=== PATIENT | female | born 1940 | race Two or more races ===

== ENCOUNTER → 2022-06-13 | Outpatient (CLI) | payer MEDICARE, OTHER, SELFPAY ==
[2022-06-13 08:09] LABS: Absolute Neutrophil Count 5.1 X10^3/uL (2.0-7.7); Basophil# 0.03 X10^3/uL; Basophil% 0.4 % (0-1); Eosinophils% 4.2 % (0-5); Hematocrit 27.5 % (37-47); Hemoglobin 8.7 g/dL (12.0-15.0); Lymphocyte % 18.3 % (19-41); Mean Corp Hgb Conc 31.6 g/dL (32-36); Mean Corpuscular Hgb 30.9 pg (27.0-32.0); Mean Corpuscular Volume 97.5 fL (81-99); Mean Platelet Vol. 10.1 fl (6.2-12.0); Monocyte# 0.38 X10^3/uL; Monocyte% 5.3 % (0-10); NRBC Flagged by Analyzer 0 % (0-5); Neutrophil # 5.06 X10^3/uL (2.7-7.7); Neutrophil % 71.2 % (47-70); Platelet Count 184 K/mm3 (150-450); RBC Distribution Width CV 13.1 % (11.6-14.6); RBC Distribution Width SD 46.5 fl (35.1-43.9); Red Blood Count 2.82 M/mm3 (4.2-5.4); White Blood Count 7.1 K/mm3 (4.4-11.0)
[2022-06-13 08:10] VITALS: BP 143/60; PULSE 58; RESP 14; TEMP 36.4; O2SAT 100; BMI 24.4
[2022-06-13] MEDS: Epoetin Alfa epbx 10,000 UNITS/ML 10000 UNIT SC (08:18)
[2022-06-13 08:33] LABS: Albumin, Serum 2.9 g/dL (3.2-5.0); BUN 58 mg/dL (7-18); BUN/Creat Ratio 15.9 RATIO (10-20); Calcium,Total 9.3 mg/dL (8.5-10.1); Chloride 107 mmol/L (98-107); Creatinine, Serum 3.65 mg/dL (0.55-1.02); EST Glomerular Filtration Rate 13 mL/min (>60); Est Glom Filt Rate - Afr Amer 15 mL/min (>60); Estimated Creatinine Clearance 8.54 ml/min; Ferritin 678 ng/mL (8-252); Glucose 157 mg/dL (74-106); Iron 69 ug/dL (50-170); Iron Binding Capacity,Total 322 ug/dL (250-450); PERCENT IRON SATURATION 21.4 % (15.0-55.0); Phosphorus 5.2 mg/dL (2.5-4.9); Potassium 4.4 mmol/L (3.5-5.1); Sodium Level 139 mmol/L (136-145)
[2022-06-13 08:38] LABS: PTHIN 117.1 pg/mL (18.4-80.1)
== END | disposition home or self-care (01) ==
LOC: MEDOUTP 07:50
PROVIDERS: Referring Provider Internal Medicine Nephrology; Visit Provider Internal Medicine Nephrology
DX: N18.32 Chronic kidney disease, stage 3b (principal); N25.81 Secondary hyperparathyroidism of renal origin; D63.1 Anemia in chronic kidney disease
CPT/HCPCS: 36415; 80069; 82728; 83540; 83550; 83970; 85025; 96372; Q5106

== ENCOUNTER 2022-06-27 08:02 | Outpatient (CLI) | payer MEDICARE, OTHER, SELFPAY ==
[2022-06-27 08:24] LABS: Absolute Lymphocyte Count 1.31 X10^3/uL (0.83-4.51); Absolute Neutrophil Count 3.7 X10^3/uL (2.0-7.7); Basophil# 0.03 X10^3/uL; Basophil% 0.5 % (0-1); Eosinophil# 0.32 X10^3/uL; Eosinophils% 5.4 % (0-5); Hematocrit 25.7 % (37-47); Hemoglobin 8.1 g/dL (12.0-15.0); Lymphocyte # 1.31 X10^3/ul (0.83-4.51); Lymphocyte % 22.3 % (19-41); Mean Corp Hgb Conc 31.5 g/dL (32-36); Mean Corpuscular Volume 98.5 fL (81-99); Mean Platelet Vol. 10.1 fl (6.2-12.0); Monocyte# 0.52 X10^3/uL; Monocyte% 8.8 % (0-10); NRBC Flagged by Analyzer 0 % (0-5); Neutrophil # 3.67 X10^3/uL (2.7-7.7); Neutrophil % 62.5 % (47-70); Platelet Count 154 K/mm3 (150-450); RBC Distribution Width CV 13.2 % (11.6-14.6); Red Blood Count 2.61 M/mm3 (4.2-5.4); White Blood Count 5.9 K/mm3 (4.4-11.0)
[2022-06-27 08:40] VITALS: BP 157/61; PULSE 58; RESP 14; TEMP 36.4; O2SAT 97; BMI 23.0
[2022-06-27 08:55] LABS: Albumin, Serum 2.7 g/dL (3.2-5.0); BUN 54 mg/dL (7-18); BUN/Creat Ratio 14.7 RATIO (10-20); Calcium,Total 9.1 mg/dL (8.5-10.1); Chloride 107 mmol/L (98-107); Creatinine, Serum 3.67 mg/dL (0.55-1.02); EST Glomerular Filtration Rate 13 mL/min (>60); Est Glom Filt Rate - Afr Amer 15 mL/min (>60); Estimated Creatinine Clearance 8.49 ml/min; Ferritin 545 ng/mL (8-252); Glucose 109 mg/dL (74-106); Iron 56 ug/dL (50-170); Iron Binding Capacity,Total 233 ug/dL (250-450); Phosphorus 5.1 mg/dL (2.5-4.9); Potassium 4.6 mmol/L (3.5-5.1); Sodium Level 138 mmol/L (136-145)
[2022-06-27] MEDS: Epoetin Alfa epbx 10,000 UNITS/ML 12500 UNIT SC (09:13)
== END 2022-06-27 23:59 | disposition home or self-care (01) ==
PROVIDERS: Referring Provider Internal Medicine Nephrology; Visit Provider Internal Medicine Nephrology
DX: N18.32 Chronic kidney disease, stage 3b (principal); N25.81 Secondary hyperparathyroidism of renal origin; D63.1 Anemia in chronic kidney disease
CPT/HCPCS: 36415; 80069; 82728; 83540; 83550; 85025; 96372; Q5106

== ENCOUNTER → 2022-07-04 | Outpatient (CLI) | payer MEDICARE, OTHER, SELFPAY ==
[2022-07-04 09:33] VITALS: BP 165/52; PULSE 66; RESP 16; TEMP 36.4; O2SAT 99; BMI 23.0
[2022-07-04] MEDS: Epoetin Alfa-EPBX 20,000 unit/ml 12500 UNIT SC (09:53)
== END | disposition home or self-care (01) ==
LOC: MEDOUTP 09:24
PROVIDERS: Referring Provider Internal Medicine Nephrology; Visit Provider Internal Medicine Nephrology
DX: N18.32 Chronic kidney disease, stage 3b (principal); D63.1 Anemia in chronic kidney disease
CPT/HCPCS: 96372; Q5106

== ENCOUNTER 2022-07-11 08:05 | Outpatient (CLI) | payer MEDICARE, OTHER, SELFPAY ==
[2022-07-11 08:20] VITALS: BP 165/65; PULSE 56; RESP 16; TEMP 36.6; O2SAT 99; BMI 23.0
[2022-07-11] MEDS: Epoetin Alfa-EPBX 20,000 unit/ml 12500 UNIT SC (08:38)
== END 2022-07-11 23:59 | disposition home or self-care (01) ==
LOC: MEDOUTP 08:05
PROVIDERS: Referring Provider Internal Medicine Nephrology; Visit Provider Internal Medicine Nephrology
DX: N18.32 Chronic kidney disease, stage 3b (principal); N25.81 Secondary hyperparathyroidism of renal origin; D63.1 Anemia in chronic kidney disease
CPT/HCPCS: 96372; Q5106

== ENCOUNTER → 2022-07-18 | Outpatient (CLI) | payer MEDICARE, OTHER, SELFPAY ==
[2022-07-18 08:16] VITALS: BP 151/57; PULSE 56; RESP 14; TEMP 36.2; O2SAT 99; BMI 23.0
[2022-07-18] MEDS: Epoetin Alfa epbx 10,000 UNITS/ML 12500 UNIT SC (08:37)
--- NOTE | 2022-07-18 10:05 | VDUE_ITS ---
Reason For Study: Preop Right Arm Left Arm Right cephalic vein is compressible. Left cephalic vein is compressible. Right Cephalic Vein at the shoulder Cephalic V at shoulder and mid bicep are too measures .09 x .11 cm. small to assess. Right Cephalic Vein mid bicep measures .15 Left Cephalic Vein above antecub measures .07 x .18 cm. x .1 cm. Right Cephalic Vein above antecub Left Cephalic Vein below antecub measures .17 measures .21 x .23 cm. x .19 cm. Right Cephalic Vein below antecub Left Cephalic Vein in the forearm measures .1 measures .17 x .2 cm. x .12 cm. Right Cephalic Vein in the forearm Left Cephalic Vein at the wrist measures .08 measures .12 x .12 cm. x .09 cm. Right Cephalic Vein at the wrist measures .1 Left basilic vein is compressible. x .11 cm. Basilic vein at bicep measures .26 x .28 cm. Right basilic vein is compressible. Basilic vein above antecub measures .24 x .27 Right Basilic Vein mid bicep measures .18 cm. x .21 cm. Basilic vein below antecub measures .12 x .13 Right Basilic Vein above antecub measures .19 cm. x .23 cm. Basilic vein in the forearm measures .12 Right Basilic Vein below antecub measures .09 x .16 cm. x .11 cm. Basilic vein at the wrist measures .11 x .13 Right Basilic Vein in the forearm cm. measures .07 x .08 cm. Brachial artery measures .36 x .39 cm. Basilic V at wrist is too small to assess. Brachial artery 131.3 cm/s. Brachial artery measures .41 x .4 cm. Radial artery measures .28 x .3 cm. Brachial artery 131.3 cm/s. Radial artery 72.9 cm/s. Radial artery measures .28 x .31 cm. Radial artery 93.0 cm/s. VL/Dialysis Vein Map PRE-OP BILAT Interpretation Summary Note the dimensions of the bilateral upper extremity cephalic veins are noted t o be diminutive. Bilateral upper arm basilic veins are small to borderline. Bilateral radial and brachial arteries demonstrate normal diameter and flow Ordering Physician: Chito Mcknight Performed By: Bairon Cobos RVT ???
== END | disposition home or self-care (01) ==
PROVIDERS: Referring Provider Internal Medicine Nephrology; Visit Provider Internal Medicine Nephrology
DX: Z01.818 Encounter for other preprocedural examination (principal); N25.81 Secondary hyperparathyroidism of renal origin; N18.32 Chronic kidney disease, stage 3b; D63.1 Anemia in chronic kidney disease
CPT/HCPCS: 93985; 96372; Q5106

== ENCOUNTER → 2022-07-25 | Outpatient (CLI) | payer MEDICARE, OTHER, SELFPAY ==
[2022-07-25 08:07] LABS: Absolute Lymphocyte Count 1.32 X10^3/uL (0.83-4.51); Basophil# 0.04 X10^3/uL; Basophil% 0.8 % (0-1); Eosinophil# 0.27 X10^3/uL; Eosinophils% 5.3 % (0-5); Hematocrit 31.7 % (37-47); Hemoglobin 9.8 g/dL (12.0-15.0); Lymphocyte # 1.32 X10^3/ul (0.83-4.51); Lymphocyte % 26.1 % (19-41); Mean Corp Hgb Conc 30.9 g/dL (32-36); Mean Corpuscular Hgb 30.3 pg (27.0-32.0); Mean Corpuscular Volume 98.1 fL (81-99); Mean Platelet Vol. 9.6 fl (6.2-12.0); Monocyte# 0.37 X10^3/uL; Monocyte% 7.3 % (0-10); NRBC Flagged by Analyzer 0 % (0-5); Neutrophil # 3.03 X10^3/uL (2.7-7.7); Neutrophil % 59.9 % (47-70); Platelet Count 175 K/mm3 (150-450); RBC Distribution Width CV 14.2 % (11.6-14.6); RBC Distribution Width SD 51.1 fl (35.1-43.9); Red Blood Count 3.23 M/mm3 (4.2-5.4); White Blood Count 5.1 K/mm3 (4.4-11.0)
[2022-07-25 08:16] VITALS: BP 143/64; PULSE 64; RESP 16; BMI 23.0
[2022-07-25 08:26] LABS: Albumin, Serum 2.8 g/dL (3.2-5.0); BUN 51 mg/dL (7-18); BUN/Creat Ratio 11.9 RATIO (10-20); Calcium,Total 9.1 mg/dL (8.5-10.1); Chloride 107 mmol/L (98-107); Creatinine, Serum 4.28 mg/dL (0.55-1.02); EST Glomerular Filtration Rate 11 mL/min (>60); Est Glom Filt Rate - Afr Amer 13 mL/min (>60); Estimated Creatinine Clearance 7.28 ml/min; Ferritin 385 ng/mL (8-252); Glucose 152 mg/dL (74-106); Iron 39 ug/dL (50-170); Iron Binding Capacity,Total 224 ug/dL (250-450); PERCENT IRON SATURATION 17.4 % (15.0-55.0); Phosphorus 5.3 mg/dL (2.5-4.9); Potassium 4.5 mmol/L (3.5-5.1); Sodium Level 138 mmol/L (136-145)
[2022-07-25] MEDS: Epoetin Alfa epbx 10,000 UNITS/ML 12500 UNIT SC (08:30)
== END | disposition home or self-care (01) ==
LOC: MEDOUTP 07:52
PROVIDERS: Referring Provider Internal Medicine Nephrology; Visit Provider Internal Medicine Nephrology
DX: N18.32 Chronic kidney disease, stage 3b (principal); N25.81 Secondary hyperparathyroidism of renal origin; D63.1 Anemia in chronic kidney disease
CPT/HCPCS: 36415; 80069; 82728; 83540; 83550; 85025; 96372; Q5106

== ENCOUNTER → 2022-07-31 | Outpatient (CLI) | payer MEDICARE, OTHER, SELFPAY ==
[2022-07-31 10:17] VITALS: BP 183/64; PULSE 60; RESP 16; TEMP 36.1; O2SAT 96
[2022-07-31 10:42] VITALS: BP 176/65
[2022-07-31] MEDS: Epoetin Alfa epbx 10,000 UNITS/ML 12500 UNIT SC (10:56)
== END | disposition home or self-care (01) ==
LOC: MEDOUTP 09:57
PROVIDERS: Referring Provider Internal Medicine Nephrology; Visit Provider Internal Medicine Nephrology
DX: N18.32 Chronic kidney disease, stage 3b (principal); N25.81 Secondary hyperparathyroidism of renal origin; D63.1 Anemia in chronic kidney disease
CPT/HCPCS: 96372; Q5106

== ENCOUNTER 2022-08-07 09:51 | Outpatient (CLI) | payer MEDICARE, OTHER, SELFPAY ==
[2022-08-07 10:11] VITALS: BP 182/55; PULSE 65; RESP 16; TEMP 36.3; O2SAT 94; BMI 23.4
[2022-08-07] MEDS: 0.9% NaCl IVPB Med Flush (250 mL) 15 ML IV (10:35)
[2022-08-07] MEDS: Epoetin Alfa epbx 10,000 UNITS/ML 12500 UNIT SC (10:35)
[2022-08-07] MEDS: 0.9% NaCl Peripheral Flush Adult/Peds IV (10:35)
[2022-08-07 12:50] VITALS: BP 190/59; PULSE 66; RESP 16; TEMP 36.3; O2SAT 98
== END 2022-08-07 23:59 | disposition home or self-care (01) ==
LOC: MEDOUTP 09:51
PROVIDERS: Referring Provider Internal Medicine Nephrology; Visit Provider Internal Medicine Nephrology
DX: N25.81 Secondary hyperparathyroidism of renal origin (principal); N18.5 Chronic kidney disease, stage 5; D63.1 Anemia in chronic kidney disease
CPT/HCPCS: 96365; 96372; J1756; J7050; A4216; Q5106

== ENCOUNTER → 2022-08-14 | Outpatient (CLI) | payer MEDICARE, OTHER, SELFPAY ==
[2022-08-14] MEDS: 0.9% NaCl IVPB Med Flush (250 mL) 15 ML IV (10:02)
[2022-08-14] MEDS: 0.9% NaCl Peripheral Flush Adult/Peds IV (10:02)
[2022-08-14 10:09] VITALS: BP 186/77; PULSE 58; RESP 16; TEMP 36.2; O2SAT 93; BMI 23.8
[2022-08-14] MEDS: Epoetin Alfa epbx 10,000 UNITS/ML 12500 UNIT SC (10:37)
[2022-08-14 12:41] VITALS: BP 178/70; PULSE 58; RESP 16; TEMP 36.2; O2SAT 97
== END | disposition home or self-care (01) ==
PROVIDERS: Referring Provider Student in an Organized Health Care Education/Training Program; Visit Provider Student in an Organized Health Care Education/Training Program
DX: N18.32 Chronic kidney disease, stage 3b (principal); D63.1 Anemia in chronic kidney disease
CPT/HCPCS: 96365; 96372; J1756; J7050; A4216; Q5106

== ENCOUNTER 2022-08-21 09:51 | Outpatient (CLI) | payer MEDICARE, OTHER, SELFPAY ==
[2022-08-21 10:01] VITALS: BP 167/60; PULSE 52; RESP 16; TEMP 36.1; O2SAT 99; BMI 23.8
[2022-08-21] MEDS: 0.9% NaCl Peripheral Flush Adult/Peds IV (10:19)
[2022-08-21] MEDS: 0.9% NaCl IVPB Med Flush (250 mL) 15 ML IV (10:19)
[2022-08-21 10:27] LABS: Absolute Lymphocyte Count 1.09 X10^3/uL (0.83-4.51); Absolute Neutrophil Count 3.7 X10^3/uL (2.0-7.7); Basophil# 0.03 X10^3/uL; Basophil% 0.5 % (0-1); Eosinophils% 3.6 % (0-5); Hematocrit 34.1 % (37-47); Hemoglobin 10.6 g/dL (12.0-15.0); Lymphocyte # 1.09 X10^3/ul (0.83-4.51); Lymphocyte % 19.5 % (19-41); Mean Corp Hgb Conc 31.1 g/dL (32-36); Mean Corpuscular Hgb 29.5 pg (27.0-32.0); Mean Platelet Vol. 10.4 fl (6.2-12.0); Monocyte# 0.44 X10^3/uL; Monocyte% 7.9 % (0-10); NRBC Flagged by Analyzer 0 % (0-5); Neutrophil # 3.72 X10^3/uL (2.7-7.7); Neutrophil % 66.7 % (47-70); Platelet Count 185 K/mm3 (150-450); RBC Distribution Width CV 15.5 % (11.6-14.6); RBC Distribution Width SD 52.9 fl (35.1-43.9); Red Blood Count 3.59 M/mm3 (4.2-5.4); White Blood Count 5.6 K/mm3 (4.4-11.0)
[2022-08-21 10:40] LABS: Albumin, Serum 2.6 g/dL (3.2-5.0); BUN 75 mg/dL (7-18); BUN/Creat Ratio 16.7 RATIO (10-20); Calcium,Total 8.8 mg/dL (8.5-10.1); Chloride 108 mmol/L (98-107); Creatinine, Serum 4.49 mg/dL (0.55-1.02); EST Glomerular Filtration Rate 10 mL/min (>60); Est Glom Filt Rate - Afr Amer 12 mL/min (>60); Estimated Creatinine Clearance 6.94 ml/min; Ferritin 606 ng/mL (8-252); Glucose 111 mg/dL (74-106); Iron 38 ug/dL (50-170); Iron Binding Capacity,Total 207 ug/dL (250-450); PERCENT IRON SATURATION 18.4 % (15.0-55.0); Potassium 4.5 mmol/L (3.5-5.1); Sodium Level 135 mmol/L (136-145)
[2022-08-21 12:06] VITALS: BP 171/59; PULSE 53; RESP 16; TEMP 35.9; O2SAT 97
== END 2022-08-21 09:52 | disposition home or self-care (01) ==
LOC: MEDOUTP 09:51
PROVIDERS: PCP Internal Medicine; Referring Provider Internal Medicine Nephrology; Visit Provider Internal Medicine Nephrology
DX: N18.5 Chronic kidney disease, stage 5 (principal); D63.1 Anemia in chronic kidney disease
CPT/HCPCS: 96365; 80069; 82728; 83540; 83550; 85025; J1756; J7050; A4216

== ENCOUNTER 2022-08-22 09:16 | Day surgery (SDC) | payer MEDICARE, OTHER, SELFPAY ==
--- NOTE | 2022-08-16 12:07 | EKG12_ITS ---
Test Reason : PRE OP Blood Pressure : / mmHG Vent. Rate : 056 BPM Atrial Rate : 056 BPM P-R Int : 202 ms QRS Dur : 068 ms QT Int : 418 ms P-R-T Axes : 033 032 074 degrees QTc Int : 403 ms Sinus bradycardia Septal infarct , age undetermined Abnormal ECG Confirmed by CARLOS A GAVIRIA, EWA ([id number]), material expeditor EY PAYAN ([id number]) on 08/19/2022 10:57:58 AM Referred By: Jose Titus Confirmed By:EWA STRAUSS MD
[2022-08-16 13:39] LABS: Absolute Lymphocyte Count 1.33 X10^3/uL (0.83-4.51); Absolute Neutrophil Count 4.3 X10^3/uL (2.0-7.7); Basophil# 0.04 X10^3/uL; Basophil% 0.6 % (0-1); Eosinophils% 3.1 % (0-5); Lymphocyte # 1.33 X10^3/ul (0.83-4.51); Lymphocyte % 20.5 % (19-41); Mean Corp Hgb Conc 31.4 g/dL (32-36); Mean Corpuscular Hgb 29.8 pg (27.0-32.0); Mean Corpuscular Volume 94.9 fL (81-99); Mean Platelet Vol. 10.8 fl (6.2-12.0); Monocyte# 0.47 X10^3/uL; Monocyte% 7.3 % (0-10); NRBC Flagged by Analyzer 0 % (0-5); Neutrophil # 4.31 X10^3/uL (2.7-7.7); Neutrophil % 66.5 % (47-70); Platelet Count 185 K/mm3 (150-450); RBC Distribution Width CV 15.2 % (11.6-14.6); RBC Distribution Width SD 52.3 fl (35.1-43.9); Red Blood Count 3.69 M/mm3 (4.2-5.4); White Blood Count 6.5 K/mm3 (4.4-11.0)
[2022-08-16 14:13] LABS: ALB/GLOB Ratio 0.8 RATIO (0.9-2.4); AST(SGOT) 18 U/L (15-37); Alanine Aminotransfer ALT/SGPT 18 U/L (13-56); Albumin, Serum 2.7 g/dL (3.2-5.0); Alkaline Phosphatase 81 U/L (45-117); Anion Gap 5 (5-15); BUN 67 mg/dL (7-18); BUN/Creat Ratio 14.7 RATIO (10-20); Calcium,Total 9.4 mg/dL (8.5-10.1); Chloride 108 mmol/L (98-107); Creatinine, Serum 4.57 mg/dL (0.55-1.02); EST Glomerular Filtration Rate 10 mL/min (>60); Est Glom Filt Rate - Afr Amer 12 mL/min (>60); Globulin 3.4 g/dL (2.2-4.2); Glucose 85 mg/dL (74-106); Potassium 4.6 mmol/L (3.5-5.1); Protein, Total 6.1 g/dL (6.4-8.2); Sodium Level 135 mmol/L (136-145); Uric Acid 7.2 mg/dL (2.6-6.0)
[2022-08-20 13:08] LABS: Vitamin D 1,25-Dihydroxy 7.1 pg/mL (24.8-81.5)
[2022-08-22] VITALS (8 sets, daily range): BP systolic 124–187; BP diastolic 47–58; PULSE 51–60; RESP 15–16; TEMP 36.2–36.6; O2SAT 93–100; BMI 23.8
--- NOTE | 2022-08-22 09:49 | PCM.HP.BLA ---
History and Physical Date of Admission: 08/22/22 Visit Reasons:?FISTULA Chief Complaint: retacrit Allergies adalimumab [From Humira] Allergy (Verified 08/01/22 10:05) Hives Medications ascorbic acid (vitamin C) 1,000 mg tablet,extended release (Vitamin C ER) 1,000 mg PO Q12H 06/13/22 [History Confirmed 08/01/22] bimatoprost 0.01 % eye drops (Lumigan) 1 drp EACH EYE DAILY 06/13/22 [History Confirmed 08/01/22] carvedilol 12.5 mg tablet 12.5 mg PO BID 06/13/22 [History Confirmed 08/01/22] famotidine 40 mg tablet 40 mg PO DAILY 06/13/22 [History Confirmed 08/01/22] folic acid 1 mg tablet 1 mg PO DAILY 06/13/22 [History Confirmed 08/01/22] gabapentin 300 mg capsule 300 mg PO TID 06/13/22 [History Confirmed 08/01/22] insulin glargine 100 unit/mL (3 mL) subcutaneous pen (Lantus Solostar U-100 Insulin) 9 unit subcut QPM 06/13/22 [History Confirmed 08/01/22] levothyroxine 25 mcg tablet 25 mcg PO DAILY 06/13/22 [History Confirmed 08/01/22] multivitamin 1 tab PO DAILY 06/13/22 [History Confirmed 08/01/22] pantoprazole 40 mg tablet,delayed release 40 mg PO DAILY 06/13/22 [History Confirmed 08/01/22] doxazosin 2 mg tablet (Cardura) 2 mg PO BID 06/20/22 [History Confirmed 08/01/22] hydralazine 50 mg tablet 50 mg PO .QID 06/20/22 [History Confirmed 08/01/22] PFSH Medical History?(Updated 08/01/22 @ 10:[address] Jose Titus MD) Anemia Cancer Diabetes Heart failure High blood pressure History of blood transfusion Kidney failure Rheumatoid arthritis Vision problems Surgical History?(Updated 08/01/22 @ 10:02 by Tania Aparicio) History of bladder surgery History of nephrectomy S/P partial hysterectomy S/P total knee arthroplasty S/P vein stripping Family History?(Updated 06/20/22 @ 15:49 by Joanne Benson) Mother Heart disease Hypertension Social History Smoking Status:? Never smoker alcohol intake:? never HPI HPI HPI: 81-year-old female.? She is being referred for surgical consultation regarding creation of arteriovenous dialysis fistula.? The patient is referred by Dr Milagros Cason to [facility] and a written compromise surgical consult recommendations will return to him. The patient has a history of type 2 diabetes and hypertension and dyslipidemia and osteoporosis and rheumatoid arthritis.? October 2020 she required a right nephrectomy for renal cell carcinoma.? Since then she has had progressive renal decline.? Her current creatinine is 3.67 with a GFR of 13 and a BUN of 54.? That laboratories with on June 27, 2022.? At that time her white blood cell count was 5.9 with a hemoglobin 8.1 and hematocrit 25.7 with a platelet count of 154,000. The patient presents with her daughter Ladarius today.? She is not in any acute distress and has no particular complaints.She is right arm dominant.? She does have a history of diastolic dysfunction and congestive heart failure. The patient had vein mapping on July 18, 2022 and I have personally reviewed and interpreted these images. Reason For Study: Preop Right Arm? Left Arm Right cephalic vein is compressible. ? Left cephalic vein is compressible. Right Cephalic Vein at the shoulder? Cephalic V at shoulder and mid bicep are too measures .09 x .11 cm. ? small to assess. Right Cephalic Vein mid bicep measures .15 ? Left Cephalic Vein above antecub measures .07 x .18 cm.? x .1 cm. Right Cephalic Vein above antecub? Left Cephalic Vein below antecub measures .17 measures .21 x .23 cm. ? x .19 cm. Right Cephalic Vein below antecub? Left Cephalic Vein in the forearm measures .1 measures .17 x .2 cm.? x .12 cm. Right Cephalic Vein in the forearm ? Left Cephalic Vein at the wrist measures .08 measures .12 x .12 cm. ? x .09 cm. Right Cephalic Vein at the wrist measures .1 ? Left basilic vein is compressible. x .11 cm.? Basilic vein at bicep measures .26 x .28 cm. Right basilic vein is compressible.? Basilic vein above antecub measures .24 x .27 Right Basilic Vein mid bicep measures .18? cm. x .21 cm.? Basilic vein below antecub measures .12 x .13 Right Basilic Vein above antecub measures .19? cm. x .23 cm.? Basilic vein in the forearm measures .12 Right Basilic Vein below antecub measures .09? x .16 cm. x .11 cm.? Basilic vein at the wrist measures .11 x .13 Right Basilic Vein in the forearm? cm. measures .07 x .08 cm. ? Brachial artery measures .36 x .39 cm. Basilic V at wrist is too small to assess. ? Brachial artery 131.3 cm/s. Brachial artery measures .41 x .4 cm.? Radial artery measures .28 x .3 cm. Brachial artery 131.3 cm/s.? Radial artery 72.9 cm/s. Radial artery measures .28 x .31 cm. Radial artery 93.0 cm/s. VL/Dialysis Vein Map PRE-OP BILAT Interpretation Summary Note the dimensions of the bilateral upper extremity cephalic veins are noted to be diminutive. Bilateral upper arm basilic veins are small to borderline. Bilateral radial and brachial arteries demonstrate normal diameter and flow ? ? Ordering Physician: Chito Mcknight Performed By: Bairon Cobos RVT Exam Const General: cooperative, comfortable and no acute distress Nutritional Appearance: average body habitus [facility] Head: normal to inspection Eyes General: appearance normal, both eyes and all related structures Neck Neck: normal visual inspection Chest Chest palpation & inspection: normal inspection of the chest Resp Other: Scattered rales right base.? Clear in the apices. Cardio Rate: regular rate Rhythm: regular rhythm GI Palpation: soft and no hepatosplenomegaly Skin General: no rashes or lesions noted Neuro General: patient alert, patient awake and patient oriented x3 Extrem Other: Left upper extremity is clean dry and intact, 3+ left radial and brachial arteries, ultrasound inspection reveals that the left upper arm basilic vein is present patent and compressible. Assessment and Plan Assessment and Plan (1) Kidney failure: ?Status:?Acute Plan I recommended the patient stage I left upper arm brachiobasilic arteriovenous fistula creation.? She is aware of the technique, benefit, risk and alternatives.? She is aware that a secondary transposition of the fistula will be required.? She and her daughter have had an option to ask any questions answered we will schedule and expedite her care.? I very much appreciate the kind opportunity of assisting with her surgical management. Copy: Dr Milagros Titus M.D., F.A.C.S. I have examined the patient and the H&P has been reviewed. There are no clinical changes since date of exam. Jose Titus M.D., F.A.C.S.
--- NOTE | 2022-08-22 10:24 | EX.PCM.DISCH ---
Discharge Instructions Procedure Fistula Diet Discharge Diet: Renal Diet Activity Discharge Activity: May Not Drive (for 2-3 days or while taking narcotic pain medications.), May Shower and May Take a Tub Bath (in 5 days.) Lifting Restrictions: 5 pounds Keep extremity elevated above heart level: - (Keep arm elevated above the heart level for 3 days.) Dressing / Incision Call your doctor if your incision/area has: Continuous Slow Oozing, Sudden Increased Bleeding (apply pressure and call your doctor.), Increased Pain/ Swelling, Increased Redness and Foul Smelling Discharge Call your doctor if you observe: Fever of 101 or Higher Suture Line Care: Avoid Pulling/Pushing and Avoid Pinching/Bending Cleanse incision/area with: Keep Dressing Clean & Dry Additional Dressing/Incision Instructions:: Change or remove dressing in 1-2 days. May protect with a gauze bandaid. You may elevate your left arm to help limit swelling and you may utilize ice. Acetaminophen or Tylenol is preferred for pain control. A written prescription for [place] was sent to your pharmacy [facility]. Exercise your left hand with a stress ball to facilitate maturation of the fistula. This would be as often as you tolerate throughout the day. Follow Up Care Please Follow Up With: Jose Titus MD When: Call [phone] to make an appointment for suture removal and follow up in 1 week. Test Results: Test results from this visit will be discussed in further detail at your follow-up appointment, if applicable. Discharge Plan Admission Primary Reason for Your Visit: Creation of arteriovenous hemodialysis fistula Attending Provider: Jose Titus Primary Care Provider: Jacky Morgan Discharge Orders/Prescriptions Prescriptions: New hydrocodone-acetaminophen 5-325 mg tablet 1 tab PO Q8H PRN (Reason: pain) 2 Days Qty: 6 0RF Continued insulin glargine [Lantus Solostar U-100 Insulin] 100 unit/mL (3 mL) insulin pen 7 unit SUBCUT QPM icosapent ethyl [Vascepa] 1 gram capsule 2 g PO BID Qty: 180 3RF hydralazine 50 mg tablet 50 mg PO .QID 90 Days Qty: 360 3RF gabapentin 100 mg capsule 200 mg PO TID 90 Days Qty: 540 3RF doxazosin [Cardura] 2 mg tablet 2 mg PO BID 90 Days Qty: 180 3RF amlodipine 5 mg tablet 5 mg PO BID 90 Days Qty: 180 3RF (DME) Juxta Lite See Rx Instructions .Route .MEDSUPPLY Qty: 2 4RF Rx Instructions: As directed multivitamin Tablet 1 tab PO DAILY carvedilol 12.5 mg Tablet 12.5 mg PO BID Rx Instructions: must administer with a meal/food famotidine 40 mg Tablet 40 mg PO DAILY Vitamin C 1,000 mg Tablet Extended Release 1,000 mg PO Q12H levothyroxine 25 mcg Tablet 25 mcg PO DAILY pantoprazole 40 mg Tablet,Delayed Release (Dr/Ec) 40 mg PO PRN PRN (Reason: Indigestion) folic acid 1 mg Tablet 1 mg PO DAILY Lumigan 0.01 % Drops 1 drp EACH EYE DAILY furosemide [Lasix] 40 mg tablet 40 mg PO QWEEK Rx Instructions: once daily as needed Referrals / Follow Up: Jacky Morgan MD [Primary Care Provider] - Disposition Disposition (needs filled in before D/C Order can be placed): Home, Self Care
[2022-08-22 10:35] LABS: Bedside Glucose 90 mg/dL (74-106)
[2022-08-22] MEDS: Cefazolin 2 GM in 0.9% Normal Saline 100 ML IV (10:37)
[2022-08-22] MEDS: Heparin Injection (Vial) 5,000 UNIT/ML VIAL 5000 UNIT (10:54)
--- NOTE | 2022-08-22 11:56 | PCM.OPRPT ---
Problems Associated Problem List Diagnoses (1) CKD (chronic kidney disease) stage 5, GFR less than 15 ml/min: Report of Operation Date of Procedure: 08/22/22 Pre-Operative Diagnosis: Stage IV chronic kidney disease Post-Operative Diagnosis: Same Surgery/Procedure Performed:: Stage I left upper extremity brachial to basilic arteriovenous hemodialysis respiration Description of Surgical Findings:: Timeout informed consent was obtained. 81-year-old female was taken to the operating room placed upon the table the left upper extremity was sterilely prepped and draped Ancef 2 g were given intravenously she underwent monitored anesthesia care. 1% lidocaine mixed 50-50 with 0.5% Marcaine was used as a local anesthetic total of 10 cc was used ultrasound was used to map the course of the basilic vein and a branch point local was instilled a transverse oblique incision was made in the distal left volar upper arm adjacent to the antecubital crease sharp dissection carried down into the subcutaneous tissue. Sharp and blunt dissection was used to identify the basilic vein laterally and it was dissected free crossing the antecubital space to get length in the very proximal left forearm. Then sharp and blunt dissection used to identify the brachial artery which was slightly elevated and a single sidebranch secured with hemoclips. The patient received 5000 units of heparin intravenously. The vein at branch point was ligated with hemoclips and then the branch point was spatulated allow for large anastomosis. The vein was irrigated with heparinized saline. Peripheral vascular clamps were placed on the brachial artery and 11 blade was used to make an arteriotomy which was extended with Ayoub scissors. A end-to-side venous to arterial anastomosis was created with a running 7-0 Prolene suture. At the completion good hemostasis was intact the vein had a good positional lie there was good flow noted Doppler signal intact inspection of the hand revealed it was viable there was Doppler signal at both the left radial and ulnar. Hemostasis was required at the operative site with interrupted 3-0 Vicryl suture and I did place some Surgicel snow medially. Hemostasis completely intact. The subcutaneous tissues approximated up to 3-0 Vicryl. The skin is just proximal and subicular 4 Monocryl. Steri-Strips Telfa tape dressings applied. Sponge and instrument and needle counts were reported to the surgeon to be correct. Specimens none. Drains none. Blood loss minimal. The patient was taken to recovery room in satisfactory addition without apparent complication Jose Titus M.D., F.A.C.S. Surgeon: Jose Titus Type of Anesthesia: Local MAC Anesthesiologist: Derek Bryson
[2022-08-22] MEDS: Bupivacaine Mpf 0.5% 30 ML VIAL (12:15)
[2022-08-22] MEDS: Lidocaine 1% (30 ml sdv) 30 ML Vial (12:15)
[2022-08-22] MEDS: HYDROcodone Bitartrate/Apap 5/325 Tablet PO (13:08)
--- NOTE | 2022-08-22 14:27 | SUR.PHASEII ---
Dressing changed by Nemo Branch, RUBBER BELT SPLICER
== END 2022-08-22 15:48 | disposition home or self-care (01) ==
LOC: SDC 09:17 → AC 09:17
PROVIDERS: PCP Internal Medicine; Referring Provider Surgery; Visit Provider Surgery
PROC: (CPT 36819; principal; 2022-08-22 10:45)
DX: I13.2 Hypertensive heart and chronic kidney disease with heart failure and with stage 5 chronic kidney disease, or end stage renal disease (principal); M06.9 Rheumatoid arthritis, unspecified; I50.32 Chronic diastolic (congestive) heart failure; N18.6 End stage renal disease; E11.9 Type 2 diabetes mellitus without complications; E78.5 Hyperlipidemia, unspecified; D64.9 Anemia, unspecified; K21.9 Gastro-esophageal reflux disease without esophagitis; E07.9 Disorder of thyroid, unspecified
CPT/HCPCS: 36819; 01844; 80053; 82652; 82962; 84550; 85025; 93005; A4648; J7040; J2405

== ENCOUNTER 2022-09-18 09:40 | Outpatient (CLI) | payer MEDICARE, OTHER, SELFPAY ==
[2022-09-18 10:14] LABS: Absolute Lymphocyte Count 1.43 X10^3/uL (0.83-4.51); Absolute Neutrophil Count 4.9 X10^3/uL (2.0-7.7); Basophil# 0.03 X10^3/uL; Basophil% 0.4 % (0-1); Eosinophil# 0.24 X10^3/uL; Eosinophils% 3.4 % (0-5); Hematocrit 30.1 % (37-47); Hemoglobin 9.5 g/dL (12.0-15.0); Lymphocyte # 1.43 X10^3/ul (0.83-4.51); Lymphocyte % 20.2 % (19-41); Mean Corp Hgb Conc 31.6 g/dL (32-36); Mean Corpuscular Hgb 29.7 pg (27.0-32.0); Mean Corpuscular Volume 94.1 fL (81-99); Mean Platelet Vol. 11.1 fl (6.2-12.0); Monocyte# 0.46 X10^3/uL; Monocyte% 6.5 % (0-10); NRBC Flagged by Analyzer 0 % (0-5); Neutrophil % 69.1 % (47-70); Platelet Count 140 K/mm3 (150-450); RBC Distribution Width CV 14.3 % (11.6-14.6); RBC Distribution Width SD 48.8 fl (35.1-43.9); White Blood Count 7.1 K/mm3 (4.4-11.0)
[2022-09-18 10:30] LABS: Albumin, Serum 2.6 g/dL (3.2-5.0); BUN 70 mg/dL (7-18); Calcium,Total 8.8 mg/dL (8.5-10.1); Chloride 109 mmol/L (98-107); Creatinine, Serum 4.66 mg/dL (0.55-1.02); EST Glomerular Filtration Rate 10 mL/min (>60); Est Glom Filt Rate - Afr Amer 12 mL/min (>60); Ferritin 837 ng/mL (8-252); Glucose 98 mg/dL (74-106); Iron 90 ug/dL (50-170); Iron Binding Capacity,Total 210 ug/dL (250-450); PERCENT IRON SATURATION 42.9 % (15.0-55.0); Phosphorus 5.8 mg/dL (2.5-4.9); Potassium 4.4 mmol/L (3.5-5.1); Sodium Level 137 mmol/L (136-145)
[2022-09-18 10:39] VITALS: BP 163/60; PULSE 56; RESP 16; TEMP 36.4; O2SAT 99; BMI 23.8
[2022-09-18] MEDS: Epoetin Alfa epbx 10,000 UNITS/ML 12500 UNIT SC (10:42)
== END 2022-09-18 09:41 | disposition home or self-care (01) ==
LOC: MEDOUTP 09:40
PROVIDERS: PCP Internal Medicine; Referring Provider Internal Medicine Nephrology; Visit Provider Internal Medicine Nephrology
DX: N18.32 Chronic kidney disease, stage 3b (principal); N25.81 Secondary hyperparathyroidism of renal origin; D63.1 Anemia in chronic kidney disease
CPT/HCPCS: 36415; 80069; 82728; 83540; 83550; 83970; 85025; 96372; Q5106

== ENCOUNTER 2022-10-10 06:07 | Day surgery (SDC) | payer MEDICARE, OTHER, SELFPAY ==
[2022-10-07 13:24] LABS: Hematocrit 28.7 % (37-47); Hemoglobin 8.8 g/dL (12.0-15.0); Mean Corp Hgb Conc 30.7 g/dL (32-36); Mean Corpuscular Hgb 29.4 pg (27.0-32.0); Mean Platelet Vol. 11.1 fl (6.2-12.0); Platelet Count 148 K/mm3 (150-450); RBC Distribution Width CV 15.1 % (11.6-14.6); RBC Distribution Width SD 52.9 fl (35.1-43.9); Red Blood Count 2.99 M/mm3 (4.2-5.4)
[2022-10-07 13:41] LABS: Anion Gap 9 (5-15); BUN 71 mg/dL (7-18); BUN/Creat Ratio 15.3 RATIO (10-20); Calcium,Total 8.9 mg/dL (8.5-10.1); Chloride 109 mmol/L (98-107); Creatinine, Serum 4.63 mg/dL (0.55-1.02); EST Glomerular Filtration Rate 10 mL/min (>60); Est Glom Filt Rate - Afr Amer 12 mL/min (>60); Glucose 100 mg/dL (74-106); Potassium 4.9 mmol/L (3.5-5.1); Sodium Level 137 mmol/L (136-145)
[2022-10-10] VITALS (9 sets, daily range): BP systolic 150–181; BP diastolic 55–62; PULSE 63–70; RESP 14–18; TEMP 36.2–36.7; O2SAT 94–96; BMI 24.5
--- NOTE | 2022-10-10 07:13 | PCM.HP.BLA ---
History and Physical Date of Admission: 10/10/22 Chief Complaint: fistula f/u Allergies adalimumab [From Humira] Allergy (Verified 08/22/22 09:40) Hives Medications ascorbic acid (vitamin C) 1,000 mg tablet,extended release (Vitamin C ER) 1,000 mg PO Q12H 06/13/22 [History Confirmed 08/30/22] bimatoprost 0.01 % eye drops (Lumigan) 1 drp EACH EYE DAILY 06/13/22 [History Confirmed 08/30/22] carvedilol 12.5 mg tablet 12.5 mg PO BID 06/13/22 [History Confirmed 08/30/22] famotidine 40 mg tablet 40 mg PO DAILY 06/13/22 [History Confirmed 08/30/22] folic acid 1 mg tablet 1 mg PO DAILY 06/13/22 [History Confirmed 08/30/22] levothyroxine 25 mcg tablet 25 mcg PO DAILY 06/13/22 [History Confirmed 08/30/22] multivitamin 1 tab PO DAILY 06/13/22 [History Confirmed 08/30/22] pantoprazole 40 mg tablet,delayed release 40 mg PO PRN PRN Indigestion 06/13/22 [History Confirmed 08/30/22] Juxta Lite #2 ea 08/15/22 [Rx Confirmed 08/30/22] amlodipine 5 mg tablet 5 mg PO BID 3 months #180 tabs 08/15/22 [Rx Confirmed 08/30/22] doxazosin 2 mg tablet (Cardura) 2 mg PO BID 3 months #180 tabs 08/15/22 [Rx Confirmed 08/30/22] furosemide 40 mg tablet (Lasix) 40 mg PO QWEEK 08/15/22 [History Confirmed 08/30/22] gabapentin 100 mg capsule 200 mg PO TID 3 months #540 caps 08/15/22 [Rx Confirmed 08/30/22] hydralazine 50 mg tablet 50 mg PO .QID 3 months #360 tabs 08/15/22 [Rx Confirmed 08/30/22] icosapent ethyl 1 gram capsule (Vascepa) 2 g PO BID #180 caps 08/15/22 [Rx Confirmed 08/30/22] insulin glargine 100 unit/mL (3 mL) subcutaneous pen (Lantus Solostar U-100 Insulin) 7 unit subcut QPM 04/20/23 [History Confirmed 08/30/22] hydrocodone-acetaminophen 5-325mg 5mg-325mg 1 tab PO Q8H PRN pain 2 days #6 tabs 08/22/22 [Rx Confirmed 08/30/22] PFSH Medical History?(Updated 08/21/22 @ 09:45 by Thelma Magdaleno) Anemia Bilateral lower extremity edema Cancer Cardiology follow-up encounter Chronic kidney disease CKD (chronic kidney disease) stage 5, GFR less than 15 ml/min Dietary restriction Gastric reflux Glaucoma Health care maintenance Heart failure History of echocardiogram History of edema History of renal disease History of stress test Hx of fracture of wrist Hyperlipidemia Hypertension Insulin dependent diabetes mellitus Kidney failure Lumbar spinal stenosis Macular degeneration Non-smoker Osteoporosis Post-menopausal Rheumatoid arthritis Shortness of breath on exertion Thyroid disease Type 2 diabetes mellitus Vision problems Wears glasses Surgical History? History of bladder surgery History of nephrectomy Hx of colonoscopy S/P partial hysterectomy S/P total knee arthroplasty S/P vein stripping Family History?(Updated 08/15/22 @ 13:36 by Joanne Benson) Mother Heart disease Hypertension OsteoporosisFather CVA (cerebral vascular accident) Hypertension Social History?(Updated 08/01/22 @ 10:02 by Tania Aparicio) Smoking Status:? Never smoker alcohol intake:? never HPI HPI HPI: 81-year-old female.? She has stage IV chronic renal disease.? She is status post stage I left upper extremity brachial to basilic arteriovenous hemodialysis fistula creation on August 22, 2022.? She returns for postoperative follow-up in anticipation of plans for staged approach and transposition. Has no specific complaints today.? She thinks that her left hand is slightly more cool.? She simply places something over to stay dry.? She has had some bleeding onto her dressing that appears to be old and dry. Exam Const General: cooperative, comfortable and no acute distress HENVT Head: normal to inspection Eyes General: appearance normal, both eyes and all related structures Chest Chest palpation & inspection: normal inspection of the chest Resp Effort & Inspection: normal respiratory effort Auscultation: clear to auscultation bilaterally Cardio Rate: regular rate Rhythm: regular rhythm GI Palpation: soft Musc Cervical Spine: normal cervical lordosis Neuro General: patient alert, patient awake and patient oriented x3 Extrem General: no calf tenderness Other: Left upper extremity has a healing oblique incision at the antecubital space.? Slight amount of swelling there.? There is a very strong pulse and thrill within the upper arm basilic vein. Psych Appearance: grossly normal Assessment and Plan Assessment and Plan (1) CKD (chronic kidney disease) stage 5, GFR less than 15 ml/min: ?Status:?Chronic ?Plan: Subsequent to stage I left upper extremity basilic vein to brachial artery arteriovenous fistula creation she appears to be having a good initial result.? Inspection of her left hand reveals an intact 3+ radial pulse and a hand that feels symmetric and warm to me.? I propose for her stage II transposition left upper arm basilic vein to brachial artery AV fistula creation.? She is aware of the technique benefits risk complication alternatives.? We will schedule and proceed at her discretion. Copy: Dr Milagros Cason I have reviewed the patient's history and physical. She is complaining of some coolness of her left hand however on clinical examination the hand is clinically warm and she has a good strong 3+ left radial pulse. There is good motor function. The left upper arm has a wonderful pulse thrill and bruit. We will now proceed with transposition left upper arm basilic vein to brachial artery arteriovenous hemodialysis fistula creation. Jose Titus M.D., F.A.C.S.
--- NOTE | 2022-10-10 07:14 | DCINST_ITS ---
Discharge Instructions Procedure Fistula Diet Discharge Diet: Renal Diet Activity Discharge Activity: May Not Drive (for 2-3 days or while taking narcotic pain medications.), May Shower (May shower in 3 days after elastic wrap is removed) and May Take a Tub Bath (in 5 days.) Lifting Restrictions: 5 pounds Keep extremity elevated above heart level: - (Keep arm elevated above the heart level for 3 days.) Additional Activity Instructions:: Leave Steri-Strips in place for 1 week please Dressing / Incision Call your doctor if your incision/area has: Continuous Slow Oozing, Sudden Increased Bleeding (apply pressure and call your doctor.), Increased Pain/ Swelling, Increased Redness and Foul Smelling Discharge Call your doctor if you observe: Fever of 101 or Higher Suture Line Care: Avoid Pulling/Pushing and Avoid Pinching/Bending Cleanse incision/area with: Keep Dressing Clean & Dry Additional Dressing/Incision Instructions:: Change or remove dressing in one day. May protect with a gauze bandaid. Follow Up Care Please Follow Up With: Jose Titus MD When: Call [phone] to make an appointment for suture removal and follow up in 7-10 days please Test Results: Test results from this visit will be discussed in further detail at your follow- up appointment, if applicable. Discharge Plan Admission Attending Provider: Jose Titus Primary Care Provider: Jacky Morgan Discharge Orders/Prescriptions Prescriptions: No Action insulin glargine [Lantus Solostar U-100 Insulin] 100 unit/mL (3 mL) insulin pen 7 unit SUBCUT QPM icosapent ethyl [Vascepa] 1 gram capsule 2 g PO BID Qty: 180 3RF hydralazine 50 mg tablet 50 mg PO .QID 90 Days Qty: 360 3RF gabapentin 100 mg capsule 200 mg PO TID 90 Days Qty: 540 3RF Rx Instructions: bid to tid as needed doxazosin [Cardura] 2 mg tablet 2 mg PO BID 90 Days Qty: 180 3RF amlodipine 5 mg tablet 5 mg PO BID 90 Days Qty: 180 3RF (DME) Juxta Lite See Rx Instructions .Route .MEDSUPPLY Qty: 2 4RF Rx Instructions: As directed multivitamin Tablet 1 tab PO DAILY carvedilol 12.5 mg Tablet 12.5 mg PO BID Rx Instructions: must administer with a meal/food famotidine 40 mg Tablet 40 mg PO DAILY Vitamin C 1,000 mg Tablet Extended Release 1,000 mg PO DAILY levothyroxine 25 mcg Tablet 25 mcg PO DAILY pantoprazole 40 mg Tablet,Delayed Release (Dr/Ec) 40 mg PO PRN PRN (Reason: Indigestion) folic acid 1 mg Tablet 1 mg PO DAILY Lumigan 0.01 % Drops 1 drp EACH EYE QHS furosemide [Lasix] 40 mg tablet 40 mg PO QWEEK Rx Instructions: q acetaminophen [Tylenol] 325 mg Capsule 650 mg PO QHS Referrals / Follow Up: Jacky Morgan MD [Primary Care Provider] - Disposition Disposition (needs filled in before D/C Order can be placed): Home, Self Care
[2022-10-10] MEDS: Cefazolin 2 GM in 0.9% Normal Saline 100 ML IV (07:27)
[2022-10-10 07:35] LABS: Bedside Glucose 252 mg/dL (74-106)
[2022-10-10 07:35] LABS: Bedside Glucose 52 mg/dL (74-106)
[2022-10-10] MEDS: Heparin Injection (Vial) 5,000 UNIT/ML VIAL 5000 UNIT (07:45)
[2022-10-10] MEDS: Bupivacaine Mpf 0.5% 30 ML VIAL (09:13)
[2022-10-10] MEDS: Lidocaine 1% (20 ml mdv) 20 ML Vial (09:13)
--- NOTE | 2022-10-10 09:16 | PCM.OPRPT ---
Report of Operation Date of Procedure: 10/10/22 Pre-Operative Diagnosis: Stage IV chronic kidney disease Post-Operative Diagnosis: Same Surgery/Procedure Performed:: Stage II transposition left upper arm basilic vein to brachial artery arteriovenous hemodialysis fistula creation Description of Surgical Findings:: Timeout informed consent was obtained. 81-year-old female was taken to the operating placed on the table underwent general anesthesia Ancef 2 g were given intravenously the left upper extremity was sterilely prepped and draped 1% lidocaine mixed 50-50 with 0.5% Marcaine was used as a local anesthetic. Throughout the procedure a total of 30 cc was used. Local was instilled. A longitudinal incision was made along the upper inner aspect of the left upper arm electrocautery dissection sharp and blunt dissection was used to identify the basilic vein which had matured nicely from the previous stage I event. Tediously side branches were secured were needed with hemoclips and with 0 Vicryl ligatures. The vein was dissected out proximally until good length was achieved. Having performed that then I measured the length of the vein and distally selected a spot and dissected free the brachial artery. Vesseloops were placed. I ligated the vein distally with a 0 Vicryl. Irrigated it. I had an ink froilan. I then placed a timer distally to proximally and then carefully advanced the vein more superficially placed and closer to the more dorsal aspect of the arm. Having achieved that the patient received 5000 of heparin intravenously. Peripheral vascular clamps were placed on the brachial artery and 11 blade was used to make an arteriotomy which was extended with Ayoub scissors. I limited this to a 5 mm arteriotomy. A end-to-side venous to arterial anastomosis was created with a running 7-0 Prolene. Prior to completion there was good antegrade and retrograde flow. The anastomosis was completed and there was excellent hemostasis. There was a good pulse and thrill within the fistula and a good positional lie. I then checked the left radial pulse notable for a 3+ left radial pulse remaining the hand appeared to be pink with good capillary refill. Patient received 20 mg of protamine as reversal agent. The wound was closed in multiple layers with interrupted 3-0 Vicryl and then a running subicular 4-0 Monocryl. Steri-Strips Telfa's soft roll Wilder wrap applied. Sponge and instrument and needle counts were reported to the surgeon to be correct. Specimens none. Drains none. Blood loss 50 cc. She was taken to the recovery area in satisfied condition without apparent complication. Jose Titus M.D., F.A.C.S. Surgeon: Jose Titus Type of Anesthesia: General and Local Anesthesiologist: Migel Moyer
--- NOTE | 2022-10-10 13:00 | SUR.PHASEII ---
PT ready to be discharged home, after she was dressed she felt that her legs were weak and wanted to get back in bed, snack given. Will monitor. Daughter in law at bedside.
[2022-10-10 13:26] LABS: Bedside Glucose 94 mg/dL (74-106)
--- NOTE | 2022-10-10 14:45 | SUR.PHASEII ---
Pt walked in mc, steady on feet, denies any c/o states she feels she is ready to go home.
== END 2022-10-10 14:51 | disposition home or self-care (01) ==
LOC: SDC 06:08 → AC 06:09
PROVIDERS: PCP Internal Medicine; Referring Provider Surgery; Visit Provider Surgery
PROC: (CPT 36819; principal; 2022-10-10 07:15)
DX: I12.0 Hypertensive chronic kidney disease with stage 5 chronic kidney disease or end stage renal disease (principal); N18.5 Chronic kidney disease, stage 5; Z79.4 Long term (current) use of insulin; E11.9 Type 2 diabetes mellitus without complications; R60.0 Localized edema; E78.5 Hyperlipidemia, unspecified; M81.0 Age-related osteoporosis without current pathological fracture; D64.9 Anemia, unspecified; K21.9 Gastro-esophageal reflux disease without esophagitis; Z87.448 Personal history of other diseases of urinary system
CPT/HCPCS: 36819; 36415; 80048; 82962; 85027; A4648; J7040; J2405

== ENCOUNTER 2022-10-16 09:51 | Outpatient (CLI) | payer MEDICARE, OTHER, SELFPAY ==
[2022-10-16 10:34] LABS: Absolute Lymphocyte Count 1.29 X10^3/uL (0.83-4.51); Absolute Neutrophil Count 4.8 X10^3/uL (2.0-7.7); Basophil# 0.03 X10^3/uL; Basophil% 0.4 % (0-1); Eosinophil# 0.42 X10^3/uL; Eosinophils% 5.8 % (0-5); Hematocrit 27.1 % (37-47); Hemoglobin 8.3 g/dL (12.0-15.0); Lymphocyte # 1.29 X10^3/ul (0.83-4.51); Lymphocyte % 17.9 % (19-41); Mean Corp Hgb Conc 30.6 g/dL (32-36); Mean Corpuscular Hgb 29.5 pg (27.0-32.0); Mean Corpuscular Volume 96.4 fL (81-99); Mean Platelet Vol. 10.6 fl (6.2-12.0); Monocyte# 0.57 X10^3/uL; Monocyte% 7.9 % (0-10); NRBC Flagged by Analyzer 0 % (0-5); Neutrophil # 4.81 X10^3/uL (2.7-7.7); Neutrophil % 66.8 % (47-70); Platelet Count 169 K/mm3 (150-450); RBC Distribution Width CV 14.7 % (11.6-14.6); RBC Distribution Width SD 51.7 fl (35.1-43.9); Red Blood Count 2.81 M/mm3 (4.2-5.4); White Blood Count 7.2 K/mm3 (4.4-11.0)
[2022-10-16 10:56] LABS: Albumin, Serum 2.4 g/dL (3.2-5.0); BUN 62 mg/dL (7-18); BUN/Creat Ratio 13.6 RATIO (10-20); Calcium,Total 8.7 mg/dL (8.5-10.1); Chloride 109 mmol/L (98-107); Creatinine, Serum 4.57 mg/dL (0.55-1.02); EST Glomerular Filtration Rate 10 mL/min (>60); Est Glom Filt Rate - Afr Amer 12 mL/min (>60); Ferritin 902 ng/mL (8-252); Glucose 96 mg/dL (74-106); Iron 64 ug/dL (50-170); Iron Binding Capacity,Total 194 ug/dL (250-450); Phosphorus 4.4 mg/dL (2.5-4.9); Potassium 4.6 mmol/L (3.5-5.1); Sodium Level 137 mmol/L (136-145)
== END 2022-10-16 09:52 | disposition home or self-care (01) ==
PROVIDERS: PCP Internal Medicine; Referring Provider Internal Medicine Nephrology; Visit Provider Internal Medicine Nephrology
DX: N18.32 Chronic kidney disease, stage 3b (principal); D63.1 Anemia in chronic kidney disease
CPT/HCPCS: 36415; 80069; 82728; 83540; 83550; 85025

== ENCOUNTER 2022-10-17 12:39 | Outpatient (CLI) | payer MEDICARE, OTHER, SELFPAY ==
[2022-10-17 12:52] VITALS: BP 168/60; PULSE 76; RESP 16; TEMP 36.6
[2022-10-17] MEDS: Epoetin Alfa epbx 10,000 UNITS/ML 12500 UNIT SC (12:59)
== END 2022-10-17 12:40 | disposition home or self-care (01) ==
LOC: MEDOUTP 12:39
PROVIDERS: PCP Internal Medicine; Referring Provider Internal Medicine Nephrology; Visit Provider Internal Medicine Nephrology
DX: N18.5 Chronic kidney disease, stage 5 (principal); D63.1 Anemia in chronic kidney disease
CPT/HCPCS: 96372; Q5106

== ENCOUNTER 2022-10-23 10:24 | Outpatient (CLI) | payer MEDICARE, OTHER, SELFPAY ==
[2022-10-23 10:34] VITALS: BP 190/56; PULSE 73; RESP 16; TEMP 35.7; O2SAT 100; BMI 24.7
[2022-10-23] MEDS: Epoetin Alfa epbx 10,000 UNITS/ML 12500 UNIT SC (11:05)
== END 2022-10-23 10:25 | disposition home or self-care (01) ==
LOC: MEDOUTP 10:24
PROVIDERS: PCP Internal Medicine; Referring Provider Internal Medicine Nephrology; Visit Provider Internal Medicine Nephrology
DX: N18.32 Chronic kidney disease, stage 3b (principal); D63.1 Anemia in chronic kidney disease
CPT/HCPCS: 96372; Q5106

== ENCOUNTER 2022-10-30 09:49 | Outpatient (CLI) | payer MEDICARE, OTHER, SELFPAY ==
[2022-10-30 09:59] VITALS: BP 154/66; PULSE 82; RESP 16; TEMP 36.5; O2SAT 97; BMI 30.7
[2022-10-30] MEDS: Epoetin Alfa epbx 10,000 UNITS/ML 12500 UNIT SC (10:31)
== END 2022-10-30 09:50 | disposition home or self-care (01) ==
PROVIDERS: PCP Internal Medicine; Referring Provider Internal Medicine Nephrology; Visit Provider Internal Medicine Nephrology
DX: N18.5 Chronic kidney disease, stage 5 (principal); D63.1 Anemia in chronic kidney disease
CPT/HCPCS: 96372; Q5106

== ENCOUNTER → 2022-10-31 | Outpatient (CLI) | payer MEDICARE, OTHER, SELFPAY ==
[2022-10-31 11:50] LABS: Absolute Lymphocyte Count 1.14 X10^3/uL (0.83-4.51); Absolute Neutrophil Count 3.8 X10^3/uL (2.0-7.7); Basophil# 0.02 X10^3/uL; Basophil% 0.3 % (0-1); Eosinophil# 0.35 X10^3/uL; Eosinophils% 6.1 % (0-5); Hematocrit 28.2 % (37-47); Lymphocyte # 1.14 X10^3/ul (0.83-4.51); Lymphocyte % 19.8 % (19-41); Mean Corp Hgb Conc 31.9 g/dL (32-36); Mean Corpuscular Volume 97.2 fL (81-99); Mean Platelet Vol. 10.2 fl (6.2-12.0); Monocyte# 0.41 X10^3/uL; Monocyte% 7.1 % (0-10); NRBC Flagged by Analyzer 0 % (0-5); Neutrophil # 3.81 X10^3/uL (2.7-7.7); Neutrophil % 66.2 % (47-70); Platelet Count 178 K/mm3 (150-450); RBC Distribution Width CV 16.5 % (11.6-14.6); RBC Distribution Width SD 59.3 fl (35.1-43.9); White Blood Count 5.8 K/mm3 (4.4-11.0)
[2022-10-31 11:53] LABS: Protein, Urine (Random) 614.8 mg/dL (<11.9); Protein:Creat Ratio 11260 mg/g CRE (0-200)
[2022-10-31 12:24] LABS: Anion Gap 8 (5-15); BUN 58 mg/dL (7-18); BUN/Creat Ratio 10.8 RATIO (10-20); Calcium,Total 9.1 mg/dL (8.5-10.1); Chloride 106 mmol/L (98-107); Creatinine, Serum 5.37 mg/dL (0.55-1.02); EST Glomerular Filtration Rate 8 mL/min (>60); Est Glom Filt Rate - Afr Amer 10 mL/min (>60); Glucose 89 mg/dL (74-106); PTHIN 183.2 pg/mL (18.4-80.1); Potassium 4.4 mmol/L (3.5-5.1); Sodium Level 135 mmol/L (136-145); Uric Acid 6.7 mg/dL (2.6-6.0)
[2022-11-02 14:10] LABS: Vitamin D 1,25-Dihydroxy 7.5 pg/mL (24.8-81.5)
== END | disposition home or self-care (01) ==
LOC: LAB 11:18
PROVIDERS: PCP Internal Medicine; Referring Provider Student in an Organized Health Care Education/Training Program; Visit Provider Student in an Organized Health Care Education/Training Program
DX: N18.5 Chronic kidney disease, stage 5 (principal)
CPT/HCPCS: 36415; 80048; 82570; 82652; 83970; 84156; 84550; 85025

== ENCOUNTER → 2022-11-05 | Outpatient (CLI) | payer MEDICARE, OTHER, SELFPAY ==
[2022-11-05 09:52] LABS: Absolute Lymphocyte Count 1.09 X10^3/uL (0.83-4.51); Basophil# 0.02 X10^3/uL; Basophil% 0.3 % (0-1); Eosinophil# 0.46 X10^3/uL; Eosinophils% 6.5 % (0-5); Hematocrit 29.6 % (37-47); Hemoglobin 8.8 g/dL (12.0-15.0); Lymphocyte # 1.09 X10^3/ul (0.83-4.51); Lymphocyte % 15.3 % (19-41); Mean Corp Hgb Conc 29.7 g/dL (32-36); Mean Corpuscular Hgb 30.4 pg (27.0-32.0); Mean Corpuscular Volume 102.4 fL (81-99); Mean Platelet Vol. 10.5 fl (6.2-12.0); Monocyte# 0.46 X10^3/uL; Monocyte% 6.5 % (0-10); NRBC Flagged by Analyzer 0 % (0-5); Neutrophil # 5.02 X10^3/uL (2.7-7.7); Neutrophil % 70.6 % (47-70); Platelet Count 184 K/mm3 (150-450); RBC Distribution Width CV 16.3 % (11.6-14.6); Red Blood Count 2.89 M/mm3 (4.2-5.4); White Blood Count 7.1 K/mm3 (4.4-11.0)
[2022-11-05 10:37] LABS: AST(SGOT) 14 U/L (15-37); Anion Gap 9 (5-15); BUN 60 mg/dL (7-18); BUN/Creat Ratio 11.2 RATIO (10-20); Calcium,Total 8.9 mg/dL (8.5-10.1); Chloride 109 mmol/L (98-107); Cholesterol 180 mg/dL (200); Creatinine, Serum 5.37 mg/dL (0.55-1.02); EST Glomerular Filtration Rate 8 mL/min (>60); Est Glom Filt Rate - Afr Amer 10 mL/min (>60); Glucose 66 mg/dL (74-106); High Density Lipoprotein 65 mg/dL; Potassium 4.6 mmol/L (3.5-5.1); Sodium Level 137 mmol/L (136-145); T4 Free Direct 1.01 ng/dL (0.76-1.46); Triglycerides 179 mg/dL; Very Low Density Lipoprotein 36 mg/dL (5-40)
[2022-11-05 10:58] LABS: Hemoglobin A1c < 3.8 % (3.8-5.6)
[2022-11-06 06:45] LABS: Alanine Aminotransfer ALT/SGPT 11 U/L (13-56)
== END | disposition home or self-care (01) ==
LOC: LAB 08:53
PROVIDERS: PCP Internal Medicine; Referring Provider Internal Medicine Endocrinology, Diabetes & Metabolism; Visit Provider Internal Medicine Endocrinology, Diabetes & Metabolism
DX: E11.65 Type 2 diabetes mellitus with hyperglycemia (principal); E03.9 Hypothyroidism, unspecified; E78.2 Mixed hyperlipidemia; D63.8 Anemia in other chronic diseases classified elsewhere
CPT/HCPCS: 36415; 80048; 80061; 83036; 84439; 84443; 84450; 84460; 85025

== ENCOUNTER 2022-11-06 09:17 | Outpatient (CLI) | payer MEDICARE, OTHER, SELFPAY ==
[2022-11-06 11:09] VITALS: BP 177/55; PULSE 77; RESP 16; TEMP 36.3
[2022-11-06] MEDS: Epoetin Alfa epbx 10,000 UNITS/ML 15000 UNIT SC (11:14)
== END 2022-11-06 09:18 | disposition home or self-care (01) ==
LOC: MEDOUTP 09:17
PROVIDERS: PCP Internal Medicine; Referring Provider Internal Medicine Nephrology; Visit Provider Internal Medicine Nephrology
DX: N18.5 Chronic kidney disease, stage 5 (principal); D63.1 Anemia in chronic kidney disease
CPT/HCPCS: 96372; Q5106

== ENCOUNTER → 2022-11-11 | Outpatient (CLI) | payer MEDICARE, OTHER, SELFPAY ==
[2022-11-11 11:49] LABS: Ferritin 598 ng/mL (8-252); Iron 36 ug/dL (50-170); Iron Binding Capacity,Total 177 ug/dL (250-450); PERCENT IRON SATURATION 20.3 % (15.0-55.0)
== END | disposition home or self-care (01) ==
LOC: LAB 10:06
PROVIDERS: PCP Internal Medicine; Referring Provider Student in an Organized Health Care Education/Training Program; Visit Provider Student in an Organized Health Care Education/Training Program
DX: N18.5 Chronic kidney disease, stage 5 (principal); D63.1 Anemia in chronic kidney disease
CPT/HCPCS: 36415; 82728; 83540; 83550

== ENCOUNTER 2022-11-13 10:02 | Outpatient (CLI) | payer MEDICARE, OTHER, SELFPAY ==
[2022-11-13 10:11] VITALS: BP 167/56; PULSE 75; RESP 16; TEMP 36.3; O2SAT 98; BMI 24.4
[2022-11-13 10:37] VITALS: BP 160/51; PULSE 67
[2022-11-13] MEDS: Epoetin Alfa epbx 10,000 UNITS/ML 20000 UNIT SC (10:38)
== END 2022-11-13 10:03 | disposition home or self-care (01) ==
LOC: MEDOUTP 10:03
PROVIDERS: PCP Internal Medicine; Referring Provider Internal Medicine Nephrology; Visit Provider Internal Medicine Nephrology
DX: N18.5 Chronic kidney disease, stage 5 (principal); D63.1 Anemia in chronic kidney disease
CPT/HCPCS: 96372; Q5106

== ENCOUNTER → 2022-11-19 | Outpatient (CLI) | payer MEDICARE, OTHER, SELFPAY ==
[2022-11-19 11:59] LABS: Anion Gap 8 (5-15); BUN 65 mg/dL (7-18); Calcium,Total 8.7 mg/dL (8.5-10.1); Chloride 105 mmol/L (98-107); EST Glomerular Filtration Rate 7 mL/min (>60); Est Glom Filt Rate - Afr Amer 9 mL/min (>60); Glucose 116 mg/dL (74-106); Potassium 4.3 mmol/L (3.5-5.1); Sodium Level 134 mmol/L (136-145)
== END | disposition home or self-care (01) ==
LOC: LAB 10:28
PROVIDERS: PCP Internal Medicine; Referring Provider Student in an Organized Health Care Education/Training Program; Visit Provider Student in an Organized Health Care Education/Training Program
DX: N18.5 Chronic kidney disease, stage 5 (principal)
CPT/HCPCS: 36415; 80048

== ENCOUNTER 2022-11-20 09:56 | Outpatient (CLI) | payer MEDICARE, OTHER, SELFPAY ==
[2022-11-20 10:05] VITALS: BP 151/54; PULSE 65; RESP 16; TEMP 36.2; O2SAT 100; BMI 24.7
[2022-11-20] MEDS: Epoetin Alfa-EPBX 20,000 unit/ml 20000 UNIT SC (10:29)
[2022-11-20 12:25] VITALS: BP 154/48; PULSE 62; RESP 16
== END 2022-11-20 09:57 | disposition home or self-care (01) ==
PROVIDERS: PCP Internal Medicine; Referring Provider Internal Medicine Nephrology; Visit Provider Internal Medicine Nephrology
DX: N18.32 Chronic kidney disease, stage 3b (principal); D63.1 Anemia in chronic kidney disease
CPT/HCPCS: 96365; 96366; 96372; J1756; J7050; A4216; Q5106

== ENCOUNTER → 2022-11-20 | Outpatient (CLI) | payer MEDICARE, OTHER, SELFPAY ==
--- NOTE | 2022-11-20 13:22 | RAD_ITS ---
INDICATION: SOB EXAMINATION/TECHNIQUE: X-RAY - XR Chest 2 Views COMPARISON: No previous relevant examinations available for comparison.. FINDINGS: LIFE-SUPPORT AND LINES: 1. None HEART AND VESSELS: Cardiac silhouette is upper limit of normal, no evidence congestive failure. LUNGS AND PLEURAL SPACES: Retrocardiac LEFT lower lobe atelectasis, small LEFT effusion. Trace RIGHT effusion. Remaining lung zones clear. No pulmonary mass is noted. MEDIASTINUM AND HILAR REGIONS: No masses adenopathy noted. No areas of calcification. Visualized upper airway is normal in position. BONY ELEMENTS: No acute bony changes noted. RAD/Chest PA and Lateral IMPRESSION: 1. Retrocardiac LEFT lower lobe atelectasis versus subtle retrocardiac LEFT lower lobe infiltrate and LEFT effusion. Trace RIGHT effusion noted. 2. Remaining lung zones clear. 3. No evidence of congestive failure Electronically Signed: Martinez May MD at 20:48 EDT ,
[2022-11-20 15:07] LABS: Hepatitis B Surface Antibody Non-Reactive; Hepatitis B Surface Antigen Non-Reactive (Nonreactive)
[2022-11-22 05:07] LABS: Hepatitis B Core Ab Total Negative (Negative)
== END | disposition home or self-care (01) ==
LOC: LAB 13:08
PROVIDERS: PCP Internal Medicine; Referring Provider Student in an Organized Health Care Education/Training Program; Visit Provider Student in an Organized Health Care Education/Training Program
DX: Z11.9 Encounter for screening for infectious and parasitic diseases, unspecified (principal); R06.02 Shortness of breath
CPT/HCPCS: 36415; 71046; 86704; 86706; 87340

== ENCOUNTER 2022-11-28 09:30 | Outpatient (CLI) | payer MEDICARE, OTHER, SELFPAY ==
[2022-11-28 09:38] VITALS: BP 151/45; PULSE 65; RESP 16; TEMP 36.5; O2SAT 98; BMI 24.4
[2022-11-28] MEDS: Epoetin Alfa-EPBX 20,000 unit/ml 20000 UNIT SC (09:57)
== END 2022-11-28 09:31 | disposition home or self-care (01) ==
LOC: MEDOUTP 09:30
PROVIDERS: PCP Internal Medicine; Referring Provider Student in an Organized Health Care Education/Training Program; Visit Provider Student in an Organized Health Care Education/Training Program
DX: N18.32 Chronic kidney disease, stage 3b (principal); D63.1 Anemia in chronic kidney disease
CPT/HCPCS: 96372; Q5106

== ENCOUNTER → 2023-06-05 | Outpatient (CLI) | payer MEDICARE, OTHER, SELFPAY ==
[2023-06-05 17:18] LABS: Cholesterol 185 mg/dL (200); High Density Lipoprotein 57 mg/dL; Thyroid Stim Hormone (TSH) 2.88 uIU/mL (0.358-3.74); Triglycerides 182 mg/dL; Very Low Density Lipoprotein 36 mg/dL (5-40)
== END | disposition home or self-care (01) ==
LOC: BIMLAB 14:22
PROVIDERS: PCP Internal Medicine; Visit Provider Internal Medicine
DX: I10 Essential (primary) hypertension (principal); E11.9 Type 2 diabetes mellitus without complications
CPT/HCPCS: 36415; 80061; 83036; 84443

== ENCOUNTER 2023-06-17 13:00 | Outpatient (RCR) | payer MEDICARE, OTHER, SELFPAY ==
--- NOTE | 2023-06-10 16:48 | HP.PTEVAL ---
Patient's Visit Information Visit Information Visit Information: MONA ESTRELLA is a 82 year old F referred to Physical Therapy by Dr. Jacky Morgan MD with a diagnosis of dizzyness/giddiness. Date of Evaluation: 06/10/23 Physical Therapist: Sung Viveros, BET, OCS, CSCS Visit Plan Frequency: 1-2x /Week Duration: 2-4 Weeks Plan: 1-2x/week for 2-4 weeks for positional treatments and exercises and balance as needed. Subjective Subjective: One month of dizzyness for no reason. Fell at first but not since and does not want walker or cane. Walking slowly. Lying down gets very dizzy. Worse in the morning. Now feels OK at rest, walking is still off. Lying down is still a problem and the room spins which last 3-4 minutes. It goes away. Just unsteady with ambulation. Bending over also causes it and looking up might. Sleep is OK Not employed. Spends day on dialysis 3 days per week, sleeps at home, Does some meal prep at home. Dresses self, bathroom I, showers alone. Hobbies: cooking and work at home but not much anymore, stopped them before the dizzyness. lives with son and dtr in law and . Objective Objective: Walks slowly but steadily with short steps back to PT room, transition to chair and table slow but without assist. cervical aROM WFL without pain. UE AROM slow but WFL. reflexes 2/3 patella and achilles UE strength 3/5 without pain. Positional: - R Hallpike justin + L hallpike justin for up torsional nystagmus 10 seconds. Treated with modified neo then - HD. Walked out slowly but feeling better and slightly faster than entering. 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 They have on at home Balance/Special Test Scores Functional Gait Assessment Score: 23 % Disability: 23.3400 Dizziness Score: 86 Goals Goal 1:: abolish dizzyness with position change Goal Time Frame: 2-4 Weeks Goal 2:: pt feel back to normal mobility Goal Time Frame: 2-4 Weeks Rehabilitation Potential Physical Therapy Diagnosis: BPPV effecting gait and comfort Rehabilitation Potential: Fair Anticipated Interventions Patient/Client Instruction: Educate patient on: Condition For the Purpose of:: To increase tolerance to activity/condition/position, To improve ability of physical actions for home/community/work/leisure and To improve gait and locomotor functions Comment: positional For the Purpose of:: To increase tolerance to activity/condition/position, To improve ability of physical actions for home/community/work/leisure and To improve gait and locomotor functions Text: Thank you for the opportunity to evaluate your patient. For Medicare and Medicare HMO plans, please review the plan of care and approve it. It will need to be FAXED BACK to us at [phone] for Medicare purposes. For Medicare only, by signing this I certify the plan of care. Please let me know if there are questions or concerns regarding this plan of care. Physician Signature: Date:
--- NOTE | 2023-06-17 13:45 | HP.PTREVAL_ITS ---
Re-Evaluation Intro: Dr. Jacky Morgan MD, It has been my pleasure to treat MONA ESTRELLA over the last 2 visits for dizzyness/giddiness. Please see the progress note below for an update on the physical therapy plan of care! Subjective Subjective: Better but not great. Still unsteady and dizzy at times. No bad spinning lately. Lost cane but will get another one. feels weaker and more tired than last week. 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 Objective Objective/Function: - B hallpike justin and roll test today, no nystagmus. Still dizzy sitting up but not with lying down. FGA is 4 points worse than last session despite the negative positional tests today. Slower and weaker gait apttern and recommended wh walker today for safety. They have one at home. Oculomotor unremarkable for dizzyness but very slow pursuit, saccades and VOR, hard to keep eye on finger even with very slow pursuit. - ocular tilt - skew eye deviation Very poor eye on target coordination. based on - positional but worsening balance, poor eye exam and overall slower,weaker appearance, recommend patient to doctor prior to pursuing any more theerapy but keep chart open adn they will call to reschedule if no other better options and that will be for balance and vestibular eye exercises to tolerance. Plan Plan Plan: Pt to schedule with doctor and use wh walker. Will get check up and see if other options for weakness, dizzyness, imbalance prior to continuing therapy, will call after doctor visit. pt wished for this rather than going through balance and eye exeercises immediately which I think is appropriate. Balance/Gait/Functional tests Balance/Special Test Scores Functional Gait Assessment Score: 19 % Disability: 36.6700 Dizziness Score: 86 Goals Goals Goal 1:: abolish dizzyness with position change Goal Time Frame: 2-4 Weeks Goal Progress: lying met Goal 2:: pt feel back to normal mobility Goal Time Frame: 2-4 Weeks Goal Progress: worsening Anticipated Interventions Anticipated Interventions Patient/Client Instruction: Educate patient on: Condition For the Purpose of:: To increase tolerance to activity/condition/position, To improve ability of physical actions for home/community/work/leisure and To improve gait and locomotor functions Comment: positional For the Purpose of:: To increase tolerance to activity/condition/position, To improve ability of physical actions for home/community/work/leisure and To improve gait and locomotor functions Re-Evaluation Ending Re-evaluation ending: Please do not hesitate to contact me at [phone] by phone or if you have questions or concerns regarding this new plan of care! Sincerely, Sung Viveros, DPT, OCS, CSCS
--- NOTE | 2023-08-05 15:45 | HP.PT.NRP ---
Patient Information Patient Information: MONA ESTRELLA was seen in my office for initial evaluation on 06/10/23. The following Plan of Care was established for this patient: POC Established Initial Frequency: 1-2x /Week Initial Duration: 2-4 Weeks Anticipated Interventions Patient/Client Instruction: Educate patient on: Condition For the Purpose of:: To increase tolerance to activity/condition/position, To improve ability of physical actions for home/community/work/leisure and To improve gait and locomotor functions For the Purpose of:: To increase tolerance to activity/condition/position, To improve ability of physical actions for home/community/work/leisure and To improve gait and locomotor functions Last Seen Last Seen: This patient was last seen in our office 06/17/23. Pertinent comments regarding their Physical therapy will appear below: Pt seen 2 visits and was not improving and was sent back to doctor and will not be returning to PT. At this point I will be discontinuing this patient from physical therapy. I would be happy to see this patient again in the future if found appropriate by the physician. Thank you! Sung Viveros, DPT, OCS, CSCS Balance/Gait/Functional tests Balance/Special Test Scores Functional Gait Assessment Score: 19 % Disability: 36.6700 Dizziness Score: 86
== END 2023-06-17 19:00 | disposition home or self-care (01) ==
LOC: PT 13:00
PROVIDERS: PCP Internal Medicine; Referring Provider Internal Medicine; Visit Provider Internal Medicine
DX: R42 Dizziness and giddiness (principal)
CPT/HCPCS: 97161; 97530

== ENCOUNTER 2023-07-15 22:40 | Inpatient (IN) | payer MEDICARE, OTHER, SELFPAY ==
[2023-07-15 22:44] VITALS: BP 235/92; PULSE 100; RESP 21; TEMP 37.4; O2SAT 98; BMI 21.5
[2023-07-15 22:48] VITALS: BP 235/92; PULSE 100; RESP 21; TEMP 37.4; O2SAT 98
[2023-07-15 22:55] VITALS: BP 221/87; PULSE 97; RESP 26; TEMP 37.4; O2SAT 97
--- NOTE | 2023-07-15 23:02 | CT_ITS ---
INDICATION: altered mental status EXAMINATION: CT BRAIN - CT Head or Brain W/O Contrast Injection TECHNIQUE: Multiple axial images were obtained of the head with sagittal and coronal reconstructed images. Individualized dose optimization techniques were used for this CT. IV contrast dosage and agent: None. COMPARISON: None. FINDINGS: BRAIN PARENCHYMA: No evidence of an acute infarct or intracranial hemorrhage. No evidence of a mass. White matter changes consistent with mild to moderate chronic microvascular disease. Chronic left basal ganglia lacunar infarct. CSF SPACES: Moderate cerebral atrophy. CALVARIUM, SKULL BASE, PARANASAL SINUSES AND MASTOID AIR CELLS: No fracture. Mastoid air cells are clear. Visualized paranasal sinuses are unremarkable. ORBITS: The globes, extraocular muscles, optic nerves and retrobulbar fat are unremarkable. CT/Brain/Head without Contrast IMPRESSION: No acute intracranial abnormality. Electronically Signed: Edmar Sams DO at 0:39 EDT ,
--- NOTE | 2023-07-15 23:03 | EKG12_ITS ---
Test Reason : Blood Pressure : / mmHG Vent. Rate : 095 BPM Atrial Rate : 095 BPM P-R Int : 216 ms QRS Dur : 072 ms QT Int : 346 ms P-R-T Axes : 059 002 060 degrees QTc Int : 434 ms Sinus rhythm with 1st degree A-V block Cannot rule out Septal infarct , age undetermined Abnormal ECG Confirmed by John Paul Oconnor ([id number]), advertising editor YE PAYAN ([id number]) on 07/17/2023 11:03:27 AM Referred By: Confirmed By:John Paul Oconnor
--- NOTE | 2023-07-15 23:07 | EDS_ITS ---
HPI History of Present Illness Chief Complaint: Confusion Informant: patient, family and EMS Narrative Narrative: 82-year-old female acutely confused today. Last known well was sometime today. Multiple family members in and out of the home where she lives with them. She is usually very sharp, but is very confused tonight. She is at times of unresponsiveness where she does respond to voice and opens her eyes but then would not respond verbally for some time and when she does answers are inappropriate. She was found on the floor tonight after having fallen in the bathroom. Unknown if any injury. There was another fall 1 or 2 weeks ago in which there was no injury as well. 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 No other new symptoms noticed by family. [facility] Medical History Anemia Arthritis Bilateral lower extremity edema Cancer Cardiomyopathy CKD (chronic kidney disease) stage 5, GFR less than 15 ml/min Gastric reflux Glaucoma Heart failure Heart murmur Hx of fracture of wrist Hyperlipidemia Hypertension Hypothyroidism Kidney failure Lumbar spinal stenosis Macular degeneration Mitral regurgitation Osteoporosis Rheumatoid arthritis Shortness of breath on exertion Sjogren syndrome with inflammatory arthritis Thyroid disease Type 2 diabetes mellitus Vertigo Home Medications ascorbic acid (vitamin C) 1,000 mg tablet,extended release (Vitamin C ER) 1,000 mg PO DAILY 06/13/22 [History Last Taken Unknown] bimatoprost 0.01 % eye drops (Lumigan) 1 drp EACH EYE QHS 06/13/22 [History Last Taken Unknown] carvedilol 12.5 mg tablet 12.5 mg PO BID 06/13/22 [History Last Taken 08/22/22 06:00] famotidine 40 mg tablet 40 mg PO DAILY 06/13/22 [History Last Taken Unknown] folic acid 1 mg tablet 1 mg PO DAILY 06/13/22 [History Last Taken Unknown] levothyroxine 25 mcg tablet 25 mcg PO DAILY 06/13/22 [History Last Taken 10/10/22] multivitamin 1 tab PO DAILY 06/13/22 [History Last Taken Unknown] Juxta Lite #2 ea 04/20/23 [Rx Last Taken Unknown] doxazosin 2 mg tablet (Cardura) 2 mg PO BID 3 months #180 tabs 08/15/22 [Rx Last Taken 08/22/22 06:00] furosemide 40 mg tablet (Lasix) 60 mg PO BID 08/15/22 [History Last Taken Unknown] icosapent ethyl 1 gram capsule (Vascepa) 2 g (2 x 1 gram) PO BID #180 caps 08/15 [Rx Last Taken Unknown] acetaminophen 325 mg capsule (Tylenol) 650 mg PO QHS 10/03/22 [History Last Taken Unknown] hydrocodone-acetaminophen 5-325mg 5mg-325mg 1 tab PO Q6H PRN pain 3 days #12 tabs 10/10/22 [Rx Last Taken Unknown] lidocaine 5 % topical patch patch topical 01/30/23 [History Last Taken Unknown] amlodipine 5 mg tablet 5 mg PO BID 3 months #180 tabs 06/05/23 [Rx Last Taken Unknown] hydralazine 50 mg tablet 50 mg PO .QID 3 months #360 tabs 06/05/23 [Rx Last Taken Unknown] gabapentin 100 mg capsule 200 mg (2 x 100 mg) PO DAILY PRN Neuropathy 3 months #90 caps 06/27/23 [Rx Last Taken Unknown] nifedipine 30 mg tablet,extended release 24 hr 30 mg PO BID 06/30/23 [History Last Taken Unknown] pantoprazole 40 mg tablet,delayed release 40 mg PO PRN Indigestion 06/30/23 [History Last Taken Unknown] Allergy/AdvReac Type Severity Reaction Status Date / Time adalimumab [From Humira] Allergy Hives Verified 06/05/23 13:37 Family History Mother Heart disease Hypertension Osteoporosis Father CVA (cerebral vascular accident) Hypertension Surgical History H/O transurethral resection of bladder tumor (TURBT) History of bladder surgery History of nephrectomy Hx of colonoscopy S/P partial hysterectomy S/P total knee arthroplasty S/P vein stripping Social History (Updated 07/16/23 @ 01:[address] Anastacia Selby MD) household members: family Smoking Status: Never smoker alcohol intake: never substance use type: does not use ROS ROS ED Review of Systems ROS Unobtainable: due to encephalopathy ENT ENT ED: Denies sore throat Cardiovascular Cardiovascular: Denies chest pain Respiratory/Chest Respiratory/Chest: Denies dyspnea Gastrointestinal Gastrointestinal: Denies diarrhea or vomiting Genitourinary Genitourinary ED: Reports urinary frequency; Denies hematuria Musculoskeletal Musculoskeletal: Denies back pain or neck pain Neurologic Neurologic: Reports headache(s) EXAM Physical Exam Const Vital Signs: 07/15/23 22:44 07/15/23 22:48 07/15/23 22:55 Temperature 99.3 F H 99.3 F H 99.3 F H Temperature Source Temporal Temporal Temporal Pulse Rate 100 100 97 Respiratory Rate 21 H 21 H 26 H Blood Pressure 235/92 H 235/92 H 221/87 H Blood Pressure Mean 139 139 131 Pulse Ox 98 98 97 Oxygen Delivery Method Room Air Room Air Room Air 07/15/23 23:39 07/15/23 23:55 07/16/23 00:00 Temperature 99.3 F H 98.5 F 98.4 F Temperature Source Temporal Oral Temporal Pulse Rate 95 96 96 Respiratory Rate 25 H 25 H 20 H Blood Pressure 230/94 H 222/84 H 218/85 H Blood Pressure Mean 139 130 129 Pulse Ox 97 97 97 Oxygen Delivery Method Room Air Room Air 07/16/23 00:42 07/16/23 01:00 Temperature 98.4 F Temperature Source Temporal Pulse Rate 95 88 Respiratory Rate 19 H 21 H Blood Pressure 211/83 H 197/77 H Blood Pressure Mean 125 117 Pulse Ox 97 96 Oxygen Delivery Method Room Air Positive well nourished and well developed General Appearance ED: well developed and NAD HEENT Reports TM's clear and nasal mucous membranes and turbinates normal HEENT Narrative: No Newberry sign. No raccoon eyes. No CSF otorhinorrhea. atraumatic Face and Sinus: Negative for facial tenderness Tympanic Membrane ED: Yes TM's clear Eyes PERRL and EOMs intact bilaterally Eyes Narrative: 1 mm bilaterally Visual Acuity: other Other Details: no entrapment or pain with extraocular movements Neck full ROM and supple General: Negative for tenderness Chest Wall inspection of chest normal and palpation of chest normal Chest: symmetrical chest wall rise; Negative for crepitus or tenderness Resp normal respiratory effort and clear to auscultation bilaterally Percussion: other equal BS bilat Cardio Rate: regular rate Rhythm: regular rhythm Heart Sounds: murmur systolic II/ crescendo-decrescendo LVOT GI normal to inspection, nondistended, normoactive bowel sounds, soft to palpation and non-tender Back/Spine normal ROM Back/Spine Narrative: Painless range of motion when assisted to sit her up and turning her head Cervical Spine: Negative for cervical spine tenderness Thoracic Spine / Upper Back: Negative for thoracic spinal tenderness Lumbar Spine / Lower Back: Negative for lumbar spinal tenderness Extremity normal to inspection and full ROM General Extremety ED: Negative for tenderness Neuro CN's II-XII intact bilaterally, moves all extremities, no focal motor deficits and no sensory deficits noted Larned Coma Scale: document GCS findings Spontaneous Obeys Commands Confused 14 Sensorium / Orientation: awake and alert Motor Exam: general weakness Skin no wounds Lesions: no lesions Rashes: no rashes MDM MDM MDM Narrative Medical decision making narrative: Patient with no focal neurologic symptoms but she is encephalopathic and has an extremely high blood pressure. In order to try to drop this around a goal of 20% reduction of the systolic blood pressure, with a goal reduction for less than systolic blood pressure of 200, Cardene was initiated and hypertension was worked up. She does not have any symptoms to suggest an aortic dissection, her thoracic and abdominal exams are very benign, she does not have any signs of injury but she did have a couple of falls, 1 week or 2 ago, and another [address] was obtained, I reviewed the images and result which I agree with, it is negative for acute abnormality/hemorrhage/skull fracture. Her urinalysis is ambiguous, testing 500 leukoesterase but very few pyuria. Culture is sent, and we will treat her empirically given that she does have urinary symptoms. She does have leukocytosis, she has renal failure but electrolytes are within normal limits and the rest of her workup is unremarkable. Chest x-ray 1 view on my interpretation shows no acute pneumonia radiology in agreement. COVID/influenza negative. Plan is for admission. Lab Data Attestation: I reviewed the patient's lab results. Labs: Laboratory Results - last 24 hr 07/15/23 07/15/23 07/16/23 22:51 23:18 00:10 WBC 15.0 H RBC 4.28 Hgb 12.2 Hct 39.7 MCV 92.8 MCH 28.5 MCHC 30.7 L RDW Std Deviation 60.3 H RDW Coeff of Wiliam 18.0 H Plt Count 175 MPV 10.8 Immature Gran % (Auto) 0.900 Neut % (Auto) 90.4 H Lymph % (Auto) 5.3 L [place] % (Auto) 3.1 Eos % (Auto) 0.1 Baso % (Auto) 0.2 Absolute Neuts (auto) 13.6 H Absolute Lymphs (auto) 0.79 L Nucleated RBC % 0 Sodium 137 Potassium 4.9 Chloride 102 Carbon Dioxide 28.0 Anion Gap 7 BUN 31 H Creatinine 4.92 H Estim Creat Clear Calc 6.22 Est GFR (MDRD) Af Amer 11 L Est GFR (MDRD) Non-Af 9 L BUN/Creatinine Ratio 6.3 L Glucose 186 H Calcium 9.6 Total Bilirubin 0.30 AST 22 ALT 13 Alkaline Phosphatase 84 Troponin I High Sens 59 H Total Protein 6.3 L Albumin 2.8 L Globulin 3.5 Albumin/Globulin Ratio 0.8 L Urine Color Yellow Urine Clarity Cloudy Urine pH 9.0 Ur Specific [place] 1.015 Urine Protein 100 H Urine Glucose (UA) 100 H Urine Ketones 15 H Urine Occult Blood 250 H Urine Nitrite Negative Urine Bilirubin Negative Urine Urobilinogen Normal Ur Leukocyte Esterase 500 H Urine RBC 25-50 SEEN Urine WBC 5-10 SEEN Ur Squamous Epith Cells 5-10 SEEN Urine Bacteria 1+ Urine Mucus 0 SEEN Ethyl Alcohol < 3.0 POC Glucose 196 H Radiography Diagnostic Testing: Clinical Impression(s) from Imaging Studies Brain CT 07/15/23 23:02 IMPRESSION: No acute intracranial abnormality. Electronically Signed: Edmar Sams DO at 0:39 EDT , Chest X-Ray 07/15/23 23:47 IMPRESSION: No evidence of acute cardiopulmonary disease. Electronically Signed: Edmar Sams DO at 0:35 EDT , Rhythm Strip Rhythm Strip: Sinus Rhythm Rate: 95 Ectopy: None EKG Initial EKG: Attestation: I personally reviewed and interpreted this EKG as follows: Interpretation: Sinus Rhythm, No Acute Injury Pattern and AV Block (1st deg) Prior EKG tracings: available for review Prior: Changed (First-degree AV block is new but rhythm, morphology, and axis are otherwise unchanged) Management Discussion w/another healthcare provider: Hospitalist Critical Care Time Critical Care Time: Yes Critical care time (excluding procedures): 30-74 minutes (33 min), Including time spent:, Discussing w/Patient &/or Family/Personal Financial Advisor, Discussing w/Consultants, Arranging Admission or Transfer and Performing Direct Patient Ca re at Bedside Discharge Plan Dx/Rx/DC Orders Clinical Impression: Acute encephalopathy, Hypertensive emergency, Acute UTI, ESRD on dialysis Disposition Disposition: Acute Care Hospital [facility]
[2023-07-15 23:10] LABS: Bedside Glucose 196 mg/dL (74-106)
[2023-07-15 23:38] LABS: Absolute Lymphocyte Count 0.79 X10^3/uL (0.83-4.51); Absolute Neutrophil Count 13.6 X10^3/uL (2.0-7.7); Basophil# 0.03 X10^3/uL; Basophil% 0.2 % (0-1); Eosinophil# 0.01 X10^3/uL; Eosinophils% 0.1 % (0-5); Hematocrit 39.7 % (37-47); Hemoglobin 12.2 g/dL (12.0-15.0); Lymphocyte # 0.79 X10^3/ul (0.83-4.51); Lymphocyte % 5.3 % (19-41); Mean Corp Hgb Conc 30.7 g/dL (32-36); Mean Corpuscular Hgb 28.5 pg (27.0-32.0); Mean Corpuscular Volume 92.8 fL (81-99); Mean Platelet Vol. 10.8 fl (6.2-12.0); Monocyte# 0.47 X10^3/uL; Monocyte% 3.1 % (0-10); NRBC Flagged by Analyzer 0 % (0-5); Neutrophil # 13.57 X10^3/uL (2.7-7.7); Neutrophil % 90.4 % (47-70); Platelet Count 175 K/mm3 (150-450); RBC Distribution Width SD 60.3 fl (35.1-43.9); Red Blood Count 4.28 M/mm3 (4.2-5.4)
[2023-07-15 23:39] VITALS: BP 230/94; PULSE 95; RESP 25; TEMP 37.4; O2SAT 97
[2023-07-15] MEDS: NICARdipine 25 MG in 0.9% Normal Saline (250mL Bag) 240 ML 50 MG CONT INF (23:39)
[2023-07-15] MEDS: 0.9% Normal Saline (500mL Bag) 500 ML 999 ML IV (23:39)
--- NOTE | 2023-07-15 23:47 | RAD_ITS ---
INDICATION: altered mental status EXAMINATION/TECHNIQUE: X-RAY - XR Chest 1 View COMPARISON: 11/20/2022. FINDINGS: LINES/DEVICES: None. LUNGS: No consolidation or evidence of an effusion. No evidence of edema or a pneumothorax. MEDIASTINUM AND CARDIOVASCULAR STRUCTURES: Cardiac silhouette is normal in size and contour. Mediastinum is unremarkable. BONES AND SOFT TISSUES: No acute abnormality. RAD/Chest 1 View (Portable) IMPRESSION: No evidence of acute cardiopulmonary disease. Electronically Signed: Edmar Sams DO at 0:35 EDT ,
[2023-07-15 23:54] LABS: Alcohol, Blood (Medical)-Serum < 3.0 mg/dL
[2023-07-15 23:55] VITALS: BP 222/84; PULSE 96; RESP 25; TEMP 36.9; O2SAT 97
[2023-07-15 23:58] LABS: ALB/GLOB Ratio 0.8 RATIO (0.9-2.4); AST(SGOT) 22 U/L (15-37); Alanine Aminotransfer ALT/SGPT 13 U/L (13-56); Albumin, Serum 2.8 g/dL (3.2-5.0); Alkaline Phosphatase 84 U/L (45-117); Anion Gap 7 (5-15); BUN 31 mg/dL (7-18); BUN/Creat Ratio 6.3 RATIO (10-20); Calcium,Total 9.6 mg/dL (8.5-10.1); Chloride 102 mmol/L (98-107); Creatinine, Serum 4.92 mg/dL (0.55-1.02); EST Glomerular Filtration Rate 9 mL/min (>60); Est Glom Filt Rate - Afr Amer 11 mL/min (>60); Estimated Creatinine Clearance 6.22 ml/min; Globulin 3.5 g/dL (2.2-4.2); Glucose 186 mg/dL (74-106); Potassium 4.9 mmol/L (3.5-5.1); Protein, Total 6.3 g/dL (6.4-8.2); Sodium Level 137 mmol/L (136-145); Troponin-I HS 59 pg/mL (3.0-54.0)
[2023-07-16] VITALS (58 sets, daily range): BP systolic 126–290; BP diastolic 52–126; PULSE 64–96; RESP 17–27; TEMP 36.2–37.6; O2SAT 93–98; BMI 20.5
[2023-07-16 00:17] LABS: Mucous, Urine 0 SEEN /hpf (<or=2+)
[2023-07-16 00:43] LABS: Color, Urine Yellow (Yellow); Glucose, Dipstick 100 mg/dl (Normal); Ketone-Dipstick 15 mg/dl (Negative); Leukocyte Esterase-Dipstick 500 /ul (Negative); Nitrite-Dipstick Negative (Negative); Occult Blood-Urine 250 /ul (Negative); Protein-Dipstick 100 mg/dl (Negative); Specific Gravity, Urine 1.015 (1.002-1.030); Urine Bilirubin Dipstick Negative (Negative); Urine Clarity Cloudy (Clear); Urine Urobilinogen Normal (Normal)
--- NOTE | 2023-07-16 00:44 | ED.RN ---
pt is confused, family not @ bedside. Unable to complete medication list.
[2023-07-16 00:56] LABS: Bacteria 1+ /hpf (None Seen); Red Blood Cells-Urine 25-50 SEEN /hpf (0-5); Squamous Epithelial Cells - UA 5-10 SEEN /hpf (5-10); White Blood Cells 5-10 SEEN /hpf (0-5)
--- NOTE | 2023-07-16 01:29 | HP.PCM.HOS_ITS ---
HPI - General General Date of Admission: 07/16/23 Date of Service: 07/16/23 Chief Complaint: Confusion, increased urinary frequency. 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 Workup in the ED included Tmax 99.3 initially with most recent repeat T98.4, heart rate 100 initially with most recent repeat 88, BP initially 235/92 with most recent repeat 197/77, respiratory rate 21, 96% on room air, CBC with WBC 15, hemoglobin 12.2, platelet 175 with left shift and lymphopenia, CMP with BUN/creatinine 31/4.92, glucose 186, troponin initial 59, urinalysis noted to be cloudy, specific gravity 1.015, urine protein 100, urine glucose 100, urine ketones 15, urine occult blood 250, negative nitrite, leukocyte Estrace 500 with urine RBCs 25-50, urine WBCs 5-10 with 1+ urine bacteria, ethyl alcohol less than 3, urine culture pending per ED, blood culture x 2 pending per ED, SARS COVID/influenza/RSV PCR negative, chest x-ray with no acute cardiopulmonary findings, CT brain with no acute intracranial findings, EKG SR without acute evidence of ischemia. In the ED patient administered IV rocephin and placed on cardene drip. [facility] Medical History Anemia Arthritis Bilateral lower extremity edema Cancer Cardiomyopathy CKD (chronic kidney disease) stage 5, GFR less than 15 ml/min Gastric reflux Glaucoma Heart failure Heart murmur Hx of fracture of wrist Hyperlipidemia Hypertension Hypothyroidism Kidney failure Lumbar spinal stenosis Macular degeneration Mitral regurgitation Osteoporosis Rheumatoid arthritis Shortness of breath on exertion Sjogren syndrome with inflammatory arthritis Thyroid disease Type 2 diabetes mellitus Vertigo Home Medications ascorbic acid (vitamin C) 1,000 mg tablet,extended release (Vitamin C ER) 1,000 mg PO DAILY 06/13/22 [History Last Taken Unknown] bimatoprost 0.01 % eye drops (Lumigan) 1 drp EACH EYE QHS 06/13/22 [History Last Taken Unknown] carvedilol 12.5 mg tablet 12.5 mg PO BID 06/13/22 [History Last Taken 08/22/22 06:00] famotidine 40 mg tablet 40 mg PO DAILY 06/13/22 [History Last Taken Unknown] folic acid 1 mg tablet 1 mg PO DAILY 06/13/22 [History Last Taken Unknown] levothyroxine 25 mcg tablet 25 mcg PO DAILY 06/13/22 [History Last Taken 10/10/22] multivitamin 1 tab PO DAILY 06/13/22 [History Last Taken Unknown] Juxta Lite #2 ea 08/15/22 [Rx Last Taken Unknown] doxazosin 2 mg tablet (Cardura) 2 mg PO BID 3 months #180 tabs 08/15/22 [Rx Last Taken 08/22/22 06:00] furosemide 40 mg tablet (Lasix) 60 mg PO BID 08/15/22 [History Last Taken Unknown] icosapent ethyl 1 gram capsule (Vascepa) 2 g (2 x 1 gram) PO BID #180 caps 08/15/22 [Rx Last Taken Unknown] acetaminophen 325 mg capsule (Tylenol) 650 mg PO QHS 10/03/22 [History Last Taken Unknown] hydrocodone-acetaminophen 5-325mg 5mg-325mg 1 tab PO Q6H PRN pain 3 days #12 tabs 10/10/22 [Rx Last Taken Unknown] lidocaine 5 % topical patch patch topical 01/30/23 [History Last Taken Unknown] amlodipine 5 mg tablet 5 mg PO BID 3 months #180 tabs 06/05/23 [Rx Last Taken U nknown] hydralazine 50 mg tablet 50 mg PO .QID 3 months #360 tabs 06/05/23 [Rx Last Taken Unknown] gabapentin 100 mg capsule 200 mg (2 x 100 mg) PO DAILY PRN Neuropathy 3 months #90 caps 06/27/23 [Rx Last Taken Unknown] nifedipine 30 mg tablet,extended release 24 hr 30 mg PO BID 06/30/23 [History La st Taken Unknown] pantoprazole 40 mg tablet,delayed release 40 mg PO PRN Indigestion 06/30/23 [History Last Taken Unknown] Allergy/AdvReac Type Severity Reaction Status Date / Time adalimumab [From Humira] Allergy Hives Verified 06/05/23 13:37 Family History Mother Heart disease Hypertension Osteoporosis Father CVA (cerebral vascular accident) Hypertension Surgical History H/O transurethral resection of bladder tumor (TURBT) History of bladder surgery History of nephrectomy Hx of colonoscopy S/P partial hysterectomy S/P total knee arthroplasty S/P vein stripping Social History household members: family Smoking Status: Never smoker alcohol intake: never substance use type: does not use ROS Review of Systems ROS Unobtainable: due to encephalopathy Vital Signs Vital Signs Vital Signs: 07/15/23 22:44 07/15/23 22:48 07/15/23 22:55 Temperature 99.3 F H 99.3 F H 99.3 F H Temperature Source Temporal Temporal Temporal Pulse Rate 100 100 97 Respiratory Rate 21 H 21 H 26 H Blood Pressure 235/92 H 235/92 H 221/87 H Blood Pressure Mean 139 139 131 Pulse Ox 98 98 97 Oxygen Delivery Method Room Air Room Air Room Air 07/15/23 23:39 07/15/23 23:55 07/16/23 00:00 Temperature 99.3 F H 98.5 F 98.4 F Temperature Source Temporal Oral Temporal Pulse Rate 95 96 96 Respiratory Rate 25 H 25 H 20 H Blood Pressure 230/94 H 222/84 H 218/85 H Blood Pressure Mean 139 130 129 Pulse Ox 97 97 97 Oxygen Delivery Method Room Air Room Air 07/16/23 00:42 07/16/23 01:00 Temperature 98.4 F Temperature Source Temporal Pulse Rate 95 88 Respiratory Rate 19 H 21 H Blood Pressure 211/83 H 197/77 H Blood Pressure Mean 125 117 Pulse Ox 97 96 Oxygen Delivery Method Room Air Weight Weight: 110 lb 3.698 oz Body Mass Index (BMI) 21.5 Physical Exam Narrative Physical Examination: General: Awakens to stimuli, not extremely alert, able to answer some questions but very lethargic and falls back asleep, seated upright in the ED bed, fatigued, ill-appearing. Skin: Normal color, normal turgor, no icterus, no cyanosis except occasional staged ecchymoses. HEENT: AT/NC, EOMI, PERRLA, dry MM, no carotid bruits or JVD noted. Lungs: Diminished, greater bases, mildly increased respiratory rate but no distress evident, no rales, ronchi or wheezing. Heart: Currently regular rate and rhythm; no gallop, rub audible, + SM. Abdomen: Soft, NTTP, ND, mildly hyperactive BS, no appreciated HSM. Extremities: No cyanosis, no clubbing, no marked peripheral edema, left upper extremity with + AVF thrill. Neurological: Awakens to stimuli, not extremely alert, able to answer some questions but very lethargic and falls back asleep, seated upright in the ED bed, fatigued, ill-appearing, cognitive function not baseline intact, pupils equally reactive to light and accommodation, cranial nerves grossly appear normal but difficult evaluation given encephalopathy, moving all 4 extremities, no focal deficits but difficult exam given encephalopathy, strength severely globally decreased. Psychiatric: Affect appears flat, lethargic, no acute evidence of depressive or anxiety feelings. Results Lab / Micro Data 07/15/23 23:18 07/15/23 23:18 Labs: Laboratory Results - last 24 hr 07/15/23 22:51: POC Glucose 196 H 07/15/23 23:18: WBC 15.0 H, RBC 4.28, Hgb 12.2, Hct 39.7, MCV 92.8, MCH 28.5, MCHC 30.7 L, RDW Std Deviation 60.3 H, RDW Coeff of Wiliam 18.0 H, Plt Count 175, MPV 10.8, Immature Gran % (Auto) 0.900, Neut % (Auto) 90.4 H, Lymph % (Auto) 5.3 L, [place] % (Auto) 3.1, Eos % (Auto) 0.1, Baso % (Auto) 0.2, Absolute Neuts (auto) 13.6 H, Absolute Lymphs (auto) 0.79 L, Nucleated RBC % 0, Sodium 137, Potassium 4.9, Chloride 102, Carbon Dioxide 28.0, Anion Gap 7, BUN 31 H, Creatinine 4.92 H , Estim Creat Clear Calc 6.22, Est GFR (MDRD) Af Amer 11 L, Est GFR (MDRD) Non- Af 9 L, BUN/Creatinine Ratio 6.3 L, Glucose 186 H, Calcium 9.6, Total Bilirubin 0.30, AST 22, ALT 13, Alkaline Phosphatase 84, Troponin I High Sens 59 H, Total Protein 6.3 L, Albumin 2.8 L, Globulin 3.5, Albumin/Globulin Ratio 0.8 L, Ethyl Alcohol < 3.0 07/16/23 00:10: Urine Color Yellow, Urine Clarity Cloudy, Urine pH 9.0, Ur Specific Milner 1.015, Urine Protein 100 H, Urine Glucose (UA) 100 H, Urine Ketones 15 H, Urine Occult Blood 250 H, Urine Nitrite Negative, Urine Bilirubin Negative, Urine Urobilinogen Normal, Ur Leukocyte Esterase 500 H, Urine RBC 25- 50 SEEN, Urine WBC 5-10 SEEN, Ur Squamous Epith Cells 5-10 SEEN, Urine Bacteria 1+, Urine Mucus 0 SEEN Micro: Microbiology 07/16/23 00:16 Mucosa - Nose SARS-CoV-2, Influenza & RSV (PCR) - Final Rhythm Strip Rhythm Strip: Sinus Rhythm Rate: 95 Ectopy: None Imaging Radiology Impression Brain CT 07/15/23 23:02 IMPRESSION: No acute intracranial abnormality. Electronically Signed: Edmar Sams DO at 0:39 EDT , Chest X-Ray 07/15/23 23:47 IMPRESSION: No evidence of acute cardiopulmonary disease. 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 #1. Acute Encephalopathy, multifactorial secondary to Acute Complicated Urinary Tract Infection and #2 as noted: Will admit to ICU, UA upon ED evaluation remarkable, pending UCx, continue IVFs, monitor I/Os, continue IV Rocephin w/ transition as able pending sensitivities and speciation. Given ICU admission per protocol will request ICU consultation. Bld cx x 2 obtained in the ED. PT/OT/CM consulted for discharge planning. #2. Acute hypertensive emergency with associated indeterminate cardiac enzyme, possibly related with underlying renal disease: EKG in ED w/ SR without acute evidence of ischemia, CXR w/ no acute cardiopulmonary findings, initial trop 53. Will maintain on Cardene drip until BP improves, will maintain on a monitored bed to be cautious, will continue to obtain serial cardiac enzymes and EKGs. Magnesium level requested. If enzymes rise notably will involve cardiology and request echocardiogram however at this time could be chronically elevated at this level given underlying renal disease. Will additionally continue patient underlying chronic home oral regimen. If BP does not improve low threshold to involve cardiology. ECHO requested. #3. HF Unclear type: No echocardiogram noted in system, unclear if preserved EF or not, will judiciously hydrate given unclear history, given hypertensive emergency as noted placed on Cardene drip, will continue concurrently patient home regimen including Coreg, Lasix, not on FLORENTINO or/ARB given likely underlying renal disease, also per current list does not appear to be on statin therapy. ECHO requested. #4. Chronic Kidney Disease Stage V/ESRD: Admission BUN/Cr 31/4.92, baseline renal function noted most recently 11/19/2022 creatinine 5.90, repeat BMP in AM, will consult Nephrology to continue her routine HD regimen. #5. Chronic anemia/AOCD: Admission hemoglobin 12.2, previous baseline had been primarily 8-9, will judiciously hydrate and repeat CBC in a.m. as certainly could be falsely elevated but last lab was remote and noted to be 11/05/2022. #6. Macular degeneration/glaucoma: Complicates presentation, maintain on fall precautions, continue patient eyedrop regimen. #7. Hypothyroidism: We will continue patient on levothyroxine regimen. #8. Bladder cancer: Status post TURBT, following with Dr. Soliman, unclear exact staging, encourage continued outpatient follow-up as previously arranged. #9. Rheumatoid arthritis/Sjogren's syndrome with inflammatory arthritis: Per current list does not appear to be on chronic regimen, encourage continued outpatient follow-up with rheumatology as previously arranged. #10. GERD: We will continue patient home PPI. #11. DVT prophylaxis: Heparin. #12. CODE status: Family had left just prior to evaluation and ED noted their intention to immediately sleep given daytime engagements. Currently will remain unverified Full Code status, but will need to be re-discussed with family 07/16/23 to verify correct code status. Charges/Coding Visit Charges Inpatient E&M: 05335 Init Hosp L3
[2023-07-16 02:03] LABS: Lactic Acid 0.6 mmol/L (0.4-1.9)
--- NOTE | 2023-07-16 02:41 | ECHOD_ITS ---
Reason For Study: HTN Procedure This was a 2D Doppler, Color Flow transthoracic echocardiogram. Myocardial strain analysis was performed in this exam to aid in the assessment of cardiac function. Exam performed portable in ICU/CCU. Left Ventricle Normal LV size. Severe concentric left ventricular hypertrophy. Left ventricular systolic function is normal. The left ventricular ejection fraction is 65 %. Stage 1 diastolic dysfunction. No regional wall motion abnormalities noted. Right Ventricle Normal RV size. Normal systolic function. Atria Normal left atrium. Normal right atrium. Bubble contrast study negative for right to left interatrial shunt. Mitral Valve Normal mitral valve. Tricuspid Valve Normal tricuspid valve. Mild tricuspid valve insufficiency. Pulmonary artery systolic pressure is 35 mmHg. Aortic Valve Trisinus/trileaflet aortic valve. Pulmonic Valve Normal pulmonic valve. Great Vessels Normal aortic root. The pulmonary artery is normal size. Inferior vena cava collapse with respiration. Pericardium/Pleural No pericardial effusion. Medication Performed a rapid injection of agitated mix of 9 cc saline and 1cc air to assess for atrial septal defect. MMode/2D Measurements & Calculations LVIDd: 3.4 cm IVSd: 1.6 cm LVOT diam: 1.8 cm LVIDs: 2.3 cm LVPWd: 1.7 cm RVDd: 2.8 cm FS: 32.3 % LVOT area: 2.7 cm2 Ao root diam: 2.3 cm LAV(MOD-bp): 36.3 ml LVAd ap4: 18.8 cm2 LAV(MOD-bp) Indexed: 25.7 ml/m2 LVLd ap4: 7.0 cm LAV(MOD-sp2): 33.9 ml EDV(MOD-sp4): 41.3 ml LAV(MOD-sp4): 38.8 ml EDV(sp4-el): 42.9 ml LVAs ap4: 9.8 cm2 LVLs ap4: 5.8 cm ESV(MOD-sp4): 15.0 ml ESV(sp4-el): 14.1 ml EF(MOD-sp4): 63.8 % EF(sp4-el): 67.0 % SV(MOD-sp4): 26.4 ml SV(sp4-el): 28.8 ml LA A4 area: 16.2 cm2 RA A4 area: 12.0 cm2 TAPSE: 2.3 cm Time Measurements MV dec time: 0.45 sec Doppler Measurements & Calculations MV E max lalit: 64.6 cm/sec Med Peak E' Lalit: 7.3 cm/sec MV V2 max: 137.5 cm/sec MV A max lalit: 107.0 cm/sec E/E' med: 8.9 MV max P.6 mmHg MV E/A: 0.60 MV V2 mean: 89.2 cm/sec MV mean P.4 mmHg MV V2 VTI: 35.0 cm MVA(VTI): 2.2 cm2 MV dec slope: 142.9 cm/sec2 Ao V2 max: 248.8 cm/sec LV V1 max: 162.4 cm/sec Ao max P.9 mmHg LV V1 max P.6 mmHg Ao V2 mean: 181.3 cm/sec LV V1 mean P.3 mmHg Ao mean P.6 mmHg LV V1 mean: 118.7 cm/sec Ao V2 VTI: 47.9 cm LV V1 VTI: 29.4 cm AV (velocity ratio): 0.61 ANNETTE(I,D): 1.6 cm2 ANNETTE(V,D): 1.7 cm2 SV(LVOT): 78.0 ml PA V2 max: 137.5 cm/sec TR max lalit: 280.3 cm/sec PA V2 mean: 96.1 cm/sec TR max P.4 mmHg ECHO/Echo Complete Interpretation Summary Normal LV size. Severe concentric left ventricular hypertrophy. Left ventricular systolic function is normal. The left ventricular ejection fraction is 65 %. Stage 1 diastolic dysfunction. Bubble contrast study negative for right to left interatrial shunt. The global longitudinal strain = -17.4 % (normal). Ordering Physician: Anastacia Selby Referring Physician: Jacky Morgan Performed By: Laura Trinidad, RDCS, RVT
[2023-07-16] MEDS: Ceftriaxone 1 GM/50 ML BAG IV ×2 (02:45→21:19)
[2023-07-16 03:01] LABS: Magnesium 2.3 mg/dL (1.6-2.6)
[2023-07-16] MEDS: 0.9% Normal Saline (1000mL) 1,000 ML 75 ML IV (03:14)
[2023-07-16] MEDS: NICARdipine 25 MG in 0.9% Normal Saline (250mL Bag) 240 ML 50 MG CONT INF (03:25)
[2023-07-16] MEDS: CHLORHEXIDINE GLUC 2% CLOTH 1 EACH TOWELETTE TOPICAL (03:30)
[2023-07-16 03:42] LABS: Troponin-I HS 49 pg/mL (3.0-54.0)
[2023-07-16 05:05] LABS: Absolute Lymphocyte Count 1.46 X10^3/uL (0.83-4.51); Absolute Neutrophil Count 11.8 X10^3/uL (2.0-7.7); Basophil# 0.03 X10^3/uL; Basophil% 0.2 % (0-1); Eosinophil# 0.01 X10^3/uL; Eosinophils% 0.1 % (0-5); Hematocrit 33.7 % (37-47); Hemoglobin 10.4 g/dL (12.0-15.0); Lymphocyte # 1.46 X10^3/ul (0.83-4.51); Lymphocyte % 10.3 % (19-41); Mean Corp Hgb Conc 30.9 g/dL (32-36); Mean Corpuscular Hgb 28.7 pg (27.0-32.0); Mean Corpuscular Volume 93.1 fL (81-99); Mean Platelet Vol. 9.8 fl (6.2-12.0); Monocyte# 0.74 X10^3/uL; Monocyte% 5.2 % (0-10); NRBC Flagged by Analyzer 0 % (0-5); Neutrophil # 11.79 X10^3/uL (2.7-7.7); Neutrophil % 83.6 % (47-70); Platelet Count 147 K/mm3 (150-450); RBC Distribution Width CV 17.9 % (11.6-14.6); RBC Distribution Width SD 61.1 fl (35.1-43.9); Red Blood Count 3.62 M/mm3 (4.2-5.4); White Blood Count 14.1 K/mm3 (4.4-11.0)
[2023-07-16] MEDS: 0.9% Saline Lock 10 ML Syringe IV (05:13)
[2023-07-16 05:22] LABS: ALB/GLOB Ratio 0.8 RATIO (0.9-2.4); AST(SGOT) 18 U/L (15-37); Alanine Aminotransfer ALT/SGPT 11 U/L (13-56); Albumin, Serum 2.4 g/dL (3.2-5.0); Alkaline Phosphatase 67 U/L (45-117); Anion Gap 7 (5-15); BUN 32 mg/dL (7-18); BUN/Creat Ratio 6.5 RATIO (10-20); Chloride 105 mmol/L (98-107); Creatinine, Serum 4.89 mg/dL (0.55-1.02); EST Glomerular Filtration Rate 9 mL/min (>60); Est Glom Filt Rate - Afr Amer 11 mL/min (>60); Estimated Creatinine Clearance 6.26 ml/min; Globulin 3.1 g/dL (2.2-4.2); Glucose 98 mg/dL (74-106); Potassium 4.6 mmol/L (3.5-5.1); Protein, Total 5.5 g/dL (6.4-8.2); Sodium Level 139 mmol/L (136-145)
[2023-07-16 05:28] LABS: Troponin-I HS 78 pg/mL (3.0-54.0)
--- NOTE | 2023-07-16 07:06 | CON.PCM.CC_ITS ---
Assessment & Plan Assessment/Plan (1) Hypertensive emergency: (2) Acute UTI: (3) ESRD on dialysis: (4) Acute encephalopathy: PLAN: Plan RECOMMENDATIONS: 1. Continue Cardene for blood pressure control and restart home antihypertensives when feasible. 2. Check ABG, TSH and ammonia. 3. Continue antimicrobials, pending finalized culture results. 4. Dialysis support per nephrology recommendations. 5. Dietary advancement as tolerated. IMPRESSIONS: 1. Acute cystitis Continue antimicrobials, pending finalized culture results. 2. Encephalopathy Most likely metabolic in etiology and related to underlying urinary tract source of infection. The patient's mental status appears to be improving with supportive care. CT head was unremarkable. Will check ABG, TSH and ammonia level. Otherwise, continue current supportive care. 3. Hypertensive emergency The patient presented with systolic blood pressures in excess of 200 mmHg. She does appear to be on a significant amount of antihypertensives at her baseline. For now, the patient will be continued on a Cardene infusion to maintain appropriate blood pressure control, with plans to reintroduce her home antihypertensive regimen, when feasible. 4. End-stage renal disease on hemodialysis Nephrology consultation is pending to assist with hemodialysis needs. 5. History of anemia of chronic disease/macular degeneration/hypothyroidism/rheumatoid arthritis/Sjogren's Complicates care, management, recovery and prognosis. Continue home medications as indicated. The patient will eventually require PT/OT evaluations. This note was generated with [employer] dictation software. It may contain incorrect words, spelling, and punctuation that were not noted in checking the note before signing. HPI Consult Data Date of Consult: 07/16/23 HPI Narrative Reason for Consultation: Altered mental status, urinary tract infection HPI Narrative: The patient is an 82-year-old female, with a history as outlined below, who presented to the emergency department on July 14 via EMS after being found by her [id number], unresponsive, while sitting on the toilet. The patient has a known history of anemia of chronic disease, rheumatoid arthritis/Sjogren's syndrome, chronic kidney disease, hypothyroidism and macular degeneration. On presentation to the emergency department, the patient was noted to be febrile with a temperature of 99.3 ?F. She was notably hypertensive with a blood pressure of 235/92 mmHg. Laboratory evaluation revealed an elevated white blood cell count of 15,000. Chemistry profile was notable for a BUN of 31 and creatinine of 4.92. Lactate was within normal limits. Troponin was mildly elevated at 59. Urine analysis was positive for leukocyte esterase and 1+ urine bacteria. CT head was unremarkable. Chest x-ray demonstrated no acute cardiopulmonary process. Influenza, RSV and COVID screens were negative. Blood and urine cultures were collected. The patient was initiated on a Cardene infusion and started on antimicrobials. She was subsequently admitted to the medical intensive care unit for further management. [facility] Medical History Anemia Arthritis Bilateral lower extremity edema Cancer Cardiomyopathy CKD (chronic kidney disease) stage 5, GFR less than 15 ml/min Gastric reflux Glaucoma Heart failure Heart murmur Hx of fracture of wrist Hyperlipidemia Hypertension Hypothyroidism Kidney failure Lumbar spinal stenosis Macular degeneration Mitral regurgitation Osteoporosis Rheumatoid arthritis Shortness of breath on exertion Sjogren syndrome with inflammatory arthritis Thyroid disease Type 2 diabetes mellitus Vertigo Home Medications ascorbic acid (vitamin C) 1,000 mg tablet,extended release (Vitamin C ER) 1,000 mg PO DAILY 06/13/22 [History Last Taken Unknown] bimatoprost 0.01 % eye drops (Lumigan) 1 drp EACH EYE QHS 06/13/22 [History Last Taken Unknown] carvedilol 12.5 mg tablet 12.5 mg PO BID 06/13/22 [History Last Taken 08/22/22 06:00] famotidine 40 mg tablet 40 mg PO DAILY 06/13/22 [History Last Taken Unknown] folic acid 1 mg tablet 1 mg PO DAILY 06/13/22 [History Last Taken Unknown] levothyroxine 25 mcg tablet 25 mcg PO DAILY 06/13/22 [History Last Taken 10/10/22] multivitamin 1 tab PO DAILY 06/13/22 [History Last Taken Unknown] Juxta Lite #2 ea 08/15/22 [Rx Last Taken Unknown] doxazosin 2 mg tablet (Cardura) 2 mg PO BID 3 months #180 tabs 08/15/22 [Rx Last Taken 08/22/22 06:00] furosemide 40 mg tablet (Lasix) 60 mg PO BID 08/15/22 [History Last Taken Unknown] icosapent ethyl 1 gram capsule (Vascepa) 2 g (2 x 1 gram) PO BID #180 caps 08/15/22 [Rx Last Taken Unknown] acetaminophen 325 mg capsule (Tylenol) 650 mg PO QHS 10/03/22 [History Last Taken Unknown] hydrocodone-acetaminophen 5-325mg 5mg-325mg 1 tab PO Q6H PRN pain 3 days #12 tabs 10/10/22 [Rx Last Taken Unknown] lidocaine 5 % topical patch patch topical 01/30/23 [History Last Taken Unknown] amlodipine 5 mg tablet 5 mg PO BID 3 months #180 tabs 06/05/23 [Rx Last Taken Unknown] hydralazine 50 mg tablet 50 mg PO .QID 3 months #360 tabs 06/05/23 [Rx Last Taken Unknown] gabapentin 100 mg capsule 200 mg (2 x 100 mg) PO DAILY PRN Neuropathy 3 months #90 caps 06/27/23 [Rx Last Taken Unknown] nifedipine 30 mg tablet,extended release 24 hr 30 mg PO BID 06/30/23 [History Last Taken Unknown] pantoprazole 40 mg tablet,delayed release 40 mg PO PRN Indigestion 06/30/23 [History Last Taken Unknown] Allergy/AdvReac Type Severity Reaction Status Date / Time adalimumab [From Humira] Allergy Hives Verified 06/05/23 13:37 Family History Mother Heart disease Hypertension Osteoporosis Father CVA (cerebral vascular accident) Hypertension Surgical History H/O transurethral resection of bladder tumor (TURBT) History of bladder surgery History of nephrectomy Hx of colonoscopy S/P partial hysterectomy S/P total knee arthroplasty S/P vein stripping Social History household members: family Smoking Status: Never smoker alcohol intake: never substance use type: does not use ROS Review of Systems ROS Unobtainable: due to mental status Physical Exam Const Constitutional Narrative: Somnolent and confused. Arouses to verbal stimulation but then falls quickly back to sleep. General Appearance: ill appearing HEENT normocephalic and head/scalp atraumatic Eyes PERRL, EOMs intact bilaterally and conjunctivae normal Neck supple General: trachea midline Chest inspection of chest normal Resp normal respiratory effort Auscultation: Negative for rales, rhonchi or wheezes Cardio regular rate and regular rhythm Heart Sounds: murmur GI normal to inspection, nondistended, normoactive bowel sounds Extremity no clubbing, cyanosis or edema Skin no rashes or lesions noted Neuro CN's II-XII intact bilaterally and no focal motor deficits Psych Mood & Affect: flat affect Lab / Micro Data 07/16/23 04:50 07/16/23 04:50 Labs: Laboratory Results - last 24 hr 07/15/23 22:51: POC Glucose 196 H 07/15/23 23:18: WBC 15.0 H, RBC 4.28, Hgb 12.2, Hct 39.7, MCV 92.8, MCH 28.5, MCHC 30.7 L, RDW Std Deviation 60.3 H, RDW Coeff of Wiliam 18.0 H, Plt Count 175, MPV 10.8, Immature Gran % (Auto) 0.900, Neut % (Auto) 90.4 H, Lymph % (Auto) 5.3 L, [place] % (Auto) 3.1, Eos % (Auto) 0.1, Baso % (Auto) 0.2, Absolute Neuts (auto) 13.6 H, Absolute Lymphs (auto) 0.79 L, Nucleated RBC % 0, Sodium 137, Potassium 4.9, Chloride 102, Carbon Dioxide 28.0, Anion Gap 7, BUN 31 H, Creatinine 4.92 H , Estim Creat Clear Calc 6.22, Est GFR (MDRD) Af Amer 11 L, Est GFR (MDRD) Non- Af 9 L, BUN/Creatinine Ratio 6.3 L, Glucose 186 H, Calcium 9.6, Total Bilirubin 0.30, AST 22, ALT 13, Alkaline Phosphatase 84, Troponin I High Sens 59 H, Total Protein 6.3 L, Albumin 2.8 L, Globulin 3.5, Albumin/Globulin Ratio 0.8 L, Ethyl Alcohol < 3.0 07/16/23 00:10: Urine Color Yellow, Urine Clarity Cloudy, Urine pH 9.0, Ur Specific [place] 1.015, Urine Protein 100 H, Urine Glucose (UA) 100 H, Urine Ketones 15 H, Urine Occult Blood 250 H, Urine Nitrite Negative, Urine Bilirubin Negative, Urine Urobilinogen Normal, Ur Leukocyte Esterase 500 H, Urine RBC 25- 50 SEEN, Urine WBC 5-10 SEEN, Ur Squamous Epith Cells 5-10 SEEN, Urine Bacteria 1+, Urine Mucus 0 SEEN 03/20/24 01:31: Lactic Acid 0.6, Magnesium 2.3, Troponin I High Sens 49 07/16/23 04:50: WBC 14.1 H, RBC 3.62 L, Hgb 10.4 L, Hct 33.7 L, MCV 93.1, MCH 28.7, MCHC 30.9 L, RDW Std Deviation 61.1 H, RDW Coeff of Wiliam 17.9 H, Plt Count 147 L, MPV 9.8, Immature Gran % (Auto) 0.600, Neut % (Auto) 83.6 H, Lymph % (Auto) 10.3 L, [place] % (Auto) 5.2, Eos % (Auto) 0.1, Baso % (Auto) 0.2, Absolute Neuts (auto) 11.8 H, Absolute Lymphs (auto) 1.46, Nucleated RBC % 0, Sodium 139, Potassium 4.6, Chloride 105, Carbon Dioxide 27.0, Anion Gap 7, BUN 32 H, Creatinine 4.89 H, Estim Creat Clear Calc 6.26, Est GFR (MDRD) Af Amer 11 L, Est GFR (MDRD) Non-Af 9 L, BUN/Creatinine Ratio 6.5 L, Glucose 98, Calcium 9.0, Total Bilirubin 0.30, AST 18, ALT 11 L, Alkaline Phosphatase 67, Troponin I High Sens 78 H, Total Protein 5.5 L, Albumin 2.4 L, Globulin 3.1, Albumin/Globulin Ratio 0.8 L Micro: Microbiology 07/16/23 00:16 Mucosa - Nose SARS-CoV-2, Influenza & RSV (PCR) - Final Rhythm Strip Rhythm Strip: Sinus Rhythm Rate: 95 Ectopy: None Imaging Radiology Impression Brain CT 07/15/23 23:02 IMPRESSION: No acute intracranial abnormality. Electronically Signed: Edmar Sams DO at 0:39 EDT , Chest X-Ray 07/15/23 23:47 IMPRESSION: No evidence of acute cardiopulmonary disease. Electronically Signed: Edmar Sams DO at 0:35 EDT , Charges/Coding Visit Charges Inpatient E&M: 54683 Init Hosp L3
[2023-07-16 07:22] LABS: Base Excess 1 mmol/L (-2 to +2); Bicarbonate 25.6 mmol/L (22-26); Blood Gas Specimen Type ART; Mode Not entered; O2 Delivery Device Room Air; PO2 68 mmHG (75-100); SITE Not entered; SO2 94 % (95-99); Total Carbon Dioxide 27 mmol/L; pCO2 38.1 mmHg (35-45); pH 7.44 (7.35-7.45)
[2023-07-16] MEDS: 0.9% Normal Saline 1,000 ML IV.SOLN. 1000 ML OPERA.SITE (08:22)
[2023-07-16] MEDS: PureFlow B 2K Dialysis Soln 1 BAG 6 BAG PF (08:23)
[2023-07-16 08:26] LABS: Ammonia < 10.0 umol/L (11-32)
[2023-07-16] MEDS: NICARdipine 25 MG in 0.9% Normal Saline (250mL Bag) 240 ML 75 MG CONT INF ×2 (08:41→11:26)
--- NOTE | 2023-07-16 09:52 | CASEMGMT ---
RN CM Assessment Face to Face with patient for initial transition planning/care coordination assessment. RN CM introduced self and role at [facility], pt voices understanding. Pt is A&Ox3 and is resting comfortably in bed and is calm. Pt is currently receiving dialysis. Pt is able to answer most of this RN CM questions appropriately but is slow to respond and appears somewhat forgetful. Pt states that it is OK to call pt son regarding this RN CM questions. Pt son (Jabier) called at this time and is agreeable to answering this RN CM questions for initial assessment. Care providers, pharmacy, and demographics verified. Admitting dx: Hypertensive Emergency, UTI LACE Strata: 2 PCP: Cathy Specialists: Dr. Milagros Cason (Nephro in [place]), Janny HD: Pt attends [facility] M[facility]. Pt uses [facility] for transport. Preferred Pharmacy: [facility] [place] Insurance: [facility] A/B, [facility] SUPP Prescription Benefit: Yes LNOK: Jabier Durand (son), Marni Ladarius (DIL) Living Arrangements: Pt lives with her , son, and DIL in a 2 story home with a BM garage. Pt son states the pt requires help at home. Pt son states that there are 12 steps to enter the home but the pt and pt utilize a stair lift from the BM garage. Pt son states that the pt has a FFSU once to the main floor. ADLs/IADLs: Pt requires assistance with ADLs Transportation: [facility] DME: Stair lift. Walk in shower with GB and seat. Walker. BP Cuff. P Ox. HHC/SNF: Denies SNF history. Pt son states that the pt and pt are active with [facility] [employer] [facility]. Pt son states that they come M-F. Plan: TBD. PT eval pending. CM to follow to see what the pt qualifies for regarding safe DC from [facility]. Constanza Lyon RN, CM
--- NOTE | 2023-07-16 10:24 | PCM.CONS.R ---
Assessment & Plan Assessment/Plan (1) ESRD on dialysis: (2) Hypertensive emergency: (3) Acute encephalopathy: (4) Acute UTI: PLAN: Plan This is an 82-year-old female with past medical history significant for ESRD on hemodialysis on a Friday schedule last dialyzed Friday who was admitted to the hospital after presenting with confusion, also noted to be significantly hypertensive and started on Cardene drip. Brain CT did not show any acute intracranial abnormality. We will continue dialysis, plan for dialysis today over 3 hours and attempting around 2 L fluid removal as patient/blood pressure tolerates. Per patient's outpatient chronic hemodialysis orders, patient is possibly under her dry weight. Patient likely will have a new lowered dry weight by time of hospital discharge. Reviewed chest x-ray which did not show any evidence of acute cardiopulmonary disease. Blood pressures have improved. Echo pending (no echo in system). Patient is on IV fluids, she ate breakfast this morning, will stop IVF. Patient is on IV antibiotics for probable UTI, urine culture pending. Patient has a history of anemia of chronic disease, current hemoglobin 10.4. Will monitor hemoglobin trends. No need for CIERA at this time. Further orders forthcoming as hospitalization evolves, thank you for allowing us to participate in the care of Ms. Estrella. HPI Consult Data Date of Consult: 07/16/23 HPI Narrative HPI Narrative: MONA ESTRELLA, is a 82 F with past medical history significant for ESRD on hemodialysis at [facility] followed by Dr. Reyes on a Friday schedule, anemia of chronic disease, rheumatoid arthritis/Sjogren's syndrome with inflammatory arthritis, macular degeneration/glaucoma, hypertension, history of bladder cancer who presented to the emergency room late last night with sudden onset of confusion and decreased responsiveness. Family was with patient at time of ER evaluation. Initially the emergency room patient was noted to be significantly hypertensive with blood pressure 235/92, her white count was 15, initial troponin 59, urinalysis concerning for UTI, patient was started on Cardene drip and admitted to ICU for further evaluation and treatment. Nephrology consulted as patient has history of ESRD, for hemodialysis management. Patient was seen on hemodialysis this morning, she is alert and oriented. Patient reports last hemodialysis was Friday at her kidney center. She denies any recent cramping with dialysis. [facility] Medical History Anemia Arthritis Bilateral lower extremity edema Cancer Cardiomyopathy CKD (chronic kidney disease) stage 5, GFR less than 15 ml/min Gastric reflux Glaucoma Heart failure Heart murmur Hx of fracture of wrist Hyperlipidemia Hypertension Hypothyroidism Kidney failure Lumbar spinal stenosis Macular degeneration Mitral regurgitation Osteoporosis Rheumatoid arthritis Shortness of breath on exertion Sjogren syndrome with inflammatory arthritis Thyroid disease Type 2 diabetes mellitus Vertigo Home Medications ascorbic acid (vitamin C) 1,000 mg tablet,extended release (Vitamin C ER) 1,000 mg PO DAILY 06/13/22 [History Last Taken Unknown] bimatoprost 0.01 % eye drops (Lumigan) 1 drp EACH EYE QHS 06/13/22 [History Last Taken Unknown] carvedilol 12.5 mg tablet 12.5 mg PO BID BLOOD PRESSURE 06/13/22 [History Last Taken 08/22/22 06:00] famotidine 40 mg tablet 40 mg PO DAILY 06/13/22 [History Last Taken Unknown] folic acid 1 mg tablet 1 mg PO DAILY 06/13/22 [History Last Taken Unknown] levothyroxine 25 mcg tablet 25 mcg PO DAILY 06/13/22 [History Last Taken 10/10/22] multivitamin 1 tab PO DAILY 06/13/22 [History Last Taken Unknown] Juxta Lite #2 ea 08/15/22 [Rx Last Taken Unknown] doxazosin 2 mg tablet (Cardura) 2 mg PO BID 3 months #180 tabs 08/15/22 [Rx Last Taken 08/22/22 06:00] furosemide 40 mg tablet (Lasix) 60 mg PO BID 08/15/22 [History Last Taken Unknown] icosapent ethyl 1 gram capsule (Vascepa) 2 g (2 x 1 gram) PO BID #180 caps 08/15/22 [Rx Last Taken Unknown] acetaminophen 325 mg capsule (Tylenol) 650 mg PO QHS 10/03/22 [History Last Taken Unknown] hydrocodone-acetaminophen 5-325mg 5mg-325mg 1 tab PO Q6H PRN pain 3 days #12 tabs 10/10/22 [Rx Last Taken Unknown] lidocaine 5 % topical patch patch topical 01/30/23 [History Last Taken Unknown] hydralazine 50 mg tablet 50 mg PO .QID 3 months #360 tabs 06/05/23 [Rx Last Taken Unknown] gabapentin 100 mg capsule 200 mg (2 x 100 mg) PO DAILY PRN Neuropathy 3 months #90 caps 06/27/23 [Rx Last Taken Unknown] pantoprazole 40 mg tablet,delayed release 40 mg PO PRN Indigestion 06/30/23 [History Last Taken Unknown] amlodipine 10 mg tablet 10 mg PO DAILY BLOOD PRESSURE 07/16/23 [History Last Taken Unknown] nifedipine 60 mg tablet,extended release 60 mg PO BID BLOOD PRESSURE 07/16/23 [History Last Taken Unknown] Allergy/AdvReac Type Severity Reaction Status Date / Time adalimumab [From Humira] Allergy Hives Verified 06/05/23 13:37 Family History Mother Heart disease Hypertension Osteoporosis Father CVA (cerebral vascular accident) Hypertension Surgical History H/O transurethral resection of bladder tumor (TURBT) History of bladder surgery History of nephrectomy Hx of colonoscopy S/P partial hysterectomy S/P total knee arthroplasty S/P vein stripping Social History household members: family Smoking Status: Never smoker alcohol intake: never substance use type: does not use ROS ROS Narrative As in HPI and past medical history Physical Exam Narrative Alert and orient x 3, no apparent distress S1, S2, RRR Lung sounds clear anteriorly and posteriorly. No wheezes, rhonchi or rales noted Abdomen soft, nontender No edema AV fistula accessed for hemodialysis Lab / Micro Data 07/16/23 04:50 07/16/23 04:50 Labs: Laboratory Results - last 24 hr 07/15/23 22:51: POC Glucose 196 H 07/15/23 23:18: WBC 15.0 H, RBC 4.28, Hgb 12.2, Hct 39.7, MCV 92.8, MCH 28.5, MCHC 30.7 L, RDW Std Deviation 60.3 H, RDW Coeff of Wiliam 18.0 H, Plt Count 175, MPV 10.8, Immature Gran % (Auto) 0.900, Neut % (Auto) 90.4 H, Lymph % (Auto) 5.3 L, [place] % (Auto) 3.1, Eos % (Auto) 0.1, Baso % (Auto) 0.2, Absolute Neuts (auto) 13.6 H, Absolute Lymphs (auto) 0.79 L, Nucleated RBC % 0, Sodium 137, Potassium 4.9, Chloride 102, Carbon Dioxide 28.0, Anion Gap 7, BUN 31 H, Creatinine 4.92 H, Estim Creat Clear Calc 6.22, Est GFR (MDRD) Af Amer 11 L, Est GFR (MDRD) Non-Af 9 L, BUN/Creatinine Ratio 6.3 L, Glucose 186 H, Calcium 9.6, Total Bilirubin 0.30, AST 22, ALT 13, Alkaline Phosphatase 84, Troponin I High Sens 59 H, Total Protein 6.3 L, Albumin 2.8 L, Globulin 3.5, Albumin/Globulin Ratio 0.8 L, Ethyl Alcohol < 3.0 07/16/23 00:10: Urine Color Yellow, Urine Clarity Cloudy, Urine pH 9.0, Ur Specific [place] 1.015, Urine Protein 100 H, Urine Glucose (UA) 100 H, Urine Ketones 15 H, Urine Occult Blood 250 H, Urine Nitrite Negative, Urine Bilirubin Negative, Urine Urobilinogen Normal, Ur Leukocyte Esterase 500 H, Urine RBC 25-50 SEEN, Urine WBC 5-10 SEEN, Ur Squamous Epith Cells 5-10 SEEN, Urine Bacteria 1+, Urine Mucus 0 SEEN 07/16/23 01:31: Lactic Acid 0.6, Magnesium 2.3, Troponin I High Sens 49 07/16/23 04:50: WBC 14.1 H, RBC 3.62 L, Hgb 10.4 L, Hct 33.7 L, MCV 93.1, MCH 28.7, MCHC 30.9 L, RDW Std Deviation 61.1 H, RDW Coeff of Wiliam 17.9 H, Plt Count 147 L, MPV 9.8, Immature Gran % (Auto) 0.600, Neut % (Auto) 83.6 H, Lymph % (Auto) 10.3 L, [place] % (Auto) 5.2, Eos % (Auto) 0.1, Baso % (Auto) 0.2, Absolute Neuts (auto) 11.8 H, Absolute Lymphs (auto) 1.46, Nucleated RBC % 0, Sodium 139, Potassium 4.6, Chloride 105, Carbon Dioxide 27.0, Anion Gap 7, BUN 32 H, Creatinine 4.89 H, Estim Creat Clear Calc 6.26, Est GFR (MDRD) Af Amer 11 L, Est GFR (MDRD) Non-Af 9 L, BUN/Creatinine Ratio 6.5 L, Glucose 98, Calcium 9.0, Total Bilirubin 0.30, AST 18, ALT 11 L, Alkaline Phosphatase 67, Troponin I High Sens 78 H, Total Protein 5.5 L, Albumin 2.4 L, Globulin 3.1, Albumin/Globulin Ratio 0.8 L, TSH 0.90 07/16/23 07:30: Ammonia < 10.0 L Micro: Microbiology 07/16/23 00:16 Mucosa - Nose SARS-CoV-2, Influenza & RSV (PCR) - Final ABG Data ABG results: ABG 07/16/23 07:19 Specimen Type ART Sample Site Not entered pH 7.44 Bicarbonate Actual 25.6 Total CO2 27 Base Excess 1 O2 Saturation 94 L ABG pCO2 38.1 ABG pO2 68 L O2 Delivery Device Room Air Vent Mode Not entered Rhythm Strip Rhythm Strip: Sinus Rhythm Rate: 95 Ectopy: None Imaging Radiology Impression Brain CT 07/15/23 23:02 IMPRESSION: No acute intracranial abnormality. Electronically Signed: Edmar Sams DO at 0:39 EDT , Chest X-Ray 07/15/23 23:47 IMPRESSION: No evidence of acute cardiopulmonary disease. Electronically Signed: Edmar Sams DO at 0:35 EDT ,
[2023-07-16] MEDS: NIFEdipine 60 MG Tablet PO ×2 (11:22→21:19)
[2023-07-16] MEDS: Folic Acid 1 MG Tablet PO (11:23)
[2023-07-16] MEDS: Multivitamins,Therapeutic Tablet 1 TABLET PO (11:23)
[2023-07-16] MEDS: Doxazosin 1 MG Tablet 2 MG PO ×2 (11:23→21:18)
[2023-07-16] MEDS: Pantoprazole Sodium 40 MG Tablet PO (11:23)
[2023-07-16] MEDS: hydrALAZINE 50 MG Tablet PO ×3 (11:24→21:18)
[2023-07-16] MEDS: Carvedilol 12.5 MG Tablet PO ×2 (11:24→18:02)
[2023-07-16] MEDS: Heparin Injection (Vial) 5,000 UNIT/ML VIAL 5000 UNIT SC ×2 (11:25→21:19)
[2023-07-16] MEDS: Furosemide 20 MG Tablet 60 MG PO ×2 (11:26→18:01)
[2023-07-16 12:12] LABS: Bedside Glucose 121 mg/dL (74-106)
--- NOTE | 2023-07-16 15:27 | PN_ITS ---
Subjective Subjective Patient seen and examined. She had no active complaints. She was admitted with a complaint of altered mental status. She was found to have a UTI and was in hypertensive emergency. She is on nicardipine drip and is on IV antibiotics. She had no complaints this morning. Review of systems is otherwise negative. Objective Data Objective Data Vital Signs: Vital Signs Temp Pulse Resp BP Pulse Ox O2 Del Method 97.1 F L 64 20 H 146/54 H 96 Room Air 07/16/23 14:00 07/16/23 14:00 07/16/23 14:00 07/16/23 14:00 07/16/23 14:00 07/16/23 14:00 Oxygen Delivery Method Room Air Weight: 104 lb 7.986 oz Body Mass Index (BMI) 20.5 Intake & Output: Intake and Output for Last 24 Hours 07/14/23 07/15/23 07/16/23 23:59 23:59 23:59 Intake Total 2316.25 / 2316.25 Output Total 1180 / 1180 Balance 1136.25 / 1136.25 Lab / Micro Data 07/16/23 04:50 07/16/23 04:50 Labs: Laboratory Results - last 24 hr 07/15/23 22:51: POC Glucose 196 H 07/15/23 23:18: WBC 15.0 H, RBC 4.28, Hgb 12.2, Hct 39.7, MCV 92.8, MCH 28.5, MCHC 30.7 L, RDW Std Deviation 60.3 H, RDW Coeff of Wiliam 18.0 H, Plt Count 175, MPV 10.8, Immature Gran % (Auto) 0.900, Neut % (Auto) 90.4 H, Lymph % (Auto) 5.3 L, [place] % (Auto) 3.1, Eos % (Auto) 0.1, Baso % (Auto) 0.2, Absolute Neuts (auto) 13.6 H, Absolute Lymphs (auto) 0.79 L, Nucleated RBC % 0, Sodium 137, Potassium 4.9, Chloride 102, Carbon Dioxide 28.0, Anion Gap 7, BUN 31 H, Creatinine 4.92 H , Estim Creat Clear Calc 6.22, Est GFR (MDRD) Af Amer 11 L, Est GFR (MDRD) Non- Af 9 L, BUN/Creatinine Ratio 6.3 L, Glucose 186 H, Calcium 9.6, Total Bilirubin 0.30, AST 22, ALT 13, Alkaline Phosphatase 84, Troponin I High Sens 59 H, Total Protein 6.3 L, Albumin 2.8 L, Globulin 3.5, Albumin/Globulin Ratio 0.8 L, Ethyl Alcohol < 3.0 07/16/23 00:10: Urine Color Yellow, Urine Clarity Cloudy, Urine pH 9.0, Ur Specific [place] 1.015, Urine Protein 100 H, Urine Glucose (UA) 100 H, Urine Ketones 15 H, Urine Occult Blood 250 H, Urine Nitrite Negative, Urine Bilirubin Negative, Urine Urobilinogen Normal, Ur Leukocyte Esterase 500 H, Urine RBC 25-5 0 SEEN, Urine WBC 5-10 SEEN, Ur Squamous Epith Cells 5-10 SEEN, Urine Bacteria 1+, Urine Mucus 0 SEEN 07/16/23 01:31: Lactic Acid 0.6, Magnesium 2.3, Troponin I High Sens 49 07/16/23 04:50: WBC 14.1 H, RBC 3.62 L, Hgb 10.4 L, Hct 33.7 L, MCV 93.1, MCH 28.7, MCHC 30.9 L, RDW Std Deviation 61.1 H, RDW Coeff of Wiliam 17.9 H, Plt Count 147 L, MPV 9.8, Immature Gran % (Auto) 0.600, Neut % (Auto) 83.6 H, Lymph % (Auto) 10.3 L, [place] % (Auto) 5.2, Eos % (Auto) 0.1, Baso % (Auto) 0.2, Absolute Neuts (auto) 11.8 H, Absolute Lymphs (auto) 1.46, Nucleated RBC % 0, Sodium 139, Potassium 4.6, Chloride 105, Carbon Dioxide 27.0, Anion Gap 7, BUN 32 H, Creatinine 4.89 H, Estim Creat Clear Calc 6.26, Est GFR (MDRD) Af Amer 11 L, Est GFR (MDRD) Non-Af 9 L, BUN/Creatinine Ratio 6.5 L, Glucose 98, Calcium 9.0, Total Bilirubin 0.30, AST 18, ALT 11 L, Alkaline Phosphatase 67, Troponin I High Sens 78 H, Total Protein 5.5 L, Albumin 2.4 L, Globulin 3.1, Albumin/Globulin Ratio 0.8 L, TSH 0.90 07/16/23 07:30: Ammonia < 10.0 L 07/16/23 11:54: POC Glucose 121 H Micro: Microbiology 07/16/23 00:16 Mucosa - Nose SARS-CoV-2, Influenza & RSV (PCR) - Final ABG Data ABG results: ABG 07/16/23 07:19 Specimen Type ART Sample Site Not entered pH 7.44 Bicarbonate Actual 25.6 Total CO2 27 Base Excess 1 O2 Saturation 94 L ABG pCO2 38.1 ABG pO2 68 L O2 Delivery Device Room Air Vent Mode Not entered Radiography Diagnostic Testing: Radiology Impression Brain CT 07/15/23 23:02 IMPRESSION: No acute intracranial abnormality. Electronically Signed: Edmar Sams DO at 0:39 EDT , Chest X-Ray 07/15/23 23:47 IMPRESSION: No evidence of acute cardiopulmonary disease. Electronically Signed: Edmar Sams DO at 0:35 EDT , Rhythm Strip Rhythm Strip: Sinus Rhythm Rate: 95 Ectopy: None Physical Exam Const alert, oriented x3, no apparent distress and well nourished General Appearance: cooperative and well developed HEENT normocephalic, moist oral mucous membranes and oropharynx normal Eyes PERRL and EOMs intact bilaterally Neck no lymphadenopathy and supple Lymph Lymphatic: no lymphadenopathy noted and no lymphedema noted Resp normal respiratory effort, normal air movement and clear to auscultation bilaterally Cardio regular rate, regular rhythm, S1 normal heart sound, S2 normal heart sound and no murmurs GI normal to inspection, nondistended, normoactive bowel sounds, soft to palpation, non-tender and non-distended Extremity normal capillary refill, no clubbing, cyanosis or edema and no calf tenderness General Extremity: no tenderness to palpation of joints or extremities Skin General Skin Exam: no breakdown Neuro CN's II-XII intact bilaterally, no focal motor deficits, no sensory deficits noted and deep tendon reflexes 2+ bilaterally Motor Exam: strength 5/5 throughout and general weakness Psych thought process normal and cooperative Appearance: appropriate Assessment & Plan Assessment/Plan (1) Acute UTI: (2) ESRD on dialysis: (3) Hypertensive emergency: PLAN: Plan #Acute encephalopathy due to UTI and hypertensive emergency * mentation is now clear. She is on nicardipine drip * on iV ceftriaxone * urine cultures pending * #UTI: as above #Hypertensive emergency: BP was >200 systolic. On nicardipine drip. Will wean off as tolerated #ESRD: on hemodialysis MWF. Nephrology consuled. She had dialysis today # Hypothyroidism: On Synthroid #Rheumatoid arthritis: #Sjogren's disease: #History of bladder cancer: S/p transurethral resection of the bladder tumor. Follow-up with Dr. Carballo on outpatient basis GERD: On PPI #DVT prophylaxis: Heparin Charges/Coding Visit Charges Inpatient E&M: 70080 Subs Hosp L2
[2023-07-16 16:53] LABS: Bedside Glucose 143 mg/dL (74-106)
[2023-07-16] MEDS: Acetaminophen 325 MG Tablet 650 MG PO (21:17)
[2023-07-16] MEDS: Menthol/Lanolin/Calamine/Znox 113 GM Tube 1 APPLIC TOPICAL (21:18)
[2023-07-16] MEDS: Latanoprost 0.005% 1 Bottle 1 DRP EACH EYE (21:19)
[2023-07-16 21:48] LABS: Bedside Glucose 113 mg/dL (74-106)
[2023-07-17] VITALS (20 sets, daily range): BP systolic 126–174; BP diastolic 51–100; PULSE 70–96; RESP 16–23; TEMP 36.6–37.2; O2SAT 94–99; BMI 20.8
[2023-07-17] MEDS: Levothyroxine 25 MCG TABLET PO (06:05)
[2023-07-17] MEDS: 0.9% Saline Lock 10 ML Syringe IV ×2 (06:06→20:31)
--- NOTE | 2023-07-17 07:05 | PN.CC_ITS ---
Assessment & Plan Assessment/Plan (1) Hypertensive emergency: (2) Acute UTI: (3) ESRD on dialysis: (4) Acute encephalopathy: PLAN: Plan RECOMMENDATIONS: 1. Continue home antihypertensive regimen. 2. Continue antimicrobials, pending finalized culture results. 3. Dialysis support per nephrology recommendations. 4. Encourage incentive spirometer use and mobilize patient as tolerated. 5. The patient is medically stable for transfer out of the intensive care unit. 6. Will sign off from a critical care perspective. Please call with any additional questions. IMPRESSIONS: 1. Acute cystitis Continue antimicrobials, pending finalized culture results. 2. Encephalopathy Resolved. Most likely metabolic in etiology and related to underlying urinary tract source of infection. 3. Hypertensive emergency Resolved. The patient presented with systolic blood pressures in excess of 200 mmHg. Although the patient initially required nicardipine, her blood pressures have since normalized after receiving dialysis and being restarted on her home antihypertensive regimen. 4. End-stage renal disease on hemodialysis Nephrology is following to assist with hemodialysis needs. 5. History of anemia of chronic disease/macular degen eration/hypothyroidism/rheumatoid arthritis/Sjogren's Complicates care, management, recovery and prognosis. Continue home medications as indicated. Physical therapy to work with the patient. This note was generated with i[employer] dictation software. It may contain incorrect words, spelling, and punctuation that were not noted in checking the note before signing. Subjective Subjective The patient was seen and examined at the bedside this morning. Events from the last 24 hours have been reviewed. The patient is currently afebrile, hemodynamically stable and maintaining appropriate oxygen saturations on room air. The patient's blood pressures have normalized and she has been weaned from Cardene. She tolerated dialysis yesterday. The patient has no specific complaints this morning. Objective Data Objective Data The patient's most recent lab work, culture data and imaging studies have all been personally reviewed. Blood and urine cultures are pending. Vital Signs: Vital Signs Temp Pulse Resp BP Pulse Ox O2 Del Method 98.7 F 74 21 H 133/54 H 97 Room Air 07/17/23 06:00 07/17/23 07:00 07/17/23 07:00 07/17/23 07:00 07/17/23 07:00 07/17/23 07:00 Oxygen Delivery Method Room Air Weight: 106 lb 4.205 oz Body Mass Index (BMI) 20.8 Intake & Output: Intake and Output for Last 24 Hours 07/15/23 07/16/23 07/17/23 23:59 23:59 23:59 Intake Total 3136.25 / 3136.25 50 / 50 Output Total 1180 / 1180 Balance 1955.25 / 1955. 50 / 50 Lab / Micro Data Attestation: I reviewed the patient's lab results. 07/16/23 04:50 07/16/23 04:50 Labs: Laboratory Results - last 24 hr 07/16/23 04:50: TSH 0.90 07/16/23 07:30: Ammonia < 10.0 L 07/16/23 11:54: POC Glucose 121 H 07/16/23 16:35: POC Glucose 143 H 07/16/23 21:31: POC Glucose 113 H Micro: Microbiology 07/16/23 00:16 Mucosa - Nose SARS-CoV-2, Influenza & RSV (PCR) - Final ABG Data ABG results: ABG 07/16/23 07:19 Specimen Type ART Sample Site Not entered pH 7.44 Bicarbonate Actual 25.6 Total CO2 27 Base Excess 1 O2 Saturation 94 L ABG pCO2 38.1 ABG pO2 68 L O2 Delivery Device Room Air Vent Mode Not entered Radiography Diagnostic Testing: Radiology Impression Echocardiogram 07/16/23 02:41 Interpretation Summary Normal LV size. Severe concentric left ventricular hypertrophy. Left ventricular systolic function is normal. The left ventricular ejection fraction is 65 %. Stage 1 diastolic dysfunction. Bubble contrast study negative for right to left interatrial shunt. The global longitudinal strain = -17.4 % (normal). Ordering Physician: Anastacia Selby Referring Physician: Jacky Morgan Performed By: Laura Trinidad, MICHAEL, RVT Rhythm Strip Rhythm Strip: Sinus Rhythm Rate: 95 Ectopy: None Physical Exam Const alert and no apparent distress General Appearance: cooperative HEENT normocephalic, head/scalp atraumatic and moist oral mucous membranes Eyes PERRL, EOMs intact bilaterally and conjunctivae normal Neck supple General: trachea midline Chest inspection of chest normal Resp normal respiratory effort Auscultation: Negative for rales, rhonchi or wheezes Cardio regular rate and regular rhythm Heart Sounds: murmur GI normal to inspection, nondistended, normoactive bowel sounds Extremity no clubbing, cyanosis or edema Skin no rashes or lesions noted Neuro CN's II-XII intact bilaterally and no focal motor deficits Psych cooperative and affect normal Charges/Coding Visit Charges Inpatient E&M: 20966 Subs Hosp L2
[2023-07-17 07:59] LABS: Bedside Glucose 100 mg/dL (74-106)
[2023-07-17 08:32] LABS: Absolute Lymphocyte Count 1.51 X10^3/uL (0.83-4.51); Absolute Neutrophil Count 4.5 X10^3/uL (2.0-7.7); Basophil# 0.02 X10^3/uL; Basophil% 0.3 % (0-1); Eosinophil# 0.28 X10^3/uL; Hemoglobin 9.8 g/dL (12.0-15.0); Lymphocyte # 1.51 X10^3/ul (0.83-4.51); Lymphocyte % 21.7 % (19-41); Mean Corp Hgb Conc 30.6 g/dL (32-36); Mean Corpuscular Hgb 28.6 pg (27.0-32.0); Mean Corpuscular Volume 93.3 fL (81-99); Mean Platelet Vol. 11.2 fl (6.2-12.0); Monocyte# 0.64 X10^3/uL; Monocyte% 9.2 % (0-10); NRBC Flagged by Analyzer 0 % (0-5); Neutrophil # 4.49 X10^3/uL (2.7-7.7); Neutrophil % 64.5 % (47-70); POSITIVE COUNT YES; RBC Distribution Width CV 17.9 % (11.6-14.6); RBC Distribution Width SD 61.5 fl (35.1-43.9); Red Blood Count 3.43 M/mm3 (4.2-5.4)
[2023-07-17 08:58] LABS: Anion Gap 5 (5-15); BUN 28 mg/dL (7-18); BUN/Creat Ratio 6.5 RATIO (10-20); Calcium,Total 8.8 mg/dL (8.5-10.1); Chloride 107 mmol/L (98-107); Creatinine, Serum 4.31 mg/dL (0.55-1.02); EST Glomerular Filtration Rate 10 mL/min (>60); Est Glom Filt Rate - Afr Amer 13 mL/min (>60); Glucose 101 mg/dL (74-106); Potassium 4.2 mmol/L (3.5-5.1); Sodium Level 137 mmol/L (136-145)
[2023-07-17 09:22] LABS: Differential Indicated SCAN CRITERIA MET; Platelet Estimate SLT DEC (ADEQ)
--- NOTE | 2023-07-17 10:19 | CASEMGMT ---
LIZETTE CM to pt room regarding DC planning. Pt states that she is unsure what she wants to do at time of DC. Pt states that she would like to see PT again today and then talk to her son. Plan at this time is TBD. Will follow.
[2023-07-17] MEDS: hydrALAZINE 50 MG Tablet PO ×4 (10:26→20:34)
[2023-07-17] MEDS: NIFEdipine 60 MG Tablet PO ×2 (10:26→20:36)
[2023-07-17] MEDS: Pantoprazole Sodium 40 MG Tablet PO (10:27)
[2023-07-17] MEDS: Furosemide 20 MG Tablet 60 MG PO ×2 (10:27→17:39)
[2023-07-17] MEDS: Menthol/Lanolin/Calamine/Znox 113 GM Tube 1 APPLIC TOPICAL ×2 (10:27→13:37)
[2023-07-17] MEDS: Doxazosin 1 MG Tablet 2 MG PO ×2 (10:27→20:35)
[2023-07-17] MEDS: Carvedilol 12.5 MG Tablet PO ×2 (10:27→16:33)
[2023-07-17] MEDS: Folic Acid 1 MG Tablet PO (10:27)
[2023-07-17] MEDS: Multivitamins,Therapeutic Tablet 1 TABLET PO (10:27)
--- NOTE | 2023-07-17 10:38 | PN.RENAL_ITS ---
Subjective Subjective Sitting in chair. Eating breakfast. Reports feeling better today. Denies any complaints. Objective Data Objective Data Vital Signs: Vital Signs Temp Pulse Resp BP Pulse Ox O2 Del Method 98 F 96 20 H 150/66 H 96 Room Air 07/17/23 09:00 07/17/23 10:26 07/17/23 09:00 07/17/23 10:26 07/17/23 10:13 07/17/23 09:00 Oxygen Delivery Method Room Air Weight: 48.2 kg Body Mass Index (BMI) 20.8 Intake & Output: Intake and Output for Last 24 Hours 07/15/23 07/16/23 07/17/23 23:59 23:59 23:59 Intake Total 3136.25 / 3136.25 50 / 50 Output Total 1180 / 1180 Balance 1956.25 / 6.25 50 / 50 Lab / Micro Data 07/17/23 08:21 07/17/23 08:21 Labs: Laboratory Results - last 24 hr 07/16/23 11:54: POC Glucose 121 H 07/16/23 16:35: POC Glucose 143 H 07/16/23 21:31: POC Glucose 113 H 07/17/23 07:31: POC Glucose 100 07/17/23 08:21: WBC 7.0, RBC 3.43 L, Hgb 9.8 L, Hct 32.0 L, MCV 93.3, MCH 28.6, MCHC 30.6 L, RDW Std Deviation 61.5 H, RDW Coeff of Wiliam 17.9 H, Plt Count TNP, MPV 11.2, Immature Gran % (Auto) 0.300, Neut % (Auto) 64.5, Lymph % (Auto) 21.7, [place] % (Auto) 9.2, Eos % (Auto) 4.0, Baso % (Auto) 0.3, Absolute Neuts (auto) 4.5, Absolute Lymphs (auto) 1.51, Nucleated RBC % 0, Platelet Estimate SLT DEC, Sodium 137, Potassium 4.2, Chloride 107, Carbon Dioxide 25.0, Anion Gap 5, BUN 28 H, Creatinine 4.31 H, Estim Creat Clear Calc 7.10, Est GFR (MDRD) Af Amer 13 L, Est GFR (MDRD) Non-Af 10 L, BUN/Creatinine Ratio 6.5 L, Glucose 101, Calcium 8.8 Micro: Microbiology 07/16/23 00:16 Mucosa - Nose SARS-CoV-2, Influenza & RSV (PCR) - Final Radiography Diagnostic Testing: Radiology Impression Echocardiogram 07/16/23 02:41 Interpretation Summary Normal LV size. Severe concentric left ventricular hypertrophy. Left ventricular systolic function is normal. The left ventricular ejection fraction is 65 %. Stage 1 diastolic dysfunction. Bubble contrast study negative for right to left interatrial shunt. The global longitudinal strain = -17.4 % (normal). Ordering Physician: Anastacia Selby Referring Physician: Jacky Morgan Performed By: Larua Trinidad, MICHAEL, RVT Rhythm Strip Rhythm Strip: Sinus Rhythm Rate: 95 Ectopy: None Physical Exam Narrative Alert and orient x 3, no apparent distress S1, S2, RRR Lung sounds clear anteriorly and posteriorly. No wheezes, rhonchi or rales noted Abdomen soft, nontender No edema Assessment & Plan Assessment/Plan (1) ESRD on dialysis: (2) Hypertensive emergency: (3) Acute encephalopathy: (4) Acute UTI: PLAN: Plan - ESRD on hemodialysis on a Friday at [facility], followed by Dr. Reyes. Tolerated dialysis yesterday. No acute indication for BILLET EXAMINER today. Next dialysis will be tomorrow. -Patient was significantly hypertensive and started on Cardene drip. Brain CT did not show any acute intracranial abnormality. chest x-ray which did not show any evidence of acute cardiopulmonary disease. Blood pressures have improved. Echo: Normal LV size, severe concentric left ventricular hypertrophy, EF 65%, stage I diastolic dysfunction, no pericardial effusion. Blood pressures much improved, off Cardene drip and on home antihypertensives. - history of anemia of chronic disease, current hemoglobin 9.8. Will monitor hemoglobin trends. No need for CIERA at this time. -On IV antibiotics for possible UTI. Urine culture pending. Blood cultures fr om 07/14 pending.
[2023-07-17] MEDS: Lidocaine 5% Patch 1 PATCH TOPICAL (10:56)
[2023-07-17] MEDS: Heparin Injection (Vial) 5,000 UNIT/ML VIAL 5000 UNIT SC ×2 (11:00→20:37)
--- NOTE | 2023-07-17 12:15 | PN_ITS ---
Subjective Subjective Patient seen and examined. She felt much better today. Her blood pressure has come down significantly. She has been switched to oral BP meds. She says she has not really ambulated much with physical therapy. Review of systems otherwise negative. Objective Data Objective Data Vital Signs: Vital Signs Temp Pulse Resp BP Pulse Ox O2 Del Method 98 F 96 20 H 150/66 H 96 Room Air 07/17/23 09:00 07/17/23 10:26 07/17/23 09:00 07/17/23 10:26 07/17/23 10:13 07/17/23 09:00 Oxygen Delivery Method Room Air Weight: 106 lb 4.205 oz Body Mass Index (BMI) 20.8 Intake & Output: Intake and Output for Last 24 Hours 07/15/23 07/16/23 07/17/23 23:59 23:59 23:59 Intake Total 3136.25 / 3136.25 410 / 410 Output Total 1180 / 1180 0 / 0 Balance 1956.25 / 1956.25 410 / 410 Lab / Micro Data 07/17/23 08:21 07/17/23 08:21 Labs: Laboratory Results - last 24 hr 07/16/23 16:35: POC Glucose 143 H 07/16/23 21:31: POC Glucose 113 H 07/17/23 07:31: POC Glucose 100 07/17/23 08:21: WBC 7.0, RBC 3.43 L, Hgb 9.8 L, Hct 32.0 L, MCV 93.3, MCH 28.6, MCHC 30.6 L, RDW Std Deviation 61.5 H, RDW Coeff of Wiliam 17.9 H, Plt Count TNP, MPV 11.2, Immature Gran % (Auto) 0.300, Neut % (Auto) 64.5, Lymph % (Auto) 21.7, [place] % (Auto) 9.2, Eos % (Auto) 4.0, Baso % (Auto) 0.3, Absolute Neuts (auto) 4.5, Absolute Lymphs (auto) 1.51, Nucleated RBC % 0, Platelet Estimate SLT DEC, Sodium 137, Potassium 4.2, Chloride 107, Carbon Dioxide 25.0, Anion Gap 5, BUN 28 H, Creatinine 4.31 H, Estim Creat Clear Calc 7.10, Est GFR (MDRD) Af Amer 13 L, Est GFR (MDRD) Non-Af 10 L, BUN/Creatinine Ratio 6.5 L, Glucose 101, Calcium 8.8 Micro: Microbiology 07/16/23 00:16 Mucosa - Nose SARS-CoV-2, Influenza & RSV (PCR) - Final Radiography Diagnostic Testing: Radiology Impression Echocardiogram 07/16/23 02:41 Interpretation Summary Normal LV size. Severe concentric left ventricular hypertrophy. Left ventricular systolic function is normal. The left ventricular ejection fraction is 65 %. Stage 1 diastolic dysfunction. Bubble contrast study negative for right to left interatrial shunt. The global longitudinal strain = -17.4 % (normal). Ordering Physician: Anastacia Selby Referring Physician: Jacky Morgan Performed By: Laura Trinidad, MICHAEL, RVT Rhythm Strip Rhythm Strip: Sinus Rhythm Rate: 95 Ectopy: None Physical Exam Const alert, oriented x3, no apparent distress and well nourished General Appearance: cooperative and well developed HEENT normocephalic, head/scalp atraumatic, moist oral mucous membranes and oropharynx normal Eyes PERRL and EOMs intact bilaterally Neck no lymphadenopathy and supple Lymph Lymphatic: no lymphadenopathy noted and no lymphedema noted Resp normal respiratory effort, normal air movement and clear to auscultation bilaterally Cardio regular rate, regular rhythm, S1 normal heart sound, S2 normal heart sound and no murmurs GI normal to inspection, nondistended, normoactive bowel sounds, soft to palpation, non-tender and non-distended Extremity normal capillary refill, no clubbing, cyanosis or edema and no calf tenderness General Extremity: no tenderness to palpation of joints or extremities Skin General Skin Exam: no breakdown Neuro CN's II-XII intact bilaterally, no focal motor deficits, no sensory deficits noted and deep tendon reflexes 2+ bilaterally Motor Exam: strength 5/5 throughout and general weakness Psych thought process normal and cooperative Appearance: appropriate Assessment & Plan Assessment/Plan (1) Acute UTI: (2) ESRD on dialysis: (3) Hypertensive emergency: PLAN: Plan #Acute encephalopathy due to UTI and hypertensive emergency * now off nicardipine drip * on oral BP meds-carvedilol * urine cultures pending; blood culture also pendin * Altered mental status has also resolved. * #UTI: as above #Hypertensive emergency: resolved. Off nicardipine drip. On carvedilol 12.5 mg twice daily. IV hydralazine as needed #ESRD: on hemodialysis MWF. Nephrology consuled. She had dialysis today # Hypothyroidism: On Synthroid #Rheumatoid arthritis: stable #Sjogren's disease: stable #History of bladder cancer: S/p transurethral resection of the bladder tumor. Follow-up with Dr. Soliman on outpatient basis GERD: On PPI #DVT prophylaxis: Heparin Disposition: anticipate dc tomorrow if she remains stable and does well with PT/OT. Charges/Coding Visit Charges Inpatient E&M: 06500 Subs Hosp L2
[2023-07-17 12:27] LABS: Bedside Glucose 218 mg/dL (74-106)
[2023-07-17] MEDS: Insulin Lispro 100 UNIT/ML INSULN.PEN SC (12:32)
[2023-07-17 16:59] LABS: Bedside Glucose 89 mg/dL (74-106)
[2023-07-17] MEDS: Acetaminophen 325 MG Tablet 650 MG PO (18:15)
[2023-07-17] MEDS: Ceftriaxone 1 GM/50 ML BAG IV (20:23)
[2023-07-17] MEDS: Latanoprost 0.005% 1 Bottle 1 DRP EACH EYE (20:37)
[2023-07-17 21:01] LABS: Bedside Glucose 110 mg/dL (74-106)
[2023-07-17] MEDS: Arthritis Pain Compound 60 CLICK TUBE TOPICAL (22:34)
[2023-07-18] VITALS (16 sets, daily range): BP systolic 144–312; BP diastolic 63–83; PULSE 70–85; RESP 14–16; TEMP 36.4–36.7; O2SAT 96–99; BMI 20.8
[2023-07-18] MEDS: Levothyroxine 25 MCG TABLET PO (05:47)
[2023-07-18 06:06] LABS: Bedside Glucose 109 mg/dL (74-106)
[2023-07-18 07:47] LABS: Absolute Lymphocyte Count 1.47 X10^3/uL (0.83-4.51); Absolute Neutrophil Count 4.4 X10^3/uL (2.0-7.7); Basophil# 0.04 X10^3/uL; Basophil% 0.6 % (0-1); Eosinophil# 0.28 X10^3/uL; Eosinophils% 4.2 % (0-5); Hematocrit 34.3 % (37-47); Hemoglobin 10.5 g/dL (12.0-15.0); Lymphocyte # 1.47 X10^3/ul (0.83-4.51); Lymphocyte % 21.9 % (19-41); Mean Corp Hgb Conc 30.6 g/dL (32-36); Mean Corpuscular Hgb 28.4 pg (27.0-32.0); Mean Corpuscular Volume 92.7 fL (81-99); Mean Platelet Vol. 11.5 fl (6.2-12.0); Monocyte# 0.49 X10^3/uL; Monocyte% 7.3 % (0-10); NRBC Flagged by Analyzer 0 % (0-5); Neutrophil # 4.36 X10^3/uL (2.7-7.7); Platelet Count 158 K/mm3 (150-450); RBC Distribution Width CV 17.3 % (11.6-14.6); RBC Distribution Width SD 58.8 fl (35.1-43.9); White Blood Count 6.7 K/mm3 (4.4-11.0)
[2023-07-18] MEDS: 0.9% Normal Saline 1,000 ML IV.SOLN. 1000 ML OPERA.SITE (08:10)
[2023-07-18] MEDS: PureFlow B 3K Dialysis Soln 1 BAG 6 BAG PF (08:10)
[2023-07-18 08:15] LABS: Anion Gap 8 (5-15); BUN 34 mg/dL (7-18); BUN/Creat Ratio 7.6 RATIO (10-20); Calcium,Total 9.2 mg/dL (8.5-10.1); Chloride 106 mmol/L (98-107); Creatinine, Serum 4.49 mg/dL (0.55-1.02); EST Glomerular Filtration Rate 10 mL/min (>60); Est Glom Filt Rate - Afr Amer 12 mL/min (>60); Estimated Creatinine Clearance 6.82 ml/min; Glucose 105 mg/dL (74-106); Potassium 4.3 mmol/L (3.5-5.1); Sodium Level 138 mmol/L (136-145)
--- NOTE | 2023-07-18 08:35 | CASEMGMT ---
Social Work Pt's son called in asking to speak w/the SW, message left. SW called son Alberto back in regard to discharge plan. Son states pt is having difficulty walking, is incontinent. He states would like pt to go somewhere for a convalescent stay. Son asked about TCU, however pt is on dialysis so this is not a possibility. SW explained this to son. SW offered to give son a list of nursing home facilities when he is here later, he states will be here this afternoon. SW did explain the one local facility that does dialysis on site is [facility]. Son agreeable to a referral to [facility]. SW explained will make referral and asked son to stop at nurse's station when he is here this afternoon so SW can update him. If [facility] cannot take pt, SW will provide a list of nursing homes from [facility] in pt's preferred geographic area, insurance network, and complete w/quality and resource use data. MARYAM did explain that the other facilities in the area would need to transport pt to and from dialysis, as per son pt has dialysis M,W,F at [facility], 11am chair time. [facility] usually transports pt. SW did also educate son on the Medicare SNF benefit, as per son pt has never been to a SNF in the past. MARYAM spoke w/Chiara, d/c logistics planning manager, and she will make referral to [facility]. MARYAM will continue to follow. RAGINI Noriega
--- NOTE | 2023-07-18 08:54 | CASEMGMT ---
Discharge Planning Referral sent via [facility] to [facility]. Chiara Hopkins, Discharge Planning Asst.
--- NOTE | 2023-07-18 09:23 | CASEMGMT ---
MARYAM called patient's son Jabier. MARYAM introduced self and role at [facility]. MARYAM asked if it would be okay if patient switched to [facility] for dialysis while at [facility]. Jabier said that would be fine. MARYAM notified [facility]. Janeth SHEPHERD
[2023-07-18] MEDS: Carvedilol 12.5 MG Tablet PO ×2 (10:56→17:28)
[2023-07-18] MEDS: Folic Acid 1 MG Tablet PO (10:56)
[2023-07-18] MEDS: Multivitamins,Therapeutic Tablet 1 TABLET PO (10:57)
[2023-07-18] MEDS: Furosemide 20 MG Tablet 60 MG PO ×2 (10:57→17:28)
[2023-07-18] MEDS: hydrALAZINE 50 MG Tablet PO ×4 (10:57→21:13)
[2023-07-18] MEDS: Heparin Injection (Vial) 5,000 UNIT/ML VIAL 5000 UNIT SC ×2 (10:58→21:13)
[2023-07-18] MEDS: Doxazosin 1 MG Tablet 2 MG PO ×2 (10:58→21:14)
[2023-07-18] MEDS: Pantoprazole Sodium 40 MG Tablet PO (10:58)
[2023-07-18] MEDS: Menthol/Lanolin/Calamine/Znox 113 GM Tube 1 APPLIC TOPICAL ×4 (10:59→21:04)
[2023-07-18] MEDS: Lidocaine 5% Patch 1 PATCH TOPICAL (10:59)
[2023-07-18] MEDS: Arthritis Pain Compound 60 CLICK TUBE TOPICAL ×2 (11:00→21:04)
[2023-07-18] MEDS: NIFEdipine 60 MG Tablet PO ×2 (11:01→21:13)
--- NOTE | 2023-07-18 11:01 | PN.RENAL_ITS ---
Subjective Subjective Seen and examined after dialysis today. Tolerated treatment well with around 2.3 L fluid removal. No overnight events Objective Data Objective Data Vital Signs: Vital Signs Temp Pulse Resp BP Pulse Ox O2 Del Method 97.6 F L 76 14 193/80 H 98 Room Air 07/18/23 06:45 07/18/23 09:45 07/18/23 09:45 07/18/23 09:45 07/18/23 09:45 07/18/23 09:45 Oxygen Delivery Method Room Air Weight: 46.2 kg Body Mass Index (BMI) 20.0 Intake & Output: Intake and Output for Last 24 Hours 07/16/23 07/17/23 07/18/23 23:59 23:59 23:59 Intake Total 3136.25 / 3136.25 580 / 580 Output Total 1180 / 1180 0 / 0 2019 Balance 1956.25 / 1956.25 580 / 580 -2019 Lab / Micro Data 07/18/23 07:05 07/18/23 07:05 Labs: Laboratory Results - last 24 hr 07/17/23 12:07: POC Glucose 218 H 07/17/23 16:40: POC Glucose 89 07/17/23 20:42: POC Glucose 110 H 07/18/23 05:47: POC Glucose 109 H 07/18/23 07:05: WBC 6.7, RBC 3.70 L, Hgb 10.5 L, Hct 34.3 L, MCV 92.7, MCH 28.4, MCHC 30.6 L, RDW Std Deviation 58.8 H, RDW Coeff of Wiliam 17.3 H, Plt Count 158, MPV 11.5, Immature Gran % (Auto) 1.000 H, Neut % (Auto) 65.0, Lymph % (Auto) 21.9, [place] % (Auto) 7.3, Eos % (Auto) 4.2, Baso % (Auto) 0.6, Absolute Neuts (auto) 4.4, Absolute Lymphs (auto) 1.47, Nucleated RBC % 0, Sodium 138, Potassium 4.3, Chloride 106, Carbon Dioxide 24.0, Anion Gap 8, BUN 34 H, Creatinine 4.49 H, Estim Creat Clear Calc 6.82, Est GFR (MDRD) Af Amer 12 L, Est GFR (MDRD) Non-Af 10 L, BUN/Creatinine Ratio 7.6 L, Glucose 105, Calcium 9.2 Micro: Microbiology 07/15/23 23:28 Blood Culture (Wb) - Right Wrist Blood Culture - Preliminary No growth in 48 hours. 07/15/23 23:18 Blood Culture (Wb) - Anticubital Right Blood Culture - Preliminary No growth in 48 hours. 07/16/23 00:16 Mucosa - Nose SARS-CoV-2, Influenza & RSV (PCR) - Final Rhythm Strip Rhythm Strip: Sinus Rhythm Rate: 95 Ectopy: None Physical Exam Narrative Alert and orient x 3, no apparent distress S1, S2, RRR Lung sounds clear anteriorly and posteriorly. No wheezes, rhonchi or rales noted Abdomen soft, nontender No edema Assessment & Plan Assessment/Plan (1) ESRD on dialysis: (2) Hypertensive emergency: (3) Acute encephalopathy: (4) Acute UTI: PLAN: Plan - ESRD on hemodialysis on a Friday at [facility], followed by Dr. Reyes. Patient underwent hemodialysis today and tolerated around 2.3 L fluid removal. Had been attempting for more fluid removal but due to low blood pressures during dialysis ultrafiltration amount was backed off. Likely next dialysis will be Friday. -Patient was significantly hypertensive and started on Cardene drip on admission. Brain CT did not show any acute intracranial abnormality. chest x- ray which did not show any evidence of acute cardiopulmonary disease. Blood pressures have improved. Echo: Normal LV size, severe concentric left ventricular hypertrophy, EF 65%, stage I diastolic dysfunction, no pericardial effusion. Blood pressures had improved, off Cardene drip and on home antihypertensives. Blood pressures slightly elevated this morning however am antihypertensives were held this morning for dialysis. - history of anemia of chronic disease, current hemoglobin 10.5. Will monitor hemoglobin trends. No need for CIEAR at this time. -On IV antibiotics for possible UTI. Urine culture pending. Blood cultures so far no growth to date. - discharge planning in progress possibly to [facility] with dialysis at [facility].
[2023-07-18] MEDS: CHLORHEXIDINE GLUC 2% CLOTH 1 EACH TOWELETTE TOPICAL (11:04)
--- NOTE | 2023-07-18 11:08 | CASEMGMT ---
Social Work PAS/RR completed in the [employer] system, no further review needed. RAGINI Noriega
[2023-07-18 11:36] LABS: Bedside Glucose 98 mg/dL (74-106)
--- NOTE | 2023-07-18 12:44 | PN_ITS ---
Subjective Subjective Patient seen and examined. She had no complaints apart from feeling cold. She was having dialysis. Review of systems otherwise negative. She has not decided to go to a senior care and is awaiting placement. Objective Data Objective Data Vital Signs: Vital Signs Temp Pulse Resp BP Pulse Ox O2 Del Method 97.6 F L 76 14 193/80 H 98 Room Air 07/18/23 06:45 07/18/23 10:57 07/18/23 09:45 07/18/23 09:45 07/18/23 09:45 07/18/23 09:45 Oxygen Delivery Method Room Air Weight: 101 lb 13.657 oz Body Mass Index (BMI) 20.0 Intake & Output: Intake and Output for Last 24 Hours 07/16/23 07/17/23 07/18/23 23:59 23:59 23:59 Intake Total 3136.25 / 3136.25 580 / 580 Output Total 1180 / 1180 0 / 0 2019 / 2019 Balance 1956.25 / 1956.25 580 / 580 -2019 Lab / Micro Data 07/18/23 07:05 07/18/23 07:05 Labs: Laboratory Results - last 24 hr 07/17/23 16:40: POC Glucose 89 07/17/23 20:42: POC Glucose 110 H 07/18/23 05:47: POC Glucose 109 H 07/18/23 07:05: WBC 6.7, RBC 3.70 L, Hgb 10.5 L, Hct 34.3 L, MCV 92.7, MCH 28.4, MCHC 30.6 L, RDW Std Deviation 58.8 H, RDW Coeff of Wiliam 17.3 H, Plt Count 158, MPV 11.5, Immature Gran % (Auto) 1.000 H, Neut % (Auto) 65.0, Lymph % (Auto) 21.9, [place] % (Auto) 7.3, Eos % (Auto) 4.2, Baso % (Auto) 0.6, Absolute Neuts (auto) 4.4, Absolute Lymphs (auto) 1.47, Nucleated RBC % 0, Sodium 138, Potassium 4.3, Chloride 106, Carbon Dioxide 24.0, Anion Gap 8, BUN 34 H, Creatinine 4.49 H, Estim Creat Clear Calc 6.82, Est GFR (MDRD) Af Amer 12 L, Est GFR (MDRD) Non-Af 10 L, BUN/Creatinine Ratio 7.6 L, Glucose 105, Calcium 9.2 07/18/23 11:13: POC Glucose 98 Micro: Microbiology 07/16/23 00:10 Urine, Clean Catch Urine Culture - Final Culture exhibits no growth. 07/15/23 23:28 Blood Culture (Wb) - Right Wrist Blood Culture - Preliminary No growth in 48 hours. 07/15/23 23:18 Blood Culture (Wb) - Anticubital Right Blood Culture - Preliminary No growth in 48 hours. 07/16/23 00:16 Mucosa - Nose SARS-CoV-2, Influenza & RSV (PCR) - Final Rhythm Strip Rhythm Strip: Sinus Rhythm Rate: 95 Ectopy: None Physical Exam Const alert, oriented x3, no apparent distress and well nourished General Appearance: cooperative and well developed HEENT normocephalic, head/scalp atraumatic, moist oral mucous membranes and oropharynx normal Eyes PERRL and EOMs intact bilaterally Neck no lymphadenopathy and supple Lymph Lymphatic: no lymphadenopathy noted and no lymphedema noted Resp normal respiratory effort, normal air movement and clear to auscultation bilaterally Cardio regular rate, regular rhythm, S1 normal heart sound, S2 normal heart sound and no murmurs GI normal to inspection, nondistended, normoactive bowel sounds, soft to palpation, non-tender and non-distended Extremity normal capillary refill, no clubbing, cyanosis or edema and no calf tenderness General Extremity: no tenderness to palpation of joints or extremities Skin General Skin Exam: no breakdown Neuro CN's II-XII intact bilaterally, no focal motor deficits, no sensory deficits noted and deep tendon reflexes 2+ bilaterally Motor Exam: strength 5/5 throughout and general weakness Psych thought process normal and cooperative Appearance: appropriate Assessment & Plan Assessment/Plan (1) Acute UTI: (2) ESRD on dialysis: (3) Hypertensive emergency: PLAN: Plan #Acute encephalopathy due to UTI and hypertensive emergency * now off nicardipine drip * on oral BP meds-carvedilol * urine cultures pending; blood culture also pendin * Altered mental status has also resolved. * #UTI: as above #Hypertensive emergency: resolved. Off nicardipine drip. On carvedilol 12.5 mg twice daily. IV hydralazine as needed #ESRD: on hemodialysis MWF. Nephrology consuled. She had dialysis today # Hypothyroidism: On Synthroid #Rheumatoid arthritis: stable #Sjogren's disease: stable #History of bladder cancer: S/p transurethral resection of the bladder tumor. Follow-up with Dr. Soliman on outpatient basis GERD: On PPI #DVT prophylaxis: Heparin Disposition: Patient possible to fdc facility so for discharge tomorrow. Charges/Coding Visit Charges Inpatient E&M: 57492 Subs Hosp L2
--- NOTE | 2023-07-18 13:29 | CASEMGMT ---
[facility] accepted patient. SW sent dialysis run sheets and hep panel via [employer]. Plan: [facility] under skilled level of care. PASRR completed in [employer] system Janeth SHEPHERD
--- NOTE | 2023-07-18 13:44 | CASEMGMT ---
SW called patient's son Jabier and let him know [facility] accepted patient. Jabier asked if he could transport. Patient is not on any O2 so SW let him know if he feels comfortable that should not be a problem. Plan: d/c to [facility] under skilled level of care on a PASRR. Family will transport patient. Janeth SHEPHERD
[2023-07-18 16:24] LABS: Bedside Glucose 110 mg/dL (74-106)
[2023-07-18] MEDS: Ceftriaxone 1 GM/50 ML BAG IV (21:08)
[2023-07-18] MEDS: 0.9% Saline Lock 10 ML Syringe IV (21:08)
[2023-07-18] MEDS: Acetaminophen 325 MG Tablet 650 MG PO (21:10)
[2023-07-18 22:19] LABS: Bedside Glucose 96 mg/dL (74-106)
[2023-07-19] VITALS (12 sets, daily range): BP systolic 166–203; BP diastolic 72–88; PULSE 83–99; RESP 14–18; TEMP 36.6–36.9; O2SAT 94–99
[2023-07-19] MEDS: Levothyroxine 25 MCG TABLET PO (05:25)
[2023-07-19 05:53] LABS: Bedside Glucose 83 mg/dL (74-106)
[2023-07-19 06:47] LABS: Absolute Lymphocyte Count 1.02 X10^3/uL (0.83-4.51); Absolute Neutrophil Count 3.8 X10^3/uL (2.0-7.7); Basophil# 0.03 X10^3/uL; Basophil% 0.5 % (0-1); Eosinophil# 0.19 X10^3/uL; Eosinophils% 3.4 % (0-5); Hematocrit 35.7 % (37-47); Hemoglobin 10.9 g/dL (12.0-15.0); Lymphocyte # 1.02 X10^3/ul (0.83-4.51); Lymphocyte % 18.3 % (19-41); Mean Corp Hgb Conc 30.5 g/dL (32-36); Mean Corpuscular Hgb 28.3 pg (27.0-32.0); Mean Corpuscular Volume 92.7 fL (81-99); Mean Platelet Vol. 11.3 fl (6.2-12.0); Monocyte# 0.48 X10^3/uL; Monocyte% 8.6 % (0-10); NRBC Flagged by Analyzer 0 % (0-5); Neutrophil % 68.3 % (47-70); Platelet Count 141 K/mm3 (150-450); RBC Distribution Width CV 17.5 % (11.6-14.6); RBC Distribution Width SD 59.5 fl (35.1-43.9); Red Blood Count 3.85 M/mm3 (4.2-5.4); White Blood Count 5.6 K/mm3 (4.4-11.0)
[2023-07-19 07:11] LABS: Anion Gap 7 (5-15); BUN 32 mg/dL (7-18); BUN/Creat Ratio 6.7 RATIO (10-20); Calcium,Total 9.5 mg/dL (8.5-10.1); Chloride 106 mmol/L (98-107); Creatinine, Serum 4.79 mg/dL (0.55-1.02); EST Glomerular Filtration Rate 9 mL/min (>60); Est Glom Filt Rate - Afr Amer 11 mL/min (>60); Estimated Creatinine Clearance 6.39 ml/min; Glucose 100 mg/dL (74-106); Potassium 4.3 mmol/L (3.5-5.1); Sodium Level 137 mmol/L (136-145)
[2023-07-19] MEDS: Carvedilol 12.5 MG Tablet PO ×2 (09:59→17:51)
[2023-07-19] MEDS: Folic Acid 1 MG Tablet PO (10:00)
[2023-07-19] MEDS: Multivitamins,Therapeutic Tablet 1 TABLET PO (10:00)
[2023-07-19] MEDS: hydrALAZINE 50 MG Tablet PO ×4 (10:01→21:35)
[2023-07-19] MEDS: Doxazosin 1 MG Tablet 2 MG PO ×2 (10:02→21:35)
[2023-07-19] MEDS: Arthritis Pain Compound 60 CLICK TUBE TOPICAL ×2 (10:02→21:37)
[2023-07-19] MEDS: Furosemide 20 MG Tablet 60 MG PO ×2 (10:03→17:53)
[2023-07-19] MEDS: Lidocaine 5% Patch 1 PATCH TOPICAL (10:03)
[2023-07-19] MEDS: Heparin Injection (Vial) 5,000 UNIT/ML VIAL 5000 UNIT SC ×2 (10:03→21:37)
[2023-07-19] MEDS: NIFEdipine 60 MG Tablet PO ×2 (10:04→21:36)
[2023-07-19] MEDS: Pantoprazole Sodium 40 MG Tablet PO (10:05)
--- NOTE | 2023-07-19 11:23 | PCM.TXEXTCAR ---
Diet Diet Order/Speech Therapy: 07/16/23 10:00 Diet: Renal - General Is pt able to select menu?: Yes Routine Orders/Code Status Enema Type: Fleetz Enema Frequency: Daily PRN Suppository Type: Dulcolax 10mg Suppository Frequency: Daily PRN O2 Frequency: PRN Keep PO Greater than or Equal to (%): 90 Therapies Weight Bearing: Weight bearing as tolerated Physical Therapy: Eval and Treat Occupational Therapy: Eval and Treat Problem/Diagnosis (1) Acute UTI: Status: Acute Code(s): N39.0 - Urinary tract infection, site not specified (2) ESRD on dialysis: Status: Acute Code(s): N18.6 - End stage renal disease; Z99.2 - Dependence on renal dialysis (3) Hypertensive emergency: Status: Acute Code(s): I16.1 - Hypertensive emergency Plan #Acute encephalopathy due to UTI and hypertensive emergency now off nicardipine drip on oral BP meds-carvedilol urine cultures pending; blood culture also pendin Altered mental status has also resolved. #UTI: as above #Hypertensive emergency: resolved. Off nicardipine drip. On carvedilol 12.5 mg twice daily. IV hydralazine as needed #ESRD: on hemodialysis MWF. Nephrology consuled. She had dialysis today # Hypothyroidism: On Synthroid #Rheumatoid arthritis: stable #Sjogren's disease: stable #History of bladder cancer: S/p transurethral resection of the bladder tumor. Follow-up with Dr. Soliman on outpatient basis GERD: On PPI #DVT prophylaxis: Heparin Disposition: Patient possible to residential facility so for discharge tomorrow. Allergies/Procedures Done in Hospital Allergies adalimumab [From Humira] Allergy (Verified 06/05/23 13:37) Hives Procedures: Dialysis Type of Care/Length of Stay Estimated LOS: Convalescent Care Less Than 30 days Type of Care Needed: Skilled Rehab Potential: Fair Prognosis: Fair Additional Orders/Day of Discharge Day of Discharge: 07/19/23 Dietary and Speech Recommendations Dietitian Recommendations/Changes: will adjust diet to renal-general, will monitor intake at meals, wt, and labs and adjust diet/add ONS as indicated Discharge Plan Admission Admit Date/Time: 07/16/23 01:40 Primary Reason for Your Visit: acute encephalopahy, UTI, hypertensive emergency Attending Provider: Maria Del Rosario Cooper Primary Care Provider: Jacky Morgan Consulting Providers: Anastacia Selby; Shu Ballesteros Instructions Patient Instructions: Controlling High Blood Pressure, ED UTIs Women Discharge Orders/Prescriptions Prescriptions: New nifedipine 60 mg Tablet Extended Release 24hr 60 mg PO BID Qty: 60 2RF Continued icosapent ethyl [Vascepa] 1 gram capsule 2 g PO BID Qty: 180 3RF doxazosin [Cardura] 2 mg tablet 2 mg PO BID 90 Days Qty: 180 3RF (DME) Juxta Lite See Rx Instructions .Route .MEDSUPPLY Qty: 2 4RF Rx Instructions: As directed lidocaine 5 % adhesive patch,medicated topical Patient Comments: apply 1 patch to affected area daily hydralazine 50 mg tablet 50 mg PO .QID 90 Days Qty: 360 1RF multivitamin Tablet 1 tab PO DAILY carvedilol 12.5 mg Tablet 12.5 mg PO BID Rx Instructions: must administer with a meal/food famotidine 40 mg Tablet 40 mg PO DAILY Vitamin C 1,000 mg Tablet Extended Release 1,000 mg PO DAILY levothyroxine 25 mcg Tablet 25 mcg PO DAILY folic acid 1 mg Tablet 1 mg PO DAILY Lumigan 0.01 % Drops 1 drp EACH EYE QHS pantoprazole 40 mg tablet,delayed release (DR/EC) 40 mg PO PRN furosemide [Lasix] 40 mg tablet 60 mg PO BID Rx Instructions: q acetaminophen [Tylenol] 325 mg Capsule 650 mg PO QHS hydrocodone-acetaminophen 5-325 mg tablet 1 tab PO Q6H PRN (Reason: pain) 3 Days Qty: 12 0RF nifedipine 60 mg tablet extended release 60 mg PO BID gabapentin 100 mg capsule 200 mg PO DAILY PRN (Reason: Neuropathy) 90 Days Qty: 90 1RF Rx Instructions: Daily Prn Discontinued amlodipine 10 mg tablet 10 mg PO DAILY Referrals / Follow Up: Jacky Morgan MD [Primary Care Provider] - Within 1 Week Disposition Disposition (needs filled in before D/C Order can be placed): Intermediate Facility
--- NOTE | 2023-07-19 11:27 | PCM.DC.SUM ---
Providers Date of Admission: 07/16/23 Primary Care Physician: Dr. Jacky Morgan MD Consultations 07/16/23 02:[address]: Senior [address] Office Assistant / Pulmonary Medicine Routine Consulting Provider: Intensivists/Pulmonary Med Reason for Consult: Hypertensive emergency, UTI EMERGENT Consult: No Notified: Yes Date Notified: 07/16/23 Time Notified: 02:19 Method of Notification: Text Consult: Nephrology Routine Consulting Provider: Shu Ballesteros Reason for Consult: ESRD on HD EMERGENT Consult: No Notified: Yes Date Notified: 07/16/23 Time Notified: 02:19 Method of Notification: Answering Service Reason For Visit: HYPERTENSIVE EMERGENCY, UTI Diagnosis Discharge Diagnosis (1) Acute UTI: Status: Acute Code(s): N39.0 - Urinary tract infection, site not specified (2) ESRD on dialysis: Status: Acute Code(s): N18.6 - End stage renal disease; Z99.2 - Dependence on renal dialysis (3) Hypertensive emergency: Status: Acute Code(s): I16.1 - Hypertensive emergency Plan #Acute encephalopathy due to UTI and hypertensive emergency now off nicardipine drip on oral BP meds-carvedilol urine cultures pending; blood culture also pendin Altered mental status has also resolved. #UTI: as above #Hypertensive emergency: resolved. Off nicardipine drip. On carvedilol 12.5 mg twice daily. IV hydralazine as needed #ESRD: on hemodialysis MWF. Nephrology consuled. She had dialysis today # Hypothyroidism: On Synthroid #Rheumatoid arthritis: stable #Sjogren's disease: stable #History of bladder cancer: S/p transurethral resection of the bladder tumor. Follow-up with Dr. Soliman on outpatient basis GERD: On PPI #DVT prophylaxis: Heparin Disposition: Patient possible to senior living facility so for discharge tomorrow. Medications at Discharge Home Medications ascorbic acid (vitamin C) 1,000 mg tablet,extended release (Vitamin C ER) 1,000 mg PO DAILY 06/13/22 bimatoprost 0.01 % eye drops (Lumigan) 1 drp EACH EYE QHS 06/13/22 carvedilol 12.5 mg tablet 12.5 mg PO BID BLOOD PRESSURE 06/13/22 famotidine 40 mg tablet 40 mg PO DAILY 06/13/22 folic acid 1 mg tablet 1 mg PO DAILY 06/13/22 levothyroxine 25 mcg tablet 25 mcg PO DAILY 06/13/22 multivitamin 1 tab PO DAILY 06/13/22 Juxta Lite #2 ea 08/15/22 doxazosin 2 mg tablet (Cardura) 2 mg PO BID 3 months #180 tabs 08/15/22 furosemide 40 mg tablet (Lasix) 60 mg PO BID 08/15/22 icosapent ethyl 1 gram capsule (Vascepa) 2 g (2 x 1 gram) PO BID #180 caps 08/15/22 acetaminophen 325 mg capsule (Tylenol) 650 mg PO QHS 10/03/22 hydrocodone-acetaminophen 5-325mg 5mg-325mg 1 tab PO Q6H PRN pain 3 days #12 tabs 10/10/22 lidocaine 5 % topical patch patch topical 01/30/23 hydralazine 50 mg tablet 50 mg PO .QID 3 months #360 tabs 06/05/23 gabapentin 100 mg capsule 200 mg (2 x 100 mg) PO DAILY PRN Neuropathy 3 months #90 caps 06/27/23 pantoprazole 40 mg tablet,delayed release 40 mg PO PRN Indigestion 06/30/23 nifedipine 60 mg tablet,extended release 60 mg PO BID BLOOD PRESSURE 07/16/23 nifedipine 60 mg tablet,extended release 24 hr 60 mg PO BID #60 tabs 07/19/23 Weight / BMI Weight Weight: 101 lb 13.657 oz Body Mass Index (BMI) 20.0 ABG / Lab / Microbiology Data 07/19/23 06:25 07/19/23 06:25 Laboratory: Laboratory Results - last 24 hr 07/18/23 11:13: POC Glucose 98 07/18/23 16:06: POC Glucose 110 H 07/18/23 22:02: POC Glucose 96 07/19/23 05:28: POC Glucose 83 07/19/23 06:25: WBC 5.6, RBC 3.85 L, Hgb 10.9 L, Hct 35.7 L, MCV 92.7, MCH 28.3, MCHC 30.5 L, RDW Std Deviation 59.5 H, RDW Coeff of Wiliam 17.5 H, Plt Count 141 L, MPV 11.3, Immature Gran % (Auto) 0.900, Neut % (Auto) 68.3, Lymph % (Auto) 18.3 L, [place] % (Auto) 8.6, Eos % (Auto) 3.4, Baso % (Auto) 0.5, Absolute Neuts (auto) 3.8, Absolute Lymphs (auto) 1.02, Nucleated RBC % 0, Sodium 137, Potassium 4.3, Chloride 106, Carbon Dioxide 24.0, Anion Gap 7, BUN 32 H, Creatinine 4.79 H, Estim Creat Clear Calc 6.39, Est GFR (MDRD) Af Amer 11 L, Est GFR (MDRD) Non-Af 9 L, BUN/Creatinine Ratio 6.7 L, Glucose 100, Calcium 9.5 Microbiology: Microbiology 07/16/23 00:10 Urine, Clean Catch Urine Culture - Final Culture exhibits no growth. 07/15/23 23:28 Blood Culture (Wb) - Right Wrist Blood Culture - Preliminary No growth in 48 hours. 07/15/23 23:18 Blood Culture (Wb) - Anticubital Right Blood Culture - Preliminary No growth in 48 hours. 07/16/23 00:16 Mucosa - Nose SARS-CoV-2, Influenza & RSV (PCR) - Final Discharge Plan Admission Admit Date/Time: 07/16/23 01:40 Primary Reason for Your Visit: acute encephalopahy, UTI, hypertensive emergency Attending Provider: Maria Del Rosario Cooper Primary Care Provider: Jacky Morgan Consulting Providers: Anastacia Selby; Shu Ballesteros Instructions Patient Instructions: Controlling High Blood Pressure, ED UTIs Women Discharge Orders/Prescriptions Prescriptions: New nifedipine 60 mg Tablet Extended Release 24hr 60 mg PO BID Qty: 60 2RF Continued icosapent ethyl [Vascepa] 1 gram capsule 2 g PO BID Qty: 180 3RF doxazosin [Cardura] 2 mg tablet 2 mg PO BID 90 Days Qty: 180 3RF (DME) Juxta Lite See Rx Instructions .Route .MEDSUPPLY Qty: 2 4RF Rx Instructions: As directed lidocaine 5 % adhesive patch,medicated topical Patient Comments: apply 1 patch to affected area daily hydralazine 50 mg tablet 50 mg PO .QID 90 Days Qty: 360 1RF multivitamin Tablet 1 tab PO DAILY carvedilol 12.5 mg Tablet 12.5 mg PO BID Rx Instructions: must administer with a meal/food famotidine 40 mg Tablet 40 mg PO DAILY Vitamin C 1,000 mg Tablet Extended Release 1,000 mg PO DAILY levothyroxine 25 mcg Tablet 25 mcg PO DAILY folic acid 1 mg Tablet 1 mg PO DAILY [place] 0.01 % Drops 1 drp EACH EYE QHS pantoprazole 40 mg tablet,delayed release (DR/EC) 40 mg PO PRN furosemide [Lasix] 40 mg tablet 60 mg PO BID Rx Instructions: q acetaminophen [Tylenol] 325 mg Capsule 650 mg PO QHS hydrocodone-acetaminophen 5-325 mg tablet 1 tab PO Q6H PRN (Reason: pain) 3 Days Qty: 12 0RF nifedipine 60 mg tablet extended release 60 mg PO BID gabapentin 100 mg capsule 200 mg PO DAILY PRN (Reason: Neuropathy) 90 Days Qty: 90 1RF Rx Instructions: Daily Prn Discontinued amlodipine 10 mg tablet 10 mg PO DAILY Referrals / Follow Up: Jacky Morgan MD [Primary Care Provider] - Within 1 Week Disposition Disposition (needs filled in before D/C Order can be placed): Snf Facility
--- NOTE | 2023-07-19 12:12 | CASEMGMT ---
Social work Catherine from [facility] called, she states pt was not yet cleared by dialysis to come. She is going to try to reach someone today so pt can still come, but it may end up being pt has to stay here until Friday. texted physician to let her know, and also called son to let him know. If pt does get cleared by dialysis this weekend, Catherine from [facility] will call and let the PCU staff know, and they will let the physician and son know. RAGINI Noriega
--- NOTE | 2023-07-19 14:43 | PN_ITS ---
Subjective Subjective Patient seen and examined. She had no active complaints. Plan was for her to be discharged today but discharge had to be canceled as her longterm had not yet cleared with nephrology that she could have dialysis. Review of symptoms otherwise negative. Blood pressure does remain elevated. Objective Data Objective Data Vital Signs: Vital Signs Temp Pulse Resp BP Pulse Ox O2 Del Method 98.4 F 85 16 189/74 H 97 Room Air 07/19/23 14:37 07/19/23 14:37 07/19/23 14:37 07/19/23 14:37 07/19/23 14:37 07/19/23 14:37 Oxygen Delivery Method Room Air Weight: 101 lb 13.657 oz Body Mass Index (BMI) 20.0 Intake & Output: Intake and Output for Last 24 Hours 07/17/23 07/18/23 07/19/23 23:59 23:59 23:59 Intake Total 580 / 580 170 / 170 120 / 120 Output Total 0 / 0 2019 Balance 580 / 580 -1850 / -1850 120 / 120 Lab / Micro Data 07/19/23 06:25 07/19/23 06:25 Labs: Laboratory Results - last 24 hr 07/18/23 16:06: POC Glucose 110 H 07/18/23 22:02: POC Glucose 96 07/19/23 05:28: POC Glucose 83 07/19/23 06:25: WBC 5.6, RBC 3.85 L, Hgb 10.9 L, Hct 35.7 L, MCV 92.7, MCH 28.3, MCHC 30.5 L, RDW Std Deviation 59.5 H, RDW Coeff of Wiliam 17.5 H, Plt Count 141 L, MPV 11.3, Immature Gran % (Auto) 0.900, Neut % (Auto) 68.3, Lymph % (Auto) 18.3 L, [place] % (Auto) 8.6, Eos % (Auto) 3.4, Baso % (Auto) 0.5, Absolute Neuts (auto) 3.8, Absolute Lymphs (auto) 1.02, Nucleated RBC % 0, Sodium 137, Potassium 4.3, Chloride 106, Carbon Dioxide 24.0, Anion Gap 7, BUN 32 H, Creatinine 4.79 H, Estim Creat Clear Calc 6.39, Est GFR (MDRD) Af Amer 11 L, Est GFR (MDRD) Non-Af 9 L, BUN/Creatinine Ratio 6.7 L, Glucose 100, Calcium 9.5 Micro: Microbiology 07/16/23 00:10 Urine, Clean Catch Urine Culture - Final Culture exhibits no growth. 07/15/23 23:28 Blood Culture (Wb) - Right Wrist Blood Culture - Preliminary No growth in 48 hours. 07/15/23 23:18 Blood Culture (Wb) - Anticubital Right Blood Culture - Preliminary No growth in 48 hours. 07/16/23 00:16 Mucosa - Nose SARS-CoV-2, Influenza & RSV (PCR) - Final Rhythm Strip Rhythm Strip: Sinus Rhythm Rate: 95 Ectopy: None Physical Exam Const alert, oriented x3, no apparent distress and well nourished General Appearance: cooperative and well developed HEENT normocephalic, head/scalp atraumatic, moist oral mucous membranes and oropharynx normal Eyes PERRL and EOMs intact bilaterally Neck no lymphadenopathy and supple Lymph Lymphatic: no lymphadenopathy noted and no lymphedema noted Resp normal respiratory effort, normal air movement and clear to auscultation bilaterally Cardio regular rate, regular rhythm, S1 normal heart sound, S2 normal heart sound and no murmurs GI normal to inspection, nondistended, normoactive bowel sounds, soft to palpation, non-tender and non-distended Extremity normal capillary refill, no clubbing, cyanosis or edema and no calf tenderness General Extremity: no tenderness to palpation of joints or extremities Skin General Skin Exam: no breakdown Neuro CN's II-XII intact bilaterally, no focal motor deficits, no sensory deficits noted and deep tendon reflexes 2+ bilaterally Motor Exam: strength 5/5 throughout and general weakness Psych thought process normal and cooperative Appearance: appropriate Assessment & Plan Assessment/Plan (1) Acute UTI: (2) ESRD on dialysis: (3) Hypertensive emergency: PLAN: Plan #Acute encephalopathy due to UTI and hypertensive emergency * now off nicardipine drip * on oral BP meds-carvedilol and nifedipine * urine cultures pending; blood culture also pendin * Altered mental status has also resolved. * #UTI: as above #Hypertensive emergency: * resolved. Off nicardipine drip. On carvedilol 12.5 mg twice daily as well as nifedipine 60 mg twice daily. * IV hydralazine as needed. Blood pressure elevated today. Will monitor and adjust BP meds as needed. #ESRD: on hemodialysis MWF. Nephrology on board. # Hypothyroidism: On Synthroid #Rheumatoid arthritis: stable #Sjogren's disease: stable #History of bladder cancer: S/p transurethral resection of the bladder tumor. Follow-up with Dr. Soliman on outpatient basis GERD: On PPI #DVT prophylaxis: Heparin Disposition: Patient awaiting discharge to SNF. SNF to confirm with nephrology that she can have dialysis there. Charges/Coding Visit Charges Inpatient E&M: 60226 Subs Hosp L2
[2023-07-19 17:01] LABS: Bedside Glucose 78 mg/dL (74-106)
[2023-07-19] MEDS: Latanoprost 0.005% 1 Bottle 1 DRP EACH EYE (21:38)
[2023-07-19] MEDS: 0.9% Saline Lock 10 ML Syringe IV ×2 (21:41→23:16)
[2023-07-19] MEDS: Ceftriaxone 1 GM/50 ML BAG IV (21:44)
[2023-07-19 22:34] LABS: Bedside Glucose 95 mg/dL (74-106)
[2023-07-19] MEDS: Acetaminophen 325 MG Tablet 650 MG PO (23:13)
[2023-07-19] MEDS: hydrALAZINE 20 MG/ML Vial 10 MG IV (23:15)
[2023-07-19] MEDS: MELATONIN 3 MG TABLET PO (23:46)
[2023-07-20] VITALS (20 sets, daily range): BP systolic 160–202; BP diastolic 63–78; PULSE 66–84; RESP 16–20; TEMP 36.2–36.8; O2SAT 92–98
[2023-07-20] MEDS: Metoprolol Tartrate 5 MG/5 ML Vial IV ×3 (00:22→23:49)
--- NOTE | 2023-07-20 01:03 | PCM.HOSP.N ---
Hospitalist Note Patient with elevated BP, not responsive to hydralazine. Will dose with IV BB and continue to monitor.
[2023-07-20] MEDS: 0.9% Saline Lock 10 ML Syringe IV ×4 (01:24→23:49)
[2023-07-20 06:00] LABS: Absolute Lymphocyte Count 1.06 X10^3/uL (0.83-4.51); Basophil# 0.04 X10^3/uL; Basophil% 0.7 % (0-1); Eosinophil# 0.18 X10^3/uL; Hematocrit 34.2 % (37-47); Hemoglobin 10.5 g/dL (12.0-15.0); Lymphocyte # 1.06 X10^3/ul (0.83-4.51); Lymphocyte % 17.7 % (19-41); Mean Corp Hgb Conc 30.7 g/dL (32-36); Mean Corpuscular Hgb 28.2 pg (27.0-32.0); Mean Corpuscular Volume 91.9 fL (81-99); Mean Platelet Vol. 10.9 fl (6.2-12.0); Monocyte# 0.61 X10^3/uL; Monocyte% 10.2 % (0-10); NRBC Flagged by Analyzer 0 % (0-5); Neutrophil # 4.03 X10^3/uL (2.7-7.7); Neutrophil % 67.2 % (47-70); Platelet Count 152 K/mm3 (150-450); RBC Distribution Width CV 17.4 % (11.6-14.6); RBC Distribution Width SD 58.8 fl (35.1-43.9); Red Blood Count 3.72 M/mm3 (4.2-5.4)
[2023-07-20] MEDS: Levothyroxine 25 MCG TABLET PO (06:00)
[2023-07-20] MEDS: hydrALAZINE 20 MG/ML Vial 10 MG IV ×3 (06:08→22:28)
[2023-07-20 06:21] LABS: Anion Gap 9 (5-15); BUN 39 mg/dL (7-18); BUN/Creat Ratio 6.3 RATIO (10-20); Calcium,Total 9.4 mg/dL (8.5-10.1); Chloride 102 mmol/L (98-107); Creatinine, Serum 6.23 mg/dL (0.55-1.02); EST Glomerular Filtration Rate 7 mL/min (>60); Est Glom Filt Rate - Afr Amer 8 mL/min (>60); Estimated Creatinine Clearance 4.91 ml/min; Glucose 94 mg/dL (74-106); Potassium 4.4 mmol/L (3.5-5.1); Sodium Level 134 mmol/L (136-145)
[2023-07-20 06:31] LABS: Bedside Glucose 86 mg/dL (74-106)
[2023-07-20] MEDS: hydrALAZINE 50 MG Tablet PO ×4 (08:29→21:29)
[2023-07-20] MEDS: Carvedilol 25 MG Tablet PO ×2 (08:29→17:18)
[2023-07-20] MEDS: NIFEdipine 60 MG Tablet PO ×2 (08:29→21:30)
[2023-07-20] MEDS: Furosemide 20 MG Tablet 60 MG PO ×2 (08:30→17:20)
[2023-07-20] MEDS: Folic Acid 1 MG Tablet PO (08:30)
[2023-07-20] MEDS: Doxazosin 1 MG Tablet 2 MG PO ×2 (08:31→21:30)
[2023-07-20] MEDS: Heparin Injection (Vial) 5,000 UNIT/ML VIAL 5000 UNIT SC ×2 (08:33→21:22)
[2023-07-20] MEDS: Arthritis Pain Compound 60 CLICK TUBE TOPICAL ×2 (08:33→21:26)
[2023-07-20] MEDS: Pantoprazole Sodium 40 MG Tablet PO (08:34)
[2023-07-20] MEDS: Multivitamins,Therapeutic Tablet 1 TABLET PO (08:37)
--- NOTE | 2023-07-20 10:53 | PN_ITS ---
Subjective Subjective Patient seen and examined. She had no active complaints and had an uneventful night. Review of systems otherwise negative. Blood pressure still remains elevated. She is awaiting discharge. Objective Data Objective Data Vital Signs: Vital Signs Temp Pulse Resp BP Pulse Ox O2 Del Method 98.0 F 82 18 160/72 H 97 Room Air 07/20/23 08:26 07/20/23 08:29 07/20/23 08:26 07/20/23 08:26 07/20/23 08:26 07/20/23 08:26 Oxygen Delivery Method Room Air Weight: 101 lb 13.657 oz Body Mass Index (BMI) 20.0 Intake & Output: Intake and Output for Last 24 Hours 07/18/23 07/19/23 07/20/23 23:59 23:59 23:59 Intake Total 170 / 170 1070 / 1070 Output Total 2019 Balance -1850 / -1850 1070 / 1070 Lab / Micro Data 07/20/23 05:37 07/20/23 05:37 Labs: Laboratory Results - last 24 hr 07/19/23 16:42: POC Glucose 78 07/19/23 21:33: POC Glucose 95 07/20/23 05:37: WBC 6.0, RBC 3.72 L, Hgb 10.5 L, Hct 34.2 L, MCV 91.9, MCH 28.2, MCHC 30.7 L, RDW Std Deviation 58.8 H, RDW Coeff of Wiliam 17.4 H, Plt Count 152, MPV 10.9, Immature Gran % (Auto) 1.200 H, Neut % (Auto) 67.2, Lymph % (Auto) 17.7 L, [place] % (Auto) 10.2 H, Eos % (Auto) 3.0, Baso % (Auto) 0.7, Absolute Neuts (auto) 4.0, Absolute Lymphs (auto) 1.06, Nucleated RBC % 0, Sodium 134 L, Potassium 4.4, Chloride 102, Carbon Dioxide 23.0, Anion Gap 9, BUN 39 H, Creatinine 6.23 H, Estim Creat Clear Calc 4.91, Est GFR (MDRD) Af Amer 8 L, Est GFR (MDRD) Non-Af 7 L, BUN/Creatinine Ratio 6.3 L, Glucose 94, Calcium 9.4 07/20/23 06:05: POC Glucose 86 Micro: Microbiology 07/16/23 00:10 Urine, Clean Catch Urine Culture - Final Culture exhibits no growth. 07/15/23 23:28 Blood Culture (Wb) - Right Wrist Blood Culture - Preliminary No growth in 48 hours. 07/15/23 23:18 Blood Culture (Wb) - Anticubital Right Blood Culture - Preliminary No growth in 48 hours. 07/16/23 00:16 Mucosa - Nose SARS-CoV-2, Influenza & RSV (PCR) - Final Rhythm Strip Rhythm Strip: Sinus Rhythm Rate: 95 Ectopy: None Physical Exam Const alert, oriented x3, no apparent distress and well nourished General Appearance: cooperative and well developed HEENT normocephalic, head/scalp atraumatic, moist oral mucous membranes and oropharynx normal Eyes PERRL and EOMs intact bilaterally Neck no lymphadenopathy and supple Lymph Lymphatic: no lymphadenopathy noted and no lymphedema noted Resp normal respiratory effort, normal air movement and clear to auscultation bilaterally Cardio regular rate, regular rhythm, S1 normal heart sound, S2 normal heart sound and no murmurs GI normal to inspection, nondistended, normoactive bowel sounds, soft to palpation, non-tender and non-distended Extremity normal capillary refill, no clubbing, cyanosis or edema and no calf tenderness General Extremity: no tenderness to palpation of joints or extremities Skin General Skin Exam: no breakdown Neuro CN's II-XII intact bilaterally, no focal motor deficits, no sensory deficits noted and deep tendon reflexes 2+ bilaterally Motor Exam: strength 5/5 throughout and general weakness Psych thought process normal and cooperative Appearance: appropriate Assessment & Plan Assessment/Plan (1) Acute UTI: (2) ESRD on dialysis: (3) Hypertensive emergency: PLAN: Plan #Acute encephalopathy due to UTI and hypertensive emergency * now off nicardipine drip * on oral BP meds-carvedilol and nifedipine * urine cultures pending; blood culture also pendinh * Altered mental status has also resolved. * #UTI: as above #Hypertensive emergency: * resolved. Off nicardipine drip. On carvedilol 25mg bid as well as nifedipine 60 mg twice daily and doxazosin as well as lasix * IV hydralazine as needed. * Blood pressure still remains elevated. IV hydralazine prn. Dialysis tomorrow will help with fluid removal and also help with the BP * #ESRD: on hemodialysis MWF. Nephrology on board. # Hypothyroidism: On Synthroid #Rheumatoid arthritis: stable #Sjogren's disease: stable #History of bladder cancer: S/p transurethral resection of the bladder tumor. Follow-up with Dr. Soliman on outpatient basis GERD: On PPI #DVT prophylaxis: Heparin Disposition: Patient awaiting discharge to SNF. SNF to confirm with nephrology that she can have dialysis there. Charges/Coding Visit Charges Inpatient E&M: 47942 Subs Hosp L2
[2023-07-20 12:47] LABS: Bedside Glucose 124 mg/dL (74-106)
[2023-07-20] MEDS: Acetaminophen 325 MG Tablet 650 MG PO (20:23)
[2023-07-20] MEDS: Latanoprost 0.005% 1 Bottle 1 DRP EACH EYE (21:22)
[2023-07-20] MEDS: Ceftriaxone 1 GM/50 ML BAG IV (21:25)
[2023-07-20 22:43] LABS: Bedside Glucose 112 mg/dL (74-106)
[2023-07-20 22:43] LABS: Bedside Glucose 140 mg/dL (74-106)
[2023-07-21] VITALS (20 sets, daily range): BP systolic 113–261; BP diastolic 59–99; PULSE 66–91; RESP 12–18; TEMP 36.3–36.8; O2SAT 97–99; BMI 19.1
[2023-07-21] MEDS: Levothyroxine 25 MCG TABLET PO (06:00)
[2023-07-21] MEDS: hydrALAZINE 20 MG/ML Vial 10 MG IV ×2 (06:00→14:41)
[2023-07-21] MEDS: 0.9% Saline Lock 10 ML Syringe IV (06:01)
[2023-07-21 06:25] LABS: Bedside Glucose 94 mg/dL (74-106)
[2023-07-21 06:46] LABS: Absolute Lymphocyte Count 1.16 X10^3/uL (0.83-4.51); Absolute Neutrophil Count 4.6 X10^3/uL (2.0-7.7); Basophil# 0.03 X10^3/uL; Basophil% 0.5 % (0-1); Eosinophil# 0.18 X10^3/uL; Eosinophils% 2.7 % (0-5); Hemoglobin 10.3 g/dL (12.0-15.0); Lymphocyte # 1.16 X10^3/ul (0.83-4.51); Lymphocyte % 17.4 % (19-41); Mean Corp Hgb Conc 31.2 g/dL (32-36); Mean Corpuscular Hgb 28.2 pg (27.0-32.0); Mean Corpuscular Volume 90.4 fL (81-99); Mean Platelet Vol. 11.1 fl (6.2-12.0); NRBC Flagged by Analyzer 0 % (0-5); Neutrophil # 4.62 X10^3/uL (2.7-7.7); Neutrophil % 69.3 % (47-70); Platelet Count 150 K/mm3 (150-450); RBC Distribution Width CV 16.9 % (11.6-14.6); RBC Distribution Width SD 56.6 fl (35.1-43.9); Red Blood Count 3.65 M/mm3 (4.2-5.4); White Blood Count 6.7 K/mm3 (4.4-11.0)
[2023-07-21 07:07] LABS: Anion Gap 11 (5-15); BUN 47 mg/dL (7-18); BUN/Creat Ratio 6.5 RATIO (10-20); Calcium,Total 9.2 mg/dL (8.5-10.1); Chloride 101 mmol/L (98-107); Creatinine, Serum 7.24 mg/dL (0.55-1.02); EST Glomerular Filtration Rate 6 mL/min (>60); Est Glom Filt Rate - Afr Amer 7 mL/min (>60); Estimated Creatinine Clearance 4.23 ml/min; Glucose 103 mg/dL (74-106); Potassium 4.6 mmol/L (3.5-5.1); Sodium Level 134 mmol/L (136-145)
[2023-07-21] MEDS: PureFlow B 3K Dialysis Soln 1 BAG 6 BAG PF (07:52)
[2023-07-21] MEDS: 0.9% Normal Saline 1,000 ML IV.SOLN. 1000 ML OPERA.SITE (07:52)
--- NOTE | 2023-07-21 10:03 | CASEMGMT ---
[facility] has cleared patient to get dialysis at [facility]. will notify physician that patient can be discharged today. Janeth SHEPHERD
[2023-07-21 10:53] LABS: Bedside Glucose 125 mg/dL (74-106)
--- NOTE | 2023-07-21 11:31 | PCM.PN.REN ---
Subjective Subjective No new events Objective Data Objective Data Vital Signs: Vital Signs Temp Pulse Resp BP Pulse Ox O2 Del Method 98.3 F 91 14 164/78 H 98 Room Air 07/21/23 07:30 07/21/23 10:30 07/21/23 10:30 07/21/23 10:30 07/21/23 10:30 07/21/23 10:30 Oxygen Delivery Method Room Air Weight: 44.2 kg Body Mass Index (BMI) 19.1 Intake & Output: Intake and Output for Last 24 Hours 07/19/23 07/20/23 07/21/23 23:59 23:59 23:59 Intake Total 1070 / 1070 530 / 530 Output Total 2420 / 2420 Balance 1070 / 1070 530 / 530 -2420 / -2420 Lab / Micro Data 07/21/23 06:17 07/21/23 06:17 Labs: Laboratory Results - last 24 hr 07/20/23 11:50: POC Glucose 124 H 07/20/23 17:12: POC Glucose 112 H 07/20/23 21:34: POC Glucose 140 H 07/21/23 06:05: POC Glucose 94 07/21/23 06:17: WBC 6.7, RBC 3.65 L, Hgb 10.3 L, Hct 33.0 L, MCV 90.4, MCH 28.2, MCHC 31.2 L, RDW Std Deviation 56.6 H, RDW Coeff of Wiliam 16.9 H, Plt Count 150, MPV 11.1, Immature Gran % (Auto) 1.100 H, Neut % (Auto) 69.3, Lymph % (Auto) 17.4 L, [place] % (Auto) 9.0, Eos % (Auto) 2.7, Baso % (Auto) 0.5, Absolute Neuts (auto) 4.6, Absolute Lymphs (auto) 1.16, Nucleated RBC % 0, Sodium 134 L, Potassium 4.6, Chloride 101, Carbon Dioxide 22.0, Anion Gap 11, BUN 47 H, Creatinine 7.24 H, Estim Creat Clear Calc 4.23, Est GFR (MDRD) Af Amer 7 L, Est GFR (MDRD) Non-Af 6 L, BUN/Creatinine Ratio 6.5 L, Glucose 103, Calcium 9.2 03/25/24 10:34: POC Glucose 125 H Micro: Microbiology 07/15/23 23:28 Blood Culture (Wb) - Right Wrist Blood Culture - Final No growth in 5 days. 07/15/23 23:18 Blood Culture (Wb) - Anticubital Right Blood Culture - Final No growth in 5 days. 07/16/23 00:10 Urine, Clean Catch Urine Culture - Final Culture exhibits no growth. 07/16/23 00:16 Mucosa - Nose SARS-CoV-2, Influenza & RSV (PCR) - Final Rhythm Strip Rhythm Strip: Sinus Rhythm Rate: 95 Ectopy: None Physical Exam Narrative Alert and orient x 3, no apparent distress S1, S2, RRR Lung sounds clear anteriorly and posteriorly. No wheezes, rhonchi or rales noted Abdomen soft, nontender No edema Assessment & Plan Assessment/Plan (1) ESRD on dialysis: (2) Hypertensive emergency: (3) Acute encephalopathy: (4) Acute UTI: PLAN: Plan - ESRD on hemodialysis on a Friday at [facility], followed by Dr. Reyes. Patient underwent hemodialysis today and tolerated around 2.4 L fluid removal. -Hypertension. brain CT did not show any acute intracranial abnormality. chest x-ray which did not show any evidence of acute cardiopulmonary disease. Blood pressures have improved. Echo: Normal LV size, severe concentric left ventricular hypertrophy, EF 65%, stage I diastolic dysfunction, no pericardial effusion. - history of anemia of chronic disease, No need for CIERA at this time.
--- NOTE | 2023-07-21 11:57 | CASEMGMT ---
Patient will be discharged to [facility] today. 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 SW notified nurse and physician. Plan: [facility] under skilled level of care on a convalescent stay. Family will transport patient via private vehicle. Janeth SHEPHERD
--- NOTE | 2023-07-21 11:58 | TREXTCAR_ITS ---
Diet Diet Order/Speech Therapy: 07/16/23 10:00 Diet: Renal - General Is pt able to select menu?: Yes Routine Orders/Code Status O2 Frequency: PRN Keep PO Greater than or Equal to (%): 90 Code Status: Full Code Therapies Weight Bearing: Weight bearing as tolerated Physical Therapy: Eval and Treat Occupational Therapy: Eval and Treat Problem/Diagnosis (1) ESRD on dialysis: Status: Acute Code(s): N18.6 - End stage renal disease; Z99.2 - Dependence on renal dialysis (2) Hypertensive emergency: Status: Acute Code(s): I16.1 - Hypertensive emergency (3) Acute encephalopathy: Status: Acute Code(s): G93.40 - Encephalopathy, unspecified (4) Acute UTI: Status: Acute Code(s): N39.0 - Urinary tract infection, site not specified Plan Patient is an 82-year-old female who presented to [facility] ED on 07/16/2023 with confusion and decreased responsiveness. Hospital course as noted below. Patient discharged to SNF in stable condition on 07/20. 1. Acute metabolic encephalopathy, resolved ? Suspected secondary to hypertensive emergency as noted below. CT brain without contrast on admit nonacute. Improved hospital day 2. Treatment as noted below. 2. Hypertensive emergency Suspected secondary to volume overload with need for increased volume removal with hemodialysis. Chest x-ray on admit nonacute. CT brain nonacute. Echo showed EF 65%, stage I diastolic dysfunction, severe concentric LV hypertrophy, no valve abnormalities. ? Nephrology followed. Treated with Cardene drip on admission with improvement. Dialyzed during admission as noted below. Okay to continue home regimen on discharge of Coreg 12.5 mg twice daily, doxazosin 2 mg twice daily, Lasix 60 mg twice daily, hydralazine 50 mg 4 times daily, nifedipine 60 mg twice daily. 3. Concern for UTI ? UA on admit showed 500 leukocyte esterase, negative nitrates, 1+ bacteria. Urine culture with no growth. Empirically treated with 5-day course of ceftriaxone that was completed while inpatient. 4. ESRD ? Nephrology followed as above. On HD MWF. Last HD session on morning of 07/20 prior to discharge. Chronic medical conditions: ? Hypothyroidism: Continue home Synthroid. ? RA, Sjogren's disease: Stable. Continue home eyedrops. ? History of bladder cancer s/p transurethral resection of bladder tumor: Outpatient follow-up with urology as needed. ? GERD: Continue home PPI. Total clinical time spent by myself addressing the patient's medical issues, reviewing all the data, and collaborating with patient's care team: 35 minutes. Allergies/Procedures Done in Hospital Allergies adalimumab [From Humira] Allergy (Verified 06/05/23 13:37) Hives Procedures: Dialysis, EKG, Transthoracic Echo and - (Chest x-ray, CT brain without contrast) Type of Care/Length of Stay Estimated LOS: Convalescent Care Less Than 30 days Type of Care Needed: Skilled Rehab Potential: Fair Prognosis: Fair Additional Orders/Day of Discharge H&P will serve as current which was dated: 07/16/23 Day of Discharge: 07/21/23 Dietary and Speech Recommendations Dietitian Recommendations/Changes: will adjust diet to renal-general, will monitor intake at meals, wt, and labs and adjust diet/add ONS as indicated Discharge Plan Admission Admit Date/Time: 07/16/23 01:40 Primary Reason for Your Visit: acute encephalopathy, HTN emergency Attending Provider: León Ye Primary Care Provider: Jacky Morgan Consulting Providers: Anastacia Selby; Shu Ballesteros; Maria Del Rosario Cooper Instructions Patient Instructions: Controlling High Blood Pressure, ED UTIs Women Discharge Orders/Prescriptions Prescriptions: New nifedipine 60 mg Tablet Extended Release 24hr 60 mg PO BID Qty: 60 2RF Continued icosapent ethyl [Vascepa] 1 gram capsule 2 g PO BID Qty: 180 3RF doxazosin [Cardura] 2 mg tablet 2 mg PO BID 90 Days Qty: 180 3RF (DME) Juxta Lite See Rx Instructions .Route .MEDSUPPLY Qty: 2 4RF Rx Instructions: As directed lidocaine 5 % adhesive patch,medicated topical Patient Comments: apply 1 patch to affected area daily hydralazine 50 mg tablet 50 mg PO .QID 90 Days Qty: 360 1RF multivitamin Tablet 1 tab PO DAILY carvedilol 12.5 mg Tablet 12.5 mg PO BID Rx Instructions: must administer with a meal/food famotidine 40 mg Tablet 40 mg PO DAILY Vitamin C 1,000 mg Tablet Extended Release 1,000 mg PO DAILY levothyroxine 25 mcg Tablet 25 mcg PO DAILY folic acid 1 mg Tablet 1 mg PO DAILY Lumigan 0.01 % Drops 1 drp EACH EYE QHS pantoprazole 40 mg tablet,delayed release (DR/EC) 40 mg PO PRN furosemide [Lasix] 40 mg tablet 60 mg PO BID Rx Instructions: q acetaminophen [Tylenol] 325 mg Capsule 650 mg PO QHS hydrocodone-acetaminophen 5-325 mg tablet 1 tab PO Q6H PRN (Reason: pain) 3 Days Qty: 12 0RF nifedipine 60 mg tablet extended release 60 mg PO BID gabapentin 100 mg capsule 200 mg PO DAILY PRN (Reason: Neuropathy) 90 Days Qty: 90 1RF Rx Instructions: Daily Prn Discontinued amlodipine 10 mg tablet 10 mg PO DAILY Referrals / Follow Up: Jacky Morgan MD [Primary Care Provider] - Within 1 Week Disposition Disposition (needs filled in before D/C Order can be placed): Snf Facility
--- NOTE | 2023-07-21 12:15 | PCM.DC.SUM ---
Providers Date of Admission: 07/16/23 Date of Discharge: 07/21/23 Primary Care Physician: Dr. Jacky Morgan MD Consultations 07/16/23 02:41 Consult: Valve Technician / Pulmonary Medicine Routine Consulting Provider: Intensivists/Pulmonary Med Reason for Consult: Hypertensive emergency, UTI EMERGENT Consult: No Notified: Yes Date Notified: 07/16/23 Time Notified: 02:19 Method of Notification: Text Consult: Nephrology Routine Consulting Provider: Shu Ballesteros Reason for Consult: ESRD on HD EMERGENT Consult: No Notified: Yes Date Notified: 07/16/23 Time Notified: 02:19 Method of Notification: Answering Service Reason For Visit: HYPERTENSIVE EMERGENCY, UTI Diagnosis Discharge Diagnosis (1) ESRD on dialysis: Status: Acute Code(s): N18.6 - End stage renal disease; Z99.2 - Dependence on renal dialysis (2) Hypertensive emergency: Status: Acute Code(s): I16.1 - Hypertensive emergency (3) Acute encephalopathy: Status: Acute Code(s): G93.40 - Encephalopathy, unspecified (4) Acute UTI: Status: Acute Code(s): N39.0 - Urinary tract infection, site not specified Medications at Discharge Home Medications ascorbic acid (vitamin C) 1,000 mg tablet,extended release (Vitamin C ER) 1,000 mg PO DAILY 06/13/22 bimatoprost 0.01 % eye drops (Lumigan) 1 drp EACH EYE QHS 06/13/22 carvedilol 12.5 mg tablet 12.5 mg PO BID BLOOD PRESSURE 06/13/22 famotidine 40 mg tablet 40 mg PO DAILY 06/13/22 folic acid 1 mg tablet 1 mg PO DAILY 06/13/22 levothyroxine 25 mcg tablet 25 mcg PO DAILY 06/13/22 multivitamin 1 tab PO DAILY 06/13/22 Juxta Lite #2 ea 08/15/22 doxazosin 2 mg tablet (Cardura) 2 mg PO BID 3 months #180 tabs 08/15/22 furosemide 40 mg tablet (Lasix) 60 mg PO BID 08/15/22 icosapent ethyl 1 gram capsule (Vascepa) 2 g (2 x 1 gram) PO BID #180 caps 08/15/22 acetaminophen 325 mg capsule (Tylenol) 650 mg PO QHS 10/03/22 hydrocodone-acetaminophen 5-325mg 5mg-325mg 1 tab PO Q6H PRN pain 3 days #12 tabs 10/10/22 lidocaine 5 % topical patch patch topical 01/30/23 hydralazine 50 mg tablet 50 mg PO .QID 3 months #360 tabs 06/05/23 gabapentin 100 mg capsule 200 mg (2 x 100 mg) PO DAILY PRN Neuropathy 3 months #90 caps 06/27/23 pantoprazole 40 mg tablet,delayed release 40 mg PO PRN Indigestion 06/30/23 nifedipine 60 mg tablet,extended release 60 mg PO BID BLOOD PRESSURE 07/16/23 nifedipine 60 mg tablet,extended release 24 hr 60 mg PO BID #60 tabs 07/19/23 Hospital Course Procedures Dialysis, EKG, Transthoracic echo and - (Chest x-ray, CT brain without contrast) Summary of Care Provided Minutes Spent on Discharge: 35 Hospital Course: Patient is an 82-year-old female who presented to [facility] ED on 07/16/2023 with confusion and decreased responsiveness. Hospital course as noted below. Patient discharged to SNF in stable condition on 07/20. 1. Acute metabolic encephalopathy, resolved ? Suspected secondary to hypertensive emergency as noted below. CT brain without contrast on admit nonacute. Improved hospital day 2. Treatment as noted below. 2. Hypertensive emergency Suspected secondary to volume overload with need for increased volume removal with hemodialysis. Chest x-ray on admit nonacute. CT brain nonacute. Echo showed EF 65%, stage I diastolic dysfunction, severe concentric LV hypertrophy, no valve abnormalities. ? Nephrology followed. Treated with Cardene drip on admission with improvement. Dialyzed during admission as noted below. Okay to continue home regimen on discharge of Coreg 12.5 mg twice daily, doxazosin 2 mg twice daily, Lasix 60 mg twice daily, hydralazine 50 mg 4 times daily, nifedipine 60 mg twice daily. 3. Concern for UTI ? UA on admit showed 500 leukocyte esterase, negative nitrates, 1+ bacteria. Urine culture with no growth. Empirically treated with 5-day course of ceftriaxone that was completed while inpatient. 4. ESRD ? Nephrology followed as above. On HD MWF. Last HD session on morning of 07/20 prior to discharge. Chronic medical conditions: ? Hypothyroidism: Continue home Synthroid. ? RA, Sjogren's disease: Stable. Continue home eyedrops. ? History of bladder cancer s/p transurethral resection of bladder tumor: Outpatient follow-up with urology as needed. ? GERD: Continue home PPI. Total clinical time spent by myself addressing the patient's medical issues, reviewing all the data, and collaborating with patient's care team: 35 minutes. Physical Exam Const alert, oriented x3, no apparent distress and well nourished General Appearance: cooperative HEENT normocephalic, head/scalp atraumatic, moist oral mucous membranes and oropharynx normal Eyes PERRL and EOMs intact bilaterally Neck no lymphadenopathy and supple Lymph Lymphatic: no lymphadenopathy noted and no lymphedema noted Resp normal respiratory effort, normal air movement and clear to auscultation bilaterally Cardio regular rate, regular rhythm, S1 normal heart sound, S2 normal heart sound and no murmurs GI normal to inspection, nondistended, normoactive bowel sounds, soft to palpation, non-tender and non-distended Extremity normal capillary refill, no clubbing, cyanosis or edema and no calf tenderness General Extremity: no tenderness to palpation of joints or extremities Skin General Skin Exam: no breakdown Neuro CN's II-XII intact bilaterally, no focal motor deficits, no sensory deficits noted and deep tendon reflexes 2+ bilaterally Motor Exam: strength 5/5 throughout and general weakness Psych thought process normal and cooperative Appearance: appropriate Weight / BMI Weight Weight: 44.2 kg Body Mass Index (BMI) 19.1 ABG / Lab / Microbiology Data 07/21/23 06:17 07/21/23 06:17 Laboratory: Laboratory Results - last 24 hr 07/20/23 11:50: POC Glucose 124 H 07/20/23 17:12: POC Glucose 112 H 07/20/23 21:34: POC Glucose 140 H 07/21/23 06:05: POC Glucose 94 07/21/23 06:17: WBC 6.7, RBC 3.65 L, Hgb 10.3 L, Hct 33.0 L, MCV 90.4, MCH 28.2, MCHC 31.2 L, RDW Std Deviation 56.6 H, RDW Coeff of Wiliam 16.9 H, Plt Count 150, MPV 11.1, Immature Gran % (Auto) 1.100 H, Neut % (Auto) 69.3, Lymph % (Auto) 17.4 L, [place] % (Auto) 9.0, Eos % (Auto) 2.7, Baso % (Auto) 0.5, Absolute Neuts (auto) 4.6, Absolute Lymphs (auto) 1.16, Nucleated RBC % 0, Sodium 134 L, Potassium 4.6, Chloride 101, Carbon Dioxide 22.0, Anion Gap 11, BUN 47 H, Creatinine 7.24 H, Estim Creat Clear Calc 4.23, Est GFR (MDRD) Af Amer 7 L, Est GFR (MDRD) Non-Af 6 L, BUN/Creatinine Ratio 6.5 L, Glucose 103, Calcium 9.2 07/21/23 10:34: POC Glucose 125 H Microbiology: Microbiology 07/15/23 23:28 Blood Culture (Wb) - Right Wrist Blood Culture - Final No growth in 5 days. 07/15/23 23:18 Blood Culture (Wb) - Anticubital Right Blood Culture - Final No growth in 5 days. 07/16/23 00:10 Urine, Clean Catch Urine Culture - Final Culture exhibits no growth. 07/16/23 00:16 Mucosa - Nose SARS-CoV-2, Influenza & RSV (PCR) - Final Meaningful Use Info Meaningful Use Diagnoses (Choose all that apply): None applicable Discharge Plan Admission Admit Date/Time: 07/16/23 01:40 Primary Reason for Your Visit: acute encephalopathy, HTN emergency Attending Provider: León Ye Primary Care Provider: Jacky Morgan Consulting Providers: Anastacia Selby; Shu Ballesteros; Maria Del Rosario Cooper Instructions Patient Instructions: Controlling High Blood Pressure, ED UTIs Women Discharge Orders/Prescriptions Prescriptions: New nifedipine 60 mg Tablet Extended Release 24hr 60 mg PO BID Qty: 60 2RF Continued icosapent ethyl [Vascepa] 1 gram capsule 2 g PO BID Qty: 180 3RF doxazosin [Cardura] 2 mg tablet 2 mg PO BID 90 Days Qty: 180 3RF (DME) Juxta Lite See Rx Instructions .Route .MEDSUPPLY Qty: 2 4RF Rx Instructions: As directed lidocaine 5 % adhesive patch,medicated topical Patient Comments: apply 1 patch to affected area daily hydralazine 50 mg tablet 50 mg PO .QID 90 Days Qty: 360 1RF multivitamin Tablet 1 tab PO DAILY carvedilol 12.5 mg Tablet 12.5 mg PO BID Rx Instructions: must administer with a meal/food famotidine 40 mg Tablet 40 mg PO DAILY Vitamin C 1,000 mg Tablet Extended Release 1,000 mg PO DAILY levothyroxine 25 mcg Tablet 25 mcg PO DAILY folic acid 1 mg Tablet 1 mg PO DAILY Lumigan 0.01 % Drops 1 drp EACH EYE QHS pantoprazole 40 mg tablet,delayed release (DR/EC) 40 mg PO PRN furosemide [Lasix] 40 mg tablet 60 mg PO BID Rx Instructions: q acetaminophen [Tylenol] 325 mg Capsule 650 mg PO QHS hydrocodone-acetaminophen 5-325 mg tablet 1 tab PO Q6H PRN (Reason: pain) 3 Days Qty: 12 0RF nifedipine 60 mg tablet extended release 60 mg PO BID gabapentin 100 mg capsule 200 mg PO DAILY PRN (Reason: Neuropathy) 90 Days Qty: 90 1RF Rx Instructions: Daily Prn Discontinued amlodipine 10 mg tablet 10 mg PO DAILY Referrals / Follow Up: Jacky Morgan MD [Primary Care Provider] - Within 1 Week Disposition Disposition (needs filled in before D/C Order can be placed): [facility] Charges/Coding Visit Charges Inpatient E&M: 69217 Disch Hosp >30min
--- NOTE | 2023-07-21 14:09 | NURSING ---
Report called to Alem at [facility]. Patient to be transported around 1730 by son. Facility aware.
[2023-07-21] MEDS: Heparin Injection (Vial) 5,000 UNIT/ML VIAL 5000 UNIT SC ×2 (14:45→22:09)
[2023-07-21] MEDS: Furosemide 20 MG Tablet 60 MG PO ×2 (14:45→17:06)
[2023-07-21] MEDS: Carvedilol 25 MG Tablet PO ×2 (14:45→17:07)
[2023-07-21] MEDS: Doxazosin 1 MG Tablet 2 MG PO ×2 (14:46→22:10)
[2023-07-21] MEDS: hydrALAZINE 50 MG Tablet PO ×3 (14:46→22:09)
[2023-07-21] MEDS: Pantoprazole Sodium 40 MG Tablet PO (14:46)
[2023-07-21] MEDS: NIFEdipine 60 MG Tablet PO ×2 (14:46→22:09)
--- NOTE | 2023-07-21 15:22 | NURSING ---
Patient noted to have elevated bp again. Patient given IV hydralazine by RN. Will recheck BP in 20 mins
[2023-07-21 16:45] LABS: Bedside Glucose 119 mg/dL (74-106)
--- NOTE | 2023-07-21 17:29 | MRI_ITS ---
STUDY: MRI BRAIN WITHOUT CONTRAST REASON FOR EXAM: Female, 82 years old. CVA rule out TECHNIQUE: Standardized multiplanar fat and water weighted pulse sequences were obtained. COMPARISON: CT of the brain July 15, 2023 FINDINGS: Atrophy and minor periventricular white matter ischemic changes without mass effect or restricted diffusion.. Normal bilateral basal ganglia. Normal thalami. There is no extra-axial fluid accumulation. Normal flow voids within the major intracranial circulation suggesting patency by spin echo criteria. Partial empty sella deformity. Normal, infundibular stalk, optic chiasm and hypothalamus. Normal tectal plate and pineal gland. Normal midbrain, norma and medulla. Normal cerebellum. Normal basal cisterns. Normal bilateral temporal bones. Normal bilateral internal auditory canals. Postsurgical changes of the orbits.. Mild mucosal thickening left maxillary and bilateral ethmoid sinuses. Normal calvarium and skull base. Normal visualized soft tissue structures. Normal visualized upper cervical spine. MRI/Brain without Contrast IMPRESSION: Atrophy and minor periventricular white matter ischemic change without evidence for acute infarct. Electronically Signed: Edmar Zaldivar MD at 19:48 EDT ,
--- NOTE | 2023-07-21 17:30 | PN.HOSP_ITS ---
Reason for Visit Reason for Visit: Diagnoses Encephalopathy, unspecified (07/16/23) Hypertensive emergency (07/16/23) End stage renal disease (07/16/23) Urinary tract infection, site not specified (07/16/23) Dependence on renal dialysis (07/16/23) Subjective Subjective Patient seen at bedside this morning. She was having dialysis on at that time, dialysis nurse present. Patient was laying in bed fairly comfortably and appeared to be making appropriate eye contact with me but was answering questions with only short responses for me. She denied any acute pain or discomfort. No other acute concerns. Objective Data Objective Data Vital Signs: Vital Signs Temp Pulse Resp BP Pulse Ox O2 Del Method 98.2 F 82 12 183/72 H 97 Room Air 07/21/23 16:00 07/21/23 17:07 07/21/23 16:00 07/21/23 17:07 07/21/23 16:00 07/21/23 16:00 Oxygen Delivery Method Room Air Weight: 44.2 kg Body Mass Index (BMI) 19.1 Intake & Output: Intake and Output for Last 24 Hours 07/19/23 07/20/23 07/21/23 23:59 23:59 23:59 Intake Total 1070 / 1070 530 / 530 120 / 120 Output Total 2420 / 2420 Balance 1070 / 1070 530 / 530 -2300 / -2300 Lab / Micro Data 07/21/23 06:17 07/21/23 06:17 Labs: Laboratory Results - last 24 hr 07/20/23 17:12: POC Glucose 112 H 07/20/23 21:34: POC Glucose 140 H 07/21/23 06:05: POC Glucose 94 07/21/23 06:17: WBC 6.7, RBC 3.65 L, Hgb 10.3 L, Hct 33.0 L, MCV 90.4, MCH 28.2, MCHC 31.2 L, RDW Std Deviation 56.6 H, RDW Coeff of Wiliam 16.9 H, Plt Count 150, MPV 11.1, Immature Gran % (Auto) 1.100 H, Neut % (Auto) 69.3, Lymph % (Auto) 17.4 L, [place] % (Auto) 9.0, Eos % (Auto) 2.7, Baso % (Auto) 0.5, Absolute Neuts (auto) 4.6, Absolute Lymphs (auto) 1.16, Nucleated RBC % 0, Sodium 134 L, Potassium 4.6, Chloride 101, Carbon Dioxide 22.0, Anion Gap 11, BUN 47 H, Creatinine 7.24 H, Estim Creat Clear Calc 4.23, Est GFR (MDRD) Af Amer 7 L, Est GFR (MDRD) Non-Af 6 L, BUN/Creatinine Ratio 6.5 L, Glucose 103, Calcium 9.2 07/21/23 10:34: POC Glucose 125 H 07/21/23 16:24: POC Glucose 119 H Micro: Microbiology 07/15/23 23:28 Blood Culture (Wb) - Right Wrist Blood Culture - Final No growth in 5 days. 07/15/23 23:18 Blood Culture (Wb) - Anticubital Right Blood Culture - Final No growth in 5 days. 07/16/23 00:10 Urine, Clean Catch Urine Culture - Final Culture exhibits no growth. 07/16/23 00:16 Mucosa - Nose SARS-CoV-2, Influenza & RSV (PCR) - Final Rhythm Strip Rhythm Strip: Sinus Rhythm Rate: 95 Ectopy: None Physical Exam Const alert and no apparent distress Constitutional Narrative: Elderly female, thin, making appropriate eye contact but appears fatigued and only answering questions with very short responses, otherwise laying fairly comfortably in bed, in no acute distress. General Appearance: cooperative and comfortable HEENT normocephalic, head/scalp atraumatic, hearing grossly normal bilaterally and nasal mucous membranes and turbinates normal Eyes PERRL, EOMs intact bilaterally and conjunctivae normal Neck full ROM Chest inspection of chest normal Resp normal respiratory effort, normal air movement, no use of accessory muscles and clear to auscultation bilaterally Cardio regular rate, regular rhythm, no murmurs and peripheral pulses 2+ throughout GI normal to inspection, nondistended, normoactive bowel sounds, soft to palpation, non-tender and non-distended Back/Spine normal ROM Extremity normal to inspection, full ROM and no pedal edema Skin no rashes or lesions noted Neuro moves all extremities and no focal motor deficits Assessment & Plan Assessment/Plan (1) Hypertensive emergency: (2) Acute encephalopathy: (3) ESRD on dialysis: PLAN: Plan Patient is an 82-year-old female who presented to [facility] ED on 07/16/2023 with confusion and decreased responsiveness. Hospital course as noted below. Patient discharged to SNF in stable condition on 07/20. 1. Acute metabolic encephalopathy, CVA rule out ? Suspected secondary to hypertensive emergency as noted below. CT brain without contrast on admit nonacute. Was noted that this improved back to her baseline by hospital day 2. Plan was to discharge patient to SNF on 07/20. However, discussed with patient's [id number] who is a services account manager in the area over the phone and she noted that the patient was very alert and oriented and even cooking for herself on the day of admission, and she is still significantly worse from her baseline from a mental status standpoint. Given patient's ongoing hypertension despite significant treatment as noted below, w yang order MRI brain for further evaluation of stroke. Stroke protocol also ordered as well. Notably had TTE on 07/15 that was benign. 2. Hypertensive emergency Suspected secondary to volume overload with need for increased volume removal with hemodialysis. Chest x-ray on admit nonacute. CT brain nonacute. Echo showed EF 65%, stage I diastolic dysfunction, severe concentric LV hypertrophy, no valve abnormalities. ? Nephrology followed. Treated with Cardene drip on admission with improvement. Dialyzed during admission as noted below. Was noted the patient's blood pressures had returned to normal on her home regimen, but on 07/20 she continues to have fairly elevated blood pressures despite being back on her home antihypertensive regimen. Stroke protocol ordered as above. Okay to continue home BP medications. 3. Concern for UTI ? UA on admit showed 500 leukocyte esterase, negative nitrates, 1+ bacteria. Urine culture with no growth. Empirically treated with 5-day course of c eftriaxone that was completed. 4. ESRD ? Nephrology following. On HD MWF, last HD session on 07/20. Appreciate nephrology assistance. Chronic medical conditions: ? Hypothyroidism: Continue home Synthroid. ? RA, Sjogren's disease: Stable. Continue home eyedrops. ? History of bladder cancer s/p transurethral resection of bladder tumor: Outpatient follow-up with urology as needed. ? GERD: Continue home PPI. DVT prophylaxis: SCDs CODE STATUS: Full code, unverified Expected disposition: TBD Total clinical time spent by myself addressing the patient's medical issues, reviewing all the data, and collaborating with patient's care team: 35 minutes. Charges/Coding Visit Charges Inpatient E&M: 79736 Subs Hosp L2
--- NOTE | 2023-07-21 17:38 | NURSING ---
Call placed to [facility], Per MD d/c is being postponed due to change in mentation. [facility] notified that patient will not be coming to facility today.
--- NOTE | 2023-07-21 18:29 | NURSING ---
NIHSS not completed when ordered as patient went down for MRI.
[2023-07-21] MEDS: Aspirin 81 MG TAB.CHEW PO (18:55)
[2023-07-21] MEDS: Latanoprost 0.005% 1 Bottle 1 DRP EACH EYE (22:08)
[2023-07-21] MEDS: Ceftriaxone 1 GM/50 ML BAG IV (22:10)
[2023-07-21] MEDS: Insulin Lispro 100 UNIT/ML INSULN.PEN SC (22:10)
[2023-07-21] MEDS: Menthol/Lanolin/Calamine/Znox 113 GM Tube 1 APPLIC TOPICAL (22:45)
[2023-07-21] MEDS: Arthritis Pain Compound 60 CLICK TUBE TOPICAL (22:47)
[2023-07-22] VITALS (9 sets, daily range): BP systolic 132–171; BP diastolic 61–76; PULSE 76–87; RESP 16–18; TEMP 36.4–36.7; O2SAT 98; BMI 19.1
[2023-07-22 00:27] LABS: Bedside Glucose 176 mg/dL (74-106)
[2023-07-22] MEDS: Levothyroxine 25 MCG TABLET PO (06:05)
[2023-07-22 06:32] LABS: Bedside Glucose 99 mg/dL (74-106)
[2023-07-22 07:06] LABS: Absolute Lymphocyte Count 1.09 X10^3/uL (0.83-4.51); Absolute Neutrophil Count 4.6 X10^3/uL (2.0-7.7); Basophil# 0.05 X10^3/uL; Basophil% 0.8 % (0-1); Eosinophil# 0.15 X10^3/uL; Eosinophils% 2.3 % (0-5); Hematocrit 34.8 % (37-47); Hemoglobin 10.9 g/dL (12.0-15.0); Lymphocyte # 1.09 X10^3/ul (0.83-4.51); Lymphocyte % 16.6 % (19-41); Mean Corp Hgb Conc 31.3 g/dL (32-36); Mean Corpuscular Hgb 28.5 pg (27.0-32.0); Mean Corpuscular Volume 90.9 fL (81-99); Mean Platelet Vol. 10.8 fl (6.2-12.0); Monocyte# 0.57 X10^3/uL; Monocyte% 8.7 % (0-10); NRBC Flagged by Analyzer 0 % (0-5); Neutrophil # 4.63 X10^3/uL (2.7-7.7); Neutrophil % 70.5 % (47-70); Platelet Count 179 K/mm3 (150-450); RBC Distribution Width SD 56.7 fl (35.1-43.9); Red Blood Count 3.83 M/mm3 (4.2-5.4); White Blood Count 6.6 K/mm3 (4.4-11.0)
[2023-07-22 08:00] LABS: Anion Gap 11 (5-15); BUN 35 mg/dL (7-18); BUN/Creat Ratio 6.4 RATIO (10-20); Calcium,Total 9.3 mg/dL (8.5-10.1); Chloride 100 mmol/L (98-107); Creatinine, Serum 5.47 mg/dL (0.55-1.02); EST Glomerular Filtration Rate 8 mL/min (>60); Est Glom Filt Rate - Afr Amer 10 mL/min (>60); Estimated Creatinine Clearance 5.44 ml/min; Glucose 99 mg/dL (74-106); Potassium 4.4 mmol/L (3.5-5.1); Sodium Level 133 mmol/L (136-145)
[2023-07-22] MEDS: Carvedilol 25 MG Tablet PO ×2 (08:02→16:05)
[2023-07-22] MEDS: Multivitamins,Therapeutic Tablet 1 TABLET PO (08:02)
[2023-07-22] MEDS: Folic Acid 1 MG Tablet PO (08:03)
[2023-07-22 08:11] LABS: Cholesterol 198 mg/dL (200); High Density Lipoprotein 49 mg/dL; Triglycerides 209 mg/dL; Very Low Density Lipoprotein 42 mg/dL (5-40)
--- NOTE | 2023-07-22 08:54 | CASEMGMT ---
[facility] contacted SW regarding patient not arriving at their facility yesterday as planned. MARYAM apologized no one notified them and let her know what happened. Plan: [facility] when medically ready. Janeth SHEPHERD
[2023-07-22] MEDS: Doxazosin 1 MG Tablet 2 MG PO (10:36)
[2023-07-22] MEDS: Furosemide 20 MG Tablet 60 MG PO (10:36)
[2023-07-22] MEDS: Arthritis Pain Compound 60 CLICK TUBE TOPICAL (10:36)
[2023-07-22] MEDS: NIFEdipine 60 MG Tablet PO (10:36)
[2023-07-22] MEDS: hydrALAZINE 50 MG Tablet PO ×2 (10:36→14:29)
[2023-07-22] MEDS: Pantoprazole Sodium 40 MG Tablet PO (10:36)
[2023-07-22] MEDS: Heparin Injection (Vial) 5,000 UNIT/ML VIAL 5000 UNIT SC (10:37)
[2023-07-22] MEDS: Aspirin 81 MG TAB.CHEW PO (10:42)
[2023-07-22] MEDS: Insulin Lispro 100 UNIT/ML INSULN.PEN SC (11:34)
[2023-07-22 11:55] LABS: Bedside Glucose 254 mg/dL (74-106)
--- NOTE | 2023-07-22 14:26 | CON.PCM.NE_ITS ---
Assessment and Plan: Stroke Assessment/Plan MONA ESTRELLA is a 82 F with a history of UTIs who presents for evaluation of CVA Neurological examination shows some mild confusion. Neuroimaging shows MRI with no acute infarct. Continue current medical management. PT/OT. If BLE continue to be weak, then can get MRI spine. -? General: Laying comfortably in bed; in no acute distress. -? HENT: Normal oropharynx and mucosa. Normal external appearance of ears and nose. Exophthalmos. -? Neck: Supple, no pain or tenderness -? CV:? No peripheral edema. -? Pulmonary:? Normal respiratory effort. -? Ext: No cyanosis, edema, or deformity -? Skin: No rash. Normal palpation of skin.? -? Musculoskeletal: full range of motion; no joint tenderness. Normal digits and nails by inspection. No clubbing. -? NEURO: -? Mental Status: The patient was alert and oriented to time, place, and person. Normal recent/remote memory, concentration, and general fund of knowledge. -? Language: speech is .? Naming, repetition, fluency, and comprehension intact. -? Cranial Nerves: PERRL mm/brisk. EOMI, visual diaz full, no facial asymmetry, facial sensation intact, hearing intact, tongue midline, no e vidence of atrophy or fibrillations. As performed by the nurse/COBY Sternocleidomastoid and trapezius were equally strong. Soft palate raises equally, no uvular deviations -? Motor: normal bulk, tone, and strength throughout. No pronator drift or satelliting. BLE weak 2/5 -? Detailed strength exam as performed by the nurse/COBY and witnessed by the physician: NIH 5 -? Tone: is normal and bulk is normal -? Sensation- Intact to light touch bilaterally -? Coordination: No dysmetria on [id number], finger follow finger or [id number]. -? Gait- Gait initiation was normal. Narrow base with good heel strike and stride length was observed during ambulation. Turns were in stride. Patient was able to walk normally in tandem. Romberg was normal. SL HPI Consult Data Date of Consult: 07/22/23 HPI Narrative HPI Narrative: MONA ESTRELLA, is a 82 F who [facility] Medical History Anemia Arthritis Bilateral lower extremity edema Cancer Cardiomyopathy CKD (chronic kidney disease) stage 5, GFR less than 15 ml/min Gastric reflux Glaucoma Heart failure Heart murmur Hx of fracture of wrist Hyperlipidemia Hypertension Hypothyroidism Kidney failure Lumbar spinal stenosis Macular degeneration Mitral regurgitation Osteoporosis Rheumatoid arthritis Shortness of breath on exertion Sjogren syndrome with inflammatory arthritis Thyroid disease Type 2 diabetes mellitus Vertigo Home Medications ascorbic acid (vitamin C) 1,000 mg tablet,extended release (Vitamin C ER) 1,000 mg PO DAILY 06/13/22 [History Last Taken Unknown] bimatoprost 0.01 % eye drops (Lumigan) 1 drp EACH EYE QHS 06/13/22 [History Last Taken Unknown] carvedilol 12.5 mg tablet 12.5 mg PO BID BLOOD PRESSURE 06/13/22 [History Last Taken 08/22/22 06:00] famotidine 40 mg tablet 40 mg PO DAILY 06/13/22 [History Last Taken Unknown] folic acid 1 mg tablet 1 mg PO DAILY 06/13/22 [History Last Taken Unknown] levothyroxine 25 mcg tablet 25 mcg PO DAILY 06/13/22 [History Last Taken 10/10/22] multivitamin 1 tab PO DAILY 06/13/22 [History Last Taken Unknown] Juxta Lite #2 ea 08/15/22 [Rx Last Taken Unknown] doxazosin 2 mg tablet (Cardura) 2 mg PO BID 3 months #180 tabs 08/15/22 [Rx Last Taken 08/22/22 06:00] furosemide 40 mg tablet (Lasix) 60 mg PO BID 08/15/22 [History Last Taken Unknown] icosapent ethyl 1 gram capsule (Vascepa) 2 g (2 x 1 gram) PO BID #180 caps 08/15/22 [Rx Last Taken Unknown] acetaminophen 325 mg capsule (Tylenol) 650 mg PO QHS 10/03/22 [History Last Taken Unknown] hydrocodone-acetaminophen 5-325mg 5mg-325mg 1 tab PO Q6H PRN pain 3 days #12 tabs 10/10/22 [Rx Last Taken Unknown] lidocaine 5 % topical patch patch topical 01/30/23 [History Last Taken Unknown] hydralazine 50 mg tablet 50 mg PO .QID 3 months #360 tabs 06/05/23 [Rx Last Taken Unknown] gabapentin 100 mg capsule 200 mg (2 x 100 mg) PO DAILY PRN Neuropathy 3 months #90 caps 06/27/23 [Rx Last Taken Unknown] pantoprazole 40 mg tablet,delayed release 40 mg PO PRN Indigestion 06/30/23 [History Last Taken Unknown] nifedipine 60 mg tablet,extended release 60 mg PO BID BLOOD PRESSURE 07/16/23 [History Last Taken Unknown] nifedipine 60 mg tablet,extended release 24 hr 60 mg PO BID #60 tabs 07/19/23 [Rx Last Taken Unknown] Allergy/AdvReac Type Severity Reaction Status Date / Time adalimumab [From Humira] Allergy Hives Verified 06/05/23 13:37 Family History Mother Heart disease Hypertension Osteoporosis Father CVA (cerebral vascular accident) Hypertension Surgical History H/O transurethral resection of bladder tumor (TURBT) History of bladder surgery History of nephrectomy Hx of colonoscopy S/P partial hysterectomy S/P total knee arthroplasty S/P vein stripping Social History household members: family Smoking Status: Never smoker alcohol intake: never substance use type: does not use Vital Signs Vital Signs Vital Signs: 07/21/23 14:46 07/21/23 14:41 07/21/23 15:22 Temperature 97.8 F Temperature Source Oral Pulse Rate 86 86 70 Pulse Strength Respiratory Rate 14 Respiratory Effort Respiratory Depth Respiratory Pattern Blood Pressure 192/86 H 196/80 H Blood Pressure [BP] Blood Pressure Mean 118 Blood Pressure Mean [BP] Blood Pressure Source Monitor Blood Pressure Source [BP] Blood Pressure Position Semi-Fowlers Blood Pressure Position [BP] Blood Pressure Location Right Arm Blood Pressure Location [BP] Pulse Ox 97 Oxygen Delivery Method Room Air 07/21/23 15:57 07/21/23 16:00 07/21/23 17:07 Temperature 98.2 F Temperature Source Oral Pulse Rate 87 70 82 Pulse Strength Respiratory Rate 12 Respiratory Effort Respiratory Depth Respiratory Pattern Blood Pressure 196/90 H 183/72 H Blood Pressure [BP] 192/90 H Blood Pressure Mean 125 Blood Pressure Mean [BP] 124 Blood Pressure Source Monitor Blood Pressure Source [BP] Monitor Blood Pressure Position Semi-Fowlers Blood Pressure Position [BP] Semi-Fowlers Blood Pressure Location Right Arm Blood Pressure Location [BP] Right Arm Pulse Ox 97 Oxygen Delivery Method Room Air 07/21/23 18:00 07/21/23 19:01 07/21/23 22:09 Temperature 98 F Temperature Source Oral Pulse Rate 72 76 Pulse Strength Respiratory Rate 14 Respiratory Effort Normal Non-Labored Respiratory Depth Respiratory Pattern Blood Pressure 183/70 H 156/59 H Blood Pressure [BP] Blood Pressure Mean 107 Blood Pressure Mean [BP] Blood Pressure Source Monitor Blood Pressure Source [BP] Blood Pressure Position Semi-Fowlers Blood Pressure Position [BP] Blood Pressure Location Right Arm Blood Pressure Location [BP] Pulse Ox 98 Oxygen Delivery Method Room Air 07/21/23 23:00 07/21/23 22:00 07/22/23 00:00 Temperature 98.1 F Temperature Source Temporal Pulse Rate 76 Pulse Strength Normal (2+) Respiratory Rate 18 Respiratory Effort Normal Respiratory Depth Normal Respiratory Pattern Normal Blood Pressure 156/59 H Blood Pressure [BP] Blood Pressure Mean 91 Blood Pressure Mean [BP] Blood Pressure Source Monitor Blood Pressure Source [BP] Blood Pressure Position Semi-Fowlers Blood Pressure Position [BP] Blood Pressure Location Right Arm Blood Pressure Location [BP] Pulse Ox 97 Oxygen Delivery Method Room Air Room Air 07/22/23 03:00 07/22/23 04:08 07/22/23 06:23 Temperature 97.9 F 97.9 F Temperature Source Temporal Temporal Pulse Rate 79 84 Pulse Strength Respiratory Rate 18 18 Respiratory Effort Normal Respiratory Depth Normal Respiratory Pattern Normal Blood Pressure 132/61 H 149/73 H Blood Pressure [BP] Blood Pressure Mean 84 98 Blood Pressure Mean [BP] Blood Pressure Source Monitor Monitor Blood Pressure Source [BP] Blood Pressure Position Semi-Fowlers Semi-Fowlers Blood Pressure Position [BP] Blood Pressure Location Right Arm Right Arm Blood Pressure Location [BP] Pulse Ox 98 98 Oxygen Delivery Method Room Air Room Air Room Air 07/22/23 07:52 07/22/23 07:53 07/22/23 08:00 Temperature Temperature Source Pulse Rate 87 Pulse Strength Normal (2+) Respiratory Rate Respiratory Effort Normal Respiratory Depth Normal Respiratory Pattern Normal Blood Pressure Blood Pressure [BP] 161/71 H Blood Pressure Mean Blood Pressure Mean [BP] 101 Blood Pressure Source Blood Pressure Source [BP] Blood Pressure Position Blood Pressure Position [BP] Blood Pressure Location Blood Pressure Location [BP] Pulse Ox Oxygen Delivery Method Room Air 07/22/23 10:31 07/22/23 10:36 07/22/23 14:26 Temperature 97.5 F L Temperature Source Temporal Pulse Rate 86 86 87 Pulse Strength Respiratory Rate 18 Respiratory Effort Respiratory Depth Respiratory Pattern Blood Pressure 158/75 H Blood Pressure [BP] 135/76 H Blood Pressure Mean 102 Blood Pressure Mean [BP] 95 Blood Pressure Source Monitor Blood Pressure Source [BP] Monitor Blood Pressure Position Semi-Fowlers Blood Pressure Position [BP] Semi-Fowlers Blood Pressure Location Right Arm Blood Pressure Location [BP] Right Arm Pulse Ox 98 Oxygen Delivery Method Room Air Weight Weight: 44.2 kg Body Mass Index (BMI) 19.1 EEG Results Procedure Details EEG Procedure Details: MONA ESTRELLA is a 82 year old F with a past medical history of , who presents for evaluation of Electroencephalogram on DATE at TIME NIHSS NIHSS Nursing Documentation NIHSS Nursing Documentation: NIHSS: Ischemic Stroke/TIA Start: 07/21/23 17:37 Text: For PCU Patients: NIH and Neuro Check every 4 Status: Complete hours and PRN Freq: Q4H Protocol: Activity Type Activity Date Activity User E-sign Co-sign Detail Recorded Client Recorded Date Recorded By Document 07/22/23 06:26 [id number] 07/22/23 06:27 07/22/23 06:26 NIH Stroke Scale [NIHSS] A score of 0 is normal or asymptomatic . Total possible score is 42. Inpatient: RN or Physician to activate a stroke alert for onset of new stroke symptoms or with NIHSS increase >/= 3 points. Following change in neurological status, NIHSS will be performed per physician order or more frequently PRN. -1a. Level of Consciousness Alert; keenly responsive -1b. LOC Questions Answers one question correctly. -1c. LOC Commands Performs both tasks correctly . -2. Best Gaze Normal -3. Visual No visual loss -4. Facial Palsy Normal symmetrical movements -5a. Left Arm No drift; arm holds 90 (or 45 ) degrees for full 10 seconds -5b. Right Arm No drift; arm holds 90 (or 45 ) degrees for full 10 seconds -6a. Left Leg Drift; leg falls by the end of 5- seconds, but does not hit bed -6b. Right Leg Drift; leg falls by the end of 5- seconds, but does not hit bed -7. Limb Ataxia Absent -8. Sensory Normal; no sensory loss -9. Best Language No aphasia; normal -10. Dysarthria Normal -11. Extinction and Inattention No abnormality -Total 3 Query Text:A score of 0 is normal or asymptomatic. Total possible score is 42 . ED: Notify Physician for NIHSS increase by > / = 3 points. Inpatient: RN or Physician to activate a stroke alert for NIHSS increase of > / = 3 points. Coma Scale [Assess] -Eye Opening Spontaneous -Motor Obeys Commands -Verbal Confused [Total] -Coma Scale Total 14 Lab / Micro Data 07/22/23 06:25 07/22/23 06:25 Labs: Laboratory Results - last 24 hr 07/21/23 16:24: POC Glucose 119 H 07/21/23 22:02: POC Glucose 176 H 07/22/23 06:04: POC Glucose 99 07/22/23 06:25: WBC 6.6, RBC 3.83 L, Hgb 10.9 L, Hct 34.8 L, MCV 90.9, MCH 28.5, MCHC 31.3 L, RDW Std Deviation 56.7 H, RDW Coeff of Wiliam 17.0 H, Plt Count 179, MPV 10.8, Immature Gran % (Auto) 1.100 H, Neut % (Auto) 70.5 H, Lymph % (Auto) 16.6 L, [place] % (Auto) 8.7, Eos % (Auto) 2.3, Baso % (Auto) 0.8, Absolute Neuts (auto) 4.6, Absolute Lymphs (auto) 1.09, Nucleated RBC % 0, Sodium 133 L, Potassium 4.4, Chloride 100, Carbon Dioxide 22.0, Anion Gap 11, BUN 35 H, Creatinine 5.47 H, Estim Creat Clear Calc 5.44, Est GFR (MDRD) Af Amer 10 L, Est GFR (MDRD) Non-Af 8 L, BUN/Creatinine Ratio 6.4 L, Glucose 99, Calcium 9.3, Triglycerides 209 H, Cholesterol 198, LDL Cholesterol 107, VLDL Cholesterol 42 H , HDL Cholesterol 49 07/22/23 11:33: POC Glucose 254 H Rhythm Strip Rhythm Strip: Sinus Rhythm Rate: 95 Ectopy: None Imaging Radiology Impression Brain MRI 07/21/23 17:29 IMPRESSION: Atrophy and minor periventricular white matter ischemic change without evidence for acute infarct. Electronically Signed: Edmar Zaldivar MD at 19:48 EDT Reading Location ID and State: [facility] / MD Tel , Service support , Active Medications Active Medications Active Medications: Current Medications Generic Name Dose Route Start Last Admin Trade Name Freq PRN Reason Stop Dose Admin Acetaminophen 650 mg 07/16/23 02:41 07/20/23 20:23 Acetaminophen 325 Mg Tablet PO 650 mg Q4H PRN PRN Administration Fever, pain 1-10 Al Hydroxide/Mg Hydroxide 30 ml 07/16/23 02:41 Mag Hydrox/Al Hydrox/Simeth 30 Ml Udc PO Q6H PRN PRN Gastric Burning Albuterol Sulfate 2.5 mg 07/16/23 02:41 Albuterol 2.5 Mg/3 Ml Vial.Neb. INHALATION Q2H PRN PRN Dyspnea, wheezing Aspirin 81 mg 07/21/23 17:45 07/22/23 10:42 Aspirin 81 Mg Tab.Chew PO 81 mg [facility] Administration Calamine/Phenol 1 applic 07/16/23 10:00 07/22/23 10:36 Menthol/Lanolin/Calamine/Znox 113 Gm Tube TOPICAL Not Given 4X/DAY HOWARD Protocol Carvedilol 25 mg 07/20/23 08:00 07/22/23 08:02 Carvedilol 25 Mg Tablet PO 25 mg BIDCM HOWARD Administration Protocol Chlorhexidine Gluconate 1 each 07/16/23 10:00 07/22/23 07:59 Chlorhexidine Gluc 2% Cloth 1 Each [place] TOPICAL Not Given DAILY HOWARD Compound Med 2 click 07/17/23 22:26 07/22/23 10:36 Arthritis Pain Compound 60 Click Tube TOPICAL 2 click BID HOWARD Administration Protocol Dextrose 0 gm 07/16/23 02:41 Dextrose 50%-Water 25 Gm/50 Ml Disp.Syrin IV X1 PRN HYPOGLYCEMIA Protocol Doxazosin Mesylate 2 mg 07/16/23 10:00 07/22/23 10:36 Doxazosin 1 Mg Tablet PO 2 mg BID HOWARD Administration Folic Acid 1 mg 07/16/23 08:00 07/22/23 08:03 Folic Acid 1 Mg Tablet PO 1 mg DAILYCM HOWARD Administration Furosemide 60 mg 07/16/23 10:00 07/22/23 10:36 Furosemide 20 Mg Tablet PO 60 mg BIDLX HOWARD Administration Protocol Glucagon 1 mg 07/16/23 02:41 Glucagon 1 Mg/Ml Syringe IM X1 PRN HYPOGLYCEMIA Guaifenesin 10 ml 07/16/23 02:41 Guaifenesin 10 Ml Udc (200mg/10ml) PO Q4H PRN PRN COUGH Heparin Sodium (Porcine) 5,000 unit 07/16/23 10:00 07/22/23 10:37 Heparin Injection (Vial) 5,000 Unit/Ml Vial SC 5,000 unit Q12 HOWARD Administration Hydralazine HCl 50 mg 07/16/23 10:00 07/22/23 10:36 Hydralazine 50 Mg Tablet PO 50 mg 4X/DAY HOWARD Administration Protocol Hydralazine HCl 5 mg 07/21/23 17:37 Hydralazine 20 Mg/Ml Vial IV Q30M PRN to maintain BP goals Sodium Chloride 250 mls @ 15 mls/hr 07/16/23 02:43 IV .[id number] PRN Additional IVPB Infusion Sodium Chloride 250 mls @ 15 mls/hr 07/16/23 02:43 IV .[id number] PRN Saline Flush Insulin Human Lispro 0 unit 07/16/23 07:00 07/22/23 11:34 Insulin Lispro 100 Unit/Ml Insuln.Pen SC 3 u ACHS HOWARD Administration Protocol Labetalol HCl 10 - 20 mg 07/21/23 17:37 Labetalol (Prefilled) 20 Mg/4 Ml IV Q10M PRN PRN to Maintain BP Goals Latanoprost 1 drp 07/16/23 22:00 07/21/23 22:08 Latanoprost 0.005% 1 Bottle EACH EYE 1 drp QHS HOWARD Administration Levothyroxine Sodium 25 mcg 07/16/23 06:00 07/22/23 06:05 Levothyroxine 25 Mcg Tablet PO 25 mcg 0600 HOWARD Administration Lidocaine 1 patch 07/16/23 10:00 07/22/23 10:36 Lidocaine 5% Patch TOPICAL Not Given DAILY HOWARD Protocol Melatonin 3 mg 07/16/23 02:41 07/19/23 23:46 Melatonin 3 Mg Tablet PO 3 mg QHS PRN PRN Administration INSOMNIA Multivitamins 1 tablet 07/16/23 08:00 07/22/23 08:02 Multivitamins,Therapeutic Tablet PO 1 tablet DAILYCM HOWARD Administration Nifedipine 60 mg 07/16/23 10:00 07/22/23 10:36 Nifedipine 60 Mg Tablet PO 60 mg BID HOWARD Administration Protocol Ondansetron HCl 4 mg 07/16/23 02:41 Ondansetron 4 Mg/2 Ml Vial IV Q8H PRN PRN NAUSEA/VOMITING Pantoprazole Sodium 40 mg 07/16/23 10:00 07/22/23 10:36 Pantoprazole Sodium 40 Mg Tablet PO 40 mg DAILY HOWARD Administration Prochlorperazine Edisylate 5 mg 07/16/23 02:41 Prochlorperazine 10 Mg/2 Ml Vial IV Q4H PRN PRN Breakthrough Nausea/Vomiting Senna/Docusate Sodium 2 tablet 07/16/23 02:41 Senna/Docusate Sodium 1 Tablet PO BID PRN PRN Constipation Sodium Chloride 10 - 40 ml 07/16/23 02:43 07/21/23 06:01 0.9% Saline Lock 10 Ml Syringe IV 10 ml UD PRN Administration SALINE FLUSH
--- NOTE | 2023-07-22 15:39 | CASEMGMT ---
Patient is ready for discharge to [facility] today. The discharge orders are the same as yesterday's orders that were sent to [facility]. SW spoke with patient's son Jabier and originally he was going to transport patient. However patient is now requiring much more assistance than previously so it was decided to send patient by cot. MARYAM asked Chiara to set up transport for patient. Plan: d/c to [facility] under skilled level of care on a PASRR. Physicians will transport patient. Janeth SHEPHERD
--- NOTE | 2023-07-22 15:40 | NURSING ---
Report called to [facility] to nurse Eleni
--- NOTE | 2023-07-22 15:43 | CASEMGMT ---
Discharge Planning Transport time sent to [facility] via [facility]. Physicians will transport patient by cot at 6p. SW and patients son (Jabier) updated. Chiara Hopkins, Discharge Planning Asst.
== END 2023-07-22 17:44 | disposition skilled nursing facility (03) | DRG 640 ==
LOC: ED 07-16 01:14 → ICU 07-16 01:56 → PCU 07-17 17:15
PROVIDERS: Internal Medicine Critical Care Medicine; Student in an Organized Health Care Education/Training Program; Admitting Provider Family Medicine; Emergency Provider Emergency Medicine; PCP Internal Medicine; Visit Provider Hospitalist
DX: E87.70 Fluid overload, unspecified (principal); N18.6 End stage renal disease; G93.41 Metabolic encephalopathy; I13.2 Hypertensive heart and chronic kidney disease with heart failure and with stage 5 chronic kidney disease, or end stage renal disease; I42.9 Cardiomyopathy, unspecified; I50.32 Chronic diastolic (congestive) heart failure; I16.1 Hypertensive emergency; N39.0 Urinary tract infection, site not specified; D63.8 Anemia in other chronic diseases classified elsewhere; E11.39 Type 2 diabetes mellitus with other diabetic ophthalmic complication; E11.22 Type 2 diabetes mellitus with diabetic chronic kidney disease; M06.4 Inflammatory polyarthropathy; E03.9 Hypothyroidism, unspecified; Z99.2 Dependence on renal dialysis; E78.5 Hyperlipidemia, unspecified; H35.30 Unspecified macular degeneration; K21.9 Gastro-esophageal reflux disease without esophagitis; M35.00 Sjogren syndrome, unspecified; H40.9 Unspecified glaucoma; Z82.3 Family history of stroke; Z85.51 Personal history of malignant neoplasm of bladder; Z87.440 Personal history of urinary (tract) infections
CPT/HCPCS: 36415; 36600; 70450; 70551; 71045; 80048; 80053; 80061; 80320; 81001; 82140; 82803; 82962; 83605; 83735; 84443; 84484; 85025; 87040; 87086; 87631; 90937; 93005; 93306; 94668; 97110; 97116; 97162; 97166; 97530; 97535; 99285; J7030; J7040; J7050; A4216; G0257; G0480

== ENCOUNTER 2023-08-04 11:52 | Emergency (ER) | payer MEDICARE, OTHER, SELFPAY ==
[2023-08-04] VITALS (10 sets, daily range): BP systolic 151–226; BP diastolic 59–142; PULSE 82–99; RESP 16–23; TEMP 36.4–37; O2SAT 95–100; BMI 21.4
--- NOTE | 2023-08-04 12:20 | CT_ITS ---
STUDY: CT BRAIN WITHOUT CONTRAST REASON FOR EXAM: Female, 82 years old. head trauma, AMS RADIATION DOSAGE (If Supplied By Facility): CTDIvol = ( 47.06 ) mGy, DLP = ( 855.03 ) mGycm TECHNIQUE: Transaxial CT imaging of the brain was performed without administration of intravenous contrast material. Individualized dose optimization techniques were used for this CT. COMPARISON: Head CT dated July 15, 2023 FINDINGS: Normal soft tissue structures. Normal calvarium. No visualized skull fracture or pneumocephalus or subdural hemorrhage or midline shift. There is mild cerebral atrophy with widening of the extra-axial spaces and ventricular dilatation. There are areas of decreased attenuation within the white matter tracts of the supratentorial brain, consistent with microvascular disease changes. Normal basal ganglia and thalami. Normal brainstem. Normal cerebellum. There is no intracranial hemorrhage. There are no findings of an acute ischemic infarction. Normal visualized paranasal sinuses. CT/Brain/Head without Contrast IMPRESSION: 1. Chronic involutional changes of the brain. 2. No visualized skull fracture or pneumocephalus or subdural hemorrhage or midline shift. Electronically Signed: Idris Traore MD at 13:23 EDT ,
--- NOTE | 2023-08-04 12:20 | EKG12_ITS ---
Test Reason : ALT LOC Blood Pressure : / mmHG Vent. Rate : 091 BPM Atrial Rate : 091 BPM P-R Int : 182 ms QRS Dur : 080 ms QT Int : 360 ms P-R-T Axes : 066 025 060 degrees QTc Int : 442 ms Normal sinus rhythm Possible Left atrial enlargement Septal infarct , age undetermined Abnormal ECG Confirmed by John Paul Oconnor ([id number]), department editor YE PAYAN ([id number]) on 08/06/2023 5:43:16 AM Referred By: Confirmed By:John Paul Oconnor
--- NOTE | 2023-08-04 12:20 | CT_ITS ---
STUDY: CT CERVICAL SPINE WITHOUT CONTRAST REASON FOR EXAM: Female, 82 years old. trauma, neck pain RADIATION DOSAGE (If Supplied By Facility): CTDIvol = ( 16.81 ) mGy, DLP = ( 323.85 ) mGycm TECHNIQUE: High resolution transaxial imaging was performed without contrast material. Sagittal and coronal images were reconstructed. Individualized dose optimization techniques were used for this CT. COMPARISON: None FINDINGS: Normal craniovertebral junction. Normal anterior atlantoaxial articulation. Normal odontoid process. There is reversal of the normal cervical lordosis. No demonstrated acute fracture or compression deformity or displaced fragment. No demonstrated jumped facets. Moderate multilevel degenerative changes are present. No significant central canal stenosis is seen. . Normal visualized soft tissue structures. CT/Spine Cervical without Contras IMPRESSION: Multilevel degenerative changes, as described above. Electronically Signed: Idris Traore MD at 13:20 EDT ,
--- NOTE | 2023-08-04 12:40 | RAD_ITS ---
STUDY: X-RAY CHEST REASON FOR EXAM: Female, 82 years old. Fall, AMS TECHNIQUE: Single AP portable view of the chest. COMPARISON: Comparison is made with prior study dated July 15, 2023. FINDINGS: EKG electrodes are seen. The lungs are clear and expanded. There is no demonstrated pleural abnormality. There is mild cardiac enlargement. Normal mediastinum and vidal. Normal visualized pulmonary arteries. There is atherosclerotic calcification of the aortic arch with tortuosity. There are degenerative changes of the visualized thoracic spine. There is degenerative osteoarthritis of the bilateral shoulders. There is no demonstrated abnormality of the visualized soft tissue structures of the upper abdomen. RAD/Chest 1 View (Portable) IMPRESSION: Mild cardiomegaly. No acute abnormality is seen. Electronically Signed: Horacio Sanchez MD at 12:54 EDT ,
--- NOTE | 2023-08-04 12:40 | RAD_ITS ---
STUDY: X-RAY - PELVIS REASON FOR EXAM: Female, 82 years old. Trauma TECHNIQUE: One view of the pelvis was obtained. COMPARISON: None. FINDINGS: There is a non-specific bowel gas pattern. Normal visualized soft tissue structures. There is narrowing with cortical sclerosis and osteophyte formation of the sacroiliac joint consistent with degenerative osteoarthritic changes. Normal visualized bilateral superior and inferior pubic rami. There is narrowing with sclerosis of the pubic symphysis. Normal ischial tuberosities. Normal visualized right femoral head. There is osteoarthritic spur formation of the right acetabular rim. There is moderate articular joint space narrowing of the right hip. Normal visualized left femoral head. There is osteoarthritic spur formation of the left acetabular rim. There is moderate articular joint space narrowing of the left hip. RAD/Pelvis 1 or 2 Views IMPRESSION: Degenerative changes. No fracture is seen. Electronically Signed: Horacio Sanchez MD at 12:54 EDT ,
[2023-08-04 12:44] LABS: Absolute Lymphocyte Count 0.66 X10^3/uL (0.83-4.51); Absolute Neutrophil Count 5.1 X10^3/uL (2.0-7.7); Basophil# 0.04 X10^3/uL; Basophil% 0.6 % (0-1); Eosinophil# 0.15 X10^3/uL; Eosinophils% 2.4 % (0-5); Hematocrit 33.4 % (37-47); Hemoglobin 10.9 g/dL (12.0-15.0); Lymphocyte # 0.66 X10^3/ul (0.83-4.51); Lymphocyte % 10.4 % (19-41); Mean Corp Hgb Conc 32.6 g/dL (32-36); Mean Corpuscular Hgb 28.9 pg (27.0-32.0); Mean Corpuscular Volume 88.6 fL (81-99); Monocyte# 0.32 X10^3/uL; NRBC Flagged by Analyzer 0 % (0-5); Neutrophil # 5.09 X10^3/uL (2.7-7.7); Neutrophil % 80.2 % (47-70); POSITIVE COUNT YES; Platelet Count 95 K/mm3 (150-450); RBC Distribution Width CV 16.5 % (11.6-14.6); RBC Distribution Width SD 54.3 fl (35.1-43.9); Red Blood Count 3.77 M/mm3 (4.2-5.4); White Blood Count 6.4 K/mm3 (4.4-11.0)
[2023-08-04 12:45] LABS: Differential Indicated SCAN CRITERIA MET
[2023-08-04 12:49] LABS: International Normalized Ratio 1.1; Prothrombin Time (Protime)PT. 13.7 SECONDS (11.7-14.9)
--- NOTE | 2023-08-04 12:59 | ED.VIS.FALL ---
HPI HPI - Fall History of Present Illness Chief Complaint: Fall Informant: patient, family and EMS Narrative Narrative: Patient is an 82-year-old female with history of type 2 diabetes mellitus, incisional disease on hemodialysis (last had dialysis today), cardiomyopathy, hypertension and recent admission/discharge for altered mental status and urinary tract infection presenting for evaluation after fall and progressively worsening confusion. Per EMS reports patient was found on the ground at nursing facility. She had an unwitnessed fall. She did sustain injury to her scalp from this fall. Patient is unable to tell if she has any pain or contribute to HPI. I spoke with her [id number] on the phone who states up until couple weeks ago patient was cooking, managing finances and living at home independently. 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 She is not sure if this is associated with her uremia, recent UTI or something else. She would like her evaluated further for this. Patient apparently did have hemodialysis this morning. Her manager of compliance currently is Dr. Ballesteros. She also notes that the family did take her home yesterday and she was very weak. She was frail sin at time of ce discharge but has rapidly progressed since her discharge on 07/21/2023 per [id number]. Discharge summary from 07/21/2023 independently reviewed which shows that patient was admitted on 07/15 through 07/20 for acute metabolic encephalopathy secondary to hypertensive emergency as well as urinary tract infection however urine culture was ultimately negative. Patient had been treated with 5-day course of Rocephin. [facility] Medical History Anemia Arthritis Bilateral lower extremity edema Cancer Cardiomyopathy CKD (chronic kidney disease) stage 5, GFR less than 15 ml/min ESRD on dialysis Gastric reflux Glaucoma Heart failure Heart murmur Hx of fracture of wrist Hyperlipidemia Hypertension Hypothyroidism Kidney failure Lumbar spinal stenosis Macular degeneration Mitral regurgitation Osteoporosis Rheumatoid arthritis Shortness of breath on exertion Sjogren syndrome with inflammatory arthritis Thyroid disease Type 2 diabetes mellitus Vertigo Home Medications ascorbic acid (vitamin C) 1,000 mg tablet,extended release (Vitamin C ER) 1,000 mg PO DAILY supplement 06/13/22 [History Last Taken Unknown] bimatoprost 0.01 % eye drops (Lumigan) 1 drp EACH EYE QHS eye drop 06/13/22 [History Last Taken Unknown] carvedilol 12.5 mg tablet 12.5 mg PO BID BLOOD PRESSURE 06/13/22 [History Last Taken 08/22/22 06:00] famotidine 40 mg tablet 40 mg PO DAILY stomach 06/13/22 [History Last Taken Unknown] folic acid 1 mg tablet 1 mg PO DAILY supplement 06/13/22 [History Last Taken Unknown] levothyroxine 25 mcg tablet 25 mcg PO DAILY thryoid 06/13/22 [History Last Taken 10/10/22] multivitamin 1 tab PO DAILY supplement 06/13/22 [History Last Taken Unknown] Juxta Lite #2 ea 08/15/22 [Rx Last Taken Unknown] doxazosin 2 mg tablet (Cardura) 2 mg PO BID 3 months #180 tabs 08/15/22 [Rx Last Taken 08/22/22 06:00] furosemide 40 mg tablet (Lasix) 60 mg PO BID water pill 08/15/22 [History Last Taken Unknown] icosapent ethyl 1 gram capsule (Vascepa) 2 g (2 x 1 gram) PO BID #180 caps 08/15/22 [Rx Last Taken Unknown] acetaminophen 325 mg capsule (Tylenol) 650 mg PO QHS pain 10/03/22 [History Last Taken Unknown] lidocaine 5 % topical patch 1 patch topical Q24H pain patch 01/30/23 [History Last Taken Unknown] hydralazine 50 mg tablet 50 mg PO .QID 3 months #360 tabs 06/05/23 [Rx Last Taken Unknown] gabapentin 100 mg capsule 200 mg (2 x 100 mg) PO DAILY PRN Neuropathy 3 months #90 caps 06/27/23 [Rx Last Taken Unknown] pantoprazole 40 mg tablet,delayed release 40 mg PO PRN Indigestion 06/30/23 [History Last Taken Unknown] nifedipine 60 mg tablet,extended release 60 mg PO BID BLOOD PRESSURE 07/16/23 [History Last Taken Unknown] nifedipine 60 mg tablet,extended release 24 hr 60 mg PO BID #60 tabs 07/19/23 [Rx Last Taken Unknown] amlodipine 10 mg tablet 10 mg PO DAILY blood pressure 07/22/23 [History Last Taken Unknown] Allergy/AdvReac Type Severity Reaction Status Date / Time beef derived (bovine) Allergy Unknown PT UNABLE Verified 08/04/23 12:00 TO RESPOND-NEEDS F/U Pork/Porcine Containing Allergy Unknown PT UNABLE Verified 08/04/23 12:00 Products TO RESPOND-NEEDS F/U adalimumab [From Humira] Allergy Hives Verified 08/04/23 12:00 Family History Mother Heart disease Hypertension Osteoporosis Father CVA (cerebral vascular accident) Hypertension Surgical History H/O transurethral resection of bladder tumor (TURBT) History of bladder surgery History of nephrectomy Hx of colonoscopy S/P partial hysterectomy S/P total knee arthroplasty S/P vein stripping Social History household members: family Smoking Status: Never smoker alcohol intake: never substance use type: does not use ROS ROS ED Review of Systems ROS Unobtainable: due to mental status EXAM Physical Exam Const Vital Signs: 08/04/23 11:53 08/04/23 13:35 08/04/23 13:30 Temperature 97.5 F L Temperature Source Temporal Pulse Rate 91 92 Respiratory Rate 16 23 H Respiratory Effort Normal Non-Labored Respiratory Depth Normal Respiratory Pattern Normal Blood Pressure 151/63 H 189/85 H Blood Pressure Mean 92 113 Pulse Ox 97 98 Oxygen Delivery Method Room Air Room Air 08/04/23 14:15 08/04/23 15:15 Temperature Temperature Source Pulse Rate 82 97 Respiratory Rate 20 H 19 H Respiratory Effort Respiratory Depth Respiratory Pattern Blood Pressure 180/59 H 187/75 H Blood Pressure Mean 94 108 Pulse Ox 100 Oxygen Delivery Method Negative for unkempt Constitutional Narrative: Frail General Appearance ED: NAD; Negative for unkempt HEENT Reports TM's normal bilaterally HEENT Narrative: Abrasion and contusion to left posterior scalp?occiput trauma; Negative for hematoma Eyes PERRL and EOMs intact bilaterally Neck supple Neck Narrative: Patient seems a diffuse tenderness to the cervical spine. Does not seem to localize. No obvious step-off. General: tenderness Chest Wall inspection of chest normal and palpation of chest normal Resp normal respiratory effort and clear to auscultation bilaterally Cardio regular rate and regular rhythm Cardio Narrative: AV fistula in left upper extremity with thrill present GI non-tender and non-distended Auscultation: normoactive bowel sounds Palpation: soft; Negative for guarding or rebound tenderness present Back/Spine Lumbar Spine / Lower Back: Negative for lumbar spinal tenderness Extremity Extremity Narrative: No obvious deformity. No pinpoint bony tenderness. Pelvis is stable. Normal range of motion of the lower extremities. No perceived pain with logroll. Neuro Erving Coma Scale: document GCS findings Spontaneous Localizes to Pain Confused 13 Sensorium / Orientation: orientation impaired and confused Motor Exam: general weakness Psych Appearance: Negative for unkempt Skin Trauma: abrasion MDM MDM MDM Narrative Medical decision making narrative: Patient is evaluated for unwitnessed fall. Does have a small contusion to the back of her scalp. CT of the brain and C-spine does not show any acute intracranial process or neck fracture. Patient's blood pressure is mildly elevated but appears to be at her baseline. Metabolic and trauma workup is obtained as well as looking for additional cause of her increased somnolence/mental status change. Workup is largely unremarkable however or at her baseline. Patient does not have an acute anemia or leukocytosis just infection. Her platelets are mildly low but again this is chronic. Lab work from prior to dialysis does show mild hyperkalemia and a significantly elevated BUN and creatinine however this is repeated since patient had dialysis this morning and patient's potassium is now normal at 4.5. She has improved but continually elevated BUN and creatinine which is consistent with her end-stage renal disease. She is not having significant electrolyte abnormalities. Her high sensitive troponin is only 45 and I do not think there is a primary ACS event going on. EKG is nonischemic. Urinalysis does show signs of infection with 10-25 white blood cells with rare bacteria and 100 leukocyte esterase however there are no nitrates. Will send for culture and give a dose of IV Rocephin in the emergency room. Prior urine culture was ultimately contaminant and negative. Chest x-ray as well as pelvic x-ray viewed by myself as well as radiology does not show any acute abnormalities. Case discussed with hospitalist as family is concerned about her continued mental status declining. Discussed that she had a teleneurology evaluation as well as MRI of the brain on her last admission and further testing such as lumbar puncture, continue oral EEG or in person neurology consult is not available at our facility. Family would like further evaluation and to know if there is something reversible that they can treat/cause versus this is what it is with her mental status at this point especially since she has had such steep decline. Initially request [facility] however after discussing with the transfer line he did not have any beds available and do not even have a wait list option. I will then reach out to [facility]. Anticipate patient will be transferred for further evaluation of her continued mental status change. Patient is hypertensive in the emergency room around 180 systolic sustained. Is given initially 10 mg IV hydralazine and then 20 mg IV labetalol for blood pressure control. At this time I do not think her blood pressure is so high that this is causing her mental status change. Patient's [id number] is updated on plan of care. She prefers her to be at a facility that does have inpatient neurology with this is [facility] versus [facility]. Patient is excepted at [facility]. Accepting physician is Dr. Villalobos. Case is discussed with him. History & Record Review Discussion w/independent historian: EMS personnel and Family Additional record(s) reviewed:: Prior inpatient record (See HPI) Lab Data Attestation: I reviewed the patient's lab results. Labs: Laboratory Results - last 24 hr 08/04/23 08/04/23 12:32 13:30 WBC 6.4 RBC 3.77 L Hgb 10.9 L Hct 33.4 L MCV 88.6 MCH 28.9 MCHC 32.6 RDW Std Deviation 54.3 H RDW Coeff of Wiliam 16.5 H Plt Count 95 L MPV 10.0 Immature Gran % (Auto) 1.400 H Neut % (Auto) 80.2 H Lymph % (Auto) 10.4 L Elliott % (Auto) 5.0 Eos % (Auto) 2.4 Baso % (Auto) 0.6 Absolute Neuts (auto) 5.1 Absolute Lymphs (auto) 0.66 L Nucleated RBC % 0 Differential Comment SCANNED Platelet Estimate MOD DEC PT 13.7 INR 1.1 Sodium 132 L Potassium 4.5 Chloride 95 L Carbon Dioxide 27.0 BUN 36 H Creatinine 4.11 H Estim Creat Clear Calc 7.45 Est GFR (MDRD) Af Amer 13 L Est GFR (MDRD) Non-Af 11 L BUN/Creatinine Ratio 8.8 L Glucose 190 H Calcium 9.4 Phosphorus 3.6 Total Bilirubin 0.30 Direct Bilirubin 0.07 AST 19 ALT 17 Alkaline Phosphatase 76 Ammonia < 10.0 L Total Creatine Kinase 33 Troponin I High Sens 45 Total Protein 6.8 Albumin 2.7 L Globulin 4.1 Urine Color Yellow Urine Clarity Sl. Cloudy Urine pH 8.0 Ur Specific Boon 1.010 Urine Protein 500 H Urine Glucose (UA) 50 H Urine Ketones Negative Urine Occult Blood 50 H Urine Nitrite Negative Urine Bilirubin Negative Urine Urobilinogen Normal Ur Leukocyte Esterase 100 H Urine RBC 0-5 SEEN Urine WBC 10-25 SEEN Ur Squamous Epith Cells 0 SEEN Urine Bacteria RARE Urine Mucus 0 SEEN Radiography Chest X-Ray - ED: 1 View, Read by ED Physician, Read by Radiologist and No Acute Disease Diagnostic Testing: Clinical Impression(s) from Imaging Studies Brain CT 08/04/23 12:20 IMPRESSION: 1. Chronic involutional changes of the brain. 2. No visualized skull fracture or pneumocephalus or subdural hemorrhage or midline shift. Electronically Signed: Idris Traore MD at 13:23 EDT , Cervical Spine CT 08/04/23 12:20 IMPRESSION: Multilevel degenerative changes, as described above. Electronically Signed: Idris Traore MD at 13:20 EDT , Chest X-Ray 08/04/23 12:40 IMPRESSION: Mild cardiomegaly. No acute abnormality is seen. Electronically Signed: Horacio Sanchez MD at 12:54 EDT , Pelvis X-Ray 08/04/23 12:40 IMPRESSION: Degenerative changes. No fracture is seen. Electronically Signed: Horacio Sanchez MD at 12:54 EDT , Rhythm Strip Rhythm Strip: Sinus Rhythm Rate: 91 Ectopy: None EKG Initial EKG: Attestation: I personally reviewed and interpreted this EKG as follows: Interpretation: Sinus Rhythm Comments: Normal sinus rhythm rate of 91 bpm Normal axis Normal intervals Normal ST segments Management Discussion w/another healthcare provider: Hospitalist Discharge Plan Triage Chief Complaint: Fall ED Provider: Batool Capellan Dx/Rx/DC Orders Clinical Impression: Abrasion of scalp, Closed head injury, Encephalopathy, ESRD (end stage renal disease) on dialysis, Unwitnessed fall Prescriptions: No Action icosapent ethyl [Vascepa] 1 gram capsule 2 g PO BID Qty: 180 3RF doxazosin [Cardura] 2 mg tablet 2 mg PO BID 90 Days Qty: 180 3RF (DME) Juxta Lite See Rx Instructions .Route .MEDSUPPLY Qty: 2 4RF Rx Instructions: As directed lidocaine 5 % adhesive patch,medicated 1 patch topical Q24H Patient Comments: apply 1 patch to affected area daily hydralazine 50 mg tablet 50 mg PO .QID 90 Days Qty: 360 1RF multivitamin Tablet 1 tab PO DAILY carvedilol 12.5 mg Tablet 12.5 mg PO BID Rx Instructions: must administer with a meal/food famotidine 40 mg Tablet 40 mg PO DAILY Vitamin C 1,000 mg Tablet Extended Release 1,000 mg PO DAILY levothyroxine 25 mcg Tablet 25 mcg PO DAILY folic acid 1 mg Tablet 1 mg PO DAILY Lumigan 0.01 % Drops 1 drp EACH EYE QHS pantoprazole 40 mg tablet,delayed release (DR/EC) 40 mg PO PRN furosemide [Lasix] 40 mg tablet 60 mg PO BID acetaminophen [Tylenol] 325 mg Capsule 650 mg PO QHS nifedipine 60 mg tablet extended release 60 mg PO BID nifedipine 60 mg Tablet Extended Release 24hr 60 mg PO BID Qty: 60 2RF amlodipine 10 mg tablet 10 mg PO DAILY gabapentin 100 mg capsule 200 mg PO DAILY PRN (Reason: Neuropathy) 90 Days Qty: 90 1RF Rx Instructions: Daily Prn Primary Care Provider: Jacky Morgan Referrals: Jacky Morgan MD [Primary Care Provider] - Disposition Disposition: Acute Care Hospital Discharge Location: [facility]
[2023-08-04 13:06] LABS: Ammonia < 10.0 umol/L (11-32)
[2023-08-04 13:12] LABS: AST(SGOT) 19 U/L (15-37); Alanine Aminotransfer ALT/SGPT 17 U/L (13-56); Albumin, Serum 2.7 g/dL (3.2-5.0); Alkaline Phosphatase 76 U/L (45-117); BUN 36 mg/dL (7-18); BUN/Creat Ratio 8.8 RATIO (10-20); Bilirubin, Direct 0.07 mg/dL (0.00-0.30); CPK Total, Creatine Kinase 33 U/L (26-192); Calcium,Total 9.4 mg/dL (8.5-10.1); Chloride 95 mmol/L (98-107); Creatinine, Serum 4.11 mg/dL (0.55-1.02); EST Glomerular Filtration Rate 11 mL/min (>60); Est Glom Filt Rate - Afr Amer 13 mL/min (>60); Estimated Creatinine Clearance 7.45 ml/min; Globulin 4.1 g/dL (2.2-4.2); Glucose 190 mg/dL (74-106); Phosphorus 3.6 mg/dL (2.5-4.9); Potassium 4.5 mmol/L (3.5-5.1); Protein, Total 6.8 g/dL (6.4-8.2); Sodium Level 132 mmol/L (136-145); Troponin-I HS (w/2H Reflex) 45 pg/mL (3.0-54.0)
[2023-08-04 13:31] LABS: Differential Comment SCANNED
[2023-08-04 13:32] LABS: Platelet Estimate MOD DEC (ADEQ)
[2023-08-04 13:36] LABS: Mucous, Urine 0 SEEN /hpf (<or=2+); Squamous Epithelial Cells - UA 0 SEEN /hpf (5-10)
[2023-08-04 13:39] LABS: Color, Urine Yellow (Yellow); Glucose, Dipstick 50 mg/dl (Normal); Ketone-Dipstick Negative (Negative); Leukocyte Esterase-Dipstick 100 /ul (Negative); Nitrite-Dipstick Negative (Negative); Occult Blood-Urine 50 /ul (Negative); Protein-Dipstick 500 mg/dl (Negative); Urine Bilirubin Dipstick Negative (Negative); Urine Clarity Sl. Cloudy (Clear); Urine Urobilinogen Normal (Normal)
[2023-08-04 13:46] LABS: Bacteria RARE /hpf (None Seen); Red Blood Cells-Urine 0-5 SEEN /hpf (0-5); White Blood Cells 10-25 SEEN /hpf (0-5)
--- NOTE | 2023-08-04 14:45 | ED.RN ---
notified of sbp's in 180's consistently
[2023-08-04] MEDS: hydrALAZINE 20 MG/ML Vial 10 MG IV (15:01)
[2023-08-04] MEDS: Ceftriaxone 1 GM/50 ML BAG IV (15:01)
--- NOTE | 2023-08-04 16:20 | ED.RN ---
notified bp not improved s/p hydralazine
[2023-08-04] MEDS: Labetalol (Prefilled) 20 MG/4 ML IV ×2 (16:37→18:35)
--- NOTE | 2023-08-04 17:54 | ED.RN ---
Addendum entered by Joan Melissa 08/04/23 17:56: Correction: s/p labetolol NOT Lopressor Original Note: notified that bp remains elevated after lopressor
--- NOTE | 2023-08-04 20:08 | ED.RN ---
pt accepted at [facility] 5M [id number] bed 1 [id number] eta [id number]
--- NOTE | 2023-08-04 20:20 | ED.RN ---
This RN asked Dr Suárez about blood pressure meds due to her prolonged elevated BP, Dr Suárez is going to wait to see what the hospitalist wishes.
== END 2023-08-04 21:09 | disposition short-term general hospital (02) ==
PROVIDERS: Emergency Provider Emergency Medicine; PCP Internal Medicine; Visit Provider Emergency Medicine
DX: S00.01XA Abrasion of scalp, initial encounter (principal); I13.2 Hypertensive heart and chronic kidney disease with heart failure and with stage 5 chronic kidney disease, or end stage renal disease; N18.6 End stage renal disease; I50.9 Heart failure, unspecified; E11.22 Type 2 diabetes mellitus with diabetic chronic kidney disease; G93.40 Encephalopathy, unspecified; W19.XXXA Unspecified fall, initial encounter; Z99.2 Dependence on renal dialysis; Y92.129 Unspecified place in nursing home as the place of occurrence of the external cause; K21.9 Gastro-esophageal reflux disease without esophagitis; Z79.899 Other long term (current) drug therapy; E03.9 Hypothyroidism, unspecified; Z90.5 Acquired absence of kidney; Z90.710 Acquired absence of both cervix and uterus; Z96.659 Presence of unspecified artificial knee joint; N39.0 Urinary tract infection, site not specified
CPT/HCPCS: 70450; 71045; 72125; 72170; 80069; 80076; 81001; 82140; 82550; 84484; 85025; 85610; 87086; 93005; 96365; 96375; 96376; 99285; A4216

== ENCOUNTER 2023-09-04 18:46 | Inpatient (IN) | payer MEDICARE, OTHER, SELFPAY ==
[2023-09-04] VITALS (11 sets, daily range): BP systolic 144–239; BP diastolic 50–90; PULSE 68–101; RESP 16–28; TEMP 35.9–37.2; O2SAT 95–99; BMI 21.1; BMI 18.8
--- NOTE | 2023-09-04 19:04 | CT_ITS ---
EXAM: CT ABDOMEN AND PELVIS WITHOUT INTRAVENOUS CONTRAST CLINICAL INDICATION: Pain TECHNIQUE: Helically acquired images were obtained of the abdomen and pelvis without intravenous contrast. This CT exam was performed using one or more of the following dose reduction techniques: automated exposure control, adjustment of the mA and/or kV according to patient size, and/or use of iterative reconstruction technique. COMPARISON: No relevant prior studies available. FINDINGS: LOWER THORAX: There are moderate coronary artery calcifications. Lung bases are clear. No cardiomegaly. No significant pericardial effusion. ABDOMEN: LIVER: Unremarkable. Homogeneous. GALLBLADDER AND BILE DUCTS: Gallstones present. There is no inflammation. No gallbladder distention or wall edema. No intra- or extrahepatic biliary ductal dilation. PANCREAS: Unremarkable. No focal cystic mass. SPLEEN: Unremarkable. Normal size without focal cystic or solid mass. ADRENALS: Unremarkable. No nodules. KIDNEYS AND URETERS: There is a fluid density mass in the left kidney compatible with a cyst. No follow-up imaging is necessary. The right kidney is nonvisualized and may be surgically absent. Normal renal size and position. STOMACH AND BOWEL: Unremarkable. No stomach or bowel distention. No focal inflammatory change. PELVIS: APPENDIX: No evidence of acute appendicitis. BLADDER: Unremarkable. REPRODUCTIVE: Unremarkable as visualized. No mass. ABDOMEN and PELVIS: INTRAPERITONEAL SPACE: Unremarkable. No ascites or other fluid collection. No free air. BONES/JOINTS: Unremarkable. No suspicious lytic or blastic abnormality. SOFT TISSUES: Unremarkable. No discrete abdominal or pelvic wall hernia. VASCULATURE: See above. LYMPH NODES: Unremarkable. No enlarged lymph nodes. CT/Abdomen/Pelvis without Cont IMPRESSION: 1. Status post right nephrectomy. 2. Cholelithiasis with no evidence of cholecystitis. No other acute abnormalities are identified. Electronically Signed: All Ames MD at 20:26 EDT ,
--- NOTE | 2023-09-04 19:19 | EDS_ITS ---
HPI <ALEM Barney - Last Filed: 09/04/23 21:44> History of Present Illness Chief Complaint: General Illness Narrative Narrative: Patient presenting today due to generalized abdominal pain that started this morning. She reports that she did have a few episodes of nausea and vomiting this morning. She denies any history of abdominal surgeries. She is coming from [facility] reports that she has been more lethargic today and has been refusing care. She does have a history of end-stage renal disease on dialysis, she had half of her dialysis treatment today and refused to have the full treatment. She was recently admitted here in June and seen again in July for encephalopathy. In July she was transferred to [facility] where she had an extensive workup done. She has a PMH of ESRD, anemia, left sided renal cell carcinoma s/p surgery followed by local recurrence in the bladder x 2. She denies any fevers, chills, urinary symptoms, chest pain, and diarrhea. PFSH <ALEM Barney - Last Filed: 09/04/23 21:44> [facility] Medical History Anemia Arthritis Bilateral lower extremity edema Cancer Cardiomyopathy CKD (chronic kidney disease) stage 5, GFR less than 15 ml/min ESRD on dialysis Gastric reflux Glaucoma Heart failure Heart murmur Hx of fracture of wrist Hyperlipidemia Hypertension Hypothyroidism Kidney failure Lumbar spinal stenosis Macular degeneration Mitral regurgitation Osteoporosis Rheumatoid arthritis Shortness of breath on exertion Sjogren syndrome with inflammatory arthritis Thyroid disease Type 2 diabetes mellitus Vertigo Home Medications ascorbic acid (vitamin C) 1,000 mg tablet,extended release (Vitamin C ER) 1,000 mg PO DAILY supplement 06/13/22 [History Last Taken Unknown] bimatoprost 0.01 % eye drops (Lumigan) 1 drp EACH EYE QHS eye drop 06/13/22 [History Last Taken Unknown] carvedilol 12.5 mg tablet 12.5 mg PO BID BLOOD PRESSURE 06/13/22 [History Last Taken 08/22/22 06:00] famotidine 40 mg tablet 40 mg PO DAILY stomach 06/13/22 [History Last Taken Unknown] folic acid 1 mg tablet 1 mg PO DAILY supplement 06/13/22 [History Last Taken Unknown] levothyroxine 25 mcg tablet 25 mcg PO DAILY thryoid 06/13/22 [History Last Taken 10/10/22] multivitamin 1 tab PO DAILY supplement 06/13/22 [History Last Taken Unknown] Juxta Lite #2 ea 08/15/22 [Rx Last Taken Unknown] doxazosin 2 mg tablet (Cardura) 2 mg PO BID 3 months #180 tabs 08/15/22 [Rx Last Taken 08/22/22 06:00] furosemide 40 mg tablet (Lasix) 60 mg PO BID water pill 08/15/22 [History Last Taken Unknown] icosapent ethyl 1 gram capsule (Vascepa) 2 g (2 x 1 gram) PO BID #180 caps 08/15/22 [Rx Last Taken Unknown] acetaminophen 325 mg capsule (Tylenol) 650 mg PO Q4H pain or fever 10/03/22 [History Last Taken Unknown] lidocaine 5 % topical patch 1 patch topical Q24H pain patch 01/30/23 [History Last Taken Unknown] hydralazine 50 mg tablet 50 mg PO .QID 3 months #360 tabs 06/05/23 [Rx Last Taken Unknown] gabapentin 100 mg capsule 200 mg (2 x 100 mg) PO DAILY PRN Neuropathy 3 months #90 caps 06/27/23 [Rx Last Taken Unknown] pantoprazole 40 mg tablet,delayed release 40 mg PO PRN Indigestion 06/30/23 [History Last Taken Unknown] nifedipine 60 mg tablet,extended release 60 mg PO BID BLOOD PRESSURE 07/16/23 [History Last Taken Unknown] nifedipine 60 mg tablet,extended release 24 hr 60 mg PO BID #60 tabs 07/19/23 [Rx Last Taken Unknown] amlodipine 10 mg tablet 10 mg PO DAILY blood pressure 07/22/23 [History Last Taken Unknown] acetaminophen 650 mg rectal suppository 650 mg ND Q4H PRN fever or pain 09/04/23 [History Last Taken Unknown] aluminum-magnesium hydroxide 225 mg-200 mg/5 mL oral suspension 30 ml PO Q4H 09/04/23 [History Last Taken Unknown] bisacodyl 10 mg rectal suppository 10 mg ND DAILY PRN constipation 09/04/23 [History Last Taken Unknown] cefdinir 300 mg capsule 300 mg PO BID 09/04/23 [History Last Taken Unknown] Allergy/AdvReac Type Severity Reaction Status Date / Time beef derived (bovine) Allergy Unknown PT UNABLE Verified 09/04/23 18:47 TO RESPOND-NEEDS F/U Pork/Porcine Containing Allergy Unknown PT UNABLE Verified 09/04/23 18:47 Products TO RESPOND-NEEDS F/U adalimumab [From Humira] Allergy Hives Verified 09/04/23 18:47 Family History Mother Heart disease Hypertension Osteoporosis Father CVA (cerebral vascular accident) Hypertension Surgical History H/O transurethral resection of bladder tumor (TURBT) History of bladder surgery History of nephrectomy Hx of colonoscopy S/P partial hysterectomy S/P total knee arthroplasty S/P vein stripping Social History household members: family Smoking Status: Never smoker alcohol intake: never substance use type: does not use ROS <ALEM Barney - Last Filed: 09/04/23 21:44> ROS ED Constitutional Constitutional ED: Denies chills or fever(s) Cardiovascular Cardiovascular: Denies chest pain or palpitations Respiratory/Chest Respiratory/Chest: Denies cough or dyspnea Gastrointestinal Gastrointestinal: Reports abdominal pain, nausea and vomiting; Denies constipation or diarrhea Genitourinary Genitourinary ED: Denies dysuria, hematuria or urinary urgency Musculoskeletal Musculoskeletal: Denies arthralgias or myalgias Integumentary Denies rash Neurologic Neurologic: Denies weakness EXAM <ALEM Barney - Last Filed: 09/04/23 21:44> Physical Exam Const Vital Signs: 09/04/23 18:47 09/04/23 18:47 09/04/23 20:47 Temperature 96.7 F L Temperature Source Temporal Pulse Rate 77 82 Respiratory Rate 20 H 20 H Respiratory Effort Normal Non-Labored Respiratory Pattern Normal Normal Blood Pressure 190/90 H Blood Pressure Mean 123 Pulse Ox 95 Oxygen Delivery Method Room Air 09/04/23 20:47 09/04/23 21:38 09/04/23 22:00 Temperature 98.9 F Temperature Source Pulse Rate 68 76 83 Respiratory Rate 16 28 H 23 H Respiratory Effort Respiratory Pattern Blood Pressure 231/72 H 207/66 H 159/53 H Blood Pressure Mean 125 113 88 Pulse Ox 98 98 98 Oxygen Delivery Method Room Air Room Air Positive well nourished, well developed and no apparent distress General Appearance ED: well developed HEENT Reports normocephalic and head/scalp atraumatic Mouth ED: Yes moist mucous membranes normal Eyes PERRL and EOMs intact bilaterally Neck full ROM and supple Chest Wall inspection of chest normal Resp normal respiratory effort and clear to auscultation bilaterally Cardio regular rate and regular rhythm GI soft to palpation, non-distended and no masses GI Narrative: Generalized abdominal tenderness palpation, no rigidity or guarding. Back/Spine normal ROM and normal to inspection Extremity normal to inspection and full ROM Neuro oriented x3, CN's II-XII intact bilaterally, moves all extremities, no focal motor deficits and no sensory deficits noted Sensorium / Orientation: awake and alert Psych mental status grossly normal and thought process normal Skin no rashes or lesions noted and no wounds <Dr. Juan Carlos Molina DO - Last Filed: 09/04/23 23:32> Physical Exam Const Vital Signs: 09/04/23 18:47 09/04/23 18:47 09/04/23 20:47 Temperature 96.7 F L Temperature Source Temporal Pulse Rate 77 82 Respiratory Rate 20 H 20 H Respiratory Effort Normal Non-Labored Respiratory Pattern Normal Normal Blood Pressure 190/90 H Blood Pressure Mean 123 Pulse Ox 95 Oxygen Delivery Method Room Air 09/04/23 20:47 09/04/23 21:38 09/04/23 22:00 Temperature 98.9 F Temperature Source Pulse Rate 68 76 83 Respiratory Rate 16 28 H 23 H Respiratory Effort Respiratory Pattern Blood Pressure 231/72 H 207/66 H 159/53 H Blood Pressure Mean 125 113 88 Pulse Ox 98 98 98 Oxygen Delivery Method Room Air Room Air [facility] <ALEM Barney - Last Filed: 09/04/23 21:44> [facility] Narrative Medical decision making narrative: Patient presenting due to abdominal pain, nausea, and vomiting. I did review her recent workup at [facility], she was admitted for encephalopathy of unclear etiology. She had an MRI of the brain and CSF which were both negative. She also had an MRI when she was admitted here in June that was negative. Her mentation had been waxing and waning but improved after they started her on prednisone. 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 Patient is alert and oriented but does appear tired and frequently starts to close her eyes during my exam. She does not appear confused. She has mild generalized abdominal tenderness, CT scan will be obtained to rule out abdominal etiology as well as labs. CBC shows chronic anemia with an H&H of 7.4 and 23. Sodium 131, potassium 5.7, BUN 47, creatinine 4.09, this is consistent with her CKD. She was given albuterol and insulin for the hyperkalemia. She was given IV Zofran and morphine for the pain and nausea. I spoke with her [id number], she reports that patient did not have any vomiting today. She reported concerns for possible pneumonia as a recent chest x-ray possibly suggested this, repeat chest x-ray obtained here, no evidence of infiltrate. No leukocytosis, patient has not been coughing. She did require multiple doses of hydralazine for her hypertension. I do feel she would benefit from admission to the hospital. Patient does not want dialysis tomorrow, palliative care discussion may be beneficial, this was brought up during her stay at [facility]. She will be admitted to the ICU in stable condition. Lab Data Attestation: I reviewed the patient's lab results. Labs: Laboratory Results - last 24 hr 09/04/23 19:19 WBC 10.5 RBC 2.42 L Hgb 7.4 L Hct 23.0 L MCV 95.0 MCH 30.6 MCHC 32.2 RDW Std Deviation 53.6 H RDW Coeff of Wiliam 15.4 H Plt Count 155 MPV 11.4 Immature Gran % (Auto) 2.500 H Neut % (Auto) 71.3 H Lymph % (Auto) 19.1 [place] % (Auto) 5.8 Eos % (Auto) 1.1 Baso % (Auto) 0.2 Absolute Neuts (auto) 7.5 Absolute Lymphs (auto) 2.00 Nucleated RBC % 0 Sodium 131 L Potassium 5.7 H Chloride 94 L Carbon Dioxide 32.0 Anion Gap 5 BUN 47 H Creatinine 4.09 H Estim Creat Clear Calc 7.49 Est GFR (MDRD) Af Amer 13 L Est GFR (MDRD) Non-Af 11 L BUN/Creatinine Ratio 11.5 Glucose 126 H Calcium 9.4 Total Bilirubin 0.40 AST 12 L ALT 15 Alkaline Phosphatase 56 Total Protein 5.9 L Albumin 2.9 L Globulin 3.0 Albumin/Globulin Ratio 1.0 Lipase 96 H Radiography X-Ray: Read by ED Physician Diagnostic Testing: Clinical Impression(s) from Imaging Studies Abdomen/Pelvis CT 09/04/23 19:04 IMPRESSION: 1. Status post right nephrectomy. 2. Cholelithiasis with no evidence of cholecystitis. No other acute abnormalities are identified. Electronically Signed: All Ames MD at 20:26 EDT , Chest X-Ray 09/04/23 20:40 IMPRESSION: No radiographic evidence of acute cardiopulmonary disease. Electronically Signed: All Ames MD at 20:50 EDT , EKG Initial EKG: Comments: 71 bpm, normal sinus rhythm, no ST elevation, reviewed and interpreted by attending ED physician <Dr. Juan Carlos Molina, DO - Last Filed: 09/04/23 23:32> [facility]DM Narrative Medical decision making narrative: Patient presenting due to abdominal pain, nausea, and vomiting. I did review her recent workup at [facility], she was admitted for encephalopathy of unclear etiology. She had an MRI of the brain and CSF which were both negative. She also had an MRI when she was admitted here in June that was negative. Her mentation had been waxing and waning but improved after they started her on prednisone. 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 Patient is alert and oriented but does appear tired and frequently starts to close her eyes during my exam. She does not appear confused. She has mild generalized abdominal tenderness, CT scan will be obtained to rule out abdominal etiology as well as labs. CBC shows chronic anemia with an H&H of 7.4 and 23. Sodium 131, potassium 5.7, BUN 47, creatinine 4.09, this is consistent with her CKD. She was given albuterol and insulin for the hyperkalemia. She was given IV Zofran and morphine for the pain and nausea. I spoke with her [id number], she reports that patient did not have any vomiting today. She reported concerns for possible pneumonia as a recent chest x-ray possibly suggested this, repeat chest x-ray obtained here, no evidence of infiltrate. No leukocytosis, patient has not been coughing. She did require multiple doses of hydralazine for her hypertension. I do feel she would benefit from admission to the hospital. Patient does not want dialysis tomorrow, palliative care discussion may be beneficial, this was brought up during her stay at [facility]. She will be admitted to the ICU in stable condition. Attending note: Patient seen and evaluated with commercial decorator. I perform my own [id number] evaluation. I agree with the plan of work-up. Presents here secondary to not acting herself. History of encephalopathy with workup most recently x 2-month ago. Patient reports to end-stage renal disease on dialysis for past 6 months with a left fistula. We spoke with children who are physicians, daughter reports diagnosed right lower lobe pneumonia 6 days ago on cefdinir. Full workup at [facility] including lumbar puncture all negative. She was put on high-dose steroids there for 3 days and improvement mentation. She is currently on steroid taper. She did not finish dialysis yesterday only 2 and half hours. She declined it. Son was present later stating she declined finishing also 2 days ago. Patient alert and oriented x 3. She was choosing to answer questions. As reported she had abdominal pain and nausea there is no vomiting confirmed by the daughter. On workup stable anemia hemoglobin 1.4 white count 10.5. Lipase slightly up at 96. Normal liver enzymes. Potassium 5.7 with no EKG changes. Treated with aerosols insulin glucose with hyperkalemia. BUN 47 creatinine 4.09. 2 view chest x-ray interpreted by myself read by radiology shows no acute process. Daughter requesting a dose of IV antibiotics with current treatment for pneumonia. I discussed with hospitalist Dr. Grant, will place on IV Zosyn. She had blood pressure elevation accelerated hypertension, treated with hydralazine x 2. Blood pressure during discussion with systolic 230s therefore placed in ICU for potential Cardene drip if resistant. Family updated. Condition discussed with family patient was declining dialysis. Discussed with son may consider strong discussion with patient if she would like overall continuation of her current treatment with dialysis and palliative would be the other option. He understands. Lab Data Labs: Laboratory Results - last 24 hr 09/04/23 19:19 WBC 10.5 RBC 2.42 L Hgb 7.4 L Hct 23.0 L MCV 95.0 MCH 30.6 MCHC 32.2 RDW Std Deviation 53.6 H RDW Coeff of Wiliam 15.4 H Plt Count 155 MPV 11.4 Immature Gran % (Auto) 2.500 H Neut % (Auto) 71.3 H Lymph % (Auto) 19.1 [place] % (Auto) 5.8 Eos % (Auto) 1.1 Baso % (Auto) 0.2 Absolute Neuts (auto) 7.5 Absolute Lymphs (auto) 2.00 Nucleated RBC % 0 Sodium 131 L Potassium 5.7 H Chloride 94 L Carbon Dioxide 32.0 Anion Gap 5 BUN 47 H Creatinine 4.09 H Estim Creat Clear Calc 7.49 Est GFR (MDRD) Af Amer 13 L Est GFR (MDRD) Non-Af 11 L BUN/Creatinine Ratio 11.5 Glucose 126 H Calcium 9.4 Total Bilirubin 0.40 AST 12 L ALT 15 Alkaline Phosphatase 56 Total Protein 5.9 L Albumin 2.9 L Globulin 3.0 Albumin/Globulin Ratio 1.0 Lipase 96 H Radiography Diagnostic Testing: Clinical Impression(s) from Imaging Studies Abdomen/Pelvis CT 09/04/23 19:04 IMPRESSION: 1. Status post right nephrectomy. 2. Cholelithiasis with no evidence of cholecystitis. No other acute abnormalities are identified. Electronically Signed: All Ames MD at 20:26 EDT , Chest X-Ray 09/04/23 20:40 IMPRESSION: No radiographic evidence of acute cardiopulmonary disease. Electronically Signed: All Ames MD at 20:50 EDT , Discharge Plan Dx/Rx/DC Orders Clinical Impression: Anemia, Metastatic renal cell carcinoma, Nausea, Abdominal pain, Acute hyperkalemia, Acute hyponatremia, ESRD on hemodialysis, Bladder cancer, Accelerated hypertension Disposition Disposition: Acute Care Hospital [facility] Discharge Date/Time: 09/04/23 22:29
[2023-09-04] MEDS: Ondansetron 4 MG/2 ML Vial IV (19:20)
[2023-09-04] MEDS: Morphine 2 MG/ML Syringe IV (19:20)
[2023-09-04 19:32] LABS: Absolute Neutrophil Count 7.5 X10^3/uL (2.0-7.7); Basophil# 0.02 X10^3/uL; Basophil% 0.2 % (0-1); Eosinophil# 0.12 X10^3/uL; Eosinophils% 1.1 % (0-5); Hemoglobin 7.4 g/dL (12.0-15.0); Lymphocyte % 19.1 % (19-41); Mean Corp Hgb Conc 32.2 g/dL (32-36); Mean Corpuscular Hgb 30.6 pg (27.0-32.0); Mean Platelet Vol. 11.4 fl (6.2-12.0); Monocyte# 0.61 X10^3/uL; Monocyte% 5.8 % (0-10); NRBC Flagged by Analyzer 0 % (0-5); Neutrophil # 7.48 X10^3/uL (2.7-7.7); Neutrophil % 71.3 % (47-70); Platelet Count 155 K/mm3 (150-450); RBC Distribution Width CV 15.4 % (11.6-14.6); RBC Distribution Width SD 53.6 fl (35.1-43.9); Red Blood Count 2.42 M/mm3 (4.2-5.4); White Blood Count 10.5 K/mm3 (4.4-11.0)
[2023-09-04 19:50] LABS: AST(SGOT) 12 U/L (15-37); Alanine Aminotransfer ALT/SGPT 15 U/L (13-56); Albumin, Serum 2.9 g/dL (3.2-5.0); Alkaline Phosphatase 56 U/L (45-117); Anion Gap 5 (5-15); BUN 47 mg/dL (7-18); BUN/Creat Ratio 11.5 RATIO (10-20); Calcium,Total 9.4 mg/dL (8.5-10.1); Chloride 94 mmol/L (98-107); Creatinine, Serum 4.09 mg/dL (0.55-1.02); EST Glomerular Filtration Rate 11 mL/min (>60); Est Glom Filt Rate - Afr Amer 13 mL/min (>60); Estimated Creatinine Clearance 7.49 ml/min; Glucose 126 mg/dL (74-106); Lipase 96 U/L (13-75); Potassium 5.7 mmol/L (3.5-5.1); Protein, Total 5.9 g/dL (6.4-8.2); Sodium Level 131 mmol/L (136-145)
[2023-09-04] MEDS: hydrALAZINE 20 MG/ML Vial 10 MG IV (20:29)
--- NOTE | 2023-09-04 20:40 | RAD_ITS ---
EXAM: XR CHEST, 2 VIEWS CLINICAL INDICATION: COUGH TECHNIQUE: Frontal and lateral views of the chest. COMPARISON: 08/04/2023 FINDINGS: LUNGS AND PLEURAL SPACES: Unremarkable. No consolidation or edema. No pneumothorax. No effusion. HEART: Unremarkable. Cardiac silhouette not enlarged. MEDIASTINUM: Central airways and mediastinal contour are unremarkable. BONES/JOINTS: Unremarkable. No acute fracture. SOFT TISSUES: Unremarkable. RAD/Chest PA and Lateral IMPRESSION: No radiographic evidence of acute cardiopulmonary disease. Electronically Signed: All Ames MD at 20:50 EDT ,
[2023-09-04] MEDS: Albuterol *CONC* 2.5mg/0.5mL VIAL.NEB. 10 MG INHALATION (20:45)
[2023-09-04] MEDS: Sodium Bicarbonate 150 MEQ in Dextrose 5%-Water (1000mL Bag) 1,000 ML 250 MEQ IV (21:07)
[2023-09-04] MEDS: Insulin Lispro 10 UNIT in Syringe 0 ML 6 UNIT IV (21:07)
[2023-09-04] MEDS: Dextrose 50%-Water 25 GM/50 ML DISP.SYRIN IV (21:07)
[2023-09-04] MEDS: hydrALAZINE 20 MG/ML Vial IV (21:25)
--- NOTE | 2023-09-04 21:27 | PCM.HP.STD ---
[facility] - General General Date of Admission: 09/04/23 Date of Service: 09/04/23 Chief Complaint: Abdominal pain, nausea, vomiting and confusion. HPI Narrative MONA ESTRELLA, is a 82 F with a past medical history of essential hypertension, hyperlipidemia, hypothyroidism, history of metastatic renal cell carcinoma; status post Right nephrectomy with local recurrence in the bladder x 2; status post TURBT, end-stage renal disease on hemodialysis (Friday) at [facility] with patient having only underwent ~2.5-hours with session aborted due to abdominal pain, chronic anemia, history of CHF, cardiomyopathy, chronic bilateral lower extremity edema, GERD, glaucoma, macular degeneration, RA, OA; with lumbar spinal stenosis, history of 2 recent admissions here in June 2023 and July 2023 for encephalopathy and recent diagnosis of pneumonia currently being treated with oral cefdinir 300 mg p.o. twice daily who presents to [facility] complaining of abdominal pain, nausea, vomiting and confusion. Ms. Estrella reports her symptoms began this morning with a generalized cramping abdominal pain followed by nausea and a few episodes of bilious emesis. She was also noted to be more lethargic and confused today and was refusing care with patient apparently having had consideration for hospice consultation during her last hospitalization at a tertiary care center as she is unsure if she wants to continue with hemodialysis. However, 2 of her children work for this facility and are both physicians and they have not yet come into agreement on what the plan for future care will be. She denies any fever, chills, dysuria, chest pain, shortness of breath or diarrhea. In the ER she was diagnosed with hypertensive crisis with a blood pressure of 231/72 mmHg shortly after admission complicated by laboratory evidence of hyperkalemia of 5.7 mmol/L and clinical evidence of hypertensive encephalopathy and she was then admitted to the ICU for treatment with Cardene drip for stay that is expected to be greater than 2 midnights. [facility] Medical History Anemia Arthritis Bilateral lower extremity edema Cancer Cardiomyopathy CKD (chronic kidney disease) stage 5, GFR less than 15 ml/min ESRD on dialysis Gastric reflux Glaucoma Heart failure Heart murmur Hx of fracture of wrist Hyperlipidemia Hypertension Hypothyroidism Kidney failure Lumbar spinal stenosis Macular degeneration Mitral regurgitation Osteoporosis Rheumatoid arthritis Shortness of breath on exertion Sjogren syndrome with inflammatory arthritis Thyroid disease Type 2 diabetes mellitus Vertigo Home Medications ascorbic acid (vitamin C) 1,000 mg tablet,extended release (Vitamin C ER) 1,000 mg PO DAILY supplement 06/13/22 [History Last Taken Unknown] bimatoprost 0.01 % eye drops (Lumigan) 1 drp EACH EYE QHS eye drop 06/13/22 [History Last Taken Unknown] carvedilol 12.5 mg tablet 12.5 mg PO BID BLOOD PRESSURE 06/13/22 [History Last Taken 08/22/22 06:00] famotidine 40 mg tablet 40 mg PO DAILY stomach 06/13/22 [History Last Taken Unknown] folic acid 1 mg tablet 1 mg PO DAILY supplement 06/13/22 [History Last Taken Unknown] levothyroxine 25 mcg tablet 25 mcg PO DAILY thryoid 06/13/22 [History Last Taken 10/10/22] multivitamin 1 tab PO DAILY supplement 06/13/22 [History Last Taken Unknown] Juxta Lite #2 ea 08/15/22 [Rx Last Taken Unknown] doxazosin 2 mg tablet (Cardura) 2 mg PO BID 3 months #180 tabs 08/15/22 [Rx Last Taken 08/22/22 06:00] furosemide 40 mg tablet (Lasix) 60 mg PO BID water pill 08/15/22 [History Last Taken Unknown] icosapent ethyl 1 gram capsule (Vascepa) 2 g (2 x 1 gram) PO BID #180 caps 08/15/22 [Rx Last Taken Unknown] acetaminophen 325 mg capsule (Tylenol) 650 mg PO Q4H pain or fever 10/03/22 [History Last Taken Unknown] lidocaine 5 % topical patch 1 patch topical Q24H pain patch 01/30/23 [History Last Taken Unknown] hydralazine 50 mg tablet 50 mg PO .QID 3 months #360 tabs 06/05/23 [Rx Last Taken Unknown] gabapentin 100 mg capsule 200 mg (2 x 100 mg) PO DAILY PRN Neuropathy 3 months #90 caps 06/27/23 [Rx Last Taken Unknown] pantoprazole 40 mg tablet,delayed release 40 mg PO PRN Indigestion 06/30/23 [History Last Taken Unknown] nifedipine 60 mg tablet,extended release 60 mg PO BID BLOOD PRESSURE 07/16/23 [History Last Taken Unknown] nifedipine 60 mg tablet,extended release 24 hr 60 mg PO BID #60 tabs 07/19/23 [Rx Last Taken Unknown] amlodipine 10 mg tablet 10 mg PO DAILY blood pressure 07/22/23 [History Last Taken Unknown] acetaminophen 650 mg rectal suppository 650 mg IN Q4H PRN fever or pain 09/04/23 [History Last Taken Unknown] aluminum-magnesium hydroxide 225 mg-200 mg/5 mL oral suspension 30 ml PO Q4H 09/04/23 [History Last Taken Unknown] bisacodyl 10 mg rectal suppository 10 mg IN DAILY PRN constipation 09/04/23 [History Last Taken Unknown] cefdinir 300 mg capsule 300 mg PO BID 09/04/23 [History Last Taken Unknown] Allergy/AdvReac Type Severity Reaction Status Date / Time beef derived (bovine) Allergy Unknown PT UNABLE Verified 09/04/23 18:47 TO RESPOND-NEEDS F/U Pork/Porcine Containing Allergy Unknown PT UNABLE Verified 09/04/23 18:47 Products TO RESPOND-NEEDS F/U adalimumab [From Humira] Allergy Hives Verified 09/04/23 18:47 Family History Mother Heart disease Hypertension Osteoporosis Father CVA (cerebral vascular accident) Hypertension Surgical History H/O transurethral resection of bladder tumor (TURBT) History of bladder surgery History of nephrectomy Hx of colonoscopy S/P partial hysterectomy S/P total knee arthroplasty S/P vein stripping Social History household members: family Smoking Status: Never smoker alcohol intake: never substance use type: does not use ROS ROS Narrative Patient is elderly, confused and acutely ill with hypertensive encephalopathy and therefore cannot complete a review of systems at this time. Vital Signs Vital Signs Vital Signs: 09/04/23 18:47 09/04/23 18:47 09/04/23 20:47 Temperature 96.7 F L Temperature Source Temporal Pulse Rate 77 82 Respiratory Rate 20 H 20 H Respiratory Effort Normal Non-Labored Respiratory Pattern Normal Normal Blood Pressure 190/90 H Blood Pressure Mean 123 Pulse Ox 95 Oxygen Delivery Method Room Air 09/04/23 20:47 Temperature Temperature Source Pulse Rate 68 Respiratory Rate 16 Respiratory Effort Respiratory Pattern Blood Pressure 231/72 H Blood Pressure Mean 125 Pulse Ox 98 Oxygen Delivery Method Room Air Weight Weight: 104 lb 7.986 oz Body Mass Index (BMI) 21.1 Physical Exam Const alert, no apparent distress and average body habitus Constitutional Narrative: Patient appears chronically ill with flat affect and minimal communication. General Appearance: cooperative Orientation / Consciousness: lethargic HEENT normocephalic, head/scalp atraumatic and hearing grossly normal bilaterally HEENT Narrative: Mucous membranes dry. Eyes PERRL and EOMs intact bilaterally Neck no lymphadenopathy and supple Resp normal respiratory effort, no retractions, no use of accessory muscles and clear to auscultation bilaterally Cardio regular rate and regular rhythm GI normal to inspection, nondistended, normoactive bowel sounds, soft to palpation, non-tender and non-distended Extremity normal to inspection, full ROM and no clubbing, cyanosis or edema Skin Skin Narrative: Patient has no evidence of jaundice or rash. Neuro CN's II-XII intact bilaterally, moves all extremities and no focal motor deficits Sensorium / Orientation: awake, alert, oriented to person and oriented to place Speech: speech normal Psych Psych Narrative: Patient has a very flat and depressed affect. Mood & Affect: depressed Results Medical Records Data Attestation: I reviewed the patient's medical records Lab / Micro Data Attestation: I reviewed the patient's lab results. 09/05/23 03:05 09/05/23 03:05 Labs: Laboratory Results - last 24 hr 09/04/23 19:19: WBC 10.5, RBC 2.42 L, Hgb 7.4 L, Hct 23.0 L, MCV 95.0, MCH 30.6, MCHC 32.2, RDW Std Deviation 53.6 H, RDW Coeff of Wiliam 15.4 H, Plt Count 155, MPV 11.4, Immature Gran % (Auto) 2.500 H, Neut % (Auto) 71.3 H, Lymph % (Auto) 19.1, [place] % (Auto) 5.8, Eos % (Auto) 1.1, Baso % (Auto) 0.2, Absolute Neuts (auto) 7.5, Absolute Lymphs (auto) 2.00, Nucleated RBC % 0, Sodium 131 L, Potassium 5.7 H, Chloride 94 L, Carbon Dioxide 32.0, Anion Gap 5, BUN 47 H, Creatinine 4.09 H, Estim Creat Clear Calc 7.49, Est GFR (MDRD) Af Amer 13 L, Est GFR (MDRD) Non-Af 11 L, BUN/Creatinine Ratio 11.5, Glucose 126 H, Calcium 9.4, Total Bilirubin 0.40, AST 12 L, ALT 15, Alkaline Phosphatase 56, Total Protein 5.9 L, Albumin 2.9 L, Globulin 3.0, Albumin/Globulin Ratio 1.0, Lipase 96 H Imaging Radiology Impression Abdomen/Pelvis CT 09/04/23 19:04 IMPRESSION: 1. Status post right nephrectomy. 2. Cholelithiasis with no evidence of cholecystitis. No other acute abnormalities are identified. Electronically Signed: All Ames MD at 20:26 EDT , [facility] Imaging Services [address] [place] [id number] Chest PA and Lateral MR#: [id number] Acct: [id number] Name: MONA ESTRELLA Rep #: [id number] : 1940 F 82 From: All Ames MD PCP: Dr. Jacky Morgan MD Status: REG ER Study: Chest PA and Lateral Date of Exam: 09/04/23 Exam# [id number] Ordering Dr: Juan Carlos Molina DO EXAM: XR CHEST, 2 VIEWS CLINICAL INDICATION: COUGH TECHNIQUE: Frontal and lateral views of the chest. COMPARISON: 08/04/2023 FINDINGS: LUNGS AND PLEURAL SPACES: Unremarkable. No consolidation or edema. No pneumothorax. No effusion. HEART: Unremarkable. Cardiac silhouette not enlarged. MEDIASTINUM: Central airways and mediastinal contour are unremarkable. BONES/JOINTS: Unremarkable. No acute fracture. SOFT TISSUES: Unremarkable. RAD/Chest PA and Lateral IMPRESSION: No radiographic evidence of acute cardiopulmonary disease. Electronically Signed: All Ames MD at 20:50 EDT , CC: Dr. Jacky Morgan MD; Dr. Juan Carlos Molina DO ~ Sr. Unix System Administrator: Signed Assessment & Plan Assessment/Plan (1) Hypertensive crisis: (2) Hyperkalemia: (3) Hypertensive encephalopathy: (4) Anemia: QUALIFIERS: Anemia type: unspecified type Qualified Code(s): D64.9 - Anemia, unspecified PLAN: Plan 1. Hypertensive crisis with blood pressure of 231/72 mmHg shortly after admission requiring treatment with IV Cardene drip - Admit to ICU. Titrate Cardene drip to slowly decrease blood pressure to the 180 mmHg systolic range. Otherwise we will restart patient's home regimen. 2. Laboratory evidence of hyperkalemia of 5.7 mmol/L present on admission in the setting of ESRD on HD with abbreviated dialysis session earlier today due to abdominal pain complicating #1 - We we will treat with Kayexalate and IV Lasix since patient still makes urine. We will consult nephrology to see this patient on rounds in the a.m. for further recommendations with help appreciated in advance. 3. Clinical evidence of hypertensive encephalopathy with abdominal pain, nausea and vomiting compounding #1 & #2 - Give IV Zofran as needed for breakthrough GI upset. Minimize OYSTERMAN-active medications. Continue supportive care and monitor for improvement. Check TSH. 4. Recently diagnosed pneumonia treated with oral cefdinir - Stopped cefdinir and began IV Zosyn as per family request but since her follow-up imaging does not reveal infiltrate we will stop this agent. 5. History of 2 recent admissions here in June 2023 and July 2023 for encephalopathy - Noted. 6. History of metastatic renal cell carcinoma; status post Right nephrectomy with local recurrence in the bladder x 2 - Noted with patient contemplating possible palliative care. 7. Hyperlipidemia - Resume statin and check lipid profile. 8. Hypothyroidism - Continue Synthroid as previous and check TSH. 9. Chronic anemia - Stable with hemoglobin of 7.4 g/dL present on admission which is near her recent baseline. 10. History of CHF and cardiomyopathy - Stable. Continue home medications as previous. 11. Chronic bilateral lower extremity edema - Stable. 12. GERD - Continue PPI. 13. Glaucoma - Resume current treatment. 14. Macular degeneration - Stable. 15. RA - Stable. 16. OA; with lumbar spinal stenosis - Give Tylenol as needed. 17. DVT prophylaxis - Lovenox 30 mg subcu daily plus SCDs. Total time: Approximately 85 minutes. Update: Patient's morning labs showed her hemoglobin dropped from 7.4 g/dL on admission to 6.1 g/dL now this a.m. so order has been placed for blood to be typed and screened and transfused. There have been no obvious signs of bleeding. Also her potassium level has dropped from 5.7 mmol/L present on admission to 4.7 mmol/L now. INTELLIGENCE OFFICER BASIC was updated with plan. Charges/Coding Visit Charges Inpatient E&M: 85927 Init Hosp L3
--- NOTE | 2023-09-04 21:42 | ED.RN ---
report called to Verito at [facility]. informed that patient would be admitted to [facility]. requested med list to be faxed over again d/t pt arriving with only half of list.
[2023-09-04] MEDS: Piperacil/Tazobactam 4.5 GM in 0.9% Normal Saline (100mL MB+) 100 ML IV (23:13)
[2023-09-04] MEDS: NICARdipine 25 MG in 0.9% Normal Saline (250mL Bag) 240 ML 50 MG CONT INF (23:22)
[2023-09-04] MEDS: Sodium Polystyrene Sulfonate 15 GM/60 ML UDC 30 GM PO (23:30)
[2023-09-04] MEDS: Latanoprost 0.005% 1 Bottle 1 DRP EACH EYE (23:37)
[2023-09-04 23:42] LABS: Vitamin B12 1238 pg/mL (211-911)
[2023-09-04 23:47] LABS: Hemoglobin A1c 5.2 % (3.8-5.6)
[2023-09-05] VITALS (54 sets, daily range): BP systolic 121–222; BP diastolic 49–134; PULSE 61–97; RESP 12–23; TEMP 36.4–37.2; O2SAT 95–100; BMI 18.8
[2023-09-05 00:16] LABS: Cholesterol 195 mg/dL (200); High Density Lipoprotein 57 mg/dL; Iron 78 ug/dL (50-170); Iron Binding Capacity,Total 257 ug/dL (250-450); PERCENT IRON SATURATION 30.4 % (15.0-55.0); Thyroid Stim Hormone (TSH) 3.55 uIU/mL (0.358-3.74); Triglycerides 289 mg/dL; Very Low Density Lipoprotein 58 mg/dL (5-40)
[2023-09-05 00:52] LABS: Potassium 4.7 mmol/L (3.5-5.1)
[2023-09-05 03:17] LABS: Absolute Lymphocyte Count 1.86 X10^3/uL (0.83-4.51); Absolute Neutrophil Count 5.8 X10^3/uL (2.0-7.7); Basophil# 0.01 X10^3/uL; Basophil% 0.1 % (0-1); Eosinophil# 0.14 X10^3/uL; Eosinophils% 1.6 % (0-5); Hematocrit 19.5 % (37-47); Hemoglobin 6.1 g/dL (12.0-15.0); Lymphocyte # 1.86 X10^3/ul (0.83-4.51); Lymphocyte % 21.7 % (19-41); Mean Corp Hgb Conc 31.3 g/dL (32-36); Mean Corpuscular Hgb 29.9 pg (27.0-32.0); Mean Corpuscular Volume 95.6 fL (81-99); Mean Platelet Vol. 10.7 fl (6.2-12.0); Monocyte# 0.57 X10^3/uL; Monocyte% 6.6 % (0-10); NRBC Flagged by Analyzer 0 % (0-5); Neutrophil # 5.81 X10^3/uL (2.7-7.7); Neutrophil % 67.8 % (47-70); Platelet Count 134 K/mm3 (150-450); RBC Distribution Width CV 15.3 % (11.6-14.6); RBC Distribution Width SD 53.7 fl (35.1-43.9); Red Blood Count 2.04 M/mm3 (4.2-5.4); White Blood Count 8.6 K/mm3 (4.4-11.0)
[2023-09-05 03:39] LABS: AST(SGOT) 11 U/L (15-37); Alanine Aminotransfer ALT/SGPT 14 U/L (13-56); Albumin, Serum 2.4 g/dL (3.2-5.0); Alkaline Phosphatase 44 U/L (45-117); Anion Gap 8 (5-15); BUN 47 mg/dL (7-18); BUN/Creat Ratio 11.5 RATIO (10-20); Calcium,Total 8.8 mg/dL (8.5-10.1); Chloride 89 mmol/L (98-107); Creatinine, Serum 4.08 mg/dL (0.55-1.02); EST Glomerular Filtration Rate 11 mL/min (>60); Est Glom Filt Rate - Afr Amer 13 mL/min (>60); Estimated Creatinine Clearance 7.24 ml/min; Globulin 2.5 g/dL (2.2-4.2); Glucose 181 mg/dL (74-106); Magnesium 2.1 mg/dL (1.6-2.6); Phosphorus 4.6 mg/dL (2.5-4.9); Potassium 4.7 mmol/L (3.5-5.1); Protein, Total 4.9 g/dL (6.4-8.2); Sodium Level 133 mmol/L (136-145)
[2023-09-05 04:32] LABS: Prealbumin 38.1 mg/dL (20.0-40.0)
--- NOTE | 2023-09-05 09:00 | NURSING ---
this RN spoke at length w/pt's son, dtr-in-law and dtr. disc pt current condition, refusal of dialysis and all po meds. attempt made to discuss hospice/full code and pt right to decide. Son and DIL are refering all decision making to Dtr in [place]. Dr. Casas is aware .
--- NOTE | 2023-09-05 09:24 | CASEMGMT ---
Patient is from [facility] for short term rehab. SW will check with family to confirm d/c plan. Janeth Rahman MSW [facility]
--- NOTE | 2023-09-05 09:47 | NURSING ---
pt now refusing PRBC and all meds. disc importance of medication of healing and improving her phy condition. she indicates understanding and cont to refuse. dr Casas aware
[2023-09-05 10:16] LABS: Mucous, Urine 0 SEEN /hpf (<or=2+)
[2023-09-05 10:24] LABS: Color, Urine Yellow (Yellow); Glucose, Dipstick 100 mg/dl (Normal); Ketone-Dipstick Negative (Negative); Leukocyte Esterase-Dipstick 25 /ul (Negative); Nitrite-Dipstick Negative (Negative); Occult Blood-Urine 150 /ul (Negative); Protein-Dipstick 500 mg/dl (Negative); Specific Gravity, Urine 1.015 (1.002-1.030); Urine Bilirubin Dipstick Negative (Negative); Urine Clarity Clear (Clear); Urine Urobilinogen Normal (Normal)
[2023-09-05 10:34] LABS: Bacteria 1+ /hpf (None Seen); Red Blood Cells-Urine 10-25 SEEN /hpf (0-5); Squamous Epithelial Cells - UA 0-5 SEEN /hpf (5-10); White Blood Cells 0-5 SEEN /hpf (0-5)
[2023-09-05] MEDS: NICARdipine 25 MG in 0.9% Normal Saline (250mL Bag) 240 ML CONT INF (10:50)
--- NOTE | 2023-09-05 12:15 | NURSING ---
per pts dtr (Dr. Jackelyn Ontiveros) request, spoke again w/her re pt POC and current choice to refuse all tx/meds. She again expresses frustration w/steriods not being given. This RN notified her of Dr. Casas's consult for GI and neuro, the pt consistently CAM neg/AOx3, conversant w/friends. She again disc pt behavior changes in the last few weeks expressing concern about a positive antibody test. Again, mentioned neuro consultation and that Dr. Casas has specifically request neurologist to call her. She was appreciative and the call was ended. This RN then disc w/pt her refusal of treatment along with refusal to disc w/family or this RN her wishes. She just politely says I'm not discussing this and closes her eyes.
--- NOTE | 2023-09-05 14:01 | CON.PCM.NE_ITS ---
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 Exam is limited by participation. However, to the extent she does participate I do not believe she lacks capacity. Any confusion she does have is likely multifactorial given noted hypertensive urgency, recently aborted hemodialysis session, infection, and multiple chronic diseases. Any 82 year old patient is at risk of hospital delirium. Diagnosis: at risk for delirum (Z91.89) Plan: Continue treatment of medical comorbidities including ESRD, PNA, HTN Delirium precautions: avoid or minimize sedating and anticholinergic medicat ions, reorient as possible, encourage day/night sleep cycle, provide sensory aides including glasses and hearing aides as possible I personally attended this patient and spent a total time of 31 minutes evaluating this patient including clinical assessment, review of chart, medical history imaging, and determining appropriate treatment and workup. 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 She has had multiple presentations with a similar clinical picture. She does not want to provide any history today but upon questioning says she is here for pneumonia. She refuses many specific questions and portions of our teleneurology exam. [facility] Medical History Anemia Arthritis Bilateral lower extremity edema Cancer Cardiomyopathy CKD (chronic kidney disease) stage 5, GFR less than 15 ml/min ESRD on dialysis Gastric reflux Glaucoma Heart failure Heart murmur Hx of fracture of wrist Hyperlipidemia Hypertension Hypothyroidism Kidney failure Lumbar spinal stenosis Macular degeneration Mitral regurgitation Osteoporosis Rheumatoid arthritis Shortness of breath on exertion Sjogren syndrome with inflammatory arthritis Thyroid disease Type 2 diabetes mellitus Vertigo Home Medications ascorbic acid (vitamin C) 1,000 mg tablet,extended release (Vitamin C ER) 1,000 mg PO DAILY supplement 06/13/22 [History Last Taken Unknown] bimatoprost 0.01 % eye drops (Lumigan) 1 drp EACH EYE QHS eye drop 06/13/22 [History Last Taken Unknown] carvedilol 12.5 mg tablet 12.5 mg PO BID BLOOD PRESSURE 06/13/22 [History Last Taken 08/22/22 06:00] famotidine 40 mg tablet 40 mg PO DAILY stomach 06/13/22 [History Last Taken Unknown] folic acid 1 mg tablet 1 mg PO DAILY supplement 06/13/22 [History Last Taken Unknown] levothyroxine 25 mcg tablet 25 mcg PO DAILY thryoid 06/13/22 [History Last Taken 10/10/22] multivitamin 1 tab PO DAILY supplement 06/13/22 [History Last Taken Unknown] Juxta Lite #2 ea 08/15/22 [Rx Last Taken Unknown] doxazosin 2 mg tablet (Cardura) 2 mg PO BID 3 months #180 tabs 08/15/22 [Rx Last Taken 08/22/22 06:00] furosemide 40 mg tablet (Lasix) 60 mg PO BID water pill 08/15/22 [History Last Taken Unknown] icosapent ethyl 1 gram capsule (Vascepa) 2 g (2 x 1 gram) PO BID #180 caps 08/15/22 [Rx Last Taken Unknown] acetaminophen 325 mg capsule (Tylenol) 650 mg PO Q4H pain or fever 10/03/22 [History Last Taken Unknown] lidocaine 5 % topical patch 1 patch topical Q24H pain patch 01/30/23 [History Last Taken Unknown] hydralazine 50 mg tablet 50 mg PO .QID 3 months #360 tabs 06/05/23 [Rx Last Taken Unknown] gabapentin 100 mg capsule 200 mg (2 x 100 mg) PO DAILY PRN Neuropathy 3 months #90 caps 06/27/23 [Rx Last Taken Unknown] pantoprazole 40 mg tablet,delayed release 40 mg PO PRN Indigestion 06/30/23 [History Last Taken Unknown] nifedipine 60 mg tablet,extended release 60 mg PO BID BLOOD PRESSURE 07/16/23 [History Last Taken Unknown] nifedipine 60 mg tablet,extended release 24 hr 60 mg PO BID #60 tabs 07/19/23 [Rx Last Taken Unknown] amlodipine 10 mg tablet 10 mg PO DAILY blood pressure 07/22/23 [History Last Taken Unknown] acetaminophen 650 mg rectal suppository 650 mg GA Q4H PRN fever or pain 09/04/23 [History Last Taken Unknown] aluminum-magnesium hydroxide 225 mg-200 mg/5 mL oral suspension 30 ml PO Q4H 09/04/23 [History Last Taken Unknown] bisacodyl 10 mg rectal suppository 10 mg GA DAILY PRN constipation 09/04/23 [History Last Taken Unknown] cefdinir 300 mg capsule 300 mg PO BID 09/04/23 [History Last Taken Unknown] Allergy/AdvReac Type Severity Reaction Status Date / Time beef derived (bovine) Allergy Unknown PT UNABLE Verified 09/04/23 18:47 TO RESPOND-NEEDS F/U Pork/Porcine Containing Allergy Unknown PT UNABLE Verified 09/04/23 18:47 Products TO RESPOND-NEEDS F/U adalimumab [From Humira] Allergy Hives Verified 09/04/23 18:47 Family History Mother Heart disease Hypertension Osteoporosis Father CVA (cerebral vascular accident) Hypertension Surgical History H/O transurethral resection of bladder tumor (TURBT) History of bladder surgery History of nephrectomy Hx of colonoscopy S/P partial hysterectomy S/P total knee arthroplasty S/P vein stripping Social History household members: family Smoking Status: Never smoker alcohol intake: never substance use type: does not use Vital Signs Vital Signs Vital Signs: 09/04/23 18:47 09/04/23 18:47 09/04/23 20:47 Temperature 96.7 F L Temperature Source Temporal Pulse Rate 77 82 Respiratory Rate 20 H 20 H Respiratory Effort Normal Non-Labored Respiratory Depth Respiratory Pattern Normal Normal Blood Pressure 190/90 H Blood Pressure Mean 123 Blood Pressure Source Blood Pressure Position Blood Pressure Location Pulse Ox 95 Oxygen Delivery Method Room Air 09/04/23 20:47 09/04/23 21:38 09/04/23 22:00 Temperature 98.9 F Temperature Source Pulse Rate 68 76 83 Respiratory Rate 16 28 H 23 H Respiratory Effort Respiratory Depth Respiratory Pattern Blood Pressure 231/72 H 207/66 H 159/53 H Blood Pressure Mean 125 113 88 Blood Pressure Source Blood Pressure Position Blood Pressure Location Pulse Ox 98 98 98 Oxygen Delivery Method Room Air Room Air 09/04/23 23:22 09/04/23 23:30 09/04/23 23:45 Temperature Temperature Source Pulse Rate 80 74 Respiratory Rate Respiratory Effort Respiratory Depth Respiratory Pattern Blood Pressure 213/63 H 190/63 H 144/50 H Blood Pressure Mean 113 105 81 Blood Pressure Source Monitor Monitor Monitor Blood Pressure Position Blood Pressure Location Pulse Ox Oxygen Delivery Method 09/05/23 00:00 09/05/23 00:15 09/04/23 22:43 Temperature 97.7 F L Temperature Source Temporal Pulse Rate 70 98 Respiratory Rate 16 18 Respiratory Effort Respiratory Depth Respiratory Pattern Blood Pressure 122/59 H 126/53 H 223/89 H Blood Pressure Mean 80 77 133 Blood Pressure Source Monitor Monitor Monitor Blood Pressure Position Blood Pressure Location Pulse Ox 96 99 Oxygen Delivery Method Room Air Room Air 09/04/23 22:45 09/04/23 23:00 09/04/23 23:15 Temperature Temperature Source Pulse Rate 101 H 76 76 Respiratory Rate 19 H 16 18 Respiratory Effort Respiratory Depth Respiratory Pattern Blood Pressure 239/85 H 214/70 H 213/63 H Blood Pressure Mean 136 118 113 Blood Pressure Source Monitor Monitor Monitor Blood Pressure Position Blood Pressure Location Pulse Ox 98 98 99 Oxygen Delivery Method Room Air Room Air Room Air 09/04/23 23:15 09/05/23 00:30 09/05/23 00:45 Temperature Temperature Source Pulse Rate 68 Respiratory Rate Respiratory Effort Normal Non-Labored Respiratory Depth Normal Respiratory Pattern Normal Blood Pressure 147/57 H 133/57 H Blood Pressure Mean 87 82 Blood Pressure Source Monitor Monitor Blood Pressure Position Blood Pressure Location Pulse Ox Oxygen Delivery Method 09/05/23 01:00 09/05/23 01:30 09/05/23 02:00 Temperature Temperature Source Pulse Rate 66 78 61 Respiratory Rate 18 12 Respiratory Effort Respiratory Depth Respiratory Pattern Blood Pressure 186/59 H 169/52 H 142/49 H Blood Pressure Mean 101 91 80 Blood Pressure Source Monitor Monitor Monitor Blood Pressure Position Blood Pressure Location Pulse Ox 97 98 Oxygen Delivery Method Room Air Room Air 09/05/23 02:00 09/05/23 03:00 09/05/23 03:15 Temperature Temperature Source Pulse Rate 70 70 Respiratory Rate 14 Respiratory Effort Normal Non-Labored Respiratory Depth Normal Respiratory Pattern Normal Blood Pressure 222/67 H 207/58 H Blood Pressure Mean 118 107 Blood Pressure Source Monitor Monitor Blood Pressure Position Blood Pressure Location Pulse Ox 98 Oxygen Delivery Method Room Air 09/05/23 03:30 09/05/23 03:45 09/05/23 04:00 Temperature Temperature Source Pulse Rate 71 67 67 Respiratory Rate 14 Respiratory Effort Respiratory Depth Respiratory Pattern Blood Pressure 171/58 H 172/63 H 165/66 H Blood Pressure Mean 95 99 99 Blood Pressure Source Monitor Monitor Monitor Blood Pressure Position Blood Pressure Location Pulse Ox 96 Oxygen Delivery Method Room Air 09/05/23 05:00 09/05/23 04:30 09/05/23 06:00 Temperature Temperature Source Pulse Rate 73 75 Respiratory Rate 16 Respiratory Effort Normal Non-Labored Respiratory Depth Normal Respiratory Pattern Normal Blood Pressure 180/64 H 180/65 H Blood Pressure Mean 102 103 Blood Pressure Source Monitor Monitor Blood Pressure Position Blood Pressure Location Pulse Ox 96 Oxygen Delivery Method Room Air 09/05/23 06:00 09/05/23 07:00 09/05/23 09:26 Temperature Temperature Source Pulse Rate 73 73 79 Respiratory Rate 15 16 Respiratory Effort Respiratory Depth Respiratory Pattern Blood Pressure 161/65 H 161/61 H 149/91 H Blood Pressure Mean 97 94 Blood Pressure Source Monitor Monitor Blood Pressure Position Blood Pressure Location Pulse Ox 95 97 Oxygen Delivery Method Room Air Room Air 09/05/23 07:30 09/05/23 07:45 09/05/23 08:00 Temperature Temperature Source Pulse Rate 66 75 73 Respiratory Rate 13 20 H 18 Respiratory Effort Respiratory Depth Respiratory Pattern Blood Pressure 182/58 H 162/62 H 180/60 H Blood Pressure Mean 99 95 100 Blood Pressure Source Monitor Monitor Monitor Blood Pressure Position Semi-Fowlers Semi-Fowlers Semi-Fowlers Blood Pressure Location Right Arm Right Arm Right Arm Pulse Ox 97 97 96 Oxygen Delivery Method Room Air Room Air Room Air 09/05/23 08:30 09/05/23 08:45 09/05/23 09:30 Temperature Temperature Source Pulse Rate 75 75 77 Respiratory Rate 19 H 17 20 H Respiratory Effort Respiratory Depth Respiratory Pattern Blood Pressure 186/65 H 183/59 H 182/75 H Blood Pressure Mean 105 100 110 Blood Pressure Source Monitor Monitor Monitor Blood Pressure Position Semi-Fowlers Semi-Fowlers Semi-Fowlers Blood Pressure Location Right Arm Right Arm Right Arm Pulse Ox 96 96 97 Oxygen Delivery Method Room Air Room Air Room Air 09/05/23 09:00 09/05/23 10:00 09/05/23 11:00 Temperature Temperature Source Pulse Rate 80 Respiratory Rate 17 Respiratory Effort Respiratory Depth Respiratory Pattern Blood Pressure 173/64 H 166/50 H 176/59 H Blood Pressure Mean 100 88 98 Blood Pressure Source Monitor Blood Pressure Position Semi-Fowlers Blood Pressure Location Right Arm Pulse Ox 96 Oxygen Delivery Method Room Air 09/05/23 12:00 09/05/23 08:15 09/05/23 09:00 Temperature 98.0 F 97.6 F L Temperature Source Temporal Temporal Pulse Rate 85 74 76 Respiratory Rate 21 H 19 H 18 Respiratory Effort Respiratory Depth Respiratory Pattern Blood Pressure 173/64 H 181/64 H 173/64 H Blood Pressure Mean 100 103 100 Blood Pressure Source Monitor Monitor Monitor Blood Pressure Position Semi-Fowlers Semi-Fowlers Semi-Fowlers Blood Pressure Location Right Arm Right Arm Right Arm Pulse Ox 98 96 96 Oxygen Delivery Method Room Air Room Air Room Air 09/05/23 10:00 09/05/23 10:30 09/05/23 13:00 Temperature Temperature Source Pulse Rate 75 74 81 Respiratory Rate 16 14 21 H Respiratory Effort Respiratory Depth Respiratory Pattern Blood Pressure 166/50 H 156/51 H 173/61 H Blood Pressure Mean 88 86 98 Blood Pressure Source Monitor Monitor Monitor Blood Pressure Position Semi-Fowlers Semi-Fowlers Semi-Fowlers Blood Pressure Location Right Arm Right Arm Right Arm Pulse Ox 97 97 98 Oxygen Delivery Method Room Air Room Air Room Air 09/05/23 13:00 09/05/23 13:51 Temperature Temperature Source Pulse Rate 81 Respiratory Rate Respiratory Effort Respiratory Depth Respiratory Pattern Blood Pressure 173/61 H 173/61 H Blood Pressure Mean 98 Blood Pressure Source Blood Pressure Position Blood Pressure Location Pulse Ox Oxygen Delivery Method Weight Weight: 43.9 kg Body Mass Index (BMI) 18.8 EEG Results Procedure Details EEG Procedure Details: MONA ESTRELLA is a 82 year old F with a past medical history of , who presents for evaluation of Electroencephalogram on DATE at TIME Physical Exam Neuro Neuro Narrative: Exam is significantly limited by participation. Not attending to internal stimuli. She is oriented to place, time, and situation. Good eye contact. Affect congruent with mood. Follows crossed commands Declines to perform arithmetic or name current president or name days of week backwards Declines to recall memory words EOMI, no ptosis, no facial droop, smile and grimace symmetric, tongue protrusion midline, head rotation intact, sensation intact in V1/2/3 bilaterally. Moving all extremities spontaneously, though formal manual muscle testing limited by participation. Sensation to light touch intact in all distal extremities. Nursing points out intention tremor but I could not accurately assess severity/extent due to participation. Medical Records Data Medical Nutrition Assessment Dietitian: Malnutrition Criteria Met Start: 09/05/23 11:41 Freq: Status: Active Protocol: Document 09/05/23 11:41 SLA (Rec: 09/05/23 11:43 SLA Desktop) Nutrition Malnutrition Evidence of Malnutrition Exists Yes Malnutrition (moderate): Chronic Evidenced By Weight Loss (Severe),Physical Changes (Mild) Intake Problem Inadequate Oral Intake Etiology related to acute illness Signs/Symptoms as evidenced by NPO status Status Active Problem Clinical Problem Altered Nutrient-Related Laboratory Values Etiology related to hx ESRD w/ HD tx Signs/Symptoms as evidenced by BUN 47, Cr 4. 08 Status Active Problem Recommendation Dietitian Recommendations/Changes When medically able, rec HERMELINDA to Renal general - Consistent CHO diet with 4 oz nephro carb steady tid on meal trays for increased nutrition if consumed. Lab / Micro Data 09/05/23 03:05 09/05/23 03:05 Labs: Laboratory Results - last 24 hr 09/04/23 10:00: Urine Color Yellow, Urine Clarity Clear, Urine pH 9.0, Ur Specific [place] 1.015, Urine Protein 500 H, Urine Glucose (UA) 100 H, Urine Ketones Negative, Urine Occult Blood 150 H, Urine Nitrite Negative, Urine Bilirubin Negative, Urine Urobilinogen Normal, Ur Leukocyte Esterase 25 H, Urine RBC 10-25 SEEN, Urine WBC 0-5 SEEN, Ur Squamous Epith Cells 0-5 SEEN, Urine Bacteria 1+, Urine Mucus 0 SEEN 09/04/23 19:19: WBC 10.5, RBC 2.42 L, Hgb 7.4 L, Hct 23.0 L, MCV 95.0, MCH 30.6, MCHC 32.2, RDW Std Deviation 53.6 H, RDW Coeff of Wiliam 15.4 H, Plt Count 155, MPV 11.4, Immature Gran % (Auto) 2.500 H, Neut % (Auto) 71.3 H, Lymph % (Auto) 19.1, [place] % (Auto) 5.8, Eos % (Auto) 1.1, Baso % (Auto) 0.2, Absolute Neuts (auto) 7.5, Absolute Lymphs (auto) 2.00, Nucleated RBC % 0, Sodium 131 L, Potassium 5.7 H, Chloride 94 L, Carbon Dioxide 32.0, Anion Gap 5, BUN 47 H, Creatinine 4.09 H, Estim Creat Clear Calc 7.49, Est GFR (MDRD) Af Amer 13 L, Est GFR (MDRD) Non-Af 11 L, BUN/Creatinine Ratio 11.5, Glucose 126 H, Calcium 9.4, Total Bilirubin 0.40, AST 12 L, ALT 15, Alkaline Phosphatase 56, Total Protein 5.9 L, Albumin 2.9 L, Globulin 3.0, Albumin/Globulin Ratio 1.0, Lipase 96 H 09/04/23 23:05: Hemoglobin A1c 5.2, Iron 78, TIBC 257, Iron Saturation 30.4, Triglycerides 289 H, Cholesterol 195, LDL Cholesterol 80, VLDL Cholesterol 58 H, HDL Cholesterol 57, Vitamin B12 1238 H, Folate 45.20, TSH 3.55 09/05/23 00:20: Potassium 4.7 09/05/23 03:05: WBC 8.6, RBC 2.04 L, Hgb 6.1 L, Hct 19.5 L, MCV 95.6, MCH 29.9, MCHC 31.3 L, RDW Std Deviation 53.7 H, RDW Coeff of [place] 15.3 H, Plt Count 134 L, MPV 10.7, Immature Gran % (Auto) 2.200 H, Neut % (Auto) 67.8, Lymph % (Auto) 21.7, [place] % (Auto) 6.6, Eos % (Auto) 1.6, Baso % (Auto) 0.1, Absolute Neuts (auto) 5.8, Absolute Lymphs (auto) 1.86, Nucleated RBC % 0, Sodium 133 L, Potassium 4.7, Chloride 89 L, Carbon Dioxide 36.0 H, Anion Gap 8, BUN 47 H, Creatinine 4.08 H, Estim Creat Clear Calc 7.24, Est GFR (MDRD) Af Amer 13 L, Est GFR (MDRD) Non-Af 11 L, BUN/Creatinine Ratio 11.5, Glucose 181 H, Calcium 8.8, Phosphorus 4.6, Magnesium 2.1, Total Bilirubin 0.40, AST 11 L, ALT 14, Alkaline Phosphatase 44 L, Total Protein 4.9 L, Albumin 2.4 L, Globulin 2.5, Albumin/Globulin Ratio 1.0 09/05/23 04:17: Prealbumin 38.1 09/05/23 04:55: Blood Type O POSITIVE, Antibody Screen NEGATIVE, Crossmatch See Detail Imaging Radiology Impression Abdomen/Pelvis CT 09/04/23 19:04 IMPRESSION: 1. Status post right nephrectomy. 2. Cholelithiasis with no evidence of cholecystitis. No other acute abnormalities are identified. Electronically Signed: All Ames MD at 20:26 EDT , Chest X-Ray 09/04/23 20:40 IMPRESSION: No radiographic evidence of acute cardiopulmonary disease. Electronically Signed: All Ames MD at 20:50 EDT , Active Medications Active Medications Active Medications: Current Medications Generic Name Dose Route Start Last Admin Trade Name Freq PRN Reason Stop Dose Admin Acetaminophen 650 mg 09/04/23 22:50 Acetaminophen 325 Mg Tablet PO Q6H PRN PRN Pain 1-10 or Fever Acetaminophen 650 mg 09/04/23 22:50 Acetaminophen 650 Mg Suppository RC Q6H PRN PRN fever or pain Amlodipine Besylate 10 mg 09/05/23 10:00 09/05/23 09:28 Amlodipine 10 Mg Tablet PO Not Given DAILY [facility] Protocol Ascorbic Acid 1,000 mg 09/05/23 10:00 09/05/23 09:28 Ascorbic Acid 500 Mg Tablet PO Not Given DAILY [facility] Bisacodyl 10 mg 09/04/23 22:50 Bisacodyl 10 Mg Suppository RC DAILY PRN constipation Carvedilol 12.5 mg 09/05/23 10:00 09/05/23 09:27 Carvedilol 12.5 Mg Tablet PO Not Given BID [facility] Protocol Doxazosin Mesylate 2 mg 09/05/23 10:00 09/05/23 09:27 Doxazosin 4 Mg Tablet PO Not Given BID [facility] Folic Acid 1 mg 09/05/23 10:00 09/05/23 09:27 Folic Acid 1 Mg Tablet PO Not Given DAILY [facility] Furosemide 40 mg 09/05/23 10:00 09/05/23 09:27 Furosemide 40 Mg/4 Ml Vial IV Not Given DAILY [facility] Protocol Gabapentin 200 mg 09/05/23 10:00 Gabapentin 100 Mg Capsule PO DAILY PRN Neuropathy Hydralazine HCl 50 mg 09/05/23 10:00 09/05/23 13:51 Hydralazine 50 Mg Tablet PO Not Given 4X/DAY [facility] Protocol Pantoprazole Sodium 40 mg/ 110 mls @ 330 mls/hr 09/05/23 10:00 09/05/23 09:44 Sodium Chloride IV Not Given Q24 [facility] Nicardipine HCl 25 mg/ Sodium 250 mls @ 50 mls/hr 09/04/23 23:30 09/05/23 13:00 Chloride CONT INF 2.5 mg/hr .Q5H [place]ARD 25 mls/hr Titration Protocol 5 MG/HR Latanoprost 1 drp 09/04/23 22:00 09/04/23 23:37 Latanoprost 0.005% 1 Bottle EACH EYE 1 drp QHS [facility] Administration Levothyroxine Sodium 25 mcg 09/05/23 06:00 09/05/23 04:58 Levothyroxine 25 Mcg Tablet PO Not Given DAILY@0600 [facility] Lidocaine 1 patch 09/05/23 10:00 09/05/23 09:44 Lidocaine 5% Patch TOPICAL Not Given DAILY [facility] Protocol Magnesium Hydroxide 30 ml 09/05/23 10:00 Magnesium Hydroxide 30 Ml Udc PO Q4H PRN DYSPEPSIA Multivitamins 1 tablet 09/05/23 10:00 09/05/23 09:28 Multivitamins,Therapeutic Tablet PO Not Given DAILY [facility] Nitroglycerin 0.4 mg 09/04/23 22:50 Nitroglycerin (Inpatient Use) 0.4 Mg Tab.Subl SL Q5M PRN CARDIAC/CHEST PAIN Ondansetron HCl 4 mg 09/04/23 22:50 Ondansetron 4 Mg/2 Ml Vial IV Q8H PRN PRN NAUSEA/VOMITING Sodium Chloride 10 - 40 ml 09/04/23 22:49 0.9% Saline Lock 10 Ml Syringe IV UD PRN SALINE FLUSH
--- NOTE | 2023-09-05 16:27 | PCM.CONS.R ---
Assessment & Plan Assessment/Plan (1) ESRD on hemodialysis: PLAN: on HD at senior care 4 times a week. spoke to her for a bit today. she has had several hospitalizations recently. she is somewhat tired of this and is not sure if she wants to continue with all of this. however she is not ready to say no for everything either. she is leaning on family members to make that decision but they would prefer her to make that call. there is no consensus in family yet. I advised her that its really her call on what to do. she will talk to her family today evening. no dialysis today. will plan for dialysis tomorrow if she still wants full care. she also asked me what happens if she stops dialysis. explained that it might get life threatening at some point. all questions answered. HPI Consult Data Date of Consult: 09/05/23 HPI Narrative Reason for Consultation: ESRD HPI Narrative: MONA ESTRELLA, is a 82 F who presents to the hospital with abdomen pain. nephrology consultation for ESRD. on HD at senior care 4 times a week. currently being treated for hypertensive urgency and pneumonia. [facility] Medical History Anemia Arthritis Bilateral lower extremity edema Cancer Cardiomyopathy CKD (chronic kidney disease) stage 5, GFR less than 15 ml/min ESRD on dialysis Gastric reflux Glaucoma Heart failure Heart murmur Hx of fracture of wrist Hyperlipidemia Hypertension Hypothyroidism Kidney failure Lumbar spinal stenosis Macular degeneration Mitral regurgitation Osteoporosis Rheumatoid arthritis Shortness of breath on exertion Sjogren syndrome with inflammatory arthritis Thyroid disease Type 2 diabetes mellitus Vertigo Home Medications ascorbic acid (vitamin C) 1,000 mg tablet,extended release (Vitamin C ER) 1,000 mg PO DAILY supplement 06/13/22 [History Last Taken Unknown] bimatoprost 0.01 % eye drops (Lumigan) 1 drp EACH EYE QHS eye drop 06/13/22 [History Last Taken Unknown] carvedilol 12.5 mg tablet 12.5 mg PO BID BLOOD PRESSURE 06/13/22 [History Last Taken 08/22/22 06:00] famotidine 40 mg tablet 40 mg PO DAILY stomach 06/13/22 [History Last Taken Unknown] folic acid 1 mg tablet 1 mg PO DAILY supplement 06/13/22 [History Last Taken Unknown] levothyroxine 25 mcg tablet 25 mcg PO DAILY thryoid 06/13/22 [History Last Taken 10/10/22] multivitamin 1 tab PO DAILY supplement 06/13/22 [History Last Taken Unknown] Juxta Jacke #2 ea 08/15/22 [Rx Last Taken Unknown] doxazosin 2 mg tablet (Cardura) 2 mg PO BID 3 months #180 tabs 08/15/22 [Rx Last Taken 08/22/22 06:00] furosemide 40 mg tablet (Lasix) 60 mg PO BID water pill 08/15/22 [History Last Taken Unknown] icosapent ethyl 1 gram capsule (Vascepa) 2 g (2 x 1 gram) PO BID #180 caps 08/15/22 [Rx Last Taken Unknown] acetaminophen 325 mg capsule (Tylenol) 650 mg PO Q4H pain or fever 10/03/22 [History Last Taken Unknown] lidocaine 5 % topical patch 1 patch topical Q24H pain patch 01/30/23 [History Last Taken Unknown] hydralazine 50 mg tablet 50 mg PO .QID 3 months #360 tabs 06/05/23 [Rx Last Taken Unknown] gabapentin 100 mg capsule 200 mg (2 x 100 mg) PO DAILY PRN Neuropathy 3 months #90 caps 06/27/23 [Rx Last Taken Unknown] pantoprazole 40 mg tablet,delayed release 40 mg PO PRN Indigestion 06/30/23 [History Last Taken Unknown] nifedipine 60 mg tablet,extended release 60 mg PO BID BLOOD PRESSURE 07/16/23 [History Last Taken Unknown] nifedipine 60 mg tablet,extended release 24 hr 60 mg PO BID #60 tabs 07/19/23 [Rx Last Taken Unknown] amlodipine 10 mg tablet 10 mg PO DAILY blood pressure 07/22/23 [History Last Taken Unknown] acetaminophen 650 mg rectal suppository 650 mg NV Q4H PRN fever or pain 09/04/23 [History Last Taken Unknown] aluminum-magnesium hydroxide 225 mg-200 mg/5 mL oral suspension 30 ml PO Q4H 09/04/23 [History Last Taken Unknown] bisacodyl 10 mg rectal suppository 10 mg NV DAILY PRN constipation 09/04/23 [History Last Taken Unknown] cefdinir 300 mg capsule 300 mg PO BID 09/04/23 [History Last Taken Unknown] Allergy/AdvReac Type Severity Reaction Status Date / Time beef derived (bovine) Allergy Unknown PT UNABLE Verified 09/04/23 18:47 TO RESPOND-NEEDS F/U Pork/Porcine Containing Allergy Unknown PT UNABLE Verified 09/04/23 18:47 Products TO RESPOND-NEEDS F/U adalimumab [From Humira] Allergy Hives Verified 09/04/23 18:47 Family History Mother Heart disease Hypertension Osteoporosis Father CVA (cerebral vascular accident) Hypertension Surgical History H/O transurethral resection of bladder tumor (TURBT) History of bladder surgery History of nephrectomy Hx of colonoscopy S/P partial hysterectomy S/P total knee arthroplasty S/P vein stripping Social History household members: family Smoking Status: Never smoker alcohol intake: never substance use type: does not use ROS ROS Narrative negative except above Physical Exam Narrative Alert awake oriented x 3 no obvious distress no pallor no icterus no JVD s1s2 no murmurs lungs clear abdomen soft no organomegaly no edema no cyanosis Medical Records Data Medical Nutrition Assessment Dietitian: Malnutrition Criteria Met Start: 09/05/23 11:41 Freq: Status: Active Protocol: Document 09/05/23 11:41 SLA (Rec: 09/05/23 11:43 SLA Desktop) Nutrition Malnutrition Evidence of Malnutrition Exists Yes Malnutrition (moderate): Chronic Evidenced By Weight Loss (Severe),Physical Changes (Mild) Intake Problem Inadequate Oral Intake Etiology related to acute illness Signs/Symptoms as evidenced by NPO status Status Active Problem Clinical Problem Altered Nutrient-Related Laboratory Values Etiology related to hx ESRD w/ HD tx Signs/Symptoms as evidenced by BUN 47, Cr 4. 08 Status Active Problem Recommendation Dietitian Recommendations/Changes When medically able, rec HERMELINDA to Renal general - Consistent CHO diet with 4 oz nephro carb steady tid on meal trays for increased nutrition if consumed. Lab / Micro Data 09/05/23 03:05 09/05/23 03:05 Labs: Laboratory Results - last 24 hr 09/04/23 10:00: Urine Color Yellow, Urine Clarity Clear, Urine pH 9.0, Ur Specific [place] 1.015, Urine Protein 500 H, Urine Glucose (UA) 100 H, Urine Ketones Negative, Urine Occult Blood 150 H, Urine Nitrite Negative, Urine Bilirubin Negative, Urine Urobilinogen Normal, Ur Leukocyte Esterase 25 H, Urine RBC 10-25 SEEN, Urine WBC 0-5 SEEN, Ur Squamous Epith Cells 0-5 SEEN, Urine Bacteria 1+, Urine Mucus 0 SEEN 09/04/23 19:19: WBC 10.5, RBC 2.42 L, Hgb 7.4 L, Hct 23.0 L, MCV 95.0, MCH 30.6, MCHC 32.2, RDW Std Deviation 53.6 H, RDW Coeff of [place]ili[place] 15.4 H, Plt Count 155, MPV 11.4, Immature Gran % (Auto) 2.500 H, Neut % (Auto) 71.3 H, Lymph % (Auto) 19.1, Brown % (Auto) 5.8, Eos % (Auto) 1.1, Baso % (Auto) 0.2, Absolute Neuts (auto) 7.5, Absolute Lymphs (auto) 2.00, Nucleated RBC % 0, Sodium 131 L, Potassium 5.7 H, Chloride 94 L, Carbon Dioxide 32.0, Anion Gap 5, BUN 47 H, Creatinine 4.09 H, Estim Creat Clear Calc 7.49, Est GFR (MDRD) Af Amer 13 L, Est GFR (MDRD) Non-Af 11 L, BUN/Creatinine Ratio 11.5, Glucose 126 H, Calcium 9.4, Total Bilirubin 0.40, AST 12 L, ALT 15, Alkaline Phosphatase 56, Total Protein 5.9 L, Albumin 2.9 L, Globulin 3.0, Albumin/Globulin Ratio 1.0, Lipase 96 H 09/04/23 23:05: Hemoglobin A1c 5.2, Iron 78, TIBC 257, Iron Saturation 30.4, Triglycerides 289 H, Cholesterol 195, LDL Cholesterol 80, VLDL Cholesterol 58 H, HDL Cholesterol 57, Vitamin B12 1238 H, Folate 45.20, TSH 3.55 09/05/23 00:20: Potassium 4.7 09/05/23 03:05: WBC 8.6, RBC 2.04 L, Hgb 6.1 L, Hct 19.5 L, MCV 95.6, MCH 29.9, MCHC 31.3 L, RDW Std Deviation 53.7 H, RDW Coeff of [place]ili[place] 15.3 H, Plt Count 134 L, MPV 10.7, Immature Gran % (Auto) 2.200 H, Neut % (Auto) 67.8, Lymph % (Auto) 21.7, Brown % (Auto) 6.6, Eos % (Auto) 1.6, Baso % (Auto) 0.1, Absolute Neuts (auto) 5.8, Absolute Lymphs (auto) 1.86, Nucleated RBC % 0, Sodium 133 L, Potassium 4.7, Chloride 89 L, Carbon Dioxide 36.0 H, Anion Gap 8, BUN 47 H, Creatinine 4.08 H, Estim Creat Clear Calc 7.24, Est GFR (MDRD) Af Amer 13 L, Est GFR (MDRD) Non-Af 11 L, BUN/Creatinine Ratio 11.5, Glucose 181 H, Calcium 8.8, Phosphorus 4.6, Magnesium 2.1, Total Bilirubin 0.40, AST 11 L, ALT 14, Alkaline Phosphatase 44 L, Total Protein 4.9 L, Albumin 2.4 L, Globulin 2.5, Albumin/Globulin Ratio 1.0 09/05/23 04:17: Prealbumin 38.1 09/05/23 04:55: Blood Type O POSITIVE, Antibody Screen NEGATIVE, Crossmatch See Detail Imaging Radiology Impression Abdomen/Pelvis CT 09/04/23 19:04 IMPRESSION: 1. Status post right nephrectomy. 2. Cholelithiasis with no evidence of cholecystitis. No other acute abnormalities are identified. Electronically Signed: All Ames MD at 20:26 EDT , Chest X-Ray 09/04/23 20:40 IMPRESSION: No radiographic evidence of acute cardiopulmonary disease. Electronically Signed: All Ames MD at 20:50 EDT ,
--- NOTE | 2023-09-05 17:34 | PCM.PN.HOSP ---
Reason for Visit Reason for Visit: Abdominal pain/nausea/vomiting/confusion Subjective Subjective Patient is alert and oriented x 3. She states she does not want dialysis today. She has been refusing her p.o. medications and her hemoglobin was 6.1 and she refused a blood transfusion today. I talked with her about goals of care and her overall desires. It sounds like she would very much that she would like to be hospice however there seems to be some conflicting opinion on this throughout the family from what I can tell there is a daughter in [place] who is pushing her to be full code but family who is more local is receptive to hospice. I strongly encouraged her to talk this over further with her family as she is competent and has the capacity to make her own decisions per neurology's evaluation earlier today and I agree on my evaluation. Dr. Ballesteros also talked to her and they are from the same region of [facility] and was able to talk to her in her [place] language had conversation with her as well and it sounds as if that she is close to wanting to go hospice and will make that decision on her own up until this point she has been deferring to family. He did indicate there are some cultural dynamics that have probably led her to be less involved in her decision making up until this point. Patient did tell nursing staff earlier that she just wants her family to take her home and ask if they can take her home tonight. Objective Data Objective Data Vital Signs: Vital Signs Temp Pulse Resp BP Pulse Ox O2 Del Method 98.0 F 96 19 H 146/104 H 97 Room Air 09/05/23 12:00 09/05/23 17:00 09/05/23 17:00 09/05/23 17:15 09/05/23 17:00 09/05/23 17:00 Oxygen Delivery Method Room Air Weight: 43.9 kg Body Mass Index (BMI) 18.8 Intake & Output: Intake and Output for Last 24 Hours 09/03/23 09/04/23 09/05/23 23:59 23:59 23:59 Intake Total 119.17 / 125.42 1803.75 / 1803.75 Output Total 290 / 290 Balance 119.17 / 125.42 1513.75 / 1513.75 Medical Nutrition Assessment Dietitian: Malnutrition Criteria Met Start: 09/05/23 11:41 Freq: Status: Active Protocol: Document 09/05/23 11:41 [facility] (Rec: 09/05/23 11:43 [facility] Desktop) Nutrition Malnutrition Evidence of Malnutrition Exists Yes Malnutrition (moderate): Chronic Evidenced By Weight Loss (Severe),Physical Changes (Mild) Intake Problem Inadequate Oral Intake Etiology related to acute illness Signs/Symptoms as evidenced by NPO status Status Active Problem Clinical Problem Altered Nutrient-Related Laboratory Values Etiology related to hx ESRD w/ HD tx Signs/Symptoms as evidenced by BUN 47, Cr 4. 08 Status Active Problem Recommendation Dietitian Recommendations/Changes When medically able, rec HERMELINDA to Renal general - Consistent CHO diet with 4 oz nephro carb steady tid on meal trays for increased nutrition if consumed. Lab / Micro Data 09/05/23 03:05 09/05/23 03:05 Labs: Laboratory Results - last 24 hr 09/04/23 10:00: Urine Color Yellow, Urine Clarity Clear, Urine pH 9.0, Ur Specific [place] 1.015, Urine Protein 500 H, Urine Glucose (UA) 100 H, Urine Ketones Negative, Urine Occult Blood 150 H, Urine Nitrite Negative, Urine Bilirubin Negative, Urine Urobilinogen Normal, Ur Leukocyte Esterase 25 H, Urine RBC 10-25 SEEN, Urine WBC 0-5 SEEN, Ur Squamous Epith Cells 0-5 SEEN, Urine Bacteria 1+, Urine Mucus 0 SEEN 09/04/23 19:19: WBC 10.5, RBC 2.42 L, Hgb 7.4 L, Hct 23.0 L, MCV 95.0, MCH 30.6, MCHC 32.2, RDW Std Deviation 53.6 H, RDW Coeff of Wiliam 15.4 H, Plt Count 155, MPV 11.4, Immature Gran % (Auto) 2.500 H, Neut % (Auto) 71.3 H, Lymph % (Auto) 19.1, [place] % (Auto) 5.8, Eos % (Auto) 1.1, Baso % (Auto) 0.2, Absolute Neuts (auto) 7.5, Absolute Lymphs (auto) 2.00, Nucleated RBC % 0, Sodium 131 L, Potassium 5.7 H, Chloride 94 L, Carbon Dioxide 32.0, Anion Gap 5, BUN 47 H, Creatinine 4.09 H, Estim Creat Clear Calc 7.49, Est GFR (MDRD) Af Amer 13 L, Est GFR (MDRD) Non-Af 11 L, BUN/Creatinine Ratio 11.5, Glucose 126 H, Calcium 9.4, Total Bilirubin 0.40, AST 12 L, ALT 15, Alkaline Phosphatase 56, Total Protein 5.9 L, Albumin 2.9 L, Globulin 3.0, Albumin/Globulin Ratio 1.0, Lipase 96 H 09/04/23 23:05: Hemoglobin A1c 5.2, Iron 78, TIBC 257, Iron Saturation 30.4, Triglycerides 289 H, Cholesterol 195, LDL Cholesterol 80, VLDL Cholesterol 58 H, HDL Cholesterol 57, Vitamin B12 1238 H, Folate 45.20, TSH 3.55 09/05/23 00:20: Potassium 4.7 09/05/23 03:05: WBC 8.6, RBC 2.04 L, Hgb 6.1 L, Hct 19.5 L, MCV 95.6, MCH 29.9, MCHC 31.3 L, RDW Std Deviation 53.7 H, RDW Coeff of Wiliam 15.3 H, Plt Count 134 L, MPV 10.7, Immature Gran % (Auto) 2.200 H, Neut % (Auto) 67.8, Lymph % (Auto) 21.7, [place] % (Auto) 6.6, Eos % (Auto) 1.6, Baso % (Auto) 0.1, Absolute Neuts (auto) 5.8, Absolute Lymphs (auto) 1.86, Nucleated RBC % 0, Sodium 133 L, Potassium 4.7, Chloride 89 L, Carbon Dioxide 36.0 H, Anion Gap 8, BUN 47 H, Creatinine 4.08 H, Estim Creat Clear Calc 7.24, Est GFR (MDRD) Af Amer 13 L, Est GFR (MDRD) Non-Af 11 L, BUN/Creatinine Ratio 11.5, Glucose 181 H, Calcium 8.8, Phosphorus 4.6, Magnesium 2.1, Total Bilirubin 0.40, AST 11 L, ALT 14, Alkaline Phosphatase 44 L, Total Protein 4.9 L, Albumin 2.4 L, Globulin 2.5, Albumin/Globulin Ratio 1.0 09/05/23 04:17: Prealbumin 38.1 09/05/23 04:55: Blood Type O POSITIVE, Antibody Screen NEGATIVE, Crossmatch See Detail Radiography Diagnostic Testing: Radiology Impression Abdomen/Pelvis CT 09/04/23 19:04 IMPRESSION: 1. Status post right nephrectomy. 2. Cholelithiasis with no evidence of cholecystitis. No other acute abnormalities are identified. Electronically Signed: All Ames MD at 20:26 EDT , Chest X-Ray 09/04/23 20:40 IMPRESSION: No radiographic evidence of acute cardiopulmonary disease. Electronically Signed: All Ames MD at 20:50 EDT , Physical Exam Const alert, oriented x3 and no apparent distress; Negative for average body habitus, healthy appearing or well nourished Constitutional Narrative: Thin, elderly, [place] female, sitting up in bed, appears comfortable, nontoxic, appears to be frail Orientation / Consciousness: Negative for confused or disoriented HEENT head/scalp atraumatic and moist oral mucous membranes HEENT Narrative: Dentition is poor, Mallampati is 2, no thrush Head and Scalp: normocephalic Resp normal respiratory effort, no retractions, no use of accessory muscles and clear to auscultation bilaterally Auscultation: Negative for rales, rhonchi or wheezes Cardio regular rate, regular rhythm, S1 normal heart sound, S2 normal heart sound, no murmurs, no rub and no clicks Cardio Narrative: Positive S4 gallop no S3 GI normal to inspection, nondistended, normoactive bowel sounds, soft to palpation and non-tender Extremity Extremity Narrative: Left upper extremity dialysis fistula present with positive bruit and thrill, no clubbing or cyanosis or significant edema, pedal pulses are 2+ bilaterally Neuro oriented x3, moves all extremities and no focal motor deficits Neuro Narrative: Significant generalized weakness noted but no focal deficits Speech: speech normal Psych Psych Narrative: Affect is flat and mood seems somewhat depressed with intermittently poor eye contact depending on when I have seen her as I did see her a couple times today Assessment & Plan Assessment/Plan (1) Hypertensive encephalopathy: (2) Hyperkalemia: (3) Anemia: QUALIFIERS: Anemia type: unspecified type Qualified Code(s): D64.9 - Anemia, unspecified (4) Hypertensive crisis: PLAN: Plan Hypertensive crisis -Blood pressure on presentation was 231/72 -Patient had been refusing her medications orally at the nursing facility -Patient was placed on a Cardene drip -Current titration goals are for blood pressure systolic around 160 -Patient is still refusing p.o. medications so we will keep her on a Cardene drip for now Hyperkalemia -Resolved Hypertensive encephalopathy -Resolved -Patient was evaluated by neurology and feels that she has competency and the capacity to make decisions independently for herself Abdominal pain/nausea/vomiting -Currently no issues -Diet reinitiated with clears -Will advance to full's and to renal diet as tolerated next-if patient decides to proceed with hospice will transition to her general diet without any restriction Acute on chronic anemia -Hemoglobin 6.1 this morning -Iron studies ordered -Guaiac ordered -Patient was ordered 2 units of packed red blood cells however she is refusing transfusion at this time and given the fact that she has capacity per neurology we will continue to hold this and if she changes her mind it is available for transfusion Recent pneumonia -Chest x-ray on admission was unremarkable -Hold antibiotics History of metastatic renal cell carcinoma -History of right nephrectomy with local recurrence in bladder x 2 -I do get the impression the patient is tired of ongoing invasive treatment for this and ongoing dialysis as well as other medical therapies and would like to proceed with hospice however I have encouraged her to express her wishes to family as a seems to currently be the restriction to her proceeding with hospice care Severe malnutrition -Liberalize diet as able -Supplements added -Dietitian is following Hypothyroidism -Continue home Synthroid -TSH stable Hyperlipidemia -Continue home statin Chronic bilateral lower extremity edema -No significant edema noted at this time -Continue to monitor GERD -Continue PPI Glaucoma -Continue home therapy Rheumatoid arthritis -Continue home medication as able -Patient refusing DVT prophylaxis -Continue subcu Lovenox 30 mg daily CODE STATUS -Full code is verified on admission however on extensive discussion with patient and with Dr. Ballesteros who had an extensive discussion with the patient as well it does seem that she would like to go home with hospice. We reiterated the fact that she need to have further discussion with her family as she has capacity to make this decision but she needs to have everybody on board and make sure they know what her wishes are. If she does this this evening which it sounds like she is planning on doing will consult hospice and hopefully will be able to go home with hospice as this seems to be her desire. -Follow-up tomorrow Charges/Coding Visit Charges Inpatient E&M: 69964 Subs Hosp L2
[2023-09-05] MEDS: NICARdipine 25 MG in 0.9% Normal Saline (250mL Bag) 240 ML 50 MG CONT INF (18:28)
[2023-09-05] MEDS: TITRATION PARAMETER CHANGE 1 EACH IV (19:37)
--- NOTE | 2023-09-05 20:15 | NURSING ---
This RN spoke with pts son regarding plan of care. Family and pt decided they want to continue care including medications and dialysis. Pt was unsure about receiving blood transfusion. This RN called and spoke with son again explaining that her hemoglobin is 6.1 and she previously refused blood. Pt and son both agreeable to pt receiving blood this evening.
--- NOTE | 2023-09-05 20:38 | EX.PCM.CON.G ---
HPI Consult Data Date of Consult: 09/05/23 HPI Narrative Reason for Consultation: Anemia HPI Narrative: MONA ESTRELLA, is a 82 F who presents with generalized abdominal pain that started this morning. She reports that she did have a few episodes of nausea and vomiting this morning. She denies any history of abdominal surgeries. She is coming from [facility] reports that she has been more lethargic today and has been refusing care. She has a past medical history of essential hypertension, hyperlipidemia, hypothyroidism, history of metastatic renal cell carcinoma; status post Right nephrectomy with local recurrence in the bladder x 2; status post TURBT, end-stage renal disease on hemodialysis. She was at [facility] with patient having only underwent ~2.5-hours with session aborted due to abdominal pain. She has 2 recent admissions here in June 2023 and July 2023 for encephalopathy and recent diagnosis of pneumonia currently being treated with oral cefdinir 300 mg p.o. twice daily who presents to [facility]. At that time she also was complaining of abdominal pain, nausea, vomiting and confusion. She reports her symptoms began this morning with a generalized cramping abdominal pain followed by nausea and a few episodes of bilious emesis. She was also noted to be more lethargic and confused today and was refusing care with patient apparently having had consideration for hospice consultation during her last hospitalization at a tertiary care center as she is unsure if she wants to continue with hemodialysis. However, 2 of her children work for this facility and are both physicians and they have not yet come into agreement on what the plan for future care will be. She denies any fever, chills, dysuria, chest pain, shortness of breath or diarrhea. In the ER she was diagnosed with hypertensive crisis with a blood pressure of 231/72 mmHg shortly after admission complicated by laboratory evidence of hyperkalemia of 5.7 mmol/L and clinical evidence of hypertensive encephalopathy and she was then admitted to the ICU for treatment . Currently her blood pressure is 167/62, pulse 93, respirate of 17 and satting 99% on room air. She says she did have some ice cream today and it caused a little bit of abdominal pain. I was consulted due to her abdominal pain and worsening anemia. She says that she wants to get dialysis tomorrow and she has not decided whether she wants to pursue endoscopy to determine why she has abdominal pain or why she has worsening possible GI blood loss anemia. [facility] Medical History Anemia Arthritis Bilateral lower extremity edema Cancer Cardiomyopathy CKD (chronic kidney disease) stage 5, GFR less than 15 ml/min ESRD on dialysis Gastric reflux Glaucoma Heart failure Heart murmur Hx of fracture of wrist Hyperlipidemia Hypertension Hypothyroidism Kidney failure Lumbar spinal stenosis Macular degeneration Mitral regurgitation Osteoporosis Rheumatoid arthritis Shortness of breath on exertion Sjogren syndrome with inflammatory arthritis Thyroid disease Type 2 diabetes mellitus Vertigo Home Medications ascorbic acid (vitamin C) 1,000 mg tablet,extended release (Vitamin C ER) 1,000 mg PO DAILY supplement 06/13/22 [History Last Taken Unknown] bimatoprost 0.01 % eye drops (Lumigan) 1 drp EACH EYE QHS eye drop 06/13/22 [History Last Taken Unknown] carvedilol 12.5 mg tablet 12.5 mg PO BID BLOOD PRESSURE 06/13/22 [History Last Taken 08/22/22 06:00] famotidine 40 mg tablet 40 mg PO DAILY stomach 06/13/22 [History Last Taken Unknown] folic acid 1 mg tablet 1 mg PO DAILY supplement 06/13/22 [History Last Taken Unknown] levothyroxine 25 mcg tablet 25 mcg PO DAILY thryoid 06/13/22 [History Last Taken 10/10/22] multivitamin 1 tab PO DAILY supplement 06/13/22 [History Last Taken Unknown] Juxta Lite #2 ea 08/15/22 [Rx Last Taken Unknown] doxazosin 2 mg tablet (Cardura) 2 mg PO BID 3 months #180 tabs 08/15/22 [Rx Last Taken 08/22/22 06:00] furosemide 40 mg tablet (Lasix) 60 mg PO BID water pill 08/15/22 [History Last Taken Unknown] icosapent ethyl 1 gram capsule (Vascepa) 2 g (2 x 1 gram) PO BID #180 caps 08/15/22 [Rx Last Taken Unknown] acetaminophen 325 mg capsule (Tylenol) 650 mg PO Q4H pain or fever 10/03/22 [History Last Taken Unknown] lidocaine 5 % topical patch 1 patch topical Q24H pain patch 01/30/23 [History Last Taken Unknown] hydralazine 50 mg tablet 50 mg PO .QID 3 months #360 tabs 06/05/23 [Rx Last Taken Unknown] gabapentin 100 mg capsule 200 mg (2 x 100 mg) PO DAILY PRN Neuropathy 3 months #90 caps 06/27/23 [Rx Last Taken Unknown] pantoprazole 40 mg tablet,delayed release 40 mg PO PRN Indigestion 06/30/23 [History Last Taken Unknown] nifedipine 60 mg tablet,extended release 60 mg PO BID BLOOD PRESSURE 07/16/23 [History Last Taken Unknown] nifedipine 60 mg tablet,extended release 24 hr 60 mg PO BID #60 tabs 07/19/23 [Rx Last Taken Unknown] amlodipine 10 mg tablet 10 mg PO DAILY blood pressure 07/22/23 [History Last Taken Unknown] acetaminophen 650 mg rectal suppository 650 mg KS Q4H PRN fever or pain 09/04/23 [History Last Taken Unknown] aluminum-magnesium hydroxide 225 mg-200 mg/5 mL oral suspension 30 ml PO Q4H 09/04/23 [History Last Taken Unknown] bisacodyl 10 mg rectal suppository 10 mg KS DAILY PRN constipation 09/04/23 [History Last Taken Unknown] cefdinir 300 mg capsule 300 mg PO BID 09/04/23 [History Last Taken Unknown] Allergy/AdvReac Type Severity Reaction Status Date / Time beef derived (bovine) Allergy Unknown PT UNABLE Verified 09/04/23 18:47 TO RESPOND-NEEDS F/U Pork/Porcine Containing Allergy Unknown PT UNABLE Verified 09/04/23 18:47 Products TO RESPOND-NEEDS F/U adalimumab [From Humira] Allergy Hives Verified 09/04/23 18:47 Family History Mother Heart disease Hypertension Osteoporosis Father CVA (cerebral vascular accident) Hypertension Surgical History H/O transurethral resection of bladder tumor (TURBT) History of bladder surgery History of nephrectomy Hx of colonoscopy S/P partial hysterectomy S/P total knee arthroplasty S/P vein stripping Social History household members: family Smoking Status: Never smoker alcohol intake: never substance use type: does not use ROS ROS Narrative negative except above Physical Exam Const alert, oriented x3 and no apparent distress; Negative for average body habitus, healthy appearing or well nourished Orientation / Consciousness: Negative for confused or disoriented HEENT head/scalp atraumatic and moist oral mucous membranes HEENT Narrative: Dentition is poor, Mallampati is 2, no thrush Head and Scalp: normocephalic Resp normal respiratory effort, no retractions, no use of accessory muscles and clear to auscultation bilaterally Auscultation: Negative for rales, rhonchi or wheezes Cardio regular rate, regular rhythm, S1 normal heart sound, S2 normal heart sound, no murmurs, no rub and no clicks Cardio Narrative: Positive S4 gallop no S3 GI normal to inspection, nondistended, normoactive bowel sounds, soft to palpation and non-tender Extremity Extremity Narrative: Left upper extremity dialysis fistula present with positive bruit and thrill, no clubbing or cyanosis or significant edema, pedal pulses are 2+ bilaterally Neuro oriented x3, moves all extremities and no focal motor deficits Neuro Narrative: Significant generalized weakness noted but no focal deficits Speech: speech normal Psych Psych Narrative: Affect is flat and mood seems somewhat depressed with intermittently poor eye contact depending on when I have seen her as I did see her a couple times today Medical Records Data Medical Nutrition Assessment Dietitian: Malnutrition Criteria Met Start: 09/05/23 11:41 Freq: Status: Active Protocol: Document 09/05/23 11:41 SLA (Rec: 09/05/23 11:43 SLA Desktop) Nutrition Malnutrition Evidence of Malnutrition Exists Yes Malnutrition (moderate): Chronic Evidenced By Weight Loss (Severe),Physical Changes (Mild) Intake Problem Inadequate Oral Intake Etiology related to acute illness Signs/Symptoms as evidenced by NPO status Status Active Problem Clinical Problem Altered Nutrient-Related Laboratory Values Etiology related to hx ESRD w/ HD tx Signs/Symptoms as evidenced by BUN 47, Cr 4. 08 Status Active Problem Recommendation Dietitian Recommendations/Changes When medically able, rec HERMELINDA to Renal general - Consistent CHO diet with 4 oz nephro carb steady tid on meal trays for increased nutrition if consumed. Lab / Micro Data 09/05/23 03:05 09/05/23 03:05 Labs: Laboratory Results - last 24 hr 09/04/23 10:00: Urine Color Yellow, Urine Clarity Clear, Urine pH 9.0, Ur Specific Ewing 1.015, Urine Protein 500 H, Urine Glucose (UA) 100 H, Urine Ketones Negative, Urine Occult Blood 150 H, Urine Nitrite Negative, Urine Bilirubin Negative, Urine Urobilinogen Normal, Ur Leukocyte Esterase 25 H, Urine RBC 10-25 SEEN, Urine WBC 0-5 SEEN, Ur Squamous Epith Cells 0-5 SEEN, Urine Bacteria 1+, Urine Mucus 0 SEEN 09/04/23 23:05: Hemoglobin A1c 5.2, Iron 78, TIBC 257, Iron Saturation 30.4, Triglycerides 289 H, Cholesterol 195, LDL Cholesterol 80, VLDL Cholesterol 58 H, HDL Cholesterol 57, Vitamin B12 1238 H, Folate 45.20, TSH 3.55 09/05/23 00:20: Potassium 4.7 09/05/23 03:05: WBC 8.6, RBC 2.04 L, Hgb 6.1 L, Hct 19.5 L, MCV 95.6, MCH 29.9, MCHC 31.3 L, RDW Std Deviation 53.7 H, RDW Coeff of Wiliam 15.3 H, Plt Count 134 L, MPV 10.7, Immature Gran % (Auto) 2.200 H, Neut % (Auto) 67.8, Lymph % (Auto) 21.7, Mont[place] % (Auto) 6.6, Eos % (Auto) 1.6, Baso % (Auto) 0.1, Absolute Neuts (auto) 5.8, Absolute Lymphs (auto) 1.86, Nucleated RBC % 0, Sodium 133 L, Potassium 4.7, Chloride 89 L, Carbon Dioxide 36.0 H, Anion Gap 8, BUN 47 H, Creatinine 4.08 H, Estim Creat Clear Calc 7.24, Est GFR (MDRD) Af Amer 13 L, Est GFR (MDRD) Non-Af 11 L, BUN/Creatinine Ratio 11.5, Glucose 181 H, Calcium 8.8, Phosphorus 4.6, Magnesium 2.1, Total Bilirubin 0.40, AST 11 L, ALT 14, Alkaline Phosphatase 44 L, Total Protein 4.9 L, Albumin 2.4 L, Globulin 2.5, Albumin/Globulin Ratio 1.0 09/05/23 04:17: Prealbumin 38.1 09/05/23 04:55: Blood Type O POSITIVE, Antibody Screen NEGATIVE, Crossmatch See Detail Imaging Radiology Impression Chest X-Ray 09/04/23 20:40 IMPRESSION: No radiographic evidence of acute cardiopulmonary disease. Electronically Signed: All Ames MD at 20:50 EDT , Assessment & Plan Assessment/Plan (1) Hypertensive emergency: (2) Acute encephalopathy: (3) ESRD on dialysis: PLAN: Plan Patient is an 82-year-old female who presented to [facility] ED on 07/16/2023 with confusion and decreased responsiveness. She currently seems to have normal mental status as her blood pressure is is normal at this time. 1. Acute metabolic encephalopathy, CVA rule out ? Suspected secondary to hypertensive emergency as noted below. CT brain without contrast on admit nonacute. It seems to me that she is back to her baseline mental status. Pl 2. Hypertensive emergency Suspected secondary to volume overload with need for increased volume removal with hemodialysis. Chest x-ray on admit nonacute. CT brain nonacute. Echo showed EF 65%, stage I diastolic dysfunction, severe concentric LV hypertrophy, no valve abnormalities. ? Nephrology followed. Treated with Cardene drip on admission with improvement. Patient says she wants to be dialyzed tomorrow. 3. Acute on chronic anemia in the setting of abdominal pain -Differential diagnosis does include ischemic gastritis, duodenitis, colitis secondary to hypertensive urgency and a hemodialysis patient. Also different diagnosis includes peptic ulcer disease. She is very high risk for angiodysplasia and angioectasias due to being on hemodialysis. That also puts her at risk for gastric antral vascular ectasia and Mikael's erosions which can also cause anemia and a hemodialysis patient. At this time she does not want to undergo an endoscopy. I will continue to follow her and if she changes her mind I would be happy to help her as much as possible. For now 40 mg of Protonix every 12 hours. Charges/Coding Visit Charges Inpatient E&M: 76063 Init Hosp L3
[2023-09-05] MEDS: Latanoprost 0.005% 1 Bottle 1 DRP EACH EYE (20:48)
[2023-09-05] MEDS: Doxazosin 4 MG Tablet 2 MG PO (20:49)
[2023-09-05] MEDS: hydrALAZINE 50 MG Tablet PO (20:49)
[2023-09-05] MEDS: Carvedilol 12.5 MG Tablet PO (20:50)
[2023-09-05] MEDS: Lactobacillis Acidophilus 2 CAP PO (20:50)
[2023-09-06] VITALS (48 sets, daily range): BP systolic 1–253; BP diastolic 46–71; PULSE 66–101; RESP 13–25; TEMP 35.8–37.7; O2SAT 96–100; BMI 19.0; BMI 19.4; BMI 18.6
[2023-09-06] MEDS: Levothyroxine 25 MCG TABLET PO (05:17)
[2023-09-06] MEDS: NICARdipine 25 MG in 0.9% Normal Saline (250mL Bag) 240 ML 50 MG CONT INF (05:38)
[2023-09-06 05:56] LABS: Absolute Lymphocyte Count 1.37 X10^3/uL (0.83-4.51); Absolute Neutrophil Count 4.8 X10^3/uL (2.0-7.7); Basophil# 0.01 X10^3/uL; Basophil% 0.1 % (0-1); Eosinophil# 0.19 X10^3/uL; Eosinophils% 2.7 % (0-5); Hematocrit 25.2 % (37-47); Hemoglobin 8.2 g/dL (12.0-15.0); Lymphocyte # 1.37 X10^3/ul (0.83-4.51); Lymphocyte % 19.5 % (19-41); Mean Corp Hgb Conc 32.5 g/dL (32-36); Mean Corpuscular Hgb 30.1 pg (27.0-32.0); Mean Corpuscular Volume 92.6 fL (81-99); Mean Platelet Vol. 11.3 fl (6.2-12.0); Monocyte# 0.53 X10^3/uL; Monocyte% 7.5 % (0-10); NRBC Flagged by Analyzer 0 % (0-5); Neutrophil # 4.76 X10^3/uL (2.7-7.7); Neutrophil % 67.9 % (47-70); Platelet Count 118 K/mm3 (150-450); RBC Distribution Width CV 16.1 % (11.6-14.6); Red Blood Count 2.72 M/mm3 (4.2-5.4)
[2023-09-06 06:14] LABS: Anion Gap 8 (5-15); BUN 54 mg/dL (7-18); BUN/Creat Ratio 10.5 RATIO (10-20); Chloride 92 mmol/L (98-107); Creatinine, Serum 5.14 mg/dL (0.55-1.02); EST Glomerular Filtration Rate 9 mL/min (>60); Est Glom Filt Rate - Afr Amer 10 mL/min (>60); Estimated Creatinine Clearance 5.88 ml/min; Glucose 119 mg/dL (74-106); Potassium 4.8 mmol/L (3.5-5.1); Sodium Level 134 mmol/L (136-145)
[2023-09-06] MEDS: 0.9% Saline Lock 10 ML Syringe IV ×4 (08:17→20:46)
[2023-09-06] MEDS: PureFlow B 2K Dialysis Soln 1 BAG 6 BAG PF (08:18)
[2023-09-06] MEDS: 0.9% Normal Saline 1,000 ML IV.SOLN. 1000 ML OPERA.SITE (08:18)
[2023-09-06] MEDS: hydrALAZINE 50 MG Tablet PO ×2 (09:08→13:43)
[2023-09-06] MEDS: NICARdipine 25 MG in 0.9% Normal Saline (250mL Bag) 240 ML 75 MG CONT INF (09:08)
[2023-09-06] MEDS: Folic Acid 1 MG Tablet PO (09:09)
[2023-09-06] MEDS: Lactobacillis Acidophilus 2 CAP PO ×2 (09:09→20:38)
[2023-09-06] MEDS: Carvedilol 12.5 MG Tablet PO ×2 (09:09→20:39)
[2023-09-06] MEDS: Doxazosin 4 MG Tablet 2 MG PO (09:09)
[2023-09-06] MEDS: amLODIPine 10 MG Tablet PO (09:10)
[2023-09-06] MEDS: Furosemide 40 MG/4 ML Vial IV (09:10)
[2023-09-06] MEDS: Ascorbic Acid 500 MG Tablet 1000 MG PO (09:11)
[2023-09-06] MEDS: Pantoprazole Sodium 40 MG in 0.9% Normal Saline (100mL MB+) 100 ML 330 MG IV ×2 (09:18→20:38)
--- NOTE | 2023-09-06 12:10 | PCM.PN.HOSP ---
Reason for Visit Reason for Visit: Abdominal pain/nausea/vomiting/altered mental status Subjective Subjective Patient did agree to dialysis and has taken her p.o. meds and this morning. We have been able to discontinue the Cardene drip and her blood pressures are much improved with oral medications on board and dialysis complete. She also agreed to blood transfusion yesterday and her hemoglobin is improved. No complaints at this time however continues to appear disinterested in any conversation and ignores me when I walk in the room. I have to ask her question several times to even get a simple one-word response. With regards to her anemia I have recommended further workup with endoscopy and GI was consulted however the patient refused endoscopy. We are hoping tomorrow after given 1 dose of steroids IV that she will perk up and be able to be more amenable to endoscopy as I do feel if further steroids are warranted we need to rule out GI bleed. Guaiac is pending. Long discussion with her daughter Dr. Durand in [place] who is a vendor manager. She states she was recently here for 2 weeks and has been a lot of time with her mother. She was able to supply significant amount of history. Evidently up until about 2 months ago she was independent in her IADLs and ADLs at which time she started having some gross and fine motor control issues and decreased functional status. She eventually started having some personality changes. She states her mother typically was very appropriate and interactive with people. She became more withdrawn and started refusing a lot of care which is very atypical for her. Her daughter states she had multiple conversations with her at the time of recurrence diagnosis of her bladder cancer about pursuing hospice and the patient indicated she wanted proceed with aggressive care. She has been receiving BCG infusions. Due to her altered mental status she has been hospitalized a few times since that point in time with the initial admission being here where she had extensive workup including an MRI and an LP and evaluation by neurology. She then came back to the emergency department at which time she was transferred to [facility] in [place] where extensive workup was pursued. During that hospitalization she was placed on high-dose steroids initially with 100 mg and further workup was pursued with a lot of lab for paraneoplastic syndromes including Ca Chain Bind P/Q Lambrt and GAD65 both of which were noted to be elevated. The Ca Chain Bind P/Q Lambrt results have come back since she was discharged from the hospital. Her daughter stated that during the hospitalization with the high-dose steroids her personality seemed to return back to baseline but quickly deteriorated as they wean the steroids. While she was back at the intermediate receiving rehab they increased her steroids back to 60 mg at which time her daughter noted an improvement in her functional status as well as her personality. The steroids were tapered over a week and once they got to 30 mg on the steroids her personality again changed and she started refusing medications, dialysis, and other therapies so she was brought back to the hospital at this time. At this time we do have the results of the above noted abnormal paraneoplastic workup and the daughter is concerned that maybe this is contributing to her personality changes and functional decline. We have reconsulted [facility] neurology given the fact that we have more data. She is wondering if she would be appropriate for reinitiating steroids versus plasmapheresis versus other types of immune suppression would like neurology's further input. Neurology will see the patient later today and the plan is to have the patient be involved with this conversation to help with decision-making. Objective Data Objective Data Vital Signs: Vital Signs Temp Pulse Resp BP Pulse Ox O2 Del Method 97.6 F L 72 16 122/47 H 99 Room Air 09/06/23 10:00 09/06/23 11:00 09/06/23 11:00 09/06/23 11:00 09/06/23 11:00 09/06/23 11:00 Oxygen Delivery Method Room Air Weight: 43 kg Body Mass Index (BMI) 18.6 Intake & Output: Intake and Output for Last 24 Hours 09/04/23 09/05/23 09/06/23 23:59 23:59 23:59 Intake Total 119.17 / 125.42 2167.25 / 2167.25 385.00 / 385.00 Output Total 420 / 420 2280 / 2280 Balance 119.17 / 125.42 1747.25 / 1747.25 -1895.00 / -1895.00 Medical Nutrition Assessment Dietitian: Malnutrition Criteria Met Start: 09/05/23 11:41 Freq: Status: Active Protocol: Document 09/05/23 11:41 SLA (Rec: 09/05/23 11:43 SLA Desktop) Nutrition Malnutrition Evidence of Malnutrition Exists Yes Malnutrition (moderate): Chronic Evidenced By Weight Loss (Severe),Physical Changes (Mild) Intake Problem Inadequate Oral Intake Etiology related to acute illness Signs/Symptoms as evidenced by NPO status Status Active Problem Clinical Problem Altered Nutrient-Related Laboratory Values Etiology related to hx ESRD w/ HD tx Signs/Symptoms as evidenced by BUN 47, Cr 4. 08 Status Active Problem Recommendation Dietitian Recommendations/Changes When medically able, rec HERMELINDA to Renal general - Consistent CHO diet with 4 oz nephro carb steady tid on meal trays for increased nutrition if consumed. Lab / Micro Data 09/06/23 05:45 09/06/23 05:45 Labs: Laboratory Results - last 24 hr 09/05/23 04:55: Blood Type O POSITIVE, Antibody Screen NEGATIVE, Crossmatch See Detail 09/06/23 05:45: WBC 7.0, RBC 2.72 L, Hgb 8.2 L, Hct 25.2 L, MCV 92.6, MCH 30.1, MCHC 32.5, RDW Std Deviation 55.0 H, RDW Coeff of Wiliam 16.1 H, Plt Count 118 L, MPV 11.3, Immature Gran % (Auto) 2.300 H, Neut % (Auto) 67.9, Lymph % (Auto) 19.5, Towns % (Auto) 7.5, Eos % (Auto) 2.7, Baso % (Auto) 0.1, Absolute Neuts (auto) 4.8, Absolute Lymphs (auto) 1.37, Nucleated RBC % 0, Sodium 134 L, Potassium 4.8, Chloride 92 L, Carbon Dioxide 34.0 H, Anion Gap 8, BUN 54 H, Creatinine 5.14 H, Estim Creat Clear Calc 5.88, Est GFR (MDRD) Af Amer 10 L, Est GFR (MDRD) Non-Af 9 L, BUN/Creatinine Ratio 10.5, Glucose 119 H, Calcium 9.0 Physical Exam Const alert, oriented x3 and no apparent distress; Negative for average body habitus, healthy appearing or well nourished Constitutional Narrative: Thin, elderly, female, sitting up in bed, appears comfortable, nontoxic, appears to be frail General Appearance: uncooperative Orientation / Consciousness: lethargic; Negative for confused or disoriented HEENT normocephalic, head/scalp atraumatic, hearing grossly normal bilaterally and moist oral mucous membranes HEENT Narrative: Mallampati 2, no thrush Eyes PERRL and EOMs intact bilaterally Eyes Narrative: Conjunctiva are pale bilaterally, no scleral icterus Neck Neck Narrative: Trachea midline, no thyroid enlargement Resp normal respiratory effort, no retractions, no use of accessory muscles and clear to auscultation bilaterally Auscultation: Negative for rales, rhonchi or wheezes Cardio regular rate, regular rhythm, S1 normal heart sound, S2 normal heart sound, no murmurs, no rub, no gallops and no clicks GI normal to inspection, nondistended, normoactive bowel sounds, soft to palpation and non-tender Extremity normal to inspection, full ROM and no clubbing, cyanosis or edema Extremity Narrative: Left upper extremity dialysis fistula present with positive bruit and thrill, no clubbing or cyanosis or significant edema, pedal pulses are 2+ bilaterally Neuro oriented x3, moves all extremities and no focal motor deficits Neuro Narrative: Significant generalized weakness noted but no focal deficits Speech: speech normal Psych Psych Narrative: Affect is flat and mood seems somewhat depressed with intermittently poor eye contact, patient seems to not want to interact and ignore people who try to interact with her Mood & Affect: depressed Assessment & Plan Assessment/Plan (1) Hypertensive encephalopathy: (2) Hyperkalemia: (3) Anemia: QUALIFIERS: Anemia type: unspecified type Qualified Code(s): D64.9 - Anemia, unspecified (4) Hypertensive crisis: PLAN: Plan Hypertensive crisis -Resolved -Cardene drip is off -Continue home p.o. medications -Monitor blood pressure Hyperkalemia -Resolved Hypertensive encephalopathy -Resolved Abdominal pain/nausea/vomiting -Diet has been advanced and is tolerating well -Patient states he gets this intermittently when she is on dialysis Weakness/personality changes -Have been fluctuating depending on whether or not the patient is on steroids or not -Organic workup has been negative thus far except for positive paraneoplastic workup -CaChain Bind P/Q Lambrt +-->? LEMS -0.1 was value on this lab -Now that we have more information will reconsult neurology -I have asked that the daughter who is a vendor manager please be involved in this conversation to help with decision-making -If they recommend steroids here we will start as recommended -Solu-Medrol 100 mg x 1 dose IV now -If needs plasmapheresis or other immune suppression type medications may need transferred depending on recommendations -Await further neurology input from [facility] teleneurology Acute on chronic anemia -Hemoglobin 6.1 yesterday this morning -Patient has been on relatively high doses of steroids over the last few weeks intermittently so a concern about peptic ulcer disease is being a potential etiology -Transfused 2 units packed red blood cells and hemoglobin now up to 8.2 -Iron studies are not consistent with iron deficiency -Guaiac ordered and currently pending -Repeat CBC in a.m. -GI consulted and EGD recommended however patient refusing currently--> will see if we can get patient to agree to have it done on Friday morning History of metastatic renal cell carcinoma -History of right nephrectomy with local recurrence in bladder x 2 -Patient has been undergoing outpatient treatment with BCG -Continue outpatient follow-up Severe malnutrition -Liberalize diet as able -Supplements added -Dietitian is following Hypothyroidism -Continue home Synthroid -TSH stable Hyperlipidemia -Continue home statin Chronic bilateral lower extremity edema -No significant edema noted at this time -Continue to monitor GERD -Continue PPI Glaucoma -Continue home therapy Rheumatoid arthritis -Continue home medication as able -Patient refusing DVT prophylaxis -Continue subcu Lovenox 30 mg daily CODE STATUS -Full code -Extensive discussion with daughter from [place] as noted above and in subjective portion of the note Charges/Coding Visit Charges Inpatient E&M: 39568 Subs Hosp L3
[2023-09-06] MEDS: MethylPREDNISolone 125 MG/2 ML Vial 100 MG IV (12:43)
--- NOTE | 2023-09-06 14:09 | CT_ITS ---
EXAM: CT CHEST WITH INTRAVENOUS CONTRAST CLINICAL INDICATION: lung cancer TECHNIQUE: Helically acquired images were obtained of the chest with intravenous contrast. This CT exam was performed using one or more of the following dose reduction techniques: automated exposure control, adjustment of the mA and/or kV according to patient size, and/or use of iterative reconstruction technique. CONTRAST: IV 60mL [id number] COMPARISON: No relevant prior studies available. FINDINGS: LUNGS AND PLEURAL SPACES: Unremarkable. No mass. No consolidation or edema. No pleural effusion or thickening. No pneumothorax. HEART: There are moderate coronary artery calcifications present. Heart size is normal. No pericardial effusion. MEDIASTINUM: Unremarkable. No mediastinal or hilar adenopathy. Esophagus is unremarkable. No hiatal hernia. THYROID: Unremarkable. No thyroid lesions. BONES/JOINTS: Unremarkable. No suspicious lytic or blastic abnormality. VASCULATURE: See above. CT/Chest WITH Contrast IMPRESSION: No acute findings in the chest. Electronically Signed: All Ames MD at 17:02 EDT ,
[2023-09-06] MEDS: Ondansetron 4 MG/2 ML Vial IV (17:32)
[2023-09-06] MEDS: Lisinopril 20 MG Tablet PO (20:38)
[2023-09-06] MEDS: Latanoprost 0.005% 1 Bottle 1 DRP EACH EYE (20:39)
[2023-09-06] MEDS: hydrALAZINE 50 MG Tablet 100 MG PO (20:39)
[2023-09-07] VITALS (20 sets, daily range): BP systolic 133–210; BP diastolic 55–71; PULSE 71–101; RESP 15–24; TEMP 36.5–37.3; O2SAT 96–100; BMI 19.5
[2023-09-07] MEDS: Levothyroxine 25 MCG TABLET PO (04:39)
[2023-09-07] MEDS: hydrALAZINE 50 MG Tablet 100 MG PO ×3 (04:39→20:32)
[2023-09-07 04:45] LABS: Hematocrit 22.8 % (37-47); Hemoglobin 7.4 g/dL (12.0-15.0); Mean Corp Hgb Conc 32.5 g/dL (32-36); Mean Corpuscular Hgb 30.7 pg (27.0-32.0); Mean Corpuscular Volume 94.6 fL (81-99); Mean Platelet Vol. 11.1 fl (6.2-12.0); Platelet Count 114 K/mm3 (150-450); RBC Distribution Width CV 15.8 % (11.6-14.6); RBC Distribution Width SD 54.5 fl (35.1-43.9); Red Blood Count 2.41 M/mm3 (4.2-5.4); White Blood Count 5.7 K/mm3 (4.4-11.0)
[2023-09-07 05:04] LABS: Anion Gap 9 (5-15); BUN 35 mg/dL (7-18); BUN/Creat Ratio 8.2 RATIO (10-20); Calcium,Total 8.7 mg/dL (8.5-10.1); Chloride 99 mmol/L (98-107); Creatinine, Serum 4.27 mg/dL (0.55-1.02); EST Glomerular Filtration Rate 11 mL/min (>60); Est Glom Filt Rate - Afr Amer 13 mL/min (>60); Estimated Creatinine Clearance 7.12 ml/min; Glucose 233 mg/dL (74-106); Potassium 4.7 mmol/L (3.5-5.1); Sodium Level 133 mmol/L (136-145)
[2023-09-07] MEDS: 0.9% Saline Lock 10 ML Syringe IV (09:41)
[2023-09-07] MEDS: Lactobacillis Acidophilus 2 CAP PO ×2 (09:41→20:26)
[2023-09-07] MEDS: Carvedilol 25 MG Tablet PO ×2 (09:43→20:33)
[2023-09-07] MEDS: Lisinopril 20 MG Tablet PO ×2 (09:44→20:35)
[2023-09-07] MEDS: Furosemide 40 MG/4 ML Vial IV (09:44)
--- NOTE | 2023-09-07 12:30 | NEURO.CONS ---
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 Exam and participation in exam are notably improved today. While antibodies found on previous workup are nonspecific and may or may not be contributory here they are at least plausibly related to encephalopathy. Her improvement on steroids, witnessed by multiple clinicians, does point toward an autoimmune/paraneoplastic etiology. High dose steroids are not a good alf solution for this patient with anemia/risk of ulcer and multiple other comorbidities. 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 Diagnosis: autoimmune/paraneoplastic encephalitis Plan: Continue IVMP at current dose for now Transfer to [facility] for workup and treatment of autoimmune/paraneoplastic encephalitis - likely needs non-steroid treatment longer term. Delirium precautions: avoid or minimize sedating and anticholinergic medications, reorient as possible, encourage day/night sleep cycle, provide sensory aides including glasses and hearing aides as possible I personally attended this patient and spent a total time of 35 minutes evaluating this patient including clinical assessment, review of chart, medical history imaging, and determining appropriate treatment and workup. 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 Patient does not provide additional history on my interview and is still reluctant to participate in exam but is markedly more responsive and participatory than previously. She is amenable to me discussing her case with family.Discussed case directly with both hospitalist Dr. Frances Casas and daughter Dr. Hedy Estrella. Results from hospitalization in [facility] show, by report, VGCC P/Q type Ab as well as GAD65. Clear history of improvement in aboulia and encephalopathy on high dose steroids previously. Seemed to relapse at 30 or less of daily prednisone. Treatment at [facility] with steroids caused [id number] improvement last 24 hours. [facility] Medical History Anemia Arthritis Bilateral lower extremity edema Cancer Cardiomyopathy CKD (chronic kidney disease) stage 5, GFR less than 15 ml/min ESRD on dialysis Gastric reflux Glaucoma Heart failure Heart murmur Hx of fracture of wrist Hyperlipidemia Hypertension Hypothyroidism Kidney failure Lumbar spinal stenosis Macular degeneration Mitral regurgitation Osteoporosis Rheumatoid arthritis Shortness of breath on exertion Sjogren syndrome with inflammatory arthritis Thyroid disease Type 2 diabetes mellitus Vertigo Home Medications ascorbic acid (vitamin C) 1,000 mg tablet,extended release (Vitamin C ER) 1,000 mg PO DAILY supplement 06/13/22 [History Last Taken Unknown] bimatoprost 0.01 % eye drops (Lumigan) 1 drp EACH EYE QHS eye drop 06/13/22 [History Last Taken Unknown] carvedilol 12.5 mg tablet 12.5 mg PO BID BLOOD PRESSURE 06/13/22 [History Last Taken 08/22/22 06:00] famotidine 40 mg tablet 40 mg PO DAILY stomach 06/13/22 [History Last Taken Unknown] folic acid 1 mg tablet 1 mg PO DAILY supplement 06/13/22 [History Last Taken Unknown] levothyroxine 25 mcg tablet 25 mcg PO DAILY thryoid 06/13/22 [History Last Taken 10/10/22] multivitamin 1 tab PO DAILY supplement 06/13/22 [History Last Taken Unknown] doxazosin 2 mg tablet (Cardura) 2 mg PO BID 3 months #180 tabs 08/15/22 [Rx Last Taken 08/22/22 06:00] furosemide 40 mg tablet (Lasix) 60 mg PO BID water pill 08/15/22 [History Last Taken Unknown] icosapent ethyl 1 gram capsule (Vascepa) 2 g (2 x 1 gram) PO BID #180 caps 08/15/22 [Rx Last Taken Unknown] acetaminophen 325 mg capsule (Tylenol) 650 mg PO Q4H pain or fever 10/03/22 [History Last Taken Unknown] lidocaine 5 % topical patch 1 patch topical Q24H pain patch 01/30/23 [History Last Taken Unknown] gabapentin 100 mg capsule 200 mg (2 x 100 mg) PO DAILY PRN Neuropathy 3 months #90 caps 06/27/23 [Rx Last Taken Unknown] pantoprazole 40 mg tablet,delayed release 40 mg PO PRN Indigestion 06/30/23 [History Last Taken Unknown] nifedipine 60 mg tablet,extended release 60 mg PO BID BLOOD PRESSURE 07/16/23 [History Last Taken Unknown] amlodipine 10 mg tablet 10 mg PO DAILY blood pressure 07/22/23 [History Last Taken Unknown] acetaminophen 650 mg rectal suppository 650 mg IL Q4H PRN fever or pain 09/04/23 [History Last Taken Unknown] aluminum-magnesium hydroxide 225 mg-200 mg/5 mL oral suspension 30 ml PO Q4H 09/04/23 [History Last Taken Unknown] bisacodyl 10 mg rectal suppository 10 mg IL DAILY PRN constipation 09/04/23 [History Last Taken Unknown] cefdinir 300 mg capsule 300 mg PO BID 09/04/23 [History Last Taken Unknown] guaifenesin 100 mg/5 mL oral liquid 200 mg PO Q4H PRN cough 09/06/23 [History Last Taken Unknown] hydralazine 100 mg tablet 100 mg PO TID hypertension 09/06/23 [History Last Taken Unknown] latanoprost 0.005 % eye drops 1 drp EACH EYE QPM glaucoma 09/06/23 [History Last Taken Unknown] lisinopril 20 mg tablet 20 mg PO BID hypertension 09/06/23 [History Last Taken Unknown] lorazepam 0.5 mg tablet 0.5 mg PO DAILY PRN anxiety on dialysis day 09/06/23 [History Last Taken Unknown] melatonin 3 mg capsule 3 mg PO QHS sleep 09/06/23 [History Last Taken Unknown] polyethylene glycol 3350 17 gram oral powder packet 17 g PO DAILY PRN constipation 09/06/23 [History Last Taken Unknown] prednisone 10 mg tablet 10 mg PO DAILY RA 09/06/23 [History Last Taken Unknown] Allergy/AdvReac Type Severity Reaction Status Date / Time beef derived (bovine) Allergy Unknown PT UNABLE Verified 09/04/23 18:47 TO RESPOND-NEEDS F/U Pork/Porcine Containing Allergy Unknown PT UNABLE Verified 09/04/23 18:47 Products TO RESPOND-NEEDS F/U adalimumab [From Humira] Allergy Hives Verified 09/04/23 18:47 Family History Mother Heart disease Hypertension Osteoporosis Father CVA (cerebral vascular accident) Hypertension Surgical History H/O transurethral resection of bladder tumor (TURBT) History of bladder surgery History of nephrectomy Hx of colonoscopy S/P partial hysterectomy S/P total knee arthroplasty S/P vein stripping Social History household members: family Smoking Status: Never smoker alcohol intake: never substance use type: does not use Vital Signs Vital Signs Vital Signs: 09/06/23 13:00 09/06/23 13:43 09/06/23 14:00 Temperature Temperature Source Pulse Rate 77 81 77 Pulse Strength Respiratory Rate 20 H 21 H Respiratory Effort Respiratory Depth Respiratory Pattern Blood Pressure 129/51 H 129/51 H 141/58 H Blood Pressure Mean 77 85 Blood Pressure Source Blood Pressure Position Semi-Fowlers Semi-Fowlers Blood Pressure Location Left Arm Left Arm Pulse Ox 99 99 Oxygen Delivery Method Room Air Room Air 09/06/23 15:00 09/06/23 16:00 09/06/23 16:00 Temperature 98.6 F Temperature Source Temporal Pulse Rate 81 88 Pulse Strength Respiratory Rate 22 H 23 H Respiratory Effort Normal Non-Labored Respiratory Depth Normal Respiratory Pattern Normal Blood Pressure 113/46 L 155/54 H Blood Pressure Mean 68 87 Blood Pressure Source Monitor Blood Pressure Position Semi-Fowlers Semi-Fowlers Blood Pressure Location Left Arm Right Arm Pulse Ox 98 97 Oxygen Delivery Method Room Air Room Air Room Air 09/06/23 17:00 09/06/23 18:00 09/06/23 19:00 Temperature 100 F H Temperature Source Temporal Pulse Rate 88 89 100 Pulse Strength Respiratory Rate 23 H 23 H 17 Respiratory Effort Respiratory Depth Respiratory Pattern Blood Pressure 142/57 H 140/51 H 121/71 H Blood Pressure Mean 85 80 87 Blood Pressure Source Monitor Monitor Monitor Blood Pressure Position Semi-Fowlers Semi-Fowlers Semi-Fowlers Blood Pressure Location Right Arm Right Arm Right Arm Pulse Ox 99 98 100 Oxygen Delivery Method Room Air Room Air Room Air 09/06/23 20:00 09/06/23 20:00 09/06/23 20:30 Temperature 98.8 F Temperature Source Temporal Pulse Rate 101 H Pulse Strength Weak (1+) Respiratory Rate 25 H Respiratory Effort Normal Non-Labored Respiratory Depth Normal Respiratory Pattern Normal Blood Pressure 149/57 H Blood Pressure Mean 87 Blood Pressure Source Monitor Blood Pressure Position Semi-Fowlers Blood Pressure Location Right Arm Pulse Ox 99 Oxygen Delivery Method Room Air Room Air 09/06/23 20:39 09/06/23 21:00 09/06/23 22:00 Temperature Temperature Source Pulse Rate 100 83 85 Pulse Strength Respiratory Rate 22 H 23 H Respiratory Effort Respiratory Depth Respiratory Pattern Blood Pressure 150/58 H 126/50 H Blood Pressure Mean 88 75 Blood Pressure Source Monitor Monitor Blood Pressure Position Semi-Fowlers Semi-Fowlers Blood Pressure Location Right Arm Right Arm Pulse Ox 98 98 Oxygen Delivery Method Room Air Room Air 09/06/23 23:00 09/07/23 00:00 09/07/23 01:00 Temperature 98.1 F Temperature Source Temporal Pulse Rate 83 86 83 Pulse Strength Respiratory Rate 24 H 24 H 24 H Respiratory Effort Respiratory Depth Respiratory Pattern Blood Pressure 142/56 H 133/55 H 160/58 H Blood Pressure Mean 84 81 92 Blood Pressure Source Monitor Monitor Monitor Blood Pressure Position Semi-Fowlers Semi-Fowlers Semi-Fowlers Blood Pressure Location Right Arm Right Arm Right Arm Pulse Ox 99 99 97 Oxygen Delivery Method Room Air Room Air Room Air 09/07/23 02:00 09/07/23 00:00 09/07/23 03:00 Temperature Temperature Source Pulse Rate 82 83 Pulse Strength Respiratory Rate 22 H 23 H Respiratory Effort Normal Non-Labored Respiratory Depth Normal Respiratory Pattern Normal Blood Pressure 165/64 H 187/70 H Blood Pressure Mean 97 109 Blood Pressure Source Monitor Monitor Blood Pressure Position Semi-Fowlers Semi-Fowlers Blood Pressure Location Right Arm Right Arm Pulse Ox 99 98 Oxygen Delivery Method Room Air Room Air Room Air 09/07/23 04:00 09/07/23 04:39 09/07/23 04:00 Temperature 97.7 F L Temperature Source Temporal Pulse Rate 84 82 Pulse Strength Respiratory Rate 15 Respiratory Effort Normal Non-Labored Respiratory Depth Normal Respiratory Pattern Normal Blood Pressure 177/64 H Blood Pressure Mean 101 Blood Pressure Source Monitor Blood Pressure Position Semi-Fowlers Blood Pressure Location Right Arm Pulse Ox 100 Oxygen Delivery Method Room Air Room Air 09/07/23 05:00 09/07/23 06:00 09/07/23 07:00 Temperature Temperature Source Pulse Rate 71 73 84 Pulse Strength Respiratory Rate 17 19 H 22 H Respiratory Effort Respiratory Depth Respiratory Pattern Blood Pressure 179/61 H 177/59 H 180/61 H Blood Pressure Mean 100 98 100 Blood Pressure Source Monitor Monitor Monitor Blood Pressure Position Semi-Fowlers Semi-Fowlers Semi-Fowlers Blood Pressure Location Right Arm Right Arm Right Arm Pulse Ox 99 100 99 Oxygen Delivery Method Room Air Room Air Room Air 09/07/23 09:00 Temperature Temperature Source Pulse Rate Pulse Strength Respiratory Rate Respiratory Effort Respiratory Depth Respiratory Pattern Blood Pressure Blood Pressure Mean Blood Pressure Source Blood Pressure Position Blood Pressure Location Pulse Ox Oxygen Delivery Method Room Air Weight Weight: 45.2 kg Body Mass Index (BMI) 19.5 EEG Results Procedure Details EEG Procedure Details: MONA ESTRELLA is a 82 year old F with a past medical history of , who presents for evaluation of Electroencephalogram on DATE at TIME Physical Exam Neuro Neuro Narrative: Markedly more responsive and participatory than 48 hours ago (09/04) AOx3 Cannot name president Can name days of week forward, declines to do so backward 2/3 words recalled at 1 minute. One remembered paraphasically with categories (sanjay for [employer]) Naming intact Repetition intact Declines to read written sentences EOMI, no facial droop, sensation intact bilaterally in V1/2/3, head rotation intact. Moving all extremities antigravity though full strength unclear due to effort limitation. Sensation to light touch intact in all distal extremities Medical Records Data Medical Nutrition Assessment Dietitian: Malnutrition Criteria Met Start: 09/05/23 11:41 Freq: Status: Active Protocol: Document 09/05/23 11:41 SLA (Rec: 09/05/23 11:43 SLA Desktop) Nutrition Malnutrition Evidence of Malnutrition Exists Yes Malnutrition (moderate): Chronic Evidenced By Weight Loss (Severe),Physical Changes (Mild) Intake Problem Inadequate Oral Intake Etiology related to acute illness Signs/Symptoms as evidenced by NPO status Status Active Problem Clinical Problem Altered Nutrient-Related Laboratory Values Etiology related to hx ESRD w/ HD tx Signs/Symptoms as evidenced by BUN 47, Cr 4. 08 Status Active Problem Recommendation Dietitian Recommendations/Changes When medically able, rec HERMELINDA to Renal general - Consistent CHO diet with 4 oz nephro carb steady tid on meal trays for increased nutrition if consumed. Lab / Micro Data 09/07/23 10:20 09/07/23 04:32 Labs: Laboratory Results - last 24 hr 09/07/23 04:32: WBC 5.7, RBC 2.41 L, Hgb 7.4 L, Hct 22.8 L, MCV 94.6, MCH 30.7, MCHC 32.5, RDW Std Deviation 54.5 H, RDW Coeff of Wiliam 15.8 H, Plt Count 114 L, MPV 11.1, Sodium 133 L, Potassium 4.7, Chloride 99, Carbon Dioxide 25.0, Anion Gap 9, BUN 35 H, Creatinine 4.27 H, Estim Creat Clear Calc 7.12, Est GFR (MDRD) Af Amer 13 L, Est GFR (MDRD) Non-Af 11 L, BUN/Creatinine Ratio 8.2 L, Glucose 233 H, Calcium 8.7 09/07/23 10:20: Hgb 8.0 L Imaging Radiology Impression Chest CT 09/06/23 14:09 IMPRESSION: No acute findings in the chest. Electronically Signed: All Ames MD at 17:02 EDT , Active Medications Active Medications Active Medications: Current Medications Generic Name Dose Route Start Last Admin Trade Name Freq PRN Reason Stop Dose Admin Acetaminophen 650 mg 09/04/23 22:50 Acetaminophen 325 Mg Tablet PO Q6H PRN PRN Pain 1-10 or Fever Acetaminophen 650 mg 09/04/23 22:50 Acetaminophen 650 Mg Suppository RC Q6H PRN PRN fever or pain Bisacodyl 10 mg 09/04/23 22:50 Bisacodyl 10 Mg Suppository RC DAILY PRN constipation Carvedilol 25 mg 09/07/23 10:00 09/07/23 09:43 Carvedilol 25 Mg Tablet PO 25 mg BID HOWARD Administration Protocol Clonidine 0.1 mg 09/07/23 06:50 Clonidine Hcl 0.1 Mg Tablet PO Q6H PRN SBP>160 Protocol Furosemide 40 mg 09/05/23 10:00 09/07/23 09:44 Furosemide 40 Mg/4 Ml Vial IV 40 mg DAILY [facility] Administration Protocol Guaifenesin 10 ml 09/07/23 06:51 Guaifenesin 10 Ml Udc (200mg/10ml) PO Q4H PRN cough Hydralazine HCl 100 mg 09/06/23 22:00 09/07/23 04:39 Hydralazine 50 Mg Tablet PO 100 mg TID [facility] Administration Protocol Nicardipine HCl 25 mg/ Sodium 250 mls @ 50 mls/hr 09/04/23 23:30 09/07/23 06:41 Chloride CONT INF Not Given .Q5H HOWARD Protocol 5 MG/HR Pantoprazole Sodium 40 mg/ 110 mls @ 330 mls/hr 09/06/23 22:00 09/06/23 21:54 Sodium Chloride IV Infused Q12 [facility] Infusion Latanoprost 1 drp 09/04/23 22:00 09/06/23 20:39 Latanoprost 0.005% 1 Bottle EACH EYE 1 drp QHS [facility] Administration Levothyroxine Sodium 25 mcg 09/05/23 06:00 09/07/23 04:39 Levothyroxine 25 Mcg Tablet PO 25 mcg DAILY@0600 [facility] Administration Lidocaine 1 patch 09/05/23 10:00 09/06/23 09:18 Lidocaine 5% Patch TOPICAL Not Given DAILY [facility] Protocol Lisinopril 20 mg 09/06/23 22:00 09/07/23 09:44 Lisinopril 20 Mg Tablet PO 20 mg BID [facility] Administration Protocol Lorazepam 0.5 mg 09/07/23 06:51 Lorazepam 0.5 Mg Tablet PO DAILY PRN anxiety on dialysis day Magnesium Hydroxide 30 ml 09/05/23 10:00 Magnesium Hydroxide 30 Ml Udc PO Q4H PRN DYSPEPSIA Methylprednisolone 40 mg 09/07/23 10:00 Methylprednisolone 40 Mg/Ml Vial IV Q12 [facility] Multivitamins 1 tablet 09/05/23 10:00 09/06/23 09:18 Multivitamins,Therapeutic Tablet PO Not Given DAILY [facility] Nitroglycerin 0.4 mg 09/04/23 22:50 Nitroglycerin (Inpatient Use) 0.4 Mg Tab.Subl SL Q5M PRN CARDIAC/CHEST PAIN Ondansetron HCl 4 mg 09/04/23 22:50 09/06/23 17:32 Ondansetron 4 Mg/2 Ml Vial IV 4 mg Q8H PRN PRN Administration NAUSEA/VOMITING Sodium Chloride 10 - 40 ml 09/04/23 22:49 09/07/23 09:41 0.9% Saline Lock 10 Ml Syringe IV 20 ml UD PRN Administration SALINE FLUSH
[2023-09-07] MEDS: Insulin Glargine-YFGN 100 UNIT/ML Pen 12 UNIT SC (14:14)
[2023-09-07] MEDS: Multivitamins,Therapeutic Tablet 1 TABLET PO (14:14)
[2023-09-07] MEDS: Pantoprazole Sodium 40 MG in 0.9% Normal Saline (100mL MB+) 100 ML 330 MG IV ×2 (14:28→20:43)
--- NOTE | 2023-09-07 15:35 | PCM.DC.SUM ---
Providers Date of Admission: 09/04/23 Date of Discharge: 09/07/23 Primary Care Physician: Dr. Jacky Morgan MD Consultations 09/04/23 22:50 Consult: Nephrology Routine Consulting Provider: Shu Ballesteros Reason for Consult: End-stage renal disease on hemodialysis EMERGENT Consult: No MD Notified: Yes Date Notified: 09/04/23 Time Notified: 06:41 Method of Notification: Answering Service 09/05/23 09:04 SOC [Consult: Tele-Neurology] Routine Consulting Provider: [facility] Reason for Consult: encephalopathy EMERGENT Consult: No MD Notified: Yes Date Notified: 09/05/23 Time Notified: 09:18 Method of Notification: ED Physician Initiated Nursing Unit Staff Notify [facility] of Tele-Neurology Consult: Yes 09/05/23 09:09 Consult: Gastroenterology Routine Consulting Provider: [facility] Reason for Consult: anemia EMERGENT Consult: No MD Notified: Yes Date Notified: 09/05/23 Time Notified: 09:09 Method of Notification: Text 09/06/23 10:52 Consult: Tele-Neurology Routine Consulting Provider: [facility] Reason for Consult: abnormal neurologic labs EMERGENT Consult: No MD Notified: Yes Date Notified: 09/06/23 Time Notified: 10:53 Method of Notification: Verbal Nursing Unit Staff Notify [facility] of Tele-Neurology Consult: Yes Reason For Visit: HYPERTENSIVE CRISIS, HYPERKALEMIA ABD HYPERTENSIVE Diagnosis Discharge Diagnosis (1) Hypertensive encephalopathy: Status: Acute Code(s): I67.4 - Hypertensive encephalopathy (2) Hyperkalemia: Status: Acute Code(s): E87.5 - Hyperkalemia (3) Anemia: Status: Acute Code(s): D64.9 - Anemia, unspecified Qualifiers: Anemia type: unspecified type Qualified Code(s): D64.9 - Anemia, unspecified (4) Hypertensive crisis: Status: Acute Code(s): I16.9 - Hypertensive crisis, unspecified Medications at Discharge Home Medications ascorbic acid (vitamin C) 1,000 mg tablet,extended release (Vitamin C ER) 1,000 mg PO DAILY supplement 06/13/22 bimatoprost 0.01 % eye drops (Lumigan) 1 drp EACH EYE QHS eye drop 06/13/22 carvedilol 12.5 mg tablet 12.5 mg PO BID BLOOD PRESSURE 06/13/22 famotidine 40 mg tablet 40 mg PO DAILY stomach 06/13/22 folic acid 1 mg tablet 1 mg PO DAILY supplement 06/13/22 levothyroxine 25 mcg tablet 25 mcg PO DAILY thryoid 06/13/22 multivitamin 1 tab PO DAILY supplement 06/13/22 doxazosin 2 mg tablet (Cardura) 2 mg PO BID 3 months #180 tabs 08/15/22 furosemide 40 mg tablet (Lasix) 60 mg PO BID water pill 08/15/22 icosapent ethyl 1 gram capsule (Vascepa) 2 g (2 x 1 gram) PO BID #180 caps 08/15/22 acetaminophen 325 mg capsule (Tylenol) 650 mg PO Q4H pain or fever 10/03/22 lidocaine 5 % topical patch 1 patch topical Q24H pain patch 01/30/23 gabapentin 100 mg capsule 200 mg (2 x 100 mg) PO DAILY PRN Neuropathy 3 months #90 caps 06/27/23 pantoprazole 40 mg tablet,delayed release 40 mg PO PRN Indigestion 06/30/23 nifedipine 60 mg tablet,extended release 60 mg PO BID BLOOD PRESSURE 07/16/23 amlodipine 10 mg tablet 10 mg PO DAILY blood pressure 07/22/23 acetaminophen 650 mg rectal suppository 650 mg ME Q4H PRN fever or pain 09/04/23 aluminum-magnesium hydroxide 225 mg-200 mg/5 mL oral suspension 30 ml PO Q4H 09/04/23 bisacodyl 10 mg rectal suppository 10 mg ME DAILY PRN constipation 09/04/23 cefdinir 300 mg capsule 300 mg PO BID 09/04/23 guaifenesin 100 mg/5 mL oral liquid 200 mg PO Q4H PRN cough 09/06/23 hydralazine 100 mg tablet 100 mg PO TID hypertension 09/06/23 latanoprost 0.005 % eye drops 1 drp EACH EYE QPM glaucoma 09/06/23 lisinopril 20 mg tablet 20 mg PO BID hypertension 09/06/23 lorazepam 0.5 mg tablet 0.5 mg PO DAILY PRN anxiety on dialysis day 09/06/23 melatonin 3 mg capsule 3 mg PO QHS sleep 09/06/23 polyethylene glycol 3350 17 gram oral powder packet 17 g PO DAILY PRN constipation 09/06/23 prednisone 10 mg tablet 10 mg PO DAILY RA 09/06/23 Hospital Course Operations None Procedures Blood transfusion and - (CT abdomen pelvis/chest x-ray/CT chest) Summary of Care Provided Minutes Spent on Discharge: 45 Hospital Course: Patient is an 82-year-old [place] female who presented to the emergency department from local [facility] with refusal to take medications, refusing dialysis, and abdominal pain/nausea. About 2 months ago she was independent in her IADLs and ADLs at which time she started having some gross and fine motor control issues and decreased functional status. She eventually started having some personality changes. She states her mother typically was very appropriate and interactive with people. She became more withdrawn and started refusing a lot of care which is very atypical for her. Her daughter states she had multiple conversations with her at the time of recurrence diagnosis of her bladder cancer about pursuing hospice and the patient indicated she wanted proceed with aggressive care. She has been receiving BCG infusions. Due to her altered mental status she has been hospitalized a few times since that point in time with the initial admission being here where she had extensive workup including an MRI and an LP and evaluation by neurology. She then came back to the emergency department at which time she was transferred to [facility] in [place] where extensive workup was pursued. During that hospitalization she was placed on high-dose steroids initially with 100 mg and further workup was pursued with a lot of lab for paraneoplastic syndromes including Ca Chain Bind P/Q Lambrt and GAD65 both of which were noted to be elevated. The Ca Chain Bind P/Q Lambrt results have come back since she was discharged from the hospital. Her daughter stated that during the hospitalization with the high-dose steroids her personality seemed to return back to baseline but quickly deteriorated as they wean the steroids. While she was back at the longterm receiving rehab they increased her steroids back to 60 mg at which time her daughter noted an improvement in her functional status as well as her personality. The steroids were tapered over a week and once they got to 30 mg on the steroids her personality again changed and she started refusing medications, dialysis, and other therapies so she was brought back to the hospital at this time. At this time we do have the results of the above noted abnormal paraneoplastic workup and the daughter is concerned that maybe this is contributing to her personality changes and functional decline. I did give her 100 mg of IV Solu-Medrol x 1 dose and she improved dramatically within 24 hours becoming more interactive and animated and having improved functional strength. She was placed on 40 mg of IV Solu-Medrol twice daily. I did obtain a CT of her chest to rule out pulmonary malignancy and it was negative for any acute processes. Neurology was initially consulted before we had information about the antibodies and then reconsulted. Dr. Chalino Kim at [facility] evaluated the patient and after extensive discussion with him and reviewing the laboratory data he felt she was appropriate for transfer for consideration of plasmapheresis/IVIG/immunosuppression therapy. We do not have access to plasmapheresis or IVIG here so he felt transfer was more than appropriate. We did call [facility] and she has been accepted. Also during her hospitalization she was markedly hypertensive and refusing medications secondary to the above. She was initially placed in the ICU and put on a Cardene drip. When she allowed for dialysis and started taking oral medications we were able to discontinue the Cardene drip. She was on fairly high doses of her medication so use as needed clonidine for elevated blood pressure as needed following. She is chronically dialysis dependent with a history of nephrectomy and recurrence in her bladder x 2 and currently undergoing BCG infusion. It sounds like they did a skin tuberculin test at the longterm and will concern for tuberculosis. Her chest x-ray was negative and we ordered a QuantiFERON which was pending at discharge. I did discuss with the family that skin tuberculin test should have never been done on somebody undergoing BCG infection as it would most certainly be positive given the BCG infusions. She was also found to be anemic on admission with a hemoglobin of 6.1. She finally did agree to transfusion of 2 units packed red blood cells which improved her hemoglobin to 8.2. GI was consulted and recommended EGD however with the patient's initial confusion she refused EGD. After she was given the Solu-Medrol and her personality changed she was amenable to undergoing an EGD and I did discuss this with Dr. Mike. Plan will be for EGD on Friday,09/08/2023 if she did not get a bed at [facility] in that timeframe if she does she will need to have EGD done there. Patient was able to be discharged to [facility] for ongoing care on. 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 Hypothyroidism Hyperlipidemia Chronic bilateral lower extremity edema GERD Glaucoma Rheumatoid arthritis Physical Exam Const alert, oriented x3 and no apparent distress; Negative for average body habitus, healthy appearing or well nourished Constitutional Narrative: Thin, elderly, [place] female, sitting up in bed, appears comfortable, nontoxic, appears to be frail, much more interactive today, feeding herself breakfast General Appearance: cooperative, comfortable, well kempt, well developed and uncooperative Orientation / Consciousness: awake, oriented to person, oriented to place and oriented to time Exam Limitations: no limitations Nutritional Appearance: thin HEENT normocephalic, head/scalp atraumatic, hearing grossly normal bilaterally and moist oral mucous membranes HEENT Narrative: Mallampati 2, no thrush Eyes PERRL and EOMs intact bilaterally Eyes Narrative: Conjunctiva are pale bilaterally, no scleral icterus Neck no lymphadenopathy and supple Neck Narrative: Trachea midline, no thyroid enlargement Resp normal respiratory effort, no retractions, no use of accessory muscles and clear to auscultation bilaterally Auscultation: Negative for rales, rhonchi or wheezes Cardio regular rate, regular rhythm, S1 normal heart sound, S2 normal heart sound, no murmurs, no rub, no gallops and no clicks GI normal to inspection, nondistended, normoactive bowel sounds, soft to palpation and non-tender Extremity no clubbing, cyanosis or edema Extremity Narrative: Left upper extremity dialysis fistula present with positive bruit and thrill, no clubbing or cyanosis or significant edema, pedal pulses are 2+ bilaterally, decreased lean muscle mass Skin no rashes or lesions noted, no wounds, skin turgor normal and no jaundice Neuro oriented x3, CN's II-XII intact bilaterally, moves all extremities and no focal motor deficits Neuro Narrative: Significant generalized weakness noted but no focal deficits Speech: speech normal Psych affect normal Psych Narrative: Much more interactive today, significant improvement since yesterday, eye contact is good, patient communicates her needs without any hesitance or delay and is accurate with answering all questions and time for responses Mood & Affect: depressed Medical Records Data Medical Nutrition Assessment Dietitian: Malnutrition Criteria Met Start: 09/05/23 11:41 Freq: Status: Active Protocol: Document 09/05/23 11:41 SLA (Rec: 09/05/23 11:43 SLA Desktop) Nutrition Malnutrition Evidence of Malnutrition Exists Yes Malnutrition (moderate): Chronic Evidenced By Weight Loss (Severe),Physical Changes (Mild) Intake Problem Inadequate Oral Intake Etiology related to acute illness Signs/Symptoms as evidenced by NPO status Status Active Problem Clinical Problem Altered Nutrient-Related Laboratory Values Etiology related to hx ESRD w/ HD tx Signs/Symptoms as evidenced by BUN 47, Cr 4. 08 Status Active Problem Recommendation Dietitian Recommendations/Changes When medically able, rec HERMELINDA to Renal general - Consistent CHO diet with 4 oz nephro carb steady tid on meal trays for increased nutrition if consumed. Weight / BMI Weight Weight: 45.2 kg Body Mass Index (BMI) 19.5 ABG / Lab / Microbiology Data 09/07/23 10:20 09/07/23 04:32 Laboratory: Laboratory Results - last 24 hr 09/07/23 04:32: WBC 5.7, RBC 2.41 L, Hgb 7.4 L, Hct 22.8 L, MCV 94.6, MCH 30.7, MCHC 32.5, RDW Std Deviation 54.5 H, RDW Coeff of Wiliam 15.8 H, Plt Count 114 L, MPV 11.1, Sodium 133 L, Potassium 4.7, Chloride 99, Carbon Dioxide 25.0, Anion Gap 9, BUN 35 H, Creatinine 4.27 H, Estim Creat Clear Calc 7.12, Est GFR (MDRD) Af Amer 13 L, Est GFR (MDRD) Non-Af 11 L, BUN/Creatinine Ratio 8.2 L, Glucose 233 H, Calcium 8.7 09/07/23 10:20: Hgb 8.0 L Radiography Diagnostic Testing: Radiology Impression Chest CT 09/06/23 14:09 IMPRESSION: No acute findings in the chest. Electronically Signed: All Ames MD at 17:02 EDT , Meaningful Use Info Ischemic Stroke Statin Dosing Therapy Reference: STATIN DOSE THERAPY REFERENCE: * Patients > 75 years receive moderate or high dose statin therapy. * Patients 75 years or YOUNGER should receive HIGH intensity statin dose unless contraindicated. You will be required to document reason for non-treatment if statin daily dose does not meet guidelines. HIGH DOSE STATIN THERAPY DAILY Atorvastatin > than or = to 40 mg Rosuvastatin > than or = to 20 mg Amlodipine + Atorvastatin > than or = to 2.5/40 mg Ezetimibe + Simvastatin 10/80 mg Simvastatin 80mg Discharge Plan Admission Admit Date/Time: 09/04/23 22:09 Primary Reason for Your Visit: Confusion/abdominal pain Attending Provider: Kelli Casas Primary Care Provider: Jacky Morgan Consulting Providers: Shu Ballesteros; Philippe Grant; Lamin Smith; Francesca Kuhn; Priti Harden; Sherita Freitas; Staci Duron; Kimani Milligan; Emma Orellana; Thompson Belle; Chito Gallegos; Melly Sandoval; Surya Borrero; Alsehia Martinez; Linda Celestin; Lauren Post; Chalino Kim; Zion Byers; Todd Dougherty; Ariane Casas; Maria Elena Regan Discharge Orders/Prescriptions Prescriptions: No Action icosapent ethyl [Vascepa] 1 gram capsule 2 g PO BID Qty: 180 3RF doxazosin [Cardura] 2 mg tablet 2 mg PO BID 90 Days Qty: 180 3RF lidocaine 5 % adhesive patch,medicated 1 patch topical Q24H Patient Comments: apply 1 patch to affected area daily multivitamin Tablet 1 tab PO DAILY carvedilol 12.5 mg Tablet 12.5 mg PO BID Rx Instructions: must administer with a meal/food famotidine 40 mg Tablet 40 mg PO DAILY Hold Instructions: Order Changed Vitamin C 1,000 mg Tablet Extended Release 1,000 mg PO DAILY Hold Instructions: not on ECF sheet levothyroxine 25 mcg Tablet 25 mcg PO DAILY folic acid 1 mg Tablet 1 mg PO DAILY Hold Instructions: not on ecf sheet Lumigan 0.01 % Drops 1 drp EACH EYE QHS pantoprazole 40 mg tablet,delayed release (DR/EC) 40 mg PO PRN furosemide [Lasix] 40 mg tablet 60 mg PO BID acetaminophen [Tylenol] 325 mg Capsule 650 mg PO Q4H nifedipine 60 mg tablet extended release 60 mg PO BID amlodipine 10 mg tablet 10 mg PO DAILY Hold Instructions: Order Changed acetaminophen 650 mg suppository 650 mg ME Q4H PRN (Reason: fever or pain) aluminum-magnesium hydroxide 225-200 mg/5 mL suspension 30 ml PO Q4H bisacodyl 10 mg suppository 10 mg ME DAILY PRN (Reason: constipation) cefdinir 300 mg capsule 300 mg PO BID lisinopril 20 mg tablet 20 mg PO BID hydralazine 100 mg tablet 100 mg PO TID guaifenesin 100 mg/5 mL liquid 200 mg PO Q4H PRN (Reason: cough) lorazepam 0.5 mg tablet 0.5 mg PO DAILY PRN (Reason: anxiety on dialysis day) latanoprost 0.005 % drops 1 drp EACH EYE QPM melatonin 3 mg capsule 3 mg PO QHS polyethylene glycol 3350 17 gram powder in packet 17 g PO DAILY PRN (Reason: constipation) prednisone 10 mg tablet 10 mg PO DAILY gabapentin 100 mg capsule 200 mg PO DAILY PRN (Reason: Neuropathy) 90 Days Qty: 90 1RF Hold Instructions: Order Completed Rx Instructions: Daily Prn Referrals / Follow Up: Jacky Morgan MD [Primary Care Provider] - Disposition Disposition (needs filled in before D/C Order can be placed): Acute Care Hospital Charges/Coding Visit Charges Inpatient E&M: 52044 Disch Hosp >30min
--- NOTE | 2023-09-07 16:00 | PCM.PN.HOSP ---
Reason for Visit Reason for Visit: Altered mental status/abdominal pain/nausea/vomiting Subjective Subjective Patient is much more awake and alert and interactive today. Completely willing to talk to me and asking for a cup of coffee. Was able to feed herself breakfast. No specific complaints. Agreeable to EGD if need be tomorrow. Objective Data Objective Data Vital Signs: Vital Signs Temp Pulse Resp BP Pulse Ox O2 Del Method 98.6 F 80 21 H 202/64 H 100 Room Air 09/07/23 14:00 09/07/23 14:15 09/07/23 14:00 09/07/23 14:15 09/07/23 14:00 09/07/23 14:00 Oxygen Delivery Method Room Air Weight: 45.2 kg Body Mass Index (BMI) 19.5 Intake & Output: Intake and Output for Last 24 Hours 09/05/23 09/06/23 09/07/23 23:59 23:59 23:59 Intake Total 2167.25 / 2167.25 725.00 / 725.00 200 / 200 Output Total 420 / 420 2380 / 2380 150 / 150 Balance 1747.25 / 1747.25 -1655.00 / -1655.00 50 / 50 Medical Nutrition Assessment Dietitian: Malnutrition Criteria Met Start: 09/05/23 11:41 Freq: Status: Active Protocol: Document 09/05/23 11:41 SLA (Rec: 09/05/23 11:43 SLA Desktop) Nutrition Malnutrition Evidence of Malnutrition Exists Yes Malnutrition (moderate): Chronic Evidenced By Weight Loss (Severe),Physical Changes (Mild) Intake Problem Inadequate Oral Intake Etiology related to acute illness Signs/Symptoms as evidenced by NPO status Status Active Problem Clinical Problem Altered Nutrient-Related Laboratory Values Etiology related to hx ESRD w/ HD tx Signs/Symptoms as evidenced by BUN 47, Cr 4. 08 Status Active Problem Recommendation Dietitian Recommendations/Changes When medically able, rec HERMELINDA to Renal general - Consistent CHO diet with 4 oz nephro carb steady tid on meal trays for increased nutrition if consumed. Lab / Micro Data 09/08/23 05:10 09/08/23 05:10 Labs: Laboratory Results - last 24 hr 09/07/23 04:32: WBC 5.7, RBC 2.41 L, Hgb 7.4 L, Hct 22.8 L, MCV 94.6, MCH 30.7, MCHC 32.5, RDW Std Deviation 54.5 H, RDW Coeff of Wiliam 15.8 H, Plt Count 114 L, MPV 11.1, Sodium 133 L, Potassium 4.7, Chloride 99, Carbon Dioxide 25.0, Anion Gap 9, BUN 35 H, Creatinine 4.27 H, Estim Creat Clear Calc 7.12, Est GFR (MDRD) Af Amer 13 L, Est GFR (MDRD) Non-Af 11 L, BUN/Creatinine Ratio 8.2 L, Glucose 233 H, Calcium 8.7 09/07/23 10:20: Hgb 8.0 L Radiography Diagnostic Testing: Radiology Impression Chest CT 09/06/23 14:09 IMPRESSION: No acute findings in the chest. Electronically Signed: All Ames MD at 17:02 EDT , Physical Exam Const alert, oriented x3 and no apparent distress; Negative for average body habitus, healthy appearing or well nourished Constitutional Narrative: Thin, elderly, [place] female, sitting up in bed, appears comfortable, nontoxic, appears to be frail, much more interactive today, feeding herself breakfast General Appearance: cooperative, comfortable, well kempt, well developed and uncooperative Orientation / Consciousness: awake, oriented to person, oriented to place, oriented to time and lethargic; Negative for confused or disoriented Exam Limitations: no limitations Nutritional Appearance: thin HEENT normocephalic, head/scalp atraumatic, hearing grossly normal bilaterally and moist oral mucous membranes HEENT Narrative: Mallampati 2, no thrush Eyes PERRL and EOMs intact bilaterally Eyes Narrative: Conjunctiva are pale bilaterally, no scleral icterus Neck no lymphadenopathy and supple Neck Narrative: Trachea midline, no thyroid enlargement Resp normal respiratory effort, no retractions, no use of accessory muscles and clear to auscultation bilaterally Auscultation: Negative for rales, rhonchi or wheezes Cardio regular rate, regular rhythm, S1 normal heart sound, S2 normal heart sound, no murmurs, no rub, no gallops and no clicks GI normal to inspection, nondistended, normoactive bowel sounds, soft to palpation and non-tender Extremity normal to inspection, full ROM and no clubbing, cyanosis or edema Extremity Narrative: Left upper extremity dialysis fistula present with positive bruit and thrill, no clubbing or cyanosis or significant edema, pedal pulses are 2+ bilaterally, decreased lean muscle mass Skin no rashes or lesions noted, no wounds, skin turgor normal and no jaundice Neuro oriented x3, CN's II-XII intact bilaterally, moves all extremities and no focal motor deficits Neuro Narrative: Significant generalized weakness noted but no focal deficits Sensorium / Orientation: awake, alert, oriented to person and oriented to place Speech: speech normal Psych affect normal Psych Narrative: Much more interactive today, significant improvement since yesterday, eye contact is good, patient communicates her needs without any hesitance or delay and is accurate with answering all questions and time for responses Mood & Affect: depressed Assessment & Plan Assessment/Plan (1) Hypertensive encephalopathy: (2) Hyperkalemia: (3) Anemia: QUALIFIERS: Anemia type: unspecified type Qualified Code(s): D64.9 - Anemia, unspecified (4) Hypertensive crisis: PLAN: Plan Hypertensive crisis -Resolved -Cardene drip is off -Continue home p.o. medications -Add amlodipine 10 mg daily -As needed clonidine 0.1 every 6 hours for systolic blood pressure greater than 160 -Monitor blood pressure Weakness/personality changes -Have been fluctuating depending on whether or not the patient is on steroids or not -Organic workup has been negative thus far except for positive paraneoplastic workup -CaChain Bind P/Q Lambrt +-->? LEMS -0.1 was value on this lab -Now that we have more information will reconsult neurology -I have asked that the daughter who is a saddle stitch operator please be involved in this conversation to help with decision-making -If they recommend steroids here we will start as recommended -Solu-Medrol 100 mg x 1 dose given on 09/06/2023 with significant improvement in strength and personality -Will continue Solu-Medrol 40 twice daily for now -[facility] neurology evaluated the patient today and they agree that she needs to be considered for IVIG/plasmapheresis/chronic immunosuppression other than steroids and recommended transfer [facility] -Has been accepted and awaiting bed Abdominal pain/nausea/vomiting -Diet has been advanced and is tolerating well -Patient states he gets this intermittently when she is on dialysis -Is able to tell me more today that it is in the epigastric region -Concerned about peptic ulcer disease especially with acute anemia on presentation -Plan is for EGD tomorrow if the patient is still here as patient is now agreeable Acute on chronic anemia -Hemoglobin 6.1 yesterday this morning -Patient has been on relatively high doses of steroids over the last few weeks intermittently so a concern about peptic ulcer disease is being a potential etiology -Transfused 2 units packed red blood cells -Hemoglobin stable on repeat today at 8.0 from 8.2 yesterday -Iron studies are not consistent with iron deficiency -Guaiac ordered but remains pending -Repeat CBC in a.m. 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 -Done at the skilled nursing -Chest x-ray is negative -Patient receiving BCG -Skin testing should not have been pursued given the fact that she is getting BCG and QuantiFERON should be the screening test of choice -Quant to Farren test is currently pending History of metastatic renal cell carcinoma -History of right nephrectomy with local recurrence in bladder x 2 -Patient has been undergoing outpatient treatment with BCG -Continue outpatient follow-up Severe malnutrition -Liberalize diet as able -Supplements added -Dietitian is following Hypothyroidism -Continue home Synthroid -TSH stable Hyperlipidemia -Continue home statin Chronic bilateral lower extremity edema -No significant edema noted at this time -Continue to monitor GERD -Continue PPI Glaucoma -Continue home therapy Rheumatoid arthritis -Continue home medication as able DVT prophylaxis -Continue subcu Lovenox 30 mg daily CODE STATUS -Full code -Updated daughter in [place] today and the neurologist was going to call her and discussed transfer with her. When I talked to her earlier she was amenable to transfer to [facility] if that is what the neurologist felt necessary Accepted at [facility]...awaiting bed. Charges/Coding Visit Charges Inpatient E&M: 78368 Subs Hosp L3
[2023-09-07] MEDS: amLODIPine 10 MG Tablet PO (16:43)
[2023-09-07] MEDS: Latanoprost 0.005% 1 Bottle 1 DRP EACH EYE (20:36)
[2023-09-08] VITALS (19 sets, daily range): BP systolic 88–274; BP diastolic 53–86; PULSE 60–87; RESP 14–21; TEMP 36.2–36.9; O2SAT 96–99; BMI 20.2; BMI 19.3
[2023-09-08 05:25] LABS: Hematocrit 21.8 % (37-47); Mean Corp Hgb Conc 32.1 g/dL (32-36); Mean Corpuscular Hgb 30.2 pg (27.0-32.0); Mean Platelet Vol. 10.6 fl (6.2-12.0); Platelet Count 114 K/mm3 (150-450); RBC Distribution Width CV 15.2 % (11.6-14.6); RBC Distribution Width SD 52.7 fl (35.1-43.9); Red Blood Count 2.32 M/mm3 (4.2-5.4); White Blood Count 10.8 K/mm3 (4.4-11.0)
[2023-09-08 05:39] LABS: Anion Gap 11 (5-15); BUN 52 mg/dL (7-18); BUN/Creat Ratio 9.8 RATIO (10-20); Calcium,Total 8.9 mg/dL (8.5-10.1); Chloride 97 mmol/L (98-107); Creatinine, Serum 5.28 mg/dL (0.55-1.02); EST Glomerular Filtration Rate 8 mL/min (>60); Est Glom Filt Rate - Afr Amer 10 mL/min (>60); Glucose 242 mg/dL (74-106); Potassium 5.6 mmol/L (3.5-5.1); Sodium Level 133 mmol/L (136-145)
[2023-09-08] MEDS: Levothyroxine 25 MCG TABLET PO (06:06)
[2023-09-08] MEDS: hydrALAZINE 50 MG Tablet 100 MG PO ×3 (06:06→20:57)
[2023-09-08] MEDS: PureFlow B 2K Dialysis Soln 1 BAG 6 BAG PF (07:35)
[2023-09-08] MEDS: 0.9% Normal Saline 1,000 ML IV.SOLN. 1000 ML OPERA.SITE (07:35)
--- NOTE | 2023-09-08 09:48 | CASEMGMT ---
Discharge Planning Updates sent via [facility] to [facility]. Chiara Hopkins, Discharge Planning Asst.
[2023-09-08] MEDS: 0.9% Normal Saline (500mL Bag) 500 ML 15 ML IV (10:30)
--- NOTE | 2023-09-08 11:15 | EGD_PTH ---
PATIENT: MONA ESTRELLA LOC: ICU U#:[id number] AGE/SX: 82/F ROOM: ICU09 RE09/04/[address]: Dr. Maria Del Rosario Cooper MD : 1940 BED: 1 DIS: 09/10/2023 SPEC #: [id number] RECD: 09/08/23 13:36 STATUS: ANOOP RERachel #: [id number] ISSAC: 09/08/23 11:[address]: David Mike DEPT: SURGICAL PATHOLOGY RECD BY: Navdeep Salazar ENTERED: 09/08/23 13:53 SP TYPE: EGD BIOPSY OTHR DR: MD Dr. Francesca Mg MD Archana Hinduja, MD Dr. Allison Jordan, DO Dr. Alicia Zha, MD Dr. David de Lorenzo, DO Dr. Deepak Gulati, MD Dr. Efewongbe Oleghe, MD Dr. Hera Kamdar, MD Dr. Jan Bittar, MD Dr. James Burke, MD Dr. Jayaprakas Dasari, MD Dr. Kathryn Lee, DO Margaret Beigel, MD Dr. Matthew Gusler, MD Dr. Maryam Mian, MD Dr. Mohamed Ridha, MD Dr. Mhd Ezzat Zaghlouleh, MD Dr. Nana Yaa Koram, MD Dr. Peter Robinson, MD Dr. Rami Ibrahim, MD Dr. Sushil Lakhani, MD Dr. Vivien Lee, MD Yousef Hannawi, MD Tissues: A - Gastric mucous membrane B - Duodenum, NOS Procedures: Special Stain Group II Surgery Specimen Level IV Alcian Blue/PAS (control) HEADER OPERATION: EGD with biopsies PRE-OP DIAGNOSIS: Anemia, abdominal pain TISSUE SUBMITTED: A- Gastric ulcer biopsy, B- Duodenum bulb biopsy MICROSCOPIC DIAGNOSIS A. Gastric ulcer, biopsy: Mild gastritis. Focal intestinal metaplasia (goblet cell metaplasia). See microscopic description and comment. B. Duodenum bulb, biopsy: A fragment of duodenal mucosa with Shasta gland hyperplasia. SJ/mr 09/09/23 COMMENT A. The results of immunohistochemistry for Helicobacter pylori will be reported separately ([id number]). Alcian blue/PAS stain with matched control is also used in the evaluation of the specimen. MICROSCOPIC DESCRIPTION Slides are reviewed. The specimen shows fragments of gastric mucosa with chronic inflammatory cell infiltrates in the lamina propria consisting of lymphocytes and plasma cells, consistent with mild chronic gastritis. Focal intestinal metaplasia (goblet cell metaplasia) is also noted. GROSS DESCRIPTION A. Received in fixative is one container labeled with the patient's name and designated Gastric ulcer biopsy. The specimen consists of one irregular fragment of light montes soft tissue that measures 0.5 x 0.5 x 0.1 cm. The specimen is totally submitted in one cassette. B. Received in fixative is one container labeled with the patient's name and designated Duodenum bulb biopsy. The specimen consists of one irregular fragment of light montes soft tissue that measures 0.7 x 0.3 x 0.1 cm. The specimen is totally submitted in one cassette. Cuca 09/08/23 TC:3 CPT:46721h4,77824
--- NOTE | 2023-09-08 11:15 | IMM_PTH ---
PATIENT: MONA ESTRELLA LOC: ICU U#:[id number] AGE/SX: 82/F ROOM: ICU09 RE09/04/[address]: Dr. Maria Del Rosario Cooper MD : 1940 BED: 1 DIS: 09/10/2023 SPEC #: [id number] RECD: 09/08/23 14:03 STATUS: ANOOP REQ #: [id number] ISSAC: 09/08/23 11:[address]: David Mike DEPT: IMMUNOHISTOCHEMISTRY RECD BY: Junior Singh ENTERED: 09/08/23 14:04 SP TYPE: IMMUNO OTHR DR: MD Dr. Francesca Mg MD Archana Hinduja, MD Dr. Allison Jordan, DO Dr. Alicia Zha, MD Dr. David de Lorenzo, DO Dr. Deepak Gulati, MD Dr. Efewongbe Oleghe, MD Dr. Hera Kamdar, MD Dr. Jan Bittar, MD Dr. James Burke, MD Dr. Jayaprakas Dasari, MD Dr. Kathryn Lee, DO Margaret Beigel, MD Dr. Matthew Gusler, MD Dr. Maryam Mian, MD Dr. Mohamed Ridha, MD Dr. Mhd Ezzat Zaghlouleh, MD Dr. Nana Yaa Koram, MD Dr. Peter Robinson, MD Dr. Rami Ibrahim, MD Dr. Sushil Lakhani, MD Dr. Vivien Lee, MD Yousef Hannawi, MD Tissues: A - Stomach, NOS Procedures: H Pylori (initial) PHYSICIAN & INSTITUTION [address] [address] SPECIMEN INFORMATION: Tissue Source: Gastric ulcer biopsy Clinical Info: Anemia, Abdominal pain Specimen Number: [id number] CPT code: 83004 METHODOLOGY: Deparaffinized sections of prefer/formalin-fixed tissue or PAP/DQ stained slides are incubated with monoclonal/polyclonal antibodies/oligonucleotide probes. Localization is made via biotin free immunoperoxidase method. Appropriate controls are performed and reacted as expected. Results on target cell population are indicated in the following table: RESULTS: ANTIBODY / CLONE RESULT Block A H Pylori (polyclonal) negative These tests were developed and their performance characteristics determined by [facility]. They may not have been cleared or approved by the U.S. Food and Drug Administration. The FDA has determined that such clearance or approval is not necessary. The above immunohistochemical/dualISH markers are ordered and reviewed by the Pathologist. INTERPRETATION: Gastric ulcer, biopsy: Negative for Helicobacter pylori organisms. TYE/ 09/09/23
--- NOTE | 2023-09-08 12:08 | OP.EGD_ITS ---
Patient Name: Lavinia Durand Procedure Date: 09/08/2023 11:26 AM Date of : 1940 Age: 82 Procedure: Upper GI endoscopy Indications: Epigastric abdominal pain, Iron deficiency anemia Providers: David Mike DO Patient Profile: This is an 82 year old female. Refer to note in patient chart for documentation of history and physical. Patient has symptoms of acute epigastric abdominal pain, acute dyspepsia and acute nausea. Complications: No immediate complications. Procedure: Pre-Anesthesia Assessment: - Prior to the procedure, a History and Physical was performed, and patient medications and allergies were reviewed. The patient is competent. The risks and benefits of the procedure and the sedation options and risks were discussed with the patient. All questions were answered and informed consent was obtained. Patient identification and proposed procedure were verified by the physician in the pre-procedure area. Mental Status Examination: alert and oriented. Airway Examination: normal oropharyngeal airway and neck mobility. Respiratory Examination: clear to auscultation. CV Examination: normal. Prophylactic Antibiotics: The patient does not require prophylactic antibiotics. Prior Anticoagulants: The patient has taken no anticoagulant or antiplatelet agents. ASA Grade Assessment: II - A patient with mild systemic disease. After reviewing the risks and benefits, the patient was deemed in satisfactory condition to undergo the procedure. The anesthesia plan was to use monitored anesthesia care (MAC). Immediately prior to administration of medications, the patient was re-assessed for adequacy to receive sedatives. The heart rate, respiratory rate, oxygen saturations, blood pressure, adequacy of pulmonary ventilation, and response to care were monitored throughout the procedure. The physical status of the patient was re-assessed after the procedure. After obtaining informed consent, the endoscope was passed under direct vision. Throughout the procedure, the patient's blood pressure, pulse, and oxygen saturations were monitored continuously. The gastroscope was introduced through the mouth, and advanced to the second part of duodenum. The upper GI endoscopy was accomplished without difficulty. The patient tolerated the procedure well. Scope In: 11:42:40 AM Scope Out: 11:55:49 AM Total Procedure Duration Time 0 hours 13 minutes 9 seconds Findings: The examined esophagus was normal. Patchy mild inflammation characterized by erosions and erythema was found at the incisura and in the gastric antrum. Biopsies were taken with a cold forceps for histology. Verification of patient identification for the specimen was done. Estimated blood loss was minimal. Biopsies were taken with a cold forceps for Helicobacter pylori testing. Verification of patient identification for the specimen was done. Estimated blood loss was minimal. Diffuse moderate mucosal changes characterized by discoloration (likely secondary to melanosis duodenitis) were found in the entire duodenum. Biopsies were taken with a cold forceps for histology. Verification of patient identification for the specimen was done. Estimated blood loss was minimal. A large submucosal mass with no bleeding was found in the second portion of the duodenum. Biopsies were not taken due to the extremely high blood pressure of the patient. Impression: - Normal esophagus. - Chronic gastritis. Biopsied. - Mucosal changes in the duodenum. Biopsied. - Duodenal submucosal mass. - Melanosis duodenitis Recommendation: - [facility]. - Resume previous diet. - Continue present medications. - Await pathology results. - Endoscopic ultrasound with possible FNA of submucoal mass. Differential Diagnosis includes Choledochol cyst, Lipoma, GIST or Duplication cyst. It does not look malignant endoscopically. Procedure Code(s): --- Professional --- 12245, Esophagogastroduodenoscopy, flexible, transoral; with biopsy, single or multiple CPT copyright 2021 [employer]. All rights reserved. The codes documented in this report are preliminary and upon revenue field auditor review may be revised to meet current compliance requirements. David Mike DO 09/08/2023 12:07:58 PM This report has been signed electronically. Number of Addenda: 0 Note Initiated On: 09/08/2023 11:26 AM
--- NOTE | 2023-09-08 12:09 | OP.CCLET_ITS ---
09/08/2023 Jacky Morgan MD [address] [place] [address] [place] [address] Re : Upper GI endoscopy procedure for Lavinia Durand Dear Dr. Morgan This procedure was performed on Friday, September 08, 2023. My impressions and recommendations are as follows: Impressions : - Normal esophagus. - Chronic gastritis. Biopsied. - Mucosal changes in the duodenum. Biopsied. - Duodenal submucosal mass. - Melanosis duodenitis Recommendations : - Return patient to [facility]. - Resume previous diet. - Continue present medications. - Await pathology results. - Endoscopic ultrasound with possible FNA of submucoal mass. Differential Diagnosis includes Choledochol cyst, Lipoma, GIST or Duplication cyst. It does not look malignant endoscopically. My findings are described in the full procedure note, which is enclosed. If I can be of further assistance, please feel free to contact me at . Sincerely, David Mike, 09/08/2023 12:07:58 PM This report has been signed electronically.
[2023-09-08] MEDS: Lactobacillis Acidophilus 2 CAP PO ×2 (13:10→21:00)
[2023-09-08] MEDS: Carvedilol 25 MG Tablet PO ×2 (13:11→20:59)
[2023-09-08] MEDS: Insulin Glargine-YFGN 100 UNIT/ML Pen 12 UNIT SC (13:12)
[2023-09-08] MEDS: Multivitamins,Therapeutic Tablet 1 TABLET PO (13:14)
[2023-09-08] MEDS: amLODIPine 10 MG Tablet PO (13:14)
[2023-09-08] MEDS: Lisinopril 20 MG Tablet PO ×2 (13:16→20:58)
[2023-09-08] MEDS: Furosemide 40 MG/4 ML Vial IV (13:26)
[2023-09-08] MEDS: Pantoprazole Sodium 40 MG in 0.9% Normal Saline (100mL MB+) 100 ML 330 MG IV ×2 (13:31→21:02)
--- NOTE | 2023-09-08 13:54 | CASEMGMT ---
MARYAM received a voice mail from patient's son Jabier. Jabier asked that patient's dialysis be switched to [facility] as of September 26. MARYAM called Jabier and he explained to that patient is to be transferred to [facility]. When patient is discharged from [facility] she will return to [facility] and get her dialysis. September 25 family plans on taking patient home and at that time they want her dialysis switched to [facility]. Jabier gave MARYAM the name of the individual he spoke with at [facility]. (Jc Melissa X [id number], reference number [id number]). MARYAM called Jc with [facility] and explained the situation. Jc said the snf is the one that will need to transfer patient's dialysis to [facility] about a week prior to her discharge from the snf. MARYAM called Jabier and let him know this information. MARYAM also passed along this information to [facility]. Janeth SHEPHERD
--- NOTE | 2023-09-08 14:52 | PN.RENAL_ITS ---
Subjective Subjective Resting in bed. Tolerated dialysis session today. Objective Data Objective Data Vital Signs: Vital Signs Temp Pulse Resp BP Pulse Ox O2 Del Method 97.2 F L 69 16 187/65 H 98 Room Air 09/08/23 12:42 09/08/23 13:17 09/08/23 12:42 09/08/23 13:17 09/08/23 12:42 09/08/23 12:42 Oxygen Delivery Method Room Air Weight: 44.7 kg Body Mass Index (BMI) 19.3 Intake & Output: Intake and Output for Last 24 Hours 09/06/23 09/07/23 09/08/23 23:59 23:59 23:59 Intake Total 725.00 / 725.00 420 / 660 867.5 / 867.5 Output Total 2380 / 2380 250 / 250 2200 / 2200 Balance -1655.00 / -1655.00 170 / 410 -1332.5 / -1332.5 Medical Nutrition Assessment Dietitian: Malnutrition Criteria Met Start: 09/05/23 11:41 Freq: Status: Active Protocol: Document 09/05/23 11:41 SLA (Rec: 09/05/23 11:43 SLA Desktop) Nutrition Malnutrition Evidence of Malnutrition Exists Yes Malnutrition (moderate): Chronic Evidenced By Weight Loss (Severe),Physical Changes (Mild) Intake Problem Inadequate Oral Intake Etiology related to acute illness Signs/Symptoms as evidenced by NPO status Status Active Problem Clinical Problem Altered Nutrient-Related Laboratory Values Etiology related to hx ESRD w/ HD tx Signs/Symptoms as evidenced by BUN 47, Cr 4. 08 Status Active Problem Recommendation Dietitian Recommendations/Changes When medically able, rec HERMELINDA to Renal general - Consistent CHO diet with 4 oz nephro carb steady tid on meal trays for increased nutrition if consumed. Lab / Micro Data 09/08/23 05:10 09/08/23 05:10 Labs: Laboratory Results - last 24 hr 09/08/23 05:10: WBC 10.8, RBC 2.32 L, Hgb 7.0 L, Hct 21.8 L, MCV 94.0, MCH 30.2, MCHC 32.1, RDW Std Deviation 52.7 H, RDW Coeff of Wiliam 15.2 H, Plt Count 114 L, MPV 10.6, Sodium 133 L, Potassium 5.6 H, Chloride 97 L, Carbon Dioxide 25.0, Anion Gap 11, BUN 52 H, Creatinine 5.28 H, Estim Creat Clear Calc 5.80, Est GFR (MDRD) Af Amer 10 L, Est GFR (MDRD) Non-Af 8 L, BUN/Creatinine Ratio 9.8 L, G lucose 242 H, Calcium 8.9 Radiography Diagnostic Testing: Radiology Impression Chest CT 09/06/23 14:09 IMPRESSION: No acute findings in the chest. Electronically Signed: All Ames MD at 17:02 EDT , Physical Exam Narrative Alert awake oriented x 3 no obvious distress no JVD s1s2 no murmurs lungs clear abdomen soft, Nontender no edema Assessment & Plan Assessment/Plan (1) ESRD on hemodialysis: PLAN: - ESRD on HD at [facility] intermediate 4 times a week, Friday/Friday//Friday schedule. Patient underwent hemodialysis today on 2k bath. Likely next HD session will be on Friday. While in hospital will dialyze on Friday, Friday, Friday schedule unless acute need arises. Patient's home dialysis unit is [facility] in [place]. - anemia of chronic disease; underwent EGD today: normal esophagus, chronic gastritis, biopsied. Will monitor hgb trends. Patient to receive [facility]. - Hypertensive crisis; Blood pressures have been improving. On multiple antihypertensives. Off Cardene drip.
--- NOTE | 2023-09-08 16:51 | PN_ITS ---
Subjective Subjective Patient seen and examined. She had no active complaints. She had an uneventful night. Review of systems otherwise negative. She had EGD today which showed normal esophagus with chronic gastritis which was biopsied and a duodenal submucosal mass. Hemoglobin today is 7 and she is awaiting transfer to [facility]. Objective Data Objective Data Vital Signs: Vital Signs Temp Pulse Resp BP Pulse Ox O2 Del Method 97.9 F 68 17 143/53 H 97 Room Air 09/08/23 15:37 09/08/23 15:37 09/08/23 15:37 09/08/23 15:37 09/08/23 15:37 09/08/23 15:37 Oxygen Delivery Method Room Air Weight: 98 lb 8.746 oz Body Mass Index (BMI) 19.3 Intake & Output: Intake and Output for Last 24 Hours 09/06/23 09/07/23 09/08/23 23:59 23:59 23:59 Intake Total 725.00 / 725.00 420 / 660 867.5 / 867.5 Output Total 2380 / 2380 250 / 250 2200 / 2200 Balance -1655.00 / -1655.00 170 / 410 -1332.5 / -1332.5 Medical Nutrition Assessment Dietitian: Malnutrition Criteria Met Start: 09/05/23 11:41 Freq: Status: Active Protocol: Document 09/05/23 11:41 SLA (Rec: 09/05/23 11:43 SLA Desktop) Nutrition Malnutrition Evidence of Malnutrition Exists Yes Malnutrition (moderate): Chronic Evidenced By Weight Loss (Severe),Physical Changes (Mild) Intake Problem Inadequate Oral Intake Etiology related to acute illness Signs/Symptoms as evidenced by NPO status Status Active Problem Clinical Problem Altered Nutrient-Related Laboratory Values Etiology related to hx ESRD w/ HD tx Signs/Symptoms as evidenced by BUN 47, Cr 4. 08 Status Active Problem Recommendation Dietitian Recommendations/Changes When medically able, rec HERMELINDA to Renal general - Consistent CHO diet with 4 oz nephro carb steady tid on meal trays for increased nutrition if consumed. Lab / Micro Data 09/08/23 05:10 09/08/23 05:10 Labs: Laboratory Results - last 24 hr 09/08/23 05:10: WBC 10.8, RBC 2.32 L, Hgb 7.0 L, Hct 21.8 L, MCV 94.0, MCH 30.2, MCHC 32.1, RDW Std Deviation 52.7 H, RDW Coeff of Wiliam 15.2 H, Plt Count 114 L, MPV 10.6, Sodium 133 L, Potassium 5.6 H, Chloride 97 L, Carbon Dioxide 25.0, Anion Gap 11, BUN 52 H, Creatinine 5.28 H, Estim Creat Clear Calc 5.80, Est GFR (MDRD) Af Amer 10 L, Est GFR (MDRD) Non-Af 8 L, BUN/Creatinine Ratio 9.8 L, Glucose 242 H, Calcium 8.9 Radiography Diagnostic Testing: Radiology Impression Chest CT 09/06/23 14:09 IMPRESSION: No acute findings in the chest. Electronically Signed: All Ames MD at 17:02 EDT , Physical Exam Const alert, oriented x3, no apparent distress and well nourished General Appearance: cooperative and well developed HEENT normocephalic, head/scalp atraumatic, moist oral mucous membranes and oropharynx normal Eyes PERRL and EOMs intact bilaterally Neck no lymphadenopathy and supple Lymph Lymphatic: no lymphadenopathy noted and no lymphedema noted Resp normal respiratory effort, normal air movement and clear to auscultation bilaterally Cardio regular rate, regular rhythm, S1 normal heart sound, S2 normal heart sound and no murmurs GI normal to inspection, nondistended, normoactive bowel sounds and soft to palpation Extremity normal capillary refill, no clubbing, cyanosis or edema and no calf tenderness General Extremity: no tenderness to palpation of joints or extremities Skin General Skin Exam: no breakdown Neuro CN's II-XII intact bilaterally, no focal motor deficits, no sensory deficits noted and deep tendon reflexes 2+ bilaterally Motor Exam: general weakness Psych thought process normal, cooperative and affect normal Appearance: appropriate Assessment & Plan Assessment/Plan (1) Hypertensive encephalopathy: PLAN: Plan #Hypertensive encephalopathy * Resolved. Now on no home p.o. meds. Amlodipine added on. IV hydralazine as needed and also on p.o. clonidine as needed. #Altered mental status * Has been having episodic altered mental status and is thought to be due to whether patient is on steroids or not. Workup so far has been negative apart from positive paraneoplastic workup. * Neurology reviewed patient and felt she could be considered for IVIG versus plasmapheresis in light of chronic immunosuppression and recommended that patient be transferred to [facility]. Accepted and awaiting transfer. * Currently on IV Solu-Medrol. * # #Acute on chronic anemia: * Hemoglobin today 7. Was transfused due to interval progress blood cells during this admission. * Hemoglobin was 6.1 yesterday and received blood. She had EGD today which showed normal esophagus with chronic gastritis which was biopsied and mucosal changes in the duodenum which was also biopsied as well as a duodenal submucosal mass and melanosis duodenitis. * Recommendation was for patient to have endoscopic ultrasound with possible FNA of the submucosal mass in. * Per GI note, it did not look malignant endoscopically. * Will repeat H&H to determine transfusion * * #History of metastatic renal cell carcinoma: S/p right nephrectomy. Undergoing outpatient treatment with BCG. #Hypothyroidism: On Synthroid. #Hyperkalemia: K is 5.6. This was before dialysis, so should have improved with dialysis. Will monitor. 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 Patient has been receiving BCG. QuantiFERON test is pending. #GERD: On PPI #ESRD: on HD. Had dialysis today. Nephrology on board. #History of rheumatoid arthritis: Stable #DVT prophylaxis: Lovenox Disposition; awaiting transfer Charges/Coding Visit Charges Inpatient E&M: 68974 Subs Hosp L2
[2023-09-08 18:15] LABS: Hematocrit 23.4 % (37-47); Hemoglobin 7.5 g/dL (12.0-15.0)
[2023-09-08] MEDS: Latanoprost 0.005% 1 Bottle 1 DRP EACH EYE (21:00)
[2023-09-08] MEDS: 0.9% Saline Lock 10 ML Syringe IV (21:04)
[2023-09-08] MEDS: Acetaminophen 325 MG Tablet 650 MG PO (21:46)
[2023-09-09] VITALS (14 sets, daily range): BP systolic 151–189; BP diastolic 50–78; PULSE 65–84; RESP 14–22; TEMP 36.6–36.9; O2SAT 94–100
[2023-09-09] MEDS: cloNIDine HCl 0.1 MG Tablet PO ×2 (01:48→17:49)
[2023-09-09] MEDS: Levothyroxine 25 MCG TABLET PO (05:35)
[2023-09-09] MEDS: hydrALAZINE 50 MG Tablet 100 MG PO ×3 (05:35→21:40)
[2023-09-09 07:32] LABS: Absolute Lymphocyte Count 0.62 X10^3/uL (0.83-4.51); Absolute Neutrophil Count 9.4 X10^3/uL (2.0-7.7); Basophil# 0.01 X10^3/uL; Basophil% 0.1 % (0-1); Hematocrit 21.5 % (37-47); Hemoglobin 6.9 g/dL (12.0-15.0); Lymphocyte # 0.62 X10^3/ul (0.83-4.51); Lymphocyte % 5.9 % (19-41); Mean Corp Hgb Conc 32.1 g/dL (32-36); Mean Corpuscular Hgb 30.8 pg (27.0-32.0); Mean Platelet Vol. 11.4 fl (6.2-12.0); Monocyte# 0.23 X10^3/uL; Monocyte% 2.2 % (0-10); NRBC Flagged by Analyzer 0 % (0-5); Neutrophil # 9.42 X10^3/uL (2.7-7.7); Neutrophil % 90.4 % (47-70); Platelet Count 108 K/mm3 (150-450); RBC Distribution Width CV 15.2 % (11.6-14.6); RBC Distribution Width SD 53.1 fl (35.1-43.9); Red Blood Count 2.24 M/mm3 (4.2-5.4); White Blood Count 10.4 K/mm3 (4.4-11.0)
[2023-09-09 08:01] LABS: Anion Gap 7 (5-15); BUN 46 mg/dL (7-18); BUN/Creat Ratio 10.6 RATIO (10-20); Calcium,Total 8.6 mg/dL (8.5-10.1); Chloride 99 mmol/L (98-107); Creatinine, Serum 4.34 mg/dL (0.55-1.02); EST Glomerular Filtration Rate 10 mL/min (>60); Est Glom Filt Rate - Afr Amer 13 mL/min (>60); Estimated Creatinine Clearance 7.05 ml/min; Glucose 276 mg/dL (74-106); Potassium 5.3 mmol/L (3.5-5.1); Sodium Level 130 mmol/L (136-145)
[2023-09-09] MEDS: amLODIPine 10 MG Tablet PO (10:03)
[2023-09-09] MEDS: Carvedilol 25 MG Tablet PO ×2 (10:03→21:40)
[2023-09-09] MEDS: Furosemide 40 MG/4 ML Vial IV (10:03)
[2023-09-09] MEDS: Lisinopril 20 MG Tablet PO ×2 (10:03→21:40)
[2023-09-09] MEDS: Lactobacillis Acidophilus 2 CAP PO ×2 (10:03→21:39)
[2023-09-09] MEDS: Insulin Glargine-YFGN 100 UNIT/ML Pen 12 UNIT SC (10:04)
[2023-09-09] MEDS: Multivitamins,Therapeutic Tablet 1 TABLET PO (10:05)
[2023-09-09] MEDS: Pantoprazole Sodium 40 MG in 0.9% Normal Saline (100mL MB+) 100 ML 330 MG IV ×2 (10:21→21:46)
--- NOTE | 2023-09-09 10:45 | PN_ITS ---
Subjective Subjective Patient seen and examined. She had no active complaints. Review of symptoms otherwise negative. She is awaiting transfer to [facility]. Hemoglobin today 6.9. Repeat H&H pending and if still low will transfuse with 1 unit of packed red blood cells. Objective Data Objective Data Vital Signs: Vital Signs Temp Pulse Resp BP Pulse Ox O2 Del Method 98.0 F 71 17 189/64 H 100 Room Air 09/09/23 10:01 09/09/23 10:01 09/09/23 10:01 09/09/23 10:01 09/09/23 10:01 09/09/23 10:01 Oxygen Delivery Method Room Air Weight: 101 lb 13.657 oz Body Mass Index (BMI) 20.0 Intake & Output: Intake and Output for Last 24 Hours 09/07/23 09/08/23 09/09/23 23:59 23:59 23:59 Intake Total 420 / 660 2207.5 / 2207.5 180 / 180 Output Total 250 / 250 2300 / 2450 150 / 150 Balance 170 / 410 -92.5 / -242.5 30 / 30 Medical Nutrition Assessment Dietitian: Malnutrition Criteria Met Start: 09/05/23 11:41 Freq: Status: Active Protocol: Document 09/05/23 11:41 SLA (Rec: 09/05/23 11:43 SLA Desktop) Nutrition Malnutrition Evidence of Malnutrition Exists Yes Malnutrition (moderate): Chronic Evidenced By Weight Loss (Severe),Physical Changes (Mild) Intake Problem Inadequate Oral Intake Etiology related to acute illness Signs/Symptoms as evidenced by NPO status Status Active Problem Clinical Problem Altered Nutrient-Related Laboratory Values Etiology related to hx ESRD w/ HD tx Signs/Symptoms as evidenced by BUN 47, Cr 4. 08 Status Active Problem Recommendation Dietitian Recommendations/Changes When medically able, rec HERMELINDA to Renal general - Consistent CHO diet with 4 oz nephro carb steady tid on meal trays for increased nutrition if consumed. Lab / Micro Data 09/09/23 06:50 09/09/23 06:50 Labs: Laboratory Results - last 24 hr 09/08/23 17:56: Hgb 7.5 L, Hct 23.4 L 09/09/23 06:50: WBC 10.4, RBC 2.24 L, Hgb 6.9 L, Hct 21.5 L, MCV 96.0, MCH 30.8, MCHC 32.1, RDW Std Deviation 53.1 H, RDW Coeff of Wiliam 15.2 H, Plt Count 108 L, MPV 11.4, Immature Gran % (Auto) 1.400 H, Neut % (Auto) 90.4 H, Lymph % (Auto) 5.9 L, [place] % (Auto) 2.2, Eos % (Auto) 0.0, Baso % (Auto) 0.1, Absolute Neuts (auto) 9.4 H, Absolute Lymphs (auto) 0.62 L, Nucleated RBC % 0, Sodium 130 L, P otassium 5.3 H, Chloride 99, Carbon Dioxide 24.0, Anion Gap 7, BUN 46 H, C reatinine 4.34 H, Estim Creat Clear Calc 7.05, Est GFR (MDRD) Af Amer 13 L, Est GFR (MDRD) Non-Af 10 L, BUN/Creatinine Ratio 10.6, Glucose 276 H, Calcium 8.6 Physical Exam Const alert, oriented x3 and no apparent distress Constitutional Narrative: frail General Appearance: cooperative HEENT normocephalic, head/scalp atraumatic, moist oral mucous membranes and oropharynx normal Eyes PERRL and EOMs intact bilaterally Neck no lymphadenopathy and supple Lymph Lymphatic: no lymphadenopathy noted and no lymphedema noted Resp normal respiratory effort, normal air movement and clear to auscultation bilaterally Cardio regular rate, regular rhythm, S1 normal heart sound, S2 normal heart sound and no murmurs GI normal to inspection, nondistended, normoactive bowel sounds and soft to palpation Extremity normal capillary refill, no clubbing, cyanosis or edema and no calf tenderness General Extremity: no tenderness to palpation of joints or extremities Skin General Skin Exam: no breakdown Neuro CN's II-XII intact bilaterally, no focal motor deficits, no sensory deficits noted and deep tendon reflexes 2+ bilaterally Sensorium / Orientation: awake, alert, oriented to person and oriented to place Motor Exam: general weakness Psych thought process normal, cooperative and affect normal Appearance: appropriate Assessment & Plan Assessment/Plan (1) Hypertensive encephalopathy: PLAN: Plan #Hypertensive encephalopathy * Resolved. Now on no home p.o. meds. * Amlodipine added on. IV hydralazine as needed and also on p.o. clonidine as needed. #Altered mental status * Has been having episodic altered mental status and is thought to be due to whether patient is on steroids or not. Workup so far has been negative apart from positive paraneoplastic workup. * Neurology reviewed patient and felt she could be considered for IVIG versus plasmapheresis in light of chronic immunosuppression and recommended that patient be transferred to [facility]. Accepted and awaiting transfer. * Currently on IV Solu-Medrol. * #Acute on chronic anemia: * Hemoglobin today is 6.9. Repeat H&H pending * She had EGD today which showed normal esophagus with chronic gastritis which was biopsied and mucosal changes in the duodenum which was also biopsied as well as a duodenal submucosal mass and melanosis duodenitis. * Recommendation was for patient to have endoscopic ultrasound with possible FNA of the submucosal mass in. * Per GI note, it did not look malignant endoscopically. * transfuse if Hb <7 * * #History of metastatic renal cell carcinoma: S/p right nephrectomy. Undergoing outpatient treatment with BCG. #Hypothyroidism: On Synthroid. #Hyperkalemia: K is 5.3 today. will give kayexalate and trend. 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 Patient has been receiving BCG. QuantiFERON test is pending. #GERD: On PPI #ESRD: on HD. Had dialysis today. Nephrology on board. #History of rheumatoid arthritis: Stable #DVT prophylaxis: Lovenox Disposition; awaiting transfer to [facility] pending bed availability Charges/Coding Visit Charges Inpatient E&M: 86534 Subs Hosp L2
--- NOTE | 2023-09-09 11:00 | PN.RENAL_ITS ---
Subjective Subjective Sitting up in bed. No complaints. No overnight events. Awaiting transfer to [facility]. Objective Data Objective Data Vital Signs: Vital Signs Temp Pulse Resp BP Pulse Ox O2 Del Method 98.0 F 71 17 189/64 H 100 Room Air 09/09/23 10:01 09/09/23 10:01 09/09/23 10:01 09/09/23 10:01 09/09/23 10:01 09/09/23 10:01 Oxygen Delivery Method Room Air Weight: 46.2 kg Body Mass Index (BMI) 20.0 Intake & Output: Intake and Output for Last 24 Hours 09/07/23 09/08/23 09/09/23 23:59 23:59 23:59 Intake Total 420 / 660 2207.5 / 2207.5 290 / 290 Output Total 250 / 250 2300 / 2450 150 / 150 Balance 170 / 410 -92.5 / -242.5 140 / 140 Medical Nutrition Assessment Dietitian: Malnutrition Criteria Met Start: 09/05/23 11:41 Freq: Status: Active Protocol: Document 09/05/23 11:41 SLA (Rec: 09/05/23 11:43 SLA Desktop) Nutrition Malnutrition Evidence of Malnutrition Exists Yes Malnutrition (moderate): Chronic Evidenced By Weight Loss (Severe),Physical Changes (Mild) Intake Problem Inadequate Oral Intake Etiology related to acute illness Signs/Symptoms as evidenced by NPO status Status Active Problem Clinical Problem Altered Nutrient-Related Laboratory Values Etiology related to hx ESRD w/ HD tx Signs/Symptoms as evidenced by BUN 47, Cr 4. 08 Status Active Problem Recommendation Dietitian Recommendations/Changes When medically able, rec HERMELINDA to Renal general - Consistent CHO diet with 4 oz nephro carb steady tid on meal trays for increased nutrition if consumed. Lab / Micro Data 09/09/23 06:50 09/09/23 06:50 Labs: Laboratory Results - last 24 hr 09/08/23 17:56: Hgb 7.5 L, Hct 23.4 L 09/09/23 06:50: WBC 10.4, RBC 2.24 L, Hgb 6.9 L, Hct 21.5 L, MCV 96.0, MCH 30.8, MCHC 32.1, RDW Std Deviation 53.1 H, RDW Coeff of Wiliam 15.2 H, Plt Count 108 L, MPV 11.4, Immature Gran % (Auto) 1.400 H, Neut % (Auto) 90.4 H, Lymph % (Auto) 5.9 L, [place] % (Auto) 2.2, Eos % (Auto) 0.0, Baso % (Auto) 0.1, Absolute Neuts (auto) 9.4 H, Absolute Lymphs (auto) 0.62 L, Nucleated RBC % 0, Sodium 130 L, P otassium 5.3 H, Chloride 99, Carbon Dioxide 24.0, Anion Gap 7, BUN 46 H, C reatinine 4.34 H, Estim Creat Clear Calc 7.05, Est GFR (MDRD) Af Amer 13 L, Est GFR (MDRD) Non-Af 10 L, BUN/Creatinine Ratio 10.6, Glucose 276 H, Calcium 8.6 Physical Exam Narrative Alert awake oriented x 3 no obvious distress no JVD s1s2 no murmurs lungs clear abdomen soft, Nontender no edema AV fistula left upper arm positive thrill and bruit Assessment & Plan Assessment/Plan (1) ESRD on hemodialysis: PLAN: - ESRD on HD at [facility] 4 times a week, Friday/Friday//Friday schedule. Patient underwent hemodialysis yesterday. No acute indication for [employer] today. Will plan for dialysis tomorrow on 2K bath with fluid removal as patient/blood pressure tolerates. While in hospital will dialyze on Friday, Friday, Friday schedule unless acute need arises. Patient's home dialysis unit is [facility] in [place]. - anemia of chronic disease; underwent EGD: normal esophagus, chronic gastritis, biopsied. Will monitor hgb trends. Patient to receive CIERA. If patient needs PRBC this can be given during HD tomorrow. - Hypertensive crisis; Blood pressures have been improving. On multiple antihypertensives. Off Cardene drip.
[2023-09-09] MEDS: Sodium Polystyrene Sulfonate 15 GM/60 ML UDC PO (12:58)
--- NOTE | 2023-09-09 18:40 | PN.GI_ITS ---
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 Objective Data Objective Data Vital Signs: Vital Signs Temp Pulse Resp BP Pulse Ox O2 Del Method 98.5 F 84 22 H 173/64 H 97 Room Air 09/09/23 17:06 09/09/23 17:06 09/09/23 17:06 09/09/23 17:06 09/09/23 17:06 09/09/23 17:06 Oxygen Delivery Method Room Air Weight: 101 lb 13.657 oz Body Mass Index (BMI) 20.0 Intake & Output: Intake and Output for Last 24 Hours 09/07/23 09/08/23 09/09/23 23:59 23:59 23:59 Intake Total 420 / 660 2207.5 / 2207.5 1250 / 1250 Output Total 250 / 250 2300 / 2450 150 / 150 Balance 170 / 410 -92.5 / -242.5 1100 / 1100 Medical Nutrition Assessment Dietitian: Malnutrition Criteria Met Start: 09/05/23 11:41 Freq: Status: Active Protocol: Document 09/05/23 11:41 SLA (Rec: 09/05/23 11:43 SLA Desktop) Nutrition Malnutrition Evidence of Malnutrition Exists Yes Malnutrition (moderate): Chronic Evidenced By Weight Loss (Severe),Physical Changes (Mild) Intake Problem Inadequate Oral Intake Etiology related to acute illness Signs/Symptoms as evidenced by NPO status Status Active Problem Clinical Problem Altered Nutrient-Related Laboratory Values Etiology related to hx ESRD w/ HD tx Signs/Symptoms as evidenced by BUN 47, Cr 4. 08 Status Active Problem Recommendation Dietitian Recommendations/Changes When medically able, rec HERMELINDA to Renal general - Consistent CHO diet with 4 oz nephro carb steady tid on meal trays for increased nutrition if consumed. Lab / Micro Data 09/09/23 11:00 09/09/23 06:50 Labs: Laboratory Results - last 24 hr 09/09/23 06:50: WBC 10.4, RBC 2.24 L, Hgb 6.9 L, Hct 21.5 L, MCV 96.0, MCH 30.8, MCHC 32.1, RDW Std Deviation 53.1 H, RDW Coeff of Wiliam 15.2 H, Plt Count 108 L, MPV 11.4, Immature Gran % (Auto) 1.400 H, Neut % (Auto) 90.4 H, Lymph % (Auto) 5.9 L, [place] % (Auto) 2.2, Eos % (Auto) 0.0, Baso % (Auto) 0.1, Absolute Neuts (auto) 9.4 H, Absolute Lymphs (auto) 0.62 L, Nucleated RBC % 0, Sodium 130 L, P otassium 5.3 H, Chloride 99, Carbon Dioxide 24.0, Anion Gap 7, BUN 46 H, C reatinine 4.34 H, Estim Creat Clear Calc 7.05, Est GFR (MDRD) Af Amer 13 L, Est GFR (MDRD) Non-Af 10 L, BUN/Creatinine Ratio 10.6, Glucose 276 H, Calcium 8.6 09/09/23 11:00: Hgb 7.0 L, Hct 22.0 L 09/09/23 17:25: Crossmatch See Detail Physical Exam Narrative Alert awake oriented x 3 no obvious distress no JVD s1s2 no murmurs lungs clear abdomen soft, Nontender no edema AV fistula left upper arm positive thrill and bruit Assessment & Plan Assessment/Plan (1) Hypertensive encephalopathy: (2) Hyperkalemia: (3) Anemia: QUALIFIERS: Anemia type: unspecified type Qualified Code(s): D 64.9 - Anemia, unspecified (4) Hypertensive crisis: PLAN: Plan I talked to her daughter and give her an update regarding her diagnosis and prognosis from a GI standpoint. She has gained 3 pounds and is eating little bit better. She is still very somnolent. Hypertensive crisis -Resolved Abdominal pain/nausea/vomiting -Diet has been advanced and is tolerating well -Patient states he gets this intermittently when she is on dialysis -Is able to tell me more today that it is in the epigastric region -Concerned about peptic ulcer disease especially with acute anemia on presentation -She does have a duodenal mass that is likely. Normal bowel affect. She needs to get endoscopic ultrasound to fully evaluate this submucosal lesion as it could be a GIST tumor, lipoma, liposarcoma, duplication cyst. Acute on chronic anemia -Hemoglobin 7.0 today after being down to 6.9 yesterday -Patient has been on relatively high doses of steroids over the last few weeks intermittently so a concern about peptic ulcer disease is being a potential etiology -Transfused 2 units packed red blood cells -Iron studies are not consistent with iron deficiency -Guaiac ordered but remains pending -Repeat CBC in a.m. -Eventually she will need a colonoscopy 2 and a capsule endoscopy to evaluate her whole GI tract because she will need to be on steroids. . Charges/Coding Visit Charges Inpatient E&M: 64168 Subs Hosp L3
[2023-09-09] MEDS: Latanoprost 0.005% 1 Bottle 1 DRP EACH EYE (21:39)
[2023-09-09 22:06] LABS: QNTFERON TB Mitogen Value > 10.00 IU/mL (.); QNTFERON TB Nil Value 0.04 IU/mL (.); QNTFERON TB1+ Ag Value 0.11 IU/mL (.); QNTFERON TB2+ Ag Value 0.14 IU/mL (.); QNTIFERON TB Positive Criteria Negative (Negative)
[2023-09-09] MEDS: Acetaminophen 325 MG Tablet 650 MG PO (22:23)
[2023-09-10] VITALS (20 sets, daily range): BP systolic 11–267; BP diastolic 50–74; PULSE 57–85; RESP 14–22; TEMP 36.7–36.9; O2SAT 97–99; BMI 20.5; BMI 19.7
[2023-09-10] MEDS: hydrALAZINE 50 MG Tablet 100 MG PO ×2 (06:21→16:59)
[2023-09-10] MEDS: Levothyroxine 25 MCG TABLET PO (06:22)
[2023-09-10 07:54] LABS: Absolute Lymphocyte Count 0.75 X10^3/uL (0.83-4.51); Absolute Neutrophil Count 9.7 X10^3/uL (2.0-7.7); Basophil# 0.01 X10^3/uL; Basophil% 0.1 % (0-1); Hematocrit 24.7 % (37-47); Hemoglobin 8.3 g/dL (12.0-15.0); Lymphocyte # 0.75 X10^3/ul (0.83-4.51); Lymphocyte % 6.8 % (19-41); Mean Corp Hgb Conc 33.6 g/dL (32-36); Mean Corpuscular Hgb 30.6 pg (27.0-32.0); Mean Corpuscular Volume 91.1 fL (81-99); Mean Platelet Vol. 11.2 fl (6.2-12.0); Monocyte# 0.26 X10^3/uL; Monocyte% 2.4 % (0-10); NRBC Flagged by Analyzer 0 % (0-5); Neutrophil # 9.67 X10^3/uL (2.7-7.7); Neutrophil % 88.2 % (47-70); Platelet Count 115 K/mm3 (150-450); RBC Distribution Width CV 16.1 % (11.6-14.6); RBC Distribution Width SD 53.5 fl (35.1-43.9); Red Blood Count 2.71 M/mm3 (4.2-5.4)
[2023-09-10] MEDS: Carvedilol 25 MG Tablet PO (08:23)
[2023-09-10] MEDS: Lactobacillis Acidophilus 2 CAP PO (08:23)
[2023-09-10] MEDS: Furosemide 40 MG/4 ML Vial IV (08:24)
[2023-09-10] MEDS: Lisinopril 20 MG Tablet PO (08:24)
[2023-09-10] MEDS: amLODIPine 10 MG Tablet PO (08:25)
[2023-09-10 08:35] LABS: Anion Gap 8 (5-15); BUN 65 mg/dL (7-18); BUN/Creat Ratio 13.2 RATIO (10-20); Calcium,Total 9.1 mg/dL (8.5-10.1); Chloride 99 mmol/L (98-107); Creatinine, Serum 4.94 mg/dL (0.55-1.02); EST Glomerular Filtration Rate 9 mL/min (>60); Est Glom Filt Rate - Afr Amer 11 mL/min (>60); Glucose 207 mg/dL (74-106); Potassium 5.3 mmol/L (3.5-5.1); Sodium Level 130 mmol/L (136-145)
[2023-09-10] MEDS: Pantoprazole Sodium 40 MG in 0.9% Normal Saline (100mL MB+) 100 ML 330 MG IV (08:44)
[2023-09-10] MEDS: Insulin Glargine-YFGN 100 UNIT/ML Pen 12 UNIT SC (08:45)
[2023-09-10 11:44] LABS: Bedside Glucose 285 mg/dL (74-106)
[2023-09-10] MEDS: 0.9% Normal Saline 1,000 ML IV.SOLN. 1000 ML OPERA.SITE (11:52)
[2023-09-10] MEDS: PureFlow B 2K Dialysis Soln 1 BAG 6 BAG PF (11:53)
--- NOTE | 2023-09-10 13:10 | PN_ITS ---
Subjective Subjective Patient seen and examined. She had no complaints. She had an uneventful night. Review of systems is otherwise negative. She is still awaiting transfer to [facility]. Objective Data Objective Data Vital Signs: Vital Signs Temp Pulse Resp BP Pulse Ox O2 Del Method 98.2 F 67 15 167/55 H 97 Room Air 09/10/23 11:40 09/10/23 12:59 09/10/23 12:59 09/10/23 12:59 09/10/23 11:58 09/10/23 12:59 Oxygen Delivery Method Room Air Weight: 104 lb 7.986 oz Body Mass Index (BMI) 20.5 Intake & Output: Intake and Output for Last 24 Hours 09/08/23 09/09/23 09/10/23 23:59 23:59 23:59 Intake Total 2207.5 / 2207.5 1840 / 1840 111 / 111 Output Total 2300 / 2450 2400 / 2400 50 / 50 Balance -92.5 / -242.5 -560 / -560 61 / 61 Medical Nutrition Assessment Dietitian: Malnutrition Criteria Met Start: 09/05/23 11:41 Freq: Status: Active Protocol: Document 09/05/23 11:41 SLA (Rec: 09/05/23 11:43 SLA Desktop) Nutrition Malnutrition Evidence of Malnutrition Exists Yes Malnutrition (moderate): Chronic Evidenced By Weight Loss (Severe),Physical Changes (Mild) Intake Problem Inadequate Oral Intake Etiology related to acute illness Signs/Symptoms as evidenced by NPO status Status Active Problem Clinical Problem Altered Nutrient-Related Laboratory Values Etiology related to hx ESRD w/ HD tx Signs/Symptoms as evidenced by BUN 47, Cr 4. 08 Status Active Problem Recommendation Dietitian Recommendations/Changes When medically able, rec HERMELINDA to Renal general - Consistent CHO diet with 4 oz nephro carb steady tid on meal trays for increased nutrition if consumed. Lab / Micro Data 09/10/23 07:40 09/10/23 07:40 Labs: Laboratory Results - last 24 hr 09/07/23 10:20: TB Test (QFT) Nil 0.04, TB Test (QFT) Mitogen > 10.00, TB Test (QFT) Ag 1 0.11, TB Test (QFT) Ag 2 0.14, TB Test (QFT) Comment, TB Positive Criteria Negative 09/09/23 17:25: Blood Type O POSITIVE, Antibody Screen NEGATIVE, Crossmatch See Detail 09/10/23 07:40: WBC 11.0, RBC 2.71 L, Hgb 8.3 L, Hct 24.7 L, MCV 91.1 D, MCH 30.6, MCHC 33.6, RDW Std Deviation 53.5 H, RDW Coeff of Wiliam 16.1 H, Plt Count 115 L, MPV 11.2, Immature Gran % (Auto) 2.500 H, Neut % (Auto) 88.2 H, Lymph % (Auto) 6.8 L, [place] % (Auto) 2.4, Eos % (Auto) 0.0, Baso % (Auto) 0.1, Absolute Neuts (auto) 9.7 H, Absolute Lymphs (auto) 0.75 L, Nucleated RBC % 0, Sodium 130 L, Potassium 5.3 H, Chloride 99, Carbon Dioxide 23.0, Anion Gap 8, BUN 65 H, C reatinine 4.94 H, Estim Creat Clear Calc 6.20, Est GFR (MDRD) Af Amer 11 L, Est GFR (MDRD) Non-Af 9 L, BUN/Creatinine Ratio 13.2, Glucose 207 H, Calcium 9.1 09/10/23 11:12: POC Glucose 285 H Physical Exam Const alert, oriented x3, no apparent distress and well nourished Constitutional Narrative: frail General Appearance: cooperative and well developed HEENT normocephalic, head/scalp atraumatic, moist oral mucous membranes and oropharynx normal Eyes PERRL and EOMs intact bilaterally Neck no lymphadenopathy and supple Lymph Lymphatic: no lymphadenopathy noted and no lymphedema noted Resp normal respiratory effort, normal air movement and clear to auscultation bilaterally Cardio regular rate, regular rhythm, S1 normal heart sound, S2 normal heart sound and no murmurs Cardio Narrative: GI normal to inspection, nondistended, normoactive bowel sounds and soft to palpation Extremity normal capillary refill, no clubbing, cyanosis or edema and no calf tenderness General Extremity: no tenderness to palpation of joints or extremities Skin General Skin Exam: no breakdown Neuro CN's II-XII intact bilaterally, no focal motor deficits, no sensory deficits noted and deep tendon reflexes 2+ bilaterally Sensorium / Orientation: awake, alert, oriented to person and oriented to place Motor Exam: general weakness Psych thought process normal, cooperative and affect normal Appearance: appropriate Assessment & Plan Assessment/Plan (1) Hypertensive encephalopathy: PLAN: Plan #Hypertensive encephalopathy * Resolved. * Amlodipine and carvedilol as well as lisinopril. IV hydralazine as needed and also on p.o. clonidine as needed. #Altered mental status * Has been having episodic altered mental status and is thought to be due to whether patient is on steroids or not. Workup so far has been negative apart from positive paraneoplastic workup. * Neurology reviewed patient and felt she could be considered for IVIG versus plasmapheresis in light of chronic immunosuppression and recommended that patient be transferred to [facility]. Accepted and awaiting transfer. * Currently on IV Solu-Medrol. * #Acute on chronic anemia: * Hemoglobin today is 8.3 She was transfused with one more unit of PRBC yesterday. * She had EGD during this admission which showed normal esophagus with chronic gastritis which was biopsied and mucosal changes in the duodenum which was also biopsied as well as a duodenal submucosal mass and melanosis duodenitis. * Recommendation was for patient to have endoscopic ultrasound with possible FNA of the submucosal mass in. * Per GI note, it did not look malignant endoscopically. * transfuse if Hb <7 * * #History of metastatic renal cell carcinoma: S/p right nephrectomy. Undergoing outpatient treatment with BCG. #Hypothyroidism: On Synthroid. #Hyperkalemia: K remains 5.3. For dialysis today. 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 Patient has been receiving BCG. QuantiFERON test is pending. #GERD: On PPI #ESRD: on HD. on dialysis MWF. Nephrology on board. #History of rheumatoid arthritis: Stable #DVT prophylaxis: Lovenox Disposition; awaiting transfer to [facility] pending bed availability
[2023-09-10] MEDS: Epoetin Alfa epbx 10,000 UNIT/ML 10000 UNIT IV (13:32)
--- NOTE | 2023-09-10 13:51 | PN.RENAL_ITS ---
Subjective Subjective Sleepy today mostly. Objective Data Objective Data Vital Signs: Vital Signs Temp Pulse Resp BP Pulse Ox O2 Del Method 98.2 F 61 16 166/55 H 97 Room Air 09/10/23 11:40 09/10/23 13:45 09/10/23 13:45 09/10/23 13:45 09/10/23 11:58 09/10/23 13:45 Oxygen Delivery Method Room Air Weight: 47.4 kg Body Mass Index (BMI) 20.5 Intake & Output: Intake and Output for Last 24 Hours 09/08/23 09/09/23 09/10/23 23:59 23:59 23:59 Intake Total 2207.5 / 2207.5 1840 / 1840 111 / 111 Output Total 2300 / 2450 2400 / 2400 50 / 50 Balance -92.5 / -242.5 -560 / -560 61 / 61 Medical Nutrition Assessment Dietitian: Malnutrition Criteria Met Start: 09/05/23 11:41 Freq: Status: Active Protocol: Document 09/05/23 11:41 SLA (Rec: 09/05/23 11:43 SLA Desktop) Nutrition Malnutrition Evidence of Malnutrition Exists Yes Malnutrition (moderate): Chronic Evidenced By Weight Loss (Severe),Physical Changes (Mild) Intake Problem Inadequate Oral Intake Etiology related to acute illness Signs/Symptoms as evidenced by NPO status Status Active Problem Clinical Problem Altered Nutrient-Related Laboratory Values Etiology related to hx ESRD w/ HD tx Signs/Symptoms as evidenced by BUN 47, Cr 4. 08 Status Active Problem Recommendation Dietitian Recommendations/Changes When medically able, rec HERMELINDA to Renal general - Consistent CHO diet with 4 oz nephro carb steady tid on meal trays for increased nutrition if consumed. Lab / Micro Data 09/10/23 07:40 09/10/23 07:40 Labs: Laboratory Results - last 24 hr 09/07/23 10:20: TB Test (QFT) Nil 0.04, TB Test (QFT) Mitogen > 10.00, TB Test (QFT) Ag 1 0.11, TB Test (QFT) Ag 2 0.14, TB Test (QFT) Comment, TB Positive Criteria Negative 09/09/23 17:25: Blood Type O POSITIVE, Antibody Screen NEGATIVE, Crossmatch See Detail 09/10/23 07:40: WBC 11.0, RBC 2.71 L, Hgb 8.3 L, Hct 24.7 L, MCV 91.1 D, MCH 30.6, MCHC 33.6, RDW Std Deviation 53.5 H, RDW Coeff of Wiliam 16.1 H, Plt Count 115 L, MPV 11.2, Immature Gran % (Auto) 2.500 H, Neut % (Auto) 88.2 H, Lymph % (Auto) 6.8 L, [place] % (Auto) 2.4, Eos % (Auto) 0.0, Baso % (Auto) 0.1, Absolute Neuts (auto) 9.7 H, Absolute Lymphs (auto) 0.75 L, Nucleated RBC % 0, Sodium 130 L, Potassium 5.3 H, Chloride 99, Carbon Dioxide 23.0, Anion Gap 8, BUN 65 H, C reatinine 4.94 H, Estim Creat Clear Calc 6.20, Est GFR (MDRD) Af Amer 11 L, Est GFR (MDRD) Non-Af 9 L, BUN/Creatinine Ratio 13.2, Glucose 207 H, Calcium 9.1 09/10/23 11:12: POC Glucose 285 H Physical Exam Narrative Alert awake oriented x 3 no obvious distress no JVD s1s2 no murmurs lungs clear abdomen soft, Nontender no edema AV fistula left upper arm positive thrill and bruit Assessment & Plan Assessment/Plan (1) ESRD on hemodialysis: PLAN: - ESRD on HD at [facility] halfway 4 times a week, Friday/Friday//Friday schedule. Dialysis today if she is agreeable. Patient's home dialysis unit is [facility]. - anemia of chronic disease; underwent EGD: normal esophagus, chronic gastritis, biopsied. - Hypertensive crisis; Blood pressures have been improving.
--- NOTE | 2023-09-10 17:26 | NURSING ---
informed son of bed @ [facility] Bed [id number] , report called to [facility], physician ambulance here for transport
--- NOTE | 2023-09-10 18:22 | DS.PCM_ITS ---
Providers Date of Admission: 09/04/23 Date of Discharge: 09/11/23 Primary Care Physician: Dr. Jacky Morgan MD Consultations 09/04/23 22:50 Consult: Nephrology Routine Consulting Provider: Shu Ballesteros Reason for Consult: End-stage renal disease on hemodialysis EMERGENT Consult: No Notified: Yes Date Notified: 09/04/23 Time Notified: 06:41 Method of Notification: Answering Service 09/05/23 09:04 SOC [Consult: Tele-Neurology] Routine Consulting Provider: [facility] Reason for Consult: encephalopathy EMERGENT Consult: No MD Notified: Yes Date Notified: 09/05/23 Time Notified: 09:18 Method of Notification: ED Physician Initiated Nursing Unit Staff Notify [facility] of Tele-Neurology Consult: Yes 09/05/23 09:09 Consult: Gastroenterology Routine Consulting Provider: [facility] Reason for Consult: anemia EMERGENT Consult: No MD Notified: Yes Date Notified: 09/05/23 Time Notified: 09:09 Method of Notification: Text 09/06/23 10:52 Consult: Tele-Neurology Routine Consulting Provider: [facility] Reason for Consult: abnormal neurologic labs EMERGENT Consult: No Notified: Yes Date Notified: 09/06/23 Time Notified: 10:53 Method of Notification: Verbal Nursing Unit Staff Notify [facility] of Tele-Neurology Consult: Yes Reason For Visit: HYPERTENSIVE CRISIS, HYPERKALEMIA ABD HYPERTENSIVE Diagnosis Discharge Diagnosis (1) ESRD on hemodialysis: Status: Acute Code(s): N18.6 - End stage renal disease; Z99.2 - Dependence on renal dialysis Plan #Hypertensive encephalopathy * Resolved. * Amlodipine and carvedilol as well as lisinopril. IV hydralazine as needed and also on p.o. clonidine as needed. #Altered mental status * Has been having episodic altered mental status and is thought to be due to whether patient is on steroids or not. Workup so far has been negative apart from positive paraneoplastic workup. * Neurology reviewed patient and felt she could be considered for IVIG versus plasmapheresis in light of chronic immunosuppression and recommended that patient be transferred to [facility]. Accepted and awaiting transfer. * Currently on IV Solu-Medrol. * #Acute on chronic anemia: * Hemoglobin today is 8.3 She was transfused with one more unit of PRBC yesterday. * She had EGD during this admission which showed normal esophagus with chronic gastritis which was biopsied and mucosal changes in the duodenum which was also biopsied as well as a duodenal submucosal mass and melanosis duodenitis. * Recommendation was for patient to have endoscopic ultrasound with possible FNA of the submucosal mass in. * Per GI note, it did not look malignant endoscopically. * transfuse if Hb <7 * * #History of metastatic renal cell carcinoma: S/p right nephrectomy. Undergoing outpatient treatment with BCG. #Hypothyroidism: On Synthroid. #Hyperkalemia: K remains 5.3. For dialysis today. 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 Patient has been receiving BCG. QuantiFERON test is pending. #GERD: On PPI #ESRD: on HD. on dialysis MWF. Nephrology on board. #History of rheumatoid arthritis: Stable #DVT prophylaxis: Lovenox Disposition; awaiting transfer to [facility] pending bed availability Medications at Discharge Home Medications ascorbic acid (vitamin C) 1,000 mg tablet,extended release (Vitamin C ER) 1,000 mg PO DAILY supplement 06/13/22 bimatoprost 0.01 % eye drops (Lumigan) 1 drp EACH EYE QHS eye drop 06/13/22 carvedilol 12.5 mg tablet 12.5 mg PO BID BLOOD PRESSURE 06/13/22 famotidine 40 mg tablet 40 mg PO DAILY stomach 06/13/22 folic acid 1 mg tablet 1 mg PO DAILY supplement 06/13/22 levothyroxine 25 mcg tablet 25 mcg PO DAILY thryoid 06/13/22 multivitamin 1 tab PO DAILY supplement 06/13/22 doxazosin 2 mg tablet (Cardura) 2 mg PO BID 3 months #180 tabs 08/15/22 furosemide 40 mg tablet (Lasix) 60 mg PO BID water pill 08/15/22 icosapent ethyl 1 gram capsule (Vascepa) 2 g (2 x 1 gram) PO BID #180 caps 08/15/22 acetaminophen 325 mg capsule (Tylenol) 650 mg PO Q4H pain or fever 10/03/22 lidocaine 5 % topical patch 1 patch topical Q24H pain patch 01/30/23 gabapentin 100 mg capsule 200 mg (2 x 100 mg) PO DAILY PRN Neuropathy 3 months #90 caps 06/27/23 pantoprazole 40 mg tablet,delayed release 40 mg PO PRN Indigestion 06/30/23 nifedipine 60 mg tablet,extended release 60 mg PO BID BLOOD PRESSURE 07/16/23 amlodipine 10 mg tablet 10 mg PO DAILY blood pressure 07/22/23 acetaminophen 650 mg rectal suppository 650 mg CA Q4H PRN fever or pain 09/04/23 aluminum-magnesium hydroxide 225 mg-200 mg/5 mL oral suspension 30 ml PO Q4H 09/04/23 bisacodyl 10 mg rectal suppository 10 mg CA DAILY PRN constipation 09/04/23 cefdinir 300 mg capsule 300 mg PO BID 09/04/23 guaifenesin 100 mg/5 mL oral liquid 200 mg PO Q4H PRN cough 09/06/23 hydralazine 100 mg tablet 100 mg PO TID hypertension 09/06/23 latanoprost 0.005 % eye drops 1 drp EACH EYE QPM glaucoma 09/06/23 lisinopril 20 mg tablet 20 mg PO BID hypertension 09/06/23 lorazepam 0.5 mg tablet 0.5 mg PO DAILY PRN anxiety on dialysis day 09/06/23 melatonin 3 mg capsule 3 mg PO QHS sleep 09/06/23 polyethylene glycol 3350 17 gram oral powder packet 17 g PO DAILY PRN constipation 09/06/23 prednisone 10 mg tablet 10 mg PO DAILY RA 09/06/23 Hospital Course Operations None Procedures Dialysis Summary of Care Provided Minutes Spent on Discharge: 65 Hospital Course: Patient is an 82-year-old female with a past medical history as outlined who was admitted through the ED on 09/04/2023 with a complaint of abdominal pain, nausea and vomiting as well as confusion. Patient was on dialysis on Tuesdays and Saturdays in a shelter and had undergone only about a 2.5 session on the day of admission due to abdominal pain. She was admitted with a complaint of abdominal pain, nausea and vomiting as well as confusion. She was also noted to be more lethargic and confused and was refusing care. She denied any fever or chills, chest pain, shortness of breath or diarrhea or any other complaints. Blood pressure was markedly elevated at 231/72 so she was admitted and managed for hypertensive emergency. Her potassium was also markedly evaded at 5.7. She was admitted and managed for hypertensive emergency and placed in the ICU. She was started on nicardipine drip. She was given Kayexalate and nephrology was consulted in light of the hyperkalemia. She was eventually weaned off of the nicardipine drip and placed back on her home meds of amlodipine, carvedilol and lisinopril as well as p.o. clonidine as needed. Hospital course was complicated by persistent encephalopathy so neurology was consulted and felt patient could be considered for IVIG versus plasmapheresis in light of her chronic immunosuppression. Patient was started on IV Solu-Medrol. Hospital course was also complicated by acute on chronic anemia requiring transfusion of packed red blood cells. Gastroenterology was consulted and she had EGD which showed normal esophagus with chronic gastritis which was biopsied as well as mucosal changes in the duodenum which was also biopsied and duodenal submucosal mass and melanosis duodenitis. Gastroenterology did not biopsy the duodenal submucosal mass and recommended endoscopic ultrasound with possible FNA of the submucosal mass. She did receive dialysis during this admission. She eventually got a bed at [facility] on 09/10/2023. She was therefore transferred to [facility] on 09/10/2023. Patient was seen and examined on the morning of day of discharge. She had no active complaints and had an uneventful night. Review of systems is otherwise negative. Labs and vitals reviewed. Physical Exam Const alert, oriented x3, no apparent distress and well nourished Constitutional Narrative: frail General Appearance: cooperative and well developed HEENT normocephalic, head/scalp atraumatic, moist oral mucous membranes and oropharynx normal Eyes PERRL and EOMs intact bilaterally Neck no lymphadenopathy and supple Lymph Lymphatic: no lymphadenopathy noted and no lymphedema noted Resp normal respiratory effort, normal air movement and clear to auscultation bilaterally Cardio regular rate, regular rhythm, S1 normal heart sound, S2 normal heart sound and no murmurs Cardio Narrative: GI normal to inspection, nondistended, normoactive bowel sounds and soft to palpation Extremity normal capillary refill, no clubbing, cyanosis or edema and no calf tenderness General Extremity: no tenderness to palpation of joints or extremities Skin Skin Narrative: Patient has no evidence of jaundice or rash. General Skin Exam: no breakdown Neuro CN's II-XII intact bilaterally, no focal motor deficits, no sensory deficits noted and deep tendon reflexes 2+ bilaterally Sensorium / Orientation: awake, alert, oriented to person and oriented to place Motor Exam: general weakness Psych thought process normal, cooperative and affect normal Appearance: appropriate Weight / BMI Weight Weight: 100 lb 4.965 oz Body Mass Index (BMI) 19.7 ABG / Lab / Microbiology Data 09/10/23 07:40 09/10/23 07:40 Laboratory: Laboratory Results - last 24 hr 09/07/23 10:20: TB Test (QFT) Nil 0.04, TB Test (QFT) Mitogen > 10.00, TB Test (QFT) Ag 1 0.11, TB Test (QFT) Ag 2 0.14, TB Test (QFT) Comment, TB Positive Criteria Negative 09/09/23 17:25: Blood Type O POSITIVE, Antibody Screen NEGATIVE, Crossmatch See Detail 09/10/23 07:40: WBC 11.0, RBC 2.71 L, Hgb 8.3 L, Hct 24.7 L, MCV 91.1 D, MCH 30.6, MCHC 33.6, RDW Std Deviation 53.5 H, RDW Coeff of Wiliam 16.1 H, Plt Count 115 L, MPV 11.2, Immature Gran % (Auto) 2.500 H, Neut % (Auto) 88.2 H, Lymph % (Auto) 6.8 L, [place] % (Auto) 2.4, Eos % (Auto) 0.0, Baso % (Auto) 0.1, Absolute Neuts (auto) 9.7 H, Absolute Lymphs (auto) 0.75 L, Nucleated RBC % 0, Sodium 130 L, Potassium 5.3 H, Chloride 99, Carbon Dioxide 23.0, Anion Gap 8, BUN 65 H, C reatinine 4.94 H, Estim Creat Clear Calc 6.20, Est GFR (MDRD) Af Amer 11 L, Est GFR (MDRD) Non-Af 9 L, BUN/Creatinine Ratio 13.2, Glucose 207 H, Calcium 9.1 09/10/23 11:12: POC Glucose 285 H Meaningful Use Info Meaningful Use Meaningful Use Diagnoses (Choose all that apply): None applicable Ischemic Stroke Statin Dosing Therapy Reference: STATIN DOSE THERAPY REFERENCE: * Patients > 75 years receive moderate or high dose statin therapy. * Patients 75 years or YOUNGER should receive HIGH intensity statin dose unless contraindicated. You will be required to document reason for non-treatment if statin daily dose does not meet guidelines. HIGH DOSE STATIN THERAPY DAILY Atorvastatin > than or = to 40 mg Rosuvastatin > than or = to 20 mg Amlodipine + Atorvastatin > than or = to 2.5/40 mg Ezetimibe + Simvastatin 10/80 mg Simvastatin 80mg Discharge Plan Admission Admit Date/Time: 09/04/23 22:09 Primary Reason for Your Visit: Confusion/abdominal pain Attending Provider: Maria Del Rosario Cooper Primary Care Provider: Jacky Morgan Consulting Providers: Shu Ballesteros; Philippe Grant; Lamin Smith; Francesca Kuhn; Priti Harden; Sherita Freitas; Staci Duron; Kimani Milligan; Emma Orellana; Thompson Belle; Chito Gallegos; Melly Sandoval; Surya Borrero; Aleshia Martinez; Linda Celestin; Lauren Post; Chalino Kim; Zion Byers; Todd Dougherty; Ariane Csaas; Maria Elena Regan; Kelli Casas Discharge Orders/Prescriptions Prescriptions: No Action icosapent ethyl [Vascepa] 1 gram capsule 2 g PO BID Qty: 180 3RF doxazosin [Cardura] 2 mg tablet 2 mg PO BID 90 Days Qty: 180 3RF lidocaine 5 % adhesive patch,medicated 1 patch topical Q24H Patient Comments: apply 1 patch to affected area daily multivitamin Tablet 1 tab PO DAILY carvedilol 12.5 mg Tablet 12.5 mg PO BID Rx Instructions: must administer with a meal/food famotidine 40 mg Tablet 40 mg PO DAILY Vitamin C 1,000 mg Tablet Extended Release 1,000 mg PO DAILY levothyroxine 25 mcg Tablet 25 mcg PO DAILY folic acid 1 mg Tablet 1 mg PO DAILY Lumigan 0.01 % Drops 1 drp EACH EYE QHS pantoprazole 40 mg tablet,delayed release (DR/EC) 40 mg PO PRN furosemide [Lasix] 40 mg tablet 60 mg PO BID acetaminophen [Tylenol] 325 mg Capsule 650 mg PO Q4H nifedipine 60 mg tablet extended release 60 mg PO BID amlodipine 10 mg tablet 10 mg PO DAILY acetaminophen 650 mg suppository 650 mg CA Q4H PRN (Reason: fever or pain) aluminum-magnesium hydroxide 225-200 mg/5 mL suspension 30 ml PO Q4H bisacodyl 10 mg suppository 10 mg CA DAILY PRN (Reason: constipation) cefdinir 300 mg capsule 300 mg PO BID lisinopril 20 mg tablet 20 mg PO BID hydralazine 100 mg tablet 100 mg PO TID guaifenesin 100 mg/5 mL liquid 200 mg PO Q4H PRN (Reason: cough) lorazepam 0.5 mg tablet 0.5 mg PO DAILY PRN (Reason: anxiety on dialysis day) latanoprost 0.005 % drops 1 drp EACH EYE QPM melatonin 3 mg capsule 3 mg PO QHS polyethylene glycol 3350 17 gram powder in packet 17 g PO DAILY PRN (Reason: constipation) prednisone 10 mg tablet 10 mg PO DAILY gabapentin 100 mg capsule 200 mg PO DAILY PRN (Reason: Neuropathy) 90 Days Qty: 90 1RF Rx Instructions: Daily Prn Referrals / Follow Up: Jacky Morgan MD [Primary Care Provider] - Disposition Disposition (needs filled in before D/C Order can be placed): Acute Care Hospital Charges/Coding Visit Charges Inpatient E&M: 75035 Disch Hosp >30min
== END 2023-09-10 17:38 | disposition short-term general hospital (02) | DRG 304 ==
LOC: ED 21:44 → ICU 22:53
PROVIDERS: Internal Medicine; Internal Medicine Gastroenterology; Physician Assistant; Admitting Provider Internal Medicine; Emergency Provider Emergency Medicine; PCP Internal Medicine; Visit Provider Student in an Organized Health Care Education/Training Program
PROC: 0DJ08ZZ Inspection of Upper Intestinal Tract, Via Natural or Artificial Opening Endoscopic (ICD-10-PCS; CPT 43235; principal; 2023-09-08 11:10)
DX: I16.9 Hypertensive crisis, unspecified (principal); N18.6 End stage renal disease; I67.4 Hypertensive encephalopathy; E44.1 Mild protein-calorie malnutrition; E87.1 Hypo-osmolality and hyponatremia; I50.32 Chronic diastolic (congestive) heart failure; D63.8 Anemia in other chronic diseases classified elsewhere; E11.22 Type 2 diabetes mellitus with diabetic chronic kidney disease; I13.2 Hypertensive heart and chronic kidney disease with heart failure and with stage 5 chronic kidney disease, or end stage renal disease; E11.39 Type 2 diabetes mellitus with other diabetic ophthalmic complication; M06.9 Rheumatoid arthritis, unspecified; E03.9 Hypothyroidism, unspecified; Z99.2 Dependence on renal dialysis; M48.061 Spinal stenosis, lumbar region without neurogenic claudication; H35.30 Unspecified macular degeneration; M19.90 Unspecified osteoarthritis, unspecified site; E78.5 Hyperlipidemia, unspecified; E87.5 Hyperkalemia; K21.9 Gastro-esophageal reflux disease without esophagitis; K29.50 Unspecified chronic gastritis without bleeding; H40.9 Unspecified glaucoma; Z82.62 Family history of osteoporosis; Z79.52 Long term (current) use of systemic steroids; Z91.158 Patient's noncompliance with renal dialysis for other reason; R76.11 Nonspecific reaction to tuberculin skin test without active tuberculosis; Z79.01 Long term (current) use of anticoagulants; Z90.5 Acquired absence of kidney; Z09 Encounter for follow-up examination after completed treatment for conditions other than malignant neoplasm; Z87.01 Personal history of pneumonia (recurrent); Z85.528 Personal history of other malignant neoplasm of kidney; Z68.21 Body mass index [BMI] 21.0-21.9, adult
CPT/HCPCS: 36415; 71046; 71260; 74176; 80048; 80053; 80061; 81001; 82607; 82746; 82962; 83036; 83540; 83550; 83690; 83735; 84100; 84132; 84134; 84443; 85014; 85018; 85025; 85027; 86480; 86850; 86900; 86901; 86920; 86922; 88305; 88313; 88342; 90937; 93005; 94640; 97802; 99284; J7030; J7040; J7050; P9016; Q9967; A4216; G0257; J1940; J2405; Q5106

== ENCOUNTER → 2023-09-19 05:55 | Outpatient (REF) | payer MEDICARE, OTHER, SELFPAY ==
[2023-09-19 09:21] LABS: Hematocrit 25.3 % (37-47); Hemoglobin 7.8 g/dL (12.0-15.0); Mean Corp Hgb Conc 30.8 g/dL (32-36); Mean Corpuscular Hgb 30.6 pg (27.0-32.0); Mean Corpuscular Volume 99.2 fL (81-99); Mean Platelet Vol. 12.5 fl (6.2-12.0); POSITIVE COUNT YES; POSITIVE MORPHOLOGY YES; Platelet Count 79 K/mm3 (150-450); RBC Distribution Width CV 17.9 % (11.6-14.6); RBC Distribution Width SD 61.6 fl (35.1-43.9); Red Blood Count 2.55 M/mm3 (4.2-5.4); White Blood Count 7.5 K/mm3 (4.4-11.0)
[2023-09-19 09:28] LABS: Differential Indicated MANUAL DIFF
[2023-09-19 09:53] LABS: ALB/GLOB Ratio 0.8 RATIO (0.9-2.4); AST(SGOT) 14 U/L (15-37); Alanine Aminotransfer ALT/SGPT 15 U/L (13-56); Alkaline Phosphatase 52 U/L (45-117); Anion Gap 6 (5-15); BUN 40 mg/dL (7-18); BUN/Creat Ratio 10.2 RATIO (10-20); Calcium,Total 8.3 mg/dL (8.5-10.1); Chloride 103 mmol/L (98-107); Cholesterol 211 mg/dL (200); Creatinine, Serum 3.91 mg/dL (0.55-1.02); EST Glomerular Filtration Rate 12 mL/min (>60); Est Glom Filt Rate - Afr Amer 14 mL/min (>60); Globulin 2.4 g/dL (2.2-4.2); Glucose 145 mg/dL (74-106); High Density Lipoprotein 40 mg/dL; Magnesium 1.8 mg/dL (1.6-2.6); Potassium 4.3 mmol/L (3.5-5.1); Protein, Total 4.4 g/dL (6.4-8.2); Sodium Level 135 mmol/L (136-145); Thyroid Stim Hormone (TSH) 4.59 uIU/mL (0.358-3.74); Triglycerides 331 mg/dL; Very Low Density Lipoprotein 66 mg/dL (5-40)
[2023-09-19 10:45] LABS: Eosinophil 3 % (0-5); Lymphocyte 18 % (19-41); Monocyte 1 % (0-10); Neutrophil-Band 2 % (0-5); Neutrophil-Segmented 76 % (47-70); Nucleated Red Bld Cells,Manual 1 % (0-5); Total Cells Counted 100 (MANUAL DIFF)
[2023-09-19 10:52] LABS: Red Cell Morphology NORM C+C NORMAL (NORM C&C)
[2023-09-19 11:15] LABS: Absolute Neutrophil Count 5.9 X10^3/uL (2.0-7.7)
[2023-09-19 11:16] LABS: Absolute Lymphocyte Count 1.35 X10^3/uL (0.83-4.51); Platelet Estimate MOD DEC (ADEQ)
[2023-09-19 14:40] LABS: Vitamin B12 845 pg/mL (211-911); Vitamin D,25 Hydroxy 30.8 ng/mL
[2023-09-23 14:43] LABS: Pathologist Review Reviewed
== END ==
LOC: OLS.SW 05:55
PROVIDERS: PCP Internal Medicine; Visit Provider Internal Medicine
DX: G93.40 Encephalopathy, unspecified (principal); M35.00 Sjogren syndrome, unspecified; I13.2 Hypertensive heart and chronic kidney disease with heart failure and with stage 5 chronic kidney disease, or end stage renal disease; M06.9 Rheumatoid arthritis, unspecified; N18.6 End stage renal disease; E46 Unspecified protein-calorie malnutrition; Z85.51 Personal history of malignant neoplasm of bladder; Z99.2 Dependence on renal dialysis; I50.9 Heart failure, unspecified
CPT/HCPCS: 36415; 80053; 80061; 82306; 82607; 83735; 84443; 85025

== ENCOUNTER → 2023-10-03 | Outpatient (CLI) | payer MEDICARE, OTHER, SELFPAY ==
--- NOTE | 2023-10-03 16:02 | RAD_ITS ---
EXAM: XR RIGHT HUMERUS, 2 OR MORE VIEWS CLINICAL INDICATION: fall, right arm pain TECHNIQUE: Frontal and lateral views of the right humerus. COMPARISON: No relevant prior studies available. FINDINGS: BONES/JOINTS: Acute fracture of the distal portion of the right clavicle. Numerous is intact. SOFT TISSUES: Soft tissue calcification adjacent to the greater tubercle consistent with calcific tendinitis. No soft tissue swelling or gas. No radiopaque foreign body. RAD/Humerus min 2 Views IMPRESSION: Right clavicular fracture. Intact humerus. Electronically Signed: Dov Sebastian MD at 10:49 EDT ,
--- NOTE | 2023-10-03 16:02 | RAD_ITS ---
INDICATION: dyspnea EXAMINATION/TECHNIQUE: X-RAY - XR Chest 2 Views COMPARISON: Prior study dated: 09/04/2023 FINDINGS: LINES/DEVICES: None. LUNGS: [Atelectatic changes in the left lung base. Small left pleural effusion new since previous exam. MEDIASTINUM AND CARDIOVASCULAR STRUCTURES: Cardiac silhouette not enlarged. Central airways and mediastinal contour are unremarkable. BONES AND SOFT TISSUES: No demonstrated acute osseous changes. RAD/Chest PA and Lateral IMPRESSION: New atelectatic changes in the left lung base and small left pleural effusion. Electronically Signed: Bryan Portillo MD at 11:55 EDT ,
--- NOTE | 2023-10-03 16:02 | RAD_ITS ---
EXAM: XR RIGHT FOREARM, 2 VIEWS CLINICAL INDICATION: fall, right arm pain TECHNIQUE: Frontal and lateral views of the right forearm. COMPARISON: No relevant prior studies available. FINDINGS: BONES/JOINTS: Diffuse mild demineralization. Mild degenerative changes at the ventral elbow joint. No acute fracture. No dislocation. SOFT TISSUES: Mild dorsal soft tissue swelling at the proximal forearm and wrist on the lateral view. RAD/Forearm 2 Views IMPRESSION: Mild multilevel soft tissue swelling. Electronically Signed: Rosy Saleh MD at 7:48 EDT ,
--- NOTE | 2023-10-03 16:02 | RAD_ITS ---
EXAM: XR RIGHT SHOULDER COMPLETE, 4 VIEWS CLINICAL INDICATION: fall, right shoulder pain TECHNIQUE: 4 views of the right shoulder. COMPARISON: Chest radiograph September 04, 2023 distal right clavicle offset chest CT September 06, 2023. Not fully included the shoulder or distal clavicle. FINDINGS: BONES/JOINTS: Demineralization. Mildly displaced fracture of the distal third of the right clavicle with roughly 6 mm displacement, suggestion of some resorption of margins and slight callus, uncertain chronicity but not seen 4 acute fracture. The acromioclavicular joint appears intact. There is thick calcification and what appears to be rotator cuff deep to the acromium downsloping inferior margin of the acromion. Osteophytes at the inferior-medial right humeral head best seen on the frontal view. Intact visualized right ribs. SOFT TISSUES: Unremarkable. No soft tissue swelling or gas. No radiopaque foreign body. RAD/Shoulder min 2 Views IMPRESSION: Offset at the distal right clavicle with fracture of uncertain age, suspected to be present September 04, 2023 but not as well seen. Demineralization. No shoulder dislocation. Amorphous calcification in the subacromial region, likely due to tendinosis. Electronically Signed: Rosy Saleh MD at 4:15 EDT ,
== END | disposition home or self-care (01) ==
LOC: MTRAD 15:54
PROVIDERS: PCP Internal Medicine; Referring Provider Nurse Practitioner; Visit Provider Nurse Practitioner
DX: R06.00 Dyspnea, unspecified (principal); M25.511 Pain in right shoulder; W19.XXXA Unspecified fall, initial encounter
CPT/HCPCS: 71046; 73030; 73060; 73090

== ENCOUNTER 2023-10-17 10:14 | Outpatient (CLI) | payer MEDICARE, OTHER, SELFPAY ==
[2023-10-17] VITALS (7 sets, daily range): BP systolic 137–188; BP diastolic 52–66; PULSE 79–95; RESP 16; TEMP 35.9–36.4; O2SAT 98–100; BMI 17.9
== END 2023-10-17 23:59 | disposition home or self-care (01) ==
LOC: MEDOUTP 10:14
PROVIDERS: PCP Internal Medicine; Visit Provider Internal Medicine Nephrology
DX: D64.9 Anemia, unspecified (principal)
CPT/HCPCS: 36415; 36430; 86850; 86900; 86901; 86920; 86922; J7040; P9016; A4216

== ENCOUNTER → 2023-10-31 | Outpatient (CLI) | payer MEDICARE, OTHER, SELFPAY ==
[2023-10-31 10:08] LABS: Hematocrit 34.8 % (37-47); Hemoglobin 11.2 g/dL (12.0-15.0)
== END | disposition home or self-care (01) ==
PROVIDERS: PCP Internal Medicine; Referring Provider Internal Medicine Nephrology; Visit Provider Internal Medicine Nephrology
DX: R31.9 Hematuria, unspecified (principal); D64.9 Anemia, unspecified
CPT/HCPCS: 85014; 85018

== ENCOUNTER → 2023-11-07 | Outpatient (CLI) | payer MEDICARE, OTHER, SELFPAY ==
[2023-11-07 15:07] LABS: Absolute Lymphocyte Count 2.17 X10^3/uL (0.83-4.51); Basophil# 0.03 X10^3/uL; Basophil% 0.5 % (0-1); Eosinophil# 0.12 X10^3/uL; Hematocrit 39.4 % (37-47); Hemoglobin 12.5 g/dL (12.0-15.0); Lymphocyte # 2.17 X10^3/ul (0.83-4.51); Mean Corp Hgb Conc 31.7 g/dL (32-36); Mean Corpuscular Hgb 31.3 pg (27.0-32.0); Mean Corpuscular Volume 98.5 fL (81-99); Mean Platelet Vol. 11.9 fl (6.2-12.0); Monocyte# 0.47 X10^3/uL; NRBC Flagged by Analyzer 0 % (0-5); Neutrophil # 3.02 X10^3/uL (2.7-7.7); Neutrophil % 51.6 % (47-70); POSITIVE MORPHOLOGY YES; Platelet Count 144 K/mm3 (150-450); RBC Distribution Width CV 18.3 % (11.6-14.6); White Blood Count 5.9 K/mm3 (4.4-11.0)
[2023-11-07 15:38] LABS: Differential Indicated SCAN CRITERIA MET
[2023-11-07 15:47] LABS: ALB/GLOB Ratio 0.9 RATIO (0.9-2.4); AST(SGOT) 20 U/L (15-37); Alanine Aminotransfer ALT/SGPT 10 U/L (13-56); Albumin, Serum 2.8 g/dL (3.2-5.0); Alkaline Phosphatase 77 U/L (45-117); Anion Gap 9 (5-15); BUN 18 mg/dL (7-18); BUN/Creat Ratio 7.9 RATIO (10-20); Calcium,Total 9.2 mg/dL (8.5-10.1); Chloride 97 mmol/L (98-107); Creatinine, Serum 2.28 mg/dL (0.55-1.02); EST Glomerular Filtration Rate 22 mL/min (>60); Est Glom Filt Rate - Afr Amer 26 mL/min (>60); Globulin 3.1 g/dL (2.2-4.2); Glucose 139 mg/dL (74-106); Potassium 3.5 mmol/L (3.5-5.1); Protein, Total 5.9 g/dL (6.4-8.2); Sodium Level 136 mmol/L (136-145); Thyroid Stim Hormone (TSH) 4.16 uIU/mL (0.358-3.74)
[2023-11-07 15:59] LABS: Differential Comment SCANNED
== END | disposition home or self-care (01) ==
LOC: BIMLAB 11:33
PROVIDERS: PCP Internal Medicine; Referring Provider Internal Medicine; Visit Provider Internal Medicine
DX: D64.9 Anemia, unspecified (principal); E03.9 Hypothyroidism, unspecified
CPT/HCPCS: 36415; 80053; 84443; 85025

== ENCOUNTER 2023-12-12 10:30 | Outpatient (CLI) | payer MEDICARE, OTHER, SELFPAY ==
--- NOTE | 2023-12-12 09:12 | SUR.PREOP ---
Patient's blood pressure is elevated at 229/67. Dr Stout and Dr. Soliman would like to cancel. Dr Soliman is going to talk to the patient when he comes out of OR.
--- NOTE | 2023-12-12 09:27 | SUR.PREOP ---
PATIENT REQUESTED REPEAT BLOOD PRESSURE. IT IS 232/68. I SPOKE TO HER SON DIYA AND TOLD HIM THAT THEY ARE NOT DOING HER SURGERY TODAY D/T HER BLOOD PRESSURE. SHE IS SUPPOSED TO BE DIALYZED TODAY SO I TOLD HER SON TO SEE IF SHE CAN GET IN TODAY THIS IS HER REGULAR DIALYSIS DAY.
--- NOTE | 2023-12-12 09:58 | SUR.PREOP ---
DR. JASON SPOKE TO THE PATIENT AND HER SON.
== END 2023-12-12 23:00 | disposition home or self-care (01) ==
LOC: SDC 06-30 21:28
PROVIDERS: PCP Internal Medicine; Referring Provider Urology; Visit Provider Urology
DX: Z00.00 Encounter for general adult medical examination without abnormal findings (principal)
CPT/HCPCS: J9280

== ENCOUNTER 2024-01-14 18:13 | Inpatient (IN) | payer MEDICARE, OTHER, SELFPAY ==
[2024-01-14] VITALS (18 sets, daily range): BP systolic 59–180; BP diastolic 42–76; PULSE 56–90; RESP 16–21; TEMP 35.3–36.4; O2SAT 96–100; BMI 19.3; BMI 20.6
[2024-01-14] MEDS: 0.9% Normal Saline (500mL Bag) 500 ML 15 ML IV (14:12)
--- NOTE | 2024-01-14 14:13 | PCM.PRE.AN2 ---
ASA Classification* ASA Classification ASA Classification: 3 Assessment & Plan Anesthesia* Anesthesia Assessment Anesthesia Assessment: Discussed sedation and/or anesthesia options, risks, benefits, and alternatives with patient/parents/legal guardian/POA. Questions invited. The patient/parents/legal guardian/POA seems to understand and agrees to proceed with anesthesia plan. Reviewed the physical assessment, medical history, allergy history and patient home medications list prior to surgery/procedure/anesthetic and documented any changes. Performed airway and anesthesia risk assessments. Anesthesia Type Anesthesia Type: General (see written pre anesthesia record for full assessment) Anesthesia Focused Assessment* Temperature: 97.2 F Pulse Rate: 63 Blood Pressure: 180/72 Respiratory Rate: 18 Pulse Ox: 99 Airway Assessment Mouth opens: >3 cm Mallampati Score: II Focused Labs Anesthesia Preop lab: CBC WBC 5.9 K/mm3 (4.4-11.0) 11/07/23 11:30 RBC 4.00 M/mm3 (4.2-5.4) L 11/07/23 11:30 Hgb 12.5 g/dL (12.0-15.0) 11/07/23 11:30 Hct 39.4 % (37-47) 11/07/23 11:30 Plt Count 144 K/mm3 (150-450) L 11/07/23 11:30 CHEMISTRY Potassium 3.5 mmol/L (3.5-5.1) 11/07/23 11:30 Sodium 136 mmol/L (136-145) 11/07/23 11:30 Magnesium 1.8 mg/dL (1.6-2.6) 09/19/23 05:55 Phosphorus 4.6 mg/dL (2.5-4.9) 09/05/23 03:05 BUN 18 mg/dL (7-18) 11/07/23 11:30 Creatinine 2.28 mg/dL (0.55-1.02) H 11/07/23 11:30 Glucose 139 mg/dL (74-106) H 11/07/23 11:30 POC Glucose 285 mg/dL (74-106) H 09/10/23 11:12 TSH 4.16 uIU/mL (0.358-3.74) H 11/07/23 11:30 COAG PT 13.7 SECONDS (11.7-14.9) 08/04/23 12:32 Pre-Assessment Diagnosis/Proposed Procedure Planned Operative Procedure(s): [facility] History Anesthesia History - hand or machine paster: Anesthesia History - hand or machine paster Hx Hospitalization Yes: ALTERED MENTAL STATE 12/31/23 08:18 2024 Any Problems With Anesthesia No 12/31/23 08:18 Cholinesterase deficiency No 12/31/23 08:18 You/Your Family Experience No 12/31/23 08:18 fever (hyperthermia) with Relationship Recent Exposure to Contagious No 01/14/24 13:52 Disease Does patient have nerve No 12/31/23 08:18 stimulator Patient instructed to have device shut off --Does patient have Pacemaker No 01/14/24 13:52 or ICD? When Was Last Pacemaker Check QUESTION #4 FULL TEXT: You/Your Family Experience fever (hyperthermia) with Anesthesia Last Oral Intake Last Oral intake: Last Oral Intake NPO since 11:00 01/14/24 13:52 Meds taken in AM with sips of Yes 01/14/24 13:52 water? Meds patient instructed to see medlist 01/14/24 13:52 take am of surgery PONV PONV - hand or machine paster: PONV - hand or machine paster Female Yes 12/31/23 08:18 HX of Motion Sickness No 12/31/23 08:18 HX of N/V After Surgery No 12/31/23 08:18 Non-Smoker Yes 12/31/23 08:18 Duration of Surgery greater Yes 12/31/23 08:18 than 60 minutes Number of Risk Factors 3 12/31/23 08:18 PONV Score Moderate Risk 12/31/23 08:18 Height & Weight Height & Weight: Anesthesia: Height & Weight Height 5 ft 01/14/24 13:52 Weight: 45 kg 01/14/24 13:52 Body Mass Index (BMI) 19.3 01/14/24 13:52 Respiratory Assessment Respiratory Assessment - hand or machine paster: Respiratory Tract Infection Hx - hand or machine paster Hx Respiratory Tract Infection No 12/31/23 08:18 STOP Sleep Apnea STOP Sleep Apnea - hand or machine paster: STOP Sleep Apnea - hand or machine paster Hx Hypertension Yes: CONTROLLED WITH MED 12/31/23 08:18 Hx Sleep Apnea No 12/31/23 08:18 CPAP BIPAP Do you snore loudly (louder No 12/31/23 08:18 than talking or can be heard Do you often feel tired/ No 12/31/23 08:18 fatigued/ sleepy during daytime? Has anyone observed you stop No 12/31/23 08:18 breathing during sleep? STOP Results Negative 12/31/23 08:18 QUESTION #5 FULL TEXT : Do you snore loudly (louder than talking or can be heard through closed doors)? 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 Specify any problems Hx of Preganancy in last 3 No 12/31/23 08:18 Months Nurse Filling Out Transfusion VCHRISTIN 12/31/23 08:18 & Questions: Date: 12/31/23 12/31/23 08:18 Time: 08:19 12/31/23 08:18 Patient unable to answer at this time (ie. confused, unrespo /Reproduction History /Reproductive History - hand or machine paster: /Reproductive Hx- hand or machine paster Hx Now Gestational Age (in weeks): EDC: Hx Hx Para Hx Section SAB No 12/31/23 08:18 Active Medications Active Medications: Current Medications Generic Name Dose Route Start Last Admin Trade Name Freq PRN Reason Stop Dose Admin Sodium Chloride 500 mls @ 0 mls/hr 01/14/24 13:45 01/14/24 14:12 IV 15 mls/hr .Q0M HOWARD Administration KVO PFSH Medical History History of echocardiogram Wears glasses Post-menopausal Cancer Anxiety History of steroid therapy Walker as ambulation aid Low iron High cholesterol Injury of head and neck Syncope Falls Non-smoker ESRD on dialysis Heart murmur Mitral regurgitation Hypothyroidism Vertigo Cardiomyopathy Sjogren syndrome with inflammatory arthritis Arthritis Hyperlipidemia Type 2 diabetes mellitus CKD (chronic kidney disease) stage 5, GFR less than 15 ml/min Bilateral lower extremity edema Macular degeneration Lumbar spinal stenosis Glaucoma Heart failure Osteoporosis Thyroid disease Gastric reflux Hypertension Hx of fracture of wrist Rheumatoid arthritis Kidney failure Cancer Anemia Home Medications ?Medication ?Instructions ?Recorded ?Last Taken ?Type levothyroxine 25 mcg tablet 25 mcg PO DAILY thryoid 06/13/22 01/14/24 History nifedipine 60 mg tablet,extended 60 mg PO BID BLOOD PRESSURE 07/16/23 01/14/24 History release latanoprost 0.005 % eye drops 1 drp EACH EYE QPM glaucoma 09/06/23 Unknown History lisinopril 20 mg tablet 20 mg PO BID hypertension 09/06/23 01/14/24 History atorvastatin 10 mg tablet 10 mg PO DAILY #90 tabs 11/07/23 Unknown Rx clonidine HCl 0.1 mg tablet 0.1 mg PO Q6H PRN hypertensive 11/07/23 Unknown History emergency hydralazine 100 mg tablet 100 mg PO Q8H hypertension 11/07/23 01/14/24 History mirtazapine 7.5 mg tablet 7.5 mg PO QHS 11/07/23 Unknown History pantoprazole 40 mg tablet,delayed 40 mg PO BID 11/07/23 Unknown History release clonidine 0.1 mg/24 hr weekly 1 patch transdermal ROLON 12/09/23 Unknown History transdermal patch carvedilol 25 mg tablet 50 mg PO BID 12/31/23 01/14/24 History Allergy/AdvReac Type Severity Reaction Status Date / Time beef derived (bovine) Allergy Unknown PT UNABLE Verified 01/14/24 13:50 TO RESPOND-NEEDS F/U Pork/Porcine Containing Allergy Unknown PT UNABLE Verified 01/14/24 13:50 Products TO RESPOND-NEEDS F/U adalimumab (From Humira) Allergy Hives Verified 01/14/24 13:50 Family History Mother Heart disease Hypertension Osteoporosis Father CVA (cerebral vascular accident) Hypertension Surgical History History of surgery Hx of esophagogastroduodenoscopy H/O transurethral resection of bladder tumor (TURBT) Hx of colonoscopy S/P total knee arthroplasty S/P vein stripping S/P partial hysterectomy History of bladder surgery History of nephrectomy Social History household members: family Smoking Status: Never smoker alcohol intake: never substance use type: does not use Review of Systems (Anesthesia) ROS Narrative System reviewed and no additional complaints, except as documented.
--- NOTE | 2024-01-14 14:30 | BLB_PTH ---
PATIENT: MONA ESTRELLA LOC: MS3 U#:[id number] AGE/SX: 83/F ROOM: [facility] [place] RE01/14/[address]: Dr. Dusty Soliman MD : [id number] BED: 1 DIS: 01/26/2024 SPEC #: [id number] RECD: 01/15/24 08:17 STATUS: ANOOP GONZALEZ #: [id number] ISSAC: 01/14/24 14:[address]: Dusty Soliman DEPT: SURGICAL PATHOLOGY RECD BY: Navdeep Salazar ENTERED: 01/15/24 10:22 SP TYPE: TURB OTHR DR: MD Dr. Travon Velez DO Dr. Efewongbe Oleghe, MD Dr. Loren Kirchner, MD Dr. Natthavat Tanphaichitr, MD Barbara Tickton, AERIAL CROP DUSTER-C Yazmin Mckeon, AERIAL CROP DUSTER-C ALEM Mccarty PA Rachael McGoron, PA Tissues: Urinary bladder, NOS Procedures: Surgery Specimen Level V HEADER OPERATION: Transurethral resection bladder tumor PRE-OP DIAGNOSIS: Bladder cancer TISSUE SUBMITTED: Bladder mass tissue MICROSCOPIC DIAGNOSIS Bladder tumor, transurethral resection: Papillary urothelial carcinoma, invasive. See cancer summary in the comment section. 01/16/2024 COMMENT BLADDER CANCER (TUR) SUMMARY Procedure: Transurethral resection of bladder tumor (TURBT) Tumor site: Not specified Histologic type: Papillary urothelial carcinoma, invasive with focal squamous differentiation Percentage of squamous differentiation: <5% Associated epithelial lesions: None identified Histologic grade: Urothelial carcinoma high grade (3/3) Squamous cell carcinoma: Grade 1, well differentiated Tumor configuration: Papillary Muscularis propria presence: A minute focus of muscularis propria (detrusor muscle) is present and free of tumor Lymphvascular invasion: Not identified Tumor extension: Tumor invades the lamina propria (subepithelial connective tissue). Associated pathologic findings: Chronic inflammation and focal non-necrotizing granuloma formation, consistent with previous therapy related changes PATHOLOGIC STAGE: pT1 pNx pMx The above summary is in compliance with [employer] [place] Path[employer] (CAP) Cancer Protocols Checklist and [place] Joint Committee on Cancer (AJCC), Staging Manual, 8th Ed. Case has been reviewed in consultation with Dr. Schmitt who concurs with the above diagnosis. IDC:AM MICROSCOPIC DESCRIPTION Slides are reviewed. GROSS DESCRIPTION Received in fixative is one container labeled with the patient's name and designated Bladder mass tissue. The specimen consists of multiple fragments of montes-brown soft tissue mixed with blood clot measuring in aggregate 10.0 x 10.0 x 3.0cm. Kids Activities Coach tissue is submitted in twelve cassette. 01/15/2024 TC:0 CPT:58183
--- NOTE | 2024-01-14 14:35 | PCM.POST.ANE ---
Anesthesia: Postop Eval I Current Vital Signs Temperature: 97.6 F Pulse Rate: 90 Blood Pressure: 115/76 Respiratory Rate: 16 Pulse Ox: 96 Oxygen Delivery Method: Room Air Assessment Airway patent: Yes Spontaneous unlabored respirations: Yes Mental status: Awake and Calm nausea: No Vomiting: No Anesthesia Complication: No Fluid Hydration Crystalloid volume administer (ml): 500 Total IV fluid infused: 500 Progress Note Anesthesia document: Postop Eval 1 completed: Yes
[2024-01-14] MEDS: Cefazolin 2 GM in 0.9% Normal Saline (100mL Bag) 100 ML IV (14:52)
--- NOTE | 2024-01-14 15:01 | PCM.HP.STD ---
HPI - General General Date of Admission: 01/14/24 Chief Complaint: Bladder cancer HPI Narrative MONA ESTRELLA, is a 83 F who presents for resection of bladder cancer apparently she had been treated for bladder cancer at the [facility] and BCG therapy was recommended she did not tolerate the BCG therapy so we abandon doing that treatment she then came back with bleeding so in the office cystoscopy was down and it demonstrated us is significant amount of tumors within her bladder so today working to do a transurethral resection of multiple bladder tumors instillation Mitomycin-C apply continuous bladder irrigation should be admitted to hospital postop. [facility] Medical History History of echocardiogram Wears glasses Post-menopausal Cancer Anxiety History of steroid therapy Walker as ambulation aid Low iron High cholesterol Injury of head and neck Syncope Falls Non-smoker ESRD on dialysis Heart murmur Mitral regurgitation Hypothyroidism Vertigo Cardiomyopathy Sjogren syndrome with inflammatory arthritis Arthritis Hyperlipidemia Type 2 diabetes mellitus CKD (chronic kidney disease) stage 5, GFR less than 15 ml/min Bilateral lower extremity edema Macular degeneration Lumbar spinal stenosis Glaucoma Heart failure Osteoporosis Thyroid disease Gastric reflux Hypertension Hx of fracture of wrist Rheumatoid arthritis Kidney failure Cancer Anemia Home Medications ?Medication ?Instructions ?Recorded ?Last Taken ?Type levothyroxine 25 mcg tablet 25 mcg PO DAILY thryoid 06/13/22 01/14/24 History nifedipine 60 mg tablet,extended 60 mg PO BID BLOOD PRESSURE 07/16/23 01/14/24 History release latanoprost 0.005 % eye drops 1 drp EACH EYE QPM glaucoma 09/06/23 Unknown History lisinopril 20 mg tablet 20 mg PO BID hypertension 09/06/23 01/14/24 History atorvastatin 10 mg tablet 10 mg PO DAILY #90 tabs 11/07/23 Unknown Rx clonidine HCl 0.1 mg tablet 0.1 mg PO Q6H PRN hypertensive 11/07/23 Unknown History emergency hydralazine 100 mg tablet 100 mg PO Q8H hypertension 11/07/23 01/14/24 History mirtazapine 7.5 mg tablet 7.5 mg PO QHS 11/07/23 Unknown History pantoprazole 40 mg tablet,delayed 40 mg PO BID 11/07/23 Unknown History release clonidine 0.1 mg/24 hr weekly 1 patch transdermal ROLON 12/09/23 Unknown History transdermal patch carvedilol 25 mg tablet 50 mg PO BID 12/31/23 01/14/24 History Allergy/AdvReac Type Severity Reaction Status Date / Time beef derived (bovine) Allergy Unknown PT UNABLE Verified 01/14/24 13:50 TO RESPOND-NEEDS F/U Pork/Porcine Containing Allergy Unknown PT UNABLE Verified 01/14/24 13:50 Products TO RESPOND-NEEDS F/U adalimumab (From Humira) Allergy Hives Verified 01/14/24 13:50 Family History Mother Heart disease Hypertension Osteoporosis Father CVA (cerebral vascular accident) Hypertension Surgical History History of surgery Hx of esophagogastroduodenoscopy H/O transurethral resection of bladder tumor (TURBT) Hx of colonoscopy S/P total knee arthroplasty S/P vein stripping S/P partial hysterectomy History of bladder surgery History of nephrectomy Social History household members: family Smoking Status: Never smoker alcohol intake: never substance use type: does not use Vital Signs Vital Signs Vital Signs: 01/14/24 13:52 01/14/24 13:52 01/14/24 14:14 Temperature 97.2 F L 97.2 F L Temperature Source Temporal Pulse Rate 63 63 Respiratory Rate 18 18 Respiratory Pattern Normal Blood Pressure 180/72 H 180/72 H Blood Pressure Mean 108 Blood Pressure Source Monitor Blood Pressure Position Semi-Fowlers Blood Pressure Location Right Arm Pulse Ox 99 99 Oxygen Delivery Method Room Air 01/14/24 14:35 Temperature 97.6 F L Temperature Source Pulse Rate 90 Respiratory Rate 16 Respiratory Pattern Blood Pressure 115/76 Blood Pressure Mean Blood Pressure Source Blood Pressure Position Blood Pressure Location Pulse Ox 96 Oxygen Delivery Method Room Air Weight Weight: 45 kg Body Mass Index (BMI) 19.3
--- NOTE | 2024-01-14 15:02 | DCINST_ITS ---
Discharge Instructions Diet Discharge Diet: No restrictions Activity Discharge Activity: Return to Normal Activity and May Not Drive (while taking narcotic pain medications.) Dressing / Incision Call your doctor if you observe: Fever of 101 or Higher Catheter: Dupree to leg bag and Dupree to large bag Drain: [place] Follow Up Care Please Follow Up With: Dusty Soliman MD When: Call [phone] for an appointment Test Results: Test results from this visit will be discussed in further detail at your follow- up appointment, if applicable. Discharge Plan Admission Primary Reason for Your Visit: resection of bladder cancer Attending Provider: Dusty Soliman Primary Care Provider: Jacky Morgan Instructions Patient Instructions: Transurethral Bladder Tumor Dc Print Language: [place] Discharge Orders/Prescriptions Prescriptions: No Action atorvastatin 10 mg tablet 10 mg PO DAILY Qty: 90 1RF hydralazine 100 mg tablet 100 mg PO Q8H mirtazapine 7.5 mg tablet 7.5 mg PO QHS pantoprazole 40 mg tablet,delayed release (DR/EC) 40 mg PO BID clonidine HCl 0.1 mg tablet 0.1 mg PO Q6H PRN (Reason: hypertensive emergency) Patient Comments: for SBP >180 levothyroxine 25 mcg Tablet 25 mcg PO DAILY nifedipine 60 mg tablet extended release 60 mg PO BID clonidine 0.1 mg/24 hr patch weekly 1 patch transdermal ROLON lisinopril 20 mg tablet 20 mg PO BID latanoprost 0.005 % drops 1 drp EACH EYE QPM carvedilol 25 mg tablet 50 mg PO BID Referrals / Follow Up: Jacky Morgan MD [Primary Care Provider] - Dusty Soliman MD [Med Staff - Active Staff] - Disposition Disposition (needs filled in before D/C Order can be placed): Home, Self Care
--- NOTE | 2024-01-14 18:16 | OP.PCM_ITS ---
Report of Operation Date of Procedure: 01/14/24 Pre-Operative Diagnosis: Bladder cancer extensive superficial disease Post-Operative Diagnosis: The same Surgery/Procedure Performed:: Transurethral section of a large bladder tumor multiple and large Description of Surgical Findings:: Indication this is an 83-year-old female who was referred back locally from the [facility] she had a cystoscopy done in July at that point it was recom mended she have BCG therapy, we started BCG therapy in the office but after the second dose she could not tolerate the medication ended up in the hospital having some complications so we aborted the idea of doing more BCG therapy and then she started having bleeding so we did a cystoscopy in the office and it demonstrated that she had extensive amount of papillary tumors throughout her entire bladder. At this point I recommended we proceed with resection of these papillary tumors in hopes of resecting the entire tumors and rendering the patient as free as possible of bladder cancer. Patient was taken back to the operating room after smooth induction anesthesia she underwent general endotracheal anesthesia she had dialysis earlier today. She underwent paralytic to avoid any twitching of the muscles and obturator reflex prevention I then put a 26 Montenegrin continuous-flow resectoscope with a large loop and started the resection this was an incredibly difficult resection she had extensive amount of papillary tumors throughout her entire bladder lining the bladder and all all ellis of the trigone the posterior wall of the right wall the left while the dome and the anterior wall took about 3 hours to resect as much as possible but at the 3-hour froilan she still had some anterior tumors but it was getting quite bloody so at that point after resecting a significant amount of superficial bladder cancer I decided to stop the procedure cauterize for any bleeding and then put a three-way catheter into the bladder she was extubated and taken back to the PACU and should be monitored in the ICU she did have extensive blood loss during the procedure brought about 500 cc and may require blood transfusion postop. In terms of resection this was a large resection and I was able to resect practically all the tumors there is some still papillary anterior tumors I will plan to bring her back for second stage resection to try to clean up that final resection and then I will talk to the family about maybe trying BCG therapy again as she has an extensive amount of bladder cancer. Surgeon: Dusty Soliman Type of Anesthesia: General Drains: [address] Estimated Blood Loss (mL): 500 Admit VTE Documentation VTE Present on Admission: No VTE Mechan Device Prophylaxis: SCD's VTE Pharm Prophylaxis ordered?: No
--- NOTE | 2024-01-14 18:28 | PCM.POST.ANE ---
Anesthesia: Postop Eval I Current Vital Signs Temperature: 97 F Pulse Rate: 66 Blood Pressure: 132/66 Respiratory Rate: 16 Pulse Ox: 100 Oxygen Delivery Method: Room Air Assessment Airway patent: Yes Spontaneous unlabored respirations: Yes Mental status: Awake and Calm nausea: No Vomiting: No Anesthesia Complication: No Fluid Hydration Crystalloid volume administer (ml): 400 Total IV fluid infused: 400 Progress Note Anesthesia document: Postop Eval 1 completed: Yes
--- NOTE | 2024-01-14 18:53 | EKG12_ITS ---
Test Reason : chest pain Blood Pressure : / mmHG Vent. Rate : 061 BPM Atrial Rate : 061 BPM P-R Int : 182 ms QRS Dur : 084 ms QT Int : 494 ms P-R-T Axes : 049 019 071 degrees QTc Int : 497 ms Sinus rhythm with marked sinus arrhythmia Cannot rule out Anterior infarct , age undetermined Abnormal ECG No previous ECGs available Confirmed by John Paul Oconnor ([id number]), newspaper editor YE PAYAN ([id number]) on 01/19/2024 10:52:09 AM Referred By: Dusty Soliman Confirmed By:John Paul Oconnor
--- NOTE | 2024-01-14 18:58 | EKG12_ITS ---
Test Reason : Blood Pressure : / mmHG Vent. Rate : 063 BPM Atrial Rate : 063 BPM P-R Int : 172 ms QRS Dur : 082 ms QT Int : 474 ms P-R-T Axes : 046 021 063 degrees QTc Int : 485 ms Normal sinus rhythm Normal ECG When compared with ECG of 04-SEP-2023 19:09, QT has lengthened Confirmed by John Paul Oconnor ([id number]), publications editor UMESH WELDON ([id number]) on 01/19/2024 1:33:00 PM Referred By: Dusty Soliman Confirmed By:John Paul Oconnor
[2024-01-14 19:25] LABS: Hemoglobin 10.1 g/dL (12.0-15.0); Mean Corp Hgb Conc 30.6 g/dL (32-36); Mean Corpuscular Hgb 30.5 pg (27.0-32.0); Mean Corpuscular Volume 99.7 fL (81-99); Mean Platelet Vol. 11.5 fl (6.2-12.0); Platelet Count 132 K/mm3 (150-450); RBC Distribution Width CV 16.7 % (11.6-14.6); Red Blood Count 3.31 M/mm3 (4.2-5.4); White Blood Count 7.9 K/mm3 (4.4-11.0)
[2024-01-14 19:31] LABS: Anion Gap 10 (5-15); BUN 27 mg/dL (7-18); BUN/Creat Ratio 8.3 RATIO (10-20); Calcium,Total 8.6 mg/dL (8.5-10.1); Chloride 108 mmol/L (98-107); Creatinine, Serum 3.24 mg/dL (0.55-1.02); EST Glomerular Filtration Rate 15 mL/min (>60); Est Glom Filt Rate - Afr Amer 18 mL/min (>60); Estimated Creatinine Clearance 9.18 ml/min; Glucose 189 mg/dL (74-106); Sodium Level 137 mmol/L (136-145)
[2024-01-14] MEDS: Latanoprost 0.005% 1 Bottle 1 DRP EACH EYE (20:10)
[2024-01-14] MEDS: Docusate Sodium 100 MG Capsule 200 MG PO (20:18)
[2024-01-14] MEDS: 0.9% Normal Saline (1000mL) 1,000 ML 40 ML IV (20:30)
--- NOTE | 2024-01-14 20:35 | PN.HOSP_ITS ---
Subjective Subjective Patient status post recent transurethral resection of a large bladder tumor noted to be multiple per urology Dr. Soliman with reported blood loss 500 cc in the OR. Patient reportedly had stable blood pressures in PACU however upon transition to the ICU MAP was less than 65. Patient denied any lightheadedness or dizziness and noted some generalized lower abdominal discomfort. 500 cc normal saline bolus was administered with improvement of BP to 92/56 with a MAP of 68. Discussed with nursing staff and H&H is pending given blood loss in the OR. Patient has ongoing continuous bladder irrigation. Per discussion with staff and patient last dialysis was on day of presentation. Patient denies fevers, chills, nausea, emesis, chest pain or dyspnea. Objective Data Objective Data Vital Signs: Vital Signs Temp Pulse Resp BP Pulse Ox O2 Del Method O2 Flow Rate 97.2 F L 62 16 92/56 L 100 Room Air 4 01/14/24 19:22 01/14/24 19:22 01/14/24 19:22 01/14/24 19:22 01/14/24 19:22 01/14/24 19:22 01/14/24 18:45 Oxygen Flow Rate (L/min) 4 Oxygen Delivery Method Room Air Weight: 105 lb 9.403 oz Body Mass Index (BMI) 20.6 Intake & Output: Intake and Output for Last 24 Hours 01/12/24 01/13/24 01/14/24 23:59 23:59 23:59 Intake Total 500 / 500 Balance 500 / 500 Lab / Micro Data 01/14/24 21:00 01/14/24 19:13 Labs: Laboratory Results - last 24 hr 01/14/24 19:13: WBC 7.9, RBC 3.31 L, Hgb 10.1 L, Hct 33.0 L, MCV 99.7 H, MCH 30.5, MCHC 30.6 L, RDW Std Deviation 59.0 H, RDW Coeff of Wiliam 16.7 H, Plt Count 132 L, MPV 11.5, Sodium 137, Potassium 5.0, Chloride 108 H, Carbon Dioxide 19.0 L, Anion Gap 10, BUN 27 H, Creatinine 3.24 H, Estim Creat Clear Calc 9.18, Est GFR (MDRD) Af Amer 18 L, Est GFR (MDRD) Non-Af 15 L, BUN/Creatinine Ratio 8.3 L, Glucose 189 H, Calcium 8.6 Physical Exam Narrative Physical Examination: General: Awake, alert, oriented to self, place and recent events, fatigued but awakens easily, cooperative, seated upright in the ICU bed, notes some lower abdominal discomfort but otherwise no complaints. Skin: Normal color, normal turgor, no icterus, no cyanosis except for very staged ecchymoses, abrasions likely from IV placements. HEENT: AT/NC, EOMI, PERRLA, dry MM, no carotid bruits or JVD noted. Lungs: Diminished, greater bases, proper effort, no rales, ronchi or wheezing. Heart: Regular rate and rhythm; no gallop, rub audible. Abdomen: Soft, expected discomfort to palpation of the lower abdomen, mildly distended, mildly hyperactive BS, no appreciated HSM. Extremities: No cyanosis, no clubbing, very chronic mild peripheral distal lower extremity swelling/nonpitting, left upper extremity with AV access in place with thrill. Neurological: Patient awake, alert, oriented as noted, cognitive function intact; pupils equally reactive to light and accommodation, cranial nerves grossly normal, moving all 4 extremities, no focal deficits, strength moderately to severely global decreased as expected given recent OR. Psychiatric: Affect appears flat, fatigued, status post recent OR, no acute evidence of depressive or anxiety feelings. 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 1. 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 2. Postoperative hypotension with significant hypertensive history on multiple medications: As noted H&H has been requested, holding all hypertensive medications, administering 500 cc bolus, may add back hypertensive regimen as BP improves especially given on clonidine with potential for rebound hypertension. 3. ESRD: Patient following with nephrology, consult already placed per primary service, dialysis on day of presentation however if PRBC administration is necessary may require repeat dialysis 01/15/2024 but will continue to monitor. 4. Recent history of episodic altered mental status: Aggressive evaluation 08/2023 admission with neurology involvement felt secondary to potentially steroids with workup during that admission unremarkable aside positive paraneoplastic evaluation with decision at that time for IVIG versus plasmapheresis in light of chronic immunosuppression with transfer to [facility] at that time and during that admission patient was on IV Solu-Medrol of note. 5. GERD: We will continue patient home PPI. Recent EGD during 08/2023 presentation with normal esophagus with chronic gastritis which was biopsied at that time with mucosal changes in the duodenum also biopsied as well as a duodenal submucosal mass and melanosis duodenitis but per GI reportedly did not look malignant endoscopically. Encouraged continued outpatient follow-up with gastroenterology as previously arranged. 6. HFpEF: 07/16/2023 echocardiogram with normal LV size, severe concentric LVH, LV systolic function normal, LVEF 65%, stage I diastolic dysfunction, negative bubble contrast study, global longitudinal strain -17.4%. As noted above judiciously hydrating given hypotension, if PRBC is necessary may require earlier repeat dialysis with last episode on day of presentation, holding all hypertensive regimen, given current bleeding also necessary to hold antiplatelet therapy, continue statin therapy. 7. History of Diabetes mellitus type II with chronic neuropathy: Not on any oral or insulin regimen, less hemoglobin A1c noted 09/04/2023 5.2%, encourage continued lifestyle and diet changes, currently per primary service on renal diet with no Accu-Cheks thus would continue to monitor and if any evidence of hyperglycemia low threshold to add. 8. 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 9. Chronic anemia/iron deficiency anemia/AOCD: Noted preoperative labs with CBC with hemoglobin 10.1, MCV 99.7, prior to this baseline has vacillated and previously more so been 7-8 range occasionally dropping even lower but since October has been 10-12, repeat H&H pending as noted, trend CBC. 10. Severe protein calorie malnutrition: Evidenced by muscle and fat loss, nutrition consulted for supplementation recommendations. 11. Hypothyroidism: We will continue patient home levothyroxine regimen. 12. Hyperlipidemia: We will continue patient on statin therapy. 13. Rheumatoid nephritis: Per current list does not appear to be on regimen but attempting to clarify, given recent surgery would hold. 14. Anxiety and depression: We will continue patient home mirtazapine regimen. 15. DVT prophylaxis: SCDs. 16. CODE status: Patient's daughter is her medical decision maker if necessary. Patient is a full code. Charges/Coding Visit Charges Inpatient E&M: 46499 Subs Hosp L3
[2024-01-14] MEDS: 0.9% Normal Saline (500mL Bag) 500 ML 999 ML IV (20:40)
[2024-01-14 21:25] LABS: Hematocrit 28.6 % (37-47)
[2024-01-14] MEDS: fentaNYL 100 MCG/2 ML Ampul 25 MCG IV (23:00)
[2024-01-14] MEDS: Mirtazapine 15 MG Tablet 7.5 MG PO (23:02)
[2024-01-14] MEDS: Pantoprazole Sodium 40 MG Tablet PO (23:02)
--- NOTE | 2024-01-14 23:40 | POSTOPAN2_ITS ---
Anesthesia Postop Eval I Sum Postop Eval Completion status Anesthesia document: Postop Eval 1 completed: Yes Anesthesia Postop Eval I Summary Anesthesia Postop Eval I Summary: Anesthesia Postop Eval I: Assessment Summary Airway patent Yes 01/14/24 18:29 [email or web address] Spontaneous unlabored Yes 01/14/24 18:29 [email or web address] respirations Mental status Awake,Calm 01/14/24 18:29 [email or web address] nausea No 01/14/24 18:29 [email or web address].LATRELL Vomiting No 01/14/24 18:29 [email or web address] Anesthesia Postop Eval I: Fluid Summary Crystalloid volume administer 400 18 18:29 [email or web address] (ml) Colloids volume administered ( ml) Blood Product volume administered (ml) Total IV fluid infused 400 18 18:29 [email or web address].[email or web address] Anesthesia Postop Eval I: Summary Notes Anesthesia Complication No 01/14/24 18:29 [email or web address].[email or web address] Anesthesia Complication Comment: Post-operative progress note Anesthesia: Postop Eval II Evaluation Mental status: Awake and Calm Pain Level: 1 nausea: No Vomiting: No Complications Anesthesia Complication: No
--- NOTE | 2024-01-14 23:40 | PCM.POSTANE2 ---
Anesthesia Postop Eval I Sum Postop Eval Completion status Anesthesia document: Postop Eval 1 completed: Yes Anesthesia Postop Eval I Summary Anesthesia Postop Eval I Summary: Anesthesia Postop Eval I: Assessment Summary Airway patent Yes 01/14/24 18:29 BAG LOADER MACHINE [email or web address] Spontaneous unlabored Yes 01/14/24 18:29 BAG LOADER MACHINE OPERATOR.[email or web address] respirations Mental status Awake,Calm 01/14/24 18:29 BAG LOADER MACHINE OPERATOR.[email or web address] nausea No 01/14/24 18:29 BAG LOADER MACHINE OPERATOR.[email or web address] Vomiting No 01/14/24 18:29 BAG LOADER MACHINE OPERATOR.[email or web address] Anesthesia Postop Eval I: Fluid Summary Crystalloid volume administer 400 18 18:29 BAG LOADER MACHINE OPERATOR.[email or web address] (ml) Colloids volume administered ( ml) Blood Product volume administered (ml) Total IV fluid infused 400 18 18:29 BAG LOADER MACHINE OPERATOR.[email or web address] Anesthesia Postop Eval I: Summary Notes Anesthesia Complication No 01/14/24 18:29 BAG LOADER MACHINE OPERATOR.LATRELL Anesthesia Complication Comment: Post-operative progress note Anesthesia: Postop Eval II Evaluation Mental status: Awake and Calm Pain Level: 1 nausea: No Vomiting: No Complications Anesthesia Complication: No
[2024-01-15] VITALS (23 sets, daily range): BP systolic 121–224; BP diastolic 51–100; PULSE 66–94; RESP 16–22; TEMP 35.5–36.9; O2SAT 95–100; BMI 21.2
[2024-01-15] MEDS: fentaNYL 100 MCG/2 ML Ampul 25 MCG IV ×2 (01:07→06:02)
[2024-01-15] MEDS: Acetaminophen 325 MG Tablet 650 MG PO ×2 (02:41→23:16)
[2024-01-15] MEDS: Ondansetron 4 MG/2 ML Vial IV (02:48)
[2024-01-15 03:54] LABS: Hematocrit 31.7 % (37-47); Hemoglobin 9.8 g/dL (12.0-15.0); Mean Corp Hgb Conc 30.9 g/dL (32-36); Mean Corpuscular Hgb 30.4 pg (27.0-32.0); Mean Corpuscular Volume 98.4 fL (81-99); Mean Platelet Vol. 10.8 fl (6.2-12.0); Platelet Count 165 K/mm3 (150-450); Red Blood Count 3.22 M/mm3 (4.2-5.4)
[2024-01-15 04:11] LABS: Anion Gap 6 (5-15); BUN 40 mg/dL (7-18); BUN/Creat Ratio 12.2 RATIO (10-20); Calcium,Total 8.5 mg/dL (8.5-10.1); Chloride 111 mmol/L (98-107); Creatinine, Serum 3.29 mg/dL (0.55-1.02); EST Glomerular Filtration Rate 14 mL/min (>60); Est Glom Filt Rate - Afr Amer 17 mL/min (>60); Estimated Creatinine Clearance 9.14 ml/min; Glucose 193 mg/dL (74-106); Potassium 5.5 mmol/L (3.5-5.1); Sodium Level 137 mmol/L (136-145)
[2024-01-15] MEDS: cloNIDine HCl 0.1 MG Tablet PO (05:04)
[2024-01-15] MEDS: Levothyroxine 25 MCG TABLET PO (05:04)
[2024-01-15] MEDS: hydrALAZINE 50 MG Tablet 100 MG PO ×3 (05:04→20:38)
[2024-01-15] MEDS: Metoclopramide 10 MG/2 ML Vial IV (05:13)
[2024-01-15] MEDS: hydrALAZINE 20 MG/ML Vial 10 MG IV (05:39)
[2024-01-15] MEDS: 0.9% Normal Saline (1000mL) 1,000 ML 40 ML IV (05:54)
[2024-01-15] MEDS: 0.9% Saline Lock 10 ML Syringe IV (06:03)
[2024-01-15] MEDS: cloNIDine HCl 0.1 MG Patch TD (06:57)
--- NOTE | 2024-01-15 07:37 | PCM.PN.GU ---
Subjective Subjective Status post transurethral resection of a very large bladder tumor extensive surgery took about 3 hours. She did have 6 some significant blood loss. She was observed in the stepdown unit overnight she looks fairly stable she probably can go to the floor today. Blood work today looks okay probably will KVO her fluids and her blood pressure again is hypertensive but she does run fairly high constantly. Urine is clear on CBI will continue CBI for now. Objective Data Objective Data Vital Signs: Vital Signs Temp Pulse Resp BP Pulse Ox O2 Del Method O2 Flow Rate 97.4 F L 72 19 H 170/61 H 98 Room Air 4 01/15/24 05:29 01/15/24 07:00 01/15/24 07:00 01/15/24 07:00 01/15/24 07:00 01/15/24 07:00 01/14/24 18:45 Oxygen Flow Rate (L/min) 4 Oxygen Delivery Method Room Air Weight: 49.3 kg Body Mass Index (BMI) 21.2 Intake & Output: Intake and Output for Last 24 Hours 01/13/24 01/14/24 01/15/24 23:59 23:59 23:59 Intake Total 1110 / 1110 376 / 376 Output Total 3150 / 3150 1700 / 1700 Balance -2040 / -2040 -1324 / -1324 Lab / Micro Data 01/15/24 03:40 01/15/24 03:40 Labs: Laboratory Results - last 24 hr 01/14/24 19:13: WBC 7.9, RBC 3.31 L, Hgb 10.1 L, Hct 33.0 L, MCV 99.7 H, MCH 30.5, MCHC 30.6 L, RDW Std Deviation 59.0 H, RDW Coeff of Wiliam 16.7 H, Plt Count 132 L, MPV 11.5, Sodium 137, Potassium 5.0, Chloride 108 H, Carbon Dioxide 19.0 L, Anion Gap 10, BUN 27 H, Creatinine 3.24 H, Estim Creat Clear Calc 9.18, Est GFR (MDRD) Af Amer 18 L, Est GFR (MDRD) Non-Af 15 L, BUN/Creatinine Ratio 8.3 L, Glucose 189 H, Calcium 8.6 01/14/24 21:00: Hgb 9.0 L, Hct 28.6 L 01/15/24 03:40: WBC 22.0 H, RBC 3.22 L, Hgb 9.8 L, Hct 31.7 L, MCV 98.4, MCH 30.4, MCHC 30.9 L, RDW Std Deviation 58.0 H, RDW Coeff of Wiliam 17.0 H, Plt Count 165, MPV 10.8, Sodium 137, Potassium 5.5 H, Chloride 111 H, Carbon Dioxide 20.0 L, Anion Gap 6, BUN 40 H, Creatinine 3.29 H, Estim Creat Clear Calc 9.14, Est GFR (MDRD) Af Amer 17 L, Est GFR (MDRD) Non-Af 14 L, BUN/Creatinine Ratio 12.2, Glucose 193 H, Calcium 8.5 Physical Exam Const alert and oriented x3 General Appearance: cooperative HEENT normocephalic and head/scalp atraumatic Eyes PERRL and EOMs intact bilaterally Neck supple, no JVD and no carotid bruits Resp normal respiratory effort, normal air movement and clear to auscultation bilaterally Cardio regular rate and no murmurs GI normal to inspection, nondistended, normoactive bowel sounds and soft to palpation Extremity normal capillary refill General Extremity: no tenderness to palpation of joints or extremities; Negative for edema Skin no rashes or lesions noted and no wounds General Skin Exam: no breakdown Neuro CN's II-XII intact bilaterally Psych affect normal Appearance: appropriate Assessment & Plan Assessment/Plan (1) Bladder cancer: PLAN: Continue with CBI, transfer to stepdown or regular floor once bed available. Will continue to monitor blood counts on daily basis. (2) Hypertensive crisis:
[2024-01-15] MEDS: NIFEdipine 60 MG Tablet PO ×2 (09:22→20:41)
[2024-01-15] MEDS: Carvedilol 25 MG Tablet PO ×2 (09:23→20:39)
[2024-01-15] MEDS: Pantoprazole Sodium 40 MG Tablet PO ×2 (09:23→20:41)
--- NOTE | 2024-01-15 12:30 | CASEMGMT ---
RN CLEVE air brake man CM to room to meet with patient for initial transition planning/care coordination assessment. RN CLEVE introduced self and role at [facility], pt voices understanding. Pt is A&Ox3 and is resting comfortably in bed and is calm. Care providers, pharmacy, and demographics verified. TERRENCEE Strata: 2 PCP: Dr Morgan Specialists: Dr Milagros Cason (Nephro in [place]), Dr Soliman (urologist) HD: Pt goes to [facility] [place], [facility], chair time 0630. Preferred Pharmacy: [facility] [place] Insurance: [facility] A/B, [facility] supplement Prescription Benefit: Yes LNOK: Jabier Durand (son), Marni Durand (DIL) Living Arrangements: Pt lives with her , son, and DIL in a 2 story home with a basement garage. There are 12 steps to basement, but they do have a stair lift they use. FFSU once they get to main floor. Pt's requires help at home. They have Private Duty Aides that come Fri-, 9:30/10 AM til 1:30/2 PM, who assist pt and her w/ADL's. Pt states she can shower/bath herself mostly, but aides will sit nearby to assist as needed. Pt's son manages her medications. Aides do most of the IADL's. Transportation: Lizzette, son. Pt states she also has transportation to [facility]. DME: Pt has stair lift, walk in shower with grab bar and seat, walker, BP Cuff, pulse ox, glucometer, and medical alert. HHC/SNF: Pt has been to [facility] in June 2023. No hx of [facility]. Discussed discharge planning. Pt states she is currently feeling weak and is not sure how she will be feeling by the time she is ready for discharge. Plan: TBD. Therapy evals pending. Alyssa MENA RN, CM
--- NOTE | 2024-01-15 12:38 | PCM.PN.HOSP ---
Reason for Visit Reason for Visit: Diagnoses Malignant neoplasm of bladder, unspecified (01/14/24) Hypertensive crisis, unspecified (01/14/24) Subjective Subjective Saw patient at bedside this morning. Patient was mildly fatigued appearing but otherwise sitting up fairly comfortably in bed, in no acute distress. She did report some ongoing pain in the bladder area. Continuous bladder irrigation was ongoing when I saw her. No other acute concerns at this time. Objective Data Objective Data Vital Signs: Vital Signs Temp Pulse Resp BP Pulse Ox O2 Del Method O2 Flow Rate 98 F 75 20 H 159/58 H 98 Room Air 4 01/15/24 11:10 01/15/24 11:10 01/15/24 11:10 01/15/24 11:10 01/15/24 11:10 01/15/24 11:10 01/14/24 18:45 Oxygen Flow Rate (L/min) 4 Oxygen Delivery Method Room Air Weight: 49.3 kg Body Mass Index (BMI) 21.2 Intake & Output: Intake and Output for Last 24 Hours 01/13/24 01/14/24 01/15/24 23:59 23:59 23:59 Intake Total 1110 / 1110 936.5 / 936.5 Output Total 3150 / 3150 5500 / 5500 Balance -2040 / -2040 -4563.5 / -4563.5 Lab / Micro Data 01/15/24 03:40 01/15/24 03:40 Labs: Laboratory Results - last 24 hr 01/14/24 19:13: WBC 7.9, RBC 3.31 L, Hgb 10.1 L, Hct 33.0 L, MCV 99.7 H, MCH 30.5, MCHC 30.6 L, RDW Std Deviation 59.0 H, RDW Coeff of Wiliam 16.7 H, Plt Count 132 L, MPV 11.5, Sodium 137, Potassium 5.0, Chloride 108 H, Carbon Dioxide 19.0 L, Anion Gap 10, BUN 27 H, Creatinine 3.24 H, Estim Creat Clear Calc 9.18, Est GFR (MDRD) Af Amer 18 L, Est GFR (MDRD) Non-Af 15 L, BUN/Creatinine Ratio 8.3 L, Glucose 189 H, Calcium 8.6 01/14/24 21:00: Hgb 9.0 L, Hct 28.6 L 01/15/24 03:40: WBC 22.0 H, RBC 3.22 L, Hgb 9.8 L, Hct 31.7 L, MCV 98.4, MCH 30.4, MCHC 30.9 L, RDW Std Deviation 58.0 H, RDW Coeff of Wiliam 17.0 H, Plt Count 165, MPV 10.8, Sodium 137, Potassium 5.5 H, Chloride 111 H, Carbon Dioxide 20.0 L, Anion Gap 6, BUN 40 H, Creatinine 3.29 H, Estim Creat Clear Calc 9.14, Est GFR (MDRD) Af Amer 17 L, Est GFR (MDRD) Non-Af 14 L, BUN/Creatinine Ratio 12.2, Glucose 193 H, Calcium 8.5 Physical Exam Const alert, oriented x3 and no apparent distress Constitutional Narrative: Elderly female, somewhat chronically ill-appearing and thin, mildly fatigued appearing, otherwise sitting up fairly comfortably in bed, conversing normally, in no acute distress. General Appearance: cooperative HEENT normocephalic, head/scalp atraumatic, hearing grossly normal bilaterally, nasal mucous membranes and turbinates normal and moist oral mucous membranes Eyes PERRL, EOMs intact bilaterally and conjunctivae normal Neck full ROM Chest inspection of chest normal Resp normal respiratory effort, normal air movement, no use of accessory muscles and clear to auscultation bilaterally Cardio regular rate, regular rhythm, no murmurs and peripheral pulses 2+ throughout GI normal to inspection, nondistended, normoactive bowel sounds, soft to palpation, non-tender and non-distended Negative for no CVA tenderness Narrative: Mild tenderness to palpation of suprapubic region. Continuous bladder irrigation ongoing. Back/Spine normal ROM Extremity normal to inspection, full ROM and no pedal edema Skin no rashes or lesions noted Neuro no focal motor deficits and no sensory deficits noted Speech: speech normal Psych mental status grossly normal Assessment & Plan Assessment/Plan (1) Metastatic renal cell carcinoma: (2) Bladder cancer: (3) Accelerated hypertension: (4) ESRD on hemodialysis: PLAN: Plan Patient is an 83-year-old female who [facility] for planned cystoscopy with transurethral resection of bladder tumors by urology. Medicine consulted postoperatively for medical management. 1. 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 Urology primary. S/p cystoscopy with transurethral resection of multiple bladder tumors by urology on 01/13. Had significant blood loss noted by urology during procedure but only mild blood loss and stable hemoglobin now as noted below. Continue with continuous bladder irrigation per urology. Further recommendations per urology. 2. Postoperative hypotension, resolved; history of resistant hypertension ? Noted to have postoperative hypotension and placed in the ICU on admission. Resolved with only small fluid bolus and hypertensive on hospital day 2. On significant home regimen including Coreg, clonidine patch, hydralazine, lisinopril and nifedipine. Home regimen restarted on hospital day 2 with reduced Coreg dose of 25 mg twice daily with good control of blood pressure. Will continue this regimen for now. 3. Mild acute on chronic anemia secondary to expected postoperative blood loss ? Hemoglobin 12.5 in October and appears this was her baseline, though she notably has had very low hemoglobin values as of earlier this year. Hemoglobin trend postoperatively 10.1 > 9.0 > 9.8. Hemodynamically stable with no further active bleeding noted with CBI. Monitor CBC daily. 4. ESRD on HD ? Nephrology following. On HD Friday. Next HD session planned for tomorrow. 5. Malnutrition ruled out ? Nutrition evaluated. Malnutrition ruled out on admission as patient does not meet criteria. However, patient with active cancer as noted above and nutrition added dietary supplement for increased protein intake. 6. Recent history of episodic altered mental status ? Hospitalized here in 08/2023 for this. Neurology followed and there was concern patient's symptoms could be secondary to a paraneoplastic syndrome. Patient ultimately was transferred to [facility] for further evaluation. Unclear if patient received IVIG versus plasmapheresis there but patient notably stable off steroids prior to this admission. Continue outpatient follow-up. Chronic medical conditions: ? GERD: Continue home PPI. ? Hypothyroidism ? Continue home Synthroid. ? Hyperlipidemia: Continue statin. ? Anxiety/depression: Continue home mirtazapine. DVT prophylaxis: SCDs Total clinical time spent by myself addressing the patient's medical issues, reviewing all the data, and collaborating with patient's care team: 35 minutes. Charges/Coding Visit Charges Inpatient E&M: 40477 Subs Hosp L2
--- NOTE | 2024-01-15 15:23 | CON.PCM.RE_ITS ---
Assessment & Plan Assessment/Plan (1) ESRD on hemodialysis: PLAN: On hemodialysis Friday, Friday, Friday. Has a left arm AV fistula for access. Will plan for dialysis tomorrow as per schedule. Hyperkalemia. Potassium is borderline high at 5.5. Should improve with dialysis. Hypotension yesterday, resolved. Blood pressure is normal now. She is on multiple medications for hypertension in general. HPI Consult Data Date of Consult: 01/15/24 HPI Narrative Reason for Consultation: ESRD HPI Narrative: MONA ESTRELLA, is a 83 F who presents to the hospital after her bladder tumor surgery. Nephrology on consultation in view of ESRD. Currently on hemodialysis Friday, Friday, Friday. Primary splicer operator is Dr. Reyes. Overnight had hypotension, admitted to the ICU. Blood pressure is better today. In general she runs high blood pressures, requiring multiple medications. Bladder irrigation ongoing. [facility]LY [facility] Medical History History of echocardiogram Wears glasses Post-menopausal Cancer Anxiety History of steroid therapy Walker as ambulation aid Low iron High cholesterol Injury of head and neck Syncope Falls Non-smoker ESRD on dialysis Heart murmur Mitral regurgitation Hypothyroidism Vertigo Cardiomyopathy Sjogren syndrome with inflammatory arthritis Arthritis Hyperlipidemia Type 2 diabetes mellitus CKD (chronic kidney disease) stage 5, GFR less than 15 ml/min Bilateral lower extremity edema Macular degeneration Lumbar spinal stenosis Glaucoma Heart failure Osteoporosis Thyroid disease Gastric reflux Hypertension Hx of fracture of wrist Rheumatoid arthritis Kidney failure Cancer Anemia Home Medications ?Medication ?Instructions ?Recorded ?Last Taken ?Type levothyroxine 25 mcg tablet 25 mcg PO DAILY thryoid 06/13/22 01/14/24 History nifedipine 60 mg tablet,extended 60 mg PO BID BLOOD PRESSURE 07/16/23 01/14/24 History release latanoprost 0.005 % eye drops 1 drp EACH EYE QPM glaucoma 09/06/23 Unknown History lisinopril 20 mg tablet 20 mg PO BID hypertension 09/06/23 01/14/24 History atorvastatin 10 mg tablet 10 mg PO DAILY #90 tabs 11/07/23 Unknown Rx clonidine HCl 0.1 mg tablet 0.1 mg PO Q6H PRN hypertensive 11/07/23 Unknown History emergency hydralazine 100 mg tablet 100 mg PO Q8H hypertension 11/07/23 01/14/24 History mirtazapine 7.5 mg tablet 7.5 mg PO QHS 11/07/23 Unknown History pantoprazole 40 mg tablet,delayed 40 mg PO BID 11/07/23 Unknown History release clonidine 0.1 mg/24 hr weekly 1 patch transdermal ROLON 12/09/23 Unknown History transdermal patch carvedilol 25 mg tablet 50 mg PO BID 12/31/23 01/14/24 History Allergy/AdvReac Type Severity Reaction Status Date / Time beef derived (bovine) Allergy Unknown PT UNABLE Verified 01/14/24 13:50 TO RESPOND-NEEDS F/U Pork/Porcine Containing Allergy Unknown PT UNABLE Verified 01/14/24 13:50 Products TO RESPOND-NEEDS F/U adalimumab (From Humira) Allergy Hives Verified 01/14/24 13:50 Family History Mother Heart disease Hypertension Osteoporosis Father CVA (cerebral vascular accident) Hypertension Surgical History History of surgery Hx of esophagogastroduodenoscopy H/O transurethral resection of bladder tumor (TURBT) Hx of colonoscopy S/P total knee arthroplasty S/P vein stripping S/P partial hysterectomy History of bladder surgery History of nephrectomy Social History household members: family Smoking Status: Never smoker alcohol intake: never substance use type: does not use ROS ROS Narrative Negative except above Physical Exam Narrative Alert awake oriented x 3 no obvious distress no pallor no icterus no JVD s1s2 no murmurs lungs clear abdomen soft no organomegaly no edema Lab / Micro Data 01/15/24 03:40 01/15/24 03:40 Labs: Laboratory Results - last 24 hr 01/14/24 19:13: WBC 7.9, RBC 3.31 L, Hgb 10.1 L, Hct 33.0 L, MCV 99.7 H, MCH 30.5, MCHC 30.6 L, RDW Std Deviation 59.0 H, RDW Coeff of Wiliam 16.7 H, Plt Count 132 L, MPV 11.5, Sodium 137, Potassium 5.0, Chloride 108 H, Carbon Dioxide 19.0 L, Anion Gap 10, BUN 27 H, Creatinine 3.24 H, Estim Creat Clear Calc 9.18, Est GFR (MDRD) Af Amer 18 L, Est GFR (MDRD) Non-Af 15 L, BUN/Creatinine Ratio 8.3 L, Glucose 189 H, Calcium 8.6 01/14/24 21:00: Hgb 9.0 L, Hct 28.6 L 01/15/24 03:40: WBC 22.0 H, RBC 3.22 L, Hgb 9.8 L, Hct 31.7 L, MCV 98.4, MCH 30.4, MCHC 30.9 L, RDW Std Deviation 58.0 H, RDW Coeff of Wiliam 17.0 H, Plt Count 165, MPV 10.8, Sodium 137, Potassium 5.5 H, Chloride 111 H, Carbon Dioxide 20.0 L, Anion Gap 6, BUN 40 H, Creatinine 3.29 H, Estim Creat Clear Calc 9.14, Est GFR (MDRD) Af Amer 17 L, Est GFR (MDRD) Non-Af 14 L, BUN/Creatinine Ratio 12.2, Glucose 193 H, Calcium 8.5
[2024-01-15] MEDS: Latanoprost 0.005% 1 Bottle 1 DRP EACH EYE (20:38)
[2024-01-15] MEDS: Docusate Sodium 100 MG Capsule 200 MG PO (20:40)
[2024-01-15] MEDS: Mirtazapine 15 MG Tablet 7.5 MG PO (20:42)
[2024-01-15] MEDS: Lisinopril 20 MG Tablet PO (20:43)
[2024-01-15] MEDS: Atorvastatin Calcium 10 MG Tablet PO (21:31)
[2024-01-16] VITALS (15 sets, daily range): BP systolic 121–179; BP diastolic 50–75; PULSE 73–96; RESP 19–25; TEMP 36.6–36.8; O2SAT 95–99; BMI 21.7
[2024-01-16] MEDS: Levothyroxine 25 MCG TABLET PO (06:04)
[2024-01-16 06:55] LABS: Hematocrit 19.9 % (37-47); Hemoglobin 6.2 g/dL (12.0-15.0); Mean Corp Hgb Conc 31.2 g/dL (32-36); Mean Corpuscular Volume 99.5 fL (81-99); Mean Platelet Vol. 11.1 fl (6.2-12.0); Platelet Count 107 K/mm3 (150-450); RBC Distribution Width CV 18.1 % (11.6-14.6); RBC Distribution Width SD 63.2 fl (35.1-43.9); White Blood Count 13.4 K/mm3 (4.4-11.0)
--- NOTE | 2024-01-16 07:04 | PCM.PN.GU ---
Subjective Subjective Status post extensive resection of her bladder cancer, we can stop continuous bladder irrigation today, tomorrow may switch her catheter to a smaller catheter. Today I will have physical therapy and Occupational Therapy evaluate her whether she can go home or go to extended-care facility for short-term rehab. She will get dialysis today otherwise she is fairly stable she is a little weak and from her fairly long surgery the other day. Objective Data Objective Data Vital Signs: Vital Signs Temp Pulse Resp BP Pulse Ox O2 Del Method O2 Flow Rate 98.1 F 73 22 H 145/50 H 98 Room Air 4 01/16/24 05:00 01/16/24 05:00 01/16/24 05:00 01/16/24 06:16 01/16/24 06:00 01/16/24 06:00 01/14/24 18:45 Oxygen Flow Rate (L/min) 4 Oxygen Delivery Method Room Air Weight: 50.2 kg Body Mass Index (BMI) 21.7 Intake & Output: Intake and Output for Last 24 Hours 01/14/24 01/15/24 01/16/24 23:59 23:59 23:59 Intake Total 1110 / 1110 1176.5 / 1176.5 Output Total 3150 / 3150 9400 / 9600 500 / 500 Balance -2040 / -2040 -8223.5 / -8423.5 -500 / -500 Lab / Micro Data 01/16/24 06:35 01/15/24 03:40 Labs: Laboratory Results - last 24 hr 01/16/24 06:35: WBC 13.4 H, RBC 2.00 L, Hgb 6.2 L, Hct 19.9 L, MCV 99.5 H, MCH 31.0, MCHC 31.2 L, RDW Std Deviation 63.2 H, RDW Coeff of Wiliam 18.1 H, Plt Count 107 L, MPV 11.1
[2024-01-16 07:20] LABS: Anion Gap 9 (5-15); BUN 67 mg/dL (7-18); BUN/Creat Ratio 13.8 RATIO (10-20); Calcium,Total 8.4 mg/dL (8.5-10.1); Chloride 108 mmol/L (98-107); Creatinine, Serum 4.87 mg/dL (0.55-1.02); EST Glomerular Filtration Rate 9 mL/min (>60); Est Glom Filt Rate - Afr Amer 11 mL/min (>60); Estimated Creatinine Clearance 6.18 ml/min; Glucose 124 mg/dL (74-106); Potassium 5.9 mmol/L (3.5-5.1); Sodium Level 136 mmol/L (136-145)
[2024-01-16] MEDS: Carvedilol 25 MG Tablet PO ×2 (09:38→20:25)
[2024-01-16] MEDS: NIFEdipine 60 MG Tablet PO ×2 (09:38→20:23)
[2024-01-16] MEDS: Pantoprazole Sodium 40 MG Tablet PO ×2 (09:38→20:22)
[2024-01-16] MEDS: Docusate Sodium 100 MG Capsule 200 MG PO ×2 (09:38→20:25)
[2024-01-16] MEDS: Lisinopril 20 MG Tablet PO ×2 (09:38→20:23)
--- NOTE | 2024-01-16 11:38 | CASEMGMT ---
Addendum entered by Julio Moreira 01/16/24 11:47: Call placed to [facility] and spoke w/Caron. She was made aware anticipate pt will discharge home today, and if not today, then over the weekend. She was also made aware pt to get HD today while @ the hospital and plan is to return to [facility] for HD tx on Friday. She voices appreciation for the call. Original Note: LIZETTE POON NOTE: Pt required 2 assist yesterday when OOB. Therapy worked w/pt today and informed this RN CLEVE that she was SBA w/use of walker w/them today, feels that pt will be safe to discharge home, and may benefit from HHC @ discharge. LIZETTE POON to room. Pt sitting up in chair. She wishes to discharge home and feels she will be safe. Discussed HHC, she asks LIZETTE POON to call her son, Jabier, and states if he thinks it would be a good idea, then she would be agreeable, but to leave the decision up to him. Call placed to Jabier and he was made aware of above. LIZETTE POON inquired if he would want HHC for pt for therapy or nursing, but he declines HHC for either service, stating, No thank you. He states he feels once pt gets the blood transfusion that she will be okay and feels the aides they have 4 days/week is sufficient for her. Made aware if they change their mind once pt returns home, to f/u with PCP. He voices no other needs/concerns. Alyssa MENA RN, CM
--- NOTE | 2024-01-16 11:59 | PCM.PN.HOSP ---
Reason for Visit Reason for Visit: Diagnoses Malignant neoplasm of unspecified kidney, except renal pelvis (01/14/24) Malignant neoplasm of bladder, unspecified (01/14/24) Essential (primary) hypertension (01/14/24) Hypertensive crisis, unspecified (01/14/24) End stage renal disease (01/14/24) Dependence on renal dialysis (01/14/24) Subjective Subjective Saw patient at bedside this morning. Patient appeared similar today to yesterday. CBI had been discontinued by urology and patient stated she was not in pain in her bladder region this morning. She was hemodynamically stable and denied any worsening fatigue or shortness of breath despite her hemoglobin dropping since yesterday. No other new concerns today. Objective Data Objective Data Vital Signs: Vital Signs Temp Pulse Resp BP Pulse Ox O2 Del Method O2 Flow Rate 98.0 F 87 23 H 142/53 H 99 Room Air 4 01/16/24 09:30 01/16/24 09:30 01/16/24 09:30 01/16/24 09:30 01/16/24 09:30 01/16/24 09:31 01/14/24 18:45 Oxygen Flow Rate (L/min) 4 Oxygen Delivery Method Room Air Weight: 50.2 kg Body Mass Index (BMI) 21.7 Intake & Output: Intake and Output for Last 24 Hours 01/14/24 01/15/24 01/16/24 23:59 23:59 23:59 Intake Total 1110 / 1110 1176.5 / 1176.5 Output Total 3150 / 3150 9400 / 9600 1050 / 1050 Balance -2040 / -2040 -8223.5 / -8423.5 -1050 / -1050 Lab / Micro Data 01/16/24 06:35 01/16/24 06:35 Labs: Laboratory Results - last 24 hr 01/16/24 06:35: WBC 13.4 H, RBC 2.00 L, Hgb 6.2 L, Hct 19.9 L, MCV 99.5 H, MCH 31.0, MCHC 31.2 L, RDW Std Deviation 63.2 H, RDW Coeff of Wiliam 18.1 H, Plt Count 107 L, MPV 11.1, Sodium 136, Potassium 5.9 H, Chloride 108 H, Carbon Dioxide 19.0 L, Anion Gap 9, BUN 67 H, Creatinine 4.87 H, Estim Creat Clear Calc 6.18, Est GFR (MDRD) Af Amer 11 L, Est GFR (MDRD) Non-Af 9 L, BUN/Creatinine Ratio 13.8, Glucose 124 H, Calcium 8.4 L 01/16/24 07:35: Blood Type O POSITIVE, Antibody Screen NEGATIVE, Crossmatch See Detail Physical Exam Const alert, oriented x3 and no apparent distress Constitutional Narrative: Elderly female, somewhat chronically ill-appearing and thin, mildly fatigued appearing, otherwise sitting up fairly comfortably in bed, conversing normally, in no acute distress. Stable. General Appearance: cooperative HEENT normocephalic, head/scalp atraumatic, hearing grossly normal bilaterally, nasal mucous membranes and turbinates normal and moist oral mucous membranes Eyes PERRL, EOMs intact bilaterally and conjunctivae normal Neck full ROM Chest inspection of chest normal Resp normal respiratory effort, normal air movement, no use of accessory muscles and clear to auscultation bilaterally Cardio regular rate, regular rhythm, no murmurs and peripheral pulses 2+ throughout GI normal to inspection, nondistended, normoactive bowel sounds, soft to palpation, non-tender and non-distended Negative for no CVA tenderness Bladder / Kidney Exam: bladder normal to palpation Back/Spine normal ROM Extremity normal to inspection, full ROM and no pedal edema Skin no rashes or lesions noted Neuro no focal motor deficits and no sensory deficits noted Speech: speech normal Psych mental status grossly normal Assessment & Plan Assessment/Plan (1) Metastatic renal cell carcinoma: (2) Bladder cancer: (3) Accelerated hypertension: (4) ESRD on hemodialysis: PLAN: Plan Patient is an 83-year-old female who presented to [facility] on 01/14/2024 for planned cystoscopy with transurethral resection of bladder tumors by urology. Medicine consulted postoperatively for medical management. 1. 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 Urology primary. S/p cystoscopy with transurethral resection of multiple bladder tumors by urology on 01/13. Had significant blood loss noted by urology and was admitted after procedure for that reason. Continuous bladder irrigation discontinued on 01/15. Transfusing as noted below. Further recommendations per urology. 2. Postoperative hypotension, resolved; history of resistant hypertension ? Noted to have postoperative hypotension and placed in the ICU on admission. Resolved with only small fluid bolus and hypertensive on hospital day 2. On significant home regimen including Coreg, clonidine patch, hydralazine, lisinopril and nifedipine. Home regimen restarted on hospital day 2 with reduced Coreg dose of 25 mg twice daily with good control of blood pressure. Blood pressure remaining stable on this regimen. 3. Acute chronic anemia secondary to postoperative blood loss ? Hemoglobin 12.5 in October and appears this was her baseline, though she notably has had very low hemoglobin values as of earlier this year. Hemoglobin stable postoperatively around 9-10 but then dropped to 6.2 on 01/15. This is presumed secondary to blood loss from her procedure. Hemodynamically stable and asymptomatic with this blood loss. S/p 2 units of blood with dialysis on 01/15. Will recheck hemoglobin tomorrow. 4. ESRD on HD ? Nephrology following. On HD Friday. Next HD session planned for this afternoon. 5. Malnutrition ruled out ? Nutrition evaluated. Malnutrition ruled out on admission as patient does not meet criteria. However, patient with active cancer as noted above and nutrition added dietary supplement for increased protein intake. 6. Recent history of episodic altered mental status ? Hospitalized here in 08/2023 for this. Neurology followed and there was concern patient's symptoms could be secondary to a paraneoplastic syndrome. Patient ultimately was transferred to [facility] for further evaluation. Unclear if patient received IVIG versus plasmapheresis there but patient notably stable off steroids prior to this admission. Continue outpatient follow-up. 7. Chronic debility ? PT/OT/case management following. Planning for home on discharge with family plus or minus HHC. Chronic medical conditions: ? GERD: Continue home PPI. ? Hypothyroidism: Continue home Synthroid. ? Hyperlipidemia: Continue statin. ? Anxiety/depression: Continue home mirtazapine. DVT prophylaxis: SCDs Total clinical time spent by myself addressing the patient's medical issues, reviewing all the data, and collaborating with patient's care team: 35 minutes. Charges/Coding Visit Charges Inpatient E&M: 80934 Subs Hosp L2
--- NOTE | 2024-01-16 13:44 | PN.RENAL_ITS ---
Subjective Subjective Somewhat sleepy today Objective Data Objective Data Vital Signs: Vital Signs Temp Pulse Resp BP Pulse Ox O2 Del Method O2 Flow Rate 98.0 F 87 23 H 142/53 H 99 Room Air 4 01/16/24 09:30 01/16/24 09:30 01/16/24 09:30 01/16/24 09:30 01/16/24 09:30 01/16/24 09:31 01/14/24 18:45 Oxygen Flow Rate (L/min) 4 Oxygen Delivery Method Room Air Weight: 50.2 kg Body Mass Index (BMI) 21.7 Intake & Output: Intake and Output for Last 24 Hours 01/14/24 01/15/24 01/16/24 23:59 23:59 23:59 Intake Total 1110 / 1110 1176.5 / 1176.5 Output Total 3150 / 3150 9400 / 9600 1100 / 1100 Balance -2040 / -2040 -8223.5 / -8423.5 -1100 / -1100 Lab / Micro Data 01/16/24 06:35 01/16/24 06:35 Labs: Laboratory Results - last 24 hr 01/16/24 06:35: WBC 13.4 H, RBC 2.00 L, Hgb 6.2 L, Hct 19.9 L, MCV 99.5 H, MCH 31.0, MCHC 31.2 L, RDW Std Deviation 63.2 H, RDW Coeff of Wiliam 18.1 H, Plt Count 107 L, MPV 11.1, Sodium 136, Potassium 5.9 H, Chloride 108 H, Carbon Dioxide 19.0 L, Anion Gap 9, BUN 67 H, Creatinine 4.87 H, Estim Creat Clear Calc 6.18, E st GFR (MDRD) Af Amer 11 L, Est GFR (MDRD) Non-Af 9 L, BUN/Creatinine Ratio 13.8, Glucose 124 H, Calcium 8.4 L 01/16/24 07:35: Blood Type O POSITIVE, Antibody Screen NEGATIVE, Crossmatch See Detail Physical Exam Narrative no obvious distress no pallor no icterus no JVD s1s2 no murmurs lungs clear abdomen soft no organomegaly no edema Assessment & Plan Assessment/Plan (1) ESRD on hemodialysis: PLAN: On hemodialysis Friday, Friday, Friday. Has a left arm AV fistula for access. Hemodialysis arranged for today, see orders. Hyperkalemia. Will plan for dialysis on a 2K bath Anemia. Discussed with primary. PRBC ordered, to be given with dialysis today
[2024-01-16] MEDS: hydrALAZINE 50 MG Tablet 100 MG PO ×2 (15:02→19:57)
[2024-01-16] MEDS: Sodium Polystyrene Sulfonate 15 GM/60 ML UDC PO (18:36)
[2024-01-16] MEDS: Acetaminophen 325 MG Tablet 650 MG PO (19:56)
[2024-01-16] MEDS: Latanoprost 0.005% 1 Bottle 1 DRP EACH EYE (19:57)
[2024-01-16] MEDS: Atorvastatin Calcium 10 MG Tablet PO (19:58)
[2024-01-16] MEDS: Mirtazapine 15 MG Tablet 7.5 MG PO (20:22)
[2024-01-17] VITALS (36 sets, daily range): BP systolic 49–229; BP diastolic 59–108; PULSE 71–96; RESP 18–30; TEMP 36.1–37; O2SAT 90–98; BMI 21.9; BMI 23.1; BMI 22.9
[2024-01-17] MEDS: Levothyroxine 25 MCG TABLET PO (05:47)
[2024-01-17] MEDS: hydrALAZINE 50 MG Tablet 100 MG PO ×3 (05:47→22:01)
[2024-01-17] MEDS: Acetaminophen 325 MG Tablet 650 MG PO (05:51)
[2024-01-17 07:28] LABS: Hematocrit 18.9 % (37-47); Mean Corp Hgb Conc 31.7 g/dL (32-36); Mean Corpuscular Hgb 30.8 pg (27.0-32.0); Mean Corpuscular Volume 96.9 fL (81-99); Mean Platelet Vol. 10.4 fl (6.2-12.0); POSITIVE COUNT YES; Platelet Count 90 K/mm3 (150-450); RBC Distribution Width CV 17.9 % (11.6-14.6); RBC Distribution Width SD 61.3 fl (35.1-43.9); Red Blood Count 1.95 M/mm3 (4.2-5.4)
[2024-01-17 07:35] LABS: Scan Indicated on CBC? Y/N YES- FLAGS NOTED
[2024-01-17 07:44] LABS: Anion Gap 10 (5-15); BUN 80 mg/dL (7-18); BUN/Creat Ratio 13.6 RATIO (10-20); Calcium,Total 8.1 mg/dL (8.5-10.1); Chloride 107 mmol/L (98-107); EST Glomerular Filtration Rate 7 mL/min (>60); Est Glom Filt Rate - Afr Amer 9 mL/min (>60); Glucose 123 mg/dL (74-106); Potassium 5.5 mmol/L (3.5-5.1); Sodium Level 136 mmol/L (136-145)
[2024-01-17] MEDS: Pantoprazole Sodium 40 MG Tablet PO ×2 (08:02→22:00)
[2024-01-17] MEDS: NIFEdipine 60 MG Tablet PO ×2 (08:02→22:01)
[2024-01-17] MEDS: Carvedilol 25 MG Tablet PO ×2 (08:02→22:06)
[2024-01-17] MEDS: Docusate Sodium 100 MG Capsule 200 MG PO (08:02)
[2024-01-17] MEDS: Lisinopril 20 MG Tablet PO ×2 (08:03→22:00)
--- NOTE | 2024-01-17 09:19 | PCM.PN.GU ---
Subjective Subjective 83-year-old female with extensive amount of cancer in her bladder superficial disease invasive only to the lamina propria no muscle invasion pathology report reviewed. Her hemoglobin is dropped down to 6.0, she is tolerating this low hemoglobin but the plan today is to give her 2 units of blood. Apparently yesterday she was going to get hemodialysis through her fistula but the fistula was not working or that they could not get the dialysis to work so she is getting a temporary dialysis catheter at this point by general surgery and I think she is can get dialyzed later today she also can get 2 units of blood per medical. She has a Dupree catheter in place is a really light pink color the nurses are still irrigating it very slowly there is no significant amount of bleeding still just a very light Peachey color in the urine we will continue irrigation until the urine goes completely clear then I can stop. She had a fairly major resection took several hours to cut out all the tumor from her bladder I did about 90% she Yomi need to come back at some point to finish up the remaining cancer in her bladder but would not let her heal from this procedure and continue to recover. She will get renal replacement therapy. Otherwise she is fairly stable she is hypertensive but this is kind of her baseline and is on many medications to control her blood pressure doing dialysis will help her blood pressure as well. I will continue to follow appreciate input and help from general surgery, medical, and nephrology in this complicated case. Objective Data Objective Data Vital Signs: Vital Signs Temp Pulse Resp BP Pulse Ox O2 Del Method O2 Flow Rate 98.1 F 74 21 H 172/65 H 95 Room Air 4 01/17/24 08:01 01/17/24 08:01 01/17/24 08:01 01/17/24 08:01 01/17/24 08:01 01/17/24 08:01 01/14/24 18:45 Oxygen Flow Rate (L/min) 4 Oxygen Delivery Method Room Air Weight: 50.8 kg Body Mass Index (BMI) 21.9 Intake & Output: Intake and Output for Last 24 Hours 01/15/24 01/16/24 01/17/24 23:59 23:59 23:59 Intake Total 1176.5 / 1176.5 200 / 200 Output Total 9400 / 9600 1700 / 2400 1900 / 1900 Balance -8223.5 / -8423.5 -1700 / -2300 -1700 / -1700 Lab / Micro Data 01/17/24 07:19 01/17/24 07:19 Labs: Laboratory Results - last 24 hr 01/16/24 07:35: Blood Type O POSITIVE, Antibody Screen NEGATIVE, Crossmatch See Detail 01/17/24 07:19: WBC 12.0 H, RBC 1.95 L, Hgb 6.0 L*, Hct 18.9 L, MCV 96.9, MCH 30.8, MCHC 31.7 L, RDW Std Deviation 61.3 H, RDW Coeff of Wiliam 17.9 H, Plt Count 90 L, MPV 10.4, Diff Path Review August, Sodium 136, Potassium 5.5 H, Chloride 107, Carbon Dioxide 19.0 L, Anion Gap 10, BUN 80 H, Creatinine 5.90 H, Estim Creat Clear Calc 5.10, Est GFR (MDRD) Af Amer 9 L, Est GFR (MDRD) Non-Af 7 L, BUN/Creatinine Ratio 13.6, Glucose 123 H, Calcium 8.1 L
[2024-01-17] MEDS: Heparin 10,000 UNITS/10 ML Vial 1000 UNITS IV (09:33)
--- NOTE | 2024-01-17 09:50 | RAD_ITS ---
EXAM: XR CHEST, 1 VIEW CLINICAL INDICATION: right dialysis line placement TECHNIQUE: Frontal view of the chest. COMPARISON: 10/03/2023. FINDINGS: LUNGS AND PLEURAL SPACES: Ill-defined interstitial infiltrates in the upper lobes, right more than left. No pleural effusion. No pneumothorax. HEART: Unremarkable. Cardiac silhouette not enlarged. MEDIASTINUM: Central airways and mediastinal contour are unremarkable. BONES/JOINTS: Unremarkable. No acute fracture. SOFT TISSUES: Unremarkable. TUBES, LINES AND DEVICES: Right IJ approach dialysis catheter tip is in the distal SVC. RAD/CXR for Line Placement IMPRESSION: 1. No pneumothorax following right IJ approach dialysis catheter placement, tip is in the distal SVC. 2. Interstitial infiltrates in the upper lobes, right more than left worrisome for interstitial pneumonitis. Electronically Signed: Adam Gil MD at 10:24 EDT ,
[2024-01-17] MEDS: oxyCODONE 5 MG Tablet PO ×2 (09:56→20:27)
[2024-01-17] MEDS: PureFlow B 2K Dialysis Soln 1 BAG 6 BAG PF (11:30)
[2024-01-17] MEDS: 0.9% Normal Saline 1,000 ML IV.SOLN. 1000 ML OPERA.SITE (11:30)
--- NOTE | 2024-01-17 12:07 | PCM.PN.HOSP ---
Reason for Visit Reason for Visit: Diagnoses Malignant neoplasm of unspecified kidney, except renal pelvis (01/14/24) Malignant neoplasm of bladder, unspecified (01/14/24) Essential (primary) hypertension (01/14/24) Hypertensive crisis, unspecified (01/14/24) End stage renal disease (01/14/24) Dependence on renal dialysis (01/14/24) Subjective Subjective Saw patient at bedside this morning. Right IJ HD catheter in place treated this morning and site appeared clean and dry. Patient appeared similar to yesterday. Stated she was fatigued and had some mild right neck pain. She continued to report ongoing back pain, similar to previous days. No other new concerns today. Objective Data Objective Data Vital Signs: Vital Signs Temp Pulse Resp BP Pulse Ox O2 Del Method O2 Flow Rate 97.3 F L 74 23 H 178/65 H 95 Room Air 4 01/17/24 11:00 01/17/24 11:30 01/17/24 11:30 01/17/24 11:30 01/17/24 11:30 01/17/24 11:30 01/14/24 18:45 Oxygen Flow Rate (L/min) 4 Oxygen Delivery Method Room Air Weight: 53.524 kg Body Mass Index (BMI) 23.1 Intake & Output: Intake and Output for Last 24 Hours 01/15/24 01/16/24 01/17/24 23:59 23:59 23:59 Intake Total 1176.5 / 1176.5 200 / 200 Output Total 9400 / 9600 1700 / 2400 3400 / 3400 Balance -8223.5 / -8423.5 -1700 / -2300 -3200 / -3200 Lab / Micro Data 01/17/24 07:19 01/17/24 07:19 Labs: Laboratory Results - last 24 hr 01/16/24 07:35: Blood Type O POSITIVE, Antibody Screen NEGATIVE, Crossmatch See Detail 01/17/24 07:19: WBC 12.0 H, RBC 1.95 L, Hgb 6.0 L*, Hct 18.9 L, MCV 96.9, MCH 30.8, MCHC 31.7 L, RDW Std Deviation 61.3 H, RDW Coeff of Wiliam 17.9 H, Plt Count 90 L, MPV 10.4, Diff Path Review May foll, Sodium 136, Potassium 5.5 H, Chloride 107, Carbon Dioxide 19.0 L, Anion Gap 10, BUN 80 H, Creatinine 5.90 H, Estim Creat Clear Calc 5.10, Est GFR (MDRD) Af Amer 9 L, Est GFR (MDRD) Non-Af 7 L, BUN/Creatinine Ratio 13.6, Glucose 123 H, Calcium 8.1 L Radiography Diagnostic Testing: Radiology Impression Chest X-Ray 01/17/24 09:50 IMPRESSION: 1. No pneumothorax following right IJ approach dialysis catheter placement, tip is in the distal SVC. 2. Interstitial infiltrates in the upper lobes, right more than left worrisome for interstitial pneumonitis. Electronically Signed: Adam Gil MD at 10:24 EDT , Physical Exam Const alert, oriented x3 and no apparent distress Constitutional Narrative: Elderly female, somewhat chronically ill-appearing and thin, mildly fatigued appearing, otherwise laying fairly comfortably in bed, conversing normally, in no acute distress. Stable. General Appearance: cooperative HEENT normocephalic, head/scalp atraumatic, hearing grossly normal bilaterally, nasal mucous membranes and turbinates normal and moist oral mucous membranes Eyes PERRL, EOMs intact bilaterally and conjunctivae normal Neck full ROM Neck Narrative: Right IJ HD catheter in place, site appears clean and dry. Chest inspection of chest normal Resp normal respiratory effort, normal air movement, no use of accessory muscles and clear to auscultation bilaterally Cardio regular rate, regular rhythm, no murmurs and peripheral pulses 2+ throughout GI normal to inspection, nondistended, normoactive bowel sounds, soft to palpation, non-tender and non-distended Negative for no CVA tenderness Narrative: CBI ongoing with bright reddish fluid noted in catheter bag. Bladder / Kidney Exam: bladder normal to palpation Back/Spine normal ROM Extremity normal to inspection, full ROM and no pedal edema Skin no rashes or lesions noted Neuro no focal motor deficits and no sensory deficits noted Speech: speech normal Psych mental status grossly normal Assessment & Plan Assessment/Plan (1) Metastatic renal cell carcinoma: (2) Bladder cancer: (3) Accelerated hypertension: (4) ESRD on hemodialysis: PLAN: Plan Patient is an 83-year-old female who presented to [facility] on 01/14/2024 for planned cystoscopy with transurethral resection of bladder tumors by urology. Medicine consulted postoperatively for medical management. 1. 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 Urology primary. S/p cystoscopy with transurethral resection of multiple bladder tumors by urology on 01/13. Had significant blood loss noted by urology and was admitted after procedure for that reason. Continuous bladder irrigation was turned off on 01/15 but was then restarted on 01/16 as patient was continuing to have bloody output from her catheter. Transfusing as noted below. Further recommendations per urology. 2. Postoperative hypotension, resolved; history of resistant hypertension ? Noted to have postoperative hypotension and placed in the ICU on admission. Resolved with only small fluid bolus and hypertensive on hospital day 2. On significant home regimen including Coreg, clonidine patch, hydralazine, lisinopril and nifedipine. Home regimen restarted on hospital day 2 with reduced Coreg dose of 25 mg twice daily with good control of blood pressure. Blood pressure remaining stable on this regimen. 3. Acute chronic anemia secondary to postoperative blood loss ? Hemoglobin 12.5 in October and appears this was her baseline, though she notably has had very low hemoglobin values as of earlier this year. Hemoglobin stable postoperatively around 9- but then dropped to 6.2 on 01/15. This is presumed secondary to blood loss from her procedure. Hemodynamically stable and asymptomatic with this blood loss. Plan was to give 2 units of blood with dialysis on 01/15 but unfortunately dialysis could not be run as noted below. Repeat hemoglobin 6.0 on 01/16 and remained stable. Will give 2 units of blood with dialysis today and repeat CBC tomorrow. 4. ESRD on HD ? Nephrology following. On HD Friday. Unfortunately AV fistula could not be accessed on Monday 01/15. Temporary right IJ HD catheter placed by general surgery on 01/16 and plan is for HD today. Monitor daily BMP. 5. Malnutrition ruled out ? Nutrition evaluated. Malnutrition ruled out on admission as patient does not meet criteria. However, patient with active cancer as noted above and nutrition added dietary supplement for increased protein intake. 6. Recent history of episodic altered mental status ? Hospitalized here in 08/2023 for this. Neurology followed and there was concern patient's symptoms could be secondary to a paraneoplastic syndrome. Patient ultimately was transferred to [facility] for further evaluation. Unclear if patient received IVIG versus plasmapheresis there but patient notably stable off steroids prior to this admission. Continue outpatient follow-up. 7. Chronic debility ? PT/OT/case management following. Planning for home on discharge with family plus or minus HHC. Chronic medical conditions: ? GERD: Continue home PPI. ? Hypothyroidism: Continue home Synthroid. ? Hyperlipidemia: Continue statin. ? Anxiety/depression: Continue home mirtazapine. DVT prophylaxis: SCDs Total clinical time spent by myself addressing the patient's medical issues, reviewing all the data, and collaborating with patient's care team: 35 minutes. Charges/Coding Visit Charges Inpatient E&M: 21094 Subs Hosp L2
--- NOTE | 2024-01-17 12:15 | CON.PCM.SX_ITS ---
Assessment & Plan Assessment/Plan (1) ESRD on hemodialysis: PLAN: The patient is an 83-year-old female who is on hemodialysis for end-stage renal failure. Her fistula was not working consistently to allow further hemodialysis and so a temporary dialysis catheter was recommended by hospital medicine. A surgical consult was placed. A right IJ temporary dialysis catheter was placed under ultrasound guidance today without difficulty. Post procedure chest x-ray shows no pneumothorax and the catheter appears to be insufficient positioning. Both ports allegra and flushed easily. HPI Consult Data Date of Consult: 01/17/24 HPI Narrative Reason for Consultation: Need for temporary dialysis catheter HPI Narrative: MONA ESTRELLA, is a 83 F who underwent recent bladder tumor resection surgery. She also has a history of renal failure and is receiving hemodialysis 3 times per week. She apparently has a fistula which recently stopped working appropriately and so a temporary dialysis catheter placement has been requested to continue dialysis and also to give blood transfusion as her current hemoglobin is in the range of 6. We do lengthy discussion as far as the procedure itself, including the risks, benefits, and alternatives. She wished to proceed. A consent form was signed by the patient after this discussion. [facility] [place] Medical History History of echocardiogram Wears glasses Post-menopausal Cancer Anxiety History of steroid therapy Walker as ambulation aid Low iron High cholesterol Injury of head and neck Syncope Falls Non-smoker ESRD on dialysis Heart murmur Mitral regurgitation Hypothyroidism Vertigo Cardiomyopathy Sjogren syndrome with inflammatory arthritis Arthritis Hyperlipidemia Type 2 diabetes mellitus CKD (chronic kidney disease) stage 5, GFR less than 15 ml/min Bilateral lower extremity edema Macular degeneration Lumbar spinal stenosis Glaucoma Heart failure Osteoporosis Thyroid disease Gastric reflux Hypertension Hx of fracture of wrist Rheumatoid arthritis Kidney failure Cancer Anemia Home Medications ?Medication ?Instructions ?Recorded ?Last Taken ?Type levothyroxine 25 mcg tablet 25 mcg PO DAILY thryoid 06/13/22 01/14/24 History nifedipine 60 mg tablet,extended 60 mg PO BID BLOOD PRESSURE 07/16/23 01/14/24 History release latanoprost 0.005 % eye drops 1 drp EACH EYE QPM glaucoma 09/06/23 Unknown History lisinopril 20 mg tablet 20 mg PO BID hypertension 09/06/23 01/14/24 History atorvastatin 10 mg tablet 10 mg PO DAILY #90 tabs 11/07/23 Unknown Rx clonidine HCl 0.1 mg tablet 0.1 mg PO Q6H PRN hypertensive 11/07/23 Unknown History emergency hydralazine 100 mg tablet 100 mg PO Q8H hypertension 11/07/23 01/14/24 History mirtazapine 7.5 mg tablet 7.5 mg PO QHS 11/07/23 Unknown History pantoprazole 40 mg tablet,delayed 40 mg PO BID 11/07/23 Unknown History release clonidine 0.1 mg/24 hr weekly 1 patch transdermal ROLON 12/09/23 Unknown History transdermal patch carvedilol 25 mg tablet 50 mg PO BID 12/31/23 01/14/24 History Allergy/AdvReac Type Severity Reaction Status Date / Time beef derived (bovine) Allergy Unknown PT UNABLE Verified 01/14/24 13:50 TO RESPOND-NEEDS F/U Pork/Porcine Containing Allergy Unknown PT UNABLE Verified 01/14/24 13:50 Products TO RESPOND-NEEDS F/U adalimumab (From Humira) Allergy Hives Verified 01/14/24 13:50 Family History Mother Heart disease Hypertension Osteoporosis Father CVA (cerebral vascular accident) Hypertension Surgical History History of surgery Hx of esophagogastroduodenoscopy H/O transurethral resection of bladder tumor (TURBT) Hx of colonoscopy S/P total knee arthroplasty S/P vein stripping S/P partial hysterectomy History of bladder surgery History of nephrectomy Social History household members: family Smoking Status: Never smoker alcohol intake: never substance use type: does not use ROS Eyes Eyes: Reports systems reviewed and no addt'l complaints, except as documented ENT HEENT: Reports systems reviewed and no addt'l complaints, except as documented Cardiovascular Cardiovascular: Reports systems reviewed and no addt'l complaints, except as documented Respiratory/Chest Respiratory/Chest: Reports systems reviewed and no addt'l complaints, except as documented Gastrointestinal Gastrointestinal: Reports systems reviewed and no addt'l complaints, except as documented Physical Exam Const alert, oriented x3 and no apparent distress General Appearance: cooperative HEENT normocephalic Eyes PERRL Neck full ROM and supple Neck Narrative: Procedure note: After discussion regarding right IJ temporary dialysis catheter placement, patient signed consent form to proceed. Procedure was performed in the ICU under local anesthetic. Ultrasound was used to identify the right IJ vein prior to prepping and draping. Once this was successfully identified the patient was positioned such that her head was turned to the left. The right side of the neck and upper chest were then prepped and draped in the usual sterile manner. Sterile gowns and drapes were utilized throughout the entire procedure. The ultrasound probe was placed in a sterile cover and was used to again identify the right internal jugular vein. This was immediately overlying the right carotid artery. Next, under ultrasound visualization, the right IJ vein was accessed using supplied needle and syringe. Prior to doing so lidocaine was injected into the overlying skin. The blood return was a dark red venous appearing nonpulsatile blood flow. The guidewire was then threaded through the aperture in the needle. There was some ectopy as the wire was advanced. This was then withdrawn slightly until ectopy ceased. Next a #11 blade was then used to make a small skin incision superficially. The 2 dilators were then threaded over the guidewire sequentially and were advanced without difficulty. Finally the 12 Persian temporary dialysis catheter was then threaded over the guidewire and advanced down to its hub. The guidewire was then removed leaving the dialysis catheter in place. Both ports were flushed and allegra easily. Again there was dark red venous appearing blood return. Caps were applied to each end of the tubing. The catheter was then flushed with heparin. The catheter was then sutured to the skin using the supplied suture. A sterile dressing was then applied. Patient tolerated the procedure well. A postprocedure chest x-ray was performed and showed no pneumothorax and the catheter appeared to be in satisfactory positioning. An order was placed to nursing stating that the catheter was okay to use. General: normal visual inspection Chest inspection of chest normal Lab / Micro Data 01/17/24 07:19 01/17/24 07:19 Labs: Laboratory Results - last 24 hr 01/16/24 07:35: Blood Type O POSITIVE, Antibody Screen NEGATIVE, Crossmatch See Detail 01/17/24 07:19: WBC 12.0 H, RBC 1.95 L, Hgb 6.0 L*, Hct 18.9 L, MCV 96.9, MCH 30.8, MCHC 31.7 L, RDW Std Deviation 61.3 H, RDW Coeff of Wiliam 17.9 H, Plt Count 90 L, MPV 10.4, Diff Path Review May foll, Sodium 136, Potassium 5.5 H, Chloride 107, Carbon Dioxide 19.0 L, Anion Gap 10, BUN 80 H, Creatinine 5.90 H, Estim Creat Clear Calc 5.10, Est GFR (MDRD) Af Amer 9 L, Est GFR (MDRD) Non-Af 7 L, BUN/Creatinine Ratio 13.6, Glucose 123 H, Calcium 8.1 L Imaging Radiology Impression Chest X-Ray 01/17/24 09:50 IMPRESSION: 1. No pneumothorax following right IJ approach dialysis catheter placement, tip is in the distal SVC. 2. Interstitial infiltrates in the upper lobes, right more than left worrisome for interstitial pneumonitis. Electronically Signed: Adam Gil MD at 10:24 EDT , Procedure Criteria Type of Procedure Procedure Type: Elective (Right IJ temporary dialysis catheter placement) Elective Risks - COVID COVID Risk Discussion: The surgeon/proceduralist and patient have discussed in detail the risk of exposure to and/or potential harm posed by the COVID-19 virus with having a surgery/procedure at this time versus the risk of delaying the surgery/procedure. It is not possible to know either the risk of delaying the surgery or procedure or chance of getting an infection with perfect accuracy, but a joint decision was made between the patient and the surgeon/proceduralist to proceed at this time with the scheduled surgery/procedure as indicated on the consent form. Charges/Coding Multi Select Codes Hospitalists' Procedures Procedures: 24657 Insert Non-tunnel CV Cath (Insertion of right IJ temporary dialysis catheter under ultrasound guidance), 15463 US Guide Vascular Access and Other Procedure - See Report ([id number])
[2024-01-17] MEDS: 0.9% Saline Lock 10 ML Syringe IV ×2 (12:36→15:10)
[2024-01-17] MEDS: Heparin 10,000 UNITS/10 ML Vial IV (15:10)
[2024-01-17] MEDS: cloNIDine HCl 0.1 MG Tablet PO (15:14)
[2024-01-17] MEDS: hydrALAZINE 20 MG/ML Vial 10 MG IV (15:14)
--- NOTE | 2024-01-17 15:48 | PCM.PN.REN ---
Subjective Subjective had temp HD catheter placed HD today 3.6L Objective Data Objective Data Vital Signs: Vital Signs Temp Pulse Resp BP Pulse Ox O2 Del Method O2 Flow Rate 98 F 92 26 H 204/89 H 96 Room Air 4 01/17/24 14:55 01/17/24 15:32 01/17/24 14:55 01/17/24 15:32 01/17/24 14:55 01/17/24 15:07 01/14/24 18:45 Oxygen Flow Rate (L/min) 4 Oxygen Delivery Method Room Air Weight: 53.07 kg Body Mass Index (BMI) 22.9 Intake & Output: Intake and Output for Last 24 Hours 01/15/24 01/16/24 01/17/24 23:59 23:59 23:59 Intake Total 1176.5 / 1176.5 202 / 202 Output Total 9400 / 9600 1700 / 2400 7100 / 7100 Balance -8223.5 / -8423.5 -1700 / -2300 -6898 / -6898 Lab / Micro Data 01/17/24 07:19 01/17/24 07:19 Labs: Laboratory Results - last 24 hr 01/16/24 07:35: Blood Type O POSITIVE, Antibody Screen NEGATIVE, Crossmatch See Detail 01/17/24 07:19: WBC 12.0 H, RBC 1.95 L, Hgb 6.0 L*, Hct 18.9 L, MCV 96.9, MCH 30.8, MCHC 31.7 L, RDW Std Deviation 61.3 H, RDW Coeff of Wiliam 17.9 H, Plt Count 90 L, MPV 10.4, Diff Path Review August, Sodium 136, Potassium 5.5 H, Chloride 107, Carbon Dioxide 19.0 L, Anion Gap 10, BUN 80 H, Creatinine 5.90 H, Estim Creat Clear Calc 5.10, Est GFR (MDRD) Af Amer 9 L, Est GFR (MDRD) Non-Af 7 L, BUN/Creatinine Ratio 13.6, Glucose 123 H, Calcium 8.1 L Radiography Diagnostic Testing: Radiology Impression Chest X-Ray 01/17/24 09:50 IMPRESSION: 1. No pneumothorax following right IJ approach dialysis catheter placement, tip is in the distal SVC. 2. Interstitial infiltrates in the upper lobes, right more than left worrisome for interstitial pneumonitis. Electronically Signed: Adam Gil MD at 10:24 EDT , Physical Exam Narrative no obvious distress no pallor no icterus no JVD s1s2 no murmurs lungs clear abdomen soft no organomegaly no edema +right IJ vas cath Assessment & Plan Assessment/Plan (1) ESRD on hemodialysis: PLAN: On hemodialysis Friday, Friday, Friday. Has a left arm AV fistula for access which is clotted off HD via right temp vas cath -had HD today, UF 3.6L Hyperkalemia. -2k bath Anemia. -s/p blood transfusion today discussed with LIZETTE
[2024-01-17] MEDS: Latanoprost 0.005% 1 Bottle 1 DRP EACH EYE (21:59)
[2024-01-17] MEDS: Mirtazapine 15 MG Tablet 7.5 MG PO (22:01)
[2024-01-17] MEDS: Atorvastatin Calcium 10 MG Tablet PO (22:05)
[2024-01-18] VITALS (12 sets, daily range): BP systolic 152–190; BP diastolic 59–73; PULSE 69–90; RESP 16–30; TEMP 36.1–36.6; O2SAT 96–98; BMI 21.6
[2024-01-18] MEDS: cloNIDine HCl 0.1 MG Patch TD (06:41)
[2024-01-18] MEDS: hydrALAZINE 50 MG Tablet 100 MG PO ×3 (06:43→20:48)
[2024-01-18] MEDS: Levothyroxine 25 MCG TABLET PO (06:43)
[2024-01-18] MEDS: Docusate Sodium 100 MG Capsule 200 MG PO ×2 (07:59→21:19)
[2024-01-18] MEDS: Lisinopril 20 MG Tablet PO ×2 (08:00→20:47)
[2024-01-18] MEDS: NIFEdipine 60 MG Tablet PO ×2 (08:00→20:49)
[2024-01-18] MEDS: Pantoprazole Sodium 40 MG Tablet PO ×2 (08:00→20:47)
[2024-01-18] MEDS: Carvedilol 25 MG Tablet PO ×2 (08:02→21:19)
[2024-01-18 08:50] LABS: Hemoglobin 9.7 g/dL (12.0-15.0); Mean Corp Hgb Conc 32.3 g/dL (32-36); Mean Corpuscular Volume 89.8 fL (81-99); Mean Platelet Vol. 11.6 fl (6.2-12.0); POSITIVE COUNT YES; POSITIVE MORPHOLOGY YES; Platelet Count 76 K/mm3 (150-450); RBC Distribution Width CV 20.2 % (11.6-14.6); RBC Distribution Width SD 63.5 fl (35.1-43.9); Red Blood Count 3.34 M/mm3 (4.2-5.4); White Blood Count 9.6 K/mm3 (4.4-11.0)
[2024-01-18 08:57] LABS: Scan Indicated on CBC? Y/N YES- FLAGS NOTED
[2024-01-18 09:26] LABS: Differential Comment S
[2024-01-18 09:48] LABS: Anion Gap 11 (5-15); BUN 48 mg/dL (7-18); BUN/Creat Ratio 11.1 RATIO (10-20); Calcium,Total 8.9 mg/dL (8.5-10.1); Chloride 105 mmol/L (98-107); Creatinine, Serum 4.34 mg/dL (0.55-1.02); EST Glomerular Filtration Rate 10 mL/min (>60); Est Glom Filt Rate - Afr Amer 13 mL/min (>60); Estimated Creatinine Clearance 6.93 ml/min; Glucose 96 mg/dL (74-106); Potassium 4.3 mmol/L (3.5-5.1); Sodium Level 138 mmol/L (136-145)
--- NOTE | 2024-01-18 10:21 | PN.HOSP_ITS ---
Reason for Visit Reason for Visit: Diagnoses Malignant neoplasm of unspecified kidney, except renal pelvis (01/14/24) Malignant neoplasm of bladder, unspecified (01/14/24) Essential (primary) hypertension (01/14/24) Hypertensive crisis, unspecified (01/14/24) End stage renal disease (01/14/24) Dependence on renal dialysis (01/14/24) Subjective Subjective Saw patient at bedside this morning. Patient appeared slightly less fatigued today compared to yesterday. She had dialysis yesterday and tolerated this without issue. Also had 2 units of blood transfused with dialysis and repeat hemoglobin today was 9.7, much improved from yesterday. CBI was still running when I saw her and the output in the urine bag appeared similar to yesterday. No new concerns today. Objective Data Objective Data Vital Signs: Vital Signs Temp Pulse Resp BP Pulse Ox O2 Del Method O2 Flow Rate 97.9 F 87 16 183/73 H 98 Room Air 4 01/18/24 05:34 01/18/24 08:00 01/18/24 08:00 01/18/24 08:00 01/18/24 08:00 01/18/24 08:53 01/14/24 18:45 Oxygen Flow Rate (L/min) 4 Oxygen Delivery Method Room Air Weight: 49.9 kg Body Mass Index (BMI) 21.6 Intake & Output: Intake and Output for Last 24 Hours 01/16/24 01/17/24 01/18/24 23:59 23:59 23:59 Intake Total 402 / 402 50 / 50 Output Total 1700 / 2400 16899 / 57768 30046 / 04808 Balance -1700 / -2300 -74130 / -67657 -66723 / -40340 Lab / Micro Data 01/18/24 08:10 01/18/24 08:10 Labs: Laboratory Results - last 24 hr 01/16/24 07:35: Blood Type O POSITIVE, Antibody Screen NEGATIVE, Crossmatch See Detail 01/18/24 08:10: WBC 9.6, RBC 3.34 L, Hgb 9.7 L, Hct 30.0 L, MCV 89.8 D, MCH 29.0, MCHC 32.3, RDW Std Deviation 63.5 H, RDW Coeff of Wiliam 20.2 H, Plt Count 76 L, MPV 11.6, Differential Comment S, Sodium 138, Potassium 4.3, Chloride 105, Carbon Dioxide 22.0, Anion Gap 11, BUN 48 H, Creatinine 4.34 H, Estim Creat Clear Calc 6.93, Est GFR (MDRD) Af Amer 13 L, Est GFR (MDRD) Non-Af 10 L, BUN/Creatinine Ratio 11.1, Glucose 96, Calcium 8.9 Radiography Diagnostic Testing: Radiology Impression Chest X-Ray 01/17/24 09:50 IMPRESSION: 1. No pneumothorax following right IJ approach dialysis catheter placement, tip is in the distal SVC. 2. Interstitial infiltrates in the upper lobes, right more than left worrisome for interstitial pneumonitis. Electronically Signed: Adam Gil MD at 10:24 EDT , Physical Exam Const alert, oriented x3 and no apparent distress Constitutional Narrative: Elderly female, somewhat chronically ill-appearing and thin, mildly fatigued appearing but improved today, otherwise laying fairly comfortably in bed, conversing normally, in no acute distress. General Appearance: cooperative HEENT normocephalic, head/scalp atraumatic, hearing grossly normal bilaterally, nasal mucous membranes and turbinates normal and moist oral mucous membranes Eyes PERRL, EOMs intact bilaterally and conjunctivae normal Neck full ROM Neck Narrative: Right IJ HD catheter in place, site appears clean and dry. Chest inspection of chest normal Resp normal respiratory effort, normal air movement, no use of accessory muscles and clear to auscultation bilaterally Cardio regular rate, regular rhythm, no murmurs and peripheral pulses 2+ throughout GI normal to inspection, nondistended, normoactive bowel sounds, soft to palpation, non-tender and non-distended Negative for no CVA tenderness Narrative: CBI ongoing with bright reddish fluid noted in catheter bag. Bladder / Kidney Exam: bladder normal to palpation Back/Spine normal ROM Extremity normal to inspection, full ROM and no pedal edema Skin no rashes or lesions noted Neuro no focal motor deficits and no sensory deficits noted Speech: speech normal Psych mental status grossly normal Assessment & Plan Assessment/Plan (1) Metastatic renal cell carcinoma: (2) Bladder cancer: (3) Accelerated hypertension: (4) ESRD on hemodialysis: PLAN: Plan Patient is an 83-year-old female who presented to [facility] on 01/14/2024 for planned cystoscopy with transurethral resection of bladder tumors by urology. Medicine consulted postoperatively for medical management. 1. 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 Urology primary. S/p cystoscopy with transurethral resection of multiple bladder tumors by urology on 01/13. Had significant blood loss noted by urology and was admitted after procedure for that reason. Continuous bladder irrigation was turned off on 01/15 but was then restarted on 01/16 as patient was continuing to have bloody output from her catheter. Further recommendations per urology. Appears that other issues have stabilized as of 01/17; once okay from urology standpoint, patient should be ready for discharge. 2. Postoperative hypotension, resolved; history of resistant hypertension ? Noted to have postoperative hypotension and placed in the ICU on admission. Resolved with only small fluid bolus and hypertensive on hospital day 2. On significant home regimen including Coreg, clonidine patch, hydralazine, lisinopril and nifedipine. Home regimen restarted on hospital day 2 with reduced Coreg dose of 25 mg twice daily with good control of blood pressure. Blood pressure has been slightly high, increased to Coreg 37.5 twice daily on 01/17. 3. Acute chronic anemia secondary to postoperative blood loss ? Hemoglobin 12.5 in October and appears this was her baseline, though she notably has had very low hemoglobin values as of earlier this year. Hemoglobin stable postoperatively around 9-10 but then dropped to 6.2 on 01/15. This is presumed secondary to blood loss from her procedure. Hemodynamically stable and asymptomatic with this blood loss. Plan was to give 2 units of blood with dialysis on 01/15 but unfortunately dialysis could not be run as noted below. Repeat hemoglobin 6.0 on 01/16 and remained stable. Given 2 units of blood with dialysis on 01/16, repeat hemoglobin 9.7 on 01/17. Continue to monitor CBC daily but patient likely okay for discharge in the next 1 to 2 days. 4. ESRD on HD ? Nephrology following. On HD Friday. Unfortunately AV fistula could not be accessed on Monday 01/15. Temporary right IJ HD catheter placed by general surgery on 01/16 and had HD run on 01/16 without issue. If discharged by tomorrow, can likely go back to HD center for further dialysis sessions and if AV fistula can be accessed, temporary right IJ catheter can be removed. 5. Malnutrition ruled out ? Nutrition evaluated. Malnutrition ruled out on admission as patient does not meet criteria. However, patient with active cancer as noted above and nutrition added dietary supplement for increased protein intake. 6. Recent history of episodic altered mental status ? Hospitalized here in 08/2023 for this. Neurology followed and there was concern patient's symptoms could be secondary to a paraneoplastic syndrome. Patient ultimately was transferred to [facility] for further evaluation. Unclear if patient received IVIG versus plasmapheresis there but patient notably stable off steroids prior to this admission. Continue outpatient follow-up. 7. Chronic debility ? PT/OT/case management following. Planning for home on discharge with family plus or minus HHC. Chronic medical conditions: ? GERD: Continue home PPI. ? Hypothyroidism: Continue home Synthroid. ? Hyperlipidemia: Continue statin. ? Anxiety/depression: Continue home mirtazapine. DVT prophylaxis: SCDs Total clinical time spent by myself addressing the patient's medical issues, reviewing all the data, and collaborating with patient's care team: 35 minutes. Charges/Coding Visit Charges Inpatient E&M: 17535 Subs Hosp L2
--- NOTE | 2024-01-18 10:53 | PCM.PN.SRG ---
Subjective Subjective Patient doing well this morning. Right IJ temporary dialysis catheter placed yesterday morning. She underwent hemodialysis yesterday without issue according to the chart. She denies any issues or problems this morning Objective Data Objective Data Vital Signs: Vital Signs Temp Pulse Resp BP Pulse Ox O2 Del Method O2 Flow Rate 97.9 F 87 16 183/73 H 98 Room Air 4 01/18/24 05:34 01/18/24 08:00 01/18/24 08:00 01/18/24 08:00 01/18/24 08:00 01/18/24 08:53 01/14/24 18:45 Oxygen Flow Rate (L/min) 4 Oxygen Delivery Method Room Air Weight: 110 lb 0.171 oz Body Mass Index (BMI) 21.6 Intake & Output: Intake and Output for Last 24 Hours 01/16/24 01/17/24 01/18/24 23:59 23:59 23:59 Intake Total 402 / 402 50 / 50 Output Total 1700 / 2400 59621 / 20244 42155 / 11015 Balance -1700 / -2300 -75100 / -04163 -13868 / -88665 Lab / Micro Data 01/18/24 08:10 01/18/24 08:10 Labs: Laboratory Results - last 24 hr 01/16/24 07:35: Blood Type O POSITIVE, Antibody Screen NEGATIVE, Crossmatch See Detail 01/18/24 08:10: WBC 9.6, RBC 3.34 L, Hgb 9.7 L, Hct 30.0 L, MCV 89.8 D, MCH 29.0, MCHC 32.3, RDW Std Deviation 63.5 H, RDW Coeff of Wiliam 20.2 H, Plt Count 76 L, MPV 11.6, Differential Comment S, Sodium 138, Potassium 4.3, Chloride 105, Carbon Dioxide 22.0, Anion Gap 11, BUN 48 H, Creatinine 4.34 H, Estim Creat Clear Calc 6.93, Est GFR (MDRD) Af Amer 13 L, Est GFR (MDRD) Non-Af 10 L, BUN/Creatinine Ratio 11.1, Glucose 96, Calcium 8.9 Physical Exam Narrative She is alert and oriented x 3. No acute distress. Right sided IJ dialysis catheter in place. No evidence of bleeding. Assessment & Plan Assessment/Plan (1) ESRD on hemodialysis: PLAN: Patient is an 83-year-old female with end-stage renal failure. Temporary dialysis catheter was placed in right IJ yesterday she is doing well today. There were no issues with dialysis yesterday. Will sign off from a surgical standpoint. Please call if any questions or concerns arise. Charges/Coding Visit Charges Inpatient E&M: 34093 Subs Hosp L2
--- NOTE | 2024-01-18 14:33 | PCM.PN.GU ---
Subjective Subjective Patient stable, on dialysis, will try to slow down CBI today to see if and get the stop no signs of bleeding. Probably will need to go home with a catheter once all the bleeding is stopped and she is stabilized might have to go to rehab. Objective Data Objective Data Vital Signs: Vital Signs Temp Pulse Resp BP Pulse Ox O2 Del Method O2 Flow Rate 97.9 F 86 16 173/71 H 98 Room Air 4 01/18/24 05:34 01/18/24 13:46 01/18/24 08:00 01/18/24 13:46 01/18/24 08:00 01/18/24 08:53 01/14/24 18:45 Oxygen Flow Rate (L/min) 4 Oxygen Delivery Method Room Air Weight: 49.9 kg Body Mass Index (BMI) 21.6 Intake & Output: Intake and Output for Last 24 Hours 01/16/24 01/17/24 01/18/24 23:59 23:59 23:59 Intake Total 402 / 402 50 / 50 Output Total 1700 / 2400 90484 / 03039 46093 / 61852 Balance -1700 / -2300 -14923 / -01973 -73650 / -30639 Lab / Micro Data 01/18/24 08:10 01/18/24 08:10 Labs: Laboratory Results - last 24 hr 01/16/24 07:35: Crossmatch See Detail 01/18/24 08:10: WBC 9.6, RBC 3.34 L, Hgb 9.7 L, Hct 30.0 L, MCV 89.8 D, MCH 29.0, MCHC 32.3, RDW Std Deviation 63.5 H, RDW Coeff of Wiliam 20.2 H, Plt Count 76 L, MPV 11.6, Differential Comment S, Sodium 138, Potassium 4.3, Chloride 105, Carbon Dioxide 22.0, Anion Gap 11, BUN 48 H, Creatinine 4.34 H, Estim Creat Clear Calc 6.93, Est GFR (MDRD) Af Amer 13 L, Est GFR (MDRD) Non-Af 10 L, BUN/Creatinine Ratio 11.1, Glucose 96, Calcium 8.9
[2024-01-18] MEDS: cloNIDine HCl 0.1 MG Tablet PO (16:55)
[2024-01-18] MEDS: hydrALAZINE 20 MG/ML Vial 10 MG IV (16:55)
[2024-01-18] MEDS: Latanoprost 0.005% 1 Bottle 1 DRP EACH EYE (20:46)
[2024-01-18] MEDS: Mirtazapine 15 MG Tablet 7.5 MG PO (20:47)
[2024-01-18] MEDS: Atorvastatin Calcium 10 MG Tablet PO (21:19)
[2024-01-19] VITALS (17 sets, daily range): BP systolic 161–182; BP diastolic 57–67; PULSE 68–93; RESP 16–18; TEMP 36.6–37.4; O2SAT 94–99; BMI 21.0; BMI 20.9
[2024-01-19] MEDS: hydrALAZINE 20 MG/ML Vial 10 MG IV ×2 (03:02→11:29)
[2024-01-19] MEDS: 0.9% Saline Lock 10 ML Syringe IV ×3 (03:03→12:09)
[2024-01-19] MEDS: hydrALAZINE 50 MG Tablet 100 MG PO ×3 (05:35→20:46)
[2024-01-19] MEDS: Levothyroxine 25 MCG TABLET PO (05:35)
[2024-01-19 06:11] LABS: Hematocrit 27.2 % (37-47); Hemoglobin 8.8 g/dL (12.0-15.0); Mean Corp Hgb Conc 32.4 g/dL (32-36); Mean Corpuscular Hgb 29.3 pg (27.0-32.0); Mean Corpuscular Volume 90.7 fL (81-99); POSITIVE COUNT YES; Platelet Count 69 K/mm3 (150-450); RBC Distribution Width CV 19.8 % (11.6-14.6); RBC Distribution Width SD 64.6 fl (35.1-43.9)
[2024-01-19 07:15] LABS: Anion Gap 11 (5-15); BUN 61 mg/dL (7-18); BUN/Creat Ratio 11.2 RATIO (10-20); Calcium,Total 8.5 mg/dL (8.5-10.1); Chloride 104 mmol/L (98-107); Creatinine, Serum 5.46 mg/dL (0.55-1.02); EST Glomerular Filtration Rate 8 mL/min (>60); Est Glom Filt Rate - Afr Amer 10 mL/min (>60); Estimated Creatinine Clearance 5.51 ml/min; Glucose 108 mg/dL (74-106); Potassium 4.7 mmol/L (3.5-5.1); Sodium Level 137 mmol/L (136-145)
--- NOTE | 2024-01-19 07:30 | PCM.PN.GU ---
Subjective Subjective Still has, slow continuous bleeding so plan for her to get dialysis today, she can have breakfast and then she is should be n.p.o. and will plan for surgery later this afternoon around 430 for a resection of the remaining tumors in her bladder with her prior bleeding and then cauterized bleed bladder really well to control bleeding. Objective Data Objective Data Vital Signs: Vital Signs Temp Pulse Resp BP Pulse Ox O2 Del Method O2 Flow Rate 97.8 F 84 18 174/63 H 98 Ambu-Bag 4 01/19/24 03:00 01/19/24 05:35 01/19/24 03:00 01/19/24 05:35 01/19/24 03:00 01/19/24 03:49 01/14/24 18:45 Oxygen Flow Rate (L/min) 4 Oxygen Delivery Method Ambu-Bag Weight: 48.7 kg Body Mass Index (BMI) 21.0 Intake & Output: Intake and Output for Last 24 Hours 01/17/24 01/18/24 01/19/24 23:59 23:59 23:59 Intake Total 402 / 402 50 / 50 Output Total 40945 / 27407 14030 / 70912 100 / 100 Balance -98395 / -10188 -01926 / -07257 -100 / -100 Lab / Micro Data 01/19/24 05:42 01/19/24 05:42 Labs: Laboratory Results - last 24 hr 01/18/24 08:10: WBC 9.6, RBC 3.34 L, Hgb 9.7 L, Hct 30.0 L, MCV 89.8 D, MCH 29.0, MCHC 32.3, RDW Std Deviation 63.5 H, RDW Coeff of Wiliam 20.2 H, Plt Count 76 L, MPV 11.6, Differential Comment S, Sodium 138, Potassium 4.3, Chloride 105, Carbon Dioxide 22.0, Anion Gap 11, BUN 48 H, Creatinine 4.34 H, Estim Creat Clear Calc 6.93, Est GFR (MDRD) Af Amer 13 L, Est GFR (MDRD) Non-Af 10 L, BUN/Creatinine Ratio 11.1, Glucose 96, Calcium 8.9 01/19/24 05:42: WBC 9.0, RBC 3.00 L, Hgb 8.8 L, Hct 27.2 L, MCV 90.7, MCH 29.3, MCHC 32.4, RDW Std Deviation 64.6 H, RDW Coeff of Wiliam 19.8 H, Plt Count 69 L, MPV 11.0, Sodium 137, Potassium 4.7, Chloride 104, Carbon Dioxide 22.0, Anion Gap 11, BUN 61 H, Creatinine 5.46 H, Estim Creat Clear Calc 5.51, Est GFR (MDRD) Af Amer 10 L, Est GFR (MDRD) Non-Af 8 L, BUN/Creatinine Ratio 11.2, Glucose 108 H, Calcium 8.5, TSH 1.270
[2024-01-19 08:26] LABS: Hemoglobin A1c 5.2 % (3.8-5.6)
[2024-01-19] MEDS: Desmopressin Acetate 40 MCG/10 ML Vial 15 MCG IV (10:10)
[2024-01-19] MEDS: Pantoprazole Sodium 40 MG Tablet PO ×2 (10:24→20:46)
[2024-01-19] MEDS: Lisinopril 20 MG Tablet PO ×2 (10:24→20:48)
[2024-01-19] MEDS: Carvedilol 25 MG Tablet PO ×2 (10:25→20:46)
[2024-01-19] MEDS: NIFEdipine 60 MG Tablet PO ×2 (10:46→20:46)
--- NOTE | 2024-01-19 11:09 | PN.RENAL_ITS ---
<Statement entered by Shu Ballesteros MD - 01/19/24 19:01> I have personally performed a face to face assessment of the patient and have reviewed the COBY Note. vascular consult for declot vs tunneled line Subjective Subjective Sitting up in bed eating breakfast. Denies any complaints. Patient reports she follows with vascular team in [place] last seen about 3 to 4 months ago. Objective Data Objective Data Vital Signs: Vital Signs Temp Pulse Resp BP Pulse Ox O2 Del Method O2 Flow Rate 98.0 F 73 16 166/58 H 98 Room Air 4 01/19/24 08:49 01/19/24 08:49 01/19/24 08:49 01/19/24 08:49 01/19/24 08:49 01/19/24 09:04 01/14/24 18:45 Oxygen Flow Rate (L/min) 4 Oxygen Delivery Method Room Air Weight: 48.7 kg Body Mass Index (BMI) 21.0 Intake & Output: Intake and Output for Last 24 Hours 01/17/24 01/18/24 01/19/24 23:59 23:59 23:59 Intake Total 402 / 402 50 / 50 Output Total 61494 / 84160 23003 / 10483 100 / 100 Balance -76276 / -52666 -66211 / -64643 -100 / -100 Lab / Micro Data 01/19/24 05:42 01/19/24 05:42 Labs: Laboratory Results - last 24 hr 01/19/24 05:42: WBC 9.0, RBC 3.00 L, Hgb 8.8 L, Hct 27.2 L, MCV 90.7, MCH 29.3, MCHC 32.4, RDW Std Deviation 64.6 H, RDW Coeff of Wiliam 19.8 H, Plt Count 69 L, MPV 11.0, Sodium 137, Potassium 4.7, Chloride 104, Carbon Dioxide 22.0, Anion Gap 11, BUN 61 H, Creatinine 5.46 H, Estim Creat Clear Calc 5.51, Est GFR (MDRD) Af Amer 10 L, Est GFR (MDRD) Non-Af 8 L, BUN/Creatinine Ratio 11.2, Glucose 108 H, Hemoglobin A1c 5.2, Calcium 8.5, TSH 1.270 Physical Exam Narrative Alert and oriented no obvious distress s1s2 no murmurs lungs clear abdomen soft no organomegaly no edema Left upper arm AV fistula very faint pulsatile thrill, no bruit +right IJ vas cath Assessment & Plan Assessment/Plan (1) ESRD on hemodialysis: PLAN: - On hemodialysis Friday, Friday, Friday. Patient has a left arm AV fistula for access which is clotted off, therefore patient had placement of temporary non-tunneled hemodialysis catheter. Last hemodialysis was on Friday. Vascular consulted for evaluation of AV access and for possible fistulogram/declot. If unable to have fistulogram/declot then patient will need tunneled hemodialysis catheter placed. Will plan for hemodialysis either today or tomorrow depending on patient's bladder surgery and vascular recommendations. Potassium and bicarb normal today. Volume status acceptable, patient on room air. Blood pressures acceptable. Hemoglobin improved status post PRBC
[2024-01-19 11:29] LABS: Pathologist Review Reviewed
[2024-01-19] MEDS: oxyCODONE 5 MG Tablet PO ×2 (12:23→20:52)
[2024-01-19] MEDS: 0.9% Normal Saline (500mL Bag) 500 ML 15 ML IV (15:53)
--- NOTE | 2024-01-19 15:59 | PCM.PN.HOSP ---
Reason for Visit Reason for Visit: Hematuria Subjective Subjective Patient is AN 83-year-old female with a history of bladder cancer who presented to the hospital as a direct admission by Dr. Soliman for ongoing issues with hematuria. She was taken initially to the OR on 01/14/2024 by urology for transurethral resection of a large bladder tumor with multiple and large sites noted. She had previously been on BCG therapy but did not tolerate the medication and ultimately ended up leaving the hospital. She then started having bleeding and was noted to have an extensive amount of papillary tumors throughout her entire bladder. Given her bleeding resection was recommended in hopes of rendering the patient is free as possible from her bladder cancer. We were consulted postoperatively for medical management. She is on chronic dialysis and follows with Dr. Reyes as an outpatient in [place]. She does dialysis on MWF and has had a left upper extremity fistula for access however fistula was not working as of Friday. Given this a temporary catheter was placed in her right IJ and this has been utilized for dialysis. Her last dialysis session was on 01/17/2024. Continuous bladder irrigation has been an ongoing thing during her hospital course and plan is for taking her back to the OR today on 01/19/2020 for for further resection and cauterization. She did have some postoperative hypotension after her first surgery which resolved with only small fluid bolus. Since her blood pressures have been elevated and her baseline. She was given 2 units of packed red blood cells for worsening anemia on 01/16/2024 and 2 units on 01/17/2024 and her hemoglobin seemingly has stabilized at this point. Objective Data Objective Data Vital Signs: Vital Signs Temp Pulse Resp BP Pulse Ox O2 Del Method O2 Flow Rate 98.2 F 73 16 164/63 H 97 Room Air 4 01/19/24 13:35 01/19/24 14:41 01/19/24 13:35 01/19/24 14:41 01/19/24 13:35 01/19/24 14:00 01/14/24 18:45 Oxygen Flow Rate (L/min) 4 Oxygen Delivery Method Room Air Weight: 48.7 kg Body Mass Index (BMI) 20.9 Intake & Output: Intake and Output for Last 24 Hours 01/17/24 01/18/24 01/19/24 23:59 23:59 23:59 Intake Total 402 / 402 50 / 50 Output Total 56824 / 29082 79549 / 08447 100 / 100 Balance -22888 / -20214 -68595 / -64661 -100 / -100 Lab / Micro Data 01/19/24 05:42 01/19/24 05:42 Labs: Laboratory Results - last 24 hr 01/17/24 07:19: Diff Path Review Reviewed 01/19/24 05:42: WBC 9.0, RBC 3.00 L, Hgb 8.8 L, Hct 27.2 L, MCV 90.7, MCH 29.3, MCHC 32.4, RDW Std Deviation 64.6 H, RDW Coeff of Wiliam 19.8 H, Plt Count 69 L, MPV 11.0, Sodium 137, Potassium 4.7, Chloride 104, Carbon Dioxide 22.0, Anion Gap 11, BUN 61 H, Creatinine 5.46 H, Estim Creat Clear Calc 5.51, Est GFR (MDRD) Af Amer 10 L, Est GFR (MDRD) Non-Af 8 L, BUN/Creatinine Ratio 11.2, Glucose 108 H, Hemoglobin A1c 5.2, Calcium 8.5, TSH 1.270 Physical Exam Const alert, oriented x3, no apparent distress and average body habitus; Negative for healthy appearing Constitutional Narrative: Elderly, Micronesian, female, lying in bed, appears comfortable, does not appear toxic HEENT head/scalp atraumatic and moist oral mucous membranes HEENT Narrative: Dentition is poor, Mallampati 2 Head and Scalp: normocephalic Resp normal respiratory effort, no retractions, no use of accessory muscles and clear to auscultation bilaterally Resp Narrative: Diminished at bases bilaterally Auscultation: Negative for rales, rhonchi or wheezes Cardio regular rate, regular rhythm, S1 normal heart sound, S2 normal heart sound, no rub, no gallops and no clicks; Negative for no murmurs Cardio Narrative: 3 out of 6 systolic murmur GI normal to inspection, nondistended, normoactive bowel sounds, soft to palpation and non-tender Extremity Extremity Narrative: Fistula in left upper extremity with no bruit or thrill, chronic trace bilateral lower extremity pitting edema with Wilder bandages in place, no clubbing or cyanosis, right IJ in place-dressing is clean dry and intact Neuro oriented x3, moves all extremities and no focal motor deficits Neuro Narrative: Generalized weakness noted with no focal deficits Speech: speech normal Psych affect normal Psych Narrative: Eye contact is good patient interacts appropriately Assessment & Plan Assessment/Plan (1) Hematuria: (2) Metastatic renal cell carcinoma: PLAN: Plan 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 -Management per urology -Previous BCG infusion but patient did not tolerate -Ongoing hematuria with continuous bladder irrigation -Plan is back to the OR today for resection of the remaining tumors in the bladder and cauterization -Has had a total of 4 units of packed red blood cells -Will continue to monitor hemoglobin and transfuse for further drop or hemoglobin less than 7 -Once hematuria has ceased should be okay for discharge Acute on chronic anemia secondary to acute blood loss in the form of hematuria -Has been transfused 4 units of packed red blood cells -Continue to monitor hemoglobin -Hemoglobin 8.8 today down from 9.7 tomorrow -Recheck hemoglobin in a.m. 1 and if any further drop will give 1 unit packed red blood cells End-stage renal disease-HD dependent -HD typically MWF -Fistula has no significant thrill or bruit and has not been nonfunctional since Friday -Continue dialysis per temporary dialysis catheter for now -Consulted vascular surgery and plan is for fistulogram on 01/21/2024 and a fistula cannot be opened up via intervention we will plan for tunneled dialysis catheter Essential hypertension -Patient with history of resistant hypertension -Continue home medications as she is currently taking -Continue to monitor -Did have some postoperative hypotension so we will need to watch for this later today History of neuro paraneoplastic syndrome -Had been on steroids previously and transferred to [facility] for IVIG versus plasmapheresis -Unclear on ultimately what she decided to do however patient's not on any steroids at this time -Monitor mental status Hyperlipidemia -Continue home statin Glaucoma -Continue home eyedrops GERD -Continue home Protonix History of rheumatoid arthritis -Patient takes nothing chronically -Continued outpatient follow-up Hypothyroidism -Continue home levothyroxine DVT prophylaxis -SCDs due to ongoing hematuria CODE STATUS Full code Charges/Coding Visit Charges Inpatient E&M: 65247 Subs Hosp L2
--- NOTE | 2024-01-19 16:28 | PRE.ANES_ITS ---
ASA Classification* ASA Classification ASA Classification: 3 Assessment & Plan Anesthesia* Anesthesia Assessment Anesthesia Assessment: Discussed sedation and/or anesthesia options, risks, benefits, and alternatives with patient/parents/legal guardian/POA. Questions invited. The patient/parents/legal guardian/POA seems to understand and agrees to proceed with anesthesia plan. Reviewed the physical assessment, medical history, allergy history and patient home medications list prior to surgery/procedure/anesthetic and documented any changes. Performed airway and anesthesia risk assessments. Anesthesia Type Anesthesia Type: General Anesthesia Focused Assessment* Temperature: 98.2 F Pulse Rate: 73 Blood Pressure: 164/63 Respiratory Rate: 16 Pulse Ox: 97 Airway Assessment Mouth opens: >3 cm Mallampati Score: II Focused Labs Anesthesia Preop lab: CBC WBC 9.0 K/mm3 (4.4-11.0) 01/19/24 05:42 RBC 3.00 M/mm3 (4.2-5.4) L 01/19/24 05:42 Hgb 8.8 g/dL (12.0-15.0) L 01/19/24 05:42 Hct 27.2 % (37-47) L 01/19/24 05:42 Plt Count 69 K/mm3 (150-450) L 01/19/24 05:42 CHEMISTRY Potassium 4.7 mmol/L (3.5-5.1) 01/19/24 05:42 Sodium 137 mmol/L (136-145) 01/19/24 05:42 Magnesium 1.8 mg/dL (1.6-2.6) 09/19/23 05:55 Phosphorus 4.6 mg/dL (2.5-4.9) 09/05/23 03:05 BUN 61 mg/dL (7-18) H 01/19/24 05:42 Creatinine 5.46 mg/dL (0.55-1.02) H 01/19/24 05:42 Glucose 108 mg/dL (74-106) H 01/19/24 05:42 POC Glucose 285 mg/dL (74-106) H 09/10/23 11:12 TSH 1.270 uIU/mL (0.358-3.740) 01/19/24 05:42 COAG PT 13.7 SECONDS (11.7-14.9) 08/04/23 12:32 Pre-Assessment Diagnosis/Proposed Procedure Planned Operative Procedure(s): Cysto,Transurethra Resec BladderTum Anesthesia History Anesthesia History - 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 When Was Last Pacemaker Check QUESTION #4 FULL TEXT: You/Your Family Experience fever (hyperthermia) with Anesthesia Last Oral Intake Last Oral intake: Last Oral Intake NPO since 10:00 01/19/24 15:37 Meds taken in AM with sips of Yes 01/19/24 15:37 water? Meds patient instructed to coreg 1025, apresoline 1440 01/19/24 15:37 take am of surgery PONV PONV - school lunch monitor: PONV - school lunch monitor Female Yes 12/31/23 08:18 HX of Motion Sickness No 12/31/23 08:18 HX of N/V After Surgery No 12/31/23 08:18 Non-Smoker Yes 12/31/23 08:18 Duration of Surgery greater Yes 12/31/23 08:18 than 60 minutes Number of Risk Factors 3 12/31/23 08:18 PONV Score Moderate Risk 12/31/23 08:18 Height & Weight Height & Weight: Anesthesia: Height & Weight Height 5 ft 01/19/24 15:37 Weight: 48.7 kg 01/19/24 15:37 Body Mass Index (BMI) 20.9 01/19/24 15:37 Respiratory Assessment Respiratory Assessment - school lunch monitor: Respiratory Tract Infection Hx - school lunch monitor Hx Respiratory Tract Infection No 01/18/24 23:03 STOP Sleep Apnea STOP Sleep Apnea - school lunch monitor: STOP Sleep Apnea - school lunch monitor Hx Hypertension Yes 01/16/24 11:32 Hx Sleep Apnea No 01/14/24 19:36 CPAP BIPAP Do you snore loudly (louder No 01/14/24 19:36 than talking or can be heard Do you often feel tired/ No 01/14/24 19:36 fatigued/ sleepy during daytime? Has anyone observed you stop No 01/14/24 19:36 breathing during sleep? STOP Results Negative 01/14/24 19:36 QUESTION #5 FULL TEXT : Do you snore loudly (louder than talking or can be heard through closed doors)? 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 Specify any problems Hx of Preganancy in last 3 No 01/14/24 19:36 Months Nurse Filling Out Transfusion [id number] 01/14/24 19:36 & Questions: Date: 01/14/24 01/14/24 19:36 Time: 19:49 01/14/24 19:36 Patient unable to answer at this time (ie. confused, unrespo /Reproduction History /Reproductive History - school lunch monitor: /Reproductive Hx- school lunch monitor Hx Now No 01/18/24 23:03 Gestational Age (in weeks): EDC: Hx Hx Para Hx Section SAB No 01/18/24 23:03 Active Medications Active Medications: Current Medications Generic Name Dose Route Start Last Admin Trade Name Freq PRN Reason Stop Dose Admin Acetaminophen 650 mg 01/14/24 14:59 01/17/24 05:51 Acetaminophen 325 Mg Tablet PO 650 mg Q6H PRN PRN Administration Pain Score 1-10 Al Hydrox/Mg Hydrox/Simethicone 30 ml 01/14/24 14:59 Mag /Aluminum/Simeth [facility] 30 Ml Oral.Susp PO Q4H PRN PRN HEARTBURN Atorvastatin Calcium 10 mg 01/15/24 22:00 01/18/24 21:19 Atorvastatin Calcium 10 Mg Tablet PO 10 mg QHS HOWARD Administration Carvedilol 25 mg 01/15/24 10:00 01/19/24 10:25 Carvedilol 25 Mg Tablet PO 25 mg BID HOWARD Administration Protocol Clonidine 0.1 mg 01/14/24 14:57 01/18/24 16:55 Clonidine Hcl 0.1 Mg Tablet PO 0.1 mg Q6H PRN Administration hypertensive emergency Protocol Clonidine HCl 0.1 mg 01/15/24 06:15 01/18/24 06:41 Clonidine Hcl 0.1 Mg Patch TD 0.1 mg ROLON HOWARD Administration Docusate Sodium 200 mg 01/14/24 22:00 01/19/24 10:24 Docusate Sodium 100 Mg Capsule PO Not Given BID HOWARD Fentanyl Citrate 25 mcg 01/14/24 21:44 01/15/24 06:02 Fentanyl 100 Mcg/2 Ml Ampul IV 25 mcg Q2H PRN PRN Administration pain 6-10 Hydralazine HCl 100 mg 01/14/24 22:00 01/19/24 14:41 Hydralazine 50 Mg Tablet PO 100 mg Q8 HOWARD Administration Hydralazine HCl 10 mg 01/19/24 03:29 01/19/24 11:29 Hydralazine 20 Mg/Ml Vial IV 10 mg Q4H PRN PRN Administration SBP GREATER THAN 160 Protocol Sodium Chloride 500 mls @ 0 mls/hr 01/19/24 15:45 01/19/24 15:53 IV 15 mls/hr .Q0M HOWARD Administration KVO Latanoprost 1 drp 01/14/24 21:00 01/18/24 20:46 Latanoprost 0.005% 1 Bottle EACH EYE 1 drp QPM HOWARD Administration Levothyroxine Sodium 25 mcg 01/15/24 06:00 01/19/24 05:35 Levothyroxine 25 Mcg Tablet PO 25 mcg DAILY@0600 HOWARD Administration Lisinopril 20 mg 01/15/24 22:00 01/19/24 10:24 Lisinopril 20 Mg Tablet PO 20 mg BID HOWARD Administration Protocol Metoclopramide HCl 10 mg 01/14/24 14:59 01/15/24 05:13 Metoclopramide 10 Mg/2 Ml Vial IV 10 mg Q8H PRN PRN Administration NAUSEA/VOMITING Mirtazapine 7.5 mg 01/14/24 22:00 01/18/24 20:47 Mirtazapine 15 Mg Tablet PO 7.5 mg QHS HOWARD Administration Nifedipine 60 mg 01/14/24 22:00 01/19/24 10:46 Nifedipine 60 Mg Tablet PO 60 mg BID HOWARD Administration Ondansetron HCl 4 mg 01/14/24 14:59 01/15/24 02:48 Ondansetron 4 Mg/2 Ml Vial IV 4 mg Q8H PRN Administration NAUSEA/VOMITING Oxycodone HCl 5 - 10 mg 01/14/24 14:59 01/19/24 12:23 Oxycodone 5 Mg Tablet PO 10 mg Q6H PRN PRN Administration Pain Score 4-10 Pantoprazole Sodium 40 mg 01/14/24 22:00 01/19/24 10:24 Pantoprazole Sodium 40 Mg Tablet PO 40 mg BID HOWARD Administration Sodium Chloride 10 - 40 ml 01/19/24 10:35 01/19/24 12:09 0.9% Saline Lock 10 Ml Syringe IV 20 ml UD PRN Administration SALINE FLUSH PFSH Medical History History of echocardiogram Wears glasses Post-menopausal Cancer Anxiety History of steroid therapy Walker as ambulation aid Low iron High cholesterol Injury of head and neck Syncope Falls Non-smoker ESRD on dialysis Heart murmur Mitral regurgitation Hypothyroidism Vertigo Cardiomyopathy Sjogren syndrome with inflammatory arthritis Arthritis Hyperlipidemia Type 2 diabetes mellitus CKD (chronic kidney disease) stage 5, GFR less than 15 ml/min Bilateral lower extremity edema Macular degeneration Lumbar spinal stenosis Glaucoma Heart failure Osteoporosis Thyroid disease Gastric reflux Hypertension Hx of fracture of wrist Rheumatoid arthritis Kidney failure Cancer Anemia Home Medications ?Medication ?Instructions ?Recorded ?Last Taken ?Type levothyroxine 25 mcg tablet 25 mcg PO DAILY thryoid 06/13/22 01/14/24 History nifedipine 60 mg tablet,extended 60 mg PO BID BLOOD PRESSURE 07/16/23 01/14/24 History release latanoprost 0.005 % eye drops 1 drp EACH EYE QPM glaucoma 09/06/23 Unknown History lisinopril 20 mg tablet 20 mg PO BID hypertension 09/06/23 01/14/24 History atorvastatin 10 mg tablet 10 mg PO DAILY #90 tabs 11/07/23 Unknown Rx clonidine HCl 0.1 mg tablet 0.1 mg PO Q6H PRN hypertensive 11/07/23 Unknown History emergency hydralazine 100 mg tablet 100 mg PO Q8H hypertension 11/07/23 01/14/24 History mirtazapine 7.5 mg tablet 7.5 mg PO QHS 11/07/23 Unknown History pantoprazole 40 mg tablet,delayed 40 mg PO BID 11/07/23 Unknown History release clonidine 0.1 mg/24 hr weekly 1 patch transdermal ROLON 12/09/23 Unknown History transdermal patch carvedilol 25 mg tablet 50 mg PO BID 12/31/23 01/14/24 History Allergy/AdvReac Type Severity Reaction Status Date / Time beef derived (bovine) Allergy Unknown PT UNABLE Verified 01/14/24 13:50 TO RESPOND-NEEDS F/U Pork/Porcine Containing Allergy Unknown PT UNABLE Verified 01/14/24 13:50 Products TO RESPOND-NEEDS F/U adalimumab (From Humira) Allergy Hives Verified 01/14/24 13:50 Family History Mother Heart disease Hypertension Osteoporosis Father CVA (cerebral vascular accident) Hypertension Surgical History History of surgery Hx of esophagogastroduodenoscopy H/O transurethral resection of bladder tumor (TURBT) Hx of colonoscopy S/P total knee arthroplasty S/P vein stripping S/P partial hysterectomy History of bladder surgery History of nephrectomy Social History household members: family Smoking Status: Never smoker alcohol intake: never substance use type: does not use Review of Systems (Anesthesia) ROS Narrative System reviewed and no additional complaints, except as documented.
[2024-01-19] MEDS: Latanoprost 0.005% 1 Bottle 1 DRP EACH EYE (20:47)
[2024-01-19] MEDS: Mirtazapine 15 MG Tablet 7.5 MG PO (20:47)
[2024-01-19] MEDS: Docusate Sodium 100 MG Capsule 200 MG PO (20:47)
[2024-01-19] MEDS: Atorvastatin Calcium 10 MG Tablet PO (20:48)
[2024-01-20] VITALS (17 sets, daily range): BP systolic 82–208; BP diastolic 60–97; PULSE 67–89; RESP 14–18; TEMP 36.1–37.3; O2SAT 95–100; BMI 21.4; BMI 20.1
[2024-01-20 04:58] LABS: Absolute Lymphocyte Count 1.85 X10^3/uL (0.83-4.51); Absolute Neutrophil Count 5.1 X10^3/uL (2.0-7.7); Basophil# 0.03 X10^3/uL; Basophil% 0.4 % (0-1); Eosinophil# 0.27 X10^3/uL; Eosinophils% 3.3 % (0-5); Hemoglobin 7.4 g/dL (12.0-15.0); Lymphocyte # 1.85 X10^3/ul (0.83-4.51); Lymphocyte % 22.4 % (19-41); Mean Corp Hgb Conc 32.2 g/dL (32-36); Mean Corpuscular Hgb 29.5 pg (27.0-32.0); Mean Corpuscular Volume 91.6 fL (81-99); Mean Platelet Vol. 11.6 fl (6.2-12.0); Monocyte# 0.85 X10^3/uL; Monocyte% 10.3 % (0-10); NRBC Flagged by Analyzer 0 % (0-5); Neutrophil # 5.13 X10^3/uL (2.7-7.7); Neutrophil % 62.1 % (47-70); POSITIVE COUNT YES; Platelet Count 60 K/mm3 (150-450); RBC Distribution Width CV 19.3 % (11.6-14.6); RBC Distribution Width SD 63.7 fl (35.1-43.9); Red Blood Count 2.51 M/mm3 (4.2-5.4); White Blood Count 8.3 K/mm3 (4.4-11.0)
[2024-01-20 05:11] LABS: Anion Gap 8 (5-15); BUN 69 mg/dL (7-18); BUN/Creat Ratio 10.6 RATIO (10-20); Chloride 102 mmol/L (98-107); Creatinine, Serum 6.48 mg/dL (0.55-1.02); EST Glomerular Filtration Rate 7 mL/min (>60); Est Glom Filt Rate - Afr Amer 8 mL/min (>60); Estimated Creatinine Clearance 4.64 ml/min; Glucose 124 mg/dL (74-106); Magnesium 1.5 mg/dL (1.6-2.6); Potassium 5.3 mmol/L (3.5-5.1); Sodium Level 133 mmol/L (136-145)
[2024-01-20] MEDS: Levothyroxine 25 MCG TABLET PO (05:28)
[2024-01-20] MEDS: hydrALAZINE 50 MG Tablet 100 MG PO ×3 (05:28→20:33)
--- NOTE | 2024-01-20 07:16 | PCM.PN.GU ---
Subjective Subjective surgery post poned no platlets avaiable at [facility]. platlets ordered, plan for surgery today fir turbt Objective Data Objective Data Vital Signs: Vital Signs Temp Pulse Resp BP Pulse Ox O2 Del Method O2 Flow Rate 98.4 F 73 16 194/67 H 97 Room Air 4 01/20/24 02:30 01/20/24 05:28 01/20/24 02:30 01/20/24 05:28 01/20/24 02:30 01/20/24 02:30 01/19/24 16:30 Oxygen Flow Rate (L/min) 4 Oxygen Delivery Method Room Air Weight: 49.8 kg Body Mass Index (BMI) 21.4 Intake & Output: Intake and Output for Last 24 Hours 01/18/24 01/19/24 01/20/24 23:59 23:59 23:59 Intake Total 50 / 50 120 / 120 Output Total 67805 / 72045 1100 / 2300 1200 / 1200 Balance -78337 / -68902 -1100 / -2180 -1080 / -1080 Lab / Micro Data 01/20/24 04:45 01/20/24 04:45 Labs: Laboratory Results - last 24 hr 01/17/24 07:19: Diff Path Review Reviewed 01/19/24 05:42: Hemoglobin A1c 5.2, TSH 1.270 01/20/24 04:45: WBC 8.3, RBC 2.51 L, Hgb 7.4 L, Hct 23.0 L, MCV 91.6, MCH 29.5, MCHC 32.2, RDW Std Deviation 63.7 H, RDW Coeff of Wiliam 19.3 H, Plt Count 60 L, MPV 11.6, Immature Gran % (Auto) 1.500 H, Neut % (Auto) 62.1, Lymph % (Auto) 22.4, [place] % (Auto) 10.3 H, Eos % (Auto) 3.3, Baso % (Auto) 0.4, Absolute Neuts (auto) 5.1, Absolute Lymphs (auto) 1.85, Nucleated RBC % 0, Sodium 133 L, Potassium 5.3 H, Chloride 102, Carbon Dioxide 23.0, Anion Gap 8, BUN 69 H, Creatinine 6.48 H, Estim Creat Clear Calc 4.64, Est GFR (MDRD) Af Amer 8 L, Est GFR (MDRD) Non-Af 7 L, BUN/Creatinine Ratio 10.6, Glucose 124 H, Calcium 9.0, Phosphorus 7.0 H, Magnesium 1.5 L
--- NOTE | 2024-01-20 07:36 | ANES.CONFIRM ---
Anesthesia: Confirm Documents Multiple Procedures on Account (2) Confirmed Documents: Yes
--- NOTE | 2024-01-20 07:36 | ANES.CONFIRM ---
Anesthesia: Confirm Documents Multiple Procedures on Account (2) Confirmed Documents: Yes
[2024-01-20] MEDS: NIFEdipine 60 MG Tablet PO ×2 (08:47→20:33)
[2024-01-20] MEDS: Pantoprazole Sodium 40 MG Tablet PO ×2 (08:47→20:32)
[2024-01-20] MEDS: Lisinopril 20 MG Tablet PO ×2 (08:47→20:32)
[2024-01-20] MEDS: Carvedilol 25 MG Tablet PO ×2 (08:47→20:32)
[2024-01-20] MEDS: Acetaminophen 325 MG Tablet 650 MG PO ×2 (10:19→20:38)
[2024-01-20] MEDS: Magnesium Sulfate 2 GM in Dextrose 5%-Water (100mL Bag) 100 ML IV (10:24)
[2024-01-20] MEDS: 0.9% Saline Lock 10 ML Syringe IV (10:25)
--- NOTE | 2024-01-20 12:48 | EX.PCM.CON.S ---
Assessment & Plan Assessment/Plan (1) Arteriovenous fistula stenosis: QUALIFIERS: Encounter type: initial encounter Qualified Code(s): T82.858A - Stenosis of other vascular prosthetic devices, implants and grafts, initial encounter PLAN: -pulsatile nature and new aneurysmal segment suggest outflow stenosis -plan fistulagram tomorrow AM -would avoid accessing site with skin changes for future access -if no improvement in skin appearance may need tunneled catheter and OR revision to resect that location HPI Consult Data Date of Consult: 01/20/24 HPI Narrative HPI Narrative: MONA ESTRELLA, is a 83 F who is admitted with hematuria, bladder tumors. She has history of left upper arm AV fistula created about 5 months ago that had been functioning well for HD as outpatient. Since admission they have been unsuccessful at attempting use and a temporary catheter has been placed. No prior fistulagrams, no prior catheters. [facility] Medical History History of echocardiogram Wears glasses Post-menopausal Cancer Anxiety History of steroid therapy Walker as ambulation aid Low iron High cholesterol Injury of head and neck Syncope Falls Non-smoker ESRD on dialysis Heart murmur Mitral regurgitation Hypothyroidism Vertigo Cardiomyopathy Sjogren syndrome with inflammatory arthritis Arthritis Hyperlipidemia Type 2 diabetes mellitus CKD (chronic kidney disease) stage 5, GFR less than 15 ml/min Bilateral lower extremity edema Macular degeneration Lumbar spinal stenosis Glaucoma Heart failure Osteoporosis Thyroid disease Gastric reflux Hypertension Hx of fracture of wrist Rheumatoid arthritis Kidney failure Cancer Anemia Home Medications ?Medication ?Instructions ?Recorded ?Last Taken ?Type levothyroxine 25 mcg tablet 25 mcg PO DAILY thryoid 06/13/22 01/14/24 History nifedipine 60 mg tablet,extended 60 mg PO BID BLOOD PRESSURE 07/16/23 01/14/24 History release latanoprost 0.005 % eye drops 1 drp EACH EYE QPM glaucoma 09/06/23 Unknown History lisinopril 20 mg tablet 20 mg PO BID hypertension 09/06/23 01/14/24 History atorvastatin 10 mg tablet 10 mg PO DAILY #90 tabs 11/07/23 Unknown Rx clonidine HCl 0.1 mg tablet 0.1 mg PO Q6H PRN hypertensive 11/07/23 Unknown History emergency hydralazine 100 mg tablet 100 mg PO Q8H hypertension 11/07/23 01/14/24 History mirtazapine 7.5 mg tablet 7.5 mg PO QHS 11/07/23 Unknown History pantoprazole 40 mg tablet,delayed 40 mg PO BID 11/07/23 Unknown History release clonidine 0.1 mg/24 hr weekly 1 patch transdermal ROLON 12/09/23 Unknown History transdermal patch carvedilol 25 mg tablet 50 mg PO BID 12/31/23 01/14/24 History Allergy/AdvReac Type Severity Reaction Status Date / Time beef derived (bovine) Allergy Unknown PT UNABLE Verified 01/14/24 13:50 TO RESPOND-NEEDS F/U Pork/Porcine Containing Allergy Unknown PT UNABLE Verified 01/14/24 13:50 Products TO RESPOND-NEEDS F/U adalimumab (From Humira) Allergy Hives Verified 01/14/24 13:50 Family History Mother Heart disease Hypertension Osteoporosis Father CVA (cerebral vascular accident) Hypertension Surgical History History of surgery Hx of esophagogastroduodenoscopy H/O transurethral resection of bladder tumor (TURBT) Hx of colonoscopy S/P total knee arthroplasty S/P vein stripping S/P partial hysterectomy History of bladder surgery History of nephrectomy Social History household members: family Smoking Status: Never smoker alcohol intake: never substance use type: does not use ROS Constitutional Constitutional: Denies chills, fever(s), frequent falls or lethargy Eyes Eyes: Denies loss of vision Respiratory/Chest Respiratory/Chest: Denies cough, shortness of breath at rest, shortness of breath with exertion or wheezing Genitourinary Genitourinary: Reports hematuria; Denies dysuria Integumentary Integumentary: Reports other Details: thinned skin at prior access site for AVF, present a few weeks and stable Neurologic Neurologic: Denies abnormal speech, focal weakness, headache(s), loss of vision, numbness, paresthesias or sensory deficit Hematologic/Lymphatic Hematologic/Lymphatic: Denies easy bleeding, easy bruising or lymphadenopathy Physical Exam Const alert, oriented x3, no apparent distress and healthy appearing General Appearance: cooperative; Negative for combative or lethargic Orientation / Consciousness: awake Exam Limitations: no limitations HEENT Head and Scalp: normocephalic and atraumatic Eyes EOMs intact bilaterally General Eye: normal appearance of both eyes Neck full ROM and no lymphadenopathy General: trachea midline Resp normal respiratory effort and no use of accessory muscles Effort and Inspection: Negative for labored, stridor or audible wheezes Cardio regular rate and regular rhythm Cardio Narrative: LUE- pulsatile fistula, area of arterial access with thinned/shiny skin, no ulceration Peripheral Pulses: brachial pulses present and radial pulses present Back/Spine Cervical Spine: cervical ROM normal Extremity full ROM, normal capillary refill and no clubbing, cyanosis or edema Skin no rashes or lesions noted and no wounds Neuro oriented x3, CN's II-XII intact bilaterally, no focal motor deficits and no sensory deficits noted Psych thought process normal, cooperative, affect normal, speech normal and activity/motor behavior normal Lab / Micro Data 01/20/24 04:45 01/20/24 04:45 Labs: Laboratory Results - last 24 hr 01/20/24 04:45: WBC 8.3, RBC 2.51 L, Hgb 7.4 L, Hct 23.0 L, MCV 91.6, MCH 29.5, MCHC 32.2, RDW Std Deviation 63.7 H, RDW Coeff of Wiliam 19.3 H, Plt Count 60 L, MPV 11.6, Immature Gran % (Auto) 1.500 H, Neut % (Auto) 62.1, Lymph % (Auto) 22.4, [place] % (Auto) 10.3 H, Eos % (Auto) 3.3, Baso % (Auto) 0.4, Absolute Neuts (auto) 5.1, Absolute Lymphs (auto) 1.85, Nucleated RBC % 0, Sodium 133 L, Potassium 5.3 H, Chloride 102, Carbon Dioxide 23.0, Anion Gap 8, BUN 69 H, Creatinine 6.48 H, Estim Creat Clear Calc 4.64, Est GFR (MDRD) Af Amer 8 L, Est GFR (MDRD) Non-Af 7 L, BUN/Creatinine Ratio 10.6, Glucose 124 H, Calcium 9.0, Phosphorus 7.0 H, Magnesium 1.5 L Charges/Coding Visit Charges Inpatient E&M: 20825 Init Hosp L2
--- NOTE | 2024-01-20 14:07 | PN.RENAL_ITS ---
Subjective Subjective no new events Objective Data Objective Data Vital Signs: Vital Signs Temp Pulse Resp BP Pulse Ox O2 Del Method O2 Flow Rate 98.0 F 89 16 208/61 H 95 Room Air 4 01/20/24 12:15 01/20/24 14:00 01/20/24 14:00 01/20/24 14:00 01/20/24 14:00 01/20/24 14:00 01/19/24 16:30 Oxygen Flow Rate (L/min) 4 Oxygen Delivery Method Room Air Weight: 49.8 kg Body Mass Index (BMI) 21.4 Intake & Output: Intake and Output for Last 24 Hours 01/18/24 01/19/24 01/20/24 23:59 23:59 23:59 Intake Total 50 / 50 502.25 / 502.25 Output Total 23893 / 49196 1100 / 2300 2200 / 2200 Balance -27808 / -65785 -1100 / -2180 -1697.75 / -1697.75 Lab / Micro Data 01/20/24 04:45 01/20/24 04:45 Labs: Laboratory Results - last 24 hr 01/20/24 04:45: WBC 8.3, RBC 2.51 L, Hgb 7.4 L, Hct 23.0 L, MCV 91.6, MCH 29.5, MCHC 32.2, RDW Std Deviation 63.7 H, RDW Coeff of Wiliam 19.3 H, Plt Count 60 L, MPV 11.6, Immature Gran % (Auto) 1.500 H, Neut % (Auto) 62.1, Lymph % (Auto) 22.4, [place] % (Auto) 10.3 H, Eos % (Auto) 3.3, Baso % (Auto) 0.4, Absolute Neuts (auto) 5.1, Absolute Lymphs (auto) 1.85, Nucleated RBC % 0, Sodium 133 L, P otassium 5.3 H, Chloride 102, Carbon Dioxide 23.0, Anion Gap 8, BUN 69 H, C reatinine 6.48 H, Estim Creat Clear Calc 4.64, Est GFR (MDRD) Af Amer 8 L, Est GFR (MDRD) Non-Af 7 L, BUN/Creatinine Ratio 10.6, Glucose 124 H, Calcium 9.0, P hosphorus 7.0 H, Magnesium 1.5 L Physical Exam Narrative Alert and oriented no obvious distress s1s2 no murmurs lungs clear abdomen soft no organomegaly no edema Left upper arm AV fistula very faint pulsatile thrill, no bruit +right IJ vas cath Assessment & Plan Assessment/Plan (1) ESRD on hemodialysis: PLAN: - On hemodialysis Friday, Friday, Friday. Could not cannulate left arm AV fistula. It is pulsatile. Vascular surgery consult reviewed. Likely outflow stenosis. Going for fistulogram tomorrow. If successful, we will be able to remove temporary dialysis catheter. Anemia. Blood loss. Received PRBC. Will give a dose of erythropoietin and IV iron with next HD. Platelet count slowly going lower. Management as per primary. No heparin bolus with dialysis.
[2024-01-20] MEDS: 0.9% Normal Saline 1,000 ML IV.SOLN. 1000 ML OPERA.SITE (15:15)
[2024-01-20] MEDS: PureFlow B 2K Dialysis Soln 1 BAG 6 BAG PF (15:15)
[2024-01-20] MEDS: Heparin 10,000 UNITS/10 ML Vial IV (15:15)
[2024-01-20] MEDS: 0.9% Normal Saline (500mL Bag) 500 ML 15 ML IV (15:42)
--- NOTE | 2024-01-20 16:41 | PN.HOSP_ITS ---
Reason for Visit Reason for Visit: Hematuria Subjective Subjective No issues overnight. Plan is for dialysis today. Surgery got canceled yesterday due to thrombocytopenia and not having platelets available. Plan is for OR later today for bladder surgery with cauterization and fistulogram tomorrow. Objective Data Objective Data Vital Signs: Vital Signs Temp Pulse Resp BP Pulse Ox O2 Del Method O2 Flow Rate 97.7 F L 71 17 198/65 H 100 Room Air 4 01/20/24 15:43 01/20/24 15:43 01/20/24 15:43 01/20/24 15:43 01/20/24 15:43 01/20/24 15:43 01/19/24 16:30 Oxygen Flow Rate (L/min) 4 Oxygen Delivery Method Room Air Weight: 46.5 kg Body Mass Index (BMI) 20.0 Intake & Output: Intake and Output for Last 24 Hours 01/18/24 01/19/24 01/20/24 23:59 23:59 23:59 Intake Total 50 / 50 502.25 / 502.25 Output Total 43891 / 36352 1100 / 2300 4850 / 4850 Balance -77454 / -82508 -1100 / -2180 -4347.75 / -4347.75 Lab / Micro Data 01/20/24 04:45 01/20/24 04:45 Labs: Laboratory Results - last 24 hr 01/20/24 04:45: WBC 8.3, RBC 2.51 L, Hgb 7.4 L, Hct 23.0 L, MCV 91.6, MCH 29.5, MCHC 32.2, RDW Std Deviation 63.7 H, RDW Coeff of Wiliam 19.3 H, Plt Count 60 L, MPV 11.6, Immature Gran % (Auto) 1.500 H, Neut % (Auto) 62.1, Lymph % (Auto) 22.4, [place] % (Auto) 10.3 H, Eos % (Auto) 3.3, Baso % (Auto) 0.4, Absolute Neuts (auto) 5.1, Absolute Lymphs (auto) 1.85, Nucleated RBC % 0, Sodium 133 L, P otassium 5.3 H, Chloride 102, Carbon Dioxide 23.0, Anion Gap 8, BUN 69 H, C reatinine 6.48 H, Estim Creat Clear Calc 4.64, Est GFR (MDRD) Af Amer 8 L, Est GFR (MDRD) Non-Af 7 L, BUN/Creatinine Ratio 10.6, Glucose 124 H, Calcium 9.0, P hosphorus 7.0 H, Magnesium 1.5 L Physical Exam Const alert, oriented x3, no apparent distress and average body habitus; Negative for healthy appearing Constitutional Narrative: Elderly, French, female, lying in bed, appears comfortable, does not appear toxic HEENT normocephalic, head/scalp atraumatic, hearing grossly normal bilaterally and moist oral mucous membranes Neck Neck Narrative: Right IJ HD catheter in place, site appears clean and dry. Resp normal respiratory effort, normal air movement, no retractions, no use of accessory muscles and clear to auscultation bilaterally Resp Narrative: Diminished at bases bilaterally Auscultation: Negative for rales, rhonchi or wheezes Cardio regular rate, regular rhythm, S1 normal heart sound, S2 normal heart sound, no rub, no gallops and no clicks; Negative for no murmurs Cardio Narrative: 3 out of 6 systolic murmur GI normal to inspection, nondistended, normoactive bowel sounds, soft to palpation and non-tender Narrative: CBI ongoing with bright reddish fluid noted in catheter bag. 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 -Management per urology -Previous BCG infusion but patient did not tolerate -Ongoing hematuria with continuous bladder irrigation -Plan for OR got canceled yesterday and plan is now for OR today for resection of the remaining tumors in the bladder and cauterization -Canceled secondary to thrombocytopenia and no platelets available for transfer immediately -DDAVP was given on 01/19/2024 -Has had a total of 4 units of packed red blood cells -Will continue to monitor hemoglobin and transfuse for further drop or hemoglobin less than 7 -Once hematuria has ceased should be okay for discharge Acute on chronic anemia secondary to acute blood loss in the form of hematuria -Has been transfused 4 units of packed red blood cells -Continue to monitor hemoglobin -Hemoglobin 7.4 from 8.8 yesterday however patient is in need of dialysis -Repeat CBC in a.m.--> if continues to be low after dialysis will give 1 unit packed red blood cells End-stage renal disease-HD dependent -HD typically MWF -Fistula has no significant thrill or bruit and has not been nonfunctional since Friday -Continue dialysis per temporary dialysis catheter for now -Consulted vascular surgery and plan is for fistulogram on 01/21/2024 and a fistula cannot be opened up via intervention we will plan for tunneled dialysis catheter Essential hypertension -Patient with history of resistant hypertension -Continue home medications as she is currently taking -Continue to monitor History of neuro paraneoplastic syndrome -Had been on steroids previously and transferred to [facility] for IVIG versus plasmapheresis -Unclear on ultimately what she decided to do however patient's not on any steroids at this time -Monitor mental status Hyperlipidemia -Continue home statin Glaucoma -Continue home eyedrops GERD -Continue home Protonix History of rheumatoid arthritis -Patient takes nothing chronically -Continued outpatient follow-up Hypothyroidism -Continue home levothyroxine DVT prophylaxis -SCDs due to ongoing hematuria CODE STATUS Full code Charges/Coding Visit Charges Inpatient E&M: 38992 Subs Hosp L2
--- NOTE | 2024-01-20 17:12 | ANES.CONF2 ---
Anesthesia: Confirm Documents Multiple Procedures on Account (3) Confirmed Documents: Yes
--- NOTE | 2024-01-20 17:13 | ANES.CONF2 ---
Anesthesia: Confirm Documents Multiple Procedures on Account (3) Confirmed Documents: Yes
--- NOTE | 2024-01-20 17:13 | ANES.CONF2 ---
Anesthesia: Confirm Documents Multiple Procedures on Account (3) Confirmed Documents: Yes
[2024-01-20] MEDS: oxyCODONE 5 MG Tablet PO (19:50)
[2024-01-20] MEDS: Latanoprost 0.005% 1 Bottle 1 DRP EACH EYE (20:31)
[2024-01-20] MEDS: Mirtazapine 15 MG Tablet 7.5 MG PO (20:33)
[2024-01-20] MEDS: Atorvastatin Calcium 10 MG Tablet PO (20:33)
[2024-01-20] MEDS: MENTHOL 226.8 GM JAR 1 APPLIC TOPICAL (22:14)
[2024-01-21] VITALS (18 sets, daily range): BP systolic 96–220; BP diastolic 51–87; PULSE 73–82; RESP 16–18; TEMP 36.3–37.6; O2SAT 96–100
[2024-01-21] MEDS: hydrALAZINE 50 MG Tablet 100 MG PO (04:35)
[2024-01-21 07:05] LABS: Absolute Neutrophil Count 5.1 X10^3/uL (2.0-7.7); Basophil# 0.03 X10^3/uL; Basophil% 0.4 % (0-1); Eosinophil# 0.27 X10^3/uL; Eosinophils% 3.5 % (0-5); Hematocrit 25.7 % (37-47); Hemoglobin 8.2 g/dL (12.0-15.0); Mean Corp Hgb Conc 31.9 g/dL (32-36); Mean Corpuscular Hgb 29.6 pg (27.0-32.0); Mean Corpuscular Volume 92.8 fL (81-99); Mean Platelet Vol. 11.7 fl (6.2-12.0); Monocyte# 0.85 X10^3/uL; Monocyte% 10.9 % (0-10); NRBC Flagged by Analyzer 0 % (0-5); Neutrophil % 65.5 % (47-70); POSITIVE COUNT YES; Platelet Count 81 K/mm3 (150-450); RBC Distribution Width CV 18.6 % (11.6-14.6); RBC Distribution Width SD 63.5 fl (35.1-43.9); Red Blood Count 2.77 M/mm3 (4.2-5.4); White Blood Count 7.8 K/mm3 (4.4-11.0)
[2024-01-21 07:30] LABS: Anion Gap 9 (5-15); BUN 51 mg/dL (7-18); BUN/Creat Ratio 10.2 RATIO (10-20); Calcium,Total 9.2 mg/dL (8.5-10.1); Chloride 103 mmol/L (98-107); Creatinine, Serum 5.02 mg/dL (0.55-1.02); EST Glomerular Filtration Rate 9 mL/min (>60); Est Glom Filt Rate - Afr Amer 11 mL/min (>60); Estimated Creatinine Clearance 5.99 ml/min; Glucose 101 mg/dL (74-106); Magnesium 1.8 mg/dL (1.6-2.6); Potassium 4.9 mmol/L (3.5-5.1); Sodium Level 135 mmol/L (136-145)
--- NOTE | 2024-01-21 07:32 | PCM.PN.HOSP ---
Reason for Visit Reason for Visit: Hematuria Subjective Subjective Patient has been in the OR twice today. Once for fistulogram which was successful and wants to the OR for her tumor removal and irrigation of the bladder with cautery. She currently has just arrived back from PACU. She is groggy but has no acute complaints at this time. Objective Data Objective Data Vital Signs: Vital Signs Temp Pulse Resp BP Pulse Ox O2 Del Method O2 Flow Rate 99.1 F 76 18 220/87 H 99 Room Air 4 01/20/24 20:26 01/21/24 04:35 01/20/24 20:26 01/21/24 04:35 01/20/24 20:26 01/20/24 20:30 01/19/24 16:30 Oxygen Flow Rate (L/min) 4 Oxygen Delivery Method Room Air Weight: 46.5 kg Body Mass Index (BMI) 20.0 Intake & Output: Intake and Output for Last 24 Hours 01/19/24 01/20/24 01/21/24 23:59 23:59 23:59 Intake Total 521.25 / 521.25 0 / 0 Output Total 1100 / 2300 4850 / 4850 Balance -1100 / -2180 -4328.75 / -4328.75 0 / 0 Lab / Micro Data 01/21/24 05:43 01/21/24 05:43 Labs: Laboratory Results - last 24 hr 01/20/24 18:30: Blood Type O POSITIVE 01/21/24 05:43: WBC 7.8, RBC 2.77 L, Hgb 8.2 L, Hct 25.7 L, MCV 92.8, MCH 29.6, MCHC 31.9 L, RDW Std Deviation 63.5 H, RDW Coeff of Wiliam 18.6 H, Plt Count 81 L, MPV 11.7, Immature Gran % (Auto) 1.700 H, Neut % (Auto) 65.5, Lymph % (Auto) 18.0 L, [place] % (Auto) 10.9 H, Eos % (Auto) 3.5, Baso % (Auto) 0.4, Absolute Neuts (auto) 5.1, Absolute Lymphs (auto) 1.40, Nucleated RBC % 0, Sodium 135 L, Potassium 4.9, Chloride 103, Carbon Dioxide 23.0, Anion Gap 9, BUN 51 H, Creatinine 5.02 H, Estim Creat Clear Calc 5.99, Est GFR (MDRD) Af Amer 11 L, Est GFR (MDRD) Non-Af 9 L, BUN/Creatinine Ratio 10.2, Glucose 101, Calcium 9.2, Magnesium 1.8 Physical Exam Const alert, oriented x3, no apparent distress and average body habitus; Negative for healthy appearing Constitutional Narrative: Elderly, Qat[place], female, lying in bed, appears comfortable, does not appear toxic, very groggy as she is just arrived back from PACU General Appearance: cooperative HEENT normocephalic, head/scalp atraumatic and hearing grossly normal bilaterally Resp normal respiratory effort, normal air movement, no retractions, no use of accessory muscles and clear to auscultation bilaterally Resp Narrative: Diminished at bases bilaterally Auscultation: Negative for rales, rhonchi or wheezes Cardio regular rate, regular rhythm, S1 normal heart sound, S2 normal heart sound, no rub, no gallops and no clicks; Negative for no murmurs Cardio Narrative: 3 out of 6 systolic murmur GI normal to inspection, nondistended, normoactive bowel sounds, soft to palpation and non-tender Narrative: CBI ongoing with bright reddish fluid noted in catheter bag. 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 -Management per urology -Previous BCG infusion but patient did not tolerate -Ongoing hematuria with continuous bladder irrigation -Went to the OR today--> still with gross hematuria but will continue to monitor -Has had a total of 4 units of packed red blood cells -Will continue to monitor hemoglobin and transfuse for further drop or hemoglobin less than 7 -Once hematuria has ceased should be okay for discharge Acute on chronic anemia secondary to acute blood loss in the form of hematuria -Has been transfused 4 units of packed red blood cells -Continue to monitor hemoglobin -Hemoglobin did improve with dialysis up to 8.2 -Repeat CBC in a.m.--> if drops will transfuse End-stage renal disease-HD dependent -HD typically MWF -Fistula has no significant thrill or bruit and has not been nonfunctional since Friday -Continue dialysis per temporary dialysis catheter for now -Fistulogram performed today and was a success--> plans to utilize tomorrow if it continues to be a problem will need tunneled dialysis catheter and outpatient follow-up for a fistula revision Essential hypertension -Patient with history of resistant hypertension -Continue home medications as she is currently taking -Continue to monitor History of neuro paraneoplastic syndrome -Had been on steroids previously and transferred to [facility] for IVIG versus plasmapheresis -Unclear on ultimately what she decided to do however patient's not on any steroids at this time -Monitor mental status Hyperlipidemia -Continue home statin Glaucoma -Continue home eyedrops GERD -Continue home Protonix History of rheumatoid arthritis -Patient takes nothing chronically -Continued outpatient follow-up Hypothyroidism -Continue home levothyroxine DVT prophylaxis -SCDs due to ongoing hematuria CODE STATUS Full code Charges/Coding Visit Charges Inpatient E&M: 70656 Subs Hosp L2
[2024-01-21] MEDS: NIFEdipine 60 MG Tablet PO ×2 (07:40→23:01)
[2024-01-21] MEDS: Lisinopril 20 MG Tablet PO (07:40)
[2024-01-21] MEDS: Pantoprazole Sodium 40 MG Tablet PO ×2 (07:41→22:25)
[2024-01-21] MEDS: Carvedilol 25 MG Tablet PO (07:41)
--- NOTE | 2024-01-21 10:12 | PCM.OPRPT ---
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 She has chronic renal failure with prior left upper arm AV fistula which had been functional until recently. With attempted use shortly after admission they were unable to successfully cannulate and achieve flow. The fistula is pulsatile which suggest outflow stenosis or occlusion. She is taken now for fistulogram with possible intervention. Description of procedure: Upon obtaining form consent and verification correct patient procedure site patient taken to the [facility] where she was positioned prepped and draped in usual sterile fashion. Timeouts performed conscious sedation ministered Versed and fentanyl. Ultrasound was used to evaluate the fistula is found to be follow-up significant thrombus in the 2 aneurysmal segments though it was widely patent with no thrombus closer to the arterial anastomosis. Skin overlying the vessel at this location was anesthetized with 1% lidocaine the vessel accessed with a micropuncture needle wire. This then exchanged for a 6 [place] sheath through which hand-injection subtraction angiography was performed which revealed thrombus filled mid to distal fistula. Through the 6 [place] sheath a glide advantage wire and a KMP catheter were advanced and attempted to navigate the thrombosed segment into the outflow were undertaken. This initial was unsuccessful so the glide advantage was then exchanged for a straight glide which was able to successfully navigate into the outflow vein. The catheter was then advanced into the axillary vein and subtraction venography the central system performed which revealed patent superior vena cava, left innominate vein, left axillary subclavian vein. Through the KMP catheter the glide advantage wire was advanced and the catheter withdrawn. AngioJet pharmacomechanical thrombectomy device was then advanced into the fistula and engaged for multiple passes across the thrombosed portion of the fistula. The device was then withdrawn and repeat imaging revealed significant improvement with some residual mural thrombus within the aneurysmal segment that was more superior on the arm. The device was then readvanced and reengaged while the fistula aneurysmal segment was compressed in order to promote thrombus retrieval. Repeat imaging revealed improved thrombus burden. The device was then withdrawn and the KMP catheter [place] over the glide advantage wire was then exchanged for an 018 wire. The lesion was then balloon angioplastied sequentially with first a 6 mm Bard conquest balloon inflated to nominal for multiple inflations and then withdrawn. Next a 7 mm angioscope balloon was advanced in position and inflated for multiple inflations to nominal and then deflated withdrawn. Finally a 7 mm drug-coated angioplasty was advanced and inflated to nominal for minutes and deflated withdrawn. Completion imaging revealed brisk contrast egress from the fistula with some residual mural thrombus with aneurysmal segments but overall satisfactory appearance. The fistula this point had thrill and a low resistant Doppler signal throughout. Nylon sutures in place at the access site and the sheath and wire withdrawn followed by 5 minutes minute pressure. The patient then returned to the PCU for recovery.
--- NOTE | 2024-01-21 11:56 | NURSING ---
1108 Pt back to room, nurse to nurse report received. 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
--- NOTE | 2024-01-21 13:35 | PRE.ANES_ITS ---
ASA Classification* ASA Classification ASA Classification: 4 Assessment & Plan Anesthesia* Anesthesia Assessment Anesthesia Assessment: Discussed sedation and/or anesthesia options, risks, benefits, and alternatives with patient/parents/legal guardian/POA. Questions invited. The patient/parents/legal guardian/POA seems to understand and agrees to proceed with anesthesia plan. Reviewed the physical assessment, medical history, allergy history and patient home medications list prior to surgery/procedure/anesthetic and documented any changes. Performed airway and anesthesia risk assessments. Anesthesia Type Anesthesia Type: General History Source History Obtained from:: Patient and Chart Anesthesia Focused Assessment* Temperature: 98.1 F Pulse Rate: 74 Blood Pressure: 176/77 Respiratory Rate: 16 Pulse Ox: 98 Oxygen Delivery Method: Room Air Airway Assessment Mouth opens: 2 cm Mallampati Score: IV Teeth Condition: Intact Neck Range of motion (ROM): Limited ROM (Patient has decreased extension.) Focused Labs Anesthesia Preop lab: CBC WBC 7.8 K/mm3 (4.4-11.0) 01/21/24 05:43 RBC 2.77 M/mm3 (4.2-5.4) L 01/21/24 05:43 Hgb 8.2 g/dL (12.0-15.0) L 01/21/24 05:43 Hct 25.7 % (37-47) L 01/21/24 05:43 Plt Count 81 K/mm3 (150-450) L 01/21/24 05:43 CHEMISTRY Potassium 4.9 mmol/L (3.5-5.1) 01/21/24 05:43 Sodium 135 mmol/L (136-145) L 01/21/24 05:43 Magnesium 1.8 mg/dL (1.6-2.6) 01/21/24 05:43 Phosphorus 7.0 mg/dL (2.5-4.9) H 01/20/24 04:45 BUN 51 mg/dL (7-18) H 01/21/24 05:43 Creatinine 5.02 mg/dL (0.55-1.02) H 01/21/24 05:43 Glucose 101 mg/dL (74-106) 01/21/24 05:43 POC Glucose 285 mg/dL (74-106) H 09/10/23 11:12 TSH 1.270 uIU/mL (0.358-3.740) 01/19/24 05:42 COAG PT 13.7 SECONDS (11.7-14.9) 08/04/23 12:32 Pre-Assessment Diagnosis/Proposed Procedure Planned Operative Procedure(s): Cysto,Transurethra Resec BladderTum Anesthesia History Anesthesia History - ground layer: Anesthesia History - ground layer Hx Hospitalization Yes: ALTERED MENTAL STATE 12/31/23 08:18 2024 Any Problems With Anesthesia No 01/21/24 11:41 Cholinesterase deficiency No 01/21/24 11:41 You/Your Family Experience No 01/21/24 11:41 fever (hyperthermia) with Relationship Recent Exposure to Contagious No 01/21/24 11:41 Disease Does patient have nerve No 01/21/24 11:41 stimulator Patient instructed to have No 01/21/24 11:41 device shut off --Does patient have Pacemaker No 01/20/24 15:22 or ICD? When Was Last Pacemaker Check QUESTION #4 FULL TEXT: You/Your Family Experience fever (hyperthermia) with Anesthesia Last Oral Intake Last Oral intake: Last Oral Intake NPO since 00:00 01/21/24 11:41 Meds taken in AM with sips of Yes 01/21/24 11:41 water? Meds patient instructed to see MAR 01/21/24 11:41 take am of surgery PONV PONV - ground layer: PONV - ground layer Female Yes 12/31/23 08:18 HX of Motion Sickness No 12/31/23 08:18 HX of N/V After Surgery No 12/31/23 08:18 Non-Smoker Yes 12/31/23 08:18 Duration of Surgery greater Yes 12/31/23 08:18 than 60 minutes Number of Risk Factors 3 12/31/23 08:18 PONV Score Moderate Risk 12/31/23 08:18 Height & Weight Height & Weight: Anesthesia: Height & Weight Height 5 ft 01/21/24 11:41 Weight: 46.5 kg 01/21/24 11:41 Body Mass Index (BMI) 20.0 01/21/24 11:41 Respiratory Assessment Respiratory Assessment - ground layer: Respiratory Tract Infection Hx - ground layer Hx Respiratory Tract Infection No 01/21/24 11:41 STOP Sleep Apnea STOP Sleep Apnea - ground layer: STOP Sleep Apnea - ground layer Hx Hypertension Yes 01/16/24 11:32 Hx Sleep Apnea No 01/14/24 19:36 CPAP BIPAP Do you snore loudly (louder No 01/14/24 19:36 than talking or can be heard Do you often feel tired/ No 01/14/24 19:36 fatigued/ sleepy during daytime? Has anyone observed you stop No 01/14/24 19:36 breathing during sleep? STOP Results Negative 01/14/24 19:36 QUESTION #5 FULL TEXT : Do you snore loudly (louder than talking or can be heard through closed doors)? Tobacco Use History Tobacco Use History - ground layer: Tobacco Use History - ground layer Tobacco Use Non-smoker 07/22/23 11:02 Smoking Status Never smoker 01/14/24 19:36 Hx Tobacco Use No 01/14/24 19:36 Years Smoking Packs Smoked per Day Smoking Cessation Date was within the last 15 years Hx Smoking Cessation Date Hx Smoking Cessation Counseling Hematologic Medial History Hematologic Hx - ground layer: Hematologic Medical Hx - neurological surgeon Hx of Blood Transfusion Yes 01/14/24 19:36 Hx of Transfusion in last 3 Yes 01/14/24 19:36 Months Date of Last Transfusion (if 10/202301/14/24 19:36 within last 3 months) Ever experience any problems No 01/14/24 19:36 with transfusion(s)? Specify any problems Hx of Preganancy in last 3 No 01/14/24 19:36 Months Nurse Filling Out Transfusion [id number] 01/14/24 19:36 & Questions: Date: 01/14/24 01/14/24 19:36 Time: 19:49 01/14/24 19:36 Patient unable to answer at this time (ie. confused, unrespo /Reproduction History /Reproductive History - ground layer: /Reproductive Hx- ground layer Hx Now No 01/21/24 11:41 Gestational Age (in weeks): EDC: Hx Hx Para Hx Section SAB No 01/21/24 11:41 Active Medications Active Medications: Current Medications Generic Name Dose Route Start Last Admin Trade Name Freq PRN Reason Stop Dose Admin Acetaminophen 650 mg 01/14/24 14:59 01/20/24 20:38 Acetaminophen 325 Mg Tablet PO 650 mg Q6H PRN PRN Administration Pain Score 1-10 Al Hydrox/Mg Hydrox/Simethicone 30 ml 01/14/24 14:59 Mag /Aluminum/Simeth Wch Udc 30 Ml Oral.Susp PO Q4H PRN PRN HEARTBURN Atorvastatin Calcium 10 mg 01/15/24 22:00 01/20/24 20:33 Atorvastatin Calcium 10 Mg Tablet PO 10 mg QHS HOWARD Administration Carvedilol 25 mg 01/15/24 10:00 01/21/24 07:41 Carvedilol 25 Mg Tablet PO 25 mg BID HOWARD Administration Protocol Clonidine 0.1 mg 01/14/24 14:57 01/18/24 16:55 Clonidine Hcl 0.1 Mg Tablet PO 0.1 mg Q6H PRN Administration hypertensive emergency Protocol Clonidine HCl 0.1 mg 01/15/24 06:15 01/18/24 06:41 Clonidine Hcl 0.1 Mg Patch TD 0.1 mg ROLON HOWARD Administration Docusate Sodium 200 mg 01/14/24 22:00 01/21/24 11:51 Docusate Sodium 100 Mg Capsule PO Not Given BID HOWARD Fentanyl Citrate 25 mcg 01/14/24 21:44 01/15/24 06:02 Fentanyl 100 Mcg/2 Ml Ampul IV 25 mcg Q2H PRN PRN Administration pain 6-10 Hydralazine HCl 100 mg 01/14/24 22:00 01/21/24 04:35 Hydralazine 50 Mg Tablet PO 100 mg Q8 HOWARD Administration Hydralazine HCl 10 mg 01/19/24 03:29 01/19/24 11:29 Hydralazine 20 Mg/Ml Vial IV 10 mg Q4H PRN PRN Administration SBP GREATER THAN 160 Protocol Sodium Chloride 500 mls @ 0 mls/hr 01/19/24 15:45 01/21/24 00:29 IV Infused .Q0M HOWARD Infusion KVO Sodium Chloride 500 mls @ 0 mls/hr 01/20/24 15:45 IV .Q0M HOWARD KVO Cefazolin Sodium 2 gm/ Sodium 110 mls @ 150 mls/hr 01/21/24 13:50 Chloride IV 01/21/24 14:33 X1 ONE Latanoprost 1 drp 01/14/24 21:00 01/20/24 20:31 Latanoprost 0.005% 1 Bottle EACH EYE 1 drp QPM HOWARD Administration Levothyroxine Sodium 25 mcg 01/15/24 06:00 01/21/24 04:35 Levothyroxine 25 Mcg Tablet PO Not Given DAILY@0600 [facility] Lisinopril 20 mg 01/15/24 22:00 01/21/24 07:40 Lisinopril 20 Mg Tablet PO 20 mg BID HOWARD Administration Protocol Menthol 1 applic 01/20/24 21:06 01/20/24 22:14 Menthol 226.8 Gm Jar TOPICAL 1 applic TID PRN PRN Administration Pain/Inflammation Metoclopramide HCl 10 mg 01/14/24 14:59 01/15/24 05:13 Metoclopramide 10 Mg/2 Ml Vial IV 10 mg Q8H PRN PRN Administration NAUSEA/VOMITING Mirtazapine 7.5 mg 01/14/24 22:00 01/20/24 20:33 Mirtazapine 15 Mg Tablet PO 7.5 mg QHS HOWARD Administration Nifedipine 60 mg 01/14/24 22:00 01/21/24 07:40 Nifedipine 60 Mg Tablet PO 60 mg BID HOWARD Administration Ondansetron HCl 4 mg 01/14/24 14:59 01/15/24 02:48 Ondansetron 4 Mg/2 Ml Vial IV 4 mg Q8H PRN Administration NAUSEA/VOMITING Oxycodone HCl 5 - 10 mg 01/14/24 14:59 01/20/24 19:50 Oxycodone 5 Mg Tablet PO 10 mg Q6H PRN PRN Administration Pain Score 4-10 Pantoprazole Sodium 40 mg 01/14/24 22:00 01/21/24 07:41 Pantoprazole Sodium 40 Mg Tablet PO 40 mg BID HOWARD Administration Sodium Chloride 10 - 40 ml 01/19/24 10:35 01/20/24 10:25 0.9% Saline Lock 10 Ml Syringe IV 10 ml UD PRN Administration SALINE FLUSH PFSH Medical History History of echocardiogram Wears glasses Post-menopausal Cancer Anxiety History of steroid therapy Walker as ambulation aid Low iron High cholesterol Injury of head and neck Syncope Falls Non-smoker ESRD on dialysis Heart murmur Mitral regurgitation Hypothyroidism Vertigo Cardiomyopathy Sjogren syndrome with inflammatory arthritis Arthritis Hyperlipidemia Type 2 diabetes mellitus CKD (chronic kidney disease) stage 5, GFR less than 15 ml/min Bilateral lower extremity edema Macular degeneration Lumbar spinal stenosis Glaucoma Heart failure Osteoporosis Thyroid disease Gastric reflux Hypertension Hx of fracture of wrist Rheumatoid arthritis Kidney failure Cancer Anemia Home Medications ?Medication ?Instructions ?Recorded ?Last Taken ?Type levothyroxine 25 mcg tablet 25 mcg PO DAILY thryoid 06/13/22 01/14/24 History nifedipine 60 mg tablet,extended 60 mg PO BID BLOOD PRESSURE 07/16/23 01/14/24 History release latanoprost 0.005 % eye drops 1 drp EACH EYE QPM glaucoma 09/06/23 Unknown History lisinopril 20 mg tablet 20 mg PO BID hypertension 09/06/23 01/14/24 History atorvastatin 10 mg tablet 10 mg PO DAILY #90 tabs 11/07/23 Unknown Rx clonidine HCl 0.1 mg tablet 0.1 mg PO Q6H PRN hypertensive 11/07/23 Unknown History emergency hydralazine 100 mg tablet 100 mg PO Q8H hypertension 11/07/23 01/14/24 History mirtazapine 7.5 mg tablet 7.5 mg PO QHS 11/07/23 Unknown History pantoprazole 40 mg tablet,delayed 40 mg PO BID 11/07/23 Unknown History release clonidine 0.1 mg/24 hr weekly 1 patch transdermal ROLON 12/09/23 Unknown History transdermal patch carvedilol 25 mg tablet 50 mg PO BID 12/31/23 01/14/24 History Allergy/AdvReac Type Severity Reaction Status Date / Time beef derived (bovine) Allergy Unknown PT UNABLE Verified 01/14/24 13:50 TO RESPOND-NEEDS F/U Pork/Porcine Containing Allergy Unknown PT UNABLE Verified 01/14/24 13:50 Products TO RESPOND-NEEDS F/U adalimumab (From Humira) Allergy Hives Verified 01/14/24 13:50 Family History Mother Heart disease Hypertension Osteoporosis Father CVA (cerebral vascular accident) Hypertension Surgical History History of surgery Hx of esophagogastroduodenoscopy H/O transurethral resection of bladder tumor (TURBT) Hx of colonoscopy S/P total knee arthroplasty S/P vein stripping S/P partial hysterectomy History of bladder surgery History of nephrectomy Social History household members: family Smoking Status: Never smoker alcohol intake: never substance use type: does not use Review of Systems (Anesthesia) ROS Narrative System reviewed and no additional complaints, except as documented.
--- NOTE | 2024-01-21 13:50 | BLB_PTH ---
PATIENT: MONA ESTRELLA LOC: MS[facility] U#:[id number] AGE/SX: 83/F ROOM: [facility] [place]14/[address]: Dr. Dusty Soliman MD : [id number] BED: 1 DIS: 01/26/2024 SPEC #: [id number] RECD: 01/22/24 09:16 STATUS: ANOOP GONZALEZ #: [id number] ISSAC: 01/21/24 13:[address]: Dusty Soliman DEPT: SURGICAL PATHOLOGY RECD BY: Caron Lucio ENTERED: 01/22/24 10:16 SP TYPE: TURB OTHR DR: MD Dr. Travon Velez DO Dr. Efewongbe Oleghe, MD Dr. Eric Turney, MD Dr. Kathryn Lee, DO Dr. Loren Kirchner, MD Dr. Natthavat Tanphaichitr, MD Dr. Steven A Wanek, MD Barbara Tickton, AGNIESZKA-C Yazmin Mckeon, AGNIESZKA-C ALEM Mccarty PA Rachael McGoron, PA Tissues: Urinary bladder, NOS Procedures: Surgery Specimen Level V HEADER OPERATION: Transurethral resection of bladder PRE-OP DIAGNOSIS: Hematuria TISSUE SUBMITTED: Bladder tumor MICROSCOPIC DIAGNOSIS Urinary bladder tumor, transurethral resection: Papillary urothelial carcinoma. See synoptic report below. 01/23/2024 COMMENT BLADDER CANCER (TUR) SUMMARY Procedure: Transurethral resection of bladder tumor (TURBT) Tumor site: Not specified Histologic type: Papillary urothelial carcinoma Associated epithelial lesions: None identified Histologic grade: 3/3 (WHO high grade) Tumor configuration: Papillary Muscularis propria presence: Present and free of carcinoma Lymphvascular invasion: Not identified Tumor extension: Tumor extends into lamina propria (subepithelial connective tissue). Additional pathologic findings: Chronic inflammation. PATHOLOGIC STAGE: pT1 Nx Mx The above summary is in compliance with [employer] [place] [employer] (CAP) Cancer Protocols Checklist and [place] Joint Committee on Cancer (AJCC), Staging Manual, 8th Ed. Reference is made to the patient's previous urinary bladder transurethral resection ([id number]) in which papillary urothelial carcinoma was identified. Case has been reviewed in consultation with Dr. Mixon who concurs with the above diagnosis. IDC:[id number] MICROSCOPIC DESCRIPTION Slides are reviewed. GROSS DESCRIPTION Received in fixative is one container labeled with the patient's name and designated Bladder tumor. The specimen consists of multiple irregular fragments of montes soft tissue mixed with numerous blood clots that in aggregate measure 8.0 x 6.5 x 2.0 cm. This specimen predominantly consists of blood clots. Motor Setter sections are submitted in ten cassettes. 01/22/2024 TC:0 CPT:82796
[2024-01-21] MEDS: Cefazolin 2 GM in 0.9% Normal Saline (100mL Bag) 100 ML IV (15:15)
--- NOTE | 2024-01-21 15:38 | PCM.PN.REN ---
Subjective Subjective events noted Objective Data Objective Data Vital Signs: Vital Signs Temp Pulse Resp BP Pulse Ox O2 Del Method O2 Flow Rate 99.4 F H 78 16 164/57 H 98 Room Air 4 01/21/24 13:59 01/21/24 13:59 01/21/24 13:59 01/21/24 13:59 01/21/24 13:59 01/21/24 13:59 01/21/24 13:40 Oxygen Flow Rate (L/min) 4 Oxygen Delivery Method Room Air Weight: 46.5 kg Body Mass Index (BMI) 20.0 Intake & Output: Intake and Output for Last 24 Hours 01/19/24 01/20/24 01/21/24 23:59 23:59 23:59 Intake Total 521.25 / 521.25 0 / 0 Output Total 1100 / 2300 4850 / 4850 3200 / 3200 Balance -1100 / -2180 -4328.75 / -4328.75 -3200 / -3200 Lab / Micro Data 01/21/24 05:43 01/21/24 05:43 Labs: Laboratory Results - last 24 hr 01/20/24 18:30: Blood Type O POSITIVE 01/21/24 05:43: WBC 7.8, RBC 2.77 L, Hgb 8.2 L, Hct 25.7 L, MCV 92.8, MCH 29.6, MCHC 31.9 L, RDW Std Deviation 63.5 H, RDW Coeff of Wiliam 18.6 H, Plt Count 81 L, MPV 11.7, Immature Gran % (Auto) 1.700 H, Neut % (Auto) 65.5, Lymph % (Auto) 18.0 L, [place] % (Auto) 10.9 H, Eos % (Auto) 3.5, Baso % (Auto) 0.4, Absolute Neuts (auto) 5.1, Absolute Lymphs (auto) 1.40, Nucleated RBC % 0, Sodium 135 L, Potassium 4.9, Chloride 103, Carbon Dioxide 23.0, Anion Gap 9, BUN 51 H, Creatinine 5.02 H, Estim Creat Clear Calc 5.99, Est GFR (MDRD) Af Amer 11 L, Est GFR (MDRD) Non-Af 9 L, BUN/Creatinine Ratio 10.2, Glucose 101, Calcium 9.2, Magnesium 1.8 Physical Exam Narrative Alert and oriented no obvious distress s1s2 no murmurs lungs clear abdomen soft no organomegaly no edema Left upper arm AV fistula very faint pulsatile thrill, no bruit +right IJ vas cath Assessment & Plan Assessment/Plan (1) ESRD on hemodialysis: PLAN: - On hemodialysis Friday, Friday, Friday. Could not cannulate left arm AV fistula. It is pulsatile. Vascular surgery consult reviewed. s/p fistulogram. report reviewed. attempt fistula access tomorrow Anemia. Blood loss. Received PRBC. erythropoietin and IV iron with HD. Platelet count low. Management as per primary.
--- NOTE | 2024-01-21 17:02 | PCM.OPRPT ---
Report of Operation Date of Procedure: 01/21/24 Pre-Operative Diagnosis: Extensive bladder cancer Post-Operative Diagnosis: Same Surgery/Procedure Performed:: Transurethral section of bladder cancer large Description of Surgical Findings:: Patient was taken back to the operating room after smooth induction of anesthesia Dupree catheter was removed I went into the bladder and she had extensive amount of clots and also hemorrhoid just an organized clots in the bladder made a really difficult to see everything I tried to get these clots up but these are organized clots and I can get them all out she had mostly a lot of tumor still up in the dome of the bladder and the top of the bladder very dangerous area to resect spent like an hour and a half trying to cauterize as much as possible I got most of the tumor out but there was still some tumor still left in the top of the bladder but it became so bloody that was impossible to keep going so as a resecting and cauterizing I did not spend like another hour trying to get the bleeding to stop in the bladder I cauterized extensively I did not see any more arterial bleeding but there was a lot of oozing throughout the bladder so we put the bladder on continuous irrigation should be given 2 units of blood she also got some platelets unguinal order some fresh frozen plasma to help control bleeding and she will go back to the PACU in stable condition with continuous irrigation. Fairly heroic resection of bladder cancer in the end probably more resection would be futile extensive amount of cancer throughout the bladder I do not think further TURBT would be of use for her so may have to consider just palliative care while to talk to the family. Surgeon: Dusty Soliman Type of Anesthesia: General Estimated Blood Loss (mL): 500 Admit VTE Documentation VTE Present on Admission: No VTE Mechan Device Prophylaxis: SCD's VTE Pharm Prophylaxis ordered?: No
--- NOTE | 2024-01-21 17:15 | PCM.POST.ANE ---
Anesthesia: Postop Eval I Current Vital Signs Temperature: 97.8 F Pulse Rate: 80 Blood Pressure: 150/65 Respiratory Rate: 16 Pulse Ox: 98 Oxygen Delivery Method: Room Air Assessment Airway patent: Yes Spontaneous unlabored respirations: Yes Mental status: Awake and Calm nausea: No Vomiting: No Anesthesia Complication: No Fluid Hydration Crystalloid volume administer (ml): 300 Total IV fluid infused: 300 Progress Note Anesthesia document: Postop Eval 1 completed: Yes
[2024-01-21] MEDS: Ondansetron 4 MG/2 ML Vial IV (20:23)
[2024-01-21] MEDS: Docusate Sodium 100 MG Capsule 200 MG PO (22:22)
[2024-01-21] MEDS: Latanoprost 0.005% 1 Bottle 1 DRP EACH EYE (22:22)
[2024-01-21] MEDS: Atorvastatin Calcium 10 MG Tablet PO (22:24)
[2024-01-21] MEDS: Mirtazapine 15 MG Tablet 7.5 MG PO (22:26)
[2024-01-21] MEDS: Acetaminophen 325 MG Tablet 650 MG PO (23:01)
[2024-01-21] MEDS: 0.9% Saline Lock 10 ML Syringe IV (23:05)
[2024-01-22] VITALS (23 sets, daily range): BP systolic 31–187; BP diastolic 58–89; PULSE 72–98; RESP 14–22; TEMP 36.3–37.2; O2SAT 98–100; BMI 24.2; BMI 21.7; BMI 21.6
[2024-01-22] MEDS: oxyCODONE 5 MG Tablet PO (00:20)
[2024-01-22] MEDS: hydrALAZINE 50 MG Tablet 100 MG PO ×4 (00:22→23:27)
[2024-01-22] MEDS: Lisinopril 20 MG Tablet PO ×2 (00:23→09:44)
[2024-01-22] MEDS: Carvedilol 25 MG Tablet PO ×2 (00:24→09:43)
--- NOTE | 2024-01-22 01:02 | NURSING ---
Gave Lisinopril, Carvedilol, and Hydralazine later than scheduled. Patient's BP during med pass was 96/53. We wanted to see what the BP would do, when it started to climb, we gave the BP meds.
[2024-01-22] MEDS: Levothyroxine 25 MCG TABLET PO (05:28)
[2024-01-22] MEDS: 0.9% Saline Lock 10 ML Syringe IV ×2 (07:19→09:45)
--- NOTE | 2024-01-22 07:30 | PN.URO_ITS ---
Subjective Subjective 83-year-old female with extensive bladder cancer status post second resection in her bladder. Probably still has a residual cancer left in the bladder was very difficult resection extremely bloody I did cauterize extensively to get the bleeding under control. She was given 2 units of blood will give her some fresh frozen plasma to help with hemostasis the urine is completely clear this morning with no bleeding whatsoever so we will remove the catheter and stop CBI. Hep- Lock IV fluids. Suffice to be in the hospital to recover a few days hopefully home by this weekend. Objective Data Objective Data Vital Signs: Vital Signs Temp Pulse Resp BP Pulse Ox O2 Del Method O2 Flow Rate 99.0 F 82 18 164/72 H 100 Room Air 4 01/22/24 07:18 01/22/24 07:18 01/22/24 07:18 01/22/24 07:18 01/22/24 07:18 01/22/24 07:18 01/21/24 13:40 Oxygen Flow Rate (L/min) 4 Oxygen Delivery Method Room Air Weight: 50.1 kg Body Mass Index (BMI) 21.7 Intake & Output: Intake and Output for Last 24 Hours 01/20/24 01/21/24 01/22/24 23:59 23:59 23:59 Intake Total 521.25 / 521.25 430 / 430 517 / 517 Output Total 4850 / 4850 3200 / 3200 7100 / 7100 Balance -4328.75 / -4328.75 -2770 / -2770 -6583 / -6583 Lab / Micro Data 01/21/24 05:43 01/21/24 05:43 Labs: Laboratory Results - last 24 hr 01/20/24 18:30: Blood Type O POSITIVE, Antibody Screen NEGATIVE, Crossmatch See Detail 01/21/24 05:43: Sodium 135 L, Potassium 4.9, Chloride 103, Carbon Dioxide 23.0, Anion Gap 9, BUN 51 H, Creatinine 5.02 H, Estim Creat Clear Calc 5.99, Est GFR (MDRD) Af Amer 11 L, Est GFR (MDRD) Non-Af 9 L, BUN/Creatinine Ratio 10.2, Glucose 101, Calcium 9.2, Magnesium 1.8
--- NOTE | 2024-01-22 07:40 | NURSING ---
Vitals recorded on the TAR for 01/22/2024 at 4:40 am were actually taken at 5:40 am.
[2024-01-22] MEDS: Acetaminophen 325 MG Tablet 650 MG PO (08:47)
[2024-01-22 08:51] LABS: Hematocrit 32.1 % (37-47); Hemoglobin 10.6 g/dL (12.0-15.0); Mean Corpuscular Hgb 29.7 pg (27.0-32.0); Mean Corpuscular Volume 89.9 fL (81-99); Mean Platelet Vol. 11.8 fl (6.2-12.0); Platelet Count 134 K/mm3 (150-450); RBC Distribution Width SD 55.1 fl (35.1-43.9); Red Blood Count 3.57 M/mm3 (4.2-5.4); White Blood Count 17.6 K/mm3 (4.4-11.0)
--- NOTE | 2024-01-22 09:24 | NURSING ---
FFP done, now flushing with 50 cc Normal saline
--- NOTE | 2024-01-22 09:29 | NURSING ---
500cc NS bag flusing
[2024-01-22] MEDS: NIFEdipine 60 MG Tablet PO (09:43)
[2024-01-22] MEDS: Docusate Sodium 100 MG Capsule 200 MG PO ×2 (09:43→23:21)
[2024-01-22] MEDS: Pantoprazole Sodium 40 MG Tablet PO ×2 (09:44→23:23)
[2024-01-22] MEDS: 0.9% Normal Saline (500mL Bag) 500 ML 15 ML IV (09:48)
--- NOTE | 2024-01-22 10:34 | NUR.TO.PHY ---
Patient scheduled for HD today. Pt s/p fisutlagram on 01/21/24. Dialysis Coordinator received fistulagram report directly via phone by Dr. Freeman- Dr. Freeman relayed that fistula did not look great post procedure, but may be adequate. Upon pre-HD assessment today, fistula was pulsatile, w/ absent thrill & absent bruit. Attempted HD via RIJ temp line. Line did not have great pull from either lumen. HD initiated, could not maintain blood flow above 200ml/min of prescribed 300-350 flow. After @ 1.5 hrs, temp line would not sustain flow great enough to continue HD. Tx discontinued. Discussed w/ Solution Designer, tentative consult for new tdc px with general surgery pending family discussion for non-HD related medical issues.
--- NOTE | 2024-01-22 10:45 | PCM.PN.REN ---
Subjective Subjective Sitting up in bed. Denies any complaints except for feeling tired and poor appetite. No overnight events Objective Data Objective Data Vital Signs: Vital Signs Temp Pulse Resp BP Pulse Ox O2 Del Method O2 Flow Rate 97.4 F L 85 14 187/77 H 100 Room Air 4 01/22/24 09:28 01/22/24 10:31 01/22/24 10:31 01/22/24 10:31 01/22/24 09:28 01/22/24 10:01/21/24 13:40 Oxygen Flow Rate (L/min) 4 Oxygen Delivery Method Room Air Weight: 50 kg Body Mass Index (BMI) 21.6 Intake & Output: Intake and Output for Last 24 Hours 01/20/24 01/21/24 01/22/24 23:59 23:59 23:59 Intake Total 521.25 / 521.25 430 / 430 887 / 887 Output Total 4850 / 4850 3200 / 3200 7550 / 7550 Balance -4328.75 / -4328.75 -2770 / -2770 -6663 / -6663 Lab / Micro Data 01/22/24 08:00 01/21/24 05:43 Labs: Laboratory Results - last 24 hr 01/20/24 18:30: Blood Type O POSITIVE, Antibody Screen NEGATIVE, Crossmatch See Detail 01/22/24 08:00: WBC 17.6 H, RBC 3.57 L, Hgb 10.6 L, Hct 32.1 L, MCV 89.9, MCH 29.7, MCHC 33.0, RDW Std Deviation 55.1 H, RDW Coeff of Wiliam 17.0 H, Plt Count 134 L, MPV 11.8 Physical Exam Narrative Alert and oriented no obvious distress s1s2 no murmurs lungs clear abdomen soft no edema Left upper arm AV fistula very faint pulsatile thrill, no bruit +right IJ vas cath CBI to indwelling Dupree, pink-tinged urine Assessment & Plan Assessment/Plan (1) ESRD on hemodialysis: PLAN: - On hemodialysis Friday, Friday, Friday. Patient dialyzed Friday 01/19 using temporary hemodialysis catheter. Could not cannulate left arm AV fistula. Vascular surgery consulted, s/p fistulogram with thrombectomy 01/20. This morning AV fistula very faint pulsatile, no bruit, unable to cannulate for hemodialysis today. Attempted dialysis using temporary right IJ neck hemodialysis catheter but unable to obtain blood flow rate any better than 200 therefore patient taken off dialysis after about 1.5 hours. There is to be a goals of care discussion with Dr. Soliman, patient's family and patient today. Depending on outcome of discussion/goals of care if patient is going to continue aggressive treatment then she will need tunneled hemodialysis catheter placed for dialysis. Discussed this with patient today, she voiced understanding. Surgery team has been consulted for possibility of placing tunneled hemodialysis catheter but waiting till goals of care discussion today.
--- NOTE | 2024-01-22 11:29 | PCM.PN.SRG ---
Subjective Subjective I saw this patient this morning resting in bed. She relays being very tired, states she did not sleep very well at all last night. She reports she had some pain in her left arm/hand, she received some Tylenol this morning which did help. Unfortunately, hemodialysis was not able to be completed today, fistula was without thrill or bruit and her temporary dialysis catheter was not functioning. Plan is now for potential tunneled dialysis catheter placement by general surgery. Objective Data Objective Data Alert and oriented x 3, no apparent distress Able to speak in complete sentences, nonlabored respirations Regular rate and rhythm Left upper extremity AV fistula pulsatile, no thrill or bruit. Access site with sutures intact, no bleeding/hematoma. Left radial and ulnar pulse easily palpable. Left hand is appropriately warm, motor and sensory intact. Vital Signs: Vital Signs Temp Pulse Resp BP Pulse Ox O2 Del Method O2 Flow Rate 97.4 F L 85 14 187/77 H 100 Room Air 4 01/22/24 09:28 01/22/24 10:31 01/22/24 10:31 01/22/24 10:31 01/22/24 09:28 01/22/24 10:49 01/21/24 13:40 Oxygen Flow Rate (L/min) 4 Oxygen Delivery Method Room Air Weight: 110 lb 3.698 oz Body Mass Index (BMI) 21.6 Intake & Output: Intake and Output for Last 24 Hours 01/20/24 01/21/24 01/22/24 23:59 23:59 23:59 Intake Total 521.25 / 521.25 430 / 430 887 / 887 Output Total 4850 / 4850 3200 / 3200 7550 / 7550 Balance -4328.75 / -4328.75 -2770 / -2770 -6663 / -6663 Lab / Micro Data 01/22/24 08:00 01/21/24 05:43 Labs: Laboratory Results - last 24 hr 01/20/24 18:30: Blood Type O POSITIVE, Antibody Screen NEGATIVE, Crossmatch See Detail 01/22/24 08:00: WBC 17.6 H, RBC 3.57 L, Hgb 10.6 L, Hct 32.1 L, MCV 89.9, MCH 29.7, MCHC 33.0, RDW Std Deviation 55.1 H, RDW Coeff of Wiliam 17.0 H, Plt Count 134 L, MPV 11.8 Assessment & Plan Assessment/Plan (1) Arteriovenous fistula stenosis: QUALIFIERS: Encounter type: initial encounter Qualified Code(s): T82.858A - Stenosis of other vascular prosthetic devices, implants and grafts, initial encounter PLAN: She is status post fistulogram with thrombectomy and angioplasty on 01/21/2024. Unfortunately on exam today fistula appears to have already rethrombosed. It was not able to be accessed for dialysis. Her temporary dialysis catheter was also nonfunctioning. General surgery is consulted for potential tunneled hemodialysis catheter placement pending outcome of a goals of care discussion. Charges/Coding Visit Charges Inpatient E&M: 39306 Subs Hosp L1
--- NOTE | 2024-01-22 12:26 | PCM.PN.SRG ---
Subjective Subjective Patient states that she does not feel well today. Patient's family coming to visit later today to discuss goals of care. There was some concern about her wishes as far as continuing dialysis. I asked the patient this morning and she states that she does wish to continue dialysis. Her right IJ temporary dialysis catheter did not seem to be functioning appropriately during dialysis yesterday Objective Data Objective Data Vital Signs: Vital Signs Temp Pulse Resp BP Pulse Ox O2 Del Method O2 Flow Rate 97.8 F 74 18 139/62 H 100 Room Air 4 01/22/24 12:01/22/24 12:01/22/24 12:01/22/24 12:01/22/24 12:01/22/24 12:01/21/24 13:40 Oxygen Flow Rate (L/min) 4 Oxygen Delivery Method Room Air Weight: 110 lb 3.698 oz Body Mass Index (BMI) 21.6 Intake & Output: Intake and Output for Last 24 Hours 01/20/24 01/21/24 01/22/24 23:59 23:59 23:59 Intake Total 521.25 / 521.25 430 / 430 887 / 887 Output Total 4850 / 4850 3200 / 3200 7550 / 7550 Balance -4328.75 / -4328.75 -2770 / -2770 -6663 / -6663 Lab / Micro Data 01/22/24 08:00 01/21/24 05:43 Labs: Laboratory Results - last 24 hr 01/20/24 18:30: Blood Type O POSITIVE, Antibody Screen NEGATIVE, Crossmatch See Detail 01/22/24 08:00: WBC 17.6 H, RBC 3.57 L, Hgb 10.6 L, Hct 32.1 L, MCV 89.9, MCH 29.7, MCHC 33.0, RDW Std Deviation 55.1 H, RDW Coeff of Wiliam 17.0 H, Plt Count 134 L, MPV 11.8 Physical Exam Const oriented x3 and no apparent distress Resp normal respiratory effort Assessment & Plan Assessment/Plan (1) ESRD on hemodialysis: PLAN: The patient is a 83-year-old female with end-stage renal failure as well as bladder cancer. She has a right sided upper extremity fistula however this has clotted off. A temporary catheter was placed on Friday and now seems to be not functioning appropriately. Patient wishes to continue with dialysis. We have made arrangements for tunneled dialysis catheter to be placed tomorrow. Charges/Coding Visit Charges Inpatient E&M: 96854 [facility] Hosp L3
--- NOTE | 2024-01-22 12:45 | NURSING ---
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
--- NOTE | 2024-01-22 15:35 | PCM.PN.HOSP ---
Reason for Visit Reason for Visit: Hematuria Subjective Subjective Patient has no complaints at this time. Ate some breakfast. Unfortunately, dialysis catheter was not working and fistula was not accessible for dialysis today. I did discuss with her placing a tunneled dialysis catheter and she is amenable to this. Objective Data Objective Data Vital Signs: Vital Signs Temp Pulse Resp BP Pulse Ox O2 Del Method O2 Flow Rate 97.8 F 74 18 139/62 H 100 Room Air 4 01/22/24 12:01/22/24 12:01/22/24 12:01/22/24 12:01/22/24 12:01/22/24 12:01/21/24 13:40 Oxygen Flow Rate (L/min) 4 Oxygen Delivery Method Room Air Weight: 50 kg Body Mass Index (BMI) 21.6 Intake & Output: Intake and Output for Last 24 Hours 01/20/24 01/21/24 01/22/24 23:59 23:59 23:59 Intake Total 521.25 / 521.25 430 / 430 887 / 887 Output Total 4850 / 4850 3200 / 3200 7550 / 7550 Balance -4328.75 / -4328.75 -2770 / -2770 -6663 / -6663 Lab / Micro Data 01/22/24 08:00 01/21/24 05:43 Labs: Laboratory Results - last 24 hr 01/20/24 18:30: Blood Type O POSITIVE, Antibody Screen NEGATIVE, Crossmatch See Detail 01/22/24 08:00: WBC 17.6 H, RBC 3.57 L, Hgb 10.6 L, Hct 32.1 L, MCV 89.9, MCH 29.7, MCHC 33.0, RDW Std Deviation 55.1 H, RDW Coeff of Wiliam 17.0 H, Plt Count 134 L, MPV 11.8 Physical Exam Const alert, oriented x3, no apparent distress, average body habitus and well nourished; Negative for healthy appearing Constitutional Narrative: Elderly, , female, sitting up in bed eating breakfast, nursing at bedside, currently appears comfortable, nontoxic HEENT normocephalic, head/scalp atraumatic and hearing grossly normal bilaterally Neck Neck Narrative: Right IJ HD catheter in place, site appears clean and dry. Resp normal respiratory effort, normal air movement, no retractions, no use of accessory muscles and clear to auscultation bilaterally Resp Narrative: Diminished at bases bilaterally Auscultation: Negative for rales, rhonchi or wheezes Cardio regular rate, regular rhythm, S1 normal heart sound, S2 normal heart sound, no rub, no gallops and no clicks; Negative for no murmurs Cardio Narrative: 3 out of 6 systolic murmur GI normal to inspection, nondistended, normoactive bowel sounds, soft to palpation and non-tender Extremity no clubbing, cyanosis or edema Neuro oriented x3, moves all extremities and no focal motor deficits Speech: speech normal Psych mental status grossly normal and affect normal Psych Narrative: Very pleasant, interacts appropriately Assessment & Plan Assessment/Plan (1) Hematuria: (2) Metastatic renal cell carcinoma: PLAN: Plan 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 Ludwig to discuss overall plan of care further with patient and family -Has had a total of 4 units of packed red blood cells -Will continue to monitor hemoglobin and transfuse for further drop or hemoglobin less than 7 -Once hematuria has ceased should be okay for discharge Acute on chronic anemia secondary to acute blood loss in the form of hematuria -Has been transfused 4 units of packed red blood cells during this hospitalization -Continue to monitor hemoglobin -Hemoglobin up to 10.6 today after receiving 2 units of packed red blood cells yesterday postoperatively -Repeat CBC in a.m. Thrombocytopenia -This is mild at 134,000 -Up significantly from her baseline -Patient did receive platelets -Repeat in a.m. End-stage renal disease-HD dependent -HD typically MWF -Fistulogram with thrombectomy PE performed on 01/21/2024, unfortunately, not accessible today and dialysis catheter was not working -Dialysis held today -Plan for tunneled dialysis catheter tomorrow early afternoon -General Surgery consulted-Case discussed Essential hypertension -Patient with history of resistant hypertension -Continue home medications as she is currently taking -Continue to monitor History of neuro paraneoplastic syndrome -Had been on steroids previously and transferred to [facility] for IVIG versus plasmapheresis -Unclear on ultimately what she decided to do however patient's not on any steroids at this time -Monitor mental status Hyperlipidemia -Continue home statin Glaucoma -Continue home eyedrops GERD -Continue home Protonix History of rheumatoid arthritis -Patient takes nothing chronically -Continued outpatient follow-up Hypothyroidism -Continue home levothyroxine DVT prophylaxis -SCDs due to ongoing hematuria CODE STATUS Full code Charges/Coding Visit Charges Inpatient E&M: 90873 Subs Hosp L2
--- NOTE | 2024-01-22 16:09 | NURSING ---
pt no urge to void/no bladder distention felt in abd. pt with very minimal po intake
[2024-01-22] MEDS: Mirtazapine 15 MG Tablet 7.5 MG PO (23:21)
[2024-01-22] MEDS: Atorvastatin Calcium 10 MG Tablet PO (23:21)
[2024-01-22] MEDS: Latanoprost 0.005% 1 Bottle 1 DRP EACH EYE (23:23)
[2024-01-23] VITALS (37 sets, daily range): BP systolic 123–224; BP diastolic 57–94; PULSE 68–96; RESP 14–18; TEMP 36.1–37.3; O2SAT 96–100; BMI 21.6; BMI 20.8
[2024-01-23 05:04] LABS: Hematocrit 25.1 % (37-47); Hemoglobin 8.2 g/dL (12.0-15.0); Mean Corp Hgb Conc 32.7 g/dL (32-36); Mean Corpuscular Hgb 29.8 pg (27.0-32.0); Mean Corpuscular Volume 91.3 fL (81-99); Mean Platelet Vol. 11.7 fl (6.2-12.0); Platelet Count 102 K/mm3 (150-450); RBC Distribution Width CV 17.7 % (11.6-14.6); RBC Distribution Width SD 58.3 fl (35.1-43.9); Red Blood Count 2.75 M/mm3 (4.2-5.4); White Blood Count 12.5 K/mm3 (4.4-11.0)
[2024-01-23 05:27] LABS: Anion Gap 9 (5-15); BUN 74 mg/dL (7-18); Calcium,Total 8.3 mg/dL (8.5-10.1); Chloride 104 mmol/L (98-107); Creatinine, Serum 6.19 mg/dL (0.55-1.02); EST Glomerular Filtration Rate 7 mL/min (>60); Est Glom Filt Rate - Afr Amer 8 mL/min (>60); Estimated Creatinine Clearance 4.86 ml/min; Glucose 98 mg/dL (74-106); Potassium 5.6 mmol/L (3.5-5.1); Sodium Level 135 mmol/L (136-145)
[2024-01-23] MEDS: Pantoprazole Sodium 40 MG Tablet PO ×2 (09:23→21:41)
[2024-01-23] MEDS: Carvedilol 25 MG Tablet PO ×2 (09:23→21:40)
--- NOTE | 2024-01-23 10:07 | CASEMGMT ---
LIZETTE POON reviewed therapy notes. LIZETTE POON into pt room to discuss discharge plan. Reviewed SNF option, pt deferred conversation to her son, agreeable to LIZETTE POON calling son to discuss DC plan. Pt son, Jabier, would like pt to go to [facility] at time of DC. Declined wanting list, states he would like pt to go to [facility] at time of DC. LIZETTE POON back into pt room to confirm [facility], pt agreeable to facility for first choice. Notified SW to send referral.
--- NOTE | 2024-01-23 10:11 | CASEMGMT ---
Addendum entered by Jennifer Washington 01/23/24 11:18: DCA advised of referral request. WALTER Reynoso Original Note: Social Work- Collaboration with RNCM who had spoken to pt and pt son. PT and son request [facility] referral and decline a list, as [facility] is pt preference. WALTER Reynoso
--- NOTE | 2024-01-23 10:24 | PCM.PN.SRG ---
Subjective Subjective No new issues or complaints this morning. Objective Data Objective Data Vital Signs: Vital Signs Temp Pulse Resp BP Pulse Ox O2 Del Method O2 Flow Rate 99.1 F 76 18 175/77 H 98 Room Air 4 01/23/24 09:53 01/23/24 09:53 01/23/24 09:53 01/23/24 09:53 01/23/24 09:53 01/23/24 09:53 01/21/24 13:40 Oxygen Flow Rate (L/min) 4 Oxygen Delivery Method Room Air Weight: 110 lb 0.171 oz Body Mass Index (BMI) 21.6 Intake & Output: Intake and Output for Last 24 Hours 01/21/24 01/22/24 01/23/24 23:59 23:59 23:59 Intake Total 430 / 430 887 / 987 100 / 100 Output Total 3200 / 3200 7550 / 7550 Balance -2770 / -2770 -6663 / -6563 100 / 100 Lab / Micro Data 01/23/24 04:02 01/23/24 04:02 Labs: Laboratory Results - last 24 hr 01/23/24 04:02: WBC 12.5 H, RBC 2.75 L, Hgb 8.2 L, Hct 25.1 L, MCV 91.3, MCH 29.8, MCHC 32.7, RDW Std Deviation 58.3 H, RDW Coeff of Wiliam 17.7 H, Plt Count 102 L, MPV 11.7, Sodium 135 L, Potassium 5.6 H, Chloride 104, Carbon Dioxide 21.0, Anion Gap 9, BUN 74 H, Creatinine 6.19 H, Estim Creat Clear Calc 4.86, Est GFR (MDRD) Af Amer 8 L, Est GFR (MDRD) Non-Af 7 L, BUN/Creatinine Ratio 12.0, Glucose 98, Calcium 8.3 L Physical Exam Const oriented x3 and no apparent distress Constitutional Narrative: Right IJ temporary dialysis catheter in place Assessment & Plan Assessment/Plan (1) ESRD on hemodialysis: PLAN: Plan Patient is an 83-year-old female admitted for bladder malignancy. She also has end-stage renal disease. She has a fistula which is no longer functional. A right IJ temporary dialysis catheter was placed last weekend. She is scheduled for tunneled dialysis catheter placement later today. Continue NPO. Charges/Coding Visit Charges Inpatient E&M: 40116 Subs Hosp L1
--- NOTE | 2024-01-23 10:32 | CASEMGMT ---
Addendum entered by Chiara Hopkins 01/23/24 14:33: [facility] has accepted. Pts dialysis will need switched over to [facility] in-house. MARYAM and RN CM updated. Chiara Hopkins DC Planning Astt. Original Note: Discharge Planning Referral sent via careport to [facility]. Chiara Hopkins DC Planning Asst.
--- NOTE | 2024-01-23 11:49 | PCM.PRE.AN2 ---
ASA Classification* ASA Classification ASA Classification: 3 Assessment & Plan Anesthesia* Anesthesia Assessment Anesthesia Assessment: Discussed sedation and/or anesthesia options, risks, benefits, and alternatives with patient/parents/legal guardian/POA. Questions invited. The patient/parents/legal guardian/POA seems to understand and agrees to proceed with anesthesia plan. Reviewed the physical assessment, medical history, allergy history and patient home medications list prior to surgery/procedure/anesthetic and documented any changes. Performed airway and anesthesia risk assessments. Anesthesia Type Anesthesia Type: MAC Anesthesia Focused Assessment* Temperature: 99.1 F Pulse Rate: 76 Blood Pressure: 175/77 Respiratory Rate: 18 Pulse Ox: 98 Airway Assessment Mouth opens: >3 cm Mallampati Score: II Focused Labs Anesthesia Preop lab: CBC WBC 12.5 K/mm3 (4.4-11.0) H 01/23/24 04:02 RBC 2.75 M/mm3 (4.2-5.4) L 01/23/24 04:02 Hgb 8.2 g/dL (12.0-15.0) L 01/23/24 04:02 Hct 25.1 % (37-47) L 01/23/24 04:02 Plt Count 102 K/mm3 (150-450) L 01/23/24 04:02 CHEMISTRY Potassium 5.6 mmol/L (3.5-5.1) H 01/23/24 04:02 Sodium 135 mmol/L (136-145) L 01/23/24 04:02 Magnesium 1.8 mg/dL (1.6-2.6) 01/21/24 05:43 Phosphorus 7.0 mg/dL (2.5-4.9) H 01/20/24 04:45 BUN 74 mg/dL (7-18) H 01/23/24 04:02 Creatinine 6.19 mg/dL (0.55-1.02) H 01/23/24 04:02 Glucose 98 mg/dL (74-106) 01/23/24 04:02 POC Glucose 285 mg/dL (74-106) H 09/10/23 11:12 TSH 1.270 uIU/mL (0.358-3.740) 01/19/24 05:42 COAG PT 13.7 SECONDS (11.7-14.9) 08/04/23 12:32 Pre-Assessment Diagnosis/Proposed Procedure Planned Operative Procedure(s): isertion hemo dialysis catheter Anesthesia History 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 When Was Last Pacemaker Check QUESTION #4 FULL TEXT: You/Your Family Experience fever (hyperthermia) with Anesthesia Last Oral Intake Last Oral intake: Last Oral Intake NPO since 00:00 01/21/24 11:41 Meds taken in AM with sips of Yes 01/21/24 11:41 water? Meds patient instructed to see MAR 01/21/24 11:41 take am of surgery PONV PONV - hvac field service technician: PONV - hvac field service technician Female Yes 12/31/23 08:18 HX of Motion Sickness No 12/31/23 08:18 HX of N/V After Surgery No 12/31/23 08:18 Non-Smoker Yes 12/31/23 08:18 Duration of Surgery greater Yes 12/31/23 08:18 than 60 minutes Number of Risk Factors 3 12/31/23 08:18 PONV Score Moderate Risk 12/31/23 08:18 Height & Weight Height & Weight: Anesthesia: Height & Weight Height 5 ft 01/21/24 11:41 Weight: 49.9 kg 01/23/24 06:00 Body Mass Index (BMI) 21.6 01/23/24 06:00 Respiratory Assessment Respiratory Assessment - hvac field service technician: Respiratory Tract Infection Hx - hvac field service technician Hx Respiratory Tract Infection No 01/21/24 11:41 STOP Sleep Apnea STOP Sleep Apnea - hvac field service technician: STOP Sleep Apnea - hvac field service technician Hx Hypertension Yes 01/16/24 11:32 Hx Sleep Apnea No 01/21/24 17:56 CPAP BIPAP Do you snore loudly (louder No 01/14/24 19:36 than talking or can be heard Do you often feel tired/ No 01/14/24 19:36 fatigued/ sleepy during daytime? Has anyone observed you stop No 01/14/24 19:36 breathing during sleep? STOP Results Negative 01/21/24 17:10 QUESTION #5 FULL TEXT : Do you snore loudly (louder than talking or can be heard through closed doors)? Tobacco Use History Tobacco Use History - hvac field service technician: Tobacco Use History - hvac field service technician Tobacco Use Non-smoker 07/22/23 11:02 Smoking Status Never smoker 01/14/24 19:36 Hx Tobacco Use No 01/14/24 19:36 Years Smoking Packs Smoked per Day Smoking Cessation Date was within the last 15 years Hx Smoking Cessation Date Hx Smoking Cessation Counseling Hematologic Medial History Hematologic Hx - hvac field service technician: Hematologic Medical Hx - mailing specialist Hx of Blood Transfusion Yes 01/14/24 19:36 Hx of Transfusion in last 3 Yes 01/14/24 19:36 Months Date of Last Transfusion (if 10/202301/14/24 19:36 within last 3 months) Ever experience any problems No 01/14/24 19:36 with transfusion(s)? Specify any problems Hx of Preganancy in last 3 No 01/14/24 19:36 Months Nurse Filling Out Transfusion [id number] 01/14/24 19:36 & Questions: Date: 01/14/24 01/14/24 19:36 Time: 19:49 01/14/24 19:36 Patient unable to answer at this time (ie. confused, unrespo /Reproduction History /Reproductive History - hvac field service technician: /Reproductive Hx- hvac field service technician Hx Now No 01/21/24 11:41 Gestational Age (in weeks): EDC: Hx Hx Para Hx Section SAB No 01/21/24 11:41 Active Medications Active Medications: Current Medications Generic Name Dose Route Start Last Admin Trade Name Freq PRN Reason Stop Dose Admin Acetaminophen 650 mg 01/14/24 14:59 01/22/24 08:47 Acetaminophen 325 Mg Tablet PO 650 mg Q6H PRN PRN Administration Pain Score 1-10 Al Hydrox/Mg Hydrox/Simethicone 30 ml 01/14/24 14:59 Mag /Aluminum/Simeth [facility] Udc 30 Ml Oral.Susp PO Q4H PRN PRN [facility] Atorvastatin Calcium 10 mg 01/15/24 22:00 01/22/24 23:21 Atorvastatin Calcium 10 Mg Tablet PO 10 mg QHS HOWARD Administration Carvedilol 25 mg 01/15/24 10:00 01/23/24 09:23 Carvedilol 25 Mg Tablet PO 25 mg BID HOWARD Administration Protocol Clonidine 0.1 mg 01/14/24 14:57 01/18/24 16:55 Clonidine Hcl 0.1 Mg Tablet PO 0.1 mg Q6H PRN Administration hypertensive emergency Protocol Clonidine HCl 0.1 mg 01/15/24 06:15 01/18/24 06:41 Clonidine Hcl 0.1 Mg Patch TD 0.1 mg ROLON HOWARD Administration Docusate Sodium 200 mg 01/14/24 22:00 01/23/24 09:20 Docusate Sodium 100 Mg Capsule PO Not Given BID [facility] Fentanyl Citrate 25 mcg 01/14/24 21:44 01/15/24 06:02 Fentanyl 100 Mcg/2 Ml Ampul IV 25 mcg Q2H PRN PRN Administration pain 6-10 Hydralazine HCl 100 mg 01/14/24 22:00 01/23/24 06:31 Hydralazine 50 Mg Tablet PO Not Given Q8 [facility] Hydralazine HCl 10 mg 01/19/24 03:29 01/19/24 11:29 Hydralazine 20 Mg/Ml Vial IV 10 mg Q4H PRN PRN Administration SBP GREATER THAN 160 Protocol Sodium Chloride 500 mls @ 15 mls/hr 01/22/24 09:26 01/22/24 09:48 IV Infused PRN PRN Infusion Blood Transfusion Latanoprost 1 drp 01/14/24 21:00 01/22/24 23:23 Latanoprost 0.005% 1 Bottle EACH EYE 1 drp QPM [facility] Administration Levothyroxine Sodium 25 mcg 01/15/24 06:00 01/23/24 06:32 Levothyroxine 25 Mcg Tablet PO Not Given DAILY@0600 [facility] Lisinopril 20 mg 01/15/24 22:00 01/23/24 09:24 Lisinopril 20 Mg Tablet PO Not Given BID [facility] Protocol Menthol 1 applic 01/20/24 21:06 01/20/24 22:14 Menthol 226.8 Gm Jar TOPICAL 1 applic TID PRN PRN Administration Pain/Inflammation Metoclopramide HCl 10 mg 01/14/24 14:59 01/15/24 05:13 Metoclopramide 10 Mg/2 Ml Vial IV 10 mg Q8H PRN PRN Administration NAUSEA/VOMITING Mirtazapine 7.5 mg 01/14/24 22:00 01/22/24 23:21 Mirtazapine 15 Mg Tablet PO 7.5 mg QHS HOWARD Administration Nifedipine 60 mg 01/14/24 22:00 01/23/24 09:23 Nifedipine 60 Mg Tablet PO Not Given BID HOWARD Ondansetron HCl 4 mg 01/14/24 14:59 01/21/24 20:23 Ondansetron 4 Mg/2 Ml Vial IV 4 mg Q8H PRN Administration NAUSEA/VOMITING Pantoprazole Sodium 40 mg 01/14/24 22:00 01/23/24 09:23 Pantoprazole Sodium 40 Mg Tablet PO 40 mg BID HOWARD Administration Sodium Chloride 10 - 40 ml 01/19/24 10:35 01/22/24 09:45 0.9% Saline Lock 10 Ml Syringe IV 20 ml UD PRN Administration SALINE FLUSH PFSH Medical History History of echocardiogram Wears glasses Post-menopausal Cancer Anxiety History of steroid therapy Walker as ambulation aid Low iron High cholesterol Injury of head and neck Syncope Falls Non-smoker ESRD on dialysis Heart murmur Mitral regurgitation Hypothyroidism Vertigo Cardiomyopathy Sjogren syndrome with inflammatory arthritis Arthritis Hyperlipidemia Type 2 diabetes mellitus CKD (chronic kidney disease) stage 5, GFR less than 15 ml/min Bilateral lower extremity edema Macular degeneration Lumbar spinal stenosis Glaucoma Heart failure Osteoporosis Thyroid disease Gastric reflux Hypertension Hx of fracture of wrist Rheumatoid arthritis Kidney failure Cancer Anemia Home Medications ?Medication ?Instructions ?Recorded ?Last Taken ?Type levothyroxine 25 mcg tablet 25 mcg PO DAILY thryoid 06/13/22 01/14/24 History nifedipine 60 mg tablet,extended 60 mg PO BID BLOOD PRESSURE 07/16/23 01/14/24 History release latanoprost 0.005 % eye drops 1 drp EACH EYE QPM glaucoma 09/06/23 Unknown History lisinopril 20 mg tablet 20 mg PO BID hypertension 09/06/23 01/14/24 History atorvastatin 10 mg tablet 10 mg PO DAILY #90 tabs 11/07/23 Unknown Rx clonidine HCl 0.1 mg tablet 0.1 mg PO Q6H PRN hypertensive 11/07/23 Unknown History emergency hydralazine 100 mg tablet 100 mg PO Q8H hypertension 11/07/23 01/14/24 History mirtazapine 7.5 mg tablet 7.5 mg PO QHS 11/07/23 Unknown History pantoprazole 40 mg tablet,delayed 40 mg PO BID 11/07/23 Unknown History release clonidine 0.1 mg/24 hr weekly 1 patch transdermal ROLON 12/09/23 Unknown History transdermal patch carvedilol 25 mg tablet 50 mg PO BID 12/31/23 01/14/24 History Allergy/AdvReac Type Severity Reaction Status Date / Time beef derived (bovine) Allergy Unknown PT UNABLE Verified 01/14/24 13:50 TO RESPOND-NEEDS F/U Pork/Porcine Containing Allergy Unknown PT UNABLE Verified 01/14/24 13:50 Products TO RESPOND-NEEDS F/U adalimumab (From Humira) Allergy Hives Verified 01/14/24 13:50 Family History Mother Heart disease Hypertension Osteoporosis Father CVA (cerebral vascular accident) Hypertension Surgical History History of surgery Hx of esophagogastroduodenoscopy H/O transurethral resection of bladder tumor (TURBT) Hx of colonoscopy S/P total knee arthroplasty S/P vein stripping S/P partial hysterectomy History of bladder surgery History of nephrectomy Social History household members: family Smoking Status: Never smoker alcohol intake: never substance use type: does not use Review of Systems (Anesthesia) ROS Narrative System reviewed and no additional complaints, except as documented.
[2024-01-23] MEDS: Heparin 10,000 UNITS/10 ML Vial 10000 UNITS (12:39)
[2024-01-23] MEDS: Lidocaine 1% (20 ml mdv) 20 ML Vial (12:39)
[2024-01-23] MEDS: Bupivacaine 0.5% PF 10 ML VIAL (12:39)
[2024-01-23] MEDS: Cefazolin 2 GM in 0.9% Normal Saline (100mL Bag) 100 ML IV (12:48)
--- NOTE | 2024-01-23 14:08 | PCM.OPRPT ---
Report of Operation Date of Procedure: 01/23/24 Pre-Operative Diagnosis: End-stage renal failure Post-Operative Diagnosis: End-stage renal failure. Surgery/Procedure Performed:: Right IJ tunneled dialysis catheter placement Surgeon: Sergio Vergara elevator constructor electric: None Type of Anesthesia: MAC Anesthesiologist: Christ Stout Estimated Blood Loss (mL): 10 Description of Procedure: The patient is an 83-year-old female with end stage renal failure in need of a more permanent tunneled dialysis catheter. We discussed the details of the planned procedure and she wished to proceed. She was brought to the operative room today following informed consent. Preoperative antibiotics were given timeout was performed. She was placed supine on the operative table with arms at her side. Once adequately anesthetized the right side of the neck was prepped and draped in the usual sterile manner. Using ultrasound I was able to gain access to the right internal jugular vein. This was performed on the second pass. There was good return of dark red, nonpulsatile venous appearing blood. On the first pass there was an arterial stick however manual pressure was held. Once venous access was obtained guidewire was then used. This was then clipped to the drapes. C-arm was brought in to confirm appropriate positioning of the guidewire. Next the location involving the right upper chest was identified as the entry point of the tunneled catheter. This was about 5 cm from the entry point of the guidewire. #11 blade was then used to make an incision at the entry point of the guidewire as well as a 15 blade was used to make an incision at the entry point of the tunnel in the skin. Local anesthetic was injected prior to any skin incision or insertion of a needle. The tunneler was attached to the catheter and was tunneled into the incision on the chest and up and out through the incision in the neck. Once this was performed serial dilation of the catheter tract was performed over the guidewire. Finally the tear-away sheath and dilator were then advanced over the guidewire. The guidewire and dilator were removed thus leaving the sheath in place. The free end of the catheter was then threaded into the sheath. This sheath was then extracted while the tubing was advanced. This was then tested with injectable saline. It allegra and flushed easily. C arm was then utilized to confirm good positioning. The catheter was then secured to the skin with a [id number] at the beginning of the tunnel. The catheter itself was then sutured to the skin as well. Skin Glue and 5-0 Vicryl was used to close the neck incision. A central line dressing was then applied. She was awakened from anesthesia and taken the PACU in good condition for chest x-ray will be performed. Grafts/Implants Used: Palindrome 14.5 Citizen Of [place] by 19 cm chronic dual-lumen catheter Complications None Procedures Vascular Studies CF Procedures [id number]: Other Procedure See Report ([id number] - tunneled dyalisis catheter)
--- NOTE | 2024-01-23 14:10 | PCM.POST.ANE ---
Anesthesia: Postop Eval I Current Vital Signs Temperature: 98.1 F Pulse Rate: 74 Blood Pressure: 153/79 Respiratory Rate: 16 Pulse Ox: 100 Oxygen Delivery Method: Nasal Cannula Oxygen Flow Rate (L/min): 2 Assessment Airway patent: Yes Spontaneous unlabored respirations: Yes Mental status: Awake nausea: No Vomiting: No Anesthesia Complication: No Fluid Hydration Crystalloid volume administer (ml): 100 Total IV fluid infused: 100 Progress Note Anesthesia document: Postop Eval 1 completed: Yes
--- NOTE | 2024-01-23 14:20 | RAD_ITS ---
INDICATION: new port EXAMINATION/TECHNIQUE: X-RAY - XR Chest 1 View COMPARISON: January 17, 2024 FINDINGS: LINES/DEVICES: Right venous line with tip at the proximal SVC. LUNGS: No consolidation, edema or effusion. No pneumothorax. MEDIASTINUM AND CARDIOVASCULAR STRUCTURES: Cardiac silhouette not enlarged. Central airways and mediastinal contour are unremarkable. BONES AND SOFT TISSUES: Unremarkable. RAD/CXR for Line Placement IMPRESSION: No radiographic evidence of acute cardiopulmonary disease. Electronically Signed: Prashant Cordova DO at 17:27 EDT ,
--- NOTE | 2024-01-23 14:49 | CASEMGMT ---
Social Work- SW called and spoke with son Jabier to discuss [facility] acceptance and also the need to switch to [facility] during time there. Pt son is agreeable. DCA updated. Pt updated. WALTER Reynoso
--- NOTE | 2024-01-23 16:16 | SUR.PHASEI ---
DR DWYER NOTIFIED AT 1550 THAT DRESSING IS STARTING TO BLEED THROUGH DESPITE DERMABOND AND SUTURES. PRESSURE APPLIED AT THIS TIME. DR DWYER CONTINUES TO PUT SUTURES IN SURICAL SITE AT 1558. [place] ON INCISION SITE AT 1604 UNTIL HE FINISHES OTHER CASE, THEN WILL COME BACK TO CHECK ON PATIENT.
[2024-01-23 17:07] LABS: Glycoprotein IV Antibody Negative (Negative)
[2024-01-23] MEDS: hydrALAZINE 50 MG Tablet 100 MG PO ×2 (17:36→21:40)
[2024-01-23] MEDS: NIFEdipine 60 MG Tablet PO ×2 (17:38→21:41)
[2024-01-23] MEDS: PureFlow B 2K Dialysis Soln 1 BAG 6 BAG PF (17:41)
[2024-01-23] MEDS: 0.9% Normal Saline 1,000 ML IV.SOLN. 1000 ML OPERA.SITE (17:41)
[2024-01-23] MEDS: Epoetin Alfa epbx 10,000 UNIT/ML 20000 UNIT IV (17:42)
[2024-01-23 18:43] LABS: Hepatitis B Surface Antigen Non-Reactive (Nonreactive)
--- NOTE | 2024-01-23 19:19 | PCM.PN.REN ---
Subjective Subjective events noted Objective Data Objective Data Vital Signs: Vital Signs Temp Pulse Resp BP Pulse Ox O2 Del Method O2 Flow Rate 98.1 F 78 15 216/90 H 100 Room Air 2 01/23/24 18:20 01/23/24 19:00 01/23/24 19:00 01/23/24 19:00 01/23/24 19:00 01/23/24 19:00 01/23/24 14:11 Oxygen Flow Rate (L/min) 2 Oxygen Delivery Method Room Air Weight: 49.9 kg Body Mass Index (BMI) 21.6 Intake & Output: Intake and Output for Last 24 Hours 01/21/24 01/22/24 01/23/24 23:59 23:59 23:59 Intake Total 430 / 430 887 / 987 210 / 210 Output Total 3200 / 3200 7550 / 7550 Balance -2770 / -2770 -6663 / -6563 210 / 210 Lab / Micro Data 01/23/24 04:02 01/23/24 04:02 Labs: Laboratory Results - last 24 hr 01/19/24 17:19: Plt Glycoprotein Ab Negative 01/23/24 04:02: WBC 12.5 H, RBC 2.75 L, Hgb 8.2 L, Hct 25.1 L, MCV 91.3, MCH 29.8, MCHC 32.7, RDW Std Deviation 58.3 H, RDW Coeff of Wiliam 17.7 H, Plt Count 102 L, MPV 11.7, Sodium 135 L, Potassium 5.6 H, Chloride 104, Carbon Dioxide 21.0, Anion Gap 9, BUN 74 H, Creatinine 6.19 H, Estim Creat Clear Calc 4.86, Est GFR (MDRD) Af Amer 8 L, Est GFR (MDRD) Non-Af 7 L, BUN/Creatinine Ratio 12.0, Glucose 98, Calcium 8.3 L 01/23/24 17:45: Hep Bs Antigen Non-Reactive Radiography Diagnostic Testing: Radiology Impression Chest X-Ray 01/23/24 14:20 IMPRESSION: No radiographic evidence of acute cardiopulmonary disease. Electronically Signed: Prashant Cordova DO at 17:27 EDT , Physical Exam Narrative Alert and oriented no obvious distress s1s2 no murmurs lungs clear abdomen soft no edema Left upper arm AV fistula very faint pulsatile thrill, no bruit +right IJ vas cath CBI to indwelling Dupree, pink-tinged urine Assessment & Plan Assessment/Plan (1) ESRD on hemodialysis: PLAN: - On hemodialysis Friday, Friday, Friday. Patient dialyzed Friday 01/19 using temporary hemodialysis catheter. Could not cannulate left arm AV fistula. Vascular surgery consulted, s/p fistulogram with thrombectomy 01/20. unable to cannulate for hemodialysis. Attempted dialysis using temporary right IJ neck hemodialysis catheter but unable to obtain blood flow rate any better than 200 therefore patient taken off dialysis after about 1.5 hours. family meeting yesterday tunneled line today HD after
[2024-01-23] MEDS: 0.9% Saline Lock 10 ML Syringe IV ×2 (19:55→21:36)
[2024-01-23] MEDS: Heparin 10,000 UNITS/10 ML Vial IV (19:56)
--- NOTE | 2024-01-23 20:09 | PN.HOSP_ITS ---
Reason for Visit Reason for Visit: Hematuria Subjective Subjective No issues overnight. Got tunneled dialysis catheter today and now on dialysis. Objective Data Objective Data Vital Signs: Vital Signs Temp Pulse Resp BP Pulse Ox O2 Del Method O2 Flow Rate 98.1 F 80 14 199/86 H 100 Room Air 2 01/23/24 19:21 01/23/24 19:30 01/23/24 19:30 01/23/24 19:30 01/23/24 19:30 01/23/24 19:30 01/23/24 14:11 Oxygen Flow Rate (L/min) 2 Oxygen Delivery Method Room Air Weight: 49.9 kg Body Mass Index (BMI) 21.6 Intake & Output: Intake and Output for Last 24 Hours 01/21/24 01/22/24 01/23/24 23:59 23:59 23:59 Intake Total 430 / 430 887 / 987 210 / 210 Output Total 3200 / 3200 7550 / 7550 Balance -2770 / -2770 -6663 / -6563 210 / 210 Lab / Micro Data 01/23/24 04:02 01/23/24 04:02 Labs: Laboratory Results - last 24 hr 01/19/24 17:19: Plt Glycoprotein Ab Negative 01/23/24 04:02: WBC 12.5 H, RBC 2.75 L, Hgb 8.2 L, Hct 25.1 L, MCV 91.3, MCH 29.8, MCHC 32.7, RDW Std Deviation 58.3 H, RDW Coeff of Wiliam 17.7 H, Plt Count 102 L, MPV 11.7, Sodium 135 L, Potassium 5.6 H, Chloride 104, Carbon Dioxide 21.0, Anion Gap 9, BUN 74 H, Creatinine 6.19 H, Estim Creat Clear Calc 4.86, Est GFR (MDRD) Af Amer 8 L, Est GFR (MDRD) Non-Af 7 L, BUN/Creatinine Ratio 12.0, Glucose 98, Calcium 8.3 L 01/23/24 17:45: Hep Bs Antigen Non-Reactive Radiography Diagnostic Testing: Radiology Impression Chest X-Ray 01/23/24 14:20 IMPRESSION: No radiographic evidence of acute cardiopulmonary disease. Electronically Signed: Prashant Cordova DO at 17:27 EDT , Physical Exam Const alert, oriented x3, no apparent distress, average body habitus and well nourished; Negative for healthy appearing Constitutional Narrative: Elderly, [place], female, lying in bed on dialysis, family at bedside, dialysis nursing at bedside, currently appears comfortable, nontoxic General Appearance: cooperative Narrative: CBI ongoing with bright reddish fluid noted in catheter bag. 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 -Management per urology -Previous BCG infusion but patient did not tolerate -Ongoing hematuria with continuous bladder irrigation -Went to the OR 01/21/2024--> Per documentation there is extensive tumor--> still plans for aggressive management -Has had a total of 4 units of packed red blood cells -Will continue to monitor hemoglobin and transfuse for further drop or hemoglobin less than 7 -Once hematuria has ceased should be okay for discharge Acute on chronic anemia secondary to acute blood loss in the form of hematuria -Has been transfused 4 units of packed red blood cells during this hospitalization -Continue to monitor hemoglobin -Hemoglobin 8.2 today but in need of dialysis -Repeat CBC in a.m. Thrombocytopenia -102,000 today which is worse from yesterday however she had platelet transfusion prior to surgery -Up significantly from her baseline -Patient did receive platelets -Repeat in a.m. End-stage renal disease-HD dependent -HD typically MWF--> on dialysis currently -Fistulogram with thrombectomy PE performed on 01/21/2024, unfortunately, not accessible today and dialysis catheter was not working -Tunneled dialysis catheter placed today with temporary removal and on dialysis currently with good functioning catheter Essential hypertension -Patient with history of resistant hypertension -Continue home medications as she is currently taking -Continue to monitor History of neuro paraneoplastic syndrome -Had been on steroids previously and transferred to [facility] for IVIG versus plasmapheresis -Unclear on ultimately what she decided to do however patient's not on any steroids at this time -Monitor mental status Hyperlipidemia -Continue home statin Glaucoma -Continue home eyedrops GERD -Continue home Protonix History of rheumatoid arthritis -Patient takes nothing chronically -Continued outpatient follow-up Hypothyroidism -Continue home levothyroxine DVT prophylaxis -SCDs due to ongoing hematuria CODE STATUS Full code Charges/Coding Visit Charges Inpatient E&M: 43148 Subs Hosp L1
[2024-01-23] MEDS: Acetaminophen 325 MG Tablet 650 MG PO (21:35)
[2024-01-23] MEDS: Latanoprost 0.005% 1 Bottle 1 DRP EACH EYE (21:38)
[2024-01-23] MEDS: Docusate Sodium 100 MG Capsule 200 MG PO (21:40)
[2024-01-23] MEDS: Mirtazapine 15 MG Tablet 7.5 MG PO (21:41)
[2024-01-23] MEDS: Atorvastatin Calcium 10 MG Tablet PO (21:43)
[2024-01-23] MEDS: Lisinopril 20 MG Tablet PO (21:44)
[2024-01-24] VITALS (8 sets, daily range): BP systolic 128–163; BP diastolic 56–73; PULSE 67–80; RESP 14–19; TEMP 36.7–37.1; O2SAT 98–100; BMI 23.4
[2024-01-24] MEDS: Acetaminophen 325 MG Tablet 650 MG PO ×2 (04:25→21:07)
[2024-01-24] MEDS: Levothyroxine 25 MCG TABLET PO (06:14)
[2024-01-24] MEDS: hydrALAZINE 50 MG Tablet 100 MG PO ×3 (06:14→20:58)
[2024-01-24 07:38] LABS: Hematocrit 26.2 % (37-47); Hemoglobin 8.3 g/dL (12.0-15.0); Mean Corp Hgb Conc 31.7 g/dL (32-36); Mean Corpuscular Hgb 30.1 pg (27.0-32.0); Mean Corpuscular Volume 94.9 fL (81-99); Mean Platelet Vol. 11.5 fl (6.2-12.0); Platelet Count 114 K/mm3 (150-450); RBC Distribution Width CV 17.5 % (11.6-14.6); RBC Distribution Width SD 59.6 fl (35.1-43.9); Red Blood Count 2.76 M/mm3 (4.2-5.4); White Blood Count 11.9 K/mm3 (4.4-11.0)
[2024-01-24 08:20] LABS: Anion Gap 8 (5-15); BUN 48 mg/dL (7-18); BUN/Creat Ratio 10.3 RATIO (10-20); Calcium,Total 7.9 mg/dL (8.5-10.1); Chloride 105 mmol/L (98-107); Creatinine, Serum 4.66 mg/dL (0.55-1.02); EST Glomerular Filtration Rate 10 mL/min (>60); Est Glom Filt Rate - Afr Amer 12 mL/min (>60); Estimated Creatinine Clearance 6.46 ml/min; Glucose 99 mg/dL (74-106); Potassium 5.4 mmol/L (3.5-5.1); Sodium Level 134 mmol/L (136-145)
--- NOTE | 2024-01-24 09:24 | PCM.TXEXTCAR ---
Diet Diet Order/Speech Therapy: 01/23/24 14:21 Diet: Renal - General Dietary Modifications:: Consistent Carbohydrate Type of Dietary Supplement:: Nepro Routine Orders/Code Status Suppository Frequency: Daily PRN Code Status: Full Code Wound(s) bladder: Wound Type: Surgical Incision Dressing Change: Dry Sterile Dressing LUE: Wound Type: fistulogram site Right neck: Wound Type: Surgical Incision Problem/Diagnosis (1) Hematuria: Status: Acute Code(s): R31.9 - Hematuria, unspecified (2) Metastatic renal cell carcinoma: Status: Acute Code(s): C64.9 - Malignant neoplasm of unspecified kidney, except renal pelvis Allergies/Procedures Done in Hospital Allergies beef derived (bovine) Allergy (Unknown, Verified 01/14/24 13:50) PT UNABLE TO RESPOND-NEEDS F/U Pork/Porcine Containing Products Allergy (Unknown, Verified 01/14/24 13:50) PT UNABLE TO RESPOND-NEEDS F/U adalimumab (From Humira) Allergy (Verified 01/14/24 13:50) Hives Type of Care/Length of Stay Estimated LOS: Convalescent Care Less Than 30 days Type of Care Needed: Skilled Rehab Potential: Fair Prognosis: Fair Additional Orders/Day of Discharge Day of Discharge: 01/24/24 Dietary and Speech Recommendations Dietitian Recommendations/Changes: ADAT to Renal General/CCD diet when medically able to manage medical conditions. Recommend 120mL Nepro TID with meals to provide supplemental energy once diet has advanced. Follow Up Care Please Follow Up With: Dusty Soliman MD Discharge Plan Admission Admit Date/Time: 01/14/24 18:13 Primary Reason for Your Visit: resection of bladder cancer Attending Provider: Dusty Soliman Primary Care Provider: Jacky Morgan Consulting Providers: Allie Macias; Travon Bowers; Jacky Morgan; Conchis Petit; Tabby Palmer NP; Yazmin Mckeon; Surya Curry; Maryana Washburn; Maryana Lynn; Lizzy Richards; Sergio Vergara; Kelli Casas; Sung Freeman Instructions Patient Instructions: Transurethral Bladder Tumor Dc Discharge Orders/Prescriptions Prescriptions: Continued atorvastatin 10 mg tablet 10 mg PO DAILY Qty: 90 1RF hydralazine 100 mg tablet 100 mg PO Q8H mirtazapine 7.5 mg tablet 7.5 mg PO QHS pantoprazole 40 mg tablet,delayed release (DR/EC) 40 mg PO BID clonidine HCl 0.1 mg tablet 0.1 mg PO Q6H PRN (Reason: hypertensive emergency) Patient Comments: for SBP >180 levothyroxine 25 mcg Tablet 25 mcg PO DAILY nifedipine 60 mg tablet extended release 60 mg PO BID clonidine 0.1 mg/24 hr patch weekly 1 patch transdermal ROLON lisinopril 20 mg tablet 20 mg PO BID latanoprost 0.005 % drops 1 drp EACH EYE QPM carvedilol 25 mg tablet 50 mg PO BID Referrals / Follow Up: Jacky Morgan MD [Primary Care Provider] - Dusty Soliman MD [Med Staff - Active Staff] - Disposition Disposition (needs filled in before D/C Order can be placed): Home, Self Care
--- NOTE | 2024-01-24 09:26 | PCM.DC.SUM ---
Providers Date of Admission: 01/14/24 Date of Discharge: 01/24/24 Primary Care Physician: Dr. Jacky Morgan MD Consultations 01/14/24 14:58 Consult: Hospitalist Routine Consulting Provider: [facility] Reason for Consult: medical manegment, HTN, Dialysis EMERGENT Consult: No Notified: Yes Date Notified: 01/14/24 Time Notified: 20:30 Method of Notification: Verbal 01/14/24 18:15 Consult: Nephrology Routine Consulting Provider: Lizzy Richards Reason for Consult: in patient dialyssi EMERGENT Consult: No Notified: Yes Date Notified: 01/15/24 Time Notified: 06:39 Method of Notification: Answering Service 01/16/24 17:00 Consult: General Surgery Routine Consulting Provider: Sergio Vergara Reason for Consult: temporary HD catheter placement EMERGENT Consult: No Notified: Yes Date Notified: 01/16/24 Time Notified: 17:00 Method of Notification: Answering Service 01/19/24 11:03 Consult: Vascular Surgery Routine Consulting Provider: Sung Freeman Reason for Consult: Fistula issues LUE EMERGENT Consult: No Notified: Yes Date Notified: 01/19/24 Time Notified: 12:03 Method of Notification: Text 01/22/24 08:17 Consult: General Surgery Routine Consulting Provider: Sergio Vergara Reason for Consult: Tunneled HD cath EMERGENT Consult: No Notified: Yes Date Notified: 01/22/24 Time Notified: 08:17 Method of Notification: Text Reason For Visit: BLADDER CANCER Diagnosis Discharge Diagnosis (1) Hematuria: Status: Acute Code(s): R31.9 - Hematuria, unspecified (2) Metastatic renal cell carcinoma: Status: Acute Code(s): C64.9 - Malignant neoplasm of unspecified kidney, except renal pelvis (3) Bladder cancer: Status: Acute Code(s): C67.9 - Malignant neoplasm of bladder, unspecified (4) ESRD on hemodialysis: Status: Chronic Code(s): N18.6 - End stage renal disease; Z99.2 - Dependence on renal dialysis Medications at Discharge Home Medications levothyroxine 25 mcg tablet 25 mcg PO DAILY thryoid 06/13/22 nifedipine 60 mg tablet,extended release 60 mg PO BID BLOOD PRESSURE 07/16/23 latanoprost 0.005 % eye drops 1 drp EACH EYE QPM glaucoma 09/06/23 lisinopril 20 mg tablet 20 mg PO BID hypertension 09/06/23 atorvastatin 10 mg tablet 10 mg PO DAILY #90 tabs 11/07/23 clonidine HCl 0.1 mg tablet 0.1 mg PO Q6H PRN hypertensive emergency 11/07/23 hydralazine 100 mg tablet 100 mg PO Q8H hypertension 11/07/23 mirtazapine 7.5 mg tablet 7.5 mg PO QHS 11/07/23 pantoprazole 40 mg tablet,delayed release 40 mg PO BID 11/07/23 clonidine 0.1 mg/24 hr weekly transdermal patch 1 patch transdermal ROLON 12/09/23 carvedilol 25 mg tablet 50 mg PO BID 12/31/23 Hospital Course Summary of Care Provided Minutes Spent on Discharge: 35 Hospital Course: 83-year-old female with multiple medical problems including renal cell carcinoma bladder cancer end-stage renal disease on hemodialysis she has a history of bladder cancer had a nephro ureterectomy on cystoscopy she was found to have extensive amount of superficial cancer with it throughout her bladder. Prior care for her bladder cancer was at the [facility] last cystoscopy what by them was unclear exactly what they saw but they recommended BCG therapy she did not tolerate BCG therapy would we attempted to treatments and she had a significant complications after this so I did a cystoscopy in the office and saw extensive mount of superficial cancer in the bladder set her up for surgery after dialysis and what we did a resection of the bladder cancer took about 3 hours to resect an extensive amount of cancer within the bladder, had extensive mount of bleeding from this resection she required intensive care unit follow-up afterwards and blood transfusion most the time she was hypertensive as she has a history of high blood pressure. She had continuous bleeding with irrigation so eventually since the bleeding would not stop I took her back to surgery and had to give her transfusion of platelets to get her platelets up and also fresh frozen plasma and another 2 units of blood and then resected more tumor out of her bladder but mostly just cauterized the bladder to get the bleeding to stop. The following day the bleeding did finally stop the catheter was removed but unfortunately then she had a collapse in her dialysis fistula in her arm, vascular surgery attended the balloon dilate the fistula but was not successful and had an arteriovenous fistula stenosis so nonfunctioning fistula, she had a temporary dialysis catheter placed but then this clotted off. So then general surgery put in a tunneled dialysis catheter. She is now postop day 1 from a tunneled dialysis catheter, the catheter is functioning properly she had dialysis yesterday. She is clinically stable this morning denies any pain some soreness from the catheter placement in her neck but otherwise is clinically stable he will globin blood work is stable. But for her long hospital stay she has some significant decline in overall function so it is decided to have her transferred to extended-care facility for rehab and improvement. So she will go home with that she will go home with her normal medications. She does not have a Dupree catheter in. She can resume her dialysis per nephrology using the tunneled dialysis catheter. And she will follow-up in urology in a few weeks after discharge. Physical Exam Const alert and oriented x3 General Appearance: cooperative HEENT normocephalic, head/scalp atraumatic, EAC's normal and TM's normal bilaterally Eyes PERRL and EOMs intact bilaterally Pupil: sluggish Neck no lymphadenopathy, supple and no JVD General: trachea midline Lymph Lymphatic: no lymphadenopathy noted, lymphedema and lymphadenopathy Resp normal respiratory effort, normal air movement and clear to auscultation bilaterally Cardio regular rate, regular rhythm and peripheral pulses 2+ throughout GI soft to palpation, non-tender and non-distended Extremity normal capillary refill and no clubbing, cyanosis or edema General Extremity: no tenderness to palpation of joints or extremities Skin no rashes or lesions noted General Skin Exam: turgor normal Lesions: no lesions Rashes: no rashes Neuro CN's II-XII intact bilaterally Speech: speech normal Motor Exam: strength 5/5 throughout; Negative for general weakness Psych thought process normal, cooperative and affect normal Appearance: appropriate Weight / BMI Weight Weight: 48.1 kg Body Mass Index (BMI) 20.8 ABG / Lab / Microbiology Data 01/24/24 07:30 01/24/24 07:30 Laboratory: Laboratory Results - last 24 hr 01/19/24 17:19: Plt Glycoprotein Ab Negative 01/23/24 17:45: Hep Bs Antigen Non-Reactive 01/24/24 07:30: WBC 11.9 H, RBC 2.76 L, Hgb 8.3 L, Hct 26.2 L, MCV 94.9, MCH 30.1, MCHC 31.7 L, RDW Std Deviation 59.6 H, RDW Coeff of Wiliam 17.5 H, Plt Count 114 L, MPV 11.5, Sodium 134 L, Potassium 5.4 H, Chloride 105, Carbon Dioxide 21.0, Anion Gap 8, BUN 48 H, Creatinine 4.66 H, Estim Creat Clear Calc 6.46, Est GFR (MDRD) Af Amer 12 L, Est GFR (MDRD) Non-Af 10 L, BUN/Creatinine Ratio 10.3, Glucose 99, Calcium 7.9 L Radiography Diagnostic Testing: Radiology Impression Chest X-Ray 01/23/24 14:20 IMPRESSION: No radiographic evidence of acute cardiopulmonary disease. Electronically Signed: Prashant Cordova DO at 17:27 EDT Reading Location ID and State: [facility] / [place] Tel [phone], Service support , D/C Instructions Discharge Diet: No restrictions Discharge Activity: Return to Normal Activity Weight Bearing Status: Weight bearing as tolerated Suture Line Care: Avoid Pulling/Pushing and Avoid Pinching/Bending Please Follow Up With: Dusty Soliman MD When: Call [phone] for an appointment Meaningful Use Info Meaningful Use Meaningful Use Diagnoses (Choose all that apply): None applicable Ischemic Stroke Statin Dosing Therapy Reference: STATIN DOSE THERAPY REFERENCE: * Patients > 75 years receive moderate or high dose statin therapy. * Patients 75 years or YOUNGER should receive HIGH intensity statin dose unless contraindicated. You will be required to document reason for non-treatment if statin daily dose does not meet guidelines. HIGH DOSE STATIN THERAPY DAILY Atorvastatin > than or = to 40 mg Rosuvastatin > than or = to 20 mg Amlodipine + Atorvastatin > than or = to 2.5/40 mg Ezetimibe + Simvastatin 10/80 mg Simvastatin 80mg Discharge Plan Admission Admit Date/Time: 01/14/24 18:13 Primary Reason for Your Visit: resection of bladder cancer Attending Provider: Dusty Soliman Primary Care Provider: Jacky Morgan Consulting Providers: Allie Macias; Travon Bowers; Jacky Morgan; Conchis Petit; Tabby Palmer NP; Yazmin Mckeon; Surya Curry; Maryana Washburn; Maryana Lynn; Lizzy Richards; Sergio Vergara; Kelli Casas; Sung Freeman Instructions Patient Instructions: Transurethral Bladder Tumor Dc Discharge Orders/Prescriptions Prescriptions: Continued atorvastatin 10 mg tablet 10 mg PO DAILY Qty: 90 1RF hydralazine 100 mg tablet 100 mg PO Q8H mirtazapine 7.5 mg tablet 7.5 mg PO QHS pantoprazole 40 mg tablet,delayed release (DR/EC) 40 mg PO BID clonidine HCl 0.1 mg tablet 0.1 mg PO Q6H PRN (Reason: hypertensive emergency) Patient Comments: for SBP >180 levothyroxine 25 mcg Tablet 25 mcg PO DAILY nifedipine 60 mg tablet extended release 60 mg PO BID clonidine 0.1 mg/24 hr patch weekly 1 patch transdermal ROLON lisinopril 20 mg tablet 20 mg PO BID latanoprost 0.005 % drops 1 drp EACH EYE QPM carvedilol 25 mg tablet 50 mg PO BID Referrals / Follow Up: Jacky Morgan MD [Primary Care Provider] - Dusty Soliman MD [Med Staff - Active Staff] - Disposition Disposition (needs filled in before D/C Order can be placed): Home, Self Care
[2024-01-24] MEDS: Pantoprazole Sodium 40 MG Tablet PO ×2 (10:09→20:59)
[2024-01-24] MEDS: Lisinopril 20 MG Tablet PO ×2 (10:09→20:59)
[2024-01-24] MEDS: Docusate Sodium 100 MG Capsule 200 MG PO ×2 (10:09→20:59)
[2024-01-24] MEDS: NIFEdipine 60 MG Tablet PO ×2 (10:10→20:58)
[2024-01-24] MEDS: Carvedilol 25 MG Tablet PO ×2 (10:10→20:58)
--- NOTE | 2024-01-24 12:49 | PN.HOSP_ITS ---
Reason for Visit Reason for Visit: Hematuria Subjective Subjective No issues overnight. Patient states she is feeling better than yesterday as she was fairly tired and fatigued after the last 2 days of interventions. Has just finished breakfast. No complaints. Is amenable to discharge to skilled facility for rehab. Objective Data Objective Data Vital Signs: Vital Signs Temp Pulse Resp BP Pulse Ox O2 Del Method O2 Flow Rate 98.4 F 74 19 H 157/69 H 100 Room Air 2 01/24/24 10:02 01/24/24 10:02 01/24/24 10:02 01/24/24 10:02 01/24/24 10:02 01/24/24 10:02 01/23/24 14:11 Oxygen Flow Rate (L/min) 2 Oxygen Delivery Method Room Air Weight: 54.091 kg Body Mass Index (BMI) 23.4 Intake & Output: Intake and Output for Last 24 Hours 01/22/24 01/23/24 01/24/24 23:59 23:59 23:59 Intake Total 887 / 987 260 / 260 100 / 100 Output Total 7550 / 7550 1800 / 1800 Balance -6663 / -6563 -1540 / -1540 100 / 100 Lab / Micro Data 01/24/24 07:30 01/24/24 07:30 Labs: Laboratory Results - last 24 hr 01/19/24 17:19: Plt Glycoprotein Ab Negative 01/23/24 17:45: Hep Bs Antigen Non-Reactive 01/24/24 07:30: WBC 11.9 H, RBC 2.76 L, Hgb 8.3 L, Hct 26.2 L, MCV 94.9, MCH 30.1, MCHC 31.7 L, RDW Std Deviation 59.6 H, RDW Coeff of Wiliam 17.5 H, Plt Count 114 L, MPV 11.5, Sodium 134 L, Potassium 5.4 H, Chloride 105, Carbon Dioxide 21.0, Anion Gap 8, BUN 48 H, Creatinine 4.66 H, Estim Creat Clear Calc 6.46, Est GFR (MDRD) Af Amer 12 L, Est GFR (MDRD) Non-Af 10 L, BUN/Creatinine Ratio 10.3, Glucose 99, Calcium 7.9 L Radiography Diagnostic Testing: Radiology Impression Chest X-Ray 01/23/24 14:20 IMPRESSION: No radiographic evidence of acute cardiopulmonary disease. Electronically Signed: Prashant Art DO at 17:27 EDT , Physical Exam Const alert, oriented x3, no apparent distress and average body habitus; Negative for healthy appearing Constitutional Narrative: Elderly, female, sitting up in bed, appears comfortable, urology at bedside, patient does not appear toxic General Appearance: cooperative HEENT head/scalp atraumatic and moist oral mucous membranes Head and Scalp: normocephalic Narrative: CBI ongoing with bright reddish fluid noted in catheter bag. 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 -Management per urology -Previous BCG infusion but patient did not tolerate -Ongoing hematuria with continuous bladder irrigation -Went to the OR 01/21/2024--> Per documentation there is extensive tumor--> still plans for aggressive management -Has had a total of 4 units of packed red blood cells -Will continue to monitor hemoglobin and transfuse for further drop or hemoglobin less than 7 -Once hematuria has ceased should be okay for discharge Acute on chronic anemia secondary to acute blood loss in the form of hematuria -Has been transfused 4 units of packed red blood cells during this hospitalization -Continue to monitor hemoglobin -Hemoglobin stable at 8.3 from 8.2 yesterday Thrombocytopenia - stable and chronic End-stage renal disease-HD dependent -HD typically MWF -Fistulogram with thrombectomy PE performed on 01/21/2024, unfortunately, not accessible today and dialysis catheter was not working -Tunneled dialysis catheter placed 01/23/2024 with temporary removal and on dialysis currently with good functioning catheter Essential hypertension -Patient with history of resistant hypertension -Continue home medications as she is currently taking -Continue to monitor History of neuro paraneoplastic syndrome -Had been on steroids previously and transferred to [facility] for IVIG versus plasmapheresis -Unclear on ultimately what she decided to do however patient's not on any steroids at this time -Monitor mental status Hyperlipidemia -Continue home statin Glaucoma -Continue home eyedrops GERD -Continue home Protonix History of rheumatoid arthritis -Patient takes nothing chronically -Continued outpatient follow-up Hypothyroidism -Continue home levothyroxine DVT prophylaxis -SCDs due to ongoing hematuria CODE STATUS Full code Disposition: -Patient is medically cleared for discharge and this was discussed with Dr. Soliman from urology Charges/Coding Visit Charges Inpatient E&M: 75318 Subs Hosp L1
--- NOTE | 2024-01-24 13:33 | CASEMGMT ---
Social work Hepatitis Labs sent to [facility] and request for pt to admit today. Per [facility], [facility] has not yet cleared pt for dialysis at [facility]. Pt to remain in hospital until this is approved. Charge nurse and physician updated. WALTER Quintanilla
--- NOTE | 2024-01-24 15:28 | PCM.PN.REN ---
Subjective Subjective no new events Objective Data Objective Data Vital Signs: Vital Signs Temp Pulse Resp BP Pulse Ox O2 Del Method O2 Flow Rate 98.1 F 71 17 161/68 H 100 Room Air 2 01/24/24 15:17 01/24/24 15:19 01/24/24 15:17 01/24/24 15:19 01/24/24 15:17 01/24/24 15:17 01/23/24 14:11 Oxygen Flow Rate (L/min) 2 Oxygen Delivery Method Room Air Weight: 54.091 kg Body Mass Index (BMI) 23.4 Intake & Output: Intake and Output for Last 24 Hours 01/22/24 01/23/24 01/24/24 23:59 23:59 23:59 Intake Total 887 / 987 260 / 260 100 / 100 Output Total 7550 / 7550 1800 / 1800 Balance -6663 / -6563 -1540 / -1540 100 / 100 Lab / Micro Data 01/24/24 07:30 01/24/24 07:30 Labs: Laboratory Results - last 24 hr 01/19/24 17:19: Plt Glycoprotein Ab Negative 01/23/24 17:45: Hep Bs Antigen Non-Reactive 01/24/24 07:30: WBC 11.9 H, RBC 2.76 L, Hgb 8.3 L, Hct 26.2 L, MCV 94.9, MCH 30.1, MCHC 31.7 L, RDW Std Deviation 59.6 H, RDW Coeff of Wiliam 17.5 H, Plt Count 114 L, MPV 11.5, Sodium 134 L, Potassium 5.4 H, Chloride 105, Carbon Dioxide 21.0, Anion Gap 8, BUN 48 H, Creatinine 4.66 H, Estim Creat Clear Calc 6.46, Est GFR (MDRD) Af Amer 12 L, Est GFR (MDRD) Non-Af 10 L, BUN/Creatinine Ratio 10.3, Glucose 99, Calcium 7.9 L Radiography Diagnostic Testing: Radiology Impression Chest X-Ray 01/23/24 14:20 IMPRESSION: No radiographic evidence of acute cardiopulmonary disease. Electronically Signed: Prashant Cordova DO at 17:27 EDT , Physical Exam Narrative Alert and oriented no obvious distress s1s2 no murmurs lungs clear abdomen soft no edema Left upper arm AV fistula very faint pulsatile thrill, no bruit +right IJ vas cath CBI to indwelling [place], pink-tinged urine Assessment & Plan Assessment/Plan (1) ESRD on hemodialysis: PLAN: - On hemodialysis Friday, Friday, Friday. Tunneled line was placed since fistula could not be used. Status post dialysis. Discharge plans as per primary.
--- NOTE | 2024-01-24 15:59 | PN.SURG_ITS ---
Subjective Subjective Patient seen and examined during AM rounds. Neither patient nor nursing observed any further difficulty with bleeding overnight. Patient denies any awareness of any difficulties with her catheter during dialysis following her tunneled catheter insertion yesterday. Objective Data Objective Data Vital Signs: Vital Signs Temp Pulse Resp BP Pulse Ox O2 Del Method O2 Flow Rate 98.1 F 71 17 161/68 H 100 Room Air 2 01/24/24 15:17 01/24/24 15:19 01/24/24 15:17 01/24/24 15:19 01/24/24 15:17 01/24/24 15:17 01/23/24 14:11 Oxygen Flow Rate (L/min) 2 Oxygen Delivery Method Room Air Weight: 119 lb 4 oz Body Mass Index (BMI) 23.4 Intake & Output: Intake and Output for Last 24 Hours 01/22/24 01/23/24 01/24/24 23:59 23:59 23:59 Intake Total 887 / 987 260 / 260 220 / 220 Output Total 7550 / 7550 1800 / 1800 Balance -6663 / -6563 -1540 / -1540 220 / 220 Lab / Micro Data 01/24/24 07:30 01/24/24 07:30 Labs: Laboratory Results - last 24 hr 01/19/24 17:19: Plt Glycoprotein Ab Negative 01/23/24 17:45: Hep Bs Antigen Non-Reactive 01/24/24 07:30: WBC 11.9 H, RBC 2.76 L, Hgb 8.3 L, Hct 26.2 L, MCV 94.9, MCH 30.1, MCHC 31.7 L, RDW Std Deviation 59.6 H, RDW Coeff of Wiliam 17.5 H, Plt Count 114 L, MPV 11.5, Sodium 134 L, Potassium 5.4 H, Chloride 105, Carbon Dioxide 21.0, Anion Gap 8, BUN 48 H, Creatinine 4.66 H, Estim Creat Clear Calc 6.46, Est GFR (MDRD) Af Amer 12 L, Est GFR (MDRD) Non-Af 10 L, BUN/Creatinine Ratio 10.3, Glucose 99, Calcium 7.9 L Radiography Diagnostic Testing: Radiology Impression Chest X-Ray 01/23/24 14:20 IMPRESSION: No radiographic evidence of acute cardiopulmonary disease. Electronically Signed: Prashant Cordova DO at 17:27 EDT Reading Location ID and State: [facility] / [place] Tel [phone], Service support , Physical Exam Chest Chest Narrative: Patient with chlorhexidine central line dressing as well as a pressure dressing over her right tunneled IJ catheter site. No evidence of subcutaneous hematoma or fluctuance about the insertion site. I am concerned about the integrity of patient's chlorhexidine dressing as her pressure dressing resides underneath this dressing and is elevating the superior medial edge. Assessment & Plan Assessment/Plan (1) ESRD on hemodialysis: PLAN: Plan Patient is an 83-year-old female admitted for bladder malignancy. She also has end-stage renal disease. She has a fistula which is no longer functional. A right IJ temporary dialysis catheter was placed last weekend but became dysfunctional and also the patient required tunneling on the line for disposition purposes. She is postop day 1 from this procedure and confirms that the new catheter performed adequately for dialysis yesterday. There is no evidence of ongoing bleeding as seen immediately following her line placement yesterday. I was concerned about the occlusive nests of her sterile line dressing with the underlying pressure dressing so the operative dressings were taken down, the site was prepped sterilely with chlorhexidine, and a new chlorhexidine line dressing was placed around the patient's tunneled dialysis catheter with sterile technique. At this juncture General Surgery will sign off but remain available to primary team and nephrology should any issues arise in the future. Thank you for this consultation. John Paul Rodriguez MD General Surgery Endocrine Surgery Pager: [facility] [address] [place] [address], [address] [place] [address] Office: [phone] Charges/Coding Visit Charges Inpatient E&M: 64535 Subs Hosp L2
[2024-01-24] MEDS: 0.9% Saline Lock 10 ML Syringe IV (20:53)
[2024-01-24] MEDS: Latanoprost 0.005% 1 Bottle 1 DRP EACH EYE (20:54)
[2024-01-24] MEDS: Atorvastatin Calcium 10 MG Tablet PO (20:59)
[2024-01-24] MEDS: Mirtazapine 15 MG Tablet 7.5 MG PO (20:59)
[2024-01-25] VITALS (8 sets, daily range): BP systolic 150–188; BP diastolic 65–75; PULSE 73–86; RESP 16–19; TEMP 36.4–36.9; O2SAT 97–100; BMI 23.5
[2024-01-25] MEDS: Levothyroxine 25 MCG TABLET PO (05:37)
[2024-01-25] MEDS: hydrALAZINE 50 MG Tablet 100 MG PO ×3 (05:37→20:37)
[2024-01-25] MEDS: cloNIDine HCl 0.1 MG Patch TD (05:38)
[2024-01-25] MEDS: Acetaminophen 325 MG Tablet 650 MG PO ×2 (05:40→20:37)
[2024-01-25] MEDS: 0.9% Saline Lock 10 ML Syringe IV ×2 (05:41→20:45)
[2024-01-25] MEDS: MENTHOL 226.8 GM JAR 1 APPLIC TOPICAL (05:43)
[2024-01-25 05:58] LABS: Hematocrit 26.5 % (37-47); Hemoglobin 8.5 g/dL (12.0-15.0); Mean Corp Hgb Conc 32.1 g/dL (32-36); Mean Corpuscular Hgb 29.9 pg (27.0-32.0); Mean Corpuscular Volume 93.3 fL (81-99); Mean Platelet Vol. 11.3 fl (6.2-12.0); Platelet Count 135 K/mm3 (150-450); RBC Distribution Width CV 16.8 % (11.6-14.6); Red Blood Count 2.84 M/mm3 (4.2-5.4); White Blood Count 11.2 K/mm3 (4.4-11.0)
[2024-01-25] MEDS: NIFEdipine 60 MG Tablet PO ×2 (10:12→20:38)
[2024-01-25] MEDS: Carvedilol 25 MG Tablet PO ×2 (10:13→20:38)
[2024-01-25] MEDS: Pantoprazole Sodium 40 MG Tablet PO ×2 (10:13→20:39)
[2024-01-25] MEDS: Lisinopril 20 MG Tablet PO ×2 (10:13→20:40)
[2024-01-25] MEDS: Docusate Sodium 100 MG Capsule 200 MG PO ×2 (10:13→20:38)
[2024-01-25 11:07] LABS: Hematocrit 27.9 % (37-47)
--- NOTE | 2024-01-25 11:17 | PCM.PN.GU ---
Subjective Subjective Patient clinically stable, did report some blood in the urine this is not unexpected given that her prior surgery and extensive Ramirez cancer in her bladder but she is clinically stable while waiting for bed at rehab and transfer to rehab once bed available. Objective Data Objective Data Vital Signs: Vital Signs Temp Pulse Resp BP Pulse Ox O2 Del Method O2 Flow Rate 98.5 F 81 16 187/70 H 100 Room Air 2 01/25/24 10:09 01/25/24 10:01/25/24 10:01/25/24 10:01/25/24 10:01/25/24 10:40 01/23/24 14:11 Oxygen Flow Rate (L/min) 2 Oxygen Delivery Method Room Air Weight: 54.4 kg Body Mass Index (BMI) 23.5 Intake & Output: Intake and Output for Last 24 Hours 01/23/24 01/24/24 01/25/24 23:59 23:59 23:59 Intake Total 260 / 260 340 / 340 Output Total 1800 / 1800 Balance -1540 / -1540 340 / 340 Lab / Micro Data 01/25/24 10:52 01/24/24 07:30 Labs: Laboratory Results - last 24 hr 01/25/24 05:15: WBC 11.2 H, RBC 2.84 L, Hgb 8.5 L, Hct 26.5 L, MCV 93.3, MCH 29.9, MCHC 32.1, RDW Std Deviation 56.0 H, RDW Coeff of Wiliam 16.8 H, Plt Count 135 L, MPV 11.3 01/25/24 10:52: Hgb 9.0 L, Hct 27.9 L
--- NOTE | 2024-01-25 13:39 | PN.HOSP_ITS ---
Reason for Visit Reason for Visit: Gross hematuria Subjective Subjective Patient has developed some recurrent hematuria which is likely to be expected with her history. Will wait for urology input to see if anything else needs to be done. Patient with no other issues. We did discuss that she will need to follow-up with Dr. Freeman after discharge to have her fistula reevaluated and possibly revised. Objective Data Objective Data Vital Signs: Vital Signs Temp Pulse Resp BP Pulse Ox O2 Del Method O2 Flow Rate 98.5 F 81 16 187/70 H 100 Room Air 2 01/25/24 10:09 01/25/24 10:01/25/24 10:01/25/24 10:09 01/25/24 10:01/25/24 10:40 01/23/24 14:11 Oxygen Flow Rate (L/min) 2 Oxygen Delivery Method Room Air Weight: 54.4 kg Body Mass Index (BMI) 23.5 Intake & Output: Intake and Output for Last 24 Hours 01/23/24 01/24/24 01/25/24 23:59 23:59 23:59 Intake Total 260 / 260 340 / 340 Output Total 1800 / 1800 Balance -1540 / -1540 340 / 340 Lab / Micro Data 01/25/24 10:52 01/24/24 07:30 Labs: Laboratory Results - last 24 hr 01/19/24 17:19: Eluate Anti-Plt IIb/IIIa , Eluate Anti-Plt Ia/IIa , Eluate Anti- Plt Ib/IX , HLA Ab Specif Class I 01/25/24 05:15: WBC 11.2 H, RBC 2.84 L, Hgb 8.5 L, Hct 26.5 L, MCV 93.3, MCH 29.9, MCHC 32.1, RDW Std Deviation 56.0 H, RDW Coeff of Wiliam 16.8 H, Plt Count 135 L, MPV 11.3 01/25/24 10:52: Hgb 9.0 L, Hct 27.9 L Physical Exam Const alert, oriented x3, no apparent distress, average body habitus and well nourished; Negative for healthy appearing Constitutional Narrative: Elderly, Dominican female, sitting up in bed, appears comfortable, nursing at bedside, patient appears comfortable and not toxic, does appear markedly debilitated General Appearance: cooperative HEENT normocephalic, head/scalp atraumatic and hearing grossly normal bilaterally Resp normal respiratory effort, normal air movement, no retractions, no use of accessory muscles and clear to auscultation bilaterally Auscultation: Negative for rales, rhonchi or wheezes Cardio regular rate, regular rhythm, S1 normal heart sound, S2 normal heart sound, no rub, no gallops and no clicks; Negative for no murmurs Cardio Narrative: 3 out of 6 systolic murmur GI normal to inspection, nondistended, normoactive bowel sounds, soft to palpation, non-tender and non-distended Narrative: Extremity no clubbing, cyanosis or edema Skin Skin Narrative: Tunneled IJ and right chest-dressing is clean dry and intact Neuro oriented x3 and moves all extremities Speech: speech normal Psych mental status grossly normal and affect normal Psych Narrative: Patient appears tired but eye contact is good and interacts appropriately Assessment & Plan Assessment/Plan (1) Hematuria: (2) Metastatic renal cell carcinoma: PLAN: Plan 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 -Management per urology -Previous BCG infusion but patient did not tolerate -Ongoing hematuria with continuous bladder irrigation -Went to the OR 01/21/2024--> Per documentation there is extensive tumor--> still plans for aggressive management -Has had a total of 4 units of packed red blood cells -Will continue to monitor hemoglobin and transfuse for further drop or hemoglobin less than 7 -Once hematuria has ceased should be okay for discharge Acute on chronic anemia secondary to acute blood loss in the form of hematuria -Has been transfused 4 units of packed red blood cells during this hospitalization -Continue to monitor hemoglobin -Hemoglobin stable at 8.3 from 8.2 yesterday Thrombocytopenia - stable and chronic End-stage renal disease-HD dependent -HD typically MWF -Fistulogram with thrombectomy PE performed on 01/21/2024, unfortunately, not accessible today and dialysis catheter was not working -Tunneled dialysis catheter placed 01/23/2024 with temporary removal and on dialysis currently with good functioning catheter Essential hypertension -Patient with history of resistant hypertension -Continue home medications as she is currently taking -Continue to monitor History of neuro paraneoplastic syndrome -Had been on steroids previously and transferred to [facility] for IVIG versus plasmapheresis -Unclear on ultimately what she decided to do however patient's not on any steroids at this time -Monitor mental status Hyperlipidemia -Continue home statin Glaucoma -Continue home eyedrops GERD -Continue home Protonix History of rheumatoid arthritis -Patient takes nothing chronically -Continued outpatient follow-up Hypothyroidism -Continue home levothyroxine DVT prophylaxis -SCDs due to ongoing hematuria CODE STATUS Full code Disposition: -Patient is medically cleared for discharge and this was discussed with Dr. Soliman from urology Charges/Coding Visit Charges Inpatient E&M: 25509 Subs Hosp L2
[2024-01-25] MEDS: Latanoprost 0.005% 1 Bottle 1 DRP EACH EYE (20:36)
[2024-01-25] MEDS: Atorvastatin Calcium 10 MG Tablet PO (20:38)
[2024-01-25] MEDS: Mirtazapine 15 MG Tablet 7.5 MG PO (20:39)
[2024-01-26] VITALS (13 sets, daily range): BP systolic 123–198; BP diastolic 67–87; PULSE 67–94; RESP 14–20; TEMP 36.3–36.9; O2SAT 98–100; BMI 22.8; BMI 21.6
[2024-01-26] MEDS: Acetaminophen 325 MG Tablet 650 MG PO ×2 (02:52→14:09)
[2024-01-26] MEDS: hydrALAZINE 20 MG/ML Vial 10 MG IV (02:53)
[2024-01-26] MEDS: Levothyroxine 25 MCG TABLET PO (06:05)
[2024-01-26] MEDS: hydrALAZINE 50 MG Tablet 100 MG PO ×2 (06:05→14:00)
[2024-01-26 06:54] LABS: Hematocrit 24.8 % (37-47); Hemoglobin 7.9 g/dL (12.0-15.0); Mean Corp Hgb Conc 31.9 g/dL (32-36); Mean Corpuscular Hgb 30.3 pg (27.0-32.0); Platelet Count 151 K/mm3 (150-450); RBC Distribution Width CV 17.1 % (11.6-14.6); RBC Distribution Width SD 56.9 fl (35.1-43.9); Red Blood Count 2.61 M/mm3 (4.2-5.4); White Blood Count 11.3 K/mm3 (4.4-11.0)
[2024-01-26 07:23] LABS: Anion Gap 12 (5-15); BUN 69 mg/dL (7-18); BUN/Creat Ratio 9.9 RATIO (10-20); Calcium,Total 8.9 mg/dL (8.5-10.1); Chloride 103 mmol/L (98-107); Creatinine, Serum 6.94 mg/dL (0.55-1.02); EST Glomerular Filtration Rate 6 mL/min (>60); Est Glom Filt Rate - Afr Amer 7 mL/min (>60); Estimated Creatinine Clearance 4.33 ml/min; Glucose 93 mg/dL (74-106); Potassium 5.8 mmol/L (3.5-5.1); Sodium Level 136 mmol/L (136-145)
--- NOTE | 2024-01-26 07:29 | PN.HOSP_ITS ---
Reason for Visit Reason for Visit: Diagnoses Malignant neoplasm of unspecified kidney, except renal pelvis (01/14/24) Malignant neoplasm of bladder, unspecified (01/14/24) Essential (primary) hypertension (01/14/24) Hypertensive crisis, unspecified (01/14/24) End stage renal disease (01/14/24) Hematuria, unspecified (01/14/24) Stenosis of other vascular prosthetic devices, implants and grafts, initial encounter (01/14/24) Dependence on renal dialysis (01/14/24) Objective Data Objective Data Vital Signs: Vital Signs Temp Pulse Resp BP Pulse Ox O2 Del Method O2 Flow Rate 97.8 F 93 20 H 186/87 H 100 Room Air 2 01/26/24 06:03 01/26/24 06:05 01/26/24 06:03 01/26/24 06:05 01/26/24 06:03 01/26/24 06:03 01/23/24 14:11 Oxygen Flow Rate (L/min) 2 Oxygen Delivery Method Room Air Weight: 116 lb 6.465 oz Body Mass Index (BMI) 22.8 Intake & Output: Intake and Output for Last 24 Hours 01/24/24 01/25/24 01/26/24 23:59 23:59 23:59 Intake Total 340 / 340 220 / 220 0 / 0 Balance 340 / 340 220 / 220 0 / 0 Lab / Micro Data 01/26/24 06:08 01/26/24 06:08 Labs: Laboratory Results - last 24 hr 01/19/24 17:19: Eluate Anti-Plt IIb/IIIa , Eluate Anti-Plt Ia/IIa , Eluate Anti- Plt Ib/IX , HLA Ab Specif Class I 01/25/24 10:52: Hgb 9.0 L, Hct 27.9 L 01/26/24 06:08: WBC 11.3 H, RBC 2.61 L, Hgb 7.9 L, Hct 24.8 L, MCV 95.0, MCH 30.3, MCHC 31.9 L, RDW Std Deviation 56.9 H, RDW Coeff of Wiliam 17.1 H, Plt Count 151, MPV 11.0, Sodium 136, Potassium 5.8 H, Chloride 103, Carbon Dioxide 21.0, Anion Gap 12, BUN 69 H, Creatinine 6.94 H, Estim Creat Clear Calc 4.33, Est GFR (MDRD) Af Amer 7 L, Est GFR (MDRD) Non-Af 6 L, BUN/Creatinine Ratio 9.9 L, Glucose 93, Calcium 8.9 Physical Exam Narrative Seen and examined. No acute complaint. Waiting for establishment of long-term outpatient hemodialysis. Patient is physically deconditioned Physical exam General: Alert, Oriented x3, Cooperative. Fatigue. BMI 21.5 kg/m? HEENT: Atraumatic, PERRLA, EOMI, Normocephalic Oral: No Gingival or Mucosal Lesions/ Ulcerations Neck: Supple, No JVD, Negative Carotid Bruits Chest wall/Lungs: Air entry diminished in bilateral lung bases. No crepitation/rhonchi Cardiovascular: Regular rate, Regular Rhythm, Normal S1, Normal S2, No M/G/R Abdomen: Bowel Sounds Present, Soft, Non Tender, Non-Distended : On hemodialysis. Left arm AV fistula not functioning. Tunneled dialysis catheter. No renal angle tenderness. No suprapubic tenderness. Extremities: No edema, Capillary Refill Less than 3 Seconds Skin: No rashes, No breakdown Musculoskeletal: ROM restricted over knees and hip joints. Chronic degenerative arthritis. Power 4/5 at knees and hip joints. Muscle bulk mild to moderate chronic atrophy. Neurological: Cranial nerves II-XII grossly intact, DTR 2+/4. No acute focal neurological deficit. 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 Platelet count 151,000. Acute on chronic anemia secondary to acute blood loss in the form of hematuria -Has been transfused 4 units of packed red blood cells during this hospitalization -Continue to monitor hemoglobin Hemoglobin low but did not require transfusion 01/09/2024 Thrombocytopenia - stable and chronic End-stage renal disease-HD dependent -HD typically MWF -Fistulogram with thrombectomy PE performed on 01/21/2024, unfortunately, not accessible today and dialysis catheter was not working -Tunneled dialysis catheter placed 01/23/2024 with temporary removal and on dialysis currently with good functioning catheter Essential hypertension -Patient with history of resistant hypertension -Continue home medications as she is currently taking -Continue to monitor History of neuro paraneoplastic syndrome -Had been on steroids previously and transferred to [facility] for IVIG versus plasmapheresis -Unclear on ultimately what she decided to do however patient's not on any steroids at this time -Monitor mental status Hyperlipidemia -Continue home statin Glaucoma -Continue home eyedrops GERD -Continue home Protonix History of rheumatoid arthritis -Patient takes nothing chronically -Continued outpatient follow-up Hypothyroidism -Continue home levothyroxine DVT prophylaxis -SCDs due to ongoing hematuria CODE STATUS Full code Patient is being discharged to [facility] by urology service. Hospitalist team will sign off Charges/Coding Visit Charges Inpatient E&M: 69310 Subs Hosp L2
[2024-01-26] MEDS: Lisinopril 20 MG Tablet PO (07:58)
[2024-01-26] MEDS: Pantoprazole Sodium 40 MG Tablet PO (07:58)
[2024-01-26] MEDS: Docusate Sodium 100 MG Capsule 200 MG PO (07:58)
[2024-01-26] MEDS: NIFEdipine 60 MG Tablet PO (07:58)
[2024-01-26] MEDS: Carvedilol 25 MG Tablet PO (07:58)
[2024-01-26] MEDS: 0.9% Normal Saline 1,000 ML IV.SOLN. 1000 ML OPERA.SITE (08:24)
[2024-01-26] MEDS: 0.9% Saline Lock 10 ML Syringe IV ×2 (08:25→10:18)
[2024-01-26] MEDS: PureFlow B 2K Dialysis Soln 1 BAG 6 BAG PF (08:25)
[2024-01-26] MEDS: Epoetin Alfa epbx 10,000 UNIT/ML 20000 UNIT IV (09:11)
--- NOTE | 2024-01-26 10:53 | CASEMGMT ---
Last 3 dialysis tx notes [facility] to [facility] at this time.
--- NOTE | 2024-01-26 11:45 | CASEMGMT ---
Discharge Planning [facility] report that everything is set for patient to admit with dialysis services in-house through [facility]. SW updated. Chiara Hopkins DC Planning Asst.
--- NOTE | 2024-01-26 11:56 | CASEMGMT ---
Social Work [facility] dialysis has been arranged.? Physician updated and pt is ready for discharge today.? DCA notified of discharge. Disposition: [facility], skilled level of care under convalescent stay. WALTER Reynoso
--- NOTE | 2024-01-26 12:24 | CASEMGMT ---
Discharge Planning Discharge orders, signed med list, and transport time sent to [facility] via [facility]. Physicians will transport patient by wheelchair at 3p. Nursing, SW, and pts son (Jabier) updated. Chiara Hopkins DC Planning Asst.
--- NOTE | 2024-01-26 14:55 | PCM.PN.REN ---
Subjective Subjective seen on HD today Objective Data Objective Data Vital Signs: Vital Signs Temp Pulse Resp BP Pulse Ox O2 Del Method O2 Flow Rate 97.4 F L 78 14 174/77 H 100 Room Air 2 01/26/24 10:30 01/26/24 14:00 01/26/24 10:30 01/26/24 14:00 01/26/24 10:30 01/26/24 11:02 01/23/24 14:11 Oxygen Flow Rate (L/min) 2 Oxygen Delivery Method Room Air Weight: 49.9 kg Body Mass Index (BMI) 21.6 Intake & Output: Intake and Output for Last 24 Hours 01/24/24 01/25/24 01/26/24 23:59 23:59 23:59 Intake Total 340 / 340 220 / 220 0 / 0 Output Total 1380 / 1380 Balance 340 / 340 220 / 220 -1380 / -1380 Lab / Micro Data 01/26/24 06:08 01/26/24 06:08 Labs: Laboratory Results - last 24 hr 01/26/24 06:08: WBC 11.3 H, RBC 2.61 L, Hgb 7.9 L, Hct 24.8 L, MCV 95.0, MCH 30.3, MCHC 31.9 L, RDW Std Deviation 56.9 H, RDW Coeff of Wiliam 17.1 H, Plt Count 151, MPV 11.0, Sodium 136, Potassium 5.8 H, Chloride 103, Carbon Dioxide 21.0, Anion Gap 12, BUN 69 H, Creatinine 6.94 H, Estim Creat Clear Calc 4.33, Est GFR (MDRD) Af Amer 7 L, Est GFR (MDRD) Non-Af 6 L, BUN/Creatinine Ratio 9.9 L, Glucose 93, Calcium 8.9 Physical Exam Narrative Alert and oriented no obvious distress s1s2 no murmurs lungs clear abdomen soft no edema Const no apparent distress Assessment & Plan Assessment/Plan (1) ESRD on hemodialysis: PLAN: - On hemodialysis Friday, Friday, Friday. Tunneled line was placed since fistula could not be used. seen on HD today. says she does not feel great today hyperkalemia. HD on 2 K bath CIERA and iron with HD ordered not much edema overall Bp acceptable
== END 2024-01-26 15:11 | disposition skilled nursing facility (03) | DRG 668 ==
LOC: SDC 18:16 → MS3 18:16 → ICU 18:59 → MS2 01-20 06:25 → MS3 01-20 16:46
PROVIDERS: Anesthesiology; Family Medicine; Hospitalist; Internal Medicine; Internal Medicine Nephrology; Surgery; Admitting Provider Urology; PCP Internal Medicine; Referring Provider Urology; Visit Provider Urology
PROC: 0T5B8ZZ Destruction of Bladder, Via Natural or Artificial Opening Endoscopic (ICD-10-PCS; CPT 51720; principal; 2024-01-14 14:20)
PROC: 0TBB8ZZ Excision of Bladder, Via Natural or Artificial Opening Endoscopic (ICD-10-PCS; principal; 2024-01-21 13:40)
PROC: 0JH63XZ Insertion of Tunneled Vascular Access Device into Chest Subcutaneous Tissue and Fascia, Percutaneous Approach (ICD-10-PCS; principal; 2024-01-23 11:45)
DX: C67.9 Malignant neoplasm of bladder, unspecified (principal); N18.6 End stage renal disease; I13.2 Hypertensive heart and chronic kidney disease with heart failure and with stage 5 chronic kidney disease, or end stage renal disease; T82.818A Embolism due to vascular prosthetic devices, implants and grafts, initial encounter; D62 Acute posthemorrhagic anemia; T82.858A Stenosis of other vascular prosthetic devices, implants and grafts, initial encounter; C64.9 Malignant neoplasm of unspecified kidney, except renal pelvis; E11.22 Type 2 diabetes mellitus with diabetic chronic kidney disease; E03.9 Hypothyroidism, unspecified; F32.A Depression, unspecified; D50.9 Iron deficiency anemia, unspecified; K21.9 Gastro-esophageal reflux disease without esophagitis; I95.81 Postprocedural hypotension; E78.5 Hyperlipidemia, unspecified; Z99.2 Dependence on renal dialysis; F41.9 Anxiety disorder, unspecified; E87.5 Hyperkalemia; E11.39 Type 2 diabetes mellitus with other diabetic ophthalmic complication; Z82.3 Family history of stroke; R53.81 Other malaise; H40.9 Unspecified glaucoma; R31.0 Gross hematuria
CPT/HCPCS: 36415; 36905; 71045; 76000; 76937; 80048; 83036; 83735; 84100; 84443; 85014; 85018; 85025; 85027; 86022; 86850; 86900; 86901; 86920; 86922; 86965; 87340; 88307; 90937; 93005; 94668; 94762; 97110; 97162; 97166; 97530; 99152; 99153; C1725; C1769; C2623; J7030; J7040; J7120; J9280; P9016; P9037; Q9967; A4216; C1750; C1752; C1757; G0257; J2405; J2597; J2916; P9017; Q5106

== ENCOUNTER → 2024-02-02 05:00 | Outpatient (REF) | payer MEDICARE, OTHER, SELFPAY ==
[2024-02-02 08:19] LABS: Hemoglobin 8.6 g/dL (12.0-15.0); Mean Corp Hgb Conc 30.7 g/dL (32-36); Mean Corpuscular Hgb 30.4 pg (27.0-32.0); Mean Corpuscular Volume 98.9 fL (81-99); POSITIVE MORPHOLOGY YES; Platelet Count 115 K/mm3 (150-450); RBC Distribution Width CV 18.3 % (11.6-14.6); RBC Distribution Width SD 66.1 fl (35.1-43.9); Red Blood Count 2.83 M/mm3 (4.2-5.4); White Blood Count 6.3 K/mm3 (4.4-11.0)
[2024-02-02 08:27] LABS: Scan Indicated on CBC? Y/N YES- FLAGS NOTED
[2024-02-02 11:13] LABS: Anion Gap 11 (5-15); BUN 42 mg/dL (7-18); BUN/Creat Ratio 6.4 RATIO (10-20); Calcium,Total 9.1 mg/dL (8.5-10.1); Chloride 98 mmol/L (98-107); Creatinine, Serum 6.52 mg/dL (0.55-1.02); EST Glomerular Filtration Rate 6 mL/min (>60); Est Glom Filt Rate - Afr Amer 8 mL/min (>60); Glucose 86 mg/dL (74-106); Potassium 5.5 mmol/L (3.5-5.1); Sodium Level 133 mmol/L (136-145)
== END ==
LOC: OLS.SW 05:00
PROVIDERS: PCP Internal Medicine; Visit Provider Internal Medicine
DX: C64.9 Malignant neoplasm of unspecified kidney, except renal pelvis (principal); N18.6 End stage renal disease; Z99.2 Dependence on renal dialysis; M35.00 Sjogren syndrome, unspecified
CPT/HCPCS: 36415; 80048; 85027

== ENCOUNTER → 2024-02-20 | Outpatient (CLI) | payer MEDICARE, OTHER, SELFPAY ==
--- NOTE | 2024-02-20 13:51 | VDUE_ITS ---
Reason For Study: Preop Fistula Right Arm Left Arm Rt Brachial A: 0.43cm x 0.39cm, 148 cm/s Lt Brachial A: 0.50cm x 0.55cm, 90cm/s Rt Radial A: 0.27cm x 0.27cm, 82 cm/s. Lt Radial A: 0.24cm x 0.22cm, 75cm/s. Cephalic Vein at distal forearm measures Cephalic Vein at distal forearm measures 0.13cm x 0.13 cm. 0.10cm x 0.13 cm. Cephalic Vein at mid forearm measures Cephalic Vein at mid forearm measures 0.09cm x 0.11cm x 0.16 cm. 0.12 cm. Cephalic Vein proximal forearm measures Cephalic Vein proximal forearm measures 0.17cm 0.11cm x 0.14 cm. x 0.17 cm. Cephalic Vein distal upper arm measures Cephalic Vein distal upper arm measures 0.15cm 0.40cm x 0.45 cm. x 0.17 cm. Cephalic Vein at mid upper arm measures Cephalic Vein at mid upper arm measures 0.08cm 0.12cm x 0.15 cm. x 0.09 cm. Cephalic Vein at proximal upper arm Cephalic Vein at proximal upper arm measures measures 0.12cm x 0.10 cm. 0.13cm x 0.12 cm. Proximal Basilic vein measures 0.34cm x Lt BasilicV/Brachial A failed AVF. 0.37 cm. Mid Basilic vein measures 0.23cm x 0.22 cm. Distal Basilic vein measures 0.15cm x 0.16 cm. VL/Dialysis Vein Map PRE-OP BILAT Interpretation Summary Patent bilateral upper extremity arteries with normal waveforms and measurement s above. Failed left basilic fistula. Otherwise patent with measurements above. Ordering Physician: Sherita Rondon Referring Physician: Jacky Morgan Performed By: Laura Trinidad, MICHAEL, RVT ???
== END | disposition home or self-care (01) ==
LOC: CVS 13:51
PROVIDERS: PCP Internal Medicine; Referring Provider Physician Assistant; Visit Provider Physician Assistant
DX: Z01.818 Encounter for other preprocedural examination (principal); N18.5 Chronic kidney disease, stage 5
CPT/HCPCS: 93985

== ENCOUNTER 2024-04-22 12:05 | Emergency (ER) | payer MEDICARE, OTHER, SELFPAY ==
[2024-04-22 12:06] VITALS: BP 119/52; PULSE 67; RESP 16; TEMP 36.7; O2SAT 100; BMI 20.1
--- NOTE | 2024-04-22 15:26 | EDS_ITS ---
HPI History of Present Illness Chief Complaint: Rash Informant: patient and friend (Caregiver) Narrative Narrative: 83-year-old female with a sore and itchy rash for the past 3 or 4 days according to her and caregiver. No systemic symptoms or other changes. She is a history of bladder cancer that she has been seen for but they are at their limit of treatment possibilities, she has hematuria from that but is still able to urinate does not have a catheter or urinary retention. No other recent illness or fevers coexistent with this. No injuries. She is not have the rash anywhere else except for the left leg. [facility] Medical History Bladder cancer History of echocardiogram Wears glasses Post-menopausal Cancer Anxiety History of steroid therapy Walker as ambulation aid Low iron High cholesterol Injury of head and neck Syncope Falls Non-smoker ESRD on dialysis Heart murmur Mitral regurgitation Hypothyroidism Vertigo Cardiomyopathy Sjogren syndrome with inflammatory arthritis Arthritis Hyperlipidemia Type 2 diabetes mellitus CKD (chronic kidney disease) stage 5, GFR less than 15 ml/min Bilateral lower extremity edema Macular degeneration Lumbar spinal stenosis Glaucoma Heart failure Osteoporosis Thyroid disease Gastric reflux Hypertension Hx of fracture of wrist Rheumatoid arthritis Kidney failure Cancer Anemia Home Medications ?Medication ?Instructions ?Recorded ?Last Taken ?Type latanoprost 0.005 % eye drops 1 drp EACH EYE QPM glaucoma 09/06/23 Unknown History clonidine HCl 0.1 mg tablet 0.1 mg PO Q6H PRN hypertensive 11/07/23 Unknown History emergency atorvastatin 10 mg tablet 10 mg PO DAILY #90 tabs 02/11/24 Unknown Rx carvedilol 25 mg tablet 50 mg (2 x 25 mg) PO BID #180 tabs 02/11/24 Unknown Rx cholecalciferol (vitamin D3) 62.5 See Rx Instructions PO .COMPLEX 02/11/24 Unknown Rx mcg (2,500 unit) capsule #90 caps handicap placard #1 ea 02/11/24 Unknown Rx hydralazine 100 mg tablet 100 mg PO Q8H hypertension #270 02/11/24 Unknown Rx tabs levothyroxine 25 mcg tablet 25 mcg PO DAILY thryoid #90 tabs 02/11/24 Unknown Rx lisinopril 20 mg tablet 20 mg PO BID hypertension #180 tabs 02/11/24 Unknown Rx mirtazapine 7.5 mg tablet 7.5 mg PO QHS #90 tabs 02/11/24 Unknown Rx nifedipine 60 mg tablet,extended 60 mg PO BID BLOOD PRESSURE #180 02/11/24 Unknown Rx release tabs pantoprazole 40 mg tablet,delayed 40 mg PO BID #180 tabs 02/11/24 Unknown Rx release clonidine 0.1 mg/24 hr weekly 1 patch transdermal ROLON #12 ea 03/08/24 Unknown Rx transdermal patch hydrocodone-acetaminophen 5-325mg 1 tab PO Q6H PRN PRN Pain 3 days 04/22/24 Unknown Rx 5mg-325mg #12 TABLETS valacyclovir 500 mg tablet 500 mg PO DAILY #7 tabs 04/22/24 Unknown Rx Allergy/AdvReac Type Severity Reaction Status Date / Time adalimumab (From Humira) Allergy Hives Verified 04/22/24 12:06 Family History Mother Heart disease Hypertension Osteoporosis Father CVA (cerebral vascular accident) Hypertension Surgical History History of surgery Hx of esophagogastroduodenoscopy H/O transurethral resection of bladder tumor (TURBT) Hx of colonoscopy S/P total knee arthroplasty S/P vein stripping S/P partial hysterectomy History of bladder surgery History of nephrectomy Social History household members: family Smoking Status: Never smoker alcohol intake: never substance use type: does not use ROS ROS ED Constitutional Constitutional ED: Denies chills or fever(s) Genitourinary Genitourinary ED: Reports hematuria; Denies dysuria Integumentary Reports rash EXAM Physical Exam Const Vital Signs: 04/22/24 12:06 Temperature 98.1 F Temperature Source Oral Pulse Rate 67 Respiratory Rate 16 Blood Pressure 119/52 L Blood Pressure Mean 74 Pulse Ox 100 Oxygen Delivery Method Room Air Positive well nourished and well developed General Appearance ED: well developed and NAD Eyes PERRL and EOMs intact bilaterally Neck full ROM and supple Resp normal respiratory effort Extremity Extremity Narrative: See below for tender rash on the left lower leg. All compartments are soft and nondistended, patient can move all joints without difficulty. General Extremety ED: Negative for edema or pulses abnormal General Extremity: Negative for edema or pulses abnormal Neuro oriented x3, CN's II-XII intact bilaterally and no sensory deficits noted Sensorium / Orientation: awake and alert Motor Exam: strength 5/5 throughout Psych mental status grossly normal Skin no wounds Skin Narrative: There is a tender patchy rash of blisters in the left lateral leg progresses over to the dorsum of the foot and the great toe a little bit on the second toe. Mostly dorsal a little bit at the plantar aspect of the great toe as well. Goes up to the knee but not proximally. It is lateral and anterior. Some of the blisters are leaking clear fluid, maybe 2 of them. MDM MDM MDM Narrative Medical decision making narrative: This is consistent with shingles in the left lower extremity L5 dermatome, there is a little involvement of L4 which is not uncommon to have some overlap. Patient thinks she had chickenpox long ago. She has never had shingles before. She does not look toxic or have any systemic symptoms with this. Her cancer may have triggered this. She is outside of the window to use recommended medications, and since she is a diabetic I think she may have more harm than good by putting her on steroids at this time given that it has been present for more than 72 hours, but since the risk is extremely low with valacyclovir and going to prescribe her that as well as something for pain. Caregiver comfortable with that plan. I am sending confirmatory PCR from the liquid from one of the lesions. Will not come back today. Discharge Plan Triage Chief Complaint: Rash ED Provider: Holland Flores Dx/Rx/DC Orders Clinical Impression: Herpes zoster involving lumbar dermatome Instructions: ED Shingles (Herpes Zoster) Prescriptions: New valacyclovir 500 mg tablet 500 mg PO DAILY Qty: 7 0RF Rx Instructions: on dialysis days, take after dialysis hydrocodone-acetaminophen 5-325 mg tablet 1 tab PO Q6H PRN PRN (Reason: Pain) 3 Days Qty: 12 0RF No Action clonidine HCl 0.1 mg tablet 0.1 mg PO Q6H PRN (Reason: hypertensive emergency) Patient Comments: for SBP >180 (DME) handicap placard See Rx Instructions .Route .MEDSUPPLY Qty: 1 0RF Rx Instructions: Dispense one placard (one year) atorvastatin 10 mg tablet 10 mg PO DAILY Qty: 90 1RF carvedilol 25 mg tablet 50 mg PO BID Qty: 180 1RF hydralazine 100 mg tablet 100 mg PO Q8H Qty: 270 1RF levothyroxine 25 mcg tablet 25 mcg PO DAILY Qty: 90 1RF lisinopril 20 mg tablet 20 mg PO BID Qty: 180 1RF mirtazapine 7.5 mg tablet 7.5 mg PO QHS Qty: 90 1RF nifedipine 60 mg tablet extended release 60 mg PO BID Qty: 180 1RF pantoprazole 40 mg tablet,delayed release (DR/EC) 40 mg PO BID Qty: 180 1RF cholecalciferol (vitamin D3) 62.5 mcg (2,500 unit) capsule See Rx Instructions PO .COMPLEX Qty: 90 1RF Rx Instructions: 1 capsule orally; latanoprost 0.005 % drops 1 drp EACH EYE QPM clonidine 0.1 mg/24 hr patch weekly 1 patch transdermal ROLON Qty: 12 1RF Primary Care Provider: Jacky Morgan Referrals: Jacky Morgan MD [Primary Care Provider] - 1-2 Weeks Print Language: [place] Disposition Disposition: Home, Self Care
[2024-04-22] MEDS: HYDROcodone Bitartrate/Apap 5/325 Tablet PO (15:29)
[2024-04-22 16:06] VITALS: BP 110/70; PULSE 70; RESP 16; O2SAT 98
== END 2024-04-22 16:34 | disposition home or self-care (01) ==
PROVIDERS: Emergency Provider Emergency Medicine; PCP Internal Medicine; Visit Provider Emergency Medicine
DX: B02.8 Zoster with other complications (principal); I13.2 Hypertensive heart and chronic kidney disease with heart failure and with stage 5 chronic kidney disease, or end stage renal disease; N18.5 Chronic kidney disease, stage 5; I50.9 Heart failure, unspecified; E11.22 Type 2 diabetes mellitus with diabetic chronic kidney disease; E78.00 Pure hypercholesterolemia, unspecified; Z85.51 Personal history of malignant neoplasm of bladder; E03.9 Hypothyroidism, unspecified; Z79.899 Other long term (current) drug therapy; Z79.890 Hormone replacement therapy; K21.9 Gastro-esophageal reflux disease without esophagitis; Z90.710 Acquired absence of both cervix and uterus; Z90.5 Acquired absence of kidney; Q82.8 Other specified congenital malformations of skin; R21 Rash and other nonspecific skin eruption
CPT/HCPCS: 87798; 99282

== ENCOUNTER 2024-05-14 20:23 | Inpatient (IN) | payer MEDICARE, OTHER, SELFPAY ==
[2024-05-14 20:24] VITALS: PULSE 109; RESP 27; TEMP 36.6; O2SAT 100; BMI 20.1
--- NOTE | 2024-05-14 20:42 | RAD_ITS ---
EXAM: XR CHEST, 2 VIEWS CLINICAL INDICATION: sob TECHNIQUE: Frontal and lateral views of the chest. COMPARISON: 10/03/2023 FINDINGS: LUNGS AND PLEURAL SPACES: There is fullness in the vidal bilaterally. There is a small left-sided pleural effusion. No pneumothorax. HEART: Unremarkable. Cardiac silhouette not enlarged. MEDIASTINUM: Central airways and mediastinal contour are unremarkable. BONES/JOINTS: Unremarkable. No acute fracture. SOFT TISSUES: Unremarkable. TUBES, LINES AND DEVICES: There is a right central venous catheter with the distal tip at the junction superior vena cava and right atrium. RAD/Chest PA and Lateral IMPRESSION: Vascular congestion with a left-sided effusion. Right central venous catheter in good position. Electronically Signed: All Ames MD at 21:16 EST ,
[2024-05-14 21:00] LABS: Absolute Lymphocyte Count 1.16 X10^3/uL (0.83-4.51); Basophil# 0.02 X10^3/uL; Basophil% 0.4 % (0-1); Eosinophil# 0.19 X10^3/uL; Hematocrit 23.7 % (37-47); Hemoglobin 7.4 g/dL (12.0-15.0); Lymphocyte # 1.16 X10^3/ul (0.83-4.51); Lymphocyte % 24.6 % (19-41); Mean Corp Hgb Conc 31.2 g/dL (32-36); Mean Corpuscular Hgb 30.7 pg (27.0-32.0); Mean Corpuscular Volume 98.3 fL (81-99); Mean Platelet Vol. 11.1 fl (6.2-12.0); Monocyte# 0.29 X10^3/uL; Monocyte% 6.1 % (0-10); NRBC Flagged by Analyzer 0 % (0-5); Neutrophil # 3.01 X10^3/uL (2.7-7.7); Neutrophil % 63.8 % (47-70); Platelet Count 168 K/mm3 (150-450); RBC Distribution Width SD 61.5 fl (35.1-43.9); Red Blood Count 2.41 M/mm3 (4.2-5.4); White Blood Count 4.7 K/mm3 (4.4-11.0)
[2024-05-14 21:01] LABS: Base Excess 7 mmol/L (-2 to +2); Bicarbonate 32.8 mmol/L (22-26); Blood Gas Specimen Type ART; Mode Not entered; O2 Delivery Device Cannula; PO2 109 mmHG (75-100); SITE R Radial; SO2 98 % (95-99); Total Carbon Dioxide 35 mmol/L; pCO2 57.7 mmHg (35-45); pH 7.36 (7.35-7.45)
[2024-05-14 21:17] LABS: Anion Gap 8 (5-15); BUN 21 mg/dL (7-18); BUN/Creat Ratio 8.1 RATIO (10-20); Calcium,Total 9.2 mg/dL (8.5-10.1); Chloride 101 mmol/L (98-107); Creatinine, Serum 2.59 mg/dL (0.55-1.02); EST Glomerular Filtration Rate 19 mL/min (>60); Est Glom Filt Rate - Afr Amer 23 mL/min (>60); Estimated Creatinine Clearance 11.61 ml/min; Glucose 271 mg/dL (74-106); Potassium 4.2 mmol/L (3.5-5.1); Sodium Level 139 mmol/L (136-145); Troponin-I HS 171 pg/mL (3.0-54.0)
[2024-05-14 21:18] LABS: BNP,B-Type NATRIURETIC PEPTIDE 2372.8 pg/mL (0-100)
[2024-05-14 21:29] VITALS: BP 155/108; PULSE 101; RESP 18; TEMP 36.6; O2SAT 100
[2024-05-14 21:31] VITALS: PULSE 102; RESP 28
[2024-05-14] MEDS: Ipratropium/Albuterol Sulfate 3 ML AMPUL.NEB INHALATION ×3 (21:31→21:44)
[2024-05-14 21:50] LABS: International Normalized Ratio 1.2
[2024-05-14 21:51] LABS: Partial Thromboplast Time 27.6 Seconds (24.1-36.2)
[2024-05-14 21:56] LABS: Lactic Acid 2.4 mmol/L (0.4-1.9)
[2024-05-14 22:00] VITALS: BP 171/84; PULSE 103; RESP 18; TEMP 36.6; O2SAT 100
--- NOTE | 2024-05-14 22:05 | CPS ---
[2131] x3 Duoneb given to pt. in ER
--- NOTE | 2024-05-14 22:43 | CT_ITS ---
STUDY: CTA CHEST REASON FOR EXAM: Female, 83 years old. hypoxia, hx of cancer RADIATION DOSAGE (If Supplied By Facility): CTDIvol = ( 31.52 ) mGy, DLP = ( 231.24 ) mGycm TECHNIQUE: The examination was performed with the intravenous administration of IV 100mL Isovue-370. Post-processing of the angiographic images was performed, with multiplanar reformation and 3D reconstruction. The protocol utilizes one or more of the following dose reduction techniques: automated exposure control, adjustment of mA and/or kV according to patient size,and/or use of iterative reconstruction technique. COMPARISON: Prior study dated: 09/06/2023 FINDINGS: LUNGS: Compressive atelectasis bilateral lower lobes. Hazy opacities throughout the lungs with mild septal thickening. PLEURA: Moderate bilateral pleural effusions slightly greater on the right. No pneumothorax. PULMONARY VESSELS: No pulmonary emboli identified. MEDIASTINUM: Unremarkable. HEART: Mildly enlarged. Coronary artery calcifications are noted. Small pericardial effusion. AORTA/GREAT VESSELS: Thoracic aorta is normal caliber. No aneurysm or dissection. UPPER ABDOMEN: No acute findings. BONES/SOFT TISSUES: No acute findings. Old healed left rib fractures. OTHER: A few thyroid nodules, largest in the left lobe is 1.6 cm. Central venous catheter tip in the right atrium obscured by contrast. CT/CTA Chest W/WO Contrast IMPRESSION: 1. No evidence of pulmonary emboli. 2. Findings consistent with pulmonary edema with moderate bilateral pleural effusions and compressive lower lobe atelectasis. 3.Incidental thyroid nodules. Nonemergent thyroid ultrasound recommended. Electronically Signed: Avis De La O MD at 0:29 EST ,
[2024-05-14 23:00] VITALS: BP 182/99; PULSE 99; RESP 18; TEMP 36.6; O2SAT 97
[2024-05-14] MEDS: Bumetanide 1 MG/4 ML Vial IV (23:05)
[2024-05-14] MEDS: Piperacil/Tazobactam 3.375 GM in 0.9% Normal Saline (50mL MB+) 50 ML IV (23:06)
--- NOTE | 2024-05-14 23:23 | EX.ED.DYSGE1 ---
HPI History of Present Illness Chief Complaint: Shortness of Breath Narrative Narrative: Patient is a 83-year-old female with a past medical history of heart failure, end-stage renal disease on dialysis Friday, hypothyroidism, Sjogren syndrome, type 2 diabetes, bladder cancer who presented to the emergency department chief complaint shortness of breath. According to EMS she was 77% on room air. According to the family member at bedside they note that earlier tonight she was just sitting in the recliner eating food she had to go to the bathroom she went to get up and had shortness of breath and almost passed out while she was walking because she was having difficulty breathing. They noted that they attempted to give her Lasix at home however noted that this was from over a year ago and was unsure if this was been helpful or not. They did note that recently she has been increasingly weak as well and not moving around as much as she normally does. Before she had been able to get up and ambulate around and cook with help. [facility] Medical History Bladder cancer History of echocardiogram Wears glasses Post-menopausal Cancer Anxiety History of steroid therapy Walker as ambulation aid Low iron High cholesterol Injury of head and neck Syncope Falls Non-smoker ESRD on dialysis Heart murmur Mitral regurgitation Hypothyroidism Vertigo Cardiomyopathy Sjogren syndrome with inflammatory arthritis Arthritis Hyperlipidemia Type 2 diabetes mellitus CKD (chronic kidney disease) stage 5, GFR less than 15 ml/min Bilateral lower extremity edema Macular degeneration Lumbar spinal stenosis Glaucoma Heart failure Osteoporosis Thyroid disease Gastric reflux Hypertension Hx of fracture of wrist Rheumatoid arthritis Kidney failure Cancer Anemia Home Medications ?Medication ?Instructions ?Recorded ?Last Taken ?Type latanoprost 0.005 % eye drops 1 drp EACH EYE QPM glaucoma 09/06/23 Unknown History clonidine HCl 0.1 mg tablet 0.1 mg PO Q6H PRN hypertensive 11/07/23 Unknown History emergency atorvastatin 10 mg tablet 10 mg PO DAILY #90 tabs 02/11/24 Unknown Rx carvedilol 25 mg tablet 50 mg (2 x 25 mg) PO BID #180 tabs 02/11/24 Unknown Rx cholecalciferol (vitamin D3) 62.5 See Rx Instructions PO .COMPLEX 02/11/24 Unknown Rx mcg (2,500 unit) capsule #90 caps handicap placard #1 ea 02/11/24 Unknown Rx hydralazine 100 mg tablet 100 mg PO Q8H hypertension #270 02/11/24 Unknown Rx tabs levothyroxine 25 mcg tablet 25 mcg PO DAILY thryoid #90 tabs 02/11/24 Unknown Rx lisinopril 20 mg tablet 20 mg PO BID hypertension #180 tabs 02/11/24 Unknown Rx mirtazapine 7.5 mg tablet 7.5 mg PO QHS #90 tabs 02/11/24 Unknown Rx nifedipine 60 mg tablet,extended 60 mg PO BID BLOOD PRESSURE #180 02/11/24 Unknown Rx release tabs pantoprazole 40 mg tablet,delayed 40 mg PO BID #180 tabs 02/11/24 Unknown Rx release clonidine 0.1 mg/24 hr weekly 1 patch transdermal ROLON #12 ea 03/08/24 Unknown Rx transdermal patch prednisone 20 mg tablet 40 mg (2 x 20 mg) PO DAILY 5 days 04/22/24 Unknown Rx #10 tabs valacyclovir 500 mg tablet 500 mg PO DAILY #7 tabs 04/22/24 Unknown Rx Allergy/AdvReac Type Severity Reaction Status Date / Time adalimumab (From Humira) Allergy Hives Verified 05/14/24 20:29 Family History Mother Heart disease Hypertension Osteoporosis Father CVA (cerebral vascular accident) Hypertension Surgical History History of surgery Hx of esophagogastroduodenoscopy H/O transurethral resection of bladder tumor (TURBT) Hx of colonoscopy S/P total knee arthroplasty S/P vein stripping S/P partial hysterectomy History of bladder surgery History of nephrectomy Social History household members: family Smoking Status: Never smoker alcohol intake: never substance use type: does not use ROS ROS ED ROS Narrative Constitutional: Denies any fevers, chills, headaches, lightness, dizziness Eyes: Denies change in vision double vision blurry vision Cardiovascular: Denies chest pain or palpitations Respiratory: Complains of shortness of breath and cough Abdomen: Denies abdominal pain nausea vomit diarrhea : Denies any urinary symptoms Neurological: Complains of generalized weakness, denies numbness, tingling Musculoskeletal: Denies back pain Skin: Denies rashes or lesions EXAM Physical Exam Narrative Exam Narrative: General: Patient was lying in bed did not appear to have increased work of breathing Head: Atraumatic, normocephalic Eyes: PERRL bilaterally, EOMI bilaterally, no conjunctival injection noted Neck: Soft, supple, trachea midline Cardiovascular: Patient tachycardic with a regular rhythm no murmurs gallops rubs noted Respiratory: Patient did end expiratory wheezing noted with some crackles as well at the bases Abdomen: Soft, nondistended, no tenderness to palpation Extremities: +4/5 strength noted in the bilateral extremities, radial pulses +2/4 in the bilateral extremities, no pedal edema no exam Neurological: Patient knew that she was at the hospital she is able to tell me her name moving all extremities overall weak Skin: Warm, dry, intact no rashes or lesions noted Const Vital Signs: 05/14/24 20:24 05/14/24 20:40 05/14/24 21:16 Temperature 98 F Temperature Source Oral Pulse Rate 109 H Respiratory Rate 27 H Respiratory Effort Respiratory Depth Respiratory Pattern Blood Pressure Blood Pressure Mean Pulse Ox 100 Oxygen Delivery Method Nasal Cannula Room Air Room Air Oxygen Flow Rate (L/min) 4 05/14/24 21:29 05/14/24 21:31 05/14/24 22:00 Temperature 98 F 98 F Temperature Source Oral Oral Pulse Rate 101 H 102 H 103 H Respiratory Rate 18 28 H 18 Respiratory Effort Respiratory Depth Respiratory Pattern Tachypnea Blood Pressure 155/108 H 171/84 H Blood Pressure Mean 123 113 Pulse Ox 100 100 Oxygen Delivery Method Room Air Room Air Oxygen Flow Rate (L/min) 05/14/24 23:00 05/14/24 23:16 05/15/24 00:00 Temperature 97.9 F 98 F Temperature Source Oral Oral Pulse Rate 99 98 Respiratory Rate 18 16 Respiratory Effort Short of Breath Respiratory Depth Normal Respiratory Pattern Tachypnea Blood Pressure 182/99 H 178/96 H Blood Pressure Mean 126 123 Pulse Ox 97 97 Oxygen Delivery Method Room Air Room Air Room Air Oxygen Flow Rate (L/min) 05/15/24 00:56 Temperature Temperature Source Pulse Rate 103 H Respiratory Rate 17 Respiratory Effort Respiratory Depth Respiratory Pattern Blood Pressure 201/94 H Blood Pressure Mean 129 Pulse Ox 97 Oxygen Delivery Method Room Air Oxygen Flow Rate (L/min) MDM MDM MDM Narrative Medical decision making narrative: Patient is a 83-year-old female who presents to the emergency department the chief complaint of hypoxia chronically she is not on oxygen at home. On the differential diagnose includes but limited to pneumothorax, pneumonia, CHF exacerbation, ACS, PE. Once workup is obtained reviewed she will be reevaluated. Patient will not be given a 30 cc/kg bolus of IV fluid secondary concern for a hypervolemic state we will give a 250 cc bolus of fluids. Patient's EKG reviewed and independently interpreted myself showed sinus tachycardia with a rate of 108 bpm with frequent premature ventricular complexes noted. Patient CBC reviewed showed no evidence leukocytosis white blood count normal at 4.7, hemoglobin 7.4, platelet count was noted be 168. Patient's INR normal at 1.2, her arterial blood gas was obtained and reviewed by myself which showed 7.36 pH and a CO2 of 57. Patient sodium normal 139, potassium of 4.2, creatinine was elevated 2.59 however this is around her baseline as she is on dialysis Friday had dialysis today. Patient's lactic acid was elevated 2.4, troponin was noted to be 171 with a delta troponin pending currently. Patient's chest x-ray was reviewed as well which showed vascular congestion with a left-sided pleural effusion. Right central venous catheter in good position. Her elevated troponin is likely secondary to CHF exacerbation with her vascular congestion and pleural effusion noted on the chest x-ray. However given her lactic acidosis and frequent hospital settings from her dialysis will give her vancomycin and Zosyn which was ordered at 2201. Patient was given 3 DuoNebs as well. Patient be given a milligram of Bumex. We do not currently have dialysis available on the weekend therefore we will discuss with [facility] for transfer. Discussed case with hospitalist Dr. Casey who accept patient for admission however there would be no beds available tonight and the patient will likely not have a bed in the morning will not be until potentially in the afternoon. Do feel that the patient can be admitted here for diuresis that she does still make urine and if she is improving likely can stay here however she is not she will likely need transferred for her dialysis in the setting of a CHF/volume overload state. Did had a CTA of the chest to rule out pulmonary embolism as she does have a history of bladder cancer. Patient's a CTA of her chest was reviewed and showed no evidence of pulmonary emboli there was findings consistent pulmonary edema with moderate bilateral pleural effusions and compressive lower lobe atelectasis. Incidental thyroid nodule noted nonemergent thyroid ultrasound recommended. Patient's delta troponin was obtained and reviewed as well which was noted to be 418. Once again I do believe that this is likely secondary to her hypervolemic state. Will discuss case with hospitalist Dr. Whittington for admission as the patient was accepted [facility] however they will not have a bed tonight and will not have a bed tomorrow morning at the earliest would be tomorrow afternoon potentially. Discussed case with hospitalist Dr. Whittington who accept the patient for admission. Patient's blood pressure was increasing while in the emergency department therefore we will give the patient labetalol. Given the patient's trending troponins will give the patient 325 aspirin as well as a dose of Lovenox. Patient was notified is agreeable plan all question concerns answered. Lab Data Labs: Laboratory Results - last 24 hr 05/14/24 05/14/24 05/14/24 20:45 21:26 21:35 WBC 4.7 RBC 2.41 L Hgb 7.4 L Hct 23.7 L MCV 98.3 MCH 30.7 MCHC 31.2 L RDW Std Deviation 61.5 H RDW Coeff of Wiliam 17.0 H Plt Count 168 MPV 11.1 Immature Gran % (Auto) 1.100 H Neut % (Auto) 63.8 Lymph % (Auto) 24.6 Harlan % (Auto) 6.1 Eos % (Auto) 4.0 Baso % (Auto) 0.4 Absolute Neuts (auto) 3.0 Absolute Lymphs (auto) 1.16 Nucleated RBC % 0 PT 15.0 H INR 1.2 APTT 27.6 Sodium 139 Potassium 4.2 Chloride 101 Carbon Dioxide 30.0 Anion Gap 8 BUN 21 H Creatinine 2.59 H Estim Creat Clear Calc 11.61 Est GFR (MDRD) Af Amer 23 L Est GFR (MDRD) Non-Af 19 L BUN/Creatinine Ratio 8.1 L Glucose 271 H Lactic Acid 2.4 H* Calcium 9.2 Troponin I High Sens 171 H* B-Natriuretic Peptide 2372.8 H Urine Color Cancelled Urine Clarity Cancelled Urine pH Cancelled Ur Specific [place] Cancelled U Specif Grav (Refrac) Cancelled Urine Protein Cancelled Urine Glucose (UA) Cancelled Urine Ketones Cancelled Urine Occult Blood Cancelled Urine Nitrite Cancelled Urine Bilirubin Cancelled Urine Urobilinogen Cancelled Ur Leukocyte Esterase Cancelled Urine RBC Cancelled Urine WBC Cancelled Ur Squamous Epith Cells Cancelled Ur Transition Epith Cell Cancelled Ur Renal Epithelial Cell Cancelled Calcium Oxalate Crystal Cancelled Uric Acid Crystals Cancelled Triple Phos Crystals Cancelled Other Crystals Cancelled Amorphous Sediment Cancelled Urine Bacteria Cancelled Hyaline Casts Cancelled Fine Granular Casts Cancelled Coarse Granular Casts Cancelled Waxy Casts Cancelled RBC Casts Cancelled WBC Casts Cancelled Urine Mucus Cancelled Urine Trichomonas Cancelled Urine Yeast Cancelled 05/14/24 23:11 WBC RBC Hgb Hct MCV MCH MCHC RDW Std Deviation RDW Coeff of Wiliam Plt Count MPV Immature Gran % (Auto) Neut % (Auto) Lymph % (Auto) [place] % (Auto) Eos % (Auto) Baso % (Auto) Absolute Neuts (auto) Absolute Lymphs (auto) Nucleated RBC % PT INR APTT Sodium Potassium Chloride Carbon Dioxide Anion Gap BUN Creatinine Estim Creat Clear Calc Est GFR (MDRD) Af Amer Est GFR (MDRD) Non-Af BUN/Creatinine Ratio Glucose Lactic Acid Calcium Troponin I High Sens 418 H* B-Natriuretic Peptide Urine Color Urine Clarity Urine pH Ur Specific [place] U Specif Grav (Refrac) Urine Protein Urine Glucose (UA) Urine Ketones Urine Occult Blood Urine Nitrite Urine Bilirubin Urine Urobilinogen Ur Leukocyte Esterase Urine RBC Urine WBC Ur Squamous Epith Cells Ur Transition Epith Cell Ur Renal Epithelial Cell Calcium Oxalate Crystal Uric Acid Crystals Triple Phos Crystals Other Crystals Amorphous Sediment Urine Bacteria Hyaline Casts Fine Granular Casts Coarse Granular Casts Waxy Casts RBC Casts WBC Casts Urine Mucus Urine Trichomonas Urine Yeast ABG Data ABG results: ABG 05/14/24 20:56 Specimen Type ART Sample Site R Radial pH 7.36 Bicarbonate Actual 32.8 H Total CO2 35 Base Excess 7 H O2 Saturation 98 O2 % 2.0 ABG pCO2 57.7 H ABG pO2 109 H O2 Delivery Device Cannula Vent Mode Not entered Radiography Diagnostic Testing: Clinical Impression(s) from Imaging Studies Chest X-Ray 05/14/24 20:42 IMPRESSION: Vascular congestion with a left-sided effusion. Right central venous catheter in good position. Electronically Signed: All D. Breckwoldt, MD at 21:16 EST , Chest CTA 05/14/24 22:43 IMPRESSION: 1. No evidence of pulmonary emboli. 2. Findings consistent with pulmonary edema with moderate bilateral pleural effusions and compressive lower lobe atelectasis. 3.Incidental thyroid nodules. Nonemergent thyroid ultrasound recommended. Electronically Signed: Avis De La O MD at 0:29 EST , Discharge Plan Triage Chief Complaint: Shortness of Breath ED Provider: Christopher Bills Dx/Rx/DC Orders Clinical Impression: Acute hypoxic respiratory failure, CKD (chronic kidney disease) stage 5, GFR less than 15 ml/min, Bilateral pleural effusion, Type 2 myocardial infarction Prescriptions: No Action clonidine HCl 0.1 mg tablet 0.1 mg PO Q6H PRN (Reason: hypertensive emergency) Patient Comments: for SBP >180 (DME) handicap placard See Rx Instructions .Route .MEDSUPPLY Qty: 1 0RF Rx Instructions: Dispense one placard (one year) atorvastatin 10 mg tablet 10 mg PO DAILY Qty: 90 1RF carvedilol 25 mg tablet 50 mg PO BID Qty: 180 1RF hydralazine 100 mg tablet 100 mg PO Q8H Qty: 270 1RF levothyroxine 25 mcg tablet 25 mcg PO DAILY Qty: 90 1RF lisinopril 20 mg tablet 20 mg PO BID Qty: 180 1RF mirtazapine 7.5 mg tablet 7.5 mg PO QHS Qty: 90 1RF nifedipine 60 mg tablet extended release 60 mg PO BID Qty: 180 1RF pantoprazole 40 mg tablet,delayed release (DR/EC) 40 mg PO BID Qty: 180 1RF cholecalciferol (vitamin D3) 62.5 mcg (2,500 unit) capsule See Rx Instructions PO .COMPLEX Qty: 90 1RF Rx Instructions: 1 capsule orally; latanoprost 0.005 % drops 1 drp EACH EYE QPM valacyclovir 500 mg tablet 500 mg PO DAILY Qty: 7 0RF Rx Instructions: on dialysis days, take after dialysis prednisone 20 mg tablet 40 mg PO DAILY 5 Days Qty: 10 0RF clonidine 0.1 mg/24 hr patch weekly 1 patch transdermal ROLON Qty: 12 1RF Primary Care Provider: Jacky Morgan Referrals: Jacky Morgan MD [Primary Care Provider] - Print Language: Macedonian Disposition Disposition: Acute Care Hospital [facility]
[2024-05-15] VITALS (25 sets, daily range): BP systolic 135–229; BP diastolic 40–126; PULSE 62–104; RESP 15–24; TEMP 36.4–36.9; O2SAT 90–100; BMI 22.0
[2024-05-15 00:13] LABS: Troponin-I HS 418 pg/mL (3.0-54.0)
--- NOTE | 2024-05-15 00:14 | HP.PCM.HOS_ITS ---
[facility] - General General Date of Admission: 05/15/24 Date of Service: 05/15/24 Chief Complaint: SOB and Cough. HPI Narrative MONA ESTRELLA, is a 83 F with a past medical history of essential hypertension; on lisinopril, nifedipine, hydralazine, carvedilol and clonidine patch, hyperlipidemia; on atorvastatin, hypothyroidism; on levothyroxine, history of metastatic renal cell carcinoma; status post Right nephrectomy with local recurrence in the bladder x 2; status post TURBT, history of neuro paraneoplastic syndrome; previously treated with steroids followed by [facility] [place], ESRD; on HD (-W-) but with the patient thankfully still able to make urine, chronic anemia; with history of low iron, chronic thrombocytopenia, history of chronic diastolic CHF; with LVEF ~65% (06/2023), history of cardiomyopathy, history of syncope, history of Sjogren's syndrome, history of vertigo, history of chronic bilateral lower extremity edema, history of glaucoma; on latanoprost eyedrops, history of macular degeneration, history of shingles; on valacyclovir, GERD; on pantoprazole twice daily, RA, OA; with history of bilateral TKR's and lumbar spinal stenosis and history of admission here from September 04, 2023 to September 10, 2023 for treatment of hypertensive crisis and hyperkalemia with hypertensive encephalopathy after having only underwent ~2.5 hours of HD which was truncated due to abdominal pain who presents to [facility] ER complaining of shortness of breath and cough. Ms. Estrella reports her symptoms began yesterday after she underwent hemodialysis as scheduled but later in the evening her [id number] noted she was sitting in recliner eating food when she had to get up to go to the bathroom and became severely shortness of breath and almost passed out while she was walking. The family then attempted to give her Lasix but the medications they had on hand over 1 year ago and they were not sure if will be helpful or not so they activated EMS. Her family also reported that she has been increasingly weak and not moving around as much as she normally does. EMS report shows oxygen saturation of 77% on RA with supplemental oxygen then applied. There was no report of fever, chills, nausea, vomiting, diarrhea, constipation, chest pain, headache, other focal neurologic deficits or excessive or recent significant increase in her normal fluid intake. In the ER she was noted to have a CXR positive for vascular congestion with a Left-sided effusion and a Right CVC in good position with CTA of the chest revealing no evidence of pulmonary emboli with findings consistent with pulmonary edema and moderate bilateral pleural effusions and compressive lower lobe atelectasis with incidentally noted thyroid nodules and nonemergent thyroid ultrasound recommended along with a a corresponding elevated BNP of 2,372.8 pg/mL present on admission consistent with suspected AE of chronic diastolic CHF; with preserved LVEF complicated by an elevated initial troponin of 171 pg/mL present on admission that trended upward to 418 pg/mL on follow up due to suspected Acute Cardiac Strain compounded by clinical evidence of Acute Respiratory Insufficiency and laboratory evidence of Lactic Acidosis of 2.4 mmol/L present on admission with patient arranged for eventual transfer to [facility]. However, since [place] did not have a bed immediately available the hospitalist service was contacted as per hospital policy to care for this patient until she can be safely transferred. She was then admitted to the PCU for ongoing care for stay that is expected to extend beyond 2 midnights. [facility] Medical History (Updated 05/15/24 @ 05:[address] Philippe Grant, DO) ESRD on dialysis Bladder cancer History of echocardiogram Wears glasses Post-menopausal Cancer Anxiety History of steroid therapy Walker as ambulation aid Low iron High cholesterol Injury of head and neck Syncope Falls Non-smoker Heart murmur Mitral regurgitation Hypothyroidism Vertigo Cardiomyopathy Sjogren syndrome with inflammatory arthritis Arthritis Hyperlipidemia Type 2 diabetes mellitus CKD (chronic kidney disease) stage 5, GFR less than 15 ml/min Bilateral lower extremity edema Macular degeneration Lumbar spinal stenosis Glaucoma Heart failure Osteoporosis Thyroid disease Gastric reflux Hypertension Hx of fracture of wrist Rheumatoid arthritis Kidney failure Cancer Anemia Home Medications ?Medication ?Instructions ?Recorded ?Last Taken ?Type latanoprost 0.005 % eye drops 1 drp EACH EYE QPM glaucoma 09/06/23 Unknown History clonidine HCl 0.1 mg tablet 0.1 mg PO Q6H PRN hypertensive 11/07/23 Unknown History emergency atorvastatin 10 mg tablet 10 mg PO DAILY #90 tabs 02/11/24 Unknown Rx carvedilol 25 mg tablet 50 mg (2 x 25 mg) PO BID #180 tabs 02/11/24 Unknown Rx cholecalciferol (vitamin D3) 62.5 See Rx Instructions PO .COMPLEX 02/11/24 Unknown Rx mcg (2,500 unit) capsule #90 caps handicap placard #1 ea 02/11/24 Unknown Rx hydralazine 100 mg tablet 100 mg PO Q8H hypertension #270 02/11/24 Unknown Rx tabs levothyroxine 25 mcg tablet 25 mcg PO DAILY thryoid #90 tabs 02/11/24 Unknown Rx lisinopril 20 mg tablet 20 mg PO BID hypertension #180 tabs 02/11/24 Unknown Rx mirtazapine 7.5 mg tablet 7.5 mg PO QHS #90 tabs 02/11/24 Unknown Rx nifedipine 60 mg tablet,extended 60 mg PO BID BLOOD PRESSURE #180 02/11/24 Unknown Rx release tabs pantoprazole 40 mg tablet,delayed 40 mg PO BID #180 tabs 02/11/24 Unknown Rx release clonidine 0.1 mg/24 hr weekly 1 patch transdermal ROLON #12 ea 03/08/24 Unknown Rx transdermal patch cholecalciferol (vitamin D3) 125 62.5 mcg PO DAILY 05/15/24 Unknown History mcg (5,000 unit) tablet gabapentin 100 mg capsule 100 mg PO TID 05/15/24 Unknown History hydralazine 50 mg tablet 50 mg PO 4X/DAY 05/15/24 Unknown History ondansetron 8 mg disintegrating 8 mg PO BID 05/15/24 Unknown History tablet Allergy/AdvReac Type Severity Reaction Status Date / Time adalimumab (From Humira) Allergy Hives Verified 05/14/24 20:29 Family History Mother Heart disease Hypertension Osteoporosis Father CVA (cerebral vascular accident) Hypertension Surgical History History of surgery Hx of esophagogastroduodenoscopy H/O transurethral resection of bladder tumor (TURBT) Hx of colonoscopy S/P total knee arthroplasty S/P vein stripping S/P partial hysterectomy History of bladder surgery History of nephrectomy Social History household members: family Smoking Status: Never smoker alcohol intake: never substance use type: does not use ROS ROS Narrative Review of Systems: Constitutional: Patient admits to severe fatigue and generalized weakness but she denies fever or chills. Eyes: Patient denies changes in vision or discharge from eyes. ENT: Patient denies runny nose, sore throat or ear pain. Resp: Patient admits to shortness of breath and nonproductive cough. CV: Patient denies chest pain, palpitations or heart racing. GI: Patient denies abdominal pain, nausea, vomiting, diarrhea or constipation. : Patient denies dysuria or hematuria. MSK: Patient admits to pain in her feet previously attributed to neuropathy. Skin: Patient denies rash, abscess or jaundice. Psych: Patient denies symptoms of uncontrolled depression or anxiety. Neuro: Patient denies headache, paresthesias or focal neurologic deficits. Allergy: Patient denies lip swelling, tongue swelling or urticaria. Hematology: Patient denies easy bleeding or easy bruisability. Endocrinology: Patient denies polyuria, polydipsia or polyphagia. 14 point review of systems otherwise negative except for positives noted above in HPI. Vital Signs Vital Signs Vital Signs: 05/14/24 20:24 05/14/24 20:40 05/14/24 21:16 Temperature 98 F Temperature Source Oral Pulse Rate 109 H Respiratory Rate 27 H Respiratory Effort Respiratory Depth Respiratory Pattern Blood Pressure Blood Pressure Mean Pulse Ox 100 Oxygen Delivery Method Nasal Cannula Room Air Room Air Oxygen Flow Rate (L/min) 4 05/14/24 21:29 05/14/24 21:31 05/14/24 22:00 Temperature 98 F 98 F Temperature Source Oral Oral Pulse Rate 101 H 102 H 103 H Respiratory Rate 18 28 H 18 Respiratory Effort Respiratory Depth Respiratory Pattern Tachypnea Blood Pressure 155/108 H 171/84 H Blood Pressure Mean 123 113 Pulse Ox 100 100 Oxygen Delivery Method Room Air Room Air Oxygen Flow Rate (L/min) 05/14/24 23:00 05/14/24 23:16 05/15/24 00:00 Temperature 97.9 F 98 F Temperature Source Oral Oral Pulse Rate 99 98 Respiratory Rate 18 16 Respiratory Effort Short of Breath Respiratory Depth Normal Respiratory Pattern Tachypnea Blood Pressure 182/99 H 178/96 H Blood Pressure Mean 126 123 Pulse Ox 97 97 Oxygen Delivery Method Room Air Room Air Room Air Oxygen Flow Rate (L/min) Weight Weight: 103 lb Body Mass Index (BMI) 20.1 Physical Exam Const alert, oriented x3, no apparent distress and average body habitus Constitutional Narrative: Patient is a chronically ill and very fatigued appearance. General Appearance: cooperative HEENT normocephalic, head/scalp atraumatic, hearing grossly normal bilaterally and moist oral mucous membranes Eyes PERRL and EOMs intact bilaterally Neck no lymphadenopathy and supple Resp Resp Narrative: Patient noted to have bibasilar crackles with expiratory wheezing and diminished breath sounds throughout. Auscultation: crackles and wheezes Cardio regular rate and regular rhythm GI normal to inspection, nondistended, normoactive bowel sounds, soft to palpation, non-tender and non-distended Extremity normal to inspection, full ROM and no clubbing, cyanosis or edema Skin Skin Narrative: Patient has no evidence of rash, abscess or jaundice. Neuro oriented x3, CN's II-XII intact bilaterally, moves all extremities and no focal motor deficits Sensorium / Orientation: awake, alert, oriented to person, oriented to place and oriented to time Speech: speech normal Psych affect normal Results Medical Records Data Attestation: I reviewed the patient's medical records Lab / Micro Data Attestation: I reviewed the patient's lab results. 05/14/24 20:45 05/14/24 20:45 Labs: Laboratory Results - last 24 hr 05/14/24 20:45: WBC 4.7, RBC 2.41 L, Hgb 7.4 L, Hct 23.7 L, MCV 98.3, MCH 30.7, MCHC 31.2 L, RDW Std Deviation 61.5 H, RDW Coeff of Wiliam 17.0 H, Plt Count 168, MPV 11.1, Immature Gran % (Auto) 1.100 H, Neut % (Auto) 63.8, Lymph % (Auto) 24.6, Hendry % (Auto) 6.1, Eos % (Auto) 4.0, Baso % (Auto) 0.4, Absolute Neuts (auto) 3.0, Absolute Lymphs (auto) 1.16, Nucleated RBC % 0, PT 15.0 H, INR 1.2, APTT 27.6, Sodium 139, Potassium 4.2, Chloride 101, Carbon Dioxide 30.0, Anion Gap 8, BUN 21 H, Creatinine 2.59 H, Estim Creat Clear Calc 11.61, Est GFR (MDRD) Af Amer 23 L, Est GFR (MDRD) Non-Af 19 L, BUN/Creatinine Ratio 8.1 L, Glucose 271 H, Calcium 9.2, Troponin I High Sens 171 H*, B-Natriuretic Peptide 2372.8 H 05/14/24 21:26: Lactic Acid 2.4 H* 05/14/24 21:35: Urine Color Cancelled, Urine Clarity Cancelled, Urine pH Cancelled, Ur Specific [place] Cancelled, U Specif Grav (Refrac) Cancelled, Urine Protein Cancelled, Urine Glucose (UA) Cancelled, Urine Ketones Cancelled, Urine Occult Blood Cancelled, Urine Nitrite Cancelled, Urine Bilirubin Cancelled, Urine Urobilinogen Cancelled, Ur Leukocyte Esterase Cancelled, Urine RBC Cancelled, Urine WBC Cancelled, Ur Squamous Epith Cells Cancelled, Ur Transition Epith Cell Cancelled, Ur Renal Epithelial Cell Cancelled, Calcium Oxalate Crystal Cancelled, Uric Acid Crystals Cancelled, Triple Phos Crystals Cancelled, Other Crystals Cancelled, Amorphous Sediment Cancelled, Urine Bacteria Cancelled, Hyaline Casts Cancelled, Fine Granular Casts Cancelled, Coarse Granular Casts Cancelled, Waxy Casts Cancelled, RBC Casts Cancelled, WBC Casts Cancelled, Urine Mucus Cancelled, Urine Trichomonas Cancelled, Urine Yeast Cancelled 05/14/24 23:11: Troponin I High Sens 418 H* Micro: Microbiology 05/14/24 20:45 Mucosa - Nose SARS-CoV-2, Influenza & RSV (PCR) - Final ABG Data ABG results: ABG 05/14/24 20:56 Specimen Type ART Sample Site R Radial pH 7.36 Bicarbonate Actual 32.8 H Total CO2 35 Base Excess 7 H O2 Saturation 98 O2 % 2.0 ABG pCO2 57.7 H ABG pO2 109 H O2 Delivery Device Cannula Vent Mode Not entered Imaging Radiology Impression Chest X-Ray 05/14/24 20:42 IMPRESSION: Vascular congestion with a left-sided effusion. Right central venous catheter in good position. Electronically Signed: All Ames MD at 21:16 EST , Assessment & Plan Assessment/Plan (1) Acute on chronic diastolic CHF (congestive heart failure): (2) Pleural effusion: (3) Elevated troponin: (4) Respiratory insufficiency: (5) Lactic acidosis: (6) ESRD on dialysis: (7) Anemia: QUALIFIERS: Anemia type: unspecified type Qualified Code(s): D 64.9 - Anemia, unspecified (8) Thyroid nodule: PLAN: Plan 1. AE of chronic diastolic CHF; with preserved LVEF evidenced by radiographic evidence of volume overload with pulmonary vascular congestion and moderate bilateral pleural effusions with corresponding confirmatory elevated BNP of 2,372.8 pg/mL present on admission in the setting of previously known cardiomyopathy - Admit to PCU until a bed becomes available at [place]. Continue IV Bumex BID to promote diuresis and hopefully avoid thoracentesis plus recheck CXR and BNP in a.m. Patient was rechecked a few hours after admission with marked improvement in shortness of breath but with persistent complaints of fatigue. 2. Acute Cardiac Strain; evidenced by elevated initial troponin of 171 pg/mL present on admission followed by a second upwardly trending 418 pg/mL likely arising from #1 - Serialize troponin. Give SL NTG as needed should angina develop. Start aspirin and continue statin and renally-dosed Lovenox with upward trend noted. Check new echocardiogram to reevaluate LVEF. Patient denies chest pain, chest pressure or palpitations at this time but if she develops chest pain or other significant cardiac symptoms cardiology consultation may be necessary. 3. Acute Respiratory Insufficiency due to #1 & #2 - Wean supplemental oxygen as tolerated. 4. Lactic Acidosis of 2.4 mmol/L present on admission compounding #1 - #3 - Serialize lactate to follow trend. Patient has no evidence of acute infection or sepsis with patient afebrile and white blood cell count of 4.7K present on admission so antibiotics initiated in ER were not continued. 5. ESRD; on HD (--) with patient thankfully still able to make urine along with chronic anemia; with history of low iron and a low-normal hemoglobin of 7.4 g/dL present on admission adding to the medical complexity of #1 - #4 - Continue IV Bumex as noted above. Check daily CBC. Type & Screen blood. Transfuse of hemoglobin <7 g/dL. Hemoccult stools. 6. History of admission here from September 04, 2023 to September 10, 2023 for treatment of hypertensive crisis and hyperkalemia with hypertensive encephalopathy after truncated hemodialysis session stopped due to abdominal pain setting the backdrop for #1 - #5 - Last admission for this type or presentation was more severe but it is similar enough to potentially contact her driver merchandiser to see if more fluid can be taken off at HD to avoid further serial readmission. Patient denies excessive or recent significant increase in her normal fluid intake. 7. Thyroid Nodules incidentally noted on CTA of chest this admission in the setting of previously known Hypothyroidism; on levothyroxine - Resume levothyroxine and check TSH. Will order thyroid ultrasound as recommended by radiologist. 8. Essential Hypertension; on lisinopril, nifedipine, hydralazine, carvedilol and clonidine patch - Maintain home regimen plus give Hydralazine IV prn for systolic blood pressure > 160 mmHg. 9. Hyperlipidemia; on atorvastatin - Continue statin and check Lipid Profile in light of #2. 10. History of metastatic renal cell carcinoma; status post Right nephrectomy with local recurrence in the bladder x 2; status post TURBT - Noted. 11. History of neuro paraneoplastic syndrome; previously treated with steroids and followed by [facility] [place] - Noted. 12. History of chronic Thrombocytopenia - Stable with platelet count of 168K present on admission. 13. History of syncope - Noted. 14. History of Sjogren's syndrome - Stable. 15. History of vertigo - Give meclizine prn. 16. History of chronic bilateral lower extremity edema - Stable. 17. History of glaucoma; on latanoprost eyedrops - Maintain latanoprost eyes drops as previous. 18. History of macular degeneration - Noted. 19. History of shingles; on valacyclovir - Resume valacyclovir as before. 20. GERD; on pantoprazole twice daily - Continue current regimen. 21. RA - Stable with no evidence of acute flare. 22. OA; with history of bilateral TKR's and lumbar spinal stenosis - Give Tylenol prn pain or fever. 23. DVT prophylaxis - Patient on renally-dosed Lovenox for #2 plus SCD's. Total time: Approximately (but not less than) 75 minutes. Charges/Coding Visit Charges Inpatient E&M: 93663 Init Hosp L3
[2024-05-15] MEDS: 0.9% Normal Saline (250mL Bag) 250 ML 999 ML IV (00:22)
[2024-05-15] MEDS: Vancomycin HCl 1,250 MG in 0.9% Normal Saline (250mL Bag) 250 ML 167 MG IV (00:22)
[2024-05-15] MEDS: Aspirin 325 MG Tablet PO (01:15)
[2024-05-15 01:30] LABS: Mucous, Urine 0 SEEN /hpf (<or=2+); Squamous Epithelial Cells - UA 0 SEEN /hpf (5-10)
[2024-05-15] MEDS: Enoxaparin 40 MG/0.4 ML Syringe SC (01:32)
[2024-05-15 01:35] LABS: Reflex Lactate? Y
[2024-05-15] MEDS: Morphine 4 MG/ML Syringe IV (01:48)
[2024-05-15 01:49] LABS: Color, Urine Red (Yellow); Glucose, Dipstick 100 mg/dl (Normal); Ketone-Dipstick Negative (Negative); Leukocyte Esterase-Dipstick 25 /ul (Negative); Nitrite-Dipstick Negative (Negative); Occult Blood-Urine 250 /ul (Negative); Protein-Dipstick 500 mg/dl (Negative); Specific Gravity, Urine 1.015 (1.002-1.030); Urine Bilirubin Dipstick Negative (Negative); Urine Clarity Turbid (Clear); Urine Urobilinogen Normal (Normal)
[2024-05-15] MEDS: Ondansetron 4 MG/2 ML Vial IV (01:49)
[2024-05-15 01:54] LABS: Bacteria 3+ /hpf (None Seen); Red Blood Cells-Urine > 100 SEEN /hpf (0-5); White Blood Cells 0-5 SEEN /hpf (0-5)
[2024-05-15 01:58] LABS: Cholesterol 149 mg/dL (200); High Density Lipoprotein 54 mg/dL; Triglycerides 130 mg/dL; Very Low Density Lipoprotein 26 mg/dL (5-40)
[2024-05-15 02:27] LABS: Lactic Acid 1.1 mmol/L (0.4-1.9)
[2024-05-15] MEDS: hydrALAZINE 20 MG/ML Vial 10 MG IV (02:28)
--- NOTE | 2024-05-15 03:02 | ED.RN ---
ATTEMPTED TO CALL PT. SON TO UPDATE HIM ON HER ADMISSION, LISTED ON CHART, AND THERE WAS NO ANSWER.
[2024-05-15 04:20] LABS: Troponin-I HS 814 pg/mL (3.0-54.0)
--- NOTE | 2024-05-15 05:40 | ECHOD_ITS ---
Reason For Study: CHF Procedure This was a 2D Doppler, Color Flow transthoracic echocardiogram. Myocardial strain analysis was performed in this exam to aid in the assessment of cardiac function. Exam performed portable in patient room. Left Ventricle Normal LV size. Mild to moderate LV concentric hypertrophy. Sigmoid septum of the elderly. The global longitudinal strain = -11.5% (abnormal). Severe anterior apical and mid to distal septal hypokinesis to akinesis. Estimated LVEF 40%. Stage 2 diastolic dysfunction. Right Ventricle Normal right ventricle. Atria The left atrium is mildly enlarged. Normal right atrium. Possible catheter artifact in the right atrium. Mitral Valve Mild (1+) mitral valve insufficiency. Tricuspid Valve Mild tricuspid valve insufficiency. Right ventricular systolic pressure estimated to be 61 mmHg. Aortic Valve There is no aortic stenosis. No aortic valve insufficiency. Pulmonic Valve The pulmonic valve is not well visualized. Great Vessels Normal sized aortic root. Pericardium/Pleural Trivial pericardial effusion. Moderate size left pleural effusion. MMode/2D Measurements & Calculations LVIDd: 4.1 cm IVSd: 1.5 cm LVOT diam: 2.0 cm LVIDs: 2.8 cm LVPWd: 1.2 cm LVOT area: 3.1 cm2 RVDd: 3.6 cm FS: 32.5 % Ao root diam: 3.1 cm LAV(MOD-bp): 63.4 ml LVAd ap4: 26.7 cm2 LA dimension: 3.8 cm LAV(MOD-bp) Indexed: 43.5 ml/m2 LVLd ap4: 6.8 cm LAV(MOD-sp2): 75.7 ml EDV(MOD-sp4): 80.4 ml LAV(MOD-sp4): 51.3 ml EDV(sp4-el): 89.4 ml LVAs ap4: 19.6 cm2 LVLs ap4: 6.3 cm ESV(MOD-sp4): 48.6 ml ESV(sp4-el): 51.7 ml EF(MOD-sp4): 39.6 % EF(sp4-el): 42.2 % SV(MOD-sp4): 31.8 ml SV(sp4-el): 37.7 ml LA A4 area: 19.6 cm2 SI(MOD-sp4): 21.8 ml/m2 LA dimension(2D): 4.1 cm RA A4 area: 13.9 cm2 TAPSE: 1.8 cm Time Measurements MV dec time: 0.26 sec Doppler Measurements & Calculations MV E max lalit: 74.6 cm/sec Lat Peak E' Lalit: 4.4 cm/sec Med Peak E' Lalit: 3.9 cm/sec MV A max lalit: 122.5 cm/sec E/E' lat: 17.1 E/E' med: 19.2 MV E/A: 0.61 MV V2 max: 137.1 cm/sec MV P1/2t max lalit: 84.2 cm/sec Ao V2 max: 164.0 cm/sec MV max P.5 mmHg MV P1/2t: 82.5 msec Ao max P.8 mmHg MV V2 mean: 61.1 cm/sec Ao V2 mean: 115.0 cm/sec MV mean P.9 mmHg MV dec slope: 298.7 cm/sec2 Ao mean P.0 mmHg MV V2 VTI: 31.7 cm MVA(P1/2t): 2.7 cm2 Ao V2 VTI: 32.9 cm AV (velocity ratio): 0.78 MVA(VTI): 2.5 cm2 ANNETTE(I,D): 2.4 cm2 ANNETTE(V,D): 2.3 cm2 LV V1 max: 124.4 cm/sec SV(LVOT): 78.2 ml PA V2 max: 87.6 cm/sec LV V1 max P.2 mmHg LV V1 mean P.0 mmHg LV V1 mean: 80.0 cm/sec LV V1 VTI: 25.5 cm TR max lalit: 340.0 cm/sec TR max P.2 mmHg ECHO/Echo Complete Interpretation Summary Severe anterior apical and mid to distal septal hypokinesis to akinesis. Estima kelechi LVEF 40%. Stage 2 diastolic dysfunction. The left atrium is mildly enlarged. Mild (1+) mitral valve insufficiency. Mild tricuspid valve insufficiency. Right ventricular systolic pressure estimated to be 61 mmHg. Moderate size left pleural effusion. Ordering Physician: Philippe Grant Performed By: Samm Barriga RCS
--- NOTE | 2024-05-15 06:50 | RAD_ITS ---
INDICATION: AE CHF EXAMINATION/TECHNIQUE: X-RAY - XR Chest 1 View AP portable. 6:21 AM COMPARISON: Prior study dated: 05/14/2024 FINDINGS: LINES/DEVICES: Indwelling central venous catheter unchanged position. LUNGS: Small bilateral pleural effusions increased compared to the prior with increased opacity in the lung bases. No pneumothorax. MEDIASTINUM: Unremarkable. CARDIAC SILHOUETTE: Enlarged. Stable size. BONES AND SOFT TISSUES: No acute abnormalities. RAD/Chest 1 View (Portable) IMPRESSION: Increased bilateral pleural effusions and basilar atelectasis or infiltrates. Electronically Signed: Avis De La O MD at 8:16 EST ,
[2024-05-15] MEDS: Levothyroxine 25 MCG TABLET PO (07:31)
[2024-05-15 08:21] LABS: BNP,B-Type NATRIURETIC PEPTIDE > 5000.0 pg/mL (0-100)
[2024-05-15] MEDS: Carvedilol 25 MG Tablet 50 MG PO ×2 (10:44→16:26)
[2024-05-15] MEDS: Pantoprazole Sodium 40 MG Tablet PO ×2 (10:44→22:07)
[2024-05-15] MEDS: Ondansetron 8 MG Tablet PO ×2 (10:45→22:06)
[2024-05-15] MEDS: Lisinopril 20 MG Tablet PO ×2 (10:45→22:07)
[2024-05-15] MEDS: Cholecalciferol (VIT D3) 25 MCG TABLET (1,000 UNITS) 50 MCG PO (10:45)
[2024-05-15] MEDS: NIFEdipine 60 MG Tablet PO ×2 (10:46→22:06)
[2024-05-15] MEDS: Bumetanide 1 MG/4 ML Vial 2 MG IV ×2 (10:46→22:08)
[2024-05-15] MEDS: 0.9% Saline Lock 10 ML Syringe IV ×2 (10:47→16:25)
--- NOTE | 2024-05-15 11:13 | PCM.CONS.R ---
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 The patient is admitted for treatment of acute hypoxic respiratory failure attributed to decompensated heart failure. Nephrology is following for ESRD. ESRD. The patient dialyzes on MWF schedule as outpatient. She dialyzes at [facility] on MWF schedule. She is followed at [facility] by Dr. Massey. The patient did receive her entire prescribed dialysis treatment on 05/14/2024 prior to admission. Although the patient did receive contrast with CT PE on 05/14/2024, there is no urgent need to dialyze her today. The patient does not appear to be overtly volume overloaded on exam. She is only on 2 L nasal cannula oxygen. We can arrange for dialysis again on 05/17/2024. We will reassess patient again tomorrow. If the need for dialysis (volume overload) arises prior to 05/17/2024, the patient will need to be transferred since we lack dialysis capability this weekend. 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 The patient presents to the hospital on 05/14/2024 with dyspnea and cough. The patient is admitted to the hospital for treatment of acute hypoxic respiratory failure attributed to decompensated heart failure. Nephrology is asked see the patient because of ESRD. The patient dialyzes on MWF schedule at [facility]. She is followed as outpatient by Dr. Massey. The patient did received full dialysis treatment (2.5 hours) on 05/14/2024 prior to presentation to the hospital. The patient feels better today. She denies current dyspnea at rest. There is no chest pain or pressure. The patient denies nausea, vomiting or diarrhea. There has been no edema of the lower extremities. [facility] Medical History (Updated 05/15/24 @ 05:[address] Philippe Grant, DO) ESRD on dialysis Bladder cancer History of echocardiogram Wears glasses Post-menopausal Cancer Anxiety History of steroid therapy Walker as ambulation aid Low iron High cholesterol Injury of head and neck [place] Non-smoker Heart murmur Mitral regurgitation Hypothyroidism Vertigo Cardiomyopathy Sjogren syndrome with inflammatory arthritis Arthritis Hyperlipidemia Type 2 diabetes mellitus CKD (chronic kidney disease) stage 5, GFR less than 15 ml/min Bilateral lower extremity edema Macular degeneration Lumbar spinal stenosis Glaucoma Heart failure Osteoporosis Thyroid disease Gastric reflux Hypertension Hx of fracture of wrist Rheumatoid arthritis Kidney failure Cancer Anemia Home Medications ?Medication ?Instructions ?Recorded ?Last Taken ?Type latanoprost 0.005 % eye drops 1 drp EACH EYE QPM glaucoma 09/06/23 05/14/24 History clonidine HCl 0.1 mg tablet 0.1 mg PO Q6H PRN hypertensive 11/07/23 Unknown History emergency atorvastatin 10 mg tablet 10 mg PO DAILY #90 tabs 02/11/24 05/14/24 Rx carvedilol 25 mg tablet 50 mg (2 x 25 mg) PO BID #180 tabs 02/11/24 05/14/24 Rx cholecalciferol (vitamin D3) 62.5 See Rx Instructions PO .COMPLEX 02/11/24 Unknown Rx mcg (2,500 unit) capsule #90 caps handicap placard #1 ea 02/11/24 Unknown Rx levothyroxine 25 mcg tablet 25 mcg PO DAILY thryoid #90 tabs 02/11/24 05/14/24 Rx lisinopril 20 mg tablet 20 mg PO BID hypertension #180 tabs 02/11/24 05/14/24 Rx mirtazapine 7.5 mg tablet 7.5 mg PO QHS #90 tabs 02/11/24 05/14/24 Rx nifedipine 60 mg tablet,extended 60 mg PO BID BLOOD PRESSURE #180 02/11/24 05/14/24 Rx release tabs pantoprazole 40 mg tablet,delayed 40 mg PO BID #180 tabs 02/11/24 05/14/24 Rx release clonidine 0.1 mg/24 hr weekly 1 patch transdermal ROLON #12 ea 03/08/24 05/09/24 Rx transdermal patch acetaminophen 650 mg 650 mg PO Q8H PRN pain, mild 05/15/24 Unknown History tablet,extended release (8 Hour Pain Reliever) cetirizine 10 mg tablet (24Hour 10 mg PO DAILY PRN rash 05/15/24 Unknown History Allergy) cholecalciferol (vitamin D3) 125 62.5 mcg PO DAILY supplement 05/15/24 05/14/24 History mcg (5,000 unit) tablet gabapentin 100 mg capsule 100 mg PO TID PRN shingles 05/15/24 05/14/24 History hydralazine 100 mg tablet 100 mg PO Q8H PRN hypertension 05/15/24 Unknown History hydrocodone-acetaminophen 5-325mg 1 tab PO Q6H PRN PRN pain 05/15/24 Unknown History 5mg-325mg ondansetron 8 mg disintegrating 8 mg PO BID supplement 05/15/24 05/14/24 History tablet Allergy/AdvReac Type Severity Reaction Status Date / Time adalimumab (From Humira) Allergy Hives Verified 05/14/24 20:29 Family History Mother Heart disease Hypertension Osteoporosis Father CVA (cerebral vascular accident) Hypertension Surgical History History of surgery Hx of esophagogastroduodenoscopy H/O transurethral resection of bladder tumor (TURBT) Hx of colonoscopy S/P total knee arthroplasty S/P vein stripping S/P partial hysterectomy History of bladder surgery History of nephrectomy Social History household members: family Smoking Status: Never smoker alcohol intake: never substance use type: does not use Physical Exam Narrative General: Alert and oriented x3, NAD. HEENT: Normocephalic, atraumatic. Mucous membrane moist without erythema. PERRLA, EOMI. Hearing is intact. Neck: Supple, no JVD. Trachea is midline. No thyromegaly or lymphadenopathy. Cardiovascular: Normal S1, S2. No rubs, murmurs, or gallops. Respiratory: Lungs are clear to auscultation bilaterally. No wheezing, rhonchi, or rales. Abdomen: Normal bowel sounds, soft, nontender, no guarding or rebound, no organomegaly. Extremities: No clubbing, cyanosis, or edema. Musculoskeletal: Full passive range of motion, no joint swelling. Psychiatric: Normal mood and affect. Skin: Warm and dry, no rash. Neurologic: Cranial nerve II to XII are grossly intact. No focal neurologic deficits. Lab / Micro Data 05/14/24 20:45 05/14/24 20:45 Labs: Laboratory Results - last 24 hr 05/14/24 20:45: WBC 4.7, RBC 2.41 L, Hgb 7.4 L, Hct 23.7 L, MCV 98.3, MCH 30.7, MCHC 31.2 L, RDW Std Deviation 61.5 H, RDW Coeff of [place]ili[place] 17.0 H, Plt Count 168, MPV 11.1, Immature Gran % (Auto) 1.100 H, Neut % (Auto) 63.8, Lymph % (Auto) 24.6, [place] % (Auto) 6.1, Eos % (Auto) 4.0, Baso % (Auto) 0.4, Absolute Neuts (auto) 3.0, Absolute Lymphs (auto) 1.16, Nucleated RBC % 0, PT 15.0 H, INR 1.2, APTT 27.6, Sodium 139, Potassium 4.2, Chloride 101, Carbon Dioxide 30.0, Anion Gap 8, BUN 21 H, Creatinine 2.59 H, Estim Creat Clear Calc 11.61, Est GFR (MDRD) Af Amer 23 L, Est GFR (MDRD) Non-Af 19 L, BUN/Creatinine Ratio 8.1 L, Glucose 271 H, Calcium 9.2, Troponin I High Sens 171 H*, B-Natriuretic Peptide 2372.8 H 05/14/24 21:26: Lactic Acid 2.4 H* 05/14/24 21:35: Urine Color Cancelled, Urine Clarity Cancelled, Urine pH Cancelled, Ur Specific [place] Cancelled, U Specif Grav (Refrac) Cancelled, Urine Protein Cancelled, Urine Glucose (UA) Cancelled, Urine Ketones Cancelled, Urine Occult Blood Cancelled, Urine Nitrite Cancelled, Urine Bilirubin Cancelled, Urine Urobilinogen Cancelled, Ur Leukocyte Esterase Cancelled, Urine RBC Cancelled, Urine WBC Cancelled, Ur Squamous Epith Cells Cancelled, Ur Transition Epith Cell Cancelled, Ur Renal Epithelial Cell Cancelled, Calcium Oxalate Crystal Cancelled, Uric Acid Crystals Cancelled, Triple Phos Crystals Cancelled, Other Crystals Cancelled, Amorphous Sediment Cancelled, Urine Bacteria Cancelled, Hyaline Casts Cancelled, Fine Granular Casts Cancelled, Coarse Granular Casts Cancelled, Waxy Casts Cancelled, RBC Casts Cancelled, WBC Casts Cancelled, Urine Mucus Cancelled, Urine Trichomonas Cancelled, Urine Yeast Cancelled 05/14/24 23:11: Troponin I High Sens 418 H*, Triglycerides 130, Cholesterol 149, LDL Cholesterol 69, VLDL Cholesterol 26, HDL Cholesterol 54 05/15/24 01:23: Urine Color Red, Urine Clarity Turbid, Urine pH 8.0, Ur Specific [place] 1.015, Urine Protein 500 H, Urine Glucose (UA) 100 H, Urine Ketones Negative, Urine Occult Blood 250 H, Urine Nitrite Negative, Urine Bilirubin Negative, Urine Urobilinogen Normal, Ur Leukocyte Esterase 25 H, Urine RBC > 100 SEEN, Urine WBC 0-5 SEEN, Ur Squamous Epith Cells 0 SEEN, Urine Bacteria 3+, Urine Mucus 0 SEEN 05/15/24 01:57: Lactic Acid 1.1 05/15/24 03:25: Troponin I High Sens 814 H*, B-Natriuretic Peptide > 5000.0 H, TSH 1.920 05/15/24 06:37: Blood Type O POSITIVE, Antibody Screen NEGATIVE Micro: Microbiology 05/14/24 20:45 Mucosa - Nose SARS-CoV-2, Influenza & RSV (PCR) - Final ABG Data ABG results: ABG 05/14/24 20:56 Specimen Type ART Sample Site R Radial pH 7.36 Bicarbonate Actual 32.8 H Total CO2 35 Base Excess 7 H O2 Saturation 98 O2 % 2.0 ABG pCO2 57.7 H ABG pO2 109 H O2 Delivery Device Cannula Vent Mode Not entered Imaging Radiology Impression Chest X-Ray 05/14/24 20:42 IMPRESSION: Vascular congestion with a left-sided effusion. Right central venous catheter in good position. Electronically Signed: All Ames MD at 21:16 EST , Chest CTA 05/14/24 22:43 IMPRESSION: 1. No evidence of pulmonary emboli. 2. Findings consistent with pulmonary edema with moderate bilateral pleural effusions and compressive lower lobe atelectasis. 3.Incidental thyroid nodules. Nonemergent thyroid ultrasound recommended. Electronically Signed: Avis De La O MD at 0:29 EST , Echocardiogram 05/15/24 05:40 Interpretation Summary Severe anterior apical and mid to distal septal hypokinesis to akinesis. Estimated LVEF 40%. Stage 2 diastolic dysfunction. The left atrium is mildly enlarged. Mild (1+) mitral valve insufficiency. Mild tricuspid valve insufficiency. Right ventricular systolic pressure estimated to be 61 mmHg. Moderate size left pleural effusion. Ordering Physician: Philippe Grant Performed By: Samm Barriga RCS Chest X-Ray 05/15/24 06:50 IMPRESSION: Increased bilateral pleural effusions and basilar atelectasis or infiltrates. Electronically Signed: Avis De La O MD at 8:16 EST ,
[2024-05-15] MEDS: hydrALAZINE 50 MG Tablet 100 MG PO ×2 (14:16→22:06)
--- NOTE | 2024-05-15 14:30 | PCM.PN.HOSP ---
Reason for Visit Reason for Visit: Diagnoses Anemia, unspecified (05/15/24) Nontoxic single thyroid nodule (05/15/24) Acidosis, unspecified (05/15/24) Acute on chronic diastolic (congestive) heart failure (05/15/24) Pleural effusion, not elsewhere classified (05/15/24) End stage renal disease (05/15/24) Other abnormalities of breathing (05/15/24) Other specified abnormal findings of blood chemistry (05/15/24) Dependence on renal dialysis (05/15/24) Objective Data Objective Data Vital Signs: Vital Signs Temp Pulse Resp BP Pulse Ox O2 Del Method O2 Flow Rate 97.6 F L 77 18 174/93 H 100 Nasal Cannula 2 05/15/24 06:00 05/15/24 06:00 05/15/24 06:00 05/15/24 06:00 05/15/24 06:00 05/15/24 06:16 05/15/24 06:16 Oxygen Flow Rate (L/min) 2 Oxygen Delivery Method Nasal Cannula Weight: 112 lb 14.027 oz Body Mass Index (BMI) 22.0 Intake & Output: Intake and Output for Last 24 Hours 05/13/24 05/14/24 05/15/24 23:59 23:59 23:59 Intake Total 655 / 655 Output Total 275 / 275 Balance 380 / 380 Lab / Micro Data 05/14/24 20:45 05/14/24 20:45 Labs: Laboratory Results - last 24 hr 05/14/24 20:45: WBC 4.7, RBC 2.41 L, Hgb 7.4 L, Hct 23.7 L, MCV 98.3, MCH 30.7, MCHC 31.2 L, RDW Std Deviation 61.5 H, RDW Coeff of Wiliam 17.0 H, Plt Count 168, MPV 11.1, Immature Gran % (Auto) 1.100 H, Neut % (Auto) 63.8, Lymph % (Auto) 24.6, Ross % (Auto) 6.1, Eos % (Auto) 4.0, Baso % (Auto) 0.4, Absolute Neuts (auto) 3.0, Absolute Lymphs (auto) 1.16, Nucleated RBC % 0, PT 15.0 H, INR 1.2, APTT 27.6, Sodium 139, Potassium 4.2, Chloride 101, Carbon Dioxide 30.0, Anion Gap 8, BUN 21 H, Creatinine 2.59 H, Estim Creat Clear Calc 11.61, Est GFR (MDRD) Af Amer 23 L, Est GFR (MDRD) Non-Af 19 L, BUN/Creatinine Ratio 8.1 L, Glucose 271 H, Calcium 9.2, Troponin I High Sens 171 H*, B-Natriuretic Peptide 2372.8 H 05/14/24 21:26: Lactic Acid 2.4 H* 05/14/24 23:11: Troponin I High Sens 418 H*, Triglycerides 130, Cholesterol 149, LDL Cholesterol 69, VLDL Cholesterol 26, HDL Cholesterol 54 05/15/24 01:23: Urine Color Red, Urine Clarity Turbid, Urine pH 8.0, Ur Specific [place] 1.015, Urine Protein 500 H, Urine Glucose (UA) 100 H, Urine Ketones Negative, Urine Occult Blood 250 H, Urine Nitrite Negative, Urine Bilirubin Negative, Urine Urobilinogen Normal, Ur Leukocyte Esterase 25 H, Urine RBC > 100 SEEN, Urine WBC 0-5 SEEN, Ur Squamous Epith Cells 0 SEEN, Urine Bacteria 3+, Urine Mucus 0 SEEN 05/15/24 01:57: Lactic Acid 1.1 05/15/24 03:25: Troponin I High Sens 814 H*, TSH 1.920 Micro: Microbiology 05/14/24 20:45 Mucosa - Nose SARS-CoV-2, Influenza & RSV (PCR) - Final ABG Data ABG results: ABG 05/14/24 20:56 Specimen Type ART Sample Site R Radial pH 7.36 Bicarbonate Actual 32.8 H Total CO2 35 Base Excess 7 H O2 Saturation 98 O2 % 2.0 ABG pCO2 57.7 H ABG pO2 109 H O2 Delivery Device Cannula Vent Mode Not entered Radiography Diagnostic Testing: Radiology Impression Chest X-Ray 05/14/24 20:42 IMPRESSION: Vascular congestion with a left-sided effusion. Right central venous catheter in good position. Electronically Signed: All Ames MD at 21:16 EST , Chest CTA 01/17/25 22:43 IMPRESSION: 1. No evidence of pulmonary emboli. 2. Findings consistent with pulmonary edema with moderate bilateral pleural effusions and compressive lower lobe atelectasis. 3.Incidental thyroid nodules. Nonemergent thyroid ultrasound recommended. Electronically Signed: Avis De La O MD at 0:29 EST Reading Location ID and State: [address] [place] [address] Tel , Service support , Physical Exam Narrative Seen and examined Patient was admitted with shortness of breath. She has dyspnea on exertion gets short of breath on minimal to mild exertion even on conversation. Denies chest pain or pressure or tightness Physical exam General: Alert, Oriented x3, Cooperative, fatigue HEENT: Atraumatic, PERRLA, EOMI, Normocephalic Oral: Oral mucosa dry no Gingival or Mucosal Lesions/ Ulcerations Neck: Supple, No JVD, Negative Carotid Bruits Chest wall/Lungs: Air entry diminished in bilateral lung bases, bilateral small/moderate effusion. No crepitation/rhonchi Cardiovascular: Regular rate, Regular Rhythm, Normal S1, Normal S2, systolic murmur Abdomen: Bowel Sounds Present, Soft, Non Tender, Non-Distended : No dysuria. No renal angle tenderness. No suprapubic tenderness. Extremities: No edema, Capillary Refill Less than 3 Seconds Skin: No rashes, No breakdown Musculoskeletal: No Tenderness to Palpation of Joints or Extremities. ROM decreased. Mild decreased muscle bulk of lower extremities Neurological: Cranial nerves II-XII grossly intact, DTR 2+/4. No acute focal neurological deficit. Psych/Mental Status: Flat affect. Assessment & Plan Assessment/Plan (1) Acute on chronic diastolic CHF (congestive heart failure): (2) Pleural effusion: (3) Elevated troponin: (4) Anemia: QUALIFIERS: Anemia type: unspecified type Qualified Code(s): D64.9 - Anemia, unspecified PLAN: Plan 83-year-old female was admitted with a chief complaint of shortness of breath, hypoxia SpO2 77% on room air by EMS. After supper, she stood up in order to go to bathroom felt short of breath and almost passed out and had difficulty in breathing. 1. AE of chronic diastolic CHF; with preserved LVEF and bilateral pleural effusion and pulmonary hypertension: Patient is being admitted in PCU. Chest x-ray and CTA chest reviewed. No PE. Moderate bilateral pleural effusion and pulmonary edema. BNP elevated. Heart failure core measures including intake and output, fluid restriction less than 1500 mL, daily weight monitoring, kidney and electrolytes monitoring. Bumex increased to 1 mg IV twice daily. Incentive spirometry and Pep. Discussed with the pattern marking supervisor and patient does not need dialysis today and most likely not tomorrow. Lactic acid 2.4, repeat 1 was normal, 1.1. Probably due to decreased peripheral perfusion 2. Mildly elevated troponin probably due to acute cardiac strain/pulmonary edema: Patient does not have chest pain pressure or tightness. Troponins 171, 418, 814. 2D echo was done and echo findings discussed with the certified veterinary technician Dr. Dang. EF 40%, stage II diastolic dysfunction, mild to moderate concentric LVH, severe anterior apical and mid to distal septal hypokinesis to akinesis. Mild MR, mild TR RVSP 61 mm this is to moderate pulmonary hypertension. Moderate size left pleural effusion. She is on carvedilol 50 mg twice daily, home dose, hydralazine, lisinopril and Procardia XL. She is on maximal medical therapy. Lipid profile shows TG 130, LDL 69. HDL 54. Cop Breaker opinion was to follow-up certified veterinary technician as an outpatient. 3. ESRD; on HD () with anemia of chronic disease/CKD: Patient was evaluated by pattern marking supervisor. She does not need dialysis today is more probably not tomorrow. She was accepted by [facility] for dialysis as we did not have dialysis nurse on this weekend but she does not need diuresis therefore transfer was canceled. This was done as per pattern marking supervisor recommendation. 4. Chronic severe anemia: H&H chronically low stays between 7 to to 9 g. Monitor CBC daily. If it drops less than 7 g will need PRBC transfusion. 5. Incidental thyroid Nodules: TSH normal 1.920. CTA chest shows few thyroid nodules largest in the left lobe 1.6 cm. Since the patient came for primary complaint of CHF exacerbation, not related to thyroid nodules therefore thyroid ultrasound and further workup can be done as an outpatient when patient is stable. 6. Essential Hypertension; on lisinopril, nifedipine, hydralazine, carvedilol and clonidine patch - Maintain home regimen plus give Hydralazine IV prn for systolic blood pressure > 160 mmHg. 7. Hyperlipidemia; on atorvastatin as mentioned above 8. Chronic metastatic renal cell carcinoma status post right nephrectomy status and no gallbladder recurrence status post TURBT. History of metastatic renal cell carcinoma; status post Right nephrectomy with local recurrence in the bladder x 2; status post TURBT - Noted. other multiple comorbidities include history of shingles on valacyclovir, chronic thrombocytopenia, platelet about 100 68K, GERD, RA and degenerative osteoarthritis status post bilateral TKR and lumbar spinal stenosis DVT prophylaxis - Patient on renally-dosed Lovenox. Bilateral SCDs I talked to the patient's [id number], Dr. Durand and gave the overall clinical status including history of present illness, labs and my assessment and discussed about the imaging. Also discussed about the pattern marking supervisor recommendation that she did not need dialysis on the weekend. She wanted to cancel the transfer to [facility] if she did not need dialysis because that was the reason for transfer. Discussed with the charge nurse. Total time of the visit including total time spent in counseling or coordination of care, (more than 50% of the total time, spent in obtaining medical information from nurses and other ancillary care providers ,explaining to the patient about labs, imaging, diagnosis and management of active complex medical conditions), discussion with the pattern marking supervisor and certified veterinary technician, review of labs and imaging is 40minutes. Charges/Coding Visit Charges Inpatient E&M: 19505 Subs Hosp L3
[2024-05-15 20:37] LABS: Hemoglobin 7.3 g/dL (12.0-15.0)
[2024-05-15] MEDS: Gabapentin 100 MG Capsule PO (22:07)
[2024-05-15] MEDS: Atorvastatin Calcium 10 MG Tablet PO (22:07)
[2024-05-15] MEDS: Latanoprost 0.005% 1 Bottle 1 DRP EACH EYE (22:07)
[2024-05-15] MEDS: Mirtazapine 15 MG Tablet 7.5 MG PO (22:08)
[2024-05-16] VITALS (11 sets, daily range): BP systolic 113–150; BP diastolic 55–69; PULSE 71–90; RESP 14–18; TEMP 36.2–37.6; O2SAT 98–100; BMI 22.8
[2024-05-16] MEDS: hydrALAZINE 50 MG Tablet 100 MG PO ×3 (05:45→20:41)
[2024-05-16] MEDS: Levothyroxine 25 MCG TABLET PO (05:45)
[2024-05-16 06:59] LABS: Absolute Lymphocyte Count 1.33 X10^3/uL (0.83-4.51); Absolute Neutrophil Count 3.5 X10^3/uL (2.0-7.7); Basophil# 0.01 X10^3/uL; Basophil% 0.2 % (0-1); Eosinophil# 0.19 X10^3/uL; Eosinophils% 3.4 % (0-5); Hematocrit 23.2 % (37-47); Hemoglobin 7.3 g/dL (12.0-15.0); Lymphocyte # 1.33 X10^3/ul (0.83-4.51); Mean Corp Hgb Conc 31.5 g/dL (32-36); Mean Corpuscular Volume 95.5 fL (81-99); Mean Platelet Vol. 11.1 fl (6.2-12.0); Monocyte# 0.48 X10^3/uL; Monocyte% 8.6 % (0-10); NRBC Flagged by Analyzer 0 % (0-5); Neutrophil % 63.1 % (47-70); POSITIVE MORPHOLOGY YES; Platelet Count 125 K/mm3 (150-450); RBC Distribution Width CV 18.6 % (11.6-14.6); RBC Distribution Width SD 65.6 fl (35.1-43.9); Red Blood Count 2.43 M/mm3 (4.2-5.4); White Blood Count 5.6 K/mm3 (4.4-11.0)
[2024-05-16 07:08] LABS: Differential Indicated SCAN CRITERIA MET
[2024-05-16 07:30] LABS: Anion Gap 6 (5-15); BUN 36 mg/dL (7-18); BUN/Creat Ratio 8.5 RATIO (10-20); Calcium,Total 8.7 mg/dL (8.5-10.1); Chloride 102 mmol/L (98-107); Creatinine, Serum 4.25 mg/dL (0.55-1.02); EST Glomerular Filtration Rate 11 mL/min (>60); Est Glom Filt Rate - Afr Amer 13 mL/min (>60); Estimated Creatinine Clearance 7.08 ml/min; Glucose 103 mg/dL (74-106); Potassium 5.3 mmol/L (3.5-5.1); Sodium Level 136 mmol/L (136-145)
[2024-05-16 07:33] LABS: Anisocytosis 1+; Hypochromasia 1+
[2024-05-16 07:45] LABS: Bacteria 0 SEEN /hpf (None Seen); Mucous, Urine 0 SEEN /hpf (<or=2+); Squamous Epithelial Cells - UA 0 SEEN /hpf (5-10)
[2024-05-16 08:13] LABS: Glucose, Dipstick Normal (Normal); Ketone-Dipstick Negative (Negative); Nitrite-Dipstick Negative (Negative); Protein-Dipstick 500 mg/dl (Negative); Specific Gravity, Urine 1.015 (1.002-1.030); Urine Bilirubin Dipstick Negative (Negative); Urine Urobilinogen Normal (Normal)
[2024-05-16 08:14] LABS: Color, Urine RED (Yellow)
[2024-05-16 08:15] LABS: Urine Clarity Turbid (Clear)
[2024-05-16 08:17] LABS: Red Blood Cells-Urine > 100 SEEN /hpf (0-5); White Blood Cells 10-25 SEEN /hpf (0-5)
[2024-05-16] MEDS: NIFEdipine 60 MG Tablet PO ×2 (08:20→20:40)
[2024-05-16] MEDS: Carvedilol 25 MG Tablet 50 MG PO ×2 (08:20→17:08)
[2024-05-16] MEDS: Pantoprazole Sodium 40 MG Tablet PO ×2 (08:20→20:40)
[2024-05-16] MEDS: Lisinopril 20 MG Tablet PO (08:21)
[2024-05-16] MEDS: Gabapentin 100 MG Capsule PO ×2 (08:21→20:40)
[2024-05-16] MEDS: Ondansetron 8 MG Tablet PO ×2 (08:21→20:39)
[2024-05-16] MEDS: Cholecalciferol (VIT D3) 25 MCG TABLET (1,000 UNITS) 50 MCG PO (08:21)
--- NOTE | 2024-05-16 08:22 | NURSING ---
Medications did not save after scanning and signing off. Reentered all given medications manually.
[2024-05-16] MEDS: 0.9% Saline Lock 10 ML Syringe IV ×2 (09:50→17:18)
[2024-05-16] MEDS: Bumetanide 1 MG/4 ML Vial 2 MG IV ×2 (09:50→17:08)
[2024-05-16] MEDS: cloNIDine HCl 0.1 MG Patch TD (09:55)
[2024-05-16] MEDS: Lactulose 20 GM/30 ML UDC PO (11:09)
--- NOTE | 2024-05-16 12:06 | PN.HOSP_ITS ---
Reason for Visit Reason for Visit: Diagnoses Anemia, unspecified (05/15/24) Acidosis, unspecified (05/15/24) Acute on chronic diastolic (congestive) heart failure (05/15/24) Pleural effusion, not elsewhere classified (05/15/24) End stage renal disease (05/15/24) Other abnormalities of breathing (05/15/24) Other specified abnormal findings of blood chemistry (05/15/24) Dependence on renal dialysis (05/15/24) Objective Data Objective Data Vital Signs: Vital Signs Temp Pulse Resp BP Pulse Ox O2 Del Method O2 Flow Rate 98.9 F 72 14 113/55 L 100 Nasal Cannula 2 05/16/24 09:45 05/16/24 09:45 05/16/24 09:45 05/16/24 09:45 05/16/24 09:45 05/16/24 09:45 05/16/24 10:21 Oxygen Flow Rate (L/min) 2 Oxygen Delivery Method Nasal Cannula Weight: 117 lb 4.575 oz Body Mass Index (BMI) 22.8 Intake & Output: Intake and Output for Last 24 Hours 05/14/24 05/15/24 05/16/24 23:59 23:59 23:59 Intake Total 1617 / 1737 120 / 120 Output Total 425 / 425 100 / 100 Balance 1192 / 1312 Lab / Micro Data 05/16/24 06:25 05/16/24 06:25 Labs: Laboratory Results - last 24 hr 05/15/24 06:37: Crossmatch See Detail 05/15/24 20:07: Hgb 7.3 L, Hct 23.0 L 05/16/24 06:25: WBC 5.6, RBC 2.43 L, Hgb 7.3 L, Hct 23.2 L, MCV 95.5, MCH 30.0, MCHC 31.5 L, RDW Std Deviation 65.6 H, RDW Coeff of Wiliam 18.6 H, Plt Count 125 L, MPV 11.1, Immature Gran % (Auto) 0.700, Neut % (Auto) 63.1, Lymph % (Auto) 24.0, [place] % (Auto) 8.6, Eos % (Auto) 3.4, Baso % (Auto) 0.2, Absolute Neuts (auto) 3.5, Absolute Lymphs (auto) 1.33, Nucleated RBC % 0, Hypochromasia 1+, Anisocytosis 1+, Sodium 136, Potassium 5.3 H, Chloride 102, Carbon Dioxide 28.0, Anion Gap 6, BUN 36 H, Creatinine 4.25 H, Estim Creat Clear Calc 7.08, Est GFR (MDRD) Af Amer 13 L, Est GFR (MDRD) Non-Af 11 L, BUN/Creatinine Ratio 8.5 L, Glucose 103, Calcium 8.7 05/16/24 07:35: Urine Color RED, Urine Clarity Turbid, Urine pH 8.0, Ur Specific White 1.015, Urine Protein 500 H, Urine Glucose (UA) Normal, Urine Ketones Negative, Urine Occult Blood TNP, Urine Nitrite Negative, Urine Bilirubin Negative, Urine Urobilinogen Normal, Ur Leukocyte Esterase TNP, Urine RBC > 100 SEEN, Urine WBC 10-25 SEEN, Ur Squamous Epith Cells 0 SEEN, Urine Bacteria 0 SEEN, Urine Mucus 0 SEEN Micro: Microbiology 05/15/24 01:23 Urine, Clean Catch Urine Culture - Preliminary Culture exhibits no growth. 05/14/24 20:45 Mucosa - Nose SARS-CoV-2, Influenza & RSV (PCR) - Final Physical Exam Narrative Seen and examined No acute issues overnight. Patient slept good. She complained of not moving bowels since Friday. Stool softener ordered. Patient was admitted with shortness of breath. She has dyspnea on exertion gets short of breath on minimal to mild exertion even on conversation. Denies chest pain or pressure or tightness Physical exam General: Alert, Oriented x3, Cooperative, fatigue HEENT: Atraumatic, PERRLA, EOMI, Normocephalic Oral: Oral mucosa dry no Gingival or Mucosal Lesions/ Ulcerations Neck: Supple, No JVD, Negative Carotid Bruits Chest wall/Lungs: Air entry diminished in bilateral lung bases, bilateral small/moderate effusion. No crepitation/rhonchi Cardiovascular: Regular rate, Regular Rhythm, Normal S1, Normal S2, systolic murmur Abdomen: Bowel Sounds Present, Soft, Non Tender, Non-Distended : On HD no dysuria. No renal angle tenderness. No suprapubic tenderness. Extremities: No edema, Capillary Refill Less than 3 Seconds Skin: No rashes, No breakdown Musculoskeletal: No Tenderness to Palpation of Joints or Extremities. ROM decreased. Mild decreased muscle bulk of lower extremities Neurological: Cranial nerves II-XII grossly intact, DTR 2+/4. No acute focal neurological deficit. 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 Assessment & Plan Assessment/Plan (1) Acute on chronic diastolic CHF (congestive heart failure): (2) Pleural effusion: (3) Elevated troponin: (4) Anemia: QUALIFIERS: Anemia type: unspecified type Qualified Code(s): D 64.9 - Anemia, unspecified PLAN: Plan 83-year-old female was admitted with a chief complaint of shortness of breath, hypoxia SpO2 77% on room air by EMS. After supper, she stood up in order to go to bathroom felt short of breath and almost passed out and had difficulty in breathing. 1. AE of chronic diastolic CHF; with preserved LVEF and bilateral pleural effusion and pulmonary hypertension: Patient is being admitted in PCU. Chest x- ray and CTA chest reviewed. No PE. Moderate bilateral pleural effusion and pulmonary edema. BNP elevated. Heart failure core measures including intake and output, fluid restriction less than 1500 mL, daily weight monitoring, kidney and electrolytes monitoring. Bumex increased to 1 mg IV twice daily. Incentive spirometry and Pep. Discussed with the lead quality technician and patient does not need dialysis today and most likely not tomorrow. Lactic acid 2.4, repeat 1 was normal, 1.1. Probably due to decreased peripheral perfusion 05/16: No shortness of breath. Respiratory status is better. Pulse ox 100% on 2 L of oxygen, wean down the oxygen. Heart rate and blood pressure are controlled. 2. Mildly elevated troponin probably due to acute cardiac strain/pulmonary edema: Patient does not have chest pain pressure or tightness. Troponins 171, 418, 814. 2D echo was done and echo findings discussed with the scribing machine operator Dr. Dang. EF 40%, stage II diastolic dysfunction, mild to moderate concentric LVH, severe anterior apical and mid to distal septal hypokinesis to akinesis. Mild MR, mild TR RVSP 61 mm this is to moderate pulmonary hypertension. Moderate size left pleural effusion. She is on carvedilol 50 mg twice daily, home dose, hydralazine, lisinopril and Procardia XL. She is on maximal medical therapy. Lipid profile shows TG 130, LDL 69. HDL 54. Supervisor [employer] opinion was to follow-up scribing machine operator as an outpatient. 05/16: Patient used to follow some [place] scribing machine operator, last visited 2 years ago. She is eager to follow [place] [facility], names given. 3. ESRD; on HD (M-W-F) with anemia of chronic disease/CKD: Patient was evaluated by lead quality technician. She does not need dialysis today is more probably not tomorrow. She was accepted by [facility] for dialysis as we did not have dialysis nurse on this weekend but she does not need diuresis therefore transfer was canceled. This was done as per lead quality technician recommendation. 05/16: Discussed with the lead quality technician today. Plan is dialysis tomorrow morning 4. Chronic severe anemia: H&H chronically low stays between 7 to to 9 g. Monitor CBC daily. If it drops less than 7 g will need PRBC transfusion. 05/16: Even after transfusion of 1 PRBC yesterday her hemoglobin is still low 7.3 did not change. 5. Incidental thyroid Nodules: TSH normal 1.920. CTA chest shows few thyroid nodules largest in the left lobe 1.6 cm. Since the patient came for primary complaint of CHF exacerbation, not related to thyroid nodules therefore thyroid ultrasound and further workup can be done as an outpatient when patient is stable. 6. Essential Hypertension; on lisinopril, nifedipine, hydralazine, carvedilol and clonidine patch - Maintain home regimen plus give Hydralazine IV prn for systolic blood pressure > 160 mmHg. 7. Hyperlipidemia; on atorvastatin as mentioned above 8. Chronic metastatic renal cell carcinoma status post right nephrectomy status and no gallbladder recurrence status post TURBT. History of metastatic renal cell carcinoma; status post Right nephrectomy with local recurrence in the bladder x 2; status post TURBT - Noted. other multiple comorbidities include history of shingles on valacyclovir, chronic thrombocytopenia, platelet about 100 68K, GERD, RA and degenerative osteoarthritis status post bilateral TKR and lumbar spinal stenosis DVT prophylaxis - Patient on renally-dosed Lovenox. Bilateral SCDs I talked to the patient's [id number], Dr. Durand and gave the overall clinical status including history of present illness, labs and my assessment and discussed about the imaging. Also discussed about the lead quality technician recommendation that she did not need dialysis on the weekend. She wanted to cancel the transfer to [facility] if she did not need dialysis because that was the reason for transfer. Discussed with the charge nurse. Total time of the visit including total time spent in counseling or coordination of care, (more than 50% of the total time, spent in obtaining medical information from nurses and other ancillary care providers ,explaining to the patient about labs, imaging, diagnosis and management of active complex medical conditions), discussion with the lead quality technician and scribing machine operator, review of labs and imaging is 40minutes. Charges/Coding Visit Charges Inpatient E&M: 94269 Subs Hosp L2
[2024-05-16] MEDS: Senna/Docusate Sodium 1 Tablet 2 TABLET PO ×2 (14:06→20:39)
[2024-05-16] MEDS: Atorvastatin Calcium 10 MG Tablet PO (20:39)
[2024-05-16] MEDS: Latanoprost 0.005% 1 Bottle 1 DRP EACH EYE (20:39)
[2024-05-16] MEDS: Mirtazapine 15 MG Tablet 7.5 MG PO (20:39)
[2024-05-17] VITALS (19 sets, daily range): BP systolic 83–191; BP diastolic 55–80; PULSE 60–94; RESP 14–16; TEMP 36.1–37.3; O2SAT 96–100; BMI 23.2; BMI 21.9
[2024-05-17] MEDS: Levothyroxine 25 MCG TABLET PO (05:06)
[2024-05-17] MEDS: 0.9% Saline Lock 10 ML Syringe IV ×4 (05:09→17:20)
[2024-05-17 06:02] LABS: Absolute Neutrophil Count 4.8 X10^3/uL (2.0-7.7); Basophil# 0.01 X10^3/uL; Basophil% 0.1 % (0-1); Eosinophil# 0.19 X10^3/uL; Eosinophils% 2.7 % (0-5); Hematocrit 20.5 % (37-47); Hemoglobin 6.4 g/dL (12.0-15.0); Lymphocyte % 17.4 % (19-41); Mean Corp Hgb Conc 31.2 g/dL (32-36); Mean Corpuscular Hgb 30.3 pg (27.0-32.0); Mean Corpuscular Volume 97.2 fL (81-99); Mean Platelet Vol. 11.8 fl (6.2-12.0); Monocyte# 0.65 X10^3/uL; Monocyte% 9.4 % (0-10); NRBC Flagged by Analyzer 0 % (0-5); Neutrophil # 4.81 X10^3/uL (2.7-7.7); Neutrophil % 69.7 % (47-70); Platelet Count 125 K/mm3 (150-450); RBC Distribution Width CV 17.8 % (11.6-14.6); RBC Distribution Width SD 62.3 fl (35.1-43.9); Red Blood Count 2.11 M/mm3 (4.2-5.4); White Blood Count 6.9 K/mm3 (4.4-11.0)
[2024-05-17 06:30] LABS: Anion Gap 8 (5-15); BUN 49 mg/dL (7-18); BUN/Creat Ratio 8.5 RATIO (10-20); Calcium,Total 8.3 mg/dL (8.5-10.1); Chloride 102 mmol/L (98-107); Creatinine, Serum 5.74 mg/dL (0.55-1.02); EST Glomerular Filtration Rate 8 mL/min (>60); Est Glom Filt Rate - Afr Amer 9 mL/min (>60); Estimated Creatinine Clearance 5.24 ml/min; Glucose 98 mg/dL (74-106); Potassium 5.8 mmol/L (3.5-5.1); Sodium Level 134 mmol/L (136-145)
[2024-05-17] MEDS: 0.9% Normal Saline 1,000 ML IV.SOLN. 1000 ML OPERA.SITE (08:54)
[2024-05-17] MEDS: PureFlow B 2K Dialysis Soln 1 BAG 6 BAG PF (08:54)
[2024-05-17] MEDS: Cholecalciferol (VIT D3) 25 MCG TABLET (1,000 UNITS) 50 MCG PO (09:53)
[2024-05-17] MEDS: Carvedilol 25 MG Tablet 50 MG PO ×2 (09:53→17:16)
[2024-05-17] MEDS: Bumetanide 1 MG/4 ML Vial 2 MG IV ×2 (09:53→17:16)
[2024-05-17] MEDS: Pantoprazole Sodium 40 MG Tablet PO ×2 (09:54→20:06)
[2024-05-17] MEDS: Senna/Docusate Sodium 1 Tablet 2 TABLET PO ×2 (09:59→20:07)
--- NOTE | 2024-05-17 10:29 | PN.RENAL_ITS ---
Subjective Subjective Patient seen on dialysis. Tolerating treatment well. No overnight events. Objective Data Objective Data Vital Signs: Vital Signs Temp Pulse Resp BP Pulse Ox O2 Del Method O2 Flow Rate 97.1 F L 70 14 138/71 H 100 Nasal Cannula 2 05/17/24 08:50 05/17/24 09:50 05/17/24 09:20 05/17/24 09:50 05/17/24 08:50 05/17/24 09:20 05/17/24 09:20 Oxygen Flow Rate (L/min) 2 Oxygen Delivery Method Nasal Cannula Weight: 53.9 kg Body Mass Index (BMI) 23.2 Intake & Output: Intake and Output for Last 24 Hours 05/15/24 05/16/24 05/17/24 23:59 23:59 23:59 Intake Total 1617 / 1737 560 / 560 100 / 100 Output Total 425 / 425 150 / 150 50 / 50 Balance 1192 / 1312 410 / 410 50 / 50 Lab / Micro Data 05/17/24 05:01 05/17/24 05:01 Labs: Laboratory Results - last 24 hr 05/15/24 06:37: Crossmatch See Detail 05/17/24 05:01: WBC 6.9, RBC 2.11 L, Hgb 6.4 L, Hct 20.5 L, MCV 97.2, MCH 30.3, MCHC 31.2 L, RDW Std Deviation 62.3 H, RDW Coeff of Wiliam 17.8 H, Plt Count 125 L, MPV 11.8, Immature Gran % (Auto) 0.700, Neut % (Auto) 69.7, Lymph % (Auto) 17.4 L, [place] % (Auto) 9.4, Eos % (Auto) 2.7, Baso % (Auto) 0.1, Absolute Neuts (auto) 4.8, Absolute Lymphs (auto) 1.20, Nucleated RBC % 0, Sodium 134 L, Potassium 5.8 H, Chloride 102, Carbon Dioxide 24.0, Anion Gap 8, BUN 49 H, Creatinine 5.74 H, Estim Creat Clear Calc 5.24, Est GFR (MDRD) Af Amer 9 L, Est GFR (MDRD) Non-Af 8 L, BUN/Creatinine Ratio 8.5 L, Glucose 98, Calcium 8.3 L Micro: Microbiology 05/16/24 07:35 Urine, Random Urine Culture - Preliminary Culture exhibits no growth. 05/15/24 01:23 Urine, Clean Catch Urine Culture - Final Culture exhibits no growth. 05/14/24 21:26 Blood Culture (Wb) - Arm Right Blood Culture - Preliminary No growth in 48 hours. 05/14/24 21:26 Blood Culture (Wb) - Right Hand Blood Culture - Preliminary No growth in 48 hours. 05/14/24 20:45 Mucosa - Nose SARS-CoV-2, Influenza & RSV (PCR) - Final Physical Exam Narrative Alert and oriented x 3, no acute distress S1, S2, RRR Diminished breath sounds abdomen soft, nontender No pitting edema Assessment & Plan Assessment/Plan (1) ESRD on dialysis: PLAN: Plan Assessment/Plan: The patient is a 83-year-old female with past history of ESRD, hypertension, HFrEF, renal cell cancer status post right radical nephrectomy with metastasis to the bladder status post transurethral resection of bladder tumor, anemia, thrombocytopenia, Sjogren's syndrome, and hypothyroidism. The patient is admitted for treatment of acute hypoxic respiratory failure attributed to decompensated heart failure. Nephrology is following for ESRD. ESRD. The patient dialyzes on MWF schedule at [facility] followed by Dr. Reyes To undergo hemodialysis today 2K bath and attempting around 3 L fluid removal. Will evaluate for ultrafiltration needs tomorrow otherwise we will maintain Friday hemodialysis schedule while in hospital Hemoglobin dropped 6.4, patient to receive PRBC Blood pressures acceptable during dialysis today.
--- NOTE | 2024-05-17 10:49 | PN.HOSP_ITS ---
Reason for Visit Reason for Visit: Diagnoses Anemia, unspecified (05/15/24) Acidosis, unspecified (05/15/24) Acute on chronic diastolic (congestive) heart failure (05/15/24) Pleural effusion, not elsewhere classified (05/15/24) End stage renal disease (05/15/24) Other abnormalities of breathing (05/15/24) Other specified abnormal findings of blood chemistry (05/15/24) Dependence on renal dialysis (05/15/24) Objective Data Objective Data Vital Signs: Vital Signs Temp Pulse Resp BP Pulse Ox O2 Del Method O2 Flow Rate 97.1 F L 69 14 140/65 H 100 Nasal Cannula 2 05/17/24 08:50 05/17/24 10:20 05/17/24 09:20 05/17/24 10:20 05/17/24 08:50 05/17/24 10:20 05/17/24 10:20 Oxygen Flow Rate (L/min) 2 Oxygen Delivery Method Nasal Cannula Weight: 118 lb 13.266 oz Body Mass Index (BMI) 23.2 Intake & Output: Intake and Output for Last 24 Hours 05/15/24 05/16/24 05/17/24 23:59 23:59 23:59 Intake Total 1617 / 1737 560 / 560 100 / 100 Output Total 425 / 425 150 / 150 50 / 50 Balance 1192 / 1312 410 / 410 50 / 50 Lab / Micro Data 05/17/24 05:01 05/17/24 05:01 Labs: Laboratory Results - last 24 hr 05/15/24 06:37: Crossmatch See Detail 05/17/24 05:01: WBC 6.9, RBC 2.11 L, Hgb 6.4 L, Hct 20.5 L, MCV 97.2, MCH 30.3, MCHC 31.2 L, RDW Std Deviation 62.3 H, RDW Coeff of Wiliam 17.8 H, Plt Count 125 L, MPV 11.8, Immature Gran % (Auto) 0.700, Neut % (Auto) 69.7, Lymph % (Auto) 17.4 L, [place] % (Auto) 9.4, Eos % (Auto) 2.7, Baso % (Auto) 0.1, Absolute Neuts (auto) 4.8, Absolute Lymphs (auto) 1.20, Nucleated RBC % 0, Sodium 134 L, Potassium 5.8 H, Chloride 102, Carbon Dioxide 24.0, Anion Gap 8, BUN 49 H, Creatinine 5.74 H, Estim Creat Clear Calc 5.24, Est GFR (MDRD) Af Amer 9 L, Est GFR (MDRD) Non-Af 8 L, BUN/Creatinine Ratio 8.5 L, Glucose 98, Calcium 8.3 L Micro: Microbiology 05/16/24 07:35 Urine, Random Urine Culture - Preliminary Culture exhibits no growth. 05/15/24 01:23 Urine, Clean Catch Urine Culture - Final Culture exhibits no growth. 05/14/24 21:26 Blood Culture (Wb) - Arm Right Blood Culture - Preliminary No growth in 48 hours. 05/14/24 21:26 Blood Culture (Wb) - Right Hand Blood Culture - Preliminary No growth in 48 hours. 05/14/24 20:45 Mucosa - Nose SARS-CoV-2, Influenza & RSV (PCR) - Final Physical Exam Narrative Seen and examined No acute issues overnight. Patient slept good. No shortness of breath but hemoglobin dropped. Currently getting dialysis she complained of not moving bowels since Friday. Stool softener intensity increased along with Dulcolax suppository Patient was admitted with shortness of breath. She has dyspnea on exertion gets short of breath on minimal to mild exertion even on conversation. Denies chest pain or pressure or tightness Physical exam General: Alert, Oriented x3, Cooperative, fatigue HEENT: Atraumatic, PERRLA, EOMI, Normocephalic Oral: Oral mucosa dry no Gingival or Mucosal Lesions/ Ulcerations Neck: Supple, No JVD, Negative Carotid Bruits Chest wall/Lungs: Air entry diminished in bilateral lung bases, bilateral small/moderate effusion. No crepitation/rhonchi Cardiovascular: Regular rate, Regular Rhythm, Normal S1, Normal S2, systolic murmur Abdomen: Bowel Sounds Present, Soft, Non Tender, Non-Distended : On HD no dysuria. No renal angle tenderness. No suprapubic tenderness. Extremities: No edema, Capillary Refill Less than 3 Seconds Skin: No rashes, No breakdown Musculoskeletal: No Tenderness to Palpation of Joints or Extremities. ROM decreased. Mild decreased muscle bulk of lower extremities Neurological: Cranial nerves II-XII grossly intact, DTR 2+/4. No acute focal neurological deficit. 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 Assessment & Plan Assessment/Plan (1) Acute on chronic diastolic CHF (congestive heart failure): (2) Pleural effusion: (3) Elevated troponin: (4) Anemia: QUALIFIERS: Anemia type: unspecified type Qualified Code(s): D 64.9 - Anemia, unspecified PLAN: Plan 83-year-old female was admitted with a chief complaint of shortness of breath, hypoxia SpO2 77% on room air by EMS. After supper, she stood up in order to go to bathroom felt short of breath and almost passed out and had difficulty in breathing. 1. AE of chronic diastolic CHF; with preserved LVEF and bilateral pleural effusion and pulmonary hypertension: Patient is being admitted in PCU. Chest x- ray and CTA chest reviewed. No PE. Moderate bilateral pleural effusion and pulmonary edema. BNP elevated. Heart failure core measures including intake and output, fluid restriction less than 1500 mL, daily weight monitoring, kidney and electrolytes monitoring. Bumex increased to 1 mg IV twice daily. Incentive spirometry and Pep. Discussed with the permit coordinator and patient does not need dialysis today and most likely not tomorrow. Lactic acid 2.4, repeat 1 was normal, 1.1. Probably due to decreased peripheral perfusion 05/16: No shortness of breath. Respiratory status is better. Pulse ox 100% on 2 L of oxygen, wean down the oxygen. Heart rate and blood pressure are controlled. 05/17: I talked to the patient's [id number], Dr. Durand and she wanted extermination supervisor consult for optimization of medicine. New Patient Escort Dr. Szymanski consulted as per the patient's request. BP is 140/65 heart rate 69/min. I feel patient already on maximal tolerated medicine. 2. Mildly elevated troponin probably due to acute cardiac strain/pulmonary edema: Patient does not have chest pain pressure or tightness. Troponins 171, 418, 814. 2D echo was done and echo findings discussed with the extermination supervisor Dr. Dang. EF 40%, stage II diastolic dysfunction, mild to moderate concentric LVH, severe anterior apical and mid to distal septal hypokinesis to akinesis. Mild MR, mild TR RVSP 61 mm this is to moderate pulmonary hypertension. Moderate size left pleural effusion. She is on carvedilol 50 mg twice daily, home dose, hydralazine, lisinopril and Procardia XL. She is on maximal medical therapy. Lipid profile shows TG 130, LDL 69. HDL 54. New Patient Escort opinion was to follow-up extermination supervisor as an outpatient. 05/16: Patient used to follow some [place] extermination supervisor, last visited 2 years ago. She is eager to follow [facility], names given. 3. ESRD; on HD (--) with anemia of chronic disease/CKD: Patient was evaluated by permit coordinator. She does not need dialysis today is more probably not tomorrow. She was accepted by [facility] for dialysis as we did not have dialysis nurse on this weekend but she does not need diuresis therefore transfer was canceled. This was done as per permit coordinator recommendation. 05/16: Discussed with the permit coordinator today. Plan is dialysis tomorrow morning 05/17: Patient is getting hemodialysis 4. Chronic severe anemia: H&H chronically low stays between 7 to to 9 g. Monitor CBC daily. If it drops less than 7 g will need PRBC transfusion. 05/16: Even after transfusion of 1 PRBC yesterday her hemoglobin is still low 7.3 did not change. 05/17: Her hemoglobin dropped to 6.4 g%. 1 unit of PRBC ordered bleeding hemodialysis. 5. Incidental thyroid Nodules: TSH normal 1.920. CTA chest shows few thyroid nodules largest in the left lobe 1.6 cm. Since the patient came for primary complaint of CHF exacerbation, not related to thyroid nodules therefore thyroid ultrasound and further workup can be done as an outpatient when patient is stable. 6. Essential Hypertension; on lisinopril, nifedipine, hydralazine, carvedilol and clonidine patch - Maintain home regimen plus give Hydralazine IV prn for systolic blood pressure > 160 mmHg. 7. Hyperlipidemia; on atorvastatin as mentioned above 8. Chronic metastatic renal cell carcinoma status post right nephrectomy status and no gallbladder recurrence status post TURBT. History of metastatic renal cell carcinoma; status post Right nephrectomy with local recurrence in the bladder x 2; status post TURBT - Noted. other multiple comorbidities include history of shingles on valacyclovir, chronic thrombocytopenia, platelet about 100 68K, GERD, RA and degenerative osteoarthritis status post bilateral TKR and lumbar spinal stenosis DVT prophylaxis - Patient on renally-dosed Lovenox. Bilateral SCDs I talked to the patient's [id number]-zat, Dr. Durand today 05/17/2024 and gave the overall clinical status including history of present illness, labs and my assessment and discussed about the imaging. Also discussed about the permit coordinator recommendation that she did not need dialysis on the weekend. She wanted to cancel the transfer to [facility] if she did not need dialysis because that was the reason for transfer. Discussed with the charge nurse. Total time of the visit including total time spent in counseling or coordination of care, (more than 50% of the total time, spent in obtaining medical information from nurses and other ancillary care providers ,explaining to the patient about labs, imaging, diagnosis and management of active complex medical conditions), discussion with the permit coordinator and extermination supervisor, review of labs and imaging is 40minutes. Charges/Coding Visit Charges Inpatient E&M: 63958 [facility] Hosp L3
--- NOTE | 2024-05-17 10:53 | CON.PCM.CA_ITS ---
Assessment & Plan Assessment/Plan (1) Congestive heart failure (CHF): QUALIFIERS: Heart failure type: combined systolic and diastolic H eart failure chronicity: acute on chronic Qualified Code(s): I50.43 - Acute on chronic combined systolic (congestive) and diastolic (congestive) heart failure PLAN: Patient does appear to be volume overloaded. Agree with current medical therapy. Nifedipine could be switched to amlodipine 10 mg p.o. daily. I will leave this up to the industrial relations commissioner. Patient does have new wall motion abnormalities on the echo. Takotsubo cardiomyopathy is in the differential diagnosis. She could have underlying CAD that could be causing her wall motion abnormality as well. At this time and due to her overall medical condition, it would be better to treat her decompensated CHF, anemia etc. as is already being done. We could consider a limited echo either later this admission or as an outpatient to see if she has persistent wall motion abnormalities and based on her clinical situation at that time we could consider further workup. (2) Anemia: QUALIFIERS: Anemia type: unspecified type Qualified Code(s): D 64.9 - Anemia, unspecified PLAN: Agree with transfusion (3) ESRD on dialysis: (4) Hypertension: QUALIFIERS: Hypertension type: unspecified Qualified Code(s): I10 - Essential (primary) hypertension (5) LV dysfunction: HPI Consult Data Date of Consult: 05/17/24 HPI Narrative Reason for Consultation: Shortness of breath, elevated troponin, abnormal echo HPI Narrative: MONA ESTRELLA, is a 83 F who presents with shortness of breath and cough. Patient has history of hypertension, metastatic renal cancer status post nephrectomy and currently on hemodialysis, heart failure with preserved ejection fraction, chronic anemia presenting with shortness of breath and cough. She denies any chest pain. She was hypoxic on arrival. Lactic acid was elevated and her high-sensitivity troponin went up to around 800. Her chest x-ray was suggestive of pulmonary edema. BNP was elevated. She has been started on IV diuretics with some improvement in symptoms. She is being dialyzed today and the plan is to remove 3 L of fluid. Her hemoglobin today was 6.4 and she is scheduled to receive 1 unit of PRBC as well. Her 2D echo that was done this admission and the prior 1 were both reviewed. She does have severe apical hypokinesis that is new this admission. [facility] Medical History (Updated 05/17/24 @ 11:[address] Kenneth Szymanski MD) ESRD on dialysis Bladder cancer History of echocardiogram Wears glasses Post-menopausal Cancer Anxiety History of steroid therapy Walker as ambulation aid Low iron High cholesterol Injury of head and neck Syncope Falls Non-smoker Heart murmur Mitral regurgitation Hypothyroidism Vertigo Cardiomyopathy Sjogren syndrome with inflammatory arthritis Arthritis Hyperlipidemia Type 2 diabetes mellitus CKD (chronic kidney disease) stage 5, GFR less than 15 ml/min Bilateral lower extremity edema Macular degeneration Lumbar spinal stenosis Glaucoma Heart failure Osteoporosis Thyroid disease Gastric reflux Hypertension Hx of fracture of wrist Rheumatoid arthritis Kidney failure Cancer Anemia Home Medications ?Medication ?Instructions ?Recorded ?Last Taken ?Type latanoprost 0.005 % eye drops 1 drp EACH EYE QPM glaucoma 09/06/23 05/14/24 History clonidine HCl 0.1 mg tablet 0.1 mg PO Q6H PRN hypertensive 11/07/23 Unknown History emergency atorvastatin 10 mg tablet 10 mg PO DAILY #90 tabs 02/11/24 05/14/24 Rx carvedilol 25 mg tablet 50 mg (2 x 25 mg) PO BID #180 tabs 02/11/24 05/14/24 Rx cholecalciferol (vitamin D3) 62.5 See Rx Instructions PO .COMPLEX 02/11/24 Unknown Rx mcg (2,500 unit) capsule #90 caps handicap placard #1 ea 02/11/24 Unknown Rx levothyroxine 25 mcg tablet 25 mcg PO DAILY thryoid #90 tabs 02/11/24 05/14/24 Rx lisinopril 20 mg tablet 20 mg PO BID hypertension #180 tabs 02/11/24 05/14/24 Rx mirtazapine 7.5 mg tablet 7.5 mg PO QHS #90 tabs 02/11/24 05/14/24 Rx nifedipine 60 mg tablet,extended 60 mg PO BID BLOOD PRESSURE #180 02/11/24 05/14/24 Rx release tabs pantoprazole 40 mg tablet,delayed 40 mg PO BID #180 tabs 02/11/24 05/14/24 Rx release clonidine 0.1 mg/24 hr weekly 1 patch transdermal ROLON #12 ea 03/08/24 05/09/24 Rx transdermal patch acetaminophen 650 mg 650 mg PO Q8H PRN pain, mild 05/15/24 Unknown History tablet,extended release (8 Hour Pain Reliever) cetirizine 10 mg tablet (24Hour 10 mg PO DAILY PRN rash 05/15/24 Unknown History Allergy) cholecalciferol (vitamin D3) 125 62.5 mcg PO DAILY supplement 05/15/24 05/14/24 History mcg (5,000 unit) tablet gabapentin 100 mg capsule 100 mg PO TID PRN shingles 05/15/24 05/14/24 History hydralazine 100 mg tablet 100 mg PO Q8H PRN hypertension 05/15/24 Unknown History hydrocodone-acetaminophen 5-325mg 1 tab PO Q6H PRN PRN pain 05/15/24 Unknown History 5mg-325mg ondansetron 8 mg disintegrating 8 mg PO BID supplement 05/15/24 05/14/24 History tablet Allergy/AdvReac Type Severity Reaction Status Date / Time adalimumab (From Humira) Allergy Hives Verified 05/14/24 20:29 Family History Mother Heart disease Hypertension Osteoporosis Father CVA (cerebral vascular accident) Hypertension Surgical History History of surgery Hx of esophagogastroduodenoscopy H/O transurethral resection of bladder tumor (TURBT) Hx of colonoscopy S/P total knee arthroplasty S/P vein stripping S/P partial hysterectomy History of bladder surgery History of nephrectomy Social History household members: family Smoking Status: Never smoker alcohol intake: never substance use type: does not use Physical Exam Const alert and oriented x3 HEENT normocephalic Neck Neck Narrative: JVD + Resp Resp Narrative: Bibasal crackles Cardio Rate: regular rate Rhythm: regular rhythm Extremity no pedal edema Skin no rashes or lesions noted Psych mental status grossly normal Risk Stratification Risk Stratification Applicable: No Charges/Coding Visit Charges Inpatient E&M: 20856 Init Hosp L2 Objective Data Vital Signs: Vital Signs Temp Pulse Resp BP Pulse Ox O2 Del Method O2 Flow Rate 97.1 F L 69 14 140/65 H 100 Nasal Cannula 2 05/17/24 08:50 05/17/24 10:20 05/17/24 09:20 05/17/24 10:20 05/17/24 08:50 05/17/24 10:20 05/17/24 10:20 Oxygen Flow Rate (L/min) 2 Oxygen Delivery Method Nasal Cannula Weight: 118 lb 13.266 oz Body Mass Index (BMI) 23.2 Intake & Output: Intake and Output for Last 24 Hours 05/15/24 05/16/24 05/17/24 23:59 23:59 23:59 Intake Total 1617 / 1737 560 / 560 100 / 100 Output Total 425 / 425 150 / 150 50 / 50 Balance 1192 / 1312 410 / 410 50 / 50 Lab / Micro Data 05/17/24 05:01 05/17/24 05:01 Labs: Laboratory Results - last 24 hr 05/15/24 06:37: Crossmatch See Detail 05/17/24 05:01: WBC 6.9, RBC 2.11 L, Hgb 6.4 L, Hct 20.5 L, MCV 97.2, MCH 30.3, MCHC 31.2 L, RDW Std Deviation 62.3 H, RDW Coeff of Wiliam 17.8 H, Plt Count 125 L, MPV 11.8, Immature Gran % (Auto) 0.700, Neut % (Auto) 69.7, Lymph % (Auto) 17.4 L, [place] % (Auto) 9.4, Eos % (Auto) 2.7, Baso % (Auto) 0.1, Absolute Neuts (auto) 4.8, Absolute Lymphs (auto) 1.20, Nucleated RBC % 0, Sodium 134 L, Potassium 5.8 H, Chloride 102, Carbon Dioxide 24.0, Anion Gap 8, BUN 49 H, Creatinine 5.74 H, Estim Creat Clear Calc 5.24, Est GFR (MDRD) Af Amer 9 L, Est GFR (MDRD) Non-Af 8 L, BUN/Creatinine Ratio 8.5 L, Glucose 98, Calcium 8.3 L Micro: Microbiology 05/16/24 07:35 Urine, Random Urine Culture - Preliminary Culture exhibits no growth. 05/15/24 01:23 Urine, Clean Catch Urine Culture - Final Culture exhibits no growth. 05/14/24 21:26 Blood Culture (Wb) - Arm Right Blood Culture - Preliminary No growth in 48 hours. 05/14/24 21:26 Blood Culture (Wb) - Right Hand Blood Culture - Preliminary No growth in 48 hours. Cardiology Labs/Tests 05/17/24 05:01: WBC 6.9, RBC 2.11 L, Hgb 6.4 L, Hct 20.5 L, MCV 97.2, MCH 30.3, MCHC 31.2 L, Plt Count 125 L, MPV 11.8, Immature Gran % (Auto) 0.700, Neut % (Auto) 69.7, Lymph % (Auto) 17.4 L, [place] % (Auto) 9.4, Eos % (Auto) 2.7, Baso % (Auto) 0.1, Absolute Neuts (auto) 4.8, Nucleated RBC % 0, Sodium 134 L, P otassium 5.8 H, Chloride 102, Carbon Dioxide 24.0, Anion Gap 8, BUN 49 H, C reatinine 5.74 H, Est GFR (MDRD) Af Amer 9 L, Est GFR (MDRD) Non-Af 8 L, B UN/Creatinine Ratio 8.5 L, Glucose 98, Calcium 8.3 L Rhythm: EKG: ECHO: Stress Test: Cardiac Cath: PCI: CT Surgery: Holter monitor: EPS: PPM: CXR: Chest CT Scan:
[2024-05-17] MEDS: Gabapentin 100 MG Capsule PO ×2 (11:23→23:48)
[2024-05-17] MEDS: Heparin 10,000 UNITS/10 ML Vial IV (12:04)
--- NOTE | 2024-05-17 12:04 | CON.PCM.GI_ITS ---
HPI Consult Data Date of Consult: 05/17/24 HPI Narrative Reason for Consultation: Anemia HPI Narrative: MONA ESTRELLA, is a 83 F with a history of admission here from September 04, 2023 to September 10, 2023 for treatment of hypertensive crisis and hyperkalemia with hypertensive encephalopathy after having only underwent ~2.5 hours of HD which was truncated due to abdominal pain who presents to [facility] ER complaining of shortness of breath and cough. Currently, her symptoms began yesterday after she underwent hemodialysis as scheduled but later in the evening her [id number] noted she was sitting in recliner eating food when she had to get up to go to the bathroom and became severely shortness of breath and almost passed out while she was walking. The family then attempted to give her Lasix but the medications they had on hand over 1 year ago and they were not sure if will be helpful or not so they activated EMS. Her family also reported that she has been increasingly weak and not moving around as much as she normally does. EMS report shows oxygen saturation of 77% on RA with supplemental oxygen then applied. In the ER she was noted to have a CXR positive for vascular congestion with a Left-sided effusion and a Right CVC in good position with CTA of the chest revealing no evidence of pulmonary emboli with findings consistent with pulmonary edema and moderate bilateral pleural effusions and compressive lower lobe atelectasis with incidentally noted thyroid nodules and nonemergent thyroid ultrasound recommended along with a a corresponding elevated BNP of 2,372.8 pg/mL present on admission consistent with suspected AE of chronic diastolic CHF I was consulted to see her due to her decreasing hemoglobin. Her hemoglobin today dropped down to 6.4. It typically ranges between 9 and 10. [facility] Medical History (Updated 05/17/24 @ 11:[address] Kenneth Szymanski MD) ESRD on dialysis Bladder cancer History of echocardiogram Wears glasses Post-menopausal Cancer Anxiety History of steroid therapy Walker as ambulation aid Low iron High cholesterol Injury of head and neck Syncope [place] Non-smoker Heart murmur Mitral regurgitation Hypothyroidism Vertigo Cardiomyopathy Sjogren syndrome with inflammatory arthritis Arthritis Hyperlipidemia Type 2 diabetes mellitus CKD (chronic kidney disease) stage 5, GFR less than 15 ml/min Bilateral lower extremity edema Macular degeneration Lumbar spinal stenosis Glaucoma Heart failure Osteoporosis Thyroid disease Gastric reflux Hypertension Hx of fracture of wrist Rheumatoid arthritis Kidney failure Cancer Anemia Home Medications ?Medication ?Instructions ?Recorded ?Last Taken ?Type latanoprost 0.005 % eye drops 1 drp EACH EYE QPM glaucoma 09/06/23 05/14/24 History clonidine HCl 0.1 mg tablet 0.1 mg PO Q6H PRN hypertensive 11/07/23 Unknown History emergency atorvastatin 10 mg tablet 10 mg PO DAILY #90 tabs 02/11/24 05/14/24 Rx carvedilol 25 mg tablet 50 mg (2 x 25 mg) PO BID #180 tabs 02/11/24 05/14/24 Rx cholecalciferol (vitamin D3) 62.5 See Rx Instructions PO .COMPLEX 02/11/24 Unknown Rx mcg (2,500 unit) capsule #90 caps handicap placard #1 ea 02/11/24 Unknown Rx levothyroxine 25 mcg tablet 25 mcg PO DAILY thryoid #90 tabs 02/11/24 05/14/24 Rx lisinopril 20 mg tablet 20 mg PO BID hypertension #180 tabs 02/11/24 05/14/24 Rx mirtazapine 7.5 mg tablet 7.5 mg PO QHS #90 tabs 02/11/24 05/14/24 Rx nifedipine 60 mg tablet,extended 60 mg PO BID BLOOD PRESSURE #180 02/11/24 05/14/24 Rx release tabs pantoprazole 40 mg tablet,delayed 40 mg PO BID #180 tabs 02/11/24 05/14/24 Rx release clonidine 0.1 mg/24 hr weekly 1 patch transdermal ROLON #12 ea 03/08/24 05/09/24 Rx transdermal patch acetaminophen 650 mg 650 mg PO Q8H PRN pain, mild 05/15/24 Unknown History tablet,extended release (8 Hour Pain Reliever) cetirizine 10 mg tablet (24Hour 10 mg PO DAILY PRN rash 05/15/24 Unknown History Allergy) cholecalciferol (vitamin D3) 125 62.5 mcg PO DAILY supplement 05/15/24 05/14/24 History mcg (5,000 unit) tablet gabapentin 100 mg capsule 100 mg PO TID PRN shingles 05/15/24 05/14/24 History hydralazine 100 mg tablet 100 mg PO Q8H PRN hypertension 05/15/24 Unknown History hydrocodone-acetaminophen 5-325mg 1 tab PO Q6H PRN PRN pain 05/15/24 Unknown History 5mg-325mg ondansetron 8 mg disintegrating 8 mg PO BID supplement 05/15/24 05/14/24 History tablet Allergy/AdvReac Type Severity Reaction Status Date / Time adalimumab (From Humira) Allergy Hives Verified 05/14/24 20:29 Family History Mother Heart disease Hypertension Osteoporosis Father CVA (cerebral vascular accident) Hypertension Surgical History History of surgery Hx of esophagogastroduodenoscopy H/O transurethral resection of bladder tumor (TURBT) Hx of colonoscopy S/P total knee arthroplasty S/P vein stripping S/P partial hysterectomy History of bladder surgery History of nephrectomy Social History household members: family Smoking Status: Never smoker alcohol intake: never substance use type: does not use ROS Constitutional Constitutional: Denies fatigue, fever(s), poor appetite, weight gain or weight loss Gastrointestinal Gastrointestinal: Denies belching, bloating, change in bowel habits, change in stool character, chewing difficulty, coffee ground emesis, constipation, cramping, diarrhea, dyspepsia, dysphagia, early satiety, excessive flatus, fecal incontinence, heartburn, hematemesis, hematochezia, hemorrhoids, loose stools, melena, nausea, odynophagia, rectal bleeding, tenesmus, vomiting or weight changes Physical Exam Const alert, oriented x3, no apparent distress and healthy appearing General Appearance: cooperative GI normal to inspection, nondistended, normoactive bowel sounds, soft to palpation, non-tender and non-distended Percussion: normal to percussion Rectal Exam: deferred Lab / Micro Data 05/18/24 06:25 05/18/24 06:25 Labs: Laboratory Results - last 24 hr 05/17/24 05:01: Phosphorus 6.7 H, Magnesium 2.0 05/17/24 12:56: Hgb 9.9 L, Hct 30.3 L 05/18/24 06:25: WBC 6.5, RBC 2.64 L, Hgb 7.8 L, Hct 24.6 L, MCV 93.2, MCH 29.5, MCHC 31.7 L, RDW Std Deviation 68.1 H, RDW Coeff of Wiliam 20.1 H, Plt Count 123 L, MPV 11.2, Immature Gran % (Auto) 0.900, Neut % (Auto) 63.1, Lymph % (Auto) 22.4, [place] % (Auto) 10.4 H, Eos % (Auto) 2.9, Baso % (Auto) 0.3, Absolute Neuts (auto) 4.1, Absolute Lymphs (auto) 1.45, Nucleated RBC % 0, Anisocytosis 1+, Sodium 140, Potassium 4.7, Chloride 108 H, Carbon Dioxide 24.0, Anion Gap 8, BUN 32 H, Creatinine 4.16 H, Estim Creat Clear Calc 7.23, Est GFR (MDRD) Af Amer 13 L, Est GFR (MDRD) Non-Af 11 L, BUN/Creatinine Ratio 7.7 L, Glucose 123 H, Calcium 8.9 Micro: Microbiology 05/16/24 07:35 Urine, Random Urine Culture - Final Culture exhibits no growth. 05/15/24 21:15 Stool Stool Occult Blood (DERICK) - Final Occult Blood Positive 05/15/24 01:23 Urine, Clean Catch Urine Culture - Final Culture exhibits no growth. 05/14/24 21:26 Blood Culture (Wb) - Arm Right Blood Culture - Preliminary No growth in 48 hours. 05/14/24 21:26 Blood Culture (Wb) - Right Hand Blood Culture - Preliminary No growth in 48 hours. Assessment & Plan Assessment/Plan (1) Hematuria: (2) Metastatic renal cell carcinoma: PLAN: Plan 83-year-old with history of metastatic renal cell carcinoma with bladder recurrence/hematuria and history of end-stage renal disease on hemodialysis who is having worsening anemia with history of thrombocytopenia. Acute on chronic blood loss anemia with aspirin and history of end-stage renal disease and also getting subcu heparin. Differential diagnosis does include angiodysplasia, gastric antral vascular ectasia, Mikael's erosions, peptic ulcer disease, mild absorption, urinary blood loss. Recommend upper endoscopy to evaluate upper GI tract. Patient and patient's family were explained alternatives, risk and benefits include not withstanding bleeding, infection, sepsis, perforation, need for more charge and . She have an ASA of 3. - Charges/Coding Visit Charges Inpatient E&M: 67014 Init Hosp L3
[2024-05-17 13:02] LABS: Hematocrit 30.3 % (37-47); Hemoglobin 9.9 g/dL (12.0-15.0)
[2024-05-17] MEDS: hydrALAZINE 50 MG Tablet 100 MG PO ×2 (13:02→20:04)
[2024-05-17] MEDS: NIFEdipine 60 MG Tablet PO ×2 (13:02→20:06)
[2024-05-17] MEDS: Lactulose 20 GM/30 ML UDC PO (13:03)
--- NOTE | 2024-05-17 14:13 | CASEMGMT ---
LIZETTE POON Assessment Face to Face with patient for initial transition planning/care coordination assessment. LIZETTE POON introduced self and role at [facility], pt voices understanding. Pt is A&Ox4 and is resting comfortably in the chair and is calm. Care providers, pharmacy, and demographics verified. Admitting dx: AE CHF LACE Strata: 3 PCP: Cathy Specialists: Yoav (Nephro - [place]), Janny ([facility]). [facility] is currently consulted Preferred Pharmacy: [facility] Insurance: [facility] A/B, [facility] Supplemental Prescription Benefit: Yes LNOK: Dr. Marni Durand (DIL), Jabier Durand (Son) Living Arrangements: Pt lives with her Son and DIL in a 2 story home with a basement and a stair lift to enter from the garage. Pt reports that the main level is a FFSU and denies concerns ADLs/IADLs: Pt requires assistance. Pt states that she is active with Caregivers through [employer] and that they come 4x/ week. Pt son and DIL provide help as able. Transportation: [place], Son, DIL. Denies concerns DME: Pt is currently requiring additional oxygen and may qualify for home oxygen use. A verbal list of local in-network DME companies were provided to the pt at this time. Pt prefers [employer]. Pt also has a FWW, stair lift, walk-in shower with chair and grab bars, BP machine, and medical alert system. HHC/SNF: Denies Skilled HH Hx. Hx @ [facility] HD: Pt states that she goes to [facility] in [place] q MWF @ 0630 and that [employer] provides transportation. Pt?s goal: Get Better Plan: TBD. Anticipate SNF vs HHC. Follow for oxygen needs. Pt refused PT yesterday (05/16). PT was held today d/t low Hgb. Current 6-Click score is 14. Follow cardio and nephro consults. Pt states that she is unsure of what she will need or want at the time of DC and states that it is too early to tell. Report given to [employer] CM. CM to follow. Constanza Lyon RN, CM
[2024-05-17 17:11] LABS: Phosphorus 6.7 mg/dL (2.5-4.9)
[2024-05-17] MEDS: Latanoprost 0.005% 1 Bottle 1 DRP EACH EYE (20:00)
[2024-05-17] MEDS: Atorvastatin Calcium 10 MG Tablet PO (20:05)
[2024-05-17] MEDS: Mirtazapine 15 MG Tablet 7.5 MG PO (20:06)
[2024-05-18] VITALS (20 sets, daily range): BP systolic 134–175; BP diastolic 47–87; PULSE 73–94; RESP 15–20; TEMP 36.8–37.3; O2SAT 98–100; BMI 22.4
[2024-05-18] MEDS: Levothyroxine 25 MCG TABLET PO (05:54)
[2024-05-18] MEDS: hydrALAZINE 50 MG Tablet 100 MG PO ×3 (05:54→22:36)
[2024-05-18] MEDS: Gabapentin 100 MG Capsule PO ×3 (05:59→22:38)
[2024-05-18 07:05] LABS: Absolute Lymphocyte Count 1.45 X10^3/uL (0.83-4.51); Absolute Neutrophil Count 4.1 X10^3/uL (2.0-7.7); Basophil# 0.02 X10^3/uL; Basophil% 0.3 % (0-1); Eosinophil# 0.19 X10^3/uL; Eosinophils% 2.9 % (0-5); Hematocrit 24.6 % (37-47); Hemoglobin 7.8 g/dL (12.0-15.0); Lymphocyte # 1.45 X10^3/ul (0.83-4.51); Lymphocyte % 22.4 % (19-41); Mean Corp Hgb Conc 31.7 g/dL (32-36); Mean Corpuscular Hgb 29.5 pg (27.0-32.0); Mean Corpuscular Volume 93.2 fL (81-99); Mean Platelet Vol. 11.2 fl (6.2-12.0); Monocyte# 0.67 X10^3/uL; Monocyte% 10.4 % (0-10); NRBC Flagged by Analyzer 0 % (0-5); Neutrophil # 4.07 X10^3/uL (2.7-7.7); Neutrophil % 63.1 % (47-70); POSITIVE MORPHOLOGY YES; Platelet Count 123 K/mm3 (150-450); RBC Distribution Width CV 20.1 % (11.6-14.6); RBC Distribution Width SD 68.1 fl (35.1-43.9); Red Blood Count 2.64 M/mm3 (4.2-5.4); White Blood Count 6.5 K/mm3 (4.4-11.0)
[2024-05-18 07:09] LABS: Differential Indicated SCAN CRITERIA MET
[2024-05-18 07:38] LABS: Anion Gap 8 (5-15); BUN 32 mg/dL (7-18); BUN/Creat Ratio 7.7 RATIO (10-20); Calcium,Total 8.9 mg/dL (8.5-10.1); Chloride 108 mmol/L (98-107); Creatinine, Serum 4.16 mg/dL (0.55-1.02); EST Glomerular Filtration Rate 11 mL/min (>60); Est Glom Filt Rate - Afr Amer 13 mL/min (>60); Estimated Creatinine Clearance 7.23 ml/min; Glucose 123 mg/dL (74-106); Potassium 4.7 mmol/L (3.5-5.1); Sodium Level 140 mmol/L (136-145)
[2024-05-18 08:40] LABS: Anisocytosis 1+
[2024-05-18] MEDS: Carvedilol 25 MG Tablet 50 MG PO ×2 (08:42→17:10)
[2024-05-18] MEDS: Bumetanide 1 MG/4 ML Vial 2 MG IV ×2 (08:42→17:10)
[2024-05-18] MEDS: NIFEdipine 60 MG Tablet PO (08:42)
[2024-05-18] MEDS: Pantoprazole Sodium 40 MG in 0.9% Normal Saline (100mL MB+) 100 ML 330 MG IV ×2 (09:00→22:36)
[2024-05-18] MEDS: 0.9% Saline Lock 10 ML Syringe IV ×2 (09:00→17:10)
--- NOTE | 2024-05-18 09:49 | VDLE_ITS ---
Reason For Study: Pain RIGHT LEFT GSV is normal. GSV is normal. CFV is compressible, spontaneous, phasic, CFV is compressible, spontaneous, phasic, competent and demonstrates normal competent, and demonstrates normal augmentation. augmentation. FV is compressible, spontaneous, phasic, FV is compressible, spontaneous, phasic, competent and demonstrates normal competent and demonstrates normal augmentation. augmentation. POP V is compressible, spontaneous, phasic, POP V is compressible, spontaneous, phasic, competent and demonstrates normal competent and demonstrates normal augmentation. augmentation. T/P Trunk is compressible. T/P Trunk is compressible. PTV is compressible. PTV is compressible. RT PerV is compressible. LT PerV is compressible. Procedure This is a venous duplex using B-mode, color flow and spectral Doppler. Exam performed portable in patient room. A preliminary report was called and/or faxed to LIZETTE Woodward. VL/Venous Duplex US - Neal Extrem Interpretation Summary Deep veins of the bilateral lower extremities are patent and compressible segme ntally. There is no evidence of bilateral lower extremity deep vein thrombosis. The bilateral great saphenous veins appear patent and compressible segmentally. Ordering Physician: Rafita Monzon Referring Physician: Jacky Morgan Performed By: Brittany Alexander RVT and Student
--- NOTE | 2024-05-18 10:36 | PCM.PN.REN ---
Subjective Subjective Resting in bed. On room air. No overnight events. Objective Data Objective Data Vital Signs: Vital Signs Temp Pulse Resp BP Pulse Ox O2 Del Method O2 Flow Rate 98.4 F 79 20 H 157/67 H 98 Room Air 1 05/18/24 08:37 05/18/24 08:37 05/18/24 08:37 05/18/24 08:37 05/18/24 09:38 05/18/24 09:38 05/18/24 08:32 Oxygen Flow Rate (L/min) 1 Oxygen Delivery Method Room Air Weight: 52 kg Body Mass Index (BMI) 22.4 Intake & Output: Intake and Output for Last 24 Hours 05/16/24 05/17/24 05/18/24 23:59 23:59 23:59 Intake Total 560 / 560 1221 / 1221 110 / 110 Output Total 150 / 150 3115 / 3115 2 / 2 Balance 410 / 410 -1894 / -1894 108 / 108 Lab / Micro Data 05/18/24 06:25 05/18/24 06:25 Labs: Laboratory Results - last 24 hr 05/15/24 06:37: Crossmatch See Detail 05/17/24 05:01: Phosphorus 6.7 H, Magnesium 2.0 05/17/24 12:56: Hgb 9.9 L, Hct 30.3 L 05/18/24 06:25: WBC 6.5, RBC 2.64 L, Hgb 7.8 L, Hct 24.6 L, MCV 93.2, MCH 29.5, MCHC 31.7 L, RDW Std Deviation 68.1 H, RDW Coeff of Wiliam 20.1 H, Plt Count 123 L, MPV 11.2, Immature Gran % (Auto) 0.900, Neut % (Auto) 63.1, Lymph % (Auto) 22.4, [place] % (Auto) 10.4 H, Eos % (Auto) 2.9, Baso % (Auto) 0.3, Absolute Neuts (auto) 4.1, Absolute Lymphs (auto) 1.45, Nucleated RBC % 0, Anisocytosis 1+, Sodium 140, Potassium 4.7, Chloride 108 H, Carbon Dioxide 24.0, Anion Gap 8, BUN 32 H, Creatinine 4.16 H, Estim Creat Clear Calc 7.23, Est GFR (MDRD) Af Amer 13 L, Est GFR (MDRD) Non-Af 11 L, BUN/Creatinine Ratio 7.7 L, Glucose 123 H, Calcium 8.9 Micro: Microbiology 05/16/24 07:35 Urine, Random Urine Culture - Final Culture exhibits no growth. 05/15/24 21:15 Stool Stool Occult Blood (DERICK) - Final Occult Blood Positive 05/15/24 01:23 Urine, Clean Catch Urine Culture - Final Culture exhibits no growth. 05/14/24 21:26 Blood Culture (Wb) - Arm Right Blood Culture - Preliminary No growth in 48 hours. 05/14/24 21:26 Blood Culture (Wb) - Right Hand Blood Culture - Preliminary No growth in 48 hours. 05/14/24 20:45 Mucosa - Nose SARS-CoV-2, Influenza & RSV (PCR) - Final Physical Exam Narrative Alert and oriented x 3, no acute distress S1, S2, RRR Diminished breath sounds, no rales or rhonchi abdomen soft, nontender No pitting edema Assessment & Plan Assessment/Plan (1) ESRD on dialysis: PLAN: Plan Assessment/Plan: The patient is a 83-year-old female with past history of ESRD, hypertension, HFrEF, renal cell cancer status post right radical nephrectomy with metastasis to the bladder status post transurethral resection of bladder tumor, anemia, thrombocytopenia, Sjogren's syndrome, and hypothyroidism. The patient is admitted for treatment of acute hypoxic respiratory failure attributed to decompensated heart failure. Nephrology is following for ESRD. ESRD. The patient dialyzes on MWF schedule at [facility] followed by Dr. Reyes No acute indication for BRICK OFF BEARER or ultrafiltration today. Patient tolerated around 3 L fluid removal with dialysis yesterday. Next hemodialysis/ultrafiltration will be tomorrow and will attempt fluid removal with dialysis as patient/blood pressure tolerates. Hemoglobin dropped 6.4 and patient received PRBC yesterday. GI consulted, patient to undergo EGD Blood pressures acceptable on carvedilol, lisinopril, Catapres, amlodipine and hydralazine
--- NOTE | 2024-05-18 11:50 | PRE.ANES_ITS ---
ASA Classification* ASA Classification ASA Classification: 3 Assessment & Plan Anesthesia* Anesthesia Assessment Anesthesia Assessment: Discussed sedation and/or anesthesia options, risks, benefits, and alternatives with patient/parents/legal guardian/POA. Questions invited. The patient/parents/legal guardian/POA seems to understand and agrees to proceed with anesthesia plan. Reviewed the physical assessment, medical history, allergy history and patient home medications list prior to surgery/procedure/anesthetic and documented any changes. Performed airway and anesthesia risk assessments. Anesthesia Type Anesthesia Type: MAC History Source History Obtained from:: Patient and Chart Anesthesia Focused Assessment* Temperature: 98.4 F Pulse Rate: 79 Blood Pressure: 157/67 Respiratory Rate: 20 Pulse Ox: 98 Oxygen Delivery Method: Room Air Oxygen Flow Rate (L/min): 1 Airway Assessment Mouth opens: >3 cm Mallampati Score: III Teeth Condition: Intact Neck Range of motion (ROM): Limited ROM (Somewhat decreased extension) Focused Labs Anesthesia Preop lab: CBC WBC 6.5 K/mm3 (4.4-11.0) 05/18/24 06:25 RBC 2.64 M/mm3 (4.2-5.4) L 05/18/24 06:25 Hgb 7.8 g/dL (12.0-15.0) L 05/18/24 06:25 Hct 24.6 % (37-47) L 05/18/24 06:25 Plt Count 123 K/mm3 (150-450) L 05/18/24 06:25 CHEMISTRY Potassium 4.7 mmol/L (3.5-5.1) 05/18/24 06:25 Sodium 140 mmol/L (136-145) 05/18/24 06:25 Magnesium 2.0 mg/dL (1.6-2.6) 05/17/24 05:01 Phosphorus 6.7 mg/dL (2.5-4.9) H 05/17/24 05:01 BUN 32 mg/dL (7-18) H 05/18/24 06:25 Creatinine 4.16 mg/dL (0.55-1.02) H 05/18/24 06:25 Glucose 123 mg/dL (74-106) H 05/18/24 06:25 POC Glucose 285 mg/dL (74-106) H 09/10/23 11:12 TSH 1.920 uIU/mL (0.358-3.740) 05/15/24 03:25 COAG PT 15.0 SECONDS (11.7-14.9) H 05/14/24 20:45 Pre-Assessment Diagnosis/Proposed Procedure Planned Operative Procedure(s): Esophagogastroduodenoscopy. 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 When Was Last Pacemaker Check QUESTION #4 FULL TEXT: You/Your Family Experience fever (hyperthermia) with Anesthesia Last Oral Intake Last Oral intake: Last Oral Intake NPO since 07:00 05/18/24 09:12 Meds taken in AM with sips of Yes 05/18/24 09:12 water? 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 Has anyone observed you stop No 05/15/24 05:51 breathing during sleep? STOP Results Negative 05/15/24 05:51 QUESTION #5 FULL TEXT : Do you snore loudly (louder than talking or can be heard through closed doors)? 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 Specify any problems Hx of Preganancy in last 3 N/A 05/15/24 05:51 Months Nurse Filling Out Transfusion ASWAIN 05/15/24 05:51 & Questions: Date: 05/15/24 05/15/24 05:51 Time: 05:53 05/15/24 05:51 Patient unable to answer at this time (ie. 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 81 Mg Tablet PO Not Given BREAKFAST [facility] Atorvastatin Calcium 10 mg 05/15/24 22:00 05/17/24 20:05 Atorvastatin Calcium 10 Mg Tablet PO 10 mg 2200 [facility] Administration Bisacodyl 10 mg 05/17/24 10:00 05/18/24 08:42 Bisacodyl 10 Mg Suppository RC Not Given DAILY [facility] Bumetanide 2 mg 05/15/24 10:00 05/18/24 08:42 Bumetanide 1 Mg/4 Ml Vial IV 2 mg BIDLX [facility]ARD Administration Protocol Carvedilol 50 mg 05/15/24 08:00 05/18/24 08:42 Carvedilol 25 Mg Tablet PO 50 mg BIDCM [facility] Administration Protocol Cholecalciferol 50 mcg 05/15/24 10:00 05/18/24 11:23 Cholecalciferol (Vit D3) 25 Mcg Tablet (1,000 Units) PO Not Given DAILY [facility] Clonidine 0.1 mg 05/15/24 05:49 Clonidine Hcl 0.1 Mg Tablet PO Q6H PRN PRN hypertensive emergency Protocol Clonidine HCl 0.1 mg 05/16/24 10:00 05/16/24 09:55 Clonidine Hcl 0.1 Mg Patch TD 0.1 mg Gamble@1000 [facility] Administration Enoxaparin Sodium 30 mg 05/16/24 10:00 05/17/24 11:59 Enoxaparin 30 Mg/0.3 Ml Syringe SC Not Given DAILY [facility] Gabapentin 100 mg 05/15/24 06:00 05/18/24 05:59 Gabapentin 100 Mg Capsule PO 100 mg TID [facility] Administration Hydralazine HCl 10 mg 05/15/24 07:39 Hydralazine 20 Mg/Ml Vial IV Q4H PRN PRN SBP GREATER THAN 180 Protocol Hydralazine HCl 100 mg 05/15/24 14:00 05/18/24 05:54 Hydralazine 50 Mg Tablet PO 100 mg Q8 [facility] Administration Pantoprazole Sodium 40 mg/ 110 mls @ 330 mls/hr 05/18/24 10:00 05/18/24 09:25 Sodium Chloride IV Infused Q12 [facility] Infusion Lactulose 20 gm 05/17/24 16:47 Lactulose 20 Gm/30 Ml Udc PO TID PRN constipation Latanoprost 1 drp 05/15/24 21:00 05/17/24 20:00 Latanoprost 0.005% 1 Bottle EACH EYE 1 drp QPM [facility] Administration Levothyroxine Sodium 25 mcg 05/15/24 06:00 05/18/24 05:54 Levothyroxine 25 Mcg Tablet PO 25 mcg 0600 [facility] Administration Lisinopril 20 mg 05/15/24 10:00 05/16/24 08:21 Lisinopril 20 Mg Tablet PO 20 mg BID [facility] Administration Protocol Loratadine 10 mg 05/15/24 09:14 Loratadine 10 Mg Tablet PO DAILY PRN rash Mirtazapine 7.5 mg 05/15/24 22:00 05/17/24 20:06 Mirtazapine 15 Mg Tablet PO 7.5 mg QHS [facility] Administration Ondansetron HCl 8 mg 05/15/24 10:00 05/18/24 08:39 Ondansetron 8 Mg Tablet PO Not Given BID [facility] Senna/Docusate Sodium 2 tablet 05/16/24 13:00 05/18/24 11:23 Senna/Docusate Sodium 1 Tablet PO Not Given BID [facility] Sodium Chloride 10 - 40 ml 05/15/24 06:08 05/18/24 09:00 0.9% Saline Lock 10 Ml Syringe IV 40 ml UD PRN Administration SALINE FLUSH PFSH Medical History (Updated 05/17/24 @ 11:[address] Kenneth Szymanski MD) ESRD on dialysis Bladder cancer History of echocardiogram Wears glasses Post-menopausal Cancer Anxiety History of steroid therapy Walker as ambulation aid Low iron High cholesterol Injury of head and neck Syncope Falls Non-smoker Heart murmur Mitral regurgitation Hypothyroidism Vertigo Cardiomyopathy Sjogren syndrome with inflammatory arthritis Arthritis Hyperlipidemia Type 2 diabetes mellitus CKD (chronic kidney disease) stage 5, GFR less than 15 ml/min Bilateral lower extremity edema Macular degeneration Lumbar spinal stenosis Glaucoma Heart failure Osteoporosis Thyroid disease Gastric reflux Hypertension Hx of fracture of wrist Rheumatoid arthritis Kidney failure Cancer Anemia Home Medications ?Medication ?Instructions ?Recorded ?Last Taken ?Type latanoprost 0.005 % eye drops 1 drp EACH EYE QPM glaucoma 09/06/23 05/14/24 History clonidine HCl 0.1 mg tablet 0.1 mg PO Q6H PRN hypertensive 11/07/23 Unknown History emergency atorvastatin 10 mg tablet 10 mg PO DAILY #90 tabs 02/11/24 05/14/24 Rx carvedilol 25 mg tablet 50 mg (2 x 25 mg) PO BID #180 tabs 02/11/24 05/14/24 Rx cholecalciferol (vitamin D3) 62.5 See Rx Instructions PO .COMPLEX 02/11/24 Unknown Rx mcg (2,500 unit) capsule #90 caps handicap placard #1 ea 02/11/24 Unknown Rx levothyroxine 25 mcg tablet 25 mcg PO DAILY thryoid #90 tabs 02/11/24 05/14/24 Rx lisinopril 20 mg tablet 20 mg PO BID hypertension #180 tabs 02/11/24 05/14/24 Rx mirtazapine 7.5 mg tablet 7.5 mg PO QHS #90 tabs 02/11/24 05/14/24 Rx nifedipine 60 mg tablet,extended 60 mg PO BID BLOOD PRESSURE #180 02/11/24 05/14/24 Rx release tabs pantoprazole 40 mg tablet,delayed 40 mg PO BID #180 tabs 02/11/24 05/14/24 Rx release clonidine 0.1 mg/24 hr weekly 1 patch transdermal GAMBLE #12 ea 03/08/24 05/09/24 Rx transdermal patch acetaminophen 650 mg 650 mg PO Q8H PRN pain, mild 05/15/24 Unknown History tablet,extended release (8 Hour Pain Reliever) cetirizine 10 mg tablet (24Hour 10 mg PO DAILY PRN rash 05/15/24 Unknown History Allergy) cholecalciferol (vitamin D3) 125 62.5 mcg PO DAILY supplement 05/15/24 05/14/24 History mcg (5,000 unit) tablet gabapentin 100 mg capsule 100 mg PO TID PRN shingles 05/15/24 05/14/24 History hydralazine 100 mg tablet 100 mg PO Q8H PRN hypertension 05/15/24 Unknown History hydrocodone-acetaminophen 5-325mg 1 tab PO Q6H PRN PRN pain 05/15/24 Unknown History 5mg-325mg ondansetron 8 mg disintegrating 8 mg PO BID supplement 05/15/24 05/14/24 History tablet Allergy/AdvReac Type Severity Reaction Status Date / Time adalimumab (From Humira) Allergy Hives Verified 05/14/24 20:29 Family History Mother Heart disease Hypertension Osteoporosis Father CVA (cerebral vascular accident) Hypertension Surgical History History of surgery Hx of esophagogastroduodenoscopy H/O transurethral resection of bladder tumor (TURBT) Hx of colonoscopy S/P total knee arthroplasty S/P vein stripping S/P partial hysterectomy History of bladder surgery History of nephrectomy Social History household members: family Smoking Status: Never smoker alcohol intake: never substance use type: does not use Review of Systems (Anesthesia) ROS Narrative System reviewed and no additional complaints, except as documented.
--- NOTE | 2024-05-18 12:00 | IMM_PTH ---
PATIENT: MONA ESTRELLA LOC: U U#:[id number] AGE/SX: 83/F ROOM: [facility] RE05/15/[address]: Dr. Rafita Monzon MD : 1940 BED: 1 DIS: 05/19/2024 SPEC #: [id number] RECD: 05/19/24 09:44 STATUS: ANOOP REQ #: [id number] ISSAC: 05/18/24 12:[address]: David Mike DEPT: IMMUNOHISTOCHEMISTRY RECD BY: Junior Singh ENTERED: 05/19/24 09:45 SP TYPE: IMMUNO OTHR DR: DO Dr. Jacky Turk MD Dr. Nagapradee Nagajothi, MD Dr. Natthavat Tanphaichitr, MD Dr. Prakash Chand, MD Tissues: Gastric mucous membrane Procedures: H Pylori (initial) KI-67 (add) P53 (add) PHYSICIAN & [address] [address] SPECIMEN INFORMATION: Tissue Source: Gastric ulcer biopsy Clinical Info: [place] Specimen Number: [id number] CPT code: 77410,21783h1 METHODOLOGY: Deparaffinized sections of prefer/formalin-fixed tissue or PAP/DQ stained slides are incubated with monoclonal/polyclonal antibodies/oligonucleotide probes. Localization is made via biotin free immunoperoxidase method. Appropriate controls are performed and reacted as expected. Results on target cell population are indicated in the following table: RESULTS: ANTIBODY / CLONE RESULT H Pylori (polyclonal) negative P53 (DO-7) positive, focal (wild type pattern) Ki-67 (30-9) positive, low These tests were developed and their performance characteristics determined by [facility]. They may not have been cleared or approved by the U.S. Food and Drug Administration. The FDA has determined that such clearance or approval is not necessary. The above immunohistochemical/dualISH markers are ordered and reviewed by the Pathologist. INTERPRETATION: Gastric ulcer, biopsy: Negative for Helicobacter pylori organisms. Negative for dysplasia. 05/21/2024
--- NOTE | 2024-05-18 12:00 | EGD_PTH ---
PATIENT: MONA ESTRELLA LOC: U U#:[id number] AGE/SX: 83/F ROOM: [facility] RE05/15/[address]: Dr. Rafita Monzon MD : 1940 BED: 1 DIS: 05/19/2024 SPEC #: [id number] RECD: 05/18/24 15:12 STATUS: ANOOP RERachel #: [id number] ISSAC: 05/18/24 12:[address]: Rafita Monzon DEPT: SURGICAL PATHOLOGY RECD BY: Caron Lucio ENTERED: 05/19/24 08:45 SP TYPE: EGD BIOPSY OTHR DR: DO Dr. Jacky Turk MD Dr. Nagapradee Nagajothi, MD Dr. Natthavat Tanphaichitr, MD Tissues: Gastric mucous membrane Procedures: Special Stain Group I Surgery Specimen Level IV Alcian Blue/PAS (control) HEADER OPERATION: EGD with biopsy and electrohemostasis PRE-OP DIAGNOSIS: Anemia TISSUE SUBMITTED: Gastric ulcer biopsy MICROSCOPIC DIAGNOSIS Gastric ulcer, biopsy: Chronic gastritis. Focal intestinal metaplasia (goblet cell metaplasia). Negative for dysplasia. See microscopic description and comment. mr 05/20/2024 COMMENT Alcian blue/PAS stain with matched control is used in the evaluation of the specimen.The results of immunohistochemistry for Helicobacter pylori will be reported separately ([id number]). Immunohistochemistry ([id number]) for P53 and Ki-67 will be performed, and results will be reported separately. Please also make reference to previous specimen [id number] gastric ulcer, biopsy with diagnosis of mild gastritis and focal intestinal metaplasia (goblet cell metaplasia). MICROSCOPIC DESCRIPTION Slides are reviewed. GROSS DESCRIPTION Received in fixative is one container labeled with the patient's name and designated Gastric ulcer biopsy. The specimen consists of multiple irregular fragments of light montes soft tissue that in aggregate measure 1.1 x 0.3 x 0.2 cm. The specimen is totally submitted in one cassette. .mr 05/19/2024 TC:3 CPT:75602,11702
--- NOTE | 2024-05-18 12:10 | PN.GI_ITS ---
Subjective Subjective Patient without any problems overnight she received transfusion 1 unit of packed red blood cells overnight. Objective Data Objective Data Vital Signs: Vital Signs Temp Pulse Resp BP Pulse Ox O2 Del Method O2 Flow Rate 98.4 F 79 20 H 157/67 H 98 Room Air 1 05/18/24 11:54 05/18/24 11:54 05/18/24 11:54 05/18/24 11:54 05/18/24 11:54 05/18/24 11:56 05/18/24 11:54 Oxygen Flow Rate (L/min) 1 Oxygen Delivery Method Room Air Weight: 114 lb 10.246 oz Body Mass Index (BMI) 22.4 Intake & Output: Intake and Output for Last 24 Hours 05/16/24 05/17/24 05/18/24 23:59 23:59 23:59 Intake Total 560 / 560 1221 / 1221 110 / 110 Output Total 150 / 150 3115 / 3115 2 / 2 Balance 410 / 410 -1894 / -1894 108 / 108 Lab / Micro Data 05/18/24 06:25 05/18/24 06:25 Labs: Laboratory Results - last 24 hr 05/17/24 05:01: Phosphorus 6.7 H, Magnesium 2.0 05/17/24 12:56: Hgb 9.9 L, Hct 30.3 L 05/18/24 06:25: WBC 6.5, RBC 2.64 L, Hgb 7.8 L, Hct 24.6 L, MCV 93.2, MCH 29.5, MCHC 31.7 L, RDW Std Deviation 68.1 H, RDW Coeff of Wiliam 20.1 H, Plt Count 123 L, MPV 11.2, Immature Gran % (Auto) 0.900, Neut % (Auto) 63.1, Lymph % (Auto) 22.4, [place] % (Auto) 10.4 H, Eos % (Auto) 2.9, Baso % (Auto) 0.3, Absolute Neuts (auto) 4.1, Absolute Lymphs (auto) 1.45, Nucleated RBC % 0, Anisocytosis 1+, Sodium 140, Potassium 4.7, Chloride 108 H, Carbon Dioxide 24.0, Anion Gap 8, BUN 32 H, Creatinine 4.16 H, Estim Creat Clear Calc 7.23, Est GFR (MDRD) Af Amer 13 L, Est GFR (MDRD) Non-Af 11 L, BUN/Creatinine Ratio 7.7 L, Glucose 123 H, Calcium 8.9 Micro: Microbiology 05/16/24 07:35 Urine, Random Urine Culture - Final Culture exhibits no growth. 05/15/24 21:15 Stool Stool Occult Blood (DERICK) - Final Occult Blood Positive 05/15/24 01:23 Urine, Clean Catch Urine Culture - Final Culture exhibits no growth. 05/14/24 21:26 Blood Culture (Wb) - Arm Right Blood Culture - Preliminary No growth in 48 hours. 05/14/24 21:26 Blood Culture (Wb) - Right Hand Blood Culture - Preliminary No growth in 48 hours. 05/14/24 20:45 Mucosa - Nose SARS-CoV-2, Influenza & RSV (PCR) - Final Physical Exam Const alert, oriented x3, no apparent distress and healthy appearing General Appearance: cooperative GI normal to inspection, nondistended, normoactive bowel sounds, soft to palpation, non-tender and non-distended Percussion: normal to percussion Rectal Exam: deferred Assessment & Plan Assessment/Plan (1) Hematuria: (2) Metastatic renal cell carcinoma: PLAN: Plan 83-year-old with history of metastatic renal cell carcinoma with bladder recurrence/hematuria and history of end-stage renal disease on hemodialysis who is having worsening anemia with history of thrombocytopenia. Acute on chronic blood loss anemia with aspirin and history of end-stage renal disease and also getting subcu heparin. Differential diagnosis does include angiodysplasia, gastric antral vascular ectasia, Mikael's erosions, peptic ulcer disease, mild absorption, urinary blood loss. Recommend upper endoscopy to evaluate upper GI tract. Patient and patient's family were explained alternatives, risk and benefits include not withstanding bleeding, infection, sepsis, perforation, need for more charge and . She have an ASA of 3. - Charges/Coding Visit Charges Inpatient E&M: 78875 Subs Hosp L3
--- NOTE | 2024-05-18 12:34 | PCM.POST.ANE ---
Anesthesia: Postop Eval I Current Vital Signs Temperature: 98.4 F Pulse Rate: 80 Blood Pressure: 174/74 Respiratory Rate: 16 Pulse Ox: 100 Oxygen Delivery Method: Room Air Assessment Airway patent: Yes Spontaneous unlabored respirations: Yes Mental status: Asleep nausea: No Vomiting: No Anesthesia Complication: No Fluid Hydration Crystalloid volume administer (ml): 30 Total IV fluid infused: 30 Progress Note Anesthesia document: Postop Eval 1 completed: Yes
--- NOTE | 2024-05-18 12:52 | OP.EGD_ITS ---
Patient Name: Lavinia Durand Procedure Date: 05/18/2024 12:10 PM Date of : 1940 Age: 83 Procedure: Upper GI endoscopy Indications: Epigastric abdominal pain, Iron deficiency anemia, Dyspepsia, Indigestion Providers: David Mike DO Medicines: Monitored Anesthesia Care Patient Profile: This is an 83 year old female. Refer to note in patient chart for documentation of history and physical. Patient has symptoms of chronic epigastric abdominal pain. Complications: No immediate complications. Procedure: Pre-Anesthesia Assessment: - Prior to the procedure, a History and Physical was performed, and patient medications and allergies were reviewed. The patient is competent. The risks and benefits of the procedure and the sedation options and risks were discussed with the patient. All questions were answered and informed consent was obtained. Patient identification and proposed procedure were verified by the physician in the pre-procedure area. Mental Status Examination: alert and oriented. Airway Examination: normal oropharyngeal airway and neck mobility. Respiratory Examination: clear to auscultation. CV Examination: normal. Prophylactic Antibiotics: The patient does not require prophylactic antibiotics. Prior Anticoagulants: The patient has taken no anticoagulant or antiplatelet agents except for NSAID medication. ASA Grade Assessment: III - A patient with severe systemic disease. After reviewing the risks and benefits, the patient was deemed in satisfactory condition to undergo the procedure. The anesthesia plan was to use monitored anesthesia care (MAC). Immediately prior to administration of medications, the patient was re-assessed for adequacy to receive sedatives. The heart rate, respiratory rate, oxygen saturations, blood pressure, adequacy of pulmonary ventilation, and response to care were monitored throughout the procedure. The physical status of the patient was re-assessed after the procedure. After obtaining informed consent, the endoscope was passed under direct vision. Throughout the procedure, the patient's blood pressure, pulse, and oxygen saturations were monitored continuously. The Endoscope was introduced through the mouth, and advanced to the second part of duodenum. The upper GI endoscopy was accomplished without difficulty. The patient tolerated the procedure well. Scope In: 12:14:36 PM Scope Out: 12:24:13 PM Total Procedure Duration Time 0 hours 9 minutes 37 seconds Findings: The examined esophagus was normal. One oozing linear gastric ulcer with a visible vessel was found in the gastric antrum. The lesion was 10 mm in largest dimension. Coagulation for hemostasis using heater probe was successful. Estimated blood loss was minimal. Localized mild inflammation characterized by erosions and erythema was found in the gastric body. Biopsies were taken with a cold forceps for histology. Verification of patient identification for the specimen was done. Biopsies were taken with a cold forceps for Helicobacter pylori testing. Verification of patient identification for the specimen was done. Diffuse moderate mucosal variance characterized by discoloration was found in the entire duodenum. Impression: - Normal esophagus. - Oozing gastric ulcer with a visible vessel. Treated with a heater probe. - Chronic gastritis. Biopsied. - Mucosal variant in the duodenum. Recommendation: - Await pathology results. - Use Protonix (pantoprazole) 40 mg PO BID. -If patient continues to have pain then we can introduce liquid Carafate 1 g twice a day for 8 weeks. - Continue present medications. Procedure Code(s): --- Professional --- 99038, 59, Esophagogastroduodenoscopy, flexible, transoral; with control of bleeding, any method 27422, 51, Esophagogastroduodenoscopy, flexible, transoral; with biopsy, single or multiple CPT copyright 2021 [employer] [place] [employer]. All rights reserved. The codes documented in this report are preliminary and upon rotary machine operator review may be revised to meet current compliance requirements. David Mike DO 05/18/2024 12:52:01 PM This report has been signed electronically. Number of Addenda: 0 Note Initiated On: 05/18/2024 12:10 PM
--- NOTE | 2024-05-18 12:52 | OP.CCLET_ITS ---
05/18/2024 Jacky Morgan MD [address] [place] [address] [place] [address] Re : Upper GI endoscopy procedure for Lavinia Durand Dear Dr. Morgan This procedure was performed on Saturday, May 18, 2024. My impressions and recommendations are as follows: Impressions : - Normal esophagus. - Oozing gastric ulcer with a visible vessel. Treated with a heater probe. - Chronic gastritis. Biopsied. - Mucosal variant in the duodenum. Recommendations : - Await pathology results. - Use Protonix (pantoprazole) 40 mg PO BID. -If patient continues to have pain then we can introduce liquid Carafate 1 g twice a day for 8 weeks. - Continue present medications. My findings are described in the full procedure note, which is enclosed. If I can be of further assistance, please feel free to contact me at . Sincerely, David Friend, 05/18/2024 12:52:01 PM This report has been signed electronically.
[2024-05-18] MEDS: amLODIPine 10 MG Tablet PO (13:32)
--- NOTE | 2024-05-18 15:25 | PCM.PN.HOSP ---
Reason for Visit Reason for Visit: Diagnoses Malignant neoplasm of unspecified kidney, except renal pelvis (05/15/24) Anemia, unspecified (05/15/24) Acidosis, unspecified (05/15/24) Essential (primary) hypertension (05/15/24) Acute on chronic diastolic (congestive) heart failure (05/15/24) Acute on chronic combined systolic (congestive) and diastolic (congestive) heart failure (05/15/24) Heart disease, unspecified (05/15/24) Pleural effusion, not elsewhere classified (05/15/24) End stage renal disease (05/15/24) Other abnormalities of breathing (05/15/24) Hematuria, unspecified (05/15/24) Other specified abnormal findings of blood chemistry (05/15/24) Dependence on renal dialysis (05/15/24) Objective Data Objective Data Vital Signs: Vital Signs Temp Pulse Resp BP Pulse Ox O2 Del Method O2 Flow Rate 98.3 F 86 18 163/87 H 98 Room Air 1 05/18/24 13:17 05/18/24 15:19 05/18/24 15:19 05/18/24 15:19 05/18/24 15:19 05/18/24 15:19 05/18/24 11:54 Oxygen Flow Rate (L/min) 1 Oxygen Delivery Method Room Air Weight: 114 lb 10.246 oz Body Mass Index (BMI) 22.4 Intake & Output: Intake and Output for Last 24 Hours 05/16/24 05/17/24 05/18/24 23:59 23:59 23:59 Intake Total 560 / 560 1221 / 1221 170 / 170 Output Total 150 / 150 3115 / 3115 2 / 2 Balance 410 / 410 -1894 / -1894 168 / 168 Lab / Micro Data 05/18/24 06:25 05/18/24 06:25 Labs: Laboratory Results - last 24 hr 05/17/24 05:01: Phosphorus 6.7 H, Magnesium 2.0 05/18/24 06:25: WBC 6.5, RBC 2.64 L, Hgb 7.8 L, Hct 24.6 L, MCV 93.2, MCH 29.5, MCHC 31.7 L, RDW Std Deviation 68.1 H, RDW Coeff of Wiliam 20.1 H, Plt Count 123 L, MPV 11.2, Immature Gran % (Auto) 0.900, Neut % (Auto) 63.1, Lymph % (Auto) 22.4, Hardeman % (Auto) 10.4 H, Eos % (Auto) 2.9, Baso % (Auto) 0.3, Absolute Neuts (auto) 4.1, Absolute Lymphs (auto) 1.45, Nucleated RBC % 0, Anisocytosis 1+, Sodium 140, Potassium 4.7, Chloride 108 H, Carbon Dioxide 24.0, Anion Gap 8, BUN 32 H, Creatinine 4.16 H, Estim Creat Clear Calc 7.23, Est GFR (MDRD) Af Amer 13 L, Est GFR (MDRD) Non-Af 11 L, BUN/Creatinine Ratio 7.7 L, Glucose 123 H, Calcium 8.9 Micro: Microbiology 05/16/24 07:35 Urine, Random Urine Culture - Final Culture exhibits no growth. 05/15/24 21:15 Stool Stool Occult Blood (DERICK) - Final Occult Blood Positive 05/15/24 01:23 Urine, Clean Catch Urine Culture - Final Culture exhibits no growth. 05/14/24 21:26 Blood Culture (Wb) - Arm Right Blood Culture - Preliminary No growth in 48 hours. 05/14/24 21:26 Blood Culture (Wb) - Right Hand Blood Culture - Preliminary No growth in 48 hours. 05/14/24 20:45 Mucosa - Nose SARS-CoV-2, Influenza & RSV (PCR) - Final Physical Exam Narrative Seen and examined Patient complain of pain over right leg felt like muscle spasm. Denies any history of DVT/PE in the past. Patient not having much ambulation or physical therapy. Out of bed to chair. Patient had bowel movement on 05/17. Patient was admitted with shortness of breath. She has dyspnea on exertion gets short of breath on minimal to mild exertion even on conversation. Denies chest pain or pressure or tightness Physical exam General: Alert, Oriented x3, Cooperative, fatigue/frail. HEENT: Atraumatic, PERRLA, EOMI, Normocephalic Oral: Oral mucosa dry no Gingival or Mucosal Lesions/ Ulcerations Neck: Supple, No JVD, Negative Carotid Bruits Chest wall/Lungs: Air entry diminished in bilateral lung bases, bilateral small/moderate effusion. No crepitation/rhonchi Cardiovascular: Regular rate, Regular Rhythm, Normal S1, Normal S2, systolic murmur Abdomen: Bowel Sounds Present, Soft, Non Tender, Non-Distended : On HD no dysuria. No renal angle tenderness. No suprapubic tenderness. Extremities: No edema, Capillary Refill Less than 3 Seconds Skin: No rashes, No breakdown Musculoskeletal: No Tenderness to Palpation of Joints or Extremities. ROM decreased. Mild decreased muscle bulk of lower extremities, muscle strength 4/5 at knees and hip joints. Neurological: Cranial nerves II-XII grossly intact, DTR 2+/4. No acute focal neurological deficit. 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 Assessment & Plan Assessment/Plan (1) Acute on chronic diastolic CHF (congestive heart failure): (2) Pleural effusion: (3) Elevated troponin: (4) Anemia: QUALIFIERS: Anemia type: unspecified type Qualified Code(s): D64.9 - Anemia, unspecified PLAN: Plan 83-year-old female was admitted with a chief complaint of shortness of breath, hypoxia SpO2 77% on room air by EMS. After supper, she stood up in order to go to bathroom felt short of breath and almost passed out and had difficulty in breathing. 1. AE of chronic diastolic CHF; with preserved LVEF and bilateral pleural effusion and pulmonary hypertension: Patient is being admitted in PCU. Chest x-ray and CTA chest reviewed. No PE. Moderate bilateral pleural effusion and pulmonary edema. BNP elevated. Heart failure core measures including intake and output, fluid restriction less than 1500 mL, daily weight monitoring, kidney and electrolytes monitoring. Bumex increased to 1 mg IV twice daily. Incentive spirometry and Pep. Discussed with the manager information and patient does not need dialysis today and most likely not tomorrow. Lactic acid 2.4, repeat 1 was normal, 1.1. Probably due to decreased peripheral perfusion 05/16: No shortness of breath. Respiratory status is better. Pulse ox 100% on 2 L of oxygen, wean down the oxygen. Heart rate and blood pressure are controlled. 05/17: I talked to the patient's [id number], Dr. Durand and she wanted radio station operator consult for optimization of medicine. Brand Marketing Intern Dr. Szymanski consulted as per the patient's request. BP is 140/65 heart rate 69/min. I feel patient already on maximal tolerated medicine. 1/21: With recommendation of Dr. Szymanski, Procardia changed to amlodipine 10 mg daily. Recommended limited echo in 6 to 8 weeks for wall motion abnormality. Follow-up in cardiology office. Complain of right leg pain with muscle spasm. On Tylenol 1 g Q8 hourly. Venous duplex ordered 2. Mildly elevated troponin probably due to acute cardiac strain/pulmonary edema: Patient does not have chest pain pressure or tightness. Troponins 171, 418, 814. 2D echo was done and echo findings discussed with the radio station operator Dr. Dang. EF 40%, stage II diastolic dysfunction, mild to moderate concentric LVH, severe anterior apical and mid to distal septal hypokinesis to akinesis. Mild MR, mild TR RVSP 61 mm this is to moderate pulmonary hypertension. Moderate size left pleural effusion. She is on carvedilol 50 mg twice daily, home dose, hydralazine, lisinopril and Procardia XL. She is on maximal medical therapy. Lipid profile shows TG 130, LDL 69. HDL 54. Brand Marketing Intern opinion was to follow-up radio station operator as an outpatient. 05/16: Patient used to follow some [place] radio station operator, last visited 2 years ago. She is eager to follow [place] [facility], names given. 3. ESRD; on HD (--) with anemia of chronic disease/CKD: Patient was evaluated by manager information. She does not need dialysis today is more probably not tomorrow. She was accepted by [facility] for dialysis as we did not have dialysis nurse on this weekend but she does not need diuresis therefore transfer was canceled. This was done as per manager information recommendation. 05/16: Discussed with the manager information today. Plan is dialysis tomorrow morning 05/17: Patient is getting hemodialysis 4. Chronic severe anemia: H&H chronically low stays between 7 to to 9 g. Monitor CBC daily. If it drops less than 7 g will need PRBC transfusion. 05/16: Even after transfusion of 1 PRBC yesterday her hemoglobin is still low 7.3 did not change. 05/17: Her hemoglobin dropped to 6.4 g%. 1 unit of PRBC ordered bleeding hemodialysis. 05/18: Urine culture shows no growth. Blood culture negative for 48 hours. Hemoglobin 7.8. Platelet count 100 23K, baseline thrombocytopenia. Platelet count was about 150K in December or January 2024. Stool for occult blood positive. GI was consulted. Total 2 units of PRBC were transfused. EGD on 05/18/2024 Impressions : - Normal esophagus. - Oozing gastric ulcer with a visible vessel. Treated with a heater probe. - Chronic gastritis. Biopsied. - Mucosal variant in the duodenum. Recommendations : - Await pathology results. - Use Protonix (pantoprazole) 40 mg PO BID. -If patient continues to have pain then we can introduce liquid Carafate 1 g twice a day for 8 weeks. 5. Incidental thyroid Nodules: TSH normal 1.920. CTA chest shows few thyroid nodules largest in the left lobe 1.6 cm. Since the patient came for primary complaint of CHF exacerbation, not related to thyroid nodules therefore thyroid ultrasound and further workup can be done as an outpatient when patient is stable. 6. Essential Hypertension; on lisinopril, nifedipine, hydralazine, carvedilol and clonidine patch - Maintain home regimen plus give Hydralazine IV prn for systolic blood pressure > 160 mmHg. 05/18: Blood pressure is elevated 163/87. Patient on clonidine, BP parameter changed. 7. Hyperlipidemia; on atorvastatin as mentioned above 8. Chronic metastatic renal cell carcinoma status post right nephrectomy status and no gallbladder recurrence status post TURBT. History of metastatic renal cell carcinoma; status post Right nephrectomy with local recurrence in the bladder x 2; status post TURBT - Noted. other multiple comorbidities include history of shingles on valacyclovir, chronic thrombocytopenia, platelet about 100 68K, GERD, RA and degenerative osteoarthritis status post bilateral TKR and lumbar spinal stenosis DVT prophylaxis - Patient on renally-dosed Lovenox. Bilateral SCDs 05/17: Lovenox on hold because of severe anemia I called patient's [id number] Dr. Durand to give an update. Microbiology Past 72 Hours 05/16/24 07:35 Urine, Random Urine Culture - Final Culture exhibits no growth. 05/15/24 21:15 Stool Stool Occult Blood (DERICK) - Final Occult Blood Positive 05/15/24 01:23 Urine, Clean Catch Urine Culture - Final Culture exhibits no growth. 05/14/24 21:26 Blood Culture (Wb) - Arm Right Blood Culture - Preliminary No growth in 48 hours. 05/14/24 21:26 Blood Culture (Wb) - Right Hand Blood Culture - Preliminary No growth in 48 hours. Laboratory Results 05/17/24 05:01: Phosphorus 6.7 H, Magnesium 2.0 05/18/24 06:25: WBC 6.5, RBC 2.64 L, Hgb 7.8 L, Hct 24.6 L, MCV 93.2, MCH 29.5, MCHC 31.7 L, RDW Std Deviation 68.1 H, RDW Coeff of Wiliam 20.1 H, Plt Count 123 L, MPV 11.2, Immature Gran % (Auto) 0.900, Neut % (Auto) 63.1, Lymph % (Auto) 22.4, Hardeman % (Auto) 10.4 H, Eos % (Auto) 2.9, Baso % (Auto) 0.3, Absolute Neuts (auto) 4.1, Absolute Lymphs (auto) 1.45, Nucleated RBC % 0, Anisocytosis 1+, Sodium 140, Potassium 4.7, Chloride 108 H, Carbon Dioxide 24.0, Anion Gap 8, BUN 32 H, Creatinine 4.16 H, Estim Creat Clear Calc 7.23, Est GFR (MDRD) Af Amer 13 L, Est GFR (MDRD) Non-Af 11 L, BUN/Creatinine Ratio 7.7 L, Glucose 123 H, Calcium 8.9 Charges/Coding Visit Charges Inpatient E&M: 06460 Subs Hosp L3
[2024-05-18] MEDS: Acetaminophen 500 MG Tablet 1000 MG PO ×2 (17:10→22:36)
[2024-05-18] MEDS: Sucralfate 1 GM Tablet PO (17:10)
[2024-05-18] MEDS: cloNIDine HCl 0.1 MG Tablet PO (17:25)
--- NOTE | 2024-05-18 19:39 | PCM.POSTANE2 ---
Anesthesia Postop Eval I Sum Postop Eval Completion status Anesthesia document: Postop Eval 1 completed: Yes Anesthesia Postop Eval I Summary Anesthesia Postop Eval I Summary: Anesthesia Postop Eval I: Assessment Summary Airway patent Yes 05/18/24 12:35 [email or web address] Spontaneous unlabored Yes 05/18/24 12:35 [email or web address] respirations Mental status Asleep 05/18/24 12:35 [email or web address] nausea No 05/18/24 12:35 [email or web address] Vomiting No 05/18/24 12:35 [email or web address] Anesthesia Postop Eval I: Fluid Summary Crystalloid volume administer 30 05/18/24 12:35 [email or web address] (ml) Colloids volume administered ( ml) Blood Product volume administered (ml) Total IV fluid infused 30 05/18/24 12:35 [email or web address] Anesthesia Postop Eval I: Summary Notes Anesthesia Complication No 05/18/24 12:35 [email or web address] Anesthesia Complication Comment: Post-operative progress note Anesthesia: Postop Eval II Evaluation Mental status: Asleep Pain Level: 0 nausea: No Vomiting: No Complications Anesthesia Complication: No
[2024-05-18] MEDS: Latanoprost 0.005% 1 Bottle 1 DRP EACH EYE (22:35)
[2024-05-18] MEDS: Senna/Docusate Sodium 1 Tablet 2 TABLET PO (22:36)
[2024-05-18] MEDS: Atorvastatin Calcium 10 MG Tablet PO (22:38)
[2024-05-18] MEDS: Mirtazapine 15 MG Tablet 7.5 MG PO (22:38)
[2024-05-18] MEDS: Ondansetron 8 MG Tablet PO (22:39)
[2024-05-19] VITALS (17 sets, daily range): BP systolic 134–214; BP diastolic 54–74; PULSE 50–84; RESP 14–18; TEMP 36.4–36.8; O2SAT 94–100; BMI 20.7; BMI 19.7
[2024-05-19] MEDS: cloNIDine HCl 0.1 MG Tablet PO (04:32)
[2024-05-19] MEDS: 0.9% Saline Lock 10 ML Syringe IV ×3 (04:33→14:02)
[2024-05-19] MEDS: Acetaminophen 500 MG Tablet 1000 MG PO ×2 (05:58→14:02)
[2024-05-19] MEDS: Gabapentin 100 MG Capsule PO ×2 (05:58→14:14)
[2024-05-19] MEDS: Sucralfate 1 GM Tablet PO ×2 (05:58→16:14)
[2024-05-19] MEDS: Levothyroxine 25 MCG TABLET PO (05:58)
[2024-05-19] MEDS: hydrALAZINE 50 MG Tablet 100 MG PO ×2 (05:58→16:12)
[2024-05-19 07:47] LABS: Absolute Lymphocyte Count 1.18 X10^3/uL (0.83-4.51); Absolute Neutrophil Count 4.3 X10^3/uL (2.0-7.7); Basophil# 0.01 X10^3/uL; Basophil% 0.2 % (0-1); Eosinophils% 3.1 % (0-5); Hematocrit 23.7 % (37-47); Hemoglobin 7.5 g/dL (12.0-15.0); Lymphocyte # 1.18 X10^3/ul (0.83-4.51); Lymphocyte % 18.2 % (19-41); Mean Corp Hgb Conc 31.6 g/dL (32-36); Mean Corpuscular Hgb 29.6 pg (27.0-32.0); Mean Corpuscular Volume 93.7 fL (81-99); Mean Platelet Vol. 11.3 fl (6.2-12.0); Monocyte# 0.74 X10^3/uL; Monocyte% 11.4 % (0-10); NRBC Flagged by Analyzer 0 % (0-5); Neutrophil % 66.3 % (47-70); POSITIVE MORPHOLOGY YES; Platelet Count 128 K/mm3 (150-450); RBC Distribution Width CV 19.4 % (11.6-14.6); RBC Distribution Width SD 66.3 fl (35.1-43.9); Red Blood Count 2.53 M/mm3 (4.2-5.4); White Blood Count 6.5 K/mm3 (4.4-11.0)
--- NOTE | 2024-05-19 07:55 | EX.PCM.PN.GI ---
Subjective Subjective Patient underwent endoscopy yesterday. She was discovered to have a GI bleed secondary to ulcer. Objective Data Objective Data Vital Signs: Vital Signs Temp Pulse Resp BP Pulse Ox O2 Del Method O2 Flow Rate 97.7 F L 74 18 159/58 H 98 Room Air 1 05/19/24 14:48 05/19/24 16:12 05/19/24 14:48 05/19/24 16:12 05/19/24 14:48 05/19/24 14:48 05/19/24 13:23 Oxygen Flow Rate (L/min) 1 Oxygen Delivery Method Room Air Weight: 100 lb 4.965 oz Body Mass Index (BMI) 19.7 Intake & Output: Intake and Output for Last 24 Hours 05/17/24 05/18/24 05/19/24 23:59 23:59 23:59 Intake Total 1221 / 1221 460 / 460 260 / 260 Output Total 3115 / 3115 2 / 2 2400 / 2400 Balance -1894 / -1894 458 / 458 -2140 / -2140 Lab / Micro Data 05/19/24 07:03 05/19/24 07:03 Labs: Laboratory Results - last 24 hr 05/19/24 07:03: WBC 6.5, RBC 2.53 L, Hgb 7.5 L, Hct 23.7 L, MCV 93.7, MCH 29.6, MCHC 31.6 L, RDW Std Deviation 66.3 H, RDW Coeff of Wiliam 19.4 H, Plt Count 128 L, MPV 11.3, Immature Gran % (Auto) 0.800, Neut % (Auto) 66.3, Lymph % (Auto) 18.2 L, Clay % (Auto) 11.4 H, Eos % (Auto) 3.1, Baso % (Auto) 0.2, Absolute Neuts (auto) 4.3, Absolute Lymphs (auto) 1.18, Nucleated RBC % 0, Platelet Estimate ADEQUATE, Hypochromasia 1+, Anisocytosis 2+, Sodium 139, Potassium 5.2 H, Chloride 105, Carbon Dioxide 25.0, Anion Gap 9, BUN 43 H, Creatinine 5.67 H, Estim Creat Clear Calc 5.31, Est GFR (MDRD) Af Amer 9 L, Est GFR (MDRD) Non-Af 8 L, BUN/Creatinine Ratio 7.6 L, Glucose 136 H, Calcium 9.0 Micro: Microbiology 05/16/24 07:35 Urine, Random Urine Culture - Final Culture exhibits no growth. 05/15/24 21:15 Stool Stool Occult Blood (DERICK) - Final Occult Blood Positive 05/15/24 01:23 Urine, Clean Catch Urine Culture - Final Culture exhibits no growth. 05/14/24 21:26 Blood Culture (Wb) - Arm Right Blood Culture - Preliminary No growth in 48 hours. 05/14/24 21:26 Blood Culture (Wb) - Right Hand Blood Culture - Preliminary No growth in 48 hours. 05/14/24 20:45 Mucosa - Nose SARS-CoV-2, Influenza & RSV (PCR) - Final Physical Exam Const alert, oriented x3, no apparent distress and healthy appearing General Appearance: cooperative GI normal to inspection, nondistended, normoactive bowel sounds, soft to palpation, non-tender and non-distended Percussion: normal to percussion Rectal Exam: deferred Assessment & Plan Assessment/Plan (1) Acute on chronic diastolic CHF (congestive heart failure): (2) Pleural effusion: (3) Elevated troponin: (4) Anemia: QUALIFIERS: Anemia type: unspecified type Qualified Code(s): D64.9 - Anemia, unspecified PLAN: Plan 83-year-old female was admitted with a chief complaint of shortness of breath, hypoxia SpO2 77% on room air by EMS. After supper, she stood up in order to go to bathroom felt short of breath and almost passed out and had difficulty in breathing. Chronic severe anemia: H&H chronically low stays between 7 to to 9 g. Monitor CBC daily. If it drops less than 7 g will need PRBC transfusion. 05/16: Even after transfusion of 1 PRBC yesterday her hemoglobin is still low 7.3 did not change. 05/17: Her hemoglobin dropped to 6.4 g%. 1 unit of PRBC ordered bleeding hemodialysis. 05/18: Urine culture shows no growth. Blood culture negative for 48 hours. Hemoglobin 7.8. Platelet count 100 23K, baseline thrombocytopenia. Platelet count was about 150K in December or January 2024. Stool for occult blood positive. GI was consulted. Total 2 units of PRBC were transfused. EGD on 05/18/2024 Impressions : - Normal esophagus. - Oozing gastric ulcer with a visible vessel. Treated with a heater probe. - Chronic gastritis. Biopsied. - Mucosal variant in the duodenum. Recommendations : - Await pathology results. - Use Protonix (pantoprazole) 40 mg PO BID. -If patient continues to have pain then we can introduce liquid Carafate 1 g twice a day for 8 weeks. Charges/Coding Visit Charges Inpatient E&M: [address] [facility] Hosp L3
[2024-05-19 08:04] LABS: Anion Gap 9 (5-15); BUN 43 mg/dL (7-18); BUN/Creat Ratio 7.6 RATIO (10-20); Chloride 105 mmol/L (98-107); Creatinine, Serum 5.67 mg/dL (0.55-1.02); EST Glomerular Filtration Rate 8 mL/min (>60); Est Glom Filt Rate - Afr Amer 9 mL/min (>60); Estimated Creatinine Clearance 5.31 ml/min; Glucose 136 mg/dL (74-106); Potassium 5.2 mmol/L (3.5-5.1); Sodium Level 139 mmol/L (136-145)
[2024-05-19] MEDS: 0.9% Normal Saline 1,000 ML IV.SOLN. 1000 ML OPERA.SITE (09:11)
[2024-05-19] MEDS: PureFlow B 2K Dialysis Soln 1 BAG 6 BAG PF (09:11)
[2024-05-19] MEDS: Heparin 10,000 UNITS/10 ML Vial IV (09:12)
--- NOTE | 2024-05-19 09:28 | CASEMGMT ---
MARYAM was informed patient and family would like for patient to go to a SNF for rehab. MARYAM called patient's son Jabier as he is the individual that helps patient with decisions. Jabier said he would like [facility] as they have onsite dialysis. MARYAM explained that [facility] no longer does onsite dialysis. MARYAM explained they can transport patient to and from dialysis. Jabier asked about other places in [place] that could transport. MARYAM told Jabier the 3 facilities in [place] that are usually able to arrange transportation are [facility], [facility], and [facility]. Patient normally uses [facility] to transport her. Jabier said patient has a contract through [facility]. MARYAM is not sure patient will still be able to use this as she will be at a fci and not home so [facility] may put tranport on the fci. Jabier asked MARYAM to send a referral to [facility] and second would be [facility]. MARYAM asked Chiara to send a referral to [facility]. MARYAM called [facility] and spoke with Caron. MARYAM asked for patient's chair time. Caron told MARYAM she will have to call MARYAM back as she needs to talk with her embedded software manager. Plan: SNF pending accepting facility. Janeth Rahman [employer]
--- NOTE | 2024-05-19 09:39 | CASEMGMT ---
Addendum entered by Chiara Hopkins 05/19/24 11:20: [facility] has accepted. SW updated. Chaira Hopkins DC Planning Asst. Original Note: Referral sent to [facility]. Chiara Hopkins DC Planning Asst.
[2024-05-19 09:52] LABS: Anisocytosis 2+; Platelet Estimate ADEQUATE (ADEQ)
[2024-05-19 09:53] LABS: Hypochromasia 1+; POSITIVE DIFFERENTIAL NO
--- NOTE | 2024-05-19 13:21 | PCM.PN.HOSP ---
Reason for Visit Reason for Visit: Diagnoses Malignant neoplasm of unspecified kidney, except renal pelvis (05/15/24) Anemia, unspecified (05/15/24) Acidosis, unspecified (05/15/24) Essential (primary) hypertension (05/15/24) Acute on chronic diastolic (congestive) heart failure (05/15/24) Acute on chronic combined systolic (congestive) and diastolic (congestive) heart failure (05/15/24) Heart disease, unspecified (05/15/24) Pleural effusion, not elsewhere classified (05/15/24) End stage renal disease (05/15/24) Other abnormalities of breathing (05/15/24) Hematuria, unspecified (05/15/24) Other specified abnormal findings of blood chemistry (05/15/24) Dependence on renal dialysis (05/15/24) Objective Data Objective Data Vital Signs: Vital Signs Temp Pulse Resp BP Pulse Ox O2 Del Method O2 Flow Rate 97.7 F L 67 18 164/55 H 98 Room Air 1 05/19/24 13:00 05/19/24 13:00 05/19/24 13:00 05/19/24 13:00 05/19/24 13:00 05/19/24 13:00 05/19/24 08:00 Oxygen Flow Rate (L/min) 1 Oxygen Delivery Method Room Air Weight: 105 lb 13.15 oz Body Mass Index (BMI) 20.7 Intake & Output: Intake and Output for Last 24 Hours 05/17/24 05/18/24 05/19/24 23:59 23:59 23:59 Intake Total 1221 / 1221 460 / 460 Output Total 3115 / 3115 Balance -1894 / -1894 458 / 458 Lab / Micro Data 05/19/24 07:03 05/19/24 07:03 Labs: Laboratory Results - last 24 hr 05/19/24 07:03: WBC 6.5, RBC 2.53 L, Hgb 7.5 L, Hct 23.7 L, MCV 93.7, MCH 29.6, MCHC 31.6 L, RDW Std Deviation 66.3 H, RDW Coeff of Wiliam 19.4 H, Plt Count 128 L, MPV 11.3, Immature Gran % (Auto) 0.800, Neut % (Auto) 66.3, Lymph % (Auto) 18.2 L, [place] % (Auto) 11.4 H, Eos % (Auto) 3.1, Baso % (Auto) 0.2, Absolute Neuts (auto) 4.3, Absolute Lymphs (auto) 1.18, Nucleated RBC % 0, Platelet Estimate ADEQUATE, Hypochromasia 1+, Anisocytosis 2+, Sodium 139, Potassium 5.2 H, Chloride 105, Carbon Dioxide 25.0, Anion Gap 9, BUN 43 H, Creatinine 5.67 H, Estim Creat Clear Calc 5.31, Est GFR (MDRD) Af Amer 9 L, Est GFR (MDRD) Non-Af 8 L, BUN/Creatinine Ratio 7.6 L, Glucose 136 H, Calcium 9.0 Micro: Microbiology 05/16/24 07:35 Urine, Random Urine Culture - Final Culture exhibits no growth. 05/15/24 21:15 Stool Stool Occult Blood (DERICK) - Final Occult Blood Positive 05/15/24 01:23 Urine, Clean Catch Urine Culture - Final Culture exhibits no growth. 05/14/24 21:26 Blood Culture (Wb) - Arm Right Blood Culture - Preliminary No growth in 48 hours. 05/14/24 21:26 Blood Culture (Wb) - Right Hand Blood Culture - Preliminary No growth in 48 hours. 05/14/24 20:45 Mucosa - Nose SARS-CoV-2, Influenza & RSV (PCR) - Final Radiography Diagnostic Testing: Radiology Impression Venous Doppler Study 05/18/24 09:49 Interpretation Summary Deep veins of the bilateral lower extremities are patent and compressible segmentally. There is no evidence of bilateral lower extremity deep vein thrombosis. The bilateral great saphenous veins appear patent and compressible segmentally. Ordering Physician: Rafita Monzon Referring Physician: Jacky Morgan Performed By: Brittany Alexander RVT and Student Physical Exam Narrative Seen and examined No acute complaint. Patient getting hemodialysis. Venous duplex was negative for acute DVT. PT and OT. Patient and family agreed for SNF. Patient had bowel movement on 05/17. Patient was admitted with shortness of breath. She has dyspnea on exertion gets short of breath on minimal to mild exertion even on conversation. Denies chest pain or pressure or tightness Physical exam General: Alert, Oriented x3, Cooperative, fatigue/frail. HEENT: Atraumatic, PERRLA, EOMI, Normocephalic Oral: Oral mucosa dry no Gingival or Mucosal Lesions/ Ulcerations Neck: Supple, No JVD, Negative Carotid Bruits Chest wall/Lungs: Air entry diminished in bilateral lung bases, bilateral small/moderate effusion. No crepitation/rhonchi Cardiovascular: Regular rate, Regular Rhythm, Normal S1, Normal S2, systolic murmur Abdomen: Bowel Sounds Present, Soft, Non Tender, Non-Distended : On HD no dysuria. No renal angle tenderness. No suprapubic tenderness. Extremities: No edema, Capillary Refill Less than 3 Seconds Skin: No rashes, No breakdown Musculoskeletal: No Tenderness to Palpation of Joints or Extremities. ROM decreased. Mild decreased muscle bulk of lower extremities, muscle strength 4/5 at knees and hip joints. Neurological: Cranial nerves II-XII grossly intact, DTR 2+/4. No acute focal neurological deficit. 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 Assessment & Plan Assessment/Plan (1) Acute on chronic diastolic CHF (congestive heart failure): (2) Pleural effusion: (3) Elevated troponin: (4) Anemia: QUALIFIERS: Anemia type: unspecified type Qualified Code(s): D64.9 - Anemia, unspecified PLAN: Plan 83-year-old female was admitted with a chief complaint of shortness of breath, hypoxia SpO2 77% on room air by EMS. After supper, she stood up in order to go to bathroom felt short of breath and almost passed out and had difficulty in breathing. 1. AE of chronic diastolic CHF; with preserved LVEF and bilateral pleural effusion and pulmonary hypertension: Patient is being admitted in PCU. Chest x-ray and CTA chest reviewed. No PE. Moderate bilateral pleural effusion and pulmonary edema. BNP elevated. Heart failure core measures including intake and output, fluid restriction less than 1500 mL, daily weight monitoring, kidney and electrolytes monitoring. Bumex increased to 1 mg IV twice daily. Incentive spirometry and Pep. Discussed with the clinical laboratory director and patient does not need dialysis today and most likely not tomorrow. Lactic acid 2.4, repeat 1 was normal, 1.1. Probably due to decreased peripheral perfusion 05/16: No shortness of breath. Respiratory status is better. Pulse ox 100% on 2 L of oxygen, wean down the oxygen. Heart rate and blood pressure are controlled. 05/17: I talked to the patient's [id number], Dr. Durand and she wanted investigation specialist consult for optimization of medicine. Margin Analyst Dr. Szymanski consulted as per the patient's request. BP is 140/65 heart rate 69/min. I feel patient already on maximal tolerated medicine. 05/18: With recommendation of Dr. Szymanski, Procardia changed to amlodipine 10 mg daily. Recommended limited echo in 6 to 8 weeks for wall motion abnormality. Follow-up in cardiology office. Complain of right leg pain with muscle spasm. On Tylenol 1 g Q8 hourly. Venous duplex ordered 05/19 blood pressure slightly elevated 2. Mildly elevated troponin probably due to acute cardiac strain/pulmonary edema: Patient does not have chest pain pressure or tightness. Troponins 171, 418, 814. 2D echo was done and echo findings discussed with the investigation specialist Dr. Dang. EF 40%, stage II diastolic dysfunction, mild to moderate concentric LVH, severe anterior apical and mid to distal septal hypokinesis to akinesis. Mild MR, mild TR RVSP 61 mm this is to moderate pulmonary hypertension. Moderate size left pleural effusion. She is on carvedilol 50 mg twice daily, home dose, hydralazine, lisinopril and Procardia XL. She is on maximal medical therapy. Lipid profile shows TG 130, LDL 69. HDL 54. Margin Analyst opinion was to follow-up investigation specialist as an outpatient. 05/16: Patient used to follow some [place] investigation specialist, last visited 2 years ago. She is eager to follow [place] cardiology, names given. 05/19: Patient was given baby aspirin but refusing and also has low hemoglobin and platelet count. Hemoglobin 7.5. DVT prophylaxis was also discontinued before. Mild thrombocytopenia, platelet count also 128K. 3. ESRD; on HD (M-W-) with anemia of chronic disease/CKD: Patient was evaluated by clinical laboratory director. She does not need dialysis today is more probably not tomorrow. She was accepted by [facility] for dialysis as we did not have dialysis nurse on this weekend but she does not need diuresis therefore transfer was canceled. This was done as per clinical laboratory director recommendation. 05/16: Discussed with the clinical laboratory director today. Plan is dialysis tomorrow morning 05/17: Patient is getting hemodialysis 4. Chronic severe anemia: H&H chronically low stays between 7 to to 9 g. Monitor CBC daily. If it drops less than 7 g will need PRBC transfusion. 05/16: Even after transfusion of 1 PRBC yesterday her hemoglobin is still low 7.3 did not change. 05/17: Her hemoglobin dropped to 6.4 g%. 1 unit of PRBC ordered bleeding hemodialysis. 05/18: Urine culture shows no growth. Blood culture negative for 48 hours. Hemoglobin 7.8. Platelet count 100 23K, baseline thrombocytopenia. Platelet count was about 150K in December or January 2024. Stool for occult blood positive. GI was consulted. Total 2 units of PRBC were transfused. EGD on 05/18/2024 Impressions : - Normal esophagus. - Oozing gastric ulcer with a visible vessel. Treated with a heater probe. - Chronic gastritis. Biopsied. - Mucosal variant in the duodenum. Recommendations : - Await pathology results. - Use Protonix (pantoprazole) 40 mg PO BID. -If patient continues to have pain then we can introduce liquid Carafate 1 g twice a day for 8 weeks. 5. Incidental thyroid Nodules: TSH normal 1.920. CTA chest shows few thyroid nodules largest in the left lobe 1.6 cm. Since the patient came for primary complaint of CHF exacerbation, not related to thyroid nodules therefore thyroid ultrasound and further workup can be done as an outpatient when patient is stable. 6. Essential Hypertension; on lisinopril, nifedipine, hydralazine, carvedilol and clonidine patch - Maintain home regimen plus give Hydralazine IV prn for systolic blood pressure > 160 mmHg. 05/18: Blood pressure is elevated 163/87. Patient on clonidine, BP parameter changed. 7. Hyperlipidemia; on atorvastatin as mentioned above 8. Chronic metastatic renal cell carcinoma status post right nephrectomy status and no gallbladder recurrence status post TURBT. History of metastatic renal cell carcinoma; status post Right nephrectomy with local recurrence in the bladder x 2; status post TURBT - Noted. other multiple comorbidities include history of shingles on valacyclovir, chronic thrombocytopenia, platelet about 100 68K, GERD, RA and degenerative osteoarthritis status post bilateral TKR and lumbar spinal stenosis DVT prophylaxis - Patient on renally-dosed Lovenox. Bilateral SCDs 05/17: Lovenox on hold because of severe anemia I called patient's [id number] Dr. Durand to give an update. Microbiology Past 72 Hours 05/16/24 07:35 Urine, Random Urine Culture - Final Culture exhibits no growth. 05/15/24 21:15 Stool Stool Occult Blood (DERICK) - Final Occult Blood Positive 05/15/24 01:23 Urine, Clean Catch Urine Culture - Final Culture exhibits no growth. 05/14/24 21:26 Blood Culture (Wb) - Arm Right Blood Culture - Preliminary No growth in 48 hours. 05/14/24 21:26 Blood Culture (Wb) - Right Hand Blood Culture - Preliminary No growth in 48 hours. Laboratory Results 05/17/24 05:01: Phosphorus 6.7 H, Magnesium 2.0 05/18/24 06:25: WBC 6.5, RBC 2.64 L, Hgb 7.8 L, Hct 24.6 L, MCV 93.2, MCH 29.5, MCHC 31.7 L, RDW Std Deviation 68.1 H, RDW Coeff of Wiliam 20.1 H, Plt Count 123 L, MPV 11.2, Immature Gran % (Auto) 0.900, Neut % (Auto) 63.1, Lymph % (Auto) 22.4, [place] % (Auto) 10.4 H, Eos % (Auto) 2.9, Baso % (Auto) 0.3, Absolute Neuts (auto) 4.1, Absolute Lymphs (auto) 1.45, Nucleated RBC % 0, Anisocytosis 1+, Sodium 140, Potassium 4.7, Chloride 108 H, Carbon Dioxide 24.0, Anion Gap 8, BUN 32 H, Creatinine 4.16 H, Estim Creat Clear Calc 7.23, Est GFR (MDRD) Af Amer 13 L, Est GFR (MDRD) Non-Af 11 L, BUN/Creatinine Ratio 7.7 L, Glucose 123 H, Calcium 8.9 Charges/Coding Visit Charges Inpatient E&M: 42853 Subs Hosp L2
[2024-05-19] MEDS: Pantoprazole Sodium 40 MG in 0.9% Normal Saline (100mL MB+) 100 ML 330 MG IV (13:24)
--- NOTE | 2024-05-19 13:54 | CASEMGMT ---
MARYAM called Jose to obtain dialysis schedule. MARYAM was informed they are communicating with [facility] regarding a chair time. MARYAM asked [facility] if it is okay to send patient and can they accommodate the dialysis schedule? [facility] said they can accommodate dialysis and go ahead and send patient. MARYAM notified physician that patient can go today. MARYAM called patient's son Jabier and let him know. MARYAM asked if he would like transport set up and he said he would. Patient will leave today and someone will notify him when a time has been arranged. MARYAM completed a 7000 in [facility] system. Plan: d/c to [facility] under skilled level of care on a convalescent stay. Physicians will transport patient. Janeth Rahman EMAIL PRODUCTION CONSULTANTBarbara SHEPHERD
[2024-05-19] MEDS: Bumetanide 1 MG/4 ML Vial 2 MG IV (14:02)
--- NOTE | 2024-05-19 14:02 | PCM.TXEXTCAR ---
Diet Diet Order/Speech Therapy: 05/18/24 14:16 Diet: Renal - ConsCHO - Christopher Cont Type of Dietary Supplement:: Nepro Fluid restriction:: 1500 mL Diet Comments: NO BEEF CONTAINING PRODUCTS! 120mL nepro with meals How many daily calories?: 1500 calorie DC O2, CPAP, BIPAP needs Home O2 Discharge instructions: No Problem/Diagnosis (1) Acute on chronic diastolic CHF (congestive heart failure): Status: Chronic Code(s): I50.33 - Acute on chronic diastolic (congestive) heart failure (2) Pleural effusion: Status: Acute Code(s): J90 - Pleural effusion, not elsewhere classified (3) Elevated troponin: Status: Acute Code(s): R79.89 - Other specified abnormal findings of blood chemistry (4) Anemia: Status: Acute Code(s): D64.9 - Anemia, unspecified Plan 83-year-old female was admitted with a chief complaint of shortness of breath, hypoxia SpO2 77% on room air by EMS. After supper, she stood up in order to go to bathroom felt short of breath and almost passed out and had difficulty in breathing. 1. AE of chronic diastolic CHF; with preserved LVEF and bilateral pleural effusion and pulmonary hypertension: Patient is being admitted in PCU. Chest x-ray and CTA chest reviewed. No PE. Moderate bilateral pleural effusion and pulmonary edema. BNP elevated. Heart failure core measures including intake and output, fluid restriction less than 1500 mL, daily weight monitoring, kidney and electrolytes monitoring. Bumex increased to 1 mg IV twice daily. Incentive spirometry and Pep. Discussed with the hospice executive director and patient does not need dialysis today and most likely not tomorrow. Lactic acid 2.4, repeat 1 was normal, 1.1. Probably due to decreased peripheral perfusion 05/16: No shortness of breath. Respiratory status is better. Pulse ox 100% on 2 L of oxygen, wean down the oxygen. Heart rate and blood pressure are controlled. 05/17: I talked to the patient's todxzjju-cn-qlr, Dr. Durand and she wanted rim roller setter consult for optimization of medicine. Civil Manager Dr. Szymanski consulted as per the patient's request. BP is 140/65 heart rate 69/min. I feel patient already on maximal tolerated medicine. 05/18: With recommendation of Dr. Szymanski, Procardia changed to amlodipine 10 mg daily. Recommended limited echo in 6 to 8 weeks for wall motion abnormality. Follow-up in cardiology office. Complain of right leg pain with muscle spasm. On Tylenol 1 g Q8 hourly. Venous duplex ordered 05/19 blood pressure slightly elevated 2. Mildly elevated troponin probably due to acute cardiac strain/pulmonary edema: Patient does not have chest pain pressure or tightness. Troponins 171, 418, 814. 2D echo was done and echo findings discussed with the rim roller setter Dr. Dang. EF 40%, stage II diastolic dysfunction, mild to moderate concentric LVH, severe anterior apical and mid to distal septal hypokinesis to akinesis. Mild MR, mild TR RVSP 61 mm this is to moderate pulmonary hypertension. Moderate size left pleural effusion. She is on carvedilol 50 mg twice daily, home dose, hydralazine, lisinopril and Procardia XL. She is on maximal medical therapy. Lipid profile shows TG 130, LDL 69. HDL 54. Civil Manager opinion was to follow-up rim roller setter as an outpatient. 05/16: Patient used to follow some [place] rim roller setter, last visited 2 years ago. She is eager to follow [place] [facility]ology, names given. 05/19: Patient was given baby aspirin but refusing and also has low hemoglobin and platelet count. Hemoglobin 7.5. DVT prophylaxis was also discontinued before. Mild thrombocytopenia, platelet count also 128K. 3. ESRD; on HD (-W-) with anemia of chronic disease/CKD: Patient was evaluated by hospice executive director. She does not need dialysis today is more probably not tomorrow. She was accepted by [facility] for dialysis as we did not have dialysis nurse on this weekend but she does not need diuresis therefore transfer was canceled. This was done as per hospice executive director recommendation. 05/16: Discussed with the hospice executive director today. Plan is dialysis tomorrow morning 05/17: Patient is getting hemodialysis 4. Chronic severe anemia: H&H chronically low stays between 7 to to 9 g. Monitor CBC daily. If it drops less than 7 g will need PRBC transfusion. 05/16: Even after transfusion of 1 PRBC yesterday her hemoglobin is still low 7.3 did not change. 05/17: Her hemoglobin dropped to 6.4 g%. 1 unit of PRBC ordered bleeding hemodialysis. 05/18: Urine culture shows no growth. Blood culture negative for 48 hours. Hemoglobin 7.8. Platelet count 100 23K, baseline thrombocytopenia. Platelet count was about 150K in December or January 2024. Stool for occult blood positive. GI was consulted. Total 2 units of PRBC were transfused. EGD on 05/18/2024 Impressions : - Normal esophagus. - Oozing gastric ulcer with a visible vessel. Treated with a heater probe. - Chronic gastritis. Biopsied. - Mucosal variant in the duodenum. Recommendations : - Await pathology results. - Use Protonix (pantoprazole) 40 mg PO BID. -If patient continues to have pain then we can introduce liquid Carafate 1 g twice a day for 8 weeks. 5. Incidental thyroid Nodules: TSH normal 1.920. CTA chest shows few thyroid nodules largest in the left lobe 1.6 cm. Since the patient came for primary complaint of CHF exacerbation, not related to thyroid nodules therefore thyroid ultrasound and further workup can be done as an outpatient when patient is stable. 6. Essential Hypertension; on lisinopril, nifedipine, hydralazine, carvedilol and clonidine patch - Maintain home regimen plus give Hydralazine IV prn for systolic blood pressure > 160 mmHg. 05/18: Blood pressure is elevated 163/87. Patient on clonidine, BP parameter changed. 7. Hyperlipidemia; on atorvastatin as mentioned above 8. Chronic metastatic renal cell carcinoma status post right nephrectomy status and no gallbladder recurrence status post TURBT. History of metastatic renal cell carcinoma; status post Right nephrectomy with local recurrence in the bladder x 2; status post TURBT - Noted. other multiple comorbidities include history of shingles on valacyclovir, chronic thrombocytopenia, platelet about 100 68K, GERD, RA and degenerative osteoarthritis status post bilateral TKR and lumbar spinal stenosis DVT prophylaxis - Patient on renally-dosed Lovenox. Bilateral SCDs 05/17: Lovenox on hold because of severe anemia I called patient's ozyleusf-rw-hpn Dr. Durand to give an update. Microbiology Past 72 Hours 05/16/24 07:35 Urine, Random Urine Culture - Final Culture exhibits no growth. 05/15/24 21:15 Stool Stool Occult Blood (DERICK) - Final Occult Blood Positive 05/15/24 01:23 Urine, Clean Catch Urine Culture - Final Culture exhibits no growth. 05/14/24 21:26 Blood Culture (Wb) - Arm Right Blood Culture - Preliminary No growth in 48 hours. 05/14/24 21:26 Blood Culture (Wb) - Right Hand Blood Culture - Preliminary No growth in 48 hours. Laboratory Results 05/17/24 05:01: Phosphorus 6.7 H, Magnesium 2.0 05/18/24 06:25: WBC 6.5, RBC 2.64 L, Hgb 7.8 L, Hct 24.6 L, MCV 93.2, MCH 29.5, MCHC 31.7 L, RDW Std Deviation 68.1 H, RDW Coeff of Wiliam 20.1 H, Plt Count 123 L, MPV 11.2, Immature Gran % (Auto) 0.900, Neut % (Auto) 63.1, Lymph % (Auto) 22.4, [place] % (Auto) 10.4 H, Eos % (Auto) 2.9, Baso % (Auto) 0.3, Absolute Neuts (auto) 4.1, Absolute Lymphs (auto) 1.45, Nucleated RBC % 0, Anisocytosis 1+, Sodium 140, Potassium 4.7, Chloride 108 H, Carbon Dioxide 24.0, Anion Gap 8, BUN 32 H, Creatinine 4.16 H, Estim Creat Clear Calc 7.23, Est GFR (MDRD) Af Amer 13 L, Est GFR (MDRD) Non-Af 11 L, BUN/Creatinine Ratio 7.7 L, Glucose 123 H, Calcium 8.9 Allergies/Procedures Done in Hospital Allergies adalimumab (From Humira) Allergy (Verified 05/14/24 20:29) Hives Type of Care/Length of Stay Estimated LOS: Convalescent Care Less Than 30 days Type of Care Needed: Skilled Rehab Potential: Fair Prognosis: Fair Additional Orders/Day of Discharge Day of Discharge: 05/19/24 Dietary and Speech Recommendations Dietitian Recommendations/Changes: Will change diet to 1500 calorie/carbohydrate-controlled/renal with 1500mL FR. Will add 120mL PO Nepro w/ meals. Renal diet reinforcement as needed prior to d/c. Discharge Plan Admission Admit Date/Time: 05/15/24 05:08 Attending Provider: Rafita Monzon Primary Care Provider: Jacky Morgan Consulting Providers: Philippe Grant; Lizzy Richards; Kenneth Szymanski Instructions Additional Instructions / Restrictions: Patient follows hospice executive director outside. Discharge Orders/Prescriptions Prescriptions: New amlodipine 10 mg Tablet 10 mg PO DAILY Qty: 0 0RF hydralazine 50 mg Tablet 100 mg PO Q8 Qty: 0 0RF sucralfate 1 gram Tablet 1 g PO BID@0700,1600 60 Days Qty: 120 0RF sennosides-docusate sodium [Stimulant Laxative Plus] 8.6-50 mg Tablet 2 tab PO BID Qty: 0 0RF Continued clonidine HCl 0.1 mg tablet 0.1 mg PO Q6H PRN (Reason: hypertensive emergency) Patient Comments: for SBP >180 (DME) handicap placard See Rx Instructions .Route .MEDSUPPLY Qty: 1 0RF Rx Instructions: Dispense one placard (one year) atorvastatin 10 mg tablet 10 mg PO DAILY Qty: 90 1RF carvedilol 25 mg tablet 50 mg PO BID Qty: 180 1RF levothyroxine 25 mcg tablet 25 mcg PO DAILY Qty: 90 1RF lisinopril 20 mg tablet 20 mg PO BID Qty: 180 1RF mirtazapine 7.5 mg tablet 7.5 mg PO QHS Qty: 90 1RF cholecalciferol (vitamin D3) 62.5 mcg (2,500 unit) capsule See Rx Instructions PO .COMPLEX Qty: 90 1RF Rx Instructions: 1 capsule orally; ondansetron 8 mg tablet,disintegrating 8 mg PO BID gabapentin 100 mg capsule 100 mg PO TID PRN (Reason: shingles) cholecalciferol (vitamin D3) 125 mcg (5,000 unit) tablet 62.5 mcg PO DAILY cetirizine [24Hour Allergy] 10 mg tablet 10 mg PO DAILY PRN (Reason: rash) acetaminophen [8 Hour Pain Reliever] 650 mg tablet extended release 650 mg PO Q8H PRN (Reason: pain, mild) hydrocodone-acetaminophen 5-325 mg tablet 1 tab PO Q6H PRN PRN (Reason: pain) 3 Days Qty: 7 0RF pantoprazole 40 mg tablet,delayed release (DR/EC) 40 mg PO BID 30 Days Qty: 60 1RF latanoprost 0.005 % drops 1 drp EACH EYE QPM clonidine 0.1 mg/24 hr patch weekly 1 patch transdermal ROLON Qty: 12 1RF Discontinued nifedipine 60 mg tablet extended release 60 mg PO BID Qty: 180 1RF hydralazine 100 mg tablet 100 mg PO Q8H PRN (Reason: hypertension) Referrals / Follow Up: Jacky Morgan MD [Primary Care Provider] - Friend,DO David [Med Staff - Active Staff] - Within 1 Month Disposition Disposition (needs filled in before D/C Order can be placed): Snf Facility (4) Anemia Qualifiers: Anemia type: unspecified type Qualified Code(s): D64.9 - Anemia, unspecified
[2024-05-19] MEDS: Cholecalciferol (VIT D3) 25 MCG TABLET (1,000 UNITS) 50 MCG PO (14:04)
[2024-05-19] MEDS: Carvedilol 25 MG Tablet 50 MG PO ×2 (14:04→16:14)
[2024-05-19] MEDS: Senna/Docusate Sodium 1 Tablet 2 TABLET PO (14:05)
[2024-05-19] MEDS: amLODIPine 10 MG Tablet PO (14:05)
[2024-05-19] MEDS: Ondansetron 8 MG Tablet PO (14:06)
--- NOTE | 2024-05-19 14:11 | DS.PCM_ITS ---
Providers Date of Admission: 05/15/24 Date of Discharge: 05/19/24 Primary Care Physician: Dr. Jacky Morgan MD Consultations 05/15/24 09:12 Consult: Nephrology Routine Consulting Provider: Lizzy Richards Reason for Consult: ESRD on HD EMERGENT Consult: No Notified: Yes Date Notified: 05/15/24 Time Notified: 09:12 Method of Notification: Text 05/17/24 09:29 Consult: Cardiology Routine Consulting Provider: Kenneth Szymanski Reason for Consult: Acute on chr HFpEF, Valular HD EMERGENT Consult: No Notified: Yes Date Notified: 05/17/24 Time Notified: 09:29 Method of Notification: Verbal 05/17/24 23:50 Consult: Gastroenterology Routine Consulting Provider: [facility] Reason for Consult: gi bleed, occult positive stool EMERGENT Consult: No Notified: Yes Date Notified: 05/18/24 Time Notified: 06:55 Method of Notification: Text Reason For Visit: AE CHF Diagnosis Discharge Diagnosis (1) Acute on chronic diastolic CHF (congestive heart failure): Status: Chronic Code(s): I50.33 - Acute on chronic diastolic (congestive) heart failure (2) Pleural effusion: Status: Acute Code(s): J90 - Pleural effusion, not elsewhere classified (3) Elevated troponin: Status: Acute Code(s): R79.89 - Other specified abnormal findings of blood chemistry (4) Anemia: Status: Acute Code(s): D64.9 - Anemia, unspecified Qualifiers: Anemia type: unspecified type Qualified Code(s): D64.9 - Anemia, unspecified Plan 83-year-old female was admitted with a chief complaint of shortness of breath, hypoxia SpO2 77% on room air by EMS. After supper, she stood up in order to go to bathroom felt short of breath and almost passed out and had difficulty in breathing. 1. AE of chronic diastolic CHF; with preserved LVEF and bilateral pleural effusion and pulmonary hypertension: Patient is being admitted in PCU. Chest x- ray and CTA chest reviewed. No PE. Moderate bilateral pleural effusion and pulmonary edema. BNP elevated. Heart failure core measures including intake and output, fluid restriction less than 1500 mL, daily weight monitoring, kidney and electrolytes monitoring. Bumex increased to 1 mg IV twice daily. Incentive spirometry and Pep. Discussed with the electroneurodiagnostic technician and patient does not need dialysis today and most likely not tomorrow. Lactic acid 2.4, repeat 1 was normal, 1.1. Probably due to decreased peripheral perfusion 05/16: No shortness of breath. Respiratory status is better. Pulse ox 100% on 2 L of oxygen, wean down the oxygen. Heart rate and blood pressure are controlled. 05/17: I talked to the patient's [id number], Dr. Durand and she wanted medical secretary consult for optimization of medicine. Fertilizer Supervisor Dr. Szymanski consulted as per the patient's request. BP is 140/65 heart rate 69/min. I feel patient already on maximal tolerated medicine. 05/18: With recommendation of Dr. Szymanski, Procardia changed to amlodipine 10 mg daily. Recommended limited echo in 6 to 8 weeks for wall motion abnormality. Follow-up in cardiology office. Complain of right leg pain with muscle spasm. On Tylenol 1 g Q8 hourly. Venous duplex ordered 05/19 blood pressure slightly elevated. Patient is on amlodipine and hydralazine. Procardia XL was discontinued as mentioned above as per medical secretary recommendation. Follow-up in [place] [facility] office in 1 month 2. Mildly elevated troponin probably due to acute cardiac strain/pulmonary edema: Patient does not have chest pain pressure or tightness. Troponins 171, 418, 814. 2D echo was done and echo findings discussed with the medical secretary Dr. Dang. EF 40%, stage II diastolic dysfunction, mild to moderate concentric LVH, severe anterior apical and mid to distal septal hypokinesis to akinesis. Mild MR, mild TR RVSP 61 mm this is to moderate pulmonary hypertension. Moderate size left pleural effusion. She is on carvedilol 50 mg twice daily, home dose, hydralazine, lisinopril and Procardia XL. She is on maximal medical therapy. Lipid profile shows TG 130, LDL 69. HDL 54. Fertilizer Supervisor opinion was to follow-up medical secretary as an outpatient. 05/16: Patient used to follow some [place] medical secretary, last visited 2 years ago. She is eager to follow [place] [facility], names given. 05/19: Patient was given baby aspirin but refusing and also has low hemoglobin and platelet count. Hemoglobin 7.5. DVT prophylaxis was also discontinued before. Mild thrombocytopenia, platelet count also 128K. 3. ESRD; on HD (M-W-F) with anemia of chronic disease/CKD: Patient was evaluated by electroneurodiagnostic technician. She does not need dialysis today is more probably not tomorrow. She was accepted by [facility] for dialysis as we did not have dialysis nurse on this weekend but she does not need diuresis therefore transfer was canceled. This was done as per electroneurodiagnostic technician recommendation. 05/16: Discussed with the electroneurodiagnostic technician today. Plan is dialysis tomorrow morning 05/19: Patient is getting hemodialysis. Follow-up on electroneurodiagnostic technician. 4. Chronic severe anemia: H&H chronically low stays between 7 to to 9 g. Monitor CBC daily. If it drops less than 7 g will need PRBC transfusion. 05/16: Even after transfusion of 1 PRBC yesterday her hemoglobin is still low 7.3 did not change. 05/17: Her hemoglobin dropped to 6.4 g%. 1 unit of PRBC ordered bleeding hemodialysis. 05/18: Urine culture shows no growth. Blood culture negative for 48 hours. Hemoglobin 7.8. Platelet count 100 23K, baseline thrombocytopenia. Platelet count was about 150K in December or January 2024. Stool for occult blood positive. GI was consulted. Total 2 units of PRBC were transfused. EGD on 05/18/2024 Impressions : - Normal esophagus. - Oozing gastric ulcer with a visible vessel. Treated with a heater probe. - Chronic gastritis. Biopsied. - Mucosal variant in the duodenum. Recommendations : - Await pathology results. - Use Protonix (pantoprazole) 40 mg PO BID. -If patient continues to have pain then we can introduce liquid Carafate 1 g twice a day for 8 weeks. 05/19: Follow-up in GI office Dr. Mike in 1 month 5. Incidental thyroid Nodules: TSH normal 1.920. CTA chest shows few thyroid nodules largest in the left lobe 1.6 cm. Since the patient came for primary complaint of CHF exacerbation, not related to thyroid nodules therefore thyroid ultrasound and further workup can be done as an outpatient when patient is stable. 6. Essential Hypertension; on lisinopril, nifedipine, hydralazine, carvedilol and clonidine patch - Maintain home regimen plus give Hydralazine IV prn for systolic blood pressure > 160 mmHg. 05/18: Blood pressure is elevated 163/87. Patient on clonidine, BP parameter changed. 7. Hyperlipidemia; on atorvastatin as mentioned above 8. Chronic metastatic renal cell carcinoma status post right nephrectomy status and no gallbladder recurrence status post TURBT. History of metastatic renal cell carcinoma; status post Right nephrectomy with local recurrence in the bladder x 2; status post TURBT - Noted. other multiple comorbidities include history of shingles on valacyclovir, chronic thrombocytopenia, platelet about 100 68K, GERD, RA and degenerative osteoarthritis status post bilateral TKR and lumbar spinal stenosis DVT prophylaxis - Patient on renally-dosed Lovenox. Bilateral SCDs 05/17: Lovenox on hold because of severe anemia Discharge medication reconciliation done. Discharge follow-up instructions completed. Discharge process discussed with the patient and all questions were answered to patient's satisfaction. Follow with PCP in 1 to 2 weeks. Prescription for [place] was given total of 7 tablets Total time spent, exact 35 minutes on discharge meds reconciliation, examination, coordination of care with nurses and ancillary staff, review of imaging and blood test and discussion with the patient on follow-up instructions. Microbiology Past 72 Hours 05/16/24 07:35 Urine, Random Urine Culture - Final Culture exhibits no growth. 05/15/24 21:15 Stool Stool Occult Blood (DERICK) - Final Occult Blood Positive 05/15/24 01:23 Urine, Clean Catch Urine Culture - Final Culture exhibits no growth. 05/14/24 21:26 Blood Culture (Wb) - Arm Right Blood Culture - Preliminary No growth in 48 hours. 05/14/24 21:26 Blood Culture (Wb) - Right Hand Blood Culture - Preliminary No growth in 48 hours. Laboratory Results 05/17/24 05:01: Phosphorus 6.7 H, Magnesium 2.0 05/18/24 06:25: WBC 6.5, RBC 2.64 L, Hgb 7.8 L, Hct 24.6 L, MCV 93.2, MCH 29.5, MCHC 31.7 L, RDW Std Deviation 68.1 H, RDW Coeff of Wiliam 20.1 H, Plt Count 123 L, MPV 11.2, Immature Gran % (Auto) 0.900, Neut % (Auto) 63.1, Lymph % (Auto) 22.4, [place] % (Auto) 10.4 H, Eos % (Auto) 2.9, Baso % (Auto) 0.3, Absolute Neuts (auto) 4.1, Absolute Lymphs (auto) 1.45, Nucleated RBC % 0, Anisocytosis 1+, Sodium 140, Potassium 4.7, Chloride 108 H, Carbon Dioxide 24.0, Anion Gap 8, BUN 32 H, Creatinine 4.16 H, Estim Creat Clear Calc 7.23, Est GFR (MDRD) Af Amer 13 L, Est GFR (MDRD) Non-Af 11 L, BUN/Creatinine Ratio 7.7 L, Glucose 123 H, Calcium 8.9 Medications at Discharge Home Medications latanoprost 0.005 % eye drops 1 drp EACH EYE QPM glaucoma 09/06/23 clonidine HCl 0.1 mg tablet 0.1 mg PO Q6H PRN hypertensive emergency 11/07/23 atorvastatin 10 mg tablet 10 mg PO DAILY #90 tabs 02/11/24 carvedilol 25 mg tablet 50 mg (2 x 25 mg) PO BID #180 tabs 02/11/24 cholecalciferol (vitamin D3) 62.5 mcg (2,500 unit) capsule See Rx Instructions PO .COMPLEX #90 caps 02/11/24 handicap placard #1 ea 02/11/24 levothyroxine 25 mcg tablet 25 mcg PO DAILY thryoid #90 tabs 02/11/24 lisinopril 20 mg tablet 20 mg PO BID hypertension #180 tabs 02/11/24 mirtazapine 7.5 mg tablet 7.5 mg PO QHS #90 tabs 02/11/24 clonidine 0.1 mg/24 hr weekly transdermal patch 1 patch transdermal ROLON #12 ea 03/08/24 acetaminophen 650 mg tablet,extended release (8 Hour Pain Reliever) 650 mg PO Q8H PRN pain, mild 05/15/24 cetirizine 10 mg tablet (24Hour Allergy) 10 mg PO DAILY PRN rash 05/15/24 cholecalciferol (vitamin D3) 125 mcg (5,000 unit) tablet 62.5 mcg PO DAILY supplement 05/15/24 gabapentin 100 mg capsule 100 mg PO TID PRN shingles 05/15/24 ondansetron 8 mg disintegrating tablet 8 mg PO BID supplement 05/15/24 amlodipine 10 mg tablet 10 mg PO DAILY #0 tabs 05/19/24 hydralazine 50 mg tablet 100 mg (2 x 50 mg) PO Q8 #0 tabs 05/19/24 hydrocodone-acetaminophen 5-325mg 5mg-325mg 1 tab PO Q6H PRN PRN pain 3 days #7 tabs 05/19/24 pantoprazole 40 mg tablet,delayed release 40 mg PO BID 30 days #60 tabs 05/19/24 sennosides 8.6 mg-docusate sodium 50 mg tablet (Stimulant Laxative Plus) 2 tab PO BID #0 tabs 05/19/24 sucralfate 1 gram tablet 1 g PO BID@0700,1600 2 months #120 tabs 05/19/24 Physical Exam Narrative Please see progress symptoms same date Weight / BMI Weight Weight: 100 lb 4.965 oz Body Mass Index (BMI) 19.7 ABG / Lab / Microbiology Data 05/19/24 07:03 05/19/24 07:03 Laboratory: Laboratory Results - last 24 hr 05/19/24 07:03: WBC 6.5, RBC 2.53 L, Hgb 7.5 L, Hct 23.7 L, MCV 93.7, MCH 29.6, MCHC 31.6 L, RDW Std Deviation 66.3 H, RDW Coeff of Wiliam 19.4 H, Plt Count 128 L, MPV 11.3, Immature Gran % (Auto) 0.800, Neut % (Auto) 66.3, Lymph % (Auto) 18.2 L, [place] % (Auto) 11.4 H, Eos % (Auto) 3.1, Baso % (Auto) 0.2, Absolute Neuts (auto) 4.3, Absolute Lymphs (auto) 1.18, Nucleated RBC % 0, Platelet Estimate ADEQUATE, Hypochromasia 1+, Anisocytosis 2+, Sodium 139, Potassium 5.2 H, Chloride 105, Carbon Dioxide 25.0, Anion Gap 9, BUN 43 H, Creatinine 5.67 H, Estim Creat Clear Calc 5.31, Est GFR (MDRD) Af Amer 9 L, Est GFR (MDRD) Non-Af 8 L, BUN/Creatinine Ratio 7.6 L, Glucose 136 H, Calcium 9.0 Microbiology: Microbiology 05/16/24 07:35 Urine, Random Urine Culture - Final Culture exhibits no growth. 05/15/24 21:15 Stool Stool Occult Blood (DERICK) - Final Occult Blood Positive 05/15/24 01:23 Urine, Clean Catch Urine Culture - Final Culture exhibits no growth. 05/14/24 21:26 Blood Culture (Wb) - Arm Right Blood Culture - Preliminary No growth in 48 hours. 05/14/24 21:26 Blood Culture (Wb) - Right Hand Blood Culture - Preliminary No growth in 48 hours. 05/14/24 20:45 Mucosa - Nose SARS-CoV-2, Influenza & RSV (PCR) - Final Radiography Diagnostic Testing: Radiology Impression Venous Doppler Study 05/18/24 09:49 Interpretation Summary Deep veins of the bilateral lower extremities are patent and compressible segmentally. There is no evidence of bilateral lower extremity deep vein thrombosis. The bilateral great saphenous veins appear patent and compressible segmentally. Ordering Physician: Rafita Monzon Referring Physician: Jacky Morgan Performed By: Brittany Alexander RVT and Student D/C Instructions DC O2, CPAP, BIPAP Needs Home O2 Discharge instructions: No Meaningful Use Info Meaningful Use Meaningful Use Diagnoses (Choose all that apply): CHF CHF FLORENTINO/ARB ordered at discharge?: Yes Documented LVEF (%): 40 Ischemic Stroke Statin Dosing Therapy Reference: STATIN DOSE THERAPY REFERENCE: * Patients > 75 years receive moderate or high dose statin therapy. * Patients 75 years or YOUNGER should receive HIGH intensity statin dose unless contraindicated. You will be required to document reason for non-treatment if statin daily dose does not meet guidelines. HIGH DOSE STATIN THERAPY DAILY Atorvastatin > than or = to 40 mg Rosuvastatin > than or = to 20 mg Amlodipine + Atorvastatin > than or = to 2.5/40 mg Ezetimibe + Simvastatin 10/80 mg Simvastatin 80mg Discharge Plan Admission Admit Date/Time: 05/15/24 05:08 Attending Provider: Rafita Monzon Primary Care Provider: Jacky Morgan Consulting Providers: Philippe Grant; Lizzy Richards; Kenneth Szymanski Instructions Additional Instructions / Restrictions: Patient follows electroneurodiagnostic technician outside. Discharge Orders/Prescriptions Prescriptions: New amlodipine 10 mg Tablet 10 mg PO DAILY Qty: 0 0RF hydralazine 50 mg Tablet 100 mg PO Q8 Qty: 0 0RF sucralfate 1 gram Tablet 1 g PO BID@0700,1600 60 Days Qty: 120 0RF sennosides-docusate sodium [Stimulant Laxative Plus] 8.6-50 mg Tablet 2 tab PO BID Qty: 0 0RF Continued clonidine HCl 0.1 mg tablet 0.1 mg PO Q6H PRN (Reason: hypertensive emergency) Patient Comments: for SBP >180 (DME) handicap placard See Rx Instructions .Route .MEDSUPPLY Qty: 1 0RF Rx Instructions: Dispense one placard (one year) atorvastatin 10 mg tablet 10 mg PO DAILY Qty: 90 1RF carvedilol 25 mg tablet 50 mg PO BID Qty: 180 1RF levothyroxine 25 mcg tablet 25 mcg PO DAILY Qty: 90 1RF lisinopril 20 mg tablet 20 mg PO BID Qty: 180 1RF mirtazapine 7.5 mg tablet 7.5 mg PO QHS Qty: 90 1RF cholecalciferol (vitamin D3) 62.5 mcg (2,500 unit) capsule See Rx Instructions PO .COMPLEX Qty: 90 1RF Rx Instructions: 1 capsule orally; ondansetron 8 mg tablet,disintegrating 8 mg PO BID gabapentin 100 mg capsule 100 mg PO TID PRN (Reason: shingles) cholecalciferol (vitamin D3) 125 mcg (5,000 unit) tablet 62.5 mcg PO DAILY cetirizine [24Hour Allergy] 10 mg tablet 10 mg PO DAILY PRN (Reason: rash) acetaminophen [8 Hour Pain Reliever] 650 mg tablet extended release 650 mg PO Q8H PRN (Reason: pain, mild) hydrocodone-acetaminophen 5-325 mg tablet 1 tab PO Q6H PRN PRN (Reason: pain) 3 Days Qty: 7 0RF pantoprazole 40 mg tablet,delayed release (DR/EC) 40 mg PO BID 30 Days Qty: 60 1RF latanoprost 0.005 % drops 1 drp EACH EYE QPM clonidine 0.1 mg/24 hr patch weekly 1 patch transdermal ROLON Qty: 12 1RF Discontinued nifedipine 60 mg tablet extended release 60 mg PO BID Qty: 180 1RF hydralazine 100 mg tablet 100 mg PO Q8H PRN (Reason: hypertension) Referrals / Follow Up: Jacky Morgan MD [Primary Care Provider] - David Mike DO [Med Staff - Active Staff] - Within 1 Month Disposition Disposition (needs filled in before D/C Order can be placed): [facility] Charges/Coding Visit Charges Inpatient E&M: 05737 Disch Hosp >30min
--- NOTE | 2024-05-19 14:41 | CASEMGMT ---
Discharge orders, signed med list, and transport time sent to [facility]. Physicians will transport patient by wheelchair at 4:30p. Nursing, SW, and pt son (Jabier) updated. Chiara Hopkins DC Planning Asst.
--- NOTE | 2024-05-19 16:06 | NURSING ---
Report called to nurse Armendariz for pt to be d/c to [facility].
== END 2024-05-19 20:45 | disposition skilled nursing facility (03) | DRG 280 ==
LOC: ED 05-15 01:03 → PCU 05-15 05:27
PROVIDERS: Internal Medicine Gastroenterology; Admitting Provider Internal Medicine; Emergency Provider Emergency Medicine; PCP Internal Medicine; Visit Provider Internal Medicine
PROC: 0DJ08ZZ Inspection of Upper Intestinal Tract, Via Natural or Artificial Opening Endoscopic (ICD-10-PCS; CPT 43235; principal; 2024-05-18 11:55)
DX: I13.2 Hypertensive heart and chronic kidney disease with heart failure and with stage 5 chronic kidney disease, or end stage renal disease (principal); I21.A1 Myocardial infarction type 2; K25.4 Chronic or unspecified gastric ulcer with hemorrhage; J96.01 Acute respiratory failure with hypoxia; I50.43 Acute on chronic combined systolic (congestive) and diastolic (congestive) heart failure; N18.6 End stage renal disease; E87.20 Acidosis, unspecified; D62 Acute posthemorrhagic anemia; J81.1 Chronic pulmonary edema; J90 Pleural effusion, not elsewhere classified; D63.1 Anemia in chronic kidney disease; D69.6 Thrombocytopenia, unspecified; E11.22 Type 2 diabetes mellitus with diabetic chronic kidney disease; I27.20 Pulmonary hypertension, unspecified; E04.2 Nontoxic multinodular goiter; E03.9 Hypothyroidism, unspecified; M19.90 Unspecified osteoarthritis, unspecified site; E78.00 Pure hypercholesterolemia, unspecified; K21.9 Gastro-esophageal reflux disease without esophagitis; Z99.2 Dependence on renal dialysis; K29.50 Unspecified chronic gastritis without bleeding; K31.89 Other diseases of stomach and duodenum; Z90.5 Acquired absence of kidney; R79.89 Other specified abnormal findings of blood chemistry; R31.9 Hematuria, unspecified; Z79.890 Hormone replacement therapy; Z79.899 Other long term (current) drug therapy; Z85.51 Personal history of malignant neoplasm of bladder; Z96.659 Presence of unspecified artificial knee joint; Z90.710 Acquired absence of both cervix and uterus; R42 Dizziness and giddiness; B02.9 Zoster without complications; Z85.528 Personal history of other malignant neoplasm of kidney
CPT/HCPCS: 36415; 36600; 51702; 71045; 71046; 71275; 80048; 80061; 81001; 82274; 82803; 83605; 83735; 83880; 84100; 84443; 84484; 85014; 85018; 85025; 85610; 85730; 86850; 86900; 86901; 87040; 87086; 87631; 88305; 88312; 88341; 88342; 90937; 93005; 93306; 93970; 94640; 97110; 97162; 97166; 97530; 97802; 99285; P9016; Q9967; A4216; G0257; J2405

== ENCOUNTER 2024-05-25 11:22 | Outpatient (CLI) | payer MEDICARE, OTHER, SELFPAY ==
[2024-05-25 11:32] VITALS: BP 180/50; PULSE 75; RESP 14; TEMP 35.9; O2SAT 100; BMI 20.1
[2024-05-25 12:43] VITALS: BP 186/53; PULSE 72; RESP 16; TEMP 36.6; O2SAT 100
[2024-05-25 13:50] VITALS: BP 197/69; PULSE 82; RESP 14; TEMP 36.3; O2SAT 100
[2024-05-25 14:40] VITALS: BP 190/70
== END 2024-05-25 23:59 | disposition home or self-care (01) ==
LOC: MEDOUTP 11:23
PROVIDERS: PCP Internal Medicine; Referring Provider Nurse Practitioner Adult Health; Visit Provider Nurse Practitioner Adult Health
DX: D64.9 Anemia, unspecified (principal)
CPT/HCPCS: 36415; 36430; 86850; 86900; 86901; P9016; A4216

== ENCOUNTER 2024-06-04 07:56 | Outpatient (CLI) | payer MEDICARE, OTHER, SELFPAY ==
[2024-06-04] MEDS: 0.9% NaCl Peripheral Flush Adult/Peds IV (08:05)
[2024-06-04 08:33] VITALS: BP 187/81; PULSE 84; RESP 16; TEMP 36.7; O2SAT 100; BMI 20.2
[2024-06-04 09:03] VITALS: BP 169/42; PULSE 73; RESP 16; TEMP 36.2
[2024-06-04 10:03] VITALS: BP 175/74; PULSE 78; RESP 16; TEMP 36.7
== END 2024-06-04 23:59 | disposition home or self-care (01) ==
LOC: MEDOUTP 07:58
PROVIDERS: PCP Internal Medicine; Referring Provider Nurse Practitioner Adult Health; Visit Provider Nurse Practitioner Adult Health
DX: D64.9 Anemia, unspecified (principal)
CPT/HCPCS: 36430; 86850; 86900; 86901; P9016; A4216

== ENCOUNTER 2024-06-16 07:55 | Outpatient (CLI) | payer MEDICARE, OTHER, SELFPAY ==
[2024-06-16 08:07] VITALS: BP 167/66; PULSE 77; RESP 16; TEMP 36.8; O2SAT 100
[2024-06-16 08:44] VITALS: BP 142/47; PULSE 75; RESP 16; TEMP 36.6; O2SAT 100
[2024-06-16 09:44] VITALS: BP 146/61; PULSE 73; RESP 16; TEMP 36.5; O2SAT 100
== END 2024-06-16 23:59 | disposition home or self-care (01) ==
LOC: MEDOUTP 07:58
PROVIDERS: PCP Internal Medicine; Referring Provider Nurse Practitioner Adult Health; Visit Provider Nurse Practitioner Adult Health
DX: D64.9 Anemia, unspecified (principal)
CPT/HCPCS: 36430; 86850; 86900; 86901; P9016; A4216

== ENCOUNTER → 2024-06-28 | Outpatient (REF) | payer MEDICARE, OTHER, SELFPAY ==
[2024-06-28 07:59] LABS: Hemoglobin 6.8 g/dL (12.0-15.0); Mean Corp Hgb Conc 30.9 g/dL (32-36); Mean Corpuscular Volume 96.9 fL (81-99); Mean Platelet Vol. 11.7 fl (6.2-12.0); Platelet Count 110 K/mm3 (150-450); RBC Distribution Width CV 16.5 % (11.6-14.6); RBC Distribution Width SD 58.8 fl (35.1-43.9); Red Blood Count 2.27 M/mm3 (4.2-5.4); White Blood Count 4.8 K/mm3 (4.4-11.0)
[2024-06-28 08:33] LABS: Anion Gap 12 (5-15); BUN 55 mg/dL (4-19); Carbon Dioxide 24.5 mmol/L (22.0-29.0); Chloride 102 mmol/L (96-108); Creatinine, Serum 6.16 mg/dL (0.70-1.20); EST Glomerular Filtration Rate 6 (>60); Glucose 95 mg/dL (70-99); Potassium 5.3 mmol/L (3.3-5.1); Sodium Level 139 mmol/L (133-145)
== END ==
LOC: OLS.WHLTCC 05:00
PROVIDERS: PCP Internal Medicine; Visit Provider Internal Medicine
DX: N18.6 End stage renal disease (principal); I50.43 Acute on chronic combined systolic (congestive) and diastolic (congestive) heart failure; D64.9 Anemia, unspecified
CPT/HCPCS: 36415; 80048; 85027

== ENCOUNTER 2024-06-30 07:55 | Outpatient (CLI) | payer MEDICARE, OTHER, SELFPAY ==
[2024-06-30 08:13] VITALS: BP 167/57; PULSE 77; RESP 16; TEMP 36.3; O2SAT 99; BMI 20.5
[2024-06-30 09:38] VITALS: BP 166/57; PULSE 73; RESP 16; TEMP 36.3; O2SAT 99
[2024-06-30 10:38] VITALS: BP 155/59; PULSE 71; RESP 16; TEMP 36.3; O2SAT 98
[2024-06-30 10:56] VITALS: BP 159/55; PULSE 72; RESP 16; TEMP 36.2
== END 2024-06-30 23:59 | disposition home or self-care (01) ==
LOC: MEDOUTP 07:56
PROVIDERS: PCP Internal Medicine; Referring Provider Nurse Practitioner Adult Health; Visit Provider Nurse Practitioner Adult Health
DX: D64.9 Anemia, unspecified (principal)
CPT/HCPCS: 36430; 86850; 86900; 86901; P9016; A4216

== ENCOUNTER → 2024-07-01 | Outpatient (REF) | payer MEDICARE, OTHER, SELFPAY ==
[2024-07-01 09:00] LABS: Absolute Lymphocyte Count 1.26 X10^3/uL (0.83-4.51); Basophil# 0.03 X10^3/uL; Basophil% 0.6 % (0-1); Eosinophil# 0.21 X10^3/uL; Eosinophils% 4.1 % (0-5); Hematocrit 27.2 % (37-47); Hemoglobin 8.5 g/dL (12.0-15.0); Lymphocyte # 1.26 X10^3/ul (0.83-4.51); Lymphocyte % 24.9 % (19-41); Mean Corp Hgb Conc 31.3 g/dL (32-36); Mean Corpuscular Hgb 29.8 pg (27.0-32.0); Mean Corpuscular Volume 95.4 fL (81-99); Mean Platelet Vol. 12.7 fl (6.2-12.0); Monocyte# 0.49 X10^3/uL; Monocyte% 9.7 % (0-10); NRBC Flagged by Analyzer 1.2 % (0-5); Neutrophil # 2.95 X10^3/uL (2.7-7.7); Neutrophil % 58.1 % (47-70); POSITIVE COUNT YES; RBC Distribution Width CV 16.1 % (11.6-14.6); Red Blood Count 2.85 M/mm3 (4.2-5.4); White Blood Count 5.1 K/mm3 (4.4-11.0)
[2024-07-01 09:19] LABS: Differential Indicated SCAN CRITERIA MET
[2024-07-01 09:20] LABS: Platelet Estimate SLT DEC (ADEQ); Polychromasia RARE
== END ==
LOC: OLS.WHLTCC 04:00
PROVIDERS: PCP Internal Medicine; Referring Provider Internal Medicine; Visit Provider Internal Medicine
DX: D64.9 Anemia, unspecified (principal); I50.43 Acute on chronic combined systolic (congestive) and diastolic (congestive) heart failure
CPT/HCPCS: 36415; 85025

== ENCOUNTER → 2024-07-05 | Outpatient (REF) | payer MEDICARE, OTHER, SELFPAY ==
[2024-07-05 06:21] LABS: Hematocrit 24.9 % (37-47); Hemoglobin 7.6 g/dL (12.0-15.0); Mean Corp Hgb Conc 30.5 g/dL (32-36); Mean Corpuscular Hgb 29.8 pg (27.0-32.0); Mean Corpuscular Volume 97.6 fL (81-99); Mean Platelet Vol. 11.3 fl (6.2-12.0); Platelet Count 140 K/mm3 (150-450); RBC Distribution Width CV 16.6 % (11.6-14.6); RBC Distribution Width SD 58.3 fl (35.1-43.9); Red Blood Count 2.55 M/mm3 (4.2-5.4); White Blood Count 4.9 K/mm3 (4.4-11.0)
[2024-07-05 06:37] LABS: Anion Gap 12 (5-15); BUN 48 mg/dL (4-19); BUN/Creat Ratio 7.5 RATIO (10-20); Carbon Dioxide 25.6 mmol/L (21.0-32.0); Chloride 101 mmol/L (98-108); Creatinine, Serum 6.44 mg/dL (0.70-1.20); EST Glomerular Filtration Rate 6 (>60); Glucose 135 mg/dL (70-99); Potassium 5.6 mmol/L (3.3-5.1); Sodium Level 139 mmol/L (133-145)
== END ==
LOC: OLS.WHLTCC 05:00
PROVIDERS: PCP Internal Medicine; Visit Provider Internal Medicine
DX: N18.6 End stage renal disease (principal); I50.43 Acute on chronic combined systolic (congestive) and diastolic (congestive) heart failure; D64.9 Anemia, unspecified
CPT/HCPCS: 36415; 80048; 85027

== ENCOUNTER → 2024-07-12 | Outpatient (REF) | payer MEDICARE, OTHER, SELFPAY ==
[2024-07-12 08:05] LABS: Hematocrit 25.5 % (37-47); Mean Corp Hgb Conc 31.4 g/dL (32-36); Mean Corpuscular Hgb 29.6 pg (27.0-32.0); Mean Corpuscular Volume 94.4 fL (81-99); Mean Platelet Vol. 11.7 fl (6.2-12.0); Platelet Count 122 K/mm3 (150-450); RBC Distribution Width CV 15.4 % (11.6-14.6); RBC Distribution Width SD 53.4 fl (35.1-43.9); White Blood Count 3.3 K/mm3 (4.4-11.0)
[2024-07-12 13:59] LABS: Anion Gap 11 (5-15); BUN 46 mg/dL (4-19); BUN/Creat Ratio 6.9 RATIO (10-20); Calcium,Total 9.1 mg/dL (7.6-11.0); Carbon Dioxide 24.2 mmol/L (21.0-32.0); Chloride 100 mmol/L (98-108); Creatinine, Serum 6.76 mg/dL (0.70-1.20); EST Glomerular Filtration Rate 6 (>60); Glucose 91 mg/dL (70-99); Potassium 5.3 mmol/L (3.3-5.1); Sodium Level 136 mmol/L (133-145)
== END ==
LOC: OLS.WHLTCC 05:00
PROVIDERS: PCP Internal Medicine; Visit Provider Internal Medicine
DX: N18.6 End stage renal disease (principal); I50.43 Acute on chronic combined systolic (congestive) and diastolic (congestive) heart failure; D64.9 Anemia, unspecified
CPT/HCPCS: 36415; 80048; 85027

== ENCOUNTER → 2024-07-19 | Outpatient (REF) | payer MEDICARE, OTHER, SELFPAY ==
[2024-07-19 09:09] LABS: Hemoglobin 8.1 g/dL (12.0-15.0); Mean Corp Hgb Conc 31.2 g/dL (32-36); Mean Corpuscular Hgb 29.8 pg (27.0-32.0); Mean Corpuscular Volume 95.6 fL (81-99); Mean Platelet Vol. 11.8 fl (6.2-12.0); Platelet Count 140 K/mm3 (150-450); RBC Distribution Width CV 16.2 % (11.6-14.6); RBC Distribution Width SD 55.4 fl (35.1-43.9); Red Blood Count 2.72 M/mm3 (4.2-5.4)
[2024-07-19 14:52] LABS: Anion Gap 15 (5-15); BUN 59 mg/dL (4-19); BUN/Creat Ratio 9.1 RATIO (10-20); Calcium,Total 9.2 mg/dL (7.6-11.0); Carbon Dioxide 22.9 mmol/L (21.0-32.0); Chloride 97 mmol/L (98-108); Creatinine, Serum 6.44 mg/dL (0.70-1.20); EST Glomerular Filtration Rate 6 (>60); Glucose 157 mg/dL (70-99); Potassium 4.6 mmol/L (3.3-5.1); Sodium Level 135 mmol/L (133-145)
== END ==
LOC: OLS.WHLTCC 05:00
PROVIDERS: PCP Internal Medicine; Visit Provider Internal Medicine
DX: N18.6 End stage renal disease (principal)
CPT/HCPCS: 36415; 80048; 85027

== ENCOUNTER 2024-08-20 18:12 | Outpatient (CLI) | payer MEDICARE, OTHER, SELFPAY ==
[2024-08-20 19:22] LABS: Absolute Lymphocyte Count 0.99 X10^3/uL (0.83-4.51); Absolute Neutrophil Count 2.8 X10^3/uL (2.0-7.7); Basophil# 0.02 X10^3/uL; Basophil% 0.5 % (0-1); Eosinophils% 4.5 % (0-5); Hematocrit 28.8 % (37-47); Lymphocyte # 0.99 X10^3/ul (0.83-4.51); Lymphocyte % 22.3 % (19-41); Mean Corp Hgb Conc 31.3 g/dL (32-36); Mean Corpuscular Hgb 28.9 pg (27.0-32.0); Mean Corpuscular Volume 92.6 fL (81-99); Mean Platelet Vol. 11.6 fl (6.2-12.0); NRBC Flagged by Analyzer 0 % (0-5); Neutrophil # 2.75 X10^3/uL (2.7-7.7); Neutrophil % 61.9 % (47-70); Platelet Count 136 K/mm3 (150-450); RBC Distribution Width CV 17.4 % (11.6-14.6); RBC Distribution Width SD 59.7 fl (35.1-43.9); Red Blood Count 3.11 M/mm3 (4.2-5.4); White Blood Count 4.4 K/mm3 (4.4-11.0)
[2024-08-20 20:20] LABS: BUN 11 mg/dL (4-19)
[2024-08-20 20:39] LABS: Hepatitis B Surface Antigen Nonreactive (Nonreactive)
[2024-08-20 20:41] LABS: BUN 53 mg/dL (4-19); Potassium 5.9 mmol/L (3.3-5.1)
== END 2024-08-20 23:59 | disposition home or self-care (01) ==
LOC: LABSPEC 18:12
PROVIDERS: PCP Internal Medicine; Visit Provider Internal Medicine Nephrology
DX: N18.6 End stage renal disease (principal); Z99.2 Dependence on renal dialysis
CPT/HCPCS: 84132; 84520; 85025; 87340

== ENCOUNTER 2024-10-16 12:12 | Emergency (ER) | payer MEDICARE, OTHER, SELFPAY ==
[2024-10-16 12:13] VITALS: BP 210/81
[2024-10-16 12:14] VITALS: BP 210/66; PULSE 77; RESP 14; TEMP 36.6; O2SAT 98
--- NOTE | 2024-10-16 12:21 | RAD_ITS ---
PROCEDURE: FOOT MIN 3 VIEWS 10/16/2024 REASON FOR EXAM: INJURY/PAIN TECHNIQUE: FOOT MIN 3 VIEWS COMPARISON: None. FINDINGS: Bones: Acute, mildly distracted fracture deformity of the base of the 4th proximal phalanx. Diffuse osteopenia. Joints: There is intra-articular extension of the fracture into the 4th MTP joint. Moderate degenerative changes throughout the left foot. Soft tissues: Soft tissue swelling. Other: No radiopaque foreign body. RAD/Foot min 3 Views IMPRESSION: Acute fracture of the left 4th proximal phalanx with intra-articular joint exte nsion. Reading Location: [id number]
--- NOTE | 2024-10-16 12:21 | RAD_ITS ---
PROCEDURE: KNEE 1 OR 2 VIEWS 10/16/2024 REASON FOR EXAM: INJURY/PAIN Initial encounter TECHNIQUE: KNEE 1 OR 2 VIEWS COMPARISON: None FINDINGS: Bones: Knee arthroplasty hardware is well-positioned and intact. Joints: No obvious hardware complication. Effusion: Small Soft tissues: Soft tissue swelling medially Other: RAD/Knee 1 or 2 Views IMPRESSION: No acute osseous injury. Reading [facility]
--- NOTE | 2024-10-16 12:21 | EX.ED.DYSGE1 ---
HPI History of Present Illness Chief Complaint: Lower Extremity Injury Detail of Chief Complaint: Injury left foot and knee and abrasion bridge of the nose Informant: patient Onset/Context/Timing Onset: Yesterday Context: Sudden Onset Timing: Continuous Quality: Pain Location: Left knee and foot Current Severity: Mild Maximum Severity: Moderate Worsened by: Weightbearing Relieved by: Nothing Associated Symptoms Associated Symptoms: Abrasion nose Narrative Narrative: Patient is patient is an 83-year-old woman with multimedical problems who presents status post fall. She was in her chairlift. She felt her she denies head trauma. She denies loss of consciousness. She is not amnestic. She denies being dazed. Denies neck pain She complains of worsening pain of her left knee and she is not on anticoagulant. She denies headache, double vision blurred vision loss of vision. She denies paresthesia, anesthesia or motor weakness upper or lower extremity. Prior similar symptoms: No Recent Illness/Hospitalization: No PFSH PFSH Medical History ESRD on dialysis Bladder cancer History of echocardiogram Wears glasses Post-menopausal Cancer Anxiety History of steroid therapy Walker as ambulation aid Low iron High cholesterol Injury of head and neck Syncope Falls Non-smoker Heart murmur Mitral regurgitation Hypothyroidism Vertigo Cardiomyopathy Sjogren syndrome with inflammatory arthritis Arthritis Hyperlipidemia Type 2 diabetes mellitus CKD (chronic kidney disease) stage 5, GFR less than 15 ml/min Bilateral lower extremity edema Macular degeneration Lumbar spinal stenosis Glaucoma Heart failure Osteoporosis Thyroid disease Gastric reflux Hypertension Hx of fracture of wrist Rheumatoid arthritis Kidney failure Cancer Anemia Home Medications ?Medication ?Instructions ?Recorded ?Last Taken ?Type latanoprost 0.005 % eye drops 1 drp EACH EYE QPM glaucoma 09/06/23 05/14/24 History clonidine HCl 0.1 mg tablet 0.1 mg PO Q6H PRN hypertensive 11/07/23 Unknown History emergency atorvastatin 10 mg tablet 10 mg PO DAILY #90 tabs 02/11/24 05/14/24 Rx carvedilol 25 mg tablet 50 mg (2 x 25 mg) PO BID #180 tabs 02/11/24 05/14/24 Rx cholecalciferol (vitamin D3) 62.5 See Rx Instructions PO .COMPLEX 02/11/24 Unknown Rx mcg (2,500 unit) capsule #90 caps handicap placard #1 ea 02/11/24 Unknown Rx levothyroxine 25 mcg tablet 25 mcg PO DAILY thryoid #90 tabs 02/11/24 05/14/24 Rx lisinopril 20 mg tablet 20 mg PO BID hypertension #180 tabs 02/11/24 05/14/24 Rx mirtazapine 7.5 mg tablet 7.5 mg PO QHS #90 tabs 02/11/24 05/14/24 Rx clonidine 0.1 mg/24 hr weekly 1 patch transdermal ROLON #12 ea 03/08/24 05/09/24 Rx transdermal patch acetaminophen 650 mg 650 mg PO Q8H PRN pain, mild 05/15/24 Unknown History tablet,extended release (8 Hour Pain Reliever) cetirizine 10 mg tablet (24Hour 10 mg PO DAILY PRN rash 05/15/24 Unknown History Allergy) cholecalciferol (vitamin D3) 125 62.5 mcg PO DAILY supplement 05/15/24 05/14/24 History mcg (5,000 unit) tablet gabapentin 100 mg capsule 100 mg PO TID PRN shingles 05/15/24 05/14/24 History ondansetron 8 mg disintegrating 8 mg PO BID supplement 05/15/24 05/14/24 History tablet amlodipine 10 mg tablet 10 mg PO DAILY #0 tabs 05/19/24 Unknown Rx hydralazine 50 mg tablet 100 mg (2 x 50 mg) PO Q8 #0 tabs 05/19/24 Unknown Rx pantoprazole 40 mg tablet,delayed 40 mg PO BID 30 days #60 tabs 05/19/24 05/14/24 Rx release sennosides 8.6 mg-docusate sodium 2 tab PO BID #0 tabs 05/19/24 Unknown Rx 50 mg tablet (Stimulant Laxative Plus) sucralfate 1 gram tablet 1 g PO BID@0700,1600 2 months #120 05/19/24 Unknown Rx tabs clotrimazole 10 mg [place] 10 mg mucous membrane TID 10 days 10/07/24 Unknown Rx #30 tabs fluconazole 100 mg tablet 100 mg PO QDAY #14 tabs 10/07/24 Unknown Rx (Diflucan) hydrocodone-acetaminophen 5-325mg 1 tab PO Q6H PRN PRN Pain 3 days 10/16/24 Unknown Rx 5mg-325mg #10 TABLETS Allergy/AdvReac Type Severity Reaction Status Date / Time adalimumab (From Humira) Allergy Hives Verified 10/16/24 12:13 Family History Mother Heart disease Hypertension Osteoporosis Father CVA (cerebral vascular accident) Hypertension Surgical History History of surgery Hx of esophagogastroduodenoscopy H/O transurethral resection of bladder tumor (TURBT) Hx of colonoscopy S/P total knee arthroplasty S/P vein stripping S/P partial hysterectomy History of bladder surgery History of nephrectomy Social History household members: family Smoking Status: Never smoker alcohol intake: never substance use type: does not use ROS ROS ED Constitutional Constitutional ED: Denies chills, fever(s) or subjective Eyes Eyes: Denies blurry vision, change in vision or diplopia Cardiovascular Cardiovascular: Denies chest pain or palpitations Respiratory/Chest Respiratory/Chest: Denies cough, dyspnea or dyspnea on exertion Gastrointestinal Gastrointestinal: Denies nausea or vomiting Genitourinary Genitourinary ED: Reports other Details: Does not make urine. Musculoskeletal Musculoskeletal: Denies back pain or neck pain Integumentary Reports Abrasions; Denies rash Neurologic Neurologic: Denies headache(s) or paresthesias Hematologic/Lymphatic Hematologic/Lymphatic: Reports systems reviewed and no addt'l complaints, except as documented EXAM Physical Exam Const Vital Signs: 10/16/24 12:13 10/16/24 12:14 10/16/24 12:30 Temperature 98 F Temperature Source Temporal Pulse Rate 77 70 Respiratory Rate 14 12 Blood Pressure 210/81 H 210/66 H 208/86 H Blood Pressure Mean 124 114 126 Pulse Ox 98 99 Oxygen Delivery Method Room Air Positive well nourished and well developed General Appearance ED: well developed and NAD; Negative for cyanotic or diaphoretic HEENT Reports moist mucous membranes HEENT Narrative: Head is atraumatic, cephalic. Patient does have abrasion bridge of the nose. Ears normal. Nares patent. No septal deviation hematoma. Eyes PERRL and EOMs intact bilaterally General Eye ED: Negative for pale conjunctiva or scleral icterus Neck no lymphadenopathy, supple and no JVD Neck Narrative: Vas-Cath noted right subclavian area Resp normal respiratory effort and clear to auscultation bilaterally Cardio regular rate, regular rhythm, S1 normal heart sound, S2 normal heart sound and no murmurs GI normal to inspection, nondistended, normoactive bowel sounds, non-tender and non-distended; Negative for hepatosplenomegaly GI Narrative: No pain outpatient the pelvis i.e. iliac wing, ischial tuberosities or pubic symphysis. Extremity Extremity Narrative: There is swelling the left knee. Scarred due to total knee arthroplasty many years ago. There may be a small effusion. She is able to flex and extend. There is no laxity with varus valgus stress testing. Examination the ankle reveals some mild edema. There is no tenderness over the lateral medial malleolus. Is no pain ovation of the deltoid ligament, anterior calcaneofibular ligament or the anterior talofibular ligament. She has ecchymosis swelling and tenderness over the proximal phalanx of the 4th and 5th left toe. Neuro oriented x3 and CN's II-XII intact bilaterally Sensorium / Orientation: alert Psych mental status grossly normal Skin Skin Narrative: Bruising and abrasion as previously described MDM MDM MDM Narrative Medical decision making narrative: X-ray of the foot and knee were obtained to evaluate for contusion versus fracture. Since patient did not hit her head did not have loss conscious not amnestic as a normal nonfocal neurologic exam imaging of the head was not obtained and send she has no neck pain imaging the neck was not indicated. Patient was offered pain medicine. She states she would appreciate pain medicine. She was ordered [employer]. Radiography Chest X-Ray - ED: 2 View (2 view x-ray of the knee with independent review interpreted by me at 1252 as negative for any acute pathology. There is evidence of atherosclerotic disease with calcification of the distal femoral artery and popliteal artery. She is status post total knee arthroplasty. There are some degenerativ) and Read by ED Physician (Three-view x-ray of the foot reveals a comminuted intra-articular fracture proximal phalanx MTP joint) Treatment and Re-Evaluation :: Will have nurse renuka tape fourth to the third toe. Patient and consulting database administrator were informed of results. Will discharge to home on pain medicine. Discharge Plan Triage Chief Complaint: Lower Extremity Injury ED Provider: Marrero,Masood Dx/Rx/DC Orders Clinical Impression: Closed fracture of proximal phalanx of toe of left foot, Anemia, Hypertension, Type 2 diabetes mellitus, ESRD on dialysis, Metastatic renal cell carcinoma, Contusion of knee, left, Abrasion of nose, Injury due to fall Instructions: ED Abrasion, ED Contusion, Lower Extremity, ED Fracture, Toe, Closed Prescriptions: New hydrocodone-acetaminophen 5-325 mg tablet 1 tab PO Q6H PRN PRN (Reason: Pain) 3 Days Qty: 10 0RF No Action clonidine HCl 0.1 mg tablet 0.1 mg PO Q6H PRN (Reason: hypertensive emergency) Patient Comments: for SBP >180 (DME) handicap placard See Rx Instructions .Route .MEDSUPPLY Qty: 1 0RF Rx Instructions: Dispense one placard (one year) atorvastatin 10 mg tablet 10 mg PO DAILY Qty: 90 1RF carvedilol 25 mg tablet 50 mg PO BID Qty: 180 1RF levothyroxine 25 mcg tablet 25 mcg PO DAILY Qty: 90 1RF lisinopril 20 mg tablet 20 mg PO BID Qty: 180 1RF mirtazapine 7.5 mg tablet 7.5 mg PO QHS Qty: 90 1RF cholecalciferol (vitamin D3) 62.5 mcg (2,500 unit) capsule See Rx Instructions PO .COMPLEX Qty: 90 1RF Rx Instructions: 1 capsule orally; fluconazole [Diflucan] 100 mg tablet 100 mg PO QDAY Qty: 14 0RF clotrimazole 10 mg [place] 10 mg mucous membrane TID 10 Days Qty: 30 0RF ondansetron 8 mg tablet,disintegrating 8 mg PO BID gabapentin 100 mg capsule 100 mg PO TID PRN (Reason: shingles) cholecalciferol (vitamin D3) 125 mcg (5,000 unit) tablet 62.5 mcg PO DAILY cetirizine [24Hour Allergy] 10 mg tablet 10 mg PO DAILY PRN (Reason: rash) acetaminophen [8 Hour Pain Reliever] 650 mg tablet extended release 650 mg PO Q8H PRN (Reason: pain, mild) amlodipine 10 mg Tablet 10 mg PO DAILY Qty: 0 0RF hydralazine 50 mg Tablet 100 mg PO Q8 Qty: 0 0RF sucralfate 1 gram Tablet 1 g PO BID@0700,1600 60 Days Qty: 120 0RF sennosides-docusate sodium [Stimulant Laxative Plus] 8.6-50 mg Tablet 2 tab PO BID Qty: 0 0RF pantoprazole 40 mg tablet,delayed release (DR/EC) 40 mg PO BID 30 Days Qty: 60 1RF latanoprost 0.005 % drops 1 drp EACH EYE QPM clonidine 0.1 mg/24 hr patch weekly 1 patch transdermal ROLON Qty: 12 1RF Primary Care Provider: Jacky Morgan Referrals: Jacky Morgan MD [Primary Care Provider] - Print Language: Korean Disposition Disposition: Home, Self Care
[2024-10-16] MEDS: HYDROcodone Bitartrate/Apap 5/325 Tablet PO (12:26)
[2024-10-16 12:27] VITALS: BMI 20.9
[2024-10-16 12:30] VITALS: BP 208/86; PULSE 70; RESP 12; O2SAT 99
--- OUTSIDE RECORDS SUMMARY | 2024-10-16 13:00 | XMS RPT_ITS | CCD ---
Author Organization [facility] ion [facility] Care Team Providers Care Floral Clerk Name Role Phone KIRILL GAVIRIA, [facility] Physicia n Jessica Steiner Unavailable Unavailable Kirill GAVIRIA, [facility] er Efrain Cooper MD Unavailable [phone] Eli 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MauricioShasta Unavailable Eli 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VIVEK, Shasta Unavailable Cole BAUER, Blair Unavailable KIRILL GAVIRIA, [facility] Physicia n Kirill GAVIRIA [facility] er Efrain Cooper MD Unavailable [facility] 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Mauricio DOYLEine Unavailable [facility] 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VIVEK Shasta Unavailable Blair Galvan RN Unavailable LORRIE MCKNIGHT MD Attending Unavailable KIRILL GAVIRIA, [facility] Buzz ROY MD, [facility] LORRIE Meza MD Attending Unavailable LORRIE MCKNIGHT MD Attending Unavailable KIRILL GAVIRIA, [facility] Buzz ROY MD, [facility] LORRIE Meza MD Attending Unavailable KIRILL GAVIRIA, [facility] Buzz MCKNIGHT MD, LORRIE Rapp Attending Shailesh MCKNIGHT MD, LORRIE Rapp Consulting JERI Howard MD Attending Shailesh ROY MD, [facility] Adeolava rita TERRELL MD., DR. ALEXI Apodaca Admitting Unav deana LAWSON MD, FABIAN Consulting Shailesh MCKNIGHT MD, LORRIE Rapp Attending Unavailable KIRILL GAVIRIA, [facility] Unava rita MCKNIGHT MD, LORRIE Rapp Attending Unavailable KIRILL GAVIRIA, [facility] Unava rita MCKNIGHT MD, LORRIE Rapp Attending Unavailable KIRILL GAVIRIA, [facility] Unava rita MCKNIGHT MD, LORRIE Rapp Attending Unavailable KIRILL GAVIRIA, [facility] Unava rita ROY MD, [facility] Unava rita MCKNIGHT MD, LORRIE Rapp Attending Unavailable KIRILL GAVIRIA, [facility] Unava rita MCKNIGHT MD, LORRIE Rapp Attending Unavailable KIRILL GAVIIRA, [facility] Unava rita MCKNIGHT MD, LORRIE Rapp Attending Unavailable KIRILL GAVIRIA, [facility] Unava rita MCKNIGHT MD, LORRIE Rapp Attending Unavailable KIRILL GAVIRIA, [facility] Unava rita TERRELL MD., DR. ALEXI Apodaca Attending Adeolav deana ROY MD, [facility] Unava ilsanchez MCKNIGHT MD, LORRIE Rapp Attending Shailesh MCKNIGHT MD, LORRIE Rapp Attending Unavailable KIRILL GAVIRIA, [facility] Unava rita MCKNIGHT MD, LORRIE Rapp Attending Shailesh ROY MD, [facility] Unava rita ROY MD, [facility] Unava rita ROY MD, [facility] Attending Adeolava rita ROY MD, [facility] Unava ilsanchez ROY MD, [facility] Attending Unava rita PEOPLES MD, YOVANI Kowalski Consulting Shailesh MCKNIGHT MD, LORRIE Rapp Attending Unavailable KIRILL GAVIRIA, [facility] Unava rita ROY MD, [facility] Consulting Unava rita MCKNIGHT MD, LORRIE Rapp Attending Unavailable KIRILL GAVIRIA, [facility] Unava rita ROY MD, [facility] Primary [facility] Unava rita MCKNIGHT MD., SAMIR M Attending Shailesh ROY MD, [facility] Unava ilsanchez GALLEGO MD, ADELA Attending Unavailab rasheed ROY MD, [facility] Unava ilsanchez MCKNIGHT MD, LORRIE Rapp Attending Unavailable KIRILL GAVIRIA, [facility] Unava rita MCKNIGHT MD, LORRIE Rapp Attending Unavailable MT GAVIRIA, LORRIE Rapp Attending Unavailable KIRILL GAVIRIA, [facility] Unava rita ROY MD, [facility] Primary [facility] Unava rita MCKNIGHT MD, LORRIE Rapp Attending Unavailable KIRILL GAVIRIA, [facility] Unava rita MCKNIGHT MD, LORRIE Rapp Attending Shailesh MCKNIGHT MD, LORRIE Rapp Consulting Unavailable KIRILL GAVIRIA, [facility] Admitting Buzz ROY MD, [facility] Unava rita ROY MD, [facility] Attending Unava ZURDO Nugent MD, BA Consulting Unavailable KIRILL GAVIRIA, [facility] Unava rita MCKNIGHT MD, LORRIE Rapp Attending Shailesh ROY MD, [facility] Unava rita MCKNIGHT MD, LORRIE Rapp Attending Unavailable Dr. Diana Titus Attending Provider [facility] Doctor, Out of Primary Care Provider [facility] Referring Provider Dr. Osmani Jacob Attending Provider [phone] Dr. Osmani Morgan Primary Care Provider [phone] Dr. Jason Irby Attending Provider Dr. Diana Titus Referring Provider Dr. Diana Titus Other Provider Dr. Osmani Morgan Referring Provider LENO Good Attending Provider Dr. Diana Titus Attending Provider [phone] Efrain Cooper MD Unavailable Cole BAUER, Blair Unavailable YOVANI PEOPLES Referring Unavailable RAVISHANKAR, SHIRA R Primary Care Unavai lable ELE BONILLA Attending Unavaila ble RAVISHANKAR, SHIRA R Primary Care Unavai lable RAVISHANKAR, SHIRA R Primary Care Unavai lable RAVISHANKAR, SHIRA R Primary Care Unavai lable RAVISHANKAR, SHIRA R Primary Care Unavai lable RAVISHANKAR, SHIRA R Primary Care Unavai lable ABIEL SMITH Referring Unavailab le RAVISHANKAR, SHIRA R Primary Care Unavai lable LUISABIEL FRANCO Referring Unavailab le RAVISHANKAR, SHIRA R Primary Care Unavai lable RAVISHANKAR, SHIRA R Primary Care Unavai lable MARIANA CANALES Referring Unavailable YOVANI PEOPLES Attending Unavailable YOVANI PEOPLES Admitting Unavailable RAVISHANKAR, SHIRA R Primary Care Unavai lable SHELTON, YOVANI Attending Unavailable RAVISHANKAR, SHIRA R Primary Care Unavai lable Dr. Osmani Morgan Primary Care Provider [phone] Dr. Osmani Morgan Attending Provider [phone] Dr. Osmani Morgan Referring Provider [phone] Dr. Osmani Morgan Primary Care Provider [phone] Dr. Osmani Morgan Attending Provider [phone] Dr. Osmani Morgan Referring Provider [phone] Dr. Holland Flores Emergency Provider [phone] Dr. Anastacia Selby Admit Provider Dr. Anastacia Selby Other Provider Dr. Jc Aogsto Other Provider [phone] Dr. Hany Braxton Other Provider Dr. Anthony Bowers Attending Provider Dr. Anthony Bowers Other Provider Dr. Blu Martinez Other Provider Dr. Robyn Fuentes Other Provider [phone] Dr. Song Gomez Other Provider Dr. Kitty Chamberlain Other Provider Dr. Jeremie Durand Other Provider Unavailable Dr. Zhao Garcia Other Provider [phone] Dr. Blane Brand Other Provider Dr. Parminder Arita Other Provider Dr. Alfredito Olivas Other Provider Dr. Shu Ballesteros Other Provider Dr. Maria Del Rosario Cooper Other Provider Dr. Jason Irby Attending Provider Dr. Maria Del Rosario Cooper Attending Provider Dr. Ansatacia Selby Attending Provider Dr. León Ye Attending Provider Dr. León Ye Other Provider Dr. León Ye Referring Provider Dr. Osmani Morgan Primary Care Provider Dr. Osmani Morgan Attending Provider Dr. Osmani Morgan Referring Provider Dr. Holland Flores Emergency Provider Dr. Anastacia Selby Admit Provider Dr. Anastacia Selby Other Provider Dr. Jc Agosto Other Provider Dr. Hany Braxton Other Provider Dr. Anthony Bowers Attending Provider Dr. Anthony Bowers Other Provider Dr. Blu Martinez Other Provider Dr. Robyn Fuentes Other Provider Dr. Song Gomez Other Provider Dr. Kitty Chamberlain Other Provider Dr. Jeremie Durand Other Provider Unavailable Radha, Dr. Churchill Other Provider Sunday, Dr. Arguelles Other Provider Dr. Parminder Arita Other Provider Dr. Alfredito Olivas Other Provider Dr. Shu Ballesteros Other Provider [phone] Kenneth, Dr. Maria Del Rosario Vargas Other Provider Dr. León Ye Referring Provider Dr. Jason Irby Attending Provider Dr. Maria Del Rosario Cooper Attending Provider Dr. León Ye Attending Provider Dr. León Ye Other Provider JIMI VILLALOBOS Admitting Unavailable BATOOL CARABALLO Referring Unavailable SHIRA ROY Primary Care RON Leblanc Attending Unavailable LILI MODI Consulting Unavailable Osmani Morgan MD Primary Care Provider CONSULT, NEPHROLOGY Consulting Unavailable ASHLEY STALLINGS Admitting Unavailable JEB CASAS Referring Unavailable OSMANI MORGAN Primary Care Unavailable MARVIN BEE Attending Unavailable Unavailable Primary Care Provider Unavailbrina Morgan MD, Dr. Rico Primary Care Provider Dr. Osmani Morgan MD Referring Provider Kyle Pretty Attending Provider Sanju THOMPSON, Dr. White Emergency Provider de David THOMPSON, Dr. Paez Admit Provider Unavail able Grant DO, Dr. Paez Other Provider Unavail able Nicolás GAVIRIA, Dr. Eller Attending Provider Maurice GAVIRIA, Dr. Ball Other Provider Stephon GAVIRIA, Dr. Cooper Other Provider Alton GAVIRIA, Dr. Barfield Attending Provider Nicolás GAVIRIA, Dr. Eller Other Provider Stephon GAVIRIA, Dr. Cooper Attending Provider Nicolás GAVIRIA, Dr. Eller Referring Provider Rashid THOMPSON, Dr. Hernandez Attending Provider Lydia GAVIRIA, Dr. Almaraz Attending Provider Osmani Morgan MD Attending Provider Unavaila ble Tickton SUPERVISOR SPECIAL EDUCATION-C, Tabby Attending Provider Osmani Morgan MD Referring Provider Unavaila ble Tickton SUPERVISOR SPECIAL EDUCATION-C, Tabby Referring Provider Cathy GAVIRIA, Dr. Rico Attending Provider Charlene Nash Attending Provider Sherita Ordoñez Attending Provider Bryson GAVIRIA, Dr. Johnson Attending Provider KIRILL GAVIRIA, [facility] Unava ilable KEVEN GAVIRIA, ROSEANNE Attending Unavaila brigida BACA MD, ROSEANNE Attending Unavaila brigida ROY MD, [facility] Unava ilable KEVEN GAVIRIA, ROSEANNE Attending Unavaila brigida ROY MD, [facility] Unava ilable KEVEN GAVIRIA, ROSEANNE Attending Unavaila brigida ROY MD, [facility] Unava ilsanchez ROY MD, [facility] Unava ilable CHRISTAL LIMA Attending Unavailable KEVEN GAVIRIA, ROSEANNE Attending Unavaila brigida ROY MD, [facility] Unava ilable CHRISTAL LIMA Attending Unavailable KIRILL GAVIRIA, [facility] Unava ilable KIRILL GAVIRIA, [facility] Unava ilable AYUSH GAVIRIA, SANCHEZ Schaeffer Attending Unavailable KEVEN GAVIRIA, ROSEANNE Attending Unavaila brigida ROY MD, [facility] Unava ilable KEVEN GAVIRIA, ROSEANNE Attending Unavaila brigida ROY MD, [facility] Unava ilable KEVEN GAVIRIA, ROSEANNE Attending Unavaila brigida ROY MD, [facility] Unava ilable KIRILL GAVIRIA, [facility] Unava ilable SUE RUSS DO Attending Unavailable Cathy AGVIRIA, Dr. Rico Primary Care Provider Dr. Osmani Morgan MD Referring Provider Charlene Nash Attending Provider Osmani Morgan MD Attending Provider Unavaila brigida Palmer NP-CTabby Attending Provider Estela AARON-Tabby Woo Referring Provider Sherita Ordoñez Attending Provider Osmani Morgan MD Referring Provider Unavailsara Lawson MD, Dr. Johnson Attending Provider Jaswinder Iqbal Attending Provider Osmani Vasques Attending Unavailabl e Oleghe, Efewongbe Primary Care Unavailable Oleghe, Efewongbe Primary Care Unavailable Juliane Osmani ONEILL Attending Unavailabl e Oleghe, Efewongbe Primary Care Unavailable Oleghe Osmani ONEILL Attending Unavailabl e Oleghe, Efewongbe Primary Care Unavailable Estela SUPERVISOR SPECIAL EDUCATIONTabby Attending Unavailable Tabby Palmer NP Referring Unavailable Oleghe, Efewongbe Primary Care Unavailable Allie Macias Consulting Unavailable Ema Rodriguez Attending Unavailable JannyDustyDonnie Admitting Unavailable Janny, Donnie Referring Unavailable Travon Bowers Consulting Unavailable Oleghe, Efewongbe Consulting Unavailable Conchis Petit Consulting Unavailable Estela SUPERVISOR SPECIAL EDUCATION, Tabby Consulting Unavailable Mel Mckeon Consulting Unavailable Kyle Pretty Consulting Unavailable Maddison, Maryana Consulting Unavailable Celioron, Maryana Consulting Unavailable Tanphaichitr, Natthavat Consulting Unavaila Sergio Hutson Consulting Unavailable Kelli Casas Consulting Unavailable Sung Freeman Consulting Unavailable JannyDusty Consulting Unavailable Kelli Casas Attending Unavailable Rafita Monzon Attending Unavailable Rafita Monzon Consulting Unavailable Sherita Rondon Attending Unavailable Oleghe, Efewongbe Primary Care Unavailable Holland Flores Attending Unavailable Tickton SUPERVISOR SPECIAL EDUCATION, Tabby Attending Unavailable Oleghe, Efewongbe Primary Care Unavailable Tickton SUPERVISOR SPECIAL EDUCATION, Tabby Referring Unavailable Oleghe, Efewongbe Primary Care Unavailable Tickton SUPERVISOR SPECIAL EDUCATION, Tabby Attending Unavailable Tickton SUPERVISOR SPECIAL EDUCATION, Tabby Referring Unavailable Oleghe, Efewongbe Primary Care Unavailable Oleghe OLS, Efewongbe Attending Unavailabl e Oleghe, Efewongbe Primary Care Unavailable Oleghe OLS, Efewongbe Attending Unavailabl e Oleghe, Efewongbe Primary Care Unavailable Oleghe OLS, Efewongbe Attending Unavailabl e Oleghe, Efewongbe Primary Care Unavailable Oleghe OLS, Efewongbe Attending Unavailabl e Tickton SUPERVISOR SPECIAL EDUCATION, Tabby Attending Unavailable Oleghe, Efewongbe Primary Care Unavailable Tickton SUPERVISOR SPECIAL EDUCATION, Tabby Referring Unavailable Oleghe, Efewongbe Primary Care Unavailable Oleghe OLS, Efewongbe Attending Unavailabl e Oleghe, Efewongbe Primary Care Unavailable Oleghe OLS, Efewongbe Attending Unavailabl e Oleghe, Efewongbe Primary Care Unavailable Rafita Monzon Attending Unavailable Sanchez Grant Admitting Unavailable Sanchez Grant Consulting Unavailable Tanphaichitr, Natthavat Consulting Unavaila Kenneth Byrd Consulting Unavailabl e Nicolás Rafita Referring Unavailable David Mike Attending Unavailable Sanchez Grant Admitting Unavailable Sanchez Grant Consulting Unavailable Oleghe, Efewongbe Primary Care Unavailable Tanphaichitr, Natthavat Consulting Unavaila ble Nagajothi, Nagapradee Consulting Unavailabl e Nicolás, Rafita Consulting Unavailable Nicolás, Rafita Attending Unavailable Sanchez Grant Attending Unavailable Nagajothi, Nagapradee Attending Unavailabl e Oleghe, Efewongbe Primary Care Unavailable Estela SUPERVISOR SPECIAL EDUCATIONTabby Attending Unavailable Oleghe, Efewongbe Primary Care Unavailable Oleghe, Efewongbe Referring Unavailable Jaswinder Iqbal Attending Unavailable Oleghe, Efewongbe Primary Care Unavailable Kyle Pretty Attending Unavailable Oleghe, Efewongbe Referring Unavailable Oleghe, Efewongbe Primary Care Unavailable Oleghe, Efewongbe Referring Unavailable Charlene Archer Attending Unavailable Oleghe, Efewongbe Primary Care Unavailable Tabby Palmer NP Attending Unavailable Oleghe, Efewongbe Primary Care Unavailable Tabby Palmer NP Attending Unavailable Oleghe, Efewongbe Primary Care Unavailable Oleghe, Efewongbe Attending Unavailable Lico Dang Attending Unavailable Oleghe, Efewongbe Primary Care Unavailable Nicolás, Rafita Referring Unavailable Sung Freeman Attending Unavailable Oleghe, Efewongbe Primary Care Unavailable Oleghe, Efewongbe Primary Care Unavailable Sherita Rondon Attending Unavailable Oleghe, Efewongbe Referring Unavailable Oleghe, Efewongbe Primary Care Unavailable Dusty Soliman Referring Unavailable Dusty Soliman Attending Unavailable Oleghe, Efewongbe Primary Care Unavailable Fabian Lawson Attending Unavailable Oleghe, Efewongbe Primary Care Unavailable Tabby Palmer NP Attending Unavailable Oleghe, Efewongbe Primary Care Unavailable David Mike Attending Unavailable Oleghe, Efewongbe Primary Care Unavailable Oleghe OLS Efewongbe Attending Unavailabl e Oleghe, Efewongbe Primary Care Unavailable Oleghe OLS, Efewongbe Referring Unavailabl e Oleghe OLS Efewongbe Attending Unavailabl e Oleghe, Efewongbe Primary Care Unavailable GuLima Pham Attending Unavailable Oleghe, Efewongbe Primary Care Unavailable Oleghe OLS, Efewongbe Attending Unavailabl e Oleghe, Efewongbe Primary Care Unavailable RondonDanny christiansonison Attending Unavailable Rondon, Sherita Referring Unavailable Oleghe, Efewongbe Primary Care Unavailable Lima Fontaine Attending Unavailable Allie Macias Consulting Unavailable Dusty Soliman Referring Unavailable Dusty Soliman Attending Unavailable Janny, Donnie Admitting Unavailable Oleghe, Efewongbe Primary Care Unavailable Travon Bowers Consulting Unavailable Oleghe, Efewongbe Consulting Unavailable Conchis Petit Consulting Unavailable Estela SUPERVISOR SPECIAL EDUCATION, Tabby Consulting Unavailable Mel Mckeon Consulting Unavailable Kyle Pretty Consulting Unavailable Maryana Washburn Consulting Unavailable Maryana Lynn Consulting Unavailable Tanphaichitr, Natthavat Consulting UnavailSergio Rizo Consulting Unavailable Kelli Casas Consulting Unavailable Sung Freeman Consulting Unavailable Rafita Monzon Consulting Unavailable Oleghe, Efewongbe Primary Care Unavailable Fabian Lawson Attending Unavailable Oleghe, Efewongbe Primary Care Unavailable Oleghe, Efewongbe Attending Unavailable Oleghe, Efewongbe Referring Unavailable Oleghe, Efewongbe Primary Care Unavailable Oleghe, Efewongbe Attending Unavailable Oleghe, Efewongbe Referring Unavailable Oleghe, Efewongbe Primary Care Unavailable Kyle Pretty Attending Unavailable Oleghe, Efewongbe Referring Unavailable Oleghe, Efewongbe Primary Care Unavailable Sherita Rondon Attending Unavailable Oleghe, Efewongbe Referring Unavailable Oleghe, Efewongbe Primary Care Unavailable Sung Freeman Attending Unavailable Oleghe, Efewongbe Referring Unavailable Oleghe, Efewongbe Primary Care Unavailable Sung Freeman Attending Unavailable Oleghe, Efewongbe Referring Unavailable Oleghe, Efewongbe Primary Care Unavailable Rondon, Sherita Attending Unavailable Oleghe, Efewongbe Referring Unavailable Oleghe, Efewongbe Primary Care Unavailable Rondon, Sherita Attending Unavailable Oleghe, Efewongbe Primary Care Unavailable Sung Freeman Attending Unavailable Rondon, Sherita Referring Unavailable Oleghe, Efewongbe Primary Care Unavailable Dusty Soliman Referring Unavailable Ema Oconnor Attending Unavailable Oleghe, Efewongbe Referring Unavailable Oleghe, Efewongbe Primary Care Unavailable Oleghe, Efewongbe Attending Unavailable Sergio Vergara Attending Unavailable Anastacia Selby Attending Unavailable MakeyFabian Referring Unavailable Oleghe, Efewongbe Primary Care Unavailable Fabian Lawson Attending Unavailable León eY Attending Unavailable Sung Freeman Attending Unavailable Oleghe, Efewongbe Primary Care Unavailable Oleghe OLS, Efewongbe Attending Unavailabl e Oleghe OLS, Efewongbe Attending Unavailabl e Oleghe, Efewongbe Primary Care Unavailable Oleghe OLS, Efewongbe Referring Unavailabl e Oleghe OLS, Efewongbe Attending Unavailabl e Oleghe, Efewongbe Primary Care Unavailable Allergies Allergy Classification Reported Allergen(s) Allergy Type Date of Onset Reaction(s) Facility (20 sources) adalimumab; Translations: [adalimumab] Drug Allergy 0 [facility] (10 sources) atorvastatin; Translations: [ATORVASTATIN] Drug Allergy 2 Intolerance [facility] Work Phone: (3 sources) beef allergenic extract Drug Allergy 4 PT UNABLE TO RESPOND-NEEDS F/U [facility] (3 sources) Pork/Porcine Containing Products Allergy to substance 4 PT UNABLE TO RESPOND-NEEDS F/U [facility] (1 source) atorvastatin Drug Allergy 4 Fatigue [facility] Work Phone: (1 source) PORK-DERIVED PRODUCTS Propensity to adverse reactions to drug 4 [facility] (1 source) adalimumab Drug Allergy 5 [facility] Repository (1 source) Pork/Porcine Containing Products Drug allergy (disorder) 4 [facility] Repository (1 source) beef derived (bovine) Drug allergy (disorder) 4 [facility] Repository Medications Current Medications Medication Drug Class(es) Dates Sig (Normalized) Sig (Original) 8 hr acetaminophen 650 mg extended release oral tablet (20 sources) Start: 05-15-2024 take 1 tablet by mouth every eight hours as needed for pain Acetaminophen (8 Hour Pain Reliever) 650 mg tablet extended release Active 650 mg PO Q8H as needed for pain, mild May 15, 2024 1:00am Start: 09-15-2023 End: 09-18-2023 take 975 mg by mouth every six hours as needed Start: 09-12-2023 Start: 09-10-2023 End: 09-15-2023 take 1 tablet by mouth every four hours as needed Start: 09-04-2023 End: 11-07-2023 Acetaminophen 650 mg supposi tory Discontinued 650 mg RC Q4H as needed for fever or pain September 04, 2023 12:00am November 07, 2023 11:25am Start: 10-03-2022 End: 11-07-2023 take 2 capsules by mouth every four hours Acetaminophen (Tylenol) 325 mg Capsule Discontinued 650 mg PO Q4H October 03, 2022 12:00am November 07, 2023 11:25am Start: 03-15-2022 Tylenol 325 mg oral tablet Dose : 650 mg = 2 tab(s), Oral, q4h, PRN as needed for pain Start Date: 03/15/22 Status: Ordered Repeat number: 1 Start: 03-12-2021 take 2 tablets by mo [facility] every six hours as needed acetaminophen (TYLENOL EXTRA STRENGTH) 500 mg tablet Take 2 tablets by mouth every 6 hours as needed for pain. 40 tablet 0 03/12/2021 Active Start: 11-27-2020 [facility] needed acetaminophen (TYLENOL) 500 mg tablet Take 500 mg by mouth every 6 hours as needed for pain. 0 11/27/2020 Active Comment on above: Take 500 mg by mouth every 6 hours as needed for pain. Take 2 tablets by mo [facility] every 6 hours as needed for pain. amLODIPine 10 mg oral tablet (20 sources) Dihydropyridine Calcium Channel Sabas Start: take 1 tablet by mouth once daily Amlodipine 10 mg Tablet Active 10 mg PO DAILY 0 May 19, 2024 1:00am Start: 07-16-2023 End: 11-07-2023 take 1 tablet by mouth once daily Amlodipine 10 mg tablet Discontinued 10 mg PO DAILY July 22, 2023 12:00am November 07, 2023 11:20am On Hold: Order Changed Start: 03-19-2022 End: 07-16-2023 take 1 tablet by mouth twice daily Amlodipine 5 mg Tablet Discontinued 5 mg PO TWICE A DAY August 15, 2022 12:00am August 15, 2022 1:58pm Start: 06-29-2021 amLODIPine 5 m g oral tablet Dose : 5 mg = 1 tab(s), Oral, qDay, # 30 tab(s), 0 Refill(s) Start Date: 06/29/21 Status: Ordered Comment on above: Take 10 mg by mouth once daily. amLODIPine 10 mg / benazepril hydrochloride 20 mg oral capsule (4 sources) Dihydropyridine Calcium Channel Sabas, Angiotensin Converting Enzyme Inhibitor Start: 3 take 1 capsule by mouth twice daily amLODIPine-robert zepril 10 mg-20 mg oral capsule Dose = 1 cap(s), Oral, BID Start Date: 12/14/12 Status: Ordered Start: 12-14-2012 take 1 capsule by mo [facility] once daily amLODIPine-benazepril 10 mg-20 mg oral capsule Dose = 1 cap(s), Oral, qDay Start Date: 12/14/12 Status: Ordered ascorbic acid 100 mg / biotin 0.15 mg / calcium pantothenate 5 mg / folic acid 1 mg / niacin 20 mg / pyridoxine 10 mg / riboflavin 1.7 mg / thiamine mononitrate 1.5 mg / vitamin b12 0.006 mg oral capsule (2 sources) Nicotinic Acid, Vitamin B12, Vitamin C Start: 09-11-2023 End: 09-18-2023 atorvastatin 10 mg oral tablet (20 sources) HMG-CoA Reductase Inhibitor Start: 07-06-2024 take 1 tablet by mouth once daily atorvastatin 10 mg oral tablet TAKE 1 TABLET BY MOUTH EVERY DAY Start Date: 07/06/24 Status: Ordered Repeat number: 1 Start: 11-07-2023 End: 02-11-2024 take 1 tablet by mouth once daily atorvastatin 10 mg oral tablet TAKE 1 TABLET BY MOUTH EVERY DAY Start Date: 07/06/24 Status: Ordered Repeat number: 1 Start: 01-11-2021 take 1 tablet by stas once daily atorvastatin (LIPITOR) 20 mg tablet Take 1 tablet by mouth once daily. 90 tablet 3 01/11/2021 Active Comment on above: Take 1 tablet by stas th once daily. bimatoprost 0.1 mg/ml ophthalmic solution (20 sources) Prostaglandin Analog Start: 06-17-2024 Lumigan 0.01% ophthalmic solution Dose = 1 drop(s), Eyes, both, qPM, # 2.5 mL, 0 Refill(s) Start Date: 06/17/24 Status: Ordered Quantity: 2.5 Unit: mL Repeat number: 1 Start: 06-13-2022 End: 11-07-2023 take 0.01 drop(s) into the eye(s) at bedtime Bimatoprost (Lumigan) 0.01 % Drops Discontinued 1 NMA EACH EYE AT BEDTIME June 13, 2022 1:00am November 07, 2023 11:29am Start: 06-13-2022 End: 11-07-2023 Start: 06-13-2022 take 0.01 drop(s) in to the eye(s) at bedtime Bimatoprost (Lumigan) 0.01 % Drops Active 1 DRP EACH EYE AT BEDTIME June 13, 2022 1:00am Start: 06-13-2022 take 0.01 drop(s) in to the eye(s) once daily Bimatoprost (Lumigan) 0.01 % Drops Active 1 DRP EACH EYE DAILY June 13, 2022 1:00am Start: 12-14-2012 Lumigan 0.01% ophthalmic solution (NF) Dose = 1 drop(s), Eyes, both, qPM, # 2.5 mL, 0 Refill(s) Start Date: 12/14/12 Status: Ordered Start: 12-14-2012 Lumigan 0.01% ophthalmic solution (NF) Dose = 1 drop(s), Eyes, both, qPM, # 2.5 mL, 0 Refill(s) Start Date: 12/14/12 Status: Ordered take 1 drop(s) into the eye(s) once daily at bedtime bimatoprost (LUMIGAN) 0.01 % drop ophthalmic drops Use 1 Drop in both eyes daily at bedtime. 0 Active Comment on above: Use 1 Drop in both e yes daily at bedtime. calcitriol 0.76704 mg oral capsule (10 sources) Vitamin D3 Analog Start: 03-15-2022 calcitriol 0.25 mcg oral capsule Dose : 0.25 mcg = 1 cap(s), Oral, qDay Start Date: 03/15/22 Status: Ordered Repeat number: 1 calcium carbonate 600 mg chewable tablet (20 sources) Start: 02-13-2021 take 1 mg by mouth once daily calcium carbonate 600 mg oral tablet, chewable mg = tab(s), Chewed, qDay, 0 Refill(s) Start Date: 02/13/21 Status: Ordered carvedilol 25 mg oral tablet (20 sources) alpha-Adrenergic Sabas, beta-Adrenergic Sabas Start: 07-06-2024 take 2 tablets by mouth twice daily carvedilol 25 mg oral tablet TAKE 2 TABLETS BY MOUTH TWICE DAILY Start Date: 07/06/24 Status: Ordered Repeat number: 1 Start: 12-31-2023 End: 02-11-2024 take 2 tablets by mouth twice daily carvedilol 25 mg oral tablet TAKE 2 TABLETS BY MOUTH TWICE DAILY Start Date: 07/06/24 Status: Ordered Repeat number: 1 Start: 11-07-2023 End: 12-31-2023 take 2 tablets by mouth twice daily at mealtime Carvedilol 12.5 mg tablet Discontinued 25 mg PO TWICE A DAY November 07, 2023 11:27am December 31, 2023 8:11am must administer with a meal/food Start: 09-18-2023 Start: 09-10-2023 End: 09-14-2023 Start: 01-11-2021 End: 12-31-2023 take 1 tablet by mouth twice daily at mealtime Carvedilol 12.5 mg Tablet Discontinued 12.5 mg PO TWICE A DAY June 13, 2022 1:00am November 07, 2023 11:33am must administer with a meal/food Comment on above: Take 1 tablet by stas twice daily with meals. cetirizine hydrochloride 10 mg oral tablet (17 sources) Histamine-1 Receptor Antagonist Start: take 1 tablet by mouth once daily as needed Cetirizine (24hour Allergy) 10 mg tablet Active 10 mg PO DAILY as needed for rash May 15, 2024 1:00am take 5 mg by mouth e very twenty-four hours as needed CETIRIZINE HCL (ZYRTEC ORAL) Take 5 mg b y mouth at bedtime as needed (itching). 0 Active Comment on above: Take 5 mg by mouth a t bedtime as needed (itching). 12 hr cetirizine hydrochloride 5 mg / pseudoephedrine hydrochloride 120 mg extended release oral tablet (20 sources) alpha-Adrenergic Agonist, Histamine-1 Receptor Antagonist Start: 02-14-20 take 1 tablet by mouth every twenty-four hours as needed ZyrTEC-D 5 mg-120 mg oral tablet, extended release Dose = 1 tab(s), Oral, q24h, PRN Allergic reaction, # 30 tab(s), 0 Refill(s) Start Date: 02/13/21 Status: Ordered cholecalciferol 0.125 mg oral tablet (19 sources) Vitamin D Start: 05-15-19 take 1 tablet by mouth once daily Cholecalciferol (Vitamin D3) 125 mcg (5,000 unit) tablet Active 62.5 ug PO DAILY May 15, 2024 1:00am Start: 02-11-2024 Cholecalcifero l (Vitamin D3) 62.5 mcg (2,500 unit) capsule Active 0 PO .COMPLEX 90 February 11, 2024 11:31am 1 capsule orally; Start: 02-11-2024 End: 02-11-2024 Cholecalciferol (Vitamin D3) 62.5 mcg (2,500 unit) capsule Discontinued ug PO February 11, 2024 12:00am February 11, 2024 11:31am take 1 capsule by [facility] every other week cholecalciferol, Vitamin D3, 50,000 unit cap capsule Take 50,000 Units by mouth every 2 weeks. 0 Active Comment on above: Take 50,000 Units by mouth every 2 weeks. 168 hr cloNIDine 0.65670 mg/hr transdermal system (20 sources) Central alpha-2 Adrenergic Agonist Start: 12-09-2023 End: 03-08-2024 Clonidine 0.1 mg/24 hr patch weekly Active 1 NMA TD ROLON March 08, 2024 6:06pm Start: 12-09-2023 End: 03-08-2024 Start: 11-07-2023 [facility] hours as needed Clonidine Hcl 0.1 mg tablet Active 0.1 mg PO EVERY 6 HOURS as needed for hypertensive emergency November 07, 2023 12:00am Start: 09-18-2023 Start: 09-16-2023 End: 09-18-2023 take 0.1 mg by mouth every six hours as needed Start: 03-15-2022 cloNIDine 0.2 mg oral tablet Dose : 0.2 mg = 1 tab(s), Oral, q6h, PRN Anxiety Start Date: 03/15/22 Status: Ordered Repeat number: 1 docusate sodium 50 mg / sennosides, fdc 8.6 mg oral tablet (2 sources) Start: 05-19-2024 Sennosides-Doc usate Sodium (Stimulant Laxative Plus) 8.6-50 mg Tablet Active 2 {tbl} PO TWICE A DAY May 19, 2024 1:00am Start: 05-19-2024 1 ml epoetin miguel 32763 unt/ml injection (1 source) Erythropoiesis-stimulating Agent Start: 09-18-2023 fenofibrate 145 mg oral tablet (20 sources) Peroxisome Proliferator Receptor alpha Agonist Start: 12-14-2012 fenofibrate 145 mg oral tablet Dose : 145 mg = 1 tab(s), Oral, qDayM Start Date: 12/14/12 Status: Ordered Comment on above: Take 145 mg by mouth once daily. ferrous gluconate 240 mg oral tablet (4 sources) Start: 12-14-2012 ferrous gluconate 240 mg (27 mg elemental iron) oral tablet Dose : 240 mg = 1 tab(s), Oral, qDay, 0 Refill(s) Start Date: 12/14/12 Status: Ordered Fish Oils (4 sources) Start: 03-15-2022 Fish Oil 1000 mg oral capsule Dose : 2,000 mg = 2 cap(s), Oral, BID Start Date: 03/15/22 Status: Ordered Repeat number: 1 Start: 03-15-2022 Fish Oil 1000 mg oral capsule Dose : 2,000 mg = 2 cap(s), Oral, BID Start Date: 03/15/22 Status: Ordered fluconazole 100 mg oral tablet (1 source) Azole Antifungal Start: 10-07-2024 take 1 tablet by mouth once daily Fluconazole (Diflucan) 100 mg tablet Active 100 mg PO daily October 07, 2024 12:00am gabapentin 100 mg oral capsule (20 sources) Anti-epileptic Agent Start: 05-15-2024 Start: 06-05-2023 End: 11-07-2023 take 2 capsules by mouth once daily as needed Gabapentin 100 mg capsule Discontinued 200 mg PO DAILY as needed for Neuropathy June 27, 2023 1:46pm November 07, 2023 11:28am On Hold: Order Completed Daily Prn Start: 08-15-2022 End: 06-05-2023 Gabapentin 100 mg capsule Discontinued 200 mg PO THREE TIMES A DAY 540 August 15, 2022 1:57pm June 05, 2023 5:34pm bid to tid as needed Start: 08-15-2022 End: 11-07-2023 Start: 08-15-2022 End: 06-05-2023 Gabapentin Discontinued 200 MG PO THREE TIMES A DAY 540 August 15, 2022 1:57pm June 05, 2023 5:34pm bid to tid as needed Start: 08-15-2022 take 200 mg by mouth three times daily Gabapentin Active 200 MG PO THREE TIMES A DAY 540 August 15, 2022 1:57pm Start: 06-13-2022 End: 08-15-2022 Gabapentin 300 mg capsule Discontinued 200 mg PO THREE TIMES A DAY August 15, 2022 1:24pm August 15, 2022 1:57pm Start: 06-13-2022 End: 08-15-2022 Start: 03-15-2022 gabapentin 100 mg oral capsule Dose : 200 mg = 2 cap(s), Oral, BID, # 120 cap(s), 0 Refill(s), Pharmacy: [id number], Cancer related pain, 152.4, cm, 08/17/24 9:07:00 EDT, Height, 46.8, kg, 08/17/24 9:07:00 EDT, Dosing Weight Start Date: 08/17/24 Status: Ordered Quantity: 120.0 Unit: cap(s) Repeat number: 1 Indications: Neoplasm related pain (acute) (chronic); Start: 12-14-2012 take 1 capsule by mo uth three times daily gabapentin (NEURONTIN) 300 mg capsule Take 1 capsule by mouth three times daily. / Actual start date 02/12/15 270 capsule 0 02/12/2015 Active Comment on above: Take 1 capsule by mo uth three times daily. / Actual start date 02/12/15 handicap placard (1 source) Start: handicap placard Active 0 .Route .MEDSUPPLY 1 February 11, 2024 12:00am February 10, 2025 12:00am Dispense one placard (one year) HumaLOG 100 units/mL injectable solution VIAL (7 sources) Start: HumaLOG 100 units/mL injectable solution VIAL Dose : 8 unit(s) =, Subcutaneous, BIDAC, 0 Refill(s) Start Date: 09/29/20 Status: Ordered hydrALAZINE hydrochloride 100 mg oral tablet (20 sources) Arteriolar Vasodilator Start: take 1 tablet by mouth every eight hours hydrALAZINE 100 mg oral tablet TAKE 1 TABLET BY MOUTH EVERY EIGHT hours Start Date: 09/28/24 Status: Ordered Repeat number: 1 Start: 08-17-2024 End: 08-17-2024 take 1 tablet by mouth in the evening hydrALAZINE Start: 08/17/24 3:45:00 PM EDT, Dose = 50 mg, = 1 tab(s), Oral, Once, Stop: 08/17/24 3:49:37 PM EDT, 0, 08/17/24 15:31:00 EDT Start Date: 08/17/24 Stop Date: 08/17/24 Status: Completed Repeat number: 1 Start: 05-19-2024 take 2 tablets by mo uth every eight hours Hydralazine 50 mg Tablet Active 100 mg PO EVERY 8 HOURS 0 May 19, 2024 1:00am Start: 05-19-2024 hydrALAZINE 50 mg oral tablet Dose : 50 mg = 1 tab(s), Oral, TID, # 60 tab(s), 0 Refill(s) Start Date: 07/01/24 Status: Ordered Quantity: 60.0 Unit: tab(s) Repeat number: 1 Start: 05-15-2024 End: 05-15-2024 take 1 tablet by mouth four times daily Hydralazine 50 mg tablet Discontinued 50 mg PO 4 TIMES DAILY May 15, 2024 1:00am May 15, 2024 8:12am Start: 05-15-2024 End: 05-15-2024 Start: 11-07-2023 End: 05-19-2024 take 1 tablet by mouth every eight hours as needed for hypertension Hydralazine 100 mg tablet Discontinued 100 mg PO Q8H as needed for hypertension May 15, 2024 1:00am May 19, 2024 3:05pm Start: 09-15-2023 End: 09-18-2023 Start: 09-10-2023 End: 09-15-2023 Start: 09-06-2023 End: 05-19-2024 take 1 tablet by mouth three times daily Hydralazine 100 mg tablet Discontinued 100 mg PO THREE TIMES A DAY October 03, 2023 3:30pm November 07, 2023 11:33am Start: 06-13-2022 End: 09-06-2023 take 1 tablet by mouth three times daily Hydralazine 50 mg Tablet Discontinued 50 mg PO THREE TIMES A DAY June 13, 2022 1:00am June 20, 2022 4:52pm Start: 03-19-2022 End: 03-19-2022 hydrALAZINE Start: 03/19/22 14:00:00 EST, Dose = 50 mg, = 1 tab(s), Oral, 03/15/22 12:27:00 EST Start Date: 03/19/22 Stop Date: 03/19/22 Status: Completed Start: 03-19-2022 End: 09-06-2023 take 1 tablet by mouth four times daily Hydralazine 50 mg tablet Discontinued 50 mg PO .QID June 20, 2022 4:51pm August 15, 2022 1:57pm Start: 01-18-2022 hydrALAZINE 50 mg oral tablet Dose : 50 mg = 1 tab(s), Oral, QID, 0 Refill(s) Start Date: 01/18/22 Status: Ordered Start: 09-27-2021 take 1 tablet by stas th four times daily hydrALAZINE 25 mg oral tablet See Instructions, 25mg QID, # 150 tab(s), 6 Refill(s), other reason (Rx) Start Date: 09/27/21 Status: Ordered Start: 02-13-2021 End: 04-26-2021 hydrALAZINE 25 mg oral table t Dose : 37.5 mg = 1.5 tab(s), Oral, TID, # 135 tab(s), 0 Refill(s), other reason (Rx) Start Date: 03/27/21 Stop Date: 04/26/21 Status: Ordered End: 09-18-2023 take 10 mg by mouth every six hours as needed Comment on above: Take 25 mg by mouth three times daily. indapamide 2.5 mg oral tablet (16 sources) Thiazide-like Diuretic Start: 02-13-2021 indapamide 2.5 mg oral tablet Dose : 2.5 mg = 1 tab(s), Oral, qAM, # 30 tab(s), 0 Refill(s) Start Date: 02/13/21 Status: Ordered Start: 11-30-2020 take 1 tablet by stas th once daily indapamide (LOZOL) 1.25 mg tablet Take 1 tablet by mouth once daily. 30 tablet 3 11/30/2020 Active Comment on above: Take 1 tablet by stas th once daily. insulin lispro 100 unt/ml injectable solution (20 sources) Insulin Analog Start: 09-15-2023 End: 09-16-2023 Start: 09-29-2020 HumaLOG 100 un its/mL injectable solution VIAL Dose : 8 unit(s) =, Subcutaneous, BIDAC, 0 Refill(s) Start Date: 09/29/20 Status: Ordered inject 8 [IU] by sub cutaneous injection twice daily before mealtime insulin lispro (HUMALOG KWIKPEN INSULIN SUBCUTANEOUS) Inject 8 Units subcutaneously twice daily before meals. 0 Active Comment on above: Inject 8 Units subcu taneously twice daily before meals. iv contrast (will be provided with radiology test) (5 sources) Start: 04-16-2023 End: 04-17-2023 iv contrast (will be provided with radiology test) MRI ABD/PEL UROGRAM Inject, intravenously, once for 1 dose. No IV access, insert saline lock prior to the beginning of sedation, infusion, injection of imaging exam. Discontinue saline lock post exam. If Pt has a central line or IVAD, may access for administration according to line specific nursing protocol. Once exam is complete flush line and de-access according to line specific nursing protocol in the MR contrast administration guidelines link 1 Each 0 04/16/2023 04/17/2023 Active Start: 04-08-2023 iv contrast (w ill be provided with radiology test) CT Urogram WO/W Inject, intravenously, once for 1 dose.No IV access, insert saline lock prior to the beginning of sedation, infusion, injection of imaging exam. Discontinue saline lock post exam. If Pt. has a central line or IVAD, may access for administration according to line specific nursing protocol. Once exam is complete flush line and de-access according to line specific nursing protocol in the CT contrast administration guidelines link. 1 Each 0 04/08/2023 Active Start: 04-07-2023 End: 04-08-2023 iv contrast (will be provide d with radiology test) Indications: Malignant neoplasm of urinary bladder, unspecified site (HCC) CT Urogram WO/W Inject, intravenously, once for 1 dose.No IV access, insert saline lock prior to the beginning of sedation, infusion, injection of imaging exam. Discontinue saline lock post exam. If Pt. has a central line or IVAD, may access for administration according to line specific nursing protocol. Once exam is complete flush line and de-access according to line specific nursing protocol in the CT contrast administration guidelines link. 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 Discontinue saline lock post exam. If Pt. has a central line or IVAD, may access for administration according to line specific nursing protocol. Once exam is complete flush line and de-access according to line specific nursing protocol in the CT contrast administration guidelines link. 1 Each 0 11/05/2021 11/06/2021 Active Comment on above: CT Urogram WO/W Inje ct, intravenously, once for 1 dose.No IV access, insert saline lock prior to the beginning of sedation, infusion, injection of imaging exam. Discontinue saline lock post exam. If Pt. has a central line or IVAD, may access for administration according to line specific nursing protocol. Once exam is complete flush line and de-access according to line specific nursing protocol in the CT contrast administration guidelines link. MRI ABD/PEL UROGRAM Inject, intravenously, once for 1 dose. No IV access, insert saline lock prior to the beginning of sedation, infusion, injection of imaging exam. Discontinue saline lock post exam. If Pt has a central line or IVAD, may access for administration according to line specific nursing protocol. Once exam is complete flush line and de-access according to line specific nursing protocol in the MR contrast administration guidelines link latanoprost 0.05 mg/ml ophthalmic solution (10 sources) Prostaglandin Analog Start: 07-07-19 take 1 drop(s) into the eye(s) at bedtime latanoprost 0.005% ophthalmic solution INSTILL ONE DROP IN BOTH EYES AT BEDTIME Start Date: 07/06/24 Status: Ordered Repeat number: 1 Start: 09-06-2023 End: 09-18-2023 Latanoprost 0.005 % drops Ac tive 1 NMA EACH EYE EVERY EVENING September 06, 2023 12:00am levothyroxine sodium 0.025 mg oral tablet (20 sources) l-Thyroxine Start: 06-13-2022 End: 02-11-2024 take 1 tablet by mouth once daily Levothyroxine 25 mcg tablet Active 25 ug PO DAILY February 11, 2024 11:28am Start: 02-13-2021 levothyroxine 25 mcg (0.025 mg) oral tablet Dose : 25 mcg = 1 tab(s), Oral, Friday through Friday, 0 Refill(s) Start Date: 02/13/21 Status: Ordered Repeat number: 1 Comment on above: Take 25 mcg by mouth daily before breakfast. lidocaine 0.05 mg/mg medicat ed patch (14 sources) Antiarrhythmic, Amide Local Anesthetic Start: 09-11-2023 End: 09-11-2023 Start: 01-30-2023 End: 11-07-2023 Lidocaine 5 % adhesive patch ,medicated Discontinued 1 NMA TOPICAL Q24H January 30, 2023 12:00am November 07, 2023 11:30am Start: 11-01-2021 End: 11-01-2021 lidocaine urojet 2 % 11 mL t opical gel (XYLOCAINE, GLYDO) Start: 07-11-2021 End: 07-12-2021 lidocaine urojet 2 % 11 mL t opical gel (XYLOCAINE, GLYDO) Start: 02-13-2021 lidocaine 5% t opical patch Apply 1 patch(es), Transdermal, Daily, # 30 patch(es), 0 Refill(s), 58.455 Start Date: 02/13/21 Status: Ordered End: 09-18-2023 lisinopril 20 mg oral tablet (13 sources) Angiotensin Converting Enzyme Inhibitor Start: 07-06-2024 take 1 tablet by mouth twice daily lisinopril 20 mg oral tablet TAKE 1 TABLET BY MOUTH TWICE DAILY Start Date: 07/06/24 Status: Ordered Repeat number: 1 Start: 09-06-2023 End: 02-11-2024 take 1 tablet by mouth twice daily lisinopril 20 mg oral tablet TAKE 1 TABLET BY MOUTH TWICE DAILY Start Date: 07/06/24 Status: Ordered Repeat number: 1 loperamide hydrochloride 2 mg oral capsule (6 sources) Opioid Agonist Start: 07-06-2024 take 1 mg by mouth every four hours as needed Imodium 2 mg oral capsule mg = cap(s), Oral, q4h, PRN as needed for loose stool, 0 Refill(s) Start Date: 07/06/24 Status: Ordered Repeat number: 1 loratadine 10 mg oral capsule (6 sources) Start: 07-06-2024 loratadine 10 mg oral capsule Dose : 10 mg = 1 cap(s), Oral, qDay, # 10 cap(s), 0 Refill(s) Start Date: 07/06/24 Status: Ordered Quantity: 10.0 Unit: cap(s) Repeat number: 1 methotrexate 2.5 mg oral tablet (1 source) Folate Analog Metabolic Inhibitor Start: 02-13-2021 methotrexate 2.5 mg oral tablet Dose : 12.5 mg = 5 tab(s), Oral, qWeek, # 4 tab(s), 0 Refill(s) Start Date: 02/13/21 Status: Ordered mirtazapine 7.5 mg oral tablet (12 sources) Start: 07-06-2024 take 1 tablet by mouth once daily at bedtime mirtazapine 7.5 mg oral tablet TAKE 1 TABLET BY MOUTH EVERY DAY AT BEDTIME Start Date: 07/06/24 Status: Ordered Repeat number: 1 Start: 11-07-2023 End: 02-11-2024 take 1 tablet by mouth once daily at bedtime mirtazapine 7.5 mg oral tablet TAKE 1 TABLET BY MOUTH EVERY DAY AT BEDTIME Start Date: 07/06/24 Status: Ordered Repeat number: 1 Start: 09-18-2023 Start: 09-15-2023 End: 09-18-2023 Multiple Vitamins oral tablet (10 sources) Start: 03-15-2022 take 1 tablet by mouth once daily at bedtime Multiple Vitamins oral tablet Dose = 1 tab(s), Oral, qHS Start Date: 03/15/22 Status: Ordered Repeat number: 1 Start: 03-15-2022 take 1 tablet by stas th once daily at bedtime Multiple Vitamins oral tablet Dose = 1 tab(s), Oral, qHS Start Date: 03/15/22 Status: Ordered Multivitamin preparation (20 sources) Start: 06-13-2022 take 1 tablet by mouth once daily Multivitamin Active 1 TABLET PO DAILY June 13, 2022 1:00am Start: 06-13-2022 take 1 tablet by stas th once daily Multivitamin Active 1 TABLET PO DAILY June 13, 2022 12:00am Start: 12-14-2012 take 1 tablet by stas th once daily at bedtime Multivitamin Dose = 1 tab(s), Oral, qHS, 0 Refill(s) Start Date: 12/14/12 Status: Ordered Start: 12-14-2012 take 1 tablet by stas th once daily Multivitamin Dose = 1 tab(s), Oral, Daily, 0 Refill(s) Start Date: 12/14/12 Status: Ordered nystatin [id number] unt/ml oral suspension (1 source) Polyene Antifungal Start: 09-28-2024 End: 10-05-2024 take 1 dose by mouth four times daily nystatin 100,000 units/mL oral suspension Dose : 500,000 unit(s) = 5 mL, Oral, QID, X 7 day(s), # 140 mL, 0 Refill(s), 10/05/24 10:13:00 AM EDT, (swish and swallow), Pharmacy: [id number], Bladder cancer, 152.4, cm, 09/28/24 9:49:00 EDT, Height, kg, 09/28/24 9:49:00 EDT, Dosing Weight Start Date: 09/28/24 Stop Date: 10/05/24 Status: Ordered Quantity: 140.0 Unit: mL Repeat number: 1 Indications: Malignant neoplasm of bladder, unspecified; ondansetron 8 mg disintegrating oral tablet (8 sources) Serotonin-3 Receptor Antagonist Start: 05-15-2024 ondansetron 8 mg oral tablet, disintegrating Dose : 8 mg = 1 tab(s), Oral, BID, PRN Nausea/Vomiting, # 6 tab(s), 0 Refill(s) Start Date: 07/01/24 Status: Ordered Quantity: 6.0 Unit: tab(s) Repeat number: 1 pantoprazole 40 mg delayed release oral tablet (20 sources) Proton Pump Inhibitor Start: 09-13-2023 End: 09-18-2023 Start: 09-29-2020 End: 05-19-2024 take 1 tablet by mouth twice daily Pantoprazole 40 mg tablet,delayed release (DR/EC) Active 40 mg PO TWICE A DAY 60 May 19, 2024 3:09pm Start: 09-29-2020 End: 05-19-2024 pantoprazole 40 mg oral ente teri coated tablet Dose : 40 mg = 1 tab(s), Oral, qDayAC, 0 Refill(s) Start Date: 09/29/20 Status: Ordered Repeat number: 1 Comment on above: Take 40 mg by mouth once daily. perflutren lipid microspheres 1.3 mL in NaCl (PF) 0.9% 10 mL injection (DEFINITY) (11 sources) Start: 10-27-2020 End: 01-26-2022 perflutren lipid microspheres 1.3 mL in NaCl (PF) 0.9% 10 mL injection (DEFINITY) predniSONE 20 mg oral tablet (10 sources) Start: 07-27-2024 End: 08-08-2024 predniSONE 20 mg oral tablet Dose : 20 mg = 1 tab(s), Oral, qDay, X 4 day(s), # 4 tab(s), 2 Refill(s), 08/08/24 11:25:00 AM EDT, Pharmacy: [id number], Cancer of overlapping sites of bladder, 152.4, cm, 07/27/24 10:58:00 EDT, Height, kg, 07/27/24 10:58:00 EDT, Dosing Weight Start Date: 07/27/24 Stop Date: 08/08/24 Status: Ordered Quantity: 4.0 Unit: tab(s) Repeat number: 3 Indication: Malignant neoplasm of overlapping sites of bladder Start: 04-22-2024 End: 05-15-2024 take 2 tablets by mouth once daily Prednisone 20 mg tablet Discontinued 40 mg PO DAILY 10 April 22, 2024 1:00am May 15, 2024 2:39am Start: 09-06-2023 End: 11-07-2023 take 1 tablet by mouth once daily Prednisone 10 mg tablet Discontinued 10 mg PO DAILY September 06, 2023 12:00am November 07, 2023 11:33am On Hold: patient reports not taking 11/16/23 Start: 03-19-2022 End: 03-22-2022 predniSONE 10 mg oral tablet Dose : 10 mg = 1 tab(s), Oral, qDay, PRN Control symptoms, # 3 tab(s), 0 Refill(s), Pharmacy: [facility] #[id number], 152.4, cm, 03/15/22 18:13:00 EST, Height Start Date: 03/19/22 Stop Date: 03/22/22 Status: Ordered Quantity: 3.0 Unit: tab(s) Repeat number: 1 sennosides, fdc 8.6 mg oral tablet (6 sources) Start: 07-06-2024 senna (sennosi espinoza) 8.6 mg oral tablet Dose : 17.2 mg = 2 tab(s), Oral, qHS, PRN as needed for constipation, # 100 tab(s), 0 Refill(s) Start Date: 07/06/24 Status: Ordered Quantity: 100.0 Unit: tab(s) Repeat number: 1 Vitamin C 1000 mg oral table t (20 sources) Start: 02-13-2021 Vitamin C 1000 mg oral tablet Dose : 1,000 mg = 1 tab(s), Oral, qDay, 0 Refill(s) Start Date: 02/13/21 Status: Ordered Repeat number: 1 Start: 02-13-2021 Vitamin C 1000 mg oral tablet Dose : 1,000 mg = 1 tab(s), Oral, qDay, 0 Refill(s) Start Date: 02/13/21 Status: Ordered Start: 02-13-2021 Vitamin C 1000 mg oral tablet Dose : 1,000 mg = 1 tab(s), Oral, qDay, # 30 tab(s), 0 Refill(s) Start Date: 02/13/21 Status: Ordered Vitamin D2 50,000 unit(s) capsule (4 sources) Start: 12-14-2012 Vitamin D2 50, 000 unit(s) capsule Dose : 50,000 International_Unit = 1 cap(s), every other week, 0 Refill(s) Start Date: 12/14/12 Status: Ordered (18 sources) Start: 02-11-2024 Start: 02-11-2024 Start: 02-11-2024 End: 02-11-2024 Start: 11-07-2023 End: 12-09-2023 Start: 09-18-2023 End: 09-18-2023 [Order 1 Start] Name: cloNID ine (CATAPRES) 0.1 MG/24HR patch 1 patch Signed Summary: 1 patch, Transdermal, WEEKLY, First dose on Fri09/18/23 at 0900, Until Discontinued, Each bag from pharmacy contains a medication patch (containing drug) and a larger, round non-medicated cover. Apply medication patch to suitable location over intact skin (upper arm or chest) and then apply cover. Do not cut or alter patch. Rotate site weekly. [Order 1 End] [Order 2 Start] Name: VERIFY LINKED PATCH PLACEMENT Signed Summary: Other, EVERY 12 HOURS, First dose on Fri09/18/23 at 0900, Until Discontinued, Confirm continued adhesion of cloNIDine 0.1 mg/24hr patch at documented site. [Order 2 End] Start: 09-15-2023 End: 09-18-2023 [Order 1 Start] Name: Insuli n lispro (HUMALOG) injection Signed Summary: Subcutaneous, 4 TIMES DAILY WITH MEALS & AT BEDTIME, First dose (after last modification) on Fri09/15/23 at 1700, Until Discontinued, Insulin to carb ratio: Standard: 1 unit insulin = 10 grams carbs every meal and at bedtime Correction Factor: 151-175 = 1 unit; 176-200 = 2 units; 201-225 = 3 units; 226-250 = 4 units; 251-275 = 5 units; 276-300 = 6 units; 301-325 = 7 units; 326-350 = 8 units; Kwikpen: Prime pen before each injection; refer to Pen Priming and Care Handout for further details. Warning! Confirm patient. Insulin pen is for labeled individual patient use ONLY. [Order 1 End] [Order 2 Start] Name: Insulin lispro (HUMALOG) injection Signed Summary: Subcutaneous, NEEDED, Starting on Fri09/15/23 at 1610, Until Jocelyn 09/18/23 at 2146, Other, As needed for snacks, Insulin to carb ratio: Standard: 1 unit insulin = 10 grams carbs Correction Factor: not to be used with this order. Kwikpen: Prime pen before each injection; refer to Pen Priming and Care Handout for further details. Warning! Confirm patient. Insulin pen is for labeled individual patient use ONLY. [Order 2 End] Start: 09-15-2023 End: 09-18-2023 [Order 1 Start] Name: NIFEdi pine (PROCARDIA XL) tablet XL 60 mg Signed Summary: 60 mg, Oral, DAILY, First dose (after last modification) on Fri09/15/23 at 0900, Until Discontinued, Slow release product. Do not chew or crush. [Order 1 End] [Order 2 Start] Name: NIFEdipine (PROCARDIA XL) tablet XL 60 mg Signed Summary: 60 mg, Oral, DAILY AT BEDTIME, First dose (after last modification) on Fri09/15/23 at 2100, Until Discontinued, Slow release product. Do not chew or crush. [Order 2 End] Start: 09-14-2023 End: 09-15-2023 Start: 09-13-2023 End: 09-14-2023 Start: 09-12-2023 End: 09-15-2023 [Order 1 Start] Name: BLOOD GLUCOSE (POC DEVICE) Signed Summary: Routine, 4 TIMES DAILY BEFORE MEALS & AT BEDTIME, First occurrence on Fri09/13/23 at 0745, If any Blood Glucose (POC) is greater than 300mg/dl, then repeat Blood Glucose (POC) in 2 hours. If the initial blood glucose was greater than 300mg/dl and if second blood glucose is greater than 200md/dl, then notify Sales Team Manager. [Order 1 End] [Order 2 Start] Name: BLOOD GLUCOSE (POC DEVICE) Signed Summary: Routine, DIRECTED, Starting on Fri09/12/23 at 2105, Until Specified, For all Blood Glucose LESS THAN 80 mg/dL, treat per Hypoglycemia in Non- Adults Clinical Practice Guideline (CPG) and recheck glucose 15 min after treatment. Repeat per CPG until glucose GREATER THAN 80 mg/dL. Once glucose IS GREATER THAN 80 mg/dL, recheck Blood Glucose every 1 hour x2, then resume as previously ordered. For Blood Glucose LESS THAN 80 mg/dL on admission OR LESS than 45 mg/dL at any time, obtain POC Blood Glucose every 4 hours for 6 occurrences AFTER treating per CPG. Obtain blood glucose for symptoms of hypoglycemia: sweating, shaking, fatigue, rapid pulse, slow thinking & dizziness. Notify physician w/results. Obtain blood glucose for symptoms of hyperglycemia: excessive thirst, blurred vision, excessive urination & tiredness. Notify physician w/results. If patient NPO, obtain POC Blood Glucose prior to administration of any insulin products. [Order 2 End] [Order 3 Start] Name: COMMUNICATION ORDER FOR NURSING CARE: For Blood Glucose LESS THAN 80 mg/dl Signed Summary: Routine, CONTINUOUS, Starting on Fri09/12/23 at 2106, Until Specified, For Blood Glucose LESS THAN 80 mg/dl follow Hypoglycemia in Non- Adults Clinical Practice Guideline (CPG) [Order 3 End] [Order 4 Start] Name: Dextrose 50% injection 7.5-25 g Signed Summary: 7.5-25 g, Intravenous, ADMINISTER DIRECTED, Starting on Fri09/12/23 at 2105, Until Jocelyn 09/18/23 at 2146, Blood glucose <80 mg/dL, For patients who are not alert, are NPO, or are on IV insulin infusion administer as directed per Hypoglycemia in Non- Adults Clinical Practice Guideline. For Blood Glucose: 60-79 mg/dL administer 7.5 gm (15ml); 45-59 mg/dL administer 12.5 gm (25ml); less than 45mg/dL administer 25gm (50ml). ++ If additional dextrose 50% needed, contact pharmacy or [facility] ++ [Order 4 End] [Order 5 Start] Name: glucose (GLUTOSE) 40 % oral gel 1-2 Tube Signed Summary: 1-2 Tube, Oral, ADMINISTER DIRECTED, Starting on Fri09/12/23 at 2105, Until Fri09/18/23 at 2146, Blood glucose <80 mg/dL, For patients who are alert, able to tolerate PO intake and with intact cognitive status administer as directed per Hypoglycemia in Non- Adults Clinical Practice Guideline. For Blood Glucose: 60-79 mg/dL administer 1 tube; 45-59 mg/dl administer 1.5 tubes; less than 45 mg/dL administer 2 tubes. Each tube of 37.5g delivers 15g of carbohydrate. [Order 5 End] [Order 6 Start] Name: NOTIFY PHYSICIAN, Blood Glucose LESS THAN 80 mg/dl Signed Summary: Routine, CONTINUOUS, Starting on Fri09/12/23 at 2106, Until Specified, Who to Notify: Sales Team Manager, For all Blood Glucose LESS THAN 80 mg/dl, notify Sales Team Manager after treatment per Hypoglycemia in Non- Adults Clinical Practice Guideline [Order 6 End] [Order 7 Start] Name: Carbohydrate counts with meals Signed Summary: Routine, CONTINUOUS, Starting on Fri09/12/23 at 2106, Until Specified, Carbohydrate counts are to be done after each patient meal and with snack. [Order 7 End] Start: 09-12-2023 End: 09-13-2023 Start: 09-10-2023 End: 09-18-2023 take 4 mg intravenously every six hours as needed [Order 1 Start] Name: Ondansetron 4mg/2ml (ZOFRAN) injection 4 mg Signed Summary: 4 mg, Intravenous, EVERY 6 HOURS NEEDED, Starting on Fri09/10/23 at 1956, Until Jocelyn 09/18/23 at 2146, Nausea / Vomiting [Order 1 End] [Order 2 Start] Name: Ondansetron (ZOFRAN) tablet 4 mg Signed Summary: 4 mg, Oral, EVERY 6 HOURS NEEDED, Starting on Fri09/10/23 at 1956, Until Fri09/18/23 at 2146, Nausea / Vomiting [Order 2 End] Start: 09-04-2023 End: 11-07-2023 Start: 09-04-2023 Start: 08-15-2022 End: 09-06-2023 Start: 08-15-2022 Start: 06-13-2022 End: 11-07-2023 Start: 06-13-2022 Completed/Discontinued Medications Medication Drug Class(es) Dates Sig (Normalized) Sig (Original) acetaminophen 325 mg / HYDROcodone bitartrate 5 mg oral tablet (20 sources) Opioid Agonist Start: 07-05-2024 End: 07-20-2024 Hydrocodone-Acetami nophen 5-325 mg tablet Discontinued 1 {tbl} PO .every 6 hours as needed for pain 30 July 06, 2024 July 19, 2024 12:00am July 20, 2024 12:12am Start: 06-30-2024 End: 07-20-2024 Hydrocodone-Acetaminophen 5- 325 mg tablet Discontinued 1 {tbl} PO as needed for pain June 30, 2024 1:00am July 05, 2024 9:13am Start: 05-15-2024 End: 06-03-2024 Hydrocodone-Acetaminophen 5- 325 mg tablet Discontinued 1 {tbl} PO EVERY 6 HOURS NEEDED as needed for pain 20 May 20, 2024 June 02, 2024 1:00am June 03, 2024 1:10am Start: 05-15-2024 End: 06-03-2024 Start: 04-22-2024 End: 05-11-2024 Hydrocodone-Acetaminophen 5- 325 mg tablet Discontinued 1 {tbl} PO EVERY 6 HOURS NEEDED as needed for Pain 14 09May 06, 2024 May 10, 2024 1:00am May 11, 2024 1:09am Start: 04-22-2024 End: 05-11-2024 Start: 10-10-2022 End: 07-22-2023 Hydrocodone-Acetaminophen 5- 325 mg tablet Discontinued 1 {tbl} PO EVERY 6 HOURS as needed for pain 03 30October 10, 2022 July 22, 2023 2:55pm Start: 10-10-2022 End: 07-22-2023 Start: 10-10-2022 End: 07-22-2023 Start: 10-10-2022 End: 07-22-2023 take 1 tablet by mouth every six hours Hydrocodone-Acetaminophen Discontinued 1 TABLET PO EVERY 6 HOURS 03 30October 10, 2022 July 22, 2023 2:55pm aluminum hydroxide 40 mg/ml / magnesium hydroxide 40 mg/ml / simethicone 4 mg/ml oral suspension (1 source) Start: 09-10-2023 End: 09-18-2023 take 30 mL by mouth every six hours as needed Aluminum-Magnesium Hydroxide 225-200 mg/5 mL suspension (1 source) Start: 09-04-2023 End: 11-07-2023 take 1 mL by mouth every four hours Aluminum-Magnesium Hydroxide 225-200 mg/5 mL suspension Discontinued 30 mL PO Q4H September 04, 2023 12:00am November 07, 2023 11:25am ascorbic acid 1000 mg extended release oral tablet (20 sources) Vitamin C Start: 06-13-2022 End: 11-07-2023 take 1 tablet by mouth once daily Ascorbic Acid (Vitamin C) (Vitamin C) 1,000 mg Tablet Extended Release Discontinued 1000 mg PO DAILY June 13, 2022 1:00am November 07, 2023 11:25am On Hold: not on ECF sheet Start: 06-13-2022 take 1 tablet by stas th every twelve hours Ascorbic Acid (Vitamin C) (Vitamin C) 1,000 mg Tablet Extended Release Active 1000 MG PO Q12H June 13, 2022 1:00am benazepril hydrochloride 20 mg oral tablet (16 sources) Angiotensin Converting Enzyme Inhibitor Start: 08-14-2020 take 1 tablet by mouth twice daily benazepril (LOTENSIN) 20 mg tablet Take 20 mg by mouth twice daily. 0 08/14/2020 Active Comment on above: Take 20 mg by mouth twice daily. bisacodyl 10 mg rectal suppository (19 sources) Stimulant Laxative Start: 11-10-2020 End: 11-07-2023 Bisacodyl 10 mg suppository Discontinued 10 mg RC DAILY as needed for constipation September 04, 2023 12:00am November 07, 2023 11:27am Comment on above: 1 Suppository by REC TANIA route once daily as needed for constipation. cefdinir 300 mg oral capsule (4 sources) Cephalosporin Antibacterial Start: 09-04-2023 End: 11-07-2023 take 1 capsule by mouth twice daily Cefdinir 300 mg capsule Discontinued 300 mg PO TWICE A DAY September 04, 2023 12:00am November 07, 2023 11:20am Start: 03-19-2022 End: 03-24-2022 cefdinir 300 mg oral capsule Dose : 300 mg = 1 cap(s), Oral, qDay, X 5 day(s), # 5 cap(s), 0 Refill(s), 03/24/22 12:44:00 EST, Pharmacy: [facility] #[id number], 152.4, cm, 03/15/22 18:13:00 EST, Height, 59 Start Date: 03/19/22 Stop Date: 03/24/22 Status: Ordered cephalexin 500 mg oral capsule (8 sources) Cephalosporin Antibacterial Start: 03-22-2021 take 1 capsule by mouth twice daily cephALEXin (KEFLEX) 500 mg capsule Take 1 capsule by mouth twice daily. Take around the time of catheter removal -- start taking on , 03/22/21 and continue taking until gone. 6 capsule 0 03/22/2021 Active Comment on above: Take 1 capsule by mo ut twice daily. Take around the time of catheter removal -- start taking on , 03/22/21 and continue taking until gone. Clonidine 0.1 mg/24 hr patch weekly (1 source) Start: 11-07-2023 End: 12-09-2023 Clonidine 0.1 mg/24 hr patch weekly Discontinued 1 NMA TD EVERY WEEK November 07, 2023 12:00am December 09, 2023 2:08pm docusate sodium 100 mg oral capsule (1 source) End: 09-18-2023 doxazosin 2 mg oral tablet (20 sources) alpha-Adrenergic Sabas Start: 06-13-2022 End: 11-07-2023 take 1 tablet by mouth once daily Doxazosin (Cardura) 2 mg Tablet Discontinued 2 mg PO DAILY June 13, 2022 1:00am June 20, 2022 4:52pm Start: 03-19-2022 End: 06-17-2022 Cardura 1 mg oral tablet Dos e : 1 mg = 1 tab(s), Oral, BID, # 60 tab(s), 2 Refill(s), Pharmacy: [facility] #[id number], 152.4, cm, 03/15/22 18:13:00 EST, Height Start Date: 03/19/22 Stop Date: 06/17/22 Status: Ordered Start: 03-15-2022 End: 11-07-2023 take 1 tablet by mouth twice daily Doxazosin (Cardura) 2 mg tablet Discontinued 2 mg PO TWICE A DAY June 20, 2022 4:50pm August 15, 2022 1:57pm Start: 01-18-2022 Cardura 2 mg o ral tablet Dose : 2 mg = 1 tab(s), Oral, BID, # 60 tab(s), 0 Refill(s), Pharmacy: [facility] #[id number], 149.9, cm, 01/15/22 13:58:00 EDT, Height Start Date: 01/18/22 Status: Ordered End: 09-11-2023 Drug or medicament (substanc e) (2 sources) Start: 09-15-2023 End: 09-15-2023 End: 09-18-2023 take 30 mL by mouth every four hours as needed famotidine 40 mg oral tablet (20 sources) Histamine-2 Receptor Antagonist Start: 02-13-2021 End: 11-07-2023 take 1 tablet by mouth once daily Famotidine 40 mg Tablet Discontinued 40 mg PO DAILY June 13, 2022 1:00am November 07, 2023 11:28am On Hold: Order Changed End: 09-11-2023 Comment on above: Take 40 mg by mouth once daily. folic acid 1 mg oral tablet (20 sources) Start: 12-14-2012 End: 11-07-2023 take 1 tablet by mouth once daily Folic Acid 1 mg Tablet Discontinued 1 mg PO DAILY June 13, 2022 1:00am November 07, 2023 11:28am On Hold: not on ecf sheet furosemide 40 mg oral tablet (20 sources) Loop Diuretic Start: 08-15-2022 End: 08-15-2022 take 1 tablet by mouth every week Furosemide (Lasix) 40 mg Tablet Discontinued 40 mg PO EVERY WEEK August 15, 2022 12:00am August 15, 2022 1:25pm Start: 08-15-2022 End: 11-07-2023 Furosemide (Lasix) 40 mg tab let Discontinued 60 mg PO TWICE A DAY August 15, 2022 1:24pm November 07, 2023 11:28am On Hold: Ordered Start: 08-15-2022 End: 11-07-2023 Start: 02-13-2021 furosemide 20 mg oral tablet Dose : 20 mg = 1 tab(s), Oral, qDay, # 30 tab(s), 0 Refill(s) Start Date: 02/13/21 Status: Ordered Comment on above: Take 20 mg by mouth every other day. glucose 0.774 mg/mg oral gel (1 source) End: 09-18-2023 guaiFENesin 20 mg/ml oral solution (3 sources) Start: 09-06-2023 End: 11-07-2023 take 200 mg by mouth every four hours as needed for cough Guaifenesin 100 mg/5 mL liquid Discontinued 200 mg PO Q4H as needed for cough September 06, 2023 12:00am November 07, 2023 11:28am icosapent ethyl 1000 mg oral capsule (20 sources) Start: 08-15-2022 End: 11-07-2023 Icosapent Ethyl (Vascepa) 1 gram capsule Discontinued 2 g PO TWICE A DAY 180 August 15, 2022 12:00am November 07, 2023 11:29am 3 ml insulin glargine 100 unt/ml pen injector (20 sources) Insulin Analog Start: 08-15-2022 End: 08-15-2022 Insulin Glargine (Lantus Solostar U-100 Insulin) 100 unit/mL (3 mL) insulin pen Discontinued 9 U SC EVERY EVENING August 15, 2022 1:25pm August 15, 2022 1:45pm Start: 06-13-2022 End: 06-05-2023 Insulin Glargine (Lantus Itzel ostar U-100 Insulin) 100 unit/mL (3 mL) insulin pen Discontinued 7 U SC EVERY EVENING August 15, 2022 1:45pm June 05, 2023 3:01pm Start: 06-13-2022 Insulin Glargi ne (Lantus Solostar U-100 Insulin) 100 unit/mL (3 mL) Insulin Pen Active 9 UNIT SC EVERY EVENING June 13, 2022 1:00am Start: 03-15-2022 End: 06-05-2023 Start: 09-29-2020 inject 1 dose by sub cutaneous injection once daily at bedtime Lantus Dose : 9 unit(s) =, Subcutaneous, qHS, 0 Refill(s) Start Date: 09/29/20 Status: Ordered Start: 09-29-2020 inject 1 dose by sub cutaneous injection once daily Lantus Dose : 8 unit(s) =, Subcutaneous, qDay, 0 Refill(s) Start Date: 09/29/20 Status: Ordered inject 8 [IU] by sub cutaneous injection once daily at bedtime insulin glargine (LANTUS SOLOSTAR U-100 INSULIN) 100 unit/mL (3 mL) Inject 8 Units subcutaneously daily at bedtime. 0 Active Comment on above: Inject 8 Units subcu taneously daily at bedtime. Juxta Lite (18 sources) Start: 08-15-2022 End: 09-06-2023 Juxta Lite Discontinued 0 .Route .MEDSUPPLY August 15, 2022 12:00am September 06, 2023 4:43pm As directed Start: 08-15-2022 Juxta Lite Act teresa 0 .Route .MEDSUPPLY August 14, 2022 11:00pm As directed Start: 08-15-2022 Juxta Lite Act teresa 0 .Route .MEDSUPPLY August 15, 2022 12:00am As directed LORazepam 0.5 mg oral tablet (2 sources) Benzodiazepine Start: 09-06-2023 End: 11-07-2023 take 1 tablet by mouth once daily as needed for anxiety Lorazepam 0.5 mg tablet Discontinued 0.5 mg PO DAILY as needed for anxiety on dialysis September 06, 2023 12:00am November 07, 2023 11:30am magnesium hydroxide 80 mg/ml oral suspension (1 source) End: 09-18-2023 take 30 mL by mouth every twenty-four hours as needed 100 ml magnesium sulfate 10 mg/ml injection (1 source) Start: 09-11-2023 End: 09-11-2023 melatonin 3 mg oral tablet (5 sources) Start: 09-10-2023 End: 09-18-2023 Start: 09-10-2023 End: 09-18-2023 Start: 09-06-2023 End: 11-07-2023 take 1 capsule by mouth at bedtime Melatonin 3 mg capsule Discontinued 3 mg PO AT BEDTIME September 06, 2023 12:00am November 07, 2023 11:30am Start: 09-06-2023 End: 11-07-2023 Multivitamin Tablet (1 source) Start: 06-13-2022 End: 11-07-2023 Multivitamin Tablet Discontinued 1 {tbl} PO DAILY June 13, 2022 1:00am November 07, 2023 11:30am 24 hr NIFEdipine 60 mg extended release oral tablet (20 sources) Dihydropyridine Calcium Channel Sabas Start: 09-11-2023 End: 09-13-2023 Start: 07-19-2023 End: 09-06-2023 take 1 tablet by mouth twice daily Nifedipine 60 mg Tablet Extended Release 24hr Discontinued 60 mg PO TWICE A DAY 60 July 19, 2023 12:00am September 06, 2023 4:42pm Start: 07-16-2023 End: 05-19-2024 take 1 tablet by mouth twice daily Nifedipine 60 mg tablet extended release Discontinued 60 mg PO TWICE A DAY 180 February 11, 2024 11:28am May 19, 2024 3:06pm Start: 01-30-2023 End: 06-30-2023 take 1 tablet by mouth every twenty-four hours Nifedipine 30 mg tablet extended release 24hr Discontinued mg PO January 30, 2023 12:00am June 30, 2023 11:27am Start: 01-30-2023 End: 07-16-2023 take 1 tablet by mouth twice daily Nifedipine 30 mg tablet extended release 24hr Discontinued 30 mg PO TWICE A DAY June 30, 2023 11:27am July 16, 2023 9:21am Start: 01-30-2023 End: 06-30-2023 Nifedipine Discontinued MG P O January 30, 2023 12:00am June 30, 2023 11:27am oxyCODONE hydrochloride 5 mg oral tablet (1 source) Opioid Agonist Start: 09-13-2023 End: 09-18-2023 take 5 mg by mouth every four hours as needed polyethylene glycol 3350 06231 mg powder for oral solution (4 sources) Osmotic Laxative Start: 09-06-2023 End: 11-07-2023 20 ml sodium chloride 9 mg/ml injection (15 sources) Start: 09-12-2023 End: 09-12-2023 Start: 09-10-2023 End: 09-18-2023 Start: 04-07-2023 End: 04-07-2023 0.9 % sodium chloride (NACL 0.9%) infusion Administer at rate defined per CT contrast administration specifications. To be provided with radiology test. 150 mL 0 04/08/2023 Active Start: 10-27-2020 End: 01-26-2022 sodium chloride 0.9 % (flush ) 10 mL (BD POSIFLUSH) Comment on above: Administer at rate d efined per CT contrast administration specifications. To be provided with radiology test. sodium phosphate, dibasic 35.5 mg/ml / sodium phosphate, monobasic 96.4 mg/ml enema (1 source) End: 09-18-2023 sucralfate 1000 mg oral tablet (9 sources) Aluminum Complex Start: 07-01-2024 sucralfate 1 g oral tablet Dose : 1 gram(s) = 1 tab(s), Oral, BID, # 180 tab(s), 0 Refill(s) Start Date: 07/01/24 Status: Ordered Quantity: 180.0 Unit: tab(s) Repeat number: 1 Start: 05-19-2024 take 1 tablet by stas th twice daily Sucralfate 1 gram Tablet Active 1 g PO BID@0700,1600 120 60 May 19, 2024 1:00am Start: 09-15-2023 End: 09-17-2023 valACYclovir 500 mg oral tablet (2 sources) Herpesvirus Nucleoside Analog DNA Polymerase Inhibitor, Herpes Simplex Virus Nucleoside Analog DNA Polymerase Inhibitor, Herpes Zoster Virus Nucleoside Analog DNA Polymerase Inhibitor Start: 04-22-2024 End: 05-15-2024 take 1 tablet by mouth once daily Valacyclovir 500 mg tablet Discontinued 500 mg PO DAILY April 22, 2024 1:00am May 15, 2024 2:39am on dialysis days, take after dialysis vancomycin 125 mg oral capsule (2 sources) Glycopeptide Antibacterial Start: 06-15-2024 End: 06-25-2024 take 1 capsule by mouth every six hours Vancomycin 125 mg capsule Discontinued 125 mg PO EVERY 6 HOURS 40 10 June 15, 2024 1:00am June 24, 2024 1:00am June 25, 2024 1:12am (1 source) Start: 09-14-2023 End: 09-18-2023 (1 source) Start: 09-12-2023 End: 09-12-2023 (1 source) Start: 09-12-2023 End: 09-12-2023 Problems Active Problems Problem Classification Problem Date Documented Date Episodic/Chronic Abdominal pain (4 sources) Abdominal pain; Translations: [Unspecified abdominal pain] 09-04-2023 Episodic Acute and unspecified renal failure (20 sources) Renal failure syndrome; Translations: [Unspecified kidney failure] 08-01-2022 Chronic Acute myocardial infarction (3 sources) Myocardial infarction; Translations: [Myocardial infarction type 2] 05-15-2024 Chronic Cancer of bladder (20 sources) Malignant tumor of urinary bladder; Translations: [Malignant neoplasm of bladder, unspecified] Onset: 1 03-12-2021 Chronic Cancer of bladder (1 source) History of malignant neoplasm of bladder; Translations: [Personal history of malignant neoplasm of bladder] Episodic Cancer of kidney and renal pelvis (11 sources) Malignant tumor of renal pelvis; 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] Onset: 4 Chronic Cancer of kidney and renal pelvis (1 source) History of malignant neoplasm of kidney; Translations: [Personal history of other malignant neoplasm of kidney] Episodic Cancer of other urinary organs (3 sources) Transitional cell carcinoma of right ureter; Translations: [Malignant neoplasm of right ureter] Chronic Chronic kidney disease (20 sources) Chronic kidney disease stage 3B ; Translations: [Stage 3b chronic kidney disease] Onset: 1 03-08-2021 Chronic Comment on above: MOWEFR Chronic kidney disease (4 sources) Chronic kidney disease; Translations: [Chronic kidney disease, stage 3a] Onset: 2 Coagulation and hemorrhagic disorders (2 sources) Thrombocytopenic disorder; Translations: [Thrombocytopenia, unspecified] Onset: 4 09-18-2023 Chronic Complication of device; implant or graft (12 sources) Dialysis finding; Translations: [Other specified complication of vascular prosthetic devices, implants and grafts, initial encounter] Onset: 4 01-30-2023 Chronic Conditions associated with dizziness or vertigo (20 sources) Dizziness of unknown cause; Translations: [Dizziness] Onset: 3 10-20-2015 Episodic Congestive heart failure; nonhypertensive (20 sources) Chronic diastolic heart failure; Translations: [Acute on chronic diastolic heart failure] Onset: 2 09-27-2021 Chronic Comment on above: diastolic congestive Deficiency and other anemia (1 source) Anemia of chronic renal failure; Translations: [Anemia in chronic kidney disease] Chronic Deficiency and other anemia (3 sources) Anemia in chronic kidney disease; Translations: [Anemia in chronic kidney disease] Onset: 1 Chronic Deficiency and other anemia (20 sources) Anemia; Translations: [Anemia, unspecified] Onset: 1 03-08-2021 Episodic Deficiency and other anemia (3 sources) Anemia, unspecified; Translations: [Anemia, unspecified] Onset: 5 09-04-2023 Episodic Diabetes mellitus with complications (2 sources) Chronic kidney disease due to type 2 diabetes mellitus; Translations: [Type 2 diabetes mellitus with diabetic chronic kidney disease] Onset: 1 Chronic Diabetes mellitus without complication (20 sources) Type 2 diabetes mellitus; Translations: [Diabetes mellitus] 02-13-2021 Chronic Comment on above: NO INSULIN FOR 2 YRS Diseases of white blood cells (1 source) Leukocytosis; Translations: [Elevated white blood cell count, unspecified] Chronic Disorders of lipid metabolism (20 sources) Hyperlipidemia; Translations: [Hypercholesterolemia] Onset: 1 02-13-2021 Chronic Esophageal disorders (17 sources) Gastroesophageal reflux disease; Translations: [Gastro-esophageal reflux disease without esophagitis] Onset: 1 10-25-2020 Chronic Essential hypertension (20 sources) Hypertensive disorder; Translations: [Essential (primary) hypertension] Onset: 1 10-25-2020 Chronic Fluid and electrolyte disorders (20 sources) Hypo-osmolality and or hyponatremia; Translations: [Hypo-osmolality and hyponatremia] Onset: 4 Episodic Gastroduodenal ulcer (except hemorrhage) (4 sources) Gastric ulcer; Translations: [Gastric ulcer, unspecified as acute or chronic, without hemorrhage or perforation] 06-10-2024 Chronic Glaucoma (20 sources) Glaucoma; Translations: [Unspecified glaucoma] 02-13-2021 Chronic Heart valve disorders (7 sources) Mitral valve regurgitation; Translations: [Nonrheumatic mitral (valve) insufficiency] 06-30-2023 Chronic Heart valve disorders (8 sources) Cardiac murmur, unspecified; Translations: [Heart murmur] Onset: 4 06-30-2023 Episodic Hypertension with complications and secondary hypertension (19 sources) 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; Translations: [Hypertensive heart and chronic kidney disease with heart failure and stage 1 through stage 4 chronic kidney disease, or unspecified chronic kidney disease] Onset: 4 Chronic Malignant neoplasm without specification of site (7 sources) Malignant neoplastic disease; Translations: [Malignant (primary) neoplasm, unspecified] 06-30-2023 Chronic Comment on above: KIDNEY Nausea and vomiting (4 sources) Nausea; Translations: [Nausea] 09-04-2023 Episodic Neoplasms of unspecified nature or uncertain behavior (15 sources) Neoplasm of bladder; Translations: [Neoplasm of unspecified behavior of bladder] Onset: 1 Episodic Osteoarthritis (15 sources) Arthritis; Translations: [Unspecified osteoarthritis, unspecified site] 10-25-2020 Chronic Osteoporosis (20 sources) Osteoporosis; Translations: [Age-related osteoporosis without current pathological fracture] Onset: 5 08-15-2022 Chronic Other aftercare (2 sources) Post-discharge follow-up; Translations: [Encounter for follow-up examination after completed treatment for conditions other than malignant neoplasm] 10-03-2023 Episodic Other and ill-defined heart disease (3 sources) Left ventricular cardiac dysfunction; Translations: [Heart disease, unspecified] 05-17-2024 Chronic Other and ill-defined heart disease (1 source) Heart disease, unspecified; Translations: [Heart disease, unspecified] Onset: 5 Chronic Other bone disease and musculoskeletal deformities (20 sources) Osteopenia 02-13-2021 Episodic Other connective tissue disease (7 sources) Fall; Translations: [Repeated falls] 08-04-2023 Episodic Other diseases of kidney and ureters (2 sources) Secondary hyperparathyroidism of renal origin; Translations: [Secondary hyperparathyroidism of renal origin] Onset: 2 Chronic Other disorders of stomach and duodenum (1 source) Mass of duodenum; Translations: [Other diseases of stomach and duodenum] 09-18-2023 Episodic Other disorders of stomach and duodenum (2 sources) Other diseases of stomach and duodenum; Translations: [Other diseases of stomach and duodenum] Onset: 4 Episodic Other gastrointestinal disorders (4 sources) Loose stool; Translations: [Other fecal abnormalities] 06-10-2024 Episodic Other injuries and conditions due to external causes (5 sources) Closed injury of head; Translations: [Unspecified injury of head, initial encounter] 08-04-2023 Episodic Other lower respiratory disease (19 sources) Dyspnea on exertion 09-27-2021 Episodic Other lower respiratory disease (2 sources) Dyspnea; Translations: [Dyspnea, unspecified] 10-03-2023 Episodic Other lower respiratory disease (3 sources) Respiratory insufficiency; Translations: [Other abnormalities of breathing] 05-27-2024 Episodic Other nervous system disorders (15 sources) Disorder of brain; Translations: [Encephalopathy, unspecified] Onset: 4 Resolved: 4 07-16-2023 Chronic Other nervous system disorders (7 sources) Encephalopathy, unspecified; Translations: [Encephalopathy, unspecified] Onset: 4 07-16-2023 Chronic Other nervous system disorders (2 sources) Chronic pain; Translations: [Other chronic pain] 07-05-2024 Chronic Other non-traumatic joint disorders (1 source) Pain of right shoulder joint; Translations: [Pain in right shoulder] Episodic Other nutritional; endocrine; and metabolic disorders (19 sources) Body mass index 25-29 - overweight 09-27-2021 Episodic Pancreatic disorders (not diabetes) (3 sources) Cyst of pancreas; Translations: [Cyst of pancreas] Onset: 4 09-18-2023 Episodic Sandra-; endo-; and myocarditis; cardiomyopathy (except that caused by tuberculosis or sexually transmitted disease) (14 sources) Cardiomyopathy; Translations: [Cardiomyopathy, unspecified] 06-05-2023 Chronic Pleurisy; pneumothorax; pulmonary collapse (8 sources) Pleural effusion; Translations: [Pleural effusion, not elsewhere classified] Onset: 5 05-15-2024 Episodic Pneumonia (except that caused by tuberculosis or sexually transmitted disease) (1 source) Pneumonia; Translations: [Pneumonia, unspecified organism] Episodic Residual codes; unclassified (3 sources) Absent kidney; Translations: [Acquired absence of kidney] Onset: 5 Episodic Residual codes; unclassified (1 source) H/O: chemotherapy; Translations: [Personal history of antineoplastic chemotherapy] Episodic Residual codes; unclassified (20 sources) Bilateral lower limb edema; Translations: [Localized edema] 08-15-2022 Episodic Residual codes; unclassified (12 sources) Localized edema; Translations: [Edema] 08-15-2022 Episodic Residual codes; unclassified (8 sources) History of transurethral resection of bladder tumor; Translations: [Other specified postprocedural states] 06-05-2023 Episodic Residual codes; unclassified (6 sources) Other specified postprocedural states; Translations: [Personal history of surgery to other organs] 06-05-2023 Episodic Residual codes; unclassified (1 source) Altered mental status, unspecified; Translations: [AMS (altered mental status)] Onset: 4 Episodic Respiratory failure; insufficiency; arrest (adult) (4 sources) Acute respiratory failure; Translations: [Acute respiratory failure with hypoxia] Onset: 5 05-15-2024 Episodic Retinal detachments; defects; vascular occlusion; and retinopathy (20 sources) Degenerative disorder of macula ; Translations: [Unspecified macular degeneration] Onset: 4 08-15-2022 Chronic Rheumatoid arthritis and related disease (20 sources) Rheumatoid arthritis; Translations: [Rheumatoid arthritis, unspecified] 02-13-2021 Chronic Superficial injury; contusion (5 sources) Abrasion of scalp; Translations: [Abrasion of scalp, initial encounter] 08-04-2023 Episodic Thyroid disorders (20 sources) Hypothyroidism; Translations: [Hypothyroidism, unspecified] Onset: 1 10-25-2020 Chronic Unclassified (7 sources) History of nephrectomy 06-17-2024 Unclassified (1 source) Malignant neoplasm of urinary bladder Unclassified (1 source) Acidosis, unspecified; Translations: [Acidosis, unspecified] Onset: 5 Urinary tract infections (14 sources) Urinary tract infectious disease; Translations: [Urinary tract infection, site not specified] Onset: 3 Episodic Past or Other Problems Problem Classification Problem Date Documented Da te Episodic/Chronic Acute and unspecified renal failure (2 sources) Acute kidney failure, unspecified; Translations: [Acute kidney failure, unspecified] Onset: 06-18-2021 Episodic Deficiency and other anemia (2 sources) Other iron deficiency anemias; Translations: [Other iron deficiency anemias] Onset: 06-28-2021 Episodic Fever of unknown origin (20 sources) Fever Onset: 12-14-2012 12-15-2012 Episodic Genitourinary symptoms and ill-defined conditions (18 sources) Microscopic hematuria; Translations: [Other microscopic hematuria] Onset: 05-05-2023 Episodic Other aftercare (13 sources) H/O: malignant neoplasm; Translations: [Encounter for follow-up examination after completed treatment for malignant neoplasm] Onset: 11-03-2020 11-03-2020 Episodic Other aftercare (3 sources) H/O: carcinoma; Translations: [Encounter for follow-up examination after completed treatment for malignant neoplasm] Onset: 11-03-2020 11-03-2020 Episodic Other gastrointestinal disorders (1 source) Other fecal abnormalities; Translations: [Other fecal abnormalities] Onset: 06-10-2024 Episodic Other lower respiratory disease (1 source) Other abnormalities of breathing; Translations: [Other abnormalities of breathing] Onset: 05-26-2024 Episodic Other non-traumatic joint disorders (3 sources) Pain in right shoulder; Translations: [Right shoulder pain] Onset: 05-26-2024 10-03-2023 Episodic Other screening for suspected conditions (not mental disorders or infectious disease) (5 sources) Serum creatinine raised; Translations: [Other specified abnormal findings of blood chemistry] Onset: 05-26-2024 Episodic Spondylosis; intervertebral disc disorders; other back problems (20 sources) Spinal stenosis; Translations: [Spinal stenosis of lumbar region] Onset: 07-30-2011 02-13-2021 Episodic Viral infection (6 sources) Lumbar herpes zoster infection ; Translations: [Zoster without complications] Onset: 05-19-2024 04-30-2024 Episodic Results Test Name Value Interpretation Reference Range Facility Urgent Care Visit Reporton 0 10-07-2024 Urgent Care Visit Report Normal [facility] .Auto Diffon 09-28-2024 Basophil, Absolute 0.1 10 3/mcL Normal 0.0-0.3 [facility] Comment on above: Performed By: #### C BC, GFR, AGA, ANEU, TSH, CMP, LD, ADIFF #### [facility] [address] [place] [id number] Basophils/100 WBC (Bld) 0.7 % Normal 0.0-2.5 [facility] Comment on above: Performed By: #### C BC, GFR, AGA, ANEU, TSH, CMP, LD, ADIFF #### [address] [address] Eosinophil, Absolute 0.3 10 3/mcL Normal 0.0-0.7 [facility] Comment on above: Performed By: #### C BC, GFR, AGA, ANEU, TSH, CMP, LD, ADIFF #### [address] [address] Eosinophils/100 WBC (Bld) 3.3 % Normal 0.0-6.0 [facility] Comment on above: Performed By: #### C BC, GFR, AGA, ANEU, TSH, CMP, LD, ADIFF #### [address] [address] Lymphocyte, Absolute 0.6 10 3/mcL Low 0.9-4.3 [facility] Comment on above: Performed By: #### C BC, GFR, AGA, ANEU, TSH, CMP, LD, ADIFF #### [address] [address] Lymphocytes/100 WBC (Bld) 8.2 % Low 20.0-40.0 [facility] Comment on above: Performed By: #### C BC, GFR, AGA, ANEU, TSH, CMP, LD, ADIFF #### [address] [address] Monocyte, Absolute 0.6 10 3/mcL Normal 0.1-1.4 [facility] Comment on above: Performed By: #### C BC, GFR, AGA, ANEU, TSH, CMP, LD, ADIFF #### [address] [address] Monocytes/100 WBC (Bld) 7.4 % Normal 2.0-13.0 [facility] Comment on above: Performed By: #### C BC, GFR, AGA, ANEU, TSH, CMP, LD, ADIFF #### [address] [address] Neutrophils/100 WBC (Bld) 80.4 % High 50.0-75.0 [facility] Comment on above: Performed By: #### C BC, GFR, AGA, ANEU, TSH, CMP, LD, ADIFF #### [address] [address] .GFRon 09-28-2024 Estimated Glomerular Filtration Rate 10 ml/min/1.73sqm Normal [facility] Comment on above: Result Comment: Stages of Chronic Kidney Disease (CKD) Stage Description eGFR(ml/min/1.73 sq.m.) CKD 1 Normal kidney function or >=90 normal kindney function with possible kidney damage (ex. Proteinuria) CKD 2 Kidney damage with mild loss 60-89 of kidney function CKD 3a Mild to moderate loss of kidney 45-59 function CKD 3b Moderate to severe loss of 30-44 of kindey function CKD 4 Severe loss of kidney function 15-29 CKD 5 Kidney failure <15 Note: (go live 2024) the eGFR calculation was updated to the 2020 CKD-EPI creatinine equation without a race factor to calculate the eGFR results. Performed By: #### C BC, GFR, AGA, ANEU, TSH, CMP, LD, ADIFF #### [place] [address] .NEUABSon 09-28-2024 Neutrophil, Absolute 6.2 10 3/mcL Normal 2.3-8.1 [facility] Comment on above: Performed By: #### C BC, GFR, AGA, ANEU, TSH, CMP, LD, ADIFF #### [place] [address] CBCon 09-28-2024 Erythrocyte distribution width (RBC) [Ratio] 18.7 % High 11.5-15.5 [facility] Comment on above: Performed By: #### C BC, GFR, AGA, ANEU, TSH, CMP, LD, ADIFF #### [place] [address] Hematocrit (Bld) [Volume fraction] 35.9 % Normal 34.0-46.0 [facility] Comment on above: Performed By: #### C BC, GFR, AGA, ANEU, TSH, CMP, LD, ADIFF #### [place] [address] Hgb 11.6 G/dL Low 12.0-16.0 [facility] Comment on above: Performed By: #### C BC, GFR, AGA, ANEU, TSH, CMP, LD, ADIFF #### [place] [id number] MCH (RBC) [Entitic mass] 28.7 pg Normal 27.0-33.0 [facility] Comment on above: Performed By: #### C BC, GFR, AGA, ANEU, TSH, CMP, LD, ADIFF #### [place] [id number] MCHC 32.3 G/dL Normal 32.0-36.0 [facility] Comment on above: Performed By: #### C BC, GFR, AGA, ANEU, TSH, CMP, LD, ADIFF #### [place] [address] MCV (RBC) [Entitic vol] 88.8 fL Normal 80.0-99.0 [facility] Comment on above: Performed By: #### C BC, GFR, AGA, ANEU, TSH, CMP, LD, ADIFF #### [place] [address] Platelet 142 10 3/mcL Low 150-450 [facility] Comment on above: Performed By: #### C BC, GFR, AGA, ANEU, TSH, CMP, LD, ADIFF #### [place] [address] Platelet mean volume (Bld) [Entitic vol] 8.3 fL Normal 6.6-10.5 [facility] Comment on above: Performed By: #### C BC, GFR, AGA, ANEU, TSH, CMP, LD, ADIFF #### [place] [address] RBC 4.05 10 6/mcL Low 4.10-5.30 [facility] Comment on above: Performed By: #### C BC, GFR, AGA, ANEU, TSH, CMP, LD, ADIFF #### [place] [address] WBC 7.7 10 3/mcL Normal 4.5-10.8 [facility] Comment on above: Performed By: #### C BC, GFR, AGA, ANEU, TSH, CMP, LD, ADIFF #### [address] [address] CMPon 09-28-2024 Albumin Level 2.6 G/dL Low 3.2-4.8 [facility] Comment on above: Performed By: #### C BC, GFR, AGA, ANEU, TSH, CMP, LD, ADIFF #### [place] [id number] Albumin/Globulin [Mass ratio] 1.0 {ratio} Normal 0.9-1.6 [facility] Comment on above: Performed By: #### C BC, GFR, AGA, ANEU, TSH, CMP, LD, ADIFF #### [place] [id number] ALP [Catalytic activity/Vol] 88 U/L Normal 38-126 [facility] Comment on above: Performed By: #### C BC, GFR, AGA, ANEU, TSH, CMP, LD, ADIFF #### [place] [address] ALT/SGPT <7 Low 10-49 [facility] Comment on above: Performed By: #### C BC, GFR, AGA, ANEU, TSH, CMP, LD, ADIFF #### [place] [id number] AST [Catalytic activity/Vol] 18 U/L Normal 8-34 [facility] Comment on above: Performed By: #### C BC, GFR, AGA, ANEU, TSH, CMP, LD, ADIFF #### [place] [address] Bili Total <0.20 Normal 0.20-1.20 [facility] Comment on above: Result Comment: Use of this assay is not recommended for patients undergoing treatment with eltrombopag due to the potential for falsely elevated results. Performed By: #### C BC, GFR, AGA, ANEU, TSH, CMP, LD, ADIFF #### [place] [address] BUN/Creatinine Ratio 7.6 ratio Low 10.0-22.0 [facility] Comment on above: Performed By: #### C BC, GFR, AGA, ANEU, TSH, CMP, LD, ADIFF #### [address] [address] Calcium [Mass/Vol] 9.3 mg/dL Normal 8.7-10.4 [facility] Comment on above: Performed By: #### C BC, GFR, AGA, ANEU, TSH, CMP, LD, ADIFF #### [address] [address] Chloride [Moles/Vol] 97 mmol/L Low 98-110 [facility] Comment on above: Performed By: #### C BC, GFR, AGA, ANEU, TSH, CMP, LD, ADIFF #### [address] [address] CO2 [Moles/Vol] 29 mmol/L Normal 22-32 [facility] Comment on above: Performed By: #### C BC, GFR, AGA, ANEU, TSH, CMP, LD, ADIFF #### [place] [id number] Creatinine [Mass/Vol] 4.34 mg/dL High 0.50-1.20 [facility] Comment on above: Result Comment: Test ing performed on Bapul analyzer using enzymatic creatinine methodology. Performed By: #### C BC, GFR, AGA, ANEU, TSH, CMP, LD, ADIFF #### [place] [id number] Electrolyte Balance 9.0 mEq/L Normal 4.0-15.0 [facility] Comment on above: Performed By: #### C BC, GFR, AGA, ANEU, TSH, CMP, LD, ADIFF #### [address] [address] Globulin 2.7 G/dL Normal 2.5-4.2 [facility] Comment on above: Performed By: #### C BC, GFR, AGA, ANEU, TSH, CMP, LD, ADIFF #### [place] [phone] Glucose [Mass/Vol] 157 mg/dL High 82-115 [facility] Comment on above: Performed By: #### C BC, GFR, AGA, ANEU, TSH, CMP, LD, ADIFF #### [address] [address] Potassium [Moles/Vol] 5.2 mmol/L High 3.5-5.0 [facility] Comment on above: Performed By: #### C BC, GFR, AGA, ANEU, TSH, CMP, LD, ADIFF #### [place] [id number] Sodium [Moles/Vol] 135 mmol/L Low 136-145 [facility] Comment on above: Performed By: #### C BC, GFR, AGA, ANEU, TSH, CMP, LD, ADIFF #### [address] [address] Total Protein 5.3 G/dL Low 5.7-8.2 [facility] Comment on above: Performed By: #### C BC, GFR, AGA, ANEU, TSH, CMP, LD, ADIFF #### [place] [address] Urea nitrogen [Mass/Vol] 33.0 mg/dL High 8.0-22.0 [facility] Comment on above: Performed By: #### C BC, GFR, AGA, ANEU, TSH, CMP, LD, ADIFF #### [address] [address] LABORATORYOrdered By: SYSTEM SYSTEM on 09-28-2024 Albumin BCP dye [Mass/Vol] 2.6 G/dL Low 3.2 - 4.8 G/dL ADM SS Albumin/Globulin [Mass ratio] 1.0 {ratio} Normal 0.9 - 1.6 ratio ADM SS ALP [Catalytic activity/Vol] 88 U/L Normal 38 - 126 U/L ADM SS ALT No additional P-5'-P [Catalytic activity/Vol] U/L 1 Low 10 - 49 U/L ADM SS AST [Catalytic activity/Vol] 18 U/L Normal 8 - 34 U/L ADM SS Basophils (Bld) [#/Vol] 0.1 103/mcL Normal 0.0 - 0.3 10^3/mcL Workflow SS Basophils/100 WBC (Bld) 0.7 % Normal 0.0 - 2.5 % Workflow SS Bilirubin [Mass/Vol] mg/dL Normal 0.20 - 1.20 mg/dL ADM SS Comment on above: Interpretive Data: U se of this assay is not recommended for patients undergoing treatment with eltrombopag due to the potential for falsely elevated results. Calcium [Mass/Vol] 9.3 mg/dL Normal 8.7 - 10. 4 mg/dL ADM SS Chloride [Moles/Vol] 97 mmol/L Low 98 - 11 0 mEq/L ADM SS CO2 [Moles/Vol] 29 mmol/L Normal 22 - 32 mEq/L ADM SS Creatinine [Mass/Vol] 4.34 mg/dL High 0.50 - 1.20 mg/dL ADM SS Comment on above: Interpretive Data: T esting performed on Bapul analyzer using enzymatic creatinine methodology. Electrolyte Balance 9.0 mEq/L Normal 4.0 - 15 .0 mEq/L ADM SS Eosinophils (Bld) [#/Vol] 0.3 103/mcL Normal 0.0 - 0.7 10^3/mcL Workflow SS Eosinophils/100 WBC (Bld) 3.3 % Normal 0.0 - 6.0 % Workflow SS Erythrocyte distribution width (RBC) [Ratio] 18.7 % High 11.5 - 15.5 % Workflow SS Estimated Glomerular Filtration Rate 10 ml/min/1.73sqm Invalid Interpretation Code ADM SS Comment on above: Interpretive Data: Stages of Chronic Kidney Disease (CKD) Stage Description eGFR(ml/min/1.73 sq.m.) CKD 1 Normal kidney function or >=90 normal kindney function with possible kidney damage (ex. Proteinuria) CKD 2 Kidney damage with mild loss 60-89 of kidney function CKD 3a Mild to moderate loss of kidney 45-59 function CKD 3b Moderate to severe loss of 30-44 of kindey function CKD 4 Severe loss of kidney function 15-29 CKD 5 Kidney failure <15 Note: (go live 2024) the eGFR calculation was updated to the 2020 CKD-EPI creatinine equation without a race factor to calculate the eGFR results. Globulin 2.7 G/dL Normal 2.5 - 4.2 G/dL ADM SS Glucose [Mass/Vol] 157 mg/dL High 82 - 115 mg/dL AH ADM SS Hematocrit (Bld) [Volume fraction] 35.9 % Normal 34.0 - 46.0 % AH Workflow SS Hemoglobin (Bld) [Mass/Vol] 11.6 G/dL Low 12.0 - 16.0 G/dL AH Workflow SS Lymphocytes (Bld) [#/Vol] 0.6 103/mcL Low 0.9 - 4.3 10^3/mcL AH Workflow SS Lymphocytes/100 WBC (Bld) 8.2 % Low 20.0 - 40.0 % AH Workflow SS MCH (RBC) [Entitic mass] 28.7 pg Normal 27.0 - 33.0 pg AH Workflow SS MCHC 32.3 G/dL Normal 32.0 - 36.0 G/dL AH Workflow SS MCV (RBC) [Entitic vol] 88.8 fL Normal 80.0 - 99.0 fL AH Workflow SS Monocytes (Bld) [#/Vol] 0.6 103/mcL Normal 0.1 - 1.4 10^3/mcL AH Workflow SS Monocytes/100 WBC (Bld) 7.4 % Normal 2.0 - 13.0 % AH Workflow SS Neutrophils (Bld) [#/Vol] 6.2 103/mcL Normal 2.3 - 8.1 10^3/mcL AH Workflow SS Neutrophils/100 WBC (Bld) 80.4 % High 50.0 - 75.0 % AH Workflow SS Platelet mean volume (Bld) [Entitic vol] 8.3 fL Normal 6.6 - 10.5 fL AH Workflow SS Platelets (Bld) [#/Vol] 142 103/mcL Low 150 - 450 10^3/mcL AH Workflow SS Potassium [Moles/Vol] 5.2 mmol/L High 3.5 - 5.0 mEq/L AH ADM SS Protein [Mass/Vol] 5.3 G/dL Low 5.7 - 8.2 G/dL AH ADM SS RBC (Bld) [#/Vol] 4.05 106/mcL Low 4.10 - 5.3 0 10^6/mcL AH Workflow SS Sodium [Moles/Vol] 135 mmol/L Low 136 - 145 mEq/L ADM SS Urea nitrogen [Mass/Vol] 33.0 mg/dL High 8.0 - 22.0 mg/dL AH ADM SS Urea nitrogen/Creatinine [Mass ratio] 7.6 ratio Low 10.0 - 22.0 ratio AH ADM SS WBC (Bld) [#/Vol] 7.7 103/mcL Normal 4.5 - 10.8 10^3/mcL AH Workflow SS CT THORAX W/ CONTRASTon 05- CT THORAX W/ CONTRAST ORIGINAL EXAMINATION: CT OF THE CHEST WITH CONTRAST 09/14/2024 1:30 pm TECHNIQUE: CT of the chest was performed with the administration of intravenous contrast. Multiplanar reformatted images are provided for review. Automated exposure control, iterative reconstruction, and/or weight based adjustment of the mA/kV was utilized to reduce the radiation dose to as low as reasonably achievable. COMPARISON: July 01, 2024 HISTORY: ORDERING SYSTEM PROVIDED HISTORY: Reason for Exam: Cancer follow-up FINDINGS: Recist 1.1: POTENTIAL TARGET TUMOR LESIONS (maximum 5 lesions, maximum 2 per organ, longest dimension in axial plane reported, >10 mm, reproducible lesions): None POTENTIAL TARGET LYMPH NODES (>15 mm short axis, maximum 2): None NONTARGET LESIONS (Definite tumor lesions, lymph nodes 10-14 mm short axis, immeasurable lesions such as lymphangitic involvement, ascites, pleural effusions, etc.): None The study is degraded by streak artifact from arm positioning at the patient's side(s). Moderate degenerative changes are noted in the spine. No other osseous abnormality identified. Scattered tiny subcentimeter pulmonary nodules are noted, not significantly different than on the prior study. No new or enlarging nodule is visible, no consolidation is evident, and there is no significant pleural fluid seen. Previously seen small effusions have resolved. Left lobe thyroid nodule is unchanged. No mediastinal adenopathy is evident. A small amount of pericardial fluid is noted. This is stable. No additional contributory finding seen. IMPRESSION: Resolution of previously seen small pleural effusions. Other findings are stable with no potential new disease seen. Interpreted by: Ema Rocha MD Preliminary Report By: Ema Rocha MD Electronically signed By Ema Rocha MD Dictated Date: 09/17/2024 11:18:06 AM Prelim Date: 09/17/2024 11:21:29 AM Sign Date: 09/17/2024 11:21:29 AM Ordering Provider: ROSEANNE BACA [facility] 36on 09-16-2024 36 Spoke to patient's s on and he stated patient is moving out of state. [facility] 36 Name of Caller: diya Contact Reason for Appointment: Pt's son calling in to cancel her 09/28 appointment. Please advise. Office Name: rheum Medication Refills need, if any: / Medication Name: /\ [facility] CT ABDOMEN/PELVIS W/CONTRAST on 09-16-2024 CT ABDOMEN/PELVIS W/CONTRAST ORIGINAL EXAMINATION: CT OF THE ABDOMEN AND PELVIS WITH CONTRAST09/14/2024 1:30 pm TECHNIQUE: CT of the abdomen and pelvis was performed with the administration of intravenous contrast. Multiplanar reformatted images are provided for review. Automated exposure control, iterative reconstruction, and/or weight based adjustment of the mA/kV was utilized to reduce the radiation dose to as low as reasonably achievable. COMPARISON: CT abdomen pelvis 07/01/2024 HISTORY: ORDERING SYSTEM PROVIDED HISTORY: Reason for Exam: Urothelial cancer follow-up FINDINGS: Recist 1.1: POTENTIAL TARGET TUMOR LESIONS (maximum 5 lesions, maximum 2 per organ, longest dimension in axial plane reported, >10 mm, reproducible lesions): None POTENTIAL TARGET LYMPH NODES (>15 mm short axis, maximum 2): None NONTARGET LESIONS (Definite tumor lesions, lymph nodes 10-14 mm short axis, immeasurable lesions such as lymphangitic involvement, ascites, pleural effusions, etc.): Diffuse circumferential thickening and nodular appearance of the bladder wall. Bones: No acute bony abnormalities. Remote remodeled left lower rib deformities. Degenerative changes of the spine. Grade 1 anterolisthesis at L4-L5. Lower Thorax: CT of the chest from the same day is dictated separately. Solid Organs: The gallbladder, and adrenal glands are unremarkable. Small hypodense lesion in the right hepatic lobe likely represents a cyst/hemangioma. Small calcification in the liver and spleen may represent calcified granulomas. 0.4 cm cystic lesion within the uncinate process of the pancreas. 1.1 cm common bile duct with prominent proximal pancreatic duct measuring up to 0.4 cm, which was likely present on prior imaging as well. Collecting System: The right kidney is surgically absent. No evidence of nodularity or soft tissue within the surgical bed. Multiple cysts in the left kidney measuring up to 3.0 cm. There is moderate left-sided pelvicaliectasis with dilation of the left ureter. No obstructing urolithiasis is identified. Pelvis: Thickened and irregular bladder wall measuring up to 2.9 cm with internal filling defect/soft tissue within the bladder lumen, consistent with history of urothelial cancer. There is surrounding haziness/fat stranding. Soft tissue thickening enhancement of the left distal ureter at the UVJ, concerning for neoplastic involvement. No adnexal masses. Pelvic phleboliths. GI Tract: The stomach is unremarkable. There is a 1.9 cm hypodense lesion within the 3rd portion of the duodenum (4; 47). The colon is unremarkable. The appendix is normal. Vasculature: The vena cava and portal system is normal. Atherosclerotic nonaneurysmal aorta. Lymph Nodes, Mesentery, and Peritoneum: No pathologically enlarged lymph nodes are identified. No free intraperitoneal fluid or gas is identified. Superficial Soft Tissues: Tiny fat containing umbilical hernia. IMPRESSION: Diffuse circumferential nodular thickening of the bladder wall with soft tissue in the bladder lumen, consistent with history of urothelial cancer. This is not significantly changed from prior given differences in imaging technique. Pgcq-wk-iirxvjzs left-sided hydroureteronephrosis, likely related to neoplastic involvement of the distal left ureter at the UVJ. Incidental finding of 1.9 cm hypodense lesion within the 3rd portion of the duodenum is indeterminate. Further evaluation with CT enterography is recommended. I have personally reviewed the images of this examination and agree with the resident's findings and interpretation. Interpreted by: Ema Rocha MD Preliminary Report By: Peterson Abdul Electronically signed By Ema Rocha MD Dictated Date: 09/16/2024 9:31:31 AM Prelim Date: 09/16/2024 1:05:46 PM Sign Date: 09/16/2024 1:05:46 PM Ordering Provider: ROSEANNE Rincon [facility] .Auto Diffon 09-07-2024 Basophil, Absolute 0.0 10 3/mcL Normal 0.0-0.3 [facility] Comment on above: Performed By: #### C BC, GFR, AGA, ANEU, TSH, CMP, LD, ADIFF #### [facility] [address] [place] [address] Basophils/100 WBC (Bld) 0.7 % Normal 0.0-2.5 [facility] Comment on above: Performed By: #### C BC, GFR, AGA, ANEU, TSH, CMP, LD, ADIFF #### [address] [address] Eosinophil, Absolute 0.2 10 3/mcL Normal 0.0-0.7 [facility] Comment on above: Performed By: #### C BC, GFR, AGA, ANEU, TSH, CMP, LD, ADIFF #### [address] [address] Eosinophils/100 WBC (Bld) 4.6 % Normal 0.0-6.0 [facility] Comment on above: Performed By: #### C BC, GFR, AGA, ANEU, TSH, CMP, LD, ADIFF #### [address] [address] Lymphocyte, Absolute 0.8 10 3/mcL Low 0.9-4.3 [facility] Comment on above: Performed By: #### C BC, GFR, AGA, ANEU, TSH, CMP, LD, ADIFF #### [address] [address] Lymphocytes/100 WBC (Bld) 15.3 % Low 20.0-40.0 [facility] Comment on above: Performed By: #### C BC, GFR, AGA, ANEU, TSH, CMP, LD, ADIFF #### [address] [address] Monocyte, Absolute 0.5 10 3/mcL Normal 0.1-1.4 [facility] Comment on above: Performed By: #### C BC, GFR, AGA, ANEU, TSH, CMP, LD, ADIFF #### [address] [address] Monocytes/100 WBC (Bld) 9.6 % Normal 2.0-13.0 [facility] Comment on above: Performed By: #### C BC, GFR, AGA, ANEU, TSH, CMP, LD, ADIFF #### [address] [address] Neutrophils/100 WBC (Bld) 69.8 % Normal 50.0-75.0 [facility] Comment on above: Performed By: #### C BC, GFR, AGA, ANEU, TSH, CMP, LD, ADIFF #### [address] [address] .GFRon 09-07-2024 Estimated Glomerular Filtration Rate 12 ml/min/1.73sqm Normal [facility] Comment on above: Result Comment: Stages of Chronic Kidney Disease (CKD) Stage Description eGFR(ml/min/1.73 sq.m.) CKD 1 Normal kidney function or >=90 normal kindney function with possible kidney damage (ex. Proteinuria) CKD 2 Kidney damage with mild loss 60-89 of kidney function CKD 3a Mild to moderate loss of kidney 45-59 function CKD 3b Moderate to severe loss of 30-44 of kindey function CKD 4 Severe loss of kidney function 15-29 CKD 5 Kidney failure <15 Note: (go live 2024) the eGFR calculation was updated to the 2020 CKD-EPI creatinine equation without a race factor to calculate the eGFR results. Performed By: #### C BC, GFR, AGA, ANEU, TSH, CMP, LD, ADIFF #### [place] [id number] .NEUABSon 09-07-2024 Neutrophil, Absolute 3.5 10 3/mcL Normal 2.3-8.1 [facility] Comment on above: Performed By: #### C BC, GFR, AGA, ANEU, TSH, CMP, LD, ADIFF #### [address] [address] ABO/Rh (Gel)on 09-07-2024 ABO/Rh Interp Positive Invalid Interpretation Code [facility] Comment on above: Performed By: #### C BC, GFR, AGA, ANEU, TSH, CMP, LD, ADIFF #### [address] [address] ABS (Gel)on 09-07-2024 ABSC Interp (Gel) Negative Normal [facility] Comment on above: Performed By: #### C BC, GFR, AGA, ANEU, TSH, CMP, LD, ADIFF #### [place] [id number] CBCon 09-07-2024 Erythrocyte distribution width (RBC) [Ratio] 19.2 % High 11.5-15.5 [facility] Comment on above: Performed By: #### C BC, GFR, AGA, ANEU, TSH, CMP, LD, ADIFF #### [place] [id number] Hematocrit (Bld) [Volume fraction] 23.0 % Low 34.0-46.0 [facility] Comment on above: Performed By: #### C BC, GFR, AGA, ANEU, TSH, CMP, LD, ADIFF #### [address] [address] Hgb 7.6 G/dL Low 12.0-16.0 [facility] Comment on above: Performed By: #### C BC, GFR, AGA, ANEU, TSH, CMP, LD, ADIFF #### [address] [address] MCH (RBC) [Entitic mass] 29.2 pg Normal 27.0-33.0 [facility] Comment on above: Performed By: #### C BC, GFR, AGA, ANEU, TSH, CMP, LD, ADIFF #### [place] [id number] MCHC 33.1 G/dL Normal 32.0-36.0 [facility] Comment on above: Performed By: #### C BC, GFR, AGA, ANEU, TSH, CMP, LD, ADIFF #### [place] [id number] MCV (RBC) [Entitic vol] 88.4 fL Normal 80.0-99.0 [facility] MAIN Comment on above: Performed By: #### C BC, GFR, AGA, ANEU, TSH, CMP, LD, ADIFF #### [place] [id number] Platelet 114 10 3/mcL Low 150-450 [facility] Comment on above: Performed By: #### C BC, GFR, AGA, ANEU, TSH, CMP, LD, ADIFF #### [place] [id number] Platelet mean volume (Bld) [Entitic vol] 8.9 fL Normal 6.6-10.5 [facility] Comment on above: Performed By: #### C BC, GFR, AGA, ANEU, TSH, CMP, LD, ADIFF #### [address] [address] RBC 2.60 10 6/mcL Low 4.10-5.30 [facility] Comment on above: Performed By: #### C BC, GFR, AGA, ANEU, TSH, CMP, LD, ADIFF #### [place] [address] WBC 5.0 10 3/mcL Normal 4.5-10.8 [facility] Comment on above: Performed By: #### C BC, GFR, AGA, ANEU, TSH, CMP, LD, ADIFF #### [place] [address] CMPon 09-07-2024 Albumin Level 2.3 G/dL Low 3.2-4.8 [facility] Comment on above: Performed By: #### C BC, GFR, AGA, ANEU, TSH, CMP, LD, ADIFF #### [place] [address] Albumin/Globulin [Mass ratio] 1.0 {ratio} Normal 0.9-1.6 [facility] Comment on above: Performed By: #### C BC, GFR, AGA, ANEU, TSH, CMP, LD, ADIFF #### [address] [address] ALP [Catalytic activity/Vol] 69 U/L Normal 38-126 [facility] Comment on above: Performed By: #### C BC, GFR, AGA, ANEU, TSH, CMP, LD, ADIFF #### [place] [id number] ALT/SGPT <8 Low 10-49 [facility] Comment on above: Performed By: #### C BC, GFR, AGA, ANEU, TSH, CMP, LD, ADIFF #### [address] [address] AST [Catalytic activity/Vol] 13 U/L Normal 8-34 [facility] Comment on above: Performed By: #### C BC, GFR, AGA, ANEU, TSH, CMP, LD, ADIFF #### [address] [address] Bili Total <0.20 Normal 0.20-1.20 [facility] Comment on above: Result Comment: Use of this assay is not recommended for patients undergoing treatment with eltrombopag due to the potential for falsely elevated results. Performed By: #### C BC, GFR, AGA, ANEU, TSH, CMP, LD, ADIFF #### [place] [id number] BUN/Creatinine Ratio 9.9 ratio Low 10.0-22.0 [facility] Comment on above: Performed By: #### C BC, GFR, AGA, ANEU, TSH, CMP, LD, ADIFF #### [address] [address] Calcium [Mass/Vol] 8.7 mg/dL Normal 8.7-10.4 [facility] Comment on above: Performed By: #### C BC, GFR, AGA, ANEU, TSH, CMP, LD, ADIFF #### [address] [address] Chloride [Moles/Vol] 101 mmol/L Normal 98-110 [facility] Comment on above: Performed By: #### C BC, GFR, AGA, ANEU, TSH, CMP, LD, ADIFF #### [address] [address] CO2 [Moles/Vol] 30 mmol/L Normal 22-32 [facility] Comment on above: Performed By: #### C BC, GFR, AGA, ANEU, TSH, CMP, LD, ADIFF #### [address] [address] Creatinine [Mass/Vol] 3.65 mg/dL High 0.50-1.20 [facility] Comment on above: Result Comment: Test ing performed on Bapul analyzer using enzymatic creatinine methodology. Performed By: #### C BC, GFR, AGA, ANEU, TSH, CMP, LD, ADIFF #### [address] [address] Electrolyte Balance 5.0 mEq/L Normal 4.0-15.0 [facility] Comment on above: Performed By: #### C BC, GFR, AGA, ANEU, TSH, CMP, LD, ADIFF #### [address] [address] Globulin 2.4 G/dL Low 2.5-4.2 [facility] Comment on above: Performed By: #### C BC, GFR, AGA, ANEU, TSH, CMP, LD, ADIFF #### [address] [address] Glucose [Mass/Vol] 112 mg/dL Normal 82-115 [facility] Comment on above: Performed By: #### C BC, GFR, AGA, ANEU, TSH, CMP, LD, ADIFF #### [address] [address] Potassium [Moles/Vol] 4.7 mmol/L Normal 3.5-5.0 [facility] Comment on above: Performed By: #### C BC, GFR, AGA, ANEU, TSH, CMP, LD, ADIFF #### [address] [address] Sodium [Moles/Vol] 136 mmol/L Normal 136-145 [facility] Comment on above: Performed By: #### C BC, GFR, AGA, ANEU, TSH, CMP, LD, ADIFF #### [address] [address] Total Protein 4.7 G/dL Low 5.7-8.2 [facility] Comment on above: Performed By: #### C BC, GFR, AGA, ANEU, TSH, CMP, LD, ADIFF #### [address] [address] Urea nitrogen [Mass/Vol] 36.0 mg/dL High 8.0-22.0 [facility] Comment on above: Performed By: #### C BC, GFR, AGA, ANEU, TSH, CMP, LD, ADIFF #### [address] [address] CORTon 05-13-2025 Cortisol Level 12.5 mcg/dL Normal [facility] Comment on above: Result Comment: Aga isol AM Reference Range 6.5-26.0 mcg/dL Cortisol PM Reference Range 3.5-15.0 mcg/dL Performed By: #### C BC, GFR, AGA, ANEU, TSH, CMP, LD, ADIFF #### [facility] [address] [place] [address] LABORATORYOrdered By: Gavi Olivas on 09-07-2024 RBC Product Ready RBC Ready for Pickup (09/07/24 11:10 AM) Normal AH BB Manual SS ABO and Rh group Nom (Bld) Blood group O Rh(D) positive Invalid Interpretation Code AH BB Auto SS Blood group antibody screen Ql Negative ABSC (09/07/24 10:43 AM) Normal AH BB Auto SS LABORATORYOrdered By: SYSTEM SYSTEM on 09-07-2024 Albumin BCP dye [Mass/Vol] 2.3 G/dL Low 3.2 - 4.8 G/dL AH ADM SS Albumin/Globulin [Mass ratio] 1.0 {ratio} Normal 0.9 - 1.6 ratio AH ADM SS ALP [Catalytic activity/Vol] 69 U/L Normal 38 - 126 U/L AH ADM SS ALT No additional P-5'-P [Catalytic activity/Vol] U/L 1 Low 10 - 49 U/L AH ADM SS AST [Catalytic activity/Vol] 13 U/L Normal 8 - 34 U/L AH ADM SS Basophils (Bld) [#/Vol] 0.0 103/mcL Normal 0.0 - 0.3 10^3/mcL AH Workflow SS Basophils/100 WBC (Bld) 0.7 % Normal 0.0 - 2.5 % AH Workflow SS Bilirubin [Mass/Vol] mg/dL Normal 0.20 - 1.20 mg/dL AH ADM SS Comment on above: Interpretive Data: U se of this assay is not recommended for patients undergoing treatment with eltrombopag due to the potential for falsely elevated results. Calcium [Mass/Vol] 8.7 mg/dL Normal 8.7 - 10. 4 mg/dL AH ADM SS Chloride [Moles/Vol] 101 mmol/L Normal 98 - 11 0 mEq/L AH ADM SS CO2 [Moles/Vol] 30 mmol/L Normal 22 - 32 mEq/L AH ADM SS Cortisol [Mass/Vol] 12.5 ug/dL Invalid Interpretation Code ADM SS Comment on above: Interpretive Data: C ortisol AM Reference Range 6.5-26.0 mcg/dL Cortisol PM Reference Range 3.5-15.0 mcg/dL Creatinine [Mass/Vol] 3.65 mg/dL High 0.50 - 1.20 mg/dL ADM SS Comment on above: Interpretive Data: T esting performed on Bapul analyzer using enzymatic creatinine methodology. Electrolyte Balance 5.0 mEq/L Normal 4.0 - 15 .0 mEq/L ADM SS Eosinophils (Bld) [#/Vol] 0.2 103/mcL Normal 0.0 - 0.7 10^3/mcL Workflow SS Eosinophils/100 WBC (Bld) 4.6 % Normal 0.0 - 6.0 % Workflow SS Erythrocyte distribution width (RBC) [Ratio] 19.2 % High 11.5 - 15.5 % Workflow SS Estimated Glomerular Filtration Rate 12 ml/min/1.73sqm Invalid Interpretation Code ADM SS Comment on above: Interpretive Data: Stages of Chronic Kidney Disease (CKD) Stage Description eGFR(ml/min/1.73 sq.m.) CKD 1 Normal kidney function or >=90 normal kindney function with possible kidney damage (ex. Proteinuria) CKD 2 Kidney damage with mild loss 60-89 of kidney function CKD 3a Mild to moderate loss of kidney 45-59 function CKD 3b Moderate to severe loss of 30-44 of kindey function CKD 4 Severe loss of kidney function 15-29 CKD 5 Kidney failure <15 Note: (go live 2024) the eGFR calculation was updated to the 2020 CKD-EPI creatinine equation without a race factor to calculate the eGFR results. Globulin 2.4 G/dL Low 2.5 - 4.2 G/dL ADM SS Glucose [Mass/Vol] 112 mg/dL Normal 82 - 115 mg/dL ADM SS Hematocrit (Bld) [Volume fraction] 23.0 % Low 34.0 - 46.0 % Workflow SS Hemoglobin (Bld) [Mass/Vol] 7.6 G/dL Low 12.0 - 16.0 G/dL Workflow SS LDH Lactate to pyruvate reaction [Catalytic activity/Vol] 181 1 Normal 120 - 246 U/L ADM SS Lymphocytes (Bld) [#/Vol] 0.8 103/mcL Low 0.9 - 4.3 10^3/mcL AH Workflow SS Lymphocytes/100 WBC (Bld) 15.3 % Low 20.0 - 40.0 % AH Workflow SS MCH (RBC) [Entitic mass] 29.2 pg Normal 27.0 - 33.0 pg AH Workflow SS MCHC 33.1 G/dL Normal 32.0 - 36.0 G/dL AH Workflow SS MCV (RBC) [Entitic vol] 88.4 fL Normal 80.0 - 99.0 fL AH Workflow SS Monocytes (Bld) [#/Vol] 0.5 103/mcL Normal 0.1 - 1.4 10^3/mcL AH Workflow SS Monocytes/100 WBC (Bld) 9.6 % Normal 2.0 - 13.0 % AH Workflow SS Neutrophils (Bld) [#/Vol] 3.5 103/mcL Normal 2.3 - 8.1 10^3/mcL AH Workflow SS Neutrophils/100 WBC (Bld) 69.8 % Normal 50.0 - 75.0 % AH Workflow SS Platelet mean volume (Bld) [Entitic vol] 8.9 fL Normal 6.6 - 10.5 fL AH Workflow SS Platelets (Bld) [#/Vol] 114 103/mcL Low 150 - 450 10^3/mcL AH Workflow SS Potassium [Moles/Vol] 4.7 mmol/L Normal 3.5 - 5.0 mEq/L ADM SS Protein [Mass/Vol] 4.7 G/dL Low 5.7 - 8.2 G/dL AH ADM SS RBC (Bld) [#/Vol] 2.60 106/mcL Low 4.10 - 5.3 0 10^6/mcL AH Workflow SS Sodium [Moles/Vol] 136 mmol/L Normal 136 - 145 mEq/L ADM SS TSH Qn 4.054 mIU/mL Normal 0.550 - 4.780 mIU/mL AH ADM SS Urea nitrogen [Mass/Vol] 36.0 mg/dL High 8.0 - 22.0 mg/dL AH ADM SS Urea nitrogen/Creatinine [Mass ratio] 9.9 ratio Low 10.0 - 22.0 ratio AH ADM SS WBC (Bld) [#/Vol] 5.0 103/mcL Normal 4.5 - 10.8 10^3/mcL AH Workflow SS LDHon 09-07-2024 LDH 181 U/L Normal 120-246 [facility] Comment on above: Performed By: #### C BC, GFR, AGA, ANEU, TSH, CMP, LD, ADIFF #### [facility] [address] [place] [id number] RBC (Product)on 09-07-2024 RBC Product Ready RBC Ready for Pickup Normal [facility] Comment on above: Performed By: #### C BC, GFR, AGA, ANEU, TSH, CMP, LD, ADIFF #### [facility] [address] [place] [address] TSHon 09-07-2024 TSH 4.054 mIU/mL Normal 0.550-4.780 [facility] Comment on above: Performed By: #### C BC, GFR, AGA, ANEU, TSH, CMP, LD, ADIFF #### [place] [id number] [place] [address] Absolute lymphocyte countOrd ered By: Fabian Lawson on 08-20-2024 Lymphocytes Auto (Unsp spec) [#/Vol] 0.99 10*3/uL 0.83-4.51 [facility] Absolute neutrophil countOrd ered By: Fabian Lawson on 08-20-2024 Neutrophils (Bld) [#/Vol] 2.8 10*3/uL 2.0-7.7 [facility] Absolute neutrophil count 2.8 X10^3/uL 2.0-7.7 [facility] Automated lymphocyte count a s percentage of total leukocytesOrdered By: Fabian Lawson on 08-20-2024 Lymphocytes/100 WBC Auto (Unsp spec) 22.3 % 19-41 [facility] BUNon 08-20-2024 Urea nitrogen [Mass/Vol] 53 mg/dL High - [facility] Comment on above: Performed By: #### L 3890.6102, L501.1000, L501.5600, L100.0100 ####[facility] [address] [place], [address] Urea nitrogen [Mass/Vol] 11 mg/dL Normal 08-14 [facility] Comment on above: Performed By: #### L 501.1000 ####[facility] [address] [place], [address] Basophil percentageOrdered B y: Fabian Lawson on 08-20-2024 Basophils/100 WBC (Bld) 0.5 % 0-[address] [facility] Basophil percentage 0.5 % 0-1 [facility] CBC W/Diff, Automatedon 07-28 Absolute Lymph 0.99 X10 3/uL Normal 0.83-4.51 [facility] Comment on above: Performed By: #### L 3890.6102, L501.1000, L501.5600, L100.0100 ####[facility] [address] [place], [address] Absolute Neut 2.8 X10 3/uL Normal 2.0-7.7 [facility] Comment on above: Performed By: #### L 3890.6102, L501.1000, L501.5600, L100.0100 ####[facility] [address] [place], [address] Basophils/100 WBC (Bld) 0.5 % Normal 0-[address] [facility] Comment on above: Performed By: #### L 3890.6102, L501.1000, L501.5600, L100.0100 ####[facility] [address] [place], [address] Eosinophils/100 WBC (Bld) 4.5 % Normal 0-5 [facility] Comment on above: Performed By: #### L 3890.6102, L501.1000, L501.5600, L100.0100 ####[facility] [address] [place], [address] Erythrocyte distribution width (RBC) [Ratio] 17.4 % High 11.6-14.6 [facility] Comment on above: Performed By: #### L 3890.6102, L501.1000, L501.5600, L100.0100 ####[facility] [address] [place], [address] Hematocrit (Bld) [Volume fraction] 28.8 % Low 37-47 [facility] Comment on above: Performed By: #### L 3890.6102, L501.1000, L501.5600, L100.0100 ####[facility] [address] [place], [address] Hemoglobin (Bld) [Mass/Vol] 9.0 g/dL Low 12.0-15.0 [facility] Comment on above: Performed By: #### L 3890.6102, L501.1000, L501.5600, L100.0100 ####[facility] [address] [place], [address] IG% 1.800 High 0.0-0.9 [facility] Comment on above: Result Comment: IG% - Immature Granulocytes (promyelocytes, myelocytes andmetamyelocytes) > 1% indicates that a LEFT SHIFT is Present. Performed By: #### L 3890.6102, L501.1000, L501.5600, L100.0100 ####[facility] [address] [place], [address] Lymphocytes/100 WBC (Bld) 22.3 % Normal 19-41 [facility] Comment on above: Performed By: #### L 3890.6102, L501.1000, L501.5600, L100.0100 ####[facility] [address] [place], [address] MCH (RBC) [Entitic mass] 28.9 pg Normal 27.0-32.0 [facility] Comment on above: Performed By: #### L 3890.6102, L501.1000, L501.5600, L100.0100 ####[facility] [address] [place], [address] MCHC (RBC) [Mass/Vol] 31.3 g/dL Low 32-36 [facility] Comment on above: Performed By: #### L 3890.6102, L501.1000, L501.5600, L100.0100 ####[facility] [address] [place], [address] MCV (RBC) [Entitic vol] 92.6 fL Normal 81-99 [facility] Comment on above: Performed By: #### L 3890.6102, L501.1000, L501.5600, L100.0100 ####[facility] [address] [place], [address] Monocytes/100 WBC (Bld) 9.0 % Normal 0-10 [facility] Comment on above: Performed By: #### L 3890.6102, L501.1000, L501.5600, L100.0100 ####[facility] [address] [place], [address] Neutrophils/100 WBC (Bld) 61.9 % Normal 47-70 [facility] Comment on above: Performed By: #### L 3890.6102, L501.1000, L501.5600, L100.0100 ####[facility] [address] [place], [address] Nucleated RBC (Bld) [#/Vol] 0 10*3/uL Normal 0-5 [facility] Comment on above: Performed By: #### L 3890.6102, L501.1000, L501.5600, L100.0100 ####[facility] [address] [place], [address] Platelet mean volume (Bld) [Entitic vol] 11.6 fL Normal 6.2-12.0 [facility] Comment on above: Performed By: #### L 3890.6102, L501.1000, L501.5600, L100.0100 ####[facility] [address] [place], [address] Platelets (Bld) [#/Vol] 136 10*3/uL Low 150-450 [facility] Comment on above: Performed By: #### L 3890.6102, L501.1000, L501.5600, L100.0100 ####[facility] [address] [place], [address] RBC (Bld) [#/Vol] 3.11 10*6/uL Low 4.2-5.4 [facility] Comment on above: Performed By: #### L 3890.6102, L501.1000, L501.5600, L100.0100 ####[facility] [address] [place], [address] RDW SD 59.7 fl High 35.1-43.9 [facility] Comment on above: Performed By: #### L 3890.6102, L501.1000, L501.5600, L100.0100 ####[facility] [address] [place], [address] WBC (Bld) [#/Vol] 4.4 10*3/uL Normal 4.4-11.0 [facility] Comment on above: Performed By: #### L 3890.6102, L501.1000, L501.5600, L100.0100 ####[facility] [address] [place], [address] Eosinophil percentageOrdered By: Fabian Lawson on 08-20-2024 Eosinophils/100 WBC (Bld) 4.5 % 0-5 [facility] Eosinophil percentage 4.5 % 0-5 [facility] Erythrocyte distribution wid th (RBC) [Ratio]Ordered By: Fabian Lawson on 08-20-2024 Erythrocyte distribution width ratio 17.4 % High 11.6-14.6 [facility] Erythrocyte distribution width standard deviation 59.7 fl High 35.1-43.9 [facility] Erythrocyte distribution wid th ratioOrdered By: Fabian Lawson on 08-20-2024 Erythrocyte distribution width (RBC) [Ratio] 17.4 % High 11.6-14.6 [facility] Erythrocyte distribution wid th standard deviationOrdered By: [facility] Bryson on 08-20-2024 Erythrocyte distribution width (RBC) [Ratio] 59.7 fl High 35.1-43.9 [facility] HBV surface Ag Ql (S)Ordered By: [facility] Lawson on 08-20-2024 Non-Reactive Nonreactive [facility] Hematocrit Auto (Bld) [Volum e fraction]Ordered By: [facility] Bryson on 08-20-2024 Hematocrit (Bld) [Volume fraction] 28.8 % Low 37-47 [facility] Automated blood hematocrit (percentage) 28.8 % Low 37-47 [facility] Hemoglobin measurementOrdere d By: Fabian Lawson on 08-20-2024 Hemoglobin (Bld) [Mass/Vol] 9.0 g/dL Low 12.0-15.0 [facility] Hemoglobin measurement 9.0 g/dL Low 12.0-15.0 [facility] Immature granulocytes/100 WB C Auto (Bld)Ordered By: Fabian Lawson on 08-20-2024 Immature granulocytes/100 WBC (Bld) 1.800 % High 0.0-0.9 [facility] Comment on above: IG% - Immature Granu locytes (promyelocytes, myelocytes and metamyelocytes) > 1% indicates that a LEFT SHIFT is Present. Automated immature granulocyte percentage 1.800 % High 0.0-0.9 [facility] L3890.6102on 08-20-2024 HEP B Surf Ag Non-Reactive Normal Nonreactive [facility] Comment on above: Result Comment: Reac tive: Presumptive evidence of HBV. Repeatedly reactivesamples must be confirmed using a neutralization test([employer] HBsAg Confirmatory Test)Non-Reactive: HBsAg not detected; does not exclude thepossibility of exposure to HBV Performed By: #### L 3890.6102, L501.1000, L501.5600, L100.0100 ####[facility] [id number] [place], [address] Laboratory - Microbiology an d Antimicrobial susceptibilityOrdered By: Fabian Lawson on 08-20-2024 HBV surface Ag Ql (S) Non-Reactive Nonreactive [facility] Comment on above: Reactive: Presumptiv e evidence of HBV. Repeatedly reactive samples must be confirmed using a neutralization test ([employer] HBsAg Confirmatory Test)Non-Reactive: HBsAg not detected; does not exclude the possibility of exposure to HBV Lymphocytes Auto (Unsp spec) [#/Vol]Ordered By: Fabian Lawson on 08-20-2024 Absolute lymphocyte count 0.99 X10^3/uL 0.83-4.51 [facility] Lymphocytes/100 WBC Auto (Un sp spec)Ordered By: Fabian Lawson on 08-20-2024 Automated lymphocyte count as percentage of total leukocytes 22.3 % 19-41 [facility] MCV (RBC) [Entitic vol]Order ed By: Fabian Laswon on 08-20-2024 MCV (mean corpuscular volume) determination 92.6 fL 81-99 [facility] MCV (mean corpuscular volume ) determinationOrdered By: Fabian Lawson on 08-20-2024 MCV (RBC) [Entitic vol] 92.6 fL 81-99 [facility] Mean corpuscular hemoglobin (MCH) determinationOrdered By: Fabian Lawson on 08-20-2024 MCH (RBC) [Entitic mass] 28.9 pg 27.0-32.0 [facility] Mean corpuscular hemoglobin (MCH) determination 28.9 pg 27.0-32.0 [facility] Mean corpuscular hemoglobin concentration (MCHC) determinationOrdered By: Fabian Lawson on 08-20-2024 MCHC (RBC) [Mass/Vol] 31.3 g/dL Low 32-36 [facility] Mean corpuscular hemoglobin concentration (MCHC) determination 31.3 g/dL Low 32-36 [facility] Mean platelet volume determi nationOrdered By: Fabian Lawson on 08-20-2024 Platelet mean volume (Bld) [Entitic vol] 11.6 fL 6.2-12.0 [facility] Mean platelet volume determination 11.6 fl 6.2-12.0 [facility] Monocyte percentageOrdered B y: Fabian Lawson on 08-20-2024 Monocytes/100 WBC (Bld) 9.0 % 0-[address] [facility] Monocyte percentage 9.0 % 0-10 [facility] Neutrophil percentageOrdered By: Fabian Lawson on 08-20-2024 Neutrophils/100 WBC (Bld) 61.9 % 47-70 [facility] Neutrophil percentage 61.9 % 47-70 [facility] Nucleated red blood cell per centageOrdered By: Fabian Lawson on 08-20-2024 Nucleated RBC/100 WBC (Bld) [Ratio] 0 % 0-5 [facility] Nucleated red blood cell percentage 0 % 0-5 [facility] Platelet countOrdered By: Richard Lawson on 08-20-2024 Platelets (Bld) [#/Vol] 136 10*3/uL Low 150-450 [facility] Platelet count 136 K/mm3 Low 150-450 [facility] Potassiumon 08-20-2024 Potassium [Moles/Vol] 5.9 mmol/L High 3.3-5.1 [facility] Comment on above: Performed By: #### L 3890.6102, L501.1000, L501.5600, L100.0100 ####[facility] [id number] [place], [address] Potassium (Unsp spec) [Mass/ Vol]Ordered By: Fabian Lawson on 08-20-2024 Potassium measurement (mass/volume) 5.9 mmol/L High 3.3-5.1 [facility] Potassium measurement (mass/ volume)Ordered By: Fabian Lawson on 08-20-2024 Potassium (Unsp spec) [Mass/Vol] 5.9 mmol/L High 3.3-5.1 [facility] RBC Auto (Bld) [#/Vol]Ordere d By: Fabian Lawson on 08-20-2024 RBC (Bld) [#/Vol] 3.11 10*6/uL Low 4.2-5.4 [facility] Automated blood erythrocyte count 3.11 M/mm3 Low 4.2-5.4 [facility] Serum or plasma urea nitroge n measurement (mass/volume)Ordered By: Fabian Lawson on 08-20-2024 Urea nitrogen [Mass/Vol] 11 mg/dL 08-14 [facility] Urea nitrogen [Mass/Vol]Orde red By: Fabian Lawson on 08-20-2024 Serum or plasma urea nitrogen measurement (mass/volume) 11 mg/dL 08-14 [facility] White blood cell (WBC) count Ordered By: Fabian Lawson on 08-20-2024 WBC (Bld) [#/Vol] 4.4 10*3/uL 4.4-11.0 [facility] White blood cell (WBC) count 4.4 K/mm3 4.4-11.0 [facility] .Auto Diffon 08-17-2024 Basophil, Absolute 0.0 10 3/mcL Normal 0.0-0.3 [facility] Comment on above: Performed By: #### C BC, GFR, AGA, ANEU, TSH, CMP, LD, ADIFF #### [address] [address] Basophils/100 WBC (Bld) 0.7 % Normal 0.0-2.5 [facility] Comment on above: Performed By: #### C BC, GFR, AGA, ANEU, TSH, CMP, LD, ADIFF #### [address] [address] Eosinophil, Absolute 0.2 10 3/mcL Normal 0.0-0.7 [facility] Comment on above: Performed By: #### C BC, GFR, AGA, ANEU, TSH, CMP, LD, ADIFF #### [address] [address] Eosinophils/100 WBC (Bld) 4.0 % Normal 0.0-6.0 [facility] Comment on above: Performed By: #### C BC, GFR, AGA, ANEU, TSH, CMP, LD, ADIFF #### [address] [address] Lymphocyte, Absolute 0.8 10 3/mcL Low 0.9-4.3 [facility] Comment on above: Performed By: #### C BC, GFR, AGA, ANEU, TSH, CMP, LD, ADIFF #### [place] [id number] [place] [address] Lymphocytes/100 WBC (Bld) 16.9 % Low 20.0-40.0 [facility] Comment on above: Performed By: #### C BC, GFR, AGA, ANEU, TSH, CMP, LD, ADIFF #### [address] [address] Monocyte, Absolute 0.4 10 3/mcL Normal 0.1-1.4 [facility] Comment on above: Performed By: #### C BC, GFR, AGA, ANEU, TSH, CMP, LD, ADIFF #### [address] [address] Monocytes/100 WBC (Bld) 8.6 % Normal 2.0-13.0 [facility] Comment on above: Performed By: #### C BC, GFR, AGA, ANEU, TSH, CMP, LD, ADIFF #### [address] [address] Neutrophils/100 WBC (Bld) 69.8 % Normal 50.0-75.0 [facility] Comment on above: Performed By: #### C BC, GFR, AGA, ANEU, TSH, CMP, LD, ADIFF #### [address] [address] .GFRon 08-17-2024 Estimated Glomerular Filtration Rate 11 ml/min/1.73sqm Normal [facility] Comment on above: Result Comment: Stages of Chronic Kidney Disease (CKD) Stage Description eGFR(ml/min/1.73 sq.m.) CKD 1 Normal kidney function or >=90 normal kindney function with possible kidney damage (ex. Proteinuria) CKD 2 Kidney damage with mild loss 60-89 of kidney function CKD 3a Mild to moderate loss of kidney 45-59 function CKD 3b Moderate to severe loss of 30-44 of kindey function CKD 4 Severe loss of kidney function 15-29 CKD 5 Kidney failure <15 Note: (go live 2024) the eGFR calculation was updated to the 2020 CKD-EPI creatinine equation without a race factor to calculate the eGFR results. Performed By: #### C BC, GFR, AGA, ANEU, TSH, CMP, LD, ADIFF #### [place] [id number] .NEUABSon 08-17-2024 Neutrophil, Absolute 3.1 10 3/mcL Normal 2.3-8.1 [facility] Comment on above: Performed By: #### C BC, GFR, AGA, ANEU, TSH, CMP, LD, ADIFF #### [place] [address] ABO/Rh (Gel)on 08-17-2024 ABO/Rh Interp Positive Invalid Interpretation Code [facility] Comment on above: Performed By: #### C BC, GFR, AGA, ANEU, TSH, CMP, LD, ADIFF #### [place] [id number] ABS (Gel)on 08-17-2024 ABSC Interp (Gel) Negative Normal [facility] Comment on above: Performed By: #### C BC, GFR, AGA, ANEU, TSH, CMP, LD, ADIFF #### [place] [id number] CBCon 08-17-2024 Erythrocyte distribution width (RBC) [Ratio] 19.6 % High 11.5-15.5 [facility] Comment on above: Performed By: #### C BC, GFR, AGA, ANEU, TSH, CMP, LD, ADIFF #### [place] [address] Hematocrit (Bld) [Volume fraction] 25.8 % Low 34.0-46.0 [facility] Comment on above: Performed By: #### C BC, GFR, AGA, ANEU, TSH, CMP, LD, ADIFF #### [place] [id number] Hgb 8.5 G/dL Low 12.0-16.0 [facility] Comment on above: Performed By: #### C BC, GFR, AGA, ANEU, TSH, CMP, LD, ADIFF #### [place] [address] MCH (RBC) [Entitic mass] 29.6 pg Normal 27.0-33.0 [facility] Comment on above: Performed By: #### C BC, GFR, AGA, ANEU, TSH, CMP, LD, ADIFF #### [place] [address] MCHC 33.0 G/dL Normal 32.0-36.0 [facility] Comment on above: Performed By: #### C BC, GFR, AGA, ANEU, TSH, CMP, LD, ADIFF #### [place] [address] MCV (RBC) [Entitic vol] 89.7 fL Normal 80.0-99.0 [facility] Comment on above: Performed By: #### C BC, GFR, AGA, ANEU, TSH, CMP, LD, ADIFF #### [place] [address] Platelet 138 10 3/mcL Low 150-450 [facility] Comment on above: Performed By: #### C BC, GFR, AGA, ANEU, TSH, CMP, LD, ADIFF #### [place] [address] Platelet mean volume (Bld) [Entitic vol] 8.2 fL Normal 6.6-10.5 [facility] Comment on above: Performed By: #### C BC, GFR, AGA, ANEU, TSH, CMP, LD, ADIFF #### [place] [address] RBC 2.88 10 6/mcL Low 4.10-5.30 [facility] Comment on above: Performed By: #### C BC, GFR, AGA, ANEU, TSH, CMP, LD, ADIFF #### [place] [address] WBC 4.5 10 3/mcL Normal 4.5-10.8 [facility] Comment on above: Performed By: #### C BC, GFR, AGA, ANEU, TSH, CMP, LD, ADIFF #### [address] [address] CMPon 08-17-2024 Albumin Level 2.5 G/dL Low 3.2-4.8 [facility] Comment on above: Performed By: #### C BC, GFR, AGA, ANEU, TSH, CMP, LD, ADIFF #### [place] [address] Albumin/Globulin [Mass ratio] 0.9 {ratio} Normal 0.9-1.6 [facility] Comment on above: Performed By: #### C BC, GFR, AGA, ANEU, TSH, CMP, LD, ADIFF #### [place] [address] ALP [Catalytic activity/Vol] 90 U/L Normal 38-126 [facility] Comment on above: Performed By: #### C BC, GFR, AGA, ANEU, TSH, CMP, LD, ADIFF #### [place] [address] ALT/SGPT <7 Low 10-49 [facility] Comment on above: Performed By: #### C BC, GFR, AGA, ANEU, TSH, CMP, LD, ADIFF #### [place] [address] AST [Catalytic activity/Vol] 16 U/L Normal 8-34 [facility] Comment on above: Performed By: #### C BC, GFR, AGA, ANEU, TSH, CMP, LD, ADIFF #### [place] [address] Bili Total <0.20 Normal 0.20-1.20 [facility] Comment on above: Result Comment: Use of this assay is not recommended for patients undergoing treatment with eltrombopag due to the potential for falsely elevated results. Performed By: #### C BC, GFR, AGA, ANEU, TSH, CMP, LD, ADIFF #### [place] [address] BUN/Creatinine Ratio 7.3 ratio Low 10.0-22.0 [facility] Comment on above: Performed By: #### C BC, GFR, AGA, ANEU, TSH, CMP, LD, ADIFF #### [address] [address] Calcium [Mass/Vol] 9.5 mg/dL Normal 8.7-10.4 [facility] Comment on above: Performed By: #### C BC, GFR, AGA, ANEU, TSH, CMP, LD, ADIFF #### [address] [address] Chloride [Moles/Vol] 103 mmol/L Normal 98-110 [facility] Comment on above: Performed By: #### C BC, GFR, AGA, ANEU, TSH, CMP, LD, ADIFF #### [place] [id number] CO2 [Moles/Vol] 30 mmol/L Normal 22-32 [facility] Comment on above: Performed By: #### C BC, GFR, AGA, ANEU, TSH, CMP, LD, ADIFF #### [place] [id number] Creatinine [Mass/Vol] 3.95 mg/dL High 0.50-1.20 [facility] Comment on above: Result Comment: Test ing performed on Bapul analyzer using enzymatic creatinine methodology. Performed By: #### C BC, GFR, AGA, ANEU, TSH, CMP, LD, ADIFF #### [place] [id number] Electrolyte Balance 6.0 mEq/L Normal 4.0-15.0 [facility] Comment on above: Performed By: #### C BC, GFR, AGA, ANEU, TSH, CMP, LD, ADIFF #### [place] [id number] Globulin 2.8 G/dL Normal 1.5-3.8 [facility] Comment on above: Performed By: #### C BC, GFR, AGA, ANEU, TSH, CMP, LD, ADIFF #### [place] [id number] Glucose [Mass/Vol] 147 mg/dL High 82-115 [facility] Comment on above: Performed By: #### C BC, GFR, AGA, ANEU, TSH, CMP, LD, ADIFF #### [address] [address] Potassium [Moles/Vol] 5.8 mmol/L High 3.5-5.0 [facility] Comment on above: Performed By: #### C BC, GFR, AGA, ANEU, TSH, CMP, LD, ADIFF #### [address] [address] Sodium [Moles/Vol] 139 mmol/L Normal 136-145 [facility] Comment on above: Performed By: #### C BC, GFR, AGA, ANEU, TSH, CMP, LD, ADIFF #### [place] [id number] Total Protein 5.3 G/dL Low 5.7-8.2 [facility] Comment on above: Performed By: #### C BC, GFR, AGA, ANEU, TSH, CMP, LD, ADIFF #### [place] [id number] Urea nitrogen [Mass/Vol] 29.0 mg/dL High 8.0-22.0 [facility] Comment on above: Performed By: #### C BC, GFR, AGA, ANEU, TSH, CMP, LD, ADIFF #### [place] [id number] CORTon 08-17-2024 Cortisol Level 17.2 mcg/dL Normal [facility] Comment on above: Result Comment: Aga isol AM Reference Range 6.5-26.0 mcg/dL Cortisol PM Reference Range 3.5-15.0 mcg/dL Performed By: #### C BC, GFR, AGA, ANEU, TSH, CMP, LD, ADIFF #### [place] [address] LABORATORYOrdered By: Elaine Bennett on 08-17-2024 ABO and Rh group Nom (Bld) Blood group O Rh(D) positive Invalid Interpretation Code AH BB Auto SS Blood group antibody screen Ql Negative ABSC (08/17/24 11:14 AM) Normal AH BB Auto SS RBC Product Ready RBC Ready for Pickup (08/17/24 10:25 AM) Normal AH BB Manual SS LABORATORYOrdered By: SYSTEM SYSTEM on 08-17-2024 Albumin BCP dye [Mass/Vol] 2.5 G/dL Low 3.2 - 4.8 G/dL ADM SS Albumin/Globulin [Mass ratio] 0.9 {ratio} Normal 0.9 - 1.6 ratio ADM SS ALP [Catalytic activity/Vol] 90 U/L Normal 38 - 126 U/L ADM SS ALT No additional P-5'-P [Catalytic activity/Vol] U/L 1 Low 10 - 49 U/L ADM SS AST [Catalytic activity/Vol] 16 U/L Normal 8 - 34 U/L ADM SS Basophils (Bld) [#/Vol] 0.0 103/mcL Normal 0.0 - 0.3 10^3/mcL Workflow SS Basophils/100 WBC (Bld) 0.7 % Normal 0.0 - 2.5 % Workflow SS Bilirubin [Mass/Vol] mg/dL Normal 0.20 - 1.20 mg/dL ADM SS Comment on above: Interpretive Data: U se of this assay is not recommended for patients undergoing treatment with eltrombopag due to the potential for falsely elevated results. Calcium [Mass/Vol] 9.5 mg/dL Normal 8.7 - 10. 4 mg/dL ADM SS Chloride [Moles/Vol] 103 mmol/L Normal 98 - 11 0 mEq/L ADM SS CO2 [Moles/Vol] 30 mmol/L Normal 22 - 32 mEq/L ADM SS Cortisol [Mass/Vol] 17.2 ug/dL Invalid Interpretation Code ADM SS Comment on above: Interpretive Data: C ortisol AM Reference Range 6.5-26.0 mcg/dL Cortisol PM Reference Range 3.5-15.0 mcg/dL Creatinine [Mass/Vol] 3.95 mg/dL High 0.50 - 1.20 mg/dL ADM SS Comment on above: Interpretive Data: T esting performed on Bapul analyzer using enzymatic creatinine methodology. Electrolyte Balance 6.0 mEq/L Normal 4.0 - 15 .0 mEq/L ADM SS Eosinophils (Bld) [#/Vol] 0.2 103/mcL Normal 0.0 - 0.7 10^3/mcL Workflow SS Eosinophils/100 WBC (Bld) 4.0 % Normal 0.0 - 6.0 % Workflow SS Erythrocyte distribution width (RBC) [Ratio] 19.6 % High 11.5 - 15.5 % Workflow SS Estimated Glomerular Filtration Rate 11 ml/min/1.73sqm Invalid Interpretation Code [facility] SS Comment on above: Interpretive Data: Stages of Chronic Kidney Disease (CKD) Stage Description eGFR(ml/min/1.73 sq.m.) CKD 1 Normal kidney function or >=90 normal kindney function with possible kidney damage (ex. Proteinuria) CKD 2 Kidney damage with mild loss 60-89 of kidney function CKD 3a Mild to moderate loss of kidney 45-59 function CKD 3b Moderate to severe loss of 30-44 of kindey function CKD 4 Severe loss of kidney function 15-29 CKD 5 Kidney failure <15 Note: (go live 2024) the eGFR calculation was updated to the 2020 CKD-EPI creatinine equation without a race factor to calculate the eGFR results. Globulin 2.8 G/dL Normal 1.5 - 3.8 G/dL [facility] SS Glucose [Mass/Vol] 147 mg/dL High 82 - 115 mg/dL [facility] SS Hematocrit (Bld) [Volume fraction] 25.8 % Low 34.0 - 46.0 % Workflow SS Hemoglobin (Bld) [Mass/Vol] 8.5 G/dL Low 12.0 - 16.0 G/dL [facility] SS LDH Lactate to pyruvate reaction [Catalytic activity/Vol] 168 1 Normal 120 - 246 U/L [facility] SS Lymphocytes (Bld) [#/Vol] 0.8 103/mcL Low 0.9 - 4.3 10^3/mcL Workflow SS Lymphocytes/100 WBC (Bld) 16.9 % Low 20.0 - 40.0 % [facility] SS MCH (RBC) [Entitic mass] 29.6 pg Normal 27.0 - 33.0 pg Workflow SS MCHC 33.0 G/dL Normal 32.0 - 36.0 G/dL Workflow SS MCV (RBC) [Entitic vol] 89.7 fL Normal 80.0 - 99.0 fL Workflow SS Monocytes (Bld) [#/Vol] 0.4 103/mcL Normal 0.1 - 1.4 10^3/mcL Workflow SS Monocytes/100 WBC (Bld) 8.6 % Normal 2.0 - 13.0 % Workflow SS Neutrophils (Bld) [#/Vol] 3.1 103/mcL Normal 2.3 - 8.1 10^3/mcL Workflow SS Neutrophils/100 WBC (Bld) 69.8 % Normal 50.0 - 75.0 % Workflow SS Platelet mean volume (Bld) [Entitic vol] 8.2 fL Normal 6.6 - 10.5 fL Workflow SS Platelets (Bld) [#/Vol] 138 103/mcL Low 150 - 450 10^3/mcL AH Workflow SS Potassium [Moles/Vol] 5.8 mmol/L High 3.5 - 5.0 mEq/L ADM SS Protein [Mass/Vol] 5.3 G/dL Low 5.7 - 8.2 G/dL ADM SS RBC (Bld) [#/Vol] 2.88 106/mcL Low 4.10 - 5.3 0 10^6/mcL Workflow SS Sodium [Moles/Vol] 139 mmol/L Normal 136 - 145 mEq/L ADM SS TSH Qn 4.128 mIU/mL Normal 0.550 - 4.780 mIU/mL ADM SS Urea nitrogen [Mass/Vol] 29.0 mg/dL High 8.0 - 22.0 mg/dL ADM SS Urea nitrogen/Creatinine [Mass ratio] 7.3 ratio Low 10.0 - 22.0 ratio ADM SS WBC (Bld) [#/Vol] 4.5 103/mcL Normal 4.5 - 10.8 10^3/mcL Workflow SS LDHon 08-17-2024 LDH 168 U/L Normal 120-246 [facility] Comment on above: Performed By: #### C BC, GFR, AGA, ANEU, TSH, CMP, LD, ADIFF #### [address] [address] RBC (Product)on 08-17-2024 RBC Product Ready RBC Ready for Pickup Normal [facility] Comment on above: Performed By: #### C BC, GFR, AGA, ANEU, TSH, CMP, LD, ADIFF #### [address] [address] TSHon 08-17-2024 TSH 4.128 mIU/mL Normal 0.550-4.780 [facility] Comment on above: Performed By: #### C BC, GFR, AGA, ANEU, TSH, CMP, LD, ADIFF #### [address] [address] .Auto Diffon 07-27-2024 Basophil, Absolute 0.0 10 3/mcL Normal 0.0-0.3 [facility] Comment on above: Performed By: #### C BC, GFR, AGA, ANEU, TSH, CMP, LD, ADIFF #### [address] [address] Basophils/100 WBC (Bld) 0.6 % Normal 0.0-2.5 [facility] Comment on above: Performed By: #### C BC, GFR, AGA, ANEU, TSH, CMP, LD, ADIFF #### [address] [address] Eosinophil, Absolute 0.1 10 3/mcL Normal 0.0-0.7 [facility] Comment on above: Performed By: #### C BC, GFR, AGA, ANEU, TSH, CMP, LD, ADIFF #### [address] [address] Eosinophils/100 WBC (Bld) 2.5 % Normal 0.0-6.0 [facility] Comment on above: Performed By: #### C BC, GFR, AGA, ANEU, TSH, CMP, LD, ADIFF #### [address] [address] Lymphocyte, Absolute 0.9 10 3/mcL Normal 0.9-4.3 [facility] Comment on above: Performed By: #### C BC, GFR, AGA, ANEU, TSH, CMP, LD, ADIFF #### [address] [address] Lymphocytes/100 WBC (Bld) 19.4 % Low 20.0-40.0 [facility] Comment on above: Performed By: #### C BC, GFR, AGA, ANEU, TSH, CMP, LD, ADIFF #### [address] [address] Monocyte, Absolute 0.4 10 3/mcL Normal 0.1-1.4 [facility] Comment on above: Performed By: #### C BC, GFR, AGA, ANEU, TSH, CMP, LD, ADIFF #### [address] [address] Monocytes/100 WBC (Bld) 8.3 % Normal 2.0-13.0 [facility] Comment on above: Performed By: #### C BC, GFR, AGA, ANEU, TSH, CMP, LD, ADIFF #### [address] [address] Neutrophils/100 WBC (Bld) 69.2 % Normal 50.0-75.0 [facility] Comment on above: Performed By: #### C BC, GFR, AGA, ANEU, TSH, CMP, LD, ADIFF #### [address] [address] .GFRon 07-27-2024 Estimated Glomerular Filtration Rate 10 ml/min/1.73sqm Normal [facility] Comment on above: Result Comment: Stages of Chronic Kidney Disease (CKD) Stage Description eGFR(ml/min/1.73 sq.m.) CKD 1 Normal kidney function or >=90 normal kindney function with possible kidney damage (ex. Proteinuria) CKD 2 Kidney damage with mild loss 60-89 of kidney function CKD 3a Mild to moderate loss of kidney 45-59 function CKD 3b Moderate to severe loss of 30-44 of kindey function CKD 4 Severe loss of kidney function 15-29 CKD 5 Kidney failure <15 Note: (go live 2024) the eGFR calculation was updated to the 2020 CKD-EPI creatinine equation without a race factor to calculate the eGFR results. Performed By: #### C BC, GFR, AGA, ANEU, TSH, CMP, LD, ADIFF #### [address] [address] .NEUABSon 07-27-2024 Neutrophil, Absolute 3.3 10 3/mcL Normal 2.3-8.1 [facility] Comment on above: Performed By: #### C BC, GFR, AGA, ANEU, TSH, CMP, LD, ADIFF #### [address] [address] CBCon 07-27-2024 Erythrocyte distribution width (RBC) [Ratio] 17.0 % High 11.5-15.5 [facility] Comment on above: Performed By: #### C BC, GFR, AGA, ANEU, TSH, CMP, LD, ADIFF #### [place] [id number] Hematocrit (Bld) [Volume fraction] 29.3 % Low 34.0-46.0 [facility] Comment on above: Performed By: #### C BC, GFR, AGA, ANEU, TSH, CMP, LD, ADIFF #### [place] [id number] Hgb 9.5 G/dL Low 12.0-16.0 [facility] Comment on above: Performed By: #### C BC, GFR, AGA, ANEU, TSH, CMP, LD, ADIFF #### [address] [address] MCH (RBC) [Entitic mass] 28.6 pg Normal 27.0-33.0 [facility] Comment on above: Performed By: #### C BC, GFR, AGA, ANEU, TSH, CMP, LD, ADIFF #### [place] [id number] MCHC 32.5 G/dL Normal 32.0-36.0 [facility] Comment on above: Performed By: #### C BC, GFR, AGA, ANEU, TSH, CMP, LD, ADIFF #### [place] [id number] MCV (RBC) [Entitic vol] 87.9 fL Normal 80.0-99.0 [facility] Comment on above: Performed By: #### C BC, GFR, AGA, ANEU, TSH, CMP, LD, ADIFF #### [place] [id number] Platelet 179 10 3/mcL Normal 150-450 [facility] Comment on above: Performed By: #### C BC, GFR, AGA, ANEU, TSH, CMP, LD, ADIFF #### [place] [id number] Platelet mean volume (Bld) [Entitic vol] 9.1 fL Normal 6.6-10.5 [facility] Comment on above: Performed By: #### C BC, GFR, AGA, ANEU, TSH, CMP, LD, ADIFF #### 71 [address] [address] RBC 3.33 10 6/mcL Low 4.10-5.30 [facility] Comment on above: Performed By: #### C BC, GFR, AGA, ANEU, TSH, CMP, LD, ADIFF #### [place] [id number] WBC 4.8 10 3/mcL Normal 4.5-10.8 [facility] Comment on above: Performed By: #### C BC, GFR, AGA, ANEU, TSH, CMP, LD, ADIFF #### [place] [address] CMPon 07-27-2024 Albumin Level 2.4 G/dL Low 3.2-4.8 [facility] Comment on above: Performed By: #### C BC, GFR, AGA, ANEU, TSH, CMP, LD, ADIFF #### [place] [address] Albumin/Globulin [Mass ratio] 0.8 {ratio} Low 0.9-1.6 [facility] Comment on above: Performed By: #### C BC, GFR, AGA, ANEU, TSH, CMP, LD, ADIFF #### [address] [address] ALP [Catalytic activity/Vol] 75 U/L Normal 38-126 [facility] Comment on above: Performed By: #### C BC, GFR, AGA, ANEU, TSH, CMP, LD, ADIFF #### [place] [address] ALT/SGPT <7 Low 10-49 [facility] Comment on above: Performed By: #### C BC, GFR, AGA, ANEU, TSH, CMP, LD, ADIFF #### [address] [address] AST [Catalytic activity/Vol] 12 U/L Normal 8-34 [facility] Comment on above: Performed By: #### C BC, GFR, AGA, ANEU, TSH, CMP, LD, ADIFF #### [place] [id number] Bili Total <0.20 Normal 0.20-1.20 [facility] Comment on above: Result Comment: Use of this assay is not recommended for patients undergoing treatment with eltrombopag due to the potential for falsely elevated results. Performed By: #### C BC, GFR, AGA, ANEU, TSH, CMP, LD, ADIFF #### [place] [id number] BUN/Creatinine Ratio 7.8 ratio Low 10.0-22.0 [facility] Comment on above: Performed By: #### C BC, GFR, AGA, ANEU, TSH, CMP, LD, ADIFF #### [place] [id number] Calcium [Mass/Vol] 9.0 mg/dL Normal 8.7-10.4 [facility] Comment on above: Performed By: #### C BC, GFR, AGA, ANEU, TSH, CMP, LD, ADIFF #### [place] [phone] Chloride [Moles/Vol] 98 mmol/L Normal 98-110 [facility] Comment on above: Performed By: #### C BC, GFR, AGA, ANEU, TSH, CMP, LD, ADIFF #### [place] [id number] CO2 [Moles/Vol] 31 mmol/L Normal 22-32 [facility] Comment on above: Performed By: #### C BC, GFR, AGA, ANEU, TSH, CMP, LD, ADIFF #### [place] [id number] Creatinine [Mass/Vol] 4.24 mg/dL High 0.50-1.20 [facility] Comment on above: Result Comment: Test ing performed on Bapul analyzer using enzymatic creatinine methodology. Performed By: #### C BC, GFR, AGA, ANEU, TSH, CMP, LD, ADIFF #### [place] [id number] Electrolyte Balance 7.0 mEq/L Normal 4.0-15.0 [facility] Comment on above: Performed By: #### C BC, GFR, AGA, ANEU, TSH, CMP, LD, ADIFF #### [address] [address] Globulin 3.1 G/dL Normal 1.5-3.8 [facility] Comment on above: Performed By: #### C BC, GFR, AGA, ANEU, TSH, CMP, LD, ADIFF #### [address] [address] Glucose [Mass/Vol] 130 mg/dL High 82-115 [facility] Comment on above: Performed By: #### C BC, GFR, AGA, ANEU, TSH, CMP, LD, ADIFF #### [address] [address] Potassium [Moles/Vol] 4.4 mmol/L Normal 3.5-5.0 [facility] Comment on above: Performed By: #### C BC, GFR, AGA, ANEU, TSH, CMP, LD, ADIFF #### [address] [address] Sodium [Moles/Vol] 136 mmol/L Normal 136-145 [facility] Comment on above: Performed By: #### C BC, GFR, AGA, ANEU, TSH, CMP, LD, ADIFF #### [address] [address] Total Protein 5.5 G/dL Low 5.7-8.2 [facility] Comment on above: Performed By: #### C BC, GFR, AGA, ANEU, TSH, CMP, LD, ADIFF #### [address] [address] Urea nitrogen [Mass/Vol] 33.0 mg/dL High 8.0-22.0 [facility] Comment on above: Performed By: #### C BC, GFR, AGA, ANEU, TSH, CMP, LD, ADIFF #### [address] [address] CORTon 07-27-2024 Cortisol Level 16.0 mcg/dL Normal [facility] Comment on above: Result Comment: Aga isol AM Reference Range 6.5-26.0 mcg/dL Cortisol PM Reference Range 3.5-15.0 mcg/dL Performed By: #### C BC, GFR, AGA, ANEU, TSH, CMP, LD, ADIFF #### [facility] [address] [place] [address] LABORATORYOrdered By: SYSTEM SYSTEM on 07-27-2024 Albumin BCP dye [Mass/Vol] 2.4 G/dL Low 3.2 - 4.8 G/dL AH ADM SS Albumin/Globulin [Mass ratio] 0.8 {ratio} Low 0.9 - 1.6 ratio AH ADM SS ALP [Catalytic activity/Vol] 75 U/L Normal 38 - 126 U/L AH ADM SS ALT No additional P-5'-P [Catalytic activity/Vol] U/L 1 Low 10 - 49 U/L AH ADM SS AST [Catalytic activity/Vol] 12 U/L Normal 8 - 34 U/L AH ADM SS Basophils (Bld) [#/Vol] 0.0 103/mcL Normal 0.0 - 0.3 10^3/mcL Workflow SS Basophils/100 WBC (Bld) 0.6 % Normal 0.0 - 2.5 % Workflow SS Bilirubin [Mass/Vol] mg/dL Normal 0.20 - 1.20 mg/dL AH ADM SS Comment on above: Interpretive Data: U se of this assay is not recommended for patients undergoing treatment with eltrombopag due to the potential for falsely elevated results. Calcium [Mass/Vol] 9.0 mg/dL Normal 8.7 - 10. 4 mg/dL AH ADM SS Chloride [Moles/Vol] 98 mmol/L Normal 98 - 11 0 mEq/L AH ADM SS CO2 [Moles/Vol] 31 mmol/L Normal 22 - 32 mEq/L AH ADM SS Cortisol [Mass/Vol] 16.0 ug/dL Invalid Interpretation Code AH ADM SS Comment on above: Interpretive Data: C ortisol AM Reference Range 6.5-26.0 mcg/dL Cortisol PM Reference Range 3.5-15.0 mcg/dL Creatinine [Mass/Vol] 4.24 mg/dL High 0.50 - 1.20 mg/dL AH ADM SS Comment on above: Interpretive Data: Zeyad urban performed on [employer] CH analyzer using enzymatic creatinine methodology. Electrolyte Balance 7.0 mEq/L Normal 4.0 - 15 .0 mEq/L ADM SS Eosinophils (Bld) [#/Vol] 0.1 103/mcL Normal 0.0 - 0.7 10^3/mcL Workflow SS Eosinophils/100 WBC (Bld) 2.5 % Normal 0.0 - 6.0 % Workflow SS Erythrocyte distribution width (RBC) [Ratio] 17.0 % High 11.5 - 15.5 % Workflow SS Estimated Glomerular Filtration Rate 10 ml/min/1.73sqm Invalid Interpretation Code ADM SS Comment on above: Interpretive Data: Stages of Chronic Kidney Disease (CKD) Stage Description eGFR(ml/min/1.73 sq.m.) CKD 1 Normal kidney function or >=90 normal kindney function with possible kidney damage (ex. Proteinuria) CKD 2 Kidney damage with mild loss 60-89 of kidney function CKD 3a Mild to moderate loss of kidney 45-59 function CKD 3b Moderate to severe loss of 30-44 of kindey function CKD 4 Severe loss of kidney function 15-29 CKD 5 Kidney failure <15 Note: (go live 2024) the eGFR calculation was updated to the 2020 CKD-EPI creatinine equation without a race factor to calculate the eGFR results. Globulin 3.1 G/dL Normal 1.5 - 3.8 G/dL ADM SS Glucose [Mass/Vol] 130 mg/dL High 82 - 115 mg/dL ADM SS Hematocrit (Bld) [Volume fraction] 29.3 % Low 34.0 - 46.0 % Workflow SS Hemoglobin (Bld) [Mass/Vol] 9.5 G/dL Low 12.0 - 16.0 G/dL Workflow SS LDH Lactate to pyruvate reaction [Catalytic activity/Vol] 149 1 Normal 120 - 246 U/L ADM SS Lymphocytes (Bld) [#/Vol] 0.9 103/mcL Normal 0.9 - 4.3 10^3/mcL Workflow SS Lymphocytes/100 WBC (Bld) 19.4 % Low 20.0 - 40.0 % Workflow SS MCH (RBC) [Entitic mass] 28.6 pg Normal 27.0 - 33.0 pg Workflow SS MCHC 32.5 G/dL Normal 32.0 - 36.0 G/dL AH Workflow SS MCV (RBC) [Entitic vol] 87.9 fL Normal 80.0 - 99.0 fL AH Workflow SS Monocytes (Bld) [#/Vol] 0.4 103/mcL Normal 0.1 - 1.4 10^3/mcL AH Workflow SS Monocytes/100 WBC (Bld) 8.3 % Normal 2.0 - 13.0 % AH Workflow SS Neutrophils (Bld) [#/Vol] 3.3 103/mcL Normal 2.3 - 8.1 10^3/mcL AH Workflow SS Neutrophils/100 WBC (Bld) 69.2 % Normal 50.0 - 75.0 % AH Workflow SS Platelet mean volume (Bld) [Entitic vol] 9.1 fL Normal 6.6 - 10.5 fL AH Workflow SS Platelets (Bld) [#/Vol] 179 103/mcL Normal 150 - 450 10^3/mcL AH Workflow SS Potassium [Moles/Vol] 4.4 mmol/L Normal 3.5 - 5.0 mEq/L AH ADM SS Protein [Mass/Vol] 5.5 G/dL Low 5.7 - 8.2 G/dL AH ADM SS RBC (Bld) [#/Vol] 3.33 106/mcL Low 4.10 - 5.3 0 10^6/mcL AH Workflow SS Sodium [Moles/Vol] 136 mmol/L Normal 136 - 145 mEq/L AH ADM SS TSH Qn 2.820 mIU/mL Normal 0.550 - 4.780 mIU/mL ADM SS Urea nitrogen [Mass/Vol] 33.0 mg/dL High 8.0 - 22.0 mg/dL AH ADM SS Urea nitrogen/Creatinine [Mass ratio] 7.8 ratio Low 10.0 - 22.0 ratio AH ADM SS WBC (Bld) [#/Vol] 4.8 103/mcL Normal 4.5 - 10.8 10^3/mcL Workflow SS LDHon 07-27-2024 LDH 149 U/L Normal 120-246 [facility] Comment on above: Performed By: #### C BC, GFR, AGA, ANEU, TSH, CMP, LD, ADIFF #### [facility] [address] [place] [address] TSHon 07-27-2024 TSH 2.820 mIU/mL Normal 0.550-4.780 [facility] Comment on above: Performed By: #### C BC, GFR, AGA, ANEU, TSH, CMP, LD, ADIFF #### [place] [address] Anion gap [Moles/Vol]Ordered By: Osmani Morgan on 07-19-2024 Anion gap in Serum or Plasma 15 5-15 [facility] Anion gap in Serum or Plasma Ordered By: Osmani Morgan on 07-19-2024 Anion gap [Moles/Vol] 15 mmol/L 5-15 [facility] BUN/creatinine ratioOrdered By: Osmani Morgan on 07-19-2024 Urea nitrogen/Creatinine [Mass ratio] 9.1 mg/mg Low 10-20 [facility] BUN/creatinine ratio 9.1 RATIO Low 10-20 [facility] Calcium [Mass/Vol]Ordered By : Osmani Morgan on 07-19-2024 Serum or plasma calcium measurement (mass/volume) 9.2 mg/dL 7.6-11.0 [facility] Carbon dioxide, total [Moles /volume] in Central venous bloodOrdered By: Osmani Morgan on 07-19-2024 CO2 [Moles/Vol] 22.9 mmol/L 21.0-32.0 [facility] Carbon dioxide, total [Moles/volume] in Central venous blood 22.9 mmol/L 21.0-32.0 [facility] Chloride assayOrdered By: Fatoumata Morgan on 07-19-2024 Chloride [Moles/Vol] 97 mmol/L Low 98-108 [facility] Chloride assay 97 mmol/L Low 98-108 [facility] Creatinine [Mass/Vol]Ordered By: Osmani Morgan on 07-19-2024 Serum creatinine measurement (mass/volume) 6.44 mg/dL High 0.70-1.20 [facility] Erythrocyte distribution wid th (RBC) [Ratio]Ordered By: Osmani Morgan on 07-19-2024 Erythrocyte distribution width ratio 16.2 % High 11.6-14.6 [facility] Erythrocyte distribution width standard deviation 55.4 fl High 35.1-43.9 [facility] Erythrocyte distribution wid th ratioOrdered By: Osmani Morgan on 07-19-2024 Erythrocyte distribution width (RBC) [Ratio] 16.2 % High 11.6-14.6 [facility] Erythrocyte distribution wid th standard deviationOrdered By: Osmani Morgan on 07-19-2024 Erythrocyte distribution width (RBC) [Ratio] 55.4 fl High 35.1-43.9 [facility] GFR/1.73 sq M.predicted lia g non-blacks MDRD (S/P/Bld) [Vol rate/Area]Ordered By: Osmani Morgan on 07-19-2024 Glomerular filtration rate (GFR) estimation/1.73 sq m using serum, plasma, or whole b 6 Low >60 [facility] Glomerular filtration rate ( GFR) estimation/1.73 sq m using serum, plasma, or whole bOrdered By: Osmani Morgan on 07-19-2024 GFR/1.73 sq M.predicted among non-blacks MDRD (S/P/Bld) [Vol rate/Area] 6 mL/min/{1.73_m2} Low >60 [facility] Comment on above: mL/min/1.73m2 CKD-EP I Creatinine Equation (2020) Glucose [Mass/Vol]Ordered By : Osmani Morgan on 07-19-2024 Serum glucose measurement (mass/volume) 157 mg/dL High 70-99 [facility] Hematocrit Auto (Bld) [Volum e fraction]Ordered By: Osmani Morgan on 07-19-2024 Hematocrit (Bld) [Volume fraction] 26.0 % Low 37-47 [facility] Automated blood hematocrit (percentage) 26.0 % Low 37-47 [facility] Hemoglobin measurementOrdere d By: Osmani Morgan on 07-19-2024 Hemoglobin (Bld) [Mass/Vol] 8.1 g/dL Low 12.0-15.0 [facility] Hemoglobin measurement 8.1 g/dL Low 12.0-15.0 [facility] MCV (RBC) [Entitic vol]Order ed By: Osmani Morgan on 07-19-2024 MCV (mean corpuscular volume) determination 95.6 fL 81-99 [facility] MCV (mean corpuscular volume ) determinationOrdered By: Osmani Morgan on 07-19-2024 MCV (RBC) [Entitic vol] 95.6 fL 81-99 [facility] Mean corpuscular hemoglobin (MCH) determinationOrdered By: Osmani Morgan on 07-19-2024 MCH (RBC) [Entitic mass] 29.8 pg 27.0-32.0 [facility] Mean corpuscular hemoglobin (MCH) determination 29.8 pg 27.0-32.0 [facility] Mean corpuscular hemoglobin concentration (MCHC) determinationOrdered By: Osmani Morgan on 07-19-2024 MCHC (RBC) [Mass/Vol] 31.2 g/dL Low 32-36 [facility] Mean corpuscular hemoglobin concentration (MCHC) determination 31.2 g/dL Low 32-36 [facility] Mean platelet volume determi nationOrdered By: Osmani Morgan on 07-19-2024 Platelet mean volume (Bld) [Entitic vol] 11.8 fL 6.2-12.0 [facility] Mean platelet volume determination 11.8 fl 6.2-12.0 [facility] Platelet countOrdered By: Fatoumata Morgan on 07-19-2024 Platelets (Bld) [#/Vol] 140 10*3/uL Low 150-450 [facility] Platelet count 140 K/mm3 Low 150-450 [facility] Potassium (Unsp spec) [Mass/ Vol]Ordered By: Osmani Morgan on 07-19-2024 Potassium measurement (mass/volume) 4.6 mmol/L 3.3-5.1 [facility] Potassium measurement (mass/ volume)Ordered By: Osmani Morgan on 07-19-2024 Potassium (Unsp spec) [Mass/Vol] 4.6 mmol/L 3.3-5.1 [facility] RBC Auto (Bld) [#/Vol]Ordere d By: Osmani Morgan on 07-19-2024 RBC (Bld) [#/Vol] 2.72 10*6/uL Low 4.2-5.4 [facility] Automated blood erythrocyte count 2.72 M/mm3 Low 4.2-5.4 [facility] Serum creatinine measurement (mass/volume)Ordered By: Osamni Morgan on 07-19-2024 Creatinine [Mass/Vol] 6.44 mg/dL High 0.70-1.20 [facility] Serum glucose measurement (m ass/volume)Ordered By: Osmani Morgan on 07-19-2024 Glucose [Mass/Vol] 157 mg/dL High 70-99 [facility] Serum or plasma calcium sandra urement (mass/volume)Ordered By: Osmani Morgan on 07-19-2024 Calcium [Mass/Vol] 9.2 mg/dL 7.6-11.0 [facility] Serum or plasma urea nitroge n measurement (mass/volume)Ordered By: Osmani Morgan on 07-19-2024 Urea nitrogen [Mass/Vol] 59 mg/dL High 08-14 [facility] Sodium levelOrdered By: Patrick Morgan on 07-19-2024 Sodium [Moles/Vol] 135 mmol/L 133-145 [facility] Sodium level 135 mmol/L 133-145 [facility] Urea nitrogen [Mass/Vol]Orde red By: Osmani Morgan on 07-19-2024 Serum or plasma urea nitrogen measurement (mass/volume) 59 mg/dL High 08-14 [facility] White blood cell (WBC) count Ordered By: Osmani Morgan on 07-19-2024 WBC (Bld) [#/Vol] 4.0 10*3/uL Low 4.4-11.0 [facility] White blood cell (WBC) count 4.0 K/mm3 Low 4.4-11.0 [facility] Anion gap [Moles/Vol]Ordered By: Osmani Morgan on 07-12-2024 Anion gap in Serum or Plasma 11 - [facility] Anion gap in Serum or Plasma Ordered By: Osmani Morgan on 07-12-2024 Anion gap [Moles/Vol] 11 mmol/L 09-09 [facility] BUN/creatinine ratioOrdered By: Osmnai Morgan on 07-12-2024 Urea nitrogen/Creatinine [Mass ratio] 6.9 mg/mg Low 10-20 [facility] BUN/creatinine ratio 6.9 RATIO Low 10-20 [facility] Calcium [Mass/Vol]Ordered By : Osmani Morgan on 07-12-2024 Serum or plasma calcium measurement (mass/volume) 9.1 mg/dL 7.6-11.0 [facility] Carbon dioxide, total [Moles /volume] in Central venous bloodOrdered By: Osmani Morgan on 07-12-2024 CO2 [Moles/Vol] 24.2 mmol/L 21.0-32.0 [facility] Carbon dioxide, total [Moles/volume] in Central venous blood 24.2 mmol/L 21.0-32.0 [facility] Chloride assayOrdered By: Fatoumata Morgan on 07-12-2024 Chloride [Moles/Vol] 100 mmol/L 98-108 [facility] Chloride assay 100 mmol/L 98-108 [facility] Creatinine [Mass/Vol]Ordered By: Osmani Morgan on 07-12-2024 Serum creatinine measurement (mass/volume) 6.76 mg/dL High 0.70-1.20 [facility] Erythrocyte distribution wid th (RBC) [Ratio]Ordered By: Osmani Morgan on 07-12-2024 Erythrocyte distribution width ratio 15.4 % High 11.6-14.6 [facility] Erythrocyte distribution width standard deviation 53.4 fl High 35.1-43.9 [facility] Erythrocyte distribution wid th ratioOrdered By: Osmani Morgan on 07-12-2024 Erythrocyte distribution width (RBC) [Ratio] 15.4 % High 11.6-14.6 [facility] Erythrocyte distribution wid th standard deviationOrdered By: Osmani Morgan on 07-12-2024 Erythrocyte distribution width (RBC) [Ratio] 53.4 fl High 35.1-43.9 [facility] GFR/1.73 sq M.predicted lia g non-blacks MDRD (S/P/Bld) [Vol rate/Area]Ordered By: Osmani Morgan on 07-12-2024 Glomerular filtration rate (GFR) estimation/1.73 sq m using serum, plasma, or whole b 6 Low >60 [facility] Glomerular filtration rate ( GFR) estimation/1.73 sq m using serum, plasma, or whole bOrdered By: Osmani Morgan on 07-12-2024 GFR/1.73 sq M.predicted among non-blacks MDRD (S/P/Bld) [Vol rate/Area] 6 mL/min/{1.73_m2} Low >60 [facility] Comment on above: mL/min/1.73m2 CKD-EP I Creatinine Equation (2020) Glucose [Mass/Vol]Ordered By : Osmani Morgan on 07-12-2024 Serum glucose measurement (mass/volume) 91 mg/dL 70-99 [facility] Hematocrit Auto (Bld) [Volum e fraction]Ordered By: Osmani Morgan on 07-12-2024 Hematocrit (Bld) [Volume fraction] 25.5 % Low 37-47 [facility] Automated blood hematocrit (percentage) 25.5 % Low 37-47 [facility] Hemoglobin measurementOrdere d By: Osmani Morgan on 07-12-2024 Hemoglobin (Bld) [Mass/Vol] 8.0 g/dL Low 12.0-15.0 [facility] Hemoglobin measurement 8.0 g/dL Low 12.0-15.0 [facility] MCV (RBC) [Entitic vol]Order ed By: Osmani Morgan on 07-12-2024 MCV (mean corpuscular volume) determination 94.4 fL 81-99 [facility] MCV (mean corpuscular volume ) determinationOrdered By: Osmani Morgan on 07-12-2024 MCV (RBC) [Entitic vol] 94.4 fL 81-99 [facility] Mean corpuscular hemoglobin (MCH) determinationOrdered By: Osmani Morgan on 07-12-2024 MCH (RBC) [Entitic mass] 29.6 pg 27.0-32.0 [facility] Mean corpuscular hemoglobin (MCH) determination 29.6 pg 27.0-32.0 [facility] Mean corpuscular hemoglobin concentration (MCHC) determinationOrdered By: Osmani Morgan on 07-12-2024 MCHC (RBC) [Mass/Vol] 31.4 g/dL Low 32-36 [facility] Mean corpuscular hemoglobin concentration (MCHC) determination 31.4 g/dL Low 32-36 [facility] Mean platelet volume determi nationOrdered By: Osmani Morgan on 07-12-2024 Platelet mean volume (Bld) [Entitic vol] 11.7 fL 6.2-12.0 [facility] Mean platelet volume determination 11.7 fl 6.2-12.0 [facility] Platelet countOrdered By: Fatoumata Morgan on 07-12-2024 Platelets (Bld) [#/Vol] 122 10*3/uL Low 150-450 [facility] Platelet count 122 K/mm3 Low 150-450 [facility] Potassium (Unsp spec) [Mass/ Vol]Ordered By: Osmani Morgan on 07-12-2024 Potassium measurement (mass/volume) 5.3 mmol/L High 3.3-5.1 [facility] Potassium measurement (mass/ volume)Ordered By: Osmani Morgan on 07-12-2024 Potassium (Unsp spec) [Mass/Vol] 5.3 mmol/L High 3.3-5.1 [facility] RBC Auto (Bld) [#/Vol]Ordere d By: Osmani Morgan on 07-12-2024 RBC (Bld) [#/Vol] 2.70 10*6/uL Low 4.2-5.4 [facility] Automated blood erythrocyte count 2.70 M/mm3 Low 4.2-5.4 [facility] Serum creatinine measurement (mass/volume)Ordered By: Osmani Morgan on 07-12-2024 Creatinine [Mass/Vol] 6.76 mg/dL High 0.70-1.20 [facility] Serum glucose measurement (m ass/volume)Ordered By: Osmani Morgan on 07-12-2024 Glucose [Mass/Vol] 91 mg/dL 70-99 [facility] Serum or plasma calcium sandra urement (mass/volume)Ordered By: Osmani Morgan on 07-12-2024 Calcium [Mass/Vol] 9.1 mg/dL 7.6-11.0 [facility] Serum or plasma urea nitroge n measurement (mass/volume)Ordered By: Osmani Morgan on 07-12-2024 Urea nitrogen [Mass/Vol] 46 mg/dL High 08-14 [facility] Sodium levelOrdered By: Fatoumataodilia chela Cathy on 07-12-2024 Sodium [Moles/Vol] 136 mmol/L 133-145 [facility] Sodium level 136 mmol/L 133-145 [facility] Urea nitrogen [Mass/Vol]Orde red By: Osmani Morgan on 07-12-2024 Serum or plasma urea nitrogen measurement (mass/volume) 46 mg/dL High 08-14 [facility] White blood cell (WBC) count Ordered By: Osmani Morgan on 07-12-2024 WBC (Bld) [#/Vol] 3.3 10*3/uL Low 4.4-11.0 [facility] White blood cell (WBC) count 3.3 K/mm3 Low 4.4-11.0 [facility] 36on 07-08-2024 36 Called patient made apt Normal S [facility] .Auto Diffon 07-06-2024 Basophil, Absolute 0.0 10 3/mcL Normal 0.0-0.3 [facility] Comment on above: Performed By: #### C BC, GFR, AGA, ANEU, TSH, CMP, LD, ADIFF #### [address] [address] Basophils/100 WBC (Bld) 0.4 % Normal 0.0-2.5 [facility] Comment on above: Performed By: #### C BC, GFR, AGA, ANEU, TSH, CMP, LD, ADIFF #### [address] [address] Eosinophil, Absolute 0.2 10 3/mcL Normal 0.0-0.7 [facility] Comment on above: Performed By: #### C BC, GFR, AGA, ANEU, TSH, CMP, LD, ADIFF #### [address] [address] Eosinophils/100 WBC (Bld) 4.5 % Normal 0.0-6.0 [facility] Comment on above: Performed By: #### C BC, GFR, AGA, ANEU, TSH, CMP, LD, ADIFF #### [address] [address] Lymphocyte, Absolute 0.9 10 3/mcL Normal 0.9-4.3 [facility] Comment on above: Performed By: #### C BC, GFR, AGA, ANEU, TSH, CMP, LD, ADIFF #### [address] [address] Lymphocytes/100 WBC (Bld) 21.2 % Normal 20.0-40.0 [facility] Comment on above: Performed By: #### C BC, GFR, AGA, ANEU, TSH, CMP, LD, ADIFF #### [address] [address] Monocyte, Absolute 0.4 10 3/mcL Normal 0.1-1.4 [facility] Comment on above: Performed By: #### C BC, GFR, AGA, ANEU, TSH, CMP, LD, ADIFF #### [address] [address] Monocytes/100 WBC (Bld) 9.4 % Normal 2.0-13.0 [facility] Comment on above: Performed By: #### C BC, GFR, AGA, ANEU, TSH, CMP, LD, ADIFF #### [address] [address] Neutrophils/100 WBC (Bld) 64.5 % Normal 50.0-75.0 [facility] Comment on above: Performed By: #### C BC, GFR, AGA, ANEU, TSH, CMP, LD, ADIFF #### [address] [address] .GFRon 07-06-2024 Estimated Glomerular Filtration Rate 10 ml/min/1.73sqm Normal [facility] Comment on above: Result Comment: Stages of Chronic Kidney Disease (CKD) Stage Description eGFR(ml/min/1.73 sq.m.) CKD 1 Normal kidney function or >=90 normal kindney function with possible kidney damage (ex. Proteinuria) CKD 2 Kidney damage with mild loss 60-89 of kidney function CKD 3a Mild to moderate loss of kidney 45-59 function CKD 3b Moderate to severe loss of 30-44 of kindey function CKD 4 Severe loss of kidney function 15-29 CKD 5 Kidney failure <15 Note: (go live 2024) the eGFR calculation was updated to the 2020 CKD-EPI creatinine equation without a race factor to calculate the eGFR results. Performed By: #### C BC, GFR, AGA, ANEU, TSH, CMP, LD, ADIFF #### [place] [address] .NEUABSon 07-06-2024 Neutrophil, Absolute 2.6 10 3/mcL Normal 2.3-8.1 [facility] MAIN Comment on above: Performed By: #### C BC, GFR, AGA, ANEU, TSH, CMP, LD, ADIFF #### [place] [address] CBCon 07-06-2024 Erythrocyte distribution width (RBC) [Ratio] 17.6 % High 11.5-15.5 [facility] MAIN Comment on above: Performed By: #### C BC, GFR, AGA, ANEU, TSH, CMP, LD, ADIFF #### [place] [address] Hematocrit (Bld) [Volume fraction] 27.4 % Low 34.0-46.0 [facility] MAIN Comment on above: Performed By: #### C BC, GFR, AGA, ANEU, TSH, CMP, LD, ADIFF #### [place] [address] Hgb 9.0 G/dL Low 12.0-16.0 [facility] MAIN Comment on above: Performed By: #### C BC, GFR, AGA, ANEU, TSH, CMP, LD, ADIFF #### [place] [address] MCH (RBC) [Entitic mass] 30.3 pg Normal 27.0-33.0 [facility] MAIN Comment on above: Performed By: #### C BC, GFR, AGA, ANEU, TSH, CMP, LD, ADIFF #### [place] [id number] MCHC 32.9 G/dL Normal 32.0-36.0 [facility] MAIN Comment on above: Performed By: #### C BC, GFR, AGA, ANEU, TSH, CMP, LD, ADIFF #### [place] [id number] MCV (RBC) [Entitic vol] 91.9 fL Normal 80.0-99.0 [facility] MAIN Comment on above: Performed By: #### C BC, GFR, AGA, ANEU, TSH, CMP, LD, ADIFF #### [place] [address] Platelet 139 10 3/mcL Low 150-450 [facility] MAIN Comment on above: Performed By: #### C BC, GFR, AGA, ANEU, TSH, CMP, LD, ADIFF #### [place] [address] Platelet mean volume (Bld) [Entitic vol] 9.0 fL Normal 6.6-10.5 [facility] MAIN Comment on above: Performed By: #### C BC, GFR, AGA, ANEU, TSH, CMP, LD, ADIFF #### [place] [address] RBC 2.98 10 6/mcL Low 4.10-5.30 [facility] MAIN Comment on above: Performed By: #### C BC, GFR, AGA, ANEU, TSH, CMP, LD, ADIFF #### [place] [id number] WBC 4.1 10 3/mcL Low 4.5-10.8 [facility] MAIN Comment on above: Performed By: #### C BC, GFR, AGA, ANEU, TSH, CMP, LD, ADIFF #### [place] [address] CMPon 07-06-2024 Albumin Level 2.3 G/dL Low 3.2-4.8 [facility] MAIN Comment on above: Performed By: #### C BC, GFR, AGA, ANEU, TSH, CMP, LD, ADIFF #### [place] [id number] Albumin/Globulin [Mass ratio] 0.9 {ratio} Normal 0.9-1.6 [facility] MAIN Comment on above: Performed By: #### C BC, GFR, AGA, ANEU, TSH, CMP, LD, ADIFF #### [place] [id number] ALP [Catalytic activity/Vol] 84 U/L Normal 38-126 [facility] MAIN Comment on above: Performed By: #### C BC, GFR, AGA, ANEU, TSH, CMP, LD, ADIFF #### [place] [id number] ALT [Catalytic activity/Vol] 9 U/L Low 10-49 [facility] MAIN Comment on above: Performed By: #### C BC, GFR, AGA, ANEU, TSH, CMP, LD, ADIFF #### [place] [id number] AST [Catalytic activity/Vol] 12 U/L Normal 8-34 [facility] MAIN Comment on above: Performed By: #### C BC, GFR, AGA, ANEU, TSH, CMP, LD, ADIFF #### [place] [id number] Bili Total <0.20 Normal 0.20-1.20 [facility] MAIN Comment on above: Result Comment: Use of this assay is not recommended for patients undergoing treatment with eltrombopag due to the potential for falsely elevated results. Performed By: #### C BC, GFR, AGA, ANEU, TSH, CMP, LD, ADIFF #### [place] [id number] BUN/Creatinine Ratio 6.3 ratio Low 10.0-22.0 [facility] MAIN Comment on above: Performed By: #### C BC, GFR, AGA, ANEU, TSH, CMP, LD, ADIFF #### [place] [id number] Calcium [Mass/Vol] 9.2 mg/dL Normal 8.7-10.4 [facility] MAIN Comment on above: Performed By: #### C BC, GFR, AGA, ANEU, TSH, CMP, LD, ADIFF #### [address] [address] Chloride [Moles/Vol] 103 mmol/L Normal 98-110 [facility] MAIN Comment on above: Performed By: #### C BC, GFR, AGA, ANEU, TSH, CMP, LD, ADIFF #### [address] [address] CO2 [Moles/Vol] 34 mmol/L High 22-32 [facility] MAIN Comment on above: Performed By: #### C BC, GFR, AGA, ANEU, TSH, CMP, LD, ADIFF #### [address] [address] Creatinine [Mass/Vol] 4.10 mg/dL High 0.50-1.20 [facility] MAIN Comment on above: Result Comment: Test ing performed on Bapul analyzer using enzymatic creatinine methodology. Performed By: #### C BC, GFR, AGA, ANEU, TSH, CMP, LD, ADIFF #### [address] [address] Electrolyte Balance 0.0 mEq/L Low 4.0-15.0 [facility] MAIN Comment on above: Performed By: #### C BC, GFR, AGA, ANEU, TSH, CMP, LD, ADIFF #### [address] [address] Globulin 2.6 G/dL Normal 1.5-3.8 [facility] MAIN Comment on above: Performed By: #### C BC, GFR, AGA, ANEU, TSH, CMP, LD, ADIFF #### [address] [address] Glucose [Mass/Vol] 159 mg/dL High 82-115 [facility] MAIN Comment on above: Performed By: #### C BC, GFR, AGA, ANEU, TSH, CMP, LD, ADIFF #### [address] [address] Potassium [Moles/Vol] 4.3 mmol/L Normal 3.5-5.0 [facility] MAIN Comment on above: Performed By: #### C BC, GFR, AGA, ANEU, TSH, CMP, LD, ADIFF #### [place] [id number] Sodium [Moles/Vol] 137 mmol/L Normal 136-145 [facility] MAIN Comment on above: Performed By: #### C BC, GFR, AGA, ANEU, TSH, CMP, LD, ADIFF #### [place] [id number] Total Protein 4.9 G/dL Low 5.7-8.2 [facility] MAIN Comment on above: Performed By: #### C BC, GFR, AGA, ANEU, TSH, CMP, LD, ADIFF #### [place] [address] Urea nitrogen [Mass/Vol] 26.0 mg/dL High 8.0-22.0 [facility] MAIN Comment on above: Performed By: #### C BC, GFR, AGA, ANEU, TSH, CMP, LD, ADIFF #### [place] [address] CORTon 07-06-2024 Cortisol Level 12.1 mcg/dL Normal [facility] MAIN Comment on above: Result Comment: Aga isol AM Reference Range 6.5-26.0 mcg/dL Cortisol PM Reference Range 3.5-15.0 mcg/dL Performed By: #### C BC, GFR, AGA, ANEU, TSH, CMP, LD, ADIFF #### [place] [address] CT ABDOMEN/PELVIS W/O CONTRA STon 07-06-2024 CT ABDOMEN/PELVIS W/O CONTRAST ORIGINAL EXAMINATION: CT OF THE ABDOMEN AND PELVIS WITHOUT CONTRAST 07/01/2024 3:35 pm TECHNIQUE: CT of the abdomen and pelvis was performed without the administration of intravenous contrast. Multiplanar reformatted images are provided for review. Automated exposure control, iterative reconstruction, and/or weight based adjustment of the mA/kV was utilized to reduce the radiation dose to as low as reasonably achievable. COMPARISON: CT abdomen pelvis 03/14/2022 HISTORY: ORDERING SYSTEM PROVIDED HISTORY: Reason for Exam: urothelial cancer urothelial cancer follow up. pt c/o SOB x 1 month. no other complaints. getting ready to start chemo treatments FINDINGS: Recist 1.1 criteria does not apply on a noncontrast exam. CT chest dictated separately. The aorta is nonaneurysmal with severe atherosclerosis. No adenopathy within the abdomen and pelvis on this non con exam. The liver, gallbladder, spleen, pancreas, and bilateral adrenal glands are unremarkable. Prior right nephrectomy. Multiple simple appearing left renal cysts measuring up to 3 cm in the upper pole. Massively thickened irregular appearing bladder compatible with primary malignancy. Within the left lower aspect of the bladder lumen there is layering hyperdensity favored to represent blood products. There is moderate adjacent perivesicular infiltrative changes. There is additional thickening of the distal left ureter near the UVJ concerning for tumoral extension. No left hydronephrosis. This is all new from at least the CT abdomen pelvis 03/14/2022. Prior partial hysterectomy. No pneumoperitoneum or free fluid. The large and small bowel are normal in caliber. The appendix is unremarkable. Scattered colonic diverticula without evidence of diverticulitis. No inflammatory changes of the GI tract. No acute osseous abnormality. No suspicious osseous lesion. Chronic appearing few lateral and posterior left lower rib deformities. Degenerative changes of the spine. Anasarca. IMPRESSION: Massively thickened and irregular bladder with perivesicular infiltration, most consistent with primary malignancy. Additional likely tumoral extension into the distal left ureter at the UVJ without resultant hydronephrosis. Correlate with tissue sample as appropriate. No definitive oneil extension or distant possible metastatic disease noted on this noncontrast exam. I have personally reviewed the images of this examination and agree with the resident's findings and interpretation. Interpreted by: Ema Rocha MD Preliminary Report By: Christopher Woodward Electronically signed By Ema Rocha MD Dictated Date: 07/06/2024 9:29:07 AM Prelim Date: 07/06/2024 11:12:16 AM Sign Date: 07/06/2024 11:12:16 AM Ordering Provider: ROSEANNE BACA [facility] MAIN CT THORAX W/O CONTRASTon CT THORAX W/O CONTRAST ORIGINAL EXAMINATION: CT OF THE CHEST WITHOUT CONTRAST07/01/2024 3:35 pm TECHNIQUE: This exam was performed according to our departmental dose optimization program, including but not limited to: automated exposure control, adjustment of the mAs and/or kVp according to patient size and/or exam, and use of an iterative reconstruction algorithm where applicable. COMPARISON: CT chest 03/16/2022, 10/17/2020 HISTORY: ORDERING SYSTEM PROVIDED HISTORY: Reason for Exam: urothelial cancer urothelial cancer follow up. pt c/o SOB x 1 month. no other complaints. getting ready to start chemo treatments FINDINGS: Evaluation is suboptimal secondary to the lack of IV contrast. BONES: No suspicious osseous lesions. Degenerative changes of the spine. Remodeled left lower rib deformities. THYROID/AIRWAY: 1.8 cm hypodense nodule in the left thyroid gland. The trachea and mainstem bronchi are clear. HEART: Mild cardiomegaly. There is a small amount of pericardial fluid. Coronary artery and aortic atherosclerosis. The great vessels are normal in course and caliber. Right internal jugular central venous catheter terminates at the cavoatrial junction. LYMPH NODES: No pathologically enlarged mediastinal or axillary lymph nodes. There is no hilar lymphadenopathy identified given the lack of IV contrast. LUNGS: Scattered pleuroparenchymal scarring. Small left and trace right pleural effusion with adjacent atelectasis/consolidatio n. 0.2 cm pleural base nodule along the right major fissure is grossly similar to prior (302; 20). Additional stable scattered micro-nodules are visualized bilaterally. No suspicious pulmonary nodules or masses. No pneumothorax. ABDOMEN: Same day CT abdomen pelvis is reported separately. IMPRESSION: No definite evidence of metastatic disease. 1.8 cm left thyroid nodule. Nonemergent thyroid ultrasound is recommended. Small left and trace right pleural effusions with adjacent atelectasis/consolidatio n. Additional chronic and incidental findings as above. I have personally reviewed the images of this examination and agree with the resident's findings and interpretation. Interpreted by: Ricky Ferguson DO Preliminary Report By: Peterson Abdul Electronically signed By Ricky Ferguson DO Dictated Date: 07/06/2024 11:23:17 AM Prelim Date: 07/06/2024 11:47:33 AM Sign Date: 07/06/2024 11:47:33 AM Ordering Provider: ROSEANNE BACA Normal [facility] MAIN Nicolette 07-06-2024 Ferritin [Mass/Vol] 613.5 ng/mL High 8.0-252.0 [facility] MAIN Comment on above: Performed By: #### C BC, GFR, AGA, ANEU, TSH, CMP, LD, ADIFF #### [place] [address] FESon 07-06-2024 Iron [Mass/Vol] 39 ug/dL Low 50-170 [facility] MAIN Comment on above: Performed By: #### C BC, GFR, AGA, ANEU, TSH, CMP, LD, ADIFF #### [place] [address] Iron Sat 17 % Normal [facility] MAIN Comment on above: Performed By: #### C BC, GFR, AGA, ANEU, TSH, CMP, LD, ADIFF #### [place] [address] TIBC 228 mcg/dL Low 250-500 [facility] MAIN Comment on above: Performed By: #### C BC, GFR, AGA, ANEU, TSH, CMP, LD, ADIFF #### [place] [address] LABORATORYOrdered By: SYSTEM SYSTEM on 07-06-2024 Albumin BCP dye [Mass/Vol] 2.3 G/dL Low 3.2 - 4.8 G/dL ADM SS Albumin/Globulin [Mass ratio] 0.9 {ratio} Normal 0.9 - 1.6 ratio ADM SS ALP [Catalytic activity/Vol] 84 U/L Normal 38 - 126 U/L ADM SS ALT No additional P-5'-P [Catalytic activity/Vol] 9 U/L Low 10 - 49 U/L ADM SS AST [Catalytic activity/Vol] 12 U/L Normal 8 - 34 U/L ADM SS Basophils (Bld) [#/Vol] 0.0 103/mcL Normal 0.0 - 0.3 10^3/mcL Workflow SS Basophils/100 WBC (Bld) 0.4 % Normal 0.0 - 2.5 % Workflow SS Bilirubin [Mass/Vol] mg/dL Normal 0.20 - 1.20 mg/dL ADM SS Comment on above: Interpretive Data: U se of this assay is not recommended for patients undergoing treatment with eltrombopag due to the potential for falsely elevated results. Calcium [Mass/Vol] 9.2 mg/dL Normal 8.7 - 10. 4 mg/dL ADM SS Chloride [Moles/Vol] 103 mmol/L Normal 98 - 11 0 mEq/L ADM SS CO2 [Moles/Vol] 34 mmol/L High 22 - 32 mEq/L ADM SS Cortisol [Mass/Vol] 12.1 ug/dL Invalid Interpretation Code ADM SS Comment on above: Interpretive Data: C ortisol AM Reference Range 6.5-26.0 mcg/dL Cortisol PM Reference Range 3.5-15.0 mcg/dL Creatinine [Mass/Vol] 4.10 mg/dL High 0.50 - 1.20 mg/dL ADM SS Comment on above: Interpretive Data: T esting performed on Bapul analyzer using enzymatic creatinine methodology. Electrolyte Balance 0.0 mEq/L Low 4.0 - 15 .0 mEq/L ADM SS Eosinophils (Bld) [#/Vol] 0.2 103/mcL Normal 0.0 - 0.7 10^3/mcL Workflow SS Eosinophils/100 WBC (Bld) 4.5 % Normal 0.0 - 6.0 % Workflow SS Erythrocyte distribution width (RBC) [Ratio] 17.6 % High 11.5 - 15.5 % Workflow SS Estimated Glomerular Filtration Rate 10 ml/min/1.73sqm Invalid Interpretation Code ADM SS Comment on above: Interpretive Data: Stages of Chronic Kidney Disease (CKD) Stage Description eGFR(ml/min/1.73 sq.m.) CKD 1 Normal kidney function or >=90 normal kindney function with possible kidney damage (ex. Proteinuria) CKD 2 Kidney damage with mild loss 60-89 of kidney function CKD 3a Mild to moderate loss of kidney 45-59 function CKD 3b Moderate to severe loss of 30-44 of kindey function CKD 4 Severe loss of kidney function 15-29 CKD 5 Kidney failure <15 Note: (go live 2024) the eGFR calculation was updated to the 2020 CKD-EPI creatinine equation without a race factor to calculate the eGFR results. Ferritin [Mass/Vol] 613.5 ng/mL High 8.0 - 25 2.0 ng/mL ADM SS Globulin 2.6 G/dL Normal 1.5 - 3.8 G/dL ADM SS Glucose [Mass/Vol] 159 mg/dL High 82 - 115 mg/dL ADM SS Hematocrit (Bld) [Volume fraction] 27.4 % Low 34.0 - 46.0 % AH Workflow SS Hemoglobin (Bld) [Mass/Vol] 9.0 G/dL Low 12.0 - 16.0 G/dL AH Workflow SS Iron [Mass/Vol] 39 ug/dL Low 50 - 170 mcg/dL ADM SS Iron binding capacity [Mass/Vol] 228 mcg/dL Low 250 - 500 mcg/dL ADM SS Iron saturation [Mass fraction] 17 % Invalid Interpretation Code ADM SS LDH Lactate to pyruvate reaction [Catalytic activity/Vol] 156 1 Normal 120 - 246 U/L ADM SS Lymphocytes (Bld) [#/Vol] 0.9 103/mcL Normal 0.9 - 4.3 10^3/mcL Workflow SS Lymphocytes/100 WBC (Bld) 21.2 % Normal 20.0 - 40.0 % Workflow SS MCH (RBC) [Entitic mass] 30.3 pg Normal 27.0 - 33.0 pg Workflow SS MCHC 32.9 G/dL Normal 32.0 - 36.0 G/dL Workflow SS MCV (RBC) [Entitic vol] 91.9 fL Normal 80.0 - 99.0 fL Workflow SS Monocytes (Bld) [#/Vol] 0.4 103/mcL Normal 0.1 - 1.4 10^3/mcL Workflow SS Monocytes/100 WBC (Bld) 9.4 % Normal 2.0 - 13.0 % Workflow SS Neutrophils (Bld) [#/Vol] 2.6 103/mcL Normal 2.3 - 8.1 10^3/mcL Workflow SS Neutrophils/100 WBC (Bld) 64.5 % Normal 50.0 - 75.0 % Workflow SS Platelet mean volume (Bld) [Entitic vol] 9.0 fL Normal 6.6 - 10.5 fL Workflow SS Platelets (Bld) [#/Vol] 139 103/mcL Low 150 - 450 10^3/mcL Workflow SS Potassium [Moles/Vol] 4.3 mmol/L Normal 3.5 - 5.0 mEq/L ADM SS Protein [Mass/Vol] 4.9 G/dL Low 5.7 - 8.2 G/dL ADM SS RBC (Bld) [#/Vol] 2.98 106/mcL Low 4.10 - 5.3 0 10^6/mcL AH Workflow SS Sodium [Moles/Vol] 137 mmol/L Normal 136 - 145 mEq/L AH ADM SS TSH Qn 3.834 mIU/mL Normal 0.550 - 4.780 mIU/mL AH ADM SS Urea nitrogen [Mass/Vol] 26.0 mg/dL High 8.0 - 22.0 mg/dL AH ADM SS Urea nitrogen/Creatinine [Mass ratio] 6.3 ratio Low 10.0 - 22.0 ratio AH ADM SS WBC (Bld) [#/Vol] 4.1 103/mcL Low 4.5 - 10.8 10^3/mcL Workflow SS LDHon 07-06-2024 LDH 156 U/L Normal 120-246 [facility] MAIN Comment on above: Performed By: #### C BC, GFR, AGA, ANEU, TSH, CMP, LD, ADIFF #### [address] [address] TSHon 07-06-2024 TSH 3.834 mIU/mL Normal 0.550-4.780 [facility] MAIN Comment on above: Performed By: #### C BC, GFR, AGA, ANEU, TSH, CMP, LD, ADIFF #### [address] [address] Anion gap [Moles/Vol]Ordered By: Osmani Morgan on 07-05-2024 Anion gap in Serum or Plasma 12 09-09 [facility] Anion gap in Serum or Plasma Ordered By: Osmani Morgan on 07-05-2024 Anion gap [Moles/Vol] 12 mmol/L 09-09 [facility] BUN/creatinine ratioOrdered By: Osmani Morgan on 07-05-2024 Urea nitrogen/Creatinine [Mass ratio] 7.5 mg/mg Low 02-14 [facility] BUN/creatinine ratio 7.5 RATIO Low 02-14 [facility] Calcium [Mass/Vol]Ordered By : Osmani Morgan on 07-05-2024 Serum or plasma calcium measurement (mass/volume) 9.0 mg/dL 7.6-11.0 [facility] Carbon dioxide, total [Moles /volume] in Central venous bloodOrdered By: Osmani Morgan on 07-05-2024 CO2 [Moles/Vol] 25.6 mmol/L 21.0-32.0 [facility] Carbon dioxide, total [Moles/volume] in Central venous blood 25.6 mmol/L 21.0-32.0 [facility] Chloride assayOrdered By: Fatoumata Morgan on 07-05-2024 Chloride [Moles/Vol] 101 mmol/L 98-108 [facility] Chloride assay 101 mmol/L 98-108 [facility] Creatinine [Mass/Vol]Ordered By: Osmani Morgan on 07-05-2024 Serum creatinine measurement (mass/volume) 6.44 mg/dL High 0.70-1.20 [facility] Erythrocyte distribution wid th (RBC) [Ratio]Ordered By: Osmani Morgan on 07-05-2024 Erythrocyte distribution width ratio 16.6 % High 11.6-14.6 [facility] Erythrocyte distribution width standard deviation 58.3 fl High 35.1-43.9 [facility] Erythrocyte distribution wid th ratioOrdered By: Osmani Morgan on 07-05-2024 Erythrocyte distribution width (RBC) [Ratio] 16.6 % High 11.6-14.6 [facility] Erythrocyte distribution wid th standard deviationOrdered By: Osmani Morgan on 07-05-2024 Erythrocyte distribution width (RBC) [Ratio] 58.3 fl High 35.1-43.9 [facility] GFR/1.73 sq M.predicted lia g non-blacks MDRD (S/P/Bld) [Vol rate/Area]Ordered By: Osmani Morgan on 07-05-2024 Glomerular filtration rate (GFR) estimation/1.73 sq m using serum, plasma, or whole b 6 Low >60 [facility] Glomerular filtration rate ( GFR) estimation/1.73 sq m using serum, plasma, or whole bOrdered By: Osmani Morgan on 07-05-2024 GFR/1.73 sq M.predicted among non-blacks MDRD (S/P/Bld) [Vol rate/Area] 6 mL/min/{1.73_m2} Low >60 [facility] Comment on above: mL/min/1.73m2 CKD-EP I Creatinine Equation (2020) Glucose [Mass/Vol]Ordered By : Osmani Morgan on 07-05-2024 Serum glucose measurement (mass/volume) 135 mg/dL High 70-99 [facility] Hematocrit Auto (Bld) [Volum e fraction]Ordered By: Osmani Morgan on 07-05-2024 Hematocrit (Bld) [Volume fraction] 24.9 % Low 37-47 [facility] Automated blood hematocrit (percentage) 24.9 % Low 37-47 [facility] Hemoglobin measurementOrdere d By: Osmani Morgan on 07-05-2024 Hemoglobin (Bld) [Mass/Vol] 7.6 g/dL Low 12.0-15.0 [facility] Hemoglobin measurement 7.6 g/dL Low 12.0-15.0 [facility] MCV (RBC) [Entitic vol]Order ed By: Osmani Morgan on 07-05-2024 MCV (mean corpuscular volume) determination 97.6 fL 81-99 [facility] MCV (mean corpuscular volume ) determinationOrdered By: Osmani Morgan on 07-05-2024 MCV (RBC) [Entitic vol] 97.6 fL 81-99 [facility] Mean corpuscular hemoglobin (MCH) determinationOrdered By: Osmani Morgan on 07-05-2024 MCH (RBC) [Entitic mass] 29.8 pg 27.0-32.0 [facility] Mean corpuscular hemoglobin (MCH) determination 29.8 pg 27.0-32.0 [facility] Mean corpuscular hemoglobin concentration (MCHC) determinationOrdered By: Osmani Morgan on 07-05-2024 MCHC (RBC) [Mass/Vol] 30.5 g/dL Low 32-36 [facility] Mean corpuscular hemoglobin concentration (MCHC) determination 30.5 g/dL Low 32-36 [facility] Mean platelet volume determi nationOrdered By: Osmani Morgan on 07-05-2024 Platelet mean volume (Bld) [Entitic vol] 11.3 fL 6.2-12.0 [facility] Mean platelet volume determination 11.3 fl 6.2-12.0 [facility] Platelet countOrdered By: Fatoumata Morgan on 07-05-2024 Platelets (Bld) [#/Vol] 140 10*3/uL Low 150-450 [facility] Platelet count 140 K/mm3 Low 150-450 [facility] Potassium (Unsp spec) [Mass/ Vol]Ordered By: Osmani Morgan on 07-05-2024 Potassium measurement (mass/volume) 5.6 mmol/L High 3.3-5.1 [facility] Potassium measurement (mass/ volume)Ordered By: Osmani Morgan on 07-05-2024 Potassium (Unsp spec) [Mass/Vol] 5.6 mmol/L High 3.3-5.1 [facility] RBC Auto (Bld) [#/Vol]Ordere d By: Osmani Morgan on 07-05-2024 RBC (Bld) [#/Vol] 2.55 10*6/uL Low 4.2-5.4 [facility] Automated blood erythrocyte count 2.55 M/mm3 Low 4.2-5.4 [facility] Serum creatinine measurement (mass/volume)Ordered By: Osmani Morgan on 07-05-2024 Creatinine [Mass/Vol] 6.44 mg/dL High 0.70-1.20 [facility] Serum glucose measurement (m ass/volume)Ordered By: Osmani Morgan on 07-05-2024 Glucose [Mass/Vol] 135 mg/dL High 70-99 [facility] Serum or plasma calcium sandra urement (mass/volume)Ordered By: Osmani Morgan on 07-05-2024 Calcium [Mass/Vol] 9.0 mg/dL 7.6-11.0 [facility] Serum or plasma urea nitroge n measurement (mass/volume)Ordered By: Osmani Morgan on 07-05-2024 Urea nitrogen [Mass/Vol] 48 mg/dL High 4-19 [facility] Sodium levelOrdered By: Patrick Morgan on 07-05-2024 Sodium [Moles/Vol] 139 mmol/L 133-145 [facility] Sodium level 139 mmol/L 133-145 [facility] Urea nitrogen [Mass/Vol]Orde red By: Osmani Morgan on 07-05-2024 Serum or plasma urea nitrogen measurement (mass/volume) 48 mg/dL High 4-19 [facility] White blood cell (WBC) count Ordered By: Osmani Morgan on 07-05-2024 WBC (Bld) [#/Vol] 4.9 10*3/uL 4.4-11.0 [facility] White blood cell (WBC) count 4.9 K/mm3 4.4-11.0 [facility] Absolute lymphocyte countOrd ered By: Osmani Morgan on 07-01-2024 Lymphocytes Auto (Unsp spec) [#/Vol] 1.26 10*3/uL 0.83-4.51 [facility] Absolute neutrophil countOrd ered By: Osmani Morgan on 07-01-2024 Neutrophils (Bld) [#/Vol] 3.0 10*3/uL 2.0-7.7 [facility] Absolute neutrophil count 3.0 X10^3/uL 2.0-7.7 [facility] Automated lymphocyte count a s percentage of total leukocytesOrdered By: Osmani Morgan on 07-01-2024 Lymphocytes/100 WBC Auto (Unsp spec) 24.9 % 19-41 [facility] Basophil percentageOrdered B y: Osmani Morgan on 07-01-2024 Basophils/100 WBC (Bld) 0.6 % 0-1 [facility] Basophil percentage 0.6 % 0-1 [facility] Blood polychromasia detectio n by light microscopyOrdered By: Osmani Morgan on 07-01-2024 Polychromasia LM Ql (Bld) RARE [facility] Eosinophil percentageOrdered By: Osmani Morgan on 07-01-2024 Eosinophils/100 WBC (Bld) 4.1 % 0-5 [facility] Eosinophil percentage 4.1 % 0-5 [facility] [facility] Erythrocyte distribution wid th (RBC) [Ratio]Ordered By: Osmani Morgan on 07-01-2024 Erythrocyte distribution width ratio 16.1 % High 11.6-14.6 [facility] Erythrocyte distribution width standard deviation 56.0 fl High 35.1-43.9 [facility] Erythrocyte distribution wid th ratioOrdered By: Osmani Morgan on 07-01-2024 Erythrocyte distribution width (RBC) [Ratio] 16.1 % High 11.6-14.6 [facility] Erythrocyte distribution wid th standard deviationOrdered By: Osmani Morgan on 07-01-2024 Erythrocyte distribution width (RBC) [Ratio] 56.0 fl High 35.1-43.9 [facility] Hematocrit Auto (Bld) [Volum e fraction]Ordered By: Osmani Morgan on 07-01-2024 Hematocrit (Bld) [Volume fraction] 27.2 % Low 37-47 [facility] Automated blood hematocrit (percentage) 27.2 % Low 37-47 [facility] Hemoglobin measurementOrdere d By: Osmani Morgan on 07-01-2024 Hemoglobin (Bld) [Mass/Vol] 8.5 g/dL Low 12.0-15.0 [facility] Hemoglobin measurement 8.5 g/dL Low 12.0-15.0 [facility] Immature granulocytes/100 WB C Auto (Bld)Ordered By: Osmani Morgan on 07-01-2024 Immature granulocytes/100 WBC (Bld) 2.600 % High 0.0-0.9 [facility] Comment on above: IG% - Immature Granu locytes (promyelocytes, myelocytes and metamyelocytes) > 1% indicates that a LEFT SHIFT is Present. Automated immature granulocyte percentage 2.600 % High 0.0-0.9 [facility] Lymphocytes Auto (Unsp spec) [#/Vol]Ordered By: Osmani Morgan on 07-01-2024 Absolute lymphocyte count 1.26 X10^3/uL 0.83-4.51 [facility] Lymphocytes/100 WBC Auto (Un sp spec)Ordered By: Osmani Morgan on 07-01-2024 Automated lymphocyte count as percentage of total leukocytes 24.9 % 19-41 [facility] MCV (RBC) [Entitic vol]Order ed By: Osmani Morgan on 07-01-2024 MCV (mean corpuscular volume) determination 95.4 fL 81-99 [facility] MCV (mean corpuscular volume ) determinationOrdered By: Osmani Morgan on 07-01-2024 MCV (RBC) [Entitic vol] 95.4 fL 81-[address] [facility] Mean corpuscular hemoglobin (MCH) determinationOrdered By: Osmani Morgan on 07-01-2024 MCH (RBC) [Entitic mass] 29.8 pg 27.0-32.0 [facility] Mean corpuscular hemoglobin (MCH) determination 29.8 pg 27.0-32.0 [facility] Mean corpuscular hemoglobin concentration (MCHC) determinationOrdered By: Osmani Morgan on 07-01-2024 MCHC (RBC) [Mass/Vol] 31.3 g/dL Low 32-36 [facility] Mean corpuscular hemoglobin concentration (MCHC) determination 31.3 g/dL Low 32-36 [facility] Mean platelet volume determi nationOrdered By: Osmani Morgan on 07-01-2024 Platelet mean volume (Bld) [Entitic vol] 12.7 fL High 6.2-12.0 [facility] Mean platelet volume determination 12.7 fl High 6.2-12.0 [facility] Monocyte percentageOrdered B y: Osmani Morgan on 07-01-2024 Monocytes/100 WBC (Bld) 9.7 % 0-[address] [facility] Monocyte percentage 9.7 % 0-10 [facility] Neutrophil percentageOrdered By: Osmani Morgan on 07-01-2024 Neutrophils/100 WBC (Bld) 58.1 % 47-70 [facility] Neutrophil percentage 58.1 % 47-70 [facility] Nucleated red blood cell per centageOrdered By: Osmani Morgan on 07-01-2024 Nucleated RBC/100 WBC (Bld) [Ratio] 1.2 % 0-5 [facility] Nucleated red blood cell percentage 1.2 % 0-5 [facility] Platelet countOrdered By: Fatoumata Morgan on 07-01-2024 Platelet count See comment [id number] [facility] Comment on above: Please note: For thi s sample, a platelet estimate is provided rather than a platelet count due to platelet clumping. Other parameters associated with this sample are not affected by platelet clumping. If a more accurate platelet count is required, a redraw of the patient will be necessary. Platelet count See comment 150-450 [facility] Platelet estimateOrdered By: Osmani Morgan on 07-01-2024 Platelets LM Ql (Bld) SLT DEC ADEQ [facility] Platelets LM Ql (Bld)Ordered By: Osmani Morgan on 07-01-2024 Platelet estimate SLT DEC [facility] Polychromasia LM Ql (Bld)Ord ered By: Osmani Morgan on 07-01-2024 Blood polychromasia detection by light microscopy RARE [facility] RBC Auto (Bld) [#/Vol]Ordere d By: Osmani Morgan on 07-01-2024 RBC (Bld) [#/Vol] 2.85 10*6/uL Low 4.2-5.4 [facility] Automated blood erythrocyte count 2.85 M/mm3 Low 4.2-5.4 [facility] White blood cell (WBC) count Ordered By: Osmani Morgan on 07-01-2024 WBC (Bld) [#/Vol] 5.1 10*3/uL 4.4-11.0 [facility] White blood cell (WBC) count 5.1 K/mm3 4.4-11.0 [facility] BRCon 06-30-2024 RC Normal Neg [facility] Comment on above: Result Comment: [id number] OP RC TRANSFUSED 06/30/24 0916 Performed By: #### B RICARDO MEREDITH ####[facility] [id number] [place], [address] Type AND Screenon 06-30-2024 ABO and Rh group Nom (Bld) Blood group O Rh(D) positive Normal [facility] Comment on above: Order Comment: [id number] Performed By: #### B RC, BTS ####[facility] [id number] [place], [address] MR/BMSAngie 06-29-2024 MR/BMS.MAYUR Normal [facility] Anion gap [Moles/Vol]Ordered By: Osmani Morgan on 06-28-2024 Serum or plasma anion gap determination (moles/volume) 12 5-15 [facility] BUN/creatinine ratioOrdered By: Osmani Morgan on 06-28-2024 Urea nitrogen/Creatinine [Mass ratio] 9.0 mg/mg Low 10-20 [facility] BUN/creatinine ratio 9.0 RATIO Low 10-20 [facility] Calcium [Mass/Vol]Ordered By : Osmani Morgan on 06-28-2024 Serum or plasma calcium measurement (mass/volume) 9.0 mg/dL 7.6-11.0 [facility] Carbon dioxide measurementOr dered By: Osmani Morgan on 06-28-2024 CO2 [Moles/Vol] 24.5 mmol/L 22.0-29.0 [facility] Carbon dioxide measurement 24.5 mmol/L 22.0-29.0 [facility] Chloride measurementOrdered By: Osmani Morgan on 06-28-2024 Chloride [Moles/Vol] 102 mmol/L 96-108 [facility] Chloride measurement 102 mmol/L 96-108 [facility] Creatinine [Mass/Vol]Ordered By: Osmani Morgan on 06-28-2024 Serum creatinine measurement (mass/volume) 6.16 mg/dL High 0.70-1.20 [facility] Erythrocyte distribution wid th (RBC) [Ratio]Ordered By: Osmani Morgan on 06-28-2024 Erythrocyte distribution width ratio 16.5 % High 11.6-14.6 [facility] Erythrocyte distribution width standard deviation 58.8 fl High 35.1-43.9 [facility] Erythrocyte distribution wid th ratioOrdered By: Osmani Morgan on 06-28-2024 Erythrocyte distribution width (RBC) [Ratio] 16.5 % High 11.6-14.6 [facility] Erythrocyte distribution wid th standard deviationOrdered By: Osmani Morgan on 06-28-2024 Erythrocyte distribution width (RBC) [Ratio] 58.8 fl High 35.1-43.9 [facility] GFR/1.73 sq M.predicted lia g non-blacks MDRD (S/P/Bld) [Vol rate/Area]Ordered By: Osmani Morgan on 06-28-2024 Glomerular filtration rate (GFR) estimation/1.73 sq m using serum, plasma, or whole b 6 Low >60 [facility] Glomerular filtration rate ( GFR) estimation/1.73 sq m using serum, plasma, or whole bOrdered By: Osmani Morgan on 06-28-2024 GFR/1.73 sq M.predicted among non-blacks MDRD (S/P/Bld) [Vol rate/Area] 6 mL/min/{1.73_m2} Low >60 [facility] Comment on above: mL/min/1.73m2 CKD-EP I Creatinine Equation (2020) Glucose [Mass/Vol]Ordered By : Osmani Morgan on 06-28-2024 Serum glucose measurement (mass/volume) 95 mg/dL 70-99 [facility] Hematocrit Auto (Bld) [Volum e fraction]Ordered By: Osmani Morgan on 06-28-2024 Hematocrit (Bld) [Volume fraction] 22.0 % Low 37-47 [facility] Automated blood hematocrit (percentage) 22.0 % Low 37-47 [facility] Hemoglobin measurementOrdere d By: Osmani Morgan on 06-28-2024 Hemoglobin (Bld) [Mass/Vol] 6.8 g/dL Low 12.0-15.0 [facility] Hemoglobin measurement 6.8 g/dL Low 12.0-15.0 [facility] MCV (RBC) [Entitic vol]Order ed By: Osmani Morgna on 06-28-2024 MCV (mean corpuscular volume) determination 96.9 fL 81-99 [facility] MCV (mean corpuscular volume ) determinationOrdered By: Osmani Morgan on 06-28-2024 MCV (RBC) [Entitic vol] 96.9 fL 81-99 [facility] Mean corpuscular hemoglobin (MCH) determinationOrdered By: Osmani Morgan on 06-28-2024 MCH (RBC) [Entitic mass] 30.0 pg 27.0-32.0 [facility] Mean corpuscular hemoglobin (MCH) determination 30.0 pg 27.0-32.0 [facility] Mean corpuscular hemoglobin concentration (MCHC) determinationOrdered By: Osmani Morgan on 06-28-2024 MCHC (RBC) [Mass/Vol] 30.9 g/dL Low 32-36 [facility] Mean corpuscular hemoglobin concentration (MCHC) determination 30.9 g/dL Low 32-36 [facility] Mean platelet volume determi nationOrdered By: Osmani Morgan on 06-28-2024 Platelet mean volume (Bld) [Entitic vol] 11.7 fL 6.2-12.0 [facility] Mean platelet volume determination 11.7 fl 6.2-12.0 [facility] Platelet countOrdered By: Fatoumata Morgan on 06-28-2024 Platelets (Bld) [#/Vol] 110 10*3/uL Low 150-450 [facility] Platelet count 110 K/mm3 Low 150-450 [facility] Potassium [Moles/Vol]Ordered By: Osmani Morgan on 06-28-2024 Serum or plasma potassium measurement 5.3 mmol/L High 3.3-5.1 [facility] RBC Auto (Bld) [#/Vol]Ordere d By: Osmani Morgan on 06-28-2024 RBC (Bld) [#/Vol] 2.27 10*6/uL Low 4.2-5.4 [facility] Automated blood erythrocyte count 2.27 M/mm3 Low 4.2-5.4 [facility] Serum creatinine measurement (mass/volume)Ordered By: Osmani Morgan on 06-28-2024 Creatinine [Mass/Vol] 6.16 mg/dL High 0.70-1.20 [facility] Serum glucose measurement (m ass/volume)Ordered By: Osmani Morgan on 06-28-2024 Glucose [Mass/Vol] 95 mg/dL 70-99 [facility] Serum or plasma anion gap de termination (moles/volume)Ordered By: Osmani Morgan on 06-28-2024 Anion gap [Moles/Vol] 12 mmol/L 5-15 [facility] Serum or plasma calcium sandra urement (mass/volume)Ordered By: Osmani Morgan on 06-28-2024 Calcium [Mass/Vol] 9.0 mg/dL 7.6-11.0 [facility] Serum or plasma potassium me asurementOrdered By: Osmani Morgan on 06-28-2024 Potassium [Moles/Vol] 5.3 mmol/L High 3.3-5.1 [facility] Serum or plasma sodium measu rement (moles/volume)Ordered By: Osmani Morgan on 06-28-2024 Sodium [Moles/Vol] 139 mmol/L 133-145 [facility] Serum or plasma urea nitroge n measurement (mass/volume)Ordered By: Osmani Morgan on 06-28-2024 Urea nitrogen [Mass/Vol] 55 mg/dL High 08-14 [facility] Sodium [Moles/Vol]Ordered By : Osmani Morgan on 06-28-2024 Serum or plasma sodium measurement (moles/volume) 139 mmol/L 133-145 [facility] Urea nitrogen [Mass/Vol]Orde red By: Osmani Morgan on 06-28-2024 Serum or plasma urea nitrogen measurement (mass/volume) 55 mg/dL High 4-19 [facility] White blood cell (WBC) count Ordered By: Osmani Morgan on 06-28-2024 WBC (Bld) [#/Vol] 4.8 10*3/uL 4.4-11.0 [facility] White blood cell (WBC) count 4.8 K/mm3 4.4-11.0 [facility] Absolute lymphocyte countOrd ered By: Osmani Morgan on 06-23-2024 Lymphocytes Auto (Unsp spec) [#/Vol] 1.18 10*3/uL 0.83-4.51 [facility] Absolute neutrophil countOrd ered By: Patrickmerconstantino Morgan on 06-23-2024 Neutrophils (Bld) [#/Vol] 2.9 10*3/uL 2.0-7.7 [facility] Absolute neutrophil count 2.9 X10^3/uL 2.0-7.7 [facility] Automated lymphocyte count a s percentage of total leukocytesOrdered By: Osmani Morgan on 06-23-2024 Lymphocytes/100 WBC Auto (Unsp spec) 24.5 % 19-41 [facility] Basophil percentageOrdered B y: Osmani Morgan on 06-23-2024 Basophils/100 WBC (Bld) 0.4 % 0-[address] [facility] Basophil [facility] 0.4 % 0-[facility] Eosinophil percentageOrdered By: Osmani Morgan on 06-23-2024 Eosinophils/100 WBC (Bld) 4.2 % 0-5 [facility] Eosinophil percentage 4.2 % 0-5 [facility] Erythrocyte distribution wid th (RBC) [Ratio]Ordered By: Osmani Morgan on 06-23-2024 Erythrocyte distribution width ratio 17.2 % High 11.6-14.6 [facility] Erythrocyte distribution width standard deviation 60.6 fl High 35.1-43.9 [facility] Erythrocyte distribution wid th ratioOrdered By: Osmani Morgan on 06-23-2024 Erythrocyte distribution width (RBC) [Ratio] 17.2 % High 11.6-14.6 [facility] Erythrocyte distribution wid th standard deviationOrdered By: Osmani Morgan on 06-23-2024 Erythrocyte distribution width (RBC) [Ratio] 60.6 fl High 35.1-43.9 [facility] Hematocrit Auto (Bld) [Volum e fraction]Ordered By: Osmani Morgan on 06-23-2024 Hematocrit (Bld) [Volume fraction] 24.8 % Low 37-47 [facility] Automated blood hematocrit (percentage) 24.8 % Low 37-47 [facility] Hemoglobin measurementOrdere d By: Osmani Morgan on 06-23-2024 Hemoglobin (Bld) [Mass/Vol] 7.8 g/dL Low 12.0-15.0 [facility] Hemoglobin measurement 7.8 g/dL Low 12.0-15.0 [facility] Immature granulocytes/100 WB C Auto (Bld)Ordered By: Osmani Morgan on 06-23-2024 Immature granulocytes/100 WBC (Bld) 1.500 % High 0.0-0.9 [facility] Comment on above: IG% - Immature Granu locytes (promyelocytes, myelocytes and metamyelocytes) > 1% indicates that a LEFT SHIFT is Present. Automated immature granulocyte percentage 1.500 % High 0.0-0.9 [facility] Lymphocytes Auto (Unsp spec) [#/Vol]Ordered By: Osmani Morgan on 06-23-2024 Absolute lymphocyte count 1.18 X10^3/uL 0.83-4.51 [facility] Lymphocytes/100 WBC Auto (Un sp spec)Ordered By: Osmani Morgan on 06-23-2024 Automated lymphocyte count as percentage of total leukocytes 24.5 % 19-41 [facility] MCV (RBC) [Entitic vol]Order ed By: Osmani Morgan on 06-23-2024 MCV (mean corpuscular volume) determination 96.5 fL 81-99 [facility] MCV (mean corpuscular volume ) determinationOrdered By: Osmani Morgan on 06-23-2024 MCV (RBC) [Entitic vol] 96.5 fL 81-[address] [facility] Mean corpuscular hemoglobin (MCH) determinationOrdered By: Osmani Morgan on 06-23-2024 MCH (RBC) [Entitic mass] 30.4 pg 27.0-32.0 [facility] Mean corpuscular hemoglobin (MCH) determination 30.4 pg 27.0-32.0 [facility] Mean corpuscular hemoglobin concentration (MCHC) determinationOrdered By: Osmani Morgan on 06-23-2024 MCHC (RBC) [Mass/Vol] 31.5 g/dL Low 32-36 [facility] Mean corpuscular hemoglobin concentration (MCHC) determination 31.5 g/dL Low 32-36 [facility] Mean platelet volume determi nationOrdered By: Osmani Morgan on 06-23-2024 Platelet mean volume (Bld) [Entitic vol] 11.8 fL 6.2-12.0 [facility] Mean platelet volume determination 11.8 fl 6.2-12.0 [facility] Monocyte percentageOrdered B y: Osmani Morgan on 06-23-2024 Monocytes/100 WBC (Bld) 9.8 % 0-[address] [facility] Monocyte percentage 9.8 % 0-10 [facility] Neutrophil percentageOrdered By: Osmani Morgan on 06-23-2024 Neutrophils/100 WBC (Bld) 59.6 % 47-70 [facility] Neutrophil percentage 59.6 % 47-70 [facility] Nucleated red blood cell per centageOrdered By: Osmani Morgan on 06-23-2024 Nucleated RBC/100 WBC (Bld) [Ratio] 0 % 0-5 [facility] Nucleated red blood cell percentage 0 % 0-5 [facility] Platelet countOrdered By: Fatoumata Morgan on 06-23-2024 Platelets (Bld) [#/Vol] 120 10*3/uL Low 150-450 [facility] Platelet count 120 K/mm3 Low 150-450 [facility] RBC Auto (Bld) [#/Vol]Ordere d By: Osmani Morgan on 06-23-2024 RBC (Bld) [#/Vol] 2.57 10*6/uL Low 4.2-5.4 [facility] Automated blood erythrocyte count 2.57 M/mm3 Low 4.2-5.4 [facility] White blood cell (WBC) count Ordered By: Osmani Morgan on 06-23-2024 WBC (Bld) [#/Vol] 4.8 10*3/uL 4.4-11.0 [facility] White blood cell (WBC) count 4.8 K/mm3 4.4-11.0 [facility] Blood urea nitrogen (BUN)/cr eatinine ratioOrdered By: Osmani Morgan on 06-21-2024 Urea nitrogen/Creatinine [Mass ratio] 7.2 mg/mg Low 10-20 [facility] Blood urea nitrogen (BUN)/creatinine ratio 7.2 RATIO Low 10-20 [facility] Calcium [Mass/Vol]Ordered By : Osmani Morgan on 06-21-2024 Serum or plasma calcium measurement (mass/volume) 9.1 mg/dL 8.5-10.1 [facility] Carbon dioxide measurementOr dered By: Osmani Morgan on 06-21-2024 CO2 [Moles/Vol] 27.0 mmol/L 21.0-32.0 [facility] Carbon dioxide measurement 27.0 mmol/L 21.0-32.0 [facility] Chloride measurementOrdered By: Osmani Morgan on 06-21-2024 Chloride [Moles/Vol] 107 mmol/L 98-107 [facility] Chloride measurement 107 mmol/L 98-107 [facility] Creatinine [Mass/Vol]Ordered By: Osmani Morgan on 06-21-2024 Serum or plasma creatinine measurement (mass/volume) 6.21 mg/dL High 0.55-1.02 [facility] Erythrocyte distribution wid th (RBC) [Ratio]Ordered By: Osmani Morgan on 06-21-2024 Erythrocyte distribution width ratio 17.5 % High 11.6-14.6 [facility] Erythrocyte distribution width standard deviation 60.3 fl High 35.1-43.9 [facility] Erythrocyte distribution wid th ratioOrdered By: Osmani Morgan on 06-21-2024 Erythrocyte distribution width (RBC) [Ratio] 17.5 % High 11.6-14.6 [facility] Erythrocyte distribution wid th standard deviationOrdered By: Osmani Morgan on 06-21-2024 Erythrocyte distribution width (RBC) [Ratio] 60.3 fl High 35.1-43.9 [facility] Estimated glomerular filtrat ion rate (GFR) AmericanOrdered By: Osmani Morgan on 06-21-2024 Estimated glomerular filtration rate (GFR) 8 mL/min Low >60 [facility] Glomerular filtration rate ( GFR) estimationOrdered By: Osmani Morgan on 06-21-2024 GFR/1.73 sq M.predicted among non-blacks MDRD (S/P/Bld) [Vol rate/Area] 7 mL/min/{1.73_m2} Low >60 [facility] Comment on above: Non- GFR Calc Glomerular filtration rate (GFR) estimation 7 mL/min Low >60 [facility] Glucose measurementOrdered B y: Osmani Morgan on 06-21-2024 Glucose [Mass/Vol] 94 mg/dL 74-106 [facility] [place] 94 mg/dL 74-106 [facility] [place]ematocrit Auto (Bld) [Volum e fraction]Ordered By: Osmani Morgan on 06-21-2024 Hematocrit (Bld) [Volume fraction] 24.1 % Low 37-47 [facility] Automated blood hematocrit (percentage) 24.1 % Low 37-47 [facility] Hemoglobin measurementOrdere d By: Osmani Morgan on 06-21-2024 Hemoglobin (Bld) [Mass/Vol] 7.3 g/dL Low 12.0-15.0 [facility] Hemoglobin measurement 7.3 g/dL Low 12.0-15.0 [facility] MCV (RBC) [Entitic vol]Order ed By: Osmani Morgan on 06-21-2024 MCV (mean corpuscular volume) determination 97.6 fL 81-99 [facility] MCV (mean corpuscular volume ) determinationOrdered By: Osmani Morgan on 06-21-2024 MCV (RBC) [Entitic vol] 97.6 fL 81-99 [facility] Mean corpuscular hemoglobin (MCH) determinationOrdered By: Osmani Morgan on 06-21-2024 MCH (RBC) [Entitic mass] 29.6 pg 27.0-32.0 [facility] Mean corpuscular hemoglobin (MCH) determination 29.6 pg 27.0-32.0 [facility] Mean corpuscular hemoglobin concentration (MCHC) determinationOrdered By: Osmani Morgan on 06-21-2024 MCHC (RBC) [Mass/Vol] 30.3 g/dL Low 32-36 [facility] Mean corpuscular hemoglobin concentration (MCHC) determination 30.3 g/dL Low 32-36 [facility] Mean platelet volume determi nationOrdered By: Osmani Morgan on 06-21-2024 Platelet mean volume (Bld) [Entitic vol] 11.3 fL 6.2-12.0 [facility] Mean platelet volume determination 11.3 fl 6.2-12.0 [facility] Platelet countOrdered By: Fatoumata Morgan on 06-21-2024 Platelets (Bld) [#/Vol] 128 10*3/uL Low 150-450 [facility] Platelet count 128 K/mm3 Low 150-450 [facility] Potassium measurementOrdered By: Osmani Morgan on 06-21-2024 Potassium [Moles/Vol] 5.2 mmol/L High 3.5-5.1 [facility] Potassium measurement 5.2 mmol/L High 3.5-5.1 [facility] RBC Auto (Bld) [#/Vol]Ordere d By: Osmani Morgan on 06-21-2024 RBC (Bld) [#/Vol] 2.47 10*6/uL Low 4.2-5.4 [facility] Automated blood erythrocyte count 2.47 M/mm3 Low 4.2-5.4 [facility] Serum anion gap measurementO rdered By: Osmani Morgan on 06-21-2024 Anion gap [Moles/Vol] 8 mmol/L 5-15 [facility] Serum anion gap measurement 8 5-15 [facility] Serum or plasma calcium sandra urement (mass/volume)Ordered By: Osmani Morgan on 06-21-2024 Calcium [Mass/Vol] 9.1 mg/dL 8.5-10.1 [facility] Serum or plasma creatinine m easurement (mass/volume)Ordered By: Osmani Morgan on 06-21-2024 Creatinine [Mass/Vol] 6.21 mg/dL High 0.55-1.02 [facility] Comment on above: The validity of the calculated GFR & GFRAA in patients over 70 years has not been determined. Clinical correlation is essential. Serum or plasma urea nitroge n measurement (mass/volume)Ordered By: Osmani Morgan on 06-21-2024 Urea nitrogen [Mass/Vol] 45 mg/dL High 11-12 [facility] Sodium levelOrdered By: Patrick chela Cathy on 06-21-2024 Sodium [Moles/Vol] 142 mmol/L 136-145 [facility] Sodium level 142 mmol/L 136-145 [facility] Urea nitrogen [Mass/Vol]Orde red By: Osmani Morgan on 06-21-2024 Serum or plasma urea nitrogen measurement (mass/volume) 45 mg/dL High 11-12 [facility] White blood cell (WBC) count Ordered By: Osmani Morgan on 06-21-2024 WBC (Bld) [#/Vol] 5.1 10*3/uL 4.4-11.0 [facility] White blood cell (WBC) count 5.1 K/mm3 4.4-11.0 [facility] Absolute lymphocyte countOrd ered By: Osmani Morgan on 06-18-2024 Lymphocytes Auto (Unsp spec) [#/Vol] 1.48 10*3/uL 0.83-4.51 [facility] Absolute neutrophil countOrd ered By: Osmani Morgan on 06-18-2024 Neutrophils (Bld) [#/Vol] 2.9 10*3/uL 2.0-7.7 [facility] Absolute neutrophil count 2.9 X10^3/uL 2.0-7.7 [facility] Automated lymphocyte count a s percentage of total leukocytesOrdered By: Osmani Morgan on 06-18-2024 Lymphocytes/100 WBC Auto (Unsp spec) 28.6 % 19-41 [facility] Basophil percentageOrdered B y: Osmani Morgan on 06-18-2024 Basophils/100 WBC (Bld) 0.6 % 0-[address] [facility] Basophil percentage 0.6 % 0-5 [facility] Eosinophil percentageOrdered By: Osamni Morgan on 06-18-2024 Eosinophils/100 WBC (Bld) 4.1 % 0-5 [facility] Eosinophil percentage 4.1 % 0-5 [facility] Erythrocyte distribution wid th (RBC) [Ratio]Ordered By: Osmani Morgan on 06-18-2024 Erythrocyte distribution width ratio 16.7 % High 11.6-14.6 [facility] Erythrocyte distribution width standard deviation 57.4 fl High 35.1-43.9 [facility] Erythrocyte distribution wid th ratioOrdered By: Osmani Morgan on 06-18-2024 Erythrocyte distribution width (RBC) [Ratio] 16.7 % High 11.6-14.6 [facility] Erythrocyte distribution wid th standard deviationOrdered By: Osmani Morgan on 06-18-2024 Erythrocyte distribution width (RBC) [Ratio] 57.4 fl High 35.1-43.9 [facility] Hematocrit Auto (Bld) [Volum e fraction]Ordered By: Osmani Morgan on 06-18-2024 Hematocrit (Bld) [Volume fraction] 26.6 % Low 37-47 [facility] Automated blood hematocrit (percentage) 26.6 % Low 37-47 [facility] Hemoglobin measurementOrdere d By: Osmani Morgan on 06-18-2024 Hemoglobin (Bld) [Mass/Vol] 8.3 g/dL Low 12.0-15.0 [facility] Hemoglobin measurement 8.3 g/dL Low 12.0-15.0 [facility] Immature granulocytes/100 WB C Auto (Bld)Ordered By: Osmani Morgan on 06-18-2024 Immature granulocytes/100 WBC (Bld) 1.700 % High 0.0-0.9 [facility] Comment on above: IG% - Immature Granu locytes (promyelocytes, myelocytes and metamyelocytes) > 1% indicates that a LEFT SHIFT is Present. Automated immature granulocyte percentage 1.700 % High 0.0-0.9 [facility] Lymphocytes Auto (Unsp spec) [#/Vol]Ordered By: Osmani Morgan on 06-18-2024 Absolute lymphocyte count 1.48 X10^3/uL 0.83-4.51 [facility] Lymphocytes/100 WBC Auto (Un sp spec)Ordered By: Osmani Morgan on 06-18-2024 Automated lymphocyte count as percentage of total leukocytes 28.6 % 19-41 [facility] MCV (RBC) [Entitic vol]Order ed By: Osmani Morgan on 06-18-2024 MCV (mean corpuscular volume) determination 95.0 fL 81-99 [facility] MCV (mean corpuscular volume ) determinationOrdered By: Osmani Morgan on 06-18-2024 MCV (RBC) [Entitic vol] 95.0 fL 81-99 [facility] Mean corpuscular hemoglobin (MCH) determinationOrdered By: Osmani Morgan on 06-18-2024 MCH (RBC) [Entitic mass] 29.6 pg 27.0-32.0 [facility] Mean corpuscular hemoglobin (MCH) determination 29.6 pg 27.0-32.0 [facility] Mean corpuscular hemoglobin concentration (MCHC) determinationOrdered By: Osmani Morgan on 06-18-2024 MCHC (RBC) [Mass/Vol] 31.2 g/dL Low 32-36 [facility] Mean corpuscular hemoglobin concentration (MCHC) determination 31.2 g/dL Low 32-36 [facility] Mean platelet volume determi nationOrdered By: Osmani Morgan on 06-18-2024 Platelet mean volume (Bld) [Entitic vol] 11.6 fL 6.2-12.0 [facility] Mean platelet volume determination 11.6 fl 6.2-12.0 [facility] Monocyte percentageOrdered B y: Osmani Morgan on 06-18-2024 Monocytes/100 WBC (Bld) 10.0 % 0-10 [facility] Monocyte percentage 10.0 % 0-10 [facility] Neutrophil percentageOrdered By: Osmani Morgan on 06-18-2024 Neutrophils/100 WBC (Bld) 55.0 % 47-70 [facility] Neutrophil percentage 55.0 % 47-70 [facility] Nucleated red blood cell per centageOrdered By: Osmani Morgan on 06-18-2024 Nucleated RBC/100 WBC (Bld) [Ratio] 0.6 % 0-5 [facility] Platelet countOrdered By: Fatoumata Morgan on 06-18-2024 Platelets (Bld) [#/Vol] 122 10*3/uL Low 150-450 [facility] Platelet count 122 K/mm3 Low 150-450 [facility] RBC Auto (Bld) [#/Vol]Ordere d By: Osmani Morgan on 06-18-2024 RBC (Bld) [#/Vol] 2.80 10*6/uL Low 4.2-5.4 [facility] Automated blood erythrocyte count 2.80 M/mm3 Low 4.2-5.4 [facility] White blood cell (WBC) count Ordered By: Osmani Morgan on 06-18-2024 WBC (Bld) [#/Vol] 5.2 10*3/uL 4.4-11.0 [facility] White blood cell (WBC) count 5.2 K/mm3 4.4-11.0 [facility] .Auto Diffon 06-17-2024 Basophil, Absolute 0.0 10 3/mcL Normal 0.0-0.3 [facility] Comment on above: Performed By: #### L D, GFR, CBC, ANEU, ADIFF, HEPAC, CMP #### [address] [address] Basophils/100 WBC (Bld) 0.4 % Normal 0.0-2.5 [facility] Comment on above: Performed By: #### L D, GFR, CBC, ANEU, ADIFF, HEPAC, CMP #### [address] [address] Eosinophil, Absolute 0.2 10 3/mcL Normal 0.0-0.7 [facility] Comment on above: Performed By: #### L D, GFR, CBC, ANEU, ADIFF, HEPAC, CMP #### [address] [address] Eosinophils/100 WBC (Bld) 3.1 % Normal 0.0-6.0 [facility] Comment on above: Performed By: #### L D, GFR, CBC, ANEU, ADIFF, HEPAC, CMP #### [address] [address] Lymphocyte, Absolute 1.4 10 3/mcL Normal 0.9-4.3 [facility] Comment on above: Performed By: #### L D, GFR, CBC, ANEU, ADIFF, HEPAC, CMP #### [address] [address] Lymphocytes/100 WBC (Bld) 26.1 % Normal 20.0-40.0 [facility] Comment on above: Performed By: #### L D, GFR, CBC, ANEU, ADIFF, HEPAC, CMP #### [address] [address] Monocyte, Absolute 0.5 10 3/mcL Normal 0.1-1.4 [facility] Comment on above: Performed By: #### L D, GFR, CBC, ANEU, ADIFF, HEPAC, CMP #### [address] [address] Monocytes/100 WBC (Bld) 10.5 % Normal 2.0-13.0 [facility] Comment on above: Performed By: #### L D, GFR, CBC, ANEU, ADIFF, HEPAC, CMP #### [address] [address] Neutrophils/100 WBC (Bld) 59.9 % Normal 50.0-75.0 [facility] Comment on above: Performed By: #### L D, GFR, CBC, ANEU, ADIFF, HEPAC, CMP #### [address] [address] .GFRon 06-17-2024 Estimated Glomerular Filtration Rate 9 ml/min/1.73sqm Normal [facility] Comment on above: Result Comment: Stages of Chronic Kidney Disease (CKD) Stage Description eGFR(ml/min/1.73 sq.m.) CKD 1 Normal kidney function or >=90 normal kindney function with possible kidney damage (ex. Proteinuria) CKD 2 Kidney damage with mild loss 60-89 of kidney function CKD 3a Mild to moderate loss of kidney 45-59 function CKD 3b Moderate to severe loss of 30-44 of kindey function CKD 4 Severe loss of kidney function 15-29 CKD 5 Kidney failure <15 Note: (go live 2024) the eGFR calculation was updated to the 2020 CKD-EPI creatinine equation without a race factor to calculate the eGFR results. Performed By: #### C BC, GFR, AGA, ANEU, TSH, CMP, LD, ADIFF #### [place] [address] .NEUABSon 06-17-2024 Neutrophil, Absolute 3.1 10 3/mcL Normal 2.3-8.1 [facility] Comment on above: Performed By: #### C BC, GFR, AGA, ANEU, TSH, CMP, LD, ADIFF #### [place] [address] CBCon 06-17-2024 Erythrocyte distribution width (RBC) [Ratio] 17.7 % High 11.5-15.5 [facility] Comment on above: Performed By: #### L D, GFR, CBC, ANEU, ADIFF, HEPAC, CMP #### [place] [address] Hematocrit (Bld) [Volume fraction] 29.1 % Low 34.0-46.0 [facility] Comment on above: Performed By: #### L D, GFR, CBC, ANEU, ADIFF, HEPAC, CMP #### [place] [address] Hgb 9.7 G/dL Low 12.0-16.0 [facility] Comment on above: Performed By: #### L D, GFR, CBC, ANEU, ADIFF, HEPAC, CMP #### [place] [address] MCH (RBC) [Entitic mass] 29.8 pg Normal 27.0-33.0 [facility] Comment on above: Performed By: #### L D, GFR, CBC, ANEU, ADIFF, HEPAC, CMP #### [place] [address] MCHC 33.2 G/dL Normal 32.0-36.0 [facility] Comment on above: Performed By: #### L D, GFR, CBC, ANEU, ADIFF, HEPAC, CMP #### [place] [address] MCV (RBC) [Entitic vol] 89.6 fL Normal 80.0-99.0 [facility] Comment on above: Performed By: #### L D, GFR, CBC, ANEU, ADIFF, HEPAC, CMP #### [place] [address] Platelet 129 10 3/mcL Low 150-450 [facility] Comment on above: Performed By: #### L D, GFR, CBC, ANEU, ADIFF, HEPAC, CMP #### [place] [address] Platelet mean volume (Bld) [Entitic vol] 9.1 fL Normal 6.6-10.5 [facility] Comment on above: Performed By: #### L D, GFR, CBC, ANEU, ADIFF, HEPAC, CMP #### [place] [address] RBC 3.25 10 6/mcL Low 4.10-5.30 [facility] Comment on above: Performed By: #### L D, GFR, CBC, ANEU, ADIFF, HEPAC, CMP #### [place] [address] WBC 5.2 10 3/mcL Normal 4.5-10.8 [facility] Comment on above: Performed By: #### L D, GFR, CBC, ANEU, ADIFF, HEPAC, CMP #### [place] [address] CMPon 06-17-2024 Albumin Level 2.4 G/dL Low 3.2-4.8 [facility] Comment on above: Performed By: #### C BC, GFR, AGA, ANEU, TSH, CMP, LD, ADIFF #### [place] [address] Albumin/Globulin [Mass ratio] 0.9 {ratio} Normal 0.9-1.6 [facility] Comment on above: Performed By: #### C BC, GFR, AGA, ANEU, TSH, CMP, LD, ADIFF #### [place] [address] ALP [Catalytic activity/Vol] 68 U/L Normal 38-126 [facility] Comment on above: Performed By: #### C BC, GFR, AGA, ANEU, TSH, CMP, LD, ADIFF #### [address] [address] ALT/SGPT <8 Low 10-49 [facility] Comment on above: Performed By: #### C BC, GFR, AGA, ANEU, TSH, CMP, LD, ADIFF #### [address] [address] AST [Catalytic activity/Vol] 15 U/L Normal 8-34 [facility] Comment on above: Performed By: #### C BC, GFR, AGA, ANEU, TSH, CMP, LD, ADIFF #### [place] [id number] Bili Total <0.20 Normal 0.20-1.20 [facility] Comment on above: Result Comment: Use of this assay is not recommended for patients undergoing treatment with eltrombopag due to the potential for falsely elevated results. Performed By: #### C BC, GFR, AGA, ANEU, TSH, CMP, LD, ADIFF #### [place] [id number] BUN/Creatinine Ratio 6.4 ratio Low 10.0-22.0 [facility] Comment on above: Performed By: #### C BC, GFR, AGA, ANEU, TSH, CMP, LD, ADIFF #### [address] [address] Calcium [Mass/Vol] 9.2 mg/dL Normal 8.7-10.4 [facility] Comment on above: Performed By: #### C BC, GFR, AGA, ANEU, TSH, CMP, LD, ADIFF #### [address] [address] Chloride [Moles/Vol] 99 mmol/L Normal 98-110 [facility] Comment on above: Performed By: #### C BC, GFR, AGA, ANEU, TSH, CMP, LD, ADIFF #### [place] [id number] CO2 [Moles/Vol] 35 mmol/L High 22-32 [facility] Comment on above: Performed By: #### C BC, GFR, AGA, ANEU, TSH, CMP, LD, ADIFF #### [address] [address] Creatinine [Mass/Vol] 4.40 mg/dL High 0.50-1.20 [facility] Comment on above: Result Comment: Test ing performed on Bapul analyzer using enzymatic creatinine methodology. Performed By: #### C BC, GFR, AGA, ANEU, TSH, CMP, LD, ADIFF #### [address] [address] Electrolyte Balance 5.0 mEq/L Normal 4.0-15.0 [facility] Comment on above: Performed By: #### C BC, GFR, AGA, ANEU, TSH, CMP, LD, ADIFF #### [address] [address] Globulin 2.8 G/dL Normal 1.5-3.8 [facility] Comment on above: Performed By: #### C BC, GFR, AGA, ANEU, TSH, CMP, LD, ADIFF #### [address] [address] Glucose [Mass/Vol] 122 mg/dL High 82-115 [facility] Comment on above: Performed By: #### C BC, GFR, AGA, ANEU, TSH, CMP, LD, ADIFF #### [address] [address] Potassium [Moles/Vol] 4.0 mmol/L Normal 3.5-5.0 [facility] Comment on above: Performed By: #### C BC, GFR, AGA, ANEU, TSH, CMP, LD, ADIFF #### [address] [address] Sodium [Moles/Vol] 139 mmol/L Normal 136-145 [facility] Comment on above: Performed By: #### C BC, GFR, AGA, ANEU, TSH, CMP, LD, ADIFF #### [place] [phone] Total Protein 5.2 G/dL Low 5.7-8.2 [facility] Comment on above: Performed By: #### C BC, GFR, AGA, ANEU, TSH, CMP, LD, ADIFF #### [place] [address] Urea nitrogen [Mass/Vol] 28.0 mg/dL High 8.0-22.0 [facility] Comment on above: Performed By: #### C BC, GFR, AGA, ANEU, TSH, CMP, LD, ADIFF #### [place] [address] HEPACon 06-17-2024 Hep A IgM Ab Non-Reactive Normal Non-Reactive [facility] Comment on above: Performed By: #### C BC, GFR, AGA, ANEU, TSH, CMP, LD, ADIFF #### [place] [address] Hep A IgM Ab Int [facility] Comment on above: Result Comment: No s erological evidence of a current Hepatitis A infection. See Interp Performed By: #### C BC, GFR, AGA, ANEU, TSH, CMP, LD, ADIFF #### [place] [address] Hep B Core IgM Ab Non-Reactive Normal Non-Reactive [facility] Comment on above: Performed By: #### C BC, GFR, AGA, ANEU, TSH, CMP, LD, ADIFF #### [place] [address] Hep B Core IgM Ab Int Normal [facility] Comment on above: Result Comment: Samp les with a value < 0.80 Index are considered nonreactive (negative) for IgM antibodies to hepatitis B core antigen. See Interp Performed By: #### C BC, GFR, AGA, ANEU, TSH, CMP, LD, ADIFF #### [place] [address] Hep B Surf Ag Non-Reactive Normal Non-Reactive [facility] Comment on above: Performed By: #### C BC, GFR, AGA, ANEU, TSH, CMP, LD, ADIFF #### [place] [address] Hep C Ab Non-Reactive Normal Non-Reactive [facility] Comment on above: Performed By: #### C BC, GFR, AGA, ANEU, TSH, CMP, LD, ADIFF #### [address] [address] Hep C Ab Int Normal [facility] Comment on above: Result Comment: Nonr eactive: Samples with a value < 0.80 are considered nonreactive (negative) for antibodies to HCV. A negative test result does not exclude the possibility of exposure to or infection with HCV. HCV antibodies may be undetectable in some stages of the infection and in some clinical conditions. See Interp Performed By: #### C BC, GFR, AGA, ANEU, TSH, CMP, LD, ADIFF #### [place] [id number] [address] [place] [id number] LABORATORYOrdered By: SYSTEM SYSTEM on 06-17-2024 Albumin BCP dye [Mass/Vol] 2.4 G/dL Low 3.2 - 4.8 G/dL ADM SS Albumin/Globulin [Mass ratio] 0.9 {ratio} Normal 0.9 - 1.6 ratio ADM SS ALP [Catalytic activity/Vol] 68 U/L Normal 38 - 126 U/L ADM SS ALT No additional P-5'-P [Catalytic activity/Vol] U/L 1 Low 10 - 49 U/L ADM SS AST [Catalytic activity/Vol] 15 U/L Normal 8 - 34 U/L ADM SS Basophils (Bld) [#/Vol] 0.0 103/mcL Normal 0.0 - 0.3 10^3/mcL Workflow SS Basophils/100 WBC (Bld) 0.4 % Normal 0.0 - 2.5 % Workflow SS Bilirubin [Mass/Vol] mg/dL Normal 0.20 - 1.20 mg/dL ADM SS Comment on above: Interpretive Data: U se of this assay is not recommended for patients undergoing treatment with eltrombopag due to the potential for falsely elevated results. Calcium [Mass/Vol] 9.2 mg/dL Normal 8.7 - 10. 4 mg/dL ADM SS Chloride [Moles/Vol] 99 mmol/L Normal 98 - 11 0 mEq/L AH ADM SS CO2 [Moles/Vol] 35 mmol/L High 22 - 32 mEq/L AH ADM SS Creatinine [Mass/Vol] 4.40 mg/dL High 0.50 - 1.20 mg/dL ADM SS Comment on above: Interpretive Data: T esting performed on Bapul analyzer using enzymatic creatinine methodology. Electrolyte Balance 5.0 mEq/L Normal 4.0 - 15 .0 mEq/L ADM SS Eosinophils (Bld) [#/Vol] 0.2 103/mcL Normal 0.0 - 0.7 10^3/mcL Workflow SS Eosinophils/100 WBC (Bld) 3.1 % Normal 0.0 - 6.0 % Workflow SS Erythrocyte distribution width (RBC) [Ratio] 17.7 % High 11.5 - 15.5 % Workflow SS Estimated Glomerular Filtration Rate 9 ml/min/1.73sqm Invalid Interpretation Code ADM SS Comment on above: Interpretive Data: Stages of Chronic Kidney Disease (CKD) Stage Description eGFR(ml/min/1.73 sq.m.) CKD 1 Normal kidney function or >=90 normal kindney function with possible kidney damage (ex. Proteinuria) CKD 2 Kidney damage with mild loss 60-89 of kidney function CKD 3a Mild to moderate loss of kidney 45-59 function CKD 3b Moderate to severe loss of 30-44 of kindey function CKD 4 Severe loss of kidney function 15-29 CKD 5 Kidney failure <15 Note: (go live 2024) the eGFR calculation was updated to the 2020 CKD-EPI creatinine equation without a race factor to calculate the eGFR results. Globulin 2.8 G/dL Normal 1.5 - 3.8 G/dL ADM SS Glucose [Mass/Vol] 122 mg/dL High 82 - 115 mg/dL ADM SS Hematocrit (Bld) [Volume fraction] 29.1 % Low 34.0 - 46.0 % Workflow SS Hemoglobin (Bld) [Mass/Vol] 9.7 G/dL Low 12.0 - 16.0 G/dL Workflow SS LDH Lactate to pyruvate reaction [Catalytic activity/Vol] 165 1 Normal 120 - 246 U/L ADM SS Lymphocytes (Bld) [#/Vol] 1.4 103/mcL Normal 0.9 - 4.3 10^3/mcL Workflow SS Lymphocytes/100 WBC (Bld) 26.1 % Normal 20.0 - 40.0 % Workflow SS MCH (RBC) [Entitic mass] 29.8 pg Normal 27.0 - 33.0 pg AH Workflow SS MCHC 33.2 G/dL Normal 32.0 - 36.0 G/dL AH Workflow SS MCV (RBC) [Entitic vol] 89.6 fL Normal 80.0 - 99.0 fL AH Workflow SS Monocytes (Bld) [#/Vol] 0.5 103/mcL Normal 0.1 - 1.4 10^3/mcL AH Workflow SS Monocytes/100 WBC (Bld) 10.5 % Normal 2.0 - 13.0 % AH Workflow SS Neutrophils (Bld) [#/Vol] 3.1 103/mcL Normal 2.3 - 8.1 10^3/mcL AH Workflow SS Neutrophils/100 WBC (Bld) 59.9 % Normal 50.0 - 75.0 % AH Workflow SS Platelet mean volume (Bld) [Entitic vol] 9.1 fL Normal 6.6 - 10.5 fL AH Workflow SS Platelets (Bld) [#/Vol] 129 103/mcL Low 150 - 450 10^3/mcL AH Workflow SS Potassium [Moles/Vol] 4.0 mmol/L Normal 3.5 - 5.0 mEq/L ADM SS Protein [Mass/Vol] 5.2 G/dL Low 5.7 - 8.2 G/dL ADM SS RBC (Bld) [#/Vol] 3.25 106/mcL Low 4.10 - 5.3 0 10^6/mcL AH Workflow SS Sodium [Moles/Vol] 139 mmol/L Normal 136 - 145 mEq/L ADM SS Urea nitrogen [Mass/Vol] 28.0 mg/dL High 8.0 - 22.0 mg/dL AH ADM SS Urea nitrogen/Creatinine [Mass ratio] 6.4 ratio Low 10.0 - 22.0 ratio ADM SS WBC (Bld) [#/Vol] 5.2 103/mcL Normal 4.5 - 10.8 10^3/mcL AH Workflow SS LABORATORYOrdered By: Aguilar Alexander on 06-17-2024 HAV IgM IA Ql Non-Reactive (06/17/24 4:16 PM) Normal Non-Reactive ADM SS HAV IgM IA Ql No serological evide nce of a current Hepatitis A infection. Invalid Interpretation Code Chemistry S HBV core IgM IA Ql Non-Reactive (06/17/24 4:16 PM) Normal Non-Reactive AH ADM SS HBV core IgM IA Ql Samples with a value < 0.80 Index are considered nonreactive (negative) for IgM antibodies to hepatitis B core antigen. Invalid Interpretation Code AH Chemistry S HBV surface Ag IA Ql Non-Reactive (06/17/24 4:16 PM) Normal Non-Reactive AH ADM SS HCV Ab IA Ql Non-Reactive (06/17/24 4:16 PM) Normal Non-Reactive AH ADM SS HCV Ab IA Ql Nonreactive: Samples with a value < 0.80 are considered nonreactive (negative) for antibodies to HCV.A negative test result does not exclude the possibility of exposure to or infection with HCV. HCV antibodies may be undetectable in some stages of the infection and in some clinical conditions. Invalid Interpretation Code Chemistry S LDHon 06-17-2024 LDH 165 U/L Normal 120-246 [facility] Comment on above: Performed By: #### C BC, GFR, AGA, ANEU, TSH, CMP, LD, ADIFF #### [facility] [address] [place] [address] BRCon 06-15-2024 Normal [facility] Comment on above: Result Comment: [id number] ON TRANSFUSED 06/16/24 0819 Performed By: #### B GURU SHABAZZ ####[facility] [id number] [place], [place], [id number] Type AND Screenon 06-15-2024 Ab SCREEN GEL Negative Normal [facility] Comment on above: Order Comment: [id number] Performed By: #### B [facility] ####[facility] [id number] [place], [place], [address] Blood urea nitrogen (BUN)/cr eatinine ratioOrdered By: Osmani Morgan on 06-14-2024 Urea nitrogen/Creatinine [Mass ratio] 5.0 mg/mg Low 10- [facility] Blood urea nitrogen (BUN)/creatinine ratio 5.0 RATIO Low 02-14 [facility] Calcium [Mass/Vol]Ordered By : Osmani Morgan on 06-14-2024 Serum or plasma calcium measurement (mass/volume) 9.2 mg/dL 8.5-10.1 [facility] Carbon dioxide measurementOr dered By: Osmani Morgan on 06-14-2024 CO2 [Moles/Vol] 27.0 mmol/L 21.0-32.0 [facility] Carbon dioxide measurement 27.0 mmol/L 21.0-32.0 [facility] Chloride measurementOrdered By: Osmani Morgan on 06-14-2024 Chloride [Moles/Vol] 106 mmol/L 98-107 [facility] Chloride measurement 106 mmol/L 98-107 [facility] Creatinine [Mass/Vol]Ordered By: Osmani Morgan on 06-14-2024 Serum or plasma creatinine measurement (mass/volume) 6.34 mg/dL High 0.55-1.02 [facility] Erythrocyte distribution wid th (RBC) [Ratio]Ordered By: sOmani Morgan on 06-14-2024 Erythrocyte distribution width ratio 16.4 % High 11.6-14.6 [facility] Erythrocyte distribution width standard deviation 58.2 fl High 35.1-43.9 [facility] Erythrocyte distribution wid th ratioOrdered By: Osmani Morgan on 06-14-2024 Erythrocyte distribution width (RBC) [Ratio] 16.4 % High 11.6-14.6 [facility] Erythrocyte distribution wid th standard deviationOrdered By: Osmani Morgan on 06-14-2024 Erythrocyte distribution width (RBC) [Ratio] 58.2 fl High 35.1-43.9 [facility] Estimated glomerular filtrat ion rate (GFR) AmericanOrdered By: Osmani Morgan on 06-14-2024 Estimated glomerular filtration rate (GFR) 8 mL/min Low >60 [facility] Glomerular filtration rate ( GFR) estimationOrdered By: Osmani Morgan on 06-14-2024 GFR/1.73 sq M.predicted among non-blacks MDRD (S/P/Bld) [Vol rate/Area] 7 mL/min/{1.73_m2} Low >60 [facility] Comment on above: Non- GFR Calc Glomerular filtration rate (GFR) estimation 7 mL/min Low >60 [facility] Glucose measurementOrdered B y: Osmani Morgan on 06-14-2024 Glucose [Mass/Vol] 97 mg/dL 74-106 [facility] Glucose measurement 97 mg/dL 74-106 [facility] Hematocrit Auto (Bld) [Volum e fraction]Ordered By: Osmani Morgan on 06-14-2024 Hematocrit (Bld) [Volume fraction] 22.9 % Low 37-47 [facility] Automated blood hematocrit (percentage) 22.9 % Low 37-47 [facility] Hemoglobin measurementOrdere d By: Osmani Morgan on 06-14-2024 Hemoglobin (Bld) [Mass/Vol] 7.0 g/dL Low 12.0-15.0 [facility] Hemoglobin measurement 7.0 g/dL Low 12.0-15.0 [facility] MCV (RBC) [Entitic vol]Order ed By: Osmani Morgan on 06-14-2024 MCV (mean corpuscular volume) determination 97.0 fL 81-99 [facility] MCV (mean corpuscular volume ) determinationOrdered By: Osmani Morgan on 06-14-2024 MCV (RBC) [Entitic vol] 97.0 fL 81-99 [facility] Mean corpuscular hemoglobin (MCH) determinationOrdered By: Osmani Morgan on 06-14-2024 MCH (RBC) [Entitic mass] 29.7 pg 27.0-32.0 [facility] Mean corpuscular hemoglobin (MCH) determination 29.7 pg 27.0-32.0 [facility] Mean corpuscular hemoglobin concentration (MCHC) determinationOrdered By: Osmani Morgan on 06-14-2024 MCHC (RBC) [Mass/Vol] 30.6 g/dL Low 32-36 [facility] Mean corpuscular hemoglobin concentration (MCHC) determination 30.6 g/dL Low 32-36 [facility] Mean platelet volume determi nationOrdered By: Osmani Morgan on 06-14-2024 Platelet mean volume (Bld) [Entitic vol] 11.7 fL 6.2-12.0 [facility] Mean platelet volume determination 11.7 fl 6.2-12.0 [facility] Platelet countOrdered By: Fatoumata Morgan on 06-14-2024 Platelets (Bld) [#/Vol] 112 10*3/uL Low 150-450 [facility] Platelet count 112 K/mm3 Low 150-450 [facility] Potassium measurementOrdered By: Osmani Morgan on 06-14-2024 Potassium [Moles/Vol] 4.0 mmol/L 3.5-5.1 [facility] Potassium measurement 4.0 mmol/L 3.5-5.1 [facility] RBC Auto (Bld) [#/Vol]Ordere d By: Osmani Morgan on 06-14-2024 RBC (Bld) [#/Vol] 2.36 10*6/uL Low 4.2-5.4 [facility] Automated blood erythrocyte count 2.36 M/mm3 Low 4.2-5.4 [facility] Serum anion gap measurementO rdered By: Osmani Morgan on 06-14-2024 Anion gap [Moles/Vol] 9 mmol/L 5-15 [facility] Serum anion gap measurement 9 5-15 [facility] Serum or plasma calcium sandra urement (mass/volume)Ordered By: Osmani Morgan on 06-14-2024 Calcium [Mass/Vol] 9.2 mg/dL 8.5-10.1 [facility] Serum or plasma creatinine m easurement (mass/volume)Ordered By: Osmani Morgan on 06-14-2024 Creatinine [Mass/Vol] 6.34 mg/dL High 0.55-1.02 [facility] Comment on above: The validity of the calculated GFR & GFRAA in patients over 70 years has not been determined. Clinical correlation is essential. Serum or plasma urea nitroge n measurement (mass/volume)Ordered By: Osmani Morgan on 06-14-2024 Urea nitrogen [Mass/Vol] 32 mg/dL High 7-18 [facility] Sodium levelOrdered By: Patrick Morgan on 06-14-2024 Sodium [Moles/Vol] 142 mmol/L 136-145 [facility] Sodium level 142 mmol/L 136-145 [facility] Urea nitrogen [Mass/Vol]Orde red By: Osmani Morgan on 06-14-2024 Serum or plasma urea nitrogen measurement (mass/volume) 32 mg/dL High 7-18 [facility] White blood cell (WBC) count Ordered By: Osmani Morgan on 06-14-2024 WBC (Bld) [#/Vol] 4.9 10*3/uL 4.4-11.0 [facility] White blood cell (WBC) count 4.9 K/mm3 4.4-11.0 [facility] Clostridium difficile detect ion by polymerase chain reactionOrdered By: Osmani Morgan on 06-11-2024 C. difficile DNA ALBIN+probe Ql (Unsp spec) [facility] Stool Clostridium difficile detectionOrdered By: Osmani Morgan on 06-11-2024 C. difficile Ql (Stl) [facility] Gastroenterology Visit Repor ton 06-10-2024 Gastroenterology Visit Report Normal [facility] Blood urea nitrogen (BUN)/cr eatinine ratioOrdered By: Osmani Morgan on 06-07-2024 Blood urea nitrogen (BUN)/creatinine ratio 5.1 RATIO Low 10-20 [facility] Calcium [Mass/Vol]Ordered By : Osmani Morgan on 06-07-2024 Serum or plasma calcium measurement (mass/volume) 9.3 mg/dL 8.5-10.1 [facility] Carbon dioxide measurementOr dered By: Osmani Morgan on 06-07-2024 Carbon dioxide measurement 27.0 mmol/L 21.0-32.0 [facility] Chloride measurementOrdered By: Osmani Morgan on 06-07-2024 Chloride measurement 105 mmol/L 98-107 [facility] Creatinine [Mass/Vol]Ordered By: Osmani Morgan on 06-07-2024 Serum or plasma creatinine measurement (mass/volume) 5.83 mg/dL High 0.55-1.02 [facility] Erythrocyte distribution wid th (RBC) [Ratio]Ordered By: Osmani Morgan on 06-07-2024 Erythrocyte distribution width ratio 18.1 % High 11.6-14.6 [facility] Erythrocyte distribution width standard deviation 62.1 fl High 35.1-43.9 [facility] Estimated glomerular filtrat ion rate (GFR) AmericanOrdered By: Osmani Morgan on 06-07-2024 Estimated glomerular filtration rate (GFR) 9 mL/min Low >60 [facility] Glomerular filtration rate ( GFR) estimationOrdered By: Osmani Morgan on 06-07-2024 Glomerular filtration rate (GFR) estimation 7 mL/min Low >60 [facility] Glucose measurementOrdered B y: Osmani Morgan on 06-07-2024 Glucose measurement 94 mg/dL 74-106 [facility] Hematocrit Auto (Bld) [Volum e fraction]Ordered By: Osmani Morgan on 06-07-2024 Automated blood hematocrit (percentage) 27.2 % Low 37-47 [facility] Hemoglobin measurementOrdere d By: Osmani Morgan on 06-07-2024 Hemoglobin measurement 8.3 g/dL Low 12.0-15.0 [facility] MCV (RBC) [Entitic vol]Order ed By: Osmani Morgan on 06-07-2024 MCV (mean corpuscular volume) determination 95.1 fL 81-99 [facility] Mean corpuscular hemoglobin (MCH) determinationOrdered By: Osmani Morgan 06-07-2024 Mean corpuscular hemoglobin (MCH) determination 29.0 pg 27.0-32.0 [facility] Mean corpuscular hemoglobin concentration (MCHC) determinationOrdered By: Osmani Morgan on 06-07-2024 Mean corpuscular hemoglobin concentration (MCHC) determination 30.5 g/dL Low 32-36 [facility] Mean platelet volume determi nationOrdered By: Osmani Morgan on 06-07-2024 Mean platelet volume determination 11.4 fl 6.2-12.0 [facility] Platelet countOrdered By: Fatoumata Morgan on 06-07-2024 Platelet count 145 K/mm3 Low 150-450 [facility] Potassium measurementOrdered By: Osmani Morgan on 06-07-2024 Potassium measurement 4.7 mmol/L 3.5-5.1 [facility] RBC Auto (Bld) [#/Vol]Ordere d By: Osmani Morgan on 06-07-2024 Automated blood erythrocyte count 2.86 M/mm3 Low 4.2-5.4 [facility] Serum anion gap measurementO rdered By: Osmani Morgan on 06-07-2024 Serum anion gap measurement 8 5-15 [facility] Sodium levelOrdered By: Patrick Morgan on 06-07-2024 Sodium level 140 mmol/L 136-145 [facility] Urea nitrogen [Mass/Vol]Orde red By: Osmani Morgan on 06-07-2024 Serum or plasma urea nitrogen measurement (mass/volume) 30 mg/dL High 7-18 [facility] White blood cell (WBC) count Ordered By: Osmani Morgan on 06-07-2024 White blood cell (WBC) count 5.5 K/mm3 4.4-11.0 [facility] BRCon 06-03-2024 RC Normal [facility] Comment on above: Result Comment: [id number] OP RC TRANSFUSED 06/04/24 0839 Performed By: #### B HARIKA [facility] ####[facility] [address] [place], [place], [address] Type AND Screenon 06-03-2024 ABO and Rh group Nom (Bld) Blood group O Rh(D) positive Normal [facility] Comment on above: Order Comment: @[id number] Performed By: #### B HARIKA, [facility] ####[facility] [address] [place], [address] Blood urea nitrogen (BUN)/cr eatinine ratioOrdered By: Osmani Morgan on 05-31-2024 Blood urea nitrogen (BUN)/creatinine ratio 7.4 RATIO Low 10-20 [facility] Calcium [Mass/Vol]Ordered By : Osmani Morgan on 05-31-2024 Serum or plasma calcium measurement (mass/volume) 9.2 mg/dL 8.5-10.1 [facility] Carbon dioxide measurementOr dered By: Osmani Morgan on 05-31-2024 Carbon dioxide measurement 27.0 mmol/L 21.0-32.0 [facility] Chloride measurementOrdered By: Osmani Morgan on 05-31-2024 Chloride measurement 105 mmol/L 98-107 [facility] Creatinine [Mass/Vol]Ordered By: Osmani Morgan on 05-31-2024 Serum or plasma creatinine measurement (mass/volume) 5.94 mg/dL High 0.55-1.02 [facility] Erythrocyte distribution wid th (RBC) [Ratio]Ordered By: Osmani Morgan on 05-31-2024 Erythrocyte distribution width ratio 17.3 % High 11.6-14.6 [facility] Erythrocyte distribution width standard deviation 60.7 fl High 35.1-43.9 [facility] Estimated glomerular filtrat ion rate (GFR) AmericanOrdered By: Osmani Morgan on 05-31-2024 Estimated glomerular filtration rate (GFR) 9 mL/min Low >60 [facility] Glomerular filtration rate ( GFR) estimationOrdered By: Osmani Morgan on 05-31-2024 Glomerular filtration rate (GFR) estimation 7 mL/min Low >60 [facility] Glucose measurementOrdered B y: Osmani Morgan on 05-31-2024 Glucose measurement 96 mg/dL 74-106 [facility] Hematocrit Auto (Bld) [Volum e fraction]Ordered By: Osmani Morgan on 05-31-2024 Automated blood hematocrit (percentage) 21.9 % Low 37-47 [facility] Hemoglobin measurementOrdere d By: Osmani Morgan on 05-31-2024 Hemoglobin measurement 7.0 g/dL Low 12.0-15.0 [facility] MCV (RBC) [Entitic vol]Order ed By: Osmani Morgan on 05-31-2024 MCV (mean corpuscular volume) determination 96.1 fL 81-99 [facility] Mean corpuscular hemoglobin (MCH) determinationOrdered By: Osmani Morgan on 05-31-2024 Mean corpuscular hemoglobin (MCH) determination 30.7 pg 27.0-32.0 [facility] Mean corpuscular hemoglobin concentration (MCHC) determinationOrdered By: Osmani Morgan on 05-31-2024 Mean corpuscular hemoglobin concentration (MCHC) determination 32.0 g/dL 32-36 [facility] Mean platelet volume determi nationOrdered By: Osmani Morgan on 05-31-2024 Mean platelet volume determination 11.4 fl 6.2-12.0 [facility] Platelet countOrdered By: Fatoumata Morgan on 05-31-2024 Platelet count 152 K/mm3 150-450 [facility] Potassium measurementOrdered By: Osmani Morgan on 05-31-2024 Potassium measurement 4.8 mmol/L 3.5-5.1 [facility] RBC Auto (Bld) [#/Vol]Ordere d By: Osmani Morgan on 05-31-2024 Automated blood erythrocyte count 2.28 M/mm3 Low 4.2-5.4 [facility] Serum anion gap measurementO rdered By: Osmani Morgan on 05-31-2024 Serum anion gap measurement 8 5-15 [facility] Sodium levelOrdered By: Patrick Morgan on 05-31-2024 Sodium level 140 mmol/L 136-145 [facility] Urea nitrogen [Mass/Vol]Orde red By: Osmani Morgan on 05-31-2024 Serum or plasma urea nitrogen measurement (mass/volume) 44 mg/dL High 7-18 [facility] White blood cell (WBC) count Ordered By: Osmani Morgan on 05-31-2024 White blood cell (WBC) count 5.8 K/mm3 4.4-11.0 [facility] Absolute neutrophil countOrd ered By: Osmani Morgan on 05-26-2024 Absolute neutrophil count 3.5 X10^3/uL 2.0-7.7 [facility] Blood band neutrophil count as percentage of total leukocytesOrdered By: Omsani Morgan on 05-26-2024 Blood band neutrophil count as percentage of total leukocytes 1 % High 0-0 [facility] Blood monocytes/100 leukocyt esOrdered By: Osmani Morgan on 05-26-2024 Blood monocytes/100 leukocytes 6 % High 0-5 [facility] Cells counted Molgen (Bld/Ti ss) [#]Ordered By: Osmani Morgan on 05-26-2024 Total cell count 100 MANUAL DIFF [facility] Erythrocyte distribution wid th (RBC) [Ratio]Ordered By: Osmani Morgan on 05-26-2024 Erythrocyte distribution width ratio 17.2 % High 11.6-14.6 [facility] Erythrocyte distribution width standard deviation 57.0 fl High 35.1-43.9 [facility] Hematocrit Auto (Bld) [Volum e fraction]Ordered By: Osmani Morgan on 05-26-2024 Automated blood hematocrit (percentage) 27.4 % Low 37-47 [facility] Hemoglobin measurementOrdere d By: Osmani Morgan on 05-26-2024 Hemoglobin measurement 8.8 g/dL Low 12.0-15.0 [facility] Lymphocytes Auto (Unsp spec) [#/Vol]Ordered By: Osmani Morgan on 05-26-2024 Absolute lymphocyte count 1.99 X10^3/uL 0.83-4.51 [facility] Lymphocytes/100 WBC (Bld)Ord ered By: Osmani Morgan on 05-26-2024 Blood lymphocytes/100 leukocytes 31 % 19-41 [facility] MCV (RBC) [Entitic vol]Order ed By: Osmani Morgan on 05-26-2024 MCV (mean corpuscular volume) determination 92.3 fL 81-99 [facility] Mean corpuscular hemoglobin (MCH) determinationOrdered By: Osmani Morgan on 05-26-2024 Mean corpuscular hemoglobin (MCH) determination 29.6 pg 27.0-32.0 [facility] Mean corpuscular hemoglobin concentration (MCHC) determinationOrdered By: Osmani Morgan on 05-26-2024 Mean corpuscular hemoglobin concentration (MCHC) determination 32.1 g/dL 32-36 [facility] Mean platelet volume determi nationOrdered By: Osmani Morgan on 05-26-2024 Mean platelet volume determination 11.2 fl 6.2-12.0 [facility] Metamyelocytes/100 WBC (Bld) Ordered By: Osmani Morgan on 05-26-2024 Blood metamyelocytes/100 leukocytes 2 % High 0-1 [facility] Neutrophil percentageOrdered By: Osmani Morgan on 05-26-2024 Neutrophil percentage Not Reportable [facility] Pathologist review [place] (Unsp spec) [Interp]Ordered By: Osmani Morgan on 05-26-2024 Review by pathologist Reviewed [facility] Platelet countOrdered By: Fatoumata Morgan on 05-26-2024 Platelet count 174 K/mm3 150-450 [facility] Platelets LM Ql (Bld)Ordered By: Osmani Morgan on 05-26-2024 Platelet estimate ADEQUATE ADEQ [facility] Polychromasia LM Ql (Bld)Ord ered By: Osmani Morgan on 05-26-2024 Blood polychromasia detection by light microscopy 1+ [facility] RBC Auto (Bld) [#/Vol]Ordere d By: Osmani Morgan on 05-26-2024 Automated blood erythrocyte count 2.97 M/mm3 Low 4.2-5.4 [facility] RBC morphology finding Nom ( Bld)Ordered By: Osmani Morgan on 05-26-2024 Erythrocyte morphology assessment N CYTIC NORMAL NORM C&C [facility] Segmented neutrophils/100 WB C (Bld)Ordered By: Osmani Morgan on 05-26-2024 Blood segmented neutrophils/100 leukocytes 53 % 47-70 [facility] White blood cell (WBC) count Ordered By: Osmani Morgan on 05-26-2024 White blood cell (WBC) count 6.5 K/mm3 4.4-11.0 [facility] BRCon 05-25-2024 RC Normal [facility] Comment on above: Result Comment: [id number] OP RC TRANSFUSED 05/25/24 1213 Performed By: #### B , BR ####[facility] [address] [place], [address] Type AND Screenon 05-25-2024 Ab SCREEN GEL Negative Normal [facility] Comment on above: Order Comment: [id number] Performed By: #### B TS, BR ####[facility] [address] [place], [id number] 21-JP-Eymlcvl DOrdered By: Thompson Morgan on 05-24-2024 47-OI-Vbptrgo D 31.0 ng/mL [facility] Blood urea nitrogen (BUN)/cr eatinine ratioOrdered By: Osmani Morgan on 05-24-2024 Blood urea nitrogen (BUN)/creatinine ratio 10.9 RATIO 10-20 [facility] Calcium [Mass/Vol]Ordered By : Osmani Morgan on 05-24-2024 Serum or plasma calcium measurement (mass/volume) 9.6 mg/dL 8.5-10.1 [facility] Carbon dioxide measurementOr dered By: Osmani Morgan on 05-24-2024 Carbon dioxide measurement 26.0 mmol/L 21.0-32.0 [facility] Chloride measurementOrdered By: Osmani Morgan on 05-24-2024 Chloride measurement 104 mmol/L 98-107 [facility] Creatinine [Mass/Vol]Ordered By: Osmani Morgan on 05-24-2024 Serum or plasma creatinine measurement (mass/volume) 6.03 mg/dL High 0.55-1.02 [facility] Erythrocyte distribution wid th (RBC) [Ratio]Ordered By: Osmani Morgan on 05-24-2024 Erythrocyte distribution width ratio 16.9 % High 11.6-14.6 [facility] Erythrocyte distribution width standard deviation 57.1 fl High 35.1-43.9 [facility] Estimated glomerular filtrat ion rate (GFR) AmericanOrdered By: Osmani Morgan on 05-24-2024 Estimated glomerular filtration rate (GFR) 9 mL/min Low >60 [facility] Glomerular filtration rate ( GFR) estimationOrdered By: Osmani Morgan on 05-24-2024 Glomerular filtration rate (GFR) estimation 7 mL/min Low >60 [facility] Glucose measurementOrdered B y: Osmani Morgan on 05-24-2024 Glucose measurement 110 mg/dL High 74-106 [facility] Hematocrit Auto (Bld) [Volum e fraction]Ordered By: Osmani Morgan on 05-24-2024 Automated blood hematocrit (percentage) 22.4 % Low 37-47 [facility] Hemoglobin measurementOrdere d By: Osmani Morgan on 05-24-2024 Hemoglobin measurement 6.9 g/dL Low 12.0-15.0 [facility] MCV (RBC) [Entitic vol]Order ed By: Osmani Morgan on 05-24-2024 MCV (mean corpuscular volume) determination 94.5 fL 81-99 [facility] Mean corpuscular hemoglobin (MCH) determinationOrdered By: Osmani Morgan on 05-24-2024 Mean corpuscular hemoglobin (MCH) determination 29.1 pg 27.0-32.0 [facility] Mean corpuscular hemoglobin concentration (MCHC) determinationOrdered By: Osmani Morgan on 05-24-2024 Mean corpuscular hemoglobin concentration (MCHC) determination 30.8 g/dL Low 32-36 [facility] Mean platelet volume determi nationOrdered By: Osmani Morgan on 05-24-2024 Mean platelet volume determination 11.8 fl 6.2-12.0 [facility] Platelet countOrdered By: Fatoumata Morgan on 05-24-2024 Platelet count 149 K/mm3 Low 150-450 [facility] Potassium measurementOrdered By: Osmani Morgan on 05-24-2024 Potassium measurement 4.8 mmol/L 3.5-5.1 [facility] RBC Auto (Bld) [#/Vol]Ordere d By: Osmani Morgan on 05-24-2024 Automated blood erythrocyte count 2.37 M/mm3 Low 4.2-5.4 [facility] Serum anion gap measurementO rdered By: Osmani Morgan on 05-24-2024 Serum anion gap measurement 8 5-15 [facility] Sodium levelOrdered By: Patrick torrezkoko Cathy on 05-24-2024 Sodium level 138 mmol/L 136-145 [facility] Urea nitrogen [Mass/Vol]Orde red By: Osmani Morgan on 05-24-2024 Serum or plasma urea nitrogen measurement (mass/volume) 66 mg/dL High 7-18 [facility] White blood cell (WBC) count Ordered By: Osmani Morgan on 05-24-2024 White blood cell (WBC) count 5.7 K/mm3 4.4-11.0 [facility] ALP [Catalytic activity/Vol] Ordered By: Osmani Morgan on 05-20-2024 Serum or plasma alkaline phosphatase measurement 65 U/L 45-117 [facility] ALT [Catalytic activity/Vol] Ordered By: Osmani Morgan on 05-20-2024 Serum or plasma alanine aminotransferase (ALT) measurement 9 U/L Low 13-56 [facility] Absolute neutrophil countOrd ered By: Osmani Morgan on 05-20-2024 Absolute neutrophil count 2.8 X10^3/uL 2.0-7.7 [facility] Albumin [Mass/Vol]Ordered By : Osmani Morgan on 05-20-2024 Serum or plasma albumin measurement (mass/volume) 1.8 g/dL Low 3.2-5.0 [facility] Albumin to globulin ratioOrd ered By: Osmani Morgan on 05-20-2024 Albumin to globulin ratio 0.6 RATIO Low 0.9-2.4 [facility] Basic Metabolic Profile (BMP )on 05-20-2024 BUN Normal -18 [facility] Comment on above: Result Comment: Canc elled via OM: Order cancelled - Patient discharged Performed By: #### L 100.0100, L500.2500 ####[facility] [address] [place], [address] BUN/CRE Normal 10-20 [facility] Comment on above: Result Comment: Canc elled via OM: Order cancelled - Patient discharged Performed By: #### L 100.0100, L500.2500 ####[facility] [address] [place], [address] CA,Total Normal 8.5-10.1 [facility] Comment on above: Result Comment: Canc elled via OM: Order cancelled - Patient discharged Performed By: #### L 100.0100, L500.2500 ####[facility] [address] [place], [address] CL Normal 98-107 [facility] Comment on above: Result Comment: Canc elled via OM: Order cancelled - Patient discharged Performed By: #### L 100.0100, L500.2500 ####[facility] [address] [place], [address] CO2 Normal 21.0-32.0 [facility] Comment on above: Result Comment: Canc elled via OM: Order cancelled - Patient discharged Performed By: #### L 100.0100, L500.2500 ####[facility] [address] [place], [address] CREAT,SERUM Normal 0.55-1.02 [facility] Comment on above: Result Comment: Canc elled via OM: Order cancelled - Patient discharged Performed By: #### L 100.0100, L500.2500 ####[facility] [address] [place], [address] EST GFR Normal >60 [facility] Comment on above: Result Comment: Canc elled via OM: Order cancelled - Patient discharged Performed By: #### L 100.0100, L500.2500 ####[facility] [address] [place], [address] EST GFR - AA Normal >60 [facility] Comment on above: Result Comment: Canc elled via OM: Order cancelled - Patient discharged Performed By: #### L 100.0100, L500.2500 ####[facility] [address] [place], [address] GAP Normal 5-15 [facility] Comment on above: Result Comment: Canc elled via OM: Order cancelled - Patient discharged Performed By: #### L 100.0100, L500.2500 ####[facility] [address] [place], [address] GLU Normal 74-106 [facility] Comment on above: Result Comment: Canc elled via OM: Order cancelled - Patient discharged Performed By: #### L 100.0100, L500.2500 ####[facility] [address] [place], [address] Potassium Normal 3.5-5.1 [facility] Comment on above: Result Comment: Canc elled via OM: Order cancelled - Patient discharged Performed By: #### L 100.0100, L500.2500 ####[facility] [address] [place], [address] Basic Metabolic Profile (BMP) Normal 136-145 [facility] Comment on above: Result Comment: Canc elled via OM: Order cancelled - Patient discharged Performed By: #### L 100.0100, L500.2500 ####[facility] [address] [place], [address] Basophil percentageOrdered B y: Fatoumatakarime Morgan on 05-20-2024 Basophil percentage 0.2 % 0-1 [facility] Bilirubin, totalOrdered By: Osmani Jordanthompson on 05-20-2024 Bilirubin, total 0.20 mg/dL 0.20-1.00 [facility] Blood urea nitrogen (BUN)/cr eatinine ratioOrdered By: Fatoumataodiliamerconstantino Myersjoannthompson on 05-20-2024 Blood urea nitrogen (BUN)/creatinine ratio 9.4 RATIO Low 10-20 [facility] CBC W/Diff, Automatedon - Absolute Neut Normal 2.0-7.7 [facility] Comment on above: Result Comment: Canc elled via OM: Order cancelled - Patient discharged Performed By: #### L 100.0100, L500.2500 ####[facility] [address] [place], [address] HCT Normal 37-47 [facility] Comment on above: Result Comment: Canc elled via OM: Order cancelled - Patient discharged Performed By: #### L 100.0100, L500.2500 ####[facility] [address] [place], [address] HGB Normal 12.0-15.0 [facility] Comment on above: Result Comment: Canc elled via OM: Order cancelled - Patient discharged Performed By: #### L 100.0100, L500.2500 ####[facility] [address] [place], [address] MCH Normal 27.0-32.0 [facility] Comment on above: Result Comment: Canc elled via OM: Order cancelled - Patient discharged Performed By: #### L 100.0100, L500.2500 ####[facility] [address] [place], [address] MCHC Normal 32-36 [facility] Comment on above: Result Comment: Canc elled via OM: Order cancelled - Patient discharged Performed By: #### L 100.0100, L500.2500 ####[facility] [address] [place], [address] MCV Normal 81-99 [facility] Comment on above: Result Comment: Canc elled via OM: Order cancelled - Patient discharged Performed By: #### L 100.0100, L500.2500 ####[facility] [address] [place], [address] NEUT% Normal 47-70 [facility] Comment on above: Result Comment: Canc elled via OM: Order cancelled - Patient discharged Performed By: #### L 100.0100, L500.2500 ####[facility] [address] [place], [place], [address] PLT Normal 150-450 [facility] Comment on above: Result Comment: Canc elled via OM: Order cancelled - Patient discharged Performed By: #### L 100.0100, L500.2500 ####[facility] [address] [place], [address] RBC Normal 4.2-5.4 [facility] Comment on above: Result Comment: Canc elled via OM: Order cancelled - Patient discharged Performed By: #### L 100.0100, L500.2500 ####[facility] [address] [place], [address] RDW CV Normal 11.6-14.6 [facility] Comment on above: Result Comment: Canc elled via OM: Order cancelled - Patient discharged Performed By: #### L 100.0100, L500.2500 ####[facility] [address] [place], [address] RDW SD Normal 35.1-43.9 [facility] Comment on above: Result Comment: Canc elled via OM: Order cancelled - Patient discharged Performed By: #### L 100.0100, L500.2500 ####[facility] [address] [place], [address] WBC Normal 4.4-11.0 [facility] Comment on above: Result Comment: Canc elled via OM: Order cancelled - Patient discharged Performed By: #### L 100.0100, L500.2500 ####[facility] [address] [place], [address] Calcium [Mass/Vol]Ordered By : Osmani Morgan on 05-20-2024 Serum or plasma calcium measurement (mass/volume) 9.0 mg/dL 8.5-10.1 [facility] Carbon dioxide measurementOr dered By: Osmani Morgan on 05-20-2024 Carbon dioxide measurement 26.0 mmol/L 21.0-32.0 [facility] Chloride measurementOrdered By: Osmani Morgan on 05-20-2024 Chloride measurement 104 mmol/L 98-107 [facility] Creatinine [Mass/Vol]Ordered By: Osmani Morgan on 05-20-2024 Serum or plasma creatinine measurement (mass/volume) 4.04 mg/dL High 0.55-1.02 [facility] Culture, Blood (WB)on 2024 CUB Blood cultures x2, f rom two different sites No growth in 5 days. Normal [facility] Comment on above: Performed By: #### M 200.1000, L300.3900, L300.4310 ####[facility] [address] [place], [address] Eosinophil percentageOrdered By: Osmani Morgan on 05-20-2024 Eosinophil percentage 3.9 % 0-5 [facility] Erythrocyte distribution wid th (RBC) [Ratio]Ordered By: Osmani Morgan on 05-20-2024 Erythrocyte distribution width ratio 18.5 % High 11.6-14.6 [facility] Erythrocyte distribution width standard deviation 62.7 fl High 35.1-43.9 [facility] Estimated glomerular filtrat ion rate (GFR) AmericanOrdered By: Osmani Morgan on 05-20-2024 Estimated glomerular filtration rate (GFR) 14 mL/min Low >60 [facility] Glomerular filtration rate ( GFR) estimationOrdered By: Osmani Morgan on 05-20-2024 Glomerular filtration rate (GFR) estimation 11 mL/min Low >60 [facility] Glucose measurementOrdered B y: Osmani Morgan on 05-20-2024 Glucose measurement 106 mg/dL 74-106 [facility] Hematocrit Auto (Bld) [Volum e fraction]Ordered By: Osmani Morgan on 05-20-2024 Automated blood hematocrit (percentage) 24.1 % Low 37-47 [facility] Hemoglobin measurementOrdere d By: Osmani Morgan on 05-20-2024 Hemoglobin measurement 7.6 g/dL Low 12.0-15.0 [facility] Immature granulocytes/100 WB C Auto (Bld)Ordered By: Osmani Morgan on 05-20-2024 Automated immature granulocyte percentage 1.200 % High 0.0-0.9 [facility] Lymphocytes Auto (Unsp spec) [#/Vol]Ordered By: Osmani Morgan on 05-20-2024 Absolute lymphocyte count 1.49 X10^3/uL 0.83-4.51 [facility] Lymphocytes/100 WBC Auto (Un sp spec)Ordered By: Osmani Morgan on 05-20-2024 Automated lymphocyte count as percentage of total leukocytes 28.8 % 19-41 [facility] MCV (RBC) [Entitic vol]Order ed By: Osmani Morgan on 05-20-2024 MCV (mean corpuscular volume) determination 92.7 fL 81-99 [facility] Mean corpuscular hemoglobin (MCH) determinationOrdered By: Osmani Morgan on 05-20-2024 Mean corpuscular hemoglobin (MCH) determination 29.2 pg 27.0-32.0 [facility] Mean corpuscular hemoglobin concentration (MCHC) determinationOrdered By: Osmani Morgan on 05-20-2024 Mean corpuscular hemoglobin concentration (MCHC) determination 31.5 g/dL Low 32-36 [facility] Mean platelet volume determi nationOrdered By: Osmani Morgan on 05-20-2024 Mean platelet volume determination 11.9 fl 6.2-12.0 [facility] Monocyte percentageOrdered B y: Osmani Morgan on 05-20-2024 Monocyte percentage 12.0 % High 0-10 [facility] Neutrophil percentageOrdered By: Osmani Morgan on 05-20-2024 Neutrophil percentage 53.9 % 47-70 [facility] No Panel InformationOrdered By: Osmani Morgan on 05-20-2024 7 U/L Low 15-37 [facility] Nucleated red blood cell per centageOrdered By: Osmani Morgan on 05-20-2024 Nucleated red blood cell percentage 0 % 0-5 [facility] Platelet countOrdered By: Fatoumata karime Cathy on 05-20-2024 Platelet count 137 K/mm3 Low 150-450 [facility] Potassium measurementOrdered By: Osmani Morgan on 05-20-2024 Potassium measurement 4.6 mmol/L 3.5-5.1 [facility] RBC Auto (Bld) [#/Vol]Ordere d By: Osmani Morgan on 05-20-2024 Automated blood erythrocyte count 2.60 M/mm3 Low 4.2-5.4 [facility] Serum anion gap measurementO rdered By: Osmani Morgan on 05-20-2024 Serum anion gap measurement 6 5-15 [facility] Serum globulin measurementOr dered By: Osmani Morgan on 05-20-2024 Serum globulin measurement 3.0 g/dL 2.2-4.2 [facility] Sodium levelOrdered By: Patrick torrezkoko Cathy on 05-20-2024 Sodium level 136 mmol/L 136-145 [facility] Total proteinOrdered By: José Antonio corazonconstatnino Morgan on 05-20-2024 Total protein 4.8 g/dL Low 6.4-8.2 [facility] Urea nitrogen [Mass/Vol]Orde red By: Osmani Morgan on 05-20-2024 Serum or plasma urea nitrogen measurement (mass/volume) 38 mg/dL High 7-18 [facility] White blood cell (WBC) count Ordered By: Osmani Morgan on 05-20-2024 White blood cell (WBC) count 5.2 K/mm3 4.4-11.0 [facility] Absolute neutrophil countOrd ered By: Rafita Monzon on 05-19-2024 Absolute neutrophil count 4.3 X10^3/uL 2.0-7.7 [facility] Basic Metabolic Profile (BMP )on 05-19-2024 BUN/CRE 7.6 RATIO Low 10-20 [facility] Comment on above: Performed By: #### L 100.0100, L500.2500 ####[facility] [address] [place], [address] CA,Total 9.0 mg/dL Normal 8.5-10.1 [facility] Comment on above: Performed By: #### L 100.0100, L500.2500 ####[facility] [address] [place], [address] Chloride [Moles/Vol] 105 mmol/L Normal 98-107 [facility] Comment on above: Performed By: #### L 100.0100, L500.2500 ####[facility] [address] [place], [address] CO2 [Moles/Vol] 25.0 mmol/L Normal 21.0-32.0 [facility] Comment on above: Performed By: #### L 100.0100, L500.2500 ####[facility] [address] [place], [address] Creatinine [Mass/Vol] 5.67 mg/dL High 0.55-1.02 [facility] Comment on above: Result Comment: The validity of the calculated GFR GFRAA in patients over70 years has not been determined. Clinical correlation isessential. Performed By: #### L 100.0100, L500.2500 ####[facility] [address] [place], [address] ECRCL 5.31 ml/min Normal [facility] Comment on above: Performed By: #### L 100.0100, L500.2500 ####[facility] [address] [place], [address] EST GFR - AA 9 mL/min Low >60 [facility] Comment on above: Result Comment: Afri can [place] GFR Calc Performed By: #### L 100.0100, L500.2500 ####[facility] [address] [place], [address] GAP 9 Normal 5-15 [facility] Comment on above: Performed By: #### L 100.0100, L500.2500 ####[facility] [address] [place], [address] GFR/1.73 sq M.predicted among non-blacks MDRD (S/P/Bld) [Vol rate/Area] 8 mL/min/{1.73_m2} Low >60 [facility] Comment on above: Result Comment: Non- GFR Calc Performed By: #### L 100.0100, L500.2500 ####[facility] [address] [place], [address] Glucose [Mass/Vol] 136 mg/dL High 74-106 [facility] Comment on above: Result Comment: Fast ing Glucose result greater than or equal to 126 mg/dLsuggests DIABETES MELLITUS per A.D.A. criteria. Performed By: #### L 100.0100, L500.2500 ####[facility] [address] [place], [address] Potassium [Moles/Vol] 5.2 mmol/L High 3.5-5.1 [facility] Comment on above: Performed By: #### L 100.0100, L500.2500 ####[facility] [address] [place], [address] Sodium [Moles/Vol] 139 mmol/L Normal 136-145 [facility] Comment on above: Performed By: #### L 100.0100, L500.2500 ####[facility] [address] [place], [address] Urea nitrogen [Mass/Vol] 43 mg/dL High 7-18 [facility] Comment on above: Performed By: #### L 100.0100, L500.2500 ####[facility] [address] [place], [address] Basophil percentageOrdered B y: Rafita Monzon on 05-19-2024 Basophil percentage 0.2 % 0-1 [facility] Blood urea nitrogen (BUN)/cr eatinine ratioOrdered By: Rafita Monzon on 05-19-2024 Blood urea nitrogen (BUN)/creatinine ratio 7.6 RATIO Low 10-20 [facility] CBC W/Diff, Automatedon 04-29 HYPOCHROMASIA 1+ Normal [facility] Comment on above: Performed By: #### L 100.0100, L500.2500 ####[facility] [address] [place], [address] Anisocytosis Ql (Bld) 2+ Normal [facility] Comment on above: Performed By: #### L 100.0100, L500.2500 ####[facility] [address] [place], [address] PLT EST ADEQUATE Normal ADEQ [facility] Comment on above: Performed By: #### L 100.0100, L500.2500 ####[facility] [address] [place], [address] Calcium [Mass/Vol]Ordered By : Rafita Monzon on 05-19-2024 Serum or plasma calcium measurement (mass/volume) 9.0 mg/dL 8.5-10.1 [facility] Carbon dioxide measurementOr dered By: Rafita Monzon on 05-19-2024 Carbon dioxide measurement 25.0 mmol/L 21.0-32.0 [facility] Chloride measurementOrdered By: Rafita Monzon on 05-19-2024 Chloride measurement 105 mmol/L 98-107 [facility] Creatinine [Mass/Vol]Ordered By: Rafita Monzon on 05-19-2024 Serum or plasma creatinine measurement (mass/volume) 5.67 mg/dL High 0.55-1.02 [facility] Eosinophil percentageOrdered By: Rafita Monzon on 05-19-2024 Eosinophil percentage 3.1 % 0-5 [facility] Erythrocyte distribution wid th (RBC) [Ratio]Ordered By: Rafita Monzon on 05-19-2024 Erythrocyte distribution width ratio 19.4 % High 11.6-14.6 [facility] Erythrocyte distribution width standard deviation 66.3 fl High 35.1-43.9 [facility] Estimated glomerular filtrat ion rate (GFR) AmericanOrdered By: Rafita Monzon on 05-19-2024 Estimated glomerular filtration rate (GFR) 9 mL/min Low >60 [facility] Estimation of creatinine clay aranceOrdered By: Rafita Monzon on 05-19-2024 Estimation of creatinine clearance 5.31 ml/min [facility] Glomerular filtration rate ( GFR) estimationOrdered By: Rafita Monzon on 05-19-2024 Glomerular filtration rate (GFR) estimation 8 mL/min Low >60 [facility] Glucose measurementOrdered B y: Rafita Monzon on 05-19-2024 Glucose measurement 136 mg/dL High 74-106 [facility] Hematocrit Auto (Bld) [Volum e fraction]Ordered By: Rafita Monzon on 05-19-2024 Automated blood hematocrit (percentage) 23.7 % Low 37-47 [facility] Hemoglobin measurementOrdere d By: Rafita Monzon on 05-19-2024 Hemoglobin measurement 7.5 g/dL Low 12.0-15.0 [facility] Hypochromia Ql (Bld)Ordered By: Rafita Monzon on 05-19-2024 Hypochromatic red blood cell detection 1+ [facility] Immature granulocytes/100 WB C Auto (Bld)Ordered By: Rafita Monzon on 05-19-2024 Automated immature granulocyte percentage 0.800 % 0.0-0.9 [facility] Lymphocytes Auto (Unsp spec) [#/Vol]Ordered By: Rafita Monzon on 05-19-2024 Absolute lymphocyte count 1.18 X10^3/uL 0.83-4.51 [facility] Lymphocytes/100 WBC Auto (Un sp spec)Ordered By: Rafita Monzon on 05-19-2024 Automated lymphocyte count as percentage of total leukocytes 18.2 % Low 19-41 [facility] MCV (RBC) [Entitic vol]Order ed By: Rafita Monzon on 05-19-2024 MCV (mean corpuscular volume) determination 93.7 fL 81-99 [facility] MR/PN.GIon 05-19-2024 MR/PN.GI Normal [facility] Mean corpuscular hemoglobin (MCH) determinationOrdered By: Rafita Monzon on 05-19-2024 Mean corpuscular hemoglobin (MCH) determination 29.6 pg 27.0-32.0 [facility] Mean corpuscular hemoglobin concentration (MCHC) determinationOrdered By: Rafita Monzon on 05-19-2024 Mean corpuscular hemoglobin concentration (MCHC) determination 31.6 g/dL Low 32-36 [facility] Mean platelet volume determi nationOrdered By: Rafita Monzon on 05-19-2024 Mean platelet volume determination 11.3 fl 6.2-12.0 [facility] Monocyte percentageOrdered B y: Rafita Monzon on 05-19-2024 Monocyte percentage 11.4 % High 0-10 [facility] Neutrophil percentageOrdered By: Rafita Monzon on 05-19-2024 Neutrophil percentage 66.3 % 47-70 [facility] No Panel InformationOrdered By: Rafita Monzon on 05-19-2024 2+ [facility] Nucleated red blood cell per centageOrdered By: Rafita Monzon on 05-19-2024 Nucleated red blood cell percentage 0 % 0-5 [facility] Platelet countOrdered By: Jorge Luis Monzon on 05-19-2024 Platelet count 128 K/mm3 Low 150-450 [facility] Platelets LM Ql (Bld)Ordered By: Rafita Monzon on 05-19-2024 Platelet estimate ADEQUATE ADEQ [facility] Potassium measurementOrdered By: Rafita Monzon on 05-19-2024 Potassium measurement 5.2 mmol/L High 3.5-5.1 [facility] RBC Auto (Bld) [#/Vol]Ordere d By: Rafita Monzon on 05-19-2024 Automated blood erythrocyte count 2.53 M/mm3 Low 4.2-5.4 [facility] Serum anion gap measurementO rdered By: Rafita Monzon on 05-19-2024 Serum anion gap measurement 9 5-15 [facility] Sodium levelOrdered By: Adrian Monzon on 05-19-2024 Sodium level 139 mmol/L 136-145 [facility] Urea nitrogen [Mass/Vol]Orde red By: Rafita Monzon on 05-19-2024 Serum or plasma urea nitrogen measurement (mass/volume) 43 mg/dL High 7-18 [facility] White blood cell (WBC) count Ordered By: Rafita Monzon on 05-19-2024 White blood cell (WBC) count 6.5 K/mm3 4.4-11.0 [facility] Basic Metabolic Profile (BMP )on 05-18-2024 BUN/CRE 7.7 RATIO Low 10-20 [facility] Comment on above: Performed By: #### L 500.2500, L100.0100 ####[facility] [address] [place], [address] CA,Total 8.9 mg/dL Normal 8.5-10.1 [facility] Comment on above: Performed By: #### L 500.2500, L100.0100 ####[facility] [address] [place], [address] Chloride [Moles/Vol] 108 mmol/L High 98-107 [facility] Comment on above: Performed By: #### L 500.2500, L100.0100 ####[facility] [address] [place], [address] CO2 [Moles/Vol] 24.0 mmol/L Normal 21.0-32.0 [facility] Comment on above: Performed By: #### L 500.2500, L100.0100 ####[facility] [address] [place], [address] Creatinine [Mass/Vol] 4.16 mg/dL High 0.55-1.02 [facility] Comment on above: Result Comment: The validity of the calculated GFR GFRAA in patients over70 years has not been determined. Clinical correlation isessential. Performed By: #### L 500.2500, L100.0100 ####[facility] [address] [place], [address] ECRCL 7.23 ml/min Normal [facility] Comment on above: Performed By: #### L 500.2500, L100.0100 ####[facility] [address] [place], [address] EST GFR - AA 13 mL/min Low >60 [facility] Comment on above: Result Comment: Afri can [place] GFR Calc Performed By: #### L 500.2500, L100.0100 ####[facility] [address] [place], [address] GAP 8 Normal 5-15 [facility] Comment on above: Performed By: #### L 500.2500, L100.0100 ####[facility] [address] [place], [address] GFR/1.73 sq M.predicted among non-blacks MDRD (S/P/Bld) [Vol rate/Area] 11 mL/min/{1.73_m2} Low >60 [facility] Comment on above: Result Comment: Non- GFR Calc Performed By: #### L 500.2500, L100.0100 ####[facility] [address] [place], [address] Glucose [Mass/Vol] 123 mg/dL High 74-106 [facility] Comment on above: Result Comment: Fast ing Glucose result from 100 to 125 mg/dLsuggests IMPAIRED HOMEOSTASIS per A.D.A. criteria. Performed By: #### L 500.2500, L100.0100 ####[facility] [address] [place], [address] Potassium [Moles/Vol] 4.7 mmol/L Normal 3.5-5.1 [facility] Comment on above: Performed By: #### L 500.2500, L100.0100 ####[facility] [address] [place], [address] Sodium [Moles/Vol] 140 mmol/L Normal 136-145 [facility] Comment on above: Performed By: #### L 500.2500, L100.0100 ####[facility] [address] [place], [address] Urea nitrogen [Mass/Vol] 32 mg/dL High 7-18 [facility] Comment on above: Performed By: #### L 500.2500, L100.0100 ####[facility] [address] [place], [address] CBC W/Diff, Automatedon 04-29 Anisocytosis Ql (Bld) 1+ Normal [facility] Comment on above: Performed By: #### L 500.2500, L100.0100 ####[facility] [address] [place], [address] EGD Reporton 05-18-2024 EGD Report Normal [facility] H Pylori (initial)on 025 H Pylori (initial) Normal [facility] Comment on above: Performed By: #### P H.PYLORI ####[facility] [address] [place], [address] MR/PN.GIon 05-18-2024 MR/PN.GI Normal [facility] MR/POSTOP.ANEon 05-18-2024 MR/POSTOP.ANE Normal [facility] MR/EAMIMQEB7dm 05-18-2024 MR/POSTOPAN2 Normal [facility] Special Stain Group Ion 04-29 Special Stain Group I Normal [facility] Comment on above: Performed By: #### P SSI ####[facility] [address] [place], [address] Venous Duplex US - Neal Extre mon 05-18-2024 Venous Duplex US - Neal Extrem Normal [facility] Basic Metabolic Profile (BMP )on 05-17-2024 BUN/CRE 8.5 RATIO Low 10-20 [facility] Comment on above: Performed By: #### L 100.0100, L500.2500 ####[facility] [address] [place], [address] CA,Total 8.3 mg/dL Low 8.5-10.1 [facility] Comment on above: Performed By: #### L 100.0100, L500.2500 ####[facility] [address] [place], [address] Chloride [Moles/Vol] 102 mmol/L Normal 98-107 [facility] Comment on above: Performed By: #### L 100.0100, L500.2500 ####[facility] [address] [place], [address] CO2 [Moles/Vol] 24.0 mmol/L Normal 21.0-32.0 [facility] Comment on above: Performed By: #### L 100.0100, L500.2500 ####[facility] [address] [place], [address] Creatinine [Mass/Vol] 5.74 mg/dL High 0.55-1.02 [facility] Comment on above: Result Comment: The validity of the calculated GFR GFRAA in patients over70 years has not been determined. Clinical correlation isessential. Performed By: #### L 100.0100, L500.2500 ####[facility] [address] [place], [address] ECRCL 5.24 ml/min Normal [facility] Comment on above: Performed By: #### L 100.0100, L500.2500 ####[facility] [address] [place], [address] EST GFR - AA 9 mL/min Low >60 [facility] Comment on above: Result Comment: Afri can [place] GFR Calc Performed By: #### L 100.0100, L500.2500 ####[facility] [address] [place], [address] GAP 8 Normal 5-15 [facility] Comment on above: Performed By: #### L 100.0100, L500.2500 ####[facility] [address] [place], [address] GFR/1.73 sq M.predicted among non-blacks MDRD (S/P/Bld) [Vol rate/Area] 8 mL/min/{1.73_m2} Low >60 [facility] Comment on above: Result Comment: Non- GFR Calc Performed By: #### L 100.0100, L500.2500 ####[facility] [address] [place], [address] Glucose [Mass/Vol] 98 mg/dL Normal 74-106 [facility] Comment on above: Performed By: #### L 100.0100, L500.2500 ####[facility] [address] [place], [address] Potassium [Moles/Vol] 5.8 mmol/L High 3.5-5.1 [facility] Comment on above: Performed By: #### L 100.0100, L500.2500 ####[facility] [address] [place], [address] Sodium [Moles/Vol] 134 mmol/L Low 136-145 [facility] Comment on above: Performed By: #### L 100.0100, L500.2500 ####[facility] [address] [place], [address] Urea nitrogen [Mass/Vol] 49 mg/dL High 7-18 [facility] Comment on above: Performed By: #### L 100.0100, L500.2500 ####[facility] [address] [place], [address] CBC W/Diff, Automatedon 01-2 0-2024 Absolute Lymph 1.20 X10 3/uL Normal 0.83-4.51 [facility] Comment on above: Performed By: #### L 100.0100, L500.2500 ####[facility] [address] [place], [address] Absolute Neut 4.8 X10 3/uL Normal 2.0-7.7 [facility] Comment on above: Performed By: #### L 100.0100, L500.2500 ####[facility] [address] [place], [address] Basophils/100 WBC (Bld) 0.1 % Normal 0-[address] [facility] Comment on above: Performed By: #### L 100.0100, L500.2500 ####[facility] [address] [place], [address] Eosinophils/100 WBC (Bld) 2.7 % Normal 0-5 [facility] Comment on above: Performed By: #### L 100.0100, L500.2500 ####[facility] [address] [place], [address] Erythrocyte distribution width (RBC) [Ratio] 17.8 % High 11.6-14.6 [facility] Comment on above: Performed By: #### L 100.0100, L500.2500 ####[facility] [address] [place], [address] Hematocrit (Bld) [Volume fraction] 20.5 % Low 37-47 [facility] Comment on above: Performed By: #### L 100.0100, L500.2500 ####[facility] [facility] [address] [place], [address] Hemoglobin (Bld) [Mass/Vol] 6.4 g/dL Low 12.0-15.0 [facility] Comment on above: Performed By: #### L 100.0100, L500.2500 ####[facility] [address] [place], [address] IG% 0.700 Normal 0.0-0.9 [facility] Comment on above: Result Comment: IG% - Immature Granulocytes (promyelocytes, myelocytes andmetamyelocytes) > 1% indicates that a LEFT SHIFT is Present. Performed By: #### L 100.0100, L500.2500 ####[facility] [address] [place], [address] Lymphocytes/100 WBC (Bld) 17.4 % Low 19-41 [facility] Comment on above: Performed By: #### L 100.0100, L500.2500 ####[facility] [address] [place], [address] MCH (RBC) [Entitic mass] 30.3 pg Normal 27.0-32.0 [facility] Comment on above: Performed By: #### L 100.0100, L500.2500 ####[facility] [address] [place], [address] MCHC (RBC) [Mass/Vol] 31.2 g/dL Low 32-36 [facility] Comment on above: Performed By: #### L 100.0100, L500.2500 ####[facility] [address] [place], [address] MCV (RBC) [Entitic vol] 97.2 fL Normal 81-99 [facility] Comment on above: Performed By: #### L 100.0100, L500.2500 ####[facility] [address] [place], [address] Monocytes/100 WBC (Bld) 9.4 % Normal 0-10 [facility] Comment on above: Performed By: #### L 100.0100, L500.2500 ####[facility] [address] [place], [address] Neutrophils/100 WBC (Bld) 69.7 % Normal 47-70 [facility] Comment on above: Performed By: #### L 100.0100, L500.2500 ####[facility] [address] [place], [address] Nucleated RBC (Bld) [#/Vol] 0 10*3/uL Normal 0-5 [facility] Comment on above: Performed By: #### L 100.0100, L500.2500 ####[facility] [address] [place], [address] Platelet mean volume (Bld) [Entitic vol] 11.8 fL Normal 6.2-12.0 [facility] Comment on above: Performed By: #### L 100.0100, L500.2500 ####[facility] [address] [place], [address] Platelets (Bld) [#/Vol] 125 10*3/uL Low 150-450 [facility] Comment on above: Performed By: #### L 100.0100, L500.2500 ####[facility] [address] [place], [address] RBC (Bld) [#/Vol] 2.11 10*6/uL Low 4.2-5.4 [facility] Comment on above: Performed By: #### L 100.0100, L500.2500 ####[facility] [address] [place], [address] RDW SD 62.3 fl High 35.1-43.9 [facility] Comment on above: Performed By: #### L 100.0100, L500.2500 ####[facility] [address] [place], [address] WBC (Bld) [#/Vol] 6.9 10*3/uL Normal 4.4-11.0 [facility] Comment on above: Performed By: #### L 100.0100, L500.2500 ####[facility] [address] [place], [address] Consultation - Cardiologyon 05-17-2024 Consultation - Cardiology Normal [facility] HH, Hemoglobin AND Hematocri ton 05-17-2024 Hematocrit (Bld) [Volume fraction] 30.3 % Low 37-47 [facility] Comment on above: Order Comment: Comme nts: 1 hr after blood transfusion done Performed By: #### L 100.0600 ####[facility] [address] [place], [address] Hemoglobin (Bld) [Mass/Vol] 9.9 g/dL Low 12.0-15.0 [facility] Comment on above: Order Comment: Comme nts: 1 hr after blood transfusion done Performed By: #### L 100.0600 ####[facility] [address] [place], [address] HCT Normal 37-47 [facility] Comment on above: Result Comment: Canc elled via OM: Order edited - Discontinuing original order Performed By: #### L 100.0600 ####[facility] [address] [place], [address] HGB Normal 12.0-15.0 [facility] Comment on above: Result Comment: Canc elled via OM: Order edited - Discontinuing original order Performed By: #### L 100.0600 ####[facility] [address] [place], [address] MR/CON.PCM.GIon 05-17-2024 MR/CON.PCM.GI Normal [facility] Magnesiumon 05-17-2024 Magnesium [Mass/Vol] 2.0 mg/dL Normal 1.6-2.6 [facility] Comment on above: Performed By: #### L 501.2300, L501.5200 ####[facility] [address] [place], [address] Magnesium measurementOrdered By: Rafita Monzon on 05-17-2024 Magnesium measurement 2.0 mg/dL 1.6-2.6 [facility] Phosphoruson 05-17-2024 Phosphate [Mass/Vol] 6.7 mg/dL High 2.5-4.9 [facility] Comment on above: Performed By: #### L 501.2300, L501.5200 ####[facility] [address] [place], [address] Phosphorus measurementOrdere d By: Rafita Monzon on 05-17-2024 Phosphorus measurement 6.7 mg/dL High 2.5-4.9 [facility] Stool Occult Blood iFOBon STOB Normal [facility] Comment on above: Performed By: #### M 100.7900 ####[facility] [address] [place], [address] Urine Cultureon 05-17-2024 URC Culture exhibits no growth. Normal [facility] Comment on above: Performed By: #### M 100.2200, L400.0001 ####[facility] [address] [place], [address] Basic Metabolic Profile (BMP )on 05-16-2024 BUN/CRE 8.5 RATIO Low 10-20 [facility] Comment on above: Performed By: #### L 500.2500, L100.0100 ####[facility] [address] [place], [address] CA,Total 8.7 mg/dL Normal 8.5-10.1 [facility] Comment on above: Performed By: #### L 500.2500, L100.0100 ####[facility] [address] [place], [address] Chloride [Moles/Vol] 102 mmol/L Normal 98-107 [facility] Comment on above: Performed By: #### L 500.2500, L100.0100 ####[facility] [address] [place], [address] CO2 [Moles/Vol] 28.0 mmol/L Normal 21.0-32.0 [facility] Comment on above: Performed By: #### L 500.2500, L100.0100 ####[facility] [address] [place], [address] Creatinine [Mass/Vol] 4.25 mg/dL High 0.55-1.02 [facility] Comment on above: Result Comment: The validity of the calculated GFR GFRAA in patients over70 years has not been determined. Clinical correlation isessential. Performed By: #### L 500.2500, L100.0100 ####[facility] [address] [place], [address] ECRCL 7.08 ml/min Normal [facility] Comment on above: Performed By: #### L 500.2500, L100.0100 ####[facility] [address] [place], [address] EST GFR - AA 13 mL/min Low >60 [facility] Comment on above: Result Comment: Afri can [place] GFR Calc Performed By: #### L 500.2500, L100.0100 ####[facility] [address] [place], [address] GAP 6 Normal 5-15 [facility] Comment on above: Performed By: #### L 500.2500, L100.0100 ####[facility] [address] [place], [address] GFR/1.73 sq M.predicted among non-blacks MDRD (S/P/Bld) [Vol rate/Area] 11 mL/min/{1.73_m2} Low >60 [facility] Comment on above: Result Comment: Non- GFR Calc Performed By: #### L 500.2500, L100.0100 ####[facility] [address] [place], [address] Glucose [Mass/Vol] 103 mg/dL Normal 74-106 [facility] Comment on above: Result Comment: Fast ing Glucose result from 100 to 125 mg/dLsuggests IMPAIRED HOMEOSTASIS per A.D.A. criteria. Performed By: #### L 500.2500, L100.0100 ####[facility] [address] [place], [address] Potassium [Moles/Vol] 5.3 mmol/L High 3.5-5.1 [facility] Comment on above: Performed By: #### L 500.2500, L100.0100 ####[facility] [address] [place], [address] Sodium [Moles/Vol] 136 mmol/L Normal 136-145 [facility] Comment on above: Performed By: #### L 500.2500, L100.0100 ####[facility] [address] [place], [address] Urea nitrogen [Mass/Vol] 36 mg/dL High 7-18 [facility] Comment on above: Performed By: #### L 500.2500, L100.0100 ####[facility] [address] [place], [address] CBC W/Diff, Automatedon 04-28 Anisocytosis Ql (Bld) 1+ Normal [facility] Comment on above: Performed By: #### L 500.2500, L100.0100 ####[facility] [address] [place], [address] HYPOCHROMASIA 1+ Normal [facility] Comment on above: Performed By: #### L 500.2500, L100.0100 ####[facility] [address] [place], [address] Clarity (U)Ordered By: Alex Monzon on 05-16-2024 Urine clarity Turbid Clear [facility] Color (U)Ordered By: Rafita Monzon on 05-16-2024 Urine color determination RED Yellow [facility] Microscopic analysis of urin e for red blood cells (RBC)Ordered By: Rafita Monzon on 05-16-2024 Microscopic analysis of urine for red blood cells (RBC) > 100 SEEN /hpf 0-5 [facility] Protein Test strip Ql (U)Ord ered By: Rafita Monzon on 05-16-2024 Urine protein assay by test strip, semi-quantitative 500 mg/dl High Negative [facility] Specific gravity (U) [Rel de nsity]Ordered By: Rafita Monzon on 05-16-2024 Urine specific gravity measurement 1.015 1.002-1.030 [facility] Squamous epithelial cells de tection in urine sediment by light microscopyOrdered By: Rafita Monzon on 05-16-2024 Squamous epithelial cells detection in urine sediment by light microscopy 0 SEEN /hpf [facility] Urinalysis, Completeon 05-16 RBC > 100 SEEN Normal 0-5 [facility] Comment on above: Order Comment: Urine , Random Performed By: #### M 100.2200, L400.0001 ####[facility] [address] [place], [address] WBC 10-25 SEEN Normal [address] [place] [address] Comment on above: Order Comment: Urine , Random Performed By: #### M 100.2200, L400.0001 ####[facility] [address] [place], [address] BACTERIA 0 SEEN Normal None Seen [facility] Comment on above: Order Comment: Urine , Random Performed By: #### M 100.2200, L400.0001 ####[facility] [address] [place], [address] EPI,SQUAMOUS 0 SEEN Normal 5-10 [facility] Comment on above: Order Comment: Urine , Random Performed By: #### M 100.2200, L400.0001 ####[facility] [address] [place], [address] Mucus Ql (Urine sed) 0 SEEN Normal [facility] Comment on above: Order Comment: Urine , Random Performed By: #### M 100.2200, L400.0001 ####[facility] [address] [place], [address] Urine Cultureon 05-16-2024 URC Culture exhibits no growth. Normal [facility] Comment on above: Performed By: #### L 400.0001, M100.2200 ####[facility] [address] [place], [address] Urine blood detectionOrdered By: Rafita Monzon on 05-16-2024 Urine blood detection TNP [facility] Urine cultureOrdered By: Magaly Monzon on 05-16-2024 Urine culture Culture exhibits no growth. [facility] Urine glucose detectionOrder ed By: Rafita Monzon on 05-16-2024 Urine glucose detection Normal mg/dl Normal [facility] Urine total bilirubin detect ion by test stripOrdered By: Rafita Monzon on 05-16-2024 Urine total bilirubin detection by test strip Negative Negative [facility] White blood cell countOrdere d By: Rafita Monzon on 05-16-2024 White blood cell count 10-25 SEEN /hpf 0-5 [facility] pH (U)Ordered By: Rafita Taylor and on 05-16-2024 Urine pH 8.0 5.0 - 8.0 [facility] BNP (brain natriuretic pepti de measurement)Ordered By: Sanchez Hernandez on 05-15-2024 BNP (brain natriuretic peptide measurement) > 5000.0 pg/mL High 0-100 [facility] BNP,B-Type NATRIURETIC PEPTI Candis 05-15-2024 Natriuretic peptide B (Bld) [Mass/Vol] pg/mL High 0-100 [facility] Comment on above: Order Comment: OKAY TO ADD ON PER MEL Performed By: #### L 503.6620 ####[facility] [address] [place], [address] BRCon 05-15-2024 RC Normal [facility] Comment on above: Result Comment: [id number] OP RC TRANSFUSED 05/17/24 1038 Performed By: #### B RC ####[facility] [address] [place], [place], [address] Result Comment: [id number] OP RC TRANSFUSED 05/15/24 1601 Chest 1 View (Portable)on Chest 1 View (Portable) Normal [facility] Consultation - Nephrologyon 05-15-2024 Consultation - Nephrology Normal [facility] Echo Completeon 05-15-2024 Echo Complete Normal [facility] H AND P Exam - Hospitaliston 05-15-2024 H&P Exam - Hospitalist Normal [facility] HH, Hemoglobin AND Hematocri ton 05-15-2024 Hematocrit (Bld) [Volume fraction] 23.0 % Low 37-47 [facility] Comment on above: Order Comment: Comme nts: Posttransfusion Performed By: #### L 100.0600 ####[facility] [address] [place], [address] Hemoglobin (Bld) [Mass/Vol] 7.3 g/dL Low 12.0-15.0 [facility] Comment on above: Order Comment: Comme nts: Posttransfusion Performed By: #### L 100.0600 ####[facility] [address] [place], [address] L501.4020on 05-15-2024 TROPONIN-I HS 814 pg/mL Invalid Interpretation Code 3.0-54.0 [facility] Comment on above: Order Comment: 'TROP ' Serial specimen #1, #2 or #3: 2 Result Comment: [place] Result(s) Called at: 04:19:58 05/15/2024 by: Joyce. to Cassandra CHAPERONE. Results read back by same. Please Note: New Test Units and Gender Specific Reference Ranges. For more information see Policy Stat Procedure [place] High Sensitivity Troponin (TNIH) and attachments. Performed By: #### L 501.4020 ####[facility] [address] [place], [place], [address] TROPONIN-I HS 418 pg/mL Invalid Interpretation Code 3.0-54.0 [facility] Comment on above: Order Comment: 'TROP ' Serial specimen #1, #2 or #3: 2 Result Comment: Crit ical Result(s) Called at: 00:11:47 05/15/2024 by: Joyce. to Cassandra [facility]. Results read back by same. Please Note: New Test Units and Gender Specific Reference Ranges. For more information see Policy Stat Procedure [place] High Sensitivity Troponin (TNIH) and attachments. Performed By: #### L 501.4020 ####[facility] [address] [place], [address] Lactic Acidon 05-15-2024 Lactate [Moles/Vol] 1.1 mmol/L Normal 0.4-1.9 [facility] Comment on above: Performed By: #### L 503.6005 ####[facility] [address] [place], [address] Lactic acid measurementOrder ed By: Christopher Bills on 05-15-2024 Lactic acid measurement 1.1 mmol/L 0.4-2.[address] [facility] Lipid Profileon 05-15-2024 Cholesterol [Mass/Vol] 149 mg/dL Normal 200 [facility] Comment on above: Result Comment: <200 mg/dL Desirable 200-240 mg/dL Borderline >240 mg/dL High Risk Performed By: #### L 500.4100 ####[facility] [address] [place], [address] Cholesterol in HDL [Mass/Vol] 54 mg/dL Normal [facility] Comment on above: Result Comment: The drugs N-Acetylcysteine and Metamizole may falselydepress this assay. Reference Range HDL <40 mg/dL Low HDL Cholesterol HDL >or= 60 mg/dL High HDL Cholesterol Performed By: #### L 500.4100 ####[facility] [address] [place], [address] Cholesterol in LDL [Mass/Vol] 69 mg/dL Normal 0-130 [facility] Comment on above: Performed By: #### L 500.4100 ####[facility] [address] [place], [place], [address] Cholesterol in VLDL [Mass/Vol] 26 mg/dL Normal 5-40 [facility] Comment on above: Performed By: #### L 500.4100 ####[facility] [address] [place], [place], [address] Triglyceride [Mass/Vol] 130 mg/dL Normal [facility] Comment on above: Result Comment: The drugs N-Acetylcysteine and Metamizole may falselydepress this assay.Serum Triglycerides Reference Interval Normal <150 mg/dL Borderline high 150 - 199 mg/dL High 200 - 499 mg/dL Very High > or = 500 mg/dL Performed By: #### L 500.4100 ####[facility] [address] [place], [place], [id number] Lower GI hemoglobin IA Ql (S tl)Ordered By: Sanchez Hernandez on 05-15-2024 Stool gastrointestinal hemoglobin detection by immunologic method Positive Abnormal [facility] TSH QnOrdered By: Sanchez viera on 05-15-2024 Serum or plasma thyroid stimulating hormone (TSH) measurement (units/volume) 1.920 uIU/mL 0.358-3.740 [facility] Thyroid Stim Hormone (TSH)on 05-15-2024 TSH 1.920 uIU/mL Normal 0.358-3.740 [facility] Comment on above: Performed By: #### L 501.9503 ####[facility] [address] [place], [place], [address] Troponin IOrdered By: Sanchez Hernandez on 05-15-2024 Troponin I 814 pg/mL High 3.0-54.0 [facility] Type AND Screenon 05-15-2024 Ab SCREEN GEL Negative Normal [facility] Comment on above: Order Comment: A Performed By: #### B TS ####[facility] [address] [place], [place], [address] Urinalysis, Completeon 05-15 BACTERIA 3+ /hpf Normal None Seen [facility] Comment on above: Order Comment: COLOR OF URINE MAY AFFECT DIPSTICK RESULTS.CLEAN CATCH Result Comment: ER C OLLECTED WRONG PATIENT Performed By: #### L 400.0001, M100.0 ####[facility] [address] [place], [address] RBC > 100 SEEN Normal 0-5 [facility] Comment on above: Order Comment: COLOR OF URINE MAY AFFECT DIPSTICK RESULTS.CLEAN CATCH Result Comment: ER C OLLECTED WRONG PATIENT Performed By: #### L 400.0001, M100.2200 ####[facility] [address] [place], [address] WBC 0-5 SEEN Normal 0-5 [facility] Comment on above: Order Comment: COLOR OF URINE MAY AFFECT DIPSTICK RESULTS.CLEAN CATCH Result Comment: ER C OLLECTED WRONG PATIENT Performed By: #### L 400.0001, .2199 ####[facility] [address] [place], [address] EPI,SQUAMOUS 0 SEEN Normal 5-10 [facility] Comment on above: Order Comment: COLOR OF URINE MAY AFFECT DIPSTICK RESULTS.CLEAN CATCH Result Comment: ER C OLLECTED WRONG PATIENT Performed By: #### L 400.0001, M100.0 ####[facility] [address] [place], [address] Mucus Ql (Urine sed) 0 SEEN Normal [facility] Comment on above: Order Comment: COLOR OF URINE MAY AFFECT DIPSTICK RESULTS.CLEAN CATCH Result Comment: ER C OLLECTED WRONG PATIENT Performed By: #### L 400.0001, M100.2200 ####[facility] [address] [place], [address] Urine cultureOrdered By: Aubrie Bills on 05-15-2024 Urine culture Culture exhibits no growth. [facility] BNP,B-Type NATRIURETIC PEPTI Candis 05-14-2024 Natriuretic peptide B (Bld) [Mass/Vol] 2372.8 pg/mL High 0-100 [facility] Comment on above: Performed By: #### L 503.6620 ####[facility] [address] [place], [address] Base excess Calc (BldV) [Mol es/Vol]Ordered By: Christopher Bills on 05-14-2024 Blood base excess determination 7 mmol/L High -2-2 [facility] Basic Metabolic Profile (BMP )on 05-14-2024 BUN/CRE 8.1 RATIO Low 10-20 [facility] Comment on above: Order Comment: 'TROP ' Serial specimen #1, #2 or #3: 1 Performed By: #### L 500.2500, L501.4020, L100.0100 ####[facility] [address] [place], [address] CA,Total 9.2 mg/dL Normal 8.5-10.1 [facility] Comment on above: Order Comment: 'TROP ' Serial specimen #1, #2 or #3: 1 Performed By: #### L 500.2500, L501.4020, L100.0100 ####[facility] [address] [place], [address] Chloride [Moles/Vol] 101 mmol/L Normal 98-107 [facility] Comment on above: Order Comment: 'TROP ' Serial specimen #1, #2 or #3: 1 Performed By: #### L 500.2500, L501.4020, L100.0100 ####[facility] [address] [place], [address] CO2 [Moles/Vol] 30.0 mmol/L Normal 21.0-32.0 [facility] Comment on above: Order Comment: 'TROP ' Serial specimen #1, #2 or #3: 1 Performed By: #### L 500.2500, L501.4020, L100.0100 ####[facility] [address] [place], [address] Creatinine [Mass/Vol] 2.59 mg/dL High 0.55-1.02 [facility] Comment on above: Order Comment: 'TROP ' Serial specimen #1, #2 or #3: 1 Result Comment: The validity of the calculated GFR GFRAA in patients over70 years has not been determined. Clinical correlation isessential. Performed By: #### L 500.2500, L501.4020, L100.0100 ####[facility] [address] [place], [address] ECRCL 11.61 ml/min Normal [facility] Comment on above: Order Comment: 'TROP ' Serial specimen #1, #2 or #3: 1 Performed By: #### L 500.2500, L501.4020, L100.0100 ####[facility] [address] [place], [address] EST GFR - AA 23 mL/min Low >60 [facility] Comment on above: Order Comment: 'TROP ' Serial specimen #1, #2 or #3: 1 Result Comment: Afri can [place] GFR Calc Performed By: #### L 500.2500, L501.4020, L100.0100 ####[facility] [address] [place], [address] GAP 8 Normal 5-15 [facility] Comment on above: Order Comment: 'TROP ' Serial specimen #1, #2 or #3: 1 Performed By: #### L 500.2500, L501.4020, L100.0100 ####[facility] [address] [place], [address] GFR/1.73 sq M.predicted among non-blacks MDRD (S/P/Bld) [Vol rate/Area] 19 mL/min/{1.73_m2} Low >60 [facility] Comment on above: Order Comment: 'TROP ' Serial specimen #1, #2 or #3: 1 Result Comment: Non- GFR Calc Performed By: #### L 500.2500, L501.4020, L100.0100 ####[facility] [address] [place], [address] Glucose [Mass/Vol] 271 mg/dL High 74-106 [facility] Comment on above: Order Comment: 'TROP ' Serial specimen #1, #2 or #3: 1 Result Comment: Gluc ose result greater than or equal to 200 mg/dLsuggests DIABETES MELLITUS per A.D.A. criteria. Performed By: #### L 500.2500, L501.4020, L100.0100 ####[facility] [address] [place], [address] Potassium [Moles/Vol] 4.2 mmol/L Normal 3.5-5.1 [facility] Comment on above: Order Comment: 'TROP ' Serial specimen #1, #2 or #3: 1 Performed By: #### L 500.2500, L501.4020, L100.0100 ####[facility] [address] [place], [address] Sodium [Moles/Vol] 139 mmol/L Normal 136-145 [facility] Comment on above: Order Comment: 'TROP ' Serial specimen #1, #2 or #3: 1 Performed By: #### L 500.2500, L501.4020, L100.0100 ####[facility] [address] [place], [address] Urea nitrogen [Mass/Vol] 21 mg/dL High 7-18 [facility] Comment on above: Order Comment: 'TROP ' Serial specimen #1, #2 or #3: 1 Performed By: #### L 500.2500, L501.4020, L100.0100 ####[facility] [address] [place], [address] Blood Gases by [facility] 025 Base excess Calc (Bld) [Moles/Vol] 7 mmol/L High -2 to +2 [facility] Comment on above: Performed By: #### L 9000.0800 ####[facility] [address] [place], [address] Blood Gas Type ART Normal [facility] Comment on above: Performed By: #### L 8999.0800 ####[facility] [address] [place], [address] CO2 [Moles/Vol] 35 mmol/L Normal [facility] Comment on above: Performed By: #### L 8999.0800 ####[facility] [address] [place], [address] FI02 2.0 Normal [facility] Comment on above: Performed By: #### L 8999.0800 ####[facility] [address] [place], [address] HCO3 (Bld) [Moles/Vol] 32.8 mmol/L High 22-[address] [facility] Comment on above: Performed By: #### L 8999.0800 ####[facility] [address] [place], [address] Mode Not entered Normal [facility] Comment on above: Performed By: #### L 8999.0800 ####[facility] [address] [place], [address] O2 Delivery Dev Cannula Normal [facility] Comment on above: Performed By: #### L 8999.0800 ####[facility] [address] [place], [address] pCO2 57.7 mmHg High 35-45 [facility] Comment on above: Performed By: #### L 8999.0800 ####[facility] [address] [place], [address] pH (Bld) 7.36 [pH] Normal 7.35-7.45 [facility] Comment on above: Performed By: #### L 0.0800 ####[facility] [address] [place], [address] PO2 109 mmHG High 75-100 [facility] Comment on above: Performed By: #### L 9000.0800 ####[facility] [address] [place], [address] SITE R Radial Normal [facility] Comment on above: Performed By: #### L 0.0800 ####[facility] [address] [place], [address] SO2 98 Normal 95-99 [facility] Comment on above: Performed By: #### L 9000.0800 ####[facility] [address] [place], [address] Blood bicarbonate measuremen tOrdered By: Christopher Bills on 05-14-2024 Blood bicarbonate measurement 32.8 mmol/L High 22-26 [facility] Blood cultureOrdered By: Aubrie Bills on 05-14-2024 Blood culture No growth in [address] [facility] CBC W/Diff, Automatedon 04-28 Absolute Lymph 1.16 X10 3/uL Normal 0.83-4.51 [facility] Comment on above: Performed By: #### L 500.2500, L501.4020, L100.0100 ####[facility] [address] [place], [address] Absolute Neut 3.0 X10 3/uL Normal 2.0-7.7 [facility] Comment on above: Performed By: #### L 500.2500, L501.4020, L100.0100 ####[facility] [address] [place], [address] Basophils/100 WBC (Bld) 0.4 % Normal 0-[address] [facility] Comment on above: Performed By: #### L 500.2500, L501.4020, L100.0100 ####[facility] [address] [place], [address] Eosinophils/100 WBC (Bld) 4.0 % Normal 0-5 [facility] Comment on above: Performed By: #### L 500.2500, L501.4020, L100.0100 ####[facility] [address] [place], [address] Erythrocyte distribution width (RBC) [Ratio] 17.0 % High 11.6-14.6 [facility] Comment on above: Performed By: #### L 500.2500, L501.4020, L100.0100 ####[facility] [address] [place], [address] Hematocrit (Bld) [Volume fraction] 23.7 % Low 37-47 [facility] Comment on above: Performed By: #### L 500.2500, L501.4020, L100.0100 ####[facility] [address] [place], [address] Hemoglobin (Bld) [Mass/Vol] 7.4 g/dL Low 12.0-15.0 [facility] Comment on above: Performed By: #### L 500.2500, L501.4020, L100.0100 ####[facility] [address] [place], [address] IG% 1.100 High 0.0-0.9 [facility] Comment on above: Result Comment: IG% - Immature Granulocytes (promyelocytes, myelocytes andmetamyelocytes) > 1% indicates that a LEFT SHIFT is Present. Performed By: #### L 500.2500, L501.4020, L100.0100 ####[facility] [address] [place], [address] Lymphocytes/100 WBC (Bld) 24.6 % Normal 19-41 [facility] Comment on above: Performed By: #### L 500.2500, L501.4020, L100.0100 ####[facility] [address] [place], [address] MCH (RBC) [Entitic mass] 30.7 pg Normal 27.0-32.0 [facility] Comment on above: Performed By: #### L 500.2500, L501.4020, L100.0100 ####[facility] [address] [place], [address] MCHC (RBC) [Mass/Vol] 31.2 g/dL Low 32-36 [facility] Comment on above: Performed By: #### L 500.2500, L501.4020, L100.0100 ####[facility] [address] [place], [address] MCV (RBC) [Entitic vol] 98.3 fL Normal 81-99 [facility] Comment on above: Performed By: #### L 500.2500, L501.4020, L100.0100 ####[facility] [address] [place], [address] Monocytes/100 WBC (Bld) 6.1 % Normal 0-10 [facility] Comment on above: Performed By: #### L 500.2500, L501.4020, L100.0100 ####[facility] [address] [place], [address] Neutrophils/100 WBC (Bld) 63.8 % Normal 47-70 [facility] Comment on above: Performed By: #### L 500.2500, L501.4020, L100.0100 ####[facility] [address] [place], [address] Nucleated RBC (Bld) [#/Vol] 0 10*3/uL Normal 0-5 [facility] Comment on above: Performed By: #### L 500.2500, L501.4020, L100.0100 ####[facility] [address] [place], [address] Platelet mean volume (Bld) [Entitic vol] 11.1 fL Normal 6.2-12.0 [facility] Comment on above: Performed By: #### L 500.2500, L501.4020, L100.0100 ####[facility] [address] [place], [address] Platelets (Bld) [#/Vol] 168 10*3/uL Normal 150-450 [facility] Comment on above: Performed By: #### L 500.2500, L501.4020, L100.0100 ####[facility] [address] [place], [address] RBC (Bld) [#/Vol] 2.41 10*6/uL Low 4.2-5.4 [facility] Comment on above: Performed By: #### L 500.2500, L501.4020, L100.0100 ####[facility] [address] [place], [address] RDW SD 61.5 fl High 35.1-43.9 [facility] Comment on above: Performed By: #### L 500.2500, L501.4020, L100.0100 ####[facility] [address] [place], [address] WBC (Bld) [#/Vol] 4.7 10*3/uL Normal 4.4-11.0 [facility] Comment on above: Performed By: #### L 500.2500, L501.4020, L100.0100 ####[facility] [address] [place], [address] CTA Chest W/WO Contraston CTA Chest W/WO Contrast Normal [facility] Chest PA and Lateralon 05-14 Chest PA and Lateral Normal [facility] Cholesterol [Mass/Vol]Ordere d By: Sanchez Hernandez on 05-14-2024 Serum or plasma cholesterol measurement (mass/volume) 149 mg/dL <200 [facility] Determination of fraction of inspired oxygenOrdered By: Christopher Bills on 05-14-2024 Determination of fraction of inspired oxygen 2.0 [facility] Emergency Department Summary on 05-14-2024 Emergency Department Summary Normal [facility] High density lipoprotein (HD L) measurementOrdered By: Sanchez Hernandez on 05-14-2024 High density lipoprotein (HDL) measurement 54 mg/dL >40 [facility] International normalized rat io (INR) calculationOrdered By: Christopher Bills on 05-14-2024 International normalized ratio (INR) calculation 1.2 [facility] L501.4020on 05-14-2024 TROPONIN-I HS 171 pg/mL Invalid Interpretation Code 3.0-54.0 [facility] Comment on above: Order Comment: 'TROP ' Serial specimen #1, #2 or #3: 1 Result Comment: Crit ical Result(s) Called at: 21:16:52 05/14/2024 by: RICHY. Results read back by Junior ROCHE Please Note: New Test Units and Gender Specific Reference Ranges. For more information see Policy Stat Procedure [place] High Sensitivity Troponin (TNIH) and attachments. Performed By: #### L 500.2500, L501.4020, L100.0100 ####[facility] [address] [place], [address] Lactic Acidon 05-14-2024 Lactate [Moles/Vol] 2.4 mmol/L Invalid Interpretation Code 0.4-1.9 [facility] Comment on above: Order Comment: Y Result Comment: Crit ical Result(s) Called at: 21:55:47 05/14/2024 by: RICHY. Results read back by Junior ROCHE Performed By: #### L 503.6001 ####[facility] [address] [place], [place], [address] Low density lipoprotein (LDL ) cholesterol measurementOrdered By: Sanchez Hernandez on 05-14-2024 Low density lipoprotein (LDL) cholesterol measurement 69 mg/dL 0-130 [facility] M100.678on 05-14-2024 M100.678 Pending SARS-CoV-2 (COVID 19) Negative INFLUENZA A Negative INFLUENZA B Negative RSV PCR Negative Normal [facility] Comment on above: Performed By: #### M 100.678 ####[facility] [address] [place], [address] No Panel InformationOrdered By: Christopher Bills on 05-14-2024 ART [facility] R Radial [facility] Not entered [facility] Cannula [facility] Oxygen saturation measuremen tOrdered By: Christopher Bills on 05-14-2024 Oxygen saturation measurement 98 % 95-99 [facility] Partial Thromboplast Timeon 05-14-2024 aPTT Coag (Bld) [Time] 27.6 s Normal 24.1-36.2 [facility] Comment on above: Performed By: #### M 200.1000, L300.3900, L300.4310 ####[facility] [address] [place], [address] Partial pressure of carbon d ioxide measurementOrdered By: Christopher Bills on 05-14-2024 Partial pressure of carbon dioxide measurement 57.7 mmHg High 35-45 [facility] Partial pressure of oxygen m easurementOrdered By: Christopher Bills on 05-14-2024 Partial pressure of oxygen measurement 109 mmHG High 75-100 [facility] Prothrombin Time w/INRon INR Coag (PPP) [Relative time] 1.2 {INR} Normal [facility] Comment on above: Performed By: #### M 200.1000, L300.3900, L300.4310 ####[facility] [address] [place], [address] PT Coag (PPP) [Time] 15.0 s High 11.7-14.9 [facility] Comment on above: Performed By: #### M 200.1000, L300.3900, L300.4310 ####[facility] [address] [place], [address] Prothrombin timeOrdered By: Christopher Bills on 05-14-2024 Prothrombin time 15.0 SECONDS High 11.7-14.9 [facility] Total carbon dioxide measure mentOrdered By: Christopher Bills on 05-14-2024 Total carbon dioxide measurement 35 mmol/L [facility] Triglycerides measurementOrd ered By: Sanchez Hernandez on 05-14-2024 Triglycerides measurement 130 mg/dL <199 [facility] Very low density lipoprotein (VLDL) cholesterol measurementOrdered By: Sanchez Hernandez on 05-14-2024 Very low density lipoprotein (VLDL) cholesterol measurement 26 mg/dL 5-40 [facility] aPTT Coag (PPP) [Time]Ordere d By: Christopher Bills on 05-14-2024 Activated partial thromboplastin time (aPTT) in platelet poor plasma by coagulation a 27.6 Seconds 24.1-36.2 [facility] pH (Unsp spec)Ordered By: Eric Bills on 05-14-2024 Measurement, pH 7.36 7.35-7.45 [facility] Internal Medicine Office Vis iton 05-06-2024 Internal Medicine Office Visit Normal [facility] L3410.9999on 04-26-2024 [facility]. COMMENT Normal . [facility] Comment on above: Order Comment: [facility], ROOM [id number] ZOSTER VIRUS,DNA PCR Result Comment: Test Ordered: [id number] VZV Real Time PCRVZV Real Time PCR Positive [A ] BN Reference Range: NegativeVaricella Zoster Virus DNA detected.This test was developed and its performance characteristicsdetermined by [employer]. It has not been cleared or approvedby the Food and Drug Administration. The FDA hasdetermined that such clearance or approval is notnecessary.Performed at: [address] [id number] Director: Amrit Hatch MD, Phone: [phone] at: [address] [id number] Director: Enrique Carroll PhD, Phone: [phone] Performed By: #### L 3410.9999 ####[facility] [address] [place], [address] Emergency Department Summary on 04-22-2024 Emergency Department Summary Normal [facility] MR/BMS.BVSon 04-15-2024 MR/BMS.BVS Normal [facility] MR/BMS.BVSon 03-11-2024 MR/BMS.BVS Normal [facility] Dialysis Vein Map PRE-OP NEAL ATon 02-20-2024 Dialysis Vein Map PRE-OP BILAT Normal [facility] MR/BMS.BVSon 02-13-2024 MR/BMS.BVS Normal [facility] Internal Medicine Office Vis iton 02-11-2024 Internal Medicine Office Visit Normal [facility] Basic Metabolic Profile (BMP )on 02-02-2024 BUN/CRE 6.4 RATIO Low 10- [facility] Comment on above: Order Comment: 106-1 Performed By: #### L 100.0500, L500.2500 ####[facility] [address] [place], [address] CA,Total 9.1 mg/dL Normal 8.5-10.1 [facility] Comment on above: Order Comment: 106-1 Performed By: #### L 100.0500, L500.2500 ####[facility] [address] [place], [address] Chloride [Moles/Vol] 98 mmol/L Normal 98-107 [facility] Comment on above: Order Comment: 106-1 Performed By: #### L 100.0500, L500.2500 ####[facility] [address] [place], [address] CO2 [Moles/Vol] 24.0 mmol/L Normal 21.0-32.0 [facility] Comment on above: Order Comment: 106-1 Performed By: #### L 100.0500, L500.2500 ####[facility] [address] [place], [address] Creatinine [Mass/Vol] 6.52 mg/dL High 0.55-1.02 [facility] Comment on above: Order Comment: 106-1 Result Comment: The validity of the calculated GFR GFRAA in patients over70 years has not been determined. Clinical correlation isessential. Performed By: #### L 100.0500, L500.2500 ####[facility] [address] [place], [address] EST GFR - AA 8 mL/min Low >60 [facility] Comment on above: Order Comment: 106- Result Comment: Afri can [place] GFR Calc Performed By: #### L 100.0500, L500.2500 ####[facility] [address] [place], [address] GAP 11 Normal 5-15 [facility] Comment on above: Order Comment: 106-1 Performed By: #### L 100.0500, L500.2500 ####[facility] [address] [place], [address] GFR/1.73 sq M.predicted among non-blacks MDRD (S/P/Bld) [Vol rate/Area] 6 mL/min/{1.73_m2} Low >60 [facility] Comment on above: Order Comment: 106- Result Comment: Non- GFR Calc Performed By: #### L 100.0500, L500.2500 ####[facility] [address] [place], [address] Glucose [Mass/Vol] 86 mg/dL Normal 74-106 [facility] Comment on above: Order Comment: 106-1 Performed By: #### L 100.0500, L500.2500 ####[facility] [address] [place], [address] Potassium [Moles/Vol] 5.5 mmol/L High 3.5-5.1 [facility] Comment on above: Order Comment: 106-1 Performed By: #### L 100.0500, L500.2500 ####[facility] [address] [place], [address] Sodium [Moles/Vol] 133 mmol/L Low 136-145 [facility] Comment on above: Order Comment: 106-1 Performed By: #### L 100.0500, L500.2500 ####[facility] [address] [place], [address] Urea nitrogen [Mass/Vol] 42 mg/dL High 7-18 [facility] Comment on above: Order Comment: 106-1 Performed By: #### L 100.0500, L500.2500 ####[facility] [address] [place], [address] CBC-Complete Blood Cnt No Di ffon 02-02-2024 Erythrocyte distribution width (RBC) [Ratio] 18.3 % High 11.6-14.6 [facility] Comment on above: Order Comment: 106-1 Performed By: #### L 100.0500, L500.2500 ####[facility] [address] [place], [address] Hematocrit (Bld) [Volume fraction] 28.0 % Low 37-47 [facility] Comment on above: Order Comment: 106-1 Performed By: #### L 100.0500, L500.2500 ####[facility] [address] [place], [address] Hemoglobin (Bld) [Mass/Vol] 8.6 g/dL Low 12.0-15.0 [facility] Comment on above: Order Comment: 106-1 Performed By: #### L 100.0500, L500.2500 ####[facility] [address] [place], [address] MCH (RBC) [Entitic mass] 30.4 pg Normal 27.0-32.0 [facility] Comment on above: Order Comment: 106-1 Performed By: #### L 100.0500, L500.2500 ####[facility] [address] [place], [address] MCHC (RBC) [Mass/Vol] 30.7 g/dL Low 32-36 [facility] Comment on above: Order Comment: 106-1 Performed By: #### L 100.0500, L500.2500 ####[facility] [address] [place], [address] MCV (RBC) [Entitic vol] 98.9 fL Normal 81-[address] [facility] Comment on above: Order Comment: 106-1 Performed By: #### L 100.0500, L500.2500 ####[facility] [address] [place], [address] Platelet mean volume (Bld) [Entitic vol] 11.0 fL Normal 6.2-12.0 [facility] Comment on above: Order Comment: 106-1 Performed By: #### L 100.0500, L500.2500 ####[facility] [address] [place], [address] Platelets (Bld) [#/Vol] 115 10*3/uL Low 150-450 [facility] Comment on above: Order Comment: 106-1 Performed By: #### L 100.0500, L500.2500 ####[facility] [address] [place], [address] RBC (Bld) [#/Vol] 2.83 10*6/uL Low 4.2-5.4 [facility] Comment on above: Order Comment: 106-1 Performed By: #### L 100.0500, L500.2500 ####[facility] [address] [place], [address] RDW SD 66.1 fl High 35.1-43.9 [facility] Comment on above: Order Comment: 106-1 Performed By: #### L 100.0500, L500.2500 ####[facility] [address] [place], [address] WBC (Bld) [#/Vol] 6.3 10*3/uL Normal 4.4-11.0 [facility] Comment on above: Order Comment: 106-1 Performed By: #### L 100.0500, L500.2500 ####[facility] [address] [place], [address] Basic Metabolic Profile (BMP )on 01-27-2024 BUN/CRE 8.3 RATIO Low 10- [facility] Comment on above: Performed By: #### L 501.5200, L500.4100, L100.0500, L500.2500, L501.9520, L503.0105, L506.1000 ####[facility] [address] [place], [address] CA,Total 8.8 mg/dL Normal 8.5-10.1 [facility] Comment on above: Performed By: #### L 501.5200, L500.4100, L100.0500, L500.2500, L501.9520, L503.0105, L506.1000 ####[facility] [address] [place], [address] Chloride [Moles/Vol] 103 mmol/L Normal 98-107 [facility] Comment on above: Performed By: #### L 501.5200, L500.4100, L100.0500, L500.2500, L501.9520, L503.0105, L506.1000 ####[facility] [address] [place], [address] CO2 [Moles/Vol] 24.0 mmol/L Normal 21.0-32.0 [facility] Comment on above: Performed By: #### L 501.5200, L500.4100, L100.0500, L500.2500, L501.9520, L503.0105, L506.1000 ####[facility] [address] [place], [place], [address] Creatinine [Mass/Vol] 5.28 mg/dL High 0.55-1.02 [facility] Comment on above: Result Comment: The validity of the calculated GFR GFRAA in patients over70 years has not been determined. Clinical correlation isessential. Performed By: #### L 501.5200, L500.4100, L100.0500, L500.2500, L501.9520, L503.0105, L506.1000 ####[facility] [address] [place], [place], [address] EST GFR - AA 10 mL/min Low >60 [facility] Comment on above: Result Comment: Afri can [place] GFR Calc Performed By: #### L 501.5200, L500.4100, L100.0500, L500.2500, L501.9520, L503.0105, L506.1000 ####[facility] [address] [place], [place], [address] GAP 8 Normal 5-15 [facility] Comment on above: Performed By: #### L 501.5200, L500.4100, L100.0500, L500.2500, L501.9520, L503.0105, L506.1000 ####[facility] [address] [place], [place], [address] GFR/1.73 sq M.predicted among non-blacks MDRD (S/P/Bld) [Vol rate/Area] 8 mL/min/{1.73_m2} Low >60 [facility] Comment on above: Result Comment: Non- GFR Calc Performed By: #### L 501.5200, L500.4100, L100.0500, L500.2500, L501.9520, L503.0105, L506.1000 ####[facility] [address] [place], [address] Glucose [Mass/Vol] 83 mg/dL Normal 74-106 [facility] Comment on above: Performed By: #### L 501.5200, L500.4100, L100.0500, L500.2500, L501.9520, L503.0105, L506.1000 ####[facility] [address] [place], [address] Potassium [Moles/Vol] 5.1 mmol/L Normal 3.5-5.1 [facility] Comment on above: Performed By: #### L 501.5200, L500.4100, L100.0500, L500.2500, L501.9520, L503.0105, L506.1000 ####[facility] [address] [place], [address] Sodium [Moles/Vol] 135 mmol/L Low 136-145 [facility] Comment on above: Performed By: #### L 501.5200, L500.4100, L100.0500, L500.2500, L501.9520, L503.0105, L506.1000 ####[facility] [address] [place], [address] Urea nitrogen [Mass/Vol] 44 mg/dL High 7-18 [facility] Comment on above: Performed By: #### L 501.5200, L500.4100, L100.0500, L500.2500, L501.9520, L503.0105, L506.1000 ####[facility] [address] [place], [address] CBC-Complete Blood Cnt No Di ffon 01-27-2024 Erythrocyte distribution width (RBC) [Ratio] 17.5 % High 11.6-14.6 [facility] Comment on above: Performed By: #### L 501.5200, L500.4100, L100.0500, L500.2500, L501.9520, L503.0105, L506.1000 ####[facility] [address] [place], [address] Hematocrit (Bld) [Volume fraction] 25.2 % Low 37-47 [facility] Comment on above: Performed By: #### L 501.5200, L500.4100, L100.0500, L500.2500, L501.9520, L503.0105, L506.1000 ####[facility] [address] [place], [address] Hemoglobin (Bld) [Mass/Vol] 7.7 g/dL Low 12.0-15.0 [facility] Comment on above: Performed By: #### L 501.5200, L500.4100, L100.0500, L500.2500, L501.9520, L503.0105, L506.1000 ####[facility] [address] [place], [address] MCH (RBC) [Entitic mass] 29.7 pg Normal 27.0-32.0 [facility] Comment on above: Performed By: #### L 501.5200, L500.4100, L100.0500, L500.2500, L501.9520, L503.0105, L506.1000 ####[facility] [address] [place], [address] MCHC (RBC) [Mass/Vol] 30.6 g/dL Low 32-36 [facility] Comment on above: Performed By: #### L 501.5200, L500.4100, L100.0500, L500.2500, L501.9520, L503.0105, L506.1000 ####[facility] [address] [place], [address] MCV (RBC) [Entitic vol] 97.3 fL Normal 81-[address] [facility] Comment on above: Performed By: #### L 501.5200, L500.4100, L100.0500, L500.2500, L501.9520, L503.0105, L506.1000 ####[facility] [address] [place], [address] Platelet mean volume (Bld) [Entitic vol] 11.1 fL Normal 6.2-12.0 [facility] Comment on above: Performed By: #### L 501.5200, L500.4100, L100.0500, L500.2500, L501.9520, L503.0105, L506.1000 ####[facility] [address] [place], [address] Platelets (Bld) [#/Vol] 167 10*3/uL Normal 150-450 [facility] Comment on above: Performed By: #### L 501.5200, L500.4100, L100.0500, L500.2500, L501.9520, L503.0105, L506.1000 ####[facility] [address] [place], [address] RBC (Bld) [#/Vol] 2.59 10*6/uL Low 4.2-5.4 [facility] Comment on above: Performed By: #### L 501.5200, L500.4100, L100.0500, L500.2500, L501.9520, L503.0105, L506.1000 ####[facility] [address] [place], [address] RDW SD 58.3 fl High 35.1-43.9 [facility] Comment on above: Performed By: #### L 501.5200, L500.4100, L100.0500, L500.2500, L501.9520, L503.0105, L506.1000 ####[facility] [address] [place], [address] WBC (Bld) [#/Vol] 11.7 10*3/uL High 4.4-11.0 [facility] Comment on above: Performed By: #### L 501.5200, L500.4100, L100.0500, L500.2500, L501.9520, L503.0105, L506.1000 ####[facility] [address] [place], [address] Lipid Profileon 01-27-2024 Cholesterol [Mass/Vol] 117 mg/dL Normal 200 [facility] Comment on above: Result Comment: <200 mg/dL Desirable 200-240 mg/dL Borderline >240 mg/dL High Risk Performed By: #### L 501.5200, L500.4100, L100.0500, L500.2500, L501.9520, L503.0105, L506.1000 ####[facility] [address] [place], [address] Cholesterol in HDL [Mass/Vol] 38 mg/dL Low [facility] Comment on above: Result Comment: The drugs N-Acetylcysteine and Metamizole may falselydepress this assay. Reference Range HDL <40 mg/dL Low HDL Cholesterol HDL >or= 60 mg/dL High HDL Cholesterol Performed By: #### L 501.5200, L500.4100, L100.0500, L500.2500, L501.9520, L503.0105, L506.1000 ####[facility] [address] [place], [address] Cholesterol in LDL [Mass/Vol] 42 mg/dL Normal 0-130 [facility] Comment on above: Performed By: #### L 501.5200, L500.4100, L100.0500, L500.2500, L501.9520, L503.0105, L506.1000 ####[facility] [address] [place], [address] Cholesterol in VLDL [Mass/Vol] 37 mg/dL Normal 5-40 [facility] Comment on above: Performed By: #### L 501.5200, L500.4100, L100.0500, L500.2500, L501.9520, L503.0105, L506.1000 ####[facility] [address] [place], [address] Triglyceride [Mass/Vol] 185 mg/dL Normal [facility] Comment on above: Result Comment: The drugs N-Acetylcysteine and Metamizole may falselydepress this assay.Serum Triglycerides Reference Interval Normal <150 mg/dL Borderline high 150 - 199 mg/dL High 200 - 499 mg/dL Very High > or = 500 mg/dL Performed By: #### L 501.5200, L500.4100, L100.0500, L500.2500, L501.9520, L503.0105, L506.1000 ####[facility] [address] [place], [address] Magnesiumon 01-27-2024 Magnesium [Mass/Vol] 2.0 mg/dL Normal 1.6-2.6 [facility] Comment on above: Performed By: #### L 501.5200, L500.4100, L100.0500, L500.2500, L501.9520, L503.0105, L506.1000 ####[facility] [address] [place], [address] Thyroid Stim Hormone (TSH)on 01-27-2024 TSH 3.750 uIU/mL High 0.358-3.740 [facility] Comment on above: Performed By: #### L 501.5200, L500.4100, L100.0500, L500.2500, L501.9520, L503.0105, L506.1000 ####[facility] [address] [place], [address] Vitamin B12on 01-27-2024 Cobalamin (Vitamin B12) [Mass/Vol] 1783 pg/mL High 211-911 [facility] Comment on above: Performed By: #### L 501.5200, L500.4100, L100.0500, L500.2500, L501.9520, L503.0105, L506.1000 ####[facility] [address] [place], [address] Vitamin D,25 Hydroxyon 01-26 Vitamin D 25-OH 26.0 ng/mL Normal [facility] Comment on above: Result Comment: Mary min D 25(OH) Status Range Deficiency <20 ng/mL (50nmol/L) Insufficiency 20 - 30 ng/mL (50 - 75 nmol/L) Sufficiency 30 - 100 ng/mL (75 - 250 nmol/L) Toxicity >100 ng/mL (>250 nmol/L) Performed By: #### L 501.5200, L500.4100, L100.0500, L500.2500, L501.9520, L503.0105, L506.1000 ####[facility] [address] [place], [address] Basic Metabolic Profile (BMP )on 01-26-2024 BUN/CRE 9.9 RATIO Low 10- [facility] Comment on above: Performed By: #### L 500.2500, L100.0500 ####[facility] [address] [place], [address] CA,Total 8.9 mg/dL Normal 8.5-10.1 [facility] Comment on above: Performed By: #### L 500.2500, L100.0500 ####[facility] [address] [place], [address] Chloride [Moles/Vol] 103 mmol/L Normal 98-107 [facility] Comment on above: Performed By: #### L 500.2500, L100.0500 ####[facility] [address] [place], [address] CO2 [Moles/Vol] 21.0 mmol/L Normal 21.0-32.0 [facility] Comment on above: Performed By: #### L 500.2500, L100.0500 ####[facility] [address] [place], [address] Creatinine [Mass/Vol] 6.94 mg/dL High 0.55-1.02 [facility] Comment on above: Result Comment: The validity of the calculated GFR GFRAA in patients over70 years has not been determined. Clinical correlation isessential. Performed By: #### L 500.2500, L100.0500 ####[facility] [address] [place], [address] ECRCL 4.33 ml/min Normal [facility] Comment on above: Performed By: #### L 500.2500, L100.0500 ####[facility] [address] [place], [address] EST GFR - AA 7 mL/min Low >60 [facility] Comment on above: Result Comment: Afri can [place] GFR Calc Performed By: #### L 500.2500, L100.0500 ####[facility] [address] [place], [address] GAP 12 Normal 5-15 [facility] Comment on above: Performed By: #### L 500.2500, L100.0500 ####[facility] [address] [place], [address] GFR/1.73 sq M.predicted among non-blacks MDRD (S/P/Bld) [Vol rate/Area] 6 mL/min/{1.73_m2} Low >60 [facility] Comment on above: Result Comment: Non- GFR Calc Performed By: #### L 500.2500, L100.0500 ####[facility] [address] [place], [address] Glucose [Mass/Vol] 93 mg/dL Normal 74-106 [facility] Comment on above: Performed By: #### L 500.2500, L100.0500 ####[facility] [address] [place], [address] Potassium [Moles/Vol] 5.8 mmol/L High 3.5-5.1 [facility] Comment on above: Performed By: #### L 500.2500, L100.0500 ####[facility] [address] [place], [address] Sodium [Moles/Vol] 136 mmol/L Normal 136-145 [facility] Comment on above: Performed By: #### L 500.2500, L100.0500 ####[facility] [address] [place], [address] Urea nitrogen [Mass/Vol] 69 mg/dL High 7-18 [facility] Comment on above: Performed By: #### L 500.2500, L100.0500 ####[facility] [address] [place], [address] CBC-[facility] Erythrocyte distribution width (RBC) [Ratio] 17.1 % High 11.6-14.6 [facility] Comment on above: Performed By: #### L 500.2500, L100.0500 ####[facility] [address] [place], [address] Hematocrit (Bld) [Volume fraction] 24.8 % Low 37-47 [facility] Comment on above: Performed By: #### L 500.2500, L100.0500 ####[facility] [address] [place], [address] Hemoglobin (Bld) [Mass/Vol] 7.9 g/dL Low 12.0-15.0 [facility] Comment on above: Performed By: #### L 500.2500, L100.0500 ####[facility] [address] [place], [address] MCH (RBC) [Entitic mass] 30.3 pg Normal 27.0-32.0 [facility] Comment on above: Performed By: #### L 500.2500, L100.0500 ####[facility] [address] [place], [address] MCHC (RBC) [Mass/Vol] 31.9 g/dL Low 32-36 [facility] Comment on above: Performed By: #### L 500.2500, L100.0500 ####[facility] [address] [place], [address] MCV (RBC) [Entitic vol] 95.0 fL Normal 81-[address] [facility] Comment on above: Performed By: #### L 500.2500, L100.0500 ####[facility] [address] [place], [address] Platelet mean volume (Bld) [Entitic vol] 11.0 fL Normal 6.2-12.0 [facility] Comment on above: Performed By: #### L 500.2500, L100.0500 ####[facility] [address] [place], [address] Platelets (Bld) [#/Vol] 151 10*3/uL Normal 150-450 [facility] Comment on above: Performed By: #### L 500.2500, L100.0500 ####[facility] [address] [place], [address] RBC (Bld) [#/Vol] 2.61 10*6/uL Low 4.2-5.4 [facility] Comment on above: Performed By: #### L 500.2500, L100.0500 ####[facility] [address] [place], [address] RDW SD 56.9 fl High 35.1-43.9 [facility] Comment on above: Performed By: #### L 500.2500, L100.0500 ####[facility] [address] [place], [address] WBC (Bld) [#/Vol] 11.3 10*3/uL High 4.4-11.0 [facility] Comment on above: Performed By: #### L 500.2500, L100.0500 ####[facility] [address] [place], [address] CBC-Complete Blood Cnt No Di ffon 01-25-2024 Erythrocyte distribution width (RBC) [Ratio] 16.8 % High 11.6-14.6 [facility] Comment on above: Performed By: #### L 100.0500 ####[facility] [address] [place], [address] Hematocrit (Bld) [Volume fraction] 26.5 % Low 37-47 [facility] Comment on above: Performed By: #### L 100.0500 ####[facility] [address] [place], [address] Hemoglobin (Bld) [Mass/Vol] 8.5 g/dL Low 12.0-15.0 [facility] Comment on above: Performed By: #### L 100.0500 ####[facility] [address] [place], [address] MCH (RBC) [Entitic mass] 29.9 pg Normal 27.0-32.0 [facility] Comment on above: Performed By: #### L 100.0500 ####[facility] [address] [place], [address] MCHC (RBC) [Mass/Vol] 32.1 g/dL Normal 32-36 [facility] Comment on above: Performed By: #### L 100.0500 ####[facility] [address] [place], [address] MCV (RBC) [Entitic vol] 93.3 fL Normal 81-[address] [facility] Comment on above: Performed By: #### L 100.0500 ####[facility] [address] [place], [address] Platelet mean volume (Bld) [Entitic vol] 11.3 fL Normal 6.2-12.0 [facility] Comment on above: Performed By: #### L 100.0500 ####[facility] [address] [place], [address] Platelets (Bld) [#/Vol] 135 10*3/uL Low 150-450 [facility] Comment on above: Performed By: #### L 100.0500 ####[facility] [address] [place], [address] RBC (Bld) [#/Vol] 2.84 10*6/uL Low 4.2-5.4 [facility] Comment on above: Performed By: #### L 100.0500 ####[facility] [address] [place], [address] RDW SD 56.0 fl High 35.1-43.9 [facility] Comment on above: Performed By: #### L 100.0500 ####[facility] [address] [place], [address] WBC (Bld) [#/Vol] 11.2 10*3/uL High 4.4-11.0 [facility] Comment on above: Performed By: #### L 100.0500 ####[facility] [address] [place], [address] HH, Hemoglobin AND Hematocri ton 01-25-2024 Hematocrit (Bld) [Volume fraction] 27.9 % Low 37-47 [facility] Comment on above: Performed By: #### L 100.0600 ####[facility] [address] [place], [address] Hemoglobin (Bld) [Mass/Vol] 9.0 g/dL Low 12.0-15.0 [facility] Comment on above: Performed By: #### L 100.0600 ####[facility] [address] [place], [address] Platelet AB Profileon 2023 Ia/IIa ANTIBODY Normal [facility] Comment on above: Result Comment: Resu lt: Negative Performed By: #### L 4500.9110 ####[facility] [address] [place], [address] Ib/IX ANTIBODY Normal [facility] Comment on above: Result Comment: Resu lt: Negative Performed By: #### L 4500.9110 ####[facility] [address] [place], [address] IIb/IIIa Ab Normal [facility] Comment on above: Result Comment: Resu lt: Negative Performed By: #### L 4500.9110 ####[facility] [address] [place], [address] HLA CLASS 1 Ab Normal [facility] Comment on above: Result Comment: Resu lt: Negative Performed By: #### L 4500.9110 ####[facility] [address] [place], [address] Basic Metabolic Profile (BMP )on 01-24-2024 BUN/CRE 10.3 RATIO Normal 10-20 [facility] Comment on above: Performed By: #### L 100.0500, L500.2500 ####[facility] [address] [place], [address] CA,Total 7.9 mg/dL Low 8.5-10.1 [facility] Comment on above: Performed By: #### L 100.0500, L500.2500 ####[facility] [address] [place], [address] Chloride [Moles/Vol] 105 mmol/L Normal 98-107 [facility] Comment on above: Performed By: #### L 100.0500, L500.2500 ####[facility] [address] [place], [address] CO2 [Moles/Vol] 21.0 mmol/L Normal 21.0-32.0 [facility] Comment on above: Performed By: #### L 100.0500, L500.2500 ####[facility] [address] [place], [address] Creatinine [Mass/Vol] 4.66 mg/dL High 0.55-1.02 [facility] Comment on above: Result Comment: The validity of the calculated GFR GFRAA in patients over70 years has not been determined. Clinical correlation isessential. Performed By: #### L 100.0500, L500.2500 ####[facility] [address] [place], [address] ECRCL 6.46 ml/min Normal [facility] Comment on above: Performed By: #### L 100.0500, L500.2500 ####[facility] [address] [place], [address] EST GFR - AA 12 mL/min Low >60 [facility] Comment on above: Result Comment: Afri can [place] GFR Calc Performed By: #### L 100.0500, L500.2500 ####[facility] [address] [place], [address] GAP 8 Normal 5-15 [facility] Comment on above: Performed By: #### L 100.0500, L500.2500 ####[facility] [address] [place], [address] GFR/1.73 sq M.predicted among non-blacks MDRD (S/P/Bld) [Vol rate/Area] 10 mL/min/{1.73_m2} Low >60 [facility] Comment on above: Result Comment: Non- GFR Calc Performed By: #### L 100.0500, L500.2500 ####[facility] [address] [place], [address] Glucose [Mass/Vol] 99 mg/dL Normal 74-106 [facility] Comment on above: Performed By: #### L 100.0500, L500.2500 ####[facility] [address] [place], [address] Potassium [Moles/Vol] 5.4 mmol/L High 3.5-5.1 [facility] Comment on above: Performed By: #### L 100.0500, L500.2500 ####[facility] [address] [place], [address] Sodium [Moles/Vol] 134 mmol/L Low 136-145 [facility] Comment on above: Performed By: #### L 100.0500, L500.2500 ####[facility] [address] [place], [address] Urea nitrogen [Mass/Vol] 48 mg/dL High 7-18 [facility] Comment on above: Performed By: #### L 100.0500, L500.2500 ####[facility] [address] [place], [address] CBC-Complete Blood Cnt No Di ffon 01-24-2024 Erythrocyte distribution width (RBC) [Ratio] 17.5 % High 11.6-14.6 [facility] Comment on above: Performed By: #### L 100.0500, L500.2500 ####[facility] [address] [place], [address] Hematocrit (Bld) [Volume fraction] 26.2 % Low 37-47 [facility] Comment on above: Performed By: #### L 100.0500, L500.2500 ####[facility] [address] [place], [address] Hemoglobin (Bld) [Mass/Vol] 8.3 g/dL Low 12.0-15.0 [facility] Comment on above: Performed By: #### L 100.0500, L500.2500 ####[facility] [address] [place], [address] MCH (RBC) [Entitic mass] 30.1 pg Normal 27.0-32.0 [facility] Comment on above: Performed By: #### L 100.0500, L500.2500 ####[facility] [address] [place], [address] MCHC (RBC) [Mass/Vol] 31.7 g/dL Low 32-36 [facility] Comment on above: Performed By: #### L 100.0500, L500.2500 ####[facility] [address] [place], [address] MCV (RBC) [Entitic vol] 94.9 fL Normal 81-99 [facility] Comment on above: Performed By: #### L 100.0500, L500.2500 ####[facility] [address] [place], [address] Platelet mean volume (Bld) [Entitic vol] 11.5 fL Normal 6.2-12.0 [facility] Comment on above: Performed By: #### L 100.0500, L500.2500 ####[facility] [address] [place], [address] Platelets (Bld) [#/Vol] 114 10*3/uL Low 150-450 [facility] Comment on above: Performed By: #### L 100.0500, L500.2500 ####[facility] [address] [place], [address] RBC (Bld) [#/Vol] 2.76 10*6/uL Low 4.2-5.4 [facility] Comment on above: Performed By: #### L 100.0500, L500.2500 ####[facility] [address] [place], [address] RDW SD 59.6 fl High 35.1-43.9 [facility] Comment on above: Performed By: #### L 100.0500, L500.2500 ####[facility] [address] [place], [address] WBC (Bld) [#/Vol] 11.9 10*3/uL High 4.4-11.0 [facility] Comment on above: Performed By: #### L 100.0500, L500.2500 ####[facility] [address] [place], [address] Basic Metabolic Profile (BMP )on 01-23-2024 BUN/CRE 12.0 RATIO Normal 10-20 [facility] Comment on above: Performed By: #### L 500.2500, L100.0500 ####[facility] [address] [place], [address] CA,Total 8.3 mg/dL Low 8.5-10.1 [facility] Comment on above: Performed By: #### L 500.2500, L100.0500 ####[facility] [address] [place], [address] Chloride [Moles/Vol] 104 mmol/L Normal 98-107 [facility] Comment on above: Performed By: #### L 500.2500, L100.0500 ####[facility] [address] [place], [address] CO2 [Moles/Vol] 21.0 mmol/L Normal 21.0-32.0 [facility] Comment on above: Performed By: #### L 500.2500, L100.0500 ####[facility] [address] [place], [address] Creatinine [Mass/Vol] 6.19 mg/dL High 0.55-1.02 [facility] Comment on above: Result Comment: The validity of the calculated GFR GFRAA in patients over70 years has not been determined. Clinical correlation isessential. Performed By: #### L 500.2500, L100.0500 ####[facility] [address] [place], [address] ECRCL 4.86 ml/min Normal [facility] Comment on above: Performed By: #### L 500.2500, L100.0500 ####[facility] [address] [place], [address] EST GFR - AA 8 mL/min Low >60 [facility] Comment on above: Result Comment: Afri can [place] GFR Calc Performed By: #### L 500.2500, L100.0500 ####[facility] [address] [place], [address] GAP 9 Normal 5-15 [facility] Comment on above: Performed By: #### L 500.2500, L100.0500 ####[facility] [address] [place], [address] GFR/1.73 sq M.predicted among non-blacks MDRD (S/P/Bld) [Vol rate/Area] 7 mL/min/{1.73_m2} Low >60 [facility] Comment on above: Result Comment: Non- GFR Calc Performed By: #### L 500.2500, L100.0500 ####[facility] [address] [place], [address] Glucose [Mass/Vol] 98 mg/dL Normal 74-106 [facility] Comment on above: Performed By: #### L 500.2500, L100.0500 ####[facility] [address] [place], [address] Potassium [Moles/Vol] 5.6 mmol/L High 3.5-5.1 [facility] Comment on above: Performed By: #### L 500.2500, L100.0500 ####[facility] [address] [place], [address] Sodium [Moles/Vol] 135 mmol/L Low 136-145 [facility] Comment on above: Performed By: #### L 500.2500, L100.0500 ####[facility] [address] [place], [address] Urea nitrogen [Mass/Vol] 74 mg/dL High 7-18 [facility] Comment on above: Performed By: #### L 500.2500, L100.0500 ####[facility] [address] [place], [address] CBC-Complete Blood Cnt No Di ffon 01-23-2024 Erythrocyte distribution width (RBC) [Ratio] 17.7 % High 11.6-14.6 [facility] Comment on above: Performed By: #### L 500.2500, L100.0500 ####[facility] [address] [place], [address] Hematocrit (Bld) [Volume fraction] 25.1 % Low 37-47 [facility] Comment on above: Performed By: #### L 500.2500, L100.0500 ####[facility] [address] [place], [address] Hemoglobin (Bld) [Mass/Vol] 8.2 g/dL Low 12.0-15.0 [facility] Comment on above: Performed By: #### L 500.2500, L100.0500 ####[facility] [address] [place], [address] MCH (RBC) [Entitic mass] 29.8 pg Normal 27.0-32.0 [facility] Comment on above: Performed By: #### L 500.2500, L100.0500 ####[facility] [address] [place], [address] MCHC (RBC) [Mass/Vol] 32.7 g/dL Normal 32-36 [facility] Comment on above: Performed By: #### L 500.2500, L100.0500 ####[facility] [address] [place], [address] MCV (RBC) [Entitic vol] 91.3 fL Normal 81-99 [facility] Comment on above: Performed By: #### L 500.2500, L100.0500 ####[facility] [address] [place], [address] Platelet mean volume (Bld) [Entitic vol] 11.7 fL Normal 6.2-12.0 [facility] Comment on above: Performed By: #### L 500.2500, L100.0500 ####[facility] [address] [place], [address] Platelets (Bld) [#/Vol] 102 10*3/uL Low 150-450 [facility] Comment on above: Performed By: #### L 500.2500, L100.0500 ####[facility] [address] [place], [address] RBC (Bld) [#/Vol] 2.75 10*6/uL Low 4.2-5.4 [facility] Comment on above: Performed By: #### L 500.2500, L100.0500 ####[facility] [address] [place], [address] RDW SD 58.3 fl High 35.1-43.9 [facility] Comment on above: Performed By: #### L 500.2500, L100.0500 ####[facility] [address] [place], [address] WBC (Bld) [#/Vol] 12.5 10*3/uL High 4.4-11.0 [facility] Comment on above: Performed By: #### L 500.2500, L100.0500 ####[facility] [address] [place], [address] CXR for Line Placementon CXR for Line Placement Normal [facility] Hepatitis B Surface Antigeno n 01-23-2024 HEP B Surf Ag Non-Reactive Normal Nonreactive [facility] Comment on above: Order Comment: Reaso n for Exam: outpatient dialysis Performed By: #### L 3890.6100 ####[facility] [address] [place], [address] MR/POSTOP.ANEon 01-23-2024 MR/POSTOP.ANE Normal [facility] Operative Reporton Operative Report Normal [facility] CBC-Complete Blood Cnt No Di ffon 01-22-2024 Erythrocyte distribution width (RBC) [Ratio] 17.0 % High 11.6-14.6 [facility] Comment on above: Order Comment: uto x 2 phlebs, nurse made aware Performed By: #### L 100.0500 ####[facility] [address] [place], [address] Hematocrit (Bld) [Volume fraction] 32.1 % Low 37-47 [facility] Comment on above: Order Comment: uto x 2 phlebs, nurse made aware Performed By: #### L 100.0500 ####[facility] [address] [place], [address] Hemoglobin (Bld) [Mass/Vol] 10.6 g/dL Low 12.0-15.0 [facility] Comment on above: Order Comment: uto x 2 phlebs, nurse made aware Performed By: #### L 100.0500 ####[facility] [address] [place], [address] MCH (RBC) [Entitic mass] 29.7 pg Normal 27.0-32.0 [facility] Comment on above: Order Comment: uto x 2 phlebs, nurse made aware Performed By: #### L 100.0500 ####[facility] [address] [place], [address] MCHC (RBC) [Mass/Vol] 33.0 g/dL Normal 32-36 [facility] Comment on above: Order Comment: uto x 2 phlebs, nurse made aware Performed By: #### L 100.0500 ####[facility] [address] [place], [address] MCV (RBC) [Entitic vol] 89.9 fL Normal 81-99 [facility] Comment on above: Order Comment: uto x 2 phlebs, nurse made aware Performed By: #### L 100.0500 ####[facility] [address] [place], [address] Platelet mean volume (Bld) [Entitic vol] 11.8 fL Normal 6.2-12.0 [facility] Comment on above: Order Comment: uto x 2 phlebs, nurse made aware Performed By: #### L 100.0500 ####[facility] [address] [place], [address] Platelets (Bld) [#/Vol] 134 10*3/uL Low 150-450 [facility] Comment on above: Order Comment: uto x 2 phlebs, nurse made aware Performed By: #### L 100.0500 ####[facility] [address] [place], [address] RBC (Bld) [#/Vol] 3.57 10*6/uL Low 4.2-5.4 [facility] Comment on above: Order Comment: uto x 2 phlebs, nurse made aware Performed By: #### L 100.0500 ####[facility] [address] [place], [address] RDW SD 55.1 fl High 35.1-43.9 [facility] Comment on above: Order Comment: uto x 2 phlebs, nurse made aware Performed By: #### L 100.0500 ####[facility] [address] [place], [address] WBC (Bld) [#/Vol] 17.6 10*3/uL High 4.4-11.0 [facility] Comment on above: Order Comment: uto x 2 phlebs, nurse made aware Performed By: #### L 100.0500 ####[facility] [address] [place], [address] Antibody Screenon 01-21-2024 Ab SCREEN GEL Negative Normal [facility] Comment on above: Order Comment: Numbe r of units to be transfused: 1NNWHEN READYNYpt. to get one 5 pack of platelets before OR Performed By: #### B PPHR, BRC, B882-1, RIKKI ####[facility] [address] [place], [address] Basic Metabolic Profile (BMP )on 01-21-2024 BUN/CRE 10.2 RATIO Normal 10-20 [facility] Comment on above: Performed By: #### L 500.2500, L501.5200, L100.0100 ####[facility] [address] [place], [address] CA,Total 9.2 mg/dL Normal 8.5-10.1 [facility] Comment on above: Performed By: #### L 500.2500, L501.5200, L100.0100 ####[facility] [address] [place], [address] Chloride [Moles/Vol] 103 mmol/L Normal 98-107 [facility] Comment on above: Performed By: #### L 500.2500, L501.5200, L100.0100 ####[facility] [address] [place], [address] CO2 [Moles/Vol] 23.0 mmol/L Normal 21.0-32.0 [facility] Comment on above: Performed By: #### L 500.2500, L501.5200, L100.0100 ####[facility] [address] [place], [address] Creatinine [Mass/Vol] 5.02 mg/dL High 0.55-1.02 [facility] Comment on above: Result Comment: The validity of the calculated GFR GFRAA in patients over70 years has not been determined. Clinical correlation isessential. Performed By: #### L 500.2500, L501.5200, L100.0100 ####[facility] [address] [place], [address] ECRCL 5.99 ml/min Normal [facility] Comment on above: Performed By: #### L 500.2500, L501.5200, L100.0100 ####[facility] [address] [place], [address] EST GFR - AA 11 mL/min Low >60 [facility] Comment on above: Result Comment: Afri can [place] GFR Calc Performed By: #### L 500.2500, L501.5200, L100.0100 ####[facility] [address] [place], [address] GAP 9 Normal 5-15 [facility] Comment on above: Performed By: #### L 500.2500, L501.5200, L100.0100 ####[facility] [address] [place], [address] GFR/1.73 sq M.predicted among non-blacks MDRD (S/P/Bld) [Vol rate/Area] 9 mL/min/{1.73_m2} Low >60 [facility] Comment on above: Result Comment: Non- GFR Calc Performed By: #### L 500.2500, L501.5200, L100.0100 ####[facility] [address] [place], [address] Glucose [Mass/Vol] 101 mg/dL Normal 74-106 [facility] Comment on above: Result Comment: Fast ing Glucose result from 100 to 125 mg/dLsuggests IMPAIRED HOMEOSTASIS per A.D.A. criteria. Performed By: #### L 500.2500, L501.5200, L100.0100 ####[facility] [address] [place], [address] Potassium [Moles/Vol] 4.9 mmol/L Normal 3.5-5.1 [facility] Comment on above: Performed By: #### L 500.2500, L501.5200, L100.0100 ####[facility] [address] [place], [address] Sodium [Moles/Vol] 135 mmol/L Low 136-145 [facility] Comment on above: Performed By: #### L 500.2500, L501.5200, L100.0100 ####[facility] [address] [place], [address] Urea nitrogen [Mass/Vol] 51 mg/dL High 7-18 [facility] Comment on above: Performed By: #### L 500.2500, L501.5200, L100.0100 ####[facility] [address] [place], [address] CBC W/Diff, Automatedon 12-28 Absolute Lymph 1.40 X10 3/uL Normal 0.83-4.51 [facility] Comment on above: Performed By: #### L 500.2500, L501.5200, L100.0100 ####[facility] [address] [place], [address] Absolute Neut 5.1 X10 3/uL Normal 2.0-7.7 [facility] Comment on above: Performed By: #### L 500.2500, L501.5200, L100.0100 ####[facility] [address] [place], [address] Basophils/100 WBC (Bld) 0.4 % Normal 0-[address] [facility] Comment on above: Performed By: #### L 500.2500, L501.5200, L100.0100 ####[facility] [address] [place], [address] Eosinophils/100 WBC (Bld) 3.5 % Normal 0-5 [facility] Comment on above: Performed By: #### L 500.2500, L501.5200, L100.0100 ####[facility] [address] [place], [address] Erythrocyte distribution width (RBC) [Ratio] 18.6 % High 11.6-14.6 [facility] Comment on above: Performed By: #### L 500.2500, L501.5200, L100.0100 ####[facility] [address] [place], [address] Hematocrit (Bld) [Volume fraction] 25.7 % Low 37-47 [facility] Comment on above: Performed By: #### L 500.2500, L501.5200, L100.0100 ####[facility] [address] [place], [address] Hemoglobin (Bld) [Mass/Vol] 8.2 g/dL Low 12.0-15.0 [facility] Comment on above: Performed By: #### L 500.2500, L501.5200, L100.0100 ####[facility] [address] [place], [address] IG% 1.700 High 0.0-0.9 [facility] Comment on above: Result Comment: IG% - Immature Granulocytes (promyelocytes, myelocytes andmetamyelocytes) > 1% indicates that a LEFT SHIFT is Present. Performed By: #### L 500.2500, L501.5200, L100.0100 ####[facility] [address] [place], [address] Lymphocytes/100 WBC (Bld) 18.0 % Low 19-41 [facility] Comment on above: Performed By: #### L 500.2500, L501.5200, L100.0100 ####[facility] [address] [place], [address] MCH (RBC) [Entitic mass] 29.6 pg Normal 27.0-32.0 [facility] Comment on above: Performed By: #### L 500.2500, L501.5200, L100.0100 ####[facility] [address] [place], [address] MCHC (RBC) [Mass/Vol] 31.9 g/dL Low 32-36 [facility] Comment on above: Performed By: #### L 500.2500, L501.5200, L100.0100 ####[facility] [address] [place], [address] MCV (RBC) [Entitic vol] 92.8 fL Normal 81-[address] [facility] Comment on above: Performed By: #### L 500.2500, L501.5200, L100.0100 ####[facility] [address] [place], [address] Monocytes/100 WBC (Bld) 10.9 % High 0-[address] [facility] Comment on above: Performed By: #### L 500.2500, L501.5200, L100.0100 ####[facility] [address] [place], [address] Neutrophils/100 WBC (Bld) 65.5 % Normal 47-70 [facility] Comment on above: Performed By: #### L 500.2500, L501.5200, L100.0100 ####[facility] [address] [place], [address] Nucleated RBC (Bld) [#/Vol] 0 10*3/uL Normal 0-5 [facility] Comment on above: Performed By: #### L 500.2500, L501.5200, L100.0100 ####[facility] [address] [place], [address] Platelet mean volume (Bld) [Entitic vol] 11.7 fL Normal 6.2-12.0 [facility] Comment on above: Performed By: #### L 500.2500, L501.5200, L100.0100 ####[facility] [address] [place], [address] Platelets (Bld) [#/Vol] 81 10*3/uL Low 150-[address] [facility] Comment on above: Performed By: #### L 500.2500, L501.5200, L100.0100 ####[facility] [address] [place], [address] RBC (Bld) [#/Vol] 2.77 10*6/uL Low 4.2-5.4 [facility] Comment on above: Performed By: #### L 500.2500, L501.5200, L100.0100 ####[facility] [address] [place], [address] RDW SD 63.5 fl High 35.1-43.9 [facility] Comment on above: Performed By: #### L 500.2500, L501.5200, L100.0100 ####[facility] [address] [place], [address] WBC (Bld) [#/Vol] 7.8 10*3/uL Normal 4.4-11.0 [facility] Comment on above: Performed By: #### L 500.2500, L501.5200, L100.0100 ####[facility] [address] [place], [address] MR/POSTOP.ANEon 01-21-2024 MR/POSTOP.ANE Normal [facility] Magnesiumon 01-21-2024 Magnesium [Mass/Vol] 1.8 mg/dL Normal 1.6-2.6 [facility] Comment on above: Performed By: #### L 500.2500, L501.5200, L100.0100 ####[facility] [address] [place], [address] Operative Reporton Operative Report Normal [facility] Operative Report Normal [facility] Surgery Specimen Level Von 0 01-21-2024 Surgery Specimen Level V Normal [facility] Comment on above: Performed By: #### P SUV ####[facility] [address] [place], [address] [id number] 01-20-2024 ABO and Rh group Nom (Bld) Blood group O Rh(D) positive Normal [facility] Comment on above: Order Comment: Numbe r of units to be transfused: 1N01/20 - send to OR with patientNpt. to get one 5 pack of platelets before OR 01/20 Performed By: #### B PPHR, BRC, B882-1, RIKKI ####[facility] [address] [place], [address] BFFPon 01-20-2024 FFP Normal [facility] Comment on above: Result Comment: [id number] OP FFP TRANSFUSED 01/22/24 0651 Performed By: #### B FFP ####[facility] [address] [place], [address] BPPHRon 01-20-2024 PPHR Normal [facility] Comment on above: Result Comment: [id number] OP PPHR TRANSFUSED 01/21/24 1334 Performed By: #### B PPHR, BRC, B882-1, RIKKI ####[facility] [address] [place], [address] BRCon 01-20-2024 RC Normal [facility] Comment on above: Result Comment: [id number] OP RC TRANSFUSED 01/22/24 [id number] OP RC TRANSFUSED 01/21/24 230 Performed By: #### B PPHR, BRC, B882-1, RIKKI ####[facility] [address] [place], [address] Basic Metabolic Profile (BMP )on 01-20-2024 BUN/CRE 10.6 RATIO Normal 10-20 [facility] Comment on above: Performed By: #### L 501.2300, L501.5200, L500.2500, L100.0100 ####[facility] [address] [place], [address] CA,Total 9.0 mg/dL Normal 8.5-10.1 [facility] Comment on above: Performed By: #### L 501.2300, L501.5200, L500.2500, L100.0100 ####[facility] [address] [place], [address] Chloride [Moles/Vol] 102 mmol/L Normal 98-107 [facility] Comment on above: Performed By: #### L 501.2300, L501.5200, L500.2500, L100.0100 ####[facility] [address] [place], [address] CO2 [Moles/Vol] 23.0 mmol/L Normal 21.0-32.0 [facility] Comment on above: Performed By: #### L 501.2300, L501.5200, L500.2500, L100.0100 ####[facility] [address] [place], [address] Creatinine [Mass/Vol] 6.48 mg/dL High 0.55-1.02 [facility] Comment on above: Result Comment: The validity of the calculated GFR GFRAA in patients over70 years has not been determined. Clinical correlation isessential. Performed By: #### L 501.2300, L501.5200, L500.2500, L100.0100 ####[facility] [address] [place], [address] ECRCL 4.64 ml/min Normal [facility] Comment on above: Performed By: #### L 501.2300, L501.5200, L500.2500, L100.0100 ####[facility] [address] [place], [address] EST GFR - AA 8 mL/min Low >60 [facility] Comment on above: Result Comment: Afri can [place] GFR Calc Performed By: #### L 501.2300, L501.5200, L500.2500, L100.0100 ####[facility] [address] [place], [address] GAP 8 Normal 5-15 [facility] Comment on above: Performed By: #### L 501.2300, L501.5200, L500.2500, L100.0100 ####[facility] [address] [place], [address] GFR/1.73 sq M.predicted among non-blacks MDRD (S/P/Bld) [Vol rate/Area] 7 mL/min/{1.73_m2} Low >60 [facility] Comment on above: Result Comment: Non- GFR Calc Performed By: #### L 501.2300, L501.5200, L500.2500, L100.0100 ####[facility] [address] [place], [address] Glucose [Mass/Vol] 124 mg/dL High 74-106 [facility] Comment on above: Result Comment: Fast ing Glucose result from 100 to 125 mg/dLsuggests IMPAIRED HOMEOSTASIS per A.D.A. criteria. Performed By: #### L 501.2300, L501.5200, L500.2500, L100.0100 ####[facility] [address] [place], [address] Potassium [Moles/Vol] 5.3 mmol/L High 3.5-5.1 [facility] Comment on above: Performed By: #### L 501.2300, L501.5200, L500.2500, L100.0100 ####[facility] [address] [place], [address] Sodium [Moles/Vol] 133 mmol/L Low 136-145 [facility] Comment on above: Performed By: #### L 501.2300, L501.5200, L500.2500, L100.0100 ####[facility] [address] [place], [address] Urea nitrogen [Mass/Vol] 69 mg/dL High 7-18 [facility] Comment on above: Performed By: #### L 501.2300, L501.5200, L500.2500, L100.0100 ####[facility] [address] [place], [address] CBC W/Diff, Automatedon -2 Absolute Lymph 1.85 X10 3/uL Normal 0.83-4.51 [facility] Comment on above: Performed By: #### L 501.2300, L501.5200, L500.2500, L100.0100 ####[facility] [address] [place], [address] Absolute Neut 5.1 X10 3/uL Normal 2.0-7.7 [facility] Comment on above: Performed By: #### L 501.2300, L501.5200, L500.2500, L100.0100 ####[facility] [address] [place], [address] Basophils/100 WBC (Bld) 0.4 % Normal 0-[address] [facility] Comment on above: Performed By: #### L 501.2300, L501.5200, L500.2500, L100.0100 ####[facility] [address] [place], [address] Eosinophils/100 WBC (Bld) 3.3 % Normal 0-5 [facility] Comment on above: Performed By: #### L 501.2300, L501.5200, L500.2500, L100.0100 ####[facility] [address] [place], [address] Erythrocyte distribution width (RBC) [Ratio] 19.3 % High 11.6-14.6 [facility] Comment on above: Performed By: #### L 501.2300, L501.5200, L500.2500, L100.0100 ####[facility] [address] [place], [address] Hematocrit (Bld) [Volume fraction] 23.0 % Low 37-47 [facility] Comment on above: Performed By: #### L 501.2300, L501.5200, L500.2500, L100.0100 ####[facility] [address] [place], [address] Hemoglobin (Bld) [Mass/Vol] 7.4 g/dL Low 12.0-15.0 [facility] Comment on above: Performed By: #### L 501.2300, L501.5200, L500.2500, L100.0100 ####[facility] [address] [place], [address] IG% 1.500 High 0.0-0.9 [facility] Comment on above: Result Comment: IG% - Immature Granulocytes (promyelocytes, myelocytes andmetamyelocytes) > 1% indicates that a LEFT SHIFT is Present. Performed By: #### L 501.2300, L501.5200, L500.2500, L100.0100 ####[facility] [address] [place], [address] Lymphocytes/100 WBC (Bld) 22.4 % Normal 19-41 [facility] Comment on above: Performed By: #### L 501.2300, L501.5200, L500.2500, L100.0100 ####[facility] [address] [place], [address] MCH (RBC) [Entitic mass] 29.5 pg Normal 27.0-32.0 [facility] Comment on above: Performed By: #### L 501.2300, L501.5200, L500.2500, L100.0100 ####[facility] [address] [place], [address] MCHC (RBC) [Mass/Vol] 32.2 g/dL Normal 32-36 [facility] Comment on above: Performed By: #### L 501.2300, L501.5200, L500.2500, L100.0100 ####[facility] [address] [place], [address] MCV (RBC) [Entitic vol] 91.6 fL Normal 81-[address] [facility] Comment on above: Performed By: #### L 501.2300, L501.5200, L500.2500, L100.0100 ####[facility] [address] [place], [address] Monocytes/100 WBC (Bld) 10.3 % High 0-[address] [facility] Comment on above: Performed By: #### L 501.2300, L501.5200, L500.2500, L100.0100 ####[facility] [address] [place], [address] Neutrophils/100 WBC (Bld) 62.1 % Normal 47-70 [facility] Comment on above: Performed By: #### L 501.2300, L501.5200, L500.2500, L100.0100 ####[facility] [address] [place], [address] Nucleated RBC (Bld) [#/Vol] 0 10*3/uL Normal 0-5 [facility] Comment on above: Performed By: #### L 501.2300, L501.5200, L500.2500, L100.0100 ####[facility] [address] [place], [address] Platelet mean volume (Bld) [Entitic vol] 11.6 fL Normal 6.2-12.0 [facility] Comment on above: Performed By: #### L 501.2300, L501.5200, L500.2500, L100.0100 ####[facility] [address] [place], [address] Platelets (Bld) [#/Vol] 60 10*3/uL Low 150-[address] [facility] Comment on above: Performed By: #### L 501.2300, L501.5200, L500.2500, L100.0100 ####[facility] [address] [place], [address] RBC (Bld) [#/Vol] 2.51 10*6/uL Low 4.2-5.4 [facility] Comment on above: Performed By: #### L 501.2300, L501.5200, L500.2500, L100.0100 ####[facility] [address] [place], [address] RDW SD 63.7 fl High 35.1-43.9 [facility] Comment on above: Performed By: #### L 501.2300, L501.5200, L500.2500, L100.0100 ####[facility] [address] [place], [address] WBC (Bld) [#/Vol] 8.3 10*3/uL Normal 4.4-11.0 [facility] Comment on above: Performed By: #### L 501.2300, L501.5200, L500.2500, L100.0100 ####[facility] [address] [place], [address] Consultation - Surgicalon Consultation - Surgical Normal [facility] Magnesiumon 01-20-2024 Magnesium [Mass/Vol] 1.5 mg/dL Low 1.6-2.6 [facility] Comment on above: Performed By: #### L 501.2300, L501.5200, L500.2500, L100.0100 ####[facility] [address] [place], [address] Phosphoruson 01-20-2024 Phosphate [Mass/Vol] 7.0 mg/dL High 2.5-4.9 [facility] Comment on above: Performed By: #### L 501.2300, L501.5200, L500.2500, L100.0100 ####[facility] [address] [place], [address] Basic Metabolic Profile (BMP )on 01-19-2024 BUN/CRE 11.2 RATIO Normal 10-20 [facility] Comment on above: Performed By: #### L 500.2500, L100.0500 ####[facility] [address] [place], [address] CA,Total 8.5 mg/dL Normal 8.5-10.1 [facility] Comment on above: Performed By: #### L 500.2500, L100.0500 ####[facility] [address] [place], [address] Chloride [Moles/Vol] 104 mmol/L Normal 98-107 [facility] Comment on above: Performed By: #### L 500.2500, L100.0500 ####[facility] [address] [place], [address] CO2 [Moles/Vol] 22.0 mmol/L Normal 21.0-32.0 [facility] Comment on above: Performed By: #### L 500.2500, L100.0500 ####[facility] [address] [place], [address] Creatinine [Mass/Vol] 5.46 mg/dL High 0.55-1.02 [facility] Comment on above: Result Comment: The validity of the calculated GFR GFRAA in patients over70 years has not been determined. Clinical correlation isessential. Performed By: #### L 500.2500, L100.0500 ####[facility] [address] [place], [address] ECRCL 5.51 ml/min Normal [facility] Comment on above: Performed By: #### L 500.2500, L100.0500 ####[facility] [address] [place], [address] EST GFR - AA 10 mL/min Low >60 [facility] Comment on above: Result Comment: Afri can Paragu[place] GFR Calc Performed By: #### L 500.2500, L100.0500 ####[facility] [address] [place], [address] GAP 11 Normal 5-15 [facility] Comment on above: Performed By: #### L 500.2500, L100.0500 ####[facility] [address] [place], [address] GFR/1.73 sq M.predicted among non-blacks MDRD (S/P/Bld) [Vol rate/Area] 8 mL/min/{1.73_m2} Low >60 [facility] Comment on above: Result Comment: Non- GFR Calc Performed By: #### L 500.2500, L100.0500 ####[facility] [address] [place], [address] Glucose [Mass/Vol] 108 mg/dL High 74-106 [facility] Comment on above: Result Comment: Fast ing Glucose result from 100 to 125 mg/dLsuggests IMPAIRED HOMEOSTASIS per A.D.A. criteria. Performed By: #### L 500.2500, L100.0500 ####[facility] [address] [place], [address] Potassium [Moles/Vol] 4.7 mmol/L Normal 3.5-5.1 [facility] Comment on above: Performed By: #### L 500.2500, L100.0500 ####[facility] [address] [place], [address] Sodium [Moles/Vol] 137 mmol/L Normal 136-145 [facility] Comment on above: Performed By: #### L 500.2500, L100.0500 ####[facility] [address] [place], [address] Urea nitrogen [Mass/Vol] 61 mg/dL High 7-18 [facility] Comment on above: Performed By: #### L 500.2500, L100.0500 ####[facility] [address] [place], [address] BUN Normal 7-18 [facility] Comment on above: Result Comment: Canc elled via OM: MD Ordered Performed By: #### L 500.2500 ####[facility] [address] [place], [address] BUN/CRE Normal 10-20 [facility] Comment on above: Result Comment: Canc elled via OM: MD Ordered Performed By: #### L 500.2500 ####[facility] [address] [place], [address] CA,Total Normal 8.5-10.1 [facility] Comment on above: Result Comment: Canc elled via OM: MD Ordered Performed By: #### L 500.2500 ####[facility] [address] [place], [address] CL Normal 98-107 [facility] Comment on above: Result Comment: Canc elled via OM: MD Ordered Performed By: #### L 500.2500 ####[facility] [address] [place], [address] CO2 Normal 21.0-32.0 [facility] Comment on above: Result Comment: Canc elled via OM: MD Ordered Performed By: #### L 500.2500 ####[facility] [address] [place], [address] CREAT,SERUM Normal 0.55-1.02 [facility] Comment on above: Result Comment: Canc elled via OM: MD Ordered Performed By: #### L 500.2500 ####[facility] [address] [place], [address] EST GFR Normal >60 [facility] Comment on above: Result Comment: Canc elled via OM: MD Ordered Performed By: #### L 500.2500 ####[facility] [address] [place], [address] EST GFR - AA Normal >60 [facility] Comment on above: Result Comment: Canc elled via OM: MD Ordered Performed By: #### L 500.2500 ####[facility] [address] [place], [address] GAP Normal 5-15 [facility] Comment on above: Result Comment: Canc elled via OM: MD Ordered Performed By: #### L 500.2500 ####[facility] [address] [place], [address] GLU Normal 74-106 [facility] Comment on above: Result Comment: Canc elled via OM: MD Ordered Performed By: #### L 500.2500 ####[facility] [address] [place], [address] Potassium Normal 3.5-5.1 [facility] Comment on above: Result Comment: Canc elled via OM: MD Ordered Performed By: #### L 500.2500 ####[facility] [address] [place], [address] Basic Metabolic Profile (BMP) Normal 136-145 [facility] Comment on above: Result Comment: Canc elled via OM: MD Ordered Performed By: #### L 500.2500 ####[facility] [address] [place], [address] CBC-Complete Blood Cnt No Di ffon 01-19-2024 PATH REV Reviewed Normal [facility] Comment on above: Order Comment: CRITI ANTIONETTE VALUE CALLED TO JOHN ALBERT01/17/24 0734 Juju Lopez.RESULTS READ BACK BY SAME.ANISOCYTOSIS 2+HYPOCHROMIA 1+ Result Comment: Leuk ocytosisSEVERE Normocytic anemia.MILD Thrombocytopenia.Clinical correlation necessary.Dax Mixon M.D. 01/19/24 AMENDED REPORT 01/19/24 1128 PATH REV previously reported as: Raysa torres Performed By: #### L 100.0500 ####[facility] [address] [place], [address] Erythrocyte distribution width (RBC) [Ratio] 19.8 % High 11.6-14.6 [facility] Comment on above: Performed By: #### L 500.2500, L100.0500 ####[facility] [address] [place], [address] Hematocrit (Bld) [Volume fraction] 27.2 % Low 37-47 [facility] Comment on above: Performed By: #### L 500.2500, L100.0500 ####[facility] [address] [place], [address] Hemoglobin (Bld) [Mass/Vol] 8.8 g/dL Low 12.0-15.0 [facility] Comment on above: Performed By: #### L 500.2500, L100.0500 ####[facility] [address] [place], [address] MCH (RBC) [Entitic mass] 29.3 pg Normal 27.0-32.0 [facility] Comment on above: Performed By: #### L 500.2500, L100.0500 ####[facility] [address] [place], [address] MCHC (RBC) [Mass/Vol] 32.4 g/dL Normal 32-36 [facility] Comment on above: Performed By: #### L 500.2500, L100.0500 ####[facility] [address] [place], [address] MCV (RBC) [Entitic vol] 90.7 fL Normal 81-[address] [facility] Comment on above: Performed By: #### L 500.2500, L100.0500 ####[facility] [address] [place], [address] Platelet mean volume (Bld) [Entitic vol] 11.0 fL Normal 6.2-12.0 [facility] Comment on above: Performed By: #### L 500.2500, L100.0500 ####[facility] [address] [place], [address] Platelets (Bld) [#/Vol] 69 10*3/uL Low 150-[address] [facility] Comment on above: Performed By: #### L 500.2500, L100.0500 ####[facility] [address] [place], [address] RBC (Bld) [#/Vol] 3.00 10*6/uL Low 4.2-5.4 [facility] Comment on above: Performed By: #### L 500.2500, L100.0500 ####[facility] [address] [place], [address] RDW SD 64.6 fl High 35.1-43.9 [facility] Comment on above: Performed By: #### L 500.2500, L100.0500 ####[facility] [address] [place], [address] WBC (Bld) [#/Vol] 9.0 10*3/uL Normal 4.4-11.0 [facility] Comment on above: Performed By: #### L 500.2500, L100.0500 ####[facility] [address] [place], [address] Hemoglobin A1con 01-19-2024 HbA1c (Bld) [Mass fraction] 5.2 % Normal 3.8-5.6 [facility] Comment on above: Result Comment: Norm al < 5.7 % Prediabetic 5.7 - 6.4 % Diabetic >or= 6.5 % Please note range changes. Performed By: #### L 501.9520, L501.9985 ####[facility] [address] [place], [address] Thyroid Stim Hormone (TSH)on 01-19-2024 TSH 1.270 uIU/mL Normal 0.358-3.740 [facility] Comment on above: Performed By: #### L 501.9520, L501.9985 ####[facility] [address] [place], [address] Basic Metabolic Profile (BMP )on 01-18-2024 BUN/CRE 11.1 RATIO Normal 10-20 [facility] Comment on above: Performed By: #### L 100.4500, L500.2500, L100.0500 ####[facility] [address] [place], [address] CA,Total 8.9 mg/dL Normal 8.5-10.1 [facility] Comment on above: Performed By: #### L 100.4500, L500.2500, L100.0500 ####[facility] [address] [place], [address] Chloride [Moles/Vol] 105 mmol/L Normal 98-107 [facility] Comment on above: Performed By: #### L 100.4500, L500.2500, L100.0500 ####[facility] [address] [place], [address] CO2 [Moles/Vol] 22.0 mmol/L Normal 21.0-32.0 [facility] Comment on above: Performed By: #### L 100.4500, L500.2500, L100.0500 ####[facility] [address] [place], [address] Creatinine [Mass/Vol] 4.34 mg/dL High 0.55-1.02 [facility] Comment on above: Result Comment: The validity of the calculated GFR GFRAA in patients over70 years has not been determined. Clinical correlation isessential. Performed By: #### L 100.4500, L500.2500, L100.0500 ####[facility] [address] [place], [address] ECRCL 6.93 ml/min Normal [facility] Comment on above: Performed By: #### L 100.4500, L500.2500, L100.0500 ####[facility] [address] [place], [address] EST GFR - AA 13 mL/min Low >60 [facility] Comment on above: Result Comment: Afri can [place] GFR Calc Performed By: #### L 100.4500, L500.2500, L100.0500 ####[facility] [address] [place], [address] GAP 11 Normal 5-15 [facility] Comment on above: Performed By: #### L 100.4500, L500.2500, L100.0500 ####[facility] [address] [place], [address] GFR/1.73 sq M.predicted among non-blacks MDRD (S/P/Bld) [Vol rate/Area] 10 mL/min/{1.73_m2} Low >60 [facility] Comment on above: Result Comment: Non- GFR Calc Performed By: #### L 100.4500, L500.2500, L100.0500 ####[facility] [address] [place], [address] Glucose [Mass/Vol] 96 mg/dL Normal 74-106 [facility] Comment on above: Performed By: #### L 100.4500, L500.2500, L100.0500 ####[facility] [address] [place], [address] Potassium [Moles/Vol] 4.3 mmol/L Normal 3.5-5.1 [facility] Comment on above: Performed By: #### L 100.4500, L500.2500, L100.0500 ####[facility] [address] [place], [address] Sodium [Moles/Vol] 138 mmol/L Normal 136-145 [facility] Comment on above: Performed By: #### L 100.4500, L500.2500, L100.0500 ####[facility] [address] [place], [address] Urea nitrogen [Mass/Vol] 48 mg/dL High 7-18 [facility] Comment on above: Performed By: #### L 100.4500, L500.2500, L100.0500 ####[facility] [address] [place], [address] BUN Normal 7-18 [facility] Comment on above: Result Comment: Canc elled via OM: MD Ordered Performed By: #### L 500.2500 ####[facility] [address] [place], [address] BUN/CRE Normal 10-20 [facility] Comment on above: Result Comment: Canc elled via OM: MD Ordered Performed By: #### L 500.2500 ####[facility] [address] [place], [address] CA,Total Normal 8.5-10.1 [facility] Comment on above: Result Comment: Canc elled via OM: MD Ordered Performed By: #### L 500.2500 ####[facility] [address] [place], [address] CL Normal 98-107 [facility] Comment on above: Result Comment: Canc elled via OM: MD Ordered Performed By: #### L 500.2500 ####[facility] [address] [place], [address] CO2 Normal 21.0-32.0 [facility] Comment on above: Result Comment: Canc elled via OM: MD Ordered Performed By: #### L 500.2500 ####[facility] [address] [place], [address] CREAT,SERUM Normal 0.55-1.02 [facility] Comment on above: Result Comment: Canc elled via OM: MD Ordered Performed By: #### L 500.2500 ####[facility] [address] [place], [address] EST GFR Normal >60 [facility] Comment on above: Result Comment: Canc elled via OM: MD Ordered Performed By: #### L 500.2500 ####[facility] [address] [place], [address] EST GFR - AA Normal >60 [facility] Comment on above: Result Comment: Canc elled via OM: MD Ordered Performed By: #### L 500.2500 ####[facility] [address] [place], [address] GAP Normal 5-15 [facility] Comment on above: Result Comment: Canc elled via OM: MD Ordered Performed By: #### L 500.2500 ####[facility] [address] [place], [address] GLU Normal 74-106 [facility] Comment on above: Result Comment: Canc elled via OM: MD Ordered Performed By: #### L 500.2500 ####[facility] [address] [place], [address] Potassium Normal 3.5-5.1 [facility] Comment on above: Result Comment: Canc elled via OM: MD Ordered Performed By: #### L 500.2500 ####[facility] [address] [place], [address] Basic Metabolic Profile (BMP) Normal 136-145 [facility] Comment on above: Result Comment: Canc elled via OM: MD Ordered Performed By: #### L 500.2500 ####[facility] [address] [place], [address] CBC-Complete Blood Cnt No Di ffon 01-18-2024 Erythrocyte distribution width (RBC) [Ratio] 20.2 % High 11.6-14.6 [facility] Comment on above: Performed By: #### L 100.4500, L500.2500, L100.0500 ####[facility] [address] [place], [address] Hematocrit (Bld) [Volume fraction] 30.0 % Low 37-47 [facility] Comment on above: Performed By: #### L 100.4500, L500.2500, L100.0500 ####[facility] [address] [place], [address] Hemoglobin (Bld) [Mass/Vol] 9.7 g/dL Low 12.0-15.0 [facility] Comment on above: Performed By: #### L 100.4500, L500.2500, L100.0500 ####[facility] [address] [place], [address] MCH (RBC) [Entitic mass] 29.0 pg Normal 27.0-32.0 [facility] Comment on above: Performed By: #### L 100.4500, L500.2500, L100.0500 ####[facility] [address] [place], [address] MCHC (RBC) [Mass/Vol] 32.3 g/dL Normal 32-36 [facility] Comment on above: Performed By: #### L 100.4500, L500.2500, L100.0500 ####[facility] [address] [place], [address] MCV (RBC) [Entitic vol] 89.8 fL Normal 81-[address] [facility] Comment on above: Performed By: #### L 100.4500, L500.2500, L100.0500 ####[facility] [address] [place], [address] Platelet mean volume (Bld) [Entitic vol] 11.6 fL Normal 6.2-12.0 [facility] Comment on above: Performed By: #### L 100.4500, L500.2500, L100.0500 ####[facility] [address] [place], [address] Platelets (Bld) [#/Vol] 76 10*3/uL Low 150-[address] [facility] Comment on above: Performed By: #### L 100.4500, L500.2500, L100.0500 ####[facility] [address] [place], [address] RBC (Bld) [#/Vol] 3.34 10*6/uL Low 4.2-5.4 [facility] Comment on above: Performed By: #### L 100.4500, L500.2500, L100.0500 ####[facility] [address] [place], [address] RDW SD 63.5 fl High 35.1-43.9 [facility] Comment on above: Performed By: #### L 100.4500, L500.2500, L100.0500 ####[facility] [address] [place], [address] WBC (Bld) [#/Vol] 9.6 10*3/uL Normal 4.4-11.0 [facility] Comment on above: Performed By: #### L 100.4500, L500.2500, L100.0500 ####[facility] [address] [place], [address] Differential Commenton 01-17 SMEAR COMMENT S Normal [facility] Comment on above: Result Comment: ANIS OCYTOSIS 1+ Performed By: #### L 100.4500, L500.2500, L100.0500 ####[facility] [address] [place], [address] Basic Metabolic Profile (BMP )on 01-17-2024 BUN/CRE 13.6 RATIO Normal 10-20 [facility] Comment on above: Performed By: #### L 500.2500 ####[facility] [address] [place], [address] CA,Total 8.1 mg/dL Low 8.5-10.1 [facility] Comment on above: Performed By: #### L 500.2500 ####[facility] [address] [place], [address] Chloride [Moles/Vol] 107 mmol/L Normal 98-107 [facility] Comment on above: Performed By: #### L 500.2500 ####[facility] [address] [place], [address] CO2 [Moles/Vol] 19.0 mmol/L Low 21.0-32.0 [facility] Comment on above: Performed By: #### L 500.2500 ####[facility] [address] [place], [address] Creatinine [Mass/Vol] 5.90 mg/dL High 0.55-1.02 [facility] Comment on above: Result Comment: The validity of the calculated GFR GFRAA in patients over70 years has not been determined. Clinical correlation isessential. Performed By: #### L 500.2500 ####[facility] [address] [place], [address] ECRCL 5.10 ml/min Normal [facility] Comment on above: Performed By: #### L 500.2500 ####[facility] [address] [place], [address] EST GFR - AA 9 mL/min Low >60 [facility] Comment on above: Result Comment: Afri can [place] GFR Calc Performed By: #### L 500.2500 ####[facility] [address] [place], [address] GAP 10 Normal 5-15 [facility] Comment on above: Performed By: #### L 500.2500 ####[facility] [address] [place], [address] GFR/1.73 sq M.predicted among non-blacks MDRD (S/P/Bld) [Vol rate/Area] 7 mL/min/{1.73_m2} Low >60 [facility] Comment on above: Result Comment: Non- GFR Calc Performed By: #### L 500.2500 ####[facility] [address] [place], [address] Glucose [Mass/Vol] 123 mg/dL High 74-106 [facility] Comment on above: Result Comment: Fast ing Glucose result from 100 to 125 mg/dLsuggests IMPAIRED HOMEOSTASIS per A.D.A. criteria. Performed By: #### L 500.2500 ####[facility] [address] [place], [address] Potassium [Moles/Vol] 5.5 mmol/L High 3.5-5.1 [facility] Comment on above: Performed By: #### L 500.2500 ####[facility] [address] [place], [address] Sodium [Moles/Vol] 136 mmol/L Normal 136-145 [facility] Comment on above: Performed By: #### L 500.2500 ####[facility] [address] [place], [address] Urea nitrogen [Mass/Vol] 80 mg/dL High 7-18 [facility] Comment on above: Performed By: #### L 500.2500 ####[facility] [address] [place], [address] BUN Normal 7-18 [facility] Comment on above: Result Comment: Nena amin via OM: Ordered Performed By: #### L 500.2500 ####[facility] [address] [place], [address] BUN/CRE Normal 10-20 [facility] Comment on above: Result Comment: Canc elled via OM: MD Ordered Performed By: #### L 500.2500 ####[facility] [address] [place], [address] CA,Total Normal 8.5-10.1 [facility] Comment on above: Result Comment: Canc elled via OM: MD Ordered Performed By: #### L 500.2500 ####[facility] [address] [place], [address] CL Normal 98-107 [facility] Comment on above: Result Comment: Canc elled via OM: MD Ordered Performed By: #### L 500.2500 ####[facility] [address] [place], [address] CO2 Normal 21.0-32.0 [facility] Comment on above: Result Comment: Canc elled via OM: MD Ordered Performed By: #### L 500.2500 ####[facility] [address] [place], [address] CREAT,SERUM Normal 0.55-1.02 [facility] Comment on above: Result Comment: Canc elled via OM: MD Ordered Performed By: #### L 500.2500 ####[facility] [address] [place], [address] EST GFR Normal >60 [facility] Comment on above: Result Comment: Canc elled via OM: MD Ordered Performed By: #### L 500.2500 ####[facility] [address] [place], [address] EST GFR - AA Normal >60 [facility] Comment on above: Result Comment: Canc elled via OM: MD Ordered Performed By: #### L 500.2500 ####[facility] [address] [place], [address] GAP Normal 5-15 [facility] Comment on above: Result Comment: Canc elled via OM: MD Ordered Performed By: #### L 500.2500 ####[facility] [address] [place], [address] GLU Normal 74-106 [facility] Comment on above: Result Comment: Canc elled via OM: MD Ordered Performed By: #### L 500.2500 ####[facility] [address] [place], [address] Potassium Normal 3.5-5.1 [facility] Comment on above: Result Comment: Canc elled via OM: MD Ordered Performed By: #### L 500.2500 ####[facility] [address] [place], [address] Basic Metabolic Profile (BMP) Normal 136-145 [facility] Comment on above: Result Comment: Canc elled via OM: MD Ordered Performed By: #### L 500.2500 ####[facility] [address] [place], [address] CXR for Line Placementon CXR for Line Placement Normal [facility] Consultation - Surgicalon Consultation - Surgical Normal [facility] BRCon 01-16-2024 RC Normal [facility] Comment on above: Result Comment: [id number] OP RC TRANSFUSED 01/17/24 [id number] OP RC TRANSFUSED 01/17/24 1341 Performed By: #### B , [facility] ####[facility] [address] [place], [address] Basic Metabolic Profile (BMP )on 01-16-2024 BUN/CRE 13.8 RATIO Normal 10-20 [facility] Comment on above: Performed By: #### L 100.0500, L500.2500 ####[facility] [address] [place], [address] CA,Total 8.4 mg/dL Low 8.5-10.1 [facility] Comment on above: Performed By: #### L 100.0500, L500.2500 ####[facility] [address] [place], [address] Chloride [Moles/Vol] 108 mmol/L High 98-107 [facility] Comment on above: Performed By: #### L 100.0500, L500.2500 ####[facility] [address] [place], [address] CO2 [Moles/Vol] 19.0 mmol/L Low 21.0-32.0 [facility] Comment on above: Performed By: #### L 100.0500, L500.2500 ####[facility] [address] [place], [address] Creatinine [Mass/Vol] 4.87 mg/dL High 0.55-1.02 [facility] Comment on above: Result Comment: The validity of the calculated GFR GFRAA in patients over70 years has not been determined. Clinical correlation isessential. Performed By: #### L 100.0500, L500.2500 ####[facility] [address] [place], [address] ECRCL 6.18 ml/min Normal [facility] Comment on above: Performed By: #### L 100.0500, L500.2500 ####[facility] [address] [place], [address] EST GFR - AA 11 mL/min Low >60 [facility] Comment on above: Result Comment: Afri can [place] GFR Calc Performed By: #### L 100.0500, L500.2500 ####[facility] [address] [place], [address] GAP 9 Normal 5-15 [facility] Comment on above: Performed By: #### L 100.0500, L500.2500 ####[facility] [address] [place], [address] GFR/1.73 sq M.predicted among non-blacks MDRD (S/P/Bld) [Vol rate/Area] 9 mL/min/{1.73_m2} Low >60 [facility] Comment on above: Result Comment: Non- GFR Calc Performed By: #### L 100.0500, L500.2500 ####[facility] [address] [place], [address] Glucose [Mass/Vol] 124 mg/dL High 74-106 [facility] Comment on above: Result Comment: Fast ing Glucose result from 100 to 125 mg/dLsuggests IMPAIRED HOMEOSTASIS per A.D.A. criteria. Performed By: #### L 100.0500, L500.2500 ####[facility] [address] [place], [address] Potassium [Moles/Vol] 5.9 mmol/L High 3.5-5.1 [facility] Comment on above: Performed By: #### L 100.0500, L500.2500 ####[facility] [address] [place], [address] Sodium [Moles/Vol] 136 mmol/L Normal 136-145 [facility] Comment on above: Performed By: #### L 100.0500, L500.2500 ####[facility] [address] [place], [address] Urea nitrogen [Mass/Vol] 67 mg/dL High 7-18 [facility] Comment on above: Performed By: #### L 100.0500, L500.2500 ####[facility] [address] [place], [address] CBC-Complete Blood Cnt No Di ffon 01-16-2024 HCT Normal 37-47 [facility] Comment on above: Order Comment: Speci men 0920:[id number]: OM requested cancellation of orderCBC ([id number]) Result Comment: OM R EQUESTED CANCELLATION OF ORDER Performed By: #### L 100.0500 ####[facility] [address] [place], [address] HGB Normal 12.0-15.0 [facility] Comment on above: Order Comment: Speci hilda 0920:[id number]: OM requested cancellation of orderCBC ([id number]) Result Comment: OM R EQUESTED CANCELLATION OF ORDER Performed By: #### L 100.0500 ####[facility] [address] [place], [address] MCH Normal 27.0-32.0 [facility] Comment on above: Order Comment: Speci hilda Dumont20:[id number]: OM requested cancellation of orderCBC ([id number]) Result Comment: OM R EQUESTED CANCELLATION OF ORDER Performed By: #### L 100.0500 ####[facility] [address] [place], [address] MCHC Normal 32-36 [facility] Comment on above: Order Comment: Spec hilda Dumont20:[id number]: OM requested cancellation of orderCBC ([id number]) Result Comment: OM R EQUESTED CANCELLATION OF ORDER Performed By: #### L 100.0500 ####[facility] [address] [place], [address] MCV Normal 81-99 [facility] Comment on above: Order Comment: Speci hilda 0920:[id number]: OM requested cancellation of orderCBC ([id number]) Result Comment: OM R EQUESTED CANCELLATION OF ORDER Performed By: #### L 100.0500 ####[facility] [address] [place], [address] PLT Normal 150-450 [facility] Comment on above: Order Comment: Speci hilda 20:[id number]: OM requested cancellation of orderCBC ([id number]) Result Comment: OM R EQUESTED CANCELLATION OF ORDER Performed By: #### L 100.0500 ####[facility] [address] [place], [address] RBC Normal 4.2-5.4 [facility] Comment on above: Order Comment: Speci men 0920:[id number]: OM requested cancellation of orderCBC ([id number]) Result Comment: OM R EQUESTED CANCELLATION OF ORDER Performed By: #### L 100.0500 ####[facility] [address] [place], [address] RDW CV Normal 11.6-14.6 [facility] Comment on above: Order Comment: Speci [facility]20:[id number]: OM requested cancellation of orderCBC ([id number]) Result Comment: OM R EQUESTED CANCELLATION OF ORDER Performed By: #### L 100.0500 ####[facility] [address] [place], [address] RDW SD Normal 35.1-43.9 [facility] Comment on above: Order Comment: Speci hilda 0920:[id number]: OM requested cancellation of orderCBC ([id number]) Result Comment: OM R EQUESTED CANCELLATION OF ORDER Performed By: #### L 100.0500 ####[facility] [address] [place], [address] WBC Normal 4.4-11.0 [facility] Comment on above: Order Comment: Speci [facility] 0920:[id number]: OM requested cancellation of orderCBC ([id number]) Result Comment: OM R EQUESTED CANCELLATION OF ORDER Performed By: #### L 100.0500 ####[facility] [address] [place], [address] Erythrocyte distribution width (RBC) [Ratio] 18.1 % High 11.6-14.6 [facility] Comment on above: Performed By: #### L 100.0500, L500.2500 ####[facility] [address] [place], [address] Hematocrit (Bld) [Volume fraction] 19.9 % Low 37-47 [facility] Comment on above: Performed By: #### L 100.0500, L500.2500 ####[facility] [address] [place], [address] Hemoglobin (Bld) [Mass/Vol] 6.2 g/dL Low 12.0-15.0 [facility] Comment on above: Performed By: #### L 100.0500, L500.2500 ####[facility] [address] [place], [address] MCH (RBC) [Entitic mass] 31.0 pg Normal 27.0-32.0 [facility] Comment on above: Performed By: #### L 100.0500, L500.2500 ####[facility] [address] [place], [address] MCHC (RBC) [Mass/Vol] 31.2 g/dL Low 32-36 [facility] Comment on above: Performed By: #### L 100.0500, L500.2500 ####[facility] [address] [place], [address] MCV (RBC) [Entitic vol] 99.5 fL High 81-[address] [facility] Comment on above: Performed By: #### L 100.0500, L500.2500 ####[facility] [address] [place], [address] Platelet mean volume (Bld) [Entitic vol] 11.1 fL Normal 6.2-12.0 [facility] Comment on above: Performed By: #### L 100.0500, L500.2500 ####[facility] [address] [place], [address] Platelets (Bld) [#/Vol] 107 10*3/uL Low 150-450 [facility] Comment on above: Performed By: #### L 100.0500, L500.2500 ####[facility] [address] [place], [address] RBC (Bld) [#/Vol] 2.00 10*6/uL Low 4.2-5.4 [facility] Comment on above: Performed By: #### L 100.0500, L500.2500 ####[facility] [address] [place], [address] RDW SD 63.2 fl High 35.1-43.9 [facility] Comment on above: Performed By: #### L 100.0500, L500.2500 ####[facility] [address] [place], [address] WBC (Bld) [#/Vol] 13.4 10*3/uL High 4.4-11.0 [facility] Comment on above: Performed By: #### L 100.0500, L500.2500 ####[facility] [address] [place], [address] Type AND Screenon 01-16-2024 Ab SCREEN GEL Negative Normal [facility] Comment on above: Order Comment: CMV N EG? NNumber of units to transfuse: 2Is there a >20% drop in pt's BP? NIs the pt's CVP (central venous pressure) <3 cm/H2O? NIs the EBL >/= 1000ml in adults or >/= 12ml/kg in children?YIs there an orthostatic change in pt's BP(SBP drop>10mmHg)? NIs pt's HR > 100 bpm? NReason for Ordering Blood: AcuteAre the blood/blood products to be transfused? YIs the patient having/had surgery? YHéctor Esparza Performed By: #### B TS, BRC ####[facility] [address] [place], [address] ABO and Rh group Nom (Bld) Blood group O Rh(D) positive Normal [facility] Comment on above: Order Comment: CMV N EG? NNumber of units to transfuse: 2Is there a >20% drop in pt's BP? NIs the pt's CVP (central venous pressure) <3 cm/H2O? NIs the EBL >/= 1000ml in adults or >/= 12ml/kg in children?YIs there an orthostatic change in pt's BP(SBP drop>10mmHg)? NIs pt's HR > 100 bpm? NReason for Ordering Blood: AcuteAre the blood/blood products to be transfused? YIs the patient having/had surgery? YHéctor Esparza Performed By: #### B , [facility] ####[facility] [address] [place], [place], [id number] Basic Metabolic Profile (BMP )on 01-15-2024 BUN/CRE 12.2 RATIO Normal 10-20 [facility] Comment on above: Performed By: #### L 500.2500 ####[facility] [address] [place], [address] CA,Total 8.5 mg/dL Normal 8.5-10.1 [facility] Comment on above: Performed By: #### L 500.2500 ####[facility] [address] [place], [address] Chloride [Moles/Vol] 111 mmol/L High 98-107 [facility] Comment on above: Performed By: #### L 500.2500 ####[facility] [address] [place], [address] CO2 [Moles/Vol] 20.0 mmol/L Low 21.0-32.0 [facility] Comment on above: Performed By: #### L 500.2500 ####[facility] [address] [place], [address] Creatinine [Mass/Vol] 3.29 mg/dL High 0.55-1.02 [facility] Comment on above: Result Comment: The validity of the calculated GFR GFRAA in patients over70 years has not been determined. Clinical correlation isessential. Performed By: #### L 500.2500 ####[facility] [address] [place], [address] ECRCL 9.14 ml/min Normal [facility] Comment on above: Performed By: #### L 500.2500 ####[facility] [address] [place], [address] EST GFR - AA 17 mL/min Low >60 [facility] Comment on above: Result Comment: Afri can [place] GFR Calc Performed By: #### L 500.2500 ####[facility] [address] [place], [address] GAP 6 Normal 5-15 [facility] Comment on above: Performed By: #### L 500.2500 ####[facility] [address] [place], [address] GFR/1.73 sq M.predicted among non-blacks MDRD (S/P/Bld) [Vol rate/Area] 14 mL/min/{1.73_m2} Low >60 [facility] Comment on above: Result Comment: Non- GFR Calc Performed By: #### L 500.2500 ####[facility] [address] [place], [address] Glucose [Mass/Vol] 193 mg/dL High 74-106 [facility] Comment on above: Result Comment: Fast ing Glucose result greater than or equal to 126 mg/dLsuggests DIABETES MELLITUS per A.D.A. criteria. Performed By: #### L 500.2500 ####[facility] [address] [place], [address] Potassium [Moles/Vol] 5.5 mmol/L High 3.5-5.1 [facility] Comment on above: Performed By: #### L 500.2500 ####[facility] [address] [place], [address] Sodium [Moles/Vol] 137 mmol/L Normal 136-145 [facility] Comment on above: Performed By: #### L 500.2500 ####[facility] [address] [place], [address] Urea nitrogen [Mass/Vol] 40 mg/dL High 7-18 [facility] Comment on above: Performed By: #### L 500.2500 ####[facility] [address] [place], [address] CBC-Complete Blood Cnt No Di ffon 01-15-2024 Erythrocyte distribution width (RBC) [Ratio] 17.0 % High 11.6-14.6 [facility] Comment on above: Performed By: #### L 100.0500 ####[facility] [address] [place], [address] Hematocrit (Bld) [Volume fraction] 31.7 % Low 37-47 [facility] Comment on above: Performed By: #### L 100.0500 ####[facility] [address] [place], [address] Hemoglobin (Bld) [Mass/Vol] 9.8 g/dL Low 12.0-15.0 [facility] Comment on above: Performed By: #### L 100.0500 ####[facility] [address] [place], [address] MCH (RBC) [Entitic mass] 30.4 pg Normal 27.0-32.0 [facility] Comment on above: Performed By: #### L 100.0500 ####[facility] [address] [place], [address] MCHC (RBC) [Mass/Vol] 30.9 g/dL Low 32-36 [facility] Comment on above: Performed By: #### L 100.0500 ####[facility] [address] [place], [address] MCV (RBC) [Entitic vol] 98.4 fL Normal 81-[address] [facility] Comment on above: Performed By: #### L 100.0500 ####[facility] [address] [place], [address] Platelet mean volume (Bld) [Entitic vol] 10.8 fL Normal 6.2-12.0 [facility] Comment on above: Performed By: #### L 100.0500 ####[facility] [address] [place], [address] Platelets (Bld) [#/Vol] 165 10*3/uL Normal 150-450 [facility] Comment on above: Performed By: #### L 100.0500 ####[facility] [address] [place], [address] RBC (Bld) [#/Vol] 3.22 10*6/uL Low 4.2-5.4 [facility] Comment on above: Performed By: #### L 100.0500 ####[facility] [address] [place], [address] RDW SD 58.0 fl High 35.1-43.9 [facility] Comment on above: Performed By: #### L 100.0500 ####[facility] [address] [place], [address] WBC (Bld) [#/Vol] 22.0 10*3/uL High 4.4-11.0 [facility] Comment on above: Performed By: #### L 100.0500 ####[facility] [address] [place], [address] Consultation - Nephrologyon 01-15-2024 Consultation - Nephrology Normal [facility] 12 Lead EKGon 01-14-2024 12 Lead EKG Normal [facility] 12 Lead EKG Normal [facility] Basic Metabolic Profile (BMP )on 01-14-2024 BUN/CRE 8.3 RATIO Low 10-20 [facility] Comment on above: Order Comment: To be done in PACU Performed By: #### L 500.2500, L100.0500 ####[facility] [address] [place], [address] CA,Total 8.6 mg/dL Normal 8.5-10.1 [facility] Comment on above: Order Comment: To be done in PACU Performed By: #### L 500.2500, L100.0500 ####[facility] [address] [place], [address] Chloride [Moles/Vol] 108 mmol/L High 98-107 [facility] Comment on above: Order Comment: To be done in PACU Performed By: #### L 500.2500, L100.0500 ####[facility] [address] [place], [address] CO2 [Moles/Vol] 19.0 mmol/L Low 21.0-32.0 [facility] Comment on above: Order Comment: To be done in PACU Performed By: #### L 500.2500, L100.0500 ####[facility] [address] [place], [address] Creatinine [Mass/Vol] 3.24 mg/dL High 0.55-1.02 [facility] Comment on above: Order Comment: To be done in PACU Result Comment: The validity of the calculated GFR GFRAA in patients over70 years has not been determined. Clinical correlation isessential. Performed By: #### L 500.2500, L100.0500 ####[facility] [address] [place], [address] ECRCL 9.18 ml/min Normal [facility] Comment on above: Order Comment: To be done in PACU Performed By: #### L 500.2500, L100.0500 ####[facility] [address] [place], [address] EST GFR - AA 18 mL/min Low >60 [facility] Comment on above: Order Comment: To be done in PACU Result Comment: Afri can [place] GFR Calc Performed By: #### L 500.2500, L100.0500 ####[facility] [address] [place], [address] GAP 10 Normal 5-15 [facility] Comment on above: Order Comment: To be done in PACU Performed By: #### L 500.2500, L100.0500 ####[facility] [address] [place], [address] GFR/1.73 sq M.predicted among non-blacks MDRD (S/P/Bld) [Vol rate/Area] 15 mL/min/{1.73_m2} Low >60 [facility] Comment on above: Order Comment: To be done in PACU Result Comment: Non- GFR Calc Performed By: #### L 500.2500, L100.0500 ####[facility] [address] [place], [address] Glucose [Mass/Vol] 189 mg/dL High 74-106 [facility] Comment on above: Order Comment: To be done in PACU Result Comment: Fast ing Glucose result greater than or equal to 126 mg/dLsuggests DIABETES MELLITUS per A.D.A. criteria. Performed By: #### L 500.2500, L100.0500 ####[facility] [address] [place], [address] Potassium [Moles/Vol] 5.0 mmol/L Normal 3.5-5.1 [facility] Comment on above: Order Comment: To be done in PACU Performed By: #### L 500.2500, L100.0500 ####[facility] [address] [place], [address] Sodium [Moles/Vol] 137 mmol/L Normal 136-145 [facility] Comment on above: Order Comment: To be done in PACU Performed By: #### L 500.2500, L100.0500 ####[facility] [address] [place], [address] Urea nitrogen [Mass/Vol] 27 mg/dL High 7-18 [facility] Comment on above: Order Comment: To be done in PACU Performed By: #### L 500.2500, L100.0500 ####[facility] [address] [place], [address] CBC-Complete Blood Cnt No Di ffon 01-14-2024 Erythrocyte distribution width (RBC) [Ratio] 16.7 % High 11.6-14.6 [facility] Comment on above: Order Comment: Comme nts: To be done in PACU Performed By: #### L 500.2500, L100.0500 ####[facility] [address] [place], [address] Hematocrit (Bld) [Volume fraction] 33.0 % Low 37-47 [facility] Comment on above: Order Comment: Comme nts: To be done in PACU Performed By: #### L 500.2500, L100.0500 ####[facility] [address] [place], [address] Hemoglobin (Bld) [Mass/Vol] 10.1 g/dL Low 12.0-15.0 [facility] Comment on above: Order Comment: Comme nts: To be done in PACU Performed By: #### L 500.2500, L100.0500 ####[facility] [address] [place], [address] MCH (RBC) [Entitic mass] 30.5 pg Normal 27.0-32.0 [facility] Comment on above: Order Comment: Comme nts: To be done in PACU Performed By: #### L 500.2500, L100.0500 ####[facility] [address] [place], [address] MCHC (RBC) [Mass/Vol] 30.6 g/dL Low 32-36 [facility] Comment on above: Order Comment: Comme nts: To be done in PACU Performed By: #### L 500.2500, L100.0500 ####[facility] [address] [place], [address] MCV (RBC) [Entitic vol] 99.7 fL High 81-99 [facility] Comment on above: Order Comment: Comme nts: To be done in PACU Performed By: #### L 500.2500, L100.0500 ####[facility] [address] [place], [address] Platelet mean volume (Bld) [Entitic vol] 11.5 fL Normal 6.2-12.0 [facility] Comment on above: Order Comment: Comme nts: To be done in PACU Performed By: #### L 500.2500, L100.0500 ####[facility] [address] [place], [address] Platelets (Bld) [#/Vol] 132 10*3/uL Low 150-450 [facility] Comment on above: Order Comment: Comme nts: To be done in PACU Performed By: #### L 500.2500, L100.0500 ####[facility] [address] [place], [address] RBC (Bld) [#/Vol] 3.31 10*6/uL Low 4.2-5.4 [facility] Comment on above: Order Comment: Comme nts: To be done in PACU Performed By: #### L 500.2500, L100.0500 ####[facility] [address] [place], [address] RDW SD 59.0 fl High 35.1-43.9 [facility] Comment on above: Order Comment: Comme nts: To be done in PACU Performed By: #### L 500.2500, L100.0500 ####[facility] [address] [place], [address] WBC (Bld) [#/Vol] 7.9 10*3/uL Normal 4.4-11.0 [facility] Comment on above: Order Comment: Comme nts: To be done in PACU Performed By: #### L 500.2500, L100.0500 ####[facility] [address] [place], [address] Discharge Instructionon 12-27 Discharge Instruction Normal [facility] HH, Hemoglobin AND Hematocri ton 01-14-2024 Hematocrit (Bld) [Volume fraction] 28.6 % Low 37-47 [facility] Comment on above: Performed By: #### L 100.0600 ####[facility] [address] [place], [address] Hemoglobin (Bld) [Mass/Vol] 9.0 g/dL Low 12.0-15.0 [facility] Comment on above: Performed By: #### L 100.0600 ####[facility] [address] [place], [address] MR/POSTOP.ANEon 01-14-2024 MR/POSTOP.ANE Normal [facility] MR/POSTOP.ANE Normal [facility] MR/AIGRNUZU2an 01-14-2024 MR/POSTOPAN2 [facility] Operative Reporton Operative Report Normal [facility] Surgery Specimen Level Von 0 01-14-2024 Surgery Specimen Level V Normal [facility] Comment on above: Performed By: #### P SUV ####[facility] [address] [place], [address] CBC W/Diff, Automatedon - SMEAR COMMENT SCANNED Normal [facility] Comment on above: Result Comment: 1+ A NISOCYTOSIS Performed By: #### L 500.4050, L501.9520, L100.0100 ####[facility] [address] [place], [address] Comprehensive Metabolic Prof ilon 11-07-2023 Albumin [Mass/Vol] 2.8 g/dL Low 3.2-5.0 [facility] Comment on above: Performed By: #### L 500.4050, L501.9520, L100.0100 ####[facility] [address] [place], [address] Albumin/Globulin [Mass ratio] 0.9 {ratio} Normal 0.9-2.4 [facility] Comment on above: Performed By: #### L 500.4050, L501.9520, L100.0100 ####[facility] [address] [place], [address] ALK P 77 U/L Normal 45-117 [facility] Comment on above: Performed By: #### L 500.4050, L501.9520, L100.0100 ####[facility] [address] [place], [address] ALT [Catalytic activity/Vol] 10 U/L Low 13-56 [facility] Comment on above: Performed By: #### L 500.4050, L501.9520, L100.0100 ####[facility] [address] [place], [address] AST [Catalytic activity/Vol] 20 U/L Normal 15-37 [facility] Comment on above: Performed By: #### L 500.4050, L501.9520, L100.0100 ####[facility] [address] [place], [address] Bilirubin [Mass/Vol] 0.30 mg/dL Normal 0.20-1.00 [facility] Comment on above: Result Comment: For patients on eltrombopag therapy, use of Dimension [place] TBIL is not recommended. Performed By: #### L 500.4050, L501.9520, L100.0100 ####[facility] [address] [place], [address] BUN/CRE 7.9 RATIO Low 10-20 [facility] Comment on above: Performed By: #### L 500.4050, L501.9520, L100.0100 ####[facility] [address] [place], [address] CA,Total 9.2 mg/dL Normal 8.5-10.1 [facility] Comment on above: Performed By: #### L 500.4050, L501.9520, L100.0100 ####[facility] [address] [place], [address] Chloride [Moles/Vol] 97 mmol/L Low 98-107 [facility] Comment on above: Performed By: #### L 500.4050, L501.9520, L100.0100 ####[facility] [address] [place], [address] CO2 [Moles/Vol] 30.0 mmol/L Normal 21.0-32.0 [facility] Comment on above: Performed By: #### L 500.4050, L501.9520, L100.0100 ####[facility] [address] [place], [address] Creatinine [Mass/Vol] 2.28 mg/dL High 0.55-1.02 [facility] Comment on above: Result Comment: The validity of the calculated GFR GFRAA in patients over70 years has not been determined. Clinical correlation isessential. Performed By: #### L 500.4050, L501.9520, L100.0100 ####[facility] [address] [place], [address] EST GFR - AA 26 mL/min Low >60 [facility] Comment on above: Result Comment: Afri can [place] GFR Calc Performed By: #### L 500.4050, L501.9520, L100.0100 ####[facility] [address] [place], [address] GAP 9 Normal 5-15 [facility] Comment on above: Performed By: #### L 500.4050, L501.9520, L100.0100 ####[facility] [address] [place], [address] GFR/1.73 sq M.predicted among non-blacks MDRD (S/P/Bld) [Vol rate/Area] 22 mL/min/{1.73_m2} Low >60 [facility] Comment on above: Result Comment: Non- GFR Calc Performed By: #### L 500.4050, L501.9520, L100.0100 ####[facility] [address] [place], [address] Globulin (S) [Mass/Vol] 3.1 g/dL Normal 2.2-4.2 [facility] Comment on above: Performed By: #### L 500.4050, L501.9520, L100.0100 ####[facility] [address] [place], [address] Glucose [Mass/Vol] 139 mg/dL High 74-106 [facility] Comment on above: Result Comment: Fast ing Glucose result greater than or equal to 126 mg/dLsuggests DIABETES MELLITUS per A.D.A. criteria. Performed By: #### L 500.4050, L501.9520, L100.0100 ####[facility] [address] [place], [address] Potassium [Moles/Vol] 3.5 mmol/L Normal 3.5-5.1 [facility] Comment on above: Performed By: #### L 500.4050, L501.9520, L100.0100 ####[facility] [address] [place], [address] Sodium [Moles/Vol] 136 mmol/L Normal 136-145 [facility] Comment on above: Performed By: #### L 500.4050, L501.9520, L100.0100 ####[facility] [address] [place], [address] T PROT 5.9 g/dL Low 6.4-8.2 [facility] Comment on above: Performed By: #### L 500.4050, L501.9520, L100.0100 ####[facility] [address] [place], [address] Urea nitrogen [Mass/Vol] 18 mg/dL Normal 7-18 [facility] Comment on above: Performed By: #### L 500.4050, L501.9520, L100.0100 ####[facility] [address] [place], [address] Internal Medicine Office Vis iton 11-07-2023 Internal Medicine Office Visit Normal [facility] Thyroid Stim Hormone (TSH)on 11-07-2023 TSH 4.16 uIU/mL High 0.358-3.74 [facility] Comment on above: Performed By: #### L 500.4050, L501.9520, L100.0100 ####[facility] [address] [place], [address] HH, Hemoglobin AND Hematocri ton 10-31-2023 Hematocrit (Bld) [Volume fraction] 34.8 % Low 37-47 [facility] Comment on above: Performed By: #### L 100.0600 ####[facility] [address] [place], [address] Hemoglobin (Bld) [Mass/Vol] 11.2 g/dL Low 12.0-15.0 [facility] Comment on above: Performed By: #### L 100.0600 ####[facility] [address] [place], [address] BRCon 10-16-2023 RC Normal Neg [facility] Comment on above: Result Comment: [id number] OP RC TRANSFUSED 10/17/23 [id number] OP RC TRANSFUSED 10/17/23 1055 Performed By: #### B VIRI BTS ####[facility] [address] [place], [address] Type AND Screenon 10-16-2023 ABO and Rh group Nom (Bld) Blood group O Rh(D) positive Normal [facility] Comment on above: Order Comment: N06/2 04/2023NYA Performed By: #### B VIRI BTS ####[facility] [address] [place], [address] CBC,PLATELETSon 09-18-2023 Hematocrit (Bld) [Volume fraction] 24.6 % Low 34.9-44.3 [facility] Comment on above: Performed By: #### N ONGNGURDEEP #### [facility] (DEFAULT) [address] [address] Hemoglobin (Bld) [Mass/Vol] 7.9 g/dL Low 11.4-15.2 [facility] Comment on above: Performed By: #### N ONGNFCECY #### [facility] (DEFAULT) [address] [address] MCV (RBC) [Entitic vol] 94.3 fL Normal 79.6-97.7 O [facility] Comment on above: Performed By: #### N ONGNFNA #### [facility] (DEFAULT) [address] [address] Mean Cell Hgb 30.3 pg Normal 25.9-33.9 [facility] Comment on above: Performed By: #### N ONGNFNA #### [facility] (DEFAULT) [address] [address] Mean Cell Hgb Conc 32.1 g/dL Normal 31.4-35.9 [facility] Comment on above: Performed By: #### N ONGNFNA #### [facility] (DEFAULT) [address] [address] Platelet mean volume (Bld) [Entitic vol] 11.0 fL Normal 8.5-12.2 [facility] Comment on above: Result Comment: This is an appended report. These results have been appended to a previously preliminary verified report. Performed By: #### N ONGNFNA #### [facility] (DEFAULT) [address] [address] Platelets (Bld) [#/Vol] 90 10*3/uL Low 150-393 O [facility] Comment on above: Result Comment: This is an appended report. These results have been appended to a previously preliminary verified report. Performed By: #### N ONGNFNA #### [facility] (DEFAULT) [address] [address] RBC (Bld) [#/Vol] 2.61 10*6/uL Low 3.91-5.04 [facility] Comment on above: Performed By: #### N ONGNFNA #### [facility] (DEFAULT) [address] [address] RBC Distribution 17.0 % High 10.8-14.9 [facility] Comment on above: Performed By: #### N ONGNFNA #### [facility] (DEFAULT) [address] [address] WBC (Bld) [#/Vol] 7.05 10*3/uL Normal 3.99-11.19 [facility] Comment on above: Performed By: #### N ONGNFNA #### [facility] (DEFAULT) [address] [place] [address] Erythrocyte distribution width (RBC) [Ratio] 17.0 % High 10.8 - 14.9 % [facility] Hematocrit (Bld) [Volume fraction] 24.6 % Low 34.9 - 44.3 % [facility] Hemoglobin (Bld) [Mass/Vol] 7.9 g/dL Low 11.4 - 15.2 g/dL [facility] Interpretation and review of laboratory results Abnormal [facility] MCH (RBC) [Entitic mass] 30.3 pg 25.9 - 33.9 pg [facility] MCHC (RBC) [Mass/Vol] 32.1 g/dL 31.4 - 35.9 g/dL [facility] MCV (RBC) [Entitic vol] 94.3 fL 79.6 - 97.7 fL [facility] Platelet mean volume (Bld) [Entitic vol] 11.0 fL 8.5 - 12.2 fL [facility] Platelets (Bld) [#/Vol] 90 10*3/uL Low 150 - 393 K/uL [facility] RBC (Bld) [#/Vol] 2.61 10*6/uL Low [facility] WBC (Bld) [#/Vol] 7.05 10*3/uL 3.99 - 11. 19 K/uL [facility] CHEM 7 (LYTES,BUN,CREA,GLUC) on 09-18-2023 Anion gap [Moles/Vol] 10 mmol/L Normal 7-17 [facility] Comment on above: Performed By: #### N ONGNFNA #### [facility] (DEFAULT) [address] [place] [address] Chloride [Moles/Vol] 101 mmol/L Normal 98-108 [facility] Comment on above: Performed By: #### N ONGNFNA #### [facility] (DEFAULT) [address] [place] [address] CO2 [Moles/Vol] 30 mmol/L Normal 21-31 [facility] Comment on above: Performed By: #### N ONGNFNA #### [facility] (DEFAULT) [address] [place] [address] Creatinine [Mass/Vol] 2.39 mg/dL High 0.50-1.20 [facility] Comment on above: Performed By: #### N ONGNFNA #### [facility] (DEFAULT) [address] [place] [address] GFR/1.73 sq M.predicted among non-blacks MDRD (S/P/Bld) [Vol rate/Area] 20 mL/min/{1.73_m2} Low >=60 [facility] Comment on above: Result Comment: Repo rted eGFR is based on the CKD-EPI 2020 equation using creatinine, age, and sex. Performed By: #### N ONGNFNA #### [facility] (DEFAULT) [address] [place] [address] Glucose [Mass/Vol] 83 mg/dL Normal 70-99 [facility] Comment on above: Performed By: #### N ONGNFNA #### [facility] (DEFAULT) [address] [place] [address] Osmolality [Osmolality] 291 mosm/kg Normal 278-305 [facility] Comment on above: Performed By: #### N ONGNFNA #### [facility] (DEFAULT) [address] [place] [address] Potassium [Moles/Vol] 4.4 mmol/L Normal 3.5-5.0 [facility] Comment on above: Performed By: #### N ONGNFNA #### [facility] (DEFAULT) [address] [place] [address] Sodium [Moles/Vol] 137 mmol/L Normal 135-145 [facility] Comment on above: Performed By: #### N ONGNFNA #### [facility] (DEFAULT) [address] [address] Urea nitrogen [Mass/Vol] 24 mg/dL Normal 7-25 [facility] Comment on above: Performed By: #### N ONGNFNA #### [facility] (DEFAULT) [address] [place] [address] Urea nitrogen/Creatinine [Mass ratio] 10 mg/mg Normal [facility] Comment on above: Performed By: #### N ONGNFNA #### [facility] (DEFAULT) [address] [place] [address] Anion gap [Moles/Vol] 10 mmol/L 7 - 17 mmol/L [facility] Chloride [Moles/Vol] 101 mmol/L 98 - 10 8 mmol/L [facility] CO2 [Moles/Vol] 30 mmol/L 21 - 31 mmol/L [facility] Creatinine [Mass/Vol] 2.39 mg/dL High 0.50 - 1.20 mg/dL [facility] eGFR, CKD-EPI, Female 20 Low - PINF [facility] Glucose [Mass/Vol] 83 mg/dL 70 - 99 mg/dL [facility] Interpretation and review of laboratory results Abnormal [facility] Osmolality Calc [Osmolality] 291 [facility] Potassium [Moles/Vol] 4.4 mmol/L 3.5 - 5.0 mmol/L [facility] Sodium [Moles/Vol] 137 mmol/L 135 - 145 mmol/L [facility] Urea nitrogen [Mass/Vol] 24 mg/dL 7 - 25 mg/dL [facility] Urea nitrogen/Creatinine [Mass ratio] 10 mg/mg [facility] CYTOLOGY, NON-ENDOSCOPY TECHNICAN - FNA ONLY Ordered By: Chalino Mayo on 09-18-2023 CYTOLOGIC DIAGNOSIS x5dtjEFvMQIrzRSmBJLnD7xr blIbNPOalFTcM0UpyaysGCsi LC2lOP6xcWpuqOCcfZXlWXAo HfBlr4npk205jANiw3xdJDKI xyxuyXf6w8osIBRKeR3dl3n2 cJ83CPDjgT6riKZpUEosnzXe YVkzcePbepTgLub7ALF4dYhd IwlaqNK3vATlqFN2JKekx8Es yIsroXahLiC6Qui3LORfM8xy vGA1vCPloIvhyNHzRN1jb0rr lUK0tcHnIIY6iLumwSS8zSga cyliv5vapZF1bOJ1BRrsxVB9 NBdeHbJaT1wkZGQxiM9kI32m F6fbUMKijYeePDyySDOcvBU6 ZIE1EPXcb0crPMChsNFjkEZj NmEjOTchObw1s7atOPMuaB01 hXTfyxY6vEsnDNvukIR8DU86 GSgwo3VjJZYhpPpxVPCzuF9p YzIzXGxldmVsbmZjbjIzXGxl hbCljvZsCXklfhQrj8CfdbYp oQL9MBtnhkDpiHT5qQnwSLFl K5C4U860WJbckmMjhjNfQtVl fne3JEHqwZylsDvvmZlsxfAs FBsqseWszoVsYtStsCT3CPbm DhLrKsKqjJT7KCuhVqXygGO1 LItevWZebJM4CKrheUC0TOc1 KJl1MPlcYLrwEfe7dUhnxIX9 HCgenU7rNLFiB17cNtX0v1ec nWJ4tMZ0LAxsvHY8EXhpSxCe R3iaZZZlfI7eQ76sV2csBPUy nLjkDRylVXUkmYF3JAB9TUUl d6evGPQlyZIllCKwHfSjNNxx Yfq4k2cvRXXtxR71tOAkefS1 iHaeZZ95APudm3UsUIWdpWbz HJGzvR2dNrLiXTpwieYigdYl bjIzXGxldmVsamMwXGxldmVs g3IxlgUjmEL2HKhhutMbjMU2 qOnvQTXaQ2R2W886TNovegBo zoHfDzOikzg9RROsrQzwrZfw dGxldmVsXGxldmVsbmZjMjNc aWU0MKbeGdYnHbSpuJK0ITdv JfCcdKZ9HFqskZUpqAO0STfr rQR5YXj4BYw1BSkgXIlaHhy7 rDjqiDQ0SIorvP9wEOQiO42t XuC0l5yzsLL8sJG4KVbarQD2 RNbtAkSsY1teVDGjwI9bX74x J5uiCCHszAhiGInnDTMweTI1 NJQ7ZCIfs5cmOUQveGNxqLCj JrIrPFdvLtp5w1quIWUodN62 jKSojxB7pWjvJK06JTrei2Ge KOKlsDmjAWZubG2xZiVbUWuv dmVsbmZjbjIzXGxldmVsamMw NUchkpSiz1TroaRdeUC0PGco caJcqGP8uKqaRIJkQ9T8H901 KFqeodSlitKjGcCukqe4IKSb fXtcbGlzdGxldmVsXGxldmVs xyLpHjPspBO0OOjqKbZqSqQc rIO6BIjlIsXbqNX7ZDbkmFJx gNO9ZSaemHG3JQp0URa9QGic KWlpScb9yKuxgCE7YOguuZ8x VABfE67tSnR0gBdeqChrnJsn oMU9lAX4QTT8WhP1YCknaFxz dHRlbXBsYXRlaWQtMXtcbGlz sQ1tyYZoJ21keYoqeWp6RvDb ZHtcbGlzdGxldmVsXGxldmVs msXpEaNycWA2BZvtIoTaCiXk yWG5IKkpHdQpwSE9XMjteIEz fJO4AOjlcPZ5XNp0TGo7DIvv SVwnGnu0dOtosZP0OFijaF8i DDGhD48nZwAldCnpRfQ8g9mm zDS1tUA9YZibtIO2KLfaBdSr T4lxZHBzdD0iL04rZ3cqLOSj jVcdNErwOPZdyOG8QZU6IHVc r5mqBSMozMBanKOtYoJyMXqj Ubu9f3buQIQawW07aDJqooC1 kDcrEI66NAdzk2SvBPDliRbe CVRzoO5rGpQtWOdutpStslHa bjIzXGxldmVsamMwXGxldmVs k5RqfjTzkCB0AFgrekVmkRC3 vTceDDEeT2P8G484HZlouoHm adIwVsVogph1NOAsbRcptXrr dGxldmVsXGxldmVsbmZjMjNc eRS8JWklNjKvTyKcxND6DJft UxFyyZF2GCdppNLbsHO4CJel gUY4WAg8ZKb5FIqlKEypZwl4 kAvvnIS2QTafoH2rFDJtD25t SlJ2w8omlOC4wAM6WDkfsUG3 GOypQvKcB9puJOPqhZ6pG34t U3utBCEsjBokMMcsJHMulTC5 LTB5BZCat2kjJCXliJGhvFOt AkQtIFdwEei7h2lrGYBqrE34 yCHvthL5oPfhYT25TFjpj8Kb AEMvdTnuPDVsqB6lIxRcTFfh dmVsbmZjbjIzXGxldmVsamMw VMoudlOkr0PfboOouUK3HNoz dcBhhTI4kUxoLIUhH8K9L108 VRlbdvThggBqNtRwklc8ROLb fXtcbGlzdGxldmVsXGxldmVs cfKyEjPrjRY4XTybAiWaKpCn cSU8TUquXkPjaXT1GXrkvDWz zWT1FLurqKH0VJl9ONy1PVxg KOpqMxs7pHminKP2DWmutO2l TNLqU96tQuC6l5jezIY9xYJ9 ITgfpKK2TZnhTyElC7wzPGEx qR3hU69zS1jxZVBmzWebJHlq LEQauVV4TGQ4XHMlf0rsMQVj xFUzvOZoDbIwFTxgKrt2v0qk QYCysC84fJCphoX5hKnuUT27 WEunr2IaZETcpJvbHADkfP0e YzIzXGxldmVsbmZjbjIzXGxl orJmqmAoUAsriwUzi8AsnhKp sWB1BTpanpDksOS5hWduZFEj D8C7Z825JJvdedXbdrYjGyQe qqk2BSCvxH77z1lpDVccf0Lg raQapvvtXOQwCvczt9xoPRax s4XbjjHclucvTRdqgSU2zAOv EPCmQYukNZDtIWeln8OcdqFl gmqfRFIiuF50MRwzphZ1j5wg KTlzh0RpvbTnjhvpCVysjXL4 zJY5XES9EkN2HIdbmSyksY97 KAXkwWNiC680taLkSIdvRp91 XHBhcGVydzEyMjQwXHBhcGVy tAW3DJJwJI4jelotDOcoRCmv BTLpynV4ZGAllFKuO7QvBYNh KS2odrqrIGW9SLweSOUnMEZ3 HcJgOOWom0Empol0EoAckIu5 q8chVRTqUXMahKmfq1bvFRU5 ZYCmjBNhW6hzyQ7aBPMxAG5i xoxar6hnBVjiOCnyXKNbwOV0 ywR2CVOajBZpL0SagX3gUSCv MNSjnhNaxBoooZ5oRnulmzBl NALnUDAYYoBCBE1WRH4ARVDO CLQLSSHAQ7FIVTyCJ3rEPfvf Ju2NZXaiYvTvJKXCIQ5FD7vV PWBKURBUTJwEZPOTJ5YMCKsb J3OxWKSgqXMhRZCgXMAlPVrv YXJcYlxjZjEgRklOQUwgRElB E43ZX4rQIjapCRFybMttJqMs bHMxXGlsdmwwXHBsYWluXGJc SiHsFuawMxEaWSKer907p68i WASlfotpfZ2xIhKdeYFzFKRj phukLJ5rmVA7PIgpOZyhRHRF aYOddP67wa8atTP5m1XdXP0d d1ZncHkexXwlBSB4wQ2eYDCc nLdkPDWjEUNhq9QbdUm2HLLp b0TeK93PQFZeHZHDXFXdoHIo x21rfqGyxpAzRVDtGJ7mA7Y6 uGLoSHZiokNPH8ltQJqoG4Ry CZiiBCPaGJCITMTwNH3bWMuf YXJccGFyZFxjZjBccGFyIElt cWGzqSV4MVZNtEVoqXgmJHGg xTUoP7ejZQExeNuweM8cmtmx DBtoJ41dl0nrErrdXVCtlPrm NjBcbHMyXGlsdmwwXHBsYWlu ZZNqCyGbRLPzwP1xNFqsCQmk c8AjZMFbHTYbomZurJGhEXWs PtFSEjJWsWDzCR2wlKtmcCGg BVXrrorcvQ7rUdSkiSFuVKKa PPDeFZQqOJRbNRYPLW09YELM a9ngyvMsCSBPTAglFWE3KGDj ELUdDIL6BDBprazsVTFyoMLn LJnnOQvybJ9tNQJSGGBAOHZk t5QaVRMsSfa0NBKHlCqeoTPu XT6qDFCyowocCLNvzFiqCmFm ORftIGZadyKay7uyAYIio2bf ZDAjew9wydtfaGUdvfQgU8Dz udb0pS5tPGLlixNeLBLkfuNU fJgjjR8kwY9xvMpyxT7stOCo oWT3cvktAAvhZBQguOEwlJxz ckbzfHxibNxggouzSN4uTVjn z7DxU1xkkPmaLZoqcXAgoBTp o2GjBODhSXYktT8xDTQmHlew MT1yVMNnXIJaHHWqe3HdBMQt XIXelCitSA0IMTWNRFyqQZEn OVVunUOfmABGKI81GFVgG0qs ybaiHBnbOQTzs9NbkW7dmFxv LtuxXSLbz6BalSTsEDEyPTTc BOINsSYFJWblLULXe9w1xMD4 kwcrO2pmNAHlJFTeGXmyXZsr yCHva4UaeG1gMKIvCK45UXkC AorrRMNsx1XuKUukdnExGEX2 IRxdfHGtIDK0HIAjHUWebkOo mSLhMc6jzFIqMZH5EAOhJWYL D9CjD5R3dxTtOR5uLKurOJil K6AjuPKoEKHfkG1rL5KgYVzg Cz5cJGUmpivcOHOkXDLDYdAm KGKxQRV5WM28ZMfyF76joR0i xRTgBT2NFCK5NbYzLJ5dNUqw ZLRvv9GsJMEprT5qzJImJJbq fhTnDKH8V7ErnKB1yG7eAKAx ZZYdMSXdvS1xVMxEReIvx6Fj urA9fIWyw2Aov88cJFAtWPRl ayFwsLY8zHEaZG4hdnjlhlxj zAX3DYWko3TxHiNbuiLzkWNu kbQdZYK5CL3sULYkrVOfndKz NYC4TTTfFNWTKvFWw62hEBJd HSDOznCgDFYsuOhhmOA5xgD7 uI2vRRbGXXJrGqSCmBIpwINf e7OlhY5fqEZdzpUkIVf9mLJ4 NBYllJ7iVTJiU7lWLRMowjUe rUSrdJZuSHTmkH4uaZMqSy1i bSBoaWdoLWNvbXBsZXhpdHkg qCZidDhjTv1jQAfxTNBcc5Wz PNLfFBH6e8GbKEVjuyQivJtx dLVdwNKpbRRmq8Qqsc8nAZUa ATfst1wwlWwlPP7xjUIdPIYs NHelixYhPFDytmIgjwZsr7Wo H4G4bH4zABzan1XyCt9jMXJr e2XjygVzZtqhLSLfpTWfmV== U [facility] Work Phone: Case Report [facility] Work Phone: For Immediate Release to Patient's MyChart? Yes Yes [facility] Work Phone: Gross Description i3ckeJYaWJSgaKReLATv M1xh ypAyJBLikQTnA6NaxdxqJNuv IM4yHE2yuHljoUHtvYFrIFFm AeHwd4iza986eRXfw4pxTWFP kmupfIe2uQqpC98pk2R0Igie O95wcVQzRZW3HQCbCZEwrXQj CWLiITB8FFFowXQnU8yyLJGd OC2nghflUWrqYIztOJQwtDD7 ZIDojWTfP6ErNAIhNRuoLZBe isj7PsBiWr0zlZVbaNepSHjz YXJkXHBsYWluXGZzMjAgRHVv ETPbYGouP2PnsUOop7WeoPQT n0J0VJEug7R7GR1CVlJbfWsm JOP2PcSsnIOixFN5sTFszR5k IGZsdWlkIGluIFJQTUlccGFy JAKnT4enMOLmRGIVQFD9CBcs XHBhciAyIFNsaWRlcyBQYXAg K5JujJ7vxJDhWVYmU6DmyUTp MDPekrYTmO9gLCNwDLHfjTNw XLMuCOCtNCEmtaCcp7UqJJkr bjogICAgICAgIDUvMjAvMjQg TQVwCPO8WyJeyINtHQGbQvo4 YWIgIFxwYXJccGFyIFRpbWUg z7YoW5frEC1fjuHhl3KxBQHt lb6hBKIsch5sjAlfUkZhGJTl CyZwYrDjSFWhOkF8BEMulEPv BAQcBnk5PVZmRL89RLseGxn5 SDJhe16tDAohUHvnYPM7CNen gRCsRYLpGD6fgaG0YTSeBScq YXJccGFyfQ== [facility] Work Phone: Microscopic Description s0vnwTXlUMMpi9os ZGVmbGFu ZzEwMzNcZnRuYmpcdWMxIHtc kcXoZVugv3EgG6EyCvQvFIhv bnNpXGRlZmxhbmcxMDMzXGZ0 xlLeFAPaUPzsUCGsVSrgMn5f xYRakZvyVpWwJGUeo2tbutNE zpdacQl0c2imGSIyFhC0tQUi UKvcP5zerjToyPEgAYAxUWx2 jT03SMIrmP4ahHLxNQnohwJm LnX2OXoeELEeKmL5UTZgsZIp APDoN7xmVHTtVAroNZSmWSua uNYoNGG9hXcxe3W0hVTohLTs kAdnYtGoBjXdFgAMr5YwOTb7 gRqjP7PcCCMjZuA9xRSiFFFi QBbuITAjMURwuoV2rF55UBnp keP5vKAvb6Kzu57vf933wB8k lRJxFWJ4TQSnPBBltJMvPEIq MMA5PPLmlQNwN9urLKXiHM1f xrtnFVuzQJqgMKJlxFR7XVBb xEIvD1AyLCCeSPopIRQnjoe1 PaWeCz6wqHUkaJppDZnzh1rr b1suxCLxFli5PSUhQiVdTadt ESggx5Fgl9qqCMAkbs4oEVA4 jCLzbZtja1O0vCByIROohSQk ipInIYUbHfD5QIhhBB5izo61 IPEgELY2ti4mpAQktCntjoNu dQOlOBqiX5YmNHNko931MAPh F3PfASOhf2Y9jmEcKjQjTJQm gZX4bfY8HLOaPCf5tQWgrqM2 xyZpcBWjX7gptX8aFCHaPO8z awgfl4adPKtiOYbwEWUlfYH1 xaD6JWHgxLDsY0ZtaG7cZGJy LKgjKVSghil5YxWkAb8zlSAr eTcyMFxzYmtwYWdlXHBnbmNv bnRccGduZGVjXHBsYWluXHBs YWluXGYwXGZzMjRccWxccGxh iR6cZdXjAlExNXnjBR2jFIRv K7ztrEJhEEOrKPBtD3fmHeSu bW6rkAfmHEhmRwIuWqQvAXtm BOWxUObpFOXjkcFzu5ayFDYa f8sfXBZtkd4qtzamjASdylIw L3Vvgti9mF9dHVrcCHijnZXo q0rqe1VbA6hlnOqujCT8CACr irYnbSS3EDv6FxZeSPu2QQVg h18jFW1yYJpxh0AsC3tqiNcn FMpukTLfpVCko3UqAPOjIYJx yP3dOASzOsezNR8tVADoMVCe THUzq5WsISOkOXIglDxsPQ4B VSBXZXhuZXIgTWVkaWNhbCBD EN45HLLpG0vftdeoQFfuNDYq p3JcpZ4mrLxvL72jtM5jdMWa K9ktUVCvjTG7QMO9hwToLLBq cnRlZCBoZXJlLCBleGNlcHQg hOztx7DoHSLdozExw3dqEyPS OQOzAYEQTPkfGN8wFWTAKZhe LJI2fSUdt6Foo97eAAHlPHHy uuPpgQF6xGGjFU3zdmkoului mQO4WQGcn9JyYgWkyxExqIMc unGqVZF0VC3wEFVsnYXwcrPq VVJ3DKCrJCZKELXoPOFlAMZr TWFyauB6v9H2UXcfPSEzL0Vz NEXmBTH0qdYyoxXSCFfNAMUu FPA5NEheEitqQOR5gzJuPHUe r4KfMKooQ8qrZ31lmAaeyXi6 eWN3FPS9iA3pXnDIpRZyxZFp lDDiTVXxJHHdOOBtLd3bTZBy pL4yK1MwUSK0klRet0CbDkPB bXY4EAIvi5XjPGImt0JcVlSd pxYbSVKzCERdFINbxM82TWD5 wHptwIdklbOdQS1wFJYbpxHx FIPxQXIwfL9dYAMtvh93 [facility] Work Phone: Professional Interpretation Performed at: [facility] Work Phone: Comment on above: w7wqlQQrKGNuf1uqDANq vBLrArVfLlTxXaHcVuvayWOfRRpjoyWjSNfqr1ZyQ0 JkJoTmCKpetcSsVZRqGffjsnpgDFZpQXD1wqCqVBVbVDjpLUUsVCrkHs3fyWWl lKcjLuOtCICnb2iftnFXbrgtnOo1z6faVLDsTzG7wGZnYQxlY0xuxlBxhSOjVS UfYFx3jC56ATYjzS0feUVeIBkjelDfVzF3YBqkZMJqYsO4FGLpsBJmATPdY4ad QWPeCBthZNBdBFyutSDyNLY7cLkax9M9cLGadQTvyXgbDrKvJbZyZrZAo7VmOV o0pDvzZ6TmYNXjInS5sMDbJBCeDThvUMBbGXOfvgV8qH15YLazxzS4uIAyq3Yu x21yq181pC5xkWVjVWA0VCQkPKYhzOTfNSGnULZ7PSByfQPlA4jpAGTqFO1cpu qtNRmoRGcoZNKpyJX6PDMxhJSzL3KqRXKgYYwiWXSargq3GuKrKn9kxOBomSdg QOjfv6ehj1bzkZTkBqw3CYWkHrFqWsgjBQixe9Whv4tyHUSgdo1nXMH3hUYutP wxm1E9dJJhWKKxwVSieqWoFPIeXnU8GBmvTH9pel16LOWeHXO0tl4tzOZauShn xiWwhLUmBGojB5QlTXFmo569ASJwP2LgYCPdu2S1vuOeEtAkDJDxlLQ6mwV0RV TuCNv3lPRsdoY2jqEgoLQxJ3qctC5bKXKiYW9dxlulv8riPGxsHSvlYCKlwOQ4 naZ2PQVrmIUzK2LukE0yXYKeQElwQRMlamp3MyXzFp0ewPSapFtjVIdiKlypWL dlXHBnbmNvbnRccGduZGVjXHBsYWluXHBsYWluXGYwXGZzMjRccGFyZFxwbGFp afgeIRaemrHcCZjzpylyJTLfJAhgV5vgKeElNITkiKegGUres0QeOXQdTQFdUx KlG5DJUFnTSD2CTjDBJETVF3IQRMTCTtXIEnMAKQcPGDGLJUMRZQLBTqGOU7ZB XBTzceS0VKYoS5EfqTKeFMGbUXQ6LPflPAMmK41ktI0zzLDyXO8woI1nTLKgHU TavGWmdWvdmuAgFVbbnsJfYAVkPbvmqhhpEQMmSDN0ziOir1mdg291yVYkr1yx NZFnFa8gQYGdfeYgYfStLBSwVPBdRWCpaKKcJ993ADLuUMboOUKfBZHrKyGomJ 0= [facility] Work Phone: ENCEPHALOPATHY, AUTOIMMUNE E VALUATION, CSFon 09-18-2023 AMPAR2 IgG Cell binding assay immunofluorescent assay Ql (CSF) Negative Negative [facility] Amphiphysin Ab IF Ql (CSF) Negative Negative [facility] Annotation comment [Interpretation] Narrative None. [facility] Contactin-associated protein 2 IgG Cell binding assay immunofluorescent assay Ql (CSF) Negative Negative [facility] CV2 Ab IF Ql (CSF) Negative Negative [facility] Dipeptidyl aminopeptidase-like protein 6 IgG IF Ql (CSF) Negative Negative [facility] GABABR IgG Cell binding assay immunofluorescent assay Ql (CSF) Negative Negative [facility] Glial fibrillary acidic protein alpha subunit IgG IF Ql (CSF) Negative Negative [facility] Glial nuclear type 1 Ab IF Ql (CSF) Negative Negative [facility] Glutamate decarboxylase 65 IgG+IgM IA (CSF) [Moles/Vol] 0.00 nmol/L NINF - 0.02 nmol/L [facility] IgLON5 IFA, CSF Negative Negative [facility] Director review [place] (Unsp spec) [Interp] [facility] Leucine-rich glioma-inactivated protein 1 IgG Cell binding assay immunofluorescent assay Ql (CSF) Negative Negative [facility] Metabotropic glutamate receptor 1 IgG IF Ql (CSF) Negative Negative [facility] Neurochondrin IFA, CSF Negative Negative [facility] Neuronal nuclear type 1 Ab IF Ql (CSF) Negative Negative [facility] Neuronal nuclear type 2 Ab IF Ql (CSF) Negative Negative [facility] Neuronal nuclear type 3 Ab IF Ql (CSF) Negative Negative [facility] NIF IFA, CSF Negative Negative [facility] NMDAR subunit 1 IgG Cell binding assay immunofluorescent assay Ql (CSF) Negative [facility] SEO SPECIALIST-1 Ab IF Ql (CSF) Negative [facility] SEO SPECIALIST-2 Ab IF Ql (CSF) Negative [facility] SEO SPECIALIST-Tr Ab IF Ql (CSF) Negative Negative [facility] Septin-7 IFA, CSF Negative [facility] ENCEPHALOPATHY, AUTOIMMUNE E VALUATION, SERUMon 09-18-2023 AMPAR2 IgG Cell binding assay immunofluorescent assay Ql Negative Negative [facility] Amphiphysin IgG IA Ql (S) Negative Negative [facility] Annotation comment [Interpretation] Narrative None. [facility] Contactin-associated protein 2 IgG Cell binding assay immunofluorescent assay Ql (S) Negative Negative [facility] CV2 Ab IF Ql Negative Negative [facility] Dipeptidyl aminopeptidase-like protein 6 IgG IF Ql Negative Negative [facility] GABABR IgG Cell binding assay immunofluorescent assay Ql Negative Negative [facility] Glial fibrillary acidic protein alpha subunit IgG IF Ql (S) Negative Negative [facility] Glial nuclear type 1 Ab IF Ql (S) Negative Negative [facility] Glutamate decarboxylase 65 Ab (S) [Moles/Vol] 0.06 nmol/L High NINF - 0.02 nmol/L [facility] IGLON5 IFA, S Negative Negative [facility] Director review [place] (Unsp spec) [Interp] SEE COMMENTS [facility] Interpretation and review of laboratory results Abnormal [facility] Leucine-rich glioma-inactivated protein 1 IgG Cell binding assay immunofluorescent assay Ql (S) Negative Negative [facility] Metabotropic glutamate receptor 1 IgG IF Ql (S) Negative Negative [facility] Neurochondrin IFA, S Negative Negative [facility] Neuronal nuclear type 1 Ab Ql (S) Negative Negative [facility] Neuronal nuclear type 2 Ab IF Ql (S) Negative Negative [facility] Neuronal nuclear type 3 Ab Ql (S) Negative Negative [facility] NIF IFA, S Negative Negative [facility] NMDAR subunit 1 IgG Cell binding assay immunofluorescent assay Ql (S) Negative Negative [facility] SEO SPECIALIST-1 Ab IF Ql (S) Negative Negative [facility] SEO SPECIALIST-2 Ab IF Ql (S) Negative Negative [facility] SEO SPECIALIST-Tr Ab IF Ql (S) Negative Negative [facility] Septin-7 IFA, S Negative Negative [facility] GLUCOSE POCon 09-18-2023 Glucose [Mass/Vol] 135 mg/dL High 70 - 99 mg/dL [facility] Interpretation and review of laboratory results Abnormal [facility] POC Sample Type CAPBL [facility] Glucose [Mass/Vol] 125 mg/dL High 70 - 99 mg/dL [facility] Interpretation and review of laboratory results Abnormal [facility] POC Sample Type [facility] Glucose [Mass/Vol] 142 mg/dL High 70 - 99 mg/dL [facility] Interpretation and review of laboratory results Abnormal [facility] POC Sample Type CAPBL [facility] Glucose [Mass/Vol] 334 mg/dL High 70 - 99 mg/dL [facility] Glucose [Mass/Vol] 165 mg/dL High 70 - 99 mg/dL [facility] MAGNESIUMon 09-18-2023 Magnesium [Mass/Vol] 1.6 mg/dL Normal 1.6-2.6 [facility] Comment on above: Performed By: #### N ONGNFNA #### [facility] (DEFAULT) [address] [place] [phone] Interpretation and review of laboratory results Normal [facility] Magnesium [Mass/Vol] 1.6 mg/dL 1.6 - 2 .6 mg/dL [facility] No Panel Informationon 09-17 [facility] Interpretation and review of laboratory results Abnormal [facility] POC Sample Type CAPBL [facility] CALCIUMon 09-17-2023 Calcium [Mass/Vol] 8.4 mg/dL Low 8.6-10.5 [facility] Comment on above: Performed By: #### B FLD #### [facility] (DEFAULT) [address] [place] [address] Calcium [Mass/Vol] 8.4 mg/dL Low 8.6 - 10. 5 mg/dL [facility] CBC,PLATELETSon 09-17-2023 Hematocrit (Bld) [Volume fraction] 25.2 % Low 34.9-44.3 [facility] Comment on above: Performed By: #### N ONGNFNA #### [facility] (DEFAULT) [address] [place] [address] Hemoglobin (Bld) [Mass/Vol] 8.1 g/dL Low 11.4-15.2 [facility] Comment on above: Performed By: #### N ONGNFNA #### [facility] (DEFAULT) [address] [place] [address]1524 MCV (RBC) [Entitic vol] 94.0 fL Normal 79.6-97.7 [facility] Comment on above: Performed By: #### N ONGNFNA #### [facility] (DEFAULT) [address] [place] [address] 60[address] Mean Cell Hgb 30.2 pg Normal 25.9-33.9 [facility] Comment on above: Performed By: #### N ONGNFNA #### [facility] (DEFAULT) [address] [place] [address] 85815 Mean Cell Hgb Conc 32.1 g/dL Normal 31.4-35.9 [facility] Comment on above: Performed By: #### N ONGNFNA #### [facility] (DEFAULT) [address] [place] [address]382 Platelet mean volume (Bld) [Entitic vol] 11.0 fL Normal 8.5-12.2 [facility] Comment on above: Performed By: #### N ONGNFNA #### [facility] (DEFAULT) [address] [place] [address]94 Platelets (Bld) [#/Vol] 108 10*3/uL Low 150-393 [facility] Comment on above: Performed By: #### N ONGNFNA #### [facility] (DEFAULT) [address] [place] [address] 36509 RBC (Bld) [#/Vol] 2.68 10*6/uL Low 3.91-5.04 [facility] Comment on above: Performed By: #### N ONGNFNA #### [facility] (DEFAULT) [address] [place] [address] 746[address] RBC Distribution 16.7 % High 10.8-14.9 [facility] Comment on above: Performed By: #### N ONGNFNA #### [facility] (DEFAULT) [address] [place] [address] 91514 WBC (Bld) [#/Vol] 8.48 10*3/uL Normal 3.99-11.19 [facility] Comment on above: Performed By: #### N ONGNFNA #### [facility] (DEFAULT) [address] [place] [address]11[address] Erythrocyte distribution width (RBC) [Ratio] 16.7 % High 10.8 - 14.9 % [facility] Hematocrit (Bld) [Volume fraction] 25.2 % Low 34.9 - 44.3 % [facility] Hemoglobin (Bld) [Mass/Vol] 8.1 g/dL Low 11.4 - 15.2 g/dL [facility] Interpretation and review of laboratory results Abnormal [facility] MCH (RBC) [Entitic mass] 30.2 pg 25.9 - 33.9 pg [facility] MCHC (RBC) [Mass/Vol] 32.1 g/dL 31.4 - 35.9 g/dL [facility] MCV (RBC) [Entitic vol] 94.0 fL 79.6 - 97.7 fL [facility] Platelet mean volume (Bld) [Entitic vol] 11.0 fL 8.5 - 12.2 fL [facility] Platelets (Bld) [#/Vol] 108 10*3/uL Low 150 - 393 K/uL [facility] RBC (Bld) [#/Vol] 2.68 10*6/uL Low [facility] WBC (Bld) [#/Vol] 8.48 10*3/uL 3.99 - 11. 19 K/uL [facility] CHEM 7 (LYTES,BUN,CREA,GLUC) on 09-17-2023 Anion gap [Moles/Vol] 14 mmol/L Normal 7-17 [facility] Comment on above: Performed By: #### B FLD #### [facility] (DEFAULT) [address] [place] [address] Chloride [Moles/Vol] 99 mmol/L Normal 98-108 [facility] Comment on above: Performed By: #### B FLD #### [facility] (DEFAULT) [address] [place] [address] CO2 [Moles/Vol] 25 mmol/L Normal 21-31 [facility] Comment on above: Performed By: #### B FLD #### [facility] (DEFAULT) [address] [place] [address]1568 Creatinine [Mass/Vol] 4.14 mg/dL High 0.50-1.20 [facility] Comment on above: Performed By: #### B FLD #### [facility] (DEFAULT) [address] [place] [address] 46992 GFR/1.73 sq M.predicted among non-blacks MDRD (S/P/Bld) [Vol rate/Area] 10 mL/min/{1.73_m2} Low >=60 [facility] Comment on above: Result Comment: Repo rted eGFR is based on the CKD-EPI 2020 equation using creatinine, age, and sex. Performed By: #### B FLD #### [facility] (DEFAULT) [address] [place] [address] 41589 Glucose [Mass/Vol] 112 mg/dL High 70-99 [facility] Comment on above: Performed By: #### B FLD #### [facility] (DEFAULT) [address] [place] [address] 05021 Osmolality [Osmolality] 295 mosm/kg Normal 278-305 [facility] Comment on above: Performed By: #### B FLD #### [facility] (DEFAULT) [address] [place] [address]41 Potassium [Moles/Vol] 4.6 mmol/L Normal 3.5-5.0 [facility] Comment on above: Performed By: #### B FLD #### [facility] (DEFAULT) [address] [place] [address] 95479 Sodium [Moles/Vol] 133 mmol/L Low 135-145 [facility] Comment on above: Performed By: #### B FLD #### [facility] (DEFAULT) [address] [place] [address] 99199 Urea nitrogen [Mass/Vol] 49 mg/dL High 7-25 [facility] Comment on above: Performed By: #### B FLD #### [facility] (DEFAULT) [address] [place] [address] Urea nitrogen/Creatinine [Mass ratio] 12 mg/mg Normal [facility] Comment on above: Performed By: #### B FLD #### [facility] (DEFAULT) [address] [place] [address] Anion gap [Moles/Vol] 14 mmol/L 7 - 17 mmol/L [facility] Chloride [Moles/Vol] 99 mmol/L 98 - 10 8 mmol/L [facility] CO2 [Moles/Vol] 25 mmol/L 21 - 31 mmol/L [facility] Creatinine [Mass/Vol] 4.14 mg/dL High 0.50 - 1.20 mg/dL [facility] eGFR, CKD-EPI, Female 10 Low - PINF [facility] Glucose [Mass/Vol] 112 mg/dL High 70 - 99 mg/dL [facility] Osmolality Calc [Osmolality] 295 [facility] Potassium [Moles/Vol] 4.6 mmol/L 3.5 - 5.0 mmol/L [facility] Sodium [Moles/Vol] 133 mmol/L Low 135 - 145 mmol/L [facility] Urea nitrogen [Mass/Vol] 49 mg/dL High 7 - 25 mg/dL [facility] Urea nitrogen/Creatinine [Mass ratio] 12 mg/mg [facility] GLUCOSE POCon 09-17-2023 Glucose [Mass/Vol] 110 mg/dL High 70 - 99 mg/dL [facility] Interpretation and review of laboratory results Abnormal [facility] POC Sample Type [facility]BL [facility] Glucose [Mass/Vol] 220 mg/dL High 70 - 99 mg/dL [facility] Interpretation and review of laboratory results Abnormal [facility] POC Sample Type CAPBL [facility] Glucose [Mass/Vol] 95 mg/dL 70 - 99 mg/dL [facility] Glucose [Mass/Vol] 205 mg/dL High 70 - 99 mg/dL [facility] Interpretation and review of laboratory results Abnormal [facility] Glucose [Mass/Vol] 79 mg/dL 70 - 99 mg/dL [facility] POC Sample Type CAPBL [facility] MAGNESIUMon 09-17-2023 Magnesium [Mass/Vol] 1.6 mg/dL Normal 1.6-2.6 [facility] Comment on above: Performed By: #### B FLD #### [facility] (DEFAULT) [address] [place] [address] Interpretation and review of laboratory results Normal [facility] Magnesium [Mass/Vol] 1.6 mg/dL 1.6 - 2 .6 mg/dL [facility] No Panel Informationon 09-16 Interpretation and review of laboratory results Abnormal [facility] POC Sample Type CAPBL [facility] PARANEOPLASTIC SYNDROMEon Amphiphysin IgG IA Ql (S) Negative Negative [facility] Annotation comment [Interpretation] Narrative None. [facility] CV2 Ab IF Ql Negative Negative [facility] Glial nuclear type 1 Ab IF Ql (S) Negative Negative [facility] Neuronal nuclear type 1 Ab Ql (S) Negative Negative [facility] Neuronal nuclear type 2 Ab IF Ql (S) Negative Negative [facility] Neuronal nuclear type 3 Ab Ql (S) Negative Negative [facility] NEURONAL VGKC AB 0.00 nmol/L NINF - 0.02 nmol/L [facility] Paraneoplastic Ab [place] (S) [Interp] SEE COMMENTS [facility] SEO SPECIALIST-1 Ab IF Ql (S) Negative Negative [facility] SEO SPECIALIST-2 Ab IF Ql (S) Negative Negative [facility] SEO SPECIALIST-Tr Ab IF Ql (S) Negative Negative [facility] Voltage-gated calcium channel P/Q type binding IgG+IgM IA (S) [Moles/Vol] 0.00 nmol/L NINF - 0.02 nmol/L [facility] PHOSPHATE, INORGANICon 09-16 Phosphorous 3.5 mg/dL Normal 2.2-4.6 [facility] Comment on above: Performed By: #### B FLD #### [facility] (DEFAULT) [address] [address] PHOSPHATE, INORGANICOrdered By: Pankaj Cordero on 09-17-2023 Interpretation and review of laboratory results Normal [facility] Phosphate [Mass/Vol] 3.5 mg/dL 2.2 - 4 .6 mg/dL [facility] PTH INTACTOrdered By: Yoselyn Minor on 09-17-2023 Interpretation and review of laboratory results Abnormal [facility] Parathyrin.intact [Mass/Vol] 179.4 pg/mL High 14.0 - 72.0 pg/mL [facility] PTH INTACTon 09-17-2023 Intact PTH 179.4 pg/mL High 14.0-72.0 [facility] Comment on above: Performed By: #### C SFLC #### [facility] (DEFAULT) [address] [address] CBC,PLATELETSon 09-16-2023 Hematocrit (Bld) [Volume fraction] 25.2 % Low 34.9-44.3 [facility] Comment on above: Performed By: #### N ONGNFNA #### [facility] (DEFAULT) [address] [address] Hemoglobin (Bld) [Mass/Vol] 7.9 g/dL Low 11.4-15.2 [facility] Comment on above: Performed By: #### N ONGNFNA #### [facility] (DEFAULT) [address] [place] [address]226 MCV (RBC) [Entitic vol] 94.4 fL Normal 79.6-97.7 [facility] Comment on above: Performed By: #### N ONGNFNA #### [facility] (DEFAULT) [address] [place] [address]40 Mean Cell Hgb 29.6 pg Normal 25.9-33.9 [facility] Comment on above: Performed By: #### N ONGNFNA #### [facility] (DEFAULT) [address] [address] Mean Cell Hgb Conc 31.3 g/dL Low 31.4-35.9 [facility] Comment on above: Performed By: #### N ONGNFNA #### [facility] (DEFAULT) [address] [address] Platelet mean volume (Bld) [Entitic vol] 10.8 fL Normal 8.5-12.2 [facility] Comment on above: Performed By: #### N ONGNFNA #### [facility] (DEFAULT) [address] [address] Platelets (Bld) [#/Vol] 121 10*3/uL Low 150-393 [facility] Comment on above: Performed By: #### N ONGNFNA #### [facility] (DEFAULT) [address] [address] RBC (Bld) [#/Vol] 2.67 10*6/uL Low 3.91-5.04 [facility] Comment on above: Performed By: #### N ONGNFNA #### [facility] (DEFAULT) [address] [address] RBC Distribution 16.2 % High 10.8-14.9 [facility] Comment on above: Performed By: #### N ONGNFNA #### [facility] (DEFAULT) [address] [address] WBC (Bld) [#/Vol] 9.63 10*3/uL Normal 3.99-11.19 [facility] Comment on above: Performed By: #### N ONGNFNA #### [facility] (DEFAULT) [address] [place] [address] Erythrocyte distribution width (RBC) [Ratio] 16.2 % High 10.8 - 14.9 % [facility] Hematocrit (Bld) [Volume fraction] 25.2 % Low 34.9 - 44.3 % [facility] Hemoglobin (Bld) [Mass/Vol] 7.9 g/dL Low 11.4 - 15.2 g/dL [facility] Interpretation and review of laboratory results Abnormal [facility] MCH (RBC) [Entitic mass] 29.6 pg 25.9 - 33.9 pg [facility] MCHC (RBC) [Mass/Vol] 31.3 g/dL Low 31.4 - 35.9 g/dL [facility] MCV (RBC) [Entitic vol] 94.4 fL 79.6 - 97.7 fL [facility] Platelet mean volume (Bld) [Entitic vol] 10.8 fL 8.5 - 12.2 fL [facility] Platelets (Bld) [#/Vol] 121 10*3/uL Low 150 - 393 K/uL [facility] RBC (Bld) [#/Vol] 2.67 10*6/uL Low [facility] WBC (Bld) [#/Vol] 9.63 10*3/uL 3.99 - 11. 19 K/uL [facility] CHEM 7 (LYTES,BUN,CREA,GLUC) on 09-16-2023 Anion gap [Moles/Vol] 16 mmol/L Normal 7-17 [facility] Comment on above: Performed By: #### C SFLC #### [facility] (DEFAULT) [address] [place] [address] Chloride [Moles/Vol] 98 mmol/L Normal 98-108 [facility] Comment on above: Performed By: #### C SFLC #### [facility] (DEFAULT) [address] [place] [address] CO2 [Moles/Vol] 23 mmol/L Normal 21-31 [facility] Comment on above: Performed By: #### C SFLC #### [facility] (DEFAULT) [address] [place] [address] Creatinine [Mass/Vol] 3.02 mg/dL High 0.50-1.20 [facility] Comment on above: Performed By: #### C SFLC #### [facility] (DEFAULT) [address] [place] [address] GFR/1.73 sq M.predicted among non-blacks MDRD (S/P/Bld) [Vol rate/Area] 15 mL/min/{1.73_m2} Low >=60 [facility] Comment on above: Result Comment: Repo rted eGFR is based on the CKD-EPI 2020 equation using creatinine, age, and sex. Performed By: #### C SFLC #### [facility] (DEFAULT) [address] [place] [address] Glucose [Mass/Vol] 278 mg/dL High 70-99 [facility] Comment on above: Performed By: #### C SFLC #### [facility] (DEFAULT) [address] [place] [address] Osmolality [Osmolality] 299 mosm/kg Normal 278-305 [facility] Comment on above: Performed By: #### C SFLC #### [facility] (DEFAULT) [address] [address] Potassium [Moles/Vol] 3.8 mmol/L Normal 3.5-5.0 [facility] Comment on above: Performed By: #### C SFLC #### [facility] (DEFAULT) [address] [place] [address]462 Sodium [Moles/Vol] 133 mmol/L Low 135-145 [facility] Comment on above: Performed By: #### C SFLC #### [facility] (DEFAULT) [address] [place] [address] Urea nitrogen [Mass/Vol] 35 mg/dL High 7-25 [facility] Comment on above: Performed By: #### C SFLC #### [facility] (DEFAULT) [address] [place] [address] Urea nitrogen/Creatinine [Mass ratio] 12 mg/mg Normal [facility] Comment on above: Performed By: #### C SFLC #### [facility] (DEFAULT) [address] [place] [address] CHEM 7 (LYTES,BUN,CREA,GLUC) Ordered By: Carri Miles on 09-16-2023 Anion gap [Moles/Vol] 16 mmol/L 7 - 17 mmol/L [facility] Chloride [Moles/Vol] 98 mmol/L 98 - 10 8 mmol/L [facility] CO2 [Moles/Vol] 23 mmol/L 21 - 31 mmol/L [facility] Creatinine [Mass/Vol] 3.02 mg/dL High 0.50 - 1.20 mg/dL [facility] eGFR, CKD-EPI, Female 15 Low - PINF [facility] Glucose [Mass/Vol] 278 mg/dL High 70 - 99 mg/dL [facility] Interpretation and review of laboratory results Abnormal [facility] Osmolality Calc [Osmolality] 299 [facility] Potassium [Moles/Vol] 3.8 mmol/L 3.5 - 5.0 mmol/L [facility] Sodium [Moles/Vol] 133 mmol/L Low 135 - 145 mmol/L [facility] Urea nitrogen [Mass/Vol] 35 mg/dL High 7 - 25 mg/dL [facility] Urea nitrogen/Creatinine [Mass ratio] 12 mg/mg [facility] GLUCOSE POCon 09-16-2023 Glucose [Mass/Vol] 117 mg/dL High 70 - 99 mg/dL [facility] Glucose [Mass/Vol] 146 mg/dL High 70 - 99 mg/dL [facility] Glucose [Mass/Vol] 50 mg/dL Low 70 - 99 mg/dL [facility] Glucose [Mass/Vol] 67 mg/dL Low 70 - 99 mg/dL [facility] Glucose [Mass/Vol] 116 mg/dL High 70 - 99 mg/dL [facility] Glucose [Mass/Vol] 396 mg/dL High 70 - 99 mg/dL [facility] Interpretation and review of laboratory results Abnormal [facility] POC Sample Type CAPBL [facility] Glucose [Mass/Vol] 144 mg/dL High 70 - 99 mg/dL [facility] Interpretation and review of laboratory results Abnormal [facility] POC Sample Type [facility] Glucose [Mass/Vol] 451 mg/dL Critically high 70 - 9 9 mg/dL [facility] Glucose [Mass/Vol] 264 mg/dL High 70 - 99 mg/dL [facility] Glucose [Mass/Vol] 295 mg/dL High 70 - 99 mg/dL [facility] Interpretation and review of laboratory results Abnormal [facility] POC Sample Type CAPBL [facility] MAGNESIUMon 09-16-2023 Magnesium [Mass/Vol] 1.6 mg/dL Normal 1.6-2.6 [facility] Comment on above: Performed By: #### C SFLC #### [facility] (DEFAULT) [address] [place] [address] Interpretation and review of laboratory results Normal [facility] Magnesium [Mass/Vol] 1.6 mg/dL 1.6 - 2 .6 mg/dL [facility] MR Brain WO and W contrast I Von 09-16-2023 RADIOLOGY RADIOLOGY [facility] MR Brain WO and W contrast I VOrdered By: Gita Whitley on 09-16-2023 [facility] Work Phone: MRI BRAIN WITH AND WITHOUT C ONTRASTon 09-16-2023 MRI BRAIN WITH AND WITHOUT CONTRAST EXAM: MRI BRAIN WITH AND WITHOUT CONTRAST, 09/12/2023 05:57 AM COMPARISON: No priors available for comparison. CLINICAL INDICATIONS: 82 years Female Mental status change, unknown cause; RELEVANT CLINICAL HISTORY: TECHNIQUE: A series of multisequence, multiplanar images of the brain are obtained both before and after intravenous administration of gadolinium-based contrast using standard protocol. CONTRAST: FINDINGS: Scattered foci of T2/FLAIR signal hyperintensity are seen in the white matter of both cerebral hemispheres, nonspecific, but most likely representing chronic microvascular ischemic change. Prominence of the ventricles and sulci likely related to volume loss. No evidence of edema. No evidence of mass lesion. No evidence of hemorrhage. No diffusion restriction or evidence of acute infarct is identified. No abnormal enhancement. No extracerebral collection. Sellar and parasellar structures are unremarkable. Posterior fossa is unremarkable. Ventricles and sulci are within normal limits. Extracranial structures are unremarkable. IMPRESSION: No evidence of an acute infarct. Changes of chronic microvascular disease. No intraparenchymal enhancing lesions identified. There is prominence of the ventricles which is likely related to parenchymal volume loss. Other considerations include normal pressure hydrocephalus.] Normal [facility] No Panel Informationon 09-15 Interpretation and review of laboratory results Abnormal [facility] POC Sample Type CAPBL [facility] Interpretation and review of laboratory results Abnormal [facility] POC Sample Type CAPBL [facility] Interpretation and review of laboratory results Abnormal [facility] POC Sample Type CAPBL [facility] OLIGOCLONAL BANDS, CSF AND S ERUMon 09-16-2023 Oligoclonal Bands Interpretation, CSF 0 NINF [facility] Oligoclonal bands Isoelectric focusing (CSF) [#] 2 bands [facility] Oligoclonal Bands, Serum 2 bands [facility] CALCIUMon 09-15-2023 Calcium [Mass/Vol] 8.6 mg/dL Normal 8.6-10.5 [facility] Comment on above: Performed By: #### T YPEC #### [facility] (DEFAULT) [address] [place] [address] Calcium [Mass/Vol] 8.6 mg/dL 8.6 - 10. 5 mg/dL [facility] CBC,PLATELETSon 09-15-2023 Hematocrit (Bld) [Volume fraction] 27.2 % Low 34.9-44.3 [facility] Comment on above: Performed By: #### H EMOGC #### [facility] (DEFAULT) [address] [address] Hemoglobin (Bld) [Mass/Vol] 8.6 g/dL Low 11.4-15.2 [facility] Comment on above: Performed By: #### H EMOGC #### [facility] (DEFAULT) [address] [address] MCV (RBC) [Entitic vol] 95.4 fL Normal 79.6-97.7 O [facility] Comment on above: Performed By: #### H EMOGC #### [facility] (DEFAULT) [address] [place] [address] Mean Cell Hgb 30.2 pg Normal 25.9-33.9 [facility] Comment on above: Performed By: #### H EMOGC #### [facility] (DEFAULT) [address] [address] Mean Cell Hgb Conc 31.6 g/dL Normal 31.4-35.9 [facility] Comment on above: Performed By: #### H EMOGC #### [facility] (DEFAULT) [address] [place] [address] Platelet mean volume (Bld) [Entitic vol] 11.2 fL Normal 8.5-12.2 [facility] Comment on above: Performed By: #### H EMO #### [facility] (DEFAULT) [address] [place] [address] Platelets (Bld) [#/Vol] 114 10*3/uL Low 150-393 [facility] Comment on above: Performed By: #### H EMO #### [facility] (DEFAULT) [address] [place] [address] RBC (Bld) [#/Vol] 2.85 10*6/uL Low 3.91-5.04 [facility] Comment on above: Performed By: #### H EMO #### [facility] (DEFAULT) [address] [place] [address]992 RBC Distribution 15.9 % High 10.8-14.9 [facility] Comment on above: Performed By: #### H EMO #### [facility] (DEFAULT) [address] [place] [address] WBC (Bld) [#/Vol] 14.99 10*3/uL High 3.99-11.19 [facility] Comment on above: Performed By: #### H EMOGC #### [facility] (DEFAULT) [address] [place] [address] Erythrocyte distribution width (RBC) [Ratio] 15.9 % High 10.8 - 14.9 % [facility] Hematocrit (Bld) [Volume fraction] 27.2 % Low 34.9 - 44.3 % [facility] Hemoglobin (Bld) [Mass/Vol] 8.6 g/dL Low 11.4 - 15.2 g/dL [facility] Interpretation and review of laboratory results Abnormal [facility] MCH (RBC) [Entitic mass] 30.2 pg 25.9 - 33.9 pg [facility] MCHC (RBC) [Mass/Vol] 31.6 g/dL 31.4 - 35.9 g/dL [facility] MCV (RBC) [Entitic vol] 95.4 fL 79.6 - 97.7 fL [facility] Platelet mean volume (Bld) [Entitic vol] 11.2 fL 8.5 - 12.2 fL [facility] Platelets (Bld) [#/Vol] 114 10*3/uL Low 150 - 393 K/uL [facility] RBC (Bld) [#/Vol] 2.85 10*6/uL Low [facility] WBC (Bld) [#/Vol] 14.99 10*3/uL High 3.99 - 11 .19 K/uL [facility] CHEM 7 (LYTES,BUN,CREA,GLUC) on 09-15-2023 Anion gap [Moles/Vol] 20 mmol/L High 7-17 [facility] Comment on above: Performed By: #### T YPEC #### [facility] (DEFAULT) [address] [address] Chloride [Moles/Vol] 94 mmol/L Low 98-108 [facility] Comment on above: Performed By: #### T YPEC #### [facility] (DEFAULT) [address] [place] [address] CO2 [Moles/Vol] 21 mmol/L Normal 21-31 [facility] Comment on above: Performed By: #### T YPEC #### [facility] (DEFAULT) [address] [address] Creatinine [Mass/Vol] 4.44 mg/dL High 0.50-1.20 [facility] Comment on above: Performed By: #### T YPEC #### [facility] (DEFAULT) [address] [address] GFR/1.73 sq M.predicted among non-blacks MDRD (S/P/Bld) [Vol rate/Area] 9 mL/min/{1.73_m2} Low >=60 [facility] Comment on above: Result Comment: Repo rted eGFR is based on the CKD-EPI 2020 equation using creatinine, age, and sex. Performed By: #### T YPEC #### U [facility] (DEFAULT) [address] [place] [address] Glucose [Mass/Vol] 225 mg/dL High 70-99 [facility] Comment on above: Performed By: #### T YPEC #### [facility] (DEFAULT) [address] [place] [address] Osmolality [Osmolality] 301 mosm/kg Normal 278-305 [facility] Comment on above: Performed By: #### T YPEC #### [facility] (DEFAULT) [address] [address] Potassium [Moles/Vol] 5.4 mmol/L High 3.5-5.0 [facility] Comment on above: Performed By: #### T YPEC #### [facility] (DEFAULT) [address] [place] [address] Sodium [Moles/Vol] 130 mmol/L Low 135-145 [facility] Comment on above: Performed By: #### T YPEC #### [facility] (DEFAULT) [address] [place] [address] 33936 Urea nitrogen [Mass/Vol] 58 mg/dL High 7-25 [facility] Comment on above: Performed By: #### T YPEC #### [facility] (DEFAULT) [address] [place] [address] Urea nitrogen/Creatinine [Mass ratio] 13 mg/mg Normal [facility] Comment on above: Performed By: #### T YPEC #### [facility] (DEFAULT) [address] [place] [address]80 Anion gap [Moles/Vol] 20 mmol/L High 7 - 17 mmol/L [facility] Chloride [Moles/Vol] 94 mmol/L Low 98 - 10 8 mmol/L [facility] CO2 [Moles/Vol] 21 mmol/L 21 - 31 mmol/L [facility] Creatinine [Mass/Vol] 4.44 mg/dL High 0.50 - 1.20 mg/dL [facility] eGFR, CKD-EPI, Female 9 Low - PINF [facility] Glucose [Mass/Vol] 225 mg/dL High 70 - 99 mg/dL [facility] Osmolality Calc [Osmolality] 301 [facility] Potassium [Moles/Vol] 5.4 mmol/L High 3.5 - 5.0 mmol/L [facility] Sodium [Moles/Vol] 130 mmol/L Low 135 - 145 mmol/L [facility] Urea nitrogen [Mass/Vol] 58 mg/dL High 7 - 25 mg/dL [facility] Urea nitrogen/Creatinine [Mass ratio] 13 mg/mg [facility] CYTOLOGY, NON-ENDOSCOPY TECHNICAN - FNA ONLY on 09-15-2023 CYTOLOGIC DIAGNOSIS Normal [facility] Comment on above: Result Comment: A. D UODENAL SUBMUCOSAL LESION, FNA (CYTOLOGY AND CELL BLOCK): FINAL DIAGNOSIS: Leiomyoma Note: By immunohistochemistry, the tumor cells are positive for SMA and H-Caldesmon and are negative for DOG-1, CD117, and S-100. Immediate Study: Adequacy/Preliminary Diagnosis: Lesional Tissue Present Dr. Bright Veloz Notified Raya Renteria MD, September 15, 2023 FNA Performed By: Clinician All controls show appropriate reactivity. All immunohistochemistry, in situ hybridization, and histochemical tests were developed by and are performed at the [facility], [address] [place] [address].All Immunofluorescent (IF) tests were developed by and are performed at the [facility], [address] [place] [address]. All tests reported here, except those addressing HER2 overexpression as a predictive marker, have not been cleared by or approved by the US Food and Drug Administration (FDA). The laboratory is regulated under CLIA as qualified to perform high-complexity testing. The tests are used for clinical purposes. They should not be regarded as investigational or for research. Performed By: #### N ONGNFNA #### [facility] (DEFAULT) [address] [place] [address] Case Report [facility] Comment on above: Result Comment: [facility] antionette Cytology Report Case: [id number] Authorizing Provider: Raya Veloz DO Collected: 09/15/2023 01:32 PM Ordering Location: [facility] Received: 09/15/2023 02:09 PM Pathologist: Chalino Mayo MD Specimen: SOFT TISSUE FNA, Duodenal Submucosal Lesion Performed By: #### N ONGNFNA #### [facility] (DEFAULT) [address] [place] [address] Gross Description [facility] Comment on above: Result Comment: Duod enal Submucosal Soft Tissue-FNA 8.5mls hazy pink fluid in RPMI 2 Slides DQ Stain 2 Slides Pap Stain 1 CB Time specimen placed in formalin: 09/15/23 at 14:20 Time specimen removed from formalin: 09/15/23 at 20:00 Total Fixation Time: 5 hours 40 minutes Performed By: #### N ONGNFNA #### [facility] (DEFAULT) [address] [place] [address] Microscopic Description [facility] Comment on above: Result Comment: All controls show appropriate reactivity. All immunohistochemistry, in situ hybridization and histochemical tests were developed by and are performed at the [facility], [facility]. All tests reported here, except those addressing HER2, ALK and PD-L1 expression as a predictive marker, have not been cleared by or approved by the FDA. The laboratory is regulated under CLIA as qualified to perform high-complexity testing. The tests are used for clinical purposes. They should not be regarded as investigational or for research. Performed By: #### N ONGNFNA #### [facility] (DEFAULT) [address] [place] [address] Professional Interpretation Performed at: [facility] Comment on above: Result Comment: For Immediate Release to Patient's MyChart? Yes [facility] [address] [address] Performed By: #### N ONGNFNA #### [facility] (DEFAULT) [address] [place] [address] GLUCOSE POCon 09-15-2023 Glucose [Mass/Vol] 403 mg/dL Critically high 70 - 9 9 mg/dL [facility] Interpretation and review of laboratory results Abnormal [facility] POC Sample Type CAPBL [facility] Glucose [Mass/Vol] 131 mg/dL High 70 - 99 mg/dL [facility] Glucose [Mass/Vol] 168 mg/dL High 70 - 99 mg/dL [facility] Glucose [Mass/Vol] 131 mg/dL High 70 - 99 mg/dL [facility] Interpretation and review of laboratory results Abnormal [facility] POC Sample Type VENO [facility] Glucose [Mass/Vol] 233 mg/dL High 70 - 99 mg/dL [facility] Interpretation and review of laboratory results Abnormal [facility] POC Sample Type CAPBL [facility] Glucose [Mass/Vol] 200 mg/dL High 70 - 99 mg/dL [facility] Interpretation and review of laboratory results Abnormal [facility] POC Sample Type CAPBL [facility] MAGNESIUMon 09-15-2023 Magnesium [Mass/Vol] 1.9 mg/dL Normal 1.6-2.6 [facility] Comment on above: Performed By: #### T YPEC #### [facility] (DEFAULT) [address] [place] [address] Magnesium [Mass/Vol] 1.9 mg/dL 1.6 - 2 .6 mg/dL [facility] No Panel Informationon 09-14 Interpretation and review of laboratory results Abnormal [facility] POC Sample Type CAPBL [facility] Interpretation and review of laboratory results Abnormal [facility] Interpretation and review of laboratory results Normal [facility] PHOSPHATE, INORGANICon 09-14 Phosphorous 6.2 mg/dL High 2.2-4.6 [facility] Comment on above: Performed By: #### X M #### [facility] (DEFAULT) [address] [place] [address] Phosphate [Mass/Vol] 6.2 mg/dL High 2.2 - 4 .6 mg/dL [facility] PT,INR,PTTon 09-15-2023 aPTT Coag (Bld) [Time] 25.4 s Normal 24.0-34.3 [facility] Comment on above: Performed By: #### P TPTT #### [facility] (DEFAULT) [address] [place] [address] INR Coag (PPP) [Relative time] 1.3 {INR} High 0.9-1.1 [facility] Comment on above: Performed By: #### P TPTT #### [facility] (DEFAULT) [address] [place] [address] PT Coag (PPP) [Time] 16.3 s High 11.9-14.2 [facility] Comment on above: Performed By: #### P TPTT #### [facility] (DEFAULT) [address] [place] [address] aPTT Coag (PPP) [Time] 25.4 s [facility] INR Coag (Bld) [Relative time] 1.3 {INR} High 0.9 - 1.1 [facility] PT Coag (PPP) [Time] 16.3 s High [facility] UPPER EUSon 09-15-2023 LAB, [facility] Radiology Study observation (narrative) [facility] VITAMIN B1on 09-15-2023 THIAMIN, RBC 134 nmol/L Normal 70-180 [facility] Comment on above: Result Comment: ADDITIONAL INFORMATION This test was developed and its performance characteristics determined by [facility] in a manner consistent with CLIA requirements. This test has not been cleared or approved by the U.S. Food and Drug Administration. Test Performed by: [facility] [address] [place] [address] [place]: Alfredito Rice M.D. Ph.D.; CLIA# [id number] Performed By: #### N ONGNFNA #### [facility] (DEFAULT) [address] [address] CBC,PLATELETSon 09-14-2023 Hematocrit (Bld) [Volume fraction] 26.4 % Low 34.9-44.3 [facility] Comment on above: Performed By: #### C SFLC #### [facility] (DEFAULT) [address] [address] Hemoglobin (Bld) [Mass/Vol] 8.4 g/dL Low 11.4-15.2 [facility] Comment on above: Performed By: #### C SFLC #### [facility] (DEFAULT) [address] [address] MCV (RBC) [Entitic vol] 94.6 fL Normal 79.6-97.7 O [facility] Comment on above: Performed By: #### C SFLC #### [facility] (DEFAULT) [address] [address] Mean Cell Hgb 30.1 pg Normal 25.9-33.9 [facility] Comment on above: Performed By: #### C SFLC #### [facility] (DEFAULT) [address] [address] Mean Cell Hgb Conc 31.8 g/dL Normal 31.4-35.9 [facility] Comment on above: Performed By: #### C SFLC #### [facility] (DEFAULT) [address] [place] [address] Platelet mean volume (Bld) [Entitic vol] 12.0 fL Normal 8.5-12.2 [facility] Comment on above: Performed By: #### C SFLC #### [facility] (DEFAULT) [address] [place] [address] Platelets (Bld) [#/Vol] 131 10*3/uL Low 150-393 [facility] Comment on above: Performed By: #### C SFLC #### [facility] (DEFAULT) [address] [place] [address] RBC (Bld) [#/Vol] 2.79 10*6/uL Low 3.91-5.04 [facility] Comment on above: Performed By: #### C SFLC #### [facility] (DEFAULT) [address] [place] [address] RBC Distribution 15.9 % High 10.8-14.9 [facility] Comment on above: Performed By: #### C SFLC #### [facility] (DEFAULT) [address] [place] [address] WBC (Bld) [#/Vol] 13.09 10*3/uL High 3.99-11.19 [facility] Comment on above: Performed By: #### C SFLC #### [facility] (DEFAULT) [address] [place] [address] Erythrocyte distribution width (RBC) [Ratio] 15.9 % High 10.8 - 14.9 % [facility] Hematocrit (Bld) [Volume fraction] 26.4 % Low 34.9 - 44.3 % [facility] Hemoglobin (Bld) [Mass/Vol] 8.4 g/dL Low 11.4 - 15.2 g/dL [facility] Interpretation and review of laboratory results Abnormal [facility] MCH (RBC) [Entitic mass] 30.1 pg 25.9 - 33.9 pg [facility] MCHC (RBC) [Mass/Vol] 31.8 g/dL 31.4 - 35.9 g/dL [facility] MCV (RBC) [Entitic vol] 94.6 fL 79.6 - 97.7 fL [facility] Platelet mean volume (Bld) [Entitic vol] 12.0 fL 8.5 - 12.2 fL [facility] Platelets (Bld) [#/Vol] 131 10*3/uL Low 150 - 393 K/uL [facility] RBC (Bld) [#/Vol] 2.79 10*6/uL Low [facility] WBC (Bld) [#/Vol] 13.09 10*3/uL High 3.99 - 11 .19 K/uL [facility] CHEM 7 (LYTES,BUN,CREA,GLUC) on 09-14-2023 Anion gap [Moles/Vol] 18 mmol/L High 7-17 [facility] Comment on above: Performed By: #### X M #### [facility] (DEFAULT) [address] [place] [address] Chloride [Moles/Vol] 96 mmol/L Low 98-108 [facility] Comment on above: Performed By: #### X M #### [facility] (DEFAULT) [address] [place] [address] CO2 [Moles/Vol] 23 mmol/L Normal 21-31 [facility] Comment on above: Performed By: #### X M #### [facility] (DEFAULT) [address] [address] Creatinine [Mass/Vol] 3.53 mg/dL High 0.50-1.20 [facility] Comment on above: Performed By: #### X M #### [facility] (DEFAULT) [address] [place] [address] GFR/1.73 sq M.predicted among non-blacks MDRD (S/P/Bld) [Vol rate/Area] 12 mL/min/{1.73_m2} Low >=60 [facility] Comment on above: Result Comment: Repo rted eGFR is based on the CKD-EPI 2020 equation using creatinine, age, and sex. Performed By: #### X M #### U [facility] (DEFAULT) [address] [place] [address] Glucose [Mass/Vol] 184 mg/dL High 70-99 [facility] Comment on above: Performed By: #### X M #### [facility] (DEFAULT) [address] [place] [address] Osmolality [Osmolality] 295 mosm/kg Normal 278-305 [facility] Comment on above: Performed By: #### X M #### [facility] (DEFAULT) [address] [place] [address] Potassium [Moles/Vol] 5.0 mmol/L Normal 3.5-5.0 [facility] Comment on above: Performed By: #### X M #### [facility] (DEFAULT) [address] [place] [address] Sodium [Moles/Vol] 132 mmol/L Low 135-145 [facility] Comment on above: Performed By: #### X M #### [facility] (DEFAULT) [address] [place] [address] Urea nitrogen [Mass/Vol] 39 mg/dL High 7-25 [facility] Comment on above: Performed By: #### X M #### [facility] (DEFAULT) [address] [place] [address] Urea nitrogen/Creatinine [Mass ratio] 11 mg/mg Normal [facility] Comment on above: Performed By: #### X M #### [facility] (DEFAULT) [address] [place] [address] Anion gap [Moles/Vol] 18 mmol/L High 7 - 17 mmol/L [facility] Chloride [Moles/Vol] 96 mmol/L Low 98 - 10 8 mmol/L [facility] CO2 [Moles/Vol] 23 mmol/L 21 - 31 mmol/L [facility] Creatinine [Mass/Vol] 3.53 mg/dL High 0.50 - 1.20 mg/dL [facility] eGFR, CKD-EPI, Female 12 Low - PINF [facility] Glucose [Mass/Vol] 184 mg/dL High 70 - 99 mg/dL [facility] Interpretation and review of laboratory results Abnormal [facility] Osmolality Calc [Osmolality] 295 [facility] Potassium [Moles/Vol] 5.0 mmol/L 3.5 - 5.0 mmol/L [facility] Sodium [Moles/Vol] 132 mmol/L Low 135 - 145 mmol/L [facility] Urea nitrogen [Mass/Vol] 39 mg/dL High 7 - 25 mg/dL [facility] Urea nitrogen/Creatinine [Mass ratio] 11 mg/mg [facility] GLUCOSE POCon 09-14-2023 Glucose [Mass/Vol] 238 mg/dL High 70 - 99 mg/dL [facility] Interpretation and review of laboratory results Abnormal [facility] POC [facility] Glucose [Mass/Vol] 211 mg/dL High 70 - 99 mg/dL [facility] Interpretation and review of laboratory results Abnormal [facility] POC Sample Type CAPBL [facility] Glucose [Mass/Vol] 168 mg/dL High 70 - 99 mg/dL [facility] Interpretation and review of laboratory results Abnormal [facility] POC Sample Type [facility] Glucose [Mass/Vol] 218 mg/dL High 70 - 99 mg/dL [facility] Interpretation and review of laboratory results Abnormal [facility] POC Sample Type CAPBL [facility] LIPASEon 09-14-2023 Lipase [Catalytic activity/Vol] 22 U/L Normal [facility] Comment on above: Performed By: #### X M #### [facility] (DEFAULT) [address] [place] [address] Lipase [Catalytic activity/Vol] 22 U/L U/L [facility] MAGNESIUMon 09-14-2023 Magnesium [Mass/Vol] 1.9 mg/dL Normal 1.6-2.6 [facility] Comment on above: Performed By: #### X M #### [facility] (DEFAULT) [address] [place] [address] Magnesium [Mass/Vol] 1.9 mg/dL 1.6 - 2 .6 mg/dL [facility] No Panel Informationon 09-13 Interpretation and review of laboratory results Normal [facility] TYPE AND SCREENon 09-14-2023 ABO/RH(D) TYPE Positive Normal [facility] Comment on above: Performed By: #### X M #### [facility] (DEFAULT) [address] [place] [address] ABO/RH(D) TYPE Positive [facility] Bacteria identified Cx Nom ( Body fld)Ordered By: Manny Marsh on 09-13-2023 Bacteria identified Cx Nom (Unsp spec) NO GROWTH DAY 2 OF 2 [facility] Microscopic observation Other stain Nom (Unsp spec) Cytocentrifuge preparation [facility] Microscopic observation Other stain Nom (Unsp spec) Neutrophils, None [facility] Microscopic observation Other stain Nom (Unsp spec) Mononuclear cells present [facility] Microscopic observation Other stain Nom (Unsp spec) No organisms seen [facility] CBC,PLATELETSon 09-13-2023 Hematocrit (Bld) [Volume fraction] 29.3 % Low 34.9-44.3 [facility] Comment on above: Performed By: #### X M #### [facility] (DEFAULT) [address] [place] [address] Hemoglobin (Bld) [Mass/Vol] 9.7 g/dL Low 11.4-15.2 [facility] Comment on above: Performed By: #### X M #### [facility] (DEFAULT) [address] [place] [address] MCV (RBC) [Entitic vol] 91.6 fL Normal 79.6-97.7 [facility] Comment on above: Performed By: #### X M #### [facility] (DEFAULT) [address] [place] [address] 13554 Mean Cell Hgb 30.3 pg Normal 25.9-33.9 [facility] Comment on above: Performed By: #### X M #### [facility] (DEFAULT) [address] [place] [address] 14256 Mean Cell Hgb Conc 33.1 g/dL Normal 31.4-35.9 [facility] Comment on above: Performed By: #### X M #### [facility] (DEFAULT) [address] [place] [address] 88107 Platelet mean volume (Bld) [Entitic vol] 11.4 fL Normal 8.5-12.2 [facility] Comment on above: Performed By: #### X M #### [facility] (DEFAULT) [address] [place] [address] 39773 Platelets (Bld) [#/Vol] 140 10*3/uL Low 150-393 [facility] Comment on above: Performed By: #### X M #### U [facility] (DEFAULT) [address] [place] [address] 11886 RBC (Bld) [#/Vol] 3.20 10*6/uL Low 3.91-5.04 [facility] Comment on above: Performed By: #### X M #### [facility] (DEFAULT) [address] [place] [address] RBC Distribution 15.8 % High 10.8-14.9 [facility] Comment on above: Performed By: #### X M #### [facility] (DEFAULT) [address] [place] [address] WBC (Bld) [#/Vol] 8.28 10*3/uL Normal 3.99-11.19 [facility] Comment on above: Performed By: #### X M #### [facility] (DEFAULT) [address] [place] [address] Erythrocyte distribution width (RBC) [Ratio] 15.8 % High 10.8 - 14.9 % [facility] Hematocrit (Bld) [Volume fraction] 29.3 % Low 34.9 - 44.3 % [facility] Hemoglobin (Bld) [Mass/Vol] 9.7 g/dL Low 11.4 - 15.2 g/dL [facility] Interpretation and review of laboratory results Abnormal [facility] MCH (RBC) [Entitic mass] 30.3 pg 25.9 - 33.9 pg [facility] MCHC (RBC) [Mass/Vol] 33.1 g/dL 31.4 - 35.9 g/dL [facility] MCV (RBC) [Entitic vol] 91.6 fL 79.6 - 97.7 fL [facility] Platelet mean volume (Bld) [Entitic vol] 11.4 fL 8.5 - 12.2 fL [facility] Platelets (Bld) [#/Vol] 140 10*3/uL Low 150 - 393 K/uL [facility] RBC (Bld) [#/Vol] 3.20 10*6/uL Low [facility] WBC (Bld) [#/Vol] 8.28 10*3/uL 3.99 - 11. 19 K/uL [facility] CHEM 7 (LYTES,BUN,CREA,GLUC) on 09-13-2023 Anion gap [Moles/Vol] 15 mmol/L Normal 7-17 [facility] Comment on above: Performed By: #### X M #### U [facility] (DEFAULT) [address] [place] [address] 78534 Chloride [Moles/Vol] 99 mmol/L Normal 98-108 [facility] Comment on above: Performed By: #### X M #### U [facility] (DEFAULT) [address] [place] [address] 91853 CO2 [Moles/Vol] 28 mmol/L Normal 21-31 [facility] Comment on above: Performed By: #### X M #### [facility] (DEFAULT) [address] [place] [address] 00537 Creatinine [Mass/Vol] 2.49 mg/dL High 0.50-1.20 [facility] Comment on above: Performed By: #### X M #### U [facility] (DEFAULT) [address] [place] [address] 29551 GFR/1.73 sq M.predicted among non-blacks MDRD (S/P/Bld) [Vol rate/Area] 19 mL/min/{1.73_m2} Low >=60 [facility] Comment on above: Result Comment: Repo rted eGFR is based on the CKD-EPI 2020 equation using creatinine, age, and sex. Performed By: #### X M #### U [facility] (DEFAULT) [address] [place] [address] 49428 Glucose [Mass/Vol] 208 mg/dL High 70-99 [facility] Comment on above: Performed By: #### X M #### U [facility] (DEFAULT) [address] [place] [address] 67512 Osmolality [Osmolality] 300 mosm/kg Normal 278-305 [facility] Comment on above: Performed By: #### X M #### [facility] (DEFAULT) [address] [place] [address] Potassium [Moles/Vol] 4.8 mmol/L Normal 3.5-5.0 [facility] Comment on above: Performed By: #### X M #### [facility] (DEFAULT) [address] [place] [address] Sodium [Moles/Vol] 137 mmol/L Normal 135-145 [facility] Comment on above: Performed By: #### X M #### [facility] (DEFAULT) [address] [place] [address] Urea nitrogen [Mass/Vol] 24 mg/dL Normal 7-25 [facility] Comment on above: Performed By: #### X M #### [facility] (DEFAULT) [address] [place] [address] Urea nitrogen/Creatinine [Mass ratio] 10 mg/mg Normal [facility] Comment on above: Performed By: #### X M #### [facility] (DEFAULT) [address] [place] [address] 77655 Anion gap [Moles/Vol] 15 mmol/L 7 - 17 mmol/L [facility] Chloride [Moles/Vol] 99 mmol/L 98 - 10 8 mmol/L [facility] CO2 [Moles/Vol] 28 mmol/L 21 - 31 mmol/L [facility] Creatinine [Mass/Vol] 2.49 mg/dL High 0.50 - 1.20 mg/dL [facility] eGFR, CKD-EPI, Female 19 Low - PINF [facility] Glucose [Mass/Vol] 208 mg/dL High 70 - 99 mg/dL [facility] Interpretation and review of laboratory results Abnormal [facility] Osmolality Calc [Osmolality] 300 [facility] Potassium [Moles/Vol] 4.8 mmol/L 3.5 - 5.0 mmol/L [facility] Sodium [Moles/Vol] 137 mmol/L 135 - 145 mmol/L [facility] Urea nitrogen [Mass/Vol] 24 mg/dL 7 - 25 mg/dL [facility] Urea nitrogen/Creatinine [Mass ratio] 10 mg/mg [facility] GLUCOSE POCon 09-13-2023 Glucose [Mass/Vol] 202 mg/dL High 70 - 99 mg/dL [facility] Glucose [Mass/Vol] 145 mg/dL High 70 - 99 mg/dL [facility] Glucose [Mass/Vol] 264 mg/dL High 70 - 99 mg/dL [facility] Glucose [Mass/Vol] 234 mg/dL High 70 - 99 mg/dL [facility] Interpretation and review of laboratory results Abnormal [facility] POC Sample Type CAPBL [facility] MAGNESIUMon 09-13-2023 Magnesium [Mass/Vol] 1.8 mg/dL Normal 1.6-2.6 [facility] Comment on above: Performed By: #### X M #### [facility] (DEFAULT) [address] [place] [address] Interpretation and review of laboratory results Normal [facility] Magnesium [Mass/Vol] 1.8 mg/dL 1.6 - 2 .6 mg/dL [facility] No Panel Informationon 09-12 Interpretation and review of laboratory results Abnormal [facility] Port[facility] XR Chest Viewson RADIOLOGY RADIOLOGY [facility] Radiology Study observation (narrative) [facility] Portable XR Chest ViewsOrder ed By: Theron Acosta on 09-13-2023 [facility] Work Phone: XR CHEST 1 VIEW PORTABLEon 0 09-13-2023 XR CHEST 1 VIEW PORTABLE EXAM: XR CHEST 1 VIEW PORTABLE, 09/13/2023 13:09 PM COMPARISON: No prior studies available for comparison. CLINICAL INDICATIONS: LLL crackles on pulm exam RELEVANT CLINICAL HISTORY: FINDINGS: (Adequate technique) Implanted Devices: None Thorax: No acute findings in the chest. The lungs are grossly clear with no focal airspace disease or overt pulmonary edema. No definite pleural effusion or pneumothorax. Heart size is within normal limits. Chest wall structures are unremarkable. IMPRESSION: No evidence for pneumonia. Normal [facility] CBC,PLATELETSon 09-12-2023 Hematocrit (Bld) [Volume fraction] 26.8 % Low 34.9-44.3 [facility] Comment on above: Performed By: #### N ONGNFNA #### [facility] (DEFAULT) [address] [address] Hemoglobin (Bld) [Mass/Vol] 8.9 g/dL Low 11.4-15.2 [facility] Comment on above: Performed By: #### N ONGNFNA #### U [facility] (DEFAULT) [address] [place] [address] 95044 MCV (RBC) [Entitic vol] 91.2 fL Normal 79.6-97.7 O [facility] Comment on above: Performed By: #### N ONGNFNA #### [facility] (DEFAULT) [address] [place] [address] 37326 Mean Cell Hgb 30.3 pg Normal 25.9-33.9 [facility] Comment on above: Performed By: #### N ONGNFNA #### U [facility] (DEFAULT) [address] [place] [address] 75297 Mean Cell Hgb Conc 33.2 g/dL Normal 31.4-35.9 [facility] Comment on above: Performed By: #### N ONGNFNA #### [facility] (DEFAULT) [address] [place] [address] 80217 Platelet mean volume (Bld) [Entitic vol] 10.6 fL Normal 8.5-12.2 [facility] Comment on above: Performed By: #### N ONGNFNA #### [facility] (DEFAULT) [address] [place] [address] 47502 Platelets (Bld) [#/Vol] 121 10*3/uL Low 150-393 [facility] Comment on above: Performed By: #### N ONGNFNA #### [facility] (DEFAULT) [address] [place] [address] 19301 RBC (Bld) [#/Vol] 2.94 10*6/uL Low 3.91-5.04 [facility] Comment on above: Performed By: #### N ONGNFNA #### [facility] (DEFAULT) [address] [place] [address] 69627 RBC Distribution 15.9 % High 10.8-14.9 [facility] Comment on above: Performed By: #### N ONGNFNA #### [facility] (DEFAULT) [address] [place] [address] 13117 WBC (Bld) [#/Vol] 9.75 10*3/uL Normal 3.99-11.19 [facility] Comment on above: Performed By: #### N ONGNFNA #### [facility] (DEFAULT) [address] [place] [address] 92783 Erythrocyte distribution width (RBC) [Ratio] 15.9 % High 10.8 - 14.9 % [facility] Hematocrit (Bld) [Volume fraction] 26.8 % Low 34.9 - 44.3 % [facility] Hemoglobin (Bld) [Mass/Vol] 8.9 g/dL Low 11.4 - 15.2 g/dL [facility] Interpretation and review of laboratory results Abnormal [facility] MCH (RBC) [Entitic mass] 30.3 pg 25.9 - 33.9 pg [facility] MCHC (RBC) [Mass/Vol] 33.2 g/dL 31.4 - 35.9 g/dL [facility] MCV (RBC) [Entitic vol] 91.2 fL 79.6 - 97.7 fL [facility] Platelet mean volume (Bld) [Entitic vol] 10.6 fL 8.5 - 12.2 fL [facility] Platelets (Bld) [#/Vol] 121 10*3/uL Low 150 - 393 K/uL [facility] RBC (Bld) [#/Vol] 2.94 10*6/uL Low [facility] WBC (Bld) [#/Vol] 9.75 10*3/uL 3.99 - 11. 19 K/uL [facility] CHEM 7 (LYTES,BUN,CREA,GLUC) on 09-12-2023 Anion gap [Moles/Vol] 18 mmol/L High 7- [facility] Comment on above: Performed By: #### T YPEC #### [facility] (DEFAULT) [address] [place] [address] 96073 Chloride [Moles/Vol] 97 mmol/L Low 98-108 [facility] Comment on above: Performed By: #### T YPEC #### [facility] (DEFAULT) [address] [place] [address] 91179 CO2 [Moles/Vol] 22 mmol/L Normal 21-31 [facility] Comment on above: Performed By: #### T YPEC #### [facility] (DEFAULT) [address] [place] [address] 67915 Creatinine [Mass/Vol] 4.24 mg/dL High 0.50-1.20 [facility] Comment on above: Performed By: #### T YPEC #### [facility] (DEFAULT) [address] [place] [address] 70429 GFR/1.73 sq M.predicted among non-blacks MDRD (S/P/Bld) [Vol rate/Area] 10 mL/min/{1.73_m2} Low >=60 [facility] Comment on above: Result Comment: Repo rted eGFR is based on the CKD-EPI 2020 equation using creatinine, age, and sex. Performed By: #### T YPEC #### [facility] (DEFAULT) [address] [place] [address] 35544 Glucose [Mass/Vol] 103 mg/dL High 70-99 [facility] Comment on above: Performed By: #### T YPEC #### [facility] (DEFAULT) [address] [place] [address] Osmolality [Osmolality] 297 mosm/kg Normal 278-305 [facility] Comment on above: Performed By: #### T YPEC #### [facility] (DEFAULT) [address] [place] [address] 66359 Potassium [Moles/Vol] 5.3 mmol/L High 3.5-5.0 [facility] Comment on above: Performed By: #### T YPEC #### [facility] (DEFAULT) [address] [place] [address] 55286 Sodium [Moles/Vol] 132 mmol/L Low 135-145 [facility] Comment on above: Performed By: #### T YPEC #### [facility] (DEFAULT) [address] [place] [address] 71712 Urea nitrogen [Mass/Vol] 59 mg/dL High 7-25 [facility] Comment on above: Performed By: #### T YPEC #### [facility] (DEFAULT) [address] [place] [address] 41143 Urea nitrogen/Creatinine [Mass ratio] 14 mg/mg Normal [facility] Comment on above: Performed By: #### T YPEC #### [facility] (DEFAULT) [address] [place] [address] 76052 Anion gap [Moles/Vol] 18 mmol/L High 7 - 17 mmol/L [facility] Chloride [Moles/Vol] 97 mmol/L Low 98 - 10 8 mmol/L [facility] CO2 [Moles/Vol] 22 mmol/L 21 - 31 mmol/L [facility] Creatinine [Mass/Vol] 4.24 mg/dL High 0.50 - 1.20 mg/dL [facility] eGFR, CKD-EPI, Female 10 Low - PINF [facility] Glucose [Mass/Vol] 103 mg/dL High 70 - 99 mg/dL [facility] Osmolality Calc [Osmolality] 297 [facility] Potassium [Moles/Vol] 5.3 mmol/L High 3.5 - 5.0 mmol/L [facility] Sodium [Moles/Vol] 132 mmol/L Low 135 - 145 mmol/L [facility] Urea nitrogen [Mass/Vol] 59 mg/dL High 7 - 25 mg/dL [facility] Urea nitrogen/Creatinine [Mass ratio] 14 mg/mg [facility] CSF DIFFERENTIALOrdered By: Quinten Mccoy on 09-12-2023 Basophils/100 WBC Manual cnt (CSF) 0 % [facility] Work Phone: Cells Counted Total (CSF) [#] 32 [facility] Work Phone: Eosinophils/100 WBC Manual cnt (CSF) 0 % [facility] Work Phone: Interpretation and review of laboratory results Abnormal [facility] Work Phone: Lymphocytes/100 WBC Manual cnt (CSF) 38 % Low 40 - 80 % [facility] Work Phone: Monocytes+Macrophages/1 00 WBC (CSF) 50 % High 15 - 45 % [facility] Work Phone: Neutrophils/100 WBC Manual cnt (CSF) 13 % High NINF - 6 % [facility] Work Phone: Pathologist review [place] (Unsp spec) [Interp] Quinten Mccoy MD [facility] Work Phone: Pathology report comments [Interpretation] Narrative p0pphWFxQTWtxAOlREMoL0kr cwDzTVLwdFOiS9JewlbsRGlx ET5tGO1cpMmngGMlbCSrPCLe CcYfi8dgu609iSLwt3meILJS XBqzUPYBUIb7uQdtD50ck7Z6 UmnwN88prVCfBMN8VFVyNEHq eZSnCECuTQO9VHDzsZQjE8sk TRFbZW8puhobNKaxHYihTXOr oTF6JSShiBRpN2FxSQDzDKld RQImdmf1WuExGr7mgILfpYhc MFxwYXJkXHBsYWluXGZzMjBc hATruRSvgCqxSnvzaDR7MXff NpjehO0gsVRZGXITKinVIxex fyIrRC7DIOENPkSENT28TiO9 BeI8MXimeBadVqpwmmRtjUIo CcXexK0HzEIaQUVonyKsopZq xpevKL7rNSKmAxShQZLej5Iv gXtwEQ2fv6NzQWPqXbICjrR6 ndKhqPd9z8YbjEXlgdfsbvyi uHEmw1Raju0vGPPcYDZkCUsy BT9uSQH4eHKccjYaBH1sDTXv LQvgJdhtiS2cjQ5jlUNdAFOi u08hSR5tB69pqwUcTBXkl04i g2m1rISnmfJgCCN3BKamDBWh KMPrrJg6bDRmJKZoD46xnAYu PXNzRodpXlidbIL9KUgwTfpx gP6ijWCZRICGVylATilvwgFh DZ0XCTKUEU2HfKGqKoJvbXB8 FM99UCRdWPImaRZhDNrtK948 XHBsYWluXGZzMjAgIFxwYXJc jeRLKVIOAWbVZ9KuKIJRPCJF YUTbGdCCRP7oYwS8MeN5TX8p CjT4JhY9QwT3JBLPWAZZPSuJ RA3DUCHHIIKFTW1BIqQpA2vY RENBUkRfTUVUQURBVEFfQkVH MI6bG0zCOOCTUdLwOCNEELYP CZXnOV1NMSRBSTYERR5CLVOQ U10SHQUQYCMGG0XVT2nTCQEs r4TljIBFh0N8JBCnuUjxUIBi DUSbRuQeQuKbVK9kTYmFD2MC Y4wIVBKtWFXGIWPODIWrAI9J TXuFZQ6SNOBjTJCJDCJCLBUk HkTSYT4tIVwXAY2VEOPbAABB HZNUNNVsDA3XQRUBAV1NDWAA UQOWM89PPUKSJKHTI3LYO9qC KTNEXUAYGtOVZlKLLL6AXGEV LJYVPR3PYtW6 [facility] Work Phone: Tube number Nom (CSF) [ID] CSF TUBE 4 [facility] Work Phone: [facility] Work Phone: Chronic hepatitis differenti ation between hepatitis B and C virus panelon 09-12-2023 HBV core IgG+IgM Ql (S) Negative Negative [facility] HBV surface Ab IA Ql (S) Negative Negative [facility] HCV Ab Ql (S) Negative Negative [facility] Interpretation and review of laboratory results Normal [facility] DIALYSIS HEP PANEL-CHRONICon 09-12-2023 Hep B Core Ab,Total (IgG+IgM) Negative Normal Negative [facility] Comment on above: Performed By: #### X M #### [facility] (DEFAULT) [address] [address] Hep B Surface Ab Negative Normal Negative [facility] Comment on above: Performed By: #### X M #### [facility] (DEFAULT) [address] [address] Hepatitis C Antibody Negative Normal Negative [facility] Comment on above: Performed By: #### X M #### [facility] (DEFAULT) [address] [place] [address] 765[address] EXTRA ST[facility]ILEon [facility]-12-2023 [facility]-12-2023 Ferritin [Mass/Vol] 1580.8 ng/mL High 7.3-270.7 [facility] Comment on above: Performed By: #### B FLD #### [facility] (DEFAULT) [address] [place] [address] 03267 Ferritin [Mass/Vol] 1580.8 ng/mL High 7.3 - 27 0.7 ng/mL [facility] Interpretation and review of laboratory results Abnormal [facility] FOLATE, SERUMOrdered By: Jordon Amezcua on 09-12-2023 Folate [Mass/Vol] 200.71 ng/mL 5.38 - PIN F ng/mL [facility] Interpretation and review of laboratory results Normal [facility] FOLATE, SERUMon 09-12-2023 Folate 200.71 ng/mL Normal >5.38 [facility] Comment on above: Performed By: #### F OLSB #### [facility] (DEFAULT) [address] [place] [address] 56187 GLUCOSE POCon 09-12-2023 Glucose [Mass/Vol] 276 mg/dL High 70 - 99 mg/dL [facility] Interpretation and review of laboratory results Abnormal [facility] POC Sample Type CAPBL [facility] Glucose [Mass/Vol] 320 mg/dL High 70 - 99 mg/dL [facility] Interpretation and review of laboratory results Abnormal [facility] POC Sample Type CAPBL [facility] Glucose [Mass/Vol] 310 mg/dL High 70 - 99 mg/dL [facility] Glucose [Mass/Vol] 120 mg/dL High 70 - 99 mg/dL [facility] Glucose [Mass/Vol] 113 mg/dL High 70 - 99 mg/dL [facility] Interpretation and review of laboratory results Abnormal [facility] POC Sample Type CAPBL [facility] Glucose [Mass/Vol] 205 mg/dL High 70 - 99 mg/dL [facility] Interpretation and review of laboratory results Abnormal [facility] POC Sample [facility] HEP B SURFACE AG-STATOrdered By: Karen Gordon on 09-12-2023 HBV surface Ag Ql (S) Negative Negative [facility] Interpretation and review of laboratory results Normal [facility] HEP B SURFACE AG-[place] 08-26 Hepatitis B Surface Ag-Stat Negative Normal Negative [facility] Comment on above: Performed By: #### B FLD #### [facility] (DEFAULT) [address] [place] [address] 66401 IRON/IRON BINDING/TRANSFERRI Non 09-12-2023 Iron [Mass/Vol] 149 ug/dL Normal 40-174 [facility] Comment on above: Performed By: #### T YPEC #### [facility] (DEFAULT) [address] [place] [address] 89427 Iron Saturation 87 % High 20-55 [facility] Comment on above: Performed By: #### T YPEC #### [facility] (DEFAULT) [address] [place] [address] 00999 Total Iron Binding Capacity 171 mcg/dL Low 250-425 [facility] Comment on above: Performed By: #### T YPEC #### [facility] (DEFAULT) [address] [place] [address] 55747 Transferrin [Mass/Vol] 137 mg/dL Low 200-400 [facility] Comment on above: Performed By: #### T YPEC #### [facility] (DEFAULT) [address] [place] [address] 53634 Iron [Mass/Vol] 149 ug/dL [facility] Iron binding capacity [Mass/Vol] 171 Low [facility] Iron saturation [Mass fraction] 87 % High 20 - 55 % [facility] Transferrin [Mass/Vol] 137 mg/dL Low 200 - 400 mg/dL [facility] MAGNESIUMon 09-12-2023 Magnesium [Mass/Vol] 1.9 mg/dL Normal 1.6-2.6 [facility] Comment on above: Performed By: #### T YPEC #### [facility] (DEFAULT) [address] [place] [address] 59797 Magnesium [Mass/Vol] 1.9 mg/dL 1.6 - 2 .6 mg/dL [facility] MR Brain WO and W contrast I Von 09-12-2023 Radiology Study observation (narrative) [facility] No Panel Informationon 09-11 Interpretation and review of laboratory results Abnormal [facility] POC Sample Type CAPBL [facility] Interpretation and review of laboratory results Abnormal [facility] Interpretation and review of laboratory results Normal [facility] PHOSPHATE, INORGANICon 09-11 Phosphorous 4.3 mg/dL Normal 2.2-4.6 [facility] Comment on above: Performed By: #### T YPEC #### [facility] (DEFAULT) [address] [place] [address] 73035 Phosphate [Mass/Vol] 4.3 mg/dL 2.2 - 4 .6 mg/dL [facility] THYROGLOBULIN ANTIBODYon Thyroglobulin Ab IA Qn <1.8 NINF [facility] VITAMIN B12on 09-12-2023 Cobalamin (Vitamin B12) [Mass/Vol] 1097 pg/mL High 211-911 [facility] Comment on above: Result Comment: Test ing of Methylmalonic Acid and Intrinsic Factor Blocking Antibody are recommended if clinical suspicion for pernicious anemia due to B12 deficiency is high for patients with intermediate B12 levels (211 to 400 pg/mL) to rule out spurious heterophile antibodies. Performed By: #### B FLD #### [facility] (DEFAULT) [address] [place] [address] 55399 Cobalamin (Vitamin B12) [Mass/Vol] 1097 pg/mL High 211 - 911 pg/mL [facility] Interpretation and review of laboratory results Abnormal [facility] ABORH TYPE RECONFIRMATIONon 09-11-2023 ABO/RH(D) TYPE Positive Normal [facility] Comment on above: Performed By: #### T YPEC #### [facility] (DEFAULT) [address] [place] [address] 64014 ABO/RH(D) TYPE Positive [facility] ANTI MICROSOMAL ANTIBODYOrde red By: Jovani Casas on 09-11-2023 Interpretation and review of laboratory results Normal [facility] TPO Ab Qn NINF [facility] ANTI MICROSOMAL ANTIBODYon 0 09-11-2023 Anti-TPO Ab (Microsomal Ab) <28.0 Normal <60.0 [facility] Comment on above: Performed By: #### C SFLC #### [facility] (DEFAULT) [address] [place] [address] 48130 BODY FLUID CULTURE AND DIREC T SMEARon 09-11-2023 Bacteria identified Cx Nom (Unsp spec) NO GROWTH DAY 2 OF 2 Normal [facility] Comment on above: Performed By: #### B FLD #### [facility] (DEFAULT) [address] [place] [address] 35385 Microscopic observation Gram stain Nom (Unsp spec) Normal [facility] Comment on above: Result Comment: Cyto centrifuge preparation Neutrophils, None Mononuclear cells present No organisms seen Performed By: #### B FLD #### [facility] (DEFAULT) [address] [place] [address] 14480 CALCIUMon 09-11-2023 Calcium [Mass/Vol] 8.9 mg/dL 8.6 - 10. 5 mg/dL [facility] Interpretation and review of laboratory results Normal [facility] Calcium [Mass/Vol] 8.9 mg/dL Normal 8.6-10.5 [facility] Comment on above: Performed By: #### C SFLC #### [facility] (DEFAULT) [address] [place] [address] CBC,PLATELETSon 09-11-2023 Hematocrit (Bld) [Volume fraction] 25.8 % Low 34.9-44.3 [facility] Comment on above: Performed By: #### T YPEC #### [facility] (DEFAULT) [address] [place] [address] Hemoglobin (Bld) [Mass/Vol] 8.5 g/dL Low 11.4-15.2 [facility] Comment on above: Performed By: #### T YPEC #### [facility] (DEFAULT) [address] [address] MCV (RBC) [Entitic vol] 90.8 fL Normal 79.6-97.7 O [facility] Comment on above: Performed By: #### T YPEC #### [facility] (DEFAULT) [address] [place] [address] 45040 Mean Cell Hgb 29.9 pg Normal 25.9-33.9 [facility] Comment on above: Performed By: #### T YPEC #### [facility] (DEFAULT) [address] [place] [address] 14271 Mean Cell Hgb Conc 32.9 g/dL Normal 31.4-35.9 [facility] Comment on above: Performed By: #### T YPEC #### [facility] (DEFAULT) [address] [place] [address] 20946 Platelet mean volume (Bld) [Entitic vol] 11.8 fL Normal 8.5-12.2 [facility] Comment on above: Performed By: #### T YPEC #### [facility] (DEFAULT) [address] [place] [address] 84955 Platelets (Bld) [#/Vol] 125 10*3/uL Low 150-393 [facility] Comment on above: Performed By: #### T YPEC #### [facility] (DEFAULT) [address] [place] [address] 35550 RBC (Bld) [#/Vol] 2.84 10*6/uL Low 3.91-5.04 [facility] Comment on above: Performed By: #### T YPEC #### [facility] (DEFAULT) [address] [place] [address] 30095 RBC Distribution 16.4 % High 10.8-14.9 [facility] Comment on above: Performed By: #### T YPEC #### [facility] (DEFAULT) [address] [place] [address] 12195 WBC (Bld) [#/Vol] 12.12 10*3/uL High 3.99-11.19 [facility] Comment on above: Performed By: #### T YPEC #### [facility] (DEFAULT) [address] [place] [address] 30984 Erythrocyte distribution width (RBC) [Ratio] 16.4 % High 10.8 - 14.9 % [facility] Hematocrit (Bld) [Volume fraction] 25.8 % Low 34.9 - 44.3 % [facility] Hemoglobin (Bld) [Mass/Vol] 8.5 g/dL Low 11.4 - 15.2 g/dL [facility] Interpretation and review of laboratory results Abnormal [facility] MCH (RBC) [Entitic mass] 29.9 pg 25.9 - 33.9 pg [facility] MCHC (RBC) [Mass/Vol] 32.9 g/dL 31.4 - 35.9 g/dL [facility] MCV (RBC) [Entitic vol] 90.8 fL 79.6 - 97.7 fL [facility] Platelet mean volume (Bld) [Entitic vol] 11.8 fL 8.5 - 12.2 fL [facility] Platelets (Bld) [#/Vol] 125 10*3/uL Low 150 - 393 K/uL [facility] RBC (Bld) [#/Vol] 2.84 10*6/uL Low [facility] WBC (Bld) [#/Vol] 12.12 10*3/uL High 3.99 - 11 .19 K/uL [facility] CHEM 7 (LYTES,BUN,CREA,GLUC) on 09-11-2023 Anion gap [Moles/Vol] 13 mmol/L Normal 7-17 [facility] Comment on above: Performed By: #### B FLD #### [facility] (DEFAULT) [address] [place] [address]36 Chloride [Moles/Vol] 99 mmol/L Normal 98-108 [facility] Comment on above: Performed By: #### B FLD #### [facility] (DEFAULT) [address] [place] [address] CO2 [Moles/Vol] 25 mmol/L Normal 21-31 [facility] Comment on above: Performed By: #### B FLD #### [facility] (DEFAULT) [address] [place] [address] 00625 Creatinine [Mass/Vol] 3.24 mg/dL High 0.50-1.20 [facility] Comment on above: Performed By: #### B FLD #### [facility] (DEFAULT) [address] [place] [address] 30091 GFR/1.73 sq M.predicted among non-blacks MDRD (S/P/Bld) [Vol rate/Area] 14 mL/min/{1.73_m2} Low >=60 [facility] Comment on above: Result Comment: Repo rted eGFR is based on the CKD-EPI 2020 equation using creatinine, age, and sex. Performed By: #### B FLD #### U [facility] [place] [facility] (DEFAULT) [address] [place] [address] 83418 Glucose [Mass/Vol] 103 mg/dL High 70-99 [facility] Comment on above: Performed By: #### B FLD #### [facility] [place] [facility] (DEFAULT) [address] [place] [address] Osmolality [Osmolality] 290 mosm/kg Normal 278-305 [facility] Comment on above: Performed By: #### B FLD #### [facility] [place] [facility] (DEFAULT) [address] [place] [address] 52912 Potassium [Moles/Vol] 4.6 mmol/L Normal 3.5-5.0 [facility] Comment on above: Performed By: #### B FLD #### [facility] (DEFAULT) [address] [place] [address] 33876 Sodium [Moles/Vol] 132 mmol/L Low 135-145 [facility] Comment on above: Performed By: #### B FLD #### [facility] (DEFAULT) [address] [place] [address] 44790 Urea nitrogen [Mass/Vol] 42 mg/dL High 7-25 [facility] Comment on above: Performed By: #### B FLD #### [facility] (DEFAULT) [address] [place] [address] 77549 Urea nitrogen/Creatinine [Mass ratio] 13 mg/mg Normal [facility] Comment on above: Performed By: #### B FLD #### [facility] (DEFAULT) [address] [place] [address] 57330 Anion gap [Moles/Vol] 13 mmol/L 7 - 17 mmol/L [facility] Chloride [Moles/Vol] 99 mmol/L 98 - 10 8 mmol/L [facility] CO2 [Moles/Vol] 25 mmol/L 21 - 31 mmol/L [facility] Creatinine [Mass/Vol] 3.24 mg/dL High 0.50 - 1.20 mg/dL [facility] eGFR, CKD-EPI, Female 14 Low - PINF [facility] Glucose [Mass/Vol] 103 mg/dL High 70 - 99 mg/dL [facility] Interpretation and review of laboratory results Abnormal [facility] Osmolality Calc [Osmolality] 290 [facility] Potassium [Moles/Vol] 4.6 mmol/L 3.5 - 5.0 mmol/L [facility] Sodium [Moles/Vol] 132 mmol/L Low 135 - 145 mmol/L [facility] Urea nitrogen [Mass/Vol] 42 mg/dL High 7 - 25 mg/dL [facility] Urea nitrogen/Creatinine [Mass ratio] 13 mg/mg [facility] CSF DIFFERENTIALon 4 Basophils (Csf) 0 % Normal [facility] Comment on above: Result Comment: The reference range has not been established for this parameter for this fluid. Clinical correlation is recommended. Performed By: #### L AB951 ####[facility] (DEFAULT)[address] [place] [address] Cells Counted (CSF) 32 Normal [facility] Comment on above: Performed By: #### L AB951 ####[facility] (DEFAULT)[address] [place] [address] Comment (Csf) There is no evidence of metastatic neoplasm. No unequivocal organisms seen. There is no evidence of an inflammatory response. Correlation with gram stain and culture recommended. Normal [facility] Comment on above: Performed By: #### L AB951 ####[facility] (DEFAULT)[address] [place] [address] Differential Reviewed By Quinten Mccoy MD [facility] Comment on above: Performed By: #### L AB951 ####[facility] (DEFAULT)[address] [place] [address] Eosinophils (Csf) 0 % Normal [facility] Comment on above: Result Comment: The reference range has not been established for this parameter for this fluid. Clinical correlation is recommended. Performed By: #### L AB951 ####[facility] (DEFAULT)[address] [place] [address] 11380 Lymphocytes (Csf) 38 % Low 40-80 [facility] Comment on above: Performed By: #### L AB951 ####[facility] (DEFAULT)[address] [place] [address] 02353 Monocytes/Macrophages, CSF 50 % High 15-45 [facility] Comment on above: Performed By: #### L AB951 ####[facility] (DEFAULT)[address] [place] [address] 88739 Neutrophils (Csf) 13 % High <=6 [facility] Comment on above: Performed By: #### L AB951 ####[facility] (DEFAULT)[address] [place] [address] 09142 CSF FLUID COUNT ONLYon 09-10 CSF Tube Number CSF TUBE 4 Normal [facility] Comment on above: Performed By: #### C SFLC #### [facility] (DEFAULT) [address] [place] [address] Performed By: #### L AB951 ####[facility] (DEFAULT)[address] [place] [address] 17053 Gross Appearance (Csf) Normal [facility] Comment on above: Result Comment: Providence rless Clear Performed By: #### C SFLC #### [facility] (DEFAULT) [address] [place] [address] 52837 RBC (Bld) [#/Vol] 0.76868 10*6/uL High <3 [facility] Comment on above: Performed By: #### C SFLC #### [facility] (DEFAULT) [address] [place] [address] 99458 Supernatant (Csf) Not Indicated Normal [facility] Comment on above: Performed By: #### C SFLC #### [facility] (DEFAULT) [address] [place] [address] Total Nucleated Cells (TNC CSF) < Normal <6 [facility] Comment on above: Performed By: #### C SFLC #### [facility] (DEFAULT) [address] [place] [address] CSF FLUID COUNT ONLYOrdered By: Ema Valente on 09-11-2023 Appearance (Body fld) [facility] Appearance (Body fld) Not Indicated [facility] Interpretation and review of laboratory results Abnormal [facility] RBC Manual cnt (CSF) [#/Vol] 21 /uL High NINF - 3 /uL [facility] Tube number Nom (CSF) [ID] CSF TUBE 4 [facility] WBC Manual cnt (CSF) [#/Vol] /uL NINF - 6 /uL [facility] CSF TECH DIFFERENTIALOrdered By: Kirk Herrera on 09-11-2023 [facility] ELECTRONIC DIFFon 09-11-2023 Basophils (Bld) [#/Vol] K/uL 0.00 - 0.15 K/uL [facility] Basophils/100 WBC (Bld) 0.1 % [facility] Eosinophils (Bld) [#/Vol] K/uL 0.00 - 0.42 K/uL [facility] Eosinophils/100 WBC (Bld) 0.0 % [facility] Immature granulocytes (Bld) [#/Vol] 0.26 10*3/uL High NINF - 0.08 K/uL [facility] Immature granulocytes/100 WBC (Bld) 2.0 % [facility] Interpretation and review of laboratory results Abnormal [facility] Lymphocytes (Bld) [#/Vol] 1.75 10*3/uL 1.16 - 3.51 K/uL [facility] Lymphocytes/100 WBC (Bld) 13.8 % [facility] Monocytes (Bld) [#/Vol] 0.69 10*3/uL 0.22 - 0.87 K/uL [facility] Monocytes/100 WBC (Bld) 5.4 % [facility] Neutrophils (Bld) [#/Vol] 9.99 10*3/uL High 1.64 - 7.28 K/uL [facility] Nucleated RBC/100 WBC (Bld) [Ratio] 0.0 % NINF [facility] Segmented neutrophils/100 WBC (Bld) 78.7 % [facility] Abs Baso Auto < Normal 0.00-0.15 [facility] Comment on above: Performed By: #### T YPEC #### [facility] (DEFAULT) [address] [address] Abs Eos Auto < Normal 0.00-0.42 [facility] Comment on above: Performed By: #### T YPEC #### [facility] (DEFAULT) [address] [address] Basophils/100 WBC (Bld) 0.1 % Normal [facility] Comment on above: Performed By: #### T YPEC #### [facility] (DEFAULT) [address] [address] Eosinophils/100 WBC (Bld) 0.0 % Normal [facility] Comment on above: Performed By: #### T YPEC #### [facility] (DEFAULT) [address] [address] Immature Grans % 2.0 % Normal [facility] Comment on above: Performed By: #### T YPEC #### [facility] (DEFAULT) [address] [address] Immature Grans Absolute 0.26 K/uL High <=0.08 [facility] Comment on above: Performed By: #### T YPEC #### [facility] (DEFAULT) [address] [address] Lymphocytes (Bld) [#/Vol] 1.75 10*3/uL Normal 1.16-3.51 [facility] Comment on above: Performed By: #### T YPEC #### [facility] (DEFAULT) [address] [address] Lymphocytes/100 WBC (Bld) 13.8 % Normal [facility] Comment on above: Performed By: #### T YPEC #### [facility] (DEFAULT) [address] [address] Monocytes (Bld) [#/Vol] 0.69 10*3/uL Normal 0.22-0.87 [facility] Comment on above: Performed By: #### T YPEC #### [facility] (DEFAULT) [address] [address] Monocytes/100 WBC (Bld) 5.4 % Normal [facility] Comment on above: Performed By: #### T YPEC #### [facility] (DEFAULT) [address] [address] Nucleated RBC 0.0 /100 WBC Normal <=0.2 [facility] Comment on above: Performed By: #### T YPEC #### [facility] (DEFAULT) [address] [address] Segs + Bands Auto 78.7 % Normal [facility] Comment on above: Performed By: #### T YPEC #### [facility] (DEFAULT) [address] [address] Segs + Bands,Absolute Auto 9.99 K/uL High 1.64-7.28 [facility] Comment on above: Performed By: #### T YPEC #### [facility] (DEFAULT) [address] [address] ENCEPHALOPATHY, AUTOIMMUNE E VALUATION, CSFon 09-11-2023 AGNA-1,CSF Negative Normal Negative [facility] Comment on above: Result Comment: ADDITIONAL INFORMATION This test was developed and its performance characteristics determined by [facility] in a manner consistent with CLIA requirements. This test has not been cleared or approved by the U.S. Food and Drug Administration. Performed By: #### Y ENCEC ####[facility] [address] AMPA-R AB CBA, CSF Negative Normal Negative [facility] Comment on above: Result Comment: ADDITIONAL INFORMATION This test was developed and its performance characteristics determined by [facility] in a manner consistent with CLIA requirements. This test has not been cleared or approved by the U.S. Food and Drug Administration. Performed By: #### Y ENCEC ####[facility] (DEFAULT)[address] [place] [address] AMPHIPHYSIN AB, CSF Negative Normal Negative [facility] Comment on above: Result Comment: ADDITIONAL INFORMATION This test was developed and its performance characteristics determined by [facility] in a manner consistent with CLIA requirements. This test has not been cleared or approved by the U.S. Food and Drug Administration. Performed By: #### Y ENCEC ####[facility] (DEFAULT)[address] [address] JEREMY-1, CSF Negative Normal Negative [facility] Comment on above: Result Comment: ADDITIONAL INFORMATION This test was developed and its performance characteristics determined by [facility] in a manner consistent with CLIA requirements. This test has not been cleared or approved by the U.S. Food and Drug Administration. Performed By: #### Y ENCEC ####[facility] [place] [facility] (DEFAULT)[address] [place] [address] JEREMY-2,CSF Negative Normal Negative [facility] Comment on above: Result Comment: ADDITIONAL INFORMATION This test was developed and its performance characteristics determined by [facility] in a manner consistent with CLIA requirements. This test has not been cleared or approved by the U.S. Food and Drug Administration. Performed By: #### Y ENCEC ####[facility] [place] [facility] (DEFAULT)[address] [place] [address] JEREMY-3,CSF Negative Normal Negative [facility] Comment on above: Result Comment: ADDITIONAL INFORMATION This test was developed and its performance characteristics determined by [facility] in a manner consistent with CLIA requirements. This test has not been cleared or approved by the U.S. Food and Drug Administration. Performed By: #### Y ENCEC ####[facility] [place] [facility] (DEFAULT)[address] [place] [address], [place] [address] CASPR2-IgG CBA, CSF Negative Normal Negative [facility] Comment on above: Result Comment: ADDITIONAL INFORMATION This test was developed and its performance characteristics determined by [facility] in a manner consistent with CLIA requirements. This test has not been cleared or approved by the U.S. Food and Drug Administration. Performed By: #### Y ENCEC ####[facility] (DEFAULT)[address] [place] [address], [place] [address] CRMP-[id number],CSF Negative Normal Negative [facility] Comment on above: Result Comment: ADDITIONAL INFORMATION This test was developed and its performance characteristics determined by [facility] in a manner consistent with CLIA requirements. This test has not been cleared or approved by the U.S. Food and Drug Administration. Performed By: #### Y ENCEC ####[facility] [place] [facility] (DEFAULT)[address] [place] [address] DPPX AB IFA, CSF Negative Normal Negative [facility] Comment on above: Result Comment: ADDITIONAL INFORMATION This test was developed and its performance characteristics determined by [facility] in a manner consistent with CLIA requirements. This test has not been cleared or approved by the U.S. Food and Drug Administration. Performed By: #### Y ENCEC ####[facility] (DEFAULT)[address] [place] [address] Encephalopathy, Interpretation, CSF SEE COMMENTS Normal [facility] Comment on above: Result Comment: No i nformative autoantibodies were detected in this evaluation. However, a negative result does not exclude autoimmune encephalopathy, idiopathic or paraneoplastic. Sensitivity and specificity of antibody testing are enhanced by testing both serum and CSF. Performed By: #### Y ENCEC ####[facility] [place] [facility] (DEFAULT)[address] [place] [address] KRUNAL-B-R AB CBA, CSF Negative Normal Negative [facility] Comment on above: Result Comment: ADDITIONAL INFORMATION This test was developed and its performance characteristics determined by [facility] in a manner consistent with CLIA requirements. This test has not been cleared or approved by the U.S. Food and Drug Administration. Performed By: #### Y ENCEC ####[facility] (DEFAULT)[address] [address] GAD65 AB ASSAY, CSF 0.00 nmol/L Normal <= 0.02 [facility] Comment on above: Result Comment: ADDITIONAL INFORMATION This test was developed and its performance characteristics determined by [facility] in a manner consistent with CLIA requirements. This test has not been cleared or approved by the U.S. Food and Drug Administration. Performed By: #### Y ENCEC ####[facility] (DEFAULT)[address] [place] [address], [place] [address] GFAP IFA, CSF Negative Normal Negative [facility] Comment on above: Result Comment: ADDITIONAL INFORMATION This test was developed and its performance characteristics determined by [facility] in a manner consistent with CLIA requirements. This test has not been cleared or approved by the U.S. Food and Drug Administration. Performed By: #### Y ENCEC ####[facility] (DEFAULT)[address] [place] [address], [place] [address] IFA Notes None. Normal [facility] Comment on above: Performed By: #### Y ENCEC ####[facility] (DEFAULT)[address] [place] [address], [place] [address] IgLON5 IFA, CSF Negative Normal Negative [facility] Comment on above: Result Comment: ADDITIONAL INFORMATION This test was developed and its performance characteristics determined by [facility] in a manner consistent with CLIA requirements. This test has not been cleared or approved by the U.S. Food and Drug Administration. Performed By: #### Y ENCEC ####[facility] (DEFAULT)[address] [place] [address], [place] [address] LGI1-IgG,CBA,csf Negative Normal Negative [facility] Comment on above: Result Comment: ADDITIONAL INFORMATION This test was developed and its performance characteristics determined by [facility] in a manner consistent with CLIA requirements. This test has not been cleared or approved by the U.S. Food and Drug Administration. Performed By: #### Y ENCEC ####[facility] [place] [facility] (DEFAULT)[address] [place] [address] MGLUR1 AB, IFA, CSF Negative Normal Negative [facility] Comment on above: Result Comment: ADDITIONAL INFORMATION This test was developed and its performance characteristics determined by [facility] in a manner consistent with CLIA requirements. This test has not been cleared or approved by the U.S. Food and Drug Administration. Performed By: #### Y ENCEC ####[facility] [place] [facility] (DEFAULT)[address] [place] [address] Neurochondrin IFA, CSF Negative Normal Negative [facility] Comment on above: Result Comment: ADDITIONAL INFORMATION This test was developed and its performance characteristics determined by [facility] in a manner consistent with CLIA requirements. This test has not been cleared or approved by the U.S. Food and Drug Administration. Performed By: #### Y ENCEC ####[facility] [place] [facility] (DEFAULT)[address] [address] NIF IFA, CSF Negative Normal Negative [facility] Comment on above: Result Comment: ADDITIONAL INFORMATION This test was developed and its performance characteristics determined by [facility] in a manner consistent with CLIA requirements. This test has not been cleared or approved by the U.S. Food and Drug Administration. Performed By: #### Y ENCEC ####[facility] [place] [facility] (DEFAULT)[address] [place] [address] NMDA-R AB CBA, CSF Negative Normal Negative [facility] Comment on above: Result Comment: ADDITIONAL INFORMATION This test was developed and its performance characteristics determined by [facility] in a manner consistent with CLIA requirements. This test has not been cleared or approved by the U.S. Food and Drug Administration. Performed By: #### Y ENCEC ####[facility] [place] [facility] (DEFAULT)[address] [place] [address], [place] [address] SEO SPECIALIST-1,CSF Negative Normal Negative [facility] Comment on above: Result Comment: ADDITIONAL INFORMATION This test was developed and its performance characteristics determined by [facility] in a manner consistent with CLIA requirements. This test has not been cleared or approved by the U.S. Food and Drug Administration. Performed By: #### Y ENCEC ####[facility] [place] [facility] (DEFAULT)[address] [place] [address], [place] [address] SEO SPECIALIST-2,CSF Negative Normal Negative [facility] Comment on above: Result Comment: ADDITIONAL INFORMATION This test was developed and its performance characteristics determined by [facility] in a manner consistent with CLIA requirements. This test has not been cleared or approved by the U.S. Food and Drug Administration. Performed By: #### Y ENCEC ####[facility] [place] [facility] (DEFAULT)[address] [place] [address] SEO SPECIALIST-TR,CSF Negative Normal Negative [facility] Comment on above: Result Comment: ADDITIONAL INFORMATION This test was developed and its performance characteristics determined by [facility] in a manner consistent with CLIA requirements. This test has not been cleared or approved by the U.S. Food and Drug Administration. Performed By: #### Y ENCEC ####[facility] [place] [facility] (DEFAULT)[address] [place] [address] Septin-7 IFA, CSF Negative Normal Negative [facility] Comment on above: Result Comment: ADDITIONAL INFORMATION This test was developed and its performance characteristics determined by [facility] in a manner consistent with CLIA requirements. This test has not been cleared or approved by the U.S. Food and Drug Administration. Test Performed by: [place] [address] [place]: Alfredito Rice M.D. Ph.D.; CLIA# [id number] Performed By: #### Y ENCEC ####[facility] [place] [facility] (DEFAULT)[address] [place] [address] ENCEPHALOPATHY, AUTOIMMUNE E VALUATION, SERUMon 09-11-2023 AGNA-1 IMMUNOBLOT, S Negative Normal Negative [facility] Comment on above: Result Comment: ADDITIONAL INFORMATION This test was developed and its performance characteristics determined by [facility] in a manner consistent with CLIA requirements. This test has not been cleared or approved by the U.S. Food and Drug Administration. Performed By: #### C SFLC #### [facility] [place] [facility] (DEFAULT) [address] [address] AMPA-R AB CBA, Serum Negative Normal Negative [facility] Comment on above: Result Comment: ADDITIONAL INFORMATION This test was developed and its performance characteristics determined by [facility] in a manner consistent with CLIA requirements. This test has not been cleared or approved by the U.S. Food and Drug Administration. Performed By: #### C SFLC #### [facility] [place] [facility] (DEFAULT) [address] [place] [address] AMPHIPHYSIN ANTIBODY Negative Normal Negative [facility] Comment on above: Result Comment: ADDITIONAL INFORMATION This test was developed and its performance characteristics determined by [facility] in a manner consistent with CLIA requirements. This test has not been cleared or approved by the U.S. Food and Drug Administration. Performed By: #### C SFLC #### [facility] (DEFAULT) [address] [place] [address] JEREMY-3 Negative Normal Negative [facility] Comment on above: Result Comment: ADDITIONAL INFORMATION This test was developed and its performance characteristics determined by [facility] in a manner consistent with CLIA requirements. This test has not been cleared or approved by the U.S. Food and Drug Administration. Performed By: #### C SFLC #### [facility] [place] [facility] (DEFAULT) [address] [place] [address] ANTI-HU (JEREMY-1) AB Negative Normal Negative [facility] Comment on above: Result Comment: ADDITIONAL INFORMATION This test was developed and its performance characteristics determined by [facility] in a manner consistent with CLIA requirements. This test has not been cleared or approved by the U.S. Food and Drug Administration. Performed By: #### C SFLC #### [facility] [place] [facility] (DEFAULT) [address] [place] [address] ANTI-RI (JEREMY-2) AB Negative Normal Negative [facility] Comment on above: Result Comment: ADDITIONAL INFORMATION This test was developed and its performance characteristics determined by [facility] in a manner consistent with CLIA requirements. This test has not been cleared or approved by the U.S. Food and Drug Administration. Performed By: #### C SFLC #### [facility] [place] [facility] (DEFAULT) [address] [place] [address] CASPR2-IgG CBA, S Negative Normal Negative [facility] Comment on above: Result Comment: ADDITIONAL INFORMATION This test was developed and its performance characteristics determined by [facility] in a manner consistent with CLIA requirements. This test has not been cleared or approved by the U.S. Food and Drug Administration. Performed By: #### C SFLC #### [facility] [place] [facility] (DEFAULT) [address] [place] [address] CRMP 5 IGG Negative Normal Negative [facility] Comment on above: Result Comment: ADDITIONAL INFORMATION This test was developed and its performance characteristics determined by [facility] in a manner consistent with CLIA requirements. This test has not been cleared or approved by the U.S. Food and Drug Administration. Performed By: #### C SFLC #### [facility] (DEFAULT) [address] [place] [address] DPPX AB IFA, S Negative Normal Negative [facility] Comment on above: Result Comment: ADDITIONAL INFORMATION This test was developed and its performance characteristics determined by [facility] in a manner consistent with CLIA requirements. This test has not been cleared or approved by the U.S. Food and Drug Administration. Performed By: #### C SFLC #### [facility] [place] [facility] (DEFAULT) [address] [place] [address] Encephalopathy, Interpretation, serum SEE COMMENTS Normal [facility] Comment on above: Result Comment: The following antibody was identified: Glutamic Acid Decarboxylase. * This profile is consistent with predisposition to thyrogastric disorders, including thyroiditis, pernicious anemia, and type 1 diabetes, but has low specificity for autoimmune encephalopathy. GAD65 antibody values less than 2.00 nM have a lower positive predictive value for neurological autoimmunity than values of 20.0 nM and higher. * Performed By: #### C SFLC #### [facility] [place] [facility] (DEFAULT) [address] [place] [address] KRUNAL-B-R AB CBA, SERUM Negative Normal Negative [facility] Comment on above: Result Comment: ADDITIONAL INFORMATION This test was developed and its performance characteristics determined by [facility] in a manner consistent with CLIA requirements. This test has not been cleared or approved by the U.S. Food and Drug Administration. Performed By: #### C SFLC #### [facility] [place] [facility] (DEFAULT) [address] [address] GAD65 Antibody 0.06 nmol/L High <= 0.02 [facility] Comment on above: Result Comment: ADDITIONAL INFORMATION This test was developed and its performance characteristics determined by [facility] in a manner consistent with CLIA requirements. This test has not been cleared or approved by the U.S. Food and Drug Administration. Performed By: #### C SFLC #### [facility] [place] [facility] (DEFAULT) [address] [address] GFAP IFA, S Negative Normal Negative [facility] Comment on above: Result Comment: ADDITIONAL INFORMATION This test was developed and its performance characteristics determined by [facility] in a manner consistent with CLIA requirements. This test has not been cleared or approved by the U.S. Food and Drug Administration. Performed By: #### C SFLC #### [facility] [address] [address] IFA Notes None. Normal [facility] Comment on above: Performed By: #### C SFLC #### [facility] (DEFAULT) [address] [address] IGLON5 IFA, S Negative Normal Negative [facility] Comment on above: Result Comment: ADDITIONAL INFORMATION This test was developed and its performance characteristics determined by [facility] in a manner consistent with CLIA requirements. This test has not been cleared or approved by the U.S. Food and Drug Administration. Performed By: #### C SFLC #### [facility] (DEFAULT) [address] [place] [address] LGI1-IgG CBA, S Negative Normal Negative [facility] Comment on above: Result Comment: ADDITIONAL INFORMATION This test was developed and its performance characteristics determined by [facility] in a manner consistent with CLIA requirements. This test has not been cleared or approved by the U.S. Food and Drug Administration. Performed By: #### C SFLC #### [facility] (DEFAULT) [address] [address] MGLUR1 AB, IFA, S Negative Normal Negative [facility] Comment on above: Result Comment: ADDITIONAL INFORMATION This test was developed and its performance characteristics determined by [facility] in a manner consistent with CLIA requirements. This test has not been cleared or approved by the U.S. Food and Drug Administration. Performed By: #### C SFLC #### [facility] [place] [facility] (DEFAULT) [address] [place] [address] Neurochondrin IFA, S Negative Normal Negative [facility] Comment on above: Result Comment: ADDITIONAL INFORMATION This test was developed and its performance characteristics determined by [facility] in a manner consistent with CLIA requirements. This test has not been cleared or approved by the U.S. Food and Drug Administration. Performed By: #### C SFLC #### [facility] (DEFAULT) [address] [place] [address] NIF IFA, S Negative Normal Negative [facility] Comment on above: Result Comment: ADDITIONAL INFORMATION This test was developed and its performance characteristics determined by [facility] in a manner consistent with CLIA requirements. This test has not been cleared or approved by the U.S. Food and Drug Administration. Performed By: #### C SFLC #### [facility] [place] [facility] (DEFAULT) [address] [place] [address] NMDA-R AB CBA, SERUM Negative Normal Negative [facility] Comment on above: Result Comment: ADDITIONAL INFORMATION This test was developed and its performance characteristics determined by [facility] in a manner consistent with CLIA requirements. This test has not been cleared or approved by the U.S. Food and Drug Administration. Performed By: #### C SFLC #### [facility] [address] [place] [address] SEO SPECIALIST-1, PURKINJE CELL AB, TYPE 1 Negative Normal Negative [facility] Comment on above: Result Comment: ADDITIONAL INFORMATION This test was developed and its performance characteristics determined by [facility] in a manner consistent with CLIA requirements. This test has not been cleared or approved by the U.S. Food and Drug Administration. Performed By: #### C SFLC #### [facility] (DEFAULT) [address] [place] [address] SEO SPECIALIST-2 Negative Normal Negative [facility] Comment on above: Result Comment: ADDITIONAL INFORMATION This test was developed and its performance characteristics determined by [facility] in a manner consistent with CLIA requirements. This test has not been cleared or approved by the U.S. Food and Drug Administration. Performed By: #### C SFLC #### [facility] (DEFAULT) [address] [place] [address] SEO SPECIALIST-TR, PURKINJE CELL, TYPE TR Negative Normal Negative [facility] Comment on above: Result Comment: ADDITIONAL INFORMATION This test was developed and its performance characteristics determined by [facility] in a manner consistent with CLIA requirements. This test has not been cleared or approved by the U.S. Food and Drug Administration. Performed By: #### C SFLC #### [facility] (DEFAULT) [address] [place] [address] Septin-7 IFA, S Negative Normal Negative [facility] Comment on above: Result Comment: ADDITIONAL INFORMATION This test was developed and its performance characteristics determined by [facility] in a manner consistent with CLIA requirements. This test has not been cleared or approved by the U.S. Food and Drug Administration. Test Performed by: [address] [address] [place]: Alfredito Rice M.D. Ph.D.; CLIA# [id number] Performed By: #### C SFLC #### [facility] (DEFAULT) [address] [address] GENERAL PROCEDUREon 09-11-19 [facility] Radiology Study observation (narrative) [facility] GLUCOSE POCon 09-11-2023 Glucose [Mass/Vol] 160 mg/dL High 70 - 99 mg/dL [facility] Glucose [Mass/Vol] 125 mg/dL High 70 - 99 mg/dL [facility] Glucose [Mass/Vol] 94 mg/dL 70 - 99 mg/dL [facility] POC Sample Type CAPBL [facility] HEMOGLOBIN A1Con 09-11-2023 Average glucose Estimated from glycated hemoglobin (Bld) [Mass/Vol] 117 mg/dL [facility] HbA1c (Bld) [Mass fraction] 5.7 % High 4.7 - 5.6 % [facility] Interpretation and review of laboratory results Abnormal [facility] Glucose [Mass/Vol] 117 mg/dL Normal [facility] Comment on above: Performed By: #### T YPEC #### [facility] (DEFAULT) [address] [place] [address] Hemoglobin A1C HPLC 5.7 % High 4.7-5.6 [facility] Comment on above: Performed By: #### T YPEC #### [facility] (DEFAULT) [address] [place] [address] HEPATIC FUNCTION PANELon Albumin [Mass/Vol] 2.7 g/dL Low 3.5 - 5.0 g/dL [facility] ALP [Catalytic activity/Vol] 38 U/L 32 - 126 U/L [facility] ALT [Catalytic activity/Vol] 7 U/L Low 9 - 48 U/L [facility] AST [Catalytic activity/Vol] 11 U/L 10 - 39 U/L [facility] Bilirubin [Mass/Vol] 0.3 mg/dL NINF - 1.5 mg/dL [facility] Bilirubin.direct [Mass/Vol] mg/dL NINF - 0.3 mg/dL [facility] Interpretation and review of laboratory results Abnormal [facility] Protein [Mass/Vol] 4.5 g/dL Low 6.4 - 8.3 g/dL [facility] Albumin [Mass/Vol] 2.7 g/dL Low 3.5-5.0 [facility] Comment on above: Performed By: #### C SFLC #### [facility] (DEFAULT) [address] [place] [address] ALP [Catalytic activity/Vol] 38 U/L Normal 32-126 [facility] Comment on above: Performed By: #### C SFLC #### [facility] (DEFAULT) [address] [place] [address] ALT [Catalytic activity/Vol] 7 U/L Low 9-48 [facility] Comment on above: Performed By: #### C SFLC #### [facility] (DEFAULT) [address] [place] [address] AST [Catalytic activity/Vol] 11 U/L Normal 10-39 [facility] Comment on above: Performed By: #### C SFLC #### [facility] (DEFAULT) [address] [address] Bilirubin [Mass/Vol] 0.3 mg/dL Normal <1.5 [facility] Comment on above: Performed By: #### C SFLC #### [facility] (DEFAULT) [address] [place] [address] Bilirubin Direct < Normal <0.3 [facility] Comment on above: Performed By: #### C SFLC #### [facility] (DEFAULT) [address] [place] [phone] Protein [Mass/Vol] 4.5 g/dL Low 6.4-8.3 [facility] Comment on above: Performed By: #### C SFLC #### [facility] (DEFAULT) [address] [place] [address] MAGNESIUMon 09-11-2023 Magnesium [Mass/Vol] 1.6 mg/dL Normal 1.6-2.6 [facility] Comment on above: Performed By: #### B FLD #### [facility] (DEFAULT) [address] [address] Interpretation and review of laboratory results Normal [facility] Magnesium [Mass/Vol] 1.6 mg/dL 1.6 - 2 .6 mg/dL [facility] MENINGITIS/ENCEPHALITIS PANE L, CSFOrdered By: Ema oChen on 09-11-2023 C. gattii+neoformans DNA ALBIN+non-probe Ql (CSF) Not detected Not Detected [facility] CMV DNA ALBIN+non-probe Ql (CSF) Not detected Not Detected [facility] E. coli K1 DNA ALBIN+non-probe Ql (CSF) Not detected Not Detected [facility] Enterovirus RNA ALBIN+non-probe Ql (CSF) Not detected Not Detected [facility] H. influenzae DNA ALBIN+non-probe Ql (CSF) Not detected Not Detected [facility] HHV 6 DNA ALBIN+non-probe Ql (CSF) Not detected Not Detected [facility] HSV 1 DNA ALBIN+non-probe Ql (CSF) Not detected Not Detected [facility] HSV 2 DNA ALBIN+non-probe Ql (CSF) Not detected Not Detected [facility] Interpretation and review of laboratory results Normal [facility] L. monocytogenes DNA ALBIN+non-probe Ql (CSF) Not detected Not Detected [facility] N. meningitidis DNA ALBIN+non-probe Ql (CSF) Not detected Not Detected [facility] Parechovirus A RNA ALBIN+non-probe Ql (CSF) Not detected Not Detected [facility] S. agalactiae DNA ALBIN+non-probe Ql (CSF) Not detected Not Detected [facility] S. pneumoniae DNA ALBIN+non-probe Ql (CSF) Not detected Not Detected [facility] VZV DNA ALBIN+non-probe Ql (CSF) Not detected Not Detected [facility] MENINGITIS/ENCEPHALITIS PANE L, CSFon 09-11-2023 CMV DNA Not detected Normal Not Detected [facility] Comment on above: Order Comment: A neg ative result does not exclude the possibility of DRAPERY SUPERVISOR infection and should not be used as the sole basis for diagnosis, treatment, or other management decisions. Negative results may occur when the concentration of organism(s), virus(es), or yeast in the specimen is below the limit of detection. The ME panel does not distinguish between latent and active herpesvirus infections(CMV, HHV-6). This test was performed using a film array method for the detection of: Escherichia coli K1, Haemophilus influenza, Listeria monocytogenes, Neisseria meningitidis, Streptococcus agalactiae, Streptococcus pneumoniae, Cytomegalovirus, Enterovirus, Herpes Simplex virus 1 and 2, Human Herpesvirus 6, Human parechovirus, Varicella zoster virus, and Cryptococcus neoformans/yudy. Performed By: #### C [facility] ####[facility] (DEFAULT)[address] [place] [address] Cryptococcus Yudy/Neoformans DNA Not detected Normal Not Detected [facility] Comment on above: Order Comment: A neg ative result does not exclude the possibility of DRAPERY SUPERVISOR infection and should not be used as the sole basis for diagnosis, treatment, or other management decisions. Negative results may occur when the concentration of organism(s), virus(es), or yeast in the specimen is below the limit of detection. The ME panel does not distinguish between latent and active herpesvirus infections(CMV, HHV-6). This test was performed using a film array method for the detection of: Escherichia coli K1, Haemophilus influenza, Listeria monocytogenes, Neisseria meningitidis, Streptococcus agalactiae, Streptococcus pneumoniae, Cytomegalovirus, Enterovirus, Herpes Simplex virus 1 and 2, Human Herpesvirus 6, Human parechovirus, Varicella zoster virus, and Cryptococcus neoformans/yudy. Performed By: #### C SFMEP ####[facility] (DEFAULT)[address] [address] E. Coli K1 DNA Not detected Normal Not Detected [facility] Comment on above: Order Comment: A neg ative result does not exclude the possibility of DRAPERY SUPERVISOR infection and should not be used as the sole basis for diagnosis, treatment, or other management decisions. Negative results may occur when the concentration of organism(s), virus(es), or yeast in the specimen is below the limit of detection. The ME panel does not distinguish between latent and active herpesvirus infections(CMV, HHV-6). This test was performed using a film array method for the detection of: Escherichia coli K1, Haemophilus influenza, Listeria monocytogenes, Neisseria meningitidis, Streptococcus agalactiae, Streptococcus pneumoniae, Cytomegalovirus, Enterovirus, Herpes Simplex virus 1 and 2, Human Herpesvirus 6, Human parechovirus, Varicella zoster virus, and Cryptococcus neoformans/yudy. Performed By: #### C SFMEP ####[facility] (DEFAULT)[address] [place] [phone] Enterovirus RNA Not detected Normal Not Detected [facility] Comment on above: Order Comment: A neg ative result does not exclude the possibility of DRAPERY SUPERVISOR infection and should not be used as the sole basis for diagnosis, treatment, or other management decisions. Negative results may occur when the concentration of organism(s), virus(es), or yeast in the specimen is below the limit of detection. The ME panel does not distinguish between latent and active herpesvirus infections(CMV, HHV-6). This test was performed using a film array method for the detection of: Escherichia coli K1, Haemophilus influenza, Listeria monocytogenes, Neisseria meningitidis, Streptococcus agalactiae, Streptococcus pneumoniae, Cytomegalovirus, Enterovirus, Herpes Simplex virus 1 and 2, Human Herpesvirus 6, Human parechovirus, Varicella zoster virus, and Cryptococcus neoformans/yudy. Performed By: #### C SFMEP ####[facility] (DEFAULT)[address] [place] [address], [place] [address] Haemophilus Influenza DNA Not detected Normal Not Detected [facility] Comment on above: Order Comment: A neg ative result does not exclude the possibility of DRAPERY SUPERVISOR infection and should not be used as the sole basis for diagnosis, treatment, or other management decisions. Negative results may occur when the concentration of organism(s), virus(es), or yeast in the specimen is below the limit of detection. The ME panel does not distinguish between latent and active herpesvirus infections(CMV, HHV-6). This test was performed using a film array method for the detection of: Escherichia coli K1, Haemophilus influenza, Listeria monocytogenes, Neisseria meningitidis, Streptococcus agalactiae, Streptococcus pneumoniae, Cytomegalovirus, Enterovirus, Herpes Simplex virus 1 and 2, Human Herpesvirus 6, Human parechovirus, Varicella zoster virus, and Cryptococcus neoformans/yudy. Performed By: #### C SFMEP ####[facility] (DEFAULT)[address] [place] [address] Hhv-6 DNA Not detected Normal Not Detected [facility] Comment on above: Order Comment: A neg ative result does not exclude the possibility of DRAPERY SUPERVISOR infection and should not be used as the sole basis for diagnosis, treatment, or other management decisions. Negative results may occur when the concentration of organism(s), virus(es), or yeast in the specimen is below the limit of detection. The ME panel does not distinguish between latent and active herpesvirus infections(CMV, HHV-6). This test was performed using a film array method for the detection of: Escherichia coli K1, Haemophilus influenza, Listeria monocytogenes, Neisseria meningitidis, Streptococcus agalactiae, Streptococcus pneumoniae, Cytomegalovirus, Enterovirus, Herpes Simplex virus 1 and 2, Human Herpesvirus 6, Human parechovirus, Varicella zoster virus, and Cryptococcus neoformans/yudy. Performed By: #### C SFMEP ####[facility] (DEFAULT)[address] [place] [address], [place] [address] Hsv-1 DNA Not detected Normal Not Detected [facility] Comment on above: Order Comment: A neg ative result does not exclude the possibility of DRAPERY SUPERVISOR infection and should not be used as the sole basis for diagnosis, treatment, or other management decisions. Negative results may occur when the concentration of organism(s), virus(es), or yeast in the specimen is below the limit of detection. The ME panel does not distinguish between latent and active herpesvirus infections(CMV, HHV-6). This test was performed using a film array method for the detection of: Escherichia coli K1, Haemophilus influenza, Listeria monocytogenes, Neisseria meningitidis, Streptococcus agalactiae, Streptococcus pneumoniae, Cytomegalovirus, Enterovirus, Herpes Simplex virus 1 and 2, Human Herpesvirus 6, Human parechovirus, Varicella zoster virus, and Cryptococcus neoformans/yudy. Performed By: #### C SFMEP ####[facility] (DEFAULT)[address] [place] [address] Hsv-2 DNA Not detected Normal Not Detected [facility] Comment on above: Order Comment: A neg ative result does not exclude the possibility of DRAPERY SUPERVISOR infection and should not be used as the sole basis for diagnosis, treatment, or other management decisions. Negative results may occur when the concentration of organism(s), virus(es), or yeast in the specimen is below the limit of detection. The ME panel does not distinguish between latent and active herpesvirus infections(CMV, HHV-6). This test was performed using a film array method for the detection of: Escherichia coli K1, Haemophilus influenza, Listeria monocytogenes, Neisseria meningitidis, Streptococcus agalactiae, Streptococcus pneumoniae, Cytomegalovirus, Enterovirus, Herpes Simplex virus 1 and 2, Human Herpesvirus 6, Human parechovirus, Varicella zoster virus, and Cryptococcus neoformans/yudy. Performed By: #### C SFMEP ####[facility] (DEFAULT)[address] [place] [id number] Human Parechovirus RNA Not detected Normal Not Detecte d [facility] Comment on above: Order Comment: A neg ative result does not exclude the possibility of DRAPERY SUPERVISOR infection and should not be used as the sole basis for diagnosis, treatment, or other management decisions. Negative results may occur when the concentration of organism(s), virus(es), or yeast in the specimen is below the limit of detection. The ME panel does not distinguish between latent and active herpesvirus infections(CMV, HHV-6). This test was performed using a film array method for the detection of: Escherichia coli K1, Haemophilus influenza, Listeria monocytogenes, Neisseria meningitidis, Streptococcus agalactiae, Streptococcus pneumoniae, Cytomegalovirus, Enterovirus, Herpes Simplex virus 1 and 2, Human Herpesvirus 6, Human parechovirus, Varicella zoster virus, and Cryptococcus neoformans/yudy. Performed By: #### C SFMEP ####[facility] (DEFAULT)[address] [address] Listeria Monocytogenes DNA Not detected Normal Not Detected [facility] Comment on above: Order Comment: A neg ative result does not exclude the possibility of DRAPERY SUPERVISOR infection and should not be used as the sole basis for diagnosis, treatment, or other management decisions. Negative results may occur when the concentration of organism(s), virus(es), or yeast in the specimen is below the limit of detection. The ME panel does not distinguish between latent and active herpesvirus infections(CMV, HHV-6). This test was performed using a film array method for the detection of: Escherichia coli K1, Haemophilus influenza, Listeria monocytogenes, Neisseria meningitidis, Streptococcus agalactiae, Streptococcus pneumoniae, Cytomegalovirus, Enterovirus, Herpes Simplex virus 1 and 2, Human Herpesvirus 6, Human parechovirus, Varicella zoster virus, and Cryptococcus neoformans/yudy. Performed By: #### C SFMEP ####[facility] (DEFAULT)[address] [place] [address] Neisseria Meningitidis DNA Not detected Normal Not Detected [facility] Comment on above: Order Comment: A neg ative result does not exclude the possibility of DRAPERY SUPERVISOR infection and should not be used as the sole basis for diagnosis, treatment, or other management decisions. Negative results may occur when the concentration of organism(s), virus(es), or yeast in the specimen is below the limit of detection. The ME panel does not distinguish between latent and active herpesvirus infections(CMV, HHV-6). This test was performed using a film array method for the detection of: Escherichia coli K1, Haemophilus influenza, Listeria monocytogenes, Neisseria meningitidis, Streptococcus agalactiae, Streptococcus pneumoniae, Cytomegalovirus, Enterovirus, Herpes Simplex virus 1 and 2, Human Herpesvirus 6, Human parechovirus, Varicella zoster virus, and Cryptococcus neoformans/yudy. Performed By: #### C SFMEP ####[facility] (DEFAULT)[address] [place] [address] Streptococcus Agalactiae DNA Not detected Normal Not Detected [facility] Comment on above: Order Comment: A neg ative result does not exclude the possibility of DRAPERY SUPERVISOR infection and should not be used as the sole basis for diagnosis, treatment, or other management decisions. Negative results may occur when the concentration of organism(s), virus(es), or yeast in the specimen is below the limit of detection. The ME panel does not distinguish between latent and active herpesvirus infections(CMV, HHV-6). This test was performed using a film array method for the detection of: Escherichia coli K1, Haemophilus influenza, Listeria monocytogenes, Neisseria meningitidis, Streptococcus agalactiae, Streptococcus pneumoniae, Cytomegalovirus, Enterovirus, Herpes Simplex virus 1 and 2, Human Herpesvirus 6, Human parechovirus, Varicella zoster virus, and Cryptococcus neoformans/yudy. Performed By: #### C SFMEP ####[facility] (DEFAULT)[address] [place] [address] Streptococcus Pneumoniae DNA Not detected Normal Not Detected [facility] Comment on above: Order Comment: A neg ative result does not exclude the possibility of DRAPERY SUPERVISOR infection and should not be used as the sole basis for diagnosis, treatment, or other management decisions. Negative results may occur when the concentration of organism(s), virus(es), or yeast in the specimen is below the limit of detection. The ME panel does not distinguish between latent and active herpesvirus infections(CMV, HHV-6). This test was performed using a film array method for the detection of: Escherichia coli K1, Haemophilus influenza, Listeria monocytogenes, Neisseria meningitidis, Streptococcus agalactiae, Streptococcus pneumoniae, Cytomegalovirus, Enterovirus, Herpes Simplex virus 1 and 2, Human Herpesvirus 6, Human parechovirus, Varicella zoster virus, and Cryptococcus neoformans/yudy. Performed By: #### C SFMEP ####[facility] [place] [facility] (DEFAULT)[address] [place] [address] Varicella Zoster DNA Not detected Normal Not Detected [facility] Comment on above: Order Comment: A neg ative result does not exclude the possibility of DRAPERY SUPERVISOR infection and should not be used as the sole basis for diagnosis, treatment, or other management decisions. Negative results may occur when the concentration of organism(s), virus(es), or yeast in the specimen is below the limit of detection. The ME panel does not distinguish between latent and active herpesvirus infections(CMV, HHV-6). This test was performed using a film array method for the detection of: Escherichia coli K1, Haemophilus influenza, Listeria monocytogenes, Neisseria meningitidis, Streptococcus agalactiae, Streptococcus pneumoniae, Cytomegalovirus, Enterovirus, Herpes Simplex virus 1 and 2, Human Herpesvirus 6, Human parechovirus, Varicella zoster virus, and Cryptococcus neoformans/yudy. Performed By: #### C SFMEP ####[facility] (DEFAULT)[address] [place] [address] MYELOPEROXIDASE ANTIBODIESon 09-11-2023 Myeloperoxidase Antibodies Negative Normal Negative [facility] Comment on above: Performed By: #### B FLD #### [facility] (DEFAULT) [address] [place] [address] Interpretation and review of laboratory results Normal [facility] Myeloperoxidase Ab IA Ql (S) Negative Negative [facility] No Panel Informationon 09-10 Interpretation and review of laboratory results Abnormal [facility] POC Sample Type CAPBL [facility] OLIGOCLONAL BANDS, CSF AND S ERUMon 09-11-2023 Oligoclonal Bands Interpretation, CSF 0 bands Normal <2 [facility] Comment on above: Order Comment: REQUI RES SERUM and CSF Result Comment: The oligoclonal band assay detected no unique IgG bands in the CSF. This is a negative result. Test Performed by: [facility] [address] [place] [address] [place]: Alfredito Rice M.D. Ph.D.; CLIA# [id number] Performed By: #### N ONGNFNA #### [facility] (DEFAULT) [address] [place] [address] Oligoclonal Bands, CSF 2 bands Normal [facility] Comment on above: Order Comment: REQUI RES SERUM and CSF Performed By: #### N ONGNFNA #### [facility] [place] [facility] (DEFAULT) [address] [address] Oligoclonal Bands, Serum 2 bands Normal [facility] Comment on above: Order Comment: REQUI RES SERUM and CSF Performed By: #### N ONGNFNA #### [facility] [place] [facility] (DEFAULT) [address] [address] PARANEOPLASTIC SYNDROMEon AB P/Q-TYPE,CALCIUM CHANNEL BIND 0.00 nmol/L Normal <=0.02 [facility] Comment on above: Result Comment: ADDITIONAL INFORMATION This test was developed and its performance characteristics determined by [facility] in a manner consistent with CLIA requirements. This test has not been cleared or approved by the U.S. Food and Drug Administration. Performed By: #### X M #### [facility] [place] [facility] (DEFAULT) [address] [place] [address] AGNA-1 IMMUNOBLOT, S Negative Normal Negative [facility] Comment on above: Result Comment: ADDITIONAL INFORMATION This test was developed and its performance characteristics determined by [facility] in a manner consistent with CLIA requirements. This test has not been cleared or approved by the U.S. Food and Drug Administration. Performed By: #### X M #### [facility] [place] [facility] (DEFAULT) [address] [address] AMPHIPHYSIN ANTIBODY Negative Normal Negative [facility] Comment on above: Result Comment: ADDITIONAL INFORMATION This test was developed and its performance characteristics determined by [facility] in a manner consistent with CLIA requirements. This test has not been cleared or approved by the U.S. Food and Drug Administration. Performed By: #### X M #### [facility] [place] [facility] (DEFAULT) [address] [place] [address] JEREMY-3 Negative Normal Negative [facility] Comment on above: Result Comment: ADDITIONAL INFORMATION This test was developed and its performance characteristics determined by [facility] in a manner consistent with CLIA requirements. This test has not been cleared or approved by the U.S. Food and Drug Administration. Performed By: #### X M #### [facility] [place] [facility] (DEFAULT) [address] [place] [address] ANTI-HU (JEREMY-1) AB Negative Normal Negative [facility] Comment on above: Result Comment: ADDITIONAL INFORMATION This test was developed and its performance characteristics determined by [facility] in a manner consistent with CLIA requirements. This test has not been cleared or approved by the U.S. Food and Drug Administration. Performed By: #### X M #### [facility] [place] [facility] (DEFAULT) [address] [place] [address] ANTI-RI (JEREMY-2) AB Negative Normal Negative [facility] Comment on above: Result Comment: ADDITIONAL INFORMATION This test was developed and its performance characteristics determined by [facility] in a manner consistent with CLIA requirements. This test has not been cleared or approved by the U.S. Food and Drug Administration. Performed By: #### X M #### [facility] [place] [facility] (DEFAULT) [address] [place] [address] CRMP 5 IGG Negative Normal Negative [facility] Comment on above: Result Comment: ADDITIONAL INFORMATION This test was developed and its performance characteristics determined by [facility] in a manner consistent with CLIA requirements. This test has not been cleared or approved by the U.S. Food and Drug Administration. Performed By: #### X M #### [facility] [place] [facility] (DEFAULT) [address] [place] [address] IFA Notes None. Normal [facility] Comment on above: Performed By: #### X M #### [facility] [place] [facility] (DEFAULT) [address] [place] [address] NEURONAL VGKC AB 0.00 nmol/L Normal <=0.02 [facility] Comment on above: Result Comment: ADDITIONAL INFORMATION This test was developed and its performance characteristics determined by [facility] in a manner consistent with CLIA requirements. This test has not been cleared or approved by the U.S. Food and Drug Administration. Performed By: #### X M #### [facility] [place] [facility] (DEFAULT) [address] [place] [address] PARANEOPLAS INTERPRETIVE COMMENT SEE COMMENTS [facility] Comment on above: Result Comment: A ne gative basic paraneoplastic evaluation result does not rule out all clinically relevant antibodies. If indicated, a comprehensive neurological phenotype-specific autoimmune/paraneoplastic evaluation (e.g. encephalopathy, movement disorders, myelopathy, or axonal neuropathy) should be considered [email or web address] These evaluations include screening cell-based assays optimized for detection of recently discovered antibodies. Performed By: #### X M #### [facility] [place] [facility] (DEFAULT) [address] [place] [address] SEO SPECIALIST-1, PURKINJE CELL AB, TYPE 1 Negative Normal Negative [facility] Comment on above: Result Comment: ADDITIONAL INFORMATION This test was developed and its performance characteristics determined by [facility] in a manner consistent with CLIA requirements. This test has not been cleared or approved by the U.S. Food and Drug Administration. Performed By: #### X M #### [facility] [place] [facility] (DEFAULT) [address] [place] [address] SEO SPECIALIST-2 Negative Normal Negative [facility] Comment on above: Result Comment: ADDITIONAL INFORMATION This test was developed and its performance characteristics determined by [facility] in a manner consistent with CLIA requirements. This test has not been cleared or approved by the U.S. Food and Drug Administration. Performed By: #### X M #### [facility] [place] [facility] (DEFAULT) [address] [place] [address] SEO SPECIALIST-TR, PURKINJE CELL, TYPE TR Negative Normal Negative [facility] Comment on above: Result Comment: ADDITIONAL INFORMATION This test was developed and its performance characteristics determined by [facility] in a manner consistent with CLIA requirements. This test has not been cleared or approved by the U.S. Food and Drug Administration. Test Performed by: [facility] - [address] [address] [place]: Alfredito Rice M.D. Ph.D.; CLIA# [id number] Performed By: #### X M #### [facility] [place] [facility] (DEFAULT) [address] [place] [address] PROTEIN & GLUCOSE, CSFon CSF Glucose 68 mg/dL Normal 40-70 [facility] Comment on above: Performed By: #### N ONGNFNA #### [facility] (DEFAULT) [address] [place] [address] CSF Protein 43 mg/dL Normal 15-45 [facility] Comment on above: Performed By: #### N ONGNFNA #### [facility] (DEFAULT) [address] [place] [address] PROTEIN & GLUCOSE, CSFOrdere d By: Irene Moore on 09-11-2023 Glucose (CSF) [Mass/Vol] 68 mg/dL 40 - 70 mg/dL [facility] Interpretation and review of laboratory results Normal [facility] Protein (CSF) [Mass/Vol] 43 mg/dL 15 - 45 mg/dL [facility] PROTIME-INRon 09-11-2023 INR Coag (PPP) [Relative time] 1.1 {INR} Normal 0.9-1.1 [facility] Comment on above: Performed By: #### X M #### [facility] (DEFAULT) [address] [place] [address] PT Coag (PPP) [Time] 14.1 s Normal 11.9-14.2 [facility] Comment on above: Performed By: #### X M #### [facility] (DEFAULT) [address] [place] [address] INR Coag (Bld) [Relative time] 1.1 {INR} 0.9 - 1.1 [facility] Interpretation and review of laboratory results Normal [facility] PT Coag (PPP) [Time] 14.1 s [facility] THYROGLOBULIN ANTIBODYon Thyroglobulin Antibody <1.8 Normal <4.0 [facility] Comment on above: Result Comment: ADDITIONAL INFORMATION PLEASE NOTE: The given thyroglobulin antibody (TgAb) reference cutoff of <4.0 IU/mL is for the evaluation of autoimmune thyroiditis. A cutoff of <1.8 IU/mL may be more suitable for the detection of potential thyroglobulin antibody (TgAb) interference in thyroglobulin immunoassays. The thyroglobulin antibody testing method is an immunoenzymatic assay manufactured by [employer] and performed on the Companion Canine DXI 800. Values obtained from different assay methods or kits may be different and cannot be used interchangeably. The results cannot be interpreted as absolute evidence for the presence or absence of malignant disease. Test Performed by: [facility] [address] [place] [address] [place]: Alfredito Rice M.D. Ph.D.; CLIA# [id number] Performed By: #### C SFLC #### [facility] (DEFAULT) [address] [address] TSH W/FT4 REFLEXon Interpretation and review of laboratory results Normal [facility] TSH Qn 1.110 m[IU]/L [facility] TSH 1.110 uIU/mL Normal 0.550-4.780 [facility] Comment on above: Performed By: #### C SFLC #### [facility] (DEFAULT) [address] [address] TYPE AND SCREENon 09-11-2023 ABO/RH(D) TYPE Positive Normal [facility] Comment on above: Performed By: #### X M #### [facility] (DEFAULT) [address] [address] ABO/RH(D) TYPE Positive [facility] GLUCOSE POCon 09-10-2023 Glucose [Mass/Vol] 139 mg/dL High 70 - 99 mg/dL [facility] Interpretation and review of laboratory results Abnormal [facility] POC Sample Type CAPBL [facility] Absolute lymphocyte countOrd ered By: Teresa Knapp on 09-04-2023 Lymphocytes Auto (Unsp spec) [#/Vol] 2.00 10*3/uL 0.83-4.51 [facility] Automated lymphocyte count a s percentage of total leukocytesOrdered By: Teresa Knapp on 09-04-2023 Lymphocytes/100 WBC Auto (Unsp spec) 19.1 % 19-41 [facility] Basophil percentageOrdered B y: Teresa Knapp on 09-04-2023 Basophil percentage 7.4 g/dL 12.0-15.0 [facility] Basophil percentage 126 mg/dL 74-106 [facility] Basophil percentage 5.9 g/dL 6.4-8.2 [facility] Basophil percentage 0.40 mg/dL 0.20-1.00 [facility] Basophil percentage 131 mmol/L 136-145 [facility] Basophil percentage 5.7 mmol/L 3.5-5.1 [facility] Basophil percentage 94 mmol/L 98-107 [facility] Basophils (Bld) [#/Vol] 10.5 10*3/uL 4.4-11.0 [facility] Basophils (Bld) [#/Vol] 7.5 10*3/uL 2.0-7.7 [facility] Basophils/100 WBC (Bld) 71.3 % 47-[address] [facility] Basophils/100 WBC (Bld) 5.8 % 0-[address] [facility] Basophils/100 WBC (Bld) 1.1 % 0-[address] [facility] Basophils/100 WBC (Bld) 0.2 % 0-[address] [facility] Determination of erythrocyte mean corpuscular volume (MCV)Ordered By: Teresa Knapp on 09-04-2023 MCV (RBC) [Entitic vol] 95.0 fL 81-[address] [facility] Erythrocyte distribution wid th ratioOrdered By: Teresa Knapp on 09-04-2023 Erythrocyte distribution width (RBC) [Ratio] 15.4 % 11.6-14.6 [facility] Erythrocyte distribution wid th standard deviationOrdered By: Teresa Knapp on 09-04-2023 Erythrocyte distribution width (RBC) [Entitic vol] 53.6 fL 35.1-43.9 [facility] Hematocrit Auto (Bld) [Volum e fraction]Ordered By: Teresa Knapp on 09-04-2023 Hematocrit (Bld) [Volume fraction] 23.0 % 37-47 [facility] Immature granulocytes/100 WB C Auto (Bld)Ordered By: Teresa Knapp on 09-04-2023 Immature granulocytes/100 WBC (Bld) 2.500 % 0.0-0.9 [facility] No Panel InformationOrdered By: Teresa Knapp on 09-04-2023 30.6 pg 27.0-32.0 [facility] 32.2 g/dL 32-36 [facility] 155 K/mm3 150-450 [facility] 11.4 fl 6.2-12.0 [facility] 0 % 0-5 [facility] 11 mL/min >60 [facility] 13 mL/min >60 [facility] 7.49 ml/min [facility] 11.5 RATIO 10-20 [facility] 3.0 g/dL 2.2-4.2 [facility] 1.0 RATIO 0.9-2.4 [facility] 96 U/L 13-75 [facility] 56 U/L 45-117 [facility] 15 U/L 13-56 [facility] 32.0 mmol/L 21.0-32.0 [facility] RBC Auto (Bld) [#/Vol]Ordere d By: Teresa Knapp on 09-04-2023 RBC (Bld) [#/Vol] 2.42 10*6/uL 4.2-5.4 [facility] Serum or plasma calcium sandra urement (mass/volume)Ordered By: Teresa Knapp on 09-04-2023 Calcium [Mass/Vol] 9.4 mg/dL 8.5-10.1 [facility] Serum or plasma creatinine m easurement (mass/volume)Ordered By: Teresa Knapp on 09-04-2023 Creatinine [Mass/Vol] 4.09 mg/dL 0.55-1.02 [facility] Serum or plasma urea nitroge n measurement (mass/volume)Ordered By: Teresa Knapp on 09-04-2023 Urea nitrogen [Mass/Vol] 47 mg/dL 7-18 [facility] Thin prep Papanicolaou smear with manual screeningOrdered By: Teresa Knapp on 09-04-2023 Thin prep Papanicolaou smear with manual screening 2.9 g/dL 3.2-5.0 [facility] Thin prep Papanicolaou smear with manual screening 12 U/L 15-37 [facility] Thin prep Papanicolaou smear with manual screening 5 5-15 [facility] Basophil percentageOrdered B y: Lima Figueredo on 09-02-2023 Basophil percentage 10-25 SEEN /hpf 0-5 [facility] Bilirubin Test strip Ql (U)O rdered By: Lima Figueredo on 09-02-2023 Bilirubin Ql (U) Negative Negative [facility] Ketones Test strip Ql (U)Ord ered By: Lima Figueredo on 09-02-2023 Ketones Ql (U) 5 mg/dl Negative [facility] Mucus LM Ql (Urine sed)Order ed By: Lima Figueredo on 09-02-2023 Mucus Ql (Urine sed) 0 SEEN /hpf [facility] Nitrite Test strip Ql (U)Ord ered By: Lima Figueredo on 09-02-2023 Nitrite Ql (U) Negative Negative [facility] No Panel InformationOrdered By: Lima Figueredo on 09-02-2023 25-50 SEEN /hpf 0-5 [facility] Protein Test strip Ql (U)Ord ered By: Lima Figueredo on 09-02-2023 Protein Ql (U) 500 mg/dl Negative [facility] Squamous epithelial cells de tection in urine sediment by light microscopyOrdered By: Lima Figueredo on 09-02-2023 Epithelial cells.squamous LM Ql (Urine sed) 0-5 SEEN /hpf 5-10 [facility] Urine blood detectionOrdered By: Lima Figueredo on 09-02-2023 RBC Ql (U) 250 /ul Negative [facility] Urine clarityOrdered By: Ifrah Figueredo on 09-02-2023 Clarity (U) Sl. Cloudy Clear [facility] Urine color determinationOrd ered By: Lima Figueredo on 09-02-2023 Color (U) Red Yellow [facility] Urine glucose detectionOrder ed By: Lima Figueredo on 09-02-2023 Glucose Ql (U) 1000 mg/dl Normal [facility] Urine leukocyte esterase det ection by dipstickOrdered By: Lima Figueredo on 09-02-2023 Leukocyte esterase Test strip Ql (U) 100 /ul Negative [facility] Urine pHOrdered By: Lima Felton udla on 09-02-2023 pH (U) 8.0 [pH] 5.0 - 8.0 [facility] Urine sediment bacteria coun t by microscopy (number/high power field)Ordered By: Lima Figueredo on 09-02-2023 Bacteria LM.HPF (Urine sed) [#/Area] 2 /[HPF] None Seen [facility] Urine specific gravity measu rementOrdered By: Lima Figueredo on 09-02-2023 Specific gravity (U) [Rel density] 1.010 1.002-1.030 [facility] Urine urobilinogen measureme ntOrdered By: Lima Figueredo on 09-02-2023 Urobilinogen Ql (U) Normal mg/dl Normal [facility] Basophil percentageOrdered B y: Lima Fgiueredo on 09-01-2023 Basophil percentage 7.7 g/dL 12.0-15.0 [facility] Basophil percentage 98 mg/dL 74-106 [facility] Basophil percentage 134 mmol/L 136-145 [facility] Basophil percentage 5.7 mmol/L 3.5-5.1 [facility] Basophil percentage 100 mmol/L 98-107 [facility] Basophils (Bld) [#/Vol] 12.5 10*3/uL 4.4-11.0 [facility] Determination of erythrocyte mean corpuscular volume (MCV)Ordered By: Lima Figueredo on 09-01-2023 MCV (RBC) [Entitic vol] 95.7 fL 81-[address] [facility] Erythrocyte distribution wid th ratioOrdered By: Lima Figueredo on 09-01-2023 Erythrocyte distribution width (RBC) [Ratio] 15.5 % 11.6-14.6 [facility] Erythrocyte distribution wid th standard deviationOrdered By: Lima Figueredo on 09-01-2023 Erythrocyte distribution width (RBC) [Entitic vol] 54.4 fL 35.1-43.9 [facility] Hematocrit Auto (Bld) [Volum e fraction]Ordered By: Lima Figueredo on 09-01-2023 Hematocrit (Bld) [Volume fraction] 24.5 % 37-47 [facility] No Panel InformationOrdered By: Lima Figueredo on 09-01-2023 30.1 pg 27.0-32.0 [facility] 31.4 g/dL 32-36 [facility] 124 K/mm3 150-450 [facility] 14.7 fl 6.2-12.0 [facility] 7 mL/min >60 [facility] 9 mL/min >60 [facility] 10.8 RATIO 10-20 [facility] 28.0 mmol/L 21.0-32.0 [facility] RBC Auto (Bld) [#/Vol]Ordere d By: Lima Figueredo on 09-01-2023 RBC (Bld) [#/Vol] 2.56 10*6/uL 4.2-5.4 [facility] Serum or plasma calcium sandra urement (mass/volume)Ordered By: Lima Figueredo on 09-01-2023 Calcium [Mass/Vol] 9.7 mg/dL 8.5-10.1 [facility] Serum or plasma creatinine m easurement (mass/volume)Ordered By: Lima Figueredo on 09-01-2023 Creatinine [Mass/Vol] 5.85 mg/dL 0.55-1.02 [facility] Serum or plasma urea nitroge n measurement (mass/volume)Ordered By: Lima Figueredo on 09-01-2023 Urea nitrogen [Mass/Vol] 63 mg/dL 7-18 [facility] Thin prep Papanicolaou smear with manual screeningOrdered By: Lima Figueredo on 09-01-2023 Thin prep Papanicolaou smear with manual screening 6 5-15 [facility] Absolute lymphocyte countOrd ered By: Lima Figueredo on 08-27-2023 Lymphocytes Auto (Unsp spec) [#/Vol] 1.69 10*3/uL 0.83-4.51 [facility] Automated lymphocyte count a s percentage of total leukocytesOrdered By: Lima Figueredo on 08-27-2023 Lymphocytes/100 WBC Auto (Unsp spec) 20.7 % 19-41 [facility] Basophil percentageOrdered B y: Lima Figueredo on 08-27-2023 Basophil percentage 7.4 g/dL 12.0-15.0 [facility] Basophils (Bld) [#/Vol] 8.2 10*3/uL 4.4-11.0 [facility] Basophils (Bld) [#/Vol] 5.8 10*3/uL 2.0-7.7 [facility] Basophils/100 WBC (Bld) 71.5 % 47-[address] [facility] Basophils/100 WBC (Bld) 7.0 % 0-[address] [facility] Basophils/100 WBC (Bld) 0.2 % 0-[address] [facility] Basophils/100 WBC (Bld) 0.1 % 0-[address] [facility] Determination of erythrocyte mean corpuscular volume (MCV)Ordered By: Lima Figueredo on 08-27-2023 MCV (RBC) [Entitic vol] 93.9 fL 81-[address] [facility] Erythrocyte distribution wid th ratioOrdered By: Lima Figueredo on 08-27-2023 Erythrocyte distribution width (RBC) [Ratio] 15.2 % 11.6-14.6 [facility] Erythrocyte distribution wid th standard deviationOrdered By: Lima Figueredo on 08-27-2023 Erythrocyte distribution width (RBC) [Entitic vol] 52.4 fL 35.1-43.9 [facility] Hematocrit Auto (Bld) [Volum e fraction]Ordered By: Lima Figueredo on 08-27-2023 Hematocrit (Bld) [Volume fraction] 23.1 % 37-47 [facility] Immature granulocytes/100 WB C Auto (Bld)Ordered By: Lima Figueredo on 08-27-2023 Immature granulocytes/100 WBC (Bld) 0.500 % 0.0-0.9 [facility] No Panel InformationOrdered By: Lima Figueredo on 08-27-2023 30.1 pg 27.0-32.0 [facility] 32.0 g/dL 32-36 [facility] 114 K/mm3 150-450 [facility] 14.4 fl 6.2-12.0 [facility] 0 % 0-5 [facility] RBC Auto (Bld) [#/Vol]Ordere d By: Lima Figueredo on 08-27-2023 RBC (Bld) [#/Vol] 2.46 10*6/uL 4.2-5.4 [facility] Basophil percentageOrdered B y: Lima Figueredo on 08-25-2023 Basophil percentage 7.3 g/dL 12.0-15.0 [facility] Basophil percentage 94 mg/dL 74-106 [facility] Basophil percentage 134 mmol/L 136-145 [facility] Basophil percentage 4.8 mmol/L 3.5-5.1 [facility] Basophil percentage 96 mmol/L 98-107 [facility] Basophils (Bld) [#/Vol] 10.7 10*3/uL 4.4-11.0 [facility] Determination of erythrocyte mean corpuscular volume (MCV)Ordered By: Lima Figueredo on 08-25-2023 MCV (RBC) [Entitic vol] 92.7 fL 81-[address] [facility] Erythrocyte distribution wid th ratioOrdered By: Lima Figueredo on 08-25-2023 Erythrocyte distribution width (RBC) [Ratio] 15.6 % 11.6-14.6 [facility] Erythrocyte distribution wid th standard deviationOrdered By: Lima Figueredo on 08-25-2023 Erythrocyte distribution width (RBC) [Entitic vol] 52.9 fL 35.1-43.9 [facility] Hematocrit Auto (Bld) [Volum e fraction]Ordered By: Lima Figueredo on 08-25-2023 Hematocrit (Bld) [Volume fraction] 22.8 % 37-47 [facility] No Panel InformationOrdered By: Lima Figueredo on 08-25-2023 29.7 pg 27.0-32.0 [facility] 32.0 g/dL 32-36 [facility] 120 K/mm3 150-450 [facility] 15.1 fl 6.2-12.0 [facility] 7 mL/min >60 [facility] 9 mL/min >60 [facility] 10.6 RATIO 10-20 [facility] 31.0 mmol/L 21.0-32.0 [facility] RBC Auto (Bld) [#/Vol]Ordere d By: Lima Figueredo on 08-25-2023 RBC (Bld) [#/Vol] 2.46 10*6/uL 4.2-5.4 [facility] Serum or plasma calcium sandra urement (mass/volume)Ordered By: Lima Figueredo on 08-25-2023 Calcium [Mass/Vol] 9.2 mg/dL 8.5-10.1 [facility] Serum or plasma creatinine m easurement (mass/volume)Ordered By: Lima Figueredo on 08-25-2023 Creatinine [Mass/Vol] 5.78 mg/dL 0.55-1.02 [facility] Serum or plasma urea nitroge n measurement (mass/volume)Ordered By: Lima Figueredo on 08-25-2023 Urea nitrogen [Mass/Vol] 61 mg/dL 7-18 [facility] Thin prep Papanicolaou smear with manual screeningOrdered By: Lima Figueredo on 08-25-2023 Thin prep Papanicolaou smear with manual screening 7 5-15 [facility] Absolute lymphocyte countOrd ered By: Lima Figueredo on 08-18-2023 Lymphocytes Auto (Unsp spec) [#/Vol] 1.83 10*3/uL 0.83-4.51 [facility] Automated lymphocyte count a s percentage of total leukocytesOrdered By: Lima Figueredo on 08-18-2023 Lymphocytes/100 WBC Auto (Unsp spec) 16.7 % 19-41 [facility] Basophil percentageOrdered B y: Lima Figueredo on 08-18-2023 Basophil percentage 8.0 g/dL 12.0-15.0 [facility] Basophil percentage 100 mg/dL 74-106 [facility] Basophil percentage 5.1 g/dL 6.4-8.2 [facility] Basophil percentage 0.50 mg/dL 0.20-1.00 [facility] Basophil percentage 135 mmol/L 136-145 [facility] Basophil percentage 5.0 mmol/L 3.5-5.1 [facility] Basophil percentage 97 mmol/L 98-107 [facility] Basophils (Bld) [#/Vol] 11.0 10*3/uL 4.4-11.0 [facility] Basophils (Bld) [#/Vol] 7.9 10*3/uL 2.0-7.7 [facility] Basophils/100 WBC (Bld) 71.8 % 47-[address] [facility] Basophils/100 WBC (Bld) 7.5 % 0-[address] [facility] Basophils/100 WBC (Bld) 1.1 % 0-[address] [facility] Basophils/100 WBC (Bld) 0.3 % 0-[address] [facility] Determination of erythrocyte mean corpuscular volume (MCV)Ordered By: Lima Figueredo on 08-18-2023 MCV (RBC) [Entitic vol] 92.6 fL 81-[address] [facility] Erythrocyte distribution wid th ratioOrdered By: Lima Figueredo on 08-18-2023 Erythrocyte distribution width (RBC) [Ratio] 15.9 % 11.6-14.6 [facility] Erythrocyte distribution wid th standard deviationOrdered By: Lima Figueredo on 08-18-2023 Erythrocyte distribution width (RBC) [Entitic vol] 54.6 fL 35.1-43.9 [facility] Hematocrit Auto (Bld) [Volum e fraction]Ordered By: Lima Figueredo on 08-18-2023 Hematocrit (Bld) [Volume fraction] 25.1 % 37-47 [facility] Immature granulocytes/100 WB C Auto (Bld)Ordered By: Lima Figueredo on 08-18-2023 Immature granulocytes/100 WBC (Bld) 2.600 % 0.0-0.9 [facility] No Panel InformationOrdered By: Lima Figueredo on 08-18-2023 29.5 pg 27.0-32.0 [facility] 31.9 g/dL 32-36 [facility] 197 K/mm3 150-450 [facility] 14.3 fl 6.2-12.0 [facility] 0 % 0-5 [facility] 8 mL/min >60 [facility] 9 mL/min >60 [facility] 13.8 RATIO 10-20 [facility] 2.9 g/dL 2.2-4.2 [facility] 0.8 RATIO 0.9-2.4 [facility] 50 U/L 45-117 [facility] 13 U/L 13-56 [facility] 2.1 mg/dL 1.6-2.6 [facility] 25.0 mmol/L 21.0-32.0 [facility] > 2000 pg/mL 211-911 [facility] 30.8 ng/mL [facility] RBC Auto (Bld) [#/Vol]Ordere d By: Lima Figueredo on 08-18-2023 RBC (Bld) [#/Vol] 2.71 10*6/uL 4.2-5.4 [facility] Serum or plasma calcium sandra urement (mass/volume)Ordered By: Lima Figueredo on 08-18-2023 Calcium [Mass/Vol] 9.0 mg/dL 8.5-10.1 [facility] Serum or plasma creatinine m easurement (mass/volume)Ordered By: Lima Figueredo on 08-18-2023 Creatinine [Mass/Vol] 5.74 mg/dL 0.55-1.02 [facility] Serum or plasma thyroid stim ulating hormone (TSH) measurement (units/volume)Ordered By: Lima Figueredo on 08-18-2023 TSH Qn 2.34 uIU/mL 0.358-3.74 [facility] Serum or plasma urea nitroge n measurement (mass/volume)Ordered By: Lima Figueredo on 08-18-2023 Urea nitrogen [Mass/Vol] 79 mg/dL 7-18 [facility] Thin prep Papanicolaou smear with manual screeningOrdered By: Lima Figueredo on 08-18-2023 Thin prep Papanicolaou smear with manual screening 2.2 g/dL 3.2-5.0 [facility] Thin prep Papanicolaou smear with manual screening 12 U/L 15-37 [facility] Thin prep Papanicolaou smear with manual screening 13 5-15 [facility] Basic metabolic 2000 panelon 08-15-2023 Anion gap [Moles/Vol] 7 mmol/L Normal 5-16 [facility] Comment on above: Order Comment: Speci men Type: BLOOD SPECIMEN Ordering Facility: [facility] Address: [address] [place] [address] Performed By: #### 5 8410-2 #### [facility] CLIA [id number] [address] [place] [address] [place] Calcium [Mass/Vol] 9.1 mg/dL Normal 8.5-10.5 [facility] Comment on above: Order Comment: Speci men Type: BLOOD SPECIMEN Ordering Facility: [facility] Address: [address] [place] [address] Performed By: #### 5 8410-2 #### [facility] CLIA [id number] [address] [place] [address] [place] Chloride [Moles/Vol] 96 mmol/L Low 98-107 [facility] Comment on above: Order Comment: Speci men Type: BLOOD SPECIMEN Ordering Facility: [facility] Address: [address] [place] [address] Performed By: #### 5 8410-2 #### [facility] CLIA [id number] [address] [place] [address] [place] CO2 [Moles/Vol] 28 mmol/L Normal 21-32 [facility] Comment on above: Order Comment: Speci men Type: BLOOD SPECIMEN Ordering Facility: [facility] Address: [address] [place] [address] Performed By: #### 5 8410-2 #### [facility] CLIA [id number] [address] [place] [address] [place] Creatinine [Mass/Vol] 4.14 mg/dL High 0.51-0.95 [facility] Comment on above: Order Comment: Speci men Type: BLOOD SPECIMEN Ordering Facility: [facility] Address: [address] [place] [address] Result Comment: Yoly ents receiving either N-Acetylcysteine (NAC) or Metamizole prior to venipuncture, may have falsely depressed results. Performed By: #### 5 8410-2 #### [facility] CLIA [id number] [address] [place] [address] [place] Creatinine and Glomerular filtration rate.predicted panel (S/P/Bld) 10 mL/min/1.73m??? Low >=60 [facility] Comment on above: Order Comment: Noelle stevens Type: BLOOD SPECIMEN Ordering Facility: [facility] Address: [address] [place] [address] Result Comment: Isabelle mated Glomerular Filtration Rate (eGFR) is calculated using the 2020 CKD-EPI creatinine equation. This equation utilizes serum creatinine, sex, and age as parameters. The creatinine assay has traceable calibration to isotope dilution-mass spectrometry. Refer to KDIGO guidelines for clinical interpretation. In patients with unstable renal function, e.g. those with acute kidney injury, the eGFR may not accurately reflect actual GFR. Performed By: #### 5 8410-2 #### [facility] CLIA [id number] [address] [place] [address] [place] Glucose [Mass/Vol] 111 mg/dL High 70-100 [facility] Comment on above: Order Comment: Noelle stevens Type: BLOOD SPECIMEN Ordering Facility: [facility] Address: [address] [place] [address] Result Comment: The [place] [employer] (ADA) provides guidance for cutoff values for fasting glucose and random glucose. The ADA defines fasting as no caloric intake for at least 8 hours. Fasting plasma glucose results between 100 to 125 mg/dL indicate increased risk for diabetes (prediabetes). Fasting plasma glucose results greater than or equal to 126 mg/dL meet the criteria for diagnosis of diabetes. In the absence of unequivocal hyperglycemia, results should be confirmed by repeat testing. In a patient with classic symptoms of hyperglycemia or hyperglycemic crisis, random plasma glucose results greater than or equal to 200 mg/dL meet the criteria for diagnosis of diabetes. Reference: Standards of Medical Care in Diabetes 2016, [place] [employer]. Diabetes Care. 2016.39(Suppl 1). Results may be falsely elevated after the administration of Sulfapyridine. Results may be falsely depressed after the administration of Sulfasalazine. Performed By: #### 5 8410-2 #### [facility] CLIA [id number] [address] [place] [address] [place] Potassium [Moles/Vol] 4.7 mmol/L Normal 3.5-5.1 [facility] Comment on above: Order Comment: Speci men Type: BLOOD SPECIMEN Ordering Facility: [facility] Address: [address] [place] [address] Performed By: #### 5 8410-2 #### [facility] CLIA [id number] [address] [place] [address] [place] Sodium [Moles/Vol] 131 mmol/L Low 136-145 [facility] Comment on above: Order Comment: Speci men Type: BLOOD SPECIMEN Ordering Facility: [facility] Address: [address] [place] [address] Performed By: #### 5 8410-2 #### [facility] CLIA [id number] [address] [place], [place] [address] [place] Urea nitrogen [Mass/Vol] 75 mg/dL High 7-26 [facility] Comment on above: Order Comment: Alonzoi men Type: BLOOD SPECIMEN Ordering Facility: [facility] Address: [address] [place] [address] Performed By: #### 5 8410-2 #### [facility] CLIA [id number] [address] [place], [place] [address] [facility] [place] CASE MANAGEMon 08-15-2023 CASE MANAGEM HNO ID: [id number] Author: JORGE ALBERTO DYKES, LIZETTE Service: General Internal Medicine Author Type: Registered Nurse Type: Care Mgt Progress Note Filed: 08/15/2023 09:57 Note Text: CARE MANAGEMENT DISCHARGE NOTE SERVICE DATE: August 15, 2023 SERVICE TIME: 9:53 AM Admission Date: 08/04/2023 LOS: 11 days Discharge Arrangement Discharge Arrangement: Assisted Facility Was an expedited discharge program used?: No Services Arranged Provider Name: Dr. Roy Caregiver Assessment Caregiver is ready, willing and able to meet the patient's needs as recommended by the inter-professional team: Yes Name of Caregiver: [facility] Transportation Arrangements Transportation Arrangements: Ambulance Date of Trip: 08/15/23 Time of Trip: 0230 Is Patient Medicaid Pending?: No Was transportation financial coverage discussed with family?: POA Sales Planning Analyst Location: [facility] Destination: [facility] Financial Care Management Responsibility: Yes Handoff Communication: Handoff to: Kiss Machine Operator;Other Caregiver Kiss Machine Operator Name/Phone: Dr. Roy [phone] Other Caregiver Name/Phone: N2N Additional Information: NA Discharge Information Row Name Admission (Current) from 08/04/2023 in MR 10M MED/SURG Assisted Facility Agency [facility] Patient to be discharge to [facility] by cot by Lorin Szymanski, scheduled for 2:30pm. SonDiya (HCPOA) agreeable to potential OOP costs. Post acute dc form complete on chart. DNR form signed in packet. Facility, MD, family, and RN aware. No further discharge needs. SIGNATURE: Jorge Alberto Dykes RN PATIENT NAME: Lavinia Cohnnicoleliza DATE: August 15, 2023 TIME: 9:53 AM CONTACT #: [phone] [facility] CASE MANAGEM HNO ID: [id number] Author: JORGE ALBERTO DYKES RN Service: General Internal Medicine Author Type: Registered Nurse Type: Care Mgt Progress Note Filed: 08/15/2023 09:24 Note Text: CARE MANAGEMENT PROGRESS NOTE SERVICE DATE: 08/15/2023 SERVICE TIME: 909 LOS: 11 days IMM Follow Up Copy Given: Yes Copy given to:: Patient Method: In Person Form given to daughter at bedside. No questions at this time. SIGNATURE: Jorge Alberto Dykes RN PATIENT NAME: Lavinia Cohnnicoleliza DATE: August 15, 2023 TIME: 9:23 AM PAGER/CONTACT #: [phone] [facility] CNDSon 08-15-2023 CNDS HNO ID: [id number] Author: RON PARR DO Service: General Internal Medicine Author Type: Physician Type: Discharge Summary Filed: 08/20/2023 08:33 Note Text: DISCHARGE SUMMARY PATIENT NAME: Lavinia Durand ADMISSION DATE: 08/04/2023 DISCHARGE DATE: 08/15/2023 ATTENDING PHYSICIAN: Ron Parr DO Code Status: DNR-CCA Highest Readmission Risk Score: 55 The 30 day readmissions risk score is derived from an internally validated risk model which evaluates patient level characteristics, utilization history, medication orders and lab results up until the day of discharge. Patients with a score of 40 or above are considered highest risk for readmission. Specific patient level drivers will be listed at the bottom of the summary. CONSULTING TEAMS DURING HOSPITALIZATION: Nephrology: Dr Cason Neurology: Dr Haley Treatment Team: Attending Provider: Ron Parr DO Consulting: Polo Haley MD Consulting: Fabian Lawson MD Attending: MR JAYA LA Consulting: Lili Modi MD REASON FOR HOSPITALIZATION: altered mental status DIAGNOSIS: Principal Problem: AMS (altered mental status) (POA: Yes) Active Problems: ESRD (end stage renal disease) (HCC) (POA: Yes) Chronic kidney disease due to type 2 diabetes mellitus (HCC) (POA: Yes) Severe protein-calorie malnutrition (HCC) (POA: Yes) Hyponatremia (POA: Yes) Hyperkalemia (POA: No) Acute metabolic encephalopathy (POA: Yes) Resolved Problems: * No resolved hospital problems. 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 Initial lab work was significant for Na 134, Cr 5.01, and plts 98. She was admitted for further work up. Nephrology, oncology and neurology were consulted. She underwent LP, which was unrevealing for cause of confusion. Oncology started IV steroids, and her mental status began to improve. MRI brain was obtained and did not show any acute process or sign of metastasis. Oncology recommended further CT imaging to assess status of the cancer, but family elected to forego further work up. PT/OT recommended SNF. Her hospitalization was slightly prolonged due to uncontrolled BP. This improved with changes to her medications, and she was discharged in stable condition. 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 Appreciate oncology and neurology IV medrol changed to prednisone -> weaning prednisone -> 20 mg daily for 5 days, then 10 mg daily thereafter per oncology HTN urgency Tends to be highest in the am Continue carvedilol 25 mg BID Changed lisinopril to 20 mg BID Stopped nifedipine as patient unable to swallow the pills Increased hydralazine to 100 mg TID BP much improved and stable Hypotension Becomes hypotensive with IV prn meds DC'd prn IV hydralazine and prn IV labetalol 08/12 Hyponatremia Suspect from fluid shifts Hyperkalemia / ESRD Due for HD today Hypochloremia DM2 with hyperglycemia Insulin sliding scale 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 No further work up per daughter GOC -> patient DNR-CCA -> discussed plan with patient's daughter, and she would like to minimize meds as best as possible and get rid of anything unnecessary Transitions of Care Critical Issues: SPECIALIST FOLLOW-UP: nephrology. Low threshold for hospice LABS AND PROCEDURES PENDING AT DISCHARGE: No pending results. PATIENT CONDITION AT DISCHARGE: Improved DISCHARGE DISPOSITION: Assisted Facility PHYSICAL EXAMINATION: General appearance: NAD, appears comfortable, sitting in chair. Daughter at bedside Eyes: no scleral icterus, conjunctiva normal Oropharynx: MMM Lungs: effort normal Abdomen: Nondistended Neuro: No tremor, no seizure. Pleasantly confused. Poor cognition DIET: Resume pre-hospital diet Renal Diet: 90 gm protein, 2 gm potassium, 2 gm sodium, low phosphorus (800-1,000 mg) ACTIVITY: Limited to: with assistance ALLERGIES Allergen Reactions Atorvastatin Intolerance Severe fatigue Humira [Adalimumab] Rash DISCHARGE MEDICATION: Medication List START taking these medications docusate sodium 100 mg capsule Commonly known as: COLACE Take 1 capsule by mouth two times a day as needed for constipation. * hydrALAZINE 10 mg tablet Commonly known as: APRESOLINE Take 1 tablet by mouth every 6 hours as needed (SBP >180). * hydrAL (more content not included)... [facility] NURSING PROGon 08-15-2023 NURSING PROG HNO ID: [id number] Author: LAILA LIN, LIZETTE Service: Dialysis Author Type: Registered Nurse Type: Nursing Progress Note Filed: 08/15/2023 14:27 Note Text: Dialysis HD tx completed as ordered, blood retuirned, avf left arm used, +b/t taped and secure, hemostasis occured in 10 minutes both sites, no issues. Total UF = 2L. Patient returned to 10M, report given to Jaclyn Trejo RN [facility] CONSULT PROGon 08-14-2023 CONSULT PROG HNO ID: [id number] Author: POLO HALEY MD Service: Neurology General Author Type: Physician Type: Consult Progress Note Filed: 08/15/2023 11:39 Note Text: NEUROLOGY CONSULT PROGRESS NOTE SERVICE DATE: 08/14/2023 SERVICE TIME: 10:46 AM Current Attending Provider: Ron Parr DO Subjective Interval History: Today, Lavinia is improved. On steroids. Etiology of her mentation is unclear but I wonder about paraneoplastic syndrome and blood test will order. In the meantime continue with the current stairs steroids and dismissed when ready with a gradual decline watching her. Denies a headache or neck pain. Low sodium. Objective Physical Examination: Neurological: Mental Status: Slightly confused but follows directions more awake and alert out of bed to the chair more attentive wants to shower. No significant tremor noted. New Labs: WBC Date Value 08/13/2023 11.73 k/uL 08/12/2023 12.41 k/uL 08/11/2023 8.92 k/uL 03/13/2021 5.02 k/uL 03/08/2021 6.54 k/uL 01/06/2021 6.2 K/CUMM RBC Date Value 08/13/2023 3.05 m/uL 08/12/2023 3.37 m/uL 08/11/2023 3.43 m/uL 03/13/2021 2.89 m/uL 03/08/2021 3.23 m/uL 01/06/2021 3.46 M/CU MM Platelet Count Date Value 08/13/2023 225 k/uL 08/12/2023 221 k/uL 08/11/2023 201 k/uL 03/13/2021 230 k/uL 03/08/2021 254 k/uL 01/06/2021 250 K/CU MM BUN Date Value 08/13/2023 69 mg/dL 08/12/2023 39 mg/dL 08/11/2023 72 mg/dL 03/13/2021 37 mg/dL 03/08/2021 39 mg/dL 02/10/2021 33 MG/DL Creatinine Date Value 08/13/2023 4.63 mg/dL 08/12/2023 3.17 mg/dL 08/11/2023 5.82 mg/dL 03/13/2021 2.28 mg/dL 03/08/2021 2.03 mg/dL 02/10/2021 1.83 MG/DL Creatinine (POCT) (mg/dL) Date Value 02/15/2021 2.00 CBC, Coags, BMP, Mg, Phos Recent Labs 08/13/23 0502 08/12/23 0513 NA 130* 134* K 5.4* 4.4 CHLOR 93* 96* CO2 29 32 GLUC 235* 166* CA 9.6 9.9 Impression/Recommendatio ns 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 Smoking gun may be several. Continue with steroids, dismissed when ready, correct sodium, follow-up neurology 2 to 3 weeks. Dismissed on current dose of steroids and wean off as an outpatient. Using her behavior as guide as to how fast 1 should wean. Check paraneoplastic results SIGNATURE: Polo Haley MD PATIENT NAME: Lavinia Durand DATE: August 14, 2023 TIME: 10:46 AM [facility] NUTRITIONon 08-14-2023 NUTRITION HNO ID: [id number] Author: CATHERINE ESCOBEDO RD Service: ? Author Type: Registered Dietitian Type: Nutrition Filed: 08/14/2023 13:44 Note Text: NUTRITION THERAPY PROGRESS NOTE SERVICE DATE: 08/14/2023 SERVICE TIME: 1315 Nutrition Assessment: Recommended Malnutrition Diagnosis: Severe Protein-Calorie Malnutrition (08/06/23 1129 : Sally Oshea, REEMA) Estimated kilocalorie needs: 7679-3345 Calorie Calculation Method: 30-35 kcals/kg Estimated protein needs (grams): 60-70 Grams protein determined by: 1.2 - 1.5 g/kg Care Plan: Follow for diet advancement to goal Supplements: Nepro Monitor and Evaluation: Meet greater than 75% of estimated needs, Monitor fluid/electrolyte balance, Monitor labs, I/Os, vital signs, weight, Monitor bowel function Discharge Recommendations: Diet;Oral Supplements Diet: Regular diet to promote PO intake of tolerated texture. Oral Supplements: Supplement of preference QD Interval History: Pt admitted from [facility] for AMS, frequent falls, debility. MRI pending. PMH: ESRD w HD. DM, HTN, HxCA, osteoporosis, HCL. Per SNF/NH Pt was consuming renal ONS daily. Wts 95#. - 08/13: PO is fair w/ ~50% of meals completed. Observed ~50% of supplement completed. Pt reported not liking supplement. Encouraged Pt to at least drink half. Pt agreeable. Pt may benefit from appetite stimulant. Anthropometrics: Height: 152.4 cm (5') Weight: 45.4 kg (100 lb 1.6 oz) Dosing Weight: 47 kg (103 lb 9.9 oz) Body mass index is 19.55 kg/m?. Weight change percentage over time: -15% / 15# x4 months Weight Change: Clinically signficant weight loss Intake History: Current Nutrition Intake: Less than 75% estimated energy needs Current Intake Over time: (x7 days) Diet Orders (From admission, onward) Start Ordered 08/12/23 1215 DIET FOOD CONSISTENCY CONTROLLED START NOW Question: Food Consistency Answer: PUREED (L4) 08/12/23 1212 08/08/23 1245 DIET SUPPLEMENTS START NOW Question Answer Comment Supplement 1 NEPRO BUTTER PECAN Supplement 1 Frequency THREE TIMES/DAY WITH MEALS 08/08/23 1236 GI Symptoms: Anorexia Stool Amount: WNL Stool Consistency: Semi-formed;Formed MNT Billing: $ Reassessment: 1-15 minutes SIGNATURE: Catherine Escobedo RD PATIENT NAME: Lavinia Durand DATE: August 14, 2023 TIME: 1:36 PM Normal [facility] THERAPY NTon 08-14-2023 THERAPY NT HNO ID: [id number] Author: MERNO BUSH PT, DPT Service: Physical Therapy Author Type: Rigging Loft Mechanic Type: Therapy (PT/OT/Speech/Resp) Filed: 08/14/2023 17:17 Note Text: -------- Attestation signed by Meron Bush PT, DPT at 08/14/2023 5:17 PM I reviewed and agree with the documentation corresponding to this therapy visit. SIGNATURE: Meron Bush PT DPT DATE: August 14, 2023 TIME: 5:17 PM -------- Physical Therapy Treatment Summary SERVICE DATE: 08/14/2023 SERVICE TIME: 1425 to 1459 ROOM: [place] [id number] PT 6 Clicks Score: 11 DISCHARGE RECOMMENDATIONS Subacute/SNF Recommended Discharge Disposition Due to: Patient requires daily, facility-based rehabilitation from at least one discipline due to:, ADL impairment resulting in caregiver dependence, decline in functional status requiring daily skilled care Recommended Discharge Equipment: To Be Determined ASSESSMENT Response to Therapy Interventions: Cognitive Deficits, Limited Participation, Low Activity Tolerance, Needs Frequent Redirection or Reinstruction, Requires Encouragement to Complete Activities Patient responded fair/poor to today's visit. Patient demonstrated overall weakness and cognitive deficits. Patient required moderate cueing to understand what we were asking. Patient demonstrated limited functional mobility. PRECAUTIONS Bed/Chair Alarm, Fall Risk confused CURRENT HOSPITAL COURSE Transfer from [facility] to [facility] with altered mental status and unwitnessed fall at SNF. CT head negative. Neurology consult pending. 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 She is an unreliable historian at this time due to her confusion.) SUBJECTIVE I am feeling fine. THERAPY DIAGNOSIS Reduced mobility-other TREATMENT INTERVENTIONS Gait Training (10117) Timed Code Treatment (minutes): 34 Skilled Treatment Time (minutes): 34 TRAINING AND EDUCATION PROVIDED Bed Mobility, Benefits of In-Hospital Mobility, Energy Conservation, Falls Prevention, Anatomy and Impact on Deficits, Assistive Device Use, Equipment, Role of Physical Therapy, Transfers THERAPEUTIC SKILLS USED Cues for Sequencing/Proper Technique for Activity, Cuing Tactile, Cuing Verbal, Cuing Visual, Management of Critical Lines, Tubes and/or Drains, Movement Facilitation FUNCTIONAL STATUS Bed Mobility Rolling: Maximal Assistance Supine To Sit: Moderate Assistance, Additional Information Sit to Supine: Moderate Assistance Scooting: Moderate Assistance Transfers Sit To Stand: Maximal Assistance Slow to rise, flexed posture, Max A x 2 to stand Stand To Sit: Moderate Assistance Bed to Chair Maximal Assistance, Additional Information Bed To Chair Transfer Type: Stand Pivot Bed To Chair Transfer Equipment: Gait Belt Gait Maximal Assistance Gait Device: Hand Held Assist General Deviations/Observations: Nadeen decreased, Difficulty changing direction/turning, Flexed trunk posture, Narrow Base of Support, Non-functional gait speed, Shuffling Gait, Step length decreased, Improper distancing from assistive device Gait Distance (feet): 15 ft x 1 Stairs GOALS Patient will demonstrate understanding of importance of mobility during hospital stay and resolve all functional needs identified. Transfer Supine to/from Sit with: Supervision Transfer Sit to/from Stand with: Supervision Ambulate with: Supervision Distance: 80ft Device: Wheeled Walker Rehab Potential: Fair Progress Toward Goals: Progressing slower than expected PLAN PT Frequency: 3 Times Per Week Treatment Interventions: Education, Self Care / Home Management, Energy Conservation Training, Strengthening, Functional Mobility Training, Balance Training, Neuromuscular Re-education Plan for Next Visit: Bed Mobility, Fall Prevention, Gait Training, Stair Training, Standing Tolerance, Standing Balance Supervising therapist was present and guided the care of the patient for the entire session on this date. All documentation was reviewed and agreed upon. Elodia Grewal PTA SIGNATURE: JASEN Salas PATIENT NAME: Lavinia Durand DATE: August 14, 2023 TIME: 4:11 PM Normal [facility] Basic metabolic 2000 panelon 08-13-2023 Anion gap [Moles/Vol] 8 mmol/L Normal 5-16 [facility] Comment on above: Order Comment: Speci men Type: BLOOD SPECIMEN Ordering Facility: [facility] Address: [address] [place] [address] Performed By: #### 5 8410-2 #### [facility] CLIA [id number] [address] [place] [address] [place] Calcium [Mass/Vol] 9.6 mg/dL Normal 8.5-10.5 [facility] Comment on above: Order Comment: Speci men Type: BLOOD SPECIMEN Ordering Facility: [facility] Address: [address] [place] [address] Performed By: #### 5 8410-2 #### [facility] CLIA [id number] [address] [place] [address] [place] Chloride [Moles/Vol] 93 mmol/L Low 98-107 [facility] Comment on above: Order Comment: Speci men Type: BLOOD SPECIMEN Ordering Facility: [facility] Address: [address] [place] [address] Performed By: #### 5 8410-2 #### [facility] CLIA [id number] [address] [place] [address] [place] CO2 [Moles/Vol] 29 mmol/L Normal 21-32 [facility] Comment on above: Order Comment: Speci men Type: BLOOD SPECIMEN Ordering Facility: [facility] Address: [address] [place] [address] Performed By: #### 5 8410-2 #### [facility] CLIA [id number] [address] [place] [address] [place] Creatinine [Mass/Vol] 4.63 mg/dL High 0.51-0.95 [facility] Comment on above: Order Comment: Noelle stevens Type: BLOOD SPECIMEN Ordering Facility: [facility] Address: [address] [place] [address] Result Comment: Yoly ents receiving either N-Acetylcysteine (NAC) or Metamizole prior to venipuncture, may have falsely depressed results. Performed By: #### 5 8410-2 #### [facility] CLIA [id number] [address] [place] [address] [place] [facility] [place] Creatinine and Glomerular filtration rate.predicted panel (S/P/Bld) 9 mL/min/1.73m??? Low >=60 [facility] Comment on above: Order Comment: Noelle stevens Type: BLOOD SPECIMEN Ordering Facility: [facility] Address: [address] [place] [address] Result Comment: Isabelle mated Glomerular Filtration Rate (eGFR) is calculated using the 2020 CKD-EPI creatinine equation. This equation utilizes serum creatinine, sex, and age as parameters. The creatinine assay has traceable calibration to isotope dilution-mass spectrometry. Refer to KDIGO guidelines for clinical interpretation. In patients with unstable renal function, e.g. those with acute kidney injury, the eGFR may not accurately reflect actual GFR. Performed By: #### 5 8410-2 #### [facility] CLIA [id number] [address] [place] [address] [place] Glucose [Mass/Vol] 235 mg/dL High 70-100 [facility] Comment on above: Order Comment: Noelle stevens Type: BLOOD SPECIMEN Ordering Facility: [facility] Address: [address] [place] [address] Result Comment: The [place] Diabetes Association (ADA) provides guidance for cutoff values for fasting glucose and random glucose. The ADA defines fasting as no caloric intake for at least 8 hours. Fasting plasma glucose results between 100 to 125 mg/dL indicate increased risk for diabetes (prediabetes). Fasting plasma glucose results greater than or equal to 126 mg/dL meet the criteria for diagnosis of diabetes. In the absence of unequivocal hyperglycemia, results should be confirmed by repeat testing. In a patient with classic symptoms of hyperglycemia or hyperglycemic crisis, random plasma glucose results greater than or equal to 200 mg/dL meet the criteria for diagnosis of diabetes. Reference: Standards of Medical Care in Diabetes 2016, [place] [employer] Association. Diabetes Care. 2016.39(Suppl 1). Results may be falsely elevated after the administration of Sulfapyridine. Results may be falsely depressed after the administration of Sulfasalazine. Performed By: #### 5 8410-2 #### [facility] CLIA [id number] [address] [place] [address] [place] Potassium [Moles/Vol] 5.4 mmol/L High 3.5-5.1 [facility] Comment on above: Order Comment: Noelle stevens Type: BLOOD SPECIMEN Ordering Facility: [facility] Address: [address] [place] [address] Performed By: #### 5 8410-2 #### [facility] CLIA [id number] [address] [place] [address] [place] Sodium [Moles/Vol] 130 mmol/L Low 136-145 [facility] Comment on above: Order Comment: Noelle stevens Type: BLOOD SPECIMEN Ordering Facility: [facility] Address: [address] [place] [address] Performed By: #### 5 8410-2 #### [facility] CLIA [id number] [address] [place] [address] [place] Urea nitrogen [Mass/Vol] 69 mg/dL High 7-26 [facility] Comment on above: Order Comment: Noelle stevens Type: BLOOD SPECIMEN Ordering Facility: [facility] Address: [address] [place] [address] Performed By: #### 5 8410-2 #### [facility] CLIA [id number] [address] [place] [address] OF [facility] CASE MANAGEMon 08-13-2023 CASE MANAGEM HNO ID: [id number] Author: DYKES, JORGE ALBERTO, RN Service: General Internal Medicine Author Type: Registered Nurse Type: Care Mgt Progress Note Filed: 08/13/2023 14:10 Note Text: CARE MANAGEMENT PROGRESS NOTE SERVICE DATE: 08/13/2023 SERVICE TIME: 2:10 PM LOS: 9 days Patient from [facility] admitted for AMS, sudden encephalopathy. Neuro following. Nephro following. Hem/Onc following. Room air. BP monitor/control. Patient AANDO x1. Patient is from [facility] where she gets in house dialysis MWF. Pt can return, no precert needed. CM confirmed with sonDiya (HCPOA) that plan is to return [facility]. Plan to return to [facility]. Pending medical clearance. SIGNATURE: Jorge Alberto Dykes RN PATIENT NAME: Lavinia Durand DATE: August 13, 2023 TIME: 2:10 PM PAGER/CONTACT #: [phone] Normal [facility] CBC W Auto Differential pane l (Bld)on 08-13-2023 Basophils (Bld) [#/Vol] 10*3/uL Normal <0.11 [facility] Comment on above: Order Comment: Speci men Type: BLOOD SPECIMEN Ordering Facility: [facility] Address: [address] [place] [address] Performed By: #### 5 8410-2 #### [facility] CLIA [id number] [address] [place] [address] [place] Basophils/100 WBC (Bld) 0.1 % Normal [facility] Comment on above: Order Comment: Speci men Type: BLOOD SPECIMEN Ordering Facility: [facility] Address: [address] [place] [address] Performed By: #### 5 8410-2 #### [facility] CLIA [id number] [address] [place] [address] [place] Differential cell count method Nom (Bld) Auto Normal [facility] Comment on above: Order Comment: Speci men Type: BLOOD SPECIMEN Ordering Facility: [facility] Address: [address] [place] [address] Performed By: #### 5 8410-2 #### [facility] CLIA [id number] [address] [place] [address] [place] Eosinophils (Bld) [#/Vol] 10*3/uL Normal <0.46 [facility] Comment on above: Order Comment: Speci men Type: BLOOD SPECIMEN Ordering Facility: [facility] Address: [address] [place] [address] Performed By: #### 5 8410-2 #### [facility] CLIA [id number] [address] [place] [address] [place] Eosinophils/100 WBC (Bld) 0.0 % Normal [facility] Comment on above: Order Comment: Speci men Type: BLOOD SPECIMEN Ordering Facility: [facility] Address: [address] [place] [address] Performed By: #### 5 8410-2 #### [facility] CLIA [id number] [address] [place] [address] [place] Erythrocyte distribution width (RBC) [Ratio] 15.6 % High 11.5-15.0 [facility] Comment on above: Order Comment: Speci men Type: BLOOD SPECIMEN Ordering Facility: [facility] Address: [address] [place] [address] Performed By: #### 5 8410-2 #### [facility] CLIA [id number] [address] [place] [address] [place] Hematocrit (Bld) [Volume fraction] 27.9 % Low 36.0-46.0 [facility] Comment on above: Order Comment: Speci men Type: BLOOD SPECIMEN Ordering Facility: [facility] Address: [address] [place] [address] Performed By: #### 5 8410-2 #### [facility] CLIA [id number] [address] [place] [address] [place] Hemoglobin (Bld) [Mass/Vol] 9.0 g/dL Low 11.5-15.5 [facility] Comment on above: Order Comment: Speci men Type: BLOOD SPECIMEN Ordering Facility: [facility] Address: [address] [place] [address] Performed By: #### 5 8410-2 #### [facility] CLIA [id number] [address] [place] [address] [place] Immature granulocytes (Bld) [#/Vol] 0.14 10*3/uL High <0.10 [facility] Comment on above: Order Comment: Speci men Type: BLOOD SPECIMEN Ordering Facility: [facility] Address: [address] [place] [address] Performed By: #### 5 8410-2 #### [facility] CLIA [id number] [address] [place] [address] [place] Immature granulocytes/100 WBC (Bld) 1.2 % Normal [facility] Comment on above: Order Comment: Speci men Type: BLOOD SPECIMEN Ordering Facility: [facility] Address: [address] [place] [address] Performed By: #### 5 8410-2 #### [facility] CLIA [id number] [address] [place] [address] [place] Lymphocytes (Bld) [#/Vol] 0.68 10*3/uL Low 1.00-4.00 [facility] Comment on above: Order Comment: Speci men Type: BLOOD SPECIMEN Ordering Facility: [facility] Address: [address] [place] [address] Performed By: #### 5 8410-2 #### [facility] CLIA [id number] [address] [place] [address] [place] Lymphocytes/100 WBC (Bld) 5.8 % Normal [facility] Comment on above: Order Comment: Speci men Type: BLOOD SPECIMEN Ordering Facility: [facility] Address: [address] [place] [address] Performed By: #### 5 8410-2 #### [facility] CLIA [id number] [address] [place] [address] [place] MCH (RBC) [Entitic mass] 29.5 pg Normal 26.0-34.0 [facility] Comment on above: Order Comment: Speci men Type: BLOOD SPECIMEN Ordering Facility: [facility] Address: [address] [place] [address] Performed By: #### 5 8410-2 #### [facility] CLIA [id number] [address] [place] [address] [place] MCHC (RBC) [Mass/Vol] 32.3 g/dL Normal 30.5-36.0 [facility] Comment on above: Order Comment: Speci men Type: BLOOD SPECIMEN Ordering Facility: [facility] Address: [address] [place] [address] Performed By: #### 5 8410-2 #### [facility] CLIA [id number] [address] [place] [address] [place] MCV (RBC) [Entitic vol] 91.5 fL Normal 80.0-100.0 [facility] Comment on above: Order Comment: Speci men Type: BLOOD SPECIMEN Ordering Facility: [facility] Address: [address] [place] [address] Performed By: #### 5 8410-2 #### [facility] CLIA [id number] [address] [place] [address] [place] Monocytes (Bld) [#/Vol] 0.12 10*3/uL Normal <0.87 [facility] Comment on above: Order Comment: Speci men Type: BLOOD SPECIMEN Ordering Facility: [facility] Address: [address] [place] [address] Performed By: #### 5 8410-2 #### [facility] CLIA [id number] [address] [place] [address] [place] Monocytes/100 WBC (Bld) 1.0 % Normal [facility] Comment on above: Order Comment: Speci men Type: BLOOD SPECIMEN Ordering Facility: [facility] Address: [address] [place] [address] Performed By: #### 5 8410-2 #### [facility] CLIA [id number] [address] [place] [address] [place] Neutrophils (Bld) [#/Vol] 10.78 10*3/uL High 1.45-7.50 [facility] Comment on above: Order Comment: Speci men Type: BLOOD SPECIMEN Ordering Facility: [facility] Address: [address] [place] [address] Performed By: #### 5 8410-2 #### [facility] CLIA [id number] [address] [place] [address] [place] Neutrophils/100 WBC (Bld) 91.9 % Normal [facility] Comment on above: Order Comment: Speci men Type: BLOOD SPECIMEN Ordering Facility: [facility] Address: [address] [place] [address] Performed By: #### 5 8410-2 #### [facility] CLIA [id number] [address] [place] [address] [place] Nucleated RBC (Bld) [#/Vol] 10*3/uL Normal <0.01 [facility] Comment on above: Order Comment: Speci men Type: BLOOD SPECIMEN Ordering Facility: [facility] Address: [address] [place] [address] Performed By: #### 5 8410-2 #### [facility] CLIA [id number] [address] [place] [address] [place] Nucleated RBC/100 WBC (Bld) [Ratio] 0.0 /100 WBC Normal [facility] Comment on above: Order Comment: Speci men Type: BLOOD SPECIMEN Ordering Facility: [facility] Address: [address] [place] [address] Performed By: #### 5 8410-2 #### [facility] CLIA [id number] [address] [place] [address] [place] Platelet mean volume (Bld) [Entitic vol] 11.1 fL Normal 9.0-12.7 [facility] Comment on above: Order Comment: Speci men Type: BLOOD SPECIMEN Ordering Facility: [facility] Address: [address] [place] [address] Performed By: #### 5 8410-2 #### [facility] CLIA [id number] [address] [place], [place] [address] [facility] [place] Platelets (Bld) [#/Vol] 225 10*3/uL Normal 150-400 [facility] Comment on above: Order Comment: Speci men Type: BLOOD SPECIMEN Ordering Facility: [facility] Address: [address] [place] [address] Performed By: #### 5 8410-2 #### [facility] CLIA [id number] [address] [place] [address] [facility] [place] RBC (Bld) [#/Vol] 3.05 10*6/uL Low 3.90-5.20 [facility] Comment on above: Order Comment: Speci men Type: BLOOD SPECIMEN Ordering Facility: [facility] Address: [address] [place] [address] Performed By: #### 5 8410-2 #### [facility] CLIA [id number] [address] [place] [address] [place] WBC (Bld) [#/Vol] 11.73 10*3/uL High 3.70-11.00 [facility] Comment on above: Order Comment: Speci men Type: BLOOD SPECIMEN Ordering Facility: [facility] Address: [address] [place] [address] Performed By: #### 5 8410-2 #### [facility] CLIA [id number] [address] [place], [place] [address] [facility] CONSULT PROGon 08-13-2023 CONSULT PROG HNO ID: [id number] Author: POLO HALEY MD Service: Neurology General Author Type: Physician Type: Consult Progress Note Filed: 08/13/2023 14:24 Note Text: NEUROLOGY CONSULT PROGRESS NOTE SERVICE DATE: 08/13/2023 SERVICE TIME: 12:30 PM Current Attending Provider: Ron Parr DO Subjective Interval History: Today, Lavinia is approved. Taking Solu-Medrol. More awake and attentive this morning. Daughter wonders about the gabapentin and if it is depressing her consciousness or her mental status. She has taken it for a long time for pain and I told I will wean her off it at this point. Kidney tumor removed and cured wo CT. End-stage renal disease on hemodialysis. H/O bladder CA also .Patient denies a headache. Workup so far for neurology is negative as to the cause of her mental status which I think is probably multifactorial including chemotherapy the kidney disease the kidney tumor and other factors. I think family overall wants comfort. I offered transfer to [facility] and did not want it. Objective Physical Examination: Neurological: Mental Status: Encephalopathic. Still quiet. Little bit more awake. Follows simple directions. New Labs: WBC Date Value 08/13/2023 11.73 k/uL 08/12/2023 12.41 k/uL 08/11/2023 8.92 k/uL 03/13/2021 5.02 k/uL 03/08/2021 6.54 k/uL 01/06/2021 6.2 K/CUMM RBC Date Value 08/13/2023 3.05 m/uL 08/12/2023 3.37 m/uL 08/11/2023 3.43 m/uL 03/13/2021 2.89 m/uL 03/08/2021 3.23 m/uL 01/06/2021 3.46 M/CU MM Platelet Count Date Value 08/13/2023 225 k/uL 08/12/2023 221 k/uL 08/11/2023 201 k/uL 03/13/2021 230 k/uL 03/08/2021 254 k/uL 01/06/2021 250 K/CU MM BUN Date Value 08/13/2023 69 mg/dL 08/12/2023 39 mg/dL 08/11/2023 72 mg/dL 03/13/2021 37 mg/dL 03/08/2021 39 mg/dL 02/10/2021 33 MG/DL Creatinine Date Value 08/13/2023 4.63 mg/dL 08/12/2023 3.17 mg/dL 08/11/2023 5.82 mg/dL 03/13/2021 2.28 mg/dL 03/08/2021 2.03 mg/dL 02/10/2021 1.83 MG/DL Creatinine (POCT) (mg/dL) Date Value 02/15/2021 2.00 CBC, Coags, BMP, Mg, Phos Recent Labs 08/13/23 0502 08/12/23 0513 08/11/23 0502 NA 130* 134* 129* K 5.4* 4.4 5.3* CHLOR 93* 96* 93* CO2 29 32 25 GLUC 235* 166* 193* CA 9.6 9.9 10.0 Liver Function, Amylase, AND Lipase Recent Labs 08/11/23 0502 TPROT 5.9* ALB 2.2* ALT 7* AST 13 ALKPHOS 72 TBILI <0.2* Impression/Recommendatio ns Multifactorial encephalopathy. Patient renal disease on hemodialysis On steroids. Check paraneoplastic panel. SIGNATURE: Polo Haley MD PATIENT NAME: Lavinia Durand DATE: August 13, 2023 TIME: 12:30 PM Normal [facility] NURSING PROGon 08-13-2023 NURSING PROG HNO ID: [id number] Author: FAREED ARTHUR LPN Service: ? Author Type: LICENSED NURSE Type: Nursing Progress Note Filed: 08/13/2023 19:48 Note Text: Hemodialysis completed. Total fluid removed =1000. BP fluctuation during treatment. Post BP =155/70. No medication given. Stable post treatment. No change in status. Normal [facility] Basic metabolic 2000 panelon 08-12-2023 Anion gap [Moles/Vol] 6 mmol/L Normal - [facility] Comment on above: Order Comment: Noelle stevens Type: BLOOD SPECIMENOrdering Facility: [facility] Address: [address] [place] [address] Performed By: #### 2 4321-2 ####[facility]ORY[facility]IA [id number] [place] [address] [place] Calcium [Mass/Vol] 9.9 mg/dL Normal 8.5-10.5 [facility] Comment on above: Order Comment: Noelle stevens Type: BLOOD SPECIMENOrdering Facility: [facility] Address: [address] [place] [address] Performed By: #### 2 4321-2 ####[facility]ORYCLIA [id number] [place] [address] [place] Chloride [Moles/Vol] 96 mmol/L Low 98-107 [facility] Comment on above: Order Comment: Speci men Type: BLOOD SPECIMENOrdering Facility: [facility] Address: [address] [place] [address] Performed By: #### 2 4321-2 ####[facility]ORYCLIA [id number] [place] [address] [place] CO2 [Moles/Vol] 32 mmol/L Normal 21-32 [facility] Comment on above: Order Comment: Speci men Type: BLOOD SPECIMENOrdering Facility: [facility] Address: [address] [place] [address] Performed By: #### 2 4321-2 ####[facility]ORYCLIA [id number] [place] [address] [place] Creatinine [Mass/Vol] 3.17 mg/dL High 0.51-0.95 [facility] Comment on above: Order Comment: Speci men Type: BLOOD SPECIMENOrdering Facility: [facility] Address: [address] [place] [address] Result Comment: Yoly ents receiving either N-Acetylcysteine (NAC) or Metamizole prior to venipuncture, may have falsely depressed results. Performed By: #### 2 4321-2 ####[facility]ORYCLIA [id number] [address] [place] Creatinine and Glomerular filtration rate.predicted panel (S/P/Bld) 14 mL/min/1.73m??? Low >=60 [facility] Comment on above: Order Comment: Speci men Type: BLOOD SPECIMENOrdering Facility: [facility] Address: [address] [place] [address] Result Comment: Isabelle mated Glomerular Filtration Rate (eGFR) is calculated using the 2020 CKD-EPI creatinine equation. This equation utilizes serum creatinine, sex, and age as parameters. The creatinine assay has traceable calibration to isotope dilution-mass spectrometry. Refer to KDIGO guidelines for clinical interpretation. In patients with unstable renal function, e.g. those with acute kidney injury, the eGFR may not accurately reflect actual GFR. Performed By: #### 2 4321-2 ####[facility]ORYCLIA [id number] [place] [id number] [place] Glucose [Mass/Vol] 166 mg/dL High 70-100 [facility] Comment on above: Order Comment: Noelle stevens Type: BLOOD SPECIMENOrdering Facility: [facility] Address: [address] [place] [id number] Result Comment: The [place] Diabetes Association (ADA) provides guidance for cutoff values for fasting glucose and random glucose. The ADA defines fasting as no caloric intake for at least 8 hours. Fasting plasma glucose results between 100 to 125 mg/dL indicate increased risk for diabetes (prediabetes). Fasting plasma glucose results greater than or equal to 126 mg/dL meet the criteria for diagnosis of diabetes. In the absence of unequivocal hyperglycemia, results should be confirmed by repeat testing. In a patient with classic symptoms of hyperglycemia or hyperglycemic crisis, random plasma glucose results greater than or equal to 200 mg/dL meet the criteria for diagnosis of diabetes. Reference: Standards of Medical Care in Diabetes 2016, [place] [employer]. Diabetes Care. 2016.39(Suppl 1). Results may be falsely elevated after the administration of Sulfapyridine. Results may be falsely depressed after the administration of Sulfasalazine. Performed By: #### 2 4321-2 ####[facility]ORYCLIA [id number] [place] [address] [place] Potassium [Moles/Vol] 4.4 mmol/L Normal 3.5-5.1 [facility] Comment on above: Order Comment: Noelle stevens Type: BLOOD SPECIMENOrdering Facility: [facility] Address: [address] [place] [address] Performed By: #### 2 4321-2 ####[facility]ORYCLIA [id number] [place] [id number] [place] Sodium [Moles/Vol] 134 mmol/L Low 136-145 [facility] Comment on above: Order Comment: Noelle stevens Type: BLOOD SPECIMENOrdering Facility: [facility] Address: [address] [place] [address] Performed By: #### 2 4321-2 ####[facility]ORYCLIA [id number] [place] [id number] [facility] Urea nitrogen [Mass/Vol] 39 mg/dL High 7- [facility] Comment on above: Order Comment: Speci men Type: BLOOD SPECIMENOrdering Facility: [facility] Address: [address] [place], [place] [address] Performed By: #### 2 4321-2 ####[facility]ORYCLIA [id number] [place] [id number] [facility] CASE MANAGEMon 08-12-2023 CASE MANAGEM HNO ID: [id number] Author: JORGE ALBERTO DYKES RN Service: General Internal Medicine Author Type: Registered Nurse Type: Care Mgt Progress Note Filed: 08/12/2023 14:13 Note Text: CARE MANAGEMENT PROGRESS NOTE SERVICE DATE: 08/12/2023 SERVICE TIME: 1:49 PM LOS: 8 days Chart reviewed. Patient from [facility] admitted for AMS, sudden encephalopathy. Neuro following. Nephro following. Hem/Onc following. Room air. IV solumedrol. Patient AANDO x1. Patient is from [facility] where she gets in house dialysis MWF. Pt can return, no precert needed. CM confirmed with sonDiya (HCPOA) that plan is to return [facility]. Plan to return to [facility]. Pending medical clearance. SIGNATURE: Jorge Alberto Dykes RN PATIENT NAME: Lavinia Durand DATE: August 12, 2023 TIME: 1:49 PM PAGER/CONTACT #: [phone] Normal [facility] CBC W Auto Differential pane l (Bld)on 08-12-2023 Basophils (Bld) [#/Vol] 10*3/uL Normal <0.11 [facility] Comment on above: Order Comment: Speci men Type: BLOOD SPECIMENOrdering Facility: [facility] Address: [address] [place], [place] [address] Performed By: #### 5 7021-8 ####[facility]ORYCLIA [id number] [place] [address] [place] Basophils/100 WBC (Bld) 0.2 % Normal [facility] Comment on above: Order Comment: Speci men Type: BLOOD SPECIMENOrdering Facility: [facility] Address: [address] [place] [address] Performed By: #### 5 7021-8 ####[facility]ORYCLIA [id number] [place] [address] [facility] [place] Differential cell count method Nom (Bld) Auto Normal [facility] Comment on above: Order Comment: Speci men Type: BLOOD SPECIMENOrdering Facility: [facility] Address: [address] [place] [address] Performed By: #### 5 7021-8 ####[facility]ORYCLIA [id number] [place] [address] [place] Eosinophils (Bld) [#/Vol] 10*3/uL Normal <0.46 [facility] Comment on above: Order Comment: Speci men Type: BLOOD SPECIMENOrdering Facility: [facility] Address: [address] [place] [address] Performed By: #### 5 7021-8 ####[facility]ORYCLIA [id number] [address] [place] Eosinophils/100 WBC (Bld) 0.1 % Normal [facility] Comment on above: Order Comment: Speci men Type: BLOOD SPECIMENOrdering Facility: [facility] Address: [address] [place] [address] Performed By: #### 5 7021-8 ####[facility]ATORYCLIA [id number] [address] [place] Erythrocyte distribution width (RBC) [Ratio] 15.5 % High 11.5-15.0 [facility] Comment on above: Order Comment: Speci men Type: BLOOD SPECIMENOrdering Facility: [facility] Address: [address] [place] [address] Performed By: #### 5 7021-8 ####[facility]ATORYCLIA [id number] [place] [address] [place] Hematocrit (Bld) [Volume fraction] 30.1 % Low 36.0-46.0 [facility] Comment on above: Order Comment: Speci men Type: BLOOD SPECIMENOrdering Facility: [facility] Address: [address] [place] [address] Performed By: #### 5 7021-8 ####[facility]ORYCLIA [id number] [place] [address] [place] Hemoglobin (Bld) [Mass/Vol] 9.9 g/dL Low 11.5-15.5 [facility] Comment on above: Order Comment: Speci men Type: BLOOD SPECIMENOrdering Facility: [facility] Address: [address] [place] [address] Performed By: #### 5 7021-8 ####[facility]ORYCLIA [id number] [address] [place] Immature granulocytes (Bld) [#/Vol] 0.08 10*3/uL Normal <0.10 [facility] Comment on above: Order Comment: Speci men Type: BLOOD SPECIMENOrdering Facility: [facility] Address: [address] [place] [address] Performed By: #### 5 7021-8 ####[facility]ATORYCLIA [id number] [place] [address] [place] Immature granulocytes/100 WBC (Bld) 0.6 % Normal [facility] Comment on above: Order Comment: Speci men Type: BLOOD SPECIMENOrdering Facility: [facility] Address: [address] [place] [address] Performed By: #### 5 7021-8 ####[facility]ORYCLIA [id number] [place] [address] [place] Lymphocytes (Bld) [#/Vol] 0.70 10*3/uL Low 1.00-4.00 [facility] Comment on above: Order Comment: Speci men Type: BLOOD SPECIMENOrdering Facility: [facility] Address: [address] [place] [address] Performed By: #### 5 7021-8 ####[facility]ATORYCLIA [id number] [address] STATES OF [facility] Lymphocytes/100 WBC (Bld) 5.6 % Normal [facility] Comment on above: Order Comment: Speci men Type: BLOOD SPECIMENOrdering Facility: [facility] Address: [address] [place] [address] Performed By: #### 5 7021-8 ####[facility]ORYCLIA [id number] [place] [address] [place] [facility] MCH (RBC) [Entitic mass] 29.4 pg Normal 26.0-34.0 [facility] Comment on above: Order Comment: Speci men Type: BLOOD SPECIMENOrdering Facility: [facility] Address: [address] [place] [address] Performed By: #### 5 7021-8 ####[facility]ATORYCLIA [id number] [address] MCHC (RBC) [Mass/Vol] 32.9 g/dL Normal 30.5-36.0 [facility] Comment on above: Order Comment: Speci men Type: BLOOD SPECIMENOrdering Facility: [facility] Address: [address] [place] [address] Performed By: #### 5 7021-8 ####[facility]ORYCLIA [id number] [address] [place] MCV (RBC) [Entitic vol] 89.3 fL Normal 80.0-100.0 M [facility] Comment on above: Order Comment: Speci men Type: BLOOD SPECIMENOrdering Facility: [facility] Address: [address] [place] [address] Performed By: #### 5 7021-8 ####[facility]ATORYCLIA [id number] [place] [address] [place] Monocytes (Bld) [#/Vol] 0.37 10*3/uL Normal <0.87 [facility] Comment on above: Order Comment: Speci men Type: BLOOD SPECIMENOrdering Facility: [facility] Address: [address] [place] [address] Performed By: #### 5 7021-8 ####[facility]ATORYCLIA [id number] [place] [address] [place] Monocytes/100 WBC (Bld) 3.0 % Normal [facility] Comment on above: Order Comment: Speci men Type: BLOOD SPECIMENOrdering Facility: [facility] Address: [address] [place] [address] Performed By: #### 5 7021-8 ####[facility]ATORYCLIA [id number] [place] [address] [place] Neutrophils (Bld) [#/Vol] 11.23 10*3/uL High 1.45-7.50 [facility] Comment on above: Order Comment: Speci men Type: BLOOD SPECIMENOrdering Facility: [facility] Address: [address] [place] [address] Performed By: #### 5 7021-8 ####[facility]ORATORYCLIA [id number] [place] [address] [place] Neutrophils/100 WBC (Bld) 90.5 % Normal [facility] Comment on above: Order Comment: Speci men Type: BLOOD SPECIMENOrdering Facility: [facility] Address: [address] [place] [address] Performed By: #### 5 7021-8 ####[facility]ORATORYCLIA [id number] [place] [address] [place] Nucleated RBC (Bld) [#/Vol] 10*3/uL Normal <0.01 [facility] Comment on above: Order Comment: Speci men Type: BLOOD SPECIMENOrdering Facility: [facility] Address: [address] [place] [address] Performed By: #### 5 7021-8 ####[facility]ORATORYCLIA [id number] [place] [id number] [place] Nucleated RBC/100 WBC (Bld) [Ratio] 0.0 /100 WBC Normal [facility] Comment on above: Order Comment: Speci men Type: BLOOD SPECIMENOrdering Facility: [facility] Address: [address] [place] [address] Performed By: #### 5 7021-8 ####[facility]ORATORYCLIA [id number] [place] [address] [place] Platelet mean volume (Bld) [Entitic vol] 11.2 fL Normal 9.0-12.7 [facility] Comment on above: Order Comment: Speci men Type: BLOOD SPECIMENOrdering Facility: [facility] Address: [address] [place] [address] Performed By: #### 5 7021-8 ####[facility]ORATORYCLIA [id number] [place] [address] [place] Platelets (Bld) [#/Vol] 221 10*3/uL Normal 150-400 [facility] Comment on above: Order Comment: Speci men Type: BLOOD SPECIMENOrdering Facility: [facility] Address: [address] [place] [address] Performed By: #### 5 7021-8 ####[facility]ORATORYCLIA [id number] [place] [address] [place] RBC (Bld) [#/Vol] 3.37 10*6/uL Low 3.90-5.20 [facility] Comment on above: Order Comment: Speci men Type: BLOOD SPECIMENOrdering Facility: [facility] Address: [address] [place] [address] Performed By: #### 5 7021-8 ####[facility] LABORATORYCLIA [id number] [place] [id number] [place] WBC (Bld) [#/Vol] 12.41 10*3/uL High 3.70-11.00 [facility] Comment on above: Order Comment: Speci men Type: BLOOD SPECIMENOrdering Facility: [facility] Address: [address] [address] Performed By: #### 5 7021-8 ####[facility] LABORATORYCLIA [id number] [place] [address] [place] CONSULT PROGon 08-12-2023 CONSULT PROG HNO ID: [id number] Author: OPLO HALEY MD Service: Neurology General Author Type: Physician Type: Consult Progress Note Filed: 08/12/2023 12:33 Note Text: NEUROLOGY CONSULT PROGRESS NOTE SERVICE DATE: 08/12/2023 SERVICE TIME: 12:31 PM Current Attending Provider: Ema Harrison MD Subjective Interval History: Today, Lavinia is slightly better. More coherent more talkative more awake. Family including daughter from [place] who is a parts counter clerk does not want to do much more at this point other than just keeping an eye on her. Did not want any more testing or transfer. Heme-onc should be on the case. Has metastatic kidney cancer. Undergoing chemotherapy. Objective Physical Examination: Neurological: Mental Status: Quite calm relaxed does not say much follow simple directions for the first time since I met her. Moves all extremity equally as well no significant tremor or myoclonus no nuchal rigidity New Labs: WBC Date Value 08/12/2023 12.41 k/uL 08/11/2023 8.92 k/uL 08/10/2023 11.64 k/uL 03/13/2021 5.02 k/uL 03/08/2021 6.54 k/uL 01/06/2021 6.2 K/CUMM RBC Date Value 08/12/2023 3.37 m/uL 08/11/2023 3.43 m/uL 08/10/2023 3.25 m/uL 03/13/2021 2.89 m/uL 03/08/2021 3.23 m/uL 01/06/2021 3.46 M/CU MM Platelet Count Date Value 08/12/2023 221 k/uL 08/11/2023 201 k/uL 08/10/2023 187 k/uL 03/13/2021 230 k/uL 03/08/2021 254 k/uL 01/06/2021 250 K/CU MM BUN Date Value 08/12/2023 39 mg/dL 08/11/2023 72 mg/dL 08/10/2023 49 mg/dL 03/13/2021 37 mg/dL 03/08/2021 39 mg/dL 02/10/2021 33 MG/DL Creatinine Date Value 08/12/2023 3.17 mg/dL 08/11/2023 5.82 mg/dL 08/10/2023 4.50 mg/dL 03/13/2021 2.28 mg/dL 03/08/2021 2.03 mg/dL 02/10/2021 1.83 MG/DL Creatinine (POCT) (mg/dL) Date Value 02/15/2021 2.00 CBC, Coags, BMP, Mg, Phos Recent Labs 08/12/23 0513 08/11/23 0502 08/10/23 0432 NA 134* 129* 132* K 4.4 5.3* 4.8 CHLOR 96* 93* 95* CO2 32 25 27 GLUC 166* 193* 170* CA 9.9 10.0 9.2 Liver Function, Amylase, AND Lipase Recent Labs 08/11/23 0502 TPROT 5.9* ALB 2.2* ALT 7* AST 13 ALKPHOS 72 TBILI <0.2* Impression/Recommendatio ns Kidney CA undergoing chemotherapy Encephalopathy Apathy Continue to watch. Patient's family does not want transfer or other testing. Will keep on the steroids she if she continues to improve. Paraneoplastic panel sent. Follow-up neurology 2 to 3 weeks after discharge SIGNATURE: Polo Haley MD PATIENT NAME: Lavinia Durand DATE: August 12, 2023 TIME: 12:31 PM Normal [facility] NURSING PROGon 08-12-2023 NURSING PROG HNO ID: [id number] Author: JANNETH GASPAR RN Service: Nursing Author Type: Registered Nurse Type: Nursing Progress Note Filed: 08/12/2023 17:50 Note Text: -------- Summary: enema -------- Pt had been trying to have a BM all day unsuccessfully. Soap Suds Enema given with pt lying on her side and pt had results of extra-large solid/hard stool not long after. Pt states that she feels much better and that she wants to rest now and eat supper later. Family is at the bedside. [facility] THERAPY NTon 08-12-2023 THERAPY NT HNO ID: [id number] Author: ARABELLA ROBLES PT Service: Physical Therapy Author Type: Rigging Loft Mechanic Type: Therapy (PT/OT/Speech/Resp) Filed: 08/12/2023 14:46 Note Text: -------- Attestation signed by Arabella Robles PT at 08/12/2023 2:46 PM I reviewed and agree with the documentation corresponding to this therapy visit. SIGNATURE: Arabella Robles PT DATE: August 12, 2023 TIME: 2:46 PM -------- Physical Therapy Treatment Summary SERVICE DATE: 08/12/2023 SERVICE TIME: 1130 to 1210 ROOM: [id number] PT 6 Clicks Score: 10 DISCHARGE RECOMMENDATIONS Subacute/SNF Recommended Discharge Disposition Due to: Patient requires daily, facility-based rehabilitation from at least one discipline due to:, ADL impairment resulting in caregiver dependence, decline in functional status requiring daily skilled care Recommended Discharge Equipment: To Be Determined ASSESSMENT Response to Therapy Interventions: Cognitive Deficits, Limited Participation, Low Activity Tolerance, Needs Frequent Redirection or Reinstruction Fair/poor, pt requires heavy assist and fatigues rapidly, some hypotension w/ transfers/standing bouts. Recommending SNF at discharge. PRECAUTIONS Bed/Chair Alarm, Fall Risk confused CURRENT HOSPITAL COURSE Transfer from [facility] to [facility] with altered mental status and unwitnessed fall at SNF. CT head negative. Neurology consult pending. 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 She is an unreliable historian at this time due to her confusion.) SUBJECTIVE Pt agreeable, oriented to self, delayed processing. Daughter present for session. THERAPY DIAGNOSIS Reduced mobility-other TREATMENT INTERVENTIONS Therapeutic Exercise (98961), Therapeutic Activity (42397) Timed Code Treatment (minutes): 40 Skilled Treatment Time (minutes): 40 TRAINING AND EDUCATION PROVIDED Anatomy and Impact on Deficits, Bed Mobility, Benefits of In-Hospital Mobility, Energy Conservation, Equipment, Exercise Program, Expected Functional Level, Falls Prevention, Handout Issued, Patient Exercise/Therapy Program Support Needs, Positioning, Precautions/Restrictions , Role of Physical Therapy, Sitting Balance, Transfers, Standing Balance THERAPEUTIC SKILLS USED Activity Dosing, Assessment of Tolerance Including Vitals Response to Activity, Cues for Sequencing/Proper Technique for Activity, Cuing Tactile, Cuing Verbal, Cuing Visual, Family Training, Management of Critical Lines, Tubes and/or Drains, Facilitation of Joint Range of Motion, Physical Assist, Postural Alignment Correction FUNCTIONAL STATUS Bed Mobility Supine To Sit: Moderate Assistance, Additional Information Retro and L lean in sitting, Mod A x1 for transfers. Sit to Supine: Moderate Assistance Scooting: Moderate Assistance Transfers Sit To Stand: Maximal Assistance, Additional Information Heavy assist for strength to rise, flexed posture, unsteady. Mod-Max A x1 for standing balance/support. Stand To Sit: Moderate Assistance Bed to Chair Maximal Assistance, Additional Information Bed To Chair Transfer Type: Stand Pivot Bed To Chair Transfer Equipment: Gait Belt bed > chair, chair <-> BSC. Gait Stairs Exercise Exercise: Reviewed seated BLE HEP w/ pt and daughter. Vital Signs Pulse: 79 BP: (!) 86/47 (after standing) SpO2: 95 % O2 Therapy: Room Air GOALS Patient will demonstrate understanding of importance of mobility during hospital stay and resolve all functional needs identified. Transfer Supine to/from Sit with: Supervision Transfer Sit to/from Stand with: Supervision Ambulate with: Supervision Distance: 80ft Device: Wheeled Walker Rehab Potential: Fair Progress Toward Goals: Progressing slower than expected PLAN PT Frequency: 3 Times Per Week Treatment Interventions: Education, Self Care / Home Management, Energy Conservation Training, Strengthening, Functional Mobility Training, Balance Training, Neuromuscular Re-education Plan for Next Visit: Bed Mobility, Standing Tolerance, Standing Balance, Sit to Stand Transfers, Pre-gait Activities, Exercise Instruction/Handout SIGNATURE: Fracisco Silver PTA PATIENT NAME: Lavinia Durand DATE: (more content not included)... Normal [facility] AUTOIMMUNE ENCEPHALOPATHY EV ALUATION, SERUMon 08-11-2023 AMPA-R AB CBA, S Negative Normal Negative [facility] Comment on above: Order Comment: Speci men Type: BLOOD SPECIMEN Ordering Facility: [facility] Address: [address] [place] [address] Result Comment: ADDITIONAL INFORMATION This test was developed and its performance characteristics determined by [facility] in a manner consistent with CLIA requirements. This test has not been cleared or approved by the U.S. Food and Drug Administration. Performed By: #### 5 8410-2 #### [facility] CLIA [id number] [address] [place] [address] OF [place] AMPHIPHYSIN AB Negative Normal Negative [facility] Comment on above: Order Comment: Noelle stevens Type: BLOOD SPECIMEN Ordering Facility: [facility] Address: [address] [place] [address] Result Comment: ADDITIONAL INFORMATION This test was developed and its performance characteristics determined by [facility] in a manner consistent with CLIA requirements. This test has not been cleared or approved by the U.S. Food and Drug Administration. Performed By: #### 5 8410-2 #### [facility] CLIA [id number] [address] [place] [address] ANTI-GLIAL NUCLEAR AB, TYPE 1 Negative Normal Negative [facility] Comment on above: Order Comment: Noelle stevens Type: BLOOD SPECIMEN Ordering Facility: [facility] Address: [address] [place] [address] Result Comment: ADDITIONAL INFORMATION This test was developed and its performance characteristics determined by [facility] in a manner consistent with CLIA requirements. This test has not been cleared or approved by the U.S. Food and Drug Administration. Performed By: #### 5 8410-2 #### [facility] CLIA [id number] [address] [place] [address] ANTI-NEURONAL NUC AB, TYPE 1 Negative Normal Negative [facility] Comment on above: Order Comment: Noelle stevens Type: BLOOD SPECIMEN Ordering Facility: [facility] Address: [address] [place] [address] [place] [address] Result Comment: ADDITIONAL INFORMATION This test was developed and its performance characteristics determined by [facility] in a manner consistent with CLIA requirements. This test has not been cleared or approved by the U.S. Food and Drug Administration. Performed By: #### 5 8410-2 #### [facility] CLIA [id number] [address] [place] [address] ANTI-NEURONAL NUC AB, TYPE 2 Negative Normal Negative [facility] Comment on above: Order Comment: Noelle stevens Type: BLOOD SPECIMEN Ordering Facility: [facility] Address: [address] [place] [address] Result Comment: ADDITIONAL INFORMATION This test was developed and its performance characteristics determined by [facility] in a manner consistent with CLIA requirements. This test has not been cleared or approved by the U.S. Food and Drug Administration. Performed By: #### 5 8410-2 #### [facility] CLIA [id number] [address] [place] [address] ANTI-NEURONAL NUC AB, TYPE 3 Negative Normal Negative [facility] Comment on above: Order Comment: Noelle stevens Type: BLOOD SPECIMEN Ordering Facility: [facility] Address: [address] [place] [address] Result Comment: ADDITIONAL INFORMATION This test was developed and its performance characteristics determined by [facility] in a manner consistent with CLIA requirements. This test has not been cleared or approved by the U.S. Food and Drug Administration. Performed By: #### 5 8410-2 #### [facility] CLIA [id number] [address] [place] [address] CASPR2-IGG CBA S Negative Normal Negative [facility] Comment on above: Order Comment: Noelle stevens Type: BLOOD SPECIMEN Ordering Facility: [facility] Address: [address] [place] [address] Result Comment: ADDITIONAL INFORMATION This test was developed and its performance characteristics determined by [facility] in a manner consistent with CLIA requirements. This test has not been cleared or approved by the U.S. Food and Drug Administration. Performed By: #### 5 8410-2 #### [facility] CLIA [id number] [address] [place] [address] CRMP-5, IGG Negative Normal Negative [facility] Comment on above: Order Comment: Noelle stevens Type: BLOOD SPECIMEN Ordering Facility: [facility] Address: [address] [place] [address] Result Comment: ADDITIONAL INFORMATION This test was developed and its performance characteristics determined by [facility] in a manner consistent with CLIA requirements. This test has not been cleared or approved by the U.S. Food and Drug Administration. Performed By: #### 5 8410-2 #### [facility] CLIA [id number] [address] [place] [address] DPPX AB IFA, S Negative Normal Negative [facility] Comment on above: Order Comment: Noelle stevens Type: BLOOD SPECIMEN Ordering Facility: [facility] Address: [address] [place] [address] Result Comment: ADDITIONAL INFORMATION This test was developed and its performance characteristics determined by [facility] in a manner consistent with CLIA requirements. This test has not been cleared or approved by the U.S. Food and Drug Administration. Performed By: #### 5 8410-2 #### [facility] CLIA [id number] [address] [place] [address] ENCEPHALOPATHY INTERPRETATION SEE NOTE Normal [facility] Comment on above: Order Comment: Noelle stevens Type: BLOOD SPECIMEN Ordering Facility: [facility] Address: [address] [place] [address] Result Comment: The following antibody was identified: Glutamic Acid Decarboxylase. * This profile is consistent with predisposition to thyrogastric disorders, including thyroiditis, pernicious anemia, and type 1 diabetes, but has low specificity for autoimmune encephalopathy. GAD65 antibody values less than 2.00 nM have a lower positive predictive value for neurological autoimmunity than values of 20.0 nM and higher. * Performed By: #### 5 8410-2 #### [facility] CLIA [id number] [address] [place] [address] KRUNAL-B-R AB CBA, S Negative Normal Negative [facility] Comment on above: Order Comment: Noelle stevens Type: BLOOD SPECIMEN Ordering Facility: [facility] Address: [address] [place] [address] Result Comment: ADDITIONAL INFORMATION This test was developed and its performance characteristics determined by [facility] in a manner consistent with CLIA requirements. This test has not been cleared or approved by the U.S. Food and Drug Administration. Performed By: #### 5 8410-2 #### [facility] CLIA [id number] [address] [place] [address] GAD65 ANTIBODY 0.08 nmol/L High <= 0.02 [facility] Comment on above: Order Comment: Noelle stevens Type: BLOOD SPECIMEN Ordering Facility: [facility] Address: [address] [place] [address] [place] [address] Result Comment: ADDITIONAL INFORMATION This test was developed and its performance characteristics determined by [facility] in a manner consistent with CLIA requirements. This test has not been cleared or approved by the U.S. Food and Drug Administration. Performed By: #### 5 8410-2 #### [facility] CLIA [id number] [address] [place] [address] [place] GFAP IFA, S Negative Normal Negative [facility] Comment on above: Order Comment: Noelle stevens Type: BLOOD SPECIMEN Ordering Facility: [facility] Address: [address] [place] [address] Result Comment: ADDITIONAL INFORMATION This test was developed and its performance characteristics determined by [facility] in a manner consistent with CLIA requirements. This test has not been cleared or approved by the U.S. Food and Drug Administration. Performed By: #### 5 8410-2 #### [facility] CLIA [id number] [address] [place] [address] IFA NOTES - ENCSER None. Normal [facility] Comment on above: Order Comment: Noelle stevens Type: BLOOD SPECIMEN Ordering Facility: [facility] Address: [address] [place] [address] Performed By: #### 5 8410-2 #### [facility] CLIA [id number] [address] [place] [address] [place] IGLON5 IFA, S Negative Normal Negative [facility] Comment on above: Order Comment: Noelle stevens Type: BLOOD SPECIMEN Ordering Facility: [facility] Address: [address] [place] [address] Result Comment: ADDITIONAL INFORMATION This test was developed and its performance characteristics determined by [facility] in a manner consistent with CLIA requirements. This test has not been cleared or approved by the U.S. Food and Drug Administration. Performed By: #### 5 8410-2 #### [facility] CLIA [id number] [address] [place] [address] [place] LGI1-IGG CBA SERUM Negative Normal Negative [facility] Comment on above: Order Comment: Noelle hilda Type: BLOOD SPECIMEN Ordering Facility: [facility] Address: [address] [place] [address] Result Comment: ADDITIONAL INFORMATION This test was developed and its performance characteristics determined by [facility] in a manner consistent with CLIA requirements. This test has not been cleared or approved by the U.S. Food and Drug Administration. Performed By: #### 5 8410-2 #### [facility] CLIA [id number] [address] [place] [address] MGLUR1 AB IFA, S Negative Normal Negative [facility] Comment on above: Order Comment: Noelle stevens Type: BLOOD SPECIMEN Ordering Facility: [facility] Address: [address] [place] [address] Result Comment: ADDITIONAL INFORMATION This test was developed and its performance characteristics determined by [facility] in a manner consistent with CLIA requirements. This test has not been cleared or approved by the U.S. Food and Drug Administration. Performed By: #### 5 8410-2 #### [facility] CLIA [id number] [address] [place] [address] NEUROCHONDRIN IFA , S Negative Normal Negative [facility] Comment on above: Order Comment: Noelle stevens Type: BLOOD SPECIMEN Ordering Facility: [facility] Address: [address] [place] [address] Result Comment: ADDITIONAL INFORMATION This test was developed and its performance characteristics determined by [facility] in a manner consistent with CLIA requirements. This test has not been cleared or approved by the U.S. Food and Drug Administration. Performed By: #### 5 8410-2 #### [facility] CLIA [id number] [address] [place] [address] [place] NIF IFA, S Negative Normal Negative [facility] Comment on above: Order Comment: Noelle stevens Type: BLOOD SPECIMEN Ordering Facility: [facility] Address: [address] [place] [address] Result Comment: ADDITIONAL INFORMATION This test was developed and its performance characteristics determined by [facility] in a manner consistent with CLIA requirements. This test has not been cleared or approved by the U.S. Food and Drug Administration. Performed By: #### 5 8410-2 #### [facility] CLIA [id number] [address] [place] [address] NMDA-R AB CBA, S Negative Normal Negative [facility] Comment on above: Order Comment: Noelle stevens Type: BLOOD SPECIMEN Ordering Facility: [facility] Address: [address] [place] [address] Result Comment: ADDITIONAL INFORMATION This test was developed and its performance characteristics determined by [facility] in a manner consistent with CLIA requirements. This test has not been cleared or approved by the U.S. Food and Drug Administration. Performed By: #### 5 8410-2 #### [facility] CLIA [id number] [address] [place] [address] PURKINJE CELL CYTO AB, TYPE 1 Negative Normal Negative [facility] Comment on above: Order Comment: Noelle stevens Type: BLOOD SPECIMEN Ordering Facility: [facility] Address: [address] [place] [address] Result Comment: ADDITIONAL INFORMATION This test was developed and its performance characteristics determined by [facility] in a manner consistent with CLIA requirements. This test has not been cleared or approved by the U.S. Food and Drug Administration. Performed By: #### 5 8410-2 #### [facility] CLIA [id number] [address] [place] [address] PURKINJE CELL CYTO AB, TYPE 2 Negative Normal Negative [facility] Comment on above: Order Comment: Noelle stevens Type: BLOOD SPECIMEN Ordering Facility: [facility] Address: [address] [place] [address] Result Comment: ADDITIONAL INFORMATION This test was developed and its performance characteristics determined by [facility] in a manner consistent with CLIA requirements. This test has not been cleared or approved by the U.S. Food and Drug Administration. Performed By: #### 5 8410-2 #### [facility] CLIA [id number] [address] [place] [address] PURKINJE CELL CYTO AB, TYPE TR Negative Normal Negative [facility] Comment on above: Order Comment: Noelle stevens Type: BLOOD SPECIMEN Ordering Facility: [facility] Address: [address] [place] [address] Result Comment: ADDITIONAL INFORMATION This test was developed and its performance characteristics determined by [facility] in a manner consistent with CLIA requirements. This test has not been cleared or approved by the U.S. Food and Drug Administration. Performed By: #### 5 8410-2 #### [facility] CLIA [id number] [address] [place] [address] SEPTIN-7 IFA, S Negative Normal Negative [facility] Comment on above: Order Comment: Noelle stevens Type: BLOOD SPECIMEN Ordering Facility: [facility] Address: [address] [place] [address] Result Comment: ADDITIONAL INFORMATION This test was developed and its performance characteristics determined by [facility] in a manner consistent with CLIA requirements. This test has not been cleared or approved by the U.S. Food and Drug Administration. Test Performed by: [facility] - [address] [address] [place]: Alfredito Rice M.D. Ph.D.; CLIA# [id number] Performed By: #### 5 8410-2 #### [facility] CLIA [id number] [address] [place] [address] [place] CASE MANAGEMon 08-11-2023 CASE MANAGEM HNO ID: [id number] Author: JORGE ALBERTO DYKES RN Service: General Internal Medicine Author Type: Registered Nurse Type: Care Mgt Progress Note Filed: 08/11/2023 14:39 Note Text: CARE MANAGEMENT PROGRESS NOTE SERVICE DATE: 08/11/2023 SERVICE TIME: 2:33 PM LOS: 7 days Chart reviewed. Patient from [facility] admitted for AMS, sudden encephalopathy. Neuro following. Nephro following. Hem/Onc following. Room air. Patient AANDO x1. Patient is from [facility] where she gets in house dialysis MWF. Pt can return, no precert needed. Discharge plan TBD; return to [facility] ECF v return with hospice. Pending family decision and medical clearance. SIGNATURE: Jorge Alberto Dykes RN PATIENT NAME: Lavinia Durand DATE: August 11, 2023 TIME: 2:33 PM PAGER/CONTACT #: [phone] [facility] CBC W Auto Differential pane l (Bld)on 08-11-2023 Basophils (Bld) [#/Vol] 10*3/uL Normal <0.11 [facility] Comment on above: Order Comment: Noelle stevens Type: BLOOD SPECIMEN Ordering Facility: [facility] Address: [address] [place] [address] Performed By: #### 2 4321-2, 10191-6, 25959-1, 3016-3, 86297-6, 5195-3 #### [facility] CLIA [id number] [address] [place] [address] [facility] OF [place] Basophils/100 WBC (Bld) 0.1 % Normal [facility] Comment on above: Order Comment: Noelle stevens Type: BLOOD SPECIMEN Ordering Facility: [facility] Address: [address] [place], [place] [address] Performed By: #### 2 4321-2, 57937-5, 34470-1, 3016-3, 06372-0, 5-3 #### [facility] CLIA [id number] [address] [place], [place] [id number] [place] Differential cell count method Nom (Bld) Auto Normal [facility] Comment on above: Order Comment: Speci men Type: BLOOD SPECIMEN Ordering Facility: [facility] Address: [address] [place], [place] [address] Performed By: #### 2 4321-2, 57604-4, 90429-7, 6-3, 43199-0, 5-3 #### [facility] CLIA [id number] [address] [place], [place] [address] [place] Eosinophils (Bld) [#/Vol] 10*3/uL Normal <0.46 [facility] Comment on above: Order Comment: Speci men Type: BLOOD SPECIMEN Ordering Facility: [facility] Address: [address] [place] [address] Performed By: #### 2 4321-2, 23934-7, 25491-9, 6-3, 16201-5, 5-3 #### [facility] CLIA [id number] [address] [place], [place] [address] [place] Eosinophils/100 WBC (Bld) 0.0 % Normal [facility] Comment on above: Order Comment: Speci men Type: BLOOD SPECIMEN Ordering Facility: [facility] Address: [address] [place], [place] [address] Performed By: #### 2 4321-2, 86799-1, 60239-4, 6-3, 83125-2, 5-3 #### [facility] CLIA [id number] [address] [place], [place] [address] [place] Erythrocyte distribution width (RBC) [Ratio] 15.6 % High 11.5-15.0 [facility] Comment on above: Order Comment: Speci men Type: BLOOD SPECIMEN Ordering Facility: [facility] Address: [address] [place] [address] [place] [address] Performed By: #### 2 4321-2, 60794-3, 17043-6, 3016-3, 89211-0, 5-3 #### [facility] CLIA [id number] [address] [place] [address] [place] Hematocrit (Bld) [Volume fraction] 30.6 % Low 36.0-46.0 [facility] Comment on above: Order Comment: Speci men Type: BLOOD SPECIMEN Ordering Facility: [facility] Address: [address] [place] [address] Performed By: #### 2 4321-2, 20243-4, 63669-3, 6-3, 40859-4, 5-3 #### [facility] CLIA [id number] [address] [place], [place] [address] [place] Hemoglobin (Bld) [Mass/Vol] 10.2 g/dL Low 11.5-15.5 [facility] Comment on above: Order Comment: Speci men Type: BLOOD SPECIMEN Ordering Facility: [facility] Address: [address] [place] [address] Performed By: #### 2 4321-2, 17550-9, 20511-6, 6-3, 26995-3, 5-3 #### [facility] CLIA [id number] [address] [place], [place] [address] [place] Immature granulocytes (Bld) [#/Vol] 0.08 10*3/uL Normal <0.10 [facility] Comment on above: Order Comment: Speci men Type: BLOOD SPECIMEN Ordering Facility: [facility] Address: [address] [place], [place] [address] Performed By: #### 2 4321-2, 75030-0, 44958-6, 6-3, 53430-6, 5-3 #### [facility] CLIA [id number] [address] [place], [place] [address] [place] Immature granulocytes/100 WBC (Bld) 0.9 % Normal [facility] Comment on above: Order Comment: Speci men Type: BLOOD SPECIMEN Ordering Facility: [facility] Address: [address] [place] [address] Performed By: #### 2 4321-2, 08184-2, 79887-3, 3016-3, 29298-2, 5195-3 #### [facility] CLIA [id number] [address] [place], [place] [address] [place] Lymphocytes (Bld) [#/Vol] 0.70 10*3/uL Low 1.00-4.00 [facility] Comment on above: Order Comment: Speci men Type: BLOOD SPECIMEN Ordering Facility: [facility] Address: [address] [place] [address] Performed By: #### 2 4321-2, 36890-3, 53316-4, 3016-3, 98960-8, 5-3 #### [facility] CLIA [id number] [address] [place] [address] [place] Lymphocytes/100 WBC (Bld) 7.8 % Normal [facility] Comment on above: Order Comment: Speci men Type: BLOOD SPECIMEN Ordering Facility: [facility] Address: [address] [place] [address] Performed By: #### 2 4321-2, 88281-9, 04984-2, 3016-3, 90348-6, 5-3 #### [facility] CLIA [id number] [address] [place] [address] [place] MCH (RBC) [Entitic mass] 29.7 pg Normal 26.0-34.0 [facility] Comment on above: Order Comment: Speci men Type: BLOOD SPECIMEN Ordering Facility: [facility] Address: [address] [place] [address] Performed By: #### 2 4321-2, 82206-3, 39609-2, 3016-3, 46840-6, 5195-3 #### [facility] CLIA [id number] [address] [place] [address] [place] MCHC (RBC) [Mass/Vol] 33.3 g/dL Normal 30.5-36.0 [facility] Comment on above: Order Comment: Speci men Type: BLOOD SPECIMEN Ordering Facility: [facility] Address: [address] [place] [address] Performed By: #### 2 4321-2, 78456-6, 59049-5, 6-3, 32392-9, 5-3 #### [facility] CLIA [id number] [address] [place], [place] [address] [place] MCV (RBC) [Entitic vol] 89.2 fL Normal 80.0-100.0 [facility] Comment on above: Order Comment: Speci men Type: BLOOD SPECIMEN Ordering Facility: [facility] Address: [address] [place] [address] Performed By: #### 2 4321-2, 70783-7, 29853-4, 6-3, 47999-8, 5-3 #### [facility] CLIA [id number] [address] [place], [place] [address] [place] Monocytes (Bld) [#/Vol] 0.12 10*3/uL Normal <0.87 [facility] Comment on above: Order Comment: Speci men Type: BLOOD SPECIMEN Ordering Facility: [facility] Address: [address] [place] [address] Performed By: #### 2 4321-2, 11575-5, 42542-5, 6-3, 66995-2, 5195-3 #### [facility] CLIA [id number] [address] [place], [place] [address] [place] Monocytes/100 WBC (Bld) 1.3 % Normal [facility] Comment on above: Order Comment: Speci men Type: BLOOD SPECIMEN Ordering Facility: [facility] Address: [address] [place] [address] Performed By: #### 2 4321-2, 89987-0, 89112-9, 3016-3, 41484-2, 5195-3 #### [facility] CLIA [id number] [address] [place] [address] [place] Neutrophils (Bld) [#/Vol] 8.01 10*3/uL High 1.45-7.50 [facility] Comment on above: Order Comment: Speci men Type: BLOOD SPECIMEN Ordering Facility: [facility] Address: [address] [place] [address] Performed By: #### 2 4321-2, 66164-9, 06950-0, 3016-3, 22036-8, 5195-3 #### [facility] CLIA [id number] [address] [place] [address] [place] Neutrophils/100 WBC (Bld) 89.9 % Normal [facility] Comment on above: Order Comment: Speci men Type: BLOOD SPECIMEN Ordering Facility: [facility] Address: [address] [place] [address] Performed By: #### 2 4321-2, 12914-1, 20442-2, 3016-3, 04356-5, 5195-3 #### [facility] CLIA [id number] [address] [place], [place] [address] [place] Nucleated RBC (Bld) [#/Vol] 10*3/uL Normal <0.01 [facility] Comment on above: Order Comment: Speci men Type: BLOOD SPECIMEN Ordering Facility: [facility] Address: [address] [place] [address] Performed By: #### 2 4321-2, 06720-5, 97032-5, 3016-3, 18117-4, 5195-3 #### [facility] CLIA [id number] [address] [place] [address] [place] Nucleated RBC/100 WBC (Bld) [Ratio] 0.0 /100 WBC Normal [facility] Comment on above: Order Comment: Speci men Type: BLOOD SPECIMEN Ordering Facility: [facility] Address: [address] [place] [address] Performed By: #### 2 4321-2, 16318-3, 42155-8, 3016-3, 14272-1, 5195-3 #### [facility] CLIA [id number] [address] [place], [place] [address] [place] Platelet mean volume (Bld) [Entitic vol] 10.7 fL Normal 9.0-12.7 [facility] Comment on above: Order Comment: Speci men Type: BLOOD SPECIMEN Ordering Facility: [facility] Address: [address] [place], [place] [address] Performed By: #### 2 4321-2, 58450-9, 02637-6, 3016-3, 81156-7, 5-3 #### [facility] CLIA [id number] [address] [place], [place] [address] [place] Platelets (Bld) [#/Vol] 201 10*3/uL Normal 150-400 [facility] Comment on above: Order Comment: Speci men Type: BLOOD SPECIMEN Ordering Facility: [facility] Address: [address] [place], [place] [address] Performed By: #### 2 4321-2, 38571-5, 29776-5, 3016-3, 13096-2, 5-3 #### [facility] CLIA [id number] [address] [place], [place] [address] [place] RBC (Bld) [#/Vol] 3.43 10*6/uL Low 3.90-5.20 [facility] Comment on above: Order Comment: Speci men Type: BLOOD SPECIMEN Ordering Facility: [facility] Address: [address] [place] [address] Performed By: #### 2 4321-2, 48694-0, 84989-8, 3016-3, 16295-6, 5-3 #### [facility] CLIA [id number] [address] [place] [address] [place] WBC (Bld) [#/Vol] 8.92 10*3/uL Normal 3.70-11.00 [facility] Comment on above: Order Comment: Speci men Type: BLOOD SPECIMEN Ordering Facility: [facility] Address: [facility] [place] [address] Performed By: #### 2 4321-2, 55440-1, 53721-1, 3016-3, 19857-4, 5195-3 #### [facility] CLIA [id number] [address] [place] CONSULT PROGon 08-11-2023 CONSULT PROG HNO ID: [id number] Author: POLO HALEY MD Service: Neurology General Author Type: Physician Type: Consult Progress Note Filed: 08/11/2023 13:22 Note Text: NEUROLOGY CONSULT PROGRESS NOTE SERVICE DATE: 08/11/2023 SERVICE TIME: 1:20 PM Current Attending Provider: Ema Harrison MD Subjective Interval History: Today, Lavinia is slightly worse. Less attentive. Sodium is 129 today and is pending, lowish. So far has been negative from neurology point of view. 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 Send paraneoplastic blood test. Objective Physical Examination: Neurological: Mental Status: Quiet does not speak much as she does she mumbles and does not really follow directions. Seems listless and apathetic Gross without any motor loss. No significant tremor. New Labs: WBC Date Value 08/11/2023 8.92 k/uL 08/10/2023 11.64 k/uL 08/09/2023 7.92 k/uL 03/13/2021 5.02 k/uL 03/08/2021 6.54 k/uL 01/06/2021 6.2 K/CUMM RBC Date Value 08/11/2023 3.43 m/uL 08/10/2023 3.25 m/uL 08/09/2023 3.38 m/uL 03/13/2021 2.89 m/uL 03/08/2021 3.23 m/uL 01/06/2021 3.46 M/CU MM Platelet Count Date Value 08/11/2023 201 k/uL 08/10/2023 187 k/uL 08/09/2023 179 k/uL 03/13/2021 230 k/uL 03/08/2021 254 k/uL 01/06/2021 250 K/CU MM BUN Date Value 08/11/2023 72 mg/dL 08/10/2023 49 mg/dL 08/09/2023 23 mg/dL 03/13/2021 37 mg/dL 03/08/2021 39 mg/dL 02/10/2021 33 MG/DL Creatinine Date Value 08/11/2023 5.82 mg/dL 08/10/2023 4.50 mg/dL 08/09/2023 3.04 mg/dL 03/13/2021 2.28 mg/dL 03/08/2021 2.03 mg/dL 02/10/2021 1.83 MG/DL Creatinine (POCT) (mg/dL) Date Value 02/15/2021 2.00 CBC, Coags, BMP, Mg, Phos Recent Labs 08/11/23 0502 08/10/23 0432 08/09/23 0345 NA 129* 132* 141 K 5.3* 4.8 4.0 CHLOR 93* 95* 101 CO2 25 27 30 GLUC 193* 170* 89 CA 10.0 9.2 9.5 MG -- -- 2.1 Liver Function, Amylase, AND Lipase Recent Labs 08/11/23 0502 TPROT 5.9* ALB 2.2* ALT 7* AST 13 ALKPHOS 72 TBILI <0.2* Impression/Recommendatio ns 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 SIGNATURE: Polo Haley MD PATIENT NAME: Lavinia Durand DATE: August 11, 2023 TIME: 1:20 PM Normal [facility] Comprehensive metabolic 2000 panelon 08-11-2023 Albumin [Mass/Vol] 2.2 g/dL Low 3.2-5.0 [facility] Comment on above: Order Comment: Speci men Type: BLOOD SPECIMEN Ordering Facility: [facility] Address: [address] [place] [address] Performed By: #### 2 4321-2, 16203-5, 25778-9, 3506-3, 42489-2, 5195-3 #### [facility] CLIA [id number] [address] [place] [address] [place] ALP [Catalytic activity/Vol] 72 U/L Normal 45-117 [facility] Comment on above: Order Comment: Speci men Type: BLOOD SPECIMEN Ordering Facility: [facility] Address: [address] [place] [address] Performed By: #### 2 4321-2, 14276-9, 16202-5, 3016-3, 46113-5, 5195-3 #### [facility] CLIA [id number] [address] [place], [place] [address] [place] ALT [Catalytic activity/Vol] 7 U/L Low 13-61 [facility] Comment on above: Order Comment: Speci men Type: BLOOD SPECIMEN Ordering Facility: [facility] Address: [address] [place] [address] Result Comment: Resu lts may be falsely depressed after the administration of Sulfasalazine and/or Sulfapyridine. Performed By: #### 2 4321-2, 71959-5, 41035-2, 3016-3, 67349-5, 5-3 #### [facility] CLIA [id number] [address] [place], [place] [address] [place] Anion gap [Moles/Vol] 11 mmol/L Normal 5-16 [facility] Comment on above: Order Comment: Speci men Type: BLOOD SPECIMEN Ordering Facility: [facility] Address: [address] [place] [address] Performed By: #### 2 4321-2, 84042-4, 12739-2, 3016-3, 73158-5, 5195-3 #### [facility] CLIA [id number] [address] [place], [place] [address] [place] AST [Catalytic activity/Vol] 13 U/L Normal 8-34 [facility] Comment on above: Order Comment: Speci men Type: BLOOD SPECIMEN Ordering Facility: [facility] Address: [address] [place] [address] Result Comment: Resu lts may be falsely depressed after the administration of Sulfasalazine and/or Sulfapyridine. Performed By: #### 2 4321-2, 17513-6, 95451-3, 3015-3, 82929-9, 5194-3 #### [facility] CLIA [id number] [address] [place] [address] [place] Bilirubin [Mass/Vol] mg/dL Low 0.2-1.0 [facility] Comment on above: Order Comment: Speci men Type: BLOOD SPECIMEN Ordering Facility: [facility] Address: [address] [place], [place] [address] Performed By: #### 2 4321-2, 52547-4, 42228-1, 3015-3, 85318-0, 5194-3 #### [facility] CLIA [id number] [address] [place], [place] [address] [place] Calcium [Mass/Vol] 10.0 mg/dL Normal 8.5-10.5 [facility] Comment on above: Order Comment: Speci men Type: BLOOD SPECIMEN Ordering Facility: [facility] Address: [address] [place], [place] [address] Performed By: #### 2 4321-2, 40680-5, 15300-2, 3015-3, 27662-2, 5194-3 #### [facility] CLIA [id number] [address] [place], [place] [address] [place] Chloride [Moles/Vol] 93 mmol/L Low 98-107 [facility] Comment on above: Order Comment: Speci men Type: BLOOD SPECIMEN Ordering Facility: [facility] Address: [address] [place] [address] Performed By: #### 2 4321-2, 56066-1, 51198-5, 3015-3, 09660-6, 5194-3 #### [facility] CLIA [id number] [address] [place] [address] [place] CO2 [Moles/Vol] 25 mmol/L Normal 21-32 [facility] Comment on above: Order Comment: Speci hilda Type: BLOOD SPECIMEN Ordering Facility: [facility] Address: [address] [place] [address] Performed By: #### 2 4321-2, 90181-4, 87325-7, 3016-3, 74555-0, 5195-3 #### [facility] CLIA [id number] [address] [place] [address] [place] Creatinine [Mass/Vol] 5.82 mg/dL High 0.51-0.95 [facility] Comment on above: Order Comment: Speci men Type: BLOOD SPECIMEN Ordering Facility: [facility] Address: [address] [place] [address] Result Comment: Yoly ents receiving either N-Acetylcysteine (NAC) or Metamizole prior to venipuncture, may have falsely depressed results. Performed By: #### 2 4321-2, 61828-3, 31241-9, 6-3, 60355-0, 5-3 #### [facility] CLIA [id number] [address] [place] [address] [place] [facility] Creatinine and Glomerular filtration rate.predicted panel (S/P/Bld) 7 mL/min/1.73m??? Low >=60 [facility] Comment on above: Order Comment: Noelle stevens Type: BLOOD SPECIMEN Ordering Facility: [facility] Address: [address] [place] [address] Result Comment: Isabelle mated Glomerular Filtration Rate (eGFR) is calculated using the 2020 CKD-EPI creatinine equation. This equation utilizes serum creatinine, sex, and age as parameters. The creatinine assay has traceable calibration to isotope dilution-mass spectrometry. Refer to KDIGO guidelines for clinical interpretation. In patients with unstable renal function, e.g. those with acute kidney injury, the eGFR may not accurately reflect actual GFR. Performed By: #### 2 4321-2, 59746-0, 40539-4, 3016-3, 22985-8, 5195-3 #### [facility] CLIA [id number] [address] [place] [address] [place] Glucose [Mass/Vol] 193 mg/dL High 70-100 [facility] Comment on above: Order Comment: Noelle stevens Type: BLOOD SPECIMEN Ordering Facility: [facility] Address: [address] [place] [address] Result Comment: The [place] [employer] (ADA) provides guidance for cutoff values for fasting glucose and random glucose. The ADA defines fasting as no caloric intake for at least 8 hours. Fasting plasma glucose results between 100 to 125 mg/dL indicate increased risk for diabetes (prediabetes). Fasting plasma glucose results greater than or equal to 126 mg/dL meet the criteria for diagnosis of diabetes. In the absence of unequivocal hyperglycemia, results should be confirmed by repeat testing. In a patient with classic symptoms of hyperglycemia or hyperglycemic crisis, random plasma glucose results greater than or equal to 200 mg/dL meet the criteria for diagnosis of diabetes. Reference: Standards of Medical Care in Diabetes 2016, [place] [employer]. Diabetes Care. 2016.39(Suppl 1). Results may be falsely elevated after the administration of Sulfapyridine. Results may be falsely depressed after the administration of Sulfasalazine. Performed By: #### 2 4321-2, 25821-0, 54441-4, 3016-3, 38049-6, 5195-3 #### [facility] CLIA [id number] [address] [place], [place] [address] [place] Potassium [Moles/Vol] 5.3 mmol/L High 3.5-5.1 [facility] Comment on above: Order Comment: Noelle stevens Type: BLOOD SPECIMEN Ordering Facility: [facility] Address: [address] [place] [address] Performed By: #### 2 4321-2, 39631-9, 96478-7, 3016-3, 42384-0, 5195-3 #### [facility] CLIA [id number] [address] [place] [address] [place] Protein [Mass/Vol] 5.9 g/dL Low 6.0-8.5 [facility] Comment on above: Order Comment: Noelle stevens Type: BLOOD SPECIMEN Ordering Facility: [facility] Address: [address] [place] [address] Performed By: #### 2 4321-2, 35026-5, 59996-2, 3016-3, 11484-7, 5195-3 #### [facility] CLIA [id number] [address] [place] [address] [place] Sodium [Moles/Vol] 129 mmol/L Low 136-145 [facility] Comment on above: Order Comment: Speci men Type: BLOOD SPECIMEN Ordering Facility: [facility] Address: [address] [place], [place] [address] Performed By: #### 2 4321-2, 22958-0, 70872-6, 3016-3, 93884-6, 5195-3 #### [facility] CLIA [id number] [address] [place] [address] [place] Urea nitrogen [Mass/Vol] 72 mg/dL High 7-26 [facility] Comment on above: Order Comment: Speci men Type: BLOOD SPECIMEN Ordering Facility: [facility] Address: [address] [place], [place] [address] Performed By: #### 2 4321-2, 42788-6, 97102-5, 3016-3, 95867-6, 5195-3 #### [facility] CLIA [id number] [address] [place] [address] [place] NURSING PROGon 08-11-2023 NURSING PROG HNO ID: [id number] Author: CHELI HALL RN Service: ? Author Type: Registered Nurse Type: Nursing Progress Note Filed: 08/11/2023 18:33 Note Text: Assessment completed. Patient resting comfortable after treatment completed. Coventry removed drsg applied to cannulation site. Patient net removed 1.6 liters total 2.1 liters Normal [facility] PARANEOPLAST AUTOABSon 08-10 AMPHIPHYSIN AB Negative Normal Negative [facility] Comment on above: Order Comment: Speci men Type: BLOOD SPECIMEN Ordering Facility: [facility] Address: [address] [place] [address] Result Comment: ADDITIONAL INFORMATION This test was developed and its performance characteristics determined by [facility] in a manner consistent with CLIA requirements. This test has not been cleared or approved by the [place].S. Food and Drug Administration. Performed By: #### 5 8410-2 #### [facility] CLIA [id number] [address] [place] [address] ANTI-GLIAL NUCLEAR AB, TYPE 1 Negative Normal Negative [facility] Comment on above: Order Comment: Noelle stevens Type: BLOOD SPECIMEN Ordering Facility: [facility] Address: [address] [place] [address] Result Comment: ADDITIONAL INFORMATION This test was developed and its performance characteristics determined by [facility] in a manner consistent with CLIA requirements. This test has not been cleared or approved by the U.S. Food and Drug Administration. Performed By: #### 5 8410-2 #### [facility] CLIA [id number] [address] [place] [address] ANTI-NEURONAL NUC AB, TYPE 1 Negative Normal Negative [facility] Comment on above: Order Comment: Noelle stevens Type: BLOOD SPECIMEN Ordering Facility: [facility] Address: [address] [place] [address] Result Comment: ADDITIONAL INFORMATION This test was developed and its performance characteristics determined by [facility] in a manner consistent with CLIA requirements. This test has not been cleared or approved by the U.S. Food and Drug Administration. Performed By: #### 5 8410-2 #### [facility] CLIA [id number] [address] [place] [address] ANTI-NEURONAL NUC AB, TYPE 2 Negative Normal Negative [facility] Comment on above: Order Comment: Noelle stevens Type: BLOOD SPECIMEN Ordering Facility: [facility] Address: [address] [place] [address] Result Comment: ADDITIONAL INFORMATION This test was developed and its performance characteristics determined by [facility] in a manner consistent with CLIA requirements. This test has not been cleared or approved by the U.S. Food and Drug Administration. Performed By: #### 5 8410-2 #### [facility] CLIA [id number] [address] [place] [address] [place] ANTI-NEURONAL NUC AB, TYPE 3 Negative Normal Negative [facility] Comment on above: Order Comment: Noelle hilda Type: BLOOD SPECIMEN Ordering Facility: [facility] Address: [address] [place] [address] Result Comment: ADDITIONAL INFORMATION This test was developed and its performance characteristics determined by [facility] in a manner consistent with CLIA requirements. This test has not been cleared or approved by the U.S. Food and Drug Administration. Performed By: #### 5 8410-2 #### [facility] CLIA [id number] [address] [place] [address] [place] CA CHAIN BIND AB, P/Q (LAMBRT) 0.10 nmol/L High <=0.02 [facility] Comment on above: Order Comment: Alonzoal stevens Type: BLOOD SPECIMEN Ordering Facility: [facility] Address: [address] [place] [address] Result Comment: ADDITIONAL INFORMATION This test was developed and its performance characteristics determined by [facility] in a manner consistent with CLIA requirements. This test has not been cleared or approved by the U.S. Food and Drug Administration. Performed By: #### 5 8410-2 #### [facility] CLIA [id number] [address] [place] [address] [place] CRMP-5, IGG Negative Normal Negative [facility] Comment on above: Order Comment: Noelle stevens Type: BLOOD SPECIMEN Ordering Facility: [facility] Address: [address] [place] [address] Result Comment: ADDITIONAL INFORMATION This test was developed and its performance characteristics determined by [facility] in a manner consistent with CLIA requirements. This test has not been cleared or approved by the U.S. Food and Drug Administration. Performed By: #### 5 8410-2 #### [facility] CLIA [id number] [address] [place] [address] [place] IFA NOTES - PARNEO None. Normal [facility] Comment on above: Order Comment: Noelle stevens Type: BLOOD SPECIMEN Ordering Facility: [facility] Address: [address] [place] [address] Performed By: #### 5 8410-2 #### [facility] CLIA [id number] [address] [place] [address] [place] INTERP COMMENT (PARNEO/NOEVAL) SEE NOTE [facility] Comment on above: Order Comment: Noelle stevens Type: BLOOD SPECIMEN Ordering Facility: [facility] Address: [address] [place] [address] Result Comment: The following antibody was identified: Calcium Channel Binding Antibody, P/Q-type. * This profile, in the proper clinical context, would support neurological autoimmunity. * The positive predictive value for an autoimmune neurological diagnosis (Lambert-Eaton syndrome or diverse encephalomyeloneuropathic phenotypes) among patients with positive values for P/Q -type calcium channel antibodies 0.10-0.99 nM is 24%. * The positive predictive value for a cancer diagnosis (diverse types) among patients positive for P/Q-type calcium channel antibody is 21%; approximately 18% are historical neoplasms, and 3% are detected prospectively. * References: Jj NL, Daniel VA, Mariana SALCEDO, Federico RUBY, Rabia GAMBLE, Hieu Altman. P/Q- and N-type calcium-channel antibodies: Oncological, neurological, and serological accompaniments. Muscle Nerve. 2016;54:220-7. * Performed By: #### 5 8410-2 #### [facility] CLIA [id number] [address] [place] [address] OF [facility] NEURONAL V-G K+ CHANNEL AB 0.00 nmol/L Normal <=0.02 [facility] Comment on above: Order Comment: Noelle stevens Type: BLOOD SPECIMEN Ordering Facility: [facility] Address: [address] [place] [address] Result Comment: ADDITIONAL INFORMATION This test was developed and its performance characteristics determined by [facility] in a manner consistent with CLIA requirements. This test has not been cleared or approved by the U.S. Food and Drug Administration. Performed By: #### 5 8410-2 #### [facility] CLIA [id number] [address] [place] [address] PURKINJE CELL CYTO AB, TYPE 1 Negative Normal Negative [facility] Comment on above: Order Comment: oNelle stevens Type: BLOOD SPECIMEN Ordering Facility: [facility] Address: [address] [place] [address] Result Comment: ADDITIONAL INFORMATION This test was developed and its performance characteristics determined by [facility] in a manner consistent with CLIA requirements. This test has not been cleared or approved by the U.S. Food and Drug Administration. Performed By: #### 5 8410-2 #### [facility] CLIA [id number] [address] [place] [address] PURKINJE CELL CYTO AB, TYPE 2 Negative Normal Negative [facility] Comment on above: Order Comment: Noelle [facility] Type: BLOOD SPECIMEN Ordering Facility: [facility] Address: [address] [place], [place] [address] [id number] Result Comment: ADDITIONAL INFORMATION This test was developed and its performance characteristics determined by [facility] in a manner consistent with CLIA requirements. This test has not been cleared or approved by the U.S. Food and Drug Administration. Performed By: #### 5 8410-2 #### [facility] CLIA [id number] [address] [place] [address] [place] PURKINJE CELL CYTO AB, TYPE TR Negative Normal Negative [facility] Comment on above: Order Comment: Noelle stevens Type: BLOOD SPECIMEN Ordering Facility: [facility] Address: [address] [place], [place] [address] [address] Result Comment: ADDITIONAL INFORMATION This test was developed and its performance characteristics determined by [facility] in a manner consistent with CLIA requirements. This test has not been cleared or approved by the U.S. Food and Drug Administration. Test Performed by: [facility] - [address] [address] [place]: Alfredito Rice M.D. Ph.D.; CLIA# [id number] Performed By: #### 5 8410-2 #### [facility] CLIA [id number] [address] [place] [address] [place] THERAPY NTon 08-11-2023 THERAPY NT HNO ID: [id number] Author: NIKUNJ SALGUERO OTA/L Service: Occupational Therapy Author Type: Rug Sizer Type: Therapy (PT/OT/Speech/Resp) Filed: 08/11/2023 15:11 Note Text: -------- Attestation signed by Ade Elam OTR/L at 08/11/2023 3:51 PM I reviewed and agree with the documentation corresponding to this therapy visit. SIGNATURE: VELIA Dudley DATE: August 11, 2023 TIME: 3:51 PM -------- OCCUPATIONAL THERAPY MISSED VISIT SERVICE DATE: 08/11/2023 SERVICE TIME: 1509 ROOM: [place] [id number] (MR DIALYSIS) Patient not seen due to Patient Not Available (Pt off the floor-Dialysis). SIGNATURE: MIGUEL Shell PATIENT NAME: Lavinia Durand DATE: August 11, 2023 TIME: 3:11 PM Normal [facility] Basic metabolic 2000 panelon 08-10-2023 Anion gap [Moles/Vol] 10 mmol/L Normal 5-16 [facility] Comment on above: Order Comment: Noelle stevens Type: BLOOD SPECIMEN Ordering Facility: [facility] Address: [address] [place] [address] Performed By: #### 2 4321-2, 44060-5, 74240-6, 6-3, 54409-9, 5195-3 #### [facility] CLIA [id number] [address] [place] [address] [place] Calcium [Mass/Vol] 9.2 mg/dL Normal 8.5-10.5 [facility] Comment on above: Order Comment: Noelle stevens Type: BLOOD SPECIMEN Ordering Facility: [facility] Address: [address] [place], [place] [address] Performed By: #### 2 4321-2, 73506-9, 35071-6, 6-3, 59003-0, 5195-3 #### [facility] CLIA [id number] [address] [place], [place] [address] [place] Chloride [Moles/Vol] 95 mmol/L Low 98-107 [facility] Comment on above: Order Comment: Speci men Type: BLOOD SPECIMEN Ordering Facility: [facility] Address: [address] [place] [address] Performed By: #### 2 4321-2, 83090-2, 13361-9, 3016-3, 71873-6, 5195-3 #### [facility] CLIA [id number] [address] [place], [place] [address] [place] CO2 [Moles/Vol] 27 mmol/L Normal 21-32 [facility] Comment on above: Order Comment: Speci men Type: BLOOD SPECIMEN Ordering Facility: [facility] Address: [address] [place] [address] Performed By: #### 2 4321-2, 12313-9, 56634-1, 3016-3, 61137-2, 5-3 #### [facility] CLIA [id number] [address] [place], [place] [address] [place] Creatinine [Mass/Vol] 4.50 mg/dL High 0.51-0.95 [facility] Comment on above: Order Comment: Speci men Type: BLOOD SPECIMEN Ordering Facility: [facility] Address: [address] [place] [address] Result Comment: Yoly ents receiving either N-Acetylcysteine (NAC) or Metamizole prior to venipuncture, may have falsely depressed results. Performed By: #### 2 4321-2, 15241-0, 45969-2, 3016-3, 44145-7, 5195-3 #### [facility] CLIA [id number] [address] [place], [place] [address] [place] Creatinine and Glomerular filtration rate.predicted panel (S/P/Bld) 9 mL/min/1.73m??? Low >=60 [facility] Comment on above: Order Comment: Speci men Type: BLOOD SPECIMEN Ordering Facility: [facility] Address: [address] [place], [place] [address] Result Comment: Isabelle mated Glomerular Filtration Rate (eGFR) is calculated using the 2020 CKD-EPI creatinine equation. This equation utilizes serum creatinine, sex, and age as parameters. The creatinine assay has traceable calibration to isotope dilution-mass spectrometry. Refer to KDIGO guidelines for clinical interpretation. In patients with unstable renal function, e.g. those with acute kidney injury, the eGFR may not accurately reflect actual GFR. Performed By: #### 2 4321-2, 69539-5, 63511-7, 6-3, 45046-8, 5-3 #### [facility] CLIA [id number] [address] [place], [place] [address] [place] Glucose [Mass/Vol] 170 mg/dL High 70-100 [facility] Comment on above: Order Comment: Speci men Type: BLOOD SPECIMEN Ordering Facility: [facility] Address: [address] [place] [address] Result Comment: The [place] Diabetes [employer] (ADA) provides guidance for cutoff values for fasting glucose and random glucose. The ADA defines fasting as no caloric intake for at least 8 hours. Fasting plasma glucose results between 100 to 125 mg/dL indicate increased risk for diabetes (prediabetes). Fasting plasma glucose results greater than or equal to 126 mg/dL meet the criteria for diagnosis of diabetes. In the absence of unequivocal hyperglycemia, results should be confirmed by repeat testing. In a patient with classic symptoms of hyperglycemia or hyperglycemic crisis, random plasma glucose results greater than or equal to 200 mg/dL meet the criteria for diagnosis of diabetes. Reference: Standards of Medical Care in Diabetes 2016, [place] [employer]. Diabetes Care. 2016.39(Suppl 1). Results may be falsely elevated after the administration of Sulfapyridine. Results may be falsely depressed after the administration of Sulfasalazine. Performed By: #### 2 4321-2, 25901-1, 07898-7, 6-3, 48969-3, 5-3 #### [facility] CLIA [id number] [address] [place], [place] [address] [place] Potassium [Moles/Vol] 4.8 mmol/L Normal 3.5-5.1 [facility] Comment on above: Order Comment: Speci men Type: BLOOD SPECIMEN Ordering Facility: [facility] Address: [address] [place] [address] Performed By: #### 2 4321-2, 88020-4, 31332-9, 3016-3, 63736-1, 5195-3 #### [facility] CLIA [id number] [address] [place], [place] [address] [place] Sodium [Moles/Vol] 132 mmol/L Low 136-145 [facility] Comment on above: Order Comment: Speci men Type: BLOOD SPECIMEN Ordering Facility: [facility] Address: [address] [place] [address] Performed By: #### 2 4321-2, 86735-7, 42899-0, 6-3, 32198-5, 5-3 #### [facility] CLIA [id number] [address] [place], [place] [address] [place] Urea nitrogen [Mass/Vol] 49 mg/dL High 11-20 [facility] Comment on above: Order Comment: Speci men Type: BLOOD SPECIMEN Ordering Facility: [facility] Address: [address] [place] [address] Performed By: #### 2 4321-2, 25735-5, 59793-7, 6-3, 23485-5, 5-3 #### [facility] CLIA [id number] [address] [place], [place] [address] [place] CBC W Auto Differential pane l (Bld)on 08-10-2023 Basophils (Bld) [#/Vol] 0.04 10*3/uL Normal <0.11 [facility] Comment on above: Order Comment: Speci men Type: BLOOD SPECIMEN Ordering Facility: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 Glucose [Mass/Vol] 89 mg/dL Normal 70-100 [facility] Comment on above: Order Comment: Noelle stevens Type: BLOOD SPECIMEN Ordering Facility: [facility] Address: [address] [place] [address] Result Comment: The [place] Diabetes [employer] (ADA) provides guidance for cutoff values for fasting glucose and random glucose. The ADA defines fasting as no caloric intake for at least 8 hours. Fasting plasma glucose results between 100 to 125 mg/dL indicate increased risk for diabetes (prediabetes). Fasting plasma glucose results greater than or equal to 126 mg/dL meet the criteria for diagnosis of diabetes. In the absence of unequivocal hyperglycemia, results should be confirmed by repeat testing. In a patient with classic symptoms of hyperglycemia or hyperglycemic crisis, random plasma glucose results greater than or equal to 200 mg/dL meet the criteria for diagnosis of diabetes. Reference: Standards of Medical Care in Diabetes 2016, [place] [employer]. Diabetes Care. 2016.39(Suppl 1). Results may be falsely elevated after the administration of Sulfapyridine. Results may be falsely depressed after the administration of Sulfasalazine. Performed By: #### 2 4321-2, 25075-0, 12552-0, 6-3, 64812-6, 5-3 #### [facility] CLIA [id number] [address] [place], [place] [address] [place] Potassium [Moles/Vol] 4.0 mmol/L Normal 3.5-5.1 [facility] Comment on above: Order Comment: Speci men Type: BLOOD SPECIMEN Ordering Facility: [facility] Address: [address] [place] [address] Performed By: #### 2 4321-2, 38481-2, 04256-7, 3015-3, 32737-3, 5194-3 #### [facility] CLIA [id number] [address] [place] [address] [place] Sodium [Moles/Vol] 141 mmol/L Normal 136-145 [facility] Comment on above: Order Comment: Speci men Type: BLOOD SPECIMEN Ordering Facility: [facility] Address: [address] [place] [address] Performed By: #### 2 4321-2, 55868-5, 10248-0, 3015-3, 77941-6, 5194-3 #### [facility] CLIA [id number] [address] [place], [place] [address] [place] Urea nitrogen [Mass/Vol] 23 mg/dL Normal 7-26 [facility] Comment on above: Order Comment: Speci men Type: BLOOD SPECIMEN Ordering Facility: [facility] Address: [address] [place] [address] Performed By: #### 2 4321-2, 76339-2, 83514-9, 6-3, 30086-9, 5194-3 #### [facility] CLIA [id number] [address] [place], [place] [address] [place] C3 SerPl-mCncon 08-09-2023 Complement C3 [Mass/Vol] 130 mg/dL Normal 86-166 [facility] Comment on above: Order Comment: Speci men Type: BLOOD SPECIMENOrdering Facility: [facility] Address: [address] [place], [place] [address] Performed By: #### 4 485-9, 4498-2 ####[facility] [id number] [address] [address] [place] C4 SerPl-mCncon 08-09-2023 Complement C4 [Mass/Vol] 33 mg/dL Normal 13-46 [facility] Comment on above: Order Comment: Speci men Type: BLOOD SPECIMENOrdering Facility: [facility] Address: [address] [place] [address] Performed By: #### 4 485-9, 4498-2 ####[facility] [id number] [place] [id number] [place] CBC W Auto Differential pane l (Bld)on 08-09-2023 Basophils (Bld) [#/Vol] 0.03 10*3/uL Normal <0.11 [facility] Comment on above: Order Comment: Speci men Type: BLOOD SPECIMEN Ordering Facility: [facility] Address: [address] [place] [address] Performed By: #### 2 4321-2, 22122-9, 75210-4, 6-3, 85838-8, 5-3 #### [facility] CLIA [id number] [address] [place], [place] [address] [place] Basophils/100 WBC (Bld) 0.4 % Normal [facility] Comment on above: Order Comment: Speci men Type: BLOOD SPECIMEN Ordering Facility: [facility] Address: [address] [place] [address] Performed By: #### 2 4321-2, 57647-7, 53735-9, 3016-3, 95013-3, 5195-3 #### [facility] CLIA [id number] [address] [place], [place] [address] [place] Differential cell count method Nom (Bld) Auto Normal [facility] Comment on above: Order Comment: Speci men Type: BLOOD SPECIMEN Ordering Facility: [facility] Address: [address] [place] [address] Performed By: #### 2 4321-2, 31673-0, 80712-9, 3016-3, 12854-2, 5195-3 #### [facility] CLIA [id number] [address] [place], [place] [address] [place] Eosinophils (Bld) [#/Vol] 0.10 10*3/uL Normal <0.46 [facility] Comment on above: Order Comment: Speci men Type: BLOOD SPECIMEN Ordering Facility: [facility] Address: [address] [place] [address] Performed By: #### 2 4321-2, 22364-3, 94973-4, 6-3, 42714-6, 5-3 #### [facility] CLIA [id number] [address] [place], [place] [address] [place] Eosinophils/100 WBC (Bld) 1.3 % Normal [facility] Comment on above: Order Comment: Speci men Type: BLOOD SPECIMEN Ordering Facility: [facility] Address: [address] [place] [address] Performed By: #### 2 4321-2, 75699-0, 15160-9, 6-3, 53947-2, 5-3 #### [facility] CLIA [id number] [address] [place], [place] [address] [place] Erythrocyte distribution width (RBC) [Ratio] 16.1 % High 11.5-15.0 [facility] Comment on above: Order Comment: Speci men Type: BLOOD SPECIMEN Ordering Facility: [facility] Address: [address] [place] [address] Performed By: #### 2 4321-2, 55352-4, 02043-2, 3016-3, 70224-6, 5-3 #### [facility] CLIA [id number] [address] [place], [place] [address] [place] Hematocrit (Bld) [Volume fraction] 30.1 % Low 36.0-46.0 [facility] Comment on above: Order Comment: Speci men Type: BLOOD SPECIMEN Ordering Facility: [facility] Address: [address] [place] [address] Performed By: #### 2 4321-2, 84180-4, 29988-6, 3016-3, 40778-3, 5195-3 #### [facility] CLIA [id number] [address] [place], [place] [address] [place] Hemoglobin (Bld) [Mass/Vol] 10.2 g/dL Low 11.5-15.5 [facility] Comment on above: Order Comment: Speci men Type: BLOOD SPECIMEN Ordering Facility: [facility] Address: [address] [place] [address] Performed By: #### 2 4321-2, 23855-4, 85272-5, 3016-3, 49992-0, 5-3 #### [facility] CLIA [id number] [address] [place], [place] [address] [place] Immature granulocytes (Bld) [#/Vol] 0.06 10*3/uL Normal <0.10 [facility] Comment on above: Order Comment: Speci men Type: BLOOD SPECIMEN Ordering Facility: [facility] Address: [address] [place] [address] Performed By: #### 2 4321-2, 09831-3, 26494-0, 3016-3, 95384-2, 5195-3 #### [facility] CLIA [id number] [address] [place], [place] [address] [place] Immature granulocytes/100 WBC (Bld) 0.8 % Normal [facility] Comment on above: Order Comment: Speci men Type: BLOOD SPECIMEN Ordering Facility: [facility] Address: [address] [place] [address] Performed By: #### 2 4321-2, 57657-1, 93865-2, 3016-3, 27627-8, 5195-3 #### [facility] CLIA [id number] [address] [place] [address] [place] Lymphocytes (Bld) [#/Vol] 1.10 10*3/uL Normal 1.00-4.00 [facility] Comment on above: Order Comment: Speci men Type: BLOOD SPECIMEN Ordering Facility: [facility] Address: [address] [place] [address] Performed By: #### 2 4321-2, 07297-8, 94982-1, 6-3, 32447-4, 5195-3 #### [facility] CLIA [id number] [address] [place], [place] [address] [place] Lymphocytes/100 WBC (Bld) 13.9 % Normal [facility] Comment on above: Order Comment: Speci men Type: BLOOD SPECIMEN Ordering Facility: [facility] Address: [address] [place] [address] Performed By: #### 2 4321-2, 15748-0, 63860-8, 6-3, 96629-8, 5-3 #### [facility] CLIA [id number] [address] [place], [place] [address] [place] MCH (RBC) [Entitic mass] 30.2 pg Normal 26.0-34.0 [facility] Comment on above: Order Comment: Speci men Type: BLOOD SPECIMEN Ordering Facility: [facility] Address: [address] [place] [address] Performed By: #### 2 4321-2, 96518-0, 71662-3, 6-3, 75081-4, 5195-3 #### [facility] CLIA [id number] [address] [place], [place] [address] [place] MCHC (RBC) [Mass/Vol] 33.9 g/dL Normal 30.5-36.0 [facility] Comment on above: Order Comment: Speci men Type: BLOOD SPECIMEN Ordering Facility: [facility] Address: [address] [place] [address] Performed By: #### 2 4321-2, 52622-0, 48859-4, 3016-3, 89344-7, 5195-3 #### [facility] CLIA [id number] [address] [place] [address] [place] MCV (RBC) [Entitic vol] 89.1 fL Normal 80.0-100.0 [facility] Comment on above: Order Comment: Speci men Type: BLOOD SPECIMEN Ordering Facility: [facility] Address: [address] [place] [address] Performed By: #### 2 4321-2, 40220-9, 17637-2, 3016-3, 44345-3, 5195-3 #### [facility] CLIA [id number] [address] [place], [place] [address] [place] Monocytes (Bld) [#/Vol] 0.65 10*3/uL Normal <0.87 [facility] Comment on above: Order Comment: Speci men Type: BLOOD SPECIMEN Ordering Facility: [facility] Address: [address] [place] [address] Performed By: #### 2 4321-2, 84274-4, 70684-4, 3016-3, 81146-7, 5195-3 #### [facility] CLIA [id number] [address] [place], [place] [address] [place] Monocytes/100 WBC (Bld) 8.2 % Normal [facility] Comment on above: Order Comment: Speci men Type: BLOOD SPECIMEN Ordering Facility: [facility] Address: [address] [place] [address] Performed By: #### 2 4321-2, 82753-4, 52319-1, 3016-3, 26035-5, 5195-3 #### [facility] CLIA [id number] [address] [place], [place] [address] [place] Neutrophils (Bld) [#/Vol] 5.98 10*3/uL Normal 1.45-7.50 [facility] Comment on above: Order Comment: Speci men Type: BLOOD SPECIMEN Ordering Facility: [facility] Address: [address] [place], [place] [address] Performed By: #### 2 4321-2, 89209-4, 34244-1, 3016-3, 35343-8, 5-3 #### [facility] CLIA [id number] [address] [place], [place] [address] [place] Neutrophils/100 WBC (Bld) 75.4 % Normal [facility] Comment on above: Order Comment: Speci men Type: BLOOD SPECIMEN Ordering Facility: [facility] Address: [address] [place], [place] [address] Performed By: #### 2 4321-2, 24811-2, 08305-1, 6-3, 96602-8, 5-3 #### [facility] CLIA [id number] [address] [place], [place] [address] [place] Nucleated RBC (Bld) [#/Vol] 10*3/uL Normal <0.01 [facility] Comment on above: Order Comment: Speci men Type: BLOOD SPECIMEN Ordering Facility: [facility] Address: [address] [place] [address] Performed By: #### 2 4321-2, 72172-5, 07745-7, 6-3, 82275-0, 5194-3 #### [facility] CLIA [id number] [address] [place], [place] [address] [place] Nucleated RBC/100 WBC (Bld) [Ratio] 0.0 /100 WBC Normal [facility] Comment on above: Order Comment: Speci men Type: BLOOD SPECIMEN Ordering Facility: [facility] Address: [address] [place], [place] [address] Performed By: #### 2 4321-2, 95210-4, 19379-1, 6-3, 42812-8, 5-3 #### [facility] CLIA [id number] [address] [place], [place] [address] [place] Platelet mean volume (Bld) [Entitic vol] 10.5 fL Normal 9.0-12.7 [facility] Comment on above: Order Comment: Speci men Type: BLOOD SPECIMEN Ordering Facility: [facility] Address: [address] [place] [address] [place] [address] Performed By: #### 2 4321-2, 55936-8, 28131-4, 3016-3, 51589-7, 5195-3 #### [facility] CLIA [id number] [address] [place] [address] [place] Platelets (Bld) [#/Vol] 179 10*3/uL Normal 150-400 [facility] Comment on above: Order Comment: Speci men Type: BLOOD SPECIMEN Ordering Facility: [facility] Address: [address] [place] [address] Performed By: #### 2 4321-2, 06543-4, 33935-1, 3016-3, 98376-9, 5195-3 #### [facility] CLIA [id number] [address] [place], [place] [address] [place] RBC (Bld) [#/Vol] 3.38 10*6/uL Low 3.90-5.20 [facility] Comment on above: Order Comment: Speci men Type: BLOOD SPECIMEN Ordering Facility: [facility] Address: [address] [place], [place] [address] Performed By: #### 2 4321-2, 31541-3, 62806-2, 3016-3, 42105-6, 5195-3 #### [facility] CLIA [id number] [address] [place], [place] [address] [place] WBC (Bld) [#/Vol] 7.92 10*3/uL Normal 3.70-11.00 [facility] Comment on above: Order Comment: Speci men Type: BLOOD SPECIMEN Ordering Facility: [facility] Address: [address] [place], [place] [address] Performed By: #### 2 4321-2, 42744-2, 19823-9, 3016-3, 48333-1, 5195-3 #### [facility] CLIA [id number] [address] CEA SerPl-mCncon 08-09-2023 Carcinoembryonic Ag [Mass/Vol] 2.2 ng/mL Normal <=2.5 [facility] Comment on above: Order Comment: Speci men Type: BLOOD SPECIMEN Ordering Facility: [facility] Address: [address] [place] [address] Result Comment: This is a new methodology for this marker. Tumor markers obtained from different assay methods cannot be used interchangeably. Expect results of this assay to run lower than the previous assay. It is recommended to re-baseline patients when changing to a new methodology. Performed By: #### 2 4321-2, 18433-2, 14150-6, 3016-3, 39262-0, 5195-3 #### [facility] CLIA [id number] [address] [id number] [facility] [place] CONSULT PROGon 08-09-2023 CONSULT PROG HNO ID: [id number] Author: POLO HALEY MD Service: Neurology General Author Type: Physician Type: Consult Progress Note Filed: 08/09/2023 13:51 Note Text: NEUROLOGY CONSULT PROGRESS NOTE SERVICE DATE: 08/09/2023 SERVICE TIME: 12:33 PM Current Attending Provider: Eam Harrison MD Subjective Interval History: Today, Lavinia is not improved. Even a little bit worse than when she first came in. Very quiet and listless. Workup so far per neurology is okay except for EEG diffuse low, MRI brain okay spinal tap negative. She denies a headache. B12 TSH and ammonia okay Spoke to her daughter again today. I am a little perplexed as to the cause of her encephalopathy. It all started about 2 weeks ago when she was in a [facility] for UTI and elevated blood pressure. Eventually improved and went to [facility]. Then came here because of no improvement and worsening mental status. Here no causes been ascertained. The fact that is subacute I wonder about a paraneoplastic syndrome. Will check a sedimentation rate and maybe order paraneoplastic panel. According to the daughter she has no neck pain and no headaches. Hemodialysis with chronic renal insufficiency and rheumatoid arthritis. Objective Physical Examination: Neurological: Mental Status: Does not say much. When she does speak she mumbles. Apathetic Does not really follow directions Would say that she is confused New Labs: WBC Date Value 08/09/2023 7.92 k/uL 08/08/2023 9.93 k/uL 08/07/2023 9.08 k/uL 03/13/2021 5.02 k/uL 03/08/2021 6.54 k/uL 01/06/2021 6.2 K/CUMM RBC Date Value 08/09/2023 3.38 m/uL 08/08/2023 3.39 m/uL 08/07/2023 3.56 m/uL 03/13/2021 2.89 m/uL 03/08/2021 3.23 m/uL 01/06/2021 3.46 M/CU MM Platelet Count Date Value 08/09/2023 179 k/uL 08/08/2023 160 k/uL 08/07/2023 138 k/uL 03/13/2021 230 k/uL 03/08/2021 254 k/uL 01/06/2021 250 K/CU MM BUN Date Value 08/09/2023 23 mg/dL 08/08/2023 41 mg/dL 08/07/2023 25 mg/dL 03/13/2021 37 mg/dL 03/08/2021 39 mg/dL 02/10/2021 33 MG/DL Creatinine Date Value 08/09/2023 3.04 mg/dL 08/08/2023 5.22 mg/dL 08/07/2023 3.90 mg/dL 03/13/2021 2.28 mg/dL 03/08/2021 2.03 mg/dL 02/10/2021 1.83 MG/DL Creatinine (POCT) (mg/dL) Date Value 02/15/2021 2.00 CBC, Coags, BMP, Mg, Phos Recent Labs 08/09/23 0345 08/08/23 0442 08/07/23 0332 NA 141 133* 137 K 4.0 5.0 4.2 CHLOR 101 98 100 CO2 30 24 27 GLUC 89 131* 127* CA 9.5 9.5 9.2 MG 2.1 2.0 -- Impression/Recommendatio ns 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 Consider transfer to [facility]. Wonder about a tumor or cancer causing a paraneoplastic syndrome. Cussed with family members SIGNATURE: Polo Haley MD PATIENT NAME: Lavinia Durand DATE: August 09, 2023 TIME: 12:33 PM [facility] CONSULT PROG HNO ID: [id number] Author: OMID LEOS MD Service: ? Author Type: Physician Type: Consult Progress Note Filed: 08/09/2023 08:08 Note Text: CONSULT PROGRESS NOTE NEPHROLOGY SERVICE SERVICE DATE: 08/09/2023 SERVICE TIME: 8:06 AM Subjective INTERVAL HISTORY: pt mumbling Speech difficult to understand Said her gallbladder hurts? Appears comfortable MEDICATIONS: Current Medications Reviewed Objective PHYSICAL EXAM: BP 199/88 Pulse 86 Temp 36.7 ?C (98.1 ?F) (Axillary) Resp 18 Ht 152.4 cm (5') Wt 44.3 kg (97 lb 9.6 oz) SpO2 100% BMI 19.06 kg/m? Intake/Output Summary (Last 24 hours) at 08/09/2023 0806 Last data filed at 08/09/2023 0611 Gross per 24 hour Intake 700 ml Output 2500 ml Net -1800 ml Constitutional: No acute distress, Responsive, Poorly responsive, Normal habitus, and Well-nourished Neck: Trachea midline No jugular venous distension Cardiovascular: Regular rate and rhythm, normal S1 and S2, no murmurs, rubs, or gallops No peripheral edema Respiratory: Normal respiratory effort. Lungs clear bilaterally. Abdomen: Soft, non-tender, non-distended. Normal bowel sounds. No hepatosplenomegaly. Psychiatric: Alert and oriented x self, place, time, and setting Normal mood/affect DATA: Diagnostic tests reviewed for today's visit: Most recent labs and imaging results. Recent Labs 08/09/23 0345 08/08/23 0442 08/07/23 0332 08/06/23 0313 08/05/23 0352 NA 141 133* 137 133* 134* K 4.0 5.0 4.2 5.2* 4.8 CHLOR 101 98 100 98 100 CO2 30 24 27 24 27 BUN 23 41* 25 55* 44* CREAT 3.04* 5.22* 3.90* 6.28* 5.01* GLUC 89 131* 127* 97 95 ANION 10 11 10 11 7 CA 9.5 9.5 9.2 9.7 9.9 P -- -- -- 7.5* -- MG 2.1 2.0 -- 2.0 1.9 Recent Labs 08/09/23 0345 08/08/23 0442 08/07/23 0333 WBC 7.92 9.93 9.08 HB 10.2* 9.9* 10.4* HCT 30.1* 30.0* 31.6* PLT 179 160 138* Assessment/Plan 82 year old female who presents with encephalopathy. 1. Encephalopathy - ? Etiology 2. Esrd - dialysis mwf 2. Anemia - hemoglobin stable 3. Weakness 4. Htn- bp up this morning Meds and monitor PLAN 1. SIGNATURE: Omid Leos MD PATIENT NAME: Lavinia Durand DATE: August 09, 2023 TIME: 8:06 AM Normal [facility] Cancer Ag125 SerPl-aCncon Cancer Ag 125 Qn 19 [arb'U]/mL Normal 0-35 [facility] Comment on above: Order Comment: Speci hilda Type: BLOOD SPECIMEN Ordering Facility: [facility] Address: [address] [place] [address] Result Comment: This is a new methodology for this marker. Tumor markers obtained from different assay methods cannot be used interchangeably. Expect results of this assay to run lower than the previous assay. It is recommended to re-baseline patients when changing to a new methodology. Performed By: #### 2 4321-2, 29949-4, 97040-9, 3016-3, 07713-3, 5195-3 #### [facility] CLIA [id number] [address] [place] [address] [place] Cancer Ag19-9 SerPl-aCncon 0 08-09-2023 Cancer Ag 19-9 Qn 16.0 [arb'U]/mL Normal <36.0 [facility] Comment on above: Order Comment: Noelle stevens Type: BLOOD SPECIMEN Ordering Facility: [facility] Address: [address] [id number] Result Comment: Can er antigen 19-9 test is used as an aid in monitoring response to treatment or recurrence in patients with established pancreatic, hepatobiliary, or gastrointestinal malignancies. Clinical correlation is required. The CA 19-9 Antigen test was performed using the [employer] DXI paramagnetic particle chemiluminescent immunoassay method. Results obtained with different assay methods or kits cannot be used interchangeably. Performed By: #### 5 8410-2 #### [facility] CLIA [id number] [address] [place] [address] [place] ESR Westergren method (Bld) [Velocity]on 08-09-2023 ESR (Bld) [Velocity] 80 mm/h High 0-30 [facility] Comment on above: Order Comment: Speci men Type: BLOOD SPECIMEN Ordering Facility: [facility] Address: [address] [place] [address] Result Comment: Allegra ected result: Previously reported as 14 mm/hr on 08/09/2023 at 2:10 PM EDT. Performed By: #### 2 4321-2, 25072-0, 98927-5, 3015-3, 91352-9, 5195-3 #### [facility] CLIA [id number] [address] [place] [address] [place] HIV 1+2 Ab IA Qlon HIV 1+2 Ab+HIV1 p24 Ag IA Ql Non-Reactive Normal Nonreactive [facility] Comment on above: Order Comment: Speci men Type: BLOOD SPECIMEN Ordering Facility: [facility] Address: [address] [place] [address] Result Comment: Nonr eactive: Less than 1.0 index value Specimens with an index value <1.0 are considered nonreactive for antibodies to HIV-1, HIV-2, and p24 antigen by the [employer] IM CHIV assay. Performed By: #### 2 4321-2, 00408-9, 62453-7, 6-3, 59134-4, 5195-3 #### [facility] CLIA [id number] [address] [place], [place] [address] [place] Magnesium SerPl-mCncon 08-08 Magnesium [Mass/Vol] 2.1 mg/dL Normal 1.6-2.6 [facility] Comment on above: Order Comment: Noelle stevens Type: BLOOD SPECIMEN Ordering Facility: [facility] Address: [address] [place] [address] Performed By: #### 2 4321-2, 19509-9, 08821-3, 3016-3, 47141-2, 5195-3 #### [facility] CLIA [id number] [address] [place] [address] [place] NURSING PROGon 08-09-2023 NURSING PROG HNO ID: [id number] Author: EVERETT POWELL, RN Service: Nursing Author Type: Registered Nurse Type: Nursing Progress Note Filed: 08/09/2023 08:34 Note Text: Pt resting comfortably, eyes closed. Respirations easy/unlabored while at rest on RA. Lungs clear/decreased bilaterally. Pt is disoriented, alert to person only. Fistula to LUE +B/T. Continues with IV Rocephin. Bed alarm in place. No further needs noted at this time. Will continue to monitor. Normal [facility] Nuclear Ab IA Ql (S)on 08-08 PRAKASH SCR QUAL Negative Normal Negative [facility] Comment on above: Order Comment: Noelle stevens Type: BLOOD SPECIMENOrdering Facility: [facility] Address: [address] [place] [address] Result Comment: The qualitative antinuclear antibody screen test performed using the following antigens: dsDNA, Chromatin, Ribosomal P, SS-A 60, SS-A 52, SS-B, Sm, SmRNP, STEEL LAYER A, STEEL LAYER 68, Scl-70, Seema-1, and Centromere B. Methodology: Multiplex flow immunoassay. Performed By: #### 4 7383-5 ####[id number] [facility] [id number] [place] [address] [place] TREPONEMA PALLIDUM SCREENon 08-09-2023 T. pallidum IgG IF Ql (S) Non-Reactive Normal Nonreactive [facility] Comment on above: Order Comment: Noelle stevens Type: BLOOD SPECIMEN Ordering Facility: [facility] Address: [address] [place] [address] Result Comment: Samp les with an index value of less than 0.90 are considered Nonreactive for Syphilis T. pallidum antibodies. Performed By: #### 2 4321-2, 04249-0, 94013-2, 3016-3, 86928-8, 5195-3 #### [facility] CLIA [id number] [address] [place], [place] [address] [facility] Vit B12 SerPl-mCncon 024 Cobalamin (Vitamin B12) [Mass/Vol] pg/mL High 193-986 [facility] Comment on above: Order Comment: Speci men Type: BLOOD SPECIMEN Ordering Facility: [facility] Address: [address] [place], [place] [address] [address] Result Comment: Wait for Final Result Performed By: #### 2 4321-2, 52568-8, 65588-7, 6-3, 15426-4, 5-3 #### [facility] CLIA [id number] [address] [place], [place] [address] [facility] ALLIED HEALTHon 08-08-2023 ALLIED HEALTH HNO ID: [id number] Author: BARBIE PEREZ RT(R) Service: Radiology Author Type: Technologist Type: Allied Health Filed: 08/08/2023 10:59 Note Text: 1%lidocaine 12cc csf obtained Radiology Service Progress Note PATIENT NAME: Lavinia Durand DATE OF SERVICE: August 08, 2023 TIME: 10:58 AM PATIENT IDENTITY VERIFICATION COMPLETED USING TWO (2) IDENTIFIERS: Name and Date of confirmed by identification band. FALL SCREENING: Has the patient had 2 falls in the last year or 1 fall with injury or currently using an Ambulatory Assistive Device (Walker, Cane, Wheelchair, Crutches, etc.)? Inpatient: Screened on floor PATIENT GENDER DATA: Female. 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 HELPER: No RADIOLOGY DEPARTMENT: General X-ray: Exam(s) Completed: GI/ Procedure(s): lp PERIPHERAL IV DATA: Not applicable SIGNED BY: Barbie Perez, RT(R) August 08, 2023 10:58 AM Normal [facility] Basic metabolic 2000 panelon 08-08-2023 Anion gap [Moles/Vol] 11 mmol/L Normal 5-16 [facility] Comment on above: Order Comment: Speci men Type: BLOOD SPECIMEN Ordering Facility: [facility] Address: [address] [place] [address] Performed By: #### 2 4321-2, 60236-3, 07321-5, 6-3, 46052-4, 5-3 #### [facility] CLIA [id number] [address] [place] [address] [place] Calcium [Mass/Vol] 9.5 mg/dL Normal 8.5-10.5 [facility] Comment on above: Order Comment: Speci men Type: BLOOD SPECIMEN Ordering Facility: [facility] Address: [address] [place] [address] Performed By: #### 2 4321-2, 16798-4, 74336-3, 6-3, 49950-0, 5-3 #### [facility] CLIA [id number] [address] [place] [address] [place] Chloride [Moles/Vol] 98 mmol/L Normal 98-107 [facility] Comment on above: Order Comment: Speci men Type: BLOOD SPECIMEN Ordering Facility: [facility] Address: [address] [place], [place] [address] Performed By: #### 2 4321-2, 86247-2, 84248-2, 6-3, 71336-8, 5-3 #### [facility] CLIA [id number] [address] [place] [address] [place] CO2 [Moles/Vol] 24 mmol/L Normal 21-32 [facility] Comment on above: Order Comment: Speci men Type: BLOOD SPECIMEN Ordering Facility: [facility] Address: [address] [place] [address] Performed By: #### 2 4321-2, 29923-9, 70127-8, 3016-3, 45701-2, 5-3 #### [facility] CLIA [id number] [address] [place], [place] [address] [place] Creatinine [Mass/Vol] 5.22 mg/dL High 0.51-0.95 [facility] Comment on above: Order Comment: Noelle stevens Type: BLOOD SPECIMEN Ordering Facility: [facility] Address: [address] [place] [address] Result Comment: Yoly ents receiving either N-Acetylcysteine (NAC) or Metamizole prior to venipuncture, may have falsely depressed results. Performed By: #### 2 4321-2, 66171-9, 32870-9, 3015-3, 87957-4, 5194-3 #### [facility] CLIA [id number] [address] [place] [address] Creatinine and Glomerular filtration rate.predicted panel (S/P/Bld) 8 mL/min/1.73m??? Low >=60 [facility] Comment on above: Order Comment: Noelle stevens Type: BLOOD SPECIMEN Ordering Facility: [facility] Address: [address] [place] [address] Result Comment: Isabelle mated Glomerular Filtration Rate (eGFR) is calculated using the 2020 CKD-EPI creatinine equation. This equation utilizes serum creatinine, sex, and age as parameters. The creatinine assay has traceable calibration to isotope dilution-mass spectrometry. Refer to KDIGO guidelines for clinical interpretation. In patients with unstable renal function, e.g. those with acute kidney injury, the eGFR may not accurately reflect actual GFR. Performed By: #### 2 4321-2, 45675-3, 54475-9, 6-3, 83551-7, 5-3 #### [facility] CLIA [id number] [address] [place], [place] [address] [place] Glucose [Mass/Vol] 131 mg/dL High 70-100 [facility] Comment on above: Order Comment: Noelle stevens Type: BLOOD SPECIMEN Ordering Facility: [facility] Address: [address] [place] [address] Result Comment: The [place] [employer] (ADA) provides guidance for cutoff values for fasting glucose and random glucose. The ADA defines fasting as no caloric intake for at least 8 hours. Fasting plasma glucose results between 100 to 125 mg/dL indicate increased risk for diabetes (prediabetes). Fasting plasma glucose results greater than or equal to 126 mg/dL meet the criteria for diagnosis of diabetes. In the absence of unequivocal hyperglycemia, results should be confirmed by repeat testing. In a patient with classic symptoms of hyperglycemia or hyperglycemic crisis, random plasma glucose results greater than or equal to 200 mg/dL meet the criteria for diagnosis of diabetes. Reference: Standards of Medical Care in Diabetes 2016, [place] [employer]. Diabetes Care. 2016.39(Suppl 1). Results may be falsely elevated after the administration of Sulfapyridine. Results may be falsely depressed after the administration of Sulfasalazine. Performed By: #### 2 4321-2, 71757-0, 51706-6, 3016-3, 12373-8, 5195-3 #### [facility] CLIA [id number] [address] [place] [address] [place] Potassium [Moles/Vol] 5.0 mmol/L Normal 3.5-5.1 [facility] Comment on above: Order Comment: Speci men Type: BLOOD SPECIMEN Ordering Facility: [facility] Address: [address] [place] [address] Performed By: #### 2 4321-2, 96576-0, 80125-5, 6-3, 50040-2, 5-3 #### [facility] CLIA [id number] [address] [place], [place] [address] [place] Sodium [Moles/Vol] 133 mmol/L Low 136-145 [facility] Comment on above: Order Comment: Speci men Type: BLOOD SPECIMEN Ordering Facility: [facility] Address: [address] [place] [address] Performed By: #### 2 4321-2, 26002-2, 54206-6, 3016-3, 03902-2, 5195-3 #### [facility] CLIA [id number] [address] [place], [place] [address] [place] Urea nitrogen [Mass/Vol] 41 mg/dL High 7-26 [facility] Comment on above: Order Comment: Speci men Type: BLOOD SPECIMEN Ordering Facility: [facility] Address: [address] [place] [address] Performed By: #### 2 4321-2, 14607-4, 16186-3, 3016-3, 27342-9, 5195-3 #### [facility] CLIA [id number] [address] [place] [address] [place] CBC W Auto Differential pane l (Bld)on 08-08-2023 Basophils (Bld) [#/Vol] 0.04 10*3/uL Normal <0.11 [facility] Comment on above: Order Comment: Speci men Type: BLOOD SPECIMEN Ordering Facility: [facility] Address: [address] [place] [address] Performed By: #### 2 4321-2, 02038-5, 56021-2, 6-3, 72093-8, 5-3 #### [facility] CLIA [id number] [address] [place] [address] [place] Basophils/100 WBC (Bld) 0.4 % Normal [facility] Comment on above: Order Comment: Speci men Type: BLOOD SPECIMEN Ordering Facility: [facility] Address: [address] [place] [address] Performed By: #### 2 4321-2, 90556-6, 02224-4, 6-3, 32651-9, 5-3 #### [facility] CLIA [id number] [address] [place], [place] [address] [place] Differential cell count method Nom (Bld) Auto Normal [facility] Comment on above: Order Comment: Speci men Type: BLOOD SPECIMEN Ordering Facility: [facility] Address: [address] [place] [address] Performed By: #### 2 4321-2, 68557-8, 55583-0, 6-3, 60908-6, 5-3 #### [facility] CLIA [id number] [address] [place] [address] [place] Eosinophils (Bld) [#/Vol] 0.17 10*3/uL Normal <0.46 [facility] Comment on above: Order Comment: Speci men Type: BLOOD SPECIMEN Ordering Facility: [facility] Address: [address] [place] [address] Performed By: #### 2 4321-2, 33189-7, 32246-9, 3016-3, 49455-5, 5-3 #### [facility] CLIA [id number] [address] [place], [place] [address] [place] Eosinophils/100 WBC (Bld) 1.7 % Normal [facility] Comment on above: Order Comment: Speci men Type: BLOOD SPECIMEN Ordering Facility: [facility] Address: [address] [place] [address] Performed By: #### 2 4321-2, 36452-9, 69794-0, 6-3, 08155-6, 5-3 #### [facility] CLIA [id number] [address] [place], [place] [address] [place] Erythrocyte distribution width (RBC) [Ratio] 16.2 % High 11.5-15.0 [facility] Comment on above: Order Comment: Speci men Type: BLOOD SPECIMEN Ordering Facility: [facility] Address: [address] [place] [address] Performed By: #### 2 4321-2, 18038-3, 90419-8, 6-3, 54580-0, 5195-3 #### [facility] CLIA [id number] [address] [place], [place] [address] [place] Hematocrit (Bld) [Volume fraction] 30.0 % Low 36.0-46.0 [facility] Comment on above: Order Comment: Speci men Type: BLOOD SPECIMEN Ordering Facility: [facility] Address: [address] [place] [address] Performed By: #### 2 4321-2, 05896-5, 34583-3, 3016-3, 33949-1, 5195-3 #### [facility] CLIA [id number] [address] [place], [place] [address] [place] Hemoglobin (Bld) [Mass/Vol] 9.9 g/dL Low 11.5-15.5 [facility] Comment on above: Order Comment: Speci men Type: BLOOD SPECIMEN Ordering Facility: [facility] Address: [address] [place] [address] Performed By: #### 2 4321-2, 80350-1, 96821-9, 3016-3, 13597-1, 5195-3 #### [facility] CLIA [id number] [address] [place], [place] [address] [place] Immature granulocytes (Bld) [#/Vol] 0.06 10*3/uL Normal <0.10 [facility] Comment on above: Order Comment: Speci men Type: BLOOD SPECIMEN Ordering Facility: [facility] Address: [address] [place] [address] Performed By: #### 2 4321-2, 96016-8, 13906-2, 3016-3, 81889-3, 5195-3 #### [facility] CLIA [id number] [address] [place], [place] [address] [place] Immature granulocytes/100 WBC (Bld) 0.6 % Normal [facility] Comment on above: Order Comment: Speci men Type: BLOOD SPECIMEN Ordering Facility: [facility] Address: [address] [place] [address] Performed By: #### 2 4321-2, 26227-0, 48830-8, 3016-3, 28971-0, 5195-3 #### [facility] CLIA [id number] [address] [place] [address] [place] Lymphocytes (Bld) [#/Vol] 1.27 10*3/uL Normal 1.00-4.00 [facility] Comment on above: Order Comment: Speci men Type: BLOOD SPECIMEN Ordering Facility: [facility] Address: [address] [place] [address] Performed By: #### 2 4321-2, 12215-8, 15780-4, 6-3, 61590-9, 5-3 #### [facility] CLIA [id number] [address] [place], [place] [address] [place] Lymphocytes/100 WBC (Bld) 12.8 % Normal [facility] Comment on above: Order Comment: Speci men Type: BLOOD SPECIMEN Ordering Facility: [facility] Address: [address] [place], [place] [address] Performed By: #### 2 4321-2, 96164-9, 01395-0, 6-3, 23047-6, 5-3 #### [facility] CLIA [id number] [address] [place], [place] [address] [place] MCH (RBC) [Entitic mass] 29.2 pg Normal 26.0-34.0 [facility] Comment on above: Order Comment: Speci men Type: BLOOD SPECIMEN Ordering Facility: [facility] Address: [address] [place] [address] Performed By: #### 2 4321-2, 57494-9, 27465-0, 3015-3, 60490-9, 5194-3 #### [facility] CLIA [id number] [address] [place], [place] [address] [place] MCHC (RBC) [Mass/Vol] 33.0 g/dL Normal 30.5-36.0 [facility] Comment on above: Order Comment: Speci men Type: BLOOD SPECIMEN Ordering Facility: [facility] Address: [address] [place] [address] Performed By: #### 2 4321-2, 15688-2, 60735-3, 6-3, 94612-3, 5194-3 #### [facility] CLIA [id number] [address] [place], [place] [address] [place] MCV (RBC) [Entitic vol] 88.5 fL Normal 80.0-100.0 M [facility] Comment on above: Order Comment: Speci men Type: BLOOD SPECIMEN Ordering Facility: [facility] Address: [address] [place] [address] Performed By: #### 2 4321-2, 33942-2, 71956-0, 3016-3, 96041-8, 5195-3 #### [facility] CLIA [id number] [address] [place] [address] [place] Monocytes (Bld) [#/Vol] 0.81 10*3/uL Normal <0.87 [facility] Comment on above: Order Comment: Speci men Type: BLOOD SPECIMEN Ordering Facility: [facility] Address: [address] [place] [address] Performed By: #### 2 4321-2, 01725-4, 46103-7, 3016-3, 15658-2, 5195-3 #### [facility] CLIA [id number] [address] [place], [place] [address] [place] Monocytes/100 WBC (Bld) 8.2 % Normal [facility] Comment on above: Order Comment: Speci men Type: BLOOD SPECIMEN Ordering Facility: [facility] Address: [address] [place] [address] Performed By: #### 2 4321-2, 34258-3, 74846-4, 3016-3, 94445-5, 5195-3 #### [facility] CLIA [id number] [address] [place] [address] [place] Neutrophils (Bld) [#/Vol] 7.58 10*3/uL High 1.45-7.50 [facility] Comment on above: Order Comment: Speci men Type: BLOOD SPECIMEN Ordering Facility: [facility] Address: [address] [place] [address] Performed By: #### 2 4321-2, 59081-2, 36310-5, 3016-3, 54955-2, 5195-3 #### [facility] CLIA [id number] [address] [place] [address] [place] Neutrophils/100 WBC (Bld) 76.3 % Normal [facility] Comment on above: Order Comment: Speci men Type: BLOOD SPECIMEN Ordering Facility: [facility] Address: [address] [place] [address] Performed By: #### 2 4321-2, 91895-4, 92647-0, 3016-3, 46470-1, 5195-3 #### [facility] CLIA [id number] [address] [place] [address] [place] Nucleated RBC (Bld) [#/Vol] 10*3/uL Normal <0.01 [facility] Comment on above: Order Comment: Speci men Type: BLOOD SPECIMEN Ordering Facility: [facility] Address: [address] [place] [address] Performed By: #### 2 4321-2, 23606-3, 12931-9, 3016-3, 45995-8, 5195-3 #### [facility] CLIA [id number] [address] [place] [address] [place] Nucleated RBC/100 WBC (Bld) [Ratio] 0.0 /100 WBC Normal [facility] Comment on above: Order Comment: Speci men Type: BLOOD SPECIMEN Ordering Facility: [facility] Address: [address] [place] [address] Performed By: #### 2 4321-2, 17531-2, 11784-2, 3016-3, 56708-0, 5195-3 #### [facility] CLIA [id number] [address] [place], [place] [address] [place] Platelet mean volume (Bld) [Entitic vol] 10.4 fL Normal 9.0-12.7 [facility] Comment on above: Order Comment: Speci men Type: BLOOD SPECIMEN Ordering Facility: [facility] Address: [address] [place] [address] Performed By: #### 2 4321-2, 21057-3, 43796-9, 3016-3, 63332-9, 5195-3 #### [facility] CLIA [id number] [address] [place] [address] [place] Platelets (Bld) [#/Vol] 160 10*3/uL Normal 150-400 [facility] Comment on above: Order Comment: Speci men Type: BLOOD SPECIMEN Ordering Facility: [facility] Address: [address] [place] [address] Performed By: #### 2 4321-2, 01891-2, 16891-2, 3016-3, 92888-1, 5195-3 #### [facility] CLIA [id number] [address] [place] [address] [place] RBC (Bld) [#/Vol] 3.39 10*6/uL Low 3.90-5.20 [facility] Comment on above: Order Comment: Speci men Type: BLOOD SPECIMEN Ordering Facility: [facility] Address: [address] [place] [address] Performed By: #### 2 4321-2, 71458-5, 88832-1, 3016-3, 34148-6, 5195-3 #### [facility] CLIA [id number] [address] [place] [address] [place] WBC (Bld) [#/Vol] 9.93 10*3/uL Normal 3.70-11.00 [facility] Comment on above: Order Comment: Speci men Type: BLOOD SPECIMEN Ordering Facility: [facility] Address: [address] [place] [address] Performed By: #### 2 4321-2, 53363-1, 74907-9, 3016-3, 50233-5, 5195-3 #### [facility] CLIA [id number] [address] [place], [place] [address] [place] CRYPTOCOCCUS AG DETon 2023 CRYPTOCOCCUS AG DET CRYPTOCOCCAL AG RESU LT: Cryptococcal Antigen NOT DETECTED by line flow immunoassay Normal [facility] Comment on above: Performed By: #### 2 4321-2, 21135-0, 58492-5, 3016-3, 90500-9, 5195-3 #### [facility] CLIA [id number] [address] [place] [address] [place] CSF MANUAL DIFFon 08-08-2023 DIF TTL, CSF Normal [facility] Comment on above: Order Comment: Speci men Type: BLOOD SPECIMEN Ordering Facility: [facility] Address: [address] [place] [address] Performed By: #### 2 4321-2, 89218-9, 94730-9, 3016-3, 27078-8, 5-3 #### [facility] CLIA [id number] [address] [place] [address] [place] NEUT%, CSF Normal [facility] Comment on above: Order Comment: Speci men Type: BLOOD SPECIMEN Ordering Facility: [facility] Address: [address] [place] [address] Result Comment: No d ifferential performed, <6 WBCs counted Performed By: #### 2 4321-2, 16231-8, 46895-6, 3016-3, 90755-3, 5-3 #### [facility] CLIA [id number] [address] [place], [place] [address] [place] CSF PATHOLOGIST INTERPRETATI ONon 08-08-2023 CSF STAFF REVIEW Few erythrocytes and rare monocytes and lymphocytes. Normal [facility] Comment on above: Order Comment: Speci men Type: BLOOD SPECIMEN Ordering Facility: [facility] Address: [address] [place], [place] [address] Performed By: #### 2 4321-2, 73499-0, 93478-2, 3016-3, 44556-0, 5195-3 #### [facility] CLIA [id number] [address] [place] [address] [place] Pathologist name Reviewed by Harmony dickinson MD [facility] Comment on above: Order Comment: Speci men Type: BLOOD SPECIMEN Ordering Facility: [facility] Address: [address] [place] [address] Performed By: #### 2 4321-2, 16599-7, 98776-8, 3016-3, 62171-0, 5195-3 #### [facility] CLIA [id number] [address] [place] [address] [place] Cell count panel (CSF)on Clarity (CSF) Clear Normal Clear [facility] Comment on above: Order Comment: Speci men Type: BLOOD SPECIMEN Ordering Facility: [facility] Address: [address] [place] [address] Performed By: #### 2 4321-2, 95013-1, 74767-2, 3016-3, 37732-6, 5195-3 #### [facility] CLIA [id number] [address] [place] [address] [place] Clarity (Unsp spec) Clear Normal Clear [facility] Comment on above: Order Comment: Speci men Type: BLOOD SPECIMEN Ordering Facility: [facility] Address: [address] [place] [address] Performed By: #### 2 4321-2, 80802-8, 34314-1, 3016-3, 96487-5, 5195-3 #### [facility] CLIA [id number] [address] [place] [address] [place] Color (CSF) Colorless Normal Colorless [facility] Comment on above: Order Comment: Speci men Type: BLOOD SPECIMEN Ordering Facility: [facility] Address: [address] [place] [address] Performed By: #### 2 4321-2, 36948-0, 55181-3, 3016-3, 20130-2, 5195-3 #### [facility] CLIA [id number] [address] [place] [address] [place] Color (Spun CSF) Colorless Normal Colorless [facility] Comment on above: Order Comment: Speci men Type: BLOOD SPECIMEN Ordering Facility: [facility] Address: [address] [place] [address] Performed By: #### 2 4321-2, 45221-3, 40219-2, 3016-3, 41266-4, 5-3 #### [facility] CLIA [id number] [address] [place], [place] [address] [facility] [place] CSF TUBE NUMBER Tube 4 Normal [facility] Comment on above: Order Comment: Speci men Type: BLOOD SPECIMEN Ordering Facility: [facility] Address: [address] [place] [address] Performed By: #### 2 4321-2, 88790-5, 77007-2, 3016-3, 81054-1, 5195-3 #### [facility] CLIA [id number] [address] [place], [place] [address] [place] RBC Manual cnt (CSF) [#/Vol] 156 cells/uL High 0-5 [facility] Comment on above: Order Comment: Speci men Type: BLOOD SPECIMEN Ordering Facility: [facility] Address: [address] [place] [address] Performed By: #### 2 4321-2, 13827-5, 24200-7, 6-3, 64011-9, 5-3 #### [facility] CLIA [id number] [address] [place] [address] [place] WBC Manual cnt (CSF) [#/Vol] <[address] Comment on above: Order Comment: Speci men Type: BLOOD SPECIMEN Ordering Facility: [facility] Address: [address] [place] [address] Performed By: #### 2 4321-2, 41938-4, 55921-9, 6-3, 26152-2, 5-3 #### [facility] CLIA [id number] [address] [place], [place] [address] [facility] [place] FUNGAL CSF CULT/CADon 2023 FUNGAL CSF CULT/CAD CULTURE, FUNGAL: No Fungus isolated after 28 days [facility] Comment on above: Performed By: #### 2 4321-2, 07847-9, 70449-6, 3016-3, 39409-6, 5195-3 #### [facility] CLIA [id number] [address] [place] [address] [place] Glucose CSF-mCncon 4 Glucose (CSF) [Mass/Vol] 60 mg/dL Normal 40-70 [facility] Comment on above: Order Comment: Speci men Type: BLOOD SPECIMEN Ordering Facility: [facility] Address: [facility] [place] [facility] [place] [address] Result Comment: Lumb ar CSF glucose values of healthy patients are approximately 60% of the plasma values and must always be compared with a concurrently measured plasma value for adequate clinical interpretation. References: 1. Glucose HK (GLUC3) [package insert V 12.0 [place]]. [employer], [place], [place]. August 2015. 2. Bright Canales, Jose HAbraham (2015). Chapter 7: Glucose and Lactate. Alex Sung.(eds.), Cerebrospinal Fluid in Clinical Neurology. [place]: [employer]. Performed By: #### 2 4321-2, 65596-0, 27367-9, 6-3, 81081-2, 5195-3 #### [facility] CLIA [id number] [address] [place], [place] [address] [place] HERPES SIMPLEX CSFon 024 HERPES SIMPLEX CSF HSV-1: Negative for Herpes Simplex Virus Type 1 by PCR HSV-2: Negative for Herpes Simplex Virus Type 2 by PCR Normal [facility] Comment on above: Performed By: #### 2 4321-2, 45920-5, 65934-0, 6-3, 88377-0, 5195-3 #### [facility] CLIA [id number] [address] [place], [place] [address] [place] MRI BRAIN WO/W IVCONon 08-07 MRI BRAIN WO/W IVCON * * *Final Report* * * DATE OF EXAM: Aug 08 2023 9:54AM [facility] 0295 - MRI BRAIN WO/W IVCON / PROCEDURE REASON: Stroke/TIA, determine embolic source * * * * Physician Interpretation * * * * EXAMINATION: MRI BRAIN WO/W IVCON CLINICAL HISTORY: Altered mental status. Bladder cancer. TECHNIQUE: Routine brain MRI protocol without and with contrast including diffusion images. MQ: MRBWOW_2 Contrast: 8 ML 0921 mL Dotarem IV COMPARISON: None. RESULT: Acute Change: There is no evidence of restricted diffusion to suggest an acute infarct. Hemorrhage: No evidence of prior parenchymal hemorrhage on the gradient echo images. Mass Lesion/ Mass Effect: No evidence of an intracranial mass or extra-axial fluid collection. No abnormal parenchymal or leptomeningeal enhancement is noted following contrast administration. No significant mass effect. Chronic Change: Scattered patchy areas of increased T2 and FLAIR signal are present in the supratentorial white matter which is a nonspecific finding but likely represents mild chronic microvascular ischemia. Parenchyma: There is mild generalized parenchymal volume loss. The brain parenchyma is otherwise within normal limits of signal intensity and morphology. Ventricles: Normal caliber and morphology. Skull Base: Hypothalamic and pituitary region are grossly normal. Craniocervical junction is normal. No significant marrow replacement process. Vasculature: Major intracranial arterial structures, and dural venous sinuses show typical flow void, suggesting patency by spin echo criteria. Other: The visualized paranasal sinuses and mastoid air cells are clear. The orbits and extracranial soft tissues are unremarkable. IMPRESSION: 1. NO ACUTE INTRACRANIAL PROCESS 2. NO SUSPICIOUS ENHANCEMENT TO SUGGEST METASTASIS 3. MILD NONSPECIFIC WHITE MATTER CHANGE AND MILD-MODERATE VOLUME LOSS [employer] Transcribe Date/Time: Aug 08 2023 10:08A Dictated by : RICKY ASH MD This examination was interpreted and the report reviewed and electronically signed by: RICKY ASH MD on Aug 08 2023 10:12AM EST [id number] Normal [facility] Magnesium SerPl-mCncon 08-07 Magnesium [Mass/Vol] 2.0 mg/dL Normal 1.6-2.6 [facility] Comment on above: Order Comment: Speci men Type: BLOOD SPECIMEN Ordering Facility: [facility] Address: [address] [place], [place] [address] [address] Performed By: #### 2 4321-2, 68436-9, 33035-6, 3016-3, 74938-5, 5195-3 #### [facility] CLIA [id number] [address] [place] NURSING PROGon 08-08-2023 NURSING PROG HNO ID: [id number] Author: TRINA JUSTICE RN Service: Nursing Author Type: Registered Nurse Type: Nursing Progress Note Filed: 08/08/2023 15:02 Note Text: RN phoned [place] to inform that patient will be going to [facility]98 following dialysis. She verbalized understanding. [facility] NURSING PROG HNO ID: [id number] Author: TRINA JUSTICE RN Service: Nursing Author Type: Registered Nurse Type: Nursing Progress Note Filed: 08/08/2023 11:35 Note Text: Patient's Daughter in law ( [place] ) was called again to inform that patient is leaving the unit for dialysis. [facility] NURSING PROG HNO ID: [id number] Author: TRINA UJSTICE RN Service: Nursing Author Type: Registered Nurse Type: Nursing Progress Note Filed: 08/08/2023 12:09 Note Text: Patient returned from Lumbar puncture and MRI. Small bandaid on her lower back from LP is dry and intact. Patient alert to name. Lying flat at this time. [facility] NURSING PROG HNO ID: [id number] Author: TRINA JUSTICE RN Service: Nursing Author Type: Registered Nurse Type: Nursing Progress Note Filed: 08/08/2023 11:34 Note Text: Patient's [id number] ( [place] was called And informed that patient was going for there LP / MRI this am. Normal [facility] Prot CSF-mCncon 08-08-2023 Protein (CSF) [Mass/Vol] 37 mg/dL Normal 15-45 [facility] Comment on above: Order Comment: Speci men Type: BLOOD SPECIMEN Ordering Facility: [facility] Address: [address] [place] [address] Result Comment: Samp les containing Amikacin, Gentamicin, Kanamycin, Tobramycin, and Neomycin Sulfate may cause falsely increased [employer] UCFP assay results. Performed By: #### 2 4321-2, 93197-1, 37585-4, 3016-3, 76710-7, 5195-3 #### [facility] CLIA [id number] [facility] [employer] [address] [place] THERAPY NTon 08-08-2023 THERAPY NT HNO ID: [id number] Author: NIKUNJ SALGUERO OTA/L Service: Occupational Therapy Author Type: Rug Sizer Type: Therapy (PT/OT/Speech/Resp) Filed: 08/08/2023 11:16 Note Text: -------- Attestation signed by Luciana Mckeon OTR/L at 08/08/2023 11:48 AM I reviewed and agree with the documentation corresponding to this therapy visit. SIGNATURE: VELIA Wood DATE: August 08, 2023 TIME: 11:48 AM -------- OCCUPATIONAL THERAPY MISSED VISIT SERVICE DATE: 08/08/2023 SERVICE TIME: 1113 ROOM: [id number] Patient not seen due to Clinical Appropriateness (Pt on bed rest, returing from spinal tap). SIGNATURE: MIGUEL Shell PATIENT NAME: Lavinia Durand DATE: August 08, 2023 TIME: 11:16 AM [facility] XR LUMBAR PUNCTURE DIAGNOSTI Con 08-08-2023 XR LUMBAR PUNCTURE DIAGNOSTIC * * *Final Report* * * DATE OF EXAM: Aug 08 2023 10:56AM RHX [id number] - XR LUMBAR PUNCTURE DIAGNOSTIC / PROCEDURE REASON: continuing encephalophy * * * * Physician Interpretation * * * * FLUOROSCOPIC-GUIDED LUMBAR PUNCTURE Clinical Statement: Continuing encephalopathy. FINDINGS: Due to the patient's clinical condition, consent for the procedure was obtained from the patient's ojwccady-og-eph, Marni Durand, who gave verbal consent to proceed. A time-out was observed to verify patient ID and the procedure to be performed. The patient was placed in the prone position on the fluoroscopy table. A puncture site was localized at the L3 level using fluoroscopy and marked at the skin surface with an indelible marker. The area was then prepped and draped in the usual sterile fashion. Local anesthesia was achieved with 1% lidocaine. A puncture was made using a 22-gauge spinal needle with stylet. Upon entering the thecal sac, the stylet was removed, with clear CSF visualized at the needle hub. An image was saved to PACS to document needle placement. A total of 12 cc of CSF was then collected equally in four separate vials and sent to the laboratory for further testing per the requesting physician's orders. The stylet was replaced and the needle was removed. A sterile bandage was applied to the puncture site. The procedure was well tolerated by the patient with no immediate complications addressed and the patient was released from the department in satisfactory condition. Fluoroscopy time: 0.3 minutes Total air kerma: 13.67 mGy. Dose area product: 1.072 Gycm2. IMPRESSION: Successful fluoroscopic-guided lumbar puncture. Livestock Haulier: PSCB Transcribe Date/Time: Aug 08 2023 12:59P Dictated by : EMA HOOPER MD This examination was interpreted and the report reviewed and electronically signed by: EMA HOOPER MD on Aug 08 2023 1:04PM EST [id number] Normal [facility] Basic metabolic 2000 panelon 08-07-2023 Anion gap [Moles/Vol] 10 mmol/L Normal 5-16 [facility] Comment on above: Order Comment: Speci men Type: BLOOD SPECIMEN Ordering Facility: [facility] Address: [address] [place], [place] [address] Performed By: #### 2 4321-2, 17885-1, 71447-2, 3016-3, 61740-7, 5195-3 #### [facility] CLIA [id number] [address] [place] [address] [place] Calcium [Mass/Vol] 9.2 mg/dL Normal 8.5-10.5 [facility] Comment on above: Order Comment: Speci men Type: BLOOD SPECIMEN Ordering Facility: [facility] Address: [address] [place] [address] Performed By: #### 2 4321-2, 63784-2, 83613-3, 3016-3, 53928-0, 5195-3 #### [facility] CLIA [id number] [address] [place], [place] [address] [place] Chloride [Moles/Vol] 100 mmol/L Normal 98-107 [facility] Comment on above: Order Comment: Speci men Type: BLOOD SPECIMEN Ordering Facility: [facility] Address: [address] [place] [address] Performed By: #### 2 4321-2, 15712-0, 65224-4, 6-3, 90376-0, 5-3 #### [facility] CLIA [id number] [address] [place] [address] [place] CO2 [Moles/Vol] 27 mmol/L Normal 21-32 [facility] Comment on above: Order Comment: Speci men Type: BLOOD SPECIMEN Ordering Facility: [facility] Address: [address] [place] [address] Performed By: #### 2 4321-2, 39291-5, 71360-8, 6-3, 47354-7, 5-3 #### [facility] CLIA [id number] [address] [place], [place] [address] [place] Creatinine [Mass/Vol] 3.90 mg/dL High 0.51-0.95 [facility] Comment on above: Order Comment: Speci men Type: BLOOD SPECIMEN Ordering Facility: [facility] Address: [address] [place] [address] Result Comment: Yoly ents receiving either N-Acetylcysteine (NAC) or Metamizole prior to venipuncture, may have falsely depressed results. Performed By: #### 2 4321-2, 70184-9, 20811-1, 3016-3, 06893-4, 5195-3 #### [facility] CLIA [id number] [address] [place] [address] [place] Creatinine and Glomerular filtration rate.predicted panel (S/P/Bld) 11 mL/min/1.73m??? Low >=60 [facility] Comment on above: Order Comment: Noelle stevens Type: BLOOD SPECIMEN Ordering Facility: [facility] Address: [address] [place] [address] Result Comment: Isabelle mated Glomerular Filtration Rate (eGFR) is calculated using the 2020 CKD-EPI creatinine equation. This equation utilizes serum creatinine, sex, and age as parameters. The creatinine assay has traceable calibration to isotope dilution-mass spectrometry. Refer to KDIGO guidelines for clinical interpretation. In patients with unstable renal function, e.g. those with acute kidney injury, the eGFR may not accurately reflect actual GFR. Performed By: #### 2 4321-2, 00668-7, 10953-0, 3016-3, 14461-6, 5195-3 #### [facility] CLIA [id number] [address] [place] [address] [place] Glucose [Mass/Vol] 127 mg/dL High 70-100 [facility] Comment on above: Order Comment: Noelle stevens Type: BLOOD SPECIMEN Ordering Facility: [facility] Address: [address] [place] [address] Result Comment: The [place] Diabetes Association (ADA) provides guidance for cutoff values for fasting glucose and random glucose. The ADA defines fasting as no caloric intake for at least 8 hours. Fasting plasma glucose results between 100 to 125 mg/dL indicate increased risk for diabetes (prediabetes). Fasting plasma glucose results greater than or equal to 126 mg/dL meet the criteria for diagnosis of diabetes. In the absence of unequivocal hyperglycemia, results should be confirmed by repeat testing. In a patient with classic symptoms of hyperglycemia or hyperglycemic crisis, random plasma glucose results greater than or equal to 200 mg/dL meet the criteria for diagnosis of diabetes. Reference: Standards of Medical Care in Diabetes 2016, [place] [employer] Association. Diabetes Care. 2016.39(Suppl 1). Results may be falsely elevated after the administration of Sulfapyridine. Results may be falsely depressed after the administration of Sulfasalazine. Performed By: #### 2 4321-2, 78022-9, 52117-5, 3016-3, 54652-8, 5195-3 #### [facility] CLIA [id number] [address] [place], [place] [address] [place] Potassium [Moles/Vol] 4.2 mmol/L Normal 3.5-5.1 [facility] Comment on above: Order Comment: Speci men Type: BLOOD SPECIMEN Ordering Facility: [facility] Address: [address] [place] [address] Performed By: #### 2 4321-2, 71936-7, 74867-3, 3016-3, 11391-7, 5195-3 #### [facility] CLIA [id number] [address] [place], [place] [address] [place] OF [facility] Sodium [Moles/Vol] 137 mmol/L Normal 136-145 [facility] Comment on above: Order Comment: Speci men Type: BLOOD SPECIMEN Ordering Facility: [facility] Address: [address] [place] [address] Performed By: #### 2 4321-2, 40445-6, 24024-1, 3016-3, 04172-7, 5195-3 #### [facility] CLIA [id number] [address] [place], [place] [address] [place] Urea nitrogen [Mass/Vol] 25 mg/dL Normal 7-26 [facility] Comment on above: Order Comment: Speci men Type: BLOOD SPECIMEN Ordering Facility: [facility] Address: [address] [place] [address] Performed By: #### 2 4321-2, 18865-5, 71151-7, 3016-3, 81027-4, 5195-3 #### [facility] CLIA [id number] [address] [place], [place] [address] [place] CASE MANAGEMon 08-07-2023 CASE MANAGEM HNO ID: [id number] Author: LUZ BELTRAN LSW Service: ? Author Type: Bed Control Specialist Type: Care Mgt Progress Note Filed: 08/07/2023 21:46 Note Text: CARE MANAGEMENT PROGRESS NOTE Late entry SERVICE DATE: 08/07/2023 SERVICE TIME: 4:32PM LOS: 3 days Pt Remains encephalopathic. Follows simple directions. She is off Cardene drip. EEG shows no seizure activity diffusely slow. Nephrology spoke with lcwznxji-kd-tvx and son on the phone today. They have been discussing transitioning to hospice care versus continuing investigation for encephalopathy. The last decision from them is to pursue MRI brain and spinal tap. If no reversible cause identified, they are leaning towards transition to DNR CC. Dtr Hedy called SW back and states the point person to discuss issues with is her brother/pt's son Diya. Diya did bring in Advanced directives today, on chart and sent to admitting. Pt from [facility] where she gets in house dialysis MWF. Pt can return, no precert needed. Pt to receive HD tomorrow. Pending goals of care, test results stated above AND medical decision making with son for final disposition. SIGNATURE: WALTER Edwards PATIENT NAME: Lavinia Durand DATE: August 07, 2023 TIME: 4:32 PM PAGER/CONTACT #: [phone] Normal [facility] CBC W Auto Differential pane l (Bld)on 08-07-2023 Basophils (Bld) [#/Vol] 0.04 10*3/uL Normal <0.11 [facility] Comment on above: Order Comment: Noelle stevens Type: BLOOD SPECIMEN Ordering Facility: [facility] Address: [address] [place] [address] Performed By: #### 3 4528-0 #### [facility] CLIA [id number] [address] [place] [address] [place] Basophils/100 WBC (Bld) 0.4 % Normal [facility] Comment on above: Order Comment: Noelle stevens Type: BLOOD SPECIMEN Ordering Facility: [facility] Address: [address] [place] [address] Performed By: #### 3 4528-0 #### [facility] CLIA [id number] [address] [place] [address] [place] Differential cell count method Nom (Bld) Auto Normal [facility] Comment on above: Order Comment: Speci men Type: BLOOD SPECIMEN Ordering Facility: [facility] Address: [address] [place] [address] Performed By: #### 3 4528-0 #### [facility] CLIA [id number] [address] [place] [address] [place] Eosinophils (Bld) [#/Vol] 0.06 10*3/uL Normal <0.46 [facility] Comment on above: Order Comment: Speci men Type: BLOOD SPECIMEN Ordering Facility: [facility] Address: [address] [place] [address] Performed By: #### 3 4528-0 #### [facility] CLIA [id number] [address] [place] [address] [place] Eosinophils/100 WBC (Bld) 0.7 % Normal [facility] Comment on above: Order Comment: Speci men Type: BLOOD SPECIMEN Ordering Facility: [facility] Address: [address] [place] [address] Performed By: #### 3 4528-0 #### [facility] CLIA [id number] [address] [place] [address] [place] Erythrocyte distribution width (RBC) [Ratio] 16.2 % High 11.5-15.0 [facility] Comment on above: Order Comment: Speci men Type: BLOOD SPECIMEN Ordering Facility: [facility] Address: [address] [place] [address] Performed By: #### 3 4528-0 #### [facility] CLIA [id number] [address] [place] [address] [place] Hematocrit (Bld) [Volume fraction] 31.6 % Low 36.0-46.0 [facility] Comment on above: Order Comment: Speci men Type: BLOOD SPECIMEN Ordering Facility: [facility] Address: [facility] [place] [address] Performed By: #### 3 4528-0 #### [facility] CLIA [id number] [address] [place] [address] [place] Hemoglobin (Bld) [Mass/Vol] 10.4 g/dL Low 11.5-15.5 [facility] Comment on above: Order Comment: Speci men Type: BLOOD SPECIMEN Ordering Facility: [facility] Address: [address] [place] [address] Performed By: #### 3 4528-0 #### [facility] CLIA [id number] [address] [place] [address] [place] Immature granulocytes (Bld) [#/Vol] 0.07 10*3/uL Normal <0.10 [facility] Comment on above: Order Comment: Speci men Type: BLOOD SPECIMEN Ordering Facility: [facility] Address: [address] [place] [address] Performed By: #### 3 4528-0 #### [facility] CLIA [id number] [address] [place] [address] [place] Immature granulocytes/100 WBC (Bld) 0.8 % Normal [facility] Comment on above: Order Comment: Speci men Type: BLOOD SPECIMEN Ordering Facility: [facility] Address: [address] [place] [address] Performed By: #### 3 4528-0 #### [facility] CLIA [id number] [address] [place] [address] [place] Lymphocytes (Bld) [#/Vol] 0.84 10*3/uL Low 1.00-4.00 [facility] Comment on above: Order Comment: Speci men Type: BLOOD SPECIMEN Ordering Facility: [facility] Address: [address] [place] [address] Performed By: #### 3 4528-0 #### [facility] CLIA [id number] [address] [place] [address] [place] Lymphocytes/100 WBC (Bld) 9.3 % Normal [facility] Comment on above: Order Comment: Speci men Type: BLOOD SPECIMEN Ordering Facility: [facility] Address: [address] [place] [address] Performed By: #### 3 4528-0 #### [facility] CLIA [id number] [address] [place] [address] [place] MCH (RBC) [Entitic mass] 29.2 pg Normal 26.0-34.0 [facility] Comment on above: Order Comment: Speci men Type: BLOOD SPECIMEN Ordering Facility: [facility] Address: [address] [place] [address] Performed By: #### 3 4528-0 #### [facility] CLIA [id number] [address] [place] [address] [place] MCHC (RBC) [Mass/Vol] 32.9 g/dL Normal 30.5-36.0 [facility] Comment on above: Order Comment: Speci men Type: BLOOD SPECIMEN Ordering Facility: [facility] Address: [address] [place] [address] Performed By: #### 3 4528-0 #### [facility] CLIA [id number] [address] [place] [address] [place] OF [facility] MCV (RBC) [Entitic vol] 88.8 fL Normal 80.0-100.0 [facility] Comment on above: Order Comment: Speci men Type: BLOOD SPECIMEN Ordering Facility: [facility] Address: [address] [place] [address] Performed By: #### 3 4528-0 #### [facility] CLIA [id number] [address] [place] [address] [place] Monocytes (Bld) [#/Vol] 0.74 10*3/uL Normal <0.87 [facility] Comment on above: Order Comment: Speci men Type: BLOOD SPECIMEN Ordering Facility: [facility] Address: [address] [place] [address] Performed By: #### 3 4528-0 #### [facility] CLIA [id number] [address] [place] [address] [place] Monocytes/100 WBC (Bld) 8.1 % Normal [facility] Comment on above: Order Comment: Speci men Type: BLOOD SPECIMEN Ordering Facility: [facility] Address: [address] [place] [address] Performed By: #### 3 4528-0 #### [facility] CLIA [id number] [address] [place] [address] [place] Neutrophils (Bld) [#/Vol] 7.33 10*3/uL Normal 1.45-7.50 [facility] Comment on above: Order Comment: Speci men Type: BLOOD SPECIMEN Ordering Facility: [facility] Address: [address] [place] [address] Performed By: #### 3 4528-0 #### [facility] CLIA [id number] [address] [place] [address] [place] Neutrophils/100 WBC (Bld) 80.7 % Normal [facility] Comment on above: Order Comment: Speci men Type: BLOOD SPECIMEN Ordering Facility: [facility] Address: [address] [place] [address] Performed By: #### 3 4528-0 #### [facility] CLIA [id number] [address] [place] [address] [place] Nucleated RBC (Bld) [#/Vol] 10*3/uL Normal <0.01 [facility] Comment on above: Order Comment: Speci men Type: BLOOD SPECIMEN Ordering Facility: [facility] Address: [address] [place] [address] Performed By: #### 3 4528-0 #### [facility] CLIA [id number] [address] [place] [address] [place] Nucleated RBC/100 WBC (Bld) [Ratio] 0.0 /100 WBC Normal [facility] Comment on above: Order Comment: Speci men Type: BLOOD SPECIMEN Ordering Facility: [facility] Address: [address] [place] [address] Performed By: #### 3 4528-0 #### [facility] CLIA [id number] [address] [place] [address] [place] Platelet mean volume (Bld) [Entitic vol] 10.7 fL Normal 9.0-12.7 [facility] Comment on above: Order Comment: Speci men Type: BLOOD SPECIMEN Ordering Facility: [facility] Address: [address] [place] [address] Performed By: #### 3 4528-0 #### [facility] CLIA [id number] [address] [place] [address] [place] Platelets (Bld) [#/Vol] 138 10*3/uL Low 150-400 [facility] Comment on above: Order Comment: Speci men Type: BLOOD SPECIMEN Ordering Facility: [facility] Address: [address] [place] [address] Performed By: #### 3 4528-0 #### [facility] CLIA [id number] [address] [place] [address] [place] RBC (Bld) [#/Vol] 3.56 10*6/uL Low 3.90-5.20 [facility] Comment on above: Order Comment: Speci men Type: BLOOD SPECIMEN Ordering Facility: [facility] Address: [address] [place] [address] Performed By: #### 3 4528-0 #### [facility] CLIA [id number] [address] [place] [address] [place] WBC (Bld) [#/Vol] 9.08 10*3/uL Normal 3.70-11.00 [facility] Comment on above: Order Comment: Speci men Type: BLOOD SPECIMEN Ordering Facility: [facility] Address: [address] [place] [address] Performed By: #### 3 4528-0 #### [facility] CLIA [id number] [address] [place], [place] [address] [facility] CONSULT PROGon 08-07-2023 CONSULT PROG HNO ID: [id number] Author: POLO HALEY MD Service: Neurology General Author Type: Physician Type: Consult Progress Note Filed: 08/08/2023 12:24 Note Text: MRI brain negative. Await spinal tap and other blood test. Stable. NEUROLOGY CONSULT PROGRESS NOTE SERVICE DATE: 08/07/2023 SERVICE TIME: 24* PM Current Attending Provider: Meghann Richardson MD Subjective Interval History: Today, Lavinia is Same. D/W family aymhr-czucejot-op-law and their son agreed to proceed they want to proceed with more diagnostic testing= eeg mri and tap. EEG no seizure activity diffusely slow. Objective Physical Examination: Neurological: Mental Status: Apathetic quiet listless. Follows simple directions. Confused. Motor and sensory grossly normal without any myoclonus. Nuchal rigidity in all directions New Labs: WBC Date Value 08/07/2023 9.08 k/uL 08/06/2023 7.47 k/uL 08/05/2023 7.46 k/uL 03/13/2021 5.02 k/uL 03/08/2021 6.54 k/uL 01/06/2021 6.2 K/CUMM RBC Date Value 08/07/2023 3.56 m/uL 08/06/2023 3.60 m/uL 08/05/2023 3.48 m/uL 03/13/2021 2.89 m/uL 03/08/2021 3.23 m/uL 01/06/2021 3.46 M/CU MM Platelet Count Date Value 08/07/2023 138 k/uL 08/06/2023 111 k/uL 08/05/2023 98 k/uL 03/13/2021 230 k/uL 03/08/2021 254 k/uL 01/06/2021 250 K/CU MM BUN Date Value 08/07/2023 25 mg/dL 08/06/2023 55 mg/dL 08/05/2023 44 mg/dL 03/13/2021 37 mg/dL 03/08/2021 39 mg/dL 02/10/2021 33 MG/DL Creatinine Date Value 08/07/2023 3.90 mg/dL 08/06/2023 6.28 mg/dL 08/05/2023 5.01 mg/dL 03/13/2021 2.28 mg/dL 03/08/2021 2.03 mg/dL 02/10/2021 1.83 MG/DL Creatinine (POCT) (mg/dL) Date Value 02/15/2021 2.00 CBC, Coags, BMP, Mg, Phos Recent Labs 08/07/23 0332 08/06/23 0313 08/05/23 0352 INR -- -- 1.1 NA 137 133* 134* K 4.2 5.2* 4.8 CHLOR 100 98 100 CO2 27 24 27 GLUC 127* 97 95 CA 9.2 9.7 9.9 MG -- 2.0 1.9 P -- 7.5* -- Liver Function, Amylase, AND Lipase Recent Labs 08/05/23351 TPROT 5.5* ALB 2.4* ALT 8* AST 16 ALKPHOS 63 TBILI 0.2 Impression/Recommendatio ns Encephalopathy Hold premorbid dementia Decline without a smoking gun. MRI brain EEG and spinal tap. SIGNATURE: Polo Haley MD PATIENT NAME: Lavinia Durand DATE: August 07, 2023 TIME: 2:48 PM [facility] NURSING PROGon 08-07-2023 NURSING PROG HNO ID: [id number] Author: SHANNAN GUTIERREZ, RN Service: Nursing Author Type: Registered Nurse Type: Nursing Progress Note Filed: 08/07/2023 10:14 Note Text: Spoke to Dr Richardson re: son's wishes to make pt DNR, also order to transfer pt to ICU. Dr Richardson stated he will call ICU and pt's son. 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 SIGNATURE: Arabella Robles PT DATE: August 07, 2023 TIME: 9:14 AM -------- PHYSICAL THERAPY MISSED VISIT SERVICE DATE: 08/07/2023 SERVICE TIME: 0845 ROOM: [place] [address] Patient not seen due to Patient Not Available (testing). SIGNATURE: Fracisco Silver PTA PATIENT NAME: Lavinia Durand DATE: August 07, 2023 TIME: 8:46 AM Normal [facility] Basic metabolic 2000 panelon 08-06-2023 Anion gap [Moles/Vol] 11 mmol/L Normal 5-16 [facility] Comment on above: Order Comment: Noelle stevens Type: BLOOD SPECIMEN Ordering Facility: [facility] Address: [address] [place] [address] Performed By: #### 5 8410-2 #### [facility] CLIA [id number] [address] [place] [address] [place] Calcium [Mass/Vol] 9.7 mg/dL Normal 8.5-10.5 [facility] Comment on above: Order Comment: Noelle stevens Type: BLOOD SPECIMEN Ordering Facility: [facility] Address: [address] [place] [address] Performed By: #### 5 8410-2 #### [facility] CLIA [id number] [address] [place] [address] [place] Chloride [Moles/Vol] 98 mmol/L Normal 98-107 [facility] Comment on above: Order Comment: Noelle stevens Type: BLOOD SPECIMEN Ordering Facility: [facility] Address: [address] [place] [address] Performed By: #### 5 8410-2 #### [facility] CLIA [id number] [address] [place] [address] [place] CO2 [Moles/Vol] 24 mmol/L Normal 21-32 [facility] Comment on above: Order Comment: Speci hilda Type: BLOOD SPECIMEN Ordering Facility: [facility] Address: [address] [place] [address] Performed By: #### 5 8410-2 #### [facility] CLIA [id number] [address] [place] [address] [place] Creatinine [Mass/Vol] 6.28 mg/dL High 0.51-0.95 [facility] Comment on above: Order Comment: Speci men Type: BLOOD SPECIMEN Ordering Facility: [facility] Address: [address] [place] [address] Result Comment: Yoly ents receiving either N-Acetylcysteine (NAC) or Metamizole prior to venipuncture, may have falsely depressed results. Performed By: #### 5 8410-2 #### [facility] CLIA [id number] [address] [place] [address] OF [facility] Creatinine and Glomerular filtration rate.predicted panel (S/P/Bld) 6 mL/min/1.73m??? Low >=60 [facility] Comment on above: Order Comment: Speci men Type: BLOOD SPECIMEN Ordering Facility: [facility] Address: [address] [place] [address] Result Comment: Isabelle mated Glomerular Filtration Rate (eGFR) is calculated using the 2020 CKD-EPI creatinine equation. This equation utilizes serum creatinine, sex, and age as parameters. The creatinine assay has traceable calibration to isotope dilution-mass spectrometry. Refer to KDIGO guidelines for clinical interpretation. In patients with unstable renal function, e.g. those with acute kidney injury, the eGFR may not accurately reflect actual GFR. Performed By: #### 5 8410-2 #### [facility] CLIA [id number] [address] [place] [address] [place] Glucose [Mass/Vol] 97 mg/dL Normal 70-100 [facility] Comment on above: Order Comment: Speci men Type: BLOOD SPECIMEN Ordering Facility: [facility] Address: [address] [id number] Result Comment: The [place] Diabetes Association (ADA) provides guidance for cutoff values for fasting glucose and random glucose. The ADA defines fasting as no caloric intake for at least 8 hours. Fasting plasma glucose results between 100 to 125 mg/dL indicate increased risk for diabetes (prediabetes). Fasting plasma glucose results greater than or equal to 126 mg/dL meet the criteria for diagnosis of diabetes. In the absence of unequivocal hyperglycemia, results should be confirmed by repeat testing. In a patient with classic symptoms of hyperglycemia or hyperglycemic crisis, random plasma glucose results greater than or equal to 200 mg/dL meet the criteria for diagnosis of diabetes. Reference: Standards of Medical Care in Diabetes 2016, [place] [employer] Association. Diabetes Care. 2016.39(Suppl 1). Results may be falsely elevated after the administration of Sulfapyridine. Results may be falsely depressed after the administration of Sulfasalazine. Performed By: #### 5 8410-2 #### [facility] CLIA [id number] [address] [place] [address] [place] Potassium [Moles/Vol] 5.2 mmol/L High 3.5-5.1 [facility] Comment on above: Order Comment: Noelle stevens Type: BLOOD SPECIMEN Ordering Facility: [facility] Address: [address] [place] [address] Performed By: #### 5 8410-2 #### [facility] CLIA [id number] [address] [place] [address] [place] Sodium [Moles/Vol] 133 mmol/L Low 136-145 [facility] Comment on above: Order Comment: Noelle stevens Type: BLOOD SPECIMEN Ordering Facility: [facility] Address: [address] [id number] Performed By: #### 5 8410-2 #### [facility] CLIA [id number] [address] [place] [address] [place] Urea nitrogen [Mass/Vol] 55 mg/dL High 7-26 [facility] Comment on above: Order Comment: Alonzoi men Type: BLOOD SPECIMEN Ordering Facility: [facility] Address: [address] [place] [address] Performed By: #### 5 8410-2 #### [facility] CLIA [id number] [address] [place], [place] [address] [place] CASE MANAGEMon 08-06-2023 CASE MANAGEM HNO ID: [id number] Author: LUZ BELTRAN LSW Service: ? Author Type: Bed Control Specialist Type: Care Mgt Progress Note Filed: 08/06/2023 15:27 Note Text: CARE MANAGEMENT PROGRESS NOTE SERVICE DATE: 08/06/2023 SERVICE TIME: 3:20 PM LOS: 2 days Pt with Continuing encephalopathy-EEG, MRI brain and spinal pending Neurology consult stating - Probable premorbid dementia to be assessed as an outpatient Pt resides at [facility], [facility] and get sHD MWF at [facility]. SW contacted her daughter Hedy to confirm they wish patient to return to this SNF, FOC given. [facility] has reached out to check on status of pt and her anticipated discharge, they are stating pt can return whenever medically cleared. CM to follow for d/c planning needs AND await return call from family. SIGNATURE: WALTER Edwards PATIENT NAME: Lavinia Durand DATE: August 06, 2023 TIME: 3:20 PM PAGER/CONTACT #: [phone] Normal [facility] CBC W Auto Differential pane l (Bld)on 08-06-2023 Basophils (Bld) [#/Vol] 0.03 10*3/uL Normal <0.11 [facility] Comment on above: Order Comment: Speci men Type: BLOOD SPECIMEN Ordering Facility: [facility] Address: [address] [place] [address] Performed By: #### 5 8410-2 #### [facility] CLIA [id number] [address] [place], [place] [address] [facility] [place] Basophils/100 WBC (Bld) 0.4 % Normal [facility] Comment on above: Order Comment: Speci men Type: BLOOD SPECIMEN Ordering Facility: [facility] Address: [address] [place] [address] Performed By: #### 5 8410-2 #### [facility] CLIA [id number] [address] [place] [address] [place] Differential cell count method Nom (Bld) Auto Normal [facility] Comment on above: Order Comment: Speci men Type: BLOOD SPECIMEN Ordering Facility: [facility] Address: [address] [place] [address] Performed By: #### 5 8410-2 #### [facility] CLIA [id number] [address] [place] [address] [place] Eosinophils (Bld) [#/Vol] 0.23 10*3/uL Normal <0.46 [facility] Comment on above: Order Comment: Speci men Type: BLOOD SPECIMEN Ordering Facility: [facility] Address: [address] [place] [address] Performed By: #### 5 8410-2 #### [facility] CLIA [id number] [address] [place] [address] [place] Eosinophils/100 WBC (Bld) 3.1 % Normal [facility] Comment on above: Order Comment: Speci men Type: BLOOD SPECIMEN Ordering Facility: [facility] Address: [address] [place] [address] Performed By: #### 5 8410-2 #### [facility] CLIA [id number] [address] [place] [address] [place] Erythrocyte distribution width (RBC) [Ratio] 16.4 % High 11.5-15.0 [facility] Comment on above: Order Comment: Speci men Type: BLOOD SPECIMEN Ordering Facility: [facility] Address: [address] [place] [address] Performed By: #### 5 8410-2 #### [facility] CLIA [id number] [address] [place] [address] [place] [facility] [place] Hematocrit (Bld) [Volume fraction] 31.6 % Low 36.0-46.0 [facility] Comment on above: Order Comment: Speci men Type: BLOOD SPECIMEN Ordering Facility: [facility] Address: [address] [place] [address] Performed By: #### 5 8410-2 #### [facility] CLIA [id number] [address] [place], [place] [address] [place] Hemoglobin (Bld) [Mass/Vol] 10.4 g/dL Low 11.5-15.5 [facility] Comment on above: Order Comment: Speci men Type: BLOOD SPECIMEN Ordering Facility: [facility] Address: [address] [place] [address] Performed By: #### 5 8410-2 #### [facility] CLIA [id number] [address] [place] [address] [place] Immature granulocytes (Bld) [#/Vol] 0.07 10*3/uL Normal <0.10 [facility] Comment on above: Order Comment: Speci men Type: BLOOD SPECIMEN Ordering Facility: [facility] Address: [address] [place] [address] Performed By: #### 5 8410-2 #### [facility] CLIA [id number] [address] [place] [address] [place] Immature granulocytes/100 WBC (Bld) 0.9 % Normal [facility] Comment on above: Order Comment: Speci men Type: BLOOD SPECIMEN Ordering Facility: [facility] Address: [address] [place] [address] Performed By: #### 5 8410-2 #### [facility] CLIA [id number] [address] [place] [address] [place] Lymphocytes (Bld) [#/Vol] 1.16 10*3/uL Normal 1.00-4.00 [facility] Comment on above: Order Comment: Speci men Type: BLOOD SPECIMEN Ordering Facility: [facility] Address: [address] [place] [address] Performed By: #### 5 8410-2 #### [facility] CLIA [id number] [address] [place] [address] [place] Lymphocytes/100 WBC (Bld) 15.5 % Normal [facility] Comment on above: Order Comment: Speci men Type: BLOOD SPECIMEN Ordering Facility: [facility] Address: [address] [place] [address] Performed By: #### 5 8410-2 #### [facility] CLIA [id number] [address] [place] [address] [place] MCH (RBC) [Entitic mass] 28.9 pg Normal 26.0-34.0 [facility] Comment on above: Order Comment: Speci men Type: BLOOD SPECIMEN Ordering Facility: [facility] Address: [address] [place] [address] Performed By: #### 5 8410-2 #### [facility] CLIA [id number] [address] [place] [address] [place] MCHC (RBC) [Mass/Vol] 32.9 g/dL Normal 30.5-36.0 [facility] Comment on above: Order Comment: Speci men Type: BLOOD SPECIMEN Ordering Facility: [facility] Address: [address] [place] [address] Performed By: #### 5 8410-2 #### [facility] CLIA [id number] [address] [place] [address] [place] MCV (RBC) [Entitic vol] 87.8 fL Normal 80.0-100.0 [facility] Comment on above: Order Comment: Speci men Type: BLOOD SPECIMEN Ordering Facility: [facility] Address: [address] [place] [address] Performed By: #### 5 8410-2 #### [facility] CLIA [id number] [address] [place] [address] [place] Monocytes (Bld) [#/Vol] 0.67 10*3/uL Normal <0.87 [facility] Comment on above: Order Comment: Speci men Type: BLOOD SPECIMEN Ordering Facility: [facility] Address: [address] [place] [address] Performed By: #### 5 8410-2 #### [facility] CLIA [id number] [address] [place] [address] [place] Monocytes/100 WBC (Bld) 9.0 % Normal [facility] Comment on above: Order Comment: Speci men Type: BLOOD SPECIMEN Ordering Facility: [facility] Address: [address] [place] [address] Performed By: #### 5 8410-2 #### [facility] CLIA [id number] [address] [place] [address] [place] Neutrophils (Bld) [#/Vol] 5.31 10*3/uL Normal 1.45-7.50 [facility] Comment on above: Order Comment: Speci men Type: BLOOD SPECIMEN Ordering Facility: [facility] Address: [address] [place] [address] Performed By: #### 5 8410-2 #### [facility] CLIA [id number] [address] [place] [address] [place] Neutrophils/100 WBC (Bld) 71.1 % Normal [facility] Comment on above: Order Comment: Speci men Type: BLOOD SPECIMEN Ordering Facility: [facility] Address: [address] [place] [address] Performed By: #### 5 8410-2 #### [facility] CLIA [id number] [address] [place] [address] [place] Nucleated RBC (Bld) [#/Vol] 10*3/uL Normal <0.01 [facility] Comment on above: Order Comment: Speci men Type: BLOOD SPECIMEN Ordering Facility: [facility] Address: [address] [place] [address] Performed By: #### 5 8410-2 #### [facility] CLIA [id number] [address] [place] [address] [place] Nucleated RBC/100 WBC (Bld) [Ratio] 0.0 /100 WBC Normal [facility] Comment on above: Order Comment: Speci men Type: BLOOD SPECIMEN Ordering Facility: [facility] Address: [address] [place] [address] Performed By: #### 5 8410-2 #### [facility] CLIA [id number] [address] [place], [place] [address] [place] Platelet mean volume (Bld) [Entitic vol] 10.5 fL Normal 9.0-12.7 [facility] Comment on above: Order Comment: Speci men Type: BLOOD SPECIMEN Ordering Facility: [facility] Address: [address] [place], [place] [id number] Performed By: #### 5 8410-2 #### [facility] CLIA [id number] [address] [place] [address] [place] Platelets (Bld) [#/Vol] 111 10*3/uL Low 150-400 [facility] Comment on above: Order Comment: Speci men Type: BLOOD SPECIMEN Ordering Facility: [facility] Address: [address] [place] [address] Performed By: #### 5 8410-2 #### [facility] CLIA [id number] [address] [place] [address] [place] RBC (Bld) [#/Vol] 3.60 10*6/uL Low 3.90-5.20 [facility] Comment on above: Order Comment: Speci men Type: BLOOD SPECIMEN Ordering Facility: [facility] Address: [facility] [place] [facility] [place] [address] Performed By: #### 5 8410-2 #### [facility] CLIA [id number] [address] [place] [address] [place] WBC (Bld) [#/Vol] 7.47 10*3/uL Normal 3.70-11.00 [facility] Comment on above: Order Comment: Speci men Type: BLOOD SPECIMEN Ordering Facility: [facility] Address: [facility] [place] [facility] [place] [address] Performed By: #### 5 8410-2 #### [facility] CLIA [id number] [address] [place], [place] [address] [facility] [place] CONSULT PROGon 08-06-2023 CONSULT PROG HNO ID: [id number] Author: POLO HALEY MD Service: Neurology General Author Type: Physician Type: Consult Progress Note Filed: 08/06/2023 12:02 Note Text: NEUROLOGY CONSULT PROGRESS NOTE SERVICE DATE: 08/06/2023 SERVICE TIME: 12 PM Current Attending Provider: Meghann Richardson MD Subjective Interval History: Today, Lavinia is improved for the same. Listless confused why it. Denies headache and neck pain. Discussed case with daughter who is an MD yesterday. Patient may be premorbidly demented. Objective Physical Examination: Neurological: Mental Status: Quite listless does look at me difficult to get her to follow directions no distress, no delirium. Regarding nuchal rigidity it is rigid in all directions including flexion and extension. New Labs: WBC Date Value 08/06/2023 7.47 k/uL 08/05/2023 7.46 k/uL 05/13/2023 6.27 k/uL 03/13/2021 5.02 k/uL 03/08/2021 6.54 k/uL 01/06/2021 6.2 K/CUMM RBC Date Value 08/06/2023 3.60 m/uL 08/05/2023 3.48 m/uL 05/13/2023 2.64 m/uL 03/13/2021 2.89 m/uL 03/08/2021 3.23 m/uL 01/06/2021 3.46 M/CU MM Platelet Count Date Value 08/06/2023 111 k/uL 08/05/2023 98 k/uL 05/13/2023 131 k/uL 03/13/2021 230 k/uL 03/08/2021 254 k/uL 01/06/2021 250 K/CU MM BUN Date Value 08/06/2023 55 mg/dL 08/05/2023 44 mg/dL 05/13/2023 21 mg/dL 03/13/2021 37 mg/dL 03/08/2021 39 mg/dL 02/10/2021 33 MG/DL Creatinine Date Value 08/06/2023 6.28 mg/dL 08/05/2023 5.01 mg/dL 05/13/2023 3.08 mg/dL 03/13/2021 2.28 mg/dL 03/08/2021 2.03 mg/dL 02/10/2021 1.83 MG/DL Creatinine (POCT) (mg/dL) Date Value 02/15/2021 2.00 CBC, Coags, BMP, Mg, Phos Recent Labs 08/06/23 0313 08/05/23 0352 INR -- 1.1 NA 133* 134* K 5.2* 4.8 CHLOR 98 100 CO2 24 27 GLUC 97 95 CA 9.7 9.9 MG 2.0 1.9 P 7.5* -- Liver Function, Amylase, AND Lipase Recent Labs 08/05/23 0352 TPROT 5.5* ALB 2.4* ALT 8* AST 16 ALKPHOS 63 TBILI 0.2 Impression/Recommendatio ns Continuing encephalopathy-EEG MRI brain and spinal Probable premorbid dementia to be assessed as an outpatient SIGNATURE: Polo Haley MD PATIENT NAME: Lavinia Durand DATE: August 06, 2023 TIME: 12:00 PM [facility] Magnesium SerPl-mCncon 08-05 Magnesium [Mass/Vol] 2.0 mg/dL Normal 1.6-2.6 [facility] Comment on above: Order Comment: Speci men Type: BLOOD SPECIMEN Ordering Facility: [facility] Address: [address] [place] [address] Performed By: #### 3 4528-0 #### [facility] CLIA [id number] [address] [place] [address] OF [facility] NURSING PROGon 08-06-2023 NURSING PROG HNO ID: [id number] Author: MARIANA KLINE, RN Service: Dialysis Author Type: Registered Nurse Type: Nursing Progress Note Filed: 08/06/2023 15:56 Note Text: Pt continued anxiety pulling at needles, Pt txt terminated 25 min early due to safety concerns, 1.4 net fluid removalm completed, BP remained stable w some tachycardia noted end of txt, +B/T, dressing dry sterile intact, report given, Dr notified [facility] NUTRITIONon 08-06-2023 NUTRITION HNO ID: [id number] Author: SALLY OSHEA RD Service: ? Author Type: Registered Dietitian Type: Nutrition Filed: 08/06/2023 12:21 Note Text: NUTRITION THERAPY INITIAL ASSESSMENT SERVICE DATE: 08/06/2023 SERVICE TIME: 1030 Nutrition Assessment: Recommended Malnutrition Diagnosis: Severe Protein-Calorie Malnutrition In the context of: Chronic Illness or Injury Based on: Unintentional Weight Loss, Subcutaneous Fat Loss Nutrition Diagnosis: Problem: Increased nutrient needs Related to: Chronic illness As evidenced by: Depletion of fat/muscle stores, Medical condition, Medications and treatments, Weight loss Estimated kilocalorie needs: 3040-5609 Calorie Calculation Method: 30-35 kcals/kg Estimated protein needs (grams): 60-70 Grams protein determined by: 1.2 - 1.5 g/kg Care Plan: Follow for diet advancement to goal Once able to safely advance pts diet, recommend Supplements: Nepro TID. Refer to: Speech/Language Orders written and provider collaborated with: Discussed w Dr Richardson Monitor and Evaluation: Meet greater than 75% of estimated needs, Monitor fluid/electrolyte balance, Monitor labs, I/Os, vital signs, weight HPI: Pt admitted from [facility] for AMS, frequent falls, debility. MRI pending. PMH: ESRD w HD. DM, HTN, HxCA, osteoporosis, HCL. Per phone conversation with [facility] RN, unable to recall pts po intake, UBW 95lbs on 07/24/23, and 103lbs 08/04/23. RN unable to recall pts records other than wts. Per pts physical chart, pt was on a renal diet, with regular texture with PO Novasource Renal 120mL BID. Attempted calling pts daughter in law, Marni, unfortunately no answer. Pts RN voiced pt unable to swallow pills re: AMS. Discussed w Dr Richardson. Intake History: Nutrition Intake Prior to Admission: Unable to determine Current Nutrition Intake: NPO Current Intake Over time: (x1 d) Diet Orders (From admission, onward) Start Ordered 08/06/23 0000 DIET NPO START NOW Question Answer Comment NPO Restrictions FOR PROCEDURE NPO Restrictions EXCEPT MEDS 08/05/23 0172 Anthropometrics: Height: 149.9 cm (4' 11) Weight: 47 kg (103 lb 9.9 oz) Dosing Weight: 47 kg (103 lb 9.9 oz) Usual Weight: 52.3 kg (115 lb 4.8 oz) 05/05/23 Usual Weight Obtained From: Chart Review Body mass index is 20.93 kg/m?. Weight change percentage over time: 10% loss x 3mo Weight Change: Clinically signficant weight loss (wt fluctuations expected given ESRD on HD, CHF, Lasix therapy) Physical Exam: Subcutaneous fat loss: Severe Muscle loss: Moderate Edema/Ascites: No edema GI Symptoms: Unable to determine at this time Potential Signs of Inflammation: Chronic condition, Hypoalbuminemia, Hyperglycemia ESRD on HD, HTN, HCL, DM, CHF, CA. MNT Billing: $ Initial Assessment: 16-30 minutes SIGNATURE: Sally Oshea RD PATIENT NAME: Lavinia Durand DATE: August 06, 2023 TIME: 11:40 AM Normal [facility] Phosphate SerPl-mCncon 08-05 Phosphate [Mass/Vol] 7.5 mg/dL High 2.5-4.9 [facility] Comment on above: Order Comment: Speci men Type: BLOOD SPECIMEN Ordering Facility: [facility] Address: [address] [place] [address] Result Comment: Elev ated m-protein (paraprotein) levels in the serum may be exhibited in patients with monoclonal gammopathies, causing falsely elevated inorganic phosphorus results. Performed By: #### 3 4528-0 #### [facility] CLIA [id number] [facility] [place] [address] [place] US RENAL ARTERY [facility] n 08-06-2023 RENAL ARTERY [facility] Non-Invasive Vascular Laboratory [facility] Renal or Mesenteric Duplex Bilateral/Complete Date of service/time: 08/06/2023 7:21:50 AM Name: MS. LAVINIA DURAND Date of : 1940 Age: 82 years Gender: F Clinical Indication New onset or worsening hypertension. TECHNIQUE -------- A visceral duplex ultrasound examination was performed, including grayscale imaging and color Doppler and spectral Doppler examination of the below mentioned arteries and veins. FINDINGS -------- Aorta at renals PSV: 98 cm/s. EDV: 22 cm/s. Left renal artery origin PSV: 77 cm/s. EDV: 0 cm/s. Left renal artery proximal PSV: 95 cm/s. EDV: 0 cm/s. Left renal artery mid PSV: 67 cm/s. EDV: 0 cm/s. Left renal artery distal PSV: 44 cm/s. EDV: 0 cm/s. Left renal artery to aortic ratio (RAR): 1.0 Left kidney: Size: 9.8 cm. Multiple cystic lesions visualized. Left parenchyma resistive index and acceleration time Upper pole High resistive signal noted with no end diastolic velocities. Mid pole High resistive signal noted with no end diastolic velocities. Lower pole High resistive signal noted with no end diastolic velocities. Left renal vein patent. IMPRESSION Portable exam. RIGHT RENAL Patient has had a right nephroureterectomy. LEFT RENAL Left renal artery: 0-59% stenosis. No evidence of hemodynamically significant stenosis. There is no end diastolic velocities throughout, this is consistent with chronic renal failure. Technologist: Ira Clark Ordering physician: LISETTE CASON Interpreting physician: Kyle Lyon MD Final CC [employer] [facility] Image : [id number] See Link below for Image Normal [facility] Basic metabolic 2000 panelon 08-05-2023 Anion gap [Moles/Vol] 7 mmol/L Normal 5-16 [facility] Comment on above: Order Comment: Speci men Type: BLOOD SPECIMEN Ordering Facility: [facility] Address: [address] [place] [address] Performed By: #### 2 4321-2, 54688-3, 30630-6, 3016-3, 77992-6, 5195-3 #### [facility] CLIA [id number] [facility] [address] [address] [place] Calcium [Mass/Vol] 9.9 mg/dL Normal 8.5-10.5 [facility] Comment on above: Order Comment: Speci men Type: BLOOD SPECIMEN Ordering Facility: [facility] Address: [address] [place] [address] Performed By: #### 2 4321-2, 29832-0, 85343-8, 3016-3, 30373-0, 5195-3 #### [facility] CLIA [id number] [address] [place], [place] [address] [place] Chloride [Moles/Vol] 100 mmol/L Normal 98-107 [facility] Comment on above: Order Comment: Speci men Type: BLOOD SPECIMEN Ordering Facility: [facility] Address: [address] [place] [address] Performed By: #### 2 4321-2, 38527-9, 91633-4, 3016-3, 92611-7, 5-3 #### [facility] CLIA [id number] [address] [place], [place] [address] [place] CO2 [Moles/Vol] 27 mmol/L Normal 21-32 [facility] Comment on above: Order Comment: Speci men Type: BLOOD SPECIMEN Ordering Facility: [facility] Address: [address] [place] [address] Performed By: #### 2 4321-2, 25643-4, 90346-7, 6-3, 62322-0, 5195-3 #### [facility] CLIA [id number] [address] [place], [place] [address] [place] Creatinine [Mass/Vol] 5.01 mg/dL High 0.51-0.95 [facility] Comment on above: Order Comment: Speci men Type: BLOOD SPECIMEN Ordering Facility: [facility] Address: [address] [place] [address] Result Comment: Yoly ents receiving either N-Acetylcysteine (NAC) or Metamizole prior to venipuncture, may have falsely depressed results. Performed By: #### 2 4321-2, 60704-7, 48288-1, 3016-3, 36664-5, 5195-3 #### [facility] CLIA [id number] [address] [place], [place] [address] [place] Creatinine and Glomerular filtration rate.predicted panel (S/P/Bld) 8 mL/min/1.73m??? Low >=60 [facility] Comment on above: Order Comment: Noelle stevens Type: BLOOD SPECIMEN Ordering Facility: [facility] Address: [address] [place] [address] Result Comment: Isabelle mated Glomerular Filtration Rate (eGFR) is calculated using the 2020 CKD-EPI creatinine equation. This equation utilizes serum creatinine, sex, and age as parameters. The creatinine assay has traceable calibration to isotope dilution-mass spectrometry. Refer to KDIGO guidelines for clinical interpretation. In patients with unstable renal function, e.g. those with acute kidney injury, the eGFR may not accurately reflect actual GFR. Performed By: #### 2 4321-2, 80126-2, 51970-9, 6-3, 43838-2, 5195-3 #### [facility] CLIA [id number] [address] [place], [place] [address] [place] Glucose [Mass/Vol] 95 mg/dL Normal 70-100 [facility] Comment on above: Order Comment: Noelle stevens Type: BLOOD SPECIMEN Ordering Facility: [facility] Address: [address] [place] [address] Result Comment: The [place] Diabetes Association (ADA) provides guidance for cutoff values for fasting glucose and random glucose. The ADA defines fasting as no caloric intake for at least 8 hours. Fasting plasma glucose results between 100 to 125 mg/dL indicate increased risk for diabetes (prediabetes). Fasting plasma glucose results greater than or equal to 126 mg/dL meet the criteria for diagnosis of diabetes. In the absence of unequivocal hyperglycemia, results should be confirmed by repeat testing. In a patient with classic symptoms of hyperglycemia or hyperglycemic crisis, random plasma glucose results greater than or equal to 200 mg/dL meet the criteria for diagnosis of diabetes. Reference: Standards of Medical Care in Diabetes 2016, [place] [employer]. Diabetes Care. 2016.39(Suppl 1). Results may be falsely elevated after the administration of Sulfapyridine. Results may be falsely depressed after the administration of Sulfasalazine. Performed By: #### 2 4321-2, 68632-9, 41096-7, 6-3, 24373-2, 5194-3 #### [facility] CLIA [id number] [address] [place] [address] [place] Potassium [Moles/Vol] 4.8 mmol/L Normal 3.5-5.1 [facility] Comment on above: Order Comment: Speci men Type: BLOOD SPECIMEN Ordering Facility: [facility] Address: [address] [place] [address] Performed By: #### 2 4321-2, 71484-2, 87640-8, 3015-3, 66671-5, 5194-3 #### [facility] CLIA [id number] [address] [place], [place] [address] [place] Sodium [Moles/Vol] 134 mmol/L Low 136-145 [facility] Comment on above: Order Comment: Speci hilda Type: BLOOD SPECIMEN Ordering Facility: [facility] Address: [address] [place] [address] Performed By: #### 2 4321-2, 59065-6, 38453-3, 3015-3, 39098-5, 5194-3 #### [facility] CLIA [id number] [address] [place], [place] [address] [place] Urea nitrogen [Mass/Vol] 44 mg/dL High 7-26 [facility] Comment on above: Order Comment: Speci men Type: BLOOD SPECIMEN Ordering Facility: [facility] Address: [address] [place] [address] Performed By: #### 2 4321-2, 66169-6, 80334-3, 3015-3, 91136-7, 5194-3 #### [facility] CLIA [id number] [address] [place], [place] [address] [place] CBC panel Auto (Bld)on 08-04 Erythrocyte distribution width (RBC) [Ratio] 16.8 % High 11.5-15.0 [facility] Comment on above: Order Comment: Speci men Type: BLOOD SPECIMEN Ordering Facility: [facility] Address: [address] [place] [address] Performed By: #### 5 8410-2 #### [facility] CLIA [id number] [address] [place] [address] [place] Hematocrit (Bld) [Volume fraction] 30.5 % Low 36.0-46.0 [facility] Comment on above: Order Comment: Speci men Type: BLOOD SPECIMEN Ordering Facility: [facility] Address: [address] [place] [address] Performed By: #### 5 8410-2 #### [facility] CLIA [id number] [address] [place] [address] [place] Hemoglobin (Bld) [Mass/Vol] 10.2 g/dL Low 11.5-15.5 [facility] Comment on above: Order Comment: Speci men Type: BLOOD SPECIMEN Ordering Facility: [facility] Address: [address] [place] [address] Performed By: #### 5 8410-2 #### [facility] CLIA [id number] [address] [place] [address] [place] MCH (RBC) [Entitic mass] 29.3 pg Normal 26.0-34.0 [facility] Comment on above: Order Comment: Speci men Type: BLOOD SPECIMEN Ordering Facility: [facility] Address: [address] [place] [address] Performed By: #### 5 8410-2 #### [facility] CLIA [id number] [address] [place] [address] [place] MCHC (RBC) [Mass/Vol] 33.4 g/dL Normal 30.5-36.0 [facility] Comment on above: Order Comment: Speci men Type: BLOOD SPECIMEN Ordering Facility: [facility] Address: [address] [place] [address] Performed By: #### 5 8410-2 #### [facility] CLIA [id number] [address] [place] [address] [place] MCV (RBC) [Entitic vol] 87.6 fL Normal 80.0-100.0 [facility] Comment on above: Order Comment: Speci men Type: BLOOD SPECIMEN Ordering Facility: [facility] Address: [address] [place] [address] Performed By: #### 5 8410-2 #### [facility] CLIA [id number] [address] [place] [address] [place] Nucleated RBC (Bld) [#/Vol] 10*3/uL Normal <0.01 [facility] Comment on above: Order Comment: Speci men Type: BLOOD SPECIMEN Ordering Facility: [facility] Address: [address] [place] [address] Performed By: #### 5 8410-2 #### [facility] CLIA [id number] [address] [place] [address] [place] Platelet mean volume (Bld) [Entitic vol] 9.5 fL Normal 9.0-12.7 [facility] Comment on above: Order Comment: Speci men Type: BLOOD SPECIMEN Ordering Facility: [facility] Address: [address] [place] [address] Performed By: #### 5 8410-2 #### [facility] CLIA [id number] [address] [place] [address] [place] Platelets (Bld) [#/Vol] 98 10*3/uL Low 150-400 M [facility] Comment on above: Order Comment: Speci men Type: BLOOD SPECIMEN Ordering Facility: [facility] Address: [address] [place] [address] Result Comment: No c lot detected. Performed By: #### 5 8410-2 #### [facility] CLIA [id number] [address] [place] [address] [place] RBC (Bld) [#/Vol] 3.48 10*6/uL Low 3.90-5.20 [facility] Comment on above: Order Comment: Speci men Type: BLOOD SPECIMEN Ordering Facility: [facility] Address: [address] [place] [address] Performed By: #### 5 8410-2 #### [facility] CLIA [id number] [address] [place], [place] [address] [facility] WBC (Bld) [#/Vol] 7.46 10*3/uL Normal 3.70-11.00 [facility] Comment on above: Order Comment: Speci men Type: BLOOD SPECIMEN Ordering Facility: [facility] Address: [address] [place] [address] Performed By: #### 5 8410-2 #### [facility] CLIA [id number] [address] [place] [address] [facility] CONSULTon 08-05-2023 CONSULT HNO ID: [id number] Author: LISETTE CASON MD Service: Nephrology Author Type: Physician Type: Consults Filed: 08/05/2023 15:47 Note Text: CONSULT: NEPHROLOGY SERVICE SERVICE DATE: 08/05/2023 SERVICE TIME: 3:43 PM REASON FOR CONSULT: I am asked to see this patient in consultation for my opinion regarding ESRD. My recommendations will be communicated by way of shared medical record. REQUESTING PHYSICIAN: Primary team PRIMARY CARE PHYSICIAN: Shira Roy MD Subjective CHIEF COMPLAINT: Weakness and generalized debility HPI: Ms. 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 She has a functional left upper arm AV access. She dialyzes at [facility] on Friday, Friday and Friday schedule. She was brought to the hospital because of frequent falls and debility. She is currently very frail, unable to converse. Most of the history was obtained by reviewing the chart. Reportedly she was recently at was to the hospital for hypertensive urgency and required IV Cardene drip. She was discharged to SNF after blood pressure medications were adjusted. When she came to this hospital, she again experienced hypertensive urgency and is now in [facility] I on Cardene drip. Home medications were resumed. She is receiving doxazosin, carvedilol, nifedipine. On assessment, she is rather lethargic. She has no evidence of fluid overload. She appears actually dry. Labs today showed sodium of 134, BUN 44, creatinine 5.01. She received dialysis yesterday. PAST MEDICAL HISTORY Diagnosis Date Acute on chronic diastolic congestive heart failure (HCC) 11/23/2021 Arthritis Diabetes (HCC) GERD (gastroesophageal reflux disease) Glaucoma Hypercholesteremia Hypertension Hypothyroidism Macular degeneration of right eye Osteoporosis Sciatica Stage 3b chronic kidney disease (HCC) 03/08/2021 PAST SURGICAL HISTORY Procedure Laterality Date CATARACT EXTRACTION HX Bilateral PAST SURGICAL HISTORY OF 11/03/2020 right nephroureterectomy REPAIR WRIST FRACTURE Left 2019 ORIF left diatal radius SLING OPER STRES INCONTINENCE 1997 STAB PHLEBECTOMY VARICOSE VEINS >20 1974 TOTAL ABDOM HYSTERECTOMY 1977 TOTAL KNEE REPLACEMENT 2006 Left FAMILY HISTORY Problem Relation Age of Onset Anesthesia Problems No Family History Social History Tobacco Use Smoking status: Never Smokeless tobacco: Never Vaping Use Vaping Use: Never used Substance Use Topics Alcohol use: No Drug use: No MEDICATIONS: Prior to Admission Medications acetaminophen (TYLENOL) 325 mg tablet, Take 650 mg by mouth daily at bedtime., Disp: , Rfl: aluminum-magnesium hydroxide (MAG-AL) 200-200 mg/5 mL suspension, Take 30 mL by mouth every 4 hours as needed (GI distress)., Disp: , Rfl: furosemide (LASIX) 40 mg tablet, Take 60 mg by mouth every . Every in the morning AND evening for fluid retention, Disp: , Rfl: latanoprost (XALATAN) 0.005 % ophthalmic solution, Use 1 Drop in both eyes daily at bedtime., Disp: , Rfl: lidocaine (LIDODERM) 5 %, Apply 1 Patch as directed every 24 hours. Apply to back, Disp: , Rfl: magnesium hydroxide (MILK OF MAGNESIA) 400 mg/5 mL suspension, Take 30 mL by mouth once daily as needed for constipation., Disp: , Rfl: Rakadmbgptltp-Edxckxku-N utein (MULTIVITAMIN 50 PLUS) tab, Take 1 tablet by mouth once daily., Disp: , Rfl: icosapent ethyl (VASCEPA) 1 gram capsule, Take 2 g by mouth two times a day with meals., Disp: , Rfl: ASCORBIC ACID ORAL, Take 1,000 mg by mouth once daily., Disp: , Rfl: bisacodyl (DULCOLAX, BISACODYL,) 10 mg supp, 10 mg by RECTAL route once daily as needed for constipation., Disp: , Rfl: folic acid 1 mg tablet, Take 1 mg by mouth once daily., Disp: , Rfl: gabapentin (NEURONTIN) 100 mg capsule, Take 200 mg by mouth once daily., Disp: , Rfl: HYDROcodone-acetaminophe n (NORCO) 5-325 mg per tablet, Take 1 tablet by mouth every 6 hours as needed for pain., Disp: , Rfl: NIFEdipine XL (ADALAT CC) 60 mg 24 hr tablet, Take 60 mg by mouth two times a day., Disp: , Rfl: doxazosin (CARDURA) 2 mg tablet, Take 2 mg by mouth two times a day., Disp: , Rfl: carvedilol (COREG) 12.5 mg tablet, Take 1 tablet by mouth twice daily with meals., Disp: 180 tablet, Rfl: [address] (PROTONIX) 40 mg tablet, Take 40 mg by mouth once daily., Disp: , Rfl: famotidine (PEPCID) 40 mg tablet, Take 40 mg by mouth once daily., Disp: , Rfl: levothyroxine (SYNTHROID) 25 mcg tablet, Take 25 mcg by mouth daily before breakfast., Disp: , Rfl: Current Facility-Administered Medications Medication Dose Route Frequency cefTRIAXone 1 g in D5W 100 mL Vial-Bag (ROCEPHIN) 1 g INTRAVENOUS q 24 H dextrose 40 % 15 g 15 g ORAL PRN Or glucagon 1 mg injection 1 mg INTRAMUSCULAR PRN Or dextrose 10% iv bolus 12.5 g INTRAVENOUS PRN insulin lispro injection (rapid acting) (ADMElog) SUBCUTANEOUS w MEALS icos (more content not included)... [facility] CONSULT HNO ID: [id number] Author: POLO HALEY MD Service: Neurology General Author Type: Physician Type: Consults Filed: 08/05/2023 11:37 Note Text: INITIAL CONSULT - GENERAL NEUROLOGY SERVICE DATE: 08/05/2023 SERVICE TIME: 11:32 AM Team Requesting Consult: Hospitalist Current Attending Provider: Meghann Richardson MD Neurology was asked by the hospitalist team to evaluate Lavinia Durand, a 82 year old female for a chief complaint of altered mental status Reason for Evaluation: Confused Subjective HPI: This is Ms. Lavinia Durand a 82 year old female who presented to the [facility] initially with a chief complaint confusion for the last few days. Most information obtained from the chart and they obtained from the family members. She is quiet and does not have any formal complaints. She is not sure why she is here. She has a UTI and she has bladder cancer. No mention of any focal motor or sensory loss or headaches. CT brain not noticed Current Facility-Administered Medications Medication Dose Route Frequency cefTRIAXone 1 g in D5W 100 mL Vial-Bag (ROCEPHIN) 1 g INTRAVENOUS q 24 H dextrose 40 % 15 g 15 g ORAL PRN Or glucagon 1 mg injection 1 mg INTRAMUSCULAR PRN Or dextrose 10% iv bolus 12.5 g INTRAVENOUS PRN insulin lispro injection (rapid acting) (ADMElog) SUBCUTANEOUS w MEALS icosapent ethyl 2 g cap(s) (VASCEPA) 2 g ORAL BID w MEALS [START ON 08/07/2023] furosemide (LASIX) tab(s) 60 mg 60 mg ORAL q JOCELYN HYDROcodone 5 mg - acetaminophen 325 mg tablet (NORCO) 1 tablet ORAL q [address] 40 mg tab(s) (PROTONIX) 40 mg ORAL DAILY doxazosin 2 mg tab(s) (CARDURA) 2 mg ORAL BID carvedilol 12.5 mg tab(s) (COREG) 12.5 mg ORAL BID w MEALS famotidine 40 mg tab(s) (PEPCID) 40 mg ORAL DAILY gabapentin 200 mg cap(s) (NEURONTIN) 200 mg ORAL DAILY folic acid 1 mg tab(s) 1 mg ORAL DAILY levothyroxine 25 mcg tab(s) (SYNTHROID) 25 mcg ORAL BEFORE BREAKFAST DAILY NaCl 0.9% iv flush bag 20 mL INTRAVENOUS PRN ondansetron 4 mg tab(s) (ZOFRAN) 4 mg ORAL q 6 H PRN Or ondansetron (PF) 4 mg injection (ZOFRAN) 4 mg INTRAVENOUS q 6 H PRN acetaminophen 650 mg tab(s) (TYLENOL) 650 mg ORAL q 6 H PRN labetalol 10 mg injection (NORMODYNE) 10 mg INTRAVENOUS q 4 H PRN hydrALAZINE 10 mg injection (APRESOLINE) 10 mg INTRAVENOUS q 4 H PRN NIFEdipine ER 60 mg tab(S) (PROCARDIA XL) 60 mg ORAL BID iv contrast (radiology procedure) INTRAVENOUS DIRECTED PRN PAST MEDICAL HISTORY Diagnosis Date Acute on chronic diastolic congestive heart failure (HCC) 11/23/2021 Arthritis Diabetes (HCC) GERD (gastroesophageal reflux disease) Glaucoma Hypercholesteremia Hypertension Hypothyroidism Macular degeneration of right eye Osteoporosis Sciatica Stage 3b chronic kidney disease (HCC) 03/08/2021 PAST SURGICAL HISTORY Procedure Laterality Date CATARACT EXTRACTION HX Bilateral PAST SURGICAL HISTORY OF 11/03/2020 right nephroureterectomy REPAIR WRIST FRACTURE Left 2019 ORIF left diatal radius SLING OPER STRES INCONTINENCE 1998 STAB PHLEBECTOMY VARICOSE VEINS >20 1974 TOTAL ABDOM HYSTERECTOMY 1977 TOTAL KNEE REPLACEMENT 2006 Left Social History Tobacco Use Smoking status: Never Smokeless tobacco: Never Vaping Use Vaping Use: Never used Substance Use Topics Alcohol use: No Drug use: No FAMILY HISTORY Problem Relation Age of Onset Anesthesia Problems No Family History ALLERGIES Allergen Reactions Atorvastatin Intolerance Severe fatigue Humira [Adalimumab] Rash REVIEW OF SYSTEMS: GENERAL: No constitutional signs or symptoms Head and neck negative Ears and nose okay Chest okay Skin okay Abdomen okay NEURO: See HPI Objective PHYSICAL EXAM: General Appearance: Normal Head and neck nontender no nuchal rigidity Ears and nose no discharge Abdomen is soft Chest is negative Skin no great rash Neurological: Mental Status: Confused quiet follows simple directions no distress Motor or sensory grossly normal Movement no tremor Cranial nerves look okay LABS/DATA: WBC Date Value 08/05/2023 7.46 k/uL 05/13/2023 6.27 k/uL 05/12/2023 4.69 k/uL 05/05/2023 6.04 k/uL 04/18/2023 5.66 k/uL 03/13/2021 5.02 k/uL 03/08/2021 6.54 k/uL 01/06/2021 6.2 K/CUMM 11/28/2020 6.7 K/CUMM 11/10/2020 7.14 k/uL RBC Date Value 08/05/2023 3.48 m/uL 05/13/2023 2.64 m/uL 05/12/2023 2.71 m/uL 05/05/2023 2.99 m/uL 04/18/2023 2.81 m/uL 03/13/2021 2.89 m/uL 03/08/2021 3.23 m/uL 01/06/2021 3.46 M/CU MM 11/28/2020 3.26 M/CU MM 11/10/2020 3.55 m/uL Platelet Count Date Value 08/05/2023 98 k/uL 05/13/2023 131 k/uL 05/12/2023 122 k/uL 05/05/2023 149 k/uL 04/18/2023 176 k/uL 03/13/2021 230 k/uL 03/08/2021 254 k/uL 01/06/2021 250 K/CU MM 11/28/2020 319 K/CU MM 11/10/2020 295 k/uL BUN Date Value 08/05/2023 44 mg/dL 05/13/2023 21 mg/dL 05/12/2023 57 mg/dL 04/18/2023 39 mg/dL 11/23/2021 38 mg/dL (more content not included)... [facility] CONSULT PROGon 08-05-2023 CONSULT PROG HNO ID: [id number] Author: FORTINO TELLES RPh Service: Pharmacy Author Type: Pharmacist Type: Consult Progress Note Filed: 08/05/2023 14:48 Note Text: PHARMACY PROGRESS NOTE Patient Name: Lavinia Durand Admission Date: 08/04/2023 Date of Consult: 08/05/2023 Time of Consult: 2:47 PM In accordance with the pharmacy dose optimization service, the following medication changes/decisions have been made: Medication Current Regimen Dosing Assessment Indication Assessment/Plan Famotidine 40mg Q24h Modify dosing to 20mg Q24h gastroesophageal reflux disease (GERD) Order has been modified to standard dosing based on the patient's estimated renal function: CrCl 8 mL/min For medications which dose is dependent on renal function, a pharmacist will monitor renal function daily and adjust doses accordingly. Any dose adjustments needed based on changes in indication should be addressed by an LIP. If you have any questions, please contact pharmacy at [phone]. CrCl cannot be calculated (Unknown ideal weight.). Serum creatinine and eGFR results 72 hours 08/05/2023 3:52 AM SCr (mg/dL) 5.01 eGFR (mL/min/1.73m2) 8 Allergies: ALLERGIES Allergen Reactions Atorvastatin Intolerance Severe fatigue Humira [Adalimumab] Rash Last 1 Encounter Wt Readings: Date: Wt: 08/04/2023 48.4 kg (106 lb 12.8 oz) Last 1 Encounter Ht Readings: Date: Ht: 08/04/2023 149.9 cm (4' 11) Fortino Telles, [facility] August 05, 2023 2:47 PM Normal [facility] HBV surface Ab Ql (S)on HBV surface Ab Qn (S) <3.10 Normal [facility] Comment on above: Order Comment: Speci men Type: BLOOD SPECIMEN Ordering Facility: [facility] Address: [address] [place] [address] Result Comment: STAT US OF IMMUNITY Protective Immunity: greater than or equal to 10 mIU/mL (Traceable to WHO International Reference Preparation) No Protective Immunity: less than 10 mIU/mL Note: The magnitude of the measured result above the cutoff is not indicative of the total amount of antibody present. Performed By: #### 2 4321-2, 88938-6, 54106-4, 6-3, 41205-3, 5-3 #### [facility] CLIA [id number] [address] [place] [address] [place] [facility] HBV surface Ab Ser Qlon HBV surface Ab Ql (S) Negative Normal [facility] Comment on above: Order Comment: Speci [facility] Type: BLOOD SPECIMEN Ordering Facility: [facility] Address: [address] [place] [address] Result Comment: No s erological evidence of immunity to Hepatitis B Virus. Performed By: #### 2 4321-2, 94012-6, 91604-9, 3016-3, 67349-8, 5195-3 #### [facility] CLIA [id number] [address] [place], [place] [address] [place] HBV surface Ag Ser Qlon HBV surface Ag Ql (S) Non-Reactive Normal Equivo antionette, Nonreactive [facility] Comment on above: Order Comment: Speci [facility] Type: BLOOD SPECIMEN Ordering Facility: [facility] Address: [address] [place], [place] [address] Result Comment: Resu lts were obtained with the [employer] IM IgM assay. Values obtained with different manufactures' assay methods may not be used interchangeably. 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 Presenting with altered mental status. Patient presented initially to [facility] with altered mental status. Per report she also had an unwitnessed fall. Answering only yes/no questions. She notably was admitted 07/20 for hypertensive urgency and had similar complaints, though symptoms improved after treatment of hypertension. When patient presented again to [facility] family was requesting neurology evaluation. Neurology not available at their facility and patient was requested to transfer here. At outside ER, UA showing 100 leukocyte Estrace, 10-25 WBC, rare bacteria. Straight cath was done due to urinary retention. Ammonia level was checked and negative. CMP was done and showing BUN 36, creatinine 4.11 consistent with ESRD. Sodium was within normal limits. Glucose 190. Potassium 4.9. WBC 6.4. Platelets 95. CT head was done with no acute process. She was given labetalol 20 mg for high blood pressure. Chest x-ray done and negative. KUB done and negative. Vitals BP 187/75, HR 97, afebrile, saturating well on room air. Upon arrival to [facility] BP 226/104, HR 96, saturating well on room air. Afebrile. She does not follow commands. She does not respond verbally to any of my questions. She looks to me and then closes her eyes. Spoke to family member Marni. Patient speaks kinyarwanda. Admitted for HTN urgency and UTI recently. Receiving treatment for bladder cancer and started to become confused after 2nd dose. Prior to that very functional. Discharged to SNF but able to converse and follow commands even while at SNF. Family is concerned about sharp decline since last admission. Had an unwitnessed fall at [facility] which brought her into the ER. FUNCTIONAL STATUS: Totally dependent PAST MEDICAL HISTORY Diagnosis Date Acute on chronic diastolic congestive heart failure (HCC) 11/23/2021 Arthritis Diabetes ([facility]) GERD (gastroesophageal reflux disease) Glaucoma Hypercholesteremia Hypertension Hypothyroidism Macular degeneration of right eye Osteoporosis Sciatica Stage 3b chronic kidney disease ([facility]) 03/08/2021 PAST SURGICAL HISTORY Procedure Laterality Date CATARACT EXTRACTION HX Bilateral PAST SURGICAL HISTORY OF 11/03/2020 right nephroureterectomy REPAIR WRIST FRACTURE Left 2019 ORIF left diatal radius SLING OPER STRES INCONTINENCE 1998 STAB PHLEBECTOMY VARICOSE VEINS >20 1974 TOTAL ABDOM HYSTERECTOMY 1977 TOTAL KNEE REPLACEMENT 2006 Left FAMILY HISTORY Problem Relation Age of Onset Anesthesia Problems No Family History Social History Tobacco Use Smoking status: Never Smokeless tobacco: Never Vaping Use Vaping Use: Never used Substance Use Topics Alcohol use: No Drug use: No trospium (SANCTURA) 20 mg tablet, Take 1 tablet by mouth once daily as needed (Bladder spasms)., Disp: 5 tablet, Rfl: 0 cephALEXin (KEFLEX) 500 mg capsule, Take 1 capsule by mouth once daily. Continue taking until the day after your barillas catheter is removed, Disp: 5 capsule, Rfl: 0 NIFEdipine ER (PROCARDIA XL) 30 mg 24 hr tablet, Take 30 mg by mouth two times a day., Disp: , Rfl: doxazosin (CARDURA) 2 mg tablet, Take 2 mg by mouth two times a day., Disp: , Rfl: iv contrast (will be provided with radiology test), CT Urogram WO/W Inject, intravenously, once for 1 dose.No IV access, insert saline lock prior to the beginning of sedation, infusion, injection of imaging exam. Discontinue saline lock post exam. If Pt. has a central line or IVAD, may access for administration according to line specific nursing protocol. Once exam is complete flush line and de-access according to line specific nursing protocol in the CT contrast administration guidelines link., Disp: 1 Each, Rfl: 0 0.9 % sodium chloride (NACL 0.9%) infusion, Administer at rate defined per CT contrast administration specifications. To be provided with radiology test., Disp: 150 mL, Rfl: 0 acetaminophen (TYLENOL EXTRA STRENGTH) 500 mg tablet, Take 2 tablets by mouth every 6 hours as needed for pain., Disp: 40 tablet, Rfl: 0 furosemide (LASIX) 20 mg tablet, Take 20 mg by mouth every other day. , Disp: , Rfl: carvedilol (COREG) 12.5 mg tablet, Take 1 tablet by mouth twice daily with meals., Disp: 180 tablet, Rfl: 3 atorvastatin (LIPITOR) 20 mg tablet, Take 1 tablet by mouth once marvin (more content not included)... Normal [facility] Hepatic function 2000 panelo n 08-05-2023 Albumin [Mass/Vol] 2.4 g/dL Low 3.2-5.0 [facility] Comment on above: Order Comment: Speci men Type: BLOOD SPECIMEN Ordering Facility: [facility] Address: [address] [place] [address] Performed By: #### 2 4321-2, 94714-9, 72054-9, 6-3, 72816-8, 5-3 #### [facility] CLIA [id number] [address] [place] [address] [place] ALP [Catalytic activity/Vol] 63 U/L Normal 45-117 [facility] Comment on above: Order Comment: Speci men Type: BLOOD SPECIMEN Ordering Facility: [facility] Address: [address] [place], [place] [id number] Performed By: #### 2 4321-2, 14587-2, 57647-3, 3016-3, 53891-6, 5-3 #### [facility] CLIA [id number] [address] [place] [address] [place] ALT [Catalytic activity/Vol] 8 U/L Low 13-61 [facility] Comment on above: Order Comment: Speci men Type: BLOOD SPECIMEN Ordering Facility: [facility] Address: [address] [place] [address] Result Comment: Resu lts may be falsely depressed after the administration of Sulfasalazine and/or Sulfapyridine. Performed By: #### 2 4321-2, 77036-7, 47286-2, 3016-3, 13984-1, 5195-3 #### [facility] CLIA [id number] [address] [place] [address] [place] AST [Catalytic activity/Vol] 16 U/L Normal 8-34 [facility] Comment on above: Order Comment: Alonzoi hilda Type: BLOOD SPECIMEN Ordering Facility: [facility] Address: [address] [place] [address] Result Comment: Resu lts may be falsely depressed after the administration of Sulfasalazine and/or Sulfapyridine. Performed By: #### 2 4321-2, 47451-9, 59404-8, 3016-3, 63762-3, 5195-3 #### [facility] CLIA [id number] [address] [place], [place] [address] [place] Bilirubin [Mass/Vol] 0.2 mg/dL Normal 0.2-1.0 [facility] Comment on above: Order Comment: Speci hilda Type: BLOOD SPECIMEN Ordering Facility: [facility] Address: [address] [place] [address] Performed By: #### 2 4321-2, 38943-8, 39092-2, 3016-3, 14274-5, 5195-3 #### [facility] CLIA [id number] [address] [place], [place] [address] [place] Bilirubin.conjugated [Mass/Vol] mg/dL Normal 0.0-0.4 [facility] Comment on above: Order Comment: Alonzoi hilda Type: BLOOD SPECIMEN Ordering Facility: [facility] Address: [address] [place] [address] Performed By: #### 2 4321-2, 43804-1, 21319-9, 3016-3, 09119-9, 5195-3 #### [facility] CLIA [id number] [address] [place], [place] [address] [place] Protein [Mass/Vol] 5.5 g/dL Low 6.0-8.5 [facility] Comment on above: Order Comment: Noelle stevens Type: BLOOD SPECIMEN Ordering Facility: [facility] Address: [address] [place] [address] Performed By: #### 2 4321-2, 97281-0, 10935-1, 3016-3, 85018-0, 5195-3 #### [facility] CLIA [id number] [address] [place], [place] [address] [place] Magnesium SerPl-mCncon 08-04 Magnesium [Mass/Vol] 1.9 mg/dL Normal 1.6-2.6 [facility] Comment on above: Order Comment: Alonzoi hilda Type: BLOOD SPECIMEN Ordering Facility: [facility] Address: [address] [place] [address] Performed By: #### 2 4321-2, 06941-6, 73102-8, 6-3, 68942-9, 5-3 #### [facility] CLIA [id number] [address] [place], [place] [address] [place] PT panel Coag (PPP)on 2023 INR Coag (PPP) [Relative time] 1.1 {INR} Normal 0.9-1.3 [facility] Comment on above: Order Comment: Noelle stevens Type: BLOOD SPECIMEN Ordering Facility: [facility] Address: [address] [place] [address] Result Comment: Mary min K Antagonist (VKA) Therapeutic Range: INR 2 to 3 (Target INR of 2.5) Note: For patients treated with VKA drugs, such as warfarin, the [place] [employer] 2012 Guideline recommends a therapeutic INR range of 2 to 3 (target INR of 2.5). This recommendation includes high-risk patients with antiphospholipid syndrome with previous arterial or venous thromboembolism, current-generation mechanical or bioprosthetic aortic heart valve replacement. Note: Patients with mechanical aortic valve replacement and additional risk factors for thromboembolic events (atrial fibrillation, previous thromboembolism, LV dysfunction, hypercoagulable conditions) or an older generation mechanical AVR (i.e., ball in-Cage) or any mechanical MVR should have a INR therapeutic range of 2.5 to 3.5 (target INR of 3). Kenn GH, et al. Chest 2012, 141:7S-47S Rosa Maria RA et al. [facility] 2017, 70: 252-289 Performed By: #### 3 4528-0 #### [facility] CLIA [id number] [address] [place] [address] OF [facility] PT Coag (PPP) [Time] 11.5 s Normal 9.7-13.0 [facility] Comment on above: Order Comment: Speci men Type: BLOOD SPECIMEN Ordering Facility: [facility] Address: [address] [place] [address] Performed By: #### 3 4528-0 #### [facility] CLIA [id number] [address] [place] [address] THERAPY NTon 08-05-2023 THERAPY NT HNO ID: [id number] Author: BLAIR NUÑEZ OTR/Cammy Service: ? Author Type: Occupational Therapist Type: Therapy (PT/OT/Speech/Resp) Filed: 08/05/2023 12:33 Note Text: Occupational Therapy Evaluation Summary SERVICE DATE: 08/05/2023 SERVICE TIME: 1015 to 1033 ROOM: EM-0A-257- OT 6 Clicks Score: 12 DISCHARGE RECOMMENDATIONS Subacute/SNF Recommended Discharge Disposition Comments: Patient would benefit from OT services to increase safety and independence with ADLs, improve activity tolerance, improve functional cognition and decrease risk for falls. Recommended Discharge Disposition Due to: Patient requires daily, facility-based rehabilitation from at least one discipline due to:, ADL impairment resulting in caregiver dependence, decline in functional status requiring daily skilled care, new / worsened cognitive deficits related to current diagnosis, ongoing intervention of multiple therapy disciplines, poor trunk control Anticipated Discharge Needs: Family Training, Physical Assist at Home, Supervision at Home Physical Assist at Home for: Transfers, Finances, Ambulation, Cleaning, Laundry, Meals, Medication Management, Stairs, Safety, Self Care, Shopping, Transportation Supervision at Home due to: Impaired cognition, Decreased safety awareness Recommended Discharge Equipment: To Be Determined ASSESSMENT Response to Therapy Interventions: Cognitive Deficits, Low Activity Tolerance, Needs Frequent Redirection or Reinstruction, Requires Additional Time to Complete Activities, Requires Encouragement to Complete Activities Patient tolerated OT session poorly. Limited by confusion, poor command following, generalized weakness and low activity tolerance. Patient would benefit from continued OT services. PRECAUTIONS Bed/Chair Alarm, Fall Risk confused CURRENT HOSPITAL COURSE Transfer from [facility] to [facility] with altered mental status and unwitnessed fall at SNF. CT head negative. Neurology consult pending. 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 She is an unreliable historian at this time due to her confusion.) Baseline Cognition: (unknown) SUBJECTIVE pt agreeable to OT eval w/ education on purpose/benefits COGNITION Communication Deficits: Receptive Deficits, Expressive Deficits, Delayed Response Orientation Deficits: Confused, Not oriented to Place, Not oriented to Time, Not oriented to Situation, Not oriented to Person, Other: See Comment (only oriented to name. not oriented to date, place, time or situation) Responsiveness: Awake, Drowsy Follows Commands: 1-step Commands, With Increased Time, With Repetition, Cueing Needed Cueing to Follow Commands: Maximum Attention Deficits: Distractible, Divided Memory Deficits: Short Term, Recall of Medical/Personal History, Recall of Precautions, Recall of Recent Events Executive Function Deficits: Safety Awareness, Motor Planning, Problem Solving, Insight to Deficits, Judgement, Sequencing, Categorization THERAPY DIAGNOSIS Decreased activities of daily living (ADL), Reduced mobility-other TREATMENT INTERVENTIONS Evaluation Skilled Treatment Time (minutes): 18 TRAINING AND EDUCATION PROVIDED Activity Adaptation/Compensatory Strategies, Assistive Device Use, Bed Mobility, Cognitive Skills, Command Following, Discharge Planning, Edema Management, Energy Conservation, Grooming Tasks, Functional Mobility Involving ADLs, Lower Extremity Bathing, Lower Extremity Dressing, Memory/Attention, Orientation, Pain Management, Positioning, Role of Occupational Therapy, Safety/Judgment, Sitting Balance to Improve Gary with ADLs/Self-Care, Standing Balance to Improve Gary with ADLs/Self-Care, Toileting , Transfer - Bed to Chair, Transfer - Sit to Stand, Transfer - Toilet/Commode, Upper Extremity Bathing, Upper Extremity Dressing THERAPEUTIC SKILLS USED Activity Dosing, Assessment of Tolerance Including Vitals Response to Activity, Cues for Sequencing/Proper Technique for Activity, Cuing Tactile, Cuing Verbal, Cuing Visual, Movement Facilitation, Mirroring, Physical Assist, Repetitive Task Learning, Task Analysis Learning FUNCTIONAL STATUS Activities of Daily Living Assist Level Additional Information Feeding Moderate Assistance Grooming Maximal Assistance Bathing Upper Body Moderate Assistance Bathing (more content not included)... [facility] THERAPY NT HNO ID: [id number] Author: KYLE LOPEZ, PT Service: Physical Therapy Author Type: Physical Therapist Type: Therapy (PT/OT/Speech/Resp) Filed: 08/05/2023 11:42 Note Text: Physical Therapy Evaluation Summary SERVICE DATE: 08/05/2023 SERVICE TIME: 917 ROOM: [id number]-317-01 PT 6 Clicks Score: 10 DISCHARGE RECOMMENDATIONS Subacute/SNF Recommended Discharge Disposition Due to: Patient requires daily, facility-based rehabilitation from at least one discipline due to:, ADL impairment resulting in caregiver dependence, decline in functional status requiring daily skilled care Recommended Discharge Equipment: To Be Determined ASSESSMENT Response to Therapy Interventions: Good Participation in Activities Patient tolerated session at fair level. Patient demonstrated impaired strength, balance, and functional mobility. She would benefit from SNF placement at this time for improving functional independence. Range of Motion: WFL Strength: Lower Extremity Comments Right Lower Extremity Strength Comments: grossly 3/5 Left Lower Extremity Strength Comments: grossly 3/5 Exercise ] PRECAUTIONS Bed/Chair Alarm, Fall Risk confused CURRENT HOSPITAL COURSE Transfer from [facility] to [facility] with altered mental status and unwitnessed fall at SNF. CT head negative. Neurology consult pending. 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 She is an unreliable historian at this time due to her confusion.) SUBJECTIVE Patient is agreeable to therapy today. THERAPY DIAGNOSIS Reduced mobility-other TREATMENT INTERVENTIONS Evaluation Skilled Treatment Time (minutes): 16 TRAINING AND EDUCATION PROVIDED Assistive Device Use, Bed Mobility, Benefits of In-Hospital Mobility, Discharge Planning, Disease Specific Education, Role of Physical Therapy, Sitting Balance, Standing Balance THERAPEUTIC SKILLS USED Cues for Sequencing/Proper Technique for Activity, Cuing Tactile, Cuing Verbal, Physical Assist FUNCTIONAL STATUS Bed Mobility Supine To Sit: Moderate Assistance (Assisted for trunk control and lower extremity assist.) Sit to Supine: Moderate Assistance Transfers Sit To Stand: Moderate Assistance (Assisted for anterior weight shift and balance. Patient with retropulsion throughout attempts.) Stand To Sit: Moderate Assistance Bed to Chair Gait Stairs GOALS Patient will demonstrate understanding of importance of mobility during hospital stay and resolve all functional needs identified. Transfer Supine to/from Sit with: Supervision Transfer Sit to/from Stand with: Supervision Ambulate with: Supervision Distance: 80ft Device: Wheeled Walker Rehab Potential: Fair PLAN PT Frequency: 3 Times Per Week Treatment Interventions: Education, Self Care / Home Management, Energy Conservation Training, Strengthening, Functional Mobility Training, Balance Training, Neuromuscular Re-education Plan for Next Visit: Bed Mobility, Chair Transfer Training, Gait Training, Sit to Stand Transfers, Sitting Balance, Standing Balance, Standing Tolerance, Walker Training SIGNATURE: Kyle Lopez PT PATIENT NAME: Lavinia Durand DATE: August 05, 2023 TIME: 11:42 AM Normal [facility] TSH SerPl-aCncon 08-05-2023 TSH Qn 2.170 m[IU]/L Normal 0.358-3.740 [facility] Comment on above: Order Comment: Speci men Type: BLOOD SPECIMEN Ordering Facility: [facility] Address: [address] [place] [address] Result Comment: 3rd generation ultra sensitive TSH. Performed By: #### 2 4321-2, 37536-5, 88370-9, 3016-3, 10792-2, 5195-3 #### [facility] CLIA [id number] [address] STATES OF [facility] Absolute lymphocyte countOrd ered By: Batool Caraballo on 08-04-2023 Lymphocytes Auto (Unsp spec) [#/Vol] 0.66 10*3/uL 0.83-4.51 [facility] Automated lymphocyte count a s percentage of total leukocytesOrdered By: Batool Caraballo on 08-04-2023 Lymphocytes/100 WBC Auto (Unsp spec) 10.4 % 19-41 [facility] Basophil percentageOrdered B y: Batool Caraballo on 08-04-2023 Basophil percentage 10-25 SEEN /hpf 0-5 [facility] Basophil percentage 3.6 mg/dL 2.5-4.9 [facility] Basophil percentage < 10.0 umol/L 11-32 [facility] Basophil percentage 10.9 g/dL 12.0-15.0 [facility] Basophil percentage 190 mg/dL 74-106 [facility] Basophil percentage 6.8 g/dL 6.4-8.2 [facility] Basophil percentage 0.30 mg/dL 0.20-1.00 [facility] Basophil percentage 132 mmol/L 136-145 [facility] Basophil percentage 4.5 mmol/L 3.5-5.1 [facility] Basophil percentage 95 mmol/L 98-107 [facility] Basophils (Bld) [#/Vol] 6.4 10*3/uL 4.4-11.0 [facility] Basophils (Bld) [#/Vol] 5.1 10*3/uL 2.0-7.7 [facility] Basophils/100 WBC (Bld) 0.6 % 0-[address] [facility] Basophils/100 WBC (Bld) 80.2 % 47-[address] [facility] Basophils/100 WBC (Bld) 5.0 % 0-10 [facility] Basophils/100 WBC (Bld) 2.4 % 0-5 [facility] Bilirubin [Mass/Vol] 0.30 mg/dL 0.20-1.00 [facility] Comment on above: For patients on eltr ombopag therapy, use of Dimension [place] TBIL is not recommended. Chloride [Moles/Vol] 95 mmol/L 98-107 [facility] Eosinophils/100 WBC (Bld) 2.4 % 0-5 [facility] Glucose [Mass/Vol] 190 mg/dL 74-106 [facility] Comment on above: Fasting Glucose resu lt greater than or equal to 126 mg/dL suggests DIABETES MELLITUS per A.D.A. criteria. Hemoglobin (Bld) [Mass/Vol] 10.9 g/dL 12.0-15.0 [facility] Monocytes/100 WBC (Bld) 5.0 % 0-10 [facility] Neutrophils (Bld) [#/Vol] 5.1 10*3/uL 2.0-7.7 [facility] Neutrophils/100 WBC (Bld) 80.2 % 47-70 [facility] Potassium [Moles/Vol] 4.5 mmol/L 3.5-5.1 [facility] Protein [Mass/Vol] 6.8 g/dL 6.4-8.2 [facility] Sodium [Moles/Vol] 132 mmol/L 136-145 [facility] WBC (Bld) [#/Vol] 6.4 10*3/uL 4.4-11.0 [facility] Basophil percentageOrdered B y: Lima Serranoemelina on 08-04-2023 Basophil percentage 9.2 g/dL 12.0-15.0 [facility] Basophil percentage 94 mg/dL 74-106 [facility] Basophil percentage 135 mmol/L 136-145 [facility] Basophil percentage 5.4 mmol/L 3.5-5.1 [facility] Basophil percentage 101 mmol/L 98-107 [facility] Basophils (Bld) [#/Vol] 6.4 10*3/uL 4.4-11.0 [facility] Chloride [Moles/Vol] 101 mmol/L 98-107 [facility] Glucose [Mass/Vol] 94 mg/dL 74-106 [facility] Hemoglobin (Bld) [Mass/Vol] 9.2 g/dL 12.0-15.0 [facility] Potassium [Moles/Vol] 5.4 mmol/L 3.5-5.1 [facility] Sodium [Moles/Vol] 135 mmol/L 136-145 [facility] WBC (Bld) [#/Vol] 6.4 10*3/uL 4.4-11.0 [facility] Bilirubin Test strip Ql (U)O rdered By: Batool Caraballo on 08-04-2023 Bilirubin Ql (U) Negative Negative [facility] Blood manual differential co mment interpretation (narrative result)Ordered By: Batool Caraballo on 08-04-2023 Manual differential comment [place] (Bld) [Interp] SCANNED [facility] Blood platelet adequacy dete ction by light microscopyOrdered By: Batool Caraballo on 08-04-2023 Platelets LM Ql (Bld) MOD DEC ADEQ [facility] Culture, urineOrdered By: Terry Caraballo on 08-04-2023 Bacteria identified Cx Nom (U) Culture exhibits no growth. [facility] Determination of erythrocyte mean corpuscular volume (MCV)Ordered By: Batool Caraballo on 08-04-2023 MCV (RBC) [Entitic vol] 88.6 fL 81-[address] [facility] Determination of erythrocyte mean corpuscular volume (MCV)Ordered By: Lima Figueredo on 08-04-2023 MCV (RBC) [Entitic vol] 90.9 fL 81-[address] [facility] Direct bilirubinOrdered By: Batool Caraballo on 08-04-2023 Bilirubin.direct [Mass/Vol] 0.07 mg/dL 0.00-0.30 [facility] Erythrocyte distribution wid th ratioOrdered By: Batool Caraballo on 08-04-2023 Erythrocyte distribution width (RBC) [Ratio] 16.5 % 11.6-14.6 [facility] Erythrocyte distribution wid th ratioOrdered By: Lima Figueredo on 08-04-2023 Erythrocyte distribution width (RBC) [Ratio] 16.7 % 11.6-14.6 [facility] Erythrocyte distribution wid th standard deviationOrdered By: Batool Caraballo on 08-04-2023 Erythrocyte distribution width (RBC) [Entitic vol] 54.3 fL 35.1-43.9 [facility] Erythrocyte distribution wid th standard deviationOrdered By: Lima Figueredo on 08-04-2023 Erythrocyte distribution width (RBC) [Entitic vol] 56.1 fL 35.1-43.9 [facility] Hematocrit Auto (Bld) [Volum e fraction]Ordered By: Batool Caraballo on 08-04-2023 Hematocrit (Bld) [Volume fraction] 33.4 % 37-47 [facility] Hematocrit Auto (Bld) [Volum e fraction]Ordered By: Lima Figueredo on 08-04-2023 Hematocrit (Bld) [Volume fraction] 28.8 % 37-47 [facility] Immature granulocytes/100 WB C Auto (Bld)Ordered By: Batool Caraballo on 08-04-2023 Immature granulocytes/100 WBC (Bld) 1.400 % 0.0-0.9 [facility] Comment on above: IG% - Immature Granu locytes (promyelocytes, myelocytes and metamyelocytes) > 1% indicates that a LEFT SHIFT is Present. Ketones Test strip Ql (U)Ord ered By: Batool Caraballo on 08-04-2023 Ketones Ql (U) Negative Negative [facility] Laboratory - Chemistry and C hemistry - challengeOrdered By: Batool Caraballo on 08-04-2023 ALP [Catalytic activity/Vol] 76 U/L 45-117 [facility] ALT [Catalytic activity/Vol] 17 U/L 13-56 [facility] CK [Catalytic activity/Vol] 33 U/L 26-192 [facility] CO2 [Moles/Vol] 27.0 mmol/L 21.0-32.0 [facility] Globulin (S) [Mass/Vol] 4.1 g/dL 2.2-4.[address] [facility] Urea nitrogen/Creatinine [Mass ratio] 8.8 mg/mg 10-20 [facility] Laboratory - Chemistry and C hemistry - challengeOrdered By: Lima Figueredo on 08-04-2023 CO2 [Moles/Vol] 21.0 mmol/L 21.0-32.0 [facility] Magnesium [Mass/Vol] 2.3 mg/dL 1.6-2.6 [facility] Urea nitrogen/Creatinine [Mass ratio] 10.5 mg/mg 10-20 [facility] Laboratory - CoagulationOrde red By: Batool Caraballo on 08-04-2023 INR Coag (Bld) [Relative time] 1.1 {INR} [facility] PT Coag (PPP) [Time] 13.7 s 11.7-14.9 [facility] Laboratory - Hematology and Cell countsOrdered By: aBtool Caraballo on 08-04-2023 MCH (RBC) [Entitic mass] 28.9 pg 27.0-32.0 [facility] MCHC (RBC) [Mass/Vol] 32.6 g/dL 32-36 [facility] Nucleated RBC/100 WBC (Bld) [Ratio] 0 % 0-5 [facility] Platelet mean volume (Bld) [Entitic vol] 10.0 fL 6.2-12.0 [facility] Platelets (Bld) [#/Vol] 95 10*3/uL 150-[address] [facility] Laboratory - Hematology and Cell countsOrdered By: Lima Figueredo on 08-04-2023 MCH (RBC) [Entitic mass] 29.0 pg 27.0-32.0 [facility] MCHC (RBC) [Mass/Vol] 31.9 g/dL 32-36 [facility] Platelet mean volume (Bld) [Entitic vol] 14.1 fL 6.2-12.0 [facility] Platelets (Bld) [#/Vol] 105 10*3/uL 150-450 [facility] Mucus LM Ql (Urine sed)Order ed By: Batool Caraballo on 08-04-2023 Mucus Ql (Urine sed) 0 SEEN /hpf [facility] Nitrite Test strip Ql (U)Ord ered By: Batool Caraballo on 08-04-2023 Nitrite Ql (U) Negative Negative [facility] No Panel InformationOrdered By: Batool Caraballo on 08-04-2023 Urine RBC 0-5 SEEN /hpf 0-5 [facility] 0-5 SEEN /hpf 0-5 [facility] Estimated Creatinine Clearance Calc 7.45 ml/min [facility] Estimated GFR (MDRD) Amer 13 mL/min >60 [facility] Comment on above: GFR Calc Estimated GFR (MDRD) Non-Af Amer 11 mL/min >60 [facility] Comment on above: Non- GFR Calc 28.9 pg 27.0-32.0 [facility] 32.6 g/dL 32-36 [facility] 95 K/mm3 150-450 [facility] 10.0 fl 6.2-12.0 [facility] 0 % 0-5 [facility] 13.7 SECONDS 11.7-14.9 [facility] 1.1 [facility] 11 mL/min >60 [facility] 13 mL/min >60 [facility] 7.45 ml/min [facility] 8.8 RATIO 10-20 [facility] 4.1 g/dL 2.2-4.2 [facility] 33 U/L 26-192 [facility] 76 U/L 45-117 [facility] 17 U/L 13-56 [facility] 27.0 mmol/L 21.0-32.0 [facility] No Panel InformationOrdered By: Lima Figueredo on 08-04-2023 Estimated GFR (MDRD) Amer 6 mL/min >60 [facility] Comment on above: GFR Calc Estimated GFR (MDRD) Non-Af Amer 5 mL/min >60 [facility] Comment on above: Non- GFR Calc 29.0 pg 27.0-32.0 [facility] 31.9 g/dL 32-36 [facility] 105 K/mm3 150-450 [facility] 14.1 fl 6.2-12.0 [facility] 5 mL/min >60 [facility] 6 mL/min >60 [facility] 10.5 RATIO 10-20 [facility] 2.3 mg/dL 1.6-2.6 [facility] 21.0 mmol/L 21.0-32.0 [facility] Protein Test strip Ql (U)Ord ered By: Batool Caraballo on 08-04-2023 Protein Ql (U) 500 mg/dl Negative [facility] RBC Auto (Bld) [#/Vol]Ordere d By: Batool Caraballo on 08-04-2023 RBC (Bld) [#/Vol] 3.77 10*6/uL 4.2-5.4 [facility] RBC Auto (Bld) [#/Vol]Ordere d By: Lima Figueredo on 08-04-2023 RBC (Bld) [#/Vol] 3.17 10*6/uL 4.2-5.4 [facility] Serum or plasma calcium sandra urement (mass/volume)Ordered By: Batool Caraballo on 08-04-2023 Calcium [Mass/Vol] 9.4 mg/dL 8.5-10.1 [facility] Serum or plasma calcium sandra urement (mass/volume)Ordered By: Lima Figueredo on 08-04-2023 Calcium [Mass/Vol] 9.4 mg/dL 8.5-10.1 [facility] Serum or plasma cardiac trop onin I panel by high sensitivity methodOrdered By: Batool Caraballo on 08-04-2023 Tropinin I.cardiac panel High sensitivity method 45 pg/mL 3.0-54.0 [facility] Comment on above: Please Note: [place] t Units and Gender Specific Reference Ranges. For more information see Policy Stat Procedure [place] High Sensitivity Troponin (TNIH) and attachments. Serum or plasma creatinine m easurement (mass/volume)Ordered By: Batool Caraballo on 08-04-2023 Creatinine [Mass/Vol] 4.11 mg/dL 0.55-1.02 [facility] Comment on above: The validity of the calculated GFR & GFRAA in patients over 70 years has not been determined. Clinical correlation is essential. Serum or plasma creatinine m easurement (mass/volume)Ordered By: Lima Figueredo on 08-04-2023 Creatinine [Mass/Vol] 7.72 mg/dL 0.55-1.02 [facility] Comment on above: The validity of the calculated GFR & GFRAA in patients over 70 years has not been determined. Clinical correlation is essential. Serum or plasma urea nitroge n measurement (mass/volume)Ordered By: Batool Caraballo on 08-04-2023 Urea nitrogen [Mass/Vol] 36 mg/dL 11-12 [facility] Serum or plasma urea nitroge n measurement (mass/volume)Ordered By: Lima Figueredo on 08-04-2023 Urea nitrogen [Mass/Vol] 81 mg/dL 11-12 [facility] Squamous epithelial cells de tection in urine sediment by light microscopyOrdered By: Batool Caraballo on 08-04-2023 Epithelial cells.squamous LM Ql (Urine sed) 0 SEEN /hpf 5-10 [facility] Thin prep Papanicolaou smear with manual screeningOrdered By: Batool Caraballo on 08-04-2023 Thin prep Papanicolaou smear with manual screening 2.7 g/dL 3.2-5.0 [facility] Thin prep Papanicolaou smear with manual screening 19 U/L 15-37 [facility] Thin prep Papanicolaou smear with manual screeningOrdered By: Lima Figueredo on 08-04-2023 Thin prep Papanicolaou smear with manual screening 13 5-15 [facility] Urine blood detectionOrdered By: Batool Caraballo on 08-04-2023 RBC Ql (U) 50 /ul Negative [facility] Urine clarityOrdered By: Bia Caraballo on 08-04-2023 Clarity (U) Sl. Cloudy Clear [facility] Urine color determinationOrd ered By: Batool Caraballo on 08-04-2023 Color (U) Yellow Yellow [facility] Urine glucose detectionOrder ed By: Batool Caraballo on 08-04-2023 Glucose Ql (U) 50 mg/dl Normal [facility] Urine leukocyte esterase det ection by dipstickOrdered By: Batool Caraballo on 08-04-2023 Leukocyte esterase Test strip Ql (U) 100 /ul Negative [facility] Urine pHOrdered By: Batool urena on 08-04-2023 pH (U) 8.0 [pH] 5.0 - 8.0 [facility] Urine sediment bacteria coun t by microscopy (number/high power field)Ordered By: Batool Caraballo on 08-04-2023 Bacteria LM.HPF (Urine sed) [#/Area] RARE /hpf None Seen [facility] Urine specific gravity measu rementOrdered By: Batool Caraballo on 08-04-2023 Specific gravity (U) [Rel density] 1.010 1.002-1.030 [facility] Urine urobilinogen measureme ntOrdered By: Batool Caraballo on 08-04-2023 Urobilinogen Ql (U) Normal mg/dl Normal [facility] Basophil percentageOrdered B y: Lima Figueredo on 07-28-2023 Basophil percentage 11.9 g/dL 12.0-15.0 [facility] Basophil percentage 183 mg/dL 74-106 [facility] Basophil percentage 131 mmol/L 136-145 [facility] Basophil percentage 4.3 mmol/L 3.5-5.1 [facility] Basophil percentage 97 mmol/L 98-107 [facility] Basophils (Bld) [#/Vol] 7.9 10*3/uL 4.4-11.0 [facility] Chloride [Moles/Vol] 97 mmol/L 98-107 [facility] Glucose [Mass/Vol] 183 mg/dL 74-106 [facility] Comment on above: Fasting Glucose resu lt greater than or equal to 126 mg/dL suggests DIABETES MELLITUS per A.D.A. criteria. Hemoglobin (Bld) [Mass/Vol] 11.9 g/dL 12.0-15.0 [facility] Potassium [Moles/Vol] 4.3 mmol/L 3.5-5.1 [facility] Sodium [Moles/Vol] 131 mmol/L 136-145 [facility] WBC (Bld) [#/Vol] 7.9 10*3/uL 4.4-11.0 [facility] Determination of erythrocyte mean corpuscular volume (MCV)Ordered By: Lima Figueredo on 07-28-2023 MCV (RBC) [Entitic vol] 91.5 fL 81-[address] [facility] Erythrocyte distribution wid th ratioOrdered By: Lima Figueredo on 07-28-2023 Erythrocyte distribution width (RBC) [Ratio] 16.3 % 11.6-14.6 [facility] Erythrocyte distribution wid th standard deviationOrdered By: Lima Figueredo on 07-28-2023 Erythrocyte distribution width (RBC) [Entitic vol] 55.0 fL 35.1-43.9 [facility] Hematocrit Auto (Bld) [Volum e fraction]Ordered By: Lima Figueredo on 07-28-2023 Hematocrit (Bld) [Volume fraction] 36.8 % 37-47 [facility] Laboratory - Chemistry and C hemistry - challengeOrdered By: Lima Figueredo on 07-28-2023 CO2 [Moles/Vol] 25.0 mmol/L 21.0-32.0 [facility] Magnesium [Mass/Vol] 2.3 mg/dL 1.6-2.6 [facility] Urea nitrogen/Creatinine [Mass ratio] 8.1 mg/mg 10- [facility] Laboratory - Hematology and Cell countsOrdered By: Lima Figueredo on 07-28-2023 MCH (RBC) [Entitic mass] 29.6 pg 27.0-32.0 [facility] MCHC (RBC) [Mass/Vol] 32.3 g/dL 32-36 [facility] Platelet mean volume (Bld) [Entitic vol] 11.6 fL 6.2-12.0 [facility] Platelets (Bld) [#/Vol] 260 10*3/uL 150-450 [facility] No Panel InformationOrdered By: Lima Figueredo on 07-28-2023 Estimated GFR (MDRD) Amer 8 mL/min >60 [facility] Comment on above: GFR Calc Estimated GFR (MDRD) Non-Af Amer 6 mL/min >60 [facility] Comment on above: Non- GFR Calc 29.6 pg 27.0-32.0 [facility] 32.3 g/dL 32-36 [facility] 260 K/mm3 150-450 [facility] 11.6 fl 6.2-12.0 [facility] 6 mL/min >60 [facility] 8 mL/min >60 [facility] 8.1 RATIO 02-14 [facility] 2.3 mg/dL 1.6-2.6 [facility] 25.0 mmol/L 21.0-32.0 [facility] RBC Auto (Bld) [#/Vol]Ordere d By: Lima Figueredo on 07-28-2023 RBC (Bld) [#/Vol] 4.02 10*6/uL 4.2-5.4 [facility] Serum or plasma calcium sandra urement (mass/volume)Ordered By: Lima Figueredo on 07-28-2023 Calcium [Mass/Vol] 10.0 mg/dL 8.5-10.1 [facility] Serum or plasma creatinine m easurement (mass/volume)Ordered By: Lima Figueredo on 07-28-2023 Creatinine [Mass/Vol] 6.64 mg/dL 0.55-1.02 [facility] Comment on above: The validity of the calculated GFR & GFRAA in patients over 70 years has not been determined. Clinical correlation is essential. Serum or plasma urea nitroge n measurement (mass/volume)Ordered By: Lima Figueredo on 07-28-2023 Urea nitrogen [Mass/Vol] 54 mg/dL 7-18 [facility] Thin prep Papanicolaou smear with manual screeningOrdered By: Lima Figueredo on 07-28-2023 Thin prep Papanicolaou smear with manual screening 9 5-15 [facility] Absolute lymphocyte countOrd ered By: Shu Ballesteros on 07-25-2023 Lymphocytes Auto (Unsp spec) [#/Vol] 1.28 10*3/uL 0.83-4.51 [facility] Automated lymphocyte count a s percentage of total leukocytesOrdered By: Shu Ballesteros on 07-25-2023 Lymphocytes/100 WBC Auto (Unsp spec) 19.2 % 19-41 [facility] Basophil percentageOrdered B y: Shu Ballesteros on 07-25-2023 Basophil percentage 11.4 g/dL 12.0-15.0 [facility] Basophil percentage 90 mg/dL 74-106 [facility] Basophil percentage 6.0 g/dL 6.4-8.2 [facility] Basophil percentage 0.30 mg/dL 0.20-1.00 [facility] Basophil percentage 132 mmol/L 136-145 [facility] Basophil percentage 4.2 mmol/L 3.5-5.1 [facility] Basophil percentage 98 mmol/L 98-107 [facility] Basophils (Bld) [#/Vol] 6.7 10*3/uL 4.4-11.0 [facility] Basophils (Bld) [#/Vol] 4.7 10*3/uL 2.0-7.7 [facility] Basophils/100 WBC (Bld) 0.6 % 0-[address] [facility] Basophils/100 WBC (Bld) 69.9 % 47-[address] [facility] Basophils/100 WBC (Bld) 8.4 % 0-[address] [facility] Basophils/100 WBC (Bld) 1.2 % 0-[address] [facility] Bilirubin [Mass/Vol] 0.30 mg/dL 0.20-1.00 [facility] Comment on above: For patients on eltr ombopag therapy, use of Dimension [place] TBIL is not recommended. Chloride [Moles/Vol] 98 mmol/L 98-107 [facility] Eosinophils/100 WBC (Bld) 1.2 % 0-5 [facility] Glucose [Mass/Vol] 90 mg/dL 74-106 [facility] Hemoglobin (Bld) [Mass/Vol] 11.4 g/dL 12.0-15.0 [facility] Monocytes/100 WBC (Bld) 8.4 % 0-[address] [facility] Neutrophils (Bld) [#/Vol] 4.7 10*3/uL 2.0-7.7 [facility] Neutrophils/100 WBC (Bld) 69.9 % 47-70 [facility] Potassium [Moles/Vol] 4.2 mmol/L 3.5-5.1 [facility] Protein [Mass/Vol] 6.0 g/dL 6.4-8.2 [facility] Sodium [Moles/Vol] 132 mmol/L 136-145 [facility] WBC (Bld) [#/Vol] 6.7 10*3/uL 4.4-11.0 [facility] Determination of erythrocyte mean corpuscular volume (MCV)Ordered By: Shu Ballesteros on 07-25-2023 MCV (RBC) [Entitic vol] 89.9 fL 81-[address] [facility] Erythrocyte distribution wid th ratioOrdered By: Shu Ballestreos on 07-25-2023 Erythrocyte distribution width (RBC) [Ratio] 16.3 % 11.6-14.6 [facility] Erythrocyte distribution wid th standard deviationOrdered By: Shu Ballesteros on 07-25-2023 Erythrocyte distribution width (RBC) [Entitic vol] 54.2 fL 35.1-43.9 [facility] Hematocrit Auto (Bld) [Volum e fraction]Ordered By: Shu Ballesteros on 07-25-2023 Hematocrit (Bld) [Volume fraction] 35.7 % 37-47 [facility] Immature granulocytes/100 WB C Auto (Bld)Ordered By: Shu Ballesteros on 07-25-2023 Immature granulocytes/100 WBC (Bld) 0.700 % 0.0-0.9 [facility] Comment on above: IG% - Immature Granu locytes (promyelocytes, myelocytes and metamyelocytes) > 1% indicates that a LEFT SHIFT is Present. Laboratory - Chemistry and C hemistry - challengeOrdered By: Shu Ballesteros on 07-25-2023 Albumin/Globulin [Mass ratio] 0.7 {ratio} 0.9-2.4 [facility] ALP [Catalytic activity/Vol] 67 U/L 45-117 [facility] ALT [Catalytic activity/Vol] 10 U/L 13-56 [facility] CO2 [Moles/Vol] 25.0 mmol/L 21.0-32.0 [facility] Globulin (S) [Mass/Vol] 3.6 g/dL 2.2-4.2 [facility] Urea nitrogen/Creatinine [Mass ratio] 6.0 mg/mg 10-20 [facility] Laboratory - Hematology and Cell countsOrdered By: Shu Ballesteros on 07-25-2023 MCH (RBC) [Entitic mass] 28.7 pg 27.0-32.0 [facility] MCHC (RBC) [Mass/Vol] 31.9 g/dL 32-36 [facility] Nucleated RBC/100 WBC (Bld) [Ratio] 0 % 0-5 [facility] Platelet mean volume (Bld) [Entitic vol] 11.9 fL 6.2-12.0 [facility] Platelets (Bld) [#/Vol] 235 10*3/uL 150-450 [facility] No Panel InformationOrdered By: Shu Ballesteros on 07-25-2023 Estimated GFR (MDRD) Amer 9 mL/min >60 [facility] Comment on above: GFR Calc Estimated GFR (MDRD) Non-Af Amer 7 mL/min >60 [facility] Comment on above: Non- GFR Calc 28.7 pg 27.0-32.0 [facility] 31.9 g/dL 32-36 [facility] 235 K/mm3 150-450 [facility] 11.9 fl 6.2-12.0 [facility] 0 % 0-5 [facility] 7 mL/min >60 [facility] 9 mL/min >60 [facility] 6.0 RATIO 10-20 [facility] 3.6 g/dL 2.2-4.2 [facility] 0.7 RATIO 0.9-2.4 [facility] 67 U/L 45-117 [facility] 10 U/L 13-56 [facility] 25.0 mmol/L 21.0-32.0 [facility] RBC Auto (Bld) [#/Vol]Ordere d By: Shu Ballesteros on 07-25-2023 RBC (Bld) [#/Vol] 3.97 10*6/uL 4.2-5.4 [facility] Serum or plasma calcium sandra urement (mass/volume)Ordered By: Shu Ballesteros on 07-25-2023 Calcium [Mass/Vol] 9.9 mg/dL 8.5-10.1 [facility] Serum or plasma creatinine m easurement (mass/volume)Ordered By: Shu Ballesteros on 07-25-2023 Creatinine [Mass/Vol] 6.05 mg/dL 0.55-1.02 [facility] Comment on above: The validity of the calculated GFR & GFRAA in patients over 70 years has not been determined. Clinical correlation is essential. Serum or plasma urea nitroge n measurement (mass/volume)Ordered By: Shu Ballesteros on 07-25-2023 Urea nitrogen [Mass/Vol] 36 mg/dL 7-18 [facility] Thin prep Papanicolaou smear with manual screeningOrdered By: Shu Ballesteros on 07-25-2023 Thin prep Papanicolaou smear with manual screening 2.4 g/dL 3.2-5.0 [facility] Thin prep Papanicolaou smear with manual screening 15 U/L 15-37 [facility] Thin prep Papanicolaou smear with manual screening 9 5-15 [facility] Absolute lymphocyte countOrd ered By: Lima Figueredo on 07-24-2023 Lymphocytes Auto (Unsp spec) [#/Vol] 1.61 10*3/uL 0.83-4.51 [facility] Automated lymphocyte count a s percentage of total leukocytesOrdered By: Lima Figueredo on 07-24-2023 Lymphocytes/100 WBC Auto (Unsp spec) 24.0 % 19-41 [facility] Basophil percentageOrdered B y: Lima Figueredo on 07-24-2023 Basophil percentage 12.2 g/dL 12.0-15.0 [facility] Basophil percentage 103 mg/dL 74-106 [facility] Basophil percentage 217 mg/dL <200 [facility] Basophil percentage 318 mg/dL <199 [facility] Basophil percentage 132 mmol/L 136-145 [facility] Basophil percentage 4.9 mmol/L 3.5-5.1 [facility] Basophil percentage 101 mmol/L 98-107 [facility] Basophils (Bld) [#/Vol] 6.7 10*3/uL 4.4-11.0 [facility] Basophils (Bld) [#/Vol] 4.3 10*3/uL 2.0-7.7 [facility] Basophils/100 WBC (Bld) 0.6 % 0-[address] [facility] Basophils/100 WBC (Bld) 63.3 % 47-[address] [facility] Basophils/100 WBC (Bld) 8.2 % 0-[address] [facility] Basophils/100 WBC (Bld) 2.4 % 0-5 [facility] Chloride [Moles/Vol] 101 mmol/L 98-107 [facility] Cholesterol [Mass/Vol] 217 mg/dL <200 [facility] Comment on above: <200 mg/dL Desirable 200-240 mg/dL Borderline >240 mg/dL High Risk Eosinophils/100 WBC (Bld) 2.4 % 0-5 [facility] Glucose [Mass/Vol] 103 mg/dL 74-106 [facility] Comment on above: Fasting Glucose resu lt from 100 to 125 mg/dL suggests IMPAIRED HOMEOSTASIS per A.D.A. criteria. Hemoglobin (Bld) [Mass/Vol] 12.2 g/dL 12.0-15.0 [facility] Monocytes/100 WBC (Bld) 8.2 % 0-10 [facility] Neutrophils (Bld) [#/Vol] 4.3 10*3/uL 2.0-7.7 [facility] Neutrophils/100 WBC (Bld) 63.3 % 47-70 [facility] Potassium [Moles/Vol] 4.9 mmol/L 3.5-5.1 [facility] Sodium [Moles/Vol] 132 mmol/L 136-145 [facility] Triglyceride [Mass/Vol] 318 mg/dL <199 [facility] Comment on above: The drugs N-Acetylcy steine and Metamizole may falsely depress this assay.Serum Triglycerides Reference Interval Normal <150 mg/dL Borderline high 150 - 199 mg/dL High 200 - 499 mg/dL Very High > or = 500 mg/dL WBC (Bld) [#/Vol] 6.7 10*3/uL 4.4-11.0 [facility] Determination of erythrocyte mean corpuscular volume (MCV)Ordered By: Lima Figueredo on 07-24-2023 MCV (RBC) [Entitic vol] 91.0 fL 81-99 [facility] Erythrocyte distribution wid th ratioOrdered By: Lima Figueredo on 07-24-2023 Erythrocyte distribution width (RBC) [Ratio] 16.4 % 11.6-14.6 [facility] Erythrocyte distribution wid th standard deviationOrdered By: Lima Figueredo on 07-24-2023 Erythrocyte distribution width (RBC) [Entitic vol] 55.5 fL 35.1-43.9 [facility] Hematocrit Auto (Bld) [Volum e fraction]Ordered By: Lima Figueredo on 07-24-2023 Hematocrit (Bld) [Volume fraction] 39.4 % 37-47 [facility] Immature granulocytes/100 WB C Auto (Bld)Ordered By: Lima Figueredo on 07-24-2023 Immature granulocytes/100 WBC (Bld) 1.500 % 0.0-0.9 [facility] Comment on above: IG% - Immature Granu locytes (promyelocytes, myelocytes and metamyelocytes) > 1% indicates that a LEFT SHIFT is Present. Laboratory - Chemistry and C hemistry - challengeOrdered By: Lima Figueredo on 07-24-2023 Cholesterol in HDL [Mass/Vol] 53 mg/dL >40 [facility] Comment on above: The drugs N-Acetylcy steine and Metamizole may falsely depress this assay. Reference Range HDL <40 mg/dL Low HDL Cholesterol HDL >or= 60 mg/dL High HDL Cholesterol Cholesterol in LDL [Mass/Vol] 100 mg/dL 0-130 [facility] CO2 [Moles/Vol] 20.0 mmol/L 21.0-32.0 [facility] Magnesium [Mass/Vol] 2.8 mg/dL 1.6-2.6 [facility] Urea nitrogen/Creatinine [Mass ratio] 7.0 mg/mg 10-20 [facility] Laboratory - Hematology and Cell countsOrdered By: Lima Figueredo on 07-24-2023 MCH (RBC) [Entitic mass] 28.2 pg 27.0-32.0 [facility] MCHC (RBC) [Mass/Vol] 31.0 g/dL 32-36 [facility] Nucleated RBC/100 WBC (Bld) [Ratio] 0 % 0-5 [facility] Platelet mean volume (Bld) [Entitic vol] 12.4 fL 6.2-12.0 [facility] Platelets (Bld) [#/Vol] 233 10*3/uL 150-450 [facility] No Panel InformationOrdered By: Lima Figueredo on 07-24-2023 Estimated GFR (MDRD) Amer 6 mL/min >60 [facility] Comment on above: GFR Calc Estimated GFR (MDRD) Non-Af Amer 5 mL/min >60 [facility] Comment on above: Non- GFR Calc Vitamin B12 Level > 2000 pg/mL 211-911 [facility] Vitamin D 25-Hydroxy 24.8 ng/mL [facility] Comment on above: Vitamin D 25(OH) Sta tus Range Deficiency <20 ng/mL (50nmol/L) Insufficiency 20 - 30 ng/mL (50 - 75 nmol/L) Sufficiency 30 - 100 ng/mL (75 - 250 nmol/L) Toxicity >100 ng/mL (>250 nmol/L) VLDL Cholesterol 64 mg/dL 5-40 [facility] 28.2 pg 27.0-32.0 [facility] 31.0 g/dL 32-36 [facility] 233 K/mm3 150-450 [facility] 12.4 fl 6.2-12.0 [facility] 0 % 0-5 [facility] 5 mL/min >60 [facility] 6 mL/min >60 [facility] 7.0 RATIO 10-20 [facility] 2.8 mg/dL 1.6-2.6 [facility] 20.0 mmol/L 21.0-32.0 [facility] 53 mg/dL >40 [facility] 100 mg/dL 0-130 [facility] 64 mg/dL 5-40 [facility] > 2000 pg/mL 211-911 [facility] 24.8 ng/mL [facility] RBC Auto (Bld) [#/Vol]Ordere d By: Lima Figueredo on 07-24-2023 RBC (Bld) [#/Vol] 4.33 10*6/uL 4.2-5.4 [facility] Serum or plasma calcium sandra urement (mass/volume)Ordered By: Lima Figueredo on 07-24-2023 Calcium [Mass/Vol] 10.0 mg/dL 8.5-10.1 [facility] Serum or plasma creatinine m easurement (mass/volume)Ordered By: Lima Figueredo on 07-24-2023 Creatinine [Mass/Vol] 7.88 mg/dL 0.55-1.02 [facility] Comment on above: The validity of the calculated GFR & GFRAA in patients over 70 years has not been determined. Clinical correlation is essential. Serum or plasma thyroid stim ulating hormone (TSH) measurement (units/volume)Ordered By: Lima Figueredo on 07-24-2023 TSH Qn 3.88 uIU/mL 0.358-3.74 [facility] Serum or plasma urea nitroge n measurement (mass/volume)Ordered By: Lima Figueredo on 07-24-2023 Urea nitrogen [Mass/Vol] 55 mg/dL 7-18 [facility] Thin prep Papanicolaou smear with manual screeningOrdered By: Limaelvin Figueredo on 07-24-2023 Thin prep Papanicolaou smear with manual screening 11 5-15 [facility] Absolute lymphocyte countOrd ered By: Maria Del Rosario Cooper on 07-22-2023 Lymphocytes Auto (Unsp spec) [#/Vol] 1.09 10*3/uL 0.83-4.51 [facility] Automated lymphocyte count a s percentage of total leukocytesOrdered By: Maria Del Rosario Cooper on 07-22-2023 Lymphocytes/100 WBC Auto (Unsp spec) 16.6 % 19-41 [facility] Basophil percentageOrdered B y: Maria Del Rosario Cooper on 07-22-2023 Basophil percentage 10.9 g/dL 12.0-15.0 [facility] Basophil percentage 99 mg/dL 74-106 [facility] Basophil percentage 133 mmol/L 136-145 [facility] Basophil percentage 4.4 mmol/L 3.5-5.1 [facility] Basophil percentage 100 mmol/L 98-107 [facility] Basophils (Bld) [#/Vol] 6.6 10*3/uL 4.4-11.0 [facility] Basophils (Bld) [#/Vol] 4.6 10*3/uL 2.0-7.7 [facility] Basophils/100 WBC (Bld) 0.8 % 0-[address] [facility] Basophils/100 WBC (Bld) 70.5 % 47-[address] [facility] Basophils/100 WBC (Bld) 8.7 % 0-[address] [facility] Basophils/100 WBC (Bld) 2.3 % 0-[address] [facility] Chloride [Moles/Vol] 100 mmol/L 98-107 [facility] Eosinophils/100 WBC (Bld) 2.3 % 0-5 [facility] Glucose [Mass/Vol] 99 mg/dL 74-106 [facility] Hemoglobin (Bld) [Mass/Vol] 10.9 g/dL 12.0-15.0 [facility] Monocytes/100 WBC (Bld) 8.7 % 0-[address] [facility] Neutrophils (Bld) [#/Vol] 4.6 10*3/uL 2.0-7.7 [facility] Neutrophils/100 WBC (Bld) 70.5 % 47-70 [facility] Potassium [Moles/Vol] 4.4 mmol/L 3.5-5.1 [facility] Sodium [Moles/Vol] 133 mmol/L 136-145 [facility] WBC (Bld) [#/Vol] 6.6 10*3/uL 4.4-11.0 [facility] Basophil percentageOrdered B y: León Ye on 07-22-2023 Basophil percentage 198 mg/dL <200 [facility] Basophil percentage 209 mg/dL <199 [facility] Cholesterol [Mass/Vol] 198 mg/dL <200 [facility] Comment on above: <200 mg/dL Desirable 200-240 mg/dL Borderline >240 mg/dL High Risk Triglyceride [Mass/Vol] 209 mg/dL <199 [facility] Comment on above: The drugs N-Acetylcy steine and Metamizole may falsely depress this assay.Serum Triglycerides Reference Interval Normal <150 mg/dL Borderline high 150 - 199 mg/dL High 200 - 499 mg/dL Very High > or = 500 mg/dL Determination of erythrocyte mean corpuscular volume (MCV)Ordered By: Maria Del Rosario Cooper on 07-22-2023 MCV (RBC) [Entitic vol] 90.9 fL 81-[address] [facility] Erythrocyte distribution wid th ratioOrdered By: Maria Del Rosario Cooper on 07-22-2023 Erythrocyte distribution width (RBC) [Ratio] 17.0 % 11.6-14.6 [facility] Erythrocyte distribution wid th standard deviationOrdered By: Maria Del Rosario Cooper on 07-22-2023 Erythrocyte distribution width (RBC) [Entitic vol] 56.7 fL 35.1-43.9 [facility] Hematocrit Auto (Bld) [Volum e fraction]Ordered By: Maria Del Rosario Cooper on 07-22-2023 Hematocrit (Bld) [Volume fraction] 34.8 % 37-47 [facility] Immature granulocytes/100 WB C Auto (Bld)Ordered By: Maria Del Rosario Cooper on 07-22-2023 Immature granulocytes/100 WBC (Bld) 1.100 % 0.0-0.9 [facility] Comment on above: IG% - Immature Granu locytes (promyelocytes, myelocytes and metamyelocytes) > 1% indicates that a LEFT SHIFT is Present. Laboratory - Chemistry and C hemistry - challengeOrdered By: León Ye on 07-22-2023 Cholesterol in HDL [Mass/Vol] 49 mg/dL >40 [facility] Comment on above: The drugs N-Acetylcy steine and Metamizole may falsely depress this assay. Reference Range HDL <40 mg/dL Low HDL Cholesterol HDL >or= 60 mg/dL High HDL Cholesterol Cholesterol in LDL [Mass/Vol] 107 mg/dL 0-130 [facility] Laboratory - Chemistry and C hemistry - challengeOrdered By: Maria Del Rosario Cooper on 07-22-2023 CO2 [Moles/Vol] 22.0 mmol/L 21.0-32.0 [facility] Urea nitrogen/Creatinine [Mass ratio] 6.4 mg/mg 10-20 [facility] Laboratory - Hematology and Cell countsOrdered By: Maria Del Rosario Cooper on 07-22-2023 MCH (RBC) [Entitic mass] 28.5 pg 27.0-32.0 [facility] MCHC (RBC) [Mass/Vol] 31.3 g/dL 32-36 [facility] Nucleated RBC/100 WBC (Bld) [Ratio] 0 % 0-5 [facility] Platelet mean volume (Bld) [Entitic vol] 10.8 fL 6.2-12.0 [facility] Platelets (Bld) [#/Vol] 179 10*3/uL 150-450 [facility] No Panel InformationOrdered By: Maria Del Rosario Cooper on 07-22-2023 Estimated Creatinine Clearance Calc 5.44 ml/min [facility] Estimated GFR (MDRD) Amer 10 mL/min >60 [facility] Comment on above: GFR Calc Estimated GFR (MDRD) Non-Af Amer 8 mL/min >60 [facility] Comment on above: Non- GFR Calc 28.5 pg 27.0-32.0 [facility] 31.3 g/dL 32-36 [facility] 179 K/mm3 150-450 [facility] 10.8 fl 6.2-12.0 [facility] 0 % 0-5 [facility] 8 mL/min >60 [facility] 10 mL/min >60 [facility] 5.44 ml/min [facility] 6.4 RATIO 10-20 [facility] 22.0 mmol/L 21.0-32.0 [facility] No Panel InformationOrdered By: León Ye on 07-22-2023 VLDL Cholesterol 42 mg/dL 5-40 [facility] 49 mg/dL >40 [facility] 107 mg/dL 0-130 [facility] 42 mg/dL 5-40 [facility] RBC Auto (Bld) [#/Vol]Ordere d By: Maria Del Rosario Cooper on 07-22-2023 RBC (Bld) [#/Vol] 3.83 10*6/uL 4.2-5.4 [facility] Serum or plasma calcium sandra urement (mass/volume)Ordered By: Maria Del Rosario Cooper on 07-22-2023 Calcium [Mass/Vol] 9.3 mg/dL 8.5-10.1 [facility] Serum or plasma creatinine m easurement (mass/volume)Ordered By: Maria Del Rosario Cooper on 07-22-2023 Creatinine [Mass/Vol] 5.47 mg/dL 0.55-1.02 [facility] Comment on above: The validity of the calculated GFR & GFRAA in patients over 70 years has not been determined. Clinical correlation is essential. Serum or plasma urea nitroge n measurement (mass/volume)Ordered By: Maria Del Rosario Cooper on 07-22-2023 Urea nitrogen [Mass/Vol] 35 mg/dL 7-18 [facility] Thin prep Papanicolaou smear with manual screeningOrdered By: León Ye on 07-22-2023 Thin prep Papanicolaou smear with manual screening 254 mg/dL 74-106 [facility] Comment on above: MANAGEMENT OF PATIEN T CARE PER NURSING PROTOCOL Thin prep Papanicolaou smear with manual screeningOrdered By: Maria Del Rosario Cooper on 07-22-2023 Thin prep Papanicolaou smear with manual screening 11 5-15 [facility] Blood platelet adequacy dete ction by light microscopyOrdered By: Maria Del Rosario Cooper on 07-17-2023 Platelets LM Ql (Bld) SLT DEC ADEQ [facility] Base excessOrdered By: Maria Del Rosario Cooper on 07-16-2023 Base excess Calc (BldV) [Moles/Vol] 1 mmol/L -2-2 [facility] Basophil percentageOrdered B y: Anthony Bowers on 07-16-2023 Basophil percentage < 10.0 umol/L 11-32 [facility] Basophil percentageOrdered B y: Maria Del Rosario Cooper on 07-16-2023 Basophil percentage 27 mmol/L [facility] Basophils/100 WBC (Bld) 94 % 95-99 [facility] Basophil percentageOrdered B y: Anastacia Selby on 07-16-2023 Basophil percentage 5.5 g/dL 6.4-8.2 [facility] Basophil percentage 0.30 mg/dL 0.20-1.00 [facility] Bilirubin [Mass/Vol] 0.30 mg/dL 0.20-1.00 [facility] Comment on above: For patients on eltr ombopag therapy, use of Dimension [place] TBIL is not recommended. Protein [Mass/Vol] 5.5 g/dL 6.4-8.2 [facility] Basophil percentageOrdered B y: Holland Flores on 07-16-2023 Basophil percentage 0.6 mmol/L 0.4-2.0 [facility] Lactate [Moles/Vol] 0.6 mmol/L 0.4-2.0 [facility] Basophil percentage 5-10 SEEN /hpf 0-[address] [facility] Bilirubin Test strip Ql (U)O rdered By: Holland Flores on 07-16-2023 Bilirubin Ql (U) Negative Negative [facility] Culture, urineOrdered By: Guru Flores on 07-16-2023 Bacteria identified Cx Nom (U) Culture exhibits no growth. [facility] Ketones Test strip Ql (U)Ord ered By: Holland Flores on 07-16-2023 Ketones Ql (U) 15 mg/dl Negative [facility] Laboratory - Chemistry and C hemistry - challengeOrdered By: Anastacia White on 07-16-2023 Albumin/Globulin [Mass ratio] 0.8 {ratio} 0.9-2.4 [facility] ALP [Catalytic activity/Vol] 67 U/L 45-117 [facility] ALT [Catalytic activity/Vol] 11 U/L 13-56 [facility] Globulin (S) [Mass/Vol] 3.1 g/dL 2.2-4.2 [facility] Magnesium [Mass/Vol] 2.3 mg/dL 1.6-2.6 [facility] Laboratory - Microbiology an d Antimicrobial susceptibilityOrdered By: Holland Flores on 07-16-2023 SARS-CoV-2 (COVID-19) RNA ALBIN+probe Ql (Unsp spec) [facility] Measurement, pHOrdered By: Yves Cooper on 07-16-2023 pH (Unsp spec) 7.44 [pH] 7.35-7.45 [facility] Mucus LM Ql (Urine sed)Order ed By: Holland Flores on 07-16-2023 Mucus Ql (Urine sed) 0 SEEN /hpf [facility] Nitrite Test strip Ql (U)Ord ered By: Holland Flores on 07-16-2023 Nitrite Ql (U) Negative Negative [facility] No Panel InformationOrdered By: Maria Del Rosario Cooper on 07-16-2023 Arterial Blood Partial Pressure CO2 38.1 mmHg 35-45 [facility] Arterial Blood Partial Pressure O2 68 mmHG 75-100 [facility] Blood Gas Bicarbonate Actual 25.6 mmol/L 22-26 [facility] Blood Gas Sample Site Not entered [facility] Blood Gas Specimen Type ART [facility] Blood Gas Vent Mode Not entered [facility] Oxygen Delivery Device Room Air [facility] ART [facility] Not entered [facility] Room Air [facility] 38.1 mmHg 35-45 [facility] 68 mmHG 75-100 [facility] 25.6 mmol/L 22-26 [facility] No Panel InformationOrdered By: Anastacia Selby on 07-16-2023 Troponin I High Sensitivity 78 pg/mL 3.0-54.0 [facility] Comment on above: Please Note: [place] t Units and Gender Specific Reference Ranges. For more information see Policy Stat Procedure [place] High Sensitivity Troponin (TNIH) and attachments. 3.1 g/dL 2.2-4.2 [facility] 0.8 RATIO 0.9-2.4 [facility] 78 pg/mL 3.0-54.0 [facility] 67 U/L 45-117 [facility] 11 U/L 13-56 [facility] 2.3 mg/dL 1.6-2.6 [facility] No Panel InformationOrdered By: Holland Flores on 07-16-2023 Urine RBC 25-50 SEEN /hpf 0-5 [facility] 25-50 SEEN /hpf 0-5 [facility] Protein Test strip Ql (U)Ord ered By: Holland Flores on 07-16-2023 Protein Ql (U) 100 mg/dl Negative [facility] Serum or plasma thyroid stim ulating hormone (TSH) measurement (units/volume)Ordered By: Anthony Bowers on 07-16-2023 TSH Qn 0.90 uIU/mL 0.358-3.74 [facility] Squamous epithelial cells de tection in urine sediment by light microscopyOrdered By: Holland Flores on 07-16-2023 Epithelial cells.squamous LM Ql (Urine sed) 5-10 SEEN /hpf 5-10 [facility] Thin prep Papanicolaou smear with manual screeningOrdered By: Anastacia Selby on 07-16-2023 Thin prep Papanicolaou smear with manual screening 2.4 g/dL 3.2-5.0 [facility] Thin prep Papanicolaou smear with manual screening 18 U/L 15-37 [facility] Urine blood detectionOrdered By: Holland Flores on 07-16-2023 RBC Ql (U) 250 /ul Negative [facility] Urine clarityOrdered By: Shamika Flores on 07-16-2023 Clarity (U) Cloudy Clear [facility] Urine color determinationOrd ered By: Holland Flores on 07-16-2023 Color (U) Yellow Yellow [facility] Urine glucose detectionOrder ed By: Holland Flores on 07-16-2023 Glucose Ql (U) 100 mg/dl Normal [facility] Urine leukocyte esterase det ection by dipstickOrdered By: Holland Flores on 07-16-2023 Leukocyte esterase Test strip Ql (U) 500 /ul Negative [facility] Urine pHOrdered By: Holland Flores on 07-16-2023 pH (U) 9.0 [pH] 5.0 - 8.0 [facility] Urine sediment bacteria coun t by microscopy (number/high power field)Ordered By: Holland Flores on 07-16-2023 Bacteria LM.HPF (Urine sed) [#/Area] 1 /[HPF] None Seen [facility] Urine specific gravity measu rementOrdered By: Holland Flores on 07-16-2023 Specific gravity (U) [Rel density] 1.015 1.002-1.030 [facility] Urine urobilinogen measureme ntOrdered By: Holland Flores on 07-16-2023 Urobilinogen Ql (U) Normal mg/dl Normal [facility] Absolute lymphocyte countOrd ered By: Holland Flores on 07-15-2023 Lymphocytes Auto (Unsp spec) [#/Vol] 0.79 10*3/uL 0.83-4.51 [facility] Automated lymphocyte count a s percentage of total leukocytesOrdered By: Holland Flores on 07-15-2023 Lymphocytes/100 WBC Auto (Unsp spec) 5.3 % 19-41 [facility] Basophil percentageOrdered B y: Holland Flores on 07-15-2023 Basophils/100 WBC (Bld) 0.2 % 0-[address] [facility] Bilirubin [Mass/Vol] 0.30 mg/dL 0.20-1.00 [facility] Comment on above: For patients on eltr ombopag therapy, use of Dimension [place] TBIL is not recommended. Chloride [Moles/Vol] 102 mmol/L 98-107 [facility] Eosinophils/100 WBC (Bld) 0.1 % 0-5 [facility] Glucose [Mass/Vol] 186 mg/dL 74-106 [facility] Comment on above: Fasting Glucose resu lt greater than or equal to 126 mg/dL suggests DIABETES MELLITUS per A.D.A. criteria. Hemoglobin (Bld) [Mass/Vol] 12.2 g/dL 12.0-15.0 [facility] Monocytes/100 WBC (Bld) 3.1 % 0-[address] [facility] Neutrophils (Bld) [#/Vol] 13.6 10*3/uL 2.0-7.7 [facility] Neutrophils/100 WBC (Bld) 90.4 % 47-70 [facility] Potassium [Moles/Vol] 4.9 mmol/L 3.5-5.1 [facility] Protein [Mass/Vol] 6.3 g/dL 6.4-8.2 [facility] Sodium [Moles/Vol] 137 mmol/L 136-145 [facility] WBC (Bld) [#/Vol] 15.0 10*3/uL 4.4-11.0 [facility] Determination of erythrocyte mean corpuscular volume (MCV)Ordered By: Holland Flores on 07-15-2023 MCV (RBC) [Entitic vol] 92.8 fL 81-[address] [facility] Erythrocyte distribution wid th ratioOrdered By: Holland Flores on 07-15-2023 Erythrocyte distribution width (RBC) [Ratio] 18.0 % 11.6-14.6 [facility] Erythrocyte distribution wid th standard deviationOrdered By: Holland Sandra on 07-15-2023 Erythrocyte distribution width (RBC) [Entitic vol] 60.3 fL 35.1-43.9 [facility] Hematocrit Auto (Bld) [Volum e fraction]Ordered By: Holland Flores on 07-15-2023 Hematocrit (Bld) [Volume fraction] 39.7 % 37-47 [facility] Immature granulocytes/100 WB C Auto (Bld)Ordered By: Holland Flores on 07-15-2023 Immature granulocytes/100 WBC (Bld) 0.900 % 0.0-0.9 [facility] Comment on above: IG% - Immature Granu locytes (promyelocytes, myelocytes and metamyelocytes) > 1% indicates that a LEFT SHIFT is Present. Laboratory - Chemistry and C hemistry - challengeOrdered By: Holland Flores on 07-15-2023 Albumin/Globulin [Mass ratio] 0.8 {ratio} 0.9-2.4 [facility] ALP [Catalytic activity/Vol] 84 U/L 45-117 [facility] ALT [Catalytic activity/Vol] 13 U/L 13-56 [facility] CO2 [Moles/Vol] 28.0 mmol/L 21.0-32.0 [facility] Globulin (S) [Mass/Vol] 3.5 g/dL 2.2-4.[address] [facility] Urea nitrogen/Creatinine [Mass ratio] 6.3 mg/mg 10-20 [facility] Laboratory - Hematology and Cell countsOrdered By: Holland Flores on 07-15-2023 MCH (RBC) [Entitic mass] 28.5 pg 27.0-32.0 [facility] MCHC (RBC) [Mass/Vol] 30.7 g/dL 32-36 [facility] Nucleated RBC/100 WBC (Bld) [Ratio] 0 % 0-5 [facility] Platelet mean volume (Bld) [Entitic vol] 10.8 fL 6.2-12.0 [facility] Platelets (Bld) [#/Vol] 175 10*3/uL 150-450 [facility] Laboratory - Microbiology an d Antimicrobial susceptibilityOrdered By: Holland Flores on 07-15-2023 Bacteria identified Cx Nom (Bld) No growth in 5 days. [facility] No Panel InformationOrdered By: Holland Flores on 07-15-2023 No growth in 5 days. [facility] Estimated Creatinine Clearance Calc 6.22 ml/min [facility] Estimated GFR (MDRD) Amer 11 mL/min >60 [facility] Comment on above: GFR Calc Estimated GFR (MDRD) Non-Af Amer 9 mL/min >60 [facility] Comment on above: Non- GFR Calc Ethyl Alcohol Level < 3.0 mg/dL [facility] Comment on above: The serum:whole bloo d ethanol ratio is approximately 1.14and varies slightly with hematocrit. Medical Alcohol reference interval and critical value innon-tolerant individuals; 50 - 100 Impairment 100 Intoxication 100 - 250 Severe Poisoning 250 - 400 Deep/possible fatal coma Troponin I High Sensitivity 59 pg/mL 3.0-54.0 [facility] Comment on above: Please Note: [place] t Units and Gender Specific Reference Ranges. For more information see Policy Stat Procedure [place] High Sensitivity Troponin (TNIH) and attachments. < 3.0 mg/dL [facility] RBC Auto (Bld) [#/Vol]Ordere d By: Holland Flores on 07-15-2023 RBC (Bld) [#/Vol] 4.28 10*6/uL 4.2-5.4 [facility] Serum or plasma calcium sandra urement (mass/volume)Ordered By: Holland Flores on 07-15-2023 Calcium [Mass/Vol] 9.6 mg/dL 8.5-10.1 [facility] Serum or plasma creatinine m easurement (mass/volume)Ordered By: Holland Flores on 07-15-2023 Creatinine [Mass/Vol] 4.92 mg/dL 0.55-1.02 [facility] Comment on above: The validity of the calculated GFR & GFRAA in patients over 70 years has not been determined. Clinical correlation is essential. Serum or plasma urea nitroge n measurement (mass/volume)Ordered By: Holland Flores on 07-15-2023 Urea nitrogen [Mass/Vol] 31 mg/dL 7-18 [facility] Thin prep Papanicolaou smear with manual screeningOrdered By: Holland Flores on 07-15-2023 Thin prep Papanicolaou smear with manual screening 2.8 g/dL 3.2-5.0 [facility] Thin prep Papanicolaou smear with manual screening 22 U/L 15-37 [facility] Thin prep Papanicolaou smear with manual screening 7 5-15 [facility] Thin prep Papanicolaou smear with manual screening 196 mg/dL 74-106 [facility] Comment on above: MANAGEMENT OF PATIEN T CARE PER NURSING PROTOCOL Basophil percentageOrdered B y: Osmani Morgan on 06-05-2023 Basophil percentage 185 mg/dL <200 [facility] Basophil percentage 182 mg/dL <199 [facility] Cholesterol [Mass/Vol] 185 mg/dL <200 [facility] Comment on above: <200 mg/dL Desirable 200-240 mg/dL Borderline >240 mg/dL High Risk Triglyceride [Mass/Vol] 182 mg/dL <[address] [facility] Comment on above: The drugs N-Acetylcy steine and Metamizole may falsely depress this assay.Serum Triglycerides Reference Interval Normal <150 mg/dL Borderline high 150 - 199 mg/dL High 200 - 499 mg/dL Very High > or = 500 mg/dL Laboratory - Chemistry and C hemistry - challengeOrdered By: Osmani Morgan on 06-05-2023 Cholesterol in HDL [Mass/Vol] 57 mg/dL >40 [facility] Comment on above: The drugs N-Acetylcy steine and Metamizole may falsely depress this assay. Reference Range HDL <40 mg/dL Low HDL Cholesterol HDL >or= 60 mg/dL High HDL Cholesterol Cholesterol in LDL [Mass/Vol] 92 mg/dL 0-130 [facility] No Panel InformationOrdered By: Osmani Morgan on 06-05-2023 VLDL Cholesterol 36 mg/dL 5-40 [facility] 57 mg/dL >40 [facility] 92 mg/dL 0-130 [facility] 36 mg/dL 5-40 [facility] Miscellaneous Test See comment [facility] Comment on above: TEST RESULTS LIMITSH emoglobin A1C 4.4 Low % 4.8 - 5.6Please Note: Prediabetes: 5.7 - 6.4 Diabetes: >6.4 Glycemic control for adults with diabetes: <7.0 TESTING PERFORMED AT [facility]. ORIGINAL REPORT ON FILE IN LAB CONTAINS ADDITIONAL TEST SITE INFORMATION. See comment [facility] Serum or plasma thyroid stim ulating hormone (TSH) measurement (units/volume)Ordered By: Osmani Morgan on 06-05-2023 TSH Qn 2.88 uIU/mL 0.358-3.74 [facility] CNNURSEon 05-16-2023 CNNURSE Nurse Visit (UROLMN) -------- LAVINIA DURAND ([id number]) 1940 F Date Time Provider Department 05/16/23 10:30 AM ELE BONILLA During your visit today, we recorded the following information about you: Ele Bonilla MD 05/16/2023 11:03 AM Signed CC: post-op HPI: 82 year old female s/p Cystoscopy and Transurethral Resection of Bladder Tumor, by Dr. Peoples, on 05/12/2023. Summary: 10/2020: Right Nephroureterectomy pTaR0 LG 02/2021: TURBT pT1 HG (BCG induction, no maintenance due to shortage) 11/2021: TURBT medical services assistant HG 04/2023 TURBT pT1 HG The patient experienced no post-operative issues, with pain showing improvement. Normal bowel movements. No issues with the barillas catheter Pathology 05/12/2023: FINAL DIAGNOSIS A. Urinary bladder, tumor 1, transurethral resection: - Urothelial carcinoma, papillary and invasive, high-grade. - Lamina propria invasion is present (at least pT1). - No definite muscularis propria is present for evaluation. B. Urinary bladder, tumor 2, transurethral resection: - Urothelial carcinoma, papillary and invasive, high-grade. - Lamina propria invasion is present (at least pT1). - Muscularis propria is present for evaluation and negative for neoplasm. C. Urinary bladder, deep tumor base, transurethral resection: - Urothelial carcinoma, papillary noninvasive, high-grade. - No invasion identified (at least medical services assistant). - Muscularis propria is present for evaluation and negative for neoplasm. PEx: There were no vitals taken for this visit. Abdomen: Soft, non tender, non distended Barillas catheter draining clear urine. Labs: Creatinine Date Value Ref Range Status 05/13/2023 3.08 (H) 0.58 - 0.96 mg/dL Final 05/12/2023 5.51 (H) 0.58 - 0.96 mg/dL Final 04/18/2023 4.91 (H) 0.58 - 0.96 mg/dL Final 04/11/2023 2.35 (H) 0.58 - 0.96 mg/dL Final Hemoglobin (g/dL) Date Value 05/13/2023 8.2 03/13/2021 8.0 Hematocrit (%) Date Value 05/13/2023 25.0 03/13/2021 25.3 WBC (k/uL) Date Value 05/13/2023 6.27 03/13/2021 5.02 IMPRESSION Patient with urothelial carcinoma pT1 HG. S/p transurethral Resection of Bladder Tumor, by Dr. Peoples, on 05/12/2023. Barillas catheter was removed without issues. Surgical pathology results were discussed in depth, as well as the plan to proceed with BCG. PLAN The case was discussed and reviewed with Dr. Yovani Peoples. His recommendation is to proceed with BCG (induction) and reevaluation with cystoscopy afterward. Patient understands and agrees with the plan. Referring Provider: YOVANI PEOPLES [[id number]] Allergies As of Date: 05/16/2023 Noted Allergy Reaction ATORVASTATIN 11/23/2021 5 - Intolerance Comments: Severe fatigue HUMIRA (ADALIMUMAB) 02/28/2020 2 - Rash Date Reviewed: 05/12/2023 Reviewed by: Dwain Holt, LIZETTE - Fully Assessed Primary Visit Diagnosis:Neoplasm of bladder [D49.4] Prescriptions as of 05/16/2023 - docusate sodium (COLACE) 100 mg capsule Take 1 capsule by mouth two times a day. - trospium (SANCTURA) 20 mg tablet Take 1 tablet by mouth once daily as needed (Bladder spasms). - cephALEXin (KEFLEX) 500 mg capsule Take 1 capsule by mouth once daily. Continue taking until the day after your barillas catheter is removed - NIFEdipine ER (PROCARDIA XL) 30 mg 24 hr tablet Take 30 mg by mouth two times a day. - doxazosin (CARDURA) 2 mg tablet Take 2 mg by mouth two times a day. - iv contrast (will be provided with radiology test) CT Urogram WO/W Inject, intravenously, once for 1 dose.No IV access, insert saline lock prior to the beginning of sedation, infusion, injection of imaging exam. Discontinue saline lock post exam. If Pt. has a central line or IVAD, may access for administration according to line specific nursing protocol. Once exam is complete flush line and de-access according to line specific nursing protocol in the CT contrast administration guidelines link. - 0.9 % sodium chloride (NACL 0.9%) infusion Administer at rate defined per CT contrast administration specifications. To be provided with radiology test. - acetaminophen (TYLENOL EXTRA STRENGTH) 500 mg tablet Take 2 tablets by mouth every 6 hours as needed for pain. - furosemide (LASIX) 20 mg tablet Take 20 mg by mouth every other day. - carvedilol (COREG) 12.5 mg tablet Take 1 tablet by mouth twice daily with meals. - atorvastatin (LIPITOR) 20 mg tablet Take 1 tablet by mouth once daily. - indapamide (LOZOL) 1.25 mg tablet Take 1 tablet by mouth once daily. - acetaminophen (TYLENOL) 500 mg tablet Take 500 mg by mouth every 6 hours as needed for pain. - bisacodyl (DULCOLAX) 10 mg supp 1 Suppository by RECTAL route once daily as needed for constipation. - hydrALAZINE (APRESOLINE) 25 mg tablet Take 25 mg by mouth four times daily. - amLODIPine (NORVASC) 10 mg tablet Take 10 mg by mouth once daily. - pantoprazo (more content not included)... Normal [facility] Basic metabolic 2000 panelon 05-13-2023 Anion gap [Moles/Vol] 12 mmol/L Normal 9-18 [facility] Comment on above: Order Comment: Speci men Type: BLOOD SPECIMENOrdering Facility: [facility] Address: [address] [place] [address] Performed By: #### 2 4321-2 ####[facility] [id number] [facility] [place] [address] [place] Calcium [Mass/Vol] 9.0 mg/dL Normal 8.5-10.2 [facility] Comment on above: Order Comment: Speci men Type: BLOOD SPECIMENOrdering Facility: [facility] Address: [address] [place] [address] Performed By: #### 2 4321-2 ####[facility] [id number] [place] [address] [place] Chloride [Moles/Vol] 95 mmol/L Low 97-105 [facility] Comment on above: Order Comment: Speci men Type: BLOOD SPECIMENOrdering Facility: [facility] Address: [address] [place] [address] Performed By: #### 2 4321-2 ####[facility] [id number] [place] [address] [place] CO2 [Moles/Vol] 28 mmol/L Normal 22-30 [facility] Comment on above: Order Comment: Speci men Type: BLOOD SPECIMENOrdering Facility: [facility] Address: [address] [place] [address] Performed By: #### 2 4321-2 ####[facility] [id number] [place] [address] [place] Creatinine [Mass/Vol] 3.08 mg/dL High 0.58-0.96 [facility] Comment on above: Order Comment: Speci men Type: BLOOD SPECIMENOrdering Facility: [facility] Address: [address] [place] [address] Performed By: #### 2 4321-2 ####[facility] [id number] [place] [address] [place] Creatinine and Glomerular filtration rate.predicted panel (S/P/Bld) 15 mL/min/1.73m??? Low >=60 [facility] Comment on above: Order Comment: Speci men Type: BLOOD SPECIMENOrdering Facility: [facility] Address: [address] [place] [address] Result Comment: Isabelle mated Glomerular Filtration Rate (eGFR) is calculated using the 2020 CKD-EPI creatinine equation. This equation utilizes serum creatinine, sex, and age as parameters. The creatinine assay has traceable calibration to isotope dilution-mass spectrometry. Refer to KDIGO guidelines for clinical interpretation. In patients with unstable renal function, e.g. those with acute kidney injury, the eGFR may not accurately reflect actual GFR. Performed By: #### 2 4321-2 ####[facility] [id number] [place] [address] [place] Glucose [Mass/Vol] 174 mg/dL High 74-99 [facility] Comment on above: Order Comment: Speci men Type: BLOOD SPECIMENOrdering Facility: [facility] Address: [address] [place] [address] Result Comment: The [place] Diabetes Association (ADA) provides guidance for cutoff values for fasting glucose and random glucose. The ADA defines fasting as no caloric intake for at least 8 hours. Fasting plasma glucose results between 100 to 125 mg/dL indicate increased risk for diabetes (prediabetes). Fasting plasma glucose results greater than or equal to 126 mg/dL meet the criteria for diagnosis of diabetes. In the absence of unequivocal hyperglycemia, results should be confirmed by repeat testing. In a patient with classic symptoms of hyperglycemia or hyperglycemic crisis, random plasma glucose results greater than or equal to 200 mg/dL meet the criteria for diagnosis of diabetes. Reference: Standards of Medical Care in Diabetes 2016, [place] [employer]. Diabetes Care. 2016.39(Suppl 1). Performed By: #### 2 4321-2 ####[facility] [id number] [place] [address] [place] Potassium [Moles/Vol] 4.1 mmol/L Normal 3.7-5.1 [facility] Comment on above: Order Comment: Noelle stevens Type: BLOOD SPECIMENOrdering Facility: [facility] Address: [address] [place] [address] Performed By: #### 2 4321-2 ####[facility] [id number] [place] [address] [place] Sodium [Moles/Vol] 135 mmol/L Low 136-144 [facility] Comment on above: Order Comment: Speci men Type: BLOOD SPECIMENOrdering Facility: [facility] Address: [address] [place] [address] Performed By: #### 2 4321-2 ####[facility] [id number] [place] [address] [place] Urea nitrogen [Mass/Vol] 21 mg/dL Normal 7-21 [facility] Comment on above: Order Comment: Speci men Type: BLOOD SPECIMENOrdering Facility: [facility] Address: [address] [place] [address] Performed By: #### 2 4321-2 ####[facility] [id number] [place] [address] [place] CBC W Auto Differential pane l (Bld)on 05-13-2023 Basophils (Bld) [#/Vol] 10*3/uL Normal <0.11 C [facility] Comment on above: Order Comment: Speci men Type: BLOOD SPECIMEN [facility] Address: [address] [place] [address] Performed By: #### 5 7021-8 #### [facility] CLIA [id number] [address] [place] [address] [place] Basophils/100 WBC (Bld) 0.3 % Normal [facility] Comment on above: Order Comment: Speci men Type: BLOOD SPECIMEN [facility] Address: [address] [place] [address] Performed By: #### 5 7021-8 #### [facility] CLIA [id number] [address] [place] [address] [place] Differential cell count method Nom (Bld) Auto Normal [facility] Comment on above: Order Comment: Speci men Type: BLOOD SPECIMEN [facility] Address: [address] [place] [address] Performed By: #### 5 7021-8 #### [facility] CLIA [id number] [address] [place] [address] [place] Eosinophils (Bld) [#/Vol] 10*3/uL Normal <0.46 [facility] Comment on above: Order Comment: Speci men Type: BLOOD SPECIMEN [facility] Address: [address] [place] [address] Performed By: #### 5 7021-8 #### [facility] CLIA [id number] [address] [place] [address] [place] Eosinophils/100 WBC (Bld) 0.3 % Normal [facility] Comment on above: Order Comment: Speci men Type: BLOOD SPECIMEN [facility] Address: [address] [place] [address] Performed By: #### 5 7021-8 #### [facility] CLIA [id number] [address] [place] [address] [place] Erythrocyte distribution width (RBC) [Ratio] 14.4 % Normal 11.5-15.0 [facility] Comment on above: Order Comment: Speci men Type: BLOOD SPECIMEN [facility] Address: [address] [place] [address] Performed By: #### 5 7021-8 #### [facility] CLIA [id number] [address] [place] [address] [place] Hematocrit (Bld) [Volume fraction] 25.0 % Low 36.0-46.0 [facility] Comment on above: Order Comment: Speci men Type: BLOOD SPECIMEN [facility] Address: [address] [place] [address] Performed By: #### 5 7021-8 #### [facility] CLIA [id number] [address] [place] [address] [place] Hemoglobin (Bld) [Mass/Vol] 8.2 g/dL Low 11.5-15.5 [facility] Comment on above: Order Comment: Speci men Type: BLOOD SPECIMEN [facility] Address: [address] [place] [address] Performed By: #### 5 7021-8 #### [facility] CLIA [id number] [address] [place] [address] [place] Immature granulocytes (Bld) [#/Vol] 0.05 10*3/uL Normal <0.10 [facility] Comment on above: Order Comment: Speci men Type: BLOOD SPECIMEN [facility] Address: [address] [place] [address] Performed By: #### 5 7021-8 #### [facility] CLIA [id number] [address] [place] [address] [place] Immature granulocytes/100 WBC (Bld) 0.8 % Normal [facility] Comment on above: Order Comment: Speci men Type: BLOOD SPECIMEN [facility] Address: [address] [place] [address] Performed By: #### 5 7021-8 #### [facility] CLIA [id number] [address] [place] [address] [place] Lymphocytes (Bld) [#/Vol] 1.22 10*3/uL Normal 1.00-4.00 [facility] Comment on above: Order Comment: Speci men Type: BLOOD SPECIMEN [facility] Address: [address] [place] [address] Performed By: #### 5 7021-8 #### [facility] CLIA [id number] [address] [place] [address] [place] Lymphocytes/100 WBC (Bld) 19.5 % Normal [facility] Comment on above: Order Comment: Speci men Type: BLOOD SPECIMEN [facility] Address: [address] [place] [address] Performed By: #### 5 7021-8 #### [facility] CLIA [id number] [address] [place] [address] [place] MCH (RBC) [Entitic mass] 31.1 pg Normal 26.0-34.0 [facility] Comment on above: Order Comment: Speci men Type: BLOOD SPECIMEN [facility] Address: [address] [place] [address] Performed By: #### 5 7021-8 #### [facility] CLIA [id number] [address] [place] [address] [place] MCHC (RBC) [Mass/Vol] 32.8 g/dL Normal 30.5-36.0 [facility] Comment on above: Order Comment: Speci men Type: BLOOD SPECIMEN [facility] Address: [address] [place] [address] Performed By: #### 5 7021-8 #### [facility] CLIA [id number] [address] [place] [address] [place] MCV (RBC) [Entitic vol] 94.7 fL Normal 80.0-100.0 C [facility] Comment on above: Order Comment: Speci men Type: BLOOD SPECIMEN [facility] Address: [address] [place] [address] Performed By: #### 5 7021-8 #### [facility] CLIA [id number] [address] [place] [address] [place] Monocytes (Bld) [#/Vol] 0.48 10*3/uL Normal <0.87 [facility] Comment on above: Order Comment: Speci men Type: BLOOD SPECIMEN [facility] Address: [address] [place] [address] Performed By: #### 5 7021-8 #### [facility] CLIA [id number] [address] [place] [address] [place] Monocytes/100 WBC (Bld) 7.7 % Normal C [facility] Comment on above: Order Comment: Speci men Type: BLOOD SPECIMEN [facility] Address: [address] [place] [address] Performed By: #### 5 7021-8 #### [facility] CLIA [id number] [address] [place] [address] [place] Neutrophils (Bld) [#/Vol] 4.48 10*3/uL Normal 1.45-7.50 [facility] Comment on above: Order Comment: Speci men Type: BLOOD SPECIMEN [facility] Address: [address] [place] [address] Performed By: #### 5 7021-8 #### [facility] CLIA [id number] [address] [place] [address] [place] Neutrophils/100 WBC (Bld) 71.4 % Normal [facility] Comment on above: Order Comment: Speci men Type: BLOOD SPECIMEN [facility] Address: [address] [place] [address] Performed By: #### 5 7021-8 #### [facility] CLIA [id number] [address] [place] [address] [place] Nucleated RBC (Bld) [#/Vol] 10*3/uL Normal <0.01 [facility] Comment on above: Order Comment: Speci men Type: BLOOD SPECIMEN [facility] Address: [address] [place] [address] Performed By: #### 5 7021-8 #### [facility] CLIA [id number] [address] [place] [address] [place] Nucleated RBC/100 WBC (Bld) [Ratio] 0.0 /100 WBC Normal [facility] Comment on above: Order Comment: Speci men Type: BLOOD SPECIMEN [facility] Address: [address] [place] [address] Performed By: #### 5 7021-8 #### [facility] CLIA [id number] [address] [place] [address] [place] Platelet mean volume (Bld) [Entitic vol] 11.0 fL Normal 9.0-12.7 [facility] Comment on above: Order Comment: Speci men Type: BLOOD SPECIMEN [facility] Address: [address] [place] [address] Performed By: #### 5 7021-8 #### [facility] CLIA [id number] [address] [place] [address] [place] Platelets (Bld) [#/Vol] 131 10*3/uL Low 150-400 [facility] Comment on above: Order Comment: Speci men Type: BLOOD SPECIMEN [facility] Address: [address] [place] [address] Performed By: #### 5 7021-8 #### [facility] CLIA [id number] [address] [place] [address] [place] RBC (Bld) [#/Vol] 2.64 10*6/uL Low 3.90-5.20 [facility] Comment on above: Order Comment: Speci men Type: BLOOD SPECIMEN [facility] Address: [address] [place] [address] Performed By: #### 5 7021-8 #### [facility] CLIA [id number] [address] [place] [address] [place] WBC (Bld) [#/Vol] 6.27 10*3/uL Normal 3.70-11.00 [facility] Comment on above: Order Comment: Speci men Type: BLOOD SPECIMEN [facility] Address: [address] [place] [address] Performed By: #### 5 7021-8 #### [facility] CLIA [id number] [address] [place] [address] [id number] [id number] [facility] CNDSon 05-13-2023 CNDS HNO ID: [id number] Author: YOVANI PEOPLES MD Service: Urology Author Type: Physician Type: Discharge Summary Filed: 05/20/2023 13:20 Note Text: [facility] [place] [phone] or [phone] [facility] I D E N T I A L I N F O R M A T I O N -------- STANDARD [facility] DOCUMENT DISCHARGE SUMMARY Patient Name: Lavinia Durand Patient Admission Date: 05/12/2023 Discharge Date: 05/13/2023 Attending Physician: Yovani Peoples MD Principal Diagnosis: Bladder Mass Operations During Hospitalization: RESECTION BLADDER TUMOR TRANSURETHRAL: 52489 (CPT?) Procedures Performed While Hospitalized: Intubation Pathology: Bladder Mass, pathology pending, malignancy suspected Reason for Hospitalization: 82 year old female with history of UTUC s/p right nephroureterectomy 10/2020 and T1HG Bladder Recurrence 03/12/2021 s/p induction BCG, TaHG Bladder Recurrence 11/26/2021, and ESRD on HD who presented for operative management. Hospital Course: The patient underwent the above procedure(s) (please see separately dictated operative report for full details of the procedure). Patient tolerated the procedure well and post-operatively was transferred to PACU and ultimately to a regular nursing unit. The patient has history of ESRD and receives hemodialysis at home on MWF schedule normally. She underwent hemodialysis session while inpatient on POD0 with 1.3L taken off, without issue. Patient was managed with oral pain medication as well as restarted on prior to admission medications, and diet was advanced as tolerated. Activity level was gradually increased. Barillas catheter was continued on POD1 with plan for removal later in the week. On POD1, the patient was tolerating a diet, ambulating, and had good pain control. The patient was discharged in stable condition to home with instructions to follow up as scheduled. Patient Condition at Discharge: Stable Discharge Disposition: Home Information Provided to the Patient: Patient was given a copy of Discharge Instructions Discharge Medications: Medication List START taking these medications cephALEXin 500 mg capsule Commonly known as: KEFLEX Take 1 capsule by mouth once daily. Continue taking until the day after your barillas catheter is removed docusate sodium 100 mg capsule Commonly known as: COLACE Take 1 capsule by mouth two times a day. trospium 20 mg tablet Commonly known as: SANCTURA Take 1 tablet by mouth once daily as needed (Bladder spasms). CONTINUE taking these medications * acetaminophen 500 mg tablet Commonly known as: TYLENOL * acetaminophen 500 mg tablet Commonly known as: TYLENOL EXTRA STRENGTH Take 2 tablets by mouth every 6 hours as needed for pain. amLODIPine 10 mg tablet Commonly known as: NORVASC carvedilol 12.5 mg tablet Commonly known as: COREG Take 1 tablet by mouth twice daily with meals. doxazosin 2 mg tablet Commonly known as: CARDURA gabapentin 300 mg capsule Commonly known as: NEURONTIN Take 1 capsule by mouth three times daily. / Actual start date 02/12/15 HUMALOG KWIKPEN INSULIN SUBCUTANEOUS hydrALAZINE 25 mg tablet Commonly known as: APRESOLINE iv contrast (will be provided with radiology test) CT Urogram WO/W Inject, intravenously, once for 1 dose.No IV access, insert saline lock prior to the beginning of sedation, infusion, injection of imaging exam. Discontinue saline lock post exam. If Pt. has a central line or IVAD, may access for administration according to line specific nursing protocol. Once exam is complete flush line and de-access according to line specific nursing protocol in the CT contrast administration guidelines link. LANTUS SOLOSTAR U-100 INSULIN 100 unit/mL (3 mL) Generic drug: insulin glargine LASIX 20 mg tablet Generic drug: furosemide LUMIGAN 0.01 % Drop ophthalmic drops Generic drug: bimatoprost NaCl 0.9% infusion Administer at rate defined per CT contrast administration specifications. To be provided with radiology test. NIFEdipine ER 30 mg 24 hr tablet Commonly known as: PROCARDIA XL pantoprazole DR 40 mg tablet Commonly known as: PROTONIX PEPCID 40 mg tablet Generic drug: famotidine SYNTHROID 25 mcg tablet Generic drug: levothyroxine ZYRTEC ORAL * This list has 2 medication(s) that are the same as other medications prescribed for you. Read the directions carefully, and ask your doctor or other care provider to review them with you. ASK your doctor about these medications atorvastatin 20 mg tablet Commonly known as: LIPITOR Take 1 tablet by mouth once daily. benazepril 20 mg tablet Commonly known as: LOTENSIN bisacodyl 10 mg Supp Commonly known as: DULCOLAX 1 Suppository by RECTAL route once daily a (more content not included)... Normal [facility] ANES POSTPROC EVALon 024 ANES POSTPROC EVAL HNO ID: [id number] Author: DWAIN JONES MD Service: ? Author Type: Physician Type: Anesthesia Postprocedure Evaluation Filed: 05/12/2023 10:47 Note Text: POST ANESTHESIA EVALUATION NOTE : 1940 Procedure Summary Date: 05/12/23 Room / Location: [address] [facility] Anesthesia Start: 732 Anesthesia Stop: 946 Procedure: RESECTION BLADDER TUMOR TRANSURETHRAL (Bladder) Diagnosis: Malignant neoplasm of urinary bladder, unspecified site (HCC) Gross hematuria (Malignant neoplasm of urinary bladder, unspecified site (HCC) [C67.9]) (Gross hematuria [R31.0]) Surgeons: Yovani Peoples MD Responsible Provider: Dwain Jones MD Anesthesia Type: general ASA Status: 4 Anesthesia Type: general Airway Type: ETT Last Vitals Vitals Value Taken Time BP 132/63 05/12/23 1030 Temp 36.1 ?C (97 ?F) 05/12/23 0947 Pulse 55 05/12/23 1045 Resp 16 05/12/23 1045 SpO2 97 % 05/12/23 1045 Vitals shown include unfiled device data. Post Anesthesia Patient Status Patient Evaluation: PACU. PACU/ICU Patient Condition: stable. Anticipated Disposition: inpatient floor planned admission. Neurological Status: sleepy but arousable. Pulmonary Status: breathing comfortably on supplemental oxygen Airway Control: returned to baseline unsupported. Cardiovascular Status: stable. Pain Management: clinically adequate Postoperative Hydration: acceptable. Intraoperative Events: no significant anesthesia events Post Operative Nausea/Vomiting Status: no significant post operative nausea or vomiting Recommendation: further care per PACU/ICU/floor team. Anesthesia Observations No Documentation SIGNATURE: Dwain Jones MD PATIENT NAME: Lavinia Durand DATE: May 12, 2023 TIME: 10:46 AM CSN: [id number] Normal [facility] ANES PRE-OPon 05-12-2023 ANES PRE-OP HNO ID: [id number] Author: DWAIN JONES MD Service: ? Author Type: Physician Type: Anesthesia Preprocedure Evaluation Filed: 05/12/2023 07:19 Note Text: ANESTHESIOLOGY DAY OF SURGERY NOTE : 1940 Procedure Information Date/Time: 05/12/23729 Procedure: RESECTION BLADDER TUMOR TRANSURETHRAL (Bladder) Location: MAIN [facility] Surgeons: Yovani Peoples MD Estimated body mass index is 22.52 kg/m? as calculated from the following: Height as of 05/05/23: 152.4 cm (5'). Weight as of 05/05/23: 52.3 kg (115 lb 4.8 oz). 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 Methemoglobin (Bld) [Mass fraction] 1.5 % Normal 0.0-1.5 [facility] Comment on above: Order Comment: Speci men Type: VENOUS BLOOD SPECIMENOrdering Facility: [facility] Address: [address] [place] [address] Performed By: #### 2 4344-4 ####[facility] [id number] [place] [address] [place] O2 THERAPY RA=Room Air Normal [facility] Comment on above: Order Comment: Speci men Type: VENOUS BLOOD SPECIMENOrdering Facility: [facility] Address: [address] [place] [address] Performed By: #### 2 4344-4 ####[facility] [id number] [address] [address] [place] Oxygen (BldV) [Partial pressure] 47 mm[Hg] High 35-45 [facility] Comment on above: Order Comment: Speci men Type: VENOUS BLOOD SPECIMENOrdering Facility: [facility] Address: [address] [place] [address] Performed By: #### 2 4344-4 ####[facility] [id number] [address] [address] [place] Oxygen adjusted to patient's actual temperature (BldV) [Partial pressure] 48 mmHg High 35-45 [facility] Comment on above: Order Comment: Speci men Type: VENOUS BLOOD SPECIMENOrdering Facility: [facility] Address: [address] [place] [address] Performed By: #### 2 4344-4 ####[facility] [id number] [place] [address] [place] Oxygen saturation in Venous blood 77 % Normal 60-85 [facility] Comment on above: Order Comment: Speci men Type: VENOUS BLOOD SPECIMENOrdering Facility: [facility] Address: [address] [place], [place] [address] Performed By: #### 2 4344-4 ####[facility] [id number] [address] [address] [place] Oxyhemoglobin (BldV) [Mass fraction] 75 % Normal 60-85 [facility] Comment on above: Order Comment: Speci men Type: VENOUS BLOOD SPECIMENOrdering Facility: [facility] Address: [address] [place], [place] [address] Performed By: #### 2 4344-4 ####[facility] [id number] [address] [address] [place] pH (BldV) 7.33 [pH] Normal 7.32-7.42 [facility] Comment on above: Order Comment: Speci men Type: VENOUS BLOOD SPECIMENOrdering Facility: [facility] Address: [address] [place] [address] Performed By: #### 2 4344-4 ####[facility] [id number] [place] [address] [place] pH adjusted to patient's actual temperature (BldV) 7.33 Normal 7.32-7.42 [facility] Comment on above: Order Comment: Speci men Type: VENOUS BLOOD SPECIMENOrdering Facility: [facility] Address: [address] [place] [address] Performed By: #### 2 4344-4 ####[facility] [id number] [place] [address] [place] Potassium [Moles/Vol] 4.9 mmol/L Normal 3.5-5.0 [facility] Comment on above: Order Comment: Speci men Type: VENOUS BLOOD SPECIMENOrdering Facility: [facility] Address: [address] [place] [address] Performed By: #### 2 4344-4 ####[facility] [id number] [place] [address] [place] Sodium [Moles/Vol] 137 mmol/L Normal 136-144 [facility] Comment on above: Order Comment: Speci men Type: VENOUS BLOOD SPECIMENOrdering Facility: [facility] Address: [address] [place] [address] Performed By: #### 2 4344-4 ####[facility] [id number] [place] [address] [place] HBV surface Ab Ql (S)on 04-28 HBV surface Ab Qn (S) <8.00 Normal [facility] Comment on above: Order Comment: Speci men Type: BLOOD SPECIMEN [facility] Address: [address] [place] [address] Result Comment: <8 m IU/mL: No serological evidence of immunity to Hepatitis B Virus. >/= 8 to <12 mIU/mL: No serological evidence of immunity to Hepatitis B Virus. >/= 12 mIU/mL: Consistent with serological evidence of immunity to Hepatitis B Virus. Performed By: #### 5 7021-8 #### [facility] CLIA [id number] [place] HBV surface Ab Ser Qlon 04-28 HBV surface Ab Ql (S) Negative Normal [facility] Comment on above: Order Comment: Speci men Type: BLOOD SPECIMEN [facility] Address: [address] [place] [address] Result Comment: No s erological evidence of immunity to Hepatitis B Virus. Performed By: #### 5 7021-8 #### [facility] CLIA [id number] [address] [place] [address] [place] HBV surface Ag Ser Qlon 04-28 HBV surface Ag Ql (S) Negative Normal Negative [facility] Comment on above: Order Comment: Speci men Type: BLOOD SPECIMEN [facility] Address: [address] [place] [address] Performed By: #### 5 7021-8 #### [facility] CLIA [id number] [address] [place] [address] [place] NURSING PROGon 05-12-2023 NURSING PROG HNO ID: [id number] Author: BRENNA NORMAN, RN Service: Nursing Author Type: Registered Nurse Type: Nursing Progress Note Filed: 05/12/2023 06:10 Note Text: Other: m23-39 PaolanicolelizaLavinia is on dialysis, please place VBG order for potassium, also change LR order to Normal Sal[place], FYI, thanks brenna [id number], Dr Robert mata AND notified Normal [facility] OPERATIVE NOon 05-12-2023 OPERATIVE NO HNO ID: [id number] Author: YOVANI PEOPLES MD Service: Urology Author Type: Physician Type: Operative Report Filed: 05/12/2023 13:05 Note Text: OPERATIVE/PROCEDURE REPORT LOG ID: [id number] Surgery/Procedure Date: 05/12/2023 Incision/Procedure Start Time: 8:05 AM Incision Close/Procedure End Time: 9:20 AM Surgeon(s)/Proceduralist (s) and Payroll Benefits Administrator(s): Surgeon(s) and Role: * Yovani Peoples MD - Primary * Mishel Boo MD - Resident - Assisting * Lamin Estrada MD - Resident - Assisting Procedure(s): Cystoscopy, Transurethral resection of bladder tumor, large (7 cm) Approach: Endoscopic Anesthesia: General Operative Indications: This is a 82 year old female with 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 Procedure Findings: - Non-trabeculated bladder with good bladder compliance - Large left papillary tumor overlying the left ureteral orifice, left hemitrigone, and invasive appearing to the left lateral bladder wall -Left ureteral orifice resected without additional coagulation over the orifice, papillary tumor extruding from left ureteral orifice with resection but did not visualize any tumor more proximally -Right ureteral orifice prior cuff scar noted Procedure Details: The patient was brought to the operating room, at which point a preoperative huddle was performed confirming the proper patient, procedure, site, medications, allergies, equipment, and personnel were accounted for. Thereafter, general anesthesia was introduced. The patient was then placed in lithotomy position, prepped with betadine solution, and draped in the standard sterile fashion. The 26F rigid gyrus resectoscope was inserted with the visual obturator and complete cystourethroscopy was performed using the 30-degree revealing the above-mentioned findings. Using the loop electrocautery, a complete resection of all visible lesions was performed down to the deep layers of the muscularis propria. Care was taken to resect over the left ureteral orifice once visualized after resection of the large tumor which occupied a large volume of the bladder upon entry with the cystoscope. The tumor was resected and then a separate specimen was sent from the tumor base. Hemostasis of all resection sites was performed using the loop electrocautery. A 18Fr Barillas catheter was then inserted and there was return of clear urine. The patient was then lightened from anesthesia and transferred to the recovery room under stable conditions having tolerated the procedure well without incident or complication. Pre-Op/Pre-Procedure Diagnosis: Pre-Op Diagnosis Codes: * Malignant neoplasm of urinary bladder, unspecified site (HCC) [C67.9] * Gross hematuria [R31.0] Post-Op/Post-Procedure Diagnosis: same Estimated Blood Loss: 15 mls Specimens: ID Type Source Tests Collected by Time Destination A : bladder tumor 1 Tissue BLADDER TRANSURETHRAL RESECTION SURGICAL PATHOLOGY Yovani Peoples MD 05/12/2023 8:10 AM B : bladder tumor 2 Tissue BLADDER TRANSURETHRAL RESECTION SURGICAL PATHOLOGY Yovani Peoples MD 05/12/2023 8:56 AM C : deep bladder tumor base Tissue BLADDER TRANSURETHRAL RESECTION SURGICAL PATHOLOGY Yovani Peoples MD 05/12/2023 8:56 AM Drains: 18Fr barillas catheter Complications: None Qualifier: None Mishel Boo MD, dictating on behalf of Dr. Shelton Peoples, the primary proceduralist, performed the critical steps of the entire procedure with the assistance of Dr. Boo and Dr. Estrada. Normal [facility] SURGICAL PATHOLOGYon 024 BLOCK FOR ADDITIONAL BIOMARKERS/MOLECULAR STUDIES A2, B3 Normal [facility] Comment on above: Order Comment: Speci men Type: TISSUE SPECIMENOrdering Facility: [facility] Address: [address] [place] [address] Performed By: #### S ####[facility] [id number] [facility] [id number] [place] [address] [place] CASE REPORT Normal [facility] Comment on above: Order Comment: Speci men Type: TISSUE SPECIMENOrdering Facility: [facility] Address: [address] [place] [address] Result Comment: Surg [facility] Pathology Report Case: [id number] Authorizing Provider: Yovani Peoples MD Collected: 05/12/2023 08:10 AM Ordering Location: Admitting Received: 05/12/2023 09:27 AM Pathologist: Consuelo Hinton MD Specimens: A) - BLADDER TRANSURETHRAL RESECTION, bladder tumor 1 B) - BLADDER TRANSURETHRAL RESECTION, bladder tumor 2 C) - BLADDER TRANSURETHRAL RESECTION, deep bladder tumor base Performed By: #### S ####[facility] [id number] [address] [place] CLINICAL HISTORY Normal [facility] Comment on above: Order Comment: Speci men Type: TISSUE SPECIMENOrdering Facility: [facility] Address: [address] [place] [address] Result Comment: Pre- op diagnosis: Malignant neoplasm of urinary bladder, unspecified site (HCC) [C67.9] Gross hematuria [R31.0] Performed By: #### S ####[facility] [id number] [address] FINAL DIAGNOSIS Normal [facility] Comment on above: Order Comment: Speci men Type: TISSUE SPECIMENOrdering Facility: [facility] Address: [address] [place] [address] Result Comment: A. U rinary bladder, tumor 1, transurethral resection: - Urothelial carcinoma, papillary and invasive, high-grade. - Lamina propria invasion is present (at least pT1). - No definite muscularis propria is present for evaluation. B. Urinary bladder, tumor 2, transurethral resection: - Urothelial carcinoma, papillary and invasive, high-grade. - Lamina propria invasion is present (at least pT1). - Muscularis propria is present for evaluation and negative for neoplasm. C. Urinary bladder, deep tumor base, transurethral resection: - Urothelial carcinoma, papillary noninvasive, high-grade. - No invasion identified (at least medical services assistant). - Muscularis propria is present for evaluation and negative for neoplasm. Performed By: #### S ####[facility] [id number] [place] [address] [place] FINAL PERFORMING LAB Normal [facility] Comment on above: Order Comment: Speci men Type: TISSUE SPECIMENOrdering Facility: [facility] Address: [address] [place] [address] Result Comment: Diag nostic interpretation performed at [facility], [facility] [place] [address] CLIA# [id number] Entertainment Agent: Boston Boo M.D. Performed By: #### S ####[facility] [id number] [place] [address] [place] GROSS DESCRIPTION Normal [facility] Comment on above: Order Comment: Speci men Type: TISSUE SPECIMENOrdering Facility: [facility] Address: [address] [place] [address] Result Comment: A. B LADDER TRANSURETHRAL RESECTION Received in formalin are multiple pieces of montes, soft tissue aggregating to 12.5 x 2.0 x 0.5 cm. Totally submitted in 5 cassettes. B. BLADDER TRANSURETHRAL RESECTION Received in formalin are multiple pieces of montes, soft tissue aggregating to 12.5 x 2.0 x 0.5 cm. Totally submitted in 5 cassettes. C. BLADDER TRANSURETHRAL RESECTION Received in formalin are multiple pieces of montes, soft tissue aggregating to 1.8 x 1.0 x 0.3 cm. Totally submitted in one cassette. GMR May 12, 2023 12:58 PM Gross examination performed at [facility], [address] [place] [address] Performed By: #### S ####[facility] [id number] [place] [address] [place] Urea nitrogen post dialysis [Mass/Vol]on 05-12-2023 UREA REDUCTION RATIO WITH BUNPR 79 % Normal [facility] Comment on above: Order Comment: Speci men Type: BLOOD SPECIMEN [facility] Address: [address] [place] [address] Performed By: #### 1 1064-3 #### [facility] CLIA [id number] [address] [place] [address] [place] CBC W Auto Differential pane l (Bld)on 05-05-2023 Anisocytosis Ql (Bld) Present Normal [facility] Comment on above: Order Comment: Speci men Type: BLOOD SPECIMEN [facility] Address: [address] [place] [address] Performed By: #### 5 7021-8 #### [facility] CLIA [id number] [address] [place] [address] [place] Basophils (Bld) [#/Vol] 0.05 10*3/uL Normal <0.11 [facility] Comment on above: Order Comment: Speci men Type: BLOOD SPECIMEN [facility] Address: [address] [place] [address] Performed By: #### 5 7021-8 #### [facility] CLIA [id number] [address] [place] [address] [place] Basophils/100 WBC (Bld) 0.9 % Normal [facility] Comment on above: Order Comment: Speci men Type: BLOOD SPECIMEN [facility] Address: [address] [place] [address] Performed By: #### 5 7021-8 #### [facility] CLIA [id number] [address] [place] [address] [place] Dacrocytes LM Ql (Bld) Few Normal [facility] Comment on above: Order Comment: Speci men Type: BLOOD SPECIMEN [facility] Address: [address] [place] [address] Performed By: #### 5 7021-8 #### [facility] CLIA [id number] [address] [place] [address] [place] Differential cell count method Nom (Bld) Manual Normal [facility] Comment on above: Order Comment: Speci men Type: BLOOD SPECIMEN [facility] Address: [address] [place] [address] Performed By: #### 5 7021-8 #### [facility] CLIA [id number] [address] [place] [address] [place] Eosinophils (Bld) [#/Vol] 0.33 10*3/uL Normal <0.46 [facility] Comment on above: Order Comment: Speci men Type: BLOOD SPECIMEN [facility] Address: [address] [place] [address] Performed By: #### 5 7021-8 #### [facility] CLIA [id number] [address] [place] [address] [place] Eosinophils/100 WBC (Bld) 5.4 % Normal [facility] Comment on above: Order Comment: Speci men Type: BLOOD SPECIMEN [facility] Address: [address] [place] [address] Performed By: #### 5 7021-8 #### [facility] CLIA [id number] [address] [place] [address] [place] Erythrocyte distribution width (RBC) [Ratio] 15.2 % High 11.5-15.0 [facility] Comment on above: Order Comment: Speci men Type: BLOOD SPECIMEN [facility] Address: [address] [place] [address] Performed By: #### 5 7021-8 #### [facility] CLIA [id number] [address] [place] [address] [place] Hematocrit (Bld) [Volume fraction] 29.9 % Low 36.0-46.0 [facility] Comment on above: Order Comment: Speci men Type: BLOOD SPECIMEN [facility] Address: [address] [place] [address] Performed By: #### 5 7021-8 #### [facility] CLIA [id number] [address] [place] [address] [place] Hemoglobin (Bld) [Mass/Vol] 9.3 g/dL Low 11.5-15.5 [facility] Comment on above: Order Comment: Speci men Type: BLOOD SPECIMEN [facility] Address: [address] [place] [address] Performed By: #### 5 7021-8 #### [facility] CLIA [id number] [facility] [place] [address] [place] Lymphocytes (Bld) [#/Vol] 1.51 10*3/uL Normal 1.00-4.00 [facility] Comment on above: Order Comment: Speci men Type: BLOOD SPECIMEN [facility] Address: [address] [place] [address] Performed By: #### 5 7021-8 #### [facility] CLIA [id number] [address] [place] [address] [place] Lymphocytes/100 WBC (Bld) 25.0 % Normal [facility] Comment on above: Order Comment: Speci men Type: BLOOD SPECIMEN [facility] Address: [address] [place] [address] Performed By: #### 5 7021-8 #### [facility] CLIA [id number] [address] [place] [address] [place] MCH (RBC) [Entitic mass] 31.1 pg Normal 26.0-34.0 [facility] Comment on above: Order Comment: Speci men Type: BLOOD SPECIMEN Ordering Facility: [facility] Address: [address] [place] [address] Performed By: #### 5 7021-8 #### [facility] CLIA [id number] [address] [place] [address] [place] MCHC (RBC) [Mass/Vol] 31.1 g/dL Normal 30.5-36.0 [facility] Comment on above: Order Comment: Speci men Type: BLOOD SPECIMEN Ordering Facility: [facility] Address: [address] [place] [address] Performed By: #### 5 7021-8 #### [facility] CLIA [id number] [address] [place] [address] [place] MCV (RBC) [Entitic vol] 100.0 fL Normal 80.0-100.0 [facility] Comment on above: Order Comment: Speci men Type: BLOOD SPECIMEN Ordering Facility: [facility] Address: [address] [place] [address] Performed By: #### 5 7021-8 #### [facility] CLIA [id number] [address] [place] [address] [place] Monocytes (Bld) [#/Vol] 0.22 10*3/uL Normal <0.87 [facility] Comment on above: Order Comment: Speci men Type: BLOOD SPECIMEN Ordering Facility: [facility] Address: [address] [place] [address] Performed By: #### 5 7021-8 #### [facility] CLIA [id number] [address] [place] [address] [place] Monocytes/100 WBC (Bld) 3.6 % Normal [facility] Comment on above: Order Comment: Speci men Type: BLOOD SPECIMEN Ordering Facility: [facility] Address: [address] [place] [address] Performed By: #### 5 7021-8 #### [facility] CLIA [id number] [address] [place] [address] [place] Neutrophils (Bld) [#/Vol] 3.93 10*3/uL Normal 1.45-7.50 [facility] Comment on above: Order Comment: Speci men Type: BLOOD SPECIMEN Ordering Facility: [facility] Address: [address] [place] [address] Performed By: #### 5 7021-8 #### [facility] CLIA [id number] [address] [place] [address] [place] Neutrophils/100 WBC (Bld) 65.1 % Normal [facility] Comment on above: Order Comment: Speci men Type: BLOOD SPECIMEN Ordering Facility: [facility] Address: [address] [place] [address] Performed By: #### 5 7021-8 #### [facility] CLIA [id number] [address] [place] [address] [place] Nucleated RBC (Bld) [#/Vol] 10*3/uL Normal <0.01 [facility] Comment on above: Order Comment: Speci men Type: BLOOD SPECIMEN Ordering Facility: [facility] Address: [address] [place] [address] Performed By: #### 5 7021-8 #### [facility] CLIA [id number] [address] [place] [address] [place] Nucleated RBC/100 WBC (Bld) [Ratio] 0.0 /100 WBC Normal [facility] Comment on above: Order Comment: Speci men Type: BLOOD SPECIMEN Ordering Facility: [facility] Address: [address] [place] [address] Performed By: #### 5 7021-8 #### [facility] CLIA [id number] [address] [place] [address] [place] Platelet mean volume (Bld) [Entitic vol] 10.8 fL Normal 9.0-12.7 [facility] Comment on above: Order Comment: Speci men Type: BLOOD SPECIMEN Ordering Facility: [facility] Address: [address] [place] [address] Performed By: #### 5 7021-8 #### [facility] CLIA [id number] [address] [place] [address] [place] Platelets (Bld) [#/Vol] 149 10*3/uL Low 150-400 [facility] Comment on above: Order Comment: Speci men Type: BLOOD SPECIMEN Ordering Facility: [facility] Address: [address] [place] [address] Performed By: #### 5 7021-8 #### [facility] CLIA [id number] [address] [place] [address] [place] Platelets Estimate (Bld) [#/Vol] Decreased Normal [facility] Comment on above: Order Comment: Speci men Type: BLOOD SPECIMEN Ordering Facility: [facility] Address: [address] [place] [address] Performed By: #### 5 7021-8 #### [facility] CLIA [id number] [address] [place] [address] [place] Polychromasia LM Ql (Bld) Slight Normal [facility] Comment on above: Order Comment: Speci men Type: BLOOD SPECIMEN Ordering Facility: [facility] Address: [address] [place] [address] Performed By: #### 5 7021-8 #### [facility] CLIA [id number] [address] [place] [address] [place] RBC (Bld) [#/Vol] 2.99 10*6/uL Low 3.90-5.20 [facility] Comment on above: Order Comment: Speci men Type: BLOOD SPECIMEN Ordering Facility: [facility] Address: [address] [place] [address] Performed By: #### 5 7021-8 #### [facility] CLIA [id number] [address] [place] [address] [place] RED CELL MORPH Reviewed: see result s of individual morphologies Normal [facility] Comment on above: Order Comment: Speci men Type: BLOOD SPECIMEN Ordering Facility: [facility] Address: [address] [place] [address] Performed By: #### 5 7021-8 #### [facility] CLIA [id number] [address] [place] [address] [place] Target cells LM Ql (Bld) Few Normal [facility] Comment on above: Order Comment: Speci men Type: BLOOD SPECIMEN Ordering Facility: [facility] Address: [address] [place] [address] Performed By: #### 5 7021-8 #### [facility] CLIA [id number] [address] [place] [address] [place] WBC (Bld) [#/Vol] 6.04 10*3/uL Normal 3.70-11.00 [facility] Comment on above: Order Comment: Speci men Type: BLOOD SPECIMEN Ordering Facility: [facility] Address: [address] [place] [address] Performed By: #### 5 7021-8 #### [facility] CLIA [id number] [address] [place] ECG COMPLETEon 05-05-2023 ECG COMPLETE Ventricular Rate : 7 9 BPM Atrial Rate : 79 BPM P-R Interval : 248 ms QRS Duration : 80 ms Q-T Interval : 376 ms QTC Calculation(Bazett) : 431 ms Calculated P Hematite : 64 degrees Calculated R Hematite : 20 degrees Calculated T Hematite : 66 degrees SINUS RHYTHM WITH 1ST DEGREE AV BLOCK MINIMAL VOLTAGE CRITERIA FOR LVH, MAY BE NORMAL VARIANT POSSIBLE ANTEROSEPTAL MYOCARDIAL INFARCTION , AGE UNDETERMINED ABNORMAL ECG Confirmed by OMAR CHRIS MD ([id number]) on 05/30/2023 1:50:54 PM NAME : LAVINIA DURAND PID : [id number] : 1940 Gender : Female Race : ORD : [id number] Procedure Date : May 05 2023 14:50:18 Edit Date : May 30 2023 13:50:58 Diagnosis: SINUS RHYTHM WITH 1ST DEGREE AV BLOCK MINIMAL VOLTAGE CRITERIA FOR LVH, MAY BE NORMAL VARIANT POSSIBLE ANTEROSEPTAL MYOCARDIAL INFARCTION , AGE UNDETERMINED ABNORMAL ECG Confirmed by OMAR CHRIS MD ([id number]) on 05/30/2023 1:50:54 PM Test Reason : Location : 119 : A17 Overread By : OMAR CHRIS MD Edited By : OMAR CHRIS MD Referred By : , Acquired by : LOWELL CASTELLANOS [facility] HISTORY PHYSICALon HISTORY PHYSICAL HNO ID: [id number] Author: ANNE MORALEZ PA-C Service: ? Author Type: Physician Payroll Benefits Administrator Type: H&P Filed: 05/07/2023 08:23 Note Text: HISTORY AND PHYSICAL EXAMINATION SERVICE DATE: 05/05/2023 SERVICE TIME: 10:54 AM PRIMARY CARE PHYSICIAN: Shira Roy MD Assessment Patient has the following medical conditions which may affect sandra-operative course: Hypertension Assessment: Stable, compliant on Hydralazine, Amlodipine, Nifedipine, Carvedilol. Follows with PCP. Last 3 Encounter BP Readings: Date: BP: 05/05/2023 166/69 11/26/2021 179/81 11/23/2021 161/60 ESRD (end stage renal disease) ([facility]) Assessment: started HD in September 2022, undergoes HD MWF LUE AVF. Follows with nephrology GERD (gastroesophageal reflux disease) Assessment: stable on Pepcid Neoplasm of bladder Assessment: s/p TURBT on 11/26/2021 Diabetes ([facility]) Assessment: No longer on Rx. States most recent HgbA1c was 4.3, was taken off insulin and managed with diet and lifestyle. Encouraged lifestyle modifications. Hemoglobin A1C (%) Date Value 10/25/2020 6.2 ) Anemia Assessment: 2/2 ESRD, most recent CBC 04/18/2023: Hgb 9.1 Hypothyroidism Assessment: stable on Synthroid Acute on chronic diastolic congestive heart failure (HCC) Assessment: Follows cardiology, Dr. Kwon at [place], last OV 10/2021. Compliant on medications. Appears euvolemic, denies new or worsening cardiac symptoms. Reports chronic STARK that has been present for 2-3 years, denies any worsening symptoms Ejection Fraction - Result: 63 % Date: 10/27/2020 Time: 14:13:41 Hypercholesteremia Assessment: stable on Atorvastatin Cardiac murmur Assessment: systolic murmur noted on exam, ECHO 10/2020: mild aortic valve thickening, mild AI - Denies any CP, SOB, dyspnea, dizziness, palpitations, edema or syncope . Chronic STARK that is unchanged per patient Nelson Activity Status Index: METS: Walk a block or two on level ground (2.75 METs) DASI Score: 2.75 Patient denies any chest pain or undue shortness of breath with the above physical activity. Clinical Frailty Scale: 4. Apparently vulnerable STOP-Bang Score: Has or is being treated for high blood pressure Patient over 50 years old Denies snoring loudly Denies feeling tired, fatigued, or sleepy during the daytime Has not been observed to stop breathing or choking/gasping during sleep BMI less than or equal to 35 kg/m2 Does not have a large neck Non-male patient STOP-Bang Score: 2 [id number] Score: CHF history: Yes Hypertension history: Yes Diabetes history: Yes BSA2SE5-FXLk Score: 3 ANESTHESIA FINDINGS: Intubation History: No history of difficult intubation. No abnormal airway history Significant Anesthesia Considerations: none Airway History: No history of difficult airway No abnormal airway history I - PHYSICAL EVALUATION AIRWAY Patient intubated: No. Tracheostomy tube not present Mallampati: II. TM distance: >3 FB. Neck ROM: full ROM without neurological symptoms. Mouth opening: adequate. Short neck: no. Thick neck: no Ramirez present: no Microretrognathia/Micron agthia/Recessed Chin: No DENTAL Dental findings: teeth intact. II - ANESTHESIA PLAN Anesthetic Plan: other Anesthetic plan additional comments: *[facility] - anesthesia choice. [facility] [place] Monitoring Plan Post Procedure Analgesic Plan REASON FOR VISIT: Lavinia Durand is a 82 year old female who is scheduled for Procedure(s): RESECTION BLADDER TUMOR TRANSURETHRAL (N/A) at the request of Yovani Hernandes MD for consultation. My final recommendation will be communicated back to the requesting physician by way of shared medical record or letter. 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 CHIEF COMPLAINT: pre op exam HPI: Patient is a 82 yo female who presents to [facility] for the above procedure. She reports history of bladder cancer s/p TURBT in 2021. Found to have recurrence on most recent cystoscopy and scheduled for TURBT. Denies any urinary symptoms presently, reports hematuria following most (more content not included)... Normal [facility] HbA1c (Bld)on 05-05-2023 Average glucose Estimated from glycated hemoglobin (Bld) [Mass/Vol] 68 mg/dL Normal [facility] Comment on above: Order Comment: Speci men Type: BLOOD SPECIMENOrdering Facility: [facility] Address: [address] [place] [address] Result Comment: eAG: (Estimated average glucose) is a calculated value from HgbA1c and is senior account representative of the average blood glucose level in the last 2-3 month period. Performed By: #### 5 5454-3 ####[facility] [id number] [address] [place] [facility] HbA1c (Bld) [Mass fraction] 4.0 % Low 4.3-5.6 [facility] Comment on above: Order Comment: Speci men Type: BLOOD SPECIMENOrdering Facility: [facility] Address: [address] [place] [address] Result Comment: [place] Diabetes Association guidelines indicate that patients with HgbA1c in the range 5.7-6.4% are at increased risk for development of diabetes, and intervention by lifestyle modification may be beneficial. HgbA1c greater or equal to 6.5% is considered diagnostic of diabetes. Performed By: #### 5 5454-3 ####[facility] [id number] [address] [place] XR CHEST 2V FRONTAL/LATon XR CHEST 2V FRONTAL/LAT * * *Final Repor t* * * DATE OF EXAM: May 05 2023 3:52PM AOX [id number] - XR CHEST 2V FRONTAL/LAT / PROCEDURE REASON: multiple diagnoses * * * * Physician Interpretation * * * * EXAMINATION: CHEST RADIOGRAPH (2 VIEW FRONTAL and LATERAL) CLINICAL HISTORY: Malignant neoplasm of urinary bladder, unspecified site (HCC) Gross hematuria MQ: [id number]_6 EXAM DATE/TIME: 05/05/2023 3:52 PM COMPARISON: 02/05/2021. RESULT: Lines, tubes, and devices: None. Lungs and pleura: Mild diffuse peribronchial thickening related to airway inflammation. Mild bibasilar atelectasis. No consolidation. No lung mass. No pleural effusion. No pneumothorax. Cardiomediastinal silhouette: Stable cardiomediastinal silhouette. Bones and soft tissues: Degenerative changes are present within the thoracic spine. IMPRESSION: Please see body of the report. Livestock Haulier: PSCB Transcribe Date/Time: May 06 2023 11:13A Dictated by : MORE NICHOLE MD This examination was interpreted and the report reviewed and electronically signed by: MORE NICHOLE MD on May 06 2023 11:15AM EST [id number] Normal [facility] Bacteria Ur Culton 3 Bacteria identified Cx Nom (U) CULTURE, URINE: No growth (<1,000 CFU/ml) Normal [facility] Comment on above: Performed By: #### 6 30-4 ####[facility] [id number] [address] [place] Basic metabolic 2000 panelon 04-18-2023 Anion gap [Moles/Vol] 12 mmol/L Normal 9-18 [facility] Comment on above: Order Comment: Speci men Type: BLOOD SPECIMENOrdering Facility: [facility] Address: [address] [place] [address] Performed By: #### 2 4321-2 ####[facility] [id number] [place] [address] [place] Calcium [Mass/Vol] 9.7 mg/dL Normal 8.5-10.2 [facility] Comment on above: Order Comment: Speci men Type: BLOOD SPECIMENOrdering Facility: [facility] Address: [address] [place] [address] Performed By: #### 2 4321-2 ####[facility] [id number] [place] [address] [place] Chloride [Moles/Vol] 98 mmol/L Normal 97-105 [facility] Comment on above: Order Comment: Speci men Type: BLOOD SPECIMENOrdering Facility: [facility] Address: [address] [place] [address] Performed By: #### 2 4321-2 ####[facility] [id number] [place] [address] [place] CO2 [Moles/Vol] 25 mmol/L Normal 22-30 [facility] Comment on above: Order Comment: Speci men Type: BLOOD SPECIMENOrdering Facility: [facility] Address: [address] [place] [address] Performed By: #### 2 4321-2 ####[facility] [id number] [place] [address] [place] Creatinine [Mass/Vol] 4.91 mg/dL High 0.58-0.96 [facility] Comment on above: Order Comment: Speci men Type: BLOOD SPECIMENOrdering Facility: [facility] Address: [address] [place] [address] Performed By: #### 2 4321-2 ####[facility] [id number] [place] [address] [place] Creatinine and Glomerular filtration rate.predicted panel (S/P/Bld) 8 mL/min/1.73m??? Low >=60 [facility] Comment on above: Order Comment: Speci men Type: BLOOD SPECIMENOrdering Facility: [facility] Address: [address] [place] [address] Result Comment: Isabelle mated Glomerular Filtration Rate (eGFR) is calculated using the 2020 CKD-EPI creatinine equation. This equation utilizes serum creatinine, sex, and age as parameters. The creatinine assay has traceable calibration to isotope dilution-mass spectrometry. Refer to KDIGO guidelines for clinical interpretation. In patients with unstable renal function, e.g. those with acute kidney injury, the eGFR may not accurately reflect actual GFR. Performed By: #### 2 4321-2 ####[facility] [id number] [place] [address] [place] Glucose [Mass/Vol] 151 mg/dL High 74-99 [facility] Comment on above: Order Comment: Noelle stevens Type: BLOOD SPECIMENOrdering Facility: [facility] Address: [address] [place] [address] Result Comment: The [place] Diabetes Association (ADA) provides guidance for cutoff values for fasting glucose and random glucose. The ADA defines fasting as no caloric intake for at least 8 hours. Fasting plasma glucose results between 100 to 125 mg/dL indicate increased risk for diabetes (prediabetes). Fasting plasma glucose results greater than or equal to 126 mg/dL meet the criteria for diagnosis of diabetes. In the absence of unequivocal hyperglycemia, results should be confirmed by repeat testing. In a patient with classic symptoms of hyperglycemia or hyperglycemic crisis, random plasma glucose results greater than or equal to 200 mg/dL meet the criteria for diagnosis of diabetes. Reference: Standards of Medical Care in Diabetes 2016, [place] Diabetes Association. Diabetes Care. 2016.39(Suppl 1). Performed By: #### 2 4321-2 ####[facility] [id number] [place] [address] [place] Potassium [Moles/Vol] 5.1 mmol/L Normal 3.7-5.1 [facility] Comment on above: Order Comment: Noelle stevens Type: BLOOD SPECIMENOrdering Facility: [facility] Address: [address] [place] [address] Performed By: #### 2 4321-2 ####[facility] [id number] [place] [address] [place] Sodium [Moles/Vol] 135 mmol/L Low 136-144 [facility] Comment on above: Order Comment: Speci men Type: BLOOD SPECIMENOrdering Facility: [facility] Address: [address] [place] [address] Performed By: #### 2 4321-2 ####[facility] [id number] [place] [address] [place] Urea nitrogen [Mass/Vol] 39 mg/dL High 7-21 [facility] Comment on above: Order Comment: Speci men Type: BLOOD SPECIMENOrdering Facility: [facility] Address: [address] [place] [address] Performed By: #### 2 4321-2 ####[facility] [id number] [place] [address] [place] CBC panel Auto (Bld)on 04-18 Erythrocyte distribution width (RBC) [Ratio] 14.9 % Normal 11.5-15.0 [facility] Comment on above: Order Comment: Speci men Type: BLOOD SPECIMEN [facility]ing Facility: [facility] Address: [address] [place] [address] Performed By: #### 5 7021-8 #### [facility] CLIA [id number] [address] [place] [address] [place] Hematocrit (Bld) [Volume fraction] 28.1 % Low 36.0-46.0 [facility] Comment on above: Order Comment: Speci men Type: BLOOD SPECIMEN [facility]ing Facility: [facility] Address: [address] [place] [address] Performed By: #### 5 7021-8 #### [facility] CLIA [id number] [address] [place] [address] [place] Hemoglobin (Bld) [Mass/Vol] 9.1 g/dL Low 11.5-15.5 [facility] Comment on above: Order Comment: Speci men Type: BLOOD SPECIMEN [facility]ing Facility: [facility] Address: [address] [place] [address] Performed By: #### 5 7021-8 #### [facility] CLIA [id number] [facility] [place] [address] [place] MCH (RBC) [Entitic mass] 32.4 pg Normal 26.0-34.0 [facility] Comment on above: Order Comment: Speci men Type: BLOOD SPECIMEN [facility]ing Facility: [facility] Address: [address] [place] [address] Performed By: #### 5 7021-8 #### [facility] CLIA [id number] [address] [place] [address] [place] MCHC (RBC) [Mass/Vol] 32.4 g/dL Normal 30.5-36.0 [facility] Comment on above: Order Comment: Speci men Type: BLOOD SPECIMEN [facility]ing Facility: [facility] Address: [address] [place] [address] Performed By: #### 5 7021-8 #### [facility] CLIA [id number] [address] [place] [address] [place] MCV (RBC) [Entitic vol] 100.0 fL Normal 80.0-100.0 [facility] Comment on above: Order Comment: Speci men Type: BLOOD SPECIMEN [facility]ing Facility: [facility] Address: [address] [place] [address] Performed By: #### 5 7021-8 #### [facility] CLIA [id number] [address] [place] [address] [place] Nucleated RBC (Bld) [#/Vol] 0.03 10*3/uL High <0.01 [facility] Comment on above: Order Comment: Speci men Type: BLOOD SPECIMEN [facility]ing Facility: [facility] Address: [address] [place] [address] Performed By: #### 5 7021-8 #### [facility] CLIA [id number] [address] [place] [address] [place] Platelet mean volume (Bld) [Entitic vol] 11.5 fL Normal 9.0-12.7 [facility] Comment on above: Order Comment: Speci men Type: BLOOD SPECIMEN [facility]ing Facility: [facility] Address: [address] [place] [address] Performed By: #### 5 7021-8 #### [facility] CLIA [id number] [address] [place] [address] [place] Platelets (Bld) [#/Vol] 176 10*3/uL Normal 150-400 [facility] Comment on above: Order Comment: Speci men Type: BLOOD SPECIMEN [facility]ing Facility: [facility] Address: [address] [place] [address] Performed By: #### 5 7021-8 #### [facility] CLIA [id number] [address] [place] [address] [place] RBC (Bld) [#/Vol] 2.81 10*6/uL Low 3.90-5.20 [facility] Comment on above: Order Comment: Speci men Type: BLOOD SPECIMEN [facility]ing Facility: [facility] Address: [address] [place] [address] Performed By: #### 5 7021-8 #### [facility] CLIA [id number] [address] [place] [address] [place] WBC (Bld) [#/Vol] 5.66 10*3/uL Normal 3.70-11.00 [facility] Comment on above: Order Comment: Speci men Type: BLOOD SPECIMEN [facility]ing Facility: [facility] Address: [address] [place] [address] Performed By: #### 5 7021-8 #### [facility] CLIA [id number] [address] [place] [address] [place] PT panel Coag (PPP)on 2022 INR Coag (PPP) [Relative time] 1.1 {INR} Normal 0.9-1.3 [facility] Comment on above: Order Comment: Speci men Type: BLOOD SPECIMEN [facility]ing Facility: [facility] Address: [place] [address] Result Comment: Mary min K Antagonist (VKA) Therapeutic Range: INR 2 to 3 (Target INR of 2.5) Note: For patients treated with VKA drugs, such as warfarin, the [place] [employer] 2012 Guideline recommends a therapeutic INR range of 2 to 3 (target INR of 2.5). This recommendation includes high-risk patients with antiphospholipid syndrome with previous arterial or venous thromboembolism, current-generation mechanical or bioprosthetic aortic heart valve replacement. Note: Patients with mechanical aortic valve replacement and additional risk factors for thromboembolic events (atrial fibrillation, previous thromboembolism, LV dysfunction, hypercoagulable conditions) or an older generation mechanical AVR (i.e., ball in-Cage) or any mechanical MVR should have a INR therapeutic range of 2.5 to 3.5 (target INR of 3). Joseluistt GH, et al. Chest 2012, 141:7S-47S Rosa Maria RA, et al. [facility] 2017, 70: 252-289 Performed By: #### 5 7021-8 #### [facility] CLIA [id number] [facility] [place] [address] [place] PT Coag (PPP) [Time] 11.8 s Normal 9.7-13.0 [facility] Comment on above: Order Comment: Speci men Type: BLOOD SPECIMEN Ordering Facility: [facility] Address: [place] [address] Performed By: #### 5 7021-8 #### [facility] CLIA [id number] [facility] [place] [id number] [place] TYPE AND SCREEN,30 DAYon ABO O Normal [facility] Comment on above: Order Comment: Speci men Type: BLOOD SPECIMENOrdering Facility: [facility] Address: [address] [place] [address] Performed By: #### T SCR30 ####[facility]IA [id number] [place] [address] [place] HISTORICAL AB SCR STATUS Negative Normal [facility] Comment on above: Order Comment: Speci men Type: BLOOD SPECIMENOrdering Facility: [facility] Address: [address] [place] [address] Performed By: #### T SCR30 ####[facility] BANKCLIA [id number] [place] [address] [place] Rh Nom (Bld) Positive Normal [facility] Comment on above: Order Comment: Speci men Type: BLOOD SPECIMENOrdering Facility: [facility] Address: [address] [place] [address] Performed By: #### T SCR30 ####CC [facility] BLOOD BANKCLIA [id number] [place] [address] [place] Urinalysis complete panel (U )on 04-18-2023 BACTERIA UL 4416.4 uL High Negative [facility] Comment on above: Order Comment: Speci men Type: URINE SPECIMENOrdering Facility: [facility] Address: [address] [place] [address] Performed By: #### 2 4356-8 ####[facility] [id number] [place] [address] [place] Bilirubin Ql (U) Negative Normal Negative [facility] Comment on above: Order Comment: Speci men Type: URINE SPECIMENOrdering Facility: [facility] Address: [address] [place] [address] Performed By: #### 2 4356-8 ####[facility] [id number] [place] [address] [place] Clarity (Unsp spec) Cloudy Abnormal Clear [facility] Comment on above: Order Comment: Speci men Type: URINE SPECIMENOrdering Facility: [facility] Address: [address] [place] [address] Performed By: #### 2 4356-8 ####[facility] [id number] [place] [address] [place] Color (U) Yellow Normal Yellow [facility] Comment on above: Order Comment: Speci men Type: URINE SPECIMENOrdering Facility: [facility] Address: [address] [place] [address] Performed By: #### 2 4356-8 ####[facility] [id number] [place] [address] [place] Epithelial cells LM.HPF (Urine sed) [#/Area] None Seen Normal [facility] Comment on above: Order Comment: Speci men Type: URINE SPECIMENOrdering Facility: [facility] Address: [address] [place] [address] Performed By: #### 2 4356-8 ####[facility] [id number] [place] [address] [place] Glucose Test strip (U) [Mass/Vol] Trace Abnormal Negative [facility] Comment on above: Order Comment: Speci men Type: URINE SPECIMENOrdering Facility: [facility] Address: [address] [place] [address] Performed By: #### 2 4356-8 ####[facility] [id number] [place] [address] [place] Hemoglobin Ql (U) 2+ Abnormal Negative [facility] Comment on above: Order Comment: Speci men Type: URINE SPECIMENOrdering Facility: [facility] Address: [address] [place] [address] Performed By: #### 2 4356-8 ####[facility] [id number] [id number] [address] [place] Hyaline casts (Urine sed) [#/Area] 4-10 /LPF Abnormal 0 /LPF [facility] Comment on above: Order Comment: Speci men Type: URINE SPECIMENOrdering Facility: [facility] Address: [address] [place] [address] Performed By: #### 2 4356-8 ####[facility] [id number] [place] [address] [place] Ketones Ql (U) Negative Normal Negative [facility] Comment on above: Order Comment: Speci men Type: URINE SPECIMENOrdering Facility: [facility] Address: [address] [place] [address] Performed By: #### 2 4356-8 ####[facility] [id number] [place] [address] [place] Leukocyte esterase Test strip Ql (U) Negative Normal Negative [facility] Comment on above: Order Comment: Speci men Type: URINE SPECIMENOrdering Facility: [facility] Address: [address] [place] [address] Performed By: #### 2 4356-8 ####[facility] [id number] [place] [address] [place] Nitrite Ql (U) Negative Normal Negative [facility] Comment on above: Order Comment: Speci men Type: URINE SPECIMENOrdering Facility: [facility] Address: [address] [place] [address] Performed By: #### 2 4356-8 ####[facility] [id number] [place] [address] [place] pH (U) 8.0 [pH] Normal <8.5 [facility] Comment on above: Order Comment: Speci men Type: URINE SPECIMENOrdering Facility: [facility] Address: [address] [place] [address] Performed By: #### 2 4356-8 ####[facility] [id number] [place] [address] [place] Protein (U) [Mass/Vol] 3+ Abnormal Negative Cl [facility] Comment on above: Order Comment: Speci men Type: URINE SPECIMENOrdering Facility: [facility] Address: [address] [place] [address] Performed By: #### 2 4356-8 ####[facility] [id number] [place] [address] [place] RBC LM.HPF (Urine sed) [#/Area] /[HPF] Abnormal 0-2 /HPF [facility] Comment on above: Order Comment: Speci men Type: URINE SPECIMENOrdering Facility: [facility] Address: [address] [place] [address] Performed By: #### 2 4356-8 ####[facility] [id number] [place] [address] [place] Specific gravity (U) [Rel density] 1.011 Normal 1.005-1.030 [facility] Comment on above: Order Comment: Speci men Type: URINE SPECIMENOrdering Facility: [facility] Address: [address] [place] [address] Performed By: #### 2 4356-8 ####[facility] [id number] [place] [address] [place] Urobilinogen Ql (U) 0.2 EU/dL Normal 0.2-1.0 EU/dL [facility] Comment on above: Order Comment: Speci men Type: URINE SPECIMENOrdering Facility: [facility] Address: [address] [place] [address] Performed By: #### 2 4356-8 ####[facility] [id number] [place] [address] [place] WBC LM.HPF (Urine sed) [#/Area] /[HPF] Abnormal 0-5 /HPF [facility] Comment on above: Order Comment: Speci men Type: URINE SPECIMENOrdering Facility: [facility] Address: [address] [place] [address] Performed By: #### 2 4356-8 ####[facility] [id number] [place] [address] [place] aPTT PPPon 04-18-2023 aPTT Coag (PPP) [Time] 26.4 s Normal 23.0-32.4 [facility] Comment on above: Order Comment: Speci men Type: BLOOD SPECIMEN Ordering Facility: [facility] Address: [address] [place] [address] Result Comment: Froz en Plasma Aliquot Performed By: #### 5 7021-8 #### [facility] CLIA [id number] [place] [address] [place] MRI ABDOMEN URO WO/W IVCONon 04-17-2023 MRI ABDOMEN URO WO/W IVCON * * *Final Report* * * DATE OF EXAM: Apr 17 2023 4:18PM [facility] 0686 - MRI ABDOMEN URO WO/W IVCON / PROCEDURE REASON: Malignant neoplasm of urinary bladder, unspecified site (HCC) * * * * Physician Interpretation * * * * MRI OF THE ABDOMEN/PELVIS WITHOUT AND WITH IV CONTRAST: CLINICAL HISTORY: 82 year old female with?HG UTC s/p robotic right nephroureterectomy in 10/2020 and TURBT on 03/12/2021 (HGT1) s/p induction?BCG. Tumor recurrence. No TECHNIQUE: Magnet: 1.5T scanner. Multiplanar MRI of the abdomen and pelvis with multiple sequences, performed before and after IV contrast, utilizing urogram protocol. Contrast: Intravenous: 12 ml of Dotarem COMPARISON: 11/01/2021 RESULT: Kidneys and urinary tract: Right: Nephroureterectomy without recurrence. Left: Renal cortical cysts. There is diffuse severe left hydroureteronephrosis. No evidence of upper tract filling defect or enhancing lesion. No contrast in the urinary tract on excretory phase. Bladder: 3.9 x 3.4 cm polypoid mass (12:36) obstructing the left UVJ Abdomen and Pelvis: Liver: No mass. Iron deposition. Subcentimeter right lobe hemangioma. Biliary: No bile duct dilation. Cholelithiasis. Spleen: No mass. No splenomegaly. Siderosis. Pancreas: No mass or duct dilation. Several pancreatic cystic lesions, largest measuring 1.5 cm (11:29), previously 1.1 cm. Adrenals: No mass. GI tract: No dilation or wall thickening. Lymph nodes: No abdominal or pelvic lymphadenopathy. Mesentery/Peritoneum: No ascites or mass. Retroperitoneum: No mass. Vasculature: - Abdominal aorta and iliac arteries: Atherosclerotic calcifications without aneurysm. - Celiac and SMA: Patent without stenosis. - Portal venous system (SMV, splenic vein, portal vein and branches): Patent. - Hepatic veins: Patent. Pelvis: Small amount of free fluid. Bladder mass. No additional lesion. Bones and Soft Tissues: Degenerative change. No evidence of osseous metastatic disease. Unchanged 0.8 cm enhancing nodule in the subcutaneous tissue of the right flank (23:39); this is indeterminate but stability suggests benign etiology. Lower thorax: Unremarkable. IMPRESSION: 3.9 x 3.4 cm polypoid bladder mass obstructing the left UVJ resulting in severe left hydroureteronephrosis. No metastatic disease in the abdomen/pelvis or evidence of left upper tract mass. No recurrence status post right nephroureterectomy. 1.5 cm cystic lesion in the pancreatic head, slightly larger since 11/01/2021, likely sidebranch IPMN. Livestock Haulier: GABRIELA Transcribe Date/Time: Apr 18 2023 8:35A Dictated by : THERON GUADARRAMA MD This examination was interpreted and the report reviewed and electronically signed by: THERON GUADARRAMA MD on Apr 18 2023 9:07AM EST [id number] Normal [facility] MRI PELVIS URO WO/W IVCONon 04-17-2023 MRI PELVIS URO WO/W IVCON * * *Final Report* * * DATE OF EXAM: Apr 17 2023 4:18PM [facility] 0739 - MRI PELVIS URO WO/W IVCON / PROCEDURE REASON: Malignant neoplasm of urinary bladder, unspecified site (HCC) * * * * Physician Interpretation * * * * MRI OF THE ABDOMEN/PELVIS WITHOUT AND WITH IV CONTRAST: CLINICAL HISTORY: 82 year old female with?HG UTC s/p robotic right nephroureterectomy in 10/2020 and TURBT on 03/12/2021 (HGT1) s/p induction?BCG. Tumor recurrence. No TECHNIQUE: Magnet: 1.5T scanner. Multiplanar MRI of the abdomen and pelvis with multiple sequences, performed before and after IV contrast, utilizing urogram protocol. Contrast: Intravenous: 12 ml of Dotarem COMPARISON: 11/01/2021 RESULT: Kidneys and urinary tract: Right: Nephroureterectomy without recurrence. Left: Renal cortical cysts. There is diffuse severe left hydroureteronephrosis. No evidence of upper tract filling defect or enhancing lesion. No contrast in the urinary tract on excretory phase. Bladder: 3.9 x 3.4 cm polypoid mass (12:36) obstructing the left UVJ Abdomen and Pelvis: Liver: No mass. Iron deposition. Subcentimeter right lobe hemangioma. Biliary: No bile duct dilation. Cholelithiasis. Spleen: No mass. No splenomegaly. Siderosis. Pancreas: No mass or duct dilation. Several pancreatic cystic lesions, largest measuring 1.5 cm (11:29), previously 1.1 cm. Adrenals: No mass. GI tract: No dilation or wall thickening. Lymph nodes: No abdominal or pelvic lymphadenopathy. Mesentery/Peritoneum: No ascites or mass. Retroperitoneum: No mass. Vasculature: - Abdominal aorta and iliac arteries: Atherosclerotic calcifications without aneurysm. - Celiac and SMA: Patent without stenosis. - Portal venous system (SMV, splenic vein, portal vein and branches): Patent. - Hepatic veins: Patent. Pelvis: Small amount of free fluid. Bladder mass. No additional lesion. Bones and Soft Tissues: Degenerative change. No evidence of osseous metastatic disease. Unchanged 0.8 cm enhancing nodule in the subcutaneous tissue of the right flank (23:39); this is indeterminate but stability suggests benign etiology. Lower thorax: Unremarkable. IMPRESSION: 3.9 x 3.4 cm polypoid bladder mass obstructing the left UVJ resulting in severe left hydroureteronephrosis. No metastatic disease in the abdomen/pelvis or evidence of left upper tract mass. No recurrence status post right nephroureterectomy. 1.5 cm cystic lesion in the pancreatic head, slightly larger since 11/01/2021, likely sidebranch IPMN. Livestock Haulier: GABRIELA Transcribe Date/Time: Apr 18 2023 8:35A Dictated by : THERON GUADARRAMA MD This examination was interpreted and the report reviewed and electronically signed by: THERON GUADARRAMA MD on Apr 18 2023 9:07AM EST [id number] Normal [facility] CNPN Telephone (UROLMN) -------- LAVINIA DURAND ([id number]) 1940 F Date Time Provider Department 04/16/23 ABIEL SMITH During your visit today, we recorded the following information about you: Abiel Smith MD 04/16/2023 10:28 AM Signed Patient not able to undergo CT Urogram due to elevated Cr. Will order MR Urogram for evaluation of upper tracts with history of hematuria and bladder cancer. Abiel Smith MD Allergies As of Date: 04/16/2023 Noted Allergy Reaction ATORVASTATIN 11/23/2021 5 - Intolerance Comments: Severe fatigue HUMIRA (ADALIMUMAB) 02/28/2020 2 - Rash Date Reviewed: 04/16/2023 Reviewed by: Miladis Blevins, RT(R) - Fully Assessed Primary Visit Diagnosis:Malignant neoplasm of urinary bladder, unspecified site (HCC) [C67.9] Order(s):MRI ABDOMEN URO WO/W IVCON [[id number]] Order #: [id number] FUTURE MRI PELVIS URO WO/W IVCON [[id number]] Order #: [id number] FUTURE iv contrast (will be provided with radiology test)MRI ABD/PEL UROGRAM Inject, intravenously, once for 1 dose. No IV access, insert saline lock prior to the beginning of sedation, infusion, injection of imaging exam. Discontinue saline lock post exam. If Pt has a central line or IVAD, may access for administration according to line specific nursing protocol. Once exam is complete flush line and de-access according to line specific nursing protocol in the MR contrast administration guidelines linkDisp: 1 EachRfl: 0 Prescriptions as of 04/16/2023 - iv contrast (will be provided with radiology test) MRI ABD/PEL UROGRAM Inject, intravenously, once for 1 dose. No IV access, insert saline lock prior to the beginning of sedation, infusion, injection of imaging exam. Discontinue saline lock post exam. If Pt has a central line or IVAD, may access for administration according to line specific nursing protocol. Once exam is complete flush line and de-access according to line specific nursing protocol in the MR contrast administration guidelines link - iv contrast (will be provided with radiology test) CT Urogram WO/W Inject, intravenously, once for 1 dose.No IV access, insert saline lock prior to the beginning of sedation, infusion, injection of imaging exam. Discontinue saline lock post exam. If Pt. has a central line or IVAD, may access for administration according to line specific nursing protocol. Once exam is complete flush line and de-access according to line specific nursing protocol in the CT contrast administration guidelines link. - 0.9 % sodium chloride (NACL 0.9%) infusion Administer at rate defined per CT contrast administration specifications. To be provided with radiology test. - acetaminophen (TYLENOL EXTRA STRENGTH) 500 mg tablet Take 2 tablets by mouth every 6 hours as needed for pain. - furosemide (LASIX) 20 mg tablet Take 20 mg by mouth every other day. - carvedilol (COREG) 12.5 mg tablet Take 1 tablet by mouth twice daily with meals. - atorvastatin (LIPITOR) 20 mg tablet Take 1 tablet by mouth once daily. - indapamide (LOZOL) 1.25 mg tablet Take 1 tablet by mouth once daily. - acetaminophen (TYLENOL) 500 mg tablet Take 500 mg by mouth every 6 hours as needed for pain. - bisacodyl (DULCOLAX) 10 mg supp 1 Suppository by RECTAL route once daily as needed for constipation. - hydrALAZINE (APRESOLINE) 25 mg tablet Take 25 mg by mouth three times daily. - amLODIPine (NORVASC) 10 mg tablet Take 10 mg by mouth once daily. - pantoprazole DR (PROTONIX) 40 mg tablet Take 40 mg by mouth once daily. - famotidine (PEPCID) 40 mg tablet Take 40 mg by mouth once daily. - benazepril (LOTENSIN) 20 mg tablet Take 20 mg by mouth twice daily. - insulin lispro (HUMALOG KWIKPEN INSULIN SUBCUTANEOUS) Inject 8 Units subcutaneously twice daily before meals. - insulin glargine (LANTUS SOLOSTAR U-100 INSULIN) 100 unit/mL (3 mL) Inject 8 Units subcutaneously daily at bedtime. - levothyroxine (SYNTHROID) 25 mcg tablet Take 25 mcg by mouth daily before breakfast. - CETIRIZINE HCL (ZYRTEC ORAL) Take 5 mg by mouth at bedtime as needed (itching). - gabapentin (NEURONTIN) 300 mg capsule Take 1 capsule by mouth three times daily. / Actual start date 02/12/15 - fenofibrate nanocrystallized (TRICOR) 145 mg tablet Take 145 mg by mouth once daily. - bimatoprost (LUMIGAN) 0.01 % drop ophthalmic drops Use 1 Drop in both eyes daily at bedtime. - cholecalciferol, Vitamin D3, 50,000 unit cap capsule Take 50,000 Units by mouth every 2 weeks. Problem List As Of Date 04/16/2023 Noted Resolved Lumbar canal stenosis [M48.061] 07/30/2011 Hypertension [I10] Diabetes (HCC) [E11.9] Hypercholesteremia [E78.00] Arthritis [M19.90] GERD (gastroesophageal reflux disease) [K21.9] Hypothyroidism [E03.9] Encounter for follow-up surveillance of urothel*11/03/2020 Stage 3b chronic kidney diseas (more content not included)... Normal [facility] Demetria 04-14-2023 MYLA Telephone (DAVONTE) -------- LAVINIA DURAND ([id number]) 1940 F Date Time Provider Department 04/14/23 ABIEL SMITH During your visit today, we recorded the following information about you: Allergies As of Date: 04/14/2023 Noted Allergy Reaction ATORVASTATIN 11/23/2021 5 - Intolerance Comments: Severe fatigue HUMIRA (ADALIMUMAB) 02/28/2020 2 - Rash Date Reviewed: 04/03/2023 Reviewed by: Elliot Webster Ma - Fully Assessed Primary Visit Diagnosis:Acute cystitis with hematuria [N30.01] Order(s):CREATININE BLD [SQCRET] Order #: [id number] FUTURE Prescriptions as of 04/14/2023 - iv contrast (will be provided with radiology test) CT Urogram WO/W Inject, intravenously, once for 1 dose.No IV access, insert saline lock prior to the beginning of sedation, infusion, injection of imaging exam. Discontinue saline lock post exam. If Pt. has a central line or IVAD, may access for administration according to line specific nursing protocol. Once exam is complete flush line and de-access according to line specific nursing protocol in the CT contrast administration guidelines link. - 0.9 % sodium chloride (NACL 0.9%) infusion Administer at rate defined per CT contrast administration specifications. To be provided with radiology test. - acetaminophen (TYLENOL EXTRA STRENGTH) 500 mg tablet Take 2 tablets by mouth every 6 hours as needed for pain. - furosemide (LASIX) 20 mg tablet Take 20 mg by mouth every other day. - carvedilol (COREG) 12.5 mg tablet Take 1 tablet by mouth twice daily with meals. - atorvastatin (LIPITOR) 20 mg tablet Take 1 tablet by mouth once daily. - indapamide (LOZOL) 1.25 mg tablet Take 1 tablet by mouth once daily. - acetaminophen (TYLENOL) 500 mg tablet Take 500 mg by mouth every 6 hours as needed for pain. - bisacodyl (DULCOLAX) 10 mg supp 1 Suppository by RECTAL route once daily as needed for constipation. - hydrALAZINE (APRESOLINE) 25 mg tablet Take 25 mg by mouth three times daily. - amLODIPine (NORVASC) 10 mg tablet Take 10 mg by mouth once daily. - pantoprazole DR (PROTONIX) 40 mg tablet Take 40 mg by mouth once daily. - famotidine (PEPCID) 40 mg tablet Take 40 mg by mouth once daily. - benazepril (LOTENSIN) 20 mg tablet Take 20 mg by mouth twice daily. - insulin lispro (HUMALOG KWIKPEN INSULIN SUBCUTANEOUS) Inject 8 Units subcutaneously twice daily before meals. - insulin glargine (LANTUS SOLOSTAR U-100 INSULIN) 100 unit/mL (3 mL) Inject 8 Units subcutaneously daily at bedtime. - levothyroxine (SYNTHROID) 25 mcg tablet Take 25 mcg by mouth daily before breakfast. - CETIRIZINE HCL (ZYRTEC ORAL) Take 5 mg by mouth at bedtime as needed (itching). - gabapentin (NEURONTIN) 300 mg capsule Take 1 capsule by mouth three times daily. / Actual start date 02/12/15 - fenofibrate nanocrystallized (TRICOR) 145 mg tablet Take 145 mg by mouth once daily. - bimatoprost (LUMIGAN) 0.01 % drop ophthalmic drops Use 1 Drop in both eyes daily at bedtime. - cholecalciferol, Vitamin D3, 50,000 unit cap capsule Take 50,000 Units by mouth every 2 weeks. Problem List As Of Date 04/14/2023 Noted Resolved Lumbar canal stenosis [M48.061] 07/30/2011 Hypertension [I10] Diabetes (HCC) [E11.9] Hypercholesteremia [E78.00] Arthritis [M19.90] GERD (gastroesophageal reflux disease) [K21.9] Hypothyroidism [E03.9] Encounter for follow-up surveillance of urothel*11/03/2020 Stage 3b chronic kidney disease (HCC) [N18.32] 03/08/2021 Anemia [D64.9] 03/08/2021 Neoplasm of bladder [D49.4] 03/12/2021 Acute on chronic diastolic congestive heart aide*11/23/2021 Encounter Status:Closed by ABIEL SMITH on 04/14/23 Normal [facility] CREATININE BLDon 04-11-2023 Creatinine [Mass/Vol] 2.35 mg/dL High 0.58-0.96 [facility] Comment on above: Order Comment: Speci men Type: BLOOD SPECIMENOrdering Facility: [facility] Address: [address] [place] [address] Performed By: #### C RET1 ####[facility] [id number] [place] [address] [place] Creatinine and Glomerular filtration rate.predicted panel (S/P/Bld) 20 mL/min/1.73m??? Low >=60 [facility] Comment on above: Order Comment: Speci men Type: BLOOD SPECIMENOrdering Facility: [facility] Address: [place] [address] Result Comment: Isabelle mated Glomerular Filtration Rate (eGFR) is calculated using the 2020 CKD-EPI creatinine equation. This equation utilizes serum creatinine, sex, and age as parameters. The creatinine assay has traceable calibration to isotope dilution-mass spectrometry. Refer to KDIGO guidelines for clinical interpretation. In patients with unstable renal function, e.g. those with acute kidney injury, the eGFR may not accurately reflect actual GFR. Performed By: #### C RET1 ####[facility] [id number] [place] [id number] [place] [address] OF [place] CNOVon 04-03-2023 CNOV Office Visit (UROSMN ) -------- LAVINIA DURAND ([id number]) 1940 F Date Time Provider Department 04/03/23 1:00 PM YOVANI PEOPLES During your visit today, we recorded the following information about you: Elliot Webster Ma 04/03/2023 2:01 PM Signed Actual procedure/procedure scheduled: Yes Performing provider/scheduled provider: Yes Patient was roomed in: Q9- 08 Imaging Assistant offered:Patient declines Patient arrived in the room at: 1245 Patient ready for procedure: 1300 The procedure started at ( Time Only): 1338 The procedure ended at: 1345 Was the procedure delayed: Yes: Provider late: Provider off unit The patient left the procedure room at: 1355 Elliot Webster Ma PRE PROCEDURE ASSESSMENT- Cysto Procedure Indication: Cystoscopy Latex Allergy: No Allergies reviewed and updated. Yes Heart valve replacement: No Joint replacement: Yes, years ago Back Office UA otained: yes PROCEDURE PREP-Cysto Patient ID with two(2)identifiers verified by: Elliot Webster Ma Pre-Procedure Antibiotics: None taken at home nor prior to procedure Patient Prep: Betadine Scrub to perineum and placement of Sterile Drape. COMPLETED Anesthetic Given:10 cc 2% Lidocaine jelly Elliot Webster Ma UNIVERSAL PROTOCOL / SAFETY CHECKLIST Procedure to be performed: Cystoscopy Sign in Communication: Completed Time Out: Team Confirms the Correct Patient, Correct Procedure, Correct Site and Site Marking, Correct Position (if applicable). Sign Out Discussion: Completed Elliot Webster Ma POST PROCEDURE NURSE ASSESSMENT Present along with physician during procedure exam. Elliot Webster Ma Instruction sheet given and reviewed and patient verbalizes understanding: yes Post Procedure Antibiotic: none Current pain intensity is 0 on a 0-10 pain scale. Elliot Webster Ma AMBULATORY PATIENT EDUCATION THE FOLLOWING WAS EVALUATED Motivation To Learn: Interested Family/Significant Other Support: Unable to assess - Family not present Cognitive Ability: Alert/Oriented Method of Instruction: Individual instruction Written instruction - handouts The Following Influencing Factors Were Barriers To This Education Session: None The Following Physical Limitations Were Barriers To This Education Session: None Instruction Provided To: Patient Product Manager Financial Services Present: not applicable Discipline: Nursing Learning Topic: SURVIVAL SKILLS: Symptom Management Patient Evaluation: Verbalizes understanding: Yes Supplemental Material Given: Written Material Instructed By Elliot Webster Ma In Department Urology . Yovani Peoples MD 05/06/2023 11:29 AM Signed CYSTOSCOPY NOTE HPI: 82 y/o F with history of TaHG UTUC s/p Robotic RIGHT Nephroureterectomy in 10/2020 and T1HG Bladder Recurrence 03/12/2021 s/p induction BCG. TaHG Bladder Recurrence 11/26/2021. Last cytology 03/07/2022 negative for HG UC. Patient has been experiencing gross hematuria. She presents today for cystoscopy. Procedure: The risks, benefits and alternative of cystoscopy were explained to and understood by the patient who consented to the procedure. The patient understands that there is a risk of bleeding, infection, and damage to the bladder and urethra. The patient's questions were answered and the patient signed informed consent. The patient was placed on the procedure table in the supine position and prepped and draped in the usual sterile fashion. 2% Lidocaine Jelly was placed per urethra as an anesthetic in the standard fashion. Once adequate local anesthesia was achieved, the tip of the flexible cystoscope was carefully placed into the urethra under direct visual guidance. The bladder was entered and careful taylor endoscopy was carried out. The posterior, superior and lateral ellis and dome of the bladder were all well visualized and the scope was retroflexed upon itself. At the conclusion of the procedure, the flexible cystoscope was removed atraumatically. The patient tolerated the procedure without complications. Findings as below: URETHRA: Meatus [] Normal [] Abnormal Urethra [] Normal [] Abnormal BLADDER NECK: [] Open, Normal [] Contracture [] Other -see below WITHIN THE BLADDER THERE WERE: (check all that apply) [] The patient's bladder was normal and without abnormality [x] Tumors [] Bladder stones [] Diverticuli [] Trabeculations [] Inflammation [] Erythema [] Other - see below BILATERAL Ureteral orifices were normal in position and appearance. URINE POC GLUCOSE UA (POCT) 100 04/03/2023 BILIRUBIN UA (POCT) Negative 04/03/2023 KETONE UA (POCT) Negative 04/03/2023 SPECIFIC GRAVITY UA (POCT) 1.020 04/03/2023 HEMOGLOBIN/BLOOD UA (POCT) Large 04/03/2023 PH UA (POCT) 8.5 04/03/2023 PROTEIN UA (POCT) >=300 04/03/2023 UROBILINOGEN UA (POCT) 0.2 04/03/2023 NITRITE UA (POCT) Negative 04/03/2023 LEUKOCYTES UA (POCT) Negative 04/03/2023 COLOR UA (POCT) Br (more content not included)... Normal [facility] No Panel InformationOrdered By: Lisette Cason on 11-20-2022 Hepatitis B Surface Antigen Non-Reactive Nonreactive [facility] Serum hepatitis B virus core antibody detectionOrdered By: Lisette Cason on 11-20-2022 HBV core Ab Ql (S) Negative Negative [facility] Comment on above: Performed at: [address] [id number] Director: Enrique Carroll PhD, Phone: [phone] Serum hepatitis B virus surf florentino antibody IgG detectionOrdered By: Lisette Cason on 11-20-2022 HBV surface IgG Ql (S) Non-Reactive [facility] Comment on above: Non Reactive: Incons istent with immunity less than <10 mIU/mL Reactive: Consistent with immunity greater than or equal to 10 mIU/mL Basophil percentageOrdered B y: Lisette Cason on 11-19-2022 Chloride [Moles/Vol] 105 mmol/L 98-107 [facility] Glucose [Mass/Vol] 116 mg/dL 74-106 [facility] Comment on above: Fasting Glucose resu lt from 100 to 125 mg/dL suggests IMPAIRED HOMEOSTASIS per A.D.A. criteria. Potassium [Moles/Vol] 4.3 mmol/L 3.5-5.1 [facility] Sodium [Moles/Vol] 134 mmol/L 136-145 [facility] Laboratory - Chemistry and C hemistry - challengeOrdered By: Lisette Cason on 11-19-2022 CO2 [Moles/Vol] 21.0 mmol/L 21.0-32.0 [facility] Urea nitrogen/Creatinine [Mass ratio] 11.0 mg/mg 10-20 [facility] No Panel InformationOrdered By: Lisette Cason on 11-19-2022 Estimated GFR (MDRD) Amer 9 mL/min >60 [facility] Comment on above: GFR Calc Estimated GFR (MDRD) Non-Af Amer 7 mL/min >60 [facility] Comment on above: Non- GFR Calc Serum or plasma calcium sandra urement (mass/volume)Ordered By: Lisette Cason on 11-19-2022 Calcium [Mass/Vol] 8.7 mg/dL 8.5-10.1 [facility] Serum or plasma creatinine m easurement (mass/volume)Ordered By: Lisette Cason on 11-19-2022 Creatinine [Mass/Vol] 5.90 mg/dL 0.55-1.02 [facility] Comment on above: The validity of the calculated GFR & GFRAA in patients over 70 years has not been determined. Clinical correlation is essential. Serum or plasma urea nitroge n measurement (mass/volume)Ordered By: Lisette Cason on 11-19-2022 Urea nitrogen [Mass/Vol] 65 mg/dL 7-18 [facility] Thin prep Papanicolaou smear with manual screeningOrdered By: [facility] Lu[facility] on 11-19-2022 Thin prep Papanicolaou smear with manual screening 8 5-15 [facility] Iron measurement (mass/mass) Ordered By: Lisette Luoarnold on 11-11-2022 Iron (Unsp spec) [Mass/Mass] 36 ug/dL 50-170 [facility] No Panel InformationOrdered By: [facility] on 11-11-2022 Total Iron Binding Capacity 177 ug/dL 250-450 [facility] Serum or plasma ferritin ivan surement (mass/volume)Ordered By: [facility] Valerioarnold on 11-11-2022 Ferritin [Mass/Vol] 598 ng/mL 8-252 [facility] Serum or plasma iron saturat ion measurement (mass fraction)Ordered By: hanna Luoarnold on 11-11-2022 Iron saturation [Mass fraction] 20.3 % 15.0-55.0 [facility] Absolute lymphocyte countOrd ered By: Chacorta Neal on 11-05-2022 Lymphocytes Auto (Unsp spec) [#/Vol] 1.09 10*3/uL 0.83-4.51 [facility] Basophil percentageOrdered B y: Chacorta Neal on 11-05-2022 Basophils/100 WBC (Bld) 0.3 % 0-[address] [facility] Chloride [Moles/Vol] 109 mmol/L 98-107 [facility] Cholesterol [Mass/Vol] 180 mg/dL <200 [facility] Comment on above: <200 mg/dL Desirable 200-240 mg/dL Borderline >240 mg/dL High Risk Eosinophils/100 WBC (Bld) 6.5 % 0-5 [facility] Glucose [Mass/Vol] 66 mg/dL 74-106 [facility] Neutrophils (Bld) [#/Vol] 5.0 10*3/uL 2.0-7.7 [facility] Neutrophils/100 WBC (Bld) 70.6 % 47-70 [facility] Potassium [Moles/Vol] 4.6 mmol/L 3.5-5.1 [facility] Sodium [Moles/Vol] 137 mmol/L 136-145 [facility] Triglyceride [Mass/Vol] 179 mg/dL <[address] [facility] Comment on above: The drugs N-Acetylcy steine and Metamizole may falsely depress this assay.Serum Triglycerides Reference Interval Normal <150 mg/dL Borderline high 150 - 199 mg/dL High 200 - 499 mg/dL Very High > or = 500 mg/dL WBC (Bld) [#/Vol] 7.1 10*3/uL 4.4-11.0 [facility] Blood erythrocytes count (nu mber/volume)Ordered By: Chacorta Neal on 11-05-2022 RBC (Bld) [#/Vol] 2.89 10*6/uL 4.2-5.4 [facility] Blood hemoglobin measurement (mass/volume)Ordered By: Chacorta Neal on 11-05-2022 Hemoglobin (Bld) [Mass/Vol] 8.8 g/dL 12.0-15.0 [facility] Blood lymphocytes/100 leukoc ytesOrdered By: Chacorta Neal on 11-05-2022 Lymphocytes/100 WBC (Bld) 15.3 % 19-41 [facility] Blood monocytes/100 leukocyt esOrdered By: Chacorta Neal on 11-05-2022 Monocytes/100 WBC (Bld) 6.5 % 0-[address] [facility] Blood platelet mean volumeOr dered By: Chacorta Neal on 11-05-2022 Platelet mean volume (Bld) [Entitic vol] 10.5 fL 6.2-12.0 [facility] Determination of erythrocyte mean corpuscular volume (MCV)Ordered By: Chacorta Neal on 11-05-2022 MCV (RBC) [Entitic vol] 102.4 fL 81-[address] [facility] Comment on above: Delta: 97.2 on 10/31-1121 Hematocrit Auto (Bld) [Volum e fraction]Ordered By: Chacorta Neal on 11-05-2022 Hematocrit (Bld) [Volume fraction] 29.6 % 37-47 [facility] Laboratory - Chemistry and C hemistry - challengeOrdered By: Chacorta Neal on 11-05-2022 ALT [Catalytic activity/Vol] 11 U/L 13-56 [facility] CO2 [Moles/Vol] 19.0 mmol/L 21.0-32.0 [facility] Free T4 [Mass/Vol] 1.01 ng/dL 0.76-1.46 [facility] Urea nitrogen/Creatinine [Mass ratio] 11.2 mg/mg 10-20 [facility] Laboratory - Hematology and Cell countsOrdered By: Chacorta Neal on 11-05-2022 Erythrocyte distribution width (RBC) [Entitic vol] 61.0 fL 35.1-43.9 [facility] Erythrocyte distribution width (RBC) [Ratio] 16.3 % 11.6-14.6 [facility] Immature granulocytes/100 WBC (Bld) 0.800 % 0.0-0.9 [facility] Comment on above: IG% - Immature Granu locytes (promyelocytes, myelocytes and metamyelocytes) > 1% indicates that a LEFT SHIFT is Present. MCH (RBC) [Entitic mass] 30.4 pg 27.0-32.0 [facility] Nucleated RBC/100 WBC (Bld) [Ratio] 0 % 0-5 [facility] MCHC Auto (RBC) [Mass/Vol]Or dered By: Chacorta Neal on 11-05-2022 MCHC (RBC) [Mass/Vol] 29.7 g/dL 32-36 [facility] Comment on above: Delta: 31.9 on 10/31 No Panel InformationOrdered By: Chacorta Neal on 11-05-2022 Estimated GFR (MDRD) Amer 10 mL/min >60 [facility] Comment on above: GFR Calc Estimated GFR (MDRD) Non-Af Amer 8 mL/min >60 [facility] Comment on above: Non- GFR Calc Thyroid Stimulating Hormone (TSH) 5.50 uIU/mL 0.358-3.74 [facility] Platelets bldOrdered By: Anabela Neal on 11-05-2022 Platelets (Bld) [#/Vol] 184 10*3/uL 150-450 [facility] Serum or plasma calcium sandra urement (mass/volume)Ordered By: Chacorta Neal on 11-05-2022 Calcium [Mass/Vol] 8.9 mg/dL 8.5-10.1 [facility] Serum or plasma cholesterol in HDL measurement (mass/volume)Ordered By: Chacorta Neal on 11-05-2022 Cholesterol in HDL [Mass/Vol] 65 mg/dL >40 [facility] Comment on above: The drugs N-Acetylcy steine and Metamizole may falsely depress this assay. Reference Range HDL <40 mg/dL Low HDL Cholesterol HDL >or= 60 mg/dL High HDL Cholesterol Serum or plasma cholesterol in VLDL measurement (mass/volume)Ordered By: Chacorta Neal on 11-05-2022 Cholesterol in VLDL [Mass/Vol] 36 mg/dL 5-40 [facility] Serum or plasma creatinine m easurement (mass/volume)Ordered By: Chacorta Neal on 11-05-2022 Creatinine [Mass/Vol] 5.37 mg/dL 0.55-1.02 [facility] Comment on above: The validity of the calculated GFR & GFRAA in patients over 70 years has not been determined. Clinical correlation is essential. Serum or plasma low density lipoprotein (LDL) cholesterol measurement (mass/volume)Ordered By: Chacorta Neal on 11-05-2022 Cholesterol in LDL [Mass/Vol] 79 mg/dL 0-130 [facility] Serum or plasma urea nitroge n measurement (mass/volume)Ordered By: Chacorta Neal on 11-05-2022 Urea nitrogen [Mass/Vol] 60 mg/dL 7-18 [facility] Thin prep Papanicolaou smear with manual screeningOrdered By: Chacorta Neal on 11-05-2022 Thin prep Papanicolaou smear with manual screening 14 U/L 15-37 [facility] Thin prep Papanicolaou smear with manual screening 9 5-15 [facility] Whole blood hemoglobin A1c/t otal hemoglobin ratio (mass fraction)Ordered By: Chacorta Neal on 11-05-2022 HbA1c (Bld) [Mass fraction] % 3.8-5.6 [facility] Comment on above: Normal < 5.7 % Predi abetic 5.7 - 6.4 % Diabetic >or= 6.5 % Please note range changes. Absolute lymphocyte countOrd ered By: Lisette Cason on 10-31-2022 Lymphocytes Auto (Unsp spec) [#/Vol] 1.14 10*3/uL 0.83-4.51 [facility] Basophil percentageOrdered B y: Lisette Goodensing on 10-31-2022 Basophils/100 WBC (Bld) 0.3 % 0-[address] [facility] Chloride [Moles/Vol] 106 mmol/L 98-107 [facility] Eosinophils/100 WBC (Bld) 6.1 % 0-5 [facility] Glucose [Mass/Vol] 89 mg/dL 74-106 [facility] Neutrophils (Bld) [#/Vol] 3.8 10*3/uL 2.0-7.7 [facility] Neutrophils/100 WBC (Bld) 66.2 % 47-70 [facility] Potassium [Moles/Vol] 4.4 mmol/L 3.5-5.1 [facility] Sodium [Moles/Vol] 135 mmol/L 136-145 [facility] WBC (Bld) [#/Vol] 5.8 10*3/uL 4.4-11.0 [facility] Blood erythrocytes count (nu mber/volume)Ordered By: Lisette Cason on 10-31-2022 RBC (Bld) [#/Vol] 2.90 10*6/uL 4.2-5.4 [facility] Blood hemoglobin measurement (mass/volume)Ordered By: Lisette Cason on 10-31-2022 Hemoglobin (Bld) [Mass/Vol] 9.0 g/dL 12.0-15.0 [facility] Blood lymphocytes/100 leukoc ytesOrdered By: Lisette Luoreillysing on 10-31-2022 Lymphocytes/100 WBC (Bld) 19.8 % 19-41 [facility] Blood monocytes/100 leukocyt esOrdered By: Lisette Luowarsing on 10-31-2022 Monocytes/100 WBC (Bld) 7.1 % 0-[address] [facility] Blood platelet mean volumeOr dered By: Lisette Zepedawarsing on 10-31-2022 Platelet mean volume (Bld) [Entitic vol] 10.2 fL 6.2-12.0 [facility] Determination of erythrocyte mean corpuscular volume (MCV)Ordered By: hanna Zepedawarsinkenna on 10-31-2022 MCV (RBC) [Entitic vol] 97.2 fL 81-[address] [facility] Hematocrit Auto (Bld) [Volum e fraction]Ordered By: [facility] on 10-31-2022 Hematocrit (Bld) [Volume fraction] 28.2 % 37-47 [facility] Laboratory - Chemistry and C hemistry - challengeOrdered By: [facility] on 10-31-2022 CO2 [Moles/Vol] 21.0 mmol/L 21.0-32.0 [facility] Urea nitrogen/Creatinine [Mass ratio] 10.8 mg/mg 10-20 [facility] Laboratory - Hematology and Cell countsOrdered By: [facility] on 10-31-2022 Erythrocyte distribution width (RBC) [Entitic vol] 59.3 fL 35.1-43.9 [facility] Erythrocyte distribution width (RBC) [Ratio] 16.5 % 11.6-14.6 [facility] Immature granulocytes/100 WBC (Bld) 0.500 % 0.0-0.9 [facility] Comment on above: IG% - Immature Granu locytes (promyelocytes, myelocytes and metamyelocytes) > 1% indicates that a LEFT SHIFT is Present. MCH (RBC) [Entitic mass] 31.0 pg 27.0-32.0 [facility] Nucleated RBC/100 WBC (Bld) [Ratio] 0 % 0-5 [facility] MCHC Auto (RBC) [Mass/Vol]Or dered By: [facility] on 10-31-2022 MCHC (RBC) [Mass/Vol] 31.9 g/dL 32-36 [facility] No Panel InformationOrdered By: [facility] on 10-31-2022 Estimated GFR (MDRD) Amer 10 mL/min >60 [facility] Comment on above: GFR Calc Estimated GFR (MDRD) Non-Af Amer 8 mL/min >60 [facility] Comment on above: Non- GFR Calc Parathyroid Hormone (Intact) 183.2 pg/mL 18.4-80.1 [facility] Platelets bldOrdered By: Lyle Cason on 10-31-2022 Platelets (Bld) [#/Vol] 178 10*3/uL 150-450 [facility] Serum or plasma calcitriol m easurement (mass/volume)Ordered By: Lisette Cason on 10-31-2022 1,25-dihydroxyvitamin D3 [Mass/Vol] 7.5 pg/mL 24.8-81.5 [facility] Comment on above: Performed at: [address] [id number] Director: Amrit Hatch MD, Phone: [phone] Serum or plasma calcium sandra urement (mass/volume)Ordered By: Lisette Cason on 10-31-2022 Calcium [Mass/Vol] 9.1 mg/dL 8.5-10.1 [facility] Serum or plasma creatinine m easurement (mass/volume)Ordered By: Lisette Cason on 10-31-2022 Creatinine [Mass/Vol] 5.37 mg/dL 0.55-1.02 [facility] Comment on above: The validity of the calculated GFR & GFRAA in patients over 70 years has not been determined. Clinical correlation is essential. Serum or plasma urea nitroge n measurement (mass/volume)Ordered By: Lisette Cason on 10-31-2022 Urea nitrogen [Mass/Vol] 58 mg/dL 7-18 [facility] Serum or plasma uric acid me asurement (mass/volume)Ordered By: Lisette Cason on 10-31-2022 Urate [Mass/Vol] 6.7 mg/dL 2.6-6.0 [facility] Comment on above: The drugs N-Acetylcy steine and Metamizole may falsely depress this assay. Thin prep Papanicolaou smear with manual screeningOrdered By: Lisette Cason on 10-31-2022 Thin prep Papanicolaou smear with manual screening 8 5-15 [facility] Urine creatinine measurement (mass/volume)Ordered By: Lisette Cason on 10-31-2022 Creatinine (U) [Mass/Vol] 54.60 mg/dL NO RANGE EST. [facility] Urine protein measurement (m ass/volume)Ordered By: Lisette Luoarnold on 10-31-2022 Protein (U) [Mass/Vol] 614.8 mg/dL 0.0-11.[address] [facility] Urine protein/creatinine mas s ratioOrdered By: [facility] on 10-31-2022 Protein/Creatinine (U) [Mass ratio] 19529 mg/g CRE 0-200 [facility] Absolute lymphocyte countOrd ered By: Dr. Mcknight on 10-16-2022 Lymphocytes Auto (Unsp spec) [#/Vol] 1.29 10*3/uL 0.83-4.51 [facility] Basophil percentageOrdered B y: Dr. Mcknight on 10-16-2022 Basophil percentage 4.4 mg/dL 2.5-4.9 [facility] Basophils/100 WBC (Bld) 0.4 % 0-[address] [facility] Chloride [Moles/Vol] 109 mmol/L 98-107 [facility] Eosinophils/100 WBC (Bld) 5.8 % 0-5 [facility] Glucose [Mass/Vol] 96 mg/dL 74-106 [facility] Neutrophils (Bld) [#/Vol] 4.8 10*3/uL 2.0-7.7 [facility] Neutrophils/100 WBC (Bld) 66.8 % 47-70 [facility] Potassium [Moles/Vol] 4.6 mmol/L 3.5-5.1 [facility] Sodium [Moles/Vol] 137 mmol/L 136-145 [facility] WBC (Bld) [#/Vol] 7.2 10*3/uL 4.4-11.0 [facility] Blood erythrocytes count (nu mber/volume)Ordered By: Dr. Mcknight on 10-16-2022 RBC (Bld) [#/Vol] 2.81 10*6/uL 4.2-5.4 [facility] Blood hemoglobin measurement (mass/volume)Ordered By: Dr. Mcknight on 10-16-2022 Hemoglobin (Bld) [Mass/Vol] 8.3 g/dL 12.0-15.0 [facility] Blood lymphocytes/100 leukoc ytesOrdered By: Dr. Mcknight on 10-16-2022 Lymphocytes/100 WBC (Bld) 17.9 % 19-41 [facility] Blood monocytes/100 leukocyt esOrdered By: Dr. Mcknight on 10-16-2022 Monocytes/100 WBC (Bld) 7.9 % 0-[address] [facility] Blood platelet mean volumeOr dered By: Dr. Mcknight on 10-16-2022 Platelet mean volume (Bld) [Entitic vol] 10.6 fL 6.2-12.0 [facility] Determination of erythrocyte mean corpuscular volume (MCV)Ordered By: Dr. Mcknight on 10-16-2022 MCV (RBC) [Entitic vol] 96.4 fL 81-[address] [facility] Hematocrit Auto (Bld) [Volum e fraction]Ordered By: Dr. Mcknight on 10-16-2022 Hematocrit (Bld) [Volume fraction] 27.1 % 37-47 [facility] Iron measurement (mass/mass) Ordered By: Dr. Mcknight on 10-16-2022 Iron (Unsp spec) [Mass/Mass] 64 ug/dL 50-170 [facility] Laboratory - Chemistry and C hemistry - challengeOrdered By: Dr. Mcknight on 10-16-2022 CO2 [Moles/Vol] 22.0 mmol/L 21.0-32.0 [facility] Urea nitrogen/Creatinine [Mass ratio] 13.6 mg/mg 10-20 [facility] Laboratory - Hematology and Cell countsOrdered By: Dr. Mcknight on 10-16-2022 Erythrocyte distribution width (RBC) [Entitic vol] 51.7 fL 35.1-43.9 [facility] Erythrocyte distribution width (RBC) [Ratio] 14.7 % 11.6-14.6 [facility] Immature granulocytes/100 WBC (Bld) 1.200 % 0.0-0.9 [facility] Comment on above: IG% - Immature Granu locytes (promyelocytes, myelocytes and metamyelocytes) > 1% indicates that a LEFT SHIFT is Present. MCH (RBC) [Entitic mass] 29.5 pg 27.0-32.0 [facility] Nucleated RBC/100 WBC (Bld) [Ratio] 0 % 0-5 [facility] MCHC Auto (RBC) [Mass/Vol]Or dered By: Dr. Mcknight on 10-16-2022 MCHC (RBC) [Mass/Vol] 30.6 g/dL 32-36 [facility] No Panel InformationOrdered By: Dr. Mcknight on 10-16-2022 Estimated GFR (MDRD) Amer 12 mL/min >60 [facility] Comment on above: GFR Calc Estimated GFR (MDRD) Non-Af Amer 10 mL/min >60 [facility] Comment on above: Non- GFR Calc Total Iron Binding Capacity 194 ug/dL 250-450 [facility] Platelets bldOrdered By: Dr. Mcknight on 10-16-2022 Platelets (Bld) [#/Vol] 169 10*3/uL 150-450 [facility] Serum or plasma albumin sandra urement (mass/volume)Ordered By: Dr. Mcknight on 10-16-2022 Albumin [Mass/Vol] 2.4 g/dL 3.2-5.0 [facility] Serum or plasma calcium sandra urement (mass/volume)Ordered By: Dr. Mcknight on 10-16-2022 Calcium [Mass/Vol] 8.7 mg/dL 8.5-10.1 [facility] Serum or plasma creatinine m easurement (mass/volume)Ordered By: Dr. Mcknight on 10-16-2022 Creatinine [Mass/Vol] 4.57 mg/dL 0.55-1.02 [facility] Comment on above: The validity of the calculated GFR & GFRAA in patients over 70 years has not been determined. Clinical correlation is essential. Serum or plasma ferritin ivan surement (mass/volume)Ordered By: Dr. Mcknight on 10-16-2022 Ferritin [Mass/Vol] 902 ng/mL 8-252 [facility] Serum or plasma iron saturat ion measurement (mass fraction)Ordered By: Dr. Mcknight on 10-16-2022 Iron saturation [Mass fraction] 33.0 % 15.0-55.0 [facility] Serum or plasma urea nitroge n measurement (mass/volume)Ordered By: Dr. Mcknight on 10-16-2022 Urea nitrogen [Mass/Vol] 62 mg/dL 7-18 [facility] Glucose Glucometer (BldC) [M ass/Vol]Ordered By: Dr. Titus on 10-10-2022 Glucose [Mass/Vol] 94 mg/dL 74-106 [facility] [facility] Comment on above: MANAGEMENT OF PATIEN T CARE PER NURSING PROTOCOL Basophil percentageOrdered B y: Dr. Titus on 10-07-2022 Chloride [Moles/Vol] 109 mmol/L 98-107 [facility] Glucose [Mass/Vol] 100 mg/dL 74-106 [facility] Comment on above: Fasting Glucose resu lt from 100 to 125 mg/dL suggests IMPAIRED HOMEOSTASIS per A.D.A. criteria. Potassium [Moles/Vol] 4.9 mmol/L 3.5-5.1 [facility] Sodium [Moles/Vol] 137 mmol/L 136-145 [facility] WBC (Bld) [#/Vol] 6.0 10*3/uL 4.4-11.0 [facility] Blood erythrocytes count (nu mber/volume)Ordered By: Dr. Titus on 10-07-2022 RBC (Bld) [#/Vol] 2.99 10*6/uL 4.2-5.4 [facility] Blood hemoglobin measurement (mass/volume)Ordered By: Dr. Titus on 10-07-2022 Hemoglobin (Bld) [Mass/Vol] 8.8 g/dL 12.0-15.0 [facility] Blood platelet mean volumeOr dered By: Dr. Titus on 10-07-2022 Platelet mean volume (Bld) [Entitic vol] 11.1 fL 6.2-12.0 [facility] Determination of erythrocyte mean corpuscular volume (MCV)Ordered By: Dr. Titus on 10-07-2022 MCV (RBC) [Entitic vol] 96.0 fL 81-[address] [facility] Hematocrit Auto (Bld) [Volum e fraction]Ordered By: Dr. Titus on 10-07-2022 Hematocrit (Bld) [Volume fraction] 28.7 % 37-47 [facility] Laboratory - Chemistry and C hemistry - challengeOrdered By: Dr. Titus on 10-07-2022 CO2 [Moles/Vol] 19.0 mmol/L 21.0-32.0 [facility] Urea nitrogen/Creatinine [Mass ratio] 15.3 mg/mg 10-20 [facility] Laboratory - Hematology and Cell countsOrdered By: Dr. Titus on 10-07-2022 Erythrocyte distribution width (RBC) [Entitic vol] 52.9 fL 35.1-43.9 [facility] Erythrocyte distribution width (RBC) [Ratio] 15.1 % 11.6-14.6 [facility] MCH (RBC) [Entitic mass] 29.4 pg 27.0-32.0 [facility] MCHC Auto (RBC) [Mass/Vol]Or dered By: Dr. Titus on 10-07-2022 MCHC (RBC) [Mass/Vol] 30.7 g/dL 32-36 [facility] No Panel InformationOrdered By: Dr. Titus on 10-07-2022 Estimated GFR (MDRD) Amer 12 mL/min >60 [facility] Comment on above: GFR Calc Estimated GFR (MDRD) Non-Af Amer 10 mL/min >60 [facility] Comment on above: Non- GFR Calc Platelets bldOrdered By: Dr. Titus on 10-07-2022 Platelets (Bld) [#/Vol] 148 10*3/uL 150-450 [facility] Serum or plasma calcium sandra urement (mass/volume)Ordered By: Dr. Titus on 10-07-2022 Calcium [Mass/Vol] 8.9 mg/dL 8.5-10.1 [facility] Serum or plasma creatinine m easurement (mass/volume)Ordered By: Dr. Titus on 10-07-2022 Creatinine [Mass/Vol] 4.63 mg/dL 0.55-1.02 [facility] Comment on above: The validity of the calculated GFR & GFRAA in patients over 70 years has not been determined. Clinical correlation is essential. Serum or plasma urea nitroge n measurement (mass/volume)Ordered By: Dr. Titus on 10-07-2022 Urea nitrogen [Mass/Vol] 71 mg/dL 7-18 [facility] Thin prep Papanicolaou smear with manual screeningOrdered By: Dr. Titus on 10-07-2022 Thin prep Papanicolaou smear with manual screening 9 5-15 [facility] Absolute lymphocyte countOrd ered By: Dr. Mcknight on 09-18-2022 Lymphocytes Auto (Unsp spec) [#/Vol] 1.43 10*3/uL 0.83-4.51 [facility] Basophil percentageOrdered B y: Dr. Mcknight on 09-18-2022 Basophil percentage 5.8 mg/dL 2.5-4.9 [facility] Basophils/100 WBC (Bld) 0.4 % 0-[address] [facility] Chloride [Moles/Vol] 109 mmol/L 98-107 [facility] Eosinophils/100 WBC (Bld) 3.4 % 0-5 [facility] Glucose [Mass/Vol] 98 mg/dL 74-106 [facility] Neutrophils (Bld) [#/Vol] 4.9 10*3/uL 2.0-7.7 [facility] Neutrophils/100 WBC (Bld) 69.1 % 47-70 [facility] Potassium [Moles/Vol] 4.4 mmol/L 3.5-5.1 [facility] Sodium [Moles/Vol] 137 mmol/L 136-145 [facility] WBC (Bld) [#/Vol] 7.1 10*3/uL 4.4-11.0 [facility] Blood erythrocytes count (nu mber/volume)Ordered By: Dr. Mcknight on 09-18-2022 RBC (Bld) [#/Vol] 3.20 10*6/uL 4.2-5.4 [facility] Blood hemoglobin measurement (mass/volume)Ordered By: Dr. Mcknight on 09-18-2022 Hemoglobin (Bld) [Mass/Vol] 9.5 g/dL 12.0-15.0 [facility] Blood lymphocytes/100 leukoc ytesOrdered By: Dr. Mcknight on 09-18-2022 Lymphocytes/100 WBC (Bld) 20.2 % 19-41 [facility] Blood monocytes/100 leukocyt esOrdered By: Dr. Mcknight on 09-18-2022 Monocytes/100 WBC (Bld) 6.5 % 0-[address] [facility] Blood platelet mean volumeOr dered By: Dr. Mcknight on 09-18-2022 Platelet mean volume (Bld) [Entitic vol] 11.1 fL 6.2-12.0 [facility] Determination of erythrocyte mean corpuscular volume (MCV)Ordered By: Dr. Mcknight on 09-18-2022 MCV (RBC) [Entitic vol] 94.1 fL 81-[address] [facility] Hematocrit Auto (Bld) [Volum e fraction]Ordered By: Dr. Mcknight on 09-18-2022 Hematocrit (Bld) [Volume fraction] 30.1 % 37-47 [facility] Iron measurement (mass/mass) Ordered By: Dr. Mcknight on 09-18-2022 Iron (Unsp spec) [Mass/Mass] 90 ug/dL 50-170 [facility] Laboratory - Chemistry and C hemistry - challengeOrdered By: Dr. Mcknight on 09-18-2022 CO2 [Moles/Vol] 21.0 mmol/L 21.0-32.0 [facility] Urea nitrogen/Creatinine [Mass ratio] 15.0 mg/mg 10-20 [facility] Laboratory - Hematology and Cell countsOrdered By: Dr. Mcknight on 09-18-2022 Erythrocyte distribution width (RBC) [Entitic vol] 48.8 fL 35.1-43.9 [facility] Erythrocyte distribution width (RBC) [Ratio] 14.3 % 11.6-14.6 [facility] Immature granulocytes/100 WBC (Bld) 0.400 % 0.0-0.9 [facility] Comment on above: IG% - Immature Granu locytes (promyelocytes, myelocytes and metamyelocytes) > 1% indicates that a LEFT SHIFT is Present. MCH (RBC) [Entitic mass] 29.7 pg 27.0-32.0 [facility] Nucleated RBC/100 WBC (Bld) [Ratio] 0 % 0-5 [facility] MCHC Auto (RBC) [Mass/Vol]Or dered By: Dr. Mcknight on 09-18-2022 MCHC (RBC) [Mass/Vol] 31.6 g/dL 32-36 [facility] No Panel InformationOrdered By: Dr. Mcknight on 09-18-2022 Estimated GFR (MDRD) Amer 12 mL/min >60 [facility] Comment on above: GFR Calc Estimated GFR (MDRD) Non-Af Amer 10 mL/min >60 [facility] Comment on above: Non- GFR Calc Parathyroid Hormone (Intact) 144.0 pg/mL 18.4-80.1 [facility] Total Iron Binding Capacity 210 ug/dL 250-450 [facility] Platelets bldOrdered By: Dr. Mcknight on 09-18-2022 Platelets (Bld) [#/Vol] 140 10*3/uL 150-450 [facility] Serum or plasma albumin sandra urement (mass/volume)Ordered By: Dr. Mcknight on 09-18-2022 Albumin [Mass/Vol] 2.6 g/dL 3.2-5.0 [facility] Serum or plasma calcium sandra urement (mass/volume)Ordered By: Dr. Mcknight on 09-18-2022 Calcium [Mass/Vol] 8.8 mg/dL 8.5-10.1 [facility] Serum or plasma creatinine m easurement (mass/volume)Ordered By: Dr. Mcknight on 09-18-2022 Creatinine [Mass/Vol] 4.66 mg/dL 0.55-1.02 [facility] Comment on above: The validity of the calculated GFR & GFRAA in patients over 70 years has not been determined. Clinical correlation is essential. Serum or plasma ferritin ivan surement (mass/volume)Ordered By: Dr. Mcknight on 09-18-2022 Ferritin [Mass/Vol] 837 ng/mL 8-252 [facility] Serum or plasma iron saturat ion measurement (mass fraction)Ordered By: Dr. Mcknight on 09-18-2022 Iron saturation [Mass fraction] 42.9 % 15.0-55.0 [facility] Serum or plasma urea nitroge n measurement (mass/volume)Ordered By: Dr. Mcknight on 09-18-2022 Urea nitrogen [Mass/Vol] 70 mg/dL 7-18 [facility] Glucose Glucometer (BldC) [M ass/Vol]Ordered By: Dr. Titus on 08-22-2022 Glucose [Mass/Vol] 90 mg/dL 74-106 [facility] Comment on above: MANAGEMENT OF PATIEN T CARE PER NURSING PROTOCOL Absolute lymphocyte countOrd ered By: Dr. Mcknight on 08-21-2022 Lymphocytes Auto (Unsp spec) [#/Vol] 1.09 10*3/uL 0.83-4.51 [facility] Basophil percentageOrdered B y: Dr. Mcknight on 08-21-2022 Basophil percentage 6.0 mg/dL 2.5-4.9 [facility] Basophils/100 WBC (Bld) 0.5 % 0-[address] [facility] Chloride [Moles/Vol] 108 mmol/L 98-107 [facility] Eosinophils/100 WBC (Bld) 3.6 % 0-5 [facility] Glucose [Mass/Vol] 111 mg/dL 74-106 [facility] Comment on above: Fasting Glucose resu lt from 100 to 125 mg/dL suggests IMPAIRED HOMEOSTASIS per A.D.A. criteria. Neutrophils (Bld) [#/Vol] 3.7 10*3/uL 2.0-7.7 [facility] Neutrophils/100 WBC (Bld) 66.7 % 47-70 [facility] Potassium [Moles/Vol] 4.5 mmol/L 3.5-5.1 [facility] Sodium [Moles/Vol] 135 mmol/L 136-145 [facility] WBC (Bld) [#/Vol] 5.6 10*3/uL 4.4-11.0 [facility] Blood erythrocytes count (nu mber/volume)Ordered By: Dr. Mcknight on 08-21-2022 RBC (Bld) [#/Vol] 3.59 10*6/uL 4.2-5.4 [facility] Blood hemoglobin measurement (mass/volume)Ordered By: Dr. Mcknight on 08-21-2022 Hemoglobin (Bld) [Mass/Vol] 10.6 g/dL 12.0-15.0 [facility] Blood lymphocytes/100 leukoc ytesOrdered By: Dr. Mcknight on 08-21-2022 Lymphocytes/100 WBC (Bld) 19.5 % 19-41 [facility] Blood monocytes/100 leukocyt esOrdered By: Dr. Mcknight on 08-21-2022 Monocytes/100 WBC (Bld) 7.9 % 0-[address] [facility] Blood platelet mean volumeOr dered By: Dr. Mcknight on 08-21-2022 Platelet mean volume (Bld) [Entitic vol] 10.4 fL 6.2-12.0 [facility] Determination of erythrocyte mean corpuscular volume (MCV)Ordered By: Dr. Mcknight on 08-21-2022 MCV (RBC) [Entitic vol] 95.0 fL 81-[address] [facility] Hematocrit Auto (Bld) [Volum e fraction]Ordered By: Dr. Mcknight on 08-21-2022 Hematocrit (Bld) [Volume fraction] 34.1 % 37-47 [facility] Iron measurement (mass/mass) Ordered By: Dr. Mcknight on 08-21-2022 Iron (Unsp spec) [Mass/Mass] 38 ug/dL 50-170 [facility] Laboratory - Chemistry and C hemistry - challengeOrdered By: Dr. Mcknight on 08-21-2022 CO2 [Moles/Vol] 21.0 mmol/L 21.0-32.0 [facility] Urea nitrogen/Creatinine [Mass ratio] 16.7 mg/mg 10-20 [facility] Laboratory - Hematology and Cell countsOrdered By: Dr. Mcknight on 08-21-2022 Erythrocyte distribution width (RBC) [Entitic vol] 52.9 fL 35.1-43.9 [facility] Erythrocyte distribution width (RBC) [Ratio] 15.5 % 11.6-14.6 [facility] Immature granulocytes/100 WBC (Bld) 1.800 % 0.0-0.9 [facility] Comment on above: IG% - Immature Granu locytes (promyelocytes, myelocytes and metamyelocytes) > 1% indicates that a LEFT SHIFT is Present. MCH (RBC) [Entitic mass] 29.5 pg 27.0-32.0 [facility] Nucleated RBC/100 WBC (Bld) [Ratio] 0 % 0-5 [facility] MCHC Auto (RBC) [Mass/Vol]Or dered By: Dr. Mcknight on 08-21-2022 MCHC (RBC) [Mass/Vol] 31.1 g/dL 32-36 [facility] No Panel InformationOrdered By: Dr. Mcknight on 08-21-2022 Estimated Creatinine Clearance Calc 6.94 ml/min [facility] Estimated GFR (MDRD) Amer 12 mL/min >60 [facility] Comment on above: GFR Calc Estimated GFR (MDRD) Non-Af Amer 10 mL/min >60 [facility] Comment on above: Non- GFR Calc Total Iron Binding Capacity 207 ug/dL 250-450 [facility] Platelets bldOrdered By: Dr. Mcknight on 08-21-2022 Platelets (Bld) [#/Vol] 185 10*3/uL 150-450 [facility] Serum or plasma albumin sandra urement (mass/volume)Ordered By: Dr. Mcknight on 08-21-2022 Albumin [Mass/Vol] 2.6 g/dL 3.2-5.0 [facility] Serum or plasma calcium sandra urement (mass/volume)Ordered By: Dr. Mcknight on 08-21-2022 Calcium [Mass/Vol] 8.8 mg/dL 8.5-10.1 [facility] Serum or plasma creatinine m easurement (mass/volume)Ordered By: Dr. Mcknight on 08-21-2022 Creatinine [Mass/Vol] 4.49 mg/dL 0.55-1.02 [facility] Comment on above: The validity of the calculated GFR & GFRAA in patients over 70 years has not been determined. Clinical correlation is essential. Serum or plasma ferritin ivan surement (mass/volume)Ordered By: Dr. Mcknight on 08-21-2022 Ferritin [Mass/Vol] 606 ng/mL 8-252 [facility] Serum or plasma iron saturat ion measurement (mass fraction)Ordered By: Dr. Mcknight on 08-21-2022 Iron saturation [Mass fraction] 18.4 % 15.0-55.0 [facility] Serum or plasma urea nitroge n measurement (mass/volume)Ordered By: Dr. Mcknight on 08-21-2022 Urea nitrogen [Mass/Vol] 75 mg/dL 7-18 [facility] Absolute lymphocyte countOrd ered By: Dr. Morgan on 08-16-2022 Lymphocytes Auto (Unsp spec) [#/Vol] 1.33 10*3/uL 0.83-4.51 [facility] Basophil percentageOrdered B y: Dr. Morgan on 08-16-2022 Basophils/100 WBC (Bld) 0.6 % 0-[address] [facility] Bilirubin [Mass/Vol] 0.20 mg/dL 0.20-1.00 [facility] Comment on above: For patients on eltr ombopag therapy, use of Dimension [place] TBIL is not recommended. Chloride [Moles/Vol] 108 mmol/L 98-107 [facility] Eosinophils/100 WBC (Bld) 3.1 % 0-5 [facility] Glucose [Mass/Vol] 85 mg/dL 74-106 [facility] Neutrophils (Bld) [#/Vol] 4.3 10*3/uL 2.0-7.7 [facility] Neutrophils/100 WBC (Bld) 66.5 % 47-70 [facility] Potassium [Moles/Vol] 4.6 mmol/L 3.5-5.1 [facility] Protein [Mass/Vol] 6.1 g/dL 6.4-8.2 [facility] Sodium [Moles/Vol] 135 mmol/L 136-145 [facility] WBC (Bld) [#/Vol] 6.5 10*3/uL 4.4-11.0 [facility] Blood erythrocytes count (nu mber/volume)Ordered By: Dr. Morgan on 08-16-2022 RBC (Bld) [#/Vol] 3.69 10*6/uL 4.2-5.4 [facility] Blood hemoglobin measurement (mass/volume)Ordered By: Dr. Morgan on 08-16-2022 Hemoglobin (Bld) [Mass/Vol] 11.0 g/dL 12.0-15.0 [facility] Blood lymphocytes/100 leukoc ytesOrdered By: Dr. Morgan on 08-16-2022 Lymphocytes/100 WBC (Bld) 20.5 % 19-41 [facility] Blood monocytes/100 leukocyt esOrdered By: Dr. Morgan on 08-16-2022 Monocytes/100 WBC (Bld) 7.3 % 0-[address] [facility] Blood platelet mean volumeOr dered By: Dr. Morgan on 08-16-2022 Platelet mean volume (Bld) [Entitic vol] 10.8 fL 6.2-12.0 [facility] Determination of erythrocyte mean corpuscular volume (MCV)Ordered By: Dr. Morgan on 08-16-2022 MCV (RBC) [Entitic vol] 94.9 fL 81-[address] [facility] Hematocrit Auto (Bld) [Volum e fraction]Ordered By: Dr. Morgan on 08-16-2022 Hematocrit (Bld) [Volume fraction] 35.0 % 37-47 [facility] Laboratory - Chemistry and C hemistry - challengeOrdered By: Dr. Morgan on 08-16-2022 ALP [Catalytic activity/Vol] 81 U/L 45-117 [facility] ALT [Catalytic activity/Vol] 18 U/L 13-56 [facility] CO2 [Moles/Vol] 22.0 mmol/L 21.0-32.0 [facility] Globulin (S) [Mass/Vol] 3.4 g/dL 2.2-4.[address] [facility] Urea nitrogen/Creatinine [Mass ratio] 14.7 mg/mg 10-20 [facility] Laboratory - Hematology and Cell countsOrdered By: Dr. Morgan on 08-16-2022 Erythrocyte distribution width (RBC) [Entitic vol] 52.3 fL 35.1-43.9 [facility] Erythrocyte distribution width (RBC) [Ratio] 15.2 % 11.6-14.6 [facility] Immature granulocytes/100 WBC (Bld) 2.000 % 0.0-0.9 [facility] Comment on above: IG% - Immature Granu locytes (promyelocytes, myelocytes and metamyelocytes) > 1% indicates that a LEFT SHIFT is Present. MCH (RBC) [Entitic mass] 29.8 pg 27.0-32.0 [facility] Nucleated RBC/100 WBC (Bld) [Ratio] 0 % 0-5 [facility] MCHC Auto (RBC) [Mass/Vol]Or dered By: Dr. Morgan on 08-16-2022 MCHC (RBC) [Mass/Vol] 31.4 g/dL 32-36 [facility] No Panel InformationOrdered By: Dr. Morgan on 08-16-2022 Estimated GFR (MDRD) Amer 12 mL/min >60 [facility] Comment on above: GFR Calc Estimated GFR (MDRD) Non-Af Amer 10 mL/min >60 [facility] Comment on above: Non- GFR Calc Platelets bldOrdered By: Dr. Morgan on 08-16-2022 Platelets (Bld) [#/Vol] 185 10*3/uL 150-450 [facility] Serum or plasma albumin sandra urement (mass/volume)Ordered By: Dr. Morgan on 08-16-2022 Albumin [Mass/Vol] 2.7 g/dL 3.2-5.0 [facility] Serum or plasma albumin/glob ulin mass ratioOrdered By: Dr. Morgan on 08-16-2022 Albumin/Globulin [Mass ratio] 0.8 {ratio} 0.9-2.4 [facility] Serum or plasma calcitriol m easurement (mass/volume)Ordered By: Dr. Morgan on 08-16-2022 1,25-dihydroxyvitamin D3 [Mass/Vol] 7.1 pg/mL 24.8-81.5 [facility] Comment on above: Performed at: - [address] [id number] Director: Amrit Hatch MD, Phone: [phone] Serum or plasma calcium sandra urement (mass/volume)Ordered By: Dr. Morgan on 08-16-2022 Calcium [Mass/Vol] 9.4 mg/dL 8.5-10.1 [facility] Serum or plasma creatinine m easurement (mass/volume)Ordered By: Dr. Morgan on 08-16-2022 Creatinine [Mass/Vol] 4.57 mg/dL 0.55-1.02 [facility] Comment on above: The validity of the calculated GFR & GFRAA in patients over 70 years has not been determined. Clinical correlation is essential. Serum or plasma urea nitroge n measurement (mass/volume)Ordered By: Dr. Morgan on 08-16-2022 Urea nitrogen [Mass/Vol] 67 mg/dL 7-18 [facility] Serum or plasma uric acid me asurement (mass/volume)Ordered By: Dr. Morgan on 08-16-2022 Urate [Mass/Vol] 7.2 mg/dL 2.6-6.0 [facility] Comment on above: The drugs N-Acetylcy steine and Metamizole may falsely depress this assay. Thin prep Papanicolaou smear with manual screeningOrdered By: Dr. Morgan on 08-16-2022 Thin prep Papanicolaou smear with manual screening 18 U/L 15-37 [facility] Thin prep Papanicolaou smear with manual screening 5 5-15 [facility] Absolute lymphocyte countOrd ered By: Dr. Mcknight on 07-25-2022 Lymphocytes Auto (Unsp spec) [#/Vol] 1.32 10*3/uL 0.83-4.51 [facility] Basophil percentageOrdered B y: Dr. Mcknight on 07-25-2022 Basophil percentage 5.3 mg/dL 2.5-4.9 [facility] Basophils/100 WBC (Bld) 0.8 % 0-[address] [facility] Chloride [Moles/Vol] 107 mmol/L 98-107 [facility] Eosinophils/100 WBC (Bld) 5.3 % 0-5 [facility] Glucose [Mass/Vol] 152 mg/dL 74-106 [facility] Comment on above: Fasting Glucose resu lt greater than or equal to 126 mg/dL suggests DIABETES MELLITUS per A.D.A. criteria. Neutrophils (Bld) [#/Vol] 3.0 10*3/uL 2.0-7.7 [facility] Neutrophils/100 WBC (Bld) 59.9 % 47-70 [facility] Potassium [Moles/Vol] 4.5 mmol/L 3.5-5.1 [facility] Sodium [Moles/Vol] 138 mmol/L 136-145 [facility] WBC (Bld) [#/Vol] 5.1 10*3/uL 4.4-11.0 [facility] Blood erythrocytes count (nu mber/volume)Ordered By: Dr. Mcknight on 07-25-2022 RBC (Bld) [#/Vol] 3.23 10*6/uL 4.2-5.4 [facility] Blood hemoglobin measurement (mass/volume)Ordered By: Dr. Mcknight on 07-25-2022 Hemoglobin (Bld) [Mass/Vol] 9.8 g/dL 12.0-15.0 [facility] Blood lymphocytes/100 leukoc ytesOrdered By: Dr. Mcknight on 07-25-2022 Lymphocytes/100 WBC (Bld) 26.1 % 19-41 [facility] Blood monocytes/100 leukocyt esOrdered By: Dr. Mcknight on 07-25-2022 Monocytes/100 WBC (Bld) 7.3 % 0-[address] [facility] Blood platelet mean volumeOr dered By: Dr. Mcknight on 07-25-2022 Platelet mean volume (Bld) [Entitic vol] 9.6 fL 6.2-12.0 [facility] Determination of erythrocyte mean corpuscular volume (MCV)Ordered By: Dr. Mcknight on 07-25-2022 MCV (RBC) [Entitic vol] 98.1 fL 81-[address] [facility] Hematocrit Auto (Bld) [Volum e fraction]Ordered By: Dr. Mcknight on 07-25-2022 Hematocrit (Bld) [Volume fraction] 31.7 % 37-47 [facility] Iron measurement (mass/mass) Ordered By: Dr. Mcknight on 07-25-2022 Iron (Unsp spec) [Mass/Mass] 39 ug/dL 50-170 [facility] Laboratory - Chemistry and C hemistry - challengeOrdered By: Dr. Mcknight on 07-25-2022 CO2 [Moles/Vol] 24.0 mmol/L 21.0-32.0 [facility] Urea nitrogen/Creatinine [Mass ratio] 11.9 mg/mg 10-20 [facility] Laboratory - Hematology and Cell countsOrdered By: Dr. Mcknight on 07-25-2022 Erythrocyte distribution width (RBC) [Entitic vol] 51.1 fL 35.1-43.9 [facility] Erythrocyte distribution width (RBC) [Ratio] 14.2 % 11.6-14.6 [facility] Immature granulocytes/100 WBC (Bld) 0.600 % 0.0-0.9 [facility] Comment on above: IG% - Immature Granu locytes (promyelocytes, myelocytes and metamyelocytes) > 1% indicates that a LEFT SHIFT is Present. MCH (RBC) [Entitic mass] 30.3 pg 27.0-32.0 [facility] Nucleated RBC/100 WBC (Bld) [Ratio] 0 % 0-5 [facility] MCHC Auto (RBC) [Mass/Vol]Or dered By: Dr. Mcknight on 07-25-2022 MCHC (RBC) [Mass/Vol] 30.9 g/dL 32-36 [facility] No Panel InformationOrdered By: Dr. Mcknight on 07-25-2022 Estimated Creatinine Clearance Calc 7.28 ml/min [facility] Estimated GFR (MDRD) Amer 13 mL/min >60 [facility] Comment on above: GFR Calc Estimated GFR (MDRD) Non-Af Amer 11 mL/min >60 [facility] Comment on above: Non- GFR Calc Total Iron Binding Capacity 224 ug/dL 250-450 [facility] Platelets bldOrdered By: Dr. Mcknight on 07-25-2022 Platelets (Bld) [#/Vol] 175 10*3/uL 150-450 [facility] Serum or plasma albumin sandra urement (mass/volume)Ordered By: Dr. Mcknight on 07-25-2022 Albumin [Mass/Vol] 2.8 g/dL 3.2-5.0 [facility] Serum or plasma calcium sandra urement (mass/volume)Ordered By: Dr. Mcknight on 07-25-2022 Calcium [Mass/Vol] 9.1 mg/dL 8.5-10.1 [facility] Serum or plasma creatinine m easurement (mass/volume)Ordered By: Dr. Mcknight on 07-25-2022 Creatinine [Mass/Vol] 4.28 mg/dL 0.55-1.02 [facility] Comment on above: The validity of the calculated GFR & GFRAA in patients over 70 years has not been determined. Clinical correlation is essential. Serum or plasma ferritin ivan surement (mass/volume)Ordered By: Dr. Mcknight on 07-25-2022 Ferritin [Mass/Vol] 385 ng/mL 8-252 [facility] Serum or plasma iron saturat ion measurement (mass fraction)Ordered By: Dr. Mcknight on 07-25-2022 Iron saturation [Mass fraction] 17.4 % 15.0-55.0 [facility] Serum or plasma urea nitroge n measurement (mass/volume)Ordered By: Dr. Mcknight on 07-25-2022 Urea nitrogen [Mass/Vol] 51 mg/dL 7-18 [facility] Absolute lymphocyte countOrd ered By: Dr. Mcknight on 06-27-2022 Lymphocytes Auto (Unsp spec) [#/Vol] 1.31 10*3/uL 0.83-4.51 [facility] Basophil percentageOrdered B y: Dr. Mcknight on 06-27-2022 Basophil percentage 5.1 mg/dL 2.5-4.9 [facility] Basophils/100 WBC (Bld) 0.5 % 0-1 [facility] Chloride [Moles/Vol] 107 mmol/L 98-107 [facility] [place] Eosinophils/100 WBC (Bld) 5.4 % 0-5 [facility] Glucose [Mass/Vol] 109 mg/dL 74-106 [facility] Comment on above: Fasting Glucose resu lt from 100 to 125 mg/dL suggests IMPAIRED HOMEOSTASIS per A.D.A. criteria. Neutrophils (Bld) [#/Vol] 3.7 10*3/uL 2.0-7.7 [facility] Neutrophils/100 WBC (Bld) 62.5 % 47-70 [facility] Potassium [Moles/Vol] 4.6 mmol/L 3.5-5.1 [facility] Sodium [Moles/Vol] 138 mmol/L 136-145 [facility] WBC (Bld) [#/Vol] 5.9 10*3/uL 4.4-11.0 [facility] Blood erythrocytes count (nu mber/volume)Ordered By: Dr. Mcknight on 06-27-2022 RBC (Bld) [#/Vol] 2.61 10*6/uL 4.2-5.4 [facility] Blood hemoglobin measurement (mass/volume)Ordered By: Dr. Mcknight on 06-27-2022 Hemoglobin (Bld) [Mass/Vol] 8.1 g/dL 12.0-15.0 [facility] Blood lymphocytes/100 leukoc ytesOrdered By: Dr. Mcknight on 06-27-2022 Lymphocytes/100 WBC (Bld) 22.3 % 19-41 [facility] Blood monocytes/100 leukocyt esOrdered By: Dr. Mcknight on 06-27-2022 Monocytes/100 WBC (Bld) 8.8 % 0-[address] [facility] Blood platelet mean volumeOr dered By: Dr. Mcknight on 06-27-2022 Platelet mean volume (Bld) [Entitic vol] 10.1 fL 6.2-12.0 [facility] Determination of erythrocyte mean corpuscular volume (MCV)Ordered By: Dr. Mcknight on 06-27-2022 MCV (RBC) [Entitic vol] 98.5 fL 81-[address] [facility] Hematocrit Auto (Bld) [Volum e fraction]Ordered By: Dr. Mcknight on 06-27-2022 Hematocrit (Bld) [Volume fraction] 25.7 % 37-47 [facility] Iron measurement (mass/mass) Ordered By: Dr. Mcknight on 06-27-2022 Iron (Unsp spec) [Mass/Mass] 56 ug/dL 50-170 [facility] Laboratory - Chemistry and C hemistry - challengeOrdered By: Dr. Mcknight on 06-27-2022 CO2 [Moles/Vol] 24.0 mmol/L 21.0-32.0 [facility] Urea nitrogen/Creatinine [Mass ratio] 14.7 mg/mg 10-20 [facility] Laboratory - Hematology and Cell countsOrdered By: Dr. Mcknight on 06-27-2022 Erythrocyte distribution width (RBC) [Entitic vol] 47.0 fL 35.1-43.9 [facility] Erythrocyte distribution width (RBC) [Ratio] 13.2 % 11.6-14.6 [facility] Immature granulocytes/100 WBC (Bld) 0.500 % 0.0-0.9 [facility] Comment on above: IG% - Immature Granu locytes (promyelocytes, myelocytes and metamyelocytes) > 1% indicates that a LEFT SHIFT is Present. MCH (RBC) [Entitic mass] 31.0 pg 27.0-32.0 [facility] Nucleated RBC/100 WBC (Bld) [Ratio] 0 % 0-5 [facility] MCHC Auto (RBC) [Mass/Vol]Or dered By: Dr. Mcknight on 06-27-2022 MCHC (RBC) [Mass/Vol] 31.5 g/dL 32-36 [facility] No Panel InformationOrdered By: Dr. Mcknight on 06-27-2022 Estimated Creatinine Clearance Calc 8.49 ml/min [facility] Estimated GFR (MDRD) Amer 15 mL/min >60 [facility] Comment on above: GFR Calc Estimated GFR (MDRD) Non-Af Amer 13 mL/min >60 [facility] Comment on above: Non- GFR Calc Total Iron Binding Capacity 233 ug/dL 250-450 [facility] Platelets bldOrdered By: Dr. Mcknight on 06-27-2022 Platelets (Bld) [#/Vol] 154 10*3/uL 150-450 [facility] Serum or plasma albumin sandra urement (mass/volume)Ordered By: Dr. Mcknight on 06-27-2022 Albumin [Mass/Vol] 2.7 g/dL 3.2-5.0 [facility] Serum or plasma calcium sandra urement (mass/volume)Ordered By: Dr. Mcknight on 06-27-2022 Calcium [Mass/Vol] 9.1 mg/dL 8.5-10.1 [facility] Serum or plasma creatinine m easurement (mass/volume)Ordered By: Dr. Mcknight on 06-27-2022 Creatinine [Mass/Vol] 3.67 mg/dL 0.55-1.02 [facility] Comment on above: The validity of the calculated GFR & GFRAA in patients over 70 years has not been determined. Clinical correlation is essential. Serum or plasma ferritin ivan surement (mass/volume)Ordered By: Dr. Mcknight on 06-27-2022 Ferritin [Mass/Vol] 545 ng/mL 8-252 [facility] Serum or plasma iron saturat ion measurement (mass fraction)Ordered By: Dr. Mcknight on 06-27-2022 Iron saturation [Mass fraction] 24.0 % 15.0-55.0 [facility] Serum or plasma urea nitroge n measurement (mass/volume)Ordered By: Dr. Mcknight on 06-27-2022 Urea nitrogen [Mass/Vol] 54 mg/dL 7-18 [facility] Absolute lymphocyte countOrd ered By: Dr. Mcknight on 06-13-2022 Lymphocytes Auto (Unsp spec) [#/Vol] 1.30 10*3/uL 0.83-4.51 [facility] Basophil percentageOrdered B y: Dr. Mcknight on 06-13-2022 Basophil percentage 5.2 mg/dL 2.5-4.9 [facility] Basophils/100 WBC (Bld) 0.4 % 0-[address] [facility] Chloride [Moles/Vol] 107 mmol/L 98-107 [facility] [place] Eosinophils/100 WBC (Bld) 4.2 % 0-5 [facility] Glucose [Mass/Vol] 157 mg/dL 74-106 [facility] Comment on above: Fasting Glucose resu lt greater than or equal to 126 mg/dL suggests DIABETES MELLITUS per A.D.A. criteria. Neutrophils (Bld) [#/Vol] 5.1 10*3/uL 2.0-7.7 [facility] Neutrophils/100 WBC (Bld) 71.2 % 47-70 [facility] Potassium [Moles/Vol] 4.4 mmol/L 3.5-5.1 [facility] Sodium [Moles/Vol] 139 mmol/L 136-145 [facility] WBC (Bld) [#/Vol] 7.1 10*3/uL 4.4-11.0 [facility] Blood erythrocytes count (nu mber/volume)Ordered By: Dr. Mcknight on 06-13-2022 RBC (Bld) [#/Vol] 2.82 10*6/uL 4.2-5.4 [facility] Blood hemoglobin measurement (mass/volume)Ordered By: Dr. Mcknight on 06-13-2022 Hemoglobin (Bld) [Mass/Vol] 8.7 g/dL 12.0-15.0 [facility] Blood lymphocytes/100 leukoc ytesOrdered By: Dr. Mcknight on 06-13-2022 Lymphocytes/100 WBC (Bld) 18.3 % 19-41 [facility] Blood monocytes/100 leukocyt esOrdered By: Dr. Mcknight on 06-13-2022 Monocytes/100 WBC (Bld) 5.3 % 0-[address] [facility] Blood platelet mean volumeOr dered By: Dr. Mcknight on 06-13-2022 Platelet mean volume (Bld) [Entitic vol] 10.1 fL 6.2-12.0 [facility] Determination of erythrocyte mean corpuscular volume (MCV)Ordered By: Dr. Mcknight on 06-13-2022 MCV (RBC) [Entitic vol] 97.5 fL 81-[address] [facility] Hematocrit Auto (Bld) [Volum e fraction]Ordered By: Dr. Mcknight on 06-13-2022 Hematocrit (Bld) [Volume fraction] 27.5 % 37-47 [facility] Iron measurement (mass/mass) Ordered By: Dr. Mcknight on 06-13-2022 Iron (Unsp spec) [Mass/Mass] 69 ug/dL 50-170 [facility] Laboratory - Chemistry and C hemistry - challengeOrdered By: Dr. Mcknight on 06-13-2022 CO2 [Moles/Vol] 25.0 mmol/L 21.0-32.0 [facility] Urea nitrogen/Creatinine [Mass ratio] 15.9 mg/mg 10-20 [facility] Laboratory - Hematology and Cell countsOrdered By: Dr. Mcknight on 06-13-2022 Erythrocyte distribution width (RBC) [Entitic vol] 46.5 fL 35.1-43.9 [facility] Erythrocyte distribution width (RBC) [Ratio] 13.1 % 11.6-14.6 [facility] Immature granulocytes/100 WBC (Bld) 0.600 % 0.0-0.9 [facility] Comment on above: IG% - Immature Granu locytes (promyelocytes, myelocytes and metamyelocytes) > 1% indicates that a LEFT SHIFT is Present. MCH (RBC) [Entitic mass] 30.9 pg 27.0-32.0 [facility] Nucleated RBC/100 WBC (Bld) [Ratio] 0 % 0-5 [facility] MCHC Auto (RBC) [Mass/Vol]Or dered By: Dr. Mcknight on 06-13-2022 MCHC (RBC) [Mass/Vol] 31.6 g/dL 32-36 [facility] No Panel InformationOrdered By: Dr. Mcknight on 06-13-2022 Estimated Creatinine Clearance Calc 8.54 ml/min [facility] Estimated GFR (MDRD) Amer 15 mL/min >60 [facility] Comment on above: GFR Calc Estimated GFR (MDRD) Non-Af Amer 13 mL/min >60 [facility] Comment on above: Non- GFR Calc Parathyroid Hormone (Intact) 117.1 pg/mL 18.4-80.1 [facility] Total Iron Binding Capacity 322 ug/dL 250-450 [facility] Platelets bldOrdered By: Dr. Mcknight on 06-13-2022 Platelets (Bld) [#/Vol] 184 10*3/uL 150-450 [facility] Serum or plasma albumin sandra urement (mass/volume)Ordered By: Dr. Mcknight on 06-13-2022 Albumin [Mass/Vol] 2.9 g/dL 3.2-5.0 [facility] Serum or plasma calcium sandra urement (mass/volume)Ordered By: Dr. Mcknight on 06-13-2022 Calcium [Mass/Vol] 9.3 mg/dL 8.5-10.1 [facility] Serum or plasma creatinine m easurement (mass/volume)Ordered By: Dr. Mcknight on 06-13-2022 Creatinine [Mass/Vol] 3.65 mg/dL 0.55-1.02 [facility] Comment on above: The validity of the calculated GFR & GFRAA in patients over 70 years has not been determined. Clinical correlation is essential. Serum or plasma ferritin ivan surement (mass/volume)Ordered By: Dr. Mcknight on 06-13-2022 Ferritin [Mass/Vol] 678 ng/mL 8-252 [facility] Serum or plasma iron saturat ion measurement (mass fraction)Ordered By: Dr. Mcknight on 06-13-2022 Iron saturation [Mass fraction] 21.4 % 15.0-55.0 [facility] Serum or plasma urea nitroge n measurement (mass/volume)Ordered By: Dr. Mcknight on 06-13-2022 Urea nitrogen [Mass/Vol] 58 mg/dL 11-12 [facility] .Auto Diffon 05-23-2022 Basophil, Absolute 0.0 10 3/mcL Normal 0.0-0.3 [facility] ([place]) Comment on above: Performed By: #### C SHAYY ALVAREZ, ANEU ####[address] [address] Basophils/100 WBC (Bld) 0.5 % Normal 0.0-2.5 [facility] ([place]) Comment on above: Performed By: #### C SHAYY ALVAREZ, ANEU ####[address] [address] Eosinophil, Absolute 0.3 10 3/mcL Normal 0.0-0.7 [facility] ([place]) Comment on above: Performed By: #### C SHAYY ALVAREZ, ANEU ####[address] [address] Eosinophils/100 WBC (Bld) 4.4 % Normal 0.0-6.0 [facility] ([place]) Comment on above: Performed By: #### C SHAYY ALVAREZ, ANEU ####[address] [address] Lymphocyte, Absolute 1.4 10 3/mcL Normal 0.9-4.3 [facility] ([place]) Comment on above: Performed By: #### C SHAYY ALVAREZ, ANEU ####[address] [address] Lymphocytes/100 WBC (Bld) 22.1 % Normal 20.0-40.0 [facility] ([place]) Comment on above: Performed By: #### C SHAYY ALVAREZ, ANEU ####[address] [address] Monocyte, Absolute 0.4 10 3/mcL Normal 0.1-1.4 [facility] ([place]) Comment on above: Performed By: #### C SHAYY ALVAREZ, ANEU ####[address] [address] Monocytes/100 WBC (Bld) 6.6 % Normal 2.0-13.0 [facility] ([place]) Comment on above: Performed By: #### C SHAYY ALVAREZ, MAHNAZ ####[address] [address] Neutrophils/100 WBC (Bld) 66.4 % Normal 50.0-75.0 [facility] ([place]) Comment on above: Performed By: #### C SHAYY ALVAREZ, MAHNAZ ####[address] [address] .GFRon 05-23-2022 GFR 13 ml/min/1.73sqm Normal [facility] ([place]) Comment on above: Result Comment: GFR Population mean for , Non- Americans Ages 20-29 = 116 mL/min/1.73 sq.m. Ages 30-39 = 107 mL/min/1.73 sq.m. Ages 40-49 = 99 mL/min/1.73 sq.m. Ages 50-59 = 93 mL/min/1.73 sq.m. Ages 60-69 = 85 mL/min/1.73 sq.m. Ages 70+ = 75 mL/min/1.73 sq.m.Chronic Kidney Disease: Less than 60 mL/min/1.73 square metersEnd Stage Renal Disease: Less than 15 mL/min/1.73 square meters Performed By: #### G FR, PTH, FES, FERR, RFP ####[address] [address] GFR Non- 11 ml/min/1.73sqm Normal [facility] ([place]) Comment on above: Result Comment: GFR Population mean for , Non- Americans Ages 20-29 = 116 mL/min/1.73 sq.m. Ages 30-39 = 107 mL/min/1.73 sq.m. Ages 40-49 = 99 mL/min/1.73 sq.m. Ages 50-59 = 93 mL/min/1.73 sq.m. Ages 60-69 = 85 mL/min/1.73 sq.m. Ages 70+ = 75 mL/min/1.73 sq.m.Chronic Kidney Disease: Less than 60 mL/min/1.73 square metersEnd Stage Renal Disease: Less than 15 mL/min/1.73 square meters Performed By: #### G FR, PTH, FES, FERR, RFP ####[place] [address] .NEUABSon 05-23-2022 Neutrophil, Absolute 4.1 10 3/mcL Normal 2.3-8.1 [facility] ([place]) Comment on above: Performed By: #### SHAYY MEJIA ANEU ####[place] [address] CBCon 05-23-2022 Erythrocyte distribution width (RBC) [Ratio] 14.2 % Normal 11.5-15.5 [facility] ([place]) Comment on above: Performed By: #### SHAYY MEJIA ANEU ####[place] [address] Hematocrit (Bld) [Volume fraction] 25.1 % Low 34.0-46.0 [facility] ([place]) Comment on above: Performed By: #### SHAYY MEJIA ANEU ####[place] [address] Hgb 8.3 G/dL Low 12.0-16.0 [facility] ([place]) Comment on above: Performed By: #### SHAYY MEJIA ANEU ####[place] [address] MCH (RBC) [Entitic mass] 31.3 pg Normal 27.0-33.0 [facility] ([place]) Comment on above: Performed By: #### SHAYY MEJIA, ANEU ####[place] [address] MCHC 33.2 G/dL Normal 32.0-36.0 [facility] ([place]) Comment on above: Performed By: #### SHAYY MEJIA, ANEU ####[place] [address] MCV (RBC) [Entitic vol] 94.4 fL Normal 80.0-99.0 [facility] ([place]) Comment on above: Performed By: #### SHAYY MEJIA, MAHNAZ ####[place] [address] Platelet 165 10 3/mcL Normal 150-450 [facility] ([place]) Comment on above: Performed By: #### C SHAYY ALVAREZ ANEU ####[place] [address] Platelet mean volume (Bld) [Entitic vol] 8.6 fL Normal 6.6-10.5 [facility] ([place]) Comment on above: Performed By: #### C SHAYY ALVAREZ, MAHNAZ ####[place] [address] RBC 2.66 10 6/mcL Low 4.10-5.30 [facility] ([place]) Comment on above: Performed By: #### C SHAYY ALVAREZ ANEU ####[place] [address] WBC 6.3 10 3/mcL Normal 4.5-10.8 [facility] ([place]) Comment on above: Performed By: #### C SHAYY ALVAREZ ANEU ####[place] [address] Nicolette 05-23-2022 Ferritin [Mass/Vol] 622.0 ng/mL High 8.0-252.0 [facility] ([place]) Comment on above: Performed By: #### G FR, PTH, FES, FERR, RFP ####[place] [address] FESon 05-23-2022 Iron [Mass/Vol] 58 ug/dL Normal 50-170 [facility] ([place]) Comment on above: Performed By: #### G FR, PTH, FES, FERR, RFP ####[place] [address] Iron Sat 23 % Normal [facility] ([place]) Comment on above: Performed By: #### G FR, PTH, FES, FERR, RFP ####[place] [address] TIBC 257 mcg/dL Normal 250-500 [facility] ([place]) Comment on above: Performed By: #### G FR, PTH, FES, FERR, RFP ####[place] [id number] [place] [address] LABORATORYOrdered By: SYSTEM SYSTEM on 05-23-2022 Albumin BCP dye [Mass/Vol] 2.9 G/dL Invalid Interpretation Code 3.2 - 4.8 G/dL ADM SS Basophils (Bld) [#/Vol] 0.0 103/mcL Invalid Interpretation Code 0.0 - 0.3 10^3/mcL AH Workflow SS Basophils/100 WBC (Bld) 0.5 % Invalid Interpretation Code 0.0 - 2.5 % Workflow SS Calcium [Mass/Vol] 9.3 mg/dL Invalid Interpretation Code 8.7 - 10.4 mg/dL ADM SS Chloride [Moles/Vol] 103 mmol/L Invalid Interpretation Code 98 - 110 mEq/L ADM SS CO2 [Moles/Vol] 25 mmol/L Invalid Interpretation Code 22 - 32 mEq/L ADM SS Creatinine [Mass/Vol] 3.89 mg/dL Invalid Interpretation Code 0.50 - 1.20 mg/dL ADM SS Electrolyte Balance 10.0 mEq/L Invalid Interpretation Code 4.0 - 15.0 mEq/L ADM SS Eosinophils (Bld) [#/Vol] 0.3 103/mcL Invalid Interpretation Code 0.0 - 0.7 10^3/mcL Workflow SS Eosinophils/100 WBC (Bld) 4.4 % Invalid Interpretation Code 0.0 - 6.0 % Workflow SS Erythrocyte distribution width (RBC) [Ratio] 14.2 % Invalid Interpretation Code 11.5 - 15.5 % Workflow SS Ferritin [Mass/Vol] 622.0 ng/mL Invalid Interpretation Code 8.0 - 252.0 ng/mL ADM SS GFR/1.73 sq M.predicted among blacks MDRD (S/P/Bld) [Vol rate/Area] 13 ml/min/1.73sqm Invalid Interpretation Code Chemistry S GFR/1.73 sq M.predicted among non-blacks MDRD (S/P/Bld) [Vol rate/Area] 11 ml/min/1.73sqm Invalid Interpretation Code Chemistry S Glucose [Mass/Vol] 167 mg/dL Invalid Interpretation Code 82 - 115 mg/dL ADM SS Hematocrit (Bld) [Volume fraction] 25.1 % Invalid Interpretation Code 34.0 - 46.0 % Workflow SS Hemoglobin (Bld) [Mass/Vol] 8.3 G/dL Invalid Interpretation Code 12.0 - 16.0 G/dL AH Workflow SS Iron [Mass/Vol] 58 ug/dL Invalid Interpretation Code 50 - 170 mcg/dL ADM SS Iron binding capacity [Mass/Vol] 257 mcg/dL Invalid Interpretation Code 250 - 500 mcg/dL ADM SS Iron saturation [Mass fraction] 23 1 Invalid Interpretation Code ADM SS Lymphocytes (Bld) [#/Vol] 1.4 103/mcL Invalid Interpretation Code 0.9 - 4.3 10^3/mcL AH Workflow SS Lymphocytes/100 WBC (Bld) 22.1 % Invalid Interpretation Code 20.0 - 40.0 % Workflow SS MCH (RBC) [Entitic mass] 31.3 pg Invalid Interpretation Code 27.0 - 33.0 pg Workflow SS MCHC 33.2 G/dL Invalid Interpretation Code 32.0 - 36.0 G/dL Workflow SS MCV (RBC) [Entitic vol] 94.4 fL Invalid Interpretation Code 80.0 - 99.0 fL Workflow SS Monocytes (Bld) [#/Vol] 0.4 103/mcL Invalid Interpretation Code 0.1 - 1.4 10^3/mcL AH Workflow SS Monocytes/100 WBC (Bld) 6.6 % Invalid Interpretation Code 2.0 - 13.0 % Workflow SS Neutrophils (Bld) [#/Vol] 4.1 103/mcL Invalid Interpretation Code 2.3 - 8.1 10^3/mcL Workflow SS Neutrophils/100 WBC (Bld) 66.4 % Invalid Interpretation Code 50.0 - 75.0 % Workflow SS Parathyrin.intact [Mass/Vol] 116.8 pg/mL Invalid Interpretation Code 18.5 - 88.0 pg/mL ADM SS Phosphate [Mass/Vol] 5.0 mg/dL Invalid Interpretation Code 2.4 - 5.1 mg/dL ADM SS Platelet mean volume (Bld) [Entitic vol] 8.6 fL Invalid Interpretation Code 6.6 - 10.5 fL Workflow SS Platelets (Bld) [#/Vol] 165 103/mcL Invalid Interpretation Code 150 - 450 10^3/mcL AH Workflow SS Potassium [Moles/Vol] 4.8 mmol/L Invalid Interpretation Code 3.5 - 5.0 mEq/L AH ADM SS RBC (Bld) [#/Vol] 2.66 106/mcL Invalid Interpretation Code 4.10 - 5.30 10^6/mcL AH Workflow SS Sodium [Moles/Vol] 138 mmol/L Invalid Interpretation Code 136 - 145 mEq/L AH ADM SS Urea nitrogen [Mass/Vol] 60.0 mg/dL Invalid Interpretation Code 8.0 - 22.0 mg/dL AH ADM SS Urea nitrogen/Creatinine [Mass ratio] 15.4 ratio Invalid Interpretation Code 10.0 - 22.0 ratio AH ADM SS WBC (Bld) [#/Vol] 6.3 103/mcL Invalid Interpretation Code 4.5 - 10.8 10^3/mcL AH Workflow SS PTHon 05-23-2022 PTH, Intact 116.8 pg/mL High 18.5-88.0 [facility] ([place]) Comment on above: Performed By: #### G FR, PTH, FES, FERR, RFP ####[address] [address] RFPon 05-23-2022 Albumin Level 2.9 G/dL Low 3.2-4.8 [facility] ([place]) Comment on above: Performed By: #### G FR, PTH, FES, FERR, RFP ####[address] [address] BUN/Creatinine Ratio 15.4 ratio Normal 10.0-22.0 [facility] ([place]) Comment on above: Performed By: #### G FR, PTH, FES, FERR, RFP ####[address] [address] Calcium [Mass/Vol] 9.3 mg/dL Normal 8.7-10.4 [facility] ([place]) Comment on above: Performed By: #### G FR, PTH, FES, FERR, RFP ####[address] [address] Chloride [Moles/Vol] 103 mmol/L Normal 98-110 [facility] ([place]) Comment on above: Performed By: #### G FR, PTH, FES, FERR, RFP ####[address] [address] CO2 [Moles/Vol] 25 mmol/L Normal 22-32 [facility] ([place]) Comment on above: Performed By: #### G FR, PTH, FES, FERR, RFP ####[address] [address] Creatinine [Mass/Vol] 3.89 mg/dL High 0.50-1.20 [facility] ([place]) Comment on above: Performed By: #### G FR, PTH, FES, FERR, RFP ####[address] [address] Electrolyte Balance 10.0 mEq/L Normal 4.0-15.0 [facility] ([place]) Comment on above: Performed By: #### G FR, PTH, FES, FERR, RFP ####[address] [address] Glucose [Mass/Vol] 167 mg/dL High 82-115 [facility] ([place]) Comment on above: Performed By: #### G FR, PTH, FES, FERR, RFP ####[address] [address] Phosphate [Mass/Vol] 5.0 mg/dL Normal 2.4-5.1 [facility] ([place]) Comment on above: Result Comment: No te - New Reference Range in effect 19 Performed By: #### G FR, PTH, FES, FERR, RFP ####[address] [address] Potassium [Moles/Vol] 4.8 mmol/L Normal 3.5-5.0 [facility] ([place]) Comment on above: Performed By: #### G FR, PTH, FES, FERR, RFP ####[address] [address] Sodium [Moles/Vol] 138 mmol/L Normal 136-145 [facility] ([place]) Comment on above: Performed By: #### G FR, PTH, FES, FERR, RFP ####[address] [address] Urea nitrogen [Mass/Vol] 60.0 mg/dL High 8.0-22.0 [facility] ([place]) Comment on above: Performed By: #### G FR, PTH, FES, FERR, RFP ####[address] [address] .GFRon 04-12-2022 GFR 17 ml/min/1.73sqm Normal [facility] ([place]) Comment on above: Result Comment: GFR Population mean for , Non- Americans Ages 20-29 = 116 mL/min/1.73 sq.m. Ages 30-39 = 107 mL/min/1.73 sq.m. Ages 40-49 = 99 mL/min/1.73 sq.m. Ages 50-59 = 93 mL/min/1.73 sq.m. Ages 60-69 = 85 mL/min/1.73 sq.m. Ages 70+ = 75 mL/min/1.73 sq.m.Chronic Kidney Disease: Less than 60 mL/min/1.73 square metersEnd Stage Renal Disease: Less than 15 mL/min/1.73 square meters Performed By: #### F ES, FERR, GFR, BMP ####[place] [address] GFR Non- 14 ml/min/1.73sqm Normal [facility] ([place]) Comment on above: Result Comment: GFR Population mean for , Non- Americans Ages 20-29 = 116 mL/min/1.73 sq.m. Ages 30-39 = 107 mL/min/1.73 sq.m. Ages 40-49 = 99 mL/min/1.73 sq.m. Ages 50-59 = 93 mL/min/1.73 sq.m. Ages 60-69 = 85 mL/min/1.73 sq.m. Ages 70+ = 75 mL/min/1.73 sq.m.Chronic Kidney Disease: Less than 60 mL/min/1.73 square metersEnd Stage Renal Disease: Less than 15 mL/min/1.73 square meters Performed By: #### F ES, FERR, GFR, BMP ####[address] [address] .Manual Diffon 04-12-2022 Basophil %, Manual 2.0 % Normal 0.0-2.5 [facility] ([place]) Comment on above: Performed By: #### F ES, FERR, GFR, BMP ####[address] [address] Basophil, Abs Manual 0.1 10 3/mcL Normal 0.0-0.3 [facility] ([place]) Comment on above: Performed By: #### F ES, FERR, GFR, BMP ####[address] [address] Eosinophil %, Manual 4.0 % Normal 0.0-6.0 [facility] ([place]) Comment on above: Performed By: #### F ES, FERR, GFR, BMP ####[address] [address] Eosinophil, Abs Manual 0.2 10 3/mcL Normal 0.0-0.7 [facility] ([place]) Comment on above: Performed By: #### F ES, FERR, GFR, BMP ####[address] [address] Lymphocyte %, Manual 22.0 % Normal 20.0-40.0 [facility] ([place]) Comment on above: Performed By: #### F ES, FERR, GFR, BMP ####[address] [address] Lymphocyte, Abs Manual 1.4 10 3/mcL Normal 0.9-4.3 [facility] ([place]) Comment on above: Performed By: #### F ES, FERR, GFR, BMP ####[address] [address] Monocyte %, Manual 8.0 % Normal 2.0-13.0 [facility] ([place]) Comment on above: Performed By: #### F ES, FERR, GFR, BMP ####[address] [address] Monocyte, Abs Manual 0.5 10 3/mcL Normal 0.1-1.4 [facility] ([place]) Comment on above: Performed By: #### F ES, FERR, GFR, BMP ####[address] [address] Myelocyte 1.0 % Normal [facility] ([place]) Comment on above: Performed By: #### F ES, FERR, GFR, BMP ####[place] [address] Neutrophil %, Manual 63.0 % Normal 50.0-75.0 [facility] ([place]) Comment on above: Performed By: #### F ES, FERR, GFR, BMP ####[place] [address] Neutrophil, Abs Manual 4.0 10 3/mcL Normal 2.3-8.1 [facility] ([place]) Comment on above: Performed By: #### F ES, FERR, GFR, BMP ####[place] [address] Nucleated RBC 0.0 /100 WBC Normal [facility] ([place]) Comment on above: Performed By: #### F ES, FERR, GFR, BMP ####[place] [address] .Morphon 04-12-2022 Anisocytosis Ql (Bld) 1+ Normal [facility] ([place]) Comment on above: Performed By: #### F ES, FERR, GFR, BMP ####[place] [address] Platelet Estimate Normal Normal [facility] ([place]) Comment on above: Performed By: #### F ES, FERR, GFR, BMP ####[address] 04-12-2022 BUN/Creatinine Ratio 13.7 ratio Normal 10.0-22.0 [facility] ([place]) Comment on above: Performed By: #### F ES, FERR, GFR, BMP ####[place] [address] Calcium [Mass/Vol] 9.3 mg/dL Normal 8.7-10.4 [facility] ([place]) Comment on above: Performed By: #### F ES, FERR, GFR, BMP ####[place] [address] Chloride [Moles/Vol] 106 mmol/L Normal 98-110 [facility] ([place]) Comment on above: Performed By: #### F ES, FERR, GFR, BMP ####[address] [address] CO2 [Moles/Vol] 23 mmol/L Normal 22-32 [facility] ([place]) Comment on above: Performed By: #### F ES, FERR, GFR, BMP ####[address] [address] Creatinine [Mass/Vol] 3.22 mg/dL High 0.50-1.20 [facility] ([place]) Comment on above: Performed By: #### F ES, FERR, GFR, BMP ####[place] [address] Electrolyte Balance 11.0 mEq/L Normal 4.0-15.0 [facility] ([place]) Comment on above: Performed By: #### F ES, FERR, GFR, BMP ####[place] [address] Glucose [Mass/Vol] 120 mg/dL High 82-115 [facility] ([place]) Comment on above: Performed By: #### F ES, FERR, GFR, BMP ####[place] [address] Potassium [Moles/Vol] 4.4 mmol/L Normal 3.5-5.0 [facility] ([place]) Comment on above: Performed By: #### F ES, FERR, GFR, BMP ####[place] [address] Sodium [Moles/Vol] 140 mmol/L Normal 136-145 [facility] ([place]) Comment on above: Performed By: #### F ES, FERR, GFR, BMP ####[place] [address] Urea nitrogen [Mass/Vol] 44.0 mg/dL High 8.0-22.0 [facility] ([place]) Comment on above: Performed By: #### F ES, FERR, GFR, BMP ####[place] [address] CBCon 12-16-2022 Erythrocyte distribution width (RBC) [Ratio] 15.4 % Normal 11.5-15.5 [facility] ([place]) Comment on above: Performed By: #### F ES, FERR, GFR, BMP ####[place] [address] Hematocrit (Bld) [Volume fraction] 27.8 % Low 34.0-46.0 [facility] ([place]) Comment on above: Performed By: #### F ES, FERR, GFR, BMP ####[place] [address] Hgb 9.3 G/dL Low 12.0-16.0 [facility] ([place]) Comment on above: Performed By: #### F ES, FERR, GFR, BMP ####[place] [address] MCH (RBC) [Entitic mass] 30.4 pg Normal 27.0-33.0 [facility] ([place]) Comment on above: Performed By: #### F ES, FERR, GFR, BMP ####[place] [address] MCHC 33.2 G/dL Normal 32.0-36.0 [facility] ([place]) Comment on above: Performed By: #### F ES, FERR, GFR, BMP ####[place] [address] MCV (RBC) [Entitic vol] 91.5 fL Normal 80.0-99.0 [facility] ([place]) Comment on above: Performed By: #### F ES, FERR, GFR, BMP ####[place] [address] Platelet 211 10 3/mcL Normal 150-450 [facility] ([place]) Comment on above: Performed By: #### F ES, FERR, GFR, BMP ####[place] [address] Platelet mean volume (Bld) [Entitic vol] 8.7 fL Normal 6.6-10.5 [facility] ([place]) Comment on above: Performed By: #### F ES, FERR, GFR, BMP ####[place] [address] RBC 3.04 10 6/mcL Low 4.10-5.30 [facility] ([place]) Comment on above: Performed By: #### F ES, FERR, GFR, BMP ####[place] [address] WBC 6.3 10 3/mcL Normal 4.5-10.8 [facility] ([place]) Comment on above: Performed By: #### F ES, FERR, GFR, BMP ####[place] [address] Nicolette 04-12-2022 Ferritin [Mass/Vol] 746.0 ng/mL High 8.0-252.0 [facility] ([place]) Comment on above: Performed By: #### F ES, FERR, GFR, BMP ####[place] [address] FESon 04-12-2022 Iron [Mass/Vol] 51 ug/dL Normal 50-170 [facility] ([place]) Comment on above: Performed By: #### F ES, FERR, GFR, BMP ####[place] [address] Iron Sat 19 % Normal [facility] ([place]) Comment on above: Performed By: #### F ES, FERR, GFR, BMP ####[place] [address] TIBC 266 mcg/dL Normal 250-500 [facility] ([place]) Comment on above: Performed By: #### F ES, FERR, GFR, BMP ####[place] [address] .GFRon 03-19-2022 GFR Non- 12 ml/min/1.73sqm Normal [facility] ([place]) Comment on above: Result Comment: GFR Population mean for , Non- Americans Ages 20-29 = 116 mL/min/1.73 sq.m. Ages 30-39 = 107 mL/min/1.73 sq.m. Ages 40-49 = 99 mL/min/1.73 sq.m. Ages 50-59 = 93 mL/min/1.73 sq.m. Ages 60-69 = 85 mL/min/1.73 sq.m. Ages 70+ = 75 mL/min/1.73 sq.m.Chronic Kidney Disease: Less than 60 mL/min/1.73 square metersEnd Stage Renal Disease: Less than 15 mL/min/1.73 square meters Performed By: #### Kenna BELL, BMP ####[place] [address] GFR 14 ml/min/1.73sqm Normal [facility] ([place]) Comment on above: Result Comment: GFR Population mean for , Non- Americans Ages 20-29 = 116 mL/min/1.73 sq.m. Ages 30-39 = 107 mL/min/1.73 sq.m. Ages 40-49 = 99 mL/min/1.73 sq.m. Ages 50-59 = 93 mL/min/1.73 sq.m. Ages 60-69 = 85 mL/min/1.73 sq.m. Ages 70+ = 75 mL/min/1.73 sq.m.Chronic Kidney Disease: Less than 60 mL/min/1.73 square metersEnd Stage Renal Disease: Less than 15 mL/min/1.73 square meters Performed By: #### CLARK VILLATORO ####[place] [address] .Manual Diffon 03-19-2022 Bands 5.0 % Normal 0.0-5.0 [facility] ([place]) Comment on above: Performed By: #### Kenna BELL, BMP ####[place] [address] Basophil %, Manual 0.0 % Normal 0.0-2.5 [facility] ([place]) Comment on above: Performed By: #### Kenna BELL, BMP ####[place] [address] Basophil, Abs Manual 0.0 10 3/mcL Normal 0.0-0.3 [facility] ([place]) Comment on above: Performed By: #### Kenna BELL, BMP ####[place] [address] Eosinophil %, Manual 0.0 % Normal 0.0-6.0 [facility] ([place]) Comment on above: Performed By: #### G FR, BMP ####[address] [address] Eosinophil, Abs Manual 0.0 10 3/mcL Normal 0.0-0.7 [facility] ([place]) Comment on above: Performed By: #### G FR, BMP ####[address] [address] Lymphocyte %, Manual 5.0 % Low 20.0-40.0 [facility] ([place]) Comment on above: Performed By: #### G FR, BMP ####[address] [address] Lymphocyte, Abs Manual 0.7 10 3/mcL Low 0.9-4.3 [facility] ([place]) Comment on above: Performed By: #### G FR, BMP ####[place] [address] Metamyelocyte 3.0 % Normal [facility] ([place]) Comment on above: Performed By: #### G FR, BMP ####[address] [address] Monocyte %, Manual 2.0 % Normal 2.0-13.0 [facility] ([place]) Comment on above: Performed By: #### G FR, BMP ####[address] [address] Monocyte, Abs Manual 0.3 10 3/mcL Normal 0.1-1.4 [facility] ([place]) Comment on above: Performed By: #### G FR, BMP ####[place] [address] Myelocyte 1.0 % Normal [facility] ([place]) Comment on above: Performed By: #### G FR, BMP ####[place] [address] Neutrophil %, Manual 84.0 % High 50.0-75.0 [facility] ([place]) Comment on above: Performed By: #### G FR, BMP ####[address] [address] Neutrophil, Abs Manual 11.3 10 3/mcL High 2.3-8.1 [facility] ([place]) Comment on above: Performed By: #### Kenna BELL, BMP ####[place] [address] Nucleated RBC 1.0 /100 WBC Normal [facility] ([place]) Comment on above: Performed By: #### Kenna BELL, BMP ####[address] [address] .Morphon 03-19-2022 Anisocytosis Ql (Bld) 1+ Normal [facility] ([place]) Comment on above: Performed By: #### Kenna BELL, BMP ####[place] [address] Platelet Estimate Normal Normal [facility] ([place]) Comment on above: Performed By: #### Kenna BELL, BMP ####[address] 03-19-2022 BUN/Creatinine Ratio 21.7 ratio Normal 10.0-22.0 [facility] ([place]) Comment on above: Performed By: #### Kenna BELL, BMP ####[place] [address] Calcium [Mass/Vol] 9.1 mg/dL Normal 8.7-10.4 [facility] ([place]) Comment on above: Performed By: #### Kenna BELL, BMP ####[place] [address] Chloride [Moles/Vol] 100 mmol/L Normal 98-110 [facility] ([place]) Comment on above: Performed By: #### Kenna FR, BMP ####[place] [id number] CO2 [Moles/Vol] 25 mmol/L Normal 22-32 [facility] ([place]) Comment on above: Performed By: #### Kenna BELL, BMP ####[place] [address] Creatinine [Mass/Vol] 3.64 mg/dL High 0.50-1.20 [facility] ([place]) Comment on above: Performed By: #### Kenna BELL, BMP ####[address] [address] Electrolyte Balance 10.0 mEq/L Normal 4.0-15.0 [facility] ([place]) Comment on above: Performed By: #### Kenna BELL, BMP ####[address] [address] Glucose [Mass/Vol] 128 mg/dL High 82-115 [facility] ([place]) Comment on above: Performed By: #### Kenna BELL, BMP ####[address] [address] Potassium [Moles/Vol] 4.4 mmol/L Normal 3.5-5.0 [facility] ([place]) Comment on above: Performed By: #### Kenna BELL, BMP ####[address] [address] Sodium [Moles/Vol] 135 mmol/L Low 136-145 [facility] ([place]) Comment on above: Performed By: #### Kenna BELL, BMP ####[address] [address] Urea nitrogen [Mass/Vol] 79.0 mg/dL High 8.0-22.0 [facility] ([place]) Comment on above: Performed By: #### Kenna BELL, BMP ####[address] [address] CBCon 03-19-2022 Erythrocyte distribution width (RBC) [Ratio] 15.9 % High 11.5-15.5 [facility] ([place]) Comment on above: Performed By: #### Knena BELL, BMP ####[address] [address] Hematocrit (Bld) [Volume fraction] 25.5 % Low 34.0-46.0 [facility] ([place]) Comment on above: Performed By: #### Kenna BELL, BMP ####[address] [address] Hgb 8.5 G/dL Low 12.0-16.0 [facility] ([place]) Comment on above: Performed By: #### Kenna BELL, BMP ####[address] [address] MCH (RBC) [Entitic mass] 29.4 pg Normal 27.0-33.0 [facility] ([place]) Comment on above: Performed By: #### Kenna BELL, BMP ####[place] [address] MCHC 33.3 G/dL Normal 32.0-36.0 [facility] ([place]) Comment on above: Performed By: #### Kenna BELL, BMP ####[place] [address] MCV (RBC) [Entitic vol] 88.2 fL Normal 80.0-99.0 [facility] ([place]) Comment on above: Performed By: #### Kenna BELL, BMP ####[place] [address] Platelet 165 10 3/mcL Normal 150-450 [facility] ([place]) Comment on above: Performed By: #### Kenna BELL, BMP ####[place] [address] Platelet mean volume (Bld) [Entitic vol] 9.4 fL Normal 6.6-10.5 [facility] ([place]) Comment on above: Performed By: #### Kenna BELL, BMP ####[place] [address] RBC 2.90 10 6/mcL Low 4.10-5.30 [facility] ([place]) Comment on above: Performed By: #### Kenna BELL, BMP ####[place] [address] WBC 13.5 10 3/mcL High 4.5-10.8 [facility] ([place]) Comment on above: Performed By: #### Kenna BELL, BMP ####[place] [address] CBLon 03-19-2022 CBL Normal [facility] ([place]) LABORATORYOrdered By: Winston Zelaya on 03-19-2022 Blood Glucose Testing Reason Routine (03/19/22 11:00 AM) [facility] Work Phone: Glucose [Mass/Vol] 250 mg/dL Invalid Interpretation Code 82 - 115 mg/dL [facility] Work Phone: LABORATORYOrdered By: Jeanna moody on 03-19-2022 Glucose [Mass/Vol] 142 mg/dL Invalid Interpretation Code 82 - 115 mg/dL [facility] Work Phone: LABORATORYOrdered By: SYSTEM SYSTEM on 03-19-2022 Anisocytosis Ql (Bld) 1+ *NA* (03/19/22 4:08 AM) Invalid Interpretation Code Workflow SS Band form neutrophils/100 WBC (Bld) 5.0 % Invalid Interpretation Code 0.0 - 5.0 % Workflow SS Basophils (Bld) [#/Vol] 0.0 103/mcL Invalid Interpretation Code 0.0 - 0.3 10^3/mcL Workflow SS Basophils/100 WBC (Bld) 0.0 % Invalid Interpretation Code 0.0 - 2.5 % Workflow SS Calcium [Mass/Vol] 9.1 mg/dL Invalid Interpretation Code 8.7 - 10.4 mg/dL ADM SS Chloride [Moles/Vol] 100 mmol/L Invalid Interpretation Code 98 - 110 mEq/L ADM SS CO2 [Moles/Vol] 25 mmol/L Invalid Interpretation Code 22 - 32 mEq/L ADM SS Creatinine [Mass/Vol] 3.64 mg/dL Invalid Interpretation Code 0.50 - 1.20 mg/dL ADM SS Electrolyte Balance 10.0 mEq/L Invalid Interpretation Code 4.0 - 15.0 mEq/L ADM SS Eosinophils (Bld) [#/Vol] 0.0 103/mcL Invalid Interpretation Code 0.0 - 0.7 10^3/mcL Workflow SS Eosinophils/100 WBC (Bld) 0.0 % Invalid Interpretation Code 0.0 - 6.0 % Workflow SS Erythrocyte distribution width (RBC) [Ratio] 15.9 % Invalid Interpretation Code 11.5 - 15.5 % Workflow SS GFR/1.73 sq M.predicted among blacks MDRD (S/P/Bld) [Vol rate/Area] 14 ml/min/1.73sqm Invalid Interpretation Code Chemistry S GFR/1.73 sq M.predicted among non-blacks MDRD (S/P/Bld) [Vol rate/Area] 12 ml/min/1.73sqm Invalid Interpretation Code Chemistry S Glucose [Mass/Vol] 128 mg/dL Invalid Interpretation Code 82 - 115 mg/dL AH ADM SS Hematocrit (Bld) [Volume fraction] 25.5 % Invalid Interpretation Code 34.0 - 46.0 % AH Workflow SS Hemoglobin (Bld) [Mass/Vol] 8.5 G/dL Invalid Interpretation Code 12.0 - 16.0 G/dL AH Workflow SS Lymphocytes (Bld) [#/Vol] 0.7 103/mcL Invalid Interpretation Code 0.9 - 4.3 10^3/mcL Workflow SS Lymphocytes/100 WBC (Bld) 5.0 % Invalid Interpretation Code 20.0 - 40.0 % Workflow SS MCH (RBC) [Entitic mass] 29.4 pg Invalid Interpretation Code 27.0 - 33.0 pg AH Workflow SS MCHC 33.3 G/dL Invalid Interpretation Code 32.0 - 36.0 G/dL Workflow SS MCV (RBC) [Entitic vol] 88.2 fL Invalid Interpretation Code 80.0 - 99.0 fL Workflow SS Metamyelocytes/100 WBC (Bld) 3.0 % Invalid Interpretation Code Workflow SS Monocytes (Bld) [#/Vol] 0.3 103/mcL Invalid Interpretation Code 0.1 - 1.4 10^3/mcL Workflow SS Monocytes/100 WBC (Bld) 2.0 % Invalid Interpretation Code 2.0 - 13.0 % Workflow SS Myelocytes/100 WBC (Bld) 1.0 % Invalid Interpretation Code Workflow SS Neutrophils (Bld) [#/Vol] 11.3 103/mcL Invalid Interpretation Code 2.3 - 8.1 10^3/mcL Workflow SS Neutrophils/100 WBC (Bld) 84.0 % Invalid Interpretation Code 50.0 - 75.0 % Workflow SS Nucleated RBC 1.0 /100 WBC Invalid Interpretation Code Workflow SS Platelet mean volume (Bld) [Entitic vol] 9.4 fL Invalid Interpretation Code 6.6 - 10.5 fL Workflow SS Platelets (Bld) [#/Vol] 165 103/mcL Invalid Interpretation Code 150 - 450 10^3/mcL Workflow SS Platelets LM Ql (Bld) Normal *NA* (03/19/22 4:08 AM) Invalid Interpretation Code AH Workflow SS Potassium [Moles/Vol] 4.4 mmol/L Invalid Interpretation Code 3.5 - 5.0 mEq/L AH ADM SS RBC (Bld) [#/Vol] 2.90 106/mcL Invalid Interpretation Code 4.10 - 5.30 10^6/mcL AH Workflow SS Sodium [Moles/Vol] 135 mmol/L Invalid Interpretation Code 136 - 145 mEq/L AH ADM SS Urea nitrogen [Mass/Vol] 79.0 mg/dL Invalid Interpretation Code 8.0 - 22.0 mg/dL AH ADM SS Urea nitrogen/Creatinine [Mass ratio] 21.7 ratio Invalid Interpretation Code 10.0 - 22.0 ratio AH ADM SS WBC (Bld) [#/Vol] 13.5 103/mcL Invalid Interpretation Code 4.5 - 10.8 10^3/mcL Workflow SS LABORATORYOrdered By: Lexa Ardon on 03-19-2022 Blood Glucose Testing Reason Routine (03/19/22 1:12 AM) [facility] Work Phone: Glucose [Mass/Vol] 201 mg/dL Invalid Interpretation Code 82 - 115 mg/dL [facility] Work Phone: .GFRon 03-18-2022 GFR Non- 12 ml/min/1.73sqm Normal [facility] ([place]) Comment on above: Result Comment: GFR Population mean for , Non- Americans Ages 20-29 = 116 mL/min/1.73 sq.m. Ages 30-39 = 107 mL/min/1.73 sq.m. Ages 40-49 = 99 mL/min/1.73 sq.m. Ages 50-59 = 93 mL/min/1.73 sq.m. Ages 60-69 = 85 mL/min/1.73 sq.m. Ages 70+ = 75 mL/min/1.73 sq.m.Chronic Kidney Disease: Less than 60 mL/min/1.73 square metersEnd Stage Renal Disease: Less than 15 mL/min/1.73 square meters Performed By: #### B MP, GFR ####[place] [address] GFR 14 ml/min/1.73sqm Normal [facility] ([place]) Comment on above: Result Comment: GFR Population mean for , Non- Americans Ages 20-29 = 116 mL/min/1.73 sq.m. Ages 30-39 = 107 mL/min/1.73 sq.m. Ages 40-49 = 99 mL/min/1.73 sq.m. Ages 50-59 = 93 mL/min/1.73 sq.m. Ages 60-69 = 85 mL/min/1.73 sq.m. Ages 70+ = 75 mL/min/1.73 sq.m.Chronic Kidney Disease: Less than 60 mL/min/1.73 square metersEnd Stage Renal Disease: Less than 15 mL/min/1.73 square meters Performed By: #### B MP, GFR ####[place] [address] .Manual Diffon 03-18-2022 Bands 1.0 % Normal 0.0-5.0 [facility] ([place]) Comment on above: Performed By: #### B MP, GFR ####[place] [address] Basophil %, Manual 0.0 % Normal 0.0-2.5 [facility] ([place]) Comment on above: Performed By: #### B MP, GFR ####[place] [address] Basophil, Abs Manual 0.0 10 3/mcL Normal 0.0-0.3 [facility] ([place]) Comment on above: Performed By: #### B MP, GFR ####[place] [address] Eosinophil %, Manual 0.0 % Normal 0.0-6.0 [facility] ([place]) Comment on above: Performed By: #### B MP, GFR ####[place] [address] Eosinophil, Abs Manual 0.0 10 3/mcL Normal 0.0-0.7 [facility] ([place]) Comment on above: Performed By: #### B MP, GFR ####[place] [address] Lymphocyte %, Manual 4.0 % Low 20.0-40.0 [facility] ([place]) Comment on above: Performed By: #### B MP, GFR ####[address] [address] Lymphocyte, Abs Manual 0.5 10 3/mcL Low 0.9-4.3 [facility] ([place]) Comment on above: Performed By: #### B MP, GFR ####[place] [address] Metamyelocyte 3.0 % Normal [facility] ([place]) Comment on above: Performed By: #### B MP, GFR ####[place] [address] Monocyte %, Manual 1.0 % Low 2.0-13.0 [facility] ([place]) Comment on above: Performed By: #### B MP, GFR ####[place] [address] Monocyte, Abs Manual 0.1 10 3/mcL Normal 0.1-1.4 [facility] ([place]) Comment on above: Performed By: #### B MP, GFR ####[place] [address] Myelocyte 1.0 % Normal [facility] ([place]) Comment on above: Performed By: #### B MP, GFR ####[place] [address] Neutrophil %, Manual 90.0 % High 50.0-75.0 [facility] ([place]) Comment on above: Performed By: #### B MP, GFR ####[place] [id number] Neutrophil, Abs Manual 10.1 10 3/mcL High 2.3-8.1 [facility] ([place]) Comment on above: Performed By: #### B MP, GFR ####[place] [address] Nucleated RBC 0.0 /100 WBC Normal [facility] ([place]) Comment on above: Performed By: #### B MP, GFR ####[place] [address] .Morphon 11-21-2022 Anisocytosis Ql (Bld) 1+ Normal [facility] ([place]) Comment on above: Performed By: #### B MP, GFR ####[address] [address] Dohle Bodies 1+ Normal [facility] ([place]) Comment on above: Performed By: #### B MP, GFR ####[place] [address] Hypochrom 1+ Normal [facility] ([place]) Comment on above: Performed By: #### B MP, GFR ####[place] [address] Platelet Estimate Normal Normal [facility] ([place]) Comment on above: Performed By: #### B MP, GFR ####[place] [address] Poik 1+ Normal [facility] ([place]) Comment on above: Performed By: #### B MP, GFR ####[place] [address] Stomatocytes 1+ Normal [facility] ([place]) Comment on above: Performed By: #### B MP, GFR ####[place] [address] ABO/Rh (Gel)on 03-18-2022 ABO/Rh Interp Positive Invalid Interpretation Code [facility] ([place]) Comment on above: Performed By: #### HERSON GONSALES ####[place] [address] ABS (Gel)on 03-18-2022 ABSC Interp (Gel) Negative Normal [facility] ([place]) Comment on above: Performed By: #### HERSON GONSALES ####[place] [address] BMPon 03-18-2022 BUN/Creatinine Ratio 18.9 ratio Normal 10.0-22.0 [facility] ([place]) Comment on above: Performed By: #### B MP, GFR ####[place] [address] Calcium [Mass/Vol] 8.8 mg/dL Normal 8.7-10.4 [facility] ([place]) Comment on above: Performed By: #### B MP, GFR ####[address] [address] Chloride [Moles/Vol] 99 mmol/L Normal 98-110 [facility] ([place]) Comment on above: Performed By: #### B MP, GFR ####[address] [address] CO2 [Moles/Vol] 24 mmol/L Normal 22-32 [facility] ([place]) Comment on above: Performed By: #### B MP, GFR ####[address] [address] Creatinine [Mass/Vol] 3.71 mg/dL High 0.50-1.20 [facility] ([place]) Comment on above: Performed By: #### B MP, GFR ####[address] [address] Electrolyte Balance 9.0 mEq/L Normal 4.0-15.0 [facility] ([place]) Comment on above: Performed By: #### B MP, GFR ####[address] [address] Glucose [Mass/Vol] 189 mg/dL High 82-115 [facility] ([place]) Comment on above: Performed By: #### B MP, GFR ####[address] [address] Potassium [Moles/Vol] 5.0 mmol/L Normal 3.5-5.0 [facility] ([place]) Comment on above: Performed By: #### B MP, GFR ####[address] [address] Sodium [Moles/Vol] 132 mmol/L Low 136-145 [facility] ([place]) Comment on above: Performed By: #### B MP, GFR ####[address] [address] Urea nitrogen [Mass/Vol] 70.0 mg/dL High 8.0-22.0 [facility] ([place]) Comment on above: Performed By: #### B MP, GFR ####[place] [address] CBCon 03-18-2022 Erythrocyte distribution width (RBC) [Ratio] 15.1 % Normal 11.5-15.5 [facility] ([place]) Comment on above: Performed By: #### B MP, GFR ####[place] [address] Hematocrit (Bld) [Volume fraction] 22.5 % Low 34.0-46.0 [facility] ([place]) Comment on above: Performed By: #### B MP, GFR ####[place] [address] Hgb 7.5 G/dL Low 12.0-16.0 [facility] ([place]) Comment on above: Performed By: #### B MP, GFR ####[place] [address] MCH (RBC) [Entitic mass] 29.8 pg Normal 27.0-33.0 [facility] ([place]) Comment on above: Performed By: #### B MP, GFR ####[place] [address] MCHC 33.2 G/dL Normal 32.0-36.0 [facility] ([place]) Comment on above: Performed By: #### B MP, GFR ####[place] [address] MCV (RBC) [Entitic vol] 89.8 fL Normal 80.0-99.0 [facility] ([place]) Comment on above: Performed By: #### B MP, GFR ####[place] [id number] Platelet 168 10 3/mcL Normal 150-450 [facility] ([place]) Comment on above: Performed By: #### B MP, GFR ####[place] [address] Platelet mean volume (Bld) [Entitic vol] 8.7 fL Normal 6.6-10.5 [facility] ([place]) Comment on above: Performed By: #### B MP, GFR ####[facility] [place] [address] RBC 2.51 10 6/mcL Low 4.10-5.30 [facility] ([place]) Comment on above: Performed By: #### B MP, GFR ####[facility] [place] [address] WBC 11.2 10 3/mcL High 4.5-10.8 [facility] ([place]) Comment on above: Performed By: #### B MP, GFR ####[facility] [place] [id number] LABORATORYOrdered By: Ryan Lino on 03-18-2022 Blood Glucose Testing Reason Routine (03/18/22 9:22 PM) [facility] Work Phone: LABORATORYOrdered By: Sanchez Castle on 03-18-2022 ABO and Rh group Nom (Bld) Blood group O Rh(D) positive Invalid Interpretation Code AH BB Auto SS Blood group antibody screen Ql NEG (03/18/22 1:18 PM) Invalid Interpretation Code AH BB Auto SS RBC Product Ready RBC Ready for Pickup (03/18/22 12:49 PM) Invalid Interpretation Code AH BB Manual SS LABORATORYOrdered By: SYSTEM SYSTEM on 03-18-2022 Anisocytosis Ql (Bld) 1+ *NA* (03/18/22 10:38 AM) Invalid Interpretation Code AH Workflow SS Band form neutrophils/100 WBC (Bld) 1.0 % Invalid Interpretation Code 0.0 - 5.0 % AH Workflow SS Basophils (Bld) [#/Vol] 0.0 103/mcL Invalid Interpretation Code 0.0 - 0.3 10^3/mcL AH Workflow SS Basophils/100 WBC (Bld) 0.0 % Invalid Interpretation Code 0.0 - 2.5 % AH Workflow SS Calcium [Mass/Vol] 8.8 mg/dL Invalid Interpretation Code 8.7 - 10.4 mg/dL AH ADM SS Chloride [Moles/Vol] 99 mmol/L Invalid Interpretation Code 98 - 110 mEq/L AH ADM SS CO2 [Moles/Vol] 24 mmol/L Invalid Interpretation Code 22 - 32 mEq/L ADM SS Creatinine [Mass/Vol] 3.71 mg/dL Invalid Interpretation Code 0.50 - 1.20 mg/dL ADM SS Dohle body LM Ql (Bld) 1+ *NA* (03/18/22 10:38 AM) Invalid Interpretation Code AH Workflow SS Electrolyte Balance 9.0 mEq/L Invalid Interpretation Code 4.0 - 15.0 mEq/L ADM SS Eosinophils (Bld) [#/Vol] 0.0 103/mcL Invalid Interpretation Code 0.0 - 0.7 10^3/mcL AH Workflow SS Eosinophils/100 WBC (Bld) 0.0 % Invalid Interpretation Code 0.0 - 6.0 % AH Workflow SS Erythrocyte distribution width (RBC) [Ratio] 15.1 % Invalid Interpretation Code 11.5 - 15.5 % Workflow SS GFR/1.73 sq M.predicted among blacks MDRD (S/P/Bld) [Vol rate/Area] 14 ml/min/1.73sqm Invalid Interpretation Code Chemistry S GFR/1.73 sq M.predicted among non-blacks MDRD (S/P/Bld) [Vol rate/Area] 12 ml/min/1.73sqm Invalid Interpretation Code Chemistry S Glucose [Mass/Vol] 189 mg/dL Invalid Interpretation Code 82 - 115 mg/dL ADM SS Hematocrit (Bld) [Volume fraction] 22.5 % Invalid Interpretation Code 34.0 - 46.0 % Workflow SS Hemoglobin (Bld) [Mass/Vol] 7.5 G/dL Invalid Interpretation Code 12.0 - 16.0 G/dL AH Workflow SS Hypochromia Ql (Bld) 1+ *NA* (03/18/22 10:38 AM) Invalid Interpretation Code Workflow SS Lymphocytes (Bld) [#/Vol] 0.5 103/mcL Invalid Interpretation Code 0.9 - 4.3 10^3/mcL Workflow SS Lymphocytes/100 WBC (Bld) 4.0 % Invalid Interpretation Code 20.0 - 40.0 % Workflow SS MCH (RBC) [Entitic mass] 29.8 pg Invalid Interpretation Code 27.0 - 33.0 pg AH Workflow SS MCHC 33.2 G/dL Invalid Interpretation Code 32.0 - 36.0 G/dL AH Workflow SS MCV (RBC) [Entitic vol] 89.8 fL Invalid Interpretation Code 80.0 - 99.0 fL AH Workflow SS Metamyelocytes/100 WBC (Bld) 3.0 % Invalid Interpretation Code AH Workflow SS Monocytes (Bld) [#/Vol] 0.1 103/mcL Invalid Interpretation Code 0.1 - 1.4 10^3/mcL AH Workflow SS Monocytes/100 WBC (Bld) 1.0 % Invalid Interpretation Code 2.0 - 13.0 % AH Workflow SS Myelocytes/100 WBC (Bld) 1.0 % Invalid Interpretation Code AH Workflow SS Neutrophils (Bld) [#/Vol] 10.1 103/mcL Invalid Interpretation Code 2.3 - 8.1 10^3/mcL AH Workflow SS Neutrophils/100 WBC (Bld) 90.0 % Invalid Interpretation Code 50.0 - 75.0 % AH Workflow SS Nucleated RBC 0.0 /100 WBC Invalid Interpretation Code AH Workflow SS Platelet mean volume (Bld) [Entitic vol] 8.7 fL Invalid Interpretation Code 6.6 - 10.5 fL AH Workflow SS Platelets (Bld) [#/Vol] 168 103/mcL Invalid Interpretation Code 150 - 450 10^3/mcL AH Workflow SS Platelets LM Ql (Bld) Normal *NA* (03/18/22 10:38 AM) Invalid Interpretation Code AH Workflow SS Poikilocytosis LM Ql (Bld) 1+ *NA* (03/18/22 10:38 AM) Invalid Interpretation Code AH Workflow SS Potassium [Moles/Vol] 5.0 mmol/L Invalid Interpretation Code 3.5 - 5.0 mEq/L AH ADM SS RBC (Bld) [#/Vol] 2.51 106/mcL Invalid Interpretation Code 4.10 - 5.30 10^6/mcL AH Workflow SS Sodium [Moles/Vol] 132 mmol/L Invalid Interpretation Code 136 - 145 mEq/L AH ADM SS Stomatocytes 1+ *NA* (03/18/22 10:38 AM) Invalid Interpretation Code AH Workflow SS Urea nitrogen [Mass/Vol] 70.0 mg/dL Invalid Interpretation Code 8.0 - 22.0 mg/dL AH ADM SS Urea nitrogen/Creatinine [Mass ratio] 18.9 ratio Invalid Interpretation Code 10.0 - 22.0 ratio AH ADM SS WBC (Bld) [#/Vol] 11.2 103/mcL Invalid Interpretation Code 4.5 - 10.8 10^3/mcL AH Workflow SS RBC (Product)on 03-18-2022 RBC Product Ready RBC Ready for Pickup Normal [facility] ([place]) Comment on above: Performed By: #### R BCP ####[address] [address] .Auto Diffon 03-17-2022 Basophil, Absolute 0.0 10 3/mcL Normal 0.0-0.3 [facility] ([place]) Comment on above: Performed By: #### G FR, RFP ####[address] [address] Basophils/100 WBC (Bld) 0.0 % Normal 0.0-2.5 A [facility] ([place]) Comment on above: Performed By: #### G FR, RFP ####[address] [address] Eosinophil, Absolute 0.0 10 3/mcL Normal 0.0-0.7 [facility] ([place]) Comment on above: Performed By: #### G FR, RFP ####[address] [address] Eosinophils/100 WBC (Bld) 0.0 % Normal 0.0-6.0 [facility] ([place]) Comment on above: Performed By: #### G FR, RFP ####[address] [address] Lymphocyte, Absolute 1.0 10 3/mcL Normal 0.9-4.3 [facility] ([place]) Comment on above: Performed By: #### G FR, RFP ####[address] [address] Lymphocytes/100 WBC (Bld) 9.3 % Low 20.0-40.0 [facility] ([place]) Comment on above: Performed By: #### G FR, RFP ####[address] [address] Monocyte, Absolute 0.5 10 3/mcL Normal 0.1-1.4 [facility] ([place]) Comment on above: Performed By: #### G FR, RFP ####[address] [address] Monocytes/100 WBC (Bld) 4.8 % Normal 2.0-13.0 A [facility] ([place]) Comment on above: Performed By: #### G FR, RFP ####[place] [address] [place] [address] Neutrophils/100 WBC (Bld) 85.9 % High 50.0-75.0 [facility] ([place]) Comment on above: Performed By: #### G FR, RFP ####[place] [address] [place] [address] .GFRon 03-17-2022 GFR Non- 12 ml/min/1.73sqm Normal [facility] ([place]) Comment on above: Result Comment: GFR Population mean for , Non- Americans Ages 20-29 = 116 mL/min/1.73 sq.m. Ages 30-39 = 107 mL/min/1.73 sq.m. Ages 40-49 = 99 mL/min/1.73 sq.m. Ages 50-59 = 93 mL/min/1.73 sq.m. Ages 60-69 = 85 mL/min/1.73 sq.m. Ages 70+ = 75 mL/min/1.73 sq.m.Chronic Kidney Disease: Less than 60 mL/min/1.73 square metersEnd Stage Renal Disease: Less than 15 mL/min/1.73 square meters Performed By: #### G FR, RFP ####[address] [address] GFR 14 ml/min/1.73sqm Normal [facility] ([place]) Comment on above: Result Comment: GFR Population mean for , Non- Americans Ages 20-29 = 116 mL/min/1.73 sq.m. Ages 30-39 = 107 mL/min/1.73 sq.m. Ages 40-49 = 99 mL/min/1.73 sq.m. Ages 50-59 = 93 mL/min/1.73 sq.m. Ages 60-69 = 85 mL/min/1.73 sq.m. Ages 70+ = 75 mL/min/1.73 sq.m.Chronic Kidney Disease: Less than 60 mL/min/1.73 square metersEnd Stage Renal Disease: Less than 15 mL/min/1.73 square meters Performed By: #### G FR, RFP ####[place] [address] .NEUABSon 03-17-2022 Neutrophil, Absolute 9.2 10 3/mcL High 2.3-8.1 [facility] ([place]) Comment on above: Performed By: #### Kenna BELL, RFP ####[place] [address] CBCon 03-17-2022 Erythrocyte distribution width (RBC) [Ratio] 15.3 % Normal 11.5-15.5 [facility] ([place]) Comment on above: Performed By: #### Kenna BELL, RFP ####[place] [address] Hematocrit (Bld) [Volume fraction] 22.6 % Low 34.0-46.0 [facility] ([place]) Comment on above: Performed By: #### Kenna BELL, RFP ####[place] [address] Hgb 7.5 G/dL Low 12.0-16.0 [facility] ([place]) Comment on above: Performed By: #### Kenna BELL, RFP ####[place] [address] MCH (RBC) [Entitic mass] 29.6 pg Normal 27.0-33.0 [facility] ([place]) Comment on above: Performed By: #### Kenna BELL, RFP ####[place] [address] MCHC 33.0 G/dL Normal 32.0-36.0 [facility] ([place]) Comment on above: Performed By: #### Kenna BELL, RFP ####[place] [address] MCV (RBC) [Entitic vol] 89.8 fL Normal 80.0-99.0 A [facility] ([place]) Comment on above: Performed By: #### Kenna BELL, RFP ####[place] [address] Platelet 171 10 3/mcL Normal 150-450 [facility] ([place]) Comment on above: Performed By: #### G FR, RFP ####[facility] [place] [address] Platelet mean volume (Bld) [Entitic vol] 8.3 fL Normal 6.6-10.5 [facility] ([place]) Comment on above: Performed By: #### G FR, RFP ####[facility] [place] [address] RBC 2.52 10 6/mcL Low 4.10-5.30 [facility] ([place]) Comment on above: Performed By: #### G FR, RFP ####[facility] [place] [address] WBC 10.7 10 3/mcL Normal 4.5-10.8 [facility] ([place]) Comment on above: Performed By: #### G FR, RFP ####[facility] [place] [address] LABORATORYOrdered By: SYSTEM SYSTEM on 03-17-2022 Albumin BCP dye [Mass/Vol] 2.0 G/dL Invalid Interpretation Code 3.2 - 4.8 G/dL ADM SS Basophils (Bld) [#/Vol] 0.0 103/mcL Invalid Interpretation Code 0.0 - 0.3 10^3/mcL Workflow SS Basophils/100 WBC (Bld) 0.0 % Invalid Interpretation Code 0.0 - 2.5 % Workflow SS Calcium [Mass/Vol] 9.0 mg/dL Invalid Interpretation Code 8.7 - 10.4 mg/dL ADM SS Chloride [Moles/Vol] 101 mmol/L Invalid Interpretation Code 98 - 110 mEq/L ADM SS CO2 [Moles/Vol] 26 mmol/L Invalid Interpretation Code 22 - 32 mEq/L ADM SS Creatinine [Mass/Vol] 3.68 mg/dL Invalid Interpretation Code 0.50 - 1.20 mg/dL ADM SS Electrolyte Balance 7.0 mEq/L Invalid Interpretation Code 4.0 - 15.0 mEq/L ADM SS Eosinophils (Bld) [#/Vol] 0.0 103/mcL Invalid Interpretation Code 0.0 - 0.7 10^3/mcL Workflow SS Eosinophils/100 WBC (Bld) 0.0 % Invalid Interpretation Code 0.0 - 6.0 % AH Workflow SS Erythrocyte distribution width (RBC) [Ratio] 15.3 % Invalid Interpretation Code 11.5 - 15.5 % AH Workflow SS GFR/1.73 sq M.predicted among blacks MDRD (S/P/Bld) [Vol rate/Area] 14 ml/min/1.73sqm Invalid Interpretation Code Chemistry S GFR/1.73 sq M.predicted among non-blacks MDRD (S/P/Bld) [Vol rate/Area] 12 ml/min/1.73sqm Invalid Interpretation Code Chemistry S Glucose [Mass/Vol] 204 mg/dL Invalid Interpretation Code 82 - 115 mg/dL ADM SS Hematocrit (Bld) [Volume fraction] 22.6 % Invalid Interpretation Code 34.0 - 46.0 % AH Workflow SS Hemoglobin (Bld) [Mass/Vol] 7.5 G/dL Invalid Interpretation Code 12.0 - 16.0 G/dL AH Workflow SS Lymphocytes (Bld) [#/Vol] 1.0 103/mcL Invalid Interpretation Code 0.9 - 4.3 10^3/mcL AH Workflow SS Lymphocytes/100 WBC (Bld) 9.3 % Invalid Interpretation Code 20.0 - 40.0 % AH Workflow SS MCH (RBC) [Entitic mass] 29.6 pg Invalid Interpretation Code 27.0 - 33.0 pg AH Workflow SS MCHC 33.0 G/dL Invalid Interpretation Code 32.0 - 36.0 G/dL AH Workflow SS MCV (RBC) [Entitic vol] 89.8 fL Invalid Interpretation Code 80.0 - 99.0 fL AH Workflow SS Monocytes (Bld) [#/Vol] 0.5 103/mcL Invalid Interpretation Code 0.1 - 1.4 10^3/mcL AH Workflow SS Monocytes/100 WBC (Bld) 4.8 % Invalid Interpretation Code 2.0 - 13.0 % AH Workflow SS Neutrophils (Bld) [#/Vol] 9.2 103/mcL Invalid Interpretation Code 2.3 - 8.1 10^3/mcL AH Workflow SS Neutrophils/100 WBC (Bld) 85.9 % Invalid Interpretation Code 50.0 - 75.0 % AH Workflow SS Phosphate [Mass/Vol] 4.9 mg/dL Invalid Interpretation Code 2.4 - 5.1 mg/dL ADM SS Platelet mean volume (Bld) [Entitic vol] 8.3 fL Invalid Interpretation Code 6.6 - 10.5 fL Workflow SS Platelets (Bld) [#/Vol] 171 103/mcL Invalid Interpretation Code 150 - 450 10^3/mcL AH Workflow SS Potassium [Moles/Vol] 5.0 mmol/L Invalid Interpretation Code 3.5 - 5.0 mEq/L AH ADM SS RBC (Bld) [#/Vol] 2.52 106/mcL Invalid Interpretation Code 4.10 - 5.30 10^6/mcL AH Workflow SS Sodium [Moles/Vol] 134 mmol/L Invalid Interpretation Code 136 - 145 mEq/L AH ADM SS Urea nitrogen [Mass/Vol] 56.0 mg/dL Invalid Interpretation Code 8.0 - 22.0 mg/dL AH ADM SS Urea nitrogen/Creatinine [Mass ratio] 15.2 ratio Invalid Interpretation Code 10.0 - 22.0 ratio AH ADM SS WBC (Bld) [#/Vol] 10.7 103/mcL Invalid Interpretation Code 4.5 - 10.8 10^3/mcL Workflow SS MYCOon 03-17-2022 Mycoplasma IgM Negative Normal [facility] ([place]) Comment on above: Result Comment: INTE RPRETATION OF MYCOPLASMA IgM: Negative: IgM to M. pneumoniae Absent, or at levels below the assay limit of detection. Positive: IgM to M. pneumoniae Present. Invalid: Test results are invalid due to invalid internal control. Assay was performed in duplicate. Repeat testing is suggested if clinically indicated. Performed By: #### M YCO ####[place] [address] Mycoplasma IgG Negative Normal [facility] ([place]) Comment on above: Result Comment: INTE RPRETATION OF MYCOPLASMA IgG BY EIA: Negative: No detectable M. pneumoniae IgG antibody. Positive: Mycoplasma pneumoniae IgG antibody Detected. Equivocal: Equivocal for IgG antibodies to Mycoplasma pneumoniae. Suggest repeat testing in 10-14 days. Performed By: #### M YCO ####[place] [id number] RFPon 03-17-2022 Albumin Level 2.0 G/dL Low 3.2-4.8 [facility] ([place]) Comment on above: Performed By: #### G FR, RFP ####[place] [address] BUN/Creatinine Ratio 15.2 ratio Normal 10.0-22.0 [facility] ([place]) Comment on above: Performed By: #### Kenna FR, RFP ####[place] [address] Calcium [Mass/Vol] 9.0 mg/dL Normal 8.7-10.4 [facility] ([place]) Comment on above: Performed By: #### Kenna FR, RFP ####[place] [address] Chloride [Moles/Vol] 101 mmol/L Normal 98-110 [facility] ([place]) Comment on above: Performed By: #### G FR, RFP ####[place] [address] CO2 [Moles/Vol] 26 mmol/L Normal 22-32 [facility] ([place]) Comment on above: Performed By: #### Kenna BELL, RFP ####[place] [address] Creatinine [Mass/Vol] 3.68 mg/dL High 0.50-1.20 [facility] ([place]) Comment on above: Performed By: #### Kenna FR, RFP ####[place] [address] Electrolyte Balance 7.0 mEq/L Normal 4.0-15.0 [facility] ([place]) Comment on above: Performed By: #### G FR, RFP ####[place] [address] Glucose [Mass/Vol] 204 mg/dL High 82-115 [facility] ([place]) Comment on above: Performed By: #### G FR, RFP ####[place] [address] [place] [address] Phosphate [Mass/Vol] 4.9 mg/dL Normal 2.4-5.1 [facility] ([place]) Comment on above: Result Comment: No te - New Reference Range in effect 19 Performed By: #### G FR, RFP ####[id number] [place], [place] [address] Potassium [Moles/Vol] 5.0 mmol/L Normal 3.5-5.0 [facility] ([place]) Comment on above: Performed By: #### G , RFP ####[facility] [place] [address] Sodium [Moles/Vol] 134 mmol/L Low 136-145 [facility] ([place]) Comment on above: Performed By: #### G , RFP ####[facility] [place] [address] Urea nitrogen [Mass/Vol] 56.0 mg/dL High 8.0-22.0 [facility] ([place]) Comment on above: Performed By: #### G , RFP ####[place] [address] [place] [address] CT THORAX W/O CONTRASTon CT THORAX W/O CONTRAST Normal [facility] ([place]) CURon 03-16-2022 CUR Normal [facility] ([place]) LABORATORYOrdered By: Fortino Hargrove on 03-16-2022 M. pneumoniae IgM IA Ql (S) Negative (03/16/22 2:43 PM) Invalid Interpretation Code Man Viro/Sero SS Mycoplasma IgG Negative Invalid Interpretation Code Auto Viro/Sero SS LABORATORYOrdered By: Jillian Garcia on 03-16-2022 Adenovirus DNA ALBIN+non-probe Ql (Nph) Not Detected *NA* (03/16/22 1:02 PM) Invalid Interpretation Code Not Detected Auto Viro/Sero SS B. parapertussis [id number] DNA ALBIN+non-probe Ql (Nph) Not Detected *NA* (03/16/22 1:02 PM) Invalid Interpretation Code Not Detected AH Auto Viro/Sero SS B. pertussis toxin promoter region ALBIN+non-probe Ql (Nph) Not Detected *NA* (03/16/22 1:02 PM) Invalid Interpretation Code Not Detected Auto Viro/Sero SS C. pneumoniae DNA ALBIN+non-probe Ql (Nph) Not Detected *NA* (03/16/22 1:02 PM) Invalid Interpretation Code Not Detected Auto Viro/Sero SS FLUAV RNA ALBIN+non-probe Ql (Nph) Not Detected *NA* (03/16/22 1:02 PM) Invalid Interpretation Code Not Detected AH Auto Viro/Sero SS FLUBV RNA ALBIN+non-probe Ql (Nph) Not Detected *NA* (03/16/22 1:02 PM) Invalid Interpretation Code Not Detected AH Auto Viro/Sero SS hMPV RNA ALBIN+non-probe Ql (Nph) Not Detected *NA* (03/16/22 1:02 PM) Invalid Interpretation Code Not Detected AH Auto Viro/Sero SS M. pneumoniae DNA ALBIN+non-probe Ql (Nph) Not Detected *NA* (03/16/22 1:02 PM) Invalid Interpretation Code Not Detected AH Auto Viro/Sero SS Parainfluenza virus 1 RNA ALBIN+non-probe Ql (Nph) Not Detected *NA* (03/16/22 1:02 PM) Invalid Interpretation Code Not Detected AH Auto Viro/Sero SS Parainfluenza virus 2 RNA ALBIN+non-probe Ql (Nph) Not Detected *NA* (03/16/22 1:02 PM) Invalid Interpretation Code Not Detected AH Auto Viro/Sero SS Parainfluenza virus 3 RNA ALBIN+non-probe Ql (Nph) Not Detected *NA* (03/16/22 1:02 PM) Invalid Interpretation Code Not Detected AH Auto Viro/Sero SS Parainfluenza virus 4 RNA ALBIN+non-probe Ql (Nph) Not Detected *NA* (03/16/22 1:02 PM) Invalid Interpretation Code Not Detected AH Auto Viro/Sero SS Rhinovirus+Enterovirus RNA ALBIN+non-probe Ql (Nph) Not Detected *NA* (03/16/22 1:02 PM) Invalid Interpretation Code Not Detected AH Auto Viro/Sero SS RSV RNA ALBIN+non-probe Ql (Nph) Not Detected *NA* (03/16/22 1:02 PM) Invalid Interpretation Code Not Detected AH Auto Viro/Sero SS SARS-CoV-2 (COVID-19) RNA ALBIN+probe Ql (Resp) Not Detected *NA* (03/16/22 1:02 PM) Invalid Interpretation Code Not Detected AH Auto Viro/Sero SS LUAon 03-16-2022 [facility] ([place]) No Panel Informationon 03-16 Legionella Urine Ag Presumptive negative for L. pneumophila serogroup 1 antigen in urine, suggesting no recent or current infection. Legionnaire's disease cannot be ruled out since other serogroups and species may also cause disease. [facility] Work Phone: Streptococcus Pneumoniae Urine Antig Presumptive negative for pneumococcal pneumonia, suggesting no current or recent pneumococcal infection. Infection due to Strep pneumoniae cannot be ruled out since the antigen present in the sample may be below the detection limit of the test. [facility] Work Phone: Comment on above: This test has not be en evaluated on patients taking antibiotics for greater than 24 hours or on patients who have recently completed an antibiotic regimen. The accuracy of this test has not been proven in young children. Kiersten 03-16-2022 Adenovirus Not detected Normal Not Detected [facility] ([place]) Comment on above: Performed By: #### R ESCVID ####[place] [address] Bordetella Parapertussis Not detected Normal Not Detected [facility] ([place]) Comment on above: Performed By: #### R ESCVID ####[place] [address] Bordetella Pertussis Not detected Normal Not Detected [facility] ([place]) Comment on above: Performed By: #### R ESCVID ####[place] [address] Chlamydophila pneumoniae Not detected Normal Not Detected [facility] ([place]) Comment on above: Performed By: #### R ESCVID ####[place] [address] Coronavirus 229E (Not COVID-19) Not detected Normal Not Detected [facility] ([place]) Comment on above: Performed By: #### R ESCVID ####[place] [address] Coronavirus HKU1 (Not COVID-19) Not detected Normal Not Detected [facility] ([place]) Comment on above: Performed By: #### R ESCVID ####[place] [address] Coronavirus NL63 (Not COVID-19) Not detected Normal Not Detected [facility] ([place]) Comment on above: Performed By: #### R ESCVID ####[facility] [place] [address] Coronavirus OC43 (Not COVID-19) Not detected Normal Not Detected [facility] ([place]) Comment on above: Performed By: #### R ESCVID ####[facility] [place] [address] Human Metapneumovirus Not detected Normal Not Detected [facility] ([place]) Comment on above: Performed By: #### R ESCVID ####[facility] [place] [address] Influenza A Not detected Normal Not Detected [facility] ([place]) Comment on above: Performed By: #### R ESCVID ####[place] [address] Influenza B Not detected Normal Not Detected [facility] ([place]) Comment on above: Performed By: #### R ESCVID ####[place] [address] Mycoplasma pneumoniae Not detected Normal Not Detected [facility] ([place]) Comment on above: Performed By: #### R ESCVID ####[facility] [place] [address] Parainfluenza 1 Not detected Normal Not Detected [facility] ([place]) Comment on above: Performed By: #### R ESCVID ####[facility] [place] [address] Parainfluenza 2 Not detected Normal Not Detected [facility] ([place]) Comment on above: Performed By: #### R ESCVID ####[facility] [place] [address] Parainfluenza 3 Not detected Normal Not Detected [facility] ([place]) Comment on above: Performed By: #### R ESCVID ####[facility] [place] [address] Parainfluenza 4 Not detected Normal Not Detected [facility] ([place]) Comment on above: Performed By: #### R ESCVID ####[facility] [place] [address] Respiratory Syncytial Virus Not detected Normal Not Detected [facility] ([place]) Comment on above: Performed By: #### R ESCVID ####[facility] [place] [address] Rhinovirus/Enterovirus Not detected Normal Not Detecte d [facility] ([place]) Comment on above: Performed By: #### R ESCVID ####[address] [address] SARS-CoV-2 (COVID-19) RNA ALBIN+probe Ql (Unsp spec) Not detected Normal Not Detected [facility] ([place]) Comment on above: Result Comment: This test is being used under the FDA EUA procedure. This assay has been validated in the [facility] for use with nasopharyngeal specimens in [facility]. If a non-validated specimen or test collection method was used, please interpret the results with caution, especially if the test result is negative.A positive test result for COVID-19 indicates that RNA from SARS-CoV-2 was detected, and the patient is infected with the virus and presumed to be contagious. Laboratory test results should always be considered in the context of clinical observations and epidemiological data in making a final diagnosis and patient management decisions. Patient management should follow current CDC guidelines. A negative test result for this test means that SARS-CoV-2 RNA was not present in the specimen above the limit of detection. However, a negative result does not rule out COVID-19 and should not be used as the sole basis for treatment or patient management decisions. A negative result does not exclude the possibility of COVID-19. When diagnostic testing is negative, the possibility of a false negative result should be considered in the context of a patient's recent exposures and the presence of clinical signs and symptoms consistent with COVID-19. The possibility of a false negative result should especially be considered if the patient?s recent exposures or clinical presentation indicate that COVID-19 is likely, and diagnostic tests for other causes of illness (e.g., other respiratory illness) are negative. If COVID-19 is still suspected based on exposure history together with other clinical findings, re-testing should be considered by healthcare providers in consultation with public health authorities. Performed By: #### R ESCVID ####[id number] [place], [place] [address] SPAGon 03-16-2022 SPAG Normal [place] [facility] [place] XR [place]NEE 1 OR 2 VIEWS LEFTon 03-16-2022 XR KNEE 1 OR 2 VIEWS LEFT Normal [facility] ([place]) .Auto Diffon 03-15-2022 Basophil, Absolute 0.0 10 3/mcL Normal 0.0-0.3 [facility], [facility] ([place]) Comment on above: Performed By: #### G FR, PHOS, FERR, BMP, FES ####[address] [address] Basophils/100 WBC (Bld) 0.4 % Normal 0.0-2.5 [facility] ([place]) Comment on above: Performed By: #### G FR, PHOS, FERR, BMP, FES ####[address] [address] Eosinophil, Absolute 0.1 10 3/mcL Normal 0.0-0.7 [facility] ([place]) Comment on above: Performed By: #### G FR, PHOS, FERR, BMP, FES ####[address] [address] Eosinophils/100 WBC (Bld) 1.1 % Normal 0.0-6.0 [facility] ([place]) Comment on above: Performed By: #### G FR, PHOS, FERR, BMP, FES ####[address] [address] Lymphocyte, Absolute 1.4 10 3/mcL Normal 0.9-4.3 [facility] ([place]) Comment on above: Performed By: #### G FR, PHOS, FERR, BMP, FES ####[address] [address] Lymphocytes/100 WBC (Bld) 14.6 % Low 20.0-40.0 [facility] ([place]) Comment on above: Performed By: #### G FR, PHOS, FERR, BMP, FES ####[address] [address] Monocyte, Absolute 0.7 10 3/mcL Normal 0.1-1.4 [facility], [facility] ([place]) Comment on above: Performed By: #### G FR, PHOS, FERR, BMP, FES ####[address] [address] Monocytes/100 WBC (Bld) 7.3 % Normal 2.0-13.0 [facility] ([place]) Comment on above: Performed By: #### G FR, PHOS, FERR, BMP, FES ####[address] [address] Neutrophils/100 WBC (Bld) 76.6 % High 50.0-75.0 [facility] ([place]) Comment on above: Performed By: #### G FR, PHOS, FERR, BMP, FES ####[address] [address] .GFRon 03-15-2022 GFR Non- 12 ml/min/1.73sqm Normal [facility] ([place]) Comment on above: Result Comment: GFR Population mean for , Non- Americans Ages 20-29 = 116 mL/min/1.73 sq.m. Ages 30-39 = 107 mL/min/1.73 sq.m. Ages 40-49 = 99 mL/min/1.73 sq.m. Ages 50-59 = 93 mL/min/1.73 sq.m. Ages 60-69 = 85 mL/min/1.73 sq.m. Ages 70+ = 75 mL/min/1.73 sq.m.Chronic Kidney Disease: Less than 60 mL/min/1.73 square metersEnd Stage Renal Disease: Less than 15 mL/min/1.73 square meters Performed By: #### G FR, PHOS, FERR, BMP, FES ####[address] [address] GFR 14 ml/min/1.73sqm Normal [facility] ([place]) Comment on above: Result Comment: GFR Population mean for , Non- Americans Ages 20-29 = 116 mL/min/1.73 sq.m. Ages 30-39 = 107 mL/min/1.73 sq.m. Ages 40-49 = 99 mL/min/1.73 sq.m. Ages 50-59 = 93 mL/min/1.73 sq.m. Ages 60-69 = 85 mL/min/1.73 sq.m. Ages 70+ = 75 mL/min/1.73 sq.m.Chronic Kidney Disease: Less than 60 mL/min/1.73 square metersEnd Stage Renal Disease: Less than 15 mL/min/1.73 square meters Performed By: #### G FR, PHOS, FERR, BMP, FES ####[address] [address] .MDWon 03-15-2022 Monocyte Distribution Width 19.05 Normal 0.00-20.00 [facility] ([place]) Comment on above: Result Comment: For ED adult patients suspected of sepsis, MDW<=20.0 does not rule out sepsis or risk of sepsis Performed By: #### G FR, PHOS, FERR, BMP, FES ####[place] [address] .NEUABSon 03-15-2022 Neutrophil, Absolute 7.3 10 3/mcL Normal 2.3-8.1 [facility] ([place]) Comment on above: Performed By: #### Kenna FR, PHOS, FERR, BMP, FES ####[place] [address] BMPon 03-15-2022 BUN/Creatinine Ratio 12.2 ratio Normal 10.0-22.0 [facility] ([place]) Comment on above: Performed By: #### Kenna FR, PHOS, FERR, BMP, FES ####[place] [address] Calcium [Mass/Vol] 8.7 mg/dL Normal 8.7-10.4 [facility] ([place]) Comment on above: Performed By: #### G FR, PHOS, FERR, BMP, FES ####[place] [address] Chloride [Moles/Vol] 99 mmol/L Normal 98-110 [facility] ([place]) Comment on above: Performed By: #### G FR, PHOS, FERR, BMP, FES ####[place] [address] CO2 [Moles/Vol] 25 mmol/L Normal 22-32 [facility] ([place]) Comment on above: Performed By: #### G FR, PHOS, FERR, BMP, FES ####[address] [address] Creatinine [Mass/Vol] 3.68 mg/dL High 0.50-1.20 [facility] ([place]) Comment on above: Performed By: #### G FR, PHOS, FERR, BMP, FES ####[place] [address] Electrolyte Balance 8.0 mEq/L Normal 4.0-15.0 [facility] ([place]) Comment on above: Performed By: #### G FR, PHOS, FERR, BMP, FES ####[place] [address] Glucose [Mass/Vol] 185 mg/dL High 82-115 [facility] ([place]) Comment on above: Performed By: #### G FR, PHOS, FERR, BMP, FES ####[place] [address] Potassium [Moles/Vol] 4.2 mmol/L Normal 3.5-5.0 [facility] ([place]) Comment on above: Result Comment: Spec imen slightly hemolyzed. Performed By: #### G FR, PHOS, FERR, BMP, FES ####[place] [address] Sodium [Moles/Vol] 132 mmol/L Low 136-145 [facility] ([place]) Comment on above: Performed By: #### G FR, PHOS, FERR, BMP, FES ####[place] [address] Urea nitrogen [Mass/Vol] 45.0 mg/dL High 8.0-22.0 [facility] ([place]) Comment on above: Performed By: #### G FR, PHOS, FERR, BMP, FES ####[place] [address] CBCon 03-15-2022 Erythrocyte distribution width (RBC) [Ratio] 15.8 % High 11.5-15.5 [facility] ([place]) Comment on above: Performed By: #### G FR, PHOS, FERR, BMP, FES ####[place] [address] Hematocrit (Bld) [Volume fraction] 22.0 % Low 34.0-46.0 [facility] ([place]) Comment on above: Performed By: #### G FR, PHOS, FERR, BMP, FES ####[place] [address] Hgb 7.2 G/dL Low 12.0-16.0 [facility] ([place]) Comment on above: Performed By: #### G FR, PHOS, FERR, BMP, FES ####[place] [address] MCH (RBC) [Entitic mass] 29.4 pg Normal 27.0-33.0 [facility] ([place]) Comment on above: Performed By: #### G FR, PHOS, FERR, BMP, FES ####[place] [address] MCHC 32.7 G/dL Normal 32.0-36.0 [facility] ([place]) Comment on above: Performed By: #### G FR, PHOS, FERR, BMP, FES ####[place] [address] MCV (RBC) [Entitic vol] 90.2 fL Normal 80.0-99.0 [facility] ([place]) Comment on above: Performed By: #### G FR, PHOS, FERR, BMP, FES ####[place] [address] Platelet 159 10 3/mcL Normal 150-450 [facility] ([place]) Comment on above: Performed By: #### G FR, PHOS, FERR, BMP, FES ####[place] [address] Platelet mean volume (Bld) [Entitic vol] 8.3 fL Normal 6.6-10.5 [facility] ([place]) Comment on above: Performed By: #### G FR, PHOS, FERR, BMP, FES ####[place] [address] RBC 2.44 10 6/mcL Low 4.10-5.30 [facility] ([place]) Comment on above: Performed By: #### G FR, PHOS, FERR, BMP, FES ####[place] [address] WBC 9.6 10 3/mcL Normal 4.5-10.8 [facility] ([place]) Comment on above: Performed By: #### G FR, PHOS, FERR, BMP, FES ####[place] [address] Nicolette 03-15-2022 Ferritin [Mass/Vol] 328.9 ng/mL High 8.0-252.0 [facility] ([place]) Comment on above: Performed By: #### G FR, PHOS, FERR, BMP, FES ####[place] [address] FESon 03-15-2022 Iron [Mass/Vol] 19 ug/dL Low 50-170 [facility] ([place]) Comment on above: Performed By: #### G FR, PHOS, FERR, BMP, FES ####[place] [address] Iron Sat 9 % Normal [facility] ([place]) Comment on above: Performed By: #### G FR, PHOS, FERR, BMP, FES ####[place] [address] TIBC 210 mcg/dL Low 250-500 [facility] ([place]) Comment on above: Performed By: #### G FR, PHOS, FERR, BMP, FES ####[place] [address] LABORATORYOrdered By: SYSTEM SYSTEM on 03-15-2022 Basophils (Bld) [#/Vol] 0.0 103/mcL Invalid Interpretation Code 0.0 - 0.3 10^3/mcL AH Workflow SS Basophils/100 WBC (Bld) 0.4 % Invalid Interpretation Code 0.0 - 2.5 % AH Workflow SS Eosinophils (Bld) [#/Vol] 0.1 103/mcL Invalid Interpretation Code 0.0 - 0.7 10^3/mcL AH Workflow SS Eosinophils/100 WBC (Bld) 1.1 % Invalid Interpretation Code 0.0 - 6.0 % AH Workflow SS Lymphocytes (Bld) [#/Vol] 1.4 103/mcL Invalid Interpretation Code 0.9 - 4.3 10^3/mcL AH Workflow SS Lymphocytes/100 WBC (Bld) 14.6 % Invalid Interpretation Code 20.0 - 40.0 % AH Workflow SS Monocyte distribution width Auto (Bld) [Entitic vol] 19.05 Invalid Interpretation Code 0.00 - 20.00 AH Workflow SS Comment on above: Result Comment: For ED adult patients suspected of sepsis, MDW<=20.0 does not rule out sepsis or risk of sepsis Monocytes (Bld) [#/Vol] 0.7 103/mcL Invalid Interpretation Code 0.1 - 1.4 10^3/mcL AH Workflow SS Monocytes/100 WBC (Bld) 7.3 % Invalid Interpretation Code 2.0 - 13.0 % AH Workflow SS Neutrophils (Bld) [#/Vol] 7.3 103/mcL Invalid Interpretation Code 2.3 - 8.1 10^3/mcL AH Workflow SS Neutrophils/100 WBC (Bld) 76.6 % Invalid Interpretation Code 50.0 - 75.0 % AH Workflow SS Phosphate [Mass/Vol] 5.0 mg/dL Invalid Interpretation Code 2.4 - 5.1 mg/dL ADM SS Ferritin [Mass/Vol] 328.9 ng/mL Invalid Interpretation Code 8.0 - 252.0 ng/mL ADM SS Iron [Mass/Vol] 19 ug/dL Invalid Interpretation Code 50 - 170 mcg/dL ADM SS Iron binding capacity [Mass/Vol] 210 mcg/dL Invalid Interpretation Code 250 - 500 mcg/dL ADM SS Iron saturation [Mass fraction] 9 1 Invalid Interpretation Code ADM SS PHOSon 03-15-2022 Phosphate [Mass/Vol] 5.0 mg/dL Normal 2.4-5.1 [facility] ([place]) Comment on above: Result Comment: No te - New Reference Range in effect 19 Performed By: #### G FR, PHOS, FERR, BMP, FES ####[place] [address] UAon 03-15-2022 Color (U) Yellow Normal [facility] ([place]) Comment on above: Order Comment: Strai ght cath if cant void Performed By: #### U A, UAMIC ####[place] [address] Glucose (U) [Mass/Vol] 100 mg/dL Abnormal Negative [facility] ([place]) Comment on above: Order Comment: Strai ght cath if cant void Performed By: #### U A, UAMIC ####[place] [address] Ketones Ql (U) Negative Normal Neg-Trace [facility] ([place]) Comment on above: Order Comment: Strai ght cath if cant void Performed By: #### U A, UAMIC ####[place] [address] UA Appear Clear Normal Clear [facility] ([place]) Comment on above: Order Comment: Strai ght cath if cant void Performed By: #### U A, UAMIC ####[place] [address] UA Blood Negative Normal Neg-Trace [facility] ([place]) Comment on above: Order Comment: Strai ght cath if cant void Performed By: #### U A, UAMIC ####[place] [address] UA Leuk Est Negative Normal Negative [facility] ([place]) Comment on above: Order Comment: Strai ght cath if cant void Performed By: #### U A, UAMIC ####[place] [address] UA Nitrite Negative Normal Negative [facility] ([place]) Comment on above: Order Comment: Strai ght cath if cant void Performed By: #### U A, UAMIC ####[place] [address] UA pH 6.0 Normal 5.0 - 8.0 [facility] ([place]) Comment on above: Order Comment: Strai ght cath if cant void Performed By: #### U A, UAMIC ####[place] [address] UA Protein 300 mg/dL Abnormal Negative [facility] ([place]) Comment on above: Order Comment: Strai ght cath if cant void Performed By: #### U A, UAMIC ####[place] [address] UA Spec Grav 1.010 Normal 1.006-1.029 [facility] ([place]) Comment on above: Order Comment: Strai ght cath if cant void Performed By: #### U A, UAMIC ####[place] [address] UA Specimen Type Void Normal [facility] ([place]) Comment on above: Order Comment: Strai ght cath if cant void Performed By: #### U A, UAMIC ####[place] [address] UA Urobilinogen 0.2 E.U./dL Normal 0.2-1.0 [facility] ([place]) Comment on above: Order Comment: Strai ght cath if cant void Performed By: #### U A, UAMIC ####[place] [address] Urobilinogen (U) [Mass/Vol] Negative Normal Neg-Trace [facility] ([place]) Comment on above: Order Comment: Strai ght cath if cant void Performed By: #### U A, UAMIC ####[place] [address] UAMICon 03-15-2022 UA Bacteria Trace Abnormal Negative [facility] ([place]) Comment on above: Performed By: #### U A, UAMIC ####[place] [address] UA Fine Granular Casts 0-2 Abnormal [facility] ([place]) Comment on above: Performed By: #### U A, UAMIC ####[place] [address] UA Hyal Cast 0-2 Abnormal [facility] ([place]) Comment on above: Performed By: #### U A, UAMIC ####[facility] [place] [address] UA Mucous Trace Normal [facility] ([place]) Comment on above: Performed By: #### U A, UAMIC ####[place] [address] [place] [address] UA RBC Negative Normal 0-2 [facility] ([place]) Comment on above: Performed By: #### U A, UAMIC ####[facility] [place] [address] UA Squam Epithelial Rare Normal 0-20 [facility] ([place]) Comment on above: Performed By: #### U A, UAMIC ####[place] [address] [place] [address] UA WBC 3-5 Normal 0-5 [facility] ([place]) Comment on above: Performed By: #### U A, UAMIC ####[place] [address] XR SHOULDER MINIMUM 2 VIEWS RIGHTon 03-15-2022 XR SHOULDER MINIMUM 2 VIEWS RIGHT Normal [facility] ([place]) XR WRIST MINIMUM 3 VIEWS RIG HTon 03-15-2022 XR WRIST MINIMUM 3 VIEWS RIGHT Normal [facility] ([place]) .Auto Diffon 03-14-2022 Basophil, Absolute 0.0 10 3/mcL Normal 0.0-0.3 [facility] ([place]) Comment on above: Performed By: #### C MP, PBNP, GFR, LAC, TROPHS, APTT ####[place] [address] Basophils/100 WBC (Bld) 0.3 % Normal 0.0-2.5 [facility] ([place]) Comment on above: Performed By: #### C MP, PBNP, GFR, LAC, TROPHS, APTT ####[place] [address] Eosinophil, Absolute 0.0 10 3/mcL Normal 0.0-0.7 [facility] ([place]) Comment on above: Performed By: #### C MP, PBNP, GFR, LAC, TROPHS, APTT ####[address] [address] Eosinophils/100 WBC (Bld) 0.3 % Normal 0.0-6.0 [facility] ([place]) Comment on above: Performed By: #### C MP, PBNP, GFR, LAC, TROPHS, APTT ####[address] [address] Lymphocyte, Absolute 0.6 10 3/mcL Low 0.9-4.3 [facility] ([place]) Comment on above: Performed By: #### C MP, PBNP, GFR, LAC, TROPHS, APTT ####[address] [address] Lymphocytes/100 WBC (Bld) 4.8 % Low 20.0-40.0 [facility] ([place]) Comment on above: Performed By: #### C MP, PBNP, GFR, LAC, TROPHS, APTT ####[address] [address] Monocyte, Absolute 0.4 10 3/mcL Normal 0.1-1.4 [facility] ([place]) Comment on above: Performed By: #### C MP, PBNP, GFR, LAC, TROPHS, APTT ####[address] [address] Monocytes/100 WBC (Bld) 3.4 % Normal 2.0-13.0 [facility] ([place]) Comment on above: Performed By: #### C MP, PBNP, GFR, LAC, TROPHS, APTT ####[address] [address] Neutrophils/100 WBC (Bld) 91.2 % High 50.0-75.0 [facility] ([place]) Comment on above: Performed By: #### C MP, PBNP, GFR, LAC, TROPHS, APTT ####[address] [address] .GFRon 03-14-2022 GFR 15 ml/min/1.73sqm Normal [facility] ([place]) Comment on above: Result Comment: GFR Population mean for , Non- Americans Ages 20-29 = 116 mL/min/1.73 sq.m. Ages 30-39 = 107 mL/min/1.73 sq.m. Ages 40-49 = 99 mL/min/1.73 sq.m. Ages 50-59 = 93 mL/min/1.73 sq.m. Ages 60-69 = 85 mL/min/1.73 sq.m. Ages 70+ = 75 mL/min/1.73 sq.m.Chronic Kidney Disease: Less than 60 mL/min/1.73 square metersEnd Stage Renal Disease: Less than 15 mL/min/1.73 square meters Performed By: #### C MP, PBNP, GFR, LAC, TROPHS, APTT ####[address] [address] GFR Non- 13 ml/min/1.73sqm Normal [facility] ([place]) Comment on above: Result Comment: GFR Population mean for , Non- Americans Ages 20-29 = 116 mL/min/1.73 sq.m. Ages 30-39 = 107 mL/min/1.73 sq.m. Ages 40-49 = 99 mL/min/1.73 sq.m. Ages 50-59 = 93 mL/min/1.73 sq.m. Ages 60-69 = 85 mL/min/1.73 sq.m. Ages 70+ = 75 mL/min/1.73 sq.m.Chronic Kidney Disease: Less than 60 mL/min/1.73 square metersEnd Stage Renal Disease: Less than 15 mL/min/1.73 square meters Performed By: #### C MP, PBNP, GFR, LAC, TROPHS, APTT ####[address] [address] .MDWon 03-14-2022 Monocyte Distribution Width 19.66 Normal 0.00-20.00 [facility] ([place]) Comment on above: Result Comment: For ED adult patients suspected of sepsis, MDW<=20.0 does not rule out sepsis or risk of sepsis Performed By: #### C MP, PBNP, GFR, LAC, TROPHS, APTT ####[address] [address] .NEUABSon 03-14-2022 Neutrophil, Absolute 12.2 10 3/mcL High 2.3-8.1 [facility] ([place]) Comment on above: Performed By: #### C MP, PBNP, GFR, LAC, TROPHS, APTT ####[place] [address] APTTon 03-14-2022 aPTT Coag (Bld) [Time] 20.3 s Low 25.0-35.0 [facility] ([place]) Comment on above: Result Comment: For Heparin anticoagulation therapy, the recommendedtherapeutic range is: 54-77 seconds (APTT Correlationwith Anti-Xa therapeutic range of 0.3-0.7 units/ml).PLEASE REFERENCE THE PHARMACY PROTOCOL FOR DOSING. Performed By: #### C MP, PBNP, GFR, LAC, TROPHS, APTT ####[place] [address] Heparin dose (APTT) None Normal [facility] ([place]) Comment on above: Performed By: #### C MP, PBNP, GFR, LAC, TROPHS, APTT ####[place] [address] CBCon 03-14-2022 Erythrocyte distribution width (RBC) [Ratio] 15.8 % High 11.5-15.5 [facility] ([place]) Comment on above: Performed By: #### C MP, PBNP, GFR, LAC, TROPHS, APTT ####[place] [address] Hematocrit (Bld) [Volume fraction] 27.5 % Low 34.0-46.0 [facility] ([place]) Comment on above: Performed By: #### C MP, PBNP, GFR, LAC, TROPHS, APTT ####[place] [address] Hgb 9.0 G/dL Low 12.0-16.0 [facility] ([place]) Comment on above: Performed By: #### C MP, PBNP, GFR, LAC, TROPHS, APTT ####[place] [address] MCH (RBC) [Entitic mass] 29.6 pg Normal 27.0-33.0 [facility] ([place]) Comment on above: Performed By: #### C MP, PBNP, GFR, LAC, TROPHS, APTT ####[place] [address] MCHC 32.9 G/dL Normal 32.0-36.0 [facility] ([place]) Comment on above: Performed By: #### C MP, PBNP, GFR, LAC, TROPHS, APTT ####[place] [address] MCV (RBC) [Entitic vol] 89.9 fL Normal 80.0-99.0 [facility] ([place]) Comment on above: Performed By: #### C MP, PBNP, GFR, LAC, TROPHS, APTT ####[place] [address] Platelet 163 10 3/mcL Normal 150-450 [facility] ([place]) Comment on above: Performed By: #### C MP, PBNP, GFR, LAC, TROPHS, APTT ####[place] [address] Platelet mean volume (Bld) [Entitic vol] 8.5 fL Normal 6.6-10.5 [facility] ([place]) Comment on above: Performed By: #### C MP, PBNP, GFR, LAC, TROPHS, APTT ####[place] [address] RBC 3.06 10 6/mcL Low 4.10-5.30 [facility] ([place]) Comment on above: Performed By: #### C MP, PBNP, GFR, LAC, TROPHS, APTT ####[place] [address] WBC 13.4 10 3/mcL High 4.5-10.8 [facility] ([place]) Comment on above: Performed By: #### C MP, PBNP, GFR, LAC, TROPHS, APTT ####[place] [address] CMPon 03-14-2022 Albumin Level 2.9 G/dL Low 3.2-4.8 [facility] ([place]) Comment on above: Performed By: #### C MP, PBNP, GFR, LAC, TROPHS, APTT ####[address] [address] Albumin/Globulin [Mass ratio] 0.8 {ratio} Low 0.9-1.6 [facility] ([place]) Comment on above: Performed By: #### C MP, PBNP, GFR, LAC, TROPHS, APTT ####[address] [address] ALP [Catalytic activity/Vol] 78 U/L Normal 38-126 [facility] ([place]) Comment on above: Performed By: #### C MP, PBNP, GFR, LAC, TROPHS, APTT ####[address] [address] ALT [Catalytic activity/Vol] 14 U/L Normal 10-49 [facility] ([place]) Comment on above: Performed By: #### C MP, PBNP, GFR, LAC, TROPHS, APTT ####[address] [address] AST [Catalytic activity/Vol] 22 U/L Normal 8-34 [facility] ([place]) Comment on above: Performed By: #### C MP, PBNP, GFR, LAC, TROPHS, APTT ####[place] [id number] Bili Total 0.20 mg/dL Normal 0.20-1.20 [facility] ([place]) Comment on above: Result Comment: Use of this assay is not recommended for patients undergoing treatment with eltrombopag due to the potential for falsely elevated results. Performed By: #### C MP, PBNP, GFR, LAC, TROPHS, APTT ####[address] [address] BUN/Creatinine Ratio 9.7 ratio Low 10.0-22.0 [facility] ([place]) Comment on above: Performed By: #### C MP, PBNP, GFR, LAC, TROPHS, APTT ####[address] [address] Calcium [Mass/Vol] 9.4 mg/dL Normal 8.7-10.4 [facility] ([place]) Comment on above: Performed By: #### C MP, PBNP, GFR, LAC, TROPHS, APTT ####[address] [address] Chloride [Moles/Vol] 100 mmol/L Normal 98-110 [facility] ([place]) Comment on above: Performed By: #### C MP, PBNP, GFR, LAC, TROPHS, APTT ####[address] [address] CO2 [Moles/Vol] 20 mmol/L Low 22-32 [facility] ([place]) Comment on above: Performed By: #### C MP, PBNP, GFR, LAC, TROPHS, APTT ####[place] [address] Creatinine [Mass/Vol] 3.49 mg/dL High 0.50-1.20 [facility] ([place]) Comment on above: Performed By: #### C MP, PBNP, GFR, LAC, TROPHS, APTT ####[place] [address] Electrolyte Balance 12.0 mEq/L Normal 4.0-15.0 [facility] ([place]) Comment on above: Performed By: #### C MP, PBNP, GFR, LAC, TROPHS, APTT ####[address] [address] Globulin 3.5 G/dL Normal 1.5-3.8 [facility] ([place]) Comment on above: Performed By: #### C MP, PBNP, GFR, LAC, TROPHS, APTT ####[place] [address] Glucose [Mass/Vol] 145 mg/dL High 82-115 [facility] ([place]) Comment on above: Performed By: #### C MP, PBNP, GFR, LAC, TROPHS, APTT ####[address] [address] Potassium [Moles/Vol] 4.2 mmol/L Normal 3.5-5.0 [facility] ([place]) Comment on above: Result Comment: Spec imen slightly hemolyzed. Performed By: #### C MP, PBNP, GFR, LAC, TROPHS, APTT ####[address] [address] Sodium [Moles/Vol] 132 mmol/L Low 136-145 [facility] ([place]) Comment on above: Performed By: #### C MP, PBNP, GFR, LAC, TROPHS, APTT ####[address] [address] Total Protein 6.4 G/dL Normal 5.7-8.2 [facility] ([place]) Comment on above: Result Comment: No te - New Reference Range in effect 19 Performed By: #### C MP, PBNP, GFR, LAC, TROPHS, APTT ####[address] [address] Urea nitrogen [Mass/Vol] 34.0 mg/dL High 8.0-22.0 [facility] ([place]) Comment on above: Performed By: #### C MP, PBNP, GFR, LAC, TROPHS, APTT ####[address] [address] [address] ABDOMEN/PELVIS W/O CONTRA STon 03-14-2022 CT ABDOMEN/PELVIS W/O CONTRAST Normal [facility] ([place]) LABORATORYOrdered By: Dianne Hanson on 03-14-2022 Appearance (U) Clear (03/14/22 10:50 PM) Invalid Interpretation Code Clear Auto Urine SS Bacteria LM.HPF (Urine sed) [#/Area] Trace /HPF Invalid Interpretation Code Negative/HPF AH Auto Urine SS Bilirubin Ql (U) Negative (03/14/22 10:50 PM) Invalid Interpretation Code Neg-Trace Auto Urine SS Color (U) Yellow (03/14/22 10:50 PM) Invalid Interpretation Code AH Auto Urine SS Glucose Test strip (U) [Mass/Vol] 100 mg/dL Invalid Interpretation Code Negativemg/d L AH Auto Urine SS Hemoglobin Auto test strip (U) [Mass/Vol] Negative (03/14/22 10:50 PM) Invalid Interpretation Code Neg-Trace AH Auto Urine SS Ketones Ql (U) Negative Invalid Interpretation Code Neg-Tracemg/ dL AH Auto Urine SS UA Fine Granular Casts 0-2 /LPF Invalid Interpretation Code AH Auto Urine SS UA Hyal Cast 0-2 /LPF Invalid Interpretation Code AH Auto Urine SS UA Leuk Est Negative (03/14/22 10:50 PM) Invalid Interpretation Code Negative AH Auto Urine SS UA Mucous Trace /HPF Invalid Interpretation Code AH Auto Urine SS UA Nitrite Negative (03/14/22 10:50 PM) Invalid Interpretation Code Negative AH Auto Urine SS UA pH 6.0 (03/14/22 10:50 PM) Invalid Interpretation Code 5.0 - 8.0 AH Auto Urine SS UA Protein 300 mg/dL Invalid Interpretation Code Negativemg/d L AH Auto Urine SS UA RBC Negative Invalid Interpretation Code 0-2/HPF AH Auto Urine SS UA Spec Grav 1.010 (03/14/22 10:50 PM) Invalid Interpretation Code 1.006-1.029 AH Auto Urine SS UA Specimen Type Void (03/14/22 10:50 PM) Invalid Interpretation Code AH Auto Urine SS UA Squam Epithelial Rare /HPF Invalid Interpretation Code 0-20/HPF AH Auto Urine SS UA Urobilinogen 0.2 E.U./dL Invalid Interpretation Code 0.2-1.0E.U./ dL AH Auto Urine SS WBC LM.HPF (Urine sed) [#/Area] 3-5 /HPF Invalid Interpretation Code 0-5/HPF AH Auto Urine SS LABORATORYOrdered By: Fortino Hargrove on 03-14-2022 Adenovirus DNA ALBIN+non-probe Ql (Nph) Not Detected *NA* (03/14/22 8:13 PM) Invalid Interpretation Code Not Detected AH Auto Viro/Sero SS B. parapertussis [id number] DNA ALBIN+non-probe Ql (Nph) Not Detected *NA* (03/14/22 8:13 PM) Invalid Interpretation Code Not Detected AH Auto Viro/Sero SS B. pertussis toxin promoter region ALBIN+non-probe Ql (Nph) Not Detected *NA* (03/14/22 8:13 PM) Invalid Interpretation Code Not Detected AH Auto Viro/Sero SS C. pneumoniae DNA ALBIN+non-probe Ql (Nph) Not Detected *NA* (03/14/22 8:13 PM) Invalid Interpretation Code Not Detected AH Auto Viro/Sero SS FLUAV RNA ALBIN+non-probe Ql (Nph) Not Detected *NA* (03/14/22 8:13 PM) Invalid Interpretation Code Not Detected AH Auto Viro/Sero SS FLUBV RNA ALBIN+non-probe Ql (Nph) Not Detected *NA* (03/14/22 8:13 PM) Invalid Interpretation Code Not Detected AH Auto Viro/Sero SS hMPV RNA ALBIN+non-probe Ql (Nph) Not Detected *NA* (03/14/22 8:13 PM) Invalid Interpretation Code Not Detected AH Auto Viro/Sero SS M. pneumoniae DNA ALBIN+non-probe Ql (Nph) Not Detected *NA* (03/14/22 8:13 PM) Invalid Interpretation Code Not Detected AH Auto Viro/Sero SS Parainfluenza virus 1 RNA ALBIN+non-probe Ql (Nph) Not Detected *NA* (03/14/22 8:13 PM) Invalid Interpretation Code Not Detected AH Auto Viro/Sero SS Parainfluenza virus 2 RNA ALBIN+non-probe Ql (Nph) Not Detected *NA* (03/14/22 8:13 PM) Invalid Interpretation Code Not Detected AH Auto Viro/Sero SS Parainfluenza virus 3 RNA ALBIN+non-probe Ql (Nph) Not Detected *NA* (03/14/22 8:13 PM) Invalid Interpretation Code Not Detected AH Auto Viro/Sero SS Parainfluenza virus 4 RNA ALBIN+non-probe Ql (Nph) Not Detected *NA* (03/14/22 8:13 PM) Invalid Interpretation Code Not Detected AH Auto Viro/Sero SS Rhinovirus+Enterovirus RNA ALBIN+non-probe Ql (Nph) Not Detected *NA* (03/14/22 8:13 PM) Invalid Interpretation Code Not Detected AH Auto Viro/Sero SS RSV RNA ALBIN+non-probe Ql (Nph) Not Detected *NA* (03/14/22 8:13 PM) Invalid Interpretation Code Not Detected AH Auto Viro/Sero SS SARS-CoV-2 (COVID-19) RNA ALBIN+probe Ql (Resp) Not Detected *NA* (03/14/22 8:13 PM) Invalid Interpretation Code Not Detected AH Auto Viro/Sero SS LABORATORYOrdered By: SYSTEM SYSTEM on 03-14-2022 Albumin BCP dye [Mass/Vol] 2.9 G/dL Invalid Interpretation Code 3.2 - 4.8 G/dL AH ADM SS Albumin/Globulin [Mass ratio] 0.8 {ratio} Invalid Interpretation Code 0.9 - 1.6 ratio AH ADM SS ALP [Catalytic activity/Vol] 78 U/L Invalid Interpretation Code 38 - 126 U/L AH ADM SS ALT No additional P-5'-P [Catalytic activity/Vol] 14 U/L Invalid Interpretation Code 10 - 49 U/L AH ADM SS AST [Catalytic activity/Vol] 22 U/L Invalid Interpretation Code 8 - 34 U/L AH ADM SS Basophils (Bld) [#/Vol] 0.0 103/mcL Invalid Interpretation Code 0.0 - 0.3 10^3/mcL AH Workflow SS Basophils/100 WBC (Bld) 0.3 % Invalid Interpretation Code 0.0 - 2.5 % AH Workflow SS Bilirubin [Mass/Vol] 0.20 mg/dL Invalid Interpretation Code 0.20 - 1.20 mg/dL ADM SS Eosinophils (Bld) [#/Vol] 0.0 103/mcL Invalid Interpretation Code 0.0 - 0.7 10^3/mcL AH Workflow SS Eosinophils/100 WBC (Bld) 0.3 % Invalid Interpretation Code 0.0 - 6.0 % AH Workflow SS Globulin 3.5 G/dL Invalid Interpretation Code 1.5 - 3.8 G/dL AH ADM SS Lymphocytes (Bld) [#/Vol] 0.6 103/mcL Invalid Interpretation Code 0.9 - 4.3 10^3/mcL AH Workflow SS Lymphocytes/100 WBC (Bld) 4.8 % Invalid Interpretation Code 20.0 - 40.0 % AH Workflow SS Monocyte distribution width Auto (Bld) [Entitic vol] 19.66 Invalid Interpretation Code 0.00 - 20.00 AH Workflow SS Comment on above: Result Comment: For ED adult patients suspected of sepsis, MDW<=20.0 does not rule out sepsis or risk of sepsis Monocytes (Bld) [#/Vol] 0.4 103/mcL Invalid Interpretation Code 0.1 - 1.4 10^3/mcL AH Workflow SS Monocytes/100 WBC (Bld) 3.4 % Invalid Interpretation Code 2.0 - 13.0 % Workflow SS Neutrophils (Bld) [#/Vol] 12.2 103/mcL Invalid Interpretation Code 2.3 - 8.1 10^3/mcL Workflow SS Neutrophils/100 WBC (Bld) 91.2 % Invalid Interpretation Code 50.0 - 75.0 % Workflow SS Protein [Mass/Vol] 6.4 G/dL Invalid Interpretation Code 5.7 - 8.2 G/dL ADM SS Troponin I.cardiac DL <= 0.01 ng/mL [Mass/Vol] 24.93 ng/L Invalid Interpretation Code 0.00 - 34.00 ng/L ADM SS LABORATORYOrdered By: Brittany Rodriguez on 03-14-2022 aPTT Coag (PPP) [Time] 20.3 s Invalid Interpretation Code 25.0 - 35.0 seconds AH Auto Coag SS Heparin dose (APTT) None Invalid Interpretation Code Auto Coag SS LABORATORYOrdered By: Maria L Horton on 03-14-2022 Lactate [Moles/Vol] 0.4 mmol/L Invalid Interpretation Code 0.2 - 2.0 mmol/L Auto Chem SS LABORATORYOrdered By: Yaniv Hernandez on 03-14-2022 Natriuretic peptide.B prohormone N-Terminal [Mass/Vol] 3576 pg/mL Invalid Interpretation Code 0 - 1800 pg/mL Auto Chem SS LACon 03-14-2022 Lactic Acid Lvl 0.4 mmol/L Normal 0.2-2.0 [facility] ([place]) Comment on above: Performed By: #### C MP, PBNP, GFR, LAC, TROPHS, APTT ####[place] [address] No Panel Informationon 03-14 Culture Urine No growth at 48 hours. [facility] Work Phone: Microscopic examination of blood, culture Blood Culture: No Growth at 5 days. [facility] Work Phone: PBNPon 03-14-2022 Natriuretic peptide B (Bld) [Mass/Vol] 3576 pg/mL High 0-1800 [facility] ([place]) Comment on above: Result Comment: NT-p roBNP results of less than 300 pg/mL effectivelyrules out acute congestive heart failure with 99% negative predictive value. Performed By: #### C MP, PBNP, GFR, LAC, TROPHS, APTT ####[place] [address] RESCVIDon 03-14-2022 Adenovirus Not detected Normal Not Detected [facility] ([place]) Comment on above: Performed By: #### R ESCVID ####[place] [address] Bordetella Parapertussis Not detected Normal Not Detected [facility] ([place]) Comment on above: Performed By: #### R ESCVID ####[place] [address] Bordetella Pertussis Not detected Normal Not Detected [facility] ([place]) Comment on above: Performed By: #### R ESCVID ####[place] [address] Chlamydophila pneumoniae Not detected Normal Not Detected [facility] ([place]) Comment on above: Performed By: #### R ESCVID ####[place] [address] Coronavirus 229E (Not COVID-19) Not detected Normal Not Detected [facility] ([place]) Comment on above: Performed By: #### R ESCVID ####[place] [address] Coronavirus HKU1 (Not COVID-19) Not detected Normal Not Detected [facility] ([place]) Comment on above: Performed By: #### R ESCVID ####[place] [address] Coronavirus NL63 (Not COVID-19) Not detected Normal Not Detected [facility] ([place]) Comment on above: Performed By: #### R ESCVID ####[place] [address] Coronavirus OC43 (Not COVID-19) Not detected Normal Not Detected [facility] ([place]) Comment on above: Performed By: #### R ESCVID ####[place] [address] Human Metapneumovirus Not detected Normal Not Detected [facility] ([place]) Comment on above: Performed By: #### R ESCVID ####[facility] [place] [address] Influenza A Not detected Normal Not Detected [facility] ([place]) Comment on above: Performed By: #### R ESCVID ####[facility] [place] [address] Influenza B Not detected Normal Not Detected [facility] ([place]) Comment on above: Performed By: #### R ESCVID ####[facility] [place] [address] Mycoplasma pneumoniae Not detected Normal Not Detected [facility] ([place]) Comment on above: Performed By: #### R ESCVID ####[facility] [place] [address] Parainfluenza 1 Not detected Normal Not Detected [facility] ([place]) Comment on above: Performed By: #### R ESCVID ####[place] [address] Parainfluenza 2 Not detected Normal Not Detected [facility] ([place]) Comment on above: Performed By: #### R ESCVID ####[facility] [place] [address] Parainfluenza 3 Not detected Normal Not Detected [facility] ([place]) Comment on above: Performed By: #### R ESCVID ####[facility] [place] [address] Parainfluenza 4 Not detected Normal Not Detected [facility] ([place]) Comment on above: Performed By: #### R ESCVID ####[facility] [place] [address] Respiratory Syncytial Virus Not detected Normal Not Detected [facility] ([place]) Comment on above: Performed By: #### R ESCVID ####[facility] [place] [address] Rhinovirus/Enterovirus Not detected Normal Not Detecte d [facility] ([place]) Comment on above: Performed By: #### R ESCVID ####[place] [address] [place] [address] SARS-CoV-2 (COVID-19) RNA ALBIN+probe Ql (Unsp spec) Not detected Normal Not Detected [facility] ([place]) Comment on above: Result Comment: This test is being used under the FDA EUA procedure. This assay has been validated in the [facility] for use with nasopharyngeal specimens in [facility]. If a non-validated specimen or test collection method was used, please interpret the results with caution, especially if the test result is negative.A positive test result for COVID-19 indicates that RNA from SARS-CoV-2 was detected, and the patient is infected with the virus and presumed to be contagious. Laboratory test results should always be considered in the context of clinical observations and epidemiological data in making a final diagnosis and patient management decisions. Patient management should follow current CDC guidelines. A negative test result for this test means that SARS-CoV-2 RNA was not present in the specimen above the limit of detection. However, a negative result does not rule out COVID-19 and should not be used as the sole basis for treatment or patient management decisions. A negative result does not exclude the possibility of COVID-19. When diagnostic testing is negative, the possibility of a false negative result should be considered in the context of a patient's recent exposures and the presence of clinical signs and symptoms consistent with COVID-19. The possibility of a false negative result should especially be considered if the patient?s recent exposures or clinical presentation indicate that COVID-19 is likely, and diagnostic tests for other causes of illness (e.g., other respiratory illness) are negative. If COVID-19 is still suspected based on exposure history together with other clinical findings, re-testing should be considered by healthcare providers in consultation with public health authorities. Performed By: #### R ESCVID ####[place] [address] [place] [address] [facility] 03-14-2022 Troponin I High Sensitivity 24.93 ng/L Normal 0.00-34.00 [facility] ([place]) Comment on above: Result Comment: If t he High Sensitive Troponin result is below the 99th percentile value (<45 ng/L) at the first blood draw, at least two additional blood samples should be drawn before results are interpreted as negative for AMI. Performed By: #### C MP, PBNP, GFR, LAC, TROPHS, APTT ####[place] [address] [place] [address] XR CHEST 1 VIEWon 03-14-2022 XR CHEST 1 VIEW Normal [facility] ([place]) CYTOLOGY NON-GYNon 2 Case Report Medical Cytology Rep ort Case: [id number] Authorizing Provider: Yovani Peoples MD Collected: 03/07/2022 03:15 PM Ordering Location: Urology Received: 03/07/2022 08:27 PM Pathologist: Ab Ghosh MD Specimen: URINE VOIDED [facility] Clinical History bladder cancer [facility] FINAL DIAGNOSIS A - URINE VOIDED Negative for high-grade urothelial carcinoma. Acute inflammation [facility] Gross Description A. URINE VOIDED 100 cc hazy yellow fluid. ThinPrep prepared. [facility] Performing Lab Technical component, health and human performance professor screening performed at [facility], [address] [place] [address] CLIA# [id number] Diagnostic interpretation performed at [facility], [facility] [address] CLIA# [id number] Entertainment Agent: Boston Boo M.D. [facility] UA DIP, URINE (POC)on 2021 BILIRUBIN UA (POCT) Negative Negative [facility] CLARITY UA (POCT) Clear [facility] COLOR UA (POCT) Yellow [facility] GLUCOSE UA (POCT) Negative Negative mg/dL [facility] HEMOGLOBIN/BLOOD UA (POCT) Negative Negative [facility] KETONE UA (POCT) Negative Negative mg/dL [facility] LEUKOCYTES UA (POCT) Negative Negative [facility] NITRITE UA (POCT) Negative Negative [facility] PH UA (POCT) 5.5 4.5 - 8.0 [facility] Protein Ql (U) >=300 Abnormal Negative mg/dL [facility] SPECIFIC GRAVITY UA (POCT) >=1.030 1.005 - 1.030 [facility] UROBILINOGEN UA (POCT) 0.2 E.U./dL Sivan l E.U./dL [facility] .Auto Diffon 01-24-2022 Basophil, Absolute 0.0 10 3/mcL Normal 0.0-0.3 [facility] ([place]) Comment on above: Performed By: #### G FR, ANEU, FERR, FES, CBC, RFP, ADIFF ####[address] [address] Basophils/100 WBC (Bld) 0.4 % Normal 0.0-2.5 A [facility] ([place]) Comment on above: Performed By: #### G FR, ANEU, FERR, FES, CBC, RFP, ADIFF ####[address] [address] Eosinophil, Absolute 0.3 10 3/mcL Normal 0.0-0.7 [facility] ([place]) Comment on above: Performed By: #### G FR, ANEU, FERR, FES, CBC, RFP, ADIFF ####[address] [address] Eosinophils/100 WBC (Bld) 4.2 % Normal 0.0-6.0 [facility] ([place]) Comment on above: Performed By: #### G FR, ANEU, FERR, FES, CBC, RFP, ADIFF ####[address] [address] Lymphocyte, Absolute 1.3 10 3/mcL Normal 0.9-4.3 [facility] ([place]) Comment on above: Performed By: #### G FR, ANEU, FERR, FES, CBC, RFP, ADIFF ####[address] [address] Lymphocytes/100 WBC (Bld) 17.5 % Low 20.0-40.0 [facility] ([place]) Comment on above: Performed By: #### G FR, ANEU, FERR, FES, CBC, RFP, ADIFF ####[address] [address] Monocyte, Absolute 0.6 10 3/mcL Normal 0.1-1.4 [facility] ([place]) Comment on above: Performed By: #### G FR, ANEU, FERR, FES, CBC, RFP, ADIFF ####[address] [address] Monocytes/100 WBC (Bld) 8.2 % Normal 2.0-13.0 A [facility] ([place]) Comment on above: Performed By: #### G FR, ANEU, FERR, FES, CBC, RFP, ADIFF ####[address] [address] Neutrophils/100 WBC (Bld) 69.5 % Normal 50.0-75.0 [facility] ([place]) Comment on above: Performed By: #### G FR, ANEU, FERR, FES, CBC, RFP, ADIFF ####[address] [address] .GFRon 01-24-2022 GFR Non- 11 ml/min/1.73sqm Normal [facility] ([place]) Comment on above: Result Comment: GFR Population mean for , Non- Americans Ages 20-29 = 116 mL/min/1.73 sq.m. Ages 30-39 = 107 mL/min/1.73 sq.m. Ages 40-49 = 99 mL/min/1.73 sq.m. Ages 50-59 = 93 mL/min/1.73 sq.m. Ages 60-69 = 85 mL/min/1.73 sq.m. Ages 70+ = 75 mL/min/1.73 sq.m.Chronic Kidney Disease: Less than 60 mL/min/1.73 square metersEnd Stage Renal Disease: Less than 15 mL/min/1.73 square meters Performed By: #### G FR, ANEU, FERR, FES, CBC, RFP, ADIFF ####[address] [address] GFR 14 ml/min/1.73sqm Normal [facility] ([place]) Comment on above: Result Comment: GFR Population mean for , Non- Americans Ages 20-29 = 116 mL/min/1.73 sq.m. Ages 30-39 = 107 mL/min/1.73 sq.m. Ages 40-49 = 99 mL/min/1.73 sq.m. Ages 50-59 = 93 mL/min/1.73 sq.m. Ages 60-69 = 85 mL/min/1.73 sq.m. Ages 70+ = 75 mL/min/1.73 sq.m.Chronic Kidney Disease: Less than 60 mL/min/1.73 square metersEnd Stage Renal Disease: Less than 15 mL/min/1.73 square meters Performed By: #### G FR, ANEU, FERR, FES, CBC, RFP, ADIFF ####[place] [address] .NEUABSon 01-24-2022 Neutrophil, Absolute 5.2 10 3/mcL Normal 2.3-8.1 [facility] ([place]) Comment on above: Performed By: #### G FR, ANEU, FERR, FES, CBC, RFP, ADIFF ####[place] [address] CBCon 01-24-2022 Erythrocyte distribution width (RBC) [Ratio] 15.8 % High 11.5-15.5 [facility] ([place]) Comment on above: Performed By: #### G FR, ANEU, FERR, FES, CBC, RFP, ADIFF ####[place] [address] Hematocrit (Bld) [Volume fraction] 28.3 % Low 34.0-46.0 [facility] ([place]) Comment on above: Performed By: #### G FR, ANEU, FERR, FES, CBC, RFP, ADIFF ####[place] [address] Hgb 9.3 G/dL Low 12.0-16.0 [facility] ([place]) Comment on above: Performed By: #### G FR, ANEU, FERR, FES, CBC, RFP, ADIFF ####[place] [address] MCH (RBC) [Entitic mass] 29.2 pg Normal 27.0-33.0 [facility] ([place]) Comment on above: Performed By: #### G FR, ANEU, FERR, FES, CBC, RFP, ADIFF ####[place] [address] MCHC 32.9 G/dL Normal 32.0-36.0 [facility] ([place]) Comment on above: Performed By: #### G FR, ANEU, FERR, FES, CBC, RFP, ADIFF ####[place] [address] MCV (RBC) [Entitic vol] 88.6 fL Normal 80.0-99.0 A [facility] ([place]) Comment on above: Performed By: #### G FR, ANEU, FERR, FES, CBC, RFP, ADIFF ####[place] [address] Platelet 219 10 3/mcL Normal 150-450 [facility] ([place]) Comment on above: Performed By: #### G FR, ANEU, FERR, FES, CBC, RFP, ADIFF ####[place] [address] Platelet mean volume (Bld) [Entitic vol] 8.3 fL Normal 6.6-10.5 [facility] ([place]) Comment on above: Performed By: #### G FR, ANEU, FERR, FES, CBC, RFP, ADIFF ####[place] [address] RBC 3.19 10 6/mcL Low 4.10-5.30 [facility] ([place]) Comment on above: Performed By: #### G FR, ANEU, FERR, FES, CBC, RFP, ADIFF ####[place] [address] WBC 7.5 10 3/mcL Normal 4.5-10.8 [facility] ([place]) Comment on above: Performed By: #### G FR, ANEU, FERR, FES, CBC, RFP, ADIFF ####[place] [address] Nicolette 01-24-2022 Ferritin [Mass/Vol] 589.2 ng/mL High 8.0-252.0 [facility] ([place]) Comment on above: Performed By: #### G FR, ANEU, FERR, FES, CBC, RFP, ADIFF ####[place] [address] FESon 01-24-2022 Iron [Mass/Vol] 34 ug/dL Low 50-170 [facility] ([place]) Comment on above: Performed By: #### G FR, ANEU, FERR, FES, CBC, RFP, ADIFF ####[place] [address] [place] [address] Iron Sat 14 % Normal [facility] ([place]) Comment on above: Performed By: #### G FR, ANEU, FERR, FES, CBC, RFP, ADIFF ####[facility] [place], [place] [id number] TIBC 238 mcg/dL Low 250-500 [facility] ([place]) Comment on above: Performed By: #### G FR, ANEU, FERR, FES, CBC, RFP, ADIFF ####[place] [address] [place] [address] LABORATORYOrdered By: SYSTEM SYSTEM on 01-24-2022 Albumin BCP dye [Mass/Vol] 2.3 G/dL Invalid Interpretation Code 3.2 - 4.8 G/dL ADM SS Basophil, Absolute 0.0 103/mcL Invalid Interpretation Code 0.0 - 0.3 10^3/mcL CC Workflow SS Basophils/100 WBC (Bld) 0.4 % Invalid Interpretation Code 0.0 - 2.5 % CC Workflow SS Calcium [Mass/Vol] 9.0 mg/dL Invalid Interpretation Code 8.7 - 10.4 mg/dL ADM SS Chloride [Moles/Vol] 105 mmol/L Invalid Interpretation Code 98 - 110 mEq/L ADM SS CO2 [Moles/Vol] 24 mmol/L Invalid Interpretation Code 22 - 32 mEq/L ADM SS Creatinine [Mass/Vol] 3.81 mg/dL Invalid Interpretation Code 0.50 - 1.20 mg/dL ADM SS Electrolyte Balance 6.0 mEq/L Invalid Interpretation Code 4.0 - 15.0 mEq/L ADM SS Eosinophil, Absolute 0.3 103/mcL Invalid Interpretation Code 0.0 - 0.7 10^3/mcL CC Workflow SS Eosinophils/100 WBC (Bld) 4.2 % Invalid Interpretation Code 0.0 - 6.0 % CC Workflow SS Erythrocyte distribution width (RBC) [Ratio] 15.8 % Invalid Interpretation Code 11.5 - 15.5 % CC Workflow SS Ferritin [Mass/Vol] 589.2 ng/mL Invalid Interpretation Code 8.0 - 252.0 ng/mL ADM SS GFR/1.73 sq M.predicted among blacks MDRD (S/P/Bld) [Vol rate/Area] 14 ml/min/1.73sqm Invalid Interpretation Code Chemistry S GFR/1.73 sq M.predicted among non-blacks MDRD (S/P/Bld) [Vol rate/Area] 11 ml/min/1.73sqm Invalid Interpretation Code Chemistry S Glucose [Mass/Vol] 132 mg/dL Invalid Interpretation Code 82 - 115 mg/dL ADM SS Hematocrit (Bld) [Volume fraction] 28.3 % Invalid Interpretation Code 34.0 - 46.0 % CC Workflow SS Hgb 9.3 G/dL Invalid Interpretation Code 12.0 - 16.0 G/dL CC Workflow SS Iron [Mass/Vol] 34 ug/dL Invalid Interpretation Code 50 - 170 mcg/dL ADM SS Iron binding capacity [Mass/Vol] 238 mcg/dL Invalid Interpretation Code 250 - 500 mcg/dL ADM SS Iron saturation [Mass fraction] 14 1 Invalid Interpretation Code ADM SS Lymphocyte, Absolute 1.3 103/mcL Invalid Interpretation Code 0.9 - 4.3 10^3/mcL CC Workflow SS Lymphocytes/100 WBC (Bld) 17.5 % Invalid Interpretation Code 20.0 - 40.0 % CC Workflow SS MCH (RBC) [Entitic mass] 29.2 pg Invalid Interpretation Code 27.0 - 33.0 pg CC Workflow SS MCHC 32.9 G/dL Invalid Interpretation Code 32.0 - 36.0 G/dL CC Workflow SS MCV (RBC) [Entitic vol] 88.6 fL Invalid Interpretation Code 80.0 - 99.0 fL CC Workflow SS Monocyte, Absolute 0.6 103/mcL Invalid Interpretation Code 0.1 - 1.4 10^3/mcL CC Workflow SS Monocytes/100 WBC (Bld) 8.2 % Invalid Interpretation Code 2.0 - 13.0 % CC Workflow SS Neutrophil, Absolute 5.2 103/mcL Invalid Interpretation Code 2.3 - 8.1 10^3/mcL CC Workflow SS Neutrophils/100 WBC (Bld) 69.5 % Invalid Interpretation Code 50.0 - 75.0 % CC Workflow SS Phosphate [Mass/Vol] 5.7 mg/dL Invalid Interpretation Code 2.4 - 5.1 mg/dL ADM SS Platelet 219 103/mcL Invalid Interpretation Code 150 - 450 10^3/mcL CC Workflow SS Platelet mean volume (Bld) [Entitic vol] 8.3 fL Invalid Interpretation Code 6.6 - 10.5 fL CC Workflow SS Potassium [Moles/Vol] 4.5 mmol/L Invalid Interpretation Code 3.5 - 5.0 mEq/L ADM SS RBC 3.19 106/mcL Invalid Interpretation Code 4.10 - 5.30 10^6/mcL CC Workflow SS Sodium [Moles/Vol] 135 mmol/L Invalid Interpretation Code 136 - 145 mEq/L ADM SS Urea nitrogen [Mass/Vol] 45.0 mg/dL Invalid Interpretation Code 8.0 - 22.0 mg/dL ADM SS Urea nitrogen/Creatinine [Mass ratio] 11.8 ratio Invalid Interpretation Code 10.0 - 22.0 ratio ADM SS WBC 7.5 103/mcL Invalid Interpretation Code 4.5 - 10.8 10^3/mcL CC Workflow SS RFPon 01-24-2022 Albumin Level 2.3 G/dL Low 3.2-4.8 [facility] ([place]) Comment on above: Performed By: #### G FR, ANEU, FERR, FES, CBC, RFP, ADIFF ####[address] [address] BUN/Creatinine Ratio 11.8 ratio Normal 10.0-22.0 [facility] ([place]) Comment on above: Performed By: #### G FR, ANEU, FERR, FES, CBC, RFP, ADIFF ####[address] [address] Calcium [Mass/Vol] 9.0 mg/dL Normal 8.7-10.4 [facility] ([place]) Comment on above: Performed By: #### G FR, ANEU, FERR, FES, CBC, RFP, ADIFF ####[address] [address] Chloride [Moles/Vol] 105 mmol/L Normal 98-110 [facility] ([place]) Comment on above: Performed By: #### G FR, ANEU, FERR, FES, CBC, RFP, ADIFF ####[address] [address] CO2 [Moles/Vol] 24 mmol/L Normal 22-32 [facility] ([place]) Comment on above: Performed By: #### G FR, ANEU, FERR, FES, CBC, RFP, ADIFF ####[address] [address] Creatinine [Mass/Vol] 3.81 mg/dL High 0.50-1.20 [facility] ([place]) Comment on above: Performed By: #### G FR, ANEU, FERR, FES, CBC, RFP, ADIFF ####[address] [address] Electrolyte Balance 6.0 mEq/L Normal 4.0-15.0 [facility] ([place]) Comment on above: Performed By: #### G FR, ANEU, FERR, FES, CBC, RFP, ADIFF ####[address] [address] Glucose [Mass/Vol] 132 mg/dL High 82-115 [facility] ([place]) Comment on above: Performed By: #### G FR, ANEU, FERR, FES, CBC, RFP, ADIFF ####[address] [address] Phosphate [Mass/Vol] 5.7 mg/dL High 2.4-5.1 [facility] ([place]) Comment on above: Result Comment: No te - New Reference Range in effect 19 Performed By: #### G FR, ANEU, FERR, FES, CBC, RFP, ADIFF ####[address] [address] Potassium [Moles/Vol] 4.5 mmol/L Normal 3.5-5.0 [facility] ([place]) Comment on above: Performed By: #### G FR, ANEU, FERR, FES, CBC, RFP, ADIFF ####[address] [address] Sodium [Moles/Vol] 135 mmol/L Low 136-145 [facility] ([place]) Comment on above: Performed By: #### G FR, ANEU, FERR, FES, CBC, RFP, ADIFF ####[address] [address] Urea nitrogen [Mass/Vol] 45.0 mg/dL High 8.0-22.0 [facility] ([place]) Comment on above: Performed By: #### G FR, ANEU, FERR, FES, CBC, RFP, ADIFF ####[address] [address] METPon 01-22-2022 Metanephrine, Fract Plasma 19 pg/mL Normal 12-67 [facility] ([place]) Comment on above: Result Comment: Refe rence Ranges:Hypertensive adult > or = 18 yrs old: 12-72 pg/mLNormotensive adult > or = 18 yrs old: 12-67 pg/mLNormotensive children < 18 yrs old: 10-95 pg/mLPerformed By:[place] [address] [place] [id number] Director: Boston Boo III, M.D.CLIA#: [id number] Performed By: #### R ENDAMON, PMETAN, MARVIN ####[address] [address] Normetanephrine, Fract Plasma 324 pg/mL High 18-101 [facility] ([place]) Comment on above: Result Comment: Refe rence Ranges:Hypertensive adult > or = 18 yrs old: 24-145 pg/mLNormotensive adult > or = 18 yrs old: 18-101 pg/mLNormotensive children < 18 yrs old: 22-83 pg/mLMethyldopa may cause false elevation of normetanephrine levels in this assay. If patient is on methyldopa, interpret results with caution.This test was developed and its performance characteristics determined by[facility] ([facility]). It has not been cleared or approved by the FDA. [facility] isregulated under CLIA as qualified to perform high-complexity testing. This testis used for clinical purposes. It should not be regarded as investigational orfor research.Performed By:[place] [address], [place] [address]Vsq Director: Boston Boo III, M.D.CLIA#: [id number] Performed By: #### R ENIND, PMETAN, MARVIN ####[address] [address] .Auto Diffon 01-18-2022 Basophil, Absolute 0.0 10 3/mcL Normal 0.0-0.3 [facility] ([place]) Comment on above: Performed By: #### B MP, GFR ####[address] [address] Basophils/100 WBC (Bld) 0.3 % Normal 0.0-2.5 [facility] ([place]) Comment on above: Performed By: #### B MP, GFR ####[address] [address] Eosinophil, Absolute 0.3 10 3/mcL Normal 0.0-0.7 [facility] ([place]) Comment on above: Performed By: #### B MP, GFR ####[address] [address] Eosinophils/100 WBC (Bld) 4.9 % Normal 0.0-6.0 [facility] ([place]) Comment on above: Performed By: #### B MP, GFR ####[address] [address] Lymphocyte, Absolute 1.4 10 3/mcL Normal 0.9-4.3 [facility] ([place]) Comment on above: Performed By: #### B MP, GFR ####[address] [address] Lymphocytes/100 WBC (Bld) 19.1 % Low 20.0-40.0 [facility] ([place]) Comment on above: Performed By: #### B MP, GFR ####[address] [address] Monocyte, Absolute 0.5 10 3/mcL Normal 0.1-1.4 [facility] ([place]) Comment on above: Performed By: #### B MP, GFR ####[address] [address] Monocytes/100 WBC (Bld) 7.3 % Normal 2.0-13.0 [facility] ([place]) Comment on above: Performed By: #### B MP, GFR ####[address] [address] Neutrophils/100 WBC (Bld) 68.4 % Normal 50.0-75.0 [facility] ([place]) Comment on above: Performed By: #### B MP, GFR ####[address] [address] .GFRon 01-18-2022 GFR 13 ml/min/1.73sqm Normal [facility] ([place]) Comment on above: Result Comment: GFR Population mean for , Non- Americans Ages 20-29 = 116 mL/min/1.73 sq.m. Ages 30-39 = 107 mL/min/1.73 sq.m. Ages 40-49 = 99 mL/min/1.73 sq.m. Ages 50-59 = 93 mL/min/1.73 sq.m. Ages 60-69 = 85 mL/min/1.73 sq.m. Ages 70+ = 75 mL/min/1.73 sq.m.Chronic Kidney Disease: Less than 60 mL/min/1.73 square metersEnd Stage Renal Disease: Less than 15 mL/min/1.73 square meters Performed By: #### B MP, GFR ####[address] [address] GFR Non- 11 ml/min/1.73sqm Normal [facility] ([place]) Comment on above: Result Comment: GFR Population mean for , Non- Americans Ages 20-29 = 116 mL/min/1.73 sq.m. Ages 30-39 = 107 mL/min/1.73 sq.m. Ages 40-49 = 99 mL/min/1.73 sq.m. Ages 50-59 = 93 mL/min/1.73 sq.m. Ages 60-69 = 85 mL/min/1.73 sq.m. Ages 70+ = 75 mL/min/1.73 sq.m.Chronic Kidney Disease: Less than 60 mL/min/1.73 square metersEnd Stage Renal Disease: Less than 15 mL/min/1.73 square meters Performed By: #### B MP, GFR ####[address] [place], [place] [address] .NEUABSon 01-18-2022 Neutrophil, Absolute 4.9 10 3/mcL Normal 2.3-8.1 [facility] ([place]) Comment on above: Performed By: #### B MP, GFR ####[address] [address] ALDOSon 01-18-2022 Aldosterone 14.6 ng/dL Normal 0.0-<35.4 [facility] ([place]) Comment on above: Result Comment: The reference interval for serum/plasma aldosterone is based on a normal sodium intake and upright position. High sodium intake may suppress aldosterone and low sodium intake may increase aldosterone.The supine reference interval is <23.7 ng/dL.A ratio of aldosterone in ng/dL to direct renin in pg/mL greater than or equal to 3.8 is a positive screening test result for primary aldosteronism, when aldosterone is greater than or equal to 15 ng/dL.Performed By:[facility] [place], [place] [address]Qax Director: KHANH Velasquez III#: [id number] Performed By: #### R MYKEL BAR, MARVIN ####[place] [address] BMPon 01-18-2022 BUN/Creatinine Ratio 10.5 ratio Normal 10.0-22.0 [facility] ([place]) Comment on above: Performed By: #### B MP, GFR ####[address] [address] Calcium [Mass/Vol] 8.3 mg/dL Low 8.7-10.4 [facility] ([place]) Comment on above: Performed By: #### B MP, GFR ####[address] [address] Chloride [Moles/Vol] 114 mmol/L High 98-110 [facility] ([place]) Comment on above: Performed By: #### B MP, GFR ####[address] [address] CO2 [Moles/Vol] 22 mmol/L Normal 22-32 [facility] ([place]) Comment on above: Performed By: #### B MP, GFR ####[address] [address] Creatinine [Mass/Vol] 3.91 mg/dL High 0.50-1.20 [facility] ([place]) Comment on above: Performed By: #### B MP, GFR ####[address] [address] Electrolyte Balance 6.0 mEq/L Normal 4.0-15.0 [facility] ([place]) Comment on above: Performed By: #### B MP, GFR ####[address] [address] Glucose [Mass/Vol] 72 mg/dL Low 82-115 [facility] ([place]) Comment on above: Performed By: #### B MP, GFR ####[address] [address] Potassium [Moles/Vol] 4.1 mmol/L Normal 3.5-5.0 [facility] ([place]) Comment on above: Performed By: #### B MP, GFR ####[address] [address] Sodium [Moles/Vol] 142 mmol/L Normal 136-145 [facility] ([place]) Comment on above: Performed By: #### B MP, GFR ####[address] [address] Urea nitrogen [Mass/Vol] 41.0 mg/dL High 8.0-22.0 [facility] ([place]) Comment on above: Performed By: #### B MP, GFR ####[address] [address] CBCon 01-18-2022 Erythrocyte distribution width (RBC) [Ratio] 15.2 % Normal 11.5-15.5 [facility] ([place]) Comment on above: Performed By: #### B MP, GFR ####[address] [address] Hematocrit (Bld) [Volume fraction] 24.5 % Low 34.0-46.0 [facility] ([place]) Comment on above: Performed By: #### B MP, GFR ####[place] [address] Hgb 8.0 G/dL Low 12.0-16.0 [facility] ([place]) Comment on above: Performed By: #### B MP, GFR ####[place] [address] MCH (RBC) [Entitic mass] 29.3 pg Normal 27.0-33.0 [facility] ([place]) Comment on above: Performed By: #### B MP, GFR ####[place] [address] MCHC 32.7 G/dL Normal 32.0-36.0 [facility] ([place]) Comment on above: Performed By: #### B MP, GFR ####[place] [address] MCV (RBC) [Entitic vol] 89.5 fL Normal 80.0-99.0 [facility] ([place]) Comment on above: Performed By: #### B MP, GFR ####[place] [address] Platelet 208 10 3/mcL Normal 150-450 [facility] ([place]) Comment on above: Performed By: #### B MP, GFR ####[place] [address] Platelet mean volume (Bld) [Entitic vol] 7.9 fL Normal 6.6-10.5 [facility] ([place]) Comment on above: Performed By: #### B MP, GFR ####[place] [address] RBC 2.74 10 6/mcL Low 4.10-5.30 [facility] ([place]) Comment on above: Performed By: #### B MP, GFR ####[place] [address] WBC 7.1 10 3/mcL Normal 4.5-10.8 [facility] ([place]) Comment on above: Performed By: #### B MP, GFR ####[place] [address] RENINDon 01-18-2022 Direct Renin <2.1 Low 3.6-81.6 [facility] ([place]) Comment on above: Result Comment: A ra jason of aldosterone in ng/dL to direct renin in pg/mL greater than or equal to 3.8 is a positive screening test result for primary aldosteronism, when aldosterone is greater than or equal to 15 ng/dL.The reference interval for direct renin is based on an upright position.The supine reference intervals are:Age <41 years: 3.2-33.2 pg/mLAge >=41 years: 2.5-45.1 pg/mLPerformed By:[place] [address] [place], [place] [address]Lhn Director: Boston Boo III, M.D.CLIA#: [id number] Performed By: #### MYKEL JOSEPH, MARVIN ####[place] [address] Patient Upright or Supine Unknown Normal [facility] ([place]) Comment on above: Result Comment: Perf ormed By:[address] [address]Bsv Director: Boston Boo III, M.D.CLIA#: [id number] Performed By: #### MYKEL JOSEPH, MARVIN ####[place] [address] .GFRon 01-17-2022 GFR 14 ml/min/1.73sqm Normal [facility] ([place]) Comment on above: Result Comment: GFR Population mean for , Non- Americans Ages 20-29 = 116 mL/min/1.73 sq.m. Ages 30-39 = 107 mL/min/1.73 sq.m. Ages 40-49 = 99 mL/min/1.73 sq.m. Ages 50-59 = 93 mL/min/1.73 sq.m. Ages 60-69 = 85 mL/min/1.73 sq.m. Ages 70+ = 75 mL/min/1.73 sq.m.Chronic Kidney Disease: Less than 60 mL/min/1.73 square metersEnd Stage Renal Disease: Less than 15 mL/min/1.73 square meters Performed By: #### Kenna BELL, BMP ####[address] [address] GFR Non- 12 ml/min/1.73sqm Normal [facility] ([place]) Comment on above: Result Comment: GFR Population mean for , Non- Americans Ages 20-29 = 116 mL/min/1.73 sq.m. Ages 30-39 = 107 mL/min/1.73 sq.m. Ages 40-49 = 99 mL/min/1.73 sq.m. Ages 50-59 = 93 mL/min/1.73 sq.m. Ages 60-69 = 85 mL/min/1.73 sq.m. Ages 70+ = 75 mL/min/1.73 sq.m.Chronic Kidney Disease: Less than 60 mL/min/1.73 square metersEnd Stage Renal Disease: Less than 15 mL/min/1.73 square meters Performed By: #### Kenna BELL, BMP ####[address] [address] BMPon 01-17-2022 BUN/Creatinine Ratio 11.2 ratio Normal 10.0-22.0 [facility] ([place]) Comment on above: Performed By: #### Kenna BELL, BMP ####[address] [address] Calcium [Mass/Vol] 8.4 mg/dL Low 8.7-10.4 [facility] ([place]) Comment on above: Performed By: #### Kenna BELL, BMP ####[address] [address] Chloride [Moles/Vol] 113 mmol/L High 98-110 [facility] ([place]) Comment on above: Performed By: #### Kenna BELL, BMP ####[address] [address] CO2 [Moles/Vol] 20 mmol/L Low 22-32 [facility] ([place]) Comment on above: Performed By: #### Kenna BELL, BMP ####[address] [address] Creatinine [Mass/Vol] 3.75 mg/dL High 0.50-1.20 [facility] ([place]) Comment on above: Performed By: #### Kenna BELL, BMP ####[place] [address] Electrolyte Balance 10.0 mEq/L Normal 4.0-15.0 [facility] ([place]) Comment on above: Performed By: #### Kenna BELL, BMP ####[place] [address] Glucose [Mass/Vol] 80 mg/dL Low 82-115 [facility] ([place]) Comment on above: Performed By: #### Kenna BELL, BMP ####[place] [address] Potassium [Moles/Vol] 4.1 mmol/L Normal 3.5-5.0 [facility] ([place]) Comment on above: Performed By: #### Kenna BELL, BMP ####[place] [address] Sodium [Moles/Vol] 143 mmol/L Normal 136-145 [facility] ([place]) Comment on above: Performed By: #### Kenna BELL, BMP ####[place] [address] Urea nitrogen [Mass/Vol] 42.0 mg/dL High 8.0-22.0 [facility] ([place]) Comment on above: Performed By: #### Kenna BELL, BMP ####[place] [address] .Auto Diffon 01-16-2022 Basophil, Absolute 0.0 10 3/mcL Normal 0.0-0.3 [facility] ([place]) Comment on above: Performed By: #### B MP, GFR ####[place] [address] Basophils/100 WBC (Bld) 0.7 % Normal 0.0-2.5 [facility] ([place]) Comment on above: Performed By: #### B MP, GFR ####[address] [place], [place] [address] Eosinophil, Absolute 0.4 10 3/mcL Normal 0.0-0.7 [facility] ([place]) Comment on above: Performed By: #### B MP, GFR ####[address] [address] Eosinophils/100 WBC (Bld) 5.8 % Normal 0.0-6.0 [facility] ([place]) Comment on above: Performed By: #### B MP, GFR ####[address] [address] Lymphocyte, Absolute 1.6 10 3/mcL Normal 0.9-4.3 [facility] ([place]) Comment on above: Performed By: #### B MP, GFR ####[address] [address] Lymphocytes/100 WBC (Bld) 24.8 % Normal 20.0-40.0 [facility] ([place]) Comment on above: Performed By: #### B MP, GFR ####[address] [address] Monocyte, Absolute 0.5 10 3/mcL Normal 0.1-1.4 [facility] ([place]) Comment on above: Performed By: #### B MP, GFR ####[address] [address] Monocytes/100 WBC (Bld) 7.4 % Normal 2.0-13.0 [facility] ([place]) Comment on above: Performed By: #### B MP, GFR ####[address] [address] Neutrophils/100 WBC (Bld) 61.3 % Normal 50.0-75.0 [facility] ([place]) Comment on above: Performed By: #### B MP, GFR ####[address] [address] .GFRon 01-16-2022 GFR 13 ml/min/1.73sqm Normal [facility] ([place]) Comment on above: Result Comment: GFR Population mean for , Non- Americans Ages 20-29 = 116 mL/min/1.73 sq.m. Ages 30-39 = 107 mL/min/1.73 sq.m. Ages 40-49 = 99 mL/min/1.73 sq.m. Ages 50-59 = 93 mL/min/1.73 sq.m. Ages 60-69 = 85 mL/min/1.73 sq.m. Ages 70+ = 75 mL/min/1.73 sq.m.Chronic Kidney Disease: Less than 60 mL/min/1.73 square metersEnd Stage Renal Disease: Less than 15 mL/min/1.73 square meters Performed By: #### B MP, GFR ####[address] [address] GFR Non- 11 ml/min/1.73sqm Normal [facility] ([place]) Comment on above: Result Comment: GFR Population mean for , Non- Americans Ages 20-29 = 116 mL/min/1.73 sq.m. Ages 30-39 = 107 mL/min/1.73 sq.m. Ages 40-49 = 99 mL/min/1.73 sq.m. Ages 50-59 = 93 mL/min/1.73 sq.m. Ages 60-69 = 85 mL/min/1.73 sq.m. Ages 70+ = 75 mL/min/1.73 sq.m.Chronic Kidney Disease: Less than 60 mL/min/1.73 square metersEnd Stage Renal Disease: Less than 15 mL/min/1.73 square meters Performed By: #### B MP, GFR ####[address] [address] .NEUABSon 01-16-2022 Neutrophil, Absolute 4.0 10 3/mcL Normal 2.3-8.1 [facility] ([place]) Comment on above: Performed By: #### B MP, GFR ####[address] [address] BMPon 01-16-2022 BUN/Creatinine Ratio 10.9 ratio Normal 10.0-22.0 [facility] ([place]) Comment on above: Performed By: #### B MP, GFR ####[address] [address] Calcium [Mass/Vol] 8.6 mg/dL Low 8.7-10.4 [facility] ([place]) Comment on above: Performed By: #### B MP, GFR ####[address] [address] Chloride [Moles/Vol] 110 mmol/L Normal 98-110 [facility] ([place]) Comment on above: Performed By: #### B MP, GFR ####[address] [address] CO2 [Moles/Vol] 23 mmol/L Normal 22-32 [facility] ([place]) Comment on above: Performed By: #### B MP, GFR ####[address] [address] Creatinine [Mass/Vol] 3.93 mg/dL High 0.50-1.20 [facility] ([place]) Comment on above: Performed By: #### B MP, GFR ####[address] [address] Electrolyte Balance 7.0 mEq/L Normal 4.0-15.0 [facility] ([place]) Comment on above: Performed By: #### B MP, GFR ####[address] [address] Glucose [Mass/Vol] 77 mg/dL Low 82-115 [facility] ([place]) Comment on above: Performed By: #### B MP, GFR ####[address] [address] Potassium [Moles/Vol] 3.9 mmol/L Normal 3.5-5.0 [facility] ([place]) Comment on above: Performed By: #### B MP, GFR ####[address] [address] Sodium [Moles/Vol] 140 mmol/L Normal 136-145 [facility] ([place]) Comment on above: Performed By: #### B MP, GFR ####[address] [address] Urea nitrogen [Mass/Vol] 43.0 mg/dL High 8.0-22.0 [facility] ([place]) Comment on above: Performed By: #### B MP, GFR ####[place] [address] CBCon 01-16-2022 Erythrocyte distribution width (RBC) [Ratio] 15.7 % High 11.5-15.5 [facility] ([place]) Comment on above: Performed By: #### B MP, GFR ####[place] [address] Hematocrit (Bld) [Volume fraction] 25.2 % Low 34.0-46.0 [facility] ([place]) Comment on above: Performed By: #### B MP, GFR ####[place] [address] Hgb 8.3 G/dL Low 12.0-16.0 [facility] ([place]) Comment on above: Performed By: #### B MP, GFR ####[place] [address] MCH (RBC) [Entitic mass] 29.3 pg Normal 27.0-33.0 [facility] ([place]) Comment on above: Performed By: #### B MP, GFR ####[place] [address] MCHC 33.0 G/dL Normal 32.0-36.0 [facility] ([place]) Comment on above: Performed By: #### B MP, GFR ####[place] [address] MCV (RBC) [Entitic vol] 88.9 fL Normal 80.0-99.0 [facility] ([place]) Comment on above: Performed By: #### B MP, GFR ####[place] [id number] Platelet 228 10 3/mcL Normal 150-450 [facility] ([place]) Comment on above: Performed By: #### B MP, GFR ####[place] [id number] Platelet mean volume (Bld) [Entitic vol] 7.8 fL Normal 6.6-10.5 [facility] ([place]) Comment on above: Performed By: #### B MP, GFR ####[address] [address] RBC 2.83 10 6/mcL Low 4.10-5.30 [facility] ([place]) Comment on above: Performed By: #### B MP, GFR ####[address] [address] WBC 6.5 10 3/mcL Normal 4.5-10.8 [facility] ([place]) Comment on above: Performed By: #### B MP, GFR ####[address] [address] .Auto Diffon 01-15-2022 Basophil, Absolute 0.0 10 3/mcL Normal 0.0-0.3 [facility] ([place]) Comment on above: Performed By: #### T ROPHS, PBNP, TSH, GFR, CMP ####[address] [address] Basophils/100 WBC (Bld) 0.5 % Normal 0.0-2.5 [facility] ([place]) Comment on above: Performed By: #### T ROPHS, PBNP, TSH, GFR, CMP ####[address] [address] Eosinophil, Absolute 0.3 10 3/mcL Normal 0.0-0.7 [facility] ([place]) Comment on above: Performed By: #### T ROPHS, PBNP, TSH, GFR, CMP ####[address] [address] Eosinophils/100 WBC (Bld) 4.2 % Normal 0.0-6.0 [facility] ([place]) Comment on above: Performed By: #### T ROPHS, PBNP, TSH, GFR, CMP ####[address] [address] Lymphocyte, Absolute 1.4 10 3/mcL Normal 0.9-4.3 [facility] ([place]) Comment on above: Performed By: #### T ROPHS, PBNP, TSH, GFR, CMP ####[address] [address] Lymphocytes/100 WBC (Bld) 17.9 % Low 20.0-40.0 [facility] ([place]) Comment on above: Performed By: #### T ROPHS, PBNP, TSH, GFR, CMP ####[address] [address] Monocyte, Absolute 0.6 10 3/mcL Normal 0.1-1.4 [facility] ([place]) Comment on above: Performed By: #### T ROPHS, PBNP, TSH, GFR, CMP ####[address] [address] Monocytes/100 WBC (Bld) 7.4 % Normal 2.0-13.0 [facility] ([place]) Comment on above: Performed By: #### T ROSALINA, PBNP, TSH, GFR, CMP ####[address] [address] Neutrophils/100 WBC (Bld) 70.0 % Normal 50.0-75.0 [facility] ([place]) Comment on above: Performed By: #### T ROPHS, PBNP, TSH, GFR, CMP ####[address] [address] .GFRon 01-15-2022 GFR 14 ml/min/1.73sqm Normal [facility] ([place]) Comment on above: Result Comment: GFR Population mean for , Non- Americans Ages 20-29 = 116 mL/min/1.73 sq.m. Ages 30-39 = 107 mL/min/1.73 sq.m. Ages 40-49 = 99 mL/min/1.73 sq.m. Ages 50-59 = 93 mL/min/1.73 sq.m. Ages 60-69 = 85 mL/min/1.73 sq.m. Ages 70+ = 75 mL/min/1.73 sq.m.Chronic Kidney Disease: Less than 60 mL/min/1.73 square metersEnd Stage Renal Disease: Less than 15 mL/min/1.73 square meters Performed By: #### T ROPHS, PBNP, TSH, GFR, CMP ####[address] [address] GFR Non- 11 ml/min/1.73sqm Normal [facility] ([place]) Comment on above: Result Comment: GFR Population mean for , Non- Americans Ages 20-29 = 116 mL/min/1.73 sq.m. Ages 30-39 = 107 mL/min/1.73 sq.m. Ages 40-49 = 99 mL/min/1.73 sq.m. Ages 50-59 = 93 mL/min/1.73 sq.m. Ages 60-69 = 85 mL/min/1.73 sq.m. Ages 70+ = 75 mL/min/1.73 sq.m.Chronic Kidney Disease: Less than 60 mL/min/1.73 square metersEnd Stage Renal Disease: Less than 15 mL/min/1.73 square meters Performed By: #### T ROSALINA, PBNP, TSH, GFR, CMP ####[place] [address] .NEUABSon 01-15-2022 Neutrophil, Absolute 5.6 10 3/mcL Normal 2.3-8.1 [facility] ([place]) Comment on above: Performed By: #### T ROSALINA, PBNP, TSH, GFR, CMP ####[place] [address] CBCon 01-15-2022 Erythrocyte distribution width (RBC) [Ratio] 15.5 % Normal 11.5-15.5 [facility] ([place]) Comment on above: Performed By: #### T ROSALINA, PBNP, TSH, GFR, CMP ####[place] [address] Hematocrit (Bld) [Volume fraction] 28.9 % Low 34.0-46.0 [facility] ([place]) Comment on above: Performed By: #### T ROSALINA, PBNP, TSH, GFR, CMP ####[place] [address] Hgb 9.5 G/dL Low 12.0-16.0 [facility] ([place]) Comment on above: Performed By: #### T DAMONHS, PBNP, TSH, GFR, CMP ####[place] [address] MCH (RBC) [Entitic mass] 29.5 pg Normal 27.0-33.0 [facility] ([place]) Comment on above: Performed By: #### T ROPFIORDALIZA, PBNP, TSH, GFR, CMP ####[place] [address] MCHC 32.8 G/dL Normal 32.0-36.0 [facility] ([place]) Comment on above: Performed By: #### T ROPHS, PBNP, TSH, GFR, CMP ####[place] [address] MCV (RBC) [Entitic vol] 89.8 fL Normal 80.0-99.0 [facility] ([place]) Comment on above: Performed By: #### T ROPFIORDALIZA, PBNP, TSH, GFR, CMP ####[place] [address] Platelet 270 10 3/mcL Normal 150-450 [facility] ([place]) Comment on above: Performed By: #### T ROPHS, PBNP, TSH, GFR, CMP ####[place] [address] Platelet mean volume (Bld) [Entitic vol] 7.6 fL Normal 6.6-10.5 [facility] ([place]) Comment on above: Performed By: #### T ROPFIORDALIZA, PBNP, TSH, GFR, CMP ####[place] [address] RBC 3.22 10 6/mcL Low 4.10-5.30 [facility] ([place]) Comment on above: Performed By: #### T ROPHS, PBNP, TSH, GFR, CMP ####[place] [address] WBC 8.0 10 3/mcL Normal 4.5-10.8 [facility] ([place]) Comment on above: Performed By: #### T ROPHS, PBNP, TSH, GFR, CMP ####[place] [address] CMPon 01-15-2022 Albumin Level 2.2 G/dL Low 3.2-4.8 [facility] ([place]) Comment on above: Performed By: #### T ROPHS, PBNP, TSH, GFR, CMP ####[place] [address] Albumin/Globulin [Mass ratio] 0.8 {ratio} Low 0.9-1.6 [facility] ([place]) Comment on above: Performed By: #### T ROPHS, PBNP, TSH, GFR, CMP ####[place] [address] ALP [Catalytic activity/Vol] 67 U/L Normal 38-126 [facility] ([place]) Comment on above: Performed By: #### T ROPHS, PBNP, TSH, GFR, CMP ####[place] [address] ALT [Catalytic activity/Vol] 8 U/L Low 10-49 [facility] ([place]) Comment on above: Performed By: #### T ROPHS, PBNP, TSH, GFR, CMP ####[place] [address] AST [Catalytic activity/Vol] 13 U/L Normal 8-34 [facility] ([place]) Comment on above: Performed By: #### T ROPHS, PBNP, TSH, GFR, CMP ####[place] [address] Bili Total <0.20 Normal 0.20-1.20 [facility] ([place]) Comment on above: Result Comment: Use of this assay is not recommended for patients undergoing treatment with eltrombopag due to the potential for falsely elevated results. Performed By: #### T ROPHS, PBNP, TSH, GFR, CMP ####[place] [address] BUN/Creatinine Ratio 10.4 ratio Normal 10.0-22.0 [facility] ([place]) Comment on above: Performed By: #### T ROPHS, PBNP, TSH, GFR, CMP ####[place] [address] Calcium [Mass/Vol] 9.1 mg/dL Normal 8.7-10.4 [facility] ([place]) Comment on above: Performed By: #### T ROPHS, PBNP, TSH, GFR, CMP ####[address] [address] Chloride [Moles/Vol] 106 mmol/L Normal 98-110 [facility] ([place]) Comment on above: Performed By: #### T ROPHS, PBNP, TSH, GFR, CMP ####[address] [address] CO2 [Moles/Vol] 22 mmol/L Normal 22-32 [facility] ([place]) Comment on above: Performed By: #### T ROPHS, PBNP, TSH, GFR, CMP ####[address] [address] Creatinine [Mass/Vol] 3.86 mg/dL High 0.50-1.20 [facility] ([place]) Comment on above: Performed By: #### T ROPHS, PBNP, TSH, GFR, CMP ####[place] [address] Electrolyte Balance 12.0 mEq/L Normal 4.0-15.0 [facility] ([place]) Comment on above: Performed By: #### T ROPHS, PBNP, TSH, GFR, CMP ####[address] [address] Globulin 2.9 G/dL Normal 1.5-3.8 [facility] ([place]) Comment on above: Performed By: #### T ROPHS, PBNP, TSH, GFR, CMP ####[address] [address] Glucose [Mass/Vol] 162 mg/dL High 82-115 [facility] ([place]) Comment on above: Performed By: #### T ROPHS, PBNP, TSH, GFR, CMP ####[address] [address] Potassium [Moles/Vol] 4.2 mmol/L Normal 3.5-5.0 [facility] ([place]) Comment on above: Performed By: #### T ROPHS, PBNP, TSH, GFR, CMP ####[place] [address] Sodium [Moles/Vol] 140 mmol/L Normal 136-145 [facility] ([place]) Comment on above: Performed By: #### T ROPHS, PBNP, TSH, GFR, CMP ####[place] [address] Total Protein 5.1 G/dL Low 5.7-8.2 [facility] ([place]) Comment on above: Result Comment: No te - New Reference Range in effect 19 Performed By: #### T ROPHS, PBNP, TSH, GFR, CMP ####[place] [address] Urea nitrogen [Mass/Vol] 40.0 mg/dL High 8.0-22.0 [facility] ([place]) Comment on above: Performed By: #### T ROPHS, PBNP, TSH, GFR, CMP ####[place] [address] CRURon 01-15-2022 U Creatinine 38.8 mg/dL Normal [facility] ([place]) Comment on above: Performed By: #### N AUR, CRUR ####[place] [address] Nicolette 01-15-2022 Ferritin [Mass/Vol] 175.0 ng/mL Normal 8.0-252.0 [facility] ([place]) Comment on above: Performed By: #### U TERI, FERR, FES, PTH, TSH ####[place] [address] FESon 01-15-2022 Iron [Mass/Vol] 24 ug/dL Low 50-170 [facility] ([place]) Comment on above: Performed By: #### U TERI, FERR, FES, PTH, TSH ####[place] [address] Iron Sat 10 % Normal [facility] ([place]) Comment on above: Performed By: #### U TERI, FERR, FES, PTH, TSH ####[place] [address] TIBC 243 mcg/dL Low 250-500 [facility] ([place]) Comment on above: Performed By: #### U TERI, FERR, FES, PTH, TSH ####[place] [address] MGon 01-15-2022 Magnesium [Mass/Vol] 1.7 mg/dL Normal 1.6-2.4 [facility] ([place]) Comment on above: Performed By: #### M G ####[place] [address] NAURon 01-15-2022 Sodium [Moles/Vol] 111 mmol/L Normal [facility] ([place]) Comment on above: Performed By: #### N AUR, NADINE ####[place] [address] PBNPon 01-15-2022 Natriuretic peptide B (Bld) [Mass/Vol] 3112 pg/mL High 0-1800 [facility] ([place]) Comment on above: Result Comment: NT-p roBNP results of less than 300 pg/mL effectivelyrules out acute congestive heart failure with 99% negative predictive value. Performed By: #### T ROSALINA, PBNP, TSH, GFR, CMP ####[place] [address] PTHon 01-15-2022 PTH, Intact 41.6 pg/mL Normal 18.5-88.0 [facility] ([place]) Comment on above: Performed By: #### U TERI, FERR, FES, PTH, TSH ####[place] [address] TROPHSon 01-15-2022 Troponin I High Sensitivity 19.88 ng/L Normal 0.00-34.00 [facility] ([place]) Comment on above: Result Comment: If t he High Sensitive Troponin result is below the 99th percentile value (<45 ng/L) at the first blood draw, at least two additional blood samples should be drawn before results are interpreted as negative for AMI. Performed By: #### T ROPHS, PBNP, TSH, GFR, CMP ####[place] [address] TSHon 01-15-2022 TSH 5.931 mIU/mL High 0.550-4.780 [facility] ([place]) Comment on above: Result Comment: No te - New Reference Range in effect 19 Performed By: #### U TERI, FERR, FES, PTH, TSH ####[place] [address] TSH 5.817 mIU/mL High 0.550-4.780 [facility] ([place]) Comment on above: Result Comment: No te - New Reference Range in effect 19 Performed By: #### T ROPHS, PBNP, TSH, GFR, CMP ####[place] [address] URICon 01-15-2022 Uric Acid Lvl 7.9 mg/dL High 3.1-7.8 [facility] ([place]) Comment on above: Result Comment: No te - New Reference Range in effect 19 Performed By: #### U TERI, FERR, FES, PTH, TSH ####[place] [address] US RENALon 01-15-2022 US RENAL Normal [facility] ([place]) XR CHEST 1 VIEWon 01-15-2022 XR CHEST 1 VIEW Normal [facility] ([place]) .Auto Diffon 12-27-2021 Basophil, Absolute 0.1 10 3/mcL Normal 0.0-0.3 [facility] ([place]) Comment on above: Performed By: #### R FP, FERR, GFR, FES ####[place] [address] Basophils/100 WBC (Bld) 0.7 % Normal 0.0-2.5 [facility] ([place]) Comment on above: Performed By: #### R FP, FERR, GFR, FES ####[place] [address] Eosinophil, Absolute 0.3 10 3/mcL Normal 0.0-0.7 [facility] ([place]) Comment on above: Performed By: #### R FP, FERR, GFR, FES ####[address] [address] Eosinophils/100 WBC (Bld) 4.0 % Normal 0.0-6.0 [facility] ([place]) Comment on above: Performed By: #### R FP, FERR, GFR, FES ####[address] [address] Lymphocyte, Absolute 1.4 10 3/mcL Normal 0.9-4.3 [facility] ([place]) Comment on above: Performed By: #### R FP, FERR, GFR, FES ####[address] [address] Lymphocytes/100 WBC (Bld) 17.8 % Low 20.0-40.0 [facility] ([place]) Comment on above: Performed By: #### R FP, FERR, GFR, FES ####[address] [address] Monocyte, Absolute 0.5 10 3/mcL Normal 0.1-1.4 [facility] ([place]) Comment on above: Performed By: #### R FP, FERR, GFR, FES ####[address] [address] Monocytes/100 WBC (Bld) 6.7 % Normal 2.0-13.0 [facility] ([place]) Comment on above: Performed By: #### R FP, FERR, GFR, FES ####[address] [address] Neutrophils/100 WBC (Bld) 70.8 % Normal 50.0-75.0 [facility] ([place]) Comment on above: Performed By: #### R FP, FERR, GFR, FES ####[address] [address] .GFRon 12-27-2021 GFR Non- 13 ml/min/1.73sqm Normal [facility] ([place]) Comment on above: Result Comment: GFR Population mean for , Non- Americans Ages 20-29 = 116 mL/min/1.73 sq.m. Ages 30-39 = 107 mL/min/1.73 sq.m. Ages 40-49 = 99 mL/min/1.73 sq.m. Ages 50-59 = 93 mL/min/1.73 sq.m. Ages 60-69 = 85 mL/min/1.73 sq.m. Ages 70+ = 75 mL/min/1.73 sq.m.Chronic Kidney Disease: Less than 60 mL/min/1.73 square metersEnd Stage Renal Disease: Less than 15 mL/min/1.73 square meters Performed By: #### R FP, FERR, GFR, FES ####[place] [address] GFR 16 ml/min/1.73sqm Normal [facility] ([place]) Comment on above: Result Comment: GFR Population mean for , Non- Americans Ages 20-29 = 116 mL/min/1.73 sq.m. Ages 30-39 = 107 mL/min/1.73 sq.m. Ages 40-49 = 99 mL/min/1.73 sq.m. Ages 50-59 = 93 mL/min/1.73 sq.m. Ages 60-69 = 85 mL/min/1.73 sq.m. Ages 70+ = 75 mL/min/1.73 sq.m.Chronic Kidney Disease: Less than 60 mL/min/1.73 square metersEnd Stage Renal Disease: Less than 15 mL/min/1.73 square meters Performed By: #### R FP, FERR, GFR, FES ####[place] [address] .NEUABSon 12-27-2021 Neutrophil, Absolute 5.6 10 3/mcL Normal 2.3-8.1 [facility] ([place]) Comment on above: Performed By: #### R FP, FERR, GFR, FES ####[place] [address] CBCon 12-27-2021 Erythrocyte distribution width (RBC) [Ratio] 14.2 % Normal 11.5-15.5 [facility] ([place]) Comment on above: Performed By: #### R FP, FERR, GFR, FES ####[address] [place] [address] Hematocrit (Bld) [Volume fraction] 25.1 % Low 34.0-46.0 [facility] ([place]) Comment on above: Performed By: #### R FP, FERR, GFR, FES ####[place] [address] Hgb 8.5 G/dL Low 12.0-16.0 [facility] ([place]) Comment on above: Performed By: #### R FP, FERR, GFR, FES ####[place] [address] MCH (RBC) [Entitic mass] 29.9 pg Normal 27.0-33.0 [facility] ([place]) Comment on above: Performed By: #### R FP, FERR, GFR, FES ####[place] [address] MCHC 33.9 G/dL Normal 32.0-36.0 [facility] ([place]) Comment on above: Performed By: #### R FP, FERR, GFR, FES ####[place] [address] MCV (RBC) [Entitic vol] 88.2 fL Normal 80.0-99.0 [facility] ([place]) Comment on above: Performed By: #### R FP, FERR, GFR, FES ####[place] [address] Platelet 233 10 3/mcL Normal 150-450 [facility] ([place]) Comment on above: Performed By: #### R FP, FERR, GFR, FES ####[place] [address] Platelet mean volume (Bld) [Entitic vol] 7.4 fL Normal 6.6-10.5 [facility] ([place]) Comment on above: Performed By: #### R FP, FERR, GFR, FES ####[place] [address] RBC 2.84 10 6/mcL Low 4.10-5.30 [facility] ([place]) Comment on above: Performed By: #### R FP, FERR, GFR, FES ####[place] [address] WBC 8.0 10 3/mcL Normal 4.5-10.8 [facility] ([place]) Comment on above: Performed By: #### R FP, FERR, GFR, FES ####[place] [address] Nicolette 12-27-2021 Ferritin [Mass/Vol] 356.1 ng/mL High 8.0-252.0 [facility] ([place]) Comment on above: Performed By: #### R FP, FERR, GFR, FES ####[place] [address] FESon 12-27-2021 Iron [Mass/Vol] 39 ug/dL Low 50-170 [facility] ([place]) Comment on above: Performed By: #### R FP, FERR, GFR, FES ####[place] [address] Iron Sat 15 % Normal [facility] ([place]) Comment on above: Performed By: #### R FP, FERR, GFR, FES ####[place] [address] TIBC 257 mcg/dL Normal 250-500 [facility] ([place]) Comment on above: Performed By: #### R FP, FERR, GFR, FES ####[place] [address] LABORATORYOrdered By: SYSTEM SYSTEM on 12-27-2021 Albumin BCP dye [Mass/Vol] 2.5 G/dL Invalid Interpretation Code 3.2 - 4.8 G/dL AH ADM SS Basophils (Bld) [#/Vol] 0.1 103/mcL Invalid Interpretation Code 0.0 - 0.3 10^3/mcL AH Workflow SS Basophils/100 WBC (Bld) 0.7 % Invalid Interpretation Code 0.0 - 2.5 % AH Workflow SS Calcium [Mass/Vol] 9.4 mg/dL Invalid Interpretation Code 8.7 - 10.4 mg/dL AH ADM SS Chloride [Moles/Vol] 103 mmol/L Invalid Interpretation Code 98 - 110 mEq/L AH ADM SS CO2 [Moles/Vol] 24 mmol/L Invalid Interpretation Code 22 - 32 mEq/L AH ADM SS Creatinine [Mass/Vol] 3.40 mg/dL Invalid Interpretation Code 0.50 - 1.20 mg/dL ADM SS Electrolyte Balance 9.0 mEq/L Invalid Interpretation Code 4.0 - 15.0 mEq/L ADM SS Eosinophils (Bld) [#/Vol] 0.3 103/mcL Invalid Interpretation Code 0.0 - 0.7 10^3/mcL Workflow SS Eosinophils/100 WBC (Bld) 4.0 % Invalid Interpretation Code 0.0 - 6.0 % Workflow SS Erythrocyte distribution width (RBC) [Ratio] 14.2 % Invalid Interpretation Code 11.5 - 15.5 % Workflow SS Ferritin [Mass/Vol] 356.1 ng/mL Invalid Interpretation Code 8.0 - 252.0 ng/mL ADM SS GFR/1.73 sq M.predicted among blacks MDRD (S/P/Bld) [Vol rate/Area] 16 ml/min/1.73sqm Invalid Interpretation Code ADM SS GFR/1.73 sq M.predicted among non-blacks MDRD (S/P/Bld) [Vol rate/Area] 13 ml/min/1.73sqm Invalid Interpretation Code ADM SS Glucose [Mass/Vol] 127 mg/dL Invalid Interpretation Code 82 - 115 mg/dL ADM SS Hematocrit (Bld) [Volume fraction] 25.1 % Invalid Interpretation Code 34.0 - 46.0 % Workflow SS Hemoglobin (Bld) [Mass/Vol] 8.5 G/dL Invalid Interpretation Code 12.0 - 16.0 G/dL Workflow SS Iron [Mass/Vol] 39 ug/dL Invalid Interpretation Code 50 - 170 mcg/dL ADM SS Iron binding capacity [Mass/Vol] 257 mcg/dL Invalid Interpretation Code 250 - 500 mcg/dL ADM SS Iron saturation [Mass fraction] 15 1 Invalid Interpretation Code ADM SS Lymphocytes (Bld) [#/Vol] 1.4 103/mcL Invalid Interpretation Code 0.9 - 4.3 10^3/mcL Workflow SS Lymphocytes/100 WBC (Bld) 17.8 % Invalid Interpretation Code 20.0 - 40.0 % Workflow SS MCH (RBC) [Entitic mass] 29.9 pg Invalid Interpretation Code 27.0 - 33.0 pg Workflow SS MCHC 33.9 G/dL Invalid Interpretation Code 32.0 - 36.0 G/dL AH Workflow SS MCV (RBC) [Entitic vol] 88.2 fL Invalid Interpretation Code 80.0 - 99.0 fL AH Workflow SS Monocytes (Bld) [#/Vol] 0.5 103/mcL Invalid Interpretation Code 0.1 - 1.4 10^3/mcL AH Workflow SS Monocytes/100 WBC (Bld) 6.7 % Invalid Interpretation Code 2.0 - 13.0 % AH Workflow SS Neutrophils (Bld) [#/Vol] 5.6 103/mcL Invalid Interpretation Code 2.3 - 8.1 10^3/mcL AH Workflow SS Neutrophils/100 WBC (Bld) 70.8 % Invalid Interpretation Code 50.0 - 75.0 % AH Workflow SS Phosphate [Mass/Vol] 5.2 mg/dL Invalid Interpretation Code 2.4 - 5.1 mg/dL AH ADM SS Platelet mean volume (Bld) [Entitic vol] 7.4 fL Invalid Interpretation Code 6.6 - 10.5 fL AH Workflow SS Platelets (Bld) [#/Vol] 233 103/mcL Invalid Interpretation Code 150 - 450 10^3/mcL AH Workflow SS Potassium [Moles/Vol] 4.3 mmol/L Invalid Interpretation Code 3.5 - 5.0 mEq/L AH ADM SS RBC (Bld) [#/Vol] 2.84 106/mcL Invalid Interpretation Code 4.10 - 5.30 10^6/mcL AH Workflow SS Sodium [Moles/Vol] 136 mmol/L Invalid Interpretation Code 136 - 145 mEq/L AH ADM SS Urea nitrogen [Mass/Vol] 41.0 mg/dL Invalid Interpretation Code 8.0 - 22.0 mg/dL AH ADM SS Urea nitrogen/Creatinine [Mass ratio] 12.1 ratio Invalid Interpretation Code 10.0 - 22.0 ratio AH ADM SS WBC (Bld) [#/Vol] 8.0 103/mcL Invalid Interpretation Code 4.5 - 10.8 10^3/mcL Workflow SS RFPon 12-27-2021 Albumin Level 2.5 G/dL Low 3.2-4.8 [facility] ([place]) Comment on above: Performed By: #### R FP, FERR, GFR, FES ####[address] [address] BUN/Creatinine Ratio 12.1 ratio Normal 10.0-22.0 [facility] ([place]) Comment on above: Performed By: #### R FP, FERR, GFR, FES ####[address] [address] Calcium [Mass/Vol] 9.4 mg/dL Normal 8.7-10.4 [facility] ([place]) Comment on above: Performed By: #### R FP, FERR, GFR, FES ####[address] [address] Chloride [Moles/Vol] 103 mmol/L Normal 98-110 [facility] ([place]) Comment on above: Performed By: #### R FP, FERR, GFR, FES ####[address] [address] CO2 [Moles/Vol] 24 mmol/L Normal 22-32 [facility] ([place]) Comment on above: Performed By: #### R FP, FERR, GFR, FES ####[address] [address] Creatinine [Mass/Vol] 3.40 mg/dL High 0.50-1.20 [facility] ([place]) Comment on above: Performed By: #### R FP, FERR, GFR, FES ####[address] [address] Electrolyte Balance 9.0 mEq/L Normal 4.0-15.0 [facility] ([place]) Comment on above: Performed By: #### R FP, FERR, GFR, FES ####[address] [address] Glucose [Mass/Vol] 127 mg/dL High 82-115 [facility] ([place]) Comment on above: Performed By: #### R FP, FERR, GFR, FES ####[address] [address] Phosphate [Mass/Vol] 5.2 mg/dL High 2.4-5.1 [facility] ([place]) Comment on above: Result Comment: No te - New Reference Range in effect 19 Performed By: #### R FP, FERR, GFR, FES ####[address] [address] Potassium [Moles/Vol] 4.3 mmol/L Normal 3.5-5.0 [facility] ([place]) Comment on above: Performed By: #### R FP, FERR, GFR, FES ####[address] [address] Sodium [Moles/Vol] 136 mmol/L Normal 136-145 [facility] ([place]) Comment on above: Performed By: #### R FP, FERR, GFR, FES ####[address] [address] Urea nitrogen [Mass/Vol] 41.0 mg/dL High 8.0-22.0 [facility] ([place]) Comment on above: Performed By: #### R FP, FERR, GFR, FES ####[place] [address] .GFRon 12-08-2021 GFR 18 ml/min/1.73sqm Normal [facility] ([place]) Comment on above: Result Comment: GFR Population mean for , Non- Americans Ages 20-29 = 116 mL/min/1.73 sq.m. Ages 30-39 = 107 mL/min/1.73 sq.m. Ages 40-49 = 99 mL/min/1.73 sq.m. Ages 50-59 = 93 mL/min/1.73 sq.m. Ages 60-69 = 85 mL/min/1.73 sq.m. Ages 70+ = 75 mL/min/1.73 sq.m.Chronic Kidney Disease: Less than 60 mL/min/1.73 square metersEnd Stage Renal Disease: Less than 15 mL/min/1.73 square meters Performed By: #### F ES, FERR, RFP, GFR ####[address] [address] GFR Non- 15 ml/min/1.73sqm Normal [facility] ([place]) Comment on above: Result Comment: GFR Population mean for , Non- Americans Ages 20-29 = 116 mL/min/1.73 sq.m. Ages 30-39 = 107 mL/min/1.73 sq.m. Ages 40-49 = 99 mL/min/1.73 sq.m. Ages 50-59 = 93 mL/min/1.73 sq.m. Ages 60-69 = 85 mL/min/1.73 sq.m. Ages 70+ = 75 mL/min/1.73 sq.m.Chronic Kidney Disease: Less than 60 mL/min/1.73 square metersEnd Stage Renal Disease: Less than 15 mL/min/1.73 square meters Performed By: #### F ES, FERR, RFP, GFR ####[place] [address] Nicolette 12-08-2021 Ferritin [Mass/Vol] 223.1 ng/mL Normal 8.0-252.0 [facility] ([place]) Comment on above: Performed By: #### F ES, FERR, RFP, GFR ####[place] [address] FESon 12-08-2021 Iron [Mass/Vol] 38 ug/dL Low 50-170 [facility] ([place]) Comment on above: Performed By: #### F ES, FERR, RFP, GFR ####[place] [address] Iron Sat 15 % Normal [facility] ([place]) Comment on above: Performed By: #### F ES, FERR, RFP, GFR ####[place] [address] TIBC 261 mcg/dL Normal 250-500 [facility] ([place]) Comment on above: Performed By: #### F ES, FERR, RFP, GFR ####[place] [address] HGMPon 12-08-2021 Erythrocyte distribution width (RBC) [Ratio] 14.7 % Normal 11.5-15.5 [facility] ([place]) Comment on above: Performed By: #### F ES, FERR, RFP, GFR ####[place] [address] Hematocrit (Bld) [Volume fraction] 28.1 % Low 34.0-46.0 [facility] ([place]) Comment on above: Performed By: #### F ES, FERR, RFP, GFR ####[address] [address] Hgb 9.6 G/dL Low 12.0-16.0 [facility] ([place]) Comment on above: Performed By: #### F ES, FERR, RFP, GFR ####[place] [address] MCH (RBC) [Entitic mass] 31.1 pg Normal 27.0-33.0 [facility] ([place]) Comment on above: Performed By: #### F ES, FERR, RFP, GFR ####[place] [address] MCHC 34.0 G/dL Normal 32.0-36.0 [facility] ([place]) Comment on above: Performed By: #### F ES, FERR, RFP, GFR ####[place] [address] MCV (RBC) [Entitic vol] 91.3 fL Normal 80.0-99.0 [facility] ([place]) Comment on above: Performed By: #### F ES, FERR, RFP, GFR ####[place] [address] Platelet 237 10 3/mcL Normal 150-450 [facility] ([place]) Comment on above: Performed By: #### F ES, FERR, RFP, GFR ####[place] [address] Platelet mean volume (Bld) [Entitic vol] 9.3 fL Normal 6.6-10.5 [facility] ([place]) Comment on above: Performed By: #### F ES, FERR, RFP, GFR ####[place] [address] RBC 3.08 10 6/mcL Low 4.10-5.30 [facility] ([place]) Comment on above: Performed By: #### F ES, FERR, RFP, GFR ####[place] [address] WBC 7.8 10 3/mcL Normal 4.5-10.8 [facility] ([place]) Comment on above: Performed By: #### F ES, FERR, RFP, GFR ####[place] [address] RFPon 12-08-2021 Albumin Level 2.5 G/dL Low 3.2-4.8 [facility] ([place]) Comment on above: Performed By: #### F ES, FERR, RFP, GFR ####[place] [address] BUN/Creatinine Ratio 13.8 ratio Normal 10.0-22.0 [facility] ([place]) Comment on above: Performed By: #### F ES, FERR, RFP, GFR ####[place] [address] Calcium [Mass/Vol] 9.1 mg/dL Normal 8.7-10.4 [facility] ([place]) Comment on above: Performed By: #### F ES, FERR, RFP, GFR ####[place] [address] Chloride [Moles/Vol] 109 mmol/L Normal 98-110 [facility] ([place]) Comment on above: Performed By: #### F ES, FERR, RFP, GFR ####[place] [address] CO2 [Moles/Vol] 24 mmol/L Normal 22-32 [facility] ([place]) Comment on above: Performed By: #### F ES, FERR, RFP, GFR ####[place] [address] Creatinine [Mass/Vol] 2.98 mg/dL High 0.50-1.20 [facility] ([place]) Comment on above: Performed By: #### F ES, FERR, RFP, GFR ####[place] [address] Electrolyte Balance 0.0 mEq/L Low 4.0-15.0 [facility] ([place]) Comment on above: Performed By: #### F ES, FERR, RFP, GFR ####[place] [address] Glucose [Mass/Vol] 206 mg/dL High 82-115 [facility] ([place]) Comment on above: Performed By: #### F ES, FERR, RFP, GFR ####[address] [address] Phosphate [Mass/Vol] 4.5 mg/dL Normal 2.4-5.1 [facility] ([place]) Comment on above: Result Comment: No te - New Reference Range in effect 19 Performed By: #### F ES, FERR, RFP, GFR ####[address] [address] Potassium [Moles/Vol] 4.4 mmol/L Normal 3.5-5.0 [facility] ([place]) Comment on above: Result Comment: Spec imen slightly hemolyzed. Performed By: #### F ES, FERR, RFP, GFR ####[place] [address] Sodium [Moles/Vol] 133 mmol/L Low 136-145 [facility] ([place]) Comment on above: Performed By: #### F ES, FERR, RFP, GFR ####[place] [address] Urea nitrogen [Mass/Vol] 41.0 mg/dL High 8.0-22.0 [facility] ([place]) Comment on above: Performed By: #### F ES, FERR, RFP, GFR ####[place] [address] .Auto Diffon 11-30-2021 Basophil, Absolute 0.1 10 3/mcL Normal 0.0-0.3 [facility] ([place]) Comment on above: Performed By: #### P TH, GFR, FERR, FES, RFP ####[address] [address] Basophils/100 WBC (Bld) 1.1 % Normal 0.0-2.5 [facility] ([place]) Comment on above: Performed By: #### P TH, GFR, FERR, FES, RFP ####[place] [address] Eosinophil, Absolute 0.3 10 3/mcL Normal 0.0-0.7 [facility] ([place]) Comment on above: Performed By: #### P TH, GFR, FERR, FES, RFP ####[address] [address] Eosinophils/100 WBC (Bld) 3.8 % Normal 0.0-6.0 [facility] ([place]) Comment on above: Performed By: #### P TH, GFR, FERR, FES, RFP ####[address] [address] Lymphocyte, Absolute 1.7 10 3/mcL Normal 0.9-4.3 [facility] ([place]) Comment on above: Performed By: #### P TH, GFR, FERR, FES, RFP ####[address] [address] Lymphocytes/100 WBC (Bld) 21.0 % Normal 20.0-40.0 [facility] ([place]) Comment on above: Performed By: #### P TH, GFR, FERR, FES, RFP ####[address] [address] Monocyte, Absolute 0.5 10 3/mcL Normal 0.1-1.4 [facility], later [facility] ([place]) Comment on above: Performed By: #### P TH, GFR, FERR, FES, RFP ####[address] [address] Monocytes/100 WBC (Bld) 6.5 % Normal 2.0-13.0 [facility] ([place]) Comment on above: Performed By: #### P TH, GFR, FERR, FES, RFP ####[address] [address] Neutrophils/100 WBC (Bld) 67.6 % Normal 50.0-75.0 [facility] ([place]) Comment on above: Performed By: #### P TH, GFR, FERR, FES, RFP ####[address] [address] .GFRon 11-30-2021 GFR Non- 17 ml/min/1.73sqm Normal [facility] ([place]) Comment on above: Result Comment: GFR Population mean for , Non- Americans Ages 20-29 = 116 mL/min/1.73 sq.m. Ages 30-39 = 107 mL/min/1.73 sq.m. Ages 40-49 = 99 mL/min/1.73 sq.m. Ages 50-59 = 93 mL/min/1.73 sq.m. Ages 60-69 = 85 mL/min/1.73 sq.m. Ages 70+ = 75 mL/min/1.73 sq.m.Chronic Kidney Disease: Less than 60 mL/min/1.73 square metersEnd Stage Renal Disease: Less than 15 mL/min/1.73 square meters Performed By: #### P TH, GFR, FERR, FES, RFP ####[place] [address] GFR 21 ml/min/1.73sqm Normal [facility] ([place]) Comment on above: Result Comment: GFR Population mean for , Non- Americans Ages 20-29 = 116 mL/min/1.73 sq.m. Ages 30-39 = 107 mL/min/1.73 sq.m. Ages 40-49 = 99 mL/min/1.73 sq.m. Ages 50-59 = 93 mL/min/1.73 sq.m. Ages 60-69 = 85 mL/min/1.73 sq.m. Ages 70+ = 75 mL/min/1.73 sq.m.Chronic Kidney Disease: Less than 60 mL/min/1.73 square metersEnd Stage Renal Disease: Less than 15 mL/min/1.73 square meters Performed By: #### P TH, GFR, FERR, FES, RFP ####[place] [address] .MDWon 11-30-2021 Monocyte Distribution Width Not performed Normal 0.00-20.00 [facility] ([place]) Comment on above: Result Comment: MDW testing performed only on adult ER patients between the ages of 18-89 years. Performed By: #### P TH, GFR, FERR, FES, RFP ####[place] [address] .NEUABSon 11-30-2021 Neutrophil, Absolute 5.4 10 3/mcL Normal 2.3-8.1 [facility] ([place]) Comment on above: Performed By: #### P TH, GFR, FERR, FES, RFP ####[place] [address] CBCon 11-30-2021 Erythrocyte distribution width (RBC) [Ratio] 14.9 % Normal 11.5-15.5 [facility] ([place]) Comment on above: Performed By: #### P TH, GFR, FERR, FES, RFP ####[place] [address] Hematocrit (Bld) [Volume fraction] 28.1 % Low 34.0-46.0 [facility] ([place]) Comment on above: Performed By: #### P TH, GFR, FERR, FES, RFP ####[place] [address] Hgb 9.5 G/dL Low 12.0-16.0 [facility] ([place]) Comment on above: Performed By: #### P TH, GFR, FERR, FES, RFP ####[place] [address] MCH (RBC) [Entitic mass] 30.6 pg Normal 27.0-33.0 [facility] ([place]) Comment on above: Performed By: #### P TH, GFR, FERR, FES, RFP ####[place] [address] MCHC 33.9 G/dL Normal 32.0-36.0 [facility] ([place]) Comment on above: Performed By: #### P TH, GFR, FERR, FES, RFP ####[place] [address] MCV (RBC) [Entitic vol] 90.5 fL Normal 80.0-99.0 [facility] ([place]) Comment on above: Performed By: #### P TH, GFR, FERR, FES, RFP ####[place] [address] Platelet 257 10 3/mcL Normal 150-450 [facility] ([place]) Comment on above: Performed By: #### P TH, GFR, FERR, FES, RFP ####[place] [address] Platelet mean volume (Bld) [Entitic vol] 7.5 fL Normal 6.6-10.5 [facility] ([place]) Comment on above: Performed By: #### P TH, GFR, FERR, FES, RFP ####[place] [address] RBC 3.11 10 6/mcL Low 4.10-5.30 [facility] ([place]) Comment on above: Performed By: #### P TH, GFR, FERR, FES, RFP ####[place] [address] WBC 7.9 10 3/mcL Normal 4.5-10.8 [facility] ([place]) Comment on above: Performed By: #### P TH, GFR, FERR, FES, RFP ####[place] [address] Nicolette 11-30-2021 Ferritin [Mass/Vol] 244.5 ng/mL Normal 8.0-252.0 [facility] ([place]) Comment on above: Performed By: #### P TH, GFR, FERR, FES, RFP ####[place] [address] FESon 11-30-2021 Iron [Mass/Vol] 33 ug/dL Low 50-170 [facility] ([place]) Comment on above: Performed By: #### P TH, GFR, FERR, FES, RFP ####[place] [address] Iron Sat 12 % Normal [facility] ([place]) Comment on above: Performed By: #### P TH, GFR, FERR, FES, RFP ####[place] [address] TIBC 274 mcg/dL Normal 250-500 [facility] ([place]) Comment on above: Performed By: #### P TH, GFR, FERR, FES, RFP ####[place] [address] LABORATORYOrdered By: SYSTEM SYSTEM on 11-30-2021 Albumin BCP dye [Mass/Vol] 2.7 G/dL Invalid Interpretation Code 3.2 - 4.8 G/dL ADM SS Basophils (Bld) [#/Vol] 0.1 103/mcL Invalid Interpretation Code 0.0 - 0.3 10^3/mcL AH Workflow SS Basophils/100 WBC (Bld) 1.1 % Invalid Interpretation Code 0.0 - 2.5 % Workflow SS Calcium [Mass/Vol] 9.1 mg/dL Invalid Interpretation Code 8.7 - 10.4 mg/dL ADM SS Chloride [Moles/Vol] 104 mmol/L Invalid Interpretation Code 98 - 110 mEq/L ADM SS CO2 [Moles/Vol] 26 mmol/L Invalid Interpretation Code 22 - 32 mEq/L ADM SS Creatinine [Mass/Vol] 2.68 mg/dL Invalid Interpretation Code 0.50 - 1.20 mg/dL ADM SS Electrolyte Balance 7.0 mEq/L Invalid Interpretation Code 4.0 - 15.0 mEq/L ADM SS Eosinophils (Bld) [#/Vol] 0.3 103/mcL Invalid Interpretation Code 0.0 - 0.7 10^3/mcL Workflow SS Eosinophils/100 WBC (Bld) 3.8 % Invalid Interpretation Code 0.0 - 6.0 % Workflow SS Erythrocyte distribution width (RBC) [Ratio] 14.9 % Invalid Interpretation Code 11.5 - 15.5 % Workflow SS Ferritin [Mass/Vol] 244.5 ng/mL Invalid Interpretation Code 8.0 - 252.0 ng/mL ADM SS GFR/1.73 sq M.predicted among blacks MDRD (S/P/Bld) [Vol rate/Area] 21 ml/min/1.73sqm Invalid Interpretation Code ADM SS GFR/1.73 sq M.predicted among non-blacks MDRD (S/P/Bld) [Vol rate/Area] 17 ml/min/1.73sqm Invalid Interpretation Code ADM SS Glucose [Mass/Vol] 180 mg/dL Invalid Interpretation Code 82 - 115 mg/dL ADM SS Hematocrit (Bld) [Volume fraction] 28.1 % Invalid Interpretation Code 34.0 - 46.0 % Workflow SS Hemoglobin (Bld) [Mass/Vol] 9.5 G/dL Invalid Interpretation Code 12.0 - 16.0 G/dL Workflow SS Iron [Mass/Vol] 33 ug/dL Invalid Interpretation Code 50 - 170 mcg/dL ADM SS Iron binding capacity [Mass/Vol] 274 mcg/dL Invalid Interpretation Code 250 - 500 mcg/dL ADM SS Iron saturation [Mass fraction] 12 1 Invalid Interpretation Code ADM SS Lymphocytes (Bld) [#/Vol] 1.7 103/mcL Invalid Interpretation Code 0.9 - 4.3 10^3/mcL Workflow SS Lymphocytes/100 WBC (Bld) 21.0 % Invalid Interpretation Code 20.0 - 40.0 % Workflow SS MCH (RBC) [Entitic mass] 30.6 pg Invalid Interpretation Code 27.0 - 33.0 pg AH Workflow SS MCHC 33.9 G/dL Invalid Interpretation Code 32.0 - 36.0 G/dL Workflow SS MCV (RBC) [Entitic vol] 90.5 fL Invalid Interpretation Code 80.0 - 99.0 fL Workflow SS Monocyte distribution width Auto (Bld) [Entitic vol] Not Performed 1 *NA* (11/30/21 2:07 PM) Invalid Interpretation Code 0.00 - 20.00 Hematology S Comment on above: Result Comment: MDW testing performed only on adult ER patients between the ages of 18-89 years. Monocytes (Bld) [#/Vol] 0.5 103/mcL Invalid Interpretation Code 0.1 - 1.4 10^3/mcL Workflow SS Monocytes/100 WBC (Bld) 6.5 % Invalid Interpretation Code 2.0 - 13.0 % Workflow SS Neutrophils (Bld) [#/Vol] 5.4 103/mcL Invalid Interpretation Code 2.3 - 8.1 10^3/mcL Workflow SS Neutrophils/100 WBC (Bld) 67.6 % Invalid Interpretation Code 50.0 - 75.0 % Workflow SS Parathyrin.intact [Mass/Vol] 67.2 pg/mL Invalid Interpretation Code 18.5 - 88.0 pg/mL ADM SS Phosphate [Mass/Vol] 3.6 mg/dL Invalid Interpretation Code 2.4 - 5.1 mg/dL ADM SS Platelet mean volume (Bld) [Entitic vol] 7.5 fL Invalid Interpretation Code 6.6 - 10.5 fL Workflow SS Platelets (Bld) [#/Vol] 257 103/mcL Invalid Interpretation Code 150 - 450 10^3/mcL Workflow SS Potassium [Moles/Vol] 4.6 mmol/L Invalid Interpretation Code 3.5 - 5.0 mEq/L AH ADM SS RBC (Bld) [#/Vol] 3.11 106/mcL Invalid Interpretation Code 4.10 - 5.30 10^6/mcL Workflow SS Sodium [Moles/Vol] 137 mmol/L Invalid Interpretation Code 136 - 145 mEq/L AH ADM SS Urea nitrogen [Mass/Vol] 36.0 mg/dL Invalid Interpretation Code 8.0 - 22.0 mg/dL AH ADM SS Urea nitrogen/Creatinine [Mass ratio] 13.4 ratio Invalid Interpretation Code 10.0 - 22.0 ratio ADM SS WBC 7.9 103/mcL Invalid Interpretation Code 4.5 - 10.8 10^3/mcL Workflow SS PTHon 11-30-2021 PTH, Intact 67.2 pg/mL Normal 18.5-88.0 [facility] ([place]) Comment on above: Performed By: #### P TH, GFR, FERR, FES, RFP ####[address] [address] RFPon 11-30-2021 Albumin Level 2.7 G/dL Low 3.2-4.8 [facility] ([place]) Comment on above: Performed By: #### P TH, GFR, FERR, FES, RFP ####[address] [address] BUN/Creatinine Ratio 13.4 ratio Normal 10.0-22.0 [facility] ([place]) Comment on above: Performed By: #### P TH, GFR, FERR, FES, RFP ####[address] [address] Calcium [Mass/Vol] 9.1 mg/dL Normal 8.7-10.4 [facility] ([place]) Comment on above: Performed By: #### P TH, GFR, FERR, FES, RFP ####[address] [address] Chloride [Moles/Vol] 104 mmol/L Normal 98-110 [facility] ([place]) Comment on above: Performed By: #### P TH, GFR, FERR, FES, RFP ####[address] [address] CO2 [Moles/Vol] 26 mmol/L Normal 22-32 [facility] ([place]) Comment on above: Performed By: #### P TH, GFR, FERR, FES, RFP ####[address] [address] Creatinine [Mass/Vol] 2.68 mg/dL High 0.50-1.20 [facility] ([place]) Comment on above: Performed By: #### P TH, GFR, FERR, FES, RFP ####[address] [address] Electrolyte Balance 7.0 mEq/L Normal 4.0-15.0 [facility] ([place]) Comment on above: Performed By: #### P TH, GFR, FERR, FES, RFP ####[address] [address] Glucose [Mass/Vol] 180 mg/dL High 82-115 [facility] ([place]) Comment on above: Performed By: #### P TH, GFR, FERR, FES, RFP ####[address] [address] Phosphate [Mass/Vol] 3.6 mg/dL Normal 2.4-5.1 [facility] ([place]) Comment on above: Result Comment: No te - New Reference Range in effect 19 Performed By: #### P TH, GFR, FERR, FES, RFP ####[address] [address] Potassium [Moles/Vol] 4.6 mmol/L Normal 3.5-5.0 [facility] ([place]) Comment on above: Performed By: #### P TH, GFR, FERR, FES, RFP ####[address] [address] Sodium [Moles/Vol] 137 mmol/L Normal 136-145 [facility] ([place]) Comment on above: Performed By: #### P TH, GFR, FERR, FES, RFP ####[address] [address] Urea nitrogen [Mass/Vol] 36.0 mg/dL High 8.0-22.0 [facility] ([place]) Comment on above: Performed By: #### P TH, GFR, FERR, FES, RFP ####[place] [address] No Panel Informationon 11-01 [facility] UA DIP, URINE (POC)on 2021 BILIRUBIN UA (POCT) Negative Negative [facility] CLARITY UA (POCT) Clear [facility] COLOR UA (POCT) Yellow [facility] GLUCOSE UA (POCT) Negative Negative mg/dL [facility] HEMOGLOBIN/BLOOD UA (POCT) Negative Negative [facility] KETONE UA (POCT) Negative Negative mg/dL [facility] LEUKOCYTES UA (POCT) Negative Negative [facility] NITRITE UA (POCT) Negative Negative [facility] PH UA (POCT) 6.5 4.5 - 8.0 [facility] Protein Ql (U) >=300 Abnormal Negative mg/dL [facility] SPECIFIC GRAVITY UA (POCT) 1.020 1.005 - 1.030 [facility] UROBILINOGEN UA (POCT) 0.2 E.U./dL Sivan l E.U./dL [facility] .Auto Diffon 10-26-2021 Basophil, Absolute 0.1 10 3/mcL Normal 0.0-0.3 [facility] ([place]) Comment on above: Performed By: #### F ES, RFP, FERR, GFR ####[place] [address] Basophils/100 WBC (Bld) 0.7 % Normal 0.0-2.5 [facility] ([place]) Comment on above: Performed By: #### F ES, RFP, FERR, GFR ####[place] [address] Eosinophil, Absolute 0.3 10 3/mcL Normal 0.0-0.7 [facility] ([place]) Comment on above: Performed By: #### F ES, RFP, FERR, GFR ####[place] [address] Eosinophils/100 WBC (Bld) 4.4 % Normal 0.0-6.0 [facility] ([place]) Comment on above: Performed By: #### F ES, RFP, FERR, GFR ####[address] [address] Lymphocyte, Absolute 1.5 10 3/mcL Normal 0.9-4.3 [facility] ([place]) Comment on above: Performed By: #### F ES, RFP, FERR, GFR ####[address] [address] Lymphocytes/100 WBC (Bld) 18.5 % Low 20.0-40.0 [facility] ([place]) Comment on above: Performed By: #### F ES, RFP, FERR, GFR ####[address] [address] Monocyte, Absolute 0.6 10 3/mcL Normal 0.1-1.4 [facility] ([place]) Comment on above: Performed By: #### F ES, RFP, FERR, GFR ####[address] [address] Monocytes/100 WBC (Bld) 7.1 % Normal 2.0-13.0 [facility] ([place]) Comment on above: Performed By: #### F ES, RFP, FERR, GFR ####[address] [address] Neutrophils/100 WBC (Bld) 69.3 % Normal 50.0-75.0 [facility] ([place]) Comment on above: Performed By: #### F ES, RFP, FERR, GFR ####[address] [address] .GFRon 10-26-2021 GFR Non- 18 ml/min/1.73sqm Normal [facility] ([place]) Comment on above: Result Comment: GFR Population mean for , Non- Americans Ages 20-29 = 116 mL/min/1.73 sq.m. Ages 30-39 = 107 mL/min/1.73 sq.m. Ages 40-49 = 99 mL/min/1.73 sq.m. Ages 50-59 = 93 mL/min/1.73 sq.m. Ages 60-69 = 85 mL/min/1.73 sq.m. Ages 70+ = 75 mL/min/1.73 sq.m.Chronic Kidney Disease: Less than 60 mL/min/1.73 square metersEnd Stage Renal Disease: Less than 15 mL/min/1.73 square meters Performed By: #### F ES, RFP, FERR, GFR ####[place] [address] GFR 21 ml/min/1.73sqm Normal [facility] ([place]) Comment on above: Result Comment: GFR Population mean for , Non- Americans Ages 20-29 = 116 mL/min/1.73 sq.m. Ages 30-39 = 107 mL/min/1.73 sq.m. Ages 40-49 = 99 mL/min/1.73 sq.m. Ages 50-59 = 93 mL/min/1.73 sq.m. Ages 60-69 = 85 mL/min/1.73 sq.m. Ages 70+ = 75 mL/min/1.73 sq.m.Chronic Kidney Disease: Less than 60 mL/min/1.73 square metersEnd Stage Renal Disease: Less than 15 mL/min/1.73 square meters Performed By: #### F ES, RFP, FERR, GFR ####[place] [address] .MDWon 10-26-2021 Monocyte Distribution Width Not performed Normal 0.00-20.00 [facility] ([place]) Comment on above: Result Comment: MDW testing performed only on adult ER patients between the ages of 18-89 years. Performed By: #### F ES, RFP, FERR, GFR ####[place] [address] .NEUABSon 10-26-2021 Neutrophil, Absolute 5.4 10 3/mcL Normal 2.3-8.1 [facility] ([place]) Comment on above: Performed By: #### F ES, RFP, FERR, GFR ####[address] [address] CBCon 10-26-2021 Erythrocyte distribution width (RBC) [Ratio] 16.4 % High 11.5-15.5 [facility] ([place]) Comment on above: Performed By: #### F ES, RFP, FERR, GFR ####[place] [address] Hematocrit (Bld) [Volume fraction] 25.9 % Low 34.0-46.0 [facility] ([place]) Comment on above: Performed By: #### F ES, RFP, FERR, GFR ####[place] [address] Hgb 9.1 G/dL Low 12.0-16.0 [facility] ([place]) Comment on above: Performed By: #### F ES, RFP, FERR, GFR ####[place] [address] MCH (RBC) [Entitic mass] 30.6 pg Normal 27.0-33.0 [facility] ([place]) Comment on above: Performed By: #### F ES, RFP, FERR, GFR ####[place] [address] MCHC 35.0 G/dL Normal 32.0-36.0 [facility] ([place]) Comment on above: Performed By: #### F ES, RFP, FERR, GFR ####[place] [address] MCV (RBC) [Entitic vol] 87.4 fL Normal 80.0-99.0 [facility] ([place]) Comment on above: Performed By: #### F ES, RFP, FERR, GFR ####[place] [address] Platelet 182 10 3/mcL Normal 150-450 [facility] ([place]) Comment on above: Performed By: #### F ES, RFP, FERR, GFR ####[place] [address] Platelet mean volume (Bld) [Entitic vol] 7.8 fL Normal 6.6-10.5 [facility] ([place]) Comment on above: Performed By: #### F ES, RFP, FERR, GFR ####[place] [address] RBC 2.96 10 6/mcL Low 4.10-5.30 [facility] ([place]) Comment on above: Performed By: #### F ES, RFP, FERR, GFR ####[place] [address] WBC 7.9 10 3/mcL Normal 4.5-10.8 [facility] ([place]) Comment on above: Performed By: #### F ES, RFP, FERR, GFR ####[place] [address] Nicolette 10-26-2021 Ferritin [Mass/Vol] 333.5 ng/mL High 8.0-252.0 [facility] ([place]) Comment on above: Performed By: #### F ES, RFP, FERR, GFR ####[place] [address] FESon 10-26-2021 Iron [Mass/Vol] 42 ug/dL Low 50-170 [facility] ([place]) Comment on above: Performed By: #### F ES, RFP, FERR, GFR ####[place] [address] Iron Sat 15 % Normal [facility] ([place]) Comment on above: Performed By: #### F ES, RFP, FERR, GFR ####[place] [address] TIBC 280 mcg/dL Normal 250-500 [facility] ([place]) Comment on above: Performed By: #### F ES, RFP, FERR, GFR ####[place] [address] LABORATORYOrdered By: SYSTEM SYSTEM on 10-26-2021 Albumin BCP dye [Mass/Vol] 3.0 G/dL Invalid Interpretation Code 3.2 - 4.8 G/dL AH ADM SS Basophils (Bld) [#/Vol] 0.1 103/mcL Invalid Interpretation Code 0.0 - 0.3 10^3/mcL AH Workflow SS Basophils/100 WBC (Bld) 0.7 % Invalid Interpretation Code 0.0 - 2.5 % AH Workflow SS Calcium [Mass/Vol] 9.6 mg/dL Invalid Interpretation Code 8.7 - 10.4 mg/dL AH ADM SS Chloride [Moles/Vol] 105 mmol/L Invalid Interpretation Code 98 - 110 mEq/L ADM SS CO2 [Moles/Vol] 25 mmol/L Invalid Interpretation Code 22 - 32 mEq/L ADM SS Creatinine [Mass/Vol] 2.61 mg/dL Invalid Interpretation Code 0.50 - 1.20 mg/dL ADM SS Electrolyte Balance 6.0 mEq/L Invalid Interpretation Code 4.0 - 15.0 mEq/L ADM SS Eosinophils (Bld) [#/Vol] 0.3 103/mcL Invalid Interpretation Code 0.0 - 0.7 10^3/mcL Workflow SS Eosinophils/100 WBC (Bld) 4.4 % Invalid Interpretation Code 0.0 - 6.0 % Workflow SS Erythrocyte distribution width (RBC) [Ratio] 16.4 % Invalid Interpretation Code 11.5 - 15.5 % Workflow SS Ferritin [Mass/Vol] 333.5 ng/mL Invalid Interpretation Code 8.0 - 252.0 ng/mL ADM SS GFR/1.73 sq M.predicted among blacks MDRD (S/P/Bld) [Vol rate/Area] 21 ml/min/1.73sqm Invalid Interpretation Code ADM SS GFR/1.73 sq M.predicted among non-blacks MDRD (S/P/Bld) [Vol rate/Area] 18 ml/min/1.73sqm Invalid Interpretation Code ADM SS Glucose [Mass/Vol] 117 mg/dL Invalid Interpretation Code 82 - 115 mg/dL ADM SS Hematocrit (Bld) [Volume fraction] 25.9 % Invalid Interpretation Code 34.0 - 46.0 % Workflow SS Hemoglobin (Bld) [Mass/Vol] 9.1 G/dL Invalid Interpretation Code 12.0 - 16.0 G/dL Workflow SS Iron [Mass/Vol] 42 ug/dL Invalid Interpretation Code 50 - 170 mcg/dL ADM SS Iron binding capacity [Mass/Vol] 280 mcg/dL Invalid Interpretation Code 250 - 500 mcg/dL ADM SS Iron saturation [Mass fraction] 15 1 Invalid Interpretation Code ADM SS Lymphocytes (Bld) [#/Vol] 1.5 103/mcL Invalid Interpretation Code 0.9 - 4.3 10^3/mcL Workflow SS Lymphocytes/100 WBC (Bld) 18.5 % Invalid Interpretation Code 20.0 - 40.0 % AH Workflow SS MCH (RBC) [Entitic mass] 30.6 pg Invalid Interpretation Code 27.0 - 33.0 pg AH Workflow SS MCHC 35.0 G/dL Invalid Interpretation Code 32.0 - 36.0 G/dL Workflow SS MCV (RBC) [Entitic vol] 87.4 fL Invalid Interpretation Code 80.0 - 99.0 fL AH Workflow SS Monocyte distribution width Auto (Bld) [Entitic vol] Not Performed 1 *NA* (10/26/21 1:45 PM) Invalid Interpretation Code 0.00 - 20.00 Hematology S Comment on above: Result Comment: MDW testing performed only on adult ER patients between the ages of 18-89 years. Monocytes (Bld) [#/Vol] 0.6 103/mcL Invalid Interpretation Code 0.1 - 1.4 10^3/mcL Workflow SS Monocytes/100 WBC (Bld) 7.1 % Invalid Interpretation Code 2.0 - 13.0 % Workflow SS Neutrophils (Bld) [#/Vol] 5.4 103/mcL Invalid Interpretation Code 2.3 - 8.1 10^3/mcL Workflow SS Neutrophils/100 WBC (Bld) 69.3 % Invalid Interpretation Code 50.0 - 75.0 % Workflow SS Phosphate [Mass/Vol] 4.3 mg/dL Invalid Interpretation Code 2.4 - 5.1 mg/dL ADM SS Platelet mean volume (Bld) [Entitic vol] 7.8 fL Invalid Interpretation Code 6.6 - 10.5 fL Workflow SS Platelets (Bld) [#/Vol] 182 103/mcL Invalid Interpretation Code 150 - 450 10^3/mcL AH Workflow SS Potassium [Moles/Vol] 4.1 mmol/L Invalid Interpretation Code 3.5 - 5.0 mEq/L ADM SS RBC (Bld) [#/Vol] 2.96 106/mcL Invalid Interpretation Code 4.10 - 5.30 10^6/mcL AH Workflow SS Sodium [Moles/Vol] 136 mmol/L Invalid Interpretation Code 136 - 145 mEq/L ADM SS Urea nitrogen [Mass/Vol] 39.0 mg/dL Invalid Interpretation Code 8.0 - 22.0 mg/dL ADM SS Urea nitrogen/Creatinine [Mass ratio] 14.9 ratio Invalid Interpretation Code 10.0 - 22.0 ratio AH ADM SS WBC 7.9 103/mcL Invalid Interpretation Code 4.5 - 10.8 10^3/mcL AH Workflow SS RFPon 10-26-2021 Albumin Level 3.0 G/dL Low 3.2-4.8 [facility] ([place]) Comment on above: Performed By: #### F ES, RFP, FERR, GFR ####[address] [address] BUN/Creatinine Ratio 14.9 ratio Normal 10.0-22.0 [facility] ([place]) Comment on above: Performed By: #### F ES, RFP, FERR, GFR ####[address] [address] Calcium [Mass/Vol] 9.6 mg/dL Normal 8.7-10.4 [facility] ([place]) Comment on above: Performed By: #### F ES, RFP, FERR, GFR ####[address] [address] Chloride [Moles/Vol] 105 mmol/L Normal 98-110 [facility] ([place]) Comment on above: Performed By: #### F ES, RFP, FERR, GFR ####[address] [address] CO2 [Moles/Vol] 25 mmol/L Normal 22-32 [facility] ([place]) Comment on above: Performed By: #### F ES, RFP, FERR, GFR ####[address] [address] Creatinine [Mass/Vol] 2.61 mg/dL High 0.50-1.20 [facility] ([place]) Comment on above: Performed By: #### F ES, RFP, FERR, GFR ####[address] [address] Electrolyte Balance 6.0 mEq/L Normal 4.0-15.0 [facility] ([place]) Comment on above: Performed By: #### F ES, RFP, FERR, GFR ####[address] [address] Glucose [Mass/Vol] 117 mg/dL High 82-115 [facility] ([place]) Comment on above: Performed By: #### F ES, RFP, FERR, GFR ####[address] [address] Phosphate [Mass/Vol] 4.3 mg/dL Normal 2.4-5.1 [facility] ([place]) Comment on above: Result Comment: No te - New Reference Range in effect 19 Performed By: #### F ES, RFP, FERR, GFR ####[address] [address] Potassium [Moles/Vol] 4.1 mmol/L Normal 3.5-5.0 [facility] ([place]) Comment on above: Performed By: #### F ES, RFP, FERR, GFR ####[address] [address] Sodium [Moles/Vol] 136 mmol/L Normal 136-145 [facility] ([place]) Comment on above: Performed By: #### F ES, RFP, FERR, GFR ####[address] [address] Urea nitrogen [Mass/Vol] 39.0 mg/dL High 8.0-22.0 [facility] ([place]) Comment on above: Performed By: #### F ES, RFP, FERR, GFR ####[address] [address] .GFRon 10-08-2021 GFR 20 ml/min/1.73sqm Normal [facility] ([place]) Comment on above: Result Comment: GFR Population mean for , Non- Americans Ages 20-29 = 116 mL/min/1.73 sq.m. Ages 30-39 = 107 mL/min/1.73 sq.m. Ages 40-49 = 99 mL/min/1.73 sq.m. Ages 50-59 = 93 mL/min/1.73 sq.m. Ages 60-69 = 85 mL/min/1.73 sq.m. Ages 70+ = 75 mL/min/1.73 sq.m.Chronic Kidney Disease: Less than 60 mL/min/1.73 square metersEnd Stage Renal Disease: Less than 15 mL/min/1.73 square meters Performed By: #### F ERR, FES, GFR, RFP ####[address] [address] GFR Non- 17 ml/min/1.73sqm Normal [facility] ([place]) Comment on above: Result Comment: GFR Population mean for , Non- Americans Ages 20-29 = 116 mL/min/1.73 sq.m. Ages 30-39 = 107 mL/min/1.73 sq.m. Ages 40-49 = 99 mL/min/1.73 sq.m. Ages 50-59 = 93 mL/min/1.73 sq.m. Ages 60-69 = 85 mL/min/1.73 sq.m. Ages 70+ = 75 mL/min/1.73 sq.m.Chronic Kidney Disease: Less than 60 mL/min/1.73 square metersEnd Stage Renal Disease: Less than 15 mL/min/1.73 square meters Performed By: #### F ERR, FES, GFR, RFP ####[place] [address] Nicolette 10-08-2021 Ferritin [Mass/Vol] 379.0 ng/mL High 8.0-252.0 [facility] ([place]) Comment on above: Performed By: #### F ERR, FES, GFR, RFP ####[place] [address] FESon 10-08-2021 Iron [Mass/Vol] 68 ug/dL Normal 50-170 [facility] ([place]) Comment on above: Performed By: #### F ERR, FES, GFR, RFP ####[place] [address] Iron Sat 24 % Normal [facility] ([place]) Comment on above: Performed By: #### F ERR, FES, GFR, RFP ####[place] [address] TIBC 286 mcg/dL Normal 250-500 [facility] ([place]) Comment on above: Performed By: #### F ERR, FES, GFR, RFP ####[place] [address] HGMPon 10-08-2021 Erythrocyte distribution width (RBC) [Ratio] 16.8 % High 11.5-15.5 [facility] ([place]) Comment on above: Performed By: #### F ERR, FES, GFR, RFP ####[place] [address] Hematocrit (Bld) [Volume fraction] 28.6 % Low 34.0-46.0 [facility] ([place]) Comment on above: Performed By: #### F ERR, FES, GFR, RFP ####[place] [address] Hgb 9.7 G/dL Low 12.0-16.0 [facility] ([place]) Comment on above: Performed By: #### F ERR, FES, GFR, RFP ####[place] [address] MCH (RBC) [Entitic mass] 29.6 pg Normal 27.0-33.0 [facility] ([place]) Comment on above: Performed By: #### F ERR, FES, GFR, RFP ####[place] [address] MCHC 33.9 G/dL Normal 32.0-36.0 [facility] ([place]) Comment on above: Performed By: #### F ERR, FES, GFR, RFP ####[place] [address] MCV (RBC) [Entitic vol] 87.3 fL Normal 80.0-99.0 [facility] ([place]) Comment on above: Performed By: #### F ERR, FES, GFR, RFP ####[place] [address] Platelet 217 10 3/mcL Normal 150-450 [facility] ([place]) Comment on above: Performed By: #### F ERR, FES, GFR, RFP ####[place] [address] Platelet mean volume (Bld) [Entitic vol] 9.4 fL Normal 6.6-10.5 [facility] ([place]) Comment on above: Performed By: #### F ERR, FES, GFR, RFP ####[address] [address] RBC 3.27 10 6/mcL Low 4.10-5.30 [facility] ([place]) Comment on above: Performed By: #### F ERR, FES, GFR, RFP ####[address] [address] WBC 7.7 10 3/mcL Normal 4.5-10.8 [facility] ([place]) Comment on above: Performed By: #### F ERR, FES, GFR, RFP ####[address] [address] RFPon 10-08-2021 Albumin Level 2.8 G/dL Low 3.2-4.8 [facility] ([place]) Comment on above: Performed By: #### F ERR, FES, GFR, RFP ####[place] [address] BUN/Creatinine Ratio 15.9 ratio Normal 10.0-22.0 [facility] ([place]) Comment on above: Performed By: #### F ERR, FES, GFR, RFP ####[place] [address] Calcium [Mass/Vol] 9.5 mg/dL Normal 8.7-10.4 [facility] ([place]) Comment on above: Performed By: #### F ERR, FES, GFR, RFP ####[place] [address] Chloride [Moles/Vol] 104 mmol/L Normal 98-110 [facility] ([place]) Comment on above: Performed By: #### F ERR, FES, GFR, RFP ####[place] [address] CO2 [Moles/Vol] 26 mmol/L Normal 22-32 [facility] ([place]) Comment on above: Performed By: #### F ERR, FES, GFR, RFP ####[address] [address] Creatinine [Mass/Vol] 2.70 mg/dL High 0.50-1.20 [facility] ([place]) Comment on above: Performed By: #### F ERR, FES, GFR, RFP ####[address] [address] Electrolyte Balance 6.0 mEq/L Normal 4.0-15.0 [facility] ([place]) Comment on above: Performed By: #### F ERR, FES, GFR, RFP ####[address] [address] Glucose [Mass/Vol] 123 mg/dL High 82-115 [facility] ([place]) Comment on above: Performed By: #### F ERR, FES, GFR, RFP ####[place] [address] Phosphate [Mass/Vol] 4.2 mg/dL Normal 2.4-5.1 [facility] ([place]) Comment on above: Result Comment: No te - New Reference Range in effect 19 Performed By: #### F ERR, FES, GFR, RFP ####[place] [address] Potassium [Moles/Vol] 4.2 mmol/L Normal 3.5-5.0 [facility] ([place]) Comment on above: Result Comment: Spec imen slightly hemolyzed. Performed By: #### F ERR, FES, GFR, RFP ####[address] [address] Sodium [Moles/Vol] 136 mmol/L Normal 136-145 [facility] ([place]) Comment on above: Performed By: #### F ERR, FES, GFR, RFP ####[address] [address] Urea nitrogen [Mass/Vol] 43.0 mg/dL High 8.0-22.0 [facility] ([place]) Comment on above: Performed By: #### F ERR, FES, GFR, RFP ####[address] [address] .Auto Diffon 08-08-2021 Basophil, Absolute 0.10 10 3/mcL Normal 0.00-0.27 [facility] ([place]) Comment on above: Performed By: #### G FR, ADIFF, FES, ANEU, FERR, CBC, RFP ####[address] [address] Basophils/100 WBC (Bld) 0.8 % Normal 0.0-2.5 [facility] ([place]) Comment on above: Performed By: #### G FR, ADIFF, FES, ANEU, FERR, CBC, RFP ####[address] [address] Eosinophil, Absolute 0.30 10 3/mcL Normal 0.00-0.65 [facility] ([place]) Comment on above: Performed By: #### G FR, ADIFF, FES, ANEU, FERR, CBC, RFP ####[address] [address] Eosinophils/100 WBC (Bld) 4.2 % Normal 0.0-6.0 [facility] ([place]) Comment on above: Performed By: #### G FR, ADIFF, FES, ANEU, FERR, CBC, RFP ####[address] [address] Lymphocyte, Absolute 1.60 10 3/mcL Normal 0.90-4.32 [facility] ([place]) Comment on above: Performed By: #### G FR, ADIFF, FES, ANEU, FERR, CBC, RFP ####[address] [address] Lymphocytes/100 WBC (Bld) 22.3 % Normal 20.0-40.0 [facility] ([place]) Comment on above: Performed By: #### G FR, ADIFF, FES, ANEU, FERR, CBC, RFP ####[address] [address] Monocyte, Absolute 0.50 10 3/mcL Normal 0.09-1.40 [facility] ([place]) Comment on above: Performed By: #### G FR, ADIFF, FES, ANEU, FERR, CBC, RFP ####[address] [address] Monocytes/100 WBC (Bld) 7.6 % Normal 2.0-13.0 [facility] ([place]) Comment on above: Performed By: #### G FR, ADIFF, FES, ANEU, FERR, CBC, RFP ####[address] [address] Neutrophils/100 WBC (Bld) 65.1 % Normal 50.0-75.0 [facility] ([place]) Comment on above: Performed By: #### G FR, ADIFF, FES, ANEU, FERR, CBC, RFP ####[address] [address] .GFRon 08-08-2021 GFR 26 ml/min/1.73sqm Normal [facility] ([place]) Comment on above: Result Comment: GFR Population mean for , Non- Americans Ages 20-29 = 116 mL/min/1.73 sq.m. Ages 30-39 = 107 mL/min/1.73 sq.m. Ages 40-49 = 99 mL/min/1.73 sq.m. Ages 50-59 = 93 mL/min/1.73 sq.m. Ages 60-69 = 85 mL/min/1.73 sq.m. Ages 70+ = 75 mL/min/1.73 sq.m.Chronic Kidney Disease: Less than 60 mL/min/1.73 square metersEnd Stage Renal Disease: Less than 15 mL/min/1.73 square meters Performed By: #### G FR, ADIFF, FES, ANEU, FERR, CBC, RFP ####[address] [address] GFR Non- 22 ml/min/1.73sqm Normal [facility] ([place]) Comment on above: Result Comment: GFR Population mean for , Non- Americans Ages 20-29 = 116 mL/min/1.73 sq.m. Ages 30-39 = 107 mL/min/1.73 sq.m. Ages 40-49 = 99 mL/min/1.73 sq.m. Ages 50-59 = 93 mL/min/1.73 sq.m. Ages 60-69 = 85 mL/min/1.73 sq.m. Ages 70+ = 75 mL/min/1.73 sq.m.Chronic Kidney Disease: Less than 60 mL/min/1.73 square metersEnd Stage Renal Disease: Less than 15 mL/min/1.73 square meters Performed By: #### G FR, ADIFF, FES, ANEU, FERR, CBC, RFP ####[place] [address] .NEUABSon 08-08-2021 Neutrophil, Absolute 4.60 10 3/mcL Normal 2.25-8.10 [facility] ([place]) Comment on above: Performed By: #### G FR, ADIFF, FES, ANEU, FERR, CBC, RFP ####[place] [address] CBCon 08-08-2021 Erythrocyte distribution width (RBC) [Ratio] 15.2 % Normal 11.5-15.5 [facility] ([place]) Comment on above: Performed By: #### G FR, ADIFF, FES, ANEU, FERR, CBC, RFP ####[place] [address] Hematocrit (Bld) [Volume fraction] 32.2 % Low 34.0-46.0 [facility] ([place]) Comment on above: Performed By: #### G FR, ADIFF, FES, ANEU, FERR, CBC, RFP ####[place] [address] Hgb 10.7 G/dL Low 12.0-16.0 [facility] ([place]) Comment on above: Performed By: #### G FR, ADIFF, FES, ANEU, FERR, CBC, RFP ####[place] [address] MCH (RBC) [Entitic mass] 29.3 pg Normal 27.0-33.0 [facility] ([place]) Comment on above: Performed By: #### G FR, ADIFF, FES, ANEU, FERR, CBC, RFP ####[place] [address] MCHC 33.1 G/dL Normal 32.0-36.0 [facility] ([place]) Comment on above: Performed By: #### G FR, ADIFF, FES, ANEU, FERR, CBC, RFP ####[place] [address] MCV (RBC) [Entitic vol] 88.6 fL Normal 80.0-99.0 [facility] ([place]) Comment on above: Performed By: #### G FR, ADIFF, FES, ANEU, FERR, CBC, RFP ####[place] [address] Platelet 257 10 3/mcL Normal 150-450 [facility] ([place]) Comment on above: Performed By: #### G FR, ADIFF, FES, ANEU, FERR, CBC, RFP ####[place] [address] Platelet mean volume (Bld) [Entitic vol] 7.7 fL Normal 6.6-10.5 [facility] ([place]) Comment on above: Performed By: #### G FR, ADIFF, FES, ANEU, FERR, CBC, RFP ####[place] [address] RBC 3.63 10 6/mcL Low 4.10-5.30 [facility] ([place]) Comment on above: Performed By: #### G FR, ADIFF, FES, ANEU, FERR, CBC, RFP ####[place] [address] WBC 7.10 10 3/mcL Normal 4.50-10.80 [facility] ([place]) Comment on above: Performed By: #### G FR, ADIFF, FES, ANEU, FERR, CBC, RFP ####[place] [address] Nicolette 08-08-2021 Ferritin [Mass/Vol] 76.4 ng/mL Normal 8.0-252.0 [facility] ([place]) Comment on above: Performed By: #### G FR, ADIFF, FES, ANEU, FERR, CBC, RFP ####[place] [address] FESon 08-08-2021 Iron [Mass/Vol] 32 ug/dL Low 50-170 [facility] ([place]) Comment on above: Performed By: #### G FR, ADIFF, FES, ANEU, FERR, CBC, RFP ####[facility] [place] [address] Iron Sat 11 % Normal [facility] ([place]) Comment on above: Performed By: #### G FR, ADIFF, FES, ANEU, FERR, CBC, RFP ####[facility] [place] [address] TIBC 283 mcg/dL Normal 250-500 [facility] ([place]) Comment on above: Performed By: #### G FR, ADIFF, FES, ANEU, FERR, CBC, RFP ####[facility] [place] [address] LABORATORYOrdered By: SYSTEM SYSTEM on 08-08-2021 Albumin [Mass/Vol] 2.3 G/dL Invalid Interpretation Code 3.2 - 4.8 G/dL ADM SS Base excess Calc (BldMV) [Moles/Vol] 6.0 mEq/L Invalid Interpretation Code 4.0 - 15.0 mEq/L AH ADM SS Basophils (Bld) [#/Vol] 0.10 103/mcL Invalid Interpretation Code 0.00 - 0.27 10^3/mcL AH Remisol SS Basophils/100 WBC (Bld) 0.8 % Invalid Interpretation Code 0.0 - 2.5 % AH Remisol SS Calcium [Mass/Vol] 9.3 mg/dL Invalid Interpretation Code 8.4 - 10.1 mg/dL AH ADM SS Chloride [Moles/Vol] 106 mmol/L Invalid Interpretation Code 98 - 110 mEq/L AH ADM SS CO2 [Moles/Vol] 27 mmol/L Invalid Interpretation Code 22 - 32 mEq/L AH ADM SS Creatinine [Mass/Vol] 2.17 mg/dL Invalid Interpretation Code 0.50 - 1.20 mg/dL AH ADM SS Eosinophils (Bld) [#/Vol] 0.30 103/mcL Invalid Interpretation Code 0.00 - 0.65 10^3/mcL AH Remisol SS Eosinophils/100 WBC (Bld) 4.2 % Invalid Interpretation Code 0.0 - 6.0 % AH Remisol SS Erythrocyte distribution width (RBC) [Ratio] 15.2 % Invalid Interpretation Code 11.5 - 15.5 % AH Remisol SS Ferritin [Mass/Vol] 76.4 ng/mL Invalid Interpretation Code 8.0 - 252.0 ng/mL AH ADM SS GFR/1.73 sq M.predicted among blacks MDRD (S/P/Bld) [Vol rate/Area] 26 ml/min/1.73sqm Invalid Interpretation Code AH ADM SS GFR/1.73 sq M.predicted among non-blacks MDRD (S/P/Bld) [Vol rate/Area] 22 ml/min/1.73sqm Invalid Interpretation Code AH ADM SS Glucose [Mass/Vol] 150 mg/dL Invalid Interpretation Code 82 - 115 mg/dL AH ADM SS Hematocrit (Bld) [Volume fraction] 32.2 % Invalid Interpretation Code 34.0 - 46.0 % AH Remisol SS Hemoglobin (Bld) [Mass/Vol] 10.7 G/dL Invalid Interpretation Code 12.0 - 16.0 G/dL AH Remisol SS Iron [Mass/Vol] 32 ug/dL Invalid Interpretation Code 50 - 170 mcg/dL AH ADM SS Iron binding capacity [Mass/Vol] 283 mcg/dL Invalid Interpretation Code 250 - 500 mcg/dL AH ADM SS Iron saturation [Mass fraction] 11 1 Invalid Interpretation Code AH ADM SS Lymphocytes (Bld) [#/Vol] 1.60 103/mcL Invalid Interpretation Code 0.90 - 4.32 10^3/mcL AH Remisol SS Lymphocytes/100 WBC (Bld) 22.3 % Invalid Interpretation Code 20.0 - 40.0 % AH Remisol SS MCH (RBC) [Entitic mass] 29.3 pg Invalid Interpretation Code 27.0 - 33.0 pg AH Remisol SS MCHC (RBC) [Mass/Vol] 33.1 G/dL Invalid Interpretation Code 32.0 - 36.0 G/dL AH Remisol SS MCV (RBC) [Entitic vol] 88.6 fL Invalid Interpretation Code 80.0 - 99.0 fL AH Remisol SS Monocytes (Bld) [#/Vol] 0.50 103/mcL Invalid Interpretation Code 0.09 - 1.40 10^3/mcL AH Remisol SS Monocytes/100 WBC (Bld) 7.6 % Invalid Interpretation Code 2.0 - 13.0 % AH Remisol SS Neutrophils (Bld) [#/Vol] 4.60 103/mcL Invalid Interpretation Code 2.25 - 8.10 10^3/mcL AH Remisol SS Neutrophils/100 WBC (Bld) 65.1 % Invalid Interpretation Code 50.0 - 75.0 % AH Remisol SS Phosphate [Mass/Vol] 4.5 mg/dL Invalid Interpretation Code 2.5 - 4.5 mg/dL AH ADM SS Platelet mean volume (Bld) [Entitic vol] 7.7 fL Invalid Interpretation Code 6.6 - 10.5 fL AH Remisol SS Platelets (Bld) [#/Vol] 257 103/mcL Invalid Interpretation Code 150 - 450 10^3/mcL AH Remisol SS Potassium [Moles/Vol] 4.1 mmol/L Invalid Interpretation Code 3.5 - 5.0 mEq/L AH ADM SS RBC (Bld) [#/Vol] 3.63 106/mcL Invalid Interpretation Code 4.10 - 5.30 10^6/mcL AH Remisol SS Sodium [Moles/Vol] 139 mmol/L Invalid Interpretation Code 136 - 145 mEq/L AH ADM SS Urea nitrogen [Mass/Vol] 36.0 mg/dL Invalid Interpretation Code 8.0 - 22.0 mg/dL AH ADM SS Urea nitrogen/Creatinine [Mass ratio] 16.6 ratio Invalid Interpretation Code 10.0 - 22.0 ratio AH ADM SS WBC (Bld) [#/Vol] 7.10 103/mcL Invalid Interpretation Code 4.50 - 10.80 10^3/mcL AH Remisol SS RFPon 08-08-2021 Albumin Level 2.3 G/dL Low 3.2-4.8 [facility] ([place]) Comment on above: Performed By: #### G FR, ADIFF, FES, ANEU, FERR, CBC, RFP ####[address] [address] BUN/Creatinine Ratio 16.6 ratio Normal 10.0-22.0 [facility] ([place]) Comment on above: Performed By: #### G FR, ADIFF, FES, ANEU, FERR, CBC, RFP ####[address] [address] Calcium [Mass/Vol] 9.3 mg/dL Normal 8.4-10.1 [facility] ([place]) Comment on above: Result Comment: No te - New Reference Range in effect 19 Performed By: #### G FR, ADIFF, FES, ANEU, FERR, CBC, RFP ####[address] [address] Chloride [Moles/Vol] 106 mmol/L Normal 98-110 [facility] ([place]) Comment on above: Performed By: #### G FR, ADIFF, FES, ANEU, FERR, CBC, RFP ####[address] [address] CO2 [Moles/Vol] 27 mmol/L Normal 22-32 [facility] ([place]) Comment on above: Performed By: #### G FR, ADIFF, FES, ANEU, FERR, CBC, RFP ####[address] [address] Creatinine [Mass/Vol] 2.17 mg/dL High 0.50-1.20 [facility] ([place]) Comment on above: Performed By: #### G FR, ADIFF, FES, ANEU, FERR, CBC, RFP ####[address] [address] Electrolyte Balance 6.0 mEq/L Normal 4.0-15.0 [facility] ([place]) Comment on above: Performed By: #### G FR, ADIFF, FES, ANEU, FERR, CBC, RFP ####[address] [address] Glucose [Mass/Vol] 150 mg/dL High 82-115 [facility] ([place]) Comment on above: Performed By: #### G FR, ADIFF, FES, ANEU, FERR, CBC, RFP ####[address] [address] Phosphate [Mass/Vol] 4.5 mg/dL Normal 2.5-4.5 [facility] ([place]) Comment on above: Result Comment: No te - New Reference Range in effect 19 Performed By: #### G FR, ADIFF, FES, ANEU, FERR, CBC, RFP ####[address] [address] Potassium [Moles/Vol] 4.1 mmol/L Normal 3.5-5.0 [facility] ([place]) Comment on above: Performed By: #### G FR, ADIFF, FES, ANEU, FERR, CBC, RFP ####[place] [address] [place] [address] Sodium [Moles/Vol] 139 mmol/L Normal 136-145 [facility] ([place]) Comment on above: Performed By: #### G FR, ADIFF, FES, ANEU, FERR, CBC, RFP ####[place] [address] [place] [address] Urea nitrogen [Mass/Vol] 36.0 mg/dL High 8.0-22.0 [facility] ([place]) Comment on above: Performed By: #### G FR, ADIFF, FES, ANEU, FERR, CBC, RFP ####[place] [address] [place] [address] URINE CULTUREon 08-02-2021 Bacteria identified Cx Nom (U) ORGANISM 1: ESCHERICHIA COLI COLONY COUNT >100,000 ESCHERICHIA COLI: REACTION AMIKACIN <16 S AMPICILLIN <8 S AZTREONAM <4 S CEFAZOLIN <2 S CEFEPIME <2 S CEFOTAXIME <2 S CEFOTETAN <16 S CEFTAZIDIME <1 S CIPROFLOXACIN >2 R GENTAMICIN <4 S ERTAPENEM <0.5 S NITROFURANTOIN <32 S PIPERACILLIN/TAZOBACTAM <16 S TETRACYCLINE <4 S TOBRAMYCIN <4 S TRIMETH/SULFA >2/38 R LEVOFLOXACIN >4 R MEROPENEM <1 S Normal [facility] Comment on above: Performed By: #### M [id number] #### [address] [address] PH# [phone] CYTOLOGY NON-GYNon Case Report Medical Cytology Rep ort Case: [id number] Authorizing Provider: Yovani Peoples MD Collected: 07/12/2021 02:33 PM Ordering Location: Urology Received: 07/12/2021 09:14 PM Pathologist: Rhiannon Azevedo MD Specimen: URINE VOIDED [facility] Clinical History bladder cancer [facility] FINAL DIAGNOSIS A - URINE VOIDED Negative for high-grade urothelial carcinoma. Acute inflammation [facility] Gross Description A. URINE VOIDED. 40 cc clear yellow fluid. ThinPrep prepared. [facility] Performing Lab Technical component, health and human performance professor screening performed at [facility], [address] [facility] [address] CLIA# [id number] Diagnostic interpretation performed at [facility], [address] [facility] [address] CLIA# [id number] Entertainment Agent: Boston Boo M.D. [facility] .Auto Diffon 07-13-2021 Basophil, Absolute 0.10 10 3/mcL Normal 0.00-0.27 [facility] ([place]) Comment on above: Performed By: #### G FR, RFP, ANEU, ADIFF, FE, PTH, CBC, FERR ####[address] [address] Basophils/100 WBC (Bld) 0.9 % Normal 0.0-2.5 A [facility] ([place]) Comment on above: Performed By: #### G FR, RFP, ANEU, ADIFF, FE, PTH, CBC, FERR ####[address] [address] Eosinophil, Absolute 0.30 10 3/mcL Normal 0.00-0.65 [facility] ([place]) Comment on above: Performed By: #### G FR, RFP, ANEU, ADIFF, FE, PTH, CBC, FERR ####[address] [address] Eosinophils/100 WBC (Bld) 4.5 % Normal 0.0-6.0 [facility] ([place]) Comment on above: Performed By: #### G FR, RFP, ANEU, ADIFF, FE, PTH, CBC, FERR ####[address] [address] Lymphocyte, Absolute 1.60 10 3/mcL Normal 0.90-4.32 [facility] ([place]) Comment on above: Performed By: #### G FR, RFP, ANEU, ADIFF, FE, PTH, CBC, FERR ####[address] [address] Lymphocytes/100 WBC (Bld) 21.7 % Normal 20.0-40.0 [facility] ([place]) Comment on above: Performed By: #### G FR, RFP, ANEU, ADIFF, FE, PTH, CBC, FERR ####[address] [address] Monocyte, Absolute 0.40 10 3/mcL Normal 0.09-1.40 [facility] ([place]) Comment on above: Performed By: #### G FR, RFP, ANEU, ADIFF, FE, PTH, CBC, FERR ####[address] [address] Monocytes/100 WBC (Bld) 5.7 % Normal 2.0-13.0 [facility] ([place]) Comment on above: Performed By: #### G FR, RFP, ANEU, ADIFF, FE, PTH, CBC, FERR ####[address] [address] Neutrophils/100 WBC (Bld) 67.2 % Normal 50.0-75.0 [facility] ([place]) Comment on above: Performed By: #### G FR, RFP, ANEU, ADIFF, FE, PTH, CBC, FERR ####[address] [address] .GFRon 07-13-2021 GFR 26 ml/min/1.73sqm Normal [facility] ([place]) Comment on above: Result Comment: GFR Population mean for , Non- Americans Ages 20-29 = 116 mL/min/1.73 sq.m. Ages 30-39 = 107 mL/min/1.73 sq.m. Ages 40-49 = 99 mL/min/1.73 sq.m. Ages 50-59 = 93 mL/min/1.73 sq.m. Ages 60-69 = 85 mL/min/1.73 sq.m. Ages 70+ = 75 mL/min/1.73 sq.m.Chronic Kidney Disease: Less than 60 mL/min/1.73 square metersEnd Stage Renal Disease: Less than 15 mL/min/1.73 square meters Performed By: #### G FR, RFP, ANEU, ADIFF, FE, PTH, CBC, FERR ####[place] [address] GFR Non- 22 ml/min/1.73sqm Normal [facility] ([place]) Comment on above: Result Comment: GFR Population mean for , Non- Americans Ages 20-29 = 116 mL/min/1.73 sq.m. Ages 30-39 = 107 mL/min/1.73 sq.m. Ages 40-49 = 99 mL/min/1.73 sq.m. Ages 50-59 = 93 mL/min/1.73 sq.m. Ages 60-69 = 85 mL/min/1.73 sq.m. Ages 70+ = 75 mL/min/1.73 sq.m.Chronic Kidney Disease: Less than 60 mL/min/1.73 square metersEnd Stage Renal Disease: Less than 15 mL/min/1.73 square meters Performed By: #### G FR, RFP, ANEU, ADIFF, FE, PTH, CBC, FERR ####[place] [address] .NEUABSon 07-13-2021 Neutrophil, Absolute 4.90 10 3/mcL Normal 2.25-8.10 [facility] ([place]) Comment on above: Performed By: #### G FR, RFP, ANEU, ADIFF, FE, PTH, CBC, FERR ####[place] [address] CBCon 07-13-2021 Erythrocyte distribution width (RBC) [Ratio] 15.6 % High 11.5-15.5 [facility] ([place]) Comment on above: Performed By: #### G FR, RFP, ANEU, ADIFF, FE, PTH, CBC, FERR ####[place] [address] Hematocrit (Bld) [Volume fraction] 28.5 % Low 34.0-46.0 [facility] ([place]) Comment on above: Performed By: #### G FR, RFP, ANEU, ADIFF, FE, PTH, CBC, FERR ####[place] [address] Hgb 9.7 G/dL Low 12.0-16.0 [facility] ([place]) Comment on above: Performed By: #### G FR, RFP, ANEU, ADIFF, FE, PTH, CBC, FERR ####[place] [address] MCH (RBC) [Entitic mass] 29.7 pg Normal 27.0-33.0 [facility] ([place]) Comment on above: Performed By: #### G FR, RFP, ANEU, ADIFF, FE, PTH, CBC, FERR ####[place] [address] MCHC 33.9 G/dL Normal 32.0-36.0 [facility] ([place]) Comment on above: Performed By: #### G FR, RFP, ANEU, ADIFF, FE, PTH, CBC, FERR ####[place] [address] MCV (RBC) [Entitic vol] 87.8 fL Normal 80.0-99.0 A [facility] ([place]) Comment on above: Performed By: #### G FR, RFP, ANEU, ADIFF, FE, PTH, CBC, FERR ####[place] [address] Platelet 248 10 3/mcL Normal 150-450 [facility] ([place]) Comment on above: Performed By: #### G FR, RFP, ANEU, ADIFF, FE, PTH, CBC, FERR ####[place] [address] Platelet mean volume (Bld) [Entitic vol] 8.0 fL Normal 6.6-10.5 [facility] ([place]) Comment on above: Performed By: #### G FR, RFP, ANEU, ADIFF, FE, PTH, CBC, FERR ####[place] [address] RBC 3.25 10 6/mcL Low 4.10-5.30 [facility] ([place]) Comment on above: Performed By: #### G FR, RFP, ANEU, ADIFF, FE, PTH, CBC, FERR ####[place] [address] WBC 7.40 10 3/mcL Normal 4.50-10.80 [facility] ([place]) Comment on above: Performed By: #### G FR, RFP, ANEU, ADIFF, FE, PTH, CBC, FERR ####[place] [address] FEon 07-13-2021 Iron [Mass/Vol] 41 ug/dL Low 50-170 [facility] ([place]) Comment on above: Performed By: #### G FR, RFP, ANEU, ADIFF, FE, PTH, CBC, FERR ####[place] [address] [place] 07-13-2021 Ferritin [Mass/Vol] 136.8 ng/mL Normal 8.0-252.0 [facility], [facility] ([place]) Comment on above: Performed By: #### G FR, RFP, ANEU, ADIFF, FE, PTH, CBC, FERR ####[place] [address] LABORATORYOrdered By: SYSTEM SYSTEM on 07-13-2021 Albumin [Mass/Vol] 2.6 G/dL Invalid Interpretation Code 3.2 - 4.8 G/dL ADM SS Base excess Calc (BldMV) [Moles/Vol] 5.0 mEq/L Invalid Interpretation Code 4.0 - 15.0 mEq/L AH ADM SS Basophils (Bld) [#/Vol] 0.10 103/mcL Invalid Interpretation Code 0.00 - 0.27 10^3/mcL AH Remisol SS Basophils/100 WBC (Bld) 0.9 % Invalid Interpretation Code 0.0 - 2.5 % AH Remisol SS Calcium [Mass/Vol] 9.1 mg/dL Invalid Interpretation Code 8.4 - 10.1 mg/dL AH ADM SS Chloride [Moles/Vol] 108 mmol/L Invalid Interpretation Code 98 - 110 mEq/L AH ADM SS CO2 [Moles/Vol] 26 mmol/L Invalid Interpretation Code 22 - 32 mEq/L AH ADM SS Creatinine [Mass/Vol] 2.19 mg/dL Invalid Interpretation Code 0.50 - 1.20 mg/dL AH ADM SS Eosinophils (Bld) [#/Vol] 0.30 103/mcL Invalid Interpretation Code 0.00 - 0.65 10^3/mcL AH Remisol SS Eosinophils/100 WBC (Bld) 4.5 % Invalid Interpretation Code 0.0 - 6.0 % AH Remisol SS Erythrocyte distribution width (RBC) [Ratio] 15.6 % Invalid Interpretation Code 11.5 - 15.5 % AH Remisol SS Ferritin [Mass/Vol] 136.8 ng/mL Invalid Interpretation Code 8.0 - 252.0 ng/mL AH ADM SS GFR/1.73 sq M.predicted among blacks MDRD (S/P/Bld) [Vol rate/Area] 26 ml/min/1.73sqm Invalid Interpretation Code AH ADM SS GFR/1.73 sq M.predicted among non-blacks MDRD (S/P/Bld) [Vol rate/Area] 22 ml/min/1.73sqm Invalid Interpretation Code AH ADM SS Glucose [Mass/Vol] 113 mg/dL Invalid Interpretation Code 82 - 115 mg/dL AH ADM SS Hematocrit (Bld) [Volume fraction] 28.5 % Invalid Interpretation Code 34.0 - 46.0 % AH Remisol SS Hemoglobin (Bld) [Mass/Vol] 9.7 G/dL Invalid Interpretation Code 12.0 - 16.0 G/dL AH Remisol SS Iron [Mass/Vol] 41 ug/dL Invalid Interpretation Code 50 - 170 mcg/dL AH ADM SS Lymphocytes (Bld) [#/Vol] 1.60 103/mcL Invalid Interpretation Code 0.90 - 4.32 10^3/mcL AH Remisol SS Lymphocytes/100 WBC (Bld) 21.7 % Invalid Interpretation Code 20.0 - 40.0 % AH Remisol SS MCH (RBC) [Entitic mass] 29.7 pg Invalid Interpretation Code 27.0 - 33.0 pg AH Remisol SS MCHC (RBC) [Mass/Vol] 33.9 G/dL Invalid Interpretation Code 32.0 - 36.0 G/dL AH Remisol SS MCV (RBC) [Entitic vol] 87.8 fL Invalid Interpretation Code 80.0 - 99.0 fL AH Remisol SS Monocytes (Bld) [#/Vol] 0.40 103/mcL Invalid Interpretation Code 0.09 - 1.40 10^3/mcL AH Remisol SS Monocytes/100 WBC (Bld) 5.7 % Invalid Interpretation Code 2.0 - 13.0 % AH Remisol SS Neutrophils (Bld) [#/Vol] 4.90 103/mcL Invalid Interpretation Code 2.25 - 8.10 10^3/mcL AH Remisol SS Neutrophils/100 WBC (Bld) 67.2 % Invalid Interpretation Code 50.0 - 75.0 % AH Remisol SS Parathyrin.intact [Mass/Vol] 64.1 pg/mL Invalid Interpretation Code 18.5 - 88.0 pg/mL AH ADM SS Phosphate [Mass/Vol] 4.1 mg/dL Invalid Interpretation Code 2.5 - 4.5 mg/dL AH ADM SS Platelet mean volume (Bld) [Entitic vol] 8.0 fL Invalid Interpretation Code 6.6 - 10.5 fL AH Remisol SS Platelets (Bld) [#/Vol] 248 103/mcL Invalid Interpretation Code 150 - 450 10^3/mcL AH Remisol SS Potassium [Moles/Vol] 4.2 mmol/L Invalid Interpretation Code 3.5 - 5.0 mEq/L AH ADM SS RBC (Bld) [#/Vol] 3.25 106/mcL Invalid Interpretation Code 4.10 - 5.30 10^6/mcL AH Remisol SS Sodium [Moles/Vol] 139 mmol/L Invalid Interpretation Code 136 - 145 mEq/L AH ADM SS Urea nitrogen [Mass/Vol] 34.0 mg/dL Invalid Interpretation Code 8.0 - 22.0 mg/dL AH ADM SS Urea nitrogen/Creatinine [Mass ratio] 15.5 ratio Invalid Interpretation Code 10.0 - 22.0 ratio AH ADM SS WBC (Bld) [#/Vol] 7.40 103/mcL Invalid Interpretation Code 4.50 - 10.80 10^3/mcL AH Remisol SS PTHon 07-13-2021 PTH, Intact 64.1 pg/mL Normal 18.5-88.0 [facility] ([place]) Comment on above: Performed By: #### G FR, RFP, ANEU, ADIFF, FE, PTH, CBC, FERR ####[place] [address] RFPon 07-13-2021 Albumin Level 2.6 G/dL Low 3.2-4.8 [facility] ([place]) Comment on above: Performed By: #### G FR, RFP, ANEU, ADIFF, FE, PTH, CBC, FERR ####[place] [address] BUN/Creatinine Ratio 15.5 ratio Normal 10.0-22.0 [facility] ([place]) Comment on above: Performed By: #### G FR, RFP, ANEU, ADIFF, FE, PTH, CBC, FERR ####[address] [address] Calcium [Mass/Vol] 9.1 mg/dL Normal 8.4-10.1 [facility] ([place]) Comment on above: Result Comment: No te - New Reference Range in effect 19 Performed By: #### G FR, RFP, ANEU, ADIFF, FE, PTH, CBC, FERR ####[place] [address] Chloride [Moles/Vol] 108 mmol/L Normal 98-110 [facility] ([place]) Comment on above: Performed By: #### G FR, RFP, ANEU, ADIFF, FE, PTH, CBC, FERR ####[place] [id number] CO2 [Moles/Vol] 26 mmol/L Normal 22-32 [facility] ([place]) Comment on above: Performed By: #### G FR, RFP, ANEU, ADIFF, FE, PTH, CBC, FERR ####[place] [address] Creatinine [Mass/Vol] 2.19 mg/dL High 0.50-1.20 [facility] ([place]) Comment on above: Performed By: #### G FR, RFP, ANEU, ADIFF, FE, PTH, CBC, FERR ####[place] [address] Electrolyte Balance 5.0 mEq/L Normal 4.0-15.0 [facility] ([place]) Comment on above: Performed By: #### G FR, RFP, ANEU, ADIFF, FE, PTH, CBC, FERR ####[address] [address] Glucose [Mass/Vol] 113 mg/dL Normal 82-115 [facility] ([place]) Comment on above: Performed By: #### G FR, RFP, ANEU, ADIFF, FE, PTH, CBC, FERR ####[address] [address] Phosphate [Mass/Vol] 4.1 mg/dL Normal 2.5-4.5 [facility] ([place]) Comment on above: Result Comment: No te - New Reference Range in effect 19 Performed By: #### G FR, RFP, ANEU, ADIFF, FE, PTH, CBC, FERR ####[address] [address] Potassium [Moles/Vol] 4.2 mmol/L Normal 3.5-5.0 [facility] ([place]) Comment on above: Performed By: #### G FR, RFP, ANEU, ADIFF, FE, PTH, CBC, FERR ####[address] [address] Sodium [Moles/Vol] 139 mmol/L Normal 136-145 [facility] ([place]) Comment on above: Performed By: #### G FR, RFP, ANEU, ADIFF, FE, PTH, CBC, FERR ####[address] [address] Urea nitrogen [Mass/Vol] 34.0 mg/dL High 8.0-22.0 [facility] ([place]) Comment on above: Performed By: #### G FR, RFP, ANEU, ADIFF, FE, PTH, CBC, FERR ####[address] [address] UA DIP, URINE (POC)on 2021 BILIRUBIN UA (POCT) Negative Negative [facility] CLARITY UA (POCT) Clear [facility] COLOR UA (POCT) Yellow [facility] GLUCOSE UA (POCT) Negative Negative mg/dL [facility] HEMOGLOBIN/BLOOD UA (POCT) Negative Negative [facility] KETONE UA (POCT) Negative Negative mg/dL [facility] LEUKOCYTES UA (POCT) Negative Negative [facility] NITRITE UA (POCT) Negative Negative [facility] PH UA (POCT) 6.0 4.5 - 8.0 [facility] Protein Ql (U) >=300 Abnormal Negative mg/dL [facility] SPECIFIC GRAVITY UA (POCT) 1.025 1.005 - 1.030 [facility] UROBILINOGEN UA (POCT) 0.2 E.U./dL Sivan l E.U./dL [facility] ERYTHon 06-29-2021 Erythropoietin 19.0 mIU/mL High 2.6-18.5 [facility] ([place]) Comment on above: Result Comment: Test analyzed by the ViaCube DxI method.Performed By:[facility] [address] [place], [place] [address]Ryx Director: Boston Boo III, M.D.CLIA#: [id number] Performed By: #### I BC, FE, EPO, FERR ####[address] [address] .GFRon 06-28-2021 GFR 27 ml/min/1.73sqm Normal [facility] ([place]) Comment on above: Result Comment: GFR Population mean for , Non- Americans Ages 20-29 = 116 mL/min/1.73 sq.m. Ages 30-39 = 107 mL/min/1.73 sq.m. Ages 40-49 = 99 mL/min/1.73 sq.m. Ages 50-59 = 93 mL/min/1.73 sq.m. Ages 60-69 = 85 mL/min/1.73 sq.m. Ages 70+ = 75 mL/min/1.73 sq.m.Chronic Kidney Disease: Less than 60 mL/min/1.73 square metersEnd Stage Renal Disease: Less than 15 mL/min/1.73 square meters Performed By: #### G FR, BMP ####[address] [address] GFR Non- 23 ml/min/1.73sqm Normal [facility] ([place]) Comment on above: Result Comment: GFR Population mean for , Non- Americans Ages 20-29 = 116 mL/min/1.73 sq.m. Ages 30-39 = 107 mL/min/1.73 sq.m. Ages 40-49 = 99 mL/min/1.73 sq.m. Ages 50-59 = 93 mL/min/1.73 sq.m. Ages 60-69 = 85 mL/min/1.73 sq.m. Ages 70+ = 75 mL/min/1.73 sq.m.Chronic Kidney Disease: Less than 60 mL/min/1.73 square metersEnd Stage Renal Disease: Less than 15 mL/min/1.73 square meters Performed By: #### Kenna BELL, BMP ####[address] [address] BMPon 06-28-2021 BUN/Creatinine Ratio 14.8 ratio Normal 10.0-22.0 [facility] ([place]) Comment on above: Performed By: #### Kenna BELL, BMP ####[address] [address] Calcium [Mass/Vol] 9.6 mg/dL Normal 8.7-10.4 [facility] ([place]) Comment on above: Result Comment: No te - New Reference Range in effect 19 Performed By: #### Kenna BELL, BMP ####[address] [address] Chloride [Moles/Vol] 106 mmol/L Normal 98-110 [facility] ([place]) Comment on above: Performed By: #### Kenna BELL, BMP ####[address] [address] CO2 [Moles/Vol] 25 mmol/L Normal 22-32 [facility] ([place]) Comment on above: Performed By: #### Kenna BELL, BMP ####[address] [address] Creatinine [Mass/Vol] 2.10 mg/dL High 0.50-1.20 [facility] ([place]) Comment on above: Performed By: #### Kenna BELL, BMP ####[address] [address] Electrolyte Balance 5.0 mEq/L Normal 4.0-15.0 [facility] ([place]) Comment on above: Performed By: #### G FR, BMP ####[place] [address] Glucose [Mass/Vol] 116 mg/dL High 82-115 [facility] ([place]) Comment on above: Performed By: #### G , BMP ####[place] [address] Potassium [Moles/Vol] 4.4 mmol/L Normal 3.5-5.0 [facility] ([place]) Comment on above: Performed By: #### G FR, BMP ####[place] [address] Sodium [Moles/Vol] 136 mmol/L Normal 136-145 [facility] ([place]) Comment on above: Performed By: #### G , BMP ####[place] [address] Urea nitrogen [Mass/Vol] 31.0 mg/dL High 8.0-22.0 [facility] ([place]) Comment on above: Performed By: #### G , BMP ####[place] [address] FEon 06-28-2021 Iron [Mass/Vol] 52 ug/dL Normal 50-170 [facility] ([place]) Comment on above: Performed By: #### I BC, FE, EPO, FERR ####[place] [address] Nicolette 06-28-2021 Ferritin [Mass/Vol] 171.1 ng/mL Normal 8.0-252.0 [facility] ([place]) Comment on above: Performed By: #### I BC, FE, EPO, FERR ####[place] [address] IBCon 06-28-2021 TIBC 277 mcg/dL Normal 250-500 [facility] ([place]) Comment on above: Performed By: #### I BC, FE, EPO, FERR ####[place] [address] .GFRon 06-19-2021 GFR 27 ml/min/1.73sqm Normal [facility] ([place]) Comment on above: Result Comment: GFR Population mean for , Non- Americans Ages 20-29 = 116 mL/min/1.73 sq.m. Ages 30-39 = 107 mL/min/1.73 sq.m. Ages 40-49 = 99 mL/min/1.73 sq.m. Ages 50-59 = 93 mL/min/1.73 sq.m. Ages 60-69 = 85 mL/min/1.73 sq.m. Ages 70+ = 75 mL/min/1.73 sq.m.Chronic Kidney Disease: Less than 60 mL/min/1.73 square metersEnd Stage Renal Disease: Less than 15 mL/min/1.73 square meters Performed By: #### L IPID, GFR, BMP, HGMP ####[address] [address] GFR Non- 23 ml/min/1.73sqm Normal [facility] ([place]) Comment on above: Result Comment: GFR Population mean for , Non- Americans Ages 20-29 = 116 mL/min/1.73 sq.m. Ages 30-39 = 107 mL/min/1.73 sq.m. Ages 40-49 = 99 mL/min/1.73 sq.m. Ages 50-59 = 93 mL/min/1.73 sq.m. Ages 60-69 = 85 mL/min/1.73 sq.m. Ages 70+ = 75 mL/min/1.73 sq.m.Chronic Kidney Disease: Less than 60 mL/min/1.73 square metersEnd Stage Renal Disease: Less than 15 mL/min/1.73 square meters Performed By: #### L IPID, GFR, BMP, HGMP ####[place] [address] [place] [address] BMPon 06-19-2021 BUN/Creatinine Ratio 14.3 ratio Normal 10.0-22.0 [facility] ([place]) Comment on above: Performed By: #### L IPID, GFR, BMP, HGMP ####[place] [address] [place] [address] Calcium [Mass/Vol] 9.5 mg/dL Normal 8.7-10.4 [facility] ([place]) Comment on above: Result Comment: No te - New Reference Range in effect 19 Performed By: #### L IPID, GFR, BMP, HGMP ####[address] [address] Chloride [Moles/Vol] 108 mmol/L Normal 98-110 [facility] ([place]) Comment on above: Performed By: #### L IPID, GFR, BMP, HGMP ####[address] [address] CO2 [Moles/Vol] 25 mmol/L Normal 22-32 [facility] ([place]) Comment on above: Performed By: #### L IPID, GFR, BMP, HGMP ####[address] [address] Creatinine [Mass/Vol] 2.10 mg/dL High 0.50-1.20 [facility] ([place]) Comment on above: Performed By: #### L IPID, GFR, BMP, HGMP ####[address] [address] Electrolyte Balance 7.0 mEq/L Normal 4.0-15.0 [facility] ([place]) Comment on above: Performed By: #### L IPID, GFR, BMP, HGMP ####[address] [address] Glucose [Mass/Vol] 104 mg/dL Normal 82-115 [facility] ([place]) Comment on above: Performed By: #### L IPID, GFR, BMP, HGMP ####[address] [address] Potassium [Moles/Vol] 4.5 mmol/L Normal 3.5-5.0 [facility] ([place]) Comment on above: Performed By: #### L IPID, GFR, BMP, HGMP ####[address] [address] Sodium [Moles/Vol] 140 mmol/L Normal 136-145 [facility] ([place]) Comment on above: Performed By: #### L IPID, GFR, BMP, HGMP ####[address] [address] Urea nitrogen [Mass/Vol] 30.0 mg/dL High 8.0-22.0 [facility] ([place]) Comment on above: Performed By: #### L IPID, GFR, BMP, HGMP ####[address] [address] LIPIDon 06-19-2021 Cholesterol [Mass/Vol] 208 mg/dL High 50-199 [facility] ([place]) Comment on above: Result Comment: Chol esterol Reference Interval:Less than 200 [id number] Borderline high [id number] and above High risk Performed By: #### L IPID, GFR, BMP, HGMP ####[place] [address] Cholesterol in HDL [Mass/Vol] 46 mg/dL Normal 40-59 [facility] ([place]) Comment on above: Performed By: #### L IPID, GFR, BMP, HGMP ####[place] [address] Cholesterol in LDL [Mass/Vol] 118 mg/dL Normal 0-129 [facility] ([place]) Comment on above: Performed By: #### L IPID, GFR, BMP, HGMP ####[place] [address] Triglyceride [Mass/Vol] 221 mg/dL High 3-149 A [facility] ([place]) Comment on above: Performed By: #### L IPID, GFR, BMP, HGMP ####[address] [address] HGMPon 06-18-2021 Erythrocyte distribution width (RBC) [Ratio] 17.8 % High 11.5-15.5 [facility] ([place]) Comment on above: Performed By: #### L IPID, GFR, BMP, HGMP ####[address] [address] Hematocrit (Bld) [Volume fraction] 25.7 % Low 34.0-46.0 [facility] ([place]) Comment on above: Performed By: #### L IPID, GFR, BMP, HGMP ####[address] [address] Hgb 8.5 G/dL Low 12.0-16.0 [facility] ([place]) Comment on above: Performed By: #### L IPID, GFR, BMP, HGMP ####[address] [address] MCH (RBC) [Entitic mass] 29.5 pg Normal 27.0-33.0 [facility] ([place]) Comment on above: Performed By: #### L IPID, GFR, BMP, HGMP ####[place] [address] MCHC 33.1 G/dL Normal 32.0-36.0 [facility] ([place]) Comment on above: Performed By: #### L IPID, GFR, BMP, HGMP ####[place] [address] MCV (RBC) [Entitic vol] 89.3 fL Normal 80.0-99.0 A [facility] ([place]) Comment on above: Performed By: #### L IPID, GFR, BMP, HGMP ####[place] [address] Platelet 187 10 3/mcL Normal 150-450 [facility] ([place]) Comment on above: Performed By: #### L IPID, GFR, BMP, HGMP ####[place] [address] Platelet mean volume (Bld) [Entitic vol] 10.1 fL Normal 6.6-10.5 [facility] ([place]) Comment on above: Performed By: #### L IPID, GFR, BMP, HGMP ####[place] [address] RBC 2.88 10 6/mcL Low 4.10-5.30 [facility] ([place]) Comment on above: Performed By: #### L IPID, GFR, BMP, HGMP ####[place] [address] WBC 6.20 10 3/mcL Normal 4.50-10.80 [facility] ([place]) Comment on above: Performed By: #### L IPID, GFR, BMP, HGMP ####[address] [address] GFR ESTon 02-10-2021 IF AMER 32 [facility] Comment on above: Performed By: #### L 500.25148, L500.85269, L500.19713 #### [facility] [address] [place], [place] [id number] IF non-AFR AMER 26 [facility] Comment on above: Performed By: #### L 500.56342, L500.84292, L500.60134 #### [facility] [address] [place] [address] PBNP TESTon 02-10-2021 Natriuretic peptide B (Bld) [Mass/Vol] 734 pg/mL High 0-450 [facility] Comment on above: Result Comment: NT-p roBNP results of less than 300 pg/ml likely rules out acute congestive heart failure with 99% predictive value. NOTE: These cuttoff points are suggested for ACUTE CHF DIAGNOSIS only Less than 50 years Greater than 450 pg/ml 50-75 years Greater than 900 pg/ml Greater than 75 years Greater than 1800 pg/ml NOTE NEW NORMAL RANGE Performed By: #### L 500.58961, L500.45022, L500.00645 #### [facility] [address] [place], [place] [id number] RENALon 02-10-2021 Albumin [Mass/Vol] 2.7 g/dL Low 3.2-5.0 [facility] Comment on above: Performed By: #### L 500.92082, L500.02521, L500.23523 #### [facility] [address] [place] [address] Anion gap [Moles/Vol] 7 mmol/L Normal - [facility] Comment on above: Performed By: #### L 500.61268, L500.89591, L500.08628 #### [facility] [place] [address] Calcium [Mass/Vol] 9.2 mg/dL Normal 8.5-10.5 [facility] Comment on above: Result Comment: NOTE NEW NORMAL RANGE DUE TO REAGENT CHANGE Performed By: #### L 500.61394, L500.47841, L500.20002 #### [facility] [address] [place] [address] Chloride [Moles/Vol] 104 mmol/L Normal 98-107 [facility] Comment on above: Performed By: #### L 500.90174, L500.46150, L500.09440 #### [facility] [address] [place] [address] CO2 [Moles/Vol] 28.0 mmol/L Normal 21-32 [facility] Comment on above: Performed By: #### L 500.78245, L500.66837, L500.43245 #### [facility] [address] [place] [address] Creatinine [Mass/Vol] 1.83 mg/dL High 0.510-0.950 [facility] Comment on above: Result Comment: Yoly ents receiving either N-Acetylcysteine (NAC) or Metamizole prior to venipuncture, may have falsely depressed results. Performed By: #### L 500.00707, L500.63305, L500.48656 #### [facility] [address] [place], [place] [id number] Glucose [Mass/Vol] 163 mg/dL High 70-100 [facility] Comment on above: Result Comment: 70-1 00- Normal Fasting; 100-125 Impaired Fasting; greater than 126 on more than one result- Diabetes. ADA guidelines. Results may be falsely elevated after the administration of Sulfapyridine. Results may be falsely depressed after the administration of Sulfasalazine. Performed By: #### L 500.79819, L500.36122, L500.25870 #### [facility] [place] [address] Phosphate [Mass/Vol] 3.90 mg/dL Normal 2.5-4.9 [facility] Comment on above: Result Comment: Elev ated m-protein (paraprotein) levels in the serum may be exhibited in patients with monoclonal gammopathies, causing falsely elevated inorganic phosphorus results. Performed By: #### L 500.18030, L500.13782, L500.05845 #### [facility] [address] [place] [address] Potassium [Moles/Vol] 4.0 mmol/L Normal 3.5-5.1 [facility] Comment on above: Result Comment: Slig ht Hemolysis, Result may be affected. Performed By: #### L 500.09877, L500.64668, L500.69682 #### [facility] [address] [place] [address] Sodium [Moles/Vol] 139 mmol/L Normal 136-145 [facility] Comment on above: Performed By: #### L 500.92956, L500.17333, L500.30661 #### [facility] [address] [place] [address] Urea nitrogen [Mass/Vol] 33 mg/dL High 7-26 [facility] Comment on above: Performed By: #### L 500.67653, L500.03811, L500.68439 #### [facility] [address] [place] [address] Urea nitrogen/Creatinine [Mass ratio] 18 mg/mg Normal 15-24 [facility] Comment on above: Performed By: #### L 500.48870, L500.03573, L500.17576 #### [facility] [address] [place] [address] CHEST PA/AP AND LATERALon CHEST PA/AP AND LATERAL PA AND LATERAL C HEST: Clinical Statement: Acute diastolic congestive heart failure Comparison: None FINDINGS: Chest examination reveals no abnormality of the lungs, heart, mediastinum or bony thorax. There is mild blunting of both costophrenic angles. IMPRESSION: Small pleural effusions versus pleural thickening. This report was electronically signed by Frank Sheriff MD 02/05/2021 2:31 PM Reported By: FRANK SHERIFF M.D. Signed By: FRANK SHERIFF M.D. Normal [facility] SCABIES IDon 01-11-2021 SCABIES ID This report has been cancelled Normal [facility] CBCon 01-06-2021 Erythrocyte distribution width (RBC) [Ratio] 13.2 % Normal 11-14.5 [facility] Comment on above: Performed By: #### L 500.95248, L500.32713, L500.78282 #### [facility] [address] [place] [address] Hematocrit (Bld) [Volume fraction] 31.2 % Low 35.0-47.0 [facility] Comment on above: Performed By: #### L 500.86513, L500.30268, L500.27214 #### [facility] [address] [place] [address] Hemoglobin (Bld) [Mass/Vol] 10.2 g/dL Low 11.5-15.5 [facility] Comment on above: Performed By: #### L 500.58184, L500.95358, L500.56534 #### [facility] [address] [place] [address] MCHC (RBC) [Mass/Vol] 32.7 g/dL Normal 32.0-36.0 [facility] Comment on above: Performed By: #### L 500.03365, L500.24904, L500.61594 #### [facility] [address] [place], [place] [id number] MCV (RBC) [Entitic vol] 90.2 fL Normal 80.0-99.0 M [facility] Comment on above: Performed By: #### L 500.32340, L500.65603, L500.47380 #### [facility] [address] [place] [address] PLT 250 K/CU MM Normal 150-450 [facility] Comment on above: Performed By: #### L 500.37740, L500.06305, L500.12214 #### [facility] [address] [place] [address] RBC 3.46 M/CU MM Low 3.9-5.30 [facility] Comment on above: Performed By: #### L 500.19805, L500.68337, L500.86684 #### [facility] [address] [place] [address] WBC 6.2 K/CUMM Normal 4.5-11.0 [facility] Comment on above: Performed By: #### L 500.48984, L500.55459, L500.42447 #### [facility] [address] [place] [address] CMPon 01-06-2021 Albumin [Mass/Vol] 3.0 g/dL Low 3.2-5.0 [facility] Comment on above: Performed By: #### L 500.84070, L500.60295, L500.83224 #### [facility] [address] [place] [address] Albumin/Globulin [Mass ratio] 0.9 {ratio} Normal 0.8-2.0 [facility] Comment on above: Performed By: #### L 500.84890, L500.31798, L500.13776 #### [facility] [place] [address] ALK PHOS 49 U/L Normal 45-117 [facility] Comment on above: Performed By: #### L 500.38977, L500.19937, L500.14230 #### [facility] [place] [address] ALT [Catalytic activity/Vol] 22 U/L Normal 13-61 [facility] Comment on above: Result Comment: RESU LTS MAY BE FALSELY DEPRESSED AFTER THE ADMINISTRATION OF SULFASALAZINE AND/OR SULFAPYRIDINE. Performed By: #### L 500.75601, L500.63925, L500.14372 #### [facility] [address] [place] [id number] Anion gap [Moles/Vol] 6 mmol/L Normal 5-16 [facility] Comment on above: Performed By: #### L 500.87420, L500.21739, L500.09116 #### [facility] [address] [place] [id number] AST [Catalytic activity/Vol] 33 U/L Normal 8-34 [facility] Comment on above: Result Comment: RESU LTS MAY BE FALSELY DEPRESSED AFTER THE ADMINISTRATION OF SULFASALAZINE AND/OR SULFAPYRIDINE. Performed By: #### L 500.03378, L500.99735, L500.95994 #### [facility] [address] [place] [address] BILI TOTAL 0.20 MG/DL Normal 0.2-1.0 [facility] Comment on above: Performed By: #### L 500.44177, L500.92515, L500.98999 #### [facility] [address] [place] [address] Calcium [Mass/Vol] 9.8 mg/dL Normal 8.5-10.5 [facility] Comment on above: Result Comment: NOTE NEW NORMAL RANGE DUE TO REAGENT CHANGE Performed By: #### L 500.26611, L500.80636, L500.48549 #### [facility] [address] [place], [place] [id number] Chloride [Moles/Vol] 108 mmol/L High 98-107 [facility] Comment on above: Performed By: #### L 500.48025, L500.68582, L500.62061 #### [facility] [address] [place] [address] CO2 [Moles/Vol] 27.0 mmol/L Normal 21-32 [facility] Comment on above: Performed By: #### L 500.11377, L500.88289, L500.46723 #### [facility] [address] [place] [address] Creatinine [Mass/Vol] 1.62 mg/dL High 0.510-0.950 [facility] Comment on above: Result Comment: Yoly ents receiving either N-Acetylcysteine (NAC) or Metamizole prior to venipuncture, may have falsely depressed results. Performed By: #### L 500.39536, L500.66971, L500.19660 #### [facility] [address] [place] [address] Globulin (S) [Mass/Vol] 3.5 g/dL Normal 2.2-4.2 M [facility] Comment on above: Performed By: #### L 500.27131, L500.25797, L500.73996 #### [facility] [address] [place] [address] Glucose [Mass/Vol] 115 mg/dL High 70-100 [facility] Comment on above: Result Comment: 70-1 00- Normal Fasting; 100-125 Impaired Fasting; greater than 126 on more than one result- Diabetes. ADA guidelines. Results may be falsely elevated after the administration of Sulfapyridine. Results may be falsely depressed after the administration of Sulfasalazine. Performed By: #### L 500.35987, L500.23693, L500.81200 #### [facility] [address] [place] [address] Potassium [Moles/Vol] 4.6 mmol/L Normal 3.5-5.1 [facility] Comment on above: Performed By: #### L 500.54167, L500.96498, L500.78364 #### [facility] [address] [place] [address] Protein [Mass/Vol] 6.5 g/dL Normal 6.0-8.5 [facility] Comment on above: Performed By: #### L 500.10262, L500.39293, L500.56027 #### [facility] [address] [place] [address] Sodium [Moles/Vol] 141 mmol/L Normal 136-145 [facility] Comment on above: Performed By: #### L 500.07913, L500.38435, L500.93925 #### [facility] [address] [place] [address] Urea nitrogen [Mass/Vol] 27 mg/dL High 7-26 [facility] Comment on above: Performed By: #### L 500.49416, L500.46222, L500.53304 #### [facility] [address] [place] [address] Urea nitrogen/Creatinine [Mass ratio] 17 mg/mg Normal 15-24 [facility] Comment on above: Performed By: #### L 500.36933, L500.96877, L500.87235 #### [facility] [address] [place] [address] GFR ESTon 01-06-2021 IF AMER 37 Normal [facility] Comment on above: Performed By: #### L 500.74655, L500.74628, L500.19163 #### [facility] [address] [place] [address] IF non-AFR AMER 30 Normal [facility] Comment on above: Performed By: #### L 500.57069, L500.76986, L500.66221 #### [facility] [address] [place] [address] LIPIDon 01-06-2021 CHOL 174 MG/dL Normal 0-199 [facility] Comment on above: Performed By: #### L 500.76763, L500.86552, L500.56262 #### [facility] [address] [place] [address] Cholesterol in HDL [Mass/Vol] 41 mg/dL Normal GREATER THAN 40 [facility] Comment on above: Result Comment: Yoly ents receiving Metamizole prior to venipuncture, may have falsely depressed results. Performed By: #### L 500.01060, L500.70995, L500.20985 #### [facility] [address] [place] [address] Cholesterol in LDL [Mass/Vol] 83 mg/dL Normal [facility] Comment on above: Result Comment: ___C HOLESTEROL/HDL RATIO RISK___ CHD RISK = Total CHOL LDL HDL (CHOL/HDL) Recommended <200 <130 >40 <3.4 Borderline 200-239 130-159 3.4-4.99 High >240 >160 >5.0 Performed By: #### L 500.47163, L500.58699, L500.68917 #### [facility] [address] [place] [address] Triglyceride [Mass/Vol] 246 mg/dL High 30-149 M [facility] Comment on above: Result Comment: Yoly ents receiving either N-Acetylcysteine (NAC) or Metamizole prior to venipuncture, may have falsely depressed results. Performed By: #### L 500.90802, L500.32949, L500.12039 #### [facility] [address] [place] [address] BILI DIRECTon 11-28-2020 BILI DIRECT LESS THAN 0.1 Normal 0.00-0.36 [facility] Comment on above: Result Comment: NOTE NEW NORMAL RANGE DUE TO REAGENT CHANGE Performed By: #### L 500.94053, L500.83308, L500.12444 #### [facility] [address] [place] [address] CBC W/DIFFon 11-28-2020 BASO ABS 0.10 K/CU MM Normal 0-0.2 [facility] Comment on above: Performed By: #### L 500.96380, L500.14736, L500.19641 #### [facility] [address] [place] [address] Basophils/100 WBC (Bld) 0.7 % Normal 0-2 M [facility] Comment on above: Performed By: #### L 500.23186, L500.08433, L500.11529 #### [facility] [address] [place] [address] EOS ABS 0.30 K/CU MM Normal 0-0.5 [facility] Comment on above: Performed By: #### L 500.97381, L500.74262, L500.17768 #### [facility] [address] [place] [address] Eosinophils/100 WBC (Bld) 3.7 % Normal 0-5 [facility] Comment on above: Performed By: #### L 500.74202, L500.42010, L500.47648 #### [facility] [address] [place] [address] Erythrocyte distribution width (RBC) [Ratio] 21.4 % High 11-14.5 [facility] Comment on above: Performed By: #### L 500.92960, L500.70533, L500.62814 #### [facility] [address] [place] [address] Hematocrit (Bld) [Volume fraction] 29.4 % Low 35.0-47.0 [facility] Comment on above: Performed By: #### L 500.46862, L500.89958, L500.98884 #### [facility] [address] [place] [address] Hemoglobin (Bld) [Mass/Vol] 9.2 g/dL Low 11.5-15.5 [facility] Comment on above: Performed By: #### L 500.29817, L500.18645, L500.44627 #### [facility] [address] [place] [address] IMMATR GRAN ABS 0.10 K/CU MM Normal Less than 2 [facility] Comment on above: Performed By: #### L 500.20867, L500.37220, L500.62086 #### [facility] [address] [place] [address] IMMATURE GRAN % 1.3 % Normal Less than 2 [facility] Comment on above: Performed By: #### L 500.25386, L500.68058, L500.79068 #### [facility] [address] [place] [address] LYMPH ABS 1.70 K/CU MM Normal 0.9-4.4 [facility] Comment on above: Performed By: #### L 500.69480, L500.24026, L500.43373 #### [facility] [address] [place] [address] Lymphocytes/100 WBC (Bld) 24.9 % Normal 20-40 [facility] Comment on above: Performed By: #### L 500.28567, L500.15938, L500.15909 #### [facility] [address] [place] [address] MCHC (RBC) [Mass/Vol] 31.3 g/dL Low 32.0-36.0 [facility] Comment on above: Performed By: #### L 500.79503, L500.63259, L500.22154 #### [facility] [address] [place] [address] MCV (RBC) [Entitic vol] 90.2 fL Normal 80.0-99.0 M [facility] Comment on above: Performed By: #### L 500.67815, L500.55111, L500.57382 #### [facility] [address] [place] [address] MONO ABS 0.40 K/CU MM Normal 0.1-1.1 [facility] Comment on above: Performed By: #### L 500.71575, L500.66505, L500.17901 #### [facility] [address] [place] [address] Monocytes/100 WBC (Bld) 6.6 % Normal 2-10 M [facility] Comment on above: Performed By: #### L 500.72220, L500.06051, L500.97872 #### [facility] [address] [place] [address] NEUTROPHIL ABS 4.20 K/CU MM Normal 2.0-8.3 [facility] Comment on above: Performed By: #### L 500.25799, L500.33050, L500.40485 #### [facility] [address] [place] [address] Neutrophils/100 WBC (Bld) 62.8 % Normal 45-75 [facility] Comment on above: Performed By: #### L 500.90672, L500.70394, L500.73763 #### [facility] [address] [place] [address] Nucleated RBC/100 WBC (Bld) [Ratio] 0.0 % Normal Less than 1 [facility] Comment on above: Performed By: #### L 500.73876, L500.72494, L500.80102 #### [facility] [address] [place] [address] Platelet mean volume (Bld) [Entitic vol] 11.2 fL Normal 9.4-12.4 [facility] Comment on above: Performed By: #### L 500.41887, L500.03455, L500.70409 #### [facility] [address] [place] [address] PLT 319 K/CU MM Normal 150-450 [facility] Comment on above: Performed By: #### L 500.84253, L500.99887, L500.96017 #### [facility] [address] [place] [address] 24813 RBC 3.26 M/CU MM Low 3.90-5.30 [facility] Comment on above: Performed By: #### L 500.57233, L500.64206, L500.40380 #### [facility] [address] [place] [address] WBC 6.7 K/CUMM Normal 4.5-11.0 [facility] Comment on above: Performed By: #### L 500.06689, L500.55034, L500.66669 #### [facility] [address] [place] [address] CMPon 11-28-2020 Albumin [Mass/Vol] 3.2 g/dL Normal 3.2-5.0 [facility] Comment on above: Performed By: #### L 500.41884, L500.26435, L500.86034, L500.84177 #### [facility] [address] [place] [address] Albumin/Globulin [Mass ratio] 1.1 {ratio} Normal 0.8-2.0 [facility] Comment on above: Performed By: #### L 500.28292, L500.49534, L500.91391, L500.09637 #### [facility] [address] [place], [place] [id number] ALK PHOS 55 U/L Normal 45-117 [facility] Comment on above: Performed By: #### L 500.49048, L500.76184, L500.64873, L500.07120 #### [facility] [address] [place] [address] ALT [Catalytic activity/Vol] 12 U/L Low 13-61 [facility] Comment on above: Result Comment: RESU LTS MAY BE FALSELY DEPRESSED AFTER THE ADMINISTRATION OF SULFASALAZINE AND/OR SULFAPYRIDINE. Performed By: #### L 500.09486, L500.78433, L500.68997, L500.38286 #### [facility] [place] [address] Anion gap [Moles/Vol] 5 mmol/L Normal 5-16 [facility] Comment on above: Performed By: #### L 500.54243, L500.21271, L500.71912, L500.64843 #### [facility] [place] [address] AST [Catalytic activity/Vol] 19 U/L Normal 8-34 [facility] Comment on above: Result Comment: RESU LTS MAY BE FALSELY DEPRESSED AFTER THE ADMINISTRATION OF SULFASALAZINE AND/OR SULFAPYRIDINE. Performed By: #### L 500.95199, L500.40940, L500.29832, L500.80671 #### [facility] [address] [place] [address] BILI TOTAL 0.20 MG/DL Normal 0.2-1.0 [facility] Comment on above: Performed By: #### L 500.92320, L500.48984, L500.27163, L500.33588 #### [facility] [place] [address] Calcium [Mass/Vol] 9.6 mg/dL Normal 8.5-10.5 [facility] Comment on above: Result Comment: NOTE NEW NORMAL RANGE DUE TO REAGENT CHANGE Performed By: #### L 500.89727, L500.53137, L500.48349, L500.14566 #### [facility] [place] [address] Chloride [Moles/Vol] 106 mmol/L Normal 98-107 [facility] Comment on above: Performed By: #### L 500.71227, L500.13467, L500.96356, L500.34535 #### [facility] [address] [place] [address] CO2 [Moles/Vol] 25.0 mmol/L Normal 21-32 [facility] Comment on above: Performed By: #### L 500.79007, L500.29317, L500.80348, L500.20936 #### [facility] [address] [place] [address] Creatinine [Mass/Vol] 1.65 mg/dL High 0.510-0.950 [facility] Comment on above: Result Comment: Yoly ents receiving either N-Acetylcysteine (NAC) or Metamizole prior to venipuncture, may have falsely depressed results. Performed By: #### L 500.01965, L500.33539, L500.90495, L500.09168 #### [facility] [address] [place] [address] Globulin (S) [Mass/Vol] 3.0 g/dL Normal 2.2-4.2 M [facility] Comment on above: Performed By: #### L 500.86236, L500.04802, L500.30295, L500.21869 #### [facility] [address] [place] [address] Glucose [Mass/Vol] 89 mg/dL Normal 70-100 [facility] Comment on above: Result Comment: 70-1 00- Normal Fasting; 100-125 Impaired Fasting; greater than 126 on more than one result- Diabetes. ADA guidelines. Results may be falsely elevated after the administration of Sulfapyridine. Results may be falsely depressed after the administration of Sulfasalazine. Performed By: #### L 500.09488, L500.45144, L500.48162, L500.44406 #### [facility] [address] [place], [place] [id number] Potassium [Moles/Vol] 4.7 mmol/L Normal 3.5-5.1 [facility] Comment on above: Performed By: #### L 500.47021, L500.43295, L500.33564, L500.54213 #### [facility] [place] [address] Protein [Mass/Vol] 6.2 g/dL Normal 6.0-8.5 [facility] Comment on above: Performed By: #### L 500.32774, L500.45894, L500.73648, L500.52735 #### [facility] [address] [place] [address] Sodium [Moles/Vol] 136 mmol/L Normal 136-145 [facility] Comment on above: Performed By: #### L 500.96624, L500.42573, L500.59378, L500.52278 #### [facility] [address] [place] [address] Urea nitrogen [Mass/Vol] 34 mg/dL High 7-26 [facility] Comment on above: Performed By: #### L 500.33307, L500.22574, L500.78893, L500.09889 #### [facility] [address] [place] [address] Urea nitrogen/Creatinine [Mass ratio] 21 mg/mg Normal 15-24 [facility] Comment on above: Performed By: #### L 500.96800, L500.55142, L500.99165, L500.86432 #### [facility] [address] [place] [address] GFR ESTon 11-28-2020 IF AMER 36 Normal [facility] Comment on above: Performed By: #### L 500.39486, L500.91885, L500.98483, L500.83681 #### [facility] [address] [place] [address] IF non-AFR AMER 30 Normal [facility] Comment on above: Performed By: #### L 500.10074, L500.15269, L500.90104, L500.35122 #### [facility] [address] [place] [address] PHOSon 11-28-2020 Phosphate [Mass/Vol] 4.30 mg/dL Normal 2.5-4.9 [facility] Comment on above: Result Comment: Elev ated m-protein (paraprotein) levels in the serum may be exhibited in patients with monoclonal gammopathies, causing falsely elevated inorganic phosphorus results. Performed By: #### L 500.92088, L500.35952, L500.31081, L500.74307 #### [facility] [address] [place] [address] EKGon 10-06-2020 Electrocardiogram Procedure Date and T misty: 10/06/20843 Test Reason : URGENT Blood Pressure : / mmHG Vent. Rate : 064 BPM Atrial Rate : 064 BPM P-R Int : 190 ms QRS Dur : 080 ms QT Int : 398 ms P-R-T Axes : 011 043 087 degrees QTc Int : 410 ms Normal sinus rhythm Left ventricular hypertrophy Abnormal ECG When compared with ECG of 25-MAR-2018 09:50, No significant change was found Confirmed by Luz Fuentes ([id number]) on 10/07/2020 1:32:22 PM Referred By: Sanchez Anguiano Confirmed By:Luz Fuentes M.D. DDandT: 10/06/20843 TDandT: [facility] PATIENT NAME: LAVINIA DURAND [address] [facility] [address] MEDICAL REC #: [id number] [place] [address] ADMIT DATE: DISCHARGE DATE: ATTENDING PHY: Sanchez Anguiano MD ELECTROCARDIOGRAM REPORT CLB cc: [facility] PATIENT NAME: LAVINIA DURAND [facility] [address] MEDICAL REC #: [id number] [place] [address] ADMIT DATE: DISCHARGE DATE: ATTENDING PHY: Sanchez Anguiano MD ELECTROCARDIOGRAM REPORT Normal [facility] GLUCOSE METERon 10-06-2020 Glucose [Mass/Vol] 130 mg/dL High 85-125 [facility] Glucose [Mass/Vol] 142 mg/dL High 85-125 [facility] Operative Report Normal [facility] OR.OPRPT [facility] Patient Name: LAVINIA DURAND [facility] [address] Date of : [address] [address] Unit Number: [id number] Operative Report Patient Status: REG SDC Attending Doctor: Sanchez Anguiano MD Service Date: 10/06/20 1023 Operative Report Procedure Date: 10/06/20 Attending Physician: Sanchez Anguiano MD Procedure: Preoperative Diagnosis: [] Renal pelvis mass 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 The patient had cystoscopy that revealed no exophytic lesions masses or growths. The patient then had a retrograde placed up the right ureteral orifice that revealed what appeared to be a filling defect in the renal pelvis. The patient then had a Glidewire and a second Glidewire placed slight dilation with the dual-lumen catheter was performed while placing the wires. The patient then had the flexible scope attempted to be slid up the ureter but resistance and would not bypass. Patient then had a ureteral access sheath placed and then the scope was easily advanced into the upper collecting system and the proximal ureter had no lesions however immediately in the renal pelvis it was obvious that there was a large papillary lesion typical of transitional cell and other papillary clusters on the sidewalls of the renal pelvis as well. Patient had pictures taken and given to the patient to take when she is referred to a tertiary care center. The patient then had 2 glide wires placed up the left ureteral orifice with the aid of a dual-lumen catheter. On this side the flexible scope advanced easily up into the upper collecting system no significant dilation required. The inspection of the entire ureter as well as the all calyceal system were visually evaluated there was no papillary lesions or suspicious areas. The patient then had careful withdrawal of the ureteroscope and no ureteral lesions were noted either. The patient on the right side prior to this had a 6 x 26 regular stent deployed coiling the upper collecting system and bladder due to the dilation of the access sheath and this will be removed in a few days. Summary: [] Disclaimer This dictation was created using voice recognition software. Phonetic and/or minor grammatical errors may exist. eSign Date and Time Sanchez Anguiano MD Verified/Reviewed by 10/06/20 1150 [facility] PYELOGRAM RETRO UNILAT RTon 10-06-2020 PYELOGRAM RETRO UNILAT RT PYELOGRAM RETRO UNILAT RT Ordering Physician: Sanchez Anguiano MD 10/06/2020 10:30 AM ABDOMINAL AND PELVIC FLUOROSCOPY Clinical Statement: Right ureteral lesion FINDINGS: 40 seconds fluoroscopy time was utilized by Dr. Anguiano. Eight C-arm images of the abdomen and pelvis were obtained showing injection of contrast into the right ureter in a retrograde manner. Subsequent images reveal instrumentation of both ureters. IMPRESSION: 40 seconds fluoroscopy time utilized by Dr. Anguiano. ---- Electronic Signature on File ---- Signed By: Alfredito Feldman MD FACR [email or web address] Dictated: 10/06/2020 12:14 PM Signed: 10/06/2020 12:15 PM Reported By: ALFREDITO FELDMAN M.D. Signed By: ALFREDITO FELDMAN M.D. [facility] [id number] 10-03-2020 SARS-CoV-2 (COVID-19) RNA ALBIN+probe Ql (Unsp spec) Negative Normal Negative [facility] Comment on above: Result Comment: Nega tive results do not preclude SARS-CoV-2 infection and should not be used as the sole basis for patient management decisions. Negative results must be combined with clinical observations, patient history, and epidemiological information. This test has been authorized by the FDA under the Emergency Use Authorization (EUA) for use by authorized laboratories. This test was performed by PCR. Performed By: #### L 770.24274 #### [facility] [address] [phone] CERV SP 3 VIEWS OR LESSon CERV SP 3 VIEWS OR LESS CERV SP 3 VIEWS OR LESS Ordering Physician: Shira Roy MD 10/02/2020 3:53 PM CERVICAL SPINE SERIES FIVE VIEWS Clinical Statement: Rheumatoid arthritis. Neck pain. No comparison FINDINGS: Moderate to severe degenerative disk disease at the C5-6 level with disk space narrowing and osteophyte formation with mild retrolisthesis of C5 on C6. Milder degenerative changes elsewhere. Multilevel facet arthropathy and uncovertebral degenerative change with foraminal encroachment most marked on the right at the C5-6 level. The odontoid is intact. The atlantodental interval is not widened. No prevertebral soft tissue swelling. IMPRESSION: Moderate to severe degenerative disk disease most marked at the C5-6 level with mild retrolisthesis. No definite erosive arthropathy. ---- Electronic Signature on File ---- Signed By: Liam Chaudhari MD [email or web address] Dictated: 10/03/2020 7:28 AM Signed: 10/03/2020 7:31 AM Reported By: LIAM CHAUDHARI M.D. Signed By: LIAM CHAUDHARI M.D. [facility] LEUKOPOOR PC-ASon 09-05-2020 LEUKOPOOR PC- TRANSFUSED PRODUCT: LEUKOPOOR RED CELL UNIT ADSOL COUNT: 1 Normal [facility] TSon 09-05-2020 ABO and Rh group Nom (Bld) Blood group O Rh(D) positive [facility] [facility] CNPNon 03-09-2020 [facility] -------- PAOLALAVINIA HYATT ([id number]) 1940 F Date Time Provider Department 03/09/20 LORE BUENO EUSumeet During your visit today, we recorded the following information about you: Wali Hendrickson, RN, RN 03/09/2020 12:04 PM Signed ----- Message from Lore Bueno sent at 03/09/2020 9:05 AM EST ----- Please let the patient know that her xrays were reviewed and the plan for the SARAH is appropriate and I suggest that we proceed. Thanks, MD Wali Lynch, RN, RN 03/09/2020 12:06 PM Signed Patient called - aware of message - patient states she is having very little pain at this time and per her conversation with Dr. Bueno will call and make an appointment for SARAH when pain returns. No further questions at this time. Allergies As of Date: 03/09/2020 Noted Allergy Reaction HUMIRA (ADALIMUMAB) 02/28/2020 2 - Rash Date Reviewed: 02/28/2020 Reviewed by: Elli ([facility]) Mo - Fully Assessed Reason for Visit: Results [95] Prescriptions as of 03/09/2020 Sig: AMLODIPINE 10 MG-BENAZEPRIL 2* Take 1 capsule by mouth once * ORENCIA 125 MG/ML SUBCUTANEOU* Inject 125 mg subcutaneously * HUMALOG KWIKPEN INSULIN SUBCU* Inject 6 Units subcutaneously* LANTUS SOLOSTAR U-100 INSULIN* Inject 5 Units subcutaneously* LEUCOVORIN CALCIUM ORAL Take 3 tablets by mouth one t* ASCORBIC ACID ORAL Take 1,000 mg by mouth once d* LEVOTHYROXINE 25 MCG TABLET Take 25 mcg by mouth daily be* INDAPAMIDE 2.5 MG TABLET Take 2.5 mg by mouth once koki* RANITIDINE 150 MG TABLET Take 150 mg by mouth as direc* ZYRTEC ORAL Take 5 mg by mouth at bedtime* AQUAPHOR ORIGINAL TOPICAL Apply to affected area. TRIAMCINOLONE ACETONIDE 0.1 %* Apply to affected area as di* GABAPENTIN 300 MG CAPSULE Take 1 capsule by mouth three* BACK BRACE Use brace as directed for rachel* FENOFIBRATE NANOCRYSTALLIZED * Take 145 mg by mouth once koki* BIMATOPROST 0.01 % EYE DROPS Use 1 Drop in both eyes daily* CALCIUM 600 ORAL Take by mouth three times da* CHOLECALCIFEROL (VITAMIN D3) * Take 50,000 Units by mouth ev* OSTEO BI-FLEX ORAL Take by mouth. FERROUS SULFATE 27 MG IRON TA* Take by mouth daily with shyla* SAXAGLIPTIN 5 MG TABLET Take 5 mg by mouth once daily. LOTREL 5 MG-20 MG CAPSULE Take by mouth once daily. POTASSIUM CHLORIDE ER 10 MEQ * Take 1 tablet by mouth twice * METFORMIN 500 MG TABLET Take 1 tablet by mouth twice * Patient taking differently: Take 500 mg by mouth three ti* ESOMEPRAZOLE MAGNESIUM 40 MG * Take 1 capsule by mouth once * MULTIVITAMIN,TX-IRON-MIN ERALS* Take 1 tablet by mouth once d* METHOTREXATE SODIUM 2.5 MG TA* Take by mouth every Friday. 5* FOLIC ACID 1 MG TABLET Take one (1) tablet daily. Problem List As Of Date 03/09/2020 Noted Resolved Lumbar canal stenosis [M48.061] 07/30/2011 Encounter Status:Closed by WALI HENDRICKSON on 03/09/20 [facility] PROGRESSon 03-08-2020 PROGRESS HNO ID: [id number] Author: Shyla Sebastian (Rt) Service: Radiology Author Type: Plant Operations Engineer Type: Progress Notes Filed: 03/08/2020 4:13 PM Note Text: Radiology Service Progress Note PATIENT NAME: Lavinia Durand DATE OF SERVICE: March 08, 2020 TIME: 4:13 PM PATIENT IDENTITY VERIFICATION COMPLETED USING TWO (2) IDENTIFIERS: Name and Date of confirmed by patient verbally and Name and Date of confirmed by identification band. FALL SCREENING: Has the patient had 2 falls in the last year or 1 fall with injury or currently using an Ambulatory Assistive Device (Walker, Cane, Wheelchair, Crutches, etc.)? No PATIENT GENDER DATA: Female. status: : No status: NO. PATIENT RELEVANT IMPLANT DATA REVIEWED: Not Applicable RADIOLOGY DEPARTMENT: General X-ray: Exam(s) Completed: Spine X-Ray(s): Lumbar AP / LAT / L5-S1 PERIPHERAL IV DATA: Not applicable SIGNED BY: RT Jaz March 08, 2020 4:13 PM [facility] XR LUMBAR 3V AP/LAT/L5-S1on 03-08-2020 XR LUMBAR 3V AP/LAT/L5-S1 Final Report DATE OF EXAM: Mar 08 2020 4:10PM GRX [id number] - XR LUMBAR 3V AP/LAT/L5-S1 / PROCEDURE REASON: multiple diagnoses Physician Interpretation XR LUMBAR 3V AP/LAT/L5-S1 HISTORY: 79 years old Clinical information: Right lumbar radiculopathy Spinal stenosis of lumbar region without neurogenic claudication lower back pain with right sciatica for 3 months. no injury. hx of spinal stenosis. no no surgery TECHNIQUE: Images: XR LUMBAR 3V AP/LAT/L5-S1 Comparison: None. RESULT: Moderate/advanced degree multilevel endplate degenerative changes with degenerative disc space narrowing lower thoracic and lumbar spine. Subcentimeter grade 1 degenerative anterolisthesis L4-5 level with disc space narrowing posterior hypertrophic changes most likely contributing to degree of stenosis. Degenerative disc space narrowing L5-S1 level with posterior hypertrophic changes. No acute fracture or bone destructing lesion. Moderate degree of arterial calcification of the aorta. Visualized portion of the pelvis is normal. IMPRESSION: Subcentimeter grade 1 degenerative anterolisthesis L4-5 level with disc space narrowing posterior hypertrophic changes most likely contributing to degree of stenosis. No evidence of bone destruction or acute fracture Livestock Haulier[facility] Transcribe Date/Time: Mar 08 2020 4:37P Dictated by : DELFINA COULTER MD This examination was interpreted and the report reviewed and electronically signed by: DELFINA COULTER MD on Mar 08 2020 4:38PM EST [facility] Demetria 03-07-2020 CNPN Telephone ([facility]) -------- LAVINIA DURAND ([id number]) 1940 F Date Time Provider Department 03/07/20 LORE BUENO During your visit today, we recorded the following information about you: Luz Hightower, RN, RN 03/07/2020 1:42 PM Signed This patient needs her lumbar xray done at [facility] and they are not part of the [employer] computer system, they need a written signed order. The order can be printed and faxed to them. Fax number [phone] Elli Crane APRN.CNP 03/07/2020 2:23 PM Signed I prefer if she had this done at a [facility] facility, close to her home. She has Medicare as her primary insurance. DANA Blount RN, RN 03/07/2020 2:44 PM Signed Informed pt of the request for her to have her xray at a [facility] facility. Allergies As of Date: 03/07/2020 Noted Allergy Reaction HUMIRA (ADALIMUMAB) 02/28/2020 2 - Rash Date Reviewed: 02/28/2020 Reviewed by: Elli Caldwell) Mo - Fully Assessed Reason for Visit: fax xray order [Other] Prescriptions as of 03/07/2020 Sig: AMLODIPINE 10 MG-BENAZEPRIL 2* Take 1 capsule by mouth once * ORENCIA 125 MG/ML SUBCUTANEOU* Inject 125 mg subcutaneously * HUMALOG KWIKPEN INSULIN SUBCU* Inject 6 Units subcutaneously* LANTUS SOLOSTAR U-100 INSULIN* Inject 5 Units subcutaneously* LEUCOVORIN CALCIUM ORAL Take 3 tablets by mouth one t* ASCORBIC ACID ORAL Take 1,000 mg by mouth once d* LEVOTHYROXINE 25 MCG TABLET Take 25 mcg by mouth daily be* INDAPAMIDE 2.5 MG TABLET Take 2.5 mg by mouth once koki* RANITIDINE 150 MG TABLET Take 150 mg by mouth as direc* ZYRTEC ORAL Take 5 mg by mouth at bedtime* AQUAPHOR ORIGINAL TOPICAL Apply to affected area. TRIAMCINOLONE ACETONIDE 0.1 %* Apply to affected area as di* GABAPENTIN 300 MG CAPSULE Take 1 capsule by mouth three* BACK BRACE Use brace as directed for rachel* FENOFIBRATE NANOCRYSTALLIZED * Take 145 mg by mouth once koki* BIMATOPROST 0.01 % EYE DROPS Use 1 Drop in both eyes daily* CALCIUM 600 ORAL Take by mouth three times da* CHOLECALCIFEROL (VITAMIN D3) * Take 50,000 Units by mouth ev* OSTEO BI-FLEX ORAL Take by mouth. FERROUS SULFATE 27 MG IRON TA* Take by mouth daily with shyla* SAXAGLIPTIN 5 MG TABLET Take 5 mg by mouth once daily. LOTREL 5 MG-20 MG CAPSULE Take by mouth once daily. POTASSIUM CHLORIDE ER 10 MEQ * Take 1 tablet by mouth twice * METFORMIN 500 MG TABLET Take 1 tablet by mouth twice * Patient taking differently: Take 500 mg by mouth three ti* ESOMEPRAZOLE MAGNESIUM 40 MG * Take 1 capsule by mouth once * MULTIVITAMIN,TX-IRON-MIN ERALS* Take 1 tablet by mouth once d* METHOTREXATE SODIUM 2.5 MG TA* Take by mouth every Friday. 5* FOLIC ACID 1 MG TABLET Take one (1) tablet daily. Problem List As Of Date 03/07/2020 Noted Resolved Lumbar canal stenosis [M48.061] 07/30/2011 Encounter Status:Closed by [facility] LAVINIA DURAND ([id number]) 1940 F Date Time Provider Department 02/28/20 1:00 PM LORE BUENO EUPMR During your visit today, we recorded the following information about you: Temperature Pulse Respiration Blood pressure 98.4 degrees 76/minute 20/minute 166/58 Weight Height 59 kg 1.524 m Lore Bueno MD 02/29/2020 1:56 PM Signed [facility] Pain Management Department Consultation Date: February 28, 2020 - 1:09 PM Referring physician: Shira Roy MD [id number] [facility] [address] Lavinia Durand is seen by Dr. Bueno in past. Chief Complaint: Patient presents with: Pain, Back: radiates down posterior RT leg The patient is accompanied by . SUBJECTIVE: Lavinia Durand, is a 79 year old with past history of spinal stenosis who presents with lower back pain.The pain started 7 Years ago, with no precipitating event. Her pain is located in the Back-Lower and radiates down the posterolateral leg to the top of the right foot. The pain is described as Continuous Shooting;Sharp. The pain intensity is rated 3 The pain is exacerbated by riding in car for long periods and housework and relieved by Medication. Symptoms interfere with physical activity, sleeping and household cleaning, walking. Her chronic pain increased about 3 mos ago but she feels better now. She does not feel she is ready for an injection at this juncture. 05/23/2014 Right TFESI Lumbar right L4-5 with over 75% benefit. Will use OTC tylenol, Tylenol #3 from PCP prn ALLERGIES Allergen Reactions - Humira [Adalimumab] Rash Current Medications: amLODIPine-benazepril (LOTREL) 10-20 mg per capsule Take 1 capsule by mouth once daily. abatacept (ORENCIA) 125 mg/mL Inject 125 mg subcutaneously one time a week. insulin lispro (HUMALOG KWIKPEN INSULIN SUBCUTANEOUS) Inject 6 Units subcutaneously twice daily before meals. insulin glargine (LANTUS SOLOSTAR U-100 INSULIN) 100 unit/mL (3 mL) Inject 5 Units subcutaneously daily at bedtime. LEUCOVORIN CALCIUM ORAL Take 3 tablets by mouth one time a week. ASCORBIC ACID ORAL Take 1,000 mg by mouth once daily. levothyroxine (SYNTHROID) 25 mcg tablet Take 25 mcg by mouth daily before breakfast. indapamide (LOZOL) 2.5 mg tablet Take 2.5 mg by mouth once daily. CETIRIZINE HCL (ZYRTEC ORAL) Take 5 mg by mouth at bedtime as needed (itching). triamcinolone acetonide (KENALOG) 0.1 % cream Apply to affected area as directed. gabapentin (NEURONTIN) 300 mg capsule Take 1 capsule by mouth three times daily. / Actual start date 02/12/15 fenofibrate nanocrystallized (TRICOR) 145 mg tablet Take 145 mg by mouth once daily. Bimatoprost (LUMIGAN) 0.01 % Drop Use 1 Drop in both eyes daily at bedtime. CALCIUM CARBONATE (CALCIUM 600 ORAL) Take by mouth three times daily with meals. cholecalciferol, Vitamin D3, 50,000 unit cap capsule Take 50,000 Units by mouth every 2 weeks. metFORMIN (GLUCOPHAGE) 500 mg ORAL tablet Take 1 tablet by mouth twice daily. esomeprazole (NEXIUM) 40 mg ORAL capsule Take 1 capsule by mouth once daily. multivitamin,tx-iron-min erals (COMPLETE MULTIVITAMIN) ORAL Tab Take 1 tablet by mouth once daily. FOLIC ACID 1 MG TAB Take one (1) tablet daily. ranitidine (ZANTAC) 150 mg tablet Take 150 mg by mouth as directed. PETROLATUM,WHITE (AQUAPHOR ORIGINAL TOPICAL) Apply to affected area. Back Brace misc Use brace as directed for back pain. GLUCOSAMINE HCL/CHONDR ROLON A NA (OSTEO BI-FLEX ORAL) Take by mouth. Ferrous Sulfate (IRON) 27 mg iron Tab Take by mouth daily with food. saxagliptin (ONGLYZA) 5 mg Tab Take 5 mg by mouth once daily. amLODIPine-benazepril (LOTREL) 5-20 mg per capsule Take by mouth once daily. potassium chloride (KLOR-CON 10) 10 mEq ORAL tablet Take 1 tablet by mouth twice daily. METHOTREXATE SODIUM 2.5 MG TAB Take by mouth every Friday. 5 tablets PAST MEDICAL HISTORY Diagnosis Date - Arthritis - Diabetes mellitus NIDDM - Glaucoma - Hypercholesteremia - Hypertension - Macular degeneration of right eye - Osteoporosis - Pneumonia - Sciatica PAST SURGICAL HISTORY Procedure Laterality Date - CATARACT EXTRACTION HX Bilateral - REPAIR WRIST FRACTURE Left ORIF left diatal radius - SLING OPER STRES INCONTINENCE 1997 - STAB PHLEBECTOMY VARICOSE VEINS >20 1973 - TOTAL ABDOM HYSTERECTOMY 1976 - TOTAL KNEE REPLACEMENT 2006 Left No family history on file. Social History: Alcohol Use: No Tobacco Use: Never Drug Use: No Employer And Job Title: None on file Years Of Education Completed: Not specified Marital Status: Single GENERAL: No weight loss or malaise MUSCULOSKELETAL: Negative for joint pain, swelling or muscle pain NEURO: No history of headaches, syncope, paralysis, seizures or tremors Patient Reports: none OBJECTIVE: PHYSICAL EXAMINATION: BP 166/58 Pulse 76 Temp (Src) 98.4 (Temporal Artery) Resp 20 Ht 5' 0 (1.52m) Wt 130 lb (59.0kg) SpO2 100% BMI 25.39 kg/(m2). General: Well-appearing, alert, in no acute distress Skin: Skin color, texture, turgor normal, no rashes or lesions HEENT: Normocephalic, atraumatic, sclera nonicteric CV: Regular rate and rhythm Resp: Breathing unlabored, normal chest excursion. : Not examined Musculoskeletal Neck: Good range of motion Back: +TTP of the lumbar spine, good range of motion with reproducible pain, difficulty rising from sitting position Extremities: Normal without deformity Neurological: Mental Status: Alert and oriented x3, no acute distress, euthymic Cranial Nerves: 2 through 12 intact Motor Strength:Motor strength and tone are 5/5 throughout Sensory:Sensation was intact to light touch all throughout Gait: Normal Medical record and diagnostic tests reviewed for today's visit: The [facility] EMR was reviewed during the visit OARRS: PDMP website checked and validated and is consistent with medication report. Pain Panel: Not applicable ASSESSMENT: Right lumbar radiculopathy (primary encounter diagnosis) Spinal stenosis of lumbar region without neurogenic claudication Pre-procedural laboratory examination The patient is having an exacerbation of her chronic pain. Lumbar x rays to assist with treatment plan. Pt may call for right TFE L4-[address] Bueno for return of pain as needed, at [place] Referral to physical therapy to refresh HEP and for cane training. The patient was offered a surgery/procedure at a [facility] facility. The surgeon/proceduralist and patient have discussed in detail the risk of exposure to and/or potential harm posed by the COVID-19 virus with having a surgery/procedure at this time versus the risk of delaying the surgery/procedure. It is not possible to know either the risk of delaying the surgery or procedure or chance of getting an infection with perfect accuracy, but a joint decision was made between the patient and the surgeon/proceduralist to proceed at this time with the scheduled surgery/procedure as indicated on the consent form. RECOMMENDATIONS: 1. Continue medication management through the Pain Management Center 2. No medications selected for refill. 3. Right TFE L4-5 as needed for return of pain 4. Imaging ordered: Lumbar x rays. 5. Follow up: prn for the ordered procedure(s). Discussed options for additional treatment including; health promotion/lifestyle modifications, medication management, and additional pain management interventions. We also discussed referral to physical or occupational therapy, psychological pain management and surgical options as appropriate. The above plan and management options were discussed with patient. The patient is in agreement with the above and verbalized understanding. Elli Crane APRN.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 Electronic signature Attending Note I have personally performed a face to face assessment of the patient and have reviewed the CAROL ANN note. The medical and pain history are well outlined by the nurse practitioner. The patient presents with Lower back pain radiating to the right lower extremity in an L4 distribution. She was treated in the past with epidural steroid injections with significant relief. The pain has recurred without any additional injury or trauma. The patient did have a fall on the left side last year resulting in wrist fracture. Physical Exam Constitutional: She is well appearing, cooperative and in no acute distress. HEENT: Head: Normocephalic and atraumatic. Eyes: Conjunctivae and EOM are normal. Pulmonary/Chest: Effort normal. No respiratory distress. Musculoskeletal: Neck: Supple; good ROM. Back: scoliosis, Straight leg raising test: is negative bilaterally, Diffiuclty going from sitting to standing., Right gluteal tenderness Extremities: Extremities normal. No deformities, edema, or skin discoloration. Neurological: She is alert and oriented. She has normal strength. She displays no atrophy and no tremor. No sensory deficit is observed. She exhibits normal muscle tone. Gait: antalgic and slightly unsteady Skin: Skin is warm. No rash noted. Psychiatric: She has a normal mood and affect. Her speech and behavior is normal. Thought content is normal. Assessment and plan Right lumbar radiculopathy (primary encounter diagnosis) Spinal stenosis of lumbar region without neurogenic claudication Pre-procedural laboratory examination The patient had an acute exacerbation of her pain which is now started to resolve. We discussed opportunities to facilitate her ongoing care including a physical therapy reevaluation. I am concerned with the unsteadiness of her gait and her history of a fall last year with injury. I think that physical therapy cane training would be appropriate for safety. Office Visit on 02/28/20 - XR LUMBAR GENERAL 3V AP/LAT/L5-S1 - CONSULT TO PHYSICAL THERAPY - PRE-PROCEDURE AND PRE-OPERATIVE COVID - SURGICAL REQUEST - ELECTIVE (11/2019) No medications selected for refill. Signature: Lore Bueno MD Date: 02/28/2020 Time: 2:12 PM CC Shira Roy MD through [facility] Referring Provider: SHIRA ROY [[id number]] Allergies As of Date: 02/28/2020 Noted Allergy Reaction HUMIRA (ADALIMUMAB) 02/28/2020 2 - Rash Date Reviewed: 02/28/2020 [facility]: [facility] Mo - Fully Assessed Reason for Visit: Pain, Back [855] Cmt: radiates down posterior RT leg Primary Visit Diagnosis:Right lumbar radiculopathy [M54.16] Other Visit Diagnoses:Spinal stenosis of lumbar region without neurogenic claudication [M48.061] Pre-procedural laboratory examination [Z01.812] Order(s):SURGICAL REQUEST - ELECTIVE (11/2019) [6017105] Order #: [id number]: 1 PRE-PROCEDURE AND PRE-OPERATIVE COVID [SQPOCOVD] Order #: [id number] FUTURE CONSULT TO PHYSICAL THERAPY [9032] Order #: [id number]: 1 FUTURE XR LUMBAR GENERAL 3V AP/LAT/L5-S1 [[id number]] Order #: [id number] FUTURE Prescriptions as of 02/28/2020 Sig: AMLODIPINE 10 MG-BENAZEPRIL 2* Take 1 capsule by mouth once * ORENCIA 125 MG/ML SUBCUTANEOU* Inject 125 mg subcutaneously * HUMALOG KWIKPEN INSULIN SUBCU* Inject 6 Units subcutaneously* LANTUS SOLOSTAR U-100 INSULIN* Inject 5 Units subcutaneously* LEUCOVORIN CALCIUM ORAL Take 3 tablets by mouth one t* ASCORBIC ACID ORAL Take 1,000 mg by mouth once d* LEVOTHYROXINE 25 MCG TABLET Take 25 mcg by mouth daily be* INDAPAMIDE 2.5 MG TABLET Take 2.5 mg by mouth once koki* RANITIDINE 150 MG TABLET Take 150 mg by mouth as direc* ZYRTEC ORAL Take 5 mg by mouth at bedtime* AQUAPHOR ORIGINAL TOPICAL Apply to affected area. TRIAMCINOLONE ACETONIDE 0.1 %* Apply to affected area as di* GABAPENTIN 300 MG CAPSULE Take 1 capsule by mouth three* BACK BRACE Use brace as directed for rachel* FENOFIBRATE NANOCRYSTALLIZED * Take 145 mg by mouth once koki* BIMATOPROST 0.01 % EYE DROPS Use 1 Drop in both eyes daily* CALCIUM 600 ORAL Take by mouth three times da* CHOLECALCIFEROL (VITAMIN D3) * Take 50,000 Units by mouth ev* OSTEO BI-FLEX ORAL Take by mouth. FERROUS SULFATE 27 MG IRON TA* Take by mouth daily with shyla* SAXAGLIPTIN 5 MG TABLET Take 5 mg by mouth once daily. LOTREL 5 MG-20 MG CAPSULE Take by mouth once daily. POTASSIUM CHLORIDE ER 10 MEQ * Take 1 tablet by mouth twice * METFORMIN 500 MG TABLET Take 1 tablet by mouth twice * Patient taking differently: Take 500 mg by mouth three ti* ESOMEPRAZOLE MAGNESIUM 40 MG * Take 1 capsule by mouth once * MULTIVITAMIN,TX-IRON-MIN ERALS* Take 1 tablet by mouth once d* METHOTREXATE SODIUM 2.5 MG TA* Take by mouth every Friday. 5* FOLIC ACID 1 MG TABLET Take one (1) tablet daily. Medication notes this encounter BACK BRACE >> Elli Crane APRN.[facility] 02/28/2020 1:24 PM >> ELLI CRANE FriFeb 28, 2020 1:24 PM Not using FERROUS SULFATE 27 MG IRON TABLET >> Elli Crane APRN.[facility] 02/28/2020 1:25 PM >> ELLI CRANE FriFeb 28, 2020 1:25 PM not taking SAXAGLIPTIN 5 MG TABLET >> Elli Crane APRN.[facility] 02/28/2020 1:25 PM >> ELLI CRANE FriFeb 28, 2020 1:25 PM not taking Problem List As Of Date 02/28/2020 Noted Resolved Lumbar canal stenosis [M48.061] 07/30/2011 Encounter Status:Closed by LORE BUENO MD on 02/29/20 [facility] PROGRESSon 02-28-2020 PROGRESS HNO ID: [id number] Author: Lore Bueno Service: ? Author Type: Physician Type: Progress Notes Filed: 02/29/2020 1:56 PM Note Text: [facility] Pain Management Department Consultation Date: February 28, 2020 - 1:09 PM Referring physician: Shira Roy MD [id number] [facility] [address] [facility] [address] Lavinia Durand is seen by Dr. Bueno in past. Chief Complaint: Patient presents with: Pain, Back: radiates down posterior RT leg The patient is accompanied by . SUBJECTIVE: Lavinia Durand, is a 79 year old with past history of spinal stenosis who presents with lower back pain.The pain started 7 Years ago, with no precipitating event. Her pain is located in the Back-Lower and radiates down the posterolateral leg to the top of the right foot. The pain is described as Continuous Shooting;Sharp. The pain intensity is rated 3 The pain is exacerbated by riding in car for long periods and housework and relieved by Medication. Symptoms interfere with physical activity, sleeping and household cleaning, walking. Her chronic pain increased about 3 mos ago but she feels better now. She does not feel she is ready for an injection at this juncture. 05/23/2014 Right TFESI Lumbar right L4-5 with over 75% benefit. Will use OTC tylenol, Tylenol #3 from PCP prn ALLERGIES Allergen Reactions - Humira [Adalimumab] Rash Current Medications: amLODIPine-benazepril (LOTREL) 10-20 mg per capsule Take 1 capsule by mouth once daily. abatacept (ORENCIA) 125 mg/mL Inject 125 mg subcutaneously one time a week. insulin lispro (HUMALOG KWIKPEN INSULIN SUBCUTANEOUS) Inject 6 Units subcutaneously twice daily before meals. insulin glargine (LANTUS SOLOSTAR U-100 INSULIN) 100 unit/mL (3 mL) Inject 5 Units subcutaneously daily at bedtime. LEUCOVORIN CALCIUM ORAL Take 3 tablets by mouth one time a week. ASCORBIC ACID ORAL Take 1,000 mg by mouth once daily. levothyroxine (SYNTHROID) 25 mcg tablet Take 25 mcg by mouth daily before breakfast. indapamide (LOZOL) 2.5 mg tablet Take 2.5 mg by mouth once daily. CETIRIZINE HCL (ZYRTEC ORAL) Take 5 mg by mouth at bedtime as needed (itching). triamcinolone acetonide (KENALOG) 0.1 % cream Apply to affected area as directed. gabapentin (NEURONTIN) 300 mg capsule Take 1 capsule by mouth three times daily. / Actual start date 02/12/15 fenofibrate nanocrystallized (TRICOR) 145 mg tablet Take 145 mg by mouth once daily. Bimatoprost (LUMIGAN) 0.01 % Drop Use 1 Drop in both eyes daily at bedtime. CALCIUM CARBONATE (CALCIUM 600 ORAL) Take by mouth three times daily with meals. cholecalciferol, Vitamin D3, 50,000 unit cap capsule Take 50,000 Units by mouth every 2 weeks. metFORMIN (GLUCOPHAGE) 500 mg ORAL tablet Take 1 tablet by mouth twice daily. esomeprazole (NEXIUM) 40 mg ORAL capsule Take 1 capsule by mouth once daily. multivitamin,tx-iron-min erals (COMPLETE MULTIVITAMIN) ORAL Tab Take 1 tablet by mouth once daily. FOLIC ACID 1 MG TAB Take one (1) tablet daily. ranitidine (ZANTAC) 150 mg tablet Take 150 mg by mouth as directed. PETROLATUM,WHITE (AQUAPHOR ORIGINAL TOPICAL) Apply to affected area. Back Brace misc Use brace as directed for back pain. GLUCOSAMINE HCL/CHONDR ROLON A NA (OSTEO BI-FLEX ORAL) Take by mouth. Ferrous Sulfate (IRON) 27 mg iron Tab Take by mouth daily with food. saxagliptin (ONGLYZA) 5 mg Tab Take 5 mg by mouth once daily. amLODIPine-benazepril (LOTREL) 5-20 mg per capsule Take by mouth once daily. potassium chloride (KLOR-CON 10) 10 mEq ORAL tablet Take 1 tablet by mouth twice daily. METHOTREXATE SODIUM 2.5 MG TAB Take by mouth every Friday. 5 tablets PAST MEDICAL HISTORY Diagnosis Date - Arthritis - Diabetes mellitus NIDDM - Glaucoma - Hypercholesteremia - Hypertension - Macular degeneration of right eye - Osteoporosis - Pneumonia - Sciatica PAST SURGICAL HISTORY Procedure Laterality Date - CATARACT EXTRACTION HX Bilateral - REPAIR WRIST FRACTURE Left ORIF left diatal radius - SLING OPER STRES INCONTINENCE 1997 - STAB PHLEBECTOMY VARICOSE VEINS >20 1974 - TOTAL ABDOM HYSTERECTOMY 1976 - TOTAL KNEE REPLACEMENT 2006 Left No family history on file. Social History: Alcohol Use: No Tobacco Use: Never Drug Use: No Employer And Job Title: None on file Years Of Education Completed: Not specified Marital Status: Single GENERAL: No weight loss or malaise MUSCULOSKELETAL: Negative for joint pain, swelling or muscle pain NEURO: No history of headaches, syncope, paralysis, seizures or tremors Patient Reports: none OBJECTIVE: PHYSICAL EXAMINATION: BP 166/58 Pulse 76 Temp (Src) 98.4 (Temporal Artery) Resp 20 Ht 5' 0 (1.52m) Wt 130 lb (59.0kg) SpO2 100% BMI 25.39 kg/(m2). General: Well-appearing, alert, in no acute distress Skin: Skin color, texture, turgor normal, no rashes or lesions HEENT: Normocephalic, atraumatic, sclera nonicteric CV: Regular rate and rhythm Resp: Breathing unlabored, normal chest excursion. : Not examined Musculoskeletal Neck: Good range of motion Back: +TTP of the lumbar spine, good range of motion with reproducible pain, difficulty rising from sitting position Extremities: Normal without deformity Neurological: Mental Status: Alert and oriented x3, no acute distress, euthymic Cranial Nerves: 2 through 12 intact Motor Strength:Motor strength and tone are 5/5 throughout Sensory:Sensation was intact to light touch all throughout Gait: Normal Medical record and diagnostic tests reviewed for today's visit: The [facility] EMR was reviewed during the visit OARRS: PDMP website checked and validated and is consistent with medication report. Pain Panel: Not applicable ASSESSMENT: Right lumbar radiculopathy (primary encounter diagnosis) Spinal stenosis of lumbar region without neurogenic claudication Pre-procedural laboratory examination The patient is having an exacerbation of her chronic pain. Lumbar x rays to assist with treatment plan. Pt may call for right TFE L4-[address] Bueno for return of pain as needed, at [place] Referral to physical therapy to refresh HEP and for cane training. The patient was offered a surgery/procedure at a [facility] facility. The surgeon/proceduralist and patient have discussed in detail the risk of exposure to and/or potential harm posed by the COVID-19 virus with having a surgery/procedure at this time versus the risk of delaying the surgery/procedure. It is not possible to know either the risk of delaying the surgery or procedure or chance of getting an infection with perfect accuracy, but a joint decision was made between the patient and the surgeon/proceduralist to proceed at this time with the scheduled surgery/procedure as indicated on the consent form. RECOMMENDATIONS: 1. Continue [facility] through the [facility] 2. No medications selected for refill. 3. Right TFE L4-5 as needed for return of pain 4. Imaging ordered: Lumbar x rays. 5. Follow up: prn for the ordered procedure(s). Discussed options for additional treatment including; health promotion/lifestyle modifications, medication management, and additional pain management interventions. We also discussed referral to physical or occupational therapy, psychological pain management and surgical options as appropriate. The above plan and management options were discussed with patient. The patient is in agreement with the above and verbalized understanding. Elli Crane APRN.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 Electronic signature Attending Note I have personally performed a face to face assessment of the patient and have reviewed the CAROL ANN note. The medical and pain history are well outlined by the nurse practitioner. The patient presents with Lower back pain radiating to the right lower extremity in an L4 distribution. She was treated in the past with epidural steroid injections with significant relief. The pain has recurred without any additional injury or trauma. The patient did have a fall on the left side last year resulting in wrist fracture. Physical Exam Constitutional: She is well appearing, cooperative and in no acute distress. HEENT: Head: Normocephalic and atraumatic. Eyes: Conjunctivae and EOM are normal. Pulmonary/Chest: Effort normal. No respiratory distress. Musculoskeletal: Neck: Supple; good ROM. Back: scoliosis, Straight leg raising test: is negative bilaterally, Diffiuclty going from sitting to standing., Right gluteal tenderness Extremities: Extremities normal. No deformities, edema, or skin discoloration. Neurological: She is alert and oriented. She has normal strength. She displays no atrophy and no tremor. No sensory deficit is observed. She exhibits normal muscle tone. Gait: antalgic and slightly unsteady Skin: Skin is warm. No rash noted. Psychiatric: She has a normal mood and affect. Her speech and behavior is normal. Thought content is normal. Assessment and plan Right lumbar radiculopathy (primary encounter diagnosis) Spinal stenosis of lumbar region without neurogenic claudication Pre-procedural laboratory examination The patient had an acute exacerbation of her pain which is now started to resolve. We discussed opportunities to facilitate her ongoing care including a physical therapy reevaluation. I am concerned with the unsteadiness of her gait and her history of a fall last year with injury. I think that physical therapy cane training would be appropriate for safety. Office Visit on 02/28/20 - XR LUMBAR GENERAL 3V AP/LAT/L5-S1 - CONSULT TO PHYSICAL THERAPY - PRE-PROCEDURE AND PRE-OPERATIVE COVID - SURGICAL REQUEST - ELECTIVE (11/2019) No medications selected for refill. Signature: Lore Bueno MD Date: 02/28/2020 Time: 2:12 PM CC Shira Roy MD through [facility] Vital Signs Date Time Vital Sign Value Performing Clinician Facility 10-07-2024 14:57-0400 Body temperature 99 [degF] Dr. Osmani Morgan MD Work Phone: [facility] 10-07-2024 14:57-0400 Diastolic blood pressure 62 mm[Hg] Dr. Osmani Morgan MD Work Phone: [facility] 10-07-2024 14:57-0400 Heart rate 90 /min Dr. Osmani Morgan MD Work Phone: [facility] 10-07-2024 14:57-0400 Respiratory rate 17 /min Dr. Osmani Morgan MD Work Phone: [facility] 10-07-2024 14:57-0400 SaO2% (BldA) [Mass fraction] 97 % Dr. Osmani Morgan MD Work Phone: [facility] 10-07-2024 14:57-0400 Systolic blood pressure 142 mm[Hg] Dr. Osmani Morgan MD Work Phone: [facility] 09-07-2024 17:56-0400 Diastolic Blood Pressure Non-Invasive 80 mm[Hg] CHRISTAL LIMA CORRECTIONAL MAINTENANCE TECHNICIAN-DRAPERY SUPERVISOR [facility] 09-07-2024 17:56-0400 Systolic Blood Pressure Non-Invasive 202 mm[Hg] CHRISTAL LIMA [employer]RECTIONAL MAINTENANCE TECHNICIAN-DRAPERY SUPERVISOR [facility] 09-07-2024 17:44-0400 Signs/Symptoms Transfusion Reaction No CHRISTAL LIMA [employer]RECTIONAL MAINTENANCE TECHNICIAN-DRAPERY SUPERVISOR [facility] 09-07-2024 17:44-0400 Body temperature 98.06 [degF] CHRISTAL LIMA [employer]RECTIONAL MAINTENANCE TECHNICIAN-DRAPERY SUPERVISOR [facility] 09-07-2024 17:44-0400 Diastolic blood pressure 69 mm[Hg] CHRISTAL LIMA [employer]RECTIONAL MAINTENANCE TECHNICIAN-DRAPERY SUPERVISOR [facility] 09-07-2024 17:44-0400 Diastolic Blood Pressure Non-Invasive 69 mm[Hg] CHRISTAL LIMA [employer]RECTIONAL MAINTENANCE TECHNICIAN-DRAPERY SUPERVISOR [facility] 09-07-2024 17:44-0400 Heart rate 80 /min CHRISTAL LIMA [employer]RECTIONAL MAINTENANCE TECHNICIAN-DRAPERY SUPERVISOR [facility] 09-07-2024 17:44-0400 Respiratory rate 18 /min CHRISTAL LIMA [employer]RECTIONAL MAINTENANCE TECHNICIAN-DRAPERY SUPERVISOR [facility] 09-07-2024 17:44-0400 Systolic blood pressure 220 mm[Hg] CHRISTAL LIMA CORRECTIONAL MAINTENANCE TECHNICIAN-DRAPERY SUPERVISOR [facility] 09-07-2024 17:44-0400 Systolic Blood Pressure Non-Invasive 220 mm[Hg] CHRISTAL LIMA [employer]RECTIONAL MAINTENANCE TECHNICIAN-DRAPERY SUPERVISOR [facility] 09-07-2024 17:35-0400 Signs/Symptoms Transfusion Reaction CHRISTAL LIMA [employer]RECTIONAL MAINTENANCE TECHNICIAN-DRAPERY SUPERVISOR [facility] 09-07-2024 17:05-0400 Signs/Symptoms Transfusion Reaction CHRISTAL LIMA [employer]RECTIONAL MAINTENANCE TECHNICIAN-DRAPERY SUPERVISOR [facility] 09-07-2024 15:35-0400 Body temperature 98.24 [degF] CHRISTAL LIMA CORRECTIONAL MAINTENANCE TECHNICIAN-DRAPERY SUPERVISOR [facility] 09-07-2024 15:35-0400 Diastolic Blood Pressure Non-Invasive 90 mm[Hg] CHRISTAL LIMA [employer]RECTIONAL MAINTENANCE TECHNICIAN-DRAPERY SUPERVISOR [facility] 09-07-2024 15:35-0400 Heart rate 77 /min CHRISTAL LIMA [employer]RECTIONAL MAINTENANCE TECHNICIAN-DRAPERY SUPERVISOR [facility] 09-07-2024 15:35-0400 Reason For Taking VItal Signs CHRISTAL LIMA [employer]RECTIONAL MAINTENANCE TECHNICIAN-DRAPERY SUPERVISOR [facility] 09-07-2024 15:35-0400 Respiratory rate 18 /min CHRISTAL LIMA [employer]RECTIONAL MAINTENANCE TECHNICIAN-DRAPERY SUPERVISOR [facility] 09-07-2024 15:35-0400 Systolic Blood Pressure Non-Invasive 190 mm[Hg] CHRISTAL LIMA CORRECTIONAL MAINTENANCE TECHNICIAN-DRAPERY SUPERVISOR [facility] 09-07-2024 15:18-0400 Body temperature 98.06 [degF] CHRISTAL LMIA CORRECTIONAL MAINTENANCE TECHNICIAN-DRAPERY SUPERVISOR [facility] 09-07-2024 15:18-0400 Diastolic blood pressure 80 mm[Hg] CHRISTAL LIMA CORRECTIONAL MAINTENANCE TECHNICIAN-DRAPERY SUPERVISOR [facility] 09-07-2024 15:18-0400 Heart rate 74 /min CHRISTAL LIMA CORRECTIONAL MAINTENANCE TECHNICIAN-DRAPERY SUPERVISOR [facility] 09-07-2024 15:18-0400 Respiratory rate 20 /min CHRISTAL LIMA CORRECTIONAL MAINTENANCE TECHNICIANRising Tide InnovationsDRAPERY SUPERVISOR [facility] 09-07-2024 15:18-0400 Systolic blood pressure 185 mm[Hg] CHRISTAL LIMA CORRECTIONAL MAINTENANCE TECHNICIAN-DRAPERY SUPERVISOR [facility] 09-07-2024 13:48-0400 Reason For Taking VItal Signs CHRISTAL LIMA CORRECTIONAL MAINTENANCE TECHNICIAN-DRAPERY SUPERVISOR [facility] 09-07-2024 13:30-0400 Reason For Taking VItal Signs CHRISTAL LIMA CORRECTIONAL MAINTENANCE TECHNICIAN-DRAPERY SUPERVISOR [facility] 09-07-2024 11:45-0400 Body height 152.4 cm CHRISTAL LIMA CORRECTIONAL MAINTENANCE TECHNICIAN-DRAPERY SUPERVISOR [facility] 09-07-2024 11:45-0400 Body weight 46.5 kg CHRISTAL LIMA CORRECTIONAL MAINTENANCE TECHNICIANRising Tide InnovationsDRAPERY SUPERVISOR [facility] 09-07-2024 11:45-0400 Body weight 20.02 kg/m2 CRHISTAL LIMA CORRECTIONAL MAINTENANCE TECHNICIAN-DRAPERY SUPERVISOR [facility] 09-07-2024 09:33-0400 Body weight 46.5 kg CHRISTAL LIMA CORRECTIONAL MAINTENANCE TECHNICIANRising Tide InnovationsDRAPERY SUPERVISOR [facility] 08-17-2024 16:19-0400 Body temperature 98.78 [degF] ROSEANNE BACA MD [facility] 08-17-2024 16:19-0400 Diastolic Blood Pressure Non-Invasive 57 mm[Hg] ROSEANNE BACA MD [facility] 08-17-2024 16:19-0400 Heart rate 73 /min ROSEANNE BACA MD [facility] 08-17-2024 16:19-0400 Reason For Taking VItal Signs ROSEANNE BACA MD [facility] 08-17-2024 16:19-0400 Respiratory rate 16 /min ROSEANNE BACA MD [facility] 08-17-2024 16:19-0400 Signs/Symptoms Transfusion Reaction ROSEANNE BACA MD [facility] 08-17-2024 16:19-0400 Systolic Blood Pressure Non-Invasive 179 mm[Hg] ROSEANNE ABCA MD [facility] 08-17-2024 15:49-0400 Diastolic Blood Pressure Non-Invasive 67 mm[Hg] ROSEANNE BACA MD [facility] 08-17-2024 15:49-0400 Signs/Symptoms Transfusion Reaction ROSEANNE BACA MD [facility] 08-17-2024 15:49-0400 Systolic Blood Pressure Non-Invasive 212 mm[Hg] ROSEANNE ABCA MD [facility] 08-17-2024 15:19-0400 Body temperature 98.42 [degF] ROSEANNE BACA MD [facility] 08-17-2024 15:19-0400 Diastolic blood pressure 67 mm[Hg] ROSEANNE BACA MD [facility] 08-17-2024 15:19-0400 Diastolic Blood Pressure Non-Invasive 67 mm[Hg] ROSEANNE BACA MD [facility] 08-17-2024 15:19-0400 Heart rate 71 /min ROSEANNE BACA MD [facility] 08-17-2024 15:19-0400 Respiratory rate 16 /min ROSEANNE BACA MD [facility] 08-17-2024 15:19-0400 Signs/Symptoms Transfusion Reaction ROSEANNE BACA MD [facility] 08-17-2024 15:19-0400 Systolic blood pressure 212 mm[Hg] ROSEANNE BACA MD [facility] 08-17-2024 15:19-0400 Systolic Blood Pressure Non-Invasive 212 mm[Hg] ROSEANNE BACA MD [facility] 08-17-2024 13:15-0400 Body temperature 98.24 [degF] ROSEANNE BACA MD [facility] 08-17-2024 13:15-0400 Heart rate 69 /min ROSEANNE BACA MD [facility] 08-17-2024 13:15-0400 Reason For Taking VItal Signs ROSEANNE BACA MD [facility] 08-17-2024 13:15-0400 Respiratory rate 16 /min ROSEANNE BACA MD [facility] 08-17-2024 12:49-0400 Reason For Taking VItal Signs ROSEANNE BACA MD [facility] 08-17-2024 10:46-0400 Blood Pressure Cuff Size ROSEANNE BACA MD [facility] 08-17-2024 10:46-0400 Blood Pressure Location ROSEANNE BACA MD [facility] 08-17-2024 10:46-0400 Blood Pressure Method ROSEANNE BACA MD [facility] 08-17-2024 10:29-0400 Blood Pressure Cuff Size ROSEANNE BACA MD [facility] 08-17-2024 10:29-0400 Blood Pressure Location ROSEANNE BACA MD [facility] 08-17-2024 10:29-0400 Blood Pressure Method ROSEANNE BACA MD [facility] 08-17-2024 10:17-0400 Body height 152.4 cm ROSEANNE BACA MD [facility] 08-17-2024 10:17-0400 Body weight 46.8 kg ROSEANNE BACA MD [facility] 08-17-2024 10:17-0400 Body weight 20.15 kg/m2 ROSEANNE BACA MD [facility] 08-17-2024 08:59-0400 Body weight 46.8 kg ROSEANNE BACA MD [facility] 07-27-2024 13:56-0400 Diastolic Blood Pressure Non-Invasive 57 mm[Hg] ROSEANNE BACA MD [facility] 07-27-2024 13:56-0400 Heart rate 65 /min ROSEANNE BACA MD [facility] 07-27-2024 13:56-0400 Respiratory rate 18 /min ROSEANNE BACA MD [facility] 07-27-2024 13:56-0400 Systolic Blood Pressure Non-Invasive 164 mm[Hg] ROSEANNE BACA MD [facility] 07-27-2024 12:23-0400 Blood Pressure Cuff Size ROSEANNE BACA MD [facility] 07-27-2024 12:23-0400 Blood Pressure Location ROSEANNE BACA MD [facility] 07-27-2024 12:23-0400 Blood Pressure Method ROSEANNE BACA MD [facility] 07-27-2024 12:23-0400 Body height 152.4 cm ROSEANNE BACA MD [facility] 07-27-2024 12:23-0400 Body weight 46 kg ROSEANNE BACA MD [facility] 07-27-2024 12:23-0400 Body weight 19.81 kg/m2 ROSEANNE BACA MD [facility] 07-27-2024 12:23-0400 Diastolic Blood Pressure Non-Invasive 68 mm[Hg] ROSEANNE BACA MD [facility] 07-27-2024 12:23-0400 Systolic Blood Pressure Non-Invasive 138 mm[Hg] ROSEANNE BACA MD [facility] 07-27-2024 12:16-0400 Body temperature 97.34 [degF] ROSEANNE BACA MD [facility] 07-27-2024 12:16-0400 Diastolic Blood Pressure Non-Invasive 69 mm[Hg] ROSEANNE BACA MD [facility] 07-27-2024 12:16-0400 Heart rate 71 /min ROSEANNE BACA MD [facility] 07-27-2024 12:16-0400 Respiratory rate 18 /min ROSEANNE BACA MD [facility] 07-27-2024 12:16-0400 Systolic Blood Pressure Non-Invasive 169 mm[Hg] ROSEANNE BACA MD [facility] 07-27-2024 12:06-0400 Body weight 46 kg ROSEANNE BACA MD [facility] 07-06-2024 13:02-0400 Diastolic Blood Pressure Non-Invasive 55 mm[Hg] ROSEANNE BACA MD [facility] 07-06-2024 13:02-0400 Heart rate 65 /min ROSEANNE BACA MD [facility] 07-06-2024 13:02-0400 Respiratory rate 18 /min ROSEANNE BACA MD [facility] 07-06-2024 13:02-0400 Systolic Blood Pressure Non-Invasive 136 mm[Hg] ROSEANNE BACA MD [facility] 07-06-2024 11:50-0400 Body temperature 97.34 [degF] ROSEANNE BACA MD [facility] 07-06-2024 11:50-0400 Diastolic Blood Pressure Non-Invasive 53 mm[Hg] ROSEANNE BACA MD [facility] 07-06-2024 11:50-0400 Heart rate 65 /min ROSEANNE BACA MD [facility] 07-06-2024 11:50-0400 Systolic Blood Pressure Non-Invasive 153 mm[Hg] ROSEANNE BACA MD [facility] 07-06-2024 11:23-0400 Body height 152.4 cm ROSEANNE BACA MD [facility] 07-06-2024 11:23-0400 Body weight 48.2 kg ROSEANNE BACA MD [facility] 07-06-2024 11:23-0400 Body weight 20.75 kg/m2 ROSEANNE BACA MD [facility] 07-06-2024 10:39-0400 Body weight 48.2 kg ROSEANNE BACA MD [facility] 06-30-2024 10:56-0500 Body temperature 97.2 [degF] Dr. Osmani Morgan MD Work Phone: [facility] 06-30-2024 10:56-0500 Diastolic blood pressure 55 mm[Hg] Dr. Osmani Morgan MD Work Phone: [facility] 06-30-2024 10:56-0500 Heart rate 72 /min Dr. Osmani Morgan MD Work Phone: [facility] 06-30-2024 10:56-0500 Respiratory rate 16 /min Dr. Osmani Morgan MD Work Phone: [facility] 06-30-2024 10:56-0500 Systolic blood pressure 159 mm[Hg] Dr. Osmani Morgan MD Work Phone: [facility] 06-30-2024 10:38-0500 SaO2% (BldA) [Mass fraction] 98 % Dr. Osmani Morgan MD Work Phone: [facility] 06-30-2024 08:13-0500 Body height 152.[address] Osmani Morgan MD Work Phone: [facility] 06-30-2024 08:13-0500 Body mass index (BMI) [Ratio] 20.5 kg/m2 Dr. Osmani Morgan MD Work Phone: [facility] 06-30-2024 08:13-0500 Body weight 47.[address] Osmani Morgan MD Work Phone: [facility] 06-29-2024 11:47-0500 Body temperature 97.6 [degF] Dr. Osmani Morgan MD Work Phone: [facility] 06-29-2024 11:47-0500 Body weight 45.[address] Osmani Morgan MD Work Phone: [facility] 06-29-2024 11:47-0500 Diastolic blood pressure 66 mm[Hg] Dr. Osmani Morgan MD Work Phone: [facility] 06-29-2024 11:47-0500 Heart rate 66 /min Dr. Osmani Morgan MD Work Phone: [facility] 06-29-2024 11:47-0500 Respiratory rate 16 /min Dr. Osmani Morgan MD Work Phone: [facility] 06-29-2024 11:47-0500 SaO2% (BldA) [Mass fraction] 98 % Dr. Osmani Morgan MD Work Phone: [facility] 06-29-2024 11:47-0500 Systolic blood pressure 162 mm[Hg] Dr. Osmani Morgan MD Work Phone: [facility] 06-16-2024 09:44-0500 Body temperature 97.7 [degF] Dr. Osmani Morgan MD Work Phone: [facility] 06-16-2024 09:44-0500 Diastolic blood pressure 61 mm[Hg] Dr. Osmani Morgan MD Work Phone: [facility] 06-16-2024 09:44-0500 Heart rate 73 /min Dr. Osmani Morgan MD Work Phone: [facility] 06-16-2024 09:44-0500 Respiratory rate 16 /min Dr. Osmani Morgan MD Work Phone: [facility] 06-16-2024 09:44-0500 SaO2% (BldA) [Mass fraction] 100 % Dr. Osmani Morgan MD Work Phone: [facility] 06-16-2024 09:44-0500 Systolic blood pressure 146 mm[Hg] Dr. Osmani Morgan MD Work Phone: [facility] 06-04-2024 10:03-0500 Body temperature 98.1 [degF] Dr. Osmani Morgan MD Work Phone: [facility] 06-04-2024 10:03-0500 Diastolic blood pressure 74 mm[Hg] Dr. Osmani Morgan MD Work Phone: [facility] 06-04-2024 10:03-0500 Heart rate 78 /min Dr. Osmani Morgan MD Work Phone: [facility] 06-04-2024 10:03-0500 Respiratory rate 16 /min Dr. Osmani Morgan MD Work Phone: [facility] 06-04-2024 10:03-0500 Systolic blood pressure 175 mm[Hg] Dr. Osmani Morgan MD Work Phone: [facility] 06-04-2024 08:33-0500 Body mass index (BMI) [Ratio] 20.2 kg/m2 Dr. Osmani Morgan MD Work Phone: [facility] 06-04-2024 08:33-0500 Body weight 47.[address] Osmani Morgan MD Work Phone: [facility] 06-04-2024 08:33-0500 SaO2% (BldA) [Mass fraction] 100 % Dr. Osmani Morgan MD Work Phone: [facility] 05-25-2024 14:40-0500 Diastolic blood pressure 70 mm[Hg] Dr. Osmani Morgan MD Work Phone: [facility] 05-25-2024 14:40-0500 Systolic blood pressure 190 mm[Hg] Dr. Osmani Morgan MD Work Phone: [facility] 05-25-2024 13:50-0500 Body temperature 97.4 [degF] Dr. Osmani Morgan MD Work Phone: [facility] 05-25-2024 13:50-0500 Heart rate 82 /min Dr. Osmani Morgan MD Work Phone: [facility] 05-25-2024 13:50-0500 Respiratory rate 14 /min Dr. Osmani Morgan MD Work Phone: [facility] 05-25-2024 13:50-0500 SaO2% (BldA) [Mass fraction] 100 % Dr. Osmani Morgan MD Work Phone: [facility] 05-25-2024 11:32-0500 Body mass index (BMI) [Ratio] 20.1 kg/m2 Dr. Osmani Morgan MD Work Phone: [facility] 05-25-2024 11:32-0500 Body weight 46.[address] Osmani Morgan MD Work Phone: [facility] 05-19-2024 16:12-0500 Diastolic blood pressure 58 mm[Hg] Dr. Osmani Morgan MD Work Phone: [facility] 05-19-2024 16:12-0500 Heart rate 74 /min Dr. Osmani Morgan MD Work Phone: [facility] 05-19-2024 16:12-0500 Systolic blood pressure 159 mm[Hg] Dr. Osmani Morgan MD Work Phone: [facility] 05-19-2024 14:48-0500 Body temperature 97.7 [degF] Dr. Osmani Morgan MD Work Phone: [facility] 05-19-2024 14:48-0500 Respiratory rate 18 /min Dr. Osmani Mrogan MD Work Phone: [facility] 05-19-2024 14:48-0500 SaO2% (BldA) [Mass fraction] 98 % Dr. Osmani Morgan MD Work Phone: [facility] 05-19-2024 13:23-0500 Inhaled oxygen flow rate 1 L/min Dr. Osmani Morgan MD Work Phone: [facility] 05-19-2024 12:30-0500 Body mass index (BMI) [Ratio] 19.7 kg/m2 Dr. Osmani Morgan MD Work Phone: [facility] 05-19-2024 12:30-0500 Body weight 45.[address] Osmani Morgan MD Work Phone: [facility] 05-06-2024 12:13-0500 Body mass index (BMI) [Ratio] 20.1 kg/m2 Dr. Osmani Morgan MD Work Phone: [facility] 05-06-2024 12:13-0500 Body temperature 97.5 [degF] Dr. Osmani Morgan MD Work Phone: [facility] 05-06-2024 12:13-0500 Body weight 46.[address] Osmani Morgan MD Work Phone: [facility] 05-06-2024 12:13-0500 Heart rate 71 /min Dr. Osmani Morgan MD Work Phone: [facility] 05-06-2024 12:13-0500 Respiratory rate 12 /min Dr. Osmani Morgan MD Work Phone: [facility] 05-06-2024 12:13-0500 SaO2% (BldA) [Mass fraction] 100 % Dr. Osmani Morgan MD Work Phone: [facility] 09-18-2023 17:14-0400 Body temperature 98.01 [degF] Ashley Pagnotta DO Work Phone: [facility] 09-18-2023 17:14-0400 Diastolic blood pressure 60 mm[Hg] Ashley Pagnotta DO Work Phone: [facility] 09-18-2023 17:14-0400 Heart rate 79 /min Ashley Pagnotta DO Work Phone: [facility] 09-18-2023 17:14-0400 Respiratory rate 16 /min Ashley Pearcenotta DO Work Phone: [facility] 09-18-2023 17:14-0400 SaO2% (BldA) [Mass fraction] 97 % Ashley Pagnotta DO Work Phone: [facility] 09-18-2023 17:14-0400 Systolic blood pressure 134 mm[Hg] Ashley Portianotta DO Work Phone: [facility] 09-18-2023 06:44-0400 Body weight 46.95 kg Ashleyrk Ramosta DO Work Phone: [facility] 09-04-2023 22:00-0400 Diastolic blood pressure 53 mm[Hg] Dr. Osmani Morgan Work Phone: [facility] 09-04-2023 22:00-0400 Heart rate 83 /min Dr. Osmani Morgan Work Phone: [facility] 09-04-2023 22:00-0400 Respiratory rate 23 /min Dr. Osmani Morgan Work Phone: [facility] 09-04-2023 22:00-0400 SaO2% (BldA) [Mass fraction] 98 % Dr. Osmani Morgan Work Phone: [facility] 09-04-2023 22:00-0400 Systolic blood pressure 159 mm[Hg] Dr. Osmani Morgan Work Phone: [facility] 09-04-2023 21:38-0400 Body temperature 98.9 [degF] Dr. Osmani Morgan Work Phone: [facility] 09-04-2023 18:47-0400 Body height 149.[address] Osmani Morgan Work Phone: [facility] 09-04-2023 18:47-0400 Body mass index (BMI) [Ratio] 21.1 kg/m2 Dr. Osmani Morgan Work Phone: [facility] 09-04-2023 18:47-0400 Body weight 47.[address] Osmani Morgan Work Phone: [facility] 08-04-2023 21:09-0400 Body temperature 98.6 [degF] Dr. Osmani Morgan Work Phone: [facility] 08-04-2023 21:09-0400 Diastolic blood pressure 86 mm[Hg] Dr. Osmani Morgan Work Phone: [facility] 08-04-2023 21:09-0400 Heart rate 99 /min Dr. Osmani Morgan Work Phone: [facility] 08-04-2023 21:09-0400 Respiratory rate 19 /min Dr. Osmani Morgan Work Phone: [facility] 08-04-2023 21:09-0400 SaO2% (BldA) [Mass fraction] 99 % Dr. Osmani Morgan Work Phone: [facility] 08-04-2023 21:09-0400 Systolic blood pressure 220 mm[Hg] Dr. Osmani Morgan Work Phone: [facility] 08-04-2023 11:53-0400 Body height 149.[address] Osmani Morgan Work Phone: [facility] 08-04-2023 11:53-0400 Body mass index (BMI) [Ratio] 21.4 kg/m2 Dr. Osmani Morgan Work Phone: [facility] 08-04-2023 11:53-0400 Body weight 48.[address] Osmani Morgan Work Phone: [facility] 07-22-2023 16:53-0400 Diastolic blood pressure 71 mm[Hg] Dr. Osmani Morgan Work Phone: [facility] 07-22-2023 16:53-0400 Heart rate 79 /min Dr. Osmani Morgan Work Phone: [facility] 07-22-2023 16:53-0400 Systolic blood pressure 151 mm[Hg] Dr. Osmani Morgan Work Phone: [facility] 07-22-2023 16:00-0400 Body temperature 98.1 [degF] Dr. Osmani Morgan Work Phone: [facility] 07-22-2023 16:00-0400 Respiratory rate 16 /min Dr. Osmani Morgan Work Phone: [facility] 07-22-2023 16:00-0400 SaO2% (BldA) [Mass fraction] 98 % Dr. Osmani Morgan Work Phone: [facility] 07-22-2023 11:02-0400 Body mass index (BMI) [Ratio] 19.1 kg/m2 Dr. Osmani Morgan Work Phone: [facility] 07-22-2023 10:33-0400 Body height 151.[address] Osmani Morgan Work Phone: [facility] 07-22-2023 10:33-0400 Body weight 44.[address] Osmani Morgan Work Phone: [facility] 07-16-2023 02:54-0400 Body temperature 98.9 [degF] Dr. Osmani Morgan Work Phone: [facility] 07-16-2023 02:54-0400 Diastolic blood pressure 87 mm[Hg] Dr. Osmani Morgan Work Phone: [facility] 07-16-2023 02:54-0400 Heart rate 67 /min Dr. Osmani Morgan Work Phone: [facility] 07-16-2023 02:54-0400 Respiratory rate 18 /min Dr. Osmani Morgan Work Phone: [facility] 07-16-2023 02:54-0400 SaO2% (BldA) [Mass fraction] 94 % Dr. Osmani Morgan Work Phone: [facility] 07-16-2023 02:54-0400 Systolic blood pressure 184 mm[Hg] Dr. Osmani Morgan Work Phone: [facility] 07-15-2023 22:44-0400 Body height 152.[address] Osmani Morgan Work Phone: [facility] 07-15-2023 22:44-0400 Body mass index (BMI) [Ratio] 21.5 kg/m2 Dr. Osmani Morgan Work Phone: [facility] 07-15-2023 22:44-0400 Body weight [address] Osmani Morgan Work Phone: [facility] 06-05-2023 13:42-0500 Body height 152.[address] Osmani Morgan Work Phone: [facility] 06-05-2023 13:42-0500 Body mass index (BMI) [Ratio] 21.5 kg/m2 Dr. Osmani Morgan Work Phone: [facility] 06-05-2023 13:42-0500 Body temperature 97.6 [degF] Dr. Osmani Morgan Work Phone: [facility] 06-05-2023 13:42-0500 Body weight 50.[address] Osmani Morgan Work Phone: [facility] 06-05-2023 13:42-0500 Diastolic blood pressure 68 mm[Hg] Dr. Osmani Morgan Work Phone: [facility] 06-05-2023 13:42-0500 Heart rate 66 /min Dr. Osmani Morgan Work Phone: [facility] 06-05-2023 13:42-0500 Respiratory rate 16 /min Dr. Osmani Morgna Work Phone: [facility] 06-05-2023 13:42-0500 SaO2% (BldA) [Mass fraction] 98 % Dr. Osmani Morgan Work Phone: [facility] 06-05-2023 13:42-0500 Systolic blood pressure 158 mm[Hg] Dr. Osmani Morgan Work Phone: [facility] 11-28-2022 09:38-0400 Body height 152.4 cm Out [facility] 11-28-2022 09:38-0400 Body mass index (BMI) [Ratio] 24.4 kg/m2 Out [facility] 11-28-2022 09:38-0400 Body temperature 97.7 [degF] Out [facility] 11-28-2022 09:38-0400 Body weight 56.69 kg Out [facility] 11-28-2022 09:38-0400 Diastolic blood pressure 45 mm[Hg] Out [facility] 11-28-2022 09:38-0400 Heart rate 65 /min Out [facility] 11-28-2022 09:38-0400 Respiratory rate 16 /min Out [facility] 11-28-2022 09:38-0400 SaO2% (BldA) [Mass fraction] 98 % Out [facility] 11-28-2022 09:38-0400 Systolic blood pressure 151 mm[Hg] Out [facility] 11-20-2022 12:25-0400 Diastolic blood pressure 48 mm[Hg] Out [facility] 11-20-2022 12:25-0400 Heart rate 62 /min Out [facility] 11-20-2022 12:25-0400 Respiratory rate 16 /min Out [facility] 11-20-2022 12:25-0400 Systolic blood pressure 154 mm[Hg] Out [facility] 11-20-2022 10:05-0400 Body height 152.4 cm Out [facility] 11-20-2022 10:05-0400 Body mass index (BMI) [Ratio] 24.7 kg/m2 Out [facility] 11-20-2022 10:05-0400 Body temperature 97.1 [degF] Out [facility] 11-20-2022 10:05-0400 Body weight 57.6 kg Out [facility] 11-20-2022 10:05-0400 SaO2% (BldA) [Mass fraction] 100 % Out [facility] 11-13-2022 10:37-0400 Diastolic blood pressure 51 mm[Hg] Out [facility] 11-13-2022 10:37-0400 Heart rate 67 /min Out [facility] 11-13-2022 10:37-0400 Systolic blood pressure 160 mm[Hg] Out [facility] 11-13-2022 10:11-0400 Body height 152.4 cm Out [facility] 11-13-2022 10:11-0400 Body mass index (BMI) [Ratio] 24.4 kg/m2 Out [facility] 11-13-2022 10:11-0400 Body temperature 97.4 [degF] Out [facility] 11-13-2022 10:11-0400 Body weight 56.69 kg Out [facility] 11-13-2022 10:11-0400 Respiratory rate 16 /min Out [facility] 11-13-2022 10:11-0400 SaO2% (BldA) [Mass fraction] 98 % Out [facility] 11-06-2022 11:09-0400 Body height 152.4 cm Out [facility] 11-06-2022 11:09-0400 Body temperature 97.4 [degF] Out [facility] 11-06-2022 11:09-0400 Diastolic blood pressure 55 mm[Hg] Out [facility] 11-06-2022 11:09-0400 Heart rate 77 /min Out [facility] 11-06-2022 11:09-0400 Respiratory rate 16 /min Out [facility] 11-06-2022 11:09-0400 Systolic blood pressure 177 mm[Hg] Out [facility] 10-30-2022 09:59-0400 Body height 152.4 cm Out [facility] 10-30-2022 09:59-0400 Body mass index (BMI) [Ratio] 30.7 kg/m2 Out [facility] 10-30-2022 09:59-0400 Body temperature 97.7 [degF] Out [facility] 10-30-2022 09:59-0400 Body weight 71.21 kg Out [facility] 10-30-2022 09:59-0400 Diastolic blood pressure 66 mm[Hg] Out [facility] 10-30-2022 09:59-0400 Heart rate 82 /min Out [facility] 10-30-2022 09:59-0400 Respiratory rate 16 /min Out [facility] 10-30-2022 09:59-0400 SaO2% (BldA) [Mass fraction] 97 % Out [facility] 10-30-2022 09:59-0400 Systolic blood pressure 154 mm[Hg] Out [facility] 10-23-2022 10:34-0400 Body mass index (BMI) [Ratio] 24.7 kg/m2 Out [facility] 10-23-2022 10:34-0400 Body temperature 96.3 [degF] Out [facility] 10-23-2022 10:34-0400 Body weight 57.6 kg Out [facility] 10-23-2022 10:34-0400 Diastolic blood pressure 56 mm[Hg] Out [facility] 10-23-2022 10:34-0400 Heart rate 73 /min Out [facility] 10-23-2022 10:34-0400 Respiratory rate 16 /min Out [facility] 10-23-2022 10:34-0400 SaO2% (BldA) [Mass fraction] 100 % Out [facility] 10-23-2022 10:34-0400 Systolic blood pressure 190 mm[Hg] Out [facility] 10-17-2022 12:52-0400 Body temperature 97.9 [degF] Out [facility] 10-17-2022 12:52-0400 Diastolic blood pressure 60 mm[Hg] Out [facility] 10-17-2022 12:52-0400 Heart rate 76 /min Out [facility] 10-17-2022 12:52-0400 Respiratory rate 16 /min Out [facility] 10-17-2022 12:52-0400 Systolic blood pressure 168 mm[Hg] Out [facility] 10-10-2022 14:15-0400 Diastolic blood pressure 59 mm[Hg] Out [facility] 10-10-2022 14:15-0400 Heart rate 70 /min Out [facility] 10-10-2022 14:15-0400 Respiratory rate 18 /min Out [facility] 10-10-2022 14:15-0400 SaO2% (BldA) [Mass fraction] 96 % Out [facility] 10-10-2022 14:15-0400 Systolic blood pressure 164 mm[Hg] Out [facility] 10-10-2022 13:00-0400 Body temperature 97.4 [degF] Out [facility] 10-10-2022 06:53-0400 Body height 152.4 cm Out [facility] 10-10-2022 06:53-0400 Body mass index (BMI) [Ratio] 24.5 kg/m2 Out [facility] 10-10-2022 06:53-0400 Body weight 57 kg Out [facility] 09-18-2022 10:39-0400 Body mass index (BMI) [Ratio] 23.8 kg/m2 Out [facility] 09-18-2022 10:39-0400 Body temperature 97.5 [degF] Out [facility] 09-18-2022 10:39-0400 Body weight 55.33 kg Out [facility] 09-18-2022 10:39-0400 Diastolic blood pressure 60 mm[Hg] Out [facility] 09-18-2022 10:39-0400 Heart rate 56 /min Out [facility] 09-18-2022 10:39-0400 Respiratory rate 16 /min Out [facility] 09-18-2022 10:39-0400 SaO2% (BldA) [Mass fraction] 99 % Out [facility] 09-18-2022 10:39-0400 Systolic blood pressure 163 mm[Hg] Out [facility] 08-22-2022 14:36-0400 Body temperature 97.6 [degF] Out [facility] 08-22-2022 14:36-0400 Diastolic blood pressure 57 mm[Hg] Out [facility] 08-22-2022 14:36-0400 Heart rate 55 /min Out [facility] 08-22-2022 14:36-0400 Respiratory rate 16 /min Out [facility] 08-22-2022 14:36-0400 SaO2% (BldA) [Mass fraction] 96 % Out [facility] 08-22-2022 14:36-0400 Systolic blood pressure 151 mm[Hg] Out [facility] 08-22-2022 09:49-0400 Body mass index (BMI) [Ratio] 23.8 kg/m2 Out [facility] 08-22-2022 09:49-0400 Body weight 55.4 kg Out [facility] 08-21-2022 12:06-0400 Body temperature 96.6 [degF] Out [facility] 08-21-2022 12:06-0400 Diastolic blood pressure 59 mm[Hg] Out [facility] 08-21-2022 12:06-0400 Heart rate 53 /min Out [facility] 08-21-2022 12:06-0400 Respiratory rate 16 /min Out [facility] 08-21-2022 12:06-0400 SaO2% (BldA) [Mass fraction] 97 % Out [facility] 08-21-2022 12:06-0400 Systolic blood pressure 171 mm[Hg] Out [facility] 08-21-2022 10:01-0400 Body height 152.4 cm Out [facility] 08-21-2022 10:01-0400 Body mass index (BMI) [Ratio] 23.8 kg/m2 Out [facility] 08-21-2022 10:01-0400 Body weight 55.33 kg Out [facility] 08-15-2022 13:27-0400 Body height 152.4 cm Out [facility] 08-15-2022 13:27-0400 Body mass index (BMI) [Ratio] 23.5 kg/m2 Out [facility] 08-15-2022 13:27-0400 Body temperature 96.6 [degF] Out [facility] 08-15-2022 13:27-0400 Body weight 54.6 kg Out [facility] 08-15-2022 13:27-0400 Diastolic blood pressure 76 mm[Hg] Out [facility] 08-15-2022 13:27-0400 Heart rate 60 /min Out [facility] 08-15-2022 13:27-0400 Respiratory rate 18 /min Out [facility] 08-15-2022 13:27-0400 SaO2% (BldA) [Mass fraction] 97 % Out [facility] 08-15-2022 13:27-0400 Systolic blood pressure 158 mm[Hg] Out [facility] 08-14-2022 12:41-0400 Body temperature 97.1 [degF] Out [facility] 08-14-2022 12:41-0400 Diastolic blood pressure 70 mm[Hg] Out [facility] 08-14-2022 12:41-0400 Heart rate 58 /min Out [facility] 08-14-2022 12:41-0400 Respiratory rate 16 /min Out [facility] 08-14-2022 12:41-0400 SaO2% (BldA) [Mass fraction] 97 % Out [facility] 08-14-2022 12:41-0400 Systolic blood pressure 178 mm[Hg] Out [facility] 08-14-2022 10:09-0400 Body mass index (BMI) [Ratio] 23.8 kg/m2 Out [facility] 08-14-2022 10:09-0400 Body weight 55.33 kg Out [facility] 08-07-2022 12:50-0400 Body temperature 97.4 [degF] Out [facility] 08-07-2022 12:50-0400 Diastolic blood pressure 59 mm[Hg] Out [facility] 08-07-2022 12:50-0400 Heart rate 66 /min Out [facility] 08-07-2022 12:50-0400 Respiratory rate 16 /min Out [facility] 08-07-2022 12:50-0400 SaO2% (BldA) [Mass fraction] 98 % Out [facility] 08-07-2022 12:50-0400 Systolic blood pressure 190 mm[Hg] Out [facility] 08-07-2022 10:11-0400 Body height 152.4 cm Out [facility] 08-07-2022 10:11-0400 Body mass index (BMI) [Ratio] 23.4 kg/m2 Out [facility] 08-07-2022 10:11-0400 Body weight 54.43 kg Out [facility] 08-01-2022 10:23-0400 Body mass index (BMI) [Ratio] 23 kg/m2 Out [facility] 08-01-2022 10:23-0400 Body weight 53.52 kg Out [facility] 08-01-2022 10:23-0400 Diastolic blood pressure 75 mm[Hg] Out [facility] 08-01-2022 10:23-0400 Respiratory rate 18 /min Out [facility] 08-01-2022 10:23-0400 Systolic blood pressure 207 mm[Hg] Out [facility] 07-31-2022 10:42-0400 Diastolic blood pressure 65 mm[Hg] Out [facility] 07-31-2022 10:42-0400 Systolic blood pressure 176 mm[Hg] Out [facility] 07-31-2022 10:17-0400 Body temperature 96.9 [degF] Out [facility] 07-31-2022 10:17-0400 Heart rate 60 /min Out [facility] 07-31-2022 10:17-0400 Respiratory rate 16 /min Out [facility] 07-31-2022 10:17-0400 SaO2% (BldA) [Mass fraction] 96 % Out [facility] 07-25-2022 08:16-0400 Body height 152.[address] Diana Titus Work Phone: [facility] 07-25-2022 08:16-0400 Body mass index (BMI) [Ratio] 23 kg/m2 Dr. Diana Titus Work Phone: [facility] 07-25-2022 08:16-0400 Body weight 53.[address] Diana Titus Work Phone: [facility] 07-25-2022 08:16-0400 Diastolic blood pressure 64 mm[Hg] Dr. Diana Titus Work Phone: [facility] 07-25-2022 08:16-0400 Heart rate 64 /min Dr. Diana Titus Work Phone: [facility] 07-25-2022 08:16-0400 Respiratory rate 16 /min Dr. Diana Titus Work Phone: [facility] 07-25-2022 08:16-0400 Systolic blood pressure 143 mm[Hg] Dr. Diana Titus Work Phone: [facility] 07-18-2022 08:16-0400 Body mass index (BMI) [Ratio] 23 kg/m2 Dr. Diana Titus Work Phone: [facility] 07-18-2022 08:16-0400 Body temperature 97.2 [degF] Dr. Diana Titus Work Phone: [facility] 07-18-2022 08:16-0400 Body weight 53.[address] Diana Titus Work Phone: [facility] 07-18-2022 08:16-0400 Diastolic blood pressure 57 mm[Hg] Dr. Diana Titus Work Phone: [facility] 07-18-2022 08:16-0400 Heart rate 56 /min Dr. Diana Titus Work Phone: [facility] 07-18-2022 08:16-0400 Respiratory rate 14 /min Dr. Diana Titus Work Phone: [facility] 07-18-2022 08:16-0400 SaO2% (BldA) [Mass fraction] 99 % Dr. Diana Titus Work Phone: [facility] 07-18-2022 08:16-0400 Systolic blood pressure 151 mm[Hg] Dr. Diana Titus Work Phone: [facility] 07-11-2022 08:20-0400 Body mass index (BMI) [Ratio] 23 kg/m2 Dr. Diana Titus Work Phone: [facility] 07-11-2022 08:20-0400 Body temperature 97.8 [degF] Dr. Diana Titus Work Phone: [facility] 07-11-2022 08:20-0400 Body weight 53.[address] Diana Titus Work Phone: [facility] 07-11-2022 08:20-0400 Diastolic blood pressure 65 mm[Hg] Dr. Diana Titus Work Phone: [facility] 07-11-2022 08:20-0400 Heart rate 56 /min Dr. Diana Titus Work Phone: [facility] 07-11-2022 08:20-0400 Respiratory rate 16 /min Dr. Diana Titus Work Phone: [facility] 07-11-2022 08:20-0400 SaO2% (BldA) [Mass fraction] 99 % Dr. Diana Titus Work Phone: [facility] 07-11-2022 08:20-0400 Systolic blood pressure 165 mm[Hg] Dr. Diana Titus Work Phone: [facility] 07-04-2022 09:33-0500 Body height 152.4 cm [facility] 07-04-2022 09:33-0500 Body mass index (BMI) [Ratio] 23 kg/m2 [facility] 07-04-2022 09:33-0500 Body temperature 97.6 [degF] [facility] 07-04-2022 09:33-0500 Body weight 53.52 kg [facility] 07-04-2022 09:33-0500 Diastolic blood pressure 52 mm[Hg] [facility] 07-04-2022 09:33-0500 Heart rate 66 /min [facility] 07-04-2022 09:33-0500 Respiratory rate 16 /min [facility] 07-04-2022 09:33-0500 SaO2% (BldA) [Mass fraction] 99 % [facility] 07-04-2022 09:33-0500 Systolic blood pressure 165 mm[Hg] [facility] 06-27-2022 08:40-0500 Body height 152.4 cm [facility] 06-27-2022 08:40-0500 Body mass index (BMI) [Ratio] 23 kg/m2 [facility] 06-27-2022 08:40-0500 Body temperature 97.5 [degF] [facility] 06-27-2022 08:40-0500 Body weight 53.52 kg [facility] 06-27-2022 08:40-0500 Diastolic blood pressure 61 mm[Hg] [facility] 06-27-2022 08:40-0500 Heart rate 58 /min [facility] 06-27-2022 08:40-0500 Respiratory rate 14 /min [facility] 06-27-2022 08:40-0500 SaO2% (BldA) [Mass fraction] 97 % [facility] 06-27-2022 08:40-0500 Systolic blood pressure 157 mm[Hg] [facility] 06-13-2022 08:10-0500 Body height 152.4 cm [facility] 06-13-2022 08:10-0500 Body mass index (BMI) [Ratio] 24.4 kg/m2 [facility] 06-13-2022 08:10-0500 Body temperature 97.6 [degF] [facility] 06-13-2022 08:10-0500 Body weight 56.69 kg [facility] 06-13-2022 08:10-0500 Diastolic blood pressure 60 mm[Hg] [facility] 06-13-2022 08:10-0500 Heart rate 58 /min [facility] 06-13-2022 08:10-0500 Respiratory rate 14 /min [facility] 06-13-2022 08:10-0500 SaO2% (BldA) [Mass fraction] 100 % [facility] 06-13-2022 08:10-0500 Systolic blood pressure 143 mm[Hg] [facility] 05-23-2022 14:16-0500 Body height 152.4 cm LORRIE MCKNIGHT MD [facility] 05-23-2022 14:10-0500 Body temperature 97.52 [degF] LORRIE MCKNIGHT MD [facility] 05-23-2022 14:10-0500 Diastolic Blood Pressure Non-Invasive 52 1 LORRIE MCKNIGHT MD [facility] 05-23-2022 14:10-0500 Heart rate 65 /min LORRIE MCKNIGHT MD [facility] 05-23-2022 14:10-0500 Systolic Blood Pressure Non-Invasive 133 1 LORRIE MCKNIGHT MD [facility] 03-19-2022 13:18-0500 Diastolic Blood Pressure Non-Invasive 70 1 SHIRA ROY MD [facility] 03-19-2022 13:18-0500 Systolic Blood Pressure Non-Invasive 164 1 SHIRA ROY MD [facility] 03-19-2022 13:14-0500 Diastolic Blood Pressure Non-Invasive 70 1 SHIRA ROY MD [facility] 03-19-2022 13:14-0500 Heart rate 56 /min SHIRA ROY MD [facility] 03-19-2022 13:14-0500 Mean blood pressure 100 mm[Hg] SHIRA ROY MD [facility] 03-19-2022 13:14-0500 Systolic Blood Pressure Non-Invasive 164 1 SHIRA ROY MD [facility] 03-19-2022 11:48-0500 Reason For Taking VItal Signs SHIRA ROY MD [facility] 03-19-2022 11:31-0500 Heart rate 56 /min SHIRA ROY MD [facility] 03-19-2022 10:26-0500 Blood Pressure Location SHIRA ROY MD [facility] 03-19-2022 10:26-0500 Blood Pressure Method SHIRA ROY MD [facility] 03-19-2022 10:26-0500 Body temperature 97.88 [degF] SHIRA ROY MD [facility] 03-19-2022 10:26-0500 Diastolic Blood Pressure Non-Invasive 52 1 SHIRA ROY MD [facility] 03-19-2022 10:26-0500 Heart rate 56 /min SHIRA ROY MD [facility] 03-19-2022 10:26-0500 Reason For Taking VItal Signs SHIRA ROY MD [facility] 03-19-2022 10:26-0500 Respiratory rate 16 /min SHIRA ROY MD [facility] 03-19-2022 10:26-0500 Systolic Blood Pressure Non-Invasive 155 1 SHIRA ROY MD [facility] 03-19-2022 06:48-0500 Body temperature 98.24 [degF] SHIRA ROY MD [facility] 03-19-2022 06:48-0500 Heart rate 58 /min SHIRA ROY MD [facility] 03-19-2022 06:48-0500 Respiratory rate 16 /min SHIRA ROY MD [facility] 03-19-2022 03:57-0500 Blood Pressure Location SHIRA ROY MD [address]22-2022 03:57-0500 Blood Pressure Method SHIRA ROY MD [facility] 03-19-2022 03:57-0500 Body temperature 98.42 [degF] SHIRA ROY MD [facility] 03-19-2022 03:57-0500 Heart rate 67 /min SHIRA ROY MD [facility] 03-19-2022 03:57-0500 Respiratory rate 16 /min SHIRA ROY MD [facility] 03-19-2022 01:15-0500 Blood Pressure Location SHIRA ROY MD [facility] 03-19-2022 01:15-0500 Blood Pressure Method SHIRA ROY MD [facility] 03-19-2022 01:07-0500 Reason For Taking VItal Signs SHIRA ROY MD [facility] 03-18-2022 22:22-0500 Heart rate 82 /min SHIRA ROY MD [facility] 03-18-2022 22:22-0500 Signs/Symptoms Transfusion Reaction SHIRA ROY MD [facility] 03-18-2022 18:27-0500 Signs/Symptoms Transfusion Reaction SHIRA ROY MD [facility] 03-18-2022 17:49-0500 Signs/Symptoms Transfusion Reaction SHIRA ROY MD [facility] 03-18-2022 17:26-0500 Diastolic blood pressure 48 mm[Hg] SHIRA ROY MD [facility] 03-18-2022 17:26-0500 Systolic blood pressure 166 mm[Hg] SHIRA ROY MD [facility] 03-18-2022 15:20-0500 Heart rate 75 /min SHIRA ROY MD [facility] 03-15-2022 18:13-0500 Body height 152.4 cm SHIRA ROY MD [facility] 03-15-2022 18:13-0500 Body weight 59 kg SHIRA ROY MD [facility] 03-15-2022 18:13-0500 Body weight 25.4 kg/m2 SHIRA ROY MD [facility] 03-15-2022 15:58-0500 Heart rate 71 /min HSIRA ROY MD [facility] 03-15-2022 15:31-0500 Heart rate 66 /min SHIRA ROY MD [facility] 03-14-2022 19:33-0500 Body weight 59 kg SHIRA ROY MD [facility] 01-24-2022 14:35-0400 Body temperature 98.06 [degF] LORRIE MCKNIGHT MD [facility] 01-24-2022 14:35-0400 Heart rate 61 /min LORRIE MCKNIGHT MD [facility] 01-24-2022 14:35-0400 Diastolic blood pressure 60 mm[Hg] LORRIE MCKNIGHT MD [facility] 01-24-2022 14:35-0400 Mean blood pressure 79 mm[Hg] LORRIE MCKNIGHT MD [facility] 01-24-2022 14:35-0400 Systolic blood pressure 118 mm[Hg] LORRIE MCKNIGHT MD [facility] 01-10-2022 15:19-0400 Body temperature 98.24 [degF] LORRIE MCKNIGHT MD [facility] 01-10-2022 15:19-0400 diastolic 65 mm[Hg] LORRIE MCKNIGHT MD [facility] 01-10-2022 15:19-0400 Heart rate 70 /min LORRIE MCKNIGHT MD [facility] 01-10-2022 15:19-0400 Respiratory rate 16 /min LORRIE MCKNIGHT MD [facility] 01-10-2022 15:19-0400 systolic 181 mm[Hg] LORRIE MCKNIGHT MD [facility] Comment on above: Result Comment: doctor notified 01-03-2022 15:03-0400 diastolic 78 mm[Hg] LORRIE MCKNIGHT MD [facility] 01-03-2022 15:03-0400 Respiratory rate 18 /min LORRIE MCKNIGHT MD [facility] 01-03-2022 15:03-0400 systolic 190 mm[Hg] LORRIE MCKNIGHT MD [facility] 01-03-2022 14:48-0400 Body temperature 98.24 [degF] LORRIE MCKNIGHT MD [facility] 01-03-2022 14:48-0400 Diastolic Blood Pressure NBP 67 1 LORRIE MCKNIGHT MD [facility] 01-03-2022 14:48-0400 Heart rate 70 /min LORRIE MCKNIGHT MD [facility] 01-03-2022 14:48-0400 Systolic Blood Pressure NBP 205 1 LORRIE MCKNIGHT MD [facility] 12-27-2021 15:03-0400 Body temperature 97.88 [degF] LORRIE MCKNIGHT MD [facility] 12-27-2021 15:03-0400 Diastolic blood pressure 55 mm[Hg] LORRIE MCKNIGHT MD [facility] 12-27-2021 15:03-0400 Heart rate 62 /min LORRIE MCKNIGHT MD [facility] 12-27-2021 15:03-0400 Reason For Taking VItal Signs LORRIE MCKNIGHT MD [facility] 12-27-2021 15:03-0400 Respiratory rate 16 /min LORRIE MCKNIGHT MD [facility] 12-27-2021 15:03-0400 Systolic blood pressure 165 mm[Hg] LORRIE MCKNIGHT MD [facility] 11-30-2021 14:07-0400 Body temperature 98.06 [degF] LORRIE MCKNIGHT MD [facility] 11-30-2021 14:07-0400 Diastolic Blood Pressure NBP 54 1 LORRIE MCKNIGHT MD [facility] 11-30-2021 14:07-0400 Heart rate 64 /min LORRIE MCKNIGHT MD [facility] 11-30-2021 14:07-0400 Systolic Blood Pressure NBP 162 1 LORRIE MCKNIGHT MD [facility] 11-30-2021 14:07-0400 Respiratory rate 18 /min LORRIE MCKNIGHT MD [facility] 11-23-2021 14:59-0400 Diastolic blood pressure 60 mm[Hg] [employer] Work Phone: [facility] 11-23-2021 14:59-0400 Systolic blood pressure 161 mm[Hg] [employer] Work Phone: [facility] 11-23-2021 14:15-0400 Body height 152.4 cm [employer] [facility] Work Phone: [facility] 11-23-2021 14:15-0400 Body temperature 98.1 [degF] [facility] Work Phone: [facility] 11-23-2021 14:15-0400 Body weight 59.42 kg [employer] [facility] Work Phone: [facility] 11-23-2021 14:15-0400 Heart rate 65 /min [facility] Work Phone: [facility] 11-23-2021 14:15-0400 SaO2% (BldA) [Mass fraction] 100 % [facility] 5 Work Phone: [facility] 11-19-2021 14:07-0400 Body temperature 98.06 [degF] LORRIE MCKNIGHT MD [facility] 11-19-2021 14:07-0400 Diastolic Blood Pressure NBP 70 1 LORRIE MCKNIGHT MD [facility] 11-19-2021 14:07-0400 Heart rate 83 /min LORRIE MCKNIGHT MD [facility] 11-19-2021 14:07-0400 Systolic Blood Pressure NBP 150 1 LORRIE MCKNIGHT MD [facility] 11-19-2021 10:53-0400 Body temperature 98.42 [degF] LORRIE MCKNIGHT MD [facility] 11-19-2021 10:53-0400 Diastolic Blood Pressure NBP 67 1 LORRIE MCKNIGHT MD [facility] 11-19-2021 10:53-0400 Heart rate 82 /min LORRIE MCKNIGHT MD [facility] 11-19-2021 10:53-0400 Systolic Blood Pressure NBP 125 1 LORRIE MCKNIGHT MD [facility] 11-09-2021 14:01-0400 Body temperature 97.7 [degF] LORRIE MCNKIGHT MD [facility] 11-09-2021 14:01-0400 Diastolic blood pressure 66 mm[Hg] LORRIE MCKNIGHT MD [facility] 11-09-2021 14:01-0400 Heart rate 74 /min LORRIE MCKNIGHT MD [facility] 11-09-2021 14:01-0400 Respiratory rate 18 /min LORRIE MCKNIGHT MD [facility] 11-09-2021 14:01-0400 Systolic blood pressure 185 mm[Hg] LORRIE MCKNIGHT MD [facility] 11-02-2021 13:18-0400 Body temperature 98.42 [degF] LORRIE MCKNIGHT MD [facility] 11-02-2021 13:18-0400 diastolic 51 mm[Hg] LORRIE MCKNIGHT MD [facility] 11-02-2021 13:18-0400 Heart rate 62 /min LORRIE MCKNIGHT MD [facility] 11-02-2021 13:18-0400 Respiratory rate 20 /min LORRIE MCKNIGHT MD [facility] 11-02-2021 13:18-0400 systolic 150 mm[Hg] LORRIE MCKNIGHT MD [facility] 10-26-2021 13:37-0400 Body temperature 98.06 [degF] LORRIE MCKNIGHT MD [facility] 10-26-2021 13:37-0400 Diastolic blood pressure 54 mm[Hg] LORRIE MCKNIGHT MD [facility] 10-26-2021 13:37-0400 Heart rate 60 /min LORRIE MCKNIGHT MD [facility] 10-26-2021 13:37-0400 Respiratory rate 18 /min LORRIE MCKNIGHT MD [facility] 10-26-2021 13:37-0400 Systolic blood pressure 170 mm[Hg] LORRIE MCKNIGHT MD [facility] 09-03-2021 16:28-0400 diastolic 65 mm[Hg] LORRIE MCKNIGHT MD [facility] 09-03-2021 16:28-0400 Respiratory rate 18 /min LORRIE MCKNIGHT MD [facility] 09-03-2021 16:28-0400 systolic 185 mm[Hg] LORRIE MCKNIGHT MD [facility] 09-03-2021 14:21-0400 diastolic 74 mm[Hg] LORRIE MCKNIGHT MD [facility] 09-03-2021 14:21-0400 systolic 179 mm[Hg] LORRIE MCKNIGHT MD [facility] 09-03-2021 14:09-0400 diastolic 59 mm[Hg] LORRIE MCKNIGHT MD [facility] 09-03-2021 14:09-0400 diastolic 58 mm[Hg] LORRIE MCKNIGHT MD [facility] 09-03-2021 14:09-0400 Heart rate 63 /min LORRIE MCKNIGHT MD [facility] 09-03-2021 14:09-0400 Reason For Taking VItal Signs LORRIE MCKNIGHT MD [facility] 09-03-2021 14:09-0400 Respiratory rate 18 /min LORRIE MCKNIGHT MD [facility] 09-03-2021 14:09-0400 systolic 183 mm[Hg] LORRIE MCKNIGHT MD [facility] 09-03-2021 14:09-0400 systolic 188 mm[Hg] LORRIE MCKNIGHT MD [facility] 08-29-2021 16:18-0400 diastolic 77 mm[Hg] LORRIE MCKNIGHT MD [facility] 08-29-2021 16:18-0400 Heart rate 57 /min LORRIE MCKNIGHT MD [facility] 08-29-2021 16:18-0400 Respiratory rate 18 /min LORRIE MCKNIGHT MD [facility] 08-29-2021 16:18-0400 systolic 152 mm[Hg] LORRIE MCKNIGHT MD [facility] 08-29-2021 14:34-0400 Body temperature 97.7 [degF] LORRIE MCKNIGHT MD [facility] 08-29-2021 14:34-0400 diastolic 53 mm[Hg] LORRIE MCKNIGHT MD [facility] 08-29-2021 14:34-0400 Heart rate 58 /min LORRIE MCKNIGHT MD [facility] 08-29-2021 14:34-0400 systolic 139 mm[Hg] LORRIE MCKNIGHT MD [facility] 08-27-2021 16:28-0400 Diastolic blood pressure 74 mm[Hg] LORRIE MCKNIGHT MD [facility] 08-27-2021 16:28-0400 Heart rate 58 /min LORRIE MCKNIGHT MD [facility] 08-27-2021 16:28-0400 Mean blood pressure 104 mm[Hg] LORRIE MCKNIGHT MD [facility] 08-27-2021 16:28-0400 Respiratory rate 18 /min LORRIE MCKNIGHT MD [facility] 08-27-2021 16:28-0400 Systolic blood pressure 164 mm[Hg] LORRIE MCKNIGHT MD [facility] 08-27-2021 14:39-0400 Diastolic blood pressure 72 mm[Hg] LORRIE MCKNIGHT MD [facility] 08-27-2021 14:39-0400 Systolic blood pressure 138 mm[Hg] LORRIE MCKNIGHT MD [facility] 08-27-2021 14:02-0400 Diastolic blood pressure 84 mm[Hg] LORRIE MCKNIGHT MD [facility] 08-27-2021 14:02-0400 Heart rate 60 /min LORRIE MCKNIGHT MD [facility] 08-27-2021 14:02-0400 Mean blood pressure 122 mm[Hg] LORRIE MCKNIGHT MD [facility] 08-27-2021 14:02-0400 Reason For Taking VItal Signs LORRIE MCKNIGHT MD [facility] 08-27-2021 14:02-0400 Respiratory rate 18 /min LORRIE MCKNIGHT MD [facility] 08-27-2021 14:02-0400 Systolic blood pressure 199 mm[Hg] LORRIE MCKNIGHT MD [facility] 08-22-2021 14:11-0400 Body temperature 98.24 [degF] LORRIE MCKNIGHT MD [facility] 08-22-2021 14:11-0400 diastolic 79 mm[Hg] LORRIE MCKNIGHT MD [facility] 08-22-2021 14:11-0400 Heart rate 60 /min LORRIE MCKNIGHT MD [facility] 08-22-2021 14:11-0400 Respiratory rate 18 /min LORRIE MCKNIGHT MD [facility] 08-22-2021 14:11-0400 systolic 180 mm[Hg] LORRIE MCKNIGHT MD [facility] 08-15-2021 14:07-0400 Body temperature 97.88 [degF] LORRIE MCKNIGHT MD [facility] 08-15-2021 14:07-0400 Diastolic blood pressure 66 mm[Hg] LORRIE MCKNIGHT MD [facility] 08-15-2021 14:07-0400 Heart rate 57 /min LORRIE MCKNIGHT MD [facility] 08-15-2021 14:07-0400 Mean blood pressure 103 mm[Hg] LORRIE MCKNIGHT MD [facility] 08-15-2021 14:07-0400 Reason For Taking VItal Signs LORRIE MCKNIGHT MD [facility] 08-15-2021 14:07-0400 Respiratory rate 18 /min LORRIE MCKNIGHT MD [facility] 08-15-2021 14:07-0400 Systolic blood pressure 178 mm[Hg] LORRIE MCKNIGHT MD [facility] 08-08-2021 14:00-0400 Body temperature 97.88 [degF] LORRIE MCKNIGHT MD [facility] 08-08-2021 14:00-0400 Diastolic blood pressure 64 mm[Hg] LORRIE MCKNIGHT MD [facility] 08-08-2021 14:00-0400 Heart rate 62 /min LORRIE MCKNIGHT MD [facility] 08-08-2021 14:00-0400 Systolic blood pressure 162 mm[Hg] LORRIE MCKNIGHT MD [facility] 08-01-2021 14:14-0400 Body temperature 98.06 [degF] LORRIE MCKNIGHT MD [facility] 08-01-2021 14:14-0400 Diastolic blood pressure 47 mm[Hg] LORRIE MCKNIGHT MD [facility] 08-01-2021 14:14-0400 Heart rate 64 /min LORRIE MCKNIGHT MD [facility] 08-01-2021 14:14-0400 Systolic blood pressure 139 mm[Hg] LORRIE MCKNIGHT MD [facility] 08-01-2021 14:13-0400 Respiratory rate 18 /min LORRIE MCKNIGHT MD [facility] 07-18-2021 14:03-0400 Body temperature 98.06 [degF] LORRIE MCKNIGHT MD [facility] 07-18-2021 14:03-0400 Diastolic blood pressure 57 mm[Hg] LORRIE MCKNIGHT MD [facility] 07-18-2021 14:03-0400 Heart rate 61 /min LORRIE MCKNIGHT MD [facility] 07-18-2021 14:03-0400 Systolic blood pressure 168 mm[Hg] LORRIE MCKNIGHT MD [facility] 07-13-2021 12:40-0400 Body temperature 97.34 [degF] LORRIE MCKNIGHT MD [facility] 07-13-2021 12:40-0400 Diastolic blood pressure 57 mm[Hg] LORRIE MCKNIGHT MD [facility] 07-13-2021 12:40-0400 Heart rate 65 /min LORRIE MCKNIGHT MD [facility] 07-13-2021 12:40-0400 Mean blood pressure 85 mm[Hg] LORRIE MCKNIGHT MD [facility] 07-13-2021 12:40-0400 Reason For Taking VItal Signs LORRIE MCKNIGHT MD [facility] 07-13-2021 12:40-0400 Respiratory rate 18 /min LORRIE MCKNIGHT MD [facility] 07-13-2021 12:40-0400 Systolic blood pressure 140 mm[Hg] LORRIE MCKNIGHT MD [facility] 07-04-2021 12:48-0500 Body temperature 97.52 [degF] LORRIE MCKNIGHT MD [facility] 07-04-2021 12:48-0500 Diastolic blood pressure 59 mm[Hg] LORRIE MCKNIGHT MD [facility] 07-04-2021 12:48-0500 Heart rate 62 /min LORRIE MCKNIGHT MD [facility] 07-04-2021 12:48-0500 Mean blood pressure 87 mm[Hg] LORRIE MCKNIGHT MD [facility] 07-04-2021 12:48-0500 Reason For Taking VItal Signs LORRIE MCKNIGHT MD [facility] 07-04-2021 12:48-0500 Respiratory rate 18 /min LORRIE MCKNIGHT MD [facility] 07-04-2021 12:48-0500 Systolic blood pressure 144 mm[Hg] LORRIE MCKNIGHT MD [facility] 05-11-2021 15:12-0500 Diastolic blood pressure 50 mm[Hg] LORRIE MCKNIGHT MD [facility] 05-11-2021 15:12-0500 Heart rate 64 /min LORRIE MCKNIGHT MD [facility] 05-11-2021 15:12-0500 Respiratory rate 18 /min LORRIE MCKNIGHT MD [facility] 05-11-2021 15:12-0500 Systolic blood pressure 154 mm[Hg] LORRIE MCKNIGHT MD [facility] 05-11-2021 13:14-0500 Body temperature 98.06 [degF] LORRIE MCKNIGHT MD [facility] 05-11-2021 13:14-0500 Diastolic blood pressure 54 mm[Hg] LORRIE MCKNIGHT MD [facility] 05-11-2021 13:14-0500 Heart rate 71 /min LORRIE MCKNIGHT MD [facility] 05-11-2021 13:14-0500 Mean blood pressure 93 mm[Hg] LORRIE MCKNIGHT MD [facility] 05-11-2021 13:14-0500 Reason For Taking VItal Signs LORRIE MCKNIGHT MD [facility] 05-11-2021 13:14-0500 Respiratory rate 18 /min LORRIE MCKNIGHT MD [facility] 05-11-2021 13:14-0500 Systolic blood pressure 170 mm[Hg] LORRIE MCKNIGHT MD [facility] 05-09-2021 15:14-0500 diastolic 67 mm[Hg] LORRIE MCKNIGHT MD [facility] 05-09-2021 15:14-0500 Heart rate 62 /min LORRIE MCKNIGHT MD [facility] 05-09-2021 15:14-0500 Respiratory rate 18 /min LORRIE MCKNIGHT MD [facility] 05-09-2021 15:14-0500 systolic 156 mm[Hg] LORRIE MCKNIGHT MD [facility] 05-09-2021 13:14-0500 Body temperature 98.06 [degF] LORRIE MCKNIGHT MD [facility] 05-09-2021 13:14-0500 Diastolic blood pressure 72 mm[Hg] LORRIE MCKNIGHT MD [facility] 05-09-2021 13:14-0500 Heart rate 70 /min LORRIE MCKNIGHT MD [facility] 05-09-2021 13:14-0500 Mean blood pressure 104 mm[Hg] LORRIE MCKNIGHT MD [facility] 05-09-2021 13:14-0500 Reason For Taking VItal Signs LORRIE MCKNIGHT MD [facility] 05-09-2021 13:14-0500 Respiratory rate 18 /min LORRIE MCKNIGHT MD [facility] 05-09-2021 13:14-0500 Systolic blood pressure 169 mm[Hg] LORRIE MCKNIGHT MD [facility] 05-07-2021 15:51-0500 diastolic 72 mm[Hg] LORRIE MCKNIGHT MD [facility] 05-07-2021 15:51-0500 Heart rate 60 /min LORRIE MCKNIGHT MD [facility] 05-07-2021 15:51-0500 Respiratory rate 20 /min LORRIE MCKNIGHT MD [facility] 05-07-2021 15:51-0500 systolic 163 mm[Hg] LORRIE MCKNIGHT MD [facility] 05-07-2021 13:10-0500 Body temperature 97.88 [degF] LORRIE MCKNIGHT MD [facility] 05-07-2021 13:10-0500 diastolic 51 mm[Hg] LORRIE MCKNIGHT MD [facility] [place] 05-07-2021 13:10-0500 Heart rate 59 /min LORRIE MCKNIGHT MD [facility] 05-07-2021 13:10-0500 Respiratory rate 20 /min LORRIE MCKNIGHT MD [facility] 05-07-2021 13:10-0500 systolic 166 mm[Hg] LORRIE MCKNIGHT MD [facility] Encounters Encounter Date Encounter Type Care Provider Facility Start: 10-07-2024 End: 10-07-2024 Patient encounter procedure Jaswinder FERRARA [facility] Work Phone: Start: 10-07-2024 End: 10-07-[address] Osmani Morgan MD Work Phone: [facility] Work Phone: Start: 09-28-2024 ambulatory ROSEANNE LEO MD Facility:A Start: 09-28-2024 End: 09-28-2024 ambulatory ROSEANNE BACA MD Facility:A Start: 09-28-2024 End: 09-28-2024 Patient encounter procedure ROSEANNE BACA MD [facility] Start: 09-16-2024 End: 10-05-2024 Telephone encounter Simone Calvin MD Work Phone: [facility] Comment on above: Cancelled Appointmen t Start: 09-14-2024 End: 09-14-2024 ambulatory SHIRA ROY MD Facility:[facility] Start: 09-14-2024 End: 09-14-2024 Patient encounter procedure ROSEANNE BACA MD [facility] Start: 09-07-2024 End: 09-07-2024 ambulatory SHIRA ROY MD Facility:A Start: 09-07-2024 End: 09-07-2024 Patient encounter procedure CHRISTAL LIMA CORRECTIONAL MAINTENANCE TECHNICIAN-DRAPERY SUPERVISOR [facility] Start: 08-20-2024 End: 08-20-[address] Fabian Lawson MD -Laboratory Specimen Work Phone: Start: 08-20-2024 End: 08-20-2024 Dr. Fabian Lawson MD -Laboratory, Specimen Work Phone: Start: 08-20-2024 End: 08-20-[address] Osmani Morgan MD Work Phone: [facility] Work Phone: Start: 08-17-2024 End: 08-17-2024 ambulatory ROSEANNE BACA MD Facility:A Start: 08-17-2024 End: 08-17-2024 Patient encounter procedure ROSEANNE BACA MD [facility] Start: 08-12-2024 ambulatory Osmani Alexander ty:[facility] Start: 07-27-2024 End: 07-27-2024 ambulatory ROSEANNE BACA MD Facility:A Start: 07-27-2024 End: 07-27-2024 Patient encounter procedure ROSEANNE BACA MD [facility] Start: 07-27-2024 End: 07-27-2024 ambulatory SHIRA ROY MD Facility:A Start: 07-21-2024 End: 07-21-2024 ambulatory Osmani Morgan Facility:[facility] Start: 07-21-2024 End: 07-21-2024 [facility] Start: 07-21-2024 End: 07-21-2024 [facility] Start: 07-19-2024 End: 07-19-2024 Departed Referred Osmani Tucker Start: 07-19-2024 End: 07-19-2024 Osmani Tucker Start: 07-19-2024 End: 07-19-2024 ambulatory Osmani Morgan Facility:[facility] Start: 07-12-2024 Encounter for genera l adult medical examination without abnormal findings Dusty Soliman [facility] Start: 07-12-2024 End: 07-12-2024 Departed Referred Osmani Tucker Start: 07-12-2024 End: 07-12-2024 Osmani Tucker Start: 07-12-2024 End: 07-12-2024 ambulatory [facility] Facility:[facility] Start: 07-08-2024 End: 07-08-2024 ambulatory [facility] Start: 07-08-2024 End: 07-08-2024 Patient encounter procedure Tabby Palmer SUPERVISOR SPECIAL EDUCATION-[place] -[facility] Work Phone: Start: 07-08-2024 End: 07-08-2024 Tabby Palmer NP-[place] -[facility] Work Phone: Start: 07-08-2024 End: 07-08-2024 Telephone encounter Simone Calvin MD Work Phone: [facility] Comment on above: New Patient Start: 07-06-2024 End: 07-06-2024 ambulatory ROSEANNE BACA MD Facility:A Start: 07-06-2024 End: 07-06-2024 Patient encounter procedure ROSEANNE BACA MD [facility] Start: 07-05-2024 End: 07-05-2024 Departed Referred Osmani Tucker Start: 07-05-2024 End: 07-05-2024 Osmani Tucker Start: 07-05-2024 End: 07-05-2024 ambulatory [facility] Facility:[facility] Start: 07-01-2024 End: 07-01-2024 ambulatory ROSEANNE BACA MD Facility:A Start: 07-01-2024 End: 07-01-2024 Departed Referred Osmani Tucker Start: 07-01-2024 End: 07-01-2024 Osmani Tucker Start: 06-30-2024 End: 06-30-2024 Patient encounter procedure Tabby PADRON -Medical Out Work Phone: Start: 06-30-2024 End: 06-30-2024 Tabby PADRON -Medical Out Work Phone: Start: 06-30-2024 End: 07-01-2024 ambulatory CHRISTAL LIMA Facility:A Start: 06-29-2024 End: 06-29-2024 Patient encounter procedure Sherita FERRARA -[facility] Work Phone: Start: 06-29-2024 End: 06-29-2024 Sherita FERRARA -[facility] Work Phone: Start: 06-29-2024 End: 06-29-2024 ambulatory Osmani Morgan Facility:[facility] Start: 06-28-2024 End: 06-28-2024 Departed Referred Osmani Tcuker Start: 06-28-2024 End: 06-28-2024 Osmani Tucker Start: 06-28-2024 End: 06-28-2024 ambulatory Osmani Morgan Facility:[facility] Start: 06-23-2024 ambulatory Efkarime Morgan Facili ty:[facility] Start: 06-23-2024 Registered Referred Osmani Tucker Start: 06-23-2024 Osmani Tucker Start: 06-21-2024 ambulatory Efkarime Morgan Facili ty:[facility] Start: 06-21-2024 Registered Referred Osmani Tucker Start: 06-21-2024 Osmani Tucker Start: 06-18-2024 ambulatory Efewongconstantino Jordane Facili ty:[facility] Start: 06-18-2024 Registered Referred Osmani Tucker Start: 06-18-2024 Osmani Tucker Start: 06-17-2024 End: 06-17-2024 ambulatory ROSEANNE BACA MD Facility: Start: 06-17-2024 End: 06-17-2024 Patient encounter procedure ROSEANNE BACA MD [facility] Start: 06-16-2024 End: 06-16-2024 Patient encounter procedure Tabby Palmer SUPERVISOR SPECIAL EDUCATION-C -[facility] Work Phone: Start: 06-16-2024 End: 06-16-2024 Tabby Palmer NP-C -Medical Out Work Phone: Start: 06-16-2024 End: 06-16-2024 ambulatory Efbertinbe Juliane Facility:[facility] Start: 06-14-2024 ambulatory Efewongbe Oleghe Facili ty:[facility] Start: 06-14-2024 Registered Referred Osmani Tucker Start: 06-14-2024 Osmani Tucker Start: 06-11-2024 ambulatory Efewongbe Oleghe Facili ty:[facility] Start: 06-11-2024 Registered Referred Osmani Tucker Start: 06-11-2024 Osmani Tucker Start: 06-10-2024 End: 06-10-2024 Patient encounter procedure Charlene Pedra[facility] Work Phone: Start: 06-10-2024 End: 06-10-2024 Charlene Pedraza [facility] Work Phone: Start: 06-10-2024 End: 06-10-2024 ambulatory Efewongbe Juliane Facility:[facility] Start: 06-07-2024 ambulatory Efewongbe Olejoanne OLS Fa cility:[facility] Start: 06-07-2024 Osmani Tucker Start: 06-04-2024 End: 06-04-2024 Tabby Palmer SUPERVISOR SPECIAL EDUCATION-C -Medical Out Work Phone: Start: 06-04-2024 End: 06-04-2024 ambulatory Tabby Palmer SUPERVISOR SPECIAL EDUCATION Facility:[facility] Start: 05-31-2024 ambulatory Osmani Morgan Facili ty:[facility] Start: 05-31-2024 Osmani Tucker Start: 05-26-2024 ambulatory Efkarime Morgan Facili ty:[facility] Start: 05-26-2024 Osmani Tucker Start: 05-25-2024 End: 05-25-2024 ambulatory Osmani Morgan Facility:[facility] Start: 05-25-2024 End: 05-25-2024 Dr. Osmani Morgan MD -[facility] Work Phone: Start: 05-25-2024 End: 05-25-2024 Tabby Palmer SUPERVISOR SPECIAL EDUCATION-C -Medical Out Work Phone: Start: 05-25-2024 End: 05-25-2024 ambulatory Tabby Palmer SUPERVISOR SPECIAL EDUCATION Facility:[facility] Start: 05-24-2024 End: 05-24-2024 ambulatory Osmani Morgan Facility:[facility] Start: 05-24-2024 End: 05-24-2024 Tabby Palmer SUPERVISOR SPECIAL EDUCATION-C -[facility] Work Phone: Start: 05-20-2024 End: 05-20-2024 ambulatory Osmani Jordane Facility:[facility] Start: 05-20-2024 End: 05-20-2024 Tabby Palmer SUPERVISOR SPECIAL EDUCATION-C -[facility] Work Phone: Start: 05-19-2024 Dr. Rafita Monzon MD -[facility] Work Phone: Start: 05-19-2024 [facility] Start: 05-18-2024 [facility] Work Phone: Start: 05-18-2024 [facility] Start: 05-18-2024 ambulatory Rafita Monzon Facility: [facility] Start: 05-18-2024 Dr. Sung Freeman MD -[facility] Start: 05-17-2024 [facility] Start: 05-17-2024 Dr. Kenneth Szymanski MD -[facility] Start: 05-16-2024 Dr. Rafita [facility] Work Phone: Start: 05-15-2024 ambulatory Lico Dang [facility] Start: 05-15-2024 Dr. Lico Dang MD [facility] Start: 05-15-2024 ambulatory [facility] Facility: [facility] Start: 05-15-2024 End: 05-19-2024 Evaluation and management of inpatient [facility] Facility:[facility] Start: 05-15-2024 End: 05-19-2024 Dr. Rafita Monzon MD -[facility] Work Phone: Start: 05-14-2024 ambulatory SHIRA ROY MD Facility:A Start: 05-06-2024 End: 05-06-2024 Kyle FERRARA -[facility] Work Phone: Start: 05-06-2024 End: 05-06-2024 [facility]ulatory [facility] Start: 04-22-2024 End: 04-22-2024 Emergency department patient visit [facility] Facility[facility] Start: 04-15-2024 End: 04-15-2024 ambulatory [facility] Start: 03-12-2024 Encounter for other preprocedural examination Sherita Rondon [facility] Start: 03-11-2024 End: 03-11-2024 ambulatory Efewongbe Oleghe Facility:[facility] Start: 02-20-2024 ambulatory Efewongbe Oleghe Facili ty:[facility] Start: 02-20-2024 End: 02-20-2024 ambulatory Efodiliaongbe Olejoanne Facility:[facility] Start: 02-13-2024 End: 02-13-2024 ambulatory Efewongbe Oleghe Facility:[facility] Start: 02-11-2024 End: 02-11-2024 ambulatory Efodiliaongbe Olejoanne Facility:[facility] Start: 02-02-2024 ambulatory Efewongbe Oleghe Facili ty:[facility] Start: 01-27-2024 ambulatory Efewoyster baybe Oleghe Facili ty:[facility] Start: 01-14-2024 End: 01-14-2024 ambulatory odiliaoyster bayconstantino Jordane Facility:[facility] Start: 01-14-2024 End: 01-26-2024 Evaluation and management of inpatient Allie Gilberto Facility:[facility] Start: 2023 End: 2023 ambulatory [facility] Olejoanne Facility:[facility] Start: 12-04-2023 ambulatory Efodiliaongbe Juliane Facili ty:[facility] Start: 11-07-2023 End: 11-07-2023 ambulatory Patrickongconstantino Jordane Facility:[facility] Start: 11-07-2023 End: 11-07-2023 ambulatory Efodiliaoyster baybe Olejoanne Facility:[facility] Start: 10-31-2023 End: 10-31-2023 ambulatory Dayanand Makey Facility:[facility] Start: 10-17-2023 End: 10-17-2023 ambulatory Efodiliaoyster baybe Olejoanne Facility:[facility] Start: 09-10-2023 End: 09-18-2023 Evaluation and management of inpatient NEPHROLOGY CONSULT Facility:[facility] Start: 09-10-2023 End: 09-18-2023 Evaluation and management of inpatient Ashley Stallings DO Work Phone: [id number] Start: 09-04-2023 Evaluation and management of inpatient Dr. Osmani Morgan Work Phone: [facility] Work Phone: Start: 09-04-2023 Dr. Osmani Morgan Work Phone: [facility]-Intensive Care Unit Work Phone: Start: 09-02-2023 Dr. Osmani Morgan Work Phone: [facility] Start: 09-01-2023 Dr. Osmani Morgan Work Phone: [facility] Start: 08-27-2023 Dr. Osmani Morgan Work Phone: [facility] Start: 08-25-2023 Dr. Osmani Morgan Work Phone: [facility] Start: 08-18-2023 Dr. Osmani Morgan Work Phone: [facility] Start: 08-05-2023 End: 08-15-2023 Evaluation and management of inpatient [facility] Facility:[id number] Start: 08-04-2023 End: 08-04-2023 Emergency department patient visit Dr. Osmani Morgan Work Phone: [facility]-Emergency Department Work Phone: Start: 08-04-[address] Yvette Morgan Work Phone: [facility] Start: 08-04-2023 End: 08-04-2023 Dr. Osmani Morgan Work Phone: [facility]-Emergency Department Work Phone: Start: 07-28-[address] Yvette Morgan Work Phone: [facility] Start: 07-28-2023 Dr. Osmani Morgan Work Phone: [facility] Start: 07-25-[address] Yvette Morgan Work Phone: [facility] Start: 07-25-2023 Dr. Osmani Morgan Work Phone: [facility] Start: 07-24-[address] Yvette Morgan Work Phone: [facility] Start: 07-24-2023 Dr. Osmani Morgan Work Phone: [facility] Start: 07-21-2023 Non-patient / Non-visit Dr. Osmani Morgan Work Phone: [facility] Work Phone: Start: 07-21-2023 Dr. Osmani Morgan Work Phone: [facility] Work Phone: Start: 07-20-2023 Non-patient / Non-visit Dr. Osmani Morgan Work Phone: [facility] Work Phone: Start: 07-20-2023 Dr. Osmani Morgan Work Phone: [facility] Work Phone: Start: 07-19-2023 Non-patient / Non-visit Dr. Osmani Morgan Work Phone: [facility] Work Phone: Start: 07-19-2023 Dr. Osmani Morgan Work Phone: [facility] Work Phone: Start: 07-18-2023 Non-patient / Non-visit Dr. Osmani Morgan Work Phone: [facility] Work Phone: Start: 07-18-2023 Dr. Osmain Morgan Work Phone: [facility] Work Phone: Start: 07-17-2023 Non-patient / Non-visit Dr. Osmani Morgan Work Phone: [facility] Work Phone: Start: 07-17-2023 Dr. Osmani Morgan Work Phone: [facility] Work Phone: Start: 07-17-2023 Non-patient / Non-visit Dr. Osmani Morgan Work Phone: [facility] Start: 07-17-2023 Dr. Osmani Morgan Work Phone: [facility] Start: 07-16-2023 Non-patient / Non-visit Dr. Osmani Morgan Work Phone: [facility] Start: 07-16-2023 Dr. Osmani Morgan Work Phone: [facility] Start: 07-16-2023 Non-patient / Non-visit Dr. Osmani Morgan Work Phone: [facility] Start: 07-16-2023 Dr. Osmani Morgan Work Phone: [facility] Start: 07-16-2023 End: 07-22-2023 Evaluation and management of inpatient Dr. Osmani Morgan Work Phone: [facility]-Intensive Care Unit Work Phone: Start: 07-16-2023 End: 07-22-2023 Dr. Osmani Morgan Work Phone: [facility]-Progressive Care Unit Work Phone: Start: 06-17-2023 End: 06-17-[address] Osmani Morgan Work Phone: [facility] Work Phone: Start: 06-17-2023 End: 06-17-[address] Osmani Morgan Work Phone: [facility]-Physical Therapy Work Phone: Start: 06-17-[address] Brenna Morgan Work Phone: [facility]-Physical Therapy Work Phone: Start: 06-17-2023 End: 06-17-2023 Dr. Osmani Morgan Work Phone: [facility]-Physical Therapy Work Phone: Start: 06-10-[address] Brenna Morgan Work Phone: [facility]-Physical Therapy Work Phone: Start: 06-05-2023 End: 06-05-[address] Osmani Morgan Work Phone: [facility] Work Phone: Start: 06-05-2023 End: 06-05-[address] Osmani Morgan Work Phone: [facility] Work Phone: Start: 06-05-2023 End: 06-05-2023 Dr. Osmani Morgan Work Phone: [facility] Work Phone: Start: 05-16-2023 End: 05-17-2023 ambulatory YOVANI PEOPLES Facility:[facility] Start: 05-13-2023 End: 05-13-2023 ambulatory SHIRA R ALEXAAR Facility:[facility] Start: 05-12-2023 End: 05-13-2023 ambulatory YOVANI ROGERSDonato Facility:[facility] Start: 05-05-2023 End: 05-06-2023 ambulatory SHIRA LIUAR Facility:[facility] Start: 05-05-2023 Encounter for other preprocedural examination YOVANI PEOPLES [facility] Start: 05-05-2023 End: 05-06-2023 ambulatory SHIRA ROY Facility:[facility] Start: 04-18-2023 End: 04-19-2023 ambulatory ABIEL SMITH Facility:[facility] Start: 04-17-2023 End: 04-17-2023 ambulatory ABIEL SMITH Facility:[facility] Start: 04-16-2023 Telephone encounter Abiel Smith MD Work Phone: Urology Start: 04-11-2023 End: 04-12-2023 ambulatory SHIRA ROY Facility:[facility] Start: 04-07-2023 Orders Only Mariana FERRARA Work Phone: Urology Comment on above: Malignant neoplasm o f urinary bladder, unspecified site (HCC) (Primary Dx); Malignant neoplasm of overlapping sites of bladder (HCC) Start: 04-03-2023 End: 04-04-2023 ambulatory YOVANI PEOPLES Facility:[facility] Start: 03-21-2023 Orders Only Abiel Smith MD Work Phone: Urology Comment on above: Gross hematuria (Natalia elliot Dx); Urothelial carcinoma of bladder (HCC) Start: 11-28-2022 End: 11-28-2022 ambulatory [place] [facility] Work Phone: Start: 11-28-2022 End: 11-28-2022 Patient encounter procedure [place] [facility] Work Phone: Start: 11-21-2022 End: 11-21-2022 Patient encounter procedure Out [facility] Work Phone: Start: 11-20-2022 End: 11-20-2022 ambulatory [place] [facility] Work Phone: Start: 11-20-2022 End: 11-20-2022 Patient encounter procedure Out [facility] Work Phone: Start: 11-20-2022 End: 11-20-2022 ambulatory [place] [facility] Work Phone: Start: 11-20-2022 End: 11-20-2022 Patient encounter procedure Out [facility] Work Phone: Start: 11-19-2022 End: 11-19-2022 Patient encounter procedure Out [facility] Work Phone: Start: 11-13-2022 End: 11-13-2022 ambulatory [place] [facility] [place] [facility] Work Phone: Start: 11-13-2022 End: 11-13-2022 Patient encounter procedure Out [facility] Work Phone: Start: 11-11-2022 End: 11-11-2022 ambulatory [place] [facility] [place] [facility] Work Phone: Start: 11-11-2022 End: 11-11-2022 Patient encounter procedure Out [facility] Work Phone: Start: 11-06-2022 End: 11-06-2022 ambulatory [place] [facility] Work Phone: Start: 11-06-2022 End: 11-06-2022 Patient encounter procedure [place] [facility] Work Phone: Start: 11-05-2022 End: 11-05-2022 ambulatory [place] [facility] [place] [facility] Work Phone: Start: 11-05-2022 End: 11-05-2022 Patient encounter procedure Out [facility] Work Phone: Start: 10-31-2022 End: 10-31-2022 Patient encounter procedure [place] [facility] Work Phone: Start: 10-30-2022 End: 10-30-2022 ambulatory [facility] Work Phone: Start: 10-30-2022 End: 10-30-2022 Patient encounter procedure Out [facility] Work Phone: Start: 10-23-2022 End: 10-23-2022 Patient encounter procedure Out [facility] Work Phone: Start: 10-17-2022 End: 10-17-2022 Patient encounter procedure Out [facility] Work Phone: Start: 10-16-2022 End: 10-16-2022 ambulatory [place] [facility] [place] [facility] Work Phone: Start: 10-16-2022 End: 10-16-2022 Patient encounter procedure Out [facility] Start: 10-10-2022 Non-patient / Non-visit Out [facility] Start: 10-10-2022 End: 10-10-2022 Admission to same day surgery center Out [facility] Start: 10-10-2022 End: 10-10-2022 ambulatory [place] [facility] [place] [facility] Work Phone: Start: 09-18-2022 End: 09-18-2022 Patient encounter procedure Out [facility] Start: 08-30-2022 End: 08-30-2022 Patient encounter procedure Out [facility] Start: 08-22-2022 Non-patient / Non-visit Out [facility] Start: 08-22-2022 End: 08-22-2022 Admission to same day surgery center Out [facility] Start: 08-21-2022 End: 08-21-2022 ambulatory Out of [facility] Work Phone: Start: 08-21-2022 End: 08-21-2022 Patient encounter procedure Out [facility] Start: 08-16-2022 End: 08-16-2022 Non-patient / Non-visit Out [facility] Start: 08-15-2022 Patient encounter status Out [facility] Start: 08-15-2022 End: 08-15-2022 Encounter for general adult medical examination without abnormal findings Out [facility] Start: 08-15-2022 End: 08-15-2022 Patient encounter procedure Out [facility] Start: 08-14-2022 End: 08-14-2022 ambulatory Out of [facility] Work Phone: Start: 08-14-2022 End: 08-14-2022 Patient encounter procedure Out [facility] Start: 08-07-2022 End: 08-07-2022 Patient encounter procedure Out [facility] Start: 08-01-2022 End: 08-01-2022 Patient encounter procedure Out [facility] Start: 07-31-2022 End: 07-31-2022 ambulatory Out of [facility] Work Phone: Start: 07-31-2022 End: 07-31-2022 Patient encounter procedure Out [facility] Start: 07-25-2022 End: 07-25-[address] Diana Titus Work Phone: [facility] Work Phone: Start: 07-25-2022 End: 07-25-[address] Diana Titus Work Phone: [facility] Start: 07-18-2022 Non-patient / Non-visit Dr. Diana Titus Work Phone: [facility] Start: 07-18-2022 End: 07-18-[address] Diana Titus Work Phone: [facility] Work Phone: Start: 07-18-2022 End: 07-18-[address] Diana Titus Work Phone: [facility] Start: 07-11-2022 End: 07-11-[address] Diana Titus Work Phone: [facility] Start: 07-04-2022 End: 07-04-2022 ambulatory [facility] Work Phone: Start: 07-04-2022 End: 07-04-2022 Patient encounter procedure [facility] Start: 06-27-2022 End: 06-27-2022 ambulatory [facility] Work Phone: Start: 06-27-2022 End: 06-27-2022 Patient encounter procedure [facility] Start: 06-13-2022 End: 06-13-2022 ambulatory [facility] Work Phone: Start: 06-13-2022 End: 06-13-2022 Patient encounter procedure [facility] Start: 05-23-2022 End: 05-24-2022 ambulatory LORRIE MCKNIGHT MD Facility:A Start: 05-23-2022 End: 05-23-2022 Patient encounter procedure LORRIE MCKNIGHT MD [facility] Start: 04-12-2022 ambulatory SHIRA ROY MD Facility:A Start: 03-20-2022 End: 05-16-2022 ambulatory SHIRA ROY MD Facility:R Start: 03-14-2022 End: 03-19-2022 Evaluation and management of inpatient LORRIE MCKNIGHT MD Facility:A Start: 03-14-2022 End: 03-19-2022 Evaluation and management of inpatient SHIRA ROY MD [facility] Start: 03-07-2022 End: 03-14-2022 Patient encounter procedure Yovani Peoples MD Work Phone: Urology Comment on above: Malignant neoplasm o f urinary bladder, unspecified site (HCC) (Primary Dx) Start: 01-24-2022 End: 01-25-2022 ambulatory LORRIE MCKNIGHT MD Facility:A Start: 01-24-2022 End: 01-24-2022 Patient encounter procedure LORRIE MCKNIGHT MD [facility] Start: 01-15-2022 End: 01-18-2022 Evaluation and management of inpatient LORRIE MCKNIGHT MD Facility:A Start: 01-15-2022 ambulatory SHIRA ROY MD Facility:A Start: 01-15-2022 End: 02-09-2023 Pre-admission assessment DR ALEXI TERRELL MD [facility] Start: 01-10-2022 End: 01-11-2022 ambulatory SHIRA ROY MD Facility:A Start: 01-10-2022 End: 01-10-2022 Patient encounter procedure LORRIE MCKNIGHT MD [facility] Start: 01-03-2022 End: 01-04-2022 ambulatory SHIRA ROY MD Facility:A Start: 01-03-2022 End: 01-03-2022 Patient encounter procedure LORRIE MCKNIGHT MD [facility] Start: 12-28-2021 ambulatory LORRIE MCKNIGHT MD Facili ty:A Start: 12-27-2021 End: 12-28-2021 ambulatory SHIRA ROY MD Facility:A Start: 12-27-2021 End: 12-27-2021 Patient encounter procedure LORRIE MCKNIGHT MD [facility] Start: 12-08-2021 End: 12-13-2021 ambulatory SHIRA ROY MD Facility:A Start: 11-30-2021 End: 12-01-2021 ambulatory SHIRA ROY MD Facility:A Start: 11-30-2021 End: 11-30-2021 Patient encounter procedure LORRIE MCKNIGHT MD [facility] Start: 11-29-2021 ambulatory Obi Mcdonnell MD Work Phone: Urology Comment on above: Pathology Results. Start: 11-29-2021 E-mail encounter regulo rapp caregiver Obi Mcdonnell MD Work Phone: [facility] Start: 11-29-2021 Telephone encounter Obi gregg MD Work Phone: Urology Comment on above: Results Start: 11-23-2021 End: 11-23-2021 Admission to [facility] Pacc Main 5 Work Phone: [facility] Start: 11-23-2021 End: 11-23-2021 ambulatory Pac Main 5 Work Phone: Pre Anesthesia Comment on above: Pre-op evaluation (P rimary Dx); Neoplasm of bladder; Primary hypertension; Gastroesophageal reflux disease, unspecified whether esophagitis present; Stage 3b chronic kidney disease (HCC); Type 2 diabetes mellitus with other specified complication, with long-term current use of insulin (HCC); Acute on chronic diastolic congestive heart failure (HCC); Anemia, unspecified type Start: 11-23-2021 End: 11-23-2021 Preprocedural examination done Pacc Main 5 Work Phone: Pre Anesthesia Start: 11-23-2021 Telephone encounter Matt gaffney APRN.CNP Work Phone: Pre Anesthesia Comment on above: Results ( LAB result ); Patient Update (Patient obtained cardiac clearance) Start: 11-19-2021 End: 11-20-2021 ambulatory SHIRA ROY MD Facility:A Start: 11-19-2021 End: 11-19-2021 Patient encounter procedure LORRIE MCKNIGHT MD [facility] Start: 11-09-2021 End: 11-10-2021 ambulatory SHIRA ROY MD Facility:A Start: 11-09-2021 End: 11-09-2021 Patient encounter procedure LORRIE MCKNIGHT MD [facility] Start: 11-08-2021 Telephone encounter Obi gregg MD Work Phone: Urology Comment on above: Patient Question Start: 11-06-2021 Orders Only Efrain rosenthal MD Work Phone: Preventive Cardiology Comment on above: Hypertension, unspec ified type (Primary Dx) Start: 11-05-2021 ambulatory Charlene Marinelli Work Phone: Urology Start: 11-02-2021 End: 11-03-2021 ambulatory SHIRA ROY MD Facility:A Start: 11-02-2021 End: 11-02-2021 Patient encounter procedure LORRIE MCKNIGHT MD [facility] Start: 11-01-2021 End: 11-01-2021 Patient encounter procedure Yovani Peoples MD Work Phone: Urology Comment on above: Asymptomatic microsc opic hematuria (Primary Dx) Start: 11-01-2021 End: 11-01-2021 Subsequent hospital visit by physician Mri 6 Radio Main Q (I-Stat/1.5t/3t) Work Phone: MRI Q Comment on above: Malignant tumor of r enal pelvis, 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] Start: 10-26-2021 End: 10-27-2021 ambulatory SHIRA ROY MD Facility:A Start: 10-26-2021 End: 10-26-2021 Patient encounter procedure LORRIE MCKNIGHT MD [facility] Start: 10-08-2021 End: 10-13-2021 ambulatory LORRIE MCKNIGHT MD Facility:A Start: 09-03-2021 End: 09-04-2021 ambulatory LORRIE MCKNIGHT MD Facility:A Start: 09-03-2021 End: 09-03-2021 Patient encounter procedure LORRIE MCKNIGHT MD [facility] Start: 08-29-2021 End: 08-30-2021 ambulatory LORRIE MCKNIGHT MD Facility:A Start: 08-29-2021 End: 08-29-2021 Patient encounter procedure LORRIE MCKNIGHT MD [facility] Start: 08-27-2021 End: 08-28-2021 ambulatory LORRIE MCKNIGHT MD Facility:A Start: 08-27-2021 End: 08-27-2021 Patient encounter procedure LORRIE MCKNIGHT MD [facility] Start: 08-22-2021 End: 08-23-2021 ambulatory LORRIE MCKNIGHT MD Facility:A Start: 08-22-2021 End: 08-22-2021 Patient encounter procedure LORRIE MCKNIGHT MD [facility] Start: 08-15-2021 End: 08-16-2021 ambulatory SHIRA ROY MD Facility:A Start: 08-15-2021 End: 08-15-2021 Patient encounter procedure LORRIE MCKNIGHT MD [facility] Start: 08-08-2021 End: 08-09-2021 ambulatory SHIRA ROY MD Facility:A Start: 08-08-2021 End: 08-08-2021 Patient encounter procedure LORRIE MCKNIGHT MD [facility] Start: 08-01-2021 End: 08-02-2021 ambulatory SHIRA ROY MD Facility:A Start: 08-01-2021 End: 08-01-2021 Patient encounter procedure LORRIE MCKNIGHT MD [facility] Start: 07-31-2021 End: 07-31-2021 Subsequent hospital visit by physician Sergio Ramos MD Work Phone: [facility] Comment on above: N39.0 Start: 07-25-2021 End: 07-26-2021 ambulatory SHIRA ROY MD Facility:A Start: 07-18-2021 End: 07-19-2021 ambulatory SHIRA ROY MD Facility:A Start: 07-18-2021 End: 07-18-2021 Patient encounter procedure LORRIE MCKNIGHT MD [facility] Start: 07-13-2021 End: 07-14-2021 ambulatory LORRIE MCKNIGHT MD Facility:A Start: 07-13-2021 End: 07-13-2021 Patient encounter procedure LORRIE MCKNIGHT MD [facility] Start: 07-12-2021 End: 07-17-2021 Patient encounter procedure Yovani Peoples MD Work Phone: Urology Comment on above: Elevated serum creat inine (Primary Dx); 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) Start: 07-04-2021 End: 07-05-2021 ambulatory LORRIE MCKNIGHT MD Facility:A Start: 07-04-2021 End: 07-04-2021 Patient encounter procedure LORRIE MCKNIGHT MD [facility] Start: 06-28-2021 End: 07-03-2021 ambulatory SHIRA ROY MD Facility:A Start: 06-18-2021 End: 06-23-2021 ambulatory YOVANI PEOPLES MD Facility:A Start: 05-11-2021 End: 05-11-2021 Patient encounter procedure LORRIE MCKNIGHT MD [facility] Start: 05-09-2021 End: 05-09-2021 Patient encounter procedure LORRIE MCKNIGHT MD [facility] Start: 05-07-2021 End: 05-07-2021 Patient encounter procedure LORRIE MCKNIGHT MD [facility] Start: 03-06-2021 End: 03-06-2021 Patient encounter procedure KYLER PEÑA MD [facility] Procedures Date Procedure Procedure Detail Performing Clinician Start: 06-21-2024 Measurement of renal function Dr. Yvette Morgan MD Work Phone: Comment on above: GFR Calc Start: 06-14-2024 Measurement of renal function Dr. Yvette Morgan MD Work Phone: Comment on above: GFR Calc Start: 06-11-[address] Patrick Morgan MD Work Phone: Start: 06-11-[address] Osmani Morgan MD Work Phone: Start: 06-11-2024 Iadna-dna/rna gi pthgn multiplex probe tq 6-11 Dr. Osmani Morgan MD Work Phone: Start: 05-18-[address] Osmani Morgan MD Work Phone: Start: 05-16-[address] Osmani Morgan MD Work Phone: Start: 05-15-2024 Measurement of occult blood in stool specimen using immunoassay Dr. Osmani Moragn MD Work Phone: Start: 05-15-[address] Osmani Morgan MD Work Phone: Start: 05-15-2024 Plain chest X-ray Dr. Osmani Morgan MD Work Phone: Start: 05-14-2024 CT angiography of chest with contrast Dr. Osmani Morgan MD Work Phone: Start: 05-14-2024 X-ray of chest, PA and lateral views Dr. Osmani Morgan MD Work Phone: Start: 05-14-[address] Osmani Morgan MD Work Phone: Start: 05-14-2024 Dr. Osmani Morgan MD Work Phone: Start: 09-18-2023 Glucose measurement, blood Marvin woody MD Work Phone: Start: 09-18-2023 Glucose measurement, blood Marvin woody MD Work Phone: Start: 09-18-2023 Glucose measurement, blood Marvin woody MD Work Phone: Start: 09-18-2023 Assay of magnesium Dwight Tobin MD Work Phone: Start: 09-18-2023 Glucose measurement, blood Barrera pedroza MD Work Phone: Start: 09-17-2023 Glucose measurement, blood Barrera pedroza MD Work Phone: Start: 09-17-2023 Glucose measurement, blood Barrera pedroza MD Work Phone: Start: 09-17-2023 Glucose measurement, blood Barrera pedroza MD Work Phone: Start: 09-17-2023 Assay of magnesium Dwight Tobin MD Work Phone: Start: 09-16-2023 Glucose measurement, blood Barrera S Jourdan pedroza MD Work Phone: Start: 09-16-2023 Glucose measurement, blood Barrera S halfway yovany GAVIRIA Work Phone: Start: 09-16-2023 Glucose measurement, blood Barrera S halfway yovany GAVIRIA Work Phone: Start: 09-16-2023 End: 09-16-2023 Glucose measurement, blood Barrera S Jourdan pedroza MD Work Phone: Start: 09-16-2023 Estrellita Rausch MD Work Phone: Start: 09-16-2023 Glucose measurement, blood Barrera S Jourdan pedroza MD Work Phone: Start: 09-16-2023 End: 09-16-2023 Glucose measurement, blood Barrera S Jourdan pedroza MD Work Phone: Start: 09-16-2023 Glucose measurement, blood Barrera S Jourdan pedroza MD Work Phone: Start: 09-16-2023 Glucose measurement, blood Barrera S Jourdan pedroza MD Work Phone: Start: 09-16-2023 Assay of magnesium Dwight Tobin MD Work Phone: Start: 09-15-2023 Glucose measurement, blood Barrera S Jourdan pedroza MD Work Phone: Start: 09-15-2023 Glucose measurement, blood Barrera S halfway yovany GAVIRIA Work Phone: Start: 09-15-2023 Glucose measurement, blood Barrera S Jourdan pedroza MD Work Phone: Start: 09-15-2023 Glucose measurement, blood Barrera S halfway yovany GAVIRIA Work Phone: Start: 09-15-2023 Glucose measurement, blood Barrera S halfway yovany GAVIRIA Work Phone: Start: 09-15-2023 UPPER EUS Desiree Ga MD Work Phone: Start: 09-15-2023 Cytp eval fine needle aspirate interp & report Raya Veloz DO Work Phone: Start: 09-15-2023 Glucose measurement, blood Barrera pedroza MD Work Phone: Start: 09-15-2023 Glucose measurement, blood Barrera pedroza MD Work Phone: Start: 09-15-2023 Assay of magnesium Dwight Tobin MD Work Phone: Start: 09-14-2023 Glucose measurement, blood Barrera pedroza MD Work Phone: Start: 09-14-2023 Glucose measurement, blood Barrera pedroza MD Work Phone: Start: 09-14-2023 Glucose measurement, blood Barrera pedroza MD Work Phone: Start: 09-14-2023 Glucose measurement, blood Barrera pedroza MD Work Phone: Start: 09-14-2023 End: 09-14-2023 Antibody screen Ashley Stallings DO Work Phone: Comment on above: Performed By: #### XM #### [facility] ([facility]) [address] [place] [id number] Start: 09-14-2023 Blood typing serologic abo Dwight washburn MD Work Phone: Start: 09-14-2023 Glucose measurement, blood Barrera pedroza MD Work Phone: Start: 09-14-2023 Assay of lipase Barrera Kirkland MD Work Phone: Start: 09-14-2023 Hemodialysis Anastacio Rausch MD Work Phone: Start: 09-13-2023 Glucose measurement, blood Barrera pedroza MD Work Phone: Start: 09-13-2023 Glucose measurement, blood Barrera pedroza MD Work Phone: Start: 09-13-2023 Radiologic exam chest single view Marah Kirkland MD Work Phone: Start: 09-13-2023 Glucose measurement, blood Barrera pedroza MD Work Phone: Start: 09-13-2023 Glucose measurement, blood Barrera pedroza MD Work Phone: Start: 09-13-2023 Assay of magnesium Dwight Tobin MD Work Phone: Start: 09-13-2023 Glucose measurement, blood Barrera pedroza MD Work Phone: Start: 09-12-2023 Glucose measurement, blood Barrera pedroza MD Work Phone: Start: 09-12-2023 Glucose measurement, blood Barrera pedroza MD Work Phone: Start: 09-12-2023 Glucose measurement, blood Barrera pedroza MD Work Phone: Start: 09-12-2023 Glucose measurement, blood Barrera pedroza MD Work Phone: Start: 09-12-2023 CHRONIC HEPATITIS PANEL(DIALYSIS, ESRD, RUIZ) Anastacio Rausch MD Work Phone: Start: 09-12-2023 Hepatitis b surf antibody hbsab Anastacio andrews MD Work Phone: Start: 09-12-2023 Iaad ia hepatitis b surface antigen Anastacio Rausch MD Work Phone: Start: 09-12-2023 Glucose measurement, blood Barrera pedroza MD Work Phone: Start: 09-12-2023 Mri brain brain stem w/o w/contrast material Vianney Schafer MD Work Phone: Start: 09-12-2023 Assay of ferritin Barrera Kirkland MD Work Phone: Start: 09-11-2023 Glucose measurement, blood Barrera pedroza MD Work Phone: Start: 09-11-2023 Glucose measurement, blood Barrera pedroza MD Work Phone: Start: 09-11-2023 GENERAL PROCEDURE Delbert Gtz PAC Work Phone: Start: 09-11-2023 Cell count misc body fluids w/differential count Vianney Schafer MD Work Phone: Start: 09-11-2023 Concentration infectious agents Barrera Kirkland MD Work Phone: Start: 09-11-2023 Cytp concentration smears & interpretation Vianney Schafer MD Work Phone: Start: 09-11-2023 EXTRA STERILE Barrera Kirkland MD Work Phone: Start: 09-11-2023 EXTRA TUBES Barrera Kirkland MD Work Phone: Start: 09-11-2023 Glucose body fluid other than blood Vianney Schafer MD Work Phone: Start: 09-11-2023 Hemodialysis Anastacio Rausch MD Work Phone: Start: 09-11-2023 Prothrombin time Barrera Kirkland MD Work Phone: Start: 09-11-2023 Glucose measurement, blood Barrera pedroza MD Work Phone: Start: 09-11-2023 End: 09-11-2023 Microsomal antibodies each Vianney martinez MD Work Phone: Start: 09-11-2023 Myeloperoxidase mpo Vianney Schafer MD Work Phone: Start: 09-11-2023 Glucose measurement, blood Barrera pedroza MD Work Phone: Start: 09-11-2023 End: 09-11-2023 Antibody screen Ashley Chandrakant THOMPSON Work Phone: Comment on above: Performed By: #### XM #### [facility] ([facility]) [address] [place] [id number] Start: 09-11-2023 ABORH TYPE RECONFIRMATION Delvin San MD Work Phone: Start: 09-11-2023 Bilirubin direct Barrera Kirkland MD Work Phone: Start: 09-11-2023 Blood typing serologic abo Dwight washburn MD Work Phone: Start: 09-10-2023 Glucose measurement, blood Dwight washburn MD Work Phone: Start: 09-04-2023 Plain chest X-ray Dr. Osmani Morgan Work Phone: Start: 09-04-2023 CT of abdomen and pelvis without contrast Dr. Osmani Morgan Work Phone: Start: 08-04-[address] Osmani Morgan Work Phone: Start: 08-04-2023 Plain chest X-ray Dr. Osmani Morgan Work Phone: Start: 08-04-2023 CT cervical spine without contrast Dr. Thompson Morgan Work Phone: Start: 08-04-2023 CT of head without contrast Dr. Ambrocio Morgan Work Phone: Start: 07-21-2023 MRI of brain without contrast Dr. Yvette Morgan Work Phone: Start: 07-16-2023 SARS-CoV-2, Influenza & RSV (PCR) Dr. Fatoumata Morgan Work Phone: Start: 07-16-[address] Osmani Morgan Work Phone: Start: 07-16-2023 Dr. Osmani Morgan Work Phone: Start: 07-15-2023 Plain chest X-ray Dr. Osmani Morgan Work Phone: Start: 07-15-2023 CT of head without contrast Dr. Ambrocio Morgan Work Phone: Start: 07-15-2023 Bacteria identified in Blood by Culture Dr. Osmani Morgan Work Phone: Start: 07-15-2023 Dr. Osmani Morgan Work Phone: Start: 04-18-2023 Antibody screen YOVANI PEOPLES Comment on above: Order Comment: Specimen Type: BLOOD SPEC IMENOrdering Facility: [facility] Address: [address] [place] [address] Performed By: #### T [id number] ####[facility] BLOOD BANKCLIA [id number] [facility] [id number] [place] [address] OF [place] Start: 11-20-2022 Plain chest X-ray [facility] Start: 10-10-2022 Creation of lower limb arteriovenous fistula [facility] Start: 08-22-2022 Creation of lower limb arteriovenous fistula [facility] Start: 03-07-2022 Cytp slctv cell enhancement interpj xcpt c/v Yovnai Peoples MD Work Phone: Start: 03-07-2022 Urnls dip stick/tablet rgnt auto w/o microscopy Yovani Peoples MD Work Phone: Start: 11-01-2021 Urnls dip stick/tablet rgnt auto w/o microscopy Yovani Peoples MD Work Phone: Start: 11-01-2021 Mri abdomen w/o & w/contrast material Yee Alston APRN.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 Work Phone: Start: 07-12-2021 Cytp slctv cell enhancement interpj xcpt c/v Yovani Peoples MD Work Phone: Start: 07-12-2021 Urnls dip stick/tablet rgnt auto w/o microscopy Yovani Poeples MD Work Phone: Start: 10-06-2020 Ecg routine ecg w/least 12 lds i&r only Start: 09-05-2020 Antibody screen Extraction of cataract RONNA PEÑA MD Comment on above: Right eye 2008, Left eye 2011 Hysterectomy KYLER Lira Comment on above: 1974 Laparoscopic total e xcision of right kidney LORRIE MCKNIGHT MD Laser device (physical object) KYLER PEÑA MD Comment on above: Laser Rx for Glaucoma right eye 2007 Open reduction KYLER PEÑA MD Comment on above: internal fixation of fracture left dista l radius 2019 Total knee replacement RONNA PEÑA MD Comment on above: 2006, left Urinary bladder stru cture (body structure) KYLER PEÑA MD Comment on above: Bladder suspension 1979 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 Plan of Treatment Date Care Activity Detail Author Start: 12-27-2024 Influenza vaccination Influenza Vaccine (Season Ended) [facility] Start: 09-28-2024 End: 09-28-2024 Patient encounter procedure 09/28/2024 3:30 PM EDT Office Visit [facility] Rheumatology [facility] [address] [place] [id number] Simone Calvin MD [address] [place] [address] [facility] [place] Start: 09-10-2024 Thyroid stimulating hormone measurement [facility] Start: 06-30-2024 Administration of blood product [facility] Start: 06-30-2024 [facility] Start: 06-16-2024 Administration of blood product [facility] Start: 06-16-2024 [facility] Start: 06-04-2024 Administration of blood product [facility] Start: 06-04-2024 [facility] Start: 05-25-2024 Administration of blood product [facility] Start: 05-25-2024 [facility] Start: 05-19-2024 Patient discharge [facility] Start: 05-19-2024 Care of hemodialysis equipment [facility] Start: 05-19-2024 Hemodialysis care [facility] Start: 05-19-2024 [facility] Start: 05-17-2024 Referral to gastroenterology service [facility] Start: 05-17-2024 Care planning and problem solving actions [facility] Start: 05-17-2024 Referral to mission assessment specialist [facility] Start: 05-17-2024 Administration of blood product [facility] Start: 05-17-2024 Care of hemodialysis equipment [facility] Start: 05-17-2024 Hemodialysis care [facility] Start: 05-17-2024 [facility] Start: 05-16-2024 Oxygen therapy [facility] Start: 05-15-2024 Administration of blood product [facility] Start: 05-15-2024 Referral to occupational therapist [facility] Start: 05-15-2024 Referral to service [facility] Start: 05-15-2024 Application of intermittent pneumatic compression device [facility] Start: 05-15-2024 Referral to cutting machine offbearer [facility] Start: 05-15-2024 Following clinical pathway protocol [facility] Start: 05-15-2024 Admission procedure [facility] Start: 05-15-2024 Patient referral to dietitian [facility] Start: 05-06-2024 Patient referral [facility] Work Phone: Start: 12-28-2023 COVID-19 Vaccine ( season) COVID-19 Vaccine ( season) [facility] Start: 12-28-2023 COVID-19 Vaccine ( season) COVID-19 Vaccine ( season) [facility] Start: 12-28-2023 Influenza vaccination [facility] Start: 10-23-2023 End: 10-23-2023 ambulatory Gastroenterology and Hepatology [facility] Start: 09-04-2023 Verification routine [facility] Start: 09-04-2023 Admission procedure [facility] Start: 09-04-2023 Hospital admission, emergency, from emergency room, medical nature [facility] Start: 09-04-2023 [facility] Start: 08-04-2023 [facility] Start: 08-04-2023 Bacteria identified in Urine by Culture [facility] Start: 08-04-2023 [facility] Start: 08-04-2023 [facility] Start: 07-25-2023 Blood chemistry [facility] Start: 07-24-2023 Blood chemistry [facility] Start: 07-23-2023 Blood chemistry [facility] Start: 07-22-2023 Patient discharge [facility] Start: 07-21-2023 Vital signs measurements [facility] Start: 07-21-2023 Cardiac monitoring [facility] Start: 07-21-2023 Catheterization of vein [facility] Start: 07-21-2023 Continuous pulse oximetry [facility] Start: 07-21-2023 Elevation of head of bed [facility] Start: 07-21-2023 Exercises [facility] Start: 07-21-2023 Implementation of planned interventions [facility] Start: 07-21-2023 Notification of physician [facility] Start: 07-21-2023 Oxygen therapy [facility] Start: 07-21-2023 Telemedicine consultation with patient [facility] Start: 07-21-2023 Tobacco use cessation education [facility] Start: 07-21-2023 [facility] Start: 07-21-2023 Hemodialysis care [facility] Start: 07-21-2023 End: 07-21-2023 [facility] Start: 07-20-2023 Care planning and problem solving actions [facility] Start: 07-19-2023 Care planning and problem solving actions [facility] Start: 07-19-2023 [facility] Start: 07-18-2023 End: 07-18-2023 [facility] Start: 07-18-2023 Hemodialysis care [facility] Start: 07-18-2023 Inhalation therapy procedure [facility] Start: 07-17-2023 Care planning and problem solving actions [facility] Start: 07-16-2023 Bacteria identified in Urine by Culture Urine Culture [facility] Start: 07-16-2023 End: 07-16-2023 [facility] Start: 07-16-2023 Hemodialysis care [facility] Start: 07-16-2023 [facility] Start: 07-16-2023 Following clinical pathway protocol [facility] Start: 07-16-2023 Assessment of risk of venous thromboembolism [facility] [facility] Start: 07-16-2023 Care regimes management [facility] Start: 07-16-2023 Consultation [facility] Start: 07-16-2023 Continuous pulse oximetry [facility] Start: 07-16-2023 Elevation of head of bed [facility] Start: 07-16-2023 Fall prevention [facility] Start: 07-16-2023 Incentive spirometry [facility] Start: 07-16-2023 Insertion of catheter into peripheral vein [facility] Start: 07-16-2023 Introduction of urinary catheter [facility] Start: 07-16-2023 Measuring intake and output [facility] Start: 07-16-2023 Notification of physician [facility] Start: 07-16-2023 Oxygen therapy [facility] Start: 07-16-2023 Providing care according to standard [facility] Start: 07-16-2023 Provision of activity privileges [facility] Start: 07-16-2023 Referral to cutting machine offbearer [facility] Start: 07-16-2023 Referral to occupational therapist [facility] Start: 07-16-2023 Referral to service [facility] Start: 07-16-2023 Vital signs measurements [facility] Start: 07-16-2023 End: 07-16-2023 [facility] Start: 07-16-2023 Verification routine [facility] Start: 07-16-2023 Admission procedure [facility] Start: 07-15-2023 End: 07-16-2023 [facility] Start: 07-15-2023 End: 07-15-2023 Blood culture [facility] Start: 07-15-2023 Bacteria identified in Blood by Culture Blood Culture [facility] Start: 06-05-2023 Patient referral [facility] Work Phone: Start: 04-07-2023 End: 07-07-2023 CREATININE BLD CREATININE BLD Lab Routine Malignant neoplasm of urinary bladder, unspecified site (HCC) Expected: 04/07/2023, Expires: 07/07/2023 [facility] Work Phone: Comment on above: Expected: 04/07/2023, Expires: Start: 12-27-2022 Covid-19 Vaccine () Covid-19 Vaccine () [facility] Start: 12-27-2022 Influenza vaccination Influenza Vaccine (#1) [facility] Start: 12-27-2022 [facility] Start: 11-20-2022 Iv infusion therapy prophylaxis/dx ea hour THER/PROPH/DIAG IV INF [facility] Start: 11-20-2022 Iv infusion therapy/prophylaxis /dx 1st to 1 hr THER/PROPH/DIAG IV INF [facility] Start: 10-10-2022 Patient discharge [facility] Start: 10-10-2022 Anesthesia vascular shunt/shunt revision ANESTH VASCULAR SHUNT [facility] Start: 10-10-2022 Arven anast opn upr arm basilic vein trpos AV FUSE [facility] Start: 08-22-2022 Anesthesia vascular shunt/shunt revision ANESTH VASCULAR SHUNT [facility] Start: 08-22-2022 Arven anast opn upr arm basilic vein trpos AV FUSE [facility]PR [facility] Start: 08-22-2022 Patient discharge [facility] Start: 08-21-2022 Iv infusion therapy/prophylaxis /dx 1st to 1 hr THER/PROPH/DIAG IV INF [facility] Start: 08-14-2022 Iv infusion therapy/prophylaxis /dx 1st to 1 hr THER/PROPH/DIAG IV INF [facility] Start: 04-28-2022 Advance Directive Discussion Advance Directive Discussion [facility] Start: 04-28-2022 Depression Assessment Depression Assessment [facility] Start: 01-06-2022 Hepatitis B surface antibody level LDL CHOLESTEROL [facility] Start: 12-27-2021 Influenza vaccination INFLUENZA (#1) [facility] Start: 12-06-2021 End: 11-05-2022 aPTT in Platelet poor plasma by Coagulation assay ACTIVATED PTT Lab Routine Neoplasm of bladder Malignant neoplasm of urinary bladder, unspecified site (HCC) 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) Stage 3b chronic kidney disease (HCC) Microscopic hematuria Expected: 12/06/2021 (Approximate), Expires: 11/05/2022 [facility] Work Phone: Comment on above: Expected: 12/06/2021 (Approximate), Expi res: 11/05/2022 Start: 12-06-2021 End: 02-05-2022 Bacteria identified in Urine by Culture URINE CULTURE Microbiology Routine Neoplasm of bladder Malignant neoplasm of urinary bladder, unspecified site (HCC) 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) Stage 3b chronic kidney disease (HCC) Microscopic hematuria Expected: 12/06/2021 (Approximate), Expires: 02/05/2022 [facility] Work Phone: Comment on above: Expected: 12/06/2021 (Approximate), Expi res: 02/05/2022 Start: 12-06-2021 End: 11-05-2022 CBC panel - Blood by Automated count CBC Lab Routine Neoplasm of bladder Malignant neoplasm of urinary bladder, unspecified site (HCC) 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) Stage 3b chronic kidney disease (HCC) Microscopic hematuria Expected: 12/06/2021 (Approximate), Expires: 11/05/2022 [facility] Work Phone: Comment on above: Expected: 12/06/2021 (Approximate), Expi res: 11/05/2022 Start: 12-06-2021 End: 11-05-2022 Comprehensive metabolic 2000 panel - Serum or Plasma COMP METABOLIC PANEL Lab Routine Neoplasm of bladder Malignant neoplasm of urinary bladder, unspecified site (HCC) 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) Stage 3b chronic kidney disease (HCC) Microscopic hematuria Expected: 12/06/2021 (Approximate), Expires: 11/05/2022 [facility] Work Phone: Comment on above: Expected: 12/06/2021 (Approximate), Expi res: 11/05/2022 Start: 12-06-2021 End: 11-05-2022 CONFIRM BLOOD TYPE CONFIRM BLOOD TYPE Blood Bank Routine Neoplasm of bladder Malignant neoplasm of urinary bladder, unspecified site (HCC) 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) Stage 3b chronic kidney disease (HCC) Microscopic hematuria Expected: 12/06/2021 (Approximate), Expires: 11/05/2022 [facility] Work Phone: Comment on above: Expected: 12/06/2021 (Approximate), Expi res: 11/05/2022 Start: 12-06-2021 End: 11-05-2022 PT panel - Platelet poor plasma by Coagulation assay PROTHROMBIN TIME/PT Lab Routine Neoplasm of bladder Malignant neoplasm of urinary bladder, unspecified site (HCC) 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) Stage 3b chronic kidney disease (HCC) Microscopic hematuria Expected: 12/06/2021 (Approximate), Expires: 11/05/2022 [facility] Work Phone: Comment on above: Expected: 12/06/2021 (Approximate), Expi res: 11/05/2022 Start: 12-06-2021 End: 11-05-2022 TYPE AND SCREEN,30 DAY TYPE AND SCREEN,30 DAY Blood Bank Routine Neoplasm of bladder Malignant neoplasm of urinary bladder, unspecified site (HCC) 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) Stage 3b chronic kidney disease (HCC) Microscopic hematuria Expected: 12/06/2021 (Approximate), Expires: 11/05/2022 [facility] Work Phone: Comment on above: Expected: 12/06/2021 (Approximate), Expi res: 11/05/2022 Start: 12-06-2021 End: 11-05-2022 Urinalysis complete panel - Urine URINALYSIS, WITH MICROSCOPIC Lab Routine Neoplasm of bladder Malignant neoplasm of urinary bladder, unspecified site (HCC) 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) Stage 3b chronic kidney disease (HCC) Microscopic hematuria Expected: 12/06/2021 (Approximate), Expires: 11/05/2022 [facility] Work Phone: Comment on above: Expected: 12/06/2021 (Approximate), Expi res: 11/05/2022 Start: 11-05-2021 End: 01-05-2022 CREATININE BLD CREATININE BLD Lab Routine Neoplasm of bladder Malignant neoplasm of urinary bladder, unspecified site (HCC) 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) Stage 3b chronic kidney disease (HCC) Microscopic hematuria Expected: 11/05/2021, Expires: 01/05/2022 [facility] Work Phone: Comment on above: Expected: 11/05/2021, Expires: 2 Start: 11-05-2021 End: 03-08-2022 SARS-CoV-2 (COVID-19) RNA [Presence] in Respiratory specimen by ALBIN with probe detection INTERMEDIATE RAPID COVID Microbiology Routine Neoplasm of bladder Malignant neoplasm of urinary bladder, unspecified site (HCC) 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) Stage 3b chronic kidney disease (HCC) Microscopic hematuria Expected: 11/05/2021, Expires: 03/08/2022 [facility] Work Phone: Comment on above: Expected: 11/05/2021, Expires: 2 Start: 10-19-2021 COVID-19 VACCINE (5 - Booster for Moderna series) COVID-19 VACCINE (5 - Booster for Moderna series) [facility] Start: 04-28-2021 ADVANCE DIRECTIVE DISCUSSION ADVANCE DIRECTIVE DISCUSSION [facility] Start: 04-28-2021 DEPRESSION ASSESSMENT DEPRESSION ASSESSMENT [facility] Start: 04-26-2021 Hemoglobin A1c measurement HbA1C [facility] Start: 04-26-2021 Hemoglobin A1c/Hemoglobin.total in Blood HBA1C [facility] Start: 01-13-2020 Screening for osteoporosis [facility] Start: 12-11-2014 RSV Immunization for Adults (1 - 1-dose 75+ series) RSV Immunization for Adults (1 - 1-dose 75+ series) [facility] [employer] Start: 12-11-2004 BONE DENSITY BONE DENSITY [facility] Start: 12-11-2004 Pneumococcal vaccination [facility] Start: 12-11-2004 PNEUMOVAX AGE 65 AND OVER WITH 5YR LOOKBACK (#1) PNEUMOVAX AGE 65 AND OVER WITH 5YR LOOKBACK (#1) [facility] Start: 1999 Hepatitis B Vaccine (1 of 3 - Risk 3-dose series) Hepatitis B Vaccine (1 of 3 - Risk 3-dose series) [facility] Start: 1999 RSV Vaccine (1 - 1-dose 60+ series) RSV Vaccine (1 - 1-dose 60+ series) [facility] Start: 12-11-1989 Pneumococcal Vaccine: 50+ Years (1 of 1 - PCV) Pneumococcal Vaccine: 50+ Years (1 of 1 - PCV) [facility] Start: 12-11-1989 SHINGRIX VACCINE (1 of 2) SHINGRIX VACCINE (1 of 2) [facility] Start: 12-11-1989 Zoster Vaccines (1 of 2) Zoster Vaccines (1 of 2) [facility] Start: 12-11-1989 [facility] Start: 12-11-1984 Screening for malignant neoplasm of colon [facility] Start: 1979 Screening for malignant neoplasm of breast [facility] Start: 12-11-1960 Screening for malignant neoplasm of cervix [facility] Start: 12-11-1958 DTaP/Tdap/Td Vaccines (1 - Tdap) DTaP/Tdap/Td Vaccines (1 - Tdap) [facility] Start: 12-11-1958 Pneumococcal Vaccine: 50+ Years (1 of 2 - PCV) Pneumococcal Vaccine: 50+ Years (1 of 2 - PCV) [facility] Start: 12-11-1958 Third diphtheria, tetanus and acellular pertussis (DTaP) vaccination [facility] Start: 12-11-1958 Urine microalbumin profile [facility] Start: 12-11-1958 Zoster Vaccines (1 of 2) Zoster Vaccines (1 of 2) [facility] Start: 12-11-1957 Hepatitis B surface antibody level LDL CHOLESTEROL [facility] Start: 1951 Depression Screening Depression Screening [facility] Start: 12-11-1949 3 comp foot exam completed DIABETIC FOOT EXAM [facility] Start: 12-11-1949 Diabetic foot examination Diabetic Foot Exam [facility] Start: 12-11-1949 Glaucoma screening Dilated Retinal Exam [facility] Start: 12-11-1949 Hepatitis C antibody, confirmatory test DILATED RETINAL EXAM [facility] Start: 12-11-1945 Pneumococcal Vaccine: 65+ (1 - PCV) Pneumococcal Vaccine: 65+ (1 - PCV) [facility] Start: 12-11-1945 Pneumococcal Vaccine: 65+ (1 of 2 - PCV) Pneumococcal Vaccine: 65+ (1 of 2 - PCV) [facility] Start: 12-11-1945 PNEUMOCOCCAL: 65+ (1 - PCV) PNEUMOCOCCAL: 65+ (1 - PCV) [facility] Start: 1939 Creatinine measurement Creatinine Level [facility] Start: 1939 Echocardiography Echocardiogram [facility] Start: 1939 Medicare Annual Wellness (AWV) Medicare Annual Wellness (AWV) [facility] Start: 1939 Potassium measurement Potassium Level [facility] Start: 1939 Screening for osteoporosis Bone Density Scan [facility] Start: 1939 Tetanus vaccination [facility] Alanine aminotransfe rase [Enzymatic activity/volume] in Serum or Plasma [facility] Albumin [Mass/volume ] in Serum or Plasma [facility] Alkaline phosphatase [Enzymatic activity/volume] in Serum or Plasma [facility] Anion gap measurement [facility] Aspartate aminotransferase [Enzymatic activity/volume] in Serum or Plasma [facility] Bacteria identified in Urine by Culture [facility] Bilirubin measuremen t, urine [facility] Bilirubin, total measurement [facility] BUN/Creatinine ratio [facility] Calcium [Mass/volume ] in Serum or Plasma [facility] Carbon dioxide, tota l [Moles/volume] in Serum or Plasma [facility] Chloride [Moles/volu me] in Serum or Plasma [facility] Clostridioides diffi cile DNA [Presence] in Unspecified specimen by ALBIN with probe detection [facility] Creatinine [Moles/vo lume] in Serum or Plasma [facility] End: 12-05-2022 Ct abdomen & pelvis w/o contrst 1/> body re CT UROGRAM WO/W IVCON Radiology Routine Neoplasm of bladder Malignant neoplasm of urinary bladder, unspecified site (HCC) 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) Stage 3b chronic kidney disease (HCC) Microscopic hematuria 1 Occurrences starting 11/05/2021 until 12/05/2022 [facility] Work Phone: Comment on above: 1 Occurrences starting 11/05/2021 until 12/05/2022 End: 05-06-2024 Ct abdomen & pelvis w/o contrst 1/> body re CT UROGRAM WO/W IVCON Radiology Routine Malignant neoplasm of urinary bladder, unspecified site (HCC) Malignant neoplasm of overlapping sites of bladder (HCC) 1 Occurrences starting 04/07/2023 until 05/06/2024 [facility] Work Phone: Comment on above: 1 Occurrences starting 04/07/2023 until 05/06/2024 Cystourethroscopy CYSTO.PANENDO Procedures Routine Gross hematuria Urothelial carcinoma of bladder (HCC) Ordered: 03/24/2023 [facility] Work Phone: Comment on above: Ordered: 03/24/2023 End: 09-11-2023 DIAGNOSTIC UPPER ENDOSCOPY [facility] Work Phone: End: 11-06-2022 ECG COMPLETE ECG COMPLETE ECG Routine Hypertension, unspecified type 1 Occurrences starting 11/06/2021 until 11/06/2022 [facility] Work Phone: Comment on above: 1 Occurrences starting 11/06/2021 until 11/06/2022 End: 09-15-2023 Echocardiography [facility] Erythrocyte mean corpuscular volume determination [facility] Glucose [Mass/volume ] in Serum or Plasma [facility] Hematocrit [Volume Fraction] of Blood [facility] Hemoglobin [Mass/vol ume] in Blood [facility] Hemoglobin [Presence ] in Urine [facility] Hepatitis B virus co re Ab [Presence] in Serum [facility] Leukocytes [#/volume ] in Blood [facility] Magnesium [Mass/volu me] in Serum or Plasma [facility] Mean corpuscular hemoglobin concentration determination [facility] Mean corpuscular hemoglobin determination [facility] Measurement of keton es in urine using dipstick [facility] Measurement of renal function [facility] Microscopic urinalysis [facility] End: 05-15-2024 Mri abdomen w/o & w/contrast material MRI ABDOMEN URO WO/W IVCON Radiology Routine Malignant neoplasm of urinary bladder, unspecified site (HCC) 1 Occurrences starting 04/16/2023 until 05/15/2024 [facility] Work Phone: Comment on above: 1 Occurrences starting 04/16/2023 until 05/15/2024 End: 05-15-2024 Mri pelvis w/o & w/contrast material MRI PELVIS URO WO/W IVCON Radiology Routine Malignant neoplasm of urinary bladder, unspecified site (HCC) 1 Occurrences starting 04/16/2023 until 05/15/2024 [facility] Work Phone: Comment on above: 1 Occurrences starting 04/16/2023 until 05/15/2024 Neutrophil count [facility] Neutrophil percent differential count [facility] Nucleic acid assay [facility] Patient Education [facility] Work Phone: Patient referral [facility] Work Phone: pH of Urine [facility] Platelets [#/volume] in Blood [facility] Potassium [Moles/vol ume] in Serum or Plasma [facility] Red blood cell count [facility] Red cell distributio n width determination [facility] Sodium [Moles/volume ] in Serum or Plasma [facility] Specific gravity of Urine [facility] Total protein measurement [facility] Troponin I measurement [facility] Urea nitrogen [Mass/volume] in Serum or Plasma [facility] Urinalysis, blood, qualitative [facility] Urine dipstick for glucose [facility] Urine dipstick for leukocyte esterase [facility] Urine dipstick for nitrite [facility] Urine dipstick for protein [facility] Urine examination [facility] Urine microscopy: epithelial cells [facility] Urine Microscopy: wh ite cells [facility] Urobilinogen [Presen ce] in Urine [facility] End: 09-15-2023 VITAMIN B1 [facility] VITAMIN B1 [facility] Immunizations Immunization Date Immunization Notes Care Provider Joanna villanueva 03-16-2022 influenza, high-dose , quadrivalent SHIRA ROY MD [facility] 03-16-2022 influenza virus vaccine, unspecified formulation Simone Calvin MD Work Phone: [facility] 08-24-2021 SARS-CoV-2 (COVID-19 ) mRNA-1273 vaccine ROSEANNE BACA MD [facility] 02-03-2021 influenza (aIIV4) vaccine, age 65+ yr, quadrivalent, PF (FLUAD QUADRIVALENT) Yovani Peoples MD Work Phone: [facility] 02-03-2021 influenza virus vaccine, unspecified formulation Abiel Smith MD Work Phone: [facility] 2020 SARS-CoV-2 (COVID-19 ) mRNA-1273 vaccine ROSEANNE BACA MD [facility] Comment on above: Result Comment: 2024: [id number] 06-22-2020 SARS-CoV-2 (COVID-19 ) mRNA-1273 vaccine ROSEANNE BACA MD [facility] 05-25-2020 SARS-CoV-2 (COVID-19 ) mRNA-1273 vaccine ROSEANNE BACA MD [facility] 12-22-2019 influenza virus vaccine, unspecified formulation ROSEANNE BACA MD [facility] 01-20-2019 influenza virus vaccine, unspecified formulation ROSEANNE BACA MD [facility] 02-04-2018 influenza virus vaccine, unspecified formulation ROSEANNE BACA MD [facility] 01-29-2017 influenza virus vaccine, unspecified formulation ROSEANNE BACA MD [facility] 01-18-2016 influenza virus vaccine, unspecified formulation ROSEANNE BACA MD [facility] 11-23-2013 hepatitis A vaccine, adult dosage ROSEANNE BACA MD [facility] Payers Date Payer Category Payer Medicare [id number] 06-05-2023 Self-pay 04-28-2023 Unknown [id number] 02-26-2017 Private Health Insurance [id number] 02-05-2005 Unknown AMA INSURANCE AG ENCY AMA INSURANCE AGENCY SUPPLEMENT [id number] 02/05/2005-Present [phone] [address] [place] [address] Indemnity [id number] 11-26-2004 Medicare MEDICARE MEDICAR E A AND B [id number] 11/26/2004-Present [phone] [address] [address] [place] [address] Medicare [id number] 11-26-2004 Medicare [id number] 11-26-2004 Medicare [id number] 11-26-2004 Unknown [id number] 1.13.159.2 .[id number] 11-26-2004 Unknown [id number] 1939 Unknown [id number] 2.16.840.1.036483.3.579.2 .627 1939 Unknown [id number] 2.16.840.1.599829.3.579.2 .627 1939 Unknown [id number] 2.16.840.1.541339.3.579.2 .627 1939 Unknown [id number] 2.16.840.1.194868.3.579.2 .627 1939 Unknown [id number] 2.16.840.1.852879.3.579.2 .627 1939 Unknown [id number] 2.16.840.1.091683.3.579.2 .62 1939 Unknown [id number] 2.16.840.1.794262.3.579.2 .627 1939 Unknown [id number] 2..840.1.530565.3.579.2 .62 1939 Unknown [id number] 2..840.1.224592.3.579.2 .62 1939 Unknown [id number] 2.840.1.552577.3.579.2 .1939 Unknown [id number] 2.840.1.055946.3.579.2 .1939 Unknown [id number] 2.840.1.179923.3.579.2 .1939 Unknown [id number] 2.840.1.992215.3.579.2 .62 1939 Unknown [id number] 2.840.1.894580.3.579.2 .1939 Unknown [id number] 2.840.1.028145.3.579.2 .62 1939 Unknown [id number] 2.840.1.832467.3.579.2 .62 1939 Unknown [id number] 2.840.1.169548.3.579.2 .62 1939 Unknown [id number] 2.840.1.357224.3.579.2 .1939 Unknown [id number] 2.16.840.1.233272.3.579.2 .62 1939 Unknown [id number] 2.840.1.029025.3.579.2 .627 1939 Unknown [id number] 2.16.840.1.569107.3.579.2 .62 1939 Unknown [id number] 2.16.840.1.244054.3.579.2 .62 1939 Unknown [id number] 2.16.840.1.732489.3.579.2 .62 1939 Unknown [id number] 2.16.840.1.314508.3.579.2 .62 1939 Unknown [id number] 2..840.1.087313.3.579.2 .1939 Unknown [id number] 2..840.1.519935.3.579.2 .62 1939 Unknown [id number] 2.840.1.893249.3.579.2 .1939 Unknown [id number] 2.840.1.120401.3.579.2 .1939 Unknown [id number] 2.840.1.070466.3.579.2 .62 1939 Unknown [id number] 2..840.1.235456.3.579.2 .62 1939 Unknown [id number] 2.840.1.289996.3.579.2 .62 1939 Unknown [id number] 2.16.840.1.659913.3.579.2 .594 1939 Unknown [id number] 2..840.1.220936.3.579.2 .1939 Unknown [id number] 2..840.1.187002.3.579.2 .62 1939 Unknown [id number] 2..840.1.000404.3.579.2 .62 1939 Unknown [id number] 2.16.840.1.452314.3.579.2 .627 1939 Unknown [id number] 2.16.840.1.283221.3.579.2 .62 1939 Unknown [id number] 2.16.840.1.380445.3.579.2 .62 1939 Unknown [id number] 2..840.1.763306.3.579.2 .62 1939 Unknown [id number] 2..840.1.293703.3.579.2 .62 1939 Unknown [id number] 2..840.1.120340.3.579.2 .62 1939 Unknown [id number] 2..840.1.173825.3.579.2 .62 1939 Unknown [id number] 2..840.1.889761.3.579.2 .62 1939 Unknown [id number] 2..840.1.438314.3.579.2 .627 Unknown [id number] 2.16.840.1.951968.3.579.2 .462 Unknown [id number] 2.16.840.1.580653.3.579.2 .462 Unknown [id number] 2.16.840.1.271514.3.579.2 .462 Unknown [id number] 2.16.840.1.456095.3.579.2 .462 Unknown [id number] 2.16.840.1.184594.3.579.2 .462 Unknown [id number] 2.16.840.1.397018.3.579.2 .462 Unknown [id number] 2.16.840.1.504228.3.579.2 .462 Unknown [id number] 2.16.840.1.778954.3.579.2 .462 Unknown [id number] 2.16.840.1.466196.3.579.2 .462 Unknown [id number] 2.16.840.1.019505.3.579.2 .462 Unknown [id number] 2.16.840.1.257774.3.579.2 .462 Unknown [id number] 2.16.840.1.228376.3.579.2 .462 Unknown [id number] 2.16.840.1.434265.3.579.2 .462 Unknown [id number] 2.16.840.1.134732.3.579.2 .462 Unknown [id number] 2.16.840.1.560294.3.579.2 .462 Unknown [id number] 2.16.840.1.082475.3.579.2 .462 Unknown [id number] 2.16.840.1.257271.3.579.2 .462 Unknown [id number] 2.16.840.1.445644.3.579.2 .462 Unknown [id number] 2.16.840.1.216309.3.579.2 .462 Unknown [id number] 2.16.840.1.118998.3.579.2 .462 Unknown [id number] 2.16.840.1.618315.3.579.2 .462 Unknown [id number] 2.16.840.1.220799.3.579.2 .462 Unknown [id number] 2.16.840.1.128182.3.579.2 .462 Unknown [id number] 2.16.840.1.381816.3.579.2 .462 Unknown [id number] 2.16.840.1.705839.3.579.2 .462 Unknown [id number] 2.16.840.1.241860.3.579.2 .462 Unknown [id number] 2.16.840.1.137026.3.579.2 .462 Unknown [id number] 2.16.840.1.700543.3.579.2 .462 Unknown [id number] 2.16.840.1.653909.3.579.2 .462 Unknown [id number] 2.16.840.1.252499.3.579.2 .462 Unknown [id number] 2.16.840.1.872497.3.579.2 .462 Unknown [id number] 2.16.840.1.248416.3.579.2 .462 Unknown [id number] 2.840.1.010401.3.579.2 .462 Unknown [id number] 2.840.1.798454.3.579.2 .462 Unknown [id number] 2.840.1.300487.3.579.2 .462 Unknown [id number] 2.840.1.549311.3.579.2 .462 Unknown [id number] 2.840.1.489063.3.579.2 .462 Unknown [id number] 2.16.840.1.593752.3.579.2 .462 Unknown [id number] 2.16840.1.966789.3.579.2 .462 Unknown [id number] 2.840.1.499612.3.579.2 .462 Unknown [id number] 2.16.840.1.821427.3.579.2 .462 Unknown [id number] 2.16.840.1.321588.3.579.2 .462 Unknown [id number] 2.16.840.1.848569.3.579.2 .462 Unknown [id number] 2.16.840.1.981769.3.579.2 .462 Unknown [id number] 2.16840.1.198366.3.579.2 .462 Unknown [id number] 2.16840.1.818650.3.579.2 .462 Unknown [id number] 2.840.1.529645.3.579.2 .462 Unknown [id number] 2.16840.1.179203.3.579.2 .462 Unknown [id number] 2.840.1.735903.3.579.2 .462 Unknown [id number] 2.840.1.491693.3.579.2 .462 Unknown [id number] 2.840.1.228037.3.579.2 .462 Unknown [id number] 2.840.1.828652.3.579.2 .462 Unknown [id number] 2.840.1.339710.3.579.2 .462 Unknown [id number] 2.840.1.479501.3.579.2 .462 Unknown [id number] 2.840.1.681264.3.579.2 .462 Unknown [id number] 2.840.1.904112.3.579.2 .462 Unknown [id number] 2.840.1.384851.3.579.2 .462 Unknown [id number] 2.840.1.781330.3.579.2 .462 Unknown [id number] 2.840.1.218768.3.579.2 .462 Unknown [id number] 2.840.1.386462.3.579.2 .462 Unknown [id number] 2.840.1.204412.3.579.2 .462 Unknown [id number] 2.840.1.115781.3.579.2 .462 Unknown [id number] 2.840.1.112868.3.579.2 .462 Unknown [id number] 2.16.840.1.547586.3.579.2 .462 Unknown [id number] 2.16.840.1.740713.3.579.2 .462 Unknown [id number] 2.16.840.1.114462.3.579.2 .462 Unknown [id number] 2.16.840.1.009206.3.579.2 .462 Unknown [id number] 2.16.840.1.032832.3.579.2 .462 Unknown [id number] 2.16.840.1.296011.3.579.2 .462 Unknown [id number] 2.16.840.1.425255.3.579.2 .462 Unknown [id number] 2.16.840.1.011154.3.579.2 .462 Unknown [id number] 2.16.840.1.079690.3.579.2 .462 Unknown [id number] 2.16.840.1.957868.3.579.2 .462 Unknown [id number] 2.16.840.1.585885.3.579.2 .462 Unknown [id number] 2.16.840.1.491802.3.579.2 .462 Unknown [id number] 2.16.840.1.064093.3.579.2 .462 Unknown [id number] 2.16.840.1.141196.3.579.2 .462 Unknown [id number] 2.16.840.1.189992.3.579.2 .462 Social History Date Type Detail Facility Start: 02-13-2021 End: 05-15-2024 Never smoked tobacco (finding) [facility] Sex Assigned At [facility] Start: 03-24-2012 End: 09-10-2023 Tobacco use and exposure Smokeless tobacco non-user [facility] Start: 03-08-2021 End: 11-23-2021 Alcohol intake Current non-drinker of alcohol (finding) [facility] Start: 1940 Sex Assigned At Not on file C [facility] Start: 10-22-2021 End: 11-26-2021 Exposure to SARS-CoV-2 (event) Not sure [facility] Start: 10-26-2021 End: 11-05-2021 Exposure to SARS-CoV-2 (event) Unable to assess [facility] Work Phone: Start: 1940 Sex Assigned At Female [facility] Start: 08-01-2022 End: 09-04-2023 Tobacco smoking status NHIS Unknown if ever smoked [facility] Start: 11-23-2021 End: 09-15-2023 History of Social function [facility] Start: 11-23-2021 End: 09-15-2023 Tobacco use panel [facility] Adult Depression Screening Assessment 1 [facility] Start: 07-22-2023 Non-smoker [facility] Start: 09-15-2023 Alcoholic beverage intake Lifetime non-drinker (finding) [facility] Start: 06-05-2005 End: 07-07-2024 Sex Female (finding) [facility] NEGATED: Highlighted row [facility] NEGATED: Highlighted row [facility] Medical Equipment Procedure Code Equipment Code Equipment Origin al Text Equipment Identifier Dates Insertion, catheter, hemodialysis FDA Start: 01-23-2024 Insertion, catheter, hemodialysis CATHETER, CVD PLNDRME 19CM FDA Start: 01-23-2024 Creation, AV fistula ()[id number] FDA Start: 08-22-2022 Creation, AV fistula ()107 [id number] FDA Start: 08-22-2022 Creation, AV fistula ()107 [id number] FDA Start: 08-22-2022 Creation, AV fistula ()107 [id number] FDA Start: 08-22-2022 Creation, AV fistula ()107 [id number] FDA Start: 10-10-2022 Creation, AV fistula ()107 [id number] FDA Start: 10-10-2022 Creation, AV fistula ()107 [id number] FDA Start: 10-10-2022 Goals Date Patient Goal Desired Activity /State Functional Status Date Assessment Result Facility 09-07-2024 Functional Status Sleeping quiet ly with easy respirations [facility] 09-07-2024 Functional Status Assistive Krystina ce Sit to stand aid [facility] 09-07-2024 Functional Status Up to chair [facility] 08-17-2024 Functional Status Activity Status ADL Marcella ke [facility] 08-17-2024 Functional Status [facility] 08-17-2024 Functional Status ID band on, Call device within reach, Safety level maintained [facility] 07-27-2024 Functional Status Awake [facility] 07-27-2024 Functional Status [facility] 07-06-2024 Functional Status Awake [facility] 07-06-2024 Functional Status [facility] 05-19-2024 Functional status Chair [facility] Work Phone: 07-22-2023 Functional status Ambulates;Bedside Commo [facility] Work Phone: 07-21-2023 Functional status None [facility] Work Phone: 05-23-2022 Functional Status ID band on, Call device within reach, Wheels locked, Phone within reach, personal items within reach, Visitor at bedside [facility] 03-19-2022 Functional Status Identified as high risk, Room check performed, Alarm activated & functional [facility] 03-19-2022 Functional Status [facility] 03-19-2022 Functional Status Done [facility] 03-19-2022 Functional Status [facility] 03-18-2022 Functional Status [facility] 03-18-2022 Functional Status [facility] 03-18-2022 Functional Status [facility] 03-18-2022 Functional Status [facility] 03-18-2022 Functional Status [facility] 03-17-[address] Status [facility] 03-17-2022 Functional Status Dinner Percent 100 [facility] 03-17-2022 Functional Status [facility] 03-17-2022 Functional Status [facility] 03-16-2022 [facility] Functional Status Identified as high risk, Room check performed [facility] 01-10-2022 Functional Status Up to chair [facility] 01-03-2022 Functional Status Awake [facility] 12-27-2021 Functional Status Room check performed [facility] 11-30-2021 Functional Status Awake, Remains up in chair [facility] 11-19-2021 Functional Status Sensory Deficits None A [facility] 11-09-2021 Functional Status ID band on, Call device within reach [facility] 11-02-2021 Functional Status Awake, Remains up in chair [facility] 10-26-2021 Functional Status Resting [facility]harat [facility] 09-03-2021 Functional Status [facility] 09-03-2021 Functional Status [facility] 08-29-2021 Functional Status [facility] 08-29-2021 Functional Status [facility] 08-27-2021 Functional Status [facility] 08-22-2021 Functional Status [facility] 08-15-2021 Functional Status [facility] 08-08-2021 Functional Status [facility] 08-01-2021 Functional Status [facility] Mental Status Date Assessment Result Facility 09-07-2024 Mental Status Oriented x 4 [facility] 08-17-2024 Mental Status Orientation Oriented x 4 [facility] 06-30-2024 Cognitive function Awake;Alert;A ppropriate;Follo ws [facility] Work Phone: 06-16-2024 Cognitive function Awake;Alert;A ppropriate;Follo ws Commands [facility] Work Phone: 05-25-2024 Cognitive function Voice[facility]Name [facility] Work Phone: 05-19-2024 Cognitive function Voice/Name [facility] Work Phone: 09-04-2023 Cognitive function Awake;Alert;A ppropriate;Follo ws [facility] Work Phone: 07-22-2023 Cognitive function Voice/Name [facility] Work Phone: 07-15-2023 Cognitive function Voice/Name [facility] Work Phone: 11-28-2022 Cognitive function Voice/Name [facility] Work Phone: 11-20-2022 Cognitive function Voice/Name [facility] Work Phone: 11-13-2022 Cognitive function Voice/Name [facility] Work Phone: 11-06-2022 Cognitive function Voice/Name [facility] Work Phone: 10-30-2022 Cognitive function Voice/Name [facility] Work Phone: 10-23-2022 Cognitive function Voice/Name [facility] Work Phone: 10-17-2022 Cognitive function Voice/Name [facility] Work Phone: 10-10-2022 Cognitive function Voice/Name [facility] Work Phone[facility] 09-18-2022 [facility]: 08-22-2022 Cognitive function Voice/Name [place] [facility] Work Phone: 08-21-2022 Cognitive function Voice/Name [facility] Work Phone: 08-14-2022 Cognitive function [facility] Work Phone: 08-07-2022 Cognitive function Awake;Alert;A ppropriate;Follo ws Commands [facility] Work Phone: 07-31-2022 Cognitive function [facility] Work Phone: 07-25-2022 Cognitive function [facility] Work Phone: 07-18-2022 Cognitive function Voice/Name [facility] Work Phone: 07-11-2022 Cognitive function Awake;Alert;A ppropriate;Follo ws Commands [facility] Work Phone: 07-04-2022 Cognitive function Awake;Alert;A ppropriate;Follo ws Commands [facility] Work Phone: 06-27-2022 Cognitive function Voice/Name [facility] Work Phone: 06-13-2022 Cognitive function Voice/Name [facility] Work Phone: 05-23-2022 Mental Status Orientation Oriented x 4 [facility] 03-19-2022 Mental Status Orientation Oriented x 4 [facility] 03-19-2022 Mental Status [facility] 03-19-2022 Mental Status [facility] 03-18-2022 Mental Status [facility] 03-18-2022 Mental Status [facility] 01-24-2022 Mental Status Orientation Orie nted x 4, Follows simple commands [facility] 01-10-2022 Mental Status Orientation Oriented x 4 [facility] 01-03-2022 Mental Status Oriented x 4 [facility] 12-27-2021 Mental Status Orientation Oriented x 4 [facility] 11-30-2021 Mental Status Orientation Oriented x 4 [facility] 11-19-2021 Mental Status Orientation Oriented x 4 [facility] 11-09-2021 Mental Status Orientation Oriented x 4 [facility] 11-02-2021 Mental Status Orientation Orie nted x 4, Follows simple commands [facility] 10-26-2021 Mental Status Orientation Oriented x 4 [facility] 09-03-2021 Mental Status [facility] 08-29-2021 [facility] Status [facility] 08-27-2021 Mental Status [facility] 08-22-2021 Mental Status [facility] 08-15-2021 Mental Status [facility] 08-08-2021 Mental Status [facility] Clinical Notes 02-21-2021 to 09-16-2024 Telephone Encounter - Gabriella Almaguer - 09/16/2024 9:20 AM EDTTelephone Encounter - Gabriella Schaeffer Rosina - 09/16/2024 9:20 AM EDTTelephone Encounter - Sarah Sumeet Boyd - 07/08/2024 9:06 AM EDT Note Date & Type Note Facility 09-16-2024 Telephone encount er Note Name of Caller: diya Contact Reason for Appointment: Pt's son calling in to cancel her 09/28 appointment. Please advise. Office Name: [facility] Medication Refills need, if any: / Medication Name: /\ [facility] 09-16-2024 Miscellaneous Notes Formattin g of this note might be different from the original. Name of Caller: diya Contact Reason for Appointment: Pt's son calling in to cancel her 09/28 appointment. Please advise. 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 Tests Performed .Auto Differential .Estimated Glomerular Filtration Rate .Neutro Absolute ABO/Rh (Gel) Antibody Screen (Gel) CBC CMP Cortisol Level Crossmatch LDH Red Blood Cell (Product) TSH Your Care Team Attending Physician - CHRISTAL LIMA APRN-DRAPERY SUPERVISOR Primary Care Physician - SHIRA ROY MD Vitals Temperature (Oral) 97.5 F (36.4 C) Heart Rate 80 Respiratory Rate 18 Blood Pressure 154/87 Weight 102.53 lb (46.5 kg) What to do next Instructions From Your Doctor You have received the following therapy today: Chemotherapy/Immunotherapy Call your physician if any of the following problems occur: Nausea/Vomiting Mouth Sores Diarrhea Fever Prolonged bleeding or easy bruising Pain or discomfort at the injection site You have received the following therapy today: Blood Transfusion/ Platelets Call your physician if any of the following problems occur: Chills Fever Itching Rash Difficulty Breathing Backache Scheduled Follow-Up Appointments Appointment Type When With Where Contact Information StatusyyCT Abdomen and Pelvis w/ Contrast 3 09/14/2024 01:00 PM EDT [facility] [phone] Confirmed yyCT Chest w/ Contrast 3 09/14/2024 01:30 PM EDT [facility] [phone] Confirmed INF/OSP Labwork 09/28/2024 09:15 AM EDT Infusion Therapy Confirmed HEM ONC OV Follow Up w/ Active Treatme 09/28/2024 10:00 AM EDT ROSEANNE BACA MD Hematology and Oncology Confirmed INF Chemo: Infusion 120 min (2 hours) 09/28/2024 10:30 AM EDT Infusion Therapy Confirmed Medications What How Much When Why Instructions Unchanged acetaminophen (Tylenol 325 mg oral tablet) 2 tab(s) by mouth Every 4 hours as needed for as needed for pain Unchanged atorvastatin (atorvastatin 10 mg oral tablet) TAKE 1 TABLET BY MOUTH EVERY DAY Unchanged bimatoprost ophthalmic (Lumigan 0.01% ophthalmic solution) 1 Drops Both eyes Once a day (in the evening) Unchanged calcitriol (calcitriol 0.25 mcg oral capsule) 1 cap by mouth Once a day Unchanged carvedilol (carvedilol 25 mg oral tablet) TAKE 2 TABLETS BY MOUTH TWICE DAILY Unchanged cloNIDine (cloNIDine 0.2 mg oral tablet) 1 tab(s) by mouth Every 6 hours as needed for Anxiety Unchanged gabapentin (gabapentin 100 mg oral capsule) 2 cap by mouth Two (2) times a day Cancer related pain Unchanged hydrALAZINE (hydrALAZINE 50 mg oral tablet) 1 tab(s) by mouth Three (3) times a day Unchanged latanoprost ophthalmic (latanoprost 0.005% ophthalmic solution) INSTILL ONE DROP IN BOTH EYES AT BEDTIME Unchanged levothyroxine (levothyroxine 25 mcg (0.025 mg) oral tablet) 1 tab(s) by mouth Daily Friday through Friday Unchanged lisinopril (lisinopril 20 mg oral tablet) TAKE 1 TABLET BY MOUTH TWICE DAILY Unchanged loperamide (Imodium 2 mg oral capsule) by mouth Every 4 hours as needed for as needed for loose stool Unchanged loratadine (loratadine 10 mg oral capsule) 1 cap by mouth Once a day Unchanged mirtazapine (mirtazapine 7.5 mg oral tablet) TAKE 1 TABLET BY MOUTH EVERY DAY AT BEDTIME Unchanged multivitamin (Multiple Vitamins oral tablet) 1 tab(s) by mouth Daily at bedtime Unchanged ondansetron (ondansetron 8 mg oral tablet, disintegrating) 1 tab(s) by mouth Two (2) times a day as needed for Nausea/Vomiting Unchanged pantoprazole (pantoprazole 40 mg oral enteric coated tablet) 1 tab(s) by mouth Once a day before a meal Unchanged senna (senna (sennosides) 8.6 mg oral tablet) 2 tab(s) by mouth Daily at bedtime as needed for as needed for constipation Unchanged sucralfate (sucralfate 1 g oral tablet) 1 tab(s) by mouth Two (2) times a day Test Results .Auto Differential (09/07/2024) Neutrophil % - 69.8 % Lymphocyte % - 15.3 % Monocyte % - 9.6 % Eosinophil % - 4.6 % Basophil % - 0.7 % Lymphocyte, Absolute - 0.8 10^3/mcL Monocyte, Absolute - 0.5 10^3/mcL Eosinophil, Absolute - 0.2 10^3/mcL Basophil, Absolute - 0.0 10^3/mcL .Estimated Glomerular Filtration Rate (09/07/2024) Estimated Glomerular Filtration Rate - 12 ml/min/1.73sqm .Neutro Absolute (09/07/2024) Neutrophil, Absolute - 3.5 10^3/mcL ABO/Rh (Gel) (09/07/2024) ABO/Rh Interp - O POS Antibody Screen (Gel) (09/07/2024) ABSC Interp (Gel) - Negative ABSC CBC (09/07/2024) WBC - 5.0 10^3/mcL RBC - 2.60 10^6/mcL Hgb - 7.6 G/dL Hct - 23.0 % MCV - 88.4 fL MCH - 29.2 pg MCHC - 33.1 G/dL RDW - 19.2 % Platelet - 114 10^3/mcL MPV - 8.9 fL CMP (09/07/2024) Glucose Level - 112 mg/dL Sodium Level - 136 mEq/L Potassium Level - 4.7 mEq/L Chloride - 101 mEq/L CO2 - 30 mEq/L Electrolyte Balance - 5.0 mEq/L BUN - 36.0 mg/dL Creatinine Lvl (s) - 3.65 mg/dL BUN/Creatinine Ratio - 9.9 ratio Calcium Lvl - 8.7 mg/dL Total Protein - 4.7 G/dL Albumin Level - 2.3 G/dL Globulin - 2.4 G/dL A/G Ratio - 1.0 ratio Bili Total - <0.20 mg/dL Alk Phos - 69 U/L AST/SGOT - 13 U/L ALT/SGPT - <8 U/L Cortisol Level (09/07/2024) Cortisol Level - 12.5 mcg/dL Crossmatch (09/07/2024) Crossmatch, Immediate Spin - Compatible Crossmatch, Immediate Spin - Compatible LDH (09/07/2024) LDH - 181 U/L Red Blood Cell (Product) (09/07/2024) RBC Product Ready - RBC Ready for Pickup TSH (09/07/2024) TSH - 4.054 mIU/mL Allergies Humira Additional Information VACCINATE! IT SAVES LIVES! Members of the community who have not yet received the COVID-19 vaccine and would like to receive it can visit one of [facility] vaccine clinics. There are many vaccine clinic locations within the [facility]. For locations and available times, please visit [email or web address]. It is important to note that some COVID mobile vaccine clinics are held outdoors and may be canceled in rainy or stormy conditions. To learn more about pediatric vaccinations (ages 5-11), we invite you to visit the [employer] webpage. [email or web address] To learn more about the COVID-19 vaccine, we invite you to visit the CDC website for a list of frequently asked questions. https://www.cdc.gov/coronavirus/201 9-ncov/vaccines/faq.html [facility] Patient Portal Access Instructions: Stay connected with your healthcare team and access your personal medical information anytime with the [employer] Patient Portal.If you would like a full copy of your medical records, please contact the [facility] Medical Records Department, Friday through Friday between 8a.m. and 4:30p.m. Please follow the directions below to access the portal: 1.Access the email account you provided upon registration to the [facility].2.Look for an invitation email from [facility].3.Open the email and access the invitation link: Accept Invitation to [place] [facility].Fill in the required diaz to create your account. Sign into [email or web address] with your username and password that you created in the above steps to stay up to date. You can then view a summary of results, a summary of your visits, and the ability to download your summaries to your computer or send the information securely to a physician. Remember that your healthcare information is confidential, so carefully consider who you will allow to register on the [facility] Patient Portal for access to your information. You can also access the [employer] Patient Portal on the [employer] carol ann. Simply click on Health Records under Health Data and then click on the [employer] logo. HOW TO SAFELY DISPOSE OF PRESCRIPTION MEDICATIONS Please use one of the following methods to safely dispose of your unused medications. 1.Use a drug disposal kit: the drug disposal pouch allows you to safely discard your old and unused drugs. Ask your nurse to give you one when you are discharged.2.Visit a local take-back location: Many local pharmacies and police departments have programs that collect old and unwanted prescription drugs. Call your local pharmacy or go to [email or web address] to find one close to you.3.Make use of household items: Use cat litter or old coffee grounds to dispose medications if other options are not available. Mix your drugs with these household products, seal them in an airtight container and throw it into the garbage. Call [facility]: [phone] to be sure your drugs can be disposed of in this way. Some medicines may require a different approach.4.Never flush your medications down the toilet. IF YOU HAVE BEEN PRESCRIBED AN OPIOID FOR PAIN If you have been prescribed an opioid (such as hydrocodone, oxycodone or morphine), it is critical to understand the possible side effects and risks of opioid pain medications. Even when taken as directed, opioids can have several side effects including: Tolerance, meaning you might need to take more of a medication for the same pain relief. Nausea, vomiting and/or constipation. Sleepiness, dizziness, dry mouth, confusion, depression or itching. Physical dependence, meaning you have withdrawal symptoms when a medication is stopped, can develop within a few days. KNOW YOUR RESPONSIBILITIES It is important to know exactly how much and how often to take the opioid pain medications you are prescribed. Never take opioids in higher amounts or more often than prescribed. Do not combine opioids with alcohol or other drugs that cause drowsiness, such as benzodiazepines, also known as benzos, including diazepam and alprazolam, muscle relaxants or sleep aids. Never sell or share prescription opioids. This is illegal. Store opioids in a secure place and out of reach of others (including children, family, friends and visitors). The last page of this document has been signed and retained as a CHART COPY. Signatures Patient Education Materials Medication Leaflets My discharge plan and instructions have been reviewed and explained to me and I,LAVINIA DURAND understand my current condition and have read and understand these discharge instructions. I have received a written copy of the plan/instructions. If I have questions, I am aware that I should contact my doctor. 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: ____ Date/Time: Relationship to Patient: __ Witness Name/Signature: Date/Time: [facility] 08-17-2024 Summary of episod e note LAVINIA DURAND :1940 Visit Date:08/17/2024 Your Visit Summary Your Diagnosis Cancer of overlapping sites of bladder Cancer of overlapping sites of bladder Tests Performed .Auto Differential .Estimated Glomerular Filtration Rate .Neutro Absolute ABO/Rh (Gel) Antibody Screen (Gel) CBC CMP Cortisol Level Crossmatch LDH Red Blood Cell (Product) TSH Your Care Team Attending Physician - ROSEANNE BACA MD Primary Care Physician - SHIRA ROY MD Vitals Temperature (Oral) 98.2 F (36.8 C) Heart Rate 69 Respiratory Rate 16 Blood Pressure 187/61 Height 60.00 in (152.4 cm) Weight 103.19 lb (46.8 kg) BMI 20.15 What to do next Instructions From Your Doctor You have received the following therapy today: Chemotherapy/Immunotherapy Call your physician if any of the following problems occur: Nausea/Vomiting Mouth Sores Diarrhea Fever Prolonged bleeding or easy bruising Pain or discomfort at the injection site You have received the following therapy today: Blood Transfusion/ Platelets Call your physician if any of the following problems occur: Chills Fever Itching Rash Difficulty Breathing Backache Scheduled Follow-Up Appointments Appointment Type When With Where Contact Information StatusINF/OSP Labwork 09/07/2024 09:00 AM EDT Infusion Therapy Confirmed HEM ONC OV Follow Up w/ Active Treatme 09/07/2024 09:45 AM EDT ROSEANNE BACA MD [place] [facility] Confirmed INF Chemo: Infusion 120 min (2 hours) 09/07/2024 10:15 AM EDT Infusion Therapy Confirmed Medications What How Much When Why Instructions Unchanged acetaminophen (Tylenol 325 mg oral tablet) 2 tab(s) by mouth Every 4 hours as needed for as needed for pain Unchanged atorvastatin (atorvastatin 10 mg oral tablet) TAKE 1 TABLET BY MOUTH EVERY DAY Unchanged bimatoprost ophthalmic (Lumigan 0.01% ophthalmic solution) 1 Drops Both eyes Once a day (in the evening) Unchanged calcitriol (calcitriol 0.25 mcg oral capsule) 1 cap by mouth Once a day Unchanged carvedilol (carvedilol 25 mg oral tablet) TAKE 2 TABLETS BY MOUTH TWICE DAILY Unchanged cloNIDine (cloNIDine 0.2 mg oral tablet) 1 tab(s) by mouth Every 6 hours as needed for Anxiety Unchanged gabapentin (gabapentin 100 mg oral capsule) 2 cap by mouth Two (2) times a day Cancer related pain Unchanged hydrALAZINE (hydrALAZINE 50 mg oral tablet) 1 tab(s) by mouth Three (3) times a day Unchanged latanoprost ophthalmic (latanoprost 0.005% ophthalmic solution) INSTILL ONE DROP IN BOTH EYES AT BEDTIME Unchanged levothyroxine (levothyroxine 25 mcg (0.025 mg) oral tablet) 1 tab(s) by mouth Daily Friday through Friday Unchanged lisinopril (lisinopril 20 mg oral tablet) TAKE 1 TABLET BY MOUTH TWICE DAILY Unchanged loperamide (Imodium 2 mg oral capsule) by mouth Every 4 hours as needed for as needed for loose stool Unchanged loratadine (loratadine 10 mg oral capsule) 1 cap by mouth Once a day Unchanged mirtazapine (mirtazapine 7.5 mg oral tablet) TAKE 1 TABLET BY MOUTH EVERY DAY AT BEDTIME Unchanged multivitamin (Multiple Vitamins oral tablet) 1 tab(s) by mouth Daily at bedtime Unchanged ondansetron (ondansetron 8 mg oral tablet, disintegrating) 1 tab(s) by mouth Two (2) times a day as needed for Nausea/Vomiting Unchanged pantoprazole (pantoprazole 40 mg oral enteric coated tablet) 1 tab(s) by mouth Once a day before a meal Unchanged senna (senna (sennosides) 8.6 mg oral tablet) 2 tab(s) by mouth Daily at bedtime as needed for as needed for constipation Unchanged sucralfate (sucralfate 1 g oral tablet) 1 tab(s) by mouth Two (2) times a day Test Results .Auto Differential (08/17/2024) Neutrophil % - 69.8 % Lymphocyte % - 16.9 % Monocyte % - 8.6 % Eosinophil % - 4.0 % Basophil % - 0.7 % Lymphocyte, Absolute - 0.8 10^3/mcL Monocyte, Absolute - 0.4 10^3/mcL Eosinophil, Absolute - 0.2 10^3/mcL Basophil, Absolute - 0.0 10^3/mcL .Estimated Glomerular Filtration Rate (08/17/2024) Estimated Glomerular Filtration Rate - 11 ml/min/1.73sqm .Neutro Absolute (08/17/2024) Neutrophil, Absolute - 3.1 10^3/mcL ABO/Rh (Gel) (08/17/2024) ABO/Rh Interp - O POS Antibody Screen (Gel) (08/17/2024) ABSC Interp (Gel) - Negative ABSC CBC (08/17/2024) WBC - 4.5 10^3/mcL RBC - 2.88 10^6/mcL Hgb - 8.5 G/dL Hct - 25.8 % MCV - 89.7 fL MCH - 29.6 pg MCHC - 33.0 G/dL RDW - 19.6 % Platelet - 138 10^3/mcL MPV - 8.2 fL CMP (08/17/2024) Glucose Level - 147 mg/dL Sodium Level - 139 mEq/L Potassium Level - 5.8 mEq/L Chloride - 103 mEq/L CO2 - 30 mEq/L Electrolyte Balance - 6.0 mEq/L BUN - 29.0 mg/dL Creatinine Lvl (s) - 3.95 mg/dL BUN/Creatinine Ratio - 7.3 ratio Calcium Lvl - 9.5 mg/dL Total Protein - 5.3 G/dL Albumin Level - 2.5 G/dL Globulin - 2.8 G/dL A/G Ratio - 0.9 ratio Bili Total - <0.20 mg/dL Alk Phos - 90 U/L AST/SGOT - 16 U/L ALT/SGPT - <7 U/L Cortisol Level (08/17/2024) Cortisol Level - 17.2 mcg/dL Crossmatch (08/17/2024) Crossmatch, Immediate Spin - Compatible LDH (08/17/2024) LDH - 168 U/L Red Blood Cell (Product) (08/17/2024) RBC Product Ready - RBC Ready for Pickup TSH (08/17/2024) TSH - 4.128 mIU/mL Allergies Humira Additional Information VACCINATE! IT SAVES LIVES! Members of the community who have not yet received the COVID-19 vaccine and would like to receive it can visit one of [facility] vaccine clinics. There are many vaccine clinic locations within the [facility]. For locations and available times, please visit [email or web address]. It is important to note that some COVID mobile vaccine clinics are held outdoors and may be canceled in rainy or stormy conditions. To learn more about pediatric vaccinations (ages 5-11), we invite you to visit the [employer] [facility] webpage. [email or web address] [email or web address] -[email or web address]-Questions.html To learn more about the COVID-19 vaccine, we invite you to visit the CDC website for a list of frequently asked questions. https://www.cdc.gov/coronavirus/201 9-ncov/vaccines/faq.html [place] [facility] Patient Portal Access Instructions: Stay connected with your healthcare team and access your personal medical information anytime with the [facility] Patient Portal.If you would like a full copy of your medical records, please contact the [facility] Medical Records Department, Friday through Friday between 8a.m. and 4:30p.m. Please follow the directions below to access the portal: 1.Access the email account you provided upon registration to the [facility].2.Look for an invitation email from [facility].3.Open the email and access the invitation link: Accept Invitation to [facility].Fill in the required diaz to create your account. Sign into [email or web address] with your username and password that you created in the above steps to stay up to date. You can then view a summary of results, a summary of your visits, and the ability to download your summaries to your computer or send the information securely to a physician. Remember that your healthcare information is confidential, so carefully consider who you will allow to register on the [facility] Patient Portal for access to your information. You can also access the [employer] Patient Portal on the General Assembly carol ann. Simply click on Health Records under Health Data and then click on the [employer] logo. HOW TO SAFELY DISPOSE OF PRESCRIPTION MEDICATIONS Please use one of the following methods to safely dispose of your unused medications. 1.Use a drug disposal kit: the drug disposal pouch allows you to safely discard your old and unused drugs. Ask your nurse to give you one when you are discharged.2.Visit a local take-back location: Many local pharmacies and police departments have programs that collect old and unwanted prescription drugs. Call your local pharmacy or go to http://[employer].Sophia Search/4T4Yv5q to find one close to you.3.Make use of household items: Use cat litter or old coffee grounds to dispose medications if other options are not available. Mix your drugs with these household products, seal them in an airtight container and throw it into the garbage. Call [facility]: [phone] to be sure your drugs can be disposed of in this way. Some medicines may require a different approach.4.Never flush your medications down the toilet. IF YOU HAVE BEEN PRESCRIBED AN OPIOID FOR PAIN If you have been prescribed an opioid (such as hydrocodone, oxycodone or morphine), it is critical to understand the possible side effects and risks of opioid pain medications. Even when taken as directed, opioids can have several side effects including: Tolerance, meaning you might need to take more of a medication for the same pain relief. Nausea, vomiting and/or constipation. Sleepiness, dizziness, dry mouth, confusion, depression or itching. Physical dependence, meaning you have withdrawal symptoms when a medication is stopped, can develop within a few days. KNOW YOUR RESPONSIBILITIES It is important to know exactly how much and how often to take the opioid pain medications you are prescribed. Never take opioids in higher amounts or more often than prescribed. Do not combine opioids with alcohol or other drugs that cause drowsiness, such as benzodiazepines, also known as benzos, including diazepam and alprazolam, muscle relaxants or sleep aids. Never sell or share prescription opioids. This is illegal. Store opioids in a secure place and out of reach of others (including children, family, friends and visitors). The last page of this document has been signed and retained as a CHART COPY. Signatures Patient Education Materials Medication Leaflets My discharge plan and instructions have been reviewed and explained to me and I,LAVINIA DURAND understand my current condition and have read and understand these discharge instructions. I have received a written copy of the plan/instructions. If I have questions, I am aware that I should contact my doctor. 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: ____ Date/Time: Relationship to Patient: __ Witness Name/Signature: Date/Time: [facility] 07-27-2024 Summary of LAVINIA Munson :1940 Visit Date:07/27/2024 Your Visit Summary Your Diagnosis Bladder cancer Cancer of overlapping sites of bladder Tests Performed .Auto Differential .Estimated Glomerular Filtration Rate .Neutro Absolute CBC CMP Cortisol Level LDH TSH Your Care Team Attending Physician - ROSEANNE BACA MD Primary Care Physician - SHIRA ROY MD Vitals Temperature (Oral) 97.3 F (36.3 C) Heart Rate 71 Respiratory Rate 18 Blood Pressure 138/68 Height 60.00 in (152.4 cm) Weight 101.43 lb (46 kg) BMI 19.81 What to do next Instructions From Your Doctor You have received the following therapy today: Immunotherapy Call your physician if any of the following problems occur: Nausea/Vomiting Mouth Sores Diarrhea Fever Prolonged bleeding or easy bruising Pain or discomfort at the injection site Scheduled Follow-Up Appointments Appointment Type When With Where Contact Information StatusURO SUPERVISOR SPECIAL EDUCATION 07/27/2024 02:10 PM EDT SANCHEZ PEACOCK MD Urology Confirmed HEM ONC OV Follow Up w/KENDY Active Treat 08/17/2024 09:45 AM EDT CHRISTAL LIMA APRN-DRAPERY SUPERVISOR [facility] Confirmed Medications What How Much When Why Instructions Unchanged acetaminophen (Tylenol 325 mg oral tablet) 2 tab(s) by mouth Every 4 hours as needed for as needed for pain Unchanged atorvastatin (atorvastatin 10 mg oral tablet) TAKE 1 TABLET BY MOUTH EVERY DAY Unchanged bimatoprost ophthalmic (Lumigan 0.01% ophthalmic solution) 1 Drops Both eyes Once a day (in the evening) Unchanged calcitriol (calcitriol 0.25 mcg oral capsule) 1 cap by mouth Once a day Unchanged carvedilol (carvedilol 25 mg oral tablet) TAKE 2 TABLETS BY MOUTH TWICE DAILY Unchanged cloNIDine (cloNIDine 0.2 mg oral tablet) 1 tab(s) by mouth Every 6 hours as needed for Anxiety Unchanged gabapentin (gabapentin 100 mg oral capsule) 2 cap by mouth Two (2) times a day Unchanged hydrALAZINE (hydrALAZINE 50 mg oral tablet) 1 tab(s) by mouth Three (3) times a day Unchanged latanoprost ophthalmic (latanoprost 0.005% ophthalmic solution) INSTILL ONE DROP IN BOTH EYES AT BEDTIME Unchanged levothyroxine (levothyroxine 25 mcg (0.025 mg) oral tablet) 1 tab(s) by mouth Daily Friday through Friday Unchanged lisinopril (lisinopril 20 mg oral tablet) TAKE 1 TABLET BY MOUTH TWICE DAILY Unchanged loperamide (Imodium 2 mg oral capsule) by mouth Every 4 hours as needed for as needed for loose stool Unchanged loratadine (loratadine 10 mg oral capsule) 1 cap by mouth Once a day Unchanged mirtazapine (mirtazapine 7.5 mg oral tablet) TAKE 1 TABLET BY MOUTH EVERY DAY AT BEDTIME Unchanged multivitamin (Multiple Vitamins oral tablet) 1 tab(s) by mouth Daily at bedtime Unchanged ondansetron (ondansetron 8 mg oral tablet, disintegrating) 1 tab(s) by mouth Two (2) times a day as needed for Nausea/Vomiting Unchanged pantoprazole (pantoprazole 40 mg oral enteric coated tablet) 1 tab(s) by mouth Once a day before a meal Unchanged predniSONE (predniSONE 20 mg oral tablet) 1 tab(s) by mouth Once a day Cancer of overlapping sites of bladder Duration: 4 Days Unchanged senna (senna (sennosides) 8.6 mg oral tablet) 2 tab(s) by mouth Daily at bedtime as needed for as needed for constipation Unchanged sucralfate (sucralfate 1 g oral tablet) 1 tab(s) by mouth Two (2) times a day Test Results .Auto Differential (07/27/2024) Neutrophil % - 69.2 % Lymphocyte % - 19.4 % Monocyte % - 8.3 % Eosinophil % - 2.5 % Basophil % - 0.6 % Lymphocyte, Absolute - 0.9 10^3/mcL Monocyte, Absolute - 0.4 10^3/mcL Eosinophil, Absolute - 0.1 10^3/mcL Basophil, Absolute - 0.0 10^3/mcL .Estimated Glomerular Filtration Rate (07/27/2024) Estimated Glomerular Filtration Rate - 10 ml/min/1.73sqm .Neutro Absolute (07/27/2024) Neutrophil, Absolute - 3.3 10^3/mcL CBC (07/27/2024) WBC - 4.8 10^3/mcL RBC - 3.33 10^6/mcL Hgb - 9.5 G/dL Hct - 29.3 % MCV - 87.9 fL MCH - 28.6 pg MCHC - 32.5 G/dL RDW - 17.0 % Platelet - 179 10^3/mcL MPV - 9.1 fL CMP (07/27/2024) Glucose Level - 130 mg/dL Sodium Level - 136 mEq/L Potassium Level - 4.4 mEq/L Chloride - 98 mEq/L CO2 - 31 mEq/L Electrolyte Balance - 7.0 mEq/L BUN - 33.0 mg/dL Creatinine Lvl (s) - 4.24 mg/dL BUN/Creatinine Ratio - 7.8 ratio Calcium Lvl - 9.0 mg/dL Total Protein - 5.5 G/dL Albumin Level - 2.4 G/dL Globulin - 3.1 G/dL A/G Ratio - 0.8 ratio Bili Total - <0.20 mg/dL Alk Phos - 75 U/L AST/SGOT - 12 U/L ALT/SGPT - <7 U/L Cortisol Level (07/27/2024) Cortisol Level - 16.0 mcg/dL LDH (07/27/2024) LDH - 149 U/L TSH (07/27/2024) TSH - 2.820 mIU/mL Allergies Humira Additional Information VACCINATE! IT SAVES LIVES! Members of the community who have not yet received the COVID-19 vaccine and would like to receive it can visit one of [facility] vaccine clinics. There are many vaccine clinic locations within the [facility]. For locations and available times, please visit [email or web address] /. It is important to note that some COVID mobile vaccine clinics are held outdoors and may be canceled in rainy or stormy conditions. To learn more about pediatric vaccinations (ages 5-11), we invite you to visit the [employer] webpage. https://[email or web address]/page [email or web address] -Asked-Questions.html To learn more about the COVID-19 vaccine, we invite you to visit the CDC website for a list of frequently asked questions. https://www.cdc.gov/coronavirus/201 9-ncov/vaccines/faq.html [facility] Patient Portal Access Instructions: Stay connected with your healthcare team and access your personal medical information anytime with the [facility] Patient Portal.If you would like a full copy of your medical records, please contact the [facility] Medical Records Department, Friday through Friday between 8a.m. and 4:30p.m. Please follow the directions below to access the portal: 1.Access the email account you provided upon registration to the hospital.2.Look for an invitation email from [facility].3.Open the email and access the invitation link: Accept Invitation to [facility].Fill in the required diaz to create your account. Sign into [email or web address] with your username and password that you created in the above steps to stay up to date. You can then view a summary of results, a summary of your visits, and the ability to download your summaries to your computer or send the information securely to a physician. Remember that your healthcare information is confidential, so carefully consider who you will allow to register on the [facility] Patient Portal for access to your information. You can also access the [employer] Patient Portal on the [employer] carol ann. Simply click on Health Records under Health Data and then click on the [employer] logo. HOW TO SAFELY DISPOSE OF PRESCRIPTION MEDICATIONS Please use one of the following methods to safely dispose of your unused medications. 1.Use a drug disposal kit: the drug disposal pouch allows you to safely discard your old and unused drugs. Ask your nurse to give you one when you are discharged.2.Visit a local take-back location: Many local pharmacies and police departments have programs that collect old and unwanted prescription drugs. Call your local pharmacy or go to http://[employer].Sophia Search/2Y8Cm2y to find one close to you.3.Make use of household items: Use cat litter or old coffee grounds to dispose medications if other options are not available. Mix your drugs with these household products, seal them in an airtight container and throw it into the garbage. Call [facility]: [phone] to be sure your drugs can be disposed of in this way. Some medicines may require a different approach.4.Never flush your medications down the toilet. IF YOU HAVE BEEN PRESCRIBED AN OPIOID FOR PAIN If you have been prescribed an opioid (such as hydrocodone, oxycodone or morphine), it is critical to understand the possible side effects and risks of opioid pain medications. Even when taken as directed, opioids can have several side effects including: Tolerance, meaning you might need to take more of a medication for the same pain relief. Nausea, vomiting and/or constipation. Sleepiness, dizziness, dry mouth, confusion, depression or itching. Physical dependence, meaning you have withdrawal symptoms when a medication is stopped, can develop within a few days. KNOW YOUR RESPONSIBILITIES It is important to know exactly how much and how often to take the opioid pain medications you are prescribed. Never take opioids in higher amounts or more often than prescribed. Do not combine opioids with alcohol or other drugs that cause drowsiness, such as benzodiazepines, also known as benzos, including diazepam and alprazolam, muscle relaxants or sleep aids. Never sell or share prescription opioids. This is illegal. Store opioids in a secure place and out of reach of others (including children, family, friends and visitors). The last page of this document has been signed and retained as a CHART COPY. Signatures Patient Education Materials Medication Leaflets My discharge plan and instructions have been reviewed and explained to me and I,LAVINIA DURAND understand my current condition and have read and understand these discharge instructions. I have received a written copy of the plan/instructions. If I have questions, I am aware that I should contact my doctor. 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: ____ Date/Time: Relationship to Patient: __ Witness Name/Signature: Date/Time: [facility] 07-08-2024 Telephone encount er Note Called patient made apt [facility] 07-08-2024 Miscellaneous Notes Formattin g of this note might be different from the original. 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 Tests Performed .Auto Differential .Estimated Glomerular Filtration Rate .Neutro Absolute CBC CMP Cortisol Level Ferritin Iron Studies LDH TSH Your Care Team Attending Physician - ROSEANNE BACA MD Primary Care Physician - SHIRA ROY MD Vitals Temperature (Oral) 97.3 F (36.3 C) Heart Rate 65 Blood Pressure 153/53 Height 60.00 in (152.4 cm) Weight 106.28 lb (48.2 kg) BMI 20.75 What to do next Instructions From Your Doctor You have received the following therapy today: Chemotherapy/Immunotherapy Call your physician if any of the following problems occur: Nausea/Vomiting Mouth Sores Diarrhea Fever Prolonged bleeding or easy bruising Pain or discomfort at the injection site Scheduled Follow-Up Appointments Appointment Type When With Where Contact Information StatusINF/OSP Labwork 07/27/2024 10:00 AM EDT Infusion Therapy Confirmed HEM ONC OV Follow Up w/ Active Treatme 07/27/2024 10:40 AM EDT ROSEANNE BACA MD Hematology and Oncology Confirmed INF Chemo: Infusion 120 min (2 hours) 07/27/2024 11:15 AM EDT Infusion Therapy Confirmed URO SUPERVISOR SPECIAL EDUCATION 07/27/2024 02:10 PM EDT SANCHEZ PEACOCK MD Urology Confirmed Medications What How Much When Instructions Changed carvedilol (carvedilol 25 mg oral tablet) TAKE 2 TABLETS BY MOUTH TWICE DAILY Changed levothyroxine (levothyroxine 25 mcg (0.025 mg) oral tablet) 1 tab(s) by mouth Daily Friday through Friday Unchanged acetaminophen (Tylenol 325 mg oral tablet) 2 tab(s) by mouth Every 4 hours as needed for as needed for pain Unchanged acetaminophen-hydrocodone (acetaminophen-hydrocodone 325 mg-5 mg oral tablet) TAKE 1 TABLET BY MOUTH EVERY 6 HOURS NEEDED FOR PAIN Unchanged amLODIPine (amLODIPine 5 mg oral tablet) 1 tab(s) by mouth Two (2) times a day Unchanged atorvastatin (atorvastatin 10 mg oral tablet) TAKE 1 TABLET BY MOUTH EVERY DAY Unchanged bimatoprost ophthalmic (Lumigan 0.01% ophthalmic solution) 1 Drops Both eyes Once a day (in the evening) Unchanged calcitriol (calcitriol 0.25 mcg oral capsule) 1 cap by mouth Once a day Unchanged cloNIDine (cloNIDine 0.2 mg oral tablet) 1 tab(s) by mouth Every 6 hours as needed for Anxiety Unchanged gabapentin (gabapentin 100 mg oral capsule) 2 cap by mouth Two (2) times a day Unchanged hydrALAZINE (hydrALAZINE 50 mg oral tablet) 1 tab(s) by mouth Two (2) times a day Unchanged latanoprost ophthalmic (latanoprost 0.005% ophthalmic solution) INSTILL ONE DROP IN BOTH EYES AT BEDTIME Unchanged lisinopril (lisinopril 20 mg oral tablet) TAKE 1 TABLET BY MOUTH TWICE DAILY Unchanged loperamide (Imodium 2 mg oral capsule) by mouth Every 4 hours as needed for as needed for loose stool Unchanged loratadine (loratadine 10 mg oral capsule) 1 cap by mouth Once a day Unchanged mirtazapine (mirtazapine 7.5 mg oral tablet) TAKE 1 TABLET BY MOUTH EVERY DAY AT BEDTIME Unchanged multivitamin (Multiple Vitamins oral tablet) 1 tab(s) by mouth Daily at bedtime Unchanged ondansetron (ondansetron 8 mg oral tablet, disintegrating) 1 tab(s) by mouth Two (2) times a day Unchanged pantoprazole (pantoprazole 40 mg oral enteric coated tablet) 1 tab(s) by mouth Once a day before a meal Unchanged senna (senna (sennosides) 8.6 mg oral tablet) 2 tab(s) by mouth Daily at bedtime as needed for as needed for constipation Unchanged sucralfate (sucralfate 1 g oral tablet) 1 tab(s) by mouth Two (2) times a day Test Results .Auto Differential (07/06/2024) Neutrophil % - 64.5 % Lymphocyte % - 21.2 % Monocyte % - 9.4 % Eosinophil % - 4.5 % Basophil % - 0.4 % Lymphocyte, Absolute - 0.9 10^3/mcL Monocyte, Absolute - 0.4 10^3/mcL Eosinophil, Absolute - 0.2 10^3/mcL Basophil, Absolute - 0.0 10^3/mcL .Estimated Glomerular Filtration Rate (07/06/2024) Estimated Glomerular Filtration Rate - 10 ml/min/1.73sqm .Neutro Absolute (07/06/2024) Neutrophil, Absolute - 2.6 10^3/mcL CBC (07/06/2024) WBC - 4.1 10^3/mcL RBC - 2.98 10^6/mcL Hgb - 9.0 G/dL Hct - 27.4 % MCV - 91.9 fL MCH - 30.3 pg MCHC - 32.9 G/dL RDW - 17.6 % Platelet - 139 10^3/mcL MPV - 9.0 fL CMP (07/06/2024) Glucose Level - 159 mg/dL Sodium Level - 137 mEq/L Potassium Level - 4.3 mEq/L Chloride - 103 mEq/L CO2 - 34 mEq/L Electrolyte Balance - 0.0 mEq/L BUN - 26.0 mg/dL Creatinine Lvl (s) - 4.10 mg/dL BUN/Creatinine Ratio - 6.3 ratio Calcium Lvl - 9.2 mg/dL Total Protein - 4.9 G/dL Albumin Level - 2.3 G/dL Globulin - 2.6 G/dL A/G Ratio - 0.9 ratio Bili Total - <0.20 mg/dL Alk Phos - 84 U/L AST/SGOT - 12 U/L ALT/SGPT - 9 U/L Cortisol Level (07/06/2024) Cortisol Level - 12.1 mcg/dL Ferritin (07/06/2024) Ferritin - 613.5 ng/mL Iron Studies (07/06/2024) Iron - 39 mcg/dL TIBC - 228 mcg/dL Iron Sat - 17 % LDH (07/06/2024) LDH - 156 U/L TSH (07/06/2024) TSH - 3.834 mIU/mL Allergies Humira Additional Information VACCINATE! IT SAVES LIVES! Members of the community who have not yet received the COVID-19 vaccine and would like to receive it can visit one of [facility] vaccine clinics. There are many vaccine clinic locations within the [facility]. For locations and available times, please visit [email or web address]. It is important to note that some COVID mobile vaccine clinics are held outdoors and may be canceled in rainy or stormy conditions. To learn more about pediatric vaccinations (ages 5-11), we invite you to visit the [facility] webpage. [email or web address] To learn more about the COVID-19 vaccine, we invite you to visit the CDC website for a list of frequently asked questions. https://www.cdc.gov/coronavirus/201 9-ncov/vaccines/faq.html [facility] Patient Portal Access Instructions: Stay connected with your healthcare team and access your personal medical information anytime with the [facility] Patient Portal.If you would like a full copy of your medical records, please contact the [facility] Medical Records Department, Friday through Friday between 8a.m. and 4:30p.m. Please follow the directions below to access the portal: 1.Access the email account you provided upon registration to the hospital.2.Look for an invitation email from [facility].3.Open the email and access the invitation link: Accept Invitation to [facility].Fill in the required diaz to create your account. Sign into [email or web address] with your username and password that you created in the above steps to stay up to date. You can then view a summary of results, a summary of your visits, and the ability to download your summaries to your computer or send the information securely to a physician. Remember that your healthcare information is confidential, so carefully consider who you will allow to register on the [facility] Patient Portal for access to your information. You can also access the [facility] Patient Portal on the [employer]. Simply click on Health Records under Health Data and then click on the [employer] logo. HOW TO SAFELY DISPOSE OF PRESCRIPTION MEDICATIONS Please use one of the following methods to safely dispose of your unused medications. 1.Use a drug disposal kit: the drug disposal pouch allows you to safely discard your old and unused drugs. Ask your nurse to give you one when you are discharged.2.Visit a local take-back location: Many local pharmacies and police departments have programs that collect old and unwanted prescription drugs. Call your local pharmacy or go to http://[employer].Sophia Search/3I5Ez0o to find one close to you.3.Make use of household items: Use cat litter or old coffee grounds to dispose medications if other options are not available. Mix your drugs with these household products, seal them in an airtight container and throw it into the garbage. Call [facility]: [phone] to be sure your drugs can be disposed of in this way. Some medicines may require a different approach.4.Never flush your medications down the toilet. IF YOU HAVE BEEN PRESCRIBED AN OPIOID FOR PAIN If you have been prescribed an opioid (such as hydrocodone, oxycodone or morphine), it is critical to understand the possible side effects and risks of opioid pain medications. Even when taken as directed, opioids can have several side effects including: Tolerance, meaning you might need to take more of a medication for the same pain relief. Nausea, vomiting and/or constipation. Sleepiness, dizziness, dry mouth, confusion, depression or itching. Physical dependence, meaning you have withdrawal symptoms when a medication is stopped, can develop within a few days. KNOW YOUR RESPONSIBILITIES It is important to know exactly how much and how often to take the opioid pain medications you are prescribed. Never take opioids in higher amounts or more often than prescribed. Do not combine opioids with alcohol or other drugs that cause drowsiness, such as benzodiazepines, also known as benzos, including diazepam and alprazolam, muscle relaxants or sleep aids. Never sell or share prescription opioids. This is illegal. Store opioids in a secure place and out of reach of others (including children, family, friends and visitors). The last page of this document has been signed and retained as a CHART COPY. Signatures Patient Education Materials Medication Leaflets My discharge plan and instructions have been reviewed and explained to me and I,LAVINIA DURAND understand my current condition and have read and understand these discharge instructions. I have received a written copy of the plan/instructions. If I have questions, I am aware that I should contact my doctor. 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: ____ Date/Time: Relationship to Patient: __ Witness Name/Signature: Date/Time: [facility] 06-10-2024 Evaluation note Diagnosis Onset Date Resolution Gastric ulcer acute June 102024 8:54am Loose stools acute May 8:54am Anemia acute June 29 11:20am Bladder cancer acute June 29, 2024 11:20am Hematuria acute June 29 11:20am [facility] Work Phone: [phone] [facility]01-09-2025 Chief complaint+Reason for visit Narrative* Chief Complaint Admit Date ONCOLOGY REFERRAL May 06, 2024 12 :06pm AE CHF May 15, 2024 5 :08am AE CHF May 16, 2024 1 2:06pm AE CHF May 17, 2024 1 0:49am AE CHF May 17, 2024 1 0:53am AE CHF May 17, 2024 1 2:04pm AE CHF May 18, 2024 1 2:10pm AE CHF May 18, 2024 3 :25pm AE CHF May 19, 2024 7 :55am AE CHF May 19, 2024 1 :21pm LAB WORK May 20, 2024 5 :00am ADMISSION EXAM May 20, 2024 4 :43pm LAB WORK May 24, 2024 4 :00am NEW CONCERN May 24, 2024 4 :46pm 1 UNIT PRBC May 25, 2024 1 1:22am ADMISSION EXAM May 25, 2024 2 :56pm LAB WORK May 26, 2024 5 :00am LAB WORK May 31, 2024 5 :00am 1 UNIT PRBC June 04, 2024 7 :56am LABWORK June 07, 2024 5:00am Hospital FU June 10, 2024 8:54am LABWORK June 11, 2024 9:00am LAB WORK June 14, 2024 5:00am 1 UNIT PRBC June 16, 2024 7:55am LAB WORK June 18, 2024 5:00am LABWORK June 21, 2024 5:00am LAB WORK June 23, 2024 5:00am LABWORK June 28, 2024 5:00 am Discuss Embolization June 29, 2024 11: 20am 1 UNIT PRBC June 30, 2024 7:55 am RETIREMENT LAB WORK July 01, 2024 4: 00am LABWORK July 05, 2024 5:0 0am MONTHLY EXAM July 08, 2024 2:0 4pm LABWORK July 12, 2024 5:0 0am LABWORK July 19, 2024 5:0 0am NEW CONCERN July 21, 2024 4:4 5pm Reason for Visit Admit Date Accelerated hypertension May 06 12:06pm Bladder cancer May 06, 2024 12 :06pm Shingles May 06, 2024 12 :06pm Acute hypoxic respiratory failure Januar y 2024 5:08am Anemia May 15, 2024 5 :08am Bilateral pleural effusion May 15, 2024 5:08am Elevated troponin May 15, 2024 5 :08am ESRD on dialysis May 15, 2024 5 :08am Hematuria May 15, 2024 5 :08am Lactic acidosis May 15, 2024 5 :08am LV dysfunction May 15, 2024 5 :08am Metastatic renal cell carcinoma May 15, 2024 5:08am Pleural effusion May 15, 2024 5 :08am Thyroid nodule May 15, 2024 5 :08am Type 2 myocardial infarction April 5:08am Acute on chronic diastolic CHF (congesti ve heart failure) May 15, 2024 5:08am CKD (chronic kidney disease) stage 5, GFR less than 15 ml/min May 15, 2024 5:08am Hypertension May 15, 2024 5 :08am Congestive heart failure (CHF) April 282024 5:08am Respiratory insufficiency May 15, 2024 5:08am Gastric ulcer June 10, 2024 8:54am Loose stools June 10, 2024 8:54am Anemia June 29, 2024 11:2 0am Bladder cancer June 29, 2024 11:2 0am Hematuria June 29, 2024 11:2 0am [facility] Work Phone: 1(751) 348-820101-09-2025 Evaluation note* Diagnosis Onset Date Resolution Status Admit Date Accelerated hypertension acute May 06, 2024 12:06pm Bladder cancer acute April 12:06pm Shingles acute May 06, 025 12:06pm Acute hypoxic respiratory failure acute May 15 5:08am Anemia acute May 15, 2024 5:08am Bilateral pleural effusion acute May 15, 2024 5:08am Elevated troponin acute May 15, 2024 5:08am ESRD on dialysis acute May 15, 2024 5:08am Hematuria acute May 15, 2024 5:08am Lactic acidosis acute April 282024 5:08am LV dysfunction acute May 152024 5:08am Metastatic renal cell carcinoma acute May 15 5:08am Pleural effusion acute May 15, 2024 5:08am Thyroid nodule acute May 152024 5:08am Type 2 myocardial infarction acute May 15, 2024 5:08am Acute on chronic diastolic C HF (congestive heart failure) chronic Janua 2024 5:08am CKD (chronic kidney disease) stage 5, GFR less than 15 ml/min chronic May 15 5:08am Hypertension chronic April 5:08am Congestive heart failure (CHF) resol vishal May 15, 2024 5:08am Respiratory insufficiency resolved May 15, 2024 5:08am Gastric ulcer acute June 102024 8:54am Loose stools acute May 8:54am Anemia acute June 29 11:20am Bladder cancer acute June 29, 2024 11:20am Hematuria acute June 29 11:20am [facility] Work Phone: [phone]) 101-610209-28-2024 [facility]09-18-2024 [facility]05-23-2024 Miscellaneous Notes* Nursing Notes - Jada Caldwell RN - 09/18/2023 7:15 PM EDT Pt discharge to [facility]. Pt left via ambulance and with all personal belongings. PIV removed. * Nursing Notes - Fifi Freitas RN - 09/18/2023 4:16 PM EDT Patient is scheduled for hemodialysis tx tomorrow @ 0730 am. (Please note the time may change due to emergencies). Please call #[phone] for conflicts or questions. * Nursing Notes - Jada Caldwell RN - 09/18/2023 4:12 PM EDT Called [facility] and gave reort to Faye BAUER. Faye asked me to fax pt ELOY and AVS to [phone]. * Nursing Notes - Jada Caldwell RN - 09/18/2023 3:34 PM EDT Faxed AVS and ELOY to [facility]. * Plan of Care - Raquel Zarco MD - 09/18/2023 10:42 AM EDT Brief GI Note: Duodenal cytology from EUS showed: A. DUODENAL SUBMUCOSAL LESION, FNA (CYTOLOGY AND CELL BLOCK): FINAL DIAGNOSIS: Leiomyoma Note: By immunohistochemistry, the tumor cells are positive for SMA and H- Caldesmon and are negative for DOG-1, CD117, and S-100. PLAN: - patient will need repeat EUS in 1 year for surveillance of size. Raquel Zarco MD Division of Gastroenterology, Hepatology, and Nutrition Clinical Fellow PGY-5 Pager: [phone] * Nursing Notes - Theron Middleton RN - 09/17/2023 2:50 PM EDT 3 hr HD treatment completed without complication. 1 kg of fluid removed. Treatment was tolerated well and VS were stable throughout. Fistula worked well and with appropriate pressures, but arterial access held for 25 minutes prior to hemostasis, Venous access held 10 mins. Reported off to primary RN 09/17/23 1400 Tx Assessment/Safety (Pre/Post) Blood Liters Processed (BLP) 71.1 Dialyzer Clearance streaked Tolerance to Dialysis Procedure well Treatment Assessment Fluid Removed/mL: 1300 ml Hemodialysis, Lines Secure/Site Visible Yes Hemodialysis, Comments other (see comments) (Off circ, treatment completed) Vital Signs Temp 98.2 F (36.8 C) Temp source Oral Pulse (Heart Rate) 60 Heart Rate Source Monitor Resp Rate 18 BP 190/81 MAP (mmHg) (!) 117 mmHg BP Method Automatic BP Location Right arm BP Position Lying O2 Sat (%) 100 % O2 Device room air ECG/Rhythm Rhythm sinus rhythm Post HD Line/AV Access Site Care Arterial Needle - site held (min) 25 minutes Venous Needle - site held (min) 10 minutes Treatment Record Stop Time 1400 Fluid Volume Removal 1300 Total Fluid Given 300 LOC/Significant Event Significant Event Hemodialysis treatment completed Post-Hemodialysis Assessment Report given to LIZETTE Elias * Plan of Care - Che Haddad PT - 09/17/2023 1:48 PM EDT Problem: PT - General Goals Goal: Pt will perform bed mobility within precautions at independence in order to improve functional mobility and safety. Outcome: Progressing Goal: Pt will perform transfers within precautions with independence with without an assistive device in order to improve functional mobility and safety. Outcome: Progressing Goal: Pt will ambulate 100 feet within precautions with least restrictive device at independence toimprove ability to navigate home environment. Outcome: Progressing * Nursing Notes - Jada Caldwell RN - 09/16/2023 4:25 PM EDT Pt BP 209/81. Pt has no PRN BP med. MD [place] notified. * Plan of Care - Rebecca Duke RN - 09/16/2023 12:41 AM EDT Problem: Adult Inpatient Plan of Care Goal: Plan of Care Review Outcome: Progressing Goal: Patient-Specific Goal (Individualized) Outcome: Progressing Goal: Absence of Hospital-Acquired Illness or Injury Outcome: Progressing Goal: Optimal Comfort and Wellbeing Outcome: Progressing Goal: Readiness for Transition of Care Outcome: Progressing Problem: Fall Injury Risk Goal: Fall/Trauma/Injury Risk: Absence of Trauma/Injury/Falls Description: Patient will demonstrate the desired outcomes. Outcome: Progressing Goal: Knowledge of risk factors/behavior modification Description: Knowledge of risk factors/behavior modification for fall/injury prevention Outcome: Progressing Problem: Malnutrition Goal: Improved Nutritional Intake Outcome: Progressing * Nursing Notes - Rebecca Duke RN - 09/15/2023 9:16 PM EDT Pt's evening BG check 396. 8 units insulin lispro given, per scheduled sliding scale. Dillon BRENNAN, notified. 21:15: Upon recheck, BG 451. Dillon notified. One-time dose of 20 units insulin lispro ordered. 22:20: Upon re-check, following 20 units lispro, BG is still 406. Dillon BRENNAN, updated and Carmine GAVIRIA, notified. Additional 10 units insulin lispro ordered. 00:00: BG re-check 295. Dillon and Carmine, notified. 6 units lispro ordered. * Plan of Care - Raquel Zarco MD - 09/15/2023 5:41 PM EDT Brief GI Note/Post-Procedure Note: Patient with EGD/EUS completed today with results as below: Impression: EGD/EUS Findings: - 23 mm x 13 mm subepithelial nodule in the distal 2nd part of the duodenum (not involving the ampulla, ampulla was 3-5 cm proximal). The lesion was hypoechoic and arising from the fourth layer of the duodenal wall (muscularis propria). DDx would include Stromal tumor (e.g. GIST), NET, metastatic lesion, etc. FNB x 5 performed with cytopathology confirming adequate cellularity. Final cytopathology results pending. - Multiple cysts in the pancreas with the largest measuring 13mm in size. The main pancreatic duct was non-dilated. No worrisome features for the cysts. 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 - Otherwise no mass in the entire pancreas. - CBD was unremarkable. - Ampulla was normal. - No mass seen in the left lobe of the liver. - LA Grade A reflux esophagitis with no bleeding. - Chronic gastritis, characterized by erythema and granularity. - Normal ampulla. 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 Recommendation: - [facility] patient to [facility] for [facility] care. - Advance diet as tolerated today. - Continue present medications. - Await cytology results. - Given her age, comorbidities, and decreased functional status I would not recommend surveillance imaging for pancreas cysts. - GI will sign off. Please do not hesitate to reach out to GI team with any additional questions orconcerns. Raquel Zarco MD Division of Gastroenterology, Hepatology, and Nutrition Clinical Fellow PGY-5 Pager: [phone] * Plan of Care - Char Dias RD - 09/15/2023 5:32 PM EDT Problem: Malnutrition Goal: Improved Nutritional Intake Outcome: Progressing Nutrition Recommendation and Plan of Care Continue current diet order, if K improves and remains <5 consistently consider liberalizing to Carb Controlled or even Regular; encourage meal selections; 2. Will provide vanilla/zheng Nepro (425 kcal, 19g PRO each) TID with all meals 3. Agree with VIRT-CAP 4.Agree with appetite stimulant 5. Will monitor po intake/tolerance, nutrition related labs, weights trends, GI function, and otherinformation for potential change in nutrition POC 6. RD to follow * Plan of Care - Angeli Kelsey RN - 09/15/2023 2:11 PM EDT Problem: Adult Inpatient Plan of Care Goal: Optimal Comfort and Wellbeing Outcome: Progressing * Nursing Notes - Josiah Ahn RN - 09/15/2023 1:32 PM EDT During Lavinia Durand's Dialysis Treatment on 09/15/2023 the following interventions for Prevent/Manage Dialysis Procedure Complication were completed: Ensure system correctly primed, connections secure, and air detector alarms engaged. Verify correct machine setting with physician order. Assure proper dialysate conductivity and water quality prior to starting treatment Closely monitor patient throughout for tolerance to treatment During Lavinia Durand's Dialysis Treatment on 09/15/2023 the following interventions for Monitoring and Managing Fluid Electrolyte/Acid Base Balance were completed: Monitor intake and output. Monitor daily weight. Enforce fluid restriction. Manage electrolyte shifts and resulting effect. Assess presence/location of edema. During Lavinia Durand's Dialysis Treatment on 09/15/2023 the following interventions to Protect/Monitor Dialysis AV Access Site were completed: Inspect and monitor Dialysis AV access site Educate patient on home care, and reportable symptoms Avoid using arm with dialysis access site for IV access, phlebotomy, injections or BP readings. 09/15/23 1042 Tx Assessment/Safety (Pre/Post) Blood Liters Processed (BLP) 65.8 Transport Modality bed Dialyzer Clearance moderate Tolerance to Dialysis Procedure Tolerated tx well, 1L UF removed. C profile during tx with sustained high BPs. Treatment Assessment UF Goal/mL: 1400 Fluid Removed/mL: 1400 ml Profile C Hemodialysis, Lines Secure/Site Visible Yes Hemodialysis, Safety Factors vital signs stable Vital Signs Pulse (Heart Rate) 62 Resp Rate 18 BP (!) 201/86 MAP (mmHg) (!) 123 mmHg O2 Sat (%) 100 % ECG/Rhythm Lead Monitored Lead II Rhythm sinus rhythm Post HD Line/AV Access Site Care Arterial Needle - site held (min) 10 minutes Venous Needle - site held (min) 10 minutes Treatment Record Stop Time 1042 Fluid Volume Removal 1400 Total Fluid Given 400 Returning to Patient Care Unit Transport Returning to Patient Care Unit Transport yes Testing Complete yes NPO yes Changes In Status no [place] Procedure Orders Written no Sending RN/Tech Name Josiah BAUER Cognitive/Neuro/Behavioral WDL Cognitive/Neuro/Behavioral WDL ex Mood/Behavior flat affect;hypoactive (quiet, withdrawn) Cardiovascular WDL Cardiac WDL ex;heart sounds Heart Sounds murmur detected Peripheral Neurovascular WDL Peripheral Neurovascular WDL WDL Respiratory WDL Respiratory WDL ex;breath sounds Breath Sounds All Lung Diaz Breath Sounds diminished LOC/Significant Event RASS (Meneses Agitation-Sedation Scale) 0-->alert and calm Significant Event HD completed. * Plan of Care - Verónica Salazar RN - 09/15/2023 2:44 AM EDT Problem: Adult Inpatient Plan of Care Goal: Plan of Care Review Outcome: Progressing Goal: Patient-Specific Goal (Individualized) Outcome: Progressing Goal: Absence of Hospital-Acquired Illness or Injury Outcome: Progressing * Plan of Care - Annelise Tay RN - 09/13/2023 9:34 AM EDT Problem: Fall Injury Risk Goal: Fall/Trauma/Injury Risk: Absence of Trauma/Injury/Falls Description: Patient will demonstrate the desired outcomes. Outcome: Progressing * Nursing Notes - Ana Santiago RN - 09/13/2023 12:17 AM EDT BBG 234. MD notified. Per MD no insulin admin needed at this time. Resume normal BBG check scheduleAC/HS. * Plan of Care - Ana Santiago RN - 09/12/2023 11:21 PM EDT Problem: Adult Inpatient Plan of Care Goal: Plan of Care Review 09/12/20232320 by Ana Santiago RN Outcome: Progressing 09/12/20232320 by Ana Santiago RN Outcome: Progressing Problem: Fall Injury Risk Goal: Fall/Trauma/Injury Risk: Absence of Trauma/Injury/Falls Description: Patient will demonstrate the desired outcomes. Outcome: Progressing * Nursing Notes - Jyoti Jackson RN - 09/12/2023 3:32 PM EDT 09/12/23 1330 Tx Assessment/Safety (Pre/Post) Consent Obtained yes Less Than 30 Days Hepatitis B Surface Antigen Status Negative Hepatitis B Surface Antigen Resulted From [facility] lab Date Hepatitis B Surface Antigen Status Obtained 09/12/23 Post Procedure Bleach Disinfectant? No Blood Liters Processed (BLP) 61.3 Transport Modality bed Dialyzer Clearance moderate Tolerance to Dialysis Procedure well Treatment Assessment Blood Flow Rate (BFR) mL/min 350 Dialysate Flow Rate (DFR) mL/min 800 mL/min Arterial Pressure (AP) mmHg -90 Venous Pressure (TOOL FILER HAND) mmHg 200 Transmembrane Pressure (TMP) mmHg 80 UF Goal/mL: 1500 Machine Time 0 Ultrafiltration Rate (UFR) mL/hr 300 Fluid Removed/mL: 1500 ml Machine Temperature 96.8 F (36 C) Crit Line - Hematocrit 32.7 % Crit Line - Hemoglobin 11.1 g/dL Crit Line - Blood Volume % -10.5 % Crit Line - SvO2 97.7 % Profile B Hemodialysis, Lines Secure/Site Visible Yes Hemodialysis, Safety Factors access site visible and intact;vital signs stable Hemodialysis, Comments patient tolerating treatment well;resting with stable VS, no complaints (HD completed) Vital Signs Temp 97.9 F (36.6 C) Temp source Oral Pulse (Heart Rate) 70 Resp Rate 18 BP 173/79 MAP (mmHg) (!) 113 mmHg O2 Sat (%) 99 % O2 Device room air ECG/Rhythm Lead Monitored Lead II Rhythm sinus rhythm Hemodialysis Peripheral AV Access 09/10/232016 Placement Date/Time: 09/10/232016 Present On Admission : yes Location: upper arm, left Assessment bruit audible, strong;thrill palpable, strong Unsuccessful Cannulation Attempts 0 Site Preparation/Maintenance occlusive dressing applied Site Signs/Symptoms dressing dry and intact;site asymptomatic Securement sterile tape strips, secured with Phlebitis 0-->no symptoms Infiltration 0-->no symptoms Post HD Line/AV Access Site Care Arterial Needle - site held (min) 20 minutes Venous Needle - site held (min) 5 minutes Treatment Record Stop Time 1330 Fluid Volume Removal 1500 Total Fluid Given 300 Returning to Patient Care Unit Transport Returning to Patient Care Unit Transport yes Testing Complete yes NPO no Changes In Status no [place] Procedure Orders Written no Sending RN/Tech Name Jyoti BAUER Cognitive/Neuro/Behavioral WDL Cognitive/Neuro/Behavioral WDL WDL Mood/Behavior calm;cooperative Cardiovascular WDL Cardiac WDL WDL Peripheral Neurovascular WDL Peripheral Neurovascular WDL WDL Respiratory WDL Respiratory WDL WDL Safety Patient Safety WDL WDL Patient Safety Factors bed in low position;call light in reach;ID band on;side rails raised x 4;wheels locked Bed Entrapment Risk elderly;frail Elopement/Wandering Risk none Enhanced Safety Measures bed alarm set Safety Management Safety Promotion/Fall Prevention assistive device/personal items within reach;clutter-free environment maintained;fall prevention program maintained;lighting adjusted;safety round/check completed General Pain Documentation (Adult, OB, Peds) Presence of Pain denies pain/discomfort Presence of Pain Score (Auto-calculated) 0 Pain/Comfort Interventions Fever Reduction/Comfort Measures lightweight bedding Sleep/Rest/Relaxation (Adult,Pediatric,OB) Sleep/Rest/Relaxation awake LOC/Significant Event RASS (Meneses Agitation-Sedation Scale) 0-->alert and calm Significant Event HD completed HD Treatment Note Access used for this treatment: left FAF.. Access issues/complications: no. Just prolonged bleeding on arterial site post treatment Average Crit line profile: A LOC baseline: awake and alert Any changes to LOC baseline after HD: No Behavioral issues: No Any changes to cardiac rhythm with HD: No Kidney cleared: moderate Medications with HD treatment: no Patient tolerated treatment: no Treatment Length: 3 hours; Blood Pump: 350 ml/min; UF: 1.2 kg; BLP: 61.3 iHD treatment complete, blood returned, stasis achieved. HD RN remained at bedside for duration of treatment. Report called to Primary RN. Request for transport has been placed. * Plan of Care - Desiree Ga MD - 09/12/2023 2:35 PM EDT Brief GI Note/Post-Procedure Note: 82 y.o. 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 EGD at OSH notable for submucosal duodenal mass in D2, biopsies not taken given hypotension during procedure. Other biopsies though were negative for HP, positive for focal intestinal metaplasia CTAP notable for bladder mass, subcentimeter right hepatic lobe hemangioma, cholelithiasis, multiple pancreatic cysts, largest measuring 1.5 cm Unfortunately had to bump EGD/EUS today given scheduling constraints. Please allow patient to eat for today. We will tentatively plan for Friday. For EUS: - Please make NPO at midnight. - Check coags and CBC on morning labs. Please ensure that hemoglobin >7, platelets >50,000 and INR <1.6 by 7am in order to facilitate timely endoscopy. - If applicable, please ensure that ANC >1000 prior to endoscopic intervention (unless approved by endoscopist). Please do not transfuse patient blood products in the AM if the ANC is not as goal as the procedure will likely be rescheduled until ANC meets goal. - If applicable, please hold heparin gtt starting at midnight. - Endoscopy may need to be rescheduled for the following reasons: urgent / emergent procedures, change in clinic status (example - respiratory decompensation overnight, hypotension, etc), echocardiogram ordered but not complete prior to endoscopy or at the discretion of anesthesia staff Desiree Ga MD Division of Gastroenterology, Hepatology, and Nutrition Clinical Fellow PGY-4 Pager: [phone] * Plan of Care - Jyoti Jackson RN - 09/12/2023 10:42 AM EDT During Lavinia Durand's Dialysis Treatment on 09/12/2023 the following interventions for Prevent/Manage Dialysis Procedure Complication were completed: 1.Ensure system correctly primed, connections secure, and air detector alarms engaged. 2.Verify correct machine setting with physician order. 3.Assure proper dialysate conductivity and water quality prior to starting treatment 4.Closely monitor patient throughout for tolerance to treatment During Lavinia L Ladarius's Dialysis Treatment on 09/12/2023 the following interventions to Protect/Monitor Dialysis AV Access Site were completed: 1.Inspect and monitor Dialysis AV access site 2.Educate patient on home care, and reportable symptoms 3.Avoid using arm with dialysis access site for IV access, phlebotomy, injections or BP readings. During Lavinia L Paolalanki's Dialysis Treatment on 09/12/2023 the following interventions for Monitoring and Managing Fluid Electrolyte/Acid Base Balance were completed: 1.Monitor intake and output. 2.Monitor daily weight. 3.Enforce fluid restriction. 4.Manage electrolyte shifts and resulting effect. 5.Assess presence/location of edema. * Plan of Care - Annelise Tay RN - 09/12/2023 10:01 AM EDT Problem: Adult Inpatient Plan of Care Goal: Plan of Care Review Outcome: Progressing * Nursing Notes - Laura Cowart RN - 09/12/2023 4:58 AM EDT POTASSIUM: 5.3 (H). Patient getting dialysis today. MD aware. * Nursing Notes - Laura Cowart RN - 09/11/2023 8:43 PM EDT NPO order at midnight requested. Per note from GI: EGD: NPO @ MN day prior to EGD, morning coags and CBC for INR <1.5, Hgb >7, and Plt >50. [employer] notified. * Nursing Notes - Kevin Merrill RN - 09/11/2023 4:57 PM EDT Patient has orders for dialysis tomorrow, will schedule the AM. Please note this time may change due to any added emergent treatments. Call our unit at #[phone] with any questions or concerns. * Nursing Notes - Aleksandar Garcia RN - 09/11/2023 3:20 PM EDT Lumbar puncture performed per Delbert BRENNAN. Pt tolerated well with positioning for comfortand local anesthetic. (Pressures obtained with LP and recorded. Opening pressure is 17.) Diagnosticsamples obtained as ordered by primary team and sample timeout performed with Delebrt BRENNAN. Specimens walked to the lab. Dressing to mid lower back dry and intact. Pt repositioned for comfort, call light within reach. Bedside nurse updated. * Plan of Care - Annelise Tay RN - 09/11/2023 2:31 PM EDT Problem: Adult Inpatient Plan of Care Goal: Plan of Care Review Outcome: Progressing * Plan of Care - MIKA Mendez - 09/11/2023 12:59 PM EDT Procedure and Vascular Access Pre-Procedure Evaluation Note A consult has been placed for a lumbar puncture on this patient. This is a diagnostic procedure. For this procedure, laterality is N/A. Diagnostic labs have been ordered by the referring team. If not these will need to be ordered priorto the procedure. Labwork has been reviewed: No results found for: INR Lab Results Component Value Date PLATELET 125 (L) 09/11/2023 Hemoglobin Date/Time Value Ref Range Status 09/11/2023 01:00 AM 8.5 (L) 11.4 - 15.2 g/dL Final The labs are unacceptable to proceed with the procedure.Needs updated INR. On admission, the patient was Not Tested/Assessed for the novel coronavirus. Current Allergies: Allergies Allergen Reactions Atorvastatin Fatigue Humira (2 Pen) [Adalimumab] Rash Pork-Derived Products The medication list has been reviewed. Prior to starting the procedure, there is not medication to hold. Code status is FULL The patient is not able to provide consent. Consent will be obtained from POA and matches procedurebeing performed. The estimated start time for this procedure is 09/11/2023, which has been communicated to the RN andthe primary service. The patient is not required to be NPO. PVAT CAROL ANN: MIKA Mendez Contact # [phone] * Plan of Care - Che Haddad PT - 09/11/2023 11:42 AM EDT Problem: PT - General Goals Goal: Pt will perform bed mobility within precautions at independence in order to improve functional mobility and safety. Outcome: Ongoing Goal: Pt will perform transfers within precautions with independence with without an assistive device in order to improve functional mobility and safety. Outcome: Ongoing Goal: Pt will ambulate 100 feet within precautions with least restrictive device at independence toimprove ability to navigate home environment. Outcome: Ongoing * Plan of Care - Fabricio Hahn OT - 09/11/2023 9:39 AM EDT Problem: OT - ADLs Goal: Lower Body Dressing - Patient will complete lower body dressing tasks with modified independence using adaptive equipment/compensatory strategies as needed for improved ability to complete self-care activities. Outcome: Progressing Goal: Toileting - Patient will complete toileting task with modified independence and adaptive equipment as needed for improved ability to safely complete self-care activities. Outcome: Progressing Problem: OT - Transfers Goal: Transfers Toilet/ Bedside Commode - Patient will transfer to/from toilet/bedside commode withmodified independence for improved ability to safely complete ADLs. Outcome: Progressing Problem: OT - Endurance Goal: Endurance Functional Mobility - Patient will complete distance needed for common household mobility with no rest breaks for improved tolerance to safely complete I/ADL's Outcome: Progressing Problem: OT - Cognition Goal: Cognition Simple ADL - Patient will demonstrate improved cognition, completing simple ADL task for 15 minutes with no greater than min cues required to maintain attention. Outcome: Progressing * Nursing Notes - Elisabeth Diaz RN - 09/11/2023 9:28 AM EDT Obtained OSH EGD biopsy reports from 09/08/23. Obtained med list from [facility]. Updated home med rec in IS. Notified hospitalist Dr Kirkland and forwarded records to him and medical records to scan to chart. Consuelo Diaz[place] [id number] * Nursing Notes - Nataliya Longo RN - 09/10/2023 8:15 PM EDT On admission to [facility], from outside facility a dual RN initial assessment of skin condition was performed by Nataliya Longo RN and Mariaelena Akins RN. Skin Assessment: Skin within defined limits:Yes LDA Added:No Nataliya Longo RN documented in this encounterU [facility] course Narrative* Marvin Bee MD - 09/18/2023 12:03 PM EDT Hospital Medicine Discharge Summary Patient Name Lavinia Durand Age (Date of ) 82 y.o. (1940) Admit Date 09/10/2023 Discharge Date 09/18/2023 Inpatient Days 8 Primary Diagnoses Active Hospital Problems Diagnosis Anemia (Low HGB) ESRD (end stage renal disease) on dialysis Chronic Electrolyte disorder (K, Cl, or Na) Thrombocytopenia (Low Platelets) Chronic Resolved Hospital Problems Diagnosis Date Resolved Encephalopathy 09/18/2023 Action Items Continue to monitor mentation--take protective measures against delirium while in SNF ESRD MWF, med changes per Neph. Clonidine *patch* initiated at dc but may not take full effect for several days so likely to need breakthrough dosing Duodenal leiomyoma: Repeat EUS in 1 year (PCP will need to schedule) to surveil Dear Doctors, I recently had the opportunity to care for Lavinia Durand during her recent hospital stay at [facility]. As you may know, Lavinia Durand is a 82 y.o. 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 She has thankfully improved substantially throughout her course here and is no long showing signs of significant encephalopathy that would require further workup. She is ready for discharge to SNF for further care. Details of her course are below: Subacute encephalopathy: Seems to be ongoing/recurrent for past few weeks. Characterized mostly as apathy and reportedly they have noticed improvement with steroids, making OSH consider a paraneoplastic syndrome. Recent head imaging and CSF analysis has been benign. Ultimately suspect this is due to multifactorial causes contributing (abd pain, metabolic issues & possibly depression) - MRI brain w/ & w/out unremarkable - OSH Serum paraneoplastic panel was positive for ALLEN & PQCaC Abs channel binding abs, however neurology feels ALLEN wasn't elevated to the point they feel it would cause neurologic disease & Ca ch ab is likely a false positive given she does not have sx suggestive of lambert-eaton. - s/p trial solumedrol 1g qday x 3 days while awaiting results. Completed on 09/13. There was not major improvement of cognition or activity with this however pt has had slight gradual improvement during hospitalization, which is likely related to other interventions - repeat LP with results unremarkable including oligoclonal bands with further labs pending as below - serum encephalitis panel slightly positive for ALLEN ab (only 0.06) & CSF encephalitis panel negative for this. Given this, the serum ALLEN ab is felt to be a false positive & not clinically significant. Other results for these that have returned are negative to date. - paraneoplastic panel continues to return, unremarkable thus far including prior P/Q Ca ab for which she as previously at OSH - psych cs: 09/14. Agrees with flat affect though pt denying depression. They agree with trial of low dose remeron as below Abdominal pain Chronic gastritis duodenitis Grade A esophagitis submucosal duodenal mass and melanosis on EGD Most recent Hgb stable around 8. EGD reports from [place] suggested EUS with FNA of duodenal lesion. - Bx of stomach inflammation & erosians: mild chronic gastritis with focal intestinal metaplasia. Negative for H. pylori - bx of duodenal area: duodenal mucosa w/ katina gland hyperplasia -EGD w/ EUS: new grade A esophagitis & on going gastritis. 2.3x1.3 cm subepithelial nodule in distal 2nd part of duodenum. Obtained FNA bx, result shows leiomyoma--GI clarified on 09/17 that this can be followed up in 1 yr. Melanosis coli of duodenum. - con't PPI IV BID while here. Can stop temporary carafate given pain improved - scheduled tylenol - prn oxycodone though pt has been declining ESRD on HD MWF: Looks euvolemic currently. KATHY AVF. -neph cs -Nephrocaps -renal diet - last received HD 09/16 Type 2 diabetes previously diet controlled w/ more recent Steroid-induced hyperglycemia-A1c of 5.7.Previously on insulin however taken off when started on HD as was no longer requiring. Was requiring Lantus at [place]. Likely steroid- induced hyperglycemia to a degree but she has continued to require insulin coverage to keep BS under control here even with last dose of steroids being a few days ago - receiving NPH while on steroids, since stopped while off - con't ISS w/ high hyperglycemia coverage & normal carb coverage while here - suspect she would benefit from low dose of DDP-4 inhibitor (ex. Sitagliptin) at discharge - carb controlled diet Hypertensive urgency: difficult to control but overall improving control - con't coreg to 50mg BID - con't lisinopril 20mg BID - cont hydralazine 100mg TID - con't nifedepine 60 qAM & 60mg BID - con't clonidine 0.1mg TID. If issues with uncontrolled BP despite this, would increase dosing to 0.2 (and give the extra dose to make up difference). 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 GI advises against further surveillance due to age Acute on chronic anemia: hgb stable in 8's-9's currently - folate, vit b12 wnl - iron labs suggestive of chronic inflammation & anemia of CKD - started epo 10k units weekly (received 09/13) here. Should continue at SNF Hypothyroidism: -continue home Synthroid Glaucoma:-continue home latanoprost at bedtime Complexity. Hyponatremia - Secondary to fluid shifts. Monitor. Hypocalcemia - Continue to monitor and replete. Thrombocytopenia - Continue to monitor. Hypothyroidism - Continue thyroid replacement Upon discharge the patient's code was [id number] Please see the remainder of this document for relevant data from this admission as well as the patient's discharge instructions and follow-up appointments.. An electronic copy of the patient's records can be obtained via [facility] at [email or web address] It has been my pleasure participating in this patient's care. Please contact me with any questions or concerns regarding her hospital stay. The total time of discharge was 25 minutes. Sincerely, Marvin Bee MD Division of Hospital Medicine Relevant Data from this Admission OBJECTIVE Day of discharge: Vitals: 09/18/23 0326 09/18/23 0644 09/18/23 0715 09/18/23 1124 BP: 132/61 122/60 124/60 Pulse: 59 63 69 Resp: 16 16 16 Temp: 97.8 degrees F (36.6 degrees C) 98.9 degrees F (37.2 degrees C) 98.6 degrees F (37 degrees C) TempSrc: Oral Oral Oral SpO2: 95% 98% 95% Weight: 46.9 kg (103 lb 8 oz) O2 Sat (%): [93 %-100 %] 95 % O2 Device: room air PHYSICAL EXAM Gen: Awake, alert, oriented, laying in hospital bed conversing calmly Neck: Supple, no significant LAD Resp: Normal effort at rest, good effort when taking deep breaths with intact air exchange, CTAB Cardio: RRR, normal S1, S2, no subtle systolic murmur best heard while tracking toward LUE AVF Abd: Non-distended, NABS, soft, non-tender. Ext: WWP no edema; LUE AVF had good thrill MSK: No joint effusions or erythema. Skin: Warm, dry. No acute new rashes, bruises, lesions. Neuro: Oriented x3 DATA REVIEW Recent Labs 09/16/23 0044 09/17/23 0443 09/18/23 0334 WBC 9.63 8.48 7.05 HGB 7.9* 8.1* 7.9* MCV 94.4 94.0 94.3 PLATELET 121* 108* 90* Recent Labs 09/16/23 0044 09/17/23 0443 09/18/23 0334 SODIUM 133* 133* 137 POTASSIUM 3.8 4.6 4.4 CHLORIDE 98 99 101 CO2 23 25 30 BUN 35* 49* 24 CREATSERUM 3.02* 4.14* 2.39* CALCIUM -- 8.4* -- MAGNESIUM 1.6 1.6 1.6 OSMOLALITY 299 295 291 Recent Labs 09/17/23 0443 09/17/23 0736 09/17/23 1457 09/17/23 2122 09/18/23 0001 09/18/23 0334 09/18/23 0715 09/18/23 1127 GLUCOSE 112* 220* 110* 334* 165* 83 142* 125* No results for input(s): PT, INR, PTT in the last 72 hours. XR CHEST 1 VIEW PORTABLE Final Result IMPRESSION: No evidence for pneumonia. BRAIN WITH AND WITHOUT CONTRAST Final Result IMPRESSION: No evidence of an acute infarct. Changes of chronic microvascular disease. No intraparenchymal enhancing lesions identified. There is prominence of the ventricles which is likely related to parenchymal volume loss. Other considerations include normal pressure hydrocephalus.] CARDIOGRAM (Results Pending) Patient Instructions on Discharge Future Appointments Date Time Provider Department Center 09/19/2023 7:30 AM [id number] DIALYSIS , [facility] DLSYSD GAVIN 10/23/2023 10:00 AM MD ZACH Rosado GAVIN Morgan MD [address] [phone] Follow up [facility] [address] [address] Medication List for when you go home START taking these medications Morning Afternoon Evening Bedtime As Needed cloNIDine 0.1 MG TABS Take 1 tablet by mouth every 6 hours as needed for Blood Pressure (High) (SBP >180). Commonly known as: CATAPRES Last time this was given: Ask your nurse or doctor cloNIDine 0.1 MG/24HR PTWK patch Place 1 patch on skin every 7 days. Commonly known as: CATAPRES Last time this was given: 1 patch on September 18, 2023 11:54 AM Epoetin miguel [id number] UNIT/ML SOLN Inject 1 mL under the skin every 7 days. Last received on 09/13 Last time this was given: Ask your nurse or doctor mirtazapine 7.5 MG TABS Take 1 tablet by mouth at bedtime. Commonly known as: REMERON Last time this was given: 7.5 mg on September 17, 2023 8:29 PM NIFEdipine 60 MG tab XL tablet Take 1 tablet by mouth every 12 hours. Commonly known as: ADALAT-CC Last time this was given: 60 mg on September 18, 2023 9:20 AM vitamin C/B complex/folic acid (VIRT-CAPS) 1 MG CAPS Take 1 capsule by mouth daily. Last time this was given: 1 mg on September 18, 2023 9:20 AM CHANGE how you take these medications Morning Afternoon Evening Bedtime As Needed Acetaminophen 325 MG tablet Take 3 tablets by mouth every 6 hours as needed for Mild Pain. Commonly known as: TYLENOL What changed: The quantity you have reported taking of this medication has changed How often you have reported taking this medication has changed Another medication with the same name was removed. Continue taking this medication, and follow the directions you see here. Last time this was given: 650 mg on September 18, 2023 12:25 AM carveDILOL 25 MG TABS Take 2 tablets by mouth 2 times daily. Commonly known as: COREG What changed: The strength you have reported taking of this medication has changed The quantity you have reported taking of this medication has changed Last time this was given: 50 mg on September 18, 2023 9:20 AM hydrALAZINE 100 MG TABS Take 1 tablet by mouth every 8 hours. Commonly known as: APRESOLINE What changed: Another medication with the same name was removed. Continue taking this medication, and follow the directions you see here. Last time this was given: 100 mg on September 18, 2023 4:58 AM Pantoprazole [address] tablet DR Take 1 tablet by mouth 2 times daily. Commonly known as: PROTONIX What changed: How often you have reported taking this medication has changed Last time this was given: Ask your nurse or doctor CONTINUE taking these medications Morning Afternoon Evening Bedtime As Needed Latanoprost 0.005 % SOLN ophthalmic solution Place 1 drop in both eyes At bedtime. Commonly known as: XALATAN Last time this was given: 1 drop on September 17, 2023 8:35 PM Levothyroxine 25 MCG TABS Take 1 tablet by mouth every morning before breakfast. Commonly known as: SYNTHROID Last time this was given: 25 mcg on September 18, 2023 4:58 AM Lisinopril 20 MG TABS Take 1 tablet by mouth 2 times daily. Commonly known as: PRINIVIL Last time this was given: 20 mg on September 18, 2023 9:20 AM Melatonin 3 MG TABS Take 1 tablet by mouth at bedtime. Last time this was given: 3 mg on September 17, 2023 8:30 PM Polyethylene glycol 17 g PACK packet Take 1 packet by mouth daily as needed for Constipation. Commonly known as: MIRALAX STOP taking these medications Acetaminophen 650 MG SUPP Commonly known as: TYLENOL You also have another medication with the same name that you need to continue taking as instructed. ALUMINUM & MAGNESIUM HYDROXIDE PO bisacodyl 10 MG SUPP suppository Commonly known as: DULCOLAX Docusate 100 MG CAPS Commonly known as: COLACE glucose 24 g GEL gel Commonly known as: INSTA-GLUCOSE guaiFENesin 100 MG/5ML LIQD Commonly known as: ROBITUSSIN hydrALAZINE 10 MG TABS Commonly known as: APRESOLINE You also have another medication with the same name that you need to continue taking as instructed. lidocaine 5 % PTCH patch Commonly known as: LIDODERM Milk of Magnesia 400 MG/5ML SUSP Generic drug: magnesium hydroxide predniSONE 10 MG TABS Commonly known as: DELTASONE sodium phosphate w/sodium biphosphate 7-19 GM/118ML ENEM documented in this encounterOSU [facility] History of Present illness Narrative* Destiny Steve RN - 09/18/2023 9:31 AM EDT Care Management Discharge Note Selected Continued Care - Admitted Since 09/10/2023 Destination Coordination complete. Service Provider Selected Services Address Phone Fax Patient Preferred [facility] [address] [place] [id number] [phone] -- Discharge Instruction of Bedside RN: 1-Confirm ambulatory order is in the ELOY 2-print off ELOY 3-print off AVS 4-print off Discharge Summary For facilities (if available) 5-Fax all to agency/vendor 6-the nurse can call report to [phone] [facility] [address] nurse. Transport Request Mode of Transfer: BLS Name of Discharge Transport Company: [facility] ETA: [facility], 09/18/23, 4:00p Confirmed with the facility the patient is able to come back today. Patient medically stable for discharge per physician/medical team. 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 remain in agreement with the discharge plan. Destiny MENA, RN Clinical Medical Tech [address] [place] [address] * Carri Lopez RN - 09/17/2023 11:[address] Bah aware of BP 181/76 * Barrera Kirkland MD - 09/17/2023 6:34 PM EDT [facility] Medicine Daily Progress Note Patient: Lavinia Durand, 1940, [id number] Physician: Barrera Kirkland MD, Attending Physician, GM6 service IMPRESSION/PLAN Lavinia Durand is a 82 y.o. 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 Subacute encephalopathy: Seems to be ongoing/recurrent for past few weeks. Characterized mostly as apathy and reportedly they have noticed improvement with steroids, making OSH consider a paraneoplastic syndrome. Recent head imaging and CSF analysis has been benign. Ultimately suspect this is due to multifactorial causes contributing (abd pain, metabolic issues & possibly depression) - MRI brain w/ & w/out unremarkable - OSH Serum paraneoplastic panel was positive for ALLEN & PQCaC Abs channel binding abs, however neurology feels ALLEN wasn't elevated to the point they feel it would cause neurologic disease & Ca ch ab is likely a false positive given she does not have sx suggestive of lambert-eaton. - s/p trial solumedrol 1g qday x 3 days while awaiting results. Completed on 09/13. There was not major improvement of cognition or activity with this however pt has had slight gradual improvement during hospitalization, which is likely related to other interventions - repeat LP with results unremarkable including oligoclonal bands with further labs pending as below - serum encephalitis panel slightly positive for ALLEN ab (only 0.06) & CSF encephalitis panel negative for this. Given this, the serum ALLEN ab is felt to be a false positive & not clinically significant. Other results for these that have returned are negative to date. - paraneoplastic panel continues to return, unremarkable thus far including prior P/Q Ca ab for which she as previously at OSH - psych cs: 09/14. Agrees with flat affect though pt denying depression. They agree with trial of low dose remeron as below Abdominal pain Chronic gastritis duodenitis Grade A esophagitis submucosal duodenal mass and melanosis on EGD Most recent Hgb stable around 8. EGD reports from [place] suggested EUS with FNA of duodenal lesion. - Bx of stomach inflammation & erosians: mild chronic gastritis with focal intestinal metaplasia. Negative for H. pylori - bx of duodenal area: duodenal mucosa w/ katina gland hyperplasia -EGD w/ EUS: new grade A esophagitis & on going gastritis. 2.3x1.3 cm subepithelial nodule in distal 2nd part of duodenum. Obtained FNA bx, result pending. Melanosis coli of duodenum. - con't PPI IV BID while here. Can stop temporary carafate given pain improved - scheduled tylenol - prn oxycodone though pt has been declining ESRD on HD MWF: Looks euvolemic currently. KATHY AVF. -neph cs -Nephrocaps -renal diet - last received HD 09/16 Type 2 diabetes previously diet controlled w/ more recent Steroid-induced hyperglycemia-A1c of 5.7.Previously on insulin however taken off when started on HD as was no longer requiring. Was requiring Lantus at [place]. Likely steroid- induced hyperglycemia to a degree but she has continued to require insulin coverage to keep BS under control here even with last dose of steroids being a few days ago - receiving NPH while on steroids, since stopped while off - con't ISS w/ high hyperglycemia coverage & normal carb coverage while here - suspect she would benefit from low dose of DDP-4 inhibitor (ex. Sitagliptin) at discharge - carb controlled diet Hypertensive urgency: difficult to control but overall improving control - con't coreg to 50mg BID - con't lisinopril 20mg BID - cont hydralazine 100mg TID - con't nifedepine 60 qAM & 60mg BID - con't clonidine 0.1mg TID. If issues with uncontrolled BP despite this, would increase dosing to 0.2 (and give the extra dose to make up difference). 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 GI advises against further surveillance due to age Acute on chronic anemia: hgb stable in 8's-9's currently - folate, vit b12 wnl - iron labs suggestive of chronic inflammation & anemia of CKD - started epo 10k units weekly (received 09/13) here. Should continue at SNF Hypothyroidism: -continue home Synthroid Glaucoma:-continue home latanoprost at bedtime Complexity. Hyponatremia - Secondary to fluid shifts. Monitor. Hypocalcemia - Continue to monitor and replete. Thrombocytopenia - Continue to monitor. Hypothyroidism - Continue thyroid replacement Any conditions listed below are present on admission unless otherwise specified. . DVT prophylaxis with SCD's while monitoring for GI bleed Access: PIV Disposition: SNF likely tomorrow Code status is DNR-CCA INTERVAL HISTORY/SUBJECTIVE Shows more bright affect today. Smiled once. Asked a question about her care. Interview a little more conversational beyond me asking her questions & her providing brief answers. She states she's overall feeling better than a few days ago. Abd pain improving. BP 140's-160's from 6pm with occasional 170's (frequent BP in HD). BS in low 100's to low 200's since mid day yesterday. OBJECTIVE Temp: [97.4 F (36.3 C)-98.2 F (36.8 C)] 98 F (36.7 C) Pulse (Heart Rate): [58-74] 74 Resp Rate: [15-20] 18 BP: (128-190)/(57-81) 184/77 O2 Sat (%): [93 %-100 %] 93 % Gen: A, A, NAD ENT: MMM Resp: CTAB, normal effort, on RA Cardio: RRR, normal S1, S2, systolic ejection murmur consistent with . No SANTIAGO, 2+ peripheral pulses GI: S/ND, NABS, NT Neuro: Ox4/4, 4/5 strength of all extremities Psych: flat affect. Oriented but limited insight. Denies depression DATA REVIEW WBC/Hgb/Hct/Plts: 8.48/8.1/25.2/108 (09/16 442) Na/K+/Phos/Mg/Ca: 133/4.6/3.5/1.6/8.4 (09/16 442) Bun/Creat/Cl/CO2/Glucose: 49/4.14/99/25/220 (09/16 442-09/17 735) There is no height or weight on file to calculate BMI. Signed, Barrera Kirkland MD * Destiny Steve RN - 09/17/2023 3:54 PM EDT Plan of Care- Treatment Updates: updated this CM that daughter okay with discharge for tomorrow back to [facility]. Discharge updates: This nurse updated the facility and the patient doesn't need a HENS or precert. Transportation set with [facility] for tomorrow 09/17 @ 4pm. Destiny MENA, RN Clinical Medical Tech [address] [place] [address] * Bettina Ronni - 09/17/2023 3:29 PM EDT 09/17/23 1529 Transport Request Mode of Transfer BLS Name of Discharge Transport Company [facility]charge [facility], 09/18/23, 4:00p This pt will be picked up at [facility] room [address], going to: [facility] [address] [place] [address] Soheila Rudolph CM [employer] [phone] * Luciana Wasserman OT - 09/17/2023 2:04 PM EDT Occupational Therapy Attempt Note 09/17/2023 OT Therapy Completed: Attempted Pt off the floor, therefore OT will re-attempt again as able and appropriate. Luciana Wasserman OT Time In: 1400 Time Out: 1400 Total Visit Time: 0 minutes Total Treatment Time (skilled, billable minutes): 0 minutes * Che Haddad, PT - 09/17/2023 1:48 PM EDT Acute Physical Therapy Treatment Prior Gross Functional Mobility: used device Current AM-PAC score(s): CURRENT AM-PAC Mobility Raw Score: 16 Based on the above AM-PAC score(s) and PT clinical judgment, patient is a good candidate for discharge to Assisted Facility return Barriers to discharge home: Patient needs assistance with functional mobility Mobility equipment available at home: rollator ADL equipment available at home: shower chair, grab bars Equipment needed for discharge: none Current therapy frequency recommendation in acute: Therapy Frequency: 3 times a week Precautions and Weightbearing Status: Existing Precautions/Restrictions: fall Patient Safety Communication Prior to Visit: Nursing Subjective: Pt agreeable for therapy. Pt reports not being out of bed this date. Pain: General Pain Documentation (Adult, OB, Peds) Presence of Pain: denies pain/discomfort Presence of Pain Score (Auto-calculated): 0 Objective/Observation: Vitals/Vitals Responses to Treatment: vss. Pt reports fatigue and weakness limiting activity. O2 Device: room air Cognition Overall Cognitive Status: Within Functional Limits Arousal/Alertness: Appropriate responses to stimuli Orientation Level: Oriented X4 Extremity Assessments: See PT Evaluation flowsheet for Extremity Measurement updates. Skin and Edema: Balance: Sitting Balance Static Sitting-Level of Assistance: Contact guard Dynamic Sitting-Level of Assistance: Contact guard Skilled Rationale: Positioning, Sequencing, Hand placement, Verbal cues, Technique of activity, Cues for increased safety, Energy conservation Sitting Balance Skilled Intervention/Details: 15 mins EOB varied UE supports Standing Balance Static Standing-Level of Assistance: Contact guard Dynamic Standing-Level of Assistance: Contact guard Standing-Balance Support: 2 wheeled walker Skilled Rationale: Positioning, Sequencing, Hand placement, Technique of activity, Cues for increased safety, Energy conservation Standing Balance Skilled Intervention/Details: x3 trials, limited by fatigue Mobility Assessment/Intervention: Supine to Sit Mobility Gary Level: Supine->Sit: contact guard assist Bed Features/Set-up: Supine->Sit: Head of bed elevated, Use of bed rail Skilled Rationale: Positioning, Sequencing, Hand placement, Verbal cues, Tactile cues, Demonstration, Technique of activity, Cues for increased safety Skilled Intervention/Details: Supine->Sit: to/from supine Transfer Assessment/Intervention: Sit to Stand Transfer Gary Level: Sit->Stand: contact guard assist Assistive Device: Sit->Stand: 2 wheeled walker Skilled Rationale: Positioning, Sequencing, Hand placement, Technique of activity, Cues for increased safety, Energy conservation Skilled Intervention/Details: Sit->Stand: to/from surfaces, x4 trials Gait/Functional Mobility Assessment/Intervention: Gait Assessment Gary Level: Gait: contact guard assist Assistive Device: Gait: 2 wheeled walker Ambulation Distance (Feet): 60 Gait Deviations Identified: decreased nadeen, decreased gait speed Gait Skilled Rationale: demonstration, upright posture, safety to avoid obstacles, hand placement on assistive device Skilled Intervention/Details - Gait: x3 trials, requires sitting rest to complete 2/2 fatigue Stairs Assessment/Intervention: Outcome Score(s): Pt with average gait speed of .18 meters/sec on this date during testing, placing patient in walking speed classification of a Household Ambulator. Walking speed classification Household ambulation Limited Community ambulation [facility] ambulation [facility] safely 0 - 0.4 meter/sec 0.4-0.8 meter/sec 0.8 - 1.3 meter/sec >1.4 meter/sec Jack Welch, Maritza M, Walking speed: the functional vital sign. J Aging Phys Act 2015; 23(2):314-22. CURRENT [facility] Basic Mobility Inpatient Short Form Turning over in bed: 3 - A Little Assistance Moving from lying on back to sittin - A Little Assistance Moving to and from bed to chair: 3 - A Little Assistance Sitting/standing from chair: 3 - A Little Assistance Walk in hospital room: 3 - A Little Assistance Climbing 3-5 steps with a railin - Total Assistance CURRENT [facility] Mobility Raw Score: 16 CURRENT [facility] Mobility Functional Limitation: 54.16% Impaired in Basic Mobility Interventions: Assessment & Plan: Today's PT treatment session focused on: Strength, Balance, Pain, Posture, Transfers, Gait/Locomotion, Aerobic capacity/endurance. Pt demonstrates progression towards goals and PT POC adjusted to allow for progression. At this time, patient's deficits that contribute to impaired functional mobilityinclude: Increased fall risk. Pt would benefit from continued skilled PT to address noted deficits,improve safe functional mobility and return to prior level of function. Learners: Patient Education provided: Compensatory strategies, Fall precautions, Role of this discipline Teaching method: Verbal Education/Instruction Learner response: Needs review Learning considerations: No barriers/ready to learn Plan for next session: progress activity tolerance and progress functional gait/balance Home Setting Residence: House Lives With: (Son and DIL) Patient receives help from : none Patient reported support for discharge plannin hour supervision First floor setup: bedroom, walk-in shower Number of stairs to enter home: 0 Number of stairs in home: 0 Mobility Equipment Available: rollator ADL Equipment Available: shower chair, grab bars Home Environment Details: No falls reported prior Previous Level of Function Gross Functional Mobility: used device Assistive Device: 4 wheeled walker Prior level ADL Overview: Independent with all ADLs Bed Mobility: independent Transfers: independent Prior Level of Function Details: Patient denied overt limitations prior to initial medical onset ofsymptoms Acute PT Goals Plan of Care by Che Haddad PT at 09/17/2023 1:48 PM Version 1 of 1 Problem: PT - General Goals Goal: Pt will perform bed mobility within precautions at independence in order to improve functional mobility and safety. Outcome: Progressing Goal: Pt will perform transfers within precautions with independence with without an assistive device in order to improve functional mobility and safety. Outcome: Progressing Goal: Pt will ambulate 100 feet within precautions with least restrictive device at independence toimprove ability to navigate home environment. Outcome: Progressing PT treatment consisted of the following to progress towards the above goal(s): PT Evaluation and Treatment Time Therapeutic Activity Time Entry: 10 Gait Training Time Entry: 13 Treating Therapist: Che Haddad PT Additional Details: PT Co-Eval/Treatment Information Co-evaluation/co-treatment performed?: No simultaneous skilled care performed PPE used during patient interaction: facemask, gloves Patient location at end of session: bed with head of bed elevated Alarms on at end of session: RN aware Needs in reach. Time In: 919 Time Out: 942 Total Visit Time: 23 minutes Total Treatment Time (skilled, billable minutes): 23 minutes Upon discontinuation of Acute Care Physical Therapy Services or patient discharge from the hospitalthis note represents the current Physical Therapy Discharge Summary. * Anastacio Rausch MD - 09/17/2023 11:00 AM EDT Nephrology Inpatient Follow up Note Reason for Initial Consult: ESRD Impression and Recommendations: 82 F with ESRD on HD admitted with subacute encephalopathy. Nephrology is following for dialysis management. ESRD -continue HD on MWF schedule -check weight daily and after each dialysis treatment -check chem 6 MWF while admitted -keep strict Is and Os -give nephrocaps/nephronex daily -low Na, low K, low phos, high protein diet. Limit fluids to 1.5 L/day -dose all medications for dialysis Hypertension, volume management -euvolemic appearing but BP elevated -will attempt UF with dialysis as tolerated -continue coreg, nifedipine, lisinopril, hydralazine. Clonidine is a reasonable next step - would consider patch form if insurance will cover. 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 No need for direct PTH treatment. -monitor phos and Ca 3x/week while admitted Anemia in CKD -continue epo, target hgb 10-11 Dialysis access assessment -AVF working without any reported issues With any questions please contact us via [employer] (Internal medicine ? Nephrology ? ESRD UH team) Robbin Rausch MD Marketing Compliance Manager, Division of Nephrology Pager [phone] Subjective/Interval History: Patient seen and evaluated. Physical Examination: BP 146/66 (BP Location: Right arm, BP Position: Lying) Pulse 65 Temp 98.2 F (36.8 C) (Oral) Resp 16 Wt 45.7 kg (100 lb 12.8 oz) SpO2 98% Smoking Status Never I/O last 3 completed shifts: In: 338 [P.O.:338] Out: - General: Alert and comfortable appearing. Respiratory: Respiratory effort is normal. Cardiovascular: Normal rate, regular rhythm Extremities: Minimal lower extremity edema bilaterally. Medications: Current Facility-Administered Medications Medication Dose Route Frequency Provider Last Rate Last Admin Acetaminophen (TYLENOL) tablet 975 mg 975 mg Oral TID Barrera Kirkland MD 975 mg at 09/16/232024 alum/mag hydrox.-simethicone oral suspension 30 mL 30 mL Oral Q6H PRN Dwight Tobin MD carveDILOL (COREG) tablet 50 mg 50 mg Oral Q12H Barrera Kirkland MD 50 mg at 09/17/23 0847 cloNIDine (CATAPRES) tablet 0.1 mg 0.1 mg Oral TID Barrera Kirkland MD 0.1 mg at 09/17/23 0847 Insulin lispro (HUMALOG) injection Subcutaneous 4x daily w/meals, HS Barrera Kirkland MD 5 Units at 09/17/23 0921 And Insulin lispro (HUMALOG) injection Subcutaneous PRN Barrera Kirkland MD And Dextrose 50% injection 7.5-25 g 7.5-25 g Intravenous As directed PRN Barrera Kirkland MD And glucose (GLUTOSE) 40 % oral gel 1-2 Tube 1-2 Tube Oral As directed PRN Barrera Kirkland MD 1 Tubeat 09/16/23 0553 epoetin miguel-epbx (RETACRIT) injection 10,000 Units 10,000 Units Subcutaneous Weekly Barrera Kirkland MD 10,000 Units at 09/14/23 1900 Folic acid (FOLVITE) tablet 1 mg 1 mg Oral Daily Dwight Tobin MD 1 mg at 09/16/23 0840 hydrALAZINE (APRESOLINE) tablet 100 mg 100 mg Oral Q8H Barrera Kirkland MD 100 mg at 09/17/23 0541 HYDROmorphone (DILAUDID) injection 0.2 mg 0.2 mg Intravenous Q3H PRN Barrera Kirkland MD Latanoprost (XALATAN) 0.005 % ophthalmic solution 1 drop 1 drop Both Eyes QHS Dwight Tobin MD 1drop at 09/16/23 2147 Levothyroxine (SYNTHROID) tablet 25 mcg 25 mcg Oral Before BKF Dwight Tobin MD 25 mcg at 09/17/23 0541 Lisinopril (PRINIVIL) tablet 20 mg 20 mg Oral Q12H Barrera Kirkland MD 20 mg at 09/17/23 0847 Melatonin tablet 3 mg 3 mg Oral QHS Dwight Tobin MD 3 mg at 09/16/232024 Melatonin tablet 6 mg 6 mg Oral QHS PRN Dwight Tobin MD Mirtazapine (REMERON) tablet 7.5 mg 7.5 mg Oral QHS Barrera Kirkland MD 7.5 mg at 09/16/232024 NIFEdipine (PROCARDIA XL) tablet XL 60 mg 60 mg Oral Daily Barrera Kirkland MD 60 mg at 09/16/23 0840 And NIFEdipine (PROCARDIA XL) tablet XL 60 mg 60 mg Oral QHS Barrera Kirkland MD 60 mg at 09/16/232023 Ondansetron 4mg/2ml (ZOFRAN) injection 4 mg 4 mg Intravenous Q6H PRN Dwight Tobin MD Or Ondansetron (ZOFRAN) tablet 4 mg 4 mg Oral Q6H PRN Dwight Tobin MD oxyCODONE (ROXICODONE) tablet 5 mg 5 mg Oral Q4H PRN Barrera Kirkland MD Pantoprazole (PROTONIX) injection 40 mg 40 mg Intravenous BID Barrera S Marita, MD 40 mg at 09/17/23 0845 Polyethylene glycol (MIRALAX) packet 17 g 17 g Oral Daily PRN Dwight Tobin MD Sodium chloride 0.9% IV solution 250 mL 250 mL Intravenous PRN Dwight Tobin MD Sucralfate (CARAFATE) oral suspension 1,000 mg 1 g Oral QACHS Barrera Kirkland MD 1,000 mg at 09/17/23 0845 vitamin C/B complex/folic acid (VIRT-CAPS) capsule 1 mg 1 capsule Oral Daily Dwight Tobin MD 1 mg at 09/16/23 0839 Relevant Data Reviewed: Lab Results Component Value Date CREATSERUM 4.14 (H) 09/17/2023 CREATSERUM 3.02 (H) 09/16/2023 CREATSERUM 4.44 (H) 09/15/2023 BUN 49 (H) 09/17/2023 BUN 35 (H) 09/16/2023 SODIUM 133 (L) 09/17/2023 POTASSIUM 4.6 09/17/2023 CHLORIDE 99 09/17/2023 CO2 25 09/17/2023 CALCIUM 8.4 (L) 09/17/2023 PHOSPHORUS 3.5 09/17/2023 ALBUMIN 2.7 (L) 09/11/2023 Lab Results Component Value Date WBC 8.48 09/17/2023 HGB 8.1 (L) 09/17/2023 PLATELET 108 (L) 09/17/2023 Lab Results Component Value Date PTH 179.4 (H) 09/17/2023 CALCIUM 8.4 (L) 09/17/2023 PHOSPHORUS 3.5 09/17/2023 Lab Results Component Value Date HGB 8.1 (L) 09/17/2023 MCV 94.0 09/17/2023 FERRITIN 1,580.8 (H) 09/12/2023 IRON 149 09/12/2023 IRONSATURAT 87 (H) 09/12/2023 TIBC 171 (L) 09/12/2023 TRANSFERRIN 137 (L) 09/12/2023 * Barrera Kirkland MD - 09/16/2023 4:42 PM EDT [facility] Medicine Daily Progress Note Patient: Lavinia Durand, 1940, [id number] Physician: Barrera Kirkland MD, Attending Physician, GM6 service IMPRESSION/PLAN Lavinia Durand is a 82 y.o. 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 Subacute encephalopathy: Seems to be ongoing/recurrent for past few weeks. Characterized mostly as apathy and reportedly they have noticed improvement with steroids, making OSH consider a paraneoplastic syndrome. Recent head imaging and CSF analysis has been benign. - MRI brain w/ & w/out unremarkable - OSH Serum paraneoplastic panel was positive for ALLEN & PQCaC Abs channel binding abs, however neurology feels ALLEN wasn't elevated to the point they feel it would cause neurologic disease & Ca ch ab is likely a false positive given she does not have sx suggestive of lambert-eaton. - s/p trial solumedrol 1g qday x 3 days while awaiting results. Completed on 09/13. There has been no improvement of cognition or activity with this while here - repeat LP with prelim results unremarkable & further labs pending as below - serum & CSF encephalitis panels pending - paraneoplastic panel starting to return, unremarkable thus far including prior P/Q Ca ab for which she as previously at OSH - Oligoclonal bands unremarkable - psych cs: agrees with flat affect though pt denying depression. They agree with trial of low doseremeron & will continue to monitor - question if her issues with abd pain from her various GI issues below are contributing as well. Will work to get better sx control - may also have component of metabolic encephalopathy given her multiple issues below Abdominal pain Chronic gastritis duodenitis Grade A esophagitis submucosal duodenal mass and melanosis on EGD Most recent Hgb stable around 8. EGD reports from [place] suggested EUS with FNA of duodenal lesion. - Bx of stomach inflammation & erosians: mild chronic gastritis with focal intestinal metaplasia. Negative for H. pylori - bx of duodenal area: duodenal mucosa w/ katina gland hyperplasia -EGD w/ EUS: new grade A esophagitis & on going gastritis. 2.3x1.3 cm subepithelial nodule in distal 2nd part of duodenum. Obtained FNA bx, result pending. Melanosis coli of duodenum. - con't PPI IV BID & temporary carafate. Abd pain seems to be improving - schedule tylenol - prn oxycodone & low dose IV dilaudid (though pt has been declining these). ESRD on HD MWF: Looks euvolemic currently. KATHY JANSEN. -neph cs -Nephrocaps -renal diet - last received HD 09/14 Steroid-induced hyperglycemia w/ glucose lability-A1c of 5.7. Not on insulin at home but was getting Lantus at [place]. Likely steroid-induced hyperglycemia to a degree but see has been previously given diagnosis of diabetes though highest A1c I see is 6.1 - very high for period yesterday suspect due to high carbs at dinner not being covered. - stop NPH given off steroids - con't ISS w/ high hyperglycemia coverage & normal carb coverage - carb controlled diet - will monitor another day off of steroids but suspect she would benefit from oral diabetes medication at discharge Hypertensive urgency: difficult to control. Seemed to be improving however again elevated this afternoon - con't coreg to 50mg BID - con't lisinopril 20mg BID - cont hydralazine 100mg TID - con't nifedepine 60 qAM & 60mg BID - will start clonidine 0.1mg TID. 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 GI advises against further surveillance due to age Acute on chronic anemia: hgb stable in 8's-9's currently - folate, vit b12 wnl - iron labs suggestive of chronic inflammation & anemia of CKD - starting epo 10k units weekly today Hypothyroidism: -continue home Synthroid Glaucoma:-continue home latanoprost at bedtime Complexity. Hyponatremia - Secondary to fluid shifts. Monitor. Thrombocytopenia - Continue to monitor. Hypothyroidism - Continue thyroid replacement Any conditions listed below are present on admission unless otherwise specified. . DVT prophylaxis with SCD's while monitoring for GI bleed Access: PIV Disposition: likely SNF pending evaluation above Code status is DNR-CCA INTERVAL HISTORY/SUBJECTIVE Awake & oriented. Responses remain quicker. Oriented. Discussed plan of care though pt does notask questions & seems to only provide answers to questions asked. When I spoke to daughterjerardo state her grandson who visited yesterday felt she was more conversational than prior. Continues to have issues with high BP. Initially seemed to be improving but increased in the afternoon. Issues with high BS overnight. Reached 400's as it seems she didn't receive coverage for 117 carbs consumed as part of dinner. After receiving several doses to control BS then had some low's in the middle of night at 50's-60's. She continues to note abd pain but denies having pain at that moment & states it's only when eating. She is declining tylenol at time & or more aggressive pain medication as she states she doesn't have pain when offered. I again asked about feeling depressed, however she denies this. Daughter does note that recently she found out the pt's son (daughter's brother) that went missing almost 40 years ago was tragically found many years ago, but they were not informed because of incorrect classification of his ethnicity. The daughter states her mother will not speak to even her about it & she noticed this was understandably distressing to her mother when the pt found out. OBJECTIVE Temp: [97.4 F (36.3 C)-98.8 F (37.1 C)] 98.8 F (37.1 C) Pulse (Heart Rate): [66-78] 78 Resp Rate: [14-16] 14 BP: (142-209)/(66-86) 209/81 O2 Sat (%): [96 %-100 %] 100 % Gen: A, A, appears chronically ill ENT: MMM Resp: CTAB, normal effort, on RA Cardio: RRR, normal S1, S2, systolic ejection murmur consistent with . No SANTIAGO, 2+ peripheral pulses GI: S/ND, NABS, mild epigastric tenderness Neuro: Ox4/4, 4/5 strength of all extremities Psych: flat affect. Oriented but limited insight. Denies depression DATA REVIEW WBC/Hgb/Hct/Plts: 9.63/7.9/25.2/121 (09/16 43) Na/K+/Phos/Mg/Ca: 133/3.8/--/1.6/-- (09/16 43) Bun/Creat/Cl/CO2/Glucose: 35/3.02/98/23/116 (09/16 43-09/15 620) There is no height or weight on file to calculate BMI. Signed, Barrera Kirkland MD * Anastacio Rausch MD - 09/16/2023 1:33 PM EDT Nephrology Inpatient Follow up Note Reason for Initial Consult: ESRD Impression and Recommendations: 82 F with ESRD on HD admitted with subacute encephalopathy. Nephrology is following for dialysis management. ESRD -continue HD on MWF schedule -check weight daily and after each dialysis treatment -check chem 6 MWF while admitted -keep strict Is and Os -give nephrocaps/nephronex daily -low Na, low K, low phos, high protein diet. Limit fluids to 1.5 L/day -dose all medications for dialysis Hypertension, volume management -euvolemic appearing but BP elevated -will attempt UF with dialysis as tolerated -continue current antihypertensives. Agree with increase in nifedipine. 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 Nephrology ? ESRD [facility] team) Robbin Rausch MD Marketing Compliance Manager, Division of Nephrology Pager [phone] Subjective/Interval History: Patient seen and evaluated. Physical Examination: BP 175/74 (BP Location: Right arm, BP Position: Lying) Pulse 71 Temp 98.5 F (36.9 C) (Oral) Resp 16 Wt 45.7 kg (100 lb 12.8 oz) SpO2 98% Smoking Status Never I/O last 3 completed shifts: In: 1050 [P.O.:200; I.V.:450; Dialysis:400] Out: 1400 General: Alert and comfortable appearing. Respiratory: Respiratory effort is normal. Cardiovascular: Normal rate, regular rhythm Extremities: Minimal lower extremity edema bilaterally. Medications: Current Facility-Administered Medications Medication Dose Route Frequency Provider Last Rate Last Admin Acetaminophen (TYLENOL) tablet 975 mg 975 mg Oral TID Barrera Kirkland MD 975 mg at 09/15/232015 alum/mag hydrox.-simethicone oral suspension 30 mL 30 mL Oral Q6H PRN Dwight Tobin MD carveDILOL (COREG) tablet 50 mg 50 mg Oral Q12H Barrera Kirkland MD 50 mg at 09/16/23 0841 Insulin lispro (HUMALOG) injection Subcutaneous 4x daily w/meals, HS Barrera Kirkland MD 3 Units at 09/16/23 1324 And Insulin lispro (HUMALOG) injection Subcutaneous PRN Barrera Kirkland MD And Dextrose 50% injection 7.5-25 g 7.5-25 g Intravenous As directed PRN Barrera Kirkland MD And glucose (GLUTOSE) 40 % oral gel 1-2 Tube 1-2 Tube Oral As directed PRN Barrera Kirkland MD 1 Tubeat 09/16/23 0553 epoetin miguel-epbx (RETACRIT) injection 10,000 Units 10,000 Units Subcutaneous Weekly Barrera Kirkland MD 10,000 Units at 09/14/23 1900 Folic acid (FOLVITE) tablet 1 mg 1 mg Oral Daily Dwight Tobin MD 1 mg at 09/16/23 0840 hydrALAZINE (APRESOLINE) tablet 100 mg 100 mg Oral Q8H Barrera Kirkland MD 100 mg at 09/16/23 1324 HYDROmorphone (DILAUDID) injection 0.2 mg 0.2 mg Intravenous Q3H PRN Barrera Kirkland MD Latanoprost (XALATAN) 0.005 % ophthalmic solution 1 drop 1 drop Both Eyes QHS Dwight Tobin MD 1drop at 09/15/232016 Levothyroxine (SYNTHROID) tablet 25 mcg 25 mcg Oral Before BKF wDight Tobin MD 25 mcg at 09/16/23 0623 Lisinopril (PRINIVIL) tablet 20 mg 20 mg Oral Q12H Barrera Kirkland MD 20 mg at 09/16/23 0841 Melatonin tablet 3 mg 3 mg Oral QHS Dwight Tobin MD 3 mg at 09/15/232015 Melatonin tablet 6 mg 6 mg Oral QHS PRN Dwight Tobin MD Mirtazapine (REMERON) tablet 7.5 mg 7.5 mg Oral QHS Barrera Kirkland MD 7.5 mg at 09/15/232016 NIFEdipine (PROCARDIA XL) tablet XL 60 mg 60 mg Oral Daily Barrera Kirkland MD 60 mg at 09/16/23 0840 And NIFEdipine (PROCARDIA XL) tablet XL 60 mg 60 mg Oral QHS Barrera Kirkland MD 60 mg at 09/15/232016 Ondansetron 4mg/2ml (ZOFRAN) injection 4 mg 4 mg Intravenous Q6H PRN Dwgiht Tobin MD Or Ondansetron (ZOFRAN) tablet 4 mg 4 mg Oral Q6H PRN Dwight Tobin MD oxyCODONE (ROXICODONE) tablet 5 mg 5 mg Oral Q4H PRN Barrera Kirkland MD Pantoprazole (PROTONIX) injection 40 mg 40 mg Intravenous BID Barrera Kirkland MD 40 mg at 09/16/23 0839 Polyethylene glycol (MIRALAX) packet 17 g 17 g Oral Daily PRN Dwight Tobin MD Sodium chloride 0.9% IV solution 250 mL 250 mL Intravenous PRN Dwight Tobin MD Sucralfate (CARAFATE) oral suspension 1,000 mg 1 g Oral QACHS Barrera Kirkland MD 1,000 mg at 09/16/23 1143 vitamin C/B complex/folic acid (VIRT-CAPS) capsule 1 mg 1 capsule Oral Daily Dwight Tobin MD 1 mg at 09/16/23 0839 Relevant Data Reviewed: Lab Results Component Value Date CREATSERUM 3.02 (H) 09/16/2023 CREATSERUM 4.44 (H) 09/15/2023 CREATSERUM 3.53 (H) 09/14/2023 BUN 35 (H) 09/16/2023 BUN 58 (H) 09/15/2023 SODIUM 133 (L) 09/16/2023 POTASSIUM 3.8 09/16/2023 CHLORIDE 98 09/16/2023 CO2 23 09/16/2023 CALCIUM 8.6 09/15/2023 PHOSPHORUS 6.2 (H) 09/15/2023 ALBUMIN 2.7 (L) 09/11/2023 Lab Results Component Value Date WBC 9.63 09/16/2023 HGB 7.9 (L) 09/16/2023 PLATELET 121 (L) 09/16/2023 Lab Results Component Value Date CALCIUM 8.6 09/15/2023 PHOSPHORUS 6.2 (H) 09/15/2023 Lab Results Component Value Date HGB 7.9 (L) 09/16/2023 MCV 94.4 09/16/2023 FERRITIN 1,580.8 (H) 09/12/2023 IRON 149 09/12/2023 IRONSATURAT 87 (H) 09/12/2023 TIBC 171 (L) 09/12/2023 TRANSFERRIN 137 (L) 09/12/2023 * Diann Carranza, 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 - 09/16/2023 12:01 AM EDT Notified that patient's BS was 396 and she was given 8 units lispro; recheck her BS was 451. Ordered a 1x 20 units dose of lispro. Recheck was 403; ordered 1 x 10 units lispro. Recheck was 295; ordered 1x 6 units lispro. Did not administer fluids since the patient is on HD. Recheck was 278, next was 264; ordered 1x 8 units lispro. Recheck =144 BS dropped to 50, pt ate a sandwich and it was 67. Pt was given 1 tube of glucose gel. She is not on long-acting insulin. * Barrera Kirkland MD - 09/15/2023 7:00 PM EDT [facility] Medicine Daily Progress Note Patient: Lavinia Durand, 1940, [id number] Physician: Barrera Kirkland MD, Attending Physician, [facility] service IMPRESSION/PLAN Lavinia Durand is a 82 y.o. 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 Subacute encephalopathy: Seems to be ongoing/recurrent for past few weeks. Characterized mostly as apathy and reportedly they have noticed improvement with steroids, making OSH consider a paraneoplastic syndrome. Recent head imaging and CSF analysis has been benign. - MRI brain w/ & w/out unremarkable - OSH Serum paraneoplastic panel was positive for ALLEN & PQCaC Abs channel binding abs, however neurology feels ALLEN wasn't elevated to the point they feel it would cause neurologic disease & Ca ch ab is likely a false positive given she does not have sx suggestive of lambert-eaton. - s/p trial solumedrol 1g qday x 3 days while awaiting results. Completed on 09/13. There has been no improvement of cognition or activity with this while here - repeat LP with prelim results unremarkable & further labs pending as below - OG bands, serum & CSF encephalitis panels pending - paraneoplastic panel starting to return, unremarkable thus far including prior P/Q Ca ab for which she as previously at OSH - consult psych given question of possible underlying depression given affect. While they agree heraffect is suggestive of depression & behavior is sometimes suggestive of depression, this is something she denies. - question if her issues with abd pain from her various GI issues below are contributing as well. Will work to get better sx control - may also have component of metabolic encephalopathy given her multiple issues below Abdominal pain Chronic gastritis duodenitis Grade A esophagitis submucosal duodenal mass and melanosis on EGD Most recent Hgb stable around 8. EGD reports from [place] suggested EUS with FNA of duodenal lesion. - Bx of stomach inflammation & erosians: mild chronic gastritis with focal intestinal metaplasia. Negative for H. pylori - bx of duodenal area: duodenal mucosa w/ katina gland hyperplasia -EGD w/ EUS: new grade A esophagitis & on going gastritis. 2.3x1.3 cm subepithelial nodule in distal 2nd part of duodenum. Obtained FNA bx. Melanosis coli of duodenum. - con't PPI IV BID. Start carafate - schedule tylenol - prn oxycodone & low dose IV dilaudid (though pt has been declining these). ESRD on HD MWF: Looks euvolemic currently. KATHY JANSEN. -neph cs -Nephrocaps -renal diet - last received HD 09/14 Steroid-induced hyperglycemia -A1c of 5.7 - Not on insulin at home but was getting Lantus at [place]. Likely steroid- induced hyperglycemia. - stop NPH given off steroids - con't ISS w/ high hyperglycemia coverage & normal carb coverage - carb controlled diet Hypertension: Seems to be historically difficult to control. 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 GI advises against further surveillance due to age Acute on chronic anemia: hgb stable in 8's-9's currently - folate, vit b12 wnl - iron labs suggestive of chronic inflammation & anemia of CKD - starting epo 10k units weekly today Hypothyroidism: -continue home Synthroid Glaucoma:-continue home latanoprost at bedtime Complexity. Hyponatremia - Secondary to fluid shifts. Monitor. Thrombocytopenia - Continue to monitor. Hypothyroidism - Continue thyroid replacement Any conditions listed below are present on admission unless otherwise specified. . DVT prophylaxis with SCD's while monitoring for GI bleed Access: PIV Disposition: likely SNF pending evaluation above Code status is DNR-CCA INTERVAL HISTORY/SUBJECTIVE Awake & oriented. Responses on time but brief & limited. No back & forth with conversation & really only provides answers to questions while asking no questions herself nor elaborating on anything. Affect is depressed, though she denies being depressed. She only states she feels unwell but is unable to elaborate other than to say she has abd pain, but denies any current abd pain. L ater reporting some pain but declined anything other than tylenol. Neuro feels agrees no improvement after 3 days of IV steroids. Question Underwent EGD today. Received HD. BP improving control 140's-160's post HD after getting her BP meds. OBJECTIVE Temp: [97.4 F (36.3 C)-98.4 F (36.9 C)] 97.4 F (36.3 C) Pulse (Heart Rate): [56-82] 67 Resp Rate: [13-21] 16 BP: (142-202)/(55-86) 142/66 O2 Sat (%): [94 %-100 %] 98 % Gen: A, A, appears chronically ill ENT: MMM Resp: CTAB, normal effort, on RA Cardio: RRR, normal S1, S2, systolic ejection murmur consistent with known . No SANTIAGO, 2+ peripheral pulses GI: S/ND, NABS, mild epigastric tenderness Neuro: Ox4/4, 4/5 strength of all extremities Psych: flat affect. Oriented but limited insight. Denies depression DATA REVIEW WBC/Hgb/Hct/Plts: 14.99/8.6/27.2/114 (09/14 0121) Na/K+/Phos/Mg/Ca: 130/5.4/6.2/1.9/8.6 (09/14 120) Bun/Creat/Cl/CO2/Glucose: 58/4.44/94/21/168 (09/14 012-09/14 161) Ptt/Pt/Inr: 25.4/16.3/1.3 (09/14 120) There is no height or weight on file to calculate BMI. Signed, Barrera Kirkland MD * Char Dias RD - 09/15/2023 3:42 PM EDT NUTRITION CONSULT Reason for Consult: assess for malnutrition Nutrition Recommendation and Plan of Care Continue current diet order, if K improves and remains <5 consistently consider liberalizing to Carb Controlled or even Regular; encourage meal selections; 2. Will provide vanilla/zheng Nepro (425 kcal, 19g PRO each) TID with all meals 3. Agree with VIRT-CAP 4.Agree with appetite stimulant 5. Will monitor po intake/tolerance, nutrition related labs, weights trends, GI function, and otherinformation for potential change in nutrition POC 6. RD to follow Thanks Char Dias, MS, RD, LD Pager: [phone] For up to date coverage please see [facility] schedule for Ancillary/Clinical Dietitian [facility] Reason for Admission/History of Present Illness: Per team notes Lavinia Durand is a 82 y.o. 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 Problems include subacute encephalopathy; abd pain/chronic gastritis/submucosal duodenal mass/melanosis on EGD; GI completing EGD/EUS today; Past History Past medical, surgical, family, and social histories have been reviewed and are located elsewhere in the medical record. Allergies Allergen Reactions Atorvastatin Fatigue Humira (2 Pen) [Adalimumab] Rash Pork-Derived Products Nutrition History: Chart reviewed: no previous nutrition encounters here; Assessment at [facility] 08/06/23 with follow up 08/14/23; severe chronic disease related PCM noted at that time; rec Darleen TID; Height: 149.9 cm (4' 11) Weight: 47 kg (103 lb 9.9 oz) Dosing Weight: 47 kg (103 lb 9.9 oz) Usual Weight: 52.3 kg (115 lb 4.8 oz) 05/05/23 Usual Weight Obtained From: Chart Review 09/10/23 Nutrition Risk Screening (MST) Have you recently lost weight without trying?: 1- 2 to 13 lb weight loss Have you been eating poorly because of decreased appetite?: 1- Yes Malnutrition Screening Tool Score: 2 RN reports pt back from procedure and has not had patient for very long d/t shift change but understands pt have be depressed; Met with patient at bedside this afternoon and asked if this RD could ask her some nutrition related questions and pt decline; when asked why pt states I'm to tired; pt does report she is hungry; SEO SPECIALIST aware and obtaining snacks for patient Food Allergies: unable to assess; noted pt does not consume pork products; Current Diet Order: 09/15/23 Carb Controlled; PHOSPHORUS AND POTASSIUM RESTRICTED (RENAL) Ate 50-100% of meals yesterday Assessments Edema: none noted; GI: WDL Last Bowel Movement: 09/15/23 Skin: Paresh Score: 17 Enteral Access:none noted; Labs: Reviewed, including Latest Reference Range & Units 09/11/23 01:00 09/12/23 04:06 09/13/23 04:06 09/14/23 00:58 09/15/23 01:21 SODIUM 135 - 145 mmol/L 132 (L) 132 (L) 137 132 (L) 130 (L) POTASSIUM 3.5 - 5.0 mmol/L 4.6 5.3 (H) 4.8 5.0 5.4 (H) CHLORIDE 98 - 108 mmol/L 99 97 (L) 99 96 (L) 94 (L) CARBON DIOXIDE (CO2) 21 - 31 mmol/L 25 22 28 23 21 BUN 7 - 25 mg/dL 42 (H) 59 (H) 24 39 (H) 58 (H) Creatinine 0.50 - 1.20 mg/dL 3.24 (H) 4.24 (H) 2.49 (H) 3.53 (H) 4.44 (H) BUN/CREA RATIO 13 14 10 11 13 eGFR, CKD-EPI, Female >=60 mL/min/1.73m2 14 (L) 10 (L) 19 (L) 12 (L) 9 (L) PHOSPHATE, INORGANIC 2.2 - 4.6 mg/dL 4.3 6.2 (H) MAGNESIUM 1.6 - 2.6 mg/dL 1.6 1.9 1.8 1.9 1.9 CALCIUM 8.6 - 10.5 mg/dL 8.9 8.6 ANION GAP 7 - 17 mmol/L 13 18 (H) 15 18 (H) 20 (H) OSMOLALITY (CALC) 278 - 305 mOsm/kg 290 297 300 295 301 BILIRUBIN, TOTAL <1.5 mg/dL 0.3 PROTEIN, TOTAL 6.4 - 8.3 g/dL 4.5 (L) Albumin 3.5 - 5.0 g/dL 2.7 (L) ALKALINE PHOSPHATASE 32 - 126 U/L 38 ALT 9 - 48 U/L 7 (L) AST 10 - 39 U/L 11 LIPASE 11 - 82 U/L 22 GLUCOSE 70 - 99 mg/dL 103 (H) 103 (H) 208 (H) 184 (H) 225 (H) BILIRUBIN, DIRECT <0.3 mg/dL <0.1 TRANSFERRIN 200 - 400 mg/dL 137 (L) Meds Reviewed including: folic acid, insulin lispro (held); levothyroxine, insulin regular, melatonin, mirtazapine, pantoprazole, carafate, VIRT-CAPS PRNs reviewed including alum/mag hydrox.-simethicone oral suspension, hydromorphone, melatonin, ondansetron, oxycodone, miralax (*if given on or after 09/13) Monitored Food-Drug Interactions: None Continuous Infusions:none noted; Fluid Management (24hrs ending 658):Net +300 ml, UOP x1 emesis 0, stool x1 (Since Adm Net+686 ml) Anthropometrics Ht: 5' (per previous RD assessment) IBW: 45 kg Weights (last 14 days) Date/Time Weight 09/13/23 0319 45.7 kg (100 lb 12.8 oz)-->%IBW: 101% BMI: 19.7 kg/m2 09/12/23 0407 46.7 kg (103 lb) 09/11/23 0853 46.4 kg (102 lb 3 oz) Weight history: Wt Readings from Last 10 Encounters: 09/13/23 45.7 kg (100 lb 12.8 oz) Estimated Nutrition Needs Weight Used: other (see comments) (adm wt: 46.5 kg) Energy Requirements (kcal/day): 3322-9817 Kcal/k-33 Protein Requirements (g/day): 55-70 Protein (g/kg): 1.2-1.5 Fluid Requirements (mL): per team Nutrition Focused Physical Exam Nutrition Focused Physical Exam Completed?: deferred Reason For Deferral: Pt refused Malnutrition Statement: Malnutrition criteria met: Does the patient meet criteria for malnutrition: Unable to assess as evidenced by clinical characteristics: *Based on [employer] and [employer] Indicators to Diagnose Malnutrition (AAIM) criteria (2012) * Destiny Steve RN - 09/15/2023 3:27 PM EDT Plan of Care- Treatment Updates: EGD today, psych now consulted Discharge updates: Discharge back to [facility], does inpatient HD there. Destiny MENA, RN Clinical Medical Tech [address] [place] [address] * Anastacio Rausch MD - 09/15/2023 10:45 AM EDT Nephrology Inpatient Follow up Note Reason for Initial Consult: ESRD Impression and Recommendations: 82 F with ESRD on HD admitted with subacute encephalopathy. Nephrology is following for dialysis management. ESRD -continue HD on MWF schedule while admitted -check weight daily and after each dialysis treatment -check chem 6 MWF while admitted -keep strict Is and Os -give nephrocaps/nephronex daily -low Na, low K, low phos, high protein diet. Limit fluids to 1.5 L/day -dose all medications for dialysis Hypertension, volume management -euvolemic appearing but BP elevated -will attempt UF with dialysis as tolerated -continue current antihypertensives. Agree with increase in nifedipine. 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 Nephrology ? ESRD [facility] team) Robbin Rausch MD Marketing Compliance Manager, Division of Nephrology Pager [phone] Subjective/Interval History: Patient seen and evaluated. Physical Examination: BP 161/71 Pulse 60 Temp 98.2 F (36.8 C) Resp 14 Wt 45.7 kg (100 lb 12.8 oz) SpO2 100% Smoking Status Never I/O last 3 completed shifts: In: 300 [P.O.:300] Out: - General: Alert and comfortable appearing. Respiratory: Respiratory effort is normal. Cardiovascular: Normal rate, regular rhythm Extremities: Minimal lower extremity edema bilaterally. Medications: Current Facility-Administered Medications Medication Dose Route Frequency Provider Last Rate Last Admin Acetaminophen (TYLENOL) tablet 650 mg 650 mg Oral Q4H PRN Dwight Tobin MD 650 mg at 09/14/232150 alum/mag hydrox.-simethicone oral suspension 30 mL 30 mL Oral Q6H PRN Dwight Tobin MD carveDILOL (COREG) tablet 50 mg 50 mg Oral Q12H Barrera Kirkland MD Insulin lispro (HUMALOG) injection Subcutaneous 4x daily w/meals, HS Barrera Kirkland MD 4 Units at 09/14/232151 And Insulin lispro (HUMALOG) injection Subcutaneous PRN Barrera Kirkland MD 1 Units at 09/13/238 And Dextrose 50% injection 7.5-25 g 7.5-25 g Intravenous As directed PRN Barrera Kirkland MD And glucose (GLUTOSE) 40 % oral gel 1-2 Tube 1-2 Tube Oral As directed PRN Barrera Kirkland MD epoetin miguel-epbx (RETACRIT) injection 10,000 Units 10,000 Units Subcutaneous Weekly Barrera Kirkland MD 10,000 Units at 09/14/23 1900 Folic acid (FOLVITE) tablet 1 mg 1 mg Oral Daily Dwight Tobin MD 1 mg at 09/14/23 0742 hydrALAZINE (APRESOLINE) tablet 100 mg 100 mg Oral Q8H Dwight Tobin MD 100 mg at 09/15/23 0544 HYDROmorphone (DILAUDID) injection 0.2 mg 0.2 mg Intravenous Q3H PRN Barrera Kirkland MD Latanoprost (XALATAN) 0.005 % ophthalmic solution 1 drop 1 drop Both Eyes QHS Dwight Tobin MD 1drop at 09/14/23 2152 Levothyroxine (SYNTHROID) tablet 25 mcg 25 mcg Oral Before BKF Dwight Tobin MD 25 mcg at 09/15/23 0544 Lisinopril (PRINIVIL) tablet 20 mg 20 mg Oral BID Dwight Tobin MD 20 mg at 09/14/23 1745 Melatonin tablet 3 mg 3 mg Oral QHS Dwight Tobin MD 3 mg at 09/14/23 215 Melatonin tablet 6 mg 6 mg Oral QHS PRN Dwight Tobin MD NIFEdipine (PROCARDIA XL) tablet XL 60 mg 60 mg Oral Daily Barrera Kirkland MD And NIFEdipine (PROCARDIA XL) tablet XL 60 mg 60 mg Oral QHS Barrera Kirkland MD Ondansetron 4mg/2ml (ZOFRAN) injection 4 mg 4 mg Intravenous Q6H PRN Dwight Tobin MD Or Ondansetron (ZOFRAN) tablet 4 mg 4 mg Oral Q6H PRN Dwight Tobin MD oxyCODONE (ROXICODONE) tablet 5 mg 5 mg Oral Q4H PRN Barrera Kirkland MD Pantoprazole (PROTONIX) injection 40 mg 40 mg Intravenous BID Barrera Kirkland MD 40 mg at 09/14/23 1745 Polyethylene glycol (MIRALAX) packet 17 g 17 g Oral Daily PRN Dwight Tobin MD Sodium chloride 0.9% IV solution 250 mL 250 mL Intravenous PRN Dwight Tobin MD vitamin C/B complex/folic acid (VIRT-CAPS) capsule 1 mg 1 capsule Oral Daily Dwight Tobin MD 1 mg at 09/14/23 0712 Relevant Data Reviewed: Lab Results Component Value Date CREATSERUM 4.44 (H) 09/15/2023 CREATSERUM 3.53 (H) 09/14/2023 CREATSERUM 2.49 (H) 09/13/2023 BUN 58 (H) 09/15/2023 BUN 39 (H) 09/14/2023 SODIUM 130 (L) 09/15/2023 POTASSIUM 5.4 (H) 09/15/2023 CHLORIDE 94 (L) 09/15/2023 CO2 21 09/15/2023 CALCIUM 8.6 09/15/2023 PHOSPHORUS 6.2 (H) 09/15/2023 ALBUMIN 2.7 (L) 09/11/2023 Lab Results Component Value Date WBC 14.99 (H) 09/15/2023 HGB 8.6 (L) 09/15/2023 PLATELET 114 (L) 09/15/2023 Lab Results Component Value Date CALCIUM 8.6 09/15/2023 PHOSPHORUS 6.2 (H) 09/15/2023 Lab Results Component Value Date HGB 8.6 (L) 09/15/2023 MCV 95.4 09/15/2023 FERRITIN 1,580.8 (H) 09/12/2023 IRON 149 09/12/2023 IRONSATURAT 87 (H) 09/12/2023 TIBC 171 (L) 09/12/2023 TRANSFERRIN 137 (L) 09/12/2023 * Vianney Schafer MD - 09/15/2023 6:57 AM EDT NEUROLOGY INPATIENT FOLLOW UP NOTE Reason for consultation: recurrent altered mental status, reportedly improved with steroids, transferred here for concerns for paraneoplastic syndrome in the setting of urothelial cancer Lavinia Durand is a 82 y.o. 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 INTERVAL HISTORY: Patient received IVMP 09/12-09/14 without any significant improvement. There was no family at [facility]. Patient reports that she doesn't report any difference in the past 3 days. Medical History Past Medical History: Diagnosis Date ESRD (end stage renal disease) Glaucoma Hypothyroidism Urothelial cancer Past Surgical History: Procedure Laterality Date KNEE REPLACEMENT NEPHRECTOMY PARTIAL HYSTERECTOMY TURP TURBT VEIN STRIPPING Allergies Allergen Reactions Atorvastatin Fatigue Humira (2 Pen) [Adalimumab] Rash Pork-Derived Products Medications Prior to Admission Medication Sig Dispense Refill Last Dose Acetaminophen 325 MG tablet Take 2 tablets by mouth every 4 hours as needed for Mild Pain. Acetaminophen 650 MG Suppository Insert 1 suppository rectally every 4 hours as needed for Mild Pain or Fever. ALUMINUM & MAGNESIUM HYDROXIDE PO Take 30 mL by mouth every 4 hours as needed for Other (GI distress). bisacodyl 10 MG Suppository suppository Insert 1 suppository rectally daily as needed for Constipation. carveDILOL 12.5 MG tablet Take 1 tablet by mouth 2 times daily. Docusate 100 MG capsule Take 1 capsule by mouth 2 times daily as needed for Constipation. glucose 24 g Gel gel Take 1 Tube by mouth as needed for Low blood sugar. guaiFENesin 100 MG/5ML Liquid Take 10 mL by mouth every 4 hours as needed for Cold Symptoms or Congestion. hydrALAZINE 10 MG tablet Take 1 tablet by mouth every 6 hours as needed (SBP >180). hydrALAZINE 100 MG tablet Take 1 tablet by mouth every 8 hours. Latanoprost 0.005 % Solution ophthalmic solution Place 1 drop in both eyes At bedtime. Levothyroxine 25 MCG tablet Take 1 tablet by mouth every morning before breakfast. lidocaine 5 % Patch patch Place 1 patch on skin every 24 hours. Max of 12 hours of application thenremove. Lisinopril 20 MG tablet Take 1 tablet by mouth 2 times daily. magnesium hydroxide (Milk of Magnesia) 400 MG/5ML Suspension Take 30 mL by mouth daily as needed for Constipation. Melatonin 3 MG tablet Take 1 tablet by mouth at bedtime. Pantoprazole [address] tablet DR Take 1 tablet by mouth daily. Polyethylene glycol 17 g Pack packet Take 1 packet by mouth daily as needed for Constipation. predniSONE 10 MG tablet Take 1 tablet by mouth daily. sodium phosphate w/sodium biphosphate 7-19 GM/118ML Enema Insert 1 enema rectally daily as needed for Constipation. Current medications: Current Facility-Administered Medications Medication Dose Route Frequency Provider Last Rate Last Admin Acetaminophen (TYLENOL) tablet 650 mg 650 mg Oral Q4H PRN Dwight Tobin MD 650 mg at 09/14/23 215 alum/mag hydrox.-simethicone oral suspension 30 mL 30 mL Oral Q6H PRN Dwight Tobin MD carveDILOL (COREG) tablet 37.5 mg 37.5 mg Oral BID Barrera Kirkland MD 37.5 mg at 09/14/23 1744 Insulin lispro (HUMALOG) injection Subcutaneous 4x daily w/meals, HS Barrera Kirkland MD 4 Units at 09/14/23 215 And Insulin lispro (HUMALOG) injection Subcutaneous PRN Barrera Kirkland MD 1 Units at 09/13/23 0438 And Dextrose 50% injection 7.5-25 g 7.5-25 g Intravenous As directed PRN Barrera Kirkland MD And glucose (GLUTOSE) 40 % oral gel 1-2 Tube 1-2 Tube Oral As directed PRN Barrera Kirkland MD epoetin miguel-epbx (RETACRIT) injection 10,000 Units 10,000 Units Subcutaneous Weekly Barrera Kirkland MD 10,000 Units at 09/14/23 1900 Folic acid (FOLVITE) tablet 1 mg 1 mg Oral Daily Dwight Tobin MD 1 mg at 09/14/23 0742 hydrALAZINE (APRESOLINE) tablet 100 mg 100 mg Oral Q8H Dwight Tobin MD 100 mg at 09/15/23 0544 HYDROmorphone (DILAUDID) injection 0.2 mg 0.2 mg Intravenous Q3H PRN Barrera Kirkland MD Latanoprost (XALATAN) 0.005 % ophthalmic solution 1 drop 1 drop Both Eyes QHS Dwight Tobin MD 1drop at 09/14/232151 Levothyroxine (SYNTHROID) tablet 25 mcg 25 mcg Oral Before BKF Dwight Tobin MD 25 mcg at 09/15/23 05 Lisinopril (PRINIVIL) tablet 20 mg 20 mg Oral BID Dwight Tobin MD 20 mg at 09/14/231744 Melatonin tablet 3 mg 3 mg Oral QHS Dwight Tobin MD 3 mg at 09/14/232150 Melatonin tablet 6 mg 6 mg Oral QHS PRN Dwight Tobin MD NIFEdipine (PROCARDIA XL) tablet XL 30 mg 30 mg Oral Daily Barrera Kirkland MD 30 mg at 09/14/23740 And NIFEdipine (PROCARDIA XL) tablet XL 60 mg 60 mg Oral QHS Barrera Kirkland MD 60 mg at 09/14/232150 Ondansetron 4mg/2ml (ZOFRAN) injection 4 mg 4 mg Intravenous Q6H PRN Dwight Tobin MD Or Ondansetron (ZOFRAN) tablet 4 mg 4 mg Oral Q6H PRN Dwight Tobin MD oxyCODONE (ROXICODONE) tablet 5 mg 5 mg Oral Q4H PRN Barrera Kirkland MD Pantoprazole (PROTONIX) injection 40 mg 40 mg Intravenous BID Barrera Kirkland MD 40 mg at 09/14/231744 Polyethylene glycol (MIRALAX) packet 17 g 17 g Oral Daily PRN Dwight Tobin MD Sodium chloride 0.9% IV solution 250 mL 250 mL Intravenous PRN Dwight Tobin MD vitamin C/B complex/folic acid (VIRT-CAPS) capsule 1 mg 1 capsule Oral Daily Dwight Tobin MD 1 mg at 09/14/23 0741 Physical Examination PHYSICAL EXAM Temp: [97 F (36.1 C)-98.2 F (36.8 C)] 97.7 F (36.5 C) Pulse (Heart Rate): [64-82] 81 Resp Rate: [16-17] 16 BP: (155-199)/(68-86) 191/76 O2 Sat (%): [94 %-98 %] 94 % There is no height or weight on file to calculate BMI. General: Laying comfortably in bed; in no acute distress. NEUROLOGICAL EXAMINATION MENTAL STATUS: awake and alert; oriented to person, place, year, and month; good attention. Depressed mood and flat affect. Poor insight into condition. Can spell the world forward but not backwards.Poor participation with complex commands. LANGUAGE/SPEECH: fluent; comprehension intact. Can move all 4 extremities at least antigravity. No focal deficits on exam. Diagnostic Data Laboratory data: Lab Results Component Value Date WBC 14.99 (H) 09/15/2023 HGB 8.6 (L) 09/15/2023 HCT 27.2 (L) 09/15/2023 PLATELET 114 (L) 09/15/2023 MCV 95.4 09/15/2023 Lab Results Component Value Date SODIUM 130 (L) 09/15/2023 POTASSIUM 5.4 (H) 09/15/2023 CHLORIDE 94 (L) 09/15/2023 CO2 21 09/15/2023 BUN 58 (H) 09/15/2023 CREATSERUM 4.44 (H) 09/15/2023 GLUCOSE 225 (H) 09/15/2023 No results found for: CHOLESTEROL, TRIG, HDL, LDLCALC Lab Results Component Value Date HGBA1C 5.7 (H) 09/11/2023 No results found for: CPK, TROP Lab Results Component Value Date TSH 1.110 09/11/2023 AST 11 09/11/2023 ALT 7 (L) 09/11/2023 FOLATE 200.71 09/12/2023 Imaging: MRI brain w/wo contrast 09/12/23 No evidence of an acute infarct. Changes of chronic microvascular disease. No intraparenchymal enhancing lesions identified. MRI brain w/wo 08/08/23 1. NO ACUTE INTRACRANIAL PROCESS 2. NO SUSPICIOUS ENHANCEMENT TO SUGGEST METASTASIS 3. MILD NONSPECIFIC WHITE MATTER CHANGE AND MILD-MODERATE VOLUME LOSS Diagnostic procedures: Serum studies: Folate, Vitb12 - normal Serum anti-TPO, anti-microsomal and anti- MPO abs - normal Serum AIE panel - pending CSF studies: WBC < 3, RBC 21 Prot 43, Glc 68 MEID neg CSF AIE panel - pending OCBs - pending Impression Lavinia Durand is a 82 y.o. 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 Patient's change in mental status can be caused by many different etiologies. It can be caused by autoimmune encephalitis, mixed delirium, depression, intracranial mets, subclinical seizures, less likely [employer] infection. She didn't have any focal neurological deficits on exam. Patient's presentation is less likely to be caused by AIE given her presentation of episodes changein mental status, her imaging and CSF findings. She has flat affect on exam and there is high concern possible psychiatric component regarding her presentation. Recommendations: - Recommend psychiatry consult to evaluate from depression and delirium standpoint - Will follow up serum AIE and paraneoplastic panel and CSF AIE panel Neurology will sign off at this point. Thank you for the consultation. If you have any further questions, please contact Neurology Team B. Patient and plan discussed with general neurology attending, Dr. Sandoval. Vianney Schafer MD PGY-5 Neurology * Barrera Kirkland MD - 09/14/2023 3:43 PM EDT [facility] Medicine Daily Progress Note Patient: Lavinia Durand, 1940, [id number] Physician: Barrera Kirkland MD, Attending Physician, GM6 service IMPRESSION/PLAN Lavinia Durand is a 82 y.o. 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 Subacute encephalopathy: Seems to be ongoing/recurrent for past few weeks. 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 Recent head imaging and CSF analysis has been benign. - MRI brain w/ & w/out unremarkable - OSH Serum paraneoplastic panel was positive for ALLEN & PQCaC Abs channel binding abs, however neurology feels ALLEN wasn't elevated to the point they feel it would cause neurologic disease & Ca ch ab is likely a false positive given she does not have sx suggestive of lambert-eaton. - ns cs: trial solumedrol 1g qday x 3 days while awaiting results. Started on 09/11, today is day 3 Work-up as outlined in their note: serum paraneoplastic panel, serum, autoimmune encephalitis panel& CSF autoimmune panel, OG bands pending - repeat LP with prelim results unremarkable & further labs pending as above Abdominal pain Chronic gastritis, submucosal duodenal mass, and melanosis duodenitis on EGD Most recent Hgb stable around 8. EGD reports from [place] suggested EUS with FNA of duodenal lesion. - Bx of stomach inflammation & erosians: mild chronic gastritis with focal intestinal metaplasia. Negative for H. pylori - bx of duodenal area: duodenal mucosa w/ katina gland hyperplasia -GI cs: planning for EGD + EUS w/ bx of duodenal mass (not previously bx). To be completed on Friday - increase PPI to BID & then IV. Possible steroids contributing though was noting similar abd pain yesterday prior to steroids. Can consider adding on carafate after EGD ESRD on HD MWF: Looks euvolemic currently. KATHY AVF. -neph cs -Nephrocaps -renal diet - last received HD 09/11 Steroid-induced hyperglycemia -A1c of 5.7 - Not on insulin at home but was getting Lantus at [place]. Likely steroid- induced hyperglycemia. - con't ISS w/ high hyperglycemia coverage & normal carb coverage + 10u NPH to be given with steroids - carb controlled diet Hypertension: Seems to be historically difficult to control. 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 Hyponatremia - Secondary to fluid shifts. Monitor. Thrombocytopenia - Continue to monitor. Hypothyroidism - Continue thyroid replacement Any conditions listed below are present on admission unless otherwise specified. . DVT prophylaxis with SCD's while monitoring for GI bleed Access: PIV Disposition: likely SNF pending evaluation above Code status is DNR-CCA INTERVAL HISTORY/SUBJECTIVE Awake & oriented, but responses remain slow & limited insight. Notes on going epigastric pain, generalized weakness, & feeling unwell. Similar alertness & cognition to yesterday. BP above goal but better controlled. BS in high 100's-low 200's. OBJECTIVE Temp: [97 F (36.1 C)-98.5 F (36.9 C)] 98.2 F (36.8 C) Pulse (Heart Rate): [64-74] 68 Resp Rate: [16-17] 16 BP: (155-199)/(68-107) 155/68 O2 Sat (%): [96 %-99 %] 96 % Gen: A, A, appears chronically ill ENT: MMM Resp: CTAB, normal effort, on RA Cardio: RRR, normal S1, S2, systolic ejection murmur consistent with known . No SANTIAGO, 2+ peripheral pulses GI: S/ND, NABS, mild epigastric tenderness Neuro: Ox4/4, 4/5 strength of all extremities DATA REVIEW WBC/Hgb/Hct/Plts: 13.09/8.4/26.4/131 (09/13 57) Na/K+/Phos/Mg/Ca: 132/5.0/--/1.9/-- (09/13 57) Bun/Creat/Cl/CO2/Glucose: 39/3.53/96/23/211 (09/13 57-09/14 1139) There is no height or weight on file to calculate BMI. Signed, Barrera Kirkland MD * Barrera Kirkland MD - 09/13/2023 6:05 PM EDT [facility] Medicine Daily Progress Note Patient: Lavinia Durand, 1940, [id number] Physician: Barrera Kirkland MD, Attending Physician, 6 service IMPRESSION/PLAN Lavinia Durand is a 82 y.o. 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 Subacute encephalopathy: Seems to be ongoing/recurrent for past few weeks. 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 Recent head imaging and CSF analysis has been benign. - MRI brain w/ & w/out unremarkable - OSH Serum paraneoplastic panel was positive for ALLEN & PQCaC Abs channel binding abs, however neurology feels ALLEN wasn't elevated to the point they feel it would cause neurologic disease & Ca ch ab is likely a false positive given she does not have sx suggestive of lambert-eaton. - ns cs: will trial solumedrol 1g qday x 3 days while awaiting results. Started on 09/11, today is day 2 Work-up as outlined in their note: serum paraneoplastic panel, serum, autoimmune encephalitis panel& CSF autoimmune panel, OG bands pending - repeat LP with prelim results unremarkable & further labs pending as above Abdominal pain Chronic gastritis, submucosal duodenal mass, and melanosis duodenitis on EGD Most recent Hgb stable around 8. EGD reports from [place] suggested EUS with FNA of duodenal lesion. - Bx of stomach inflammation & erosians: mild chronic gastritis with focal intestinal metaplasia. Negative for H. pylori - bx of duodenal area: duodenal mucosa w/ katina gland hyperplasia -GI cs: planning for EGD + EUS w/ bx of duodenal mass (not previously bx). To be completed on Friday - increase PPI to BID & then IV. Possible steroids contributing though was noting similar abd pain yesterday prior to steroids. Can consider adding on carafate after EGD ESRD on HD MWF: Looks euvolemic currently. LUE AVF. -neph cs -Nephrocaps -renal diet - last received HD 09/11 Steroid-induced hyperglycemia -A1c of 5.7 - Not on insulin at home but was getting Lantus at [place]. Likely steroid- induced hyperglycemia. - con't ISS w/ high hyperglycemia coverage & normal carb coverage + 10u NPH to be given with steroids - carb controlled diet Hypertension: Seems to be historically difficult to control. - con't coreg 25mg BID. HR in 60's - con't lisinopril 20mg BID - cont hydralazine 100mg TID - changed amlodipine to nifedpine. Increasing nifedepine to 30 qAM & 60mg qHSmg BID. 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 Thrombocytopenia - Continue to monitor. Hypothyroidism - Continue thyroid replacement Any conditions listed below are present on admission unless otherwise specified. . DVT prophylaxis with SCD's while monitoring for GI bleed Access: PIV Disposition: likely SNF pending evaluation above Code status is DNR-CCA per conversation with daughter INTERVAL HISTORY/SUBJECTIVE Awake & oriented. Resting in bed. Notes on going epigastric pain & generalized weakness. Similar alertness & cognition to yesterday. BS as high has mid 200's yesterday evening/morning after steroids. Improved this afternoon even after steroids to mid 100's OBJECTIVE Temp: [97.6 F (36.4 C)-98.4 F (36.9 C)] 98.1 F (36.7 C) Pulse (Heart Rate): [60-92] 92 Resp Rate: [16-18] 16 BP: (159-183)/(69-81) 173/77 O2 Sat (%): [94 %-98 %] 95 % Weight: [45.7 kg (100 lb 12.8 oz)] 45.7 kg (100 lb 12.8 oz) Gen: A, A, appears chronically ill ENT: MMM Resp: CTAB, normal effort, on RA Cardio: RRR, normal S1, S2, systolic ejection murmur consistent with known . No SANTIAGO, 2+ peripheral pulses GI: S/NT/ND, NABS Neuro: Ox4/4, 4/5 strength of all extremities DATA REVIEW WBC/Hgb/Hct/Plts: 8.28/9.7/29.3/140 (09/12 040) Na/K+/Phos/Mg/Ca: 137/4.8/--/1.8/-- (09/12 405) Bun/Creat/Cl/CO2/Glucose: 24/2.49/99/28/145 (09/12 0406-09/12 1557) There is no height or weight on file to calculate BMI. Signed, Barrera Kirkland MD * Barrera Kirkland MD - 09/12/2023 9:04 PM EDT [facility] Medicine Daily Progress Note Patient: Lavinia Durand, 1940, [id number] Physician: Barrera Kirkland MD, Attending Physician, GM6 service IMPRESSION/PLAN Lavinia Durand is a 82 y.o. 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 Subacute encephalopathy: Seems to be ongoing/recurrent for past few weeks. 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 Recent head imaging and CSF analysis has been benign. - MRI brain w/ & w/out unremarkable - Serum paraneoplastic panel was positive for ALLEN & PQCaC Abs channel binding abs, however neurology feels ALLEN wasn't elevated to the point they feel it would cause neurologic disease & Ca chab is likely a false positive given she does not have sx suggestive of lambert-eaton. - ns cs: will trial solumedrol 1g qday x 3 days while awaiting results. Work-up as outlined in their note: serum paraneoplastic panel, serum, autoimmune encephalitis panel& CSF autoimmune panel, OG bands pending - repeat LP with prelim results unremarkable & further labs pending as above Acute on chronic anemia Abdominal pain Chronic gastritis, submucosal duodenal mass, and melanosis on EGD Most recent Hgb stable around 8. EGD reports from [place] suggested EUS with FNA of duodenal lesion. -GI cs: planning for EGD + EUS w/ bx. To be completed on Friday -follow up biopsies from [place] - con't PPI ESRD on HD MWF: Looks euvolemic currently. Has LUE AVF. -consult Neph for continuation of HD -Nephrocaps -renal diet - last received HD today Steroid-induced hyperglycemia? -A1c of 5.7 - Not on insulin at home but was getting Lantus at [place]. Likely steroid- induced hyperglycemia. - will increase ISS to high hyperglycemia coverage & normal carb coverage. Will plan to give NPH tomorrow with steroid dose, will monitor needs to determine dosing. Hypertension: Seems to be historically difficult to control. -inpatient regimen at [place] was Coreg, amlodipine, lisinopril, hydralazine. - changed amlodipine to nifedpine. Increasing nifedepine to 30mg BID. 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 Hyponatremia - Secondary to fluid shifts. Monitor. Thrombocytopenia - Continue to monitor. Hypothyroidism - Continue thyroid replacement Any conditions listed below are present on admission unless otherwise specified. . DVT prophylaxis with SCD's while monitoring for GI bleed Access: PIV Disposition: likely SNF pending evaluation above Code status is DNR-CCA per conversation with daughter INTERVAL HISTORY/SUBJECTIVE Pt seen in HD. Awake & oriented. Notes some abd pain. Generalized weakness. Called daughter & updated. OBJECTIVE Temp: [97.5 F (36.4 C)-98.6 F (37 C)] 98.4 F (36.9 C) Pulse (Heart Rate): [64-86] 72 Resp Rate: [16-22] 16 BP: (144-200)/(63-104) 171/72 O2 Sat (%): [94 %-99 %] 94 % Weight: [46.7 kg (103 lb)] 46.7 kg (103 lb) Gen: A, A, appears chronically ill ENT: MMM Resp: CTAB, normal effort, on RA Cardio: RRR, normal S1, S2, No SANTIAGO, 2+ peripheral pulses GI: S/NT/ND, NABS Neuro: Ox4/4, 4/5 strength of all extremities DATA REVIEW WBC/Hgb/Hct/Plts: 9.75/8.9/26.8/121 (09/11 405) Na/K+/Phos/Mg/Ca: 132/5.3/4.3/1.9/-- (09/11 405) Bun/Creat/Cl/CO2/Glucose: 59/4.24/97/22/320 (09/11 405-09/11 1944) There is no height or weight on file to calculate BMI. Signed, Barrera Kirkland MD * Miriam Sterling [facility] - 09/12/2023 1:41 PM EDT Department of Pharmacy Renal Documentation Note Patient: Lavinia Durand Room/Bed: [facility] Assessment and Plan: The patient is currently maintained on intermittent hemodialysis. The current medication profile was reviewed for appropriate dosing and timing of prescribed therapies. No adjustments to medication therapy are necessary at this time. A pharmacist will continue to follow patient and recommend drug levels and dose changes as clinically appropriate. Please contact with any questions, Name: Miriam SAAD Sterling Phone: [phone] Date/Time: 09/12/2023 1:41 PM * Destiny Steve RN - 09/12/2023 1:08 PM EDT Plan of Care- Treatment Updates: Start IVMP 1000 mg Q24h for 3 days per neurology. Discharge updates: Patient able to return to [facility] and does HD in house. Reached out to the facility to see what needs done before the patient is able to go back. [place] [phone] Destiny MENA, RN Clinical Medical Tech [address] [place] [address] * Anastacio Rausch MD - 09/12/2023 12:00 PM EDT Nephrology Inpatient Follow up Note Reason for Initial Consult: ESRD Impression and Recommendations: 82 F with ESRD on HD admitted with subacute encephalopathy. Nephrology is following for dialysis management. ESRD -continue HD on MWF schedule while admitted. Tolerating today. -check weight daily and after each dialysis treatment -check chem 6 MWF while admitted -keep strict Is and Os -give nephrocaps/nephronex daily -low Na, low K, low phos, high protein diet. 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 Nephrology ? ESRD [facility] team) Robbin Rausch MD Marketing Compliance Manager, Division of Nephrology Pager [phone] Subjective/Interval History: Patient seen and evaluated. Physical Examination: BP (!) 185/104 Pulse 67 Temp 97.8 F (36.6 C) (Oral) Resp 19 Wt 46.4 kg (102 lb 3 oz) SpO2 98% Smoking Status Never I/O last 3 completed shifts: In: 238 [P.O.:238] Out: 50 [Urine:50] General: Alert and comfortable appearing. Respiratory: Respiratory effort is normal. Cardiovascular: Normal rate, regular rhythm Extremities: Minimal lower extremity edema bilaterally. Medications: Current Facility-Administered Medications Medication Dose Route Frequency Provider Last Rate Last Admin Acetaminophen (TYLENOL) tablet 650 mg 650 mg Oral Q4H PRN Dwight Tobin MD 650 mg at 09/11/232022 alum/mag hydrox.-simethicone oral suspension 30 mL 30 mL Oral Q6H PRN Dwight Tobin MD carveDILOL (COREG) tablet 25 mg 25 mg Oral BID Dwight Tobin MD 25 mg at 09/12/23 0749 Insulin lispro (HUMALOG) injection Subcutaneous 4x daily w/meals, HS Dwight Tobin MD 2 Units at09/11/232025 And Insulin lispro (HUMALOG) injection Subcutaneous PRN Dwight Tobin MD And Dextrose 50% injection 7.5-25 g 7.5-25 g Intravenous As directed PRN Dwight Tobin MD And glucose (GLUTOSE) 40 % oral gel 1-2 Tube 1-2 Tube Oral As directed PRN Dwight Tobin MD Folic acid (FOLVITE) tablet 1 mg 1 mg Oral Daily Dwight Tobin MD 1 mg at 09/12/23 0749 hydrALAZINE (APRESOLINE) tablet 100 mg 100 mg Oral Q8H Dwight Tobin MD 100 mg at 09/12/23 0611 Latanoprost (XALATAN) 0.005 % ophthalmic solution 1 drop 1 drop Both Eyes QHS Dwight Tobin MD 1drop at 09/11/232023 Levothyroxine (SYNTHROID) tablet 25 mcg 25 mcg Oral Before BKF Dwight Tobin MD 25 mcg at 09/12/23 0611 Lidocaine 1% (PF) (XYLOCAINE MPF) 1 % injection 1-10 mL 1-10 mL Infiltration Once RISHI Berman Lisinopril (PRINIVIL) tablet 20 mg 20 mg Oral BID Dwight Tobin MD 20 mg at 09/12/23 0749 Melatonin tablet 3 mg 3 mg Oral QHS Dwight Tobin MD 3 mg at 09/11/232023 Melatonin tablet 6 mg 6 mg Oral QHS PRN Dwight Tobin MD NIFEdipine (PROCARDIA XL) tablet XL 30 mg 30 mg Oral QHS Barrera Kirkland MD 30 mg at 09/11/232022 Ondansetron 4mg/2ml (ZOFRAN) injection 4 mg 4 mg Intravenous Q6H PRN Dwight Tobin MD Or Ondansetron (ZOFRAN) tablet 4 mg 4 mg Oral Q6H PRN Dwight Tobin MD Pantoprazole (PROTONIX) tablet DR 40 mg 40 mg Oral Daily Dwight Tobin MD 40 mg at 09/12/23 0749 Polyethylene glycol (MIRALAX) packet 17 g 17 g Oral Daily PRN Dwight Tobin MD Sodium chloride 0.9% IV solution 250 mL 250 mL Intravenous PRN Dwight Tobin MD vitamin C/B complex/folic acid (VIRT-CAPS) capsule 1 mg 1 capsule Oral Daily Dwight Tobin MD 1 mg at 09/12/23 0749 Relevant Data Reviewed: Lab Results Component Value Date CREATSERUM 4.24 (H) 09/12/2023 CREATSERUM 3.24 (H) 09/11/2023 BUN 59 (H) 09/12/2023 BUN 42 (H) 09/11/2023 SODIUM 132 (L) 09/12/2023 POTASSIUM 5.3 (H) 09/12/2023 CHLORIDE 97 (L) 09/12/2023 CO2 22 09/12/2023 CALCIUM 8.9 09/11/2023 PHOSPHORUS 4.3 09/12/2023 ALBUMIN 2.7 (L) 09/11/2023 Lab Results Component Value Date WBC 9.75 09/12/2023 HGB 8.9 (L) 09/12/2023 PLATELET 121 (L) 09/12/2023 Lab Results Component Value Date CALCIUM 8.9 09/11/2023 PHOSPHORUS 4.3 09/12/2023 Lab Results Component Value Date HGB 8.9 (L) 09/12/2023 MCV 91.2 09/12/2023 FERRITIN 1,580.8 (H) 09/12/2023 IRON 149 09/12/2023 IRONSATURAT 87 (H) 09/12/2023 TIBC 171 (L) 09/12/2023 TRANSFERRIN 137 (L) 09/12/2023 * Vianney Schafer MD - 09/12/2023 9:49 AM EDT Neurology Plan of Care Note Patient was discussed during the rounds. LP and MRI was performed yesterday. LP results were noninfectious and non inflammatory with normal WBC counts and normal protein. His MRI brain w/wo contrast does not show any acute intracranial pathology and is consistent with diffusecerebral and cerebellar atrophy with some gliotic changes on my read. Her thyroid antibodies were also negative. Serum studies: Folate, Vitb12 - normal Serum anti-TPO, anti-microsomal and anti- MPO abs - normal Serum AIE panel - pending CSF studies: WBC < 3, RBC 21 Prot 43, Glc 68 MEID neg CSF AIE panel - pending OCBs - pending MRI brain w/wo contrast 09/12/23: pending Recommendations: - Start IVMP 1000 mg Q24h for 3 days - Recommend starting stomach protection with PPI or antiacids while on steroids - Will follow up on MRI brain w/wo - Delirium precautions Thank you for the consultation. If you have any further questions, please contact Neurology Team B. Patient and plan discussed with general neurology attending, Dr. Sandoval. Vianney Schafer MD PGY-5 Neurology * Barrera Kirkland MD - 09/11/2023 7:00 PM EDT [facility] Medicine Daily Progress Note Patient: Lavinia Durand, 1940, [id number] Physician: Barrera Kirkland MD, Attending Physician, 6 service IMPRESSION/PLAN Lavinia Durand is a 82 y.o. 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 Subacute encephalopathy: Seems to be ongoing/recurrent for past few weeks. 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 Recent head imaging and CSF analysis has been benign. - Serum paraneoplastic panel was positive for ALLEN & PQCaC Abs channel binding abs, however neurology feels ALLEN wasn't elevated to the point they feel it would cause neurologic disease & Ca chab is likely a false positive given she does not have sx suggestive of lambert-eaton. They also question why she had improvement with the dosing of steroids she did as she would be considered to havebeen under-dosed from an autoimmune encephalitis steroid dosing perspective - ns cs: advises against steroids for now until etiology better understood so as to determine tx treatment plan. Work-up as outlined in their note -serum paraneoplastic panel, autoimmune encephalitis panel - repeat LP with prelim results unremarkable & further labs pending Acute on chronic anemia Abdominal pain Chronic gastritis, submucosal duodenal mass, and melanosis on EGD Most recent Hgb stable around 8. EGD reports from [place] suggested EUS with FNA of duodenal lesion. -type and cross -GI cs: planning for EGD + EUS w/ bx, timing TBD -consult GI to see if further inpatient workup is warranted -follow up biopsies from [place] ESRD on HD MWF: Looks euvolemic currently. Has LUE AVF. -consult Neph for continuation of HD -Nephrocaps -renal diet Hypertension: Seems to be historically difficult to control. -inpatient regimen at [place] was Coreg, amlodipine, lisinopril, hydralazine. - will change amlodipine to nifedpine & continue to monitor. 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 May just be steroid-induced hyperglycemia. -A1c of 5.7 -cover with Humalog low CC and standard sliding scale for now Hypothyroidism: -continue home Synthroid Glaucoma:-continue home latanoprost at bedtime Complexity. Hyponatremia - Secondary to fluid shifts. Monitor. Thrombocytopenia - Continue to monitor. Hypothyroidism - Continue thyroid replacement Any conditions listed below are present on admission unless otherwise specified. . DVT prophylaxis with SCD's while monitoring for GI bleed Access: PIV Disposition: likely SNF pending evaluation above Code status is DNR-CCA per conversation with daughter INTERVAL HISTORY/SUBJECTIVE Pt sleeping in bed. Easily arousable but generalized fatigued & only participating in partial conversation. Partially oriented (person, location, not date). Denies pain but answers are slow &limited. Called daughter & updated. OBJECTIVE Temp: [97.4 F (36.3 C)-98.6 F (37 C)] 98.6 F (37 C) Pulse (Heart Rate): [62-80] 80 Resp Rate: [16-18] 16 BP: (147-193)/(66-78) 147/67 O2 Sat (%): [95 %-99 %] 95 % Weight: [46.4 kg (102 lb 3 oz)] 46.4 kg (102 lb 3 oz) Gen: A, A, appears chronically ill ENT: MMM Resp: CTAB, normal effort, on RA Cardio: RRR, normal S1, S2, No SANTIAGO, 2+ peripheral pulses GI: S/NT/ND, NABS Neuro: Ox2/4, 3/5 strength of all extremities DATA REVIEW WBC/Hgb/Hct/Plts: 12.12/8.5/25.8/125 (09/10 010) Na/K+/Phos/Mg/Ca: 132/4.6/--/1.6/8.9 (09/10 010) Bun/Creat/Cl/CO2/Glucose: 42/3.24/99/25/160 (09/10 0100-09/10 1536) Ptt/Pt/Inr: --/14.1/1.1 (09/10 132) There is no height or weight on file to calculate BMI. Signed, Barrera Kirkland MD * Uzma Mendez RN - 09/11/2023 4:20 PM EDT Discharge Planning Patient Assessment Admission Assessment Patient Assessment Completed: Initial Anticipated discharge disposition: Assisted Facility Reason for Admission: Subacute encephalopathy Is the patient able to participate in the assessment?: No Explanation of why patient is unable to participate: AMS Information source: Review of Medical Record, Child(brock) Information Source Name/Contact: Diya Durand [phone] Demographics Verified and Updated: Yes Has the patient been admitted to any hospital in the last 30 days?: Transferred From Outside Hospital Advanced Care Planning Has the patient completed Advance Directives?: Completed, Available in Medical Record Reviewed for accuracy with patient?: Unable to Verify Legal Next of Kin Does the patient have a Guardian?: No Spouse: Yes Adult Child(brock), List All Adult Children: Yes Name and Contact information: Hedy Durand daughter PH [phone] Would you like to add additional adult children?: Yes Name and Contact information: Diya Durand son PH [phone] Referral to Social Work to Identify Legal Next of Kin?: No Reviewed and Updated in Demographics? : Yes Outpatient Providers Does patient have a primary care physician? : Yes When was the patient's last PCP visit?: (Pt currently in SNF x 1 month) Does the patient follow any specialists?: Yes Reviewed and updated Care Team?: Yes Patient Care Team: Osmani Morgan MD as PCP - General (Internal Medicine) Environment/Caregivers Is the patient from a facility or snf?: Yes Facility Level of Care: Skilled Name of Facility or Institution and Contact Phone/Fax: [facility] PH [phone] Living Environment: (Admitted to facility 1 month ago) Patient Caregiving Responsibilities: Other Patient-identified caregiver/support network: Other Services Does the patient use a home health or hospice agency?: No Current with dialysis?: Yes Dialysis Overview Updated?: Yes Does the patient use any community programs or services?: No Does patient use DME? : wheelchair, rollator Does the patient use oxygen?: No Does patient use medical supplies? : none Anticipated Changes Related to Illness/Injury? : Unknown at this time Initial ADLs Prior to Arrival What is the patient's baseline cognitive functioning prior to this acute illness?: completely dependent Is the patient's baseline functioning changed by this acute illness? : Yes Changes observed : Cognitive Are there therapy or specialists consults?: Yes Select consult type: PT, OT CM to recommend therapy or other consults? : No Medication Management Does the patient have prescription insurance coverage? : Yes Is the patient on Anticoagulation? 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 : No Employed?: Retired Coping/Stress Concerns about patient s coping and stress?: Unable to Assess Values and Beliefs Cultural or denominational practices that may impact discharge planning and/or medical care?: Yes Explanation of practices or beliefs: no beef products Initial Discharge Planning Anticipated discharge disposition: Assisted Facility Transportation Available for Discharge: Ambulance Anticipated DME: none Anticipated Services at Discharge: Outpatient follow up, Assisted, Physical Therapy, Occupational Therapy Patient Assessment Completed: Initial Expected Discharge Date: 09/15/23 Discharge Planning Summary Anticipate discharge to [facility]. Pt currently receiving hemodialysis inpatient at [facility] prior to admit. HCPOA received uploaded into chart. Care Management Plan CM to follow for discharge planning needs and coordination. Uzma hCester RN BSN Clinical Mold Yard Supervisor * RISHI Berman - 09/11/2023 2:54 PM EDT I have reviewed the most recent H&P or progress note prior to the planned procedure. No new complaints or concerns per patient. Okay to proceed with scheduled procedure. RISHI Berman * Che Haddad, PT - 09/11/2023 11:42 AM EDT Acute Physical Therapy Evaluation Prior Gross Functional Mobility: Current AM-PAC score(s): CURRENT AM-PAC Mobility Raw Score: 17 Based on the above AM-PAC score(s) and PT clinical judgment, patient is a good candidate for discharge to Assisted Facility return Barriers to discharge home: Patient needs assistance with functional mobility Mobility equipment available at home: rollator ADL equipment available at home: Equipment needed for discharge: none Current therapy frequency recommendation in acute: Therapy Frequency: 3 times a week Precautions and Weightbearing Status: Existing Precautions/Restrictions: fall Patient Safety Communication Prior to Visit: Nursing Subjective: Pt agreeable for therapy. Pt reports not being out of bed this date. Pain: General Pain Documentation (Adult, OB, Peds) Presence of Pain: reports pain/discomfort Pain Location: arm, right Home Setting Residence: House Lives With: (family) First floor setup: bedroom Mobility Equipment Available: rollator Home Environment Details: Pt is a questionable historian. Per chart pt is from SNF. Previous Level of Function Assistive Device: (rollator) Bed Mobility: independent Transfers: independent Objective/Observation: Vitals/Vitals Responses to Treatment: vss. O2 Device: room air Cognition Overall Cognitive Status: Impaired Arousal/Alertness: Appropriate responses to stimuli Orientation Level: Oriented to person Extremity Assessments: RLE Assessment RLE Assessment: Within Functional Limits LLE Assessment LLE Assessment: Within Functional Limits Mobility Assessment: Supine to Sit Mobility Gary Level: Supine->Sit: contact guard assist Bed Features/Set-up: Supine->Sit: Head of bed elevated, Use of bed rail Skilled Rationale: Verbal cues, Technique of activity, Cues for increased safety Skilled Intervention/Details: Supine->Sit: to/from supine Balance: Sitting Balance Static Sitting-Level of Assistance: Contact guard Dynamic Sitting-Level of Assistance: Contact guard Skilled Rationale: Verbal cues, Technique of activity, Cues for increased safety Standing Balance Static Standing-Level of Assistance: Contact guard Dynamic Standing-Level of Assistance: Contact guard Standing-Balance Support: Gait belt, 2 wheeled walker Skilled Rationale: Verbal cues, Technique of activity, Cues for increased safety Transfer Assessment: Sit to Stand Transfer Gary Level: Sit->Stand: minimum assist (75% patient effort) Assistive Device: Sit->Stand: gait belt, 2 wheeled walker Skilled Rationale: Positioning, Sequencing, Hand placement, Verbal cues, Tactile cues, Technique ofactivity, Cues for increased safety Skilled Intervention/Details: Sit->Stand: to/from varied surfaces Gait/Functional Mobility: Gait Assessment Gary Level: Gait: contact guard assist Assistive Device: Gait: gait belt, 2 wheeled walker Ambulation Distance (Feet): 30 Gait Deviations Identified: decreased nadeen, decreased gait speed Gait Skilled Rationale: verbal, tactile, demonstration, upright posture, hand placement on assistive device, keeping hands on assistive device, safety to avoid obstacles, proximity of assistive device Skilled Intervention/Details - Gait: x1 sitting rest to complete distance Stairs: Outcome Score(s): Pt with average gait speed of .35 meters/sec on this date during testing, placing patient in walking speed classification of a Household Ambulator. Walking speed classification Household ambulation Limited Community ambulation Community ambulation [facility] safely 0 - 0.4 meter/sec 0.4-0.8 meter/sec 0.8 - 1.3 meter/sec >1.4 meter/sec Jack Welch, Maritza Rapp, Walking speed: the functional vital sign. J Aging Phys Act 2015; 23(2):314-22. CURRENT [facility] Basic Mobility Inpatient Short Form Turning over in bed: 3 - A Little Assistance Moving from lying on back to sittin - A Little Assistance Moving to and from bed to chair: 3 - A Little Assistance Sitting/standing from chair: 3 - A Little Assistance Walk in hospital room: 3 - A Little Assistance Climbing 3-5 steps with a railin - A Lot of Assistance CURRENT [facility] Mobility Raw Score: 17 CURRENT -PAC Mobility Functional Limitation: 50.57% Impaired in Basic Mobility Interventions: Assessment & Plan: Per chart: Pt is Lavinia altman 82 y.o. female presenting 09/10/2023 Patient Active Problem List Diagnosis Encephalopathy Anemia (Low HGB) Renal disease (High Serum Creatinine) Electrolyte disorder (K, Cl, or Na) Thrombocytopenia (Low Platelets) Past Medical History: Diagnosis Date ESRD (end stage renal disease) Glaucoma Hypothyroidism Urothelial cancer Past Surgical History: Procedure Laterality Date KNEE REPLACEMENT NEPHRECTOMY PARTIAL HYSTERECTOMY TURP TURBT VEIN STRIPPING Pt is appearing to be most limited with: functional ambulation and functional transfers Pt was seen for therapy evaluation related to discharge recommendations. Exam findings include impairments in: Strength, Balance, Pain, Posture, Transfers, Gait/Locomotion,Aerobic capacity/endurance. These impairments contribute to functional limitations including: Increased fall risk. Current clinical presentation is Evolving Evolving - changing/inconsistent clinical characteristics(Moderate). Patient history factors impacting Plan Of Care include: pmhx. Patient will benefit fromskilled physical therapy to address these impairments, functional limitations, and participation restrictions and has good rehab potential to achieve therapy goals. Planned Therapy Interventions: balance training, bed mobility training, endurance, functional activity tolerance, gait training, strengthening, transfer training Learners: Patient Education provided: Adaptive equipment use Teaching method: Verbal Education/Instruction Learner response: Needs review Learning considerations: Cognition Plan for next session: progress gait training and progress activity tolerance Acute PT Goals Plan of Care by Che Haddad PT at 09/11/2023 11:42 AM Version 1 of 1 Problem: PT - General Goals Goal: Pt will perform bed mobility within precautions at independence in order to improve functional mobility and safety. Outcome: Ongoing Goal: Pt will perform transfers within precautions with independence with without an assistive device in order to improve functional mobility and safety. Outcome: Ongoing Goal: Pt will ambulate 100 feet within precautions with least restrictive device at independence toimprove ability to navigate home environment. Outcome: Ongoing PT treatment consisted of the following to progress towards the above goal(s): PT Evaluation and Treatment Time PT Evaluation (Moderate) Time Entry: 10 Gait Training Time Entry: 15 Evaluating Therapist: Che Haddad PT Additional Details: PT Co-Eval/Treatment Information Co-evaluation/co-treatment performed?: Yes, simultaneous billable skilled care was necessary due tomedical complexity and functional deficits Other discipline: OT Rationale for need to co-eval/treat: cognitive issues Co-treatment goal focus: balance, mobility, transfer Evaluation Complexity Components History: Moderate (1-2 personal factors and/or comorbidities) Body Systems Review: Moderate (Addressing a total of 3 or more elements) Clinical Presentation: Evolving - changing/inconsistent clinical characteristics (Moderate) Clinical Decision Making: Moderate Time In: 15 Time Out: 0940 Total Visit Time: 25 minutes Total Treatment Time (skilled, billable minutes): 25 minutes PPE used during patient interaction: facemask, gloves Patient location at end of session: bed with head of bed elevated, RN aware Alarms on at end of session: bed alarm Needs in reach. Upon discontinuation of Acute Care Physical Therapy Services or patient discharge from the hospitalthis note represents the current Physical Therapy Discharge Summary. * Fabricio Hahn OT - 09/11/2023 9:39 AM EDT Acute Occupational Therapy Evaluation Prior Gross Functional Mobility: used device Current AM-PAC score(s): CURRENT AM-PAC Activity Raw Score: 17 Based on the above AM-PAC score(s) and OT clinical judgment, discharge destination recommendation is: Assisted Facility return (vs. Return home with 24h supervision and consistent physical support) Barriers to discharge home: Cognitive impairments that impact safety (see note below), Patient needs assistance with ADLs, Patient needs assistance with functional mobility, Patient needs assistance with IADLs (see note below), Patient needs assistance with medication management, Patient needs assistance with self-care for medical condition (see note below) Mobility equipment available at home: rollator ADL equipment available at home: shower chair, grab bars Equipment recommendations for discharge: none Current therapy frequency recommendation(s) in acute: 4 times a week Activity Recommendations for outside of rehab session: x1 to bathroom with FWW Precautions and Weightbearing Status: OT Existing Precautions/Restrictions: fall Patient Safety Communication Prior to Visit: Nursing Subjective: They patient stated she was not sure about returning to SNF vs. home Pain: General Pain Documentation (Adult, OB, Peds) Presence of Pain: reports pain/discomfort Pain Location: generalized DVPRS (Defense and Veterans Pain Rating Scale) DVPRS: Rest: 5- moderate pain DVPRS: Activity: 5- moderate pain Home Setting Residence: House Lives With: (Son and DIL) Patient receives help from : none Patient reported support for discharge plannin hour supervision First floor setup: bedroom, walk-in shower Number of stairs to enter home: 0 Number of stairs in home: 0 Mobility Equipment Available: rollator ADL Equipment Available: shower chair, grab bars Home Environment Details: No falls reported prior Previous Level of Function Gross Functional Mobility: used device Assistive Device: 4 wheeled walker Prior level ADL Overview: Independent with all ADLs Bed Mobility: independent Transfers: independent Prior Level of Function Details: Patient denied overt limitations prior to initial medical onset ofsymptoms IADL History IADLs: other (see comments) IADL Comments: Specifics unknown of patient vs. family responsibilities Objective/Observation: Vitals/Vitals Responses to Treatment: WFL throughout, no abnormal response to therapy observed. O2 Device: room air Vision Screen Currently wearing corrective lenses: No Speech Speech: slurred speech Hearing Hearing: no gross deficits noted Cognition Overall Cognitive Status: Impaired Arousal/Alertness: Delayed responses to stimuli Following Commands: Follows one step commands with increased time, Follows one step commands with repetition Safety Judgment: Decreased awareness of need for assistance, Decreased awareness of need for safety Awareness of Errors: Assistance required to identify errors made, Assistance required to correct errors made Deficits: Decreased awareness of deficits Attention Span: Attends with cues to redirect Memory: Decreased recall of biographical information, Decreased short term memory Problem Solving: Assistance required to identify errors made, Assistance required to generate solutions Cognition Comments: Consistent cues provided for initiation, sequencing and safety during basic andfamiliar tasks ADLs: ADL Assessment: Eating Deficit, Grooming Deficit, Bathing Deficit, UE Dressing Deficit, LE DressingDeficit, Toileting Deficit ADL Anticipated Performance (ADLs not directly observed this session): Bathing, LE Dressing ADL Comments: Increased support required due to both physical and cognitive limitations Eating Assistance: Set up supervision Grooming Assistance: Minimal Grooming Location: standing at sink Bathing Assistance: Moderate Bathing Location: bed level, edge of bed UE Dressing Assistance: Minimal UE Dressing Location: bed level, edge of bed LE Dressing Assistance: Minimal LE Dressing Location: edge of bed, standing Toilet Assistance: Contact guard assist Toileting Location: toilet Extremity Assessments: RUE Assessment RUE Assessment: Within Functional Limits Right UE Assessment Details: Functionally intact, unable to participate in formal MMT LUE Assessment LUE Assessment: Within Functional Limits Left UE Assessment Details: Functionally intact, unable to participate in formal MMT Balance: Sitting Balance Static Sitting-Level of Assistance: Standby Dynamic Sitting-Level of Assistance: Contact guard Standing Balance Static Standing-Level of Assistance: Contact guard Dynamic Standing-Level of Assistance: Minimum assistance Neuro: Proprioception Proprioception: intact Gross Coordination Gross Coordination: bilat UE intact Fine Motor Coordination Additional Documentation: No Skin and Edema: Skin Integrity Skin Integrity Description: WFL Edema Edema: none noted Mobility Assessment: Rolling/Turning Mobility Gary Level: Rolling/Turning: supervision Scooting Bridging Mobility Gary Level: Scooting/Bridging: dependent (less than 25% patient effort) Skilled Intervention/Details: Scooting/Bridging: No patient initiation despite cues and instruction Supine to Sit Mobility Gary Level: Supine->Sit: minimum assist (75% patient effort) Bed Features/Set-up: Supine->Sit: Head of bed elevated, Use of bed rail Sit to Supine Mobility Gary Level: Sit->Supine: supervision Transfer Assessment: Sit to Stand Transfer Gary Level: Sit->Stand: minimum assist (75% patient effort) Assistive Device: Sit->Stand: gait belt, 2 wheeled walker Skilled Rationale: Positioning, Sequencing, Hand placement Stand to Sit Transfer Gary Level: Stand->Sit: contact guard assist Toilet Transfer Gary Level: Toilet: contact guard assist Assistive Device: Toilet: gait belt, 2 wheeled walker Functional Mobility: Functional Mobility Gary Level: Functional Mobility/Gait: minimum assist (75% patient effort) Assistive Device: Functional Mobility/Gait: 2 wheeled walker, gait belt Skilled Intervention/Details - Functional Mobility/Gait: Consistent physical assistance for FWW placement and mobility Outcome Score(s): [facility] Daily Activity Inpatient Short Form Putting on/Taking Off Lower Body Clothin - A Little Assistance Bathin - A Lot of Assistance Toiletin - A Little Assistance Putting on/Taking Off Upper Body Clothin - A Little Assistance Groomin - A Little Assistance Eatin - A Little Assistance [facility] Activity Raw Score: 17 CURRENT [facility] Activity Functional Limitation/Modifier: 50.11% Currently Impaired in Daily Activity- CK Interventions: Assessment & Plan: Patient was admitted for AMS, anemia and seen for therapy evaluation related to assessment of ADL participation and associated mobility. Exam findings include impairments in: balance, attention, pain with movement, posture, ROM, strength, transfers. These impairments contribute to occupational performance limitations including bathing, dressing, grooming, toileting, functional mobility, ADL transfers. The following factors impact the plan of care: Cognitive limitations Psychosocial Factors Positive indicators for performance: Adequate support system, Positive interpersonal relationships Possible barriers for performance: (Questionable 24h and physical support available.) Patient will benefit from skilled occupational therapy to address these impairments, occupational performance limitations, and participation restrictions. Patient's rehab potential is: good. Planned Therapy Interventions (OT Eval): ADL retraining, IADL retraining, balance training, bed mobility training, transfer training Patient Instruction/Education this session: Learners: Patient Education provided: Balance training, Bed mobility, Plan of care, Positioning, Safety Teaching method: Verbal Education/Instruction Learner response: No evidence of learning Learning preferences: Auditory Learning considerations: Cognition Plan for next session: Progressive upright ADls Acute OT Goals Plan of Care by Fabricio Hahn OT at 09/11/2023 9:39 AM Version 1 of 1 Problem: OT - ADLs Goal: Lower Body Dressing - Patient will complete lower body dressing tasks with modified independence using adaptive equipment/compensatory strategies as needed for improved ability to complete self-care activities. Outcome: Progressing Goal: Toileting - Patient will complete toileting task with modified independence and adaptive equipment as needed for improved ability to safely complete self-care activities. Outcome: Progressing Problem: OT - Transfers Goal: Transfers Toilet/ Bedside Commode - Patient will transfer to/from toilet/bedside commode withmodified independence for improved ability to safely complete ADLs. Outcome: Progressing Problem: OT - Endurance Goal: Endurance Functional Mobility - Patient will complete distance needed for common household mobility with no rest breaks for improved tolerance to safely complete I/ADL's Outcome: Progressing Problem: OT - Cognition Goal: Cognition Simple ADL - Patient will demonstrate improved cognition, completing simple ADL task for 15 minutes with no greater than min cues required to maintain attention. Outcome: Progressing OT treatment consisted of the following to work and progress towards the above goal(s): OT Evaluation and Treatment Time OT Evaluation (Low) Time Entry: 25 Evaluating Therapist: Fabricio Hahn OT Additional Details: OT Co-Eval/Treatment Information Co-evaluation/co-treatment performed?: Yes, simultaneous billable skilled care was necessary due tomedical complexity and functional deficits Other discipline: PT Rationale for need to co-eval/treat: cognitive issues, coordination issues, postural control OT Evaluation Complexity Occupational Profile and Client History: Moderate - expanded history Assessment of Occupational Performance: Moderate (3-5 performance deficits) Clinical Decision/Performance Deficits: Moderate (detailed assessments w/several treatment options) Time In: 913 Time Out: 938 Total Visit Time: 25 minutes Total Treatment Time (skilled, billable minutes): 25 minutes PPE used during patient interaction: facemask, gloves Patient location at end of session: bed with head of bed elevated Alarms on at end of session: none Needs in reach. Upon discontinuation of Acute Care Occupational Therapy Services or patient discharge from the hospital this note represents the current Occupational Therapy Discharge Summary. documented in this encounterU [facility] Consult note* Fabricio Sanchez MD - 09/15/2023 3:09 PM EDT PSYCHIATRY CONSULTATION 09/15/2023 Lavinia Durand : 1940 REQUESTING PROVIDER Barrera Kirkland MD REASON FOR CONSULTATION 82yo F w/ metastatic RCC, gastritis, HTN, here with subacute encephalopathy. Work-up otherwise unremarkabe & trial of HD steroids x 3 days for autoimmune encephalitis unremarkable. Neuro concerned for underlying depression contributing HISTORY OF PRESENT ILLNESS Lavinia Durand is a 82 y.o. female with history of upper tract urothelial cell cancer, high grade T1 bladder cancer recurrence, ESRD on HD MFW, hypertension, hypothyroidism, and glaucoma who presented to [facility] as a transfer from [place] for AMS and acute on chronic anemia. AMS has mainly been estella cterized by apathy and has been occurring for a few weeks. 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 Psychiatry was consulted to assess for possibleunderlying depression contributing to presentation. On approach, patient reclined in bed with eyes closed. She opened eyes spontaneously to verbal stimuli. Patient responded to most questions with yes/no answers or nodding/shaking head. She denies SI/HI/AVH. Reports feeling tired. Oriented x 4. She reports that she lives with her daughter and son-in-law and has grandchildren at home. She was able to answer all history questions, though requested TW speak with her further another time. Collateral: Diya Durand MD, son, Spoke over the phone with patient's son, . Diya Durand, who is a psychiatrist. He reports that after patient's got sick around a year ago, the patient stopped driving and handling appointments/finances volitionally. Her memory started to decline slowly but has declined more quickly in the last 2-3 months. Patient was moved into a [facility]p a few months ago and had been unhappy aboutthat. She has also been unhappy about needing dialysis and having to deal with her medical problems. She has had poor appetite for several months and has required family members to spoonfeed her at times. Additionally, patient and family found out about one month ago that her son who had gone missing 35-40 years had unfortunately committed suicide by jumping off a building while he was in medicalschool at that time. He states that patient is not very open about how she is feeling and believes that there is likely an underlying depression contributing to her presentation. Lavinia Durand's review of systems today is positive for problems with apathy. All other systemswere reviewed and are negative. PAST PSYCHIATRIC HISTORY The patient denies any previous psychiatric problems or diagnoses, inpatient or outpatient mental health care, suicide attempts, use of psychotropic medications, or any self injurious behavior. PAST MEDICAL & SURGICAL HISTORY Past Medical History: Diagnosis Date ESRD (end stage renal disease) Glaucoma Hypothyroidism Urothelial cancer Past Surgical History: Procedure Laterality Date KNEE REPLACEMENT NEPHRECTOMY PARTIAL HYSTERECTOMY TURP TURBT VEIN STRIPPING FAMILY PSYCHIATRIC HISTORY Patient had a son who completed suicide while in med school. The patient otherwise denies any family history of mental illness or treatment, psychiatric hospitalizations, suicide attempts, or substance problems. SOCIAL HISTORY Lives with daughter and son-in-law, who have children themselves. Shook head no when asked if she ever used to work. Additional history limited by poor patient engagement. SUBSTANCE USE HISTORY According to the patient chart, she reports that she has never smoked. She has never used smokelesstobacco. She reports no history of alcohol use. She reports no history of drug use. On my assessment, patient denied all substance/alcohol use. ALLERGIES She is allergic to atorvastatin, humira (2 pen) [adalimumab], and pork-derived products. MEDICATIONS Current Scheduled Medications: carveDILOL (COREG) tablet 50 mg, 50 mg, Q12H epoetin miguel-epbx (RETACRIT) injection 10,000 Units, 10,000 Units, Weekly Folic acid (FOLVITE) tablet 1 mg, 1 mg, Daily hydrALAZINE (APRESOLINE) tablet 100 mg, 100 mg, Q8H [Held by provider] Insulin lispro (HUMALOG) injection, , 4x daily w/meals, HS Insulin regular (HUMULIN R;NOVOLIN R) injection, , Q6H Latanoprost (XALATAN) 0.005 % ophthalmic solution 1 drop, 1 drop, QHS Levothyroxine (SYNTHROID) tablet 25 mcg, 25 mcg, Before BKF Lisinopril (PRINIVIL) tablet 20 mg, 20 mg, Q12H Melatonin tablet 3 mg, 3 mg, QHS Mirtazapine (REMERON) tablet 7.5 mg, 7.5 mg, QHS NIFEdipine (PROCARDIA XL) tablet XL 60 mg, 60 mg, Daily And NIFEdipine (PROCARDIA XL) tablet XL 60 mg, 60 mg, QHS Pantoprazole (PROTONIX) injection 40 mg, 40 mg, BID vitamin C/B complex/folic acid (VIRT-CAPS) capsule 1 mg, 1 capsule, Daily Current PRN Medications: Acetaminophen, 650 mg, Q4H PRN alum/mag hydrox.-simethicone, 30 mL, Q6H PRN [Held by provider] Insulin lispro, , PRN And Dextrose, 7.5-25 g, As directed PRN And glucose, 1-2 Tube, As directed PRN Dextrose, 7.5-25 g, As directed PRN And glucose, 1-2 Tube, As directed PRN HYDROmorphone, 0.2 mg, Q3H PRN Melatonin, 6 mg, QHS PRN Ondansetron 4mg/2ml, 4 mg, Q6H PRN Or Ondansetron, 4 mg, Q6H PRN oxyCODONE, 5 mg, Q4H PRN Polyethylene glycol, 17 g, Daily PRN Sodium chloride 0.9%, 250 mL, PRN RESULTS/DATA REVIEW Labs and imaging have been reviewed. Recent Results (from the past 24 hour(s)) GLUCOSE POC Collection Time: 09/14/23 3:39 PM Result Value Ref Range Glucose (POC Device) 238 (H) 70 - 99 mg/dL POC Sample Type CAPBL GLUCOSE POC Collection Time: 09/14/23 6:57 PM Result Value Ref Range Glucose (POC Device) 200 (H) 70 - 99 mg/dL POC Sample Type CAPBL GLUCOSE POC Collection Time: 09/14/23 8:41 PM Result Value Ref Range Glucose (POC Device) 233 (H) 70 - 99 mg/dL POC Sample Type CAPBL CBC,PLATELETS Collection Time: 09/15/23 1:21 AM Result Value Ref Range WBC Count 14.99 (H) 3.99 - 11.19 K/uL RBC Count 2.85 (L) 3.91 - 5.04 M/uL Hemoglobin 8.6 (L) 11.4 - 15.2 g/dL Hematocrit 27.2 (L) 34.9 - 44.3 % Mean Cell Volume 95.4 79.6 - 97.7 fL Mean Cell Hgb 30.2 25.9 - 33.9 pg Mean Cell Hgb Conc 31.6 31.4 - 35.9 g/dL RBC Distribution 15.9 (H) 10.8 - 14.9 % Platelet Count 114 (L) 150 - 393 K/uL Mean Platelet Volume 11.2 8.5 - 12.2 fL CHEM 7 (LYTES,BUN,CREA,GLUC) Collection Time: 09/15/23 1:21 AM Result Value Ref Range Sodium 130 (L) 135 - 145 mmol/L Potassium 5.4 (H) 3.5 - 5.0 mmol/L Chloride 94 (L) 98 - 108 mmol/L CO2 21 21 - 31 mmol/L Glucose 225 (H) 70 - 99 mg/dL BUN 58 (H) 7 - 25 mg/dL Creatinine 4.44 (H) 0.50 - 1.20 mg/dL Bun/Crea Ratio 13 Osmolality (Calculated) 301 278 - 305 mOsm/kg Anion Gap 20 (H) 7 - 17 mmol/L eGFR, CKD-EPI, Female 9 (L) >=60 mL/min/1.73m2 MAGNESIUM Collection Time: 09/15/23 1:21 AM Result Value Ref Range Magnesium 1.9 1.6 - 2.6 mg/dL PHOSPHATE, INORGANIC Collection Time: 09/15/23 1:21 AM Result Value Ref Range Phosphorous 6.2 (H) 2.2 - 4.6 mg/dL PT,INR,PTT Collection Time: 09/15/23 1:21 AM Result Value Ref Range PT 16.3 (H) 11.9 - 14.2 sec INR 1.3 (H) 0.9 - 1.1 PTT 25.4 24.0 - 34.3 sec CALCIUM Collection Time: 09/15/23 1:21 AM Result Value Ref Range Calcium 8.6 8.6 - 10.5 mg/dL EKG: no recent EKGs to review Imaging/Studies: MRI BRAIN WITH AND WITHOUT CONTRAST, 09/12/2023 05:57 AM Preliminary report: IMPRESSION: No evidence of an acute infarct. Changes of chronic microvascular disease. No intraparenchymal enhancing lesions identified. MRI BRAIN WITH AND WITHOUT CONTRAST Aug 08 2023 9:54AM IMPRESSION: 1. NO ACUTE INTRACRANIAL PROCESS 2. NO SUSPICIOUS ENHANCEMENT TO SUGGEST METASTASIS 3. MILD NONSPECIFIC WHITE MATTER CHANGE AND MILD-MODERATE VOLUME LOSS MENTAL STATUS EXAMINATION Appearance: disheveled Attention: normal Orientation: person, place, time, and situation Interview Behavior: passive Attire: gown Grooming: satisfactory Eye Contact: poor Mood: not stated Affect: flat, dysphoric Motor Activity: No tremors, muscle weakness, muscle rigidity/stiffness/abnormal tone, clonus, abnormal involuntary muscle movements or seizure activity were noted. Speech: soft, mostly short responses Thought Process/Associations: difficult to assess given short responses Suicidal Ideation: denied by patient Homicidal Ideation:denied by patient Delusions: none Hallucination: none Memory: grossly intact, per collateral has been worsening over past year Insight/Judgment: poor insight and poor judgement Impulse Control: intact Fund of Knowledge: average Language/Vocabulary: fluent Wallisian Cognition: grossly intact Vital Signs: Blood pressure 192/84, pulse 74, temperature 97.9 F (36.6 C), temperature source Infrared, resp. rate 18, weight 45.7 kg (100 lb 12.8 oz), SpO2 97%. IMPRESSION Lavinia Durand is a 82 y.o. female with history of upper tract urothelial cell cancer, high grade T1 bladder cancer recurrence, ESRD on HD MFW, hypertension, hypothyroidism, and glaucoma who presented to [facility] as a transfer from [place] for AMS and acute on chronic anemia. AMS has mainly been estella cterized by apathy and has been occurring for a few weeks. 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 Psychiatry was consulted to assess for possibleunderlying depression contributing to presentation. Per collateral, patient has had many recent stressors including finding out a few months ago about son's via suicide, recently being moved to [facility], and ongoing medical illness. Presentation is concerning for depression given the aforementioned stressors and symptoms including low appetite and apathy. Diagnoses: Subacute encephalopathy Depression, unspecified R/o MDD Chronic gastritis Submucosal duodenal mass Melanosis duodenitis ESRD on HD MWF Steroid-induced hyperglycemia Hypertension Urothelial cancer Acute on chronic anemia Hypothyroidism Glaucoma Hyponatremia Thrombocytopenia RECOMMENDATIONS Diagnostic Workup: - will follow up on serum and CSF autoimmune encephalitis panels Medications: - agree with starting Remeron 7.5 mg at bedtime. Agree with low dosing in setting of renal impairment. Non-pharmacological: 1) Patient is exhibiting signs of delirium including periods of decreased awareness of the environment and impaired attention. The best treatment for delirium is to treat the underlying medical problems. 2) Non-pharmacologic evidence-based treatment of delirium includes repeated reorientation, promotion of good sleep hygiene, room with a window, early mobilization, correction of electrolyte abnormalities, removal of unnecessary attachments (barillas catheter, peripheral IV's, NG tubes or other sourcesof infection), maximizing nutrition, using sensory aids (glasses, hearing aids), familiar faces (family, primary nurse), and minimizing unnecessary noise and stimuli. 3) Regarding pharmacology, avoid anticholinergic drugs and benzodiazepines to the extent possible. Opiates can cause and worsen delirium, but untreated pain can as well. Low dose antipsychotics can help. Please bear in mind that antipsychotics can lower seizure threshold and prolong QTc. 4) Due to the patient's delirium, her ability to make many medical decisions may be compromised. Werecommend identifying a surrogate decision maker who can assist when needed. Please bear in mind that capacity is relative to the specific decision in question, and it can fluctuate with time. Case staffed with attending psychiatrist, Dr. Vazquez, who has personally evaluated the patient. Thank you for allowing us to participate in the care of this patient. The psychiatry consultation team is available for questions Mon-Fri from 8 AM-5 PM via pager # [phone]. The on-call vice president investor relations can be reached outside these hours at the same pager number. Fabricio Sanchez MD PGY-2 Psychiatry ATTENDING ATTESTATION I saw and examined Lavinia Durand on 09/15/[address] Fabricio Sanchez MD. I discussed the findings and therapeutic plan with Dr. Sanchez. I agree with the history, examination, and medical decision making as documented. I have edited the above report as needed to reflect my findings. Lavinia Durand was very passive on exam, but she did respond to questions with brief answers. She denied any symptoms of depression though. No posturing or speech latency. She gave psychiatry teampermission to contact her son, who reported multiple recent psychosocial stressors. There is concern for underreported depression. We agree with trial of Remeron as noted by Dr. Sanchez above. Case discussed with Dr. Kirkland on the unit. I personally reviewed data including but not limited to the following: Imaging - MRI Brain w/ and w/o contrast from 09/12/2023 showed no acute intracranial abnormalities. Age-related volume loss and chronic microvascular disease noted. I independently reviewed the images. Labs - Chemistries with hyponatremia, hyperkalemia, elevated Cr. Mg normal. INR 1.3. CBC with anemia, leukocytosis, thrombocytopenia. TSH normal. Anti-TPO antibodies not detected. Outside records - [facility] notes reviewed: Admitted from 08/03 to 08/15/2023 for altered mental status. Mental status noted to improve with IV steroids. Collateral information - Obtained from patient's son, Dr. Durand, by Dr. Sanchez. Fabricio Vazquez MD Marketing Compliance Manager Consultation-Liaison Psychiatry * Fabricio Sanchez MD - 09/15/2023 2:00 PM EDTAssociated Order(s): IP CONSULT TO PSYCHIATRY Psychiatry Brief Note Attempted to see patient at 1400. Patient currently off unit for EGD + EUS. Spoke with patient's RNin person and discussed patient over the phone with primary attending physician, Dr. Kirklnad. No urgent needs at this time. Will plan to evaluate patient at later time. The psychiatry consultation team is available for questions Mon-Fri from 8 AM-5 PM via pager # [phone]. The on-call vice president investor relations can be reached outside these hours at the same pager number. Fabricio Sanchez MD PGY-2 Psychiatry * Whit Ferraro RN - 09/12/2023 6:07 PM EDT Report of PIV WITH ULTRASOUND GUIDANCE Consultation and Evaluation: Patient seen and evaluated for PIV insertion using ultrasound guidance. ID band present, allergies and limb precautions verified with patient/nurse. Skin integrity within normal limits at time of insertion. No evidence of ecchymosis, infiltration, hematoma, edema, or any condition that would prevent safe insertion of a PIV [X ] ultrasound used [ ] ultrasound not used Procedure explained to patient. Anatomical distortion to interfere with placement: left av fistula PROCEDURE DETAILS: PIV Insertion Procedure Using standard aseptic technique access was obtained. Good blood return noted, catheter flushed easily with 10mls 0.9 NS per lumen. Securement device used to secure PIV. Dressing applied. Pt denies pain at insertion site. Peripheral IV Line - Single Lumen 09/12/231806 median cubital vein (antecubital fossa), right 20 gauge;1 3/4 in length (Active) 09/12/231806 Present On Admission : no Guiding Device: ultrasound Lumen 1: Additional Lumens: Lumen 2: Location: median cubital vein (antecubital fossa), right Device/Lot Number: [id number] catheter system Gauge/Length: 20 gauge;1 3/4 in length Unsuccessful Insertion Attempts: Unsuccessful Attempt Location/Site: Pain Prevention/Patient Tolerance: tolerated well Removal: Additional Comments: Lumen 3: Peripheral IV Present on Admission: (Retired/Read Only) Location: (Retired/Read Only) Device: (Retired/Read Only) Gauge/Length: Display Carver/Lot Number: Unsuccessful Insertion Attempts: (Retired/Read Only) Unsuccessful Attempt Locations: Pain Prevention: Patient Tolerance: Insertion: Removal Indication: Peripheral IV Location - Orientation: Peripheral IV Location: Patient tolerated procedure well without any complications [] Lidocaine 1% used prior insertion [X] No Lidocaine used; offered but opted out Extra insertion note if applicable: RN notified of procedure completion [ ] Obtained labs. [X] Call light in reach. [X] Bed low and locked. [X] Tray table within reach. Education: Patient/Family informed to notify nurse of any complications including pain, redness, swelling, or leakage post insertion. * Anastacio Rausch MD - 09/11/2023 1:50 PM EDTAssociated Order(s): IP CONSULT TO NEPHROLOGY NEPHROLOGY INPATIENT CONSULTATION NOTE I saw Lavinia Durand at the [facility] on 09/11/2023. Reason for Consultation: ESRD management Referring Provider: Barrera Kirkland MD Impression and Recommendations: 82 F with ESRD on HD admitted with subacute encephalopathy. Nephrology is consulted for dialysis management. ESRD -continue HD on MWF schedule while admitted. Orders placed for tomorrow. -check weight daily and after each dialysis treatment -check chem 6 daily while admitted -keep strict Is and Os -give nephrocaps/nephronex daily -low Na, low K, low phos, high protein diet. 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 Nephrology ? ESRD [facility] team) Robbin Rausch MD Marketing Compliance Manager, Division of Nephrology Pager [phone] History of Present Illness I saw Lavinia Durand at the [facility] on 09/11/2023. Patient has a past medical history as outlined below including ESRD on HD MWF. She is admitted withencephalopathy and undergoing work-up with neurology assistance. She gets dialysis MWF without any recent issues. She has LUE AVF. She does make some urine. She required a nicardipine drip at OSH. BPnow running 160-170s on amlodipine 10, coreg 25 bid, hydral 100 tid, and lisinopril 20. Past Medical History: Diagnosis Date ESRD (end stage renal disease) Glaucoma Hypothyroidism Urothelial cancer Past Surgical History: Procedure Laterality Date KNEE REPLACEMENT NEPHRECTOMY PARTIAL HYSTERECTOMY TURP TURBT VEIN STRIPPING Family History Problem Relation Age of Onset Heart Disease - Other Mother Hypertension Mother Osteoporosis Mother Stroke Father Hypertension Father Social History Socioeconomic History Marital status: Spouse name: Not on file Number of children: Not on file Years of education: Not on file Highest education level: Not on file Occupational History Not on file Tobacco Use Smoking status: Never Smokeless tobacco: Never Substance and Sexual Activity Alcohol use: Never Drug use: Never Sexual activity: Not on file Other Topics Concern Not on file Social History Narrative Not on file Social Determinants of Health Financial Resource Strain: Not on file Food Insecurity: Not on file Transportation Needs: Not on file Physical Activity: Not on file Stress: Not on file Social Connections: Not on file Intimate Partner Violence: Not on file Housing Stability: Not on file Inpatient meds: carveDILOL 25 mg Oral BID Folic acid 1 mg Oral Daily hydrALAZINE 100 mg Oral Q8H Insulin lispro Subcutaneous 4x daily w/meals, HS Latanoprost 1 drop Both Eyes QHS Levothyroxine 25 mcg Oral Before BKF Lisinopril 20 mg Oral BID Melatonin 3 mg Oral QHS NIFEdipine 30 mg Oral QHS Pantoprazole 40 mg Oral Daily vitamin C/B complex/folic acid (VIRT-CAPS) 1 capsule Oral Daily Home med list: Current Outpatient Medications Medication Instructions Acetaminophen (TYLENOL) 650 mg, Oral, EVERY 4 HOURS NEEDED Acetaminophen (TYLENOL) 650 mg, Rectal, EVERY 4 HOURS NEEDED ALUMINUM & MAGNESIUM HYDROXIDE PO 30 mL, Oral, EVERY 4 HOURS NEEDED bisacodyl (DULCOLAX) 10 mg, Rectal, EVERY 24 HOURS NEEDED carveDILOL (COREG) 12.5 mg, Oral, 2 TIMES DAILY Docusate (COLACE) 100 mg, Oral, 2 TIMES DAILY NEEDED glucose (INSTA-GLUCOSE) 31 g, Oral, NEEDED guaiFENesin (ROBITUSSIN) 200 mg, Oral, EVERY 4 HOURS NEEDED hydrALAZINE (APRESOLINE) 10 mg, Oral, EVERY 6 HOURS NEEDED hydrALAZINE (APRESOLINE) 100 mg, Oral, EVERY 8 HOURS Latanoprost 0.005 % Solution ophthalmic solution 1 drop, Both Eyes, AT BEDTIME Levothyroxine (SYNTHROID) 25 mcg, Oral, DAILY BEFORE BREAKFAST lidocaine 5 % Patch patch 1 patch, Transdermal, EVERY 24 HOURS, Max of 12 hours of application thenremove. Lisinopril (PRINIVIL) 20 mg, Oral, 2 TIMES DAILY magnesium hydroxide (Milk of Magnesia) 400 MG/5ML Suspension 30 mL, Oral, EVERY 24 HOURS NEEDED Melatonin 3 mg, Oral, DAILY AT BEDTIME Pantoprazole (PROTONIX) 40 mg, Oral, DAILY Polyethylene glycol (MIRALAX) 17 g, Oral, DAILY NEEDED predniSONE (DELTASONE) 10 mg, Oral, DAILY sodium phosphate w/sodium biphosphate 7-19 GM/118ML Enema 1 enema, Rectal, DAILY NEEDED Allergies: Allergies Allergen Reactions Atorvastatin Fatigue Humira (2 Pen) [Adalimumab] Rash Pork-Derived Products Physical Examination: Vital Signs BP 173/78 (BP Location: Right arm, BP Position: Lying) Pulse 70 Temp 97.4 F (36.3 C) (Oral) Resp 18 Wt 46.4 kg (102 lb 3 oz) SpO2 96% Smoking Status Never No intake/output data recorded. Constitutional: Well developed, well nourished, alert and comfortable appearing. Head: Normocephalic and atraumatic. Sclera non-icteric, no sandra-orbital edema, moist mucous membranes. Respiratory: Respiratory effort is normal. Breath sounds are clear. Cardiovascular: Normal rate, regular rhythm. JVD not appreciated. Extremities: Warm and well perfused. Minimal peripheral edema. Neurological: Alert and oriented to conversation. No resting facial droop. Moving extremities spontaneously. Skin: No rash or lesions on face or extremities, no cyanosis. MSK: No joint swelling or deformity. Dialysis Access: LUE AVF + thrill Relevant Data Reviewed: Lab Results Component Value Date CREATSERUM 3.24 (H) 09/11/2023 BUN 42 (H) 09/11/2023 SODIUM 132 (L) 09/11/2023 POTASSIUM 4.6 09/11/2023 CHLORIDE 99 09/11/2023 CO2 25 09/11/2023 CALCIUM 8.9 09/11/2023 ALBUMIN 2.7 (L) 09/11/2023 Lab Results Component Value Date WBC 12.12 (H) 09/11/2023 HGB 8.5 (L) 09/11/2023 PLATELET 125 (L) 09/11/2023 Lab Results Component Value Date CALCIUM 8.9 09/11/2023 MAGNESIUM 1.6 09/11/2023 Lab Results Component Value Date HGB 8.5 (L) 09/11/2023 MCV 90.8 09/11/2023 * Kevin Gibson MD - 09/11/2023 8:34 AM EDTAssociated Order(s): IP CONSULT TO GASTROENTEROLOGY Images from the original note were not included. [facility] PB Consult WebExchange --> IM Consult Serv [facility] --> [facility] PB consult service Fellow GASTROENTEROLOGY INPATIENT CONSULT Referring Provider: Barrera Kirkland MD Admit Date: 09/10/2023 Reason for Consultation: abdominal pain, concern for GI bleed at [place]. EGD showed submucosal duodenal mass, chronic gastritis, and melanosis duodenitis. Suggested EUS with FNA of mass at OSH. do we need to proceed with this here? HISTORY OF PRESENT ILLNESS: Lavinia Durand is a 82 y.o. female who has a past history notable for history of Upper tract urothelial cancer (UTUC) s/p right nephroureterectomy 10/2020, High grade T1 bladder cancer recurrence 03/12/2021 s/p induction with BCG, Ta (stage 0) high grade bladder recurrence 11/26/2021, ESRD on HDMWF, hypertension, hypothyroidism, glaucoma who presents as a transfer from [place] for altered mental status and acute on chronic anemia. We are consulted for duodenal mass found on EGD at OSH, question of whether this need further evaluation while admitted. Patient recently has had multiple hospitalizations for encephalopathy. Most recently at [facility] last month without clear etiology w/ negative LP and MRI brain ultimately found to have positive calcium channel antibody on serum and given IV steroids with improvement in mental status. Family declined further evaluation and was transferred to SNF. Recently admitted to [place] for recurrent confusion/lethargy/refusal of care w/ abdominal pain, nausea, and emesis. GI at OSH was consulted to do worsening anemia in setting of abdominal pain. EGD at OSH w/ chronic gastritis, duodenal submucosal mass, and melanosis duodenitis. Per HPI OSH recommended further evaluation with EUS and FNA of duodenal lesion. Path with duodenal biopsy and duodenum bulb biopsy w/ katina gland hyperplasia. Not biopsied as OSH due to hypertension. Report below. Vitals signs stable during hospitalization although hypertensive to systolics >180s. Patient is non-interactive on exam, oriented to person and place, only answers yes no, no extrapolation. Labs notable for sodium of 132, Cr 3.24, BUN 42, Alb 2.7, ALP 38, ALT 7, AST 11, Tbili 0.3, Hgb 8.5, WBC 12, Plt 125, otherwise noncontributory labs. Imaging notable for negative MRI brain, MRI AP w/ contrast done 04/17/23 w/ bladder mass, subcentimeter R hepatic lobe hemangioma, cholelithiasis, multiple pancreatic cysts largest measuring 1.5 cm, patent abdominal vasculature with no other concerning findings. PAST MEDICAL HISTORY: PAST MEDICAL HISTORY Past Medical History: Diagnosis Date ESRD (end stage renal disease) Glaucoma Hypothyroidism Urothelial cancer PAST SURGICAL HISTORY Past Surgical History: Procedure Laterality Date KNEE REPLACEMENT NEPHRECTOMY PARTIAL HYSTERECTOMY TURP TURBT VEIN STRIPPING CURRENT MEDICATIONS amLODIPine 10 mg Oral Daily carveDILOL 25 mg Oral BID Folic acid 1 mg Oral Daily hydrALAZINE 100 mg Oral Q8H Insulin lispro Subcutaneous 4x daily w/meals, HS Latanoprost 1 drop Both Eyes QHS Levothyroxine 25 mcg Oral Before BKF Lisinopril 20 mg Oral BID magnesium sulfate 1 g Intravenous Once Melatonin 3 mg Oral QHS Pantoprazole 40 mg Oral Daily vitamin C/B complex/folic acid (VIRT-CAPS) 1 capsule Oral Daily ALLERGIES Allergies Allergen Reactions Atorvastatin Fatigue Humira (2 Pen) [Adalimumab] Rash Pork-Derived Products SOCIAL HISTORY She reports that she has never smoked. She has never used smokeless tobacco. She reports that she does not drink alcohol and does not use drugs. FAMILY HISTORY Family History Problem Relation Age of Onset Heart Disease - Other Mother Hypertension Mother Osteoporosis Mother Stroke Father Hypertension Father REVIEW OF SYSTEMS: Review of Systems All other systems reviewed and are negative. Unable to be reviewed secondary to AMS PHYSICAL EXAM: Temp: [97.7 F (36.5 C)-98.6 F (37 C)] 98.6 F (37 C) Pulse (Heart Rate): [67-77] 71 Resp Rate: [16] 16 BP: (149-193)/(66-75) 190/73 O2 Sat (%): [95 %-99 %] 98 % Wt Readings from Last 3 Encounters: No data found for Wt General: No acute distress. Comfortable. HEENT: PER, MMM, OP clear. No scleral icterus. Neck: Neck supple without lymphandenopathy. Respiratory: CTA bilaterally, no wheezes/crackles Cardiovascular: RRR, no m/r/g Abdominal: Soft. + BS. ND. NT. No guarding or rebound. No ascites present Neurological: Alert and oriented to person, place. Not interactive, Flat Affect. No gross motor deficit. Extremities: WWP 2+ throughout, no edema Skin: Does not appear jaundiced. No rash or lesion. LABS: CBC: Lab Results Component Value Date WBC 12.12 (H) 09/11/2023 HGB 8.5 (L) 09/11/2023 PLATELET 125 (L) 09/11/2023 MCV 90.8 09/11/2023 Chemistry: Lab Results Component Value Date SODIUM 132 (L) 09/11/2023 POTASSIUM 4.6 09/11/2023 CHLORIDE 99 09/11/2023 CO2 25 09/11/2023 BUN 42 (H) 09/11/2023 CREATSERUM 3.24 (H) 09/11/2023 GLUCOSE 94 09/11/2023 MAGNESIUM 1.6 09/11/2023 Liver Function Tests: No results found for: ALT, AST, ALKPHOS, BILITOTAL, BILIDIRECT, INR IMAGING/STUDIES: All relevant imaging and procedures were reviewed. ASSESSMENT AND PLAN: Lavinia Durand is a 82 y.o. 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 We are consulted for submucosal duodenal mass found on EGD at OSH ,we will proceed with EUS and potential biopsy for further characterization. IMPRESSION 1. Submucosal Duodenal Mass 2. Pancreatic Cysts ASSESSMENT/RECOMMENDATIONS: - Plan for EGD w/ EUS of duodenal mass for possible biopsy - Patient will need follow up imaging of pancreatic cysts outpatient. Please place ambulatory GI referral an we will arrange follow-up - For EGD: NPO @ MN day prior to EGD, morning coags and CBC for INR <1.5, Hgb >7, and Plt >50 This consult was discussed with Dr. Koko Rossi, the attending physician. If you have any questionsor need any further information, please feel free to contact our consult team. Thank you for this interesting consult and allowing us to participate in the care of Lavinia Durand Kevin Gibson MD Internal Medicine, PGY-1 Pager #[phone] For urgent/stat calls 5pm to 7am or all day on the weekend, please page the on- call GI fellow on Drive. IM Consult Serv [facility] --> [facility] STAT/NEW GI consults For follow up questions regarding this patient, contact the PB consults fellow or CAROL ANN on Drive. IM Consult Serv [facility] --> [facility] PB consult service Fellow or CAROL [facility] Associated attestation - Fabrizio Rossi MD - 09/11/2023 2:58 PM EDT Images from the original note were not included. I have seen, examined and evaluated the patient along with Dr. Gibson on 09/11/23 and I agree with his findings, assessment and plan. Ms. 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 She was admitted for MS changes and has had multiple recent hospitalizations for encephalopathy. She was admitted to [place] for recurrent confusion, lethargy and abdominal pain, nausea and vomiting. She had a EGD at OSH that showed chronic gastritis, melanosis duodenitis and a largesubmucosal mass in the second portion of the duodenum. MRI AP w/ contrast done 04/17/23 w/ bladder mass, subcentimeter R hepatic lobe hemangioma, cholelithiasis, multiple pancreatic cysts largest measuring 1.5 cm, patent abdominal vasculature with no other concerning findings. Submucosal duodenal mass Pancreatic cysts We will plan for EGD with EUS to further characterize her duodenal submucosal mass and perform FNA if necessary. We will need to have the patient follow up as an outpatient for surveillance of her pancreatic cyst JAbraham Rossi MD, MS Advanced [facility] Endoscopy Fellowship Keyboard Operator spray dry operator-Clinical Gastroenterology/Hepatology and Nutrition [facility] * Vianney Schafer MD - 09/11/2023 7:16 AM EDTAssociated Order(s): IP CONSULT TO NEUROLOGY NEUROLOGY INPATIENT CONSULTATION NOTE Reason for consultation: recurrent altered mental status, reportedly improved with steroids, transferred here for concerns for paraneoplastic syndrome in the setting of urothelial cancer History of present illness: Lavinia Durand is a 82 y.o. female with a history of Upper tract urothelial cancer (UTUC) s/p right nephroureterectomy 10/2020, High grade T1 bladder cancer recurrence 03/12/2021 s/p induction with BCG, Ta (stage 0) high grade bladder recurrence 11/26/2021, ESRD on HDMWF, hypertension, hypothyroidism, glaucoma who presents as a transfer from [place] for altered mental status and acute on chronic anemia. History was mainly obtained from patient's grandchildren. They report that patient was in her usualstate of health until about 2 months ago. She was admitted to the ICU twice in the past 2 months. She was recently discharged to SNF. They report that during this period patient has been having episodes of confusion where she can get agitated and disoriented that can last for a few hours. They report that they have mainly observed these episodes with her hemodialysis. The last time she was in oneof these episodes was about a week ago. They do not report any seizure like activity during these episodes. They report that she has been also having some difficulty with her short term memory in thepast 2 months. She was admitted to [facility] in last month with confusion. Oncology and Neurology were consulted. She underwent LP which was unrevealing. Serum paraneoplastic panel was positive calcium channelbinding antibody. MRI brain had nothing acute. Oncology started IV steroids and her mental status improved. Further workup was recommended but family elevated to forego this. She was discharged to SNF on prednisone (20 mg for 5 days, then 10 mg daily). She then presented to [place] after being more lethargic, refusing care, and complaining of abdominal pain and nausea and vomiting. She was markedly hypertensive on admission. CT head had nothing acute. Stated on cardene gtt. GI was consulted for worsening anemia in the setting of abdominal pain. EGD done 09/07 showed chronic gastritis, duodenal submucosal mass, and melanosis duodentitis. Biopsieswere taken. Patient reportedly received 100 mg of Solumedrol with improvement in engagement. She was admitted to [facility] on 08/04/23 with confusion. Initial lab work was significant forNa 134, Cr 5.01, and plts 98. She was admitted for further work up. Nephrology, oncology and neurology were consulted. She underwent LP, which was unrevealing for cause of confusion. Oncology startedIV steroids, and her mental status began to improve. MRI brain was obtained and did not show any acute process or sign of metastasis. Oncology recommended further CT imaging to assess status of the cancer, but family elected to forego further work up. PT/OT recommended SNF. Her hospitalization was slightly prolonged due to uncontrolled BP. This improved with changes to her medications, and she was discharged in stable condition. Medical History PAST MEDICAL HISTORY Past Medical History: Diagnosis Date ESRD (end stage renal disease) Glaucoma Hypothyroidism Urothelial cancer PAST SURGICAL HISTORY Past Surgical History: Procedure Laterality Date KNEE REPLACEMENT NEPHRECTOMY PARTIAL HYSTERECTOMY TURP TURBT VEIN STRIPPING FAMILY HISTORY Family History Problem Relation Age of Onset Heart Disease - Other Mother Hypertension Mother Osteoporosis Mother Stroke Father Hypertension Father SOCIAL HISTORY Social History Socioeconomic History Marital status: Spouse name: Not on file Number of children: Not on file Years of education: Not on file Highest education level: Not on file Occupational History Not on file Tobacco Use Smoking status: Never Smokeless tobacco: Never Substance and Sexual Activity Alcohol use: Never Drug use: Never Sexual activity: Not on file Other Topics Concern Not on file Social History Narrative Not on file Social Determinants of Health Financial Resource Strain: Not on file Food Insecurity: Not on file Transportation Needs: Not on file Physical Activity: Not on file Stress: Not on file Social Connections: Not on file Intimate Partner Violence: Not on file Housing Stability: Not on file ALLERGIES Allergies Allergen Reactions Atorvastatin Fatigue Humira (2 Pen) [Adalimumab] Rash Pork-Derived Products PRIOR TO ARRIVAL MEDICATIONS Medications Prior to Admission Medication Sig Dispense Refill Last Dose Acetaminophen 325 MG tablet Take 2 tablets by mouth every 6 hours as needed for Mild Pain. amLODIPine 10 MG tablet Take 1 tablet by mouth daily. carveDILOL 12.5 MG tablet Take 1 tablet by mouth 2 times daily. Docusate 100 MG capsule Take 1 capsule by mouth 2 times daily as needed for Constipation. Doxazosin 4 MG tablet Take 1 tablet by mouth 2 times daily. faMOTIdine 20 MG tablet Take 1 tablet by mouth daily. Folic acid 1 MG tablet Take 1 tablet by mouth daily. hydrALAZINE 10 MG tablet Take 1 tablet by mouth every 6 hours as needed (SBP >180). hydrALAZINE 100 MG tablet Take 1 tablet by mouth every 8 hours. Latanoprost 0.005 % Solution ophthalmic solution Place 1 drop in both eyes At bedtime. Levothyroxine 25 MCG tablet Take 1 tablet by mouth every morning before breakfast. Lisinopril 20 MG tablet Take 1 tablet by mouth 2 times daily. Melatonin 3 MG tablet Take 1 tablet by mouth at bedtime. Pantoprazole [address] tablet DR Take 1 tablet by mouth daily. Polyethylene glycol 17 g Pack packet Take 1 packet by mouth daily as needed for Constipation. predniSONE 10 MG tablet Take 1 tablet by mouth daily. Current Medications Current Facility-Administered Medications Medication Dose Route Frequency Provider Last Rate Last Admin Acetaminophen (TYLENOL) tablet 650 mg 650 mg Oral Q4H PRN Dwight Tobin MD 650 mg at 09/10/23 2218 alum/mag hydrox.-simethicone oral suspension 30 mL 30 mL Oral Q6H PRN Dwight Tobin MD amLODIPine (NORVASC) tablet 10 mg 10 mg Oral Daily Dwight Tobin MD carveDILOL (COREG) tablet 25 mg 25 mg Oral BID Dwight Tobin MD 25 mg at 09/10/23 2205 Insulin lispro (HUMALOG) injection Subcutaneous 4x daily w/meals, HS Dwight Tobin MD And Insulin lispro (HUMALOG) injection Subcutaneous PRN Dwight Tobin MD And Dextrose 50% injection 7.5-25 g 7.5-25 g Intravenous As directed PRN Dwight Tobin MD And glucose (GLUTOSE) 40 % oral gel 1-2 Tube 1-2 Tube Oral As directed PRN Dwight Tobin MD Folic acid (FOLVITE) tablet 1 mg 1 mg Oral Daily Dwight Tobin MD hydrALAZINE (APRESOLINE) tablet 100 mg 100 mg Oral Q8H Dwight Tobin MD 100 mg at 09/11/23 0632 Latanoprost (XALATAN) 0.005 % ophthalmic solution 1 drop 1 drop Both Eyes QHS Dwight Tobin MD 1drop at 09/10/232207 Levothyroxine (SYNTHROID) tablet 25 mcg 25 mcg Oral Before BKF Dwight Tobin MD 25 mcg at 09/11/23 0632 Lisinopril (PRINIVIL) tablet 20 mg 20 mg Oral BID Dwight Tobin MD 20 mg at 09/10/23 220 Melatonin tablet 3 mg 3 mg Oral QHS Dwight Tobin MD 3 mg at 09/10/232204 Melatonin tablet 6 mg 6 mg Oral QHS PRN Dwight Tobin MD Ondansetron 4mg/2ml (ZOFRAN) injection 4 mg 4 mg Intravenous Q6H PRN Dwight Tobin MD Or Ondansetron (ZOFRAN) tablet 4 mg 4 mg Oral Q6H PRN Dwight Tobin MD Pantoprazole (PROTONIX) tablet DR 40 mg 40 mg Oral Daily Dwight Tobin MD Polyethylene glycol (MIRALAX) packet 17 g 17 g Oral Daily PRN Dwight Tobin MD Sodium chloride 0.9% IV solution 250 mL 250 mL Intravenous PRN Dwight Tobin MD vitamin C/B complex/folic acid (VIRT-CAPS) capsule 1 mg 1 capsule Oral Daily Dwight Tobin MD Physical Examination Temp: [97.7 F (36.5 C)-98 F (36.7 C)] 98 F (36.7 C) Pulse (Heart Rate): [67-77] 67 Resp Rate: [16] 16 BP: (149-193)/(66-75) 193/66 O2 Sat (%): [95 %-99 %] 99 % There is no height or weight on file to calculate BMI. GENERAL: Laying comfortably in bed; in no acute distress. NEUROLOGICAL EXAMINATION MENTAL STATUS: awake and alert; oriented to person, place, year, and month; good attention. Flat affect at times. Can spell the world forward but not backwards, cannot perform serial 7s, immediate recall is 1/5 and delayed recall is 0/5. Requires encouragement to follow commands. LANGUAGE/SPEECH: fluent; comprehension intact; object naming intact; repetition intact. CRANIAL NERVES CN II: PERRL. Normal conjunctivae and lids. java systems analyst III, IV and : extraocular movements intact. No nystagmus. CN V: Facial sensation is intact to light touch. CN VII: Facial strength normal with symmetric movement. CN VIII: Hearing is grossly intact. CN IX and X: Soft palate elevates symmetrically in the midline CN XI: Shoulder shrug(R/L) 5/5 CN XII: Tongue is midline with normal movement; no fasciculations. Motor: Normal bulk and tone. Unable to do full isolated muscle strength exam due to patient cooperation and unwillingness, however, she was able to move upper extremities at least antigravity and some resistance, HF was at least 2/5 but didn't observe any antigravity movements, PF and DF was 4+/5. Reflexes: Right Left Comments Biceps 2 2 Triceps Brachioradialis 2 2 Patellar 2 2 Achilles 1 1 Jaw jerk Ayon Babinski Down Down No ankle clonus. Sensation: Comments Light touch Intact throughout Pin prick Temperature Vibration Proprioception Coordination: Huazos-so-eikm intact bilaterally. Gait: Deferred. Diagnostic Data Laboratory data: Lab Results Component Value Date WBC 12.12 (H) 09/11/2023 HGB 8.5 (L) 09/11/2023 HCT 25.8 (L) 09/11/2023 PLATELET 125 (L) 09/11/2023 MCV 90.8 09/11/2023 Lab Results Component Value Date SODIUM 132 (L) 09/11/2023 POTASSIUM 4.6 09/11/2023 CHLORIDE 99 09/11/2023 CO2 25 09/11/2023 BUN 42 (H) 09/11/2023 CREATSERUM 3.24 (H) 09/11/2023 GLUCOSE 103 (H) 09/11/2023 No results found for: CHOLESTEROL, TRIG, HDL, LDLCALC No results found for: HGBA1C No results found for: AMMONIA, TSH, AST, ALT, FOLATE, COPPER, ZINC OSH lab work: Serum AIE panel 08/11/23 with GAD65 0.08 Serum CA Chain Bind Ab, P/Q was elevated at 0.10 PRAKASH, ANCA, RPR, HIV, CEA, AFP, Ammonia, VitB12 was normal 08/08 Imaging: MRI brain w/wo 08/08/23 1. NO ACUTE INTRACRANIAL PROCESS 2. NO SUSPICIOUS ENHANCEMENT TO SUGGEST METASTASIS 3. MILD NONSPECIFIC WHITE MATTER CHANGE AND MILD-MODERATE VOLUME LOSS Diagnostic procedures: LP at OSH: CSF protein 37 glc 60 RBC 156 WBC <3 Impression Lavinia Durand is a 82 y.o. 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 Patient's change in mental status can be caused by many different etiologies. It can be caused by paraneoplastic encephalitis, autoimmune encephalitis, mixed delirium, intracranial mets (none on the OSH MRI), subclinical seizures, less likely DRAPERY SUPERVISOR infection. She didn't have any focal neurological deficits on exam. Recommendations: - MRI brain with and without contrast (ordered) - LP with CSF studies including opening pressure, CSF cell count, protein, glucose, MEID, OCBs, CSFAIE panel - Serum AIE panel, TFTs, anti-TPO, anti-microsomal, anti-MPO abs - Delirium precautions - Consider psych consult due to concern for delirium Thank you for the consultation. If you have any further questions, please contact Neurology Team B. Patient and plan discussed with general neurology attending, Dr. Sandoval. Vianney Schafer MD PGY-5 Neurology Associated attestation - Melly Sandoval DO - 09/11/2023 12:39 PM EDT I saw and independently examined the patient today on 09/11/23. I have personally reviewed all labsand imaging. I agree with the history, examination, and medical decision making as outlined by the resident with the following additions: 82 yo female with history of UTUC s/p resection, bladder CA s/p recent chemo, ESRD on HD who presents with episodic altered mental status that improves with steroids. Initially presented to OSH in early July with with AMS, apathy. ESCALANTE with MRI/LP/EEG unrevealing. She was given 40 mg IVMP with concern for paraneoplastic syndrome with possible improvement. Represented to [place] with similar complaints. Given 100 mg IVMP with reported improvement in mental status. She was transferred here for further work up. No family at bedside today, patient does not provide much history. Aox3, follows multi-step cross body commands. WORLD forwards but not backwards. CN intact, Flat affect. Moves all limbs. Reflexes 2/4 symmetric. Babinski down, no Ayon's. I have personally reviewed/interpreted the following tests and diagnostics: serum paraneoplastic/autoimmune encephalopathy panels - (+) ALLEN 0.08, P/Q type Ca channel 0.1. MRI Brain w/wo 08/07: No acute findings, mild and moderate atrophy. rEEG: severe diffuse encephalopathy A/P: 82 yo female who presents with episodic altered mental status that improves with steroids. Exam today with flat affect/apathy and ?issue with attention, otherwise ok. Labs from OSH have shown +ALLEN/PQCaC Abs. ALLEN not elevated to point would cause neurologic disease - likely related to DM. P/Q Ca channel would be associated with lambert-eaton syndrome, which she does not have any clinical signs for - likely false positive. Considerations of her AMS would be possible autoimmune encephalitis of alternate etiology - consider steroid responsive encephalopathy with autoimmune thyroiditis (SREAT) vs delirium vs depression vs toxic metabolic. - MRI Brain w/wo - Serum labs: AIEP, myloperoxidase/Anti-tpo, TSH, B12, Folate - LP with basic studies, OCB, biofire, AIEP Melly Sandoval DO Attending Neurologist [facility] Procedure note* RISHI Berman - 09/11/2023 3:31 PM EDTAssociated Order(s): GENERAL PROCEDURE Lumbar Puncture Diagnostic Procedure PERFORMED BY: Delbert Gtz PA-C ASSISTED BY: Aleksandar Garcia RN PREOPERATIVE DIAGNOSIS(ES): subacute encephalopathy. POSTOPERATIVE DIAGNOSIS(ES): subacute encephalopathy. PROCEDURE START TIME:1506 PROCEDURE STOP TIME: 151 FINDINGS: 17 mL clear, CSF INDICATIONS FOR PROCEDURE: diagnostic evaluation. ANESTHESIA: Lidocaine 1% 3 ml given. PREMEDICATION: None PROCEDURE DETAILS: I reviewed and obtained consent with the patient for a Lumbar Puncture procedure. Labs obtained and reviewed. Immediately prior to the procedure a time out was performed. The patient was placed in left lateral decubitus position and the lumbar spine region was prepped and draped in a sterile fashion. The intervertebral space at L4-5 was identified. The skin and subcutaneous tissue were anesthetized using 3 ml of 1% plain lidocaine. The spinal needle was gently introduced in the L4-5 interspace in a horizontal direction. Opening pressure was measured to be 17 cm H2O. Approximately 17 cc of clear CSF was removed and sent for body fluid culture and direct smear; oligoclonal bands; encephalopathy, autoimmune; protein and glucose; meningitis/encephalitis panel; cell count and diff. The stylet was replaced and the spinal needle removed per protocol. The site was covered with a dry sterile dressing and pressure was applied. The patient was placed in supine position and remained supine for 1 hour post procedure. The patient tolerated the procedure well without any complications during or immediately after the procedure. She was monitored and released without any complications. SPECIMEN(S) REMOVED: 17 mL clear, CSF. DISPOSITION OF SPECIMEN(S): to lab for evaluation. CONDITION: stable ESTIMATED BLOOD LOSS: none COMPLICATIONS: none PLAN: The patient will remain on nursing unit and post procedural instructions were given. All questions were answered. The patient will follow up with Dr. Kirkland. Immediately following the procedure I communicated with Annelise Tay, the patient's RN, describing the procedure, results, patient condition, post procedure care & follow-up plans. This procedure does not require follow-up from the procedure team. This plan was also discussed with the primary service. documented in this encounter[facility] Hospital Discharge instructions* Discharge Instructions* Elisabeth Diaz RN - 09/11/2023 8:15 AM EDT Patient Experience Survey Reminder You may receive a survey in the mail within a few weeks regarding your hospitalization. This helps us to improve the care and services we provide at [facility]. We truly appreciate you taking the time to fill this out. We particularly welcome any specific comments you may have (good or bad!) regarding [facility] so that we may use them to continue to strive towards excellence for our patients. documented in this [facility] History and physical note* Dwight Tobin MD - 09/10/2023 8:41 PM EDT Hospital Medicine Admission History & Physical Patient: Lavinia Durand, 1940, [id number] Gen Med 6 Date of face to face patient encounter: 09/10/2023 ASSESSMENT AND PLAN Lavinia Durand is a 82 y.o. 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 Subacute encephalopathy: Seems to be ongoing/recurrent for past few weeks. 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 Recent head imaging and CSF analysis has been benign. Serum paraneoplastic panel was positive calcium channel binding antibody -consult Neurology -recheck serum paraneoplastic panel Hypertension: Seems to be historically difficult to control. -inpatient regimen at [place] was Coreg, amlodipine, lisinopril, hydralazine. Will continue for nowand adjust as able. #Acute on chronic anemia #Abdominal pain #Chronic gastritis, submucosal duodenal lesion, and melanosis on EGD Most recent Hgb stable around 8. EGD reports from [place] suggested EUS with FNA of duodenal lesion. -type and cross -repeat Hgb in morning -consult GI to see if further inpatient workup is warranted -follow up biopsies from [place] ESRD on HD MWF: Looks euvolemic currently. Has LUE AVF. -consult Neph for continuation of HD -Nephrocaps -renal diet Urothelial cancer: -outpatient follow up Steroid-induced hyperglycemia?: Does not appear to be on home meds but was getting Lantus at [place]. May just be steroid-induced hyperglycemia. -check A1c -cover with Humalog low CC and standard sliding scale for now Hypothyroidism: -continue home Synthroid Glaucoma: -continue home latanoprost at bedtime FEN/GI: Renal diet Prophylaxis: SCD's Access: PIV CODE STATUS: DNR-CCA at [facility]. Will leave as Full for now and will need to confirm with family. There have been discussions about palliative care recently. CHIEF COMPLAINT Altered mental status HISTORY OF PRESENT ILLNESS Lavinia Durand is a 82 y.o. female who has been admitted to [facility] as a transfer from [place] for encephalopathy. Patient has had recent issues with encephalopathy. Was admitted to [facility] in last month with confusion. Oncology and Neurology were consulted. She underwent LP which was reportedly unrevealing. Serum paraneoplastic panel was positive calcium channel binding antibody. MRI dwight had nothing acute. Oncology started IV steroids and her mental status improved. Further workup was recommended but family elevated to forgo this. She was discharged to SNF on prednisone (20 mg for 5 days, then 10 mg daily). She then presented to [place] after being more lethargic, refusing care, and complaining of abdominal pain and nausea and vomiting. She was markedly hypertensive on admission. CT head had nothing acute. Stated on cardene gtt. GI was consulted for worsening anemia in the setting of abdominal pain. EGD done 09/07 showed chronic gastritis, duodenal submucosal mass, and melanosis duodentitis. Biopsieswere taken. Patient reportedly received 100 mg of Solumedrol with improvement in engagement. On my assessment on arrival, patient is alert and oriented to person, hospital (but not name), year. Not oriented to month. Reports some abdominal pain. Otherwise denies complaints. Unable to relay much meaningful history on her own but is able to confirm some details of her recent history when asked. REVIEW OF SYSTEMS Constitutional: Negative for fever, chills, weight changes. HENT: Negative for congestion, sore throat. Eyes: Negative for vision changes. Cardiovascular: Negative for chest pain, palpitations, LE edema. Respiratory: Negative for shortness of breath, cough. Gastrointestinal: Positive for abdominal pain. Negative for nausea, vomiting, constipation, diarrhea, or blood in stool. Genitourinary: Negative for dysuria. Musculoskeletal: Negative for muscle or joint pain. Hematologic: Negative for easy bruising or bleeding Integumentary: Negative for rash. Neuro/Psych: Positive for confusion. PAST MEDICAL, SURGICAL, FAMILY & SOCIAL HISTORY Past Medical History: Diagnosis Date ESRD (end stage renal disease) Glaucoma Hypothyroidism Urothelial cancer Past Surgical History: Procedure Laterality Date KNEE REPLACEMENT NEPHRECTOMY PARTIAL HYSTERECTOMY TURP TURBT VEIN STRIPPING Family History Problem Relation Age of Onset Heart Disease - Other Mother Hypertension Mother Osteoporosis Mother Stroke Father Hypertension Father Social History Socioeconomic History Marital status: Tobacco Use Smoking status: Never Smokeless tobacco: Never Substance and Sexual Activity Alcohol use: Never Drug use: Never MEDICATIONS & ALLERGIES Prior to Admission Medications Prescriptions Last Dose Informant Patient Reported? Taking? Acetaminophen 325 MG tablet Yes No Sig: Take 2 tablets by mouth every 6 hours as needed for Mild Pain. Docusate 100 MG capsule Yes No Sig: Take 1 capsule by mouth 2 times daily as needed for Constipation. Doxazosin 4 MG tablet Yes No Sig: Take 1 tablet by mouth 2 times daily. Folic acid 1 MG tablet Yes No Sig: Take 1 tablet by mouth daily. Latanoprost 0.005 % Solution ophthalmic solution Yes No Sig: Place 1 drop in both eyes At bedtime. Levothyroxine 25 MCG tablet Yes No Sig: Take 1 tablet by mouth every morning before breakfast. Lisinopril 20 MG tablet Yes No Sig: Take 1 tablet by mouth 2 times daily. Melatonin 3 MG tablet Yes No Sig: Take 1 tablet by mouth at bedtime. Pantoprazole [address] tablet DR Yes No Sig: Take 1 tablet by mouth daily. Polyethylene glycol 17 g Pack packet Yes No Sig: Take 1 packet by mouth daily as needed for Constipation. amLODIPine 10 MG tablet Yes No Sig: Take 1 tablet by mouth daily. carveDILOL 12.5 MG tablet Yes No Sig: Take 1 tablet by mouth 2 times daily. faMOTIdine 20 MG tablet Yes No Sig: Take 1 tablet by mouth daily. hydrALAZINE 10 MG tablet Yes No Sig: Take 1 tablet by mouth every 6 hours as needed (SBP >180). hydrALAZINE 100 MG tablet Yes No Sig: Take 1 tablet by mouth every 8 hours. predniSONE 10 MG tablet Yes No Sig: Take 1 tablet by mouth daily. Facility-Administered Medications: None Allergies Allergen Reactions Atorvastatin Fatigue Humira (2 Pen) [Adalimumab] Rash Pork-Derived Products OBJECTIVE Temp: [98 F (36.7 C)] 98 F (36.7 C) Pulse (Heart Rate): [77] 77 Resp Rate: [16] 16 BP: (175)/(75) 175/75 O2 Sat (%): [95 %] 95 % Oxygen Therapy O2 Sat (%): 95 % O2 Device: room air Wt Readings from Last 3 Encounters: No data found for Wt There is no height or weight on file to calculate BMI. Physical Exam Constitutional: Lying in bed, NAD, appears as stated age HENT: NC/AT, oropharynx clear Eyes: Conjunctiva normal, PERRL, EOMI Cardiovascular: Regular rate and rhythm. +systolic murmur. No LE edema. 2+ posterior tibial pulses. Respiratory: Normal work of breathing, clear to auscultation bilaterally Abdominal: Soft, non-distended, non-tender, normoactive BS MSK: Warm and well perfused extremities. LUE AVF with thrill. Skin: No rash, lesions, or breakdown Neurological: Alert and oriented to person, hospital and year. Not to month. CN's II-XII grossly intact, 4/5 bilateral upper and lower extremity strength, sensation intact throughout Psychiatric: Flat affect LABS AND DIAGNOSTIC STUDIES No results found for: ALT, TRANSFERASEA, AST, GGT, GAMMAGT, ALKPHOS, BILITOTAL, BILIDIRECT, ALBUMIN documented in this encounter[facility] NoteHNO ID: [id number] Author: ROB TREJO RN Service: ? Author Type: Registered Nurse Type: Nursing Progress Note Filed: 08/15/2023 15:41 Note Text: Report called to Jorge Alberto at [facility] no further questions at this time [facility]04-19-2024 NoteHNO ID: [id number] Author: LISETTE CASON MD Service: Nephrology Author Type: Physician Type: Progress Notes Filed: 08/15/2023 12:21 Note Text: INPATIENT HEMODIALYSIS PROGRESS NOTE SERVICE DATE: 08/15/2023 SERVICE TIME: 10 am Subjective Patient seen on dialysis, single evaluation. Orders confirmed. Details per documentation in [facility] Dialysis EMR. Patient tolerating treatment well. System running well, no clotting events. Access without issues. A bit more alert. Objective Labs: Recent Labs 08/15/23 0442 08/13/23 0502 CREAT 4.14* 4.63* BUN 75* 69* NA 131* 130* K 4.7 5.4* CHLOR 96* 93* CO2 28 29 ANION 7 8 GLUC 111* 235* CA 9.1 9.6 WBC -- 11.73* HB -- 9.0* HCT -- 27.9* PLT -- 225 Impression/Recommendations 1. ESRD on MWF 2. Hypertensive urgency 3. Generalized weakness and debility 4. Anemia of CKD 5. Encephalopathy (?premorbid dementia v/s paraneopalstic syndrome) 6. H/o left RCC s/p resection with bladder recurrence x2 Complete IHD as ordered. 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 No change to IHD Rx. Follow URR, goal 70%. Continue UF as tolerated following hemodynamics. BP is better Encephalopathy appears to be resolving slowly Ok to D/C from my standpoint. Medication and Non-Pharmacologic VTE Prophylaxis/Anticoagulants Anticoagulant AND Antiplatelet Medications (From admission, onward) Start Dose Route Frequency Last Action Ordered Stop 08/09/23 1830 heparin 5,000 Units injection 5,000 Units SUBCUTANEOUS EVERY 12 HOURS Given, 08/14 0856 08/09/23 1822 -- VTE Prophylaxis: VTE prophylaxis appropriate SIGNATURE: Lisette Cason MD PATIENT NAME: Lavinia Durand DATE: August 15, 2023 TIME: 12:20 [facility] NoteHNO ID: [id number] Author: LILI MODI MD Service: Hematology/Oncology Author Type: Nurse Practitioner Type: Progress Notes Filed: 08/15/2023 18:14 Note Text: Attestation signed by Lili Modi MD at 08/15/2023 6:14 PM [facility]. Advised to slow taper off steroids. Prognosis poor. Continue supportive care. ONCOLOGY SERVICE PROGRESS NOTE SERVICE DATE: 08/15/2023 SERVICE TIME: 11:06 AM Subjective INTERVAL HPI: Patient seen and examined in dialysis. I also spoke with the patient's daughter. Her mentation continues to wax and wane. According to the patient's daughter, patient is more groggy this morning. Discussed with nursing staff and Dr. Parr. [facility]. PHYSICAL EXAM: Vitals: Maximum temperature (last 24 hours): Temp (24hrs), Av.7 ?C (98 ?F), Min:36.4 ?C (97.5 ?F), Max:36.9 ?C (98.4 ?F) BP 175/61 Pulse 79 Temp 36.4 ?C (97.5 ?F) (Axillary) Resp 20 Ht 152.4 cm (5') Wt 45.5 kg (100 lb 6.4 oz) SpO2 98% BMI 19.61 kg/m? General: Chronically ill-appearing. Confused at times. Neck: Supple without palpable lymphadenopathy Lungs: Clear to auscultation, no wheezing, rales, or rhonchi. Cardiac: Regular rhythm and rate, S1-S2 within normal limits, no murmurs Abdomen: Soft, nontender, nondistended, bowel sounds are positive, no hepatosplenomegaly palpated. Extremities: No edema, cyanosis, or clubbing. Skin: No rashes or breakdown. Lymphatic: No palpable peripheral lymphadenopathy. Neurologic: Cranial nerves from II-XII intact grossly. Generalized weakness Psychiatry: Normal affect DATA: Diagnostic tests reviewed for today's visit: Recent Labs 08/15/23 0442 08/13/23 0502 WBC -- 11.73* HB -- 9.0* HCT -- 27.9* MCV -- 91.5 PLT -- 225 CREAT 4.14* 4.63* CA 9.1 9.6 Assessment/Plan 1) AMS 82-year-old female with history of left renal cell cancer status post surgery followed by local recurrence in the bladder x 2. Her most recent recurrent disease was in the bladder status post TURBT. There was no muscle involvement. She did receive intravesical BCG treatment. Patient now admitted with encephalopathy of unclear etiology. Question of paraneoplastic syndrome. MRI brain and CSF negative. Her mentation has been waxing and waning, but improved overall. We have continued to wean her steroids and she is down to prednisone 20 mg p.o. daily. Patient continues to wax and wane. Will continue her prednisone 20 mg daily p.o. for the next 5 days and then cut back to 10 mg and continue to taper as an outpatient. We did discuss whole-body CT scans, however patient's family wishes to hold off at this time as it would not change our management. This is certainly reasonable as it would not change our management. Will continue to follow the patient along with you. Discussed with the patient's daughter in detail and all of her questions answered to the best of my ability. Above plan of care reviewed with Dr. Modi and he agrees. SIGNATURE: Pari Perez APRN.VIVEK PATIENT NAME: Lavinia Durand DATE: August 15, 2023 TIME: 11:06 [facility]04-18-2024 NoteHNO ID: [id number] Author: LILI MODI MD Service: Hematology/Oncology Author Type: Nurse Practitioner Type: Progress Notes Filed: 08/14/2023 16:56 Note Text: Attestation signed by Lili Modi MD at 08/14/2023 4:56 PM Will discontinue Solu-Medrol and switch to prednisone 20 mg daily and slowly taper off. She does have diabetes. Hemoglobin of 9 g with platelets of 225 and white counts of 11,000 stable. Hold off full body CT scans. ONCOLOGY SERVICE PROGRESS NOTE SERVICE DATE: 08/14/2023 SERVICE TIME: 2:02 PM Subjective INTERVAL HPI: Patient laying awake in bed.. Daughter present at bedside. She was transitioned to prednisone 20 mg p.o. daily yesterday. Her mentation is improved. She is doing better with therapy. PHYSICAL EXAM: Vitals: Maximum temperature (last 24 hours): Temp (24hrs), Av.6 ?C (97.8 ?F), Min:36.1 ?C (97 ?F), Max:36.9 ?C (98.4 ?F) BP 180/71 Pulse 60 Temp 36.9 ?C (98.4 ?F) (Oral) Resp 25 Ht 152.4 cm (5') Wt 45.4 kg (100 lb 1.6 oz) SpO2 98% BMI 19.55 kg/m? General: Chronically ill-appearing. Confused at times. Much improved however Neck: Supple without palpable lymphadenopathy Lungs: Clear to auscultation, no wheezing, rales, or rhonchi. Cardiac: Regular rhythm and rate, S1-S2 within normal limits, no murmurs Abdomen: Soft, nontender, nondistended, bowel sounds are positive, no hepatosplenomegaly palpated. Extremities: No edema, cyanosis, or clubbing. Skin: No rashes or breakdown. Lymphatic: No palpable peripheral lymphadenopathy. Neurologic: Cranial nerves from II-XII intact grossly. Generalized weakness Psychiatry: Normal affect DATA: Diagnostic tests reviewed for today's visit: Recent Labs 08/13/23 0502 08/12/23 0513 WBC 11.73* 12.41* HB 9.0* 9.9* HCT 27.9* 30.1* MCV 91.5 89.3 PLT 225 221 CREAT 4.63* 3.17* CA 9.6 9.9 Assessment/Plan 1) AMS 82-year-old female with history of left renal cell cancer status post surgery followed by local recurrence in the bladder x 2. Her most recent recurrent disease was in the bladder status post TURBT. There was no muscle involvement. She did receive intravesical BCG treatment. Patient now admitted with encephalopathy of unclear etiology. Question of paraneoplastic syndrome. MRI brain and CSF negative. Her mentation has been waxing and waning, but improved overall. We have continued to wean her steroids and she is down to prednisone 20 mg p.o. daily. Mentation remains stable/improved. Will continue current dose of steroids and slowly taper. We did discuss whole-body CT scans, however patient's family wishes to hold off at this time as it would not change our management. This is certainly reasonable as it would not change our management. Will continue to follow the patient along with you. Discussed with the patient's daughter in detail and all of her questions answered to the best of my ability. Above plan of care reviewed with Dr. Modi and he agrees. SIGNATURE: Pari Perez APRN.VIVEK PATIENT NAME: Lavinia Durand DATE: August 14, 2023 TIME: 2:02 [facility]04-18-2024 NoteHNO ID: [id number] Author: RON PARR DO Service: General Internal Medicine Author Type: Physician Type: Progress Notes Filed: 08/14/2023 19:19 Note Text: DEPARTMENT OF HOSPITAL MEDICINE PROGRESS NOTE SERVICE DATE: 08/14/2023 SERVICE TIME: 8:03 AM Hospital Medicine/Primary Attending: Ron Parr DO Subjective INTERVAL HPI: 82 yr old F who presented with confusion Sitting in chair, eating breakfast Daughter (parts counter clerk from [place]) at bedside and provides most of the HPI Per daughter, patient's drowsiness and confusion overall improved More alert and answers questions However, she is still unaware of where she is at Tolerating some PO with assistance of family No new issues BP still very elevated in the am Current Facility-Administered Medications Medication Dose Route Frequency dextrose 40 % 15 g 15 g ORAL PRN Or glucagon 1 mg injection 1 mg INTRAMUSCULAR PRN Or dextrose 10% iv bolus 12.5 g INTRAVENOUS PRN insulin lispro injection (rapid acting) (ADMElog) SUBCUTANEOUS w MEALS pantoprazole DR 40 mg tab(s) (PROTONIX) 40 mg ORAL DAILY folic acid 1 mg tab(s) 1 mg ORAL DAILY levothyroxine 25 mcg tab(s) (SYNTHROID) 25 mcg ORAL BEFORE BREAKFAST DAILY NaCl 0.9% iv flush bag 20 mL INTRAVENOUS PRN ondansetron 4 mg tab(s) (ZOFRAN) 4 mg ORAL q 6 H PRN Or ondansetron (PF) 4 mg injection (ZOFRAN) 4 mg INTRAVENOUS q 6 H PRN acetaminophen 650 mg tab(s) (TYLENOL) 650 mg ORAL q 6 H PRN famotidine 20 mg tab(s) (PEPCID) 20 mg ORAL DAILY carvedilol 25 mg tab(s) (COREG) 25 mg ORAL BID w MEALS doxazosin 4 mg tab(s) (CARDURA) 4 mg ORAL BID heparin 5,000 Units injection 5,000 Units SUBCUTANEOUS q 12 H melatonin 3 mg tab(s) 3 mg ORAL DAILY (8 PM) docusate sodium 100 mg cap(s) (COLACE) 100 mg ORAL BID polyethylene glycol 3350 17 g packet 17 g ORAL DAILY hydrALAZINE 10 mg tab(s) (APRESOLINE) 10 mg ORAL q 6 H PRN lisinopril 20 mg tab(s) (ZESTRIL) 20 mg ORAL BID predniSONE 20 mg tab(s) (DELTASONE) 20 mg ORAL DAILY hydrALAZINE 100 mg tab(s) (APRESOLINE) 100 mg ORAL q 8 H Objective PHYSICAL EXAM: BP 132/60 Pulse 67 Temp (Src) 97.5 (Oral) Resp 21 Ht 5' 0 (1.52m) Wt 100 lb 1.6 oz (45.4kg) SpO2 98% BMI 19.55 kg/(m2). O2 Therapy: Room Air, Liters: 5 Physical Exam Performed PHYSICAL EXAMINATION: General appearance: NAD, appears comfortable, frail/weak, ill appearance, sitting in bed, sleepy but awakens and answers appropriately Eyes: no scleral icterus, conjunctiva normal Oropharynx: MMM Lungs: Lungs clear to auscultation. No wheezing, rhonchi, rales. Heart: RRR, 3/6 systolic murmur Abdomen: Nondistended Neuro: No tremor, no seizure Ext: no LE edema Lines, Drains, and Airways Line Duration Peripheral 08/12/23 0930 [facility] Short Right Forearm 20 Gauge 1 day DATA: Diagnostic tests reviewed for today's visit: Most recent labs Most recent imaging CBC, Coags, BMP, Mg, Phos Recent Labs 08/13/23 0502 08/12/23 0513 WBC 11.73* 12.41* HB 9.0* 9.9* HCT 27.9* 30.1* PLT 225 221 NA 130* 134* K 5.4* 4.4 CHLOR 93* 96* CO2 29 32 BUN 69* 39* CREAT 4.63* 3.17* GLUC 235* 166* CA 9.6 9.9 Assessment/Plan Problem List AMS (altered mental status) (POA: Yes) ESRD (end stage renal disease) (HCC) (POA: Yes) Chronic kidney disease due to type 2 diabetes mellitus (HCC) (POA: Yes) Severe protein-calorie malnutrition (HCC) (POA: Yes) Hyponatremia (POA: Yes) Hyperkalemia (POA: No) Acute metabolic encephalopathy (POA: Yes) HOSPITAL COURSE: Lavinia Durand is a 82 year old female with past medical history of 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 [facility]04-17-2024 NoteHNO ID: [id number] Author: LISETTE CASON MD Service: Nephrology Author Type: Physician Type: Progress Notes Filed: 08/13/2023 11:28 Note Text: CONSULT PROGRESS NOTE NEPHROLOGY SERVICE SERVICE DATE: 08/13/2023 SERVICE TIME: 11:24 AM Subjective INTERVAL HISTORY: A bit confused this morning. Had nocturnal hypotension, documented systolic in the 70's. MEDICATIONS: Current Facility-Administered Medications Medication Dose Route Frequency dextrose 40 % 15 g 15 g ORAL PRN Or glucagon 1 mg injection 1 mg INTRAMUSCULAR PRN Or dextrose 10% iv bolus 12.5 g INTRAVENOUS PRN insulin lispro injection (rapid acting) (ADMElog) SUBCUTANEOUS w MEALS HYDROcodone 5 mg - acetaminophen 325 mg tablet (NORCO) 1 tablet ORAL q [address] 40 mg tab(s) (PROTONIX) 40 mg ORAL DAILY folic acid 1 mg tab(s) 1 mg ORAL DAILY levothyroxine 25 mcg tab(s) (SYNTHROID) 25 mcg ORAL BEFORE BREAKFAST DAILY NaCl 0.9% iv flush bag 20 mL INTRAVENOUS PRN ondansetron 4 mg tab(s) (ZOFRAN) 4 mg ORAL q 6 H PRN Or ondansetron (PF) 4 mg injection (ZOFRAN) 4 mg INTRAVENOUS q 6 H PRN acetaminophen 650 mg tab(s) (TYLENOL) 650 mg ORAL q 6 H PRN famotidine 20 mg tab(s) (PEPCID) 20 mg ORAL DAILY carvedilol 25 mg tab(s) (COREG) 25 mg ORAL BID w MEALS NIFEdipine ER 90 mg tab(s) (PROCARDIA XL) 90 mg ORAL BID doxazosin 4 mg tab(s) (CARDURA) 4 mg ORAL BID heparin 5,000 Units injection 5,000 Units SUBCUTANEOUS q 12 H hydrALAZINE 50 mg tab(s) (APRESOLINE) 50 mg ORAL q 8 H methylPREDNISolone sod succinate(PF) 40 mg injection (SOLU-Medrol) 40 mg INTRAVENOUS q 12 H melatonin 3 mg tab(s) 3 mg ORAL DAILY (8 PM) docusate sodium 100 mg cap(s) (COLACE) 100 mg ORAL BID polyethylene glycol 3350 17 g packet 17 g ORAL DAILY hydrALAZINE 10 mg tab(s) (APRESOLINE) 10 mg ORAL q 6 H PRN lisinopril 20 mg tab(s) (ZESTRIL) 20 mg ORAL BID [START ON 08/14/2023] gabapentin 100 mg cap(s) (NEURONTIN) 100 mg ORAL DAILY Objective PHYSICAL EXAM: BP (!) 208/83 Pulse 70 Temp 36.3 ?C (97.4 ?F) (Oral) Resp 22 Ht 152.4 cm (5') Wt 46.4 kg (102 lb 3.2 oz) SpO2 99% BMI 19.96 kg/m? Intake/Output Summary (Last 24 hours) at 08/13/2023 1124 Last data filed at 08/12/2023 1743 Gross per 24 hour Intake 940 ml Output 500 ml Net 440 ml Patient altered. Resting in bed. Lungs are clear anteriorly bilaterally Cardiovascular with normal S1-S2 without friction rub Abdomen soft and nontender Lower extremities without edema. DATA: Diagnostic tests reviewed for today's visit: Most recent labs and imaging results. Recent Labs 08/13/23 0502 08/12/23 0513 08/11/23 0502 08/10/23 0432 08/09/23 0345 08/08/23 0442 NA 130* 134* 129* 132* 141 133* K 5.4* 4.4 5.3* 4.8 4.0 5.0 CHLOR 93* 96* 93* 95* 101 98 CO2 29 32 25 27 30 24 BUN 69* 39* 72* 49* 23 41* CREAT 4.63* 3.17* 5.82* 4.50* 3.04* 5.22* GLUC 235* 166* 193* 170* 89 131* ANION 8 6 11 10 10 11 CA 9.6 9.9 10.0 9.2 9.5 9.5 MG -- -- -- -- 2.1 2.0 Recent Labs 08/13/23 0502 08/12/23 0513 08/11/23 0502 WBC 11.73* 12.41* 8.92 HB 9.0* 9.9* 10.2* HCT 27.9* 30.1* 30.6* PLT 225 221 201 Recent Labs 08/13/23 0502 08/10/23 0432 08/09/23 0831 B12 -- -- >4,000* HB 9.0* < > -- < > = values in this interval not displayed. Recent Labs 08/13/23 0502 08/12/23 0513 08/11/23 0502 08/07/23 0332 08/06/23 0313 ALKPHOS -- -- 72 -- -- CA 9.6 < > 10.0 < > 9.7 P -- -- -- -- 7.5* ALB -- -- 2.2* -- -- < > = values in this interval not displayed. No results for input(s): BUNRAT, BUNPR, BUNPO in the last 168 hours. Recent Labs 08/05/23 0352 HEPSABQ Negative Assessment/Plan 1. ESRD on MWF 2. Hypertensive urgency 3. Generalized weakness and debility 4. Anemia of CKD 5. Encephalopathy (?premorbid dementia v/s paraneopalstic syndrome) 6. H/o left RCC s/p resection with bladder recurrence x2 PLAN 1. HD today per regular schedule 2. Bp labile. Had nocturnal hypotension with systolic in the 70's. Hypertensive this morning with systolic in the 200's 3. Not fluid overloaded. No renal artery stenosis. Etiology of labile bp is unclear. I suspect there is a neurogenic component to this. No intervention for now. High risk of causing life threatening hypotension with uptitration of meds. 4. 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 Being tapered 5. [facility] CT on hold as it would not record changer assembler. Poor residential prognosis. 6. Family has contemplated hospice care 1 week or so ago. This may be the more sensible care plan at this point. SIGNATURE: Lisette Cason MD PATIENT NAME: Lavinia Durand DATE: August 13, 2023 TIME: 11:24 [facility]04-17-2024 NoteHNO ID: [id number] Author: LILI MODI MD Service: Hematology/Oncology Author Type: Nurse Practitioner Type: Progress Notes Filed: 08/14/2023 16:50 Note Text: Attestation signed by Lili Modi MD at 08/14/2023 4:50 PM Patient seen and discussed with nurse chanduer. Continue slow taper of steroids. Hemoglobin 9 g related to anemia of chronic disease/end-stage renal disease. As needed blood transfusion. Continue CIERA support with dialysis and iron infusion. ONCOLOGY SERVICE PROGRESS NOTE SERVICE DATE: 08/13/2023 SERVICE TIME: 11:03 AM Subjective INTERVAL HPI: Patient laying awake in bed. Her daughter is present at the bedside. Her mentation continues to wax and wane. She is scheduled for dialysis later this afternoon. Patient did get up to the chair yesterday with physical therapy. PHYSICAL EXAM: Vitals: Maximum temperature (last 24 hours): Temp (24hrs), Av.5 ?C (97.7 ?F), Min:36.2 ?C (97.2 ?F), Max:37 ?C (98.6 ?F) BP (!) 208/83 Pulse 70 Temp 36.3 ?C (97.4 ?F) (Oral) Resp 22 Ht 152.4 cm (5') Wt 46.4 kg (102 lb 3.2 oz) SpO2 99% BMI 19.96 kg/m? General: Chronically ill-appearing. Groggy. Not as talkative today. Neck: Supple without palpable lymphadenopathy Lungs: Clear to auscultation, no wheezing, rales, or rhonchi. Cardiac: Regular rhythm and rate, +murmur Abdomen: Soft, nontender, nondistended, bowel sounds are positive, no hepatosplenomegaly palpated. Extremities: No edema, cyanosis, or clubbing. Skin: No rashes or breakdown. Lymphatic: No palpable peripheral lymphadenopathy. Neurologic: Generalized weakness Psychiatry: Flat. DATA: Diagnostic tests reviewed for today's visit: Recent Labs 08/13/23 0502 08/12/23 0513 08/11/23 0502 WBC 11.73* 12.41* 8.92 HB 9.0* 9.9* 10.2* HCT 27.9* 30.1* 30.6* MCV 91.5 89.3 89.2 PLT 225 221 201 CREAT 4.63* 3.17* 5.82* TBILI -- -- <0.2* AST -- -- 13 ALT -- -- 7* ALKPHOS -- -- 72 CA 9.6 9.9 10.0 Assessment/Plan 1) AMS 82-year-old female with history of left renal cell cancer status post surgery followed by local recurrence in the bladder x 2. Her most recent recurrent disease was in the bladder status post TURBT. There was no muscle involvement. She did receive intravesical BCG treatment. Patient now admitted with encephalopathy of unclear etiology. Question of paraneoplastic syndrome. MRI brain and CSF negative. Her mentation has been waxing and waning, but improved overall. Will continue her Solu-Medrol 40 mg twice daily and plans to slowly taper. We did discuss whole-body CT scans, however patient's family wishes to hold off at this time as it would not change our management. This is certainly reasonable as it would not change our management. Will continue to follow the patient along with you. Discussed with the patient's daughter in detail and all of her questions answered to the best of my ability. Above plan of care reviewed with Dr. Modi and he agrees. SIGNATURE: Pari Perez APRN.CNP PATIENT NAME: Lavinia Durand DATE: August 13, 2023 TIME: 11:03 [facility]04-17-2024 NoteHNO ID: [id number] Author: RON PARR DO Service: General Internal Medicine Author Type: Physician Type: Progress Notes Filed: 08/13/2023 20:09 Note Text: DEPARTMENT OF HOSPITAL MEDICINE PROGRESS NOTE SERVICE DATE: 08/13/2023 SERVICE TIME: 8:08 AM Hospital Medicine/Primary Attending: Ron Parr DO Subjective INTERVAL HPI: 82 yr old F who presented with confusion Sitting in bed Daughter (parts counter clerk from [place]) at bedside and provides most of the HPI Per daughter, patient's drowsiness and confusion slightly improved Has trouble swallowing large pills (I.e. nifedipine and her cholesterol med) BP high this morning -> but has been dropping too low with IV prn's Current Facility-Administered Medications Medication Dose Route Frequency dextrose 40 % 15 g 15 g ORAL PRN Or glucagon 1 mg injection 1 mg INTRAMUSCULAR PRN Or dextrose 10% iv bolus 12.5 g INTRAVENOUS PRN insulin lispro injection (rapid acting) (ADMElog) SUBCUTANEOUS w MEALS icosapent ethyl 2 g cap(s) (VASCEPA) 2 g ORAL BID w MEALS HYDROcodone 5 mg - acetaminophen 325 mg tablet (NORCO) 1 tablet ORAL q [address] 40 mg tab(s) (PROTONIX) 40 mg ORAL DAILY gabapentin 200 mg cap(s) (NEURONTIN) 200 mg ORAL DAILY folic acid 1 mg tab(s) 1 mg ORAL DAILY levothyroxine 25 mcg tab(s) (SYNTHROID) 25 mcg ORAL BEFORE BREAKFAST DAILY NaCl 0.9% iv flush bag 20 mL INTRAVENOUS PRN ondansetron 4 mg tab(s) (ZOFRAN) 4 mg ORAL q 6 H PRN Or ondansetron (PF) 4 mg injection (ZOFRAN) 4 mg INTRAVENOUS q 6 H PRN acetaminophen 650 mg tab(s) (TYLENOL) 650 mg ORAL q 6 H PRN labetalol 10 mg injection (NORMODYNE) 10 mg INTRAVENOUS q 4 H PRN hydrALAZINE 10 mg injection (APRESOLINE) 10 mg INTRAVENOUS q 4 H PRN niCARdipine iv infusion 40 mg in NaCl (iso-osmotic) 200 mL (CARDENE) 2.5-15 mg/hr INTRAVENOUS CONTINUOUS famotidine 20 mg tab(s) (PEPCID) 20 mg ORAL DAILY carvedilol 25 mg tab(s) (COREG) 25 mg ORAL BID w MEALS NIFEdipine ER 90 mg tab(s) (PROCARDIA XL) 90 mg ORAL BID doxazosin 4 mg tab(s) (CARDURA) 4 mg ORAL BID heparin 5,000 Units injection 5,000 Units SUBCUTANEOUS q 12 H hydrALAZINE 50 mg tab(s) (APRESOLINE) 50 mg ORAL q 8 H lisinopril 40 mg tab(s) (ZESTRIL) 40 mg ORAL DAILY methylPREDNISolone sod succinate(PF) 40 mg injection (SOLU-Medrol) 40 mg INTRAVENOUS q 12 H melatonin 3 mg tab(s) 3 mg ORAL DAILY (8 PM) docusate sodium 100 mg cap(s) (COLACE) 100 mg ORAL BID polyethylene glycol 3350 17 g packet 17 g ORAL DAILY Objective PHYSICAL EXAM: BP 201/87 Pulse 80 Temp (Src) 97.6 (Oral) Resp 20 Ht 5' 0 (1.52m) Wt 102 lb 3.2 oz (46.4kg) SpO2 98% BMI 19.96 kg/(m2). Physical Exam Performed PHYSICAL EXAMINATION: General appearance: NAD, appears comfortable, frail/weak, ill appearance, sitting in bed, sleepy but awakens and answers appropriately Eyes: no scleral icterus, conjunctiva normal Oropharynx: MMM Lungs: Lungs clear to auscultation. No wheezing, rhonchi, rales. Heart: RRR, 3/6 systolic murmur Abdomen: Nondistended Neuro: No tremor, no seizure Ext: no LE edema Lines, Drains, and Airways Line Duration Peripheral 08/12/23 0930 [facility] Short Right Forearm 20 Gauge <1 day DATA: Diagnostic tests reviewed for today's visit: Most recent labs Most recent imaging CBC, Coags, BMP, Mg, Phos Recent Labs 08/13/23 0502 08/12/23 0513 08/11/23 0502 WBC 11.73* 12.41* 8.92 HB 9.0* 9.9* 10.2* HCT 27.9* 30.1* 30.6* PLT 225 221 201 NA 130* 134* 129* K 5.4* 4.4 5.3* CHLOR 93* 96* 93* CO2 29 32 25 BUN 69* 39* 72* CREAT 4.63* 3.17* 5.82* GLUC 235* 166* 193* CA 9.6 9.9 10.0 Assessment/Plan Problem List AMS (altered mental status) (POA: Yes) Severe protein-calorie malnutrition (HCC) (POA: Yes) HOSPITAL COURSE: Lavinia Durand is a 82 year old female with past medical history of 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 Appreciate oncology and neurology Currently on solu-medrol 40 mg BID -> discussed change to oral prednisone with oncology HTN urgency Extensive chart review Tends to be highest in the am Continue carvedilol 25 mg BID, hydralazine 50 mg TID Change lisinopril to 20 mg BID Stop nifedipine as patient unable to swallow the pills Consider increasing hydralazine to 75 mg or 100 mg Also can consider amlodipine with BID dosing as well Hypotension Becomes hypotensive with IV prn meds DC prn IV hydralazine and prn IV labetalol Hyponatremia Suspect from fluid shifts Hyperkalemia 2/2 ESRD Due for HD today Hypochloremia DM2 with hyperglycemia Insulin sliding scale Upper tract urothelial canc (more content not included)...[facility] 08-12-2023 NoteHNO ID: [id number] Author: EMA HARRISON MD Service: Hospital Medicine Author Type: Physician Type: Progress Notes Filed: 08/12/2023 16:44 Note Text: INPATIENT PROGRESS NOTE SERVICE DATE: 08/12/2023 SERVICE TIME: 4:37 PM PRIMARY SERVICE: Internal medicine Subjective CHIEF COMPLAINT:confusion INTERVAL HPI: Patient slightly more awake today and attempting to answer questions. A+Ox2. Seems tired and falls asleep quickly. Family present in the room. Patient did not answer my review of systems questions Signoff note: Patient is an 82-year-old female who presented to the hospital with confusion. Patient because of confusion is currently unknown. She is currently on Solu-Medrol/steroids due to some concern for underlying rheumatologic or paraneoplastic process. Heme-onc, neurology, nephrology have been following. Plan for placement at facility at discharge. Of note patient has multiple family members who are physicians. See notes for additional details Current Facility-Administered Medications Medication Dose Route Frequency dextrose 40 % 15 g 15 g ORAL PRN Or glucagon 1 mg injection 1 mg INTRAMUSCULAR PRN Or dextrose 10% iv bolus 12.5 g INTRAVENOUS PRN insulin lispro injection (rapid acting) (ADMElog) SUBCUTANEOUS w MEALS icosapent ethyl 2 g cap(s) (VASCEPA) 2 g ORAL BID w MEALS HYDROcodone 5 mg - acetaminophen 325 mg tablet (NORCO) 1 tablet ORAL q [address] 40 mg tab(s) (PROTONIX) 40 mg ORAL DAILY gabapentin 200 mg cap(s) (NEURONTIN) 200 mg ORAL DAILY folic acid 1 mg tab(s) 1 mg ORAL DAILY levothyroxine 25 mcg tab(s) (SYNTHROID) 25 mcg ORAL BEFORE BREAKFAST DAILY NaCl 0.9% iv flush bag 20 mL INTRAVENOUS PRN ondansetron 4 mg tab(s) (ZOFRAN) 4 mg ORAL q 6 H PRN Or ondansetron (PF) 4 mg injection (ZOFRAN) 4 mg INTRAVENOUS q 6 H PRN acetaminophen 650 mg tab(s) (TYLENOL) 650 mg ORAL q 6 H PRN labetalol 10 mg injection (NORMODYNE) 10 mg INTRAVENOUS q 4 H PRN hydrALAZINE 10 mg injection (APRESOLINE) 10 mg INTRAVENOUS q 4 H PRN niCARdipine iv infusion 40 mg in NaCl (iso-osmotic) 200 mL (CARDENE) 2.5-15 mg/hr INTRAVENOUS CONTINUOUS famotidine 20 mg tab(s) (PEPCID) 20 mg ORAL DAILY carvedilol 25 mg tab(s) (COREG) 25 mg ORAL BID w MEALS NIFEdipine ER 90 mg tab(s) (PROCARDIA XL) 90 mg ORAL BID doxazosin 4 mg tab(s) (CARDURA) 4 mg ORAL BID heparin 5,000 Units injection 5,000 Units SUBCUTANEOUS q 12 H hydrALAZINE 50 mg tab(s) (APRESOLINE) 50 mg ORAL q 8 H lisinopril 40 mg tab(s) (ZESTRIL) 40 mg ORAL DAILY methylPREDNISolone sod succinate(PF) 40 mg injection (SOLU-Medrol) 40 mg INTRAVENOUS q 12 H Objective PHYSICAL EXAM: BP 110/57 Pulse 74 Temp (Src) 98.6 (Oral) Resp 14 Ht 5' 0 (1.52m) Wt 97 lb 12.8 oz (44.4kg) SpO2 96% BMI 19.10 kg/(m2). O2 Therapy: Room Air Physical Exam Performed General: Elderly female, A+Ox2 although still falls asleep quickly, and is in no acute respiratory distress HEENT: Normal cephalic, atraumatic, PERRLA, small lump from fall on back of head Lungs: Clear to auscultation, no wheezing, rales, or rhonchi. Cardiac: Regular rhythm and rate, no murmurs, no rubs. Abdomen: Soft, nontender, nondistended, bowel sounds are active. Extremities: No edema, cyanosis, or clubbing. Skin: No rashes or breakdown. Musculoskeletal: Normal MS exam, moves all extremities Lymphatic: Negative cervical, supra-clavicular, groin lymphadenopathy. Neurologic: Patient did not follow directions for cranial nerve assessment Psychiatry: Confused difficult to assess. DATA: Diagnostic tests reviewed for today's visit: Most recent labs Assessment/Plan Encephalopathy-family describes some likely early dementia outpatient with her forgetting things like keys. They do note that seem to be somewhat worse lately with reported falls at rehab. Check vitamin B12 level and ammonia were checked today. Vitamin B12 level quite elevated greater than 4000, ammonia was unremarkable. ESR elevated. Neurology has been following. MRI was read as no acute intracranial process. Heme onc following. Rheumatologic test so far have been negative, normal C3-C4 CA 19 9, PRAKASH, ANCA . RPR and HIV were negative. Paraneoplastic panel outstanding. Patient is currently on trial of steroids after discussion with her daughter who is also a physician ESRD-nephrology's been following for dialysis needs dialysis Friday UTI-urine culture from [facility] was reported to me as no growth per phone discussion with [facility]. patient has been on ceftriaxone which was discontinued, white blood cell count was 12.41 on last check Diabetes-blood glucose level was 154 on last check patient has sliding scale insulin ordered, sporadic oral intake reported Hypertension-blood pressure typically uncontrolled. on last check was 110/57, patient is currently on Coreg, doxazosin, nifedipine hydralazine and lisinopril. Patient also with prn therapy. (more content not included)...[facility]04-16-2024 NoteHNO ID: [id number] Author: LILI MODI MD Service: Hematology/Oncology Author Type: Nurse Practitioner Type: Progress Notes Filed: 08/14/2023 16:47 Note Text: Attestation signed by Lili Modi MD at 08/14/2023 4:47 PM Overall some improvement in her encephalopathy. She is more awake. But remain extremely fatigued and tired. Poor appetite. Will hold off any scans at this point as per family. Will slowly taper off the steroids. Discussed with the patient's daughter. ONCOLOGY SERVICE PROGRESS NOTE SERVICE DATE: 08/12/2023 SERVICE TIME: 1:02 PM Subjective INTERVAL HPI: Patient laying awake in bed. Daughter present at bedside. Patient is more awake and alert today. According to the daughter, she did have some confusion throughout the night and was trying to get out of bed. White blood cell count 12.4, hemoglobin 9.9, platelets 222,000. PHYSICAL EXAM: Vitals: Maximum temperature (last 24 hours): Temp (24hrs), Av.6 ?C (97.8 ?F), Min:36.2 ?C (97.2 ?F), Max:36.8 ?C (98.2 ?F) BP 102/55 Pulse 78 Temp 36.2 ?C (97.2 ?F) (Oral) Resp 14 Ht 152.4 cm (5') Wt 44.4 kg (97 lb 12.8 oz) SpO2 96% BMI 19.10 kg/m? General: Chronically ill-appearing. Groggy, but more awake today. Answering questions. Neck: Supple without palpable lymphadenopathy Lungs: Clear to auscultation, no wheezing, rales, or rhonchi. Cardiac: Regular rhythm and rate, +murmur Abdomen: Soft, nontender, nondistended, bowel sounds are positive, no hepatosplenomegaly palpated. Extremities: No edema, cyanosis, or clubbing. Skin: No rashes or breakdown. Lymphatic: No palpable peripheral lymphadenopathy. Neurologic: Generalized weakness Psychiatry: Flat. DATA: Diagnostic tests reviewed for today's visit: Recent Labs 08/12/23 0513 08/11/23 0502 WBC 12.41* 8.92 HB 9.9* 10.2* HCT 30.1* 30.6* MCV 89.3 89.2 PLT 221 201 CREAT 3.17* 5.82* TBILI -- <0.2* AST -- 13 ALT -- 7* ALKPHOS -- 72 CA 9.9 10.0 Assessment/Plan 1) AMS 82-year-old female with history of left renal cell cancer status post surgery followed by local recurrence in the bladder x 2. Her most recent recurrent disease was in the bladder status post TURBT. There was no muscle involvement. She did receive intravesical BCG treatment. Patient now admitted with encephalopathy of unclear etiology. Question of paraneoplastic syndrome. MRI brain and CSF negative. Patient has been started on Solu-Medrol 40 mg every 8. Anti-neuronal antibodies can be requested, however it will take a long time to get the results and often times they are nonspecific. Patient has had some improvement in her mentation. She is more awake and talkative today. Will decrease her Solu-Medrol to 40 mg twice daily. We did discuss whole-body CT scans, however patient's family wishes to hold off at this time as it would not change our management. This is certainly reasonable. Will continue to follow the patient along with you. Discussed with the patient's daughter in detail and all of her questions answered to the best of my ability. Above plan of care reviewed with Dr. Modi and he agrees. SIGNATURE: Pari Perez APRN.CNP PATIENT NAME: Lavinia Durand DATE: August 12, 2023 TIME: 1:02 [facility] NoteHNO ID: [id number] Author: EMA HARRISON MD Service: Hospital Medicine Author Type: Physician Type: Progress Notes Filed: 08/11/2023 15:44 Note Text: INPATIENT PROGRESS NOTE SERVICE DATE: 08/11/2023 SERVICE TIME: 3:37 PM PRIMARY SERVICE: Internal medicine Subjective CHIEF COMPLAINT:confusion INTERVAL HPI: Patient slightly more awake today. She attempted to answer a few questions but got the orientation questions incorrect. Patient did not answer my review of systems questions Current Facility-Administered Medications Medication Dose Route Frequency dextrose 40 % 15 g 15 g ORAL PRN Or glucagon 1 mg injection 1 mg INTRAMUSCULAR PRN Or dextrose 10% iv bolus 12.5 g INTRAVENOUS PRN insulin lispro injection (rapid acting) (ADMElog) SUBCUTANEOUS w MEALS icosapent ethyl 2 g cap(s) (VASCEPA) 2 g ORAL BID w MEALS HYDROcodone 5 mg - acetaminophen 325 mg tablet (NORCO) 1 tablet ORAL q [address] 40 mg tab(s) (PROTONIX) 40 mg ORAL DAILY gabapentin 200 mg cap(s) (NEURONTIN) 200 mg ORAL DAILY folic acid 1 mg tab(s) 1 mg ORAL DAILY levothyroxine 25 mcg tab(s) (SYNTHROID) 25 mcg ORAL BEFORE BREAKFAST DAILY NaCl 0.9% iv flush bag 20 mL INTRAVENOUS PRN ondansetron 4 mg tab(s) (ZOFRAN) 4 mg ORAL q 6 H PRN Or ondansetron (PF) 4 mg injection (ZOFRAN) 4 mg INTRAVENOUS q 6 H PRN acetaminophen 650 mg tab(s) (TYLENOL) 650 mg ORAL q 6 H PRN labetalol 10 mg injection (NORMODYNE) 10 mg INTRAVENOUS q 4 H PRN hydrALAZINE 10 mg injection (APRESOLINE) 10 mg INTRAVENOUS q 4 H PRN niCARdipine iv infusion 40 mg in NaCl (iso-osmotic) 200 mL (CARDENE) 2.5-15 mg/hr INTRAVENOUS CONTINUOUS famotidine 20 mg tab(s) (PEPCID) 20 mg ORAL DAILY carvedilol 25 mg tab(s) (COREG) 25 mg ORAL BID w MEALS NIFEdipine ER 90 mg tab(s) (PROCARDIA XL) 90 mg ORAL BID doxazosin 4 mg tab(s) (CARDURA) 4 mg ORAL BID heparin 5,000 Units injection 5,000 Units SUBCUTANEOUS q 12 H methylPREDNISolone sod succinate(PF) 40 mg injection (SOLU-Medrol) 40 mg INTRAVENOUS q 8 H hydrALAZINE 50 mg tab(s) (APRESOLINE) 50 mg ORAL q 8 H lisinopril 40 mg tab(s) (ZESTRIL) 40 mg ORAL DAILY Objective PHYSICAL EXAM: BP 135/62[Toelrating treatment well no distress noted lines and access secured visible.[ Pulse 84 Temp (Src) 97.6 (Temporal) Resp 23 Ht 5' 0 (1.52m) Wt 98 lb (44.5kg) SpO2 97% BMI 19.14 kg/(m2). O2 Therapy: Room Air, Liters: 5 Physical Exam Performed General: Elderly female, A+Ox1 slight more awake today although still falls asleep quickly, and is in no acute respiratory distress HEENT: Normal cephalic, atraumatic, PERRLA, small lump from fall on back of head Lungs: Clear to auscultation, no wheezing, rales, or rhonchi. Cardiac: Regular rhythm and rate, no murmurs, no rubs. Abdomen: Soft, nontender, nondistended, bowel sounds are active. Extremities: No edema, cyanosis, or clubbing. Skin: No rashes or breakdown. Musculoskeletal: Normal MS exam, moves all extremities Lymphatic: Negative cervical, supra-clavicular, groin lymphadenopathy. Neurologic: Patient did not follow directions for cranial nerve assessment Psychiatry: Confused unable to assess. DATA: Diagnostic tests reviewed for today's visit: Most recent labs Assessment/Plan Encephalopathy-family describes some likely early dementia outpatient with her forgetting things like keys. They do note that seem to be somewhat worse lately with reported falls at rehab. Check vitamin B12 level and ammonia were checked today. Vitamin B12 level quite elevated greater than 4000, ammonia was unremarkable. Neurology has been following. MRI was read as no acute intracranial process. Heme onc following. Patient continues on a trial of steroids after discussion with daughter. Awaiting some rheumatologic tests and tumor markers, RPR + HIV -. ESRD-nephrology's been following for dialysis needs dialysis Friday UTI-urine culture from [facility] was reported to me as no growth per phone discussion with [facility]. patient has been on ceftriaxone which was discontinued, white blood cell count was 8.92 on last check Diabetes-blood glucose level was 212 on last check patient has sliding scale insulin ordered, sporadic oral intake reported Hypertension-blood pressure uncontrolled this morning up to 230's systolic, on last check was 135/62, patient is currently on Coreg, doxazosin, nifedipine. Increasing hydralazine dosing. Patient also on lisinopril. Patient also with prn therapy. Patient getting dialysis today which appears to have improved some readings Medication and Non-Pharmacologic VTE Prophylaxis/Anticoagulants Anticoagulant AND Antiplatelet Medications (From admission, onward) Start Dose Route Frequency Last Action Ordered Stop 08/09/23 1830 heparin 5,000 Units injection 5,000 Units SUBCUTANEOUS EVERY 12 HOURS Given, 08/10 81608/09/23 1822 -- VTE Prophylaxis: on subq heparin SIGNATURE: Ema Lujan (more content not included)...[facility] 08-11-2023 NoteHNO ID: [id number] Author: LISETTE CASON MD Service: Nephrology Author Type: Physician Type: Progress Notes Filed: 08/11/2023 13:16 Note Text: CONSULT PROGRESS NOTE NEPHROLOGY SERVICE SERVICE DATE: 08/11/2023 SERVICE TIME: 1:11 PM Subjective INTERVAL HISTORY: Looks better today. She was started on steroids over the weekend for suspicion of paraneoplastic syndrome [history of left renal cancer with recurrence of the bladder x 2]. She is a bit more alert. MEDICATIONS: Current Facility-Administered Medications Medication Dose Route Frequency dextrose 40 % 15 g 15 g ORAL PRN Or glucagon 1 mg injection 1 mg INTRAMUSCULAR PRN Or dextrose 10% iv bolus 12.5 g INTRAVENOUS PRN insulin lispro injection (rapid acting) (ADMElog) SUBCUTANEOUS w MEALS icosapent ethyl 2 g cap(s) (VASCEPA) 2 g ORAL BID w MEALS HYDROcodone 5 mg - acetaminophen 325 mg tablet (NORCO) 1 tablet ORAL q [address] 40 mg tab(s) (PROTONIX) 40 mg ORAL DAILY gabapentin 200 mg cap(s) (NEURONTIN) 200 mg ORAL DAILY folic acid 1 mg tab(s) 1 mg ORAL DAILY levothyroxine 25 mcg tab(s) (SYNTHROID) 25 mcg ORAL BEFORE BREAKFAST DAILY NaCl 0.9% iv flush bag 20 mL INTRAVENOUS PRN ondansetron 4 mg tab(s) (ZOFRAN) 4 mg ORAL q 6 H PRN Or ondansetron (PF) 4 mg injection (ZOFRAN) 4 mg INTRAVENOUS q 6 H PRN acetaminophen 650 mg tab(s) (TYLENOL) 650 mg ORAL q 6 H PRN labetalol 10 mg injection (NORMODYNE) 10 mg INTRAVENOUS q 4 H PRN hydrALAZINE 10 mg injection (APRESOLINE) 10 mg INTRAVENOUS q 4 H PRN niCARdipine iv infusion 40 mg in NaCl (iso-osmotic) 200 mL (CARDENE) 2.5-15 mg/hr INTRAVENOUS CONTINUOUS famotidine 20 mg tab(s) (PEPCID) 20 mg ORAL DAILY carvedilol 25 mg tab(s) (COREG) 25 mg ORAL BID w MEALS NIFEdipine ER 90 mg tab(s) (PROCARDIA XL) 90 mg ORAL BID doxazosin 4 mg tab(s) (CARDURA) 4 mg ORAL BID heparin 5,000 Units injection 5,000 Units SUBCUTANEOUS q 12 H methylPREDNISolone sod succinate(PF) 40 mg injection (SOLU-Medrol) 40 mg INTRAVENOUS q 8 H hydrALAZINE 20 mg tab(s) (APRESOLINE) 20 mg ORAL q 8 H Objective PHYSICAL EXAM: BP 168/73 Pulse 85 Temp 36.6 ?C (97.8 ?F) (Axillary) Resp 19 Ht 152.4 cm (5') Wt 44.5 kg (98 lb) SpO2 99% BMI 19.14 kg/m? No intake or output data in the 24 hours ending 08/11/23 1311 Patient resting comfortably. Lungs are clear anteriorly bilaterally Cardiovascular with normal S1-S2 without friction rub Abdomen soft and nontender Lower extremities without edema. DATA: Diagnostic tests reviewed for today's visit: Most recent labs and imaging results. Recent Labs 08/11/23 0502 08/10/23 0432 08/09/23 0345 08/08/23 0442 08/07/23 0332 08/06/23 0313 04/09/24 0352 NA 129* 132* 141 133* 137 133* 134* K 5.3* 4.8 4.0 5.0 4.2 5.2* 4.8 CHLOR 93* 95* 101 98 100 98 100 CO2 25 27 30 24 27 24 27 BUN 72* 49* 23 41* 25 55* 44* CREAT 5.82* 4.50* 3.04* 5.22* 3.90* 6.28* 5.01* GLUC 193* 170* 89 131* 127* 97 95 ANION 11 10 10 11 10 11 7 CA 10.0 9.2 9.5 9.5 9.2 9.7 9.9 P -- -- -- -- -- 7.5* -- MG -- -- 2.1 2.0 -- 2.0 1.9 Recent Labs 08/11/23 0502 08/10/23 0432 08/09/23 0345 WBC 8.92 11.64* 7.92 HB 10.2* 9.7* 10.2* HCT 30.6* 29.2* 30.1* PLT 201 187 179 Recent Labs 08/11/23 0502 08/10/23 0432 08/09/23 0831 B12 -- -- >4,000* HB 10.2* < > -- < > = values in this interval not displayed. Recent Labs 08/11/23 0502 08/07/23 0332 08/06/23 0313 ALKPHOS 72 -- -- CA 10.0 < > 9.7 P -- -- 7.5* ALB 2.2* -- -- < > = values in this interval not displayed. No results for input(s): BUNRAT, BUNPR, BUNPO in the last 168 hours. Recent Labs 08/05/23351 HEPSABQ Negative Assessment/Plan 1. ESRD on MWF 2. Hypertensive urgency 3. Generalized weakness and debility 4. Anemia of CKD 5. Encephalopathy (?premorbid dementia v/s paraneopalstic syndrome) 6. H/o left RCC s/p resection with bladder recurrence x2 PLAN 1. Plan for HD today per regular schedule. 2. 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 She is not fluid overloaded. Will attempt 2-3 L UF today. Already on high dose coreg, nifedipine, cardura. Will increase hydralazine to 50 mg Q8. Add lisinopril 40 mg daily. 3. Anemia stable and at goal. 4. Encephalopathy as above. 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 Spinal tap and brain MRI were unremarkable. On solumedrol. Discussed with family at bedside. Thanks SIGNATURE: Lisette Cason MD PATIENT NAME: Lavinia Durand DATE: August 11, 2023 TIME: 1:11 [facility] NoteHNO ID: [id number] Author: LILI MODI MD Service: Hematology/Oncology Author Type: Nurse Practitioner Type: Progress Notes Filed: 08/11/2023 18:05 Note Text: Attestation signed by Lili Modi MD at 08/11/2023 6:05 PM Patient seen and discussed with nurse practitioner. Patient was started on IV Solu-Medrol yesterday. Patient is still very somnolent but more interactive as per family. She had a breakfast this morning. Some improvement. Recommend to continue current dose. Once she is more stable then we will plan to have whole-body CT scans. Will follow Patient closely with you. ONCOLOGY SERVICE PROGRESS NOTE SERVICE DATE: 08/11/2023 SERVICE TIME: 11:36 AM Subjective INTERVAL HPI: Patient resting quietly in bed. She arouses easily. She is still somnolent. Daughter present at bedside. According to her, she does feel like her mother is more awake and interactive. She did eat some of her breakfast this morning. Creatinine 5.8, sodium 129, potassium 5.3. White blood cell count 8.9, hemoglobin 10.2, MCV 89, platelets 201,000. Patient does endorse pain, but is unable to tell me where. PHYSICAL EXAM: Vitals: Maximum temperature (last 24 hours): Temp (24hrs), Av.9 ?C (98.5 ?F), Min:36.4 ?C (97.6 ?F), Max:38 ?C (100.4 ?F) BP 171/82 Pulse 96 Temp 36.6 ?C (97.8 ?F) (Axillary) Resp 19 Ht 152.4 cm (5') Wt 44.5 kg (98 lb) SpO2 99% BMI 19.14 kg/m? General: Chronically ill-appearing. Somnolent. Neck: Supple without palpable lymphadenopathy Lungs: Clear to auscultation, no wheezing, rales, or rhonchi. Cardiac: Regular rhythm and rate, +murmur Abdomen: Soft, nontender, nondistended, bowel sounds are positive, no hepatosplenomegaly palpated. Extremities: No edema, cyanosis, or clubbing. Skin: No rashes or breakdown. Lymphatic: No palpable peripheral lymphadenopathy. Neurologic: Generalized weakness Psychiatry: Flat. DATA: Diagnostic tests reviewed for today's visit: Recent Labs 08/11/23 0502 08/10/23 0432 WBC 8.92 11.64* HB 10.2* 9.7* HCT 30.6* 29.2* MCV 89.2 89.8 PLT 201 187 CREAT 5.82* 4.50* TBILI <0.2* -- AST 13 -- ALT 7* -- ALKPHOS 72 -- CA 10.0 9.2 Assessment/Plan 1) AMS 82-year-old female with history of left renal cell cancer status post surgery followed by local recurrence in the bladder x 2. Her most recent recurrent disease was in the bladder status post TURBT. There was no muscle involvement. She did receive intravesical BCG treatment. Patient now admitted with encephalopathy of unclear etiology. Question of paraneoplastic syndrome. CSF is negative. Patient has been started on Solu-Medrol 40 mg every 8. Anti-neuronal antibodies can be requested, however it will take a long time to get the results and often times they are nonspecific. Whole-body CT scans were also discussed, however patient's family wishes to hold off at this time as it would not change our management. This is certainly reasonable. Will continue to follow the patient along with you. Discussed with the patient's daughter in detail and all of her questions answered to the best of my ability. Above plan of care reviewed with Dr. Modi and he agrees. SIGNATURE: Pari Perez APRN.CNP PATIENT NAME: Lavinia Durand DATE: August 11, 2023 TIME: 11:36 [facility]04-14-2024 NoteHNO ID: [id number] Author: EMA HARRISON MD Service: Hospital Medicine Author Type: Physician Type: Progress Notes Filed: 08/10/2023 15:21 Note Text: INPATIENT PROGRESS NOTE SERVICE DATE: 08/10/2023 SERVICE TIME: 3:05 PM PRIMARY SERVICE: Internal medicine Subjective CHIEF COMPLAINT:confusion INTERVAL HPI: Patient did not answer questions for me. family was present and noted the patient was less interactive today. Patient did not answer my review of systems questions Current Facility-Administered Medications Medication Dose Route Frequency cefTRIAXone 1 g in D5W 100 mL Vial-Bag (ROCEPHIN) 1 g INTRAVENOUS q 24 H dextrose 40 % 15 g 15 g ORAL PRN Or glucagon 1 mg injection 1 mg INTRAMUSCULAR PRN Or dextrose 10% iv bolus 12.5 g INTRAVENOUS PRN insulin lispro injection (rapid acting) (ADMElog) SUBCUTANEOUS w MEALS icosapent ethyl 2 g cap(s) (VASCEPA) 2 g ORAL BID w MEALS HYDROcodone 5 mg - acetaminophen 325 mg tablet (NORCO) 1 tablet ORAL q [address] 40 mg tab(s) (PROTONIX) 40 mg ORAL DAILY gabapentin 200 mg cap(s) (NEURONTIN) 200 mg ORAL DAILY folic acid 1 mg tab(s) 1 mg ORAL DAILY levothyroxine 25 mcg tab(s) (SYNTHROID) 25 mcg ORAL BEFORE BREAKFAST DAILY NaCl 0.9% iv flush bag 20 mL INTRAVENOUS PRN ondansetron 4 mg tab(s) (ZOFRAN) 4 mg ORAL q 6 H PRN Or ondansetron (PF) 4 mg injection (ZOFRAN) 4 mg INTRAVENOUS q 6 H PRN acetaminophen 650 mg tab(s) (TYLENOL) 650 mg ORAL q 6 H PRN labetalol 10 mg injection (NORMODYNE) 10 mg INTRAVENOUS q 4 H PRN hydrALAZINE 10 mg injection (APRESOLINE) 10 mg INTRAVENOUS q 4 H PRN niCARdipine iv infusion 40 mg in NaCl (iso-osmotic) 200 mL (CARDENE) 2.5-15 mg/hr INTRAVENOUS CONTINUOUS famotidine 20 mg tab(s) (PEPCID) 20 mg ORAL DAILY carvedilol 25 mg tab(s) (COREG) 25 mg ORAL BID w MEALS NIFEdipine ER 90 mg tab(s) (PROCARDIA XL) 90 mg ORAL BID doxazosin 4 mg tab(s) (CARDURA) 4 mg ORAL BID hydrALAZINE 10 mg tab(s) (APRESOLINE) 10 mg ORAL q 8 H heparin 5,000 Units injection 5,000 Units SUBCUTANEOUS q 12 H methylPREDNISolone sod succinate(PF) 40 mg injection (SOLU-Medrol) 40 mg INTRAVENOUS q 8 H Objective PHYSICAL EXAM: BP 157/72 Pulse 96 Temp (Src) 96.4 (Axillary) Resp 25 Ht 5' 0 (1.52m) Wt 100 lb 14.4 oz (45.8kg) SpO2 100% BMI 19.71 kg/(m2). O2 Therapy: Room Air Physical Exam Performed General: Elderly female, not answering orientation questions, and is in no acute respiratory distress HEENT: Normal cephalic, atraumatic, PERRLA, small lump from fall on back of head Lungs: Clear to auscultation, no wheezing, rales, or rhonchi. Cardiac: Regular rhythm and rate, no murmurs, no rubs. Abdomen: Soft, nontender, nondistended, bowel sounds are active. Extremities: No edema, cyanosis, or clubbing. Skin: No rashes or breakdown. Musculoskeletal: Normal MS exam, moves all extremities Lymphatic: Negative cervical, supra-clavicular, groin lymphadenopathy. Neurologic: Patient did not follow directions for cranial nerve assessment Psychiatry: Confused not answering questions. DATA: Diagnostic tests reviewed for today's visit: Most recent labs Assessment/Plan Encephalopathy-family describes some likely early dementia outpatient with her forgetting things like keys. They do note that seem to be somewhat worse lately with reported falls at rehab. Check vitamin B12 level and ammonia were checked today. Vitamin B12 level quite elevated greater than 4000, ammonia was unremarkable. Neurology has been following. MRI was read as no acute intracranial process. Heme onc following. Case discussed with Dr. Modi today. Initiating trial of steroids. Awaiting some rheumatologic tests and tumor markers, RPR + HIV -. ESRD-nephrology's been following for dialysis needs dialysis Friday UTI-urine culture from [facility] was reported to me as no growth per phone discussion with [facility]. patient has been on ceftriaxone which will be discontinued, white blood cell count 11.64 on last check Diabetes-blood glucose level was 193 on last check patient has sliding scale insulin ordered, sporadic oral intake reported Hypertension-blood pressure uncontrolled on last check was 157/72, patient is currently on Coreg, doxazosin, nifedipine. Increasing hydralazine dosing. Patient also with prn therapy Medication and Non-Pharmacologic VTE Prophylaxis/Anticoagulants Anticoagulant AND Antiplatelet Medications (From admission, onward) Start Dose Route Frequency Last Action Ordered Stop 08/09/23 1830 heparin 5,000 Units injection 5,000 Units SUBCUTANEOUS EVERY 12 HOURS Given, 08/09 1005 08/09/23 1822 -- VTE Prophylaxis: on subq heparin SIGNATURE: Ema Harrison MD PATIENT NAME: Lavinia Durand DATE: August 09, 2023 TIME: 6:07 [facility]04[facility]2024 NoteHNO ID: [id number] Author: EMA HARRISON MD Service: Hospital Medicine Author Type: Physician Type: Progress Notes Filed: 08/09/2023 18:24 Note Text: INPATIENT PROGRESS NOTE SERVICE DATE: 08/09/2023 SERVICE TIME: 6:07 PM PRIMARY SERVICE: Internal medicine Subjective CHIEF COMPLAINT:confusion INTERVAL HPI: Patient did not answer questions for me. She was more awake when I came back to see her and her family was present although she quickly fell asleep. Patient did not answer my review of systems questions Current Facility-Administered Medications Medication Dose Route Frequency cefTRIAXone 1 g in D5W 100 mL Vial-Bag (ROCEPHIN) 1 g INTRAVENOUS q 24 H dextrose 40 % 15 g 15 g ORAL PRN Or glucagon 1 mg injection 1 mg INTRAMUSCULAR PRN Or dextrose 10% iv bolus 12.5 g INTRAVENOUS PRN insulin lispro injection (rapid acting) (ADMElog) SUBCUTANEOUS w MEALS icosapent ethyl 2 g cap(s) (VASCEPA) 2 g ORAL BID w MEALS HYDROcodone 5 mg - acetaminophen 325 mg tablet (NORCO) 1 tablet ORAL q [address] 40 mg tab(s) (PROTONIX) 40 mg ORAL DAILY gabapentin 200 mg cap(s) (NEURONTIN) 200 mg ORAL DAILY folic acid 1 mg tab(s) 1 mg ORAL DAILY levothyroxine 25 mcg tab(s) (SYNTHROID) 25 mcg ORAL BEFORE BREAKFAST DAILY NaCl 0.9% iv flush bag 20 mL INTRAVENOUS PRN ondansetron 4 mg tab(s) (ZOFRAN) 4 mg ORAL q 6 H PRN Or ondansetron (PF) 4 mg injection (ZOFRAN) 4 mg INTRAVENOUS q 6 H PRN acetaminophen 650 mg tab(s) (TYLENOL) 650 mg ORAL q 6 H PRN labetalol 10 mg injection (NORMODYNE) 10 mg INTRAVENOUS q 4 H PRN hydrALAZINE 10 mg injection (APRESOLINE) 10 mg INTRAVENOUS q 4 H PRN niCARdipine iv infusion 40 mg in NaCl (iso-osmotic) 200 mL (CARDENE) 2.5-15 mg/hr INTRAVENOUS CONTINUOUS famotidine 20 mg tab(s) (PEPCID) 20 mg ORAL DAILY carvedilol 25 mg tab(s) (COREG) 25 mg ORAL BID w MEALS NIFEdipine ER 90 mg tab(s) (PROCARDIA XL) 90 mg ORAL BID doxazosin 4 mg tab(s) (CARDURA) 4 mg ORAL BID hydrALAZINE 10 mg tab(s) (APRESOLINE) 10 mg ORAL q 8 H Objective PHYSICAL EXAM: BP 194/98 Pulse 75 Temp (Src) 98.1 (Axillary) Resp 22 Ht 5' 0 (1.52m) Wt 97 lb 9.6 oz (44.3kg) SpO2 96% BMI 19.06 kg/(m2). O2 Therapy: Room Air Physical Exam Performed General: Elderly female, not answering orientation questions, and is in no acute respiratory distress HEENT: Normal cephalic, atraumatic, PERRLA, small lump from fall on back of head Lungs: Clear to auscultation, no wheezing, rales, or rhonchi. Cardiac: Regular rhythm and rate, no murmurs, no rubs. Abdomen: Soft, nontender, nondistended, bowel sounds are active. Extremities: No edema, cyanosis, or clubbing. Skin: No rashes or breakdown. Musculoskeletal: Normal MS exam, moves all extremities Lymphatic: Negative cervical, supra-clavicular, groin lymphadenopathy. Neurologic: Patient did not follow directions for cranial nerve assessment Psychiatry: Confused not answering questions. DATA: Diagnostic tests reviewed for today's visit: Most recent labs Assessment/Plan Encephalopathy-family describes some likely early dementia outpatient with her forgetting things like keys. They do note that seem to be somewhat worse lately with reported falls at rehab. Check vitamin B12 level and ammonia were checked today. Vitamin B12 level quite elevated greater than 4000, ammonia was unremarkable. Neurology has been following. MRI was read as no acute intracranial process. Consultation being placed to heme-onc due to some concern for paraneoplastic syndrome. Also checking some rheumatologic tests and tumor markers in addition to RPR and HIV ESRD-nephrology's been following for dialysis needs dialysis Friday UTI-will need to follow-up on urine culture from outside hospital, patient currently on ceftriaxone, white blood cell count 7.92 on last check Diabetes-blood glucose level was 120 on last check patient has sliding scale insulin ordered, sporadic oral intake reported Hypertension-blood pressure uncontrolled on last check was 194/98, patient is currently on Coreg, doxazosin, nifedipine. Hydralazine ordered. Patient also with prn therapy After discussion with the family no current plans for transfer to the [facility]. Family would prefer a more conservative workup here. Two of the family Hedy and Diya were available via phone with later in person discussion. Medication and Non-Pharmacologic VTE Prophylaxis/Anticoagulants VTE Prophylaxis: Needs to be revised SIGNATURE: Ema Harrison MD PATIENT NAME: Lavinia Durand DATE: August 09, 2023 TIME: 6:07 [facility]04[facility]2024 NoteHNO ID: [id number] Author: EVERETT POWELL RN Service: Nursing Author Type: Registered Nurse Type: Nursing Progress Note Filed: 08/09/2023 08:35 Note Text: PRN Apresoline given at this time for SBP >180[facility]04[facility] NoteHNO ID: [id number] Author: JACKSON, SHARON, RN Service: ? Author Type: Registered Nurse Type: Progress Notes Filed: 08/08/2023 18:30 Note Text: Treatment run using AVG and 16g needles. No medications given with treatment. Patient tolerates treatment well. 2L net removed.[facility]04-12-2024 NoteHNO ID: [id number] Author: MEGHANN RICHARDSON MD Service: Hospital Medicine Author Type: Physician Type: Progress Notes Filed: 08/08/2023 16:14 Note Text: INPATIENT PROGRESS NOTE SERVICE DATE: 08/08/2023 PRIMARY SERVICE: Hospital Medicine CHIEF COMPLAINT: Weakness Subjective Patient was admitted to the hospital because of change mental status obtunded situation, patient was recently at [facility] because of hypertension urgency, she was admitted with Cardene drip can switch her to oral and discharged right away to the [facility] over there blood pressure kept rising up slowly and today she became totally disoriented and confused she was brought to [facility] she was placed on IV Cardizem drip again, along with oral medication and does better adjusted, she had a baseline end-stage kidney failure hemodialysis nephrology was consulted and he was managing blood pressure with hospitalist service as well. Patient after that was weaned off Cardene drip, however patient did not recover, neurology was consulted recommended MRI of the head which was done results unremarkable, LP was done pending results. Patient still obtunded barely responsive, her family changed CODE STATUS to DNR CCA, there was discussion about hospice care to be carried on with the family. Patient is arousable, poor historian but still encephalopathic, very weak emaciated muscle mass, no fever no chills nausea vomiting, poor historian. Current Facility-Administered Medications Medication Dose Route Frequency cefTRIAXone 1 g in D5W 100 mL Vial-Bag (ROCEPHIN) 1 g INTRAVENOUS q 24 H dextrose 40 % 15 g 15 g ORAL PRN Or glucagon 1 mg injection 1 mg INTRAMUSCULAR PRN Or dextrose 10% iv bolus 12.5 g INTRAVENOUS PRN insulin lispro injection (rapid acting) (ADMElog) SUBCUTANEOUS w MEALS icosapent ethyl 2 g cap(s) (VASCEPA) 2 g ORAL BID w MEALS HYDROcodone 5 mg - acetaminophen 325 mg tablet (NORCO) 1 tablet ORAL q [address] 40 mg tab(s) (PROTONIX) 40 mg ORAL DAILY gabapentin 200 mg cap(s) (NEURONTIN) 200 mg ORAL DAILY folic acid 1 mg tab(s) 1 mg ORAL DAILY levothyroxine 25 mcg tab(s) (SYNTHROID) 25 mcg ORAL BEFORE BREAKFAST DAILY NaCl 0.9% iv flush bag 20 mL INTRAVENOUS PRN ondansetron 4 mg tab(s) (ZOFRAN) 4 mg ORAL q 6 H PRN Or ondansetron (PF) 4 mg injection (ZOFRAN) 4 mg INTRAVENOUS q 6 H PRN acetaminophen 650 mg tab(s) (TYLENOL) 650 mg ORAL q 6 H PRN labetalol 10 mg injection (NORMODYNE) 10 mg INTRAVENOUS q 4 H PRN hydrALAZINE 10 mg injection (APRESOLINE) 10 mg INTRAVENOUS q 4 H PRN niCARdipine iv infusion 40 mg in NaCl (iso-osmotic) 200 mL (CARDENE) 2.5-15 mg/hr INTRAVENOUS CONTINUOUS famotidine 20 mg tab(s) (PEPCID) 20 mg ORAL DAILY carvedilol 25 mg tab(s) (COREG) 25 mg ORAL BID w MEALS NIFEdipine ER 90 mg tab(s) (PROCARDIA XL) 90 mg ORAL BID doxazosin 4 mg tab(s) (CARDURA) 4 mg ORAL BID Objective PHYSICAL EXAM: BP 151/83[Lines and access visualized, secure. Patient awake. Respirations even and unlabored. Call light in reach.[ Pulse 110 Temp (Src) 99.1 (Axillary) Resp 24 Ht 5' 0 (1.52m) Wt 105 lb 12.8 oz (48.0kg) SpO2 97% BMI 20.66 kg/(m2). O2 Therapy: Room Air General: Patient is alert poor historian and is in no acute respiratory distress. Cachectic Lungs: Clear to auscultation, no wheezing, rales, or rhonchi. Cardiac: S1-S2 within normal limits Abdomen: Soft, nontender, nondistended. Extremities: No cyanosis Neurologic: Unable to assess encephalopathic DATA: Recent Labs 08/08/23 1122 08/08/23 0549 08/07/23 2111 08/07/23 1606 08/07/23 1123 PCGLUCOSE 127* 120* 131* 112* 145* LABORATORY TESTS: CBC: Recent Labs 08/08/23 0442 08/07/23 0333 04/10/24 0313 WBC 9.93 9.08 7.47 HB 9.9* 10.4* 10.4* PLT 160 138* 111* MCV 88.5 88.8 87.8 NEUTP 76.3 80.7 71.1 ABSNEUT 7.58* 7.33 5.31 LYMPHP 12.8 9.3 15.5 EODINP 1.7 0.7 3.1 CHEM: Recent Labs 08/08/23 0442 08/07/23 0332 08/06/2331208/05/23 0352 NA 133* 137 133* 134* K 5.0 4.2 5.2* 4.8 CA 9.5 9.2 9.7 9.9 MG 2.0 -- 2.0 1.9 P -- -- 7.5* -- ANION 11 10 11 7 CHLOR 98 100 98 100 CO2 24 27 24 27 GLUC 131* 127* 97 95 BUN 41* 25 55* 44* CREAT 5.22* 3.90* 6.28* 5.01* HEPATIC: Recent Labs 08/05/23 0352 ALT 8* AST 16 TBILI 0.2 ALKPHOS 63 ALB 2.4* TPROT 5.5* URINALYSIS:No results for input(s): SPGR, UBACTERIA, LEUKEST, SSA, UWBC, URBC, UHB, UPROT, UGLUC, UKET in the last 168 hours. Invalid input(s): NITR COAG: Recent Labs 08/05/23 035 INR 1.1 CARDIAC: No results for input(s): CKMB, CKMBP, TROPT, PBNP in the last 168 hours. DATA: Diagnostic tests reviewed for today's visit: Most recent labs and imaging results. Most recent EKG Urine Culture: Positive Micro-30 Days No results found for the last 720 hours. Blood Culture: Positive Micro-30 Days No results found for the last 720 ho (more content not included)...[facility]04-12-2024 NoteHNO ID: [id number] Author: LISETTE CASON MD Service: Nephrology Author Type: Physician Type: Progress Notes Filed: 08/08/2023 14:33 Note Text: INPATIENT HEMODIALYSIS PROGRESS NOTE SERVICE DATE: 08/08/2023 SERVICE TIME: 2.30 pm Subjective Patient seen on dialysis, single evaluation. Orders confirmed. Details per documentation in [facility] Dialysis EMR. Patient tolerating treatment well. System running well, no clotting events. Access without issues. Remains encephalopathic. Objective Labs: Recent Labs 08/08/23 0442 08/07/23 0333 08/07/23 0332 08/06/23 0313 CREAT 5.22* -- 3.90* 6.28* BUN 41* -- 25 55* NA 133* -- 137 133* K 5.0 -- 4.2 5.2* CHLOR 98 -- 100 98 CO2 24 -- 27 24 ANION 11 -- 10 11 GLUC 131* -- 127* 97 CA 9.5 -- 9.2 9.7 P -- -- -- 7.5* MG 2.0 -- -- 2.0 WBC 9.93 9.08 -- 7.47 HB 9.9* 10.4* -- 10.4* HCT 30.0* 31.6* -- 31.6* PLT 160 138* -- 111* Impression/Recommendations 1. ESRD on MWF 2. Hypertensive urgency 3. Generalized weakness and debility 4. Anemia of CKD 5. Encephalopathy (?premorbid dementia) Complete IHD as ordered. 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 No change to IHD Rx. Follow URR, goal 70%. Continue UF as tolerated following hemodynamics. Family may be considering transition to hospice but they are awaiting further work up for encephalopathy to see if there are any reversible cause MRI brain and spinal tap results appear rather benign We will let neuro make further decisions and await final goals of care decisions from family. Thanks Medication and Non-Pharmacologic VTE Prophylaxis/Anticoagulants VTE Prophylaxis: VTE prophylaxis appropriate SIGNATURE: Lisette Cason MD PATIENT NAME: Lavinia Durand DATE: August 08, 2023 TIME: 2:29 [facility] NoteHNO ID: [id number] Author: KYLE PARKER LISW Service: Care Management Author Type: Bed Control Specialist Type: Care Mgt Progress Note Filed: 08/08/2023 13:01 Note Text: Summary: Discharge Planning CLIENT SUPPORT MANAGER continuing to follow for d/c planning needs Pt admitted from [facility] for sudden encephalopathy Pt current with hemodialysis at facility [facility]. active cancer tx. Pt is only a/o x1 at best. Pt's HCPOA is Jame [place] whom confirmed initial plan for pt to return to [facility]. [facility] can accept pt back at anytime, no pre-cert needed. Pending medical clearance, awaiting MRI and Lumbar puncture results. Potential for transition to hospice. Facility is aware of potential for pt to admit to hospice and they had a discussion with the son to inform of contracted hospice agency and room and board rates. D/c plan tbd return snf ECF vs return snf hospice. Pt's son Diya is confirming potential plans. Stated family may transport pt if able, if not will require transport arrangement. Diya aware of potential OOP cost for transport. D/c packet on chart. Will need weekend f/u as able.[facility]04-12-2024 NoteHNO ID: [id number] Author: KAYLENE CAM RT(Sumeet) Service: ? Author Type: Technologist Type: Progress Notes Filed: 08/08/2023 09:25 Note Text: Summary: MRI Radiology Service Progress Note DATE OF SERVICE: August 08, 2023 TIME: 9:23 AM PATIENT IDENTITY VERIFICATION COMPLETED USING TWO (2) STANDARD IDENTIFIERS: Name and Date of confirmed by patient verbally and Name and Date of confirmed by identification band. FALL SCREENING: Has the patient had 2 falls in the last year or 1 fall with injury or currently using an Ambulatory Assistive Device (Walker, Cane, Wheelchair, Crutches, etc.)? Inpatient: Screened on floor PATIENT GENDER DATA: Female. status: : No status: NO. PATIENT RELEVANT IMPLANT DATA REVIEWED: Yes PATIENT PRESENTS WITH AN IMPLANTABLE OR ATTACHED COATING MACHINE HELPER: No ALLERGIES: Reviewed and unchanged CONTRAST ALLERGY: NO. EXAM: MRI - CONTRAST TYPE: GROUP II PERIPHERAL IV DATA: Inpatient - refer to LDA documentation RADIOLOGY DEPARTMENT: MR; Exam(s) Completed: Head: Routine Brain SIGNATURE: Kaylene Cam RT(R) PATIENT NAME: Lavinia Durand DATE: August 08, 2023 TIME: 9:23 [facility]04-11-2024 NoteHNO ID: [id number] Author: LISETTE CASON MD Service: Nephrology Author Type: Physician Type: Progress Notes Filed: 08/07/2023 16:05 Note Text: CONSULT PROGRESS NOTE NEPHROLOGY SERVICE SERVICE DATE: 08/07/2023 SERVICE TIME: 4:03 PM Subjective INTERVAL HISTORY: Remains encephalopathic. She is off Cardene drip at this time. MEDICATIONS: Current Facility-Administered Medications Medication Dose Route Frequency cefTRIAXone 1 g in D5W 100 mL Vial-Bag (ROCEPHIN) 1 g INTRAVENOUS q 24 H dextrose 40 % 15 g 15 g ORAL PRN Or glucagon 1 mg injection 1 mg INTRAMUSCULAR PRN Or dextrose 10% iv bolus 12.5 g INTRAVENOUS PRN insulin lispro injection (rapid acting) (ADMElog) SUBCUTANEOUS w MEALS icosapent ethyl 2 g cap(s) (VASCEPA) 2 g ORAL BID w MEALS HYDROcodone 5 mg - acetaminophen 325 mg tablet (NORCO) 1 tablet ORAL q [address] 40 mg tab(s) (PROTONIX) 40 mg ORAL DAILY doxazosin 2 mg tab(s) (CARDURA) 2 mg ORAL BID gabapentin 200 mg cap(s) (NEURONTIN) 200 mg ORAL DAILY folic acid 1 mg tab(s) 1 mg ORAL DAILY levothyroxine 25 mcg tab(s) (SYNTHROID) 25 mcg ORAL BEFORE BREAKFAST DAILY NaCl 0.9% iv flush bag 20 mL INTRAVENOUS PRN ondansetron 4 mg tab(s) (ZOFRAN) 4 mg ORAL q 6 H PRN Or ondansetron (PF) 4 mg injection (ZOFRAN) 4 mg INTRAVENOUS q 6 H PRN acetaminophen 650 mg tab(s) (TYLENOL) 650 mg ORAL q 6 H PRN labetalol 10 mg injection (NORMODYNE) 10 mg INTRAVENOUS q 4 H PRN hydrALAZINE 10 mg injection (APRESOLINE) 10 mg INTRAVENOUS q 4 H PRN niCARdipine iv infusion 40 mg in NaCl (iso-osmotic) 200 mL (CARDENE) 2.5-15 mg/hr INTRAVENOUS CONTINUOUS famotidine 20 mg tab(s) (PEPCID) 20 mg ORAL DAILY carvedilol 25 mg tab(s) (COREG) 25 mg ORAL BID w MEALS NIFEdipine ER 90 mg tab(s) (PROCARDIA XL) 90 mg ORAL BID Objective PHYSICAL EXAM: BP 160/70 Pulse 80 Temp 36.4 ?C (97.6 ?F) (Temporal) Resp 21 Ht 149.9 cm (4' 11) Wt 45.6 kg (100 lb 8.5 oz) SpO2 97% BMI 20.30 kg/m? Intake/Output Summary (Last 24 hours) at 08/07/2023 1603 Last data filed at 08/07/2023 1323 Gross per 24 hour Intake 1038 ml Output 0 ml Net 1038 ml Patient resting in bed. Nonconversant Lungs are clear anteriorly bilaterally Cardiovascular with normal S1-S2 without friction rub Abdomen soft and nontender Lower extremities without edema. DATA: Diagnostic tests reviewed for today's visit: Most recent labs and imaging results. Recent Labs 08/07/23 0332 08/06/23 0313 08/05/23 0352 NA 137 133* 134* K 4.2 5.2* 4.8 CHLOR 100 98 100 CO2 27 24 27 BUN 25 55* 44* CREAT 3.90* 6.28* 5.01* GLUC 127* 97 95 ANION 10 11 7 CA 9.2 9.7 9.9 P -- 7.5* -- MG -- 2.0 1.9 Recent Labs 08/07/2333208/06/2331208/05/23351 WBC 9.08 7.47 7.46 HB 10.4* 10.4* 10.2* HCT 31.6* 31.6* 30.5* PLT 138* 111* 98* Recent Labs 08/07/23332 HB 10.4* Recent Labs 08/07/232 08/06/2331208/05/23351 ALKPHOS -- -- 63 CA 9.2 9.7 9.9 P -- 7.5* -- ALB -- -- 2.4* No results for input(s): BUNRAT, BUNPR, BUNPO in the last 168 hours. Recent Labs 08/05/23351 HEPSABQ Negative Assessment/Plan 1. ESRD on MWF 2. Hypertensive urgency 3. Generalized weakness and debility 4. Anemia of CKD PLAN 1. Had discussion with both rhzskmnr-ht-mza and son on the phone today. They have been discussing transitioning to hospice care versus continuing investigation for encephalopathy. The last decision from them is to pursue MRI brain and spinal tap. If no reversible cause identified, they are leaning towards transition to DNR CC. 2. In the meantime, we will plan on performing dialysis tomorrow. Blood pressure slightly improved today. Continue antihypertensive. Will perform UF on HD to help with blood pressure. 3. No evidence of renal artery stenosis on duplex. Increase Cardura to 4 mg twice daily. Thank you SIGNATURE: Lisette Cason MD PATIENT NAME: Lavinia Durand DATE: August 07, 2023 TIME: 4:03 [facility]04-11-2024 NoteHNO ID: [id number] Author: SHANNAN GUTIERREZ RN Service: Nursing Author Type: Registered Nurse Type: Nursing Progress Note Filed: 08/07/2023 13:37 Note Text: Per Dr Richardson, pt not to have MRI or lumbar puncture. Requested for procedures to be canceled.[facility]04-11-2024 NoteHNO ID: [id number] Author: LAZARO LEONG Tech Service: ? Author Type: Technologist Type: Progress Notes Filed: 08/07/2023 11:59 Note Text: Summary: MRI TRANSPORTATION RADIOLOGY SERVICE PROGRESS NOTE DATE OF SERVICE: August 07, 2023 TIME OF SERVICE:1155 EVENT: TRANSPORTATION TO MRI CANCELED ADDITIONAL EVENT DETAILS: COMMUNICATION TO MRI STAFF VIA RADIOLOGY DEPT: RN CANCELED TRANSPORT TO MRI BY ACCIDENT FOR HER 1215 SLOT. PATIENT WILL BE RE-ENTERED BACK IN TO TRANSPORT BY MRI TECHS WHEN SUITABLE FOR MRI DEPT. COMMUNICATION WAS GIVEN TO NOT SEND TO RADIOLOGY FOR LUMBAR PUNCTURE BY RADIOLOGY. SIGNATURE: RT Donna(R)(CT) PATIENT NAME: Lavinia Durand DATE: August 07, 2023 TIME: 11:55 AM PAGER/CONTACT #:[facility]04-11-2024 NoteHNO ID: [id number] Author: MEGHANN RICHARDSON MD Service: Hospital Medicine Author Type: Physician Type: Progress Notes Filed: 08/07/2023 11:52 Note Text: INPATIENT PROGRESS NOTE SERVICE DATE: 08/07/2023 PRIMARY SERVICE: Hospital Medicine CHIEF COMPLAINT: Weakness Subjective Patient is more awake, poor historian but still encephalopathic, very weak emaciated muscle mass, no fever no chills nausea vomiting, poor historian. Current Facility-Administered Medications Medication Dose Route Frequency cefTRIAXone 1 g in D5W 100 mL Vial-Bag (ROCEPHIN) 1 g INTRAVENOUS q 24 H dextrose 40 % 15 g 15 g ORAL PRN Or glucagon 1 mg injection 1 mg INTRAMUSCULAR PRN Or dextrose 10% iv bolus 12.5 g INTRAVENOUS PRN insulin lispro injection (rapid acting) (ADMElog) SUBCUTANEOUS w MEALS icosapent ethyl 2 g cap(s) (VASCEPA) 2 g ORAL BID w MEALS HYDROcodone 5 mg - acetaminophen 325 mg tablet (NORCO) 1 tablet ORAL q [address] 40 mg tab(s) (PROTONIX) 40 mg ORAL DAILY doxazosin 2 mg tab(s) (CARDURA) 2 mg ORAL BID gabapentin 200 mg cap(s) (NEURONTIN) 200 mg ORAL DAILY folic acid 1 mg tab(s) 1 mg ORAL DAILY levothyroxine 25 mcg tab(s) (SYNTHROID) 25 mcg ORAL BEFORE BREAKFAST DAILY NaCl 0.9% iv flush bag 20 mL INTRAVENOUS PRN ondansetron 4 mg tab(s) (ZOFRAN) 4 mg ORAL q 6 H PRN Or ondansetron (PF) 4 mg injection (ZOFRAN) 4 mg INTRAVENOUS q 6 H PRN acetaminophen 650 mg tab(s) (TYLENOL) 650 mg ORAL q 6 H PRN labetalol 10 mg injection (NORMODYNE) 10 mg INTRAVENOUS q 4 H PRN hydrALAZINE 10 mg injection (APRESOLINE) 10 mg INTRAVENOUS q 4 H PRN niCARdipine iv infusion 40 mg in NaCl (iso-osmotic) 200 mL (CARDENE) 2.5-15 mg/hr INTRAVENOUS CONTINUOUS famotidine 20 mg tab(s) (PEPCID) 20 mg ORAL DAILY carvedilol 25 mg tab(s) (COREG) 25 mg ORAL BID w MEALS NIFEdipine ER 90 mg tab(s) (PROCARDIA XL) 90 mg ORAL BID Objective PHYSICAL EXAM: BP 152/67 Pulse 79 Temp (Src) 97.6 (Temporal) Resp 23 Ht 4' 11 (1.50m) Wt 100 lb 8.5 oz (45.6kg) SpO2 97% BMI 20.29 kg/(m2). O2 Therapy: Room Air General: Patient is alert poor historian and is in no acute respiratory distress. Cachectic Lungs: Clear to auscultation, no wheezing, rales, or rhonchi. Cardiac: S1-S2 within normal limits Abdomen: Soft, nontender, nondistended. Extremities: No cyanosis Neurologic: Unable to assess encephalopathic DATA: Recent Labs 08/07/23 0611 08/06/23 2252 08/06/23 1613 08/06/23 1122 08/05/23 1606 PCGLUCOSE 134* 164* 139* 164* 97 LABORATORY TESTS: CBC: Recent Labs 08/07/23 0333 08/06/23 0313 08/05/23 0352 WBC 9.08 7.47 7.46 HB 10.4* 10.4* 10.2* PLT 138* 111* 98* MCV 88.8 87.8 87.6 NEUTP 80.7 71.1 -- ABSNEUT 7.33 5.31 -- LYMPHP 9.3 15.5 -- EODINP 0.7 3.1 -- CHEM: Recent Labs 08/07/23 03308/06/23 03108/05/23 0352 NA 137 133* 134* K 4.2 5.2* 4.8 CA 9.2 9.7 9.9 MG -- 2.0 1.9 P -- 7.5* -- ANION 10 11 7 CHLOR 100 98 100 CO2 27 24 27 GLUC 127* 97 95 BUN 25 55* 44* CREAT 3.90* 6.28* 5.01* HEPATIC: Recent Labs 08/05/23351 ALT 8* AST 16 TBILI 0.2 ALKPHOS 63 ALB 2.4* TPROT 5.5* URINALYSIS:No results for input(s): SPGR, UBACTERIA, LEUKEST, SSA, UWBC, URBC, UHB, UPROT, UGLUC, UKET in the last 168 hours. Invalid input(s): NITR COAG: Recent Labs 08/05/23351 INR 1.1 CARDIAC: No results for input(s): CKMB, CKMBP, TROPT, PBNP in the last 168 hours. DATA: Diagnostic tests reviewed for today's visit: Most recent labs and imaging results. Most recent EKG Urine Culture: Positive Micro-30 Days No results found for the last 720 hours. Blood Culture: Positive Micro-30 Days No results found for the last 720 hours. 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 Patient does not have any focal neurological deficit. *Blood pressure uncontrolled, patient is declining taking her pills, I discussed the case with her olenrrzz-sd-xrv Marni on the phone, at this time she mentioned that she was recently at [facility] with IV Cardene drip then switched her to oral pills however it was not giving enough time to address if the oral pills enough to address and control her blood pressure problem. Patient was after that kyle (more content not included)...[facility]04-10-2024 NoteHNO ID: [id number] Author: MEGHANN RICHARDSON MD Service: Hospital Medicine Author Type: Physician Type: Progress Notes Filed: 08/06/2023 15:09 Note Text: INPATIENT PROGRESS NOTE SERVICE DATE: 08/06/2023 PRIMARY SERVICE: Hospital Medicine CHIEF COMPLAINT: Weakness Subjective Patient is encephalopathic, poor historian, very weak emaciated muscle mass, no fever no chills nausea vomiting, poor historian. Current Facility-Administered Medications Medication Dose Route Frequency cefTRIAXone 1 g in D5W 100 mL Vial-Bag (ROCEPHIN) 1 g INTRAVENOUS q 24 H dextrose 40 % 15 g 15 g ORAL PRN Or glucagon 1 mg injection 1 mg INTRAMUSCULAR PRN Or dextrose 10% iv bolus 12.5 g INTRAVENOUS PRN insulin lispro injection (rapid acting) (ADMElog) SUBCUTANEOUS w MEALS icosapent ethyl 2 g cap(s) (VASCEPA) 2 g ORAL BID w MEALS HYDROcodone 5 mg - acetaminophen 325 mg tablet (NORCO) 1 tablet ORAL q [address] 40 mg tab(s) (PROTONIX) 40 mg ORAL DAILY doxazosin 2 mg tab(s) (CARDURA) 2 mg ORAL BID gabapentin 200 mg cap(s) (NEURONTIN) 200 mg ORAL DAILY folic acid 1 mg tab(s) 1 mg ORAL DAILY levothyroxine 25 mcg tab(s) (SYNTHROID) 25 mcg ORAL BEFORE BREAKFAST DAILY NaCl 0.9% iv flush bag 20 mL INTRAVENOUS PRN ondansetron 4 mg tab(s) (ZOFRAN) 4 mg ORAL q 6 H PRN Or ondansetron (PF) 4 mg injection (ZOFRAN) 4 mg INTRAVENOUS q 6 H PRN acetaminophen 650 mg tab(s) (TYLENOL) 650 mg ORAL q 6 H PRN labetalol 10 mg injection (NORMODYNE) 10 mg INTRAVENOUS q 4 H PRN hydrALAZINE 10 mg injection (APRESOLINE) 10 mg INTRAVENOUS q 4 H PRN niCARdipine iv infusion 40 mg in NaCl (iso-osmotic) 200 mL (CARDENE) 2.5-15 mg/hr INTRAVENOUS CONTINUOUS famotidine 20 mg tab(s) (PEPCID) 20 mg ORAL DAILY carvedilol 25 mg tab(s) (COREG) 25 mg ORAL BID w MEALS NIFEdipine ER 90 mg tab(s) (PROCARDIA XL) 90 mg ORAL BID Objective PHYSICAL EXAM: BP 150/77[Tolerating, lines and access visible, call light in reach[ Pulse 104 Temp (Src) 98.2 (Oral) Resp 16 Ht 4' 11 (1.50m) Wt 103 lb 9.9 oz (47.0kg) SpO2 100% BMI 20.92 kg/(m2). O2 Therapy: Nasal Cannula, Liters: 5 General: Patient is alert poor historian and is in no acute respiratory distress. Cachectic Lungs: Clear to auscultation, no wheezing, rales, or rhonchi. Cardiac: S1-S2 within normal limits Abdomen: Soft, nontender, nondistended. Extremities: No cyanosis Neurologic: Unable to assess encephalopathic DATA: Recent Labs 08/06/23 1122 08/05/23 1606 08/05/23 1113 08/05/23 0625 08/04/23 2334 PCGLUCOSE 164* 97 215* 108* 103* LABORATORY TESTS: CBC: Recent Labs 08/06/23 0313 08/05/23 0352 WBC 7.47 7.46 HB 10.4* 10.2* PLT 111* 98* MCV 87.8 87.6 NEUTP 71.1 -- ABSNEUT 5.31 -- LYMPHP 15.5 -- EODINP 3.1 -- CHEM: Recent Labs 08/06/23 0313 08/05/23 035 NA 133* 134* K 5.2* 4.8 CA 9.7 9.9 MG 2.0 1.9 P 7.5* -- ANION 11 7 CHLOR 98 100 CO2 24 27 GLUC 97 95 BUN 55* 44* CREAT 6.28* 5.01* HEPATIC: Recent Labs 08/05/23351 ALT 8* AST 16 TBILI 0.2 ALKPHOS 63 ALB 2.4* TPROT 5.5* URINALYSIS:No results for input(s): SPGR, UBACTERIA, LEUKEST, SSA, UWBC, URBC, UHB, UPROT, UGLUC, UKET in the last 168 hours. Invalid input(s): NITR COAG: Recent Labs 08/05/23351 INR 1.1 CARDIAC: No results for input(s): CKMB, CKMBP, TROPT, PBNP in the last 168 hours. DATA: Diagnostic tests reviewed for today's visit: Most recent labs and imaging results. Most recent EKG Urine Culture: Positive Micro-30 Days No results found for the last 720 hours. Blood Culture: Positive Micro-30 Days No results found for the last 720 hours. Medication and Non-Pharmacologic VTE Prophylaxis/Anticoagulants VTE Prophylaxis: VTE prophylaxis appropriate Assesment: Generalized weakness and debility/frequent falls UTI End-stage kidney failure on hemodialysis Chronic anemia secondary to chronic kidney disease Acute metabolic encephalopathy Diabetes mellitus type 2 Hypertension Hypothyroidism GERD Cachexia History of bladder cancer Severe protein calorie mentation Plan *Patient had neuroimaging done outside [facility] supposedly unremarkable I did not see the report, neurology consultation note was reviewed, recommended MRI because patient had a history of bladder cancer that put her into hypercoagulable status. Patient does not have any focal neurological deficit. *Blood pressure uncontrolled, patient is declining taking her pills, I discussed the case with her [id number]-ov-tcw Marni on the phone, at this time she mentioned that she was recently at [facility] with IV Cardene drip then switched her to oral pills however it was not giving enough time to address if the oral pills enough to address and control her blood pressure problem. Patient was after that transfer to the SNF where she was taking her pills however bloo (more content not included)...[facility]04-10-2024 NoteHNO ID: [id number] Author: MEGHANN RICHARDSON MD Service: Hospital Medicine Author Type: Physician Type: Progress Notes Filed: 08/06/2023 14:34 Note Text: Documentation Query Based on your medical judgment of the clinical indicators outlined below, please clarify the condition: (Please type X next to your response and sign) 08/04/23 H AND P ... Chief complaint AMS... PMHx of DM, HF... HTN... Upper tract urothelial cancer... at outside ER... Platelets 95... Labs: 08/05/23 03:52 08/06/23 03:13 Platelet Count 98 111 Please clarify the diagnosis associated with the following clinical indicators such as: x Thrombocytopenia Other, please specify [facility]04-10-2024 NoteHNO ID: [id number] Author: LISETTE CASON MD Service: Nephrology Author Type: Physician Type: Progress Notes Filed: 08/06/2023 10:51 Note Text: CONSULT PROGRESS NOTE NEPHROLOGY SERVICE SERVICE DATE: 08/06/2023 SERVICE TIME: 10:49 AM Subjective INTERVAL HISTORY: To receive HD today. Still on cardene drip. Patient lethargic. MEDICATIONS: Current Facility-Administered Medications Medication Dose Route Frequency cefTRIAXone 1 g in D5W 100 mL Vial-Bag (ROCEPHIN) 1 g INTRAVENOUS q 24 H dextrose 40 % 15 g 15 g ORAL PRN Or glucagon 1 mg injection 1 mg INTRAMUSCULAR PRN Or dextrose 10% iv bolus 12.5 g INTRAVENOUS PRN insulin lispro injection (rapid acting) (ADMElog) SUBCUTANEOUS w MEALS icosapent ethyl 2 g cap(s) (VASCEPA) 2 g ORAL BID w MEALS HYDROcodone 5 mg - acetaminophen 325 mg tablet (NORCO) 1 tablet ORAL q [address] 40 mg tab(s) (PROTONIX) 40 mg ORAL DAILY doxazosin 2 mg tab(s) (CARDURA) 2 mg ORAL BID gabapentin 200 mg cap(s) (NEURONTIN) 200 mg ORAL DAILY folic acid 1 mg tab(s) 1 mg ORAL DAILY levothyroxine 25 mcg tab(s) (SYNTHROID) 25 mcg ORAL BEFORE BREAKFAST DAILY NaCl 0.9% iv flush bag 20 mL INTRAVENOUS PRN ondansetron 4 mg tab(s) (ZOFRAN) 4 mg ORAL q 6 H PRN Or ondansetron (PF) 4 mg injection (ZOFRAN) 4 mg INTRAVENOUS q 6 H PRN acetaminophen 650 mg tab(s) (TYLENOL) 650 mg ORAL q 6 H PRN labetalol 10 mg injection (NORMODYNE) 10 mg INTRAVENOUS q 4 H PRN hydrALAZINE 10 mg injection (APRESOLINE) 10 mg INTRAVENOUS q 4 H PRN iv contrast (radiology procedure) INTRAVENOUS DIRECTED PRN niCARdipine iv infusion 40 mg in NaCl (iso-osmotic) 200 mL (CARDENE) 2.5-15 mg/hr INTRAVENOUS CONTINUOUS famotidine 20 mg tab(s) (PEPCID) 20 mg ORAL DAILY carvedilol 25 mg tab(s) (COREG) 25 mg ORAL BID w MEALS NIFEdipine ER 90 mg tab(s) (PROCARDIA XL) 90 mg ORAL BID Objective PHYSICAL EXAM: BP 158/74 Pulse 83 Temp 37.2 ?C (98.9 ?F) (Oral) Resp 20 Ht 149.9 cm (4' 11) Wt 47 kg (103 lb 9.9 oz) SpO2 100% BMI 20.93 kg/m? Intake/Output Summary (Last 24 hours) at 08/06/2023 1049 Last data filed at 08/06/2023 0645 Gross per 24 hour Intake 272 ml Output 100 ml Net 172 ml Patient resting comfortably. Lungs are clear anteriorly bilaterally Cardiovascular with normal S1-S2 without friction rub Abdomen soft and nontender Lower extremities without edema. DATA: Diagnostic tests reviewed for today's visit: Most recent labs and imaging results. Recent Labs 08/06/2331208/05/23351 NA 133* 134* K 5.2* 4.8 CHLOR 98 100 CO2 24 27 BUN 55* 44* CREAT 6.28* 5.01* GLUC 97 95 ANION 11 7 CA 9.7 9.9 P 7.5* -- MG 2.0 1.9 Recent Labs 08/06/2331208/05/23351 WBC 7.47 7.46 HB 10.4* 10.2* HCT 31.6* 30.5* PLT 111* 98* Recent Labs 08/06/23312 HB 10.4* Recent Labs 08/06/23312 07/09/24 0352 ALKPHOS -- 63 CA 9.7 9.9 P 7.5* -- ALB -- 2.4* No results for input(s): BUNRAT, BUNPR, BUNPO in the last 168 hours. Recent Labs 08/05/23 0352 HEPSABQ Negative Assessment/Plan 1. ESRD on MWF 2. Hypertensive urgency 3. Generalized weakness and debility 4. Anemia of CKD PLAN 1. Plan for HD today. UF goal 2 L. 2. Remains hypertensive. Increase coreg to 25 mg BID, Nifedipine to 90 mg BID. Continue doxazosin. 3. Renal artery duplex negative for stenosis on left side. There is right sided nephroureterectomy. 4. Follow labs. 5. Consider brain imaging for encephalopathy Thanks SIGNATURE: Lisette Cason MD PATIENT NAME: Lavinia Durand DATE: August 06, 2023 TIME: 10:49 [facility]04-09-2024 NoteHNO ID: [id number] Author: KYLE PARKER LISW Service: Care Management Author Type: Bed Control Specialist Type: Care Mgt Progress Note Filed: 08/05/2023 15:59 Note Text: Summary: Discharge Planning Chart reviewed. Will need assessment as able Pt admitted from [facility] for AMS, current with hemodialysis, days not verified. Also active cancer tx. Pt is only a/o x1 at best per staff. Will need family and HCPOA verified. D/c plan tbd. Referral placed to [facility] to determine LOC at facility and if she can return. Will need cm follow up as able.[facility] 08-05-2023 Discharge summary Author Sung Viveros [facility] August 05, 2023 3:45pm Note Date/Time August 05, 2023 3:45 pm [facility] Physical Therapy [facility] [address] [place] [address] / REHABILITATION SERVICES DISCHARGE SUMMARY MR#: [id number] Acct: [id number] Name: LAVINIA DURAND Rep #: [id number] : 1940 82 From: JESSICA Herzog DPT, RACHAEL Referring Dr.: Dr. Osmani Morgan MD Status : REG RCR Insurance: MEDICARE PART A B MEDICARE SUPPLEMENT PLAN Patient Information Patient Information: LAVINIA DURAND was seen in my office for initial evaluation on 06/10/23. The following Plan of Care was established for this patient: POC Established Initial Frequency: 1-2x /Week Initial Duration: 2-4 Weeks Anticipated Interventions Patient/Client Instruction: Educate patient on: Condition For the Purpose of:: To increase tolerance to activity/condition/position, To improve ability of physical actions for home/community/work/leisure and To improve gait and locomotor functions For the Purpose of:: To increase tolerance to activity/condition/position, To improve ability of physical actions for home/community/work/leisure and To improve gait and locomotor functions Last Seen Last Seen: This patient was last seen in our office 06/17/23. Pertinent comments regardingtheir Physical therapy will appear below: Pt seen 2 visits and was not improving and was sent back to doctor and will not be returning to PT. At this point I will be discontinuing this patient from physical therapy. I would be happy to see this patient again in the future if found appropriate by the physician. Thank you! Sung Viveros DPT, JESSICA, CSCS Balance/Gait/Functional tests Balance/Special Test Scores Functional Gait Assessment Score: 19 % Disability: 36.6700 Dizziness Score: 86 <Electronically signed by Sung Viveros DPT, JESSICA, CSCS> 08/05/23 2368 CC: Dr. Osmani Morgan MD ~ EBG Signed [facility] Work Phone: [phone] NoteHNO ID: [id number] Author: FARIDA BASHIR RN Service: Nursing Author Type: Registered Nurse Type: Progress Notes Filed: 08/05/2023 13:43 Note Text: Patient transferred to CVU-12 at this time per protocol. All belongings and medications sent with patient and given to assuming RNNatalie. IV that placed at [place] ED now charted on avatar.[facility]04-09-2024 NoteHNO ID: [id number] Author: FARIDA BASHIR RN Service: Nursing Author Type: Registered Nurse Type: Progress Notes Filed: 08/05/2023 11:45 Note Text: Contacted daughter in law to complete MRI screening form. Faxed.[facility]04-09-2024 NoteHNO ID: [id number] Author: MEGHANN RICHARDSON MD Service: Hospital Medicine Author Type: Physician Type: Progress Notes Filed: 08/05/2023 12:16 Note Text: INPATIENT PROGRESS NOTE SERVICE DATE: 08/05/2023 PRIMARY SERVICE: Hospital Medicine CHIEF COMPLAINT: Weakness Subjective Patient very weak emaciated muscle mass, no fever no chills nausea vomiting, poor historian, blood pressure is uncontrolled Current Facility-Administered Medications Medication Dose Route Frequency cefTRIAXone 1 g in D5W 100 mL Vial-Bag (ROCEPHIN) 1 g INTRAVENOUS q 24 H dextrose 40 % 15 g 15 g ORAL PRN Or glucagon 1 mg injection 1 mg INTRAMUSCULAR PRN Or dextrose 10% iv bolus 12.5 g INTRAVENOUS PRN insulin lispro injection (rapid acting) (ADMElog) SUBCUTANEOUS w MEALS icosapent ethyl 2 g cap(s) (VASCEPA) 2 g ORAL BID w MEALS [START ON 08/07/2023] furosemide (LASIX) tab(s) 60 mg 60 mg ORAL q JOCELYN HYDROcodone 5 mg - acetaminophen 325 mg tablet (NORCO) 1 tablet ORAL q [address] 40 mg tab(s) (PROTONIX) 40 mg ORAL DAILY doxazosin 2 mg tab(s) (CARDURA) 2 mg ORAL BID carvedilol 12.5 mg tab(s) (COREG) 12.5 mg ORAL BID w MEALS famotidine 40 mg tab(s) (PEPCID) 40 mg ORAL DAILY gabapentin 200 mg cap(s) (NEURONTIN) 200 mg ORAL DAILY folic acid 1 mg tab(s) 1 mg ORAL DAILY levothyroxine 25 mcg tab(s) (SYNTHROID) 25 mcg ORAL BEFORE BREAKFAST DAILY NaCl 0.9% iv flush bag 20 mL INTRAVENOUS PRN ondansetron 4 mg tab(s) (ZOFRAN) 4 mg ORAL q 6 H PRN Or ondansetron (PF) 4 mg injection (ZOFRAN) 4 mg INTRAVENOUS q 6 H PRN acetaminophen 650 mg tab(s) (TYLENOL) 650 mg ORAL q 6 H PRN labetalol 10 mg injection (NORMODYNE) 10 mg INTRAVENOUS q 4 H PRN hydrALAZINE 10 mg injection (APRESOLINE) 10 mg INTRAVENOUS q 4 H PRN NIFEdipine ER 60 mg tab(S) (PROCARDIA XL) 60 mg ORAL BID iv contrast (radiology procedure) INTRAVENOUS DIRECTED PRN Objective PHYSICAL EXAM: BP 244/86 Pulse 72 Temp (Src) 98 (Oral) Resp 18 Ht 4' 11 (1.50m) Wt 105 lb 14.4 oz (48.0kg) SpO2 97% BMI 21.38 kg/(m2). O2 Therapy: Room Air General: Patient is alert and is in no acute respiratory distress. Cachectic Lungs: Clear to auscultation, no wheezing, rales, or rhonchi. Cardiac: S1-S2 within normal limits Abdomen: Soft, nontender, nondistended. Extremities: No cyanosis Neurologic: Cranial nerves from II-XII intact grossly. DATA: Recent Labs 08/05/23 1113 08/05/23 0625 08/04/23 2334 PCGLUCOSE 215* 108* 103* LABORATORY TESTS: CBC: Recent Labs 08/05/23 0352 WBC 7.46 HB 10.2* PLT 98* MCV 87.6 CHEM: Recent Labs 08/05/23 0352 NA 134* K 4.8 CA 9.9 MG 1.9 ANION 7 CHLOR 100 CO2 27 GLUC 95 BUN 44* CREAT 5.01* HEPATIC: Recent Labs 08/05/23 0352 ALT 8* AST 16 TBILI 0.2 ALKPHOS 63 ALB 2.4* TPROT 5.5* URINALYSIS:No results for input(s): SPGR, UBACTERIA, LEUKEST, SSA, UWBC, URBC, UHB, UPROT, UGLUC, UKET in the last 168 hours. Invalid input(s): NITR COAG: Recent Labs 08/05/23 0352 INR 1.1 CARDIAC: No results for input(s): CKMB, CKMBP, TROPT, PBNP in the last 168 hours. DATA: Diagnostic tests reviewed for today's visit: Most recent labs and imaging results. Most recent EKG Urine Culture: Positive Micro-30 Days No results found for the last 720 hours. Blood Culture: Positive Micro-30 Days No results found for the last 720 hours. Medication and Non-Pharmacologic VTE Prophylaxis/Anticoagulants VTE Prophylaxis: VTE prophylaxis appropriate Assesment: Generalized weakness and debility/frequent falls UTI End-stage kidney failure on hemodialysis Chronic anemia secondary to chronic kidney disease Acute metabolic encephalopathy Diabetes mellitus type 2 Hypertension Hypothyroidism GERD Cachexia History of bladder cancer Plan *Patient had neuroimaging done outside [facility] supposedly unremarkable I did not see the report, neurology consultation note was reviewed, recommended MRI because patient had a history of bladder cancer that put her into hypercoagulable status. Patient does not have any focal neurological deficit. *Blood pressure uncontrolled, patient is declining taking her pills, I discussed the case with her qqivnykg-gm-kux Marni on the phone, at this time she mentioned that she was recently at [facility] with IV Cardene drip then switched her to oral pills however it was not giving enough time to address if the oral pills enough to address and control her blood pressure problem. Patient was after that transfer to the SNF where she was taking her pills however blood pressure was trending up and she was declining mental mao, patient currently blood pressure is above 200, I agreed with her lggamfvn-sw-khy Marni who is remotely piloted vehicle controller to start IV Cardene drip to keep systolic blood pressure below 160 systolically, transfer patient to CCU, will have eventually an (more content not included)...[facility]04-08-2024 Discharge summary Author Batool Caraballo [facility] August 04, 2023 5:18pm Note Date/Time August 04, 2023 1:07 pm [facility] Medical Records Department [address] [place] [address] Emergency Department Summary 08/04/23 MR#: [id number] Acct: [id number] Name: LAVINIA DURAND Rep #:[id number] : 1940 82 From: Batool rGeenfield PCP: Dr. Osmani Morgan MD Status:R EG ER Location: ED HPI HPI - Fall History of Present Illness Chief Complaint: Fall Informant: patient, family and EMS Narrative Narrative: Patient is an 82-year-old female with history of type 2 diabetes mellitus, incisional disease on hemodialysis (last had dialysis today), cardiomyopathy, hypertension and recent admission/discharge for altered mental status and urinary tract infection presenting for evaluation after fall and progressively worsening confusion. Per EMS reports patient was found on the ground at [facility]. She had an unwitnessed fall. She did sustain injury to her scalp from this fall. Patient is unable to tell if she has any pain or contribute to HPI. I spoke with her cjzsbgbr-eu-edx on the phone who states up until couple weeks ago patient was cooking, managing finances and living at home independently. 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 She is not sure if this is associated with her uremia, recent UTI or something else. She would like her evaluated further for this. Patient apparently did have hemodialysis this morning. Her cutting machine offbearer currently is Dr. Ballesteros. She also notes that the family did take her home yesterday and she was very weak. She was frail sin at time of ce discharge but has rapidly progressed since her discharge on 07/21/2023 per [id number]-ui-jdg. Discharge summary from 07/21/2023 independently reviewed which shows that patientwas admitted on 07/15 through 07/20 for acute metabolic encephalopathy secondary to hypertensive emergency as well as urinary tract infection however urine culture was ultimately negative. Patient had been treated with 5-day course of Rocephin. [facility] Medical History Anemia Arthritis Bilateral lower extremity edema Cancer Cardiomyopathy CKD (chronic kidney disease) stage 5, GFR less than 15 ml/min ESRD on dialysis Gastric reflux Glaucoma Heart failure Heart murmur Hx of fracture of wrist Hyperlipidemia Hypertension Hypothyroidism Kidney failure Lumbar spinal stenosis Macular degeneration Mitral regurgitation Osteoporosis Rheumatoid arthritis Shortness of breath on exertion Sjogren syndrome with inflammatory arthritis Thyroid disease Type 2 diabetes mellitus Vertigo Home Medications ascorbic acid (vitamin C) 1,000 mg tablet,extended release (Vitamin C ER) 1,000 mg PO DAILY supplement 06/13/22 [History Last Taken Unknown] bimatoprost 0.01 % eye drops (Lumigan) 1 drp EACH EYE QHS eye drop 06/13/22 [History Last Taken Unknown] carvedilol 12.5 mg tablet 12.5 mg PO BID BLOOD PRESSURE 06/13/22 [History Last Taken 08/22/22 06:00] famotidine 40 mg tablet 40 mg PO DAILY stomach 06/13/22 [History Last Taken Unknown] folic acid 1 mg tablet 1 mg PO DAILY supplement 06/13/22 [History Last Taken Unknown] levothyroxine 25 mcg tablet 25 mcg PO DAILY thryoid 06/13/22 [History Last Taken 10/10/22] multivitamin 1 tab PO DAILY supplement 06/13/22 [History Last Taken Unknown] Juxta Lite #2 ea 08/15/22 [Rx Last Taken Unknown] doxazosin 2 mg tablet (Cardura) 2 mg PO BID 3 months #180 tabs 08/15/22 [Rx Last Taken 08/22/22 06:00] furosemide 40 mg tablet (Lasix) 60 mg PO BID water pill 08/15/22 [History Last Taken Unknown] icosapent ethyl 1 gram capsule (Vascepa) 2 g (2 x 1 gram) PO BID #180 caps 08/15/22 [Rx Last Taken Unknown] acetaminophen 325 mg capsule (Tylenol) 650 mg PO QHS pain 10/03/22 [History Last Taken Unknown] lidocaine 5 % topical patch 1 patch topical Q24H pain patch 01/30/23 [History Last Taken Unknown] hydralazine 50 mg tablet 50 mg PO .QID 3 months #360 tabs 06/05/23 [Rx Last Taken Unknown] gabapentin 100 mg capsule 200 mg (2 x 100 mg) PO DAILY PRN Neuropathy 3 months #90 caps 06/27/23 [Rx Last Taken Unknown] pantoprazole 40 mg tablet,delayed release 40 mg PO PRN Indigestion 06/30/23 [History Last Taken Unknown] nifedipine 60 mg tablet,extended release 60 mg PO BID BLOOD PRESSURE 07/16/23 [History Last Taken Unknown] nifedipine 60 mg tablet,extended release 24 hr 60 mg PO BID #60 tabs 07/19/23 [Rx Last Taken Unknown] amlodipine 10 mg tablet 10 mg PO DAILY blood pressure 07/22/23 [History Last Taken Unknown] Allergy/AdvReac Type Severity Reaction Status Date / Time beef derived (bovine) Allergy Unknown PT UNABLE Verified 08/04/23 12:00 TO RESPOND-NEEDS F/U Pork/Porcine Containing Allergy Unknown PT UNABLE Verified 08/04/23 12:00 Products TO RESPOND-NEEDS F/U adalimumab [From Humira] Allergy Hives Verified 08/04/23 12:00 Family History Mother Heart disease Hypertension Osteoporosis Father CVA (cerebral vascular accident) Hypertension Surgical History H/O transurethral resection of bladder tumor (TURBT) History of bladder surgery History of nephrectomy Hx of colonoscopy S/P partial hysterectomy S/P total knee arthroplasty S/P vein stripping Social History household members: family Smoking Status: Never smoker alcohol intake: never substance use type: does not use ROS ROS ED Review of Systems ROS Unobtainable: due to mental status EXAM Physical Exam Const Vital Signs: 08/04/23 11:53 08/04/23 13:35 08/04/23 13:30 Temperature 97.5 F L Temperature Source Temporal Pulse Rate 91 92 Respiratory Rate 16 23 H Respiratory Effort Normal Non-Labored Respiratory Depth Normal Respiratory Pattern Normal Blood Pressure 151/63 H 189/85 H Blood Pressure Mean 92 113 Pulse Ox 97 98 Oxygen Delivery Method Room Air Room Air 08/04/23 14:15 08/04/23 15:15 Temperature Temperature Source Pulse Rate 82 97 Respiratory Rate 20 H 19 H Respiratory Effort Respiratory Depth Respiratory Pattern Blood Pressure 180/59 H 187/75 H Blood Pressure Mean 94 108 Pulse Ox 100 Oxygen Delivery Method Negative for unkempt Constitutional Narrative: Frail General Appearance ED: NAD; Negative for unkempt HEENT Reports TM's normal bilaterally HEENT Narrative: Abrasion and contusion to left posterior scalp?occiput trauma; Negative for hematoma Eyes PERRL and EOMs intact bilaterally Neck supple Neck Narrative: Patient seems a diffuse tenderness to the cervical spine. Does not seem to localize. No obvious step-off. General: tenderness Chest Wall inspection of chest normal and palpation of chest normal Resp normal respiratory effort and clear to auscultation bilaterally Cardio regular rate and regular rhythm Cardio Narrative: AV fistula in left upper extremity with thrill present GI non-tender and non-distended Auscultation: normoactive bowel sounds Palpation: soft; Negative for guarding or rebound tenderness present Back/Spine Lumbar Spine / Lower Back: Negative for lumbar spinal tenderness Extremity Extremity Narrative: No obvious deformity. No pinpoint bony tenderness. Pelvis is stable. Normal range of motion of the lower extremities. No perceived pain with logroll. Neuro Arely Coma Scale: document GCS findings Spontaneous Localizes to Pain [id number] Sensorium / Orientation: orientation impaired and confused Motor Exam: general weakness Psych Appearance: Negative for unkempt Skin Trauma: abrasion MDM MDM MDM Narrative Medical decision making narrative: Patient is evaluated for unwitnessed fall. Does have a small contusion to the back of her scalp. CT of the brain and C-spine does not show any acute intracranial process or neck fracture. Patient's blood pressure is mildly elevated but appears to be at her baseline. Metabolic and trauma workup is obtained as well as looking for additional cause of her increased somnolence/mental status change. Workup is largely unremarkable however or at her baseline. Patient does not have an acute anemia or leukocytosis just infection. Her platelets are mildly low but again this is chronic. Lab work from prior to dialysis does show mild hyperkalemia and a significantly elevated BUN and creatinine however this is repeated since patient had dialysis this morning and patient's potassium is now normal at 4.5. She has improved butcontinually elevated BUN and creatinine which is consistent with her end-stage renal disease. She is not having significant electrolyte abnormalities. Her high sensitive troponin is only 45 and I do not think there is a primary ACS event going on. EKG is nonischemic. Urinalysis does show signs of infection with 10-25 white blood cells with rare bacteria and 100 leukocyte esterase however there are no nitrates. Will send for culture and give a dose of IV Rocephin in the emergency room. Prior urine culture was ultimately contaminant and negative. Chest x-ray as well as pelvic x-ray viewed by myself as well as radiology does not show any acute abnormalities. Case discussed with hospitalist as family is concerned about her continued mental status declining. Discussed that she had a teleneurology evaluation as well as MRI of the brain on her last admission and further testing such as lumbar puncture, continue oral EEG or in person neurology consult is not available at our facility. Family would like further evaluation and to know if there is something reversible that they can treat/cause versus this is what it is with her mental status at this point especially since she has had such steep decline. Initially request [facility] however after discussing with the transfer line he did not have any beds available and do not even have a wait list option. I will then reach out to [facility]. Anticipate patient will be transferred for further evaluation of her continued mental status change. Patient is hypertensive in the emergency room around 180 systolic sustained. Isgiven initially 10 mg IV hydralazine and then 20 mg IV labetalol for blood pressure control. At this time I do not think her blood pressure is so high that this is causing her mental status change. Patient's bxlnficf-li-ufx is updated on plan of care. She prefers her to be at a facility that does have inpatient neurology with this is [facility] versus [facility]. Patient is excepted at [facility]. Accepting physician is Dr. Villalobos. Case is discussed with him. History & Record Review Discussion w/independent historian: EMS personnel and Family Additional record(s) reviewed:: Prior inpatient record (See HPI) Lab Data Attestation: I reviewed the patient's lab results. Labs: Laboratory Results - last 24 hr 08/04/23 08/04/23 12:32 13:30 WBC 6.4 RBC 3.77 L Hgb 10.9 L Hct 33.4 L MCV 88.6 MCH 28.9 MCHC 32.6 RDW Std Deviation 54.3 H RDW Coeff of Wiliam 16.5 H Plt Count 95 L MPV 10.0 Immature Gran % (Auto) 1.400 H Neut % (Auto) 80.2 H Lymph % (Auto) 10.4 L Newberry % (Auto) 5.0 Eos % (Auto) 2.4 Baso % (Auto) 0.6 Absolute Neuts (auto) 5.1 Absolute Lymphs (auto) 0.66 L Nucleated RBC % 0 Differential Comment SCANNED Platelet Estimate MOD DEC PT 13.7 INR 1.1 Sodium 132 L Potassium 4.5 Chloride 95 L Carbon Dioxide 27.0 BUN 36 H Creatinine 4.11 H Estim Creat Clear Calc 7.45 Est GFR (MDRD) Af Amer 13 L Est GFR (MDRD) Non-Af 11 L BUN/Creatinine Ratio 8.8 L Glucose 190 H Calcium 9.4 Phosphorus 3.6 Total Bilirubin 0.30 Direct Bilirubin 0.07 AST 19 ALT 17 Alkaline Phosphatase 76 Ammonia < 10.0 L Total Creatine Kinase 33 Troponin I High Sens 45 Total Protein 6.8 Albumin 2.7 L Globulin 4.1 Urine Color Yellow Urine Clarity Sl. Cloudy Urine pH 8.0 Ur Specific [place] 1.010 Urine Protein 500 H Urine Glucose (UA) 50 H Urine Ketones Negative Urine Occult Blood 50 H Urine Nitrite Negative Urine Bilirubin Negative Urine Urobilinogen Normal Ur Leukocyte Esterase 100 H Urine RBC 0-5 SEEN Urine WBC 10-25 SEEN Ur Squamous Epith Cells 0 SEEN Urine Bacteria RARE Urine Mucus 0 SEEN Radiography Chest X-Ray - ED: 1 View, Read by ED Physician, Read by Radiologist and No AcuteDisease Diagnostic Testing: Clinical Impression(s) from Imaging Studies Brain CT 08/04/23 12:20 IMPRESSION: 1. Chronic involutional changes of the brain. 2. No visualized skull fracture or pneumocephalus or subdural hemorrhage or midline shift. Electronically Signed: Idris Traore MD at 13:23 EDT , Cervical Spine CT 08/04/23 12:20 IMPRESSION: Multilevel degenerative changes, as described above. Electronically Signed: Idris Traore MD at 13:20 EDT , Chest X-Ray 08/04/23 12:40 IMPRESSION: Mild cardiomegaly. No acute abnormality is seen. Electronically Signed: Horacio Sanchez MD at 12:54 EDT , Pelvis X-Ray 08/04/23 12:40 IMPRESSION: Degenerative changes. No fracture is seen. Electronically Signed: Horacio Sanchez MD at 12:54 EDT , Rhythm Strip Rhythm Strip: Sinus Rhythm Rate: 91 Ectopy: None EKG Initial EKG: Attestation: I personally reviewed and interpreted this EKG as follows: Interpretation: Sinus Rhythm Comments: Normal sinus rhythm rate of 91 bpm Normal axis Normal intervals Normal ST segments Management Discussion w/another healthcare provider: Hospitalist Discharge Plan Triage Chief Complaint: Fall ED Provider: Batool Caraballo Dx/Rx/DC Orders Clinical Impression: Abrasion of scalp, Closed head injury, Encephalopathy, ESRD (end stage renal disease) on dialysis, Unwitnessed fall Prescriptions: No Action icosapent ethyl [Vascepa] 1 gram capsule 2 g PO BID Qty: 180 3RF doxazosin [Cardura] 2 mg tablet 2 mg PO BID 90 Days Qty: 180 3RF (DME) Juxta Lite See Rx Instructions .Route .MEDSUPPLY Qty: 2 4RF Rx Instructions: As directed lidocaine 5 % adhesive patch,medicated 1 patch topical Q24H Patient Comments: apply 1 patch to affected area daily hydralazine 50 mg tablet 50 mg PO .QID 90 Days Qty: 360 1RF multivitamin Tablet 1 tab PO DAILY carvedilol 12.5 mg Tablet 12.5 mg PO BID Rx Instructions: must administer with a meal/food famotidine 40 mg Tablet 40 mg PO DAILY Vitamin C 1,000 mg Tablet Extended Release 1,000 mg PO DAILY levothyroxine 25 mcg Tablet 25 mcg PO DAILY folic acid 1 mg Tablet 1 mg PO DAILY Lumigan 0.01 % Drops 1 drp EACH EYE QHS pantoprazole 40 mg tablet,delayed release (DR/EC) 40 mg PO PRN furosemide [Lasix] 40 mg tablet 60 mg PO BID acetaminophen [Tylenol] 325 mg Capsule 650 mg PO QHS nifedipine 60 mg tablet extended release 60 mg PO BID nifedipine 60 mg Tablet Extended Release 24hr 60 mg PO BID Qty: 60 2RF amlodipine 10 mg tablet 10 mg PO DAILY gabapentin 100 mg capsule 200 mg PO DAILY PRN (Reason: Neuropathy) 90 Days Qty: 90 1RF Rx Instructions: Daily Prn Primary Care Provider: Osmani Morgan Referrals: Osmani Morgan MD [Primary Care Provider] - Disposition Disposition: Acute Care Hospital Discharge Location: [facility] What to do if you have Problems For any increased pain, shortness of breath, bleeding, nausea or vomiting, chestpain, or any unexpected problems, contact your Primary Care Provider. Call [facility] ([phone]) or report to the closest Emergency Room. Call 911 if necessary. 08/04/23 8588 <Electronically signed by Batool Caraballo DO> Cosigner Signature (if applicable): CC: Dr. Osmani Morgan MD ~ Signed [facility] Work Phone: [phone]) 373-616703-26-2024 Discharge summary Author [facility] July 22, 2023 3:15pm Note Date/Time July 21, 2023 12: 16pm [facility] Medical Records Department [address] [place] [id number] Discharge Summary 07/21/23 1215 MR#: [id number] Acct: [id number] Name: LAVINIA DURAND Rep #:[id number] : 1940 82 From: León vallecillo DO PCP: Dr. Osmani Morgan MD Status:A DM IN Location: [facility] [id number] Providers Date of Admission: 07/16/23 Date of Discharge: 07/21/23 Primary Care Physician: Dr. Osmani Morgan MD Consultations 07/16/23 02:41 Consult: Bond Analyst / Pulmonary Medicine Routine Consulting Provider: Intensivists/Pulmonary Med Reason for Consult: Hypertensive emergency, UTI EMERGENT Consult: No MD Notified: Yes Date Notified: 07/16/23 Time Notified: 02:19 Method of Notification: Text Consult: Nephrology Routine Consulting Provider: Shu Ballesteros Reason for Consult: ESRD on HD EMERGENT Consult: No MD Notified: Yes Date Notified: 07/16/23 Time Notified: 02:19 Method of Notification: Answering Service Reason For Visit: HYPERTENSIVE EMERGENCY, UTI Diagnosis Discharge Diagnosis (1) ESRD on dialysis: Status: Acute Code(s): N18.6 - End stage renal disease; Z99.2 - Dependence on renal dialysis (2) Hypertensive emergency: Status: Acute Code(s): I16.1 - Hypertensive emergency (3) Acute encephalopathy: Status: Acute Code(s): G93.40 - Encephalopathy, unspecified (4) Acute UTI: Status: Acute Code(s): N39.0 - Urinary tract infection, site not specified Medications at Discharge Home Medications ascorbic acid (vitamin C) 1,000 mg tablet,extended release (Vitamin C ER) 1,000 mg PO DAILY 06/13/22 bimatoprost 0.01 % eye drops (Lumigan) 1 drp EACH EYE QHS 06/13/22 carvedilol 12.5 mg tablet 12.5 mg PO BID BLOOD PRESSURE 06/13/22 famotidine 40 mg tablet 40 mg PO DAILY 06/13/22 folic acid 1 mg tablet 1 mg PO DAILY 06/13/22 levothyroxine 25 mcg tablet 25 mcg PO DAILY 06/13/22 multivitamin 1 tab PO DAILY 06/13/22 Juxta Lite #2 ea 08/15/22 doxazosin 2 mg tablet (Cardura) 2 mg PO BID 3 months #180 tabs 08/15/22 furosemide 40 mg tablet (Lasix) 60 mg PO BID 08/15/22 icosapent ethyl 1 gram capsule (Vascepa) 2 g (2 x 1 gram) PO BID #180 caps 08/15/22 acetaminophen 325 mg capsule (Tylenol) 650 mg PO QHS 10/03/22 hydrocodone-acetaminophen 5-325mg 5mg-325mg 1 tab PO Q6H PRN pain 3 days #12 tabs 10/10/22 lidocaine 5 % topical patch patch topical 01/30/23 hydralazine 50 mg tablet 50 mg PO .QID 3 months #360 tabs 06/05/23 gabapentin 100 mg capsule 200 mg (2 x 100 mg) PO DAILY PRN Neuropathy 3 months #90 caps 06/27/23 pantoprazole 40 mg tablet,delayed release 40 mg PO PRN Indigestion 06/30/23 nifedipine 60 mg tablet,extended release 60 mg PO BID BLOOD PRESSURE 07/16/23 nifedipine 60 mg tablet,extended release 24 hr 60 mg PO BID #60 tabs 07/19/23 Hospital Course Procedures Dialysis, EKG, Transthoracic echo and - (Chest x-ray, CT brain without contrast) Summary of Care Provided Minutes Spent on Discharge: 35 Hospital Course: Patient is an 82-year-old female who presented to [facility] ED on 07/16/2023 with confusion and decreased responsiveness. Hospital course as noted below. Patient discharged to SNF in stable condition on 07/20. 1. Acute metabolic encephalopathy, resolved ? Suspected secondary to hypertensive emergency as noted below. CT brain without contrast on admit nonacute. Improved hospital day 2. Treatment as noted below. 2. Hypertensive emergency Suspected secondary to volume overload with need for increased volume removal with hemodialysis. Chest x-ray on admit nonacute. CT brain nonacute. Echo showed EF 65%, stage I diastolic dysfunction, severe concentric LV hypertrophy, no valve abnormalities. ? Nephrology followed. Treated with Cardene drip on admission with improvement. Dialyzed during admission as noted below. Okay to continue home regimen on discharge of Coreg 12.5 mg twice daily, doxazosin 2 mg twice daily, Lasix 60 mg twice daily, hydralazine 50 mg 4 times daily, nifedipine 60 mg twice daily. 3. Concern for UTI ? UA on admit showed 500 leukocyte esterase, negative nitrates, 1+ bacteria. Urine culture with no growth. Empirically treated with 5-day course of ceftriaxone that was completed while inpatient. 4. ESRD ? Nephrology followed as above. On HD MWF. Last HD session on morning of 07/20 prior to discharge. Chronic medical conditions: ? Hypothyroidism: Continue home Synthroid. ? RA, Sjogren's disease: Stable. Continue home eyedrops. ? History of bladder cancer s/p transurethral resection of bladder tumor: Outpatient follow-up with urology as needed. ? GERD: Continue home PPI. Total clinical time spent by myself addressing the patient's medical issues, reviewing all the data, and collaborating with patient's care team: 35 minutes. Physical Exam Const alert, oriented x3, no apparent distress and well nourished General Appearance: cooperative HEENT normocephalic, head/scalp atraumatic, moist oral mucous membranes and oropharynxnormal Eyes PERRL and EOMs intact bilaterally Neck no lymphadenopathy and supple Lymph Lymphatic: no lymphadenopathy noted and no lymphedema noted Resp normal respiratory effort, normal air movement and clear to auscultation bilaterally Cardio regular rate, regular rhythm, S1 normal heart sound, S2 normal heart sound and no murmurs GI normal to inspection, nondistended, normoactive bowel sounds, soft to palpation,non-tender and non-distended Extremity normal capillary refill, no clubbing, cyanosis or edema and no calf tenderness General Extremity: no tenderness to palpation of joints or extremities Skin General Skin Exam: no breakdown Neuro CN's II-XII intact bilaterally, no focal motor deficits, no sensory deficits noted and deep tendon reflexes 2+ bilaterally Motor Exam: strength 5/5 throughout and general weakness Psych thought process normal and cooperative Appearance: appropriate Weight / BMI Weight Weight: 44.2 kg Body Mass Index (BMI) 19.1 ABG / Lab / Microbiology Data 07/21/23 06:17 07/21/23 06:17 Laboratory: Laboratory Results - last 24 hr 07/20/23 11:50: POC Glucose 124 H 07/20/23 17:12: POC Glucose 112 H 07/20/23 21:34: POC Glucose 140 H 07/21/23 06:05: POC Glucose 94 07/21/23 06:17: WBC 6.7, RBC 3.65 L, Hgb 10.3 L, Hct 33.0 L, MCV 90.4, MCH 28.2,MCHC 31.2 L, RDW Std Deviation 56.6 H, RDW Coeff of Wiliam 16.9 H, Plt Count 150, MPV 11.1, Immature Gran % (Auto) 1.100 H, Neut % (Auto) 69.3, Lymph % (Auto) 17.4 L, Newberry % (Auto) 9.0, Eos % (Auto) 2.7, Baso % (Auto) 0.5, Absolute Neuts (auto) 4.6, Absolute Lymphs (auto) 1.16, Nucleated RBC % 0, Sodium 134 L, Potassium 4.6, Chloride 101, Carbon Dioxide 22.0, Anion Gap 11, BUN 47 H, Creatinine 7.24 H, Estim Creat Clear Calc 4.23, Est GFR (MDRD) Af Amer 7 L, Est GFR (MDRD) Non-Af 6 L, BUN/Creatinine Ratio 6.5 L, Glucose 103, Calcium 9.2 07/21/23 10:34: POC Glucose 125 H Microbiology: Microbiology 07/15/23 23:28 Blood Culture (Wb) - Right Wrist Blood Culture - Final No growth in 5 days. 07/15/23 23:18 Blood Culture (Wb) - Anticubital Right Blood Culture - Final No growth in 5 days. 07/16/23 00:10 Urine, Clean Catch Urine Culture - Final Culture exhibits no growth. 07/16/23 00:16 Mucosa - Nose SARS-CoV-2, Influenza & RSV (PCR) - Final Meaningful Use Info Meaningful Use Diagnoses (Choose all that apply): None applicable Discharge Plan Admission Admit Date/Time: 07/16/23 01:40 Primary Reason for Your Visit: acute encephalopathy, HTN emergency Attending Provider: León Ye Primary Care Provider: Osmani Morgan Consulting Providers: Anastacia Selby; Shu Ballesteros; Maria Del Rosario Cooper Instructions Patient Instructions: Controlling High Blood Pressure, ED UTIs Women Discharge Orders/Prescriptions Prescriptions: New nifedipine 60 mg Tablet Extended Release 24hr 60 mg PO BID Qty: 60 2RF Continued icosapent ethyl [Vascepa] 1 gram capsule 2 g PO BID Qty: 180 3RF doxazosin [Cardura] 2 mg tablet 2 mg PO BID 90 Days Qty: 180 3RF (DME) Juxta Lite See Rx Instructions .Route .MEDSUPPLY Qty: 2 4RF Rx Instructions: As directed lidocaine 5 % adhesive patch,medicated topical Patient Comments: apply 1 patch to affected area daily hydralazine 50 mg tablet 50 mg PO .QID 90 Days Qty: 360 1RF multivitamin Tablet 1 tab PO DAILY carvedilol 12.5 mg Tablet 12.5 mg PO BID Rx Instructions: must administer with a meal/food famotidine 40 mg Tablet 40 mg PO DAILY Vitamin C 1,000 mg Tablet Extended Release 1,000 mg PO DAILY levothyroxine 25 mcg Tablet 25 mcg PO DAILY folic acid 1 mg Tablet 1 mg PO DAILY Lumigan 0.01 % Drops 1 drp EACH EYE QHS pantoprazole 40 mg tablet,delayed release (DR/EC) 40 mg PO PRN furosemide [Lasix] 40 mg tablet 60 mg PO BID Rx Instructions: q acetaminophen [Tylenol] 325 mg Capsule 650 mg PO QHS hydrocodone-acetaminophen 5-325 mg tablet 1 tab PO Q6H PRN (Reason: pain) 3 Days Qty: 12 0RF nifedipine 60 mg tablet extended release 60 mg PO BID gabapentin 100 mg capsule 200 mg PO DAILY PRN (Reason: Neuropathy) 90 Days Qty: 90 1RF Rx Instructions: Daily Prn Discontinued amlodipine 10 mg tablet 10 mg PO DAILY Referrals / Follow Up: Osmani Morgan MD [Primary Care Provider] - Within 1 Week Disposition Disposition (needs filled in before D/C Order can be placed): Assisted Facility Charges/Coding Visit Charges Inpatient E&M: 25131 Disch Hosp >30min 07/21/23 1216 <Electronically signed by León Ye DO> Cosigner Signature (if applicable): CC: Dr. León Ye DO; Dr. Osmani Morgan MD~ Signed ADDENDUM by Dr. León Ye DO on 07/22/23 at 1515 Addendum Patient discharge was canceled on the evening of 07/20 given concern for patient's mentation being worse than her baseline and concern for possible stroke. Patient had MRI brain done on evening of 07/20 that showed no evidence of stroke. Mentation was improved on 07/21. Teleneurology evaluated the patienton the afternoon of 07/21, noted that the patient showed some mild confusion and that the patient had noted bilateral lower extremity weakness at around 2/5 strength. Neurology recommendation was to continue current medical management and PT/OT, okay for discharge to skilled nurse facility. Neurology did note that if bilateral lower extremities continued to be significantly weak, could consider getting MRI spine done in the future. Patient discharged to SNF in stable condition on 07/21. 07/22/23 1515<Electronically signed by León Ye DO> Cosigner Signature (if applicable): cc: Dr. León Ye DO; Dr. Osmani Morgan MD ~* Signed [facility] Work Phone: 1(152) 662-562103-26-2024 Consult note Author Todd Dougherty [facility] July 22, 2023 2:34pm Note Date/Time July 22, 2023 2:3 4pm [facility] Medical Records Department [address] [place] [address] Consultation - Neurology 07/22/23 1426 MR#: [id number] Acct: [id number] Name: LAVINIA DURAND Rep #:[id number] : 1940 82 From: Todd Dougherty MD PCP: Dr. Osmani Morgan MD Status:A DM IN Location: [place] [address] Assessment and Plan: Stroke Assessment/Plan LAVINIA DURAND is a 82 F with a history of UTIs who presents for evaluation of CVA Neurological examination shows some mild confusion. Neuroimaging shows MRI with no acute infarct. Continue current medical management. PT/OT. If BLE continue to be weak, then can get MRI spine. -? General: Laying comfortably in bed; in no acute distress. -? HENT: Normal oropharynx and mucosa. Normal external appearance of ears and nose. Exophthalmos. -? Neck: Supple, no pain or tenderness -? CV:? No peripheral edema. -? Pulmonary:? Normal respiratory effort. -? Ext: No cyanosis, edema, or deformity -? Skin: No rash. Normal palpation of skin.? -? Musculoskeletal: full range of motion; no joint tenderness. Normal digits and nails by inspection. No clubbing. -? NEURO: -? Mental Status: The patient was alert and oriented to time, place, andperson. Normal recent/remote memory, concentration, and general fund of knowledge. -? Language: speech is .? Naming, repetition, fluency, and comprehension intact. -? Cranial Nerves: PERRL mm/brisk. EOMI, visual diaz full, no facial asymmetry, facial sensation intact, hearing intact, tongue midline, no evidence of atrophy or fibrillations. As performed by the nurse/CAROL ANN Sternocleidomastoid and trapezius were equally strong. Soft palate raisesequally, no uvular deviations -? Motor: normal bulk, tone, and strength throughout. No pronator drift or satelliting. BLE weak 2/5 -? Detailed strength exam as performed by the nurse/CAROL ANN and witnessedby the physician: NIH 5 -? Tone: is normal and bulk is normal -? Sensation- Intact to light touch bilaterally -? Coordination: No dysmetria on [id number], finger follow finger or [id number]. -? Gait- Gait initiation was normal. Narrow base with good heel strike and stride length was observed during ambulation. Turns were in stride. Patient was able to walk normally in tandem. Romberg was normal. SL HPI Consult Data Date of Consult: 07/22/23 HPI Narrative HPI Narrative: LAVINIA DURAND, is a 82 F who presents [facility] Medical History Anemia Arthritis Bilateral lower extremity edema Cancer Cardiomyopathy CKD (chronic kidney disease) stage 5, GFR less than 15 ml/min Gastric reflux Glaucoma Heart failure Heart murmur Hx of fracture of wrist Hyperlipidemia Hypertension Hypothyroidism Kidney failure Lumbar spinal stenosis Macular degeneration Mitral regurgitation Osteoporosis Rheumatoid arthritis Shortness of breath on exertion Sjogren syndrome with inflammatory arthritis Thyroid disease Type 2 diabetes mellitus Vertigo Home Medications ascorbic acid (vitamin C) 1,000 mg tablet,extended release (Vitamin C ER) 1,000 mg PO DAILY 06/13/22 [History Last Taken Unknown] bimatoprost 0.01 % eye drops (Lumigan) 1 drp EACH EYE QHS 06/13/22 [History Last Taken Unknown] carvedilol 12.5 mg tablet 12.5 mg PO BID BLOOD PRESSURE 06/13/22 [History Last Taken 08/22/22 06:00] famotidine 40 mg tablet 40 mg PO DAILY 06/13/22 [History Last Taken Unknown] folic acid 1 mg tablet 1 mg PO DAILY 06/13/22 [History Last Taken Unknown] levothyroxine 25 mcg tablet 25 mcg PO DAILY 06/13/22 [History Last Taken 10/10/22] multivitamin 1 tab PO DAILY 06/13/22 [History Last Taken Unknown] Juxta Lite #2 ea 08/15/22 [Rx Last Taken Unknown] doxazosin 2 mg tablet (Cardura) 2 mg PO BID 3 months #180 tabs 08/15/22 [Rx Last Taken 08/22/22 06:00] furosemide 40 mg tablet (Lasix) 60 mg PO BID 08/15/22 [History Last Taken Unknown] icosapent ethyl 1 gram capsule (Vascepa) 2 g (2 x 1 gram) PO BID #180 caps 08/15/22 [Rx Last Taken Unknown] acetaminophen 325 mg capsule (Tylenol) 650 mg PO QHS 10/03/22 [History Last Taken Unknown] hydrocodone-acetaminophen 5-325mg 5mg-325mg 1 tab PO Q6H PRN pain 3 days #12 tabs 10/10/22 [Rx Last Taken Unknown] lidocaine 5 % topical patch patch topical 01/30/23 [History Last Taken Unknown] hydralazine 50 mg tablet 50 mg PO .QID 3 months #360 tabs 06/05/23 [Rx Last Taken Unknown] gabapentin 100 mg capsule 200 mg (2 x 100 mg) PO DAILY PRN Neuropathy 3 months #90 caps 06/27/23 [Rx Last Taken Unknown] pantoprazole 40 mg tablet,delayed release 40 mg PO PRN Indigestion 06/30/23 [History Last Taken Unknown] nifedipine 60 mg tablet,extended release 60 mg PO BID BLOOD PRESSURE 07/16/23 [History Last Taken Unknown] nifedipine 60 mg tablet,extended release 24 hr 60 mg PO BID #60 tabs 07/19/23 [Rx Last Taken Unknown] Allergy/AdvReac Type Severity Reaction Status Date / Time adalimumab [From Humira] Allergy Hives Verified 06/05/23 13:37 Family History Mother Heart disease Hypertension Osteoporosis Father CVA (cerebral vascular accident) Hypertension Surgical History H/O transurethral resection of bladder tumor (TURBT) History of bladder surgery History of nephrectomy Hx of colonoscopy S/P partial hysterectomy S/P total knee arthroplasty S/P vein stripping Social History household members: family Smoking Status: Never smoker alcohol intake: never substance use type: does not use Vital Signs Vital Signs Vital Signs: 07/21/23 14:46 07/21/23 14:41 07/21/23 15:22 Temperature 97.8 F Temperature Source Oral Pulse Rate 86 86 70 Pulse Strength Respiratory Rate 14 Respiratory Effort Respiratory Depth Respiratory Pattern Blood Pressure 192/86 H 196/80 H Blood Pressure [BP] Blood Pressure Mean 118 Blood Pressure Mean [BP] Blood Pressure Source Monitor Blood Pressure Source [BP] Blood Pressure Position Semi-Fowlers Blood Pressure Position [BP] Blood Pressure Location Right Arm Blood Pressure Location [BP] Pulse Ox 97 Oxygen Delivery Method Room Air 07/21/23 15:57 07/21/23 16:00 07/21/23 17:07 Temperature 98.2 F Temperature Source Oral Pulse Rate 87 70 82 Pulse Strength Respiratory Rate 12 Respiratory Effort Respiratory Depth Respiratory Pattern Blood Pressure 196/90 H 183/72 H Blood Pressure [BP] 192/90 H Blood Pressure Mean 125 Blood Pressure Mean [BP] 124 Blood Pressure Source Monitor Blood Pressure Source [BP] Monitor Blood Pressure Position Semi-Fowlers Blood Pressure Position [BP] Semi-Fowlers Blood Pressure Location Right Arm Blood Pressure Location [BP] Right Arm Pulse Ox 97 Oxygen Delivery Method Room Air 07/21/23 18:00 07/21/23 19:01 07/21/23 22:09 Temperature 98 F Temperature Source Oral Pulse Rate 72 76 Pulse Strength Respiratory Rate 14 Respiratory Effort Normal Non-Labored Respiratory Depth Respiratory Pattern Blood Pressure 183/70 H 156/59 H Blood Pressure [BP] Blood Pressure Mean 107 Blood Pressure Mean [BP] Blood Pressure Source Monitor Blood Pressure Source [BP] Blood Pressure Position Semi-Fowlers Blood Pressure Position [BP] Blood Pressure Location Right Arm Blood Pressure Location [BP] Pulse Ox 98 Oxygen Delivery Method Room Air 07/21/23 23:00 07/21/23 22:00 07/22/23 00:00 Temperature 98.1 F Temperature Source Temporal Pulse Rate 76 Pulse Strength Normal (2+) Respiratory Rate 18 Respiratory Effort Normal Respiratory Depth Normal Respiratory Pattern Normal Blood Pressure 156/59 H Blood Pressure [BP] Blood Pressure Mean 91 Blood Pressure Mean [BP] Blood Pressure Source Monitor Blood Pressure Source [BP] Blood Pressure Position Semi-Fowlers Blood Pressure Position [BP] Blood Pressure Location Right Arm Blood Pressure Location [BP] Pulse Ox 97 Oxygen Delivery Method Room Air Room Air 07/22/23 03:00 07/22/23 04:08 07/22/23 06:23 Temperature 97.9 F 97.9 F Temperature Source Temporal Temporal Pulse Rate 79 84 Pulse Strength Respiratory Rate 18 18 Respiratory Effort Normal Respiratory Depth Normal Respiratory Pattern Normal Blood Pressure 132/61 H 149/73 H Blood Pressure [BP] Blood Pressure Mean 84 98 Blood Pressure Mean [BP] Blood Pressure Source Monitor Monitor Blood Pressure Source [BP] Blood Pressure Position Semi-Fowlers Semi-Fowlers Blood Pressure Position [BP] Blood Pressure Location Right Arm Right Arm Blood Pressure Location [BP] Pulse Ox 98 98 Oxygen Delivery Method Room Air Room Air Room Air 07/22/23 07:52 07/22/23 07:53 07/22/23 08:00 Temperature Temperature Source Pulse Rate 87 Pulse Strength Normal (2+) Respiratory Rate Respiratory Effort Normal Respiratory Depth Normal Respiratory Pattern Normal Blood Pressure Blood Pressure [BP] 161/71 H Blood Pressure Mean Blood Pressure Mean [BP] 101 Blood Pressure Source Blood Pressure Source [BP] Blood Pressure Position Blood Pressure Position [BP] Blood Pressure Location Blood Pressure Location [BP] Pulse Ox Oxygen Delivery Method Room Air 07/22/23 10:31 07/22/23 10:36 07/22/23 14:26 Temperature 97.5 F L Temperature Source Temporal Pulse Rate 86 86 87 Pulse Strength Respiratory Rate 18 Respiratory Effort Respiratory Depth Respiratory Pattern Blood Pressure 158/75 H Blood Pressure [BP] 135/76 H Blood Pressure Mean 102 Blood Pressure Mean [BP] 95 Blood Pressure Source Monitor Blood Pressure Source [BP] Monitor Blood Pressure Position Semi-Fowlers Blood Pressure Position [BP] Semi-Fowlers Blood Pressure Location Right Arm Blood Pressure Location [BP] Right Arm Pulse Ox 98 Oxygen Delivery Method Room Air Weight Weight: 44.2 kg Body Mass Index (BMI) 19.1 EEG Results Procedure Details EEG Procedure Details: LAVINIA DURAND is a 82 year old F with a past medical history of , who presents for evaluation of Electroencephalogram on DATE at TIME NIHSS NIHSS Nursing Documentation NIHSS Nursing Documentation: NIHSS: Ischemic Stroke/TIA Start: 07/21/23 17:37 Text: For PCU Patients: NIH and Neuro Check every 4 Status: Complete hours and PRN Freq: Q4H Protocol: Activity Type Activity Date Activity User E-sign Co-sign Detail Recorded Client Recorded Date Recorded By Document 07/22/23 06:26 [id number] 07/22/23 06:27 07/22/23 06:26 NIH Stroke Scale [NIHSS] A score of 0 is normal or asymptomatic . Total possible score is 42. Inpatient: RN or Physician to activate a stroke alert for onset of new stroke symptoms or with NIHSS increase >/= 3 points. Following change in neurological status, NIHSS will be performed per physician order or more frequently PRN. -1a. Level of Consciousness Alert; keenly responsive -1b. LOC Questions Answers one question correctly. -1c. LOC Commands Performs both tasks correctly . -2. Best Gaze Normal -3. Visual No visual loss -4. Facial Palsy Normal symmetrical movements -5a. Left Arm No drift; arm holds 90 (or 45 ) degrees for full 10 seconds -5b. Right Arm No drift; arm holds 90 (or 45 ) degrees for full 10 seconds -6a. Left Leg Drift; leg falls by the end of 5- seconds, but does not hit bed -6b. Right Leg Drift; leg falls by the end of 5- seconds, but does not hit bed -7. Limb Ataxia Absent -8. Sensory Normal; no sensory loss -9. Best Language No aphasia; normal -10. Dysarthria Normal -11. Extinction and Inattention No abnormality -Total 3 Query Text:A score of 0 is normal or asymptomatic. Total possible score is 42 . ED: Notify Physician for NIHSS increase by > / = 3 points. Inpatient: RN or Physician to activate a stroke alert for NIHSS increase of > / = 3 points. Coma Scale [Assess] -Eye Opening Spontaneous -Motor Obeys Commands -Verbal Confused [Total] -Coma Scale Total 14 Lab / Micro Data 07/22/23 06:25 07/22/23 06:25 Labs: Laboratory Results - last 24 hr 07/21/23 16:24: POC Glucose 119 H 07/21/23 22:02: POC Glucose 176 H 07/22/23 06:04: POC Glucose 99 07/22/23 06:25: WBC 6.6, RBC 3.83 L, Hgb 10.9 L, Hct 34.8 L, MCV 90.9, MCH 28.5, MCHC 31.3 L, RDW Std Deviation 56.7 H, RDW Coeff of Wiliam 17.0 H, Plt Count 179, MPV 10.8, Immature Gran % (Auto) 1.100 H, Neut % (Auto) 70.5 H, Lymph % (Auto) 16.6 L, Newberry % (Auto) 8.7, Eos % (Auto) 2.3, Baso % (Auto) 0.8, Absolute Neuts (auto) 4.6, Absolute Lymphs (auto) 1.09, Nucleated RBC % 0, Sodium 133 L, Potassium 4.4, Chloride 100, Carbon Dioxide 22.0, Anion Gap 11, BUN 35 H, Creatinine 5.47 H, Estim Creat Clear Calc 5.44, Est GFR (MDRD) Af Amer 10 L, Est GFR (MDRD) Non-Af 8 L, BUN/Creatinine Ratio 6.4 L, Glucose 99, Calcium 9.3, Triglycerides 209 H, Cholesterol 198, LDL Cholesterol 107, VLDL Cholesterol 42 H, HDL Cholesterol 49 07/22/23 11:33: POC Glucose 254 H Rhythm Strip Rhythm Strip: Sinus Rhythm Rate: 95 Ectopy: None Imaging Radiology Impression Brain MRI 07/21/23 17:29 IMPRESSION: Atrophy and minor periventricular white matter ischemic change without evidence for acute infarct. Electronically Signed: Edmar Zaldivar MD at 19:48 EDT Reading Location ID and State: [address] [place] [address] Tel , Service support , Active Medications Active Medications Active Medications: Current Medications Generic Name Dose Route Start Last Admin Trade Name Freq PRN Reason Stop Dose Admin Acetaminophen 650 mg 07/16/23 02:41 07/20/23 20:23 Acetaminophen 325 Mg Tablet PO 650 mg Q4H PRN PRN Administration Fever, pain 1-02/04 Al Hydroxide/Mg Hydroxide 30 ml 07/16/23 02:41 Mag Hydrox/Al Hydrox/Simeth 30 Ml Udc PO Q6H PRN PRN Gastric Burning Albuterol Sulfate 2.5 mg 07/16/23 02:41 Albuterol 2.5 Mg/3 Ml Vial.Neb. INHALATION Q2H PRN PRN Dyspnea, wheezing Aspirin 81 mg 07/21/23 17:45 07/22/23 10:42 Aspirin 81 Mg Tab.Chew PO 81 mg BREAKFAST HOWARD Administration Calamine/Phenol 1 applic 07/16/23 10:00 07/22/23 10:36 Menthol/Lanolin/Calamine/Znox 113 Gm Tube TOPICAL Not Given 4X/DAY [facility] Protocol Carvedilol 25 mg 07/20/23 08:00 07/22/23 08:02 Carvedilol 25 Mg Tablet PO 25 mg BIDCM [facility] Administration Protocol Chlorhexidine Gluconate 1 each 07/16/23 10:00 07/22/23 07:59 Chlorhexidine Gluc 2% Cloth 1 Each [place] TOPICAL Not Given DAILY [facility] Compound Med 2 click 07/17/23 22:26 07/22/23 10:36 Arthritis Pain Compound 60 Click Tube TOPICAL 2 click BID [facility] Administration Protocol Dextrose 0 gm 07/16/23 02:41 Dextrose 50%-Water 25 Gm/50 Ml Disp.Syrin IV X1 PRN HYPOGLYCEMIA Protocol Doxazosin Mesylate 2 mg 07/16/23 10:00 07/22/23 10:36 Doxazosin 1 Mg Tablet PO 2 mg BID [facility] Administration Folic Acid 1 mg 07/16/23 08:00 07/22/23 08:03 Folic Acid 1 Mg Tablet PO 1 mg DAILYCM [facility] Administration Furosemide 60 mg 07/16/23 10:00 07/22/23 10:36 Furosemide 20 Mg Tablet PO 60 mg BIDLX [facility] Administration Protocol Glucagon 1 mg 07/16/23 02:41 Glucagon 1 Mg/Ml Syringe IM X1 PRN HYPOGLYCEMIA Guaifenesin 10 ml 07/16/23 02:41 Guaifenesin 10 Ml Udc (200mg/10ml) PO Q4H PRN PRN COUGH Heparin Sodium (Porcine) 5,000 unit 07/16/23 10:00 07/22/23 10:37 Heparin Injection (Vial) 5,000 Unit/Ml Vial SC 5,000 unit Q12 [facility] Administration Hydralazine HCl 50 mg 07/16/23 10:00 07/22/23 10:36 Hydralazine 50 Mg Tablet PO 50 mg 4X/DAY [facility] Administration Protocol Hydralazine HCl 5 mg 07/21/23 17:37 Hydralazine 20 Mg/Ml Vial IV Q30M PRN to maintain BP goals Sodium Chloride 250 mls @ 15 mls/hr 07/16/23 02:43 IV .[id number] PRN Additional IVPB Infusion Sodium Chloride 250 mls @ 15 mls/hr 07/16/23 02:43 IV .[id number] PRN Saline Flush Insulin Human Lispro 0 unit 07/16/23 07:00 07/22/23 11:34 Insulin Lispro 100 Unit/Ml Insuln.Pen SC 3 u ACHS [facility] Administration Protocol Labetalol HCl 10 - 20 mg 07/21/23 17:37 Labetalol (Prefilled) 20 Mg/4 Ml IV Q10M PRN PRN to Maintain BP Goals Latanoprost 1 drp 07/16/23 22:00 07/21/23 22:08 Latanoprost 0.005% 1 Bottle EACH EYE 1 drp QHS [facility] Administration Levothyroxine Sodium 25 mcg 07/16/23 06:00 07/22/23 06:05 Levothyroxine 25 Mcg Tablet PO 25 mcg 0600 [facility] Administration Lidocaine 1 patch 07/16/23 10:00 07/22/23 10:36 Lidocaine 5% Patch TOPICAL Not Given DAILY [facility] Protocol Melatonin 3 mg 07/16/23 02:41 07/19/23 23:46 Melatonin 3 Mg Tablet PO 3 mg QHS PRN PRN Administration INSOMNIA Multivitamins 1 tablet 07/16/23 08:00 07/22/23 08:02 Multivitamins,Therapeutic Tablet PO 1 tablet DAILYCM [facility] Administration Nifedipine 60 mg 07/16/23 10:00 07/22/23 10:36 Nifedipine 60 Mg Tablet PO 60 mg BID [facility] Administration Protocol Ondansetron HCl 4 mg 07/16/23 02:41 Ondansetron 4 Mg/2 Ml Vial IV Q8H PRN PRN NAUSEA/VOMITING Pantoprazole Sodium 40 mg 07/16/23 10:00 07/22/23 10:36 Pantoprazole Sodium 40 Mg Tablet PO 40 mg DAILY [facility] Administration Prochlorperazine Edisylate 5 mg 07/16/23 02:41 Prochlorperazine 10 Mg/2 Ml Vial IV Q4H PRN PRN Breakthrough Nausea/Vomiting Senna/Docusate Sodium 2 tablet 07/16/23 02:41 Senna/Docusate Sodium 1 Tablet PO BID PRN PRN Constipation Sodium Chloride 10 - 40 ml 07/16/23 02:43 07/21/23 06:01 0.9% Saline Lock 10 Ml Syringe IV 10 ml UD PRN Administration SALINE FLUSH 07/22/23 1434 <Electronically signed by Todd Dougherty MD> Cosigner Signature (if applicable): CC: Sherita Freitas; Aleshia Martinez; Chalino Mosley; Staci Duron MD; Priti Harden MD; Lamin Smith MD; Dr. Francesca Kuhn MD; Dr. Anastacia Selby MD; Dr. Kimani Milligan MD; Dr. Osmani Morgan MD; Dr. Emma Orellana MD; Dr. Lorrie Gallegos MD; Dr. Thompson Belle MD; Dr. Shu Ballesteros MD; Dr. Kyle Borrero DO; Dr. Lauren Post MD; Dr. Linda Celestin MD; Dr. Maria Del Rosario Cooper MD; Dr. Zion Byers MD; Dr. Todd Dougherty MD; Dr. Ariane Casas MD; Melly Sandoval DO; Maria Elena Regan MD~ Signed [facility] Work Phone: 1(336) 203-141003-25-2024 Progress note Author León [facility] July 21, 2023 5:37pm Note Date/Time July 21, 2023 5:3 7pm [facility] Medical Records Department [address] [place] [address] Progress Note - Hospitalist 07/21/23 1730 MR#: [id number] Acct: [id number] Name: LAVINIA DURAND Rep #:[id number] : 1940 82 From: León vallecillo DO PCP: Dr. Osmani Morgan MD Status:A DM IN Location: [place] [id number] Reason for Visit Reason for Visit: Diagnoses Encephalopathy, unspecified (07/16/23) Hypertensive emergency (07/16/23) End stage renal disease (07/16/23) Urinary tract infection, site not specified (07/16/23) Dependence on renal dialysis (07/16/23) Subjective Subjective Patient seen at bedside this morning. She was having dialysis on at that time, dialysis nurse present. Patient was laying in bed fairly comfortably and appeared to be making appropriate eye contact with me but was answering questions with only short responses for me. She denied any acute pain or discomfort. No other acute concerns. Objective Data Objective Data Vital Signs: Vital Signs Temp Pulse Resp BP Pulse Ox O2 Del Method 98.2 F 82 12 183/72 H 97 Room Air 07/21/23 16:00 07/21/23 17:07 07/21/23 16:00 07/21/23 17:07 07/21/23 16:00 07/21/23 16:00 Oxygen Delivery Method Room Air Weight: 44.2 kg Body Mass Index (BMI) 19.1 Intake & Output: Intake and Output for Last 24 Hours 07/19/23 07/20/23 07/21/23 23:59 23:59 23:59 Intake Total 1070 / 1070 530 / 530 120 / 120 Output Total 2420 / 2420 Balance 1070 / 1070 530 / 530 -2300 / -2300 Lab / Micro Data 07/21/23 06:17 07/21/23 06:17 Labs: Laboratory Results - last 24 hr 07/20/23 17:12: POC Glucose 112 H 07/20/23 21:34: POC Glucose 140 H 07/21/23 06:05: POC Glucose 94 07/21/23 06:17: WBC 6.7, RBC 3.65 L, Hgb 10.3 L, Hct 33.0 L, MCV 90.4, MCH 28.2,MCHC 31.2 L, RDW Std Deviation 56.6 H, RDW Coeff of Wiliam 16.9 H, Plt Count 150, MPV 11.1, Immature Gran % (Auto) 1.100 H, Neut % (Auto) 69.3, Lymph % (Auto) 17.4 L, Newberry % (Auto) 9.0, Eos % (Auto) 2.7, Baso % (Auto) 0.5, Absolute Neuts (auto) 4.6, Absolute Lymphs (auto) 1.16, Nucleated RBC % 0, Sodium 134 L, Potassium 4.6, Chloride 101, Carbon Dioxide 22.0, Anion Gap 11, BUN 47 H, Creatinine 7.24 H, Estim Creat Clear Calc 4.23, Est GFR (MDRD) Af Amer 7 L, Est GFR (MDRD) Non-Af 6 L, BUN/Creatinine Ratio 6.5 L, Glucose 103, Calcium 9.2 07/21/23 10:34: POC Glucose 125 H 07/21/23 16:24: POC Glucose 119 H Micro: Microbiology 07/15/23 23:28 Blood Culture (Wb) - Right Wrist Blood Culture - Final No growth in 5 days. 07/15/23 23:18 Blood Culture (Wb) - Anticubital Right Blood Culture - Final No growth in 5 days. 07/16/23 00:10 Urine, Clean Catch Urine Culture - Final Culture exhibits no growth. 07/16/23 00:16 Mucosa - Nose SARS-CoV-2, Influenza & RSV (PCR) - Final Rhythm Strip Rhythm Strip: Sinus Rhythm Rate: 95 Ectopy: None Physical Exam Const alert and no apparent distress Constitutional Narrative: Elderly female, thin, making appropriate eye contact but appears fatigued and only answering questions with very short responses, otherwise laying fairly comfortably in bed, in no acute distress. General Appearance: cooperative and comfortable HEENT normocephalic, head/scalp atraumatic, hearing grossly normal bilaterally and nasal mucous membranes and turbinates normal Eyes PERRL, EOMs intact bilaterally and conjunctivae normal Neck full ROM Chest inspection of chest normal Resp normal respiratory effort, normal air movement, no use of accessory muscles and clear to auscultation bilaterally Cardio regular rate, regular rhythm, no murmurs and peripheral pulses 2+ throughout GI normal to inspection, nondistended, normoactive bowel sounds, soft to palpation,non-tender and non-distended Back/Spine normal ROM Extremity normal to inspection, full ROM and no pedal edema Skin no rashes or lesions noted Neuro moves all extremities and no focal motor deficits Assessment & Plan Assessment/Plan (1) Hypertensive emergency: (2) Acute encephalopathy: (3) ESRD on dialysis: PLAN: Plan Patient is an 82-year-old female who presented to [facility] ED on 07/16/2023 with confusion and decreased responsiveness. Hospital course as noted below. Patient discharged to SNF in stable condition on 07/20. 1. Acute metabolic encephalopathy, CVA rule out ? Suspected secondary to hypertensive emergency as noted below. CT brain without contrast on admit nonacute. Was noted that this improved back to her baseline by hospital day 2. Plan was to discharge patient to SNF on 07/20. However, discussed with patient's [id number] who is a remotely piloted vehicle controller in [facility] [employer] over the phone and she noted that the patient was very alert and oriented and even cooking for herself on the day of admission, and she is still significantly worse from her baseline from a mental status standpoint. Given patient's ongoing hypertension despite significant treatment as noted below, will order MRI brain for further evaluation of stroke. Stroke protocol also ordered as well. Notably had TTE on 07/15 that was benign. 2. Hypertensive emergency Suspected secondary to volume overload with need for increased volume removal with hemodialysis. Chest x-ray on admit nonacute. CT brain nonacute. Echo showed EF 65%, stage I diastolic dysfunction, severe concentric LV hypertrophy, no valve abnormalities. ? Nephrology followed. Treated with Cardene drip on admission with improvement. Dialyzed during admission as noted below. Was noted the patient's blood pressures had returned to normal on her home regimen, but on 07/20 she continues to have fairly elevated blood pressures despite being back on her home antihypertensive regimen. Stroke protocol ordered as above. Okay to continue home BP medications. 3. Concern for UTI ? UA on admit showed 500 leukocyte esterase, negative nitrates, 1+ bacteria. Urine culture with no growth. Empirically treated with 5-day course of ceftriaxone that was completed. 4. ESRD ? Nephrology following. On HD MWF, last HD session on 07/20. Appreciate nephrology assistance. Chronic medical conditions: ? Hypothyroidism: Continue home Synthroid. ? RA, Sjogren's disease: Stable. Continue home eyedrops. ? History of bladder cancer s/p transurethral resection of bladder tumor: Outpatient follow-up with urology as needed. ? GERD: Continue home PPI. DVT prophylaxis: SCDs CODE STATUS: Full code, unverified Expected disposition: TBD Total clinical time spent by myself addressing the patient's medical issues, reviewing all the data, and collaborating with patient's care team: 35 minutes. Charges/Coding Visit Charges Inpatient E&M: 31591 Subs Hosp L2 07/21/23 5307 <Electronically signed by León Ye DO> Cosigner Signature (if applicable): CC: ~ Signed [facility] Work Phone: 1(875) 403-756503-25-2024 Discharge summary Author León Ye [facility] July 21, 2023 12:15pm Note Date/Time July 21, 2023 12: 04pm [facility] Medical Records Department [address] [place] [address] Transfer to Extended Care MR#: [id number] Acct: [id number] Name: LAVINIA DURAND Rep #:[id number] : 1940 82 From: León vallecillo DO PCP: Dr. Osmani Morgan MD Status:A DM IN Certification of patient admission REQUIRED AT TIME OF ADMISSION. I CERTIFY THAT POST-HOSPITAL ECF SERVICES ARE REQUIRED TO BE GIVEN ON AN IN-PATIENT BASIS BECAUSE OF THE ABOVE NAMED PATIENT'S NEED FOR RETIREMENT CARE ON A CONTINUING BASIS FOR THE CONDITION(S) FOR WHICH HE/SHE WAS RECEIVING IN-PATIENT HOSPITAL SERVICES PRIOR TO HIS/HER TRANSFER TO THE ECF. 07/21/23 1215<Electronically signed by León Ye DO> Diet Diet Order/Speech Therapy: 07/16/23 10:00 Diet: Renal - General Is pt able to select menu?: Yes Routine Orders/Code Status O2 Frequency: PRN Keep PO Greater than or Equal to (%): 90 Code Status: Full Code Therapies Weight Bearing: Weight bearing as tolerated Physical Therapy: Eval and Treat Occupational Therapy: Eval and Treat Problem/Diagnosis (1) ESRD on dialysis: Status: Acute Code(s): N18.6 - End stage renal disease; Z99.2 - Dependence on renal dialysis (2) Hypertensive emergency: Status: Acute Code(s): I16.1 - Hypertensive emergency (3) Acute encephalopathy: Status: Acute Code(s): G93.40 - Encephalopathy, unspecified (4) Acute UTI: Status: Acute Code(s): N39.0 - Urinary tract infection, site not specified Plan Patient is an 82-year-old female who presented to [facility] ED on 07/16/2023 with confusion and decreased responsiveness. Hospital course as noted below. Patient discharged to SNF in stable condition on 07/20. 1. Acute metabolic encephalopathy, resolved ? Suspected secondary to hypertensive emergency as noted below. CT brain without contrast on admit nonacute. Improved hospital day 2. Treatment as noted below. 2. Hypertensive emergency Suspected secondary to volume overload with need for increased volume removal with hemodialysis. Chest x-ray on admit nonacute. CT brain nonacute. Echo showed EF 65%, stage I diastolic dysfunction, severe concentric LV hypertrophy, no valve abnormalities. ? Nephrology followed. Treated with Cardene drip on admission with improvement. Dialyzed during admission as noted below. Okay to continue home regimen on discharge of Coreg 12.5 mg twice daily, doxazosin 2 mg twice daily, Lasix 60 mg twice daily, hydralazine 50 mg 4 times daily, nifedipine 60 mg twice daily. 3. Concern for UTI ? UA on admit showed 500 leukocyte esterase, negative nitrates, 1+ bacteria. Urine culture with no growth. Empirically treated with 5-day course of ceftriaxone that was completed while inpatient. 4. ESRD ? Nephrology followed as above. On HD MWF. Last HD session on morning of 07/20 prior to discharge. Chronic medical conditions: ? Hypothyroidism: Continue home Synthroid. ? RA, Sjogren's disease: Stable. Continue home eyedrops. ? History of bladder cancer s/p transurethral resection of bladder tumor: Outpatient follow-up with urology as needed. ? GERD: Continue home PPI. Total clinical time spent by myself addressing the patient's medical issues, reviewing all the data, and collaborating with patient's care team: 35 minutes. Allergies/Procedures Done in Hospital Allergies adalimumab [From Humira] Allergy (Verified 06/05/23 13:37) Hives Procedures: Dialysis, EKG, Transthoracic Echo and - (Chest x-ray, CT brain without contrast) Type of Care/Length of Stay Estimated LOS: Convalescent Care Less Than 30 days Type of Care Needed: Skilled Rehab Potential: Fair Prognosis: Fair Additional Orders/Day of Discharge H&P will serve as current which was dated: 07/16/23 Day of Discharge: 07/21/23 Dietary and Speech Recommendations Dietitian Recommendations/Changes: will adjust diet to renal-general, will monitor intake at meals, wt, and labs and adjust diet/add ONS as indicated Discharge Plan Admission Admit Date/Time: 07/16/23 01:40 Primary Reason for Your Visit: acute encephalopathy, HTN emergency Attending Provider: León Ye Primary Care Provider: Osmani Morgan Consulting Providers: Anastacia Selby; Shu Ballesteros; Maria Del Rosario Cooper Instructions Patient Instructions: Controlling High Blood Pressure, ED UTIs Women Discharge Orders/Prescriptions Prescriptions: New nifedipine 60 mg Tablet Extended Release 24hr 60 mg PO BID Qty: 60 2RF Continued icosapent ethyl [Vascepa] 1 gram capsule 2 g PO BID Qty: 180 3RF doxazosin [Cardura] 2 mg tablet 2 mg PO BID 90 Days Qty: 180 3RF (DME) Juxta Lite See Rx Instructions .Route .MEDSUPPLY Qty: 2 4RF Rx Instructions: As directed lidocaine 5 % adhesive patch,medicated topical Patient Comments: apply 1 patch to affected area daily hydralazine 50 mg tablet 50 mg PO .QID 90 Days Qty: 360 1RF multivitamin Tablet 1 tab PO DAILY carvedilol 12.5 mg Tablet 12.5 mg PO BID Rx Instructions: must administer with a meal/food famotidine 40 mg Tablet 40 mg PO DAILY Vitamin C 1,000 mg Tablet Extended Release 1,000 mg PO DAILY levothyroxine 25 mcg Tablet 25 mcg PO DAILY folic acid 1 mg Tablet 1 mg PO DAILY Lumigan 0.01 % Drops 1 drp EACH EYE QHS pantoprazole 40 mg tablet,delayed release (DR/EC) 40 mg PO PRN furosemide [Lasix] 40 mg tablet 60 mg PO BID Rx Instructions: q acetaminophen [Tylenol] 325 mg Capsule 650 mg PO QHS hydrocodone-acetaminophen 5-325 mg tablet 1 tab PO Q6H PRN (Reason: pain) 3 Days Qty: 12 0RF nifedipine 60 mg tablet extended release 60 mg PO BID gabapentin 100 mg capsule 200 mg PO DAILY PRN (Reason: Neuropathy) 90 Days Qty: 90 1RF Rx Instructions: Daily Prn Discontinued amlodipine 10 mg tablet 10 mg PO DAILY Referrals / Follow Up: Osmani Morgan MD [Primary Care Provider] - Within 1 Week Disposition Disposition (needs filled in before D/C Order can be placed): Assisted Facility 07/21/23 1215 <Electronically signed by León Ye DO> Cosigner Signature (if applicable): CC: Dr. Anastacia Selby MD; Dr. Osmani Morgan MD; Dr. Shu Ballesteros MD; Dr. Maria Del Rosario Cooper MD ~ [facility] Work Phone: [phone] Progress note Author Shu Ballesteros [facility] July 21, 2023 11:32am Note Date/Time July 21, 2023 11: 32am [facility] Medical Records Department [address] [place] [address] Progress Note - Nephrology 07/21/23 1131 MR#: [id number] Acct: [id number] Name: LAVINIA DURAND Rep #:[id number] : 1940 82 From: Shu cline MD PCP: Dr. Osmani Morgan MD Status:A DM IN Location: [place] [address] Subjective Subjective No new events Objective Data Objective Data Vital Signs: Vital Signs Temp Pulse Resp BP Pulse Ox O2 Del Method 98.3 F 91 14 164/78 H 98 Room Air 07/21/23 07:30 07/21/23 10:30 07/21/23 10:30 07/21/23 10:30 07/21/23 10:30 07/21/23 10:30 Oxygen Delivery Method Room Air Weight: 44.2 kg Body Mass Index (BMI) 19.1 Intake & Output: Intake and Output for Last 24 Hours 07/19/23 07/20/23 07/21/23 23:59 23:59 23:59 Intake Total 1070 / 1070 530 / 530 Output Total 2420 / 2420 Balance 1070 / 1070 530 / 530 -2420 / -2420 Lab / Micro Data 07/21/23 06:17 07/21/23 06:17 Labs: Laboratory Results - last 24 hr 07/20/23 11:50: POC Glucose 124 H 07/20/23 17:12: POC Glucose 112 H 07/20/23 21:34: POC Glucose 140 H 07/21/23 06:05: POC Glucose 94 07/21/23 06:17: WBC 6.7, RBC 3.65 L, Hgb 10.3 L, Hct 33.0 L, MCV 90.4, MCH 28.2,MCHC 31.2 L, RDW Std Deviation 56.6 H, RDW Coeff of Wiliam 16.9 H, Plt Count 150, MPV 11.1, Immature Gran % (Auto) 1.100 H, Neut % (Auto) 69.3, Lymph % (Auto) 17.4 L, Newberry % (Auto) 9.0, Eos % (Auto) 2.7, Baso % (Auto) 0.5, Absolute Neuts (auto) 4.6, Absolute Lymphs (auto) 1.16, Nucleated RBC % 0, Sodium 134 L, Potassium 4.6, Chloride 101, Carbon Dioxide 22.0, Anion Gap 11, BUN 47 H, Creatinine 7.24 H, Estim Creat Clear Calc 4.23, Est GFR (MDRD) Af Amer 7 L, Est GFR (MDRD) Non-Af 6 L, BUN/Creatinine Ratio 6.5 L, Glucose 103, Calcium 9.2 07/21/23 10:34: POC Glucose 125 H Micro: Microbiology 07/15/23 23:28 Blood Culture (Wb) - Right Wrist Blood Culture - Final No growth in 5 days. 07/15/23 23:18 Blood Culture (Wb) - Anticubital Right Blood Culture - Final No growth in 5 days. 07/16/23 00:10 Urine, Clean Catch Urine Culture - Final Culture exhibits no growth. 07/16/23 00:16 Mucosa - Nose SARS-CoV-2, Influenza & RSV (PCR) - Final Rhythm Strip Rhythm Strip: Sinus Rhythm Rate: 95 Ectopy: None Physical Exam Narrative Alert and orient x 3, no apparent distress S1, S2, RRR Lung sounds clear anteriorly and posteriorly. No wheezes, rhonchi or rales noted Abdomen soft, nontender No edema Assessment & Plan Assessment/Plan (1) ESRD on dialysis: (2) Hypertensive emergency: (3) Acute encephalopathy: (4) Acute UTI: PLAN: Plan - ESRD on hemodialysis on a Friday at [facility], followed by Dr. Reyes. Patient underwent hemodialysis today and tolerated around 2.4 L fluid removal. -Hypertension. brain CT did not show any acute intracranial abnormality. chest x-ray which did not show any evidence of acute cardiopulmonary disease. Blood pressures have improved. Echo: Normal LV size, severe concentric left ventricular hypertrophy, EF 65%, stage I diastolic dysfunction, no pericardial effusion. - history of anemia of chronic disease, No need for CIERA at this time. 07/21/23 1132 <Electronically signed by Shu Ballesteros MD> Cosigner Signature (if applicable): CC: ~ Signed [facility] Work Phone: [phone]) [phone] Consult note Author Shu Ballesteros [facility] July 20, 2023 2:59pm Note Date/Time July 16, 2023 10: 33am [facility] Medical Records Department [address] [place] [address] Consultation - Nephrology 07/16/23 1024 MR#: [id number] Acct: [id number] Name: LAVINIA DURAND Rep #:[id number] : 1940 82 From: Annelise de jesus NP-C PCP: Dr. Osmani Morgan MD Status:A DM IN Location: [place] [address] Assessment & Plan Assessment/Plan (1) ESRD on dialysis: (2) Hypertensive emergency: (3) Acute encephalopathy: (4) Acute UTI: PLAN: Plan This is an 82-year-old female with past medical history significant for ESRD on hemodialysis on a Friday schedule last dialyzed Friday who was admitted to the hospital after presenting with confusion, also noted to be significantly hypertensive and started on Cardene drip. Brain CT did not show any acute intracranial abnormality. We will continue dialysis, plan for dialysis today over 3 hours and attempting around 2 L fluid removal as patient/blood pressure tolerates. Per patient's outpatient chronic hemodialysisorders, patient is possibly under her dry weight. Patient likely will have a new lowered dry weight by time of hospital discharge. Reviewed chest x-ray which did not show any evidence of acute cardiopulmonary disease. Blood pressures have improved. Echo pending (no echo in system). Patient is on IV fluids, she ate breakfast this morning, will stop IVF. Patient is on IV antibiotics for probable UTI, urine culture pending. Patient has a history of anemia of chronic disease, current hemoglobin 10.4. Will monitor hemoglobin trends. No need for CIREA at this time. Further orders forthcoming as hospitalization evolves, thank you for allowing us to participate in the care of Ladarius. HPI Consult Data Date of Consult: 07/16/23 HPI Narrative HPI Narrative: LAVINIA VELLANKI, is a 82 F with past medical history significant for ESRD on hemodialysis at [facility] followed by Dr. 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 Family was with patient at time of ER evaluation. Initially the emergency room patientwas noted to be significantly hypertensive with blood pressure 235/92, her whitecount was 15, initial troponin 59, urinalysis concerning for UTI, patient was started on Cardene drip and admitted to ICU for further evaluation and treatment. Nephrology consulted as patient has history of ESRD, for hemodialysis management. Patient was seen on hemodialysis this morning, she is alert and oriented. Patient reports last hemodialysis was Friday at [facility]. She denies any recent cramping with dialysis. [facility] Medical History Anemia Arthritis Bilateral lower extremity edema Cancer Cardiomyopathy CKD (chronic kidney disease) stage 5, GFR less than 15 ml/min Gastric reflux Glaucoma Heart failure Heart murmur Hx of fracture of wrist Hyperlipidemia Hypertension Hypothyroidism Kidney failure Lumbar spinal stenosis Macular degeneration Mitral regurgitation Osteoporosis Rheumatoid arthritis Shortness of breath on exertion Sjogren syndrome with inflammatory arthritis Thyroid disease Type 2 diabetes mellitus Vertigo Home Medications ascorbic acid (vitamin C) 1,000 mg tablet,extended release (Vitamin C ER) 1,000 mg PO DAILY 06/13/22 [History Last Taken Unknown] bimatoprost 0.01 % eye drops (Lumigan) 1 drp EACH EYE QHS 06/13/22 [History Last Taken Unknown] carvedilol 12.5 mg tablet 12.5 mg PO BID BLOOD PRESSURE 06/13/22 [History Last Taken 08/22/22 06:00] famotidine 40 mg tablet 40 mg PO DAILY 06/13/22 [History Last Taken Unknown] folic acid 1 mg tablet 1 mg PO DAILY 06/13/22 [History Last Taken Unknown] levothyroxine 25 mcg tablet 25 mcg PO DAILY 06/13/22 [History Last Taken 10/10/22] multivitamin 1 tab PO DAILY 06/13/22 [History Last Taken Unknown] Juxta Lite #2 ea 08/15/22 [Rx Last Taken Unknown] doxazosin 2 mg tablet (Cardura) 2 mg PO BID 3 months #180 tabs 08/15/22 [Rx Last Taken 08/22/22 06:00] furosemide 40 mg tablet (Lasix) 60 mg PO BID 08/15/22 [History Last Taken Unknown] icosapent ethyl 1 gram capsule (Vascepa) 2 g (2 x 1 gram) PO BID #180 caps 08/15/22 [Rx Last Taken Unknown] acetaminophen 325 mg capsule (Tylenol) 650 mg PO QHS 10/03/22 [History Last Taken Unknown] hydrocodone-acetaminophen 5-325mg 5mg-325mg 1 tab PO Q6H PRN pain 3 days #12 tabs 10/10/22 [Rx Last Taken Unknown] lidocaine 5 % topical patch patch topical 01/30/23 [History Last Taken Unknown] hydralazine 50 mg tablet 50 mg PO .QID 3 months #360 tabs 06/05/23 [Rx Last Taken Unknown] gabapentin 100 mg capsule 200 mg (2 x 100 mg) PO DAILY PRN Neuropathy 3 months #90 caps 06/27/23 [Rx Last Taken Unknown] pantoprazole 40 mg tablet,delayed release 40 mg PO PRN Indigestion 06/30/23 [History Last Taken Unknown] amlodipine 10 mg tablet 10 mg PO DAILY BLOOD PRESSURE 07/16/23 [History Last Taken Unknown] nifedipine 60 mg tablet,extended release 60 mg PO BID BLOOD PRESSURE 07/16/23 [History Last Taken Unknown] Allergy/AdvReac Type Severity Reaction Status Date / Time adalimumab [From Humira] Allergy Hives Verified 06/05/23 13:37 Family History Mother Heart disease Hypertension Osteoporosis Father CVA (cerebral vascular accident) Hypertension Surgical History H/O transurethral resection of bladder tumor (TURBT) History of bladder surgery History of nephrectomy Hx of colonoscopy S/P partial hysterectomy S/P total knee arthroplasty S/P vein stripping Social History household members: family Smoking Status: Never smoker alcohol intake: never substance use type: does not use ROS ROS Narrative As in HPI and past medical history Physical Exam Narrative Alert and orient x 3, no apparent distress S1, S2, RRR Lung sounds clear anteriorly and posteriorly. No wheezes, rhonchi or rales noted Abdomen soft, nontender No edema AV fistula accessed for hemodialysis Lab / Micro Data 07/16/23 04:50 07/16/23 04:50 Labs: Laboratory Results - last 24 hr 07/15/23 22:51: POC Glucose 196 H 07/15/23 23:18: WBC 15.0 H, RBC 4.28, Hgb 12.2, Hct 39.7, MCV 92.8, MCH 28.5, MCHC 30.7 L, RDW Std Deviation 60.3 H, RDW Coeff of Wiliam 18.0 H, Plt Count 175, MPV 10.8, Immature Gran % (Auto) 0.900, Neut % (Auto) 90.4 H, Lymph % (Auto) 5.3L, Newberry % (Auto) 3.1, Eos % (Auto) 0.1, Baso % (Auto) 0.2, Absolute Neuts (auto)13.6 H, Absolute Lymphs (auto) 0.79 L, Nucleated RBC % 0, Sodium 137, Potassium 4.9, Chloride 102, Carbon Dioxide 28.0, Anion Gap 7, BUN 31 H, Creatinine 4.92 H, Estim Creat Clear Calc 6.22, Est GFR (MDRD) Af Amer 11 L, Est GFR (MDRD) Non-Af 9 L, BUN/Creatinine Ratio 6.3 L, Glucose 186 H, Calcium 9.6, Total Bilirubin 0.30, AST 22, ALT 13, Alkaline Phosphatase 84, Troponin I High Sens 59 H, Total Protein 6.3 L, Albumin 2.8 L, Globulin 3.5, Albumin/Globulin Ratio 0.8 L, Ethyl Alcohol < 3.0 07/16/23 00:10: Urine Color Yellow, Urine Clarity Cloudy, Urine pH 9.0, Ur Specific [place] 1.015, Urine Protein 100 H, Urine Glucose (UA) 100 H, Urine Ketones 15 H, Urine Occult Blood 250 H, Urine Nitrite Negative, Urine Bilirubin Negative, Urine Urobilinogen Normal, Ur Leukocyte Esterase 500 H, Urine RBC 25-50 SEEN, Urine WBC 5-10 SEEN, Ur Squamous Epith Cells 5-10 SEEN, Urine Bacteria 1+, Urine Mucus 0 SEEN 07/16/23 01:31: Lactic Acid 0.6, Magnesium 2.3, Troponin I High Sens 49 07/16/23 04:50: WBC 14.1 H, RBC 3.62 L, Hgb 10.4 L, Hct 33.7 L, MCV 93.1, MCH 28.7, MCHC 30.9 L, RDW Std Deviation 61.1 H, RDW Coeff of Wiliam 17.9 H, Plt Count 147 L, MPV 9.8, Immature Gran % (Auto) 0.600, Neut % (Auto) 83.6 H, Lymph % (Auto) 10.3 L, Newberry % (Auto) 5.2, Eos % (Auto) 0.1, Baso % (Auto) 0.2, Absolute Neuts (auto) 11.8 H, Absolute Lymphs (auto) 1.46, Nucleated RBC % 0, Sodium 139,Potassium 4.6, Chloride 105, Carbon Dioxide 27.0, Anion Gap 7, BUN 32 H, Creatinine 4.89 H, Estim Creat Clear Calc 6.26, Est GFR (MDRD) Af Amer 11 L, EstGFR (MDRD) Non-Af 9 L, BUN/Creatinine Ratio 6.5 L, Glucose 98, Calcium 9.0, Total Bilirubin 0.30, AST 18, ALT 11 L, Alkaline Phosphatase 67, Troponin I HighSens 78 H, Total Protein 5.5 L, Albumin 2.4 L, Globulin 3.1, Albumin/Globulin Ratio 0.8 L, TSH 0.90 07/16/23 07:30: Ammonia < 10.0 L Micro: Microbiology 07/16/23 00:16 Mucosa - Nose SARS-CoV-2, Influenza & RSV (PCR) - Final ABG Data ABG results: ABG 07/16/23 07:19 Specimen Type ART Sample Site Not entered pH 7.44 Bicarbonate Actual 25.6 Total CO2 27 Base Excess 1 O2 Saturation 94 L ABG pCO2 38.1 ABG pO2 68 L O2 Delivery Device Room Air Vent Mode Not entered Rhythm Strip Rhythm Strip: Sinus Rhythm Rate: 95 Ectopy: None Imaging Radiology Impression Brain CT 07/15/23 23:02 IMPRESSION: No acute intracranial abnormality. Electronically Signed: Edmar Sams DO at 0:39 EDT , Chest X-Ray 07/15/23 23:47 IMPRESSION: No evidence of acute cardiopulmonary disease. Electronically Signed: Edmar Sams at 0:35 EDT , 07/16/23 1033 <Electronically signed by Annelise PADRON> Cosigner Signature (if applicable): 07/20/23 1459 <Electronically signed by Shu Ballesteros MD> CC: Dr. Anastacia Selby MD; Dr. Osmani Morgan MD; Dr. Shu Ballesteros MD~ Signed [facility] Work Phone: 1(562) 822-420603-24-2024 Progress note Author Shu Ballesteros [facility] July 20, 2023 2:59pm Note Date/Time July 17, 2023 10: 43am [facility] Medical Records Department [address] [place] [id number] Progress Note - Nephrology 07/17/23 1038 MR#: [id number] Acct: [id number] Name: LAVINIA DURAND Rep #:[id number] : 1940 82 From: Annelise PADRON PCP: Dr. Osmani Morgan MD Status:A DM IN Location: [facility] [id number] Subjective Subjective Sitting in chair. Eating breakfast. Reports feeling better today. Denies any complaints. Objective Data Objective Data Vital Signs: Vital Signs Temp Pulse Resp BP Pulse Ox O2 Del Method 98 F 96 20 H 150/66 H 96 Room Air 07/17/23 09:00 07/17/23 10:26 07/17/23 09:00 07/17/23 10:26 07/17/23 10:13 07/17/23 09:00 Oxygen Delivery Method Room Air Weight: 48.2 kg Body Mass Index (BMI) 20.8 Intake & Output: Intake and Output for Last 24 Hours 07/15/23 07/16/23 07/17/23 23:59 23:59 23:59 Intake Total 3136.25 / 3136.25 50 / 50 Output Total 1180 / 1180 Balance 1955.25 / 1955.25 50 / 50 Lab / Micro Data 07/17/23 08:21 07/17/23 08:21 Labs: Laboratory Results - last 24 hr 07/16/23 11:54: POC Glucose 121 H 07/16/23 16:35: POC Glucose 143 H 07/16/23 21:31: POC Glucose 113 H 07/17/23 07:31: POC Glucose 100 07/17/23 08:21: WBC 7.0, RBC 3.43 L, Hgb 9.8 L, Hct 32.0 L, MCV 93.3, MCH 28.6, MCHC 30.6 L, RDW Std Deviation 61.5 H, RDW Coeff of Wiliam 17.9 H, Plt Count TNP, MPV 11.2, Immature Gran % (Auto) 0.300, Neut % (Auto) 64.5, Lymph % (Auto) 21.7,Newberry % (Auto) 9.2, Eos % (Auto) 4.0, Baso % (Auto) 0.3, Absolute Neuts (auto) 4.5, Absolute Lymphs (auto) 1.51, Nucleated RBC % 0, Platelet Estimate SLT DEC, Sodium 137, Potassium 4.2, Chloride 107, Carbon Dioxide 25.0, Anion Gap 5, BUN 28 H, Creatinine 4.31 H, Estim Creat Clear Calc 7.10, Est GFR (MDRD) Af Amer 13 L, Est GFR (MDRD) Non-Af 10 L, BUN/Creatinine Ratio 6.5 L, Glucose 101, Calcium 8.8 Micro: Microbiology 07/16/23 00:16 Mucosa - Nose SARS-CoV-2, Influenza & RSV (PCR) - Final Radiography Diagnostic Testing: Radiology Impression Echocardiogram 07/16/23 02:41 Interpretation Summary Normal LV size. Severe concentric left ventricular hypertrophy. Left ventricular systolic function is normal. The left ventricular ejection fraction is 65 %. Stage 1 diastolic dysfunction. Bubble contrast study negative for right to left interatrial shunt. The global longitudinal strain = -17.4 % (normal). Ordering Physician: Anastacia Selby Referring Physician: Osmani Morgan Performed By: Laura Trinidad, MICHAEL, RVT Rhythm Strip Rhythm Strip: Sinus Rhythm Rate: 95 Ectopy: None Physical Exam Narrative Alert and orient x 3, no apparent distress S1, S2, RRR Lung sounds clear anteriorly and posteriorly. No wheezes, rhonchi or rales noted Abdomen soft, nontender No edema Assessment & Plan Assessment/Plan (1) ESRD on dialysis: (2) Hypertensive emergency: (3) Acute encephalopathy: (4) Acute UTI: PLAN: Plan - ESRD on hemodialysis on a Friday at [facility], followed by Dr. Reyes. Tolerated dialysis yesterday. No acute indication for [employer] today. Next dialysis will be tomorrow. -Patient was significantly hypertensive and started on Cardene drip. Brain CT did not show any acute intracranial abnormality. chest x-ray which did not show any evidence of acute cardiopulmonary disease. Blood pressures have improved. Echo: Normal LV size, severe concentric left ventricular hypertrophy, EF 65%, stage I diastolic dysfunction, no pericardial effusion. Blood pressures much improved, off Cardene drip and on home antihypertensives. - history of anemia of chronic disease, current hemoglobin 9.8. Will monitor hemoglobin trends. No need for CIERA at this time. -On IV antibiotics for possible UTI. Urine culture pending. Blood cultures from 07/14 pending. 07/17/23 1043 <Electronically signed by Annelise PADRON> Cosigner Signature (if applicable): 07/20/23 1459 <Electronically signed by Shu Ballesteros MD> CC: ~ Signed [facility] Work Phone: 1(907) 248-558903-24-2024 Progress note Author Shu Ballesteros [facility] July 20, 2023 2:59pm Note Date/Time July 18, 2023 11: 05am [facility] Medical Records Department [address] [place] [address] Progress Note - Nephrology 07/18/23 1101 MR#: [id number] Acct: [id number] Name: LAVINIA DURAND Rep #:[id number] : 1940 82 From: Annelise de jesus [employer] PCP: Dr. Osmani Morgan MD Status:A DM IN Location: [place] [address] Subjective Subjective Seen and examined after dialysis today. Tolerated treatment well with around 2.3 L fluid removal. No overnight events Objective Data Objective Data Vital Signs: Vital Signs Temp Pulse Resp BP Pulse Ox O2 Del Method 97.6 F L 76 14 193/80 H 98 Room Air 07/18/23 06:45 07/18/23 09:45 07/18/23 09:45 07/18/23 09:45 07/18/23 09:45 07/18/23 09:45 Oxygen Delivery Method Room Air Weight: 46.2 kg Body Mass Index (BMI) 20.0 Intake & Output: Intake and Output for Last 24 Hours 07/16/23 07/17/23 07/18/23 23:59 23:59 23:59 Intake Total 3136.25 / 3136.25 580 / 580 Output Total 1180 / 1180 0 / 0 2019 Balance 1956.25 / 1956.25 580 / 580 -2019 / Lab / Micro Data 07/18/23 07:05 07/18/23 07:05 Labs: Laboratory Results - last 24 hr 07/17/23 12:07: POC Glucose 218 H 07/17/23 16:40: POC Glucose 89 07/17/23 20:42: POC Glucose 110 H 07/18/23 05:47: POC Glucose 109 H 07/18/23 07:05: WBC 6.7, RBC 3.70 L, Hgb 10.5 L, Hct 34.3 L, MCV 92.7, MCH 28.4,MCHC 30.6 L, RDW Std Deviation 58.8 H, RDW Coeff of Wiliam 17.3 H, Plt Count 158, MPV 11.5, Immature Gran % (Auto) 1.000 H, Neut % (Auto) 65.0, Lymph % (Auto) 21.9, Newberry % (Auto) 7.3, Eos % (Auto) 4.2, Baso % (Auto) 0.6, Absolute Neuts (auto) 4.4, Absolute Lymphs (auto) 1.47, Nucleated RBC % 0, Sodium 138, Potassium 4.3, Chloride 106, Carbon Dioxide 24.0, Anion Gap 8, BUN 34 H, Creatinine 4.49 H, Estim Creat Clear Calc 6.82, Est GFR (MDRD) Af Amer 12 L, EstGFR (MDRD) Non-Af 10 L, BUN/Creatinine Ratio 7.6 L, Glucose 105, Calcium 9.2 Micro: Microbiology 07/15/23 23:28 Blood Culture (Wb) - Right Wrist Blood Culture - Preliminary No growth in 48 hours. 07/15/23 23:18 Blood Culture (Wb) - Anticubital Right Blood Culture - Preliminary No growth in 48 hours. 07/16/23 00:16 Mucosa - Nose SARS-CoV-2, Influenza & RSV (PCR) - Final Rhythm Strip Rhythm Strip: Sinus Rhythm Rate: 95 Ectopy: None Physical Exam Narrative Alert and orient x 3, no apparent distress S1, S2, RRR Lung sounds clear anteriorly and posteriorly. No wheezes, rhonchi or rales noted Abdomen soft, nontender No edema Assessment & Plan Assessment/Plan (1) ESRD on dialysis: (2) Hypertensive emergency: (3) Acute encephalopathy: (4) Acute UTI: PLAN: Plan - ESRD on hemodialysis on a Friday at [facility], followed by Dr. Reyes. Patient underwent hemodialysis today and tolerated around 2.3 L fluid removal. Had been attempting for more fluid removal but due to low blood pressures during dialysis ultrafiltration amount was backed off. Likely next dialysis will be Friday. -Patient was significantly hypertensive and started on Cardene drip on admission. Brain CT did not show any acute intracranial abnormality. chest x-ray which did not show any evidence of acute cardiopulmonary disease. Blood pressures have improved. Echo: Normal LV size, severe concentric left ventricular hypertrophy, EF 65%, stage I diastolic dysfunction, no pericardial effusion. Blood pressures had improved, off Cardene drip and on home antihypertensives. Blood pressures slightly elevated this morning however am antihypertensives were held this morning for dialysis. - history of anemia of chronic disease, current hemoglobin 10.5. Will monitor hemoglobin trends. No need for CIERA at this time. -On IV antibiotics for possible UTI. Urine culture pending. Blood cultures so far no growth to date. - discharge planning in progress possibly to [facility] with dialysis at [facility]. 07/18/23 1105 <Electronically signed by Annelise PADRON> Cosigner Signature (if applicable): 07/20/23 1459 <Electronically signed by Shu Ballesteros MD> CC: ~ Signed [facility] Work Phone: 1(528) 634-611603-24-2024 Progress note Author Maria Del Rosario [facility] July 20, 2023 2:50pm Note Date/Time July 20, 2023 10: 54[facility] Medical Records Department [address] [place] [address] Progress Note 07/20/23 1053 MR#: [id number] Acct: [id number] Name: LAVINIA DURAND Rep #:[id number] : 1940 82 From: Maria Del Rosario Cooper MD PCP: Dr. Osmani Morgan MD Status:A DM IN Location: [place] [address] Subjective Subjective Patient seen and examined. She had no active complaints and had an uneventful night. Review of systems otherwise negative. Blood pressure still remains elevated. She is awaiting discharge. Objective Data Objective Data Vital Signs: Vital Signs Temp Pulse Resp BP Pulse Ox O2 Del Method 98.0 F 82 18 160/72 H 97 Room Air 07/20/23 08:26 07/20/23 08:29 07/20/23 08:26 07/20/23 08:26 07/20/23 08:26 07/20/23 08:26 Oxygen Delivery Method Room Air Weight: 101 lb 13.657 oz Body Mass Index (BMI) 20.0 Intake & Output: Intake and Output for Last 24 Hours 07/18/23 07/19/23 07/20/23 23:59 23:59 23:59 Intake Total 170 / 170 1070 / 1070 Output Total 2019 Balance -1850 / -1850 1070 / 1070 Lab / Micro Data 07/20/23 05:37 07/20/23 05:37 Labs: Laboratory Results - last 24 hr 07/19/23 16:42: POC Glucose 78 07/19/23 21:33: POC Glucose 95 07/20/23 05:37: WBC 6.0, RBC 3.72 L, Hgb 10.5 L, Hct 34.2 L, MCV 91.9, MCH 28.2,MCHC 30.7 L, RDW Std Deviation 58.8 H, RDW Coeff of Wiliam 17.4 H, Plt Count 152, MPV 10.9, Immature Gran % (Auto) 1.200 H, Neut % (Auto) 67.2, Lymph % (Auto) 17.7 L, Newberry % (Auto) 10.2 H, Eos % (Auto) 3.0, Baso % (Auto) 0.7, Absolute Neuts (auto) 4.0, Absolute Lymphs (auto) 1.06, Nucleated RBC % 0, Sodium 134 L, Potassium 4.4, Chloride 102, Carbon Dioxide 23.0, Anion Gap 9, BUN 39 H, Creatinine 6.23 H, Estim Creat Clear Calc 4.91, Est GFR (MDRD) Af Amer 8 L, Est GFR (MDRD) Non-Af 7 L, BUN/Creatinine Ratio 6.3 L, Glucose 94, Calcium 9.4 07/20/23 06:05: POC Glucose 86 Micro: Microbiology 07/16/23 00:10 Urine, Clean Catch Urine Culture - Final Culture exhibits no growth. 07/15/23 23:28 Blood Culture (Wb) - Right Wrist Blood Culture - Preliminary No growth in 48 hours. 07/15/23 23:18 Blood Culture (Wb) - Anticubital Right Blood Culture - Preliminary No growth in 48 hours. 07/16/23 00:16 Mucosa - Nose SARS-CoV-2, Influenza & RSV (PCR) - Final Rhythm Strip Rhythm Strip: Sinus Rhythm Rate: 95 Ectopy: None Physical Exam Const alert, oriented x3, no apparent distress and well nourished General Appearance: cooperative and well developed HEENT normocephalic, head/scalp atraumatic, moist oral mucous membranes and oropharynxnormal Eyes PERRL and EOMs intact bilaterally Neck no lymphadenopathy and supple Lymph Lymphatic: no lymphadenopathy noted and no lymphedema noted Resp normal respiratory effort, normal air movement and clear to auscultation bilaterally Cardio regular rate, regular rhythm, S1 normal heart sound, S2 normal heart sound and no murmurs GI normal to inspection, nondistended, normoactive bowel sounds, soft to palpation,non-tender and non-distended Extremity normal capillary refill, no clubbing, cyanosis or edema and no calf tenderness General Extremity: no tenderness to palpation of joints or extremities Skin General Skin Exam: no breakdown Neuro CN's II-XII intact bilaterally, no focal motor deficits, no sensory deficits noted and deep tendon reflexes 2+ bilaterally Motor Exam: strength 5/5 throughout and general weakness Psych thought process normal and cooperative Appearance: appropriate Assessment & Plan Assessment/Plan (1) Acute UTI: (2) ESRD on dialysis: (3) Hypertensive emergency: PLAN: Plan #Acute encephalopathy due to UTI and hypertensive emergency * now off nicardipine drip * on oral BP meds-carvedilol and nifedipine * urine cultures pending; blood culture also pendinh * Altered mental status has also resolved. * #UTI: as above #Hypertensive emergency: * resolved. Off nicardipine drip. On carvedilol 25mg bid as well as nifedipine 60 mg twice daily and doxazosin as well as lasix * IV hydralazine as needed. * Blood pressure still remains elevated. IV hydralazine prn. Dialysis tomorrow will help with fluid removal and also help with the BP * #ESRD: on hemodialysis MWF. Nephrology on board. # Hypothyroidism: On Synthroid #Rheumatoid arthritis: stable #Sjogren's disease: stable #History of bladder cancer: S/p transurethral resection of the bladder tumor. Follow-up with Dr. Soliman on outpatient basis GERD: On PPI #DVT prophylaxis: Heparin Disposition: Patient awaiting discharge to SNF. SNF to confirm with nephrology that she can have dialysis there. Charges/Coding Visit Charges Inpatient E&M: 16445 Subs Hosp L2 07/20/23 2690 <Electronically signed by Maria Del Rosario Cooper MD> Maria Del Rosario Cooper MD Cosigner Signature (if applicable): CC: ~ Signed [facility] Work Phone: 1(389) 489-791503-24-2024 Progress note Author Anastacia Selby [facility] March 24th, 2024 1:03am Note Date/Time July 20, 2023 1:0 3am [facility] Medical Records Department [address] [place] [address] Progress Note - Hospitalist 07/20/23 010 MR#: [id number] Acct: [id number] Name: LAVINIA DURAND Rep #:[id number] : 1940 82 From: Anastacia Selby MD PCP: Dr. Osmani Morgan MD Status:A DM IN Location: [place] [address] Hospitalist Note Patient with elevated BP, not responsive to hydralazine. Will dose with IV BB and continue to monitor. 07/20/23102 <Electronically signed by Anastacia Selby MD> Cosigner Signature (if applicable): CC: ~ Signed [facility] Work Phone: 1(160) 943-340403-23-2024 Progress note Author Maria Del Rosario [facility] July 19, 2023 2:45pm Note Date/Time July 19, 2023 2:4 5pm [facility] Medical Records Department [address] [place] [address] Progress Note 07/19/23 1443 MR#: [id number] Acct: [id number] Name: LAVINIA DURAND Rep #:[id number] : 1940 82 From: Maria Del Rosario Cooper MD PCP: Dr. Osmani Morgan MD Status:A DM IN Location: [place] [address] Subjective Subjective Patient seen and examined. She had no active complaints. Plan was for her to be discharged today but discharge had to be canceled as her usp had notyet cleared with nephrology that she could have dialysis. Review of symptoms otherwise negative. Blood pressure does remain elevated. Objective Data Objective Data Vital Signs: Vital Signs Temp Pulse Resp BP Pulse Ox O2 Del Method 98.4 F 85 16 189/74 H 97 Room Air 07/19/23 14:37 07/19/23 14:37 07/19/23 14:37 07/19/23 14:37 07/19/23 14:37 07/19/23 14:37 Oxygen Delivery Method Room Air Weight: 101 lb 13.657 oz Body Mass Index (BMI) 20.0 Intake & Output: Intake and Output for Last 24 Hours 07/17/23 07/18/23 07/19/23 23:59 23:59 23:59 Intake Total 580 / 580 170 / 170 120 / 120 Output Total 0 / 0 2019 Balance 580 / 580 -1850 / -1850 120 / 120 Lab / Micro Data 07/19/23 06:25 07/19/23 06:25 Labs: Laboratory Results - last 24 hr 07/18/23 16:06: POC Glucose 110 H 07/18/23 22:02: POC Glucose 96 07/19/23 05:28: POC Glucose 83 07/19/23 06:25: WBC 5.6, RBC 3.85 L, Hgb 10.9 L, Hct 35.7 L, MCV 92.7, MCH 28.3,MCHC 30.5 L, RDW Std Deviation 59.5 H, RDW Coeff of Wilima 17.5 H, Plt Count 141 L,MPV 11.3, Immature Gran % (Auto) 0.900, Neut % (Auto) 68.3, Lymph % (Auto) 18.3 L, Newberry % (Auto) 8.6, Eos % (Auto) 3.4, Baso % (Auto) 0.5, Absolute Neuts (auto)3.8, Absolute Lymphs (auto) 1.02, Nucleated RBC % 0, Sodium 137, Potassium 4.3, Chloride 106, Carbon Dioxide 24.0, Anion Gap 7, BUN 32 H, Creatinine 4.79 H, Estim Creat Clear Calc 6.39, Est GFR (MDRD) Af Amer 11 L, Est GFR (MDRD) Non-Af 9 L, BUN/Creatinine Ratio 6.7 L, Glucose 100, Calcium 9.5 Micro: Microbiology 07/16/23 00:10 Urine, Clean Catch Urine Culture - Final Culture exhibits no growth. 07/15/23 23:28 Blood Culture (Wb) - Right Wrist Blood Culture - Preliminary No growth in 48 hours. 07/15/23 23:18 Blood Culture (Wb) - Anticubital Right Blood Culture - Preliminary No growth in 48 hours. 07/16/23 00:16 Mucosa - Nose SARS-CoV-2, Influenza & RSV (PCR) - Final Rhythm Strip Rhythm Strip: Sinus Rhythm Rate: 95 Ectopy: None Physical Exam Const alert, oriented x3, no apparent distress and well nourished General Appearance: cooperative and well developed HEENT normocephalic, head/scalp atraumatic, moist oral mucous membranes and oropharynxnormal Eyes PERRL and EOMs intact bilaterally Neck no lymphadenopathy and supple Lymph Lymphatic: no lymphadenopathy noted and no lymphedema noted Resp normal respiratory effort, normal air movement and clear to auscultation bilaterally Cardio regular rate, regular rhythm, S1 normal heart sound, S2 normal heart sound and no murmurs GI normal to inspection, nondistended, normoactive bowel sounds, soft to palpation,non-tender and non-distended Extremity normal capillary refill, no clubbing, cyanosis or edema and no calf tenderness General Extremity: no tenderness to palpation of joints or extremities Skin General Skin Exam: no breakdown Neuro CN's II-XII intact bilaterally, no focal motor deficits, no sensory deficits noted and deep tendon reflexes 2+ bilaterally Motor Exam: strength 5/5 throughout and general weakness Psych thought process normal and cooperative Appearance: appropriate Assessment & Plan Assessment/Plan (1) Acute UTI: (2) ESRD on dialysis: (3) Hypertensive emergency: PLAN: Plan #Acute encephalopathy due to UTI and hypertensive emergency * now off nicardipine drip * on oral BP meds-carvedilol and nifedipine * urine cultures pending; blood culture also pendin * Altered mental status has also resolved. * #UTI: as above #Hypertensive emergency: * resolved. Off nicardipine drip. On carvedilol 12.5 mg twice daily as well as nifedipine 60 mg twice daily. * IV hydralazine as needed. Blood pressure elevated today. Will monitor and adjust BP meds as needed. #ESRD: on hemodialysis MWF. Nephrology on board. # Hypothyroidism: On Synthroid #Rheumatoid arthritis: stable #Sjogren's disease: stable #History of bladder cancer: S/p transurethral resection of the bladder tumor. Follow-up with Dr. Soliman on outpatient basis GERD: On PPI #DVT prophylaxis: Heparin Disposition: Patient awaiting discharge to SNF. SNF to confirm with nephrology that she can have dialysis there. Charges/Coding Visit Charges Inpatient E&M: 53138 Subs Hosp L2 07/19/23 6936 <Electronically signed by Maria Del Rosario Cooper MD> Maria Del Rosario Cooper MD Cosigner Signature (if applicable): CC: ~ Signed [facility] Work Phone: 1(583) 492-371103-23-2024 Discharge summary Author Maria Del Rosario Cooper [facility] July 19, 2023 11:27am Note Date/Time July 19, 2023 11: 27am [facility] Medical Records Department [address] [place] [address] Transfer to [facility] MR#: [id number] Acct: [id number] Name: LAVINIA DURAND Rep #:[id number] : 1940 82 From: Maria Del Rosario Cooper MD PCP: Dr. Osmani Morgan MD Status:A DM IN Certification of patient admission REQUIRED AT TIME OF ADMISSION. I CERTIFY THAT POST-HOSPITAL ECF SERVICES ARE REQUIRED TO BE GIVEN ON AN IN-PATIENT BASIS BECAUSE OF THE ABOVE NAMED PATIENT'S NEED FOR RETIREMENT CARE ON A CONTINUING BASIS FOR THE CONDITION(S) FOR WHICH HE/SHE WAS RECEIVING IN-PATIENT HOSPITAL SERVICES PRIOR TO HIS/HER TRANSFER TO THE F. 07/19/23 1127<Electronically signed by Maria Del Rosario Cooper MD> Diet Diet Order/Speech Therapy: 07/16/23 10:00 Diet: Renal - General Is pt able to select menu?: Yes Routine Orders/Code Status Enema Type: Fleetz Enema Frequency: Daily PRN Suppository Type: Dulcolax 10mg Suppository Frequency: Daily PRN O2 Frequency: PRN Keep PO Greater than or Equal to (%): 90 Therapies Weight Bearing: Weight bearing as tolerated Physical Therapy: Eval and Treat Occupational Therapy: Eval and Treat Problem/Diagnosis (1) Acute UTI: Status: Acute Code(s): N39.0 - Urinary tract infection, site not specified (2) ESRD on dialysis: Status: Acute Code(s): N18.6 - End stage renal disease; Z99.2 - Dependence on renal dialysis (3) Hypertensive emergency: Status: Acute Code(s): I16.1 - Hypertensive emergency Plan #Acute encephalopathy due to UTI and hypertensive emergency * now off nicardipine drip * on oral BP meds-carvedilol * urine cultures pending; blood culture also pendin * Altered mental status has also resolved. * #UTI: as above #Hypertensive emergency: resolved. Off nicardipine drip. On carvedilol 12.5 mg twice daily. IV hydralazine as needed #ESRD: on hemodialysis MWF. Nephrology consuled. She had dialysis today # Hypothyroidism: On Synthroid #Rheumatoid arthritis: stable #Sjogren's disease: stable #History of bladder cancer: S/p transurethral resection of the bladder tumor. Follow-up with Dr. Soliman on outpatient basis GERD: On PPI #DVT prophylaxis: Heparin Disposition: Patient possible to prison facility so for discharge tomorrow. Allergies/Procedures Done in Hospital Allergies adalimumab [From Humira] Allergy (Verified 06/05/23 13:37) Hives Procedures: Dialysis Type of Care/Length of Stay Estimated LOS: Convalescent Care Less Than 30 days Type of Care Needed: Skilled Rehab Potential: Fair Prognosis: Fair Additional Orders/Day of Discharge Day of Discharge: 07/19/23 Dietary and Speech Recommendations Dietitian Recommendations/Changes: will adjust diet to renal-general, will monitor intake at meals, wt, and labs and adjust diet/add ONS as indicated Discharge Plan Admission Admit Date/Time: 07/16/23 01:40 Primary Reason for Your Visit: acute encephalopahy, UTI, hypertensive emergency Attending Provider: Maria Del Rosario Cooper Primary Care Provider: Osmani Morgan Consulting Providers: Anastacia Selby; Shu Ballesteros Instructions Patient Instructions: Controlling High Blood Pressure, ED UTIs Women Discharge Orders/Prescriptions Prescriptions: New nifedipine 60 mg Tablet Extended Release 24hr 60 mg PO BID Qty: 60 2RF Continued icosapent ethyl [Vascepa] 1 gram capsule 2 g PO BID Qty: 180 3RF doxazosin [Cardura] 2 mg tablet 2 mg PO BID 90 Days Qty: 180 3RF (DME) Juxta Lite See Rx Instructions .Route .MEDSUPPLY Qty: 2 4RF Rx Instructions: As directed lidocaine 5 % adhesive patch,medicated topical Patient Comments: apply 1 patch to affected area daily hydralazine 50 mg tablet 50 mg PO .QID 90 Days Qty: 360 1RF multivitamin Tablet 1 tab PO DAILY carvedilol 12.5 mg Tablet 12.5 mg PO BID Rx Instructions: must administer with a meal/food famotidine 40 mg Tablet 40 mg PO DAILY Vitamin C 1,000 mg Tablet Extended Release 1,000 mg PO DAILY levothyroxine 25 mcg Tablet 25 mcg PO DAILY folic acid 1 mg Tablet 1 mg PO DAILY Lumigan 0.01 % Drops 1 drp EACH EYE QHS pantoprazole 40 mg tablet,delayed release (DR/EC) 40 mg PO PRN furosemide [Lasix] 40 mg tablet 60 mg PO BID Rx Instructions: q acetaminophen [Tylenol] 325 mg Capsule 650 mg PO QHS hydrocodone-acetaminophen 5-325 mg tablet 1 tab PO Q6H PRN (Reason: pain) 3 Days Qty: 12 0RF nifedipine 60 mg tablet extended release 60 mg PO BID gabapentin 100 mg capsule 200 mg PO DAILY PRN (Reason: Neuropathy) 90 Days Qty: 90 1RF Rx Instructions: Daily Prn Discontinued amlodipine 10 mg tablet 10 mg PO DAILY Referrals / Follow Up: Osmani Morgan MD [Primary Care Provider] - Within 1 Week Disposition Disposition (needs filled in before D/C Order can be placed): Assisted Facility 07/19/23 1127 <Electronically signed by Maria Del Rosario Cooper MD> Cosigner Signature (if applicable): CC: Dr. Anastacia Selby MD; Dr. Osmani Morgan MD; Dr. Shu Ballesteros MD~ [facility] Work Phone: 1(473) 692-419103-22-2024 Progress note Author [facility] July 18, 2023 12:57pm Note Date/Time July 18, 2023 12: 49pm [facility] Medical Records Department [address] [place] [address] Progress Note 07/18/23 1244 MR#: [id number] Acct: [id number] Name: LAVINIA DURAND Rep #:[id number] : 1940 82 From: Maria Del Rosario Cooper MD PCP: Dr. Osmani Morgan MD Status:A DM IN Location: [place] [address] Subjective Subjective Patient seen and examined. She had no complaints apart from feeling cold. She was having dialysis. Review of systems otherwise negative. She has not decidedto go to a usp and is awaiting placement. Objective Data Objective Data Vital Signs: Vital Signs Temp Pulse Resp BP Pulse Ox O2 Del Method 97.6 F L 76 14 193/80 H 98 Room Air 07/18/23 06:45 07/18/23 10:57 07/18/23 09:45 07/18/23 09:45 07/18/23 09:45 07/18/23 09:45 Oxygen Delivery Method Room Air Weight: 101 lb 13.657 oz Body Mass Index (BMI) 20.0 Intake & Output: Intake and Output for Last 24 Hours 07/16/23 07/17/23 07/18/23 23:59 23:59 23:59 Intake Total 3136.25 / 3136.25 580 / 580 Output Total 1180 / 1180 0 / 0 2019 Balance 1956.25 / 1956.25 580 / 580 -2019 Lab / Micro Data 07/18/23 07:05 07/18/23 07:05 Labs: Laboratory Results - last 24 hr 07/17/23 16:40: POC Glucose 89 07/17/23 20:42: POC Glucose 110 H 07/18/23 05:47: POC Glucose 109 H 07/18/23 07:05: WBC 6.7, RBC 3.70 L, Hgb 10.5 L, Hct 34.3 L, MCV 92.7, MCH 28.4,MCHC 30.6 L, RDW Std Deviation 58.8 H, RDW Coeff of Wiliam 17.3 H, Plt Count 158, MPV 11.5, Immature Gran % (Auto) 1.000 H, Neut % (Auto) 65.0, Lymph % (Auto) 21.9, Newberry % (Auto) 7.3, Eos % (Auto) 4.2, Baso % (Auto) 0.6, Absolute Neuts (auto) 4.4, Absolute Lymphs (auto) 1.47, Nucleated RBC % 0, Sodium 138, Potassium 4.3, Chloride 106, Carbon Dioxide 24.0, Anion Gap 8, BUN 34 H, Creatinine 4.49 H, Estim Creat Clear Calc 6.82, Est GFR (MDRD) Af Amer 12 L, EstGFR (MDRD) Non-Af 10 L, BUN/Creatinine Ratio 7.6 L, Glucose 105, Calcium 9.2 07/18/23 11:13: POC Glucose 98 Micro: Microbiology 07/16/23 00:10 Urine, Clean Catch Urine Culture - Final Culture exhibits no growth. 07/15/23 23:28 Blood Culture (Wb) - Right Wrist Blood Culture - Preliminary No growth in 48 hours. 07/15/23 23:18 Blood Culture (Wb) - Anticubital Right Blood Culture - Preliminary No growth in 48 hours. 07/16/23 00:16 Mucosa - Nose SARS-CoV-2, Influenza & RSV (PCR) - Final Rhythm Strip Rhythm Strip: Sinus Rhythm Rate: 95 Ectopy: None Physical Exam Const alert, oriented x3, no apparent distress and well nourished General Appearance: cooperative and well developed HEENT normocephalic, head/scalp atraumatic, moist oral mucous membranes and oropharynxnormal Eyes PERRL and EOMs intact bilaterally Neck no lymphadenopathy and supple Lymph Lymphatic: no lymphadenopathy noted and no lymphedema noted Resp normal respiratory effort, normal air movement and clear to auscultation bilaterally Cardio regular rate, regular rhythm, S1 normal heart sound, S2 normal heart sound and no murmurs GI normal to inspection, nondistended, normoactive bowel sounds, soft to palpation,non-tender and non-distended Extremity normal capillary refill, no clubbing, cyanosis or edema and no calf tenderness General Extremity: no tenderness to palpation of joints or extremities Skin General Skin Exam: no breakdown Neuro CN's II-XII intact bilaterally, no focal motor deficits, no sensory deficits noted and deep tendon reflexes 2+ bilaterally Motor Exam: strength 5/5 throughout and general weakness Psych thought process normal and cooperative Appearance: appropriate Assessment & Plan Assessment/Plan (1) Acute UTI: (2) ESRD on dialysis: (3) Hypertensive emergency: PLAN: Plan #Acute encephalopathy due to UTI and hypertensive emergency * now off nicardipine drip * on oral BP meds-carvedilol * urine cultures pending; blood culture also pendin * Altered mental status has also resolved. * #UTI: as above #Hypertensive emergency: resolved. Off nicardipine drip. On carvedilol 12.5 mg twice daily. IV hydralazine as needed #ESRD: on hemodialysis MWF. Nephrology consuled. She had dialysis today # Hypothyroidism: On Synthroid #Rheumatoid arthritis: stable #Sjogren's disease: stable #History of bladder cancer: S/p transurethral resection of the bladder tumor. Follow-up with Dr. Soliman on outpatient basis GERD: On PPI #DVT prophylaxis: Heparin Disposition: Patient possible to prison facility so for discharge tomorrow. Charges/Coding Visit Charges Inpatient E&M: 15357 Subs Hosp L2 07/18/23 1257 <Electronically signed by Maria Del Rosario Cooper MD> Maria Del Rosario Cooper MD Cosigner Signature (if applicable): CC: ~ Signed [facility] Work Phone: 1(717) 232-994003-21-2024 Progress note Author Maria Del Rosario [facility] July 17, 2023 12:35pm Note Date/Time July 17, 2023 12: 17pm [facility] Medical Records Department [address] [place] [address] Progress Note 07/17/23 1215 MR#: [id number] Acct: [id number] Name: LAVINIA DURAND Rep #:[id number] : 1940 82 From: Maria Del Rosario Cooper MD PCP: Dr. Osmani Morgan MD Status:A DM IN Location: ICU CVICU20 2-1 Subjective Subjective Patient seen and examined. She felt much better today. Her blood pressure has come down significantly. She has been switched to oral BP meds. She says she has not really ambulated much with physical therapy. Review of systems otherwise negative. Objective Data Objective Data Vital Signs: Vital Signs Temp Pulse Resp BP Pulse Ox O2 Del Method 98 F 96 20 H 150/66 H 96 Room Air 07/17/23 09:00 07/17/23 10:26 07/17/23 09:00 07/17/23 10:26 07/17/23 10:13 07/17/23 09:00 Oxygen Delivery Method Room Air Weight: 106 lb 4.205 oz Body Mass Index (BMI) 20.8 Intake & Output: Intake and Output for Last 24 Hours 07/15/23 07/16/23 07/17/23 23:59 23:59 23:59 Intake Total 3136.25 / 3136.25 410 / 410 Output Total 1180 / 1180 0 / 0 Balance 6.25 / 1955.25 410 / 410 Lab / Micro Data 07/17/23 08:21 07/17/23 08:21 Labs: Laboratory Results - last 24 hr 07/16/23 16:35: POC Glucose 143 H 07/16/23 21:31: POC Glucose 113 H 07/17/23 07:31: POC Glucose 100 07/17/23 08:21: WBC 7.0, RBC 3.43 L, Hgb 9.8 L, Hct 32.0 L, MCV 93.3, MCH 28.6, MCHC 30.6 L, RDW Std Deviation 61.5 H, RDW Coeff of Wiliam 17.9 H, Plt Count TNP, MPV 11.2, Immature Gran % (Auto) 0.300, Neut % (Auto) 64.5, Lymph % (Auto) 21.7,Newberry % (Auto) 9.2, Eos % (Auto) 4.0, Baso % (Auto) 0.3, Absolute Neuts (auto) 4.5, Absolute Lymphs (auto) 1.51, Nucleated RBC % 0, Platelet Estimate SLT DEC, Sodium 137, Potassium 4.2, Chloride 107, Carbon Dioxide 25.0, Anion Gap 5, BUN 28 H, Creatinine 4.31 H, Estim Creat Clear Calc 7.10, Est GFR (MDRD) Af Amer 13 L, Est GFR (MDRD) Non-Af 10 L, BUN/Creatinine Ratio 6.5 L, Glucose 101, Calcium 8.8 Micro: Microbiology 07/16/23 00:16 Mucosa - Nose SARS-CoV-2, Influenza & RSV (PCR) - Final Radiography Diagnostic Testing: Radiology Impression Echocardiogram 07/16/23 02:41 Interpretation Summary Normal LV size. Severe concentric left ventricular hypertrophy. Left ventricular systolic function is normal. The left ventricular ejection fraction is 65 %. Stage 1 diastolic dysfunction. Bubble contrast study negative for right to left interatrial shunt. The global longitudinal strain = -17.4 % (normal). Ordering Physician: Anastacia Selby Referring Physician: Osmani Morgan Performed By: Laura Trinidad, RDCS, RVT Rhythm Strip Rhythm Strip: Sinus Rhythm Rate: 95 Ectopy: None Physical Exam Const alert, oriented x3, no apparent distress and well nourished General Appearance: cooperative and well developed HEENT normocephalic, head/scalp atraumatic, moist oral mucous membranes and oropharynxnormal Eyes PERRL and EOMs intact bilaterally Neck no lymphadenopathy and supple Lymph Lymphatic: no lymphadenopathy noted and no lymphedema noted Resp normal respiratory effort, normal air movement and clear to auscultation bilaterally Cardio regular rate, regular rhythm, S1 normal heart sound, S2 normal heart sound and no murmurs GI normal to inspection, nondistended, normoactive bowel sounds, soft to palpation,non-tender and non-distended Extremity normal capillary refill, no clubbing, cyanosis or edema and no calf tenderness General Extremity: no tenderness to palpation of joints or extremities Skin General Skin Exam: no breakdown Neuro CN's II-XII intact bilaterally, no focal motor deficits, no sensory deficits noted and deep tendon reflexes 2+ bilaterally Motor Exam: strength 5/5 throughout and general weakness Psych thought process normal and cooperative Appearance: appropriate Assessment & Plan Assessment/Plan (1) Acute UTI: (2) ESRD on dialysis: (3) Hypertensive emergency: PLAN: Plan #Acute encephalopathy due to UTI and hypertensive emergency * now off nicardipine drip * on oral BP meds-carvedilol * urine cultures pending; blood culture also pendin * Altered mental status has also resolved. * #UTI: as above #Hypertensive emergency: resolved. Off nicardipine drip. On carvedilol 12.5 mg twice daily. IV hydralazine as needed #ESRD: on hemodialysis MWF. Nephrology consuled. She had dialysis today # Hypothyroidism: On Synthroid #Rheumatoid arthritis: stable #Sjogren's disease: stable #History of bladder cancer: S/p transurethral resection of the bladder tumor. Follow-up with Dr. Soliman on outpatient basis GERD: On PPI #DVT prophylaxis: Heparin Disposition: anticipate dc tomorrow if she remains stable and does well with PT/OT. Charges/Coding Visit Charges Inpatient E&M: 68888 Subs Hosp L2 07/17/23 1235 <Electronically signed by Maria Del Rosario Cooper MD> Maria Del Rosario Cooper MD Cosigner Signature (if applicable): CC: ~ Signed ADDENDUM by Dr. Maria Del Rosario Cooper MD on 07/17/23 at 1235 Addendum Of note she is also on nifedipine 60 mg twice daily. 07/17/23 1235 <Electronically signed by Maria Del Rosario rapp MD> Date _ Maria Del Rosario Cooper MD Cosigner Signature (if applicable): Date cc: ~* Signed [facility] Work Phone: 1(123) 639-113803-21-2024 Progress note Author Anthony Bowers [facility] July 17, 2023 7:29am Note Date/Time July 17, 2023 7:0 8am [facility] Medical Records Department [address] [place] [address] Progress Note - Bond Analyst 07/17/23 0705 MR#: [id number] Acct: [id number] Name: LAVINIA DURAND Rep #:[id number] : 1940 82 From: Antohny Bowers DO PCP: Dr. Osmani Morgan MD Status:A DM IN Location: ICU CVICU20 2-1 Assessment & Plan Assessment/Plan (1) Hypertensive emergency: (2) Acute UTI: (3) ESRD on dialysis: (4) Acute encephalopathy: PLAN: Plan RECOMMENDATIONS: 1. Continue home antihypertensive regimen. 2. Continue antimicrobials, pending finalized culture results. 3. Dialysis support per nephrology recommendations. 4. Encourage incentive spirometer use and mobilize patient as tolerated. 5. The patient is medically stable for transfer out of the intensive care unit. 6. Will sign off from a critical care perspective. Please call with any additional questions. IMPRESSIONS: 1. Acute cystitis Continue antimicrobials, pending finalized culture results. 2. Encephalopathy Resolved. Most likely metabolic in etiology and related to underlying urinary tract source of infection. 3. Hypertensive emergency Resolved. The patient presented with systolic blood pressures in excess of 200 mmHg. Although the patient initially required nicardipine, her blood pressures have since normalized after receiving dialysis and being restarted on her home antihypertensive regimen. 4. End-stage renal disease on hemodialysis Nephrology is following to assist with hemodialysis needs. 5. History of anemia of chronic disease/macular degeneration/hypothyroidism/rheumatoid arthritis/Sjogren's Complicates care, management, recovery and prognosis. Continue home medicationsas indicated. Physical therapy to work with the patient. This note was generated with [employer] dictation software. It may contain incorrectwords, spelling, and punctuation that were not noted in checking the note beforesigning. Subjective Subjective The patient was seen and examined at the bedside this morning. Events from the last 24 hours have been reviewed. The patient is currently afebrile, hemodynamically stable and maintaining appropriate oxygen saturations on room air. The patient's blood pressures have normalized and she has been weaned fromCardene. She tolerated dialysis yesterday. The patient has no specific complaints this morning. Objective Data Objective Data The patient's most recent lab work, culture data and imaging studies have all been personally reviewed. Blood and urine cultures are pending. Vital Signs: Vital Signs Temp Pulse Resp BP Pulse Ox O2 Del Method 98.7 F 74 21 H 133/54 H 97 Room Air 07/17/23 06:00 07/17/23 07:00 07/17/23 07:00 07/17/23 07:00 07/17/23 07:00 07/17/23 07:00 Oxygen Delivery Method Room Air Weight: 106 lb 4.205 oz Body Mass Index (BMI) 20.8 Intake & Output: Intake and Output for Last 24 Hours 07/15/23 07/16/23 07/17/23 23:59 23:59 23:59 Intake Total 3136.25 / 3136.25 50 / 50 Output Total 1180 / 1180 Balance 6.25 / 1955.25 50 / 50 Lab / Micro Data Attestation: I reviewed the patient's lab results. 07/16/23 04:50 07/16/23 04:50 Labs: Laboratory Results - last 24 hr 07/16/23 04:50: TSH 0.90 07/16/23 07:30: Ammonia < 10.0 L 07/16/23 11:54: POC Glucose 121 H 07/16/23 16:35: POC Glucose 143 H 07/16/23 21:31: POC Glucose 113 H Micro: Microbiology 07/16/23 00:16 Mucosa - Nose SARS-CoV-2, Influenza & RSV (PCR) - Final ABG Data ABG results: ABG 07/16/23 07:19 Specimen Type ART Sample Site Not entered pH 7.44 Bicarbonate Actual 25.6 Total CO2 27 Base Excess 1 O2 Saturation 94 L ABG pCO2 38.1 ABG pO2 68 L O2 Delivery Device Room Air Vent Mode Not entered Radiography Diagnostic Testing: Radiology Impression Echocardiogram 07/16/23 02:41 Interpretation Summary Normal LV size. Severe concentric left ventricular hypertrophy. Left ventricular systolic function is normal. The left ventricular ejection fraction is 65 %. Stage 1 diastolic dysfunction. Bubble contrast study negative for right to left interatrial shunt. The global longitudinal strain = -17.4 % (normal). Ordering Physician: Anastacia Selby Referring Physician: Osmani Morgan Performed By: Laura Trinidad, MICHAEL, RVT Rhythm Strip Rhythm Strip: Sinus Rhythm Rate: 95 Ectopy: None Physical Exam Const alert and no apparent distress General Appearance: cooperative HEENT normocephalic, head/scalp atraumatic and moist oral mucous membranes Eyes PERRL, EOMs intact bilaterally and conjunctivae normal Neck supple General: trachea midline Chest inspection of chest normal Resp normal respiratory effort Auscultation: Negative for rales, rhonchi or wheezes Cardio regular rate and regular rhythm Heart Sounds: murmur GI normal to inspection, nondistended, normoactive bowel sounds Extremity no clubbing, cyanosis or edema Skin no rashes or lesions noted Neuro CN's II-XII intact bilaterally and no focal motor deficits Psych cooperative and affect normal Charges/Coding Visit Charges Inpatient E&M: 66297 Subs Hosp L2 07/17/23 0729 <Electronically signed by Anthony Bowers DO> Cosigner Signature (if applicable): CC: ~ Signed [facility] Work Phone: 1(596) 276-393203-20-2024 Progress note Author Maria Del Rosario Cooper [facility] July 16, 2023 4:28pm Note Date/Time July 16, 2023 3:2 9pm [facility] Medical Records Department [address] [facility] [place] [address] Progress Note 07/16/23 1527 MR#: [id number] Acct: [id number] Name: LAVINIA DURAND Rep #:[id number] : 1940 82 From: Maria Del Rosario Cooper MD PCP: Dr. Osmani Morgan MD Status:A DM IN Location: ICU CVICU20 2-1 Subjective Subjective Patient seen and examined. She had no active complaints. She was admitted with acomplaint of altered mental status. She was found to have a UTI and was in hypertensive emergency. She is on nicardipine drip and is on IV antibiotics. Shehad no complaints this morning. Review of systems is otherwise negative. Objective Data Objective Data Vital Signs: Vital Signs Temp Pulse Resp BP Pulse Ox O2 Del Method 97.1 F L 64 20 H 146/54 H 96 Room Air 07/16/23 14:00 07/16/23 14:00 07/16/23 14:00 07/16/23 14:00 07/16/23 14:00 07/16/23 14:00 Oxygen Delivery Method Room Air Weight: 104 lb 7.986 oz Body Mass Index (BMI) 20.5 Intake & Output: Intake and Output for Last 24 Hours 07/14/23 07/15/23 07/16/23 23:59 23:59 23:59 Intake Total 2316.25 / 2316.25 Output Total 1180 / 1180 Balance 1136.25 / 1136.25 Lab / Micro Data 07/16/23 04:50 07/16/23 04:50 Labs: Laboratory Results - last 24 hr 07/15/23 22:51: POC Glucose 196 H 07/15/23 23:18: WBC 15.0 H, RBC 4.28, Hgb 12.2, Hct 39.7, MCV 92.8, MCH 28.5, MCHC 30.7 L, RDW Std Deviation 60.3 H, RDW Coeff of Wiliam 18.0 H, Plt Count 175, MPV 10.8, Immature Gran % (Auto) 0.900, Neut % (Auto) 90.4 H, Lymph % (Auto) 5.3L, Newberry % (Auto) 3.1, Eos % (Auto) 0.1, Baso % (Auto) 0.2, Absolute Neuts (auto)13.6 H, Absolute Lymphs (auto) 0.79 L, Nucleated RBC % 0, Sodium 137, Potassium 4.9, Chloride 102, Carbon Dioxide 28.0, Anion Gap 7, BUN 31 H, Creatinine 4.92 H, Estim Creat Clear Calc 6.22, Est GFR (MDRD) Af Amer 11 L, Est GFR (MDRD) Non-Af 9 L, BUN/Creatinine Ratio 6.3 L, Glucose 186 H, Calcium 9.6, Total Bilirubin 0.30, AST 22, ALT 13, Alkaline Phosphatase 84, Troponin I High Sens 59 H, Total Protein 6.3 L, Albumin 2.8 L, Globulin 3.5, Albumin/Globulin Ratio 0.8 L, Ethyl Alcohol < 3.0 07/16/23 00:10: Urine Color Yellow, Urine Clarity Cloudy, Urine pH 9.0, Ur Specific [place] 1.015, Urine Protein 100 H, Urine Glucose (UA) 100 H, Urine Ketones 15 H, Urine Occult Blood 250 H, Urine Nitrite Negative, Urine Bilirubin Negative, Urine Urobilinogen Normal, Ur Leukocyte Esterase 500 H, Urine RBC 25-50 SEEN, Urine WBC 5-10 SEEN, Ur Squamous Epith Cells 5-10 SEEN, Urine Bacteria 1+, Urine Mucus 0 SEEN 07/16/23 01:31: Lactic Acid 0.6, Magnesium 2.3, Troponin I High Sens 49 07/16/23 04:50: WBC 14.1 H, RBC 3.62 L, Hgb 10.4 L, Hct 33.7 L, MCV 93.1, MCH 28.7, MCHC 30.9 L, RDW Std Deviation 61.1 H, RDW Coeff of Wiliam 17.9 H, Plt Count 147 L, MPV 9.8, Immature Gran % (Auto) 0.600, Neut % (Auto) 83.6 H, Lymph % (Auto) 10.3 L, Newberry % (Auto) 5.2, Eos % (Auto) 0.1, Baso % (Auto) 0.2, Absolute Neuts (auto) 11.8 H, Absolute Lymphs (auto) 1.46, Nucleated RBC % 0, Sodium 139,Potassium 4.6, Chloride 105, Carbon Dioxide 27.0, Anion Gap 7, BUN 32 H, Creatinine 4.89 H, Estim Creat Clear Calc 6.26, Est GFR (MDRD) Af Amer 11 L, EstGFR (MDRD) Non-Af 9 L, BUN/Creatinine Ratio 6.5 L, Glucose 98, Calcium 9.0, Total Bilirubin 0.30, AST 18, ALT 11 L, Alkaline Phosphatase 67, Troponin I HighSens 78 H, Total Protein 5.5 L, Albumin 2.4 L, Globulin 3.1, Albumin/Globulin Ratio 0.8 L, TSH 0.90 07/16/23 07:30: Ammonia < 10.0 L 07/16/23 11:54: POC Glucose 121 H Micro: Microbiology 07/16/23 00:16 Mucosa - Nose SARS-CoV-2, Influenza & RSV (PCR) - Final ABG Data ABG results: ABG 07/16/23 07:19 Specimen Type ART Sample Site Not entered pH 7.44 Bicarbonate Actual 25.6 Total CO2 27 Base Excess 1 O2 Saturation 94 L ABG pCO2 38.1 ABG pO2 68 L O2 Delivery Device Room Air Vent Mode Not entered Radiography Diagnostic Testing: Radiology Impression Brain CT 07/15/23 23:02 IMPRESSION: No acute intracranial abnormality. Electronically Signed: Edmar Sams DO at 0:39 EDT , Chest X-Ray 07/15/23 23:47 IMPRESSION: No evidence of acute cardiopulmonary disease. Electronically Signed: Edmar Sams DO at 0:35 EDT , Rhythm Strip Rhythm Strip: Sinus Rhythm Rate: 95 Ectopy: None Physical Exam Const alert, oriented x3, no apparent distress and well nourished General Appearance: cooperative and well developed HEENT normocephalic, moist oral mucous membranes and oropharynx normal Eyes PERRL and EOMs intact bilaterally Neck no lymphadenopathy and supple Lymph Lymphatic: no lymphadenopathy noted and no lymphedema noted Resp normal respiratory effort, normal air movement and clear to auscultation bilaterally Cardio regular rate, regular rhythm, S1 normal heart sound, S2 normal heart sound and no murmurs GI normal to inspection, nondistended, normoactive bowel sounds, soft to palpation,non-tender and non-distended Extremity normal capillary refill, no clubbing, cyanosis or edema and no calf tenderness General Extremity: no tenderness to palpation of joints or extremities Skin General Skin Exam: no breakdown Neuro CN's II-XII intact bilaterally, no focal motor deficits, no sensory deficits noted and deep tendon reflexes 2+ bilaterally Motor Exam: strength 5/5 throughout and general weakness Psych thought process normal and cooperative Appearance: appropriate Assessment & Plan Assessment/Plan (1) Acute UTI: (2) ESRD on dialysis: (3) Hypertensive emergency: PLAN: Plan #Acute encephalopathy due to UTI and hypertensive emergency * mentation is now clear. She is on nicardipine drip * on iV ceftriaxone * urine cultures pending * #UTI: as above #Hypertensive emergency: BP was >200 systolic. On nicardipine drip. Will wean off as tolerated #ESRD: on hemodialysis MWF. Nephrology consuled. She had dialysis today # Hypothyroidism: On Synthroid #Rheumatoid arthritis: #Sjogren's disease: #History of bladder cancer: S/p transurethral resection of the bladder tumor. Follow-up with Dr. Carballo on outpatient basis GERD: On PPI #DVT prophylaxis: Heparin Charges/Coding Visit Charges Inpatient E&M: 30743 Subs Hosp L2 07/16/23 5412 <Electronically signed by Maria Del Rosario Cooper MD> Maria Del Rosario Cooper MD Cosigner Signature (if applicable): CC: ~ Signed [facility] Work Phone: 1(894) 595-721703-20-2024 Consult note Author Anthony Bowers [facility] July 16, 2023 9:19am Note Date/Time July 16, 2023 7:1 2am [facility] Medical Records Department [address] [place] [address] Consultation - Bond Analyst 07/16/23 0706 MR#: [id number] Acct: [id number] Name: LAVINIA DURAND Rep #:[id number] : 1940 82 From: Anthony Bowers PCP: Dr. Osmani Morgan MD Status:A DM IN Location: ICU CVICU20 2-1 Assessment & Plan Assessment/Plan (1) Hypertensive emergency: (2) Acute UTI: (3) ESRD on dialysis: (4) Acute encephalopathy: PLAN: Plan RECOMMENDATIONS: 1. Continue Cardene for blood pressure control and restart home antihypertensives when feasible. 2. Check ABG, TSH and ammonia. 3. Continue antimicrobials, pending finalized culture results. 4. Dialysis support per nephrology recommendations. 5. Dietary advancement as tolerated. IMPRESSIONS: 1. Acute cystitis Continue antimicrobials, pending finalized culture results. 2. Encephalopathy Most likely metabolic in etiology and related to underlying urinary tract sourceof infection. The patient's mental status appears to be improving with supportive care. CT head was unremarkable. Will check ABG, TSH and ammonia level. Otherwise, continue current supportive care. 3. Hypertensive emergency The patient presented with systolic blood pressures in excess of 200 mmHg. She does appear to be on a significant amount of antihypertensives at her baseline. For now, the patient will be continued on a Cardene infusion to maintain appropriate blood pressure control, with plans to reintroduce her home antihypertensive regimen, when feasible. 4. End-stage renal disease on hemodialysis Nephrology consultation is pending to assist with hemodialysis needs. 5. History of anemia of chronic disease/macular degeneration/hypothyroidism/rheumatoid arthritis/Sjogren's Complicates care, management, recovery and prognosis. Continue home medicationsas indicated. The patient will eventually require PT/OT evaluations. This note was generated with Loop[employer]ation software. It may contain incorrectwords, spelling, and punctuation that were not noted in checking the note beforesigning. HPI Consult Data Date of Consult: 07/16/23 HPI Narrative Reason for Consultation: Altered mental status, urinary tract infection HPI Narrative: The patient is an 82-year-old female, with a history as outlined below, who presented to the emergency department on July 14 via EMS after being found by her [id number], unresponsive, while sitting on the toilet. The patient hasa known history of anemia of chronic disease, rheumatoid arthritis/Sjogren's syndrome, chronic kidney disease, hypothyroidism and macular degeneration. On presentation to the emergency department, the patient was noted to be febrilewith a temperature of 99.3 ?F. She was notably hypertensive with a blood pressure of 235/92 mmHg. Laboratory evaluation revealed an elevated white bloodcell count of 15,000. Chemistry profile was notable for a BUN of 31 and creatinine of 4.92. Lactate was within normal limits. Troponin was mildly elevated at 59. Urine analysis was positive for leukocyte esterase and 1+ urinebacteria. CT head was unremarkable. Chest x-ray demonstrated no acute cardiopulmonary process. Influenza, RSV and COVID screens were negative. Bloodand urine cultures were collected. The patient was initiated on a Cardene infusion and started on antimicrobials. She was subsequently admitted to the medical intensive care unit for further management. [facility] Medical History Anemia Arthritis Bilateral lower extremity edema Cancer Cardiomyopathy CKD (chronic kidney disease) stage 5, GFR less than 15 ml/min Gastric reflux Glaucoma Heart failure Heart murmur Hx of fracture of wrist Hyperlipidemia Hypertension Hypothyroidism Kidney failure Lumbar spinal stenosis Macular degeneration Mitral regurgitation Osteoporosis Rheumatoid arthritis Shortness of breath on exertion Sjogren syndrome with inflammatory arthritis Thyroid disease Type 2 diabetes mellitus Vertigo Home Medications ascorbic acid (vitamin C) 1,000 mg tablet,extended release (Vitamin C ER) 1,000 mg PO DAILY 06/13/22 [History Last Taken Unknown] bimatoprost 0.01 % eye drops (Lumigan) 1 drp EACH EYE QHS 06/13/22 [History Last Taken Unknown] carvedilol 12.5 mg tablet 12.5 mg PO BID 06/13/22 [History Last Taken 08/22/22 06:00] famotidine 40 mg tablet 40 mg PO DAILY 06/13/22 [History Last Taken Unknown] folic acid 1 mg tablet 1 mg PO DAILY 06/13/22 [History Last Taken Unknown] levothyroxine 25 mcg tablet 25 mcg PO DAILY 06/13/22 [History Last Taken 10/10/22] multivitamin 1 tab PO DAILY 06/13/22 [History Last Taken Unknown] Juxta Lite #2 ea 08/15/22 [Rx Last Taken Unknown] doxazosin 2 mg tablet (Cardura) 2 mg PO BID 3 months #180 tabs 08/15/22 [Rx Last Taken 08/22/22 06:00] furosemide 40 mg tablet (Lasix) 60 mg PO BID 08/15/22 [History Last Taken Unknown] icosapent ethyl 1 gram capsule (Vascepa) 2 g (2 x 1 gram) PO BID #180 caps 08/15/22 [Rx Last Taken Unknown] acetaminophen 325 mg capsule (Tylenol) 650 mg PO QHS 10/03/22 [History Last Taken Unknown] hydrocodone-acetaminophen 5-325mg 5mg-325mg 1 tab PO Q6H PRN pain 3 days #12 tabs 10/10/22 [Rx Last Taken Unknown] lidocaine 5 % topical patch patch topical 01/30/23 [History Last Taken Unknown] amlodipine 5 mg tablet 5 mg PO BID 3 months #180 tabs 06/05/23 [Rx Last Taken Unknown] hydralazine 50 mg tablet 50 mg PO .QID 3 months #360 tabs 06/05/23 [Rx Last Taken Unknown] gabapentin 100 mg capsule 200 mg (2 x 100 mg) PO DAILY PRN Neuropathy 3 months #90 caps 06/27/23 [Rx Last Taken Unknown] nifedipine 30 mg tablet,extended release 24 hr 30 mg PO BID 06/30/23 [History Last Taken Unknown] pantoprazole 40 mg tablet,delayed release 40 mg PO PRN Indigestion 06/30/23 [History Last Taken Unknown] Allergy/AdvReac Type Severity Reaction Status Date / Time adalimumab [From Humira] Allergy Hives Verified 06/05/23 13:37 Family History Mother Heart disease Hypertension Osteoporosis Father CVA (cerebral vascular accident) Hypertension Surgical History H/O transurethral resection of bladder tumor (TURBT) History of bladder surgery History of nephrectomy Hx of colonoscopy S/P partial hysterectomy S/P total knee arthroplasty S/P vein stripping Social History household members: family Smoking Status: Never smoker alcohol intake: never substance use type: does not use ROS Review of Systems ROS Unobtainable: due to mental status Physical Exam Const Constitutional Narrative: Somnolent and confused. Arouses to verbal stimulation but then falls quickly back to sleep. General Appearance: ill appearing HEENT normocephalic and head/scalp atraumatic Eyes PERRL, EOMs intact bilaterally and conjunctivae normal Neck supple General: trachea midline Chest inspection of chest normal Resp normal respiratory effort Auscultation: Negative for rales, rhonchi or wheezes Cardio regular rate and regular rhythm Heart Sounds: murmur GI normal to inspection, nondistended, normoactive bowel sounds Extremity no clubbing, cyanosis or edema Skin no rashes or lesions noted Neuro CN's II-XII intact bilaterally and no focal motor deficits Psych Mood & Affect: flat affect Lab / Micro Data 07/16/23 04:50 07/16/23 04:50 Labs: Laboratory Results - last 24 hr 07/15/23 22:51: POC Glucose 196 H 07/15/23 23:18: WBC 15.0 H, RBC 4.28, Hgb 12.2, Hct 39.7, MCV 92.8, MCH 28.5, MCHC 30.7 L, RDW Std Deviation 60.3 H, RDW Coeff of Wiliam 18.0 H, Plt Count 175, MPV 10.8, Immature Gran % (Auto) 0.900, Neut % (Auto) 90.4 H, Lymph % (Auto) 5.3L, Newberry % (Auto) 3.1, Eos % (Auto) 0.1, Baso % (Auto) 0.2, Absolute Neuts (auto)13.6 H, Absolute Lymphs (auto) 0.79 L, Nucleated RBC % 0, Sodium 137, Potassium 4.9, Chloride 102, Carbon Dioxide 28.0, Anion Gap 7, BUN 31 H, Creatinine 4.92 H, Estim Creat Clear Calc 6.22, Est GFR (MDRD) Af Amer 11 L, Est GFR (MDRD) Non-Af 9 L, BUN/Creatinine Ratio 6.3 L, Glucose 186 H, Calcium 9.6, Total Bilirubin 0.30, AST 22, ALT 13, Alkaline Phosphatase 84, Troponin I High Sens 59 H, Total Protein 6.3 L, Albumin 2.8 L, Globulin 3.5, Albumin/Globulin Ratio 0.8 L, Ethyl Alcohol < 3.0 07/16/23 00:10: Urine Color Yellow, Urine Clarity Cloudy, Urine pH 9.0, Ur Specific [place] 1.015, Urine Protein 100 H, Urine Glucose (UA) 100 H, Urine Ketones 15 H, Urine Occult Blood 250 H, Urine Nitrite Negative, Urine Bilirubin Negative, Urine Urobilinogen Normal, Ur Leukocyte Esterase 500 H, Urine RBC 25-50 SEEN, Urine WBC 5-10 SEEN, Ur Squamous Epith Cells 5-10 SEEN, Urine Bacteria 1+, Urine Mucus 0 SEEN 07/16/23 01:31: Lactic Acid 0.6, Magnesium 2.3, Troponin I High Sens 49 07/16/23 04:50: WBC 14.1 H, RBC 3.62 L, Hgb 10.4 L, Hct 33.7 L, MCV 93.1, MCH 28.7, MCHC 30.9 L, RDW Std Deviation 61.1 H, RDW Coeff of Wiliam 17.9 H, Plt Count 147 L, MPV 9.8, Immature Gran % (Auto) 0.600, Neut % (Auto) 83.6 H, Lymph % (Auto) 10.3 L, Newberry % (Auto) 5.2, Eos % (Auto) 0.1, Baso % (Auto) 0.2, Absolute Neuts (auto) 11.8 H, Absolute Lymphs (auto) 1.46, Nucleated RBC % 0, Sodium 139,Potassium 4.6, Chloride 105, Carbon Dioxide 27.0, Anion Gap 7, BUN 32 H, Creatinine 4.89 H, Estim Creat Clear Calc 6.26, Est GFR (MDRD) Af Amer 11 L, EstGFR (MDRD) Non-Af 9 L, BUN/Creatinine Ratio 6.5 L, Glucose 98, Calcium 9.0, Total Bilirubin 0.30, AST 18, ALT 11 L, Alkaline Phosphatase 67, Troponin I HighSens 78 H, Total Protein 5.5 L, Albumin 2.4 L, Globulin 3.1, Albumin/Globulin Ratio 0.8 L Micro: Microbiology 07/16/23 00:16 Mucosa - Nose SARS-CoV-2, Influenza & RSV (PCR) - Final Rhythm Strip Rhythm Strip: Sinus Rhythm Rate: 95 Ectopy: None Imaging Radiology Impression Brain CT 07/15/23 23:02 IMPRESSION: No acute intracranial abnormality. Electronically Signed: Edmar Sams DO at 0:39 EDT , Chest X-Ray 07/15/23 23:47 IMPRESSION: No evidence of acute cardiopulmonary disease. Electronically Signed: Edmar Sams DO at 0:35 EDT , Charges/Coding Visit Charges Inpatient E&M: 03274 Init Hosp L3 07/16/23 0919 <Electronically signed by Anthony Bowers DO> Cosigner Signature (if applicable): CC: Dr. Jc Agosto MD; Dr. Anastacia Selby MD; Dr. Hany Braxton MD; Dr. Anthony Bowers DO; Dr. Osmani Morgan MD; Dr. Blu Martinez MD; Dr. Song Gomez MD; Dr. Shu Ballesteros MD; Dr. Kitty Chamberlain MD; Dr. Jeremie Durand MD; Dr. Zhao Garcia MD; Dr. Blane Brand MD; Dr. Parminder Arita MD;Dr. Alfredito Olivas MD; Dr. Robyn Fuentes MD~ Signed [facility] Work Phone: [phone]) 335-660103-20-2024 History and physical note Author Anastacia Selby [facility] July 16, 2023 2:52am Note Date/Time July 16, 2023 1:2 9am [facility] Medical Records Department [address] [place], [place] [address] [place] [address] H&P Exam - Hospitalist 07/16/23 0129 MR#: [id number] Acct: [id number] Name: LAVINIA DURAND Rep #:[id number] : 1940 82 From: Anastacia Selby MD PCP: Dr. Osmani Morgan MD Status:A DM IN Location: ICU CVICU20 2-1 HPI - General General Date of Admission: 07/16/23 Date of Service: 07/16/23 Chief Complaint: Confusion, increased urinary frequency. 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 Workup in the ED included Tmax 99.3 initially with most recent repeat T98.4, heart rate 100 initially with most recent repeat 88, BP initially 235/92 with most recent repeat 197/77, respiratory rate 21, 96% on room air, CBC with WBC 15, hemoglobin 12.2, platelet 175 with left shift and lymphopenia, CMP with BUN/creatinine 31/4.92, glucose 186, troponin initial 59, urinalysis noted to becloudy, specific gravity 1.015, urine protein 100, urine glucose 100, urine ketones 15, urine occult blood 250, negative nitrite, leukocyte Estrace 500 withurine RBCs 25-50, urine WBCs 5-10 with 1+ urine bacteria, ethyl alcohol less than 3, urine culture pending per ED, blood culture x 2 pending per ED, SARS COVID/influenza/RSV PCR negative, chest x-ray with no acute cardiopulmonary findings, CT brain with no acute intracranial findings, EKG SR without acute evidence of ischemia. In the ED patient administered IV rocephin and placed on cardene drip. [facility] Medical History Anemia Arthritis Bilateral lower extremity edema Cancer Cardiomyopathy CKD (chronic kidney disease) stage 5, GFR less than 15 ml/min Gastric reflux Glaucoma Heart failure Heart murmur Hx of fracture of wrist Hyperlipidemia Hypertension Hypothyroidism Kidney failure Lumbar spinal stenosis Macular degeneration Mitral regurgitation Osteoporosis Rheumatoid arthritis Shortness of breath on exertion Sjogren syndrome with inflammatory arthritis Thyroid disease Type 2 diabetes mellitus Vertigo Home Medications ascorbic acid (vitamin C) 1,000 mg tablet,extended release (Vitamin C ER) 1,000 mg PO DAILY 06/13/22 [History Last Taken Unknown] bimatoprost 0.01 % eye drops (Lumigan) 1 drp EACH EYE QHS 06/13/22 [History Last Taken Unknown] carvedilol 12.5 mg tablet 12.5 mg PO BID 06/13/22 [History Last Taken 08/22/22 06:00] famotidine 40 mg tablet 40 mg PO DAILY 06/13/22 [History Last Taken Unknown] folic acid 1 mg tablet 1 mg PO DAILY 06/13/22 [History Last Taken Unknown] levothyroxine 25 mcg tablet 25 mcg PO DAILY 06/13/22 [History Last Taken 10/10/22] multivitamin 1 tab PO DAILY 06/13/22 [History Last Taken Unknown] Juxta Lite #2 ea 08/15/22 [Rx Last Taken Unknown] doxazosin 2 mg tablet (Cardura) 2 mg PO BID 3 months #180 tabs 08/15/22 [Rx Last Taken 08/22/22 06:00] furosemide 40 mg tablet (Lasix) 60 mg PO BID 08/15/22 [History Last Taken Unknown] icosapent ethyl 1 gram capsule (Vascepa) 2 g (2 x 1 gram) PO BID #180 caps 08/15/22 [Rx Last Taken Unknown] acetaminophen 325 mg capsule (Tylenol) 650 mg PO QHS 10/03/22 [History Last Taken Unknown] hydrocodone-acetaminophen 5-325mg 5mg-325mg 1 tab PO Q6H PRN pain 3 days #12 tabs 10/10/22 [Rx Last Taken Unknown] lidocaine 5 % topical patch patch topical 01/30/23 [History Last Taken Unknown] amlodipine 5 mg tablet 5 mg PO BID 3 months #180 tabs 06/05/23 [Rx Last Taken Unknown] hydralazine 50 mg tablet 50 mg PO .QID 3 months #360 tabs 06/05/23 [Rx Last Taken Unknown] gabapentin 100 mg capsule 200 mg (2 x 100 mg) PO DAILY PRN Neuropathy 3 months #90 caps 06/27/23 [Rx Last Taken Unknown] nifedipine 30 mg tablet,extended release 24 hr 30 mg PO BID 06/30/23 [History Last Taken Unknown] pantoprazole 40 mg tablet,delayed release 40 mg PO PRN Indigestion 06/30/23 [History Last Taken Unknown] Allergy/AdvReac Type Severity Reaction Status Date / Time adalimumab [From Humira] Allergy Hives Verified 06/05/23 13:37 Family History Mother Heart disease Hypertension Osteoporosis Father CVA (cerebral vascular accident) Hypertension Surgical History H/O transurethral resection of bladder tumor (TURBT) History of bladder surgery History of nephrectomy Hx of colonoscopy S/P partial hysterectomy S/P total knee arthroplasty S/P vein stripping Social History household members: family Smoking Status: Never smoker alcohol intake: never substance use type: does not use ROS Review of Systems ROS Unobtainable: due to encephalopathy Vital Signs Vital Signs Vital Signs: 07/15/23 22:44 07/15/23 22:48 07/15/23 22:55 Temperature 99.3 F H 99.3 F H 99.3 F H Temperature Source Temporal Temporal Temporal Pulse Rate 100 100 97 Respiratory Rate 21 H 21 H 26 H Blood Pressure 235/92 H 235/92 H 221/87 H Blood Pressure Mean 139 139 131 Pulse Ox 98 98 97 Oxygen Delivery Method Room Air Room Air Room Air 07/15/23 23:39 07/15/23 23:55 07/16/23 00:00 Temperature 99.3 F H 98.5 F 98.4 F Temperature Source Temporal Oral Temporal Pulse Rate 95 96 96 Respiratory Rate 25 H 25 H 20 H Blood Pressure 230/94 H 222/84 H 218/85 H Blood Pressure Mean 139 130 129 Pulse Ox 97 97 97 Oxygen Delivery Method Room Air Room Air 07/16/23 00:42 07/16/23 01:00 Temperature 98.4 F Temperature Source Temporal Pulse Rate 95 88 Respiratory Rate 19 H 21 H Blood Pressure 211/83 H 197/77 H Blood Pressure Mean 125 117 Pulse Ox 97 96 Oxygen Delivery Method Room Air Weight Weight: 110 lb 3.698 oz Body Mass Index (BMI) 21.5 Physical Exam Narrative Physical Examination: General: Awakens to stimuli, not extremely alert, able to answer some questions but very lethargic and falls back asleep, seated upright in the ED bed, fatigued, ill-appearing. Skin: Normal color, normal turgor, no icterus, no cyanosis except occasional staged ecchymoses. HEENT: AT/NC, EOMI, PERRLA, dry MM, no carotid bruits or JVD noted. Lungs: Diminished, greater bases, mildly increased respiratory rate but no distress evident, no rales, ronchi or wheezing. Heart: Currently regular rate and rhythm; no gallop, rub audible, + SM. Abdomen: Soft, NTTP, ND, mildly hyperactive BS, no appreciated HSM. Extremities: No cyanosis, no clubbing, no marked peripheral edema, left upper extremity with + AVF thrill. Neurological: Awakens to stimuli, not extremely alert, able to answer some questions but very lethargic and falls back asleep, seated upright in the ED bed, fatigued, ill-appearing, cognitive function not baseline intact, pupils equally reactive to light and accommodation, cranial nerves grossly appear normal but difficult evaluation given encephalopathy, moving all 4 extremities, no focal deficits but difficult exam given encephalopathy, strength severely globally decreased. Psychiatric: Affect appears flat, lethargic, no acute evidence of depressive or anxiety feelings. Results Lab / Micro Data 07/15/23 23:18 07/15/23 23:18 Labs: Laboratory Results - last 24 hr 07/15/23 22:51: POC Glucose 196 H 07/15/23 23:18: WBC 15.0 H, RBC 4.28, Hgb 12.2, Hct 39.7, MCV 92.8, MCH 28.5, MCHC 30.7 L, RDW Std Deviation 60.3 H, RDW Coeff of Wiliam 18.0 H, Plt Count 175, MPV 10.8, Immature Gran % (Auto) 0.900, Neut % (Auto) 90.4 H, Lymph % (Auto) 5.3L, [place] % (Auto) 3.1, Eos % (Auto) 0.1, Baso % (Auto) 0.2, Absolute Neuts (auto)13.6 H, Absolute Lymphs (auto) 0.79 L, Nucleated RBC % 0, Sodium 137, Potassium 4.9, Chloride 102, Carbon Dioxide 28.0, Anion Gap 7, BUN 31 H, Creatinine 4.92 H, Estim Creat Clear Calc 6.22, Est GFR (MDRD) Af Amer 11 L, Est GFR (MDRD) Non-Af 9 L, BUN/Creatinine Ratio 6.3 L, Glucose 186 H, Calcium 9.6, Total Bilirubin 0.30, AST 22, ALT 13, Alkaline Phosphatase 84, Troponin I High Sens 59 H, Total Protein 6.3 L, Albumin 2.8 L, Globulin 3.5, Albumin/Globulin Ratio 0.8 L, Ethyl Alcohol < 3.0 07/16/23 00:10: Urine Color Yellow, Urine Clarity Cloudy, Urine pH 9.0, Ur Specific [place] 1.015, Urine Protein 100 H, Urine Glucose (UA) 100 H, Urine Ketones 15 H, Urine Occult Blood 250 H, Urine Nitrite Negative, Urine Bilirubin Negative, Urine Urobilinogen Normal, Ur Leukocyte Esterase 500 H, Urine RBC 25-50 SEEN, Urine WBC 5-10 SEEN, Ur Squamous Epith Cells 5-10 SEEN, Urine Bacteria 1+, Urine Mucus 0 SEEN Micro: Microbiology 07/16/23 00:16 Mucosa - Nose SARS-CoV-2, Influenza & RSV (PCR) - Final Rhythm Strip Rhythm Strip: Sinus Rhythm Rate: 95 Ectopy: None Imaging Radiology Impression Brain CT 07/15/23 23:02 IMPRESSION: No acute intracranial abnormality. Electronically Signed: Edmar Sams DO at 0:39 EDT , Chest X-Ray 07/15/23 23:47 IMPRESSION: No evidence of acute cardiopulmonary disease. 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 #1. Acute Encephalopathy, multifactorial secondary to Acute Complicated UrinaryTract Infection and #2 as noted: Will admit to ICU, UA upon ED evaluation remarkable, pending UCx, continue IVFs, monitor I/Os, continue IV Rocephin w/ transition as able pending sensitivities and speciation. Given ICU admission perprotocol will request ICU consultation. Bld cx x 2 obtained in the ED. PT/OT/CM consulted for discharge planning. #2. Acute hypertensive emergency with associated indeterminate cardiac enzyme, possibly related with underlying renal disease: EKG in ED w/ SR without acute evidence of ischemia, CXR w/ no acute cardiopulmonary findings, initial trop 53. Will maintain on Cardene drip until BP improves, will maintain on a monitored bed to be cautious, will continue to obtain serial cardiac enzymes and EKGs. Magnesium level requested. If enzymes rise notably will involve cardiology and request echocardiogram however at this time could be chronically elevated at this level given underlying renal disease. Will additionally continue patient underlying chronic home oral regimen. If BP does not improve low threshold to involve cardiology. ECHO requested. #3. HF Unclear type: No echocardiogram noted in system, unclear if preserved EFor not, will judiciously hydrate given unclear history, given hypertensive emergency as noted placed on Cardene drip, will continue concurrently patient home regimen including Coreg, Lasix, not on FLORENTINO or/ARB given likely underlying renal disease, also per current list does not appear to be on statin therapy. ECHO requested. #4. Chronic Kidney Disease Stage V/ESRD: Admission BUN/Cr 31/4.92, baseline renal function noted most recently 11/19/2022 creatinine 5.90, repeat BMP in AM, will consult Nephrology to continue her routine HD regimen. #5. Chronic anemia/AOCD: Admission hemoglobin 12.2, previous baseline had been primarily 8-9, will judiciously hydrate and repeat CBC in a.m. as certainly could be falsely elevated but last lab was remote and noted to be 11/05/2022. #6. Macular degeneration/glaucoma: Complicates presentation, maintain on fall precautions, continue patient eyedrop regimen. #7. Hypothyroidism: We will continue patient on levothyroxine regimen. #8. Bladder cancer: Status post TURBT, following with Dr. Soliman, unclear exactstaging, encourage continued outpatient follow-up as previously arranged. #9. Rheumatoid arthritis/Sjogren's syndrome with inflammatory arthritis: Per current list does not appear to be on chronic regimen, encourage continued outpatient follow-up with rheumatology as previously arranged. #10. GERD: We will continue patient home PPI. #11. DVT prophylaxis: Heparin. #12. CODE status: Family had left just prior to evaluation and ED noted their intention to immediately sleep given daytime engagements. Currently will remain unverified Full Code status, but will need to be re-discussed with family 07/16/23 to verify correct code status. Charges/Coding Visit Charges Inpatient E&M: 40405 Init Hosp L3 07/16/23 0252 <Electronically signed by Anastacia Selby MD> Cosigner Signature (if applicable): CC: Dr. Anastacia Selby MD; Dr. Osmani Morgan MD~ Signed [facility] Work Phone: 1(470) 665-766903-20-2024 Discharge summary Author Holland Flores [facility] July 16, 2023 1:55am Note Date/Time July 15, 2023 11: 10pm [facility] Medical Records Department [address] [place] [address] Emergency Department Summary 07/15/23 MR#: [id number] Acct: [id number] Name: LAVINIA DURAND Rep #:[id number] : 1940 82 From: Holland Flores MD PCP: Dr. Osmani Morgan MD Status:R EG ER Location: ED HPI History of Present Illness Chief Complaint: Confusion Informant: patient, family and EMS Narrative Narrative: 82-year-old female acutely confused today. Last known well was sometime today. Multiple family members in and out of the home where she lives with them. She is usually very sharp, but is very confused tonight. She is at times of unresponsiveness where she does respond to voice and opens her eyes but then would not respond verbally for some time and when she does answers are inappropriate. She was found on the floor tonight after having fallen in the bathroom. Unknown if any injury. There was another fall 1 or 2 weeks ago in which there was no injury as well. 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 No other new symptoms noticed by family. [facility] Medical History Anemia Arthritis Bilateral lower extremity edema Cancer Cardiomyopathy CKD (chronic kidney disease) stage 5, GFR less than 15 ml/min Gastric reflux Glaucoma Heart failure Heart murmur Hx of fracture of wrist Hyperlipidemia Hypertension Hypothyroidism Kidney failure Lumbar spinal stenosis Macular degeneration Mitral regurgitation Osteoporosis Rheumatoid arthritis Shortness of breath on exertion Sjogren syndrome with inflammatory arthritis Thyroid disease Type 2 diabetes mellitus Vertigo Home Medications ascorbic acid (vitamin C) 1,000 mg tablet,extended release (Vitamin C ER) 1,000 mg PO DAILY 06/13/22 [History Last Taken Unknown] bimatoprost 0.01 % eye drops (Lumigan) 1 drp EACH EYE QHS 06/13/22 [History Last Taken Unknown] carvedilol 12.5 mg tablet 12.5 mg PO BID 06/13/22 [History Last Taken 08/22/22 06:00] famotidine 40 mg tablet 40 mg PO DAILY 06/13/22 [History Last Taken Unknown] folic acid 1 mg tablet 1 mg PO DAILY 06/13/22 [History Last Taken Unknown] levothyroxine 25 mcg tablet 25 mcg PO DAILY 06/13/22 [History Last Taken 10/10/22] multivitamin 1 tab PO DAILY 06/13/22 [History Last Taken Unknown] Juxta Lite #2 ea 08/15/22 [Rx Last Taken Unknown] doxazosin 2 mg tablet (Cardura) 2 mg PO BID 3 months #180 tabs 08/15/22 [Rx Last Taken 04/27/23 06:00] furosemide 40 mg tablet (Lasix) 60 mg PO BID 08/15/22 [History Last Taken Unknown] icosapent ethyl 1 gram capsule (Vascepa) 2 g (2 x 1 gram) PO BID #180 caps 08/15/22 [Rx Last Taken Unknown] acetaminophen 325 mg capsule (Tylenol) 650 mg PO QHS 10/03/22 [History Last Taken Unknown] hydrocodone-acetaminophen 5-325mg 5mg-325mg 1 tab PO Q6H PRN pain 3 days #12 tabs 10/10/22 [Rx Last Taken Unknown] lidocaine 5 % topical patch patch topical 01/30/23 [History Last Taken Unknown] amlodipine 5 mg tablet 5 mg PO BID 3 months #180 tabs 06/05/23 [Rx Last Taken Unknown] hydralazine 50 mg tablet 50 mg PO .QID 3 months #360 tabs 06/05/23 [Rx Last Taken Unknown] gabapentin 100 mg capsule 200 mg (2 x 100 mg) PO DAILY PRN Neuropathy 3 months #90 caps 06/27/23 [Rx Last Taken Unknown] nifedipine 30 mg tablet,extended release 24 hr 30 mg PO BID 06/30/23 [History Last Taken Unknown] pantoprazole 40 mg tablet,delayed release 40 mg PO PRN Indigestion 06/30/23 [History Last Taken Unknown] Allergy/AdvReac Type Severity Reaction Status Date / Time adalimumab [From Humira] Allergy Hives Verified 06/05/23 13:37 Family History Mother Heart disease Hypertension Osteoporosis Father CVA (cerebral vascular accident) Hypertension Surgical History H/O transurethral resection of bladder tumor (TURBT) History of bladder surgery History of nephrectomy Hx of colonoscopy S/P partial hysterectomy S/P total knee arthroplasty S/P vein stripping Social History (Updated 07/16/23 @ 01:[address] Anastacia Selby MD) household members: family Smoking Status: Never smoker alcohol intake: never substance use type: does not use ROS ROS ED Review of Systems ROS Unobtainable: due to encephalopathy ENT ENT ED: Denies sore throat Cardiovascular Cardiovascular: Denies chest pain Respiratory/Chest Respiratory/Chest: Denies dyspnea Gastrointestinal Gastrointestinal: Denies diarrhea or vomiting Genitourinary Genitourinary ED: Reports urinary frequency; Denies hematuria Musculoskeletal Musculoskeletal: Denies back pain or neck pain Neurologic Neurologic: Reports headache(s) EXAM Physical Exam Const Vital Signs: 07/15/23 22:44 07/15/23 22:48 07/15/23 22:55 Temperature 99.3 F H 99.3 F H 99.3 F H Temperature Source Temporal Temporal Temporal Pulse Rate 100 100 97 Respiratory Rate 21 H 21 H 26 H Blood Pressure 235/92 H 235/92 H 221/87 H Blood Pressure Mean 139 139 131 Pulse Ox 98 98 97 Oxygen Delivery Method Room Air Room Air Room Air 07/15/23 23:39 07/15/23 23:55 07/16/23 00:00 Temperature 99.3 F H 98.5 F 98.4 F Temperature Source Temporal Oral Temporal Pulse Rate 95 96 96 Respiratory Rate 25 H 25 H 20 H Blood Pressure 230/94 H 222/84 H 218/85 H Blood Pressure Mean 139 130 129 Pulse Ox 97 97 97 Oxygen Delivery Method Room Air Room Air 07/16/23 00:42 07/16/23 01:00 Temperature 98.4 F Temperature Source Temporal Pulse Rate 95 88 Respiratory Rate 19 H 21 H Blood Pressure 211/83 H 197/77 H Blood Pressure Mean 125 117 Pulse Ox 97 96 Oxygen Delivery Method Room Air Positive well nourished and well developed General Appearance ED: well developed and NAD HEENT Reports TM's clear and nasal mucous membranes and turbinates normal HEENT Narrative: No Newberry sign. No raccoon eyes. No CSF otorhinorrhea. atraumatic Face and Sinus: Negative for facial tenderness Tympanic Membrane ED: Yes TM's clear Eyes PERRL and EOMs intact bilaterally Eyes Narrative: 1 mm bilaterally Visual Acuity: other Other Details: no entrapment or pain with extraocular movements Neck full ROM and supple General: Negative for tenderness Chest Wall inspection of chest normal and palpation of chest normal Chest: symmetrical chest wall rise; Negative for crepitus or tenderness Resp normal respiratory effort and clear to auscultation bilaterally Percussion: other equal BS bilat Cardio Rate: regular rate Rhythm: regular rhythm Heart Sounds: murmur systolic II/ crescendo-decrescendo LVOT GI normal to inspection, nondistended, normoactive bowel sounds, soft to palpation and non-tender Back/Spine normal ROM Back/Spine Narrative: Painless range of motion when assisted to sit her up and turning her head Cervical Spine: Negative for cervical spine tenderness Thoracic Spine / Upper Back: Negative for thoracic spinal tenderness Lumbar Spine / Lower Back: Negative for lumbar spinal tenderness Extremity normal to inspection and full ROM General Extremety ED: Negative for tenderness Neuro CN's II-XII intact bilaterally, moves all extremities, no focal motor deficits and no sensory deficits noted [place] Coma Scale: document GCS findings Spontaneous Obeys Commands Confused 14 Sensorium / Orientation: awake and alert Motor Exam: general weakness Skin no wounds Lesions: no lesions Rashes: no rashes MDM MDM MDM Narrative Medical decision making narrative: Patient with no focal neurologic symptoms but she is encephalopathic and has an extremely high blood pressure. In order to try to drop this around a goal of 20% reduction of the systolic blood pressure, with a goal reduction for less than systolic blood pressure of 200, Cardene was initiated and hypertension was worked up. She does not have any symptoms to suggest an aortic dissection, her thoracic and abdominal exams are very benign, she does not have any signs of injury but she did have a couple of falls, 1 week or 2 ago, and another [address] was obtained, I reviewed the images and result which I agree with, it is negative for acute abnormality/hemorrhage/skull fracture. Her urinalysis is ambiguous, testing 500 leukoesterase but very few pyuria. Culture is sent, and we will treat her empirically given that she does have urinary symptoms. She does have leukocytosis, she has renal failure but electrolytes are within normallimits and the rest of her workup is unremarkable. Chest x-ray 1 view on my interpretation shows no acute pneumonia radiology in agreement. COVID/influenzanegative. Plan is for admission. Lab Data Attestation: I reviewed the patient's lab results. Labs: Laboratory Results - last 24 hr 07/15/23 07/15/23 07/16/23 22:51 23:18 00:10 WBC 15.0 H RBC 4.28 Hgb 12.2 Hct 39.7 MCV 92.8 MCH 28.5 MCHC 30.7 L RDW Std Deviation 60.3 H RDW Coeff of Wiliam 18.0 H Plt Count 175 MPV 10.8 Immature Gran % (Auto) 0.900 Neut % (Auto) 90.4 H Lymph % (Auto) 5.3 L Newberry % (Auto) 3.1 Eos % (Auto) 0.1 Baso % (Auto) 0.2 Absolute Neuts (auto) 13.6 H Absolute Lymphs (auto) 0.79 L Nucleated RBC % 0 Sodium 137 Potassium 4.9 Chloride 102 Carbon Dioxide 28.0 Anion Gap 7 BUN 31 H Creatinine 4.92 H Estim Creat Clear Calc 6.22 Est GFR (MDRD) Af Amer 11 L Est GFR (MDRD) Non-Af 9 L BUN/Creatinine Ratio 6.3 L Glucose 186 H Calcium 9.6 Total Bilirubin 0.30 AST 22 ALT 13 Alkaline Phosphatase 84 Troponin I High Sens 59 H Total Protein 6.3 L Albumin 2.8 L Globulin 3.5 Albumin/Globulin Ratio 0.8 L Urine Color Yellow Urine Clarity Cloudy Urine pH 9.0 Ur Specific [place] 1.015 Urine Protein 100 H Urine Glucose (UA) 100 H Urine Ketones 15 H Urine Occult Blood 250 H Urine Nitrite Negative Urine Bilirubin Negative Urine Urobilinogen Normal Ur Leukocyte Esterase 500 H Urine RBC 25-50 SEEN Urine WBC 5-10 SEEN Ur Squamous Epith Cells 5-10 SEEN Urine Bacteria 1+ Urine Mucus 0 SEEN Ethyl Alcohol < 3.0 POC Glucose 196 H Radiography Diagnostic Testing: Clinical Impression(s) from Imaging Studies Brain CT 07/15/23 23:02 IMPRESSION: No acute intracranial abnormality. Electronically Signed: Edmar Sams DO at 0:39 EDT , Chest X-Ray 07/15/23 23:47 IMPRESSION: No evidence of acute cardiopulmonary disease. Electronically Signed: Edmar Sams DO at 0:35 EDT , Rhythm Strip Rhythm Strip: Sinus Rhythm Rate: 95 Ectopy: None EKG Initial EKG: Attestation: I personally reviewed and interpreted this EKG as follows: Interpretation: Sinus Rhythm, No Acute Injury Pattern and AV Block (1st deg) Prior EKG tracings: available for review Prior: Changed (First-degree AV block is new but rhythm, morphology, and axis are otherwise unchanged) Management Discussion w/another healthcare provider: Hospitalist Critical Care Time Critical Care Time: Yes Critical care time (excluding procedures): 30-74 minutes (33 min), Including time spent:, Discussing w/Patient &/or Family/Hospital Tray Service Worker, Discussing w/Consultants, Arranging Admission or Transfer and Performing Direct Patient Care at Bedside Discharge Plan Dx/Rx/DC Orders Clinical Impression: Acute encephalopathy, Hypertensive emergency, Acute UTI, ESRD on dialysis Disposition Disposition: [facility] What to do if you have Problems For any increased pain, shortness of breath, bleeding, nausea or vomiting, chestpain, or any unexpected problems, contact your Primary Care Provider. Call [facility] ([phone]) or report to the closest Emergency Room. Call 911 if necessary. 07/16/23 0155 <Electronically signed by Holland Flores MD> Cosigner Signature (if applicable): CC: Dr. Osmani Morgan MD ~ Signed [facility] Work Phone: 1(584) 453-568303-20-2024 Discharge summary Author Holland Flores [facility] July 16, 2023 1:55am Note Date/Time July 15, 2023 11: 10pm [facility] Medical Records Department [address] [place] [address] Emergency Department Summary 07/15/23 MR#: [id number] Acct: [id number] Name: LAVINIA DURAND Rep #:[id number] : 1940 82 From: Holland Flores MD PCP: Dr. Osmani Morgan MD Status:R EG ER Location: ED HPI History of Present Illness Chief Complaint: Confusion Informant: patient, family and EMS Narrative Narrative: 82-year-old female acutely confused today. Last known well was sometime today. Multiple family members in and out of the home where she lives with them. She is usually very sharp, but is very confused tonight. She is at times of unresponsiveness where she does respond to voice and opens her eyes but then would not respond verbally for some time and when she does answers are inappropriate. She was found on the floor tonight after having fallen in the bathroom. Unknown if any injury. There was another fall 1 or 2 weeks ago in which there was no injury as well. 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 No other new symptoms noticed by family. [facility] Medical History Anemia Arthritis Bilateral lower extremity edema Cancer Cardiomyopathy CKD (chronic kidney disease) stage 5, GFR less than 15 ml/min Gastric reflux Glaucoma Heart failure Heart murmur Hx of fracture of wrist Hyperlipidemia Hypertension Hypothyroidism Kidney failure Lumbar spinal stenosis Macular degeneration Mitral regurgitation Osteoporosis Rheumatoid arthritis Shortness of breath on exertion Sjogren syndrome with inflammatory arthritis Thyroid disease Type 2 diabetes mellitus Vertigo Home Medications ascorbic acid (vitamin C) 1,000 mg tablet,extended release (Vitamin C ER) 1,000 mg PO DAILY 06/13/22 [History Last Taken Unknown] bimatoprost 0.01 % eye drops (Lumigan) 1 drp EACH EYE QHS 06/13/22 [History Last Taken Unknown] carvedilol 12.5 mg tablet 12.5 mg PO BID 06/13/22 [History Last Taken 08/22/22 06:00] famotidine 40 mg tablet 40 mg PO DAILY 06/13/22 [History Last Taken Unknown] folic acid 1 mg tablet 1 mg PO DAILY 06/13/22 [History Last Taken Unknown] levothyroxine 25 mcg tablet 25 mcg PO DAILY 06/13/22 [History Last Taken 10/10/22] multivitamin 1 tab PO DAILY 06/13/22 [History Last Taken Unknown] Juxta Lite #2 ea 08/15/22 [Rx Last Taken Unknown] doxazosin 2 mg tablet (Cardura) 2 mg PO BID 3 months #180 tabs 08/15/22 [Rx Last Taken 08/22/22 06:00] furosemide 40 mg tablet (Lasix) 60 mg PO BID 08/15/22 [History Last Taken Unknown] icosapent ethyl 1 gram capsule (Vascepa) 2 g (2 x 1 gram) PO BID #180 caps 08/15/22 [Rx Last Taken Unknown] acetaminophen 325 mg capsule (Tylenol) 650 mg PO QHS 10/03/22 [History Last Taken Unknown] hydrocodone-acetaminophen 5-325mg 5mg-325mg 1 tab PO Q6H PRN pain 3 days #12 tabs 10/10/22 [Rx Last Taken Unknown] lidocaine 5 % topical patch patch topical 01/30/23 [History Last Taken Unknown] amlodipine 5 mg tablet 5 mg PO BID 3 months #180 tabs 06/05/23 [Rx Last Taken Unknown] hydralazine 50 mg tablet 50 mg PO .QID 3 months #360 tabs 06/05/23 [Rx Last Taken Unknown] gabapentin 100 mg capsule 200 mg (2 x 100 mg) PO DAILY PRN Neuropathy 3 months #90 caps 06/27/23 [Rx Last Taken Unknown] nifedipine 30 mg tablet,extended release 24 hr 30 mg PO BID 06/30/23 [History Last Taken Unknown] pantoprazole 40 mg tablet,delayed release 40 mg PO PRN Indigestion 06/30/23 [History Last Taken Unknown] Allergy/AdvReac Type Severity Reaction Status Date / Time adalimumab [From Humira] Allergy Hives Verified 06/05/23 13:37 Family History Mother Heart disease Hypertension Osteoporosis Father CVA (cerebral vascular accident) Hypertension Surgical History H/O transurethral resection of bladder tumor (TURBT) History of bladder surgery History of nephrectomy Hx of colonoscopy S/P partial hysterectomy S/P total knee arthroplasty S/P vein stripping Social History (Updated 07/16/23 @ 01:[address] Anastacia Selby MD) household members: family Smoking Status: Never smoker alcohol intake: never substance use type: does not use ROS ROS ED Review of Systems ROS Unobtainable: due to encephalopathy ENT ENT ED: Denies sore throat Cardiovascular Cardiovascular: Denies chest pain Respiratory/Chest Respiratory/Chest: Denies dyspnea Gastrointestinal Gastrointestinal: Denies diarrhea or vomiting Genitourinary Genitourinary ED: Reports urinary frequency; Denies hematuria Musculoskeletal Musculoskeletal: Denies back pain or neck pain Neurologic Neurologic: Reports headache(s) EXAM Physical Exam Const Vital Signs: 07/15/23 22:44 07/15/23 22:48 07/15/23 22:55 Temperature 99.3 F H 99.3 F H 99.3 F H Temperature Source Temporal Temporal Temporal Pulse Rate 100 100 97 Respiratory Rate 21 H 21 H 26 H Blood Pressure 235/92 H 235/92 H 221/87 H Blood Pressure Mean 139 139 131 Pulse Ox 98 98 97 Oxygen Delivery Method Room Air Room Air Room Air 07/15/23 23:39 07/15/23 23:55 07/16/23 00:00 Temperature 99.3 F H 98.5 F 98.4 F Temperature Source Temporal Oral Temporal Pulse Rate 95 96 96 Respiratory Rate 25 H 25 H 20 H Blood Pressure 230/94 H 222/84 H 218/85 H Blood Pressure Mean 139 130 129 Pulse Ox 97 97 97 Oxygen Delivery Method Room Air Room Air 07/16/23 00:42 07/16/23 01:00 Temperature 98.4 F Temperature Source Temporal Pulse Rate 95 88 Respiratory Rate 19 H 21 H Blood Pressure 211/83 H 197/77 H Blood Pressure Mean 125 117 Pulse Ox 97 96 Oxygen Delivery Method Room Air Positive well nourished and well developed General Appearance ED: well developed and NAD HEENT Reports TM's clear and nasal mucous membranes and turbinates normal HEENT Narrative: No Newberry sign. No raccoon eyes. No CSF otorhinorrhea. atraumatic Face and Sinus: Negative for facial tenderness Tympanic Membrane ED: Yes TM's clear Eyes PERRL and EOMs intact bilaterally Eyes Narrative: 1 mm bilaterally Visual Acuity: other Other Details: no entrapment or pain with extraocular movements Neck full ROM and supple General: Negative for tenderness Chest Wall inspection of chest normal and palpation of chest normal Chest: symmetrical chest wall rise; Negative for crepitus or tenderness Resp normal respiratory effort and clear to auscultation bilaterally Percussion: other equal BS bilat Cardio Rate: regular rate Rhythm: regular rhythm Heart Sounds: murmur systolic II/ crescendo-decrescendo LVOT GI normal to inspection, nondistended, normoactive bowel sounds, soft to palpation and non-tender Back/Spine normal ROM Back/Spine Narrative: Painless range of motion when assisted to sit her up and turning her head Cervical Spine: Negative for cervical spine tenderness Thoracic Spine / Upper Back: Negative for thoracic spinal tenderness Lumbar Spine / Lower Back: Negative for lumbar spinal tenderness Extremity normal to inspection and full ROM General Extremety ED: Negative for tenderness Neuro CN's II-XII intact bilaterally, moves all extremities, no focal motor deficits and no sensory deficits noted Arely Coma Scale: document GCS findings Spontaneous Obeys Commands Confused 14 Sensorium / Orientation: awake and alert Motor Exam: general weakness Skin no wounds Lesions: no lesions Rashes: no rashes MDM MDM MDM Narrative Medical decision making narrative: Patient with no focal neurologic symptoms but she is encephalopathic and has an extremely high blood pressure. In order to try to drop this around a goal of 20% reduction of the systolic blood pressure, with a goal reduction for less than systolic blood pressure of 200, Cardene was initiated and hypertension was worked up. She does not have any symptoms to suggest an aortic dissection, her thoracic and abdominal exams are very benign, she does not have any signs of injury but she did have a couple of falls, 1 week or 2 ago, and another [address] was obtained, I reviewed the images and result which I agree with, it is negative for acute abnormality/hemorrhage/skull fracture. Her urinalysis is ambiguous, testing 500 leukoesterase but very few pyuria. Culture is sent, and we will treat her empirically given that she does have urinary symptoms. She does have leukocytosis, she has renal failure but electrolytes are within normallimits and the rest of her workup is unremarkable. Chest x-ray 1 view on my interpretation shows no acute pneumonia radiology in agreement. COVID/influenzanegative. Plan is for admission. Lab Data Attestation: I reviewed the patient's lab results. Labs: Laboratory Results - last 24 hr 07/15/23 07/15/23 07/16/23 22:51 23:18 00:10 WBC 15.0 H RBC 4.28 Hgb 12.2 Hct 39.7 MCV 92.8 MCH 28.5 MCHC 30.7 L RDW Std Deviation 60.3 H RDW Coeff of Wiliam 18.0 H Plt Count 175 MPV 10.8 Immature Gran % (Auto) 0.900 Neut % (Auto) 90.4 H Lymph % (Auto) 5.3 L [place] % (Auto) 3.1 Eos % (Auto) 0.1 Baso % (Auto) 0.2 Absolute Neuts (auto) 13.6 H Absolute Lymphs (auto) 0.79 L Nucleated RBC % 0 Sodium 137 Potassium 4.9 Chloride 102 Carbon Dioxide 28.0 Anion Gap 7 BUN 31 H Creatinine 4.92 H Estim Creat Clear Calc 6.22 Est GFR (MDRD) Af Amer 11 L Est GFR (MDRD) Non-Af 9 L BUN/Creatinine Ratio 6.3 L Glucose 186 H Calcium 9.6 Total Bilirubin 0.30 AST 22 ALT 13 Alkaline Phosphatase 84 Troponin I High Sens 59 H Total Protein 6.3 L Albumin 2.8 L Globulin 3.5 Albumin/Globulin Ratio 0.8 L Urine Color Yellow Urine Clarity Cloudy Urine pH 9.0 Ur Specific [place] 1.015 Urine Protein 100 H Urine Glucose (UA) 100 H Urine Ketones 15 H Urine Occult Blood 250 H Urine Nitrite Negative Urine Bilirubin Negative Urine Urobilinogen Normal Ur Leukocyte Esterase 500 H Urine RBC 25-50 SEEN Urine WBC 5-10 SEEN Ur Squamous Epith Cells 5-10 SEEN Urine Bacteria 1+ Urine Mucus 0 SEEN Ethyl Alcohol < 3.0 POC Glucose 196 H Radiography Diagnostic Testing: Clinical Impression(s) from Imaging Studies Brain CT 07/15/23 23:02 IMPRESSION: No acute intracranial abnormality. Electronically Signed: Edmar Sams DO at 0:39 EDT , Chest X-Ray 07/15/23 23:47 IMPRESSION: No evidence of acute cardiopulmonary disease. Electronically Signed: Edmar Sams DO at 0:35 EDT , Rhythm Strip Rhythm Strip: Sinus Rhythm Rate: 95 Ectopy: None EKG Initial EKG: Attestation: I personally reviewed and interpreted this EKG as follows: Interpretation: Sinus Rhythm, No Acute Injury Pattern and AV Block (1st deg) Prior EKG tracings: available for review Prior: Changed (First-degree AV block is new but rhythm, morphology, and axis are otherwise unchanged) Management Discussion w/another healthcare provider: Hospitalist Critical Care Time Critical Care Time: Yes Critical care time (excluding procedures): 30-74 minutes (33 min), Including time spent:, Discussing w/Patient &/or Family/Hospital Tray Service Worker, Discussing w/Consultants, Arranging Admission or Transfer and Performing Direct Patient Care at Bedside Discharge Plan Dx/Rx/DC Orders Clinical Impression: Acute encephalopathy, Hypertensive emergency, Acute UTI, ESRD on dialysis Disposition Disposition: [facility] What to do if you have Problems For any increased pain, shortness of breath, bleeding, nausea or vomiting, chestpain, or any unexpected problems, contact your Primary Care Provider. Call [facility] ([phone]) or report to the closest Emergency Room. Call 911 if necessary. 07/16/23 0155 <Electronically signed by Holland Flores MD> Cosigner Signature (if applicable): CC: Dr. Osmani Morgan MD ~ Signed [facility] Work Phone: [phone]) [phone] NotePatient Outreach (UROLMN) LAVINIA DURAND ([id number]) 1940 F Date Time Provider Department 05/16/23 YOVANI PEOPLES During your visit today, we recorded the following information about you: Allergies As of Date: 05/16/2023 Noted Allergy Reaction ATORVASTATIN 11/23/2021 5 - Intolerance Comments: Severe fatigue HUMIRA (ADALIMUMAB) 02/28/2020 2 - Rash Date Reviewed: 05/12/2023 Reviewed by: Dwain Holt RN - Fully Assessed Visit Diagnosis:Screening for genitourinary condition [Z13.89] Order(s):URINALYSIS, REFLEX MICROSCOPIC [UDH2366] Order #: [id number]. #:[id number] Prescriptions as of 05/19/2023 - docusate sodium (COLACE) 100 mg capsule Take 1 capsule by mouth two times a day. - trospium (SANCTURA) 20 mg tablet Take 1 tablet by mouth once daily as needed (Bladder spasms). - cephALEXin (KEFLEX) 500 mg capsule Take 1 capsule by mouth once daily. Continue taking until the day after your barillas catheter is removed - NIFEdipine ER (PROCARDIA XL) 30 mg 24 hr tablet Take 30 mg by mouth two times a day. - doxazosin (CARDURA) 2 mg tablet Take 2 mg by mouth two times a day. - iv contrast (will be provided with radiology test) CT Urogram WO/W Inject, intravenously, once for 1 dose.No IV access, insert saline lock prior to the beginning of sedation, infusion, injection of imaging exam. Discontinue saline lock post exam. If Pt. has a central line or IVAD, may access for administration according to line specific nursing protocol. Once exam is complete flush line and de-access according to line specific nursing protocol in the CT contrast administration guidelines link. - 0.9 % sodium chloride (NACL 0.9%) infusion Administer at rate defined per CT contrast administration specifications. To be provided with radiology test. - acetaminophen (TYLENOL EXTRA STRENGTH) 500 mg tablet Take 2 tablets by mouth every 6 hours as needed for pain. - furosemide (LASIX) 20 mg tablet Take 20 mg by mouth every other day. - carvedilol (COREG) 12.5 mg tablet Take 1 tablet by mouth twice daily with meals. - atorvastatin (LIPITOR) 20 mg tablet Take 1 tablet by mouth once daily. - indapamide (LOZOL) 1.25 mg tablet Take 1 tablet by mouth once daily. - acetaminophen (TYLENOL) 500 mg tablet Take 500 mg by mouth every 6 hours as needed for pain. - bisacodyl (DULCOLAX) 10 mg supp 1 Suppository by RECTAL route once daily as needed for constipation. - hydrALAZINE (APRESOLINE) 25 mg tablet Take 25 mg by mouth four times daily. - amLODIPine (NORVASC) 10 mg tablet Take 10 mg by mouth once daily. - pantoprazole DR (PROTONIX) 40 mg tablet Take 40 mg by mouth once daily. - famotidine (PEPCID) 40 mg tablet Take 40 mg by mouth once daily. - benazepril (LOTENSIN) 20 mg tablet Take 20 mg by mouth twice daily. - insulin lispro (HUMALOG KWIKPEN INSULIN SUBCUTANEOUS) Inject 8 Units subcutaneously twice daily before meals. - insulin glargine (LANTUS SOLOSTAR U-100 INSULIN) 100 unit/mL (3 mL) Inject 8 Units subcutaneously daily at bedtime. - levothyroxine (SYNTHROID) 25 mcg tablet Take 25 mcg by mouth daily before breakfast. - CETIRIZINE HCL (ZYRTEC ORAL) Take 5 mg by mouth at bedtime as needed (itching). - gabapentin (NEURONTIN) 300 mg capsule Take 1 capsule by mouth three times daily. / Actual start date 02/12/15 - fenofibrate nanocrystallized (TRICOR) 145 mg tablet Take 145 mg by mouth once daily. - bimatoprost (LUMIGAN) 0.01 % drop ophthalmic drops Use 1 Drop in both eyes daily at bedtime. - cholecalciferol, Vitamin D3, 50,000 unit cap capsule Take 50,000 Units by mouth every 2 weeks. Problem List As Of Date 05/16/2023 Noted Resolved Lumbar canal stenosis [M48.061] 07/30/2011 Hypertension [I10] Diabetes (HCC) [E11.9] Hypercholesteremia [E78.00] Arthritis [M19.90] GERD (gastroesophageal reflux disease) [K21.9] Hypothyroidism [E03.9] Encounter for follow-up surveillance of urothel*11/03/2020 Stage 3b chronic kidney disease (HCC) [N18.32] 03/08/2021 Anemia [D64.9] 03/08/2021 Neoplasm of bladder [D49.4] 03/12/2021 Acute on chronic diastolic congestive heart aide*11/23/2021 ESRD (end stage renal disease) (HCC) [N18.6] 05/05/2023 Cardiac murmur [R01.1] 05/06/2023 Dependence on renal dialysis (HCC) [Z99.2] 05/06/2023 Chronic kidney disease due to type 2 diabetes m*05/06/2023 Encounter Status:Closed by BE ROBLES on 05/19/23[facility] 05-16-2023 NoteHNO ID: [id number] Author: ELE BONILLA MD Service: ? Author Type: Fellow Type: Progress Notes Filed: 05/16/2023 11:03 Note Text: CC: post-op HPI: 82 year old female s/p Cystoscopy and Transurethral Resection of Bladder Tumor, by Dr. Peoples, on 05/12/2023. Summary: 10/2020: Right Nephroureterectomy pTaR0 LG 02/2021: TURBT pT1 HG (BCG induction, no maintenance due to shortage) 11/2021: TURBT medical services assistant HG 04/2023 TURBT pT1 HG The patient experienced no post-operative issues, with pain showing improvement. Normal bowel movements. No issues with the barillas catheter Pathology 05/12/2023: FINAL DIAGNOSIS A. Urinary bladder, tumor 1, transurethral resection: - Urothelial carcinoma, papillary and invasive, high-grade. - Lamina propria invasion is present (at least pT1). - No definite muscularis propria is present for evaluation. B. Urinary bladder, tumor 2, transurethral resection: - Urothelial carcinoma, papillary and invasive, high-grade. - Lamina propria invasion is present (at least pT1). - Muscularis propria is present for evaluation and negative for neoplasm. C. Urinary bladder, deep tumor base, transurethral resection: - Urothelial carcinoma, papillary noninvasive, high-grade. - No invasion identified (at least medical services assistant). - Muscularis propria is present for evaluation and negative for neoplasm. PEx: There were no vitals taken for this visit. Abdomen: Soft, non tender, non distended Barillas catheter draining clear urine. Labs: Creatinine Date Value Ref Range Status 05/13/2023 3.08 (H) 0.58 - 0.96 mg/dL Final 05/12/2023 5.51 (H) 0.58 - 0.96 mg/dL Final 04/18/2023 4.91 (H) 0.58 - 0.96 mg/dL Final 04/11/2023 2.35 (H) 0.58 - 0.96 mg/dL Final Hemoglobin (g/dL) Date Value 05/13/2023 8.2 03/13/2021 8.0 Hematocrit (%) Date Value 05/13/2023 25.0 03/13/2021 25.3 WBC (k/uL) Date Value 05/13/2023 6.27 03/13/2021 5.02 IMPRESSION Patient with urothelial carcinoma pT1 HG. S/p transurethral Resection of Bladder Tumor, by Dr. Peoples, on 05/12/2023. Barillas catheter was removed without issues. Surgical pathology results were discussed in depth, as well as the plan to proceed with BCG. PLAN The case was discussed and reviewed with Dr. Yovani Peoples. His recommendation is to proceed with BCG (induction) and reevaluation with cystoscopy afterward. Patient understands and agrees with the plan.[facility] 05-13-2023 NoteHNO ID: [id number] Author: CONSUELO VILLALBA MD Service: Urology Author Type: Resident Type: Progress Notes Filed: 05/13/2023 06:55 Note Text: [facility] UROLOGY PROGRESS NOTE Name: Lavinia Durand Bed: M081 001/M081-01 Date: 05/13/2023 ASSESSMENT AND PLAN Lavinia Durand is a 82 year old female with PMHx significant for history of UTUC s/p right nephroureterectomy 10/2020 and T1HG Bladder Recurrence 03/12/2021 s/p induction BCG, TaHG Bladder Recurrence 11/26/2021, and ESRD on HD beginning 2022 now 1 Day Post-Op s/p TURBT. Interval/daily plan: - Underwent dialysis yesterday with 1.3L taken off - Vitally within normal limits and afebrile overnight - Catheter draining clear pink urine; UOP 360cc - No nausea or abdominal pain or bladder spasms #Neuro - Pain control with PO analgesia #CV/Resp - -HDS -Encourage IS #GI - -Diet: Renal -Colace, Zofran # - -Scr: trend daily -UOP: Continue to monitor, barillas in place #Activity - OOB to chair and Ambulate with assistance. Stressed importance of getting out of bed #DVT prophylaxis - SCDs, #ID/Antibiotics - Perioperative antibiotics - Ancef daily (renally dosed #Secondary Dx/Complications- See active problems below #Discharge teaching - Anticipate discharge home today with barillas catheter in place Active Problems Anemia: Chronic - POA: Yes renal disease; continue to monitor H/H Diabetes: Type II, insulin dependent - ISS POA: Yes Bladder Neoplasm: Pathology Pending - s/p TURBT POA: Yes End Stage Renal Disease: On Hemodialysis POA: Yes; resume HD while in-house HTN; continue home meds POA: Yes To be discussed with staff Dr. Shelton Villalba MD Urology Resident [facility] Pager [phone] For weekend or after hours issues please page the on-call urology pager [phone] 05/13/2023 6:55 AM Subjective SUBJECTIVE -As above Objective Vital Signs BP 173/87 Pulse 61 Temp 36.4 ?C (97.5 ?F) (Temporal) Resp 16 SpO2 97% There is no height or weight on file to calculate BMI. Input and Output Intake/Output Summary (Last 24 hours) at 05/13/2023 0654 Last data filed at 05/13/2023 0528 Gross per 24 hour Intake 1055 ml Output 1860 ml Net -805 ml Physical Exam General: Well-appearing, no acute distress CV: Warm and well-perfused Pulm: Symmetric chest rise, good inspiratory effort on RA Abdomen: Soft, appropriately tender, non-distended : Barillas catheter in place draining clear pink urine Extremities: Normal. No cyanosis, clubbing, or edema Recent Labs 05/13/23 0056 05/12/23 0954 WBC 6.27 4.69 HB 8.2* 8.5* HCT 25.0* 25.9* PLT 131* 122* NA 135* 137 K 4.1 5.5* CHLOR 95* 102 CO2 28 23 BUN 21 57* CREAT 3.08* 5.51* GLUC 174* 119* [facility]24 NoteHNO ID: [id number] Author: MISHEL BOO MD Service: Urology Author Type: Resident Type: Progress Notes Filed: 05/12/2023 16:42 Note Text: [facility] UROLOGY PROGRESS NOTE Name: Lavinia Durand Bed: M081 001/M081-01 Date: 05/12/2023 ASSESSMENT AND PLAN Lavinia Durand is a 82 year old female with PMHx significant for history of UTUC s/p right nephroureterectomy 10/2020 and T1HG Bladder Recurrence 03/12/2021 s/p induction BCG, TaHG Bladder Recurrence 11/26/2021, and ESRD on HD beginning 2022 now Day of Surgery s/p TURBT. Interval/daily plan: Admitted for HD and observation overnight. On MWF schedule, seen on HD this afternoon. Minimal bladder discomfort. Barillas draining clear to pink tinged urine. #Neuro - Pain control with PO/IV analgesia #CV/Resp - -HDS -Encourage IS #GI - -Diet: Renal -Colace, Zofran # - -Scr: trend daily -UOP: Continue to monitor, barillas in place #Activity - OOB to chair and Ambulate with assistance. Stressed importance of getting out of bed #DVT prophylaxis - SCDs, #ID/Antibiotics - Perioperative antibiotics - Ancef daily (renally dosed #Secondary Dx/Complications- See active problems below #Discharge teaching - routine, anticipated DC home tomorrow with barillas Active Problems Anemia: Chronic - POA: Yes renal disease; continue to monitor H/H Diabetes: Type II, insulin dependent - ISS POA: Yes Bladder Neoplasm: Pathology Pending - s/p TURBT POA: Yes End Stage Renal Disease: On Hemodialysis POA: Yes; resume HD while in-house HTN; continue home meds POA: Yes To be discussed with staff Dr. Shelton Boo M.D. Urology PGY-5 Pager: [phone] For weekend or after hours issues please page the on-call urology pager [phone] Subjective SUBJECTIVE -Doing well, minimal bladder discomfort Objective Vital Signs BP 162/72 Pulse (!) 51 Temp 36 ?C (96.8 ?F) (Oral) Resp 16 SpO2 95% There is no height or weight on file to calculate BMI. Input and Output Intake/Output Summary (Last 24 hours) at 05/12/2023 1616 Last data filed at 05/12/2023 1500 Gross per 24 hour Intake 615 ml Output 140 ml Net 475 ml Urine output 140cc barillas clear to pink tinged Physical Exam General: Well-appearing, no acute distress CV: Warm and well-perfused Pulm: Symmetric chest rise, good inspiratory effort on RA Abdomen: Soft, appropriately tender, non-distended : Barillas catheter in place draining urine as above Extremities: Normal. No cyanosis, clubbing, or edema Recent Labs 05/12/23 0954 WBC 4.69 HB 8.5* HCT 25.9* PLT 122* NA 137 K 5.5* CHLOR 102 CO2 23 BUN 57* CREAT 5.51* GLUC 119* [facility]-2024 NoteHNO ID: [id number] Author: DIANA HODGE APRN.YEAST CULTURE OPERATOR Service: ? Author Type: Nurse Street Car Inspector Type: Anesthesia Procedure Notes Filed: 05/12/2023 08:08 Note Text: ANESTHESIOLOGY PROCEDURE NOTE Airway General Information Procedure Start Time/Medication Administration: 05/12/2023 7:56 AM Patient location during procedure: OR Timeout Performed Pre-procedure: timeout performed Consent Obtained: Yes Patient identity confirmed: arm band, care count team clerk and patient Staffing YEAST CULTURE OPERATOR: Diana Hodge APRN.YEAST CULTURE OPERATOR Performed by: BOWEN Indications and Patient Condition Indications for airway management: anesthesia Preoxygenated: yes anesthesia circuit Patient position: sniffing Method: asleep Cricoid Pressure: No Manual In-Line Stabilization: No Difficult Mask: No Final Airway Details Final airway type: endotracheal airway Final Endotracheal Airway: ETT Cuffed: yes Successful intubation technique: video laryngoscopy Devices used: DigitalScirocco Endotracheal tube insertion site: oral Blade size: #3 ETT size (mm): 6.5 Measured from: teeth Measurement (cm): 21 Placement verified by: capnometry Cormack-Lehane Classification: grade I - full view of glottis Number of attempts at approach: 1 Failed airway: no Unrecognized esophageal intubation: no Airway not difficult SIGNATURE: Diana Hodge APRN.YEAST CULTURE OPERATOR PATIENT NAME: Lavinia Durand DATE: May 12, 2023 TIME: 8:08 AM CSN: [id number] NoteHNO ID: [id number] Author: Jorge Alberto Garcia RT(R) Service: ? Author Type: Technologist Type: Progress Notes Filed: 04/17/2023 4:15 PM Note Text: Radiology Service Progress Note DATE OF SERVICE: April 17, 2023 TIME: 4:14 PM PATIENT IDENTITY VERIFICATION COMPLETED USING TWO (2) STANDARD IDENTIFIERS: Name and Date of confirmed by patient verbally. FALL SCREENING: Has the patient had 2 falls in the last year or 1 fall with injury or currently using an Ambulatory Assistive Device (Walker, Cane, Wheelchair, Crutches, etc.)? No PATIENT GENDER DATA: Female. status: : No status: NO. PATIENT RELEVANT IMPLANT DATA REVIEWED: Yes ALLERGIES: Reviewed and unchanged CONTRAST ALLERGY: NO. EXAM: MRI - CONTRAST TYPE: GROUP II PERIPHERAL IV DATA: Ambulatory: A peripheral IV was started in the Right antecubital site with a Angio cath: 22 gauge. RADIOLOGY DEPARTMENT: MR; Exam(s) Completed: Body: MRUrogram SIGNATURE: RT Naz(R) PATIENT NAME: Lavinia Durand DATE: April 17, 2023 TIME: 4:14 [facility]12-20-2023 Miscellaneous Notes* Telephone Encounter - Abiel Smith MD - 04/16/2023 10:27 AM EST Patient not able to undergo CT Urogram due to elevated Cr. Will order MR Urogram for evaluation of upper tracts with history of hematuria and bladder cancer. Abiel Smith MD [facility]23 NoteHNO ID: [id number] Author: ?, ?, ? Service: ? Author Type: ? Type: Progress Notes Filed: 05/06/2023 11:29 Note Text: UNIVERSAL PROTOCOL / SAFETY CHECKLIST Procedure to be Performed: cysto Sign In: A Moment of CARE was completed. Personnel directly involved with the procedure wore the appropriate PPE (Personal Protective Equipment). No special equipment needed. Patient/Surrogate Stated/Verified: PATIENT VERIFIED(optional for EMERGENT procedures): Patient name, Date of , Relevant allergies, and The intended procedure Time Out Communication: Intended patient and procedure match the source documents. Consent documented and matches the intended procedure. No relevant labs, photos, and/or imaging studies were applicable for review. No correct side/site applicable for marking and visibility. No medications required for procedure. Fire risk assessed and interventions discussed. No implant(s) inserted. Sign Out: SIGN OUT (optional for EMERGENT procedures): No specimen collected. All instruments, equipment, possible retained foreign bodies accounted for. Post-procedure follow-up management communicated and Plan of Care Visit completed when applicable. Elliot Webster [facility]12-07-2023 NoteHNO ID: [id number] Author: YOVANI PEOPLES MD Service: ? Author Type: Physician Type: Procedures Filed: 05/06/2023 11:29 Note Text: CYSTOSCOPY NOTE HPI: 82 y/o F with history of TaHG UTUC s/p Robotic RIGHT Nephroureterectomy in 10/2020 and T1HG Bladder Recurrence 03/12/2021 s/p induction BCG. TaHG Bladder Recurrence 11/26/2021. Last cytology 03/07/2022 negative for HG UC. Patient has been experiencing gross hematuria. She presents today for cystoscopy. Procedure: The risks, benefits and alternative of cystoscopy were explained to and understood by the patient who consented to the procedure. The patient understands that there is a risk of bleeding, infection, and damage to the bladder and urethra. The patient's questions were answered and the patient signed informed consent. The patient was placed on the procedure table in the supine position and prepped and draped in the usual sterile fashion. 2% Lidocaine Jelly was placed per urethra as an anesthetic in the standard fashion. Once adequate local anesthesia was achieved, the tip of the flexible cystoscope was carefully placed into the urethra under direct visual guidance. The bladder was entered and careful taylor endoscopy was carried out. The posterior, superior and lateral ellis and dome of the bladder were all well visualized and the scope was retroflexed upon itself. At the conclusion of the procedure, the flexible cystoscope was removed atraumatically. The patient tolerated the procedure without complications. Findings as below: URETHRA: Meatus [] Normal [] Abnormal Urethra [] Normal [] Abnormal BLADDER NECK: [] Open, Normal [] Contracture [] Other -see below WITHIN THE BLADDER THERE WERE: (check all that apply) [] The patient's bladder was normal and without abnormality [x] Tumors [] Bladder stones [] Diverticuli [] Trabeculations [] Inflammation [] Erythema [] Other - see below BILATERAL Ureteral orifices were normal in position and appearance. URINE POC GLUCOSE UA (POCT) 100 04/03/2023 BILIRUBIN UA (POCT) Negative 04/03/2023 KETONE UA (POCT) Negative 04/03/2023 SPECIFIC GRAVITY UA (POCT) 1.020 04/03/2023 HEMOGLOBIN/BLOOD UA (POCT) Large 04/03/2023 PH UA (POCT) 8.5 04/03/2023 PROTEIN UA (POCT) >=300 04/03/2023 UROBILINOGEN UA (POCT) 0.2 04/03/2023 NITRITE UA (POCT) Negative 04/03/2023 LEUKOCYTES UA (POCT) Negative 04/03/2023 COLOR UA (POCT) Brown 04/03/2023 CLARITY UA (POCT) Cloudy 04/03/2023 Assessment: -Pt has been on dialysis for 4 months 3 times a week, she complains of hematuria. -The trigon area and the posterior wall of bladder is involved with large bladder tumor measuring 3 x 3 cm partially occluding the bladder neck. 1) Large Bladder Tumor Plan: 1) CT Urogram then schedule TURBT on 05/12/2022. ATTESTATION: By signing my name below, ILeesa, attest that this documentation has been prepared under the direction and in the presence of Yovani Peoples MD. Electronically signed:Columba Rey, April 03, 2023 1:57 PM Provider Attestation: I, Dr. Yovani Peoples personally performed the services described in this documentation. All medical record entries made by the columba were at my direction and in my presence. I have reviewed the chart and discharge instructions (if applicable) and agree that the record reflects my personal performance and is accurate and complete. Dr. Yovani Peoples MD May 06, 2023, [facility]06-15-[address] Titus [facility] October 10, 2022 12:19pm Note Date/Time October 10, 2022 7:15 am [facility] Medical Records Department [address] [place] [address] Instructions for Home/Discharge Instructions 10/10/22 0714 MR#: [id number] Acct: [id number] Name: LAVINIA DURAND Rep #:[id number] : 1940 81 From: Diana Titus MD PCP: Dr. Osmani Morgan MD Status:R [place] [facility] [place] Instructions Procedure Fistula Diet Discharge Diet: Renal Diet Activity Discharge Activity: May Not Drive (for 2-3 days or while taking narcotic pain medications.), May Shower (May shower in 3 days after elastic wrap is removed) and May Take a Tub Bath (in 5 days.) Lifting Restrictions: 5 pounds Keep extremity elevated above heart level: - (Keep arm elevated above the heart level for 3 days.) Additional Activity Instructions:: Leave Steri-Strips in place for 1 week please Dressing / Incision Call your doctor if your incision/area has: Continuous Slow Oozing, Sudden Increased Bleeding (apply pressure and call your doctor.), Increased Pain/ Swelling, Increased Redness and Foul Smelling Discharge Call your doctor if you observe: Fever of 101 or Higher Suture Line Care: Avoid Pulling/Pushing and Avoid Pinching/Bending Cleanse incision/area with: Keep Dressing Clean & Dry Additional Dressing/Incision Instructions:: Change or remove dressing in one day. May protect with a gauze bandaid. Follow Up Care Please Follow Up With: Diana Titus MD When: Call [phone] to make an appointment for suture removal and follow up in 7-10 days please Test Results: Test results from this visit will be discussed in further detail at your follow- up appointment, if applicable. Discharge Plan Admission Attending Provider: Diana Titus Primary Care Provider: Osmani Morgan Discharge Orders/Prescriptions Prescriptions: No Action insulin glargine [Lantus Solostar U-100 Insulin] 100 unit/mL (3 mL) insulin pen 7 unit SUBCUT QPM icosapent ethyl [Vascepa] 1 gram capsule 2 g PO BID Qty: 180 3RF hydralazine 50 mg tablet 50 mg PO .QID 90 Days Qty: 360 3RF gabapentin 100 mg capsule 200 mg PO TID 90 Days Qty: 540 3RF Rx Instructions: bid to tid as needed doxazosin [Cardura] 2 mg tablet 2 mg PO BID 90 Days Qty: 180 3RF amlodipine 5 mg tablet 5 mg PO BID 90 Days Qty: 180 3RF (DME) Juxta Lite See Rx Instructions .Route .MEDSUPPLY Qty: 2 4RF Rx Instructions: As directed multivitamin Tablet 1 tab PO DAILY carvedilol 12.5 mg Tablet 12.5 mg PO BID Rx Instructions: must administer with a meal/food famotidine 40 mg Tablet 40 mg PO DAILY Vitamin C 1,000 mg Tablet Extended Release 1,000 mg PO DAILY levothyroxine 25 mcg Tablet 25 mcg PO DAILY pantoprazole 40 mg Tablet,Delayed Release (Dr/Ec) 40 mg PO PRN PRN (Reason: Indigestion) folic acid 1 mg Tablet 1 mg PO DAILY Lumigan 0.01 % Drops 1 drp EACH EYE QHS furosemide [Lasix] 40 mg tablet 40 mg PO QWEEK Rx Instructions: q acetaminophen [Tylenol] 325 mg Capsule 650 mg PO QHS Referrals / Follow Up: Osmani Morgan MD [Primary Care Provider] - Disposition Disposition (needs filled in before D/C Order can be placed): Home, Self Care 10/10/22 1219<Electronically signed by Diana Titus MD>Diana Titus MD CC: Dr. Osmani Morgan MD ~ Signed [facility] Work Phone: [phone]) 530-914506-15-2023 Procedure [facility] 10-10-2022 History and physical note Author Dr. Titus [facility] October 10, 2022 7:14am Note Date/Time October 10, 2022 7:14 am [facility] Medical Records Department [address] [place] [id number] History & Physical Exam 10/10/2213 MR#: [id number] Acct: [id number] Name: LAVINIA DURAND Rep #:[id number] : 1940 81 From: Diana Titus MD PCP: Dr. Osmani Morgan MD Status:R [facility] Location: [place] [address] History and Physical Date of Admission: 10/10/22 Chief Complaint: fistula f/u Allergies adalimumab [From Humira] Allergy (Verified 08/22/22 09:40) Hives Medications ascorbic acid (vitamin C) 1,000 mg tablet,extended release (Vitamin C ER) 1,000 mg PO Q12H 06/13/22 [History Confirmed 08/30/22] bimatoprost 0.01 % eye drops (Lumigan) 1 drp EACH EYE DAILY 06/13/22 [History Confirmed 08/30/22] carvedilol 12.5 mg tablet 12.5 mg PO BID 06/13/22 [History Confirmed 08/30/22] famotidine 40 mg tablet 40 mg PO DAILY 06/13/22 [History Confirmed 08/30/22] folic acid 1 mg tablet 1 mg PO DAILY 06/13/22 [History Confirmed 08/30/22] levothyroxine 25 mcg tablet 25 mcg PO DAILY 06/13/22 [History Confirmed 08/30/22] multivitamin 1 tab PO DAILY 06/13/22 [History Confirmed 08/30/22] pantoprazole 40 mg tablet,delayed release 40 mg PO PRN PRN Indigestion 06/13/22 [History Confirmed 08/30/22] Juxta Lite #2 ea 08/15/22 [Rx Confirmed 08/30/22] amlodipine 5 mg tablet 5 mg PO BID 3 months #180 tabs 08/15/22 [Rx Confirmed 08/30/22] doxazosin 2 mg tablet (Cardura) 2 mg PO BID 3 months #180 tabs 08/15/22 [Rx Confirmed 08/30/22] furosemide 40 mg tablet (Lasix) 40 mg PO QWEEK 08/15/22 [History Confirmed 08/30/22] gabapentin 100 mg capsule 200 mg PO TID 3 months #540 caps 08/15/22 [Rx Confirmed 08/30/22] hydralazine 50 mg tablet 50 mg PO .QID 3 months #360 tabs 08/15/22 [Rx Confirmed 08/30/22] icosapent ethyl 1 gram capsule (Vascepa) 2 g PO BID #180 caps 08/15/22 [Rx Confirmed 08/30/22] insulin glargine 100 unit/mL (3 mL) subcutaneous pen (Lantus Solostar U-100 Insulin) 7 unit subcut QPM 08/15/22 [History Confirmed 08/30/22] hydrocodone-acetaminophen 5-325mg 5mg-325mg 1 tab PO Q8H PRN pain 2 days #6 tabs08/22/22 [Rx Confirmed 08/30/22] PFSH Medical History?(Updated 08/21/22 @ 09:45 by Thelma Magdaleno) Anemia Bilateral lower extremity edema Cancer Cardiology follow-up encounter Chronic kidney disease CKD (chronic kidney disease) stage 5, GFR less than 15 ml/min Dietary restriction Gastric reflux Glaucoma Health care maintenance Heart failure History of echocardiogram History of edema History of renal disease History of stress test Hx of fracture of wrist Hyperlipidemia Hypertension Insulin dependent diabetes mellitus Kidney failure Lumbar spinal stenosis Macular degeneration Non-smoker Osteoporosis Post-menopausal Rheumatoid arthritis Shortness of breath on exertion Thyroid disease Type 2 diabetes mellitus Vision problems Wears glasses Surgical History? History of bladder surgery History of nephrectomy Hx of colonoscopy S/P partial hysterectomy S/P total knee arthroplasty S/P vein stripping Family History?(Updated 08/15/22 @ 13:36 by Joanne Benson) Mother Heart disease Hypertension OsteoporosisFather CVA (cerebral vascular accident) Hypertension Social History?(Updated 08/01/22 @ 10:02 by Tania Aparicio) Smoking Status:? Never smoker alcohol intake:? never HPI HPI HPI: 81-year-old female.? She has stage IV chronic renal disease.? She is status poststage I left upper extremity brachial to basilic arteriovenous hemodialysis fistula creation on August 22, 2022.? She returns for postoperative follow-up in anticipation of plans for staged approach and transposition. Has no specific complaints today.? She thinks that her left hand is slightly more cool.? She simply places something over to stay dry.? She has had some bleeding onto her dressing that appears to be old and dry. Exam Const General: cooperative, comfortable and no acute distress HENMT Head: normal to inspection Eyes General: appearance normal, both eyes and all related structures Chest Chest palpation & inspection: normal inspection of the chest Resp Effort & Inspection: normal respiratory effort Auscultation: clear to auscultation bilaterally Cardio Rate: regular rate Rhythm: regular rhythm GI Palpation: soft Musc Cervical Spine: normal cervical lordosis Neuro General: patient alert, patient awake and patient oriented x3 Extrem General: no calf tenderness Other: Left upper extremity has a healing oblique incision at the antecubital space.? Slight amount of swelling there.? There is a very strong pulse and thrill withinthe upper arm basilic vein. Psych Appearance: grossly normal Assessment and Plan Assessment and Plan (1) CKD (chronic kidney disease) stage 5, GFR less than 15 ml/min: ?Status:?Chronic ?Plan: Subsequent to stage I left upper extremity basilic vein to brachial artery arteriovenous fistula creation she appears to be having a good initial result.? Inspection of her left hand reveals an intact 3+ radial pulse and a hand that feels symmetric and warm to me.? I propose for her stage II transposition left upper arm basilic vein to brachial artery AV fistula creation.? She is aware of the technique benefits risk complication alternatives.? We will schedule and proceed at her discretion. Copy: Dr Lisette Cason I have reviewed the patient's history and physical. She is complaining of some coolness of her left hand however on clinical examination the hand is clinicallywarm and she has a good strong 3+ left radial pulse. There is good motor function. The left upper arm has a wonderful pulse thrill and bruit. We will now proceed with transposition left upper arm basilic vein to brachial artery arteriovenous hemodialysis fistula creation. Diana Titus M.D., F.A.C.S. 10/10/22 0714 <Electronically signed by Diana Titus MD> Cosigner Signature (if applicable): CC: Dr. Osmani Morgan MD; Dr. Diana Titus MD~ Signed [facility] Work Phone: [phone]) 113-799001-26-2023 Summary of episode note LAVINIA DURAND :1940 Visit Date:05/23/2022 Your Visit Summary Tests Performed .Auto Differential .Neutro Absolute CBC Ferritin -- Results Pending -- Iron Studies -- Results Pending -- PTH, Intact -- Results Pending -- Renal Function Panel -- Results Pending -- You will be contacted within 72 hours with your results. Your Care Team Attending Physician - LORRIE MCKNIGHT MD Primary Care Physician - SHIRA ROY MD Vitals Temperature (Oral) 36.4 C Heart Rate 65 Blood Pressure 133/52 Height 152.4 cm What to do next Instructions From Your Doctor You have received the following therapy today: Labs drawn and retacrit Medications What How Much When Instructions Unchanged acetaminophen (Tylenol 325 mg oral tablet) 2 tab(s) by mouth Every 4 hours as needed for as needed for pain Unchanged amLODIPine (amLODIPine 5 mg oral tablet) 1 tab(s) by mouth Two (2) times a day Unchanged ascorbic acid (Vitamin C 1000 mg oral tablet) 1 tab(s) by mouth Once a day Unchanged calcitriol (calcitriol 0.25 mcg oral capsule) 1 cap by mouth Once a day Unchanged carvedilol (carvedilol 12.5 mg oral tablet) 1 tab(s) by mouth Two (2) times a day Duration: 90 Days Unchanged cloNIDine (cloNIDine 0.2 mg oral tablet) 1 tab(s) by mouth Every 6 hours as needed for Anxiety Unchanged doxazosin (Cardura 1 mg oral tablet) 1 tab(s) by mouth Two (2) times a day Duration: 30 Days Unchanged doxazosin (doxazosin 2 mg oral tablet) 1 tab(s) by mouth Two (2) times a day Unchanged famotidine (Pepcid 40 mg oral tablet) 1 tab(s) by mouth Daily at bedtime Unchanged gabapentin (gabapentin 100 mg oral capsule) 2 cap by mouth Two (2) times a day Unchanged hydrALAZINE (hydrALAZINE 50 mg oral tablet) 1 tab(s) by mouth Four (4) times a day Duration: 90 Days Unchanged insulin glargine (Lantus Solostar Pen 100 units/ mL 3 mL Pen) 9 unit(s) Subcutaneous Daily at bedtime Unchanged levothyroxine (levothyroxine 25 mcg (0.025 mg) oral tablet) 2 tab(s) by mouth Every Friday and Friday Unchanged levothyroxine (levothyroxine 25 mcg (0.025 mg) oral tablet) 1 tab(s) by mouth Daily Friday through Friday Unchanged multivitamin (Multiple Vitamins oral tablet) 1 tab(s) by mouth Daily at bedtime Unchanged omega-3 polyunsaturated fatty acids (Fish Oil 1000 mg oral capsule) 2 cap by mouth Two (2) times a day Unchanged pantoprazole (pantoprazole 40 mg oral enteric coated tablet) 1 tab(s) by mouth Once a day before a meal Unchanged predniSONE (predniSONE 10 mg oral tablet) 1 tab(s) by mouth Once a day as needed for Control symptoms Duration: 3 Days Test Results .Auto Differential (05/23/2022) Neutrophil % - 66.4 % Lymphocyte % - 22.1 % Monocyte % - 6.6 % Eosinophil % - 4.4 % Basophil % - 0.5 % Lymphocyte, Absolute - 1.4 10^3/mcL Monocyte, Absolute - 0.4 10^3/mcL Eosinophil, Absolute - 0.310^3/mcL Basophil, Absolute - 0.0 10^3/mcL .Neutro Absolute (05/23/2022) Neutrophil, Absolute - 4.1 10^3/mcL CBC (05/23/2022) WBC - 6.3 10^3/mcL RBC - 2.66 10^6/mcL Hgb - 8.3 G/dL Hct - 25.1 % MCV - 94.4 fL MCH - 31.3 pg MCHC- 33.2 G/dL RDW - 14.2 % Platelet - 165 10^3/mcL MPV - 8.6 fL Allergies Humira Additional Information VACCINATE! IT SAVES LIVES! Members of the community who have not yet received the COVID-19 vaccine and would like to receive it can visit one of [facility] vaccine clinics. There are many vaccine clinic locations within the [facility]. For locations and available times, please visit [email or web address]. It is important to note that some COVID mobile vaccine clinics are held outdoors and may be canceled in rainy orstormy conditions. To learn more about pediatric vaccinations (ages 5-11), we invite you to visit the [facility] webpage. [email or web address] learn more about the COVID-19 vaccine, we invite you to visit the [place] website for a list of frequently asked questions. [email or web address] [place] [facility] Patient Portal Access Instructions: Stay connected with your healthcare team and access your personal medical information anytime with the [facility] Patient Portal.If you would like a full copy of your medical records, please contact the [facility] Medical Records Department, Friday through Friday between 8a.m. and 4:30p.m. Please follow the directions below to access the portal: 1.Access the email account you provided upon registration to the [facility].2.Look for an invitation email from [facility].3.Open the email and access the invitation link: Accept Invitation to [facility].Fill in the required diaz to create your account. Sign into [email or web address] with your username and password that you created in the above steps to stay up to date. You can then view a summary of results, a summary of your visits, and the ability to download your summaries to your computer or send the information securely to a physician. Remember that your healthcare information is confidential, so carefully consider who you will allow to register on the [place] [facility] Patient Portal for access to your information. You can also access the [place] [facility] Patient Portal on the [employer]. Simply click on Health Records under VersionEye and then click on the [facility] logo. HOW TO SAFELY DISPOSE OF PRESCRIPTION MEDICATIONS Please use one of the following methods to safely dispose of your unused medications. 1.Use a drug disposal kit: the drug disposal pouch allows you to safely discard your old and unuseddrugs. Ask your nurse to give you one when you are discharged.2.Visit a local take-back location: Many local pharmacies and police departments have programs that collect old and unwanted prescriptiondrugs. Call your local pharmacy or go to http://[email or web address] [email or web address] to find one close to you.3.Make use of household items: Use cat litter or old coffee grounds to dispose medications if other options arenot available. Mix your drugs with these household products, seal them in an airtight container andthrow it into the garbage. Call [facility]: [phone] to be sure your drugs can be disposed of in this way. Some medicines may require a different approach.4.Never flush your medications down the toilet. IF YOU HAVE BEEN PRESCRIBED AN OPIOID FOR PAIN If you have been prescribed an opioid (such as hydrocodone, oxycodone or morphine), it is critical to understand the possible side effects and risks of opioid pain medications. Even when taken as directed, opioids can have several side effects including: Tolerance, meaning you might need to take more of a medication for the same pain relief. Nausea, vomiting and/or constipation. Sleepiness, dizziness, dry mouth, confusion, depression or itching. Physical dependence, meaning you have withdrawal symptoms when a medication is stopped, can develop within a few days. KNOW YOUR RESPONSIBILITIES It is important to know exactly how much and how often to take the opioid pain medications you are prescribed. Never take opioids in higher amounts or more often than prescribed. Do not combine opioids with alcohol or other drugs that cause drowsiness, such as benzodiazepines, also known as benzos, including diazepam and alprazolam, muscle relaxants or sleep aids. Never sell or share prescription opioids. This is illegal. Store opioids in a secure place and out of reach of others (including children, family, friends and visitors). The last page of this document has been signed and retained as a CHART COPY. Signatures Patient Education Materials Medication Leaflets My discharge plan and instructions have been reviewed and explained to me and I,LAVINIA DURAND understand my current condition and have read and understand these discharge instructions. I have received a written copy of the plan/instructions. If I have questions, I am aware that I should contact my doctor. 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 It causes swelling in the airways of the lungs. Mucus and fluid may also build up inside the airways. One type of pneumonia can happen while a person is in a hospital. A different type can happen when a person is not in a hospital (community-acquired pneumonia). What are the causes? This condition is caused by germs (viruses, bacteria, or fungi). Some types of germs can be passed from one person to another. This can happen when you breathe in droplets from the cough or sneeze ofan infected person. What increases the risk? You are more likely to develop this condition if you: Have a long-term (chronic) disease, such as: ?Chronic obstructive pulmonary disease (COPD). ?Asthma. ?Cystic fibrosis. ?Congestive heart failure. ?Diabetes. ?Kidney disease. Have HIV. Have sickle cell disease. Have had your spleen removed. Do not take good care of your teeth and mouth (poor dental hygiene). Have a medical condition that increases the risk of breathing in droplets from your own mouth and nose. Have a weakened body defense system (immune system). Are a smoker. Travel to areas where the germs that cause this illness are common. Are around certain animals or the places they live. What are the signs or symptoms? A dry cough. A wet (productive) cough. Fever. Sweating. Chest pain. This often happens when breathing deeply or coughing. Fast breathing or trouble breathing. Shortness of breath. Shaking chills. Feeling tired (fatigue). Muscle aches. How is this treated? Treatment for this condition depends on many things. Most adults can be treated at home. In some cases, treatment must happen in a hospital. Treatment may include: Medicines given by mouth or through an IV tube. Being given extra oxygen. Respiratory therapy. In rare cases, treatment for very bad pneumonia may include: Using a machine to help you breathe. Having a procedure to remove fluid from around your lungs. Follow these instructions at home: Medicines Take vsjf-jnt-zyilhqd and prescription medicines only as told by your doctor. ?Only take cough medicine if you are losing sleep. If you were prescribed an antibiotic medicine, take it as told by your doctor. Do not stop taking the antibiotic even if you start to feel better. General instructions Sleep with your head and neck raised (elevated). You can do this by sleeping in a recliner or by putting a few pillows under your head. Rest as needed. Get at least 8 hours of sleep each night. Drink enough water to keep your pee (urine) pale yellow. Eat a healthy diet that includes plenty of vegetables, fruits, whole grains, low-fat dairy products, and lean protein. Do not use any products that contain nicotine or tobacco. These include cigarettes, e-cigarettes, and chewing tobacco. If you need help quitting, ask your doctor. Keep all follow-up visits as told by your doctor. This is important. How is this prevented? A shot (vaccine) can help prevent pneumonia. Shots are often suggested for: People older than 65 years of age. People older than 19 years of age who: ?Are having cancer treatment. ?Have long-term (chronic) lung disease. ?Have problems with their body's defense system. You may also prevent pneumonia if you take these actions: Get the flu (influenza) shot every year. Go to the dentist as often as told. Wash your hands often. If you cannot use soap and water, use hand secret code expert. Contact a doctor if: You have a fever. You lose sleep because your cough medicine does not help. Get help right away if: You are short of breath and it gets worse. You have more chest pain. Your sickness gets worse. This is very serious if: ?You are an older adult. ?Your body's defense system is weak. You cough up blood. Summary Pneumonia is an infection of the lungs. Most adults can be treated at home. Some will need treatment in a hospital. Drink enough water to keep your pee pale yellow. Get at least 8 hours of sleep each night. This information is not intended to replace advice given to you by your health care provider. Make sure you discuss any questions you have with your health care provider. Document Released: 09/30/2008 Document Revised: 08/04/2019 Document Reviewed: 12/10/2018 [employer] Patient Education 2020 [employer]. Follow Up Care 03/14/2022 18:53:40 With:[facility] Address:Unknown When: Unknown Comments:They will call you before they come out. Call [phone] with any questions or concerns. Home physical therapy and occupational theray have been arranged to see you at your son's home.RN/Social will resume . With:PJ ORLANDO, Internal Medicine, [facility], [place] Address: [address] Business (1) When:1-2 days Comments:Please call the office to schedule a follow up appointment [facility] 11-22-2022 Note Discharge Instructions Thank you for allowing [facility] to assist you with your healthcare needs. The following is importantdischarge information regarding your hospital visit. Your Care Team SHIRA ROY MD Your Diagnosis Lethargy What to do next Follow Up Appointments Follow Up with PJ ORLANDO, Internal Medicine, [facility], [place] When Within 1-2 days Why: Please call the office to schedule a follow up appointment Where: [facility] [address] [place] [address]- Business (1) Follow Up with [facility] When Why: They will call you before they come out. Call [phone] with any questions or concerns. Home physical therapy and occupational theray have been arranged to see you at your son's home. The Following Activity and Diet Have Been Ordered for You Discharge Activity - Ordered -- Resume your pre-hospitalization activity, 03/19/22 12:39:00 EST Discharge Diet - Ordered -- No changes were made to your diet during your hospital stay. Please resume your pre hospitalization diet on discharge., 03/19/22 12:39:00 EST The Following Equipment Has Been Ordered for You No qualifying data available. The Following Treatments Have Been Ordered for You Discharge Labs No qualifying data available. Discharge Radiology No qualifying data available. Other Therapies No qualifying data available. Post Acute Orders No qualifying data available. Someone Will Contact You Regarding These Home Health Referrals No home referrals have been ordered for you. No one will call you. Allergies Humira Immunizations This Visit Given Vaccine Dateinfluenza virus vaccine, inactivated 03/16/2022 Medications Please ask your primary doctor or pharmacist before taking any other medication not listed, including over the counter drugs, herbal medications, vitamins and or supplements as they may interact withyour home medications. What How Much When Instructions Last Dose New cefdinir (cefdinir 300 mg oral capsule) 1 cap by mouth Once a day Duration: 5 Days Pickup at [facility] #[id number] Changed amLODIPine (amLODIPine 5 mg oral tablet) 1 tab(s) by mouth Two (2) times a day Pickup at [facility] #[id number] Changed doxazosin (Cardura 1 mg oral tablet) 1 tab(s) by mouth Two (2) times a day Duration: 30 Days Pickup at [facility] #[id number] Changed doxazosin (doxazosin 2 mg oral tablet) 1 tab(s) by mouth Two (2) times a day Changed predniSONE (predniSONE 10 mg oral tablet) 1 tab(s) by mouth Once a day as needed for Control symptoms Duration: 3 Days Pickup at [facility] [employer] [id number] Unchanged acetaminophen (Tylenol 325 mg oral tablet) 2 tab(s) by mouth Every 4 hours as needed for as needed for pain Unchanged ascorbic acid (Vitamin C 1000 mg oral tablet) 1 tab(s) by mouth Once a day Unchanged calcitriol (calcitriol 0.25 mcg oral capsule) 1 cap by mouth Once a day Unchanged carvedilol (carvedilol 12.5 mg oral tablet) 1 tab(s) by mouth Two (2) times a day Duration: 90 Days Unchanged cloNIDine (cloNIDine 0.2 mg oral tablet) 1 tab(s) by mouth Every 6 hours as needed for Anxiety Unchanged famotidine (Pepcid 40 mg oral tablet) 1 tab(s) by mouth Daily at bedtime Unchanged gabapentin (gabapentin 100 mg oral capsule) 2 cap by mouth Two (2) times a day Unchanged hydrALAZINE (hydrALAZINE 50 mg oral tablet) 1 tab(s) by mouth Four (4) times a day Duration: 90 Days Pickup at [facility] #[id number] Unchanged insulin glargine (Lantus Solostar Pen 100 units/ mL 3 mL Pen) 9 unit(s) Subcutaneous Daily at bedtime Unchanged levothyroxine (levothyroxine 25 mcg (0.025 mg) oral tablet) 2 tab(s) by mouth Every Friday and Friday Unchanged levothyroxine (levothyroxine 25 mcg (0.025 mg) oral tablet) 1 tab(s) by mouth Daily Friday through Friday Unchanged multivitamin (Multiple Vitamins oral tablet) 1 tab(s) by mouth Daily at bedtime Unchanged omega-3 polyunsaturated fatty acids (Fish Oil 1000 mg oral capsule) 2 cap by mouth Two (2) times a day Unchanged pantoprazole (pantoprazole 40 mg oral enteric coated tablet) 1 tab(s) by mouth Once a day before a meal Pharmacy Information [facility] [employer] [facility] [id number] [address], [place] [id number] [phone] What How Much When Comments Stop Taking amoxicillin-clavulanate (amoxicillin- clavulanate 500 mg-125mg oral tablet) 1 tab(s) by mouth Every 12 hours Duration: 7 Days Stop Taking bimatoprost ophthalmic (Lumigan 0.01% ophthalmic solution (NF)) 1 Drops Both eyes Daily at bedtime Please take this list to your next doctor s visit. Bring all medications you take, including over the counter medications, herbals and other supplements with you to your doctor s visit. Patients and families are reminded to discard old lists and to update any records with all medication providers or retail pharmacies. Education Materials Community-Acquired Pneumonia, Adult Pneumonia is an infection of the lungs. It causes swelling in the airways of the lungs. Mucus and fluid may also build up inside the airways. One type of pneumonia can happen while a person is in a hospital. A different type can happen when a person is not in a hospital (community-acquired pneumonia). What are the causes? This condition is caused by germs (viruses, bacteria, or fungi). Some types of germs can be passed from one person to another. This can happen when you breathe in droplets from the cough or sneeze ofan infected person. What increases the risk? You are more likely to develop this condition if you: Have a long-term (chronic) disease, such as: ? Chronic obstructive pulmonary disease (COPD). ? Asthma. ? Cystic fibrosis. ? Congestive heart failure. ? Diabetes. ? Kidney disease. Have HIV. Have sickle cell disease. Have had your spleen removed. Do not take good care of your teeth and mouth (poor dental hygiene). Have a medical condition that increases the risk of breathing in droplets from your own mouth and nose. Have a weakened body defense system (immune system). Are a smoker. Travel to areas where the germs that cause this illness are common. Are around certain animals or the places they live. What are the signs or symptoms? A dry cough. A wet (productive) cough. Fever. Sweating. Chest pain. This often happens when breathing deeply or coughing. Fast breathing or trouble breathing. Shortness of breath. Shaking chills. Feeling tired (fatigue). Muscle aches. How is this treated? Treatment for this condition depends on many things. Most adults can be treated at home. In some cases, treatment must happen in a hospital. Treatment may include: Medicines given by mouth or through an IV tube. Being given extra oxygen. Respiratory therapy. In rare cases, treatment for very bad pneumonia may include: Using a machine to help you breathe. Having a procedure to remove fluid from around your lungs. Follow these instructions at home: Medicines Take erjz-gnl-udkwapy and prescription medicines only as told by your doctor. ? Only take cough medicine if you are losing sleep. If you were prescribed an antibiotic medicine, take it as told by your doctor. Do not stop taking the antibiotic even if you start to feel better. General instructions Sleep with your head and neck raised (elevated). You can do this by sleeping in a recliner or by putting a few pillows under your head. Rest as needed. Get at least 8 hours of sleep each night. Drink enough water to keep your pee (urine) pale yellow. Eat a healthy diet that includes plenty of vegetables, fruits, whole grains, low-fat dairy products, and lean protein. Do not use any products that contain nicotine or tobacco. These include cigarettes, e-cigarettes, and chewing tobacco. If you need help quitting, ask your doctor. Keep all follow-up visits as told by your doctor. This is important. How is this prevented? A shot (vaccine) can help prevent pneumonia. Shots are often suggested for: People older than 65 years of age. People older than 19 years of age who: ? Are having cancer treatment. ? Have long-term (chronic) lung disease. ? Have problems with their body's defense system. You may also prevent pneumonia if you take these actions: Get the flu (influenza) shot every year. Go to the dentist as often as told. Wash your hands often. If you cannot use soap and water, use hand secret code expert. Contact a doctor if: You have a fever. You lose sleep because your cough medicine does not help. Get help right away if: You are short of breath and it gets worse. You have more chest pain. Your sickness gets worse. This is very serious if: ? You are an older adult. ? Your body's defense system is weak. You cough up blood. Summary Pneumonia is an infection of the lungs. Most adults can be treated at home. Some will need treatment in a hospital. Drink enough water to keep your pee pale yellow. Get at least 8 hours of sleep each night. This information is not intended to replace advice given to you by your health care provider. Make sure you discuss any questions you have with your health care provider. Document Released: 09/30/2008 Document Revised: 08/04/2019 Document Reviewed: 12/10/2018 Elsevier Patient Education 2020 [employer] Additional Information VACCINATE! IT SAVES LIVES! Members of the community who have not yet received the COVID-19 vaccine and would like to receive it can visit one of [facility] vaccine clinics. There are many vaccine clinic locations within the [facility]. For locations and available times, please visit [email or web address] It is important to note that some COVID mobile vaccine clinics are held outdoors and may be canceled in rainy or stormy conditions. To learn more about pediatric vaccinations (ages 5-11), we invite you to visit the [employer] [facility] webpage. [email or web address] [email or web address].htmlTo learn more about the COVID-19 vaccine, we invite you to visit the [employer] website for a list of frequently asked questions. [email or web address] [facility] Patient Portal Access Instructions: Stay connected with your healthcare team and access your personal medical information anytime with the [employer] Patient Portal.If you would like a full copy of your medical records, please contact the [facility] Medical Records Department, Friday through Friday between 8a.m. and 4:30p.m. Please follow the directions below to access the portal: 1.Access the email account you provided upon registration to the [facility].2.Look for an invitation email from [facility].3.Open the email and access the invitation link: Accept Invitation to [facility]4.Fill in the required diaz to create your account. Sign into [email or web address] with your username and password that you created in the above steps to stay up to date. You can then view a summary of results, a summary of your visits, and the ability to download your summaries to your computer or send the information securely to a physician. Remember that your healthcare information is confidential, so carefully consider who you will allow to register on the [facility] Patient Portal for access to your information. You can also access the [employer] Patient Portal on the [employer] carol ann. Simply click on Health Records under [employer] and then click on the [employer] logo. HOW TO SAFELY DISPOSE OF PRESCRIPTION MEDICATIONS Please use one of the following methods to safely dispose of your unused medications. 1.Use a drug disposal kit: the drug disposal pouch allows you to safely discard your old and unuseddrugs. Ask your nurse to give you one when you are discharged.2.Visit a local take-back location: Many local pharmacies and police departments have programs that collect old and unwanted prescriptiondrugs. Call your local pharmacy or go to http://[employer]earworks.Sophia Search/5Q2Nr9i to find one close to you.3.Make use of household items: Use cat litter or old coffee grounds to dispose medications if other options arenot available. Mix your drugs with these household products, seal them in an airtight container andthrow it into the garbage. Call [facility]: [phone] to be sure your drugs can be disposed of in this way. Some medicines may require a different approach.4.Never flush your medications down the toilet. IF YOU HAVE BEEN PRESCRIBED AN OPIOID FOR PAIN If you have been prescribed an opioid (such as hydrocodone, oxycodone or morphine), it is critical to understand the possible side effects and risks of opioid pain medications. Even when taken as directed, opioids can have several side effects including: Tolerance, meaning you might need to take more of a medication for the same pain relief. Nausea, vomiting and/or constipation. Sleepiness, dizziness, dry mouth, confusion, depression or itching. Physical dependence, meaning you have withdrawal symptoms when a medication is stopped, can develop within a few days. KNOW YOUR RESPONSIBILITIES It is important to know exactly how much and how often to take the opioid pain medications you are prescribed. Never take opioids in higher amounts or more often than prescribed. Do not combine opioids with alcohol or other drugs that cause drowsiness, such as benzodiazepines, also known as benzos, including diazepam and alprazolam, muscle relaxants or sleep aids. Never sell or share prescription opioids. This is illegal. Store opioids in a secure place and out of reach of others (including children, family, friends and visitors). The last page of this document has been signed and retained as a CHART COPY. Signatures Patient Education Materials Community-Acquired Pneumonia, Adult, Xirp-ty-Qubi Medication Leaflets My discharge plan and instructions have been reviewed and explained to me and I,LAVINIA DURAND understand my current condition and have read and understand these discharge instructions. I have received a written copy of the plan/instructions. If I have questions, I am aware that I should contact my doctor. 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 Chart was reviewed. Discussed with nursing no active issues. Objective Vitals and Measurements T: 36.6 C (Oral) TMIN: 36.5 C (Oral) TMAX: 37.1 C (Oral) HR: 56(Apical) RR: 16 BP: 155/52 SpO2: 93% Intake and Output 7AM Yesterday to 7AM Today Intake and Output (Last 24 hours) Intake Red Blood Cells Amount Transfused 270.00 Output Urine Voided 250.00 Total Summary Total Intake 270.00 Total Output 250.00 Fluid Balance 20.00 Physical Exam Ext: No edemaGen: comfortable, No sign of any acute distress HEENT: No pallor, No icterus, no JVD, no carotid bruit Lungs: Clear to auscultation, good air entry CVS: Regular rate and rhythm, no murmur, no rubs Abd: Soft, nontender, no organomegaly, No flank pain Neuro: Alert, no deficits [1] Weight Dosing Weight: 59 kg (03/15/22) Dosing Weight: 59 kg (03/14/22) Medications Medications (22) Active Scheduled: (19) amLODIPine 5 mg tablet 5 mg 1 tab(s), Oral, BID ascorbic acid 500 mg tablet 1,000 mg 2 tab(s), Oral, qDay calcitriol 0.25 mcg Capsule 0.25 mcg 1 cap(s), Oral, qDay carvedilol 12.5 mg tablet 12.5 mg 1 tab(s), Oral, BID cefdinir 300 mg Capsule 300 mg 1 cap(s), Oral, qDay docusate sodium 100 mg Capsule 100 mg 1 cap(s), Oral, BID doxazosin 1 mg Tablet 3 mg 3 tab(s), Oral, BID famotidine 20 mg tablet 20 mg 1 tab(s), Oral, q48h gabapentin 100 mg Capsule 200 mg 2 cap(s), Oral, BID heparin 5,000 units/mL (1 mL) vial 5,000 unit(s) 1 mL, Subcutaneous, q12h hydralazine 50 mg Tablet 50 mg 1 tab(s), Oral, QID insulin glargine 10 unit(s) 0.1 mL, Subcutaneous, qHS insulin lispro 100 units/mL Soln (3 mL) Give 0-5 units/dose, Subcutaneous, TIDAC levothyroxine 25 mcg tablet 25 mcg 1 tab(s), Oral, Friday through Friday levothyroxine 50 mcg tablet 50 mcg 1 tab(s), Oral, Friday & Friday multivitamin tablet 1 tab(s), Oral, qHS [id number]-[id number] ethyl esters 1000 mg capsule 2,000 mg 2 cap(s), Oral, BID pantoprazole 40 mg EC tablet 40 mg 1 tab(s), Oral, qDayAC predniSONE 20 mg tablet 20 mg 1 tab(s), Oral, qDay Continuous: (0) PRN: (3) acetaminophen 325 mg Tablet 650 mg 2 tab(s), Oral, q4h clonidine 0.2 mg Tablet 0.2 mg 1 tab(s), Oral, q6h morphine 4 mg/mL 1mL INJ 3 mg 0.75 mL, IV Push, Once Lab Results 03/19 04:08 WBC: 13.5 H Hgb: 8.5 L Hct: 25.5 L Platelet: 165 Glucose Level: 128 H Sodium Level: 135 L Potassium Level: 4.4 BUN: 79.0 H Creatinine Lvl (s): 3.64 H 03/18 10:38 WBC: 11.2 H Hgb: 7.5 L Hct: 22.5 L Platelet: 168 Glucose Level: 189 H Sodium Level: 132 L Potassium Level: 5.0 BUN: 70.0 H Creatinine Lvl (s): 3.71 H EKG No qualifying data available. Assessment/Plan 1. Chronic kidney disease stage IV 2. Hypertension 3. Recent urinary tract infection 4. Failure to thrive 5. Rheumatoid arthritis 6. Anemia 7. History of diastolic heart failure 8. Metabolic acidosis 9. History of renal cancer status post right nephrectomy [2] Renal function at baseline. I personally checked her blood pressure at the bedside systolic blood pressure 147/ 82. Continue current antihypertensive medications. Hemoglobin stable status post PRBC transfusion. Maintain erythropoietin. Continue to follow labs. See orders. Orders: Blood Pressure [1] Progress Note; LORRIE MCKNIGHT MD 03/18/2022 10:23 EST [2] Progress Note; LORRIE MCKNIGHT MD 03/18/2022 10:23 EST Digitally Signed by LORRIE MCKNIGHT MD on 03/19/2022 11:29 AM [id number] Evaluation + Plan note Diagnostic Tests Pending * Stool for Occult Blood (Lab) 03/18/22 [facility] 11-21-2022 Internal medicine Note Date of Service 03/18/22 Chief Complaint Complaining of weakness today Subjective Pressure is running high today. She got 1 unit apartment apartment. Bun is gone up to 17 most likely due to steroid therapy. No hematemesis so far. Was treated for gastric bleed secondary to H. pylori in the past. To Dr. Anne about blood pressure and he recommended hydralazine 10 mg IV/increase thedose of Cardura to 3 mg twice daily. She did have some side effects from clonidine and Cardura in the past will be going to hold after discharge. No dizziness no chest pain no short of breath she is on Omnicef for small pneumonia although clinically no evidence of pneumonia. Objective Vitals and Measurements T: 36.5 C (Oral) TMIN: 36.5 C (Oral) TMAX: 37.1 C (Oral) HR: 76(Apical) RR: 18 BP: 200/78 SpO2: 97% sHe is pallor next cardiovascular normal heart sounds with rhonchi bilaterally abdomen distended bowel sounds normal Intake and Output 7AM Yesterday to 7AM Today Intake and Output (Last 24 hours) Intake Oral Intake 660.00 Output Urine Count 3.00 Total Summary Total Intake 660.00 Total Output 0.00 Fluid Balance 660.00 Physical Exam Weight Dosing Weight: 59 kg (03/15/22) Dosing Weight: 59 kg (03/14/22) Medications Medications (21) Active Scheduled: (18) amLODIPine 5 mg tablet 5 mg 1 tab(s), Oral, BID ascorbic acid 500 mg tablet 1,000 mg 2 tab(s), Oral, qDay calcitriol 0.25 mcg Capsule 0.25 mcg 1 cap(s), Oral, qDay carvedilol 12.5 mg tablet 12.5 mg 1 tab(s), Oral, BID cefdinir 300 mg Capsule 300 mg 1 cap(s), Oral, qDay doxazosin 1 mg Tablet 3 mg 3 tab(s), Oral, BID famotidine 20 mg tablet 20 mg 1 tab(s), Oral, q48h gabapentin 100 mg Capsule 200 mg 2 cap(s), Oral, BID heparin 5,000 units/mL (1 mL) vial 5,000 unit(s) 1 mL, Subcutaneous, q12h hydralazine 50 mg Tablet 50 mg 1 tab(s), Oral, QID insulin glargine 10 unit(s) 0.1 mL, Subcutaneous, qHS insulin lispro 100 units/mL Soln (3 mL) Give 0-5 units/dose, Subcutaneous, TIDAC levothyroxine 25 mcg tablet 25 mcg 1 tab(s), Oral, Friday through Friday levothyroxine 50 mcg tablet 50 mcg 1 tab(s), Oral, Friday & Friday multivitamin tablet 1 tab(s), Oral, qHS [id number]-[id number] ethyl esters 1000 mg capsule 2,000 mg 2 cap(s), Oral, BID pantoprazole 40 mg EC tablet 40 mg 1 tab(s), Oral, qDayAC predniSONE 20 mg tablet 20 mg 1 tab(s), Oral, qDay Continuous: (0) PRN: (3) acetaminophen 325 mg Tablet 650 mg 2 tab(s), Oral, q4h clonidine 0.2 mg Tablet 0.2 mg 1 tab(s), Oral, q6h morphine 4 mg/mL 1mL INJ 3 mg 0.75 mL, IV Push, Once Lab Results 03/18 10:38 WBC: 11.2 H Hgb: 7.5 L Hct: 22.5 L Platelet: 168 Glucose Level: 189 H Sodium Level: 132 L Potassium Level: 5.0 BUN: 70.0 H Creatinine Lvl (s): 3.71 H 03/17 06:27 WBC: 10.7 Hgb: 7.5 L Hct: 22.6 L Platelet: 171 Neutrophil %: 85.9 H Glucose Level: 204 H Sodium Level: 134 L Potassium Level: 5.0 BUN: 56.0 H Creatinine Lvl (s): 3.68 H EKG No qualifying data available. Assessment/Plan Lethargy Globin is 7.5. We are going to transfuse 1 unit of packed red cells. Patient also received Venofer and she was also getting Venofer as an outpatient at Dr. Ash's office Kidney disease creatinine level same bun is high due to steroid therapy for her rheumatoid arthritis, Pneumonia patient is on monthly Omnicef. Disease unControlled hypertension. Stable GI bleed to be going to check her stool for occult blood. Arthritis pain on the left arm right arm is much better we will reduce the dose of prednisone to 20mg Labs ordered in the morning. Intake and Output (Last 24 hours) Intake Oral Intake 660.00 Output Urine Count 3.00 Total Summary Total Intake 660.00 Total Output 0.00 Fluid Balance 660.00 Intake and Output (Last 24 hours) Intake Oral Intake 660.00 Output Urine Count 3.00 Total Summary Total Intake 660.00 Total Output 0.00 Fluid Balance 660.00 Orders: cefdinir, Start: 03/17/22 22:00:00 EST, Dose = 300 mg, = 1 cap(s), Oral, qDay, 0, 03/17/22 15:21:00EST cloNIDine, Start: 03/18/22 12:38:00 EST, Dose = 0.2 mg, = 1 tab(s), Oral, q6h, PRN, Blood pressure control, 03/18/22 12:38:00 EST doxazosin, Start: 03/18/22 13:08:00 EST, Dose = 3 mg, = 3 tab(s), Oral, BID, 03/18/22 13:08:00 EST insulin glargine, Start: 03/17/22 22:00:00 EST, Dose = 10 unit(s), = 0.1 mL, Subcutaneous, qHS, Rate: 0 mL/hr, minute(s), 0, 03/17/22 15:22:00 EST predniSONE, Start: 03/19/22 9:00:00 EST, Dose = 20 mg, = 1 tab(s), Oral, qDay, give with food, 0, 03/18/22 12:36:00 EST Admit to Inpatient Blood Transfusion RBC Crossmatch Red Blood Cell (Product) Sign Consent Stool for Occult Blood (Lab) Telemetry Monitoring - Continue Type and Screen Digitally Signed by SHIRA ROY MD on 03/18/2022 01:16 PM [id number] Nephrology Progress note Subjective Seen and examined. She is resting comfortably. Remains a little fatigued and tired. Chart was reviewed. Discussed with nursing. (03/16/2022 15:[address] Thorax w/o Contrast) IMPRESSION: 1. Trace left pleural effusion. 2. Mild left basilar airspace disease may reflect atelectasis or a small focus of pneumonia. 3. Scattered areas of mild air trapping which can be seen with small airways disease. RECOMMENDATIONS: 1.8 cm left thyroid nodule, enlarged from the prior. Nonemergent thyroid ultrasound recommended. [1] Objective Vitals and Measurements T: 36.6 C (Oral) TMIN: 36.5 C (Oral) TMAX: 37.1 C (Oral) HR: 75(Apical) RR: 18 BP: 160/78 SpO2: 93% Intake and Output 7AM Yesterday to 7AM Today Intake and Output (Last 24 hours) Intake Oral Intake 660.00 Output Urine Count 3.00 Total Summary Total Intake 660.00 Total Output 0.00 Fluid Balance 660.00 Physical Exam Ext: No edemaGen: comfortable, No sign of any acute distress HEENT: No pallor, No icterus, no JVD, no carotid bruit Lungs: Clear to auscultation, good air entry CVS: Regular rate and rhythm, no murmur, no rubs Abd: Soft, nontender, no organomegaly, No flank pain Neuro: Alert, no deficits Weight Dosing Weight: 59 kg (03/15/22) Dosing Weight: 59 kg (03/14/22) Medications Medications (21) Active Scheduled: (18) amLODIPine 5 mg tablet 5 mg 1 tab(s), Oral, BID ascorbic acid 500 mg tablet 1,000 mg 2 tab(s), Oral, qDay calcitriol 0.25 mcg Capsule 0.25 mcg 1 cap(s), Oral, qDay carvedilol 12.5 mg tablet 12.5 mg 1 tab(s), Oral, BID cefdinir 300 mg Capsule 300 mg 1 cap(s), Oral, qDay doxazosin 2 mg Tablet 2 mg 1 tab(s), Oral, BID famotidine 20 mg tablet 20 mg 1 tab(s), Oral, q48h gabapentin 100 mg Capsule 200 mg 2 cap(s), Oral, BID heparin 5,000 units/mL (1 mL) vial 5,000 unit(s) 1 mL, Subcutaneous, q12h hydralazine 50 mg Tablet 50 mg 1 tab(s), Oral, QID insulin glargine 10 unit(s) 0.1 mL, Subcutaneous, qHS insulin lispro 100 units/mL Soln (3 mL) Give 0-5 units/dose, Subcutaneous, TIDAC levothyroxine 25 mcg tablet 25 mcg 1 tab(s), Oral, Friday through Friday levothyroxine 50 mcg tablet 50 mcg 1 tab(s), Oral, Friday & Friday multivitamin tablet 1 tab(s), Oral, qHS aznoe-2-qvob ethyl esters 1000 mg capsule 2,000 mg 2 cap(s), Oral, BID pantoprazole 40 mg EC tablet 40 mg 1 tab(s), Oral, qDayAC predniSONE 20 mg tablet 20 mg 1 tab(s), Oral, BIDM Continuous: (0) PRN: (3) acetaminophen 325 mg Tablet 650 mg 2 tab(s), Oral, q4h clonidine 0.2 mg Tablet 0.2 mg 1 tab(s), Oral, q6h morphine 4 mg/mL 1mL INJ 3 mg 0.75 mL, IV Push, Once Lab Results 03/17 06:27 WBC: 10.7 Hgb: 7.5 L Hct: 22.6 L Platelet: 171 Neutrophil %: 85.9 H Glucose Level: 204 H Sodium Level: 134 L Potassium Level: 5.0 BUN: 56.0 H Creatinine Lvl (s): 3.68 H EKG No qualifying data available. Assessment/Plan 1. Chronic kidney disease stage IV 2. Hypertension 3. Recent urinary tract infection 4. Failure to thrive 5. Rheumatoid arthritis 6. Anemia 7. History of diastolic heart failure 8. Metabolic acidosis 9. History of renal cancer status post right nephrectomy No labs are available for today. Renal function seems to be relatively stable based on previous labs. Patient remains anemic with a hemoglobin of 7.5. We will check a stat H&H continue with IV Venofer. Might benefit from PRBC transfusion if okay with primary service. Otherwise she continues to remain weak. Would recommend PT OT evaluation. Follow labs. See orders. [1] CT Thorax w/o Contrast; SIVA FRANKS MD 03/16/2022 15:16 EST Digitally Signed by LORRIE MCKNIGHT MD on 03/18/2022 10:26 AM [id number] Note Date of Service 03/17/2020 Subjective Much better. Arthritic pain in the right arm is subsided. CT chest showed no pneumonia. Patient clinically feeling better she is getting Venofer and Dr. Jean adjusted her blood pressure medication Objective Vitals and Measurements T: 36.5 C (Oral) TMIN: 36.5 C (Oral) TMAX: 36.6 C (Oral) HR: 84(Apical) RR: 18 BP: 163/73 SpO2: 93% Intake and Output 7AM Yesterday to 7AM Today Intake and Output (Last 24 hours) Intake Oral Intake 300.00 Output Urine Count 4.00 Total Summary Total Intake 300.00 Total Output 0.00 Fluid Balance 300.00 Physical Exam Weight Dosing Weight: 59 kg (03/15/22) Dosing Weight: 59 kg (03/14/22) Medications Medications (22) Active Scheduled: (19) amLODIPine 5 mg tablet 5 mg 1 tab(s), Oral, BID ascorbic acid 500 mg tablet 1,000 mg 2 tab(s), Oral, qDay calcitriol 0.25 mcg Capsule 0.25 mcg 1 cap(s), Oral, qDay carvedilol 12.5 mg tablet 12.5 mg 1 tab(s), Oral, BID cefdinir 300 mg Capsule 300 mg 1 cap(s), Oral, BID doxazosin 2 mg Tablet 2 mg 1 tab(s), Oral, BID famotidine 20 mg tablet 20 mg 1 tab(s), Oral, q48h gabapentin 100 mg Capsule 200 mg 2 cap(s), Oral, BID heparin 5,000 units/mL (1 mL) vial 5,000 unit(s) 1 mL, Subcutaneous, q12h hydralazine 50 mg Tablet 50 mg 1 tab(s), Oral, QID insulin glargine 10 unit(s) 0.1 mL, Subcutaneous, qHS insulin lispro 100 units/mL Soln (3 mL) Give 0-5 units/dose, Subcutaneous, TIDAC iron sucrose 300 mg 15 mL, IV Piggyback, qDay levothyroxine 25 mcg tablet 25 mcg 1 tab(s), Oral, Friday through Friday levothyroxine 50 mcg tablet 50 mcg 1 tab(s), Oral, Friday & Friday multivitamin tablet 1 tab(s), Oral, qHS [id number] ethyl esters 1000 mg capsule 2,000 mg 2 cap(s), Oral, BID pantoprazole 40 mg EC tablet 40 mg 1 tab(s), Oral, qDayAC predniSONE 20 mg tablet 20 mg 1 tab(s), Oral, BIDM Continuous: (0) PRN: (3) acetaminophen 325 mg Tablet 650 mg 2 tab(s), Oral, q4h clonidine 0.2 mg Tablet 0.2 mg 1 tab(s), Oral, q6h morphine 4 mg/mL 1mL INJ 3 mg 0.75 mL, IV Push, Once Lab Results 03/17 06:27 WBC: 10.7 Hgb: 7.5 L Hct: 22.6 L Platelet: 171 Neutrophil %: 85.9 H Glucose Level: 204 H Sodium Level: 134 L Potassium Level: 5.0 BUN: 56.0 H Creatinine Lvl (s): 3.68 H EKG EKG - Completed -- 03/16/22 7:30:00 EST Assessment/Plan Lethargy 1. Back to baseline Started arthritis responded nicely to steroid Patient: Oral prednisone Glycemia due to steroid therapy adjusted her insulin dose Blood pressure high Dr. Jean and put her on amlodipine. Kidney disease Anemia patient is getting benefit Hypertension uncontrolled Diabetes mellitus Discharge home I do not think patient needs Omnicef. Patient will finish a few more days of amoxicillin as prescribed by Dr. Anne. Orders: cefdinir, Start: 03/17/22 22:00:00 EST, Dose = 300 mg, = 1 cap(s), Oral, BID, 03/17/22 15:21:00 EST insulin glargine, Start: 03/17/22 22:00:00 EST, Dose = 10 unit(s), = 0.1 mL, Subcutaneous, qHS, Rate: 0 mL/hr, minute(s), 0, 03/17/22 15:22:00 EST insulin lispro (HumaLOG), Start: 03/16/22 17:00:00 EST, Give 0-5 units/dose, Subcutaneous, TIDAC, 0, 03/16/22 15:31:00 EST predniSONE, Start: 03/17/22 17:00:00 EST, Dose = 20 mg, = 1 tab(s), Oral, BIDM, give with food, 03/17/22 15:21:00 EST Admit to Inpatient Digitally Signed by SHIRA ROY MD on 03/17/2022 04:00 PM [id number] Infectious disease Progress note Date of Service March 17, 2022 Chief Complaint Shortness of breath and sleepiness is improving Subjective Feels better with less cough and no shortness of breath, denies hemoptysis or night sweats Objective Vitals and Measurements T: 36.6 C (Oral) TMIN: 36.5 C (Oral) TMAX: 36.6 C (Oral) HR: 71 RR: 16 BP: 186/65 SpO2: 96% Intake and Output 7AM Yesterday to 7AM Today Intake and Output (Last 24 hours) Intake Oral Intake 300.00 Output Urine Count 4.00 Total Summary Total Intake 300.00 Total Output 0.00 Fluid Balance 300.00 Physical Exam Awake alert oriented Lungs are clear Heart is in regular rhythm Upper and lower extremity without acute changes Abdomen with no tenderness No acute deficits Weight Dosing Weight: 59 kg (03/15/22) Dosing Weight: 59 kg (03/14/22) Medications Medications (22) Active Scheduled: (19) amLODIPine 5 mg tablet 5 mg 1 tab(s), Oral, BID ascorbic acid 500 mg tablet 1,000 mg 2 tab(s), Oral, qDay calcitriol 0.25 mcg Capsule 0.25 mcg 1 cap(s), Oral, qDay carvedilol 12.5 mg tablet 12.5 mg 1 tab(s), Oral, BID doxazosin 2 mg Tablet 2 mg 1 tab(s), Oral, BID epoetin miguel epbx 10,000 units/mL (pf) vial - NEPH 10,000 unit(s) 1 mL, Subcutaneous, Once famotidine 20 mg tablet 20 mg 1 tab(s), Oral, q48h gabapentin 100 mg Capsule 200 mg 2 cap(s), Oral, BID heparin 5,000 units/mL (1 mL) vial 5,000 unit(s) 1 mL, Subcutaneous, q12h hydralazine 50 mg Tablet 50 mg 1 tab(s), Oral, QID insulin lispro 100 units/mL Soln (3 mL) Give 0-5 units/dose, Subcutaneous, TIDAC iron sucrose 300 mg 15 mL, IV Piggyback, qDay levothyroxine 25 mcg tablet 25 mcg 1 tab(s), Oral, Friday through Friday levothyroxine 50 mcg tablet 50 mcg 1 tab(s), Oral, Friday & Friday methylPREDNISolone succ 40mg (40 mg/1mL) after dilution 20 mg 0.5 mL, IV Push, [id number] multivitamin tablet 1 tab(s), Oral, qHS [id number]-[id number] ethyl esters 1000 mg capsule 2,000 mg 2 cap(s), Oral, BID pantoprazole 40 mg EC tablet 40 mg 1 tab(s), Oral, qDayAC piperacillin-tazobactam PMX 3.375 gram(s) 50 mL, IV Piggyback, q12h Continuous: (0) PRN: (3) acetaminophen 325 mg Tablet 650 mg 2 tab(s), Oral, q4h clonidine 0.2 mg Tablet 0.2 mg 1 tab(s), Oral, q6h morphine 4 mg/mL 1mL INJ 3 mg 0.75 mL, IV Push, Once Lab Results 03/17 06:27 WBC: 10.7 Hgb: 7.5 L Hct: 22.6 L Platelet: 171 Neutrophil %: 85.9 H Glucose Level: 204 H Sodium Level: 134 L Potassium Level: 5.0 BUN: 56.0 H Creatinine Lvl (s): 3.68 H Imaging Results and Diagnostics CT Thorax w/o Contrast Result Date: March 16, 2022 Verified By: CAPRICE GAVIRIA, SIVA Altman CLINICAL STATEMENT: IMPRESSION: 1. Trace left pleural effusion.2. Mild left basilar airspace disease may reflect atelectasis or a smallfocus of pneumonia.3. Scattered areas of mild air trapping which can be seen with small airwaysdisease. RECOMMENDATIONS:1.8 cm left thyroid nodule, enlarged from the prior. Nonemergentthyroidultrasound recommended. XR Knee 1 or 2 Views Left Result Date: March 16, 2022 Verified By: SANCHEZ BRYSON DO CLINICAL STATEMENT: IMPRESSION: No acute fracture or dislocation. XR Wrist Minimum 3 Views Right Result Date: March 14, 2022 Verified By: DIANE GAVIRIA, GARO Chawla CLINICAL STATEMENT: IMPRESSION: No acute fracture. I have personally reviewed the images of this examination, and agreewith theresident's findings and interpretation. XR Shoulder Minimum 2 Views Right Result Date: March 14, 2022 Verified By: REGINALDO GREGG MD CLINICAL STATEMENT: IMPRESSION: No fracture or dislocation. Subacromial calcification may be due to degenerative changeor calciumpyrophosphate deposition disease. I have personally reviewed the images of this examination and agree with theresident's findings and interpretation. CT Abdomen/Pelvis w/o Contrast Result Date: March 14, 2022 Verified By: REGINALDO GREGG MD CLINICAL STATEMENT: IMPRESSION: Minimal tree-in-bud nodularities in the left lower lobe, nonspecific althoughcould reflect infection. Correlate clinically and follow-up to resolution. Prominent although nondilated loopsof fluid-filled small bowel in the lefthemiabdomen, nonspecific although could reflect a low-grade enteritis. Chronic findings as above. XR Chest 1 View Result Date: March 14, 2022 Verified By: SANCHEZ ALLEN MD CLINICAL STATEMENT: IMPRESSION: Mild interstitial disease without acute consolidation. 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 Thepatient was noted to have some urethral discomfort a few days ago and was started on amoxicillin. On presentation to the emergency department, the patient was noted to have a low-grade fever tachycardic. CBC revealed leukocytosis at 13,400. Creatinine was elevated at 3.6. The patient was started onIV Zosyn for concern of UTI and pneumonia and ID consultation was placed. Over the past 24 hours, patient has remained afebrile. Dysuria resolved. Patient's white count was elevated at 13,400 which is now resolved. The patient is saturating well on room air. Denies upper respiratory complaints or GI complaints. Currently on Solu-Medrol Dysuria: Patient reports today she had recent dysuria a few days ago and was started on oral amoxicillin. Her last BCG treatment was 3 months ago. States now her urine dysuria has resolved. Urine culture shows no growth to date New onset of left knee pain, history of left knee arthroplasty: We will obtain an x-ray of the leftknee to rule out osseous abnormalities joint effusion Polyarthralgia: Right wrist and right shoulder x-ray with no fracture dislocations. Blood cultures show no growth to date CT scan of the abdomen pelvic area without contrast revealed minimal tree-in-bud nodularities in the left lower lobe. There are also findings that could reflect a low-grade enteritis. Respiratory PCR is negative Clinically the patient has much improved, no active findings to suggest tuberculosis or BCG relatedillness, she is responding well to antimicrobial therapy with improving respiratory status and improving mental status Will continue current treatment, will hold off on QuantiFERON assay unless needed in preparation for biologic medications to be given for rheumatoid arthritis and that could be done as an outpatient If the patient continues to improve in the next 24 to 48 hours then the patient could be dischargedon oral cefdinir 300 mg once a day and minocycline 100 mg twice a day for another week and follow as an outpatient in 2 to 3 weeks for close monitoring and evaluation Will follow as needed Call for questions Orders: Airborne Precautions Transfer/Change in Level of Care Digitally Signed by ZURDO FARRELL BA, MD on 03/17/2022 12:50 PM [id number] Nephrology Progress note Date of Service March 17, 2022 Subjective Feels no better no worse. Appetite is fair at best. No nausea. Bowels are constipated. No diarrhea.No shortness of breath on room air. No cough. Objective Vitals and Measurements T: 36.6 C (Oral) TMIN: 36.5 C (Oral) TMAX: 36.6 C (Oral) HR: 71 RR: 16 BP: 186/65 SpO2: 96% Intake and Output 7AM Yesterday to 7AM Today Intake and Output (Last 24 hours) Intake Oral Intake 300.00 Output Urine Count 4.00 Total Summary Total Intake 300.00 Total Output 0.00 Fluid Balance 300.00 Physical Exam Gen: comfortable, No sign of any acute distress HEENT: No pallor, No icterus, no JVD, no carotid bruit Lungs: Clear to auscultation, good air entry CVS: Regular rate and rhythm, no murmur, no rubs Abd: Soft, nontender, no organomegaly, No flank pain Neuro: Alert, no deficits Ext: No edema Weight Dosing Weight: 59 kg (03/15/22) Dosing Weight: 59 kg (03/14/22) Medications Medications (21) Active Scheduled: (18) amLODIPine 5 mg tablet 5 mg 1 tab(s), Oral, qDay ascorbic acid 500 mg tablet 1,000 mg 2 tab(s), Oral, qDay calcitriol 0.25 mcg Capsule 0.25 mcg 1 cap(s), Oral, qDay carvedilol 12.5 mg tablet 12.5 mg 1 tab(s), Oral, BID doxazosin 2 mg Tablet 2 mg 1 tab(s), Oral, BID famotidine 20 mg tablet 20 mg 1 tab(s), Oral, q48h gabapentin 100 mg Capsule 200 mg 2 cap(s), Oral, BID heparin 5,000 units/mL (1 mL) vial 5,000 unit(s) 1 mL, Subcutaneous, q12h hydralazine 50 mg Tablet 50 mg 1 tab(s), Oral, QID insulin lispro 100 units/mL Soln (3 mL) Give 0-5 units/dose, Subcutaneous, TIDAC iron sucrose 300 mg 15 mL, IV Piggyback, qDay levothyroxine 25 mcg tablet 25 mcg 1 tab(s), Oral, Friday through Friday levothyroxine 50 mcg tablet 50 mcg 1 tab(s), Oral, Friday & Friday methylPREDNISolone succ 40mg (40 mg/1mL) after dilution 20 mg 0.5 mL, IV Push, [id number] multivitamin tablet 1 tab(s), Oral, qHS [id number]-6-[id number] ethyl esters 1000 mg capsule 2,000 mg 2 cap(s), Oral, BID pantoprazole 40 mg EC tablet 40 mg 1 tab(s), Oral, qDayAC piperacillin-tazobactam PMX 3.375 gram(s) 50 mL, IV Piggyback, q12h Continuous: (0) PRN: (3) acetaminophen 325 mg Tablet 650 mg 2 tab(s), Oral, q4h clonidine 0.2 mg Tablet 0.2 mg 1 tab(s), Oral, q6h morphine 4 mg/mL 1mL INJ 3 mg 0.75 mL, IV Push, Once Lab Results 03/17 06:27 WBC: 10.7 Hgb: 7.5 L Hct: 22.6 L Platelet: 171 Neutrophil %: 85.9 H Glucose Level: 204 H Sodium Level: 134 L Potassium Level: 5.0 BUN: 56.0 H Creatinine Lvl (s): 3.68 H EKG EKG - Completed -- 03/16/22 7:30:00 EST Assessment/Plan 1. Stage IV chronic kidney disease: Patient has a solitary kidney. Kidney function relatively unchanged at baseline. She is not uremic. She is nonoliguric. Continue to monitor. 2. Anemia: Multifactorial including chronic kidney disease. She is also iron deficient. She has been started on IV iron. Dose Retacrit. 3. Hypertension: Blood pressure not well controlled. On hydralazine, carvedilol, doxazosin, amlodipine. Change amlodipine to twice daily 5 mg p.o. 4. Pneumonia: Currently being treated with Zosyn and Solu-Medrol. Digitally Signed by FABRICIO MENA MD on 03/17/2022 10:58 AM [id number] Note ORIGINAL EXAMINATION: CT OF THE CHEST WITHOUT CONTRAST 03/16/2022 3:16 pm TECHNIQUE: CT of the chest was performed without the administration of intravenous contrast. Multiplanar reformatted images are provided for review. Automated exposure control, iterative reconstruction, and/or weight based adjustment of the mA/kV was utilized to reduce the radiation dose to as low as reasonably achievable. 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 TREE IN BUD OPACITIES ON CT A/P, PNA, HX OF BCG TREATMENTS FINDINGS: A 1.8 cm left thyroid nodule has enlarged from the prior examination. No axillary adenopathy. No definite mediastinal or hilar adenopathy within the limitations of a noncontrast evaluation which decreases sensitivity. The heart is mildly enlarged. No pericardial effusion. Coronary artery and aortic atherosclerotic disease is noted. Limited images of the upper abdomen are noncontributory. The trachea and mainstem bronchi are patent. There is a trace left effusion. No pneumothorax. The mild airspace disease at the left base. Mild bibasilar atelectasis. Scattered areas of mild air trapping. Degenerative changes are visible in the shoulders and spine. IMPRESSION: 1. Trace left pleural effusion. 2. Mild left basilar airspace disease may reflect atelectasis or a small focus of pneumonia. 3. Scattered areas of mild air trapping which can be seen with small airways disease. RECOMMENDATIONS: 1.8 cm left thyroid nodule, enlarged from the prior. Nonemergent thyroid ultrasound recommended. Interpreted by: Siva Franks MD Preliminary Report By: Siva Franks MD Electronically signed By Siva Franks MD Dictated Date: 03/16/2022 3:45:48 PM Prelim Date: 03/16/2022 3:51:51 PM Sign Date: 03/16/2022 3:51:51 PM Ordering Provider: BANNERGONSALO GRIMM [facility]11-19-2022 Note Date of Service 03/16/2022 Chief Complaint Doing much better right arm pain is subsided CT chest to rule out pneumonia . No chills Subjective Feeling better and steroids helped her relieve the pain on the right wrist and shoulder. Blood sugar is 185 Infectious disease advised to have a CT of the chest to rule out pneumonia Of the right knee is normal . Better ambulating Objective Vitals and Measurements T: 36.6 C (Oral) TMIN: 36.4 C (Oral) TMAX: 36.6 C (Oral) HR: 70(Apical) RR: 18 BP: 135/51 SpO2: 95%HT: 152.4 cm WT: 59 kg BMI: 25.4 Intake and Output 7AM Yesterday to 7AM Today Intake and Output (Last 24 hours) Intake Output Urine Count 1.00 Total Summary Total Intake 0.00 Total Output 0.00 Fluid Balance 0.00 Physical Exam Weight Dosing Weight: 59 kg (03/15/22) Dosing Weight: 59 kg (03/14/22) Medications Medications (21) Active Scheduled: (18) amLODIPine 5 mg tablet 5 mg 1 tab(s), Oral, qDay ascorbic acid 500 mg tablet 1,000 mg 2 tab(s), Oral, qDay calcitriol 0.25 mcg Capsule 0.25 mcg 1 cap(s), Oral, qDay carvedilol 12.5 mg tablet 12.5 mg 1 tab(s), Oral, BID doxazosin 2 mg Tablet 2 mg 1 tab(s), Oral, BID famotidine 20 mg tablet 20 mg 1 tab(s), Oral, q48h gabapentin 100 mg Capsule 200 mg 2 cap(s), Oral, BID heparin 5,000 units/mL (1 mL) vial 5,000 unit(s) 1 mL, Subcutaneous, q12h hydralazine 50 mg Tablet 50 mg 1 tab(s), Oral, QID insulin lispro 100 units/mL Soln (3 mL) Give 0-5 units/dose, Subcutaneous, TIDAC iron sucrose 300 mg 15 mL, IV Piggyback, qDay levothyroxine 25 mcg tablet 25 mcg 1 tab(s), Oral, Friday through Friday levothyroxine 50 mcg tablet 50 mcg 1 tab(s), Oral, Friday & Friday methylPREDNISolone succ 40mg (40 mg/1mL) after dilution 20 mg 0.5 mL, IV Push, [id number] multivitamin tablet 1 tab(s), Oral, qHS jjjyb-9-[id number] ethyl esters 1000 mg capsule 2,000 mg 2 cap(s), Oral, BID pantoprazole 40 mg EC tablet 40 mg 1 tab(s), Oral, qDayAC piperacillin-tazobactam PMX 3.375 gram(s) 50 mL, IV Piggyback, q12h Continuous: (0) PRN: (3) acetaminophen 325 mg Tablet 650 mg 2 tab(s), Oral, q4h clonidine 0.2 mg Tablet 0.2 mg 1 tab(s), Oral, q6h morphine 4 mg/mL 1mL INJ 3 mg 0.75 mL, IV Push, Once Lab Results 03/15 15:36 WBC: 9.6 Hgb: 7.2 L Hct: 22.0 L Platelet: 159 Neutrophil %: 76.6 H Glucose Level: 185 H Sodium Level: 132 L Potassium Level: 4.2 BUN: 45.0 H Creatinine Lvl (s): 3.68 H EKG Electrocardiogram (EKG) - InProcess -- 03/16/22 7:30:00 EST Assessment/Plan Lethargy 1. Rheumatoid arthritis severe Under 2 steroids. Will change to p.o. prednisone tomorrow 2. UTI patient is on Zosyn 3. Patient had CT chest to rule out pneumonia and TB 4. Patient mental status is much better 5 anemia due to dilution because she had IV bolus in the ER. . Started by the nephrology . Currently patient is on Venofer. 6. Diabetes mellitus we will put her on sliding scale insulin 7. Chronic kidney disease. 8. Blood pressure closely clonidine as needed to control blood pressure CHF clinically. Intake and Output (Last 24 hours) Intake Output Urine Count 1.00 Total Summary Total Intake 0.00 Total Output 0.00 Fluid Balance 0.00 Orders: insulin lispro (HumaLOG), Start: 03/16/22 17:00:00 EST, Give 0-5 units/dose, Subcutaneous, TIDAC, 03/16/22 15:31:00 EST piperacillin-tazobactam, Start: 03/16/22 9:00:00 EST, Dose = 3.375 gram(s), = 50 mL, IV Piggyback, q12h, Routine, Rate: 12.5 mL/hr, Infuse over: 4 hour(s), ED, 0, 03/15/22 12:28:00 EST Blood Glucose Monitoring Bedside PRN Blood Glucose Monitoring POC Electrocardiogram ROUTINE EMERGENCY TREATMENT - Full Code Telemetry Monitoring - Continue Digitally Signed by SHIRA ROY MD on 03/16/2022 03:36 PM [id number] Note ORIGINAL EXAMINATION: CT OF THE CHEST WITHOUT CONTRAST 03/16/2022 3:16 pm TECHNIQUE: CT of the chest was performed without the administration of intravenous contrast. Multiplanar reformatted images are provided for review. Automated exposure control, iterative reconstruction, and/or weight based adjustment of the mA/kV was utilized to reduce the radiation dose to as low as reasonably achievable. 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 TREE IN BUD OPACITIES ON CT A/P, PNA, HX OF BCG TREATMENTS FINDINGS: A 1.8 cm left thyroid nodule has enlarged from the prior examination. No axillary adenopathy. No definite mediastinal or hilar adenopathy within the limitations of a noncontrast evaluation which decreases sensitivity. The heart is mildly enlarged. No pericardial effusion. Coronary artery and aortic atherosclerotic disease is noted. Limited images of the upper abdomen are noncontributory. The trachea and mainstem bronchi are patent. There is a trace left effusion. No pneumothorax. The mild airspace disease at the left base. Mild bibasilar atelectasis. Scattered areas of mild air trapping. Degenerative changes are visible in the shoulders and spine. IMPRESSION: 1. Trace left pleural effusion. 2. Mild left basilar airspace disease may reflect atelectasis or a small focus of pneumonia. 3. Scattered areas of mild air trapping which can be seen with small airways disease. RECOMMENDATIONS: 1.8 cm left thyroid nodule, enlarged from the prior. Nonemergent thyroid ultrasound recommended. Interpreted by: Siva Franks MD Preliminary Report By: Siva Franks MD Electronically signed By Siva Franks MD Dictated Date: 03/16/2022 3:45:48 PM Prelim Date: 03/16/2022 3:51:51 PM Sign Date: 03/16/2022 3:51:51 PM [facility]ing Provider[facility]-19-[facility]22 Nephrology Progress note Date of Service March 16, 2022 Patient currently off floor. She is having a CT of her chest. Patient does not have repeat chemistries for today. Will order for tomorrow. Labs were reviewed regarding anemia: She is iron deficient. We will initiate IV iron for the next 3 days. We will check labs in a.m. Currently blood pressure isstable if not generous. Digitally Signed by FABRICIO MENA MD on 03/16/2022 03:10 PM [id number] Note ORIGINAL EXAMINATION: TWO XRAY VIEWS OF THE LEFT KNEE03/16/2022 1:28 pm COMPARISON: None HISTORY: ORDERING SYSTEM PROVIDED HISTORY: Reason for Exam: left knee pain, hx of arthroplasty FINDINGS: Left knee arthroplasty is in near anatomic alignment. No periprosthetic fracture or periprosthetic lucency to suggest loosening. Vascular calcifications are noted. No aggressive osseous lesions. IMPRESSION: No acute fracture or dislocation. Interpreted by: Sanchez Bryson DO Preliminary Report By: Sanchez Bryson DO Electronically signed By Sanchez Bryson DO Dictated Date: 03/16/2022 2:09:08 PM Prelim Date: 03/16/2022 2:09:48 PM Sign Date: 03/16/2022 2:09:48 PM Ordering Provider: [facility]11-19-2022 Note ORIGINAL EXAMINATION: TWO XRAY VIEWS OF THE LEFT KNEE03/16/2022 1:28 pm COMPARISON: None HISTORY: ORDERING SYSTEM PROVIDED HISTORY: Reason for Exam: left knee pain, hx of arthroplasty FINDINGS: Left knee arthroplasty is in near anatomic alignment. No periprosthetic fracture or periprosthetic lucency to suggest loosening. Vascular calcifications are noted. No aggressive osseous lesions. IMPRESSION: No acute fracture or dislocation. Interpreted by: Sanchez Bryson DO Preliminary Report By: Sanchez Bryson DO Electronically signed By Sanchez Bryson DO Dictated Date: 03/16/2022 2:09:08 PM Prelim Date: 03/16/2022 2:09:48 PM Sign Date: 03/16/2022 2:09:48 PM [facility] Provider[facility]22 HCoV 229E RNA ALBIN+non-probe Ql (Nph)Not Detected *NA* (03/16/22 1:02 PM)AH Auto Viro/Sero [id number] Infectious disease Consult note Date of Service 03/16/2022 Reason for Consultation Pneumonia Referring Physician Dr. Roy History of Present Illness This is an 81-year-old female with past medical history diabetes mellitus, hypertension, dyslipidemia, osteoporosis, rheumatoid arthritis history of renal cell carcinoma in which she underwent a right nephrectomy. 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 Thepatient was noted to have some urethral discomfort a few days ago and was started on amoxicillin. On presentation to the emergency department, the patient was noted to have a low-grade fever tachycardic. CBC revealed leukocytosis at 13,400. Creatinine was elevated at 3.6. The patient was started onIV Zosyn for concern of UTI and pneumonia and ID consultation was placed. Review of Systems Occasional fatigue and shortness of breath otherwise 10 point review of systems negative Physical Exam Vitals and Measurements T: 36.5 C (Oral) TMIN: 36.4 C (Oral) TMAX: 36.6 C (Oral) HR: 66(Apical) RR: 18 BP: 158/56 SpO2: 95%HT: 152.4 cm WT: 59 kg BMI: 25.4 Weight Dosing Weight: 59 kg (03/15/22) Dosing Weight: 59 kg (03/14/22) General Appearance: Awake, alert, and oriented HEENT: Normocephaly. Neck: Normal without lymphadenopathy Cardiac: Heart regular rhythm Lungs: Clear Abdomen: Soft, non-tender, non-distended Extremities:Warm without clubbing, cyanosis or edema. Right shoulder with limited range of motion but no acute effusion Neurological: No deficits Skin: Warm, dry, intact. No rashes Psychiatric: No abnormal behaviors Lab Results 03/15 15:36 WBC: 9.6 Hgb: 7.2 L Hct: 22.0 L Platelet: 159 Neutrophil %: 76.6 H Glucose Level: 185 H Sodium Level: 132 L Potassium Level: 4.2 BUN: 45.0 H Creatinine Lvl (s): 3.68 H Imaging Results and Diagnostics XR Wrist Minimum 3 Views Right Result Date: March 14, 2022 Verified By: DIANE GAVIRIA, GARO Chawla CLINICAL STATEMENT: IMPRESSION: No acute fracture. I have personally reviewed the images of this examination, and agreewith theresident's findings and interpretation. XR Shoulder Minimum 2 Views Right Result Date: March 14, 2022 Verified By: REGINALDO GREGG MD CLINICAL STATEMENT: IMPRESSION: No fracture or dislocation. Subacromial calcification may be due to degenerative changeor calciumpyrophosphate deposition disease. I have personally reviewed the images of this examination and agree with theresident's findings and interpretation. CT Abdomen/Pelvis w/o Contrast Result Date: March 14, 2022 Verified By: REGINALDO GREGG MD CLINICAL STATEMENT: IMPRESSION: Minimal tree-in-bud nodularities in the left lower lobe, nonspecific althoughcould reflect infection. Correlate clinically and follow-up to resolution. Prominent although nondilated loopsof fluid-filled small bowel in the lefthemiabdomen, nonspecific although could reflect a low-grade enteritis. Chronic findings as above. XR Chest 1 View Result Date: March 14, 2022 Verified By: SANCHEZ ALLEN MD CLINICAL STATEMENT: IMPRESSION: Mild interstitial disease without acute consolidation. Assessment/Plan Lethargy Pneumonia New onset of left knee pain, history of left knee arthroplasty Dysuria History of rheumatoid arthritis History of renal cell carcinoma and high-grade papillary urothelial carcinoma Polyarthralgia This is an 81-year-old female with past medical history diabetes mellitus, hypertension, dyslipidemia, osteoporosis, rheumatoid arthritis history of renal cell carcinoma in which she underwent a right nephrectomy. 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 Thepatient was noted to have some urethral discomfort a few days ago and was started on amoxicillin. On presentation to the emergency department, the patient was noted to have a low-grade fever tachycardic. CBC revealed leukocytosis at 13,400. Creatinine was elevated at 3.6. The patient was started onIV Zosyn for concern of UTI and pneumonia and ID consultation was placed. Over the past 24 hours, patient has remained afebrile. Dysuria resolved. Patient's white count was elevated at 13,400 which is now resolved. The patient is saturating well on room air. Denies upper respiratory complaints or GI complaints. Currently on Solu-Medrol Dysuria: Patient reports today she had recent dysuria a few days ago and was started on oral amoxicillin. Her last BCG treatment was 3 months ago. States now her urine dysuria has resolved. Urine culture shows no growth to date New onset of left knee pain, history of left knee arthroplasty: We will obtain an x-ray of the leftknee to rule out osseous abnormalities joint effusion Polyarthralgia: Right wrist and right shoulder x-ray with no fracture dislocations. Blood cultures show no growth to date CT scan of the abdomen pelvic area without contrast revealed minimal tree-in-bud nodularities in the left lower lobe. There are also findings that could reflect a low-grade enteritis. Will obtain respiratory PCR with COVID as well as atypical work-up in addition to CT scan of the thorax, will obtain serum QuantiFERON assay, will obtain sputum culture as well, the patient admitted that she has not been on any biologic agents for her rheumatoid arthritis The patient is improving on current antimicrobial therapy, which we will continue Nephrology is following for CKD Thank you for this consultation, will follow I was present for Heather Weaver LPN , and personally directed, all components of the patient's complete evaluation and management documented by the scribe today. I have personally examined the patient and reviewed all diagnostic data. I have reviewed all of this documentation by the scribe. It documents the history obtained, examination performed, diagnostic testing results compiled by him/her,and discharge information. Problem List/Past Medical History Ongoing ARTHRITIS, RHEUMATOID Chronic diastolic congestive heart failure, NYHA class 1 Diabetes mellitus type II Dizziness Dizziness of unknown cause Fever Fever GLAUCOMA HYPERLIPIDEMIA OSTEOPENIA Overweight (BMI 25.0-29.9) Shortness of breath on exertion SPINAL STENOSIS Historical No qualifying data Procedure/Surgical History Laparoscopic total nephrectomy of right kidney Laser Bladder Varicose veins Cataract extraction Total knee replacement Hysterectomy Open reduction Medications Inpatient acetaminophen, 650 mg= 2 tab(s), Oral, q4h, PRN amLODIPine, 5 mg= 1 tab(s), Oral, qDay calcitriol, 0.25 mcg= 1 cap(s), Oral, qDay carvedilol 12.5 mg oral tablet, 12.5 mg= 1 tab(s), Oral, BID cloNIDine, 0.2 mg= 1 tab(s), Oral, q6h, PRN doxazosin 2 mg oral tablet, 2 mg= 1 tab(s), Oral, BID Fish Oil 1000 mg oral capsule, 2000 mg= 2 cap(s), Oral, BID gabapentin, 200 mg= 2 cap(s), Oral, BID heparin 5000 units/mL injection, 5000 unit(s)= 1 mL, Subcutaneous, q12h hydrALAZINE, 50 mg= 1 tab(s), Oral, QID levothyroxine, 50 mcg= 1 tab(s), Oral, Friday & Friday levothyroxine, 25 mcg= 1 tab(s), Oral, Friday through Friday morphine, 3 mg= 0.75 mL, IV Push, Once, PRN Multiple Vitamins oral tablet, 1 tab(s), Oral, qHS pantoprazole, 40 mg= 1 tab(s), Oral, qDayAC Pepcid, 20 mg= 1 tab(s), Oral, q48h SOLU-Medrol 40 mg pf injection, 20 mg= 0.5 mL, IV Push, [id number] Vitamin C, 1000 mg= 2 tab(s), Oral, qDay Zosyn, 3.375 gram(s)= 50 mL, IV Piggyback, q12h Home amLODIPine 5 mg oral tablet, 5 mg= 1 tab(s), Oral, qDay amoxicillin-clavulanate 500 mg-125 mg oral tablet, 1 tab(s), Oral, q12h, Current Antibiotic calcitriol 0.25 mcg oral capsule, 0.25 mcg= 1 cap(s), Oral, qDay carvedilol 12.5 mg oral tablet, 12.5 mg= 1 tab(s), Oral, BID, 3 refills cloNIDine 0.2 mg oral tablet, 0.2 mg= 1 tab(s), Oral, q6h, PRN doxazosin 2 mg oral tablet, 2 mg= 1 tab(s), Oral, BID Fish Oil 1000 mg oral capsule, 2000 mg= 2 cap(s), Oral, BID gabapentin 100 mg oral capsule, 200 mg= 2 cap(s), Oral, BID hydrALAZINE 50 mg oral tablet, 50 mg= 1 tab(s), Oral, QID, 3 refills Lantus Solostar Pen 100 units/mL 3 mL Pen, 9 unit(s), Subcutaneous, qHS levothyroxine 25 mcg (0.025 mg) oral tablet, 25 mcg= 1 tab(s), Oral, Friday through Friday levothyroxine 25 mcg (0.025 mg) oral tablet, 50 mcg= 2 tab(s), Oral, Friday & Friday Lumigan 0.01% ophthalmic solution (NF), 1 drop(s), Eyes, both, qHS Multiple Vitamins oral tablet, 1 tab(s), Oral, qHS pantoprazole 40 mg oral enteric coated tablet, 40 mg= 1 tab(s), Oral, qDayAC Pepcid 40 mg oral tablet, 40 mg= 1 tab(s), Oral, qHS predniSONE 10 mg oral tablet, 10 mg= 1 tab(s), Oral, qDay, PRN Tylenol 325 mg oral tablet, 650 mg= 2 tab(s), Oral, q4h, PRN Vitamin C 1000 mg oral tablet, 1000 mg= 1 tab(s), Oral, qDay Allergies Humira Social History Smoking Status - 12/14/2012 Never smoker Alcohol - Denies Alcohol Use, 04/19/2018 Use: Never., 02/13/2021 Home/Environment Domestic Concerns: None. Living situation: Home/Independent., 01/15/2022 Nutrition/Health Type of diet: Regular. Appetite Fair. Eating Difficulties None. Caffeine intake amount: 1-2 cup/daily., 01/15/2022 Substance Abuse - Denies Substance Abuse, 04/19/2018 Use: Never., 02/13/2021 Tobacco - Denies Tobacco Use, 04/19/2018 Nicotine Use: Never (less than 100 in lifetime)., 02/13/2021 Family History Stroke: Father. Immunizations No qualifying data available. Digitally Signed by Heather Weaver Licensed Scribe on 03/16/2022 12:05 PM Digitally Signed by ZURDO FARRELL BA, MD on 03/16/2022 12:43 PM [id number] Consult note Date of Service 03/15/2022 Reason for Consultation Renal insufficiency as per HPI Referring Physician Dr. Fajardo History of Present Illness Lavinia, 81-year-old [place]ese female. Who has a history of hypertension that is difficult to control, type 2 diabetes, osteoarthritis/rheumatoid arthritis, history of renal cell carcinoma status post right nephrectomy, recent cystoscopy done at [facility] free of cancer. Was treated initially with BCG therapy and completed a course. In addition to this has a history of congestive heart failure last echocardiogram done in February 2021 showing an ejection fraction of 70% diastolic dysfunction and a right systolic Doppler pressure of 32 mmHg. She presents to the hospital because of generalized weakness. What I can gather from the chart is that patient after cystoscopy continue to have some dysuria. I initially saw her in the office on February at which time she complains of some burning during urination. Urine cultures were consistent with a urinary tract infection. She was treated with a course of Augmentin. Outpatient has not felt herself since then. Worsening arthralgias, she has been eating well but her appetite has been somewhat suppressed. She is also has a lot of social issues going on her is currently in a usp. For this reason patient was taken to the urgent care. There she was found to have accelerated hypertension with systolic blood pressure ranging 223 mmHg. She did complain of pain in her right upper and right lower extremities associate this with worsening arthralgias. Now admitted for further care. She has been pancultured. A CT of her abdomen showed minimal tree-in-bud nodularities in the left lower lobe nonspecific in nature.Prominent nondilated loops of fluid-filled small bowel in the left hemiabdomen concern may be of a low-grade enteritis. Nonspecific perinephric fat stranding was noted in the left kidney. A left renal cyst was also noted. There was no evidence of any hydronephrosis or hydroureter. Patient follows with me in the office for chronic kidney disease stage IV. Her baseline creatinine has been anywhere between 3.5 to 4.0 mg/dL. She has been advised about hemodialysis and hemodialysis preparation. Today her creatinine is at 3.5 mg/dL which is actually improved from her last office visit of 3.81 mg/dL. She is also noted to have a history of anemia as a result of her chronic kidney disease and she receives erythropoietin. Urinalysis completed in the emergency room shows her to have 300 mg/dL of protein. Nitrites are negative. Trace bacteria. Her proBNP T is 3500. COVID testing was negative. Otherwise there is been no use of any NSAIDs. She denies any other constitutional symptoms she is chest pain-free no palpitations denies any chills but 100.6 Fahrenheit at home.Previous work-up for hypertension including renin aldosterone were related unremarkable. Plasma metanephrines were normal at 19.Normetanephrine slightly elevated at 324. Renal artery Doppler was negative for any stenosis. Review of Systems As per HPI Physical Exam Vitals and Measurements T: 37.4 C (Oral) HR: 68(Monitored) RR: 21 BP: 153/81 SpO2: 96% WT: 59 kg Weight Dosing Weight: 59 kg (03/14/22) Gen: comfortable, No sign of any acute distress HEENT: No pallor, No icterus, no JVD, no carotid bruit Lungs: Clear to auscultation, good air entry CVS: Regular rate and rhythm, no murmur, no rubs Abd: Soft, nontender, no organomegaly, No flank pain Neuro: Alert, no deficits Ext: No edema Lab Results 03/14 20:13 WBC: 13.4 H Hgb: 9.0 L Hct: 27.5 L Platelet: 163 Neutrophil %: 91.2 H Glucose Level: 145 H Sodium Level: 132 L Potassium Level: 4.2 BUN: 34.0 H Creatinine Lvl (s): 3.49 H Assessment/Plan 1. Chronic kidney disease stage IV 2. Hypertension 3. Recent urinary tract infection 4. Failure to thrive 5. Rheumatoid arthritis 6. Anemia 7. History of diastolic heart failure 8. Metabolic acidosis 9. History of renal cancer status post right nephrectomy From a renal standpoint renal function is relatively stable. Patient has had declining renal function as a result of poorly controlled hypertension and solitary functioning left kidney. At this pointthere is no need for any emergent hemodialysis. She has been advised about needing to prepare for hemodialysis and this can continue outpatient. In regards to her hypertension her blood pressure now is relatively stable. We will continue to adjust her antihypertensive medications as needed during her hospitalization. Meanwhile we will follow her microbiology. Agree with empiric antibiotics. Regards to anemia we will recheck her iron stores resume her erythropoietin during her hospitalization. Meanwhile it is important to maintain renal protective measures: 1. Maintain mean arterial pressure greater than 65 2. Avoid nephrotoxins such as NSAIDs and limit the use of contrast This document was transcribed via voice recognition software and may contain typographical errors. Problem List/Past Medical History Ongoing ARTHRITIS, RHEUMATOID Chronic diastolic congestive heart failure, NYHA class 1 Diabetes mellitus type II Dizziness Dizziness of unknown cause Fever Fever GLAUCOMA HYPERLIPIDEMIA OSTEOPENIA Overweight (BMI 25.0-29.9) Shortness of breath on exertion SPINAL STENOSIS Historical No qualifying data Procedure/Surgical History Laparoscopic total nephrectomy of right kidney Laser Bladder Varicose veins Cataract extraction Total knee replacement Hysterectomy Open reduction Medications Inpatient acetaminophen, 650 mg= 2 tab(s), Oral, q4h, PRN amLODIPine, 5 mg= 1 tab(s), Oral, qDay calcitriol, 0.25 mcg= 1 cap(s), Oral, qDay carvedilol 12.5 mg oral tablet, 12.5 mg= 1 tab(s), Oral, BID cloNIDine, 0.2 mg= 1 tab(s), Oral, q6h, PRN doxazosin 2 mg oral tablet, 2 mg= 1 tab(s), Oral, BID Fish Oil 1000 mg oral capsule, 2000 mg= 2 cap(s), Oral, BID gabapentin, 200 mg= 2 cap(s), Oral, BID heparin 5000 units/mL injection, 5000 unit(s)= 1 mL, Subcutaneous, q12h hydrALAZINE, 50 mg= 1 tab(s), Oral, QID levothyroxine, 50 mcg= 1 tab(s), Oral, Friday & Friday levothyroxine, 25 mcg= 1 tab(s), Oral, Friday through Friday morphine, 3 mg= 0.75 mL, IV Push, Once, PRN Multiple Vitamins oral tablet, 1 tab(s), Oral, qHS pantoprazole, 40 mg= 1 tab(s), Oral, qDayAC Pepcid, 20 mg= 1 tab(s), Oral, q48h Percocet 325-5 mg [PACU], 1 tab(s), Oral, AsDirected, PRN SOLU-Medrol 40 mg pf injection, 20 mg= 0.5 mL, IV Push, [id number] Vitamin C, 1000 mg= 2 tab(s), Oral, qDay Zosyn, 3.375 gram(s)= 50 mL, IV Piggyback, q8hr Home amLODIPine 5 mg oral tablet, 5 mg= 1 tab(s), Oral, qDay amoxicillin-clavulanate 500 mg-125 mg oral tablet, 1 tab(s), Oral, q12h, Current Antibiotic calcitriol 0.25 mcg oral capsule, 0.25 mcg= 1 cap(s), Oral, qDay carvedilol 12.5 mg oral tablet, 12.5 mg= 1 tab(s), Oral, BID, 3 refills cloNIDine 0.2 mg oral tablet, 0.2 mg= 1 tab(s), Oral, q6h, PRN doxazosin 2 mg oral tablet, 2 mg= 1 tab(s), Oral, BID Fish Oil 1000 mg oral capsule, 2000 mg= 2 cap(s), Oral, BID gabapentin 100 mg oral capsule, 200 mg= 2 cap(s), Oral, BID hydrALAZINE 50 mg oral tablet, 50 mg= 1 tab(s), Oral, QID, 3 refills Lantus Solostar Pen 100 units/mL 3 mL Pen, 9 unit(s), Subcutaneous, qHS levothyroxine 25 mcg (0.025 mg) oral tablet, 25 mcg= 1 tab(s), Oral, Friday through Friday levothyroxine 25 mcg (0.025 mg) oral tablet, 50 mcg= 2 tab(s), Oral, Friday & Friday Lumigan 0.01% ophthalmic solution (NF), 1 drop(s), Eyes, both, qHS Multiple Vitamins oral tablet, 1 tab(s), Oral, qHS pantoprazole 40 mg oral enteric coated tablet, 40 mg= 1 tab(s), Oral, qDayAC Pepcid 40 mg oral tablet, 40 mg= 1 tab(s), Oral, qHS predniSONE 10 mg oral tablet, 10 mg= 1 tab(s), Oral, qDay, PRN Tylenol 325 mg oral tablet, 650 mg= 2 tab(s), Oral, q4h, PRN Vitamin C 1000 mg oral tablet, 1000 mg= 1 tab(s), Oral, qDay Allergies Humira Social History Smoking Status - 12/14/2012 Never smoker Alcohol - Denies Alcohol Use, 04/19/2018 Use: Never., 02/13/2021 Home/Environment Domestic Concerns: None. Living situation: Home/Independent., 01/15/2022 Nutrition/Health Type of diet: Regular. Appetite Fair. Eating Difficulties None. Caffeine intake amount: 1-2 cup/daily., 01/15/2022 Substance Abuse - Denies Substance Abuse, 04/19/2018 Use: Never., 02/13/2021 Tobacco - Denies Tobacco Use, 04/19/2018 Nicotine Use: Never (less than 100 in lifetime)., 02/13/2021 Family History Stroke: Father. Immunizations No qualifying data available. Digitally Signed by LORRIE MCKNIGHT MD on 03/15/2022 03:10 PM [id number] History and physical note DATE OF ADMISSION: 03/14/2022 HISTORY OF PRESENT ILLNESS: Ms. Lavinia Durand is an 81-year-old [place]ese female. The patient is known to have diabetes mellitus, hypertension, dyslipidemia, osteoporosis, rheumatoid arthritis for many years, off treatment due to diagnosis of cancer. The patient underwent right nephrectomy forrenal cell carcinoma and she had subsequent evaluation for hematuria. The patient had high-grade papillary urothelial carcinoma, treated with BCG. The patient saw Dr. Mcknight a few days ago as she had some urethral discomfort. Three days ago someone called from Dr. Mcknight's office and started her on amoxicillin. The patient was experiencing quite a lot of pain on the right shoulder, right wrist yesterday. She was not having any fever or chills. She denied any chest pain. The patient was seemingly short of breath. Emergency evaluation showed up some possible right lower lobe infiltrate. She has leukocytosis as well. Empirically started to cover UTI and pneumonia with Zosyn. Requested Dr. Farrell to see her later. Her BNPT is high. Patient denies totally about short of breath. She has chronic kidney disease, stage IV. BUN and creatinine unchanged. Hemoglobin is still low at 9. She has a lot of pain in her right wrist, received some morphine last night as well as 1 dose of prednisone. I ordered Solu-Medrol 20 mg IV now and some morphine for pain. The patient is not in any distress except blood pressure is running high. I restarted all her home meds. The patient is not having any dysuria, diarrhea or vomiting. The patient denies any chest pain. No previous history of NV. Last echo showed severe LVH. The patient stopped diabetic medications as well. PAST MEDICAL HISTORY: Spinal canal stenosis. The patient has chronic rheumatoid arthritis, on treatment, with steroids and SIMPONI, stopped. History of renal cell carcinoma, status post right nephrectomy, dizziness, hyperlipidemia, osteoporosis, glaucoma. Patient is quite active and self caring. Her is in the rehab unit. The patient answered all my questions. No chest pain, no dizziness. Right shoulder and right wrist x-ray seems to be normal. No previous history of gout. PHYSICAL EXAMINATION: NECK: JVD not elevated. EXTREMITIES: No pedal edema. Slight pallor noted. CARDIOVASCULAR: Normal heart sounds. Systolic murmur at precordium. RESPIRATORY: Air entry good anteriorly. Posteriorly, the patient has some crackles on the right base. ABDOMEN: Distended. Bowel sounds normal. CENTRAL NERVOUS SYSTEM: Apart from neuropathy involving both ____ extremities. No other focal deficit. ASSESSMENT: 1. Flare up of rheumatoid arthritis. I tried to reach her [id number] who is a remotely piloted vehicle controller. I just gave her morphine and Solu-Medrol small dose b.i.d. 2. Leukocytosis could be related to her flare-up of rheumatoid arthritis or some sepsis. 3. We requested Dr. Farrell. Empirically, I put her on some Zosyn to cover UTI and I stopped the amoxicillin. 4. 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 I have no recollection of pulmonary nodules in her lungs. 5. 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 No obvious CHF clinically noted. Last echo showed LVH. 6. Chronic anemia due to renal failure. 7. Urinary tract infection. Urine pus cells slightly elevated. Culture pending. 8. The patient at the moment lives on her own. Due to safety issues, we will just admit her and getPT to evaluate her. 9. Uncontrolled hypertension. 10. Deep venous thrombosis prophylaxis ordered. 11. Labs reviewed. 12. Diabetes mellitus, diet controlled. Sugar is 145. Urine showed 3-5 wbc's. Hemoglobin 9, white cell count 13.4 with a left shift, platelets of 163. BNPT is high, 3576. Troponin is normal. EKG showed old anteroseptal infarct. I am not able to compare with the old EKG. Respiratory ID panel showed no evidence of COVID. Urine cultures so far no growth. Once the patient is stabilized, the patient can be moved to step-down. SHIRA ROY MD VR/NTS JOB#: [id number] DICTATION ID#: [id number] Digitally Signed by SHIRA ROY MD on 03/19/2022 12:27 PM [facility] [id number] Note ORIGINAL EXAMINATION: THREE XRAY VIEWS OF THE RIGHT WRIST03/14/2022 11:54 pm COMPARISON: Left wrist x-ray 04/19/2018 HISTORY: ORDERING SYSTEM PROVIDED HISTORY: Reason for Exam: pain No known injury, pain right wrist and right shoulder FINDINGS: No acute fracture or dislocation. No suspicious osseous abnormality. Healed fracture of the distal radius. The carpal arcs appear intact. Diffuse degenerative changes, most prominent within the 1st CMC. Otherwise the visualized joint spaces within the hand are maintained. Calcifications noted within the TFCC likely representing chondrocalcinosis. No significant soft tissue swelling. IMPRESSION: No acute fracture. I have personally reviewed the images of this examination, and agree with the resident's findings and interpretation. Interpreted by: Garo Zarate MD Preliminary Report By: Grazyna Gilman Electronically signed By Garo Zarate MD Dictated Date: 03/14/2022 11:55:51 PM Prelim Date: 03/15/2022 12:00:37 AM Sign Date: 03/15/2022 12:03:24 AM Ordering Provider: [facility]11-18-2022 Note ORIGINAL EXAMINATION: TWO XRAY VIEWS OF THE RIGHT IBBQHAEX80/17/2022 11:53 pm COMPARISON: Shoulder radiograph 06/17/2013 HISTORY: Reason for exam: Pain of right wrist and right shoulder FINDINGS: There is no acute fracture or dislocation. Degenerative changes of the glenohumeral joint. Relatively preserved acromioclavicular joint space. Somewhat globular calcifications project over the rotator cuff. There is no radiopaque foreign body. IMPRESSION: No fracture or dislocation. Subacromial calcification may be due to degenerative change or calcium pyrophosphate deposition disease. I have personally reviewed the images of this examination and agree with the resident's findings and interpretation. Interpreted by: Reginaldo Gregg Preliminary Report By: Ema Canada Electronically signed By Reginaldo Gregg Dictated Date: 03/14/2022 11:55:25 PM Prelim Date: 03/14/2022 11:59:54 PM Sign Date: 03/15/2022 12:01:35 AM Ordering Provider: [facility]11-17-2022 Note ORIGINAL EXAMINATION: THREE XRAY VIEWS OF THE RIGHT WRIST03/14/2022 11:54 pm COMPARISON: Left wrist x-ray 04/19/2018 HISTORY: ORDERING SYSTEM PROVIDED HISTORY: Reason for Exam: pain No known injury, pain right wrist and right shoulder FINDINGS: No acute fracture or dislocation. No suspicious osseous abnormality. Healed fracture of the distal radius. The carpal arcs appear intact. Diffuse degenerative changes, most prominent within the 1st CMC. Otherwise the visualized joint spaces within the hand are maintained. Calcifications noted within the TFCC likely representing chondrocalcinosis. No significant soft tissue swelling. IMPRESSION: No acute fracture. I have personally reviewed the images of this examination, and agree with the resident's findings and interpretation. Interpreted by: Garo Zarate MD Preliminary Report By: Grazyna Gilman Electronically signed By Garo Zarate MD Dictated Date: 03/14/2022 11:55:51 PM Prelim Date: 03/15/2022 12:00:37 AM Sign Date: 03/15/2022 12:03:24 AM Ordering Provider: [facility]11-17-2022 Note ORIGINAL EXAMINATION: TWO XRAY VIEWS OF THE RIGHT EKGYZMOU92/17/2022 11:53 pm COMPARISON: Shoulder radiograph 06/17/2013 HISTORY: Reason for exam: Pain of right wrist and right shoulder FINDINGS: There is no acute fracture or dislocation. Degenerative changes of the glenohumeral joint. Relatively preserved acromioclavicular joint space. Somewhat globular calcifications project over the rotator cuff. There is no radiopaque foreign body. IMPRESSION: No fracture or dislocation. Subacromial calcification may be due to degenerative change or calcium pyrophosphate deposition disease. I have personally reviewed the images of this examination and agree with the resident's findings and interpretation. Interpreted by: Reginaldo Gregg Preliminary Report By: Ema Canada Electronically signed By Reginaldo Gregg Dictated Date: 03/14/2022 11:55:25 PM Prelim Date: 03/14/2022 11:59:54 PM Sign Date: 03/15/2022 12:01:35 AM Ordering Provider: [facility]11-17-2022 Note ORIGINAL EXAMINATION: CT OF THE ABDOMEN AND PELVIS WITHOUT CONTRAST 03/14/2022 8:43 pm TECHNIQUE: CT of the abdomen and pelvis was performed without the administration of intravenous contrast. Multiplanar reformatted images are provided for review. Automated exposure control, iterative reconstruction, and/or weight based adjustment of the mA/kV was utilized to reduce the radiation dose to as low as reasonably achievable. COMPARISON: CT abdomen pelvis October 17, 2020 HISTORY: ORDERING SYSTEM PROVIDED HISTORY: Reason for Exam: LETHARGIC, UTI, PT UNABLE TO RAISE ARMS abdominal pain FINDINGS: Lower Chest: Minimal tree-in-bud nodularities in the left lower lobe. Suboptimal evaluation due to streak artifact from the upper extremities overlying the abdomen. Organs: Calcified granuloma in the left hepatic lobe. Gallstones without evidence of cholecystitis. The spleen and pancreas are unremarkable. Nonspecific mild left adrenal gland thickening. Right kidney is surgically absent. Nonspecific left perinephric fat stranding. Left renal cysts, some of which are too small to characterize. No hydronephrosis or hydroureter GI/Bowel: No bowel obstruction, pneumoperitoneum, or ascites. Noninflamed appendix. A few scattered colonic diverticula without evidence of diverticulitis. Prominent although nondilated loops of fluid-filled small bowel in the left hemiabdomen, nonspecific. Pelvis: Urinary bladder unremarkable. Uterus not visualized. Peritoneum/Retroperitoneum: Nonaneurysmal abdominal aorta with heavy atherosclerotic calcification. No enlarged lymph nodes. Bones/Soft Tissues: Degenerative changes of the spine and hips. IMPRESSION: Minimal tree-in-bud nodularities in the left lower lobe, nonspecific although could reflect infection. Correlate clinically and follow-up to resolution. Prominent although nondilated loops of fluid-filled small bowel in the left hemiabdomen, nonspecific although could reflect a low-grade enteritis. Chronic findings as above. Interpreted by: Reginaldo Gregg Preliminary Report By: Rgeinaldo Gregg Electronically signed By Reginaldo Gregg Dictated Date: 03/14/2022 8:45:06 PM Prelim Date: 03/14/2022 8:51:24 PM Sign Date: 03/14/2022 8:51:24 PM Ordering Provider: [facility]11-17-2022 Note ORIGINAL EXAMINATION: CT OF THE ABDOMEN AND PELVIS WITHOUT CONTRAST 03/14/2022 8:43 pm TECHNIQUE: CT of the abdomen and pelvis was performed without the administration of intravenous contrast. Multiplanar reformatted images are provided for review. Automated exposure control, iterative reconstruction, and/or weight based adjustment of the mA/kV was utilized to reduce the radiation dose to as low as reasonably achievable. COMPARISON: CT abdomen pelvis October 17, 2020 HISTORY: ORDERING SYSTEM PROVIDED HISTORY: Reason for Exam: LETHARGIC, UTI, PT UNABLE TO RAISE ARMS abdominal pain FINDINGS: Lower Chest: Minimal tree-in-bud nodularities in the left lower lobe. Suboptimal evaluation due to streak artifact from the upper extremities overlying the abdomen. Organs: Calcified granuloma in the left hepatic lobe. Gallstones without evidence of cholecystitis. The spleen and pancreas are unremarkable. Nonspecific mild left adrenal gland thickening. Right kidney is surgically absent. Nonspecific left perinephric fat stranding. Left renal cysts, some of which are too small to characterize. No hydronephrosis or hydroureter GI/Bowel: No bowel obstruction, pneumoperitoneum, or ascites. Noninflamed appendix. A few scattered colonic diverticula without evidence of diverticulitis. Prominent although nondilated loops of fluid-filled small bowel in the left hemiabdomen, nonspecific. Pelvis: Urinary bladder unremarkable. Uterus not visualized. Peritoneum/Retroperitoneum: Nonaneurysmal abdominal aorta with heavy atherosclerotic calcification. No enlarged lymph nodes. Bones/Soft Tissues: Degenerative changes of the spine and hips. IMPRESSION: Minimal tree-in-bud nodularities in the left lower lobe, nonspecific although could reflect infection. Correlate clinically and follow-up to resolution. Prominent although nondilated loops of fluid-filled small bowel in the left hemiabdomen, nonspecific although could reflect a low-grade enteritis. Chronic findings as above. Interpreted by: Reginaldo Gregg Preliminary Report By: Reginaldo Gregg Electronically signed By Reginaldo Gregg Dictated Date: 03/14/2022 8:45:06 PM Prelim Date: 03/14/2022 8:51:24 PM Sign Date: 03/14/2022 8:51:24 PM Ordering Provider: [facility]11-17-2022 Note ORIGINAL EXAMINATION: ONE XRAY VIEW OF THE CHEST03/14/2022 6:21 pm CHEST ONE VIEW AP/PA EXAM DESCRIPTION: COMPARISON: Chest, January 15, 2022 HISTORY: ORDERING SYSTEM PROVIDED HISTORY: Reason for Exam: pain/fever; FINDINGS: Single AP radiograph of the chest was obtained. Increased interstitial markings stable from prior. The remaining lungs are clear without evidence of focal consolidation, mass, pleural effusion, or pneumothorax. The cardiomediastinal silhouette is unremarkable. The bones and soft tissues are unremarkable. IMPRESSION: Mild interstitial disease without acute consolidation. Interpreted by: Sanchez Allen MD Preliminary Report By: Sanchez Allen MD Electronically signed By Sanchez Allen MD Dictated Date: 03/14/2022 8:28:17 PM Prelim Date: 03/14/2022 8:29:18 PM Sign Date: 03/14/2022 8:29:18 PM Ordering Provider: [facility]11-17-2022 Note ORIGINAL EXAMINATION: ONE XRAY VIEW OF THE CHEST03/14/2022 6:21 pm CHEST ONE VIEW AP/PA EXAM DESCRIPTION: COMPARISON: Chest, January 15, 2022 HISTORY: ORDERING SYSTEM PROVIDED HISTORY: Reason for Exam: pain/fever; FINDINGS: Single AP radiograph of the chest was obtained. Increased interstitial markings stable from prior. The remaining lungs are clear without evidence of focal consolidation, mass, pleural effusion, or pneumothorax. The cardiomediastinal silhouette is unremarkable. The bones and soft tissues are unremarkable. IMPRESSION: Mild interstitial disease without acute consolidation. Interpreted by: Sanchez Allen MD Preliminary Report By: Sanchez Allen MD Electronically signed By Sanchez Allen MD Dictated Date: 03/14/2022 8:28:17 PM Prelim Date: 03/14/2022 8:29:18 PM Sign Date: 03/14/2022 8:29:18 PM Ordering Provider: [facility]11-17-2022 HCoV 229E RNA ALBIN+non- probe Ql (Nph)Not Detected *NA* (03/14/22 8:13 PM) Auto Viro/Sero [id number] History of Present illness Narrative* Gillian Fulton RN - 03/07/2022 1:51 PM EST UNIVERSAL PROTOCOL / SAFETY CHECKLIST Procedure to be Performed: cystoscopy Sign In: A Moment of CARE was completed. Personnel directly involved with the procedure wore the appropriate PPE (Personal Protective Equipment). Patient/Surrogate Stated/Verified: PATIENT VERIFIED(optional for EMERGENT procedures): Patient name, Date of , Relevant allergies, and The intended procedure Time Out Communication: Intended patient and procedure match the source documents. Consent documented and matches the intended procedure. Sign Out: SIGN OUT (optional for EMERGENT procedures): All specimen containers correctly labeled. Gillian Fulton RN [facility] Note* Gillian Fulton RN - 03/07/2022 1:49 PM EST Actual procedure/procedure scheduled: Yes Performing provider/scheduled provider: Yes Patient was roomed in: Q9- 08 Patient arrived in the room at: 1400 Patient ready for procedure: 1410 The procedure started at ( Time Only): 15:09 The procedure ended at: 15:10 Was the procedure delayed: Yes: Provider late The patient left the procedure room at: 15:20 Gillian Fulton RN PRE PROCEDURE ASSESSMENT- Cysto Procedure Indication: Cystoscopy Latex Allergy: No Allergies reviewed and updated. Yes Heart valve replacement: No Joint replacement: Yes left knee, >2 years ago Back Office UA otained: yes PROCEDURE PREP-Cysto Patient ID with two(2)identifiers verified by: Gillian Fulton RN Pre-Procedure Antibiotics: None taken at home nor prior to procedure Patient Prep: Betadine Scrub to perineum and placement of Sterile Drape. COMPLETED Anesthetic Given:Administered by MD - see Procedure Physician Note. Gillian Fulton RN UNIVERSAL PROTOCOL / SAFETY CHECKLIST Procedure to be performed: Cystoscopy Sign in Communication: Completed Time Out: Team Confirms the Correct Patient, Correct Procedure, Correct Site and Site Marking, Correct Position (if applicable). Sign Out Discussion: Completed Gillian Fulton RN POST PROCEDURE NURSE ASSESSMENT Present along with physician during procedure exam. Gillian Fulton RN Instruction sheet given and reviewed and patient verbalizes understanding: yes Post Procedure Antibiotic: none Current pain intensity is 0 on a 0-10 pain scale. Gillian Fulton RN AMBULATORY PATIENT EDUCATION THE FOLLOWING WAS EVALUATED Motivation To Learn: Interested Family/Significant Other Support: Unable to assess - Family not present Cognitive Ability: Alert/Oriented Method of Instruction: Individual instruction Written instruction - handouts The Following Influencing Factors Were Barriers To This Education Session: None The Following Physical Limitations Were Barriers To This Education Session: None Instruction Provided To: Patient Product Manager Financial Services Present: not applicable Discipline: Nursing Learning Topic: SURVIVAL SKILLS: Symptom Management Patient Evaluation: Verbalizes understanding: Yes Supplemental Material Given: Written Material Instructed By Gillian Fulton RN In Department Urology . [facility] Procedure note* Yovani Peoples MD - 03/07/2022 1:30 PM EST CYSTOSCOPY NOTE [facility] s/p robotic right nephroureterectomy in 10/2020 and [facility] Bladder Recurrence 03/12/2021 s/p induction BCG. [facility] Bladder Recurrence 11/26/2021 MRU 11/01/2021 - bladder lesion only The risks, benefits and alternative of cystoscopy were explained to and understood by the patient who consented to the procedure. The patient understands that there is a risk of bleeding, infection, and damage to the bladder and urethra. The patient's questions were answered and the patient signed informed consent. Patient took antibiotics prior to the start of the procedure. The patient was placed on the procedure table in the supine position and prepped and draped in the usual sterile fashion. 2% Lidocaine Jelly was placed per urethra as an anesthetic in the standard fashion. Once adequate local anesthesia was achieved, the tip of the flexible cystoscope was carefullyplaced into the urethra under direct visual guidance. The bladder was entered and careful taylor endoscopy was carried out. The posterior, superior and lateral ellis and dome of the bladder were all well visualized and the scope was retroflexed upon itself. At the conclusion of the procedure, the flexible cystoscope was removed atraumatically. The patient tolerated the procedure without complications. Findings as below: URETHRA: Meatus [x] Normal [] Abnormal Urethra [x] Normal [] Abnormal Urethra no strictures or tumors BLADDER NECK: [x] Open, Normal [] Contracture [] Other WITHIN THE BLADDER THERE WERE: (check all that apply) [] The patient's bladder was normal and without abnormality [] Tumors [] Bladder stones [] Diverticuli [] Trabeculations [] Inflammation [] Erythema [x] Other Bladder is smooth. No trabeculations. Bladder has no tumors. No clots. No stones. Scar of previous resection noted with no recurrence. Left urethral orifice seen with no tumor. Right urethral orifice surgically absent. Plan: 1 year follow up cystoscopy. Urine cytology sent. [place] Attestation: By signing my name below, Amber Jaime, attest that this documentation has been prepared under the direction and in the presence of Yovani Peoples MD. Electronically Signed:columba Mcnair, March 07, 2022 3:23 PM Provider Attestation: Dr. Yovani Jaime personally performed the services described in this documentation. All medical record entries made by the gabrielibthompson were at my direction and in my presence. I have reviewed the chart and discharge instructions (if applicable) and agree that the record reflects my personal performance and is accurate and complete. Dr. Yovani Peoples MD March 19, 2022, [facility] Summary of episode note LAVINIA DURAND :1940 Visit Date:01/24/2022 Your Visit Summary Tests Performed .Auto Differential .Neutro Absolute CBC Ferritin -- Results Pending -- Iron Studies -- Results Pending -- RFP -- Results Pending -- You will be contacted within 72 hours with your results. Your Care Team Attending Physician - LORRIE MCKNIGHT MD Primary Care Physician - SHIRA ROY MD Vitals Temperature (Oral) 36.7 C Heart Rate 61 Blood Pressure 118/60 What to do next Scheduled Follow-Up Appointments Appointment Type When Where Contact InformationCV OV 02/13/2022 02:30 PM EDT [facility] Medications What How Much When Instructions Unchanged ascorbic acid (Vitamin C 1000 mg oral tablet) 1 tab(s) by mouth Once a day Unchanged bimatoprost ophthalmic (Lumigan 0.01% ophthalmic solution (NF)) 1 Drops Both eyes Once a day (in the evening) Unchanged carvedilol (carvedilol 12.5 mg oral tablet) 1 tab(s) by mouth Two (2) times a day Duration: 90 Days Unchanged doxazosin (Cardura 2 mg oral tablet) 1 tab(s) by mouth Two (2) times a day Unchanged famotidine (Pepcid 40 mg oral tablet) 1 tab(s) by mouth Every day Unchanged folic acid (folic acid 1 mg oral tablet) 1 tab(s) by mouth Once a day (in the evening) Unchanged gabapentin (gabapentin 300 mg oral capsule) 1 cap by mouth Three (3) times a day Unchanged hydrALAZINE (hydrALAZINE 50 mg oral tablet) 1 tab(s) by mouth Four (4) times a day Unchanged insulin glargine (Lantus) 9 unit(s) Subcutaneous Daily at bedtime Unchanged levothyroxine (levothyroxine 25 mcg (0.025 mg) oral tablet) 1 tab(s) by mouth Once a day before a meal Unchanged multivitamin (Multivitamin) 1 tab(s) by mouth Daily at bedtime Unchanged pantoprazole (pantoprazole 40 mg oral enteric coated tablet) 1 tab(s) by mouth Once a day before a meal Test Results .Auto Differential (01/24/2022) Neutrophil % - 69.5 % Lymphocyte % - 17.5 % Monocyte % - 8.2 % Eosinophil % - 4.2 % Basophil % - 0.4 % Lymphocyte, Absolute - 1.3 10^3/mcL Monocyte, Absolute - 0.6 10^3/mcL Eosinophil, Absolute - 0.310^3/mcL Basophil, Absolute - 0.0 10^3/mcL .Neutro Absolute (01/24/2022) Neutrophil, Absolute - 5.2 10^3/mcL CBC (01/24/2022) WBC - 7.5 10^3/mcL RBC - 3.19 10^6/mcL Hgb - 9.3 G/dL Hct - 28.3 % MCV - 88.6 fL MCH - 29.2 pg MCHC- 32.9 G/dL RDW - 15.8 % Platelet - 219 10^3/mcL MPV - 8.3 fL Allergies Humira Additional Information VACCINATE! IT SAVES LIVES! Members of the community who have not yet received the COVID-19 vaccine and would like to receive it can visit one of [facility] vaccine clinics. There are many vaccine clinic locations within the [facility]. For locations and available times, please visit [email or web address]. It is important to note that some COVID mobile vaccine clinics are held outdoors and may be canceled in rainy orstormy conditions. To learn more about pediatric vaccinations (ages 5-11), we invite you to visit the [facility] webpage. https://[email or web address]/pages/[email or web address]-Dwpbpmszhxb-Qgbgsouriq-Uqypi-Fvo stions.htmlTo learn more about the COVID-19 vaccine, we invite you to visit the [facility] website for a list of frequently asked questions. [email or web address]/[email or web address]-[email or web address]/ugjau-Umqojvq-Xmiuzcszbi _Asked-Questions.pdf [place] [facility] Patient Portal Access Instructions: Stay connected with your healthcare team and access your personal medical information anytime with the [facility] Patient Portal.If you would like a full copy of your medical records, please contact the [facility] Medical Records Department, Friday through Friday between 8a.m. and 4:30p.m. Please follow the directions below to access the portal: 1.Access the email account you provided upon registration to the [facility].2.Look for an invitation email from [facility].3.Open the email and access the invitation link: Accept Invitation to [facility]4.Fill in the required diaz to create your account. Sign into [email or web address] with your username and password that you created in the above steps to stay up to date. You can then view a summary of results, a summary of your visits, and the ability to download your summaries to your computer or send the information securely to a physician. Remember that your healthcare information is confidential, so carefully consider who you will allow to register on the [facility] Patient Portal for access to your information. You can also access the [place] [facility] Patient Portal on the [employer]. Simply click on Health Records under VersionEye and then click on the [facility] logo. HOW TO SAFELY DISPOSE OF PRESCRIPTION MEDICATIONS Please use one of the following methods to safely dispose of your unused medications. 1.Use a drug disposal kit: the drug disposal pouch allows you to safely discard your old and unuseddrugs. Ask your nurse to give you one when you are discharged.2.Visit a local take-back location: Many local pharmacies and police departments have programs that collect old and unwanted prescriptiondrugs. Call your local pharmacy or go to http://[employer].Sophia Search/6A2Lz6v to find one close to you.3.Make use of household items: Use cat litter or old coffee grounds to dispose medications if other options arenot available. Mix your drugs with these household products, seal them in an airtight container andthrow it into the garbage. Call [facility]: [phone] to be sure your drugs can be disposed of in this way. Some medicines may require a different approach.4.Never flush your medications down the toilet. IF YOU HAVE BEEN PRESCRIBED AN OPIOID FOR PAIN If you have been prescribed an opioid (such as hydrocodone, oxycodone or morphine), it is critical to understand the possible side effects and risks of opioid pain medications. Even when taken as directed, opioids can have several side effects including: Tolerance, meaning you might need to take more of a medication for the same pain relief. Nausea, vomiting and/or constipation. Sleepiness, dizziness, dry mouth, confusion, depression or itching. Physical dependence, meaning you have withdrawal symptoms when a medication is stopped, can develop within a few days. KNOW YOUR RESPONSIBILITIES It is important to know exactly how much and how often to take the opioid pain medications you are prescribed. Never take opioids in higher amounts or more often than prescribed. Do not combine opioids with alcohol or other drugs that cause drowsiness, such as benzodiazepines, also known as benzos, including diazepam and alprazolam, muscle relaxants or sleep aids. Never sell or share prescription opioids. This is illegal. Store opioids in a secure place and out of reach of others (including children, family, friends and visitors). The last page of this document has been signed and retained as a CHART COPY. Signatures Patient Education Materials Medication Leaflets My discharge plan and instructions have been reviewed and explained to me and I,LAVINIA DURAND understand my current condition and have read and understand these discharge instructions. I have received a written copy of the plan/instructions. If I have questions, I am aware that I should contact my doctor. 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: Date/Time: Relationship to Patient: Witness Name/Signature: Date/Time: [id number] Summary of episode note LAVINIA DURAND :1940 Visit Date:01/10/2022 Your Visit Summary Your Care Team Attending Physician - LORRIE MCKNIGHT MD Primary Care Physician - SHIRA ROY MD Vitals Temperature (Oral) 36.8 C Heart Rate 70 Respiratory Rate 16 Blood Pressure 181/65(Right Arm) What to do next Scheduled Follow-Up Appointments Appointment Type When Where Contact InformationINF Labwork 01/17/2022 02:15 PM EDT Infusion Therapy INF Injection - Procrit 01/17/2022 02:30 PM EDT Infusion Therapy INF Injection - Proc[place] 01/24/2022 02:30 PM EDT Infusion Therapy INF Labwork 01/24/2022 02:30 PM EDT Infusion Therapy CV OV 02/13/2022 02:30 PM EDT [facility] Medications What How Much When Instructions Unchanged amLODIPine (amLODIPine 5 mg oral tablet) 1 tab(s) by mouth Once a day Unchanged ascorbic acid (Vitamin C 1000 mg oral tablet) 1 tab(s) by mouth Once a day Unchanged atorvastatin (atorvastatin 20 mg oral tablet) 1 tab(s) by mouth Once a day Unchanged bimatoprost ophthalmic (Lumigan 0.01% ophthalmic solution (NF)) 1 Drops Both eyes Once a day (in the evening) Unchanged calcium carbonate (calcium carbonate 600 mg oral tablet, chewable) Chewed Once a day Unchanged carvedilol (carvedilol 12.5 mg oral tablet) 1 tab(s) by mouth Two (2) times a day Duration: 90 Days Unchanged cetirizine-pseudoephedrine (ZyrTEC-D 5 mg-120 mg oral tablet, extended release) 1 tab(s) by mouth Every 24 hours as needed for Allergic reaction Unchanged famotidine (Pepcid 40 mg oral tablet) 1 tab(s) by mouth Every day Unchanged folic acid (folic acid 1 mg oral tablet) 1 tab(s) by mouth Once a day Unchanged furosemide (furosemide 20 mg oral tablet) 1 tab(s) by mouth Once a day Unchanged gabapentin (gabapentin 300 mg oral capsule) 1 cap by mouth Three (3) times a day Unchanged hydrALAZINE (hydrALAZINE 25 mg oral tablet) See instructions 25mg QID Unchanged insulin glargine (Lantus) 8 unit(s) Subcutaneous Once a day Unchanged insulin lispro (HumaLOG) (HumaLOG 100 units/ mL injectable solution VIAL) 8 unit(s) Subcutaneous Two (2) times daily before meals Unchanged levothyroxine (levothyroxine 25 mcg (0.025 mg) oral tablet) 1 tab(s) by mouth Once a day before a meal Unchanged multivitamin (Multivitamin) 1 tab(s) by mouth Every day Unchanged pantoprazole (pantoprazole 40 mg oral enteric coated tablet) 1 tab(s) by mouth Once a day before a meal Allergies Humira Additional Information VACCINATE! IT SAVES LIVES! Members of the community who have not yet received the COVID-19 vaccine and would like to receive it can visit one of [facility] vaccine clinics. There are many vaccine clinic locations within the [facility]. For locations and available times, please visit [email or web address]. It is important to note that some COVID mobile vaccine clinics are held outdoors and may be canceled in rainy orstormy conditions. To learn more about pediatric vaccinations (ages 5-11), we invite you to visit the [employer] webpage. https://[email or web address]/pages/[email or web address]-Bdrxi-Prttrhsmccz-Trodxduwxf-Gnkeu-Ltf stions.htmlTo learn more about the COVID-19 vaccine, we invite you to visit the [place] website for a list of frequently asked questions. [email or web address] _Asked-Questions.pdf [place] [facility] Patient Portal Access Instructions: Stay connected with your healthcare team and access your personal medical information anytime with the [facility] Patient Portal.If you would like a full copy of your medical records, please contact the [facility] Medical Records Department, Friday through Friday between 8a.m. and 4:30p.m. Please follow the directions below to access the portal: 1.Access the email account you provided upon registration to the [facility].2.Look for an invitation email from [facility].3.Open the email and access the invitation link: Accept Invitation to [facility]4.Fill in the required diaz to create your account. Sign into [email or web address] with your username and password that you created in the above steps to stay up to date. You can then view a summary of results, a summary of your visits, and the ability to download your summaries to your computer or send the information securely to a physician. Remember that your healthcare information is confidential, so carefully consider who you will allow to register on the [facility] Patient Portal for access to your information. You can also access the [facility] Patient Portal on the [employer]. Simply click on Health Records under VersionEye and then click on the [employer] logo. HOW TO SAFELY DISPOSE OF PRESCRIPTION MEDICATIONS Please use one of the following methods to safely dispose of your unused medications. 1.Use a drug disposal kit: the drug disposal pouch allows you to safely discard your old and unuseddrugs. Ask your nurse to give you one when you are discharged.2.Visit a local take-back location: Many local pharmacies and police departments have programs that collect old and unwanted prescriptiondrugs. Call your local pharmacy or go to http://Gearworks.Sophia Search/7V1Cn2l to find one close to you.3.Make use of household items: Use cat litter or old coffee grounds to dispose medications if other options arenot available. Mix your drugs with these household products, seal them in an airtight container andthrow it into the garbage. Call [facility]: [phone] to be sure your drugs can be disposed of in this way. Some medicines may require a different approach.4.Never flush your medications down the toilet. IF YOU HAVE BEEN PRESCRIBED AN OPIOID FOR PAIN If you have been prescribed an opioid (such as hydrocodone, oxycodone or morphine), it is critical to understand the possible side effects and risks of opioid pain medications. Even when taken as directed, opioids can have several side effects including: Tolerance, meaning you might need to take more of a medication for the same pain relief. Nausea, vomiting and/or constipation. Sleepiness, dizziness, dry mouth, confusion, depression or itching. Physical dependence, meaning you have withdrawal symptoms when a medication is stopped, can develop within a few days. KNOW YOUR RESPONSIBILITIES It is important to know exactly how much and how often to take the opioid pain medications you are prescribed. Never take opioids in higher amounts or more often than prescribed. Do not combine opioids with alcohol or other drugs that cause drowsiness, such as benzodiazepines, also known as benzos, including diazepam and alprazolam, muscle relaxants or sleep aids. Never sell or share prescription opioids. This is illegal. Store opioids in a secure place and out of reach of others (including children, family, friends and visitors). The last page of this document has been signed and retained as a CHART COPY. Signatures Patient Education Materials Medication Leaflets My discharge plan and instructions have been reviewed and explained to me and I,DARILIZA LAVINIA Chawla understand my current condition and have read and understand these discharge instructions. I have received a written copy of the plan/instructions. If I have questions, I am aware that I should contact my doctor. 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: Date/Time: Relationship to Patient: Witness Name/Signature: Date[facility]Time[id number] Summary of episode note LAVINIA DURAND :1940 Visit Date:01/10/2022 Your Visit Summary Your Care Team Attending Physician - LORRIE MCKNIGHT MD Primary Care Physician - SHIRA ROY MD Vitals Temperature (Oral) 36.8 C Heart Rate 70 Respiratory Rate 16 Blood Pressure 181/65(Right Arm) What to do next Scheduled Follow-Up Appointments Appointment Type When Where Contact InformationINF Labwork 01/17/2022 02:15 PM EDT Infusion Therapy INF Injection - Procrit 01/17/2022 02:30 PM EDT Infusion Therapy INF Injection - Procrit 01/24/2022 02:30 PM EDT Infusion Therapy INF Labwork 01/24/2022 02:30 PM EDT Infusion Therapy CV OV 02/13/2022 02:30 PM EDT [facility] Medications What How Much When Instructions Unchanged amLODIPine (amLODIPine 5 mg oral tablet) 1 tab(s) by mouth Once a day Unchanged ascorbic acid (Vitamin C 1000 mg oral tablet) 1 tab(s) by mouth Once a day Unchanged atorvastatin (atorvastatin 20 mg oral tablet) 1 tab(s) by mouth Once a day Unchanged bimatoprost ophthalmic (Lumigan 0.01% ophthalmic solution (NF)) 1 Drops Both eyes Once a day (in the evening) Unchanged calcium carbonate (calcium carbonate 600 mg oral tablet, chewable) Chewed Once a day Unchanged carvedilol (carvedilol 12.5 mg oral tablet) 1 tab(s) by mouth Two (2) times a day Duration: 90 Days Unchanged cetirizine-pseudoephedrine (ZyrTEC-D 5 mg-120 mg oral tablet, extended release) 1 tab(s) by mouth Every 24 hours as needed for Allergic reaction Unchanged famotidine (Pepcid 40 mg oral tablet) 1 tab(s) by mouth Every day Unchanged folic acid (folic acid 1 mg oral tablet) 1 tab(s) by mouth Once a day Unchanged furosemide (furosemide 20 mg oral tablet) 1 tab(s) by mouth Once a day Unchanged gabapentin (gabapentin 300 mg oral capsule) 1 cap by mouth Three (3) times a day Unchanged hydrALAZINE (hydrALAZINE 25 mg oral tablet) See instructions 25mg QID Unchanged insulin glargine (Lantus) 8 unit(s) Subcutaneous Once a day Unchanged insulin lispro (HumaLOG) (HumaLOG 100 units/ mL injectable solution VIAL) 8 unit(s) Subcutaneous Two (2) times daily before meals Unchanged levothyroxine (levothyroxine 25 mcg (0.025 mg) oral tablet) 1 tab(s) by mouth Once a day before a meal Unchanged multivitamin (Multivitamin) 1 tab(s) by mouth Every day Unchanged pantoprazole (pantoprazole 40 mg oral enteric coated tablet) 1 tab(s) by mouth Once a day before a meal Allergies Humira Additional Information VACCINATE! IT SAVES LIVES! Members of the community who have not yet received the COVID-19 vaccine and would like to receive it can visit one of [facility] vaccine clinics. There are many vaccine clinic locations within the [facility]. For locations and available times, please visit [email or web address]. It is important to note that some COVID mobile vaccine clinics are held outdoors and may be canceled in rainy orstormy conditions. To learn more about pediatric vaccinations (ages 5-11), we invite you to visit the [facility] webpage. https://www.[facility].org/pages/3698-Vzwbh-Kinybktplvf-Cqvntwfqzg-Trpzd-Mxg stions.htmlTo learn more about the COVID-19 vaccine, we invite you to visit the [place] website for a list of frequently asked questions. https://[email or web address]/assets/Vlnrsxxm-cug-Ollqnfeg/[email or web address]-Aqdafxbcwa _Asked-Questions.pdf [place] [facility] Patient Portal Access Instructions: Stay connected with your healthcare team and access your personal medical information anytime with the [facility] Patient Portal.If you would like a full copy of your medical records, please contact the [facility] Medical Records Department, Friday through Friday between 8a.m. and 4:30p.m. Please follow the directions below to access the portal: 1.Access the email account you provided upon registration to the [facility].2.Look for an invitation email from [facility].3.Open the email and access the invitation link: Accept Invitation to [facility]4.Fill in the required diaz to create your account. Sign into [email or web address] with your username and password that you created in the above steps to stay up to date. You can then view a summary of results, a summary of your visits, and the ability to download your summaries to your computer or send the information securely to a physician. Remember that your healthcare information is confidential, so carefully consider who you will allow to register on the [facility] Patient Portal for access to your information. You can also access the [facility] Patient Portal on the [employer]. Simply click on Health Records under [employer] and then click on the [employer] logo. HOW TO SAFELY DISPOSE OF PRESCRIPTION MEDICATIONS Please use one of the following methods to safely dispose of your unused medications. 1.Use a drug disposal kit: the drug disposal pouch allows you to safely discard your old and unuseddrugs. Ask your nurse to give you one when you are discharged.2.Visit a local take-back location: Many local pharmacies and police departments have programs that collect old and unwanted prescriptiondrugs. Call your local pharmacy or go to http://G[employer].Sophia Search/2Y2Ph0q to find one close to you.3.Make use of household items: Use cat litter or old coffee grounds to dispose medications if other options arenot available. Mix your drugs with these household products, seal them in an airtight container andthrow it into the garbage. Call [facility]: [phone] to be sure your drugs can be disposed of in this way. Some medicines may require a different approach.4.Never flush your medications down the toilet. IF YOU HAVE BEEN PRESCRIBED AN OPIOID FOR PAIN If you have been prescribed an opioid (such as hydrocodone, oxycodone or morphine), it is critical to understand the possible side effects and risks of opioid pain medications. Even when taken as directed, opioids can have several side effects including: Tolerance, meaning you might need to take more of a medication for the same pain relief. Nausea, vomiting and/or constipation. Sleepiness, dizziness, dry mouth, confusion, depression or itching. Physical dependence, meaning you have withdrawal symptoms when a medication is stopped, can develop within a few days. KNOW YOUR RESPONSIBILITIES It is important to know exactly how much and how often to take the opioid pain medications you are prescribed. Never take opioids in higher amounts or more often than prescribed. Do not combine opioids with alcohol or other drugs that cause drowsiness, such as benzodiazepines, also known as benzos, including diazepam and alprazolam, muscle relaxants or sleep aids. Never sell or share prescription opioids. This is illegal. Store opioids in a secure place and out of reach of others (including children, family, friends and visitors). The last page of this document has been signed and retained as a CHART COPY. Signatures Patient Education Materials Medication Leaflets My discharge plan and instructions have been reviewed and explained to me and ILADARIUS VIJAYA L understand my current condition and have read and understand these discharge instructions. I have received a written copy of the plan/instructions. If I have questions, I am aware that I should contact my doctor. 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: Date/Time: Relationship to Patient: Witness Name/Signature: Date/Time: [id number] Summary of episode note LAVINIA DURAND :1940 Visit Date:01/10/2022 Your Visit Summary Your Care Team Attending Physician - LORRIE MCKNIGHT MD Primary Care Physician - SHIRA ROY MD Vitals Temperature (Oral) 36.8 C Heart Rate 70 Respiratory Rate 16 Blood Pressure 181/65(Right Arm) What to do next Scheduled Follow-Up Appointments Appointment Type When Where Contact InformationINF Labwork 01/17/2022 02:15 PM EDT Infusion Therapy INF Injection - Procrit 01/17/2022 02:30 PM EDT Infusion Therapy INF Injection - Procrit 01/24/2022 02:30 PM EDT Infusion Therapy INF Labwork 01/24/2022 02:30 PM EDT Infusion Therapy CV OV 02/13/2022 02:30 PM EDT [facility] Medications What How Much When Instructions Unchanged amLODIPine (amLODIPine 5 mg oral tablet) 1 tab(s) by mouth Once a day Unchanged ascorbic acid (Vitamin C 1000 mg oral tablet) 1 tab(s) by mouth Once a day Unchanged atorvastatin (atorvastatin 20 mg oral tablet) 1 tab(s) by mouth Once a day Unchanged bimatoprost ophthalmic (Lumigan 0.01% ophthalmic solution (NF)) 1 Drops Both eyes Once a day (in the evening) Unchanged calcium carbonate (calcium carbonate 600 mg oral tablet, chewable) Chewed Once a day Unchanged carvedilol (carvedilol 12.5 mg oral tablet) 1 tab(s) by mouth Two (2) times a day Duration: 90 Days Unchanged cetirizine-pseudoephedrine (ZyrTEC-D 5 mg-120 mg oral tablet, extended release) 1 tab(s) by mouth Every 24 hours as needed for Allergic reaction Unchanged famotidine (Pepcid 40 mg oral tablet) 1 tab(s) by mouth Every day Unchanged folic acid (folic acid 1 mg oral tablet) 1 tab(s) by mouth Once a day Unchanged furosemide (furosemide 20 mg oral tablet) 1 tab(s) by mouth Once a day Unchanged gabapentin (gabapentin 300 mg oral capsule) 1 cap by mouth Three (3) times a day Unchanged hydrALAZINE (hydrALAZINE 25 mg oral tablet) See instructions 25mg QID Unchanged insulin glargine (Lantus) 8 unit(s) Subcutaneous Once a day Unchanged insulin lispro (HumaLOG) (HumaLOG 100 units/ mL injectable solution VIAL) 8 unit(s) Subcutaneous Two (2) times daily before meals Unchanged levothyroxine (levothyroxine 25 mcg (0.025 mg) oral tablet) 1 tab(s) by mouth Once a day before a meal Unchanged multivitamin (Multivitamin) 1 tab(s) by mouth Every day Unchanged pantoprazole (pantoprazole 40 mg oral enteric coated tablet) 1 tab(s) by mouth Once a day before a meal Allergies Humira Additional Information VACCINATE! IT SAVES LIVES! Members of the community who have not yet received the COVID-19 vaccine and would like to receive it can visit one of [facility] vaccine clinics. There are many vaccine clinic locations within the [facility]. For locations and available times, please visit [email or web address]. It is important to note that some COVID mobile vaccine clinics are held outdoors and may be canceled in rainy orstormy conditions. To learn more about pediatric vaccinations (ages 5-11), we invite you to visit the [facility] webpage. https://www.[facility].org/pages/[email or web address]-Amdlwzhgaya-Kqvgotbefc-Ambwz-Dcg stions.htmlTo learn more about the COVID-19 vaccine, we invite you to visit the [place] website for a list of frequently asked questions. [email or web address].[employer]/assets/Shtxlfyu-dzs-Mmoarxpt/cuygj-Pwhpcku-Wllafvllji _Asked-Questions.pdf [place] [facility] Patient Portal Access Instructions: Stay connected with your healthcare team and access your personal medical information anytime with the [place] [facility] Patient Portal.If you would like a full copy of your medical records, please contact the [facility] Medical Records Department, Friday through Friday between 8a.m. and 4:30p.m. Please follow the directions below to access the portal: 1.Access the email account you provided upon registration to the hospital.2.Look for an invitation email from [facility].3.Open the email and access the invitation link: Accept Invitation to [facility]4.Fill in the required diaz to create your account. Sign into [email or web address] with your username and password that you created in the above steps to stay up to date. You can then view a summary of results, a summary of your visits, and the ability to download your summaries to your computer or send the information securely to a physician. Remember that your healthcare information is confidential, so carefully consider who you will allow to register on the [place] [facility] Patient Portal for access to your information. You can also access the [facility] Patient Portal on the [employer]. Simply click on Health Records under VersionEye and then click on the [employer] logo. HOW TO SAFELY DISPOSE OF PRESCRIPTION MEDICATIONS Please use one of the following methods to safely dispose of your unused medications. 1.Use a drug disposal kit: the drug disposal pouch allows you to safely discard your old and unuseddrugs. Ask your nurse to give you one when you are discharged.2.Visit a local take-back location: Many local pharmacies and police departments have programs that collect old and unwanted prescriptiondrugs. Call your local pharmacy or go to http://[employer].Sophia Search/1D9Lo1n to find one close to you.3.Make use of household items: Use cat litter or old coffee grounds to dispose medications if other options arenot available. Mix your drugs with these household products, seal them in an airtight container andthrow it into the garbage. Call [facility]: [phone] to be sure your drugs can be disposed of in this way. Some medicines may require a different approach.4.Never flush your medications down the toilet. IF YOU HAVE BEEN PRESCRIBED AN OPIOID FOR PAIN If you have been prescribed an opioid (such as hydrocodone, oxycodone or morphine), it is critical to understand the possible side effects and risks of opioid pain medications. Even when taken as directed, opioids can have several side effects including: Tolerance, meaning you might need to take more of a medication for the same pain relief. Nausea, vomiting and/or constipation. Sleepiness, dizziness, dry mouth, confusion, depression or itching. Physical dependence, meaning you have withdrawal symptoms when a medication is stopped, can develop within a few days. KNOW YOUR RESPONSIBILITIES It is important to know exactly how much and how often to take the opioid pain medications you are prescribed. Never take opioids in higher amounts or more often than prescribed. Do not combine opioids with alcohol or other drugs that cause drowsiness, such as benzodiazepines, also known as benzos, including diazepam and alprazolam, muscle relaxants or sleep aids. Never sell or share prescription opioids. This is illegal. Store opioids in a secure place and out of reach of others (including children, family, friends and visitors). The last page of this document has been signed and retained as a CHART COPY. Signatures Patient Education Materials Medication Leaflets My discharge plan and instructions have been reviewed and explained to me and I,LAVINIA DURAND understand my current condition and have read and understand these discharge instructions. I have received a written copy of the plan/instructions. If I have questions, I am aware that I should contact my doctor. 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 Scheduled Follow-Up Appointments Appointment Type When Where Contact InformationINF Labwork 01/07/2022 02:15 PM EDT Infusion Therapy CV OV 01/10/2022 02:30 PM EDT [facility] INF Injection - Procrit 01/10/2022 02:30 PM EDT Infusion Therapy INF Labwork 01/17/2022 02:15 PM EDT Infusion Therapy INF Injection - Procrit 01/17/2022 02:30 PM EDT Infusion Therapy INF Injection - Procrit 01/24/2022 02:30 PM EDT Infusion Therapy Medications What How Much When Instructions Unchanged amLODIPine (amLODIPine 5 mg oral tablet) 1 tab(s) by mouth Once a day Unchanged ascorbic acid (Vitamin C 1000 mg oral tablet) 1 tab(s) by mouth Once a day Unchanged atorvastatin (atorvastatin 20 mg oral tablet) 1 tab(s) by mouth Once a day Unchanged bimatoprost ophthalmic (Lumigan 0.01% ophthalmic solution (NF)) 1 Drops Both eyes Once a day (in the evening) Unchanged calcium carbonate (calcium carbonate 600 mg oral tablet, chewable) Chewed Once a day Unchanged carvedilol (carvedilol 12.5 mg oral tablet) 1 tab(s) by mouth Two (2) times a day Duration: 90 Days Unchanged cetirizine-pseudoephedrine (ZyrTEC-D 5 mg-120 mg oral tablet, extended release) 1 tab(s) by mouth Every 24 hours as needed for Allergic reaction Unchanged famotidine (Pepcid 40 mg oral tablet) 1 tab(s) by mouth Every day Unchanged folic acid (folic acid 1 mg oral tablet) 1 tab(s) by mouth Once a day Unchanged furosemide (furosemide 20 mg oral tablet) 1 tab(s) by mouth Once a day Unchanged gabapentin (gabapentin 300 mg oral capsule) 1 cap by mouth Three (3) times a day Unchanged hydrALAZINE (hydrALAZINE 25 mg oral tablet) See instructions 25mg QID Unchanged insulin glargine (Lantus) 8 unit(s) Subcutaneous Once a day Unchanged insulin lispro (HumaLOG) (HumaLOG 100 units/ mL injectable solution VIAL) 8 unit(s) Subcutaneous Two (2) times daily before meals Unchanged levothyroxine (levothyroxine 25 mcg (0.025 mg) oral tablet) 1 tab(s) by mouth Once a day before a meal Unchanged multivitamin (Multivitamin) 1 tab(s) by mouth Every day Unchanged pantoprazole (pantoprazole 40 mg oral enteric coated tablet) 1 tab(s) by mouth Once a day before a meal Allergies Humira Additional Information VACCINATE! IT SAVES LIVES! Members of the community who have not yet received the COVID-19 vaccine and would like to receive it can visit one of [facility] vaccine clinics. There are many vaccine clinic locations within the [facility]. For locations and available times, please visit [email or web address]. It is important to note that some COVID mobile vaccine clinics are held outdoors and may be canceled in rainy orstormy conditions. To learn more about pediatric vaccinations (ages 5-11), we invite you to visit the [facility] webpage. https://www.[employer].org/pages/8116-Jkyie-Itpxngjqqsz-Ueqytomqyw-Pryoo-Vde stions.htmlTo learn more about the COVID-19 vaccine, we invite you to visit the [facility] website for a list of frequently asked questions. https://[email or web address]/[email or web address]/[email or web address]-Xgcaedbszk _Asked-Questions.pdf [place] [facility] Patient Portal Access Instructions: Stay connected with your healthcare team and access your personal medical information anytime with the [facility] Patient Portal.If you would like a full copy of your medical records, please contact the [facility] Medical Records Department, Friday through Friday between 8a.m. and 4:30p.m. Please follow the directions below to access the portal: 1.Access the email account you provided upon registration to the hospital.2.Look for an invitation email from [facility].3.Open the email and access the invitation link: Accept Invitation to [facility]ze4.Fill in the required diaz to create your account. Sign into [email or web address] with your username and password that you created in the above steps to stay up to date. You can then view a summary of results, a summary of your visits, and the ability to download your summaries to your computer or send the information securely to a physician. Remember that your healthcare information is confidential, so carefully consider who you will allow to register on the [facility] Patient Portal for access to your information. You can also access the [facility] Patient Portal on the [employer]. Simply click on Health Records under VersionEye and then click on the [employer] logo. HOW TO SAFELY DISPOSE OF PRESCRIPTION MEDICATIONS Please use one of the following methods to safely dispose of your unused medications. 1.Use a drug disposal kit: the drug disposal pouch allows you to safely discard your old and unuseddrugs. Ask your nurse to give you one when you are discharged.2.Visit a local take-back location: Many local pharmacies and police departments have programs that collect old and unwanted prescriptiondrugs. Call your local pharmacy or go to http://Gearworks.Sophia Search/9K9Hq4b to find one close to you.3.Make use of household items: Use cat litter or old coffee grounds to dispose medications if other options arenot available. Mix your drugs with these household products, seal them in an airtight container andthrow it into the garbage. Call [facility]: [phone] to be sure your drugs can be disposed of in this way. Some medicines may require a different approach.4.Never flush your medications down the toilet. IF YOU HAVE BEEN PRESCRIBED AN OPIOID FOR PAIN If you have been prescribed an opioid (such as hydrocodone, oxycodone or morphine), it is critical to understand the possible side effects and risks of opioid pain medications. Even when taken as directed, opioids can have several side effects including: Tolerance, meaning you might need to take more of a medication for the same pain relief. Nausea, vomiting and/or constipation. Sleepiness, dizziness, dry mouth, confusion, depression or itching. Physical dependence, meaning you have withdrawal symptoms when a medication is stopped, can develop within a few days. KNOW YOUR RESPONSIBILITIES It is important to know exactly how much and how often to take the opioid pain medications you are prescribed. Never take opioids in higher amounts or more often than prescribed. Do not combine opioids with alcohol or other drugs that cause drowsiness, such as benzodiazepines, also known as benzos, including diazepam and alprazolam, muscle relaxants or sleep aids. Never sell or share prescription opioids. This is illegal. Store opioids in a secure place and out of reach of others (including children, family, friends and visitors). The last page of this document has been signed and retained as a CHART COPY. Signatures Patient Education Materials Medication Leaflets My discharge plan and instructions have been reviewed and explained to me and I,LAVINIA DURAND understand my current condition and have read and understand these discharge instructions. I have received a written copy of the plan/instructions. If I have questions, I am aware that I should contact my doctor. 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: Date/Time: Relationship to Patient: Witness Name/Signature: Date[facility]Time[id number] Summary of episode note BRYON DURANDPIETER Chawla :1940 Visit Date:12/27/2021 Your Visit Summary Tests Performed .Auto Differential .Estimated Glomerular Filtration Rate .Neutro Absolute CBC Ferritin Iron Studies RFP Your Care Team Attending Physician - LORRIE MCKNIGHT MD Primary Care Physician - SHIRA ROY MD What to do next Instructions From Your Doctor Retacrit Scheduled Follow-Up Appointments Appointment Type When Where Contact InformationCV OV 01/10/2022 02:30 PM EDT [facility] Medications What How Much When Instructions Unchanged amLODIPine (amLODIPine 5 mg oral tablet) 1 tab(s) by mouth Once a day Unchanged ascorbic acid (Vitamin C 1000 mg oral tablet) 1 tab(s) by mouth Once a day Unchanged atorvastatin (atorvastatin 20 mg oral tablet) 1 tab(s) by mouth Once a day Unchanged bimatoprost ophthalmic (Lumigan 0.01% ophthalmic solution (NF)) 1 Drops Both eyes Once a day (in the evening) Unchanged calcium carbonate (calcium carbonate 600 mg oral tablet, chewable) Chewed Once a day Unchanged carvedilol (carvedilol 12.5 mg oral tablet) 1 tab(s) by mouth Two (2) times a day Duration: 90 Days Unchanged cetirizine-pseudoephedrine (ZyrTEC-D 5 mg-120 mg oral tablet, extended release) 1 tab(s) by mouth Every 24 hours as needed for Allergic reaction Unchanged famotidine (Pepcid 40 mg oral tablet) 1 tab(s) by mouth Every day Unchanged folic acid (folic acid 1 mg oral tablet) 1 tab(s) by mouth Once a day Unchanged furosemide (furosemide 20 mg oral tablet) 1 tab(s) by mouth Once a day Unchanged gabapentin (gabapentin 300 mg oral capsule) 1 cap by mouth Three (3) times a day Unchanged hydrALAZINE (hydrALAZINE 25 mg oral tablet) See instructions 25mg QID Unchanged insulin glargine (Lantus) 8 unit(s) Subcutaneous Once a day Unchanged insulin lispro (HumaLOG) (HumaLOG 100 units/ mL injectable solution VIAL) 8 unit(s) Subcutaneous Two (2) times daily before meals Unchanged levothyroxine (levothyroxine 25 mcg (0.025 mg) oral tablet) 1 tab(s) by mouth Once a day before a meal Unchanged multivitamin (Multivitamin) 1 tab(s) by mouth Every day Unchanged pantoprazole (pantoprazole 40 mg oral enteric coated tablet) 1 tab(s) by mouth Once a day before a meal Test Results .Auto Differential (12/27/2021) Neutrophil % - 70.8 % Lymphocyte % - 17.8 % Monocyte % - 6.7 % Eosinophil % - 4.0 % Basophil % - 0.7 % Lymphocyte, Absolute - 1.4 10^3/mcL Monocyte, Absolute - 0.5 10^3/mcL Eosinophil, Absolute - 0.310^3/mcL Basophil, Absolute - 0.1 10^3/mcL .Estimated Glomerular Filtration Rate (12/27/2021) GFR Non- - 13 ml/min/1.73sqm GFR - 16 ml/min/1.73sqm .Neutro Absolute (12/27/2021) Neutrophil, Absolute - 5.6 10^3/mcL CBC (12/27/2021) WBC - 8.0 10^3/mcL RBC - 2.84 10^6/mcL Hgb - 8.5 G/dL Hct - 25.1 % MCV - 88.2 fL MCH - 29.9 pg MCHC- 33.9 G/dL RDW - 14.2 % Platelet - 233 10^3/mcL MPV - 7.4 fL Ferritin (12/27/2021) Ferritin - 356.1 ng/mL Iron Studies (12/27/2021) Iron - 39 mcg/dL TIBC - 257 mcg/dL Iron Sat - 15 % RFP (12/27/2021) Glucose Level - 127 mg/dL Sodium Level - 136 mEq/L Potassium Level - 4.3 mEq/L Chloride - 103 mEq/LCO2 - 24 mEq/L Electrolyte Balance - 9.0 mEq/L BUN - 41.0 mg/dL Creatinine Lvl (s) - 3.40 mg/dL BUN/Creatinine Ratio - 12.1 ratio Calcium Lvl - 9.4 mg/dL Phosphorus - 5.2 mg/dL Albumin Level - 2.5 G/dL Allergies Humira Additional Information VACCINATE! IT SAVES LIVES! Members of the community who have not yet received the COVID-19 vaccine and would like to receive it can visit one of [facility] vaccine clinics. There are many vaccine clinic locations within the [facility]. For locations and available times, please visit [email or web address]. It is important to note that some COVID mobile vaccine clinics are held outdoors and may be canceled in rainy orstormy conditions. To learn more about pediatric vaccinations (ages 5-11), we invite you to visit the [facility] webpage. [email or web address]/[email or web address]-Iwkvmebrwes-Cczebcfsoh-Dmqoa-Zoi stions.htmlTo learn more about the COVID-19 vaccine, we invite you to visit the [employer] website for a list of frequently asked questions. [email or web address] _Asked-Questions.pdf [facility] Patient Portal Access Instructions: Stay connected with your healthcare team and access your personal medical information anytime with the [facility] Patient Portal.If you would like a full copy of your medical records, please contact the [facility] Medical Records Department, Friday through Friday between 8a.m. and 4:30p.m. Please follow the directions below to access the portal: 1.Access the email account you provided upon registration to the [facility].2.Look for an invitation email from [facility].3.Open the email and access the invitation link: Accept Invitation to [facility]4.Fill in the required diaz to create your account. Sign into [email or web address] with your username and password that you created in the above steps to stay up to date. You can then view a summary of results, a summary of your visits, and the ability to download your summaries to your computer or send the information securely to a physician. Remember that your healthcare information is confidential, so carefully consider who you will allow to register on the [place] [facility] Patient Portal for access to your information. You can also access the [facility] Patient Portal on the [employer] carol ann. Simply click on Health Records under HealthData and then click on the Bharat logo. HOW TO SAFELY DISPOSE OF PRESCRIPTION MEDICATIONS Please use one of the following methods to safely dispose of your unused medications. 1.Use a drug disposal kit: the drug disposal pouch allows you to safely discard your old and unuseddrugs. Ask your nurse to give you one when you are discharged.2.Visit a local take-back location: Many local pharmacies and police departments have programs that collect old and unwanted prescriptiondrugs. Call your local pharmacy or go to http://bit.ly/6U6Kg3i to find one close to you.3.Make use of household items: Use cat litter or old coffee grounds to dispose medications if other options arenot available. Mix your drugs with these household products, seal them in an airtight container andthrow it into the garbage. Call [facility]: [phone] to be sure your drugs can be disposed of in this way. Some medicines may require a different approach.4.Never flush your medications down the toilet. IF YOU HAVE BEEN PRESCRIBED AN OPIOID FOR PAIN If you have been prescribed an opioid (such as hydrocodone, oxycodone or morphine), it is critical to understand the possible side effects and risks of opioid pain medications. Even when taken as directed, opioids can have several side effects including: Tolerance, meaning you might need to take more of a medication for the same pain relief. Nausea, vomiting and/or constipation. Sleepiness, dizziness, dry mouth, confusion, depression or itching. Physical dependence, meaning you have withdrawal symptoms when a medication is stopped, can develop within a few days. KNOW YOUR RESPONSIBILITIES It is important to know exactly how much and how often to take the opioid pain medications you are prescribed. Never take opioids in higher amounts or more often than prescribed. Do not combine opioids with alcohol or other drugs that cause drowsiness, such as benzodiazepines, also known as benzos, including diazepam and alprazolam, muscle relaxants or sleep aids. Never sell or share prescription opioids. This is illegal. Store opioids in a secure place and out of reach of others (including children, family, friends and visitors). The last page of this document has been signed and retained as a CHART COPY. Signatures Patient Education Materials Medication Leaflets My discharge plan and instructions have been reviewed and explained to me and I,LAVINIA DURAND understand my current condition and have read and understand these discharge instructions. I have received a written copy of the plan/instructions. If I have questions, I am aware that I should contact my doctor. 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 Your Care Team Attending Physician - LORRIE MCKNIGHT MD Primary Care Physician - SHIRA ROY MD Vitals Temperature (Oral) 36.7 C Heart Rate 64 Respiratory Rate 18 Blood Pressure 162/54 What to do next Scheduled Follow-Up Appointments Appointment Type When Where Contact InformationCV OV 01/10/2022 02:30 PM EDT [facility] Medications What How Much When Instructions Unchanged amLODIPine (amLODIPine 5 mg oral tablet) 1 tab(s) by mouth Once a day Unchanged ascorbic acid (Vitamin C 1000 mg oral tablet) 1 tab(s) by mouth Once a day Unchanged atorvastatin (atorvastatin 20 mg oral tablet) 1 tab(s) by mouth Once a day Unchanged bimatoprost ophthalmic (Lumigan 0.01% ophthalmic solution (NF)) 1 Drops Both eyes Once a day (in the evening) Unchanged calcium carbonate (calcium carbonate 600 mg oral tablet, chewable) Chewed Once a day Unchanged carvedilol (carvedilol 12.5 mg oral tablet) 1 tab(s) by mouth Two (2) times a day Duration: 90 Days Unchanged cetirizine-pseudoephedrine (ZyrTEC-D 5 mg-120 mg oral tablet, extended release) 1 tab(s) by mouth Every 24 hours as needed for Allergic reaction Unchanged famotidine (Pepcid 40 mg oral tablet) 1 tab(s) by mouth Every day Unchanged folic acid (folic acid 1 mg oral tablet) 1 tab(s) by mouth Once a day Unchanged furosemide (furosemide 20 mg oral tablet) 1 tab(s) by mouth Once a day Unchanged gabapentin (gabapentin 300 mg oral capsule) 1 cap by mouth Three (3) times a day Unchanged hydrALAZINE (hydrALAZINE 25 mg oral tablet) See instructions 25mg QID Unchanged insulin glargine (Lantus) 8 unit(s) Subcutaneous Once a day Unchanged insulin lispro (HumaLOG) (HumaLOG 100 units/ mL injectable solution VIAL) 8 unit(s) Subcutaneous Two (2) times daily before meals Unchanged levothyroxine (levothyroxine 25 mcg (0.025 mg) oral tablet) 1 tab(s) by mouth Once a day before a meal Unchanged multivitamin (Multivitamin) 1 tab(s) by mouth Every day Unchanged pantoprazole (pantoprazole 40 mg oral enteric coated tablet) 1 tab(s) by mouth Once a day before a meal Test Results .Auto Differential (11/30/2021) Neutrophil % - 67.6 % Lymphocyte % - 21.0 % Monocyte % - 6.5 % Eosinophil % - 3.8 % Basophil % - 1.1 % Lymphocyte, Absolute - 1.7 10^3/mcL Monocyte, Absolute - 0.5 10^3/mcL Eosinophil, Absolute - 0.310^3/mcL Basophil, Absolute - 0.1 10^3/mcL .Newberry Distribution Width (11/30/2021) Monocyte Distribution Width - Not Performed .Neutro Absolute (11/30/2021) Neutrophil, Absolute - 5.4 10^3/mcL CBC (11/30/2021) WBC - 7.9 10^3/mcL RBC - 3.11 10^6/mcL Hgb - 9.5 G/dL Hct - 28.1 % MCV - 90.5 fL MCH - 30.6 pg MCHC- 33.9 G/dL RDW - 14.9 % Platelet - 257 10^3/mcL MPV - 7.5 fL Allergies Humira Additional Information VACCINATE! IT SAVES LIVES! Members of the community who have not yet received the COVID-19 vaccine and would like to receive it can visit one of [facility] vaccine clinics. There are many vaccine clinic locations within the [facility]. For locations and available times, please visit [email or web address]. It is important to note that some COVID mobile vaccine clinics are held outdoors and may be canceled in rainy orstormy conditions. To learn more about pediatric vaccinations (ages 5-11), we invite you to visit the [facility] webpage. [email or web address]/[email or web address]-[email or web address] stions.htmlTo learn more about the COVID-19 vaccine, we invite you to visit the [employer] website for a list of frequently asked questions. [email or web address]/[email or web address]/[email or web address]-[email or web address]-[email or web address] _Asked-Questions.pdf [place] [facility] Patient Portal Access Instructions: Stay connected with your healthcare team and access your personal medical information anytime with the [facility] Patient Portal.If you would like a full copy of your medical records, please contact the [facility] Medical Records Department, Friday through Friday between 8a.m. and 4:30p.m. Please follow the directions below to access the portal: 1.Access the email account you provided upon registration to the [facility].2.Look for an invitation email from [facility].3.Open the email and access the invitation link: Accept Invitation to [place] [facility]4.Fill in the required diaz to create your account. Sign into [email or web address] with your username and password that you created in the above steps to stay up to date. You can then view a summary of results, a summary of your visits, and the ability to download your summaries to your computer or send the information securely to a physician. Remember that your healthcare information is confidential, so carefully consider who you will allow to register on the [facility] Patient Portal for access to your information. You can also access the [facility] Patient Portal on the [employer]. Simply click on Health Records under VersionEye and then click on the [employer] logo. HOW TO SAFELY DISPOSE OF PRESCRIPTION MEDICATIONS Please use one of the following methods to safely dispose of your unused medications. 1.Use a drug disposal kit: the drug disposal pouch allows you to safely discard your old and unuseddrugs. Ask your nurse to give you one when you are discharged.2.Visit a local take-back location: Many local pharmacies and police departments have programs that collect old and unwanted prescriptiondrugs. Call your local pharmacy or go to http://Gearworks.Sophia Search/7N0Lb3k to find one close to you.3.Make use of household items: Use cat litter or old coffee grounds to dispose medications if other options arenot available. Mix your drugs with these household products, seal them in an airtight container andthrow it into the garbage. Call [facility]: [phone] to be sure your drugs can be disposed of in this way. Some medicines may require a different approach.4.Never flush your medications down the toilet. IF YOU HAVE BEEN PRESCRIBED AN OPIOID FOR PAIN If you have been prescribed an opioid (such as hydrocodone, oxycodone or morphine), it is critical to understand the possible side effects and risks of opioid pain medications. Even when taken as directed, opioids can have several side effects including: Tolerance, meaning you might need to take more of a medication for the same pain relief. Nausea, vomiting and/or constipation. Sleepiness, dizziness, dry mouth, confusion, depression or itching. Physical dependence, meaning you have withdrawal symptoms when a medication is stopped, can develop within a few days. KNOW YOUR RESPONSIBILITIES It is important to know exactly how much and how often to take the opioid pain medications you are prescribed. Never take opioids in higher amounts or more often than prescribed. Do not combine opioids with alcohol or other drugs that cause drowsiness, such as benzodiazepines, also known as benzos, including diazepam and alprazolam, muscle relaxants or sleep aids. Never sell or share prescription opioids. This is illegal. Store opioids in a secure place and out of reach of others (including children, family, friends and visitors). The last page of this document has been signed and retained as a CHART COPY. Signatures Patient Education Materials Medication Leaflets My discharge plan and instructions have been reviewed and explained to me and I,LAVINIA DURAND understand my current condition and have read and understand these discharge instructions. I have received a written copy of the plan/instructions. If I have questions, I am aware that I should contact my doctor. 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 Will send Xeneta message. Obi Mcdonnell MD Department of Urology [employer] and Laparoscopy Fellow [facility] Miscellaneous Notes* Telephone Encounter - Matt Hope APRN.CNP - 11/23/2021 6:59 PM EDT Hi, Please review labs below. scheduled for RESECTION BLADDERTUMOR TRANSURETHRAL on 11/26/2021. Also please note that the patient states she has been on procrit injections and has 2 more doses left. Results for LAVINIA DURAND ( ) as of 11/23/2021 18:58 Ref. Range 11/23/2021 13:55 Hematocrit Latest Ref Range: 36.0 - 46.0 % 30.2 (L) WBC Latest Ref Range: 3.70 - 11.00 k/uL 8.51 RBC Latest Ref Range: 3.90 - 5.20 m/uL 3.24 (L) Hemoglobin Latest Ref Range: 11.5 - 15.5 g/dL 9.9 (L) documented in [facility]Det[facility]29-2022 History and physical note * Matt Hope APRN.VIVEK - 11/23/2021 2:40 PM EDT Images from the original note were not included. HISTORY AND PHYSICAL EXAMINATION SERVICE DATE: 11/22/2021 SERVICE TIME: 2:28 PM PRIMARY CARE PHYSICIAN: Shira Roy MD REASON FOR VISIT: Lavinia Durand is a 80 year old female who is scheduled for RESECTION BLADDER TUMOR TRANSURETHRAL at the request of Dr. Yovani Peoples for consultation. My final recommendation will be communicated back to the requesting physician by way of shared medical record or letter. 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 She presents to [facility] today for preop exam. She denies any symptoms. Denies gross hematuria fevers, chills, nausea,vomiting, abdominal/flank pain, chest pain, and SOB. Patient is scheduled for the above procedure on 11/26/2021. 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 Taking Yes furosemide (LASIX) 20 mg tablet Take 20 mg by mouth every other day. Taking Yes carvedilol (COREG) 12.5 mg tablet Take 1 tablet by mouth twice daily with meals. Taking Yes hydrALAZINE (APRESOLINE) 25 mg tablet Take 25 mg by mouth three times daily. Taking Yes amLODIPine (NORVASC) 10 mg tablet Take 10 mg by mouth once daily. Taking Yes pantoprazole DR (PROTONIX) 40 mg tablet Take 40 mg by mouth once daily. Taking Yes famotidine (PEPCID) 40 mg tablet Take 40 mg by mouth once daily. Taking Yes insulin glargine (LANTUS SOLOSTAR U-100 INSULIN) 100 unit/mL (3 mL) Inject 8 Units subcutaneously daily at bedtime. Taking Yes levothyroxine (SYNTHROID) 25 mcg tablet Take 25 mcg by mouth daily before breakfast. Taking Yes gabapentin (NEURONTIN) 300 mg capsule Take 1 capsule by mouth three times daily. / Actual start date 02/12/15 Patient taking differently: Take 300 mg by mouth twice daily. Taking Yes bimatoprost (LUMIGAN) 0.01 % drop ophthalmic drops Use 1 Drop in both eyes daily at bedtime. TakingYes cephALEXin (KEFLEX) 500 mg capsule Take 1 capsule by mouth twice daily. Take around the time of catheter removal -- start taking on , 03/22/21 and continue taking until gone. Patient not taking: Reported on 07/12/2021 Not Taking atorvastatin (LIPITOR) 20 mg tablet Take 1 tablet by mouth once daily. Patient not taking: Reported on 11/23/2021 Not Taking indapamide (LOZOL) 1.25 mg tablet Take 1 tablet by mouth once daily. Patient not taking: Reported on 02/15/2021 Not Taking acetaminophen (TYLENOL) 500 mg tablet Take 500 mg by mouth every 6 hours as needed for pain. bisacodyl (DULCOLAX) 10 mg supp 1 Suppository by RECTAL route once daily as needed for constipation. Patient not taking: Reported on 07/12/2021 Not Taking benazepril (LOTENSIN) 20 mg tablet Take 20 mg by mouth twice daily. Patient not taking: Reported on 07/12/2021 Not Taking insulin lispro (HUMALOG KWIKPEN INSULIN SUBCUTANEOUS) Inject 8 Units subcutaneously twice daily before meals. Patient not taking: Reported on 11/23/2021 Not Taking CETIRIZINE HCL (ZYRTEC ORAL) Take 5 mg by mouth at bedtime as needed (itching). fenofibrate nanocrystallized (TRICOR) 145 mg tablet Take 145 mg by mouth once daily. Patient not taking: Reported on 07/12/2021 Not Taking cholecalciferol, Vitamin D3, 50,000 unit cap capsule Take 50,000 Units by mouth every 2 weeks. Patient not taking: Reported on 11/23/2021 Not Taking No medication comments found. ALLERGIES Allergen Reactions Atorvastatin Intolerance Severe fatigue Humira [Adalimumab] Rash COVID VACCINATION STATUS: Fully vaccinated REVIEW OF SYSTEMS: PAIN ASSESSMENT: 0/10 General: No weight loss, malaise or fevers. Neuro: No history of TIA's, stroke, DRAPERY SUPERVISOR tumor, impaired sensorium, hemiplegia, paraplegia or quadraplegia. No neurological symptoms or problems. Respiratory: Negative for Asthma, Bronchitis, COPD, Current cough, Daily bronchodilator use for previous 3 months, Dyspnea, Home O2, Orthopnea none, Pneumonia within 6 weeks (date), Recent hospitalizations for none, Tobacco Use, URI < 2 weeks, Wheezing +SOB Walking greater 15 minutes. 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 Cardiovascular: Negative for Recent NV, Angina, Arrhythmia, CAD, Chest Pain, CHF, PVD, Valvular Heart Disease, DVT/PE + Hypertension on rx + Hypercholesterolemia no rx +Acute on chronic CHF on rx Lasix GI: No history of GI symptoms or problems. No history of esophageal varices, recent ascites, or ETOH greater than 2 drinks per day. : See HPI + Stage IIIb chronic kidney disease + History of renal cancer status post right nephrectomy 10/2020. Patient follows Dr. Lopez her local urologist. ENDOSCOPY TECHNICAN: Negative for abnormal vaginal bleeding, abnormal vaginal discharge. : No LMP recorded. Patient has had a hysterectomy. Endocrine: Diabetes Mellitus on insulin, Hypothyroidism Hematology: Iron deficiency anemia + Anemia procrit injection weekly. 2 more injections left. Oncology: See HPI Psych: No history of psychiatric symptoms or problems. Musculoskeletal: Back pain history of arthritis Skin: Negative for lesions, rash and itching. Objective PHYSICAL EXAM: VITALS: BP 161/60 Pulse 65 Temp (Src) 98.1 (Temporal) Ht 5' 0 (1.52m) Wt 131 lb (59.4kg) SpO2 100% BMI 25.58 kg/(m^2). General: Alert and oriented Skin: Normal color, no rash, no lesions. HEENT: EOM, pupils equal, round and reactive. Cardiovascular: Normal S1 & S2, no rubs, murmurs or gallops. No JVD. Pulse regular. Lungs: Normal breath sounds, no wheezes or crackles. Abdomen: Soft, non-tender, no rigidity., Positive bowel sounds Extremities: No deformity, no edema or tenderness, no joint swelling or clubbing. Neurological: Normal cognition and motor skills. Pulses: Radial pulses; left 2+ / right 2+. Diagnostic tests reviewed for today's visit: Lab Value Units Date High Low HB 9.9 g/dL 11/23/2021 15.5 11.5 HCT 30.2 % 11/23/2021 46.0 36.0 WBC 8.51 k/uL 11/23/2021 11.00 3.70 PLT 282 k/uL 11/23/2021 400 150 NA No results within date range. K No results within date range. GLUC No results within date range. BUN No results within date range. CREAT No results within date range. PTSEC 11.1 sec 11/23/2021 13.0 9.7 INR 1.1 no uni* 11/23/2021 1.3 0.9 APTT 25.3 sec 11/23/2021 32.4 23.0 ALT No results within date range. AST No results within date range. TBILI No results within date range. TSH No results within date range. Lab Value Units Date High Low HCGQT No results within date range. UHCG No results within date range. HCG, BODY* No results within date range. Lab Value Units Date High Low ABORHD No results within date range. ABSCREEN No results within date range. Hemoglobin A1C (%) Date Value 10/25/2020 6.2 Most recent EKG: Most recent Echo Most recent MRI ABDOMEN URO WO/W IVCON IMPRESSION: 0.6 cm enhancing bladder lesion adjacent to the left vesicoureteral junction, suspicious for urothelial neoplasm. Status post right nephroureterectomy without recurrent/metastatic disease. No left upper tract urothelial disease Few subcentimeter pancreatic cystic lesions, likely side branch IPMNs. Dictated by : MELANI ABEL MD This examination was interpreted and the report reviewed and electronically signed by: SAMMI SIMMONS MD on Nov 01 2021 3:04PM EST Assessment/Plan Hypertension - Blood pressure today 161/60. -Patient is on amlodipine, carvedilol, Lasix and hydralazine. GERD (gastroesophageal reflux disease) -Symptoms controlled with Protonix. Stage 3b chronic kidney disease (HCC) -Stage IIIb chronic disease, stable Neoplasm of bladder -scheduled for RESECTION BLADDER TUMOR TRANSURETHRAL with Dr. Yovani Peoples on 11/26/2021. Diabetes (HCC) -Managed with insulin Lantus. Acute on chronic diastolic congestive heart failure (HCC) -On Lasix -appears Euvolemic Anemia -Per patient, she has been on procrit injections with 2 doses left. -CBC ordered by surgical team. METS: Walk indoors, such as around the house (1.75 METs) Do light work around the house, such as dusting or washing dishes (2.70 METs) Take care of self; that is eating, dressing, bathing, using the toilet (2.75 METs) Walk a block or two on level ground (2.75 METs) Patient denies any chest pain or undue shortness of breath with the above physical activity. ASA Class: 3 ANESTHESIA FINDINGS: Intubation History: No history of difficult intubation Significant Anesthesia Considerations: None Airway Exam: General: Normal appearance Mallampati Score is CLASS II ULBT: Class II - Lower incisors can bite the upper lip below the david line Neck: Normal appearance and function, Distance from hyoid to mentum during neck extension is at least 3 finger breaths Mouth: Normal tongue size and Mouth opening greater than 2 finger breaths Dentition: Intact and bonded tooth left lower Airway History: No history of difficult intubation Sleep Apnea Probability Snores loudly: Yes Tired, fatigued or sleepy in daytime: Yes Stops breathing or choking/gasping during sleep: No High blood pressure: No Sleep Apnea Probability Score 11/21/2021 Sleep Apnea Screen V2 45 (Sleep study not recommended) PLAN Patient is optimally prepared for surgery pending day of surgery review of LABS. CONSULTS: Patient does not require consults for optimization at this time. The Following Tests/Procedures Have Been Initiated: Confirm blood type, type and screen, prothrombin time, activated PTT, CMP, CBC, and EKG ordered by surgical team. Planned Anesthetic: Per anesthesia choice Instructions Given to Patient: Instructions located in the after visit summary. Patient given verbal and written preop instructions and voices comprehension and compliance. This document has been created with use of voice recognition technology. It may contain inaccuracies, misspellings, inaccurate syntax or word sense that escaped review. SIGNATURE: Matt Hope APRN.CNP PATIENT NAME: Lavinia Durand DATE: November 23, 2021 TIME: 2:28 PM [facility] Instructions* Patient Instructions* Matt Hope APRN.CNP - 11/23/2021 2:28 PM EDT PATIENT PREOPERATIVE INSTRUCTIONS Yovani Peoples MD has scheduled you for your procedure at this surgery center: [facility] Scheduling Office: [phone] --[address] [place] [address]. Please read below carefully for your personalized instructions. Dietary Restrictions: - No solid food after midnight. - You may have 12 ounces of clear liquids (water, clear juices such as apple juice or gatorade, carbonated beverages, clear tea, black coffee, jello) until 2 hours before scheduled arrival at facility. Medications: Unless instructed differently below, stay on all of your medications until your surgery. Approved medications to take the morning of surgery with a sip of water: TYLENOL, AMLODIPINE, LASIX, CARVEDILOL, SYNTHROID and PROTONIX - No diabetic medication the morning of surgery. - Accucheck day of surgery. - Take full dose of insulin the day before surgery. - Take half dose of long acting insulin (Lantus, NPH) the day of surgery. If you start any new medications after today's visit, please contact the surgeon's office. Blood Thinning Medications: - Stop NSAIDS (Ibuprofen, Advil, Aleve, Motrin, Celebrex, Mobic, etc.) 7 days before surgery, as directed by your surgeon. - Stop Vitamin E, ALL multi-vitamins, herbals and dietary supplements 7 days before surgery. - You may take Tylenol (Acetaminophen) or any of your pain medications that do not contain aspirin or NSAIDS as needed. Important Reminders: - Candy, mints, and tobacco products are NOT permitted the morning of surgery. - Hearing aids, dentures and glasses may be worn the morning of surgery. - NO jewelry, body piercings, makeup, hairpins or contacts are to be worn the day of surgery. If you develop symptoms such as a fever, cold, or flu, or have other changes to your health within TWO DAYS of scheduled surgery or the morning of surgery, please contact the surgery center above. Personal Belongings: -Please have photo ID and insurance cards. -If you do not have a copy of advance directives on file with us, please bring a copy with you on the day of surgery. - Leave ALL valuables and money at home or with family members. For Outpatient Procedures: - YOU MUST HAVE A RESPONSIBLE HAND STONE POLISHER TAKE YOU HOME. A FORM STRIPPER OR PLANNING AIDE CANNOT BE MADE A RESPONSIBLE HAND STONE POLISHER. - We recommend that a responsible person stays with you overnight to take care of you. - You cannot stay in a hotel alone after outpatient surgery. You will not be permitted to have yoursurgery, if you do not have someone to take care of you. Arrival Time for Surgery: - To obtain your arrival time for surgery, call your physician's office the day before your surgery. - If your surgery is scheduled for Friday, call the Friday before. Your surgeon s validation architect will tell you what time to call the office. - If you have not reached the departmental validation architect by 5 P.M., call [phone] after 5 P.M. the day before your surgery. Please be aware that emergency situations arise, which may delay or change your surgical time. If this happens, we will notify you as soon as possible and regret any inconvenience. If you already have an Advance Directive, please fax a copy to [phone] or email to for it to be added to your chart. If you do not have an Advance Directive, you can find the appropriate form and more information at [email or web address]. We recommend that youcomplete the Advance Directive form found on the website and bring it with you the day of your surgery. It can be witnessed and scanned into your chart that day. Matt Hope APRN.CNP documented [facility] Summary of episode note Discharge Instructions Thank you for allowing [facility] to assist you with your healthcare needs. The following is importantdischarge information regarding your hospital visit. Your Care Team SHIRA ROY MD What to do next Scheduled Follow-Up Appointments Appointment Type When Where Contact InformationINF Chemo: Infusion Injection 15 min 11/30/2021 02:00 PM EDT Infusion Therapy CV OV 01/10/2022 02:30 PM EDT [facility] The Following Activity and Diet Have Been Ordered for You No qualifying data available. No qualifying data available. The Following Equipment Has Been Ordered for You No qualifying data available. The Following Treatments Have Been Ordered for You Discharge Labs No qualifying data available. Discharge Radiology No qualifying data available. Other Therapies No qualifying data available. Post Acute Orders No qualifying data available. Someone Will Contact You Regarding These Home Health Referrals No home referrals have been ordered for you. No one will call you. Allergies Humira Medications Please ask your primary doctor or pharmacist before taking any other medication not listed, including over the counter drugs, herbal medications, vitamins and or supplements as they may interact withyour home medications. What How Much When Instructions Last Dose Unchanged amLODIPine (amLODIPine 5 mg oral tablet) 1 tab(s) by mouth Once a day Unchanged ascorbic acid (Vitamin C 1000 mg oral tablet) 1 tab(s) by mouth Once a day Unchanged atorvastatin (atorvastatin 20 mg oral tablet) 1 tab(s) by mouth Once a day Unchanged bimatoprost ophthalmic (Lumigan 0.01% ophthalmic solution (NF)) 1 Drops Both eyes Once a day (in the evening) Unchanged calcium carbonate (calcium carbonate 600 mg oral tablet, chewable) Chewed Once a day Unchanged carvedilol (carvedilol 12.5 mg oral tablet) 1 tab(s) by mouth Two (2) times a day Duration: 90 Days Unchanged cetirizine-pseudoephedrine (ZyrTEC-D 5 mg-120 mg oral tablet, extended release) 1 tab(s) by mouth Every 24 hours as needed for Allergic reaction Unchanged famotidine (Pepcid 40 mg oral tablet) 1 tab(s) by mouth Every day Unchanged folic acid (folic acid 1 mg oral tablet) 1 tab(s) by mouth Once a day Unchanged furosemide (furosemide 20 mg oral tablet) 1 tab(s) by mouth Once a day Unchanged gabapentin (gabapentin 300 mg oral capsule) 1 cap by mouth Three (3) times a day Unchanged hydrALAZINE (hydrALAZINE 25 mg oral tablet) See instructions 25mg QID Unchanged insulin glargine (Lantus) 8 unit(s) Subcutaneous Once a day Unchanged insulin lispro (HumaLOG) (HumaLOG 100 units/ mL injectable solution VIAL) 8 unit(s) Subcutaneous Two (2) times daily before meals Unchanged levothyroxine (levothyroxine 25 mcg (0.025 mg) oral tablet) 1 tab(s) by mouth Once a day before a meal Unchanged multivitamin (Multivitamin) 1 tab(s) by mouth Every day Unchanged pantoprazole (pantoprazole 40 mg oral enteric coated tablet) 1 tab(s) by mouth Once a day before a meal Please take this list to your next doctor s visit. Bring all medications you take, including over the counter medications, herbals and other supplements with you to your doctor s visit. Patients and families are reminded to discard old lists and to update any records with all medication providers or retail pharmacies. Additional Information VACCINATE! IT SAVES LIVES! Members of the community who have not yet received the COVID-19 vaccine and would like to receive it can visit one of [facility] vaccine clinics. There are many vaccine clinic locations within the [facility]. For locations and available times, please visit [email or web address] It is important to note that some COVID mobile vaccine clinics are held outdoors and may be canceled in rainy or stormy conditions. To learn more about pediatric vaccinations (ages 5-11), we invite you to visit the [employer] [facility] webpage. [email or web address]/pages/[email or web address]-Ffidstbyhe-[email or web address]-Hwa stions.htmlTo learn more about the COVID-19 vaccine, we invite you to visit the [facility] website for a list of frequently asked questions. [email or web address] [place] [facility] Patient Portal Access Instructions: Stay connected with your healthcare team and access your personal medical information anytime with the [facility] Patient Portal.If you would like a full copy of your medical records, please contact the [facility] Medical Records Department, Friday through Friday between 8a.m. and 4:30p.m. Please follow the directions below to access the portal: 1.Access the email account you provided upon registration to the [facility].2.Look for an invitation email from [facility].3.Open the email and access the invitation link: Accept Invitation to [facility]4.Fill in the required diaz to create your account. Sign into [email or web address] with your username and password that you created in the above steps to stay up to date. You can then view a summary of results, a summary of your visits, and the ability to download your summaries to your computer or send the information securely to a physician. Remember that your healthcare information is confidential, so carefully consider who you will allow to register on the [facility] Patient Portal for access to your information. You can also access the [employer] Patient Portal on the [employer] carol ann. Simply click on Health Records under VersionEye and then click on the [employer] logo. HOW TO SAFELY DISPOSE OF PRESCRIPTION MEDICATIONS Please use one of the following methods to safely dispose of your unused medications. 1.Use a drug disposal kit: the drug disposal pouch allows you to safely discard your old and unuseddrugs. Ask your nurse to give you one when you are discharged.2.Visit a local take-back location: Many local pharmacies and police departments have programs that collect old and unwanted prescriptiondrugs. Call your local pharmacy or go to http://Gearworks.Sophia Search/0Y2Fe5y to find one close to you.3.Make use of household items: Use cat litter or old coffee grounds to dispose medications if other options arenot available. Mix your drugs with these household products, seal them in an airtight container andthrow it into the garbage. Call [facility]: [phone] to be sure your drugs can be disposed of in this way. Some medicines may require a different approach.4.Never flush your medications down the toilet. IF YOU HAVE BEEN PRESCRIBED AN OPIOID FOR PAIN If you have been prescribed an opioid (such as hydrocodone, oxycodone or morphine), it is critical to understand the possible side effects and risks of opioid pain medications. Even when taken as directed, opioids can have several side effects including: Tolerance, meaning you might need to take more of a medication for the same pain relief. Nausea, vomiting and/or constipation. Sleepiness, dizziness, dry mouth, confusion, depression or itching. Physical dependence, meaning you have withdrawal symptoms when a medication is stopped, can develop within a few days. KNOW YOUR RESPONSIBILITIES It is important to know exactly how much and how often to take the opioid pain medications you are prescribed. Never take opioids in higher amounts or more often than prescribed. Do not combine opioids with alcohol or other drugs that cause drowsiness, such as benzodiazepines, also known as benzos, including diazepam and alprazolam, muscle relaxants or sleep aids. Never sell or share prescription opioids. This is illegal. Store opioids in a secure place and out of reach of others (including children, family, friends and visitors). The last page of this document has been signed and retained as a CHART COPY. Signatures Patient Education Materials Medication Leaflets My discharge plan and instructions have been reviewed and explained to me and I,LAVINIA DURAND understand my current condition and have read and understand these discharge instructions. I have received a written copy of the plan/instructions. If I have questions, I am aware that I should contact my doctor. 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 The following is importantdischarge information regarding your hospital visit. Your Care Team SHIRA ROY MD What to do next Scheduled Follow-Up Appointments Appointment Type When Where Contact InformationINF Chemo: Infusion Injection 15 min 11/30/2021 02:00 PM EDT Infusion Therapy CV OV 01/10/2022 02:30 PM EDT [facility] Heart & Vascular [facility] The Following Activity and Diet Have Been Ordered for You No qualifying data available. No qualifying data available. The Following Equipment Has Been Ordered for You No qualifying data available. The Following Treatments Have Been Ordered for You Discharge Labs No qualifying data available. Discharge Radiology No qualifying data available. Other Therapies No qualifying data available. Post Acute Orders No qualifying data available. Someone Will Contact You Regarding These Home Health Referrals No home referrals have been ordered for you. No one will call you. Allergies Humira Medications Please ask your primary doctor or pharmacist before taking any other medication not listed, including over the counter drugs, herbal medications, vitamins and or supplements as they may interact withyour home medications. What How Much When Instructions Last Dose Unchanged amLODIPine (amLODIPine 5 mg oral tablet) 1 tab(s) by mouth Once a day Unchanged ascorbic acid (Vitamin C 1000 mg oral tablet) 1 tab(s) by mouth Once a day Unchanged atorvastatin (atorvastatin 20 mg oral tablet) 1 tab(s) by mouth Once a day Unchanged bimatoprost ophthalmic (Lumigan 0.01% ophthalmic solution (NF)) 1 Drops Both eyes Once a day (in the evening) Unchanged calcium carbonate (calcium carbonate 600 mg oral tablet, chewable) Chewed Once a day Unchanged carvedilol (carvedilol 12.5 mg oral tablet) 1 tab(s) by mouth Two (2) times a day Duration: 90 Days Unchanged cetirizine-pseudoephedrine (ZyrTEC-D 5 mg-120 mg oral tablet, extended release) 1 tab(s) by mouth Every 24 hours as needed for Allergic reaction Unchanged famotidine (Pepcid 40 mg oral tablet) 1 tab(s) by mouth Every day Unchanged folic acid (folic acid 1 mg oral tablet) 1 tab(s) by mouth Once a day Unchanged furosemide (furosemide 20 mg oral tablet) 1 tab(s) by mouth Once a day Unchanged gabapentin (gabapentin 300 mg oral capsule) 1 cap by mouth Three (3) times a day Unchanged hydrALAZINE (hydrALAZINE 25 mg oral tablet) See instructions 25mg QID Unchanged insulin glargine (Lantus) 8 unit(s) Subcutaneous Once a day Unchanged insulin lispro (HumaLOG) (HumaLOG 100 units/ mL injectable solution VIAL) 8 unit(s) Subcutaneous Two (2) times daily before meals Unchanged levothyroxine (levothyroxine 25 mcg (0.025 mg) oral tablet) 1 tab(s) by mouth Once a day before a meal Unchanged multivitamin (Multivitamin) 1 tab(s) by mouth Every day Unchanged pantoprazole (pantoprazole 40 mg oral enteric coated tablet) 1 tab(s) by mouth Once a day before a meal Please take this list to your next doctor s visit. Bring all medications you take, including over the counter medications, herbals and other supplements with you to your doctor s visit. Patients and families are reminded to discard old lists and to update any records with all medication providers or retail pharmacies. Additional Information VACCINATE! IT SAVES LIVES! Members of the community who have not yet received the COVID-19 vaccine and would like to receive it can visit one of [facility] vaccine clinics. There are many vaccine clinic locations within the [facility]. For locations and available times, please visit [email or web address] It is important to note that some COVID mobile vaccine clinics are held outdoors and may be canceled in rainy or stormy conditions. To learn more about pediatric vaccinations (ages 5-11), we invite you to visit the [employer] [facility] webpage. [email or web address]/[email or web address] [email or web address].htmlTo learn more about the COVID-19 vaccine, we invite you to visit the [employer] website for a list of frequently asked questions. [email or web address] [facility] Patient Portal Access Instructions: Stay connected with your healthcare team and access your personal medical information anytime with the [facility] Patient Portal.If you would like a full copy of your medical records, please contact the [facility] Medical Records Department, Friday through Friday between 8a.m. and 4:30p.m. Please follow the directions below to access the portal: 1.Access the email account you provided upon registration to the [facility].2.Look for an invitation email from [facility].3.Open the email and access the invitation link: Accept Invitation to Bharat[employer]ze4.Fill in the required diaz to create your account. Sign into [email or web address] with your username and password that you created in the above steps to stay up to date. You can then view a summary of results, a summary of your visits, and the ability to download your summaries to your computer or send the information securely to a physician. Remember that your healthcare information is confidential, so carefully consider who you will allow to register on the [employer] Patient Portal for access to your information. You can also access the [employer] Patient Portal on the General Assembly carol ann. Simply click on Health Records under VersionEye and then click on the [employer] logo. HOW TO SAFELY DISPOSE OF PRESCRIPTION MEDICATIONS Please use one of the following methods to safely dispose of your unused medications. 1.Use a drug disposal kit: the drug disposal pouch allows you to safely discard your old and unuseddrugs. Ask your nurse to give you one when you are discharged.2.Visit a local take-back location: Many local pharmacies and police departments have programs that collect old and unwanted prescriptiondrugs. Call your local pharmacy or go to [email or web address] [email or web address] to find one close to you.3.Make use of household items: Use cat litter or old coffee grounds to dispose medications if other options arenot available. Mix your drugs with these household products, seal them in an airtight container andthrow it into the garbage. Call [facility]: [phone] to be sure your drugs can be disposed of in this way. Some medicines may require a different approach.4.Never flush your medications down the toilet. IF YOU HAVE BEEN PRESCRIBED AN OPIOID FOR PAIN If you have been prescribed an opioid (such as hydrocodone, oxycodone or morphine), it is critical to understand the possible side effects and risks of opioid pain medications. Even when taken as directed, opioids can have several side effects including: Tolerance, meaning you might need to take more of a medication for the same pain relief. Nausea, vomiting and/or constipation. Sleepiness, dizziness, dry mouth, confusion, depression or itching. Physical dependence, meaning you have withdrawal symptoms when a medication is stopped, can develop within a few days. KNOW YOUR RESPONSIBILITIES It is important to know exactly how much and how often to take the opioid pain medications you are prescribed. Never take opioids in higher amounts or more often than prescribed. Do not combine opioids with alcohol or other drugs that cause drowsiness, such as benzodiazepines, also known as benzos, including diazepam and alprazolam, muscle relaxants or sleep aids. Never sell or share prescription opioids. This is illegal. Store opioids in a secure place and out of reach of others (including children, family, friends and visitors). The last page of this document has been signed and retained as a CHART COPY. Signatures Patient Education Materials Medication Leaflets My discharge plan and instructions have been reviewed and explained to me and I,LAVINIA DURAND understand my current condition and have read and understand these discharge instructions. I have received a written copy of the plan/instructions. If I have questions, I am aware that I should contact my doctor. 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: Date/Time: Relationship to Patient: Witness Name/Signature: Date/Time: [id number] Summary of episode note LAVINIA DURAND :1940 Visit Date:11/09/2021 Your Visit Summary Your Care Team Attending Physician - LORRIE MCKNIGHT MD Primary Care Physician - SHIRA ROY MD Vitals Temperature (Oral) 36.5 C Heart Rate 74 Respiratory Rate 18 Blood Pressure 185/66 What to do next Scheduled Follow-Up Appointments Appointment Type When Where Contact InformationCV OV [facility]12[facility]21 02[facility] INF Chemo: Infusion Injection 15 min 11/16/2021 02:00 PM EDT Infusion Therapy INF Chemo: Infusion Injection 15 min 11/23/2021 02:00 PM EDT Infusion Therapy CV OV 01/10/2022 02:30 PM EDT [facility] Medications What How Much When Instructions Unchanged amLODIPine (amLODIPine 5 mg oral tablet) 1 tab(s) by mouth Once a day Unchanged ascorbic acid (Vitamin C 1000 mg oral tablet) 1 tab(s) by mouth Once a day Unchanged atorvastatin (atorvastatin 20 mg oral tablet) 1 tab(s) by mouth Once a day Unchanged bimatoprost ophthalmic (Lumigan 0.01% ophthalmic solution (NF)) 1 Drops Both eyes Once a day (in the evening) Unchanged calcium carbonate (calcium carbonate 600 mg oral tablet, chewable) Chewed Once a day Unchanged carvedilol (carvedilol 12.5 mg oral tablet) 1 tab(s) by mouth Two (2) times a day Duration: 90 Days Unchanged cetirizine-pseudoephedrine (ZyrTEC-D 5 mg-120 mg oral tablet, extended release) 1 tab(s) by mouth Every 24 hours as needed for Allergic reaction Unchanged famotidine (Pepcid 40 mg oral tablet) 1 tab(s) by mouth Every day Unchanged folic acid (folic acid 1 mg oral tablet) 1 tab(s) by mouth Once a day Unchanged furosemide (furosemide 20 mg oral tablet) 1 tab(s) by mouth Once a day Unchanged gabapentin (gabapentin 300 mg oral capsule) 1 cap by mouth Three (3) times a day Unchanged hydrALAZINE (hydrALAZINE 25 mg oral tablet) See instructions 25mg QID Unchanged insulin glargine (Lantus) 8 unit(s) Subcutaneous Once a day Unchanged insulin lispro (HumaLOG) (HumaLOG 100 units/ mL injectable solution VIAL) 8 unit(s) Subcutaneous Two (2) times daily before meals Unchanged levothyroxine (levothyroxine 25 mcg (0.025 mg) oral tablet) 1 tab(s) by mouth Once a day before a meal Unchanged multivitamin (Multivitamin) 1 tab(s) by mouth Every day Unchanged pantoprazole (pantoprazole 40 mg oral enteric coated tablet) 1 tab(s) by mouth Once a day before a meal Allergies Humira Additional Information VACCINATE! IT SAVES LIVES! Members of the community who have not yet received the COVID-19 vaccine and would like to receive it can visit one of [facility] vaccine clinics. There are many vaccine clinic locations within the [facility]. For locations and available times, please visit [email or web address]. It is important to note that some COVID mobile vaccine clinics are held outdoors and may be canceled in rainy orstormy conditions. To learn more about pediatric vaccinations (ages 5-11), we invite you to visit the [facility] webpage. [email or web address] learn more about the COVID-19 vaccine, we invite you to visit the [place] website for a list of frequently asked questions. [email or web address] [place] [facility] Patient Portal Access Instructions: Stay connected with your healthcare team and access your personal medical information anytime with the [employer] Patient Portal.If you would like a full copy of your medical records, please contact the [facility] Medical Records Department, Friday through Friday between 8a.m. and 4:30p.m. Please follow the directions below to access the portal: 1.Access the email account you provided upon registration to the [facility].2.Look for an invitation email from [facility].3.Open the email and access the invitation link: Accept Invitation to BharatSocialtyze4.Fill in the required diaz to create your account. Sign into [email or web address] with your username and password that you created in the above steps to stay up to date. You can then view a summary of results, a summary of your visits, and the ability to download your summaries to your computer or send the information securely to a physician. Remember that your healthcare information is confidential, so carefully consider who you will allow to register on the [employer] Patient Portal for access to your information. You can also access the [employer] Patient Portal on the General Assembly carol ann. Simply click on Health Records under [employer] and then click on the [employer] logo. HOW TO SAFELY DISPOSE OF PRESCRIPTION MEDICATIONS Please use one of the following methods to safely dispose of your unused medications. 1.Use a drug disposal kit: the drug disposal pouch allows you to safely discard your old and unuseddrugs. Ask your nurse to give you one when you are discharged.2.Visit a local take-back location: Many local pharmacies and police departments have programs that collect old and unwanted prescriptiondrugs. Call your local pharmacy or go to http://bit.Sophia Search/4Q5Fh4k to find one close to you.3.Make use of household items: Use cat litter or old coffee grounds to dispose medications if other options arenot available. Mix your drugs with these household products, seal them in an airtight container andthrow it into the garbage. Call [facility]: [phone] to be sure your drugs can be disposed of in this way. Some medicines may require a different approach.4.Never flush your medications down the toilet. IF YOU HAVE BEEN PRESCRIBED AN OPIOID FOR PAIN If you have been prescribed an opioid (such as hydrocodone, oxycodone or morphine), it is critical to understand the possible side effects and risks of opioid pain medications. Even when taken as directed, opioids can have several side effects including: Tolerance, meaning you might need to take more of a medication for the same pain relief. Nausea, vomiting and/or constipation. Sleepiness, dizziness, dry mouth, confusion, depression or itching. Physical dependence, meaning you have withdrawal symptoms when a medication is stopped, can develop within a few days. KNOW YOUR RESPONSIBILITIES It is important to know exactly how much and how often to take the opioid pain medications you are prescribed. Never take opioids in higher amounts or more often than prescribed. Do not combine opioids with alcohol or other drugs that cause drowsiness, such as benzodiazepines, also known as benzos, including diazepam and alprazolam, muscle relaxants or sleep aids. Never sell or share prescription opioids. This is illegal. Store opioids in a secure place and out of reach of others (including children, family, friends and visitors). The last page of this document has been signed and retained as a CHART COPY. Signatures Patient Education Materials Medication Leaflets My discharge plan and instructions have been reviewed and explained to me and I,LAVINIA DURAND understand my current condition and have read and understand these discharge instructions. I have received a written copy of the plan/instructions. If I have questions, I am aware that I should contact my doctor. 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 She is concerned about CTU in setting of CKD. Pt had MRU on 11/01/21. We discussed that the CTU is not necessary for her treatment plan. We will cancel the appointment. Obi Mcdonnell MD Department of Urology [employer] Laparoscopy Fellow [facility] Summary of episode note LAVINIA DURAND :1940 Visit Date:11/02/2021 Your Visit Summary Your Care Team Attending Physician - LORRIE MCKNIGHT MD Primary Care Physician - SHIRA ROY MD Vitals Temperature (Oral) 36.9 C Heart Rate (Apical) 62 Respiratory Rate 20 Blood Pressure 150/51(Left Arm) What to do next Instructions From Your Doctor You have received the following therapy today: _ Call your physician if any of the following problems occur: _ Scheduled Follow-Up Appointments Appointment Type When Where Contact InformationINF Chemo: Infusion Injection 15 min 11/09/2021 02:00 PM EDT Infusion Therapy INF Chemo: Infusion Injection 15 min 11/16/2021 02:00 PM EDT Infusion Therapy INF Chemo: Infusion Injection 15 min 11/23/2021 02:00 PM EDT Infusion Therapy CV OV 01/10/2022 02:30 PM EDT [facility] Medications What How Much When Instructions Unchanged amLODIPine (amLODIPine 5 mg oral tablet) 1 tab(s) by mouth Once a day Unchanged ascorbic acid (Vitamin C 1000 mg oral tablet) 1 tab(s) by mouth Once a day Unchanged atorvastatin (atorvastatin 20 mg oral tablet) 1 tab(s) by mouth Once a day Unchanged bimatoprost ophthalmic (Lumigan 0.01% ophthalmic solution (NF)) 1 Drops Both eyes Once a day (in the evening) Unchanged calcium carbonate (calcium carbonate 600 mg oral tablet, chewable) Chewed Once a day Unchanged carvedilol (carvedilol 12.5 mg oral tablet) 1 tab(s) by mouth Two (2) times a day Duration: 90 Days Unchanged cetirizine-pseudoephedrine (ZyrTEC-D 5 mg-120 mg oral tablet, extended release) 1 tab(s) by mouth Every 24 hours as needed for Allergic reaction Unchanged famotidine (Pepcid 40 mg oral tablet) 1 tab(s) by mouth Every day Unchanged folic acid (folic acid 1 mg oral tablet) 1 tab(s) by mouth Once a day Unchanged furosemide (furosemide 20 mg oral tablet) 1 tab(s) by mouth Once a day Unchanged gabapentin (gabapentin 300 mg oral capsule) 1 cap by mouth Three (3) times a day Unchanged hydrALAZINE (hydrALAZINE 25 mg oral tablet) See instructions 25mg QID Unchanged insulin glargine (Lantus) 8 unit(s) Subcutaneous Once a day Unchanged insulin lispro (HumaLOG) (HumaLOG 100 units/ mL injectable solution VIAL) 8 unit(s) Subcutaneous Two (2) times daily before meals Unchanged levothyroxine (levothyroxine 25 mcg (0.025 mg) oral tablet) 1 tab(s) by mouth Once a day before a meal Unchanged multivitamin (Multivitamin) 1 tab(s) by mouth Every day Unchanged pantoprazole (pantoprazole 40 mg oral enteric coated tablet) 1 tab(s) by mouth Once a day before a meal Allergies Humira Medication Leaflets epoetin miguel (e MARY e any GRIMM fa) Epogen, Jose, Retryan What is the most important information I should know about epoetin miguel? This medicine can cause serious side effects, including heart attack or stroke. Epoetin miguel may also speed up tumor growth, or shorten remission or survival time in some people. Talk with your doctor about the risks and benefits of using epoetin miguel. You should not use this medicine if you have uncontrolled high blood pressure, or if you have ever had pure red cell aplasia (PRCA, a type of anemia) caused by using epoetin miguel or darbepoetin miguel. Call your doctor at once if you have signs of a blood clot: sudden numbness or weakness, problems with vision or speech, chest pain, trouble breathing, pain or cold feeling in an arm or leg. What is epoetin miguel? Epoetin mgiuel is a man-made form of a protein that helps your body produce red blood cells. This protein may be reduced when you have kidney failure or use certain medications. When fewer red blood cells are produced, you can develop a condition called anemia. Epoetin miguel is used to treat anemia caused by chemotherapy in adults and children at least 5 yearsold. Epoetin miguel is also used to treat anemia caused by chronic kidney disease in adults and children at least 1 month old. Epoetin miguel is also used to treat anemia in adults taking zidovudine to treat HIV (human immunodeficiency virus). Epoetin miguel is also used to reduce the need for red blood cell transfusions in adults having certain types of surgery. Epoetin miguel may also be used for purposes not listed in this medication guide. What should I discuss with my healthcare provider before using epoetin miguel? You should not use this medication if you are allergic to epoetin miguel or darbepoetin miguel, or if: you have untreated or uncontrolled high blood pressure; you have had pure red cell aplasia (PRCA, a type of anemia) after using darbepoetin miguel or epoetinalfa; or you use an epoetin miguel multi-dose vial and you are or . Do not use epoetin miguel from a multi-dose vial when giving medicine to a baby. The multi-dose vial contains an ingredient that can cause serious side effects or in very young infants or premature babies. Epoetin miguel may speed up tumor growth, or shorten remission or survival time in some people with certain types of cancer. Talk with your doctor about the risks and benefits of using epoetin miguel. Tell your doctor if you have ever had: heart disease, high blood pressure; a heart attack, stroke, or blood clot; a seizure disorder; phenylketonuria (PKU); or kidney disease (or if you are on dialysis). It is not known whether this medicine will harm an unborn baby. Tell your doctor if you are or plan to become . Do not breastfeed while using this medicine, and for at least 2 months after your last dose. Do not use epoetin miguel from a multi-dose vial if you are or . Epoetin miguel is made from donated human plasma and may contain viruses or other infectious agents. Donated plasma is tested and treated to reduce the risk of contamination, but there is still a smallpossibility it could transmit disease. Ask your doctor about any possible risk. How should I use epoetin miguel? Follow all directions on your prescription label and read all medication guides or instruction sheets. Your doctor may occasionally change your dose. Use the medicine exactly as directed. Epoetin miguel is injected under the skin, or as an infusion into a vein. A healthcare provider may teach you how to properly use the medication by yourself. Read and carefully follow any Instructions for Use provided with your medicine. Do not use epoetin miguel if you don't understand all instructions for proper use. Ask your doctor or pharmacist if you have questions. Prepare your injection only when you are ready to give it. Do not use if the medicine has changed colors or has particles in it. Call your pharmacist for new medicine. Do not shake this medicine or you may ruin it. Call your doctor if you feel weak, tired, or light-headed. These may be signs that your body has stopped responding to epoetin miguel. You may need frequent medical tests to be sure this medicine is not causing harmful effects. Your injections may be delayed based on the results. You may be given other medications to help prevent serious side effects. Keep using these medicinesfor as long as your doctor has prescribed. If you need surgery, tell the surgeon ahead of time that you are using epoetin miguel. You may need to use a medicine to prevent blood clots. Epoetin miguel is only part of a complete treatment program that may also include a special diet. Follow your doctor's instructions very closely. Store in the refrigerator and protect from light. Do not freeze epoetin miguel, and throw away the medication if it has become frozen. Each single-use vial (bottle) of this medicine is for one use only. Throw it away after one use, even if there is still medicine left inside. Throw away any leftover medicine in a multi-dose vial 21 days after the first use. Use a needle and syringe only once and then place them in a puncture-proof 'sharps' container. Follow state or local laws about how to dispose of this container. Keep it out of the reach of children and pets. What happens if I miss a dose? Call your doctor for instructions if you miss a dose of epoetin miguel. What happens if I overdose? Seek emergency medical attention or call the Poison Help line at . What should I avoid while using epoetin miguel? Avoid driving or hazardous activity until you know how this medicine will affect you. Your reactions could be impaired. What are the possible side effects of epoetin miguel? Get emergency medical help if you have signs of an allergic reaction (hives, sweating, rapid pulse,wheezing, trouble breathing, severe dizziness or fainting, swelling in your face or throat) or a severe skin reaction (fever, sore throat, burning eyes, skin pain, red or purple skin rash with blistering and peeling). Epoetin miguel can cause serious side effects, including heart attack or stroke. Seek emergency medical help if you have: heart attack symptoms--chest pain or pressure, pain spreading to your jaw or shoulder, nausea, sweating; signs of a blood clot--pain, swelling, warmth, redness, cold feeling, or pale appearance of an arm or leg; or signs of a stroke--sudden numbness or weakness (especially on one side of the body), sudden severe headache, slurred speech, problems with vision or balance. Call your doctor at once if you have: unusual tiredness; a seizure (convulsions); high blood sugar--increased thirst, increased urination, dry mouth, fruity breath odor; low potassium--leg cramps, constipation, irregular heartbeats, fluttering in your chest, increased thirst or urination, numbness or tingling, muscle weakness or limp feeling; or increased blood pressure--severe headache, blurred vision, pounding in your neck or ears, anxiety, nosebleed. Common side effects may include: fever, chills, cough, feeling short of breath; low potassium, low white blood cells; blood vessel blockage; high blood sugar; joint pain, bone pain, muscle pain or spasm; itching or rash; mouth pain, trouble swallowing; nausea, vomiting; headache, dizziness; trouble sleeping; depressed mood; weight loss; or pain or redness where the medicine was injected. This is not a complete list of side effects and others may occur. Call your doctor for medical advice about side effects. You may report side effects to FDA at 9-575-WUR-5144. What other drugs will affect epoetin miguel? Other drugs may affect epoetin miguel, including prescription and ictj-dpu-gbfadvs medicines, vitamins, and herbal products. Tell your doctor about all your current medicines and any medicine you startor stop using. Where can I get more information? Your pharmacist can provide more information about epoetin miguel. Remember, keep this and all other medicines out of the reach of children, never share your medicines with others, and use this medication only for the indication prescribed. Every effort has been made to ensure that the information provided by [employer]. ('[employer]') is accurate, up-to-date, and complete, but no guarantee is made to that effect. Drug information contained herein may be time sensitive. [employer] information has been compiled for use by healthcare practitioners and consumers in the [place] and therefore [employer] does not warrant that uses outside of the [place] are appropriate, unless specifically indicated otherwise. [employer] drug information does not endorse drugs, diagnose patients or recommend therapy. [employer] drug information isan informational resource designed to assist licensed healthcare practitioners in caring for their p atients and/or to serve consumers viewing this service as a supplement to, and not a substitute for, the expertise, skill, knowledge and judgment of healthcare practitioners. The absence of a warningfor a given drug or drug combination in no way should be construed to indicate that the drug or drug combination is safe, effective or appropriate for any given patient. [employer] does not assume any responsibility for any aspect of healthcare administered with the aid of information [employer] provides. The information contained herein is not intended to cover all possible uses, directions, precautions, warnings, drug interactions, allergic reactions, or adverse effects. If you have questions about the drugs you are taking, check with your doctor, nurse or pharmacist. Copyright 9073-0708 [employer]. Version: 12.. Revision Date: 03/20/2020. Additional Information VACCINATE! IT SAVES LIVES! Members of the community who have not yet received the COVID-19 vaccine and would like to receive it can visit one of [facility] vaccine clinics. There are many vaccine clinic locations within the [facility]. For locations and available times, please visit [email or web address]. It is important to note that some COVID mobile vaccine clinics are held outdoors and may be canceled in rainy orstormy conditions. To learn more about pediatric vaccinations (ages 5-11), we invite you to visit the [facility] webpage. [email or web address] [email or web address] learn more about the COVID-19 vaccine, we invite you to visit the [facility] website for a list of frequently asked questions. [email or web address] [facility] Patient Portal Access Instructions: Stay connected with your healthcare team and access your personal medical information anytime with the [facility] Patient Portal.If you would like a full copy of your medical records, please contact the [facility] Medical Records Department, Friday through Friday between 8a.m. and 4:30p.m. Please follow the directions below to access the portal: 1.Access the email account you provided upon registration to the hospital.2.Look for an invitation email from [facility].3.Open the email and access the invitation link: Accept Invitation to [facility]4.Fill in the required diaz to create your account. Sign into [email or web address] with your username and password that you created in the above steps to stay up to date. You can then view a summary of results, a summary of your visits, and the ability to download your summaries to your computer or send the information securely to a physician. Remember that your healthcare information is confidential, so carefully consider who you will allow to register on the [facility] Patient Portal for access to your information. You can also access the [facility] Patient Portal on the General Assembly carol ann. Simply click on Health Records under VersionEye and then click on the [employer] logo. HOW TO SAFELY DISPOSE OF PRESCRIPTION MEDICATIONS Please use one of the following methods to safely dispose of your unused medications. 1.Use a drug disposal kit: the drug disposal pouch allows you to safely discard your old and unuseddrugs. Ask your nurse to give you one when you are discharged.2.Visit a local take-back location: Many local pharmacies and police departments have programs that collect old and unwanted prescriptiondrugs. Call your local pharmacy or go to http://Gearworks.Sophia Search/9S2Ii3k to find one close to you.3.Make use of household items: Use cat litter or old coffee grounds to dispose medications if other options arenot available. Mix your drugs with these household products, seal them in an airtight container andthrow it into the garbage. Call [facility]: [phone] to be sure your drugs can be disposed of in this way. Some medicines may require a different approach.4.Never flush your medications down the toilet. IF YOU HAVE BEEN PRESCRIBED AN OPIOID FOR PAIN If you have been prescribed an opioid (such as hydrocodone, oxycodone or morphine), it is critical to understand the possible side effects and risks of opioid pain medications. Even when taken as directed, opioids can have several side effects including: Tolerance, meaning you might need to take more of a medication for the same pain relief. Nausea, vomiting and/or constipation. Sleepiness, dizziness, dry mouth, confusion, depression or itching. Physical dependence, meaning you have withdrawal symptoms when a medication is stopped, can develop within a few days. KNOW YOUR RESPONSIBILITIES It is important to know exactly how much and how often to take the opioid pain medications you are prescribed. Never take opioids in higher amounts or more often than prescribed. Do not combine opioids with alcohol or other drugs that cause drowsiness, such as benzodiazepines, also known as benzos, including diazepam and alprazolam, muscle relaxants or sleep aids. Never sell or share prescription opioids. This is illegal. Store opioids in a secure place and out of reach of others (including children, family, friends and visitors). The last page of this document has been signed and retained as a CHART COPY. Signatures Patient Education Materials Medication Leaflets Retacrit 10,000 units/mL pf injectable solution (NEPHROLOGY) My discharge plan and instructions have been reviewed and explained to me and I,LAVINIA DURAND understand my current condition and have read and understand these discharge instructions. I have received a written copy of the plan/instructions. If I have questions, I am aware that I should contact my doctor. 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 Personnel directly involved with the procedure wore the appropriate PPE (Personal Protective Equipment). Patient/Surrogate Stated/Verified: PATIENT VERIFIED(optional for EMERGENT procedures): Patient name, Date of , Relevant allergies and The intended procedure Time Out Communication: Intended patient and procedure match the source documents. Consent documented and matches the intended procedure. Sign Out: SIGN OUT (optional for EMERGENT procedures): No specimen collected. All instruments, equipment, possible retained foreign bodies accounted for. Post-procedure follow-up management communicated and Plan of Care Visit completed when applicable. Shagufta Pascal RN [facility] Nurse Note* Shagufta Pascal RN - 11/01/2021 1:44 PM EDT Actual procedure/procedure scheduled: Yes Performing provider/scheduled provider: Yes Patient was roomed in: Q9- 07 Patient arrived in the room at: 1335 Patient ready for procedure: 1400 The procedure started at ( Time Only): 1420 The procedure ended at: 1430 Was the procedure delayed: Yes: Provider late The patient left the procedure room at: 1440 Shagufta Pascal RN PRE PROCEDURE ASSESSMENT- Cysto Procedure Indication: Cystoscopy Latex Allergy: No Allergies reviewed and updated. Yes Heart valve replacement: No Joint replacement: No Back Office UA otained: yes PROCEDURE PREP-Cysto Patient ID with two(2)identifiers verified by: Shagufta Pascal RN Pre-Procedure Antibiotics: None taken at home nor prior to procedure Patient Prep: Betadine Scrub to perineum and placement of Sterile Drape. COMPLETED Anesthetic Given:10 cc 2% Lidocaine jelly Shagufta Pascal RN UNIVERSAL PROTOCOL / SAFETY CHECKLIST Procedure to be performed: Cystoscopy Sign in Communication: Completed Time Out: Team Confirms the Correct Patient, Correct Procedure, Correct Site and Site Marking, Correct Position (if applicable). Sign Out Discussion: Completed Shagufta Pascal RN POST PROCEDURE NURSE ASSESSMENT Present along with physician during procedure exam. Shagufta Pascal RN Instruction sheet given and reviewed and patient verbalizes understanding: yes Current pain intensity is 0 on a 0-10 pain scale. Shagufta Pascal RN AMBULATORY PATIENT EDUCATION THE FOLLOWING WAS EVALUATED Motivation To Learn: Interested Family/Significant Other Support: High - Very involved in pt care Cognitive Ability: Alert/Oriented Method of Instruction: Written instruction - handouts Verbal instruction The Following Influencing Factors Were Barriers To This Education Session: None The Following Physical Limitations Were Barriers To This Education Session: None Instruction Provided To: Patient and Family member Product Manager Financial Services Present: not applicable Discipline: Nursing Learning Topic: SURVIVAL SKILLS: Complication Prevention Pain Management Symptom Management Patient Evaluation: Verbalizes understanding: Yes Supplemental Material Given: Written Material Instructed By Shagufta Pascal RN In Department Urology . [facility] Procedure note* Yovani Peoples MD - 11/01/2021 1:40 PM EDT Procedure(s): CYSTOSCOPY Pre-Procedure Diagnose(s): Malignant neoplasm of urinary bladder, unspecified site (HCC) Post-Procedure Diagnose(s): Malignant neoplasm of urinary bladder, unspecified site (HCC) PHYSICIANS NOTE: CYSTOSCOPY PROCEDURE: November 01, 2021 CC: Urothelial carcinoma HPI: 80yo F w/ HG urothelial carcinoma s/p robotic right nephroureterectomy on 11/03/20 and TURBT on 03/12/21 s/p intravesical induction BCG completed around June 2021 Last cystoscopy 07/12/21 with no evidence of recurrence and negative cytology. Patient has elevated creatine to 2 per patient has well as GFR of 15 MR Urogram 11/01/21 Nephroureterectomy Pathology: Non-invasive high-grade papillary urothelial carcinoma. - Renal pelvis tumor measuring 3.5 cm in the greatest dimension. - Margins of resection are negative for tumor. TURBT Pathology 1. Urinary bladder, right ureteral orifice, biopsy (A): - Noninvasive papillary urothelial neoplasm (at least medical services assistant). - Grading is precluded by cautery effect and denudation. - Muscularis propria is not present for evaluation. 2. Urinary bladder, left ureteral orifice, biopsy (B): - Papillary urothelial carcinoma, high-grade. - Focally suspicious for early lamina propria invasion (at least medical services assistant, suspicious for pT1). - Muscularis propria is focally present and negative for neoplasm. 3. Urinary bladder, neck, biopsy (C): - Noninvasive papillary urothelial carcinoma, high-grade (at least medical services assistant). - Muscularis propria is not present for evaluation. MRI A/P 02/2021: No lesions reported. The sensitivity of scan was limited due to lack of IV contrast. Sign In History and Physical Exam reviewed and is unchanged. Primary Diagnosis: No diagnosis found. Informed Consent Discussed: Yes. Risks, benefits, alternatives and personnel discussed with patientwho consents to proceed. Sign in Communication: Completed Time Out: Team Confirms the Correct Patient, Correct Procedure; Cystoscopy, Correct Site and Site Marking (not applicable), Correct Position. Affirmation of Time Out: YES Sign Out: Sign Out Discussion: Completed Details of Procedure: After sterile prep and drape, urojet placed into the urethra and held in place for several minutes.The flexible cystoscope was placed through the urethra which was examined in its entirety. There are no urethral strictures. The entire mucosa was examined. The scope was flexed in the dome of the bladder and used to look atthe bladder in retroverted fashion. The scope was removed with a repeat examination of the urethra done during removal. Findings: Urethra has no stricture Recurrence 2 x 2 cm pedunculated TCC looking tumor noted at the left UO IMPRESSION 80yo F w/ HG UTC s/p robotic right nephroureterectomy in 10/2020 and TURBT on 03/12/2021 (HGT1) s/p induction BCG. Cysto noted a 2 x 2 cm pedunculated TCC looking tumor noted at left UO PLAN: Plan for TURBT Scribe Attestation: By signing my name below, I, Joslyn Munguia, attest that this documentation has been prepared under the direction and in the presence of Yovani Peoples M.D. Electronically Signed: Columba Oliveira. November 01, 2021 2:28 PM Provider Attestation: I, Dr. Yovani Peoples personally performed the services described in this documentation. All medical record entries made by the scribe were at my direction and in my presence. I have reviewed the chart and discharge instructions (if applicable) and agree that the record reflects my personal performance and is accurate and complete. Dr. Yovani Peoples MD November 23, 2021, Yovani Peoples MD documented [facility] History of Present illness Narrative* Mel Mitchell RN - 11/01/2021 11:10 AM EDT Radiology Service Progress Note DATE OF SERVICE: November 01, 2021 TIME: 11:07 AM PATIENT WEIGHT: 138 LBS PATIENT IDENTITY VERIFICATION COMPLETED USING TWO (2) STANDARD IDENTIFIERS: Name and Date of confirmed by patient verbally and Name and Date of confirmed by identification band. FALL SCREENING: Has the patient had 2 falls in the last year or 1 fall with injury or currently using an Ambulatory Assistive Device (Walker, Cane, Wheelchair, Crutches, etc.)? No PATIENT GENDER DATA: Female. status: : No status: NO. ALLERGIES: Reviewed and unchanged CONTRAST ALLERGY: No EXAM: MRI - CONTRAST TYPE: GROUP II IV SITE: Ambulatory: A peripheral IV was started in the Right antecubital site with a Angio cath: 22 gauge. and A Saline lock was inserted per protocol IV SITE APPEARANCE: Clean,Dry and Intact SIGNATURE: Mel Mitchell RN PATIENT NAME: Lavinia Durand DATE: November 01, 2021 TIME: 11:07 AM documented in [facility] Summary of episode note LAVINIA DURAND :1940 Visit Date:10/26/2021 Your Visit Summary Tests Performed .Auto Differential .Estimated Glomerular Filtration Rate .Newberry Distribution Width .Neutro Absolute CBC Ferritin Iron Studies RFP Your Care Team Attending Physician - LORRIE MCKNIGHT MD Primary Care Physician - SHIRA ROY MD Vitals Temperature (Oral) 36.7 C Heart Rate 60 Respiratory Rate 18 Blood Pressure 170/54 What to do next Scheduled Follow-Up Appointments Appointment Type When Where Contact InformationINF Chemo: Infusion Injection 15 min 11/02/2021 01:00 PM EDT Infusion Therapy INF Chemo: Infusion Injection 15 min 11/09/2021 01:15 PM EDT Infusion Therapy INF Chemo: Infusion Injection 15 min 11/16/2021 01:00 PM EDT Infusion Therapy INF Chemo: Infusion Injection 15 min 11/23/2021 01:00 PM EDT Infusion Therapy CV OV 01/10/2022 02:30 PM EDT [facility] Medications What How Much When Instructions Unchanged amLODIPine (amLODIPine 5 mg oral tablet) 1 tab(s) by mouth Once a day Unchanged ascorbic acid (Vitamin C 1000 mg oral tablet) 1 tab(s) by mouth Once a day Unchanged atorvastatin (atorvastatin 20 mg oral tablet) 1 tab(s) by mouth Once a day Unchanged bimatoprost ophthalmic (Lumigan 0.01% ophthalmic solution (NF)) 1 Drops Both eyes Once a day (in the evening) Unchanged calcium carbonate (calcium carbonate 600 mg oral tablet, chewable) Chewed Once a day Unchanged carvedilol (carvedilol 12.5 mg oral tablet) 1 tab(s) by mouth Two (2) times a day Duration: 90 Days Unchanged cetirizine-pseudoephedrine (ZyrTEC-D 5 mg-120 mg oral tablet, extended release) 1 tab(s) by mouth Every 24 hours as needed for Allergic reaction Unchanged famotidine (Pepcid 40 mg oral tablet) 1 tab(s) by mouth Every day Unchanged folic acid (folic acid 1 mg oral tablet) 1 tab(s) by mouth Once a day Unchanged furosemide (furosemide 20 mg oral tablet) 1 tab(s) by mouth Once a day Unchanged gabapentin (gabapentin 300 mg oral capsule) 1 cap by mouth Three (3) times a day Unchanged hydrALAZINE (hydrALAZINE 25 mg oral tablet) See instructions 25mg QID Unchanged insulin glargine (Lantus) 8 unit(s) Subcutaneous Once a day Unchanged insulin lispro (HumaLOG) (HumaLOG 100 units/ mL injectable solution VIAL) 8 unit(s) Subcutaneous Two (2) times daily before meals Unchanged levothyroxine (levothyroxine 25 mcg (0.025 mg) oral tablet) 1 tab(s) by mouth Once a day before a meal Unchanged multivitamin (Multivitamin) 1 tab(s) by mouth Every day Unchanged pantoprazole (pantoprazole 40 mg oral enteric coated tablet) 1 tab(s) by mouth Once a day before a meal Test Results .Auto Differential (10/26/2021) Neutrophil % - 69.3 % Lymphocyte % - 18.5 % Monocyte % - 7.1 % Eosinophil % - 4.4 % Basophil % - 0.7 % Lymphocyte, Absolute - 1.5 10^3/mcL Monocyte, Absolute - 0.6 10^3/mcL Eosinophil, Absolute - 0.310^3/mcL Basophil, Absolute - 0.1 10^3/mcL .Estimated Glomerular Filtration Rate (10/26/2021) GFR Non- - 18 ml/min/1.73sqm GFR - 21 ml/min/1.73sqm .Newberry Distribution Width (10/26/2021) Monocyte Distribution Width - Not Performed .Neutro Absolute (10/26/2021) Neutrophil, Absolute - 5.4 10^3/mcL CBC (10/26/2021) WBC - 7.9 10^3/mcL RBC - 2.96 10^6/mcL Hgb - 9.1 G/dL Hct - 25.9 % MCV - 87.4 fL MCH - 30.6 pg MCHC- 35.0 G/dL RDW - 16.4 % Platelet - 182 10^3/mcL MPV - 7.8 fL Ferritin (10/26/2021) Ferritin - 333.5 ng/mL Iron Studies (10/26/2021) Iron - 42 mcg/dL TIBC - 280 mcg/dL Iron Sat - 15 % RFP (10/26/2021) Glucose Level - 117 mg/dL Sodium Level - 136 mEq/L Potassium Level - 4.1 mEq/L Chloride - 105 mEq/LCO2 - 25 mEq/L Electrolyte Balance - 6.0 mEq/L BUN - 39.0 mg/dL Creatinine Lvl (s) - 2.61 mg/dL BUN/Creatinine Ratio - 14.9 ratio Calcium Lvl - 9.6 mg/dL Phosphorus - 4.3 mg/dL Albumin Level - 3.0 G/dL Allergies Humira Additional Information VACCINATE! IT SAVES LIVES! Members of the community who have not yet received the COVID-19 vaccine and would like to receive it can visit one of [facility] vaccine clinics. There are many vaccine clinic locations within the [facility]. For locations and available times, please visit [email or web address]. It is important to note that some COVID mobile vaccine clinics are held outdoors and may be canceled in rainy orstormy conditions. To learn more about pediatric vaccinations (ages 5-11), we invite you to visit the [facility] webpage. [email or web address] [email or web address] learn more about the COVID-19 vaccine, we invite you to visit the [employer] website for a list of frequently asked questions. [email or web address] [facility] Patient Portal Access Instructions: Stay connected with your healthcare team and access your personal medical information anytime with the [facility] Patient Portal.If you would like a full copy of your medical records, please contact the [facility] Medical Records Department, Friday through Friday between 8a.m. and 4:30p.m. Please follow the directions below to access the portal: 1.Access the email account you provided upon registration to the [facility].2.Look for an invitation email from [facility].3.Open the email and access the invitation link: Accept Invitation to [facility]4.Fill in the required diaz to create your account. Sign into [email or web address] with your username and password that you created in the above steps to stay up to date. You can then view a summary of results, a summary of your visits, and the ability to download your summaries to your computer or send the information securely to a physician. Remember that your healthcare information is confidential, so carefully consider who you will allow to register on the [facility] Patient Portal for access to your information. You can also access the [employer] Patient Portal on the General Assembly carol ann. Simply click on Health Records under VersionEye and then click on the [employer] logo. HOW TO SAFELY DISPOSE OF PRESCRIPTION MEDICATIONS Please use one of the following methods to safely dispose of your unused medications. 1.Use a drug disposal kit: the drug disposal pouch allows you to safely discard your old and unuseddrugs. Ask your nurse to give you one when you are discharged.2.Visit a local take-back location: Many local pharmacies and police departments have programs that collect old and unwanted prescriptiondrugs. Call your local pharmacy or go to http://Gearworks.Sophia Search/3G5Zl6d to find one close to you.3.Make use of household items: Use cat litter or old coffee grounds to dispose medications if other options arenot available. Mix your drugs with these household products, seal them in an airtight container andthrow it into the garbage. Call [facility]: [phone] to be sure your drugs can be disposed of in this way. Some medicines may require a different approach.4.Never flush your medications down the toilet. IF YOU HAVE BEEN PRESCRIBED AN OPIOID FOR PAIN If you have been prescribed an opioid (such as hydrocodone, oxycodone or morphine), it is critical to understand the possible side effects and risks of opioid pain medications. Even when taken as directed, opioids can have several side effects including: Tolerance, meaning you might need to take more of a medication for the same pain relief. Nausea, vomiting and/or constipation. Sleepiness, dizziness, dry mouth, confusion, depression or itching. Physical dependence, meaning you have withdrawal symptoms when a medication is stopped, can develop within a few days. KNOW YOUR RESPONSIBILITIES It is important to know exactly how much and how often to take the opioid pain medications you are prescribed. Never take opioids in higher amounts or more often than prescribed. Do not combine opioids with alcohol or other drugs that cause drowsiness, such as benzodiazepines, also known as benzos, including diazepam and alprazolam, muscle relaxants or sleep aids. Never sell or share prescription opioids. This is illegal. Store opioids in a secure place and out of reach of others (including children, family, friends and visitors). The last page of this document has been signed and retained as a CHART COPY. Signatures Patient Education Materials Medication Leaflets My discharge plan and instructions have been reviewed and explained to me and I,LAVINIA DURAND understand my current condition and have read and understand these discharge instructions. I have received a written copy of the plan/instructions. If I have questions, I am aware that I should contact my doctor. 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 Personnel directly involved with the procedure wore the appropriate PPE (Personal Protective Equipment). No special equipment needed. Patient/Surrogate Stated/Verified: PATIENT VERIFIED(optional for EMERGENT procedures): Patient name, Date of , Relevant allergies and The intended procedure Time Out Communication: Intended patient and procedure match the source documents. Consent documented and matches the intended procedure. No relevant labs, photos, and/or imaging studies were applicable for review. No correct side/site applicable for marking and visibility. No medications required for procedure. Fire risk assessed and interventions discussed. No implant(s) inserted. Sign Out: SIGN OUT (optional for EMERGENT procedures): All specimen containers correctly labeled. No instruments, equipment or retained foreign bodies applicable. Post-procedure follow-up management communicated and Plan of Care Visit completed when applicable. Maira Talbot RN [facility] Procedure note* Yovani Peoples MD - 07/12/2021 1:30 PM EDT Procedure(s): CYSTOSCOPY Pre-Procedure Diagnose(s): Encounter for follow-up surveillance of bladder cancer Post-Procedure Diagnose(s): Encounter for follow-up surveillance of bladder cancer [facility] The pt is a 80 year old female who came in today for cystoscopy after her TURBT. She is s/p riight Robotic Nephroureterectomy on 11/03/2020 and TURBT on 03/12/2021. Received intravesical BCG therapy. Nephroureterectomy Pathology: Non-invasive high-grade papillary urothelial carcinoma. - Renal pelvis tumor measuring 3.5 cm in the greatest dimension. - Margins of resection are negative for tumor. TURBT Pathology 1. Urinary bladder, right ureteral orifice, biopsy (A): - Noninvasive papillary urothelial neoplasm (at least medical services assistant). - Grading is precluded by cautery effect and denudation. - Muscularis propria is not present for evaluation. 2. Urinary bladder, left ureteral orifice, biopsy (B): - Papillary urothelial carcinoma, high-grade. - Focally suspicious for early lamina propria invasion (at least medical services assistant, suspicious for pT1). - Muscularis propria is focally present and negative for neoplasm. 3. Urinary bladder, neck, biopsy (C): - Noninvasive papillary urothelial carcinoma, high-grade (at least medical services assistant). - Muscularis propria is not present for evaluation. MRI A/P 02/2021: No lesions reported. The sensitivity of scan was limited due to lack of IV contrast. CYSTOSCOPY NOTE The risks, benefits and alternative of cystoscopy were explained to and understood by the patient who consented to the procedure. The patient understands that there is a risk of bleeding, infection, and damage to the bladder and urethra. The patient's questions were answered and the patient signed informed consent. The patient was placed on the procedure table in the supine position and prepped and draped in the usual sterile fashion. 2% Lidocaine Jelly was placed per urethra as an anesthetic in the standard fashion. Once adequate local anesthesia was achieved, the tip of the flexible cystoscope was carefullyplaced into the urethra under direct visual guidance. The scope was negotiated through the urethra.The bladder was entered and careful taylor endoscopy was carried out. The posterior, superior and lateral ellis and dome of the bladder were all well visualized and the scope was retroflexed upon itself. At the conclusion of the procedure, the flexible cystoscope was removed atraumatically. The patient tolerated the procedure without complications. Findings: Urethra is normal caliber, no stricture Bladder neck looks normal UO's are seen effluxing clear urine Scar of previous resection noted There are tiny red areas that do not look samaria for tumor - continue to monitor with another cysto No tumors, stones, clots noted Impression: - Elevated serum creatinine - Tiny red areas in the bladder that do not look suspicious for tumors Plan: - Follow with nephrology locally - Cystoscopy in 3 months with MRI urogram - Send urine for cytology today Scribe Attestation: By signing my name below, I, Joslyn Munguia, attest that this documentation has been prepared under the direction and in the presence of Yovani Peoples M.D. Electronically Signed: Columba Oliveira. July 12, 2021 2:03 PM Provider Attestation: I, Dr. Yovani Peoples personally performed the services described in this documentation. All medical record entries made by the scribe were at my direction and in my presence. I have reviewed the chart and discharge instructions (if applicable) and agree that the record reflects my personal performance and is accurate and complete. Dr. Yovani Peoples MD July 20, 2021, Yovani Peoples MD [facility]* Maira Talbot RN - 07/12/2021 1:27 PM EDT Actual procedure/procedure scheduled: Yes Performing provider/scheduled provider: Yes Patient was roomed in: Q9- 05 Patient arrived in the room at: 1328 Patient ready for procedure: 1355 The procedure started at ( Time Only): 1358 The procedure ended at: 1400 Was the procedure delayed: No The patient left the procedure room at: 1415 Maira Talbot RN PRE PROCEDURE ASSESSMENT- Cysto Procedure Indication: Cystoscopy Latex Allergy: No Allergies reviewed and updated. Yes Pre-Procedure Vital Signs: BP: 186/88 Pulse: 60 Heart valve replacement: No Joint replacement: Yes Back Office UA otained: yes PROCEDURE PREP-Cysto Patient ID with two(2)identifiers verified by: Maira Talbot RN Pre-Procedure Antibiotics: None taken at home nor prior to procedure Patient Prep: Betadine Scrub to perineum and placement of Sterile Drape. COMPLETED Anesthetic Given:10 cc 2% Lidocaine jelly Maira Talbot RN UNIVERSAL PROTOCOL / SAFETY CHECKLIST Procedure to be performed: Cystoscopy Sign in Communication: Completed Time Out: Team Confirms the Correct Patient, Correct Procedure, Correct Site and Site Marking, Correct Position (if applicable). Sign Out Discussion: Completed Maira Talbot RN POST PROCEDURE NURSE ASSESSMENT Present along with physician during procedure exam. Maira Talbot RN Instruction sheet given and reviewed and patient verbalizes understanding: yes Post-Procedure Vital Signs: BP: 189/90 Pulse: 59 Post Procedure Antibiotic: As Prescribed Current pain intensity is 0 on a 0-10 pain scale. Maira Talbot RN AMBULATORY PATIENT EDUCATION THE FOLLOWING WAS EVALUATED Motivation To Learn: Interested Family/Significant Other Support: High - Very involved in pt care Cognitive Ability: Alert/Oriented Method of Instruction: Individual instruction The Following Influencing Factors Were Barriers To This Education Session: None The Following Physical Limitations Were Barriers To This Education Session: None Instruction Provided To: Patient and Daughter Product Manager Financial Services Present: no Discipline: Nursing Learning Topic: SURVIVAL SKILLS: Symptom Management Patient Evaluation: Verbalizes understanding: Yes Supplemental Material Given: Written Material Instructed By Maira Talbot RN In Department Urology . [facility] + Plan note Future Scheduled Tests Radiology* CT Abdomen and Pelvis w/ contrast 02/21/21 [facility] Evaluation + Plan note Future Appointments Appointment Date:03/27/2021 02:45:00 PM Scheduled Provider: Location:[facility] [place] Appointment Type:CV OV Future Scheduled Tests Radiology* CT Abdomen and Pelvis w/ contrast 02/21/21 [facility] evaluation + Plan note Future Appointments Appointment Date:05/09/2021 01:00:00 PM Scheduled Provider: Location:[facility] Appointment Type:INF Infusion: Venofer (3 Hours) Appointment Date:05/11/2021 12:30:00 PM Scheduled Provider: Location:[facility] Appointment Type:INF Infusion: Venofer (3 Hours) Future Scheduled Tests Radiology* CT Abdomen and Pelvis w/ contrast 02/21/21 [facility] G2 Crowdaluation + Plan note Future Appointments Appointment Date:05/11/2021 12:30:00 PM Scheduled Provider: Location:[facility] Appointment Type:INF Infusion: Venofer (3 Hours) Future Scheduled Tests Radiology* CT Abdomen and Pelvis w/ contrast 02/21/21 [facility] evaluation + Plan note Future Appointments Appointment Date:08/31/2021 02:00:00 PM Scheduled Provider: Location:[facility] [place] Appointment Type:CV OV Future Scheduled Tests Radiology* CT Abdomen and Pelvis w/ contrast 02/21/21 [facility] evaluation + Plan note Future Appointments Appointment Date:07/18/2021 02:00:00 PM Scheduled Provider: Location:[facility] Appointment Type:INF Injection - Procrit Appointment Date:08/31/2021 02:00:00 PM Scheduled Provider: Location:[facility] [place] Appointment Type:CV OV Future Scheduled Tests Radiology* CT Abdomen and Pelvis w/ contrast 02/21/21 [facility] evaluation + Plan note Future Appointments Appointment Date:07/25/2021 02:00:00 PM Scheduled Provider: Location:[facility] Appointment Type:INF Injection - Procrit Appointment Date:08/31/2021 02:00:00 PM Scheduled Provider: Location:[facility] [place] Appointment Type:CV OV Future Scheduled Tests Radiology* CT Abdomen and Pelvis w/ contrast 02/21/21 [facility] evaluation + Plan note Future Appointments Appointment Date:08/08/2021 02:00:00 PM Scheduled Provider: Location:[facility] Appointment Type:INF Injection - Procrit Appointment Date:08/15/2021 02:00:00 PM Scheduled Provider: Location:[facility] Appointment Type:INF Injection - Procrit Appointment Date:08/22/2021 02:00:00 PM Scheduled Provider: Location:[facility] Appointment Type:INF Injection - Procrit Appointment Date:08/31/2021 02:00:00 PM Scheduled Provider: Location:[facility] [place] Appointment Type:CV OV Future Scheduled Tests Radiology* CT Abdomen and Pelvis w/ contrast 02/21/21 [facility] evaluation + Plan note Future Appointments Appointment Date:08/15/2021 02:00:00 PM Scheduled Provider: Location:[facility] Appointment Type:INF Injection - Procrit Appointment Date:08/22/2021 02:00:00 PM Scheduled Provider: Location:INF Appointment Type:INF Injection - Procrit Appointment Date:09/27/2021 01:15:00 PM Scheduled Provider: Location:[facility] [place] Appointment Type:CV OV Future Scheduled Tests Radiology* CT Abdomen and Pelvis w/ contrast 02/21/21 [facility] evaluation + Plan note Future Appointments Appointment Date:08/22/2021 02:00:00 PM Scheduled Provider: Location:[facility] Appointment Type:INF Injection - Procrit Appointment Date:09/27/2021 01:15:00 PM Scheduled Provider: Location:[facility] [place] Appointment Type:CV OV Future Scheduled Tests Radiology* CT Abdomen and Pelvis w/ contrast 02/21/21 [facility] evaluation + Plan note Future Appointments Appointment Date:08/27/2021 02:00:00 PM Scheduled Provider: Location:[facility] Appointment Type:INF Infusion: Venofer (2 Hours) Appointment Date:08/29/2021 02:00:00 PM Scheduled Provider: Location:[facility] Appointment Type:INF Infusion: Venofer (2 Hours) Appointment Date:08/31/2021 02:00:00 PM Scheduled Provider: Location:[facility] Appointment Type:INF Infusion: Venofer (2 Hours) Appointment Date:09/27/2021 01:15:00 PM Scheduled Provider: Location:[facility] [place] Appointment Type:CV OV Future Scheduled Tests Radiology* CT Abdomen and Pelvis w/ contrast 02/21/21 [facility] evaluation + Plan note Future Appointments Appointment Date:08/29/2021 02:00:00 PM Scheduled Provider: Location:[facility] Appointment Type:INF Infusion: Venofer (2 Hours) Appointment Date:08/31/2021 02:00:00 PM Scheduled Provider: Location:INF Appointment Type:INF Infusion: Venofer (2 Hours) Appointment Date:09/27/2021 01:15:00 PM Scheduled Provider: Location:[facility] Appointment Type:CV OV Future Scheduled Tests Radiology* CT Abdomen and Pelvis w/ contrast 02/21/21 [facility] evaluation + Plan note Future Appointments Appointment Date:09/03/2021 02:00:00 PM Scheduled Provider: Location:[facility] Appointment Type:INF Infusion: Venofer (2 Hours) Appointment Date:09/27/2021 01:15:00 PM Scheduled Provider: Location:[facility] Appointment Type:CV OV Future Scheduled Tests Radiology* CT Abdomen and Pelvis w/ contrast 02/21/21 [facility] evaluation + Plan note Future Appointments Appointment Date:09/27/2021 01:15:00 PM Scheduled Provider: Location:[facility] Appointment Type:CV OV Future Scheduled Tests Radiology* CT Abdomen and Pelvis w/ contrast 02/21/21 [facility] evaluation + Plan note Future Appointments Appointment Date:11/02/2021 01:00:00 PM Scheduled Provider: Location:[facility] Appointment Type:INF Chemo: Infusion Injection 15 min Appointment Date:11/09/2021 01:15:00 PM Scheduled Provider: Location:[facility] Appointment Type:INF Chemo: Infusion Injection 15 min Appointment Date:11/16/2021 01:00:00 PM Scheduled Provider: Location:[facility] Appointment Type:INF Chemo: Infusion Injection 15 min Appointment Date:11/23/2021 01:00:00 PM Scheduled Provider: Location:[facility] Appointment Type:INF Chemo: Infusion Injection 15 min Appointment Date:01/10/2022 02:30:00 PM Scheduled Provider: Location:[facility] Appointment Type:CV OV Future Scheduled Tests Radiology* CT Abdomen and Pelvis w/ contrast 02/21/21 [facility] evaluation + Plan note Future Appointments Appointment Date:11/09/2021 02:00:00 PM Scheduled Provider: Location:[facility] Appointment Type:INF Chemo: Infusion Injection 15 min Appointment Date:11/16/2021 02:00:00 PM Scheduled Provider: Location:[facility] Appointment Type:INF Chemo: Infusion Injection 15 min Appointment Date:11/23/2021 02:00:00 PM Scheduled Provider: Location:[facility] Appointment Type:INF Chemo: Infusion Injection 15 min Appointment Date:01/10/2022 02:30:00 PM Scheduled Provider: Location:[facility] [place] Appointment Type:CV OV Future Scheduled Tests Radiology* CT Abdomen and Pelvis w/ contrast 02/21/21 [facility] evaluation + Plan note Future Appointments Appointment Date:11/12/2021 02:30:00 PM Scheduled Provider: Location:[facility] Appointment Type:CV OV Appointment Date:11/16/2021 02:00:00 PM Scheduled Provider: Location:[facility] Appointment Type:INF Chemo: Infusion Injection 15 min Appointment Date:11/23/2021 02:00:00 PM Scheduled Provider: Location:[facility] Appointment Type:INF Chemo: Infusion Injection 15 min Appointment Date:01/10/2022 02:30:00 PM Scheduled Provider: Location:[facility] [place] Appointment Type:CV OV Future Scheduled Tests Radiology* CT Abdomen and Pelvis w/ contrast 02/21/21 [facility] evaluation + Plan note Future Appointments Appointment Date:11/30/2021 02:00:00 PM Scheduled Provider: Location:[facility] Appointment Type:INF Chemo: Infusion Injection 15 min Appointment Date:01/10/2022 02:30:00 PM Scheduled Provider: Location:[facility] [place] Appointment Type:CV OV Future Scheduled Tests Radiology* CT Abdomen and Pelvis w/ contrast 02/21/21 [facility] evaluation + Plan note Future Appointments Appointment Date:01/10/2022 02:30:00 PM Scheduled Provider: Location:[facility] [place] Appointment Type:CV OV Future Scheduled Tests Radiology* CT Abdomen and Pelvis w/ contrast 02/21/21 [facility] G2 Crowdaluation + Plan note Future Appointments Appointment Date:01/03/2022 02:30:00 PM Scheduled Provider: Location:[facility] Appointment Type:INF Injection - Procrit Appointment Date:01/10/2022 02:30:00 PM Scheduled Provider: Location:[facility] [place] Appointment Type:CV OV Appointment Date:01/10/2022 02:30:00 PM Scheduled Provider: Location:[facility] Appointment Type:INF Injection - Procrit Appointment Date:01/17/2022 02:30:00 PM Scheduled Provider: Location:[facility] Appointment Type:INF Injection - Procrit Appointment Date:01/24/2022 02:30:00 PM Scheduled Provider: Location:[facility] Appointment Type:INF Injection - Procrit Future Scheduled Tests Radiology* CT Abdomen and Pelvis w/ contrast 02/21/21 [facility] G2 Crowdaluation + Plan note Future Appointments Appointment Date:01/07/2022 02:15:00 PM Scheduled Provider: Location:[facility] Appointment Type:INF Labwork Appointment Date:01/10/2022 02:30:00 PM Scheduled Provider: Location:[facility] Appointment Type:CV OV Appointment Date:01/10/2022 02:30:00 PM Scheduled Provider: Location:[facility] Appointment Type:INF Injection - Procrit Appointment Date:01/17/2022 02:15:00 PM Scheduled Provider: Location:[facility] Appointment Type:INF Labwork Appointment Date:01/17/2022 02:30:00 PM Scheduled Provider: Location:[facility] Appointment Type:INF Injection - Procrit Appointment Date:01/24/2022 02:30:00 PM Scheduled Provider: Location:[facility] Appointment Type:INF Injection - Procrit Future Scheduled Tests Radiology* CT Abdomen and Pelvis w/ contrast 02/21/21 [facility] evMoqizone Holdingation + Plan note Future Appointments Appointment Date:01/17/2022 02:15:00 PM Scheduled Provider: Location:[facility] Appointment Type:INF Labwork Appointment Date:01/17/2022 02:30:00 PM Scheduled Provider: Location:[facility] Appointment Type:INF Injection - Procrit Appointment Date:01/24/2022 02:30:00 PM Scheduled Provider: Location:[facility] Appointment Type:INF Injection - Procrit Appointment Date:01/24/2022 02:30:00 PM Scheduled Provider: Location:[facility] Appointment Type:INF Labwork Appointment Date:02/13/2022 02:30:00 PM Scheduled Provider: Location:[facility] Appointment Type:CV OV Future Scheduled Tests Radiology* CT Abdomen and Pelvis w/ contrast 02/21/21 [facility] evaluation + Plan note Future Appointments Appointment Date:02/13/2022 02:30:00 PM Scheduled Provider: Location:[facility] Appointment Type:CV OV Future Scheduled Tests Radiology* CT Abdomen and Pelvis w/ contrast 02/21/21 [facility] evaluation + Plan note Future Appointments Appointment Date:06/29/2024 01:30:00 PM Scheduled Provider:CHRISTAL LIMA Location:[facility] Appointment Type:Telephone Appointment Date:07/01/2024 10:15:00 AM Scheduled Provider: Location:[facility] Appointment Type:yyCT ABD and Pelvis w/o Contrast Appointment Date:07/01/2024 10:30:00 AM Scheduled Provider: Location:[facility] Appointment Type:yyCT Chest w/o Contrast Appointment Date:07/06/2024 10:15:00 AM Scheduled Provider:ROSEANNE BACA MD Location:[facility] Appointment Type:[facility] OV Follow Up w/ Active Treatme Future Scheduled Tests Laboratory* Cortisol Level 07/08/24 * Ferritin 06/17/24 * Lactate Dehydrogenase 07/08/24 * Thyroid Stimulating Hormone 07/08/24 * Complete Blood Count 07/08/24 * Iron Studies 06/17/24 * Complete Metabolic Panel 07/08/24 Radiology* CT Thorax w/o Contrast 07/01/24 * CT Abdomen and Pelvis w/o contrast 07/01/24 [facility] evaluation + Plan note Future Appointments Appointment Date:07/27/2024 10:00:00 AM Scheduled Provider: Location:[facility] Appointment Type:INF/OSP Labwork Appointment Date:07/27/2024 10:40:00 AM Scheduled Provider:ROSEANNE BACA MD Location:[facility] Appointment Type:[facility] OV Follow Up w/ Active Treatme Appointment Date:07/27/2024 11:15:00 AM Scheduled Provider: Location:[facility] Appointment Type:INF Chemo: Infusion 120 min (2 hours) Appointment Date:07/27/2024 02:10:00 PM Scheduled Provider:SANCHEZ PEACOCK MD Location:UROLOGY Appointment Type:URO SUPERVISOR SPECIAL EDUCATION Future Scheduled Tests Laboratory* Cortisol Level 07/27/24 * Lactate Dehydrogenase 07/27/24 * Thyroid Stimulating Hormone 07/27/24 * Complete Blood Count 07/27/24 * Complete Metabolic Panel 07/27/24 [facility] Evaluation + Plan note Future Appointments Appointment Date:08/17/2024 09:15:00 AM Scheduled Provider: Location:[facility] Appointment Type:INF/OSP Labwork Appointment Date:08/17/2024 09:45:00 AM Scheduled Provider:CHRISTAL LIMA Location:[facility] Appointment Type:[facility] OV Follow Up w/CORRECTIONAL MAINTENANCE TECHNICIAN Active Treat Appointment Date:08/17/2024 10:15:00 AM Scheduled Provider: Location:[facility] Appointment Type:INF Chemo: Infusion 120 min (2 hours) Future Scheduled Tests Laboratory* Cortisol Level 08/17/24 * Basic Metabolic Panel 07/27/24 * Fibrinogen 07/27/24 * Lactate Dehydrogenase 08/17/24 * Platelet Count 07/27/24 * Thyroid Stimulating Hormone 08/17/24 * APTT 07/27/24 * Complete Blood Count 08/17/24 * Complete Blood Count 07/27/24 * Prothrombin Time - Panel 07/27/24 * Complete Metabolic Panel 08/17/24 [facility] evaluation + Plan note Future Appointments Appointment Date:09/07/2024 09:00:00 AM Scheduled Provider: Location:[facility] Appointment Type:INF/OSP Labwork Appointment Date:09/07/2024 09:45:00 AM Scheduled Provider:ROSEANNE BACA MD Location:[facility] Appointment Type:[facility] OV Follow Up w/ Active Treatme Appointment Date:09/07/2024 10:15:00 AM Scheduled Provider: Location:[facility] Appointment Type:INF Chemo: Infusion 120 min (2 hours) Future Scheduled Tests Laboratory* Cortisol Level 09/07/24 * Basic Metabolic Panel 07/27/24 * Fibrinogen 07/27/24 * Lactate Dehydrogenase 09/07/24 * Platelet Count 07/27/24 * Thyroid Stimulating Hormone 09/07/24 * APTT 07/27/24 * Complete Blood Count 09/07/24 * Complete Blood Count 07/27/24 * Prothrombin Time - Panel 07/27/24 * Complete Metabolic Panel 09/07/24 [facility] Evaluation + Plan note Future Appointments Appointment Date:09/14/2024 01:00:00 PM Scheduled Provider: Location:[facility] Appointment Type:yyCT Abdomen and Pelvis w/ Contrast 3 Appointment Date:09/14/2024 01:30:00 PM Scheduled Provider: Location:[facility] Appointment Type:yyCT Chest w/ Contrast 3 Appointment Date:09/28/2024 09:15:00 AM Scheduled Provider: Location:[facility] Appointment Type:INF/OSP Labwork Appointment Date:09/28/2024 10:00:00 AM Scheduled Provider:ROSEANNE BACA MD Location:[facility] Appointment Type:[facility] OV Follow Up w/ Active Treatme Appointment Date:09/28/2024 10:30:00 AM Scheduled Provider: Location:[facility] Appointment Type:INF Chemo: Infusion 120 min (2 hours) Future Scheduled Tests Laboratory* Basic Metabolic Panel 07/27/24 * Fibrinogen 07/27/24 * Platelet Count 07/27/24 * APTT 07/27/24 * Complete Blood Count 07/27/24 * Complete Blood Count 09/28/24 * Prothrombin Time - Panel 07/27/24 * Complete Metabolic Panel 09/28/24 Radiology* CT Thorax w/ Contrast 09/14/24 * CT Abdomen and Pelvis w/ contrast 09/14/24 [facility] Evaluation + Plan note Future Appointments Appointment Date:09/28/2024 09:15:00 AM Scheduled Provider: Location:[facility] Appointment Type:INF/OSP Labwork Appointment Date:09/28/2024 10:00:00 AM Scheduled Provider:ROSEANNE BACA MD Location:[facility] Appointment Type:[facility] OV Follow Up w/ Active Treatme Appointment Date:09/28/2024 10:30:00 AM Scheduled Provider: Location:[facility] Appointment Type:INF Chemo: Infusion 120 min (2 hours) Future Scheduled Tests Laboratory* Basic Metabolic Panel 07/27/24 * Fibrinogen 07/27/24 * Platelet Count 07/27/24 * APTT 07/27/24 * Complete Blood Count 07/27/24 * Complete Blood Count 09/28/24 * Prothrombin Time - Panel 07/27/24 * Complete Metabolic Panel 09/28/24 [facility] Evaluation + Plan note Future Appointments Appointment Date:10/19/2024 09:00:00 AM Scheduled Provider: Location:[facility] Appointment Type:INF/OSP Labwork Appointment Date:10/19/2024 09:45:00 AM Scheduled Provider:ROSEANNE BACA MD Location:[facility] Appointment Type:[facility] OV Follow Up w/Active Treatment Appointment Date:10/19/2024 10:15:00 AM Scheduled Provider: Location:[facility] Appointment Type:INF Chemo: Infusion 120 min (2 hours) Future Scheduled Tests Laboratory* Cortisol Level 10/19/24 * Basic Metabolic Panel 07/27/24 * Fibrinogen 07/27/24 * Platelet Count 07/27/24 * Thyroid Stimulating Hormone 10/19/24 * APTT 07/27/24 * Complete Blood Count 07/27/24 * Complete Blood Count 10/19/24 * Prothrombin Time - Panel 07/27/24 * Complete Metabolic Panel 10/19/24 Radiology* CT Enterography ABD/PELVIS w/Contrast 09/28/24 [facility] Evaluation note* Diagnosis Elevated serum creatinine- Primary Other nonspecific findings on examination of blood 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) [facility] Diagnosis Malignant tumor of renal pelvis, 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) Encounter for follow-up surveillance of 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) Malignant neoplasm of renal pelvis documented in this encounter [facility] note* Diagnosis Malignant neoplasm of urinary bladder, unspecified site (HCC)- Primary Neoplasm of bladder Neoplasm of unspecified nature of bladder 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) Stage 3b chronic kidney disease (HCC) Microscopic hematuria Neoplasm of bladder Neoplasm of unspecified nature of bladder [facility] Hypertension, unspecified type- Primary Neoplasm of bladder Neoplasm of unspecified nature of bladder documented in this encounter [facility] note* Diagnosis Asymptomatic microscopic hematuria- Primary Neoplasm of bladder Neoplasm of unspecified nature of bladder Malignant neoplasm of urinary bladder, unspecified site (HCC) 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) Stage 3b chronic kidney disease (HCC) Microscopic hematuria Neoplasm of bladder Neoplasm of unspecified nature of bladder [facility] Diagnosis Pre-op evaluation- Primary Preoperative examination, unspecified Neoplasm of bladder Neoplasm of unspecified nature of bladder Primary hypertension Unspecified essential hypertension Gastroesophageal reflux disease, unspecified whether esophagitis present Stage 3b chronic kidney disease (HCC) Type 2 diabetes mellitus with other specified complication, with long-term current use of insulin (HCC) Acute on chronic diastolic congestive heart failure (HCC) Acute on chronic diastolic heart failure Anemia, unspecified type Neoplasm of bladder Neoplasm of unspecified nature of bladder documented in this encounter [facility] note* Diagnosis Malignant neoplasm of urinary bladder, unspecified site (HCC)- Primary documented in this encounter [facility] noteNo assessment information [facility]WSt[facility] Work Phone: Evaluation note* Diagnosis Onset Date Resolution Status Kidney failure [facility] Work Phone: evaluation note* Diagnosis Onset Date Resolution Status Kidney failure acute Health care maintenance acut e Bilateral lower extremity edema chronic CKD (chronic kidney disease) stage 5, GFR less than 15 ml/min chronic Hyperlipidemia chronic Hypertension chronic Osteoporosis chronic Type 2 diabetes mellitus [facility] onic [facility] Work Phone: Evaluation note* Diagnosis Onset Date Resolution Status Kidney failure acute [facility] care maintenance acut e Bilateral lower extremity edema chronic CKD (chronic kidney disease) stage 5, GFR less than 15 ml/min chronic Hyperlipidemia chronic Hypertension chronic Osteoporosis chronic Type 2 diabetes mellitus chr onic CKD (chronic kidney disease) stage 5, GFR less than 15 ml/min chronic CKD (chronic kidney disease) stage 5, GFR less than 15 ml/min [facility] Work Phone: Evaluation note* Diagnosis Onset Date Resolution Status Kidney failure acute Health care maintenance acut e Bilateral lower extremity edema chronic CKD (chronic kidney disease) stage 5, GFR less than 15 ml/min chronic Hyperlipidemia chronic Hypertension chronic Osteoporosis chronic Type 2 diabetes mellitus chr onic CKD (chronic kidney disease) stage 5, GFR less than 15 ml/min chronic CKD (chronic kidney disease) stage 5, GFR less than 15 ml/min chronic CKD (chronic kidney disease) stage 5, GFR less than 15 ml/min [facility] Work Phone: Evaluation note* Diagnosis Onset Date Resolution Status Kidney failure acute [facility] care maintenance acut e Bilateral lower extremity edema chronic CKD (chronic kidney disease) stage 5, GFR less than 15 ml/min chronic Hyperlipidemia chronic Hypertension chronic Osteoporosis chronic Type 2 diabetes mellitus chr onic CKD (chronic kidney disease) stage 5, GFR less than 15 ml/min chronic CKD (chronic kidney disease) stage 5, GFR less than 15 ml/min chronic CKD (chronic kidney disease) stage 5, GFR less than 15 ml/min chronic CKD (chronic kidney disease) stage 5, GFR less than 15 ml/min [facility] Work Phone: Evaluation note* Diagnosis Onset Date Resolution Status Kidney failure acute [facility] care maintenance acut e Bilateral lower extremity edema chronic CKD (chronic kidney disease) stage 5, GFR less than 15 ml/min chronic Hyperlipidemia chronic Hypertension chronic Osteoporosis chronic Type 2 diabetes mellitus chr onic CKD (chronic kidney disease) stage 5, GFR less than 15 ml/min chronic CKD (chronic kidney disease) stage 5, GFR less than 15 ml/min chronic CKD (chronic kidney disease) stage 5, GFR less than 15 ml/min chronic CKD (chronic kidney disease) stage 5, GFR less than 15 ml/min chronic CKD (chronic kidney disease) stage 5, GFR less than 15 ml/min [facility] Work Phone: Evaluation note* Diagnosis Gross hematuria- Primary Urothelial carcinoma of bladder (HCC) [facility] Malignant neoplasm of urinary bladder, unspecified site (HCC)- Primary Malignant neoplasm of overlapping sites of bladder (HCC) Malignant neoplasm of other specified sites of bladder [facility] Diagnosis Malignant neoplasm of urinary bladder, unspecified site (HCC)- Primary [facility] Diagnosis Onset Date Resolution Status H/O transurethral resection of bladder tumor (TURBT) acute Vertigo acute Cardiomyopathy chronic Hypertension chronic Hypothyroidism chronic Type 2 diabetes mellitus chr onic [facility] Work Phone: Evaluation note* Diagnosis Onset Date Resolution Status H/O transurethral resection of bladder tumor (TURBT) acute Vertigo acute Cardiomyopathy chronic Hypertension chronic Hypothyroidism chronic Type 2 diabetes mellitus chr onic Acute encephalopathy acute Acute UTI acute ESRD on dialysis acute Hypertensive emergency acute [facility] Work Phone: Evaluation note* Diagnosis Onset Date Resolution Status H/O transurethral resection of bladder tumor (TURBT) acute Vertigo acute Cardiomyopathy chronic Hypertension chronic Hypothyroidism chronic Type 2 diabetes mellitus chr onic Acute encephalopathy resolve d Acute UTI resolved Hypertensive emergency resol vishal [facility] Work Phone: Evaluation note* Diagnosis Onset Date Resolution Status H/O transurethral resection of bladder tumor (TURBT) acute Vertigo acute Cardiomyopathy chronic Hypertension chronic Hypothyroidism chronic Type 2 diabetes mellitus chr onic Acute encephalopathy resolve d Acute UTI resolved Hypertensive emergency resol vishal Abdominal pain acute Acute hyperkalemia acute Acute hyponatremia acute Anemia acute Kidney failure acute Metastatic renal cell carcinoma acute Nausea acute Hypertension chronic [facility] Work Phone: Evaluation note* Diagnosis Encephalopathy- Primary Encephalopathy, unspecified Mass of duodenum Other specified disorder of stomach and duodenum Submucosal neoplasm of duodenum Pancreatic cyst Cyst and pseudocyst of pancreas Electrolyte disorder (K, Cl, or Na) Electrolyte and fluid disorders not elsewhere classified Encephalopathy Encephalopathy, unspecified ESRD (end stage renal disease) on dialysis End stage renal disease Anemia (Low HGB) Anemia, unspecified ESRD (end stage renal disease) on dialysis End stage renal disease Electrolyte disorder (K, Cl, or Na) Electrolyte and fluid disorders not elsewhere classified Thrombocytopenia (Low Platelets) Thrombocytopenia, unspecified documented in this encounter [facility] Author Anastacia Selby [facility] July 16, 2023 2:52am Note Date/Time July 16, 2023 1:2 9am [facility] Medical Records Department [facility] [place] [address] H&P Exam - Hospitalist 07/16/23 0129 MR#: [id number] Acct: [id number] Name: LAVINIA DURAND Rep #:[id number] : 1940 82 From: Anastacia Selby MD PCP: Dr. Osmani Morgan MD Status:A DM IN Location: ICU CVICU20 2-1 HPI - General General Date of Admission: 07/16/23 Date of Service: 07/16/23 Chief Complaint: Confusion, increased urinary frequency. 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 Workup in the ED included Tmax 99.3 initially with most recent repeat T98.4, heart rate 100 initially with most recent repeat 88, BP initially 235/92 with most recent repeat 197/77, respiratory rate 21, 96% on room air, CBC with WBC 15, hemoglobin 12.2, platelet 175 with left shift and lymphopenia, CMP with BUN/creatinine 31/4.92, glucose 186, troponin initial 59, urinalysis noted to becloudy, specific gravity 1.015, urine protein 100, urine glucose 100, urine ketones 15, urine occult blood 250, negative nitrite, leukocyte Estrace 500 withurine RBCs 25-50, urine WBCs 5-10 with 1+ urine bacteria, ethyl alcohol less than 3, urine culture pending per ED, blood culture x 2 pending per ED, SARS COVID/influenza/RSV PCR negative, chest x-ray with no acute cardiopulmonary findings, CT brain with no acute intracranial findings, EKG SR without acute evidence of ischemia. In the ED patient administered IV rocephin and placed on cardene drip. [facility] Medical History Anemia Arthritis Bilateral lower extremity edema Cancer Cardiomyopathy CKD (chronic kidney disease) stage 5, GFR less than 15 ml/min Gastric reflux Glaucoma Heart failure Heart murmur Hx of fracture of wrist Hyperlipidemia Hypertension Hypothyroidism Kidney failure Lumbar spinal stenosis Macular degeneration Mitral regurgitation Osteoporosis Rheumatoid arthritis Shortness of breath on exertion Sjogren syndrome with inflammatory arthritis Thyroid disease Type 2 diabetes mellitus Vertigo Home Medications ascorbic acid (vitamin C) 1,000 mg tablet,extended release (Vitamin C ER) 1,000 mg PO DAILY 06/13/22 [History Last Taken Unknown] bimatoprost 0.01 % eye drops (Lumigan) 1 drp EACH EYE QHS 06/13/22 [History Last Taken Unknown] carvedilol 12.5 mg tablet 12.5 mg PO BID 06/13/22 [History Last Taken 08/22/22 06:00] famotidine 40 mg tablet 40 mg PO DAILY 06/13/22 [History Last Taken Unknown] folic acid 1 mg tablet 1 mg PO DAILY 06/13/22 [History Last Taken Unknown] levothyroxine 25 mcg tablet 25 mcg PO DAILY 06/13/22 [History Last Taken 10/10/22] multivitamin 1 tab PO DAILY 06/13/22 [History Last Taken Unknown] Juxta Lite #2 ea 08/15/22 [Rx Last Taken Unknown] doxazosin 2 mg tablet (Cardura) 2 mg PO BID 3 months #180 tabs 08/15/22 [Rx Last Taken 08/22/22 06:00] furosemide 40 mg tablet (Lasix) 60 mg PO BID 08/15/22 [History Last Taken Unknown] icosapent ethyl 1 gram capsule (Vascepa) 2 g (2 x 1 gram) PO BID #180 caps 08/15/22 [Rx Last Taken Unknown] acetaminophen 325 mg capsule (Tylenol) 650 mg PO QHS 10/03/22 [History Last Taken Unknown] hydrocodone-acetaminophen 5-325mg 5mg-325mg 1 tab PO Q6H PRN pain 3 days #12 tabs 10/10/22 [Rx Last Taken Unknown] lidocaine 5 % topical patch patch topical 01/30/23 [History Last Taken Unknown] amlodipine 5 mg tablet 5 mg PO BID 3 months #180 tabs 06/05/23 [Rx Last Taken Unknown] hydralazine 50 mg tablet 50 mg PO .QID 3 months #360 tabs 06/05/23 [Rx Last Taken Unknown] gabapentin 100 mg capsule 200 mg (2 x 100 mg) PO DAILY PRN Neuropathy 3 months #90 caps 06/27/23 [Rx Last Taken Unknown] nifedipine 30 mg tablet,extended release 24 hr 30 mg PO BID 06/30/23 [History Last Taken Unknown] pantoprazole 40 mg tablet,delayed release 40 mg PO PRN Indigestion 06/30/23 [History Last Taken Unknown] Allergy/AdvReac Type Severity Reaction Status Date / Time adalimumab [From Humira] Allergy Hives Verified 06/05/23 13:37 Family History Mother Heart disease Hypertension Osteoporosis Father CVA (cerebral vascular accident) Hypertension Surgical History H/O transurethral resection of bladder tumor (TURBT) History of bladder surgery History of nephrectomy Hx of colonoscopy S/P partial hysterectomy S/P total knee arthroplasty S/P vein stripping Social History household members: family Smoking Status: Never smoker alcohol intake: never substance use type: does not use ROS Review of Systems ROS Unobtainable: due to encephalopathy Vital Signs Vital Signs Vital Signs: 07/15/23 22:44 07/15/23 22:48 07/15/23 22:55 Temperature 99.3 F H 99.3 F H 99.3 F H Temperature Source Temporal Temporal Temporal Pulse Rate 100 100 97 Respiratory Rate 21 H 21 H 26 H Blood Pressure 235/92 H 235/92 H 221/87 H Blood Pressure Mean 139 139 131 Pulse Ox 98 98 97 Oxygen Delivery Method Room Air Room Air Room Air 07/15/23 23:39 07/15/23 23:55 07/16/23 00:00 Temperature 99.3 F H 98.5 F 98.4 F Temperature Source Temporal Oral Temporal Pulse Rate 95 96 96 Respiratory Rate 25 H 25 H 20 H Blood Pressure 230/94 H 222/84 H 218/85 H Blood Pressure Mean 139 130 129 Pulse Ox 97 97 97 Oxygen Delivery Method Room Air Room Air 07/16/23 00:42 07/16/23 01:00 Temperature 98.4 F Temperature Source Temporal Pulse Rate 95 88 Respiratory Rate 19 H 21 H Blood Pressure 211/83 H 197/77 H Blood Pressure Mean 125 117 Pulse Ox 97 96 Oxygen Delivery Method Room Air Weight Weight: 110 lb 3.698 oz Body Mass Index (BMI) 21.5 Physical Exam Narrative Physical Examination: General: Awakens to stimuli, not extremely alert, able to answer some questions but very lethargic and falls back asleep, seated upright in the ED bed, fatigued, ill-appearing. Skin: Normal color, normal turgor, no icterus, no cyanosis except occasional staged ecchymoses. HEENT: AT/NC, EOMI, PERRLA, dry MM, no carotid bruits or JVD noted. Lungs: Diminished, greater bases, mildly increased respiratory rate but no distress evident, no rales, ronchi or wheezing. Heart: Currently regular rate and rhythm; no gallop, rub audible, + SM. Abdomen: Soft, NTTP, ND, mildly hyperactive BS, no appreciated HSM. Extremities: No cyanosis, no clubbing, no marked peripheral edema, left upper extremity with + AVF thrill. Neurological: Awakens to stimuli, not extremely alert, able to answer some questions but very lethargic and falls back asleep, seated upright in the ED bed, fatigued, ill-appearing, cognitive function not baseline intact, pupils equally reactive to light and accommodation, cranial nerves grossly appear normal but difficult evaluation given encephalopathy, moving all 4 extremities, no focal deficits but difficult exam given encephalopathy, strength severely globally decreased. Psychiatric: Affect appears flat, lethargic, no acute evidence of depressive or anxiety feelings. Results Lab / Micro Data 07/15/23 23:18 07/15/23 23:18 Labs: Laboratory Results - last 24 hr 07/15/23 22:51: POC Glucose 196 H 07/15/23 23:18: WBC 15.0 H, RBC 4.28, Hgb 12.2, Hct 39.7, MCV 92.8, MCH 28.5, MCHC 30.7 L, RDW Std Deviation 60.3 H, RDW Coeff of Wiliam 18.0 H, Plt Count 175, MPV 10.8, Immature Gran % (Auto) 0.900, Neut % (Auto) 90.4 H, Lymph % (Auto) 5.3L, [place] % (Auto) 3.1, Eos % (Auto) 0.1, Baso % (Auto) 0.2, Absolute Neuts (auto)13.6 H, Absolute Lymphs (auto) 0.79 L, Nucleated RBC % 0, Sodium 137, Potassium 4.9, Chloride 102, Carbon Dioxide 28.0, Anion Gap 7, BUN 31 H, Creatinine 4.92 H, Estim Creat Clear Calc 6.22, Est GFR (MDRD) Af Amer 11 L, Est GFR (MDRD) Non-Af 9 L, BUN/Creatinine Ratio 6.3 L, Glucose 186 H, Calcium 9.6, Total Bilirubin 0.30, AST 22, ALT 13, Alkaline Phosphatase 84, Troponin I High Sens 59 H, Total Protein 6.3 L, Albumin 2.8 L, Globulin 3.5, Albumin/Globulin Ratio 0.8 L, Ethyl Alcohol < 3.0 07/16/23 00:10: Urine Color Yellow, Urine Clarity Cloudy, Urine pH 9.0, Ur Specific [place] 1.015, Urine Protein 100 H, Urine Glucose (UA) 100 H, Urine Ketones 15 H, Urine Occult Blood 250 H, Urine Nitrite Negative, Urine Bilirubin Negative, Urine Urobilinogen Normal, Ur Leukocyte Esterase 500 H, Urine RBC 25-50 SEEN, Urine WBC 5-10 SEEN, Ur Squamous Epith Cells 5-10 SEEN, Urine Bacteria 1+, Urine Mucus 0 SEEN Micro: Microbiology 07/16/23 00:16 Mucosa - Nose SARS-CoV-2, Influenza & RSV (PCR) - Final Rhythm Strip Rhythm Strip: Sinus Rhythm Rate: 95 Ectopy: None Imaging Radiology Impression Brain CT 07/15/23 23:02 IMPRESSION: No acute intracranial abnormality. Electronically Signed: Edmar Sams DO at 0:39 EDT , Chest X-Ray 07/15/23 23:47 IMPRESSION: No evidence of acute cardiopulmonary disease. 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 #1. Acute Encephalopathy, multifactorial secondary to Acute Complicated UrinaryTract Infection and #2 as noted: Will admit to ICU, UA upon ED evaluation remarkable, pending UCx, continue IVFs, monitor I/Os, continue IV Rocephin w/ transition as able pending sensitivities and speciation. Given ICU admission perprotocol will request ICU consultation. Bld cx x 2 obtained in the ED. PT/OT/CM consulted for discharge planning. #2. Acute hypertensive emergency with associated indeterminate cardiac enzyme, possibly related with underlying renal disease: EKG in ED w/ SR without acute evidence of ischemia, CXR w/ no acute cardiopulmonary findings, initial trop 53. Will maintain on Cardene drip until BP improves, will maintain on a monitored bed to be cautious, will continue to obtain serial cardiac enzymes and EKGs. Magnesium level requested. If enzymes rise notably will involve cardiology and request echocardiogram however at this time could be chronically elevated at this level given underlying renal disease. Will additionally continue patient underlying chronic home oral regimen. If BP does not improve low threshold to involve cardiology. ECHO requested. #3. HF Unclear type: No echocardiogram noted in system, unclear if preserved EFor not, will judiciously hydrate given unclear history, given hypertensive emergency as noted placed on Cardene drip, will continue concurrently patient home regimen including Coreg, Lasix, not on FLORENTINO or/ARB given likely underlying renal disease, also per current list does not appear to be on statin therapy. ECHO requested. #4. Chronic Kidney Disease Stage V/ESRD: Admission BUN/Cr 31/4.92, baseline renal function noted most recently 11/19/2022 creatinine 5.90, repeat BMP in AM, will consult Nephrology to continue her routine HD regimen. #5. Chronic anemia/AOCD: Admission hemoglobin 12.2, previous baseline had been primarily 8-9, will judiciously hydrate and repeat CBC in a.m. as certainly could be falsely elevated but last lab was remote and noted to be 11/05/2022. #6. Macular degeneration/glaucoma: Complicates presentation, maintain on fall precautions, continue patient eyedrop regimen. #7. Hypothyroidism: We will continue patient on levothyroxine regimen. #8. Bladder cancer: Status post TURBT, following with Dr. Soliman, unclear exactstaging, encourage continued outpatient follow-up as previously arranged. #9. Rheumatoid arthritis/Sjogren's syndrome with inflammatory arthritis: Per current list does not appear to be on chronic regimen, encourage continued outpatient follow-up with rheumatology as previously arranged. #10. GERD: We will continue patient home PPI. #11. DVT prophylaxis: Heparin. #12. CODE status: Family had left just prior to evaluation and ED noted their intention to immediately sleep given daytime engagements. Currently will remain unverified Full Code status, but will need to be re-discussed with family 07/16/23 to verify correct code status. Charges/Coding Visit Charges Inpatient E&M: 98791 Init Hosp L3 07/16/23 0252 <Electronically signed by Anastacia Selby MD> Cosigner Signature (if applicable): CC: Dr. Anastacia Selby MD; Dr. Osmani Morgan MD~ Signed [facility] Work Phone: Hospital course Narrative No data available for this section [facility] Discharge instructions No data available for this section [facility] Progress note No data available for this section [facility] Reason for referral (narrative)* Outpatient Procedure (Routine) - Authorized Specialty Diagnoses / Procedures Referred By Contac t Referred To Contact [facility] Diagnoses Hypertension, unspecified type Procedures ECG COMPLETE ECG ROUTINE ECG W/LEAST 12 LDS W/I&R Efrain Cooper MD [address] [place] [address] [facility] [place] [address] [place] [id number] Referral ID Status Reason Start Date Expiration Date Visits Requested Visits Authorized [id number] Authorized Auto-Generat ed Referral 11/06/2021 11/06/2022 1 1 [facility] for referral (narrative)No reason for referral [facility] Work Phone: Summary Purpose Family History Relationship Condition Age at Onset Recorded Date/T misty mother Cardiac disease Unknown Hypertension Unknown Relationship Condition Age at Onset Recorded Date/T misty mother Cardiac disease Unknown Hypertension Unknown Osteoporosis Unknown father Cerebrovascular accident (CVA) Unknown Advance Directives Documents on File Type Date Recorded Patient Assistant Auto Center Manager Expl anation Advance Directive(s) 02/26/2021 9:34 AM Advance Directive(s) 10/25/2020 7:35 AM Latest Code Status on File Code Status Date Activated Date Inactivated Comments Full Code 11/09/2020 12:50 PM 03/12/2021 10:46 AM Documents on File Type Date Recorded Patient Assistant Auto Center Manager Expl anation Advance Directive(s) 02/26/2021 9:34 AM Advance Directive(s) 10/25/2020 7:35 AM Latest Code Status on File Code Status Date Activated Date Inactivated Comments Full Code 11/09/2020 12:50 PM 03/12/2021 10:46 AM Documents on File Type Date Recorded Patient Assistant Auto Center Manager Expl anation Advance Directive(s) 11/06/2021 5:16 PM Advance Directive(s) 02/26/2021 9:34 AM Advance Directive(s) 10/25/2020 7:35 AM Advance Directive Response Recorded Date/ Time Living Will Yes August 15, 2022 10:22am Power of Computer Science Instructor Yes August 15 10:22am Advance Directive Response Recorded Date/ Time Name of Medical Power of Computer Science Instructor SON/DIYA August 15, 2022 10:22am Name of Medical Power of Computer Science Instructor October 03, 2022 10:11am Living Will Yes October 03, 2022 1 0:11am Power of Computer Science Instructor Yes October 03, 2022 10:11am Latest Code Status on File Code Status Date Activated Date Inactivated Comments Full Code 11/09/2020 12:50 PM 03/12/2021 10:46 AM Latest Code Status on File Code Status Date Activated Date Inactivated Comments Full Code 11/09/2020 12:50 PM 03/12/2021 10:46 AM Advance Directive Response Recorded Date/ Time Living Will Yes October 03, 2022 9 :11am Power of Computer Science Instructor Yes October 03, 2022 9:11am Advance Directive Response Recorded Date/ Time Name of Medical Power of Computer Science Instructor Diya Durand July 15, 2023 10:50pm Living Will Yes July 15, 2023 10:50pm Power of Computer Science Instructor Yes July 14 10:50pm Advance Directive Response Recorded Date/ Time Name of Medical Power of Computer Science Instructor Diya Durand July 15, 2023 10:50pm Living Will No July 16, 2023 2:42am Power of Computer Science Instructor No July 15 2:42am Advance Directive Response Recorded Date/ Time Name of Medical Power of Computer Science Instructor Diya Durand July 15, 2023 10:50pm Name of Medical Power of Computer Science Instructor DIYA August 04, 2023 12:02pm Living Will Yes August 04, 2023 12:02pm Power of Computer Science Instructor Yes August 03 12:02pm Documents on File Type Date Recorded Patient Assistant Auto Center Manager Expl anation Advance Directives/Living Will 09/11/2023 3:37 PM HCPOA Date Activated Date Inactivated Comments 09/11/2023 2:00 PM I have discuss ed Lavinia Durand's Do Not Resuscitate wishes with her daughter. They are in agreement with this code status. Date Activated Date Inactivated Comments 09/10/2023 7:57 PM 09/11/2023 2:00 PM Advance Directive Response Recorded Date/ Time Living Will No May 15 6:51am Do you have a Healthcare Power of Computer Science Instructor? No May 15, 2024 6:51am Medications Administered Section Inactive Administered Medications - up to 3 most recent administrations Medication Order MAR Action Action Date Dose Rate Site lidocaine urojet 2 % 11 mL topical gel (XYLOCAINE, GLYDO) 11 mL, URETHRAL, ONCE (UP TO 30 DAYS AMB), 1 dose, On 07/11/21 at 2000, FOR EXTERNAL USE ONLY APPLY TO: Urethra Given 07/12/2021 1:53 PM EDT 11 mL Other Inactive Administered Medications - up to 3 most recent administrations Medication Order MAR Action Action Date Dose Rate Site lidocaine urojet 2 % 11 mL topical gel (XYLOCAINE, GLYDO) 11 mL, URETHRAL, ONCE (UP TO 30 DAYS AMB), 1 dose, On Jocelyn 11/01/21 at 0000, FOR EXTERNAL USE ONLY Given 11/01/2021 1:45 PM EDT 11 mL Reason for Referral Specialty Diagnoses / Procedures Referred By Contac t Referred To Contact Social Work Diagnoses Mass of duodenum Encephalopathy ESRD (end stage renal disease) on dialysis Marvin Bee MD [address] [place] [address] Referral ID Status Reason Start Date Expiration Date V isits Requested Visits Authorized [id number] New Request 09/18/2023 10/12/2024 1 1 Specialty Diagnoses / Procedures Referred By Contac t Referred To Contact Procedures HEMODIALYSIS Anastacio Rausch MD [address] [place] [address] Referral ID Status Reason Start Date Expiration Date V isits Requested Visits Authorized [id number] New Request 09/16/2023 10/10/2024 1 1 Specialty Diagnoses / Procedures Referred By Contac t Referred To Contact [address] [place] [address] Referral ID Status Reason Start Date Expiration Date Visits Re quested Visits Authorized Referral ID Status Reason Start Date Expiration Date V isits Requested Visits Authorized [id number] New Request 09/12/2023 10/06/2024 1 1 Referral ID Status Reason Start Date Expiration Date V isits Requested Visits Authorized [id number] New Request 09/11/2023 10/05/2024 1 1 Specialty Diagnoses / Procedures Referred By Contac t Referred To Contact Interventional Radiology [address] [place] [address] Specialty Diagnoses / Procedures Referred By Contac t Referred To Contact MR IMAGING Diagnoses Malignant neoplasm of urinary bladder, unspecified site (HCC) Procedures MRI PELVIS URO WO/W IVCON MRI PELVIS W/O & W/CONTRAST MATERIAL Abiel Smith MD [address] [place] [address] Mr Imaging [facility] Referral ID Status Reason Start Date Expiration Date Visits Requested Visits Authorized [id number] Authorized Auto-Generat ed Referral 3 05/15/2024 1 1 Specialty Diagnoses / Procedures Referred By Contac t Referred To Contact MR IMAGING Diagnoses Malignant neoplasm of urinary bladder, unspecified site (HCC) Procedures MRI ABDOMEN URO WO/W IVCON MRI ABDOMEN W/O & W/CONTRAST MATERIAL Abiel Smith MD [address] [place] [address] [place] [address] Referral ID Status Reason Start Date Expiration Date Visits Requested Visits Authorized [id number] Authorized Auto-Generat ed Referral 3 05/15/2024 1 1 Specialty Diagnoses / Procedures Referred By Contac t Referred To Contact CT IMAGING Diagnoses Malignant neoplasm of urinary bladder, unspecified site (HCC) Malignant neoplasm of overlapping sites of bladder (HCC) Procedures CT UROGRAM WO/W IVCON CT ABD & PELVIS W/WO CONTRST 1+ BODY Mariana Sommer PA [address] [place] [address] Ct Imaging [place] [address] Referral ID Status Reason Start Date Expiration Date Visits Requested Visits Authorized [id number] Pending Review Auto-Generat ed Referral 3 05/06/2024 1 1 Specialty Diagnoses / Procedures Referred By Contac t Referred To Contact Cardiology Diagnoses Neoplasm of bladder Malignant neoplasm of urinary bladder, unspecified site (HCC) 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) Stage 3b chronic kidney disease (HCC) Microscopic hematuria Procedures CONSULT TO CARDIOLOGY OFFICE/OUTPATIENT NEW HIGH MDM 60-74 MINUTES Yee Alston, 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 [address] [place] [address] Referral ID Status Reason Start Date Expiration Date Visits Requested Visits Authorized [id number] Authorized PCP Requested Referral 11/05/2021 11/05/2022 1 1 Specialty Diagnoses / Procedures Referred By Contac t Referred To Contact Diagnoses Neoplasm of bladder Malignant neoplasm of urinary bladder, unspecified site (HCC) 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) Stage 3b chronic kidney disease (HCC) Microscopic hematuria Procedures REFER TO PACC - PRE ANESTHESIA CONSULTATION CLINIC OFFICE/OUTPATIENT NEW HIGH MDM 60-74 MINUTES Yee Alston, 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[employer] 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 [address] [place] [address] Referral ID Status Reason Start Date Expiration Date Visits Requested Visits Authorized [id number] Authorized PCP Requested Referral 11/05/2021 11/05/2022 1 1 Specialty Diagnoses / Procedures Referred By Val t Referred To Contact CT IMAGING Diagnoses Neoplasm of bladder Malignant neoplasm of urinary bladder, unspecified site (HCC) 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) Stage 3b chronic kidney disease (HCC) Microscopic hematuria Procedures CT UROGRAM WO/W IVCON CT ABD & PELVIS W/O CONTRST 1+ BODY REGNS Yee Alston, 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 [address] [place] [address] Ct Imaging Referral ID Status Reason Start Date Expiration Date Visits Requested Visits Authorized [id number] Pending Review Auto-Generat ed Referral 11/05/2021 12/05/2022 1 1 Specialty Diagnoses / Procedures Referred By Val t Referred To Contact MR IMAGING Diagnoses Malignant tumor of renal pelvis, 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) Encounter for follow-up surveillance of 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) Procedures MRI PELVIS URO WO/W IVCON MRI PELVIS W/WO CONTRAST Yee Alston, 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F[employer] 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 [address] [place] [address] Mr Imaging Referral ID Status Reason Start Date Expiration Date V isits Requested Visits Authorized [id number] Closed Auto-Generate d Referral 02/15/2021 03/17/2022 1 1 Specialty Diagnoses / Procedures Referred By Val t Referred To Contact MR IMAGING Diagnoses Malignant tumor of renal pelvis, 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) Encounter for follow-up surveillance of 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) Procedures MRI ABDOMEN URO WO/W IVCON MRI,ABDOMEN,W&WO CONTRS Yee Alston, 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F[employer] 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 [address] [place] [address] Mr Imaging Referral ID Status Reason Start Date Expiration Date V isits Requested Visits Authorized [id number] Closed Auto-Generate d Referral 02/15/2021 03/17/2022 1 1 Health Concerns Infection Onset Date Last Indicated Resolved Time COVID-19 Rule-Out 11/23/2021 11/23/2021 Infection Onset Date Last Indicated Resolved Time COVID-19 Rule-Out 11/23/2021 11/23/2021 11/23/2021 10:27 PM EDT Chief Complaint and Reason for Visit Chief Complaint peripheral lab draw for possible Retacrit Chief Complaint peripheral lab draw for possible Retacrit peripheral lab draw for possible Retacrit Chief Complaint peripheral lab draw for possible Retacrit peripheral lab draw for possible Retacrit peripheral lab draw for possible Retacrit Chief Complaint peripheral lab draw for possible Retacrit peripheral lab draw for possible Retacrit peripheral lab draw for possible Retacrit retacrit retacrit peripheral lab draw Chief Complaint peripheral lab draw for possible Retacrit peripheral lab draw for possible Retacrit peripheral lab draw for possible Retacrit retacrit retacrit peripheral lab draw retacrit FISTULA retacrit Reason for Visit Kidney failure Chief Complaint peripheral lab draw for possible Retacrit peripheral lab draw for possible Retacrit peripheral lab draw for possible Retacrit retacrit retacrit peripheral lab draw retacrit FISTULA retacrit peripheral lab draw SUPERVISOR SPECIAL EDUCATION, EST. CARE Reason for Visit Kidney failure Health care maintenance Bilateral lower extremity edema CKD (chronic kidney disease) stage 5, GFR less than 15 ml/min Hyperlipidemia Hypertension Osteoporosis Type 2 diabetes mellitus Chief Complaint peripheral lab draw for possible Retacrit peripheral lab draw for possible Retacrit peripheral lab draw for possible Retacrit retacrit retacrit peripheral lab draw retacrit FISTULA retacrit peripheral lab draw SUPERVISOR SPECIAL EDUCATION, EST. CARE Labs w/IV start Reason for Visit Kidney failure Health care maintenance Bilateral lower extremity edema CKD (chronic kidney disease) stage 5, GFR less than 15 ml/min Hyperlipidemia Hypertension Osteoporosis Type 2 diabetes mellitus Chief Complaint peripheral lab draw for possible Retacrit peripheral lab draw for possible Retacrit peripheral lab draw for possible Retacrit retacrit retacrit peripheral lab draw retacrit FISTULA retacrit peripheral lab draw SUPERVISOR SPECIAL EDUCATION, EST. CARE PREOP Labs w/IV start lt upper arm av fistula creation lt upper arm av fistula creation 1WK F/U Fistula & SR Labs w/IV start GARY TRANSPOSITION AV FISTULA GARY TRANSPOSITION AV FISTULA Reason for Visit Kidney failure Health care maintenance Bilateral lower extremity edema CKD (chronic kidney disease) stage 5, GFR less than 15 ml/min Hyperlipidemia Hypertension Osteoporosis Type 2 diabetes mellitus CKD (chronic kidney disease) stage 5, GFR less than 15 ml/min CKD (chronic kidney disease) stage 5, GFR less than 15 ml/min Chief Complaint peripheral lab draw for possible Retacrit peripheral lab draw for possible Retacrit retacrit retacrit peripheral lab draw retacrit FISTULA retacrit peripheral lab draw SUPERVISOR SPECIAL EDUCATION, EST. CARE PREOP Labs w/IV start lt upper arm av fistula creation lt upper arm av fistula creation 1WK F/U Fistula & SR Labs w/IV start GARY TRANSPOSITION AV FISTULA GARY TRANSPOSITION AV FISTULA Labs w/IV start Reason for Visit Kidney failure Health care maintenance Bilateral lower extremity edema CKD (chronic kidney disease) stage 5, GFR less than 15 ml/min Hyperlipidemia Hypertension Osteoporosis Type 2 diabetes mellitus CKD (chronic kidney disease) stage 5, GFR less than 15 ml/min CKD (chronic kidney disease) stage 5, GFR less than 15 ml/min Chief Complaint peripheral lab draw for possible Retacrit retacrit retacrit peripheral lab draw retacrit FISTULA retacrit peripheral lab draw SUPERVISOR SPECIAL EDUCATION, EST. CARE PREOP Labs w/IV start lt upper arm av fistula creation lt upper arm av fistula creation 1WK F/U Fistula & SR Labs w/IV start GARY TRANSPOSITION AV FISTULA GARY TRANSPOSITION AV FISTULA Labs w/IV start Labs w/IV start GARY TRANSPOSITION AV FISTULA 15 Labs w/IV start Labs w/IV start Reason for Visit Kidney failure Health care maintenance Bilateral lower extremity edema CKD (chronic kidney disease) stage 5, GFR less than 15 ml/min Hyperlipidemia Hypertension Osteoporosis Type 2 diabetes mellitus CKD (chronic kidney disease) stage 5, GFR less than 15 ml/min CKD (chronic kidney disease) stage 5, GFR less than 15 ml/min CKD (chronic kidney disease) stage 5, GFR less than 15 ml/min Chief Complaint retacrit retacrit peripheral lab draw retacrit FISTULA retacrit peripheral lab draw SUPERVISOR SPECIAL EDUCATION, EST. CARE PREOP Labs w/IV start lt upper arm av fistula creation lt upper arm av fistula creation 1WK F/U Fistula & SR Labs w/IV start GARY TRANSPOSITION AV FISTULA GARY TRANSPOSITION AV FISTULA Labs w/IV start Labs w/IV start GARY TRANSPOSITION AV FISTULA 6/15 Labs w/IV start Labs w/IV start Chronic kidney disease, stage 5 FISTULA CHECK Labs w/IV start Reason for Visit Kidney failure Health care maintenance Bilateral lower extremity edema CKD (chronic kidney disease) stage 5, GFR less than 15 ml/min Hyperlipidemia Hypertension Osteoporosis Type 2 diabetes mellitus CKD (chronic kidney disease) stage 5, GFR less than 15 ml/min CKD (chronic kidney disease) stage 5, GFR less than 15 ml/min CKD (chronic kidney disease) stage 5, GFR less than 15 ml/min CKD (chronic kidney disease) stage 5, GFR less than 15 ml/min Chief Complaint retacrit peripheral lab draw retacrit FISTULA retacrit peripheral lab draw SUPERVISOR SPECIAL EDUCATION, EST. CARE PREOP Labs w/IV start lt upper arm av fistula creation lt upper arm av fistula creation 1WK F/U Fistula & SR Labs w/IV start GARY TRANSPOSITION AV FISTULA GARY TRANSPOSITION AV FISTULA Labs w/IV start Labs w/IV start GARY TRANSPOSITION AV FISTULA 15 Labs w/IV start Labs w/IV start Chronic kidney disease, stage 5 FISTULA CHECK Labs w/IV start Chronic kidney disease, stage 5 Labs w/IV start Reason for Visit Kidney failure Health care maintenance Bilateral lower extremity edema CKD (chronic kidney disease) stage 5, GFR less than 15 ml/min Hyperlipidemia Hypertension Osteoporosis Type 2 diabetes mellitus CKD (chronic kidney disease) stage 5, GFR less than 15 ml/min CKD (chronic kidney disease) stage 5, GFR less than 15 ml/min CKD (chronic kidney disease) stage 5, GFR less than 15 ml/min CKD (chronic kidney disease) stage 5, GFR less than 15 ml/min Chief Complaint peripheral lab draw retacrit FISTULA retacrit peripheral lab draw SUPERVISOR SPECIAL EDUCATION, EST. CARE PREOP Labs w/IV start lt upper arm av fistula creation lt upper arm av fistula creation 1WK F/U Fistula & SR Labs w/IV start GARY TRANSPOSITION AV FISTULA GARY TRANSPOSITION AV FISTULA Labs w/IV start Labs w/IV start GARY TRANSPOSITION AV FISTULA 15 Labs w/IV start Labs w/IV start Chronic kidney disease, stage 5 FISTULA CHECK Labs w/IV start Chronic kidney disease, stage 5 Labs w/IV start Labs w/IV start Reason for Visit Kidney failure Health care maintenance Bilateral lower extremity edema CKD (chronic kidney disease) stage 5, GFR less than 15 ml/min Hyperlipidemia Hypertension Osteoporosis Type 2 diabetes mellitus CKD (chronic kidney disease) stage 5, GFR less than 15 ml/min CKD (chronic kidney disease) stage 5, GFR less than 15 ml/min CKD (chronic kidney disease) stage 5, GFR less than 15 ml/min CKD (chronic kidney disease) stage 5, GFR less than 15 ml/min Chief Complaint retacrit FISTULA retacrit peripheral lab draw SUPERVISOR SPECIAL EDUCATION, EST. CARE PREOP Labs w/IV start lt upper arm av fistula creation lt upper arm av fistula creation 1WK F/U Fistula & SR Labs w/IV start GARY TRANSPOSITION AV FISTULA GARY TRANSPOSITION AV FISTULA Labs w/IV start Labs w/IV start GARY TRANSPOSITION AV FISTULA 6/15 Labs w/IV start Labs w/IV start Chronic kidney disease, stage 5 FISTULA CHECK Labs w/IV start Chronic kidney disease, stage 5 Labs w/IV start Labs w/IV start 3WK F/U FISTULA CHECK Reason for Visit Kidney failure Health care maintenance Bilateral lower extremity edema CKD (chronic kidney disease) stage 5, GFR less than 15 ml/min Hyperlipidemia Hypertension Osteoporosis Type 2 diabetes mellitus CKD (chronic kidney disease) stage 5, GFR less than 15 ml/min CKD (chronic kidney disease) stage 5, GFR less than 15 ml/min CKD (chronic kidney disease) stage 5, GFR less than 15 ml/min CKD (chronic kidney disease) stage 5, GFR less than 15 ml/min CKD (chronic kidney disease) stage 5, GFR less than 15 ml/min Chief Complaint FISTULA retacrit peripheral lab draw SUPERVISOR SPECIAL EDUCATION, EST. CARE PREOP Labs w/IV start lt upper arm av fistula creation lt upper arm av fistula creation 1WK F/U Fistula & SR Labs w/IV start GARY TRANSPOSITION AV FISTULA GARY TRANSPOSITION AV FISTULA Labs w/IV start Labs w/IV start GARY TRANSPOSITION AV FISTULA 6/15 Labs w/IV start Labs w/IV start Chronic kidney disease, stage 5 FISTULA CHECK Labs w/IV start Chronic kidney disease, stage 5 Labs w/IV start Labs w/IV start 3WK F/U FISTULA CHECK Labs w/IV start Reason for Visit Kidney failure Health care maintenance Bilateral lower extremity edema CKD (chronic kidney disease) stage 5, GFR less than 15 ml/min Hyperlipidemia Hypertension Osteoporosis Type 2 diabetes mellitus CKD (chronic kidney disease) stage 5, GFR less than 15 ml/min CKD (chronic kidney disease) stage 5, GFR less than 15 ml/min CKD (chronic kidney disease) stage 5, GFR less than 15 ml/min CKD (chronic kidney disease) stage 5, GFR less than 15 ml/min CKD (chronic kidney disease) stage 5, GFR less than 15 ml/min Chief Complaint FOLLOW UP VERTIGO. RX HERE Reason for Visit H/O transurethral re section of bladder tumor (TURBT) Vertigo Cardiomyopathy Hypertension Hypothyroidism Type 2 diabetes mellitus Chief Complaint FOLLOW UP VERTIGO. RX HERE HYPERTENSIVE EMERGENCY, UTI Reason for Visit H/O transurethral re section of bladder tumor (TURBT) Vertigo Cardiomyopathy Hypertension Hypothyroidism Type 2 diabetes mellitus Acute encephalopathy Acute UTI ESRD on dialysis Hypertensive emergency Chief Complaint FOLLOW UP VERTIGO. RX HERE HYPERTENSIVE EMERGENCY, UTI HYPERTENSIVE EMERGENCY, UTI HYPERTENSIVE EMERGENCY, UTI HYPERTENSIVE EMERGENCY, UTI HYPERTENSIVE EMERGENCY, UTI HYPERTENSIVE EMERGENCY, UTI HYPERTENSIVE EMERGENCY, UTI HYPERTENSIVE EMERGENCY, UTI Reason for Visit H/O transurethral re section of bladder tumor (TURBT) Vertigo Cardiomyopathy Hypertension Hypothyroidism Type 2 diabetes mellitus Acute encephalopathy Acute UTI ESRD on dialysis Hypertensive emergency Chief Complaint FOLLOW UP VERTIGO. RX HERE HYPERTENSIVE EMERGENCY, UTI HYPERTENSIVE EMERGENCY, UTI HYPERTENSIVE EMERGENCY, UTI HYPERTENSIVE EMERGENCY, UTI HYPERTENSIVE EMERGENCY, UTI HYPERTENSIVE EMERGENCY, UTI HYPERTENSIVE EMERGENCY, UTI HYPERTENSIVE EMERGENCY, UTI LAB WORK LABWORK FALL Reason for Visit H/O transurethral re section of bladder tumor (TURBT) Vertigo Cardiomyopathy Hypertension Hypothyroidism Type 2 diabetes mellitus Acute encephalopathy Acute UTI Hypertensive emergency Chief Complaint FOLLOW UP VERTIGO. RX HERE HYPERTENSIVE EMERGENCY, UTI HYPERTENSIVE EMERGENCY, UTI HYPERTENSIVE EMERGENCY, UTI HYPERTENSIVE EMERGENCY, UTI HYPERTENSIVE EMERGENCY, UTI HYPERTENSIVE EMERGENCY, UTI HYPERTENSIVE EMERGENCY, UTI HYPERTENSIVE EMERGENCY, UTI LAB WORK LABWORK LABWORK FALL Reason for Visit H/O transurethral re section of bladder tumor (TURBT) Vertigo Cardiomyopathy Hypertension Hypothyroidism Type 2 diabetes mellitus Acute encephalopathy Acute UTI Hypertensive emergency Chief Complaint FOLLOW UP VERTIGO. RX HERE HYPERTENSIVE EMERGENCY, UTI HYPERTENSIVE EMERGENCY, UTI HYPERTENSIVE EMERGENCY, UTI HYPERTENSIVE EMERGENCY, UTI HYPERTENSIVE EMERGENCY, UTI HYPERTENSIVE EMERGENCY, UTI HYPERTENSIVE EMERGENCY, UTI HYPERTENSIVE EMERGENCY, UTI LAB WORK LABWORK LAB WORK LABWORK FALL LABWORK LAB WORK ACCELERATED HTN, ESRD ON HD, HYPERKALEMIA Reason for Visit H/O transurethral re section of bladder tumor (TURBT) Vertigo Cardiomyopathy Hypertension Hypothyroidism Type 2 diabetes mellitus Acute encephalopathy Acute UTI Hypertensive emergency Abdominal pain Acute hyperkalemia Acute hyponatremia Anemia Kidney failure Metastatic renal cell carcinoma Nausea Hypertension Chief Complaint Admit Date Hospital June 10, 2024 8:54am LABWORK June 11, 2024 9:00am LAB WORK June 14, 2024 5:00am 1 UNIT [facility] June 16, 2024 7:55am LAB WORK June 18, 2024 5:00am LABWORK June 21, 2024 5:00am LAB WORK June 23, 2024 5:00am LABWORK June 28, 2024 5:00 am Discuss Embolization June 29, 2024 11: 20am 1 UNIT [facility] June 30, 2024 7:55 am RETIREMENT LAB WORK July 01, 2024 4: 00am LABWORK July 05, 2024 5:0 0am MONTHLY EXAM July 08, 2024 2:0 4pm LABWORK July 12, 2024 5:0 0am LABWORK July 19, 2024 5:0 0am NEW CONCERN July 21, 2024 4:4 5pm MOUTH PAIN October 07, 2024 2:53 pm Reason for Visit Admit Date Gastric ulcer June 10, 2024 8:54am Loose stools June 10, 2024 8:54am Anemia June 29, 2024 11:2 0am Bladder cancer June 29, 2024 11:2 0am Hematuria June 29, 2024 11:2 0am Additional Source Comments INFORMATION SOURCE (unrecogn ized section and content) DATE CREATED AUTHOR 03/09/2020 [facility] DATE CREATED AUTHOR AUTHOR'S ORGANIZ ATION 03/09/2020 [facility] DATE CREATED AUTHOR AUTHOR'S ORGANIZ ATION 03/09/2020 [facility] DATE CREATED AUTHOR AUTHOR'S ORGANIZ ATION 08/07/2021 [facility] DATE CREATED AUTHOR AUTHOR'S ORGANIZ ATION 05/27/2022 [facility] ([place]) DATE CREATED AUTHOR AUTHOR'S ORGANIZ ATION 06/01/2023 [facility] DATE CREATED AUTHOR AUTHOR'S ORGANIZ ATION 09/08/2023 [facility] DATE CREATED AUTHOR AUTHOR'S ORGANIZ ATION 09/20/2023 [facility] DATE CREATED AUTHOR AUTHOR'S ORGANIZ ATION 09/22/2024 [facility] DATE CREATED AUTHOR AUTHOR'S ORGANIZ ATION 09/22/2024 [facility] DATE CREATED AUTHOR AUTHOR'S ORGANIZ ATION 10/01/2024 [facility] DATE CREATED AUTHOR AUTHOR'S ORGANIZ ATION 10/10/2024 [facility] Source Comments (unrecognize d section and content) In the event this informatio n is protected by the Federal Confidentiality of Alcohol and Drug Abuse Patient Records regulations: The Federal rules restrict any use of the information to criminally investigate or prosecute any alcohol or drug abuse patient.[facility] the event this information is protected by the Federal Confidentiality of Alcohol and Drug Abuse Patient Records regulations: The Federal rules restrict any use of the information to criminally investigate or prosecute any alcohol or drug abuse patient.[facility] Hospital[facility] the event this information is protected by the Federal Confidentiality of Alcohol and Drug Abuse Patient Records regulations: The Federal rules restrict any use of the information to criminally investigate or prosecute any alcohol or drug abuse patient.[facility] the event this information is protected by the Federal Confidentiality of Alcohol and Drug Abuse Patient Records regulations: The Federal rules restrict any use of the information to criminally investigate or prosecute any alcohol or drug abuse patient.[facility] the event this information is protected by the Federal Confidentiality of Alcohol and Drug Abuse Patient Records regulations: The Federal rules restrict any use of the information to criminally investigate or prosecute any alcohol or drug abuse patient.[facility] Hospital[facility] the event this information is protected by the Federal Confidentiality of Alcohol and Drug Abuse Patient Records regulations: The Federal rules restrict any use of the information to criminally investigate or prosecute any alcohol or drug abuse patient.[facility] Hospital[facility] the event this information is protected by the Federal Confidentiality of Alcohol and Drug Abuse Patient Records regulations: The Federal rules restrict any use of the information to criminally investigate or prosecute any alcohol or drug abuse patient.[facility] the event this information is protected by the Federal Confidentiality of Alcohol and Drug Abuse Patient Records regulations: The Federal rules restrict any use of the information to criminally investigate or prosecute any alcohol or drug abuse patient.[facility] Hospital[facility] the event this information is protected by the Federal Confidentiality of Alcohol and Drug Abuse Patient Records regulations: The Federal rules restrict any use of the information to criminally investigate or prosecute any alcohol or drug abuse patient.[facility] Hospital[facility] the event this information is protected by the Federal Confidentiality of Alcohol and Drug Abuse Patient Records regulations: The Federal rules restrict any use of the information to criminally investigate or prosecute any alcohol or drug abuse patient.[facility] Hospital[facility] the event this information is protected by the Federal Confidentiality of Alcohol and Drug Abuse Patient Records regulations: The Federal rules restrict any use of the information to criminally investigate or prosecute any alcohol or drug abuse patient.[facility] [facility] Hospital[facility] the event this information is protected by the Federal Confidentiality of Alcohol and Drug Abuse Patient Records regulations: The Federal rules restrict any use of the information to criminally investigate or prosecute any alcohol or drug abuse patient.[facility] the event this information is protected by the Federal Confidentiality of Alcohol and Drug Abuse Patient Records regulations: The Federal rules restrict any use of the information to criminally investigate or prosecute any alcohol or drug abuse patient.[facility] the event this information is protected by the Federal Confidentiality of Alcohol and Drug Abuse Patient Records regulations: The Federal rules restrict any use of the information to criminally investigate or prosecute any alcohol or drug abuse patient.[facility] the event this information is protected by the Federal Confidentiality of Alcohol and Drug Abuse Patient Records regulations: The Federal rules restrict any use of the information to criminally investigate or prosecute any alcohol or drug abuse patient.[facility] Reason for Visit (unrecogniz ed section and content) Reason Comments Cystoscopy-1 Reason Comments Radiology MRI Specialty Diagnoses / Procedures Referred By Contac t Referred To Contact MR IMAGING Diagnoses Malignant tumor of renal pelvis, 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) Encounter for follow-up surveillance of 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) Procedures MRI ABDOMEN URO WO/W IVCON MRI,ABDOMEN,W&WO Yee 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, 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 [address] [place] [address] Mr Imaging Referral ID Status Reason Start Date Expiration Date V isits Requested Visits Authorized [id number] Closed Auto-Generate d Referral 02/15/2021 03/17/2022 1 1 Reason Comments Patient Question Reason Comments Anesthesia Consult preop evaluation Reason Comments Results LAB result Patient Update Patient obtained car diac clearance Reason Comments Results Specialty Diagnoses / Procedures Referred By Contac t Referred To Contact Diagnoses Encephalopathy Paraneoplastic Syndrome/Hx RCC/Bladder Ca Ashley Stallings, DO [address] [facility] [address] [place] [address] [facility] [address] [place] [address] Referral ID Status Reason Start Date Expiration Date Visits Re quested Visits Authorized [id number] 1 Reason Onset Date Comments New Patient 07/08/2024 Reason Onset Date Comments Cancelled Appointment 09/16/2024 Care Teams (unrecognized sec tion and content) Care Team Personnel Name: Jessica Steiner Position: NA/UA Member Role: Other Name: SHIRA ROY MD Position: Physician Member Role: Primary Care Physician Address: [address] Telecom: Care Team Related Persons Name: Sumeet DURAND Name: DIYA DURAND Team Status: Active Member Role Status Dates [facility] Doctor Primary Care Provider Active Team Status: Active Member Role Status Dates Dr. Diana Titus MD Attending Provider Active Team Status: Inactive Member Role Status Dates Dr. Lorrie Mcknight MD Attending Provider, Referring Pro vider Active Team Status: Inactive Member Role Status Dates Dr. Lorrie Mcknight MD Attending Provider, Referring Pro vider Active [facility] Doctor Primary Care Provider Active Team Status: Inactive Member Role Status Dates [facility] Doctor Primary Care Provider Active Dr. Lorrie Mcknight MD Attending Provider, Referring Pro vider Active Team Status: Inactive Member Role Status Dates Dr. Lorrie Mcknight MD Attending Provider, Referring Pro vider Active KIRILL SILVA Primary Care Provider Active Dr. Lisette Cason MD Other Provider Active Team Status: Active Member Role Status Dates Dr. Lorrie Mcknight MD Attending Provider, Referring Pro vider Active [facility] Doctor Primary Care Provider Active Floral Clerk Relationship Specialty Start Date End Date Shira Roy MD [address] [place] [address] PCP - General Internal Medicine 10/14/13 Efrain Cooper MD [address] [place] [address] Primary Staff Physician Cardiology 10/27/20 Shasta Benitez APRN.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 [address] [place] [address] Referring Urology 11/07/20 Shasta Benitez APRN.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 [address] [place] [address] Home Care Physician Urology 11/07/20 Blair Galvan, RN [address] [place] [address] Education Manager Post Acute Care 11/07/20 Floral Clerk Relationship Specialty Start Date End Date Shira Roy MD [address] [place] [address] PCP - General Internal Medicine 10/14/13 Efrain Cooper MD [address] [facility] [place] [place] [address] Primary Staff Physician Cardiology 10/27/20 Shasta Benitez APRN.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 [address] [place] [address] Referring Urology 11/07/20 Shasta Benitez APRN.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 [address] [place] [address] Home Care Physician Urology 11/07/20 Blair Galvan RN [address] [place] [address] Education Manager Post Acute Care 11/07/20 Floral Clerk Relationship Specialty Start Date End Date Shira Roy MD [address] [place] [address] PCP - General Internal Medicine 10/14/13 Efrain Cooper MD [address] [place] [address] Primary Staff Physician Cardiology 10/27/20 Shasta Benitez APRN.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 [address] [place] [address] Referring Urology 11/07/20 Shasta Benitez APRN.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 [address] [place] [address] Home Care Physician Urology 11/07/20 Blair Galvan RN [address] [place] [address] Education Manager Post Acute Care 11/07/20 Floral Clerk Relationship Specialty Start Date End Date Shira Roy MD [address] [place] [address] PCP - General Internal Medicine 10/14/13 Efrain Cooper MD [address] [place] [address] Primary Staff Physician Cardiology 10/27/20 Shasta Benitez APRN.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 [address] [place] [address] Referring Urology 11/07/20 Shasta Benitez APRN.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 [address] [place] [address] Home Care Physician Urology 11/07/20 Blair Galvan, LIZETTE [address] [place] [address] Education Manager Post Acute Care 11/07/20 Floral Clerk Relationship Specialty Start Date End Date Shira Roy MD [address] [facility] [address] [place] [address] PCP - General Internal Medicine 10/14/13 Efrain Cooper MD [address] [place] [address] Primary Staff Physician Cardiology 10/27/20 Shasta Benitez APRN.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 [address] [place] [address] Referring Urology 11/07/20 Shasta Benitez APRN.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 [address] [place] [address] Home Care Physician Urology 11/07/20 Blair Galvan RN [address] [place] [address] Education Manager Post Acute Care 11/07/20 Floral Clerk Relationship Specialty Start Date End Date Shira Roy MD [address] [place] [address] PCP - General Internal Medicine 10/14/13 Efrain Cooper MD [address] [place] [address] Primary Staff Physician Cardiology 10/27/20 Shasta Benitez APRN.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 [address] [place] [address] Referring Urology 11/07/20 Shasta Benitez APRN.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 [address] [place] [address] Home Care Physician Urology 11/07/20 Blair Galvan, LIZETTE [address] [place] [address] Education Manager Post Acute Care 11/07/20 Floral Clerk Relationship Specialty Start Date End Date Shira Roy MD [address] [place] [address] PCP - General Internal Medicine 10/14/13 Efrain Cooper MD [address] [place] [address] Primary Staff Physician Cardiology 10/27/20 Shasta Benitez APRN.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 [address] [place] [address] Referring Urology 11/07/20 Shasta Benitez APRN.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 [address] [place] [address] Home Care Physician Urology 11/07/20 Blair Galvan RN [address] [place] [address] Education Manager Post Acute Care 11/07/20 Floral Clerk Relationship Specialty Start Date End Date Shira Roy MD [address] [place] [address] PCP - General Internal Medicine 10/14/13 Efrain Cooper MD [address] [place] [address] Primary Staff Physician Cardiology 10/27/20 Shasta Benitez APRN.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 [address] [place] [address] Referring Urology 11/07/20 Shasta Benitez APRN.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 [address] [place] [address] Home Care Physician Urology 11/07/20 Blair Galvan RN [address] [place] [address] Education Manager Post Acute Care 11/07/20 Floral Clerk Relationship Specialty Start Date End Date Shira Roy MD [address] [place] [address] PCP - General Internal Medicine 10/14/13 Efrain Cooper MD [address] [place] [address] Primary Staff Physician Cardiology 10/27/20 Shasta Benitez APRN.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 [address] [place] [address] Referring Urology 11/07/20 Shasta Benitez APRN.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 [address] [place] [address] Home Care Physician Urology 11/07/20 Blair Galvan RN [address] [place] [address] Education Manager Post Acute Care 11/07/20 Floral Clerk Relationship Specialty Start Date End Date Shira Roy MD [address] [place] [address] PCP - General Internal Medicine 10/14/13 Efrain Cooper MD [address] [facility] [place] [place] [address] Primary Staff Physician Cardiology 10/27/20 Shasta Benitez APRN.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 [address] [place] [address] Referring Urology 11/07/20 Shasta Benitez APRN.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 [address] [place] [address] Home Care Physician Urology 11/07/20 Blair Galvan RN [address] [place] [address] Education Manager Post Acute Care 11/07/20 Floral Clerk Relationship Specialty Start Date End Date Shira Roy MD [address] [facility] [address] [place] [address] PCP - General Internal Medicine 10/14/13 Efrain Cooper MD [address] [facility] [place] [place] [address] Primary Staff Physician Cardiology 10/27/20 Shasta Benitez APRN.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 [address] [place] [address] Referring Urology 11/07/20 Shasta Benitez APRN.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 [address] [place] [address] Home Care Provider Urology 11/07/20 Blair Galvan RN [address] [place] [address] Education Manager Post Acute Care 11/07/20 Team Status: Inactive Member Role Status Dates Dr. Diana Titus MD Attending Provider Active [facility] Doctor Primary Care Provider, Referring Pr ovider Active Team Status: Active Member Role Status Dates [facility] Doctor Primary Care Provider Active Dr. Lorrie Mcknight MD Attending Provider, Referring Pro vider Active Team Status: Active Member Role Status Dates Dr. Osmani Morgan MD Primary Care Provider Active Team Status: Inactive Member Role Status Dates Dr. Osmani Morgan MD Attending Provider Active [facility] Doctor Primary Care Provider, Referring Pr ovider Active Team Status: Inactive Member Role Status Dates Dr. Lisette Cason MD Attending Provider, Re ferring Provider Active [facility] Doctor Primary Care Provider Active Team Status: Inactive Member Role Status Dates Dr. Lorrie Mcknight MD Attending Provider, Referring Pro vider Active Dr. Osmani Morgan MD Primary Care Provider Active Team Status: Active Member Role Status Dates Dr. Diana Titus MD Attending Provid er, Referring Provider, Other Provider Active Dr. Osmani Morgan MD Primary Care Provider Active Team Status: Active Member Role Status Dates Dr. Osmani Morgan MD Primary Care Provider Active Dr. Jason Irby MD Attending Provider Active Dr. Diana Titus MD Referring Provider Active Team Status: Inactive Member Role Status Dates Dr. Osmani Morgan MD Primary Care Provider Active Dr. Diana Titus MD Attending Provider, Referring Provider Active Team Status: Active Member Role Status Dates Dr. Osmani Morgan MD Primary Care Provider Active Dr. Diana Titus MD Attending Provid er, Referring Provider, Other Provider Active Team Status: Inactive Member Role Status Dates Dr. Diana Titus MD Attending Provider, Referring Provider Active Dr. Osmani Morgan MD Primary Care Provider Active Team Status: Inactive Member Role Status Dates Dr. Osmani Morgan MD Primary Care Provider Active Dr. Lorrie Mcknight MD Attending Provider, Referring Pro vider Active Team Status: Inactive Member Role Status Dates Dr. Osmani Morgan MD Primary Care Provider, Refer ring Provider Active Crissy FERRARA PA-C Attending Provider Active Team Status: Inactive Member Role Status Dates Dr. Osmani Morgan MD Primary Care Provider, Refer ring Provider Active Dr. Diana Titus MD Attending Provider Active Team Status: Inactive Member Role Status Dates Dr. Osmani Morgan MD Primary Care Provider Active Dr. Lisette Cason MD Attending Provider, Re ferring Provider Active Team Status: Active Member Role Status Dates Dr. Osmani Morgan MD Primary Care Provider Active Dr. Chacorta Neal MD Attending Provider, Referrin g Provider Active Team Status: Inactive Member Role Status Dates Dr. Osmani Morgan MD Primary Care Provider Active Dr. Chacorta Neal MD Attending Provider, Referrin g Provider Active Team Status: Active Member Role Status Dates Dr. Osmani Morgan MD Primary Care Provider Active Dr. Lisette Cason MD Attending Provider, Re ferring Provider Active Floral Clerk Relationship Specialty Start Date End Date Shira Roy MD [address] [place], [place] [id number] PCP - General Internal Medicine 10/14/13 Efrain Cooper MD [address] [place] [address] Primary Staff Physician Cardiology 10/27/20 Shasta Benitez APRN.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 [address] [place] [address] Referring Urology 11/07/20 Shasta Benitez APRN.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 [address] [place] [address] Home Care Provider Urology 11/07/20 Blair Galvan, LIZETTE [address] [place], [place] [id number] Education Manager Post Acute Care 11/07/20 Floral Clerk Relationship Specialty Start Date End Date Shira Roy MD [address] [place] [address] PCP - General Internal Medicine 10/14/13 Efrain Cooper MD [address] [place] [address] Primary Staff Physician Cardiology 10/27/20 Shasta Benitez APRN.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 [address] [place] [address] Referring Urology 11/07/20 Shasta Benitez APRN.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 [address] [place] [address] Home Care Provider Urology 11/07/20 Blair Galvan, RN [address] [place] [address] Education Manager Post Acute Care 11/07/20 Team Status: Inactive Member Role Status Dates Dr. Osmani Morgan MD Primary Care P [place], Attending Provider, Referring Provider Active Team Status: Active Member Role Status Dates Dr. Osmani Morgan MD Primary Care P rovider, Attending Provider, Referring Provider Active Team Status: Inactive Member Role Status Dates Dr. Osmani Morgan MD Primary Care Provider, Atten ding Provider Active Team Status: Active Member Role Status Dates Dr. Osmani Morgan MD Primary Care Provider Active Dr. Holland Flores MD Emergency Provider Active Dr. Anastacia Selby MD Admit Provider, Attending Prov ider Active Dr. Jc Agosto MD Other Provider Active Dr. Hany Braxton MD Other Provider Active Dr. Anthony Bowers DO Other Provider Active Dr. Blu Martinez MD Other Provider Active Dr. Robyn Fuentes MD Other Provider Active Dr. Song Gomez MD Other Provider Active Dr. Kitty Chamberlain MD Other Provider Active Dr. Jeremie Durand MD Other Provider Active Dr. Zhao Garcia MD Other Provider Active Dr. Blane Brand MD Other Provider Active Dr. Parminder Arita MD Other Provider Active Dr. Alfredito Olivas MD Other Provider Active Team Status: Active Member Role Status Dates Dr. Osmani Morgan MD Primary Care Provider Active Dr. Holland Flores MD Emergency Provider Active Dr. Anastacia Selby MD Admit Provider, Other Provider Active Dr. Jc Agosto MD Other Provider Active Dr. Hany Braxton MD Other Provider Active Dr. Anthony Bowers DO Attending Provider, Other Provide r Active Dr. Blu Martinez MD Other Provider Active Dr. Robyn Fuentes MD Other Provider Active Dr. Song Gomez MD Other Provider Active Dr. Kitty Chamberlain MD Other Provider Active Dr. Jeremie Durand MD Other Provider Active Dr. Zhao Garcia MD Other Provider Active Dr. Blane Brand MD Other Provider Active Dr. Parminder Arita MD Other Provider Active Dr. Alfredito Olivas MD Other Provider Active Dr. Shu Ballesteros MD Other Provider Active Dr. Maria Del Rosario Cooper MD Other Provider Active Team Status: Active Member Role Status Dates Dr. Osmani Morgan MD Primary Care Provider Active Dr. Jason Irby MD Attending Provider Active Team Status: Active Member Role Status Dates Dr. Osmani Morgan MD Primary Care Provider Active Dr. Holland Flores MD Emergency Provider Active Dr. Anastacia Selby MD Admit Provider, Other Provider Active Dr. Shu Ballesteros MD Other Provider Active Dr. Maria Del Rosario Cooper MD Other Provider Active Dr. Anthony Bowers DO Attending Provider Active Team Status: Active Member Role Status Dates Dr. Osmani Morgan MD Primary Care Provider Active Dr. Holland Flores MD Emergency Provider Active Dr. Anastacia Selby MD Admit Provider, Other Provider Active Dr. Shu Ballesteros MD Other Provider Active Dr. Maria Del Rosario Cooper MD Attending Provider, Other Prov ider Active Team Status: Active Member Role Status Dates Dr. Osmani Morgan MD Primary Care Provider Active Dr. Holland Flores MD Emergency Provider Active Dr. Anastacia Selby MD Admit Provider, Other Provider Active Dr. Maria Del Rosario Cooper MD Attending Provider, Other Prov ider Active Dr. Shu Ballesteros MD Other Provider Active Team Status: Active Member Role Status Dates Dr. Osmani Morgan MD Primary Care Provider Active Dr. Holland Flores MD Emergency Provider Active Dr. Anastacia Selby MD Admit Provider, Attending Provider, Other Provider Active Dr. Maria Del Rosario Cooper MD Other Provider Active Dr. Shu Ballesteros MD Other Provider Active Team Status: Active Member Role Status Dates Dr. Osmani Morgan MD Primary Care Provider Active Dr. Holland Flores MD Emergency Provider Active Dr. Anastacia Selby MD Admit Provider, Other Provider Active Dr. Shu Ballesteros MD Other Provider Active Dr. León Ye , DO Attending Provider, Other Provider Active Dr. Maria Del Rosario Cooper MD Other Provider Active Team Status: Inactive Member Role Status Dates Dr. Osmani Morgan MD Primary Care Provider Active Dr. Holland Flores MD Emergency Provider Active Dr. Anastacia Selby MD Admit Provider, Other Provider Active Dr. Shu Ballesteros MD Other Provider Active Dr. León Ye , DO Attending Provider Active Dr. Maria Del Rosario Cooper MD Other Provider Active Lamin Smith MD Other Provider Active Dr. Francesca Kuhn MD Other Provider Active Priti Harden MD Other Provider Active Dr. Sherita Freitas DO Other Provider Active Dr. Staci Duron MD Other Provider Active Dr. Kimani Milligan MD Other Provider Active Dr. Emma Orellana MD Other Provider Active Dr. Thompson Belle MD Other Provider Active Dr. Lorrie Gallegos MD Other Provider Active Melly Sandoval MD Other Provider Active Dr. Kyle Borrero MD Other Provider Active Dr. Aleshia Martinez MD Other Provider Active Dr. Linda Celestin MD Other Provider Active Dr. Lauren Post MD Other Provider Active Dr. Chalino Kim MD Other Provider Active Dr. Zion Byers MD Other Provider Active Dr. Todd Dougherty MD Other Provider Active Dr. Ariane Casas MD Other Provider Active Maria Elena Regan MD Other Provider Active Team Status: Active Member Role Status Dates Dr. Osmani Morgan MD Primary Care Provider Active Dr. Holland Flores MD Emergency Provider Active Dr. Anastacia Selby MD Admit Provider, Other Provider Active Dr. Jc Agosto MD Other Provider Active Dr. Hany Braxton MD Other Provider Active Dr. Anthony Bowers DO Attending Provider, Other Provide r Active Dr. Blu Martinez MD Other Provider Active Dr. Robyn Fuentes MD Other Provider Active Dr. Song Gomez MD Other Provider Active Dr. Kitty Chamberlain MD Other Provider Active Dr. Jeremie Durand MD Other Provider Active Dr. Zhao Garcia MD Other Provider Active Dr. Blane Brand MD Other Provider Active Dr. Parminder Arita MD Other Provider Active Dr. Alfredito Olivas MD Other Provider Active Dr. Shu Ballesteros MD Other Provider Active Dr. Maria Del Rosario Cooper MD Other Provider Active Dr. León Ye DO Referring Provider Active Team Status: Active Member Role Status Dates Dr. Osmani Morgan MD Primary Care Provider Active Dr. Holland Flores MD Emergency Provider Active Dr. Anastacia Selby MD Admit Provider, Other Provider Active Dr. Shu Ballesteros MD Other Provider Active Dr. Maria Del Rosario Cooper MD Other Provider Active Dr. Anthony Bowers DO Attending Provider Active Dr. León Ye DO Referring Provider Active Team Status: Inactive Member Role Status Dates Dr. Osmani Morgan MD Primary Care Provider Active Dr. Batool Caraballo DO Emergency Provider Active Team Status: Active Member Role Status Dates Dr. Osmani Morgan MD Primary Care Provider Active Dr. Lima ONEILL MD Attending Provider Active Team Status: Active Member Role Status Dates Dr. Osmani Morgan MD Primary Care Provider Active Dr. Shu Ballesteros MD Attending Provider Active Team Status: Inactive Member Role Status Dates Dr. Osmani Morgan MD Primary Care Provider Active Dr. Batool Caraballo DO Attending Provider, Emergency Carmelina montenegro Active Team Status: Active Member Role Status Dates Dr. Osmani Morgan MD Primary Care Provider Active Dr. Lima ONEILL MD Attending Provider, Referring Provider Active Team Status: Active Member Role Status Dates Dr. Osmani Morgan MD Primary Care Provider Active Dr. Juan Carlos Molina DO Emergency Provider Active Dr. Sanchez Grant DO Admit Provider, Attending Pr ovider Active Floral Clerk Relationship Specialty Start Date End Date Osmani Morgan MD [address] [place] [address] [id number] PCP - General Internal Medicine 09/05/23 Team Status: Inactive Member Role Status Dates Dr. Osmani Morgan MD Primary Care Provider Active Start: May 06, 2024 End: May 06, 2024 Dr. Osmani Morgan MD Referring Provider Active Start: May 06, 2024 End: May 06, 2024 ALEM Clark Attending Provider Active St art: May 06, 2024 End: May 06, 2024 Team Status: Inactive Member Role Status Dates Dr. Osmani Morgan MD Primary Care Provider Active Start: May 15, 2024 End: May 19, 2024 Dr. Christopher Bills DO Emergency Provider Active Start: May 15, 2024 End: May 19, 2024 Dr. Sanchez Grant DO Admit Provider Active Start: May 15, 2024 End: May 19, 2024 Dr. Sanchez Grant DO Other Provider Active Start: May 15, 2024 End: May 19, 2024 Dr. Rafita Monzon MD Attending Provider Active Start: May 15, 2024 End: May 19, 2024 Dr. Lizzy Richards MD Other Provider Active Start: May 15, 2024 End: May 19, 2024 Dr. Kenneth Szymanski MD Other Provider Active Start: May 15, 2024 End: May 19, 2024 Team Status: Active Member Role Status Dates Dr. Osmani Morgan MD Primary Care Provider Active Start: May 15, 2024 Dr. Lico Dang MD Attending Provider Active Start: May 15, 2024 Team Status: Active Member Role Status Dates Dr. Osmani Morgan MD Primary Care Provider Active Start: May 16, 2024 Dr. Christopher Bills DO Emergency Provider Active Start: May 16, 2024 Dr. Sanchez Grant DO Admit Provider Active Start: May 16, 2024 Dr. Sanchez Grant DO Other Provider Active Start: May 16, 2024 Dr. Rafita Monzon MD Attending Provider Active Start: May 16, 2024 Dr. Rafita Monzon MD Other Provider Active Sta rt: May 16, 2024 Dr. Lizzy Richards MD Other Provider Active Start: May 16, 2024 Team Status: Active Member Role Status Dates Dr. Osmani Morgan MD Primary Care Provider Active Start: May 17, 2024 Dr. Christopher Bills DO Emergency Provider Active Start: May 17, 2024 Dr. Sanchez Grant DO Admit Provider Active Start: May 17, 2024 Dr. Sanchez Grant DO Other Provider Active Start: May 17, 2024 Dr. Rafita Monzon MD Attending Provider Active Start: May 17, 2024 Dr. Rafita Monzon MD Other Provider Active Sta rt: May 17, 2024 Dr. Lizzy Richards MD Other Provider Active Start: May 17, 2024 Dr. Kenneth Szymanski MD Other Provider Active Start: May 17, 2024 Team Status: Active Member Role Status Dates Dr. Osmani Morgan MD Primary Care Provider Active Start: May 17, 2024 Dr. Christopher Bills DO Emergency Provider Active Start: May 17, 2024 Dr. Sanchez Grant DO Admit Provider Active Start: May 17, 2024 Dr. Sanchez Grant DO Other Provider Active Start: May 17, 2024 Dr. Rafita Monzon MD Other Provider Active Sta rt: May 17, 2024 Dr. Lizzy Richards MD Other Provider Active Start: May 17, 2024 Dr. Kenneth Szymanski MD Attending Provider Activ e Start: May 17, 2024 Dr. Kenneth Szymanski MD Other Provider Active Start: May 17, 2024 Team Status: Active Member Role Status Dates Dr. Osmani Morgan MD Primary Care Provider Active Start: May 17, 2024 Dr. Christopher Bills DO Emergency Provider Active Start: May 17, 2024 Dr. Sanchez Grant DO Admit Provider Active Start: May 17, 2024 Dr. Sanchez Grant DO Other Provider Active Start: May 17, 2024 Dr. Rafita Monzon MD Referring Provider Active Start: May 17, 2024 Dr. Rafita Monzon MD Other Provider Active Sta rt: May 17, 2024 Dr. Lizzy Richards MD Other Provider Active Start: May 17, 2024 Dr. Kenneth Szymanski MD Other Provider Active Start: May 17, 2024 Dr. David Mike DO Attending Provider Active Start: May 17, 2024 Team Status: Active Member Role Status Dates Dr. Osmani Morgan MD Primary Care Provider Active Start: May 18, 2024 Dr. Sung Freeman MD Attending Provider Active S tart: May 18, 2024 Dr. Rafita Monzon MD Referring Provider Active Start: May 18, 2024 Team Status: Active Member Role Status Dates Dr. Osmnai Morgan MD Primary Care Provider Active Start: May 18, 2024 Dr. Christopher Bills DO Emergency Provider Active Start: May 18, 2024 Dr. Sanchez Grant DO Admit Provider Active Start: May 18, 2024 Dr. Sanchez Grant DO Other Provider Active Start: May 18, 2024 Dr. Rafita Monzon MD Referring Provider Active Start: May 18, 2024 Dr. Rafita Monzon MD Other Provider Active Sta rt: May 18, 2024 Dr. Lizzy Richards MD Other Provider Active Start: May 18, 2024 Dr. Kenneth Szymanski MD Other Provider Active Start: May 18, 2024 Dr. David Mike DO Attending Provider Active Start: May 18, 2024 Team Status: Active Member Role Status Dates Dr. Osmani Morgan MD Primary Care Provider Active Start: May 18, 2024 Dr. Christopher Bills DO Emergency Provider Active Start: May 18, 2024 Dr. Sanchez Grant DO Admit Provider Active Start: May 18, 2024 Dr. Sanchez Grant DO Other Provider Active Start: May 18, 2024 Dr. Rafita Monzon MD Attending Provider Active Start: May 18, 2024 Dr. Rafita Monzon MD Other Provider Active Sta rt: May 18, 2024 Dr. Lizzy Richards MD Other Provider Active Start: May 18, 2024 Dr. Kenneth Szymanski MD Other Provider Active Start: May 18, 2024 Team Status: Active Member Role Status Dates Dr. Osmani Morgan MD Primary Care Provider Active Start: May 19, 2024 Dr. Christopher Bills DO Emergency Provider Active Start: May 19, 2024 Dr. Sanchez Grant DO Admit Provider Active Start: May 19, 2024 Dr. Sanchez Grant DO Other Provider Active Start: May 19, 2024 Dr. Rafita Monzon MD Referring Provider Active Start: May 19, 2024 Dr. Rafita Monzon MD Other Provider Active Sta rt: May 19, 2024 Dr. Lizzy Richards MD Other Provider Active Start: May 19, 2024 Dr. Kenneth Szymanski MD Other Provider Active Start: May 19, 2024 Dr. David Mike DO Attending Provider Active Start: May 19, 2024 Team Status: Active Member Role Status Dates Dr. Osmani Morgan MD Primary Care Provider Active Start: May 19, 2024 Dr. Christopher Bills DO Emergency Provider Active Start: May 19, 2024 Dr. Sanchez Grant DO Admit Provider Active Start: May 19, 2024 Dr. Sanchez Grant DO Other Provider Active Start: May 19, 2024 Dr. Rafita Monzon MD Attending Provider Active Start: May 19, 2024 Dr. Rafita Monzon MD Other Provider Active Sta rt: May 19, 2024 Dr. Lizzy Richards MD Other Provider Active Start: May 19, 2024 Dr. Kenneth Szymanski MD Other Provider Active Start: May 19, 2024 Team Status: Active Member Role Status Dates Dr. Osmani Morgan MD Primary Care Provider Active Start: May 20, 2024 Osmani ONEILL MD Attending Provider Active Start: May 20, 2024 Team Status: Inactive Member Role Status Dates Dr. Osmani Morgan MD Primary Care Provider Active Start: May 20, 2024 End: May 20, 2024 Tabby Palmer SUPERVISOR SPECIAL EDUCATION, SUPERVISOR SPECIAL EDUCATION-C Attending Provider Active Start: May 20, 2024 End: May 20, 2024 Team Status: Active Member Role Status Dates Dr. Osmani Morgan MD Primary Care Provider Active Start: May 24, 2024 Osmani ONEILL MD Attending Provider Active Start: May 24, 2024 Osmani ONEILL MD Referring Provider Active Start: May 24, 2024 Team Status: Inactive Member Role Status Dates Dr. Osmani Morgan MD Primary Care Provider Active Start: May 24, 2024 End: May 24, 2024 Tabby Palmer SUPERVISOR SPECIAL EDUCATION, SUPERVISOR SPECIAL EDUCATION-C Attending Provider Active Start: May 24, 2024 End: May 24, 2024 Team Status: Inactive Member Role Status Dates Dr. Osmani Morgan MD Primary Care Provider Active Start: May 25, 2024 End: May 25, 2024 Tabby Palmer SUPERVISOR SPECIAL EDUCATION, SUPERVISOR SPECIAL EDUCATION-C Attending Provider Active Start: May 25, 2024 End: May 25, 2024 Tabby Palmer SUPERVISOR SPECIAL EDUCATION, SUPERVISOR SPECIAL EDUCATION-C Referring Provider Active Start: May 25, 2024 End: May 25, 2024 Team Status: Inactive Member Role Status Dates Dr. Osmani Morgan MD Primary Care Provider Active Start: May 25, 2024 End: May 25, 2024 Dr. Osmani Morgan MD Attending Provider Active Start: May 25, 2024 End: May 25, 2024 Team Status: Active Member Role Status Dates Dr. Osmani Morgan MD Primary Care Provider Active Start: May 26, 2024 Osmani ONEILL MD Attending Provider Active Start: May 26, 2024 Team Status: Active Member Role Status Dates Dr. Osmani Morgan MD Primary Care Provider Active Start: May 31, 2024 Osmani ONEILL MD Attending Provider Active Start: May 31, 2024 Team Status: Inactive Member Role Status Dates Dr. Osmani Morgan MD Primary Care Provider Active Start: June 04, 2024 End: June 04, 2024 Tabby Palmer SUPERVISOR SPECIAL EDUCATION, SUPERVISOR SPECIAL EDUCATION-C Attending Provider Active Start: June 04, 2024 End: June 04, 2024 Tabby Palmer SUPERVISOR SPECIAL EDUCATION, SUPERVISOR SPECIAL EDUCATION-C Referring Provider Active Start: June 04, 2024 End: June 04, 2024 Team Status: Active Member Role Status Dates Dr. Osmani Morgan MD Primary Care Provider Active Start: June 07, 2024 Osmani ONEILL MD Attending Provider Active Start: June 07, 2024 Team Status: Inactive Member Role Status Dates Dr. Osmani Morgan MD Primary Care Provider Active Start: June 10, 2024 End: June 10, 2024 Dr. Osmani Morgan MD Referring Provider Active Start: June 10, 2024 End: June 10, 2024 ALEM Saha Attending Provider Active Start: June 10, 2024 End: June 10, 2024 Team Status: Active Member Role Status Dates Dr. Osmani Morgan MD Primary Care Provider Active Start: June 11, 2024 Osmani ONEILL MD Attending Provider Active Start: June 11, 2024 Team Status: Active Member Role Status Dates Dr. Osmani Morgan MD Primary Care Provider Active Start: June 14, 2024 Osmani ONEILL MD Attending Provider Active Start: June 14, 2024 Team Status: Inactive Member Role Status Dates Dr. Osmani Morgan MD Primary Care Provider Active Start: June 16, 2024 End: June 16, 2024 Tabby Palmer SUPERVISOR SPECIAL EDUCATION, SUPERVISOR SPECIAL EDUCATION-C Attending Provider Active Start: June 16, 2024 End: June 16, 2024 Tabby Palmer SUPERVISOR SPECIAL EDUCATION, SUPERVISOR SPECIAL EDUCATION-C Referring Provider Active Start: June 16, 2024 End: June 16, 2024 Team Status: Active Member Role Status Dates Dr. Osmani Morgan MD Primary Care Provider Active Start: June 18, 2024 Osmani ONEILL MD Attending Provider Active Start: June 18, 2024 Team Status: Active Member Role Status Dates Dr. Osmani Morgan MD Primary Care Provider Active Start: June 21, 2024 Osmani ONEILL MD Attending Provider Active Start: June 21, 2024 Team Status: Active Member Role Status Dates Dr. Osmani Morgan MD Primary Care Provider Active Start: June 23, 2024 Osmani ONEILL MD Attending Provider Active Start: June 23, 2024 Team Status: Inactive Member Role Status Dates Dr. Osmani Morgan MD Primary Care Provider Active Start: June 28, 2024 End: June 28, 2024 Osmani ONEILL MD Attending Provider Active Start: June 28, 2024 End: June 28, 2024 Team Status: Inactive Member Role Status Dates Dr. Osmani Morgan MD Primary Care Provider Active Start: June 29, 2024 End: June 29, 2024 Dr. Osmani Morgan MD Referring Provider Active Start: June 29, 2024 End: June 29, 2024 ALEM Barrera Attending Provider Active Star t: June 29, 2024 End: June 29, 2024 Team Status: Inactive Member Role Status Dates Dr. Osmani Morgan MD Primary Care Provider Active Start: June 30, 2024 End: June 30, 2024 Tabby Palmer SUPERVISOR SPECIAL EDUCATION, SUPERVISOR SPECIAL EDUCATION-C Attending Provider Active Start: June 30, 2024 End: June 30, 2024 Tabby Palmer SUPERVISOR SPECIAL EDUCATION, SUPERVISOR SPECIAL EDUCATION-C Referring Provider Active Start: June 30, 2024 End: June 30, 2024 Team Status: Inactive Member Role Status Dates Dr. Osmani Morgan MD Primary Care Provider Active Start: July 01, 2024 End: July 01, 2024 Osmani ONEILL MD Attending Provider Active Start: July 01, 2024 End: July 01, 2024 Osmani ONEILL MD Referring Provider Active Start: July 01, 2024 End: July 01, 2024 Team Status: Inactive Member Role Status Dates Dr. Osmani Morgan MD Primary Care Provider Active Start: July 05, 2024 End: July 05, 2024 Osmani ONEILL MD Attending Provider Active Start: July 05, 2024 End: July 05, 2024 Team Status: Inactive Member Role Status Dates Dr. Osmani Morgan MD Primary Care Provider Active Start: July 08, 2024 End: July 08, 2024 Tabby Palmer SUPERVISOR SPECIAL EDUCATION, SUPERVISOR SPECIAL EDUCATION-C Attending Provider Active Start: July 08, 2024 End: July 08, 2024 Team Status: Inactive Member Role Status Dates Dr. Osmani Morgan MD Primary Care Provider Active Start: July 12, 2024 End: July 12, 2024 Osmani ONEILL MD Attending Provider Active Start: July 12, 2024 End: July 12, 2024 Team Status: Inactive Member Role Status Dates Dr. Osmani Morgan MD Primary Care Provider Active Start: July 19, 2024 End: July 19, 2024 Osmani ONEILL MD Attending Provider Active Start: July 19, 2024 End: July 19, 2024 Team Status: Inactive Member Role Status Dates Dr. Osmani Morgan MD Primary Care Provider Active Start: July 21, 2024 End: July 21, 2024 Tabby Palmer SUPERVISOR SPECIAL EDUCATION, SUPERVISOR SPECIAL EDUCATION-C Attending Provider Active Start: July 21, 2024 End: July 21, 2024 Team Status: Inactive Member Role Status Dates Dr. Osmani Morgan MD Primary Care Provider Active Start: August 20, 2024 End: August 20, 2024 Dr. Fabian Lawson MD Attending Provider Active Start: August 20, 2024 End: August 20, 2024 Team Status: Inactive Member Role Status Dates Dr. Osmani Morgan MD Primary Care Provider Active Start: October 07, 2024 End: October 07, 2024 Dr. Osmani Morgan MD Referring Provider Active Start: October 07, 2024 End: October 07, 2024 Jaswinder FERRARA, [place] Attending Provider Active Sta rt: October 07, 2024 End: October 07, 2024 Care Team (unrecognized sect ion and content) Care Team Personnel Name: Jessica Steiner Position: P3 Scheduling - Survey Crew Chief Advanced Member Role: Other Name: SHIRA ROY MD Position: Physician Med Service: Active Provider Member Role: Primary Care Physician Address: Address: [place] [address]- Care Team Related Persons Name: Sumeet DURAND Address: Home [address] Name: CAMILLA DURAND Care Team Personnel Name: Jessica Steiner Position: P3 Scheduling - Survey Crew Chief Advanced Member Role: Other Name: SHIRA RYO MD Position: Physician Med Service: Active Provider Member Role: Primary Care Physician Address: Address: [place] [id number] Care Team Related Persons Name: Sumeet DURAND Address: Home [address] Name: CAMILLA DURAND Care Team Personnel Name: Jessica Steiner Position: P3 Scheduling - Survey Crew Chief Advanced Member Role: Other Name: SHIRA ROY MD Position: Physician Med Service: Active Provider Member Role: Primary Care Physician Address: Address: [address] Care Team Related Persons Name: Sumeet DURAND Address: Home [address] Name: CAMILLA DURAND Care Team Personnel Name: Jessica Steiner Position: P3 Scheduling - Survey Crew Chief Advanced Member Role: Other Name: SHIRA ROY MD Position: Physician Med Service: Active Provider Member Role: Primary Care Physician Address: Address: [address] Care Team Related Persons Name: PAOLANICOLESumeet DE JESUS Address: Home [address] Name: CAMILLA DURAND Care Team Personnel Name: Jessica Steiner Position: P3 Scheduling - Survey Crew Chief Advanced Member Role: Other Name: SHIRA ROY MD Position: Physician Med Service: Active Provider Member Role: Primary Care Physician Address: Address: [facility] [address] [place], [place] [address]- Care Team Related Persons Name: Smueet DURAND Address: Home [address] Name: CAMILLA DURAND Care Team Personnel Name: Jessica Steiner Position: P3 Scheduling - Survey Crew Chief Advanced Member Role: Other Name: SHIRA ROY MD Position: Physician Member Role: Primary Care Physician Address: Address: [facility] [place] [id number]- Name: Marisol Orlando RN Position: P4 starter cup powder mixer Member Role: RN Care Team Related Persons Name: Sumeet DURAND Address: Home [address] [place] [id number] Name: CAMILLA DURAND Care Team Personnel Name: Jessica Steiner Position: P3 Scheduling - Survey Crew Chief Advanced Member Role: Other Name: SHIRA ROY MD Position: Physician Med Service: Active Provider Member Role: Primary Care Physician Address: Address: [facility] [address] [place], [place] [address]- Care Team Related Persons Name: Sumeet DURAND Address: Home [address] Name: CAMILLA DURAND Care Team Personnel Name: Jessica Steiner Position: P3 Scheduling - Survey Crew Chief Advanced Member Role: Other Name: SHIRA ROY MD Position: Physician Med Service: Active Provider Member Role: Primary Care Physician Address: Address: [facility] [address] [place], [place] [address]- Care Team Related Persons Name: Sumeet DURAND Address: Home [address] Name: CAMILLA DURAND Care Team Personnel Name: Jessica Steiner Position: P3 Scheduling - Survey Crew Chief Advanced Member Role: Other Name: SHIRA ROY MD Position: Physician Med Service: Active Provider Member Role: Primary Care Physician Address: Address: [facility] [address] [place], [place] [address]- Care Team Related Persons Name: Sumeet DURAND Address: Home [address] [place] [id number] Name: CAMILLA DURADN Care Team Personnel Name: Jessica Steiner Position: P3 Scheduling - Survey Crew Chief Advanced Member Role: Other Name: SHIRA ROY MD Position: Physician Member Role: Primary Care Physician Address: Address: [facility] [address] [place] [address] [address] [place] [address]- Name: JOVANI APODACA DO Position: ED Physician Member Role: ED Physician Address: Address: [address] [facility] [place] [address]- Name: IAN LINDA DO Position: Resident Member Role: Resident Address: Address: [address] [facility] [place] [address]- Name: Hortencia Carreon RN Position: P3 joint yarner Member Role: joint yarner Care Team Related Persons Name: Sumeet DURADN Address: Home [address] Name: CAMILLA DURAND Care Team Personnel Name: Jessica Steiner Position: P3 Scheduling - Survey Crew Chief Advanced Member Role: Other Name: SHIRA ROY MD Position: Physician Member Role: Primary Care Physician Address: Address: [address] Name: Emmie Patino RN Position: P4 starter cup powder mixer Member Role: RN Care Team Related Persons Name: Sumeet DURAND Address: Home [address] Name: DIYA DURAND Address: Home [address] [place] [address] Goals (unrecognized section and content) Goals may be documented in a n alternate section Scheduled Active and Recently Administ ered Medications (unrecognized section and content) Medication Order 09/16/2023 09/17/2023 09/18/2023 Acetaminophen (TYLENOL) tablet 975 mg 975 mg, Oral, 3 times daily, First dose (after last modification) on Fri09/15/23 at 2100, Until Discontinued, Maximum dose of acetaminophen is 4000 mg from all sources in 24 hours. 0840 (Not Given - Provider: Jada Caldwell RN - Reason: Patient/family refused)142 (Not Given - Provider: Jada Caldwell RN - Reason: Patient/family refused)2024 (Given - Provider: Rebecca Duke RN) 0844 (Not Given - Provider: Jada Caldwell RN - Reason: Patient/family refused)154 (Not Given - Provider: Jada Caldwell RN - Reason: Patient/family refused)2028 (Not Given - Provider: Carri Lopez, RN - Reason: Patient/family refused) 0919 (Not Given - Provider: Jada Caldwell RN - Reason: Patient/family refused)1455 (Not Given - Provider: Jada Caldwell RN - Reason: Patient/family refused)2100 (Canceled Entry - Provider: System Discharge - Comment: Automatically canceled at discontinue of medication order) carveDILOL (COREG) tablet 50 mg 50 mg, Oral, EVERY 12 HOURS, First dose (after last modification) on Fri09/15/23 at 1215, Until Discontinued 08 (Given - Provider: Jada Caldwell RN)2023 (Given - Provider: Rebecca Duke RN) 0847 (Given - Provider: Jada Caldwell RN)2028 (Given - Provider: Carri Lopez RN) 09 (Given - Provider: Jada Caldwell RN)2100 (Canceled Entry - Provider: System Discharge - Comment: Automatically canceled at discontinue of medication order) cloNIDine (CATAPRES) 0.1 MG/24HR patch 1 patch(Linked Group 1) 1 patch, Transdermal, WEEKLY, First dose on Fri09/18/23 at 0900, Until Discontinued, Each bag from pharmacy contains a medication patch (containing drug) and a larger, round non-medicated cover. Apply medication patch to suitable location over intact skin (upper arm or chest) and then apply cover. Do not cut or alter patch. Rotate site weekly. 1154 (Patch Applied - Provider: Jada Caldwell RN)1946 (Due: Patch Removed - Provider: System Discharge - Comment: Time automatically adjusted from order being discontinued) cloNIDine (CATAPRES) tablet 0.1 mg (CANCELED) 0.1 mg, Oral, 3 TIMES DAILY, First dose on Fri09/16/23 at 1630, Until Discontinued 171 (Given - Provider: Jada Caldwell RN)2025 (Given - Provider: Rebecca Duke RN) 0847 (Given - Provider: Jada Caldwell RN)154 (Given - Provider: Jada Caldwell RN - Comment: HD)2028 (Given - Provider: Carri Lopez RN) epoetin miguel-epbx (RETACRIT) injection 10,000 Units 10,000 Units, Subcutaneous, WEEKLY, First dose (after last modification) on Fri09/14/23 at 1800, Until Discontinued, Refrigerate, 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 Folic acid (FOLVITE) tablet 1 mg 1 mg, Oral, DAILY, First dose on Jocelyn 09/11/23 at 0900, Until Discontinued 0840 (Given - Provider: Jada Caldwell RN) 1546 (Given - Provider: Jada Caldwell RN - Comment: HD) 0920 (Given - Provider: Jada Caldwell RN) hydrALAZINE (APRESOLINE) tablet 100 mg 100 mg, Oral, EVERY 8 HOURS, First dose (after last modification) on Fri09/15/23 at 1215, Until Discontinued 0433 (Given - Provider: Rebecca Duke RN - Comment: to give early, per provider)1324 (Given - Provider: Jada Caldwell RN)2148 (Given - Provider: Rebecca Duke RN) 0541 (Given - Provider: Rebecca Duke RN)1545 (Given - Provider: Jada Caldwell RN - Comment: HD)2152 (Given - Provider: Carri Lopez RN) 0458 (Given - Provider: Carri Lopez RN)1345 (Given - Provider: Jada Caldwell RN) Insulin lispro (HUMALOG) injection 6 Units (COMPLETED) 6 Units, Subcutaneous, ONCE, 1 dose, On Fri09/16/23 at 0045, Recheck in 1 hr, notify of result Warning! Confirm patient. If insulin pen is used, then the pen is for labeled individual patient use ONLY. 0016 (Given - Provider: Rebecca Duke RN) Insulin lispro (HUMALOG) injection 8 Units (COMPLETED) 8 Units, Subcutaneous, ONCE, 1 dose, On Fri09/16/23 at 0200, Recheck in 1 hr, notify of result Warning! Confirm patient. If insulin pen is used, then the pen is for labeled individual patient use ONLY. 0154 (Given - Provider: Rebecca Duke RN) Insulin lispro (HUMALOG) injection(Linked Group 2) Subcutaneous, 4 TIMES DAILY WITH MEALS & AT BEDTIME, First dose (after last modification) on Fri09/15/23 at 1700, Until Discontinued, Insulin to carb ratio: Standard: 1 unit insulin = 10 grams carbs every meal and at bedtime Correction Factor: 151-175 = 1 unit; 176-200 = 2 units; 201-225 = 3 units; 226-250 = 4 units; 251-275 = 5 units; 276-300 = 6 units; 301-325 = 7 units; 326-350 = 8 units; Kwikpen: Prime pen before each injection; refer to Pen Priming and Care Handout for further details. Warning! Confirm patient. Insulin pen is for labeled individual patient use ONLY. 0808 (Not Given - Provider: Jada Caldwell RN - Reason: Order Parameters not met)1324 (Given - Provider: Jada Caldwell RN)171 (Not Given - Provider: Jada Caldwell RN - Reason: Order Parameters not met - Comment: Will not give carb coverage.)2025 (Given - Provider: Rebecca Duke RN) 0921 (Given - Provider: Jada Caldwell RN)1143 (Not Given - Provider: Jada Caldwell RN - Reason: Patient not available - Comment: HD)181 (Not Given - Provider: Jada Caldwell RN - Reason: Order Parameters not met - Comment: Will not give carb coverage)214 (Given - Provider: Carri Lopez RN) 0920 (Given - Provider: Jada Caldwell RN)1159 (Not Given - Provider: Jada Caldwell RN - Reason: Order Parameters not met - Comment: Will not give carb coverage.)175 (Not Given - Provider: Jada Caldwell RN - Reason: Order Parameters not met - Comment: Will not give carb coverage.)2099 (Canceled Entry - Provider: System Discharge - Comment: Automatically canceled at discontinue of medication order) Latanoprost (XALATAN) 0.005 % ophthalmic solution 1 drop 1 drop, Both Eyes, DAILY AT BEDTIME, First dose on Fri09/10/23 at 2130, Until Discontinued, Remove contact lenses 2146 (Given - Provider: Rebecca Duke RN) 2034 (Given - Provider: Carri Lopez RN) 2100 (Canceled Entry - Provider: System Discharge - Comment: Automatically canceled at discontinue of medication order) Levothyroxine (SYNTHROID) tablet 25 mcg 25 mcg, Oral, DAILY BEFORE BREAKFAST, First dose on Fri09/11/23 at 0600, Until Discontinued 06 (Given - Provider: Rebecca Duke RN) 0541 (Given - Provider: Rebecca Duke RN) 0458 (Given - Provider: Carri Lopez RN) Lisinopril (PRINIVIL) tablet 20 mg 20 mg, Oral, EVERY 12 HOURS, First dose (after last modification) on Fri09/15/23 at 1215, Until Discontinued 08 (Given - Provider: Jada Caldwell RN)2025 (Given - Provider: Rebceca Duke RN) 0847 (Given - Provider: Jada Caldwell RN)2028 (Given - Provider: Carri Lopez RN) 0920 (Given - Provider: Jada Caldwell RN)2099 (Canceled Entry - Provider: System Discharge - Comment: Automatically canceled at discontinue of medication order) Melatonin tablet 3 mg 3 mg, Oral, DAILY AT BEDTIME, First dose on Fri09/10/23 at 2100, Until Discontinued 2024 (Given - Provider: Rebecca Duke RN) 2029 (Given - Provider: Carri Lopez RN) 2100 (Canceled Entry - Provider: System Discharge - Comment: Automatically canceled at discontinue of medication order) Mirtazapine (REMERON) tablet 7.5 mg 7.5 mg, Oral, DAILY AT BEDTIME, First dose on Fri09/15/23 at 2100, Until Discontinued 2024 (Given - Provider: Rebecca Duke RN) 2028 (Given - Provider: Carri Lopez RN) 2100 (Canceled Entry - Provider: System Discharge - Comment: Automatically canceled at discontinue of medication order) NIFEdipine (PROCARDIA XL) tablet XL 60 mg(Linked Group 3) 60 mg, Oral, DAILY, First dose (after last modification) on Fri09/15/23 at 0900, Until Discontinued, Slow release product. Do not chew or crush. 0840 (Given - Provider: Jada Caldwell RN) 1546 (Given - Provider: Jada Caldwell RN - Comment: RUSTY) 0920 (Given - Provider: Jada Caldwell RN) NIFEdipine (PROCARDIA XL) tablet XL 60 mg(Linked Group 3) 60 mg, Oral, DAILY AT BEDTIME, First dose (after last modification) on Fri09/15/23 at 2100, Until Discontinued, Slow release product. Do not chew or crush. 2023 (Given - Provider: Rebecca Duke RN) 2028 (Given - Provider: Carri Lopez RN) 2100 (Canceled Entry - Provider: System Discharge - Comment: Automatically canceled at discontinue of medication order) Pantoprazole (PROTONIX) injection 40 mg 40 mg, Intravenous, 2 TIMES DAILY, First dose on Fri09/13/23 at 1700, Until Discontinued, Dilute each 40 mg vial with 10 mL of NS. All bolus doses, whether 40 mg or 80 mg, should be administered over at least two minutes., Indications: Continuation of Home Therapy, GERD 0839 (Given - Provider: Jada Caldwell RN)171 (Given - Provider: Jada Caldwell RN) 0845 (Given - Provider: Jada Caldwell RN)1817 (Given - Provider: Jada Caldwell RN) 0920 (Given - Provider: Jada Caldwell RN)1800 (Not Given - Provider: Jada Caldwell RN - Reason: IV access lost) Sucralfate (CARAFATE) oral suspension 1,000 mg (CANCELED) 1,000 mg (1 g), Oral, BEFORE MEALS & AT BEDTIME, First dose on Fri09/15/23 at 1600, Until Discontinued, Avoid administration of other oral medications within 2 hours of sucralfate. 0839 (Given - Provider: Jada Caldwell RN)1143 (Given - Provider: Jada Caldwell RN)1711 (Given - Provider: Jada Caldwell RN)202 (Given - Provider: Rebecca Duke RN) 0845 (Given - Provider: Jada Caldwell RN)1144 (Not Given - Provider: Jada Caldwell RN - Reason: Patient not available - Comment: RUSTY)1817 (Given - Provider: Jada Caldwell RN) VERIFY LINKED PATCH PLACEMENT(Linked Group 1) Other, EVERY 12 HOURS, First dose on Fri09/18/23 at 0900, Until Discontinued, Confirm continued adhesion of cloNIDine 0.1 mg/24hr patch at documented site. 0922 (Canceled Entry - Provider: Jada Caldwell RN)2100 (Canceled Entry - Provider: System Discharge - Comment: Automatically canceled at discontinue of medication order) vitamin C/B complex/folic acid (VIRT-CAPS) capsule 1 mg 1 mg (1 capsule), Oral, DAILY, First dose on Fri09/11/23 at 0900, Until Discontinued 0839 (Given - Provider: Jada Caldwell RN) 1546 (Given - Provider: Jada Caldewll RN - Comment: HD) 0920 (Given - Provider: Jada Caldwell RN) PRN Medication Order 09/16/2023 09/17/2023 09/18/2023 Acetaminophen (TYLENOL) tablet 650 mg 650 mg, Oral, EVERY 12 HOURS NEEDED, Starting on Fri09/18/23 at 0016, Until Fri09/18/23 at 2146, Mild Pain, Moderate Pain, Severe Pain, Oral temp > 100.4 F, Headaches, Maximum dose of acetaminophen is 4000 mg from all sources in 24 hours. 0025 (Given - Provid er: Carri Lopez RN) alum/mag hydrox.-simethicone oral suspension 30 mL 30 mL, Oral, EVERY 6 HOURS NEEDED, Starting on Fri09/10/23 at 1956, Until Fri09/18/23 at 2146, Indigestion, Per 5 mL is equivalent to: (Alum-Mag Hydroxide 200-225 mg and Simethicone 20 mg) and (Alum-Mag Hydroxide 200-200 mg and Simethicone 20 mg) Dextrose 50% injection 7.5-25 g 7.5-25 g, Intravenous, ADMINISTER DIRECTED, Starting on Fri09/12/23 at 2105, Until Fri09/18/23 at 2146, Blood glucose <80 mg/dL, For patients who are not alert, are NPO, or are on IV insulin infusion administer as directed per Hypoglycemia in Non- Adults Clinical Practice Guideline. For Blood Glucose: 60-79 mg/dL administer 7.5 gm (15ml); 45-59 mg/dL administer 12.5 gm (25ml); less than 45mg/dL administer 25gm (50ml). ++ If additional dextrose 50% needed, contact pharmacy or obtain from crash cart ++ glucose (GLUTOSE) 40 % oral gel 1-2 Tube 1-2 Tube, Oral, ADMINISTER DIRECTED, Starting on Fri09/12/23 at 2105, Until Fri09/18/23 at 2145, Blood glucose <80 mg/dL, For patients who are alert, able to tolerate PO intake and with intact cognitive status administer as directed per Hypoglycemia in Non- Adults Clinical Practice Guideline. For Blood Glucose: 60-79 mg/dL administer 1 tube; 45-59 mg/dl administer 1.5 tubes; less than 45 mg/dL administer 2 tubes. Each tube of 37.5g delivers 15g of carbohydrate. 0553 (Given - Provider: Rebecca Duke RN - Comment: BG 67) Insulin lispro (HUMALOG) injection(Linked Group 2) Subcutaneous, NEEDED, Starting on Fri09/15/23 at 1610, Until Fri09/18/23 at 2145, Other, As needed for snacks, Insulin to carb ratio: Standard: 1 unit insulin = 10 grams carbs Correction Factor: not to be used with this order. Kwikpen: Prime pen before each injection; refer to Pen Priming and Care Handout for further details. Warning! Confirm patient. Insulin pen is for labeled individual patient use ONLY. Melatonin tablet 6 mg 6 mg, Oral, DAILY AT BEDTIME NEEDED, Starting on Fri09/10/23 at 195, Until Fri09/18/23 at 2145, Insomnia Ondansetron (ZOFRAN) tablet 4 mg(Linked Group 4) 4 mg, Oral, EVERY 6 HOURS NEEDED, Starting on Fri09/10/23 at 1956, Until Fri09/18/23 at 2145, Nausea / Vomiting Ondansetron 4mg/2ml (ZOFRAN) injection 4 mg(Linked Group 4) 4 mg, Intravenous, EVERY 6 HOURS NEEDED, Starting on Fri09/10/23 at 1956, Until Fri09/18/23 at 214, Nausea / Vomiting oxyCODONE (ROXICODONE) tablet 5 mg 5 mg, Oral, EVERY 4 HOURS NEEDED, Starting on 09/13/23 at 1820, Until Jocelyn 09/18/23 at 2146, Moderate Pain, Severe Pain Polyethylene glycol (MIRALAX) packet 17 g 17 g, Oral, DAILY NEEDED, Starting on Fri09/10/23 at 2035, Until Fri09/18/23 at 214, Constipation 1st Line Sodium chloride 0.9% IV solution 250 mL Intravenous, at 20 mL/hr, NEEDED, Starting on Fri09/10/23 at 1956, Until Fri09/18/23 at 2145, Carrier Fluid - See Admin. Inst, 250mL 0.9NS to be used as carrier fluid for intermittent small volume or piggyback medication administration as needed. Infusion rate of the carrier fluid should be set at 20 mL/hr unless the rate as the intermittent medication is less than 20 mL/hr. For intermittent medications with a rate less than 20 mL/hr set the carrier fluid at that rate of the intermittent or piggy back medication. Linked Groups Order Group 1: cloNIDine (CATAPRES) 0.1 MG/24HR patch 1 patchJump to med 1 patch, Transdermal, WEEKLY, First dose on Fri09/18/23 at 0900, Until Discontinued, Each bag from pharmacy contains a medication patch (containing drug) and a larger, round non-medicated cover. Apply medication patch to suitable location over intact skin (upper arm or chest) and then apply cover. Do not cut or alter patch. Rotate site weekly. And VERIFY LINKED PATCH PLACEMENTJump to med Other, EVERY 12 HOURS, First dose on Fri09/18/23 at 0900, Until Discontinued, Confirm continued adhesion of cloNIDine 0.1 mg/24hr patch at documented site. Group 2: Insulin lispro (HUMALOG) injectionJump to med Subcutaneous, 4 TIMES DAILY WITH MEALS & AT BEDTIME, First dose (after last modification) on Fri09/15/23 at 1700, Until Discontinued, Insulin to carb ratio: Standard: 1 unit insulin = 10 grams carbs every meal and at bedtime Correction Factor: 151-175 = 1 unit; 176-200 = 2 units; 201-225 = 3 units; 226-250 = 4 units; 251-275 = 5 units; 276-300 = 6 units; 301-325 = 7 units; 326-350 = 8 units; Kwikpen: Prime pen before each injection; refer to Pen Priming and Care Handout for further details. Warning! Confirm patient. Insulin pen is for labeled individual patient use ONLY. And Insulin lispro (HUMALOG) injectionJump to med Subcutaneous, NEEDED, Starting on Fri09/15/23 at 1610, Until Jocelyn 09/18/23 at 2146, Other, As needed for snacks, Insulin to carb ratio: Standard: 1 unit insulin = 10 grams carbs Correction Factor: not to be used with this order. Kwikpen: Prime pen before each injection; refer to Pen Priming and Care Handout for further details. Warning! Confirm patient. Insulin pen is for labeled individual patient use ONLY. Group 3: NIFEdipine (PROCARDIA XL) tablet XL 60 mgJump to med 60 mg, Oral, DAILY, First dose (after last modification) on Fri09/15/23 at 0900, Until Discontinued, Slow release product. Do not chew or crush. And NIFEdipine (PROCARDIA XL) tablet XL 60 mgJump to med 60 mg, Oral, DAILY AT BEDTIME, First dose (after last modification) on Fri09/15/23 at 2100, Until Discontinued, Slow release product. Do not chew or crush. Group 4: Ondansetron 4mg/2ml (ZOFRAN) injection 4 mgJump to med 4 mg, Intravenous, EVERY 6 HOURS NEEDED, Starting on Fri09/10/23 at 1956, Until Jocelyn 09/18/23 at 2146, Nausea / Vomiting Or Ondansetron (ZOFRAN) tablet 4 mgJump to med 4 mg, Oral, EVERY 6 HOURS NEEDED, Starting on Fri09/10/23 at 1956, Until Jocelyn 09/18/23 at 2146, Nausea / Vomiting FOR RECORDS PERTAINING TO PATIENTS WHO ARE OR HAVE BEEN ENROLLED IN A CHEMICAL DEPENDENCY/SUBSTANCEABUSE PROGRAM, SOME INFORMATION MAY BE OMITTED. This clinical summary was aggregated from multiple sources. Caution should be exercised in using it in the provision of clinical care. This summary normalizes information from multiple sources, and as a consequence, information in this document may materially change the coding, format and clinical context of patient data. In addition, data may be omitted in some cases. CLINICAL DECISIONS SHOULD BE BASED ON THE PRIMARY CLINICAL RECORDS. [employer] [facility]. provides no warranty or guarantee of the accuracy or completeness of information in this document.
[2024-10-16 13:05] VITALS: BP 198/80; PULSE 68; RESP 6; TEMP 36.6; O2SAT 100
== END 2024-10-16 13:15 | disposition home or self-care (01) ==
PROVIDERS: Emergency Provider Emergency Medicine; PCP Internal Medicine; Visit Provider Emergency Medicine
DX: S92.512A Displaced fracture of proximal phalanx of left lesser toe(s), initial encounter for closed fracture (principal); I13.2 Hypertensive heart and chronic kidney disease with heart failure and with stage 5 chronic kidney disease, or end stage renal disease; N18.6 End stage renal disease; I50.9 Heart failure, unspecified; E11.22 Type 2 diabetes mellitus with diabetic chronic kidney disease; E78.00 Pure hypercholesterolemia, unspecified; Z96.659 Presence of unspecified artificial knee joint; S80.02XA Contusion of left knee, initial encounter; D63.1 Anemia in chronic kidney disease; Z99.2 Dependence on renal dialysis; W07.XXXA Fall from chair, initial encounter; Z85.51 Personal history of malignant neoplasm of bladder; Z79.899 Other long term (current) drug therapy; E03.9 Hypothyroidism, unspecified; K21.9 Gastro-esophageal reflux disease without esophagitis; Z90.710 Acquired absence of both cervix and uterus; Z90.5 Acquired absence of kidney; S00.31XA Abrasion of nose, initial encounter
CPT/HCPCS: 73560; 73630; 99283